=== PATIENT | male | born 1945 | race Caucasian/White ===

== ENCOUNTER 2017-05-03 14:30 | Outpatient (RCR) | payer MEDICARE, OTHER, SELFPAY ==
[2015-10-31 10:00] VITALS: BMI 34.9
[2017-04-07 00:37] VITALS: BP 115/64; PULSE 69; RESP 18; TEMP 36.7
[2017-04-12 14:43] VITALS: BP 122/70; PULSE 79; RESP 18; TEMP 36.9; BMI 56.5
--- NOTE | 2017-04-12 20:37 | PCM.WC.HP ---
(1) Nonhealing surgical wound Status: Chronic Current Visit: Yes Qualifiers: Encounter type: initial encounter Qualified Code(s): T81.89XA - Other complications of procedures, not elsewhere classified, initial encounter Code(s): T81.89XA - Other complications of procedures, not elsewhere classified, initial encounter (2) History of atrial fibrillation Status: Chronic Current Visit: Yes Code(s): Z86.79 - Personal history of other diseases of the circulatory system (3) Malnutrition Status: Chronic Current Visit: Yes Qualifiers: Malnutrition type: protein-calorie malnutrition Protein-calorie malnutrition severity: mild Qualified Code(s): E44.1 - Mild protein-calorie malnutrition Code(s): E46 - Unspecified protein-calorie malnutrition (4) Open wound of lower back Status: Chronic Current Visit: Yes Code(s): S31.000A - Unspecified open wound of lower back and pelvis without penetration into retroperitoneum, initial encounter Comment: with muscle and bone exposed s/p surgical debridement of abscess s/p lumbar spine surgery History of Present Illness Date of Service: 04/12/17 Chief Complaint: Nonhealing surgical wound of lower back History of Wound: Cuong is a 71-year-old white male who presents for treatment of nonhealing surgical wound of his lower back s/p surgical debridement for an abscess s/p lumbar spine surgery. His original surgery on his lower back was approximately 1 year ago and he has had multiple complications since that time. He recently underwent surgical debridement on 03/04/[address] Davila at [facility] in [place] and was discharged with a wound vac for healing by secondary intention with possible muscle flap closure in the future. He currently is on Augmentin for positive wound cultures. He was referred here by his Home Health nurse as she felt that his wound needed to be debrided. He follows up with his surgeon on 04/18/17 for further evaluation and recommendations as well. He denies fever, chills, nausea, vomiting, redness. He is here with his today. Past Medical History Past Medical History: Chronic Problems Chronic ulcer of right leg with fat layer exposed (Chronic) Nonhealing surgical wound (Chronic) Open wound of lower back (Chronic) with muscle and bone exposed s/p surgical debridement of abscess s/p lumbar spine surgery Lumbar disc disease (Chronic) Edema of both legs (Chronic) Leg swelling (Chronic) History of diverticulitis (Chronic) Hyperlipidemia (Chronic) Back pain at L4-L5 level (Chronic) History of non-Hodgkin's lymphoma (Chronic) Hypertension (Chronic) Shortness of breath (Chronic) Hypoxia (Chronic) History of atrial fibrillation (Chronic) Surgical wound dehiscence (Chronic) Renal insufficiency (Chronic) Soft tissue radionecrosis (Chronic) Ulcer of left heel and midfoot with fat layer exposed (Chronic) Decubitus ulcer, heel, right, unstageable (Chronic) Peripheral vascular disease (Chronic) Edema, lower extremity (Chronic) Malnutrition (Chronic) Pressure ulcer, back, lower (Chronic) Ulcer of right foot with fat layer exposed (Chronic) Decubitus ulcer of right foot, unstageable (Chronic) Peripheral vascular disease (Chronic) Ulcer of right lower extremity with fat layer exposed (Chronic) Tinea unguium (Chronic) Surgical History: - - The patient underwent partial colectomy for diverticulitis and splenectomy in 2002. Several months later, and ileostomy, which had been performed at the time of the initial surgery, was reversed. Lumbar L4-[address] Swan at the [facility] on November 02, 2015. Allergies/Adverse Reactions: Allergies sulfamethoxazole [From Bactrim] Allergy (Verified 03/29/17 13:48) Other trimethoprim [From Bactrim] Allergy (Verified 03/29/17 13:48) Other prednisone Adverse Reaction (Verified 10/26/16 16:57) Swelling Home Medications: Ambulatory Orders Medication Instructions Recorded Budesonide/Formoterol 160/4.5 2 puff INHALATION BID 02/05/16 [Symbicort 160/4.5 Mcg Inhaler (SP)] Ferrous Gluconate 240 mg PO BID 02/05/16 Folic Acid 1 mg PO QHS 02/05/16 Furosemide 40 mg PO BID PRN 02/05/16 Magnesium Oxide [Magnesium] 400 mg PO DAILY 02/05/16 Metoprolol Tartrate [Lopressor 12.5 mg PO BID 02/05/16 (beta cyndi)] Apixaban [Eliquis] 2.5 mg PO BID 03/16/16 Atorvastatin Calcium [Lipitor] 20 mg PO QHS 03/16/16 Cholecalciferol (Vitamin D3) 1,000 unit PO QHS 10/14/16 [Vitamin D3] Gabapentin [Neurontin] 100 mg PO BIDCM #60 capsule 10/25/16 Oxycodone [Oxyir] 10 mg PO BID PRN 02/13/17 - Family History Maternal Heart Disease Paternal Diabetes Lives: Spouse/ Significant Other Smoking Status: Former smoker Tobacco Use: Non-smoker Alcohol: None Drugs: None Review of Systems Constitutional: Denies: Chills, Fever, Weight Change Eyes: Denies: Pain, Vision Change HEENT: Denies: Difficulty Hearing, Difficulty Swallowing, Sinus Congestion Cardiovascular: Denies: Chest Pain, Palpitations Respiratory: Denies: Cough, Shortness of Breath Gastrointestinal: Denies: Diarrhea, Nausea, Vomiting Genitourinary: Denies: Dysuria, Hematuria Musculoskeletal: Reports: Back Pain Skin: Reports: Wounds Hematologic/ Lymphatic: Denies: Easy Bruising, Easy Bleeding - Physical Exam Vital Signs Temp Pulse Resp BP 98.4 F 79 18 122/70 H 04/12/17 14:43 04/12/17 14:43 04/12/17 14:43 04/12/17 14:43 General: Alert, Oriented x3, Cooperative, No apparent distress HEENT: Atraumatic, Normocephalic Oral: Moist Mucosa Lungs: Clear to auscultation Cardiovascular: Regular rate, Regular Rhythm Abdomen: Soft, Non Tender Extremities: - - compression stockings on LE b/l Skin: Ulcer/ Wound Wound Measurements and Assessment - Nurse 1 - General Ulcer Measurement Start: 04/12/17 14:43 Freq: Status: Active Protocol: Activity Type Activity Date Activity User E-Sign Co-Sign Detail Recorded Client Recorded Date Recorded By Document 04/12/17 14:43 DV [id number] 04/12/17 15:07 DV 04/12/17 14:43 Wound Center Nurse 1 [Ulcer Assessment Protocol: WC.WD.LOC] #7 post op lumbar ulcer -Combined with other wound No -Current Size (cm) - Length 16.2 -Current Size (cm) - Width 5.1 -Current Size (cm) - Depth 2.0 -Total Square Cm 82.62 -Date of Last Picture (Recall this 04/12/17 field) -Photo Taken Yes -Epithelialization None Present -Tunneling No -Undermining/Tunneling No -Undermining/Tunneling Starts (O' 9 clock) -Undermining/Tunneling Ends (O'clock) 2 -Maximum Distance (cm) 2.1 -Circular Undermining No -Exudate Amt Medium (34-66%) -Exudate Type Serosanguineous -Wound Margin Distinct, Outline Attached -Granulation Amt Small (1-33%) -Granulation Quality Red -Slough/Fibrin Yes -Necrosis Amt Large (67-100%) -Necrotic Tissue Type Adherent Slough -Structure Exposed Tendon Fascia Bone -Texture (Uma-wound Skin Appearance) No Abnormality Assessed -Moisture (Uma-wound Skin Appearance Assessed ) Dry/Scaly -Color (Uma-wound Skin Appearance) No Abnormality Assessed -Temperature (Uma-wound Skin No Abnormality Appearance) (Pt Warm) -Tenderness on Palpation (Uma-wound Yes Skin Appearance) -Ulcer Cleansing Rinsed/ Irrigated with Saline -Foul Odor after Cleansing No -Anesthetic Used 4% Lidocaine Solution [Edema Assessment] -Lower Limb Edema Present No WC - Nurse 2 - General Ulcer CM Notes Start: 04/12/17 14:43 Freq: Status: Active Protocol: Activity Type Activity Date Activity User E-Sign Co-Sign Detail Recorded Client Recorded Date Recorded By Document 04/12/17 15:42 [id number] 04/12/17 15:56 04/12/17 15:42 Wound Center Nurse 2 [Procedure/Treatment] #7 post op lumbar ulcer -Time 15:47 -Correct Patient Yes -Correct Side, Site, Position Yes -Correct Procedure Yes -Procedure Performed Yes -Type of Procedure Debridement -Clinical Debridement Subcutaneous -Post Debridement Size (cm) - Length 16.3 -Post Debridement Size (cm) - Width 5.2 -Post Debridement Size (cm) - Depth 2.0 -Total Square Cm 84.76 -Wound/Ulcer Outcome Not Healed -Ulcer Cleansing Rinsed/ Irrigated with Saline -Foul Odor after Cleansing No -Bioengineered Tissue No -Cetacaine Printer No -Topical Lidocaine (%) 4 -Bleeding Controlled with Pressure -Other undermining at 9-2 oclock 2. 1cm -Treatment Response Procedure Tolerated Well [See Physician Procedure note for Specifics] Pain Scale: 0-10 Numeric [Pain] -Is Patient Pain Free? Yes Psych/Mental Status: Normal Affect, Appropriate Debridement Note Post-Debridement Measurements/Treatment WC - Nurse 2 - General Ulcer CM Notes Start: 04/12/17 14:43 Freq: Status: Active Protocol: Activity Type Activity Date Activity User E-Sign Co-Sign Detail Recorded Client Recorded Date Recorded By Document 04/12/17 15:42 [id number] 04/12/17 15:56 04/12/17 15:42 Wound Center Nurse 2 #7 post op lumbar ulcer -Time 15:47 -Correct Patient Yes -Correct Side, Site, Position Yes -Correct Procedure Yes -Procedure Performed Yes -Type of Procedure Debridement -Clinical Debridement Subcutaneous -Post Debridement Size (cm) - Length 16.3 -Post Debridement Size (cm) - Width 5.2 -Post Debridement Size (cm) - Depth 2.0 -Total Square Cm 84.76 -Wound/Ulcer Outcome Not Healed -Ulcer Cleansing Rinsed/ Irrigated with Saline -Foul Odor after Cleansing No -Bioengineered Tissue No -Cetacaine Printer No -Topical Lidocaine (%) 4 -Bleeding Controlled with Pressure -Other undermining at 9-2 oclock 2. 1cm -Treatment Response Procedure Tolerated Well Pain Scale: 0-10 Numeric Is Patient Pain Free? Yes Wound debrided: post-op lumbar ulcer/wound Laterality: Not Applicable Type of Debridement: Excisional debridement Anesthesia Used: 4% Lidocaine Solution Depth: Down to and including healthy tissue, in the subcutaneous layer, to muscle, to bone Percentage of wound debrided: 100 Instrument Used: 5mm curette Tissue Removed: yellow slough and devitalized tissue Severity: Fat Layer Exposed Amount of bleeding with debridement: Mild Bleeding Controlled with: Compression and gauze Patient tolerated procedure well Assessment/Plan Active Problems Nonhealing surgical wound (Chronic) Open wound of lower back (Chronic) with muscle and bone exposed s/p surgical debridement of abscess s/p lumbar spine surgery History of atrial fibrillation (Chronic) Surgical wound dehiscence (Chronic) Malnutrition (Chronic) Assessment: chronic surgical wound dehiscence lumbar with complex abscess and recent surgical debridement. malnutrition. other multiple comorbidities. edema bilateral lower extremities. venous insufficiency. immunocompromised status. Plan: Marco As wound/ulcer was evaluated and debrided today. There is exposure of bone at the superior area of his wound/ulcer but it is not necrotic. There is thick fibrous slough present and marbled throughout the wound bed but overall the tissue appears healthy and without signs of infection currently. Will continue wound vac treatment at 125 mm Hg with protective barrier to wound bed. He will also continue Augmentin as previously prescribed. He will follow up with his surgeon next week and f/u here on Saturday unless otherwise instructed by his surgeon. He will call if he has any redness or odor or increased drainage. F/U in 1 week.
[2017-04-19 14:38] VITALS: BP 116/77; PULSE 89; RESP 24; TEMP 36.4; BMI 56.5
--- NOTE | 2017-04-19 20:30 | PCM.WC.PN ---
(1) Nonhealing surgical wound Status: Chronic Current Visit: Yes Qualifiers: Encounter type: initial encounter Qualified Code(s): T81.89XA - Other complications of procedures, not elsewhere classified, initial encounter Code(s): T81.89XA - Other complications of procedures, not elsewhere classified, initial encounter (2) History of atrial fibrillation Status: Chronic Current Visit: Yes Code(s): Z86.79 - Personal history of other diseases of the circulatory system (3) Malnutrition Status: Chronic Current Visit: Yes Qualifiers: Malnutrition type: protein-calorie malnutrition Protein-calorie malnutrition severity: mild Qualified Code(s): E44.1 - Mild protein-calorie malnutrition Code(s): E46 - Unspecified protein-calorie malnutrition (4) Open wound of lower back Status: Chronic Current Visit: Yes Code(s): S31.000A - Unspecified open wound of lower back and pelvis without penetration into retroperitoneum, initial encounter Comment: with muscle and bone exposed s/p surgical debridement of abscess s/p lumbar spine surgery Type of Wound Date of Service: 04/19/17 Chief Complaint: Nonhealing surgical wound of lower back History of Wound: Cuong is a 71-year-old white male who presents for treatment of nonhealing surgical wound of his lower back s/p surgical debridement for an abscess s/p lumbar spine surgery. His original surgery on his lower back was approximately 1 year ago and he has had multiple complications since that time. He recently underwent surgical debridement on 03/04/[address] Davila at [facility] in [place] and was discharged with a wound vac for healing by secondary intention with possible muscle flap closure in the future. He currently is on Augmentin for positive wound cultures. He was referred here by his Home Health nurse as she felt that his wound needed to be debrided. He followed up with his surgeon on 04/18/17 for further evaluation and recommendations and they plan to close the wound with a muscle flap. He denies fever, chills, nausea, vomiting, redness. He is here with his today. Progress of Wound: Cuong returns for follow up treatment of a nonhealing surgical wound of his lumbar spine s/p excisional debridement for infection of previous spinal surgery. He is tolerating the wound vac and there has been improvement in his wound. He saw his surgeon yesterday and he plans on closing the wound in approximately 4 weeks with a muscle flap as long as it continues to do well. Cuong denies any increased pain, drainage, fever or chills and continues on antibiotic treatment per ID. - Physical Exam Vital Signs Temp Pulse Resp BP 97.6 F L 89 24 H 116/77 04/19/17 14:38 04/19/17 14:38 04/19/17 14:38 04/19/17 14:38 General: Alert, Oriented x3, Cooperative, No apparent distress HEENT: Atraumatic, Normocephalic Oral: Moist Mucosa Skin: Ulcer/ Wound Wound Measurements and Assessment - Nurse 1 - General Ulcer Measurement Start: 04/12/17 14:43 Freq: Status: Active Protocol: Activity Type Activity Date Activity User E-Sign Co-Sign Detail Recorded Client Recorded Date Recorded By Document 04/19/17 14:38 SELENA [id number] 04/19/17 14:51 SELENA 04/19/17 14:38 Wound Center Nurse 1 [Ulcer Assessment Protocol: .WD.LOC] #8 post op lumbar ulcer -Combined with other wound No -Current Size (cm) - Length 17.0 -Current Size (cm) - Width 6.0 -Current Size (cm) - Depth 2.1 -Total Square Cm 102.00 -Date of Last Picture (Recall this 04/12/17 field) -Photo Taken No -Epithelialization None Present -Tunneling No -Undermining/Tunneling No -Circular Undermining No -Classification - Thickness Full Thickness with Exposed Support Structure -Change in Wound Grade/Stage No Query Text:If change please identify the Stage/Grade in the comment (ie. S2 G3) -Exudate Amt Medium (34-66%) -Exudate Type Serosanguineous -Wound Margin Distinct, Outline Attached -Granulation Amt Small (1-33%) -Granulation Quality [place] -Slough/Fibrin Yes -Necrosis Amt None Present (0 %) -Necrotic Tissue Type Adherent Slough -Structure Exposed Bone -Texture (Uma-wound Skin Appearance) No Abnormality -Moisture (Uma-wound Skin Appearance No Abnormality ) -Color (Uma-wound Skin Appearance) No Abnormality -Temperature (Uma-wound Skin No Abnormality Appearance) (Pt Warm) -Tenderness on Palpation (Uma-wound No Skin Appearance) -Ulcer Cleansing Rinsed/ Irrigated with Saline -Foul Odor after Cleansing No -Anesthetic Used 5% Lidocaine Gel - Nurse 2 - General Ulcer CM Notes Start: 04/12/17 14:43 Freq: Status: Active Protocol: Activity Type Activity Date Activity User E-Sign Co-Sign Detail Recorded Client Recorded Date Recorded By Document 04/19/17 16:21 [id number] 04/19/17 16:31 DV 04/19/17 16:21 Wound Center Nurse 2 [Procedure/Treatment] -Time 16:22 -Correct Patient Yes -Correct Side, Site, Position Yes -Correct Procedure Yes -Procedure Performed Yes -Type of Procedure Debridement -Clinical Debridement Muscle -Post Debridement Size (cm) - Length 16.6 -Post Debridement Size (cm) - Width 6.0 -Post Debridement Size (cm) - Depth 1.5 -Total Square Cm 99.60 -Wound/Ulcer Outcome Not Healed -Ulcer Cleansing Rinsed/ Irrigated with Saline -Foul Odor after Cleansing No -Bioengineered Tissue No -Cetacaine Fishtail No -Bleeding Controlled with Pressure -Treatment Response Procedure Tolerated Well [See Physician Procedure note for Specifics] Pain Scale: 0-10 Numeric [Pain] -Is Patient Pain Free? Yes Psych/Mental Status: Normal Affect, Appropriate Debridement Note Post-Debridement Measurements/Treatment - Nurse 2 - General Ulcer CM Notes Start: 04/12/17 14:43 Freq: Status: Active Protocol: Activity Type Activity Date Activity User E-Sign Co-Sign Detail Recorded Client Recorded Date Recorded By Document 04/12/17 15:42 [id number] 04/12/17 15:56 Document 04/19/17 16:21 [id number] 04/19/17 16:31 04/12/17 04/19/17 15:42 16:21 Wound Center Nurse 2 #8 post op lumbar ulcer -Time 15:47 16:22 -Correct Patient Yes Yes -Correct Side, Site, Position Yes Yes -Correct Procedure Yes Yes -Procedure Performed Yes Yes -Type of Procedure Debridement Debridement -Clinical Debridement Subcutaneous Muscle -Post Debridement Size (cm) - Length 16.3 16.6 -Post Debridement Size (cm) - Width 5.2 6.0 -Post Debridement Size (cm) - Depth 2.0 1.5 -Total Square Cm 84.76 99.60 -Wound/Ulcer Outcome Not Healed Not Healed -Ulcer Cleansing Rinsed/ Rinsed/ Irrigated with Irrigated with Saline Saline -Foul Odor after Cleansing No No -Bioengineered Tissue No No -Cetacaine Fishtail No No -Topical Lidocaine (%) 4 -Bleeding Controlled with Pressure Pressure -Other undermining at 9-2 oclock 2. 1cm -Treatment Response Procedure Procedure Tolerated Well Tolerated Well Pain Scale: 0-10 Numeric Is Patient Pain Free? Yes Yes Wound debrided: post-op lumbar ulcer Laterality: Not Applicable Type of Debridement: Excisional debridement Anesthesia Used: 4% Lidocaine Solution, 5% Lidocaine Gel Depth: Down to and including healthy tissue, in the subcutaneous layer, to muscle Percentage of wound debrided: 100 Instrument Used: 5mm curette Tissue Removed: yellow slough, devitalized tissue Severity: Necrosis of Muscle Amount of bleeding with debridement: Mild Bleeding Controlled with: Compression and gauze Patient tolerated procedure well Assessment/Plan Active Problems Nonhealing surgical wound (Chronic) Open wound of lower back (Chronic) with muscle and bone exposed s/p surgical debridement of abscess s/p lumbar spine surgery History of atrial fibrillation (Chronic) Surgical wound dehiscence (Chronic) Malnutrition (Chronic) Assessment: chronic surgical wound dehiscence lumbar with complex abscess and recent surgical debridement. malnutrition. other multiple comorbidities. edema bilateral lower extremities. venous insufficiency. immunocompromised status. Plan: Cuong's wound/ulcer was evaluated and debrided today. There is exposure of bone at the superior area of his wound/ulcer but it is not necrotic. There is thick fibrous slough present and marbled throughout the wound bed but overall the tissue appears healthy and without signs of infection currently. Will continue wound vac treatment at 125 mm Hg with protective barrier to wound bed. He will also continue Augmentin as previously prescribed. He will call if he has any redness or odor or increased drainage. F/U in 2 weeks.
[2017-05-03 14:53] VITALS: BP 141/72; PULSE 67; RESP 20; TEMP 35.8; BMI 56.5
--- NOTE | 2017-05-03 20:48 | PN.PCM_ITS ---
(1) Nonhealing surgical wound Status: Chronic Current Visit: Yes Qualifiers: Encounter type: initial encounter Qualified Code(s): T81.89XA - Other complications of procedures, not elsewhere classified, initial encounter Code(s): T81.89XA - Other complications of procedures, not elsewhere classified , initial encounter (2) History of atrial fibrillation Status: Chronic Current Visit: Yes Code(s): Z86.79 - Personal history of other diseases of the circulatory system (3) Malnutrition Status: Chronic Current Visit: Yes Qualifiers: Malnutrition type: protein-calorie malnutrition Protein-calorie malnutrition severity: mild Qualified Code(s): E44.1 - Mild protein-calorie malnutrition Code(s): E46 - Unspecified protein-calorie malnutrition (4) Open wound of lower back Status: Chronic Current Visit: Yes Code(s): S31.000A - Unspecified open wound of lower back and pelvis without penetration into retroperitoneum, initial encounter Comment: with muscle and bone exposed s/p surgical debridement of abscess s/p lumbar spine surgery Type of Wound Date of Service: 05/03/17 Chief Complaint: Nonhealing surgical wound of lower back History of Wound: Cuong is a 71-year-old white male who presents for treatment of nonhealing surgical wound of his lower back s/p surgical debridement for an abscess s/p lumbar spine surgery. His original surgery on his lower back was approximately 1 year ago and he has had multiple complications since that time. He recently underwent surgical debridement on 03/04/[address] Davila at [facility] in [place] and was discharged with a wound vac for healing by secondary intention with possible muscle flap closure in the future. He currently is on Augmentin for positive wound cultures. He was referred here by his Home Health nurse as she felt that his wound needed to be debrided. He followed up with his surgeon on 04/18/17 for further evaluation and recommendations and they plan to close the wound with a muscle flap. He denies fever, chills, nausea, vomiting, redness. He is here with his today. Progress of Wound: Cuong returns for follow up treatment of a nonhealing surgical wound of his lumbar spine s/p excisional debridement for infection of previous spinal surgery. He is tolerating the wound vac and there has been improvement in his wound. He is scheduled to have closure of his wound by his surgeon at [facility] on 05/14/17. Cuong denies any increased pain, drainage, fever or chills and continues on antibiotic treatment per ID. - Physical Exam Vital Signs Temp Pulse Resp BP 96.4 F L 67 20 H 141/72 H 05/03/17 14:53 05/03/17 14:53 05/03/17 14:53 05/03/17 14:53 General: Alert, Oriented x3, Cooperative, No apparent distress HEENT: Atraumatic, Normocephalic Oral: Moist Mucosa Skin: Ulcer/ Wound Wound Measurements and Assessment WC - Nurse 1 - General Ulcer Measurement Start: 04/12/17 14:43 Freq: Status: Active Protocol: Activity Type Activity Date Activity User E-Sign Co-Sign Detail Recorded Client Recorded Date Recorded By Document 05/03/17 14:53 DL [id number] 05/03/17 15:02 DL 05/03/17 14:53 Wound Center Nurse 1 [Ulcer Assessment Protocol: WC.WD.LOC] #8 post op lumbar ulcer -Current Size (cm) - Length 16 -Current Size (cm) - Width 5.8 -Current Size (cm) - Depth 1.1 -Total Square Cm 92.8 -Photo Taken No -Undermining/Tunneling Starts (O' 10 clock) -Undermining/Tunneling Ends (O'clock) 1 -Maximum Distance (cm) 1.4 -Exudate Amt Medium (34-66%) -Exudate Type Serosanguineous -Wound Margin Distinct, Outline Attached -Granulation Amt Medium (34-66%) -Granulation Quality Red -Necrosis Amt Medium (34-66%) -Necrotic Tissue Type Adherent Slough -Structure Exposed N/A -Texture (Uma-wound Skin Appearance) No Abnormality -Moisture (Uma-wound Skin Appearance Dry/Scaly ) -Color (Uma-wound Skin Appearance) No Abnormality -Temperature (Uma-wound Skin No Abnormality Appearance) (Pt Warm) -Tenderness on Palpation (Uma-wound No Skin Appearance) -Ulcer Cleansing Wound Cleanser -Foul Odor after Cleansing No -Anesthetic Used 4% Lidocaine Solution WC - Nurse 2 - General Ulcer CM Notes Start: 04/12/17 14:43 Freq: Status: Active Protocol: Activity Type Activity Date Activity User E-Sign Co-Sign Detail Recorded Client Recorded Date Recorded By Document 05/03/17 16:07 TM [id number] 05/03/17 16:17 05/03/17 16:07 Wound Center Nurse 2 [Procedure/Treatment] -Time 16:08 -Correct Patient Yes -Correct Side, Site, Position Yes -Correct Procedure Yes -Procedure Performed Yes -Type of Procedure Debridement -Clinical Debridement Subcutaneous -Post Debridement Size (cm) - Length 16.5 -Post Debridement Size (cm) - Width 6.0 -Post Debridement Size (cm) - Depth 1.5 -Total Square Cm 99.00 -Wound/Ulcer Outcome Not Healed -Ulcer Cleansing Rinsed/ Irrigated with Saline -Foul Odor after Cleansing No -Bioengineered Tissue No -Cetacaine [place] No -Topical Lidocaine (%) 5 -Bleeding Controlled with Pressure -Treatment Response Procedure Tolerated Well [See Physician Procedure note for Specifics] Pain Scale: 0-10 Numeric [Pain] -Is Patient Pain Free? Yes Psych/Mental Status: Normal Affect, Appropriate Debridement Note Post-Debridement Measurements/Treatment WC - Nurse 2 - General Ulcer CM Notes Start: 04/12/17 14:43 Freq: Status: Active Protocol: Activity Type Activity Date Activity User E-Sign Co-Sign Detail Recorded Client Recorded Date Recorded By Document 04/12/17 15:42 [id number] 04/12/17 15:56 Document 04/19/17 16:21 [id number] 04/19/17 16:31 DV Document 05/03/17 16:07 [id number] 05/03/17 16:17 04/12/17 04/19/17 05/03/17 15:42 16:21 16:07 Wound Center Nurse 2 #8 post op lumbar ulcer -Time 15:47 16:22 16:08 -Correct Patient Yes Yes Yes -Correct Side, Site, Position Yes Yes Yes -Correct Procedure Yes Yes Yes -Procedure Performed Yes Yes Yes -Type of Procedure Debridement Debridement Debridement -Clinical Debridement Subcutaneous Muscle Subcutaneous -Post Debridement Size (cm) - Length 16.3 16.6 16.5 -Post Debridement Size (cm) - Width 5.2 6.0 6.0 -Post Debridement Size (cm) - Depth 2.0 1.5 1.5 -Total Square Cm 84.76 99.60 99.00 -Wound/Ulcer Outcome Not Healed Not Healed Not Healed -Ulcer Cleansing Rinsed/ Rinsed/ Rinsed/ Irrigated with Irrigated with Irrigated with Saline Saline Saline -Foul Odor after Cleansing No No No -Bioengineered Tissue No No No -Cetacaine [place] No No No -Topical Lidocaine (%) 4 5 -Bleeding Controlled with Pressure Pressure Pressure -Other undermining at 9-2 oclock 2. 1cm -Treatment Response Procedure Procedure Procedure Tolerated Well Tolerated Well Tolerated Well Pain Scale: 0-10 Numeric Is Patient Pain Free? Yes Yes Yes Wound debrided: post-op lumbar ulcer Laterality: Not Applicable Type of Debridement: Excisional debridement Anesthesia Used: 4% Lidocaine Solution Depth: Down to and including healthy tissue, in the subcutaneous layer Percentage of wound debrided: 100 Instrument Used: 7mm curette Tissue Removed: yellow slough, devitalized tissue Severity: Fat Layer Exposed Amount of bleeding with debridement: Mild Bleeding Controlled with: Compression and gauze Patient tolerated procedure well Assessment/Plan Active Problems Nonhealing surgical wound (Chronic) Open wound of lower back (Chronic) with muscle and bone exposed s/p surgical debridement of abscess s/p lumbar spine surgery History of atrial fibrillation (Chronic) Surgical wound dehiscence (Chronic) Malnutrition (Chronic) Assessment: chronic surgical wound dehiscence lumbar with complex abscess and recent surgical debridement. malnutrition. other multiple comorbidities. edema bilateral lower extremities. venous insufficiency. immunocompromised status. Plan: Cuong's wound/ulcer was evaluated and debrided today. There is exposure of bone still at the superior area of his wound/ulcer but it is not necrotic. There is thick fibrous slough present and marbled throughout the wound bed but overall the tissue appears healthy and without signs of infection currently. Will continue wound vac treatment at 125 mm Hg with protective barrier to wound bed. He will also continue Augmentin as previously prescribed. He will call if he has any redness or odor or increased drainage. F/U post-operatively if necessary.
== END 2017-05-05 23:59 ==
LOC: WC 14:30
PROVIDERS: Family Provider Family Medicine; PCP Family Medicine; Visit Provider Family Medicine
DX: I87.2 Venous insufficiency (chronic) (peripheral) (principal); R60.0 Localized edema; T81.30XA Disruption of wound, unspecified, initial encounter; I48.91 Unspecified atrial fibrillation; S31.000A Unspecified open wound of lower back and pelvis without penetration into retroperitoneum, initial encounter; X58.XXXA Exposure to other specified factors, initial encounter; N18.3 Chronic kidney disease, stage 3 (moderate); D63.1 Anemia in chronic kidney disease; E44.1 Mild protein-calorie malnutrition
CPT/HCPCS: 11042; 11043; 11045; 11046; 36415; 80069; 85014; 85018; 85025; 96372; 97605; 97606; 99213; J0885; G0463

== ENCOUNTER 2017-05-31 10:17 | Outpatient (RCR) | payer MEDICARE, OTHER, SELFPAY ==
[2015-10-31 10:00] VITALS: BMI 34.9
[2017-05-06 00:58] VITALS: BP 141/72; PULSE 67; RESP 20; TEMP 35.8; BMI 56.5
[2017-05-31 13:45] VITALS: BP 119/60; PULSE 67; RESP 16; TEMP 36.6; BMI 56.5
--- NOTE | 2017-05-31 18:56 | PCM.WC.PN ---
(1) Nonhealing surgical wound Status: Chronic Current Visit: Yes Qualifiers: Encounter type: subsequent encounter Qualified Code(s): T81.89XD - Other complications of procedures, not elsewhere classified, subsequent encounter Code(s): T81.89XA - Other complications of procedures, not elsewhere classified, initial encounter (2) Open wound of lower back Status: Chronic Current Visit: Yes Code(s): S31.000A - Unspecified open wound of lower back and pelvis without penetration into retroperitoneum, initial encounter Comment: with muscle and bone exposed s/p surgical debridement of abscess s/p lumbar spine surgery (3) Lumbar disc disease Status: Chronic Current Visit: Yes Code(s): M51.9 - Unspecified thoracic, thoracolumbar and lumbosacral intervertebral disc disorder (4) History of non-Hodgkin's lymphoma Status: Chronic Current Visit: No Code(s): Z85.72 - Personal history of non-Hodgkin lymphomas (5) Soft tissue radionecrosis Status: Chronic Current Visit: No Code(s): M79.89 - Other specified soft tissue disorders; W88.8XXA - Exposure to other ionizing radiation, initial encounter Type of Wound Date of Service: 05/31/17 Chief Complaint: Nonhealing surgical wound of lower back History of Wound: Cuong is a 71-year-old white male who presents for treatment of nonhealing surgical wound of his lower back s/p surgical debridement for an abscess s/p lumbar spine surgery. His original surgery on his lower back was approximately 1 year ago and he has had multiple complications since that time. He recently underwent surgical debridement on 03/04/[address] Davila at [facility] in [place] and was discharged with a wound vac for healing by secondary intention with possible muscle flap closure in the future. He currently is on Augmentin for positive wound cultures. He was referred here by his Home Health nurse as she felt that his wound needed to be debrided. He followed up with his surgeon on 04/18/17 for further evaluation and recommendations and they plan to close the wound with a muscle flap. He denies fever, chills, nausea, vomiting, redness. He is here with his today. Progress of Wound: Cuong returns for follow up treatment of a nonhealing surgical wound of his lumbar spine s/p excisional debridement for infection of previous spinal surgery. He was scheduled to have closure of his wound by his surgeon at [facility] on 05/14/17 but his surgeon felt that there was infection present and delayed surgery. His surgeon discontinued the wound vac at Cuong's request and he has been using wet to dry dressings 2-3 times/day. Cuong denies any increased pain, drainage, fever or chills and is currently taking Keflex prescribed by surgery at [facility] for positive wound culture per Cuong. He is scheduled to see them again on 06/13/17. - Physical Exam Vital Signs Temp Pulse Resp BP 97.8 F 67 16 119/60 05/31/17 13:45 05/31/17 13:45 05/31/17 13:45 05/31/17 13:45 General: Alert, Oriented x3, Cooperative, No apparent distress HEENT: Atraumatic, Normocephalic Oral: Moist Mucosa Skin: Ulcer/ Wound Wound Measurements and Assessment WC - Nurse 1 - General Ulcer Measurement Start: 05/31/17 13:45 Freq: Status: Active Protocol: Activity Type Activity Date Activity User E-Sign Co-Sign Detail Recorded Client Recorded Date Recorded By Document 05/31/17 13:45 [facility] [id number] 05/31/17 13:56 [facility] 05/31/17 13:45 Wound Center Nurse 1 [Ulcer Assessment Protocol: ELIZABETH.WD.LOC] #8 post op lumbar ulcer -Combined with other wound No -Current Size (cm) - Length 15.6 -Current Size (cm) - Width 5.1 -Current Size (cm) - Depth 1.4 -Total Square Cm 79.56 -Date of Last Picture (Recall this 05/31/17 field) -Photo Taken Yes -Tunneling No -Undermining/Tunneling No -Exudate Amt Medium (34-66%) -Exudate Type Sanguineous -Granulation Amt Medium (34-66%) -Granulation Quality Pale Red -Slough/Fibrin Yes -Necrosis Amt Medium (34-66%) -Necrotic Tissue Type Adherent Slough -Structure Exposed N/A -Texture (Uma-wound Skin Appearance) Scarring -Moisture (Uma-wound Skin Appearance Assessed ) -Color (Uma-wound Skin Appearance) Assessed -Temperature (Uma-wound Skin No Abnormality Appearance) (Pt Warm) -Tenderness on Palpation (Uma-wound No Skin Appearance) -Ulcer Cleansing Rinsed/ Irrigated with Saline -Foul Odor after Cleansing No -Anesthetic Used 4% Lidocaine Solution - Nurse 2 - General Ulcer CM Notes Start: 05/31/17 13:45 Freq: Status: Active Protocol: Activity Type Activity Date Activity User E-Sign Co-Sign Detail Recorded Client Recorded Date Recorded By Document 05/31/17 14:32 [id number] 05/31/17 14:44 05/31/17 14:32 Wound Center Nurse 2 [Procedure/Treatment] -Time 14:32 -Correct Patient Yes -Correct Side, Site, Position Yes -Correct Procedure Yes -Procedure Performed Yes -Type of Procedure Debridement -Clinical Debridement Muscle -Post Debridement Size (cm) - Length 15.7 -Post Debridement Size (cm) - Width 5.7 -Post Debridement Size (cm) - Depth 1.5 -Total Square Cm 89.49 -Wound/Ulcer Outcome Not Healed -Ulcer Cleansing Rinsed/ Irrigated with Saline -Foul Odor after Cleansing No -Bioengineered Tissue No -Cetacaine [place] No -Topical Lidocaine (%) 5 -Bleeding Controlled with Pressure -Treatment Response Procedure Tolerated Well [See Physician Procedure note for Specifics] Pain Scale: 0-10 Numeric [Pain] -Is Patient Pain Free? Yes Psych/Mental Status: Normal Affect, Appropriate Debridement Note Post-Debridement Measurements/Treatment - Nurse 2 - General Ulcer CM Notes Start: 05/31/17 13:45 Freq: Status: Active Protocol: Activity Type Activity Date Activity User E-Sign Co-Sign Detail Recorded Client Recorded Date Recorded By Document 05/31/17 14:32 [id number] 05/31/17 14:44 05/31/17 14:32 Wound Center Nurse 2 #8 post op lumbar ulcer -Time 14:32 -Correct Patient Yes -Correct Side, Site, Position Yes -Correct Procedure Yes -Procedure Performed Yes -Type of Procedure Debridement -Clinical Debridement Muscle -Post Debridement Size (cm) - Length 15.7 -Post Debridement Size (cm) - Width 5.7 -Post Debridement Size (cm) - Depth 1.5 -Total Square Cm 89.49 -Wound/Ulcer Outcome Not Healed -Ulcer Cleansing Rinsed/ Irrigated with Saline -Foul Odor after Cleansing No -Bioengineered Tissue No -Cetacaine [place] No -Topical Lidocaine (%) 5 -Bleeding Controlled with Pressure -Treatment Response Procedure Tolerated Well Pain Scale: 0-10 Numeric Is Patient Pain Free? Yes Wound debrided: post-op lumbar ulcer Laterality: Not Applicable Type of Debridement: Excisional debridement Anesthesia Used: 4% Lidocaine Solution Depth: Down to and including healthy tissue, in the subcutaneous layer, to muscle Percentage of wound debrided: 100 Instrument Used: 5mm curette, #15 blade, Forceps Tissue Removed: yellow slough, thick fibrous slough and devitalized tissue Severity: Necrosis of Muscle Amount of bleeding with debridement: Mild Bleeding Controlled with: Compression and gauze Patient tolerated procedure well Assessment/Plan Active Problems Nonhealing surgical wound (Chronic) Open wound of lower back (Chronic) with muscle and bone exposed s/p surgical debridement of abscess s/p lumbar spine surgery Lumbar disc disease (Chronic) Assessment: chronic surgical wound dehiscence lumbar with complex abscess and recent surgical debridement. malnutrition. other multiple comorbidities. edema bilateral lower extremities. venous insufficiency. immunocompromised status. Plan: Marco As wound/ulcer was evaluated and debrided today. There is exposure of bone still at the superior area of his wound/ulcer but it is not necrotic. There is thick fibrous slough present and marbled throughout the wound bed but especially at the base of the wound but overall the tissue appears healthy and without signs of infection currently. Will continue to use wet to dry dressings as prescribed by the surgeon. Complete Keflex as prescribed by surgery. He will call if he has any redness or odor or increased drainage. F/U 1 week.
--- NOTE | 2017-05-31 19:04 | PN.PCM_ITS ---
(1) Nonhealing surgical wound Status: Chronic Current Visit: Yes Qualifiers: Encounter type: subsequent encounter Qualified Code(s): T81.89XD - Other complications of procedures, not elsewhere classified, subsequent encounter Code(s): T81.89XA - Other complications of procedures, not elsewhere classified , initial encounter (2) Open wound of lower back Status: Chronic Current Visit: Yes Code(s): S31.000A - Unspecified open wound of lower back and pelvis without penetration into retroperitoneum, initial encounter Comment: with muscle and bone exposed s/p surgical debridement of abscess s/p lumbar spine surgery (3) Lumbar disc disease Status: Chronic Current Visit: Yes Code(s): M51.9 - Unspecified thoracic, thoracolumbar and lumbosacral intervertebral disc disorder (4) History of non-Hodgkin's lymphoma Status: Chronic Current Visit: No Code(s): Z85.72 - Personal history of non- Hodgkin lymphomas (5) Soft tissue radionecrosis Status: Chronic Current Visit: No Code(s): M79.89 - Other specified soft tissue disorders; W88.8XXA - Exposure to other ionizing radiation, initial encounter Type of Wound Date of Service: 05/31/17 Chief Complaint: Nonhealing surgical wound of lower back History of Wound: Cuong is a 71-year-old white male who presents for treatment of nonhealing surgical wound of his lower back s/p surgical debridement for an abscess s/p lumbar spine surgery. His original surgery on his lower back was approximately 1 year ago and he has had multiple complications since that time. He recently underwent surgical debridement on 03/04/[address] Davila at [facility] in [place] and was discharged with a wound vac for healing by secondary intention with possible muscle flap closure in the future. He currently is on Augmentin for positive wound cultures. He was referred here by his Home Health nurse as she felt that his wound needed to be debrided. He followed up with his surgeon on 04/18/17 for further evaluation and recommendations and they plan to close the wound with a muscle flap. He denies fever, chills, nausea, vomiting, redness. He is here with his today. Progress of Wound: Cuong returns for follow up treatment of a nonhealing surgical wound of his lumbar spine s/p excisional debridement for infection of previous spinal surgery. He was scheduled to have closure of his wound by his surgeon at [facility] on 05/14/17 but his surgeon felt that there was infection present and delayed surgery. His surgeon discontinued the wound vac at Cuong's request and he has been using wet to dry dressings 2-3 times/day. Cuong denies any increased pain, drainage, fever or chills and is currently taking Keflex prescribed by surgery at [facility] for positive wound culture per Cuong. He is scheduled to see them again on 06/13/17. - Physical Exam Vital Signs Temp Pulse Resp BP 97.8 F 67 16 119/60 05/31/17 13:45 05/31/17 13:45 05/31/17 13:45 05/31/17 13:45 General: Alert, Oriented x3, Cooperative, No apparent distress HEENT: Atraumatic, Normocephalic Oral: Moist Mucosa Skin: Ulcer/ Wound Wound Measurements and Assessment WC - Nurse 1 - General Ulcer Measurement Start: 05/31/17 13:45 Freq: Status: Active Protocol: Activity Type Activity Date Activity User E-Sign Co-Sign Detail Recorded Client Recorded Date Recorded By Document 05/31/17 13:45 [facility] [id number] 05/31/17 13:56 [facility] 05/31/17 13:45 Wound Center Nurse 1 [Ulcer Assessment Protocol: ELIZABETH.WD.LOC] #8 post op lumbar ulcer -Combined with other wound No -Current Size (cm) - Length 15.6 -Current Size (cm) - Width 5.1 -Current Size (cm) - Depth 1.4 -Total Square Cm 79.56 -Date of Last Picture (Recall this 05/31/17 field) -Photo Taken Yes -Tunneling No -Undermining/Tunneling No -Exudate Amt Medium (34-66%) -Exudate Type Sanguineous -Granulation Amt Medium (34-66%) -Granulation Quality Pale Red -Slough/Fibrin Yes -Necrosis Amt Medium (34-66%) -Necrotic Tissue Type Adherent Slough -Structure Exposed N/A -Texture (Uma-wound Skin Appearance) Scarring -Moisture (Uma-wound Skin Appearance Assessed ) -Color (Uma-wound Skin Appearance) Assessed -Temperature (Uma-wound Skin No Abnormality Appearance) (Pt Warm) -Tenderness on Palpation (Uma-wound No Skin Appearance) -Ulcer Cleansing Rinsed/ Irrigated with Saline -Foul Odor after Cleansing No -Anesthetic Used 4% Lidocaine Solution - Nurse 2 - General Ulcer CM Notes Start: 05/31/17 13:45 Freq: Status: Active Protocol: Activity Type Activity Date Activity User E-Sign Co-Sign Detail Recorded Client Recorded Date Recorded By Document 05/31/17 14:32 [id number] 05/31/17 14:44 05/31/17 14:32 Wound Center Nurse 2 [Procedure/Treatment] -Time 14:32 -Correct Patient Yes -Correct Side, Site, Position Yes -Correct Procedure Yes -Procedure Performed Yes -Type of Procedure Debridement -Clinical Debridement Muscle -Post Debridement Size (cm) - Length 15.7 -Post Debridement Size (cm) - Width 5.7 -Post Debridement Size (cm) - Depth 1.5 -Total Square Cm 89.49 -Wound/Ulcer Outcome Not Healed -Ulcer Cleansing Rinsed/ Irrigated with Saline -Foul Odor after Cleansing No -Bioengineered Tissue No -Cetacaine [place] No -Topical Lidocaine (%) 5 -Bleeding Controlled with Pressure -Treatment Response Procedure Tolerated Well [See Physician Procedure note for Specifics] Pain Scale: 0-10 Numeric [Pain] -Is Patient Pain Free? Yes Psych/Mental Status: Normal Affect, Appropriate Debridement Note Post-Debridement Measurements/Treatment - Nurse 2 - General Ulcer CM Notes Start: 05/31/17 13:45 Freq: Status: Active Protocol: Activity Type Activity Date Activity User E-Sign Co-Sign Detail Recorded Client Recorded Date Recorded By Document 05/31/17 14:32 [id number] 05/31/17 14:44 05/31/17 14:32 Wound Center Nurse 2 #8 post op lumbar ulcer -Time 14:32 -Correct Patient Yes -Correct Side, Site, Position Yes -Correct Procedure Yes -Procedure Performed Yes -Type of Procedure Debridement -Clinical Debridement Muscle -Post Debridement Size (cm) - Length 15.7 -Post Debridement Size (cm) - Width 5.7 -Post Debridement Size (cm) - Depth 1.5 -Total Square Cm 89.49 -Wound/Ulcer Outcome Not Healed -Ulcer Cleansing Rinsed/ Irrigated with Saline -Foul Odor after Cleansing No -Bioengineered Tissue No -Cetacaine [place] No -Topical Lidocaine (%) 5 -Bleeding Controlled with Pressure -Treatment Response Procedure Tolerated Well Pain Scale: 0-10 Numeric Is Patient Pain Free? Yes Wound debrided: post-op lumbar ulcer Laterality: Not Applicable Type of Debridement: Excisional debridement Anesthesia Used: 4% Lidocaine Solution Depth: Down to and including healthy tissue, in the subcutaneous layer, to muscle Percentage of wound debrided: 100 Instrument Used: 5mm curette, #15 blade, Forceps Tissue Removed: yellow slough, thick fibrous slough and devitalized tissue Severity: Necrosis of Muscle Amount of bleeding with debridement: Mild Bleeding Controlled with: Compression and gauze Patient tolerated procedure well Assessment/Plan Active Problems Nonhealing surgical wound (Chronic) Open wound of lower back (Chronic) with muscle and bone exposed s/p surgical debridement of abscess s/p lumbar spine surgery Lumbar disc disease (Chronic) Assessment: chronic surgical wound dehiscence lumbar with complex abscess and recent surgical debridement. malnutrition. other multiple comorbidities. edema bilateral lower extremities. venous insufficiency. immunocompromised status. Plan: Marco As wound/ulcer was evaluated and debrided today. There is exposure of bone still at the superior area of his wound/ulcer but it is not necrotic. There is thick fibrous slough present and marbled throughout the wound bed but especially at the base of the wound but overall the tissue appears healthy and without signs of infection currently. Will continue to use wet to dry dressings as prescribed by the surgeon. Complete Keflex as prescribed by surgery. He will call if he has any redness or odor or increased drainage. F/U 1 week.
== END 2017-06-05 23:59 ==
LOC: WC 10:17
PROVIDERS: Family Provider Family Medicine; PCP Family Medicine; Visit Provider Family Medicine
DX: L59.8 Other specified disorders of the skin and subcutaneous tissue related to radiation (principal); Y84.2 Radiological procedure and radiotherapy as the cause of abnormal reaction of the patient, or of later complication, without mention of misadventure at the time of the procedure; Z85.72 Personal history of non-Hodgkin lymphomas; M51.9 Unspecified thoracic, thoracolumbar and lumbosacral intervertebral disc disorder; T81.30XA Disruption of wound, unspecified, initial encounter
CPT/HCPCS: 11043; 11046

== ENCOUNTER → 2017-06-03 11:09 | Outpatient (CLI) | payer MEDICARE, OTHER, SELFPAY ==
[2015-10-31 10:00] VITALS: BMI 34.9
[2017-06-03 11:44] VITALS: BP 116/63; PULSE 65; RESP 18; TEMP 36.4; O2SAT 99; BMI 25.9
[2017-06-03 11:56] LABS: Hematocrit 32.3 % (40-54); Hemoglobin 10.4 g/dl (13.0-16.5)
[2017-06-03 12:05] LABS: Albumin, Serum 2.6 g/dL (3.2-5.0); BUN 61 mg/dL (7-18); BUN/Creat Ratio 37.2 RATIO (10-20); Calcium,Total 8.9 mg/dL (8.5-10.1); Chloride 108 mmol/L (98-107); Creatinine, Serum 1.64 mg/dL (0.70-1.30); EST Glomerular Filtration Rate 44 mL/min (>60); Est Glom Filt Rate - Afr Amer 53 mL/min (>60); Estimated Creatinine Clearance 38.81 ml/min; Glucose 95 mg/dL (70-110); Phosphorus 3.7 mg/dL (2.5-4.9); Potassium 4.5 mmol/L (3.5-5.1); Sodium Level 138 mmol/L (136-145)
== END ==
PROVIDERS: Family Provider Family Medicine; PCP Family Medicine; Visit Provider Internal Medicine Nephrology
DX: N18.3 Chronic kidney disease, stage 3 (moderate) (principal); D63.1 Anemia in chronic kidney disease
CPT/HCPCS: 80069; 85014; 85018; 96372; J0885

== ENCOUNTER 2017-06-07 09:28 | Outpatient (RCR) | payer MEDICARE, OTHER, SELFPAY ==
[2015-10-31 10:00] VITALS: BMI 34.9
[2017-06-06 00:41] VITALS: BP 119/60; PULSE 67; RESP 16; TEMP 36.6; BMI 56.5
[2017-06-07 14:50] VITALS: BP 126/65; PULSE 76; RESP 18; TEMP 36.3; BMI 56.5
--- NOTE | 2017-06-07 19:11 | PN.PCM_ITS ---
(1) Nonhealing surgical wound Status: Chronic Current Visit: Yes Qualifiers: Encounter type: subsequent encounter Code(s): T81.89XA - Other complications of procedures, not elsewhere classified , initial encounter (2) Open wound of lower back Status: Chronic Current Visit: Yes Code(s): S31.000A - Unspecified open wound of lower back and pelvis without penetration into retroperitoneum, initial encounter Comment: with muscle and bone exposed s/p surgical debridement of abscess s/p lumbar spine surgery Type of Wound Date of Service: 06/07/17 Chief Complaint: Nonhealing surgical wound of lower back History of Wound: Cuong is a 71-year-old white male who presents for treatment of nonhealing surgical wound of his lower back s/p surgical debridement for an abscess s/p lumbar spine surgery. His original surgery on his lower back was approximately 1 year ago and he has had multiple complications since that time. He recently underwent surgical debridement on 03/04/[address] Davila at [facility] in [place] and was discharged with a wound vac for healing by secondary intention with possible muscle flap closure in the future. He currently is on Augmentin for positive wound cultures. He was referred here by his Home Health nurse as she felt that his wound needed to be debrided. He followed up with his surgeon on 04/18/17 for further evaluation and recommendations and they plan to close the wound with a muscle flap. He denies fever, chills, nausea, vomiting, redness. He is here with his today. Progress of Wound: Cuong returns for follow up treatment of a nonhealing surgical wound of his lumbar spine s/p excisional debridement for infection of previous spinal surgery. He was scheduled to have closure of his wound by his surgeon at [facility] on 05/14/17 but his surgeon felt that there was infection present and delayed surgery. His surgeon discontinued the wound vac at Cuong's request and he has been using wet to dry dressings 2-3 times/day. Cuong denies any increased pain, drainage, fever or chills and completed Keflex prescribed by surgery at [facility] for positive wound culture per Cuong. He is scheduled to see them again on 06/13/17. He has been tolerating wet to dry dressings and there is no odor or increase in drainage. - Physical Exam Vital Signs Temp Pulse Resp BP 97.3 F L 76 18 126/65 H 06/07/17 14:50 06/07/17 14:50 06/07/17 14:50 06/07/17 14:50 General: Alert, Oriented x3, Cooperative, No apparent distress HEENT: Atraumatic, Normocephalic Oral: Moist Mucosa Skin: Ulcer/ Wound Wound Measurements and Assessment WC - Nurse 1 - General Ulcer Measurement Start: 06/07/17 14:50 Freq: Status: Active Protocol: Activity Type Activity Date Activity User E-Sign Co-Sign Detail Recorded Client Recorded Date Recorded By Document 06/07/17 14:50 MW [id number] 06/07/17 15:10 MW 06/07/17 14:50 Wound Center Nurse 1 [Ulcer Assessment Protocol: ELIZABETH.WD.LOC] #8 post op lumbar ulcer -Combined with other wound No -Current Size (cm) - Length 15.5 -Current Size (cm) - Width 5.5 -Current Size (cm) - Depth 1.4 -Total Square Cm 85.25 -Photo Taken No -Epithelialization Small 1-33% -Tunneling No -Undermining/Tunneling No -Circular Undermining No -Exudate Amt Medium (34-66%) -Exudate Type Serosanguineous -Wound Margin Flat & Intact -Granulation Amt Medium (34-66%) -Granulation Quality Mellen -Slough/Fibrin No -Necrosis Amt Medium (34-66%) -Necrotic Tissue Type Adherent Slough -Structure Exposed N/A -Texture (Uma-wound Skin Appearance) Assessed Scarring -Moisture (Uma-wound Skin Appearance No Abnormality ) Assessed -Color (Uma-wound Skin Appearance) No Abnormality Assessed -Temperature (Uma-wound Skin No Abnormality Appearance) (Pt Warm) -Tenderness on Palpation (Uma-wound No Skin Appearance) -Ulcer Cleansing Rinsed/ Irrigated with Saline -Foul Odor after Cleansing No -Anesthetic Used 5% Lidocaine Gel [Edema Assessment] -Lower Limb Edema Present No - Nurse 2 - General Ulcer CM Notes Start: 06/07/17 14:50 Freq: Status: Active Protocol: Activity Type Activity Date Activity User E-Sign Co-Sign Detail Recorded Client Recorded Date Recorded By Document 06/07/17 15:22 TM [id number] 06/07/17 15:26 TM 06/07/17 15:22 Wound Center Nurse 2 [Procedure/Treatment] #8 post op lumbar ulcer -Time 15:22 -Correct Patient Yes -Correct Side, Site, Position Yes -Correct Procedure Yes -Procedure Performed Yes -Type of Procedure Debridement -Clinical Debridement Muscle -Post Debridement Size (cm) - Length 15.5 -Post Debridement Size (cm) - Width 5.5 -Post Debridement Size (cm) - Depth 1.1 -Total Square Cm 85.25 -Wound/Ulcer Outcome Not Healed -Ulcer Cleansing Rinsed/ Irrigated with Saline -Foul Odor after Cleansing No -Bioengineered Tissue No -Cetacaine Alcalde No -Topical Lidocaine (%) 5 -Bleeding Controlled with Pressure -Treatment Response Procedure Tolerated Well [See Physician Procedure note for Specifics] Pain Scale: 0-10 Numeric [Pain] -Is Patient Pain Free? Yes Psych/Mental Status: Normal Affect, Appropriate Debridement Note Post-Debridement Measurements/Treatment WC - Nurse 2 - General Ulcer CM Notes Start: 06/07/17 14:50 Freq: Status: Active Protocol: Activity Type Activity Date Activity User E-Sign Co-Sign Detail Recorded Client Recorded Date Recorded By Document 06/07/17 15:22 [id number] 06/07/17 15:26 06/07/17 15:22 Wound Center Nurse 2 #8 post op lumbar ulcer -Time 15:22 -Correct Patient Yes -Correct Side, Site, Position Yes -Correct Procedure Yes -Procedure Performed Yes -Type of Procedure Debridement -Clinical Debridement Muscle -Post Debridement Size (cm) - Length 15.5 -Post Debridement Size (cm) - Width 5.5 -Post Debridement Size (cm) - Depth 1.1 -Total Square Cm 85.25 -Wound/Ulcer Outcome Not Healed -Ulcer Cleansing Rinsed/ Irrigated with Saline -Foul Odor after Cleansing No -Bioengineered Tissue No -Cetacaine Alcalde No -Topical Lidocaine (%) 5 -Bleeding Controlled with Pressure -Treatment Response Procedure Tolerated Well Pain Scale: 0-10 Numeric Is Patient Pain Free? Yes Wound debrided: post-op lumbar ulcer Laterality: Not Applicable Type of Debridement: Excisional debridement Anesthesia Used: 4% Lidocaine Solution Depth: Down to and including healthy tissue, in the subcutaneous layer Percentage of wound debrided: 100 Instrument Used: 7mm curette Tissue Removed: yellow slough, devitalized tissue Severity: Fat Layer Exposed Amount of bleeding with debridement: Mild Bleeding Controlled with: Compression and gauze Patient tolerated procedure well Assessment/Plan Active Problems Nonhealing surgical wound (Chronic) Open wound of lower back (Chronic) with muscle and bone exposed s/p surgical debridement of abscess s/p lumbar spine surgery Assessment: chronic surgical wound dehiscence lumbar with complex abscess and recent surgical debridement. malnutrition. other multiple comorbidities. edema bilateral lower extremities. venous insufficiency. immunocompromised status. Plan: Marco As wound/ulcer was evaluated and debrided today. It is improved in size and in depth. The tissue appears healthy and without signs of infection currently. No odor is present. Will continue to use wet to dry dressings as prescribed by the surgeon. He will call if he has any redness or odor or increased drainage. F/U 2 weeks unless he has surgery.
== END 2017-07-03 23:59 ==
LOC: WC 09:28
PROVIDERS: Family Provider Family Medicine; PCP Family Medicine; Visit Provider Family Medicine
DX: T81.30XA Disruption of wound, unspecified, initial encounter (principal); R60.0 Localized edema; I87.2 Venous insufficiency (chronic) (peripheral)
CPT/HCPCS: 11043; 11046

== ENCOUNTER → 2017-06-17 10:59 | Outpatient (CLI) | payer MEDICARE, OTHER, SELFPAY ==
[2015-10-31 10:00] VITALS: BMI 34.9
[2017-06-17 11:41] LABS: Absolute Lymphocyte Count 0.91 X10^3/ul (0.83-4.51); Absolute Neutrophil Count 4.8 X10^3/uL (2.0-7.7); Basophil# 0.02 X10^3/uL; Basophil% 0.3 % (0-1); Eosinophil# 0.13 X10^3/uL; Eosinophils% 1.8 % (0-5); Hematocrit 32.5 % (40-54); Hemoglobin 10.3 g/dl (13.0-16.5); Lymphocyte # 0.91 X10^3/ul (4.0); Lymphocyte % 12.7 % (19-41); Mean Corp Hgb Conc 31.7 g/gl (32-36); Mean Corpuscular Volume 100.9 fL (80-94); Mean Platelet Vol. 9.2 fl (6.2-12.0); Monocyte# 1.32 X10^3/uL; Monocyte% 18.4 % (0-10); Neutrophil # 4.78 X10^3/uL (2.7-7.7); Neutrophil % 66.7 % (47-70); POSITIVE COUNT NO; POSITIVE DIFFERENTIAL NO; POSITIVE MORPHOLOGY NO; Platelet Count 283 K/mm3 (150-450); RBC Distribution Width CV 15.3 % (11.6-14.6); RBC Distribution Width SD 56.1 fl (35.1-43.9); Red Blood Count 3.22 M/mm3 (4.6-6.2); White Blood Count 7.2 K/mm3 (4.4-11.0)
[2017-06-17 11:58] LABS: Ferritin 95 ng/mL (26-388); Iron 57 ug/dL (65-175); Iron Binding Capacity,Total 252 ug/dL (250-450); PERCENT IRON SATURATION 22.6 % (15.0-55.0)
[2017-06-17 12:13] VITALS: BP 115/64; PULSE 71; RESP 18; TEMP 36.6; O2SAT 97; BMI 26.2
== END ==
PROVIDERS: Family Provider Family Medicine; PCP Family Medicine; Visit Provider Internal Medicine Nephrology
DX: N18.3 Chronic kidney disease, stage 3 (moderate) (principal); D63.1 Anemia in chronic kidney disease
CPT/HCPCS: 82728; 83540; 83550; 85025; 96372; J0885

== ENCOUNTER 2017-06-21 08:58 | Inpatient (IN) | payer MEDICARE, OTHER, SELFPAY ==
[2015-10-31 10:00] VITALS: BMI 34.9
[2017-06-21] VITALS (36 sets, daily range): BP systolic 107–133; BP diastolic 59–102; PULSE 99–186; RESP 15–33; TEMP 36.8–40.1; O2SAT 94–100; BMI 23.8; BMI 25.4; BMI 25.5
--- NOTE | 2017-06-21 09:01 | EKG12_ITS ---
Test Reason : ADENOSINE 12 MG Blood Pressure : / mmHG Vent. Rate : 129 BPM Atrial Rate : 129 BPM P-R Int : 170 ms QRS Dur : 130 ms QT Int : 320 ms P-R-T Axes : -16 -61 078 degrees QTc Int : 468 ms Atrial fibrillation Left axis deviation Right nonspecific intraventricular conduction delay Left anterior fascicular block Left ventricular hypertrophy Abnormal ECG Confirmed by SAMMIE HAYES, NICKY ([id number]), editor greeting card MENDEZ OSPINA ([id number]) on 06/24/2017 1:08:13 PM Referred By: Sera Haines Confirmed By:NICKY COCHRAN MD
--- NOTE | 2017-06-21 09:01 | RAD_ITS ---
STUDY: X-RAY CHEST REASON FOR EXAM: Male, 72 years old. Dyspnea. TECHNIQUE: Single AP portable view of the chest. COMPARISON: October 26, 2016 FINDINGS: Cardiac monitoring leads are present. There is mild elevation of the right hemidiaphragm. Left lung is expanded. There is mild prominence of bronchovascular markings. There is perihilar interstitial thickening and peribronchial cuffing. There is no demonstrated pleural abnormality. There is mild cardiac enlargement. Normal mediastinum and raquel. Normal visualized pulmonary arteries. There is atherosclerotic calcification of the aortic arch with tortuosity. There are diffuse degenerative changes of the visualized thoracic spine. Normal visualized ribs, clavicles, and shoulders. There is no demonstrated abnormality of the visualized soft tissue structures of the upper abdomen. RAD/Chest 1 View (Portable) IMPRESSION: 1. Increasing pulmonary congestion. 2. Mild cardiomegaly. Electronically Signed: Kalie Sanabria MD at 9:37 EST , Service support ,
[2017-06-21] MEDS: Adenosine 6 MG/2 ML Syringe IV (09:05)
--- NOTE | 2017-06-21 09:07 | EKG12_ITS ---
Test Reason : RYTHM CHANGE Blood Pressure : / mmHG Vent. Rate : 116 BPM Atrial Rate : 116 BPM P-R Int : 184 ms QRS Dur : 130 ms QT Int : 314 ms P-R-T Axes : 030 -57 063 degrees QTc Int : 436 ms Sinus tachycardia with Premature atrial complexes Right bundle branch block Left anterior fascicular block Bifascicular block Left ventricular hypertrophy Abnormal ECG Confirmed by SAMMIE HAYES, NICKY ([id number]), editor producer MENDEZ OSPINA ([id number]) on 06/24/2017 1:08:38 PM Referred By: Sera Haines Confirmed By:NICKY COCHRAN MD
--- NOTE | 2017-06-21 09:10 | CT_ITS ---
STUDY: CT BRAIN WITHOUT CONTRAST REASON FOR EXAM: Male, 72 years old. Headache. RADIATION DOSAGE (If Supplied By Facility): CTDIvol = ( 44.99 ) mGy, DLP = ( 762.36 ) mGycm TECHNIQUE: Transaxial CT imaging of the brain was performed without administration of intravenous contrast material. Multiplanar reformations are submitted for interpretation. Individualized dose optimization techniques were used for this CT. COMPARISON: CT of the head dated October 14, 2016. FINDINGS: Normal soft tissue structures. Normal calvarium. There is mild cerebral atrophy with widening of the extra-axial spaces and ventricular dilatation. There are areas of decreased attenuation within the white matter tracts of the supratentorial brain, consistent with microvascular disease changes. Small lucency visible in the right thalamus is probably related to old infarct. This appears new however since the previous CT. Normal brainstem. There is mild cerebellar atrophy. There is no intracranial hemorrhage. There is moderate atherosclerotic calcification of intracranial arteries. Appears to be some bubbly fluid in the posterior left-sided ethmoid sinus. The paranasal sinuses appear to be clear otherwise. CT/Brain/Head without Contrast IMPRESSION: 1. Chronic involutional changes of the brain. 2. 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 3. No CT evidence of acute intracranial hemorrhage. 4. Possible acute left ethmoid sinus disease. Electronically Signed: Kalie Sanabria MD at 10:30 EST , Service support ,
[2017-06-21] MEDS: Adenosine 6 MG/2 ML Syringe 12 MG IV (09:12)
[2017-06-21 09:13] LABS: Absolute Lymphocyte Count 0.87 X10^3/ul (0.83-4.51); Absolute Neutrophil Count 14.2 X10^3/uL (2.0-7.7); Basophil# 0.01 X10^3/uL; Basophil% 0.1 % (0-1); Hematocrit 38.7 % (40-54); Hemoglobin 12.9 g/dl (13.0-16.5); Lymphocyte # 0.87 X10^3/ul (4.0); Lymphocyte % 5.5 % (19-41); Mean Corp Hgb Conc 33.3 g/gl (32-36); Mean Corpuscular Hgb 32.8 pg (27.0-32.0); Mean Corpuscular Volume 98.5 fL (80-94); Monocyte# 0.75 X10^3/uL; Monocyte% 4.7 % (0-10); Neutrophil # 14.15 X10^3/uL (2.7-7.7); Neutrophil % 89.4 % (47-70); Platelet Count 286 K/mm3 (150-450); RBC Distribution Width CV 15.6 % (11.6-14.6); RBC Distribution Width SD 56.2 fl (35.1-43.9); Red Blood Count 3.93 M/mm3 (4.6-6.2); White Blood Count 15.8 K/mm3 (4.4-11.0)
[2017-06-21 09:18] LABS: POSITIVE COUNT NO; POSITIVE DIFFERENTIAL NO; POSITIVE MORPHOLOGY NO
[2017-06-21 09:33] LABS: Anion Gap 13 (5-15); BUN 67 mg/dL (7-18); Calcium,Total 9.5 mg/dL (8.5-10.1); Chloride 99 mmol/L (98-107); Creatinine, Serum 2.16 mg/dL (0.70-1.30); EST Glomerular Filtration Rate 32 mL/min (>60); Est Glom Filt Rate - Afr Amer 39 mL/min (>60); Estimated Creatinine Clearance 33.43 ml/min; Glucose 143 mg/dL (74-106); Potassium 4.4 mmol/L (3.5-5.1); Sodium Level 133 mmol/L (136-145)
[2017-06-21] MEDS: Etomidate 20 MG/10 ML Vial IV (09:35)
--- NOTE | 2017-06-21 09:39 | EKG12_ITS ---
Test Reason : ADENOSINE 6MG Blood Pressure : / mmHG Vent. Rate : 130 BPM Atrial Rate : 130 BPM P-R Int : 168 ms QRS Dur : 134 ms QT Int : 330 ms P-R-T Axes : 006 -57 081 degrees QTc Int : 485 ms Sinus tachycardia with Premature atrial complexes Right bundle branch block Left anterior fascicular block Bifascicular block Left ventricular hypertrophy with repolarization abnormality Abnormal ECG Confirmed by NOEMY COE ([id number]), editor newspaper MENDEZ OSPINA ([id number]) on 06/27/2017 2:24:23 PM Referred By: Sera Haines Confirmed By:NOEMY COE
[2017-06-21 09:41] LABS: Allen Test POS; Base Excess -4 mmol/L (-2 to +2); Bicarbonate 19.1 mmol/L (22-26); Blood Gas Specimen Type ART; O2 Delivery Device Nasal Can; PO2 82 mmHG (75-100); SITE R Radial; SO2 97 % (95-99); Time Given 933; Total Carbon Dioxide 20 mmol/L; pCO2 24.1 mmHg (35-45); pH 7.51 (7.35-7.45)
--- NOTE | 2017-06-21 09:57 | ED.VISSUMM ---
- ER Visit Summary Date of Service: 06/21/17 Chief Complaint: Not doing well per paramedics, patient and History of Present Illness: The patient is a 72 M who has altered level of consciousness and is not a good informant secondary to acuity/serious of illness. Patient is not alert and he is not oriented to day or month. Only complaint is bad headache. The facial droop according to is new. Patient denies any cardiac respiratory symptoms in spite of a heart rate of 190 and breathing 40 times a minute. He does not appear well. Capillary refill is normal; however, he has acrocyanosis of his upper and lower digits. History is very limited other than not doing well. According to brother he has not done well since back surgery 3 years ago. View of old records he has history of hypercholesterolemia, lymphedema, paroxysmal A. fib, lymphoma, renal insufficiency, peripheral vascular disease and back wound. Dr. Mauro 2 determine when last echocardiogram was done and discussed patient's case. Last echo was July 05, 2015. EF at that time was 55%. He did have one episode of atrial fibrillation in the past. He is on Eliquis. informed that he has not taken his last [address] Mauro was made aware that he had transient break in his intranodal tachycardia with 6 and 12 of adenosine. Discussed options of cardioversion versus medication. It was decided to cardiovert the patient. Physical Examination: Arrives altered level of conscious not appearing well with tachycardia and tachypnea. Capillary refill is normal. He does have acrocyanosis of all digits upper and lower extremity. Pupils are equal round reactive. Extra muscle intact. There is no icterus of the sclera. Mouth appears dry. Trach is midline. Question of JVD at 45?. Rales were noted bilaterally. Heart is rapid and regular. Abdomen is prominent multiple well-healed scars. Bowel sounds are diminished. Lower extremities reveal edema. DP and PT pulses are not palpable. He does have palpable radial pulses. He moves all extremities. Sensation appears intact. There is no clonus or Babinski sign noted. Test Results: EKG #1 reveals an infranodal tachycardia. Question wide complex versus narrow complex. There are ischemic changes noted which in my professional opinion are secondary to his rates. EKG #2 was obtained after 12 mg adenosine which revealed a sinus tachycardia with a rate of 129 and a left axis and LVH with repolarization changes. EKG #3 reveals a sinus tachycardia rate of 116 with PACs and evidence of a right bundle branch block, left anterior fascicular block and a first-degree block. Portable chest x-ray reveals borderline cardiomegaly which in my opinion is secondary to the fact that this is a portable film. There is evidence of CHF. Troponins elevated at 0.26. Lactate elevated 3.0. White count elevated 15.8 thousand with 89 segs. H&H 12.9 and 38.6. BMP is remarkable glucose 143 BUN of 67 and creatinine of 2.16. Last creatinine was 1.65. Emergency Department Course and Treatment: EKG was obtained which reveals and infranodal tachycardiac question narrow complex versus widened complex. There is ST-T wave changes, which in my professional opinion is rate dependent. Old EKG was obtained and he had an intraventricular conduction delay on prior EKG. Patient received 6 mg of adenosine once IV was established. He had transient break in his intranodal tachycardia. Since there was a transient break he was then given 12 mg. He converted to a sinus tachycardia for several minutes. He went back into a rapid complex rhythm. As previously documented Dr. Mauro was contacted and discussed cardioversion versus medication. Patient was consented for procedural sedation for cardioversion. was explained risk benefits. She was informed that I did discuss this with Dr. Mauro and in our opinion this was his best option since his chest x-ray revealed heart failure. She was explained all the risk benefits that I have seen and the most common problems. She was given opportunity ask questions. None were asked. She did sign consent form for her since he is not capable. Patient received total of 8 mg of etomidate. He was successfully cardioverted using 150 J. Total procedure time for sedation 5 minutes I was informed at 1005 that patient is in here At rhythm again with a rate of 180+. Therefore, will bolus with Cardizem and start on drip. Since patient is clinically fluid overloaded and has CHF on x-ray will treat with Lasix for diuresis. Appropriate blood work was obtained to rule out cardiac ischemia and a lactate was obtained to confirm suspicion for peripheral fusion. Treatment Plan: Will require admission to ICU with further monitoring and testing. Dr. Regan requested hospitalist to be notified. He informed me that Dr. iverson-is covering since he is in the office until noon and then will not be available. Procedures: 1. Procedural sedation (5 minutes) 2. Synchronized cardioversion 150 J 3. Critical care time 54 minutes Disposition: Admit ICU Impression: 1. Intranodal tachycardia 2. CHF 3. Elevated troponin 4. Lactic acidosis secondary to poor perfusion 5. Acute on chronic renal insufficiency 6. Hyperglycemia 7. Severe headache with new facial droop left side 8. Significant pulmonary disease with pulmonary hypertension This note was generated with [employer] dictation software. It may contain incorrect words, spelling, and punctuation that were not noted in review of the chart prior to signing ED Disposition - Plan for ED Patient: Chief Complaint: Palpitations Referrals: Bernardo Lawson DO [Primary Care Provider] -
[2017-06-21] MEDS: dilTIAZem 25 MG/5 ML Vial 20 MG IV BOLUS (10:12)
[2017-06-21] MEDS: Enoxaparin 100 MG/ML Syringe 80 MG SC (10:28)
[2017-06-21] MEDS: Furosemide 40 MG/4 ML Vial IV (10:28)
[2017-06-21 10:40] LABS: BNP,B-Type NATRIURETIC PEPTIDE > 5000.0 pg/mL (0-100)
[2017-06-21] MEDS: dilTIAZem 25 MG/5 ML Vial IV BOLUS (11:48)
--- NOTE | 2017-06-21 12:09 | PCM.HP.STD ---
Problem List (1) Open wound of lower back Status: Chronic Comment: with muscle and bone exposed s/p surgical debridement of abscess s/p lumbar spine surgery (2) Nonhealing surgical wound Status: Chronic Qualifiers: (3) Chronic ulcer of right leg with fat layer exposed Status: Chronic (4) Lumbar disc disease Status: Chronic (5) Edema of both legs Status: Chronic (6) Leg swelling Status: Chronic (7) History of diverticulitis Status: Chronic (8) Hyperlipidemia Status: Chronic (9) Back pain at L4-L5 level Status: Chronic (10) History of non-Hodgkin's lymphoma Status: Chronic (11) Hypertension Status: Chronic (12) Shortness of breath Status: Chronic (13) Hypoxia Status: Chronic (14) History of atrial fibrillation Status: Chronic (15) Hemorrhage of tongue Status: Acute (16) Surgical wound dehiscence Status: Chronic (17) Renal insufficiency Status: Chronic (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 (19) Ulcer of left heel and midfoot with fat layer exposed Status: Chronic (20) Decubitus ulcer, heel, right, unstageable Status: Chronic (21) Peripheral vascular disease Status: Chronic (22) Edema, lower extremity Status: Chronic (23) Malnutrition Status: Chronic Qualifiers: (24) Pressure ulcer, back, lower Status: Chronic (25) Ulcer of right foot with fat layer exposed Status: Chronic (26) Decubitus ulcer of right foot, unstageable Status: Chronic (27) Peripheral vascular disease Status: Chronic (28) Venous insufficiency Status: Suspected (29) Ulcer of right lower extremity with fat layer exposed Status: Chronic (30) Tinea unguium Status: Chronic (31) Confusion Status: Acute (32) Generalized weakness Status: Acute (33) Acute kidney injury superimposed on chronic kidney disease Status: Acute (34) Altered mental status, unspecified Status: Acute (35) Severe sepsis Status: Acute (36) wound sepsis of previous wound Status: Acute History of Present Illness Date of Admission: 06/21/17 Chief Complaint: Generalized weakness: Not feeling well since Saturday The patient is a 72 year old M with multiple comorbidities as listed above was sent to ER by home health nurse when patient was not feeling well and generalized systemic complaints of headache, thirsty, low urine output and altered mental status. The EMS EKG shows PSVT at 1 85 bpm, RBBB, LAFB with left axis deviation. In the ER, he was found to have PSVT with heart rate 1 90/min, respiratory rate 40/min. The patient had adenosine 6 mg and then 12 mg IV patient distal sinus tachycardia and then again PSVT and finally was given DC cardioversion 150 under etomidate sedation. Last EKG shows normal sinus rhythm at 73 bpm with QRS duration 136 ms. Patient has history of paroxysmal A. fib and on Eliquis. Chest x-ray shows peribronchial cuffing and mild hilar congestion but overall I feel patient is dehydrated with low urine output. As per the patient and his he has having low urine output, dark yellow in color for last 3-4 days and patient is thirsty.. Patient was given Lasix 40 mg IV in the ER. Started on IV Cardizem drip. Besides that he has large sacral decubitus ulcer covered with slough and has low-grade fever WITH chills at home. He was recommended by wound center, [facility] where he follows for antibiotic. Preliminary blood work shows lactic acid 3.0, creatinine 2.16, BUN 67 again suggestive of dehydration with prerenal azotemia and severe sepsis. Patient has leukocytosis with left shift. ABG done in ER shows 7.51/24/82 on 2 L of oxygen suggestive of respiratory alkalosis most probably from tachypnea. Patient is admitted in ICU. [] Past Medical History Past Medical History (Chronic Problems): Chronic Problems Open wound of lower back (Chronic) with muscle and bone exposed s/p surgical debridement of abscess s/p lumbar spine surgery Nonhealing surgical wound (Chronic) Chronic ulcer of right leg with fat layer exposed (Chronic) Lumbar disc disease (Chronic) Edema of both legs (Chronic) Leg swelling (Chronic) History of diverticulitis (Chronic) Hyperlipidemia (Chronic) Back pain at L4-L5 level (Chronic) History of non-Hodgkin's lymphoma (Chronic) Hypertension (Chronic) Shortness of breath (Chronic) Hypoxia (Chronic) History of atrial fibrillation (Chronic) Surgical wound dehiscence (Chronic) Renal insufficiency (Chronic) Soft tissue radionecrosis (Chronic) Ulcer of left heel and midfoot with fat layer exposed (Chronic) Decubitus ulcer, heel, right, unstageable (Chronic) Peripheral vascular disease (Chronic) Edema, lower extremity (Chronic) Malnutrition (Chronic) Pressure ulcer, back, lower (Chronic) Ulcer of right foot with fat layer exposed (Chronic) Decubitus ulcer of right foot, unstageable (Chronic) Peripheral vascular disease (Chronic) Ulcer of right lower extremity with fat layer exposed (Chronic) Tinea unguium (Chronic) Allergies sulfamethoxazole [From Bactrim] Allergy (Verified 06/21/17 08:58) Other trimethoprim [From Bactrim] Allergy (Verified 06/21/17 08:58) Other prednisone Adverse Reaction (Verified 06/21/17 08:58) Swelling Home Medications: Ambulatory Orders Medication Instructions Recorded Ferrous Gluconate 240 mg PO BID 02/05/16 Folic Acid 1 mg PO QHS 02/05/16 Magnesium Oxide [Magnesium] 400 mg PO DAILY 02/05/16 Metoprolol Tartrate [Lopressor 12.5 mg PO BID 02/05/16 (beta cyndi)] Apixaban [Eliquis] 2.5 mg PO BID 03/16/16 Cholecalciferol (Vitamin D3) 1,000 unit PO QHS 10/14/16 [Vitamin D3] Gabapentin [Neurontin] 100 mg PO BIDCM #60 capsule 10/25/16 Oxycodone [Oxyir] 30 mg PO DAILY 02/13/17 atorvastatin 20 mg tablet 20 mg PO QDAY #90 tab 05/16/17 Vit C/E/Zn/Coppr/Lutein/Zeaxan 2 each PO DAILY 06/21/17 [Preservision Areds 2 Softgel] Surgical History: - - The patient underwent partial colectomy for diverticulitis and splenectomy in 2002. Several months later, and ileostomy, which had been performed at the time of the initial surgery, was reversed. Lumbar L4-[address] Swan at the [facility] on November 02, 2015. Smoking Status: Former smoker - *Family History Maternal History Items: Heart Disease Paternal History Items: Diabetes Review of Systems Constitutional: Reports: Anorexia, Chills, Fever HEENT: Denies: Head Aches, Sinus Congestion, Sinus Drainage Cardiovascular: Denies: Chest Pain, Palpitations Respiratory: Reports: Shortness of Breath, Shortness of breath at rest. Denies: Cough, Sputum production Gastrointestinal: Denies: Abdominal Pain, Nausea, Vomiting Genitourinary: Denies: Dysuria Musculoskeletal: Reports: Joint Pain. Denies: Joint Tenderness Skin: Reports: Skin Changes, Wounds. Denies: Rash Neurological: Reports: Balance problems. Denies: Focal weakness, Numbness, Tingling Psychiatric: Denies: Anxiety, Depression, Homicidal Ideations, Suicidal Ideations Hematologic/ Lymphatic: Denies: Easy Bruising, Easy Bleeding VTE Information - Inpt Only VTE Present on Admission: No VTE Mechan Device Prophylaxis: SCD's VTE Pharm Prophylaxis ordered?: Yes Patient Problems: Active and Suspected Problems Altered mental status, unspecified (Acute) A-fib (Acute) Sepsis (Acute) Severe sepsis (Acute) wound sepsis of previous wound (Acute) - Physical Exam General: Cooperative, Confused, Disoriented, Lethargic HEENT: Atraumatic, PERRLA, EOMI, Normocephalic Oral: Dry Mucosa Neck: Supple, No JVD, Negative Carotid Bruits Lungs: Diminished - In right lung base mainly due to right hemidiaphragm elevation, Short of Breath Cardiovascular: Regular rate, Regular Rhythm, Normal S1, Normal S2, No murmurs Abdomen: Bowel Sounds Present, Soft, Non Tender, Non-Distended Extremities: No edema, Capillary Refill Less than 3 Seconds Skin: No rashes, Ulcer/ Wound - Large deep sacral decubitus with floor covered with slough in sacral region about 15 cm, most probably stage IV Musculoskeletal: No Tenderness to Palpation of Joints or Extremities, Arthritic Changes, Muscle Wasting Neurological: Cranial nerves II-XII grossly intact Psych/Mental Status: Normal Affect, Appropriate Vital Signs Temp Pulse Resp BP Pulse Ox 98.3 F 114 H 26 H 117/89 H 97 06/21/17 08:59 06/21/17 10:52 06/21/17 10:52 06/21/17 10:52 06/21/17 10:52 Assessment/Plan Active and Suspected Problems Altered mental status, unspecified (Acute) A-fib (Acute) Sepsis (Acute) Severe sepsis (Acute) wound sepsis of previous wound (Acute) The patient is a 72 year old M with multiple comorbidities as listed above was sent to ER by home health nurse when patient was not feeling well and generalized systemic complaints of headache, thirsty, low urine output and altered mental status. The EMS EKG shows PSVT at 1 85 bpm, RBBB, LAFB with left axis deviation. In the ER, he was found to have PSVT with heart rate 1 90/min, respiratory rate 40/min. The patient had adenosine 6 mg and then 12 mg IV patient distal sinus tachycardia and then again PSVT and finally was given DC cardioversion 150 under etomidate sedation. Last EKG shows normal sinus rhythm at 73 bpm with QRS duration 136 ms. Patient has history of paroxysmal A. fib and on Eliquis. Chest x-ray shows peribronchial cuffing and mild hilar congestion but overall I feel patient is dehydrated with low urine output. As per the patient and his he has having low urine output, dark yellow in color for last 3-4 days and patient is thirsty.. Patient was given Lasix 40 mg IV in the ER. Started on IV Cardizem drip. Besides that he has large sacral decubitus ulcer covered with slough and has low-grade fever WITH chills at home. He was recommended by wound center, [facility] where he follows for antibiotic. Preliminary blood work shows lactic acid 3.0, creatinine 2.16, BUN 67 again suggestive of dehydration with prerenal azotemia. Patient has leukocytosis with left shift. ABG done in ER shows 7.51/24/82 on 2 L of oxygen suggestive of respiratory alkalosis most probably from tachypnea. Patient is admitted in ICU. 1. Narrow complex tachycardia, PSVT converted to normal sinus rhythm: Baseline arrhythmia of paroxysmal A. fib on Eliquis. Currently, normal sinus rhythm. Patient received Lovenox 1 mg/kg body weight 1 dose in ER. Continue Eliquis 2.5 mg twice daily. On IV Cardizem drip tapered down. On metoprolol, increased to 25 mg twice daily. Repeat 2D echo. Property Custodian consulted. Textile Conversion Manager consulted. Cycle cardiac enzymes. Chronic diastolic heart failure: Patient had last echo in July 2015 and reported as EF 55% with moderate to stage II diastolic dysfunction. No regional wall motion abnormalities. Left atrium mildly enlarged. Normal right atrium. Mildly dilated right ventricle with mild global right ventricular systolic dysfunction. Mild TR, RVSP 38 mmHg. Mild diffuse aortic valve calcification, aortic sclerosis but no stenosis. 2. Acute encephalopathy probably has baseline mild cognitive impairment/dementia with generalized weakness: Most rarely patient has acute encephalopathy due to metabolic encephalopathy/infectious encephalopathy. IV fluid normal saline. Treat the underlying cause. 3. Severe sepsis (Fever, tachycardia, tachypnea) and lactic acidosis most probably from wound sepsis due to large sacral wound covered with slough, from previous surgery present on admission chronic in nature, probably stage IV: Wound care nurse and plastic surgeon consulted. Started on IV Zosyn. Needs wound debridement. Nutritional support. 4. Acute kidney injury on CKD stage III, multiple etiology including prerenal/ATN from sepsis: Patient baseline creatinine varies from 1.58-1.81. Last creatinine 1.May 1.64. Currently 2.16. Major strict input and output. Consult [facility]. 5. Severe protein calorie malnutrition: As per the patient's , his body weight was 225 pound last summer, 2016 currently 175. Lost about 50 pounds in last 7-8 months. Pre-albumin, CRP ordered. Patient is consulted. Low albumin 1.6 in October 2016. 6. Diabetes mellitus type 2 with uncontrolled hyperglycemia: Patient glucose is 143. To check before meals and at bedtime cover with NovoLog sliding scale. A1c tomorrow a.m. 7. Multiple comorbidities including chronic diastolic heart failure, lumbar disc disease, chronic venous insufficiency, peripheral vascular disease, history of decubitus ulcer of right foot in the past, dyslipidemia, history of diverticulitis: Multiple comorbidities complicates the present care. Guarded prognosis. Advanced directive: Discussed with the patient . Patient does not have living will/advanced directive. Patient and at great they do not want artificial life support/CPR in irreversible stage. Needs further discussion with the palliative care to help with further details of nutritional support. Total time 17 minutes spent in discussion regarding details of advanced directive including vasopressor, central line, feeding support. Second time, this was again discussed with the patient and his brother and they want full code for now. Clinical Impression(s) from Imaging Studies Chest X-Ray 06/21/17 09:01 IMPRESSION: 1. Increasing pulmonary congestion. 2. Mild cardiomegaly. Electronically Signed: Kalie Sanabria MD at 9:37 EST , Service support , Brain CT 06/21/17 09:10 IMPRESSION: 1. Chronic involutional changes of the brain. 2. 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 3. No CT evidence of acute intracranial hemorrhage. 4. Possible acute left ethmoid sinus disease. Laboratory Results 06/21/17 09:05: WBC 15.8 H, RBC 3.93 L, Hgb 12.9 L, Hct 38.7 L, MCV 98.5 H, MCH 32.8 H, MCHC 33.3, RDW 15.6 H, RDW Differential 56.2 H, Plt Count 286, MPV 10.0, Immature Gran % (Auto) 0.300, Neut % (Auto) 89.4 H, Lymph % (Auto) 5.5 L, [place] % (Auto) 4.7, Eos % (Auto) 0.0, Baso % (Auto) 0.1, Absolute Neuts (auto) 14.2 H, Absolute Lymphs (auto) 0.87, Total Counted Not Reportable 06/21/17 09:05: Sodium 133 L, Potassium 4.4, Chloride 99, Carbon Dioxide 21.0, Anion Gap 13, BUN 67 H, Creatinine 2.16 H, Estim Creat Clear Calc 33.43, Est GFR (MDRD) Af Amer 39 L, Est GFR (MDRD) Non-Af 32 L, BUN/Creatinine Ratio 31.0 H, Glucose 143 H, Calcium 9.5, Troponin I 0.26 H 06/21/17 09:05: B-Natriuretic Peptide > 5000.0 H 06/21/17 09:13: Lactic Acid 3.0 H 06/21/17 09:38: Specimen Type ART, Sample Site R Radial, pH 7.51 H, Bicarbonate Actual 19.1 L, POC Total CO2 20, Base Excess -4 L, O2 Saturation 97, ABG pCO2 24.1 L, ABG pO2 82, Arturo Test POS, O2 Delivery Device Nasal Can, Liter Flow 2.0, Blood Gas Notified Whom ED MD, Blood Gas Notified Time 933 Code Visit Inpatient E&M: 72915 Init Hosp L3 Procedures: 58953 Advncd Care Plan 30 Min
--- NOTE | 2017-06-21 12:21 | HP.PCM_ITS ---
Problem List (1) Open wound of lower back Status: Chronic Comment: with muscle and bone exposed s/p surgical debridement of abscess s/p lumbar spine surgery (2) Nonhealing surgical wound Status: Chronic Qualifiers: (3) Chronic ulcer of right leg with fat layer exposed Status: Chronic (4) Lumbar disc disease Status: Chronic (5) Edema of both legs Status: Chronic (6) Leg swelling Status: Chronic (7) History of diverticulitis Status: Chronic (8) Hyperlipidemia Status: Chronic (9) Back pain at L4-L5 level Status: Chronic (10) History of non-Hodgkin's lymphoma Status: Chronic (11) Hypertension Status: Chronic (12) Shortness of breath Status: Chronic (13) Hypoxia Status: Chronic (14) History of atrial fibrillation Status: Chronic (15) Hemorrhage of tongue Status: Acute (16) Surgical wound dehiscence Status: Chronic (17) Renal insufficiency Status: Chronic (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 (19) Ulcer of left heel and midfoot with fat layer exposed Status: Chronic (20) Decubitus ulcer, heel, right, unstageable Status: Chronic (21) Peripheral vascular disease Status: Chronic (22) Edema, lower extremity Status: Chronic (23) Malnutrition Status: Chronic Qualifiers: (24) Pressure ulcer, back, lower Status: Chronic (25) Ulcer of right foot with fat layer exposed Status: Chronic (26) Decubitus ulcer of right foot, unstageable Status: Chronic (27) Peripheral vascular disease Status: Chronic (28) Venous insufficiency Status: Suspected (29) Ulcer of right lower extremity with fat layer exposed Status: Chronic (30) Tinea unguium Status: Chronic (31) Confusion Status: Acute (32) Generalized weakness Status: Acute (33) Acute kidney injury superimposed on chronic kidney disease Status: Acute (34) Altered mental status, unspecified Status: Acute (35) Severe sepsis Status: Acute (36) wound sepsis of previous wound Status: Acute History of Present Illness Date of Admission: 06/21/17 Chief Complaint: Generalized weakness: Not feeling well since Saturday The patient is a 72 year old M with multiple comorbidities as listed above was sent to ER by home health nurse when patient was not feeling well and generalized systemic complaints of headache, thirsty, low urine output and altered mental status. The EMS EKG shows PSVT at 1 85 bpm, RBBB, LAFB with left axis deviation. In the ER, he was found to have PSVT with heart rate 1 90/min, respiratory rate 40/ min. The patient had adenosine 6 mg and then 12 mg IV patient distal sinus tachycardia and then again PSVT and finally was given DC cardioversion 150 under etomidate sedation. Last EKG shows normal sinus rhythm at 73 bpm with QRS duration 136 ms. Patient has history of paroxysmal A. fib and on Eliquis. Chest x-ray shows peribronchial cuffing and mild hilar congestion but overall I feel patient is dehydrated with low urine output. As per the patient and his he has having low urine output, dark yellow in color for last 3-4 days and patient is thirsty.. Patient was given Lasix 40 mg IV in the ER. Started on IV Cardizem drip. Besides that he has large sacral decubitus ulcer covered with slough and has low -grade fever WITH chills at home. He was recommended by wound center, [facility] where he follows for antibiotic. Preliminary blood work shows lactic acid 3.0, creatinine 2.16, BUN 67 again suggestive of dehydration with prerenal azotemia and severe sepsis. Patient has leukocytosis with left shift. ABG done in ER shows 7.51/24/82 on 2 L of oxygen suggestive of respiratory alkalosis most probably from tachypnea. Patient is admitted in ICU. [] Past Medical History Past Medical History (Chronic Problems): Chronic Problems Open wound of lower back (Chronic) with muscle and bone exposed s/p surgical debridement of abscess s/p lumbar spine surgery Nonhealing surgical wound (Chronic) Chronic ulcer of right leg with fat layer exposed (Chronic) Lumbar disc disease (Chronic) Edema of both legs (Chronic) Leg swelling (Chronic) History of diverticulitis (Chronic) Hyperlipidemia (Chronic) Back pain at L4-L5 level (Chronic) History of non-Hodgkin's lymphoma (Chronic) Hypertension (Chronic) Shortness of breath (Chronic) Hypoxia (Chronic) History of atrial fibrillation (Chronic) Surgical wound dehiscence (Chronic) Renal insufficiency (Chronic) Soft tissue radionecrosis (Chronic) Ulcer of left heel and midfoot with fat layer exposed (Chronic) Decubitus ulcer, heel, right, unstageable (Chronic) Peripheral vascular disease (Chronic) Edema, lower extremity (Chronic) Malnutrition (Chronic) Pressure ulcer, back, lower (Chronic) Ulcer of right foot with fat layer exposed (Chronic) Decubitus ulcer of right foot, unstageable (Chronic) Peripheral vascular disease (Chronic) Ulcer of right lower extremity with fat layer exposed (Chronic) Tinea unguium (Chronic) Allergies sulfamethoxazole [From Bactrim] Allergy (Verified 06/21/17 08:58) Other trimethoprim [From Bactrim] Allergy (Verified 06/21/17 08:58) Other prednisone Adverse Reaction (Verified 06/21/17 08:58) Swelling Home Medications: Ambulatory Orders Medication Instructions Recorded Ferrous Gluconate 240 mg PO BID 02/05/16 Folic Acid 1 mg PO QHS 02/05/16 Magnesium Oxide [Magnesium] 400 mg PO DAILY 02/05/16 Metoprolol Tartrate [Lopressor 12.5 mg PO BID 02/05/16 (beta cyndi)] Apixaban [Eliquis] 2.5 mg PO BID 03/16/16 Cholecalciferol (Vitamin D3) 1,000 unit PO QHS 10/14/16 [Vitamin D3] Gabapentin [Neurontin] 100 mg PO BIDCM #60 capsule 10/25/16 Oxycodone [Oxyir] 30 mg PO DAILY 02/13/17 atorvastatin 20 mg tablet 20 mg PO QDAY #90 tab 05/16/17 Vit C/E/Zn/Coppr/Lutein/Zeaxan 2 each PO DAILY 06/21/17 [Preservision Areds 2 Softgel] Surgical History: - - The patient underwent partial colectomy for diverticulitis and splenectomy in 2002. Several months later, and ileostomy, which had been performed at the time of the initial surgery, was reversed. Lumbar L4-[address] Swan at the [facility] on November 02, 2015. Smoking Status: Former smoker - *Family History Maternal History Items: Heart Disease Paternal History Items: Diabetes Review of Systems Constitutional: Reports: Anorexia, Chills, Fever HEENT: Denies: Head Aches, Sinus Congestion, Sinus Drainage Cardiovascular: Denies: Chest Pain, Palpitations Respiratory: Reports: Shortness of Breath, Shortness of breath at rest. Denies : Cough, Sputum production Gastrointestinal: Denies: Abdominal Pain, Nausea, Vomiting Genitourinary: Denies: Dysuria Musculoskeletal: Reports: Joint Pain. Denies: Joint Tenderness Skin: Reports: Skin Changes, Wounds. Denies: Rash Neurological: Reports: Balance problems. Denies: Focal weakness, Numbness, Tingling Psychiatric: Denies: Anxiety, Depression, Homicidal Ideations, Suicidal Ideations Hematologic/ Lymphatic: Denies: Easy Bruising, Easy Bleeding VTE Information - Inpt Only VTE Present on Admission: No VTE Mechan Device Prophylaxis: SCD's VTE Pharm Prophylaxis ordered?: Yes Patient Problems: Active and Suspected Problems Altered mental status, unspecified (Acute) A-fib (Acute) Sepsis (Acute) Severe sepsis (Acute) wound sepsis of previous wound (Acute) - Physical Exam General: Cooperative, Confused, Disoriented, Lethargic HEENT: Atraumatic, PERRLA, EOMI, Normocephalic Oral: Dry Mucosa Neck: Supple, No JVD, Negative Carotid Bruits Lungs: Diminished - In right lung base mainly due to right hemidiaphragm elevation, Short of Breath Cardiovascular: Regular rate, Regular Rhythm, Normal S1, Normal S2, No murmurs Abdomen: Bowel Sounds Present, Soft, Non Tender, Non-Distended Extremities: No edema, Capillary Refill Less than 3 Seconds Skin: No rashes, Ulcer/ Wound - Large deep sacral decubitus with floor covered with slough in sacral region about 15 cm, most probably stage IV Musculoskeletal: No Tenderness to Palpation of Joints or Extremities, Arthritic Changes, Muscle Wasting Neurological: Cranial nerves II-XII grossly intact Psych/Mental Status: Normal Affect, Appropriate Vital Signs Temp Pulse Resp BP Pulse Ox 98.3 F 114 H 26 H 117/89 H 97 06/21/17 08:59 06/21/17 10:52 06/21/17 10:52 06/21/17 10:52 06/21/17 10:52 Assessment/Plan Active and Suspected Problems Altered mental status, unspecified (Acute) A-fib (Acute) Sepsis (Acute) Severe sepsis (Acute) wound sepsis of previous wound (Acute) The patient is a 72 year old M with multiple comorbidities as listed above was sent to ER by home health nurse when patient was not feeling well and generalized systemic complaints of headache, thirsty, low urine output and altered mental status. The EMS EKG shows PSVT at 1 85 bpm, RBBB, LAFB with left axis deviation. In the ER, he was found to have PSVT with heart rate 1 90/min, respiratory rate 40/ min. The patient had adenosine 6 mg and then 12 mg IV patient distal sinus tachycardia and then again PSVT and finally was given DC cardioversion 150 under etomidate sedation. Last EKG shows normal sinus rhythm at 73 bpm with QRS duration 136 ms. Patient has history of paroxysmal A. fib and on Eliquis. Chest x-ray shows peribronchial cuffing and mild hilar congestion but overall I feel patient is dehydrated with low urine output. As per the patient and his he has having low urine output, dark yellow in color for last 3-4 days and patient is thirsty.. Patient was given Lasix 40 mg IV in the ER. Started on IV Cardizem drip. Besides that he has large sacral decubitus ulcer covered with slough and has low -grade fever WITH chills at home. He was recommended by wound center, [facility] where he follows for antibiotic. Preliminary blood work shows lactic acid 3.0, creatinine 2.16, BUN 67 again suggestive of dehydration with prerenal azotemia. Patient has leukocytosis with left shift. ABG done in ER shows 7.51/24/82 on 2 L of oxygen suggestive of respiratory alkalosis most probably from tachypnea. Patient is admitted in ICU. 1. Narrow complex tachycardia, PSVT converted to normal sinus rhythm: Baseline arrhythmia of paroxysmal A. fib on Eliquis. Currently, normal sinus rhythm. Patient received Lovenox 1 mg/kg body weight 1 dose in ER. Continue Eliquis 2.5 mg twice daily. On IV Cardizem drip tapered down. On metoprolol, increased to 25 mg twice daily. Repeat 2D echo. Improvement Specialist consulted. Soda Drier Feeder consulted. Cycle cardiac enzymes. Chronic diastolic heart failure: Patient had last echo in July 2015 and reported as EF 55% with moderate to stage II diastolic dysfunction. No regional wall motion abnormalities. Left atrium mildly enlarged. Normal right atrium. Mildly dilated right ventricle with mild global right ventricular systolic dysfunction. Mild TR, RVSP 38 mmHg. Mild diffuse aortic valve calcification, aortic sclerosis but no stenosis. 2. Acute encephalopathy probably has baseline mild cognitive impairment/ dementia with generalized weakness: Most rarely patient has acute encephalopathy due to metabolic encephalopathy/infectious encephalopathy. IV fluid normal saline. Treat the underlying cause. 3. Severe sepsis (Fever, tachycardia, tachypnea) and lactic acidosis most probably from wound sepsis due to large sacral wound covered with slough, from previous surgery present on admission chronic in nature, probably stage IV: Wound care nurse and plastic surgeon consulted. Started on IV Zosyn. Needs wound debridement. Nutritional support. 4. Acute kidney injury on CKD stage III, multiple etiology including prerenal/ ATN from sepsis: Patient baseline creatinine varies from 1.58-1.81. Last creatinine 1.May 1.64. Currently 2.16. Major strict input and output. Consult [facility]. 5. Severe protein calorie malnutrition: As per the patient's , his body weight was 225 pound last summer, 2016 currently 175. Lost about 50 pounds in last 7-8 months. Pre-albumin, CRP ordered. Patient is consulted. Low albumin 1.6 in October 2016. 6. Diabetes mellitus type 2 with uncontrolled hyperglycemia: Patient glucose is 143. To check before meals and at bedtime cover with NovoLog sliding scale. A1c tomorrow a.m. 7. Multiple comorbidities including chronic diastolic heart failure, lumbar disc disease, chronic venous insufficiency, peripheral vascular disease, history of decubitus ulcer of right foot in the past, dyslipidemia, history of diverticulitis: Multiple comorbidities complicates the present care. Guarded prognosis. Advanced directive: Discussed with the patient . Patient does not have living will/advanced directive. Patient and at great they do not want artificial life support/CPR in irreversible stage. Needs further discussion with the palliative care to help with further details of nutritional support. Total time 17 minutes spent in discussion regarding details of advanced directive including vasopressor, central line, feeding support. Second time, this was again discussed with the patient and his brother and they want full code for now. Clinical Impression(s) from Imaging Studies Chest X-Ray 06/21/17 09:01 IMPRESSION: 1. Increasing pulmonary congestion. 2. Mild cardiomegaly. Electronically Signed: Kalie Sanabria MD at 9:37 EST , Service support , Brain CT 06/21/17 09:10 IMPRESSION: 1. Chronic involutional changes of the brain. 2. 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 3. No CT evidence of acute intracranial hemorrhage. 4. Possible acute left ethmoid sinus disease. Laboratory Results 06/21/17 09:05: WBC 15.8 H, RBC 3.93 L, Hgb 12.9 L, Hct 38.7 L, MCV 98.5 H, MCH 32.8 H, MCHC 33.3, RDW 15.6 H, RDW Differential 56.2 H, Plt Count 286, MPV 10.0 , Immature Gran % (Auto) 0.300, Neut % (Auto) 89.4 H, Lymph % (Auto) 5.5 L, [place] % (Auto) 4.7, Eos % (Auto) 0.0, Baso % (Auto) 0.1, Absolute Neuts (auto) 14.2 H, Absolute Lymphs (auto) 0.87, Total Counted Not Reportable 06/21/17 09:05: Sodium 133 L, Potassium 4.4, Chloride 99, Carbon Dioxide 21.0, Anion Gap 13, BUN 67 H, Creatinine 2.16 H, Estim Creat Clear Calc 33.43, Est GFR (MDRD) Af Amer 39 L, Est GFR (MDRD) Non-Af 32 L, BUN/Creatinine Ratio 31.0 H , Glucose 143 H, Calcium 9.5, Troponin I 0.26 H 06/21/17 09:05: B-Natriuretic Peptide > 5000.0 H 06/21/17 09:13: Lactic Acid 3.0 H 06/21/17 09:38: Specimen Type ART, Sample Site R Radial, pH 7.51 H, Bicarbonate Actual 19.1 L, POC Total CO2 20, Base Excess -4 L, O2 Saturation 97, ABG pCO2 24.1 L, ABG pO2 82, Arturo Test POS, O2 Delivery Device Nasal Can, Liter Flow 2.0 , Blood Gas Notified Whom ED MD, Blood Gas Notified Time 933 Code Visit Inpatient E&M: 57332 Init Hosp L3 Procedures: 19234 Advncd Care Plan 30 Min
--- NOTE | 2017-06-21 12:49 | ECHOD_ITS ---
Reason For Study: SOB Procedure This was a 2D Doppler, Color Flow transthoracic echocardiogram. The exam was of fair technical quality due to body positioning. The study was technically difficult. Exam performed portable in ICU/CCU. Left Ventricle Mildly dilated left ventricle. Severe segmental systolic dysfunction (see wall motion). The estimated ejection fraction is 20 %. Unable to assess diastolic dysfunction. Anterio-Basal: Hypokinetic. Infero-Basal: Severely Hypokinetic. Basal inferoseptal: Akinetic. Basal anteroseptal: Severely Hypokinetic. Mid-Anterior : Severely Hypokinetic. Mid-Lateral : Severely Hypokinetic. Mid- Posterior: Akinetic. Mid-Inferior: Akinetic. Mid-inferoseptal : Akinetic. Mid-anteroseptal : Hypokinetic. Anterior [place] : Not visualized. Inferior [place] : Not visualized. Lateral [place] : Not visualized. Septal [place] : Severely Hypokinetic. Right Ventricle Mildly dilated right ventricle. Mild global right ventricular systolic dysfunction. Atria The left atrium is moderately enlarged. The right atrium is mildly enlarged. No doppler evidence for ASD. Mitral Valve There is moderate mitral annular calcification. Extension of the mitral annular calcification onto the mitral valve leaflets with partial restriction. Mild diffuse mitral valve thickening. Moderate focal mitral valve calcification of the anterior leaflet. Moderate (2+) mitral valve insufficiency. Tricuspid Valve Normal tricuspid valve. Mild tricuspid valve insufficiency. Right ventricular systolic pressure estimated to be 41 mmHg. Aortic Valve Trisinus/trileaflet aortic valve. Mild diffuse aortic valve thickening. Moderate focal aortic valve calcification. Aortic sclerosis / mild aortic valve stenosis. Pulmonic Valve Normal pulmonic valve. Trivial pulmonic valve insufficiency. Great Vessels Normal sized aortic root. Calcified aortic root. Pericardium/Pleural No pericardial effusion. MMode/2D Measurements & Calculations LVIDd: 5.4 cm IVSd: 1.0 cm LVOT diam: 2.0 cm LVIDs: 4.8 cm LVPWd: 1.0 cm LVOT area: 3.2 cm2 FS: 10.8 % Ao root diam: 3.3 cm LAV(MOD-bp): 79.2 ml LA A4 area: 24.5 cm2 LA dimension: 5.8 cm LAV(MOD-bp) Indexed: 39.3 ml/m2 LAV(MOD-sp2): 69.7 ml LAV(MOD-sp4): 77.6 ml RA A4 area: 19.8 cm2 Doppler Measurements & Calculations MV E max roberto: 85.3 cm/sec Ao V2 max: 125.0 cm/sec LV V1 max: 82.8 cm/sec Ao max P.2 mmHg LV V1 max P.7 mmHg SIGRID(V,D): 2.1 cm2 PA V2 max: 65.6 cm/sec TR max roberto: 287.0 cm/sec TR max P.2 mmHg Interpretation Summary The study was technically difficult. Mildly dilated left ventricle. Severe segmental systolic dysfunction (see wall motion). The estimated ejection fraction is 20 %. Mildly dilated right ventricle. Mild global right ventricular systolic dysfunction. The left atrium is moderately enlarged. The right atrium is mildly enlarged. There is moderate mitral annular calcification. Mild diffuse mitral valve thickening. Moderate focal mitral valve calcification of the anterior leaflet with partial restriction. Moderate (2+) mitral valve insufficiency. Mild tricuspid valve insufficiency. Aortic sclerosis / mild aortic valve stenosis. Trivial pulmonic valve insufficiency. Calcified aortic root. Echolucency c/w ascites. Right ventricular systolic pressure estimated to be 41 mmHg. Unable to assess diastolic dysfunction. Ordering Physician: Cisco Bueno Referring Physician: Bernardo Lawson Performed By: Jennifer Hernandes RDCS
[2017-06-21 13:20] LABS: Reflex Lactate? Y
--- NOTE | 2017-06-21 13:29 | CON.PCM_ITS ---
<Barrera Mendes - Last Filed: 06/22/17 07:14> Reason for Consult Date of Consultation: 06/21/17 Reason for Consultation: Severe sepsis History of Present Illness: The patient is a 72-year-old male, with a history as outlined below, who presented to the emergency department on June 21 with altered mentation, generalized malaise, SVT and general failure to thrive. Patient's reports that he has been feeling ill for the last several days. The patient has had limited to no p.o. intake over the last several days. The patient's reports that he had a back surgery completed at the [facility] several years ago, which failed to heal appropriately. This past February, the patient underwent debridement of the infected area. He has been following with the wound care center at the [facility] and had cultures obtained last week. The patient's did receive a phone call today indicating that the patient is in fact infected. The patient currently resides at home with his , will receives home health services. The home health nurse reportedly became concerned over the patient's appearance today in the degree of his tachycardia, which prompted his referral to the emergency department for evaluation. Surface echocardiogram from July 2015 revealed evidence of stage II diastolic dysfunction with an ejection fraction of 55%. Right ventricular systolic pressure was estimated to be 38 mmHg. The patient also has a history of paroxysmal atrial fibrillation. In addition, he is a known history of MARY JANE, for which she is noncompliant with the use of his home CPAP. Pulmonary function testing was also completed in June 2015 revealed the presence of a moderate mixed ventilatory defect with a symmetric reduction in diffusing capacity. On presentation to the emergency department, the patient was initially noted to be afebrile, severely tachycardic but hemodynamically stable. The patient was tachypneic but maintaining appropriate oxygen saturations on room air. Laboratory evaluation revealed elevated white blood cell count to 16,000. Chemistry profile revealed evidence of hyponatremia with a sodium of 133. He also has evidence of acute on chronic kidney disease. Serum lactate was elevated at 3.0. Troponin was increased to 0.26 with an elevated BNP to 5000. Plain film chest x-ray revealed a mild degree of pulmonary vascular congestion. 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 It appears that the patient was given 12 mg of adenosine while in the emergency department, which revealed evidence of sinus tachycardia with a rate of 129. At some point he reportedly went into some form of a rapid complex rhythm, which prompted a cardioversion to be performed. There was apparent clinical concern for a CHF exacerbation. Therefore, Lasix was administered. No fluids or antibiotics were administered. The patient was subsequently transferred to the medical intensive care unit, after being started on a Cardizem drip. Orders for a beta-cyndi were also placed. Upon my review of the patient in the intensive care unit, it was readily apparent that the patient was septic. He had a core temperature of 104.3?F. Past Medical History Past Medical History (Chronic Problems): Chronic Problems Open wound of lower back (Chronic) with muscle and bone exposed s/p surgical debridement of abscess s/p lumbar spine surgery Chronic ulcer of right leg with fat layer exposed (Chronic) Lumbar disc disease (Chronic) Edema of both legs (Chronic) Leg swelling (Chronic) History of diverticulitis (Chronic) Hyperlipidemia (Chronic) Back pain at L4-L5 level (Chronic) History of non-Hodgkin's lymphoma (Chronic) Hypertension (Chronic) Shortness of breath (Chronic) Hypoxia (Chronic) History of atrial fibrillation (Chronic) Surgical wound dehiscence (Chronic) Renal insufficiency (Chronic) Soft tissue radionecrosis (Chronic) Ulcer of left heel and midfoot with fat layer exposed (Chronic) Decubitus ulcer, heel, right, unstageable (Chronic) Peripheral vascular disease (Chronic) Edema, lower extremity (Chronic) Malnutrition (Chronic) Pressure ulcer, back, lower (Chronic) Ulcer of right foot with fat layer exposed (Chronic) Decubitus ulcer of right foot, unstageable (Chronic) Peripheral vascular disease (Chronic) Ulcer of right lower extremity with fat layer exposed (Chronic) Tinea unguium (Chronic) Allergies sulfamethoxazole [From Bactrim] Allergy (Verified 06/21/17 08:58) Other trimethoprim [From Bactrim] Allergy (Verified 06/21/17 08:58) Other prednisone Adverse Reaction (Verified 06/21/17 08:58) Swelling Home Medications: Ambulatory Orders Medication Instructions Recorded RX: Ferrous Gluconate 240 mg PO BID 02/05/16 RX: Folic Acid 1 mg PO QHS 02/05/16 RX: Magnesium Oxide [Magnesium] 400 mg PO DAILY 02/05/16 RX: Metoprolol Tartrate [Lopressor 12.5 mg PO BID 02/05/16 (beta cyndi)] RX: Apixaban [Eliquis] 2.5 mg PO BID 03/16/16 RX: Cholecalciferol (Vitamin D3) 1,000 unit PO QHS 10/14/16 [Vitamin D3] RX: Gabapentin [Neurontin] 100 mg PO BIDCM #60 capsule 10/25/16 RX: Oxycodone [Oxyir] 30 mg PO PRN PRN 02/13/17 atorvastatin 20 mg tablet 20 mg PO QDAY #90 tab 05/16/17 Vit C/E/Zn/Coppr/Lutein/Zeaxan 2 each PO DAILY 06/21/17 [Preservision Areds 2 Softgel] Surgical History: - - The patient underwent partial colectomy for diverticulitis and splenectomy in 2002. Several months later, and ileostomy, which had been performed at the time of the initial surgery, was reversed. Lumbar L4-[address] Swan at the [facility] on November 02, 2015. Smoking Status: Former smoker - *Family History Maternal History Items: Heart Disease Paternal History Items: Diabetes Review of Systems Constitutional: Reports: Anorexia, Malaise, Weakness, Fatigue Eyes: Denies: Blurred vision, Double vision HEENT: Denies: Head Aches, Sinus Congestion, Sinus Drainage Cardiovascular: Reports: Chest Pain, Palpitations Respiratory: Reports: Shortness of Breath Gastrointestinal: Denies: Abdominal Pain, Nausea, Vomiting Genitourinary: Denies: Dysuria Musculoskeletal: Reports: Back Pain Skin: Denies: Rash, Wounds Neurological: Denies: Numbness, Tingling, Focal weakness Psychiatric: Denies: Anxiety, Depression, Homicidal Ideations, Suicidal Ideations Hematologic/ Lymphatic: Denies: Easy Bruising, Easy Bleeding Patient Problems: Active and Suspected Problems Altered mental status, unspecified (Acute) A-fib (Acute) Sepsis (Acute) Severe sepsis (Acute) wound sepsis of previous wound (Acute) Objective: The patient's most recent lab work, culture data and imaging studies have all been personally reviewed. Urine and blood cultures will be ordered. Will attempt to obtain [facility] medical records regarding his recent wound cultures. - Physical Exam General: Confused, Lethargic, - - Quite ill in appearance. HEENT: Atraumatic, PERRLA, Normocephalic Oral: Dry Mucosa Neck: Supple, No Nodes, Trachea Midline Lungs: Diminished, Rales, Tachypneic Cardiovascular: Normal S1, Normal S2, No murmurs, Tachycardic Abdomen: Bowel Sounds Present, Soft, Non Tender Extremities: No clubbing, No cyanosis, Edema Skin: - - Large lumbar paraspinal ulcer/wound Musculoskeletal: No Tenderness to Palpation of Joints or Extremities Lymphatic: No Cervical, Supraclavicular, or Inguinal Adenopathy Neurological: Neuro grossly intact Vital Signs Temp Pulse Resp BP Pulse Ox 98.3 F 118 H 26 H 117/89 H 97 06/21/17 08:59 06/21/17 12:53 06/21/17 10:52 06/21/17 10:52 06/21/17 10:52 Laboratory Tests Past 24 Hrs 06/21/17 06/21/17 13:05 13:05 Urine Color Pending Urine Clarity Pending Urine pH Pending Ur Specific Milmay Pending Urine Protein Pending Urine Glucose (UA) Pending Urine Ketones Pending Urine Occult Blood Pending Urine Nitrite Pending Urine Bilirubin Pending Urine Urobilinogen Pending Ur Leukocyte Esterase Pending MRSA (PCR) Pending Labs (Last 48 Hours) 06/21/17 06/21/17 06/21/17 09:05 09:05 09:05 WBC 15.8 H RBC 3.93 L Hgb 12.9 L Hct 38.7 L MCV 98.5 H MCH 32.8 H MCHC 33.3 RDW 15.6 H RDW Differential 56.2 H Plt Count 286 MPV 10.0 Immature Gran % (Auto) 0.300 Neut % (Auto) 89.4 H Lymph % (Auto) 5.5 L [place] % (Auto) 4.7 Eos % (Auto) 0.0 Baso % (Auto) 0.1 Absolute Neuts (auto) 14.2 H Absolute Lymphs (auto) 0.87 Total Counted Not Reportable Specimen Type Sample Site pH Bicarbonate Actual POC Total CO2 Base Excess O2 Saturation ABG pCO2 ABG pO2 Arturo Test O2 Delivery Device Liter Flow Blood Gas Notified Whom Blood Gas Notified Time Sodium 133 L Potassium 4.4 Chloride 99 Carbon Dioxide 21.0 Anion Gap 13 BUN 67 H Creatinine 2.16 H Estim Creat Clear Calc 33.43 Est GFR (MDRD) Af Amer 39 L Est GFR (MDRD) Non-Af 32 L BUN/Creatinine Ratio 31.0 H Glucose 143 H Lactic Acid Calcium 9.5 Troponin I 0.26 H B-Natriuretic Peptide > 5000.0 H Urine Color Urine Clarity Urine pH Ur Specific Milmay Urine Protein Urine Glucose (UA) Urine Ketones Urine Occult Blood Urine Nitrite Urine Bilirubin Urine Urobilinogen Ur Leukocyte Esterase MRSA (PCR) 06/21/17 06/21/17 06/21/17 09:13 09:38 13:05 WBC RBC Hgb Hct MCV MCH MCHC RDW RDW Differential Plt Count MPV Immature Gran % (Auto) Neut % (Auto) Lymph % (Auto) [place] % (Auto) Eos % (Auto) Baso % (Auto) Absolute Neuts (auto) Absolute Lymphs (auto) Total Counted Specimen Type ART Sample Site R Radial pH 7.51 H Bicarbonate Actual 19.1 L POC Total CO2 20 Base Excess -4 L O2 Saturation 97 ABG pCO2 24.1 L ABG pO2 82 Arturo Test POS O2 Delivery Device Nasal Can Liter Flow 2.0 Blood Gas Notified Whom ED MD Blood Gas Notified Time 933 Sodium Potassium Chloride Carbon Dioxide Anion Gap BUN Creatinine Estim Creat Clear Calc Est GFR (MDRD) Af Amer Est GFR (MDRD) Non-Af BUN/Creatinine Ratio Glucose Lactic Acid 3.0 H Calcium Troponin I B-Natriuretic Peptide Urine Color Marlyn Urine Clarity Turbid Urine pH 5.0 Ur Specific Milmay 1.015 Urine Protein 100 H Urine Glucose (UA) Normal Urine Ketones Negative Urine Occult Blood 250 H Urine Nitrite Negative Urine Bilirubin Negative Urine Urobilinogen Normal Ur Leukocyte Esterase 100 H MRSA (PCR) 06/21/17 13:05 WBC RBC Hgb Hct MCV MCH MCHC RDW RDW Differential Plt Count MPV Immature Gran % (Auto) Neut % (Auto) Lymph % (Auto) [place] % (Auto) Eos % (Auto) Baso % (Auto) Absolute Neuts (auto) Absolute Lymphs (auto) Total Counted Specimen Type Sample Site pH Bicarbonate Actual POC Total CO2 Base Excess O2 Saturation ABG pCO2 ABG pO2 Arturo Test O2 Delivery Device Liter Flow Blood Gas Notified Whom Blood Gas Notified Time Sodium Potassium Chloride Carbon Dioxide Anion Gap BUN Creatinine Estim Creat Clear Calc Est GFR (MDRD) Af Amer Est GFR (MDRD) Non-Af BUN/Creatinine Ratio Glucose Lactic Acid Calcium Troponin I B-Natriuretic Peptide Urine Color Urine Clarity Urine pH Ur Specific Milmay Urine Protein Urine Glucose (UA) Urine Ketones Urine Occult Blood Urine Nitrite Urine Bilirubin Urine Urobilinogen Ur Leukocyte Esterase MRSA (PCR) Pending Clinical Impression(s) from Imaging Studies Chest X-Ray 06/21/17 09:01 IMPRESSION: 1. Increasing pulmonary congestion. 2. Mild cardiomegaly. Electronically Signed: Kalie Sanabria MD at 9:37 EST , Service support , Brain CT 06/21/17 09:10 IMPRESSION: 1. Chronic involutional changes of the brain. 2. 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 3. No CT evidence of acute intracranial hemorrhage. 4. Possible acute left ethmoid sinus disease. Electronically Signed: Kalie Sanabria MD at 10:30 EST , Service support , Assessment/Plan Active and Suspected Problems Altered mental status, unspecified (Acute) A-fib (Acute) Sepsis (Acute) Severe sepsis (Acute) wound sepsis of previous wound (Acute) RECOMMENDATIONS: 1. Provide IV fluid resuscitation 30 cc/kg bolus. 2. Start broad-spectrum antibiotics with vancomycin and Zosyn, pending infectious workup 3. Obtain culture data from [facility] 4. Place central venous catheter 5. Discontinue Cardizem drip and transition to amiodarone infusion. 6. Recheck serum lactate level 7. Continue to trend troponins 8. Cardiology consultation is pending 9. Continue Eliquis 10. Obtain echocardiogram IMPRESSIONS: 1. Severe sepsis secondary to lumbosacral wound / Gram negative bacteremia At this time, the patient will receive bolus supplemental IV fluids per sepsis protocol. We will trend serum lactate level. Broad-spectrum antibiotics have been initiated. Plan to repeat wound and blood cultures. Will fax a record request to the [facility] to obtain the patient's recent bacterial culture data. A central line will be placed given the tenuous nature of the patient's hemodynamics. I highly suspect that the patient's supraventricular tachycardia noted on presentation, was the consequence of underlying sepsis. 2. Metabolic/infectious encephalopathy We will continue to monitor. CT head was already completed. Anticipate improvement in mentation with treatment of the patient's underlying infection. 3. SVT/troponin elevation/heart failure with preserved ejection fraction/ history of atrial fibrillation The patient does have a history of paroxysmal atrial fibrillation, for which she is prescribed Eliquis. However, it has been several days since he has taken sudden medication. His last echocardiogram revealed an intact ejection fraction. It does appear, per documentation from the ED, that the patient was in sinus tachycardia upon presentation. Nevertheless, attempts were made in the emergency department to cardiovert the patient. It is my suspicion that his SVT as a consequence of his underlying severe sepsis. Although he initially presented to the ICU on a Cardizem drip, the medication was discontinued and he was transitioned to an amiodarone drip. Cardiology has been consulted. Echocardiogram is pending. Will trend troponins. 4. Acute on chronic kidney disease Likely secondary to #1 and relative hemodynamic instability. Garcia catheter is in place. Will monitor urine output. If the patient's creatinine and/or urine output worsen over the next 24 hours, nephrology will be consulted. As noted above, supplemental IV fluids will be administered. If needed, vasopressor support will be administered to maintain hemodynamic stability. 5. Personal history of mixed ventilatory defect/obstructive sleep apnea/ chronic lumbosacral wound/hyperlipidemia Complicates care, management, recovery and prognosis. CPAP can be initiated on a nocturnal basis, pending stability in the patient's clinical state. Wound care nurse has been consulted to see the patient. TIME: 55 minutes of critical care time, independent of procedures, was spent addressing the patient's severe sepsis, complicated lumbosacral room, gram- negative bacteremia, metabolic/infectious cephalopathy, SVT, troponin elevation , acute on chronic kidney disease, review of all data and collaboration with the care team. ([id number]) Code Visit Inpatient E&M: 01964 Init Hosp L3 <Cisco Bueno - Last Filed: 06/23/17 14:20> Problem List (1) Open wound of lower back Status: Chronic Comment: with muscle and bone exposed s/p surgical debridement of abscess s/p lumbar spine surgery (2) Nonhealing surgical wound Status: Acute Qualifiers: (3) Chronic ulcer of right leg with fat layer exposed Status: Chronic (4) Lumbar disc disease Status: Chronic (5) Edema of both legs Status: Chronic (6) Leg swelling Status: Chronic (7) History of diverticulitis Status: Chronic (8) Hyperlipidemia Status: Chronic (9) Back pain at L4-L5 level Status: Chronic (10) History of non-Hodgkin's lymphoma Status: Chronic (11) Hypertension Status: Chronic (12) Shortness of breath Status: Chronic (13) Hypoxia Status: Chronic (14) History of atrial fibrillation Status: Chronic (15) Hemorrhage of tongue Status: Acute (16) Surgical wound dehiscence Status: Chronic (17) Renal insufficiency Status: Chronic (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 (19) Ulcer of left heel and midfoot with fat layer exposed Status: Chronic (20) Decubitus ulcer, heel, right, unstageable Status: Chronic (21) Peripheral vascular disease Status: Chronic (22) Edema, lower extremity Status: Chronic (23) Malnutrition Status: Chronic Qualifiers: (24) Pressure ulcer, back, lower Status: Chronic (25) Ulcer of right foot with fat layer exposed Status: Chronic (26) Decubitus ulcer of right foot, unstageable Status: Chronic (27) Peripheral vascular disease Status: Chronic (28) Venous insufficiency Status: Suspected (29) Ulcer of right lower extremity with fat layer exposed Status: Chronic (30) Tinea unguium Status: Chronic (31) Confusion Status: Acute (32) Generalized weakness Status: Acute (33) Acute kidney injury superimposed on chronic kidney disease Status: Acute (34) Altered mental status, unspecified Status: Acute Reason for Consult History of Present Illness: The patient is a 72 year old M [] Past Medical History Allergies sulfamethoxazole [From Bactrim] Allergy (Verified 06/21/17 08:58) Other trimethoprim [From Bactrim] Allergy (Verified 06/21/17 08:58) Other prednisone Adverse Reaction (Verified 06/21/17 08:58) Swelling - Physical Exam Vital Signs Temp Pulse Resp BP Pulse Ox 98.3 F 118 H 26 H 117/89 H 97 06/21/17 08:59 06/21/17 12:53 06/21/17 10:52 06/21/17 10:52 06/21/17 10:52 Oxygen Flow Rate 2 Oxygen Delivery Method Nasal Cannula Weight: 175 lb 14.862 oz Laboratory Tests Past 24 Hrs 06/21/17 06/21/17 06/21/17 13:05 13:05 14:00 Lactic Acid Troponin I Pending Urine Color Marlyn Urine Clarity Turbid Urine pH 5.0 Ur Specific Milmay 1.015 Urine Protein 100 H Urine Glucose (UA) Normal Urine Ketones Negative Urine Occult Blood 250 H Urine Nitrite Negative Urine Bilirubin Negative Urine Urobilinogen Normal Ur Leukocyte Esterase 100 H MRSA (PCR) Pending 06/21/17 14:00 Lactic Acid Pending Troponin I Urine Color Urine Clarity Urine pH Ur Specific Milmay Urine Protein Urine Glucose (UA) Urine Ketones Urine Occult Blood Urine Nitrite Urine Bilirubin Urine Urobilinogen Ur Leukocyte Esterase MRSA (PCR) Assessment/Plan Neuro: Cardiovascular: Respiratory: Gastrointestinal: Genitourinary: ID: Hematology: Endocrine: Skin: Lines/Tubes: Checklist: Time:
[2017-06-21 13:33] LABS: Color, Urine Amber (Yellow); Glucose, Dipstick Normal (Normal); Ketone-Dipstick Negative (Negative); Leukocyte Esterase-Dipstick 100 /ul (Negative); Nitrite-Dipstick Negative (Negative); Occult Blood-Urine 250 /ul (Negative); Protein-Dipstick 100 mg/dl (Negative); Specific Gravity, Urine 1.015 (1.002-1.030); Urine Bilirubin Dipstick Negative (Negative); Urine Clarity Turbid (Clear); Urine Urobilinogen Normal (Normal)
[2017-06-21] MEDS: Lactated Ringers 1,000 ML 999 ML IV ×2 (14:09→15:04)
--- NOTE | 2017-06-21 14:21 | PCM.CONS.C ---
Problem List (1) A-fib Status: Acute Reason for Consult Date of Consultation: 06/21/17 History of Present Illness: The patient is a 72 year old M who was brought to the emergency room as the home health nurse noted him to be tachycardic. He was noted to have altered mental status. In the emergency room, the patient was apparently noted to have narrow complex tachycardia with a heart rate of more than 180. According to the ER physician notes, he received 12 mg of adenosine which showed underlying rhythm to be normal sinus rhythm. In the emergency room, the patient also had attempted electrical cardioversion done. He was then started on a diltiazem infusion which slowed his heart rate down. Presently his heart rate is ranging between 100-1 20 bpm. Graft patient denies any chest pains. According to him, he has history of atrial fibrillation in the past. Patient has a chronic wound on his back. He was culture positive and has been started on antibiotics for that. Intensive care unit has seen the patient and thinks that the patient may be septic. Patient appears distressed and is not able to give a detailed history. [] Past Medical History Allergies/Adverse Reactions: Allergies sulfamethoxazole [From Bactrim] Allergy (Verified 06/21/17 08:58) Other trimethoprim [From Bactrim] Allergy (Verified 06/21/17 08:58) Other prednisone Adverse Reaction (Verified 06/21/17 08:58) Swelling Home Medications: Ambulatory Orders Medication Instructions Recorded Ferrous Gluconate 240 mg PO BID 02/05/16 Folic Acid 1 mg PO QHS 02/05/16 Magnesium Oxide [Magnesium] 400 mg PO DAILY 02/05/16 Metoprolol Tartrate [Lopressor 12.5 mg PO BID 02/05/16 (beta cyndi)] Apixaban [Eliquis] 2.5 mg PO BID 03/16/16 Cholecalciferol (Vitamin D3) 1,000 unit PO QHS 10/14/16 [Vitamin D3] Gabapentin [Neurontin] 100 mg PO BIDCM #60 capsule 10/25/16 Oxycodone [Oxyir] 30 mg PO DAILY 02/13/17 atorvastatin 20 mg tablet 20 mg PO QDAY #90 tab 05/16/17 Vit C/E/Zn/Coppr/Lutein/Zeaxan 2 each PO DAILY 06/21/17 [Preservision Areds 2 Softgel] Past Medical History (Chronic Problems): Chronic Problems Open wound of lower back (Chronic) with muscle and bone exposed s/p surgical debridement of abscess s/p lumbar spine surgery Nonhealing surgical wound (Chronic) Chronic ulcer of right leg with fat layer exposed (Chronic) Lumbar disc disease (Chronic) Edema of both legs (Chronic) Leg swelling (Chronic) History of diverticulitis (Chronic) Hyperlipidemia (Chronic) Back pain at L4-L5 level (Chronic) History of non-Hodgkin's lymphoma (Chronic) Hypertension (Chronic) Shortness of breath (Chronic) Hypoxia (Chronic) History of atrial fibrillation (Chronic) Surgical wound dehiscence (Chronic) Renal insufficiency (Chronic) Soft tissue radionecrosis (Chronic) Ulcer of left heel and midfoot with fat layer exposed (Chronic) Decubitus ulcer, heel, right, unstageable (Chronic) Peripheral vascular disease (Chronic) Edema, lower extremity (Chronic) Malnutrition (Chronic) Pressure ulcer, back, lower (Chronic) Ulcer of right foot with fat layer exposed (Chronic) Decubitus ulcer of right foot, unstageable (Chronic) Peripheral vascular disease (Chronic) Ulcer of right lower extremity with fat layer exposed (Chronic) Tinea unguium (Chronic) Surgical History: - - The patient underwent partial colectomy for diverticulitis and splenectomy in 2002. Several months later, and ileostomy, which had been performed at the time of the initial surgery, was reversed. Lumbar L4-[address] Swan at the [facility] on November 02, 2015. - *Family History Maternal History Items: Heart Disease Paternal History Items: Diabetes Smoking Status: Former smoker Review of Systems - Review of Systems Cardiovascular: Reports: Shortness of Breath. Denies: Chest Discomfort, Chest Discomfort at Rest Skin: Reports: - - Wound on the back Subjectve: Lying flat in the bed. Complaining of back pain. Objective: Vital Signs Temp Pulse Resp BP Pulse Ox 98.3 F 118 H 26 H 117/89 H 97 06/21/17 08:59 06/21/17 12:53 06/21/17 10:52 06/21/17 10:52 06/21/17 10:52 Oxygen Flow Rate 2 Oxygen Delivery Method Nasal Cannula General: Awake, Alert, Cooperative, Ill Appearing HEENT: Atraumatic Oral: Dry Mucosa Neck: Supple Lungs: Clear to auscultation Cardiovascular: Regular Rhythm, Normal S1, Normal S2 Abdomen: Bowel Sounds Present, Soft Neurological: - - Awake. Alert. Oriented. Psych/Mental Status: - 06/21/17 13:05: Urine Color Marlyn, Urine Clarity Turbid, Urine pH 5.0, Ur Specific [place] 1.015, Urine Protein 100 H, Urine Glucose (UA) Normal, Urine Ketones Negative, Urine Occult Blood 250 H, Urine Nitrite Negative, Urine Bilirubin Negative, Urine Urobilinogen Normal, Ur Leukocyte Esterase 100 H Presently this tachycardia. EKGs revealed atrial flutter/fibrillation with rapid ventricular response Assessment/Plan 1. Atrial fibrillation with rapid ventricular response. Presently normal sinus rhythm. Patient has been ordered for an amiodarone infusion. Agree. Patient on Eliquis for anticoagulation at home continue 2. Possible sepsis next 3. Large ulcer on the back 4. Elevated P. Will review echo.
--- NOTE | 2017-06-21 14:22 | CASEMGMT ---
See RN CM Assessment. DC PLAN: undetermined. -Pt had been @ home, able to ambulate independently with cane or walker. -[facility] current for dressing changes to back -message left with DORON Jaramillo mgr to add name to list if SNF is recommended closer to dc. -CM will continue to follow and assist with dc planning. Pattie CLINTONN RN ACM
[2017-06-21 14:28] LABS: ALB/GLOB Ratio 0.4 RATIO (0.9-2.4); AST(SGOT) 31 U/L (15-37); Alanine Aminotransfer ALT/SGPT 20 U/L (16-61); Albumin, Serum 2.8 g/dL (3.2-5.0); Alkaline Phosphatase 194 U/L (45-117); Anion Gap 17 (5-15); BUN 68 mg/dL (7-18); BUN/Creat Ratio 30.5 RATIO (10-20); Calcium,Total 9.1 mg/dL (8.5-10.1); Chloride 98 mmol/L (98-107); Creatinine, Serum 2.23 mg/dL (0.70-1.30); EST Glomerular Filtration Rate 31 mL/min (>60); Est Glom Filt Rate - Afr Amer 37 mL/min (>60); Estimated Creatinine Clearance 32.38 ml/min; Globulin 6.7 g/dL (2.2-4.2); Glucose 134 mg/dL (74-106); Potassium 4.5 mmol/L (3.5-5.1); Protein, Total 9.5 g/dL (6.4-8.2); Sodium Level 133 mmol/L (136-145)
--- NOTE | 2017-06-21 14:34 | RAD_ITS ---
STUDY: X-RAY CHEST REASON FOR EXAM: Male, 72 years old. Right-sided central line placement. TECHNIQUE: Single AP portable view of the chest. COMPARISON: June 21, 2017 time stamped 9:17 AM. FINDINGS: Right-sided central line is present in the internal jugular vein and the tip of the catheter is in the superior vena cava. Cardiac monitoring leads are present. There is moderate elevation of the right hemidiaphragm. There are prominent bronchovascular markings. There are questionable interstitial consolidations. Left lung is expanded. There is no demonstrated pleural abnormality. There is mild cardiac enlargement. There are calcified mediastinal and hilar lymph nodes. Normal visualized pulmonary arteries. There is atherosclerotic calcification of the aortic arch with tortuosity. There are diffuse degenerative changes of the visualized thoracic spine. Normal visualized ribs, clavicles, and shoulders. There is no demonstrated abnormality of the visualized soft tissue structures of the upper abdomen. RAD/CXR for Line Placement IMPRESSION: 1. Mild cardiomegaly and pulmonary congestion. 2. Appropriate positioning of right-sided central line without evidence for pneumothorax. Electronically Signed: Kalie Sanabria MD at 15:10 EST , Service support ,
--- NOTE | 2017-06-21 14:40 | PCM.OP.BLANK ---
Problem List (1) Sepsis Status: Acute Operative Report Date of Procedure: 06/21/17 - TLC cath insertion Central line placement procedure note Indication: IV access/hemodynamic instability/vasoactive medications Procedure: A time-out was completed to verify correct patient, indication, medication allergies, procedure, coagulation studies, informed consent signed, and equipment needed. The patient was placed in the supine position for a central line placement to the rt IJ vein. The patients rt neck was prepped using chlorhexidine and a full body sterile drape was applied. 1% lidocaine was used to anesthetize the surrounding skin. A 7fr 16 cm blue guard triple lumen catheter introduced into the internal jugular vein using the modified Seldinger technique with the assistance of ultrasound. The catheter was threaded smoothly over the guidewire, the guidewire was removed easily, nonpulsatile blood returned. All ports were aspirated of air and flushed with sterile saline. The catheter was sutured in place and covered with an occlusive dressing impregnated with chlorhexidine. Post-procedure: The patient tolerated the procedure well. Vital signs remained stable. EBL 3 cc. No complications. Chest X Ray ordered to confirm tip placement and the absence of pneumothorax.
--- NOTE | 2017-06-21 14:47 | NURSING ---
wound photo: mid lower back
[2017-06-21 14:55] LABS: Lactic Acid 2.8 mmol/L (0.4-2.0)
[2017-06-21] MEDS: fentaNYL 100 MCG/2 ML Ampul 25 MCG IV ×3 (15:42→22:58)
[2017-06-21 16:41] LABS: International Normalized Ratio 1.9; Prothrombin Time (Protime)PT. 21.1 SECONDS (11.7-14.9)
[2017-06-21 16:42] LABS: Partial Thromboplast Time 49.1 Seconds (24.1-36.2)
[2017-06-21] MEDS: Piperacil/Tazobactam 3.375 GM/50 ML ML IV ×2 (16:47→21:44)
[2017-06-21] MEDS: Acetaminophen 650 MG Suppository RECTAL ×2 (16:48→22:58)
[2017-06-21 17:14] LABS: M R Staph aureus DNA By PCR Negative (Negative); Probe Check PASS; Specimen Processing Control PASS
[2017-06-21 17:15] LABS: M R Staph aureus DNA By PCR Negative (Negative); Probe Check PASS; Specimen Processing Control PASS; Staph aureus DNA By PCR NEGATIVE (Negative)
--- NOTE | 2017-06-21 17:18 | NURSING ---
attempted to page dr miller through the bench assembler operator. states he is not taking new consults today. will attempt to call again in AM
[2017-06-21] MEDS: 0.9% NaCl Peripheral Flush Adult/Peds IV ×2 (18:04→22:59)
[2017-06-21 18:18] LABS: Reflex Lactate? Y
[2017-06-21] MEDS: Atorvastatin Calcium 20 MG Tablet PO (21:44)
[2017-06-21] MEDS: Folic Acid 1 MG Tablet PO (21:44)
[2017-06-21] MEDS: Senna/Docusate Sodium 1 Tablet 2 TABLET PO (21:44)
[2017-06-21] MEDS: APIXABAN 2.5 MG TABLET PO (21:57)
[2017-06-21 22:24] LABS: Reflex Lactate? Y
[2017-06-22] VITALS (30 sets, daily range): BP systolic 83–127; BP diastolic 52–81; PULSE 71–98; RESP 12–26; TEMP 36.8–38.8; O2SAT 94–100
[2017-06-22 00:06] LABS: Bedside Glucose 133 mg/dL (70-110)
[2017-06-22 01:24] LABS: Lactic Acid 1.4 mmol/L (0.4-2.0)
[2017-06-22] MEDS: fentaNYL 100 MCG/2 ML Ampul 25 MCG IV (03:09)
[2017-06-22] MEDS: 0.9% NaCl Peripheral Flush Adult/Peds IV ×2 (03:09→05:07)
[2017-06-22 05:01] LABS: Hematocrit 32.3 % (40-54); Hemoglobin 10.7 g/dl (13.0-16.5); Mean Corp Hgb Conc 33.1 g/gl (32-36); Mean Corpuscular Hgb 32.3 pg (27.0-32.0); Mean Corpuscular Volume 97.6 fL (80-94); Mean Platelet Vol. 9.7 fl (6.2-12.0); Platelet Count 236 K/mm3 (150-450); RBC Distribution Width CV 15.4 % (11.6-14.6); RBC Distribution Width SD 54.6 fl (35.1-43.9); Red Blood Count 3.31 M/mm3 (4.6-6.2); White Blood Count 14.9 K/mm3 (4.4-11.0)
[2017-06-22 05:02] LABS: Scan Indicated on CBC? Y/N NO
[2017-06-22] MEDS: Piperacil/Tazobactam 3.375 GM/50 ML ML IV (05:07)
--- NOTE | 2017-06-22 05:18 | PN_ITS ---
Subjective: The patient was seen and examined at the bedside this morning. Events from the last 24 hours have been reviewed. The patient is currently febrile with a T- max noted to be 104.2?F over the last 24 hours. Fever curve is improving, nonetheless. The patient's tachycardia has significantly improved. He remains hemodynamically stable and is maintaining appropriate oxygen saturations on room air. Potassium is low this morning at 3.3. Creatinine has improved. Lactic acidemia has resolved. Troponins did peak at 1.12 and are now down trending. The patient surface echocardiogram completed yesterday did reveal the presence of severe segmental systolic dysfunction of the LV with an ejection fraction of 20%. There was also evidence of mild global RV systolic dysfunction and a right ventricular systolic pressure which was estimated to be 41 mmHg. These findings represent a significant change from his last echocardiogram in our system dated July 2015. The patient is more alert and interactive this morning. He is reporting the presence of back pain. Bacterial culture results in the [facility] were obtained overnight. A wound culture collected on June 13 for the patient's back wound revealed the presence of Streptococcus viridans. Objective: The patient's most recent lab work, culture data and imaging studies have all been personally reviewed. Urine and wound cultures are currently pending. The patient did have gram-negative rods isolated from his blood culture dated June 21. Repeat blood cultures are currently pending. Bacterial wound culture from [facility], dated June 13, revealed the presence of Streptococcus viridans. Surface echocardiogram from July 2015 revealed evidence of stage II diastolic dysfunction with an ejection fraction of 55%. Right ventricular systolic pressure was estimated to be 38 mmHg. He has a known history of MARY JANE, for which he is noncompliant with the use of his home CPAP. He is supposed to be utilizing CPAP with a pressure setting of 11 cm of water, based upon his titration study from June 2015. Pulmonary function testing was also completed in June 2015 revealed the presence of a moderate mixed ventilatory defect with a symmetric reduction in diffusing capacity. General: Alert, Cooperative, No apparent distress HEENT: Atraumatic, PERRLA, Normocephalic Oral: No Gingival or Mucosal Lesions/ Ulcerations, Dry Mucosa Neck: Supple, No Nodes, Trachea Midline, - - Central venous catheter remains in place Lungs: No rhonchi, No wheeze, Diminished, Rales Cardiovascular: Regular rate, Regular Rhythm, Normal S1, Normal S2, No murmurs Abdomen: Bowel Sounds Present, Soft, Non Tender Extremities: No clubbing, No cyanosis, Edema Skin: - - Large lumbar paraspinal ulcer/wound Musculoskeletal: - - Positive back pain Lymphatic: No Cervical, Supraclavicular, or Inguinal Adenopathy Neurological: Neuro grossly intact Psych/Mental Status: Flat Affect Vital Signs Temp Pulse Resp BP Pulse Ox 99.3 F H 82 18 108/67 99 06/22/17 05:00 06/22/17 05:00 06/22/17 05:00 06/22/17 05:00 06/22/17 05:00 Oxygen Flow Rate 2 Oxygen Delivery Method Room Air Weight: 167 lb 12.348 oz Body Mass Index (BMI) 25.4 Intake and Output for Last 24 Hours 06/20/17 06/21/17 06/22/17 23:59 23:59 23:59 Intake Total 2034 / 2034 85.6 / 85.6 Output Total 450 / 450 140 / 140 Balance 1584 / 1584 -54.4 / -54.4 Labs (Last 48 Hours) 06/21/17 06/21/17 06/21/17 13:05 13:05 13:33 WBC RBC Hgb Hct MCV MCH MCHC RDW RDW Differential Plt Count MPV PT INR APTT Sodium Potassium Chloride Carbon Dioxide Anion Gap BUN Creatinine Est GFR (MDRD) Af Amer Est GFR (MDRD) Non-Af BUN/Creatinine Ratio Glucose Lactic Acid Calcium Troponin I Urine Color Marlyn Urine Clarity Turbid Urine pH 5.0 Ur Specific [place] 1.015 Urine Protein 100 H Urine Glucose (UA) Normal Urine Ketones Negative Urine Occult Blood 250 H Urine Nitrite Negative Urine Bilirubin Negative Urine Urobilinogen Normal Ur Leukocyte Esterase 100 H S.aureus Protein A PCR NEGATIVE MRSA (PCR) Negative Negative POC Glucose 06/21/17 06/21/17 06/21/17 14:00 14:00 16:15 WBC RBC Hgb Hct MCV MCH MCHC RDW RDW Differential Plt Count MPV PT 21.1 H INR 1.9 APTT 49.1 H Sodium Potassium Chloride Carbon Dioxide Anion Gap BUN Creatinine Est GFR (MDRD) Af Amer Est GFR (MDRD) Non-Af BUN/Creatinine Ratio Glucose Lactic Acid 2.8 H Calcium Troponin I 0.71 H* Urine Color Urine Clarity Urine pH Ur Specific [place] Urine Protein Urine Glucose (UA) Urine Ketones Urine Occult Blood Urine Nitrite Urine Bilirubin Urine Urobilinogen Ur Leukocyte Esterase S.aureus Protein A PCR MRSA (PCR) POC Glucose 06/21/17 06/21/17 06/22/17 18:05 18:05 00:00 WBC RBC Hgb Hct MCV MCH MCHC RDW RDW Differential Plt Count MPV PT INR APTT Sodium Potassium Chloride Carbon Dioxide Anion Gap BUN Creatinine Est GFR (MDRD) Af Amer Est GFR (MDRD) Non-Af BUN/Creatinine Ratio Glucose Lactic Acid 2.0 Calcium Troponin I 1.12 H* Urine Color Urine Clarity Urine pH Ur Specific [place] Urine Protein Urine Glucose (UA) Urine Ketones Urine Occult Blood Urine Nitrite Urine Bilirubin Urine Urobilinogen Ur Leukocyte Esterase S.aureus Protein A PCR MRSA (PCR) POC Glucose 133 H 06/22/17 06/22/17 06/22/17 00:30 04:50 04:50 WBC 14.9 H RBC 3.31 L Hgb 10.7 L Hct 32.3 L MCV 97.6 H MCH 32.3 H MCHC 33.1 RDW 15.4 H RDW Differential 54.6 H Plt Count 236 MPV 9.7 PT INR APTT Sodium Pending Potassium Pending Chloride Pending Carbon Dioxide Pending Anion Gap Pending BUN Pending Creatinine Pending Est GFR (MDRD) Af Amer Pending Est GFR (MDRD) Non-Af Pending BUN/Creatinine Ratio Pending Glucose Pending Lactic Acid Calcium Pending Troponin I 1.00 H* Urine Color Urine Clarity Urine pH Ur Specific [place] Urine Protein Urine Glucose (UA) Urine Ketones Urine Occult Blood Urine Nitrite Urine Bilirubin Urine Urobilinogen Ur Leukocyte Esterase S.aureus Protein A PCR MRSA (PCR) POC Glucose Microbiology 06/21/17 14:30 Blood Culture (Wb) - Other Blood Culture - Preliminary Clinical Impression(s) from Imaging Studies Chest X-Ray 06/21/17 09:01 IMPRESSION: 1. Increasing pulmonary congestion. 2. Mild cardiomegaly. Electronically Signed: Kalie Sanabria MD at 9:37 EST , Service support , Brain CT 06/21/17 09:10 IMPRESSION: 1. Chronic involutional changes of the brain. 2. 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 3. No CT evidence of acute intracranial hemorrhage. 4. Possible acute left ethmoid sinus disease. Electronically Signed: Kalie Sanabria MD at 10:30 EST , Service support , Chest X-Ray 06/21/17 14:34 IMPRESSION: 1. Mild cardiomegaly and pulmonary congestion. 2. Appropriate positioning of right-sided central line without evidence for pneumothorax. Electronically Signed: Kalie Sanabria MD at 15:10 EST , Service support , Assessment/Plan Active and Suspected Problems Altered mental status, unspecified (Acute) A-fib (Acute) Sepsis (Acute) Severe sepsis (Acute) wound sepsis of previous wound (Acute) RECOMMENDATIONS: 1. No continuous supplemental IV fluids, given depressed ejection fraction noted on echocardiogram 2. Continue broad-spectrum antibiotics 3. Discontinue amiodarone drip 4. Discontinue fentanyl and start oxycodone for pain 5. Electrolyte repletion 6. Continue Eliquis 7. Speech therapy evaluation. If passes, diet can be advanced accordingly. 8. Continue Pepcid 9. Awaiting follow-up by cardiology, as the patient had a significant change in his echocardiogram findings. He may be a candidate for an ischemic evaluation during this hospital admission. IMPRESSIONS: 1. Severe sepsis secondary to lumbosacral wound / Gram negative bacteremia The patient did receive supplemental IV fluids initially and stabilized from a hemodynamic perspective. Serum lactate has normalized. Will continue broad- spectrum antibiotics, pending finalized infectious workup. I highly suspect that the patient's supraventricular tachycardia noted on presentation, was the consequence of underlying sepsis. 2. Metabolic/infectious encephalopathy Improved this morning. We will continue to monitor. CT head was already completed. 3. SVT/troponin elevation/new onset systolic heart failure/history of atrial fibrillation The patient does have a history of paroxysmal atrial fibrillation, for which he is prescribed Eliquis. Repeat echocardiogram completed during this hospital admission revealed a significant change. The patient's ejection fraction fell from approximately 55% in 2016 to 20% on this hospital admission. Cardiology is following. Amiodarone drip will be discontinued this morning. It is my suspicion that his SVT as a consequence of his underlying severe sepsis. The patient may be a candidate for an ischemic evaluation at some point during this hospital admission. 4. Acute on chronic kidney disease Improving at this time. Likely secondary to #1 and relative hemodynamic instability. Garcia catheter is in place. Will monitor urine output. If the patient's creatinine and/or urine output worsen over the next 24 hours, nephrology will be consulted. 5. Personal history of mixed ventilatory defect/obstructive sleep apnea/ chronic lumbosacral wound/hyperlipidemia Complicates care, management, recovery and prognosis. CPAP can be initiated on a nocturnal basis, pending stability in the patient's clinical state. Wound care is following. This note was generated with [employer] dictation software. It may contain incorrect words, spelling, and punctuation that were not noted in checking the note before signing. Code Visit Inpatient E&M: 57202 Subs Hosp L3
[2017-06-22 05:43] LABS: Anion Gap 11 (5-15); BUN 70 mg/dL (7-18); Calcium,Total 8.3 mg/dL (8.5-10.1); Chloride 103 mmol/L (98-107); EST Glomerular Filtration Rate 35 mL/min (>60); Est Glom Filt Rate - Afr Amer 42 mL/min (>60); Estimated Creatinine Clearance 31.83 ml/min; Glucose 128 mg/dL (74-106); Potassium 3.3 mmol/L (3.5-5.1); Sodium Level 137 mmol/L (136-145)
[2017-06-22 06:21] LABS: Bedside Glucose 117 mg/dL (70-110)
[2017-06-22] MEDS: Gabapentin 100 MG Capsule PO ×2 (08:45→16:40)
--- NOTE | 2017-06-22 09:24 | PCM.PN.HOSP ---
Patient Problems: Active and Suspected Problems Altered mental status, unspecified (Acute) A-fib (Acute) Sepsis (Acute) Severe sepsis (Acute) wound sepsis of previous wound (Acute) Subjective: Patient overall feels better. He is more awake and alert. He had T-max 104.2?F yesterday. Low-grade fever about 100.1 to 101.9 Fahrenheit patient was seen by associate financial planner. Discussed with the grout machine operator. Vitals/I&O's: Vital Signs Temp Pulse Resp BP Pulse Ox 100.0 F H 91 22 H 108/68 98 06/22/17 06:00 06/22/17 06:00 06/22/17 06:00 06/22/17 06:00 06/22/17 07:40 Oxygen Flow Rate 2 Oxygen Delivery Method Room Air Weight: 173 lb 11.588 oz Body Mass Index (BMI) 25.4 Intake and Output for Last 24 Hours 06/20/17 06/21/17 06/22/17 23:59 23:59 23:59 Intake Total 2034 / 2034 216.9 / 216.9 Output Total 450 / 450 440 / 440 Balance 1584 / 1584 -223.1 / -223.1 General: Alert, Cooperative, Confused, Lethargic HEENT: Atraumatic, PERRLA, EOMI, Normocephalic Oral: Moist Mucosa Neck: Supple, No JVD, Negative Carotid Bruits, - - Right IJ central venous catheter present had no hematoma. Lungs: Clear to auscultation, No wheeze, Diminished, Rales - Occasional fine Cardiovascular: Regular rate, Regular Rhythm, Normal S1, Normal S2, No murmurs Abdomen: Bowel Sounds Present, Soft, Non Tender, Non-Distended Extremities: No edema, Capillary Refill Less than 3 Seconds Skin: Ulcer/ Wound - Large deep sacral decubitus with floor covered with slough in sacral region about 15 cm. As per the wound nurse, Tatyana it is from the previous lumbar spinal surgery BUT not decubitus Musculoskeletal: No Tenderness to Palpation of Joints or Extremities, Arthritic Changes Neurological: Cranial nerves II-XII grossly intact Psych/Mental Status: Normal Affect, Appropriate Microbiology Past 72 Hours 06/21/17 14:30 Blood Culture (Wb) - Other Blood Culture - Preliminary Laboratory Results 06/21/17 13:05: Urine Color Marlyn, Urine Clarity Turbid, Urine pH 5.0, Ur Specific Forbes 1.015, Urine Protein 100 H, Urine Glucose (UA) Normal, Urine Ketones Negative, Urine Occult Blood 250 H, Urine Nitrite Negative, Urine Bilirubin Negative, Urine Urobilinogen Normal, Ur Leukocyte Esterase 100 H 06/21/17 13:05: MRSA (PCR) Negative 06/21/17 13:33: S.aureus Protein A PCR NEGATIVE, MRSA (PCR) Negative 06/21/17 14:00: Troponin I 0.71 H* 06/21/17 14:00: Lactic Acid 2.8 H 06/21/17 16:15: PT 21.1 H, INR 1.9, APTT 49.1 H 06/21/17 18:05: Troponin I 1.12 H* 06/21/17 18:05: Lactic Acid 2.0 06/22/17 00:00: POC Glucose 133 H 06/22/17 00:30: Troponin I 1.00 H* 06/22/17 04:50: WBC 14.9 H, RBC 3.31 L, Hgb 10.7 L, Hct 32.3 L, MCV 97.6 H, MCH 32.3 H, MCHC 33.1, RDW 15.4 H, RDW Differential 54.6 H, Plt Count 236, MPV 9.7 06/22/17 04:50: Sodium 137, Potassium 3.3 L, Chloride 103, Carbon Dioxide 23.0, Anion Gap 11, BUN 70 H, Creatinine 2.00 H, Estim Creat Clear Calc 31.83, Est GFR (MDRD) Af Amer 42 L, Est GFR (MDRD) Non-Af 35 L, BUN/Creatinine Ratio 35.0 H, Glucose 128 H, Calcium 8.3 L 06/22/17 06:13: POC Glucose 117 H Current Medications Acetaminophen (Tylenol) 650 mg RECTAL Q4H PRN PRN PRN Reason: fever, pain Last Admin: 06/21/17 22:58 Dose: 650 mg Apixaban (Eliquis) 2.5 mg PO BID [facility] Last Admin: 06/21/17 21:57 Dose: 2.5 mg Atorvastatin Calcium (Lipitor) 20 mg PO QHS [facility] Last Admin: 06/21/17 21:44 Dose: 20 mg Famotidine (Pepcid) 20 mg PO DAILY [facility] Folic Acid (Folic Acid) 1 mg PO QHS [facility] Last Admin: 06/21/17 21:44 Dose: 1 mg [facility] Last Admin: 06/22/17 08:45 Dose: 100 mg Sodium Chloride () 250 mls @ 15 mls/hr IV .[id number] PRN PRN Reason: SALINE FLUSH Sodium Chloride () 250 mls @ 15 mls/hr IV .[id number] PRN PRN Reason: SALINE FLUSH Cefepime HCl 1 gm/ Sodium (Chloride) 50 mls @ 100 mls/hr IV Q12 [facility] Potassium Chloride 40 meq/ (Sodium Chloride) 120 mls @ 100 mls/hr IV X1 ONE Stop: 06/22/17 11:11 Magnesium Hydroxide (Milk Of Magnesia) 30 ml PO DAILY PRN PRN PRN Reason: Constipation Magnesium Oxide (Mag-Ox 400) 400 mg PO DAILY [facility] Multivitamins/Minerals (Ocuvite) 2 tablet PO DAILY [facility] Oxycodone HCl (Oxycontin) 30 mg PO DAILY [facility] Oxycodone HCl (Oxyir) 5 - 10 mg PO Q4H PRN PRN PRN Reason: MOD-SEVERE PAIN (4-10/10) Psyllium Hydrophilic Mucilloid (Metamucil) 1 packet PO DAILY PRN PRN PRN Reason: CONSTIPATION Senna/Docusate Sodium (Senokot-S, Uma-Colace) 2 tablet PO BID [facility] Last Admin: 06/21/17 21:44 Dose: 2 tablet Sodium Chloride () 5 - 30 ml IV UD PRN PRN Reason: SALINE FLUSH Last Admin: 06/22/17 05:07 Dose: 20 ml Assessment/Plan Active and Suspected Problems Altered mental status, unspecified (Acute) A-fib (Acute) Sepsis (Acute) Severe sepsis (Acute) wound sepsis of previous wound (Acute) The patient is a 72 year old M with multiple comorbidities as listed above was sent to ER by home health nurse when patient was not feeling well and generalized systemic complaints of headache, thirsty, low urine output and altered mental status. The EMS EKG shows PSVT at 1 85 bpm, RBBB, LAFB with left axis deviation. In the ER, he was found to have PSVT with heart rate 1 90/min, respiratory rate 40/min. The patient had adenosine 6 mg and then 12 mg IV patient distal sinus tachycardia and then again PSVT and finally was given DC cardioversion 150 under etomidate sedation. Last EKG shows normal sinus rhythm at 73 bpm with QRS duration 136 ms. Patient has history of paroxysmal A. fib and on Eliquis. Chest x-ray shows peribronchial cuffing and mild hilar congestion but overall I feel patient is dehydrated with low urine output. As per the patient and his he has having low urine output, dark yellow in color for last 3-4 days and patient is thirsty.. Patient was given Lasix 40 mg IV in the ER. Started on IV Cardizem drip. Besides that he has large sacral decubitus ulcer covered with slough and has low-grade fever WITH chills at home. He was recommended by wound center, [facility] to go to ER for positive wound culture, drawn a week ago. Preliminary blood work shows lactic acid 3.0, creatinine 2.16, BUN 67 again suggestive of dehydration with prerenal azotemia. Patient has leukocytosis with left shift. ABG done in ER shows 7.51/24/82 on 2 L of oxygen suggestive of respiratory alkalosis most probably from tachypnea. Patient is admitted in ICU. 1. 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 Discussed with the wound nurse, Tatyana. The patient had lumbar spinal surgery approximately 1 year ago at [facility], [place]. He had postoperative complication with abscess status post debridement on 03/04/2017 at [facility] and had wound VAC. Patient had wound culture in [facility] about a week ago and was called at wound culture is positive and therefore patient was sent to ER for antibiotic. Patient follows wound center in [facility] home health nurse changes the dressing. Started on IV Zosyn and vancomycin which is changed to cefepime. Repeat lactic acid is normal. Wound culture done here shows preliminary gram-negative briana 2+. Respiratory panel negative. Needs wound debridement when patient is more stable. Nutritional support. 2. Chronic diastolic heart failure: Patient had last echo in July 2015 and reported as EF 55% with moderate to stage II diastolic dysfunction. No regional wall motion abnormalities. Left atrium mildly enlarged. Normal right atrium. Mildly dilated right ventricle with mild global right ventricular systolic dysfunction. Mild TR, RVSP 38 mmHg. Mild diffuse aortic valve calcification, aortic sclerosis but no stenosis. Repeat cardiac cath on June 21, 2017 shows EF 20% with severe segmental systolic dysfunction: Akinetic mid anteroseptal, mid inferior, mid posterior and mid inferoseptal and severely hypokinetic mid anterior and basal anteroseptal and admission details in echo report. RVSP 41 mmHg with mild TR. Moderate focal aortic valve calcification with mild aortic valve stenosis. Left atrium moderately enlarged. Right atrium mildly enlarged. On hemodynamic monitoring with strict intake and output. Acute encephalopathy probably has baseline mild cognitive impairment/dementia with generalized weakness, consistent with metabolic/infectious encephalopathy: Improved today. Treat the underlying cause. IV fluid discontinued. 3. Narrow complex tachycardia, PSVT converted to normal sinus rhythm: Baseline arrhythmia of paroxysmal A. fib on Eliquis. Currently, normal sinus rhythm. Patient received Lovenox 1 mg/kg body weight 1 dose in ER. Continue Eliquis 2.5 mg twice daily. Cardizem drip discontinued. Metoprolol discontinued. On amiodarone. 4. Acute kidney injury on CKD stage III, multiple etiology including prerenal/ATN from sepsis: Patient baseline creatinine varies from 1.58-1.81. Last creatinine 1.May 1.64. Currently 2.16. Major strict input and output. [facility] has been consulted. Kidney function slightly improved. 5. Severe protein calorie malnutrition: As per the patient's , his body weight was 225 pound last 2016 currently 175. Lost about 50 pounds in last 7-8 months. Pre-albumin, CRP ordered. Patient is consulted. Low albumin 1.6 in October 2016. 6. Diabetes mellitus type 2 with uncontrolled hyperglycemia: Patient glucose is 143. To check before meals and at bedtime cover with NovoLog sliding scale. A1c tomorrow a.m. 7. Multiple comorbidities including chronic diastolic heart failure, lumbar disc disease, chronic venous insufficiency, peripheral vascular disease, history of decubitus ulcer of right foot in the past, dyslipidemia, history of diverticulitis: Multiple comorbidities complicates the present care. Guarded prognosis. Advanced directive: Discussed with the patient . Patient does not have living will/advanced directive. For now patient wants full code. Again discussed regarding poor prognosis in view of multiple comorbidities including severe heart failure, he might be a good candidate for DNR CC arrest DVT prophylaxis: On Eliquis Clinical Impression(s) from Imaging Studies Chest X-Ray 06/21/17 09:01 IMPRESSION: 1. Increasing pulmonary congestion. 2. Mild cardiomegaly. Electronically Signed: Kalie Sanabria MD at 9:37 EST , Service support , Brain CT 06/21/17 09:10 IMPRESSION: 1. Chronic involutional changes of the brain. 2. 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 3. No CT evidence of acute intracranial hemorrhage. 4. Possible acute left ethmoid sinus disease. Laboratory Results 06/21/17 09:05: WBC 15.8 H, RBC 3.93 L, Hgb 12.9 L, Hct 38.7 L, MCV 98.5 H, MCH 32.8 H, MCHC 33.3, RDW 15.6 H, RDW Differential 56.2 H, Plt Count 286, MPV 10.0, Immature Gran % (Auto) 0.300, Neut % (Auto) 89.4 H, Lymph % (Auto) 5.5 L, [place] % (Auto) 4.7, Eos % (Auto) 0.0, Baso % (Auto) 0.1, Absolute Neuts (auto) 14.2 H, Absolute Lymphs (auto) 0.87, Total Counted Not Reportable 06/21/17 09:05: Sodium 133 L, Potassium 4.4, Chloride 99, Carbon Dioxide 21.0, Anion Gap 13, BUN 67 H, Creatinine 2.16 H, Estim Creat Clear Calc 33.43, Est GFR (MDRD) Af Amer 39 L, Est GFR (MDRD) Non-Af 32 L, BUN/Creatinine Ratio 31.0 H, Glucose 143 H, Calcium 9.5, Troponin I 0.26 H 06/21/17 09:05: B-Natriuretic Peptide > 5000.0 H 06/21/17 09:13: Lactic Acid 3.0 H 06/21/17 09:38: Specimen Type ART, Sample Site R Radial, pH 7.51 H, Bicarbonate Actual 19.1 L, POC Total CO2 20, Base Excess -4 L, O2 Saturation 97, ABG pCO2 24.1 L, ABG pO2 82, Arturo Test POS, O2 Delivery Device Nasal Can, Liter Flow 2.0, Blood Gas Notified Whom ED MD, Blood Gas Notified Time 933 Code Visit Inpatient E&M: 76619 Init Hosp L3
[2017-06-22] MEDS: Magnesium Oxide 400 MG Tablet PO (10:49)
[2017-06-22] MEDS: APIXABAN 2.5 MG TABLET PO ×2 (10:50→21:37)
[2017-06-22] MEDS: Cefepime 1 GM in 0.9% NS 50 ML Minibag Q12 IV ×2 (10:50→21:37)
[2017-06-22] MEDS: Senna/Docusate Sodium 1 Tablet 2 TABLET PO ×2 (10:50→21:37)
[2017-06-22] MEDS: oxyCODONE CR 15 MG Tablet 30 MG PO (10:50)
[2017-06-22] MEDS: Famotidine 20 MG Tablet PO (10:50)
[2017-06-22] MEDS: Acetaminophen 325 MG Tablet 650 MG PO ×2 (11:36→21:51)
[2017-06-22] MEDS: fentaNYL 25 MCG Patch TRANSDERM. (13:52)
--- NOTE | 2017-06-22 14:19 | PCM.PN.CARD ---
Subjectve: Awake. Alert. Lying flat in the bed. No apparent distress. Denies any complaints. Objective: Vital Signs Temp Pulse Resp BP Pulse Ox 100.1 F H 84 21 H 93/62 97 06/22/17 13:00 06/22/17 13:00 06/22/17 13:00 06/22/17 13:00 06/22/17 13:00 Oxygen Flow Rate 2 Oxygen Delivery Method Room Air Weight: 78.8 kg Body Mass Index (BMI) 25.4 Intake and Output for Last 24 Hours 06/20/17 06/21/17 06/22/17 23:59 23:59 23:59 Intake Total 4 / 2034 549.9 / 549.9 Output Total 450 / 450 640 / 640 Balance 1584 / 1584 -90.1 / -90.1 General: Awake, Alert, No Acute Distress, Ill Appearing Oral: Moist Mucosa Lungs: Clear to auscultation Cardiovascular: Regular Rhythm, Normal S1, Normal S2 Extremities: No edema Neurological: No Focal Motor or Sensory Deficit 06/21/17 14:00: Troponin I 0.71 H* 06/21/17 14:00: Lactic Acid 2.8 H 06/21/17 16:15: PT 21.1 H, INR 1.9, APTT 49.1 H 06/21/17 18:05: Troponin I 1.12 H* 06/21/17 18:05: Lactic Acid 2.0 06/22/17 00:30: Troponin I 1.00 H* 06/22/17 04:50: WBC 14.9 H, RBC 3.31 L, Hgb 10.7 L, Hct 32.3 L, MCV 97.6 H, MCH 32.3 H, MCHC 33.1, RDW 15.4 H, RDW Differential 54.6 H, Plt Count 236, MPV 9.7 06/22/17 04:50: Sodium 137, Potassium 3.3 L, Chloride 103, Carbon Dioxide 23.0, Anion Gap 11, BUN 70 H, Creatinine 2.00 H, Est GFR (MDRD) Af Amer 42 L, Est GFR (MDRD) Non-Af 35 L, BUN/Creatinine Ratio 35.0 H, Glucose 128 H, Calcium 8.3 L Rhythm: Normal sinus EKG: ECHO: Ejection fraction 20%. Assessment/Plan 1. Non-ST elevation myocardial infarction. Likely demand phenomenon on underlying CAD with hypoperfusion from sepsis. Patient asymptomatic. Start on low-dose aspirin graft 2. Severe LV systolic dysfunction. Ejection fraction 20%. This could be a transient phenomenon with his sepsis syndrome. Need repeat echocardiogram at a later stage once his current medical situation is improved. Likely as outpatient. No beta-blockers or MABEL inhibitors at present because of septic shock. Avoid fluid volume overload 3. Paroxysmal atrial fibrillation. Amiodarone infusion stopped. Start on p.o. amiodarone to keep in normal sinus rhythm. Continue Eliquis next 4. Sepsis/septic shock. Growing gram-negative rods in his blood. Also growing cultures from back wound. Manage as per internal medicine and intensive care 5. Renal insufficiency. Acute on chronic. Consider nephrology consult Overall prognosis remains guarded
[2017-06-22] MEDS: Amiodarone 200 MG Tablet PO (16:40)
[2017-06-22] MEDS: Aspirin E.C. 81 MG Tablet PO (16:40)
[2017-06-22] MEDS: Folic Acid 1 MG Tablet PO (21:37)
[2017-06-22] MEDS: Atorvastatin Calcium 20 MG Tablet PO (21:37)
[2017-06-22] MEDS: 0.9% NaCl IVPB Med Flush (250 mL) 15 ML IV (21:38)
[2017-06-23] VITALS (19 sets, daily range): BP systolic 87–126; BP diastolic 55–81; PULSE 58–75; RESP 11–22; TEMP 35.8–37.1; O2SAT 95–100
[2017-06-23 04:35] LABS: Absolute Neutrophil Count 8.6 X10^3/uL (2.0-7.7); Basophil# 0.01 X10^3/uL; Basophil% 0.1 % (0-1); Eosinophil# 0.02 X10^3/uL; Eosinophils% 0.2 % (0-5); Hematocrit 32.1 % (40-54); Hemoglobin 10.3 g/dl (13.0-16.5); Lymphocyte % 7.4 % (19-41); Mean Corp Hgb Conc 32.1 g/gl (32-36); Mean Corpuscular Hgb 31.8 pg (27.0-32.0); Mean Corpuscular Volume 99.1 fL (80-94); Mean Platelet Vol. 10.2 fl (6.2-12.0); Monocyte# 1.35 X10^3/uL; Monocyte% 12.5 % (0-10); Neutrophil # 8.55 X10^3/uL (2.7-7.7); Neutrophil % 79.5 % (47-70); Platelet Count 241 K/mm3 (150-450); RBC Distribution Width SD 58.3 fl (35.1-43.9); Red Blood Count 3.24 M/mm3 (4.6-6.2); White Blood Count 10.8 K/mm3 (4.4-11.0)
--- NOTE | 2017-06-23 04:35 | PCM.PN.INT ---
Subjective: The patient was seen and examined at the bedside this morning. Events from the last 24 hours have been reviewed. The patient is currently afebrile, hemodynamically stable and maintaining appropriate oxygen saturations on room air. The patient was seen by speech therapy yesterday. They recommended pur?ed texture/honey thick liquids. White blood cell count has normalized at this time. Creatinine remains stable. Potassium is low normal this morning. The patient reports feeling well, with the exception of continued low back pain. The patient is requesting to be allowed to eat ice. Objective: The patient's most recent lab work, culture data and imaging studies have all been personally reviewed. Preliminary urine culture is exhibited no growth. Wound culture collected here at [facility] on June 21 revealed the presence of a 2+ gram-negative briana. Gram-negative rods were also isolated from the patient's blood culture collected June 21. Repeat blood cultures are currently pending. Respiratory viral panel was negative. Bacterial wound culture from [facility], dated June 13, revealed the presence of Streptococcus viridans. Surface echocardiogram from July 2015 revealed evidence of stage II diastolic dysfunction with an ejection fraction of 55%. Right ventricular systolic pressure was estimated to be 38 mmHg. He has a known history of MARY JANE, for which he is noncompliant with the use of his home CPAP. He is supposed to be utilizing CPAP with a pressure setting of 11 cm of water, based upon his titration study from June 2015. Pulmonary function testing was also completed in June 2015 revealed the presence of a moderate mixed ventilatory defect with a symmetric reduction in diffusing capacity. Repeat surface echocardiogram completed June 21 revealed severe segmental systolic dysfunction with an ejection fraction of 20%. Right ventricular systolic pressure was estimated to be 41 mmHg. General: Alert, Cooperative, - - Appears uncomfortable with movement HEENT: Atraumatic, PERRLA, Normocephalic Oral: Moist Mucosa, No Gingival or Mucosal Lesions/ Ulcerations Neck: Supple, No Nodes, Trachea Midline, - - Central venous catheter remains in place Lungs: No rhonchi, No wheeze, Diminished, Rales Cardiovascular: Regular rate, Regular Rhythm, Normal S1, Normal S2, No murmurs Abdomen: Bowel Sounds Present, Soft, Non Tender Extremities: No clubbing, No cyanosis, Edema Skin: - - Large lumbar paraspinal ulcer/wound, unchanged. Lymphatic: No Cervical, Supraclavicular, or Inguinal Adenopathy Neurological: Neuro grossly intact Psych/Mental Status: Normal Affect, Appropriate Vital Signs Temp Pulse Resp BP Pulse Ox 97.3 F L 67 14 102/68 98 06/23/17 02:00 06/23/17 02:00 06/23/17 02:00 06/23/17 02:00 06/23/17 02:00 Oxygen Flow Rate 2 Oxygen Delivery Method Room Air Weight: 173 lb 11.588 oz Body Mass Index (BMI) 25.4 Intake and Output for Last 24 Hours 06/21/17 06/22/17 06/23/17 23:59 23:59 23:59 Intake Total 2034 / 2034 774.9 / 774.9 445 / 445 Output Total 450 / 450 840 / 840 225 / 225 Balance 1584 / 1584 -65.1 / -65.1 220 / 220 Labs (Last 48 Hours) 06/21/17 06/21/17 06/21/17 13:05 13:05 13:33 WBC RBC Hgb Hct MCV MCH MCHC RDW RDW Differential Plt Count MPV Neut % (Auto) Absolute Neuts (auto) Total Counted PT INR APTT Sodium Potassium Chloride Carbon Dioxide Anion Gap BUN Creatinine Estim Creat Clear Calc Est GFR (MDRD) Af Amer Est GFR (MDRD) Non-Af BUN/Creatinine Ratio Glucose Hemoglobin A1c Lactic Acid Calcium Total Bilirubin AST ALT Alkaline Phosphatase Troponin I Total Protein Albumin Urine Color Marlyn Urine Clarity Turbid Urine pH 5.0 Ur Specific [place] 1.015 Urine Protein 100 H Urine Glucose (UA) Normal Urine Ketones Negative Urine Occult Blood 250 H Urine Nitrite Negative Urine Bilirubin Negative Urine Urobilinogen Normal Ur Leukocyte Esterase 100 H S.aureus Protein A PCR NEGATIVE MRSA (PCR) Negative Negative POC Glucose 06/21/17 06/21/17 06/21/17 14:00 14:00 16:15 WBC RBC Hgb Hct MCV MCH MCHC RDW RDW Differential Plt Count MPV Neut % (Auto) Absolute Neuts (auto) Total Counted PT 21.1 H INR 1.9 APTT 49.1 H Sodium Potassium Chloride Carbon Dioxide Anion Gap BUN Creatinine Estim Creat Clear Calc Est GFR (MDRD) Af Amer Est GFR (MDRD) Non-Af BUN/Creatinine Ratio Glucose Hemoglobin A1c Lactic Acid 2.8 H Calcium Total Bilirubin AST ALT Alkaline Phosphatase Troponin I 0.71 H* Total Protein Albumin Urine Color Urine Clarity Urine pH Ur Specific [place] Urine Protein Urine Glucose (UA) Urine Ketones Urine Occult Blood Urine Nitrite Urine Bilirubin Urine Urobilinogen Ur Leukocyte Esterase S.aureus Protein A PCR MRSA (PCR) POC Glucose 06/21/17 06/21/17 06/22/17 18:05 18:05 00:00 WBC RBC Hgb Hct MCV MCH MCHC RDW RDW Differential Plt Count MPV Neut % (Auto) Absolute Neuts (auto) Total Counted PT INR APTT Sodium Potassium Chloride Carbon Dioxide Anion Gap BUN Creatinine Estim Creat Clear Calc Est GFR (MDRD) Af Amer Est GFR (MDRD) Non-Af BUN/Creatinine Ratio Glucose Hemoglobin A1c Lactic Acid 2.0 Calcium Total Bilirubin AST ALT Alkaline Phosphatase Troponin I 1.12 H* Total Protein Albumin Urine Color Urine Clarity Urine pH Ur Specific [place] Urine Protein Urine Glucose (UA) Urine Ketones Urine Occult Blood Urine Nitrite Urine Bilirubin Urine Urobilinogen Ur Leukocyte Esterase S.aureus Protein A PCR MRSA (PCR) POC Glucose 133 H 06/22/17 06/22/17 06/22/17 00:30 04:50 04:50 WBC 14.9 H RBC 3.31 L Hgb 10.7 L Hct 32.3 L MCV 97.6 H MCH 32.3 H MCHC 33.1 RDW 15.4 H RDW Differential 54.6 H Plt Count 236 MPV 9.7 Neut % (Auto) Absolute Neuts (auto) Total Counted PT INR APTT Sodium 137 Potassium 3.3 L Chloride 103 Carbon Dioxide 23.0 Anion Gap 11 BUN 70 H Creatinine 2.00 H Estim Creat Clear Calc 31.83 Est GFR (MDRD) Af Amer 42 L Est GFR (MDRD) Non-Af 35 L BUN/Creatinine Ratio 35.0 H Glucose 128 H Hemoglobin A1c Lactic Acid Calcium 8.3 L Total Bilirubin AST ALT Alkaline Phosphatase Troponin I 1.00 H* Total Protein Albumin Urine Color Urine Clarity Urine pH Ur Specific [place] Urine Protein Urine Glucose (UA) Urine Ketones Urine Occult Blood Urine Nitrite Urine Bilirubin Urine Urobilinogen Ur Leukocyte Esterase S.aureus Protein A PCR MRSA (PCR) POC Glucose 06/22/17 06/23/17 06/23/17 06:13 04:20 04:20 WBC Pending RBC Pending Hgb Pending Hct Pending MCV Pending MCH Pending MCHC Pending RDW Pending RDW Differential Pending Plt Count Pending MPV Neut % (Auto) Pending Absolute Neuts (auto) Pending Total Counted Pending PT INR APTT Sodium Pending Potassium Pending Chloride Pending Carbon Dioxide Pending Anion Gap Pending BUN Pending Creatinine Pending Estim Creat Clear Calc Est GFR (MDRD) Af Amer Pending Est GFR (MDRD) Non-Af Pending BUN/Creatinine Ratio Pending Glucose Pending Hemoglobin A1c Lactic Acid Calcium Pending Total Bilirubin Pending AST Pending ALT Pending Alkaline Phosphatase Pending Troponin I Total Protein Pending Albumin Pending Urine Color Urine Clarity Urine pH Ur Specific [place] Urine Protein Urine Glucose (UA) Urine Ketones Urine Occult Blood Urine Nitrite Urine Bilirubin Urine Urobilinogen Ur Leukocyte Esterase S.aureus Protein A PCR MRSA (PCR) POC Glucose 117 H 06/23/17 04:20 WBC RBC Hgb Hct MCV MCH MCHC RDW RDW Differential Plt Count MPV Neut % (Auto) Absolute Neuts (auto) Total Counted PT INR APTT Sodium Potassium Chloride Carbon Dioxide Anion Gap BUN Creatinine Estim Creat Clear Calc Est GFR (MDRD) Af Amer Est GFR (MDRD) Non-Af BUN/Creatinine Ratio Glucose Hemoglobin A1c Pending Lactic Acid Calcium Total Bilirubin AST ALT Alkaline Phosphatase Troponin I Total Protein Albumin Urine Color Urine Clarity Urine pH Ur Specific [place] Urine Protein Urine Glucose (UA) Urine Ketones Urine Occult Blood Urine Nitrite Urine Bilirubin Urine Urobilinogen Ur Leukocyte Esterase S.aureus Protein A PCR MRSA (PCR) POC Glucose Microbiology 06/21/17 13:33 Wound - Other Gram Stain - Final 06/21/17 13:33 Wound - Other Wound Culture - Preliminary Gram negative briana 06/21/17 15:05 Mucosa - Nasopharyngeal Respiratory Panel (PCR) - Final 06/21/17 13:05 Urine Catheter - Garcia Urine Culture - Preliminary Culture exhibits no growth. 06/21/17 14:30 Blood Culture (Wb) - Other Blood Culture - Preliminary Clinical Impression(s) from Imaging Studies Chest X-Ray 06/21/17 09:01 IMPRESSION: 1. Increasing pulmonary congestion. 2. Mild cardiomegaly. Electronically Signed: Kalie Sanabria MD at 9:37 EST , Service support , Brain CT 06/21/17 09:10 IMPRESSION: 1. Chronic involutional changes of the brain. 2. 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 3. No CT evidence of acute intracranial hemorrhage. 4. Possible acute left ethmoid sinus disease. Electronically Signed: Kalie Sanabria MD at 10:30 EST , Service support , Chest X-Ray 06/21/17 14:34 IMPRESSION: 1. Mild cardiomegaly and pulmonary congestion. 2. Appropriate positioning of right-sided central line without evidence for pneumothorax. Electronically Signed: Kalie Sanabria MD at 15:10 EST , Service support , Assessment/Plan Active and Suspected Problems Altered mental status, unspecified (Acute) A-fib (Acute) Sepsis (Acute) Severe sepsis (Acute) wound sepsis of previous wound (Acute) RECOMMENDATIONS: 1. No continuous supplemental IV fluids, given depressed ejection fraction noted on echocardiogram. 2. Vancomycin can be discontinued. Continue cefepime as ordered 3. Continue p.o. amiodarone 4. Continue fentanyl patch for pain control. Oxycodone was discontinued, as the patient reports an intolerance. 5. Electrolyte repletion 6. Continue Eliquis 7. Advance diet per speech therapy recommendations 8. Continue Pepcid 9. Cardiology to assist in the management of his depressed ejection fraction. 10. Central venous catheter can be removed IMPRESSIONS: 1. Severe sepsis secondary to gram negative wound infection and bacteremia The patient did receive supplemental IV fluids initially and stabilized from a hemodynamic perspective. Serum lactate has normalized. Vancomycin has been discontinued. Cefepime will be continued, pending finalized sensitivities. I highly suspect that the patient's supraventricular tachycardia noted on presentation, was the consequence of underlying sepsis. Dr. Cook to evaluate the patient's back wound on Saturday. Continue local wound care. 2. Metabolic/infectious encephalopathy Resolved at this time. We will continue to monitor. CT head was already completed. 3. SVT/NSTEMI/new onset systolic heart failure/history of paroxysmal atrial fibrillation The patient does have a history of paroxysmal atrial fibrillation, for which he is prescribed Eliquis. Repeat echocardiogram completed during this hospital admission revealed a significant change. The patient's ejection fraction fell from approximately 55% in 2016 to 20% on this hospital admission. Cardiology is following. The patient amiodarone has been transition to p.o. It is my suspicion that his SVT as a consequence of his underlying severe sepsis. Unclear if the patient would require an ischemic evaluation during this hospitalization versus repeat of his echocardiogram on an outpatient basis, following resolution of his current infectious process. 4. Acute on chronic kidney disease Improving at this time. Likely secondary to #1 and relative hemodynamic instability. Garcia catheter is in place. Will monitor urine output. If the patient's creatinine and/or urine output worsen over the next 24 hours, nephrology will be consulted. 5. Personal history of mixed ventilatory defect/obstructive sleep apnea/chronic lumbosacral wound/hyperlipidemia Complicates care, management, recovery and prognosis. CPAP can be initiated on a nocturnal basis, pending stability in the patient's clinical state. Wound care is following. Continue fentanyl patch for pain control. This note was generated with [employer] dictation software. It may contain incorrect words, spelling, and punctuation that were not noted in checking the note before signing. DISPOSITION: The patient is medically stable for transfer out of the intensive care unit. Code Visit Inpatient E&M: [id number] [place] [id number]
[2017-06-23 04:41] LABS: POSITIVE COUNT NO; POSITIVE DIFFERENTIAL NO; POSITIVE MORPHOLOGY NO
[2017-06-23 04:43] LABS: ALB/GLOB Ratio 0.4 RATIO (0.9-2.4); AST(SGOT) 60 U/L (15-37); Alanine Aminotransfer ALT/SGPT 33 U/L (16-61); Alkaline Phosphatase 131 U/L (45-117); Anion Gap 9 (5-15); BUN 78 mg/dL (7-18); BUN/Creat Ratio 36.1 RATIO (10-20); Calcium,Total 8.4 mg/dL (8.5-10.1); Chloride 106 mmol/L (98-107); Creatinine, Serum 2.16 mg/dL (0.70-1.30); EST Glomerular Filtration Rate 32 mL/min (>60); Est Glom Filt Rate - Afr Amer 39 mL/min (>60); Estimated Creatinine Clearance 29.47 ml/min; Globulin 5.1 g/dL (2.2-4.2); Glucose 99 mg/dL (74-106); Potassium 3.5 mmol/L (3.5-5.1); Protein, Total 7.1 g/dL (6.4-8.2); Sodium Level 139 mmol/L (136-145)
[2017-06-23] MEDS: 0.9% NaCl Peripheral Flush Adult/Peds IV (05:45)
[2017-06-23] MEDS: CHLORHEXIDINE GLUC 2% CLOTH 1 EACH TOWELETTE TOPICAL (05:48)
[2017-06-23] MEDS: Acetaminophen 325 MG Tablet 650 MG PO ×3 (06:30→19:51)
[2017-06-23 07:31] LABS: Hemoglobin A1c 5.3 % (4.2-6.3)
[2017-06-23] MEDS: Gabapentin 100 MG Capsule PO ×2 (08:16→16:54)
[2017-06-23] MEDS: Aspirin E.C. 81 MG Tablet PO (08:16)
--- NOTE | 2017-06-23 10:34 | PCM.CONS.R ---
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 Last creatinine 1.64 admitted with generalized systemic complaints of headache, thirsty, low urine output and altered mental status found to be in severe sepsis (Fever, tachycardia, tachypnea) and lactic acidosis most probably from wound sepsis due to large lumbar spinal wound with creatine peaked to 2.16 secondary to ischaemia ATN and hemodynamic perturbation with PSVT on acute on CHF r EF 55% stage II diastolic dysfunction with TR and was resuscitated with IVF and arted on IV Zosyn and vancomycin which is changed to cefepime lumbar spinal wound infection.Creatinine stabilized with good UO, Repeat lactic acid is normal. We were consulted for management of BRIANA on CKD III - Allergies Allergies: Allergies sulfamethoxazole [From Bactrim] Allergy (Verified 06/21/17 08:58) Other trimethoprim [From Bactrim] Allergy (Verified 06/21/17 08:58) Other prednisone Adverse Reaction (Verified 06/21/17 08:58) Swelling - Current Medications Current Medications: Current Medications Acetaminophen (Tylenol) 650 mg PO Q6H PRN PRN PRN Reason: pain/fever Amiodarone HCl (Cordarone) 200 mg PO DAILY [facility] Last Admin: 06/22/17 16:40 Dose: 200 mg Apixaban (Eliquis) 2.5 mg PO BID [facility] Last Admin: 06/22/17 21:37 Dose: 2.5 mg Aspirin (Ecotrin) 81 mg PO DAILY@0800 [facility] Last Admin: 06/23/17 08:16 Dose: 81 mg Atorvastatin Calcium (Lipitor) 20 mg PO QHS [facility] Last Admin: 06/22/17 21:37 Dose: 20 mg Chlorhexidine Gluconate () 1 each TOPICAL DAILY [facility] Last Admin: 06/23/17 05:48 Dose: 1 each Famotidine (Pepcid) 20 mg PO DAILY [facility] Last Admin: 06/22/17 10:50 Dose: 20 mg Fentanyl (Duragesic) 25 mcg TRANSDERM. Q3D [facility] Last Admin: 06/22/17 13:52 Dose: 25 mcg Folic Acid (Folic Acid) 1 mg PO QHS [facility] Last Admin: 06/22/17 21:37 Dose: 1 mg Gabapentin (Neurontin) 100 mg PO BIDCM [facility] Last Admin: 06/23/17 08:16 Dose: 100 mg Sodium Chloride () 250 mls @ 15 mls/hr IV .[id number] PRN PRN Reason: SALINE FLUSH Last Admin: 06/22/17 21:38 Dose: 15 mls/hr Sodium Chloride () 250 mls @ 15 mls/hr IV .[id number] PRN PRN Reason: SALINE FLUSH Cefepime HCl 1 gm/ Sodium (Chloride) 50 mls @ 100 mls/hr IV Q12 [facility] Last Admin: 06/22/17 21:37 Dose: 100 mls/hr Magnesium Hydroxide (Milk Of Magnesia) 30 ml PO DAILY PRN PRN PRN Reason: Constipation Magnesium Oxide (Mag-Ox 400) 400 mg PO DAILY [facility] Last Admin: 06/22/17 10:49 Dose: 400 mg Multivitamins/Minerals (Ocuvite) 2 tablet PO DAILY [facility] Last Admin: 06/22/17 10:50 Dose: 2 tablet Psyllium Hydrophilic Mucilloid (Metamucil) 1 packet PO DAILY PRN PRN PRN Reason: CONSTIPATION Senna/Docusate Sodium (Senokot-S, Uma-Colace) 2 tablet PO BID [facility] Last Admin: 06/22/17 21:37 Dose: 2 tablet Sodium Chloride () 5 - 30 ml IV UD PRN PRN Reason: SALINE FLUSH Last Admin: 06/23/17 05:45 Dose: 20 ml - Past Medical History Past Medical History (Chronic Problems): Chronic Problems Open wound of lower back (Chronic) with muscle and bone exposed s/p surgical debridement of abscess s/p lumbar spine surgery Chronic ulcer of right leg with fat layer exposed (Chronic) Lumbar disc disease (Chronic) Edema of both legs (Chronic) Leg swelling (Chronic) History of diverticulitis (Chronic) Hyperlipidemia (Chronic) Back pain at L4-L5 level (Chronic) History of non-Hodgkin's lymphoma (Chronic) Hypertension (Chronic) Shortness of breath (Chronic) Hypoxia (Chronic) History of atrial fibrillation (Chronic) Surgical wound dehiscence (Chronic) Renal insufficiency (Chronic) Soft tissue radionecrosis (Chronic) Ulcer of left heel and midfoot with fat layer exposed (Chronic) Decubitus ulcer, heel, right, unstageable (Chronic) Peripheral vascular disease (Chronic) Edema, lower extremity (Chronic) Malnutrition (Chronic) Pressure ulcer, back, lower (Chronic) Ulcer of right foot with fat layer exposed (Chronic) Decubitus ulcer of right foot, unstageable (Chronic) Peripheral vascular disease (Chronic) Ulcer of right lower extremity with fat layer exposed (Chronic) Tinea unguium (Chronic) - Past Surgical History Surgical History: - - The patient underwent partial colectomy for diverticulitis and splenectomy in 2002. Several months later, and ileostomy, which had been performed at the time of the initial surgery, was reversed. Lumbar L4-[address] Swan at the [facility] on November 02, 2015. - Social History Smoking Status: Former smoker - Family History Maternal History Items: Heart Disease Paternal History Items: Diabetes Review of Systems Constitutional: Reports: Chills Eyes: Reports: Vision Change HEENT: Denies: Head Aches, Sinus Congestion, Sinus Drainage Cardiovascular: Reports: Claudication, Edema, Palpitations Respiratory: Reports: Cough, Shortness of breath upon exertion Gastrointestinal: Reports: Constipation Genitourinary: Denies: Dysuria Musculoskeletal: Denies: Joint Pain, Joint Tenderness Skin: Reports: Wounds - Lumbar wound chronic Neurological: Denies: Numbness, Tingling, Focal weakness Psychiatric: Reports: Anxiety Hematologic/ Lymphatic: Reports: Adenopathy Patient Problems: Active and Suspected Problems Altered mental status, unspecified (Acute) A-fib (Acute) Sepsis (Acute) Severe sepsis (Acute) wound sepsis of previous wound (Acute) - Physical Exam General: Alert, Oriented x3, Cooperative Neck: JVD, Bilateral Lungs: Normal air movement, Rales Cardiovascular: Regular rate Abdomen: Bowel Sounds Present, Soft, Non Tender Musculoskeletal: Muscle Wasting, Tenderness, - - wound Neurological: Motor Exam 5/5 strength throughout Psych/Mental Status: Normal Affect, Appropriate Vital Signs Temp Pulse Resp BP Pulse Ox 97.3 F L 70 17 108/73 100 06/23/17 09:00 06/23/17 09:00 06/23/17 09:00 06/23/17 09:00 06/23/17 09:00 Oxygen Flow Rate 2 Oxygen Delivery Method Room Air Weight: 76.9 kg Body Mass Index (BMI) 25.4 Intake and Output for Last 24 Hours 06/21/17 06/22/17 06/23/17 23:59 23:59 23:59 Intake Total 4 / 2034 774.9 / 774.9 879.6 / 879.6 Output Total 450 / 450 840 / 840 375 / 375 Balance 1584 / 1584 -65.1 / -65.1 504.6 / 504.6 Microbiology Past 72 Hours 06/21/17 13:05 Urine Culture - Final Urine Catheter - Garcia Culture exhibits no growth. 06/21/17 13:33 Gram Stain - Final Wound - Other Wound Culture - Final Pasteurella multocida 06/21/17 15:05 Respiratory Panel (PCR) - Final Mucosa - Nasopharyngeal 06/21/17 14:30 Blood Culture - Preliminary Blood Culture (Wb) - Other Laboratory Tests Past 24 Hrs 06/23/17 06/23/17 06/23/17 04:20 04:20 04:20 WBC 10.8 RBC 3.24 L Hgb 10.3 L Hct 32.1 L MCV 99.1 H MCH 31.8 MCHC 32.1 RDW 16.0 H RDW Differential 58.3 H Plt Count 241 MPV 10.2 Immature Gran % (Auto) 0.300 Neut % (Auto) 79.5 H Lymph % (Auto) 7.4 L Wilkes % (Auto) 12.5 H Eos % (Auto) 0.2 Baso % (Auto) 0.1 Absolute Neuts (auto) 8.6 H Absolute Lymphs (auto) 0.80 L Total Counted Not Reportable Sodium 139 Potassium 3.5 Chloride 106 Carbon Dioxide 24.0 Anion Gap 9 BUN 78 H Creatinine 2.16 H Estim Creat Clear Calc 29.47 Est GFR (MDRD) Af Amer 39 L Est GFR (MDRD) Non-Af 32 L BUN/Creatinine Ratio 36.1 H Glucose 99 Hemoglobin A1c 5.3 Calcium 8.4 L Total Bilirubin 0.50 AST 60 H ALT 33 Alkaline Phosphatase 131 H Total Protein 7.1 Albumin 2.0 L Globulin 5.1 H Albumin/Globulin Ratio 0.4 L Assessment/Plan Active and Suspected Problems Altered mental status, unspecified (Acute) A-fib (Acute) Sepsis (Acute) Severe sepsis (Acute) wound sepsis of previous wound (Acute) Non oliguric BRIANA ATN on CKDIIIa BScr 1.6 now 2.16 with good UO and solute plateau-recommend IVF and and hold teetee and ARB Keep MAP>60 and avoid IV contrast-sarted on IV Zosyn and vancomycin which is changed to cefepime. Repeat lactic acid is normal. Recommend dose cefepime on eGFR <30ml/hrs. Hold metformin manage DM-2 with SSI.No need of [employer]ICE. Lumbar wound infection on abx- agree for debridement HTN tenuous hemodynamics hold all antihypertensive PRN Labetalol if SBP>160 Anemia hold IV iron in setting of infection no role of epo in acute setting DM-2 SSI
[2017-06-23] MEDS: Magnesium Oxide 400 MG Tablet PO (10:46)
[2017-06-23] MEDS: Senna/Docusate Sodium 1 Tablet 2 TABLET PO ×2 (10:46→21:13)
--- NOTE | 2017-06-23 10:46 | CON.PCM_ITS ---
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 Last creatinine 1.64 admitted with generalized systemic complaints of headache, thirsty, low urine output and altered mental status found to be in severe sepsis (Fever, tachycardia, tachypnea) and lactic acidosis most probably from wound sepsis due to large lumbar spinal wound with creatine peaked to 2.16 secondary to ischaemia ATN and hemodynamic perturbation with PSVT on acute on CHF r EF 55% stage II diastolic dysfunction with TR and was resuscitated with IVF and arted on IV Zosyn and vancomycin which is changed to cefepime lumbar spinal wound infection.Creatinine stabilized with good UO, Repeat lactic acid is normal. We were consulted for management of BRIANA on CKD III - Allergies Allergies: Allergies sulfamethoxazole [From Bactrim] Allergy (Verified 06/21/17 08:58) Other trimethoprim [From Bactrim] Allergy (Verified 06/21/17 08:58) Other prednisone Adverse Reaction (Verified 06/21/17 08:58) Swelling - Current Medications Current Medications: Current Medications Acetaminophen (Tylenol) 650 mg PO Q6H PRN PRN PRN Reason: pain/fever Amiodarone HCl (Cordarone) 200 mg PO DAILY [facility] Last Admin: 06/22/17 16:40 Dose: 200 mg Apixaban (Eliquis) 2.5 mg PO BID [facility] Last Admin: 06/22/17 21:37 Dose: 2.5 mg Aspirin (Ecotrin) 81 mg PO DAILY@0800 [facility] Last Admin: 06/23/17 08:16 Dose: 81 mg Atorvastatin Calcium (Lipitor) 20 mg PO QHS [facility] Last Admin: 06/22/17 21:37 Dose: 20 mg Chlorhexidine Gluconate () 1 each TOPICAL DAILY [facility] Last Admin: 06/23/17 05:48 Dose: 1 each Famotidine (Pepcid) 20 mg PO DAILY [facility] Last Admin: 06/22/17 10:50 Dose: 20 mg Fentanyl (Duragesic) 25 mcg TRANSDERM. Q3D [facility] Last Admin: 06/22/17 13:52 Dose: 25 mcg Folic Acid (Folic Acid) 1 mg PO QHS [facility] Last Admin: 06/22/17 21:37 Dose: 1 mg Gabapentin (Neurontin) 100 mg PO BIDCM [facility] Last Admin: 06/23/17 08:16 Dose: 100 mg Sodium Chloride () 250 mls @ 15 mls/hr IV .[id number] PRN PRN Reason: SALINE FLUSH Last Admin: 06/22/17 21:38 Dose: 15 mls/hr Sodium Chloride () 250 mls @ 15 mls/hr IV .[id number] PRN PRN Reason: SALINE FLUSH Cefepime HCl 1 gm/ Sodium (Chloride) 50 mls @ 100 mls/hr IV Q12 [facility] Last Admin: 06/22/17 21:37 Dose: 100 mls/hr Magnesium Hydroxide (Milk Of Magnesia) 30 ml PO DAILY PRN PRN PRN Reason: Constipation Magnesium Oxide (Mag-Ox 400) 400 mg PO DAILY [facility] Last Admin: 06/22/17 10:49 Dose: 400 mg Multivitamins/Minerals (Ocuvite) 2 tablet PO DAILY [facility] Last Admin: 06/22/17 10:50 Dose: 2 tablet Psyllium Hydrophilic Mucilloid (Metamucil) 1 packet PO DAILY PRN PRN PRN Reason: CONSTIPATION Senna/Docusate Sodium (Senokot-S, Uma-Colace) 2 tablet PO BID [facility] Last Admin: 06/22/17 21:37 Dose: 2 tablet Sodium Chloride () 5 - 30 ml IV UD PRN PRN Reason: SALINE FLUSH Last Admin: 06/23/17 05:45 Dose: 20 ml - Past Medical History Past Medical History (Chronic Problems): Chronic Problems Open wound of lower back (Chronic) with muscle and bone exposed s/p surgical debridement of abscess s/p lumbar spine surgery Chronic ulcer of right leg with fat layer exposed (Chronic) Lumbar disc disease (Chronic) Edema of both legs (Chronic) Leg swelling (Chronic) History of diverticulitis (Chronic) Hyperlipidemia (Chronic) Back pain at L4-L5 level (Chronic) History of non-Hodgkin's lymphoma (Chronic) Hypertension (Chronic) Shortness of breath (Chronic) Hypoxia (Chronic) History of atrial fibrillation (Chronic) Surgical wound dehiscence (Chronic) Renal insufficiency (Chronic) Soft tissue radionecrosis (Chronic) Ulcer of left heel and midfoot with fat layer exposed (Chronic) Decubitus ulcer, heel, right, unstageable (Chronic) Peripheral vascular disease (Chronic) Edema, lower extremity (Chronic) Malnutrition (Chronic) Pressure ulcer, back, lower (Chronic) Ulcer of right foot with fat layer exposed (Chronic) Decubitus ulcer of right foot, unstageable (Chronic) Peripheral vascular disease (Chronic) Ulcer of right lower extremity with fat layer exposed (Chronic) Tinea unguium (Chronic) - Past Surgical History Surgical History: - - The patient underwent partial colectomy for diverticulitis and splenectomy in 2002. Several months later, and ileostomy, which had been performed at the time of the initial surgery, was reversed. Lumbar L4-[address] Swan at the [facility] on November 02, 2015. - Social History Smoking Status: Former smoker - Family History Maternal History Items: Heart Disease Paternal History Items: Diabetes Review of Systems Constitutional: Reports: Chills Eyes: Reports: Vision Change HEENT: Denies: Head Aches, Sinus Congestion, Sinus Drainage Cardiovascular: Reports: Claudication, Edema, Palpitations Respiratory: Reports: Cough, Shortness of breath upon exertion Gastrointestinal: Reports: Constipation Genitourinary: Denies: Dysuria Musculoskeletal: Denies: Joint Pain, Joint Tenderness Skin: Reports: Wounds - Lumbar wound chronic Neurological: Denies: Numbness, Tingling, Focal weakness Psychiatric: Reports: Anxiety Hematologic/ Lymphatic: Reports: Adenopathy Patient Problems: Active and Suspected Problems Altered mental status, unspecified (Acute) A-fib (Acute) Sepsis (Acute) Severe sepsis (Acute) wound sepsis of previous wound (Acute) - Physical Exam General: Alert, Oriented x3, Cooperative Neck: JVD, Bilateral Lungs: Normal air movement, Rales Cardiovascular: Regular rate Abdomen: Bowel Sounds Present, Soft, Non Tender Musculoskeletal: Muscle Wasting, Tenderness, - - wound Neurological: Motor Exam 5/5 strength throughout Psych/Mental Status: Normal Affect, Appropriate Vital Signs Temp Pulse Resp BP Pulse Ox 97.3 F L 70 17 108/73 100 06/23/17 09:00 06/23/17 09:00 06/23/17 09:00 06/23/17 09:00 06/23/17 09:00 Oxygen Flow Rate 2 Oxygen Delivery Method Room Air Weight: 76.9 kg Body Mass Index (BMI) 25.4 Intake and Output for Last 24 Hours 06/21/17 06/22/17 06/23/17 23:59 23:59 23:59 Intake Total 4 / 2034 774.9 / 774.9 879.6 / 879.6 Output Total 450 / 450 840 / 840 375 / 375 Balance 1584 / 1584 -65.1 / -65.1 504.6 / 504.6 Microbiology Past 72 Hours 06/21/17 13:05 Urine Culture - Final Urine Catheter - Garcia Culture exhibits no growth. 06/21/17 13:33 Gram Stain - Final Wound - Other Wound Culture - Final Pasteurella multocida 06/21/17 15:05 Respiratory Panel (PCR) - Final Mucosa - Nasopharyngeal 06/21/17 14:30 Blood Culture - Preliminary Blood Culture (Wb) - Other Laboratory Tests Past 24 Hrs 06/23/17 06/23/17 06/23/17 04:20 04:20 04:20 WBC 10.8 RBC 3.24 L Hgb 10.3 L Hct 32.1 L MCV 99.1 H MCH 31.8 MCHC 32.1 RDW 16.0 H RDW Differential 58.3 H Plt Count 241 MPV 10.2 Immature Gran % (Auto) 0.300 Neut % (Auto) 79.5 H Lymph % (Auto) 7.4 L [place] % (Auto) 12.5 H Eos % (Auto) 0.2 Baso % (Auto) 0.1 Absolute Neuts (auto) 8.6 H Absolute Lymphs (auto) 0.80 L Total Counted Not Reportable Sodium 139 Potassium 3.5 Chloride 106 Carbon Dioxide 24.0 Anion Gap 9 BUN 78 H Creatinine 2.16 H Estim Creat Clear Calc 29.47 Est GFR (MDRD) Af Amer 39 L Est GFR (MDRD) Non-Af 32 L BUN/Creatinine Ratio 36.1 H Glucose 99 Hemoglobin A1c 5.3 Calcium 8.4 L Total Bilirubin 0.50 AST 60 H ALT 33 Alkaline Phosphatase 131 H Total Protein 7.1 Albumin 2.0 L Globulin 5.1 H Albumin/Globulin Ratio 0.4 L Assessment/Plan Active and Suspected Problems Altered mental status, unspecified (Acute) A-fib (Acute) Sepsis (Acute) Severe sepsis (Acute) wound sepsis of previous wound (Acute) Non oliguric BRIANA ATN on CKDIIIa BScr 1.6 now 2.16 with good UO and solute plateau-recommend IVF and and hold teetee and ARB Keep MAP>60 and avoid IV contrast -sarted on IV Zosyn and vancomycin which is changed to cefepime. Repeat lactic acid is normal. Recommend dose cefepime on eGFR <30ml/hrs. Hold metformin manage DM-2 with SSI.No need of BUSINESS COORDINATOR. Lumbar wound infection on abx- agree for debridement HTN tenuous hemodynamics hold all antihypertensive PRN Labetalol if SBP>160 Anemia hold IV iron in setting of infection no role of epo in acute setting DM-2 SSI
[2017-06-23] MEDS: Famotidine 20 MG Tablet PO (10:47)
[2017-06-23] MEDS: Amiodarone 200 MG Tablet PO (10:47)
[2017-06-23] MEDS: APIXABAN 2.5 MG TABLET PO ×2 (10:47→21:13)
[2017-06-23] MEDS: Cefepime 1 GM in 0.9% NS 50 ML Minibag Q12 IV ×2 (10:59→21:14)
--- NOTE | 2017-06-23 11:57 | PN_ITS ---
Patient Problems: Active and Suspected Problems Altered mental status, unspecified (Acute) A-fib (Acute) Sepsis (Acute) Severe sepsis (Acute) wound sepsis of previous wound (Acute) Subjective: Seen and examined in the morning and afternoon Patient is more awake and alert. Garcia catheter drains dark yellow urine. Total urine output about about 500 mL was examining the patient. Troponin slightly elevated. Patient is currently hemodynamically stable. In afternoon, nurse notified me that there is tenderness over the right sternoclavicular joint. Right clavicular area at the base of neck. Point tenderness present on the right medial end of clavicle for area just superior to medial end of right clavicle. Mild redness present. Denies pain until touched or pressed. Objective: General: Alert, Cooperative, Confused, Lethargic HEENT: Atraumatic, PERRLA, EOMI, Normocephalic Oral: Moist Mucosa Neck: Supple, No JVD, Negative Carotid Bruits, - - Right IJ central venous catheter present. There is tenderness and redness over the area just superior to right sternoclavicular joint. Lungs: Clear to auscultation, No wheeze, Diminished, Rales - Occasional fine Cardiovascular: Regular rate, Regular Rhythm, Normal S1, Normal S2, No murmurs Abdomen: Bowel Sounds Present, Soft, Non Tender, Non-Distended Extremities: No edema, Capillary Refill Less than 3 Seconds Skin: Ulcer/ Wound - Large deep sacral decubitus with floor covered with slough in sacral region about 15 cm. As per the wound nurse, Tatyana it is from the previous lumbar spinal surgery BUT not decubitus Musculoskeletal: No Tenderness to Palpation of Joints or Extremities, Arthritic Changes Neurological: Cranial nerves II-XII grossly intact Psych/Mental Status: Normal Affect, Appropriate Vitals/I&O's: Vital Signs Temp Pulse Resp BP Pulse Ox 97.3 F L 67 17 108/73 100 06/23/17 09:00 06/23/17 11:00 06/23/17 09:00 06/23/17 09:00 06/23/17 09:00 Oxygen Flow Rate 2 Oxygen Delivery Method Mechanical Ventilator Weight: 169 lb 8.568 oz Body Mass Index (BMI) 25.4 Intake and Output for Last 24 Hours 06/21/17 06/22/17 06/23/17 23:59 23:59 23:59 Intake Total 2033 / 2033 774.9 / 774.9 1247.6 / 1247.6 Output Total 450 / 450 840 / 840 500 / 500 Balance 1584 / 1584 -65.1 / -65.1 747.6 / 747.6 Microbiology Past 72 Hours 06/21/17 13:05 Urine Catheter - Garcia Urine Culture - Final Culture exhibits no growth. 06/21/17 13:33 Wound - Other Gram Stain - Final 06/21/17 13:33 Wound - Other Wound Culture - Final Pasteurella multocida 06/21/17 15:05 Mucosa - Nasopharyngeal Respiratory Panel (PCR) - Final 06/21/17 14:30 Blood Culture (Wb) - Other Blood Culture - Preliminary Laboratory Results 06/23/17 04:20: WBC 10.8, RBC 3.24 L, Hgb 10.3 L, Hct 32.1 L, MCV 99.1 H, MCH 31.8, MCHC 32.1, RDW 16.0 H, RDW Differential 58.3 H, Plt Count 241, MPV 10.2, Immature Gran % (Auto) 0.300, Neut % (Auto) 79.5 H, Lymph % (Auto) 7.4 L, [place] % (Auto) 12.5 H, Eos % (Auto) 0.2, Baso % (Auto) 0.1, Absolute Neuts (auto) 8.6 H, Absolute Lymphs (auto) 0.80 L, Total Counted Not Reportable 06/23/17 04:20: Sodium 139, Potassium 3.5, Chloride 106, Carbon Dioxide 24.0, Anion Gap 9, BUN 78 H, Creatinine 2.16 H, Estim Creat Clear Calc 29.47, Est GFR (MDRD) Af Amer 39 L, Est GFR (MDRD) Non-Af 32 L, BUN/Creatinine Ratio 36.1 H, Glucose 99, Calcium 8.4 L, Total Bilirubin 0.50, AST 60 H, ALT 33, Alkaline Phosphatase 131 H, Total Protein 7.1, Albumin 2.0 L, Globulin 5.1 H, Albumin/ Globulin Ratio 0.4 L 06/23/17 04:20: Hemoglobin A1c 5.3 Current Medications Acetaminophen (Tylenol) 650 mg PO Q6H PRN PRN PRN Reason: pain/fever Amiodarone HCl (Cordarone) 200 mg PO DAILY [facility] Last Admin: 06/23/17 10:47 Dose: 200 mg Apixaban (Eliquis) 2.5 mg PO BID [facility] Last Admin: 06/23/17 10:47 Dose: 2.5 mg Aspirin (Ecotrin) 81 mg PO DAILY@0800 [facility] Last Admin: 06/23/17 08:16 Dose: 81 mg Atorvastatin Calcium (Lipitor) 20 mg PO QHS [facility] Last Admin: 06/22/17 21:37 Dose: 20 mg Chlorhexidine Gluconate () 1 each TOPICAL DAILY [facility] Last Admin: 06/23/17 05:48 Dose: 1 each Famotidine (Pepcid) 20 mg PO DAILY [facility] Last Admin: 06/23/17 10:47 Dose: 20 mg Fentanyl (Duragesic) 25 mcg TRANSDERM. Q3D [facility] Last Admin: 06/22/17 13:52 Dose: 25 mcg Folic Acid (Folic Acid) 1 mg PO QHS [facility] Last Admin: 06/22/17 21:37 Dose: 1 [facility] Last Admin: 06/23/17 08:16 Dose: 100 mg Sodium Chloride () 250 mls @ 15 mls/hr IV .[id number] PRN PRN Reason: SALINE FLUSH Last Admin: 06/22/17 21:38 Dose: 15 mls/hr Sodium Chloride () 250 mls @ 15 mls/hr IV .[id number] PRN PRN Reason: SALINE FLUSH Cefepime HCl 1 gm/ Sodium (Chloride) 50 mls @ 100 mls/hr IV Q12 [facility] Last Admin: 06/23/17 10:59 Dose: 100 mls/hr Magnesium Hydroxide (Milk Of Magnesia) 30 ml PO DAILY PRN PRN PRN Reason: Constipation Magnesium Oxide (Mag-Ox 400) 400 mg PO DAILY [facility] Last Admin: 06/23/17 10:46 Dose: 400 mg Multivitamins/Minerals (Ocuvite) 2 tablet PO DAILY [facility] Last Admin: 06/23/17 10:47 Dose: 2 tablet Psyllium Hydrophilic Mucilloid (Metamucil) 1 packet PO DAILY PRN PRN PRN Reason: CONSTIPATION Senna/Docusate Sodium (Senokot-S, Uma-Colace) 2 tablet PO BID [facility] Last Admin: 06/23/17 10:46 Dose: 2 tablet Sodium Chloride () 5 - 30 ml IV UD PRN PRN Reason: SALINE FLUSH Last Admin: 06/23/17 05:45 Dose: 20 ml Assessment/Plan Active and Suspected Problems Altered mental status, unspecified (Acute) A-fib (Acute) Sepsis (Acute) Severe sepsis (Acute) wound sepsis of previous wound (Acute) The patient is a 72 year old M with multiple comorbidities as listed above was sent to ER by home health nurse when patient was not feeling well and generalized systemic complaints of headache, thirsty, low urine output and altered mental status. The EMS EKG shows PSVT at 1 85 bpm, RBBB, LAFB with left axis deviation. In the ER, he was found to have PSVT with heart rate 1 90/min, respiratory rate 40/ min. The patient had adenosine 6 mg and then 12 mg IV patient distal sinus tachycardia and then again PSVT and finally was given DC cardioversion 150 under etomidate sedation. Last EKG shows normal sinus rhythm at 73 bpm with QRS duration 136 ms. Patient has history of paroxysmal A. fib and on Eliquis. Chest x-ray shows peribronchial cuffing and mild hilar congestion but overall I feel patient is dehydrated with low urine output. As per the patient and his he has having low urine output, dark yellow in color for last 3-4 days and patient is thirsty.. Patient was given Lasix 40 mg IV in the ER. Started on IV Cardizem drip. Besides that he has large sacral decubitus ulcer covered with slough and has low -grade fever WITH chills at home. He was recommended by wound center, [facility] to go to ER for positive wound culture, drawn a week ago. Preliminary blood work shows lactic acid 3.0, creatinine 2.16, BUN 67 again suggestive of dehydration with prerenal azotemia. Patient has leukocytosis with left shift. ABG done in ER shows 7.51/24/82 on 2 L of oxygen suggestive of respiratory alkalosis most probably from tachypnea. Patient is admitted in ICU. 1. Severe sepsis (Fever, tachycardia, tachypnea) and lactic acidosis most probably from gram-negative, postural multocida wound sepsis due to large lumbar spinal wound covered with slough, from previous lumbar spinal surgery; present on admission, chronic in nature, not decubitus ulcer: Wound care nurse and plastic surgeon consulted. Discussed with the wound nurse, Tatyana. The patient had lumbar spinal surgery approximately 1 year ago at [facility], [place]. He had postoperative complication with abscess status post debridement on 2016 at [facility] and had wound VAC. Patient had wound culture in [facility] about a week ago and was called at wound culture is positive and therefore patient was sent to ER for antibiotic. Patient follows wound center in [facility] home health nurse changes the dressing. Started on IV Zosyn and vancomycin which is changed to cefepime. Repeat lactic acid is normal. Wound culture done here shows preliminary gram-negative briana 2+. Respiratory panel negative. Needs wound debridement when patient is more stable. Nutritional support. 2. Chronic systolic and diastolic heart failure with severe LV systolic dysfunction EF 20%: Patient had last echo in July 2015 and reported as EF 55% with moderate to stage II diastolic dysfunction. No regional wall motion abnormalities. Left atrium mildly enlarged. Normal right atrium. Mildly dilated right ventricle with mild global right ventricular systolic dysfunction. Mild TR, RVSP 38 mmHg. Mild diffuse aortic valve calcification, aortic sclerosis but no stenosis. Repeat cardiac cath on June 21, 2017 shows EF 20% with severe segmental systolic dysfunction: Akinetic mid anteroseptal, mid inferior, mid posterior and mid inferoseptal and severely hypokinetic mid anterior and basal anteroseptal and admission details in echo report. RVSP 41 mmHg with mild TR. Moderate focal aortic valve calcification with mild aortic valve stenosis. Left atrium moderately enlarged. Right atrium mildly enlarged. On hemodynamic monitoring with strict intake and output. Possible hematoma/infected hematoma, just superior to right sternoclavicular joint and the base of neck: Discussed with Dr. Poon. Ultrasound is not available today. Right neck CT scan without contrast ordered. Acute encephalopathy probably has baseline mild cognitive impairment/dementia with generalized weakness, consistent with metabolic/infectious encephalopathy: Improved today. Treat the underlying cause. IV fluid discontinued. 3. Narrow complex tachycardia, PSVT converted to normal sinus rhythm with elevated troponin/non-ST elevation SC most likely demand ischemia from underlying coronary artery disease with hypoperfusion from sepsis: Baseline arrhythmia of paroxysmal A. fib on Eliquis. Currently, normal sinus rhythm. Patient received Lovenox 1 mg/kg body weight 1 dose in ER. Continue Eliquis 2.5 mg twice daily. Cardizem drip discontinued. Metoprolol discontinued. On amiodarone. 4. Acute kidney injury on CKD stage III, multiple etiology including prerenal/ ATN from sepsis: Patient baseline creatinine varies from 1.58-1.81. Last creatinine 1.May 1.64. Currently 2.16. Major strict input and output. [facility] has been consulted. Kidney function slightly improved. 5. Severe protein calorie malnutrition: As per the patient's , his body weight was 225 pound last 2016 currently 175. Lost about 50 pounds in last 7-8 months. Pre-albumin, CRP ordered. Patient is consulted. Low albumin 1.6 in October 2016. 6. Diabetes mellitus type 2 with uncontrolled hyperglycemia: Patient glucose is 143. To check before meals and at bedtime cover with NovoLog sliding scale. A1c tomorrow a.m. 7. Multiple comorbidities including chronic diastolic heart failure, lumbar disc disease, chronic venous insufficiency, peripheral vascular disease, history of decubitus ulcer of right foot in the past, dyslipidemia, history of diverticulitis: Patient also has obstructive sleep apnea with history of mixed ventilatory defect. If needed CPAP can be initiated at night. Multiple comorbidities complicates the present care. Guarded prognosis. Advanced directive: Discussed with the patient . Patient does not have living will/advanced directive. For now patient wants full code. DVT prophylaxis: On Eliquis The patient is hemodynamically stable to transfer to floor. Clinical Impression(s) from Imaging Studies Chest X-Ray 06/21/17 09:01 IMPRESSION: 1. Increasing pulmonary congestion. 2. Mild cardiomegaly. Electronically Signed: Kalie Sanabria MD at 9:37 EST , Service support , Brain CT 06/21/17 09:10 IMPRESSION: 1. Chronic involutional changes of the brain. 2. 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 3. No CT evidence of acute intracranial hemorrhage. 4. Possible acute left ethmoid sinus disease. Microbiology Past 72 Hours 06/21/17 13:05 Urine Catheter - Garcia Urine Culture - Final Culture exhibits no growth. 06/21/17 13:33 Wound - Other Gram Stain - Final 06/21/17 13:33 Wound - Other Wound Culture - Final Pasteurella multocida 06/21/17 15:05 Mucosa - Nasopharyngeal Respiratory Panel (PCR) - Final 06/21/17 14:30 Blood Culture (Wb) - Other Blood Culture - Preliminary Laboratory Results 06/23/17 04:20: WBC 10.8, RBC 3.24 L, Hgb 10.3 L, Hct 32.1 L, MCV 99.1 H, MCH 31.8, MCHC 32.1, RDW 16.0 H, RDW Differential 58.3 H, Plt Count 241, MPV 10.2, Immature Gran % (Auto) 0.300, Neut % (Auto) 79.5 H, Lymph % (Auto) 7.4 L, [place] % (Auto) 12.5 H, Eos % (Auto) 0.2, Baso % (Auto) 0.1, Absolute Neuts (auto) 8.6 H, Absolute Lymphs (auto) 0.80 L, Total Counted Not Reportable 06/23/17 04:20: Sodium 139, Potassium 3.5, Chloride 106, Carbon Dioxide 24.0, Anion Gap 9, BUN 78 H, Creatinine 2.16 H, Estim Creat Clear Calc 29.47, Est GFR (MDRD) Af Amer 39 L, Est GFR (MDRD) Non-Af 32 L, BUN/Creatinine Ratio 36.1 H, Glucose 99, Calcium 8.4 L, Total Bilirubin 0.50, AST 60 H, ALT 33, Alkaline Phosphatase 131 H, Total Protein 7.1, Albumin 2.0 L, Globulin 5.1 H, Albumin/ Globulin Ratio 0.4 L 06/23/17 04:20: Hemoglobin A1c 5.3 Code Visit Inpatient E&M: 48335 Subs Hosp L3
--- NOTE | 2017-06-23 13:05 | PCM.PN.CARD ---
Subjectve: No complaints. Sitting up in bed. Objective: Vital Signs Temp Pulse Resp BP Pulse Ox 97.6 F L 66 17 118/75 99 06/23/17 12:00 06/23/17 12:00 06/23/17 12:00 06/23/17 12:00 06/23/17 12:00 Oxygen Flow Rate 2 Oxygen Delivery Method Room Air Weight: 76.9 kg Body Mass Index (BMI) 25.4 Intake and Output for Last 24 Hours 06/21/17 06/22/17 06/23/17 23:59 23:59 23:59 Intake Total 2033 / 4 774.9 / 774.9 1247.6 / 1247.6 Output Total 450 / 450 840 / 840 500 / 500 Balance 1584 / 1584 -65.1 / -65.1 747.6 / 747.6 General: Awake, Alert, No Acute Distress Oral: Moist Mucosa Neck: Supple Lungs: - - Few bibasilar crepitations Abdomen: Bowel Sounds Present, Soft Extremities: No edema Neurological: No Focal Motor or Sensory Deficit 06/23/17 04:20: WBC 10.8, RBC 3.24 L, Hgb 10.3 L, Hct 32.1 L, MCV 99.1 H, MCH 31.8, MCHC 32.1, RDW 16.0 H, RDW Differential 58.3 H, Plt Count 241, MPV 10.2, Immature Gran % (Auto) 0.300, Neut % (Auto) 79.5 H, Lymph % (Auto) 7.4 L, [place] % (Auto) 12.5 H, Eos % (Auto) 0.2, Baso % (Auto) 0.1, Absolute Neuts (auto) 8.6 H, Total Counted Not Reportable 06/23/17 04:20: Sodium 139, Potassium 3.5, Chloride 106, Carbon Dioxide 24.0, Anion Gap 9, BUN 78 H, Creatinine 2.16 H, Est GFR (MDRD) Af Amer 39 L, Est GFR (MDRD) Non-Af 32 L, BUN/Creatinine Ratio 36.1 H, Glucose 99, Calcium 8.4 L, Total Bilirubin 0.50 06/23/17 04:20: Hemoglobin A1c 5.3 Rhythm: Normal sinus EKG: ECHO: Stress Test: Cardiac Cath: PCI: CT Surgery: Holter monitor: EPS: PPM: CXR: Chest CT Scan: Assessment/Plan 1. Non-ST elevation myocardial infarction. Likely demand phenomenon on underlying CAD with hypoperfusion from sepsis. Patient asymptomatic. Start on low-dose aspirin 2. Severe LV systolic dysfunction. Ejection fraction 20%. This could be a transient phenomenon with his sepsis syndrome. Need repeat echocardiogram at a later stage once his current medical situation is improved. Likely as outpatient. No beta-blockers or MABEL inhibitors at present because of tenuous blood pressure. Avoid fluid volume overload 3. Paroxysmal atrial fibrillation. Started on p.o. amiodarone to keep in normal sinus rhythm. Continue Eliquis 4. Sepsis/septic shock. Resolved. Growing gram-negative rods in his blood. Also growing cultures from back wound. Manage as per internal medicine and intensive care 5. Renal insufficiency. Acute on chronic. Nephrology on consult
--- NOTE | 2017-06-23 13:15 | CT_ITS ---
STUDY: CT SOFT TISSUE NECK WITHOUT CONTRAST REASON FOR EXAM: Male, 72 years old. Hematoma right sternoclavicular joint. RADIATION DOSAGE (If Supplied By Facility): CTDIvol = ( 19.23 ) mGy, DLP = ( 431.97 ) mGycm TECHNIQUE: The patient was scanned in a multi-detector CT scanner. High resolution transaxial imaging was performed without the administration of intravenous contrast material. Sagittal and coronal images were reconstructed. Individualized dose optimization techniques were used for this CT. COMPARISON: None. FINDINGS: Thickening with fluid distention of the right sternoclavicular joint due to osteoarthropathy. Normal left sternoclavicular joint. Right IJ approach central line catheter in place and the tip is directed down towards the superior vena cava. Normal bilateral parotid glands. Normal bilateral schedule planning manager spaces. Normal bilateral parapharyngeal spaces. Atherosclerotic calcifications of the distal common carotid arteries extending to the common carotid bifurcations. No suspicious mass in both carotid sheaths. Normal bilateral sublingual and submandibular glands and spaces. Normal visualized nasopharynx. Symmetrical calcifications of both torus tubarius. Normal retropharyngeal space. Normal perivertebral space. Normal visualized bilateral faucial tonsils. The visualized tongue, tongue base and oropharynx are normal. The visualized cervical lymph nodes (levels I-) are within normal size limits, and maintain normal morphology. There is no demonstrated solid or cystic mass lesion. Normal epiglottis, bilateral vallecula and hypopharynx. The pre-epiglottic and paraglottic adipose spaces are normal. Normal visualized bilateral piriform sinuses, aryepiglottic folds, vocal cords, and arytenoid-cricoid articulations. Normal subglottic trachea. Normal bilateral lobes of the thyroid gland. Normal visualized pulmonary apices. Normal visualized paranasal sinuses. Pronounced disc height narrowing at C5-C6 and C6-C7 disc space levels with minimal anterior and posterior marginal spurs. Mild C4-C5 disc space height narrowing. No acute osseous abnormality. CT/Soft Tissue Neck without Contr IMPRESSION: 1. 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 2. No CT evidence of any suspicious mass in the suprahyoid neck and infrahyoid neck. 3. Atherosclerotic calcifications of both carotid arteries, both common carotid bifurcations in both internal carotid arteries. Additional atherosclerotic calcifications of the innominate artery and left subclavian artery. 4. Pronounced degenerative disc space height narrowing at C5-C6 and C6-C7 disc space levels with minimal anterior and posterior marginal spurs. 5. Mild C4-C5 degenerative disc space height narrowing. Electronically Signed: Otto Renteria MD at 15:56 EST , Service support ,
[2017-06-23] MEDS: Ibuprofen 400 MG Tablet PO (18:05)
[2017-06-23] MEDS: Atorvastatin Calcium 20 MG Tablet PO (21:13)
[2017-06-23] MEDS: Folic Acid 1 MG Tablet PO (21:13)
[2017-06-24] VITALS (11 sets, daily range): BP systolic 108–128; BP diastolic 56–66; PULSE 56–84; RESP 17–18; TEMP 35.6–36.8; O2SAT 94–100
[2017-06-24] MEDS: Acetaminophen 325 MG Tablet 650 MG PO ×3 (02:51→14:46)
[2017-06-24] MEDS: Ibuprofen 400 MG Tablet PO (05:36)
--- NOTE | 2017-06-24 08:18 | PCM.PROGNOTE ---
Patient Problems: Active and Suspected Problems Altered mental status, unspecified (Acute) A-fib (Acute) Sepsis (Acute) Severe sepsis (Acute) wound sepsis of previous wound (Acute) Subjective: Patient was seen and examined, he is sitting up in bed in no acute distress and eating his breakfast. He is agitated I am interrupting him for exam. Denies any chest pain, fevers, chills, nausea, vomiting, or diarrhea. Reports back pain remains but I guess it is controlled. Patient remains afebrile and hemodynamically stable. He is 100% on room air. Objective: Recent lab work and imaging reviewed. Urine culture with no growth, wound culture showed Pasteurella multocida. Preliminary blood culture 06/21/17 confirmed the same organism. The patient is on cefepime. Repeat blood cultures were drawn on 06/24 and are pending. Respiratory panel was normal. Repeat echocardiogram 06/21/17 revealed severe segmental systolic dysfunction with an ejection fraction of 20%. RVSP estimated at 41 mmHg. Patient has a known history of MARY JANE. He is noncompliant with home CPAP with a pressure setting of 11 cm of water. Last titration study June 2015. Pulmonary function tests were also completed in June 2015 and revealed the presence of a moderate mixed ventilatory defect with a symmetric reduction in diffusing capacity. He is a patient of our pulmonary medicine office, however has not maintained follow-up. - Physical Exam General: Alert, Oriented x3, - - Agitated. No conversational dyspnea HEENT: Atraumatic, Normocephalic Oral: Moist Mucosa, No Gingival or Mucosal Lesions/ Ulcerations Neck: Supple, No Nodes, Trachea Midline Lungs: - - Diminished posterior bases, no rhonchi wheezing or rales Cardiovascular: Regular rate, Regular Rhythm, Normal S1, Normal S2, No murmurs, No rub noted, No Gallop Abdomen: Bowel Sounds Present, Soft, Non Tender, Non-Distended Extremities: No clubbing, No cyanosis, No Calf Tenderness, Edema Skin: No rashes, Ulcer/ Wound - lumbar dressing C/D/I Musculoskeletal: No Tenderness to Palpation of Joints or Extremities Lymphatic: No Cervical, Supraclavicular, or Inguinal Adenopathy Neurological: Cranial nerves II-XII grossly intact, Neuro grossly intact, Motor Exam 5/5 strength throughout Psych/Mental Status: Agitated, Flat Affect, - - answers questions Vital Signs Temp Pulse Resp BP Pulse Ox 96.0 F L 56 L 18 108/61 100 06/24/17 02:22 06/24/17 07:35 06/24/17 02:22 06/24/17 02:22 06/24/17 02:22 Oxygen Flow Rate 2 Oxygen Delivery Method Room Air Weight: 178 lb 5.663 oz Body Mass Index (BMI) 25.4 Intake and Output for Last 24 Hours 06/22/17 06/23/17 06/24/17 23:59 23:59 23:59 Intake Total 774.9 / 774.9 1801.0 / 1801.0 240 / 240 Output Total 840 / 840 900 / 900 150 / 150 Balance -65.1 / -65.1 901.0 / 901.0 90 / 90 Microbiology Past 72 Hours 06/21/17 13:05 Urine Culture - Final Urine Catheter - Garcia Culture exhibits no growth. 06/21/17 13:33 Gram Stain - Final Wound - Other Wound Culture - Final Pasteurella multocida 06/21/17 15:05 Respiratory Panel (PCR) - Final Mucosa - Nasopharyngeal 06/21/17 14:30 Blood Culture - Preliminary Blood Culture (Wb) - Other Assessment/Plan Active and Suspected Problems Altered mental status, unspecified (Acute) A-fib (Acute) Sepsis (Acute) Severe sepsis (Acute) wound sepsis of previous wound (Acute) RECOMMENDATIONS: 1. No continuous supplemental IV fluids, given depressed ejection fraction 2. Continue cefepime 3. Continue p.o. amiodarone 4. Continue fentanyl patch for pain control, intolerant to oxycodone 5. Electrolyte repletion as indicated 6. Continue Eliquis and Pepcid 7. Continue modified diet per speech therapy recommendations 8. Cardiology to assist in the management of his depressed ejection fraction. IMPRESSIONS: 1. Severe sepsis secondary to gram negative wound infection and bacteremia The patient received supplemental IV fluids with subsequent hemodynamic stabilization. Serum lactate has normalized. Vancomycin has been discontinued. Cefepime will be continued, pending finalized sensitivities. I highly suspect that the patient's supraventricular tachycardia noted on presentation was the consequence of underlying sepsis. Dr. Cook to evaluate the patient's back wound on Saturday. Continue local wound care. 2. Metabolic/infectious encephalopathy Resolved at this time. We will continue to monitor. CT head was already completed. 3. SVT/NSTEMI/new onset systolic heart failure/history of paroxysmal atrial fibrillation The patient has a history of PAF and is on Eliquis. Repeat echocardiogram completed 06/21/17 revealed a significant change, the ejection fraction fell from approximately 55% in 2016 to 20%. Cardiology is following. The patient's amiodarone has been transition to p.o. Suspect SVT is a consequence of his underlying severe sepsis. Unclear if the patient would require an ischemic evaluation during this hospitalization versus repeat of his echocardiogram on an outpatient basis, following resolution of his current infectious process. Troponins were downtrending, peak was 1.12. Cardiology following. 4. Acute on chronic kidney disease Improved. Likely secondary to #1 and relative hemodynamic instability. Garcia catheter remains in place. Continue to monitor urine output. Nephrology following. 5. Personal history of mixed ventilatory defect/obstructive sleep apnea/chronic lumbosacral wound/hyperlipidemia Complicates care, management, recovery and prognosis. CPAP can be initiated on a nocturnal basis, pending stability in the patient's clinical state. Wound care is following. Continue fentanyl patch for pain control. Oxycodone was discontinued secondary to intolerance. This note was generated with [employer] dictation software. It may contain incorrect words, spelling, and punctuation that were not noted in checking the note before signing.
[2017-06-24] MEDS: Aspirin E.C. 81 MG Tablet PO (08:46)
[2017-06-24] MEDS: Gabapentin 100 MG Capsule PO ×2 (08:46→17:26)
[2017-06-24] MEDS: Cefepime 1 GM in 0.9% NS 50 ML Minibag Q12 IV (10:42)
[2017-06-24] MEDS: Senna/Docusate Sodium 1 Tablet 2 TABLET PO ×2 (10:42→21:08)
[2017-06-24] MEDS: APIXABAN 2.5 MG TABLET PO ×2 (10:43→21:07)
[2017-06-24] MEDS: Famotidine 20 MG Tablet PO (10:43)
[2017-06-24] MEDS: Amiodarone 200 MG Tablet PO (10:43)
[2017-06-24] MEDS: Magnesium Oxide 400 MG Tablet PO (10:43)
--- NOTE | 2017-06-24 15:39 | CHAPLAIN ---
Type of Pastoral Visit _x__ Initial Visit ___ Follow-up Visit ___ On-call Visit ___ General Patient Visit ___ Spiritual Assessment ___ Family Conference ___ Bereavement ___ Rapid Response ___ Code Blue ___ Other (describe below) Pastoral Care Referral From ___ Patient _x__ Family ___ Nurse ___ Physician ___ Logger All Round ___ Tank Tester ___ Other (describe below) Sacrament/Intervention ___ Active listening ___ Anointing ___ Bahai ___ Bereavement ___ Communion ___ Cindy exploration ___ ___ Life review ___ Prayer ___ Reconciliation ___ Sacrament of Sick _x__ Supportive presence ___ Wedding ___ Other (describe below) Pastoral Comments several visitors were in room at this time; offer of support made to patient; pt says that he does not need anything at this time
--- NOTE | 2017-06-24 15:56 | PCM.PN.HOSP ---
Patient Problems: Active and Suspected Problems A-fib (Acute) Severe sepsis (Acute) wound sepsis of previous wound (Acute) Bacteremia (Acute) Right hip pain (Acute) Subjective: Pains of exquisite right hip pain for the past couple days. Denies any trauma while he was here nor any trauma prior to this hospitalization but just hurts on the lateral side of his right hip. Denies any rash overlying that. Vitals/I&O's: Vital Signs Temp Pulse Resp BP Pulse Ox 36.4 C L 67 18 128/65 H 100 06/24/17 14:44 06/24/17 15:28 06/24/17 14:44 06/24/17 14:44 06/24/17 14:44 Oxygen Flow Rate 2 Oxygen Delivery Method Room Air Weight: 80.9 kg Body Mass Index (BMI) 25.4 Intake and Output for Last 24 Hours 06/22/17 06/23/17 06/24/17 23:59 23:59 23:59 Intake Total 774.9 / 774.9 1801.0 / 1801.0 945 / 945 Output Total 840 / 840 900 / 900 400 / 400 Balance -65.1 / -65.1 901.0 / 901.0 545 / 545 General: Alert, Cooperative, No apparent distress HEENT: Atraumatic, Normocephalic Neck: No Nodes, Thyroid Normal Size and Texture Lungs: Clear to auscultation, Normal air movement, No rhonchi, No wheeze Cardiovascular: Regular rate, Regular Rhythm, Normal S1, Normal S2, No murmurs Abdomen: Bowel Sounds Present, Soft, Non Tender, Non-Distended, No Hepato-splenomegaly, Passing Flatus Extremities: No edema, No Calf Tenderness Musculoskeletal: - - Pain in right hip with very mild palpation laterally. No rash overlying the area of pain. Pain with active motion of his right hip. Psych/Mental Status: Normal Affect, Appropriate Microbiology Past 72 Hours 06/21/17 14:30 Blood Culture (Wb) - Other Blood Culture - Final Pasteurella multocida 06/21/17 13:05 Urine Catheter - Garcia Urine Culture - Final Culture exhibits no growth. 06/21/17 13:33 Wound - Other Gram Stain - Final 06/21/17 13:33 Wound - Other Wound Culture - Final Pasteurella multocida 06/21/17 15:05 Mucosa - Nasopharyngeal Respiratory Panel (PCR) - Final Current Medications Acetaminophen (Tylenol) 650 mg PO Q6H PRN PRN PRN Reason: pain/fever Last Admin: 06/24/17 14:46 Dose: 650 mg Amiodarone HCl (Cordarone) 200 mg PO DAILY [facility] Last Admin: 06/24/17 10:43 Dose: 200 mg Apixaban (Eliquis) 2.5 mg PO BID [facility] Last Admin: 06/24/17 10:43 Dose: 2.5 mg Aspirin (Ecotrin) 81 mg PO DAILY@0800 [facility] Last Admin: 06/24/17 08:46 Dose: 81 mg Atorvastatin Calcium (Lipitor) 20 mg PO QHS [facility] Last Admin: 06/23/17 21:13 Dose: 20 mg Chlorhexidine Gluconate () 1 each TOPICAL DAILY [facility] Last Admin: 06/24/17 10:42 Dose: Not Given Famotidine (Pepcid) 20 mg PO DAILY [facility] Last Admin: 06/24/17 10:43 Dose: 20 mg Fentanyl (Duragesic) 25 mcg TRANSDERM. Q3D [facility] Last Admin: 06/22/17 13:52 Dose: 25 mcg Folic Acid (Folic Acid) 1 mg PO QHS [facility] Last Admin: 06/23/17 21:13 Dose: 1 mg Gabapentin (Neurontin) 100 mg PO BIDCM [facility] Last Admin: 06/24/17 08:46 Dose: 100 mg Sodium Chloride () 250 mls @ 15 mls/hr IV .[id number] PRN PRN Reason: SALINE FLUSH Last Admin: 06/22/17 21:38 Dose: 15 mls/hr Sodium Chloride () 250 mls @ 15 mls/hr IV .[id number] PRN PRN Reason: SALINE FLUSH Cefepime HCl 1 gm/ Sodium (Chloride) 50 mls @ 100 mls/hr IV Q12 [facility] Last Admin: 06/24/17 10:42 Dose: 100 mls/hr Magnesium Hydroxide (Milk Of Magnesia) 30 ml PO DAILY PRN PRN PRN Reason: Constipation Magnesium Oxide (Mag-Ox 400) 400 mg PO DAILY [facility] Last Admin: 06/24/17 10:43 Dose: 400 mg Multivitamins/Minerals (Ocuvite) 2 tablet PO DAILY [facility] Last Admin: 06/24/17 10:42 Dose: 2 tablet Psyllium Hydrophilic Mucilloid (Metamucil) 1 packet PO DAILY PRN PRN PRN Reason: CONSTIPATION Senna/Docusate Sodium (Senokot-S, Uma-Colace) 2 tablet PO BID [facility] Last Admin: 06/24/17 10:42 Dose: 2 tablet Sodium Chloride () 5 - 30 ml IV UD PRN PRN Reason: SALINE FLUSH Last Admin: 06/23/17 05:45 Dose: 20 ml Assessment/Plan Active and Suspected Problems A-fib (Acute) Severe sepsis (Acute) wound sepsis of previous wound (Acute) Bacteremia (Acute) Right hip pain (Acute) 1. Atrial fibrillation with RVR Currently normal sinus rhythm On amiodarone Anticoagulated with Eliquis 2. Severe sepsis Present on admission Secondary to infected back wound and bacteremia Clinically improving 3.Infected back wound Positive Pasteurella Will DC cefepime and transition over to Rocephin Consult infectious disease for further length of treatment and discharge medications 4. Bacteremia 1 of 2 sets positive for the pasteurella species Continue with antibiotics Repeat blood cultures drawn today, follow-up 5. Right hip pain Unclear etiology. Could be strain, fracture in even septic arthritis given the patient's bacteremia Check an x-ray for now Optimize pain control 6. Chronic kidney disease stage 3 Stable. Monitor 7. Non-STEMI Clinically stable May be a type II event given the patient's severe sepsis, atrial fibrillation with RVR and bacteremia Follow-up with cardiology as outpatient 8. Cardiomyopathy Ejection fraction of 20%, this is down from 60% from August 11, 2013. On aspirin 9. DVT prophylaxis: Patient is on Eliquis Greater than 35 minutes of which greater than 50% of time was discussing the patient's hip pain and pain control and also discussing the patient's newly diagnosed cardiomyopathy. Code Visit Inpatient E&M: [id number] [facility] Hosp L3
--- NOTE | 2017-06-24 16:13 | PN_ITS ---
Patient Problems: Active and Suspected Problems A-fib (Acute) Severe sepsis (Acute) wound sepsis of previous wound (Acute) Bacteremia (Acute) Right hip pain (Acute) Subjective: Pains of exquisite right hip pain for the past couple days. Denies any trauma while he was here nor any trauma prior to this hospitalization but just hurts on the lateral side of his right hip. Denies any rash overlying that. Vitals/I&O's: Vital Signs Temp Pulse Resp BP Pulse Ox 36.4 C L 67 18 128/65 H 100 06/24/17 14:44 06/24/17 15:28 06/24/17 14:44 06/24/17 14:44 06/24/17 14:44 Oxygen Flow Rate 2 Oxygen Delivery Method Room Air Weight: 80.9 kg Body Mass Index (BMI) 25.4 Intake and Output for Last 24 Hours 06/22/17 06/23/17 06/24/17 23:59 23:59 23:59 Intake Total 774.9 / 774.9 1801.0 / 1801.0 945 / 945 Output Total 840 / 840 900 / 900 400 / 400 Balance -65.1 / -65.1 901.0 / 901.0 545 / 545 General: Alert, Cooperative, No apparent distress HEENT: Atraumatic, Normocephalic Neck: No Nodes, Thyroid Normal Size and Texture Lungs: Clear to auscultation, Normal air movement, No rhonchi, No wheeze Cardiovascular: Regular rate, Regular Rhythm, Normal S1, Normal S2, No murmurs Abdomen: Bowel Sounds Present, Soft, Non Tender, Non-Distended, No Hepato- splenomegaly, Passing Flatus Extremities: No edema, No Calf Tenderness Musculoskeletal: - - Pain in right hip with very mild palpation laterally. No rash overlying the area of pain. Pain with active motion of his right hip. Psych/Mental Status: Normal Affect, Appropriate Microbiology Past 72 Hours 06/21/17 14:30 Blood Culture (Wb) - Other Blood Culture - Final Pasteurella multocida 06/21/17 13:05 Urine Catheter - Garcia Urine Culture - Final Culture exhibits no growth. 06/21/17 13:33 Wound - Other Gram Stain - Final 06/21/17 13:33 Wound - Other Wound Culture - Final Pasteurella multocida 06/21/17 15:05 Mucosa - Nasopharyngeal Respiratory Panel (PCR) - Final Current Medications Acetaminophen (Tylenol) 650 mg PO Q6H PRN PRN PRN Reason: pain/fever Last Admin: 06/24/17 14:46 Dose: 650 mg Amiodarone HCl (Cordarone) 200 mg PO DAILY [facility] Last Admin: 06/24/17 10:43 Dose: 200 mg Apixaban (Eliquis) 2.5 mg PO BID [facility] Last Admin: 06/24/17 10:43 Dose: 2.5 mg Aspirin (Ecotrin) 81 mg PO DAILY@0800 [facility] Last Admin: 06/24/17 08:46 Dose: 81 mg Atorvastatin Calcium (Lipitor) 20 mg PO QHS [facility] Last Admin: 06/23/17 21:13 Dose: 20 mg Chlorhexidine Gluconate () 1 each TOPICAL DAILY [facility] Last Admin: 06/24/17 10:42 Dose: Not Given Famotidine (Pepcid) 20 mg PO DAILY [facility] Last Admin: 06/24/17 10:43 Dose: 20 mg Fentanyl (Duragesic) 25 mcg TRANSDERM. Q3D [facility] Last Admin: 06/22/17 13:52 Dose: 25 mcg Folic Acid (Folic Acid) 1 mg PO QHS [facility] Last Admin: 06/23/17 21:13 Dose: 1 mg Gabapentin (Neurontin) 100 mg PO BIDCM [facility] Last Admin: 06/24/17 08:46 Dose: 100 mg Sodium Chloride () 250 mls @ 15 mls/hr IV .[id number] PRN PRN Reason: SALINE FLUSH Last Admin: 06/22/17 21:38 Dose: 15 mls/hr Sodium Chloride () 250 mls @ 15 mls/hr IV .[id number] PRN PRN Reason: SALINE FLUSH Cefepime HCl 1 gm/ Sodium (Chloride) 50 mls @ 100 mls/hr IV Q12 [facility] Last Admin: 06/24/17 10:42 Dose: 100 mls/hr Magnesium Hydroxide (Milk Of Magnesia) 30 ml PO DAILY PRN PRN PRN Reason: Constipation Magnesium Oxide (Mag-Ox 400) 400 mg PO DAILY [facility] Last Admin: 06/24/17 10:43 Dose: 400 mg Multivitamins/Minerals (Ocuvite) 2 tablet PO DAILY [facility] Last Admin: 06/24/17 10:42 Dose: 2 tablet Psyllium Hydrophilic Mucilloid (Metamucil) 1 packet PO DAILY PRN PRN PRN Reason: CONSTIPATION Senna/Docusate Sodium (Senokot-S, Uma-Colace) 2 tablet PO BID [facility] Last Admin: 06/24/17 10:42 Dose: 2 tablet Sodium Chloride () 5 - 30 ml IV UD PRN PRN Reason: SALINE FLUSH Last Admin: 06/23/17 05:45 Dose: 20 ml Assessment/Plan Active and Suspected Problems A-fib (Acute) Severe sepsis (Acute) wound sepsis of previous wound (Acute) Bacteremia (Acute) Right hip pain (Acute) 1. Atrial fibrillation with RVR * Currently normal sinus rhythm * On amiodarone * Anticoagulated with Eliquis 2. Severe sepsis * Present on admission * Secondary to infected back wound and bacteremia * Clinically improving 3.Infected back wound * Positive Pasteurella * Will DC cefepime and transition over to Rocephin * Consult infectious disease for further length of treatment and discharge medications 4. Bacteremia * 1 of 2 sets positive for the pasteurella species * Continue with antibiotics * Repeat blood cultures drawn today, follow-up 5. Right hip pain * Unclear etiology. * Could be strain, fracture in even septic arthritis given the patient's bacteremia * Check an x-ray for now * Optimize pain control 6. Chronic kidney disease stage 3 * Stable. Monitor 7. Non-STEMI * Clinically stable * May be a type II event given the patient's severe sepsis, atrial fibrillation with RVR and bacteremia * Follow-up with cardiology as outpatient 8. Cardiomyopathy * Ejection fraction of 20%, this is down from 60% from August 11, 2013. * On aspirin 9. DVT prophylaxis: Patient is on Eliquis Greater than 35 minutes of which greater than 50% of time was discussing the patient's hip pain and pain control and also discussing the patient's newly diagnosed cardiomyopathy. Code Visit Inpatient E&M: [id number] [facility] Hosp L3
--- NOTE | 2017-06-24 16:18 | RAD_ITS ---
STUDY: X-RAY - PELVIS AND RIGHT HIP REASON FOR EXAM: Male, 72 years old. Right hip pain TECHNIQUE: Radiological exam, hip, unilateral, with pelvis when performed; 2 or 3 views. COMPARISON: 04/22/2014 FINDINGS: There is a non-specific bowel gas pattern. There are atherosclerotic vascular calcifications of the pelvic arteries. Garcia catheter present. There are degenerative changes of the lumbar spine. Normal bilateral iliac wings, sacroiliac joints and visualized sacrum. Normal bilateral superior and inferior pubic rami. Normal pubic symphysis. Normal bilateral ischial tuberosities. Sclerotic dominant lesion of the right femoral neck/metaphysis with chondroid matrix. Stable appearance since 2013. Normal acetabulum. Normal hip joint. RAD/Hip 2-3 Views with Pelvis IMPRESSION: 1. No fracture or malalignment. 2. 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 Stable since 2013. Electronically Signed: Calos Nolan MD at 20:38 EST , Service support ,
[2017-06-24] MEDS: HYDROmorphone 2 MG TABLET PO (17:26)
[2017-06-24] MEDS: Ceftriaxone 1 GM/50 ML BAG IV (17:26)
[2017-06-24] MEDS: 0.9% NaCl Peripheral Flush Adult/Peds IV (17:27)
--- NOTE | 2017-06-24 17:30 | PN.RENAL_ITS ---
Patient Problems: Active and Suspected Problems A-fib (Acute) Severe sepsis (Acute) wound sepsis of previous wound (Acute) Bacteremia (Acute) Right hip pain (Acute) Subjective: Following for BRIANA on CKD. Pt denies increasing SOB. No nausea. No CP. - Physical Exam General: Alert, Oriented x3 HEENT: Atraumatic, Normocephalic Oral: Dry Mucosa Neck: Supple Lungs: Clear to auscultation Cardiovascular: Normal S1, Normal S2, No murmurs Abdomen: Soft, Non Tender Extremities: No edema Vital Signs Temp Pulse Resp BP Pulse Ox 97.6 F L 67 18 128/65 H 100 06/24/17 14:44 06/24/17 15:28 06/24/17 14:44 06/24/17 14:44 06/24/17 14:44 Oxygen Flow Rate 2 Oxygen Delivery Method Room Air Weight: 80.9 kg Body Mass Index (BMI) 25.4 Intake and Output for Last 24 Hours 06/22/17 06/23/17 06/24/17 23:59 23:59 23:59 Intake Total 774.9 / 774.9 1801.0 / 1801.0 945 / 945 Output Total 840 / 840 900 / 900 400 / 400 Balance -65.1 / -65.1 901.0 / 901.0 545 / 545 Microbiology Past 72 Hours 06/21/17 14:30 Blood Culture - Final Blood Culture (Wb) - Other Pasteurella multocida 06/21/17 13:05 Urine Culture - Final Urine Catheter - Garcia Culture exhibits no growth. 06/21/17 13:33 Gram Stain - Final Wound - Other Wound Culture - Final Pasteurella multocida 06/21/17 15:05 Respiratory Panel (PCR) - Final Mucosa - Nasopharyngeal Assessment/Plan Active and Suspected Problems A-fib (Acute) Severe sepsis (Acute) wound sepsis of previous wound (Acute) Bacteremia (Acute) Right hip pain (Acute) 1. Acute kidney injury on chronic kidney disease stage 3. baseline SCr 1.8. CKD is thought to be secondary to prior tubular and interstitial injury from ATN/ AIN. He is followed by Dr. Haines in our office. Current BRIANA is likely due to ischemic ATN. Will check urine indices. Renal function has been stable in the last 48 hrs. He is nonoliguric. No current need for dialysis. Meds were reviewed. I d/c NSAID earlier today. Other medications are OK for the current CrCl. Will follow. 2. Severe sepsis/GNR BSI. Improving. Antibiotic as per hospital medicine service. 3. hypomagnesemia. On MagOx. Check level in am. 4. NSTEMI. Likely demand ischemia. Cardiology following.
--- NOTE | 2017-06-24 17:37 | PCM.CONS.GEN ---
Reason for Consult Date of Consultation: 06/24/17 Reason for Consultation: Nonhealing infected back ulcer with exposed bone. REFERRING PHYSICIAN: Dr. Bueno. VACUUM METALIZING SUPERVISOR: Dr.. Cook. History of Present Illness: 72 year old man presents with a chronic draining lumbar back wound that developed after a microdiscectomy in October, at [facility]. The draining wound never healed. He was scheduled recently for wound closure with muscle flaps in [place]. The surgery was postponed because of persistent infection and he was sent to [facility] for continued wound care until the wound has improved to the point to proceed with muscle flap reconstruction. Patient has a history of Non-Hodgkin's Lymphoma and had radiation therapy to his back. I was asked to evaluate his nonhealing ulcer lower back for surgical options for treatment. 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) nonhealing ulcer lumbar back area Open wound of lower back (Chronic) with muscle and bone exposed s/p surgical debridement of abscess s/p lumbar spine surgery Chronic ulcer of right leg with fat layer exposed (Chronic) Lumbar disc disease (Chronic) Edema of both legs (Chronic) Leg swelling (Chronic) History of diverticulitis (Chronic) Hyperlipidemia (Chronic) Back pain at L4-L5 level (Chronic) History of non-Hodgkin's lymphoma (Chronic) Hypertension (Chronic) Shortness of breath (Chronic) Hypoxia (Chronic) History of atrial fibrillation (Chronic) Surgical wound dehiscence (Chronic) Renal insufficiency (Chronic) Soft tissue radionecrosis (Chronic) Ulcer of left heel and midfoot with fat layer exposed (Chronic) Decubitus ulcer, heel, right, unstageable (Chronic) Peripheral vascular disease (Chronic) Edema, lower extremity (Chronic) Malnutrition (Chronic) Pressure ulcer, back, lower (Chronic) Ulcer of right foot with fat layer exposed (Chronic) Decubitus ulcer of right foot, unstageable (Chronic) Peripheral vascular disease (Chronic) Ulcer of right lower extremity with fat layer exposed (Chronic) Tinea unguium (Chronic) Past Medical History Past Medical History: Hypertension. Hyperlipidemia. Renal insufficiency. 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 Atrial fibrillation. Back pain. Diverticulitis. Soft tissue radionecrosis. COPD. MARY JANE. Kidney stones. PVD. Lumbar disc disease. Surgical History: - - The patient underwent partial colectomy for diverticulitis and splenectomy in 2002. Several months later, and ileostomy, which had been performed at the time of the initial surgery, was reversed. Lumbar L4-[address] Swan at the [facility] on November 02, 2015. Allergies sulfamethoxazole [From Bactrim] Allergy (Verified 06/21/17 08:58) Other trimethoprim [From Bactrim] Allergy (Verified 06/21/17 08:58) Other prednisone Adverse Reaction (Verified 06/21/17 08:58) Swelling Current Medications Acetaminophen (Tylenol) 650 mg PO Q6H PRN Amiodarone HCl (Cordarone) 200 mg PO DAILY [facility] Apixaban (Eliquis) 2.5 mg PO BID [facility] Aspirin (Ecotrin) 81 mg PO DAILY@0800 [facility] Atorvastatin Calcium (Lipitor) 20 mg PO QHS [facility] Chlorhexidine Gluconate () 1 each TOPICAL DAILY [facility] Famotidine (Pepcid) 20 mg PO DAILY [facility] Fentanyl (Duragesic) 25 mcg TRANSDERM. Q3D [facility] Folic Acid (Folic Acid) 1 mg PO QHS [facility] Gabapentin (Neurontin) 100 mg PO TIDCM [facility] Hydromorphone HCl (Dilaudid) 2 mg PO Q4H PRN Ceftriaxone Sodium (Rocephin) 1 gm in 50 mls @ 100 mls/hr IV Q24 [facility] Lidocaine (Lidoderm Patch) 1 patch TOPICAL DAILy [facility] Magnesium Hydroxide (Milk Of Magnesia) 30 ml PO DAILY PRN Magnesium Oxide (Mag-Ox 400) 400 mg PO DAILY [facility] Multivitamins/Minerals (Ocuvite) 2 tablet PO DAILY [facility] Psyllium Hydrophilic Mucilloid (Metamucil) 1 packet PO DAILY PRN Senna/Docusate Sodium (Senokot-S, Uma-Colace) 2 tablet PO BID [facility] Home Medications: Ambulatory Orders Medication Instructions Recorded Ferrous Gluconate 240 mg PO BID 02/05/16 Folic Acid 1 mg PO QHS 02/05/16 Magnesium Oxide [Magnesium] 400 mg PO DAILY 02/05/16 Metoprolol Tartrate [Lopressor 12.5 mg PO BID 02/05/16 (beta cyndi)] Apixaban [Eliquis] 2.5 mg PO BID 03/16/16 Cholecalciferol (Vitamin D3) 1,000 unit PO QHS 10/14/16 [Vitamin D3] Gabapentin [Neurontin] 100 mg PO BIDCM #60 capsule 10/25/16 Oxycodone [Oxyir] 30 mg PO PRN PRN 02/13/17 atorvastatin 20 mg tablet 20 mg PO QDAY #90 tab 05/16/17 Vit C/E/Zn/Coppr/Lutein/Zeaxan 2 each PO DAILY 06/21/17 [Preservision Areds 2 Softgel] Psychiatric History: No pertinent psych hx Lives: Spouse/ Significant Other Smoking Status: Former smoker Alcohol: None Drugs: None - *Family History Maternal History Items: Heart Disease Paternal History Items: Diabetes Review of Systems Comment: Review of Systems. Constitutional: Reports: Malaise, Weakness, Fatigue. Denies: Fever. Eyes: Denies: Cataracts. HEENT: Denies: Nasal Congestion, Sore Throat. Cardiovascular: Denies: Chest Pain. Respiratory: Denies: Cough, Shortness of Breath. Gastrointestinal: Denies: Constipation, Diarrhea, Nausea, Vomiting. Genitourinary: Denies: Frequency, Hematuria. Musculoskeletal: Reports: Back Pain. Denies: Hand Pain, Leg Pain, Neck Pain. Skin: Reports: Wounds - has draining wound lumbar back. Neurological: Denies: Headaches. Psychiatric: Denies: Anxiety, Depression. Endocrine: Reports: Hx of Irradiation - to the lumbar spine for Non-Hodgkin's Lymphoma.. Denies: Polydipsia, Polyuria. Hematologic/ Lymphatic: Reports: Easy Bruising - patient is on Eliquis.. Denies: Hx of blood clot Patient Problems: Active and Suspected Problems A-fib (Acute) Severe sepsis (Acute) wound sepsis of previous wound (Acute) - Physical Exam General: Alert, Oriented x3 HEENT: PERRLA, EOMI Neck: Supple Lungs: Clear to auscultation Cardiovascular: Regular rate, Regular Rhythm Abdomen: Soft, Non-Distended Extremities: No clubbing, No cyanosis, Edema - in lower extremities. Skin: Ulcer/ Wound - On his lumbar back is a nonhealing draining ulcer. Measures 15 x 6 x 1.5 cm. Some bone seen superiorly. Some exudate present. No purulent drainage noted. Lymphatic: No Cervical, Supraclavicular, or Inguinal Adenopathy Neurological: Cranial nerves II-XII grossly intact Psych/Mental Status: Normal Affect, Appropriate Vital Signs Temp Pulse Resp BP Pulse Ox 97.6 F L 67 18 128/65 H 100 06/24/17 14:44 06/24/17 15:28 06/24/17 14:44 06/24/17 14:44 06/24/17 14:44 Oxygen Flow Rate 2 Oxygen Delivery Method Room Air Weight: 178 lb 5.663 oz Body Mass Index (BMI) 25.4 Intake and Output for Last 24 Hours 06/22/17 06/23/17 06/24/17 23:59 23:59 23:59 Intake Total 774.9 / 774.9 1801.0 / 1801.0 945 / 945 Output Total 840 / 840 900 / 900 400 / 400 Balance -65.1 / -65.1 901.0 / 901.0 545 / 545 Microbiology Past 72 Hours 06/21/17 14:30 Blood Culture - Final Blood Culture (Wb) - Other Pasteurella multocida 06/21/17 13:05 Urine Culture - Final Urine Catheter - Garcia Culture exhibits no growth. 06/21/17 13:33 Gram Stain - Final Wound - Other Wound Culture - Final Pasteurella multocida 06/21/17 15:05 Respiratory Panel (PCR) - Final Mucosa - Nasopharyngeal Assessment/Plan Active and Suspected Problems A-fib (Acute) Severe sepsis (Acute) wound sepsis of previous wound (Acute) Assessment/Plan Assessment: 1. Nonhealing ulcer lumbar back. 2. Late effect radiation lumbar back. 3. History of Non-Hodgkin's Lymphoma. 4. History of microdiscectomy L4-L5 in October,. Plan: Recent wound culture showed Pasteurella multocida. He is on Ceftriaxone. Wound care has been with saline dressing changes. Will change that to half strength Dakin's dressing changes twice a day. Patient needs an operative debridement which would include a partial ostectomy for osteomyelitis. Getting the infection under control is necessary before embarking on wound closure with muscle flaps. With his history of radiation therapy, he wound benefit from HBO treatments. Patient states he is not interested in HBO at this time. His states he has an appointment in [place] on . She will call them to have it moved till next week. There is no back surgeon available here at [facility]. So he would need to have this operative debridement and bone biopsy done at a tertiary center. He has been going to a Plastic Surgeon in [place]. At the time of the muscle flaps, I anticipate the need for fdc IV antibiotics, and a PICC line would be needed. Also anticipate increased metabolic demands from the infection and the debridement surgery and a Prealbumin should be checked. Will need nutritional supplementation with protein to help the healing process. At the time of his operative debridement in [place], a CT or MRI should be done to look for any deeper focus of infection. His cardiac status is decreased as well as his ejection fraction has decreased to about 20% making surgery high risk for this patient and another reason to have it done at a tertiary center. Patient was informed of the risks and complications of the procedure including alternatives to surgery. These were discussed with him personally. He voices understanding and wishes to proceed and understands his surgery would need to be done in [place]. Code Visit Inpatient E&M: 24302 Init Hosp L2 - ICD-10 - L98.496, T66.xxxS, M79.89, M54.5, Z85.72
[2017-06-24] MEDS: Folic Acid 1 MG Tablet PO (21:07)
[2017-06-24] MEDS: Atorvastatin Calcium 20 MG Tablet PO (21:07)
[2017-06-25] VITALS (11 sets, daily range): BP systolic 104–141; BP diastolic 52–69; PULSE 70–102; RESP 16–18; TEMP 36.1–37; O2SAT 95–100
[2017-06-25] MEDS: HYDROmorphone 2 MG TABLET PO ×5 (00:19→23:19)
[2017-06-25] MEDS: Acetaminophen 325 MG Tablet 650 MG PO ×2 (04:02→11:44)
[2017-06-25 04:45] LABS: Absolute Lymphocyte Count 1.09 X10^3/ul (0.83-4.51); Absolute Neutrophil Count 8.2 X10^3/uL (2.0-7.7); Basophil# 0.01 X10^3/uL; Basophil% 0.1 % (0-1); Eosinophil# 0.02 X10^3/uL; Eosinophils% 0.2 % (0-5); Hematocrit 33.2 % (40-54); Hemoglobin 10.8 g/dl (13.0-16.5); Lymphocyte # 1.09 X10^3/ul (4.0); Lymphocyte % 10.5 % (19-41); Mean Corp Hgb Conc 32.5 g/gl (32-36); Mean Corpuscular Hgb 31.9 pg (27.0-32.0); Mean Corpuscular Volume 97.9 fL (80-94); Mean Platelet Vol. 10.3 fl (6.2-12.0); Monocyte# 1.03 X10^3/uL; Neutrophil # 8.17 X10^3/uL (2.7-7.7); Neutrophil % 78.9 % (47-70); Platelet Count 308 K/mm3 (150-450); RBC Distribution Width CV 15.6 % (11.6-14.6); RBC Distribution Width SD 55.4 fl (35.1-43.9); Red Blood Count 3.39 M/mm3 (4.6-6.2); White Blood Count 10.4 K/mm3 (4.4-11.0)
[2017-06-25 04:46] LABS: POSITIVE COUNT NO; POSITIVE DIFFERENTIAL NO; POSITIVE MORPHOLOGY NO
[2017-06-25 04:48] LABS: Absolute Nucleated RBC Count 0.05 10^3/uL (0-5); NRBC Flagged by Analyzer 0.5 % (0-5)
[2017-06-25 04:57] LABS: Anion Gap 9 (5-15); BUN 71 mg/dL (7-18); BUN/Creat Ratio 34.1 RATIO (10-20); Chloride 103 mmol/L (98-107); Creatinine, Serum 2.08 mg/dL (0.70-1.30); EST Glomerular Filtration Rate 33 mL/min (>60); Est Glom Filt Rate - Afr Amer 40 mL/min (>60); Glucose 100 mg/dL (74-106); Magnesium 2.2 mg/dL (1.6-2.6); Potassium 3.5 mmol/L (3.5-5.1); Sodium Level 135 mmol/L (136-145)
[2017-06-25] MEDS: 0.9% NaCl Peripheral Flush Adult/Peds IV (05:31)
[2017-06-25] MEDS: Senna/Docusate Sodium 1 Tablet 2 TABLET PO ×2 (08:41→21:44)
[2017-06-25] MEDS: Gabapentin 100 MG Capsule PO ×3 (08:41→16:12)
[2017-06-25] MEDS: APIXABAN 2.5 MG TABLET PO ×2 (08:41→21:44)
[2017-06-25] MEDS: Aspirin E.C. 81 MG Tablet PO (08:41)
[2017-06-25] MEDS: Famotidine 20 MG Tablet PO (08:42)
[2017-06-25] MEDS: Magnesium Oxide 400 MG Tablet PO (08:42)
[2017-06-25] MEDS: Amiodarone 200 MG Tablet PO (08:43)
[2017-06-25] MEDS: Lidocaine 5% Patch 1 PATCH TOPICAL (08:43)
[2017-06-25] MEDS: Ceftriaxone 1 GM/50 ML BAG IV (08:44)
--- NOTE | 2017-06-25 10:46 | PCM.HP.ID ---
Problem List (1) Bacteremia Status: Acute Reason for Consult: (+) bcx Consulted by: Dr. Cisneros History of Present Illness: The patient is a 72 year old M with h/o NHL and radiation to spine who presented 06/21 with acute onset of weakness, fatigue, confusion. Has had non-healing ulcer on back since microdiscectomy in 2015. He was admitted to [facility] 02/2017 for closure, found to have deep infection requiring debridement and long course of po abx. Came off augmentin just a few weeks ago. Has chronic, unchanged redness/swelling/clear drainage from back. No recent inciting events or contamination of back wound; no cats/dogs in contact with wound. He was taken to ED, bcx and wound sent. Started on vanc/zosyn, changed to cefepime, wound cx and bcx now with pasteurella, and abx narrowed to ceftriaxone. Surgery consulted. He is still not feeling well, but improved compared to admission. at bedside provided most of the history. No n/v/d. Having some leg weakness. Full ROS performed and neg except as noted above. - Medical History Past Medical History (Chronic Problems): Chronic Problems Open wound of lower back (Chronic) with muscle and bone exposed s/p surgical debridement of abscess s/p lumbar spine surgery Chronic ulcer of right leg with fat layer exposed (Chronic) Lumbar disc disease (Chronic) Edema of both legs (Chronic) Leg swelling (Chronic) History of diverticulitis (Chronic) Hyperlipidemia (Chronic) Back pain at L4-L5 level (Chronic) History of non-Hodgkin's lymphoma (Chronic) Hypertension (Chronic) Shortness of breath (Chronic) Hypoxia (Chronic) History of atrial fibrillation (Chronic) Surgical wound dehiscence (Chronic) Renal insufficiency (Chronic) Soft tissue radionecrosis (Chronic) Ulcer of left heel and midfoot with fat layer exposed (Chronic) Decubitus ulcer, heel, right, unstageable (Chronic) Peripheral vascular disease (Chronic) Edema, lower extremity (Chronic) Malnutrition (Chronic) Pressure ulcer, back, lower (Chronic) Ulcer of right foot with fat layer exposed (Chronic) Decubitus ulcer of right foot, unstageable (Chronic) Peripheral vascular disease (Chronic) Ulcer of right lower extremity with fat layer exposed (Chronic) Tinea unguium (Chronic) Allergies/Adverse Reactions: Allergies sulfamethoxazole [From Bactrim] Allergy (Verified 02/16/18 08:58) Other trimethoprim [From Bactrim] Allergy (Verified 06/21/17 08:58) Other prednisone Adverse Reaction (Verified 06/21/17 08:58) Swelling Home Medications: Ambulatory Orders Medication Instructions Recorded Ferrous Gluconate 240 mg PO BID 02/05/16 Folic Acid 1 mg PO QHS 02/05/16 Magnesium Oxide [Magnesium] 400 mg PO DAILY 02/05/16 Metoprolol Tartrate [Lopressor 12.5 mg PO BID 02/05/16 (beta cyndi)] Apixaban [Eliquis] 2.5 mg PO BID 03/16/16 Cholecalciferol (Vitamin D3) 1,000 unit PO QHS 10/14/16 [Vitamin D3] Gabapentin [Neurontin] 100 mg PO BIDCM #60 capsule 10/25/16 Oxycodone [Oxyir] 30 mg PO PRN PRN 02/13/17 atorvastatin 20 mg tablet 20 mg PO QDAY #90 tab 05/16/17 Vit C/E/Zn/Coppr/Lutein/Zeaxan 2 each PO DAILY 06/21/17 [Preservision Areds 2 Softgel] - Social History SMOKING STATUS:: Former smoker Vital Signs Temp Pulse Resp BP Pulse Ox 98.1 F 82 18 104/52 L 95 06/25/17 05:26 06/25/17 07:00 06/25/17 05:26 06/25/17 05:26 06/25/17 05:26 Oxygen Flow Rate 2 Oxygen Delivery Method Room Air Weight: 80.5 kg Body Mass Index (BMI) 25.4 Microbiology Past 72 Hours 06/21/17 14:30 Blood Culture - Final Blood Culture (Wb) - Other Pasteurella multocida 06/21/17 13:05 Urine Culture - Final Urine Catheter - Garcia Culture exhibits no growth. 06/21/17 13:33 Gram Stain - Final Wound - Other Wound Culture - Final Pasteurella multocida 06/21/17 15:05 Respiratory Panel (PCR) - Final Mucosa - Nasopharyngeal Laboratory Tests Past 24 Hrs 06/25/17 06/25/17 04:30 04:30 WBC 10.4 RBC 3.39 L Hgb 10.8 L Hct 33.2 L MCV 97.9 H MCH 31.9 MCHC 32.5 RDW 15.6 H RDW Differential 55.4 H Plt Count 308 MPV 10.3 Immature Gran % (Auto) 0.300 Neut % (Auto) 78.9 H Lymph % (Auto) 10.[address] [place] % (Auto) 10.0 Eos % (Auto) 0.2 Baso % (Auto) 0.1 Absolute Neuts (auto) 8.2 H Absolute Lymphs (auto) 1.09 Total Counted Not Reportable Nucleated RBC % 0.5 Absolute Retic 0.05 Sodium 135 L Potassium 3.5 Chloride 103 Carbon Dioxide 23.0 Anion Gap 9 BUN 71 H Creatinine 2.08 H Estim Creat Clear Calc 30.60 Est GFR (MDRD) Af Amer 40 L Est GFR (MDRD) Non-Af 33 L BUN/Creatinine Ratio 34.1 H Glucose 100 Calcium 8.0 L Magnesium 2.2 - Other Studies Radiology: [] reviewed Other Studies: [] Route of nutrition/ use of supplements: [] Nutritional Intake: [] IV Site: [] Garcia Catheter: [] - Physical Exam General: Alert, Cooperative, - - ill appearing HEENT: Atraumatic, PERRLA, EOMI Neck: Supple, No Nodes, - - R neck line Lungs: Clear to auscultation, Normal air movement Cardiovascular: Regular rate, Regular Rhythm, No murmurs Abdomen: Bowel Sounds Present, Soft, Non Tender, Non-Distended Extremities: No edema Skin: Ulcer/ Wound - lumbar spine Musculoskeletal: No Tenderness to Palpation of Joints or Extremities Neurological: Cranial nerves II-XII grossly intact - Assessment/Plan Antibiotics: [] Assessment/Plan: [] Active and Suspected Problems A-fib (Acute) Severe sepsis (Acute) wound sepsis of previous wound (Acute) Severe sepsis (elevated lactate, leukocytosis, tachycardia) due to pasteurella bacteremia from lumbar spine infected ulcer - improved overall, but high concern for deep pocket of infection that will require surgical debridement. Repeat bcx sent. Cont ceftriaxone. I would favor transfer to [facility] for surgery this admission to try and obtain source control prior to placing a picc and starting fpc abx. CKD - stable Thank you, will follow.
--- NOTE | 2017-06-25 11:00 | PCM.PN.HOSP ---
Patient Problems: Active and Suspected Problems A-fib (Acute) Severe sepsis (Acute) wound sepsis of previous wound (Acute) Subjective: Patient with worsening back pain, did not sleep last night. Still with right hip pain as well. Vitals/I&O's: Vital Signs Temp Pulse Resp BP Pulse Ox 36.7 C 82 18 104/52 L 95 06/25/17 05:26 06/25/17 07:00 06/25/17 05:26 06/25/17 05:26 06/25/17 05:26 Oxygen Flow Rate 2 Oxygen Delivery Method Room Air Weight: 80.5 kg Body Mass Index (BMI) 25.4 Intake and Output for Last 24 Hours 06/23/17 06/24/17 06/25/17 23:59 23:59 23:59 Intake Total 1801.0 / 1801.0 1810 / 1810 240 / 240 Output Total 900 / 900 900 / 900 300 / 300 Balance 901.0 / 901.0 910 / 910 -60 / -60 General: Alert, - - D. Afebrile. HEENT: Atraumatic, Normocephalic Neck: No Nodes, Thyroid Normal Size and Texture Lungs: Clear to auscultation, Normal air movement, No rhonchi, No wheeze Cardiovascular: Regular rate, Regular Rhythm, Normal S1, Normal S2, No murmurs Abdomen: Bowel Sounds Present, Soft, Non Tender, Non-Distended, No Hepato-splenomegaly Extremities: No edema, No Calf Tenderness Skin: - - Back wound visualized. Packing was not removed. No erythema at the edges. Musculoskeletal: - - Paraspinal muscle tenderness on the back. Patient with exquisite tenderness with just moving slightly. Neurological: Neuro grossly intact, Muscle tone normal, - - no Clonus Psych/Mental Status: Normal Affect, Appropriate Microbiology Past 72 Hours 06/21/17 14:30 Blood Culture (Wb) - Other Blood Culture - Final Pasteurella multocida 06/21/17 13:05 Urine Catheter - Garcai Urine Culture - Final Culture exhibits no growth. 06/21/17 13:33 Wound - Other Gram Stain - Final 06/21/17 13:33 Wound - Other Wound Culture - Final Pasteurella multocida 06/21/17 15:05 Mucosa - Nasopharyngeal Respiratory Panel (PCR) - Final Laboratory Results 06/25/17 04:30: WBC 10.4, RBC 3.39 L, Hgb 10.8 L, Hct 33.2 L, MCV 97.9 H, MCH 31.9, MCHC 32.5, RDW 15.6 H, RDW Differential 55.4 H, Plt Count 308, MPV 10.3, Immature Gran % (Auto) 0.300, Neut % (Auto) 78.9 H, Lymph % (Auto) 10.5 L, [place] % (Auto) 10.0, Eos % (Auto) 0.2, Baso % (Auto) 0.1, Absolute Neuts (auto) 8.2 H, Absolute Lymphs (auto) 1.09, Total Counted Not Reportable, Nucleated RBC % 0.5, Absolute Retic 0.05 06/25/17 04:30: Sodium 135 L, Potassium 3.5, Chloride 103, Carbon Dioxide 23.0, Anion Gap 9, BUN 71 H, Creatinine 2.08 H, Estim Creat Clear Calc 30.60, Est GFR (MDRD) Af Amer 40 L, Est GFR (MDRD) Non-Af 33 L, BUN/Creatinine Ratio 34.1 H, Glucose 100, Calcium 8.0 L, Magnesium 2.2 Current Medications Acetaminophen (Tylenol) 650 mg PO Q6H PRN PRN PRN Reason: pain/fever Last Admin: 06/25/17 04:02 Dose: 650 mg Amiodarone HCl (Cordarone) 200 mg PO DAILY [facility] Last Admin: 06/25/17 08:43 Dose: 200 mg Apixaban (Eliquis) 2.5 mg PO BID [facility] Last Admin: 06/25/17 08:41 Dose: 2.5 mg Aspirin (Ecotrin) 81 mg PO DAILY@0800 [facility] Last Admin: 06/25/17 08:41 Dose: 81 mg Atorvastatin Calcium (Lipitor) 20 mg PO QHS [facility] Last Admin: 06/24/17 21:07 Dose: 20 mg Famotidine (Pepcid) 20 mg PO DAILY [facility] Last Admin: 06/25/17 08:42 Dose: 20 mg Fentanyl (Duragesic) 25 mcg TRANSDERM. Q3D [facility] Last Admin: 06/22/17 13:52 Dose: 25 mcg Folic Acid (Folic Acid) 1 mg PO QHS [facility] Last Admin: 06/24/17 21:07 Dose: 1 mg Gabapentin (Neurontin) 100 mg PO TIDCM [facility] Last Admin: 06/25/17 08:41 Dose: 100 mg Hydromorphone HCl (Dilaudid) 2 mg PO Q4H PRN PRN PRN Reason: SEVERE PAIN (6-10/10) Last Admin: 06/25/17 10:49 Dose: 2 mg Ceftriaxone Sodium (Rocephin) 1 gm in 50 mls @ 100 mls/hr IV Q24 [facility] Last Admin: 06/25/17 08:44 Dose: 100 mls/hr Lidocaine (Lidoderm Patch) 1 patch TOPICAL DAILY [facility] PRN Reason: Protocol Last Admin: 06/25/17 08:43 Dose: 1 patch Magnesium Hydroxide (Milk Of Magnesia) 30 ml PO DAILY PRN PRN PRN Reason: Constipation Magnesium Oxide (Mag-Ox 400) 400 mg PO DAILY [facility] Last Admin: 06/25/17 08:42 Dose: 400 mg Multivitamins/Minerals (Ocuvite) 2 tablet PO DAILY [facility] Last Admin: 06/25/17 08:42 Dose: 2 tablet Psyllium Hydrophilic Mucilloid (Metamucil) 1 packet PO DAILY PRN PRN PRN Reason: CONSTIPATION Senna/Docusate Sodium (Senokot-S, Uma-Colace) 2 tablet PO BID [facility] Last Admin: 06/25/17 08:41 Dose: 2 tablet Sodium Chloride () 5 - 30 ml IV UD PRN PRN Reason: SALINE FLUSH Last Admin: 06/25/17 05:31 Dose: 10 ml Sodium Hypochlorite (Dakins Solution 0.25% (1/2 Strength)) 1 applic TOPICAL BID [facility] PRN Reason: Protocol Last Admin: 06/25/17 07:25 Dose: 1 applicatio Assessment/Plan Active and Suspected Problems A-fib (Acute) Severe sepsis (Acute) wound sepsis of previous wound (Acute) 1. Atrial fibrillation with RVR Currently normal sinus rhythm On amiodarone Anticoagulated with Eliquis 2. Severe sepsis Present on admission Secondary to infected back wound and bacteremia Clinically improving 3.Infected back wound Positive Pasteurella Will DC cefepime and transition over to Rocephin Consult infectious disease for further length of treatment and discharge medications 4. Bacteremia 1 of 2 sets positive for the pasteurella species Continue with antibiotics Repeat blood cultures drawn today, follow-up 5. Right hip pain Area was negative for any fracture showed a chronic endochondroma I am concerned, given the patient's back infection that there may be a deeper infection is back so I am going to do an MRI of his back to further evaluate that. 6. Chronic kidney disease stage 3 Stable. Monitor 7. Non-STEMI Clinically stable May be a type II event given the patient's severe sepsis, atrial fibrillation with RVR and bacteremia Follow-up with cardiology as outpatient 8. Cardiomyopathy Ejection fraction of 20%, this is down from 60% from August 11, 2013. On aspirin 9. DVT prophylaxis: Patient is on Eliquis Greater than 35 minutes of which greater than 50% of time was discussing with the patient and his the patient's hip and back pain, evaluation and pain control. Code Visit Inpatient E&M: [id number] [facility] Hosp L3
--- NOTE | 2017-06-25 11:04 | PN_ITS ---
Patient Problems: Active and Suspected Problems A-fib (Acute) Severe sepsis (Acute) wound sepsis of previous wound (Acute) Subjective: Patient with worsening back pain, did not sleep last night. Still with right hip pain as well. Vitals/I&O's: Vital Signs Temp Pulse Resp BP Pulse Ox 36.7 C 82 18 104/52 L 95 06/25/17 05:26 06/25/17 07:00 06/25/17 05:26 06/25/17 05:26 06/25/17 05:26 Oxygen Flow Rate 2 Oxygen Delivery Method Room Air Weight: 80.5 kg Body Mass Index (BMI) 25.4 Intake and Output for Last 24 Hours 06/23/17 06/24/17 06/25/17 23:59 23:59 23:59 Intake Total 1801.0 / 1801.0 1810 / 1810 240 / 240 Output Total 900 / 900 900 / 900 300 / 300 Balance 901.0 / 901.0 910 / 910 -60 / -60 General: Alert, - - D. Afebrile. HEENT: Atraumatic, Normocephalic Neck: No Nodes, Thyroid Normal Size and Texture Lungs: Clear to auscultation, Normal air movement, No rhonchi, No wheeze Cardiovascular: Regular rate, Regular Rhythm, Normal S1, Normal S2, No murmurs Abdomen: Bowel Sounds Present, Soft, Non Tender, Non-Distended, No Hepato- splenomegaly Extremities: No edema, No Calf Tenderness Skin: - - Back wound visualized. Packing was not removed. No erythema at the edges. Musculoskeletal: - - Paraspinal muscle tenderness on the back. Patient with exquisite tenderness with just moving slightly. Neurological: Neuro grossly intact, Muscle tone normal, - - no Clonus Psych/Mental Status: Normal Affect, Appropriate Microbiology Past 72 Hours 06/21/17 14:30 Blood Culture (Wb) - Other Blood Culture - Final Pasteurella multocida 06/21/17 13:05 Urine Catheter - Garcia Urine Culture - Final Culture exhibits no growth. 06/21/17 13:33 Wound - Other Gram Stain - Final 06/21/17 13:33 Wound - Other Wound Culture - Final Pasteurella multocida 06/21/17 15:05 Mucosa - Nasopharyngeal Respiratory Panel (PCR) - Final Laboratory Results 06/25/17 04:30: WBC 10.4, RBC 3.39 L, Hgb 10.8 L, Hct 33.2 L, MCV 97.9 H, MCH 31.9, MCHC 32.5, RDW 15.6 H, RDW Differential 55.4 H, Plt Count 308, MPV 10.3, Immature Gran % (Auto) 0.300, Neut % (Auto) 78.9 H, Lymph % (Auto) 10.5 L, [place] % (Auto) 10.0, Eos % (Auto) 0.2, Baso % (Auto) 0.1, Absolute Neuts (auto) 8.2 H , Absolute Lymphs (auto) 1.09, Total Counted Not Reportable, Nucleated RBC % 0.5 , Absolute Retic 0.05 06/25/17 04:30: Sodium 135 L, Potassium 3.5, Chloride 103, Carbon Dioxide 23.0, Anion Gap 9, BUN 71 H, Creatinine 2.08 H, Estim Creat Clear Calc 30.60, Est GFR (MDRD) Af Amer 40 L, Est GFR (MDRD) Non-Af 33 L, BUN/Creatinine Ratio 34.1 H, Glucose 100, Calcium 8.0 L, Magnesium 2.2 Current Medications Acetaminophen (Tylenol) 650 mg PO Q6H PRN PRN PRN Reason: pain/fever Last Admin: 06/25/17 04:02 Dose: 650 mg Amiodarone HCl (Cordarone) 200 mg PO DAILY [facility] Last Admin: 06/25/17 08:43 Dose: 200 mg Apixaban (Eliquis) 2.5 mg PO BID [facility] Last Admin: 06/25/17 08:41 Dose: 2.5 mg Aspirin (Ecotrin) 81 mg PO DAILY@0800 [facility] Last Admin: 06/25/17 08:41 Dose: 81 mg Atorvastatin Calcium (Lipitor) 20 mg PO QHS [facility] Last Admin: 06/24/17 21:07 Dose: 20 mg Famotidine (Pepcid) 20 mg PO DAILY [facility] Last Admin: 06/25/17 08:42 Dose: 20 mg Fentanyl (Duragesic) 25 mcg TRANSDERM. Q3D [facility] Last Admin: 06/22/17 13:52 Dose: 25 mcg Folic Acid (Folic Acid) 1 mg PO QHS [facility] Last Admin: 06/24/17 21:07 Dose: 1 mg Gabapentin (Neurontin) 100 mg PO TIDCM [facility] Last Admin: 06/25/17 08:41 Dose: 100 mg Hydromorphone HCl (Dilaudid) 2 mg PO Q4H PRN PRN PRN Reason: SEVERE PAIN (6-10/10) Last Admin: 06/25/17 10:49 Dose: 2 mg Ceftriaxone Sodium (Rocephin) 1 gm in 50 mls @ 100 mls/hr IV Q24 [facility] Last Admin: 06/25/17 08:44 Dose: 100 mls/hr Lidocaine (Lidoderm Patch) 1 patch TOPICAL DAILY [facility] PRN Reason: Protocol Last Admin: 06/25/17 08:43 Dose: 1 patch Magnesium Hydroxide (Milk Of Magnesia) 30 ml PO DAILY PRN PRN PRN Reason: Constipation Magnesium Oxide (Mag-Ox 400) 400 mg PO DAILY [facility] Last Admin: 06/25/17 08:42 Dose: 400 mg Multivitamins/Minerals (Ocuvite) 2 tablet PO DAILY [facility] Last Admin: 06/25/17 08:42 Dose: 2 tablet Psyllium Hydrophilic Mucilloid (Metamucil) 1 packet PO DAILY PRN PRN PRN Reason: CONSTIPATION Senna/Docusate Sodium (Senokot-S, Uma-Colace) 2 tablet PO BID [facility] Last Admin: 06/25/17 08:41 Dose: 2 tablet Sodium Chloride () 5 - 30 ml IV UD PRN PRN Reason: SALINE FLUSH Last Admin: 06/25/17 05:31 Dose: 10 ml Sodium Hypochlorite (Dakins Solution 0.25% (1/2 Strength)) 1 applic TOPICAL BID [facility] PRN Reason: Protocol Last Admin: 06/25/17 07:25 Dose: 1 applicatio Assessment/Plan Active and Suspected Problems A-fib (Acute) Severe sepsis (Acute) wound sepsis of previous wound (Acute) 1. Atrial fibrillation with RVR * Currently normal sinus rhythm * On amiodarone * Anticoagulated with Eliquis 2. Severe sepsis * Present on admission * Secondary to infected back wound and bacteremia * Clinically improving 3.Infected back wound * Positive Pasteurella * Will DC cefepime and transition over to Rocephin * Consult infectious disease for further length of treatment and discharge medications 4. Bacteremia * 1 of 2 sets positive for the pasteurella species * Continue with antibiotics * Repeat blood cultures drawn today, follow-up 5. Right hip pain * Area was negative for any fracture showed a chronic endochondroma * I am concerned, given the patient's back infection that there may be a deeper infection is back so I am going to do an MRI of his back to further evaluate that. 6. Chronic kidney disease stage 3 * Stable. Monitor 7. Non-STEMI * Clinically stable * May be a type II event given the patient's severe sepsis, atrial fibrillation with RVR and bacteremia * Follow-up with cardiology as outpatient 8. Cardiomyopathy * Ejection fraction of 20%, this is down from 60% from August 11, 2013. * On aspirin 9. DVT prophylaxis: Patient is on Eliquis Greater than 35 minutes of which greater than 50% of time was discussing with the patient and his the patient's hip and back pain, evaluation and pain control. Code Visit Inpatient E&M: [id number] [facility] Hosp L3
--- NOTE | 2017-06-25 11:04 | MRI_ITS ---
STUDY: MRI LUMBAR SPINE WITHOUT CONTRAST REASON FOR EXAM: Male, 72 years old. back pain, wound infection -- recheck chronic infection low back, large open wound lower back, hx cancer 2002, last surgery lumbar 02/2017,GFR 33. TECHNIQUE: Standardized fat and water weighted pulse sequences were obtained in the sagittal and axial planes. COMPARISON: October 05, 2016 FINDINGS: T12-L1: Normal endplates. Normal disc height, hydration and morphology. Normal bilateral facet joints. Normal central canal and bilateral lateral recesses. Normal bilateral intervertebral neural foramina. Normal lumbar lordosis. There is no substantial scoliosis. Normal conus medullaris that terminates at the L1 . Again noted is a heterogeneous bone marrow signal. L1-2: Normal endplates. Normal disc height, hydration and morphology. Normal bilateral facet joints. Normal central canal and bilateral lateral recesses. Normal bilateral intervertebral neural foramina. L2-3: Normal endplates. Normal disc height, hydration and morphology. Normal bilateral facet joints. Normal central canal and bilateral lateral recesses. Normal bilateral intervertebral neural foramina. L3-4: There is minimal disc space narrowing and endplate spondylosis. There is a minimal disc bulge and facet arthropathy without significant central canal or foraminal stenosis. There is posterior soft tissue changes with soft tissue defect. There are no fluid collections L4-5: There is mild disc space narrowing and endplate spondylosis. There is a mild disc bulge asymmetric to the right with mild right foraminal stenosis. There is no significant central canal or left foraminal stenosis. There is mild facet arthropathy. There is left hemilaminectomy. There is posterior soft tissue changes with soft tissue defect. There are no fluid collections L5-S1: Again noted is a right vertebral destruction at L5 without change since the prior examination. There is now right paracentral T2 hyperintense lobulated structure which measure approximately 2.0 x 1.0 x 3.5 cm. Evaluation is limited without IV contrast. There is resulting in severe lateral recess narrowing. There is moderate central canal stenosis as well. MRI/Spine Lumbar (Routine) IMPRESSION: L5/S1: Right epidural fluid collection. Given the history of infection finding is concerning for epidural abscess. Further evaluation with contrast-enhanced examination can be obtained. N.B. : The above information has been verbally conveyed by Juan Foster MD to Dr. Ady Cisneros, Covering Physician, on 06/25/2017 14:01:13 (ET). Electronically Signed: Juan Foster MD at 13:23 EST Tel , Service support , N.B. : The above information has been verbally conveyed by Juan Foster MD to Dr. Ady Cisneros, Covering Physician, on 06/25/2017 14:01:13 (ET).
--- NOTE | 2017-06-25 11:35 | CASEMGMT ---
SW was told Palliative Care received a consult, but have not received any information on patient. [facility]OLD faxed information to Palliative Care. Aidee CARMONA MSW
--- NOTE | 2017-06-25 11:41 | NURSING ---
wound photo: lower back
[2017-06-25] MEDS: fentaNYL 25 MCG Patch TRANSDERM. (11:44)
[2017-06-25] MEDS: HYDROmorphone 1 MG/ML Syringe IV (11:44)
[2017-06-25] MEDS: LORazepam 1 MG Tablet PO (11:44)
--- NOTE | 2017-06-25 15:29 | PCM.PN.REN ---
Patient Problems: Active and Suspected Problems A-fib (Acute) Severe sepsis (Acute) wound sepsis of previous wound (Acute) Subjective: Following for BRIANA on CKD. Pt is tired. No chest pain or SOB. No edema. However, appetite is poor. - Physical Exam General: Alert, Cooperative HEENT: Atraumatic, Normocephalic Oral: Dry Mucosa Neck: Supple Lungs: Clear to auscultation Cardiovascular: Normal S1, Normal S2, No rub noted Abdomen: Bowel Sounds Present, Soft, Non Tender Extremities: No edema Vital Signs Temp Pulse Resp BP Pulse Ox 98.6 F 88 18 134/69 H 100 06/25/17 11:25 06/25/17 15:00 06/25/17 11:25 06/25/17 11:25 06/25/17 11:25 Oxygen Flow Rate 2 Oxygen Delivery Method Room Air Weight: 80.5 kg Body Mass Index (BMI) 25.4 Intake and Output for Last 24 Hours 06/23/17 06/24/17 06/25/17 23:59 23:59 23:59 Intake Total 1801.0 / 1801.0 1810 / 1810 702 / 702 Output Total 900 / 900 900 / 900 300 / 300 Balance 901.0 / 901.0 910 / 910 402 / 402 Microbiology Past 72 Hours 06/21/17 14:30 Blood Culture - Final Blood Culture (Wb) - Other Pasteurella multocida 06/21/17 13:05 Urine Culture - Final Urine Catheter - Garcia Culture exhibits no growth. 06/21/17 13:33 Gram Stain - Final Wound - Other Wound Culture - Final Pasteurella multocida 06/21/17 15:05 Respiratory Panel (PCR) - Final Mucosa - Nasopharyngeal Laboratory Tests Past 24 Hrs 06/25/17 06/25/17 04:30 04:30 WBC 10.4 RBC 3.39 L Hgb 10.8 L Hct 33.2 L MCV 97.9 H MCH 31.9 MCHC 32.5 RDW 15.6 H RDW Differential 55.4 H Plt Count 308 MPV 10.3 Immature Gran % (Auto) 0.300 Neut % (Auto) 78.9 H Lymph % (Auto) 10.5 L [place] % (Auto) 10.0 Eos % (Auto) 0.2 Baso % (Auto) 0.1 Absolute Neuts (auto) 8.2 H Absolute Lymphs (auto) 1.09 Total Counted Not Reportable Nucleated RBC % 0.5 Absolute Retic 0.05 Sodium 135 L Potassium 3.5 Chloride 103 Carbon Dioxide 23.0 Anion Gap 9 BUN 71 H Creatinine 2.08 H Estim Creat Clear Calc 30.60 Est GFR (MDRD) Af Amer 40 L Est GFR (MDRD) Non-Af 33 L BUN/Creatinine Ratio 34.1 H Glucose 100 Calcium 8.0 L Magnesium 2.2 Assessment/Plan Active and Suspected Problems A-fib (Acute) Severe sepsis (Acute) wound sepsis of previous wound (Acute) 1. Acute kidney injury on chronic kidney disease stage 3. baseline SCr 1.8. CKD is thought to be secondary to prior tubular and interstitial injury from ATN/AIN. He is followed by Dr. Haines in our office. Current BRIANA is likely due to ischemic ATN. Renal function has stabilized over the past 72 hrs. Almost back to baseline from the renal standpoint. No current need for dialysis. Keep I=O. Encouraged oral intake. Meds were reviewed. 2. Severe sepsis/GNR BSI. Improving. Antibiotic as per hospital medicine service and ID. Pt likely needs surgical debridement of back wound. Plans are being formulated by hospital med, plastic and ID services. 3. hypomagnesemia. On MagOx. Mg level is acceptable. Continue MagOx for now. 4. NSTEMI. Likely demand ischemia. Cardiology following.
[2017-06-25 19:02] LABS: Urine Sodium 31 mmol/L (Not Establ.)
[2017-06-25] MEDS: Folic Acid 1 MG Tablet PO (21:44)
[2017-06-25] MEDS: Atorvastatin Calcium 20 MG Tablet PO (21:44)
[2017-06-26] VITALS (7 sets, daily range): BP systolic 124–133; BP diastolic 64–70; PULSE 76–100; RESP 14–18; TEMP 36.8–37.6; O2SAT 95–98
[2017-06-26] MEDS: 0.9% NaCl Peripheral Flush Adult/Peds IV ×3 (04:32→18:29)
[2017-06-26 05:10] LABS: Absolute Lymphocyte Count 0.73 X10^3/ul (0.83-4.51); Absolute Neutrophil Count 10.3 X10^3/uL (2.0-7.7); Basophil# 0.01 X10^3/uL; Basophil% 0.1 % (0-1); Eosinophil# 0.01 X10^3/uL; Eosinophils% 0.1 % (0-5); Hemoglobin 10.4 g/dl (13.0-16.5); Lymphocyte # 0.73 X10^3/ul (4.0); Mean Corp Hgb Conc 32.5 g/gl (32-36); Mean Corpuscular Hgb 31.9 pg (27.0-32.0); Mean Corpuscular Volume 98.2 fL (80-94); Mean Platelet Vol. 10.5 fl (6.2-12.0); Monocyte# 1.06 X10^3/uL; Monocyte% 8.7 % (0-10); Neutrophil # 10.27 X10^3/uL (2.7-7.7); Neutrophil % 84.7 % (47-70); Platelet Count 324 K/mm3 (150-450); RBC Distribution Width CV 15.4 % (11.6-14.6); RBC Distribution Width SD 55.3 fl (35.1-43.9); Red Blood Count 3.26 M/mm3 (4.6-6.2); White Blood Count 12.1 K/mm3 (4.4-11.0)
[2017-06-26 05:11] LABS: Absolute Nucleated RBC Count 0.02 10^3/uL (0-5); NRBC Flagged by Analyzer 0.1 % (0-5); POSITIVE COUNT NO; POSITIVE DIFFERENTIAL NO; POSITIVE MORPHOLOGY NO
[2017-06-26 05:23] LABS: Anion Gap 8 (5-15); BUN 64 mg/dL (7-18); BUN/Creat Ratio 33.9 RATIO (10-20); Calcium,Total 8.1 mg/dL (8.5-10.1); Chloride 105 mmol/L (98-107); Creatinine, Serum 1.89 mg/dL (0.70-1.30); EST Glomerular Filtration Rate 37 mL/min (>60); Est Glom Filt Rate - Afr Amer 45 mL/min (>60); Estimated Creatinine Clearance 33.68 ml/min; Glucose 96 mg/dL (74-106); Potassium 3.6 mmol/L (3.5-5.1); Sodium Level 136 mmol/L (136-145)
[2017-06-26] MEDS: HYDROmorphone 2 MG TABLET PO (08:13)
[2017-06-26] MEDS: Lidocaine 5% Patch 1 PATCH TOPICAL (08:15)
[2017-06-26] MEDS: Gabapentin 100 MG Capsule PO ×3 (08:15→16:31)
[2017-06-26] MEDS: Aspirin E.C. 81 MG Tablet PO (08:15)
[2017-06-26] MEDS: Amiodarone 200 MG Tablet PO (08:15)
[2017-06-26] MEDS: APIXABAN 2.5 MG TABLET PO (08:15)
[2017-06-26] MEDS: Famotidine 20 MG Tablet PO (08:16)
[2017-06-26] MEDS: Magnesium Oxide 400 MG Tablet PO (08:16)
--- NOTE | 2017-06-26 09:17 | PCM.PN.HOSP ---
Patient Problems: Active and Suspected Problems Epidural abscess (Acute) A-fib (Acute) Severe sepsis (Acute) wound sepsis of previous wound (Acute) Subjective: Patient seen this pain is excruciating. Did not qualify if this is worse for the same as yesterday. Patient seen in the midst of getting a dressing change and had received IV Dilaudid shortly before and states that his pain is still not controlled. Vitals/I&O's: Vital Signs Temp Pulse Resp BP Pulse Ox 37.1 C 91 14 133/64 H 95 06/26/17 08:31 06/26/17 08:31 06/26/17 08:31 06/26/17 08:31 06/26/17 08:31 Oxygen Flow Rate 2 Oxygen Delivery Method Room Air Weight: 80.3 kg Body Mass Index (BMI) 25.4 Intake and Output for Last 24 Hours 06/24/17 06/25/17 06/26/17 23:59 23:59 23:59 Intake Total 1810 / 1810 1142 / 1142 Output Total 900 / 900 910 / 910 250 / 250 Balance 910 / 910 232 / 232 -250 / -250 General: Alert, - - Uncomfortable. Yelling primarily in pain but also just feeling out answers in regards to saying it is excruciating pain when asked about his level of pain. HEENT: Atraumatic, Normocephalic Neck: No Nodes, Thyroid Normal Size and Texture Lungs: Clear to auscultation, Normal air movement, No rhonchi, No wheeze Cardiovascular: Regular rate, Regular Rhythm, Normal S1, Normal S2, No murmurs Abdomen: Bowel Sounds Present, Soft, Non Tender, Non-Distended, No Hepato-splenomegaly Extremities: No edema, No Calf Tenderness Skin: - - Back wound visualized with wound care. Margins are clean. Granulation tissue noted. No laly purulence was noted. Musculoskeletal: No Tenderness to Palpation of Joints or Extremities, No Muscle Wasting Neurological: - - On examination due to pain Psych/Mental Status: Agitated Microbiology Past 72 Hours 06/24/17 08:03 Blood Culture (Wb) - Port Blood Culture - Preliminary No growth in 48 hours. 06/24/17 08:10 Blood Culture (Wb) - Anticubital Left Blood Culture - Preliminary No growth in 48 hours. 06/21/17 14:30 Blood Culture (Wb) - Other Blood Culture - Final Pasteurella multocida 06/21/17 13:05 Urine Catheter - Garcia Urine Culture - Final Culture exhibits no growth. 06/21/17 13:33 Wound - Other Gram Stain - Final 06/21/17 13:33 Wound - Other Wound Culture - Final Pasteurella multocida Laboratory Results 06/25/17 16:59: Urine Creatinine 63.10 06/25/17 16:59: Ur Random Sodium 31 06/26/17 04:30: WBC 12.1 H, RBC 3.26 L, Hgb 10.4 L, Hct 32.0 L, MCV 98.2 H, MCH 31.9, MCHC 32.5, RDW 15.4 H, RDW Differential 55.3 H, Plt Count 324, MPV 10.5, Immature Gran % (Auto) 0.400, Neut % (Auto) 84.7 H, Lymph % (Auto) 6.0 L, [place] % (Auto) 8.7, Eos % (Auto) 0.1, Baso % (Auto) 0.1, Absolute Neuts (auto) 10.3 H, Absolute Lymphs (auto) 0.73 L, Total Counted Not Reportable, Nucleated RBC % 0.1, Absolute Retic 0.02 06/26/17 04:30: Sodium 136, Potassium 3.6, Chloride 105, Carbon Dioxide 23.0, Anion Gap 8, BUN 64 H, Creatinine 1.89 H, Estim Creat Clear Calc 33.68, Est GFR (MDRD) Af Amer 45 L, Est GFR (MDRD) Non-Af 37 L, BUN/Creatinine Ratio 33.9 H, Glucose 96, Calcium 8.1 L Current Medications Acetaminophen (Tylenol) 650 mg PO Q6H PRN PRN PRN Reason: pain/fever Last Admin: 06/25/17 11:44 Dose: 650 mg Amiodarone HCl (Cordarone) 200 mg PO DAILY [facility] Last Admin: 06/26/17 08:15 Dose: 200 mg Apixaban (Eliquis) 2.5 mg PO BID [facility] Last Admin: 06/26/17 08:15 Dose: 2.5 mg Aspirin (Ecotrin) 81 mg PO DAILY@0800 [facility] Last Admin: 06/26/17 08:15 Dose: 81 mg Atorvastatin Calcium (Lipitor) 20 mg PO QHS [facility] Last Admin: 06/25/17 21:44 Dose: 20 mg Famotidine (Pepcid) 20 mg PO DAILY [facility] Last Admin: 06/26/17 08:16 Dose: 20 mg Fentanyl (Duragesic) 25 mcg TRANSDERM. Q3D [facility] Last Admin: 06/25/17 11:44 Dose: 25 mcg Folic Acid (Folic Acid) 1 mg PO QHS [facility] Last Admin: 06/25/17 21:44 Dose: 1 mg Gabapentin (Neurontin) 100 mg PO TIDCM [facility] Last Admin: 06/26/17 08:15 Dose: 100 mg Hydromorphone HCl (Dilaudid) 2 mg PO Q4H PRN PRN PRN Reason: SEVERE PAIN (6-10/10) Last Admin: 06/26/17 08:13 Dose: 2 mg Ceftriaxone Sodium (Rocephin) 1 gm in 50 mls @ 100 mls/hr IV Q24 [facility] Last Admin: 06/25/17 08:44 Dose: 100 mls/hr Lidocaine (Lidoderm Patch) 1 patch TOPICAL DAILY [facility] PRN Reason: Protocol Last Admin: 06/26/17 08:15 Dose: 1 patch Magnesium Hydroxide (Milk Of Magnesia) 30 ml PO DAILY PRN PRN PRN Reason: Constipation Magnesium Oxide (Mag-Ox 400) 400 mg PO DAILY [facility] Last Admin: 06/26/17 08:16 Dose: 400 mg Multivitamins/Minerals (Ocuvite) 2 tablet PO DAILY [facility] Last Admin: 06/26/17 08:16 Dose: 2 tablet Psyllium Hydrophilic Mucilloid (Metamucil) 1 packet PO DAILY PRN PRN PRN Reason: CONSTIPATION Senna/Docusate Sodium (Senokot-S, Uma-Colace) 2 tablet PO BID [facility] Last Admin: 06/26/17 08:16 Dose: Not Given Sodium Chloride () 5 - 30 ml IV UD PRN PRN Reason: SALINE FLUSH Last Admin: 06/26/17 04:32 Dose: 20 ml Sodium Hypochlorite (Dakins Solution 0.25% (1/2 Strength)) 1 applic TOPICAL BID [facility] PRN Reason: Protocol Last Admin: 06/26/17 08:19 Dose: 1 applicatio Assessment/Plan Active and Suspected Problems Epidural abscess (Acute) A-fib (Acute) Severe sepsis (Acute) wound sepsis of previous wound (Acute) 1. epidural abscess noted on MRI Plan is for the patient to go to the [facility] and be evaluated by neurosurgery or for definitive management. Continue with antibiotics. Given the positive wound culture and bacteremia for the same organism patient is continue with Rocephin for the pasteurella. Patient with severe pain that is not adequately relieved with the 2 mg of Dilaudid. Will increase the dose and frequency to 2-3 every 3 hours as needed from 2 mg every 4 hours as needed. Likely the epidural abscess was present on admission the patient had no imaging to validate that. Patient's pain, however, did get worse clearly during the and the . As mentioned previous documentation, patient did not want to go back to the [facility] who did the initial spine surgery and he and his are requesting [facility]. [facility] as I have been told has a bed and the patient will be transferred up there hopefully this morning but may not be into the afternoon. 2. Atrial fibrillation with RVR Currently normal sinus rhythm On amiodarone Anticoagulated with Eliquis 3. Severe sepsis Present on admission Secondary to infected back wound, epidural abscess and bacteremia 4. Infected back wound Positive Pasteurella Rocephin infectious disease following 5. Bacteremia 1 of 2 sets positive for the pasteurella species Continue with antibiotics Repeat blood cultures on the are so far negative. 6. Right hip pain xray was negative for any fracture showed a chronic endochondroma Speck that this is radicular given the epidural abscesses. 7. Chronic kidney disease stage 3 Stable. Monitor Nephrology following 8. Non-STEMI Clinically stable May be a type II event given the patient's severe sepsis, atrial fibrillation with RVR and bacteremia Follow-up with cardiology as outpatient 9. Cardiomyopathy Ejection fraction of 20%, this is down from 60% from August 11, 2013. On aspirin 9. DVT prophylaxis: Patient is on Eliquis
[2017-06-26] MEDS: Ceftriaxone 1 GM/50 ML BAG IV (09:23)
--- NOTE | 2017-06-26 09:25 | PN_ITS ---
Patient Problems: Active and Suspected Problems Epidural abscess (Acute) A-fib (Acute) Severe sepsis (Acute) wound sepsis of previous wound (Acute) Subjective: Patient seen this pain is excruciating. Did not qualify if this is worse for the same as yesterday. Patient seen in the midst of getting a dressing change and had received IV Dilaudid shortly before and states that his pain is still not controlled. Vitals/I&O's: Vital Signs Temp Pulse Resp BP Pulse Ox 37.1 C 91 14 133/64 H 95 06/26/17 08:31 06/26/17 08:31 06/26/17 08:31 06/26/17 08:31 06/26/17 08:31 Oxygen Flow Rate 2 Oxygen Delivery Method Room Air Weight: 80.3 kg Body Mass Index (BMI) 25.4 Intake and Output for Last 24 Hours 06/24/17 06/25/17 06/26/17 23:59 23:59 23:59 Intake Total 1810 / 1810 1142 / 1142 Output Total 900 / 900 910 / 910 250 / 250 Balance 910 / 910 232 / 232 -250 / -250 General: Alert, - - Uncomfortable. Yelling primarily in pain but also just feeling out answers in regards to saying it is excruciating pain when asked about his level of pain. HEENT: Atraumatic, Normocephalic Neck: No Nodes, Thyroid Normal Size and Texture Lungs: Clear to auscultation, Normal air movement, No rhonchi, No wheeze Cardiovascular: Regular rate, Regular Rhythm, Normal S1, Normal S2, No murmurs Abdomen: Bowel Sounds Present, Soft, Non Tender, Non-Distended, No Hepato- splenomegaly Extremities: No edema, No Calf Tenderness Skin: - - Back wound visualized with wound care. Margins are clean. Granulation tissue noted. No laly purulence was noted. Musculoskeletal: No Tenderness to Palpation of Joints or Extremities, No Muscle Wasting Neurological: - - On examination due to pain Psych/Mental Status: Agitated Microbiology Past 72 Hours 06/24/17 08:03 Blood Culture (Wb) - Port Blood Culture - Preliminary No growth in 48 hours. 06/24/17 08:10 Blood Culture (Wb) - Anticubital Left Blood Culture - Preliminary No growth in 48 hours. 06/21/17 14:30 Blood Culture (Wb) - Other Blood Culture - Final Pasteurella multocida 06/21/17 13:05 Urine Catheter - Garcia Urine Culture - Final Culture exhibits no growth. 06/21/17 13:33 Wound - Other Gram Stain - Final 06/21/17 13:33 Wound - Other Wound Culture - Final Pasteurella multocida Laboratory Results 06/25/17 16:59: Urine Creatinine 63.10 06/25/17 16:59: Ur Random Sodium 31 06/26/17 04:30: WBC 12.1 H, RBC 3.26 L, Hgb 10.4 L, Hct 32.0 L, MCV 98.2 H, MCH 31.9, MCHC 32.5, RDW 15.4 H, RDW Differential 55.3 H, Plt Count 324, MPV 10.5, Immature Gran % (Auto) 0.400, Neut % (Auto) 84.7 H, Lymph % (Auto) 6.0 L, [place] % (Auto) 8.7, Eos % (Auto) 0.1, Baso % (Auto) 0.1, Absolute Neuts (auto) 10.3 H , Absolute Lymphs (auto) 0.73 L, Total Counted Not Reportable, Nucleated RBC % 0.1, Absolute Retic 0.02 06/26/17 04:30: Sodium 136, Potassium 3.6, Chloride 105, Carbon Dioxide 23.0, Anion Gap 8, BUN 64 H, Creatinine 1.89 H, Estim Creat Clear Calc 33.68, Est GFR (MDRD) Af Amer 45 L, Est GFR (MDRD) Non-Af 37 L, BUN/Creatinine Ratio 33.9 H, Glucose 96, Calcium 8.1 L Current Medications Acetaminophen (Tylenol) 650 mg PO Q6H PRN PRN PRN Reason: pain/fever Last Admin: 06/25/17 11:44 Dose: 650 mg Amiodarone HCl (Cordarone) 200 mg PO DAILY [facility] Last Admin: 06/26/17 08:15 Dose: 200 mg Apixaban (Eliquis) 2.5 mg PO BID [facility] Last Admin: 06/26/17 08:15 Dose: 2.5 mg Aspirin (Ecotrin) 81 mg PO DAILY@0800 [facility] Last Admin: 06/26/17 08:15 Dose: 81 mg Atorvastatin Calcium (Lipitor) 20 mg PO QHS [facility] Last Admin: 06/25/17 21:44 Dose: 20 mg Famotidine (Pepcid) 20 mg PO DAILY [facility] Last Admin: 06/26/17 08:16 Dose: 20 mg Fentanyl (Duragesic) 25 mcg TRANSDERM. Q3D [facility] Last Admin: 06/25/17 11:44 Dose: 25 mcg Folic Acid (Folic Acid) 1 mg PO QHS [facility] Last Admin: 06/25/17 21:44 Dose: 1 mg Gabapentin (Neurontin) 100 mg PO TIDCM [facility] Last Admin: 06/26/17 08:15 Dose: 100 mg Hydromorphone HCl (Dilaudid) 2 mg PO Q4H PRN PRN PRN Reason: SEVERE PAIN (6-10/10) Last Admin: 06/26/17 08:13 Dose: 2 mg Ceftriaxone Sodium (Rocephin) 1 gm in 50 mls @ 100 mls/hr IV Q24 [facility] Last Admin: 06/25/17 08:44 Dose: 100 mls/hr Lidocaine (Lidoderm Patch) 1 patch TOPICAL DAILY [facility] PRN Reason: Protocol Last Admin: 06/26/17 08:15 Dose: 1 patch Magnesium Hydroxide (Milk Of Magnesia) 30 ml PO DAILY PRN PRN PRN Reason: Constipation Magnesium Oxide (Mag-Ox 400) 400 mg PO DAILY [facility] Last Admin: 06/26/17 08:16 Dose: 400 mg Multivitamins/Minerals (Ocuvite) 2 tablet PO DAILY [facility] Last Admin: 06/26/17 08:16 Dose: 2 tablet Psyllium Hydrophilic Mucilloid (Metamucil) 1 packet PO DAILY PRN PRN PRN Reason: CONSTIPATION Senna/Docusate Sodium (Senokot-S, Uma-Colace) 2 tablet PO BID [facility] Last Admin: 06/26/17 08:16 Dose: Not Given Sodium Chloride () 5 - 30 ml IV UD PRN PRN Reason: SALINE FLUSH Last Admin: 06/26/17 04:32 Dose: 20 ml Sodium Hypochlorite (Dakins Solution 0.25% (1/2 Strength)) 1 applic TOPICAL BID [facility] PRN Reason: Protocol Last Admin: 06/26/17 08:19 Dose: 1 applicatio Assessment/Plan Active and Suspected Problems Epidural abscess (Acute) A-fib (Acute) Severe sepsis (Acute) wound sepsis of previous wound (Acute) 1. epidural abscess * noted on MRI * Plan is for the patient to go to the [facility] and be evaluated by neurosurgery or for definitive management. * Continue with antibiotics. Given the positive wound culture and bacteremia for the same organism patient is continue with Rocephin for the pasteurella. * Patient with severe pain that is not adequately relieved with the 2 mg of Dilaudid. Will increase the dose and frequency to 2-3 every 3 hours as needed from 2 mg every 4 hours as needed. * Likely the epidural abscess was present on admission the patient had no imaging to validate that. Patient's pain, however, did get worse clearly during the and the . * As mentioned previous documentation, patient did not want to go back to the [facility] who did the initial spine surgery and he and his are requesting [facility]. [facility] as I have been told has a bed and the patient will be transferred up there hopefully this morning but may not be into the afternoon. 2. Atrial fibrillation with RVR * Currently normal sinus rhythm * On amiodarone * Anticoagulated with Eliquis 3. Severe sepsis * Present on admission * Secondary to infected back wound, epidural abscess and bacteremia 4. Infected back wound * Positive Pasteurella * Rocephin * infectious disease following 5. Bacteremia * 1 of 2 sets positive for the pasteurella species * Continue with antibiotics * Repeat blood cultures on the are so far negative. 6. Right hip pain * xray was negative for any fracture showed a chronic endochondroma * Speck that this is radicular given the epidural abscesses. 7. Chronic kidney disease stage 3 * Stable. Monitor * Nephrology following 8. Non-STEMI * Clinically stable * May be a type II event given the patient's severe sepsis, atrial fibrillation with RVR and bacteremia * Follow-up with cardiology as outpatient 9. Cardiomyopathy * Ejection fraction of 20%, this is down from 60% from August 11, 2013. * On aspirin 9. DVT prophylaxis: Patient is on Eliquis
--- NOTE | 2017-06-26 09:25 | PCM.DC.SUM ---
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) nonhealing ulcer lumbar back area Open wound of lower back (Chronic) with muscle and bone exposed s/p surgical debridement of abscess s/p lumbar spine surgery Chronic ulcer of right leg with fat layer exposed (Chronic) Lumbar disc disease (Chronic) Edema of both legs (Chronic) Leg swelling (Chronic) History of diverticulitis (Chronic) Hyperlipidemia (Chronic) Back pain at L4-L5 level (Chronic) History of non-Hodgkin's lymphoma (Chronic) Hypertension (Chronic) Shortness of breath (Chronic) Hypoxia (Chronic) History of atrial fibrillation (Chronic) Surgical wound dehiscence (Chronic) Renal insufficiency (Chronic) Soft tissue radionecrosis (Chronic) Ulcer of left heel and midfoot with fat layer exposed (Chronic) Decubitus ulcer, heel, right, unstageable (Chronic) Peripheral vascular disease (Chronic) Edema, lower extremity (Chronic) Malnutrition (Chronic) Pressure ulcer, back, lower (Chronic) Ulcer of right foot with fat layer exposed (Chronic) Decubitus ulcer of right foot, unstageable (Chronic) Peripheral vascular disease (Chronic) Ulcer of right lower extremity with fat layer exposed (Chronic) Tinea unguium (Chronic) Hospital Course and Treatment Imaging Results: Clinical Impression(s) from Imaging Studies Chest X-Ray 06/21/17 09:01 IMPRESSION: 1. Increasing pulmonary congestion. 2. Mild cardiomegaly. Electronically Signed: Kalie Sanabria MD at 9:37 EST , Service support , Brain CT 06/21/17 09:10 IMPRESSION: 1. Chronic involutional changes of the brain. 2. 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 3. No CT evidence of acute intracranial hemorrhage. 4. Possible acute left ethmoid sinus disease. Electronically Signed: Kalie Sanabria MD at 10:30 EST , Service support , Chest X-Ray 06/21/17 14:34 IMPRESSION: 1. Mild cardiomegaly and pulmonary congestion. 2. Appropriate positioning of right-sided central line without evidence for pneumothorax. Electronically Signed: Kalie Sanabria MD at 15:10 EST , Service support , Soft Tissue Neck CT 06/23/17 13:15 IMPRESSION: 1. 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 2. No CT evidence of any suspicious mass in the suprahyoid neck and infrahyoid neck. 3. Atherosclerotic calcifications of both carotid arteries, both common carotid bifurcations in both internal carotid arteries. Additional atherosclerotic calcifications of the innominate artery and left subclavian artery. 4. Pronounced degenerative disc space height narrowing at C5-C6 and C6-C7 disc space levels with minimal anterior and posterior marginal spurs. 5. Mild C4-C5 degenerative disc space height narrowing. Electronically Signed: Otto Renteria MD at 15:56 EST , Service support , Hip/Pelvis X-Ray 06/24/17 16:18 IMPRESSION: 1. No fracture or malalignment. 2. 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 Stable since 2013. Electronically Signed: Calos Nolan MD at 20:38 EST , Service support , Lumbar Spine MRI 06/25/17 11:04 IMPRESSION: L5/S1: Right epidural fluid collection. Given the history of infection finding is concerning for epidural abscess. Further evaluation with contrast-enhanced examination can be obtained. N.B. : The above information has been verbally conveyed by Juan Foster MD to Dr. Ady Cisneros, Covering Physician, on 06/25/2017 14:01:13 (ET). Electronically Signed: Juan Foster MD at 13:23 EST Tel , Service support , N.B. : The above information has been verbally conveyed by Juan Foster MD to Dr. Ady Cisneros, Covering Physician, on 06/25/2017 14:01:13 (ET). Consultations 06/21/17 12:49 Consult: Onc/Wound/pneumatic drum sander Routine Comment: Large sacral decubitus wound Dr. Mendes, CCM Dr. Poon, Cardiology Drs. Meyers and Wilber of nephrology Procedures: 2-D Echocardiogram, - - Right IJ TLC Summary of Care Provided: The patient is a 72 year old M severe sepsis, infected back wound, atrial fibrillation with RVR, non-STEMI. Subsequently patient was found to have bacteremia of the same organism infecting his back and epidural abscess. Patient is to go to the [facility] for evaluation by tooling specialist in regards to the epidural abscesses. 1. epidural abscess noted on MRI Plan is for the patient to go to the [facility] and be evaluated by neurosurgery or for definitive management. Continue with antibiotics. Given the positive wound culture and bacteremia for the same organism patient is continue with Rocephin for the pasteurella. Patient with severe pain that is not adequately relieved with the 2 mg of Dilaudid. Will increase the dose and frequency to 2-3 every 3 hours as needed from 2 mg every 4 hours as needed. Likely the epidural abscess was present on admission the patient had no imaging to validate that. Patient's pain, however, did get worse clearly during the and the . As mentioned previous documentation, patient did not want to go back to the [facility] who did the initial spine surgery and he and his are requesting [facility]. [facility] as I have been told has a bed and the patient will be transferred up there hopefully this morning but may not be into the afternoon. 2. Atrial fibrillation with RVR Currently normal sinus rhythm On amiodarone Anticoagulated with Eliquis 3. Severe sepsis Present on admission Secondary to infected back wound, epidural abscess and bacteremia 4. Infected back wound Positive Pasteurella Rocephin infectious disease following 5. Bacteremia 1 of 2 sets positive for the pasteurella species Continue with antibiotics Repeat blood cultures on the are so far negative. 6. Right hip pain xray was negative for any fracture showed a chronic endochondroma Speck that this is radicular given the epidural abscesses. 7. Chronic kidney disease stage 3 Stable. Monitor Nephrology following 8. Non-STEMI Clinically stable May be a type II event given the patient's severe sepsis, atrial fibrillation with RVR and bacteremia Follow-up with cardiology as outpatient 9. Cardiomyopathy Ejection fraction of 20%, this is down from 60% from August 11, 2013. On aspirin 9. DVT prophylaxis: Patient is on Eliquis [] Discharge Diet: Low fat/ Low Cholesterol Discharge Activity: - - Activity as directed by the medical lab tech instructor and therapist Call your doctor if you observe: Fever of 101 or Higher, Shortness of breath, - - Worsening back pain Home Medications: Medications to take at Discharge Ferrous Gluconate 240 mg PO BID 02/05/16 Folic Acid 1 mg PO QHS 02/05/16 Magnesium Oxide [Magnesium] 400 mg PO DAILY 02/05/16 Metoprolol Tartrate [Lopressor (beta yaquelin)] 12.5 mg PO BID 02/05/16 Apixaban [Eliquis] 2.5 mg PO BID 03/16/16 Cholecalciferol (Vitamin D3) [Vitamin D3] 1,000 unit PO QHS 10/14/16 Gabapentin [Neurontin] 100 mg PO BIDCM #60 capsule 10/25/16 Oxycodone [Oxyir] 30 mg PO PRN PRN 02/13/17 atorvastatin 20 mg tablet 20 mg PO QDAY #90 tab 05/16/17 Vit C/E/Zn/Coppr/Lutein/Zeaxan [Preservision Areds 2 Softgel] 2 each PO DAILY 06/21/17 Primary Care Physician: Bernardo Lawson DO [Primary Care Provider] - Within 2 Weeks Please Follow Up With: Andi Avalos MD - Cardiology When: 2-4 weeks Disposition: Acute care Hospital Minutes spent on discharge:: 35 Patient Condition:: Stable Meaningful Use Info Meaningful Use Diagnoses (Choose all that apply): AMI - AMI Aspirin given w/in 24hrs of arrival?: Yes ASA at discharge?: Yes Statins at discharge?: Yes Thierry/ARB at discharge?: No Reason Thierry/ARB not ordered:: Worsening renal disease Beta Yaquelin at discharge?: Yes Done w/ Acute [place] measure.: Yes Code Visit Inpatient E&M: 74855 Disch Hosp
--- NOTE | 2017-06-26 09:31 | DS.PCM_ITS ---
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) nonhealing ulcer lumbar back area Open wound of lower back (Chronic) with muscle and bone exposed s/p surgical debridement of abscess s/p lumbar spine surgery Chronic ulcer of right leg with fat layer exposed (Chronic) Lumbar disc disease (Chronic) Edema of both legs (Chronic) Leg swelling (Chronic) History of diverticulitis (Chronic) Hyperlipidemia (Chronic) Back pain at L4-L5 level (Chronic) History of non-Hodgkin's lymphoma (Chronic) Hypertension (Chronic) Shortness of breath (Chronic) Hypoxia (Chronic) History of atrial fibrillation (Chronic) Surgical wound dehiscence (Chronic) Renal insufficiency (Chronic) Soft tissue radionecrosis (Chronic) Ulcer of left heel and midfoot with fat layer exposed (Chronic) Decubitus ulcer, heel, right, unstageable (Chronic) Peripheral vascular disease (Chronic) Edema, lower extremity (Chronic) Malnutrition (Chronic) Pressure ulcer, back, lower (Chronic) Ulcer of right foot with fat layer exposed (Chronic) Decubitus ulcer of right foot, unstageable (Chronic) Peripheral vascular disease (Chronic) Ulcer of right lower extremity with fat layer exposed (Chronic) Tinea unguium (Chronic) Hospital Course and Treatment Imaging Results: Clinical Impression(s) from Imaging Studies Chest X-Ray 06/21/17 09:01 IMPRESSION: 1. Increasing pulmonary congestion. 2. Mild cardiomegaly. Electronically Signed: Kalie Sanabria MD at 9:37 EST , Service support , Brain CT 06/21/17 09:10 IMPRESSION: 1. Chronic involutional changes of the brain. 2. 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 3. No CT evidence of acute intracranial hemorrhage. 4. Possible acute left ethmoid sinus disease. Electronically Signed: Kalie Sanabria MD at 10:30 EST , Service support , Chest X-Ray 06/21/17 14:34 IMPRESSION: 1. Mild cardiomegaly and pulmonary congestion. 2. Appropriate positioning of right-sided central line without evidence for pneumothorax. Electronically Signed: Kalie Sanabria MD at 15:10 EST , Service support , Soft Tissue Neck CT 06/23/17 13:15 IMPRESSION: 1. 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 2. No CT evidence of any suspicious mass in the suprahyoid neck and infrahyoid neck. 3. Atherosclerotic calcifications of both carotid arteries, both common carotid bifurcations in both internal carotid arteries. Additional atherosclerotic calcifications of the innominate artery and left subclavian artery. 4. Pronounced degenerative disc space height narrowing at C5-C6 and C6-C7 disc space levels with minimal anterior and posterior marginal spurs. 5. Mild C4-C5 degenerative disc space height narrowing. Electronically Signed: Otto Renteria MD at 15:56 EST , Service support , Hip/Pelvis X-Ray 06/24/17 16:18 IMPRESSION: 1. No fracture or malalignment. 2. 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 Stable since 2013. Electronically Signed: Calos Nolan MD at 20:38 EST , Service support , Lumbar Spine MRI 06/25/17 11:04 IMPRESSION: L5/S1: Right epidural fluid collection. Given the history of infection finding is concerning for epidural abscess. Further evaluation with contrast-enhanced examination can be obtained. N.B. : The above information has been verbally conveyed by Juan Foster MD to Dr. Ady Cisneros, Covering Physician, on 06/25/2017 14:01:13 (ET). Electronically Signed: Juan Foster MD at 13:23 EST Tel , Service support , N.B. : The above information has been verbally conveyed by Juan Foster MD to Dr. Ady Cisneros, Covering Physician, on 06/25/2017 14:01:13 (ET). Consultations 06/21/17 12:49 Consult: Onc/Wound/hog raiser Routine Comment: Large sacral decubitus wound Dr. Mendes, CCM Dr. Poon, Cardiology Drs. Meyers and Wilber of nephrology Procedures: 2-D Echocardiogram, - - Right IJ TLC Summary of Care Provided: The patient is a 72 year old M severe sepsis, infected back wound, atrial fibrillation with RVR, non-STEMI. Subsequently patient was found to have bacteremia of the same organism infecting his back and epidural abscess. Patient is to go to the [facility] for evaluation by instructional design specialist in regards to the epidural abscesses. 1. epidural abscess * noted on MRI * Plan is for the patient to go to the [facility] and be evaluated by neurosurgery or for definitive management. * Continue with antibiotics. Given the positive wound culture and bacteremia for the same organism patient is continue with Rocephin for the pasteurella. * Patient with severe pain that is not adequately relieved with the 2 mg of Dilaudid. Will increase the dose and frequency to 2-3 every 3 hours as needed from 2 mg every 4 hours as needed. * Likely the epidural abscess was present on admission the patient had no imaging to validate that. Patient's pain, however, did get worse clearly during the and the . * As mentioned previous documentation, patient did not want to go back to the [facility] who did the initial spine surgery and he and his are requesting [facility]. [facility] as I have been told has a bed and the patient will be transferred up there hopefully this morning but may not be into the afternoon. 2. Atrial fibrillation with RVR * Currently normal sinus rhythm * On amiodarone * Anticoagulated with Eliquis 3. Severe sepsis * Present on admission * Secondary to infected back wound, epidural abscess and bacteremia 4. Infected back wound * Positive Pasteurella * Rocephin * infectious disease following 5. Bacteremia * 1 of 2 sets positive for the pasteurella species * Continue with antibiotics * Repeat blood cultures on the are so far negative. 6. Right hip pain * xray was negative for any fracture showed a chronic endochondroma * Speck that this is radicular given the epidural abscesses. 7. Chronic kidney disease stage 3 * Stable. Monitor * Nephrology following 8. Non-STEMI * Clinically stable * May be a type II event given the patient's severe sepsis, atrial fibrillation with RVR and bacteremia * Follow-up with cardiology as outpatient 9. Cardiomyopathy * Ejection fraction of 20%, this is down from 60% from August 11, 2013. * On aspirin 9. DVT prophylaxis: Patient is on Eliquis [] Discharge Diet: Low fat/ Low Cholesterol Discharge Activity: - - Activity as directed by the medical billing service and therapist Call your doctor if you observe: Fever of 101 or Higher, Shortness of breath, - - Worsening back pain Home Medications: Medications to take at Discharge Ferrous Gluconate 240 mg PO BID 02/05/16 Folic Acid 1 mg PO QHS 02/05/16 Magnesium Oxide [Magnesium] 400 mg PO DAILY 02/05/16 Metoprolol Tartrate [Lopressor (beta yaquelin)] 12.5 mg PO BID 02/05/16 Apixaban [Eliquis] 2.5 mg PO BID 03/16/16 Cholecalciferol (Vitamin D3) [Vitamin D3] 1,000 unit PO QHS 10/14/16 Gabapentin [Neurontin] 100 mg PO BIDCM #60 capsule 10/25/16 Oxycodone [Oxyir] 30 mg PO PRN PRN 02/13/17 atorvastatin 20 mg tablet 20 mg PO QDAY #90 tab 05/16/17 Vit C/E/Zn/Coppr/Lutein/Zeaxan [Preservision Areds 2 Softgel] 2 each PO DAILY Primary Care Physician: Bernardo Lawson DO [Primary Care Provider] - Within 2 Weeks Please Follow Up With: Andi Avalos MD - Cardiology When: 2-4 weeks Disposition: Acute care Hospital Minutes spent on discharge:: 35 Patient Condition:: Stable Meaningful Use Info Meaningful Use Diagnoses (Choose all that apply): AMI - AMI Aspirin given w/in 24hrs of arrival?: Yes ASA at discharge?: Yes Statins at discharge?: Yes Thierry/ARB at discharge?: No Reason Thierry/ARB not ordered:: Worsening renal disease Beta Yaquelin at discharge?: Yes Done w/ Acute NM measure.: Yes Code Visit Inpatient E&M: 37590 Disch Hosp
--- NOTE | 2017-06-26 10:09 | PN.ID_ITS ---
Patient Problems: Active and Suspected Problems Epidural abscess (Acute) A-fib (Acute) Severe sepsis (Acute) wound sepsis of previous wound (Acute) Subjective: Pain much worse today, no fever. - Physical Exam General: Alert, - - in pain Lungs: Clear to auscultation, Normal air movement Cardiovascular: Regular rate, Regular Rhythm Abdomen: Soft, Non Tender, Non-Distended Skin: Ulcer/ Wound - reviewed photos Vital Signs Temp Pulse Resp BP Pulse Ox 98.8 F 91 14 133/64 H 95 06/26/17 08:31 06/26/17 08:31 06/26/17 08:31 06/26/17 08:31 06/26/17 08:31 Oxygen Flow Rate 2 Oxygen Delivery Method Room Air Weight: 80.3 kg Body Mass Index (BMI) 25.4 Intake and Output for Last 24 Hours 06/24/17 06/25/17 06/26/17 23:59 23:59 23:59 Intake Total 1810 / 1810 1142 / 1142 Output Total 900 / 900 910 / 910 250 / 250 Balance 910 / 910 232 / 232 -250 / -250 Microbiology Past 72 Hours 06/24/17 08:03 Blood Culture - Preliminary Blood Culture (Wb) - Port No growth in 48 hours. 06/24/17 08:10 Blood Culture - Preliminary Blood Culture (Wb) - Anticubital Left No growth in 48 hours. 06/21/17 14:30 Blood Culture - Final Blood Culture (Wb) - Other Pasteurella multocida 06/21/17 13:05 Urine Culture - Final Urine Catheter - Garcia Culture exhibits no growth. 06/21/17 13:33 Gram Stain - Final Wound - Other Wound Culture - Final Pasteurella multocida Laboratory Tests Past 24 Hrs 06/25/17 06/25/17 06/26/17 16:59 16:59 04:30 WBC 12.1 H RBC 3.26 L Hgb 10.4 L Hct 32.0 L MCV 98.2 H MCH 31.9 MCHC 32.5 RDW 15.4 H RDW Differential 55.3 H Plt Count 324 MPV 10.5 Immature Gran % (Auto) 0.400 Neut % (Auto) 84.7 H Lymph % (Auto) 6.0 L Carver % (Auto) 8.7 Eos % (Auto) 0.1 Baso % (Auto) 0.1 Absolute Neuts (auto) 10.3 H Absolute Lymphs (auto) 0.73 L Total Counted Not Reportable Nucleated RBC % 0.1 Absolute Retic 0.02 Sodium Potassium Chloride Carbon Dioxide Anion Gap BUN Creatinine Estim Creat Clear Calc Est GFR (MDRD) Af Amer Est GFR (MDRD) Non-Af BUN/Creatinine Ratio Glucose Calcium Ur Random Sodium 31 Urine Creatinine 63.10 06/26/17 04:30 WBC RBC Hgb Hct MCV MCH MCHC RDW RDW Differential Plt Count MPV Immature Gran % (Auto) Neut % (Auto) Lymph % (Auto) Carver % (Auto) Eos % (Auto) Baso % (Auto) Absolute Neuts (auto) Absolute Lymphs (auto) Total Counted Nucleated RBC % Absolute Retic Sodium 136 Potassium 3.6 Chloride 105 Carbon Dioxide 23.0 Anion Gap 8 BUN 64 H Creatinine 1.89 H Estim Creat Clear Calc 33.68 Est GFR (MDRD) Af Amer 45 L Est GFR (MDRD) Non-Af 37 L BUN/Creatinine Ratio 33.9 H Glucose 96 Calcium 8.1 L Ur Random Sodium Urine Creatinine Route of nutrition/ use of supplements: [] Nutritional Intake: [] IV Site: [] Garcia Catheter: [] - Assessment/Plan Antibiotics: [] Assessment/Plan: [] Active and Suspected Problems A-fib (Acute) Severe sepsis (Acute) wound sepsis of previous wound (Acute) Severe sepsis (elevated lactate, leukocytosis, tachycardia) due to pasteurella bacteremia from lumbar spine infected ulcer - Pain much worse today. MRI shows epidural abscess. Needs urgent surgical intervention. Transfer to [facility] planned. Repeat bcx from 06/24 neg so far. 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 CKD - stable D/w sample case porter, will follow.
[2017-06-26] MEDS: HYDROmorphone 1 MG/ML Syringe IV ×4 (10:56→18:30)
[2017-06-26] MEDS: Carvedilol 3.125 MG TABLET PO (10:56)
--- NOTE | 2017-06-26 18:10 | NURSING ---
report called to Jevon HARDY at [facility]
== END 2017-06-26 19:10 | disposition short-term general hospital (02) | DRG 862 ==
LOC: ED 10:52 → ICU 10:57 → PCU 06-23 17:30
PROVIDERS: Internal Medicine Critical Care Medicine; Internal Medicine Nephrology; Admitting Provider Internal Medicine; Emergency Provider Emergency Medicine; Family Provider Family Medicine; PCP Family Medicine
DX: T81.4XXA Infection following a procedure, initial encounter (principal); A41.59 Other Gram-negative sepsis; I21.A1 Myocardial infarction type 2; N17.0 Acute kidney failure with tubular necrosis; G06.2 Extradural and subdural abscess, unspecified; G93.41 Metabolic encephalopathy; A28.0 Pasteurellosis; I42.9 Cardiomyopathy, unspecified; N18.3 Chronic kidney disease, stage 3 (moderate); R65.20 Severe sepsis without septic shock; I50.42 Chronic combined systolic (congestive) and diastolic (congestive) heart failure; Z87.891 Personal history of nicotine dependence; E78.5 Hyperlipidemia, unspecified; Z85.72 Personal history of non-Hodgkin lymphomas; M25.551 Pain in right hip; G47.33 Obstructive sleep apnea (adult) (pediatric); Z79.01 Long term (current) use of anticoagulants; I48.0 Paroxysmal atrial fibrillation; D64.9 Anemia, unspecified; L98.429 Non-pressure chronic ulcer of back with unspecified severity; I11.0 Hypertensive heart disease with heart failure; Z92.3 Personal history of irradiation
CPT/HCPCS: 36415; 36600; 70450; 70490; 71045; 72148; 73502; 80048; 80053; 81002; 82570; 82803; 82962; 83036; 83605; 83735; 83880; 84300; 84484; 85025; 85027; 85610; 85730; 87040; 87070; 87077; 87086; 87186; 87205; 87633; 87640; 87641; 92507; 92526; 93005; 93306; 97110; 97116; 97163; 97166; 97802; 99285; J7030; J7040; J7050; J7120; Q9957; A4216; C1751; J0153; J1940

== ENCOUNTER 2017-07-04 22:52 | Inpatient (IN) | payer MEDICARE, OTHER, SELFPAY ==
[2015-10-31 10:00] VITALS: BMI 34.9
[2017-07-04 23:06] VITALS: BP 161/83; PULSE 94; RESP 20; TEMP 36.2; O2SAT 96; BMI 24.3
[2017-07-04 23:27] VITALS: PULSE 75; O2SAT 97
--- NOTE | 2017-07-05 00:35 | NURSING ---
Pt arrived via cot from [facility] at 22:45.
[2017-07-05] MEDS: HYDROmorphone 2 MG TABLET 4 MG PO ×2 (00:52→05:09)
[2017-07-05] MEDS: 0.9% NaCl PICC Flush 10 ML IV ×3 (01:09→21:44)
[2017-07-05] MEDS: 0.9% NaCl IVPB Med Flush (250 mL) 15 ML IV (01:10)
[2017-07-05] MEDS: Gabapentin 100 MG Capsule PO ×2 (01:14→08:20)
[2017-07-05] MEDS: Atorvastatin Calcium 20 MG Tablet PO ×2 (01:14→21:44)
[2017-07-05 05:09] VITALS: BP 158/74; PULSE 99
[2017-07-05] MEDS: Metoprolol(XL)Succ 25 MG Tablet 12.5 MG PO (05:09)
[2017-07-05 06:46] LABS: Absolute Lymphocyte Count 1.11 X10^3/ul (0.83-4.51); Absolute Neutrophil Count 6.2 X10^3/uL (2.0-7.7); Basophil% 1.1 % (0-1); Eosinophil# 0.07 X10^3/uL; Eosinophils% 0.8 % (0-5); Hematocrit 27.5 % (40-54); Hemoglobin 9.1 g/dl (13.0-16.5); Lymphocyte # 1.11 X10^3/ul (4.0); Lymphocyte % 12.5 % (19-41); Mean Corp Hgb Conc 33.1 g/gl (32-36); Mean Corpuscular Hgb 32.5 pg (27.0-32.0); Mean Corpuscular Volume 98.2 fL (80-94); Mean Platelet Vol. 9.7 fl (6.2-12.0); Monocyte# 1.42 X10^3/uL; Neutrophil # 6.15 X10^3/uL (2.7-7.7); Neutrophil % 69.5 % (47-70); Platelet Count 402 K/mm3 (150-450); RBC Distribution Width CV 14.9 % (11.6-14.6); RBC Distribution Width SD 51.1 fl (35.1-43.9); White Blood Count 8.9 K/mm3 (4.4-11.0)
[2017-07-05 07:05] LABS: Anion Gap 9 (5-15); BUN 43 mg/dL (7-18); BUN/Creat Ratio 20.4 RATIO (10-20); Calcium,Total 8.8 mg/dL (8.5-10.1); Chloride 101 mmol/L (98-107); Creatinine, Serum 2.11 mg/dL (0.70-1.30); EST Glomerular Filtration Rate 33 mL/min (>60); Est Glom Filt Rate - Afr Amer 40 mL/min (>60); Estimated Creatinine Clearance 30.17 ml/min; Glucose 93 mg/dL (74-106); Potassium 4.8 mmol/L (3.5-5.1); Sodium Level 133 mmol/L (136-145)
[2017-07-05 07:10] LABS: POSITIVE COUNT NO; POSITIVE DIFFERENTIAL NO; POSITIVE MORPHOLOGY NO
--- NOTE | 2017-07-05 07:48 | PCM.HP.STD ---
Problem List (1) PSVT (paroxysmal supraventricular tachycardia) Status: Acute (2) Stage 4 decubitus ulcer Status: Chronic (3) Acute on chronic systolic heart failure Status: Acute (4) Pulmonary embolism Status: Chronic (5) Delirium Status: Acute (6) Lymphedema Status: Chronic (7) Chronic kidney disease Status: Chronic (8) Non-Hodgkin lymphoma Status: Chronic (9) A-fib Status: Acute (10) Sepsis Status: Acute (11) Hyperlipidemia Status: Chronic (12) Hypertension Status: Chronic (13) Shortness of breath Status: Chronic (14) Peripheral vascular disease Status: Chronic (15) Generalized weakness Status: Chronic History of Present Illness Date of Admission: 07/04/17 Chief Complaint: Here for rehabilitation, strengthening, wound care, prior to disposition determination. The patient is a 72 year old Male with below past medical history presented to [facility] Emergency Department 06/21/2017 not doing well. 06/21/2017 CT brain chronic involutional changes of brain, old right thalamic infarct, acute left ethmoid sinus disease. 06/21/2017 EKG sinus tachycardia with premature atrial contractions, right bundle branch block, left anterior fascicular block, bifascicular block, left ventricular hypertrophy with repolarization abnormality. Delirium, bad headache, facial droop. infranodal tachycardia, Adenosine 6MG, then 12MG given. Chest X-ray showed borderline cardiomegaly, congestive heart failure. Troponin 0.26, Lactate 3.0, WBC 15.8. Hemoglobin 12.9, Hematocrit 38.6, Glucose 143, BUN 67, Cr 2.16. Patient cardioverted successfully. IV Lasix given, Cardizem drip started. 06/21/2017 Admit to ICU Zosyn IV, Vanco IV, IV fluids, for sepsis. Eliquis, Cardizem, Metoprolol for dysrhythmia. 06/21/2017 Chest X-ray mild cardiomegaly, pulmonary congestion, right central line. 06/21/2017 Abbey Pina placed right IJ line. 06/21/2017 Echo Severe segmental systolic dysfunction. EF 20%. Right ventricular systolic pressure 41mm HG. 06/21/2017 Dr. Mendes severe sepsis secondary to lumbosacral wound. Atrial fibrillation with RVR. NSTEMI. 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 06/26/2017 Transfer to [facility] for definitive management of epidural abscess per neurosurgery. Dilaudid for severe pain. Atrial fibrillation with RVR treated with amiodarone, Eliquis. Severe sepsis treated with antibiotics, cultures growing pasturella. NSTEMI due to demand ischemia. At [facility], dressing changes done to wound. L5, S1 fluid collection extending to right nerve root, no surgical decompression. 07/04/2017 Admit to TCU for rehabilitation, strengthening, wound care, intravenous antibiotics, disposition determination. 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) nonhealing ulcer lumbar back area Open wound of lower back (Chronic) with muscle and bone exposed s/p surgical debridement of abscess s/p lumbar spine surgery Chronic ulcer of right leg with fat layer exposed (Chronic) Lumbar disc disease (Chronic) Edema of both legs (Chronic) Leg swelling (Chronic) History of diverticulitis (Chronic) Hyperlipidemia (Chronic) Back pain at L4-L5 level (Chronic) History of non-Hodgkin's lymphoma (Chronic) Hypertension (Chronic) Shortness of breath (Chronic) Hypoxia (Chronic) History of atrial fibrillation (Chronic) Surgical wound dehiscence (Chronic) Renal insufficiency (Chronic) Soft tissue radionecrosis (Chronic) Ulcer of left heel and midfoot with fat layer exposed (Chronic) Decubitus ulcer, heel, right, unstageable (Chronic) Peripheral vascular disease (Chronic) Edema, lower extremity (Chronic) Malnutrition (Chronic) Pressure ulcer, back, lower (Chronic) Ulcer of right foot with fat layer exposed (Chronic) Decubitus ulcer of right foot, unstageable (Chronic) Peripheral vascular disease (Chronic) Ulcer of right lower extremity with fat layer exposed (Chronic) Tinea unguium (Chronic) Generalized weakness (Chronic) Allergies chlorthalidone Allergy (Verified 07/04/17 23:00) Unknown ramipril [From Altace] Allergy (Verified 07/04/17 23:00) Unknown sulfamethoxazole [From Bactrim] Allergy (Verified 06/21/17 08:58) Other trazodone Allergy (Verified 07/04/17 23:00) Unknown trimethoprim [From Bactrim] Allergy (Verified 06/21/17 08:58) Other prednisone Adverse Reaction (Verified 06/21/17 08:58) Swelling Home Medications: Ambulatory Orders Medication Instructions Recorded Ferrous Gluconate 240 mg PO BID 02/05/16 Folic Acid 1 mg PO DAILY@0800 02/05/16 Magnesium Oxide [Magnesium] 400 mg PO DAILY@0800 02/05/16 Apixaban [Eliquis] 2.5 mg PO BID 03/16/16 Cholecalciferol (Vitamin D3) 1,000 unit PO DAILY@0800 10/14/16 [Vitamin D3] Acetaminophen [Tylenol] 650 mg PO Q6H PRN PRN 07/04/17 Aspirin 81 mg PO DAILY@0800 07/04/17 Atorvastatin Calcium [Lipitor] 20 mg PO QHS 07/04/17 Budesonide/Formoterol 160/4.5 2 puff INHALATION BID 07/04/17 [Symbicort 160/4.5 Mcg Inhaler (SP)] Calcium Alginate/Honey [Medihoney 1 each TP DAILY 07/04/17 3/4X12 Dressing] Cyanocobalamin [Vitamin B12] 1,000 mcg PO DAILY@0800 07/04/17 Gabapentin [Neurontin] 100 mg PO TIDCM 07/04/17 HydromorphONE [Dilaudid] 4 mg PO Q4H PRN PRN 07/04/17 Metoprolol Succinate [Toprol Xl] 12.5 mg PO DAILY 07/04/17 Piperacil/Tazobactam [Zosyn] 4.5 gm IV Q8 07/04/17 Sodium Hypochlorite [Dakins 1 applic TOPICAL DAILY 07/04/17 Solution 0.25% (1/2 Strength)] Vancomycin HCl in Dextrose 5 % 1.5 gm IV Q48H 07/04/17 [Vancomycin 1.5 Gram/250 ml-D5w] Vit C/E/Zn/Coppr/Lutein/Zeaxan 2 each PO QHS 07/04/17 [Preservision Areds 2 Softgel] Zinc Sulfate (50mg elemental) 220 mg PO DAILY 07/04/17 [Zinc Sulfate] Surgical History: colectomy - Partial., - - Splenectomy, Ileostomy reversal, L4-5 discectomy. Wound debridement 03/04/2017, 05/14/2017 at [facility]> Psychiatric History: No pertinent psych hx Lives: Spouse/ Significant Other Smoking Status: Former smoker Tobacco Use: Non-smoker Alcohol: None Drugs: None - *Family History Maternal History Items: Heart Disease Paternal History Items: Diabetes Review of Systems Constitutional: Denies: Chills, Fever, Weight Change HEENT: Denies: Head Aches, Sinus Congestion, Sinus Drainage Cardiovascular: Denies: Chest Pain, Palpitations Respiratory: Denies: Cough, Shortness of breath at rest, Sputum production Gastrointestinal: Denies: Abdominal Pain, Nausea, Vomiting Genitourinary: Denies: Dysuria Musculoskeletal: Denies: Joint Pain, Joint Tenderness Skin: Denies: Rash, Wounds Neurological: Reports: Numbness - Right hip., Tingling - Right hip.. Denies: Focal weakness Psychiatric: Denies: Anxiety, Depression, Homicidal Ideations, Suicidal Ideations Hematologic/ Lymphatic: Denies: Easy Bruising, Easy Bleeding VTE Information - Inpt Only VTE Present on Admission: No VTE Mechan Device Prophylaxis: Knee High KELLY Hose VTE Pharm Prophylaxis ordered?: No Reason prophylaxis not ordered:: Treatment Not Indicated Patient Problems: Active and Suspected Problems PSVT (paroxysmal supraventricular tachycardia) (Acute) Acute on chronic systolic heart failure (Acute) Delirium (Acute) - Physical Exam General: Alert, Oriented x3, Cooperative HEENT: Atraumatic, PERRLA, EOMI, Normocephalic Neck: Supple, No JVD, Negative Carotid Bruits Lungs: Clear to auscultation, Normal air movement Cardiovascular: Regular rate, No murmurs Abdomen: Bowel Sounds Present, Soft, Non Tender Extremities: No edema, Capillary Refill Less than 3 Seconds Skin: Ulcer/ Wound - Stage 4 lumbar wound. Musculoskeletal: No Tenderness to Palpation of Joints or Extremities Neurological: Cranial nerves II-XII grossly intact Psych/Mental Status: Normal Affect, Appropriate Vital Signs Temp Pulse Resp BP Pulse Ox 97.1 F L 99 20 H 158/74 H 97 07/04/17 23:06 07/05/17 05:09 07/04/17 23:06 07/05/17 05:09 07/04/17 23:27 Oxygen Delivery Method Room Air Weight: 72.575 kg Body Mass Index (BMI) 24.3 Laboratory Tests Past 24 Hrs 07/05/17 07/05/17 06:30 06:30 WBC 8.9 RBC 2.80 L Hgb 9.1 L Hct 27.5 L MCV 98.2 H MCH 32.5 H MCHC 33.1 RDW 14.9 H RDW Differential 51.1 H Plt Count 402 MPV 9.7 Immature Gran % (Auto) 0.100 Neut % (Auto) 69.5 Lymph % (Auto) 12.5 L [place] % (Auto) 16.0 H Eos % (Auto) 0.8 Baso % (Auto) 1.1 H Absolute Neuts (auto) 6.2 Absolute Lymphs (auto) 1.11 Total Counted Not Reportable Sodium 133 L Potassium 4.8 Chloride 101 Carbon Dioxide 23.0 Anion Gap 9 BUN 43 H Creatinine 2.11 H Estim Creat Clear Calc 30.17 Est GFR (MDRD) Af Amer 40 L Est GFR (MDRD) Non-Af 33 L BUN/Creatinine Ratio 20.4 H Glucose 93 Calcium 8.8 Assessment/Plan Active and Suspected Problems PSVT (paroxysmal supraventricular tachycardia) (Acute) Acute on chronic systolic heart failure (Acute) Delirium (Acute) 72 year old male with below past medical history hospitalized for sepsis, secondary to back wound, epidural abscess, complicated by PSVT requiring successful cardioversion, NSTEMI secondary to demand ischemia, transferred to [facility] for wound care, admitted to TCU for rehabilitation, strengthening, wound care, intravenous antibiotics, prior to disposition determination. Debility - PT/OT. Pain - Tylenol 1000MG Q8H PRN mild pain, Dilaudid 8MG Q2H PRN severe pain. Bowel - Miralax 17GM daily, Senna/colace 2 tablets BID, Dulcolax 10MG DC daily PRN. Pneumonia vaccination - Administer Prevnar 13 and/or Pneumovax 23 as necessary. DVT prophylaxis - Not necessary, Eliquis 2.5MG twice daily. CV prophylaxis - Aspirin 81MG daily. Atrial fibrillation - Metoprolol succinate 12.5MG daily, Eliquis 2.5MG BID. Hyperlipidemia - Atorvastatin 20MG QHS. Vitamin D deficiency - D3 1000IU daily, Vitamin B12 deficiency - B12 1000MCG daily. Nutrition - Ensure 120ML 4x/day, MVI daily. Iron deficiency anemia - Ferrous gluconate 325MG BID. COPD - Advair 250/50 1 puff BID. Folate deficiency - Folic Acid 1MG daily. Neuropathic pain - Increase Gabapentin to 300MG TID. Hypomagnesemia - Mag Oxide 400MG daily. Lumbar wound infection - Zosyn 3.375GM IV Q8H, Vancomycin 1.5GM IV Q8H. Wound - Dakins solution daily, consider wound vac, Tatyana Sullivan following. Zinc deficiency - Zinc 200MG daily.
--- NOTE | 2017-07-05 08:02 | HP.PCM_ITS ---
Problem List (1) PSVT (paroxysmal supraventricular tachycardia) Status: Acute (2) Stage 4 decubitus ulcer Status: Chronic (3) Acute on chronic systolic heart failure Status: Acute (4) Pulmonary embolism Status: Chronic (5) Delirium Status: Acute (6) Lymphedema Status: Chronic (7) Chronic kidney disease Status: Chronic (8) Non-Hodgkin lymphoma Status: Chronic (9) A-fib Status: Acute (10) Sepsis Status: Acute (11) Hyperlipidemia Status: Chronic (12) Hypertension Status: Chronic (13) Shortness of breath Status: Chronic (14) Peripheral vascular disease Status: Chronic (15) Generalized weakness Status: Chronic History of Present Illness Date of Admission: 07/04/17 Chief Complaint: Here for rehabilitation, strengthening, wound care, prior to disposition determination. The patient is a 72 year old Male with below past medical history presented to [facility] Emergency Department 06/21/2017 not doing well. 06/21/2017 CT brain chronic involutional changes of brain, old right thalamic infarct, acute left ethmoid sinus disease. 06/21/2017 EKG sinus tachycardia with premature atrial contractions, right bundle branch block, left anterior fascicular block, bifascicular block, left ventricular hypertrophy with repolarization abnormality. Delirium, bad headache, facial droop. infranodal tachycardia, Adenosine 6MG, then 12MG given. Chest X-ray showed borderline cardiomegaly, congestive heart failure. Troponin 0.26, Lactate 3.0, WBC 15.8. Hemoglobin 12.9, Hematocrit 38.6, Glucose 143, BUN 67, Cr 2.16. Patient cardioverted successfully. IV Lasix given, Cardizem drip started. 06/21/2017 Admit to ICU Zosyn IV, Vanco IV, IV fluids, for sepsis. Eliquis, Cardizem, Metoprolol for dysrhythmia. 06/21/2017 Chest X-ray mild cardiomegaly, pulmonary congestion, right central line. 06/21/2017 Abbey Pina placed right IJ line. 06/21/2017 Echo Severe segmental systolic dysfunction. EF 20%. Right ventricular systolic pressure 41mm HG. 06/21/2017 Dr. Mendes severe sepsis secondary to lumbosacral wound. Atrial fibrillation with RVR. NSTEMI. 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 06/26/2017 Transfer to [facility] for definitive management of epidural abscess per neurosurgery. Dilaudid for severe pain. Atrial fibrillation with RVR treated with amiodarone, Eliquis. Severe sepsis treated with antibiotics, cultures growing pasturella. NSTEMI due to demand ischemia. At [facility], dressing changes done to wound. L5, S1 fluid collection extending to right nerve root, no surgical decompression. 07/04/2017 Admit to TCU for rehabilitation, strengthening, wound care, intravenous antibiotics, disposition determination. 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) nonhealing ulcer lumbar back area Open wound of lower back (Chronic) with muscle and bone exposed s/p surgical debridement of abscess s/p lumbar spine surgery Chronic ulcer of right leg with fat layer exposed (Chronic) Lumbar disc disease (Chronic) Edema of both legs (Chronic) Leg swelling (Chronic) History of diverticulitis (Chronic) Hyperlipidemia (Chronic) Back pain at L4-L5 level (Chronic) History of non-Hodgkin's lymphoma (Chronic) Hypertension (Chronic) Shortness of breath (Chronic) Hypoxia (Chronic) History of atrial fibrillation (Chronic) Surgical wound dehiscence (Chronic) Renal insufficiency (Chronic) Soft tissue radionecrosis (Chronic) Ulcer of left heel and midfoot with fat layer exposed (Chronic) Decubitus ulcer, heel, right, unstageable (Chronic) Peripheral vascular disease (Chronic) Edema, lower extremity (Chronic) Malnutrition (Chronic) Pressure ulcer, back, lower (Chronic) Ulcer of right foot with fat layer exposed (Chronic) Decubitus ulcer of right foot, unstageable (Chronic) Peripheral vascular disease (Chronic) Ulcer of right lower extremity with fat layer exposed (Chronic) Tinea unguium (Chronic) Generalized weakness (Chronic) Allergies chlorthalidone Allergy (Verified 07/04/17 23:00) Unknown ramipril [From Altace] Allergy (Verified 07/04/17 23:00) Unknown sulfamethoxazole [From Bactrim] Allergy (Verified 06/21/17 08:58) Other trazodone Allergy (Verified 07/04/17 23:00) Unknown trimethoprim [From Bactrim] Allergy (Verified 06/21/17 08:58) Other prednisone Adverse Reaction (Verified 06/21/17 08:58) Swelling Home Medications: Ambulatory Orders Medication Instructions Recorded Ferrous Gluconate 240 mg PO BID 02/05/16 Folic Acid 1 mg PO DAILY@0800 02/05/16 Magnesium Oxide [Magnesium] 400 mg PO DAILY@0800 02/05/16 Apixaban [Eliquis] 2.5 mg PO BID 03/16/16 Cholecalciferol (Vitamin D3) 1,000 unit PO DAILY@0800 10/14/16 [Vitamin D3] Acetaminophen [Tylenol] 650 mg PO Q6H PRN PRN 07/04/17 Aspirin 81 mg PO DAILY@0800 07/04/17 Atorvastatin Calcium [Lipitor] 20 mg PO QHS 07/04/17 Budesonide/Formoterol 160/4.5 2 puff INHALATION BID 07/04/17 [Symbicort 160/4.5 Mcg Inhaler (SP)] Calcium Alginate/Honey [Medihoney 1 each TP DAILY 07/04/17 3/4X12 Dressing] Cyanocobalamin [Vitamin B12] 1,000 mcg PO DAILY@0800 07/04/17 Gabapentin [Neurontin] 100 mg PO TIDCM 07/04/17 HydromorphONE [Dilaudid] 4 mg PO Q4H PRN PRN 07/04/17 Metoprolol Succinate [Toprol Xl] 12.5 mg PO DAILY 07/04/17 Piperacil/Tazobactam [Zosyn] 4.5 gm IV Q8 07/04/17 Sodium Hypochlorite [Dakins 1 applic TOPICAL DAILY 07/04/17 Solution 0.25% (1/2 Strength)] Vancomycin HCl in Dextrose 5 % 1.5 gm IV Q48H 07/04/17 [Vancomycin 1.5 Gram/250 ml-D5w] Vit C/E/Zn/Coppr/Lutein/Zeaxan 2 each PO QHS 07/04/17 [Preservision Areds 2 Softgel] Zinc Sulfate (50mg elemental) 220 mg PO DAILY 07/04/17 [Zinc Sulfate] Surgical History: colectomy - Partial., - - Splenectomy, Ileostomy reversal, L4- 5 discectomy. Wound debridement 03/04/2017, 05/14/2017 at [facility]> Psychiatric History: No pertinent psych hx Lives: Spouse/ Significant Other Smoking Status: Former smoker Tobacco Use: Non-smoker Alcohol: None Drugs: None - *Family History Maternal History Items: Heart Disease Paternal History Items: Diabetes Review of Systems Constitutional: Denies: Chills, Fever, Weight Change HEENT: Denies: Head Aches, Sinus Congestion, Sinus Drainage Cardiovascular: Denies: Chest Pain, Palpitations Respiratory: Denies: Cough, Shortness of breath at rest, Sputum production Gastrointestinal: Denies: Abdominal Pain, Nausea, Vomiting Genitourinary: Denies: Dysuria Musculoskeletal: Denies: Joint Pain, Joint Tenderness Skin: Denies: Rash, Wounds Neurological: Reports: Numbness - Right hip., Tingling - Right hip.. Denies: Focal weakness Psychiatric: Denies: Anxiety, Depression, Homicidal Ideations, Suicidal Ideations Hematologic/ Lymphatic: Denies: Easy Bruising, Easy Bleeding VTE Information - Inpt Only VTE Present on Admission: No VTE Mechan Device Prophylaxis: Knee High KELLY Hose VTE Pharm Prophylaxis ordered?: No Reason prophylaxis not ordered:: Treatment Not Indicated Patient Problems: Active and Suspected Problems PSVT (paroxysmal supraventricular tachycardia) (Acute) Acute on chronic systolic heart failure (Acute) Delirium (Acute) - Physical Exam General: Alert, Oriented x3, Cooperative HEENT: Atraumatic, PERRLA, EOMI, Normocephalic Neck: Supple, No JVD, Negative Carotid Bruits Lungs: Clear to auscultation, Normal air movement Cardiovascular: Regular rate, No murmurs Abdomen: Bowel Sounds Present, Soft, Non Tender Extremities: No edema, Capillary Refill Less than 3 Seconds Skin: Ulcer/ Wound - Stage 4 lumbar wound. Musculoskeletal: No Tenderness to Palpation of Joints or Extremities Neurological: Cranial nerves II-XII grossly intact Psych/Mental Status: Normal Affect, Appropriate Vital Signs Temp Pulse Resp BP Pulse Ox 97.1 F L 99 20 H 158/74 H 97 07/04/17 23:06 07/05/17 05:09 07/04/17 23:06 07/05/17 05:09 07/04/17 23:27 Oxygen Delivery Method Room Air Weight: 72.575 kg Body Mass Index (BMI) 24.3 Laboratory Tests Past 24 Hrs 07/05/17 07/05/17 06:30 06:30 WBC 8.9 RBC 2.80 L Hgb 9.1 L Hct 27.5 L MCV 98.2 H MCH 32.5 H MCHC 33.1 RDW 14.9 H RDW Differential 51.1 H Plt Count 402 MPV 9.7 Immature Gran % (Auto) 0.100 Neut % (Auto) 69.5 Lymph % (Auto) 12.5 L Wilson % (Auto) 16.0 H Eos % (Auto) 0.8 Baso % (Auto) 1.1 H Absolute Neuts (auto) 6.2 Absolute Lymphs (auto) 1.11 Total Counted Not Reportable Sodium 133 L Potassium 4.8 Chloride 101 Carbon Dioxide 23.0 Anion Gap 9 BUN 43 H Creatinine 2.11 H Estim Creat Clear Calc 30.17 Est GFR (MDRD) Af Amer 40 L Est GFR (MDRD) Non-Af 33 L BUN/Creatinine Ratio 20.4 H Glucose 93 Calcium 8.8 Assessment/Plan Active and Suspected Problems PSVT (paroxysmal supraventricular tachycardia) (Acute) Acute on chronic systolic heart failure (Acute) Delirium (Acute) 72 year old male with below past medical history hospitalized for sepsis, secondary to back wound, epidural abscess, complicated by PSVT requiring successful cardioversion, NSTEMI secondary to demand ischemia, transferred to [facility] for wound care, admitted to TCU for rehabilitation, strengthening, wound care, intravenous antibiotics, prior to disposition determination. * Debility - PT/OT. * Pain - Tylenol 1000MG Q8H PRN mild pain, Dilaudid 8MG Q2H PRN severe pain. * Bowel - Miralax 17GM daily, Senna/colace 2 tablets BID, Dulcolax 10MG CT daily PRN. * Pneumonia vaccination - Administer Prevnar 13 and/or Pneumovax 23 as necessary. * DVT prophylaxis - Not necessary, Eliquis 2.5MG twice daily. * CV prophylaxis - Aspirin 81MG daily. * Atrial fibrillation - Metoprolol succinate 12.5MG daily, Eliquis 2.5MG BID. * Hyperlipidemia - Atorvastatin 20MG QHS. * Vitamin D deficiency - D3 1000IU daily, * Vitamin B12 deficiency - B12 1000MCG daily. * Nutrition - Ensure 120ML 4x/day, MVI daily. * Iron deficiency anemia - Ferrous gluconate 325MG BID. * COPD - Advair 250/50 1 puff BID. * Folate deficiency - Folic Acid 1MG daily. * Neuropathic pain - Increase Gabapentin to 300MG TID. * Hypomagnesemia - Mag Oxide 400MG daily. * Lumbar wound infection - Zosyn 3.375GM IV Q8H, Vancomycin 1.5GM IV Q8H. * Wound - Dakins solution daily, consider wound vac, Tatyana Sullivan following. * Zinc deficiency - Zinc 200MG daily.
[2017-07-05] MEDS: APIXABAN 2.5 MG TABLET PO ×2 (08:19→17:50)
[2017-07-05] MEDS: Ferrous Gluconate 325 MG Tablet PO ×2 (08:20→17:50)
[2017-07-05] MEDS: Folic Acid 1 MG Tablet PO (08:20)
[2017-07-05] MEDS: Aspirin 81 MG TAB.CHEW PO (08:20)
[2017-07-05] MEDS: Magnesium Oxide 400 MG Tablet PO (08:21)
[2017-07-05] MEDS: Multivitamins,Ther W-Minerals Tablet 1 TABLET PO (08:21)
[2017-07-05] MEDS: Cyanocobalamin 500 MCG Tablet 1000 MCG PO (08:21)
[2017-07-05] MEDS: HYDROmorphone 2 MG TABLET 8 MG PO ×4 (09:37→21:57)
--- NOTE | 2017-07-05 10:43 | NURSING ---
wound photo: mid lower back
[2017-07-05] MEDS: Gabapentin 100 MG Capsule 300 MG PO ×2 (11:52→17:50)
[2017-07-05] MEDS: Tuberculin,Purif.prot.deriv. 50 TU/ML Vial 5 ML ID (11:57)
--- NOTE | 2017-07-05 12:19 | NURSING ---
notified YIFAN Andrews of pt picc line in [place] with bleeding noted under drsg, pt reported that [facility] changed drsg 3x's yesterday before admission because of it bleeding, will cont to monitor. will be up to assess area.
--- NOTE | 2017-07-05 13:29 | NURSING ---
Called Irene Warner NP infectious disease at [facility], faxing orders now but stated that they don't have antibiotic discontinuation until follow up appt on july 31.
[2017-07-05 16:00] VITALS: BP 104/59; PULSE 72; RESP 16; TEMP 37; O2SAT 97
[2017-07-05] MEDS: Senna/Docusate Sodium 1 Tablet 2 TABLET PO (17:50)
[2017-07-05 17:54] LABS: Bacteria 0 SEEN /hpf (None Seen); Mucous, Urine 0 SEEN /hpf (<or=2+)
[2017-07-05 17:57] LABS: Color, Urine Yellow (Yellow); Glucose, Dipstick Normal (Normal); Ketone-Dipstick Negative (Negative); Leukocyte Esterase-Dipstick 25 /ul (Negative); Nitrite-Dipstick Negative (Negative); Occult Blood-Urine 250 /ul (Negative); Protein-Dipstick 30 mg/dl (Negative); Specific Gravity, Urine 1.015 (1.002-1.030); Urine Bilirubin Dipstick Negative (Negative); Urine Clarity Clear (Clear); Urine Urobilinogen Normal (Normal)
[2017-07-05 18:11] LABS: Red Blood Cells-Urine 25-50 SEEN /hpf (0-5)
[2017-07-05 18:12] LABS: Squamous Epithelial Cells - UA 0-5 SEEN /hpf (0-5); White Blood Cells 0-5 SEEN /hpf (0-5); Yeast-Urine RARE /hpf (None Seen)
[2017-07-05 19:09] LABS: Vancomycin, Random Level 26.2 ug/mL (0.0-15.0)
[2017-07-06] MEDS: HYDROmorphone 2 MG TABLET 8 MG PO ×5 (02:09→20:25)
--- NOTE | 2017-07-06 02:15 | NURSING ---
pt awake. dressing to back changed. dilaudid given for pain
[2017-07-06 05:59] VITALS: BP 121/78; PULSE 74
[2017-07-06] MEDS: APIXABAN 2.5 MG TABLET PO ×2 (05:59→17:44)
[2017-07-06] MEDS: Metoprolol(XL)Succ 25 MG Tablet 12.5 MG PO (05:59)
[2017-07-06] MEDS: Ferrous Gluconate 325 MG Tablet PO ×2 (09:04→17:44)
[2017-07-06] MEDS: Magnesium Oxide 400 MG Tablet PO (09:04)
[2017-07-06] MEDS: Cyanocobalamin 500 MCG Tablet 1000 MCG PO (09:04)
[2017-07-06] MEDS: Gabapentin 100 MG Capsule 300 MG PO ×3 (09:04→17:44)
[2017-07-06] MEDS: Multivitamins,Ther W-Minerals Tablet 1 TABLET PO (09:05)
[2017-07-06] MEDS: Aspirin 81 MG TAB.CHEW PO (09:05)
[2017-07-06] MEDS: Folic Acid 1 MG Tablet PO (09:05)
--- NOTE | 2017-07-06 14:03 | NURSING ---
Pt remains in contact precautions this shift d/t MRSA in wound, all nursing care and therapy completed in room
[2017-07-06] MEDS: 0.9% NaCl PICC Flush 10 ML IV ×2 (14:27→22:08)
[2017-07-06 15:48] VITALS: BP 135/74; PULSE 74; RESP 18; TEMP 36.7; O2SAT 98
[2017-07-06 18:57] LABS: Vancomycin, Random Level 23.5 ug/mL (0.0-15.0)
[2017-07-06] MEDS: Atorvastatin Calcium 20 MG Tablet PO (20:26)
[2017-07-06 20:30] VITALS: PULSE 71; O2SAT 95
[2017-07-07] MEDS: HYDROmorphone 2 MG TABLET 8 MG PO ×7 (01:29→23:42)
[2017-07-07 05:41] VITALS: BP 109/54; PULSE 71
[2017-07-07] MEDS: APIXABAN 2.5 MG TABLET PO ×2 (05:41→16:30)
[2017-07-07] MEDS: Metoprolol(XL)Succ 25 MG Tablet 12.5 MG PO (05:41)
[2017-07-07] MEDS: Folic Acid 1 MG Tablet PO (08:54)
[2017-07-07] MEDS: Aspirin 81 MG TAB.CHEW PO (08:54)
[2017-07-07] MEDS: Cyanocobalamin 500 MCG Tablet 1000 MCG PO (08:54)
[2017-07-07] MEDS: Multivitamins,Ther W-Minerals Tablet 1 TABLET PO (08:54)
[2017-07-07] MEDS: Ferrous Gluconate 325 MG Tablet PO ×2 (08:54→16:30)
[2017-07-07] MEDS: Gabapentin 100 MG Capsule 300 MG PO ×3 (08:54→16:30)
[2017-07-07] MEDS: Magnesium Oxide 400 MG Tablet PO (08:54)
--- NOTE | 2017-07-07 14:39 | NURSING ---
Pt requesting a probiotic, Dr. Olmedo updated and N.O. received, pt updated.
[2017-07-07 15:57] VITALS: BP 114/60; PULSE 76; RESP 18; TEMP 36.8; O2SAT 99
[2017-07-07] MEDS: 0.9% NaCl PICC Flush 10 ML IV (21:30)
[2017-07-07] MEDS: Atorvastatin Calcium 20 MG Tablet PO (21:30)
--- NOTE | 2017-07-07 22:05 | NURSING ---
Pt remains in contact isolation this shift d/t MRSA in wound. All care provided in room.
[2017-07-08] MEDS: HYDROmorphone 2 MG TABLET 8 MG PO ×5 (03:32→22:42)
[2017-07-08 06:14] VITALS: BP 121/64; PULSE 85
[2017-07-08] MEDS: APIXABAN 2.5 MG TABLET PO ×2 (06:14→17:34)
[2017-07-08] MEDS: Metoprolol(XL)Succ 25 MG Tablet 12.5 MG PO (06:14)
[2017-07-08] MEDS: 0.9% NaCl PICC Flush 10 ML IV ×2 (06:18→20:59)
[2017-07-08] MEDS: 0.9% NaCl IVPB Med Flush (250 mL) 15 ML IV (06:18)
[2017-07-08] MEDS: Aspirin 81 MG TAB.CHEW PO (08:03)
[2017-07-08] MEDS: Multivitamins,Ther W-Minerals Tablet 1 TABLET PO (08:03)
[2017-07-08] MEDS: Ferrous Gluconate 325 MG Tablet PO ×2 (08:03→17:33)
[2017-07-08] MEDS: Magnesium Oxide 400 MG Tablet PO (08:03)
[2017-07-08] MEDS: Gabapentin 100 MG Capsule 300 MG PO ×3 (08:03→17:33)
[2017-07-08] MEDS: Cyanocobalamin 500 MCG Tablet 1000 MCG PO (08:03)
[2017-07-08] MEDS: Folic Acid 1 MG Tablet PO (08:06)
--- NOTE | 2017-07-08 10:03 | NURSING ---
wound photo: mid lower back
[2017-07-08 12:44] LABS: Absolute Lymphocyte Count 1.41 X10^3/ul (0.83-4.51); Absolute Neutrophil Count 3.8 X10^3/uL (2.0-7.7); Basophil# 0.14 X10^3/uL; Basophil% 2.2 % (0-1); Eosinophil# 0.28 X10^3/uL; Eosinophils% 4.4 % (0-5); Hematocrit 24.5 % (40-54); Hemoglobin 7.8 g/dl (13.0-16.5); Lymphocyte # 1.41 X10^3/ul (4.0); Lymphocyte % 22.1 % (19-41); Mean Corp Hgb Conc 31.8 g/gl (32-36); Mean Corpuscular Hgb 31.2 pg (27.0-32.0); Mean Platelet Vol. 9.4 fl (6.2-12.0); Monocyte# 0.79 X10^3/uL; Monocyte% 12.4 % (0-10); Neutrophil # 3.76 X10^3/uL (2.7-7.7); Neutrophil % 58.7 % (47-70); Platelet Count 387 K/mm3 (150-450); RBC Distribution Width CV 15.4 % (11.6-14.6); RBC Distribution Width SD 55.2 fl (35.1-43.9); White Blood Count 6.4 K/mm3 (4.4-11.0)
[2017-07-08 12:45] LABS: POSITIVE COUNT NO; POSITIVE DIFFERENTIAL NO; POSITIVE MORPHOLOGY NO
[2017-07-08 12:46] LABS: Erythrocyte Sedimentation Rate 81 mm/hr (0-20)
[2017-07-08 12:55] LABS: Anion Gap 11 (5-15); BUN 50 mg/dL (7-18); BUN/Creat Ratio 22.6 RATIO (10-20); Calcium,Total 8.9 mg/dL (8.5-10.1); Chloride 100 mmol/L (98-107); Creatinine, Serum 2.21 mg/dL (0.70-1.30); EST Glomerular Filtration Rate 31 mL/min (>60); Est Glom Filt Rate - Afr Amer 38 mL/min (>60); Glucose 77 mg/dL (74-106); Potassium 4.4 mmol/L (3.5-5.1); Sodium Level 134 mmol/L (136-145)
[2017-07-08 12:56] LABS: Vancomycin, Random Level 17.1 ug/mL (0.0-15.0)
[2017-07-08 13:01] LABS: AST(SGOT) 46 U/L (15-37); Alanine Aminotransfer ALT/SGPT 35 U/L (16-61); Albumin, Serum 1.9 g/dL (3.2-5.0); Alkaline Phosphatase 206 U/L (45-117); Bilirubin, Direct 0.17 mg/dL (0.00-0.30); Globulin 5.9 g/dL (2.2-4.2); Protein, Total 7.8 g/dL (6.4-8.2)
--- NOTE | 2017-07-08 13:14 | PHA.PHARE_ITS ---
<Emily Van M - Last Filed: 07/08/17 13:15> Subjective/Objective Date: 07/08/17 Time: 13:14 Antibiotic: Vancomycin Type of Consult: New start Indications for Therapy: STAGE IV BACK ULCERATION Labs: Sodium 134 mmol/L (136-145) L 07/08/17 12:10 Potassium 4.4 mmol/L (3.5-5.1) 07/08/17 12:10 Chloride 100 mmol/L (98-107) 07/08/17 12:10 Carbon Dioxide 23.0 mmol/L (21.0-32.0) 07/08/17 12:10 Anion Gap 11 (5-15) 07/08/17 12:10 BUN 50 mg/dL (7-18) H 07/08/17 12:10 Creatinine 2.21 mg/dL (0.70-1.30) H 07/08/17 12:10 Est GFR (MDRD) Af Amer 38 mL/min (>60) L 07/08/17 12:10 Est GFR (MDRD) Non-Af 31 mL/min (>60) L 07/08/17 12:10 BUN/Creatinine Ratio 22.6 RATIO (10-20) H 07/08/17 12:10 Glucose 77 mg/dL (74-106) 07/08/17 12:10 Random Vancomycin 17.1 ug/mL (0.0-15.0) H 07/08/17 12:10 Estimated Creatinine Clearance: 23ML/MIN Pharmacy Plan for Drug Dosing: Pharmacy Service will continue to monitor and adjust dosing as required. Assessment/Plan: ASSESSMENT Pharmacy to manage vancomycin per verbal consult for the treatment of a stage IV back ulceration. The patient was transferred from [facility] to TCU for rehabilitation, strengthening, and wound care per admission note. While the patient was at [facility], he had MRSA (+) cultures, but upon admission to TCU, cultures have shown no growth to date. Pharmacy spoke with nursing on 07/05 regarding the patient's past vancomycin history, and it was noted the patient had a trough at [facility] 07/04 @1015, which resulted in a value of 23. Per [facility] records , the patient was then on a vancomycin regimen of 1250mg IV Q48hrs (Last dose of vancomycin given was 07/04 @1713 at [facility]), but the home medication list stated 1500mg IV Q48hrs. The patient's current SCr is 2.21 (est CrCl ~23mL/min) , which has slightly worsened since admission labs (Scr 2.11, CrCl ~30mL/min). Since the patient had an elevated trough 07/04, and got a dose of vancomycin 07/04 @1713, a random level was drawn 07/05 @1815 which came back elevated at 26.2 (24hrs from last vanco dose). Another trough was drawn 07/06 @ 1815 which came back elevated once again at 23.5 (48hrs from last vanco dose). Today, 07/08/17, a random vancomycin level was drawn at 1210, which resulted in a therapeutic value of 17.1 (91hrs from last dose). The plan will be to target a trough of 15-20 for this patient based on indication and culture data. Given the patient's worsening renal function based on labs since admission, will plan on giving a 1x dose and rechecking a trough 48hrs after dose was given to establish an appropriate frequency interval for dosing. Pharmacy will continue to monitor daily. PLAN/ RECOMMENDATIONS 1. Vancomycin 1000mg IV x1 dose (13.7mg/kg based on TBW of 72.5kg) 2. Random vancomycin level 07/10/17 @1400 (48hrs from last dose given) 3. Pharmacy will continue to monitor culture data, renal function, and labs on a daily basis and make changes/ order labs as appropriate) <Frank Olmedo Chi - Last Filed: 07/08/17 21:45> Subjective/Objective Labs: Sodium 134 mmol/L (136-145) L 07/08/17 12:10 Potassium 4.4 mmol/L (3.5-5.1) 07/08/17 12:10 Chloride 100 mmol/L (98-107) 07/08/17 12:10 Carbon Dioxide 23.0 mmol/L (21.0-32.0) 07/08/17 12:10 Anion Gap 11 (5-15) 07/08/17 12:10 BUN 50 mg/dL (7-18) H 07/08/17 12:10 Creatinine 2.21 mg/dL (0.70-1.30) H 03/05/18 12:10 Est GFR (MDRD) Af Amer 38 mL/min (>60) L 07/08/17 12:10 Est GFR (MDRD) Non-Af 31 mL/min (>60) L 07/08/17 12:10 BUN/Creatinine Ratio 22.6 RATIO (10-20) H 07/08/17 12:10 Glucose 77 mg/dL (74-106) 07/08/17 12:10 Random Vancomycin 17.1 ug/mL (0.0-15.0) H 07/08/17 12:10 Pharmacy Plan for Drug Dosing: Pharmacy Service will continue to monitor and adjust dosing as required.
--- NOTE | 2017-07-08 14:59 | PCM.PN.RX ---
<Abelardo Lara - Last Filed: 07/08/17 14:59> Progress Note - Pharmacy Subjective: [facility] Admission Objective: Allergies chlorthalidone Allergy (Verified 07/04/17 23:00) Unknown ramipril [From Altace] Allergy (Verified 07/04/17 23:00) Unknown sulfamethoxazole [From Bactrim] Allergy (Verified 06/21/17 08:58) Other trazodone Allergy (Verified 07/04/17 23:00) Unknown trimethoprim [From Bactrim] Allergy (Verified 06/21/17 08:58) Other prednisone Adverse Reaction (Verified 06/21/17 08:58) Swelling Home Medications Medication Instructions Recorded Ferrous Gluconate 240 mg PO BID 02/05/16 Folic Acid 1 mg PO DAILY@0800 02/05/16 Magnesium Oxide [Magnesium] 400 mg PO DAILY@0800 02/05/16 Apixaban [Eliquis] 2.5 mg PO BID 03/16/16 Cholecalciferol (Vitamin D3) 1,000 unit PO DAILY@0800 10/14/16 [Vitamin D3] Acetaminophen [Tylenol] 650 mg PO Q6H PRN PRN 07/04/17 Aspirin 81 mg PO DAILY@0800 07/04/17 Atorvastatin Calcium [Lipitor] 20 mg PO QHS 07/04/17 Budesonide/Formoterol 160/4.5 2 puff INHALATION BID 07/04/17 [Symbicort 160/4.5 Mcg Inhaler (SP)] Calcium Alginate/Honey [Medihoney 1 each TP DAILY 07/04/17 3/4X12 Dressing] Cyanocobalamin [Vitamin B12] 1,000 mcg PO DAILY@0800 07/04/17 Gabapentin [Neurontin] 100 mg PO TIDCM 07/04/17 HydromorphONE [Dilaudid] 4 mg PO Q4H PRN PRN 07/04/17 Metoprolol Succinate [Toprol Xl] 12.5 mg PO DAILY 07/04/17 Piperacil/Tazobactam [Zosyn] 4.5 gm IV Q8 07/04/17 Sodium Hypochlorite [Dakins 1 applic TOPICAL DAILY 07/04/17 Solution 0.25% (1/2 Strength)] Vancomycin HCl in Dextrose 5 % 1.5 gm IV Q48H 07/04/17 [Vancomycin 1.5 Gram/250 ml-D5w] Vit C/E/Zn/Coppr/Lutein/Zeaxan 2 each PO QHS 07/04/17 [Preservision Areds 2 Softgel] Zinc Sulfate (50mg elemental) 220 mg PO DAILY 07/04/17 [Zinc Sulfate] Current Medications Generic Name Dose Route Start Last Admin Trade Name Freq PRN Reason Stop Dose Admin Acetaminophen 1,000 mg 07/05/17 08:46 Tylenol PO Q8H PRN MILD PAIN (1-310) Apixaban 2.5 mg 07/05/17 06:00 07/08/17 06:14 Eliquis PO 2.5 mg BID [facility] Administration Aspirin 81 mg 07/05/17 08:00 07/08/17 08:03 Aspirin, Baby PO 81 mg DAILY@0800 [facility] Administration Atorvastatin Calcium 20 mg 07/05/17 00:01 07/07/17 21:30 Lipitor PO 20 mg QHS [facility] Administration Bisacodyl 10 mg 07/05/17 08:46 Dulcolax RECTAL DAILY PRN Constipation Cholecalciferol 1,000 unit 07/05/17 08:00 07/08/17 08:03 Vitamin D PO 1,000 unit DAILY@0800 [facility] Administration Cyanocobalamin 1,000 mcg 07/05/17 08:00 07/08/17 08:03 Vitamin B12 PO 1,000 mcg DAILY@0800 [facility] Administration Ferrous Gluconate 325 mg 07/05/17 08:00 07/08/17 08:03 Ferrous Gluconate PO 325 mg BIDCM [facility] Administration Folic Acid 1 mg 07/05/17 08:00 07/08/17 08:06 Folic Acid PO 1 mg DAILY@0800 [facility] Administration Gabapentin 300 mg 07/05/17 12:45 07/08/17 12:04 Neurontin PO 300 mg TIDCM [facility] Administration Hydromorphone HCl 8 mg 07/05/17 08:46 07/08/17 14:09 Dilaudid PO 8 mg Q2H PRN Administration SEVERE PAIN (6-10/10) Piperacillin Sod/Tazobactam Sod 3.375 gm in 50 mls @ 12.5 mls/hr 07/05/17 00:30 07/08/17 06:18 Zosyn IV 12.5 mls/hr Q8 [facility] Administration Sodium Chloride 250 mls @ 15 mls/hr 07/05/17 01:01 07/08/17 06:18 IV 15 mls/hr .[id number] PRN Administration SALINE FLUSH Lactobacillus Acidophilus 1 tablet 07/07/17 18:00 07/08/17 06:14 Acidophilus PO 1 tablet BID [facility] Administration Magnesium Oxide 400 mg 07/05/17 08:00 07/08/17 08:03 Mag-Ox 400 PO 400 mg DAILY@0800 [facility] Administration Metoprolol Succinate 12.5 mg 07/05/17 06:00 07/08/17 06:14 Toprol Xl (Beta Yaquelin) PO 12.5 mg DAILY [facility] Administration Multi-Ingredient Cream 1 applic 07/05/17 19:50 07/05/17 21:47 Eucerin TOPICAL 1 applicatio BID PRN PRN Administration FACE DRY Protocol Multivitamins/Minerals 1 tablet 07/05/17 08:00 07/08/17 08:03 Multivitamin With Minerals PO 1 tablet DAILY@0800 [facility] Administration Polyethylene Glycol 17 gm 07/06/17 06:00 07/08/17 06:12 Miralax PO Not Given DAILY [facility] Fluticasone/Salmeterol 1 puff 07/05/17 06:00 07/08/17 06:12 Advair 250/50 Mcg Diskus INHALATION Not Given BID [facility] Senna/Docusate Sodium 2 tablet 07/05/17 18:00 07/08/17 06:13 Senokot-S, Uma-Colace PO Not Given BID [facility] Sodium Chloride 10 ml 07/05/17 01:01 07/08/17 06:18 IV 10 ml UD PRN Administration PICC FLUSH Tuberculin PPD 5 tu 07/12/17 10:00 Tubersol, Aplisol, Ppd ID 07/12/17 10:01 X1 ONE Zinc Sulfate 220 mg 07/05/17 06:00 07/08/17 06:15 Zinc Sulfate PO 220 mg DAILY SOF[facility] Administration Problem List PSVT (paroxysmal supraventricular tachycardia) (Acute) Stage 4 decubitus ulcer (Chronic) Acute on chronic systolic heart failure (Acute) Pulmonary embolism (Chronic) Delirium (Acute) Lymphedema (Chronic) Chronic kidney disease (Chronic) Non-Hodgkin lymphoma (Chronic) Vital Signs Temp Pulse Resp BP Pulse Ox 98.2 F 85 18 121/64 H 99 07/07/17 15:57 07/08/17 06:14 07/07/17 15:57 07/08/17 06:14 07/07/17 15:57 Oxygen Delivery Method Room Air Weight: 72.575 kg Body Mass Index (BMI) 24.3 Sodium 134 mmol/L (136-145) L 07/08/17 12:10 Potassium 4.4 mmol/L (3.5-5.1) 07/08/17 12:10 Chloride 100 mmol/L (98-107) 07/08/17 12:10 Carbon Dioxide 23.0 mmol/L (21.0-32.0) 07/08/17 12:10 Anion Gap 11 (5-15) 07/08/17 12:10 BUN 50 mg/dL (7-18) H 07/08/17 12:10 Creatinine 2.21 mg/dL (0.70-1.30) H 07/08/17 12:10 Est GFR (MDRD) Af Amer 38 mL/min (>60) L 07/08/17 12:10 Est GFR (MDRD) Non-Af 31 mL/min (>60) L 07/08/17 12:10 BUN/Creatinine Ratio 22.6 RATIO (10-20) H 07/08/17 12:10 Glucose 77 mg/dL (74-106) 07/08/17 12:10 Random Vancomycin 17.1 ug/mL (0.0-15.0) H 07/08/17 12:10 Assessment/Plan: 1) Pain APAP for mild pain, gabapentin, hydromorphone orally. Continue to monitor daily pain scores, prn medication use. * 2) ID Piperacillin/tazobactam for wound infection. WBC wnl, afebrile. Continue to monitor s/s infection. * Please clarify stop date for piperacillin/tazobactam. 3) Cardiac/Afib Apixaban twice daily, metoprolol, ASA, atorvastatin. BP/HR within goal ranges, Hgb/Hct trending down to low end of baseline, lipids at goal except HDl below goal, heptic enzymes normal except for elevated alk phos. Continue to monitor BP/HR, renal function, electrolytes, lipids, s/s bleeding, lipids, enzymes. 4) COPD Advair inh twice daily. Continue to monitor for s/s exacerbation. 5) Nutrition Multivitamin, Zn, Mg, FA, Fe, B12, D. Continue to monitor clinically. 6) GI Lactobacillus twice daily. Continue to monitor s/s GI distress. Psychotropic Medications: None Unnecessary Medications: None Bowel Regimen: 7) Senna/s, PEG, prn bisacodyl. Continue to monitor prn medication use, for constipation/diarrhea. Date of Note:: 07/08/17 - Provider Comments Provider responsibility: Provider responsible to enter orders to implement recommendations <Frank Olmedo Chi - Last Filed: 07/08/17 21:45> Progress Note - Pharmacy Subjective: [] Objective: Allergies chlorthalidone Allergy (Verified 07/04/17 23:00) Unknown ramipril [From Altace] Allergy (Verified 07/04/17 23:00) Unknown sulfamethoxazole [From Bactrim] Allergy (Verified 06/21/17 08:58) Other trazodone Allergy (Verified 07/04/17 23:00) Unknown trimethoprim [From Bactrim] Allergy (Verified 06/21/17 08:58) Other prednisone Adverse Reaction (Verified 06/21/17 08:58) Swelling Home Medications Medication Instructions Recorded Ferrous Gluconate 240 mg PO BID 02/05/16 Folic Acid 1 mg PO DAILY@0800 02/05/16 Magnesium Oxide [Magnesium] 400 mg PO DAILY@0800 02/05/16 Apixaban [Eliquis] 2.5 mg PO BID 03/16/16 Cholecalciferol (Vitamin D3) 1,000 unit PO DAILY@0800 10/14/16 [Vitamin D3] Acetaminophen [Tylenol] 650 mg PO Q6H PRN PRN 07/04/17 Aspirin 81 mg PO DAILY@0800 07/04/17 Atorvastatin Calcium [Lipitor] 20 mg PO QHS 07/04/17 Budesonide/Formoterol 160/4.5 2 puff INHALATION BID 07/04/17 [Symbicort 160/4.5 Mcg Inhaler (SP)] Calcium Alginate/Honey [Medihoney 1 each TP DAILY 07/04/17 3/4X12 Dressing] Cyanocobalamin [Vitamin B12] 1,000 mcg PO DAILY@0800 07/04/17 Gabapentin [Neurontin] 100 mg PO TIDCM 07/04/17 HydromorphONE [Dilaudid] 4 mg PO Q4H PRN PRN 07/04/17 Metoprolol Succinate [Toprol Xl] 12.5 mg PO DAILY 07/04/17 Piperacil/Tazobactam [Zosyn] 4.5 gm IV Q8 07/04/17 Sodium Hypochlorite [Dakins 1 applic TOPICAL DAILY 07/04/17 Solution 0.25% (1/2 Strength)] Vancomycin HCl in Dextrose 5 % 1.5 gm IV Q48H 07/04/17 [Vancomycin 1.5 Gram/250 ml-D5w] Vit C/E/Zn/Coppr/Lutein/Zeaxan 2 each PO QHS 07/04/17 [Preservision Areds 2 Softgel] Zinc Sulfate (50mg elemental) 220 mg PO DAILY 07/04/17 [Zinc Sulfate] Current Medications Generic Name Dose Route Start Last Admin Trade Name Freq PRN Reason Stop Dose Admin Acetaminophen 1,000 mg 07/05/17 08:46 Tylenol PO Q8H PRN MILD PAIN (1-310) Apixaban 2.5 mg 07/05/17 06:00 07/08/17 17:34 Eliquis PO 2.5 mg BID [facility] Administration Aspirin 81 mg 07/05/17 08:00 07/08/17 08:03 Aspirin, Baby PO 81 mg DAILY@0800 [facility] Administration Atorvastatin Calcium 20 mg 07/05/17 00:01 07/08/17 19:47 Lipitor PO 20 mg QHS [facility] Administration Bisacodyl 10 mg 07/05/17 08:46 Dulcolax RECTAL DAILY PRN Constipation Cholecalciferol 1,000 unit 07/05/17 08:00 07/08/17 08:03 Vitamin D PO 1,000 unit DAILY@0800 [facility] Administration Cyanocobalamin 1,000 mcg 07/05/17 08:00 07/08/17 08:03 Vitamin B12 PO 1,000 mcg DAILY@0800 [facility] Administration Ferrous Gluconate 325 mg 07/05/17 08:00 07/08/17 17:33 Ferrous Gluconate PO 325 mg BIDCM [facility] Administration Folic Acid 1 mg 07/05/17 08:00 07/08/17 08:06 Folic Acid PO 1 mg DAILY@0800 [facility] Administration Gabapentin 300 mg 07/05/17 12:45 07/08/17 17:33 Neurontin PO 300 mg TIDCM [facility] Administration Hydromorphone HCl 8 mg 07/05/17 08:46 07/08/17 14:09 Dilaudid PO 8 mg Q2H PRN Administration SEVERE PAIN (6-10) Piperacillin Sod/Tazobactam Sod 3.375 gm in 50 mls @ 12.5 mls/hr 07/05/17 00:30 07/08/17 21:01 Zosyn IV 12.5 mls/hr Q8 SOFIA Administration Sodium Chloride 250 mls @ 15 mls/hr 07/05/17 01:01 07/08/17 06:18 IV 15 mls/hr .[id number] PRN Administration SALINE FLUSH Lactobacillus Acidophilus 1 tablet 07/07/17 18:00 07/08/17 17:33 Acidophilus PO 1 tablet BID [facility] Administration Magnesium Oxide 400 mg 07/05/17 08:00 07/08/17 08:03 Mag-Ox 400 PO 400 mg DAILY@0800 [facility] Administration Metoprolol Succinate 12.5 mg 07/05/17 06:00 07/08/17 06:14 Toprol Xl (Beta Yaquelin) PO 12.5 mg DAILY [facility] Administration Multi-Ingredient Cream 1 applic 07/05/17 19:50 07/05/17 21:47 Eucerin TOPICAL 1 applicatio BID PRN PRN Administration FACE DRY Protocol Multivitamins/Minerals 1 tablet 07/05/17 08:00 07/08/17 08:03 Multivitamin With Minerals PO 1 tablet DAILY@0800 [facility] Administration Polyethylene Glycol 17 gm 07/06/17 06:00 07/08/17 06:12 Miralax PO Not Given DAILY [facility] Polysaccharide Iron Complex 150 mg 07/09/17 08:00 [facility] Fluticasone/Salmeterol 1 puff 07/05/17 06:00 07/08/17 17:33 Advair 250/50 Mcg Diskus INHALATION Not Given BID [facility] Senna/Docusate Sodium 2 tablet 07/05/17 18:00 07/08/17 17:33 Senokot-S, Uma-Colace PO Not Given BID [facility] Sodium Chloride 10 ml 07/05/17 01:01 07/08/17 20:59 IV 10 ml UD PRN Administration PICC FLUSH Tuberculin PPD 5 tu 07/12/17 10:00 Tubersol, Aplisol, Ppd ID 07/12/17 10:01 X1 ONE Zinc Sulfate 220 mg 07/05/17 06:00 07/08/17 06:15 Zinc Sulfate PO 220 mg DAILY [facility] Administration Problem List PSVT (paroxysmal supraventricular tachycardia) (Acute) Stage 4 decubitus ulcer (Chronic) Acute on chronic systolic heart failure (Acute) Pulmonary embolism (Chronic) Delirium (Acute) Lymphedema (Chronic) Chronic kidney disease (Chronic) Non-Hodgkin lymphoma (Chronic) Vital Signs Temp Pulse Resp BP Pulse Ox 98.3 F 74 18 113/62 99 07/08/17 16:00 07/08/17 16:00 07/08/17 16:00 07/08/17 16:00 07/08/17 16:00 Oxygen Delivery Method Room Air Weight: 72.575 kg Body Mass Index (BMI) 24.3 Sodium 134 mmol/L (136-145) L 07/08/17 12:10 Potassium 4.4 mmol/L (3.5-5.1) 07/08/17 12:10 Chloride 100 mmol/L (98-107) 07/08/17 12:10 Carbon Dioxide 23.0 mmol/L (21.0-32.0) 07/08/17 12:10 Anion Gap 11 (5-15) 07/08/17 12:10 BUN 50 mg/dL (7-18) H 07/08/17 12:10 Creatinine 2.21 mg/dL (0.70-1.30) H 07/08/17 12:10 Est GFR (MDRD) Af Amer 38 mL/min (>60) L 07/08/17 12:10 Est GFR (MDRD) Non-Af 31 mL/min (>60) L 07/08/17 12:10 BUN/Creatinine Ratio 22.6 RATIO (10-20) H 07/08/17 12:10 Glucose 77 mg/dL (74-106) 07/08/17 12:10 Random Vancomycin 17.1 ug/mL (0.0-15.0) H 07/08/17 12:10 Assessment/Plan: Psychotropic Medications: Unnecessary Medications: Bowel Regimen: - Provider Comments Provider responsibility: Provider responsible to enter orders to implement recommendations Provider Comments to Recommendations by Pharmacy: Agree
--- NOTE | 2017-07-08 15:09 | PHA.CONS_ITS ---
<Abelardo Lara - Last Filed: 07/08/17 14:59> Progress Note - Pharmacy Subjective: TCU Admission Objective: Allergies chlorthalidone Allergy (Verified 07/04/17 23:00) Unknown ramipril [From Altace] Allergy (Verified 07/04/17 23:00) Unknown sulfamethoxazole [From Bactrim] Allergy (Verified 06/21/17 08:58) Other trazodone Allergy (Verified 07/04/17 23:00) Unknown trimethoprim [From Bactrim] Allergy (Verified 06/21/17 08:58) Other prednisone Adverse Reaction (Verified 06/21/17 08:58) Swelling Home Medications Medication Instructions Recorded Ferrous Gluconate 240 mg PO BID 02/05/16 Folic Acid 1 mg PO DAILY@0800 02/05/16 Magnesium Oxide [Magnesium] 400 mg PO DAILY@0800 02/05/16 Apixaban [Eliquis] 2.5 mg PO BID 03/16/16 Cholecalciferol (Vitamin D3) 1,000 unit PO DAILY@0800 10/14/16 [Vitamin D3] Acetaminophen [Tylenol] 650 mg PO Q6H PRN PRN 07/04/17 Aspirin 81 mg PO DAILY@0800 07/04/17 Atorvastatin Calcium [Lipitor] 20 mg PO QHS 07/04/17 Budesonide/Formoterol 160/4.5 2 puff INHALATION BID 07/04/17 [Symbicort 160/4.5 Mcg Inhaler (SP)] Calcium Alginate/Honey [Medihoney 1 each TP DAILY 07/04/17 3/4X12 Dressing] Cyanocobalamin [Vitamin B12] 1,000 mcg PO DAILY@0800 07/04/17 Gabapentin [Neurontin] 100 mg PO TIDCM 07/04/17 HydromorphONE [Dilaudid] 4 mg PO Q4H PRN PRN 07/04/17 Metoprolol Succinate [Toprol Xl] 12.5 mg PO DAILY 07/04/17 Piperacil/Tazobactam [Zosyn] 4.5 gm IV Q8 07/04/17 Sodium Hypochlorite [Dakins 1 applic TOPICAL DAILY 07/04/17 Solution 0.25% (1/2 Strength)] Vancomycin HCl in Dextrose 5 % 1.5 gm IV Q48H 07/04/17 [Vancomycin 1.5 Gram/250 ml-D5w] Vit C/E/Zn/Coppr/Lutein/Zeaxan 2 each PO QHS 07/04/17 [Preservision Areds 2 Softgel] Zinc Sulfate (50mg elemental) 220 mg PO DAILY 07/04/17 [Zinc Sulfate] Current Medications Generic Name Dose Route Start Last Admin Trade Name Freq PRN Reason Stop Dose Admin Acetaminophen 1,000 mg 07/05/17 08:46 Tylenol PO Q8H PRN MILD PAIN (1-310) Apixaban 2.5 mg 07/05/17 06:00 07/08/17 06:14 Eliquis PO 2.5 mg BID [facility] Administration Aspirin 81 mg 07/05/17 08:00 07/08/17 08:03 Aspirin, Baby PO 81 mg DAILY@0800 [facility] Administration Atorvastatin Calcium 20 mg 07/05/17 00:01 07/07/17 21:30 Lipitor PO 20 mg QHS [facility] Administration Bisacodyl 10 mg 07/05/17 08:46 Dulcolax RECTAL DAILY PRN Constipation Cholecalciferol 1,000 unit 07/05/17 08:00 07/08/17 08:03 Vitamin D PO 1,000 unit DAILY@0800 [facility] Administration Cyanocobalamin 1,000 mcg 07/05/17 08:00 07/08/17 08:03 Vitamin B12 PO 1,000 mcg DAILY@0800 [facility] Administration Ferrous Gluconate 325 mg 07/05/17 08:00 07/08/17 08:03 Ferrous Gluconate PO 325 mg BIDCM [facility] Administration Folic Acid 1 mg 07/05/17 08:00 07/08/17 08:06 Folic Acid PO 1 mg DAILY@0800 [facility] Administration Gabapentin 300 mg 07/05/17 12:45 07/08/17 12:04 Neurontin PO 300 mg TIDCM [facility] Administration Hydromorphone HCl 8 mg 07/05/17 08:46 07/08/17 14:09 Dilaudid PO 8 mg Q2H PRN Administration SEVERE PAIN (6-10/10) Piperacillin Sod/Tazobactam Sod 3.375 gm in 50 mls @ 12.5 mls/hr 07/05/17 00: 30 07/08/17 06:18 Zosyn IV 12.5 mls/hr Q8 [facility] Administration Sodium Chloride 250 mls @ 15 mls/hr 07/05/17 01:01 07/08/17 06:18 IV 15 mls/hr .[id number] PRN Administration SALINE FLUSH Lactobacillus Acidophilus 1 tablet 07/07/17 18:00 07/08/17 06:14 Acidophilus PO 1 tablet BID [facility] Administration Magnesium Oxide 400 mg 07/05/17 08:00 07/08/17 08:03 Mag-Ox 400 PO 400 mg DAILY@0800 [facility] Administration Metoprolol Succinate 12.5 mg 07/05/17 06:00 07/08/17 06:14 Toprol Xl (Beta Yaquelin) PO 12.5 mg DAILY [facility] Administration Multi-Ingredient Cream 1 applic 07/05/17 19:50 07/05/17 21:47 Eucerin TOPICAL 1 applicatio BID PRN PRN Administration FACE DRY Protocol Multivitamins/Minerals 1 tablet 07/05/17 08:00 07/08/17 08:03 Multivitamin With Minerals PO 1 tablet DAILY@0800 [facility] Administration Polyethylene Glycol 17 gm 07/06/17 06:00 07/08/17 06:12 Miralax PO Not Given DAILY [facility] Fluticasone/Salmeterol 1 puff 07/05/17 06:00 07/08/17 06:12 Advair 250/50 Mcg Diskus INHALATION Not Given BID [facility] Senna/Docusate Sodium 2 tablet 07/05/17 18:00 07/08/17 06:13 Senokot-S, Uma-Colace PO Not Given BID [facility] Sodium Chloride 10 ml 07/05/17 01:01 07/08/17 06:18 IV 10 ml UD PRN Administration PICC FLUSH Tuberculin PPD 5 tu 07/12/17 10:00 Tubersol, Aplisol, Ppd ID 07/12/17 10:01 X1 ONE Zinc Sulfate 220 mg 07/05/17 06:00 07/08/17 06:15 Zinc Sulfate PO 220 mg DAILY [facility] Administration Problem List PSVT (paroxysmal supraventricular tachycardia) (Acute) Stage 4 decubitus ulcer (Chronic) Acute on chronic systolic heart failure (Acute) Pulmonary embolism (Chronic) Delirium (Acute) Lymphedema (Chronic) Chronic kidney disease (Chronic) Non-Hodgkin lymphoma (Chronic) Vital Signs Temp Pulse Resp BP Pulse Ox 98.2 F 85 18 121/64 H 99 07/07/17 15:57 07/08/17 06:14 07/07/17 15:57 07/08/17 06:14 07/07/17 15:57 Oxygen Delivery Method Room Air Weight: 72.575 kg Body Mass Index (BMI) 24.3 Sodium 134 mmol/L (136-145) L 07/08/17 12:10 Potassium 4.4 mmol/L (3.5-5.1) 07/08/17 12:10 Chloride 100 mmol/L (98-107) 07/08/17 12:10 Carbon Dioxide 23.0 mmol/L (21.0-32.0) 07/08/17 12:10 Anion Gap 11 (5-15) 07/08/17 12:10 BUN 50 mg/dL (7-18) H 07/08/17 12:10 Creatinine 2.21 mg/dL (0.70-1.30) H 07/08/17 12:10 Est GFR (MDRD) Af Amer 38 mL/min (>60) L 07/08/17 12:10 Est GFR (MDRD) Non-Af 31 mL/min (>60) L 07/08/17 12:10 BUN/Creatinine Ratio 22.6 RATIO (10-20) H 07/08/17 12:10 Glucose 77 mg/dL (74-106) 07/08/17 12:10 Random Vancomycin 17.1 ug/mL (0.0-15.0) H 07/08/17 12:10 Assessment/Plan: 1) Pain APAP for mild pain, gabapentin, hydromorphone orally. Continue to monitor daily pain scores, prn medication use. * 2) ID Piperacillin/tazobactam for wound infection. WBC wnl, afebrile. Continue to monitor s/s infection. * Please clarify stop date for piperacillin/tazobactam. 3) Cardiac/Afib Apixaban twice daily, metoprolol, ASA, atorvastatin. BP/HR within goal ranges , Hgb/Hct trending down to low end of baseline, lipids at goal except HDl below goal, heptic enzymes normal except for elevated alk phos. Continue to monitor BP /HR, renal function, electrolytes, lipids, s/s bleeding, lipids, enzymes. 4) COPD Advair inh twice daily. Continue to monitor for s/s exacerbation. 5) Nutrition Multivitamin, Zn, Mg, FA, Fe, B12, D. Continue to monitor clinically. 6) GI Lactobacillus twice daily. Continue to monitor s/s GI distress. Psychotropic Medications: None Unnecessary Medications: None Bowel Regimen: 7) Senna/s, PEG, prn bisacodyl. Continue to monitor prn medication use, for constipation/diarrhea. Date of Note:: 07/08/17 - Provider Comments Provider responsibility: Provider responsible to enter orders to implement recommendations <Frank Olmedo Chi - Last Filed: 07/08/17 21:45> Progress Note - Pharmacy Subjective: [] Objective: Allergies chlorthalidone Allergy (Verified 07/04/17 23:00) Unknown ramipril [From Altace] Allergy (Verified 07/04/17 23:00) Unknown sulfamethoxazole [From Bactrim] Allergy (Verified 06/21/17 08:58) Other trazodone Allergy (Verified 07/04/17 23:00) Unknown trimethoprim [From Bactrim] Allergy (Verified 06/21/17 08:58) Other prednisone Adverse Reaction (Verified 06/21/17 08:58) Swelling Home Medications Medication Instructions Recorded Ferrous Gluconate 240 mg PO BID 02/05/16 Folic Acid 1 mg PO DAILY@0800 02/05/16 Magnesium Oxide [Magnesium] 400 mg PO DAILY@0800 02/05/16 Apixaban [Eliquis] 2.5 mg PO BID 03/16/16 Cholecalciferol (Vitamin D3) 1,000 unit PO DAILY@0800 10/14/16 [Vitamin D3] Acetaminophen [Tylenol] 650 mg PO Q6H PRN PRN 07/04/17 Aspirin 81 mg PO DAILY@0800 07/04/17 Atorvastatin Calcium [Lipitor] 20 mg PO QHS 07/04/17 Budesonide/Formoterol 160/4.5 2 puff INHALATION BID 07/04/17 [Symbicort 160/4.5 Mcg Inhaler (SP)] Calcium Alginate/Honey [Medihoney 1 each TP DAILY 07/04/17 3/4X12 Dressing] Cyanocobalamin [Vitamin B12] 1,000 mcg PO DAILY@0800 07/04/17 Gabapentin [Neurontin] 100 mg PO TIDCM 07/04/17 HydromorphONE [Dilaudid] 4 mg PO Q4H PRN PRN 07/04/17 Metoprolol Succinate [Toprol Xl] 12.5 mg PO DAILY 07/04/17 Piperacil/Tazobactam [Zosyn] 4.5 gm IV Q8 07/04/17 Sodium Hypochlorite [Dakins 1 applic TOPICAL DAILY 07/04/17 Solution 0.25% (1/2 Strength)] Vancomycin HCl in Dextrose 5 % 1.5 gm IV Q48H 07/04/17 [Vancomycin 1.5 Gram/250 ml-D5w] Vit C/E/Zn/Coppr/Lutein/Zeaxan 2 each PO QHS 07/04/17 [Preservision Areds 2 Softgel] Zinc Sulfate (50mg elemental) 220 mg PO DAILY 07/04/17 [Zinc Sulfate] Current Medications Generic Name Dose Route Start Last Admin Trade Name Freq PRN Reason Stop Dose Admin Acetaminophen 1,000 mg 07/05/17 08:46 Tylenol PO Q8H PRN MILD PAIN (1-310) Apixaban 2.5 mg 07/05/17 06:00 07/08/17 17:34 Eliquis PO 2.5 mg BID [facility] Administration Aspirin 81 mg 07/05/17 08:00 07/08/17 08:03 Aspirin, Baby PO 81 mg DAILY@0800 [facility] Administration Atorvastatin Calcium 20 mg 07/05/17 00:01 07/08/17 19:47 Lipitor PO 20 mg QHS [facility] Administration Bisacodyl 10 mg 07/05/17 08:46 Dulcolax RECTAL DAILY PRN Constipation Cholecalciferol 1,000 unit 07/05/17 08:00 07/08/17 08:03 Vitamin D PO 1,000 unit DAILY@0800 [facility] Administration Cyanocobalamin 1,000 mcg 07/05/17 08:00 07/08/17 08:03 Vitamin B12 PO 1,000 mcg DAILY@0800 [facility] Administration Ferrous Gluconate 325 mg 07/05/17 08:00 07/08/17 17:33 Ferrous Gluconate PO 325 mg BIDCM [facility] Administration Folic Acid 1 mg 07/05/17 08:00 07/08/17 08:06 Folic Acid PO 1 mg DAILY@0800 [facility] Administration Gabapentin 300 mg 07/05/17 12:45 07/08/17 17:33 Neurontin PO 300 mg TIDCM [facility] Administration Hydromorphone HCl 8 mg 07/05/17 08:46 07/08/17 14:09 Dilaudid PO 8 mg Q2H PRN Administration SEVERE PAIN (6-10) Piperacillin Sod/Tazobactam Sod 3.375 gm in 50 mls @ 12.5 mls/hr 07/05/17 00: 30 07/08/17 21:01 Zosyn IV 12.5 mls/hr Q8 [facility] Administration Sodium Chloride 250 mls @ 15 mls/hr 07/05/17 01:01 07/08/17 06:18 IV 15 mls/hr .[id number] PRN Administration SALINE FLUSH Lactobacillus Acidophilus 1 tablet 07/07/17 18:00 07/08/17 17:33 Acidophilus PO 1 tablet BID [facility] Administration Magnesium Oxide 400 mg 07/05/17 08:00 07/08/17 08:03 Mag-Ox 400 PO 400 mg DAILY@0800 [facility] Administration Metoprolol Succinate 12.5 mg 07/05/17 06:00 07/08/17 06:14 Toprol Xl (Beta Yaquelin) PO 12.5 mg DAILY [facility] Administration Multi-Ingredient Cream 1 applic 07/05/17 19:50 07/05/17 21:47 Eucerin TOPICAL 1 applicatio BID PRN PRN Administration FACE DRY Protocol Multivitamins/Minerals 1 tablet 07/05/17 08:00 07/08/17 08:03 Multivitamin With Minerals PO 1 tablet DAILY@0800 [facility] Administration Polyethylene Glycol 17 gm 07/06/17 06:00 07/08/17 06:12 Miralax PO Not Given DAILY [facility] Polysaccharide Iron Complex 150 mg 07/09/17 08:00 [facility] Fluticasone/Salmeterol 1 puff 07/05/17 06:00 07/08/17 17:33 Advair 250/50 Mcg Diskus INHALATION Not Given BID [facility] Senna/Docusate Sodium 2 tablet 07/05/17 18:00 07/08/17 17:33 Senokot-S, Uma-Colace PO Not Given BID [facility] Sodium Chloride 10 ml 07/05/17 01:01 07/08/17 20:59 IV 10 ml UD PRN Administration PICC FLUSH Tuberculin PPD 5 tu 07/12/17 10:00 Tubersol, Aplisol, Ppd ID 07/12/17 10:01 X1 ONE Zinc Sulfate 220 mg 07/05/17 06:00 07/08/17 06:15 Zinc Sulfate PO 220 mg DAILY [facility] Administration Problem List PSVT (paroxysmal supraventricular tachycardia) (Acute) Stage 4 decubitus ulcer (Chronic) Acute on chronic systolic heart failure (Acute) Pulmonary embolism (Chronic) Delirium (Acute) Lymphedema (Chronic) Chronic kidney disease (Chronic) Non-Hodgkin lymphoma (Chronic) Vital Signs Temp Pulse Resp BP Pulse Ox 98.3 F 74 18 113/62 99 07/08/17 16:00 07/08/17 16:00 07/08/17 16:00 07/08/17 16:00 07/08/17 16:00 Oxygen Delivery Method Room Air Weight: 72.575 kg Body Mass Index (BMI) 24.3 Sodium 134 mmol/L (136-145) L 07/08/17 12:10 Potassium 4.4 mmol/L (3.5-5.1) 07/08/17 12:10 Chloride 100 mmol/L (98-107) 07/08/17 12:10 Carbon Dioxide 23.0 mmol/L (21.0-32.0) 07/08/17 12:10 Anion Gap 11 (5-15) 07/08/17 12:10 BUN 50 mg/dL (7-18) H 07/08/17 12:10 Creatinine 2.21 mg/dL (0.70-1.30) H 07/08/17 12:10 Est GFR (MDRD) Af Amer 38 mL/min (>60) L 07/08/17 12:10 Est GFR (MDRD) Non-Af 31 mL/min (>60) L 07/08/17 12:10 BUN/Creatinine Ratio 22.6 RATIO (10-20) H 07/08/17 12:10 Glucose 77 mg/dL (74-106) 07/08/17 12:10 Random Vancomycin 17.1 ug/mL (0.0-15.0) H 07/08/17 12:10 Assessment/Plan: Psychotropic Medications: Unnecessary Medications: Bowel Regimen: - Provider Comments Provider responsibility: Provider responsible to enter orders to implement recommendations Provider Comments to Recommendations by Pharmacy: Agree
[2017-07-08 16:00] VITALS: BP 113/62; PULSE 74; RESP 18; TEMP 36.8; O2SAT 99
[2017-07-08] MEDS: Atorvastatin Calcium 20 MG Tablet PO (19:47)
[2017-07-09] MEDS: HYDROmorphone 2 MG TABLET 8 MG PO ×4 (03:16→21:35)
[2017-07-09 04:17] VITALS: BP 116/67; PULSE 75
[2017-07-09] MEDS: Metoprolol(XL)Succ 25 MG Tablet 12.5 MG PO (04:17)
[2017-07-09] MEDS: APIXABAN 2.5 MG TABLET PO ×2 (04:20→17:55)
[2017-07-09] MEDS: 0.9% NaCl IVPB Med Flush (250 mL) 15 ML IV (05:39)
[2017-07-09] MEDS: 0.9% NaCl PICC Flush 10 ML IV ×3 (05:44→21:36)
[2017-07-09] MEDS: Magnesium Oxide 400 MG Tablet PO (07:53)
[2017-07-09] MEDS: Gabapentin 100 MG Capsule 300 MG PO ×3 (07:53→17:54)
[2017-07-09] MEDS: Multivitamins,Ther W-Minerals Tablet 1 TABLET PO (07:53)
[2017-07-09] MEDS: Aspirin 81 MG TAB.CHEW PO (07:53)
[2017-07-09] MEDS: Folic Acid 1 MG Tablet PO (07:53)
[2017-07-09] MEDS: Iron Polysaccharide Complex 150 MG CAPSULE PO (07:53)
[2017-07-09] MEDS: Cyanocobalamin 500 MCG Tablet 1000 MCG PO (07:54)
--- NOTE | 2017-07-09 12:05 | CASEMGMT ---
Social Work Spoke with resident and resident spouse in room. Resident is requesting for this social work case manager to inquire about resident discharging home with I.V. therapy and whether or not insurance would cover the cost. Resident voicing no preference of infusion company, [facility] to be utilized. Support given. Referral made to [facility], clinical information faxed for a benefits check. No discharge date set at this time. Will continue to follow. Desi PEREZ, BEHAVIOR SPECIALIST
--- NOTE | 2017-07-09 13:23 | CASEMGMT ---
Brief interview for mental status (BIMS) and resident mood interview (PHQ-9) completed on this day. BIMS score 13/15. PHQ-9 score 09/29
[2017-07-09] MEDS: Acetaminophen 500 MG Tablet 1000 MG PO (13:57)
--- NOTE | 2017-07-09 14:53 | CASEMGMT ---
Social Work Telephone call from Ramonita CHAPARRO ([phone]). Ramonita communicating that resident out of pocket expense for home I.V therapy with the current medication would be $20/day for supplies and $89.81 per a dispense (a dispense is typically 7 days of the medication). This social media marketing specialist communicated this information to resident spouse. Planning to discuss with resident and team further on a safe discharge plan for resident at the Plan of Care Meeting on 07/10/17. Support given. Will continue to follow. Desi PEREZ, EMD TEACHER
--- NOTE | 2017-07-09 18:58 | NURSING ---
pt requesting his procrit be restarted along with dr hsu, pharmacy notified. Dr Olmedo aware and new order to restart at 10,000 units every other saturday.
[2017-07-09] MEDS: Atorvastatin Calcium 20 MG Tablet PO (19:37)
[2017-07-10] MEDS: HYDROmorphone 2 MG TABLET 8 MG PO ×5 (05:00→21:22)
[2017-07-10] MEDS: APIXABAN 2.5 MG TABLET PO ×2 (05:00→18:04)
[2017-07-10 05:09] VITALS: BP 135/75; PULSE 79
[2017-07-10] MEDS: Metoprolol(XL)Succ 25 MG Tablet 12.5 MG PO (05:09)
[2017-07-10] MEDS: Gabapentin 100 MG Capsule 300 MG PO ×3 (09:06→18:02)
[2017-07-10] MEDS: Aspirin 81 MG TAB.CHEW PO (09:07)
[2017-07-10] MEDS: Folic Acid 1 MG Tablet PO (09:08)
[2017-07-10] MEDS: Iron Polysaccharide Complex 150 MG CAPSULE PO (09:08)
[2017-07-10] MEDS: Multivitamins,Ther W-Minerals Tablet 1 TABLET PO (09:08)
[2017-07-10] MEDS: Magnesium Oxide 400 MG Tablet PO (09:08)
[2017-07-10] MEDS: Cyanocobalamin 500 MCG Tablet 1000 MCG PO (09:09)
--- NOTE | 2017-07-10 10:55 | CASEMGMT ---
Plan of care meeting held. Resident present as well as resident spouse. No discharge date set at this time. Resident wanting to discharge on 07/12/17 but aware that I.V's do not have any stop date at this time. Resident is requesting for a second opinion from Infectious Disease here at [facility], request communicated to nursing staff. Resident with the goal to discharge on 07/12/17, pending second opinion from Infectious Disease. Support given. Will continue to follow. Desi PEREZ, HITCHER
[2017-07-10 12:06] VITALS: RESP 18
--- NOTE | 2017-07-10 13:22 | NURSING ---
pt wanting to see our infectious disease group for 2nd opinion instead of traveling back to [facility]. consult order placed for Dr Major who saw him 2 weeks ago.
[2017-07-10 14:45] LABS: Vancomycin, Random Level 19.2 ug/mL (0.0-15.0)
--- NOTE | 2017-07-10 15:28 | PHA.PHARE_ITS ---
Subjective/Objective Antibiotic: Vancomycin Type of Consult: Follow-up Labs: Sodium 134 mmol/L (136-145) L 07/08/17 12:10 Potassium 4.4 mmol/L (3.5-5.1) 07/08/17 12:10 Chloride 100 mmol/L (98-107) 07/08/17 12:10 Carbon Dioxide 23.0 mmol/L (21.0-32.0) 07/08/17 12:10 Anion Gap 11 (5-15) 07/08/17 12:10 BUN 50 mg/dL (7-18) H 07/08/17 12:10 Creatinine 2.21 mg/dL (0.70-1.30) H 07/08/17 12:10 Est GFR (MDRD) Af Amer 38 mL/min (>60) L 07/08/17 12:10 Est GFR (MDRD) Non-Af 31 mL/min (>60) L 07/08/17 12:10 BUN/Creatinine Ratio 22.6 RATIO (10-20) H 07/08/17 12:10 Glucose 77 mg/dL (74-106) 07/08/17 12:10 Random Vancomycin 19.2 ug/mL (0.0-15.0) H 07/10/17 13:55 Estimated Creatinine Clearance: 23 ML/MIN Pharmacy Plan for Drug Dosing: ASSESSMENT Pharmacy to manage vancomycin per verbal consult for the treatment of a stage IV back ulceration. The patient was transferred from [facility] to TCU for rehabilitation, strengthening, and wound care per admission note. While the patient was at [facility], he had MRSA (+) cultures, but upon admission to TCU, cultures have shown no growth to date. A dose of vancomycin 1g IV x1 was given on 07/08/17, and a random trough was drawn 07/10/17 which resulted in a value of 19.2 (drawn 48hrs from last dose given ). Will plan on giving an additional 1x dose of vancomycin, draw another random 48hrs from the dose, and determine an adequate dosing interval for this patient after the level comes back on 07/12/17. Will also plan on ordering a BMP with the random level to assess the patient's renal function, since it has slightly worsened since admission labs. RECOMMENDATION/PLAN 1. Vancomycin 1g IV x1 (12.3 mg/kg based on most recent TBW of 81.25kg) 2. Random vancomycin level 07/12/17 (48hrs from last dose) 3. BMP ordered for 07/12/17 to assess renal function 4. Pharmacy will continue to monitor patient daily and make changes as appropriate
[2017-07-10 16:00] VITALS: BP 132/74; PULSE 77; RESP 18; TEMP 36.8; O2SAT 97
--- NOTE | 2017-07-10 16:25 | CHAPLAIN ---
Type of Pastoral Visit _x__ Initial Visit ___ Follow-up Visit ___ On-call Visit ___ General Patient Visit ___ Spiritual Assessment ___ Family Conference ___ Bereavement ___ Rapid Response ___ Code Blue ___ Other (describe below) Pastoral Care Referral From _x__ Patient ___ Family ___ Nurse ___ Physician ___ Steel Shot Header Operator ___ Clinical Quality Assurance Specialist ___ Other (describe below) Sacrament/Intervention _x__ Active listening ___ Anointing ___ Rastafarian ___ Bereavement ___ Communion ___ Cindy exploration ___ ___ Life review _x__ Prayer ___ Reconciliation ___ Sacrament of Sick ___ Supportive presence ___ Wedding ___ Other (describe below) Pastoral Comments
[2017-07-10] MEDS: 0.9% NaCl PICC Flush 10 ML IV (21:18)
[2017-07-10] MEDS: Atorvastatin Calcium 20 MG Tablet PO (21:23)
[2017-07-10] MEDS: Sodium Chloride 0.65% 1 SPRAY SPRAY.BTL 2 SPRAY NASAL (23:30)
[2017-07-11] MEDS: HYDROmorphone 2 MG TABLET 8 MG PO ×4 (01:34→17:27)
[2017-07-11] MEDS: 0.9% NaCl IVPB Med Flush (250 mL) 15 ML IV (05:37)
[2017-07-11 05:41] VITALS: BP 110/69; PULSE 79
[2017-07-11] MEDS: Metoprolol(XL)Succ 25 MG Tablet 12.5 MG PO (05:41)
[2017-07-11 05:57] LABS: Anion Gap 7 (5-15); BUN 53 mg/dL (7-18); BUN/Creat Ratio 22.9 RATIO (10-20); Calcium,Total 8.9 mg/dL (8.5-10.1); Chloride 102 mmol/L (98-107); Creatinine, Serum 2.31 mg/dL (0.70-1.30); EST Glomerular Filtration Rate 30 mL/min (>60); Est Glom Filt Rate - Afr Amer 36 mL/min (>60); Estimated Creatinine Clearance 27.55 ml/min; Glucose 89 mg/dL (74-106); Potassium 4.3 mmol/L (3.5-5.1); Sodium Level 134 mmol/L (136-145)
--- NOTE | 2017-07-11 07:51 | NURSING ---
AM lab work faxed by this nurse.
[2017-07-11] MEDS: Gabapentin 100 MG Capsule 300 MG PO ×3 (08:10→17:28)
[2017-07-11] MEDS: Aspirin 81 MG TAB.CHEW PO (08:11)
[2017-07-11] MEDS: Magnesium Oxide 400 MG Tablet PO (08:12)
[2017-07-11] MEDS: Iron Polysaccharide Complex 150 MG CAPSULE PO (08:12)
[2017-07-11] MEDS: Folic Acid 1 MG Tablet PO (08:12)
[2017-07-11] MEDS: Cyanocobalamin 500 MCG Tablet 1000 MCG PO (08:13)
[2017-07-11] MEDS: Multivitamins,Ther W-Minerals Tablet 1 TABLET PO (08:13)
--- NOTE | 2017-07-11 11:21 | PCM.HP.ID ---
Problem List (1) Bacteremia Status: Acute Reason for Consult: bacteremia Consulted by: Dr. 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 At [facility], repeat imaging showed improvement in collection, picc placed, and transferred to TCU on iv vanc/zosyn. ID at [facility] was Dr. Gerardo. Plan was for several weeks of iv abx, repeat MRI prior to stopping medication to gauge final duration. Pt reports pain is well controlled, working well with therapy, no fever, no issues with picc, mild loose stool. He does not want to have to travel back to [place] for follow-up appts and wants to continue iv abx at home. Full ROS performed and neg except as noted above. 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) nonhealing ulcer lumbar back area Open wound of lower back (Chronic) with muscle and bone exposed s/p surgical debridement of abscess s/p lumbar spine surgery Chronic ulcer of right leg with fat layer exposed (Chronic) Lumbar disc disease (Chronic) Edema of both legs (Chronic) Leg swelling (Chronic) History of diverticulitis (Chronic) Hyperlipidemia (Chronic) Back pain at L4-L5 level (Chronic) History of non-Hodgkin's lymphoma (Chronic) Hypertension (Chronic) Shortness of breath (Chronic) Hypoxia (Chronic) History of atrial fibrillation (Chronic) Surgical wound dehiscence (Chronic) Renal insufficiency (Chronic) Soft tissue radionecrosis (Chronic) Ulcer of left heel and midfoot with fat layer exposed (Chronic) Decubitus ulcer, heel, right, unstageable (Chronic) Peripheral vascular disease (Chronic) Edema, lower extremity (Chronic) Malnutrition (Chronic) Pressure ulcer, back, lower (Chronic) Ulcer of right foot with fat layer exposed (Chronic) Decubitus ulcer of right foot, unstageable (Chronic) Peripheral vascular disease (Chronic) Ulcer of right lower extremity with fat layer exposed (Chronic) Tinea unguium (Chronic) Generalized weakness (Chronic) Allergies/Adverse Reactions: Allergies chlorthalidone Allergy (Verified 07/04/17 23:00) Unknown ramipril [From Altace] Allergy (Verified 07/04/17 23:00) Unknown sulfamethoxazole [From Bactrim] Allergy (Verified 06/21/17 08:58) Other trazodone Allergy (Verified 07/04/17 23:00) Unknown trimethoprim [From Bactrim] Allergy (Verified 06/21/17 08:58) Other prednisone Adverse Reaction (Verified 06/21/17 08:58) Swelling Home Medications: Ambulatory Orders Medication Instructions Recorded Ferrous Gluconate 240 mg PO BID 02/05/16 Folic Acid 1 mg PO DAILY@0800 02/05/16 Magnesium Oxide [Magnesium] 400 mg PO DAILY@0800 02/05/16 Apixaban [Eliquis] 2.5 mg PO BID 03/16/16 Cholecalciferol (Vitamin D3) 1,000 unit PO DAILY@0800 10/14/16 [Vitamin D3] Acetaminophen [Tylenol] 650 mg PO Q6H PRN PRN 07/04/17 Aspirin 81 mg PO DAILY@0800 07/04/17 Atorvastatin Calcium [Lipitor] 20 mg PO QHS 07/04/17 Budesonide/Formoterol 160/4.5 2 puff INHALATION BID 07/04/17 [Symbicort 160/4.5 Mcg Inhaler (SP)] Calcium Alginate/Honey [Medihoney 1 each TP DAILY 07/04/17 3/4X12 Dressing] Cyanocobalamin [Vitamin B12] 1,000 mcg PO DAILY@0800 07/04/17 Gabapentin [Neurontin] 100 mg PO TIDCM 07/04/17 HydromorphONE [Dilaudid] 4 mg PO Q4H PRN PRN 07/04/17 Metoprolol Succinate [Toprol Xl] 12.5 mg PO DAILY 07/04/17 Sodium Hypochlorite [Dakins 1 applic TOPICAL DAILY 07/04/17 Solution 0.25% (1/2 Strength)] Vit C/E/Zn/Coppr/Lutein/Zeaxan 2 each PO QHS 07/04/17 [Preservision Areds 2 Softgel] Zinc Sulfate (50mg elemental) 220 mg PO DAILY 07/04/17 [Zinc Sulfate] Piperacil/Tazobactam [Zosyn] 3.375 gm IV Q8 20 Days #60 ml 07/11/17 Vancomycin/0.9 % Sod Chloride 1 gm IV Q48H 20 Days #10 plast..bag 07/11/17 [Vancomycin 1 G/100Ml-0.9% NaCl] - Social History SMOKING STATUS:: Former smoker Vital Signs Temp Pulse Resp BP Pulse Ox 98.2 F 79 18 110/69 97 07/10/17 16:00 07/11/17 05:41 07/10/17 16:00 07/11/17 05:41 07/10/17 16:00 Oxygen Delivery Method Room Air Weight: 81.25 kg Body Mass Index (BMI) 24.3 Microbiology Past 72 Hours 07/05/17 17:35 Urine Culture - Final Urine, Clean Catch Culture exhibits no growth. Laboratory Tests Past 24 Hrs 07/10/17 07/11/17 13:55 05:30 Sodium 134 L Potassium 4.3 Chloride 102 Carbon Dioxide 25.0 Anion Gap 7 BUN 53 H Creatinine 2.31 H Estim Creat Clear Calc 27.55 Est GFR (MDRD) Af Amer 36 L Est GFR (MDRD) Non-Af 30 L BUN/Creatinine Ratio 22.9 H Glucose 89 Calcium 8.9 Random Vancomycin 19.2 H - Other Studies Radiology: [] reviewed Other Studies: [] Route of nutrition/ use of supplements: [] Nutritional Intake: [] IV Site: [] Garcia Catheter: [] - Physical Exam General: Alert, Oriented x3, Cooperative, No apparent distress HEENT: Atraumatic, PERRLA, EOMI Neck: Supple, No Nodes Lungs: Clear to auscultation, Normal air movement Cardiovascular: Regular rate, Regular Rhythm, No murmurs Abdomen: Bowel Sounds Present, Soft, Non Tender, Non-Distended Extremities: No edema Skin: Ulcer/ Wound - wound vac in place, reviewed photos IV Site: PICC, without redness Musculoskeletal: No Tenderness to Palpation of Joints or Extremities Neurological: Cranial nerves II-XII grossly intact - Assessment/Plan Antibiotics: [] Assessment/Plan: [] Active and Suspected Problems PSVT (paroxysmal supraventricular tachycardia) (Acute) Acute on chronic systolic heart failure (Acute) Delirium (Acute) 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 Doing well on iv vanc/zosyn. Plan is for discharge home tomorrow on iv vanc 1gm q48 and iv zosyn 3.375gm q8h with tentative stop date 07/31/17. Will need repeat L-spine MRI with contrast on/after 07/24/17, as iv abx will need to be continued until abscess is resolved. Weekly bmp, cbc, vanc trough, and esr while on iv abx. ID follow-up at wound care center after MRI is done and prior to stopping iv abx. Thank you, will follow, d/w rehabilitation caseworker and nursing. Rx written for labs, abx, and MRI.
[2017-07-11] MEDS: 0.9% NaCl PICC Flush 10 ML IV (13:35)
[2017-07-11 16:00] VITALS: BP 141/70; PULSE 80; RESP 20; TEMP 36.7; O2SAT 99
--- NOTE | 2017-07-11 16:44 | CASEMGMT ---
Social Work Spoke with Infectious Disease, Dr. Major. Dr. Major agreeable to resident discharge on 07/12/17 as resident is requesting. Spoke with resident in room. Resident is requesting for discharge date to be set for 07/12/17 and is aware that there are out of pocket expenses to do the I.V therapy in the home. Staff/therapy are agreeable to discharge date. Resident to speak with [facility] on out of pocket expenses and verbally agreeing to payment. Resident requesting for home health nursing to be set up through [facility] ([facility]). Physical and Occupational therapy are also recommending for resident to have continued services within the home, resident is agreeable. Resident reporting to have all needed durable medical equipment already set up within the home. Resident spouse to provide transportation home for resident and is agreeable to discharge plan. Support given. [facility] This social [facility] making referral for prison, physical and occupational therapy. Marzena reporting to be able to do a start of care time of 1400 on 07/12/17 for the 1400 dose of the I.V therapy. Order to be completed. Resident agreeable to the start of care time and plans to be home by 1400. [facility] This [facility] communicating above information. Ramonita planning to initiate call to resident to confirm payment and is aware of start of care time being 1400 on 07/12/17. Orders for I.V antibiotics faxed to [facility]. Start of care time communicated to nursing staff. Proposed discharge date: 07/12/17 PLAN: Discharge home with spouse and home health services along with home I.V. therapy and wound care. Desi PEREZ, WEB MERCHANT
[2017-07-11] MEDS: Atorvastatin Calcium 20 MG Tablet PO (21:30)
[2017-07-12] MEDS: HYDROmorphone 2 MG TABLET 8 MG PO ×2 (03:24→10:50)
[2017-07-12 04:44] VITALS: BP 129/70; PULSE 86
[2017-07-12] MEDS: Metoprolol(XL)Succ 25 MG Tablet 12.5 MG PO (04:44)
[2017-07-12] MEDS: Gabapentin 100 MG Capsule 300 MG PO ×2 (04:45→12:00)
[2017-07-12 04:51] VITALS: BP 129/70; PULSE 86; RESP 15; O2SAT 96
[2017-07-12 06:20] VITALS: PULSE 80; RESP 15; O2SAT 94
[2017-07-12] MEDS: Acetaminophen 500 MG Tablet 1000 MG PO (06:32)
--- NOTE | 2017-07-12 08:15 | PCM.DC ---
- Discharge Diagnoses Current Active Problems: Current Active and Chronic Problems PSVT (paroxysmal supraventricular tachycardia) (Acute) Stage 4 decubitus ulcer (Chronic) Acute on chronic systolic heart failure (Acute) Pulmonary embolism (Chronic) Delirium (Acute) Lymphedema (Chronic) Chronic kidney disease (Chronic) Non-Hodgkin lymphoma (Chronic) You will use the following diet at home:: No restrictions, Regular Your food should be the consistency of: Regular Your liquids should be the consistency of: Regular/Thin Discharge Activity: Return to Normal Activity, Use Walker Weight Bearing Status: Weight bearing as tolerated Call your doctor if you observe: Fever of 101 or Higher, Inability to urinate, Inability to have a bowel movement, Shortness of breath, Chest pain, Uncontrolled pain Allergies/Adverse Reactions: Allergies chlorthalidone Allergy (Verified 07/04/17 23:00) Unknown ramipril [From Altace] Allergy (Verified 07/04/17 23:00) Unknown sulfamethoxazole [From Bactrim] Allergy (Verified 06/21/17 08:58) Other trazodone Allergy (Verified 07/04/17 23:00) Unknown trimethoprim [From Bactrim] Allergy (Verified 06/21/17 08:58) Other prednisone Adverse Reaction (Verified 06/21/17 08:58) Swelling Medications to take at Discharge Ferrous Gluconate 240 mg PO BID 02/05/16 Folic Acid 1 mg PO DAILY@0800 02/05/16 Magnesium Oxide [Magnesium] 400 mg PO DAILY@0800 02/05/16 Apixaban [Eliquis] 2.5 mg PO BID 03/16/16 Cholecalciferol (Vitamin D3) [Vitamin D3] 1,000 unit PO DAILY@0800 10/14/16 Aspirin 81 mg PO DAILY@0800 07/04/17 Atorvastatin Calcium [Lipitor] 20 mg PO QHS 07/04/17 Cyanocobalamin [Vitamin B12] 1,000 mcg PO DAILY@0800 07/04/17 Gabapentin [Neurontin] 100 mg PO TIDCM 07/04/17 Metoprolol Succinate [Toprol Xl] 12.5 mg PO DAILY 07/04/17 Sodium Hypochlorite [Dakins Solution 0.25% (1/2 Strength)] 1 applic TOPICAL DAILY 07/04/17 Vit C/E/Zn/Coppr/Lutein/Zeaxan [Preservision Areds 2 Softgel] 2 each PO QHS 07/04/17 Zinc Sulfate (50mg elemental) [Zinc Sulfate] 220 mg PO DAILY 07/04/17 Piperacil/Tazobactam [Zosyn] 3.375 gm IV Q8 20 Days #60 ml 07/11/17 Vancomycin/0.9 % Sod Chloride [Vancomycin 1 G/100Ml-0.9% NaCl] 1 gm IV Q48H 20 Days #10 plast..bag 07/11/17 0.9% Saline Lock 10 ml IV UD PRN syringe 07/12/17 Acetaminophen [Tylenol] 1,000 mg PO Q8H PRN tablet 07/12/17 HydromorphONE [Dilaudid] 8 mg PO Q2H PRN #60 tablet 07/12/17 Lactobacillus Acidophilus [Acidophilus] 1 tab PO BID #60 tab 07/12/17 Melatonin 3 mg PO QHS #30 tab 07/12/17 Mineral Oil/Petrolatum,White [Eucerin] 1 applic TOPICAL BID PRN PRN jar 07/12/17 Polyethylene Glycol 3350 [Miralax] 17 gm PO DAILY #30 packet 07/12/17 Senna/Docusate Sodium [Senokot-S] 2 tab PO BID #120 tab 07/12/17 Sodium Chloride 0.65% [[place] Nasal [place]] 2 spray NASAL BID PRN PRN spray.btl 07/12/17 The following prescriptions were given: HydromorphONE [Dilaudid] 8 mg PO Q2H PRN #60 tablet PRN Reason: Severe Pain (6-10/10) Melatonin 3 mg PO QHS #30 tab Piperacil/Tazobactam [Zosyn] 3.375 gm IV Q8 20 Days #60 ml Polyethylene Glycol 3350 [Miralax] 17 gm PO DAILY #30 packet Vancomycin/0.9 % Sod Chloride [Vancomycin 1 G/100Ml-0.9% NaCl] 1 gm IV Q48H 20 Days #10 plast..bag Lactobacillus Acidophilus [Acidophilus] 1 tab PO BID #60 tab Senna/Docusate Sodium [Senokot-S] 2 tab PO BID #120 tab Primary Care Physician: Bernardo Lawson DO [Primary Care Provider] - Please follow up with your Primary Care Physician in: 1 week. Please Follow Up With: Irene Warner CNP When: 2 weeks. Please Follow Up With: Bre Hall When: gonzález grossman w/ Dr Humphrey Please Follow Up With: Romeo Humphrey When: gonzález nelson/ Bre Hall Please Follow Up With: Micky Mauro MD When: 2 weeks. Please Follow Up With: Mathieu Nolan When: 2 weeks. Please Follow Up With: [facility] MRI Proposed Discharge Date: 07/12/17
--- NOTE | 2017-07-12 08:18 | DCINST_ITS ---
- Discharge Diagnoses Current Active Problems: Current Active and Chronic Problems PSVT (paroxysmal supraventricular tachycardia) (Acute) Stage 4 decubitus ulcer (Chronic) Acute on chronic systolic heart failure (Acute) Pulmonary embolism (Chronic) Delirium (Acute) Lymphedema (Chronic) Chronic kidney disease (Chronic) Non-Hodgkin lymphoma (Chronic) You will use the following diet at home:: No restrictions, Regular Your food should be the consistency of: Regular Your liquids should be the consistency of: Regular/Thin Discharge Activity: Return to Normal Activity, Use Walker Weight Bearing Status: Weight bearing as tolerated Call your doctor if you observe: Fever of 101 or Higher, Inability to urinate, Inability to have a bowel movement, Shortness of breath, Chest pain, Uncontrolled pain Allergies/Adverse Reactions: Allergies chlorthalidone Allergy (Verified 07/04/17 23:00) Unknown ramipril [From Altace] Allergy (Verified 07/04/17 23:00) Unknown sulfamethoxazole [From Bactrim] Allergy (Verified 06/21/17 08:58) Other trazodone Allergy (Verified 07/04/17 23:00) Unknown trimethoprim [From Bactrim] Allergy (Verified 06/21/17 08:58) Other prednisone Adverse Reaction (Verified 06/21/17 08:58) Swelling Medications to take at Discharge Ferrous Gluconate 240 mg PO BID 02/05/16 Folic Acid 1 mg PO DAILY@0800 02/05/16 Magnesium Oxide [Magnesium] 400 mg PO DAILY@0800 02/05/16 Apixaban [Eliquis] 2.5 mg PO BID 03/16/16 Cholecalciferol (Vitamin D3) [Vitamin D3] 1,000 unit PO DAILY@0800 10/14/16 Aspirin 81 mg PO DAILY@0800 07/04/17 Atorvastatin Calcium [Lipitor] 20 mg PO QHS 07/04/17 Cyanocobalamin [Vitamin B12] 1,000 mcg PO DAILY@0800 07/04/17 Gabapentin [Neurontin] 100 mg PO TIDCM 07/04/17 Metoprolol Succinate [Toprol Xl] 12.5 mg PO DAILY 07/04/17 Sodium Hypochlorite [Dakins Solution 0.25% (1/2 Strength)] 1 applic TOPICAL DAILY 07/04/17 Vit C/E/Zn/Coppr/Lutein/Zeaxan [Preservision Areds 2 Softgel] 2 each PO QHS 05/23 Zinc Sulfate (50mg elemental) [Zinc Sulfate] 220 mg PO DAILY 07/04/17 Piperacil/Tazobactam [Zosyn] 3.375 gm IV Q8 20 Days #60 ml 07/11/17 Vancomycin/0.9 % Sod Chloride [Vancomycin 1 G/100Ml-0.9% NaCl] 1 gm IV Q48H 20 Days #10 plast..bag 07/11/17 0.9% Saline Lock 10 ml IV UD PRN syringe 07/12/17 Acetaminophen [Tylenol] 1,000 mg PO Q8H PRN tablet 07/12/17 HydromorphONE [Dilaudid] 8 mg PO Q2H PRN #60 tablet 07/12/17 Lactobacillus Acidophilus [Acidophilus] 1 tab PO BID #60 tab 07/12/17 Melatonin 3 mg PO QHS #30 tab 07/12/17 Mineral Oil/Petrolatum,White [Eucerin] 1 applic TOPICAL BID PRN PRN jar Polyethylene Glycol 3350 [Miralax] 17 gm PO DAILY #30 packet 07/12/17 Senna/Docusate Sodium [Senokot-S] 2 tab PO BID #120 tab 07/12/17 Sodium Chloride 0.65% [[place] Nasal [place]] 2 spray NASAL BID PRN PRN spray.btl 07/12/17 The following prescriptions were given: HydromorphONE [Dilaudid] 8 mg PO Q2H PRN #60 tablet PRN Reason: Severe Pain (6-10/10) Melatonin 3 mg PO QHS #30 tab Piperacil/Tazobactam [Zosyn] 3.375 gm IV Q8 20 Days #60 ml Polyethylene Glycol 3350 [Miralax] 17 gm PO DAILY #30 packet Vancomycin/0.9 % Sod Chloride [Vancomycin 1 G/100Ml-0.9% NaCl] 1 gm IV Q48H 20 Days #10 plast..bag Lactobacillus Acidophilus [Acidophilus] 1 tab PO BID #60 tab Senna/Docusate Sodium [Senokot-S] 2 tab PO BID #120 tab Primary Care Physician: Bernardo Lawson DO [Primary Care Provider] - Please follow up with your Primary Care Physician in: 1 week. Please Follow Up With: Irene Warner CNP When: 2 weeks. Please Follow Up With: Bre Hall When: gonzález grossman w/ Dr Humphrey Please Follow Up With: Romeo Humphrey When: gonzález nelson/ Bre Hall Please Follow Up With: Micky Mauro MD When: 2 weeks. Please Follow Up With: Mathieu Nolan When: 2 weeks. Please Follow Up With: [facility] Proposed Discharge Date: 07/12/17
--- NOTE | 2017-07-12 08:20 | HHNOTE_ITS ---
Home Health Note - Plan Overview of reason of hospitalization: The patient is a 72 year old Male with below past medical history hospitalized for sepsis, secondary to back wound, epidural abscess, complicated by PSVT requiring successful cardioversion, NSTEMI secondary to demand ischemia, transferred to [facility] for wound care, admitted to TCU for rehabilitation, strengthening, wound care, intravenous antibiotics, prior to discharge home. [] Discharge home with spouse, home health along with IV therapy, wound care. Home health ordered. Problems: Patient was seen for PSVT (paroxysmal supraventricular tachycardia) (Acute) Stage 4 decubitus ulcer (Chronic) Acute on chronic systolic heart failure (Acute) Pulmonary embolism (Chronic) Delirium (Acute) Lymphedema (Chronic) Chronic kidney disease (Chronic) Non-Hodgkin lymphoma (Chronic) Complete List of Medical Problems PSVT (paroxysmal supraventricular tachycardia) (Acute) Stage 4 decubitus ulcer (Chronic) Acute on chronic systolic heart failure (Acute) Pulmonary embolism (Chronic) Delirium (Acute) Lymphedema (Chronic) Chronic kidney disease (Chronic) Non-Hodgkin lymphoma (Chronic) Epidural abscess (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) Altered mental status, unspecified (Acute) A-fib (Acute) Sepsis (Acute) Severe sepsis (Acute) wound sepsis of previous wound (Acute) Bacteremia (Acute) Right hip pain (Acute) Open wound of lower back (Chronic) Nonhealing surgical wound (Acute) Chronic ulcer of right leg with fat layer exposed (Chronic) Lumbar disc disease (Chronic) Edema of both legs (Chronic) Leg swelling (Chronic) History of diverticulitis (Chronic) Hyperlipidemia (Chronic) Back pain at L4-L5 level (Chronic) History of non-Hodgkin's lymphoma (Chronic) Hypertension (Chronic) Shortness of breath (Chronic) Hypoxia (Chronic) History of atrial fibrillation (Chronic) Hemorrhage of tongue (Acute) Surgical wound dehiscence (Chronic) Renal insufficiency (Chronic) Soft tissue radionecrosis (Chronic) Ulcer of left heel and midfoot with fat layer exposed (Chronic) Decubitus ulcer, heel, right, unstageable (Chronic) Peripheral vascular disease (Chronic) Edema, lower extremity (Chronic) Malnutrition (Chronic) Pressure ulcer, back, lower (Chronic) Ulcer of right foot with fat layer exposed (Chronic) Decubitus ulcer of right foot, unstageable (Chronic) Peripheral vascular disease (Chronic) Ulcer of right lower extremity with fat layer exposed (Chronic) Tinea unguium (Chronic) Confusion (Acute) Generalized weakness (Chronic) Acute kidney injury superimposed on chronic kidney disease (Acute) - Requirements and Reasons Disciplines Needed/Ordered: Senior Care, Physical Therapy Reason for Disciplines: Disease Specific Monitoring/education, Medication Management/Knowledge Deficit, Wound Care, Infusion Therapy, Labs for Short Term Therapeutic Monitoring, Gait Training, Stair Training, Fall Prevention, Home Safety/Equipment Instruction, Balance and/or Posture Training, Transfer Training Related To: Limited/Poor Endurance, Shortness of Breath with Activity, Physical Impairments, Unsteady Gait/Balance, Fall Risk Patient is unable to leave the home: Without Aid of Supportive Devices (crutches , cane, wheelchair, walker), Without the assistance of another person - Additional Disciplines Additional Disciplines Needed/Ordered: Occupational Therapy
--- NOTE | 2017-07-12 08:20 | DS.PCM_ITS ---
Discharge Date and Diagnosis - Problem List Patient Problems: Active and Suspected Problems PSVT (paroxysmal supraventricular tachycardia) (Acute) Acute on chronic systolic heart failure (Acute) Delirium (Acute) Date of Admission: 07/08/17 Date of Discharge: 07/12/17 - Primary Discharge Diagnosis Active and Suspected Problems PSVT (paroxysmal supraventricular tachycardia) (Acute) Acute on chronic systolic heart failure (Acute) Delirium (Acute) - Secondary Discharge Diagnosis Chronic Problems Stage 4 decubitus ulcer (Chronic) Pulmonary embolism (Chronic) Lymphedema (Chronic) Chronic kidney disease (Chronic) Non-Hodgkin lymphoma (Chronic) 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 radiation lumbar back for treatment of lymphoma 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) nonhealing ulcer lumbar back area Open wound of lower back (Chronic) with muscle and bone exposed s/p surgical debridement of abscess s/p lumbar spine surgery Chronic ulcer of right leg with fat layer exposed (Chronic) Lumbar disc disease (Chronic) Edema of both legs (Chronic) Leg swelling (Chronic) History of diverticulitis (Chronic) Hyperlipidemia (Chronic) Back pain at L4-L5 level (Chronic) History of non-Hodgkin's lymphoma (Chronic) Hypertension (Chronic) Shortness of breath (Chronic) Hypoxia (Chronic) History of atrial fibrillation (Chronic) Surgical wound dehiscence (Chronic) Renal insufficiency (Chronic) Soft tissue radionecrosis (Chronic) Ulcer of left heel and midfoot with fat layer exposed (Chronic) Decubitus ulcer, heel, right, unstageable (Chronic) Peripheral vascular disease (Chronic) Edema, lower extremity (Chronic) Malnutrition (Chronic) Pressure ulcer, back, lower (Chronic) Ulcer of right foot with fat layer exposed (Chronic) Decubitus ulcer of right foot, unstageable (Chronic) Peripheral vascular disease (Chronic) Ulcer of right lower extremity with fat layer exposed (Chronic) Tinea unguium (Chronic) Generalized weakness (Chronic) Hospital Course and Treatment Imaging Results: 07/05/17 00:34 Diet: Regular Diet Is pt able to select menu?: Yes Labs (Last 48 Hours) 07/10/17 07/11/17 13:55 05:30 Sodium 134 L Potassium 4.3 Chloride 102 Carbon Dioxide 25.0 Anion Gap 7 BUN 53 H Creatinine 2.31 H Estim Creat Clear Calc 27.55 Est GFR (MDRD) Af Amer 36 L Est GFR (MDRD) Non-Af 30 L BUN/Creatinine Ratio 22.9 H Glucose 89 Calcium 8.9 Random Vancomycin 19.2 H Consultations 07/05/17 Consult: Onc/Wound/electrical and instrumentation mechanic Routine Comment: Extensive abscess to lumbar, pres injury buttocks Operations: None Procedures: None Summary of Care Provided: The patient is a 72 year old Male with below past medical history hospitalized for sepsis, secondary to back wound, epidural abscess, complicated by PSVT requiring successful cardioversion, NSTEMI secondary to demand ischemia, transferred to [facility] for wound care, admitted to TCU for rehabilitation, strengthening, wound care, intravenous antibiotics, prior to discharge home. [] Discharge home with spouse, home health along with IV therapy, wound care. Home health ordered. Discharge Diet: No Restrictions Discharge Activity: Return to Normal Activity, Use Walker Weight Bearing Status: Weight bearing as tolerated Call your doctor if you observe: Fever of 101 or Higher, Inability to urinate, Inability to have a bowel movement, Shortness of breath, Chest pain, Uncontrolled pain Home Medications: Medications to take at Discharge Ferrous Gluconate 240 mg PO BID 02/05/16 Folic Acid 1 mg PO DAILY@0800 02/05/16 Magnesium Oxide [Magnesium] 400 mg PO DAILY@0800 02/05/16 Apixaban [Eliquis] 2.5 mg PO BID 03/16/16 Cholecalciferol (Vitamin D3) [Vitamin D3] 1,000 unit PO DAILY@0800 10/14/16 Aspirin 81 mg PO DAILY@0800 07/04/17 Atorvastatin Calcium [Lipitor] 20 mg PO QHS 07/04/17 Cyanocobalamin [Vitamin B12] 1,000 mcg PO DAILY@0800 07/04/17 Gabapentin [Neurontin] 100 mg PO TIDCM 07/04/17 Metoprolol Succinate [Toprol Xl] 12.5 mg PO DAILY 07/04/17 Sodium Hypochlorite [Dakins Solution 0.25% (1/2 Strength)] 1 applic TOPICAL DAILY 07/04/17 Vit C/E/Zn/Coppr/Lutein/Zeaxan [Preservision Areds 2 Softgel] 2 each PO QHS 05/23 Zinc Sulfate (50mg elemental) [Zinc Sulfate] 220 mg PO DAILY 07/04/17 Piperacil/Tazobactam [Zosyn] 3.375 gm IV Q8 20 Days #60 ml 07/11/17 Vancomycin/0.9 % Sod Chloride [Vancomycin 1 G/100Ml-0.9% NaCl] 1 gm IV Q48H 20 Days #10 plast..bag 07/11/17 0.9% Saline Lock 10 ml IV UD PRN syringe 07/12/17 Acetaminophen [Tylenol] 1,000 mg PO Q8H PRN tablet 07/12/17 HydromorphONE [Dilaudid] 8 mg PO Q2H PRN #60 tablet 07/12/17 Lactobacillus Acidophilus [Acidophilus] 1 tab PO BID #60 tab 07/12/17 Melatonin 3 mg PO QHS #30 tab 07/12/17 Mineral Oil/Petrolatum,White [Eucerin] 1 applic TOPICAL BID PRN PRN jar Polyethylene Glycol 3350 [Miralax] 17 gm PO DAILY #30 packet 07/12/17 Senna/Docusate Sodium [Senokot-S] 2 tab PO BID #120 tab 07/12/17 Sodium Chloride 0.65% [Boundary Nasal [place]] 2 spray NASAL BID PRN PRN spray.btl 07/12/17 Following Prescrptions Were Given to Patient: HydromorphONE [Dilaudid] 8 mg PO Q2H PRN #60 tablet PRN Reason: Severe Pain (6-10/10) Melatonin 3 mg PO QHS #30 tab Piperacil/Tazobactam [Zosyn] 3.375 gm IV Q8 20 Days #60 ml Polyethylene Glycol 3350 [Miralax] 17 gm PO DAILY #30 packet Vancomycin/0.9 % Sod Chloride [Vancomycin 1 G/100Ml-0.9% NaCl] 1 gm IV Q48H 20 Days #10 plast..bag Lactobacillus Acidophilus [Acidophilus] 1 tab PO BID #60 tab Senna/Docusate Sodium [Senokot-S] 2 tab PO BID #120 tab Primary Care Physician: Bernardo Lawson DO [Primary Care Provider] - Please follow up with your Primary Care Physician in: 1 week. Please Follow Up With: Irene Warner CNP When: 2 weeks. Please Follow Up With: Bre Hall When: gonzález nelson/ Dr Humphrey Please Follow Up With: Romeo Humphrey When: combo appt w/ Bre Hall Please Follow Up With: Micky Mauro MD When: 2 weeks. Please Follow Up With: Mathieu Nolan When: 2 weeks. Please Follow Up With: [facility] FOR MRI Disposition: Home with Home Health Minutes spent on discharge:: 35 Patient Condition:: Poor Meaningful Use Info Meaningful Use Diagnoses (Choose all that apply): None applicable
[2017-07-12] MEDS: Cyanocobalamin 500 MCG Tablet 1000 MCG PO (09:04)
[2017-07-12] MEDS: Multivitamins,Ther W-Minerals Tablet 1 TABLET PO (09:04)
[2017-07-12] MEDS: Magnesium Oxide 400 MG Tablet PO (09:04)
[2017-07-12] MEDS: Folic Acid 1 MG Tablet PO (09:05)
[2017-07-12] MEDS: Iron Polysaccharide Complex 150 MG CAPSULE PO (09:05)
[2017-07-12] MEDS: Aspirin 81 MG TAB.CHEW PO (09:05)
--- NOTE | 2017-07-12 09:32 | NURSING ---
wound photo: mid lower back
[2017-07-12 11:36] LABS: Anion Gap 8 (5-15); BUN 49 mg/dL (7-18); BUN/Creat Ratio 20.6 RATIO (10-20); Calcium,Total 8.7 mg/dL (8.5-10.1); Chloride 105 mmol/L (98-107); Creatinine, Serum 2.38 mg/dL (0.70-1.30); EST Glomerular Filtration Rate 29 mL/min (>60); Est Glom Filt Rate - Afr Amer 35 mL/min (>60); Estimated Creatinine Clearance 26.74 ml/min; Glucose 134 mg/dL (74-106); Potassium 3.9 mmol/L (3.5-5.1); Sodium Level 136 mmol/L (136-145)
[2017-07-12 14:03] VITALS: BP 160/66; PULSE 71; RESP 16; TEMP 36.5; O2SAT 94
--- NOTE | 2017-07-12 14:58 | PHA.PHARE_ITS ---
Consult Pharmacy has been consulted to manage selected antiobiotic: Vancomycin Type of Consult: Follow-up Suspected Infection: Skin/Soft tissue Prior Doses of Antibiotics Received/Current Regimen: 07/08/17: Vancomycin 1g IV x1 --> admin 07/08/17 @1400 07/10/17: Vancomycin 1g IV x1 --> admin 07/10/17 @1809 Labs: Sodium 136 mmol/L (136-145) 07/12/17 11:00 Potassium 3.9 mmol/L (3.5-5.1) 07/12/17 11:00 Chloride 105 mmol/L (98-107) 07/12/17 11:00 Carbon Dioxide 23.0 mmol/L (21.0-32.0) 07/12/17 11:00 Anion Gap 8 (5-15) 07/12/17 11:00 BUN 49 mg/dL (7-18) H 07/12/17 11:00 Creatinine 2.38 mg/dL (0.70-1.30) H 07/12/17 11:00 Est GFR (MDRD) Af Amer 35 mL/min (>60) L 07/12/17 11:00 Est GFR (MDRD) Non-Af 29 mL/min (>60) L 07/12/17 11:00 BUN/Creatinine Ratio 20.6 RATIO (10-20) H 07/12/17 11:00 Glucose 134 mg/dL (74-106) H 07/12/17 11:00 Random Vancomycin 20.0 ug/mL (0.0-15.0) H 07/12/17 11:00 Microbiology: Microbiology 07/05/17 17:35 Urine, Clean Catch Urine Culture - Final Culture exhibits no growth. Weight used for dosin.25 kg Goal Trough: 15-20 mcg/mL Pharmacy Plan for Drug Dosing: Pharmacy Service will continue to monitor and adjust dosing as required. Pharmacy to manage vancomycin per consult for the treatment of MRSA (+) Stage IV lumbar ulcer. The patient has been gettin gvancomycin dosing by levels. Patient to be discharged home today with home healthcare per note. A random vanco trough was drawn 41hrs since last dose which resulted in a value of 20. Given this information, pharmacy recommends the following dosing regimen/follow- up upon discharge: 1. Vancomycin 1g IV Q48hrs to start 07/12/17 @1800 2. Vancomycin trough to be drawn with every 3rd dose given (every 6 days) 3. BMP to be measured with vancomycin trough lab draws (every 6 days) to monitor renal function Discharge dosing scheme was discussed with ID physician prior to discharge, orders were placed.
--- NOTE | 2017-07-17 13:18 | MDS.RN ---
Information for the mds was obtained from review of the clinical record, interview of resident, staff, and direct observation of resident's care.
== END 2017-07-12 14:05 | disposition home health service (06) | DRG 871 ==
PROVIDERS: Admitting Provider Family Medicine Geriatric Medicine; Family Provider Family Medicine; PCP Family Medicine; Visit Provider Family Medicine Geriatric Medicine
DX: A41.9 Sepsis, unspecified organism (principal); I21.A1 Myocardial infarction type 2; G06.2 Extradural and subdural abscess, unspecified; I50.23 Acute on chronic systolic (congestive) heart failure; L89.104 Pressure ulcer of unspecified part of back, stage 4; L97.422 Non-pressure chronic ulcer of left heel and midfoot with fat layer exposed; C85.90 Non-Hodgkin lymphoma, unspecified, unspecified site; I48.0 Paroxysmal atrial fibrillation; I47.1 Supraventricular tachycardia; I13.0 Hypertensive heart and chronic kidney disease with heart failure and stage 1 through stage 4 chronic kidney disease, or unspecified chronic kidney disease; J44.9 Chronic obstructive pulmonary disease, unspecified; E78.5 Hyperlipidemia, unspecified; D50.9 Iron deficiency anemia, unspecified; Z86.711 Personal history of pulmonary embolism; N18.9 Chronic kidney disease, unspecified; I73.9 Peripheral vascular disease, unspecified; B35.1 Tinea unguium; L89.890 Pressure ulcer of other site, unstageable; Z79.899 Other long term (current) drug therapy; Z79.82 Long term (current) use of aspirin; Z79.01 Long term (current) use of anticoagulants; Z79.51 Long term (current) use of inhaled steroids; Z87.891 Personal history of nicotine dependence; Z86.14 Personal history of Methicillin resistant Staphylococcus aureus infection; I89.0 Lymphedema, not elsewhere classified
CPT/HCPCS: 36415; 80048; 80076; 80202; 81001; 85025; 85652; 86140; 87086; 97110; 97116; 97162; 97165; 97530; 97535; 97802; J0885; J7050; A4216

== ENCOUNTER → 2017-07-16 18:55 | Outpatient (CLI) | payer MEDICARE, OTHER, SELFPAY ==
[2015-10-31 10:00] VITALS: BMI 34.9
[2017-07-16 19:15] LABS: Hematocrit 23.5 % (40-54); Hemoglobin 7.5 g/dl (13.0-16.5); Mean Corp Hgb Conc 31.9 g/gl (32-36); Mean Corpuscular Hgb 31.4 pg (27.0-32.0); Mean Corpuscular Volume 98.3 fL (80-94); Platelet Count 469 K/mm3 (150-450); RBC Distribution Width SD 56.7 fl (35.1-43.9); Red Blood Count 2.39 M/mm3 (4.6-6.2); Scan Indicated on CBC? Y/N NO; White Blood Count 6.1 K/mm3 (4.4-11.0)
[2017-07-16 19:21] LABS: Anion Gap 10 (5-15); BUN 37 mg/dL (7-18); BUN/Creat Ratio 14.9 RATIO (10-20); Calcium,Total 8.6 mg/dL (8.5-10.1); Chloride 108 mmol/L (98-107); Creatinine, Serum 2.49 mg/dL (0.70-1.30); EST Glomerular Filtration Rate 27 mL/min (>60); Est Glom Filt Rate - Afr Amer 33 mL/min (>60); Glucose 80 mg/dL (74-106); Potassium 3.8 mmol/L (3.5-5.1); Sodium Level 140 mmol/L (136-145)
[2017-07-16 19:24] LABS: Vancomycin, Trough Level 21.5 ug/mL (5.0-15.0)
[2017-07-16 20:04] LABS: Erythrocyte Sedimentation Rate 95 mm/hr (0-20)
== END ==
PROVIDERS: Family Provider Family Medicine; PCP Family Medicine; Visit Provider Internal Medicine Infectious Disease
DX: G06.2 Extradural and subdural abscess, unspecified (principal)
CPT/HCPCS: 80048; 80202; 85027; 85652

== ENCOUNTER 2017-07-17 10:55 | Emergency (ER) | payer MEDICARE, OTHER, SELFPAY ==
[2015-10-31 10:00] VITALS: BMI 34.9
[2017-07-17 10:58] VITALS: BP 139/78; PULSE 70; RESP 14; TEMP 37.1; O2SAT 99; BMI 25.7
--- NOTE | 2017-07-17 11:32 | ED.DCSUM_ITS ---
- ER Visit Summary Date of Service: 07/17/17 Chief Complaint: Diarrhea History of Present Illness: The patient is a 72 M chronic history of prior lower back surgery for discectomy. He had a problem with healing wound from that surgery. Developed a infection he was seen by a plastic surgeon and treated at [facility]. 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 He was admitted to [facility] within the last week and discharged. Currently is on PICC line IV antibiotic therapy vancomycin and Zosyn. In the last 2-3 days developed significant watery diarrhea. He denies any vomiting. Denies any fever. He spoke to his ID physician and was sent into the ER. Physical Examination: Well-appearing older male. Vital signs are stable afebrile. He does not look septic or toxic. Is no acute distress. H EENT exam unremarkable. Neck nontender lungs clear to auscultation bilaterally. Heart regular rate and rhythm no murmur. Abdomen soft nontender. Nondistended normal bowel sounds no peritoneal signs. Extremities moving all 4. Neurovascular intact. Back exam is back exam is good he is a wound VAC on the lumbar spine area. It looks dry and clean. I did not take the wound VAC off. There is no surrounding cellulitis. Neurologically he is awake and alert with no focal motor deficits. Test Results: CBC shows a normal white count of 7. H&H of 7 and 23 which is his baseline chronic anemia. Electrolytes are unremarkable other than a BUN of 33 creatinine 2.4 which again is his baseline chronic renal insufficiency. Normal anion gap. C. difficile was negative. Emergency Department Course and Treatment: Patient's diarrhea C. difficile will be sent. A CBC chemistry. He will be treated with a liter normal saline. Treatment Plan: Repeat exam at 1512 patient is doing well. Remember all the test results. He will be discharged to home. Use Imodium for the diarrhea. Follow-up with his primary care physician if not improving he may need repeat stool testing to rule out C. difficile even though was negative today. Disposition: Discharge Impression: Acute diarrhea secondary to antibiotic therapy for a chronic spine wound. Dehydration Chronic anemia and chronic renal insufficiency This note was generated with [employer] software. It may contain incorrect words, spelling, and punctuation that were not noted in review of the chart prior to signing ED Disposition - Plan for ED Patient: Chief Complaint: Diarrhea Referrals: Bernardo Lawson DO [Primary Care Provider] -
[2017-07-17 12:04] LABS: Absolute Lymphocyte Count 1.35 X10^3/ul (0.83-4.51); Absolute Neutrophil Count 2.2 X10^3/uL (2.0-7.7); Basophil# 0.07 X10^3/uL; Differential Indicated SCAN CRITERIA MET; Eosinophil# 2.45 X10^3/uL; Hematocrit 23.8 % (40-54); Hemoglobin 7.6 g/dl (13.0-16.5); Lymphocyte # 1.35 X10^3/ul (4.0); Lymphocyte % 19.3 % (19-41); Mean Corp Hgb Conc 31.9 g/gl (32-36); Mean Corpuscular Hgb 31.9 pg (27.0-32.0); Mean Platelet Vol. 8.6 fl (6.2-12.0); Monocyte# 0.97 X10^3/uL; Monocyte% 13.8 % (0-10); Neutrophil # 2.16 X10^3/uL (2.7-7.7); Neutrophil % 30.8 % (47-70); POSITIVE COUNT NO; POSITIVE DIFFERENTIAL YES; POSITIVE MORPHOLOGY NO; Platelet Count 478 K/mm3 (150-450); RBC Distribution Width CV 16.2 % (11.6-14.6); RBC Distribution Width SD 55.1 fl (35.1-43.9); Red Blood Count 2.38 M/mm3 (4.6-6.2)
[2017-07-17 12:10] LABS: Anion Gap 11 (5-15); BUN 33 mg/dL (7-18); BUN/Creat Ratio 13.7 RATIO (10-20); Calcium,Total 8.6 mg/dL (8.5-10.1); Chloride 107 mmol/L (98-107); Creatinine, Serum 2.41 mg/dL (0.70-1.30); EST Glomerular Filtration Rate 28 mL/min (>60); Est Glom Filt Rate - Afr Amer 34 mL/min (>60); Estimated Creatinine Clearance 26.41 ml/min; Glucose 80 mg/dL (74-106); Potassium 4.1 mmol/L (3.5-5.1); Sodium Level 140 mmol/L (136-145)
[2017-07-17] MEDS: 0.9% Normal Saline 1,000 ML 1000 ML IV (12:13)
[2017-07-17 12:20] LABS: Differential Comment SCANNED; Hypochromasia 2+; Platelet Estimate ADEQUATE (ADEQ)
[2017-07-17 13:00] VITALS: BP 124/61; PULSE 72; RESP 18; O2SAT 98
--- NOTE | 2017-07-17 15:14 | ED.DEP ---
ED Disposition - Plan for ED Patient: Disposition: Home or Assisted Living Chief Complaint: Diarrhea Instructions: Dehydration Referrals: Bernardo Lawson DO [Primary Care Provider] - 3-5 Days if not improving Additional Instructions: Plenty fluids and rest. Imodium as needed for diarrhea. Follow-up your primary care physician if not improving you may need further testing if the diarrhea does not get better. Return to the ER if you are feeling worse.
[2017-07-17 15:37] VITALS: BP 130/77; BP 133/77; PULSE 77; RESP 16; O2SAT 99
[2017-07-18 14:54] LABS: Pathologist Review Reviewed
== END 2017-07-17 15:41 | disposition home or self-care (01) ==
PROVIDERS: Emergency Provider Emergency Medicine; Family Provider Family Medicine; PCP Family Medicine
DX: K52.1 Toxic gastroenteritis and colitis (principal); T36.95XA Adverse effect of unspecified systemic antibiotic, initial encounter; Y92.9 Unspecified place or not applicable; E86.0 Dehydration; N18.9 Chronic kidney disease, unspecified; D64.9 Anemia, unspecified; S31.000A Unspecified open wound of lower back and pelvis without penetration into retroperitoneum, initial encounter; X58.XXXA Exposure to other specified factors, initial encounter; Y93.9 Activity, unspecified; Y99.9 Unspecified external cause status; Z79.01 Long term (current) use of anticoagulants; Z79.82 Long term (current) use of aspirin; Z79.899 Other long term (current) drug therapy; Z87.891 Personal history of nicotine dependence
CPT/HCPCS: 80048; 85025; 87493; 96360; 96361; 99282; J7030; A4216

== ENCOUNTER → 2017-07-22 22:21 | Outpatient (CLI) | payer MEDICARE, OTHER, SELFPAY ==
[2015-10-31 10:00] VITALS: BMI 34.9
[2017-07-22 22:38] LABS: Hematocrit 23.7 % (40-54); Hemoglobin 7.4 g/dl (13.0-16.5); Mean Corp Hgb Conc 31.2 g/gl (32-36); Mean Corpuscular Hgb 31.4 pg (27.0-32.0); Mean Corpuscular Volume 100.4 fL (80-94); Platelet Count 367 K/mm3 (150-450); RBC Distribution Width CV 16.9 % (11.6-14.6); RBC Distribution Width SD 61.3 fl (35.1-43.9); Red Blood Count 2.36 M/mm3 (4.6-6.2); White Blood Count 8.2 K/mm3 (4.4-11.0)
[2017-07-22 22:40] LABS: Scan Indicated on CBC? Y/N NO
[2017-07-22 22:53] LABS: Anion Gap 13 (5-15); BUN 29 mg/dL (7-18); Calcium,Total 8.2 mg/dL (8.5-10.1); Chloride 104 mmol/L (98-107); Creatinine, Serum 2.64 mg/dL (0.70-1.30); EST Glomerular Filtration Rate 25 mL/min (>60); Est Glom Filt Rate - Afr Amer 31 mL/min (>60); Glucose 79 mg/dL (74-106); Potassium 3.9 mmol/L (3.5-5.1); Sodium Level 141 mmol/L (136-145)
[2017-07-22 22:57] LABS: Vancomycin, Trough Level 16.5 ug/mL (5.0-15.0)
[2017-07-22 23:09] LABS: Erythrocyte Sedimentation Rate 66 mm/hr (0-20)
== END ==
PROVIDERS: PCP Family Medicine; Visit Provider Internal Medicine Infectious Disease
DX: G06.2 Extradural and subdural abscess, unspecified (principal)
CPT/HCPCS: 80048; 80202; 85027; 85652

== ENCOUNTER → 2017-07-23 12:52 | Outpatient (CLI) | payer MEDICARE, OTHER, SELFPAY ==
[2015-10-31 10:00] VITALS: BMI 34.9
[2017-07-23 13:09] VITALS: BP 128/70; PULSE 77; RESP 18; TEMP 36.6; BMI 25.5
== END ==
PROVIDERS: Family Provider Family Medicine; PCP Family Medicine; Visit Provider Internal Medicine Nephrology
DX: N18.3 Chronic kidney disease, stage 3 (moderate) (principal); D63.1 Anemia in chronic kidney disease
CPT/HCPCS: 96372; J0885

== ENCOUNTER → 2017-07-24 12:32 | Outpatient (CLI) | payer MEDICARE, OTHER, SELFPAY ==
[2015-10-31 10:00] VITALS: BMI 34.9
--- NOTE | 2017-07-24 12:45 | MRI_ITS ---
STUDY: MRI LUMBAR SPINE WITHOUT CONTRAST REASON FOR EXAM: Male, 72 years old. Epidural abscess TECHNIQUE: Standardized fat and water weighted pulse sequences were obtained in the sagittal and axial planes. COMPARISON: June 25, 2017 FINDINGS: The previously described fluid collection in the right dorsal and lateral epidural space at the L5-S1 level has resolved. No significant residual mass effect on the thecal sac at that level. The transiting nerve roots at that level have a normal appearance. Stable remote L5 compression deformity with changes of remote osteonecrosis. No acute compression fractures. Conus medullaris terminates at the L1 level and is unremarkable. No new epidural collections are seen on this noncontrast study. Stable irregularities and heterogeneous signal abnormalities involving the L2, L3, and L4 spinous processes. Bilateral L4-5 laminectomies been performed. Multiple postoperative changes in the posterior subcutaneous tissues with wound packing in place. No pseudomeningoceles are seen. Stable disc disease. Severe foraminal stenosis on the right at the L5-S1 level. Renal cysts. MRI/Spine Lumbar (Routine) IMPRESSION: The previously described fluid collection in the right dorsal epidural space at the L5-S1 level has resolved. No new epidural collections are seen on this noncontrast study. Stable irregularities and heterogeneous signal abnormalities involving the L2, L3, and L4 spinous processes. Osteomyelitis could have this MRI appearance. Multiple postoperative changes as described. Stable disc disease. Severe foraminal stenosis on the right at the L5-S1 level. Electronically Signed: Juan Antonio De Leon MD at 4:44 EDT Tel , Service support ,
== END ==
PROVIDERS: Family Provider Family Medicine; PCP Family Medicine; Visit Provider Internal Medicine Infectious Disease
DX: G06.1 Intraspinal abscess and granuloma (principal); R58 Hemorrhage, not elsewhere classified; I48.91 Unspecified atrial fibrillation; Z79.82 Long term (current) use of aspirin; Z79.01 Long term (current) use of anticoagulants; Z79.899 Other long term (current) drug therapy; Z85.72 Personal history of non-Hodgkin lymphomas
CPT/HCPCS: 72148; 99282

== ENCOUNTER 2017-07-24 18:00 | Emergency (ER) | payer MEDICARE, OTHER, SELFPAY ==
[2015-10-31 10:00] VITALS: BMI 34.9
[2017-07-24 18:01] VITALS: BP 159/70; PULSE 74; RESP 18; TEMP 36.8; O2SAT 98; BMI 25.4
--- NOTE | 2017-07-24 18:58 | ED.RN ---
dressing appears to be dry with no bleeding noted at this time.
--- NOTE | 2017-07-24 19:00 | ED.DCSUM_ITS ---
- ER Visit Summary Date of Service: 07/24/17 Chief Complaint: Epidural abscess wound History of Present Illness: The patient is a 72 M presents with bleeding from a chronic wound of the low back. Patient had a epidural abscess that was surgically cared for at [facility]. He has been home on vancomycin and a wound VAC. He is on Eliquis. The patient had home health nurse come out today to change the dressing. They noted bleeding from the wound. They are unable to get this to stop. Advised the patient to come to the emergency room. Physical Examination: Afebrile vital signs are stable Gen: Well-nourished well-developed Head: Normocephalic atraumatic Eyes: Perrl EOMI ENT: TMs clear no rhinorrhea moist mucous membranes Neck: Supple no lymphadenopathy no JVD nontender CVS: Regular rate rhythm no murmurs normal S1-S2 Respiratory: No distress clear to auscultation bilaterally chest nontender Abdomen: Soft nontender nondistended normal bowel sounds no masses Back: There is a very large lumbar midline chronic wound. The inner tissue is pink. There is fresh clot around most of the wound. Approximately an inch above the lower end of the wound there is a pinpoint area that is actively oozing dark red blood. Extremity: Nontender no edema Skin: Normal color no rash Neuro: alert orientated ?3 CN II-XII intact normal strength sensation reflexes gait cerebellar Psych: Normal affect normal mood Emergency Department Course and Treatment: Gelfoam was placed over the area of bleeding. Followed by a compressive dressing of gauze ABD and tape. He was observed. Impression: 1. Wound bleeding This note was generated with [employer] dictation software. It may contain incorrect words, spelling, and punctuation that were not noted in review of the chart prior to signing ED Disposition - Plan for ED Patient: Chief Complaint: Wound Check Instructions: ED Wound Check Post Op Bleeding Referrals: Bernardo Lawson DO [Primary Care Provider] - Monica Wick DO [STAFF PHYSICIAN] - ( SCHEDULED)
--- NOTE | 2017-07-24 19:33 | NURSING ---
checked the wound again to see if there was bleeding. dressing looks clean and dry.
[2017-07-24 19:46] VITALS: RESP 18
--- NOTE | 2017-07-24 19:46 | NURSING ---
let the pt know per Dr. Arnett that he does not want the wound vac put back on tomorrow, want to see what they say at his wound gary on saturday and see how they want to proceed.
== END 2017-07-24 19:47 | disposition home or self-care (01) ==
PROVIDERS: Emergency Provider Emergency Medicine; Family Provider Family Medicine; PCP Family Medicine
DX: R58 Hemorrhage, not elsewhere classified (principal); I48.91 Unspecified atrial fibrillation; Z79.82 Long term (current) use of aspirin; Z79.01 Long term (current) use of anticoagulants; Z79.899 Other long term (current) drug therapy; Z85.72 Personal history of non-Hodgkin lymphomas
CPT/HCPCS: 99282

== ENCOUNTER 2017-07-30 09:00 | Outpatient (RCR) | payer MEDICARE, OTHER, SELFPAY ==
[2015-10-31 10:00] VITALS: BMI 34.9
[2017-07-19 12:55] LABS: Anion Gap 11 (5-15); BUN 27 mg/dL (7-18); BUN/Creat Ratio 11.3 RATIO (10-20); Calcium,Total 8.9 mg/dL (8.5-10.1); Chloride 106 mmol/L (98-107); Creatinine, Serum 2.39 mg/dL (0.70-1.30); EST Glomerular Filtration Rate 29 mL/min (>60); Est Glom Filt Rate - Afr Amer 34 mL/min (>60); Glucose 77 mg/dL (74-106); Sodium Level 139 mmol/L (136-145)
[2017-07-19 12:58] LABS: Vancomycin, Trough Level 19.4 ug/mL (5.0-15.0)
[2017-07-30 19:13] LABS: Hematocrit 24.2 % (40-54); Hemoglobin 7.5 g/dl (13.0-16.5); Mean Corpuscular Hgb 31.6 pg (27.0-32.0); Mean Corpuscular Volume 102.1 fL (80-94); Mean Platelet Vol. 9.7 fl (6.2-12.0); Platelet Count 368 K/mm3 (150-450); RBC Distribution Width CV 17.1 % (11.6-14.6); RBC Distribution Width SD 62.6 fl (35.1-43.9); Red Blood Count 2.37 M/mm3 (4.6-6.2); White Blood Count 10.4 K/mm3 (4.4-11.0)
[2017-07-30 19:15] LABS: Scan Indicated on CBC? Y/N NO
[2017-07-30 19:22] LABS: Anion Gap 10 (5-15); BUN 34 mg/dL (7-18); BUN/Creat Ratio 11.8 RATIO (10-20); Calcium,Total 8.8 mg/dL (8.5-10.1); Chloride 107 mmol/L (98-107); Creatinine, Serum 2.87 mg/dL (0.70-1.30); EST Glomerular Filtration Rate 23 mL/min (>60); Est Glom Filt Rate - Afr Amer 28 mL/min (>60); Glucose 99 mg/dL (74-106); Potassium 3.6 mmol/L (3.5-5.1); Sodium Level 142 mmol/L (136-145)
[2017-07-30 19:27] LABS: Vancomycin, Trough Level 14.7 ug/mL (5.0-15.0)
[2017-07-30 19:55] LABS: Erythrocyte Sedimentation Rate 83 mm/hr (0-20)
== END 2017-08-03 23:59 ==
LOC: HHLAB 09:00
PROVIDERS: Family Provider Family Medicine; PCP Family Medicine; Visit Provider Internal Medicine Infectious Disease
DX: A41.9 Sepsis, unspecified organism (principal); I47.1 Supraventricular tachycardia; I21.4 Non-ST elevation (NSTEMI) myocardial infarction; I13.0 Hypertensive heart and chronic kidney disease with heart failure and stage 1 through stage 4 chronic kidney disease, or unspecified chronic kidney disease; I50.23 Acute on chronic systolic (congestive) heart failure; N18.9 Chronic kidney disease, unspecified
CPT/HCPCS: 80048; 80202; 85027; 85652

== ENCOUNTER 2017-08-02 13:00 | Outpatient (RCR) | payer MEDICARE, OTHER, SELFPAY ==
[2015-10-31 10:00] VITALS: BMI 34.9
[2017-07-04 00:34] VITALS: BP 126/65; PULSE 76; RESP 18; TEMP 36.3; BMI 56.5
[2017-07-19 13:47] VITALS: TEMP 36.7; BMI 56.5
--- NOTE | 2017-07-19 17:39 | HP.PCM_ITS ---
(1) Nonhealing surgical wound Status: Chronic Current Visit: Yes Qualifiers: Encounter type: subsequent encounter Qualified Code(s): T81.89XD - Other complications of procedures, not elsewhere classified, subsequent encounter Code(s): T81.89XA - Other complications of procedures, not elsewhere classified , initial encounter (2) Open wound of lower back Status: Chronic Current Visit: Yes Code(s): S31.000A - Unspecified open wound of lower back and pelvis without penetration into retroperitoneum, initial encounter (3) Osteomyelitis of lumbar spine Status: Chronic Current Visit: Yes Code(s): M46.26 - Osteomyelitis of vertebra, lumbar region (4) 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 Status: Chronic Current Visit: Yes Code(s): G06.1 - Intraspinal abscess and granuloma (5) Paroxysmal atrial fibrillation Status: Chronic Current Visit: No Code(s): I48.0 - Paroxysmal atrial fibrillation (6) Chronic kidney disease Status: Chronic Current Visit: No Code(s): N18.9 - Chronic kidney disease, unspecified History of Present Illness Date of Service: 07/19/17 Chief Complaint: Nonhealing surgical wound of lower back History of Wound: Cuong is a 71-year-old white male who presents for treatment of nonhealing surgical wound of his lower back s/p surgical debridement for an abscess s/p lumbar spine surgery. His original surgery on his lower back was approximately February 2016 and he has had multiple complications since that time. He underwent surgical debridement on 03/04/[address] Davila at [facility] in [place] and was discharged with a wound vac for healing by secondary intention with possible muscle flap closure in the future. He has been scheduled several times for muscle flap closure at [facility] over the last several months but each time his surgeon has felt that there is an infection and postponed surgery. He was discontinued off of the wound vac in May and was using wet to dry dressings in preparation for surgery and was being seen here for debridements until surgery until he was again hospitalized in June 21, 2017 for sepsis, A. fib and heart failure. He was found to have an epidural abscess and osteomyelitis of L5 and ultimately was transferred to [facility] as they felt he may need surgical debridement and drainage of the abscess. At [facility] testing was repeated and the abscess had shrunk in size. He was discharged on IV antibiotics of Zosyn and Vancomycin until 07/30/17. He was also restarted on the wound vac at 125 mm Hg. He is scheduled for a repeat MRI on 07/24/17 and if abscess is resolved then they will consider surgical wound closure with muscle flap again. He denies fever, chills, nausea, vomiting, redness. He is here with his today. 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 Wound debridement 03/04/2017, 05/14/2017 at [facility]> Allergies/Adverse Reactions: Allergies chlorthalidone Allergy (Verified 07/17/17 10:57) Unknown ramipril [From Altace] Allergy (Verified 07/17/17 10:57) Unknown sulfamethoxazole [From Bactrim] Allergy (Verified 07/17/17 10:57) Other trazodone Allergy (Verified 07/17/17 10:57) Unknown trimethoprim [From Bactrim] Allergy (Verified 07/17/17 10:57) Other prednisone Adverse Reaction (Verified 07/17/17 10:57) Swelling Home Medications: Ambulatory Orders Medication Instructions Recorded Ferrous Gluconate 240 mg PO BID 02/05/16 Folic Acid 1 mg PO DAILY@0800 02/05/16 Magnesium Oxide [Magnesium] 400 mg PO DAILY@0800 02/05/16 Apixaban [Eliquis] 2.5 mg PO BID 03/16/16 Cholecalciferol (Vitamin D3) 1,000 unit PO DAILY@0800 10/14/16 [Vitamin D3] Aspirin 81 mg PO DAILY@0800 07/04/17 Atorvastatin Calcium [Lipitor] 20 mg PO QHS 07/04/17 Cyanocobalamin [Vitamin B12] 1,000 mcg PO DAILY@0800 07/04/17 Gabapentin [Neurontin] 100 mg PO TIDCM 07/04/17 Metoprolol Succinate [Toprol Xl] 12.5 mg PO DAILY 07/04/17 Sodium Hypochlorite [Dakins 1 applic TOPICAL DAILY 07/04/17 Solution 0.25% (1/2 Strength)] Vit C/E/Zn/Coppr/Lutein/Zeaxan 2 ea PO QHS 07/04/17 [Preservision Areds 2 Softgel] Zinc Sulfate (50mg elemental) 220 mg PO DAILY 07/04/17 [Zinc Sulfate] Piperacil/Tazobactam [Zosyn] 3.375 gm IV Q8 20 Days #60 ml 07/11/17 Vancomycin/0.9 % Sod Chloride 1 gm IV Q48H 20 Days #10 plast..bag 07/11/17 [Vancomycin 1 G/100Ml-0.9% NaCl] 0.9% Saline Lock 10 ml IV UD PRN syringe 07/12/17 Acetaminophen [Tylenol] 1,000 mg PO Q8H PRN tab 07/12/17 HYDROmorphone tablet [Dilaudid] 8 mg PO Q2H PRN #60 tab 07/12/17 Lactobacillus Acidophilus 1 tab PO BID #60 tab 07/12/17 [Acidophilus] Melatonin 3 mg PO QHS #30 tab 07/12/17 Mineral Oil/Petrolatum,White 1 applic TOPICAL BID PRN PRN jar 07/12/17 [Eucerin] Polyethylene Glycol 3350 [Miralax] 17 gm PO DAILY #30 packet 07/12/17 Senna/Docusate Sodium [Senokot-S] 2 tab PO BID #120 tab 07/12/17 Sodium Chloride 0.65% [Deep [place] Nasal 2 spray NASAL BID PRN PRN 07/12/17 [place]] spray.btl - Family History Maternal Family History: Family History (Last Updated 07/17/17 @ 16:05 by Marzena Jackson) Father Diabetes Heart disease Mother Heart disease Heart Disease Paternal Family History: Family History (Last Updated 07/17/17 @ 16:05 by Marzena Jackson) Father Diabetes Heart disease Mother Heart disease Diabetes Lives: Spouse/ Significant Other Smoking Status: Former smoker Tobacco Use: Non-smoker Alcohol: Rare Drugs: None Review of Systems Constitutional: Denies: Chills, Fever, Weight Change Eyes: Denies: Pain, Vision Change HEENT: Denies: Difficulty Hearing, Difficulty Swallowing, Sinus Congestion Cardiovascular: Denies: Chest Pain, Palpitations Respiratory: Denies: Cough, Shortness of Breath Gastrointestinal: Denies: Diarrhea, Nausea, Vomiting Genitourinary: Denies: Dysuria, Hematuria Musculoskeletal: Reports: Back Pain Skin: Reports: Dryness, Wounds Endocrine: Denies: Heat/ Cold Intolerance, Polydipsia, Polyuria Hematologic/ Lymphatic: Denies: Easy Bruising, Easy Bleeding - Physical Exam Vital Signs Temp Pulse Resp BP 98.0 F 76 18 126/65 H 07/19/17 13:47 07/04/17 00:34 07/04/17 00:34 07/04/17 00:34 General: Alert, Oriented x3, Cooperative, No apparent distress HEENT: Atraumatic, Normocephalic Oral: Moist Mucosa Lungs: Clear to auscultation Cardiovascular: Regular rate, Regular Rhythm Abdomen: Soft, Non Tender Extremities: Edema Skin: Ulcer/ Wound Wound Measurements and Assessment WC - Nurse 1 - General Ulcer Measurement Start: 07/19/17 10:43 Freq: Status: Active Protocol: Activity Type Activity Date Activity User E-Sign Co-Sign Detail Recorded Client Recorded Date Recorded By Document 07/19/17 13:47 DV [id number] 07/19/17 14:00 DV 07/19/17 13:47 Wound Center Nurse 1 [Ulcer Assessment] #9 Lower Lumbar- Midline -Combined with other wound No -Current Size (cm) - Length 13.5 -Current Size (cm) - Width 4.4 -Current Size (cm) - Depth 1.0 -Total Square Cm 59.40 -Photo Taken Yes -Epithelialization Medium 34-66% -Tunneling No -Undermining/Tunneling Yes -Undermining/Tunneling Starts (O' 10 clock) -Undermining/Tunneling Ends (O'clock) 1 -Maximum Distance (cm) 1.6 -Circular Undermining No -Exudate Amt Large (67-100%) -Exudate Type Serosanguineous -Wound Margin Thickened & Rolled Under -Granulation Amt Medium (34-66%) -Granulation Quality Pale Evans -Slough/Fibrin Yes -Necrosis Amt Large (67-100%) -Necrotic Tissue Type Adherent Slough -Structure Exposed Tendon Fascia Muscle -Texture (Uma-wound Skin Appearance) Assessed Excoriation Localized Edema Scarring Rash -Moisture (Uma-wound Skin Appearance Assessed ) Dry/Scaly -Color (Uma-wound Skin Appearance) Assessed Erythema -Temperature (Uma-wound Skin No Abnormality Appearance) (Pt Warm) -Tenderness on Palpation (Uma-wound Yes Skin Appearance) -Ulcer Cleansing Wound Cleanser -Foul Odor after Cleansing No -Anesthetic Used 5% Lidocaine Gel WC - Nurse 2 - General Ulcer CM Notes Start: 07/19/17 10:43 Freq: Status: Active Protocol: Activity Type Activity Date Activity User E-Sign Co-Sign Detail Recorded Client Recorded Date Recorded By Document 07/19/17 14:30 [id number] 07/19/17 14:53 07/19/17 14:30 Wound Center Nurse 2 [Procedure/Treatment] -Time 14:31 -Correct Patient Yes -Correct Side, Site, Position Yes -Correct Procedure Yes -Procedure Performed Yes -Type of Procedure Debridement -Clinical Debridement Muscle -Post Debridement Size (cm) - Length 14.0 -Post Debridement Size (cm) - Width 4.9 -Post Debridement Size (cm) - Depth 1.0 -Total Square Cm 68.60 -Wound/Ulcer Outcome Not Healed -Ulcer Cleansing Rinsed/ Irrigated with Saline -Foul Odor after Cleansing No -Bioengineered Tissue No -Topical Lidocaine (%) 5 -Bleeding Controlled with Pressure -Treatment Response Procedure Tolerated Well [See Physician Procedure note for Specifics] Pain Scale: 0-10 Numeric [Pain] -Is Patient Pain Free? Yes Psych/Mental Status: Normal Affect, Appropriate Debridement Note Post-Debridement Measurements/Treatment WC - Nurse 2 - General Ulcer CM Notes Start: 07/19/17 10:43 Freq: Status: Active Protocol: Activity Type Activity Date Activity User E-Sign Co-Sign Detail Recorded Client Recorded Date Recorded By Document 07/19/17 14:30 [id number] 07/19/17 14:53 07/19/17 14:30 Wound Center Nurse 2 #9 Lower Lumbar- Midline -Time 14:31 -Correct Patient Yes -Correct Side, Site, Position Yes -Correct Procedure Yes -Procedure Performed Yes -Type of Procedure Debridement -Clinical Debridement Muscle -Post Debridement Size (cm) - Length 14.0 -Post Debridement Size (cm) - Width 4.9 -Post Debridement Size (cm) - Depth 1.0 -Total Square Cm 68.60 -Wound/Ulcer Outcome Not Healed -Ulcer Cleansing Rinsed/ Irrigated with Saline -Foul Odor after Cleansing No -Bioengineered Tissue No -Topical Lidocaine (%) 5 -Bleeding Controlled with Pressure -Treatment Response Procedure Tolerated Well Pain Scale: 0-10 Numeric Is Patient Pain Free? Yes Wound debrided: lower lumbar - midline Laterality: Not Applicable Type of Debridement: Excisional debridement Anesthesia Used: 4% Lidocaine Solution Depth: Down to and including healthy tissue, in the subcutaneous layer Percentage of wound debrided: 100 Instrument Used: 5mm curette Tissue Removed: yellow slough and devitalized tissue Severity: Fat Layer Exposed Amount of bleeding with debridement: Mild Bleeding Controlled with: Compression and gauze, Silver Nitrate Patient tolerated procedure well Assessment/Plan Active Problems (Last Updated 07/17/17 @ 16:04 by Marzena Jackson) Nonhealing surgical wound (Chronic) Open wound of lower back (Chronic) 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 malnutrition. other multiple comorbidities. edema bilateral lower extremities. venous insufficiency. immunocompromised status. Plan: Marco As wound/ulcer was evaluated and debrided today. It is improved in size and in depth since his last visit. The tissue appears healthy and without signs of infection currently. No odor is present. Will continue wound vac at 125 mm Hg with changes three times/week. Continue IV antibiotics as directed and MRI as scheduled. He will call if he has any redness or odor or increased drainage. F/U 1 week.
[2017-07-26 12:47] VITALS: BP 133/68; PULSE 76; RESP 16; TEMP 36.6; BMI 56.5
--- NOTE | 2017-07-26 15:39 | PN.PCM_ITS ---
(1) Nonhealing surgical wound Status: Chronic Current Visit: Yes Qualifiers: Encounter type: subsequent encounter Qualified Code(s): T81.89XD - Other complications of procedures, not elsewhere classified, subsequent encounter Code(s): T81.89XA - Other complications of procedures, not elsewhere classified , initial encounter (2) Open wound of lower back Status: Chronic Current Visit: Yes Code(s): S31.000A - Unspecified open wound of lower back and pelvis without penetration into retroperitoneum, initial encounter (3) Osteomyelitis of lumbar spine Status: Chronic Current Visit: Yes Code(s): M46.26 - Osteomyelitis of vertebra, lumbar region (4) 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 Status: Chronic Current Visit: Yes Code(s): G06.1 - Intraspinal abscess and granuloma (5) Paroxysmal atrial fibrillation Status: Chronic Current Visit: Yes Code(s): I48.0 - Paroxysmal atrial fibrillation (6) Chronic kidney disease Status: Chronic Current Visit: Yes Qualifiers: Chronic kidney disease stage: stage 4 (severe) Qualified Code(s): N18.4 - Chronic kidney disease, stage 4 (severe) Code(s): N18.9 - Chronic kidney disease, unspecified Type of Wound Date of Service: 07/26/17 Chief Complaint: Nonhealing surgical wound of lower back History of Wound: Cuong is a 71-year-old white male who presents for treatment of nonhealing surgical wound of his lower back s/p surgical debridement for an abscess s/p lumbar spine surgery. His original surgery on his lower back was approximately February 2016 and he has had multiple complications since that time. He underwent surgical debridement on 03/04/[address] Davila at [facility] in [place] and was discharged with a wound vac for healing by secondary intention with possible muscle flap closure in the future. He has been scheduled several times for muscle flap closure at [facility] over the last several months but each time his surgeon has felt that there is an infection and postponed surgery. He was discontinued off of the wound vac in May and was using wet to dry dressings in preparation for surgery and was being seen here for debridements until surgery until he was again hospitalized in June 21, 2017 for sepsis, A. fib and heart failure. He was found to have an epidural abscess and osteomyelitis of L5 and ultimately was transferred to [facility] as they felt he may need surgical debridement and drainage of the abscess. At [facility] testing was repeated and the abscess had shrunk in size. He was discharged on IV antibiotics of Zosyn and Vancomycin until 07/30/17. He was also restarted on the wound vac at 125 mm Hg. He is scheduled for a repeat MRI on 07/24/17 and if abscess is resolved then they will consider surgical wound closure with muscle flap again. He denies fever, chills, nausea, vomiting, redness. He is here with his today. Progress of Wound: Cuong returns for follow up treatment of a nonhealing surgical wound of his lumbar spine s/p excisional debridement for infection of previous spinal surgery. Since his visit last week, he did have bleeding on Saturday as the nurse that changed his wound vac did not place adaptic in the wound bed and when the foam was removed he had a lot of bleeding from the distal area of the wound. He had to go to the ER and have gel foam placed as well as compressive dressing. Wound vac was held until today's visit. They used Aquacel to his wound yesterday and today until his visit. Gel foam cauterized the bleeding and he did well the last two days. Denies any increased pain or drainage or any odor. He also had an MRI repeated which showed resolution of his abscess. He will complete IV antibiotics next week and switch to oral antibiotics. He follows up with his surgeon on 08/08/2017. His hemoglobin on Saturday was 7.4. He had Procrit given to him on Saturday. - Physical Exam Vital Signs Temp Pulse Resp BP 98 F 76 16 133/68 H 07/26/17 12:47 07/26/17 12:47 07/26/17 12:47 07/26/17 12:47 General: Alert, Oriented x3, Cooperative, No apparent distress HEENT: Atraumatic, Normocephalic Oral: Moist Mucosa Skin: Ulcer/ Wound Wound Measurements and Assessment WC - Nurse 1 - General Ulcer Measurement Start: 07/19/17 10:43 Freq: Status: Active Protocol: Activity Type Activity Date Activity User E-Sign Co-Sign Detail Recorded Client Recorded Date Recorded By Document 07/26/17 12:47 BM [id number] 07/26/17 12:58 BMF 07/26/17 12:47 Wound Center Nurse 1 [Ulcer Assessment] #9 Lower Lumbar- Midline -Combined with other wound No -Current Size (cm) - Length 15 -Current Size (cm) - Width 4.9 -Current Size (cm) - Depth 1 -Total Square Cm 73.5 -Photo Taken No -Epithelialization None Present -Tunneling No -Undermining/Tunneling Yes -Undermining/Tunneling Starts (O' 9 clock) -Undermining/Tunneling Ends (O'clock) 12 -Maximum Distance (cm) 0.9 -Exudate Amt Medium (34-66%) -Exudate Type Serosanguineous -Wound Margin Distinct, Outline Attached -Granulation Amt Medium (34-66%) -Granulation Quality Red -Slough/Fibrin Yes -Necrosis Amt Medium (34-66%) -Necrotic Tissue Type Adherent Slough -Texture (Uma-wound Skin Appearance) Scarring Rash -Moisture (Uma-wound Skin Appearance Dry/Scaly ) -Color (Uma-wound Skin Appearance) Erythema -Temperature (Uma-wound Skin No Abnormality Appearance) (Pt Warm) -Tenderness on Palpation (Uma-wound Yes Skin Appearance) -Ulcer Cleansing Rinsed/ Irrigated with Saline -Foul Odor after Cleansing No -Anesthetic Used 4% Lidocaine Solution WC - Nurse 2 - General Ulcer CM Notes Start: 07/19/17 10:43 Freq: Status: Active Protocol: Activity Type Activity Date Activity User E-Sign Co-Sign Detail Recorded Client Recorded Date Recorded By Document 07/26/17 14:02 DV [id number] 07/26/17 14:18 DV 07/26/17 14:02 Wound Center Nurse 2 [Procedure/Treatment] -Time 14:03 -Correct Patient Yes -Correct Side, Site, Position Yes -Correct Procedure Yes -Procedure Performed Yes -Type of Procedure Debridement -Clinical Debridement Muscle -Post Debridement Size (cm) - Length 14.0 -Post Debridement Size (cm) - Width 5.0 -Post Debridement Size (cm) - Depth 1.0 -Total Square Cm 70.00 -Wound/Ulcer Outcome Not Healed -Ulcer Cleansing Rinsed/ Irrigated with Saline -Foul Odor after Cleansing No -Bioengineered Tissue No -Bleeding Controlled with Pressure -Treatment Response Procedure Tolerated Well [See Physician Procedure note for Specifics] Psych/Mental Status: Normal Affect, Appropriate Debridement Note Post-Debridement Measurements/Treatment WC - Nurse 2 - General Ulcer CM Notes Start: 07/19/17 10:43 Freq: Status: Active Protocol: Activity Type Activity Date Activity User E-Sign Co-Sign Detail Recorded Client Recorded Date Recorded By Document 07/19/17 14:30 TM [id number] 07/19/17 14:53 TM Document 07/26/17 14:02 DV [id number] 07/26/17 14:18 DV 07/19/17 07/26/17 14:30 14:02 Wound Center Nurse 2 #9 Lower Lumbar- Midline -Time 14:31 14:03 -Correct Patient Yes Yes -Correct Side, Site, Position Yes Yes -Correct Procedure Yes Yes -Procedure Performed Yes Yes -Type of Procedure Debridement Debridement -Clinical Debridement Muscle Muscle -Post Debridement Size (cm) - Length 14.0 14.0 -Post Debridement Size (cm) - Width 4.9 5.0 -Post Debridement Size (cm) - Depth 1.0 1.0 -Total Square Cm 68.60 70.00 -Wound/Ulcer Outcome Not Healed Not Healed -Ulcer Cleansing Rinsed/ Rinsed/ Irrigated with Irrigated with Saline Saline -Foul Odor after Cleansing No No -Bioengineered Tissue No No -Topical Lidocaine (%) 5 -Bleeding Controlled with Pressure Pressure -Treatment Response Procedure Procedure Tolerated Well Tolerated Well Pain Scale: 0-10 Numeric Is Patient Pain Free? Yes Wound debrided: lower lumbar midline Laterality: Not Applicable Type of Debridement: Excisional debridement Anesthesia Used: 4% Lidocaine Solution Depth: Down to and including healthy tissue, in the subcutaneous layer Percentage of wound debrided: 100 Instrument Used: 7mm curette Tissue Removed: yellow slough, devitalized tissue of muscle and subcutaneous tissue Severity: Necrosis of Muscle Amount of bleeding with debridement: Mild Bleeding Controlled with: Compression and gauze, Silver Nitrate Patient tolerated procedure well Assessment/Plan Active Problems (Last Updated 07/17/17 @ 16:04 by Marzena Jackson) Nonhealing surgical wound (Chronic) Open wound of lower back (Chronic) Osteomyelitis of lumbar spine (Chronic) 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 malnutrition. other multiple comorbidities. edema bilateral lower extremities. venous insufficiency. immunocompromised status. Plan: Cuong's wound/ulcer was evaluated and debrided today. It is improved in size and in depth since his last visit. The tissue appears healthy and without signs of infection currently. No odor is present. Will continue wound vac at 125 mm Hg with changes three times/week. Must have adaptic placed in wound bed prior to foam being placed. Continue IV antibiotics as directed. Abscess is resolved based on MRI results. He will call if he has any redness or odor or increased drainage. F/U 1 week.
[2017-08-02 13:56] VITALS: BP 124/74; PULSE 76; RESP 18; TEMP 36.7; BMI 56.5
--- NOTE | 2017-08-02 19:01 | PCM.WC.PN ---
(1) Nonhealing surgical wound Status: Chronic Current Visit: Yes Qualifiers: Encounter type: subsequent encounter Qualified Code(s): T81.89XD - Other complications of procedures, not elsewhere classified, subsequent encounter Code(s): T81.89XA - Other complications of procedures, not elsewhere classified, initial encounter (2) Open wound of lower back Status: Chronic Current Visit: Yes Code(s): S31.000A - Unspecified open wound of lower back and pelvis without penetration into retroperitoneum, initial encounter (3) Osteomyelitis of lumbar spine Status: Chronic Current Visit: Yes Code(s): M46.26 - Osteomyelitis of vertebra, lumbar region (4) 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 Status: Chronic Current Visit: Yes Code(s): G06.1 - Intraspinal abscess and granuloma (5) Paroxysmal atrial fibrillation Status: Chronic Current Visit: Yes Code(s): I48.0 - Paroxysmal atrial fibrillation (6) Chronic kidney disease Status: Chronic Current Visit: Yes Qualifiers: Chronic kidney disease stage: stage 4 (severe) Qualified Code(s): N18.4 - Chronic kidney disease, stage 4 (severe) Code(s): N18.9 - Chronic kidney disease, unspecified Type of Wound Date of Service: 08/02/17 Chief Complaint: Nonhealing surgical wound of lower back History of Wound: Cuong is a 71-year-old white male who presents for treatment of nonhealing surgical wound of his lower back s/p surgical debridement for an abscess s/p lumbar spine surgery. His original surgery on his lower back was approximately February 2016 and he has had multiple complications since that time. He underwent surgical debridement on 03/04/[address] Davila at [facility] in [place] and was discharged with a wound vac for healing by secondary intention with possible muscle flap closure in the future. He has been scheduled several times for muscle flap closure at [facility] over the last several months but each time his surgeon has felt that there is an infection and postponed surgery. He was discontinued off of the wound vac in May and was using wet to dry dressings in preparation for surgery and was being seen here for debridements until surgery until he was again hospitalized in June 21, 2017 for sepsis, A. fib and heart failure. He was found to have an epidural abscess and osteomyelitis of L5 and ultimately was transferred to [facility] as they felt he may need surgical debridement and drainage of the abscess. At [facility] testing was repeated and the abscess had shrunk in size. He was discharged on IV antibiotics of Zosyn and Vancomycin until 07/30/17. He was also restarted on the wound vac at 125 mm Hg. He is scheduled for a repeat MRI on 07/24/17 and if abscess is resolved then they will consider surgical wound closure with muscle flap again. He denies fever, chills, nausea, vomiting, redness. He is here with his today. Progress of Wound: Cuong returns for follow up treatment of a nonhealing surgical wound of his lumbar spine s/p excisional debridement for infection of previous spinal surgery. He had irritation of his periwound. He had bleeding of the wound today when the wound vac was taken off. The area that is bleeding is spongy and soft and approximately around L4 vertebrae. The adaptic was bunched up at the base of the wound and was soaked in blood. Denies any increased pain or drainage or any odor but due to his bleeding and the tissue texture change a wound culture was taken today. He also had an MRI repeated which showed resolution of his abscess. He completed IV antibiotics and his PICC was removed. He is taking Cefdinir oral antibiotics. He follows up with his surgeon on 08/08/2017. His hemoglobin on 07/30/17 was 7.5. He had Procrit given to him on 07/23/17. - Physical Exam Vital Signs Temp Pulse Resp BP 98.0 F 76 18 124/74 H 08/02/17 13:56 08/02/17 13:56 08/02/17 13:56 08/02/17 13:56 General: Alert, Oriented x3, Cooperative, No apparent distress HEENT: Atraumatic, Normocephalic Oral: Moist Mucosa Skin: Ulcer/ Wound Wound Measurements and Assessment WC - Nurse 1 - General Ulcer Measurement Start: 07/19/17 10:43 Freq: Status: Active Protocol: Activity Type Activity Date Activity User E-Sign Co-Sign Detail Recorded Client Recorded Date Recorded By Document 08/02/17 13:56 TM [id number] 08/02/17 14:24 TM 08/02/17 13:56 Wound Center Nurse 1 [Ulcer Assessment] #9 Lower Lumbar- Midline -Combined with other wound No -Current Size (cm) - Length 14.5 -Current Size (cm) - Width 5.0 -Current Size (cm) - Depth 0.5 -Total Square Cm 72.50 -Photo Taken No -Epithelialization Small 1-33% -Tunneling No -Undermining/Tunneling No -Circular Undermining No -Classification - Thickness Full Thickness with Exposed Support Structure -Exudate Amt Large (67-100%) -Exudate Type Serosanguineous -Wound Margin Distinct, Outline Attached -Granulation Amt Large (67-100%) -Granulation Quality Red -Slough/Fibrin Yes -Necrosis Amt Small (1-33%) -Necrotic Tissue Type Adherent Slough -Structure Exposed Fascia Muscle Fat Layer Exposed -Texture (Uma-wound Skin Appearance) Rash -Moisture (Uma-wound Skin Appearance No Abnormality ) -Color (Uma-wound Skin Appearance) Erythema -Temperature (Uma-wound Skin No Abnormality Appearance) (Pt Warm) -Tenderness on Palpation (Uma-wound No Skin Appearance) -Ulcer Cleansing Rinsed/ Irrigated with Saline -Foul Odor after Cleansing No -Anesthetic Used 5% Lidocaine Gel [Edema Assessment] -Lower Limb Edema Present No WC - Nurse 2 - General Ulcer CM Notes Start: 07/19/17 10:43 Freq: Status: Active Protocol: Activity Type Activity Date Activity User E-Sign Co-Sign Detail Recorded Client Recorded Date Recorded By Document 08/02/17 13:56 [id number] 08/02/17 14:24 08/02/17 13:56 Wound Center Nurse 2 [Procedure/Treatment] #9 Lower Lumbar- Midline -Time 14:23 -Correct Patient Yes -Correct Side, Site, Position Yes -Correct Procedure Yes -Procedure Performed Yes -Type of Procedure Debridement -Clinical Debridement Muscle -Post Debridement Size (cm) - Length 14.6 -Post Debridement Size (cm) - Width 5.0 -Post Debridement Size (cm) - Depth 0.5 -Total Square Cm 73.00 -Wound/Ulcer Outcome Not Healed -Ulcer Cleansing Rinsed/ Irrigated with Saline -Foul Odor after Cleansing No -Bioengineered Tissue No -Topical Lidocaine (%) 5 -Bleeding Controlled with Pressure -Other undermining @11 -1 1.0cm -Treatment Response Procedure Tolerated Well Psych/Mental Status: Normal Affect, Appropriate Debridement Note Post-Debridement Measurements/Treatment WC - Nurse 2 - General Ulcer CM Notes Start: 07/19/17 10:43 Freq: Status: Active Protocol: Activity Type Activity Date Activity User E-Sign Co-Sign Detail Recorded Client Recorded Date Recorded By Document 07/19/17 14:30 TM [id number] 07/19/17 14:53 TM Document 07/26/17 14:02 DV [id number] 07/26/17 14:18 DV Document 08/02/17 13:56 TM [id number] 08/02/17 14:24 TM 07/19/17 07/26/17 08/02/17 14:30 14:02 13:56 Wound Center Nurse 2 #9 Lower Lumbar- Midline -Time 14:31 14:03 14:23 -Correct Patient Yes Yes Yes -Correct Side, Site, Position Yes Yes Yes -Correct Procedure Yes Yes Yes -Procedure Performed Yes Yes Yes -Type of Procedure Debridement Debridement Debridement -Clinical Debridement Muscle Muscle Muscle -Post Debridement Size (cm) - Length 14.0 14.0 14.6 -Post Debridement Size (cm) - Width 4.9 5.0 5.0 -Post Debridement Size (cm) - Depth 1.0 1.0 0.5 -Total Square Cm 68.60 70.00 73.00 -Wound/Ulcer Outcome Not Healed Not Healed Not Healed -Ulcer Cleansing Rinsed/ Rinsed/ Rinsed/ Irrigated with Irrigated with Irrigated with Saline Saline Saline -Foul Odor after Cleansing No No No -Bioengineered Tissue No No No -Topical Lidocaine (%) 5 5 -Bleeding Controlled with Pressure Pressure Pressure -Other undermining @11 -1 1.0cm -Treatment Response Procedure Procedure Procedure Tolerated Well Tolerated Well Tolerated Well Pain Scale: 0-10 Numeric Is Patient Pain Free? Yes Wound debrided: lower lumbar - midline Laterality: Not Applicable Type of Debridement: Excisional debridement Anesthesia Used: 4% Lidocaine Solution Depth: Down to and including healthy tissue, in the subcutaneous layer Percentage of wound debrided: 100 Instrument Used: 5mm curette Tissue Removed: yellow slough, devitalized tissue Severity: Fat Layer Exposed Amount of bleeding with debridement: Mild Bleeding Controlled with: Compression and gauze, Gel Foam Patient tolerated procedure well Assessment/Plan Active Problems (Last Updated 07/17/17 @ 16:04 by Marzena Jackson) Nonhealing surgical wound (Chronic) Open wound of lower back (Chronic) Osteomyelitis of lumbar spine (Chronic) 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 malnutrition. other multiple comorbidities. edema bilateral lower extremities. venous insufficiency. immunocompromised status. Plan: Marco As wound/ulcer was evaluated and debrided today. It is improved in size and in depth since his last visit. The tissue appears healthy but there is bleeding and tissue texture change at same site. Wound culture taken to r/o infection. No odor is present. Due to the irritation surrounding his wound will hold wound vac until Saturday and have his use Aquacel to the wound bed and triamcinolone cream to the uma-wound irritation. Will continue wound vac at 125 mm Hg with changes three times/week starting again on Saturday. Must have adaptic placed in wound bed prior to foam being placed. Continue oral antibiotics as directed. Abscess is resolved based on MRI results. He will call if he has any redness or odor or increased drainage. F/U 1 week.
== END 2017-08-03 23:59 ==
LOC: WC 13:00
PROVIDERS: Family Provider Family Medicine; PCP Family Medicine; Visit Provider Family Medicine
DX: T81.30XA Disruption of wound, unspecified, initial encounter (principal); B99.8 Other infectious disease; M46.26 Osteomyelitis of vertebra, lumbar region; I48.0 Paroxysmal atrial fibrillation; N18.4 Chronic kidney disease, stage 4 (severe); G06.1 Intraspinal abscess and granuloma; R60.0 Localized edema; I87.2 Venous insufficiency (chronic) (peripheral); Z86.711 Personal history of pulmonary embolism; E78.5 Hyperlipidemia, unspecified; I73.9 Peripheral vascular disease, unspecified; I13.0 Hypertensive heart and chronic kidney disease with heart failure and stage 1 through stage 4 chronic kidney disease, or unspecified chronic kidney disease; I50.32 Chronic diastolic (congestive) heart failure; C85.90 Non-Hodgkin lymphoma, unspecified, unspecified site; Z79.899 Other long term (current) drug therapy; Z79.01 Long term (current) use of anticoagulants; Z79.82 Long term (current) use of aspirin; Z87.891 Personal history of nicotine dependence; A41.9 Sepsis, unspecified organism; I47.1 Supraventricular tachycardia; I21.4 Non-ST elevation (NSTEMI) myocardial infarction
CPT/HCPCS: 11043; 11046; 80048; 80202; 87070; 87075; 87077; 87186; 87205; 97606; 99213; G0463

== ENCOUNTER → 2017-08-06 10:48 | Outpatient (CLI) | payer MEDICARE, OTHER, SELFPAY ==
[2015-10-31 10:00] VITALS: BMI 34.9
[2017-08-06 11:20] VITALS: BP 137/71; PULSE 72; RESP 18; TEMP 37.1; O2SAT 100
[2017-08-06 11:41] LABS: Hematocrit 28.4 % (40-54)
[2017-08-06 11:50] LABS: Albumin, Serum 2.3 g/dL (3.2-5.0); BUN 34 mg/dL (7-18); BUN/Creat Ratio 14.7 RATIO (10-20); Calcium,Total 8.8 mg/dL (8.5-10.1); Chloride 107 mmol/L (98-107); Creatinine, Serum 2.32 mg/dL (0.70-1.30); EST Glomerular Filtration Rate 30 mL/min (>60); Est Glom Filt Rate - Afr Amer 36 mL/min (>60); Glucose 89 mg/dL (74-106); Phosphorus 3.8 mg/dL (2.5-4.9); Potassium 4.3 mmol/L (3.5-5.1); Sodium Level 140 mmol/L (136-145)
== END ==
PROVIDERS: Family Provider Family Medicine; PCP Family Medicine; Visit Provider Internal Medicine Nephrology
DX: N18.3 Chronic kidney disease, stage 3 (moderate) (principal); D63.1 Anemia in chronic kidney disease
CPT/HCPCS: 36415; 80069; 85014; 85018; 96372; J0885

== ENCOUNTER → 2017-08-20 10:27 | Outpatient (CLI) | payer MEDICARE, OTHER, SELFPAY ==
[2015-10-31 10:00] VITALS: BMI 34.9
[2017-08-20 11:05] VITALS: BP 131/65; PULSE 72; RESP 16; TEMP 36.8; O2SAT 99; BMI 23.6
[2017-08-20 11:05] LABS: Absolute Lymphocyte Count 1.47 X10^3/ul (0.83-4.51); Absolute Neutrophil Count 4.3 X10^3/uL (2.0-7.7); Basophil# 0.02 X10^3/uL; Basophil% 0.3 % (0-1); Eosinophil# 0.22 X10^3/uL; Eosinophils% 3.2 % (0-5); Hematocrit 28.6 % (40-54); Lymphocyte # 1.47 X10^3/ul (4.0); Lymphocyte % 21.2 % (19-41); Mean Corp Hgb Conc 31.5 g/gl (32-36); Mean Corpuscular Volume 101.8 fL (80-94); Mean Platelet Vol. 9.1 fl (6.2-12.0); Neutrophil % 62.2 % (47-70); Platelet Count 191 K/mm3 (150-450); RBC Distribution Width CV 16.2 % (11.6-14.6); RBC Distribution Width SD 60.1 fl (35.1-43.9); Red Blood Count 2.81 M/mm3 (4.6-6.2); White Blood Count 6.9 K/mm3 (4.4-11.0)
[2017-08-20 11:06] LABS: POSITIVE COUNT NO; POSITIVE DIFFERENTIAL NO; POSITIVE MORPHOLOGY NO
== END ==
PROVIDERS: Family Provider Family Medicine; PCP Family Medicine; Visit Provider Internal Medicine Nephrology
DX: N18.3 Chronic kidney disease, stage 3 (moderate) (principal); D63.1 Anemia in chronic kidney disease
CPT/HCPCS: 36415; 85025; 96372; J0885

== ENCOUNTER 2017-08-28 11:00 | Outpatient (RCR) | payer MEDICARE, OTHER, SELFPAY ==
[2015-10-31 10:00] VITALS: BMI 34.9
[2017-08-04 00:33] VITALS: BP 126/65; PULSE 76; RESP 18; TEMP 36.7; BMI 56.5
[2017-08-07 11:35] VITALS: BP 146/72; PULSE 73; RESP 16; TEMP 35.2; BMI 56.5
--- NOTE | 2017-08-07 22:18 | PCM.WC.HP ---
(1) Nonhealing surgical wound Status: Chronic Current Visit: No Qualifiers: Code(s): T81.89XA - Other complications of procedures, not elsewhere classified, initial encounter (2) Open wound of lower back Status: Chronic Current Visit: No Code(s): S31.000A - Unspecified open wound of lower back and pelvis without penetration into retroperitoneum, initial encounter (3) Osteomyelitis of lumbar spine Status: Chronic Current Visit: No Code(s): M46.26 - Osteomyelitis of vertebra, lumbar region History of Present Illness Date of Service: 08/07/17 Chief Complaint: Nonhealing surgical wound of lower back History of Wound: Mr. Marshall is a 72-yo who has been sen here at the wound center for a nonhealing surgical wound of his lower back s/p surgical debridement for an abscess s/p lumbar spine surgery. His original surgery on his lower back was approximately 18 months ago and he has had multiple complications since that time. He underwent surgical debridement on 03/04/[address] Davila at [facility] in [place] and was discharged with a wound vac for healing by secondary intention with possible muscle flap closure in the future. He followed up with his surgeon on 04/18/17 for further evaluation and recommendations and they plan to close the wound with a muscle flap. He had previously been seen by Dr. Wick however, he was transffered to my care due to her FMLA. He denies any active complaints at this time. He had a wound culture done at his last visit which grew Candidia Albicans and VRE. He is also being seen by Infectious Disease. 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 Wound debridement 03/04/2017, 05/14/2017 at [facility]> Allergies/Adverse Reactions: Allergies chlorthalidone Allergy (Verified 08/06/17 11:09) Unknown ramipril [From Altace] Allergy (Verified 08/06/17 11:09) Unknown sulfamethoxazole [From Bactrim] Allergy (Verified 08/06/17 11:09) Other trazodone Allergy (Verified 08/06/17 11:09) Unknown trimethoprim [From Bactrim] Allergy (Verified 08/06/17 11:09) Other prednisone Adverse Reaction (Verified 08/06/17 11:09) Swelling Home Medications: Ambulatory Orders Medication Instructions Recorded Ferrous Gluconate 240 mg PO BID 02/05/16 Folic Acid 1 mg PO DAILY@0800 02/05/16 Magnesium Oxide [Magnesium] 400 mg PO DAILY@0800 02/05/16 Apixaban [Eliquis] 2.5 mg PO BID 03/16/16 Cholecalciferol (Vitamin D3) 1,000 unit PO DAILY@0800 10/14/16 [Vitamin D3] Aspirin 81 mg PO DAILY@0800 07/04/17 Atorvastatin Calcium [Lipitor] 20 mg PO QHS 07/04/17 Cyanocobalamin [Vitamin B12] 1,000 mcg PO DAILY@0800 07/04/17 Gabapentin [Neurontin] 100 mg PO TIDCM 07/04/17 Metoprolol Succinate [Toprol Xl] 12.5 mg PO DAILY 07/04/17 Sodium Hypochlorite [Dakins 1 applic TOPICAL DAILY 07/04/17 Solution 0.25% (1/2 Strength)] Vit C/E/Zn/Coppr/Lutein/Zeaxan 2 ea PO QHS 07/04/17 [Preservision Areds 2 Softgel] Zinc Sulfate (50mg elemental) 220 mg PO DAILY 07/04/17 [Zinc Sulfate] 0.9% Saline Lock 10 ml IV UD PRN syringe 07/12/17 Acetaminophen [Tylenol] 1,000 mg PO Q8H PRN tab 07/12/17 Lactobacillus Acidophilus 1 tab PO BID #60 tab 07/12/17 [Acidophilus] Melatonin 3 mg PO QHS #30 tab 07/12/17 Mineral Oil/Petrolatum,White 1 applic TOPICAL BID PRN PRN jar 07/12/17 [Eucerin] Senna/Docusate Sodium [Senokot-S] 2 tab PO BID #120 tab 07/12/17 Sodium Chloride 0.65% [[place] Nasal 2 spray NASAL BID PRN PRN 07/12/17 [place]] spray.btl Oxycodone HCl 30 mg PO Q4H PRN PRN 07/23/17 Cefdinir 300 mg PO DAILY 08/06/17 - Family History Maternal Family History: Family History (Last Updated 07/17/17 @ 16:05 by Marzena Jackson) Father Diabetes Heart disease Mother Heart disease Heart Disease Paternal Family History: Family History (Last Updated 07/17/17 @ 16:05 by Marzena Jackson) Father Diabetes Heart disease Mother Heart disease Diabetes Smoking Status: Former smoker Tobacco Use: Non-smoker Review of Systems Constitutional: Denies: Anorexia, Chills, Malaise Eyes: Denies: Blurred vision, Redness Cardiovascular: Denies: Chest Pain, Chest Tightness Respiratory: Denies: Hemoptysis, Wheezing Gastrointestinal: Denies: Abdominal Pain, Hematemesis, Vomiting Skin: Denies: Jaundice - Physical Exam Vital Signs Temp Pulse Resp BP 95.3 F L 73 16 146/72 H 08/07/17 11:35 08/07/17 11:35 08/07/17 11:35 08/07/17 11:35 General: Alert, Oriented x3, Cooperative, No apparent distress HEENT: Atraumatic, Normocephalic Oral: Moist Mucosa Neck: Supple Lungs: Normal air movement Cardiovascular: Regular rate Extremities: No cyanosis Skin: Ulcer/ Wound Wound Measurements and Assessment - Nurse 1 - General Ulcer Measurement Start: 08/07/17 11:33 Freq: Status: Active Protocol: Activity Type Activity Date Activity User E-Sign Co-Sign Detail Recorded Client Recorded Date Recorded By Document 08/07/17 11:35 [facility] [id number] 08/07/17 11:44 [facility] 08/07/17 11:35 Wound Center Nurse 1 [Ulcer Assessment] #9 Lower Lumbar- Midline -Combined with other wound No -Current Size (cm) - Length 14.4 -Current Size (cm) - Width 4 -Current Size (cm) - Depth 0.7 -Total Square Cm 57.6 -Photo Taken No -Epithelialization None Present -Tunneling No -Undermining/Tunneling Yes -Undermining/Tunneling Starts (O' 6 clock) -Undermining/Tunneling Ends (O'clock) 1 -Maximum Distance (cm) 1.1 -Exudate Amt Medium (34-66%) -Exudate Type Serosanguineous -Wound Margin Distinct, Outline Attached -Granulation Amt Large (67-100%) -Granulation Quality Red -Slough/Fibrin Yes -Necrosis Amt Small (1-33%) -Necrotic Tissue Type Adherent Slough -Texture (Uma-wound Skin Appearance) Assessed Scarring -Moisture (Uma-wound Skin Appearance Assessed ) Dry/Scaly -Color (Uma-wound Skin Appearance) Assessed Erythema -Temperature (Uma-wound Skin No Abnormality Appearance) (Pt Warm) -Tenderness on Palpation (Uma-wound Yes Skin Appearance) -Ulcer Cleansing Rinsed/ Irrigated with Saline -Foul Odor after Cleansing No -Anesthetic Used 4% Lidocaine Solution WC - Nurse 2 - General Ulcer CM Notes Start: 08/07/17 11:33 Freq: Status: Active Protocol: Activity Type Activity Date Activity User E-Sign Co-Sign Detail Recorded Client Recorded Date Recorded By Document 08/07/17 12:36 DV [id number] 08/07/17 12:43 DV 08/07/17 12:36 Wound Center Nurse 2 [Procedure/Treatment] -Time 12:36 -Correct Patient Yes -Correct Side, Site, Position Yes -Correct Procedure Yes -Procedure Performed Yes -Type of Procedure Debridement -Clinical Debridement Subcutaneous -Post Debridement Size (cm) - Length 14.0 -Post Debridement Size (cm) - Width 4.8 -Post Debridement Size (cm) - Depth 1.3 -Total Square Cm 67.20 -Wound/Ulcer Outcome Not Healed -Ulcer Cleansing Rinsed/ Irrigated with Saline -Foul Odor after Cleansing No -Bioengineered Tissue No -Bleeding Controlled with Silver Nitrate -Treatment Response Procedure Tolerated Well [See Physician Procedure note for Specifics] Pain Scale: 0-10 Numeric [Pain] -Is Patient Pain Free? Yes Musculoskeletal: No Muscle Wasting Neurological: Cranial nerves II-XII grossly intact Psych/Mental Status: Normal Affect Debridement Note Post-Debridement Measurements/Treatment WC - Nurse 2 - General Ulcer CM Notes Start: 08/07/17 11:33 Freq: Status: Active Protocol: Activity Type Activity Date Activity User E-Sign Co-Sign Detail Recorded Client Recorded Date Recorded By Document 08/07/17 12:36 DV [id number] 08/07/17 12:43 DV 08/07/17 12:36 Wound Center Nurse 2 #9 Lower Lumbar- Midline -Time 12:36 -Correct Patient Yes -Correct Side, Site, Position Yes -Correct Procedure Yes -Procedure Performed Yes -Type of Procedure Debridement -Clinical Debridement Subcutaneous -Post Debridement Size (cm) - Length 14.0 -Post Debridement Size (cm) - Width 4.8 -Post Debridement Size (cm) - Depth 1.3 -Total Square Cm 67.20 -Wound/Ulcer Outcome Not Healed -Ulcer Cleansing Rinsed/ Irrigated with Saline -Foul Odor after Cleansing No -Bioengineered Tissue No -Bleeding Controlled with Silver Nitrate -Treatment Response Procedure Tolerated Well Pain Scale: 0-10 Numeric Is Patient Pain Free? Yes Wound debrided: Midline Lumbar (Spine ) area Wound Grade/Stage: Stage III Type of Debridement: Excisional debridement Anesthesia Used: 4% Lidocaine Solution Depth: Down to and including healthy tissue, in the subcutaneous layer Percentage of wound debrided: 100 Instrument Used: 7mm curette Tissue Removed: Slough and Devitalized tissue Severity: Fat Layer Exposed Amount of bleeding with debridement: Mild Bleeding Controlled with: Silver Nitrate Patient tolerated procedure well Assessment/Plan Assessment: chronic surgical wound dehiscence lumbar with complex abscess and recent surgical debridement. malnutrition. other multiple comorbidities. edema bilateral lower extremities. venous insufficiency. immunocompromised status. Plan: Mr. Marshall is here for follow up of his chronic wound. Cultures done at last visit positive for candidia Albicans and VRE. Wound however said to have been stable over the past week though patient appears to have been having a malfuctioning of his wound Vac over the last 2 days. Debridement done as documented above. Procedure was well tolerated. Wet to dry dressing for now until wound VAC is sorted out within the next 24 hours. Case/cultures discussed with Dr. Akers. Will start on Fluconazole 200mg daily x 2 weeks and Linezolid 600mg BID x 2 weeks. Follow up with Dr. Akers in the wound center in 1 week. Continue high protein diet. Follow up in 2 weeks with mi.
--- NOTE | 2017-08-07 22:29 | HP.PCM_ITS ---
(1) Nonhealing surgical wound Status: Chronic Current Visit: No Qualifiers: Code(s): T81.89XA - Other complications of procedures, not elsewhere classified , initial encounter (2) Open wound of lower back Status: Chronic Current Visit: No Code(s): S31.000A - Unspecified open wound of lower back and pelvis without penetration into retroperitoneum, initial encounter (3) Osteomyelitis of lumbar spine Status: Chronic Current Visit: No Code(s): M46.26 - Osteomyelitis of vertebra, lumbar region History of Present Illness Date of Service: 08/07/17 Chief Complaint: Nonhealing surgical wound of lower back History of Wound: Mr. Marshall is a 72-yo who has been sen here at the wound center for a nonhealing surgical wound of his lower back s/p surgical debridement for an abscess s/p lumbar spine surgery. His original surgery on his lower back was approximately 18 months ago and he has had multiple complications since that time. He underwent surgical debridement on 03/04/[address] Davila at [facility] in [place] and was discharged with a wound vac for healing by secondary intention with possible muscle flap closure in the future. He followed up with his surgeon on 04/18/17 for further evaluation and recommendations and they plan to close the wound with a muscle flap. He had previously been seen by Dr. Wick however, he was transffered to my care due to her FMLA. He denies any active complaints at this time. He had a wound culture done at his last visit which grew Candidia Albicans and VRE. He is also being seen by Infectious Disease. 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 Wound debridement 03/04/2017, 05/14/2017 at [facility]> Allergies/Adverse Reactions: Allergies chlorthalidone Allergy (Verified 08/06/17 11:09) Unknown ramipril [From Altace] Allergy (Verified 08/06/17 11:09) Unknown sulfamethoxazole [From Bactrim] Allergy (Verified 08/06/17 11:09) Other trazodone Allergy (Verified 08/06/17 11:09) Unknown trimethoprim [From Bactrim] Allergy (Verified 08/06/17 11:09) Other prednisone Adverse Reaction (Verified 08/06/17 11:09) Swelling Home Medications: Ambulatory Orders Medication Instructions Recorded Ferrous Gluconate 240 mg PO BID 02/05/16 Folic Acid 1 mg PO DAILY@0800 02/05/16 Magnesium Oxide [Magnesium] 400 mg PO DAILY@0800 02/05/16 Apixaban [Eliquis] 2.5 mg PO BID 03/16/16 Cholecalciferol (Vitamin D3) 1,000 unit PO DAILY@0800 10/14/16 [Vitamin D3] Aspirin 81 mg PO DAILY@0800 07/04/17 Atorvastatin Calcium [Lipitor] 20 mg PO QHS 07/04/17 Cyanocobalamin [Vitamin B12] 1,000 mcg PO DAILY@0800 07/04/17 Gabapentin [Neurontin] 100 mg PO TIDCM 07/04/17 Metoprolol Succinate [Toprol Xl] 12.5 mg PO DAILY 07/04/17 Sodium Hypochlorite [Dakins 1 applic TOPICAL DAILY 07/04/17 Solution 0.25% (1/2 Strength)] Vit C/E/Zn/Coppr/Lutein/Zeaxan 2 ea PO QHS 07/04/17 [Preservision Areds 2 Softgel] Zinc Sulfate (50mg elemental) 220 mg PO DAILY 07/04/17 [Zinc Sulfate] 0.9% Saline Lock 10 ml IV UD PRN syringe 07/12/17 Acetaminophen [Tylenol] 1,000 mg PO Q8H PRN tab 07/12/17 Lactobacillus Acidophilus 1 tab PO BID #60 tab 07/12/17 [Acidophilus] Melatonin 3 mg PO QHS #30 tab 07/12/17 Mineral Oil/Petrolatum,White 1 applic TOPICAL BID PRN PRN jar 07/12/17 [Eucerin] Senna/Docusate Sodium [Senokot-S] 2 tab PO BID #120 tab 07/12/17 Sodium Chloride 0.65% [[place] Nasal 2 spray NASAL BID PRN PRN 07/12/17 [place]] spray.btl Oxycodone HCl 30 mg PO Q4H PRN PRN 07/23/17 Cefdinir 300 mg PO DAILY 08/06/17 - Family History Maternal Family History: Family History (Last Updated 07/17/17 @ 16:05 by Marzena Jackson) Father Diabetes Heart disease Mother Heart disease Heart Disease Paternal Family History: Family History (Last Updated 07/17/17 @ 16:05 by Marzena Jackson) Father Diabetes Heart disease Mother Heart disease Diabetes Smoking Status: Former smoker Tobacco Use: Non-smoker Review of Systems Constitutional: Denies: Anorexia, Chills, Malaise Eyes: Denies: Blurred vision, Redness Cardiovascular: Denies: Chest Pain, Chest Tightness Respiratory: Denies: Hemoptysis, Wheezing Gastrointestinal: Denies: Abdominal Pain, Hematemesis, Vomiting Skin: Denies: Jaundice - Physical Exam Vital Signs Temp Pulse Resp BP 95.3 F L 73 16 146/72 H 08/07/17 11:35 08/07/17 11:35 08/07/17 11:35 08/07/17 11:35 General: Alert, Oriented x3, Cooperative, No apparent distress HEENT: Atraumatic, Normocephalic Oral: Moist Mucosa Neck: Supple Lungs: Normal air movement Cardiovascular: Regular rate Extremities: No cyanosis Skin: Ulcer/ Wound Wound Measurements and Assessment - Nurse 1 - General Ulcer Measurement Start: 08/07/17 11:33 Freq: Status: Active Protocol: Activity Type Activity Date Activity User E-Sign Co-Sign Detail Recorded Client Recorded Date Recorded By Document 08/07/17 11:35 [facility] [id number] 08/07/17 11:44 [facility] 08/07/17 11:35 Wound Center Nurse 1 [Ulcer Assessment] #9 Lower Lumbar- Midline -Combined with other wound No -Current Size (cm) - Length 14.4 -Current Size (cm) - Width 4 -Current Size (cm) - Depth 0.7 -Total Square Cm 57.6 -Photo Taken No -Epithelialization None Present -Tunneling No -Undermining/Tunneling Yes -Undermining/Tunneling Starts (O' 6 clock) -Undermining/Tunneling Ends (O'clock) 1 -Maximum Distance (cm) 1.1 -Exudate Amt Medium (34-66%) -Exudate Type Serosanguineous -Wound Margin Distinct, Outline Attached -Granulation Amt Large (67-100%) -Granulation Quality Red -Slough/Fibrin Yes -Necrosis Amt Small (1-33%) -Necrotic Tissue Type Adherent Slough -Texture (Uma-wound Skin Appearance) Assessed Scarring -Moisture (Uma-wound Skin Appearance Assessed ) Dry/Scaly -Color (Uma-wound Skin Appearance) Assessed Erythema -Temperature (Uma-wound Skin No Abnormality Appearance) (Pt Warm) -Tenderness on Palpation (Uma-wound Yes Skin Appearance) -Ulcer Cleansing Rinsed/ Irrigated with Saline -Foul Odor after Cleansing No -Anesthetic Used 4% Lidocaine Solution WC - Nurse 2 - General Ulcer CM Notes Start: 08/07/17 11:33 Freq: Status: Active Protocol: Activity Type Activity Date Activity User E-Sign Co-Sign Detail Recorded Client Recorded Date Recorded By Document 08/07/17 12:36 DV [id number] 08/07/17 12:43 DV 08/07/17 12:36 Wound Center Nurse 2 [Procedure/Treatment] -Time 12:36 -Correct Patient Yes -Correct Side, Site, Position Yes -Correct Procedure Yes -Procedure Performed Yes -Type of Procedure Debridement -Clinical Debridement Subcutaneous -Post Debridement Size (cm) - Length 14.0 -Post Debridement Size (cm) - Width 4.8 -Post Debridement Size (cm) - Depth 1.3 -Total Square Cm 67.20 -Wound/Ulcer Outcome Not Healed -Ulcer Cleansing Rinsed/ Irrigated with Saline -Foul Odor after Cleansing No -Bioengineered Tissue No -Bleeding Controlled with Silver Nitrate -Treatment Response Procedure Tolerated Well [See Physician Procedure note for Specifics] Pain Scale: 0-10 Numeric [Pain] -Is Patient Pain Free? Yes Musculoskeletal: No Muscle Wasting Neurological: Cranial nerves II-XII grossly intact Psych/Mental Status: Normal Affect Debridement Note Post-Debridement Measurements/Treatment WC - Nurse 2 - General Ulcer CM Notes Start: 08/07/17 11:33 Freq: Status: Active Protocol: Activity Type Activity Date Activity User E-Sign Co-Sign Detail Recorded Client Recorded Date Recorded By Document 08/07/17 12:36 DV [id number] 08/07/17 12:43 DV 08/07/17 12:36 Wound Center Nurse 2 #9 Lower Lumbar- Midline -Time 12:36 -Correct Patient Yes -Correct Side, Site, Position Yes -Correct Procedure Yes -Procedure Performed Yes -Type of Procedure Debridement -Clinical Debridement Subcutaneous -Post Debridement Size (cm) - Length 14.0 -Post Debridement Size (cm) - Width 4.8 -Post Debridement Size (cm) - Depth 1.3 -Total Square Cm 67.20 -Wound/Ulcer Outcome Not Healed -Ulcer Cleansing Rinsed/ Irrigated with Saline -Foul Odor after Cleansing No -Bioengineered Tissue No -Bleeding Controlled with Silver Nitrate -Treatment Response Procedure Tolerated Well Pain Scale: 0-10 Numeric Is Patient Pain Free? Yes Wound debrided: Midline Lumbar (Spine ) area Wound Grade/Stage: Stage III Type of Debridement: Excisional debridement Anesthesia Used: 4% Lidocaine Solution Depth: Down to and including healthy tissue, in the subcutaneous layer Percentage of wound debrided: 100 Instrument Used: 7mm curette Tissue Removed: Slough and Devitalized tissue Severity: Fat Layer Exposed Amount of bleeding with debridement: Mild Bleeding Controlled with: Silver Nitrate Patient tolerated procedure well Assessment/Plan Assessment: chronic surgical wound dehiscence lumbar with complex abscess and recent surgical debridement. malnutrition. other multiple comorbidities. edema bilateral lower extremities. venous insufficiency. immunocompromised status. Plan: Mr. Marshall is here for follow up of his chronic wound. Cultures done at last visit positive for candidia Albicans and VRE. Wound however said to have been stable over the past week though patient appears to have been having a malfuctioning of his wound Vac over the last 2 days. Debridement done as documented above. Procedure was well tolerated. Wet to dry dressing for now until wound VAC is sorted out within the next 24 hours. Case/cultures discussed with Dr. Akers. Will start on Fluconazole 200mg daily x 2 weeks and Linezolid 600mg BID x 2 weeks. Follow up with Dr. Akers in the wound center in 1 week. Continue high protein diet. Follow up in 2 weeks with ms.
[2017-08-21 11:22] VITALS: BP 119/63; PULSE 80; RESP 16; TEMP 36.6; BMI 56.5
--- NOTE | 2017-08-21 23:30 | PCM.WC.PN ---
(1) Nonhealing surgical wound Status: Chronic Current Visit: Yes Qualifiers: Code(s): T81.89XA - Other complications of procedures, not elsewhere classified, initial encounter (2) Open wound of lower back Status: Chronic Current Visit: Yes Code(s): S31.000A - Unspecified open wound of lower back and pelvis without penetration into retroperitoneum, initial encounter (3) Osteomyelitis of lumbar spine Status: Chronic Current Visit: No Code(s): M46.26 - Osteomyelitis of vertebra, lumbar region Type of Wound Date of Service: 08/21/17 Chief Complaint: Nonhealing surgical wound of lower back History of Wound: Mr. Marshall is a 72-yo who has been sen here at the wound center for a nonhealing surgical wound of his lower back s/p surgical debridement for an abscess s/p lumbar spine surgery. His original surgery on his lower back was approximately 18 months ago and he has had multiple complications since that time. He underwent surgical debridement on 03/04/[address] Davila at [facility] in [place] and was discharged with a wound vac for healing by secondary intention with possible muscle flap closure in the future. He followed up with his surgeon on 04/18/17 for further evaluation and recommendations and they plan to close the wound with a muscle flap. He had previously been seen by Dr. Wick however, he was transffered to my care due to her FMLA. He denies any active complaints at this time. He had a wound culture done at his last visit which grew Candidia Albicans and VRE. He is also being seen by Infectious Disease. Progress of Wound: No significant changes. He has completed his course of antibiotics. Scheduled to follow up with his surgeon at [facility]. - Physical Exam Vital Signs Temp Pulse Resp BP 98 F 80 16 119/63 08/21/17 11:22 08/21/17 11:22 08/21/17 11:22 08/21/17 11:22 General: Alert, Oriented x3, Cooperative, No apparent distress HEENT: Atraumatic, Normocephalic Oral: Moist Mucosa Neck: Supple Lungs: Normal air movement Skin: Ulcer/ Wound Wound Measurements and Assessment WC - Nurse 1 - General Ulcer Measurement Start: 08/07/17 11:33 Freq: Status: Active Protocol: Activity Type Activity Date Activity User E-Sign Co-Sign Detail Recorded Client Recorded Date Recorded By Document 08/21/17 11:22 [facility] [id number] 08/21/17 11:33 [facility] 08/21/17 11:22 Wound Center Nurse 1 [Ulcer Assessment] #9 Lower Lumbar- Midline -Combined with other wound No -Current Size (cm) - Length 14.6 -Current Size (cm) - Width 5.1 -Current Size (cm) - Depth 1.6 -Total Square Cm 74.46 -Date of Last Picture (Recall this 08/21/17 field) -Photo Taken Yes -Epithelialization None Present -Tunneling No -Undermining/Tunneling Yes -Undermining/Tunneling Starts (O' 10 clock) -Undermining/Tunneling Ends (O'clock) 2 -Maximum Distance (cm) 1.2 -Exudate Amt Small (1-33%) -Exudate Type Serosanguineous -Wound Margin Distinct, Outline Attached -Granulation Amt Medium (34-66%) -Granulation Quality [place] -Slough/Fibrin Yes -Necrosis Amt Medium (34-66%) -Necrotic Tissue Type Adherent Slough -Texture (Uma-wound Skin Appearance) Scarring -Moisture (Uma-wound Skin Appearance Dry/Scaly ) -Color (Uma-wound Skin Appearance) Assessed -Temperature (Uma-wound Skin No Abnormality Appearance) (Pt Warm) -Tenderness on Palpation (Uma-wound Yes Skin Appearance) -Ulcer Cleansing Rinsed/ Irrigated with Saline -Foul Odor after Cleansing No -Anesthetic Used 4% Lidocaine Solution WC - Nurse 2 - General Ulcer CM Notes Start: 08/07/17 11:33 Freq: Status: Active Protocol: Activity Type Activity Date Activity User E-Sign Co-Sign Detail Recorded Client Recorded Date Recorded By Document 08/21/17 12:31 MW [id number] 08/21/17 12:37 MW 08/21/17 12:31 Wound Center Nurse 2 [Procedure/Treatment] -Time 12:31 -Correct Patient Yes -Correct Side, Site, Position Yes -Correct Procedure Yes -Procedure Performed Yes -Type of Procedure Debridement -Clinical Debridement Subcutaneous -Post Debridement Size (cm) - Length 14.7 -Post Debridement Size (cm) - Width 5.0 -Post Debridement Size (cm) - Depth 1.0 -Total Square Cm 73.50 -Wound/Ulcer Outcome Not Healed -Ulcer Cleansing Rinsed/ Irrigated with Saline -Foul Odor after Cleansing No -Bioengineered Tissue No -Bleeding Controlled with Pressure Silver Nitrate -Treatment Response Procedure Tolerated Well [See Physician Procedure note for Specifics] Pain Scale: 0-10 Numeric [Pain] -Is Patient Pain Free? Yes Musculoskeletal: No Muscle Wasting Neurological: Cranial nerves II-XII grossly intact Debridement Note Post-Debridement Measurements/Treatment WC - Nurse 2 - General Ulcer CM Notes Start: 08/07/17 11:33 Freq: Status: Active Protocol: Activity Type Activity Date Activity User E-Sign Co-Sign Detail Recorded Client Recorded Date Recorded By Document 08/07/17 12:36 DV [id number] 08/07/17 12:43 DV Document 08/21/17 12:31 MW [id number] 08/21/17 12:37 MW 08/07/17 08/21/17 12:36 12:31 Wound Center Nurse 2 #9 Lower Lumbar- Midline -Time 12:36 12:31 -Correct Patient Yes Yes -Correct Side, Site, Position Yes Yes -Correct Procedure Yes Yes -Procedure Performed Yes Yes -Type of Procedure Debridement Debridement -Clinical Debridement Subcutaneous Subcutaneous -Post Debridement Size (cm) - Length 14.0 14.7 -Post Debridement Size (cm) - Width 4.8 5.0 -Post Debridement Size (cm) - Depth 1.3 1.0 -Total Square Cm 67.20 73.50 -Wound/Ulcer Outcome Not Healed Not Healed -Ulcer Cleansing Rinsed/ Rinsed/ Irrigated with Irrigated with Saline Saline -Foul Odor after Cleansing No No -Bioengineered Tissue No No -Bleeding Controlled with Silver Nitrate Pressure Silver Nitrate -Treatment Response Procedure Procedure Tolerated Well Tolerated Well Pain Scale: 0-10 Numeric Is Patient Pain Free? Yes Yes Wound debrided: Midline Psoterior Lumbar Ulcer Wound Grade/Stage: Stage III Anesthesia Used: 4% Lidocaine Solution Depth: Down to and including healthy tissue, in the subcutaneous layer Percentage of wound debrided: 100 Instrument Used: 7mm curette Tissue Removed: SLough and Devitalized tissude Severity: Fat Layer Exposed Amount of bleeding with debridement: Mild Bleeding Controlled with: Pressure, Silver Nitrate Patient tolerated procedure well Assessment/Plan Active Problems (Last Updated 07/17/17 @ 16:04 by Marzena Jackson) Nonhealing surgical wound (Chronic) Open wound of lower back (Chronic) Assessment: chronic surgical wound dehiscence lumbar with complex abscess and recent surgical debridement. malnutrition. other multiple comorbidities. edema bilateral lower extremities. venous insufficiency. immunocompromised status. Plan: No significant change in the past week. Dr. downing's input appreciated. Debrideemnt done as documented above. Procedure was well tolerated. Continue wound Vac. Continue high protein diet. Follow up in 1 week.
--- NOTE | 2017-08-21 23:37 | PN.PCM_ITS ---
(1) Nonhealing surgical wound Status: Chronic Current Visit: Yes Qualifiers: Code(s): T81.89XA - Other complications of procedures, not elsewhere classified , initial encounter (2) Open wound of lower back Status: Chronic Current Visit: Yes Code(s): S31.000A - Unspecified open wound of lower back and pelvis without penetration into retroperitoneum, initial encounter (3) Osteomyelitis of lumbar spine Status: Chronic Current Visit: No Code(s): M46.26 - Osteomyelitis of vertebra, lumbar region Type of Wound Date of Service: 08/21/17 Chief Complaint: Nonhealing surgical wound of lower back History of Wound: Mr. Marshall is a 72-yo who has been sen here at the wound center for a nonhealing surgical wound of his lower back s/p surgical debridement for an abscess s/p lumbar spine surgery. His original surgery on his lower back was approximately 18 months ago and he has had multiple complications since that time. He underwent surgical debridement on 03/04/[address] Davila at [facility] in [place] and was discharged with a wound vac for healing by secondary intention with possible muscle flap closure in the future. He followed up with his surgeon on 04/18/17 for further evaluation and recommendations and they plan to close the wound with a muscle flap. He had previously been seen by Dr. Wick however, he was transffered to my care due to her FMLA. He denies any active complaints at this time. He had a wound culture done at his last visit which grew Candidia Albicans and VRE. He is also being seen by Infectious Disease. Progress of Wound: No significant changes. He has completed his course of antibiotics. Scheduled to follow up with his surgeon at [facility]. - Physical Exam Vital Signs Temp Pulse Resp BP 98 F 80 16 119/63 08/21/17 11:22 08/21/17 11:22 08/21/17 11:22 08/21/17 11:22 General: Alert, Oriented x3, Cooperative, No apparent distress HEENT: Atraumatic, Normocephalic Oral: Moist Mucosa Neck: Supple Lungs: Normal air movement Skin: Ulcer/ Wound Wound Measurements and Assessment WC - Nurse 1 - General Ulcer Measurement Start: 08/07/17 11:33 Freq: Status: Active Protocol: Activity Type Activity Date Activity User E-Sign Co-Sign Detail Recorded Client Recorded Date Recorded By Document 08/21/17 11:22 [facility] [id number] 08/21/17 11:33 [facility] 08/21/17 11:22 Wound Center Nurse 1 [Ulcer Assessment] #9 Lower Lumbar- Midline -Combined with other wound No -Current Size (cm) - Length 14.6 -Current Size (cm) - Width 5.1 -Current Size (cm) - Depth 1.6 -Total Square Cm 74.46 -Date of Last Picture (Recall this 08/21/17 field) -Photo Taken Yes -Epithelialization None Present -Tunneling No -Undermining/Tunneling Yes -Undermining/Tunneling Starts (O' 10 clock) -Undermining/Tunneling Ends (O'clock) 2 -Maximum Distance (cm) 1.2 -Exudate Amt Small (1-33%) -Exudate Type Serosanguineous -Wound Margin Distinct, Outline Attached -Granulation Amt Medium (34-66%) -Granulation Quality [place] -Slough/Fibrin Yes -Necrosis Amt Medium (34-66%) -Necrotic Tissue Type Adherent Slough -Texture (Uma-wound Skin Appearance) Scarring -Moisture (Uma-wound Skin Appearance Dry/Scaly ) -Color (Uma-wound Skin Appearance) Assessed -Temperature (Uma-wound Skin No Abnormality Appearance) (Pt Warm) -Tenderness on Palpation (Uma-wound Yes Skin Appearance) -Ulcer Cleansing Rinsed/ Irrigated with Saline -Foul Odor after Cleansing No -Anesthetic Used 4% Lidocaine Solution WC - Nurse 2 - General Ulcer CM Notes Start: 08/07/17 11:33 Freq: Status: Active Protocol: Activity Type Activity Date Activity User E-Sign Co-Sign Detail Recorded Client Recorded Date Recorded By Document 08/21/17 12:31 MW [id number] 08/21/17 12:37 MW 08/21/17 12:31 Wound Center Nurse 2 [Procedure/Treatment] -Time 12:31 -Correct Patient Yes -Correct Side, Site, Position Yes -Correct Procedure Yes -Procedure Performed Yes -Type of Procedure Debridement -Clinical Debridement Subcutaneous -Post Debridement Size (cm) - Length 14.7 -Post Debridement Size (cm) - Width 5.0 -Post Debridement Size (cm) - Depth 1.0 -Total Square Cm 73.50 -Wound/Ulcer Outcome Not Healed -Ulcer Cleansing Rinsed/ Irrigated with Saline -Foul Odor after Cleansing No -Bioengineered Tissue No -Bleeding Controlled with Pressure Silver Nitrate -Treatment Response Procedure Tolerated Well [See Physician Procedure note for Specifics] Pain Scale: 0-10 Numeric [Pain] -Is Patient Pain Free? Yes Musculoskeletal: No Muscle Wasting Neurological: Cranial nerves II-XII grossly intact Debridement Note Post-Debridement Measurements/Treatment WC - Nurse 2 - General Ulcer CM Notes Start: 08/07/17 11:33 Freq: Status: Active Protocol: Activity Type Activity Date Activity User E-Sign Co-Sign Detail Recorded Client Recorded Date Recorded By Document 08/07/17 12:36 DV [id number] 08/07/17 12:43 DV Document 08/21/17 12:31 MW [id number] 08/21/17 12:37 MW 08/07/17 08/21/17 12:36 12:31 Wound Center Nurse 2 #9 Lower Lumbar- Midline -Time 12:36 12:31 -Correct Patient Yes Yes -Correct Side, Site, Position Yes Yes -Correct Procedure Yes Yes -Procedure Performed Yes Yes -Type of Procedure Debridement Debridement -Clinical Debridement Subcutaneous Subcutaneous -Post Debridement Size (cm) - Length 14.0 14.7 -Post Debridement Size (cm) - Width 4.8 5.0 -Post Debridement Size (cm) - Depth 1.3 1.0 -Total Square Cm 67.20 73.50 -Wound/Ulcer Outcome Not Healed Not Healed -Ulcer Cleansing Rinsed/ Rinsed/ Irrigated with Irrigated with Saline Saline -Foul Odor after Cleansing No No -Bioengineered Tissue No No -Bleeding Controlled with Silver Nitrate Pressure Silver Nitrate -Treatment Response Procedure Procedure Tolerated Well Tolerated Well Pain Scale: 0-10 Numeric Is Patient Pain Free? Yes Yes Wound debrided: Midline Psoterior Lumbar Ulcer Wound Grade/Stage: Stage III Anesthesia Used: 4% Lidocaine Solution Depth: Down to and including healthy tissue, in the subcutaneous layer Percentage of wound debrided: 100 Instrument Used: 7mm curette Tissue Removed: SLough and Devitalized tissude Severity: Fat Layer Exposed Amount of bleeding with debridement: Mild Bleeding Controlled with: Pressure, Silver Nitrate Patient tolerated procedure well Assessment/Plan Active Problems (Last Updated 07/17/17 @ 16:04 by Marzena Jackson) Nonhealing surgical wound (Chronic) Open wound of lower back (Chronic) Assessment: chronic surgical wound dehiscence lumbar with complex abscess and recent surgical debridement. malnutrition. other multiple comorbidities. edema bilateral lower extremities. venous insufficiency. immunocompromised status. Plan: No significant change in the past week. Dr. downing's input appreciated. Debrideemnt done as documented above. Procedure was well tolerated. Continue wound Vac. Continue high protein diet. Follow up in 1 week.
[2017-08-28 11:43] VITALS: BP 132/50; PULSE 71; RESP 18; TEMP 36.2; BMI 56.5
--- NOTE | 2017-08-28 12:03 | PCM.WC.PN ---
(1) Nonhealing surgical wound Status: Chronic Current Visit: Yes Qualifiers: Code(s): T81.89XA - Other complications of procedures, not elsewhere classified, initial encounter (2) Open wound of lower back Status: Chronic Current Visit: Yes Code(s): S31.000A - Unspecified open wound of lower back and pelvis without penetration into retroperitoneum, initial encounter (3) Osteomyelitis of lumbar spine Status: Chronic Current Visit: No Code(s): M46.26 - Osteomyelitis of vertebra, lumbar region Type of Wound Date of Service: 08/28/17 Chief Complaint: Nonhealing surgical wound of lower back History of Wound: Mr. Marshall is a 72-yo who has been sen here at the wound center for a nonhealing surgical wound of his lower back s/p surgical debridement for an abscess s/p lumbar spine surgery. His original surgery on his lower back was approximately 18 months ago and he has had multiple complications since that time. He underwent surgical debridement on 03/04/[address] Davila at [facility] in [place] and was discharged with a wound vac for healing by secondary intention with possible muscle flap closure in the future. He followed up with his surgeon on 04/18/17 for further evaluation and recommendations and they plan to close the wound with a muscle flap. He had previously been seen by Dr. Wick however, he was transffered to my care due to her FMLA. He denies any active complaints at this time. He had a wound culture done at his last visit which grew Candidia Albicans and VRE. He is also being seen by Infectious Disease. Progress of Wound: No significant changes. He has completed his course of antibiotics. Scheduled to follow up with his surgeon at [facility] tomorrow - Physical Exam Vital Signs Temp Pulse Resp BP 97.1 F L 71 18 132/50 H 08/28/17 11:43 08/28/17 11:43 08/28/17 11:43 08/28/17 11:43 General: Alert, Oriented x3, Cooperative, No apparent distress HEENT: Atraumatic, Normocephalic Oral: Moist Mucosa Neck: Supple Lungs: Normal air movement Cardiovascular: Regular rate Skin: Ulcer/ Wound Wound Measurements and Assessment WC - Nurse 1 - General Ulcer Measurement Start: 08/07/17 11:33 Freq: Status: Active Protocol: Activity Type Activity Date Activity User E-Sign Co-Sign Detail Recorded Client Recorded Date Recorded By Document 08/28/17 11:43 DV [id number] 08/28/17 11:54 DV 08/28/17 11:43 Wound Center Nurse 1 [Ulcer Assessment] #9 Lower Lumbar- Midline -Combined with other wound No -Current Size (cm) - Length 15.0 -Current Size (cm) - Width 4.9 -Current Size (cm) - Depth 0.6 -Total Square Cm 73.50 -Photo Taken No -Epithelialization Small 1-33% -Tunneling No -Undermining/Tunneling No -Circular Undermining No -Classification - Thickness Full Thickness without Exposed Support Structure -Wound Margin Distinct, Outline Attached -Granulation Amt Small (1-33%) -Granulation Quality [place] -Slough/Fibrin Yes -Necrosis Amt Large (67-100%) -Necrotic Tissue Type Adherent Slough -Structure Exposed N/A -Texture (Uma-wound Skin Appearance) Assessed Scarring -Moisture (Uma-wound Skin Appearance Assessed ) Weeping -Color (Uma-wound Skin Appearance) Assessed Mottled -Temperature (Uma-wound Skin No Abnormality Appearance) (Pt Warm) -Ulcer Cleansing Rinsed/ Irrigated with Saline -Foul Odor after Cleansing No -Anesthetic Used 5% Lidocaine Gel WC - Nurse 2 - General Ulcer CM Notes Start: 08/07/17 11:33 Freq: Status: Active Protocol: Activity Type Activity Date Activity User E-Sign Co-Sign Detail Recorded Client Recorded Date Recorded By Document 08/28/17 11:54 DV [id number] 08/28/17 12:01 DV 08/28/17 11:54 Wound Center Nurse 2 [Procedure/Treatment] -Time 11:54 -Correct Patient Yes -Correct Side, Site, Position Yes -Correct Procedure Yes -Procedure Performed Yes -Type of Procedure Debridement -Clinical Debridement Subcutaneous -Post Debridement Size (cm) - Length 15.0 -Post Debridement Size (cm) - Width 4.8 -Post Debridement Size (cm) - Depth 0.8 -Total Square Cm 72.00 -Wound/Ulcer Outcome Not Healed -Ulcer Cleansing Rinsed/ Irrigated with Saline -Foul Odor after Cleansing No -Bioengineered Tissue No -Bleeding Controlled with Pressure -Treatment Response Procedure Tolerated Well [See Physician Procedure note for Specifics] Pain Scale: 0-10 Numeric [Pain] -Is Patient Pain Free? Yes Musculoskeletal: No Muscle Wasting Neurological: Cranial nerves II-XII grossly intact Psych/Mental Status: Normal Affect Debridement Note Post-Debridement Measurements/Treatment WC - Nurse 2 - General Ulcer CM Notes Start: 08/07/17 11:33 Freq: Status: Active Protocol: Activity Type Activity Date Activity User E-Sign Co-Sign Detail Recorded Client Recorded Date Recorded By Document 08/07/17 12:36 DV [id number] 08/07/17 12:43 DV Document 08/21/17 12:31 MW [id number] 08/21/17 12:37 MW Document 08/28/17 11:54 DV [id number] 08/28/17 12:01 DV 08/07/17 08/21/17 08/28/17 12:36 12:31 11:54 Wound Center Nurse 2 #9 Lower Lumbar- Midline -Time 12:36 12:31 11:54 -Correct Patient Yes Yes Yes -Correct Side, Site, Position Yes Yes Yes -Correct Procedure Yes Yes Yes -Procedure Performed Yes Yes Yes -Type of Procedure Debridement Debridement Debridement -Clinical Debridement Subcutaneous Subcutaneous Subcutaneous -Post Debridement Size (cm) - Length 14.0 14.7 15.0 -Post Debridement Size (cm) - Width 4.8 5.0 4.8 -Post Debridement Size (cm) - Depth 1.3 1.0 0.8 -Total Square Cm 67.20 73.50 72.00 -Wound/Ulcer Outcome Not Healed Not Healed Not Healed -Ulcer Cleansing Rinsed/ Rinsed/ Rinsed/ Irrigated with Irrigated with Irrigated with Saline Saline Saline -Foul Odor after Cleansing No No No -Bioengineered Tissue No No No -Bleeding Controlled with Silver Nitrate Pressure Pressure Silver Nitrate -Treatment Response Procedure Procedure Procedure Tolerated Well Tolerated Well Tolerated Well Pain Scale: 0-10 Numeric Is Patient Pain Free? Yes Yes Yes Wound debrided: Posterior lumbar ulcer ( Midline ) Wound Grade/Stage: Stage II Anesthesia Used: 4% Lidocaine Solution, 5% Lidocaine Gel Depth: Down to and including healthy tissue, in the subcutaneous layer Percentage of wound debrided: 100 Instrument Used: 7mm curette Tissue Removed: Biofilm, slough and devitalized tissue Severity: Fat Layer Exposed Amount of bleeding with debridement: Mild Bleeding Controlled with: Pressure Patient tolerated procedure well Assessment/Plan Active Problems (Last Reviewed 08/27/17 @ 10:52 by Marzena Jackson) Nonhealing surgical wound (Chronic) Open wound of lower back (Chronic) Assessment: chronic surgical wound dehiscence lumbar with complex abscess and recent surgical debridement. malnutrition. other multiple comorbidities. edema bilateral lower extremities. venous insufficiency. immunocompromised status. Plan: No significant change in the past week. Debridement done as documented above. Procedure was well tolerated. Wet to dry for now and resume wound Vac on saturday after visit with Surgeon at [facility]. Continue high protein diet. Follow up in 1 week.
--- NOTE | 2017-08-28 12:06 | PN.PCM_ITS ---
(1) Nonhealing surgical wound Status: Chronic Current Visit: Yes Qualifiers: Code(s): T81.89XA - Other complications of procedures, not elsewhere classified , initial encounter (2) Open wound of lower back Status: Chronic Current Visit: Yes Code(s): S31.000A - Unspecified open wound of lower back and pelvis without penetration into retroperitoneum, initial encounter (3) Osteomyelitis of lumbar spine Status: Chronic Current Visit: No Code(s): M46.26 - Osteomyelitis of vertebra, lumbar region Type of Wound Date of Service: 08/28/17 Chief Complaint: Nonhealing surgical wound of lower back History of Wound: Mr. Marshall is a 72-yo who has been sen here at the wound center for a nonhealing surgical wound of his lower back s/p surgical debridement for an abscess s/p lumbar spine surgery. His original surgery on his lower back was approximately 18 months ago and he has had multiple complications since that time. He underwent surgical debridement on 03/04/[address] Davila at [facility] in [place] and was discharged with a wound vac for healing by secondary intention with possible muscle flap closure in the future. He followed up with his surgeon on 04/18/17 for further evaluation and recommendations and they plan to close the wound with a muscle flap. He had previously been seen by Dr. Wick however, he was transffered to my care due to her FMLA. He denies any active complaints at this time. He had a wound culture done at his last visit which grew Candidia Albicans and VRE. He is also being seen by Infectious Disease. Progress of Wound: No significant changes. He has completed his course of antibiotics. Scheduled to follow up with his surgeon at [facility] tomorrow - Physical Exam Vital Signs Temp Pulse Resp BP 97.1 F L 71 18 132/50 H 08/28/17 11:43 08/28/17 11:43 08/28/17 11:43 08/28/17 11:43 General: Alert, Oriented x3, Cooperative, No apparent distress HEENT: Atraumatic, Normocephalic Oral: Moist Mucosa Neck: Supple Lungs: Normal air movement Cardiovascular: Regular rate Skin: Ulcer/ Wound Wound Measurements and Assessment WC - Nurse 1 - General Ulcer Measurement Start: 08/07/17 11:33 Freq: Status: Active Protocol: Activity Type Activity Date Activity User E-Sign Co-Sign Detail Recorded Client Recorded Date Recorded By Document 08/28/17 11:43 DV [id number] 08/28/17 11:54 DV 08/28/17 11:43 Wound Center Nurse 1 [Ulcer Assessment] #9 Lower Lumbar- Midline -Combined with other wound No -Current Size (cm) - Length 15.0 -Current Size (cm) - Width 4.9 -Current Size (cm) - Depth 0.6 -Total Square Cm 73.50 -Photo Taken No -Epithelialization Small 1-33% -Tunneling No -Undermining/Tunneling No -Circular Undermining No -Classification - Thickness Full Thickness without Exposed Support Structure -Wound Margin Distinct, Outline Attached -Granulation Amt Small (1-33%) -Granulation Quality [place] Red -Slough/Fibrin Yes -Necrosis Amt Large (67-100%) -Necrotic Tissue Type Adherent Slough -Structure Exposed N/A -Texture (Uma-wound Skin Appearance) Assessed Scarring -Moisture (Uma-wound Skin Appearance Assessed ) Weeping -Color (Uma-wound Skin Appearance) Assessed Mottled -Temperature (Uma-wound Skin No Abnormality Appearance) (Pt Warm) -Ulcer Cleansing Rinsed/ Irrigated with Saline -Foul Odor after Cleansing No -Anesthetic Used 5% Lidocaine Gel WC - Nurse 2 - General Ulcer CM Notes Start: 08/07/17 11:33 Freq: Status: Active Protocol: Activity Type Activity Date Activity User E-Sign Co-Sign Detail Recorded Client Recorded Date Recorded By Document 08/28/17 11:54 DV [id number] 08/28/17 12:01 DV 08/28/17 11:54 Wound Center Nurse 2 [Procedure/Treatment] -Time 11:54 -Correct Patient Yes -Correct Side, Site, Position Yes -Correct Procedure Yes -Procedure Performed Yes -Type of Procedure Debridement -Clinical Debridement Subcutaneous -Post Debridement Size (cm) - Length 15.0 -Post Debridement Size (cm) - Width 4.8 -Post Debridement Size (cm) - Depth 0.8 -Total Square Cm 72.00 -Wound/Ulcer Outcome Not Healed -Ulcer Cleansing Rinsed/ Irrigated with Saline -Foul Odor after Cleansing No -Bioengineered Tissue No -Bleeding Controlled with Pressure -Treatment Response Procedure Tolerated Well [See Physician Procedure note for Specifics] Pain Scale: 0-10 Numeric [Pain] -Is Patient Pain Free? Yes Musculoskeletal: No Muscle Wasting Neurological: Cranial nerves II-XII grossly intact Psych/Mental Status: Normal Affect Debridement Note Post-Debridement Measurements/Treatment WC - Nurse 2 - General Ulcer CM Notes Start: 08/07/17 11:33 Freq: Status: Active Protocol: Activity Type Activity Date Activity User E-Sign Co-Sign Detail Recorded Client Recorded Date Recorded By Document 08/07/17 12:36 DV [id number] 08/07/17 12:43 DV Document 08/21/17 12:31 MW [id number] 08/21/17 12:37 MW Document 08/28/17 11:54 DV [id number] 08/28/17 12:01 DV 08/07/17 08/21/17 08/28/17 12:36 12:31 11:54 Wound Center Nurse 2 #9 Lower Lumbar- Midline -Time 12:36 12:31 11:54 -Correct Patient Yes Yes Yes -Correct Side, Site, Position Yes Yes Yes -Correct Procedure Yes Yes Yes -Procedure Performed Yes Yes Yes -Type of Procedure Debridement Debridement Debridement -Clinical Debridement Subcutaneous Subcutaneous Subcutaneous -Post Debridement Size (cm) - Length 14.0 14.7 15.0 -Post Debridement Size (cm) - Width 4.8 5.0 4.8 -Post Debridement Size (cm) - Depth 1.3 1.0 0.8 -Total Square Cm 67.20 73.50 72.00 -Wound/Ulcer Outcome Not Healed Not Healed Not Healed -Ulcer Cleansing Rinsed/ Rinsed/ Rinsed/ Irrigated with Irrigated with Irrigated with Saline Saline Saline -Foul Odor after Cleansing No No No -Bioengineered Tissue No No No -Bleeding Controlled with Silver Nitrate Pressure Pressure Silver Nitrate -Treatment Response Procedure Procedure Procedure Tolerated Well Tolerated Well Tolerated Well Pain Scale: 0-10 Numeric Is Patient Pain Free? Yes Yes Yes Wound debrided: Posterior lumbar ulcer ( Midline ) Wound Grade/Stage: Stage II Anesthesia Used: 4% Lidocaine Solution, 5% Lidocaine Gel Depth: Down to and including healthy tissue, in the subcutaneous layer Percentage of wound debrided: 100 Instrument Used: 7mm curette Tissue Removed: Biofilm, slough and devitalized tissue Severity: Fat Layer Exposed Amount of bleeding with debridement: Mild Bleeding Controlled with: Pressure Patient tolerated procedure well Assessment/Plan Active Problems (Last Reviewed 08/27/17 @ 10:52 by Marzena Jackson) Nonhealing surgical wound (Chronic) Open wound of lower back (Chronic) Assessment: chronic surgical wound dehiscence lumbar with complex abscess and recent surgical debridement. malnutrition. other multiple comorbidities. edema bilateral lower extremities. venous insufficiency. immunocompromised status. Plan: No significant change in the past week. Debridement done as documented above. Procedure was well tolerated. Wet to dry for now and resume wound Vac on saturday after visit with Surgeon at [facility]. Continue high protein diet. Follow up in 1 week.
== END 2017-09-02 23:59 ==
LOC: WC 11:00
PROVIDERS: Family Provider Family Medicine; PCP Family Medicine; Visit Provider Internal Medicine
DX: T81.31XA Disruption of external operation (surgical) wound, not elsewhere classified, initial encounter (principal); Y83.8 Other surgical procedures as the cause of abnormal reaction of the patient, or of later complication, without mention of misadventure at the time of the procedure; M46.26 Osteomyelitis of vertebra, lumbar region
CPT/HCPCS: 11042; 11045; 97605; 99213; G0463

== ENCOUNTER → 2017-08-30 12:02 | Outpatient (CLI) | payer MEDICARE, OTHER, SELFPAY ==
[2015-10-31 10:00] VITALS: BMI 34.9
== END ==
PROVIDERS: Visit Provider Family Medicine
DX: T81.4XXA Infection following a procedure, initial encounter (principal); A41.9 Sepsis, unspecified organism; G06.2 Extradural and subdural abscess, unspecified
CPT/HCPCS: 87070; 87077; 87186; 87205

== ENCOUNTER → 2017-09-03 10:53 | Outpatient (CLI) | payer MEDICARE, OTHER, SELFPAY ==
[2015-10-31 10:00] VITALS: BMI 34.9
[2017-09-03 10:55] VITALS: BP 113/62; PULSE 74; RESP 16; TEMP 36.6; O2SAT 98; BMI 23.6
[2017-09-03 11:23] LABS: Hematocrit 26.9 % (40-54); Hemoglobin 8.5 g/dl (13.0-16.5)
[2017-09-03 11:44] LABS: Albumin, Serum 2.8 g/dL (3.2-5.0); BUN 53 mg/dL (7-18); BUN/Creat Ratio 25.5 RATIO (10-20); Calcium,Total 9.4 mg/dL (8.5-10.1); Chloride 101 mmol/L (98-107); Creatinine, Serum 2.08 mg/dL (0.70-1.30); EST Glomerular Filtration Rate 33 mL/min (>60); Est Glom Filt Rate - Afr Amer 40 mL/min (>60); Ferritin 233 ng/mL (26-388); Glucose 75 mg/dL (74-106); Iron 63 ug/dL (65-175); Iron Binding Capacity,Total 232 ug/dL (250-450); PERCENT IRON SATURATION 27.2 % (15.0-55.0); Phosphorus 3.5 mg/dL (2.5-4.9); Potassium 4.2 mmol/L (3.5-5.1); Sodium Level 136 mmol/L (136-145)
== END ==
PROVIDERS: Family Provider Family Medicine; PCP Family Medicine; Visit Provider Internal Medicine Nephrology
DX: N18.3 Chronic kidney disease, stage 3 (moderate) (principal); D63.1 Anemia in chronic kidney disease
CPT/HCPCS: 36415; 80069; 82728; 83540; 83550; 85014; 85018; 96372; J0885

== ENCOUNTER → 2017-09-17 10:22 | Outpatient (CLI) | payer MEDICARE, OTHER, SELFPAY ==
[2015-10-31 10:00] VITALS: BMI 34.9
[2017-09-17 10:56] LABS: Absolute Lymphocyte Count 1.23 X10^3/ul (0.83-4.51); Absolute Neutrophil Count 3.4 X10^3/uL (2.0-7.7); Basophil# 0.03 X10^3/uL; Basophil% 0.5 % (0-1); Eosinophil# 0.34 X10^3/uL; Eosinophils% 5.5 % (0-5); Hematocrit 27.9 % (40-54); Lymphocyte # 1.23 X10^3/ul (4.0); Mean Corp Hgb Conc 32.3 g/gl (32-36); Mean Corpuscular Hgb 33.1 pg (27.0-32.0); Mean Corpuscular Volume 102.6 fL (80-94); Mean Platelet Vol. 9.1 fl (6.2-12.0); Monocyte# 1.11 X10^3/uL; Neutrophil # 3.43 X10^3/uL (2.7-7.7); Neutrophil % 55.8 % (47-70); POSITIVE COUNT NO; POSITIVE DIFFERENTIAL NO; POSITIVE MORPHOLOGY NO; Platelet Count 345 K/mm3 (150-450); RBC Distribution Width CV 15.2 % (11.6-14.6); RBC Distribution Width SD 55.2 fl (35.1-43.9); Red Blood Count 2.72 M/mm3 (4.6-6.2); White Blood Count 6.2 K/mm3 (4.4-11.0)
[2017-09-17 11:07] VITALS: BP 96/45; PULSE 70; RESP 16; TEMP 36.9; BMI 24.9
== END ==
PROVIDERS: Family Provider Family Medicine; PCP Family Medicine; Visit Provider Internal Medicine Nephrology
DX: N18.3 Chronic kidney disease, stage 3 (moderate) (principal); D63.1 Anemia in chronic kidney disease
CPT/HCPCS: 96372; 85025; J0885

== ENCOUNTER → 2017-10-01 10:25 | Outpatient (CLI) | payer MEDICARE, OTHER, SELFPAY ==
[2015-10-31 10:00] VITALS: BMI 34.9
[2017-10-01 10:49] LABS: Hematocrit 30.5 % (40-54); Hemoglobin 9.7 g/dl (13.0-16.5)
[2017-10-01 11:10] LABS: BUN 36 mg/dL (7-18); BUN/Creat Ratio 20.6 RATIO (10-20); Calcium,Total 8.7 mg/dL (8.5-10.1); Chloride 101 mmol/L (98-107); Creatinine, Serum 1.75 mg/dL (0.70-1.30); EST Glomerular Filtration Rate 41 mL/min (>60); Est Glom Filt Rate - Afr Amer 49 mL/min (>60); Glucose 91 mg/dL (74-106); Phosphorus 2.8 mg/dL (2.5-4.9); Potassium 3.7 mmol/L (3.5-5.1); Sodium Level 137 mmol/L (136-145)
[2017-10-01 11:22] VITALS: BP 114/61; PULSE 67; RESP 16; TEMP 36.9; O2SAT 98
== END ==
PROVIDERS: Family Provider Family Medicine; PCP Family Medicine; Visit Provider Internal Medicine Nephrology
DX: N18.3 Chronic kidney disease, stage 3 (moderate) (principal); D63.1 Anemia in chronic kidney disease
CPT/HCPCS: 80069; 85014; 85018; 96372; J0885

== ENCOUNTER 2017-10-02 09:00 | Outpatient (RCR) | payer MEDICARE, OTHER, SELFPAY ==
[2015-10-31 10:00] VITALS: BMI 34.9
[2017-09-03 00:30] VITALS: BP 126/65; PULSE 71; RESP 18; TEMP 36.2; BMI 56.5
[2017-09-05 10:54] VITALS: BP 106/48; PULSE 75; RESP 16; TEMP 36.4; BMI 56.5
--- NOTE | 2017-09-05 18:11 | PCM.WC.PN ---
(1) Open wound of lower back Status: Chronic Current Visit: No Code(s): S31.000A - Unspecified open wound of lower back and pelvis without penetration into retroperitoneum, initial encounter (2) Nonhealing surgical wound Status: Chronic Current Visit: No Qualifiers: Code(s): T81.89XA - Other complications of procedures, not elsewhere classified, initial encounter (3) Chronic diastolic (congestive) heart failure Status: Chronic Current Visit: No Code(s): I50.32 - Chronic diastolic (congestive) heart failure (4) Chronic kidney disease Status: Chronic Current Visit: No Qualifiers: Code(s): N18.9 - Chronic kidney disease, unspecified Type of Wound Date of Service: 09/05/17 Chief Complaint: Nonhealing surgical wound of lower back History of Wound: Mr. Marshall is a 72-yo who has been sen here at the wound center for a nonhealing surgical wound of his lower back s/p surgical debridement for an abscess s/p lumbar spine surgery. His original surgery on his lower back was approximately 18 months ago and he has had multiple complications since that time. He underwent surgical debridement on 03/04/[address] Davila at [facility] in [place] and was discharged with a wound vac for healing by secondary intention with possible muscle flap closure in the future. He followed up with his surgeon on 04/18/17 for further evaluation and recommendations and they plan to close the wound with a muscle flap. He had previously been seen by Dr. Wick however, he was transffered to my care due to her FMLA. He denies any active complaints at this time. He had a wound culture done at his last visit which grew Candidia Albicans and VRE. He is also being seen by Infectious Disease. Progress of Wound: Followed up with plastic surgeon at [facility] at that visit was noted to have copious greenish discharge. Cultures done at that visit was positive for Pseudomonas and MSSA. He has been subsequently started on levofloxacin. - Physical Exam Vital Signs Temp Pulse Resp BP 97.5 F L 75 16 106/48 L 09/05/17 10:54 09/05/17 10:54 09/05/17 10:54 09/05/17 10:54 General: Alert, Oriented x3, Cooperative, No apparent distress HEENT: Atraumatic, Normocephalic Oral: Moist Mucosa Neck: Supple Lungs: Normal air movement Cardiovascular: Regular rate Extremities: No cyanosis Skin: Ulcer/ Wound Wound Measurements and Assessment WC - Nurse 1 - General Ulcer Measurement Start: 09/05/17 10:54 Freq: Status: Active Protocol: Activity Type Activity Date Activity User E-Sign Co-Sign Detail Recorded Client Recorded Date Recorded By Document 09/05/17 10:54 [facility] [id number] 09/05/17 11:02 [facility] 09/05/17 10:54 Wound Center Nurse 1 [Ulcer Assessment] #9 Lower Lumbar- Midline -Combined with other wound No -Current Size (cm) - Length 14.5 -Current Size (cm) - Width 4.2 -Current Size (cm) - Depth 0.6 -Total Square Cm 60.90 -Photo Taken No -Epithelialization None Present -Tunneling No -Undermining/Tunneling Yes -Undermining/Tunneling Starts (O' 6 clock) -Undermining/Tunneling Ends (O'clock) 2 -Maximum Distance (cm) 1.6 -Circular Undermining No -Exudate Amt Medium (34-66%) -Exudate Type Serosanguineous -Wound Margin Distinct, Outline Attached -Granulation Amt Medium (34-66%) -Granulation Quality [place] -Slough/Fibrin Yes -Necrosis Amt Medium (34-66%) -Necrotic Tissue Type Adherent Slough -Texture (Uma-wound Skin Appearance) Scarring -Moisture (Uma-wound Skin Appearance Dry/Scaly ) -Color (Uma-wound Skin Appearance) Erythema -Temperature (Uma-wound Skin No Abnormality Appearance) (Pt Warm) -Tenderness on Palpation (Uma-wound Yes Skin Appearance) -Ulcer Cleansing Rinsed/ Irrigated with Saline -Foul Odor after Cleansing No -Anesthetic Used 4% Lidocaine Solution WC - Nurse 2 - General Ulcer CM Notes Start: 09/05/17 10:54 Freq: Status: Active Protocol: Activity Type Activity Date Activity User E-Sign Co-Sign Detail Recorded Client Recorded Date Recorded By Document 09/05/17 11:42 DV [id number] 09/05/17 11:50 DV 09/05/17 11:42 Wound Center Nurse 2 [Procedure/Treatment] -Time 11:43 -Correct Patient Yes -Correct Side, Site, Position Yes -Correct Procedure Yes -Procedure Performed Yes -Type of Procedure Debridement -Clinical Debridement Subcutaneous -Post Debridement Size (cm) - Length 14.6 -Post Debridement Size (cm) - Width 4.8 -Post Debridement Size (cm) - Depth 1.3 -Total Square Cm 70.08 -Wound/Ulcer Outcome Not Healed -Ulcer Cleansing Rinsed/ Irrigated with Saline -Foul Odor after Cleansing No -Bioengineered Tissue No -Bleeding Controlled with Pressure -Treatment Response Procedure Tolerated Well [See Physician Procedure note for Specifics] Pain Scale: 0-10 Numeric [Pain] -Is Patient Pain Free? Yes Musculoskeletal: No Muscle Wasting Neurological: Cranial nerves II-XII grossly intact Psych/Mental Status: Normal Affect Debridement Note Post-Debridement Measurements/Treatment WC - Nurse 2 - General Ulcer CM Notes Start: 09/05/17 10:54 Freq: Status: Active Protocol: Activity Type Activity Date Activity User E-Sign Co-Sign Detail Recorded Client Recorded Date Recorded By Document 09/05/17 11:42 DV [id number] 09/05/17 11:50 DV 09/05/17 11:42 Wound Center Nurse 2 #9 Lower Lumbar- Midline -Time 11:43 -Correct Patient Yes -Correct Side, Site, Position Yes -Correct Procedure Yes -Procedure Performed Yes -Type of Procedure Debridement -Clinical Debridement Subcutaneous -Post Debridement Size (cm) - Length 14.6 -Post Debridement Size (cm) - Width 4.8 -Post Debridement Size (cm) - Depth 1.3 -Total Square Cm 70.08 -Wound/Ulcer Outcome Not Healed -Ulcer Cleansing Rinsed/ Irrigated with Saline -Foul Odor after Cleansing No -Bioengineered Tissue No -Bleeding Controlled with Pressure -Treatment Response Procedure Tolerated Well Pain Scale: 0-10 Numeric Is Patient Pain Free? Yes Wound debrided: Posterior Lumbar ( Midline ) Ulcer/Surgical wound Wound Grade/Stage: Stage III Type of Debridement: Excisional debridement Anesthesia Used: 4% Lidocaine Solution Depth: Down to and including healthy tissue, in the subcutaneous layer Percentage of wound debrided: 100 Instrument Used: 5mm curette Tissue Removed: Slough and devitalized tissue Severity: Fat Layer Exposed Amount of bleeding with debridement: Mild Bleeding Controlled with: Pressure Patient tolerated procedure well Assessment/Plan Assessment: chronic surgical wound dehiscence lumbar with complex abscess and recent surgical debridement. malnutrition. other multiple comorbidities. edema bilateral lower extremities. venous insufficiency. immunocompromised status. Plan: He did follow-up in his plastic surgeon at [facility] last week and cultures done at that visit as stated above. Has been started on antibiotics per ID recommendations. Possibly repeat culture after completing antibiotics. Debridement done as documented above. Procedure was well-tolerated. Continue wound VAC, to be changed every other day. Advised patient and his on 0 manipulations of the wound VAC. Advised to call the wound center if they have any problems with a wound VAC to limit contamination of the wound surface. Continue high protein diet. Follow up in 1 week. This note was generated with [employer] dictation software. It may contain incorrect words, spelling, and punctuation that were not noted in checking the note before signing.
--- NOTE | 2017-09-05 18:17 | PN.PCM_ITS ---
(1) Open wound of lower back Status: Chronic Current Visit: No Code(s): S31.000A - Unspecified open wound of lower back and pelvis without penetration into retroperitoneum, initial encounter (2) Nonhealing surgical wound Status: Chronic Current Visit: No Qualifiers: Code(s): T81.89XA - Other complications of procedures, not elsewhere classified , initial encounter (3) Chronic diastolic (congestive) heart failure Status: Chronic Current Visit: No Code(s): I50.32 - Chronic diastolic ( congestive) heart failure (4) Chronic kidney disease Status: Chronic Current Visit: No Qualifiers: Code(s): N18.9 - Chronic kidney disease, unspecified Type of Wound Date of Service: 09/05/17 Chief Complaint: Nonhealing surgical wound of lower back History of Wound: Mr. Marshall is a 72-yo who has been sen here at the wound center for a nonhealing surgical wound of his lower back s/p surgical debridement for an abscess s/p lumbar spine surgery. His original surgery on his lower back was approximately 18 months ago and he has had multiple complications since that time. He underwent surgical debridement on 03/04/[address] Davila at [facility] in [place] and was discharged with a wound vac for healing by secondary intention with possible muscle flap closure in the future. He followed up with his surgeon on 04/18/17 for further evaluation and recommendations and they plan to close the wound with a muscle flap. He had previously been seen by Dr. Wick however, he was transffered to my care due to her FMLA. He denies any active complaints at this time. He had a wound culture done at his last visit which grew Candidia Albicans and VRE. He is also being seen by Infectious Disease. Progress of Wound: Followed up with plastic surgeon at [facility] at that visit was noted to have copious greenish discharge. Cultures done at that visit was positive for Pseudomonas and MSSA. He has been subsequently started on levofloxacin. - Physical Exam Vital Signs Temp Pulse Resp BP 97.5 F L 75 16 106/48 L 09/05/17 10:54 09/05/17 10:54 09/05/17 10:54 09/05/17 10:54 General: Alert, Oriented x3, Cooperative, No apparent distress HEENT: Atraumatic, Normocephalic Oral: Moist Mucosa Neck: Supple Lungs: Normal air movement Cardiovascular: Regular rate Extremities: No cyanosis Skin: Ulcer/ Wound Wound Measurements and Assessment WC - Nurse 1 - General Ulcer Measurement Start: 09/05/17 10:54 Freq: Status: Active Protocol: Activity Type Activity Date Activity User E-Sign Co-Sign Detail Recorded Client Recorded Date Recorded By Document 09/05/17 10:54 [facility] [id number] 09/05/17 11:02 [facility] 09/05/17 10:54 Wound Center Nurse 1 [Ulcer Assessment] #9 Lower Lumbar- Midline -Combined with other wound No -Current Size (cm) - Length 14.5 -Current Size (cm) - Width 4.2 -Current Size (cm) - Depth 0.6 -Total Square Cm 60.90 -Photo Taken No -Epithelialization None Present -Tunneling No -Undermining/Tunneling Yes -Undermining/Tunneling Starts (O' 6 clock) -Undermining/Tunneling Ends (O'clock) 2 -Maximum Distance (cm) 1.6 -Circular Undermining No -Exudate Amt Medium (34-66%) -Exudate Type Serosanguineous -Wound Margin Distinct, Outline Attached -Granulation Amt Medium (34-66%) -Granulation Quality [place] -Slough/Fibrin Yes -Necrosis Amt Medium (34-66%) -Necrotic Tissue Type Adherent Slough -Texture (Uma-wound Skin Appearance) Scarring -Moisture (Uma-wound Skin Appearance Dry/Scaly ) -Color (Uma-wound Skin Appearance) Erythema -Temperature (Uma-wound Skin No Abnormality Appearance) (Pt Warm) -Tenderness on Palpation (Uma-wound Yes Skin Appearance) -Ulcer Cleansing Rinsed/ Irrigated with Saline -Foul Odor after Cleansing No -Anesthetic Used 4% Lidocaine Solution WC - Nurse 2 - General Ulcer CM Notes Start: 09/05/17 10:54 Freq: Status: Active Protocol: Activity Type Activity Date Activity User E-Sign Co-Sign Detail Recorded Client Recorded Date Recorded By Document 09/05/17 11:42 DV [id number] 09/05/17 11:50 DV 09/05/17 11:42 Wound Center Nurse 2 [Procedure/Treatment] -Time 11:43 -Correct Patient Yes -Correct Side, Site, Position Yes -Correct Procedure Yes -Procedure Performed Yes -Type of Procedure Debridement -Clinical Debridement Subcutaneous -Post Debridement Size (cm) - Length 14.6 -Post Debridement Size (cm) - Width 4.8 -Post Debridement Size (cm) - Depth 1.3 -Total Square Cm 70.08 -Wound/Ulcer Outcome Not Healed -Ulcer Cleansing Rinsed/ Irrigated with Saline -Foul Odor after Cleansing No -Bioengineered Tissue No -Bleeding Controlled with Pressure -Treatment Response Procedure Tolerated Well [See Physician Procedure note for Specifics] Pain Scale: 0-10 Numeric [Pain] -Is Patient Pain Free? Yes Musculoskeletal: No Muscle Wasting Neurological: Cranial nerves II-XII grossly intact Psych/Mental Status: Normal Affect Debridement Note Post-Debridement Measurements/Treatment WC - Nurse 2 - General Ulcer CM Notes Start: 09/05/17 10:54 Freq: Status: Active Protocol: Activity Type Activity Date Activity User E-Sign Co-Sign Detail Recorded Client Recorded Date Recorded By Document 09/05/17 11:42 DV [id number] 09/05/17 11:50 DV 09/05/17 11:42 Wound Center Nurse 2 #9 Lower Lumbar- Midline -Time 11:43 -Correct Patient Yes -Correct Side, Site, Position Yes -Correct Procedure Yes -Procedure Performed Yes -Type of Procedure Debridement -Clinical Debridement Subcutaneous -Post Debridement Size (cm) - Length 14.6 -Post Debridement Size (cm) - Width 4.8 -Post Debridement Size (cm) - Depth 1.3 -Total Square Cm 70.08 -Wound/Ulcer Outcome Not Healed -Ulcer Cleansing Rinsed/ Irrigated with Saline -Foul Odor after Cleansing No -Bioengineered Tissue No -Bleeding Controlled with Pressure -Treatment Response Procedure Tolerated Well Pain Scale: 0-10 Numeric Is Patient Pain Free? Yes Wound debrided: Posterior Lumbar ( Midline ) Ulcer/Surgical wound Wound Grade/Stage: Stage III Type of Debridement: Excisional debridement Anesthesia Used: 4% Lidocaine Solution Depth: Down to and including healthy tissue, in the subcutaneous layer Percentage of wound debrided: 100 Instrument Used: 5mm curette Tissue Removed: Slough and devitalized tissue Severity: Fat Layer Exposed Amount of bleeding with debridement: Mild Bleeding Controlled with: Pressure Patient tolerated procedure well Assessment/Plan Assessment: chronic surgical wound dehiscence lumbar with complex abscess and recent surgical debridement. malnutrition. other multiple comorbidities. edema bilateral lower extremities. venous insufficiency. immunocompromised status. Plan: He did follow-up in his plastic surgeon at [facility] last week and cultures done at that visit as stated above. Has been started on antibiotics per ID recommendations. Possibly repeat culture after completing antibiotics. Debridement done as documented above. Procedure was well-tolerated. Continue wound VAC, to be changed every other day. Advised patient and his on 0 manipulations of the wound VAC. Advised to call the wound center if they have any problems with a wound VAC to limit contamination of the wound surface. Continue high protein diet. Follow up in 1 week. This note was generated with [employer] dictation software. It may contain incorrect words, spelling, and punctuation that were not noted in checking the note before signing.
--- NOTE | 2017-09-05 21:16 | PCM.PN.ID ---
Subjective: Feeling ok, but c/o pain across lower back. Saw plastic surgeon at [facility], told wound was infected; had wound vac off for a few days around the time of the appt. Wound cx done, turned (+) for PsA and MSSA. Levaquin started 2 days ago, has taken one dose, tolerating well so far. No fever, no n/v/d. Frustrated about repeated infections. - Physical Exam General: Alert, Cooperative, No apparent distress Lungs: Clear to auscultation, Normal air movement Cardiovascular: Regular rate, Regular Rhythm Abdomen: Soft, Non Tender, Non-Distended Skin: Ulcer/ Wound - Lumbar spine wound with no drainage, mild surrounding erythema Vital Signs Temp Pulse Resp BP 97.5 F L 75 16 106/48 L 09/05/17 10:54 09/05/17 10:54 09/05/17 10:54 09/05/17 10:54 Oxygen Delivery Method Room Air Weight: 168.8 kg Body Mass Index (BMI) 56.5 Medical Necessity - Tobacco Use Smoking Status: Former smoker Tobacco Use: Non-smoker Route of nutrition/ use of supplements: [] Nutritional Intake: [] IV Site: [] Garcia Catheter: [] - Assessment/Plan Antibiotics: [] Assessment/Plan: [] 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 Now cxs with PsA and MSSA. Having new organisms show up again raises concern for ongoing contamination of the wound. On levaquin for 2 week course. Not clear if wound care would be better at [facility], and pt wishes to remain at home. I think seeing plastic surgery here would make coordination of surgery easier in order to take advantage of periods without active infection. Will follow, d/w Dr. Hills.
--- NOTE | 2017-09-05 21:25 | PN.ID_ITS ---
Subjective: Feeling ok, but c/o pain across lower back. Saw plastic surgeon at [facility], told wound was infected; had wound vac off for a few days around the time of the appt. Wound cx done, turned (+) for PsA and MSSA. Levaquin started 2 days ago , has taken one dose, tolerating well so far. No fever, no n/v/d. Frustrated about repeated infections. - Physical Exam General: Alert, Cooperative, No apparent distress Lungs: Clear to auscultation, Normal air movement Cardiovascular: Regular rate, Regular Rhythm Abdomen: Soft, Non Tender, Non-Distended Skin: Ulcer/ Wound - Lumbar spine wound with no drainage, mild surrounding erythema Vital Signs Temp Pulse Resp BP 97.5 F L 75 16 106/48 L 09/05/17 10:54 09/05/17 10:54 09/05/17 10:54 09/05/17 10:54 Oxygen Delivery Method Room Air Weight: 168.8 kg Body Mass Index (BMI) 56.5 Medical Necessity - Tobacco Use Smoking Status: Former smoker Tobacco Use: Non-smoker Route of nutrition/ use of supplements: [] Nutritional Intake: [] IV Site: [] Garcia Catheter: [] - Assessment/Plan Antibiotics: [] Assessment/Plan: [] 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 Now cxs with PsA and MSSA. Having new organisms show up again raises concern for ongoing contamination of the wound. On levaquin for 2 week course. Not clear if wound care would be better at [facility], and pt wishes to remain at home. I think seeing plastic surgery here would make coordination of surgery easier in order to take advantage of periods without active infection. Will follow, d/w Dr. Hills.
[2017-09-11 11:06] VITALS: BP 129/70; PULSE 79; RESP 18; TEMP 36.6; BMI 56.5
--- NOTE | 2017-09-11 17:36 | PCM.WC.PN ---
(1) Open wound of lower back Status: Chronic Current Visit: No Code(s): S31.000A - Unspecified open wound of lower back and pelvis without penetration into retroperitoneum, initial encounter (2) Nonhealing surgical wound Status: Chronic Current Visit: No Qualifiers: Code(s): T81.89XA - Other complications of procedures, not elsewhere classified, initial encounter (3) Chronic diastolic (congestive) heart failure Status: Chronic Current Visit: No Code(s): I50.32 - Chronic diastolic (congestive) heart failure (4) Chronic kidney disease Status: Chronic Current Visit: No Qualifiers: Code(s): N18.9 - Chronic kidney disease, unspecified Type of Wound Date of Service: 09/11/17 Chief Complaint: Nonhealing surgical wound of lower back History of Wound: Mr. Marshall is a 72-yo who has been sen here at the wound center for a nonhealing surgical wound of his lower back s/p surgical debridement for an abscess s/p lumbar spine surgery. His original surgery on his lower back was approximately 18 months ago and he has had multiple complications since that time. He underwent surgical debridement on 03/04/[address] Davila at [facility] in [place] and was discharged with a wound vac for healing by secondary intention with possible muscle flap closure in the future. He followed up with his surgeon on 04/18/17 for further evaluation and recommendations and they plan to close the wound with a muscle flap. He had previously been seen by Dr. Wick however, he was transffered to my care due to her FMLA. He denies any active complaints at this time. He had a wound culture done at his last visit which grew Candidia Albicans and VRE. He is also being seen by Infectious Disease. Progress of Wound: Stable. No greenish drainage noted over the past week. - Physical Exam Vital Signs Temp Pulse Resp BP 97.8 F 79 18 129/70 H 09/11/17 11:06 09/11/17 11:06 09/11/17 11:06 09/11/17 11:06 General: Alert, Oriented x3, Cooperative, No apparent distress HEENT: Atraumatic, Normocephalic Oral: Moist Mucosa Neck: Supple Lungs: Normal air movement Cardiovascular: Regular rate Extremities: No cyanosis Skin: Ulcer/ Wound Wound Measurements and Assessment WC - Nurse 1 - General Ulcer Measurement Start: 09/05/17 10:54 Freq: Status: Active Protocol: Activity Type Activity Date Activity User E-Sign Co-Sign Detail Recorded Client Recorded Date Recorded By Document 09/11/17 11:06 RENITA [id number] 09/11/17 11:08 RENITA 09/11/17 11:06 Wound Center Nurse 1 [Ulcer Assessment] #9 Lower Lumbar- Midline -Combined with other wound No -Current Size (cm) - Length 14.0 -Current Size (cm) - Width 4.2 -Current Size (cm) - Depth 1.2 -Total Square Cm 58.80 -Photo Taken Yes -Epithelialization None Present -Tunneling No -Undermining/Tunneling No -Circular Undermining No -Exudate Amt Medium (34-66%) -Exudate Type Serosanguineous -Wound Margin Flat & Intact -Granulation Amt Medium (34-66%) -Granulation Quality Red -Slough/Fibrin Yes -Necrosis Amt Small (1-33%) -Necrotic Tissue Type Adherent Slough -Structure Exposed N/A -Texture (Uma-wound Skin Appearance) Assessed Scarring -Moisture (Uma-wound Skin Appearance Assessed ) Dry/Scaly -Color (Uma-wound Skin Appearance) Assessed -Temperature (Uma-wound Skin No Abnormality Appearance) (Pt Warm) -Tenderness on Palpation (Uma-wound No Skin Appearance) -Ulcer Cleansing Wound Cleanser -Foul Odor after Cleansing No -Anesthetic Used 4% Lidocaine Solution [Edema Assessment] -Lower Limb Edema Present NA - Nurse 2 - General Ulcer CM Notes Start: 09/05/17 10:54 Freq: Status: Active Protocol: Activity Type Activity Date Activity User E-Sign Co-Sign Detail Recorded Client Recorded Date Recorded By Document 09/11/17 11:47 DV [id number] 09/11/17 11:48 DV 09/11/17 11:47 Wound Center Nurse 2 [Procedure/Treatment] #9 Lower Lumbar- Midline -Time 11:47 -Correct Patient Yes -Correct Side, Site, Position Yes -Correct Procedure Yes -Procedure Performed Yes -Type of Procedure Debridement -Clinical Debridement Subcutaneous -Post Debridement Size (cm) - Length 13.8 -Post Debridement Size (cm) - Width 4.8 -Post Debridement Size (cm) - Depth 1.0 -Total Square Cm 66.24 -Wound/Ulcer Outcome Not Healed -Ulcer Cleansing Rinsed/ Irrigated with Saline -Foul Odor after Cleansing No -Bioengineered Tissue No -Bleeding Controlled with Pressure -Treatment Response Procedure Tolerated Well [See Physician Procedure note for Specifics] Pain Scale: 0-10 Numeric [Pain] -Is Patient Pain Free? Yes Musculoskeletal: No Muscle Wasting Neurological: Cranial nerves II-XII grossly intact Psych/Mental Status: Normal Affect Debridement Note Post-Debridement Measurements/Treatment WC - Nurse 2 - General Ulcer CM Notes Start: 09/05/17 10:54 Freq: Status: Active Protocol: Activity Type Activity Date Activity User E-Sign Co-Sign Detail Recorded Client Recorded Date Recorded By Document 09/05/17 11:42 DV [id number] 09/05/17 11:50 DV Document 09/11/17 11:47 DV [id number] 09/11/17 11:48 DV 09/05/17 09/11/17 11:42 11:47 Wound Center Nurse 2 #9 Lower Lumbar- Midline -Time 11:43 11:47 -Correct Patient Yes Yes -Correct Side, Site, Position Yes Yes -Correct Procedure Yes Yes -Procedure Performed Yes Yes -Type of Procedure Debridement Debridement -Clinical Debridement Subcutaneous Subcutaneous -Post Debridement Size (cm) - Length 14.6 13.8 -Post Debridement Size (cm) - Width 4.8 4.8 -Post Debridement Size (cm) - Depth 1.3 1.0 -Total Square Cm 70.08 66.24 -Wound/Ulcer Outcome Not Healed Not Healed -Ulcer Cleansing Rinsed/ Rinsed/ Irrigated with Irrigated with Saline Saline -Foul Odor after Cleansing No No -Bioengineered Tissue No No -Bleeding Controlled with Pressure Pressure -Treatment Response Procedure Procedure Tolerated Well Tolerated Well Pain Scale: 0-10 Numeric Is Patient Pain Free? Yes Yes Wound debrided: Posterior lumbar ulcer Wound Grade/Stage: Stage III Type of Debridement: Excisional debridement Anesthesia Used: 4% Lidocaine Solution Depth: Down to and including healthy tissue, in the subcutaneous layer Percentage of wound debrided: 100 Instrument Used: 7mm curette Tissue Removed: Slough and devitalized tissue Severity: Fat Layer Exposed Amount of bleeding with debridement: Mild Bleeding Controlled with: Pressure Patient tolerated procedure well Assessment/Plan Assessment: chronic surgical wound dehiscence lumbar with complex abscess and recent surgical debridement. malnutrition. other multiple comorbidities. edema bilateral lower extremities. venous insufficiency. immunocompromised status. Plan: No significant drainage in the past week. Still on on Abx. Wound bed with better granulation tissue. Debridement done as documented above. Procedure was well-tolerated. Continue wound VAC, to be changed every other day. Advised patient and his on 0 manipulations of the wound VAC. Advised to call the wound center if they have any problems with the wound VAC to limit contamination of the wound surface. Continue high protein diet. Follow up in 1 week. This note was generated with [employer] dictation software. It may contain incorrect words, spelling, and punctuation that were not noted in checking the note before signing.
--- NOTE | 2017-09-11 17:39 | PN.PCM_ITS ---
(1) Open wound of lower back Status: Chronic Current Visit: No Code(s): S31.000A - Unspecified open wound of lower back and pelvis without penetration into retroperitoneum, initial encounter (2) Nonhealing surgical wound Status: Chronic Current Visit: No Qualifiers: Code(s): T81.89XA - Other complications of procedures, not elsewhere classified , initial encounter (3) Chronic diastolic (congestive) heart failure Status: Chronic Current Visit: No Code(s): I50.32 - Chronic diastolic ( congestive) heart failure (4) Chronic kidney disease Status: Chronic Current Visit: No Qualifiers: Code(s): N18.9 - Chronic kidney disease, unspecified Type of Wound Date of Service: 09/11/17 Chief Complaint: Nonhealing surgical wound of lower back History of Wound: Mr. Marshall is a 72-yo who has been sen here at the wound center for a nonhealing surgical wound of his lower back s/p surgical debridement for an abscess s/p lumbar spine surgery. His original surgery on his lower back was approximately 18 months ago and he has had multiple complications since that time. He underwent surgical debridement on 03/04/[address] Davila at [facility] in [place] and was discharged with a wound vac for healing by secondary intention with possible muscle flap closure in the future. He followed up with his surgeon on 04/18/17 for further evaluation and recommendations and they plan to close the wound with a muscle flap. He had previously been seen by Dr. Wick however, he was transffered to my care due to her FMLA. He denies any active complaints at this time. He had a wound culture done at his last visit which grew Candidia Albicans and VRE. He is also being seen by Infectious Disease. Progress of Wound: Stable. No greenish drainage noted over the past week. - Physical Exam Vital Signs Temp Pulse Resp BP 97.8 F 79 18 129/70 H 09/11/17 11:06 09/11/17 11:06 09/11/17 11:06 09/11/17 11:06 General: Alert, Oriented x3, Cooperative, No apparent distress HEENT: Atraumatic, Normocephalic Oral: Moist Mucosa Neck: Supple Lungs: Normal air movement Cardiovascular: Regular rate Extremities: No cyanosis Skin: Ulcer/ Wound Wound Measurements and Assessment WC - Nurse 1 - General Ulcer Measurement Start: 09/05/17 10:54 Freq: Status: Active Protocol: Activity Type Activity Date Activity User E-Sign Co-Sign Detail Recorded Client Recorded Date Recorded By Document 09/11/17 11:06 RENITA [email or web address] 09/11/17 11:08 RENITA 09/11/17 11:06 Wound Center Nurse 1 [Ulcer Assessment] #9 Lower Lumbar- Midline -Combined with other wound No -Current Size (cm) - Length 14.0 -Current Size (cm) - Width 4.2 -Current Size (cm) - Depth 1.2 -Total Square Cm 58.80 -Photo Taken Yes -Epithelialization None Present -Tunneling No -Undermining/Tunneling No -Circular Undermining No -Exudate Amt Medium (34-66%) -Exudate Type Serosanguineous -Wound Margin Flat & Intact -Granulation Amt Medium (34-66%) -Granulation Quality Red -Slough/Fibrin Yes -Necrosis Amt Small (1-33%) -Necrotic Tissue Type Adherent Slough -Structure Exposed N/A -Texture (Uma-wound Skin Appearance) Assessed Scarring -Moisture (Uma-wound Skin Appearance Assessed ) Dry/Scaly -Color (Uma-wound Skin Appearance) Assessed -Temperature (Uma-wound Skin No Abnormality Appearance) (Pt Warm) -Tenderness on Palpation (Uma-wound No Skin Appearance) -Ulcer Cleansing Wound Cleanser -Foul Odor after Cleansing No -Anesthetic Used 4% Lidocaine Solution [Edema Assessment] -Lower Limb Edema Present NA - Nurse 2 - General Ulcer CM Notes Start: 09/05/17 10:54 Freq: Status: Active Protocol: Activity Type Activity Date Activity User E-Sign Co-Sign Detail Recorded Client Recorded Date Recorded By Document 09/11/17 11:47 DV [id number] 09/11/17 11:48 DV 09/11/17 11:47 Wound Center Nurse 2 [Procedure/Treatment] #9 Lower Lumbar- Midline -Time 11:47 -Correct Patient Yes -Correct Side, Site, Position Yes -Correct Procedure Yes -Procedure Performed Yes -Type of Procedure Debridement -Clinical Debridement Subcutaneous -Post Debridement Size (cm) - Length 13.8 -Post Debridement Size (cm) - Width 4.8 -Post Debridement Size (cm) - Depth 1.0 -Total Square Cm 66.24 -Wound/Ulcer Outcome Not Healed -Ulcer Cleansing Rinsed/ Irrigated with Saline -Foul Odor after Cleansing No -Bioengineered Tissue No -Bleeding Controlled with Pressure -Treatment Response Procedure Tolerated Well [See Physician Procedure note for Specifics] Pain Scale: 0-10 Numeric [Pain] -Is Patient Pain Free? Yes Musculoskeletal: No Muscle Wasting Neurological: Cranial nerves II-XII grossly intact Psych/Mental Status: Normal Affect Debridement Note Post-Debridement Measurements/Treatment WC - Nurse 2 - General Ulcer CM Notes Start: 09/05/17 10:54 Freq: Status: Active Protocol: Activity Type Activity Date Activity User E-Sign Co-Sign Detail Recorded Client Recorded Date Recorded By Document 09/05/17 11:42 DV [id number] 09/05/17 11:50 DV Document 09/11/17 11:47 DV [id number] 09/11/17 11:48 DV 09/05/17 09/11/17 11:42 11:47 Wound Center Nurse 2 #9 Lower Lumbar- Midline -Time 11:43 11:47 -Correct Patient Yes Yes -Correct Side, Site, Position Yes Yes -Correct Procedure Yes Yes -Procedure Performed Yes Yes -Type of Procedure Debridement Debridement -Clinical Debridement Subcutaneous Subcutaneous -Post Debridement Size (cm) - Length 14.6 13.8 -Post Debridement Size (cm) - Width 4.8 4.8 -Post Debridement Size (cm) - Depth 1.3 1.0 -Total Square Cm 70.08 66.24 -Wound/Ulcer Outcome Not Healed Not Healed -Ulcer Cleansing Rinsed/ Rinsed/ Irrigated with Irrigated with Saline Saline -Foul Odor after Cleansing No No -Bioengineered Tissue No No -Bleeding Controlled with Pressure Pressure -Treatment Response Procedure Procedure Tolerated Well Tolerated Well Pain Scale: 0-10 Numeric Is Patient Pain Free? Yes Yes Wound debrided: Posterior lumbar ulcer Wound Grade/Stage: Stage III Type of Debridement: Excisional debridement Anesthesia Used: 4% Lidocaine Solution Depth: Down to and including healthy tissue, in the subcutaneous layer Percentage of wound debrided: 100 Instrument Used: 7mm curette Tissue Removed: Slough and devitalized tissue Severity: Fat Layer Exposed Amount of bleeding with debridement: Mild Bleeding Controlled with: Pressure Patient tolerated procedure well Assessment/Plan Assessment: chronic surgical wound dehiscence lumbar with complex abscess and recent surgical debridement. malnutrition. other multiple comorbidities. edema bilateral lower extremities. venous insufficiency. immunocompromised status. Plan: No significant drainage in the past week. Still on on Abx. Wound bed with better granulation tissue. Debridement done as documented above. Procedure was well-tolerated. Continue wound VAC, to be changed every other day. Advised patient and his on 0 manipulations of the wound VAC. Advised to call the wound center if they have any problems with the wound VAC to limit contamination of the wound surface. Continue high protein diet. Follow up in 1 week. This note was generated with [employer] dictation software. It may contain incorrect words, spelling, and punctuation that were not noted in checking the note before signing.
[2017-09-18 12:45] VITALS: BP 133/75; PULSE 93; RESP 20; TEMP 36; BMI 56.5
--- NOTE | 2017-09-18 13:57 | PCM.WC.PN ---
(1) Open wound of lower back Status: Chronic Current Visit: No Code(s): S31.000A - Unspecified open wound of lower back and pelvis without penetration into retroperitoneum, initial encounter (2) Nonhealing surgical wound Status: Chronic Current Visit: No Qualifiers: Code(s): T81.89XA - Other complications of procedures, not elsewhere classified, initial encounter (3) Chronic diastolic (congestive) heart failure Status: Chronic Current Visit: No Code(s): I50.32 - Chronic diastolic (congestive) heart failure (4) Chronic kidney disease Status: Chronic Current Visit: No Qualifiers: Code(s): N18.9 - Chronic kidney disease, unspecified Type of Wound Date of Service: 09/18/17 Chief Complaint: Nonhealing surgical wound of lower back History of Wound: Mr. Marshall is a 72-yo who has been sen here at the wound center for a nonhealing surgical wound of his lower back s/p surgical debridement for an abscess s/p lumbar spine surgery. His original surgery on his lower back was approximately 18 months ago and he has had multiple complications since that time. He underwent surgical debridement on 03/04/[address] Davila at [facility] in [place] and was discharged with a wound vac for healing by secondary intention with possible muscle flap closure in the future. He followed up with his surgeon on 04/18/17 for further evaluation and recommendations and they plan to close the wound with a muscle flap. He had previously been seen by Dr. Wick however, he was transffered to my care due to her FMLA. He denies any active complaints at this time. He had a wound culture done at his last visit which grew Candidia Albicans and VRE. He is also being seen by Infectious Disease. Progress of Wound: Stable. Patient still having problems with the wound vac. He will like a break. - Physical Exam Vital Signs Temp Pulse Resp BP 96.8 F L 93 20 H 133/75 H 09/18/17 12:45 09/18/17 12:45 09/18/17 12:45 09/18/17 12:45 General: Alert, Oriented x3, Cooperative, No apparent distress HEENT: Atraumatic, Normocephalic Oral: Moist Mucosa Neck: Supple Lungs: Normal air movement Cardiovascular: Regular rate Abdomen: Non Tender Extremities: No cyanosis Skin: Ulcer/ Wound Wound Measurements and Assessment WC - Nurse 1 - General Ulcer Measurement Start: 09/05/17 10:54 Freq: Status: Active Protocol: Activity Type Activity Date Activity User E-Sign Co-Sign Detail Recorded Client Recorded Date Recorded By Document 09/18/17 12:45 SELENA [id number] 09/18/17 13:01 SELENA 09/18/17 12:45 Wound Center Nurse 1 [Ulcer Assessment] #9 Lower Lumbar- Midline -Combined with other wound No -Current Size (cm) - Length 14.0 -Current Size (cm) - Width 4.0 -Current Size (cm) - Depth 1.0 -Total Square Cm 56.00 -Date of Last Picture (Recall this 09/11/17 field) -Photo Taken No -Epithelialization None Present -Tunneling No -Undermining/Tunneling Yes -Undermining/Tunneling Starts (O' 6 clock) -Undermining/Tunneling Ends (O'clock) 1 -Maximum Distance (cm) 0.5 -Circular Undermining No -Classification - Thickness Full Thickness without Exposed Support Structure -Change in Wound Grade/Stage No Query Text:If change please identify the Stage/Grade in the comment (ie. S2 G3) -Exudate Amt Small (1-33%) -Exudate Type Serosanguineous -Wound Margin Distinct, Outline Attached -Granulation Amt Medium (34-66%) -Granulation Quality Pale [place] -Slough/Fibrin No -Necrosis Amt None Present (0 %) -Structure Exposed Muscle N/A -Texture (Uma-wound Skin Appearance) No Abnormality -Moisture (Uma-wound Skin Appearance No Abnormality ) -Color (Uma-wound Skin Appearance) No Abnormality -Temperature (Uma-wound Skin No Abnormality Appearance) (Pt Warm) -Tenderness on Palpation (Uma-wound No Skin Appearance) -Ulcer Cleansing Rinsed/ Irrigated with Saline -Foul Odor after Cleansing No -Anesthetic Used 4% Lidocaine Solution [Edema Assessment] -Lower Limb Edema Present NA - Nurse 2 - General Ulcer CM Notes Start: 09/05/17 10:54 Freq: Status: Active Protocol: Activity Type Activity Date Activity User E-Sign Co-Sign Detail Recorded Client Recorded Date Recorded By Document 09/18/17 13:40 DV [id number] 09/18/17 13:48 DV 09/18/17 13:40 Wound Center Nurse 2 [Procedure/Treatment] #9 Lower Lumbar- Midline -Time 13:41 -Correct Patient Yes -Correct Side, Site, Position Yes -Correct Procedure Yes -Procedure Performed Yes -Type of Procedure Debridement -Clinical Debridement Subcutaneous -Post Debridement Size (cm) - Length 13.8 -Post Debridement Size (cm) - Width 4.4 -Post Debridement Size (cm) - Depth 0.1 -Total Square Cm 60.72 -Wound/Ulcer Outcome Not Healed -Ulcer Cleansing Rinsed/ Irrigated with Saline -Foul Odor after Cleansing No -Bioengineered Tissue No -Bleeding Controlled with Pressure -Treatment Response Procedure Tolerated Well [See Physician Procedure note for Specifics] Pain Scale: 0-10 Numeric [Pain] -Is Patient Pain Free? Yes Musculoskeletal: No Muscle Wasting Neurological: Cranial nerves II-XII grossly intact Psych/Mental Status: Normal Affect Debridement Note Post-Debridement Measurements/Treatment WC - Nurse 2 - General Ulcer CM Notes Start: 09/05/17 10:54 Freq: Status: Active Protocol: Activity Type Activity Date Activity User E-Sign Co-Sign Detail Recorded Client Recorded Date Recorded By Document 09/05/17 11:42 DV [id number] 09/05/17 11:50 DV Document 09/11/17 11:47 DV [id number] 09/11/17 11:48 DV Document 09/18/17 13:40 DV [id number] 09/18/17 13:48 DV 09/05/17 09/11/17 09/18/17 11:42 11:47 13:40 Wound Center Nurse 2 #9 Lower Lumbar- Midline -Time 11:43 11:47 13:41 -Correct Patient Yes Yes Yes -Correct Side, Site, Position Yes Yes Yes -Correct Procedure Yes Yes Yes -Procedure Performed Yes Yes Yes -Type of Procedure Debridement Debridement Debridement -Clinical Debridement Subcutaneous Subcutaneous Subcutaneous -Post Debridement Size (cm) - Length 14.6 13.8 13.8 -Post Debridement Size (cm) - Width 4.8 4.8 4.4 -Post Debridement Size (cm) - Depth 1.3 1.0 0.1 -Total Square Cm 70.08 66.24 60.72 -Wound/Ulcer Outcome Not Healed Not Healed Not Healed -Ulcer Cleansing Rinsed/ Rinsed/ Rinsed/ Irrigated with Irrigated with Irrigated with Saline Saline Saline -Foul Odor after Cleansing No No No -Bioengineered Tissue No No No -Bleeding Controlled with Pressure Pressure Pressure -Treatment Response Procedure Procedure Procedure Tolerated Well Tolerated Well Tolerated Well Pain Scale: 0-10 Numeric Is Patient Pain Free? Yes Yes Yes Wound debrided: Posterior Lumbar Ulcer Wound Grade/Stage: Stage III Type of Debridement: Excisional debridement Anesthesia Used: 4% Lidocaine Solution Depth: Down to and including healthy tissue, in the subcutaneous layer Percentage of wound debrided: 100 Instrument Used: 7mm curette Tissue Removed: Slough and devitalized tissue. Severity: Fat Layer Exposed Amount of bleeding with debridement: Mild Bleeding Controlled with: Pressure Patient tolerated procedure well Assessment/Plan Assessment: chronic surgical wound dehiscence lumbar with complex abscess and recent surgical debridement. malnutrition. other multiple comorbidities. edema bilateral lower extremities. venous insufficiency. immunocompromised status. Plan: He has completed his coure of abx. No significant change or discharg appreciated today. Patient hoever has had problems with his wound vac and would like a break. Risk of infections discussed with him. He also wants a second opinion with Dr. Cook. Will set up appointment. He currently follows up with a plastic surgeon at [facility]. Debridement done as documented above. Procedure was well-tolerated. Cultures taken. Continue adaptic to wound base with moistened aqaucel over top. Cover with guaze and drape. Change daily. Good hand hygeine before touching wound. Continue high protein diet. Follow up in 1 week. This note was generated with [employer] software. It may contain incorrect words, spelling, and punctuation that were not noted in checking the note before signing.
--- NOTE | 2017-09-18 14:04 | PN.PCM_ITS ---
(1) Open wound of lower back Status: Chronic Current Visit: No Code(s): S31.000A - Unspecified open wound of lower back and pelvis without penetration into retroperitoneum, initial encounter (2) Nonhealing surgical wound Status: Chronic Current Visit: No Qualifiers: Code(s): T81.89XA - Other complications of procedures, not elsewhere classified , initial encounter (3) Chronic diastolic (congestive) heart failure Status: Chronic Current Visit: No Code(s): I50.32 - Chronic diastolic ( congestive) heart failure (4) Chronic kidney disease Status: Chronic Current Visit: No Qualifiers: Code(s): N18.9 - Chronic kidney disease, unspecified Type of Wound Date of Service: 09/18/17 Chief Complaint: Nonhealing surgical wound of lower back History of Wound: Mr. Marshall is a 72-yo who has been sen here at the wound center for a nonhealing surgical wound of his lower back s/p surgical debridement for an abscess s/p lumbar spine surgery. His original surgery on his lower back was approximately 18 months ago and he has had multiple complications since that time. He underwent surgical debridement on 03/04/[address] Davila at [facility] in [place] and was discharged with a wound vac for healing by secondary intention with possible muscle flap closure in the future. He followed up with his surgeon on 04/18/17 for further evaluation and recommendations and they plan to close the wound with a muscle flap. He had previously been seen by Dr. Wick however, he was transffered to my care due to her FMLA. He denies any active complaints at this time. He had a wound culture done at his last visit which grew Candidia Albicans and VRE. He is also being seen by Infectious Disease. Progress of Wound: Stable. Patient still having problems with the wound vac. He will like a break. - Physical Exam Vital Signs Temp Pulse Resp BP 96.8 F L 93 20 H 133/75 H 09/18/17 12:45 09/18/17 12:45 09/18/17 12:45 09/18/17 12:45 General: Alert, Oriented x3, Cooperative, No apparent distress HEENT: Atraumatic, Normocephalic Oral: Moist Mucosa Neck: Supple Lungs: Normal air movement Cardiovascular: Regular rate Abdomen: Non Tender Extremities: No cyanosis Skin: Ulcer/ Wound Wound Measurements and Assessment WC - Nurse 1 - General Ulcer Measurement Start: 09/05/17 10:54 Freq: Status: Active Protocol: Activity Type Activity Date Activity User E-Sign Co-Sign Detail Recorded Client Recorded Date Recorded By Document 09/18/17 12:45 SELENA [id number] 09/18/17 13:01 SELENA 09/18/17 12:45 Wound Center Nurse 1 [Ulcer Assessment] #9 Lower Lumbar- Midline -Combined with other wound No -Current Size (cm) - Length 14.0 -Current Size (cm) - Width 4.0 -Current Size (cm) - Depth 1.0 -Total Square Cm 56.00 -Date of Last Picture (Recall this 09/11/17 field) -Photo Taken No -Epithelialization None Present -Tunneling No -Undermining/Tunneling Yes -Undermining/Tunneling Starts (O' 6 clock) -Undermining/Tunneling Ends (O'clock) 1 -Maximum Distance (cm) 0.5 -Circular Undermining No -Classification - Thickness Full Thickness without Exposed Support Structure -Change in Wound Grade/Stage No Query Text:If change please identify the Stage/Grade in the comment (ie. S2 G3) -Exudate Amt Small (1-33%) -Exudate Type Serosanguineous -Wound Margin Distinct, Outline Attached -Granulation Amt Medium (34-66%) -Granulation Quality Pale [place] -Slough/Fibrin No -Necrosis Amt None Present (0 %) -Structure Exposed Muscle N/A -Texture (Uma-wound Skin Appearance) No Abnormality -Moisture (Uma-wound Skin Appearance No Abnormality ) -Color (Uma-wound Skin Appearance) No Abnormality -Temperature (Uma-wound Skin No Abnormality Appearance) (Pt Warm) -Tenderness on Palpation (Uma-wound No Skin Appearance) -Ulcer Cleansing Rinsed/ Irrigated with Saline -Foul Odor after Cleansing No -Anesthetic Used 4% Lidocaine Solution [Edema Assessment] -Lower Limb Edema Present NA - Nurse 2 - General Ulcer CM Notes Start: 09/05/17 10:54 Freq: Status: Active Protocol: Activity Type Activity Date Activity User E-Sign Co-Sign Detail Recorded Client Recorded Date Recorded By Document 09/18/17 13:40 DV [id number] 09/18/17 13:48 DV 09/18/17 13:40 Wound Center Nurse 2 [Procedure/Treatment] #9 Lower Lumbar- Midline -Time 13:41 -Correct Patient Yes -Correct Side, Site, Position Yes -Correct Procedure Yes -Procedure Performed Yes -Type of Procedure Debridement -Clinical Debridement Subcutaneous -Post Debridement Size (cm) - Length 13.8 -Post Debridement Size (cm) - Width 4.4 -Post Debridement Size (cm) - Depth 0.1 -Total Square Cm 60.72 -Wound/Ulcer Outcome Not Healed -Ulcer Cleansing Rinsed/ Irrigated with Saline -Foul Odor after Cleansing No -Bioengineered Tissue No -Bleeding Controlled with Pressure -Treatment Response Procedure Tolerated Well [See Physician Procedure note for Specifics] Pain Scale: 0-10 Numeric [Pain] -Is Patient Pain Free? Yes Musculoskeletal: No Muscle Wasting Neurological: Cranial nerves II-XII grossly intact Psych/Mental Status: Normal Affect Debridement Note Post-Debridement Measurements/Treatment WC - Nurse 2 - General Ulcer CM Notes Start: 09/05/17 10:54 Freq: Status: Active Protocol: Activity Type Activity Date Activity User E-Sign Co-Sign Detail Recorded Client Recorded Date Recorded By Document 09/05/17 11:42 DV [id number] 09/05/17 11:50 DV Document 09/11/17 11:47 DV [id number] 09/11/17 11:48 DV Document 09/18/17 13:40 DV [id number] 09/18/17 13:48 DV 09/05/17 09/11/17 09/18/17 11:42 11:47 13:40 Wound Center Nurse 2 #9 Lower Lumbar- Midline -Time 11:43 11:47 13:41 -Correct Patient Yes Yes Yes -Correct Side, Site, Position Yes Yes Yes -Correct Procedure Yes Yes Yes -Procedure Performed Yes Yes Yes -Type of Procedure Debridement Debridement Debridement -Clinical Debridement Subcutaneous Subcutaneous Subcutaneous -Post Debridement Size (cm) - Length 14.6 13.8 13.8 -Post Debridement Size (cm) - Width 4.8 4.8 4.4 -Post Debridement Size (cm) - Depth 1.3 1.0 0.1 -Total Square Cm 70.08 66.24 60.72 -Wound/Ulcer Outcome Not Healed Not Healed Not Healed -Ulcer Cleansing Rinsed/ Rinsed/ Rinsed/ Irrigated with Irrigated with Irrigated with Saline Saline Saline -Foul Odor after Cleansing No No No -Bioengineered Tissue No No No -Bleeding Controlled with Pressure Pressure Pressure -Treatment Response Procedure Procedure Procedure Tolerated Well Tolerated Well Tolerated Well Pain Scale: 0-10 Numeric Is Patient Pain Free? Yes Yes Yes Wound debrided: Posterior Lumbar Ulcer Wound Grade/Stage: Stage III Type of Debridement: Excisional debridement Anesthesia Used: 4% Lidocaine Solution Depth: Down to and including healthy tissue, in the subcutaneous layer Percentage of wound debrided: 100 Instrument Used: 7mm curette Tissue Removed: Slough and devitalized tissue. Severity: Fat Layer Exposed Amount of bleeding with debridement: Mild Bleeding Controlled with: Pressure Patient tolerated procedure well Assessment/Plan Assessment: chronic surgical wound dehiscence lumbar with complex abscess and recent surgical debridement. malnutrition. other multiple comorbidities. edema bilateral lower extremities. venous insufficiency. immunocompromised status. Plan: He has completed his coure of abx. No significant change or discharg appreciated today. Patient hoever has had problems with his wound vac and would like a break. Risk of infections discussed with him. He also wants a second opinion with Dr. Cook. Will set up appointment. He currently follows up with a plastic surgeon at [facility]. Debridement done as documented above. Procedure was well-tolerated. Cultures taken. Continue adaptic to wound base with moistened aqaucel over top. Cover with guaze and drape. Change daily. Good hand hygeine before touching wound. Continue high protein diet. Follow up in 1 week. This note was generated with [employer] software. It may contain incorrect words, spelling, and punctuation that were not noted in checking the note before signing.
--- NOTE | 2017-09-25 11:13 | PCM.WC.PN ---
(1) Open wound of lower back Status: Chronic Current Visit: No Code(s): S31.000A - Unspecified open wound of lower back and pelvis without penetration into retroperitoneum, initial encounter (2) Nonhealing surgical wound Status: Chronic Current Visit: No Qualifiers: Code(s): T81.89XA - Other complications of procedures, not elsewhere classified, initial encounter (3) Chronic diastolic (congestive) heart failure Status: Chronic Current Visit: No Code(s): I50.32 - Chronic diastolic (congestive) heart failure (4) Chronic kidney disease Status: Chronic Current Visit: No Qualifiers: Code(s): N18.9 - Chronic kidney disease, unspecified Type of Wound Date of Service: 09/25/17 Chief Complaint: Nonhealing surgical wound of lower back History of Wound: Mr. Marshall is a 72-yo who has been sen here at the wound center for a nonhealing surgical wound of his lower back s/p surgical debridement for an abscess s/p lumbar spine surgery. His original surgery on his lower back was approximately 18 months ago and he has had multiple complications since that time. He underwent surgical debridement on 03/04/[address] Davila at [facility] in [place] and was discharged with a wound vac for healing by secondary intention with possible muscle flap closure in the future. He followed up with his surgeon on 04/18/17 for further evaluation and recommendations and they plan to close the wound with a muscle flap. He had previously been seen by Dr. Wick however, he was transffered to my care due to her FMLA. He denies any active complaints at this time. He had a wound culture done at his last visit which grew Candidia Albicans and VRE. He is also being seen by Infectious Disease. Progress of Wound: Stable. No new complaints at this time. No increased discharge during the break/holiday. - Physical Exam Vital Signs Temp Pulse Resp BP 96.8 F L 93 20 H 133/75 H 09/18/17 12:45 09/18/17 12:45 09/18/17 12:45 09/18/17 12:45 General: Alert, Oriented x3, Cooperative, No apparent distress HEENT: Atraumatic, Normocephalic Oral: Moist Mucosa Neck: Supple Lungs: Normal air movement Extremities: No cyanosis Skin: Ulcer/ Wound Wound Measurements and Assessment WC - Nurse 2 - General Ulcer CM Notes Start: 09/05/17 10:54 Freq: Status: Active Protocol: Activity Type Activity Date Activity User E-Sign Co-Sign Detail Recorded Client Recorded Date Recorded By Document 09/25/17 08:52 DV [id number] 09/25/17 09:00 DV 09/25/17 08:52 Wound Center Nurse 2 [Procedure/Treatment] #9 Lower Lumbar- Midline -Time 08:53 -Correct Patient Yes -Correct Side, Site, Position Yes -Correct Procedure Yes -Procedure Performed Yes -Type of Procedure Debridement -Clinical Debridement Subcutaneous -Post Debridement Size (cm) - Length 13.8 -Post Debridement Size (cm) - Width 4.6 -Post Debridement Size (cm) - Depth 0.9 -Total Square Cm 63.48 -Wound/Ulcer Outcome Not Healed -Ulcer Cleansing Rinsed/ Irrigated with Saline -Foul Odor after Cleansing No -Bioengineered Tissue No -Bleeding Controlled with NA -Treatment Response Procedure Tolerated Well [See Physician Procedure note for Specifics] Pain Scale: 0-10 Numeric [Pain] -Is Patient Pain Free? Yes Musculoskeletal: No Muscle Wasting Neurological: Cranial nerves II-XII grossly intact Debridement Note Post-Debridement Measurements/Treatment WC - Nurse 2 - General Ulcer CM Notes Start: 09/05/17 10:54 Freq: Status: Active Protocol: Activity Type Activity Date Activity User E-Sign Co-Sign Detail Recorded Client Recorded Date Recorded By Document 09/05/17 11:42 DV [id number] 09/05/17 11:50 DV Document 09/11/17 11:47 DV [id number] 09/11/17 11:48 DV Document 09/18/17 13:40 DV [id number] 09/18/17 13:48 DV Document 09/25/17 08:52 DV [id number] 09/25/17 09:00 DV 09/05/17 09/11/17 09/18/17 11:42 11:47 13:40 Wound Center Nurse 2 #9 Lower Lumbar- Midline -Time 11:43 11:47 13:41 -Correct Patient Yes Yes Yes -Correct Side, Site, Position Yes Yes Yes -Correct Procedure Yes Yes Yes -Procedure Performed Yes Yes Yes -Type of Procedure Debridement Debridement Debridement -Clinical Debridement Subcutaneous Subcutaneous Subcutaneous -Post Debridement Size (cm) - Length 14.6 13.8 13.8 -Post Debridement Size (cm) - Width 4.8 4.8 4.4 -Post Debridement Size (cm) - Depth 1.3 1.0 0.1 -Total Square Cm 70.08 66.24 60.72 -Wound/Ulcer Outcome Not Healed Not Healed Not Healed -Ulcer Cleansing Rinsed/ Rinsed/ Rinsed/ Irrigated with Irrigated with Irrigated with Saline Saline Saline -Foul Odor after Cleansing No No No -Bioengineered Tissue No No No -Bleeding Controlled with Pressure Pressure Pressure -Treatment Response Procedure Procedure Procedure Tolerated Well Tolerated Well Tolerated Well Pain Scale: 0-10 Numeric Is Patient Pain Free? Yes Yes Yes 09/25/17 08:52 Wound Center Nurse 2 #9 Lower Lumbar- Midline -Time 08:53 -Correct Patient Yes -Correct Side, Site, Position Yes -Correct Procedure Yes -Procedure Performed Yes -Type of Procedure Debridement -Clinical Debridement Subcutaneous -Post Debridement Size (cm) - Length 13.8 -Post Debridement Size (cm) - Width 4.6 -Post Debridement Size (cm) - Depth 0.9 -Total Square Cm 63.48 -Wound/Ulcer Outcome Not Healed -Ulcer Cleansing Rinsed/ Irrigated with Saline -Foul Odor after Cleansing No -Bioengineered Tissue No -Bleeding Controlled with NA -Treatment Response Procedure Tolerated Well Pain Scale: 0-10 Numeric Is Patient Pain Free? Yes Wound debrided: Posterior Lumbar Wound Grade/Stage: Stage II Type of Debridement: Excisional debridement Anesthesia Used: 4% Lidocaine Solution Depth: Down to and including healthy tissue, in the subcutaneous layer Percentage of wound debrided: 100 Instrument Used: 7mm curette Tissue Removed: Slough and devitalized tissue Severity: Fat Layer Exposed Amount of bleeding with debridement: Mild Bleeding Controlled with: Pressure Patient tolerated procedure well Assessment/Plan Assessment: chronic surgical wound dehiscence lumbar with complex abscess and recent surgical debridement. malnutrition. other multiple comorbidities. edema bilateral lower extremities. venous insufficiency. immunocompromised status. Plan: No new complaints at this time. Culture done at last visit grew Corynebacterium. No previous growth of this organism. No indication for treatment per ID. Debridement done as documented above. Procedure was well-tolerated. Resume use of wound vac at 125mmHg. Ensure good hygiene and minimal contact with wound. Continue high protein diet. Follow up with Dr. Malys in 1 week. This note was generated with [employer] software. It may contain incorrect words, spelling, and punctuation that were not noted in checking the note before signing.
--- NOTE | 2017-09-25 11:19 | PN.PCM_ITS ---
(1) Open wound of lower back Status: Chronic Current Visit: No Code(s): S31.000A - Unspecified open wound of lower back and pelvis without penetration into retroperitoneum, initial encounter (2) Nonhealing surgical wound Status: Chronic Current Visit: No Qualifiers: Code(s): T81.89XA - Other complications of procedures, not elsewhere classified , initial encounter (3) Chronic diastolic (congestive) heart failure Status: Chronic Current Visit: No Code(s): I50.32 - Chronic diastolic ( congestive) heart failure (4) Chronic kidney disease Status: Chronic Current Visit: No Qualifiers: Code(s): N18.9 - Chronic kidney disease, unspecified Type of Wound Date of Service: 09/25/17 Chief Complaint: Nonhealing surgical wound of lower back History of Wound: Mr. Marshall is a 72-yo who has been sen here at the wound center for a nonhealing surgical wound of his lower back s/p surgical debridement for an abscess s/p lumbar spine surgery. His original surgery on his lower back was approximately 18 months ago and he has had multiple complications since that time. He underwent surgical debridement on 03/04/[address] Davila at [facility] in [place] and was discharged with a wound vac for healing by secondary intention with possible muscle flap closure in the future. He followed up with his surgeon on 04/18/17 for further evaluation and recommendations and they plan to close the wound with a muscle flap. He had previously been seen by Dr. Wick however, he was transffered to my care due to her FMLA. He denies any active complaints at this time. He had a wound culture done at his last visit which grew Candidia Albicans and VRE. He is also being seen by Infectious Disease. Progress of Wound: Stable. No new complaints at this time. No increased discharge during the break/holiday. - Physical Exam Vital Signs Temp Pulse Resp BP 96.8 F L 93 20 H 133/75 H 09/18/17 12:45 09/18/17 12:45 09/18/17 12:45 09/18/17 12:45 General: Alert, Oriented x3, Cooperative, No apparent distress HEENT: Atraumatic, Normocephalic Oral: Moist Mucosa Neck: Supple Lungs: Normal air movement Extremities: No cyanosis Skin: Ulcer/ Wound Wound Measurements and Assessment WC - Nurse 2 - General Ulcer CM Notes Start: 09/05/17 10:54 Freq: Status: Active Protocol: Activity Type Activity Date Activity User E-Sign Co-Sign Detail Recorded Client Recorded Date Recorded By Document 09/25/17 08:52 DV [id number] 09/25/17 09:00 DV 09/25/17 08:52 Wound Center Nurse 2 [Procedure/Treatment] #9 Lower Lumbar- Midline -Time 08:53 -Correct Patient Yes -Correct Side, Site, Position Yes -Correct Procedure Yes -Procedure Performed Yes -Type of Procedure Debridement -Clinical Debridement Subcutaneous -Post Debridement Size (cm) - Length 13.8 -Post Debridement Size (cm) - Width 4.6 -Post Debridement Size (cm) - Depth 0.9 -Total Square Cm 63.48 -Wound/Ulcer Outcome Not Healed -Ulcer Cleansing Rinsed/ Irrigated with Saline -Foul Odor after Cleansing No -Bioengineered Tissue No -Bleeding Controlled with NA -Treatment Response Procedure Tolerated Well [See Physician Procedure note for Specifics] Pain Scale: 0-10 Numeric [Pain] -Is Patient Pain Free? Yes Musculoskeletal: No Muscle Wasting Neurological: Cranial nerves II-XII grossly intact Debridement Note Post-Debridement Measurements/Treatment WC - Nurse 2 - General Ulcer CM Notes Start: 09/05/17 10:54 Freq: Status: Active Protocol: Activity Type Activity Date Activity User E-Sign Co-Sign Detail Recorded Client Recorded Date Recorded By Document 09/05/17 11:42 DV [id number] 09/05/17 11:50 DV Document 09/11/17 11:47 DV [id number] 09/11/17 11:48 DV Document 09/18/17 13:40 DV [id number] 09/18/17 13:48 DV Document 09/25/17 08:52 DV [id number] 09/25/17 09:00 DV 09/05/17 09/11/17 09/18/17 11:42 11:47 13:40 Wound Center Nurse 2 #9 Lower Lumbar- Midline -Time 11:43 11:47 13:41 -Correct Patient Yes Yes Yes -Correct Side, Site, Position Yes Yes Yes -Correct Procedure Yes Yes Yes -Procedure Performed Yes Yes Yes -Type of Procedure Debridement Debridement Debridement -Clinical Debridement Subcutaneous Subcutaneous Subcutaneous -Post Debridement Size (cm) - Length 14.6 13.8 13.8 -Post Debridement Size (cm) - Width 4.8 4.8 4.4 -Post Debridement Size (cm) - Depth 1.3 1.0 0.1 -Total Square Cm 70.08 66.24 60.72 -Wound/Ulcer Outcome Not Healed Not Healed Not Healed -Ulcer Cleansing Rinsed/ Rinsed/ Rinsed/ Irrigated with Irrigated with Irrigated with Saline Saline Saline -Foul Odor after Cleansing No No No -Bioengineered Tissue No No No -Bleeding Controlled with Pressure Pressure Pressure -Treatment Response Procedure Procedure Procedure Tolerated Well Tolerated Well Tolerated Well Pain Scale: 0-10 Numeric Is Patient Pain Free? Yes Yes Yes 09/25/17 08:52 Wound Center Nurse 2 #9 Lower Lumbar- Midline -Time 08:53 -Correct Patient Yes -Correct Side, Site, Position Yes -Correct Procedure Yes -Procedure Performed Yes -Type of Procedure Debridement -Clinical Debridement Subcutaneous -Post Debridement Size (cm) - Length 13.8 -Post Debridement Size (cm) - Width 4.6 -Post Debridement Size (cm) - Depth 0.9 -Total Square Cm 63.48 -Wound/Ulcer Outcome Not Healed -Ulcer Cleansing Rinsed/ Irrigated with Saline -Foul Odor after Cleansing No -Bioengineered Tissue No -Bleeding Controlled with NA -Treatment Response Procedure Tolerated Well Pain Scale: 0-10 Numeric Is Patient Pain Free? Yes Wound debrided: Posterior Lumbar Wound Grade/Stage: Stage II Type of Debridement: Excisional debridement Anesthesia Used: 4% Lidocaine Solution Depth: Down to and including healthy tissue, in the subcutaneous layer Percentage of wound debrided: 100 Instrument Used: 7mm curette Tissue Removed: Slough and devitalized tissue Severity: Fat Layer Exposed Amount of bleeding with debridement: Mild Bleeding Controlled with: Pressure Patient tolerated procedure well Assessment/Plan Assessment: chronic surgical wound dehiscence lumbar with complex abscess and recent surgical debridement. malnutrition. other multiple comorbidities. edema bilateral lower extremities. venous insufficiency. immunocompromised status. Plan: No new complaints at this time. Culture done at last visit grew Corynebacterium. No previous growth of this organism. No indication for treatment per ID. Debridement done as documented above. Procedure was well- tolerated. Resume use of wound vac at 125mmHg. Ensure good hygiene and minimal contact with wound. Continue high protein diet. Follow up with Dr. Malys in 1 week. This note was generated with [employer] software. It may contain incorrect words, spelling, and punctuation that were not noted in checking the note before signing.
[2017-10-02 09:20] VITALS: BP 129/63; PULSE 61; RESP 16; TEMP 36.3; BMI 56.5
--- NOTE | 2017-10-02 10:26 | PCM.WC.PN ---
(1) Open wound of lower back Status: Chronic Current Visit: Yes Code(s): S31.000A - Unspecified open wound of lower back and pelvis without penetration into retroperitoneum, initial encounter (2) Nonhealing surgical wound Status: Chronic Current Visit: Yes Qualifiers: Code(s): T81.89XA - Other complications of procedures, not elsewhere classified, initial encounter (3) Chronic diastolic (congestive) heart failure Status: Chronic Current Visit: No Code(s): I50.32 - Chronic diastolic (congestive) heart failure (4) Chronic kidney disease Status: Chronic Current Visit: No Qualifiers: Code(s): N18.9 - Chronic kidney disease, unspecified Type of Wound Date of Service: 10/02/17 Chief Complaint: Nonhealing surgical wound of lower back History of Wound: Mr. Marshall is a 72-yo who has been sen here at the wound center for a nonhealing surgical wound of his lower back s/p surgical debridement for an abscess s/p lumbar spine surgery. His original surgery on his lower back was approximately 18 months ago and he has had multiple complications since that time. He underwent surgical debridement on 03/04/[address] Davila at [facility] in [place] and was discharged with a wound vac for healing by secondary intention with possible muscle flap closure in the future. He followed up with his surgeon on 04/18/17 for further evaluation and recommendations and they plan to close the wound with a muscle flap. He had previously been seen by Dr. Wick however, he was transffered to my care due to her FMLA. He denies any active complaints at this time. He had a wound culture done at his last visit which grew Candidia Albicans and VRE. He is also being seen by Infectious Disease. Progress of Wound: Stable. No new complaints at this time. He has not had his wound Vac due to probems with his home care over the holiday. - Physical Exam Vital Signs Temp Pulse Resp BP 97.3 F L 61 16 129/63 H 10/02/17 09:20 10/02/17 09:20 10/02/17 09:20 10/02/17 09:20 General: Alert, Oriented x3, Cooperative, No apparent distress HEENT: Atraumatic, Normocephalic Oral: Moist Mucosa Neck: Supple Lungs: Normal air movement Extremities: No cyanosis Skin: Ulcer/ Wound Wound Measurements and Assessment WC - Nurse 1 - General Ulcer Measurement Start: 09/05/17 10:54 Freq: Status: Active Protocol: Activity Type Activity Date Activity User E-Sign Co-Sign Detail Recorded Client Recorded Date Recorded By Document 10/02/17 09:20 [facility] [id number] 10/02/17 09:27 [facility] 10/02/17 09:20 Wound Center Nurse 1 [Ulcer Assessment] #9 Lower Lumbar- Midline -Combined with other wound No -Current Size (cm) - Length 14.2 -Current Size (cm) - Width 4.8 -Current Size (cm) - Depth 1.4 -Total Square Cm 68.16 -Photo Taken No -Epithelialization None Present -Tunneling No -Undermining/Tunneling Yes -Undermining/Tunneling Starts (O' 10 clock) -Undermining/Tunneling Ends (O'clock) 1 -Maximum Distance (cm) 1.1 -Circular Undermining No -Exudate Amt Medium (34-66%) -Exudate Type Serosanguineous -Wound Margin Distinct, Outline Attached -Granulation Amt Small (1-33%) -Granulation Quality Red -Slough/Fibrin Yes -Necrosis Amt Large (67-100%) -Necrotic Tissue Type Adherent Slough -Texture (Uma-wound Skin Appearance) Scarring -Moisture (Uma-wound Skin Appearance Assessed ) -Color (Uma-wound Skin Appearance) Assessed -Temperature (Uma-wound Skin No Abnormality Appearance) (Pt Warm) -Tenderness on Palpation (Uma-wound Yes Skin Appearance) -Ulcer Cleansing Rinsed/ Irrigated with Saline -Foul Odor after Cleansing No -Anesthetic Used 4% Lidocaine Solution WC - Nurse 2 - General Ulcer CM Notes Start: 09/05/17 10:54 Freq: Status: Active Protocol: Activity Type Activity Date Activity User E-Sign Co-Sign Detail Recorded Client Recorded Date Recorded By Document 10/02/17 09:45 DV [id number] 10/02/17 09:48 DV 10/02/17 09:45 Wound Center Nurse 2 [Procedure/Treatment] -Time 09:46 -Correct Patient Yes -Correct Side, Site, Position Yes -Correct Procedure Yes -Procedure Performed Yes -Type of Procedure Debridement -Clinical Debridement Subcutaneous -Post Debridement Size (cm) - Length 14.0 -Post Debridement Size (cm) - Width 4.8 -Post Debridement Size (cm) - Depth 1.0 -Total Square Cm 67.20 -Wound/Ulcer Outcome Not Healed -Ulcer Cleansing Rinsed/ Irrigated with Saline -Foul Odor after Cleansing No -Bioengineered Tissue No -Bleeding Controlled with Pressure Silver Nitrate SURGIFOAM -Treatment Response Procedure Tolerated Well [See Physician Procedure note for Specifics] Pain Scale: 0-10 Numeric [Pain] -Is Patient Pain Free? Yes Musculoskeletal: No Muscle Wasting Neurological: Cranial nerves II-XII grossly intact Psych/Mental Status: Normal Affect Debridement Note Post-Debridement Measurements/Treatment WC - Nurse 2 - General Ulcer CM Notes Start: 09/05/17 10:54 Freq: Status: Active Protocol: Activity Type Activity Date Activity User E-Sign Co-Sign Detail Recorded Client Recorded Date Recorded By Document 09/05/17 11:42 DV [id number] 09/05/17 11:50 DV Document 09/11/17 11:47 DV [id number] 09/11/17 11:48 DV Document 09/18/17 13:40 DV [id number] 09/18/17 13:48 DV Document 09/25/17 08:52 DV [id number] 09/25/17 09:00 DV Document 10/02/17 09:45 DV [id number] 10/02/17 09:48 DV 09/05/17 09/11/17 09/18/17 11:42 11:47 13:40 Wound Center Nurse 2 #9 Lower Lumbar- Midline -Time 11:43 11:47 13:41 -Correct Patient Yes Yes Yes -Correct Side, Site, Position Yes Yes Yes -Correct Procedure Yes Yes Yes -Procedure Performed Yes Yes Yes -Type of Procedure Debridement Debridement Debridement -Clinical Debridement Subcutaneous Subcutaneous Subcutaneous -Post Debridement Size (cm) - Length 14.6 13.8 13.8 -Post Debridement Size (cm) - Width 4.8 4.8 4.4 -Post Debridement Size (cm) - Depth 1.3 1.0 0.1 -Total Square Cm 70.08 66.24 60.72 -Wound/Ulcer Outcome Not Healed Not Healed Not Healed -Ulcer Cleansing Rinsed/ Rinsed/ Rinsed/ Irrigated with Irrigated with Irrigated with Saline Saline Saline -Foul Odor after Cleansing No No No -Bioengineered Tissue No No No -Bleeding Controlled with Pressure Pressure Pressure -Treatment Response Procedure Procedure Procedure Tolerated Well Tolerated Well Tolerated Well Pain Scale: 0-10 Numeric Is Patient Pain Free? Yes Yes Yes 09/25/17 10/02/17 08:52 09:45 Wound Center Nurse 2 #9 Lower Lumbar- Midline -Time 08:53 09:46 -Correct Patient Yes Yes -Correct Side, Site, Position Yes Yes -Correct Procedure Yes Yes -Procedure Performed Yes Yes -Type of Procedure Debridement Debridement -Clinical Debridement Subcutaneous Subcutaneous -Post Debridement Size (cm) - Length 13.8 14.0 -Post Debridement Size (cm) - Width 4.6 4.8 -Post Debridement Size (cm) - Depth 0.9 1.0 -Total Square Cm 63.48 67.20 -Wound/Ulcer Outcome Not Healed Not Healed -Ulcer Cleansing Rinsed/ Rinsed/ Irrigated with Irrigated with Saline Saline -Foul Odor after Cleansing No No -Bioengineered Tissue No No -Bleeding Controlled with NA Pressure Silver Nitrate SURGIFOAM -Treatment Response Procedure Procedure Tolerated Well Tolerated Well Pain Scale: 0-10 Numeric Is Patient Pain Free? Yes Yes Wound debrided: Posterior Lumbar Wound Grade/Stage: Stage II Type of Debridement: Excisional debridement Anesthesia Used: 4% Lidocaine Solution Depth: Down to and including healthy tissue, in the subcutaneous layer Percentage of wound debrided: 100 Instrument Used: 7mm curette Tissue Removed: Slough and devitalized tissue Severity: Fat Layer Exposed Amount of bleeding with debridement: Moderate Bleeding Controlled with: Pressure, Silver Nitrate, Gel Foam Patient tolerated procedure well Assessment/Plan Active Problems (Last Reviewed 08/27/17 @ 10:52 by Marzena Jackson) Nonhealing surgical wound (Chronic) Open wound of lower back (Chronic) Assessment: chronic surgical wound dehiscence lumbar with complex abscess and recent surgical debridement. malnutrition. other multiple comorbidities. edema bilateral lower extremities. venous insufficiency. immunocompromised status. Plan: No new complaints at this time. No wound vac over the last week due to problems with his home health. Significant slough burden noted today. Debridement done as documented above. Procedure was well-tolerated. Cultures taken. Resume use of wound vac at 125mmHg. Ensure good hygiene and minimal contact with wound. Continue high protein diet. Follow up in 1 week. This note was generated with [employer] software. It may contain incorrect words, spelling, and punctuation that were not noted in checking the note before signing.
--- NOTE | 2017-10-02 10:29 | PN.PCM_ITS ---
(1) Open wound of lower back Status: Chronic Current Visit: Yes Code(s): S31.000A - Unspecified open wound of lower back and pelvis without penetration into retroperitoneum, initial encounter (2) Nonhealing surgical wound Status: Chronic Current Visit: Yes Qualifiers: Code(s): T81.89XA - Other complications of procedures, not elsewhere classified , initial encounter (3) Chronic diastolic (congestive) heart failure Status: Chronic Current Visit: No Code(s): I50.32 - Chronic diastolic ( congestive) heart failure (4) Chronic kidney disease Status: Chronic Current Visit: No Qualifiers: Code(s): N18.9 - Chronic kidney disease, unspecified Type of Wound Date of Service: 10/02/17 Chief Complaint: Nonhealing surgical wound of lower back History of Wound: Mr. Marshall is a 72-yo who has been sen here at the wound center for a nonhealing surgical wound of his lower back s/p surgical debridement for an abscess s/p lumbar spine surgery. His original surgery on his lower back was approximately 18 months ago and he has had multiple complications since that time. He underwent surgical debridement on 03/04/[address] Davila at [facility] in [place] and was discharged with a wound vac for healing by secondary intention with possible muscle flap closure in the future. He followed up with his surgeon on 04/18/17 for further evaluation and recommendations and they plan to close the wound with a muscle flap. He had previously been seen by Dr. Wick however, he was transffered to my care due to her FMLA. He denies any active complaints at this time. He had a wound culture done at his last visit which grew Candidia Albicans and VRE. He is also being seen by Infectious Disease. Progress of Wound: Stable. No new complaints at this time. He has not had his wound Vac due to probems with his home care over the holiday. - Physical Exam Vital Signs Temp Pulse Resp BP 97.3 F L 61 16 129/63 H 10/02/17 09:20 10/02/17 09:20 10/02/17 09:20 10/02/17 09:20 General: Alert, Oriented x3, Cooperative, No apparent distress HEENT: Atraumatic, Normocephalic Oral: Moist Mucosa Neck: Supple Lungs: Normal air movement Extremities: No cyanosis Skin: Ulcer/ Wound Wound Measurements and Assessment WC - Nurse 1 - General Ulcer Measurement Start: 09/05/17 10:54 Freq: Status: Active Protocol: Activity Type Activity Date Activity User E-Sign Co-Sign Detail Recorded Client Recorded Date Recorded By Document 10/02/17 09:20 [facility] [id number] 10/02/17 09:27 [facility] 10/02/17 09:20 Wound Center Nurse 1 [Ulcer Assessment] #9 Lower Lumbar- Midline -Combined with other wound No -Current Size (cm) - Length 14.2 -Current Size (cm) - Width 4.8 -Current Size (cm) - Depth 1.4 -Total Square Cm 68.16 -Photo Taken No -Epithelialization None Present -Tunneling No -Undermining/Tunneling Yes -Undermining/Tunneling Starts (O' 10 clock) -Undermining/Tunneling Ends (O'clock) 1 -Maximum Distance (cm) 1.1 -Circular Undermining No -Exudate Amt Medium (34-66%) -Exudate Type Serosanguineous -Wound Margin Distinct, Outline Attached -Granulation Amt Small (1-33%) -Granulation Quality Red -Slough/Fibrin Yes -Necrosis Amt Large (67-100%) -Necrotic Tissue Type Adherent Slough -Texture (Uma-wound Skin Appearance) Scarring -Moisture (Uma-wound Skin Appearance Assessed ) -Color (Uma-wound Skin Appearance) Assessed -Temperature (Uma-wound Skin No Abnormality Appearance) (Pt Warm) -Tenderness on Palpation (Uma-wound Yes Skin Appearance) -Ulcer Cleansing Rinsed/ Irrigated with Saline -Foul Odor after Cleansing No -Anesthetic Used 4% Lidocaine Solution WC - Nurse 2 - General Ulcer CM Notes Start: 09/05/17 10:54 Freq: Status: Active Protocol: Activity Type Activity Date Activity User E-Sign Co-Sign Detail Recorded Client Recorded Date Recorded By Document 10/02/17 09:45 DV [id number] 10/02/17 09:48 DV 10/02/17 09:45 Wound Center Nurse 2 [Procedure/Treatment] -Time 09:46 -Correct Patient Yes -Correct Side, Site, Position Yes -Correct Procedure Yes -Procedure Performed Yes -Type of Procedure Debridement -Clinical Debridement Subcutaneous -Post Debridement Size (cm) - Length 14.0 -Post Debridement Size (cm) - Width 4.8 -Post Debridement Size (cm) - Depth 1.0 -Total Square Cm 67.20 -Wound/Ulcer Outcome Not Healed -Ulcer Cleansing Rinsed/ Irrigated with Saline -Foul Odor after Cleansing No -Bioengineered Tissue No -Bleeding Controlled with Pressure Silver Nitrate SURGIFOAM -Treatment Response Procedure Tolerated Well [See Physician Procedure note for Specifics] Pain Scale: 0-10 Numeric [Pain] -Is Patient Pain Free? Yes Musculoskeletal: No Muscle Wasting Neurological: Cranial nerves II-XII grossly intact Psych/Mental Status: Normal Affect Debridement Note Post-Debridement Measurements/Treatment WC - Nurse 2 - General Ulcer CM Notes Start: 09/05/17 10:54 Freq: Status: Active Protocol: Activity Type Activity Date Activity User E-Sign Co-Sign Detail Recorded Client Recorded Date Recorded By Document 09/05/17 11:42 DV [id number] 09/05/17 11:50 DV Document 09/11/17 11:47 DV [id number] 09/11/17 11:48 DV Document 09/18/17 13:40 DV [id number] 09/18/17 13:48 DV Document 09/25/17 08:52 DV [id number] 09/25/17 09:00 DV Document 10/02/17 09:45 DV [id number] 10/02/17 09:48 DV 09/05/17 09/11/17 09/18/17 11:42 11:47 13:40 Wound Center Nurse 2 #9 Lower Lumbar- Midline -Time 11:43 11:47 13:41 -Correct Patient Yes Yes Yes -Correct Side, Site, Position Yes Yes Yes -Correct Procedure Yes Yes Yes -Procedure Performed Yes Yes Yes -Type of Procedure Debridement Debridement Debridement -Clinical Debridement Subcutaneous Subcutaneous Subcutaneous -Post Debridement Size (cm) - Length 14.6 13.8 13.8 -Post Debridement Size (cm) - Width 4.8 4.8 4.4 -Post Debridement Size (cm) - Depth 1.3 1.0 0.1 -Total Square Cm 70.08 66.24 60.72 -Wound/Ulcer Outcome Not Healed Not Healed Not Healed -Ulcer Cleansing Rinsed/ Rinsed/ Rinsed/ Irrigated with Irrigated with Irrigated with Saline Saline Saline -Foul Odor after Cleansing No No No -Bioengineered Tissue No No No -Bleeding Controlled with Pressure Pressure Pressure -Treatment Response Procedure Procedure Procedure Tolerated Well Tolerated Well Tolerated Well Pain Scale: 0-10 Numeric Is Patient Pain Free? Yes Yes Yes 09/25/17 10/02/17 08:52 09:45 Wound Center Nurse 2 #9 Lower Lumbar- Midline -Time 08:53 09:46 -Correct Patient Yes Yes -Correct Side, Site, Position Yes Yes -Correct Procedure Yes Yes -Procedure Performed Yes Yes -Type of Procedure Debridement Debridement -Clinical Debridement Subcutaneous Subcutaneous -Post Debridement Size (cm) - Length 13.8 14.0 -Post Debridement Size (cm) - Width 4.6 4.8 -Post Debridement Size (cm) - Depth 0.9 1.0 -Total Square Cm 63.48 67.20 -Wound/Ulcer Outcome Not Healed Not Healed -Ulcer Cleansing Rinsed/ Rinsed/ Irrigated with Irrigated with Saline Saline -Foul Odor after Cleansing No No -Bioengineered Tissue No No -Bleeding Controlled with NA Pressure Silver Nitrate SURGIFOAM -Treatment Response Procedure Procedure Tolerated Well Tolerated Well Pain Scale: 0-10 Numeric Is Patient Pain Free? Yes Yes Wound debrided: Posterior Lumbar Wound Grade/Stage: Stage II Type of Debridement: Excisional debridement Anesthesia Used: 4% Lidocaine Solution Depth: Down to and including healthy tissue, in the subcutaneous layer Percentage of wound debrided: 100 Instrument Used: 7mm curette Tissue Removed: Slough and devitalized tissue Severity: Fat Layer Exposed Amount of bleeding with debridement: Moderate Bleeding Controlled with: Pressure, Silver Nitrate, Gel Foam Patient tolerated procedure well Assessment/Plan Active Problems (Last Reviewed 08/27/17 @ 10:52 by Marzena Jackson) Nonhealing surgical wound (Chronic) Open wound of lower back (Chronic) Assessment: chronic surgical wound dehiscence lumbar with complex abscess and recent surgical debridement. malnutrition. other multiple comorbidities. edema bilateral lower extremities. venous insufficiency. immunocompromised status. Plan: No new complaints at this time. No wound vac over the last week due to problems with his home health. Significant slough burden noted today. Debridement done as documented above. Procedure was well-tolerated. Cultures taken. Resume use of wound vac at 125mmHg. Ensure good hygiene and minimal contact with wound. Continue high protein diet. Follow up in 1 week. This note was generated with [employer] software. It may contain incorrect words, spelling, and punctuation that were not noted in checking the note before signing.
== END 2017-10-03 23:59 ==
LOC: WC 09:00
PROVIDERS: Family Provider Family Medicine; PCP Family Medicine; Visit Provider Internal Medicine
DX: S31.000A Unspecified open wound of lower back and pelvis without penetration into retroperitoneum, initial encounter (principal); T81.89XA Other complications of procedures, not elsewhere classified, initial encounter; I50.32 Chronic diastolic (congestive) heart failure; N18.9 Chronic kidney disease, unspecified; I87.2 Venous insufficiency (chronic) (peripheral); R60.0 Localized edema
CPT/HCPCS: 11042; 11045; 17250; 87070; 87075; 87077; 87184; 87186; 87205; 97606

== ENCOUNTER → 2017-10-16 11:01 | Outpatient (CLI) | payer MEDICARE, OTHER, SELFPAY ==
[2015-10-31 10:00] VITALS: BMI 34.9
[2017-10-16 11:38] LABS: Absolute Lymphocyte Count 1.28 X10^3/ul (0.83-4.51); Absolute Neutrophil Count 3.6 X10^3/uL (2.0-7.7); Basophil# 0.03 X10^3/uL; Basophil% 0.5 % (0-1); Eosinophil# 0.13 X10^3/uL; Eosinophils% 2.2 % (0-5); Hematocrit 30.8 % (40-54); Lymphocyte # 1.28 X10^3/ul (4.0); Lymphocyte % 21.5 % (19-41); Mean Corp Hgb Conc 32.5 g/gl (32-36); Mean Corpuscular Hgb 32.2 pg (27.0-32.0); Mean Platelet Vol. 8.8 fl (6.2-12.0); Monocyte# 0.91 X10^3/uL; Monocyte% 15.3 % (0-10); Neutrophil # 3.61 X10^3/uL (2.7-7.7); Neutrophil % 60.5 % (47-70); Platelet Count 323 K/mm3 (150-450); RBC Distribution Width CV 14.7 % (11.6-14.6); RBC Distribution Width SD 52.6 fl (35.1-43.9); Red Blood Count 3.11 M/mm3 (4.6-6.2)
[2017-10-16 11:40] LABS: POSITIVE COUNT NO; POSITIVE DIFFERENTIAL NO; POSITIVE MORPHOLOGY NO
[2017-10-16 12:32] VITALS: BP 118/62; PULSE 67; RESP 18; TEMP 36.4; O2SAT 100; BMI 25.0
== END ==
PROVIDERS: Family Provider Family Medicine; PCP Family Medicine; Visit Provider Internal Medicine Nephrology
DX: N18.3 Chronic kidney disease, stage 3 (moderate) (principal); D63.1 Anemia in chronic kidney disease
CPT/HCPCS: 36415; 85025; 96372; J0885

== ENCOUNTER → 2017-11-01 09:51 | Outpatient (CLI) | payer MEDICARE, OTHER, SELFPAY ==
[2015-10-31 10:00] VITALS: BMI 34.9
[2017-11-01 10:22] LABS: Absolute Lymphocyte Count 1.53 X10^3/ul (0.83-4.51); Absolute Neutrophil Count 3.6 X10^3/uL (2.0-7.7); Basophil# 0.05 X10^3/uL; Basophil% 0.8 % (0-1); Eosinophil# 0.35 X10^3/uL; Eosinophils% 5.6 % (0-5); Hematocrit 31.1 % (40-54); Hemoglobin 10.3 g/dl (13.0-16.5); Lymphocyte # 1.53 X10^3/ul (4.0); Lymphocyte % 24.6 % (19-41); Mean Corp Hgb Conc 33.1 g/gl (32-36); Mean Corpuscular Hgb 33.4 pg (27.0-32.0); Mean Platelet Vol. 9.8 fl (6.2-12.0); Monocyte# 0.69 X10^3/uL; Monocyte% 11.1 % (0-10); Neutrophil % 57.7 % (47-70); Platelet Count 195 K/mm3 (150-450); RBC Distribution Width CV 14.7 % (11.6-14.6); RBC Distribution Width SD 51.5 fl (35.1-43.9); Red Blood Count 3.08 M/mm3 (4.6-6.2); White Blood Count 6.2 K/mm3 (4.4-11.0)
[2017-11-01 10:26] LABS: POSITIVE COUNT NO; POSITIVE DIFFERENTIAL NO; POSITIVE MORPHOLOGY NO
[2017-11-01 10:31] LABS: Albumin, Serum 3.2 g/dL (3.2-5.0); BUN 59 mg/dL (7-18); BUN/Creat Ratio 33.1 RATIO (10-20); Calcium,Total 9.3 mg/dL (8.5-10.1); Chloride 101 mmol/L (98-107); Creatinine, Serum 1.78 mg/dL (0.70-1.30); EST Glomerular Filtration Rate 40 mL/min (>60); Est Glom Filt Rate - Afr Amer 48 mL/min (>60); Glucose 79 mg/dL (74-106); Potassium 3.8 mmol/L (3.5-5.1); Sodium Level 136 mmol/L (136-145)
[2017-11-01 10:52] VITALS: BP 112/57; PULSE 65; RESP 18; TEMP 36.5; O2SAT 100; BMI 25.9
== END ==
PROVIDERS: Family Provider Family Medicine; PCP Family Medicine; Visit Provider Internal Medicine Nephrology
DX: N18.3 Chronic kidney disease, stage 3 (moderate) (principal); D63.1 Anemia in chronic kidney disease; T81.31XA Disruption of external operation (surgical) wound, not elsewhere classified, initial encounter; I48.0 Paroxysmal atrial fibrillation; I77.810 Thoracic aortic ectasia; T81.4XXA Infection following a procedure, initial encounter; B99.8 Other infectious disease; I27.20 Pulmonary hypertension, unspecified; I12.9 Hypertensive chronic kidney disease with stage 1 through stage 4 chronic kidney disease, or unspecified chronic kidney disease; I73.9 Peripheral vascular disease, unspecified; Z86.711 Personal history of pulmonary embolism; Z85.72 Personal history of non-Hodgkin lymphomas; Z87.891 Personal history of nicotine dependence
CPT/HCPCS: 11042; 11045; 36415; 80069; 85025; 87070; 87075; 87077; 87186; 87205; 96372; 97606; J0885

== ENCOUNTER 2017-11-01 13:00 | Outpatient (RCR) | payer MEDICARE, OTHER, SELFPAY ==
[2015-10-31 10:00] VITALS: BMI 34.9
[2017-10-04 00:31] VITALS: BP 129/63; PULSE 61; RESP 16; TEMP 36.3; BMI 56.5
[2017-10-18 12:38] VITALS: BP 137/76; PULSE 75; RESP 16; TEMP 36.4; BMI 56.5
--- NOTE | 2017-10-18 21:24 | PCM.WC.PN ---
(1) Nonhealing surgical wound Status: Chronic Current Visit: Yes Qualifiers: Encounter type: subsequent encounter Code(s): T81.89XA - Other complications of procedures, not elsewhere classified, initial encounter (2) Open wound of lower back Status: Chronic Current Visit: Yes Code(s): S31.000A - Unspecified open wound of lower back and pelvis without penetration into retroperitoneum, initial encounter (3) Chronic kidney disease Status: Chronic Current Visit: Yes Qualifiers: Chronic kidney disease stage: stage 3 (moderate) Qualified Code(s): N18.3 - Chronic kidney disease, stage 3 (moderate) Code(s): N18.9 - Chronic kidney disease, unspecified Type of Wound Date of Service: 10/18/17 Chief Complaint: Nonhealing surgical wound of lower back History of Wound: Mr. Marshall is a 72-yo who has been seen here at the wound center for a nonhealing surgical wound of his lower back s/p surgical debridement for an abscess s/p lumbar spine surgery. His original surgery on his lower back was approximately 18 months ago and he has had multiple complications since that time. He underwent surgical debridement on 03/04/[address] Davila at [facility] in [place] and was discharged with a wound vac for healing by secondary intention with possible muscle flap closure in the future. He followed up with his surgeon on 04/18/17 for further evaluation and recommendations and they plan to close the wound with a muscle flap but he continues to develop infections. He is also being seen by Infectious Disease. Progress of Wound: Cuong returns for a follow up visit for his nonhealing wound of hi slower back s/p surgical complications. He has been being treated with a wound vac and has continued to have improvements although very slowly due to his complicated case and co-morbidities. He has not been on any antibiotics for approximately 2 weeks. He has noticed increased pain and drainage at the base/distal portion of his wound. He has wanted to try a less restrictive wound vac device and his wound is to the measurements that this will be possible today. - Physical Exam Vital Signs Temp Pulse Resp BP 97.5 F L 75 16 137/76 H 10/18/17 12:38 10/18/17 12:38 10/18/17 12:38 10/18/17 12:38 General: Alert, Oriented x3, Cooperative, No apparent distress HEENT: Atraumatic, Normocephalic Skin: Ulcer/ Wound Wound Measurements and Assessment WC - Nurse 1 - General Ulcer Measurement Start: 10/18/17 12:38 Freq: Status: Active Protocol: Activity Type Activity Date Activity User E-Sign Co-Sign Detail Recorded Client Recorded Date Recorded By Document 10/18/17 12:38 CS [id number] 10/18/17 12:52 CS 10/18/17 12:38 Wound Center Nurse 1 [Ulcer Assessment] #9 Lower Lumbar- Midline -Combined with other wound No -Current Size (cm) - Length 13.8 -Current Size (cm) - Width 4.0 -Current Size (cm) - Depth 0.7 -Total Square Cm 55.20 -Epithelialization Small 1-33% -Tunneling No -Undermining/Tunneling Yes -Undermining/Tunneling Starts (O' 11 clock) -Undermining/Tunneling Ends (O'clock) 1 -Maximum Distance (cm) 1.0 -Circular Undermining No -Classification - Thickness Full Thickness without Exposed Support Structure -Exudate Amt Large (67-100%) -Exudate Type Serosanguineous -Wound Margin Distinct, Outline Attached -Granulation Amt Medium (34-66%) -Granulation Quality Red -Slough/Fibrin Yes -Necrosis Amt Medium (34-66%) -Necrotic Tissue Type Adherent Slough -Texture (Uma-wound Skin Appearance) No Abnormality Assessed -Color (Uma-wound Skin Appearance) No Abnormality Assessed -Temperature (Uma-wound Skin No Abnormality Appearance) (Pt Warm) -Tenderness on Palpation (Uam-wound Yes Skin Appearance) -Ulcer Cleansing Rinsed/ Irrigated with Saline -Foul Odor after Cleansing No -Anesthetic Used 4% Lidocaine Solution [Edema Assessment] -Lower Limb Edema Present NA WC - Nurse 2 - General Ulcer CM Notes Start: 10/18/17 12:38 Freq: Status: Active Protocol: Activity Type Activity Date Activity User E-Sign Co-Sign Detail Recorded Client Recorded Date Recorded By Document 10/18/17 13:30 DV [id number] 10/18/17 19:49 DV 10/18/17 13:30 Wound Center Nurse 2 [Procedure/Treatment] #9 Lower Lumbar- Midline -Time 13:30 -Correct Patient Yes -Correct Side, Site, Position Yes -Correct Procedure Yes -Procedure Performed Yes -Type of Procedure Debridement -Clinical Debridement Subcutaneous -Post Debridement Size (cm) - Length 14.5 -Post Debridement Size (cm) - Width 5.0 -Post Debridement Size (cm) - Depth 0.8 -Total Square Cm 72.50 -Wound/Ulcer Outcome Not Healed -Ulcer Cleansing Rinsed/ Irrigated with Saline -Foul Odor after Cleansing No -Bioengineered Tissue No -Bleeding Controlled with Pressure -Treatment Response Procedure Tolerated Well [See Physician Procedure note for Specifics] Pain Scale: 0-10 Numeric [Pain] -Is Patient Pain Free? Yes Psych/Mental Status: Normal Affect, Appropriate Debridement Note Post-Debridement Measurements/Treatment WC - Nurse 2 - General Ulcer CM Notes Start: 10/18/17 12:38 Freq: Status: Active Protocol: Activity Type Activity Date Activity User E-Sign Co-Sign Detail Recorded Client Recorded Date Recorded By Document 10/18/17 13:30 DV [id number] 10/18/17 19:49 DV 10/18/17 13:30 Wound Center Nurse 2 #9 Lower Lumbar- Midline -Time 13:30 -Correct Patient Yes -Correct Side, Site, Position Yes -Correct Procedure Yes -Procedure Performed Yes -Type of Procedure Debridement -Clinical Debridement Subcutaneous -Post Debridement Size (cm) - Length 14.5 -Post Debridement Size (cm) - Width 5.0 -Post Debridement Size (cm) - Depth 0.8 -Total Square Cm 72.50 -Wound/Ulcer Outcome Not Healed -Ulcer Cleansing Rinsed/ Irrigated with Saline -Foul Odor after Cleansing No -Bioengineered Tissue No -Bleeding Controlled with Pressure -Treatment Response Procedure Tolerated Well Pain Scale: 0-10 Numeric Is Patient Pain Free? Yes Laterality: Not Applicable Type of Debridement: Excisional debridement Anesthesia Used: 4% Lidocaine Solution Depth: Down to and including healthy tissue, in the subcutaneous layer Percentage of wound debrided: 100 Instrument Used: 5mm curette Tissue Removed: yellow slough, devitalized tissue Severity: Fat Layer Exposed Amount of bleeding with debridement: Mild Bleeding Controlled with: Compression and gauze Patient tolerated procedure well Assessment/Plan Active Problems (Last Reviewed 08/27/17 @ 10:52 by Marzena Jackson) Nonhealing surgical wound (Chronic) Open wound of lower back (Chronic) Chronic kidney disease (Chronic) Assessment: chronic surgical wound dehiscence lumbar with complex abscess and recent surgical debridement. malnutrition. other multiple comorbidities. edema bilateral lower extremities. venous insufficiency. immunocompromised status. Plan: His wound was debrided today and a culture was taken due to the increase in pain and drainage. Empirically started him back on levaquin and doxycycline that he has been taking previously until cultures are back. SNAP vac was placed today with good results. Without a vac he develops significant slough and has developed abscess and infection. It is imperative to the improvement of his wound and for potential surgical closure that he continues with vac treatment either with SNAP vac or conventional wound vac therapy. Continue wound vac at 125mmHg. Ensure good hygiene and minimal contact with wound. Continue high protein diet. Follow up in 1 week and on Saturday for [place] to change SNAP vac. This note was generated with [employer] dictation software. It may contain incorrect words, spelling, and punctuation that were not noted in checking the note before signing.
--- NOTE | 2017-10-18 21:34 | PN.PCM_ITS ---
(1) Nonhealing surgical wound Status: Chronic Current Visit: Yes Qualifiers: Encounter type: subsequent encounter Code(s): T81.89XA - Other complications of procedures, not elsewhere classified , initial encounter (2) Open wound of lower back Status: Chronic Current Visit: Yes Code(s): S31.000A - Unspecified open wound of lower back and pelvis without penetration into retroperitoneum, initial encounter (3) Chronic kidney disease Status: Chronic Current Visit: Yes Qualifiers: Chronic kidney disease stage: stage 3 (moderate) Qualified Code(s): N18.3 - Chronic kidney disease, stage 3 (moderate) Code(s): N18.9 - Chronic kidney disease, unspecified Type of Wound Date of Service: 10/18/17 Chief Complaint: Nonhealing surgical wound of lower back History of Wound: Mr. Marshall is a 72-yo who has been seen here at the wound center for a nonhealing surgical wound of his lower back s/p surgical debridement for an abscess s/p lumbar spine surgery. His original surgery on his lower back was approximately 18 months ago and he has had multiple complications since that time. He underwent surgical debridement on 03/04/[address] Davila at [facility] in [place] and was discharged with a wound vac for healing by secondary intention with possible muscle flap closure in the future. He followed up with his surgeon on 04/18/17 for further evaluation and recommendations and they plan to close the wound with a muscle flap but he continues to develop infections. He is also being seen by Infectious Disease. Progress of Wound: Cuong returns for a follow up visit for his nonhealing wound of hi slower back s/p surgical complications. He has been being treated with a wound vac and has continued to have improvements although very slowly due to his complicated case and co-morbidities. He has not been on any antibiotics for approximately 2 weeks. He has noticed increased pain and drainage at the base/ distal portion of his wound. He has wanted to try a less restrictive wound vac device and his wound is to the measurements that this will be possible today. - Physical Exam Vital Signs Temp Pulse Resp BP 97.5 F L 75 16 137/76 H 10/18/17 12:38 10/18/17 12:38 10/18/17 12:38 10/18/17 12:38 General: Alert, Oriented x3, Cooperative, No apparent distress HEENT: Atraumatic, Normocephalic Skin: Ulcer/ Wound Wound Measurements and Assessment WC - Nurse 1 - General Ulcer Measurement Start: 10/18/17 12:38 Freq: Status: Active Protocol: Activity Type Activity Date Activity User E-Sign Co-Sign Detail Recorded Client Recorded Date Recorded By Document 10/18/17 12:38 CS [id number] 10/18/17 12:52 CS 10/18/17 12:38 Wound Center Nurse 1 [Ulcer Assessment] #9 Lower Lumbar- Midline -Combined with other wound No -Current Size (cm) - Length 13.8 -Current Size (cm) - Width 4.0 -Current Size (cm) - Depth 0.7 -Total Square Cm 55.20 -Epithelialization Small 1-33% -Tunneling No -Undermining/Tunneling Yes -Undermining/Tunneling Starts (O' 11 clock) -Undermining/Tunneling Ends (O'clock) 1 -Maximum Distance (cm) 1.0 -Circular Undermining No -Classification - Thickness Full Thickness without Exposed Support Structure -Exudate Amt Large (67-100%) -Exudate Type Serosanguineous -Wound Margin Distinct, Outline Attached -Granulation Amt Medium (34-66%) -Granulation Quality Red -Slough/Fibrin Yes -Necrosis Amt Medium (34-66%) -Necrotic Tissue Type Adherent Slough -Texture (Uma-wound Skin Appearance) No Abnormality Assessed -Color (Uma-wound Skin Appearance) No Abnormality Assessed -Temperature (Uma-wound Skin No Abnormality Appearance) (Pt Warm) -Tenderness on Palpation (Uma-wound Yes Skin Appearance) -Ulcer Cleansing Rinsed/ Irrigated with Saline -Foul Odor after Cleansing No -Anesthetic Used 4% Lidocaine Solution [Edema Assessment] -Lower Limb Edema Present NA WC - Nurse 2 - General Ulcer CM Notes Start: 10/18/17 12:38 Freq: Status: Active Protocol: Activity Type Activity Date Activity User E-Sign Co-Sign Detail Recorded Client Recorded Date Recorded By Document 10/18/17 13:30 DV [id number] 10/18/17 19:49 DV 10/18/17 13:30 Wound Center Nurse 2 [Procedure/Treatment] #9 Lower Lumbar- Midline -Time 13:30 -Correct Patient Yes -Correct Side, Site, Position Yes -Correct Procedure Yes -Procedure Performed Yes -Type of Procedure Debridement -Clinical Debridement Subcutaneous -Post Debridement Size (cm) - Length 14.5 -Post Debridement Size (cm) - Width 5.0 -Post Debridement Size (cm) - Depth 0.8 -Total Square Cm 72.50 -Wound/Ulcer Outcome Not Healed -Ulcer Cleansing Rinsed/ Irrigated with Saline -Foul Odor after Cleansing No -Bioengineered Tissue No -Bleeding Controlled with Pressure -Treatment Response Procedure Tolerated Well [See Physician Procedure note for Specifics] Pain Scale: 0-10 Numeric [Pain] -Is Patient Pain Free? Yes Psych/Mental Status: Normal Affect, Appropriate Debridement Note Post-Debridement Measurements/Treatment WC - Nurse 2 - General Ulcer CM Notes Start: 10/18/17 12:38 Freq: Status: Active Protocol: Activity Type Activity Date Activity User E-Sign Co-Sign Detail Recorded Client Recorded Date Recorded By Document 10/18/17 13:30 DV [id number] 10/18/17 19:49 DV 10/18/17 13:30 Wound Center Nurse 2 #9 Lower Lumbar- Midline -Time 13:30 -Correct Patient Yes -Correct Side, Site, Position Yes -Correct Procedure Yes -Procedure Performed Yes -Type of Procedure Debridement -Clinical Debridement Subcutaneous -Post Debridement Size (cm) - Length 14.5 -Post Debridement Size (cm) - Width 5.0 -Post Debridement Size (cm) - Depth 0.8 -Total Square Cm 72.50 -Wound/Ulcer Outcome Not Healed -Ulcer Cleansing Rinsed/ Irrigated with Saline -Foul Odor after Cleansing No -Bioengineered Tissue No -Bleeding Controlled with Pressure -Treatment Response Procedure Tolerated Well Pain Scale: 0-10 Numeric Is Patient Pain Free? Yes Laterality: Not Applicable Type of Debridement: Excisional debridement Anesthesia Used: 4% Lidocaine Solution Depth: Down to and including healthy tissue, in the subcutaneous layer Percentage of wound debrided: 100 Instrument Used: 5mm curette Tissue Removed: yellow slough, devitalized tissue Severity: Fat Layer Exposed Amount of bleeding with debridement: Mild Bleeding Controlled with: Compression and gauze Patient tolerated procedure well Assessment/Plan Active Problems (Last Reviewed 08/27/17 @ 10:52 by Marzena Jackson) Nonhealing surgical wound (Chronic) Open wound of lower back (Chronic) Chronic kidney disease (Chronic) Assessment: chronic surgical wound dehiscence lumbar with complex abscess and recent surgical debridement. malnutrition. other multiple comorbidities. edema bilateral lower extremities. venous insufficiency. immunocompromised status. Plan: His wound was debrided today and a culture was taken due to the increase in pain and drainage. Empirically started him back on levaquin and doxycycline that he has been taking previously until cultures are back. SNAP vac was placed today with good results. Without a vac he develops significant slough and has developed abscess and infection. It is imperative to the improvement of his wound and for potential surgical closure that he continues with vac treatment either with SNAP vac or conventional wound vac therapy. Continue wound vac at 125mmHg. Ensure good hygiene and minimal contact with wound. Continue high protein diet. Follow up in 1 week and on Saturday for [place] to change SNAP vac. This note was generated with [employer] dictation software. It may contain incorrect words, spelling, and punctuation that were not noted in checking the note before signing.
[2017-10-21 09:12] VITALS: BP 118/57; PULSE 79; RESP 16; TEMP 36.7; BMI 56.5
[2017-10-23 11:43] VITALS: BP 119/68; PULSE 77; RESP 16; TEMP 36.8; BMI 56.5
--- NOTE | 2017-10-23 12:13 | PCM.PN.ID ---
Subjective: Increased pain, redness, and drainage from lumbar wound. No fever, not feeling well. Started on levaquin/doxy without improvement. - Physical Exam General: Cooperative, No apparent distress Lungs: Clear to auscultation, Normal air movement Cardiovascular: Regular rate, Regular Rhythm Abdomen: Soft, Non Tender, Non-Distended Skin: Ulcer/ Wound - lumbar wound, some drainage Vital Signs Temp Pulse Resp BP 98.2 F 77 16 119/68 10/23/17 11:43 10/23/17 11:43 10/23/17 11:43 10/23/17 11:43 Oxygen Delivery Method Room Air Weight: 168.8 kg Body Mass Index (BMI) 56.5 Microbiology Past 72 Hours 10/18/17 13:20 Gram Stain - Final Ulcer, Decubitus - Back Wound Culture - Final Meth. resistant Staph. aureus Corynebacterium striatum Anaerobic Culture - Final No anaerobic bacteria isolated. 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 He is to stop these abx. Start 2 week course of po linezolid 600mg bid. Reviewed med list and lab work. Stricter wound care is going to be started which should help decrease the frequency of these superficial infections. Will follow.
[2017-10-25 12:34] VITALS: BP 127/64; PULSE 61; RESP 20; TEMP 36.3; BMI 56.5
--- NOTE | 2017-10-25 16:39 | PCM.WC.PN ---
(1) Nonhealing surgical wound Status: Chronic Current Visit: Yes Qualifiers: Encounter type: subsequent encounter Code(s): T81.89XA - Other complications of procedures, not elsewhere classified, initial encounter (2) Open wound of lower back Status: Chronic Current Visit: Yes Code(s): S31.000A - Unspecified open wound of lower back and pelvis without penetration into retroperitoneum, initial encounter (3) Chronic kidney disease Status: Chronic Current Visit: Yes Qualifiers: Chronic kidney disease stage: stage 3 (moderate) Qualified Code(s): N18.3 - Chronic kidney disease, stage 3 (moderate) Code(s): N18.9 - Chronic kidney disease, unspecified (4) Cellulitis Status: Acute Current Visit: Yes Qualifiers: Site of cellulitis: trunk Site of cellulitis of trunk: back Qualified Code(s): L03.312 - Cellulitis of back [any part except buttock] Code(s): L03.90 - Cellulitis, unspecified Type of Wound Date of Service: 10/25/17 Chief Complaint: Nonhealing surgical wound of lower back History of Wound: Mr. Marshall is a 72-yo who has been seen here at the wound center for a nonhealing surgical wound of his lower back s/p surgical debridement for an abscess s/p lumbar spine surgery. His original surgery on his lower back was approximately 18 months ago and he has had multiple complications since that time. He underwent surgical debridement on 03/04/[address] Davila at [facility] in [place] and was discharged with a wound vac for healing by secondary intention with possible muscle flap closure in the future. He followed up with his surgeon on 04/18/17 for further evaluation and recommendations and they plan to close the wound with a muscle flap but he continues to develop infections. He is also being seen by Infectious Disease. Progress of Wound: Cuong returns for a follow up visit for his nonhealing wound of his lower back s/p surgical complications. He has been being treated with a wound vac and has continued to have improvements although very slowly due to his complicated case and co-morbidities. His wound culture showed MRSA and ID was consulted and he has been placed on oral Linezolid based on sensitivities. The snap vac did not work when placed last week due to the large amount of drainage that he had. Regular wound vac was placed on Saturday. He continues to have pain but less drainage at the base/distal portion of his wound. Tolerating antibiotics well. No fever or chills. - Physical Exam Vital Signs Temp Pulse Resp BP 97.4 F L 61 20 H 127/64 H 10/25/17 12:34 10/25/17 12:34 10/25/17 12:34 10/25/17 12:34 General: Alert, Oriented x3, Cooperative, No apparent distress HEENT: Atraumatic, Normocephalic Oral: Moist Mucosa Skin: Ulcer/ Wound Wound Measurements and Assessment WC - Nurse 1 - General Ulcer Measurement Start: 10/18/17 12:38 Freq: Status: Active Protocol: Activity Type Activity Date Activity User E-Sign Co-Sign Detail Recorded Client Recorded Date Recorded By Document 10/23/17 11:43 BM [id number] 10/23/17 11:53 BMF Document 10/25/17 12:34 DL [id number] 10/25/17 12:46 DL 10/23/17 10/25/17 11:43 12:34 Wound Center Nurse 1 [Ulcer Assessment] #9 Lower Lumbar- Midline -Combined with other wound No -Current Size (cm) - Length 13.7 13.8 -Current Size (cm) - Width 4.5 3.4 -Current Size (cm) - Depth 0.9 1 -Total Square Cm 61.65 46.92 -Photo Taken No No -Epithelialization None Present -Undermining/Tunneling Yes -Undermining/Tunneling Starts (O' 6 clock) -Undermining/Tunneling Ends (O'clock) 2 -Maximum Distance (cm) 1.4 -Classification - Thickness Full Thickness with Exposed Support Structure -Exudate Amt Large (67-100%) -Exudate Type Serosanguineous -Wound Margin Thickened & Rolled Under -Granulation Amt Medium (34-66%) -Granulation Quality [place] -Necrosis Amt Medium (34-66%) -Necrotic Tissue Type Adherent Slough -Structure Exposed N/A -Texture (Uma-wound Skin Appearance) Scarring -Moisture (Uma-wound Skin Appearance No Abnormality ) -Color (Uma-wound Skin Appearance) No Abnormality -Temperature (Uma-wound Skin No Abnormality Appearance) (Pt Warm) -Ulcer Cleansing Wound Cleanser -Foul Odor after Cleansing No -Anesthetic Used 4% Lidocaine Solution WC - Nurse 2 - General Ulcer CM Notes Start: 10/18/17 12:38 Freq: Status: Active Protocol: Activity Type Activity Date Activity User E-Sign Co-Sign Detail Recorded Client Recorded Date Recorded By Document 10/25/17 13:17 SELENA [id number] 10/25/17 13:46 10/25/17 13:17 Wound Center Nurse 2 [Procedure/Treatment] -Time 13:17 -Correct Patient Yes -Correct Side, Site, Position Yes -Correct Procedure Yes -Procedure Performed Yes -Type of Procedure Debridement -Clinical Debridement Muscle -Post Debridement Size (cm) - Length 14 -Post Debridement Size (cm) - Width 4.5 -Post Debridement Size (cm) - Depth 0.8 -Total Square Cm 63.0 -Wound/Ulcer Outcome Not Healed -Ulcer Cleansing Rinsed/ Irrigated with Saline -Foul Odor after Cleansing No -Bioengineered Tissue No -Topical Lidocaine (%) 4 -Lidocaine (ml) 15 -Bleeding Controlled with NA -Treatment Response Procedure Tolerated Well [See Physician Procedure note for Specifics] Pain Scale: 0-10 Numeric [Pain] -Is Patient Pain Free? Yes Psych/Mental Status: Normal Affect, Appropriate Debridement Note Post-Debridement Measurements/Treatment WC - Nurse 2 - General Ulcer CM Notes Start: 10/18/17 12:38 Freq: Status: Active Protocol: Activity Type Activity Date Activity User E-Sign Co-Sign Detail Recorded Client Recorded Date Recorded By Document 10/18/17 13:30 DV [id number] 10/18/17 19:49 DV Document 10/25/17 13:17 [id number] 10/25/17 13:46 10/18/17 10/25/17 13:30 13:17 Wound Center Nurse 2 #9 Lower Lumbar- Midline -Time 13:30 13:17 -Correct Patient Yes Yes -Correct Side, Site, Position Yes Yes -Correct Procedure Yes Yes -Procedure Performed Yes Yes -Type of Procedure Debridement Debridement -Clinical Debridement Subcutaneous Muscle -Post Debridement Size (cm) - Length 14.5 14 -Post Debridement Size (cm) - Width 5.0 4.5 -Post Debridement Size (cm) - Depth 0.8 0.8 -Total Square Cm 72.50 63.0 -Wound/Ulcer Outcome Not Healed Not Healed -Ulcer Cleansing Rinsed/ Rinsed/ Irrigated with Irrigated with Saline Saline -Foul Odor after Cleansing No No -Bioengineered Tissue No No -Topical Lidocaine (%) 4 -Lidocaine (ml) 15 -Bleeding Controlled with Pressure NA -Treatment Response Procedure Procedure Tolerated Well Tolerated Well Pain Scale: 0-10 Numeric Is Patient Pain Free? Yes Yes Wound debrided: lower lumbar midline Laterality: Not Applicable Type of Debridement: Excisional debridement Anesthesia Used: 4% Lidocaine Solution Depth: Down to and including healthy tissue, in the subcutaneous layer, to muscle Percentage of wound debrided: 100 Instrument Used: 7mm curette, #10 blade, Forceps Tissue Removed: devitalized tissue, slough, fibrous exudate Severity: Necrosis of Muscle Amount of bleeding with debridement: Mild Bleeding Controlled with: Compression and gauze Patient tolerated procedure well Assessment/Plan Active Problems (Last Reviewed 08/27/17 @ 10:52 by Marzena Jackson) Nonhealing surgical wound (Chronic) Open wound of lower back (Chronic) Cellulitis (Acute) Chronic kidney disease (Chronic) Assessment: chronic surgical wound dehiscence lumbar with complex abscess and recent surgical debridement. malnutrition. other multiple comorbidities. edema bilateral lower extremities. venous insufficiency. immunocompromised status. Plan: His wound was debrided today. He will continue Linezolid and will switch to the SNAP vac on Saturday if his drainage is improved. Without a vac he develops significant slough and has developed abscess and infection. It is imperative to the improvement of his wound and for potential surgical closure that he continues with vac treatment either with SNAP vac or conventional wound vac therapy. Continue wound vac at 125mmHg. Ensure good hygiene and minimal contact with wound. Continue high protein diet. Follow up in 1 week and on Saturday for [place] to change to SNAP vac. This note was generated with [employer] software. It may contain incorrect words, spelling, and punctuation that were not noted in checking the note before signing.
--- NOTE | 2017-10-25 16:46 | PN.PCM_ITS ---
(1) Nonhealing surgical wound Status: Chronic Current Visit: Yes Qualifiers: Encounter type: subsequent encounter Code(s): T81.89XA - Other complications of procedures, not elsewhere classified , initial encounter (2) Open wound of lower back Status: Chronic Current Visit: Yes Code(s): S31.000A - Unspecified open wound of lower back and pelvis without penetration into retroperitoneum, initial encounter (3) Chronic kidney disease Status: Chronic Current Visit: Yes Qualifiers: Chronic kidney disease stage: stage 3 (moderate) Qualified Code(s): N18.3 - Chronic kidney disease, stage 3 (moderate) Code(s): N18.9 - Chronic kidney disease, unspecified (4) Cellulitis Status: Acute Current Visit: Yes Qualifiers: Site of cellulitis: trunk Site of cellulitis of trunk: back Qualified Code(s): L03.312 - Cellulitis of back [any part except buttock] Code(s): L03.90 - Cellulitis, unspecified Type of Wound Date of Service: 10/25/17 Chief Complaint: Nonhealing surgical wound of lower back History of Wound: Mr. Marshall is a 72-yo who has been seen here at the wound center for a nonhealing surgical wound of his lower back s/p surgical debridement for an abscess s/p lumbar spine surgery. His original surgery on his lower back was approximately 18 months ago and he has had multiple complications since that time. He underwent surgical debridement on 03/04/[address] Davila at [facility] in [place] and was discharged with a wound vac for healing by secondary intention with possible muscle flap closure in the future. He followed up with his surgeon on 04/18/17 for further evaluation and recommendations and they plan to close the wound with a muscle flap but he continues to develop infections. He is also being seen by Infectious Disease. Progress of Wound: Cuong returns for a follow up visit for his nonhealing wound of his lower back s/p surgical complications. He has been being treated with a wound vac and has continued to have improvements although very slowly due to his complicated case and co-morbidities. His wound culture showed MRSA and ID was consulted and he has been placed on oral Linezolid based on sensitivities. The snap vac did not work when placed last week due to the large amount of drainage that he had. Regular wound vac was placed on Saturday. He continues to have pain but less drainage at the base/distal portion of his wound. Tolerating antibiotics well. No fever or chills. - Physical Exam Vital Signs Temp Pulse Resp BP 97.4 F L 61 20 H 127/64 H 10/25/17 12:34 10/25/17 12:34 10/25/17 12:34 10/25/17 12:34 General: Alert, Oriented x3, Cooperative, No apparent distress HEENT: Atraumatic, Normocephalic Oral: Moist Mucosa Skin: Ulcer/ Wound Wound Measurements and Assessment WC - Nurse 1 - General Ulcer Measurement Start: 10/18/17 12:38 Freq: Status: Active Protocol: Activity Type Activity Date Activity User E-Sign Co-Sign Detail Recorded Client Recorded Date Recorded By Document 10/23/17 11:43 BM [id number] 10/23/17 11:53 BMF Document 10/25/17 12:34 DL [id number] 10/25/17 12:46 DL 10/23/17 10/25/17 11:43 12:34 Wound Center Nurse 1 [Ulcer Assessment] #9 Lower Lumbar- Midline -Combined with other wound No -Current Size (cm) - Length 13.7 13.8 -Current Size (cm) - Width 4.5 3.4 -Current Size (cm) - Depth 0.9 1 -Total Square Cm 61.65 46.92 -Photo Taken No No -Epithelialization None Present -Undermining/Tunneling Yes -Undermining/Tunneling Starts (O' 6 clock) -Undermining/Tunneling Ends (O'clock) 2 -Maximum Distance (cm) 1.4 -Classification - Thickness Full Thickness with Exposed Support Structure -Exudate Amt Large (67-100%) -Exudate Type Serosanguineous -Wound Margin Thickened & Rolled Under -Granulation Amt Medium (34-66%) -Granulation Quality [place] -Necrosis Amt Medium (34-66%) -Necrotic Tissue Type Adherent Slough -Structure Exposed N/A -Texture (Uma-wound Skin Appearance) Scarring -Moisture (Uma-wound Skin Appearance No Abnormality ) -Color (Uma-wound Skin Appearance) No Abnormality -Temperature (Uma-wound Skin No Abnormality Appearance) (Pt Warm) -Ulcer Cleansing Wound Cleanser -Foul Odor after Cleansing No -Anesthetic Used 4% Lidocaine Solution WC - Nurse 2 - General Ulcer CM Notes Start: 10/18/17 12:38 Freq: Status: Active Protocol: Activity Type Activity Date Activity User E-Sign Co-Sign Detail Recorded Client Recorded Date Recorded By Document 10/25/17 13:17 SELENA [id number] 10/25/17 13:46 10/25/17 13:17 Wound Center Nurse 2 [Procedure/Treatment] -Time 13:17 -Correct Patient Yes -Correct Side, Site, Position Yes -Correct Procedure Yes -Procedure Performed Yes -Type of Procedure Debridement -Clinical Debridement Muscle -Post Debridement Size (cm) - Length 14 -Post Debridement Size (cm) - Width 4.5 -Post Debridement Size (cm) - Depth 0.8 -Total Square Cm 63.0 -Wound/Ulcer Outcome Not Healed -Ulcer Cleansing Rinsed/ Irrigated with Saline -Foul Odor after Cleansing No -Bioengineered Tissue No -Topical Lidocaine (%) 4 -Lidocaine (ml) 15 -Bleeding Controlled with NA -Treatment Response Procedure Tolerated Well [See Physician Procedure note for Specifics] Pain Scale: 0-10 Numeric [Pain] -Is Patient Pain Free? Yes Psych/Mental Status: Normal Affect, Appropriate Debridement Note Post-Debridement Measurements/Treatment WC - Nurse 2 - General Ulcer CM Notes Start: 10/18/17 12:38 Freq: Status: Active Protocol: Activity Type Activity Date Activity User E-Sign Co-Sign Detail Recorded Client Recorded Date Recorded By Document 10/18/17 13:30 DV [id number] 10/18/17 19:49 DV Document 10/25/17 13:17 [id number] 10/25/17 13:46 10/18/17 10/25/17 13:30 13:17 Wound Center Nurse 2 #9 Lower Lumbar- Midline -Time 13:30 13:17 -Correct Patient Yes Yes -Correct Side, Site, Position Yes Yes -Correct Procedure Yes Yes -Procedure Performed Yes Yes -Type of Procedure Debridement Debridement -Clinical Debridement Subcutaneous Muscle -Post Debridement Size (cm) - Length 14.5 14 -Post Debridement Size (cm) - Width 5.0 4.5 -Post Debridement Size (cm) - Depth 0.8 0.8 -Total Square Cm 72.50 63.0 -Wound/Ulcer Outcome Not Healed Not Healed -Ulcer Cleansing Rinsed/ Rinsed/ Irrigated with Irrigated with Saline Saline -Foul Odor after Cleansing No No -Bioengineered Tissue No No -Topical Lidocaine (%) 4 -Lidocaine (ml) 15 -Bleeding Controlled with Pressure NA -Treatment Response Procedure Procedure Tolerated Well Tolerated Well Pain Scale: 0-10 Numeric Is Patient Pain Free? Yes Yes Wound debrided: lower lumbar midline Laterality: Not Applicable Type of Debridement: Excisional debridement Anesthesia Used: 4% Lidocaine Solution Depth: Down to and including healthy tissue, in the subcutaneous layer, to muscle Percentage of wound debrided: 100 Instrument Used: 7mm curette, #10 blade, Forceps Tissue Removed: devitalized tissue, slough, fibrous exudate Severity: Necrosis of Muscle Amount of bleeding with debridement: Mild Bleeding Controlled with: Compression and gauze Patient tolerated procedure well Assessment/Plan Active Problems (Last Reviewed 08/27/17 @ 10:52 by Marzena Jackson) Nonhealing surgical wound (Chronic) Open wound of lower back (Chronic) Cellulitis (Acute) Chronic kidney disease (Chronic) Assessment: chronic surgical wound dehiscence lumbar with complex abscess and recent surgical debridement. malnutrition. other multiple comorbidities. edema bilateral lower extremities. venous insufficiency. immunocompromised status. Plan: His wound was debrided today. He will continue Linezolid and will switch to the SNAP vac on Saturday if his drainage is improved. Without a vac he develops significant slough and has developed abscess and infection. It is imperative to the improvement of his wound and for potential surgical closure that he continues with vac treatment either with SNAP vac or conventional wound vac therapy. Continue wound vac at 125mmHg. Ensure good hygiene and minimal contact with wound. Continue high protein diet. Follow up in 1 week and on Saturday for [place] to change to SNAP vac. This note was generated with [employer] software. It may contain incorrect words, spelling, and punctuation that were not noted in checking the note before signing.
[2017-10-28 12:05] VITALS: BP 132/63; PULSE 74; RESP 16; TEMP 36; BMI 56.5
--- NOTE | 2017-10-28 12:33 | PCM.WC.HP ---
(1) History of non-Hodgkin's lymphoma Status: Chronic Current Visit: No Code(s): Z85.72 - Personal history of non-Hodgkin lymphomas (2) Chronic kidney disease Status: Chronic Current Visit: No Qualifiers: Chronic kidney disease stage: stage 3 (moderate) Qualified Code(s): N18.3 - Chronic kidney disease, stage 3 (moderate) Code(s): N18.9 - Chronic kidney disease, unspecified (3) Nonhealing surgical wound Status: Chronic Current Visit: Yes Qualifiers: Encounter type: initial encounter Qualified Code(s): T81.89XA - Other complications of procedures, not elsewhere classified, initial encounter Code(s): T81.89XA - Other complications of procedures, not elsewhere classified, initial encounter (4) Open wound of lower back Status: Chronic Current Visit: Yes Code(s): S31.000A - Unspecified open wound of lower back and pelvis without penetration into retroperitoneum, initial encounter (5) Ascending aorta dilatation Status: Chronic Current Visit: No Code(s): I77.810 - Thoracic aortic ectasia (6) Paroxysmal atrial fibrillation Status: Chronic Current Visit: No Code(s): I48.0 - Paroxysmal atrial fibrillation (7) Pulmonary hypertension Status: Chronic Current Visit: No Code(s): I27.20 - Pulmonary hypertension, unspecified History of Present Illness Date of Service: 10/28/17 Chief Complaint: Nonhealing surgical wound of lower back History of Wound: Mr. Marshall is a 72-yo who has been seen here at the wound center for a nonhealing surgical wound of his lower back s/p surgical debridement for an abscess s/p lumbar spine surgery. His original surgery on his lower back was approximately 18 months ago and he has had multiple complications since that time. He underwent surgical debridement on 03/04/[address] Davila at [facility] in [place] and was discharged with a wound vac for healing by secondary intention with possible muscle flap closure in the future. He followed up with his surgeon on 04/18/17 for further evaluation and recommendations and they plan to close the wound with a muscle flap but he continues to develop infections. He is also being seen by Infectious Disease. On today's date, October 28, 2017, I was asked to see the patient at the wound center where he had presented as a nurse visit for a change of his wound VAC. The wound VAC is the current modality used to treat a large open surgical wound in the lumbar area. Upon changing the dressing, a small bleeding site was encountered at the lower pole of the open wound, and had not responded to manual pressure which had been applied. I was asked to see the patient for control of a small amount of bleeding at the site, which did not appear to be responding to manual pressure. Initial intervention involved the use of silver nitrate sticks, which did not appear to be effective in controlling the small amount of bleeding from the very localized site in the inferior portion of the wound. Therefore, Surgifoam applied topically, and held in place manually for several minutes. At this juncture, the bleeding appeared to be eliminated, and the site remained dry. The nursing staff was instructed to observe the area for at least several more minutes, after which reapplication of the wound VAC, with the Surgifoam remaining in place, was recommended. 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 Wound debridement 03/04/2017, 05/14/2017 at [facility]> Allergies/Adverse Reactions: Allergies chlorthalidone Allergy (Verified 08/27/17 10:46) Unknown ramipril [From Altace] Allergy (Verified 08/27/17 10:46) Unknown sulfamethoxazole [From Bactrim] Allergy (Verified 08/27/17 10:46) Other trazodone Allergy (Verified 08/27/17 10:46) Unknown trimethoprim [From Bactrim] Allergy (Verified 08/27/17 10:46) Other prednisone Adverse Reaction (Verified 08/27/17 10:46) Swelling Home Medications: Ambulatory Orders Medication Instructions Recorded Folic Acid 1 mg PO DAILY@0800 02/05/16 Magnesium Oxide [Magnesium] 400 mg PO DAILY@0800 02/05/16 Cholecalciferol (Vitamin D3) 1,000 unit PO DAILY@0800 10/14/16 [Vitamin D3] Gabapentin [Neurontin] 100 mg PO TIDCM 07/04/17 Vit C/E/Zn/Coppr/Lutein/Zeaxan 2 ea PO QHS 07/04/17 [Preservision Areds 2 Softgel] Acetaminophen [Tylenol] 1,000 mg PO Q8H PRN tab 07/12/17 Lactobacillus Acidophilus 1 tab PO BID #60 tab 07/12/17 [Acidophilus] Melatonin 3 mg PO QHS #30 tab 07/12/17 Mineral Oil/Petrolatum,White 1 applic TOPICAL BID PRN PRN jar 07/12/17 [Eucerin] Oxycodone HCl 30 mg PO Q4H PRN PRN 07/23/17 B-complex with vitamin C tablet 1 tab PO QDAY 08/27/17 apixaban 5 mg tablet 2.5 mg PO BID tab 08/27/17 ferrous fumarate 325 mg (106 mg 325 mg PO BID tab 08/27/17 iron) tablet furosemide 40 mg tablet 40 mg PO QDAY #90 tab 08/27/17 atorvastatin 20 mg tablet 20 mg PO QHS #90 tab 09/04/17 metoprolol succinate ER 25 mg 12.5 mg PO DAILY #90 tab 09/04/17 tablet,extended release 24 hr - Family History Maternal Family History: Family History (Last Reviewed 08/27/17 @ 10:52 by Marzena Jackson) Father Diabetes Heart disease Mother Heart disease Heart Disease Paternal Family History: Family History (Last Reviewed 08/27/17 @ 10:52 by Marzena Jackson) Father Diabetes Heart disease Mother Heart disease Diabetes Smoking Status: Former smoker Tobacco Use: Non-smoker Review of Systems Constitutional: Denies: Chills, Fever, Weight Change Eyes: Denies: Pain, Vision Change HEENT: Denies: Difficulty Hearing, Difficulty Swallowing, Sinus Congestion Cardiovascular: Denies: Chest Pain, Palpitations Respiratory: Denies: Cough, Shortness of Breath Gastrointestinal: Denies: Diarrhea, Nausea, Vomiting Genitourinary: Denies: Dysuria, Hematuria Endocrine: Denies: Heat/ Cold Intolerance, Polydipsia, Polyuria Hematologic/ Lymphatic: Denies: Easy Bruising, Easy Bleeding - Physical Exam Vital Signs Temp Pulse Resp BP 97.4 F L 61 20 H 127/64 H 10/25/17 12:34 10/25/17 12:34 10/25/17 12:34 10/25/17 12:34 General: Alert, Oriented x3, Cooperative, No apparent distress, Well developed, Well nourished HEENT: Atraumatic, PERRLA, EOMI, Normocephalic Oral: Moist Mucosa Neck: No JVD Lungs: Normal air movement Abdomen: Non-Distended Extremities: No clubbing, No cyanosis, No edema Skin: No rashes, - - A large open surgical wound is noted in the lumbar area. The wound appears generally pink and healthy in appearance. There is no sign of infection or cellulitis. Within the base of the wound, near the inferior pole, is a very small area of bleeding, which appeared to respond to the topical application of Surgifoam. Wound Measurements and Assessment WC - Nurse 1 - General Ulcer Measurement Start: 10/18/17 12:38 Freq: Status: Active Protocol: Activity Type Activity Date Activity User E-Sign Co-Sign Detail Recorded Client Recorded Date Recorded By Document 10/25/17 12:34 DL [id number] 10/25/17 12:46 DL 10/25/17 12:34 Wound Center Nurse 1 [Ulcer Assessment] #9 Lower Lumbar- Midline -Current Size (cm) - Length 13.8 -Current Size (cm) - Width 3.4 -Current Size (cm) - Depth 1 -Total Square Cm 46.92 -Photo Taken No -Undermining/Tunneling Yes -Undermining/Tunneling Starts (O' 6 clock) -Undermining/Tunneling Ends (O'clock) 2 -Maximum Distance (cm) 1.4 -Classification - Thickness Full Thickness with Exposed Support Structure -Exudate Amt Large (67-100%) -Exudate Type Serosanguineous -Wound Margin Thickened & Rolled Under -Granulation Amt Medium (34-66%) -Granulation Quality [place] -Necrosis Amt Medium (34-66%) -Necrotic Tissue Type Adherent Slough -Structure Exposed N/A -Texture (Uma-wound Skin Appearance) Scarring -Moisture (Uma-wound Skin Appearance No Abnormality ) -Color (Uma-wound Skin Appearance) No Abnormality -Temperature (Uma-wound Skin No Abnormality Appearance) (Pt Warm) -Ulcer Cleansing Wound Cleanser -Foul Odor after Cleansing No -Anesthetic Used 4% Lidocaine Solution WC - Nurse 2 - General Ulcer CM Notes Start: 10/18/17 12:38 Freq: Status: Active Protocol: Activity Type Activity Date Activity User E-Sign Co-Sign Detail Recorded Client Recorded Date Recorded By Document 10/25/17 13:17 SELENA [id number] 10/25/17 13:46 10/25/17 13:17 Wound Center Nurse 2 [Procedure/Treatment] -Time 13:17 -Correct Patient Yes -Correct Side, Site, Position Yes -Correct Procedure Yes -Procedure Performed Yes -Type of Procedure Debridement -Clinical Debridement Muscle -Post Debridement Size (cm) - Length 14 -Post Debridement Size (cm) - Width 4.5 -Post Debridement Size (cm) - Depth 0.8 -Total Square Cm 63.0 -Wound/Ulcer Outcome Not Healed -Ulcer Cleansing Rinsed/ Irrigated with Saline -Foul Odor after Cleansing No -Bioengineered Tissue No -Topical Lidocaine (%) 4 -Lidocaine (ml) 15 -Bleeding Controlled with NA -Treatment Response Procedure Tolerated Well [See Physician Procedure note for Specifics] Pain Scale: 0-10 Numeric [Pain] -Is Patient Pain Free? Yes Musculoskeletal: No Muscle Wasting Neurological: Cranial nerves II-XII grossly intact, Neuro grossly intact Psych/Mental Status: Normal Affect, Appropriate, Alert and oriented to time, place, person, mood and affect Debridement Note Post-Debridement Measurements/Treatment - Nurse 2 - General Ulcer CM Notes Start: 10/18/17 12:38 Freq: Status: Active Protocol: Activity Type Activity Date Activity User E-Sign Co-Sign Detail Recorded Client Recorded Date Recorded By Document 10/18/17 13:30 DV [id number] 10/18/17 19:49 DV Document 10/25/17 13:17 SELENA [id number] 10/25/17 13:46 10/18/17 10/25/17 13:30 13:17 Wound Center Nurse 2 #9 Lower Lumbar- Midline -Time 13:30 13:17 -Correct Patient Yes Yes -Correct Side, Site, Position Yes Yes -Correct Procedure Yes Yes -Procedure Performed Yes Yes -Type of Procedure Debridement Debridement -Clinical Debridement Subcutaneous Muscle -Post Debridement Size (cm) - Length 14.5 14 -Post Debridement Size (cm) - Width 5.0 4.5 -Post Debridement Size (cm) - Depth 0.8 0.8 -Total Square Cm 72.50 63.0 -Wound/Ulcer Outcome Not Healed Not Healed -Ulcer Cleansing Rinsed/ Rinsed/ Irrigated with Irrigated with Saline Saline -Foul Odor after Cleansing No No -Bioengineered Tissue No No -Topical Lidocaine (%) 4 -Lidocaine (ml) 15 -Bleeding Controlled with Pressure NA -Treatment Response Procedure Procedure Tolerated Well Tolerated Well Pain Scale: 0-10 Numeric Is Patient Pain Free? Yes Yes No debridement was completed today Assessment/Plan Active Problems (Last Reviewed 08/27/17 @ 10:52 by Marzena Jackson) Nonhealing surgical wound (Chronic) Open wound of lower back (Chronic) Cellulitis (Acute) Assessment: chronic surgical wound dehiscence lumbar with complex abscess and recent surgical debridement. malnutrition. other multiple comorbidities. edema bilateral lower extremities. Bleeding site from within wound controlled with combination of silver nitrate and Surgifoam. Bleeding appears to be controlled. venous insufficiency. immunocompromised status. Plan: As documented above, small amount of bleeding was controlled in the wound healing center today, using a combination of silver nitrate sticks and Surgifoam applied topically. These measures appeared to be effective, and the patient was discharged following reapplication of his wound VAC. He will follow-up henceforth with his regular wound healing center physician. Continue wound VAC. Continue high protein diet. Routine implemented care will continue. This note was generated with [employer] software. It may contain incorrect words, spelling, and punctuation that were not noted in checking the note before signing.
--- NOTE | 2017-10-28 12:44 | HP.PCM_ITS ---
(1) History of non-Hodgkin's lymphoma Status: Chronic Current Visit: No Code(s): Z85.72 - Personal history of non- Hodgkin lymphomas (2) Chronic kidney disease Status: Chronic Current Visit: No Qualifiers: Chronic kidney disease stage: stage 3 (moderate) Qualified Code(s): N18.3 - Chronic kidney disease, stage 3 (moderate) Code(s): N18.9 - Chronic kidney disease, unspecified (3) Nonhealing surgical wound Status: Chronic Current Visit: Yes Qualifiers: Encounter type: initial encounter Qualified Code(s): T81.89XA - Other complications of procedures, not elsewhere classified, initial encounter Code(s): T81.89XA - Other complications of procedures, not elsewhere classified , initial encounter (4) Open wound of lower back Status: Chronic Current Visit: Yes Code(s): S31.000A - Unspecified open wound of lower back and pelvis without penetration into retroperitoneum, initial encounter (5) Ascending aorta dilatation Status: Chronic Current Visit: No Code(s): I77.810 - Thoracic aortic ectasia (6) Paroxysmal atrial fibrillation Status: Chronic Current Visit: No Code(s): I48.0 - Paroxysmal atrial fibrillation (7) Pulmonary hypertension Status: Chronic Current Visit: No Code(s): I27.20 - Pulmonary hypertension, unspecified History of Present Illness Date of Service: 10/28/17 Chief Complaint: Nonhealing surgical wound of lower back History of Wound: Mr. Marshall is a 72-yo who has been seen here at the wound center for a nonhealing surgical wound of his lower back s/p surgical debridement for an abscess s/p lumbar spine surgery. His original surgery on his lower back was approximately 18 months ago and he has had multiple complications since that time. He underwent surgical debridement on 03/04/[address] Davila at [facility] in [place] and was discharged with a wound vac for healing by secondary intention with possible muscle flap closure in the future. He followed up with his surgeon on 04/18/17 for further evaluation and recommendations and they plan to close the wound with a muscle flap but he continues to develop infections. He is also being seen by Infectious Disease. On today's date, October 28, 2017, I was asked to see the patient at the wound center where he had presented as a nurse visit for a change of his wound VAC. The wound VAC is the current modality used to treat a large open surgical wound in the lumbar area. Upon changing the dressing, a small bleeding site was encountered at the lower pole of the open wound, and had not responded to manual pressure which had been applied. I was asked to see the patient for control of a small amount of bleeding at the site, which did not appear to be responding to manual pressure. Initial intervention involved the use of silver nitrate sticks, which did not appear to be effective in controlling the small amount of bleeding from the very localized site in the inferior portion of the wound. Therefore, Surgifoam applied topically, and held in place manually for several minutes. At this juncture, the bleeding appeared to be eliminated, and the site remained dry. The nursing staff was instructed to observe the area for at least several more minutes, after which reapplication of the wound VAC, with the Surgifoam remaining in place, was recommended. 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 Wound debridement 03/04/2017, 05/14/2017 at [facility]> Allergies/Adverse Reactions: Allergies chlorthalidone Allergy (Verified 08/27/17 10:46) Unknown ramipril [From Altace] Allergy (Verified 08/27/17 10:46) Unknown sulfamethoxazole [From Bactrim] Allergy (Verified 08/27/17 10:46) Other trazodone Allergy (Verified 08/27/17 10:46) Unknown trimethoprim [From Bactrim] Allergy (Verified 08/27/17 10:46) Other prednisone Adverse Reaction (Verified 08/27/17 10:46) Swelling Home Medications: Ambulatory Orders Medication Instructions Recorded Folic Acid 1 mg PO DAILY@0800 02/05/16 Magnesium Oxide [Magnesium] 400 mg PO DAILY@0800 02/05/16 Cholecalciferol (Vitamin D3) 1,000 unit PO DAILY@0800 10/14/16 [Vitamin D3] Gabapentin [Neurontin] 100 mg PO TIDCM 07/04/17 Vit C/E/Zn/Coppr/Lutein/Zeaxan 2 ea PO QHS 07/04/17 [Preservision Areds 2 Softgel] Acetaminophen [Tylenol] 1,000 mg PO Q8H PRN tab 07/12/17 Lactobacillus Acidophilus 1 tab PO BID #60 tab 07/12/17 [Acidophilus] Melatonin 3 mg PO QHS #30 tab 07/12/17 Mineral Oil/Petrolatum,White 1 applic TOPICAL BID PRN PRN jar 07/12/17 [Eucerin] Oxycodone HCl 30 mg PO Q4H PRN PRN 07/23/17 B-complex with vitamin C tablet 1 tab PO QDAY 08/27/17 apixaban 5 mg tablet 2.5 mg PO BID tab 08/27/17 ferrous fumarate 325 mg (106 mg 325 mg PO BID tab 08/27/17 iron) tablet furosemide 40 mg tablet 40 mg PO QDAY #90 tab 08/27/17 atorvastatin 20 mg tablet 20 mg PO QHS #90 tab 09/04/17 metoprolol succinate ER 25 mg 12.5 mg PO DAILY #90 tab 09/04/17 tablet,extended release 24 hr - Family History Maternal Family History: Family History (Last Reviewed 08/27/17 @ 10:52 by Marzena Jackson) Father Diabetes Heart disease Mother Heart disease Heart Disease Paternal Family History: Family History (Last Reviewed 08/27/17 @ 10:52 by Marzena Jackson) Father Diabetes Heart disease Mother Heart disease Diabetes Smoking Status: Former smoker Tobacco Use: Non-smoker Review of Systems Constitutional: Denies: Chills, Fever, Weight Change Eyes: Denies: Pain, Vision Change HEENT: Denies: Difficulty Hearing, Difficulty Swallowing, Sinus Congestion Cardiovascular: Denies: Chest Pain, Palpitations Respiratory: Denies: Cough, Shortness of Breath Gastrointestinal: Denies: Diarrhea, Nausea, Vomiting Genitourinary: Denies: Dysuria, Hematuria Endocrine: Denies: Heat/ Cold Intolerance, Polydipsia, Polyuria Hematologic/ Lymphatic: Denies: Easy Bruising, Easy Bleeding - Physical Exam Vital Signs Temp Pulse Resp BP 97.4 F L 61 20 H 127/64 H 10/25/17 12:34 10/25/17 12:34 10/25/17 12:34 10/25/17 12:34 General: Alert, Oriented x3, Cooperative, No apparent distress, Well developed, Well nourished HEENT: Atraumatic, PERRLA, EOMI, Normocephalic Oral: Moist Mucosa Neck: No JVD Lungs: Normal air movement Abdomen: Non-Distended Extremities: No clubbing, No cyanosis, No edema Skin: No rashes, - - A large open surgical wound is noted in the lumbar area. The wound appears generally pink and healthy in appearance. There is no sign of infection or cellulitis. Within the base of the wound, near the inferior pole, is a very small area of bleeding, which appeared to respond to the topical application of Surgifoam. Wound Measurements and Assessment WC - Nurse 1 - General Ulcer Measurement Start: 10/18/17 12:38 Freq: Status: Active Protocol: Activity Type Activity Date Activity User E-Sign Co-Sign Detail Recorded Client Recorded Date Recorded By Document 10/25/17 12:34 DL [id number] 10/25/17 12:46 DL 10/25/17 12:34 Wound Center Nurse 1 [Ulcer Assessment] #9 Lower Lumbar- Midline -Current Size (cm) - Length 13.8 -Current Size (cm) - Width 3.4 -Current Size (cm) - Depth 1 -Total Square Cm 46.92 -Photo Taken No -Undermining/Tunneling Yes -Undermining/Tunneling Starts (O' 6 clock) -Undermining/Tunneling Ends (O'clock) 2 -Maximum Distance (cm) 1.4 -Classification - Thickness Full Thickness with Exposed Support Structure -Exudate Amt Large (67-100%) -Exudate Type Serosanguineous -Wound Margin Thickened & Rolled Under -Granulation Amt Medium (34-66%) -Granulation Quality [place] -Necrosis Amt Medium (34-66%) -Necrotic Tissue Type Adherent Slough -Structure Exposed N/A -Texture (Uma-wound Skin Appearance) Scarring -Moisture (Uma-wound Skin Appearance No Abnormality ) -Color (Uma-wound Skin Appearance) No Abnormality -Temperature (Uma-wound Skin No Abnormality Appearance) (Pt Warm) -Ulcer Cleansing Wound Cleanser -Foul Odor after Cleansing No -Anesthetic Used 4% Lidocaine Solution WC - Nurse 2 - General Ulcer CM Notes Start: 10/18/17 12:38 Freq: Status: Active Protocol: Activity Type Activity Date Activity User E-Sign Co-Sign Detail Recorded Client Recorded Date Recorded By Document 10/25/17 13:17 SELENA [id number] 10/25/17 13:46 10/25/17 13:17 Wound Center Nurse 2 [Procedure/Treatment] -Time 13:17 -Correct Patient Yes -Correct Side, Site, Position Yes -Correct Procedure Yes -Procedure Performed Yes -Type of Procedure Debridement -Clinical Debridement Muscle -Post Debridement Size (cm) - Length 14 -Post Debridement Size (cm) - Width 4.5 -Post Debridement Size (cm) - Depth 0.8 -Total Square Cm 63.0 -Wound/Ulcer Outcome Not Healed -Ulcer Cleansing Rinsed/ Irrigated with Saline -Foul Odor after Cleansing No -Bioengineered Tissue No -Topical Lidocaine (%) 4 -Lidocaine (ml) 15 -Bleeding Controlled with NA -Treatment Response Procedure Tolerated Well [See Physician Procedure note for Specifics] Pain Scale: 0-10 Numeric [Pain] -Is Patient Pain Free? Yes Musculoskeletal: No Muscle Wasting Neurological: Cranial nerves II-XII grossly intact, Neuro grossly intact Psych/Mental Status: Normal Affect, Appropriate, Alert and oriented to time, place, person, mood and affect Debridement Note Post-Debridement Measurements/Treatment - Nurse 2 - General Ulcer CM Notes Start: 10/18/17 12:38 Freq: Status: Active Protocol: Activity Type Activity Date Activity User E-Sign Co-Sign Detail Recorded Client Recorded Date Recorded By Document 10/18/17 13:30 DV [id number] 10/18/17 19:49 DV Document 10/25/17 13:17 SELENA [id number] 10/25/17 13:46 10/18/17 10/25/17 13:30 13:17 Wound Center Nurse 2 #9 Lower Lumbar- Midline -Time 13:30 13:17 -Correct Patient Yes Yes -Correct Side, Site, Position Yes Yes -Correct Procedure Yes Yes -Procedure Performed Yes Yes -Type of Procedure Debridement Debridement -Clinical Debridement Subcutaneous Muscle -Post Debridement Size (cm) - Length 14.5 14 -Post Debridement Size (cm) - Width 5.0 4.5 -Post Debridement Size (cm) - Depth 0.8 0.8 -Total Square Cm 72.50 63.0 -Wound/Ulcer Outcome Not Healed Not Healed -Ulcer Cleansing Rinsed/ Rinsed/ Irrigated with Irrigated with Saline Saline -Foul Odor after Cleansing No No -Bioengineered Tissue No No -Topical Lidocaine (%) 4 -Lidocaine (ml) 15 -Bleeding Controlled with Pressure NA -Treatment Response Procedure Procedure Tolerated Well Tolerated Well Pain Scale: 0-10 Numeric Is Patient Pain Free? Yes Yes No debridement was completed today Assessment/Plan Active Problems (Last Reviewed 08/27/17 @ 10:52 by Marzena Jackson) Nonhealing surgical wound (Chronic) Open wound of lower back (Chronic) Cellulitis (Acute) Assessment: chronic surgical wound dehiscence lumbar with complex abscess and recent surgical debridement. malnutrition. other multiple comorbidities. edema bilateral lower extremities. Bleeding site from within wound controlled with combination of silver nitrate and Surgifoam. Bleeding appears to be controlled. venous insufficiency. immunocompromised status. Plan: As documented above, small amount of bleeding was controlled in the wound healing center today, using a combination of silver nitrate sticks and Surgifoam applied topically. These measures appeared to be effective, and the patient was discharged following reapplication of his wound VAC. He will follow -up henceforth with his regular wound healing center physician. Continue wound VAC. Continue high protein diet. Routine implemented care will continue. This note was generated with [employer] software. It may contain incorrect words, spelling, and punctuation that were not noted in checking the note before signing.
[2017-11-01 12:56] VITALS: BP 121/78; PULSE 76; RESP 18; TEMP 36.6; BMI 56.5
--- NOTE | 2017-11-01 19:34 | PCM.WC.PN ---
(1) Nonhealing surgical wound Status: Chronic Current Visit: Yes Qualifiers: Encounter type: initial encounter Qualified Code(s): T81.89XA - Other complications of procedures, not elsewhere classified, initial encounter Code(s): T81.89XA - Other complications of procedures, not elsewhere classified, initial encounter (2) Open wound of lower back Status: Chronic Current Visit: Yes Code(s): S31.000A - Unspecified open wound of lower back and pelvis without penetration into retroperitoneum, initial encounter (3) Chronic kidney disease Status: Chronic Current Visit: Yes Qualifiers: Chronic kidney disease stage: stage 3 (moderate) Qualified Code(s): N18.3 - Chronic kidney disease, stage 3 (moderate) Code(s): N18.9 - Chronic kidney disease, unspecified (4) Cellulitis Status: Acute Current Visit: Yes Qualifiers: Site of cellulitis: trunk Site of cellulitis of trunk: back Qualified Code(s): L03.312 - Cellulitis of back [any part except buttock] Code(s): L03.90 - Cellulitis, unspecified Type of Wound Date of Service: 11/01/17 Chief Complaint: Nonhealing surgical wound of lower back History of Wound: Mr. Marshall is a 72-yo who has been seen here at the wound center for a nonhealing surgical wound of his lower back s/p surgical debridement for an abscess s/p lumbar spine surgery. His original surgery on his lower back was approximately 18 months ago and he has had multiple complications since that time. He underwent surgical debridement on 03/04/[address] Davila at [facility] in [place] and was discharged with a wound vac for healing by secondary intention with possible muscle flap closure in the future. He followed up with his surgeon on 04/18/17 for further evaluation and recommendations and they plan to close the wound with a muscle flap but he continues to develop infections. He is also being seen by Infectious Disease. On today's date, October 28, 2017, I was asked to see the patient at the wound center where he had presented as a nurse visit for a change of his wound VAC. The wound VAC is the current modality used to treat a large open surgical wound in the lumbar area. Upon changing the dressing, a small bleeding site was encountered at the lower pole of the open wound, and had not responded to manual pressure which had been applied. I was asked to see the patient for control of a small amount of bleeding at the site, which did not appear to be responding to manual pressure. Initial intervention involved the use of silver nitrate sticks, which did not appear to be effective in controlling the small amount of bleeding from the very localized site in the inferior portion of the wound. Therefore, Surgifoam applied topically, and held in place manually for several minutes. At this juncture, the bleeding appeared to be eliminated, and the site remained dry. The nursing staff was instructed to observe the area for at least several more minutes, after which reapplication of the wound VAC, with the Surgifoam remaining in place, was recommended. Progress of Wound: Cuong returns for a follow up visit for his nonhealing wound of his lower back s/p surgical complications. He has been being treated with a wound vac and has continued to have improvements although very slowly due to his complicated case and co-morbidities. He is tolerating the wound vac but would like to have a more minimal device as the traditional vac is heavy and has been increasing his back pain. Snap vac was not helpful due to drainage being too much but he may benefit from a DAVID system which could accomodate his drainage better without the bulkiness of the canister. His wound culture showed MRSA and ID was consulted and he has been placed on oral Linezolid based on sensitivities. Will do a culture today to evaluate for any residual infection. He finishes his linezolid on Saturday. He continues to have pain but less drainage at the base/distal portion of his wound. Tolerating antibiotics well. No fever or chills. - Physical Exam Vital Signs Temp Pulse Resp BP 97.8 F 76 18 121/78 H 11/01/17 12:56 11/01/17 12:56 11/01/17 12:56 11/01/17 12:56 General: Alert, Oriented x3, Cooperative, No apparent distress HEENT: Atraumatic, Normocephalic Abdomen: Soft, Non Tender Skin: Ulcer/ Wound Wound Measurements and Assessment WC - Nurse 1 - General Ulcer Measurement Start: 10/18/17 12:38 Freq: Status: Active Protocol: Activity Type Activity Date Activity User E-Sign Co-Sign Detail Recorded Client Recorded Date Recorded By Document 11/01/17 12:56 [id number] 11/01/17 13:20 11/01/17 12:56 Wound Center Nurse 1 [Ulcer Assessment] #9 Lower Lumbar- Midline -Combined with other wound No -Current Size (cm) - Length 13.5 -Current Size (cm) - Width 4 -Current Size (cm) - Depth 1 -Total Square Cm 54.0 -Photo Taken No -Epithelialization None Present -Tunneling No -Undermining/Tunneling No -Circular Undermining No -Exudate Amt Small (1-33%) -Exudate Type Serosanguineous -Wound Margin Distinct, Outline Attached -Granulation Amt Medium (34-66%) -Granulation Quality Pale [place] -Slough/Fibrin Yes -Necrosis Amt Medium (34-66%) -Necrotic Tissue Type Adherent Slough -Texture (Uma-wound Skin Appearance) Scarring -Moisture (Uma-wound Skin Appearance Assessed ) -Color (Uma-wound Skin Appearance) Erythema -Temperature (Uma-wound Skin No Abnormality Appearance) (Pt Warm) -Tenderness on Palpation (Uma-wound No Skin Appearance) -Ulcer Cleansing Wound Cleanser -Foul Odor after Cleansing No -Anesthetic Used 4% Lidocaine Solution - Nurse 2 - General Ulcer CM Notes Start: 10/18/17 12:38 Freq: Status: Active Protocol: Activity Type Activity Date Activity User E-Sign Co-Sign Detail Recorded Client Recorded Date Recorded By Document 11/01/17 14:04 [id number] 11/01/17 14:13 11/01/17 14:04 Wound Center Nurse 2 [Procedure/Treatment] -Time 14:11 -Correct Patient Yes -Correct Side, Site, Position Yes -Correct Procedure Yes -Procedure Performed Yes -Type of Procedure Debridement -Clinical Debridement Subcutaneous -Post Debridement Size (cm) - Length 13.8 -Post Debridement Size (cm) - Width 4.5 -Post Debridement Size (cm) - Depth 0.5 -Total Square Cm 62.10 -Wound/Ulcer Outcome Not Healed -Ulcer Cleansing Rinsed/ Irrigated with Saline -Foul Odor after Cleansing No -Bioengineered Tissue No -Topical Lidocaine (%) 4 -Bleeding Controlled with Pressure -Treatment Response Procedure Tolerated Well [See Physician Procedure note for Specifics] Pain Scale: 0-10 Numeric [Pain] -Is Patient Pain Free? Yes Psych/Mental Status: Normal Affect, Appropriate Debridement Note Post-Debridement Measurements/Treatment - Nurse 2 - General Ulcer CM Notes Start: 10/18/17 12:38 Freq: Status: Active Protocol: Activity Type Activity Date Activity User E-Sign Co-Sign Detail Recorded Client Recorded Date Recorded By Document 10/18/17 13:30 DV [id number] 10/18/17 19:49 DV Document 10/25/17 13:17 JS [id number] 10/25/17 13:46 JS Document 11/01/17 14:04 TM [id number] 11/01/17 14:13 TM 10/18/17 10/25/17 11/01/17 13:30 13:17 14:04 Wound Center Nurse 2 #9 Lower Lumbar- Midline -Time 13:30 13:17 14:11 -Correct Patient Yes Yes Yes -Correct Side, Site, Position Yes Yes Yes -Correct Procedure Yes Yes Yes -Procedure Performed Yes Yes Yes -Type of Procedure Debridement Debridement Debridement -Clinical Debridement Subcutaneous Muscle Subcutaneous -Post Debridement Size (cm) - Length 14.5 14 13.8 -Post Debridement Size (cm) - Width 5.0 4.5 4.5 -Post Debridement Size (cm) - Depth 0.8 0.8 0.5 -Total Square Cm 72.50 63.0 62.10 -Wound/Ulcer Outcome Not Healed Not Healed Not Healed -Ulcer Cleansing Rinsed/ Rinsed/ Rinsed/ Irrigated with Irrigated with Irrigated with Saline Saline Saline -Foul Odor after Cleansing No No No -Bioengineered Tissue No No No -Topical Lidocaine (%) 4 4 -Lidocaine (ml) 15 -Bleeding Controlled with Pressure NA Pressure -Treatment Response Procedure Procedure Procedure Tolerated Well Tolerated Well Tolerated Well Pain Scale: 0-10 Numeric Is Patient Pain Free? Yes Yes Yes Wound debrided: lower lumbar midline Laterality: Not Applicable Type of Debridement: Excisional debridement Anesthesia Used: 4% Lidocaine Solution Depth: Down to and including healthy tissue, in the subcutaneous layer Percentage of wound debrided: 100 Instrument Used: 5mm curette Tissue Removed: yellow slough, devitalized tissue Severity: Fat Layer Exposed Amount of bleeding with debridement: Mild Bleeding Controlled with: Compression and gauze Patient tolerated procedure well Assessment/Plan Active Problems (Last Reviewed 08/27/17 @ 10:52 by Marzena Jackson) Nonhealing surgical wound (Chronic) Open wound of lower back (Chronic) Cellulitis (Acute) Chronic kidney disease (Chronic) Assessment: chronic surgical wound dehiscence lumbar with complex abscess and recent surgical debridement. malnutrition. other multiple comorbidities. edema bilateral lower extremities. Bleeding site from within wound controlled with combination of silver nitrate and Surgifoam. Bleeding appears to be controlled. venous insufficiency. immunocompromised status. Plan: Cuong's wound was debrided today and he tolerated this well. The wound looks healthy and bleeding was mild today. Wound culture taken and will continue treatment with wound vac and have him return on Saturday for a change and then again on Saturday. If DAVID approved then would have this placed on Saturday and changed on Saturday. Continue high protein diet. F/U in 1 week. This note was generated with [employer] dictation software. It may contain incorrect words, spelling, and punctuation that were not noted in checking the note before signing.
--- NOTE | 2017-11-01 19:42 | PN.PCM_ITS ---
(1) Nonhealing surgical wound Status: Chronic Current Visit: Yes Qualifiers: Encounter type: initial encounter Qualified Code(s): T81.89XA - Other complications of procedures, not elsewhere classified, initial encounter Code(s): T81.89XA - Other complications of procedures, not elsewhere classified , initial encounter (2) Open wound of lower back Status: Chronic Current Visit: Yes Code(s): S31.000A - Unspecified open wound of lower back and pelvis without penetration into retroperitoneum, initial encounter (3) Chronic kidney disease Status: Chronic Current Visit: Yes Qualifiers: Chronic kidney disease stage: stage 3 (moderate) Qualified Code(s): N18.3 - Chronic kidney disease, stage 3 (moderate) Code(s): N18.9 - Chronic kidney disease, unspecified (4) Cellulitis Status: Acute Current Visit: Yes Qualifiers: Site of cellulitis: trunk Site of cellulitis of trunk: back Qualified Code(s): L03.312 - Cellulitis of back [any part except buttock] Code(s): L03.90 - Cellulitis, unspecified Type of Wound Date of Service: 11/01/17 Chief Complaint: Nonhealing surgical wound of lower back History of Wound: Mr. Marshall is a 72-yo who has been seen here at the wound center for a nonhealing surgical wound of his lower back s/p surgical debridement for an abscess s/p lumbar spine surgery. His original surgery on his lower back was approximately 18 months ago and he has had multiple complications since that time. He underwent surgical debridement on 03/04/[address] Davila at [facility] in [place] and was discharged with a wound vac for healing by secondary intention with possible muscle flap closure in the future. He followed up with his surgeon on 04/18/17 for further evaluation and recommendations and they plan to close the wound with a muscle flap but he continues to develop infections. He is also being seen by Infectious Disease. On today's date, October 28, 2017, I was asked to see the patient at the wound center where he had presented as a nurse visit for a change of his wound VAC. The wound VAC is the current modality used to treat a large open surgical wound in the lumbar area. Upon changing the dressing, a small bleeding site was encountered at the lower pole of the open wound, and had not responded to manual pressure which had been applied. I was asked to see the patient for control of a small amount of bleeding at the site, which did not appear to be responding to manual pressure. Initial intervention involved the use of silver nitrate sticks, which did not appear to be effective in controlling the small amount of bleeding from the very localized site in the inferior portion of the wound. Therefore, Surgifoam applied topically, and held in place manually for several minutes. At this juncture, the bleeding appeared to be eliminated, and the site remained dry. The nursing staff was instructed to observe the area for at least several more minutes, after which reapplication of the wound VAC, with the Surgifoam remaining in place, was recommended. Progress of Wound: Cuong returns for a follow up visit for his nonhealing wound of his lower back s/p surgical complications. He has been being treated with a wound vac and has continued to have improvements although very slowly due to his complicated case and co-morbidities. He is tolerating the wound vac but would like to have a more minimal device as the traditional vac is heavy and has been increasing his back pain. Snap vac was not helpful due to drainage being too much but he may benefit from a DAVID system which could accomodate his drainage better without the bulkiness of the canister. His wound culture showed MRSA and ID was consulted and he has been placed on oral Linezolid based on sensitivities. Will do a culture today to evaluate for any residual infection. He finishes his linezolid on Saturday. He continues to have pain but less drainage at the base/distal portion of his wound. Tolerating antibiotics well. No fever or chills. - Physical Exam Vital Signs Temp Pulse Resp BP 97.8 F 76 18 121/78 H 11/01/17 12:56 11/01/17 12:56 11/01/17 12:56 11/01/17 12:56 General: Alert, Oriented x3, Cooperative, No apparent distress HEENT: Atraumatic, Normocephalic Abdomen: Soft, Non Tender Skin: Ulcer/ Wound Wound Measurements and Assessment WC - Nurse 1 - General Ulcer Measurement Start: 10/18/17 12:38 Freq: Status: Active Protocol: Activity Type Activity Date Activity User E-Sign Co-Sign Detail Recorded Client Recorded Date Recorded By Document 11/01/17 12:56 [id number] 11/01/17 13:20 11/01/17 12:56 Wound Center Nurse 1 [Ulcer Assessment] #9 Lower Lumbar- Midline -Combined with other wound No -Current Size (cm) - Length 13.5 -Current Size (cm) - Width 4 -Current Size (cm) - Depth 1 -Total Square Cm 54.0 -Photo Taken No -Epithelialization None Present -Tunneling No -Undermining/Tunneling No -Circular Undermining No -Exudate Amt Small (1-33%) -Exudate Type Serosanguineous -Wound Margin Distinct, Outline Attached -Granulation Amt Medium (34-66%) -Granulation Quality Pale [place] -Slough/Fibrin Yes -Necrosis Amt Medium (34-66%) -Necrotic Tissue Type Adherent Slough -Texture (Uma-wound Skin Appearance) Scarring -Moisture (Uma-wound Skin Appearance Assessed ) -Color (Uma-wound Skin Appearance) Erythema -Temperature (Uma-wound Skin No Abnormality Appearance) (Pt Warm) -Tenderness on Palpation (Uma-wound No Skin Appearance) -Ulcer Cleansing Wound Cleanser -Foul Odor after Cleansing No -Anesthetic Used 4% Lidocaine Solution - Nurse 2 - General Ulcer CM Notes Start: 10/18/17 12:38 Freq: Status: Active Protocol: Activity Type Activity Date Activity User E-Sign Co-Sign Detail Recorded Client Recorded Date Recorded By Document 11/01/17 14:04 [id number] 11/01/17 14:13 11/01/17 14:04 Wound Center Nurse 2 [Procedure/Treatment] -Time 14:11 -Correct Patient Yes -Correct Side, Site, Position Yes -Correct Procedure Yes -Procedure Performed Yes -Type of Procedure Debridement -Clinical Debridement Subcutaneous -Post Debridement Size (cm) - Length 13.8 -Post Debridement Size (cm) - Width 4.5 -Post Debridement Size (cm) - Depth 0.5 -Total Square Cm 62.10 -Wound/Ulcer Outcome Not Healed -Ulcer Cleansing Rinsed/ Irrigated with Saline -Foul Odor after Cleansing No -Bioengineered Tissue No -Topical Lidocaine (%) 4 -Bleeding Controlled with Pressure -Treatment Response Procedure Tolerated Well [See Physician Procedure note for Specifics] Pain Scale: 0-10 Numeric [Pain] -Is Patient Pain Free? Yes Psych/Mental Status: Normal Affect, Appropriate Debridement Note Post-Debridement Measurements/Treatment - Nurse 2 - General Ulcer CM Notes Start: 10/18/17 12:38 Freq: Status: Active Protocol: Activity Type Activity Date Activity User E-Sign Co-Sign Detail Recorded Client Recorded Date Recorded By Document 10/18/17 13:30 DV [id number] 10/18/17 19:49 DV Document 10/25/17 13:17 JS [id number] 10/25/17 13:46 JS Document 11/01/17 14:04 TM [id number] 11/01/17 14:13 TM 10/18/17 10/25/17 11/01/17 13:30 13:17 14:04 Wound Center Nurse 2 #9 Lower Lumbar- Midline -Time 13:30 13:17 14:11 -Correct Patient Yes Yes Yes -Correct Side, Site, Position Yes Yes Yes -Correct Procedure Yes Yes Yes -Procedure Performed Yes Yes Yes -Type of Procedure Debridement Debridement Debridement -Clinical Debridement Subcutaneous Muscle Subcutaneous -Post Debridement Size (cm) - Length 14.5 14 13.8 -Post Debridement Size (cm) - Width 5.0 4.5 4.5 -Post Debridement Size (cm) - Depth 0.8 0.8 0.5 -Total Square Cm 72.50 63.0 62.10 -Wound/Ulcer Outcome Not Healed Not Healed Not Healed -Ulcer Cleansing Rinsed/ Rinsed/ Rinsed/ Irrigated with Irrigated with Irrigated with Saline Saline Saline -Foul Odor after Cleansing No No No -Bioengineered Tissue No No No -Topical Lidocaine (%) 4 4 -Lidocaine (ml) 15 -Bleeding Controlled with Pressure NA Pressure -Treatment Response Procedure Procedure Procedure Tolerated Well Tolerated Well Tolerated Well Pain Scale: 0-10 Numeric Is Patient Pain Free? Yes Yes Yes Wound debrided: lower lumbar midline Laterality: Not Applicable Type of Debridement: Excisional debridement Anesthesia Used: 4% Lidocaine Solution Depth: Down to and including healthy tissue, in the subcutaneous layer Percentage of wound debrided: 100 Instrument Used: 5mm curette Tissue Removed: yellow slough, devitalized tissue Severity: Fat Layer Exposed Amount of bleeding with debridement: Mild Bleeding Controlled with: Compression and gauze Patient tolerated procedure well Assessment/Plan Active Problems (Last Reviewed 08/27/17 @ 10:52 by Marzena Jackson) Nonhealing surgical wound (Chronic) Open wound of lower back (Chronic) Cellulitis (Acute) Chronic kidney disease (Chronic) Assessment: chronic surgical wound dehiscence lumbar with complex abscess and recent surgical debridement. malnutrition. other multiple comorbidities. edema bilateral lower extremities. Bleeding site from within wound controlled with combination of silver nitrate and Surgifoam. Bleeding appears to be controlled. venous insufficiency. immunocompromised status. Plan: Cuong's wound was debrided today and he tolerated this well. The wound looks healthy and bleeding was mild today. Wound culture taken and will continue treatment with wound vac and have him return on Saturday for a change and then again on Saturday. If DAVID approved then would have this placed on Saturday and changed on Saturday. Continue high protein diet. F/U in 1 week. This note was generated with [employer] dictation software. It may contain incorrect words, spelling, and punctuation that were not noted in checking the note before signing.
== END 2017-11-02 23:59 ==
LOC: WC 13:00
PROVIDERS: Family Provider Family Medicine; PCP Family Medicine; Visit Provider Family Medicine
DX: T81.31XA Disruption of external operation (surgical) wound, not elsewhere classified, initial encounter (principal); Z85.72 Personal history of non-Hodgkin lymphomas; I48.0 Paroxysmal atrial fibrillation; I77.810 Thoracic aortic ectasia; T81.4XXA Infection following a procedure, initial encounter; B99.8 Other infectious disease; I27.20 Pulmonary hypertension, unspecified; I12.9 Hypertensive chronic kidney disease with stage 1 through stage 4 chronic kidney disease, or unspecified chronic kidney disease; Z86.711 Personal history of pulmonary embolism; I73.9 Peripheral vascular disease, unspecified; Z87.891 Personal history of nicotine dependence
CPT/HCPCS: 11042; 11043; 11045; 11046; 17250; 87070; 87075; 87077; 87186; 87205; 97606; 97608; 99212; 99213; G0463

== ENCOUNTER → 2017-11-15 09:59 | Outpatient (CLI) | payer MEDICARE, OTHER, SELFPAY ==
[2015-10-31 10:00] VITALS: BMI 34.9
[2017-11-15 10:34] LABS: Hematocrit 29.4 % (40-54); Hemoglobin 9.5 g/dl (13.0-16.5)
[2017-11-15 11:48] VITALS: BP 128/64; PULSE 68; RESP 16; TEMP 36.4; O2SAT 97
== END ==
PROVIDERS: Family Provider Family Medicine; PCP Family Medicine; Visit Provider Internal Medicine Nephrology
DX: N18.3 Chronic kidney disease, stage 3 (moderate) (principal); D63.1 Anemia in chronic kidney disease; T81.4XXA Infection following a procedure, initial encounter; L03.312 Cellulitis of back [any part except buttock and flank]; T81.30XA Disruption of wound, unspecified, initial encounter; Y83.8 Other surgical procedures as the cause of abnormal reaction of the patient, or of later complication, without mention of misadventure at the time of the procedure; I87.2 Venous insufficiency (chronic) (peripheral)
CPT/HCPCS: 11042; 11045; 36415; 85014; 85018; 87070; 87075; 87077; 87186; 87205; 96372; 97608; J0885

== ENCOUNTER → 2017-11-27 13:48 | Outpatient (CLI) | payer MEDICARE, OTHER, SELFPAY ==
[2015-10-31 10:00] VITALS: BMI 34.9
--- NOTE | 2017-11-27 13:49 | ECHOD_ITS ---
Reason For Study: SOB Procedure This was a 2D Doppler, Color Flow transthoracic echocardiogram. Exam performed in department. Left Ventricle Normal LV size. Left ventricular systolic function is normal. The estimated ejection fraction is 55 %. Transmitral doppler flow suggestive of impaired relaxation of left ventricle. Transmitral diastolic flow velocities suggest mild (stage 1) diastolic dysfunction (reversed pattern). No regional wall motion abnormalities noted. Right Ventricle Normal RV size. Normal systolic function. Atria The left atrium is mildly enlarged. Normal right atrium. Mitral Valve Normal mitral valve. Tricuspid Valve Normal tricuspid valve. Mild tricuspid valve insufficiency. Pulmonary artery systolic pressure is 36 mmHg. Aortic Valve Normal aortic valve. Pulmonic Valve Normal pulmonic valve. Great Vessels Normal aortic root. The pulmonary artery is normal size. Normal inferior vena cava. Pericardium/Pleural No pericardial effusion. MMode/2D Measurements & Calculations LVIDd: 5.5 cm IVSd: 1.00 cm LVOT diam: 2.0 cm LVIDs: 3.8 cm LVPWd: 1.1 cm LVOT area: 3.3 cm2 FS: 30.4 % Ao root diam: 4.5 cm LAV(MOD-bp): 83.9 ml Aortic Valve Planimetry: 2.1 cm2 LA dimension: 4.9 cm LAV(MOD-bp) Indexed: 44.1 ml/m2 LAV(MOD-sp2): 73.0 ml LAV(MOD-sp4): 80.3 ml LA A4 area: 22.8 cm2 RA A4 area: 12.1 cm2 Time Measurements MV dec time: 0.28 sec Doppler Measurements & Calculations MV E max real: 58.2 cm/sec Lat Peak E' Real: 11.7 cm/sec Med Peak E' Real: 4.8 cm/sec MV A max real: 92.2 cm/sec E/E' lat: 5.0 E/E' med: 12.1 MV E/A: 0.63 MV V2 max: 113.2 cm/sec MV P1/2t max real: 91.2 cm/sec Ao V2 max: 152.7 cm/sec MV max P.1 mmHg MV P1/2t: 95.9 msec Ao max P.3 mmHg MV V2 mean: 61.6 cm/sec MV dec slope: 278.5 cm/sec2 Ao V2 mean: 91.2 cm/sec MV mean P.8 mmHg MVA(P1/2t): 2.3 cm2 Ao mean P.0 mmHg MV V2 VTI: 29.1 cm Ao V2 VTI: 28.2 cm MVA(VTI): 2.9 cm2 SIGRID(I,D): 3.0 cm2 SIGRID(V,D): 2.7 cm2 LV V1 max: 126.4 cm/sec SV(LVOT): 85.5 ml PA V2 max: 104.0 cm/sec LV V1 max P.4 mmHg LV V1 mean P.1 mmHg LV V1 mean: 81.3 cm/sec LV V1 VTI: 26.2 cm TR max real: 289.5 cm/sec TR max P.5 mmHg Interpretation Summary Normal LV size. Left ventricular systolic function is normal. The estimated ejection fraction is 55 %. Transmitral doppler flow suggestive of impaired relaxation of left ventricle Transmitral diastolic flow velocities suggest mild (stage 1) diastolic dysfunction (reversed pattern). Compared to the previous the LV function has improved. Ordering Physician: Micky Mauro Referring Physician: Micky Mauro Performed By: Nicholas Ashton RCS
== END ==
PROVIDERS: Family Provider Family Medicine; PCP Family Medicine; Visit Provider Internal Medicine Cardiovascular Disease
DX: I27.21 Secondary pulmonary arterial hypertension (principal); T81.4XXA Infection following a procedure, initial encounter; L03.312 Cellulitis of back [any part except buttock and flank]; T81.30XA Disruption of wound, unspecified, initial encounter; Y83.8 Other surgical procedures as the cause of abnormal reaction of the patient, or of later complication, without mention of misadventure at the time of the procedure; I87.2 Venous insufficiency (chronic) (peripheral)
CPT/HCPCS: 11042; 11045; 87070; 87075; 87077; 87186; 87205; 93306

== ENCOUNTER → 2017-11-29 09:46 | Outpatient (CLI) | payer MEDICARE, OTHER, SELFPAY ==
[2015-10-31 10:00] VITALS: BMI 34.9
[2017-11-29 09:54] VITALS: BP 92/52; PULSE 63; RESP 16; TEMP 36.6; O2SAT 100; BMI 26.4
[2017-11-29 10:09] LABS: Hematocrit 28.3 % (40-54); Hemoglobin 8.8 g/dl (13.0-16.5)
[2017-11-29 10:30] LABS: Albumin, Serum 3.1 g/dL (3.2-5.0); BUN 39 mg/dL (7-18); Calcium,Total 8.5 mg/dL (8.5-10.1); Chloride 106 mmol/L (98-107); Creatinine, Serum 1.77 mg/dL (0.70-1.30); EST Glomerular Filtration Rate 40 mL/min (>60); Est Glom Filt Rate - Afr Amer 49 mL/min (>60); Estimated Creatinine Clearance 35.96 ml/min; Ferritin 184 ng/mL (26-388); Glucose 82 mg/dL (74-106); Iron 124 ug/dL (65-175); Iron Binding Capacity,Total 235 ug/dL (250-450); PERCENT IRON SATURATION 52.8 % (15.0-55.0); Phosphorus 4.5 mg/dL (2.5-4.9); Potassium 4.3 mmol/L (3.5-5.1); Sodium Level 140 mmol/L (136-145)
== END ==
PROVIDERS: Family Provider Family Medicine; PCP Family Medicine; Visit Provider Internal Medicine Nephrology
DX: N18.3 Chronic kidney disease, stage 3 (moderate) (principal); D63.1 Anemia in chronic kidney disease
CPT/HCPCS: 36415; 80069; 82728; 83540; 83550; 85014; 85018; 96372; 97608; 99213; J0885; G0463

== ENCOUNTER 2017-12-02 13:30 | Outpatient (RCR) | payer MEDICARE, OTHER, SELFPAY ==
[2015-10-31 10:00] VITALS: BMI 34.9
[2017-11-03 00:31] VITALS: BP 121/78; PULSE 76; RESP 18; TEMP 36.6; BMI 56.5
[2017-11-05 11:39] VITALS: BP 119/59; PULSE 69; RESP 16; TEMP 37; BMI 56.5
[2017-11-08 13:23] VITALS: BP 117/62; PULSE 61; RESP 16; TEMP 35.7; BMI 56.5
--- NOTE | 2017-11-08 19:54 | PCM.WC.PN ---
(1) Nonhealing surgical wound Status: Chronic Current Visit: Yes Qualifiers: Encounter type: subsequent encounter Qualified Code(s): T81.89XD - Other complications of procedures, not elsewhere classified, subsequent encounter Code(s): T81.89XA - Other complications of procedures, not elsewhere classified, initial encounter (2) Open wound of lower back Status: Chronic Current Visit: Yes Code(s): S31.000A - Unspecified open wound of lower back and pelvis without penetration into retroperitoneum, initial encounter (3) Cellulitis Status: Chronic Current Visit: Yes Qualifiers: Site of cellulitis: trunk Site of cellulitis of trunk: back Qualified Code(s): L03.312 - Cellulitis of back [any part except buttock] Code(s): L03.90 - Cellulitis, unspecified Type of Wound Date of Service: 11/08/17 Chief Complaint: Nonhealing surgical wound of lower back History of Wound: Mr. Marshall is a 72-yo who has been seen here at the wound center for a nonhealing surgical wound of his lower back s/p surgical debridement for an abscess s/p lumbar spine surgery. His original surgery on his lower back was approximately 18 months ago and he has had multiple complications since that time. He underwent surgical debridement on 03/04/[address] Davila at [facility] in [place] and was discharged with a wound vac for healing by secondary intention with possible muscle flap closure in the future. He followed up with his surgeon on 04/18/17 for further evaluation and recommendations and they plan to close the wound with a muscle flap but he continues to develop infections. He is also being seen by Infectious Disease. On today's date, October 28, 2017, I was asked to see the patient at the wound center where he had presented as a nurse visit for a change of his wound VAC. The wound VAC is the current modality used to treat a large open surgical wound in the lumbar area. Upon changing the dressing, a small bleeding site was encountered at the lower pole of the open wound, and had not responded to manual pressure which had been applied. I was asked to see the patient for control of a small amount of bleeding at the site, which did not appear to be responding to manual pressure. Initial intervention involved the use of silver nitrate sticks, which did not appear to be effective in controlling the small amount of bleeding from the very localized site in the inferior portion of the wound. Therefore, Surgifoam applied topically, and held in place manually for several minutes. At this juncture, the bleeding appeared to be eliminated, and the site remained dry. The nursing staff was instructed to observe the area for at least several more minutes, after which reapplication of the wound VAC, with the Surgifoam remaining in place, was recommended. Progress of Wound: Cuong returns for a follow up visit for his nonhealing wound of his lower back s/p surgical complications. He has been being treated with a wound vac and has continued to have improvements although very slowly due to his complicated case and co-morbidities. He is tolerating the wound vac but would like to have a more minimal device as the traditional vac is heavy and has been increasing his back pain. Snap vac was not helpful due to drainage being too much but he may benefit from a DAVID system which could accomodate his drainage better without the bulkiness of the canister. His wound culture continues to show MRSA and showed pseudomonas. Linezolid is being continued for 10 more days and he was started on cefdinir. He continues to have pain but less drainage at the base/distal portion of his wound. Tolerating antibiotics well. No fever or chills. - Physical Exam Vital Signs Temp Pulse Resp BP 96.2 F L 61 16 117/62 11/08/17 13:23 11/08/17 13:23 11/08/17 13:23 11/08/17 13:23 General: Alert, Oriented x3, Cooperative, No apparent distress HEENT: Atraumatic, Normocephalic Oral: Moist Mucosa Skin: Ulcer/ Wound Wound Measurements and Assessment - Nurse 1 - General Ulcer Measurement Start: 11/05/17 11:39 Freq: Status: Active Protocol: Activity Type Activity Date Activity User E-Sign Co-Sign Detail Recorded Client Recorded Date Recorded By Document 11/08/17 13:23 [facility] [id number] 11/08/17 13:37 [facility] 11/08/17 13:23 Wound Center Nurse 1 [Ulcer Assessment] #9 Lower Lumbar- Midline -Combined with other wound No -Current Size (cm) - Length 13.9 -Current Size (cm) - Width 4.0 -Current Size (cm) - Depth 0.7 -Total Square Cm 55.60 -Photo Taken No -Epithelialization None Present -Tunneling No -Undermining/Tunneling No -Circular Undermining No -Exudate Amt Medium (34-66%) -Exudate Type Sanguineous -Wound Margin Distinct, Outline Attached -Granulation Amt Large (67-100%) -Granulation Quality [place] -Slough/Fibrin Yes -Necrosis Amt Small (1-33%) -Necrotic Tissue Type Adherent Slough -Texture (Uma-wound Skin Appearance) Scarring -Moisture (Uma-wound Skin Appearance Maceration ) -Color (Uma-wound Skin Appearance) Erythema -Temperature (Uma-wound Skin No Abnormality Appearance) (Pt Warm) -Tenderness on Palpation (Uma-wound Yes Skin Appearance) -Ulcer Cleansing Wound Cleanser -Foul Odor after Cleansing No -Anesthetic Used 5% Lidocaine Gel - Nurse 2 - General Ulcer CM Notes Start: 11/05/17 11:39 Freq: Status: Active Protocol: Activity Type Activity Date Activity User E-Sign Co-Sign Detail Recorded Client Recorded Date Recorded By Document 11/08/17 14:00 [id number] 11/08/17 14:04 11/08/17 14:00 Wound Center Nurse 2 [Procedure/Treatment] -Time 14:00 -Correct Patient Yes -Correct Side, Site, Position Yes -Correct Procedure Yes -Procedure Performed Yes -Type of Procedure Debridement -Clinical Debridement Subcutaneous -Post Debridement Size (cm) - Length 14.0 -Post Debridement Size (cm) - Width 4.3 -Post Debridement Size (cm) - Depth 0.9 -Total Square Cm 60.20 -Wound/Ulcer Outcome Not Healed -Ulcer Cleansing Rinsed/ Irrigated with Saline -Foul Odor after Cleansing No -Bioengineered Tissue No -Topical Lidocaine (%) 5 -Bleeding Controlled with Pressure -Treatment Response Procedure Tolerated Well [See Physician Procedure note for Specifics] Pain Scale: 0-10 Numeric [Pain] -Is Patient Pain Free? Yes Psych/Mental Status: Normal Affect, Appropriate Debridement Note Post-Debridement Measurements/Treatment - Nurse 2 - General Ulcer CM Notes Start: 11/05/17 11:39 Freq: Status: Active Protocol: Activity Type Activity Date Activity User E-Sign Co-Sign Detail Recorded Client Recorded Date Recorded By Document 11/08/17 14:00 [id number] 11/08/17 14:04 11/08/17 14:00 Wound Center Nurse 2 #9 Lower Lumbar- Midline -Time 14:00 -Correct Patient Yes -Correct Side, Site, Position Yes -Correct Procedure Yes -Procedure Performed Yes -Type of Procedure Debridement -Clinical Debridement Subcutaneous -Post Debridement Size (cm) - Length 14.0 -Post Debridement Size (cm) - Width 4.3 -Post Debridement Size (cm) - Depth 0.9 -Total Square Cm 60.20 -Wound/Ulcer Outcome Not Healed -Ulcer Cleansing Rinsed/ Irrigated with Saline -Foul Odor after Cleansing No -Bioengineered Tissue No -Topical Lidocaine (%) 5 -Bleeding Controlled with Pressure -Treatment Response Procedure Tolerated Well Pain Scale: 0-10 Numeric Is Patient Pain Free? Yes Wound debrided: Lower lumbar, midline Laterality: Not Applicable Type of Debridement: Excisional debridement Anesthesia Used: 4% Lidocaine Solution Depth: Down to and including healthy tissue, in the subcutaneous layer Percentage of wound debrided: 100 Instrument Used: 5mm curette Tissue Removed: yellow slough, devitalized tissue Severity: Fat Layer Exposed Amount of bleeding with debridement: Mild Bleeding Controlled with: Compression and gauze Patient tolerated procedure well Assessment/Plan Active Problems (Last Reviewed 08/27/17 @ 10:52 by Marzena Jackson) Nonhealing surgical wound (Chronic) Open wound of lower back (Chronic) Cellulitis (Chronic) Assessment: chronic surgical wound dehiscence lumbar with complex abscess and recent surgical debridement. malnutrition. other multiple comorbidities. edema bilateral lower extremities. Bleeding site from within wound controlled with combination of silver nitrate and Surgifoam. Bleeding appears to be controlled. venous insufficiency. immunocompromised status. Plan: Cuong's wound was debrided today and he tolerated this well. The wound looks healthy. He is tolerating antibiotics as prescribed based on recent wound culture results. DAVID vac placed today and will be changed next Saturday unless needed to change sooner. Continue high protein diet. F/U in 1 week. This note was generated with [employer] software. It may contain incorrect words, spelling, and punctuation that were not noted in checking the note before signing.
[2017-11-11 11:11] VITALS: BP 99/59; PULSE 78; RESP 18; TEMP 36.3; BMI 56.5
[2017-11-15 13:04] VITALS: BP 145/70; PULSE 70; RESP 18; TEMP 36; BMI 56.5
--- NOTE | 2017-11-15 17:57 | PCM.WC.PN ---
(1) Nonhealing surgical wound Status: Chronic Current Visit: Yes Qualifiers: Encounter type: subsequent encounter Qualified Code(s): T81.89XD - Other complications of procedures, not elsewhere classified, subsequent encounter Code(s): T81.89XA - Other complications of procedures, not elsewhere classified, initial encounter (2) Open wound of lower back Status: Chronic Current Visit: Yes Code(s): S31.000A - Unspecified open wound of lower back and pelvis without penetration into retroperitoneum, initial encounter (3) Cellulitis Status: Chronic Current Visit: Yes Qualifiers: Site of cellulitis: trunk Site of cellulitis of trunk: back Qualified Code(s): L03.312 - Cellulitis of back [any part except buttock] Code(s): L03.90 - Cellulitis, unspecified Type of Wound Date of Service: 11/15/17 Chief Complaint: Nonhealing surgical wound of lower back History of Wound: Mr. Marshall is a 72-yo who has been seen here at the wound center for a nonhealing surgical wound of his lower back s/p surgical debridement for an abscess s/p lumbar spine surgery. His original surgery on his lower back was approximately 18 months ago and he has had multiple complications since that time. He underwent surgical debridement on 03/04/[address] Davila at [facility] in [place] and was discharged with a wound vac for healing by secondary intention with possible muscle flap closure in the future. He followed up with his surgeon on 04/18/17 for further evaluation and recommendations and they plan to close the wound with a muscle flap but he continues to develop infections. He is also being seen by Infectious Disease. On today's date, October 28, 2017, I was asked to see the patient at the wound center where he had presented as a nurse visit for a change of his wound VAC. The wound VAC is the current modality used to treat a large open surgical wound in the lumbar area. Upon changing the dressing, a small bleeding site was encountered at the lower pole of the open wound, and had not responded to manual pressure which had been applied. I was asked to see the patient for control of a small amount of bleeding at the site, which did not appear to be responding to manual pressure. Initial intervention involved the use of silver nitrate sticks, which did not appear to be effective in controlling the small amount of bleeding from the very localized site in the inferior portion of the wound. Therefore, Surgifoam applied topically, and held in place manually for several minutes. At this juncture, the bleeding appeared to be eliminated, and the site remained dry. The nursing staff was instructed to observe the area for at least several more minutes, after which reapplication of the wound VAC, with the Surgifoam remaining in place, was recommended. Progress of Wound: Cuong returns for a follow up visit for his nonhealing wound of his lower back s/p surgical complications. He has been being treated with a wound vac and has continued to have improvements although very slowly due to his complicated case and co-morbidities. He is tolerating the wound vac but would like to have a more minimal device as the traditional vac is heavy and has been increasing his back pain. Snap vac was not helpful due to drainage being too much but he may benefit from a DAVID system which did accomodate his drainage better without the bulkiness of the canister but he felt that it was malfunctioning because it was not beeping. He took this off on Saturday and used wet to dry dressings this week. Linezolid and cefdinir completed. He continues to have pain but less drainage at the base/distal portion of his wound. No fever or chills. - Physical Exam Vital Signs Temp Pulse Resp BP 96.8 F L 70 18 145/70 H 11/15/17 13:04 11/15/17 13:04 11/15/17 13:04 11/15/17 13:04 General: Alert, Oriented x3, Cooperative, No apparent distress HEENT: Atraumatic, Normocephalic Oral: Moist Mucosa Skin: Ulcer/ Wound Wound Measurements and Assessment WC - Nurse 1 - General Ulcer Measurement Start: 11/05/17 11:39 Freq: Status: Active Protocol: Activity Type Activity Date Activity User E-Sign Co-Sign Detail Recorded Client Recorded Date Recorded By Document 11/15/17 13:04 DL [id number] 11/15/17 13:15 DL 11/15/17 13:04 Wound Center Nurse 1 [Ulcer Assessment] #9 Lower Lumbar- Midline -Current Size (cm) - Length 14.2 -Current Size (cm) - Width 4.3 -Current Size (cm) - Depth 1.2 -Total Square Cm 61.06 -Photo Taken No -Undermining/Tunneling Starts (O' 10 clock) -Undermining/Tunneling Ends (O'clock) 2 -Maximum Distance (cm) 1 -Exudate Amt Large (67-100%) -Exudate Type Serosanguineous -Wound Margin Thickened & Rolled Under -Granulation Amt Small (1-33%) -Granulation Quality [place] -Necrosis Amt Large (67-100%) -Necrotic Tissue Type Adherent Slough -Structure Exposed N/A -Texture (Uma-wound Skin Appearance) Scarring -Moisture (Uma-wound Skin Appearance No Abnormality ) -Color (Uma-wound Skin Appearance) No Abnormality -Temperature (Uma-wound Skin No Abnormality Appearance) (Pt Warm) -Ulcer Cleansing Wound Cleanser -Foul Odor after Cleansing No -Anesthetic Used 4% Lidocaine Solution - Nurse 2 - General Ulcer CM Notes Start: 11/05/17 11:39 Freq: Status: Active Protocol: Activity Type Activity Date Activity User E-Sign Co-Sign Detail Recorded Client Recorded Date Recorded By Document 11/15/17 14:10 [id number] 11/15/17 14:12 11/15/17 14:10 Wound Center Nurse 2 [Procedure/Treatment] -Time 14:11 -Correct Patient Yes -Correct Side, Site, Position Yes -Correct Procedure Yes -Procedure Performed Yes -Type of Procedure Debridement -Clinical Debridement Subcutaneous -Post Debridement Size (cm) - Length 13.7 -Post Debridement Size (cm) - Width 4.8 -Post Debridement Size (cm) - Depth 0.9 -Total Square Cm 65.76 -Wound/Ulcer Outcome Not Healed -Ulcer Cleansing Rinsed/ Irrigated with Saline -Foul Odor after Cleansing No -Bioengineered Tissue No -Topical Lidocaine (%) 4 -Bleeding Controlled with Pressure -Treatment Response Procedure Tolerated Well [See Physician Procedure note for Specifics] Pain Scale: 0-10 Numeric [Pain] -Is Patient Pain Free? Yes Psych/Mental Status: Normal Affect, Appropriate Debridement Note Post-Debridement Measurements/Treatment - Nurse 2 - General Ulcer CM Notes Start: 11/05/17 11:39 Freq: Status: Active Protocol: Activity Type Activity Date Activity User E-Sign Co-Sign Detail Recorded Client Recorded Date Recorded By Document 11/08/17 14:00 [id number] 11/08/17 14:04 TM Document 11/15/17 14:10 [id number] 11/15/17 14:12 TM 11/08/17 11/15/17 14:00 14:10 Wound Center Nurse 2 #9 Lower Lumbar- Midline -Time 14:00 14:11 -Correct Patient Yes Yes -Correct Side, Site, Position Yes Yes -Correct Procedure Yes Yes -Procedure Performed Yes Yes -Type of Procedure Debridement Debridement -Clinical Debridement Subcutaneous Subcutaneous -Post Debridement Size (cm) - Length 14.0 13.7 -Post Debridement Size (cm) - Width 4.3 4.8 -Post Debridement Size (cm) - Depth 0.9 0.9 -Total Square Cm 60.20 65.76 -Wound/Ulcer Outcome Not Healed Not Healed -Ulcer Cleansing Rinsed/ Rinsed/ Irrigated with Irrigated with Saline Saline -Foul Odor after Cleansing No No -Bioengineered Tissue No No -Topical Lidocaine (%) 5 4 -Bleeding Controlled with Pressure Pressure -Treatment Response Procedure Procedure Tolerated Well Tolerated Well Pain Scale: 0-10 Numeric Is Patient Pain Free? Yes Yes Wound debrided: lower lumbar midline Laterality: Not Applicable Type of Debridement: Excisional debridement Anesthesia Used: 4% Lidocaine Solution Depth: Down to and including healthy tissue, in the subcutaneous layer Percentage of wound debrided: 100 Instrument Used: 7mm curette Tissue Removed: yellow slough, devitalized tissue Severity: Fat Layer Exposed Amount of bleeding with debridement: Mild Bleeding Controlled with: Compression and gauze Patient tolerated procedure well Assessment/Plan Active Problems (Last Reviewed 08/27/17 @ 10:52 by Marzena Jackson) Nonhealing surgical wound (Chronic) Open wound of lower back (Chronic) Cellulitis (Chronic) Assessment: chronic surgical wound dehiscence lumbar with complex abscess and recent surgical debridement. malnutrition. other multiple comorbidities. edema bilateral lower extremities. Bleeding site from within wound controlled with combination of silver nitrate and Surgifoam. Bleeding appears to be controlled. venous insufficiency. immunocompromised status. Plan: Cuong's wound was debrided today and he tolerated this well. The wound looks healthy. Wound culture done today to assess for any further infection. DAVID vac placed today and will be changed Saturday and Saturday unless needed to change sooner. Continue high protein diet. F/U in 1 week. This note was generated with [employer] software. It may contain incorrect words, spelling, and punctuation that were not noted in checking the note before signing.
[2017-11-19 08:53] VITALS: BP 120/65; PULSE 59; RESP 16; TEMP 36.6; BMI 56.5
[2017-11-22 09:02] VITALS: BP 131/60; PULSE 76; RESP 16; TEMP 36.9; BMI 56.5
[2017-11-25 11:20] VITALS: BP 146/66; PULSE 78; RESP 18; TEMP 36.7; BMI 56.5
[2017-11-27 12:12] VITALS: BP 129/69; PULSE 69; RESP 16; TEMP 36.6; BMI 56.5
--- NOTE | 2017-11-27 19:33 | PCM.WC.PN ---
(1) Nonhealing surgical wound Status: Chronic Current Visit: Yes Qualifiers: Encounter type: subsequent encounter Qualified Code(s): T81.89XD - Other complications of procedures, not elsewhere classified, subsequent encounter Code(s): T81.89XA - Other complications of procedures, not elsewhere classified, initial encounter (2) Open wound of lower back Status: Chronic Current Visit: Yes Code(s): S31.000A - Unspecified open wound of lower back and pelvis without penetration into retroperitoneum, initial encounter Type of Wound Date of Service: 11/27/17 Chief Complaint: Nonhealing surgical wound of lower back History of Wound: Mr. Marshall is a 72-yo who has been seen here at the wound center for a nonhealing surgical wound of his lower back s/p surgical debridement for an abscess s/p lumbar spine surgery. His original surgery on his lower back was approximately 18 months ago and he has had multiple complications since that time. He underwent surgical debridement on 03/04/[address] Davila at [facility] in [place] and was discharged with a wound vac for healing by secondary intention with possible muscle flap closure in the future. He followed up with his surgeon on 04/18/17 for further evaluation and recommendations and they plan to close the wound with a muscle flap but he continues to develop infections. He is also being seen by Infectious Disease. On today's date, October 28, 2017, I was asked to see the patient at the wound center where he had presented as a nurse visit for a change of his wound VAC. The wound VAC is the current modality used to treat a large open surgical wound in the lumbar area. Upon changing the dressing, a small bleeding site was encountered at the lower pole of the open wound, and had not responded to manual pressure which had been applied. I was asked to see the patient for control of a small amount of bleeding at the site, which did not appear to be responding to manual pressure. Initial intervention involved the use of silver nitrate sticks, which did not appear to be effective in controlling the small amount of bleeding from the very localized site in the inferior portion of the wound. Therefore, Surgifoam applied topically, and held in place manually for several minutes. At this juncture, the bleeding appeared to be eliminated, and the site remained dry. The nursing staff was instructed to observe the area for at least several more minutes, after which reapplication of the wound VAC, with the Surgifoam remaining in place, was recommended. Progress of Wound: Courtesy visit for Dr. Wick. No new complaints at this time. Scheduled to follow up with surgeon tomorrow. - Physical Exam Vital Signs Temp Pulse Resp BP 97.8 F 69 16 129/69 H 11/27/17 12:12 11/27/17 12:12 11/27/17 12:12 11/27/17 12:12 General: Alert, Oriented x3, Cooperative, No apparent distress HEENT: Atraumatic Oral: Moist Mucosa Neck: Supple Lungs: Normal air movement Extremities: No cyanosis Skin: Ulcer/ Wound Wound Measurements and Assessment WC - Nurse 1 - General Ulcer Measurement Start: 11/05/17 11:39 Freq: Status: Active Protocol: Activity Type Activity Date Activity User E-Sign Co-Sign Detail Recorded Client Recorded Date Recorded By Document 11/25/17 11:20 [id number] 11/25/17 11:26 TM Document 11/27/17 12:12 [facility] [id number] 11/27/17 12:17 [facility] 11/25/17 11/27/17 11:20 12:12 Wound Center Nurse 1 [Ulcer Assessment] #9 Lower Lumbar- Midline -Combined with other wound No No -Current Size (cm) - Length 13.7 14.0 -Current Size (cm) - Width 4.5 4.5 -Current Size (cm) - Depth 0.8 0.8 -Total Square Cm 61.65 63.00 -Photo Taken No No -Epithelialization Small 1-33% None Present -Tunneling No No -Undermining/Tunneling Yes No -Undermining/Tunneling Starts (O' 10 clock) -Undermining/Tunneling Ends (O'clock) 1 -Maximum Distance (cm) 0.3 -Circular Undermining No No -Classification - Thickness Full Thickness with Exposed Support Structure -Exudate Amt Large (67-100%) Large (67-100%) -Exudate Type Serosanguineous Serosanguineous -Wound Margin Distinct, Distinct, Outline Outline Attached Attached -Granulation Amt Small (1-33%) Medium (34-66%) -Granulation Quality [place] -Slough/Fibrin Yes Yes -Necrosis Amt Large (67-100%) Medium (34-66%) -Necrotic Tissue Type Adherent Slough Adherent Slough -Structure Exposed Fascia Muscle Fat Layer Exposed -Texture (Uma-wound Skin Appearance) No Abnormality Scarring Assessed -Moisture (Uma-wound Skin Appearance No Abnormality Assessed ) Assessed -Color (Uma-wound Skin Appearance) No Abnormality Erythema Assessed -Temperature (Uma-wound Skin No Abnormality No Abnormality Appearance) (Pt Warm) (Pt Warm) -Tenderness on Palpation (Uma-wound No No Skin Appearance) -Ulcer Cleansing hibiclens Rinsed/ Irrigated with Saline -Foul Odor after Cleansing No No -Anesthetic Used 4% Lidocaine Solution [Edema Assessment] -Lower Limb Edema Present No WC - Nurse 2 - General Ulcer CM Notes Start: 11/05/17 11:39 Freq: Status: Active Protocol: Activity Type Activity Date Activity User E-Sign Co-Sign Detail Recorded Client Recorded Date Recorded By Document 11/27/17 12:57 [id number] 11/27/17 13:03 11/27/17 12:57 Wound Center Nurse 2 [Procedure/Treatment] -Time 12:59 -Correct Patient Yes -Correct Side, Site, Position Yes -Correct Procedure Yes -Procedure Performed Yes -Type of Procedure Debridement -Clinical Debridement Subcutaneous -Post Debridement Size (cm) - Length 14.0 -Post Debridement Size (cm) - Width 5.0 -Post Debridement Size (cm) - Depth 0.9 -Total Square Cm 70.00 -Wound/Ulcer Outcome Not Healed -Ulcer Cleansing Rinsed/ Irrigated with Saline -Foul Odor after Cleansing No -Bleeding Controlled with Pressure -Treatment Response Procedure Tolerated Well [See Physician Procedure note for Specifics] Pain Scale: 0-10 Numeric [Pain] -Is Patient Pain Free? Yes Musculoskeletal: No Muscle Wasting Neurological: Cranial nerves II-XII grossly intact Psych/Mental Status: Normal Affect Debridement Note Post-Debridement Measurements/Treatment WC - Nurse 2 - General Ulcer CM Notes Start: 11/05/17 11:39 Freq: Status: Active Protocol: Activity Type Activity Date Activity User E-Sign Co-Sign Detail Recorded Client Recorded Date Recorded By Document 11/08/17 14:00 [id number] 11/08/17 14:04 TM Document 11/15/17 14:10 [id number] 11/15/17 14:12 TM Document 11/27/17 12:57 [id number] 11/27/17 13:03 11/08/17 11/15/17 11/27/17 14:00 14:10 12:57 Wound Center Nurse 2 #9 Lower Lumbar- Midline -Time 14:00 14:11 12:59 -Correct Patient Yes Yes Yes -Correct Side, Site, Position Yes Yes Yes -Correct Procedure Yes Yes Yes -Procedure Performed Yes Yes Yes -Type of Procedure Debridement Debridement Debridement -Clinical Debridement Subcutaneous Subcutaneous Subcutaneous -Post Debridement Size (cm) - Length 14.0 13.7 14.0 -Post Debridement Size (cm) - Width 4.3 4.8 5.0 -Post Debridement Size (cm) - Depth 0.9 0.9 0.9 -Total Square Cm 60.20 65.76 70.00 -Wound/Ulcer Outcome Not Healed Not Healed Not Healed -Ulcer Cleansing Rinsed/ Rinsed/ Rinsed/ Irrigated with Irrigated with Irrigated with Saline Saline Saline -Foul Odor after Cleansing No No No -Bioengineered Tissue No No -Topical Lidocaine (%) 5 4 -Bleeding Controlled with Pressure Pressure Pressure -Treatment Response Procedure Procedure Procedure Tolerated Well Tolerated Well Tolerated Well Pain Scale: 0-10 Numeric Is Patient Pain Free? Yes Yes Yes Wound debrided: Lower back Wound Grade/Stage: Stage III Type of Debridement: Excisional debridement Anesthesia Used: 4% Lidocaine Solution Depth: Down to and including healthy tissue, in the subcutaneous layer Percentage of wound debrided: 100 Instrument Used: 7mm curette Tissue Removed: Slough and devitalized tissue Severity: Fat Layer Exposed Amount of bleeding with debridement: Mild Bleeding Controlled with: Pressure Patient tolerated procedure well Assessment/Plan Active Problems (Last Reviewed 11/19/17 @ 16:27 by Micky Mauro MD) Nonhealing surgical wound (Chronic) Open wound of lower back (Chronic) Cellulitis (Chronic) Assessment: chronic surgical wound dehiscence lumbar with complex abscess and recent surgical debridement. malnutrition. other multiple comorbidities. edema bilateral lower extremities. Bleeding site from within wound controlled with combination of silver nitrate and Surgifoam. Bleeding appears to be controlled. venous insufficiency. immunocompromised status. Plan: Signiifcant slough burden noted today. Debridement done as documented above, procedure was well tolerated. Continue wet to dry for now until follow up with Surgeon. He states that he did not do well with the DAVID and has been doing wet to dry. Cultures taken per primary team request. Continue increased protein intake. Follow up in [address] Wick. This note was generated with [employer] dictation software. It may contain incorrect words, spelling, and punctuation that were not noted in checking the note before signing.
--- NOTE | 2017-11-27 19:38 | PN.PCM_ITS ---
(1) Nonhealing surgical wound Status: Chronic Current Visit: Yes Qualifiers: Encounter type: subsequent encounter Qualified Code(s): T81.89XD - Other complications of procedures, not elsewhere classified, subsequent encounter Code(s): T81.89XA - Other complications of procedures, not elsewhere classified , initial encounter (2) Open wound of lower back Status: Chronic Current Visit: Yes Code(s): S31.000A - Unspecified open wound of lower back and pelvis without penetration into retroperitoneum, initial encounter Type of Wound Date of Service: 11/27/17 Chief Complaint: Nonhealing surgical wound of lower back History of Wound: Mr. Marshall is a 72-yo who has been seen here at the wound center for a nonhealing surgical wound of his lower back s/p surgical debridement for an abscess s/p lumbar spine surgery. His original surgery on his lower back was approximately 18 months ago and he has had multiple complications since that time. He underwent surgical debridement on 03/04/[address] Davila at [facility] in [place] and was discharged with a wound vac for healing by secondary intention with possible muscle flap closure in the future. He followed up with his surgeon on 04/18/17 for further evaluation and recommendations and they plan to close the wound with a muscle flap but he continues to develop infections. He is also being seen by Infectious Disease. On today's date, October 28, 2017, I was asked to see the patient at the wound center where he had presented as a nurse visit for a change of his wound VAC. The wound VAC is the current modality used to treat a large open surgical wound in the lumbar area. Upon changing the dressing, a small bleeding site was encountered at the lower pole of the open wound, and had not responded to manual pressure which had been applied. I was asked to see the patient for control of a small amount of bleeding at the site, which did not appear to be responding to manual pressure. Initial intervention involved the use of silver nitrate sticks, which did not appear to be effective in controlling the small amount of bleeding from the very localized site in the inferior portion of the wound. Therefore, Surgifoam applied topically, and held in place manually for several minutes. At this juncture, the bleeding appeared to be eliminated, and the site remained dry. The nursing staff was instructed to observe the area for at least several more minutes, after which reapplication of the wound VAC, with the Surgifoam remaining in place, was recommended. Progress of Wound: Courtesy visit for Dr. Wick. No new complaints at this time. Scheduled to follow up with surgeon tomorrow. - Physical Exam Vital Signs Temp Pulse Resp BP 97.8 F 69 16 129/69 H 11/27/17 12:12 11/27/17 12:12 11/27/17 12:12 11/27/17 12:12 General: Alert, Oriented x3, Cooperative, No apparent distress HEENT: Atraumatic Oral: Moist Mucosa Neck: Supple Lungs: Normal air movement Extremities: No cyanosis Skin: Ulcer/ Wound Wound Measurements and Assessment WC - Nurse 1 - General Ulcer Measurement Start: 11/05/17 11:39 Freq: Status: Active Protocol: Activity Type Activity Date Activity User E-Sign Co-Sign Detail Recorded Client Recorded Date Recorded By Document 11/25/17 11:20 [id number] 11/25/17 11:26 TM Document 11/27/17 12:12 [facility] [id number] 11/27/17 12:17 [facility] 11/25/17 11/27/17 11:20 12:12 Wound Center Nurse 1 [Ulcer Assessment] #9 Lower Lumbar- Midline -Combined with other wound No No -Current Size (cm) - Length 13.7 14.0 -Current Size (cm) - Width 4.5 4.5 -Current Size (cm) - Depth 0.8 0.8 -Total Square Cm 61.65 63.00 -Photo Taken No No -Epithelialization Small 1-33% None Present -Tunneling No No -Undermining/Tunneling Yes No -Undermining/Tunneling Starts (O' 10 clock) -Undermining/Tunneling Ends (O'clock) 1 -Maximum Distance (cm) 0.3 -Circular Undermining No No -Classification - Thickness Full Thickness with Exposed Support Structure -Exudate Amt Large (67-100%) Large (67-100%) -Exudate Type Serosanguineous Serosanguineous -Wound Margin Distinct, Distinct, Outline Outline Attached Attached -Granulation Amt Small (1-33%) Medium (34-66%) -Granulation Quality Red Pale [place] -Slough/Fibrin Yes Yes -Necrosis Amt Large (67-100%) Medium (34-66%) -Necrotic Tissue Type Adherent Slough Adherent Slough -Structure Exposed Fascia Muscle Fat Layer Exposed -Texture (Uma-wound Skin Appearance) No Abnormality Scarring Assessed -Moisture (Uma-wound Skin Appearance No Abnormality Assessed ) Assessed -Color (Uma-wound Skin Appearance) No Abnormality Erythema Assessed -Temperature (Uma-wound Skin No Abnormality No Abnormality Appearance) (Pt Warm) (Pt Warm) -Tenderness on Palpation (Uma-wound No No Skin Appearance) -Ulcer Cleansing hibiclens Rinsed/ Irrigated with Saline -Foul Odor after Cleansing No No -Anesthetic Used 4% Lidocaine Solution [Edema Assessment] -Lower Limb Edema Present No WC - Nurse 2 - General Ulcer CM Notes Start: 11/05/17 11:39 Freq: Status: Active Protocol: Activity Type Activity Date Activity User E-Sign Co-Sign Detail Recorded Client Recorded Date Recorded By Document 11/27/17 12:57 [id number] 11/27/17 13:03 11/27/17 12:57 Wound Center Nurse 2 [Procedure/Treatment] -Time 12:59 -Correct Patient Yes -Correct Side, Site, Position Yes -Correct Procedure Yes -Procedure Performed Yes -Type of Procedure Debridement -Clinical Debridement Subcutaneous -Post Debridement Size (cm) - Length 14.0 -Post Debridement Size (cm) - Width 5.0 -Post Debridement Size (cm) - Depth 0.9 -Total Square Cm 70.00 -Wound/Ulcer Outcome Not Healed -Ulcer Cleansing Rinsed/ Irrigated with Saline -Foul Odor after Cleansing No -Bleeding Controlled with Pressure -Treatment Response Procedure Tolerated Well [See Physician Procedure note for Specifics] Pain Scale: 0-10 Numeric [Pain] -Is Patient Pain Free? Yes Musculoskeletal: No Muscle Wasting Neurological: Cranial nerves II-XII grossly intact Psych/Mental Status: Normal Affect Debridement Note Post-Debridement Measurements/Treatment WC - Nurse 2 - General Ulcer CM Notes Start: 11/05/17 11:39 Freq: Status: Active Protocol: Activity Type Activity Date Activity User E-Sign Co-Sign Detail Recorded Client Recorded Date Recorded By Document 11/08/17 14:00 [id number] 11/08/17 14:04 TM Document 11/15/17 14:10 [id number] 11/15/17 14:12 TM Document 11/27/17 12:57 [id number] 11/27/17 13:03 11/08/17 11/15/17 11/27/17 14:00 14:10 12:57 Wound Center Nurse 2 #9 Lower Lumbar- Midline -Time 14:00 14:11 12:59 -Correct Patient Yes Yes Yes -Correct Side, Site, Position Yes Yes Yes -Correct Procedure Yes Yes Yes -Procedure Performed Yes Yes Yes -Type of Procedure Debridement Debridement Debridement -Clinical Debridement Subcutaneous Subcutaneous Subcutaneous -Post Debridement Size (cm) - Length 14.0 13.7 14.0 -Post Debridement Size (cm) - Width 4.3 4.8 5.0 -Post Debridement Size (cm) - Depth 0.9 0.9 0.9 -Total Square Cm 60.20 65.76 70.00 -Wound/Ulcer Outcome Not Healed Not Healed Not Healed -Ulcer Cleansing Rinsed/ Rinsed/ Rinsed/ Irrigated with Irrigated with Irrigated with Saline Saline Saline -Foul Odor after Cleansing No No No -Bioengineered Tissue No No -Topical Lidocaine (%) 5 4 -Bleeding Controlled with Pressure Pressure Pressure -Treatment Response Procedure Procedure Procedure Tolerated Well Tolerated Well Tolerated Well Pain Scale: 0-10 Numeric Is Patient Pain Free? Yes Yes Yes Wound debrided: Lower back Wound Grade/Stage: Stage III Type of Debridement: Excisional debridement Anesthesia Used: 4% Lidocaine Solution Depth: Down to and including healthy tissue, in the subcutaneous layer Percentage of wound debrided: 100 Instrument Used: 7mm curette Tissue Removed: Slough and devitalized tissue Severity: Fat Layer Exposed Amount of bleeding with debridement: Mild Bleeding Controlled with: Pressure Patient tolerated procedure well Assessment/Plan Active Problems (Last Reviewed 11/19/17 @ 16:27 by Micky Mauro MD) Nonhealing surgical wound (Chronic) Open wound of lower back (Chronic) Cellulitis (Chronic) Assessment: chronic surgical wound dehiscence lumbar with complex abscess and recent surgical debridement. malnutrition. other multiple comorbidities. edema bilateral lower extremities. Bleeding site from within wound controlled with combination of silver nitrate and Surgifoam. Bleeding appears to be controlled. venous insufficiency. immunocompromised status. Plan: Signiifcant slough burden noted today. Debridement done as documented above, procedure was well tolerated. Continue wet to dry for now until follow up with Surgeon. He states that he did not do well with the DAVID and has been doing wet to dry. Cultures taken per primary team request. Continue increased protein intake. Follow up in [address] Wick. This note was generated with [employer] dictation software. It may contain incorrect words, spelling, and punctuation that were not noted in checking the note before signing.
[2017-11-29 09:17] VITALS: BP 111/62; PULSE 72; RESP 18; TEMP 36.5; BMI 56.5
[2017-12-02 14:12] VITALS: BP 118/69; PULSE 71; RESP 18; TEMP 37.6; BMI 56.5
== END 2017-12-03 23:59 ==
LOC: WC 13:30
PROVIDERS: Family Provider Family Medicine; PCP Family Medicine; Visit Provider Family Medicine
DX: T81.4XXA Infection following a procedure, initial encounter (principal); L03.312 Cellulitis of back [any part except buttock and flank]; T81.30XA Disruption of wound, unspecified, initial encounter; Y83.8 Other surgical procedures as the cause of abnormal reaction of the patient, or of later complication, without mention of misadventure at the time of the procedure; I87.2 Venous insufficiency (chronic) (peripheral); B95.62 Methicillin resistant Staphylococcus aureus infection as the cause of diseases classified elsewhere; B96.5 Pseudomonas (aeruginosa) (mallei) (pseudomallei) as the cause of diseases classified elsewhere
CPT/HCPCS: 11042; 11045; 87070; 87075; 87077; 87186; 87205; 97605; 97606; 97608; 99211; 99212; 99213; G0463

== ENCOUNTER → 2017-12-13 09:56 | Outpatient (CLI) | payer MEDICARE, OTHER, SELFPAY ==
[2015-10-31 10:00] VITALS: BMI 34.9
[2017-12-13 10:18] LABS: Absolute Lymphocyte Count 1.77 X10^3/ul (0.83-4.51); Absolute Neutrophil Count 3.1 X10^3/uL (2.0-7.7); Basophil# 0.04 X10^3/uL; Basophil% 0.6 % (0-1); Eosinophil# 0.31 X10^3/uL; Eosinophils% 4.9 % (0-5); Hematocrit 28.1 % (40-54); Hemoglobin 9.1 g/dl (13.0-16.5); Lymphocyte # 1.77 X10^3/ul (4.0); Lymphocyte % 27.8 % (19-41); Mean Corp Hgb Conc 32.4 g/gl (32-36); Mean Corpuscular Hgb 33.6 pg (27.0-32.0); Mean Corpuscular Volume 103.7 fL (80-94); Mean Platelet Vol. 9.2 fl (6.2-12.0); Monocyte% 17.3 % (0-10); Neutrophil # 3.14 X10^3/uL (2.7-7.7); Neutrophil % 49.2 % (47-70); Platelet Count 281 K/mm3 (150-450); RBC Distribution Width CV 15.9 % (11.6-14.6); RBC Distribution Width SD 58.9 fl (35.1-43.9); Red Blood Count 2.71 M/mm3 (4.6-6.2); White Blood Count 6.4 K/mm3 (4.4-11.0)
[2017-12-13 10:19] LABS: POSITIVE COUNT NO; POSITIVE DIFFERENTIAL NO; POSITIVE MORPHOLOGY NO
[2017-12-13 10:45] VITALS: BP 116/62; PULSE 55; RESP 16; TEMP 36.3; O2SAT 93; BMI 26.2
== END ==
PROVIDERS: Family Provider Family Medicine; PCP Family Medicine; Visit Provider Internal Medicine Nephrology
DX: N18.3 Chronic kidney disease, stage 3 (moderate) (principal); D63.1 Anemia in chronic kidney disease; T81.4XXA Infection following a procedure, initial encounter; T81.30XA Disruption of wound, unspecified, initial encounter; L03.312 Cellulitis of back [any part except buttock and flank]; Y83.8 Other surgical procedures as the cause of abnormal reaction of the patient, or of later complication, without mention of misadventure at the time of the procedure; I87.2 Venous insufficiency (chronic) (peripheral); B99.8 Other infectious disease
CPT/HCPCS: 11042; 11045; 36415; 85025; 87070; 87075; 87077; 87186; 87205; 96372; 97608; J0885

== ENCOUNTER → 2017-12-27 09:55 | Outpatient (CLI) | payer MEDICARE, OTHER, SELFPAY ==
[2015-10-31 10:00] VITALS: BMI 34.9
[2017-12-27 10:18] VITALS: BP 115/55; PULSE 69; RESP 16; TEMP 36.1; O2SAT 100; BMI 26.2
[2017-12-27 10:39] LABS: Hematocrit 29.4 % (40-54); Hemoglobin 9.7 g/dl (13.0-16.5)
[2017-12-27 10:48] LABS: BUN 44 mg/dL (7-18); Calcium,Total 8.1 mg/dL (8.5-10.1); Chloride 104 mmol/L (98-107); Creatinine, Serum 1.83 mg/dL (0.70-1.30); EST Glomerular Filtration Rate 39 mL/min (>60); Est Glom Filt Rate - Afr Amer 47 mL/min (>60); Estimated Creatinine Clearance 34.78 ml/min; Glucose 125 mg/dL (74-106); Phosphorus 2.6 mg/dL (2.5-4.9); Potassium 3.6 mmol/L (3.5-5.1); Sodium Level 139 mmol/L (136-145)
== END ==
PROVIDERS: Family Provider Family Medicine; PCP Family Medicine; Visit Provider Internal Medicine Nephrology
DX: N18.3 Chronic kidney disease, stage 3 (moderate) (principal); D63.1 Anemia in chronic kidney disease; T81.4XXA Infection following a procedure, initial encounter; L03.312 Cellulitis of back [any part except buttock and flank]; T81.30XA Disruption of wound, unspecified, initial encounter; Y83.8 Other surgical procedures as the cause of abnormal reaction of the patient, or of later complication, without mention of misadventure at the time of the procedure; I87.2 Venous insufficiency (chronic) (peripheral); B95.62 Methicillin resistant Staphylococcus aureus infection as the cause of diseases classified elsewhere
CPT/HCPCS: 11042; 11045; 36415; 80069; 85014; 85018; 87070; 87075; 87077; 87186; 87205; 96372; 97608; J0885

== ENCOUNTER → 2018-01-03 10:01 | Outpatient (CLI) | payer MEDICARE, OTHER, SELFPAY ==
[2015-10-31 10:00] VITALS: BMI 34.9
[2018-01-03 10:19] VITALS: BP 119/61; PULSE 65; RESP 16; TEMP 36.4; O2SAT 96; BMI 26.1
[2018-01-03 10:20] LABS: Absolute Lymphocyte Count 1.46 X10^3/ul (0.83-4.51); Absolute Neutrophil Count 3.5 X10^3/uL (2.0-7.7); Basophil# 0.05 X10^3/uL; Basophil% 0.8 % (0-1); Eosinophil# 0.51 X10^3/uL; Eosinophils% 7.8 % (0-5); Hematocrit 29.9 % (40-54); Hemoglobin 9.7 g/dl (13.0-16.5); Lymphocyte # 1.46 X10^3/ul (4.0); Lymphocyte % 22.2 % (19-41); Mean Corp Hgb Conc 32.4 g/gl (32-36); Mean Corpuscular Hgb 33.9 pg (27.0-32.0); Mean Corpuscular Volume 104.5 fL (80-94); Mean Platelet Vol. 9.7 fl (6.2-12.0); Monocyte# 1.03 X10^3/uL; Monocyte% 15.7 % (0-10); Neutrophil # 3.51 X10^3/uL (2.7-7.7); Neutrophil % 53.3 % (47-70); POSITIVE COUNT NO; POSITIVE DIFFERENTIAL NO; POSITIVE MORPHOLOGY NO; Platelet Count 260 K/mm3 (150-450); RBC Distribution Width CV 16.3 % (11.6-14.6); RBC Distribution Width SD 59.7 fl (35.1-43.9); Red Blood Count 2.86 M/mm3 (4.6-6.2); White Blood Count 6.6 K/mm3 (4.4-11.0)
== END ==
PROVIDERS: Family Provider Family Medicine; PCP Family Medicine; Visit Provider Internal Medicine Nephrology
DX: N18.3 Chronic kidney disease, stage 3 (moderate) (principal); D63.1 Anemia in chronic kidney disease; T81.4XXA Infection following a procedure, initial encounter; L03.312 Cellulitis of back [any part except buttock and flank]; T81.30XA Disruption of wound, unspecified, initial encounter; Y83.8 Other surgical procedures as the cause of abnormal reaction of the patient, or of later complication, without mention of misadventure at the time of the procedure; I87.2 Venous insufficiency (chronic) (peripheral); N18.9 Chronic kidney disease, unspecified; B95.62 Methicillin resistant Staphylococcus aureus infection as the cause of diseases classified elsewhere
CPT/HCPCS: 11042; 11045; 36415; 85025; 96372; 97608; J0885

== ENCOUNTER 2018-01-03 13:15 | Outpatient (RCR) | payer MEDICARE, OTHER, SELFPAY ==
[2015-10-31 10:00] VITALS: BMI 34.9
[2017-12-04 00:34] VITALS: BP 118/69; PULSE 71; RESP 18; TEMP 37.6; BMI 56.5
[2017-12-04 12:48] VITALS: BP 144/82; PULSE 65; RESP 16; TEMP 36.6; BMI 56.5
--- NOTE | 2017-12-04 13:33 | WC ---
NURSE VISIT: DAVID removed at home early this morning by patient saying device was full. Adaptic and saline-moistened gauze had been applied in the interim. DAVID disposable NWPT re-applied today. Wound bed covered with heavy white slough; vigorously cleansed with saline gauze. Adaptic placed in wound bed; coveredand packed with fluffed, saline-moistened gauze. Track Pad placed distally due to increased drainage, and leaks in this area. Seal checked following application and intact. Pump running normally. Scheduled to see Dr. Wick this Saturday
[2017-12-06 13:03] VITALS: BP 134/70; PULSE 61; RESP 16; TEMP 37.4; BMI 56.5
--- NOTE | 2017-12-06 18:17 | PCM.WC.PN ---
(1) Nonhealing surgical wound Status: Chronic Current Visit: Yes Qualifiers: Encounter type: subsequent encounter Code(s): T81.89XA - Other complications of procedures, not elsewhere classified, initial encounter (2) Open wound of lower back Status: Chronic Current Visit: Yes Code(s): S31.000A - Unspecified open wound of lower back and pelvis without penetration into retroperitoneum, initial encounter (3) Cellulitis Status: Chronic Current Visit: Yes Qualifiers: Site of cellulitis: trunk Site of cellulitis of trunk: back Qualified Code(s): L03.312 - Cellulitis of back [any part except buttock] Code(s): L03.90 - Cellulitis, unspecified (4) Chronic kidney disease Status: Chronic Current Visit: Yes Qualifiers: Chronic kidney disease stage: unspecified stage Qualified Code(s): N18.9 - Chronic kidney disease, unspecified Code(s): N18.9 - Chronic kidney disease, unspecified Type of Wound Date of Service: 12/06/17 Chief Complaint: Nonhealing surgical wound of lower back History of Wound: Mr. Marshall is a 72-yo who has been seen here at the wound center for a nonhealing surgical wound of his lower back s/p surgical debridement for an abscess s/p lumbar spine surgery. His original surgery on his lower back was approximately 18 months ago and he has had multiple complications since that time. He underwent surgical debridement on 03/04/[address] Davila at [facility] in [place] and was discharged with a wound vac for healing by secondary intention with possible muscle flap closure in the future. He followed up with his surgeon on 04/18/17 for further evaluation and recommendations and they plan to close the wound with a muscle flap but he continues to develop infections. He is also being seen by Infectious Disease. On today's date, October 28, 2017, I was asked to see the patient at the wound center where he had presented as a nurse visit for a change of his wound VAC. The wound VAC is the current modality used to treat a large open surgical wound in the lumbar area. Upon changing the dressing, a small bleeding site was encountered at the lower pole of the open wound, and had not responded to manual pressure which had been applied. I was asked to see the patient for control of a small amount of bleeding at the site, which did not appear to be responding to manual pressure. Initial intervention involved the use of silver nitrate sticks, which did not appear to be effective in controlling the small amount of bleeding from the very localized site in the inferior portion of the wound. Therefore, Surgifoam applied topically, and held in place manually for several minutes. At this juncture, the bleeding appeared to be eliminated, and the site remained dry. The nursing staff was instructed to observe the area for at least several more minutes, after which reapplication of the wound VAC, with the Surgifoam remaining in place, was recommended. Progress of Wound: Cuong is here today for follow up of his surgical wound of his lumbar spine. He saw Dr. Yarbrough last week and he felt that the wound is still infected and did not want to proceed with surgery. He performed a wound culture which was positive for Pseudomonas. A wound culture was also done here the day prior which also showed very rare growth of Pseudomonas. He was started on Ciprofloxacin. He has not had any change in pain or amount of drainage. He has been having some issues with his DAVID wound vac and has had to use a wet to dry dressing twice this week. denies fever or chills. - Physical Exam Vital Signs Temp Pulse Resp BP 99.3 F H 61 16 134/70 H 12/06/17 13:03 12/06/17 13:03 12/06/17 13:03 12/06/17 13:03 General: Alert, Oriented x3, Cooperative, No apparent distress HEENT: Atraumatic, Normocephalic Oral: Moist Mucosa Neck: Supple Skin: Ulcer/ Wound Wound Measurements and Assessment WC - Nurse 1 - General Ulcer Measurement Start: 12/04/17 12:48 Freq: Status: Active Protocol: Activity Type Activity Date Activity User E-Sign Co-Sign Detail Recorded Client Recorded Date Recorded By Document 12/04/17 12:48 JS [id number] 12/04/17 13:09 JS Document 12/06/17 13:03 CS [id number] 12/06/17 13:05 CS 12/04/17 12/06/17 12:48 13:03 Wound Center Nurse 1 [Ulcer Assessment] #9 Lower Lumbar- Midline -Combined with other wound No -Current Size (cm) - Length 14.2 14.1 -Current Size (cm) - Width 4.7 4.8 -Current Size (cm) - Depth 1.0 0.4 -Total Square Cm 66.74 67.68 -Date of Last Picture (Recall this 12/06/17 field) -Photo Taken No Yes -Epithelialization None Present Small 1-33% -Tunneling No No -Undermining/Tunneling No No -Circular Undermining No No -Classification - Thickness Full Thickness with Exposed Support Structure -Change in Wound Grade/Stage No Query Text:If change please identify the Stage/Grade in the comment (ie. S2 G3) -Exudate Amt Large (67-100%) Medium (34-66%) -Exudate Type Serosanguineous Serosanguineous -Wound Margin Distinct, Distinct, Outline Outline Attached Attached -Granulation Amt Medium (34-66%) Medium (34-66%) -Granulation Quality Pale Pale [place] -Slough/Fibrin Yes Yes -Necrosis Amt None Present (0 None Present (0 %) %) -Necrotic Tissue Type Adherent Slough Adherent Slough -Structure Exposed Fascia Muscle Fat Layer Exposed -Texture (Uma-wound Skin Appearance) No Abnormality -Moisture (Uma-wound Skin Appearance No Abnormality ) -Color (Uma-wound Skin Appearance) No Abnormality -Temperature (Uma-wound Skin No Abnormality No Abnormality Appearance) (Pt Warm) (Pt Warm) -Tenderness on Palpation (Uma-wound Yes Yes Skin Appearance) -Ulcer Cleansing Rinsed/ Wound Cleanser Irrigated with Saline -Foul Odor after Cleansing No No -Anesthetic Used 5% Lidocaine Gel [Edema Assessment] -Lower Limb Edema Present NA WC - Nurse 2 - General Ulcer CM Notes Start: 12/04/17 12:48 Freq: Status: Active Protocol: Activity Type Activity Date Activity User E-Sign Co-Sign Detail Recorded Client Recorded Date Recorded By Document 12/06/17 13:51 [id number] 12/06/17 14:18 12/06/17 13:51 Wound Center Nurse 2 [Procedure/Treatment] #9 Lower Lumbar- Midline -Time 13:51 -Correct Patient Yes -Correct Side, Site, Position Yes -Correct Procedure Yes -Procedure Performed Yes -Type of Procedure Debridement -Clinical Debridement Subcutaneous -Post Debridement Size (cm) - Length 13.9 -Post Debridement Size (cm) - Width 4.5 -Post Debridement Size (cm) - Depth 0.7 -Total Square Cm 62.55 -Wound/Ulcer Outcome Not Healed -Ulcer Cleansing Rinsed/ Irrigated with Saline -Foul Odor after Cleansing No -Bioengineered Tissue No -Topical Lidocaine (%) 5 -Bleeding Controlled with Pressure -Treatment Response Procedure Tolerated Well [See Physician Procedure note for Specifics] Pain Scale: 0-10 Numeric [Pain] -Is Patient Pain Free? Yes Psych/Mental Status: Normal Affect, Appropriate Debridement Note Post-Debridement Measurements/Treatment WC - Nurse 2 - General Ulcer CM Notes Start: 12/04/17 12:48 Freq: Status: Active Protocol: Activity Type Activity Date Activity User E-Sign Co-Sign Detail Recorded Client Recorded Date Recorded By Document 12/06/17 13:51 [id number] 12/06/17 14:18 12/06/17 13:51 Wound Center Nurse 2 #9 Lower Lumbar- Midline -Time 13:51 -Correct Patient Yes -Correct Side, Site, Position Yes -Correct Procedure Yes -Procedure Performed Yes -Type of Procedure Debridement -Clinical Debridement Subcutaneous -Post Debridement Size (cm) - Length 13.9 -Post Debridement Size (cm) - Width 4.5 -Post Debridement Size (cm) - Depth 0.7 -Total Square Cm 62.55 -Wound/Ulcer Outcome Not Healed -Ulcer Cleansing Rinsed/ Irrigated with Saline -Foul Odor after Cleansing No -Bioengineered Tissue No -Topical Lidocaine (%) 5 -Bleeding Controlled with Pressure -Treatment Response Procedure Tolerated Well Pain Scale: 0-10 Numeric Is Patient Pain Free? Yes Wound debrided: lower lumbar midline Laterality: Not Applicable Type of Debridement: Excisional debridement Anesthesia Used: 4% Lidocaine Solution Depth: Down to and including healthy tissue, in the subcutaneous layer Percentage of wound debrided: 100 Instrument Used: 5mm curette, #15 blade, Forceps Tissue Removed: yellow slough, devitalized tissue Severity: Necrosis of Muscle Amount of bleeding with debridement: Mild Bleeding Controlled with: Compression and gauze, Silver Nitrate, Gel Foam Patient tolerated procedure well Assessment/Plan Active Problems (Last Reviewed 11/19/17 @ 16:27 by Micky Mauro MD) Nonhealing surgical wound (Chronic) Open wound of lower back (Chronic) Cellulitis (Chronic) Chronic kidney disease (Chronic) Assessment: chronic surgical wound dehiscence lumbar with complex abscess and recent surgical debridement. malnutrition. other multiple comorbidities. edema bilateral lower extremities. Bleeding site from within wound controlled with combination of silver nitrate and Surgifoam. Bleeding appears to be controlled. venous insufficiency. immunocompromised status. Plan: Cuong's wound was evaluated and debrided today. There is mild improvement. Significant slough debrided today. Debridement done as documented above, procedure was well tolerated. DAVID placed again. If he continues to have problem with DAVID, may need to return to traditional wound vac therapy. Continue Cipro to treat positive wound culture. Discussed possibility of second opinion regarding surgical closure. They are considering looking into [facility]. Continue increased protein intake. F/U in 1 week for wound care and Saturday and Saturday for vac changes.
[2017-12-09 09:17] VITALS: BP 109/50; PULSE 74; RESP 16; TEMP 36.2; BMI 56.5
[2017-12-11 13:33] VITALS: BP 136/81; PULSE 71; RESP 18; TEMP 36.9; BMI 56.5
[2017-12-13 14:10] VITALS: BP 122/59; PULSE 75; RESP 16; TEMP 36.7; BMI 56.5
--- NOTE | 2017-12-13 17:48 | PCM.WC.PN ---
(1) Nonhealing surgical wound Status: Chronic Current Visit: Yes Qualifiers: Encounter type: subsequent encounter Code(s): T81.89XA - Other complications of procedures, not elsewhere classified, initial encounter (2) Open wound of lower back Status: Chronic Current Visit: Yes Code(s): S31.000A - Unspecified open wound of lower back and pelvis without penetration into retroperitoneum, initial encounter (3) Cellulitis Status: Chronic Current Visit: Yes Qualifiers: Site of cellulitis: trunk Site of cellulitis of trunk: back Qualified Code(s): L03.312 - Cellulitis of back [any part except buttock] Code(s): L03.90 - Cellulitis, unspecified (4) Chronic kidney disease Status: Chronic Current Visit: Yes Qualifiers: Chronic kidney disease stage: unspecified stage Qualified Code(s): N18.9 - Chronic kidney disease, unspecified Code(s): N18.9 - Chronic kidney disease, unspecified Type of Wound Date of Service: 12/13/17 Chief Complaint: Nonhealing surgical wound of lower back History of Wound: Mr. Marshall is a 72-yo who has been seen here at the wound center for a nonhealing surgical wound of his lower back s/p surgical debridement for an abscess s/p lumbar spine surgery. His original surgery on his lower back was approximately 18 months ago and he has had multiple complications since that time. He underwent surgical debridement on 03/04/[address] Davila at [facility] in [place] and was discharged with a wound vac for healing by secondary intention with possible muscle flap closure in the future. He followed up with his surgeon on 04/18/17 for further evaluation and recommendations and they plan to close the wound with a muscle flap but he continues to develop infections. He is also being seen by Infectious Disease. On today's date, October 28, 2017, I was asked to see the patient at the wound center where he had presented as a nurse visit for a change of his wound VAC. The wound VAC is the current modality used to treat a large open surgical wound in the lumbar area. Upon changing the dressing, a small bleeding site was encountered at the lower pole of the open wound, and had not responded to manual pressure which had been applied. I was asked to see the patient for control of a small amount of bleeding at the site, which did not appear to be responding to manual pressure. Initial intervention involved the use of silver nitrate sticks, which did not appear to be effective in controlling the small amount of bleeding from the very localized site in the inferior portion of the wound. Therefore, Surgifoam applied topically, and held in place manually for several minutes. At this juncture, the bleeding appeared to be eliminated, and the site remained dry. The nursing staff was instructed to observe the area for at least several more minutes, after which reapplication of the wound VAC, with the Surgifoam remaining in place, was recommended. Progress of Wound: Cuong is here today for follow up of his surgical wound of his lumbar spine. He saw Dr. Yarbrough yesterday and he felt that the wound is still infected and did not want to proceed with surgery. He is still on Ciprofloxacin for psuedomonas positive wound culture. He has not had any change in pain or amount of drainage. He has been having some issues with his DAVID wound vac and has had to use a wet to dry dressing once this week. denies fever or chills. He plans to get a second opinion regarding surgical closure by Dr. Marcum at [place] on 12/26/17. - Physical Exam Vital Signs Temp Pulse Resp BP 98.0 F 75 16 122/59 H 12/13/17 14:10 12/13/17 14:10 12/13/17 14:10 12/13/17 14:10 General: Alert, Oriented x3, Cooperative, No apparent distress HEENT: Atraumatic, Normocephalic Oral: Moist Mucosa Skin: Ulcer/ Wound Wound Measurements and Assessment - Nurse 1 - General Ulcer Measurement Start: 12/04/17 12:48 Freq: Status: Active Protocol: Activity Type Activity Date Activity User E-Sign Co-Sign Detail Recorded Client Recorded Date Recorded By Document 12/11/17 13:33 [id number] 12/11/17 13:36 Document 12/13/17 14:10 [id number] 12/13/17 14:11 CS 12/11/17 12/13/17 13:33 14:10 Wound Center Nurse 1 [Ulcer Assessment] #9 Lower Lumbar- Midline -Combined with other wound No No -Current Size (cm) - Length 13.5 12.7 -Current Size (cm) - Width 4.5 4.8 -Current Size (cm) - Depth 0.5 0.6 -Total Square Cm 60.75 60.96 -Photo Taken No No -Epithelialization None Present None Present -Tunneling No No -Undermining/Tunneling No No -Circular Undermining No No -Exudate Amt Large (67-100%) Medium (34-66%) -Exudate Type Serosanguineous Serosanguineous -Wound Margin Thickened & Distinct, Rolled Under Outline Attached -Granulation Amt Small (1-33%) Medium (34-66%) -Granulation Quality [place] Pale [place] -Slough/Fibrin Yes Yes -Necrosis Amt Large (67-100%) None Present (0 %) -Necrotic Tissue Type Adherent Slough Adherent Slough -Structure Exposed N/A -Texture (Uma-wound Skin Appearance) Assessed Assessed Scarring -Moisture (Uma-wound Skin Appearance Assessed No Abnormality ) Dry/Scaly Assessed -Color (Uma-wound Skin Appearance) Assessed No Abnormality Assessed -Temperature (Uma-wound Skin No Abnormality No Abnormality Appearance) (Pt Warm) (Pt Warm) -Tenderness on Palpation (Uma-wound No Yes Skin Appearance) -Ulcer Cleansing Wound Cleanser Wound Cleanser -Foul Odor after Cleansing No No -Anesthetic Used 4% Lidocaine Solution [Edema Assessment] -Lower Limb Edema Present NA NA WC - Nurse 2 - General Ulcer CM Notes Start: 12/04/17 12:48 Freq: Status: Active Protocol: Activity Type Activity Date Activity User E-Sign Co-Sign Detail Recorded Client Recorded Date Recorded By Document 12/13/17 14:37 [id number] 12/13/17 14:48 12/13/17 14:37 Wound Center Nurse 2 [Procedure/Treatment] #9 Lower Lumbar- Midline -Time 14:37 -Correct Patient Yes -Correct Side, Site, Position Yes -Correct Procedure Yes -Procedure Performed Yes -Type of Procedure Debridement -Clinical Debridement Subcutaneous -Post Debridement Size (cm) - Length 13.0 -Post Debridement Size (cm) - Width 4.6 -Post Debridement Size (cm) - Depth 0.8 -Total Square Cm 59.80 -Wound/Ulcer Outcome Not Healed -Ulcer Cleansing Rinsed/ Irrigated with Saline -Foul Odor after Cleansing No -Bioengineered Tissue No -Topical Lidocaine (%) 4 -Bleeding Controlled with Pressure -Treatment Response Procedure Tolerated Well [See Physician Procedure note for Specifics] Pain Scale: 0-10 Numeric [Pain] -Is Patient Pain Free? Yes Psych/Mental Status: Normal Affect, Appropriate Debridement Note Post-Debridement Measurements/Treatment WC - Nurse 2 - General Ulcer CM Notes Start: 12/04/17 12:48 Freq: Status: Active Protocol: Activity Type Activity Date Activity User E-Sign Co-Sign Detail Recorded Client Recorded Date Recorded By Document 12/06/17 13:51 TM [id number] 12/06/17 14:18 TM Document 12/13/17 14:37 TM [id number] 12/13/17 14:48 TM 12/06/17 12/13/17 13:51 14:37 Wound Center Nurse 2 #9 Lower Lumbar- Midline -Time 13:51 14:37 -Correct Patient Yes Yes -Correct Side, Site, Position Yes Yes -Correct Procedure Yes Yes -Procedure Performed Yes Yes -Type of Procedure Debridement Debridement -Clinical Debridement Subcutaneous Subcutaneous -Post Debridement Size (cm) - Length 13.9 13.0 -Post Debridement Size (cm) - Width 4.5 4.6 -Post Debridement Size (cm) - Depth 0.7 0.8 -Total Square Cm 62.55 59.80 -Wound/Ulcer Outcome Not Healed Not Healed -Ulcer Cleansing Rinsed/ Rinsed/ Irrigated with Irrigated with Saline Saline -Foul Odor after Cleansing No No -Bioengineered Tissue No No -Topical Lidocaine (%) 5 4 -Bleeding Controlled with Pressure Pressure -Treatment Response Procedure Procedure Tolerated Well Tolerated Well Pain Scale: 0-10 Numeric Is Patient Pain Free? Yes Yes Wound debrided: lower lumbar midline Laterality: Not Applicable Type of Debridement: Excisional debridement Anesthesia Used: 4% Lidocaine Solution Depth: Down to and including healthy tissue, in the subcutaneous layer Percentage of wound debrided: 100 Instrument Used: 7mm curette Tissue Removed: yellow slough, devitalized tissue Severity: Fat Layer Exposed Amount of bleeding with debridement: Mild Bleeding Controlled with: Compression and gauze, Gel Foam Patient tolerated procedure well Assessment/Plan Active Problems (Last Reviewed 11/19/17 @ 16:27 by Micky Mauro MD) Nonhealing surgical wound (Chronic) Open wound of lower back (Chronic) Cellulitis (Chronic) Chronic kidney disease (Chronic) Assessment: chronic surgical wound dehiscence lumbar with complex abscess and recent surgical debridement. malnutrition. other multiple comorbidities. edema bilateral lower extremities. Bleeding site from within wound controlled with combination of silver nitrate and Surgifoam. Bleeding appears to be controlled. venous insufficiency. immunocompromised status. Plan: Cuong's wound was evaluated and debrided today. There is mild improvement. Less slough present today. Debridement done as documented above, procedure was well tolerated. DAVID placed again. If he continues to have problem with DAVID, may need to return to traditional wound vac therapy. Continue Cipro to treat positive wound culture. Wound culture taken again today as his surgeon stated that it still appeared infected when he was seen yesterday. Discussed possibility of second opinion regarding surgical closure. They are going to be seen by Dr. Marcum at [place]. Continue increased protein intake. F/U in 1 week for wound care and Saturday and Saturday for vac changes.
--- NOTE | 2017-12-13 17:52 | PN.PCM_ITS ---
(1) Nonhealing surgical wound Status: Chronic Current Visit: Yes Qualifiers: Encounter type: subsequent encounter Code(s): T81.89XA - Other complications of procedures, not elsewhere classified , initial encounter (2) Open wound of lower back Status: Chronic Current Visit: Yes Code(s): S31.000A - Unspecified open wound of lower back and pelvis without penetration into retroperitoneum, initial encounter (3) Cellulitis Status: Chronic Current Visit: Yes Qualifiers: Site of cellulitis: trunk Site of cellulitis of trunk: back Qualified Code(s): L03.312 - Cellulitis of back [any part except buttock] Code(s): L03.90 - Cellulitis, unspecified (4) Chronic kidney disease Status: Chronic Current Visit: Yes Qualifiers: Chronic kidney disease stage: unspecified stage Qualified Code(s): N18.9 - Chronic kidney disease, unspecified Code(s): N18.9 - Chronic kidney disease, unspecified Type of Wound Date of Service: 12/13/17 Chief Complaint: Nonhealing surgical wound of lower back History of Wound: Mr. Marshall is a 72-yo who has been seen here at the wound center for a nonhealing surgical wound of his lower back s/p surgical debridement for an abscess s/p lumbar spine surgery. His original surgery on his lower back was approximately 18 months ago and he has had multiple complications since that time. He underwent surgical debridement on 03/04/[address] Davila at [facility] in [place] and was discharged with a wound vac for healing by secondary intention with possible muscle flap closure in the future. He followed up with his surgeon on 04/18/17 for further evaluation and recommendations and they plan to close the wound with a muscle flap but he continues to develop infections. He is also being seen by Infectious Disease. On today's date, October 28, 2017, I was asked to see the patient at the wound center where he had presented as a nurse visit for a change of his wound VAC. The wound VAC is the current modality used to treat a large open surgical wound in the lumbar area. Upon changing the dressing, a small bleeding site was encountered at the lower pole of the open wound, and had not responded to manual pressure which had been applied. I was asked to see the patient for control of a small amount of bleeding at the site, which did not appear to be responding to manual pressure. Initial intervention involved the use of silver nitrate sticks, which did not appear to be effective in controlling the small amount of bleeding from the very localized site in the inferior portion of the wound. Therefore, Surgifoam applied topically, and held in place manually for several minutes. At this juncture, the bleeding appeared to be eliminated, and the site remained dry. The nursing staff was instructed to observe the area for at least several more minutes, after which reapplication of the wound VAC, with the Surgifoam remaining in place, was recommended. Progress of Wound: Cuong is here today for follow up of his surgical wound of his lumbar spine. He saw Dr. Yarbrough yesterday and he felt that the wound is still infected and did not want to proceed with surgery. He is still on Ciprofloxacin for psuedomonas positive wound culture. He has not had any change in pain or amount of drainage. He has been having some issues with his DAVID wound vac and has had to use a wet to dry dressing once this week. denies fever or chills. He plans to get a second opinion regarding surgical closure by Dr. Marcum at [place] on 12/26/17. - Physical Exam Vital Signs Temp Pulse Resp BP 98.0 F 75 16 122/59 H 12/13/17 14:10 12/13/17 14:10 12/13/17 14:10 12/13/17 14:10 General: Alert, Oriented x3, Cooperative, No apparent distress HEENT: Atraumatic, Normocephalic Oral: Moist Mucosa Skin: Ulcer/ Wound Wound Measurements and Assessment - Nurse 1 - General Ulcer Measurement Start: 12/04/17 12:48 Freq: Status: Active Protocol: Activity Type Activity Date Activity User E-Sign Co-Sign Detail Recorded Client Recorded Date Recorded By Document 12/11/17 13:33 [id number] 12/11/17 13:36 Document 12/13/17 14:10 [id number] 12/13/17 14:11 CS 12/11/17 12/13/17 13:33 14:10 Wound Center Nurse 1 [Ulcer Assessment] #9 Lower Lumbar- Midline -Combined with other wound No No -Current Size (cm) - Length 13.5 12.7 -Current Size (cm) - Width 4.5 4.8 -Current Size (cm) - Depth 0.5 0.6 -Total Square Cm 60.75 60.96 -Photo Taken No No -Epithelialization None Present None Present -Tunneling No No -Undermining/Tunneling No No -Circular Undermining No No -Exudate Amt Large (67-100%) Medium (34-66%) -Exudate Type Serosanguineous Serosanguineous -Wound Margin Thickened & Distinct, Rolled Under Outline Attached -Granulation Amt Small (1-33%) Medium (34-66%) -Granulation Quality [place] Pale [place] -Slough/Fibrin Yes Yes -Necrosis Amt Large (67-100%) None Present (0 %) -Necrotic Tissue Type Adherent Slough Adherent Slough -Structure Exposed N/A -Texture (Uma-wound Skin Appearance) Assessed Assessed Scarring -Moisture (Uma-wound Skin Appearance Assessed No Abnormality ) Dry/Scaly Assessed -Color (Uma-wound Skin Appearance) Assessed No Abnormality Assessed -Temperature (Uma-wound Skin No Abnormality No Abnormality Appearance) (Pt Warm) (Pt Warm) -Tenderness on Palpation (Uma-wound No Yes Skin Appearance) -Ulcer Cleansing Wound Cleanser Wound Cleanser -Foul Odor after Cleansing No No -Anesthetic Used 4% Lidocaine Solution [Edema Assessment] -Lower Limb Edema Present NA NA WC - Nurse 2 - General Ulcer CM Notes Start: 12/04/17 12:48 Freq: Status: Active Protocol: Activity Type Activity Date Activity User E-Sign Co-Sign Detail Recorded Client Recorded Date Recorded By Document 12/13/17 14:37 [id number] 12/13/17 14:48 12/13/17 14:37 Wound Center Nurse 2 [Procedure/Treatment] #9 Lower Lumbar- Midline -Time 14:37 -Correct Patient Yes -Correct Side, Site, Position Yes -Correct Procedure Yes -Procedure Performed Yes -Type of Procedure Debridement -Clinical Debridement Subcutaneous -Post Debridement Size (cm) - Length 13.0 -Post Debridement Size (cm) - Width 4.6 -Post Debridement Size (cm) - Depth 0.8 -Total Square Cm 59.80 -Wound/Ulcer Outcome Not Healed -Ulcer Cleansing Rinsed/ Irrigated with Saline -Foul Odor after Cleansing No -Bioengineered Tissue No -Topical Lidocaine (%) 4 -Bleeding Controlled with Pressure -Treatment Response Procedure Tolerated Well [See Physician Procedure note for Specifics] Pain Scale: 0-10 Numeric [Pain] -Is Patient Pain Free? Yes Psych/Mental Status: Normal Affect, Appropriate Debridement Note Post-Debridement Measurements/Treatment WC - Nurse 2 - General Ulcer CM Notes Start: 12/04/17 12:48 Freq: Status: Active Protocol: Activity Type Activity Date Activity User E-Sign Co-Sign Detail Recorded Client Recorded Date Recorded By Document 12/06/17 13:51 TM [id number] 12/06/17 14:18 TM Document 12/13/17 14:37 TM [id number] 12/13/17 14:48 TM 12/06/17 12/13/17 13:51 14:37 Wound Center Nurse 2 #9 Lower Lumbar- Midline -Time 13:51 14:37 -Correct Patient Yes Yes -Correct Side, Site, Position Yes Yes -Correct Procedure Yes Yes -Procedure Performed Yes Yes -Type of Procedure Debridement Debridement -Clinical Debridement Subcutaneous Subcutaneous -Post Debridement Size (cm) - Length 13.9 13.0 -Post Debridement Size (cm) - Width 4.5 4.6 -Post Debridement Size (cm) - Depth 0.7 0.8 -Total Square Cm 62.55 59.80 -Wound/Ulcer Outcome Not Healed Not Healed -Ulcer Cleansing Rinsed/ Rinsed/ Irrigated with Irrigated with Saline Saline -Foul Odor after Cleansing No No -Bioengineered Tissue No No -Topical Lidocaine (%) 5 4 -Bleeding Controlled with Pressure Pressure -Treatment Response Procedure Procedure Tolerated Well Tolerated Well Pain Scale: 0-10 Numeric Is Patient Pain Free? Yes Yes Wound debrided: lower lumbar midline Laterality: Not Applicable Type of Debridement: Excisional debridement Anesthesia Used: 4% Lidocaine Solution Depth: Down to and including healthy tissue, in the subcutaneous layer Percentage of wound debrided: 100 Instrument Used: 7mm curette Tissue Removed: yellow slough, devitalized tissue Severity: Fat Layer Exposed Amount of bleeding with debridement: Mild Bleeding Controlled with: Compression and gauze, Gel Foam Patient tolerated procedure well Assessment/Plan Active Problems (Last Reviewed 11/19/17 @ 16:27 by Micky Mauro MD) Nonhealing surgical wound (Chronic) Open wound of lower back (Chronic) Cellulitis (Chronic) Chronic kidney disease (Chronic) Assessment: chronic surgical wound dehiscence lumbar with complex abscess and recent surgical debridement. malnutrition. other multiple comorbidities. edema bilateral lower extremities. Bleeding site from within wound controlled with combination of silver nitrate and Surgifoam. Bleeding appears to be controlled. venous insufficiency. immunocompromised status. Plan: Cuong's wound was evaluated and debrided today. There is mild improvement. Less slough present today. Debridement done as documented above, procedure was well tolerated. DAVID placed again. If he continues to have problem with DAVID, may need to return to traditional wound vac therapy. Continue Cipro to treat positive wound culture. Wound culture taken again today as his surgeon stated that it still appeared infected when he was seen yesterday. Discussed possibility of second opinion regarding surgical closure. They are going to be seen by Dr. Marcum at [place]. Continue increased protein intake. F/U in 1 week for wound care and Saturday and Saturday for vac changes.
[2017-12-16 13:29] VITALS: BP 135/77; PULSE 70; RESP 16; TEMP 37.1; BMI 56.5
[2017-12-18 11:33] VITALS: BP 115/68; PULSE 65; RESP 18; TEMP 36.4; BMI 56.5
[2017-12-20 15:09] VITALS: BP 123/55; PULSE 66; RESP 16; TEMP 36.1; BMI 56.5
--- NOTE | 2017-12-20 17:47 | PCM.WC.PN ---
(1) Nonhealing surgical wound Status: Chronic Current Visit: Yes Qualifiers: Encounter type: subsequent encounter Code(s): T81.89XA - Other complications of procedures, not elsewhere classified, initial encounter (2) Open wound of lower back Status: Chronic Current Visit: Yes Code(s): S31.000A - Unspecified open wound of lower back and pelvis without penetration into retroperitoneum, initial encounter (3) Cellulitis Status: Chronic Current Visit: Yes Qualifiers: Site of cellulitis: trunk Site of cellulitis of trunk: back Qualified Code(s): L03.312 - Cellulitis of back [any part except buttock] Code(s): L03.90 - Cellulitis, unspecified (4) Chronic kidney disease Status: Chronic Current Visit: Yes Qualifiers: Chronic kidney disease stage: unspecified stage Qualified Code(s): N18.9 - Chronic kidney disease, unspecified Code(s): N18.9 - Chronic kidney disease, unspecified Type of Wound Date of Service: 12/20/17 Chief Complaint: Nonhealing surgical wound of lower back History of Wound: Mr. Marshall is a 72-yo who has been seen here at the wound center for a nonhealing surgical wound of his lower back s/p surgical debridement for an abscess s/p lumbar spine surgery. His original surgery on his lower back was approximately 18 months ago and he has had multiple complications since that time. He underwent surgical debridement on 03/04/[address] Davila at [facility] in [place] and was discharged with a wound vac for healing by secondary intention with possible muscle flap closure in the future. He followed up with his surgeon on 04/18/17 for further evaluation and recommendations and they plan to close the wound with a muscle flap but he continues to develop infections. He is also being seen by Infectious Disease. On today's date, October 28, 2017, I was asked to see the patient at the wound center where he had presented as a nurse visit for a change of his wound VAC. The wound VAC is the current modality used to treat a large open surgical wound in the lumbar area. Upon changing the dressing, a small bleeding site was encountered at the lower pole of the open wound, and had not responded to manual pressure which had been applied. I was asked to see the patient for control of a small amount of bleeding at the site, which did not appear to be responding to manual pressure. Initial intervention involved the use of silver nitrate sticks, which did not appear to be effective in controlling the small amount of bleeding from the very localized site in the inferior portion of the wound. Therefore, Surgifoam applied topically, and held in place manually for several minutes. At this juncture, the bleeding appeared to be eliminated, and the site remained dry. The nursing staff was instructed to observe the area for at least several more minutes, after which reapplication of the wound VAC, with the Surgifoam remaining in place, was recommended. Progress of Wound: Cuong is here today for follow up of his surgical wound of his lumbar spine. He has not had any change in pain or amount of drainage. He has a positive wound culture with MRSA and was started on clindamycin on Saturday. He has had diarrhea and is taking a probiotic. He has been doing well with his DAVID wound vac. Denies fever or chills. He plans to get a second opinion regarding surgical closure by Dr. Marcum at [place] on 12/26/17. - Physical Exam Vital Signs Temp Pulse Resp BP 96.9 F L 66 16 123/55 H 12/20/17 15:09 12/20/17 15:09 12/20/17 15:09 12/20/17 15:09 General: Alert, Oriented x3, Cooperative, No apparent distress HEENT: Atraumatic, Normocephalic Oral: Moist Mucosa Skin: Ulcer/ Wound Wound Measurements and Assessment WC - Nurse 1 - General Ulcer Measurement Start: 12/04/17 12:48 Freq: Status: Active Protocol: Activity Type Activity Date Activity User E-Sign Co-Sign Detail Recorded Client Recorded Date Recorded By Document 12/18/17 11:33 RB [id number] 12/18/17 11:35 RB Document 12/20/17 15:09 CS [id number] 12/20/17 15:11 CS 12/18/17 12/20/17 11:33 15:09 Wound Center Nurse 1 [Ulcer Assessment] #9 Lower Lumbar- Midline -Combined with other wound No -Current Size (cm) - Length 12.6 -Current Size (cm) - Width 3.9 -Current Size (cm) - Depth 0.3 -Total Square Cm 49.14 -Photo Taken No -Epithelialization None Present -Tunneling No -Undermining/Tunneling No -Exudate Amt Large (67-100%) -Exudate Type Serosanguineous -Wound Margin Thickened & Distinct, Rolled Under Outline Attached -Granulation Amt Large (67-100%) Medium (34-66%) -Granulation Quality [place] Pale Red [place] -Slough/Fibrin Yes Yes -Necrosis Amt Small (1-33%) None Present (0 %) -Necrotic Tissue Type Adherent Slough Adherent Slough -Texture (Uma-wound Skin Appearance) No Abnormality Assessed -Moisture (Uma-wound Skin Appearance No Abnormality ) Assessed -Color (Uma-wound Skin Appearance) No Abnormality Assessed -Temperature (Uma-wound Skin No Abnormality Appearance) (Pt Warm) -Tenderness on Palpation (Uma-wound Yes Skin Appearance) -Ulcer Cleansing Wound Cleanser -Foul Odor after Cleansing No -Anesthetic Used 4% Lidocaine Solution [Edema Assessment] -Lower Limb Edema Present NA WC - Nurse 2 - General Ulcer CM Notes Start: 12/04/17 12:48 Freq: Status: Active Protocol: Activity Type Activity Date Activity User E-Sign Co-Sign Detail Recorded Client Recorded Date Recorded By Document 12/20/17 15:46 [id number] 12/20/17 16:01 12/20/17 15:46 Wound Center Nurse 2 [Procedure/Treatment] #9 Lower Lumbar- Midline -Time 15:46 -Correct Patient Yes -Correct Side, Site, Position Yes -Correct Procedure Yes -Procedure Performed Yes -Type of Procedure Debridement -Clinical Debridement Subcutaneous -Post Debridement Size (cm) - Length 13.8 -Post Debridement Size (cm) - Width 3.8 -Post Debridement Size (cm) - Depth 0.5 -Total Square Cm 52.44 -Wound/Ulcer Outcome Not Healed -Ulcer Cleansing Rinsed/ Irrigated with Saline -Foul Odor after Cleansing No -Bioengineered Tissue No -Topical Lidocaine (%) 4 -Bleeding Controlled with Pressure -Treatment Response Procedure Tolerated Well [See Physician Procedure note for Specifics] Pain Scale: 0-10 Numeric [Pain] -Is Patient Pain Free? Yes Psych/Mental Status: Normal Affect, Appropriate Debridement Note Post-Debridement Measurements/Treatment WC - Nurse 2 - General Ulcer CM Notes Start: 12/04/17 12:48 Freq: Status: Active Protocol: Activity Type Activity Date Activity User E-Sign Co-Sign Detail Recorded Client Recorded Date Recorded By Document 12/06/17 13:51 [id number] 12/06/17 14:18 TM Document 12/13/17 14:37 TM [id number] 12/13/17 14:48 TM Document 12/20/17 15:46 TM [id number] 12/20/17 16:01 12/06/17 12/13/17 12/20/17 13:51 14:37 15:46 Wound Center Nurse 2 #9 Lower Lumbar- Midline -Time 13:51 14:37 15:46 -Correct Patient Yes Yes Yes -Correct Side, Site, Position Yes Yes Yes -Correct Procedure Yes Yes Yes -Procedure Performed Yes Yes Yes -Type of Procedure Debridement Debridement Debridement -Clinical Debridement Subcutaneous Subcutaneous Subcutaneous -Post Debridement Size (cm) - Length 13.9 13.0 13.8 -Post Debridement Size (cm) - Width 4.5 4.6 3.8 -Post Debridement Size (cm) - Depth 0.7 0.8 0.5 -Total Square Cm 62.55 59.80 52.44 -Wound/Ulcer Outcome Not Healed Not Healed Not Healed -Ulcer Cleansing Rinsed/ Rinsed/ Rinsed/ Irrigated with Irrigated with Irrigated with Saline Saline Saline -Foul Odor after Cleansing No No No -Bioengineered Tissue No No No -Topical Lidocaine (%) 5 4 4 -Bleeding Controlled with Pressure Pressure Pressure -Treatment Response Procedure Procedure Procedure Tolerated Well Tolerated Well Tolerated Well Pain Scale: 0-10 Numeric Is Patient Pain Free? Yes Yes Yes Wound debrided: lower lumbar midline Laterality: Not Applicable Type of Debridement: Excisional debridement Anesthesia Used: 4% Lidocaine Solution Depth: Down to and including healthy tissue, in the subcutaneous layer, to muscle Percentage of wound debrided: 100 Instrument Used: 5mm curette Tissue Removed: yellow slough, devitalized tissue Severity: Fat Layer Exposed Amount of bleeding with debridement: Mild Bleeding Controlled with: Compression and gauze Patient tolerated procedure well Assessment/Plan Active Problems (Last Reviewed 11/19/17 @ 16:27 by Micky Mauro MD) Nonhealing surgical wound (Chronic) Open wound of lower back (Chronic) Cellulitis (Chronic) Chronic kidney disease (Chronic) Assessment: chronic surgical wound dehiscence lumbar with complex abscess and recent surgical debridement. malnutrition. other multiple comorbidities. edema bilateral lower extremities. Bleeding site from within wound controlled with combination of silver nitrate and Surgifoam. Bleeding appears to be controlled. venous insufficiency. immunocompromised status. Plan: Cuong's wound was evaluated and debrided today. There is mild improvement. Less slough present today. Debridement done as documented above, procedure was well tolerated. DAVID placed again. If he continues to have problem with DAVID, may need to return to traditional wound vac therapy. Continue Clindamycin to treat positive wound culture. Discussed possibility of second opinion regarding surgical closure. They are going to be seen by Dr. Marcum at [facility]. Continue increased protein intake. F/U in 1 week for wound care and Saturday and Saturday for vac changes.
[2017-12-23 11:23] VITALS: BP 119/74; PULSE 74; RESP 16; TEMP 36.9; BMI 56.5
[2017-12-25 10:25] VITALS: BP 141/72; PULSE 77; RESP 18; TEMP 37.1; BMI 56.5
[2017-12-27 13:16] VITALS: BP 131/72; PULSE 79; RESP 20; TEMP 36.6; BMI 56.5
--- NOTE | 2017-12-27 19:50 | PCM.WC.PN ---
(1) Nonhealing surgical wound Status: Chronic Current Visit: Yes Qualifiers: Encounter type: subsequent encounter Code(s): T81.89XA - Other complications of procedures, not elsewhere classified, initial encounter (2) Open wound of lower back Status: Chronic Current Visit: Yes Code(s): S31.000A - Unspecified open wound of lower back and pelvis without penetration into retroperitoneum, initial encounter (3) Cellulitis Status: Chronic Current Visit: Yes Qualifiers: Site of cellulitis: trunk Site of cellulitis of trunk: back Qualified Code(s): L03.312 - Cellulitis of back [any part except buttock] Code(s): L03.90 - Cellulitis, unspecified (4) Chronic kidney disease Status: Chronic Current Visit: Yes Qualifiers: Chronic kidney disease stage: unspecified stage Qualified Code(s): N18.9 - Chronic kidney disease, unspecified Code(s): N18.9 - Chronic kidney disease, unspecified Type of Wound Date of Service: 12/27/17 Chief Complaint: Nonhealing surgical wound of lower back History of Wound: Mr. Marshall is a 72-yo who has been seen here at the wound center for a nonhealing surgical wound of his lower back s/p surgical debridement for an abscess s/p lumbar spine surgery. His original surgery on his lower back was approximately 18 months ago and he has had multiple complications since that time. He underwent surgical debridement on 03/04/[address] Davila at [facility] in [place] and was discharged with a wound vac for healing by secondary intention with possible muscle flap closure in the future. He followed up with his surgeon on 04/18/17 for further evaluation and recommendations and they plan to close the wound with a muscle flap but he continues to develop infections. He is also being seen by Infectious Disease. On today's date, October 28, 2017, I was asked to see the patient at the wound center where he had presented as a nurse visit for a change of his wound VAC. The wound VAC is the current modality used to treat a large open surgical wound in the lumbar area. Upon changing the dressing, a small bleeding site was encountered at the lower pole of the open wound, and had not responded to manual pressure which had been applied. I was asked to see the patient for control of a small amount of bleeding at the site, which did not appear to be responding to manual pressure. Initial intervention involved the use of silver nitrate sticks, which did not appear to be effective in controlling the small amount of bleeding from the very localized site in the inferior portion of the wound. Therefore, Surgifoam applied topically, and held in place manually for several minutes. At this juncture, the bleeding appeared to be eliminated, and the site remained dry. The nursing staff was instructed to observe the area for at least several more minutes, after which reapplication of the wound VAC, with the Surgifoam remaining in place, was recommended. Progress of Wound: Cuong is here today for follow up of his surgical wound of his lumbar spine. He has not had any change in pain or amount of drainage. He completed his antibiotics. He has been doing well with his DAVID wound vac. Denies fever or chills. He saw Dr. Marcum for second opinion regarding surgical closure at [facility] center and he stated that he does not do closure that Cuong would need. He did mention doing a culture to quantify the amount of bacteria present in the wound which may be helpful to determine if surgical wound closure would be recommended. - Physical Exam Vital Signs Temp Pulse Resp BP 98 F 79 20 H 131/72 H 12/27/17 13:16 12/27/17 13:16 12/27/17 13:16 12/27/17 13:16 General: Alert, Oriented x3, Cooperative, No apparent distress HEENT: Atraumatic, Normocephalic Oral: Moist Mucosa Skin: Ulcer/ Wound Wound Measurements and Assessment WC - Nurse 1 - General Ulcer Measurement Start: 12/04/17 12:48 Freq: Status: Active Protocol: Activity Type Activity Date Activity User E-Sign Co-Sign Detail Recorded Client Recorded Date Recorded By Document 12/27/17 13:16 DL [id number] 12/27/17 13:26 DL 12/27/17 13:16 Wound Center Nurse 1 [Ulcer Assessment] #9 Lower Lumbar- Midline -Current Size (cm) - Length 14.3 -Current Size (cm) - Width 4.8 -Current Size (cm) - Depth 1.3 -Total Square Cm 68.64 -Photo Taken No -Exudate Amt Large (67-100%) -Exudate Type Yellow/Green -Wound Margin Thickened & Rolled Under -Granulation Amt Small (1-33%) -Granulation Quality [place] -Necrosis Amt Large (67-100%) -Necrotic Tissue Type Adherent Slough -Structure Exposed N/A -Texture (Uma-wound Skin Appearance) Scarring -Moisture (Uma-wound Skin Appearance No Abnormality ) -Color (Uma-wound Skin Appearance) No Abnormality -Temperature (Uma-wound Skin No Abnormality Appearance) (Pt Warm) -Tenderness on Palpation (Uma-wound No Skin Appearance) -Ulcer Cleansing Rinsed/ Irrigated with Saline -Foul Odor after Cleansing No -Anesthetic Used 4% Lidocaine Solution WC - Nurse 2 - General Ulcer CM Notes Start: 12/04/17 12:48 Freq: Status: Active Protocol: Activity Type Activity Date Activity User E-Sign Co-Sign Detail Recorded Client Recorded Date Recorded By Document 12/27/17 13:41 TM [id number] 12/27/17 13:53 12/27/17 13:41 Wound Center Nurse 2 [Procedure/Treatment] -Time 13:41 -Correct Patient Yes -Correct Side, Site, Position Yes -Correct Procedure Yes -Procedure Performed Yes -Type of Procedure Debridement -Clinical Debridement Subcutaneous -Post Debridement Size (cm) - Length 13.8 -Post Debridement Size (cm) - Width 4.4 -Post Debridement Size (cm) - Depth 0.4 -Total Square Cm 60.72 -Wound/Ulcer Outcome Not Healed -Ulcer Cleansing Rinsed/ Irrigated with Saline -Foul Odor after Cleansing No -Bioengineered Tissue No -Topical Lidocaine (%) 4 -Bleeding Controlled with Pressure -Treatment Response Procedure Tolerated Well [See Physician Procedure note for Specifics] Pain Scale: 0-10 Numeric [Pain] -Is Patient Pain Free? Yes Psych/Mental Status: Normal Affect, Appropriate Debridement Note Post-Debridement Measurements/Treatment WC - Nurse 2 - General Ulcer CM Notes Start: 12/04/17 12:48 Freq: Status: Active Protocol: Activity Type Activity Date Activity User E-Sign Co-Sign Detail Recorded Client Recorded Date Recorded By Document 12/06/17 13:51 TM [id number] 12/06/17 14:18 TM Document 12/13/17 14:37 TM [id number] 12/13/17 14:48 TM Document 12/20/17 15:46 TM [id number] 12/20/17 16:01 TM Document 12/27/17 13:41 [id number] 12/27/17 13:53 TM 12/06/17 12/13/17 12/20/17 13:51 14:37 15:46 Wound Center Nurse 2 #9 Lower Lumbar- Midline -Time 13:51 14:37 15:46 -Correct Patient Yes Yes Yes -Correct Side, Site, Position Yes Yes Yes -Correct Procedure Yes Yes Yes -Procedure Performed Yes Yes Yes -Type of Procedure Debridement Debridement Debridement -Clinical Debridement Subcutaneous Subcutaneous Subcutaneous -Post Debridement Size (cm) - Length 13.9 13.0 13.8 -Post Debridement Size (cm) - Width 4.5 4.6 3.8 -Post Debridement Size (cm) - Depth 0.7 0.8 0.5 -Total Square Cm 62.55 59.80 52.44 -Wound/Ulcer Outcome Not Healed Not Healed Not Healed -Ulcer Cleansing Rinsed/ Rinsed/ Rinsed/ Irrigated with Irrigated with Irrigated with Saline Saline Saline -Foul Odor after Cleansing No No No -Bioengineered Tissue No No No -Topical Lidocaine (%) 5 4 4 -Bleeding Controlled with Pressure Pressure Pressure -Treatment Response Procedure Procedure Procedure Tolerated Well Tolerated Well Tolerated Well Pain Scale: 0-10 Numeric Is Patient Pain Free? Yes Yes Yes 12/27/17 13:41 Wound Center Nurse 2 #9 Lower Lumbar- Midline -Time 13:41 -Correct Patient Yes -Correct Side, Site, Position Yes -Correct Procedure Yes -Procedure Performed Yes -Type of Procedure Debridement -Clinical Debridement Subcutaneous -Post Debridement Size (cm) - Length 13.8 -Post Debridement Size (cm) - Width 4.4 -Post Debridement Size (cm) - Depth 0.4 -Total Square Cm 60.72 -Wound/Ulcer Outcome Not Healed -Ulcer Cleansing Rinsed/ Irrigated with Saline -Foul Odor after Cleansing No -Bioengineered Tissue No -Topical Lidocaine (%) 4 -Bleeding Controlled with Pressure -Treatment Response Procedure Tolerated Well Pain Scale: 0-10 Numeric Is Patient Pain Free? Yes Wound debrided: lower lumbar midline Laterality: Not Applicable Type of Debridement: Excisional debridement Anesthesia Used: 4% Lidocaine Solution Depth: Down to and including healthy tissue, in the subcutaneous layer, to muscle Percentage of wound debrided: 100 Instrument Used: 5mm curette Tissue Removed: devitalized tissue, slough Severity: Fat Layer Exposed Amount of bleeding with debridement: Mild Bleeding Controlled with: Compression and gauze Patient tolerated procedure well Assessment/Plan Active Problems (Last Reviewed 11/19/17 @ 16:27 by Micky Mauro MD) Nonhealing surgical wound (Chronic) Open wound of lower back (Chronic) Cellulitis (Chronic) Chronic kidney disease (Chronic) Assessment: chronic surgical wound dehiscence lumbar with complex abscess and recent surgical debridement. malnutrition. other multiple comorbidities. edema bilateral lower extremities. Bleeding site from within wound controlled with combination of silver nitrate and Surgifoam. Bleeding appears to be controlled. venous insufficiency. immunocompromised status. Plan: Cuong's wound was evaluated and debrided today. There continues to be mild improvement. Less slough present today. Debridement done as documented above, procedure was well tolerated. Wound culture taken today. DAVID placed again. Due to his heavy bioburden and frequently positive wound cultures Cuong would benefit from treatment with Puraply AM to help with healing of his wound. Approval for use of this will be requested through his insurance. Continue increased protein intake. F/U in 1 week for wound care and Saturday and Saturday for vac changes.
[2017-12-30 13:27] VITALS: BP 140/58; PULSE 83; RESP 18; TEMP 36.3; BMI 56.5
[2018-01-01 11:54] VITALS: BP 129/74; PULSE 85; RESP 16; TEMP 36; BMI 56.5
[2018-01-03 13:10] VITALS: BP 130/74; PULSE 76; RESP 16; TEMP 36.7; BMI 56.5
--- NOTE | 2018-01-03 19:33 | PCM.WC.PN ---
(1) Nonhealing surgical wound Status: Chronic Current Visit: Yes Qualifiers: Encounter type: subsequent encounter Code(s): T81.89XA - Other complications of procedures, not elsewhere classified, initial encounter (2) Open wound of lower back Status: Chronic Current Visit: Yes Code(s): S31.000A - Unspecified open wound of lower back and pelvis without penetration into retroperitoneum, initial encounter (3) Cellulitis Status: Chronic Current Visit: Yes Qualifiers: Site of cellulitis: trunk Site of cellulitis of trunk: back Qualified Code(s): L03.312 - Cellulitis of back [any part except buttock] Code(s): L03.90 - Cellulitis, unspecified (4) Chronic kidney disease Status: Chronic Current Visit: Yes Qualifiers: Chronic kidney disease stage: unspecified stage Qualified Code(s): N18.9 - Chronic kidney disease, unspecified Code(s): N18.9 - Chronic kidney disease, unspecified Type of Wound Date of Service: 01/03/18 Chief Complaint: Nonhealing surgical wound of lower back History of Wound: Mr. Marshall is a 72-yo who has been seen here at the wound center for a nonhealing surgical wound of his lower back s/p surgical debridement for an abscess s/p lumbar spine surgery. His original surgery on his lower back was approximately 18 months ago and he has had multiple complications since that time. He underwent surgical debridement on 03/04/[address] Davila at [facility] in [place] and was discharged with a wound vac for healing by secondary intention with possible muscle flap closure in the future. He followed up with his surgeon on 04/18/17 for further evaluation and recommendations and they plan to close the wound with a muscle flap but he continues to develop infections. He is also being seen by Infectious Disease. On today's date, October 28, 2017, I was asked to see the patient at the wound center where he had presented as a nurse visit for a change of his wound VAC. The wound VAC is the current modality used to treat a large open surgical wound in the lumbar area. Upon changing the dressing, a small bleeding site was encountered at the lower pole of the open wound, and had not responded to manual pressure which had been applied. I was asked to see the patient for control of a small amount of bleeding at the site, which did not appear to be responding to manual pressure. Initial intervention involved the use of silver nitrate sticks, which did not appear to be effective in controlling the small amount of bleeding from the very localized site in the inferior portion of the wound. Therefore, Surgifoam applied topically, and held in place manually for several minutes. At this juncture, the bleeding appeared to be eliminated, and the site remained dry. The nursing staff was instructed to observe the area for at least several more minutes, after which reapplication of the wound VAC, with the Surgifoam remaining in place, was recommended. Progress of Wound: Cuong is here today for follow up of his surgical wound of his lumbar spine. He has not had any change in pain or amount of drainage. 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 He is on doxycycline and tolerating this well. He has been doing well with his DAVID wound vac. Denies fever or chills. He saw Dr. Marcum for second opinion regarding surgical closure at [facility] and he stated that he does not do closure that Cuong would need. He did mention doing a culture to quantify the amount of bacteria present in the wound which may be helpful to determine if surgical wound closure would be recommended. - Physical Exam Vital Signs Temp Pulse Resp BP 98.0 F 76 16 130/74 H 01/03/18 13:10 01/03/18 13:10 01/03/18 13:10 01/03/18 13:10 General: Alert, Oriented x3, Cooperative, No apparent distress HEENT: Atraumatic, Normocephalic Oral: Moist Mucosa Skin: Ulcer/ Wound Wound Measurements and Assessment WC - Nurse 1 - General Ulcer Measurement Start: 12/04/17 12:48 Freq: Status: Active Protocol: Activity Type Activity Date Activity User E-Sign Co-Sign Detail Recorded Client Recorded Date Recorded By Document 01/03/18 13:10 MW [id number] 01/03/18 13:27 MW 01/03/18 13:10 Wound Center Nurse 1 [Ulcer Assessment] #9 Lower Lumbar- Midline -Combined with other wound No -Current Size (cm) - Length 13.3 -Current Size (cm) - Width 4.5 -Current Size (cm) - Depth 0.4 -Total Square Cm 59.85 -Photo Taken No -Epithelialization None Present -Tunneling No -Undermining/Tunneling No -Circular Undermining No -Exudate Amt Medium (34-66%) -Exudate Type Serosanguineous -Wound Margin Distinct, Outline Attached -Granulation Amt Medium (34-66%) -Granulation Quality [place] -Slough/Fibrin Yes -Necrosis Amt Medium (34-66%) -Necrotic Tissue Type Adherent Slough -Structure Exposed N/A -Texture (Uma-wound Skin Appearance) Assessed Scarring -Moisture (Uma-wound Skin Appearance No Abnormality ) Assessed -Color (Uma-wound Skin Appearance) No Abnormality Assessed -Temperature (Uma-wound Skin No Abnormality Appearance) (Pt Warm) -Tenderness on Palpation (Uma-wound No Skin Appearance) -Ulcer Cleansing Wound Cleanser -Foul Odor after Cleansing No -Anesthetic Used 4% Lidocaine Solution [Edema Assessment] -Lower Limb Edema Present No WC - Nurse 2 - General Ulcer CM Notes Start: 12/04/17 12:48 Freq: Status: Active Protocol: Activity Type Activity Date Activity User E-Sign Co-Sign Detail Recorded Client Recorded Date Recorded By Document 01/03/18 14:00 [id number] 01/03/18 14:21 01/03/18 14:00 Wound Center Nurse 2 [Procedure/Treatment] #9 Lower Lumbar- Midline -Time 14:00 -Correct Patient Yes -Correct Side, Site, Position Yes -Correct Procedure Yes -Procedure Performed Yes -Type of Procedure Debridement -Clinical Debridement Subcutaneous -Post Debridement Size (cm) - Length 13.8 -Post Debridement Size (cm) - Width 4.5 -Post Debridement Size (cm) - Depth 0.5 -Total Square Cm 62.10 -Wound/Ulcer Outcome Not Healed -Ulcer Cleansing Rinsed/ Irrigated with Saline -Foul Odor after Cleansing No -Bioengineered Tissue No -Topical Lidocaine (%) 5 -Bleeding Controlled with Pressure -Treatment Response Procedure Tolerated Well [See Physician Procedure note for Specifics] Pain Scale: 0-10 Numeric [Pain] -Is Patient Pain Free? Yes Psych/Mental Status: Normal Affect, Appropriate Debridement Note Post-Debridement Measurements/Treatment WC - Nurse 2 - General Ulcer CM Notes Start: 12/04/17 12:48 Freq: Status: Active Protocol: Activity Type Activity Date Activity User E-Sign Co-Sign Detail Recorded Client Recorded Date Recorded By Document 12/06/17 13:51 [id number] 12/06/17 14:18 TM Document 12/13/17 14:37 TM [id number] 12/13/17 14:48 TM Document 12/20/17 15:46 TM [id number] 12/20/17 16:01 TM Document 12/27/17 13:41 TM [id number] 12/27/17 13:53 TM Document 01/03/18 14:00 TM [id number] 01/03/18 14:21 12/06/17 12/13/17 12/20/17 13:51 14:37 15:46 Wound Center Nurse 2 #9 Lower Lumbar- Midline -Time 13:51 14:37 15:46 -Correct Patient Yes Yes Yes -Correct Side, Site, Position Yes Yes Yes -Correct Procedure Yes Yes Yes -Procedure Performed Yes Yes Yes -Type of Procedure Debridement Debridement Debridement -Clinical Debridement Subcutaneous Subcutaneous Subcutaneous -Post Debridement Size (cm) - Length 13.9 13.0 13.8 -Post Debridement Size (cm) - Width 4.5 4.6 3.8 -Post Debridement Size (cm) - Depth 0.7 0.8 0.5 -Total Square Cm 62.55 59.80 52.44 -Wound/Ulcer Outcome Not Healed Not Healed Not Healed -Ulcer Cleansing Rinsed/ Rinsed/ Rinsed/ Irrigated with Irrigated with Irrigated with Saline Saline Saline -Foul Odor after Cleansing No No No -Bioengineered Tissue No No No -Topical Lidocaine (%) 5 4 4 -Bleeding Controlled with Pressure Pressure Pressure -Treatment Response Procedure Procedure Procedure Tolerated Well Tolerated Well Tolerated Well Pain Scale: 0-10 Numeric Is Patient Pain Free? Yes Yes Yes 12/27/17 01/03/18 13:41 14:00 Wound Center Nurse 2 #9 Lower Lumbar- Midline -Time 13:41 14:00 -Correct Patient Yes Yes -Correct Side, Site, Position Yes Yes -Correct Procedure Yes Yes -Procedure Performed Yes Yes -Type of Procedure Debridement Debridement -Clinical Debridement Subcutaneous Subcutaneous -Post Debridement Size (cm) - Length 13.8 13.8 -Post Debridement Size (cm) - Width 4.4 4.5 -Post Debridement Size (cm) - Depth 0.4 0.5 -Total Square Cm 60.72 62.10 -Wound/Ulcer Outcome Not Healed Not Healed -Ulcer Cleansing Rinsed/ Rinsed/ Irrigated with Irrigated with Saline Saline -Foul Odor after Cleansing No No -Bioengineered Tissue No No -Topical Lidocaine (%) 4 5 -Bleeding Controlled with Pressure Pressure -Treatment Response Procedure Procedure Tolerated Well Tolerated Well Pain Scale: 0-10 Numeric Is Patient Pain Free? Yes Yes Wound debrided: lower lumbar midline Laterality: Not Applicable Type of Debridement: Excisional debridement Anesthesia Used: 4% Lidocaine Solution Depth: Down to and including healthy tissue, in the subcutaneous layer Percentage of wound debrided: 100 Instrument Used: 5mm curette Tissue Removed: yellow slough, devitalized tissue Severity: Fat Layer Exposed Amount of bleeding with debridement: Moderate Bleeding Controlled with: Gel Foam Patient tolerated procedure well Assessment/Plan Active Problems (Last Reviewed 11/19/17 @ 16:27 by Micky Mauro MD) Nonhealing surgical wound (Chronic) Open wound of lower back (Chronic) Cellulitis (Chronic) Chronic kidney disease (Chronic) Assessment: chronic surgical wound dehiscence lumbar with complex abscess and recent surgical debridement. malnutrition. other multiple comorbidities. edema bilateral lower extremities. Bleeding site from within wound controlled with combination of silver nitrate and Surgifoam. Bleeding appears to be controlled. venous insufficiency. immunocompromised status. Plan: Cuong's wound was evaluated and debrided today. There continues to be mild improvement. Less slough present today. Debridement done as documented above, procedure was well tolerated. Will complete antibiotics for positive wound culture. DAVID placed again. Due to his heavy bioburden and frequently positive wound cultures Cuong would benefit from treatment with Puraply AM to help with healing of his wound to decrease microbial burden. Approval for use of this will be requested through his insurance. Continue increased protein intake. F/U in 1 week for wound care and Saturday and Saturday for vac changes.
== END 2018-01-03 23:59 ==
LOC: WC 13:15
PROVIDERS: Family Provider Family Medicine; PCP Family Medicine; Visit Provider Family Medicine
DX: T81.4XXA Infection following a procedure, initial encounter (principal); L03.312 Cellulitis of back [any part except buttock and flank]; T81.30XA Disruption of wound, unspecified, initial encounter; Y83.8 Other surgical procedures as the cause of abnormal reaction of the patient, or of later complication, without mention of misadventure at the time of the procedure; I87.2 Venous insufficiency (chronic) (peripheral); N18.9 Chronic kidney disease, unspecified; B95.62 Methicillin resistant Staphylococcus aureus infection as the cause of diseases classified elsewhere
CPT/HCPCS: 11042; 11045; 87070; 87075; 87077; 87186; 87205; 97606; 97607; 97608; 99211; 99212; 99213; G0463

== ENCOUNTER → 2018-01-10 09:50 | Outpatient (CLI) | payer MEDICARE, OTHER, SELFPAY ==
[2015-10-31 10:00] VITALS: BMI 34.9
[2018-01-10 10:14] LABS: Hematocrit 32.2 % (40-54); Hemoglobin 10.3 g/dl (13.0-16.5)
== END ==
PROVIDERS: Family Provider Family Medicine; PCP Family Medicine; Visit Provider Internal Medicine Nephrology
DX: T81.4XXA Infection following a procedure, initial encounter (principal); L03.312 Cellulitis of back [any part except buttock and flank]; T81.30XA Disruption of wound, unspecified, initial encounter; Y83.8 Other surgical procedures as the cause of abnormal reaction of the patient, or of later complication, without mention of misadventure at the time of the procedure; I87.2 Venous insufficiency (chronic) (peripheral); B99.8 Other infectious disease; N18.3 Chronic kidney disease, stage 3 (moderate); D63.1 Anemia in chronic kidney disease
CPT/HCPCS: 15271; 15272; 36415; 85014; 85018; 87070; 87075; 87205; Q4172

== ENCOUNTER → 2018-01-17 12:06 | Outpatient (CLI) | payer MEDICARE, OTHER, SELFPAY ==
[2015-10-31 10:00] VITALS: BMI 34.9
[2018-01-17 12:36] LABS: Absolute Lymphocyte Count 1.37 X10^3/ul (0.83-4.51); Absolute Neutrophil Count 3.6 X10^3/uL (2.0-7.7); Basophil# 0.03 X10^3/uL; Basophil% 0.5 % (0-1); Eosinophil# 0.45 X10^3/uL; Eosinophils% 7.2 % (0-5); Hematocrit 32.6 % (40-54); Hemoglobin 9.9 g/dl (13.0-16.5); Lymphocyte # 1.37 X10^3/ul (4.0); Mean Corp Hgb Conc 30.4 g/gl (32-36); Mean Corpuscular Volume 108.7 fL (80-94); Mean Platelet Vol. 9.6 fl (6.2-12.0); Monocyte% 12.8 % (0-10); Neutrophil # 3.58 X10^3/uL (2.7-7.7); Neutrophil % 57.5 % (47-70); Platelet Count 304 K/mm3 (150-450); RBC Distribution Width CV 16.9 % (11.6-14.6); RBC Distribution Width SD 67.2 fl (35.1-43.9); White Blood Count 6.2 K/mm3 (4.4-11.0)
[2018-01-17 12:39] LABS: Differential Indicated SCAN CRITERIA MET; POSITIVE COUNT NO; POSITIVE DIFFERENTIAL NO; POSITIVE MORPHOLOGY YES
[2018-01-17 12:45] LABS: Albumin, Serum 2.7 g/dL (3.2-5.0); BUN 46 mg/dL (7-18); Calcium,Total 8.7 mg/dL (8.5-10.1); Chloride 107 mmol/L (98-107); EST Glomerular Filtration Rate 25 mL/min (>60); Est Glom Filt Rate - Afr Amer 30 mL/min (>60); Glucose 133 mg/dL (74-106); Phosphorus 3.8 mg/dL (2.5-4.9); Potassium 3.3 mmol/L (3.5-5.1); Sodium Level 144 mmol/L (136-145)
[2018-01-17 15:59] VITALS: BP 114/56; PULSE 76; RESP 16; TEMP 36.7
== END ==
PROVIDERS: Family Provider Family Medicine; PCP Family Medicine; Visit Provider Internal Medicine Nephrology
DX: N18.3 Chronic kidney disease, stage 3 (moderate) (principal); D63.1 Anemia in chronic kidney disease; T81.4XXA Infection following a procedure, initial encounter; L03.312 Cellulitis of back [any part except buttock and flank]; T81.30XA Disruption of wound, unspecified, initial encounter; Y83.8 Other surgical procedures as the cause of abnormal reaction of the patient, or of later complication, without mention of misadventure at the time of the procedure; I87.2 Venous insufficiency (chronic) (peripheral); B99.8 Other infectious disease
CPT/HCPCS: 36415; 80069; 85025; 87070; 87075; 87205; 96372; J0885

== ENCOUNTER → 2018-01-20 10:43 | Outpatient (CLI) | payer MEDICARE, OTHER, SELFPAY ==
[2015-10-31 10:00] VITALS: BMI 34.9
== END ==
PROVIDERS: Family Provider Family Medicine; PCP Family Medicine; Visit Provider Family Medicine
DX: K52.9 Noninfective gastroenteritis and colitis, unspecified (principal)

== ENCOUNTER → 2018-01-31 09:54 | Outpatient (CLI) | payer MEDICARE, OTHER, SELFPAY ==
[2015-10-31 10:00] VITALS: BMI 34.9
[2018-01-31 10:02] VITALS: BP 124/62; PULSE 68; RESP 16; TEMP 36.6; O2SAT 100; BMI 26.8
[2018-01-31 10:13] LABS: Hematocrit 32.7 % (40-54); Hemoglobin 10.4 g/dl (13.0-16.5)
== END ==
PROVIDERS: Family Provider Family Medicine; PCP Family Medicine; Visit Provider Internal Medicine Nephrology
DX: N18.3 Chronic kidney disease, stage 3 (moderate) (principal); D63.1 Anemia in chronic kidney disease; T81.4XXA Infection following a procedure, initial encounter; L03.312 Cellulitis of back [any part except buttock and flank]; T81.30XA Disruption of wound, unspecified, initial encounter; Y83.8 Other surgical procedures as the cause of abnormal reaction of the patient, or of later complication, without mention of misadventure at the time of the procedure; I87.2 Venous insufficiency (chronic) (peripheral); B99.8 Other infectious disease
CPT/HCPCS: 36415; 85014; 85018; 87070; 87075; 87077; 87205; 96372; J0885

== ENCOUNTER 2018-01-31 16:15 | Outpatient (RCR) | payer MEDICARE, OTHER, SELFPAY ==
[2015-10-31 10:00] VITALS: BMI 34.9
[2018-01-04 00:46] VITALS: BP 130/74; PULSE 76; RESP 16; TEMP 36.7; BMI 56.5
[2018-01-08 10:05] VITALS: BP 120/65; PULSE 79; RESP 18; TEMP 36.2; BMI 56.5
[2018-01-10 13:45] VITALS: RESP 16; TEMP 36.9; BMI 56.5
--- NOTE | 2018-01-10 17:49 | PCM.WC.PN ---
(1) Nonhealing surgical wound Status: Chronic Current Visit: Yes Qualifiers: Encounter type: subsequent encounter Code(s): T81.89XA - Other complications of procedures, not elsewhere classified, initial encounter (2) Open wound of lower back Status: Chronic Current Visit: Yes Code(s): S31.000A - Unspecified open wound of lower back and pelvis without penetration into retroperitoneum, initial encounter (3) Cellulitis Status: Chronic Current Visit: Yes Qualifiers: Site of cellulitis: trunk Site of cellulitis of trunk: back Qualified Code(s): L03.312 - Cellulitis of back [any part except buttock] Code(s): L03.90 - Cellulitis, unspecified Type of Wound Date of Service: 01/10/18 Chief Complaint: Nonhealing surgical wound of lower back History of Wound: Mr. Marshall is a 72-yo who has been seen here at the wound center for a nonhealing surgical wound of his lower back s/p surgical debridement for an abscess s/p lumbar spine surgery. His original surgery on his lower back was approximately 18 months ago and he has had multiple complications since that time. He underwent surgical debridement on 03/04/[address] Davila at [facility] in [place] and was discharged with a wound vac for healing by secondary intention with possible muscle flap closure in the future. He followed up with his surgeon on 04/18/17 for further evaluation and recommendations and they plan to close the wound with a muscle flap but he continues to develop infections. He is also being seen by Infectious Disease. On today's date, October 28, 2017, I was asked to see the patient at the wound center where he had presented as a nurse visit for a change of his wound VAC. The wound VAC is the current modality used to treat a large open surgical wound in the lumbar area. Upon changing the dressing, a small bleeding site was encountered at the lower pole of the open wound, and had not responded to manual pressure which had been applied. I was asked to see the patient for control of a small amount of bleeding at the site, which did not appear to be responding to manual pressure. Initial intervention involved the use of silver nitrate sticks, which did not appear to be effective in controlling the small amount of bleeding from the very localized site in the inferior portion of the wound. Therefore, Surgifoam applied topically, and held in place manually for several minutes. At this juncture, the bleeding appeared to be eliminated, and the site remained dry. The nursing staff was instructed to observe the area for at least several more minutes, after which reapplication of the wound VAC, with the Surgifoam remaining in place, was recommended. Progress of Wound: Cuong is here today for follow up of his surgical wound of his lumbar spine. He has not had any change in pain or amount of drainage. He completed doxycycline and tolerated this well. He has been doing well with his DAVID wound vac. Denies fever or chills. He saw Dr. Marcum for second opinion regarding surgical closure at [facility] and he stated that he does not do closure that Cuong would need. He did mention doing a culture to quantify the amount of bacteria present in the wound which may be helpful to determine if surgical wound closure would be recommended. - Physical Exam Vital Signs Temp Pulse Resp BP 98.4 F 79 16 120/65 01/10/18 13:45 01/08/18 10:05 01/10/18 13:45 01/08/18 10:05 General: Alert, Oriented x3, Cooperative, No apparent distress HEENT: Atraumatic, Normocephalic Oral: Moist Mucosa Skin: Ulcer/ Wound Wound Measurements and Assessment WC - Nurse 1 - General Ulcer Measurement Start: 01/08/18 10:04 Freq: Status: Active Protocol: Activity Type Activity Date Activity User E-Sign Co-Sign Detail Recorded Client Recorded Date Recorded By Document 01/08/18 10:05 RB [id number] 01/08/18 10:06 RB Document 01/10/18 13:45 [id number] 01/10/18 14:00 01/08/18 01/10/18 10:05 13:45 Wound Center Nurse 1 [Ulcer Assessment] #9 Lower Lumbar- Midline -Combined with other wound No -Current Size (cm) - Length 13.6 -Current Size (cm) - Width 4.4 -Current Size (cm) - Depth 0.7 -Total Square Cm 59.84 -Photo Taken No -Epithelialization None Present -Tunneling No No -Undermining/Tunneling No No -Circular Undermining No No -Classification - Thickness Full Thickness without Exposed Support Structure -Exudate Amt Medium (34-66%) Large (67-100%) -Exudate Type Serosanguineous Serosanguineous -Wound Margin Thickened & Distinct, Rolled Under Outline Attached -Granulation Amt Large (67-100%) Medium (34-66%) -Granulation Quality [place] Pale [place] -Slough/Fibrin Yes Yes -Necrosis Amt Small (1-33%) Medium (34-66%) -Necrotic Tissue Type Adherent Slough Adherent Slough -Structure Exposed N/A -Texture (Uma-wound Skin Appearance) Assessed Scarring -Moisture (Uma-wound Skin Appearance Maceration Dry/Scaly ) -Color (Uma-wound Skin Appearance) Assessed Erythema -Temperature (Uma-wound Skin No Abnormality No Abnormality Appearance) (Pt Warm) (Pt Warm) -Tenderness on Palpation (Uma-wound No Yes Skin Appearance) -Ulcer Cleansing Wound Cleanser Wound Cleanser -Foul Odor after Cleansing No No -Anesthetic Used 4% Lidocaine Solution WC - Nurse 2 - General Ulcer CM Notes Start: 01/08/18 10:04 Freq: Status: Active Protocol: Activity Type Activity Date Activity User E-Sign Co-Sign Detail Recorded Client Recorded Date Recorded By Document 01/10/18 14:58 [id number] 01/10/18 15:02 01/10/18 14:58 Wound Center Nurse 2 [Procedure/Treatment] -Time 14:59 -Correct Patient Yes -Correct Side, Site, Position Yes -Correct Procedure Yes -Procedure Performed Yes -Type of Procedure Debridement -Clinical Debridement Subcutaneous -Post Debridement Size (cm) - Length 13.6 -Post Debridement Size (cm) - Width 4.5 -Post Debridement Size (cm) - Depth 0.5 -Total Square Cm 61.20 -Wound/Ulcer Outcome Not Healed -Ulcer Cleansing Rinsed/ Irrigated with Saline -Foul Odor after Cleansing No -Bioengineered Tissue Yes -Type of bioengineered Tissue [id number] -Expiration Date 04/23/20 -Product Lot Number [id number] -Percent Used 100 -Saline Lot Number [id number] -Topical Lidocaine (%) 4 -Bleeding Controlled with Pressure SURGIFOAM -Treatment Response Procedure Tolerated Well [See Physician Procedure note for Specifics] Pain Scale: 0-10 Numeric [Pain] -Is Patient Pain Free? Yes Psych/Mental Status: Normal Affect, Appropriate Debridement Note Post-Debridement Measurements/Treatment WC - Nurse 2 - General Ulcer CM Notes Start: 01/08/18 10:04 Freq: Status: Active Protocol: Activity Type Activity Date Activity User E-Sign Co-Sign Detail Recorded Client Recorded Date Recorded By Document 01/10/18 14:58 [id number] 01/10/18 15:02 01/10/18 14:58 Wound Center Nurse 2 #9 Lower Lumbar- Midline -Time 14:59 -Correct Patient Yes -Correct Side, Site, Position Yes -Correct Procedure Yes -Procedure Performed Yes -Type of Procedure Debridement -Clinical Debridement Subcutaneous -Post Debridement Size (cm) - Length 13.6 -Post Debridement Size (cm) - Width 4.5 -Post Debridement Size (cm) - Depth 0.5 -Total Square Cm 61.20 -Wound/Ulcer Outcome Not Healed -Ulcer Cleansing Rinsed/ Irrigated with Saline -Foul Odor after Cleansing No -Bioengineered Tissue Yes -Type of bioengineered Tissue [id number] -Expiration Date 04/23/20 -Product Lot Number [id number] -Percent Used 100 -Saline Lot Number [id number] -Topical Lidocaine (%) 4 -Bleeding Controlled with Pressure SURGIFOAM -Treatment Response Procedure Tolerated Well Pain Scale: 0-10 Numeric Is Patient Pain Free? Yes Wound debrided: lower lumbar midline Laterality: Not Applicable Type of Debridement: Excisional debridement Anesthesia Used: 4% Lidocaine Solution Depth: Down to and including healthy tissue, in the subcutaneous layer Percentage of wound debrided: 100 Instrument Used: 5mm curette Tissue Removed: yellow slough, devitalized tissue Severity: Fat Layer Exposed Amount of bleeding with debridement: Mild Bleeding Controlled with: Compression and gauze Patient tolerated procedure well Assessment/Plan Active Problems (Last Reviewed 11/19/17 @ 16:27 by Micky Mauro MD) Nonhealing surgical wound (Chronic) Open wound of lower back (Chronic) Cellulitis (Chronic) Assessment: chronic surgical wound dehiscence lumbar with complex abscess and recent surgical debridement. malnutrition. other multiple comorbidities. edema bilateral lower extremities. Bleeding site from within wound controlled with combination of silver nitrate and Surgifoam. Bleeding appears to be controlled. venous insufficiency. immunocompromised status. Plan: J[place] wound was evaluated and debrided today. There continues to be mild improvement. Surgifoam was applied to several areas of to control bleeding. Puraply was approved and applied today per navigation officer guidelines. He tolerated this well. He and his were instructed regarding leaving wound veil in place and not disturbing puraply. Dry gauze and ABD applied as secondary dressing and will be changed daily to twice daily as needed for drainage. Wound culture taken to evaluate for infection due to surrounding erythema. Due to his heavy bioburden and frequently positive wound cultures Cuong would benefit from treatment with Puraply AM to help with healing of his wound to decrease microbial burden and first application of this was done today. Continue increased protein intake. F/U in 1 week for wound care.
[2018-01-17 12:48] VITALS: BP 120/61; PULSE 98; RESP 18; TEMP 36.7; BMI 56.5
--- NOTE | 2018-01-17 20:08 | PCM.WC.PN ---
(1) Nonhealing surgical wound Status: Chronic Current Visit: Yes Qualifiers: Encounter type: subsequent encounter Code(s): T81.89XA - Other complications of procedures, not elsewhere classified, initial encounter (2) Open wound of lower back Status: Chronic Current Visit: Yes Code(s): S31.000A - Unspecified open wound of lower back and pelvis without penetration into retroperitoneum, initial encounter (3) Cellulitis Status: Chronic Current Visit: Yes Qualifiers: Site of cellulitis: trunk Site of cellulitis of trunk: back Qualified Code(s): L03.312 - Cellulitis of back [any part except buttock] Code(s): L03.90 - Cellulitis, unspecified Type of Wound Date of Service: 01/17/18 Chief Complaint: Nonhealing surgical wound of lower back History of Wound: Mr. Marshall is a 72-yo who has been seen here at the wound center for a nonhealing surgical wound of his lower back s/p surgical debridement for an abscess s/p lumbar spine surgery. His original surgery on his lower back was approximately 18 months ago and he has had multiple complications since that time. He underwent surgical debridement on 03/04/[address] Davila at [facility] in [place] and was discharged with a wound vac for healing by secondary intention with possible muscle flap closure in the future. He followed up with his surgeon on 04/18/17 for further evaluation and recommendations and they plan to close the wound with a muscle flap but he continues to develop infections. He is also being seen by Infectious Disease. On today's date, October 28, 2017, I was asked to see the patient at the wound center where he had presented as a nurse visit for a change of his wound VAC. The wound VAC is the current modality used to treat a large open surgical wound in the lumbar area. Upon changing the dressing, a small bleeding site was encountered at the lower pole of the open wound, and had not responded to manual pressure which had been applied. I was asked to see the patient for control of a small amount of bleeding at the site, which did not appear to be responding to manual pressure. Initial intervention involved the use of silver nitrate sticks, which did not appear to be effective in controlling the small amount of bleeding from the very localized site in the inferior portion of the wound. Therefore, Surgifoam applied topically, and held in place manually for several minutes. At this juncture, the bleeding appeared to be eliminated, and the site remained dry. The nursing staff was instructed to observe the area for at least several more minutes, after which reapplication of the wound VAC, with the Surgifoam remaining in place, was recommended. Progress of Wound: Cuong is here today for follow up of his surgical wound of his lumbar spine. He has not had any change in pain or amount of drainage. Wound culture last week was negative. Cuong tolerated Puraply application and dry dressings. His dressings needed to be changed twice daily at times due to drainage. Denies fever or chills. He saw Dr. Marcum for second opinion regarding surgical closure at [facility] and he stated that he does not do closure that Cuong would need. He did mention doing a culture to quantify the amount of bacteria present in the wound which may be helpful to determine if surgical wound closure would be recommended. - Physical Exam Vital Signs Temp Pulse Resp BP 98.0 F 98 18 120/61 01/17/18 12:48 01/17/18 12:48 01/17/18 12:48 01/17/18 12:48 General: Alert, Oriented x3, Cooperative, No apparent distress HEENT: Atraumatic, Normocephalic Oral: Moist Mucosa Extremities: Edema Skin: Ulcer/ Wound Wound Measurements and Assessment WC - Nurse 1 - General Ulcer Measurement Start: 01/08/18 10:04 Freq: Status: Active Protocol: Activity Type Activity Date Activity User E-Sign Co-Sign Detail Recorded Client Recorded Date Recorded By Document 01/17/18 12:48 [id number] 01/17/18 12:50 01/17/18 12:48 Wound Center Nurse 1 [Ulcer Assessment] #9 Lower Lumbar- Midline -Combined with other wound No -Current Size (cm) - Length 14.3 -Current Size (cm) - Width 4.9 -Current Size (cm) - Depth 0.6 -Total Square Cm 70.07 -Photo Taken No -Epithelialization None Present -Tunneling No -Undermining/Tunneling No -Circular Undermining No -Exudate Amt Medium (34-66%) -Exudate Type Yellow/Green -Wound Margin Distinct, Outline Attached -Granulation Amt Medium (34-66%) -Granulation Quality Pale [place] -Slough/Fibrin Yes -Necrosis Amt None Present (0 %) -Necrotic Tissue Type Adherent Slough -Texture (Uma-wound Skin Appearance) No Abnormality Assessed -Moisture (Uma-wound Skin Appearance No Abnormality ) Assessed -Color (Uma-wound Skin Appearance) Assessed Erythema -Temperature (Uma-wound Skin No Abnormality Appearance) (Pt Warm) -Tenderness on Palpation (Uma-wound Yes Skin Appearance) -Ulcer Cleansing Wound Cleanser -Foul Odor after Cleansing No -Anesthetic Used 4% Lidocaine Solution [Edema Assessment] -Lower Limb Edema Present NA - Nurse 2 - General Ulcer CM Notes Start: 01/08/18 10:04 Freq: Status: Active Protocol: Activity Type Activity Date Activity User E-Sign Co-Sign Detail Recorded Client Recorded Date Recorded By Document 01/17/18 13:19 [id number] 01/17/18 13:22 TM 01/17/18 13:19 Wound Center Nurse 2 [Procedure/Treatment] #9 Lower Lumbar- Midline -Time 13:20 -Correct Patient Yes -Correct Side, Site, Position Yes -Correct Procedure Yes -Procedure Performed Yes -Type of Procedure Debridement -Clinical Debridement Subcutaneous -Post Debridement Size (cm) - Length 14.0 -Post Debridement Size (cm) - Width 4.8 -Post Debridement Size (cm) - Depth 0.5 -Total Square Cm 67.20 -Wound/Ulcer Outcome Not Healed -Ulcer Cleansing Rinsed/ Irrigated with Saline -Foul Odor after Cleansing No -Bioengineered Tissue Yes -Type of bioengineered Tissue [id number] -Expiration Date 04/23/20 -Product Lot Number [id number] -Percent Used 100 -Saline Lot Number [id number] -Topical Lidocaine (%) 4 -Bleeding Controlled with Pressure -Treatment Response Procedure Tolerated Well [See Physician Procedure note for Specifics] Pain Scale: 0-10 Numeric [Pain] -Is Patient Pain Free? Yes Psych/Mental Status: Normal Affect, Appropriate Debridement Note Post-Debridement Measurements/Treatment - Nurse 2 - General Ulcer CM Notes Start: 01/08/18 10:04 Freq: Status: Active Protocol: Activity Type Activity Date Activity User E-Sign Co-Sign Detail Recorded Client Recorded Date Recorded By Document 01/10/18 14:58 [id number] 01/10/18 15:02 TM Document 01/17/18 13:19 [id number] 01/17/18 13:22 01/10/18 01/17/18 14:58 13:19 Wound Center Nurse 2 #9 Lower Lumbar- Midline -Time 14:59 13:20 -Correct Patient Yes Yes -Correct Side, Site, Position Yes Yes -Correct Procedure Yes Yes -Procedure Performed Yes Yes -Type of Procedure Debridement Debridement -Clinical Debridement Subcutaneous Subcutaneous -Post Debridement Size (cm) - Length 13.6 14.0 -Post Debridement Size (cm) - Width 4.5 4.8 -Post Debridement Size (cm) - Depth 0.5 0.5 -Total Square Cm 61.20 67.20 -Wound/Ulcer Outcome Not Healed Not Healed -Ulcer Cleansing Rinsed/ Rinsed/ Irrigated with Irrigated with Saline Saline -Foul Odor after Cleansing No No -Bioengineered Tissue Yes Yes -Type of bioengineered Tissue [id number] -Expiration Date 04/23/20 04/23/20 -Product Lot Number [id number] -Percent Used 100 100 -Saline Lot Number [id number] -Topical Lidocaine (%) 4 4 -Bleeding Controlled with Pressure Pressure SURGIFOAM -Treatment Response Procedure Procedure Tolerated Well Tolerated Well Pain Scale: 0-10 Numeric Is Patient Pain Free? Yes Yes Wound debrided: lower lumbar midline Laterality: Not Applicable Type of Debridement: Excisional debridement Anesthesia Used: 4% Lidocaine Solution Depth: Down to and including healthy tissue, in the subcutaneous layer Percentage of wound debrided: 100 Instrument Used: 5mm curette Tissue Removed: yellow slough, devitalized tissue Severity: Fat Layer Exposed Amount of bleeding with debridement: Moderate Bleeding Controlled with: Gel Foam Patient tolerated procedure well Assessment/Plan Active Problems (Last Reviewed 11/19/17 @ 16:27 by Micky Mauro MD) Nonhealing surgical wound (Chronic) Open wound of lower back (Chronic) Cellulitis (Chronic) Assessment: chronic surgical wound dehiscence lumbar with complex abscess and recent surgical debridement. malnutrition. other multiple comorbidities. edema bilateral lower extremities. Bleeding site from within wound controlled with combination of silver nitrate and Surgifoam. Bleeding appears to be controlled. venous insufficiency. immunocompromised status. Plan: Jairo wound was evaluated and debrided today. There continues to be mild improvement. Surgifoam was applied to several areas of to control bleeding. Puraply was applied today per hoop puncher guidelines. He tolerated this well. He and his were instructed regarding leaving wound veil in place and not disturbing puraply. Dry gauze and ABD applied as secondary dressing and will be changed daily to twice daily as needed for drainage. Wound culture taken to evaluate for infection due to continued surrounding erythema. Continue increased protein intake. F/U in 2 weeks for wound care.
--- NOTE | 2018-01-17 20:11 | PN.PCM_ITS ---
(1) Nonhealing surgical wound Status: Chronic Current Visit: Yes Qualifiers: Encounter type: subsequent encounter Code(s): T81.89XA - Other complications of procedures, not elsewhere classified , initial encounter (2) Open wound of lower back Status: Chronic Current Visit: Yes Code(s): S31.000A - Unspecified open wound of lower back and pelvis without penetration into retroperitoneum, initial encounter (3) Cellulitis Status: Chronic Current Visit: Yes Qualifiers: Site of cellulitis: trunk Site of cellulitis of trunk: back Qualified Code(s): L03.312 - Cellulitis of back [any part except buttock] Code(s): L03.90 - Cellulitis, unspecified Type of Wound Date of Service: 01/17/18 Chief Complaint: Nonhealing surgical wound of lower back History of Wound: Mr. Marshall is a 72-yo who has been seen here at the wound center for a nonhealing surgical wound of his lower back s/p surgical debridement for an abscess s/p lumbar spine surgery. His original surgery on his lower back was approximately 18 months ago and he has had multiple complications since that time. He underwent surgical debridement on 03/04/[address] Davila at [facility] in [place] and was discharged with a wound vac for healing by secondary intention with possible muscle flap closure in the future. He followed up with his surgeon on 04/18/17 for further evaluation and recommendations and they plan to close the wound with a muscle flap but he continues to develop infections. He is also being seen by Infectious Disease. On today's date, October 28, 2017, I was asked to see the patient at the wound center where he had presented as a nurse visit for a change of his wound VAC. The wound VAC is the current modality used to treat a large open surgical wound in the lumbar area. Upon changing the dressing, a small bleeding site was encountered at the lower pole of the open wound, and had not responded to manual pressure which had been applied. I was asked to see the patient for control of a small amount of bleeding at the site, which did not appear to be responding to manual pressure. Initial intervention involved the use of silver nitrate sticks, which did not appear to be effective in controlling the small amount of bleeding from the very localized site in the inferior portion of the wound. Therefore, Surgifoam applied topically, and held in place manually for several minutes. At this juncture, the bleeding appeared to be eliminated, and the site remained dry. The nursing staff was instructed to observe the area for at least several more minutes, after which reapplication of the wound VAC, with the Surgifoam remaining in place, was recommended. Progress of Wound: Cuong is here today for follow up of his surgical wound of his lumbar spine. He has not had any change in pain or amount of drainage. Wound culture last week was negative. Cuong tolerated Puraply application and dry dressings. His dressings needed to be changed twice daily at times due to drainage. Denies fever or chills. He saw Dr. Marcum for second opinion regarding surgical closure at [facility] and he stated that he does not do closure that Cuong would need. He did mention doing a culture to quantify the amount of bacteria present in the wound which may be helpful to determine if surgical wound closure would be recommended. - Physical Exam Vital Signs Temp Pulse Resp BP 98.0 F 98 18 120/61 01/17/18 12:48 01/17/18 12:48 01/17/18 12:48 01/17/18 12:48 General: Alert, Oriented x3, Cooperative, No apparent distress HEENT: Atraumatic, Normocephalic Oral: Moist Mucosa Extremities: Edema Skin: Ulcer/ Wound Wound Measurements and Assessment WC - Nurse 1 - General Ulcer Measurement Start: 01/08/18 10:04 Freq: Status: Active Protocol: Activity Type Activity Date Activity User E-Sign Co-Sign Detail Recorded Client Recorded Date Recorded By Document 01/17/18 12:48 [id number] 01/17/18 12:50 01/17/18 12:48 Wound Center Nurse 1 [Ulcer Assessment] #9 Lower Lumbar- Midline -Combined with other wound No -Current Size (cm) - Length 14.3 -Current Size (cm) - Width 4.9 -Current Size (cm) - Depth 0.6 -Total Square Cm 70.07 -Photo Taken No -Epithelialization None Present -Tunneling No -Undermining/Tunneling No -Circular Undermining No -Exudate Amt Medium (34-66%) -Exudate Type Yellow/Green -Wound Margin Distinct, Outline Attached -Granulation Amt Medium (34-66%) -Granulation Quality Pale [place] -Slough/Fibrin Yes -Necrosis Amt None Present (0 %) -Necrotic Tissue Type Adherent Slough -Texture (Uma-wound Skin Appearance) No Abnormality Assessed -Moisture (Uma-wound Skin Appearance No Abnormality ) Assessed -Color (Uma-wound Skin Appearance) Assessed Erythema -Temperature (Uma-wound Skin No Abnormality Appearance) (Pt Warm) -Tenderness on Palpation (Uma-wound Yes Skin Appearance) -Ulcer Cleansing Wound Cleanser -Foul Odor after Cleansing No -Anesthetic Used 4% Lidocaine Solution [Edema Assessment] -Lower Limb Edema Present NA - Nurse 2 - General Ulcer CM Notes Start: 01/08/18 10:04 Freq: Status: Active Protocol: Activity Type Activity Date Activity User E-Sign Co-Sign Detail Recorded Client Recorded Date Recorded By Document 01/17/18 13:19 [id number] 01/17/18 13:22 TM 01/17/18 13:19 Wound Center Nurse 2 [Procedure/Treatment] #9 Lower Lumbar- Midline -Time 13:20 -Correct Patient Yes -Correct Side, Site, Position Yes -Correct Procedure Yes -Procedure Performed Yes -Type of Procedure Debridement -Clinical Debridement Subcutaneous -Post Debridement Size (cm) - Length 14.0 -Post Debridement Size (cm) - Width 4.8 -Post Debridement Size (cm) - Depth 0.5 -Total Square Cm 67.20 -Wound/Ulcer Outcome Not Healed -Ulcer Cleansing Rinsed/ Irrigated with Saline -Foul Odor after Cleansing No -Bioengineered Tissue Yes -Type of bioengineered Tissue [id number] -Expiration Date 04/23/20 -Product Lot Number [id number] -Percent Used 100 -Saline Lot Number [id number] -Topical Lidocaine (%) 4 -Bleeding Controlled with Pressure -Treatment Response Procedure Tolerated Well [See Physician Procedure note for Specifics] Pain Scale: 0-10 Numeric [Pain] -Is Patient Pain Free? Yes Psych/Mental Status: Normal Affect, Appropriate Debridement Note Post-Debridement Measurements/Treatment - Nurse 2 - General Ulcer CM Notes Start: 01/08/18 10:04 Freq: Status: Active Protocol: Activity Type Activity Date Activity User E-Sign Co-Sign Detail Recorded Client Recorded Date Recorded By Document 01/10/18 14:58 [id number] 01/10/18 15:02 TM Document 01/17/18 13:19 [id number] 01/17/18 13:22 01/10/18 01/17/18 14:58 13:19 Wound Center Nurse 2 #9 Lower Lumbar- Midline -Time 14:59 13:20 -Correct Patient Yes Yes -Correct Side, Site, Position Yes Yes -Correct Procedure Yes Yes -Procedure Performed Yes Yes -Type of Procedure Debridement Debridement -Clinical Debridement Subcutaneous Subcutaneous -Post Debridement Size (cm) - Length 13.6 14.0 -Post Debridement Size (cm) - Width 4.5 4.8 -Post Debridement Size (cm) - Depth 0.5 0.5 -Total Square Cm 61.20 67.20 -Wound/Ulcer Outcome Not Healed Not Healed -Ulcer Cleansing Rinsed/ Rinsed/ Irrigated with Irrigated with Saline Saline -Foul Odor after Cleansing No No -Bioengineered Tissue Yes Yes -Type of bioengineered Tissue [id number] -Expiration Date 04/23/20 04/23/20 -Product Lot Number [id number] -Percent Used 100 100 -Saline Lot Number [id number] -Topical Lidocaine (%) 4 4 -Bleeding Controlled with Pressure Pressure SURGIFOAM -Treatment Response Procedure Procedure Tolerated Well Tolerated Well Pain Scale: 0-10 Numeric Is Patient Pain Free? Yes Yes Wound debrided: lower lumbar midline Laterality: Not Applicable Type of Debridement: Excisional debridement Anesthesia Used: 4% Lidocaine Solution Depth: Down to and including healthy tissue, in the subcutaneous layer Percentage of wound debrided: 100 Instrument Used: 5mm curette Tissue Removed: yellow slough, devitalized tissue Severity: Fat Layer Exposed Amount of bleeding with debridement: Moderate Bleeding Controlled with: Gel Foam Patient tolerated procedure well Assessment/Plan Active Problems (Last Reviewed 11/19/17 @ 16:27 by Micky Mauro MD) Nonhealing surgical wound (Chronic) Open wound of lower back (Chronic) Cellulitis (Chronic) Assessment: chronic surgical wound dehiscence lumbar with complex abscess and recent surgical debridement. malnutrition. other multiple comorbidities. edema bilateral lower extremities. Bleeding site from within wound controlled with combination of silver nitrate and Surgifoam. Bleeding appears to be controlled. venous insufficiency. immunocompromised status. Plan: Jairo wound was evaluated and debrided today. There continues to be mild improvement. Surgifoam was applied to several areas of to control bleeding. Puraply was applied today per skimmer reverberatory guidelines. He tolerated this well. He and his were instructed regarding leaving wound veil in place and not disturbing puraply. Dry gauze and ABD applied as secondary dressing and will be changed daily to twice daily as needed for drainage. Wound culture taken to evaluate for infection due to continued surrounding erythema. Continue increased protein intake. F/U in 2 weeks for wound care.
[2018-01-23 13:02] VITALS: BP 132/71; PULSE 76; RESP 18; TEMP 36.1; BMI 56.5
--- NOTE | 2018-01-23 19:01 | PCM.WC.PN ---
(1) Nonhealing surgical wound Status: Chronic Qualifiers: Encounter type: subsequent encounter Qualified Code(s): T81.89XD - Other complications of procedures, not elsewhere classified, subsequent encounter Code(s): T81.89XA - Other complications of procedures, not elsewhere classified, initial encounter (2) Open wound of lower back Status: Chronic Code(s): S31.000A - Unspecified open wound of lower back and pelvis without penetration into retroperitoneum, initial encounter Type of Wound Date of Service: 01/23/18 Chief Complaint: Nonhealing surgical wound of lower back History of Wound: Mr. Marshall is a 72-yo who has been seen here at the wound center for a nonhealing surgical wound of his lower back s/p surgical debridement for an abscess s/p lumbar spine surgery. His original surgery on his lower back was approximately 18 months ago and he has had multiple complications since that time. He underwent surgical debridement on 03/04/[address] Davila at [facility] in [place] and was discharged with a wound vac for healing by secondary intention with possible muscle flap closure in the future. He followed up with his surgeon on 04/18/17 for further evaluation and recommendations and they plan to close the wound with a muscle flap but he continues to develop infections. He is also being seen by Infectious Disease. On today's date, October 28, 2017, I was asked to see the patient at the wound center where he had presented as a nurse visit for a change of his wound VAC. The wound VAC is the current modality used to treat a large open surgical wound in the lumbar area. Upon changing the dressing, a small bleeding site was encountered at the lower pole of the open wound, and had not responded to manual pressure which had been applied. I was asked to see the patient for control of a small amount of bleeding at the site, which did not appear to be responding to manual pressure. Initial intervention involved the use of silver nitrate sticks, which did not appear to be effective in controlling the small amount of bleeding from the very localized site in the inferior portion of the wound. Therefore, Surgifoam applied topically, and held in place manually for several minutes. At this juncture, the bleeding appeared to be eliminated, and the site remained dry. The nursing staff was instructed to observe the area for at least several more minutes, after which reapplication of the wound VAC, with the Surgifoam remaining in place, was recommended. Progress of Wound: Courtesy visit for Dr. Wick. Cuong is here for follow-up of his nonhealing surgical wound. He has no new complaints at this time. He has had about 2 applications of Purapply. He also continues to follow-up with ID. - Physical Exam Vital Signs Temp Pulse Resp BP 96.9 F L 76 18 132/71 H 01/23/18 13:02 01/23/18 13:02 01/23/18 13:02 01/23/18 13:02 General: Alert, Oriented x3, Cooperative, No apparent distress HEENT: Atraumatic Oral: Moist Mucosa Neck: Supple Lungs: Normal air movement Abdomen: Non Tender Extremities: No cyanosis Skin: Ulcer/ Wound Wound Measurements and Assessment WC - Nurse 1 - General Ulcer Measurement Start: 01/08/18 10:04 Freq: Status: Active Protocol: Activity Type Activity Date Activity User E-Sign Co-Sign Detail Recorded Client Recorded Date Recorded By Document 01/23/18 13:02 [id number] 01/23/18 13:05 01/23/18 13:02 Wound Center Nurse 1 [Ulcer Assessment] #9 Lower Lumbar- Midline -Combined with other wound No -Current Size (cm) - Length 14.5 -Current Size (cm) - Width 4.5 -Current Size (cm) - Depth 1.0 -Total Square Cm 65.25 -Photo Taken No -Epithelialization Small 1-33% -Tunneling No -Undermining/Tunneling No -Circular Undermining No -Classification - Thickness Full Thickness without Exposed Support Structure -Exudate Amt Large (67-100%) -Exudate Type Serosanguineous -Wound Margin Distinct, Outline Attached -Granulation Amt Small (1-33%) -Granulation Quality Red -Slough/Fibrin Yes -Necrosis Amt Large (67-100%) -Necrotic Tissue Type Adherent Slough -Structure Exposed Fascia Muscle Fat Layer Exposed -Texture (Uma-wound Skin Appearance) Assessed Scarring -Moisture (Uma-wound Skin Appearance No Abnormality ) Assessed -Color (Uma-wound Skin Appearance) No Abnormality Assessed -Temperature (Uma-wound Skin No Abnormality Appearance) (Pt Warm) -Tenderness on Palpation (Uma-wound No Skin Appearance) -Ulcer Cleansing Wound Cleanser -Foul Odor after Cleansing No -Anesthetic Used 4% Lidocaine Solution [Edema Assessment] -Lower Limb Edema Present No WC - Nurse 2 - General Ulcer CM Notes Start: 01/08/18 10:04 Freq: Status: Active Protocol: Activity Type Activity Date Activity User E-Sign Co-Sign Detail Recorded Client Recorded Date Recorded By Document 01/23/18 13:10 MW [id number] 01/23/18 13:28 MW 01/23/18 13:10 Wound Center Nurse 2 [Procedure/Treatment] #9 Lower Lumbar- Midline -Time 13:11 -Correct Patient Yes -Correct Side, Site, Position Yes -Correct Procedure Yes -Procedure Performed Yes -Type of Procedure Debridement -Clinical Debridement Subcutaneous -Post Debridement Size (cm) - Length 14.0 -Post Debridement Size (cm) - Width 4.5 -Post Debridement Size (cm) - Depth 1.0 -Total Square Cm 63.00 -Wound/Ulcer Outcome Not Healed -Ulcer Cleansing Rinsed/ Irrigated with Saline -Foul Odor after Cleansing No -Bioengineered Tissue Yes -Type of bioengineered Tissue [id number] -Expiration Date 04/23/20 -Product Lot Number [id number] -Percent Used 100 -Saline Lot Number [id number] -Bleeding Controlled with Pressure -Treatment Response Procedure Tolerated Well [See Physician Procedure note for Specifics] Pain Scale: 0-10 Numeric [Pain] -Is Patient Pain Free? Yes Musculoskeletal: No Muscle Wasting Neurological: Cranial nerves II-XII grossly intact Psych/Mental Status: Normal Affect Debridement Note Post-Debridement Measurements/Treatment WC - Nurse 2 - General Ulcer CM Notes Start: 01/08/18 10:04 Freq: Status: Active Protocol: Activity Type Activity Date Activity User E-Sign Co-Sign Detail Recorded Client Recorded Date Recorded By Document 01/10/18 14:58 TM [id number] 01/10/18 15:02 TM Document 01/17/18 13:19 TM [id number] 01/17/18 13:22 TM Document 01/23/18 13:10 MW [id number] 01/23/18 13:28 MW 01/10/18 01/17/18 01/23/18 14:58 13:19 13:10 Wound Center Nurse 2 #9 Lower Lumbar- Midline -Time 14:59 13:20 13:11 -Correct Patient Yes Yes Yes -Correct Side, Site, Position Yes Yes Yes -Correct Procedure Yes Yes Yes -Procedure Performed Yes Yes Yes -Type of Procedure Debridement Debridement Debridement -Clinical Debridement Subcutaneous Subcutaneous Subcutaneous -Post Debridement Size (cm) - Length 13.6 14.0 14.0 -Post Debridement Size (cm) - Width 4.5 4.8 4.5 -Post Debridement Size (cm) - Depth 0.5 0.5 1.0 -Total Square Cm 61.20 67.20 63.00 -Wound/Ulcer Outcome Not Healed Not Healed Not Healed -Ulcer Cleansing Rinsed/ Rinsed/ Rinsed/ Irrigated with Irrigated with Irrigated with Saline Saline Saline -Foul Odor after Cleansing No No No -Bioengineered Tissue Yes Yes Yes -Type of bioengineered Tissue [id number] -Expiration Date 04/23/20 04/23/20 04/23/20 -Product Lot Number [id number] -Percent Used 100 100 100 -Saline Lot Number [id number] -Topical Lidocaine (%) 4 4 -Bleeding Controlled with Pressure Pressure Pressure SURGIFOAM -Treatment Response Procedure Procedure Procedure Tolerated Well Tolerated Well Tolerated Well Pain Scale: 0-10 Numeric Is Patient Pain Free? Yes Yes Yes Wound debrided: Lower back Wound Grade/Stage: Stage III Type of Debridement: Excisional debridement Anesthesia Used: 4% Lidocaine Solution Depth: Down to and including healthy tissue, in the subcutaneous layer Percentage of wound debrided: 100 Instrument Used: 7mm curette Tissue Removed: Slough and devitalized tissue Severity: Fat Layer Exposed Amount of bleeding with debridement: Moderate Bleeding Controlled with: Pressure, Silver Nitrate Patient tolerated procedure well Assessment/Plan Assessment: chronic surgical wound dehiscence lumbar with complex abscess and recent surgical debridement. malnutrition. other multiple comorbidities. edema bilateral lower extremities. Bleeding site from within wound controlled with combination of silver nitrate and Surgifoam. Bleeding appears to be controlled. venous insufficiency. immunocompromised status. Plan: Debridement done as documented above. Procedure was well-tolerated. Third application Puraply was done today using 100% of product. Promogran was also applied to the middle portion of wound as Purapply was was applied at the periphery. Covered with wound veil secured with Steri-Strips. ABD and gauze over top. Advised to leave in place for a week. Change outer dressing if soaked. Continue increased protein intake. F/U in [address] Wick. This note was generated with [employer] dictation software. It may contain incorrect words, spelling, and punctuation that were not noted in checking the note before signing.
--- NOTE | 2018-01-23 19:06 | PN.PCM_ITS ---
(1) Nonhealing surgical wound Status: Chronic Qualifiers: Encounter type: subsequent encounter Qualified Code(s): T81.89XD - Other complications of procedures, not elsewhere classified, subsequent encounter Code(s): T81.89XA - Other complications of procedures, not elsewhere classified , initial encounter (2) Open wound of lower back Status: Chronic Code(s): S31.000A - Unspecified open wound of lower back and pelvis without penetration into retroperitoneum, initial encounter Type of Wound Date of Service: 01/23/18 Chief Complaint: Nonhealing surgical wound of lower back History of Wound: Mr. Marshall is a 72-yo who has been seen here at the wound center for a nonhealing surgical wound of his lower back s/p surgical debridement for an abscess s/p lumbar spine surgery. His original surgery on his lower back was approximately 18 months ago and he has had multiple complications since that time. He underwent surgical debridement on 03/04/[address] Davila at [facility] in [place] and was discharged with a wound vac for healing by secondary intention with possible muscle flap closure in the future. He followed up with his surgeon on 04/18/17 for further evaluation and recommendations and they plan to close the wound with a muscle flap but he continues to develop infections. He is also being seen by Infectious Disease. On today's date, October 28, 2017, I was asked to see the patient at the wound center where he had presented as a nurse visit for a change of his wound VAC. The wound VAC is the current modality used to treat a large open surgical wound in the lumbar area. Upon changing the dressing, a small bleeding site was encountered at the lower pole of the open wound, and had not responded to manual pressure which had been applied. I was asked to see the patient for control of a small amount of bleeding at the site, which did not appear to be responding to manual pressure. Initial intervention involved the use of silver nitrate sticks, which did not appear to be effective in controlling the small amount of bleeding from the very localized site in the inferior portion of the wound. Therefore, Surgifoam applied topically, and held in place manually for several minutes. At this juncture, the bleeding appeared to be eliminated, and the site remained dry. The nursing staff was instructed to observe the area for at least several more minutes, after which reapplication of the wound VAC, with the Surgifoam remaining in place, was recommended. Progress of Wound: Courtesy visit for Dr. Wick. Cuong is here for follow-up of his nonhealing surgical wound. He has no new complaints at this time. He has had about 2 applications of Purapply. He also continues to follow-up with ID. - Physical Exam Vital Signs Temp Pulse Resp BP 96.9 F L 76 18 132/71 H 01/23/18 13:02 01/23/18 13:02 01/23/18 13:02 01/23/18 13:02 General: Alert, Oriented x3, Cooperative, No apparent distress HEENT: Atraumatic Oral: Moist Mucosa Neck: Supple Lungs: Normal air movement Abdomen: Non Tender Extremities: No cyanosis Skin: Ulcer/ Wound Wound Measurements and Assessment WC - Nurse 1 - General Ulcer Measurement Start: 01/08/18 10:04 Freq: Status: Active Protocol: Activity Type Activity Date Activity User E-Sign Co-Sign Detail Recorded Client Recorded Date Recorded By Document 01/23/18 13:02 [id number] 01/23/18 13:05 01/23/18 13:02 Wound Center Nurse 1 [Ulcer Assessment] #9 Lower Lumbar- Midline -Combined with other wound No -Current Size (cm) - Length 14.5 -Current Size (cm) - Width 4.5 -Current Size (cm) - Depth 1.0 -Total Square Cm 65.25 -Photo Taken No -Epithelialization Small 1-33% -Tunneling No -Undermining/Tunneling No -Circular Undermining No -Classification - Thickness Full Thickness without Exposed Support Structure -Exudate Amt Large (67-100%) -Exudate Type Serosanguineous -Wound Margin Distinct, Outline Attached -Granulation Amt Small (1-33%) -Granulation Quality Red -Slough/Fibrin Yes -Necrosis Amt Large (67-100%) -Necrotic Tissue Type Adherent Slough -Structure Exposed Fascia Muscle Fat Layer Exposed -Texture (Uma-wound Skin Appearance) Assessed Scarring -Moisture (Uma-wound Skin Appearance No Abnormality ) Assessed -Color (Uma-wound Skin Appearance) No Abnormality Assessed -Temperature (Uma-wound Skin No Abnormality Appearance) (Pt Warm) -Tenderness on Palpation (Uma-wound No Skin Appearance) -Ulcer Cleansing Wound Cleanser -Foul Odor after Cleansing No -Anesthetic Used 4% Lidocaine Solution [Edema Assessment] -Lower Limb Edema Present No WC - Nurse 2 - General Ulcer CM Notes Start: 01/08/18 10:04 Freq: Status: Active Protocol: Activity Type Activity Date Activity User E-Sign Co-Sign Detail Recorded Client Recorded Date Recorded By Document 01/23/18 13:10 MW [id number] 01/23/18 13:28 MW 01/23/18 13:10 Wound Center Nurse 2 [Procedure/Treatment] #9 Lower Lumbar- Midline -Time 13:11 -Correct Patient Yes -Correct Side, Site, Position Yes -Correct Procedure Yes -Procedure Performed Yes -Type of Procedure Debridement -Clinical Debridement Subcutaneous -Post Debridement Size (cm) - Length 14.0 -Post Debridement Size (cm) - Width 4.5 -Post Debridement Size (cm) - Depth 1.0 -Total Square Cm 63.00 -Wound/Ulcer Outcome Not Healed -Ulcer Cleansing Rinsed/ Irrigated with Saline -Foul Odor after Cleansing No -Bioengineered Tissue Yes -Type of bioengineered Tissue [id number] -Expiration Date 04/23/20 -Product Lot Number [id number] -Percent Used 100 -Saline Lot Number [id number] -Bleeding Controlled with Pressure -Treatment Response Procedure Tolerated Well [See Physician Procedure note for Specifics] Pain Scale: 0-10 Numeric [Pain] -Is Patient Pain Free? Yes Musculoskeletal: No Muscle Wasting Neurological: Cranial nerves II-XII grossly intact Psych/Mental Status: Normal Affect Debridement Note Post-Debridement Measurements/Treatment WC - Nurse 2 - General Ulcer CM Notes Start: 01/08/18 10:04 Freq: Status: Active Protocol: Activity Type Activity Date Activity User E-Sign Co-Sign Detail Recorded Client Recorded Date Recorded By Document 01/10/18 14:58 TM [id number] 01/10/18 15:02 TM Document 01/17/18 13:19 TM [id number] 01/17/18 13:22 TM Document 01/23/18 13:10 MW [id number] 01/23/18 13:28 MW 01/10/18 01/17/18 01/23/18 14:58 13:19 13:10 Wound Center Nurse 2 #9 Lower Lumbar- Midline -Time 14:59 13:20 13:11 -Correct Patient Yes Yes Yes -Correct Side, Site, Position Yes Yes Yes -Correct Procedure Yes Yes Yes -Procedure Performed Yes Yes Yes -Type of Procedure Debridement Debridement Debridement -Clinical Debridement Subcutaneous Subcutaneous Subcutaneous -Post Debridement Size (cm) - Length 13.6 14.0 14.0 -Post Debridement Size (cm) - Width 4.5 4.8 4.5 -Post Debridement Size (cm) - Depth 0.5 0.5 1.0 -Total Square Cm 61.20 67.20 63.00 -Wound/Ulcer Outcome Not Healed Not Healed Not Healed -Ulcer Cleansing Rinsed/ Rinsed/ Rinsed/ Irrigated with Irrigated with Irrigated with Saline Saline Saline -Foul Odor after Cleansing No No No -Bioengineered Tissue Yes Yes Yes -Type of bioengineered Tissue [id number] -Expiration Date 04/23/20 04/23/20 04/23/20 -Product Lot Number [id number] -Percent Used 100 100 100 -Saline Lot Number [id number] -Topical Lidocaine (%) 4 4 -Bleeding Controlled with Pressure Pressure Pressure SURGIFOAM -Treatment Response Procedure Procedure Procedure Tolerated Well Tolerated Well Tolerated Well Pain Scale: 0-10 Numeric Is Patient Pain Free? Yes Yes Yes Wound debrided: Lower back Wound Grade/Stage: Stage III Type of Debridement: Excisional debridement Anesthesia Used: 4% Lidocaine Solution Depth: Down to and including healthy tissue, in the subcutaneous layer Percentage of wound debrided: 100 Instrument Used: 7mm curette Tissue Removed: Slough and devitalized tissue Severity: Fat Layer Exposed Amount of bleeding with debridement: Moderate Bleeding Controlled with: Pressure, Silver Nitrate Patient tolerated procedure well Assessment/Plan Assessment: chronic surgical wound dehiscence lumbar with complex abscess and recent surgical debridement. malnutrition. other multiple comorbidities. edema bilateral lower extremities. Bleeding site from within wound controlled with combination of silver nitrate and Surgifoam. Bleeding appears to be controlled. venous insufficiency. immunocompromised status. Plan: Debridement done as documented above. Procedure was well-tolerated. Third application Puraply was done today using 100% of product. Promogran was also applied to the middle portion of wound as Purapply was was applied at the periphery. Covered with wound veil secured with Steri-Strips. ABD and gauze over top. Advised to leave in place for a week. Change outer dressing if soaked. Continue increased protein intake. F/U in [address] Wick. This note was generated with [employer] dictation software. It may contain incorrect words, spelling, and punctuation that were not noted in checking the note before signing.
[2018-01-31 16:21] VITALS: BP 119/64; PULSE 86; RESP 18; TEMP 36.4; BMI 56.5
--- NOTE | 2018-01-31 18:24 | PCM.WC.PN ---
(1) Nonhealing surgical wound Status: Chronic Current Visit: Yes Qualifiers: Encounter type: subsequent encounter Qualified Code(s): T81.89XD - Other complications of procedures, not elsewhere classified, subsequent encounter Code(s): T81.89XA - Other complications of procedures, not elsewhere classified, initial encounter (2) Open wound of lower back Status: Chronic Current Visit: Yes Code(s): S31.000A - Unspecified open wound of lower back and pelvis without penetration into retroperitoneum, initial encounter (3) Cellulitis Status: Chronic Current Visit: Yes Qualifiers: Site of cellulitis: trunk Site of cellulitis of trunk: back Qualified Code(s): L03.312 - Cellulitis of back [any part except buttock] Code(s): L03.90 - Cellulitis, unspecified Type of Wound Chief Complaint: Nonhealing surgical wound of lower back History of Wound: Mr. Marshall is a 72-yo who has been seen here at the wound center for a nonhealing surgical wound of his lower back s/p surgical debridement for an abscess s/p lumbar spine surgery. His original surgery on his lower back was approximately 18 months ago and he has had multiple complications since that time. He underwent surgical debridement on 03/04/[address] Davila at [facility] in [place] and was discharged with a wound vac for healing by secondary intention with possible muscle flap closure in the future. He followed up with his surgeon on 04/18/17 for further evaluation and recommendations and they plan to close the wound with a muscle flap but he continues to develop infections. He is also being seen by Infectious Disease as needed. Progress of Wound: Cuong is here for follow-up of his nonhealing surgical wound of his lower back. He reports having some increased pain at times but denies any odor. Possibly less drainage over the last 48 hours. He has no new complaints at this time. He has had 3 applications of Purapply. - Physical Exam Vital Signs Temp Pulse Resp BP 97.5 F L 86 18 119/64 01/31/18 16:21 01/31/18 16:21 01/31/18 16:21 01/31/18 16:21 General: Alert, Oriented x3, Cooperative, No apparent distress HEENT: Atraumatic, Normocephalic Oral: Moist Mucosa Extremities: Edema Skin: Ulcer/ Wound Wound Measurements and Assessment - Nurse 1 - General Ulcer Measurement Start: 01/08/18 10:04 Freq: Status: Active Protocol: Activity Type Activity Date Activity User E-Sign Co-Sign Detail Recorded Client Recorded Date Recorded By Document 01/31/18 16:21 WA [id number] 01/31/18 16:29 WA 01/31/18 16:21 Wound Center Nurse 1 [Ulcer Assessment] #9 Lower Lumbar- Midline -Combined with other wound No -Current Size (cm) - Length 14.4 -Current Size (cm) - Width 4.7 -Current Size (cm) - Depth 1.2 -Total Square Cm 67.68 -Photo Taken No -Epithelialization Small 1-33% -Tunneling No -Undermining/Tunneling No -Circular Undermining No -Exudate Amt Medium (34-66%) -Exudate Type Purulent -Wound Margin Thickened & Rolled Under -Granulation Amt Medium (34-66%) -Granulation Quality Pale [place] -Necrosis Amt Medium (34-66%) -Necrotic Tissue Type Adherent Slough -Texture (Uma-wound Skin Appearance) Assessed -Moisture (Uma-wound Skin Appearance Assessed ) -Color (Uma-wound Skin Appearance) Assessed -Temperature (Uma-wound Skin No Abnormality Appearance) (Pt Warm) -Tenderness on Palpation (Uma-wound No Skin Appearance) -Ulcer Cleansing Wound Cleanser -Foul Odor after Cleansing No -Anesthetic Used 4% Lidocaine Solution - Nurse 2 - General Ulcer CM Notes Start: 01/08/18 10:04 Freq: Status: Active Protocol: Activity Type Activity Date Activity User E-Sign Co-Sign Detail Recorded Client Recorded Date Recorded By Document 01/31/18 16:57 [id number] 01/31/18 17:20 01/31/18 16:57 Wound Center Nurse 2 [Procedure/Treatment] -Time 16:57 -Correct Patient Yes -Correct Side, Site, Position Yes -Correct Procedure Yes -Procedure Performed Yes -Type of Procedure Debridement -Clinical Debridement Subcutaneous -Post Debridement Size (cm) - Length 14.0 -Post Debridement Size (cm) - Width 4.5 -Post Debridement Size (cm) - Depth 0.5 -Total Square Cm 63.00 -Wound/Ulcer Outcome Not Healed -Ulcer Cleansing Rinsed/ Irrigated with Saline -Foul Odor after Cleansing No -Bioengineered Tissue Yes -Type of bioengineered Tissue [id number] -Topical Lidocaine (%) 4 -Bleeding Controlled with Pressure -Treatment Response Procedure Tolerated Well [See Physician Procedure note for Specifics] Pain Scale: 0-10 Numeric [Pain] -Is Patient Pain Free? Yes Psych/Mental Status: Normal Affect, Appropriate Debridement Note Post-Debridement Measurements/Treatment WC - Nurse 2 - General Ulcer CM Notes Start: 01/08/18 10:04 Freq: Status: Active Protocol: Activity Type Activity Date Activity User E-Sign Co-Sign Detail Recorded Client Recorded Date Recorded By Document 01/10/18 14:58 TM [id number] 01/10/18 15:02 TM Document 01/17/18 13:19 TM [id number] 01/17/18 13:22 TM Document 01/23/18 13:10 MW [id number] 01/23/18 13:28 MW Document 01/31/18 16:57 TM [id number] 01/31/18 17:20 TM 01/10/18 01/17/18 01/23/18 14:58 13:19 13:10 Wound Center Nurse 2 #9 Lower Lumbar- Midline -Time 14:59 13:20 13:11 -Correct Patient Yes Yes Yes -Correct Side, Site, Position Yes Yes Yes -Correct Procedure Yes Yes Yes -Procedure Performed Yes Yes Yes -Type of Procedure Debridement Debridement Debridement -Clinical Debridement Subcutaneous Subcutaneous Subcutaneous -Post Debridement Size (cm) - Length 13.6 14.0 14.0 -Post Debridement Size (cm) - Width 4.5 4.8 4.5 -Post Debridement Size (cm) - Depth 0.5 0.5 1.0 -Total Square Cm 61.20 67.20 63.00 -Wound/Ulcer Outcome Not Healed Not Healed Not Healed -Ulcer Cleansing Rinsed/ Rinsed/ Rinsed/ Irrigated with Irrigated with Irrigated with Saline Saline Saline -Foul Odor after Cleansing No No No -Bioengineered Tissue Yes Yes Yes -Type of bioengineered Tissue [id number] -Expiration Date 04/23/20 04/23/20 04/23/20 -Product Lot Number [id number] -Percent Used 100 100 100 -Saline Lot Number [id number] -Topical Lidocaine (%) 4 4 -Bleeding Controlled with Pressure Pressure Pressure SURGIFOAM -Treatment Response Procedure Procedure Procedure Tolerated Well Tolerated Well Tolerated Well Pain Scale: 0-10 Numeric Is Patient Pain Free? Yes Yes Yes 01/31/18 16:57 Wound Center Nurse 2 #9 Lower Lumbar- Midline -Time 16:57 -Correct Patient Yes -Correct Side, Site, Position Yes -Correct Procedure Yes -Procedure Performed Yes -Type of Procedure Debridement -Clinical Debridement Subcutaneous -Post Debridement Size (cm) - Length 14.0 -Post Debridement Size (cm) - Width 4.5 -Post Debridement Size (cm) - Depth 0.5 -Total Square Cm 63.00 -Wound/Ulcer Outcome Not Healed -Ulcer Cleansing Rinsed/ Irrigated with Saline -Foul Odor after Cleansing No -Bioengineered Tissue Yes -Type of bioengineered Tissue [id number] -Expiration Date -Product Lot Number -Percent Used -Saline Lot Number -Topical Lidocaine (%) 4 -Bleeding Controlled with Pressure -Treatment Response Procedure Tolerated Well Pain Scale: 0-10 Numeric Is Patient Pain Free? Yes Wound debrided: lower lumbar midline Laterality: Not Applicable Type of Debridement: Excisional debridement Anesthesia Used: 4% Lidocaine Solution Depth: Down to and including healthy tissue, in the subcutaneous layer Percentage of wound debrided: 100 Instrument Used: 5mm curette Tissue Removed: yellow slough, devitalized tissue Severity: Fat Layer Exposed Amount of bleeding with debridement: Moderate Bleeding Controlled with: Compression and gauze, Gel Foam Patient tolerated procedure well Assessment/Plan Active Problems (Last Reviewed 11/19/17 @ 16:27 by Micky Mauro MD) Nonhealing surgical wound (Chronic) Open wound of lower back (Chronic) Cellulitis (Chronic) Assessment: chronic surgical wound dehiscence lumbar with complex abscess and recent surgical debridement. malnutrition. other multiple comorbidities. edema bilateral lower extremities. Bleeding site from within wound controlled with combination of silver nitrate and Surgifoam. Bleeding appears to be controlled. venous insufficiency. immunocompromised status. Plan: Debridement done as documented above. Procedure was well-tolerated. Fourth application of Puraply was done today using 100% of product. Purapply was was applied to the periphery of the wound. Covered with wound veil secured with Steri-Strips. Snap-vac applied over the top of this and will be changed on Saturday or Saturday. If it stops working, would use gauze, ABDs with changes daily leaving the wound veil in place. Wound culture taken today and if negative will call to speak with surgery regarding closure. Continue increased protein intake. F/U in [address] Wick. This note was generated with [employer]ular dictation software. It may contain incorrect words, spelling, and punctuation that were not noted in checking the note before signing.
== END 2018-02-02 23:59 ==
LOC: WC 16:15
PROVIDERS: Family Provider Family Medicine; PCP Family Medicine; Visit Provider Family Medicine
DX: T81.4XXA Infection following a procedure, initial encounter (principal); L03.312 Cellulitis of back [any part except buttock and flank]; T81.30XA Disruption of wound, unspecified, initial encounter; Y83.8 Other surgical procedures as the cause of abnormal reaction of the patient, or of later complication, without mention of misadventure at the time of the procedure; I87.2 Venous insufficiency (chronic) (peripheral); B99.8 Other infectious disease; D63.1 Anemia in chronic kidney disease; N18.3 Chronic kidney disease, stage 3 (moderate)
CPT/HCPCS: 15271; 15272; 36415; 80069; 85014; 85018; 85025; 87070; 87075; 87077; 87186; 87205; 96372; 97605; 97608; J0885; Q4172

== ENCOUNTER → 2018-02-14 09:44 | Outpatient (CLI) | payer MEDICARE, OTHER, SELFPAY ==
[2015-10-31 10:00] VITALS: BMI 34.9
[2018-02-14 10:30] LABS: Absolute Lymphocyte Count 1.46 X10^3/ul (0.83-4.51); Absolute Neutrophil Count 2.7 X10^3/uL (2.0-7.7); Basophil# 0.03 X10^3/uL; Basophil% 0.5 % (0-1); Eosinophil# 0.53 X10^3/uL; Eosinophils% 9.5 % (0-5); Hematocrit 32.5 % (40-54); Hemoglobin 10.1 g/dl (13.0-16.5); Lymphocyte # 1.46 X10^3/ul (4.0); Lymphocyte % 26.2 % (19-41); Mean Corp Hgb Conc 31.1 g/gl (32-36); Mean Corpuscular Hgb 33.1 pg (27.0-32.0); Mean Corpuscular Volume 106.6 fL (80-94); Mean Platelet Vol. 9.6 fl (6.2-12.0); Monocyte# 0.81 X10^3/uL; Monocyte% 14.5 % (0-10); Neutrophil # 2.73 X10^3/uL (2.7-7.7); Neutrophil % 49.1 % (47-70); Platelet Count 297 K/mm3 (150-450); RBC Distribution Width CV 14.8 % (11.6-14.6); RBC Distribution Width SD 55.8 fl (35.1-43.9); Red Blood Count 3.05 M/mm3 (4.6-6.2); White Blood Count 5.6 K/mm3 (4.4-11.0)
[2018-02-14 10:31] LABS: POSITIVE COUNT NO; POSITIVE DIFFERENTIAL NO; POSITIVE MORPHOLOGY NO
[2018-02-14 10:35] VITALS: BP 103/55; PULSE 81; RESP 18; TEMP 36.8; O2SAT 100; BMI 26.9
[2018-02-14 11:05] LABS: Albumin, Serum 2.7 g/dL (3.2-5.0); BUN 36 mg/dL (7-18); Calcium,Total 8.4 mg/dL (8.5-10.1); Chloride 107 mmol/L (98-107); EST Glomerular Filtration Rate 35 mL/min (>60); Est Glom Filt Rate - Afr Amer 42 mL/min (>60); Estimated Creatinine Clearance 31.83 ml/min; Glucose 109 mg/dL (74-106); Phosphorus 3.6 mg/dL (2.5-4.9); Potassium 3.5 mmol/L (3.5-5.1); Sodium Level 139 mmol/L (136-145)
[2018-02-14 11:08] LABS: Ferritin 168 ng/mL (26-388); Iron 65 ug/dL (65-175); Iron Binding Capacity,Total 221 ug/dL (250-450); PERCENT IRON SATURATION 29.4 % (15.0-55.0)
== END ==
PROVIDERS: Family Provider Family Medicine; PCP Family Medicine; Referring Provider Internal Medicine Nephrology; Visit Provider Internal Medicine Nephrology
DX: N18.3 Chronic kidney disease, stage 3 (moderate) (principal); D63.1 Anemia in chronic kidney disease; T81.30XA Disruption of wound, unspecified, initial encounter; L03.312 Cellulitis of back [any part except buttock and flank]; Y83.8 Other surgical procedures as the cause of abnormal reaction of the patient, or of later complication, without mention of misadventure at the time of the procedure; I87.2 Venous insufficiency (chronic) (peripheral); B99.8 Other infectious disease
CPT/HCPCS: 15271; 36415; 80069; 82728; 83540; 83550; 85025; 87070; 87075; 87077; 87205; 96372; J0885; Q4172

== ENCOUNTER → 2018-02-20 12:10 | Outpatient (CLI) | payer MEDICARE, OTHER, SELFPAY ==
[2015-10-31 10:00] VITALS: BMI 34.9
[2018-02-20 13:29] LABS: Erythrocyte Sedimentation Rate 65 mm/hr (0-20)
== END ==
PROVIDERS: Family Provider Family Medicine; PCP Family Medicine; Referring Provider Family Medicine; Visit Provider Family Medicine
DX: T81.89XA Other complications of procedures, not elsewhere classified, initial encounter (principal); L98.499 Non-pressure chronic ulcer of skin of other sites with unspecified severity
CPT/HCPCS: 36415; 85652; 86140

== ENCOUNTER → 2018-02-21 19:09 | Outpatient (CLI) | payer MEDICARE, OTHER, SELFPAY ==
[2015-10-31 10:00] VITALS: BMI 34.9
== END ==
PROVIDERS: Family Provider Family Medicine; PCP Family Medicine; Referring Provider Family Medicine; Visit Provider Family Medicine
DX: T81.89XA Other complications of procedures, not elsewhere classified, initial encounter (principal); L98.498 Non-pressure chronic ulcer of skin of other sites with other specified severity; T81.30XA Disruption of wound, unspecified, initial encounter; L03.312 Cellulitis of back [any part except buttock and flank]; Y83.8 Other surgical procedures as the cause of abnormal reaction of the patient, or of later complication, without mention of misadventure at the time of the procedure; I87.2 Venous insufficiency (chronic) (peripheral); B99.8 Other infectious disease; N18.3 Chronic kidney disease, stage 3 (moderate)
CPT/HCPCS: 15271; 87070; 87077; 87186; 87205; Q4172

== ENCOUNTER → 2018-02-24 13:16 | Outpatient (CLI) | payer MEDICARE, OTHER, SELFPAY ==
[2015-10-31 10:00] VITALS: BMI 34.9
--- NOTE | 2018-02-24 13:19 | CT_ITS ---
STUDY: CT LUMBAR SPINE WITHOUT CONTRAST REASON FOR EXAM: Male, 72 years old. Nonhealing postop lumbar ulcer RADIATION DOSAGE (If Supplied By Facility): CTDIvol = ( 26.08 ) mGy, DLP = ( 783.63 ) mGycm TECHNIQUE: The patient was scanned in a multi detector CT scanner. High resolution transaxial imaging was performed. Images were obtained from L1 to mid sacrum. Sagittal and coronal images were reconstructed. Individualized dose optimization techniques were used for this CT. COMPARISON: Previous images of 11/22/2016 are not available for comparison. FINDINGS: Normal lumbar lordosis. There is no substantial scoliosis. There are destructive/sclerotic changes of L5. There is a slight decrease in vertical height of L3 with a mild mixed sclerotic pattern of such. There is faint sclerosis of the L1 body also. L1-2: There is endplate spondylosis at the L1-2 level. Disc spacing is preserved. There are bilateral hypertrophic degenerative facet changes. There is mild central canal stenosis caused by bulging annulus and degenerative facet changes. There is no foraminal narrowing. L2-3: There is mild endplate spondylosis. There are mild bilateral hypertrophic degenerative facet changes. There is moderately severe central canal stenosis caused by bulging annulus and ligamentum flavum hypertrophy. L3-4: There is endplate spondylosis. There are mild bilateral hypertrophic degenerative facet changes. There is severe central canal stenosis caused by degenerative facet changes, bulging annulus, and ligamentum flavum hypertrophy. Disc spacing is preserved. L4-5: Disc spacing is preserved. There are lytic changes with sclerotic reaction of the L5 body. There are mild bilateral degenerative facet changes. There are status post left L4 laminectomy changes. There is moderate central canal stenosis. There is no foraminal narrowing. L5-S1: There are mild bilateral degenerative facet changes. Disc spacing is preserved. There is no central canal stenosis or foraminal narrowing. There is a small sclerotic focus of the right iliac wing consistent with metastatic lesion. There is increased soft tissue density of the posterior paraspinous soft tissues with changes consistent with postoperative change. There is no evidence of soft tissue gas or abnormal fluid collection. CT/Spine Lumbar without Contrast IMPRESSION: Findings as described above. The previous CT of November 22, 2016 was not available for comparison. Electronically Signed: Luca Stratton MD at 17:08 EDT , Service support ,
[2018-02-24 17:04] LABS: ALB/GLOB Ratio 0.6 RATIO (0.9-2.4); AST(SGOT) 39 U/L (15-37); Alanine Aminotransfer ALT/SGPT 18 U/L (16-61); Alkaline Phosphatase 280 U/L (45-117); Anion Gap 12 (5-15); BUN 35 mg/dL (7-18); BUN/Creat Ratio 24.6 RATIO (10-20); Calcium,Total 8.6 mg/dL (8.5-10.1); Chloride 106 mmol/L (98-107); Creatinine, Serum 1.42 mg/dL (0.70-1.30); EST Glomerular Filtration Rate 52 mL/min (>60); Est Glom Filt Rate - Afr Amer 63 mL/min (>60); Globulin 5.3 g/dL (2.2-4.2); Glucose 95 mg/dL (74-106); Potassium 3.9 mmol/L (3.5-5.1); Protein, Total 8.3 g/dL (6.4-8.2); Sodium Level 142 mmol/L (136-145)
== END ==
PROVIDERS: Family Provider Family Medicine; PCP Family Medicine; Referring Provider Family Medicine; Visit Provider Family Medicine
DX: T81.89XA Other complications of procedures, not elsewhere classified, initial encounter (principal); L98.499 Non-pressure chronic ulcer of skin of other sites with unspecified severity; N18.3 Chronic kidney disease, stage 3 (moderate); R53.83 Other fatigue
CPT/HCPCS: 36415; 72131; 80053

== ENCOUNTER → 2018-02-27 13:27 | Outpatient (CLI) | payer MEDICARE, OTHER, SELFPAY ==
[2015-10-31 10:00] VITALS: BMI 34.9
[2018-02-27 15:50] LABS: Absolute Lymphocyte Count 1.32 X10^3/ul (0.83-4.51); Absolute Neutrophil Count 2.5 X10^3/uL (2.0-7.7); Basophil# 0.03 X10^3/uL; Basophil% 0.6 % (0-1); Eosinophil# 0.38 X10^3/uL; Eosinophils% 7.5 % (0-5); Hematocrit 31.9 % (40-54); Hemoglobin 9.6 g/dl (13.0-16.5); Lymphocyte # 1.32 X10^3/ul (4.0); Mean Corp Hgb Conc 30.1 g/gl (32-36); Mean Corpuscular Hgb 33.1 pg (27.0-32.0); Mean Platelet Vol. 11.2 fl (6.2-12.0); Monocyte# 0.88 X10^3/uL; Monocyte% 17.3 % (0-10); Neutrophil # 2.47 X10^3/uL (2.7-7.7); Neutrophil % 48.6 % (47-70); Platelet Count 301 K/mm3 (150-450); RBC Distribution Width CV 15.2 % (11.6-14.6); RBC Distribution Width SD 59.4 fl (35.1-43.9); White Blood Count 5.1 K/mm3 (4.4-11.0)
[2018-02-27 15:56] LABS: POSITIVE COUNT NO; POSITIVE DIFFERENTIAL NO; POSITIVE MORPHOLOGY NO
[2018-02-27 16:06] LABS: PSA,Total - Annual Screen 0.42 ng/mL (0.00-4.00)
[2018-03-03 13:08] LABS: Beta-2-Microglobulin, S 10.6 mg/L (0.6-2.4)
[2018-03-03 16:09] LABS: PROEL- A/G Ratio 0.8 (0.7-1.7); PROEL- Alpha-1 Globulin 0.3 g/dL (0.0-0.4); PROEL- Alpha-2 Globulin 0.9 g/dL (0.4-1.0); PROEL- Beta Globulin 1.1 g/dL (0.7-1.3); PROEL- Gamma Globulin 1.7 g/dL (0.4-1.8); PROEL- Globulin, Total 3.9 g/dL (2.2-3.9); PROEL- TOTAL PROTEIN 6.9 g/dL (6.0-8.5)
[2018-03-04 16:10] LABS: PROELU- Albumin, Urine 22.6 % (.); PROELU- Alpha-1-Globulin,Ur 2.6 % (.); PROELU- Alpha-2-Globulin,Ur 11.7 % (.); PROELU- Beta Globulin, Ur 27.3 % (.); PROELU- Gamma Globulin, Ur 35.9 % (.); Total Protein, Ur 14.9 mg/dL (Not Estab.)
== END ==
PROVIDERS: Family Provider Family Medicine; PCP Family Medicine; Visit Provider Family Medicine
DX: C79.51 Secondary malignant neoplasm of bone (principal); D64.9 Anemia, unspecified; Z85.72 Personal history of non-Hodgkin lymphomas; Z12.5 Encounter for screening for malignant neoplasm of prostate
CPT/HCPCS: 36415; 82232; 84153; 84165; 84166; 85025; G0103

== ENCOUNTER → 2018-02-28 10:28 | Outpatient (CLI) | payer MEDICARE, OTHER, SELFPAY ==
[2015-10-31 10:00] VITALS: BMI 34.9
[2018-02-28 10:54] LABS: Hemoglobin 9.9 g/dl (13.0-16.5)
[2018-02-28 11:14] VITALS: BP 117/64; PULSE 69; RESP 16; TEMP 35.9; O2SAT 96; BMI 27.5
== END ==
PROVIDERS: Family Provider Family Medicine; PCP Family Medicine; Referring Provider Internal Medicine Nephrology; Visit Provider Internal Medicine Nephrology
DX: N18.3 Chronic kidney disease, stage 3 (moderate) (principal); D63.1 Anemia in chronic kidney disease; T81.30XA Disruption of wound, unspecified, initial encounter; T81.49XA Infection following a procedure, other surgical site, initial encounter; Y83.8 Other surgical procedures as the cause of abnormal reaction of the patient, or of later complication, without mention of misadventure at the time of the procedure; L03.312 Cellulitis of back [any part except buttock and flank]; I87.2 Venous insufficiency (chronic) (peripheral); B99.8 Other infectious disease
CPT/HCPCS: 15271; 15272; 36415; 85014; 85018; 96372; J0885; Q4172

== ENCOUNTER 2018-02-28 13:00 | Outpatient (RCR) | payer MEDICARE, OTHER, SELFPAY ==
[2015-10-31 10:00] VITALS: BMI 34.9
[2018-02-03 00:39] VITALS: BP 119/64; PULSE 86; RESP 18; TEMP 36.4; BMI 56.5
[2018-02-04 10:03] VITALS: BP 142/70; PULSE 71; RESP 16; TEMP 36.1; BMI 56.5
[2018-02-07 14:14] VITALS: BP 113/61; PULSE 77; RESP 16; TEMP 36.8; BMI 56.5
--- NOTE | 2018-02-07 17:36 | PCM.WC.PN ---
(1) Nonhealing surgical wound Status: Chronic Current Visit: Yes Qualifiers: Encounter type: subsequent encounter Code(s): T81.89XA - Other complications of procedures, not elsewhere classified, initial encounter (2) Open wound of lower back Status: Chronic Current Visit: Yes Code(s): S31.000A - Unspecified open wound of lower back and pelvis without penetration into retroperitoneum, initial encounter (3) Cellulitis Status: Chronic Current Visit: Yes Qualifiers: Site of cellulitis: trunk Site of cellulitis of trunk: back Qualified Code(s): L03.312 - Cellulitis of back [any part except buttock] Code(s): L03.90 - Cellulitis, unspecified (4) Chronic kidney disease Status: Chronic Current Visit: Yes Qualifiers: Chronic kidney disease stage: stage 3 (moderate) Qualified Code(s): N18.3 - Chronic kidney disease, stage 3 (moderate) Code(s): N18.9 - Chronic kidney disease, unspecified Type of Wound Chief Complaint: Nonhealing surgical wound of lower back History of Wound: Mr. Marshall is a 72-yo who has been seen here at the wound center for a nonhealing surgical wound of his lower back s/p surgical debridement for an abscess s/p lumbar spine surgery. His original surgery on his lower back was approximately 18 months ago and he has had multiple complications since that time. He underwent surgical debridement on 03/04/[address] Davila at [facility] in [place] and was discharged with a wound vac for healing by secondary intention with possible muscle flap closure in the future. He followed up with his surgeon on 04/18/17 for further evaluation and recommendations and they plan to close the wound with a muscle flap but he continues to develop infections. He is also being seen by Infectious Disease as needed. Progress of Wound: Cuong is here for follow-up of his nonhealing surgical wound of his lower back. He reports having some increased pain at times but denies any odor. He had problems with snap vac leaking. Has been using gauze and ABDs. Wound cultures were positive. He has not started antibiotics and is feeling down and depressed and is considering discontinuing treatments. He has no new complaints at this time. He has had 3 applications of Purapply. - Physical Exam Vital Signs Temp Pulse Resp BP 98.2 F 77 16 113/61 10/05/18 14:14 02/07/18 14:14 02/07/18 14:14 02/07/18 14:14 General: Alert, Oriented x3, Cooperative, No apparent distress HEENT: Atraumatic, Normocephalic Oral: Moist Mucosa Skin: Ulcer/ Wound Wound Measurements and Assessment WC - Nurse 1 - General Ulcer Measurement Start: 02/04/18 10:02 Freq: Status: Active Protocol: Activity Type Activity Date Activity User E-Sign Co-Sign Detail Recorded Client Recorded Date Recorded By Document 02/07/18 14:14 CS [id number] 02/07/18 14:19 CS 02/07/18 14:14 Wound Center Nurse 1 [Ulcer Assessment] #9 Lower Lumbar- Midline -Combined with other wound No -Current Size (cm) - Length 14.2 -Current Size (cm) - Width 4.6 -Current Size (cm) - Depth 1.4 -Total Square Cm 65.32 -Date of Last Picture (Recall this 02/07/18 field) -Photo Taken Yes -Epithelialization Small 1-33% -Tunneling No -Undermining/Tunneling No -Circular Undermining No -Wound Margin Distinct, Outline Attached -Granulation Amt Medium (34-66%) -Granulation Quality Pale [place] -Slough/Fibrin Yes -Necrosis Amt None Present (0 %) -Necrotic Tissue Type Adherent Slough -Structure Exposed None/Limited to Skin Breakdown -Texture (Uma-wound Skin Appearance) Scarring -Moisture (Uma-wound Skin Appearance No Abnormality ) Assessed -Color (Uma-wound Skin Appearance) No Abnormality Assessed -Temperature (Uma-wound Skin No Abnormality Appearance) (Pt Warm) -Tenderness on Palpation (Uma-wound Yes Skin Appearance) -Ulcer Cleansing Wound Cleanser -Foul Odor after Cleansing No -Anesthetic Used 4% Lidocaine Solution [Edema Assessment] -Lower Limb Edema Present NA WC - Nurse 2 - General Ulcer CM Notes Start: 02/04/18 10:02 Freq: Status: Active Protocol: Activity Type Activity Date Activity User E-Sign Co-Sign Detail Recorded Client Recorded Date Recorded By Document 02/07/18 14:50 TM [id number] 02/07/18 14:57 TM 02/07/18 14:50 Wound Center Nurse 2 [Procedure/Treatment] #9 Lower Lumbar- Midline -Time 14:50 -Correct Patient Yes -Correct Side, Site, Position Yes -Correct Procedure Yes -Procedure Performed Yes -Type of Procedure Debridement -Clinical Debridement Subcutaneous -Post Debridement Size (cm) - Length 13.8 -Post Debridement Size (cm) - Width 4.4 -Post Debridement Size (cm) - Depth 0.5 -Total Square Cm 60.72 -Wound/Ulcer Outcome Not Healed -Ulcer Cleansing Rinsed/ Irrigated with Saline -Foul Odor after Cleansing No -Bioengineered Tissue Yes -Type of bioengineered Tissue [id number] -Expiration Date 07/25/20 -Product Lot Number [id number] -Percent Used 100 -Saline Lot Number [id number] -Topical Lidocaine (%) 4 -Bleeding Controlled with Pressure -Treatment Response Procedure Tolerated Well [See Physician Procedure note for Specifics] Pain Scale: 0-10 Numeric [Pain] -Is Patient Pain Free? Yes Psych/Mental Status: Normal Affect, Appropriate Debridement Note Post-Debridement Measurements/Treatment WC - Nurse 2 - General Ulcer CM Notes Start: 02/04/18 10:02 Freq: Status: Active Protocol: Activity Type Activity Date Activity User E-Sign Co-Sign Detail Recorded Client Recorded Date Recorded By Document 02/07/18 14:50 TM [id number] 02/07/18 14:57 TM 02/07/18 14:50 Wound Center Nurse 2 #9 Lower Lumbar- Midline -Time 14:50 -Correct Patient Yes -Correct Side, Site, Position Yes -Correct Procedure Yes -Procedure Performed Yes -Type of Procedure Debridement -Clinical Debridement Subcutaneous -Post Debridement Size (cm) - Length 13.8 -Post Debridement Size (cm) - Width 4.4 -Post Debridement Size (cm) - Depth 0.5 -Total Square Cm 60.72 -Wound/Ulcer Outcome Not Healed -Ulcer Cleansing Rinsed/ Irrigated with Saline -Foul Odor after Cleansing No -Bioengineered Tissue Yes -Type of bioengineered Tissue [id number] -Expiration Date 07/25/20 -Product Lot Number [id number] -Percent Used 100 -Saline Lot Number [id number] -Topical Lidocaine (%) 4 -Bleeding Controlled with Pressure -Treatment Response Procedure Tolerated Well Pain Scale: 0-10 Numeric Is Patient Pain Free? Yes Wound debrided: lower lumbar midline Laterality: Not Applicable Type of Debridement: Excisional debridement Anesthesia Used: 4% Lidocaine Solution Depth: Down to and including healthy tissue, in the subcutaneous layer Percentage of wound debrided: 100 Instrument Used: 5mm curette Tissue Removed: yellow slough, devitalized tissue Severity: Fat Layer Exposed Amount of bleeding with debridement: Mild Bleeding Controlled with: Compression and gauze Patient tolerated procedure well Assessment/Plan Active Problems (Last Reviewed 11/19/17 @ 16:27 by Micky Mauro MD) Nonhealing surgical wound (Chronic) Open wound of lower back (Chronic) Cellulitis (Chronic) Chronic kidney disease (Chronic) Assessment: chronic surgical wound dehiscence lumbar with complex abscess and recent surgical debridement. malnutrition. other multiple comorbidities. edema bilateral lower extremities. Bleeding site from within wound controlled with combination of silver nitrate and Surgifoam. Bleeding appears to be controlled. venous insufficiency. immunocompromised status. Plan: Debridement done as documented above. Procedure was well-tolerated. Fifth application of Puraply was done today using 100% of product. Puraply was applied to the periphery of the wound and [place] applied to center of wound. Covered with wound veil. Snap-vac applied over the top of this and will be changed on Saturday or Saturday. Jevon from [facility] offered some suggestions to help secure the drape in place and eliminate leaking. If it stops working, would use gauze, ABDs with changes daily leaving the wound veil in place. Discussed palliative treatments and encouraged discussion with his PCP. Continue increased protein intake. F/U in [address] Wick.
--- NOTE | 2018-02-07 17:41 | PN.PCM_ITS ---
(1) Nonhealing surgical wound Status: Chronic Current Visit: Yes Qualifiers: Encounter type: subsequent encounter Code(s): T81.89XA - Other complications of procedures, not elsewhere classified, initial encounter (2) Open wound of lower back Status: Chronic Current Visit: Yes Code(s): S31.000A - Unspecified open wound of lower back and pelvis without penetration into retroperitoneum, initial encounter (3) Cellulitis Status: Chronic Current Visit: Yes Qualifiers: Site of cellulitis: trunk Site of cellulitis of trunk: back Qualified Code(s): L03.312 - Cellulitis of back [any part except buttock] Code(s): L03.90 - Cellulitis, unspecified (4) Chronic kidney disease Status: Chronic Current Visit: Yes Qualifiers: Chronic kidney disease stage: stage 3 (moderate) Qualified Code(s): N18.3 - Chronic kidney disease, stage 3 (moderate) Code(s): N18.9 - Chronic kidney disease, unspecified Type of Wound Chief Complaint: Nonhealing surgical wound of lower back History of Wound: Mr. Marshall is a 72-yo who has been seen here at the wound center for a nonhealing surgical wound of his lower back s/p surgical debridement for an abscess s/p lumbar spine surgery. His original surgery on his lower back was approximately 18 months ago and he has had multiple complications since that time. He underwent surgical debridement on 03/04/[address] Davila at [facility] in [place] and was discharged with a wound vac for healing by secondary intention with possible muscle flap closure in the future. He followed up with his surgeon on 04/18/17 for further evaluation and recommendations and they plan to close the wound with a muscle flap but he continues to develop infections. He is also being seen by Infectious Disease as needed. Progress of Wound: Cuong is here for follow-up of his nonhealing surgical wound of his lower back. He reports having some increased pain at times but denies any odor. He had problems with snap vac leaking. Has been using gauze and ABDs. Wound cultures were positive. He has not started antibiotics and is feeling down and depressed and is considering discontinuing treatments. He has no new complaints at this time. He has had 3 applications of Purapply. - Physical Exam Vital Signs Temp Pulse Resp BP 98.2 F 77 16 113/61 10/05/18 14:14 02/07/18 14:14 02/07/18 14:14 02/07/18 14:14 General: Alert, Oriented x3, Cooperative, No apparent distress HEENT: Atraumatic, Normocephalic Oral: Moist Mucosa Skin: Ulcer/ Wound Wound Measurements and Assessment WC - Nurse 1 - General Ulcer Measurement Start: 02/04/18 10:02 Freq: Status: Active Protocol: Activity Type Activity Date Activity User E-Sign Co-Sign Detail Recorded Client Recorded Date Recorded By Document 02/07/18 14:14 CS [id number] 02/07/18 14:19 CS 02/07/18 14:14 Wound Center Nurse 1 [Ulcer Assessment] #9 Lower Lumbar- Midline -Combined with other wound No -Current Size (cm) - Length 14.2 -Current Size (cm) - Width 4.6 -Current Size (cm) - Depth 1.4 -Total Square Cm 65.32 -Date of Last Picture (Recall this 02/07/18 field) -Photo Taken Yes -Epithelialization Small 1-33% -Tunneling No -Undermining/Tunneling No -Circular Undermining No -Wound Margin Distinct, Outline Attached -Granulation Amt Medium (34-66%) -Granulation Quality Pale [place] -Slough/Fibrin Yes -Necrosis Amt None Present (0 %) -Necrotic Tissue Type Adherent Slough -Structure Exposed None/Limited to Skin Breakdown -Texture (Uma-wound Skin Appearance) Scarring -Moisture (Uma-wound Skin Appearance No Abnormality ) Assessed -Color (Uma-wound Skin Appearance) No Abnormality Assessed -Temperature (Uma-wound Skin No Abnormality Appearance) (Pt Warm) -Tenderness on Palpation (Uma-wound Yes Skin Appearance) -Ulcer Cleansing Wound Cleanser -Foul Odor after Cleansing No -Anesthetic Used 4% Lidocaine Solution [Edema Assessment] -Lower Limb Edema Present NA WC - Nurse 2 - General Ulcer CM Notes Start: 02/04/18 10:02 Freq: Status: Active Protocol: Activity Type Activity Date Activity User E-Sign Co-Sign Detail Recorded Client Recorded Date Recorded By Document 02/07/18 14:50 TM [id number] 02/07/18 14:57 TM 02/07/18 14:50 Wound Center Nurse 2 [Procedure/Treatment] #9 Lower Lumbar- Midline -Time 14:50 -Correct Patient Yes -Correct Side, Site, Position Yes -Correct Procedure Yes -Procedure Performed Yes -Type of Procedure Debridement -Clinical Debridement Subcutaneous -Post Debridement Size (cm) - Length 13.8 -Post Debridement Size (cm) - Width 4.4 -Post Debridement Size (cm) - Depth 0.5 -Total Square Cm 60.72 -Wound/Ulcer Outcome Not Healed -Ulcer Cleansing Rinsed/ Irrigated with Saline -Foul Odor after Cleansing No -Bioengineered Tissue Yes -Type of bioengineered Tissue [id number] -Expiration Date 07/25/20 -Product Lot Number [id number] -Percent Used 100 -Saline Lot Number [id number] -Topical Lidocaine (%) 4 -Bleeding Controlled with Pressure -Treatment Response Procedure Tolerated Well [See Physician Procedure note for Specifics] Pain Scale: 0-10 Numeric [Pain] -Is Patient Pain Free? Yes Psych/Mental Status: Normal Affect, Appropriate Debridement Note Post-Debridement Measurements/Treatment WC - Nurse 2 - General Ulcer CM Notes Start: 02/04/18 10:02 Freq: Status: Active Protocol: Activity Type Activity Date Activity User E-Sign Co-Sign Detail Recorded Client Recorded Date Recorded By Document 02/07/18 14:50 TM [id number] 02/07/18 14:57 TM 02/07/18 14:50 Wound Center Nurse 2 #9 Lower Lumbar- Midline -Time 14:50 -Correct Patient Yes -Correct Side, Site, Position Yes -Correct Procedure Yes -Procedure Performed Yes -Type of Procedure Debridement -Clinical Debridement Subcutaneous -Post Debridement Size (cm) - Length 13.8 -Post Debridement Size (cm) - Width 4.4 -Post Debridement Size (cm) - Depth 0.5 -Total Square Cm 60.72 -Wound/Ulcer Outcome Not Healed -Ulcer Cleansing Rinsed/ Irrigated with Saline -Foul Odor after Cleansing No -Bioengineered Tissue Yes -Type of bioengineered Tissue [id number] -Expiration Date 07/25/20 -Product Lot Number [id number] -Percent Used 100 -Saline Lot Number [id number] -Topical Lidocaine (%) 4 -Bleeding Controlled with Pressure -Treatment Response Procedure Tolerated Well Pain Scale: 0-10 Numeric Is Patient Pain Free? Yes Wound debrided: lower lumbar midline Laterality: Not Applicable Type of Debridement: Excisional debridement Anesthesia Used: 4% Lidocaine Solution Depth: Down to and including healthy tissue, in the subcutaneous layer Percentage of wound debrided: 100 Instrument Used: 5mm curette Tissue Removed: yellow slough, devitalized tissue Severity: Fat Layer Exposed Amount of bleeding with debridement: Mild Bleeding Controlled with: Compression and gauze Patient tolerated procedure well Assessment/Plan Active Problems (Last Reviewed 11/19/17 @ 16:27 by Micky Mauro MD) Nonhealing surgical wound (Chronic) Open wound of lower back (Chronic) Cellulitis (Chronic) Chronic kidney disease (Chronic) Assessment: chronic surgical wound dehiscence lumbar with complex abscess and recent surgical debridement. malnutrition. other multiple comorbidities. edema bilateral lower extremities. Bleeding site from within wound controlled with combination of silver nitrate and Surgifoam. Bleeding appears to be controlled. venous insufficiency. immunocompromised status. Plan: Debridement done as documented above. Procedure was well-tolerated. Fifth application of Puraply was done today using 100% of product. Puraply was applied to the periphery of the wound and Guera applied to center of wound. Covered with wound veil. Snap-vac applied over the top of this and will be changed on Saturday or Saturday. Jevon from [facility] offered some suggestions to help secure the drape in place and eliminate leaking. If it stops working, would use gauze, ABDs with changes daily leaving the wound veil in place. Discussed palliative treatments and encouraged discussion with his PCP. Continue increased protein intake. F/U in [address] Wick.
[2018-02-11 11:08] VITALS: BP 117/86; PULSE 68; RESP 18; TEMP 36.4; BMI 56.5
[2018-02-14 12:11] VITALS: BP 103/55; RESP 16; TEMP 36.2; BMI 56.5
--- NOTE | 2018-02-14 14:14 | PCM.WC.PN ---
(1) Nonhealing surgical wound Status: Chronic Current Visit: Yes Qualifiers: Encounter type: subsequent encounter Code(s): T81.89XA - Other complications of procedures, not elsewhere classified, initial encounter (2) Open wound of lower back Status: Chronic Current Visit: Yes Code(s): S31.000A - Unspecified open wound of lower back and pelvis without penetration into retroperitoneum, initial encounter (3) Cellulitis Status: Chronic Current Visit: Yes Qualifiers: Site of cellulitis: trunk Site of cellulitis of trunk: back Qualified Code(s): L03.312 - Cellulitis of back [any part except buttock] Code(s): L03.90 - Cellulitis, unspecified (4) Chronic kidney disease Status: Chronic Current Visit: Yes Qualifiers: Chronic kidney disease stage: stage 3 (moderate) Qualified Code(s): N18.3 - Chronic kidney disease, stage 3 (moderate) Code(s): N18.9 - Chronic kidney disease, unspecified Type of Wound Chief Complaint: Nonhealing surgical wound of lower back History of Wound: Mr. Marshall is a 72-yo who has been seen here at the wound center for a nonhealing surgical wound of his lower back s/p surgical debridement for an abscess s/p lumbar spine surgery. His original surgery on his lower back was approximately 18 months ago and he has had multiple complications since that time. He underwent surgical debridement on 03/04/[address] Davila at [facility] in [place] and was discharged with a wound vac for healing by secondary intention with possible muscle flap closure in the future. He followed up with his surgeon on 04/18/17 for further evaluation and recommendations and they plan to close the wound with a muscle flap but he continues to develop infections. He is also being seen by Infectious Disease as needed. Progress of Wound: Cuong is here for follow-up of his nonhealing surgical wound of his lower back. He reports having a significant amount of increased pain in the last week but denies any odor and reports less drainage. He states that it feels like it did when he had an abscess last year. He had problems with snap vac leaking again. Has been using gauze and ABDs. He has 2 days left of antibiotics. He has had 5 applications of Purapply. - Physical Exam Vital Signs Temp Pulse Resp BP 97.1 F L 68 16 103/55 L 02/14/18 12:11 02/11/18 11:08 02/14/18 12:11 02/14/18 12:11 General: Alert, Oriented x3, Cooperative, No apparent distress HEENT: Atraumatic, Normocephalic Oral: Moist Mucosa Skin: Ulcer/ Wound Wound Measurements and Assessment - Nurse 1 - General Ulcer Measurement Start: 02/04/18 10:02 Freq: Status: Active Protocol: Activity Type Activity Date Activity User E-Sign Co-Sign Detail Recorded Client Recorded Date Recorded By Document 02/14/18 12:11 [facility] [id number] 02/14/18 12:22 [facility] 02/14/18 12:11 Wound Center Nurse 1 [Ulcer Assessment] #9 Lower Lumbar- Midline -Combined with other wound No -Current Size (cm) - Length 14.7 -Current Size (cm) - Width 5.2 -Current Size (cm) - Depth 1.1 -Total Square Cm 76.44 -Photo Taken No -Epithelialization None Present -Tunneling No -Undermining/Tunneling No -Circular Undermining No -Exudate Amt Small (1-33%) -Exudate Type Sanguineous -Wound Margin Distinct, Outline Attached -Granulation Amt Medium (34-66%) -Granulation Quality Pale Red -Slough/Fibrin Yes -Necrosis Amt Medium (34-66%) -Necrotic Tissue Type Adherent Slough -Texture (Uma-wound Skin Appearance) Scarring -Moisture (Uma-wound Skin Appearance Dry/Scaly ) -Color (Uma-wound Skin Appearance) Assessed -Temperature (Uma-wound Skin No Abnormality Appearance) (Pt Warm) -Tenderness on Palpation (Uma-wound No Skin Appearance) -Ulcer Cleansing Wound Cleanser -Foul Odor after Cleansing No -Anesthetic Used 4% Lidocaine Solution - Nurse 2 - General Ulcer CM Notes Start: 02/04/18 10:02 Freq: Status: Active Protocol: Activity Type Activity Date Activity User E-Sign Co-Sign Detail Recorded Client Recorded Date Recorded By Document 02/14/18 12:40 [id number] 02/14/18 12:54 CS 02/14/18 12:40 Wound Center Nurse 2 [Procedure/Treatment] -Time 12:40 -Correct Patient Yes -Correct Side, Site, Position Yes -Correct Procedure Yes -Procedure Performed Yes -Type of Procedure Debridement -Clinical Debridement Subcutaneous -Post Debridement Size (cm) - Length 13.8 -Post Debridement Size (cm) - Width 4.2 -Post Debridement Size (cm) - Depth 0.5 -Total Square Cm 57.96 -Wound/Ulcer Outcome Healed- Graft -Ulcer Cleansing Not Cleansed -Foul Odor after Cleansing No -Type of bioengineered Tissue [id number] -Expiration Date 07/25/20 -Product Lot Number [id number] -Percent Used 100 -Bleeding Controlled with Pressure SURGIFOAM -Treatment Response Procedure Tolerated Well [See Physician Procedure note for Specifics] Pain Scale: 0-10 Numeric [Pain] -Is Patient Pain Free? No Psych/Mental Status: Normal Affect, Appropriate Debridement Note Post-Debridement Measurements/Treatment WC - Nurse 2 - General Ulcer CM Notes Start: 02/04/18 10:02 Freq: Status: Active Protocol: Activity Type Activity Date Activity User E-Sign Co-Sign Detail Recorded Client Recorded Date Recorded By Document 02/07/18 14:50 [id number] 02/07/18 14:57 Document 02/14/18 12:40 [id number] 02/14/18 12:54 02/07/18 02/14/18 14:50 12:40 Wound Center Nurse 2 #9 Lower Lumbar- Midline -Time 14:50 12:40 -Correct Patient Yes Yes -Correct Side, Site, Position Yes Yes -Correct Procedure Yes Yes -Procedure Performed Yes Yes -Type of Procedure Debridement Debridement -Clinical Debridement Subcutaneous Subcutaneous -Post Debridement Size (cm) - Length 13.8 13.8 -Post Debridement Size (cm) - Width 4.4 4.2 -Post Debridement Size (cm) - Depth 0.5 0.5 -Total Square Cm 60.72 57.96 -Wound/Ulcer Outcome Not Healed Healed- Graft -Ulcer Cleansing Rinsed/ Not Cleansed Irrigated with Saline -Foul Odor after Cleansing No No -Bioengineered Tissue Yes -Type of bioengineered Tissue [id number] -Expiration Date 07/25/20 07/25/20 -Product Lot Number [id number] -Percent Used 100 100 -Saline Lot Number [id number] -Topical Lidocaine (%) 4 -Bleeding Controlled with Pressure Pressure SURGIFOAM -Treatment Response Procedure Procedure Tolerated Well Tolerated Well Pain Scale: 0-10 Numeric Is Patient Pain Free? Yes No Wound debrided: lower lumbar midline Laterality: Not Applicable Type of Debridement: Excisional debridement Anesthesia Used: 4% Lidocaine Solution Depth: Down to and including healthy tissue, in the subcutaneous layer Percentage of wound debrided: 100 Instrument Used: 5mm curette Tissue Removed: yellow slough, devitalized tissue Severity: Fat Layer Exposed Amount of bleeding with debridement: Moderate Bleeding Controlled with: Compression and gauze, Gel Foam Patient tolerated procedure well Assessment/Plan Active Problems (Last Reviewed 11/19/17 @ 16:27 by Micky Mauro MD) Nonhealing surgical wound (Chronic) Open wound of lower back (Chronic) Cellulitis (Chronic) Chronic kidney disease (Chronic) Assessment: chronic surgical wound dehiscence lumbar with complex abscess and recent surgical debridement. malnutrition. other multiple comorbidities. edema bilateral lower extremities. Bleeding site from within wound controlled with combination of silver nitrate and Surgifoam. Bleeding appears to be controlled. venous insufficiency. immunocompromised status. Plan: Debridement done as documented above. Procedure was well-tolerated. Sixth application of Puraply was done today using 100% of product. Puraply was applied to the majority of the wound and Guera applied to center of wound. Covered with wound veil. Will continue to use gauze and ABDs with changes twice daily to the wound above the wound veil, leaving the wound veil in place. Due to increased pain, CT with contrast ordered to evaluate for abscess of his lumbar spine. Wound cultures repeated today. Order for ESR and CRP given to evaluate for deeper infection as well. Continue increased protein intake. F/U in [address] Wick.
--- NOTE | 2018-02-14 14:23 | PN.PCM_ITS ---
(1) Nonhealing surgical wound Status: Chronic Current Visit: Yes Qualifiers: Encounter type: subsequent encounter Code(s): T81.89XA - Other complications of procedures, not elsewhere classified, initial encounter (2) Open wound of lower back Status: Chronic Current Visit: Yes Code(s): S31.000A - Unspecified open wound of lower back and pelvis without penetration into retroperitoneum, initial encounter (3) Cellulitis Status: Chronic Current Visit: Yes Qualifiers: Site of cellulitis: trunk Site of cellulitis of trunk: back Qualified Code(s): L03.312 - Cellulitis of back [any part except buttock] Code(s): L03.90 - Cellulitis, unspecified (4) Chronic kidney disease Status: Chronic Current Visit: Yes Qualifiers: Chronic kidney disease stage: stage 3 (moderate) Qualified Code(s): N18.3 - Chronic kidney disease, stage 3 (moderate) Code(s): N18.9 - Chronic kidney disease, unspecified Type of Wound Chief Complaint: Nonhealing surgical wound of lower back History of Wound: Mr. Marshall is a 72-yo who has been seen here at the wound center for a nonhealing surgical wound of his lower back s/p surgical debridement for an abscess s/p lumbar spine surgery. His original surgery on his lower back was approximately 18 months ago and he has had multiple complications since that time. He underwent surgical debridement on 03/04/[address] Davila at [facility] in [place] and was discharged with a wound vac for healing by secondary intention with possible muscle flap closure in the future. He followed up with his surgeon on 04/18/17 for further evaluation and recommendations and they plan to close the wound with a muscle flap but he continues to develop infections. He is also being seen by Infectious Disease as needed. Progress of Wound: Cuong is here for follow-up of his nonhealing surgical wound of his lower back. He reports having a significant amount of increased pain in the last week but denies any odor and reports less drainage. He states that it feels like it did when he had an abscess last year. He had problems with snap vac leaking again. Has been using gauze and ABDs. He has 2 days left of antibiotics. He has had 5 applications of Purapply. - Physical Exam Vital Signs Temp Pulse Resp BP 97.1 F L 68 16 103/55 L 02/14/18 12:11 02/11/18 11:08 02/14/18 12:11 02/14/18 12:11 General: Alert, Oriented x3, Cooperative, No apparent distress HEENT: Atraumatic, Normocephalic Oral: Moist Mucosa Skin: Ulcer/ Wound Wound Measurements and Assessment - Nurse 1 - General Ulcer Measurement Start: 02/04/18 10:02 Freq: Status: Active Protocol: Activity Type Activity Date Activity User E-Sign Co-Sign Detail Recorded Client Recorded Date Recorded By Document 02/14/18 12:11 [facility] [id number] 02/14/18 12:22 [facility] 02/14/18 12:11 Wound Center Nurse 1 [Ulcer Assessment] #9 Lower Lumbar- Midline -Combined with other wound No -Current Size (cm) - Length 14.7 -Current Size (cm) - Width 5.2 -Current Size (cm) - Depth 1.1 -Total Square Cm 76.44 -Photo Taken No -Epithelialization None Present -Tunneling No -Undermining/Tunneling No -Circular Undermining No -Exudate Amt Small (1-33%) -Exudate Type Sanguineous -Wound Margin Distinct, Outline Attached -Granulation Amt Medium (34-66%) -Granulation Quality Pale Red -Slough/Fibrin Yes -Necrosis Amt Medium (34-66%) -Necrotic Tissue Type Adherent Slough -Texture (Uma-wound Skin Appearance) Scarring -Moisture (Uma-wound Skin Appearance Dry/Scaly ) -Color (Uma-wound Skin Appearance) Assessed -Temperature (Uma-wound Skin No Abnormality Appearance) (Pt Warm) -Tenderness on Palpation (Uma-wound No Skin Appearance) -Ulcer Cleansing Wound Cleanser -Foul Odor after Cleansing No -Anesthetic Used 4% Lidocaine Solution - Nurse 2 - General Ulcer CM Notes Start: 02/04/18 10:02 Freq: Status: Active Protocol: Activity Type Activity Date Activity User E-Sign Co-Sign Detail Recorded Client Recorded Date Recorded By Document 02/14/18 12:40 [id number] 02/14/18 12:54 CS 02/14/18 12:40 Wound Center Nurse 2 [Procedure/Treatment] -Time 12:40 -Correct Patient Yes -Correct Side, Site, Position Yes -Correct Procedure Yes -Procedure Performed Yes -Type of Procedure Debridement -Clinical Debridement Subcutaneous -Post Debridement Size (cm) - Length 13.8 -Post Debridement Size (cm) - Width 4.2 -Post Debridement Size (cm) - Depth 0.5 -Total Square Cm 57.96 -Wound/Ulcer Outcome Healed- Graft -Ulcer Cleansing Not Cleansed -Foul Odor after Cleansing No -Type of bioengineered Tissue [id number] -Expiration Date 07/25/20 -Product Lot Number [id number] -Percent Used 100 -Bleeding Controlled with Pressure SURGIFOAM -Treatment Response Procedure Tolerated Well [See Physician Procedure note for Specifics] Pain Scale: 0-10 Numeric [Pain] -Is Patient Pain Free? No Psych/Mental Status: Normal Affect, Appropriate Debridement Note Post-Debridement Measurements/Treatment WC - Nurse 2 - General Ulcer CM Notes Start: 02/04/18 10:02 Freq: Status: Active Protocol: Activity Type Activity Date Activity User E-Sign Co-Sign Detail Recorded Client Recorded Date Recorded By Document 02/07/18 14:50 [id number] 02/07/18 14:57 Document 02/14/18 12:40 [id number] 02/14/18 12:54 02/07/18 02/14/18 14:50 12:40 Wound Center Nurse 2 #9 Lower Lumbar- Midline -Time 14:50 12:40 -Correct Patient Yes Yes -Correct Side, Site, Position Yes Yes -Correct Procedure Yes Yes -Procedure Performed Yes Yes -Type of Procedure Debridement Debridement -Clinical Debridement Subcutaneous Subcutaneous -Post Debridement Size (cm) - Length 13.8 13.8 -Post Debridement Size (cm) - Width 4.4 4.2 -Post Debridement Size (cm) - Depth 0.5 0.5 -Total Square Cm 60.72 57.96 -Wound/Ulcer Outcome Not Healed Healed- Graft -Ulcer Cleansing Rinsed/ Not Cleansed Irrigated with Saline -Foul Odor after Cleansing No No -Bioengineered Tissue Yes -Type of bioengineered Tissue [id number] -Expiration Date 07/25/20 07/25/20 -Product Lot Number [id number] -Percent Used 100 100 -Saline Lot Number [id number] -Topical Lidocaine (%) 4 -Bleeding Controlled with Pressure Pressure SURGIFOAM -Treatment Response Procedure Procedure Tolerated Well Tolerated Well Pain Scale: 0-10 Numeric Is Patient Pain Free? Yes No Wound debrided: lower lumbar midline Laterality: Not Applicable Type of Debridement: Excisional debridement Anesthesia Used: 4% Lidocaine Solution Depth: Down to and including healthy tissue, in the subcutaneous layer Percentage of wound debrided: 100 Instrument Used: 5mm curette Tissue Removed: yellow slough, devitalized tissue Severity: Fat Layer Exposed Amount of bleeding with debridement: Moderate Bleeding Controlled with: Compression and gauze, Gel Foam Patient tolerated procedure well Assessment/Plan Active Problems (Last Reviewed 11/19/17 @ 16:27 by Micky Mauro MD) Nonhealing surgical wound (Chronic) Open wound of lower back (Chronic) Cellulitis (Chronic) Chronic kidney disease (Chronic) Assessment: chronic surgical wound dehiscence lumbar with complex abscess and recent surgical debridement. malnutrition. other multiple comorbidities. edema bilateral lower extremities. Bleeding site from within wound controlled with combination of silver nitrate and Surgifoam. Bleeding appears to be controlled. venous insufficiency. immunocompromised status. Plan: Debridement done as documented above. Procedure was well-tolerated. Sixth application of Puraply was done today using 100% of product. Puraply was applied to the majority of the wound and Guera applied to center of wound. Covered with wound veil. Will continue to use gauze and ABDs with changes twice daily to the wound above the wound veil, leaving the wound veil in place. Due to increased pain, CT with contrast ordered to evaluate for abscess of his lumbar spine. Wound cultures repeated today. Order for ESR and CRP given to evaluate for deeper infection as well. Continue increased protein intake. F/U in [address] Wick.
[2018-02-21 13:34] VITALS: BP 119/67; PULSE 68; RESP 16; TEMP 36.6; BMI 56.5
--- NOTE | 2018-02-21 18:23 | PCM.WC.PN ---
(1) Nonhealing surgical wound Status: Chronic Current Visit: Yes Qualifiers: Encounter type: subsequent encounter Code(s): T81.89XA - Other complications of procedures, not elsewhere classified, initial encounter (2) Open wound of lower back Status: Chronic Current Visit: Yes Code(s): S31.000A - Unspecified open wound of lower back and pelvis without penetration into retroperitoneum, initial encounter (3) Cellulitis Status: Chronic Current Visit: Yes Qualifiers: Site of cellulitis: trunk Site of cellulitis of trunk: back Qualified Code(s): L03.312 - Cellulitis of back [any part except buttock] Code(s): L03.90 - Cellulitis, unspecified (4) Chronic kidney disease Status: Chronic Current Visit: Yes Qualifiers: Chronic kidney disease stage: stage 3 (moderate) Qualified Code(s): N18.3 - Chronic kidney disease, stage 3 (moderate) Code(s): N18.9 - Chronic kidney disease, unspecified Type of Wound Date of Service: 02/21/18 Chief Complaint: Nonhealing surgical wound of lower back History of Wound: Mr. Marshall is a 72-yo who has been seen here at the wound center for a nonhealing surgical wound of his lower back s/p surgical debridement for an abscess s/p lumbar spine surgery. His original surgery on his lower back was approximately 18 months ago and he has had multiple complications since that time. He underwent surgical debridement on 03/04/[address] Davila at [facility] in [place] and was discharged with a wound vac for healing by secondary intention with possible muscle flap closure in the future. He followed up with his surgeon on 04/18/17 for further evaluation and recommendations and they plan to close the wound with a muscle flap but he continues to develop infections. He is also being seen by Infectious Disease as needed. Progress of Wound: Cuong is here for follow-up of his nonhealing surgical wound of his lower back. He reports having a significant amount of increased pain in the last with some pain into his legs and left foot but denies any odor and reports less drainage. His was only having to change the dressing once daily. He states that it feels like it did when he had an abscess last year. Has been using gauze and ABDs. He has completed antibiotics. He has had 6 applications of Purapply. - Physical Exam Vital Signs Temp Pulse Resp BP 97.8 F 68 16 119/67 02/21/18 13:34 02/21/18 13:34 02/21/18 13:34 02/21/18 13:34 General: Alert, Oriented x3, Cooperative, No apparent distress HEENT: Atraumatic, Normocephalic Oral: Moist Mucosa Skin: Ulcer/ Wound Wound Measurements and Assessment WC - Nurse 1 - General Ulcer Measurement Start: 02/04/18 10:02 Freq: Status: Active Protocol: Activity Type Activity Date Activity User E-Sign Co-Sign Detail Recorded Client Recorded Date Recorded By Document 02/21/18 13:34 [facility] [id number] 02/21/18 13:45 [facility] 02/21/18 13:34 Wound Center Nurse 1 [Ulcer Assessment] #9 Lower Lumbar- Midline -Combined with other wound No -Current Size (cm) - Length 14.5 -Current Size (cm) - Width 5 -Current Size (cm) - Depth 1.3 -Total Square Cm 72.5 -Photo Taken No -Epithelialization None Present -Tunneling No -Undermining/Tunneling No -Circular Undermining No -Exudate Amt Small (1-33%) -Exudate Type Serosanguineous -Wound Margin Distinct, Outline Attached -Granulation Amt Small (1-33%) -Granulation Quality Red -Slough/Fibrin Yes -Necrosis Amt Large (67-100%) -Necrotic Tissue Type Adherent Slough -Texture (Uma-wound Skin Appearance) Scarring -Moisture (Uma-wound Skin Appearance Assessed ) Dry/Scaly -Color (Uma-wound Skin Appearance) Erythema -Temperature (Uma-wound Skin No Abnormality Appearance) (Pt Warm) -Tenderness on Palpation (Uma-wound Yes Skin Appearance) -Ulcer Cleansing Wound Cleanser -Foul Odor after Cleansing No -Anesthetic Used 4% Lidocaine Solution - Nurse 2 - General Ulcer CM Notes Start: 02/04/18 10:02 Freq: Status: Active Protocol: Activity Type Activity Date Activity User E-Sign Co-Sign Detail Recorded Client Recorded Date Recorded By Document 02/21/18 13:53 [id number] 02/21/18 14:24 CS 02/21/18 13:53 Wound Center Nurse 2 [Procedure/Treatment] -Time 13:54 -Correct Patient Yes -Correct Side, Site, Position Yes -Correct Procedure Yes -Procedure Performed Yes -Type of Procedure Debridement -Clinical Debridement Subcutaneous -Post Debridement Size (cm) - Length 13.8 -Post Debridement Size (cm) - Width 4.5 -Post Debridement Size (cm) - Depth 0.5 -Total Square Cm 62.10 -Wound/Ulcer Outcome Not Healed -Ulcer Cleansing Rinsed/ Irrigated with Saline -Foul Odor after Cleansing No -Bioengineered Tissue Yes -Type of bioengineered Tissue [id number] -Expiration Date 07/25/20 -Product Lot Number [id number] -Percent Used 100 -Saline Lot Number [id number] -Bleeding Controlled with SURGIFOAM -Treatment Response Procedure Tolerated Well [See Physician Procedure note for Specifics] Pain Scale: 0-10 Numeric [Pain] -Is Patient Pain Free? No Psych/Mental Status: Normal Affect, Appropriate Debridement Note Post-Debridement Measurements/Treatment WC - Nurse 2 - General Ulcer CM Notes Start: 02/04/18 10:02 Freq: Status: Active Protocol: Activity Type Activity Date Activity User E-Sign Co-Sign Detail Recorded Client Recorded Date Recorded By Document 02/07/18 14:50 [id number] 02/07/18 14:57 Document 02/14/18 12:40 [id number] 02/14/18 12:54 CS Document 02/21/18 13:53 [id number] 02/21/18 14:24 02/07/18 02/14/18 02/21/18 14:50 12:40 13:53 Wound Center Nurse 2 #9 Lower Lumbar- Midline -Time 14:50 12:40 13:54 -Correct Patient Yes Yes Yes -Correct Side, Site, Position Yes Yes Yes -Correct Procedure Yes Yes Yes -Procedure Performed Yes Yes Yes -Type of Procedure Debridement Debridement Debridement -Clinical Debridement Subcutaneous Subcutaneous Subcutaneous -Post Debridement Size (cm) - Length 13.8 13.8 13.8 -Post Debridement Size (cm) - Width 4.4 4.2 4.5 -Post Debridement Size (cm) - Depth 0.5 0.5 0.5 -Total Square Cm 60.72 57.96 62.10 -Wound/Ulcer Outcome Not Healed Healed- Graft Not Healed -Ulcer Cleansing Rinsed/ Not Cleansed Rinsed/ Irrigated with Irrigated with Saline Saline -Foul Odor after Cleansing No No No -Bioengineered Tissue Yes Yes -Type of bioengineered Tissue [id number] -Expiration Date 07/25/20 07/25/20 07/25/20 -Product Lot Number [id number] -Percent Used 100 100 100 -Saline Lot Number [id number] -Topical Lidocaine (%) 4 -Bleeding Controlled with Pressure Pressure SURGIFOAM SURGIFOAM -Treatment Response Procedure Procedure Procedure Tolerated Well Tolerated Well Tolerated Well Pain Scale: 0-10 Numeric Is Patient Pain Free? Yes No No Wound debrided: lower lumbar midline Laterality: Not Applicable Type of Debridement: Excisional debridement Anesthesia Used: 4% Lidocaine Solution Depth: Down to and including healthy tissue, in the subcutaneous layer Percentage of wound debrided: 100 Instrument Used: 7mm curette Tissue Removed: yellow slough, devitalized tissue Severity: Fat Layer Exposed Amount of bleeding with debridement: Moderate Bleeding Controlled with: Gel Foam Patient tolerated procedure well Assessment/Plan Active Problems (Last Reviewed 11/19/17 @ 16:27 by Micky Mauro MD) Nonhealing surgical wound (Chronic) Open wound of lower back (Chronic) Cellulitis (Chronic) Chronic kidney disease (Chronic) Assessment: chronic surgical wound dehiscence lumbar with complex abscess and recent surgical debridement. malnutrition. other multiple comorbidities. edema bilateral lower extremities. Bleeding site from within wound controlled with combination of silver nitrate and Surgifoam. Bleeding appears to be controlled. venous insufficiency. immunocompromised status. Plan: Debridement done as documented above. Procedure was well-tolerated. seventh application of Puraply was done today using 100% of product. Puraply was applied to the majority of the wound and Guera applied to center of wound. Covered with wound veil. Will continue to use gauze and ABDs with changes twice daily to the wound above the wound veil, leaving the wound veil in place. Due to increased pain, CT with contrast ordered and is scheduled for Saturday to evaluate for abscess of his lumbar spine. Wound cultures repeated today, were negative last week. ESR and CRP were elevated but less than previous. Continue increased protein intake. F/U in [address] Wick.
--- NOTE | 2018-02-21 18:27 | PN.PCM_ITS ---
(1) Nonhealing surgical wound Status: Chronic Current Visit: Yes Qualifiers: Encounter type: subsequent encounter Code(s): T81.89XA - Other complications of procedures, not elsewhere classified, initial encounter (2) Open wound of lower back Status: Chronic Current Visit: Yes Code(s): S31.000A - Unspecified open wound of lower back and pelvis without penetration into retroperitoneum, initial encounter (3) Cellulitis Status: Chronic Current Visit: Yes Qualifiers: Site of cellulitis: trunk Site of cellulitis of trunk: back Qualified Code(s): L03.312 - Cellulitis of back [any part except buttock] Code(s): L03.90 - Cellulitis, unspecified (4) Chronic kidney disease Status: Chronic Current Visit: Yes Qualifiers: Chronic kidney disease stage: stage 3 (moderate) Qualified Code(s): N18.3 - Chronic kidney disease, stage 3 (moderate) Code(s): N18.9 - Chronic kidney disease, unspecified Type of Wound Date of Service: 02/21/18 Chief Complaint: Nonhealing surgical wound of lower back History of Wound: Mr. Marshall is a 72-yo who has been seen here at the wound center for a nonhealing surgical wound of his lower back s/p surgical d ebridement for an abscess s/p lumbar spine surgery. His original surgery on his lower back was approximately 18 months ago and he has had multiple complications since that time. He underwent surgical debridement on 03/04/[address] Davila at [facility] in [place] and was discharged with a wound vac for healing by secondary intention with possible muscle flap closure in the future. He followed up with his surgeon on 04/18/17 for further evaluation and recommendations and they plan to close the wound with a muscle flap but he continues to develop infections. He is also being seen by Infectious Disease as needed. Progress of Wound: Cuong is here for follow-up of his nonhealing surgical wound of his lower back. He reports having a significant amount of increased pain in the last with some pain into his legs and left foot but denies any odor and reports less drainage. His was only having to change the dressing once daily. He states that it feels like it did when he had an abscess last year. Has been using gauze and ABDs. He has completed antibiotics. He has had 6 applications of Purapply. - Physical Exam Vital Signs Temp Pulse Resp BP 97.8 F 68 16 119/67 02/21/18 13:34 02/21/18 13:34 02/21/18 13:34 02/21/18 13:34 General: Alert, Oriented x3, Cooperative, No apparent distress HEENT: Atraumatic, Normocephalic Oral: Moist Mucosa Skin: Ulcer/ Wound Wound Measurements and Assessment - Nurse 1 - General Ulcer Measurement Start: 02/04/18 10:02 Freq: Status: Active Protocol: Activity Type Activity Date Activity User E-Sign Co-Sign Detail Recorded Client Recorded Date Recorded By Document 02/21/18 13:34 [facility] [id number] 02/21/18 13:45 [facility] 02/21/18 13:34 Wound Center Nurse 1 [Ulcer Assessment] #9 Lower Lumbar- Midline -Combined with other wound No -Current Size (cm) - Length 14.5 -Current Size (cm) - Width 5 -Current Size (cm) - Depth 1.3 -Total Square Cm 72.5 -Photo Taken No -Epithelialization None Present -Tunneling No -Undermining/Tunneling No -Circular Undermining No -Exudate Amt Small (1-33%) -Exudate Type Serosanguineous -Wound Margin Distinct, Outline Attached -Granulation Amt Small (1-33%) -Granulation Quality Red -Slough/Fibrin Yes -Necrosis Amt Large (67-100%) -Necrotic Tissue Type Adherent Slough -Texture (Uma-wound Skin Appearance) Scarring -Moisture (Uma-wound Skin Appearance Assessed ) Dry/Scaly -Color (Uma-wound Skin Appearance) Erythema -Temperature (Uma-wound Skin No Abnormality Appearance) (Pt Warm) -Tenderness on Palpation (Uma-wound Yes Skin Appearance) -Ulcer Cleansing Wound Cleanser -Foul Odor after Cleansing No -Anesthetic Used 4% Lidocaine Solution - Nurse 2 - General Ulcer CM Notes Start: 02/04/18 10:02 Freq: Status: Active Protocol: Activity Type Activity Date Activity User E-Sign Co-Sign Detail Recorded Client Recorded Date Recorded By Document 02/21/18 13:53 [id number] 02/21/18 14:24 CS 02/21/18 13:53 Wound Center Nurse 2 [Procedure/Treatment] -Time 13:54 -Correct Patient Yes -Correct Side, Site, Position Yes -Correct Procedure Yes -Procedure Performed Yes -Type of Procedure Debridement -Clinical Debridement Subcutaneous -Post Debridement Size (cm) - Length 13.8 -Post Debridement Size (cm) - Width 4.5 -Post Debridement Size (cm) - Depth 0.5 -Total Square Cm 62.10 -Wound/Ulcer Outcome Not Healed -Ulcer Cleansing Rinsed/ Irrigated with Saline -Foul Odor after Cleansing No -Bioengineered Tissue Yes -Type of bioengineered Tissue [id number] -Expiration Date 07/25/20 -Product Lot Number [id number] -Percent Used 100 -Saline Lot Number [id number] -Bleeding Controlled with SURGIFOAM -Treatment Response Procedure Tolerated Well [See Physician Procedure note for Specifics] Pain Scale: 0-10 Numeric [Pain] -Is Patient Pain Free? No Psych/Mental Status: Normal Affect, Appropriate Debridement Note Post-Debridement Measurements/Treatment WC - Nurse 2 - General Ulcer CM Notes Start: 02/04/18 10:02 Freq: Status: Active Protocol: Activity Type Activity Date Activity User E-Sign Co-Sign Detail Recorded Client Recorded Date Recorded By Document 02/07/18 14:50 [id number] 02/07/18 14:57 Document 02/14/18 12:40 [id number] 02/14/18 12:54 CS Document 02/21/18 13:53 [id number] 02/21/18 14:24 02/07/18 02/14/18 02/21/18 14:50 12:40 13:53 Wound Center Nurse 2 #9 Lower Lumbar- Midline -Time 14:50 12:40 13:54 -Correct Patient Yes Yes Yes -Correct Side, Site, Position Yes Yes Yes -Correct Procedure Yes Yes Yes -Procedure Performed Yes Yes Yes -Type of Procedure Debridement Debridement Debridement -Clinical Debridement Subcutaneous Subcutaneous Subcutaneous -Post Debridement Size (cm) - Length 13.8 13.8 13.8 -Post Debridement Size (cm) - Width 4.4 4.2 4.5 -Post Debridement Size (cm) - Depth 0.5 0.5 0.5 -Total Square Cm 60.72 57.96 62.10 -Wound/Ulcer Outcome Not Healed Healed- Graft Not Healed -Ulcer Cleansing Rinsed/ Not Cleansed Rinsed/ Irrigated with Irrigated with Saline Saline -Foul Odor after Cleansing No No No -Bioengineered Tissue Yes Yes -Type of bioengineered Tissue [id number] -Expiration Date 07/25/20 07/25/20 07/25/20 -Product Lot Number [id number] -Percent Used 100 100 100 -Saline Lot Number [id number] -Topical Lidocaine (%) 4 -Bleeding Controlled with Pressure Pressure SURGIFOAM SURGIFOAM -Treatment Response Procedure Procedure Procedure Tolerated Well Tolerated Well Tolerated Well Pain Scale: 0-10 Numeric Is Patient Pain Free? Yes No No Wound debrided: lower lumbar midline Laterality: Not Applicable Type of Debridement: Excisional debridement Anesthesia Used: 4% Lidocaine Solution Depth: Down to and including healthy tissue, in the subcutaneous layer Percentage of wound debrided: 100 Instrument Used: 7mm curette Tissue Removed: yellow slough, devitalized tissue Severity: Fat Layer Exposed Amount of bleeding with debridement: Moderate Bleeding Controlled with: Gel Foam Patient tolerated procedure well Assessment/Plan Active Problems (Last Reviewed 11/19/17 @ 16:27 by Micky Mauro MD) Nonhealing surgical wound (Chronic) Open wound of lower back (Chronic) Cellulitis (Chronic) Chronic kidney disease (Chronic) Assessment: chronic surgical wound dehiscence lumbar with complex abscess and recent surgical debridement. malnutrition. other multiple comorbidities. edema bilateral lower extremities. Bleeding site from within wound controlled with combination of silver nitrate and Surgifoam. Bleeding appears to be controlled. venous insufficiency. immunocompromised status. Plan: Debridement done as documented above. Procedure was well-tolerated. seventh application of Puraply was done today using 100% of product. Puraply was applied to the majority of the wound and Guera applied to center of wound. Covered with wound veil. Will continue to use gauze and ABDs with changes twice daily to the wound above the wound veil, leaving the wound veil in place. Due to increased pain, CT with contrast ordered and is scheduled for Saturday to evaluate for abscess of his lumbar spine. Wound cultures repeated today, were negative last week. ESR and CRP were elevated but less than previous. Continue increased protein intake. F/U in [address] Wick.
[2018-02-28 14:08] VITALS: BP 114/62; PULSE 81; RESP 18; TEMP 36.8; BMI 56.5
--- NOTE | 2018-02-28 17:56 | PCM.WC.PN ---
(1) Nonhealing surgical wound Status: Chronic Current Visit: Yes Qualifiers: Encounter type: subsequent encounter Code(s): T81.89XA - Other complications of procedures, not elsewhere classified, initial encounter (2) Open wound of lower back Status: Chronic Current Visit: Yes Code(s): S31.000A - Unspecified open wound of lower back and pelvis without penetration into retroperitoneum, initial encounter (3) Cellulitis Status: Chronic Current Visit: Yes Qualifiers: Site of cellulitis: trunk Site of cellulitis of trunk: back Qualified Code(s): L03.312 - Cellulitis of back [any part except buttock] Code(s): L03.90 - Cellulitis, unspecified (4) Chronic kidney disease Status: Chronic Current Visit: Yes Qualifiers: Chronic kidney disease stage: stage 3 (moderate) Qualified Code(s): N18.3 - Chronic kidney disease, stage 3 (moderate) Code(s): N18.9 - Chronic kidney disease, unspecified Type of Wound Date of Service: 02/28/18 Chief Complaint: Nonhealing surgical wound of lower back History of Wound: Mr. Marshall is a 72-yo who has been seen here at the wound center for a nonhealing surgical wound of his lower back s/p surgical debridement for an abscess s/p lumbar spine surgery. His original surgery on his lower back was approximately 18 months ago and he has had multiple complications since that time. He underwent surgical debridement on 03/04/[address] Davila at [facility] in [place] and was discharged with a wound vac for healing by secondary intention with possible muscle flap closure in the future. He followed up with his surgeon on 04/18/17 for further evaluation and recommendations and they plan to close the wound with a muscle flap but he continues to develop infections. He is also being seen by Infectious Disease as needed. Progress of Wound: Cuong is here for follow-up of his nonhealing surgical wound of his lower back. He reports having a significant amount of increased pain in the last several weeks with some pain into his legs and left foot but denies any odor and reports less drainage. His was only having to change the dressing once daily. Has been using gauze and ABDs. Wound culture was positive for MRSA and he hasn't started antibiotics yet. Prescription for doxycycline 100 mg BID was called in to his pharmacy and he is aware that it is there for him to start. He has had 7 applications of Purapply. He had a CT of his lumbar spine on 02/24/18 which showed a sclerotic lesion in his right iliac wing that was concerning for metastatic bone lesion. He is undergoing further work up through his PCP. - Physical Exam Vital Signs Temp Pulse Resp BP 98.2 F 81 18 114/62 02/28/18 14:08 02/28/18 14:08 02/28/18 14:08 02/28/18 14:08 General: Alert, Oriented x3, Cooperative, No apparent distress HEENT: Atraumatic, Normocephalic Oral: Moist Mucosa Skin: Ulcer/ Wound Wound Measurements and Assessment WC - Nurse 1 - General Ulcer Measurement Start: 02/04/18 10:02 Freq: Status: Active Protocol: Activity Type Activity Date Activity User E-Sign Co-Sign Detail Recorded Client Recorded Date Recorded By Document 02/28/18 14:08 [id number] 02/28/18 14:10 02/28/18 14:08 Wound Center Nurse 1 [Ulcer Assessment] #9 Lower Lumbar- Midline -Combined with other wound No -Current Size (cm) - Length 14.2 -Current Size (cm) - Width 4.5 -Current Size (cm) - Depth 0.6 -Total Square Cm 63.90 -Photo Taken No -Epithelialization None Present -Tunneling No -Undermining/Tunneling No -Circular Undermining No -Classification - Thickness Full Thickness without Exposed Support Structure -Exudate Amt Medium (34-66%) -Exudate Type Serosanguineous -Wound Margin Distinct, Outline Attached -Granulation Amt Small (1-33%) -Granulation Quality Red -Slough/Fibrin Yes -Necrosis Amt Large (67-100%) -Necrotic Tissue Type Adherent Slough -Texture (Uma-wound Skin Appearance) Assessed Scarring -Moisture (Uma-wound Skin Appearance Assessed ) Maceration Weeping -Color (Uma-wound Skin Appearance) Assessed -Temperature (Uma-wound Skin No Abnormality Appearance) (Pt Warm) -Tenderness on Palpation (Uma-wound No Skin Appearance) -Ulcer Cleansing Rinsed/ Irrigated with Saline -Foul Odor after Cleansing No -Anesthetic Used 4% Lidocaine Solution WC - Nurse 2 - General Ulcer CM Notes Start: 02/04/18 10:02 Freq: Status: Active Protocol: Activity Type Activity Date Activity User E-Sign Co-Sign Detail Recorded Client Recorded Date Recorded By Document 02/28/18 14:09 MW [id number] 02/28/18 14:29 MW 02/28/18 14:09 Wound Center Nurse 2 [Procedure/Treatment] -Time 14:10 -Correct Patient Yes -Correct Side, Site, Position Yes -Correct Procedure Yes -Procedure Performed Yes -Type of Procedure Debridement -Clinical Debridement Subcutaneous -Post Debridement Size (cm) - Length 13.7 -Post Debridement Size (cm) - Width 4.5 -Post Debridement Size (cm) - Depth 0.5 -Total Square Cm 61.65 -Wound/Ulcer Outcome Not Healed -Ulcer Cleansing Rinsed/ Irrigated with Saline -Foul Odor after Cleansing No -Bioengineered Tissue Yes -Type of bioengineered Tissue [id number] -Expiration Date 07/25/20 -Product Lot Number [id number] -Percent Used 100 -Saline Lot Number [id number] -Bleeding Controlled with Pressure -Treatment Response Procedure Tolerated Well [See Physician Procedure note for Specifics] Pain Scale: 0-10 Numeric [Pain] -Is Patient Pain Free? Yes Psych/Mental Status: Normal Affect, Appropriate Debridement Note Post-Debridement Measurements/Treatment WC - Nurse 2 - General Ulcer CM Notes Start: 02/04/18 10:02 Freq: Status: Active Protocol: Activity Type Activity Date Activity User E-Sign Co-Sign Detail Recorded Client Recorded Date Recorded By Document 02/07/18 14:50 TM [id number] 02/07/18 14:57 TM Document 02/14/18 12:40 CS [id number] 02/14/18 12:54 CS Document 02/21/18 13:53 CS [id number] 02/21/18 14:24 CS Document 02/28/18 14:09 MW [id number] 02/28/18 14:29 MW 02/07/18 02/14/18 02/21/18 14:50 12:40 13:53 Wound Center Nurse 2 #9 Lower Lumbar- Midline -Time 14:50 12:40 13:54 -Correct Patient Yes Yes Yes -Correct Side, Site, Position Yes Yes Yes -Correct Procedure Yes Yes Yes -Procedure Performed Yes Yes Yes -Type of Procedure Debridement Debridement Debridement -Clinical Debridement Subcutaneous Subcutaneous Subcutaneous -Post Debridement Size (cm) - Length 13.8 13.8 13.8 -Post Debridement Size (cm) - Width 4.4 4.2 4.5 -Post Debridement Size (cm) - Depth 0.5 0.5 0.5 -Total Square Cm 60.72 57.96 62.10 -Wound/Ulcer Outcome Not Healed Healed- Graft Not Healed -Ulcer Cleansing Rinsed/ Not Cleansed Rinsed/ Irrigated with Irrigated with Saline Saline -Foul Odor after Cleansing No No No -Bioengineered Tissue Yes Yes -Type of bioengineered Tissue [id number] -Expiration Date 07/25/20 07/25/20 07/25/20 -Product Lot Number [id number] -Percent Used 100 100 100 -Saline Lot Number [id number] -Topical Lidocaine (%) 4 -Bleeding Controlled with Pressure Pressure SURGIFOAM SURGIFOAM -Treatment Response Procedure Procedure Procedure Tolerated Well Tolerated Well Tolerated Well Pain Scale: 0-10 Numeric Is Patient Pain Free? Yes No No 02/28/18 14:09 Wound Center Nurse 2 #9 Lower Lumbar- Midline -Time 14:10 -Correct Patient Yes -Correct Side, Site, Position Yes -Correct Procedure Yes -Procedure Performed Yes -Type of Procedure Debridement -Clinical Debridement Subcutaneous -Post Debridement Size (cm) - Length 13.7 -Post Debridement Size (cm) - Width 4.5 -Post Debridement Size (cm) - Depth 0.5 -Total Square Cm 61.65 -Wound/Ulcer Outcome Not Healed -Ulcer Cleansing Rinsed/ Irrigated with Saline -Foul Odor after Cleansing No -Bioengineered Tissue Yes -Type of bioengineered Tissue [id number] -Expiration Date 07/25/20 -Product Lot Number [id number] -Percent Used 100 -Saline Lot Number [id number] -Topical Lidocaine (%) -Bleeding Controlled with Pressure -Treatment Response Procedure Tolerated Well Pain Scale: 0-10 Numeric Is Patient Pain Free? Yes Wound debrided: lower lumbar midline Laterality: Not Applicable Type of Debridement: Excisional debridement Anesthesia Used: 4% Lidocaine Solution Depth: Down to and including healthy tissue, in the subcutaneous layer Percentage of wound debrided: 100 Instrument Used: 5mm curette Tissue Removed: devitalized tissue, yellow slough Severity: Fat Layer Exposed Amount of bleeding with debridement: Mild Bleeding Controlled with: Compression and gauze Patient tolerated procedure well Assessment/Plan Active Problems (Last Reviewed 11/19/17 @ 16:27 by Micky Mauro MD) Nonhealing surgical wound (Chronic) Open wound of lower back (Chronic) Cellulitis (Chronic) Chronic kidney disease (Chronic) Assessment: chronic surgical wound dehiscence lumbar with complex abscess and recent surgical debridement. malnutrition. other multiple comorbidities. edema bilateral lower extremities. Bleeding site from within wound controlled with combination of silver nitrate and Surgifoam. Bleeding appears to be controlled. venous insufficiency. immunocompromised status. Plan: Debridement done as documented above. Procedure was well-tolerated. Eighth application of Puraply was done today using 100% of product. Puraply was applied to the majority of the wound and Guera applied to center of wound. Covered with wound veil. Will continue to use gauze and ABDs with changes once-twice daily to the wound above the wound veil, leaving the wound veil in place. CT lumbar spine was negative for abscess but was concerning for possible metastatic lesion. Encouraged him to start antibiotics for positive wound culture. Continue increased protein intake. F/U in [address] Wick.
--- NOTE | 2018-02-28 18:00 | PN.PCM_ITS ---
(1) Nonhealing surgical wound Status: Chronic Current Visit: Yes Qualifiers: Encounter type: subsequent encounter Code(s): T81.89XA - Other complications of procedures, not elsewhere classified, initial encounter (2) Open wound of lower back Status: Chronic Current Visit: Yes Code(s): S31.000A - Unspecified open wound of lower back and pelvis without penetration into retroperitoneum, initial encounter (3) Cellulitis Status: Chronic Current Visit: Yes Qualifiers: Site of cellulitis: trunk Site of cellulitis of trunk: back Qualified Code(s): L03.312 - Cellulitis of back [any part except buttock] Code(s): L03.90 - Cellulitis, unspecified (4) Chronic kidney disease Status: Chronic Current Visit: Yes Qualifiers: Chronic kidney disease stage: stage 3 (moderate) Qualified Code(s): N18.3 - Chronic kidney disease, stage 3 (moderate) Code(s): N18.9 - Chronic kidney disease, unspecified Type of Wound Date of Service: 02/28/18 Chief Complaint: Nonhealing surgical wound of lower back History of Wound: Mr. Marshall is a 72-yo who has been seen here at the wound center for a nonhealing surgical wound of his lower back s/p surgical d ebridement for an abscess s/p lumbar spine surgery. His original surgery on his lower back was approximately 18 months ago and he has had multiple complications since that time. He underwent surgical debridement on 03/04/[address] Davila at [facility] in [place] and was discharged with a wound vac for healing by secondary intention with possible muscle flap closure in the future. He followed up with his surgeon on 04/18/17 for further evaluation and recommendations and they plan to close the wound with a muscle flap but he continues to develop infections. He is also being seen by Infectious Disease as needed. Progress of Wound: Cuong is here for follow-up of his nonhealing surgical wound of his lower back. He reports having a significant amount of increased pain in the last several weeks with some pain into his legs and left foot but denies any odor and reports less drainage. His was only having to change the dressing once daily. Has been using gauze and ABDs. Wound culture was positive for MRSA and he hasn't started antibiotics yet. Prescription for doxycycline 100 mg BID was called in to his pharmacy and he is aware that it is there for him to start. He has had 7 applications of Purapply. He had a CT of his lumbar spine on 02/24/18 which showed a sclerotic lesion in his right iliac wing that was concerning for metastatic bone lesion. He is undergoing further work up through his PCP. - Physical Exam Vital Signs Temp Pulse Resp BP 98.2 F 81 18 114/62 02/28/18 14:08 02/28/18 14:08 02/28/18 14:08 02/28/18 14:08 General: Alert, Oriented x3, Cooperative, No apparent distress HEENT: Atraumatic, Normocephalic Oral: Moist Mucosa Skin: Ulcer/ Wound Wound Measurements and Assessment WC - Nurse 1 - General Ulcer Measurement Start: 02/04/18 10:02 Freq: Status: Active Protocol: Activity Type Activity Date Activity User E-Sign Co-Sign Detail Recorded Client Recorded Date Recorded By Document 02/28/18 14:08 [id number] 02/28/18 14:10 02/28/18 14:08 Wound Center Nurse 1 [Ulcer Assessment] #9 Lower Lumbar- Midline -Combined with other wound No -Current Size (cm) - Length 14.2 -Current Size (cm) - Width 4.5 -Current Size (cm) - Depth 0.6 -Total Square Cm 63.90 -Photo Taken No -Epithelialization None Present -Tunneling No -Undermining/Tunneling No -Circular Undermining No -Classification - Thickness Full Thickness without Exposed Support Structure -Exudate Amt Medium (34-66%) -Exudate Type Serosanguineous -Wound Margin Distinct, Outline Attached -Granulation Amt Small (1-33%) -Granulation Quality Red -Slough/Fibrin Yes -Necrosis Amt Large (67-100%) -Necrotic Tissue Type Adherent Slough -Texture (Uma-wound Skin Appearance) Assessed Scarring -Moisture (Uma-wound Skin Appearance Assessed ) Maceration Weeping -Color (Uma-wound Skin Appearance) Assessed -Temperature (Uma-wound Skin No Abnormality Appearance) (Pt Warm) -Tenderness on Palpation (Uma-wound No Skin Appearance) -Ulcer Cleansing Rinsed/ Irrigated with Saline -Foul Odor after Cleansing No -Anesthetic Used 4% Lidocaine Solution WC - Nurse 2 - General Ulcer CM Notes Start: 02/04/18 10:02 Freq: Status: Active Protocol: Activity Type Activity Date Activity User E-Sign Co-Sign Detail Recorded Client Recorded Date Recorded By Document 02/28/18 14:09 MW [id number] 02/28/18 14:29 MW 02/28/18 14:09 Wound Center Nurse 2 [Procedure/Treatment] -Time 14:10 -Correct Patient Yes -Correct Side, Site, Position Yes -Correct Procedure Yes -Procedure Performed Yes -Type of Procedure Debridement -Clinical Debridement Subcutaneous -Post Debridement Size (cm) - Length 13.7 -Post Debridement Size (cm) - Width 4.5 -Post Debridement Size (cm) - Depth 0.5 -Total Square Cm 61.65 -Wound/Ulcer Outcome Not Healed -Ulcer Cleansing Rinsed/ Irrigated with Saline -Foul Odor after Cleansing No -Bioengineered Tissue Yes -Type of bioengineered Tissue [id number] -Expiration Date 07/25/20 -Product Lot Number [id number] -Percent Used 100 -Saline Lot Number [id number] -Bleeding Controlled with Pressure -Treatment Response Procedure Tolerated Well [See Physician Procedure note for Specifics] Pain Scale: 0-10 Numeric [Pain] -Is Patient Pain Free? Yes Psych/Mental Status: Normal Affect, Appropriate Debridement Note Post-Debridement Measurements/Treatment WC - Nurse 2 - General Ulcer CM Notes Start: 02/04/18 10:02 Freq: Status: Active Protocol: Activity Type Activity Date Activity User E-Sign Co-Sign Detail Recorded Client Recorded Date Recorded By Document 02/07/18 14:50 TM [id number] 02/07/18 14:57 Document 02/14/18 12:40 CS [id number] 02/14/18 12:54 CS Document 02/21/18 13:53 CS [id number] 02/21/18 14:24 CS Document 02/28/18 14:09 MW [id number] 02/28/18 14:29 MW 02/07/18 02/14/18 02/21/18 14:50 12:40 13:53 Wound Center Nurse 2 #9 Lower Lumbar- Midline -Time 14:50 12:40 13:54 -Correct Patient Yes Yes Yes -Correct Side, Site, Position Yes Yes Yes -Correct Procedure Yes Yes Yes -Procedure Performed Yes Yes Yes -Type of Procedure Debridement Debridement Debridement -Clinical Debridement Subcutaneous Subcutaneous Subcutaneous -Post Debridement Size (cm) - Length 13.8 13.8 13.8 -Post Debridement Size (cm) - Width 4.4 4.2 4.5 -Post Debridement Size (cm) - Depth 0.5 0.5 0.5 -Total Square Cm 60.72 57.96 62.10 -Wound/Ulcer Outcome Not Healed Healed- Graft Not Healed -Ulcer Cleansing Rinsed/ Not Cleansed Rinsed/ Irrigated with Irrigated with Saline Saline -Foul Odor after Cleansing No No No -Bioengineered Tissue Yes Yes -Type of bioengineered Tissue [id number] -Expiration Date 07/25/20 07/25/20 07/25/20 -Product Lot Number [id number] -Percent Used 100 100 100 -Saline Lot Number [id number] -Topical Lidocaine (%) 4 -Bleeding Controlled with Pressure Pressure SURGIFOAM SURGIFOAM -Treatment Response Procedure Procedure Procedure Tolerated Well Tolerated Well Tolerated Well Pain Scale: 0-10 Numeric Is Patient Pain Free? Yes No No 02/28/18 14:09 Wound Center Nurse 2 #9 Lower Lumbar- Midline -Time 14:10 -Correct Patient Yes -Correct Side, Site, Position Yes -Correct Procedure Yes -Procedure Performed Yes -Type of Procedure Debridement -Clinical Debridement Subcutaneous -Post Debridement Size (cm) - Length 13.7 -Post Debridement Size (cm) - Width 4.5 -Post Debridement Size (cm) - Depth 0.5 -Total Square Cm 61.65 -Wound/Ulcer Outcome Not Healed -Ulcer Cleansing Rinsed/ Irrigated with Saline -Foul Odor after Cleansing No -Bioengineered Tissue Yes -Type of bioengineered Tissue [id number] -Expiration Date 07/25/20 -Product Lot Number [id number] -Percent Used 100 -Saline Lot Number [id number] -Topical Lidocaine (%) -Bleeding Controlled with Pressure -Treatment Response Procedure Tolerated Well Pain Scale: 0-10 Numeric Is Patient Pain Free? Yes Wound debrided: lower lumbar midline Laterality: Not Applicable Type of Debridement: Excisional debridement Anesthesia Used: 4% Lidocaine Solution Depth: Down to and including healthy tissue, in the subcutaneous layer Percentage of wound debrided: 100 Instrument Used: 5mm curette Tissue Removed: devitalized tissue, yellow slough Severity: Fat Layer Exposed Amount of bleeding with debridement: Mild Bleeding Controlled with: Compression and gauze Patient tolerated procedure well Assessment/Plan Active Problems (Last Reviewed 11/19/17 @ 16:27 by Micky Mauro MD) Nonhealing surgical wound (Chronic) Open wound of lower back (Chronic) Cellulitis (Chronic) Chronic kidney disease (Chronic) Assessment: chronic surgical wound dehiscence lumbar with complex abscess and recent surgical debridement. malnutrition. other multiple comorbidities. edema bilateral lower extremities. Bleeding site from within wound controlled with combination of silver nitrate and Surgifoam. Bleeding appears to be controlled. venous insufficiency. immunocompromised status. Plan: Debridement done as documented above. Procedure was well-tolerated. Eighth application of Puraply was done today using 100% of product. Puraply was applied to the majority of the wound and Guera applied to center of wound. Covered with wound veil. Will continue to use gauze and ABDs with changes once- twice daily to the wound above the wound veil, leaving the wound veil in place. CT lumbar spine was negative for abscess but was concerning for possible metastatic lesion. Encouraged him to start antibiotics for positive wound culture. Continue increased protein intake. F/U in [address] Wick.
== END 2018-03-05 23:59 ==
LOC: WC 13:00
PROVIDERS: Family Provider Family Medicine; PCP Family Medicine; Visit Provider Family Medicine
DX: T81.30XA Disruption of wound, unspecified, initial encounter (principal); L03.312 Cellulitis of back [any part except buttock and flank]; Y83.8 Other surgical procedures as the cause of abnormal reaction of the patient, or of later complication, without mention of misadventure at the time of the procedure; I87.2 Venous insufficiency (chronic) (peripheral); N18.3 Chronic kidney disease, stage 3 (moderate); T81.49XA Infection following a procedure, other surgical site, initial encounter
CPT/HCPCS: 15271; 15272; 87070; 87075; 87077; 87205; 97608; 99212; 99213; Q4172; G0463

== ENCOUNTER → 2018-03-14 11:59 | Outpatient (CLI) | payer MEDICARE, OTHER, SELFPAY ==
[2015-10-31 10:00] VITALS: BMI 34.9
[2018-03-14 12:28] VITALS: BP 97/49; PULSE 64; RESP 18; TEMP 36.2; O2SAT 94; BMI 27.3
[2018-03-14 12:29] LABS: Absolute Lymphocyte Count 1.15 X10^3/ul (0.83-4.51); Absolute Neutrophil Count 4.2 X10^3/uL (2.0-7.7); Basophil# 0.04 X10^3/uL; Basophil% 0.6 % (0-1); Eosinophil# 0.25 X10^3/uL; Eosinophils% 3.7 % (0-5); Hematocrit 28.8 % (40-54); Hemoglobin 8.9 g/dl (13.0-16.5); Lymphocyte # 1.15 X10^3/ul (4.0); Lymphocyte % 17.2 % (19-41); Mean Corp Hgb Conc 30.9 g/gl (32-36); Mean Corpuscular Hgb 32.5 pg (27.0-32.0); Mean Corpuscular Volume 105.1 fL (80-94); Mean Platelet Vol. 9.4 fl (6.2-12.0); Monocyte# 1.01 X10^3/uL; Monocyte% 15.1 % (0-10); Neutrophil # 4.23 X10^3/uL (2.7-7.7); Neutrophil % 63.4 % (47-70); Platelet Count 220 K/mm3 (150-450); RBC Distribution Width CV 15.5 % (11.6-14.6); RBC Distribution Width SD 59.1 fl (35.1-43.9); Red Blood Count 2.74 M/mm3 (4.6-6.2); White Blood Count 6.7 K/mm3 (4.4-11.0)
[2018-03-14 12:33] LABS: POSITIVE COUNT NO; POSITIVE DIFFERENTIAL NO; POSITIVE MORPHOLOGY NO
[2018-03-14 12:49] LABS: Albumin, Serum 2.7 g/dL (3.2-5.0); BUN 57 mg/dL (7-18); BUN/Creat Ratio 36.3 RATIO (10-20); Calcium,Total 8.2 mg/dL (8.5-10.1); Chloride 103 mmol/L (98-107); Creatinine, Serum 1.57 mg/dL (0.70-1.30); EST Glomerular Filtration Rate 46 mL/min (>60); Est Glom Filt Rate - Afr Amer 56 mL/min (>60); Estimated Creatinine Clearance 40.54 ml/min; Glucose 98 mg/dL (74-106); Phosphorus 3.2 mg/dL (2.5-4.9); Potassium 3.8 mmol/L (3.5-5.1); Sodium Level 140 mmol/L (136-145)
== END ==
PROVIDERS: Family Provider Family Medicine; PCP Family Medicine; Referring Provider Internal Medicine Nephrology; Visit Provider Internal Medicine Nephrology
DX: N18.3 Chronic kidney disease, stage 3 (moderate) (principal); D63.1 Anemia in chronic kidney disease
CPT/HCPCS: 36415; 80069; 85025; 96372; J0885

== ENCOUNTER → 2018-04-03 12:14 | Outpatient (CLI) | payer MEDICARE, OTHER, SELFPAY ==
[2015-10-31 10:00] VITALS: BMI 34.9
[2018-03-25 14:58] VITALS: BMI 56.5
[2018-04-03 13:47] LABS: Hematocrit 28.2 % (40-54); Hemoglobin 8.8 g/dl (13.0-16.5); Mean Corp Hgb Conc 31.2 g/gl (32-36); Mean Corpuscular Volume 108.9 fL (80-94); Platelet Count 348 K/mm3 (150-450); RBC Distribution Width CV 17.4 % (11.6-14.6); RBC Distribution Width SD 66.2 fl (35.1-43.9); Red Blood Count 2.59 M/mm3 (4.6-6.2); White Blood Count 5.9 K/mm3 (4.4-11.0)
[2018-04-03 13:49] LABS: Scan Indicated on CBC? Y/N YES- FLAGS NOTED
[2018-04-03 14:15] LABS: Differential Comment SCANNED
[2018-04-03 14:19] LABS: BUN 35 mg/dL (7-18); BUN/Creat Ratio 29.4 RATIO (10-20); Calcium,Total 8.4 mg/dL (8.5-10.1); Chloride 106 mmol/L (98-107); Creatinine, Serum 1.19 mg/dL (0.70-1.30); EST Glomerular Filtration Rate 64 mL/min (>60); Est Glom Filt Rate - Afr Amer 77 mL/min (>60); Glucose 86 mg/dL (74-106); Phosphorus 2.8 mg/dL (2.5-4.9); Potassium 4.2 mmol/L (3.5-5.1); Sodium Level 139 mmol/L (136-145)
[2018-04-03 14:22] LABS: PTHIN 97.1 pg/mL (18.4-80.1); Vitamin D,25 Hydroxy 15.7 ng/mL (29.95-100.01)
--- OUTSIDE RECORDS SUMMARY | 2018-05-29 15:27 | XMS RPT_ITS ---
:1945 Author Organization OHIP Support Name Relationship Address Phone R Unavailable Unavailable Unavailable SIMONE, KAMILAH Unavailable [address] + [place] [address] R Unavailable Unavailable Unavailable SIMONE, KAMILAH Unavailable [address] + [place] [address] R Unavailable Unavailable Unavailable SIMONE, KAMILAH Unavailable [address] + [place] [address] R Unavailable Unavailable Unavailable SIMONE, KAMILAH Unavailable [address] + [place] [address] R Unavailable Unavailable Unavailable SIMONE, KAMILAH Unavailable [address] + [place] [address] R Unavailable Unavailable Unavailable SIMONE, KAMILAH Unavailable [address] + [place] [address] R Unavailable Unavailable Unavailable SIMONE, KAMILAH Unavailable [address] + [place] [address] R Unavailable Unavailable Unavailable SIMONE, KAMILAH Unavailable [address] + [place] [address] R Unavailable Unavailable Unavailable SIMONE, KAMILAH Unavailable [address] + [place] [address] R Unavailable Unavailable Unavailable SIMONE, KAMILAH Unavailable [address] + [place] [address] R Unavailable Unavailable Unavailable SIMONE, KAMILAH Unavailable [address] + [place] [address] R Unavailable Unavailable Unavailable SIMONE, KAMILAH Unavailable [address] + [place] [address] R Unavailable Unavailable Unavailable SIMONE, KAMILAH Unavailable [address] + [place] [address] R Unavailable Unavailable Unavailable SIMONE, KAMILAH Unavailable [address] + [place] [address] R Unavailable Unavailable Unavailable SIMONE, KAMILAH Unavailable [address] + [place] [address] R Unavailable Unavailable Unavailable SIMONE, KAMILAH Unavailable [address] + [place] [address] R Unavailable Unavailable Unavailable SIMONE, KAMILAH Unavailable [address] + [place] [address] R Unavailable Unavailable Unavailable SIMONE, KAMILAH Unavailable [address] + [place] [address] R Unavailable Unavailable Unavailable SIMONE, KAMILAH Unavailable [address] + [place] [address] R Unavailable Unavailable Unavailable SIMONE, KAMILAH Unavailable [address] + [place] [address] R Unavailable Unavailable Unavailable SIMONE, KAMILAH Unavailable [address] + [place] [address] R Unavailable Unavailable Unavailable SIMONE, KAMILAH Unavailable [address] + [place] [address] R Unavailable Unavailable Unavailable SIMONE, KAMILAH Unavailable [address] + [place] [address] R Unavailable Unavailable Unavailable SIMONE, KAMILAH Unavailable [address] + [place] [address] R Unavailable Unavailable Unavailable SIMONE, KAMILAH Unavailable [address] + [place] [address] R Unavailable Unavailable Unavailable SIMONE, KAMILAH Unavailable [address] + [place] [address] SIMONE, KAMILAH Unavailable Unavailable Unavailable SIMONE, CUONG Unavailable Unavailable Unavailable R Unavailable Unavailable Unavailable SIMONE, KAMILAH Unavailable [address] + [place] [address] R Unavailable Unavailable Unavailable SIMONE, KAMILAH Unavailable [address] + [place] [address] SIMONE, KAMILAH Unavailable Unavailable Unavailable SIMONE, CUONG Unavailable Unavailable Unavailable R Unavailable Unavailable Unavailable SIMONE, KAMILAH Unavailable [address] + [place] [address] R Unavailable Unavailable Unavailable SIMONE, KAMILAH Unavailable [address] + [place] [address] R Unavailable Unavailable Unavailable SIMONE, KAMILAH Unavailable [address] + [place] [address] R Unavailable Unavailable Unavailable SIMONE, KAMILAH Unavailable [address] + [place] [address] R Unavailable Unavailable Unavailable SIMONE, KAMILAH Unavailable [address] + [place] [address] R Unavailable Unavailable Unavailable SIMONE, KAMILAH Unavailable [address] + [place] [address] R Unavailable Unavailable Unavailable SIMONE, KAMILAH Unavailable [address] + [place] [address] R Unavailable Unavailable Unavailable SIMONE, KAMILAH Unavailable [address] + [place] [address] R Unavailable Unavailable Unavailable SIMONE, KAMILAH Unavailable [address] + [place] [address] R Unavailable Unavailable Unavailable SIMONE, KAMILAH Unavailable [address] + [place] [address] R Unavailable Unavailable Unavailable SIMONE, KAMILAH Unavailable [address] + [place] [address] R Unavailable Unavailable Unavailable SIMONE, KAMILAH Unavailable [address] + [place] [address] R Unavailable Unavailable Unavailable SIMONE, KAMILAH Unavailable [address] + [place] [address] R Unavailable Unavailable Unavailable SIMONE, KAMILAH Unavailable [address] + [place] [address] R Unavailable Unavailable Unavailable SIMONE, KAMILAH Unavailable [address] + [place] [address] R Unavailable Unavailable Unavailable SIMONE, KAMILAH Unavailable [address] + [place] [address] R Unavailable Unavailable Unavailable SIMONE, KAMILAH Unavailable [address] + [place] [address] R Unavailable Unavailable Unavailable SIMONE, KAMILAH Unavailable [address] + [place] [address] R Unavailable Unavailable Unavailable SIMONE, KAMILAH Unavailable [address] + [place] [address] R Unavailable Unavailable Unavailable SIMONE, KAMILAH Unavailable [address] + [place] [address] SIMONE, KAMILAH Unavailable Unavailable Unavailable SIMONE, CUONG Unavailable Unavailable Unavailable R Unavailable Unavailable Unavailable SIMONE, KAMILAH Unavailable [address] + [place] [address] R Unavailable Unavailable Unavailable SIMONE, KAMILAH Unavailable [address] + [place] [address] R Unavailable Unavailable Unavailable SIMONE, KAMILAH Unavailable [address] + [place] [address] R Unavailable Unavailable Unavailable SIMONE, KAMILAH Unavailable [address] + [place] [address] R Unavailable Unavailable Unavailable SIMONE, KAMILAH Unavailable [address] + [place] [address] R Unavailable Unavailable Unavailable SIMONE, KAMILAH Unavailable [address] + [place] [address] R Unavailable Unavailable Unavailable SIMONE, KAMILAH Unavailable [address] + [place] [address] R Unavailable Unavailable Unavailable SIMONE, KAMILAH Unavailable [address] + [place] [address] R Unavailable Unavailable Unavailable SIMONE, KAMILAH Unavailable [address] + [place] [address] R Unavailable Unavailable Unavailable SIMONE, KAMILAH Unavailable [address] + [place] [address] R Unavailable Unavailable Unavailable SIMONE, KAMILAH Unavailable [address] + [place] [address] R Unavailable Unavailable Unavailable SIMONE, KAMILAH Unavailable [address] + [place] [address] R Unavailable Unavailable Unavailable SIMONE, KAMILAH Unavailable [address] + [place] [address] R Unavailable Unavailable Unavailable SIMONE, KAMILAH Unavailable [address] + [place] [address] R Unavailable Unavailable Unavailable SIMONE, KAMILAH Unavailable [address] + [place] [address] R Unavailable Unavailable Unavailable SIMONE, KAMILAH Unavailable [address] + [place] [address] R Unavailable Unavailable Unavailable SIMONE, KAMILAH Unavailable [address] + [place] [address] R Unavailable Unavailable Unavailable SIMONE, KAMILAH Unavailable [address] + [place] [address] R Unavailable Unavailable Unavailable SIMONE, KAMILAH Unavailable [address] + [place] [address] R Unavailable Unavailable Unavailable SMIONE, KAMILAH Unavailable [address] + [place] [address] SIMONE, KAMILAH Unavailable Unavailable Unavailable SIMONE, CUONG Unavailable Unavailable Unavailable R Unavailable Unavailable Unavailable SIMONE, KAMILAH Unavailable [address] + [place] [address] R Unavailable Unavailable Unavailable SIMONE, KAMILAH Unavailable [address] + [place] [address] R Unavailable Unavailable Unavailable SIMONE, KAMILAH Unavailable [address] + [place] [address] R Unavailable Unavailable Unavailable SIMONE, KAMILAH Unavailable [address] + [place] [address] R Unavailable Unavailable Unavailable SIMONE, KAMILAH Unavailable [address] + [place] [address] R Unavailable Unavailable Unavailable SIMONE, KAMILAH Unavailable [address] + [place] [address] R Unavailable Unavailable Unavailable SIMONE, KAMILAH Unavailable [address] + [place] [address] R Unavailable Unavailable Unavailable SIMONE, KAMILAH Unavailable [address] + [place] [address] R Unavailable Unavailable Unavailable SIMONE, KAMILAH Unavailable [address] + [place] [address] R Unavailable Unavailable Unavailable SIMONE, KAMILAH Unavailable [address] + [place] [address] R Unavailable Unavailable Unavailable SIMONE, KAMILAH Unavailable [address] + [place] [address] R Unavailable Unavailable Unavailable SIMONE, KAMILAH Unavailable [address] + [place] [address] R Unavailable Unavailable Unavailable SIMONE, KAMILAH Unavailable [address] + [place] [address] R Unavailable Unavailable Unavailable SIMONE, KAMILAH Unavailable [address] + [place] [address] R Unavailable Unavailable Unavailable SIMONE, KAMILAH Unavailable [address] + [place] [address] R Unavailable Unavailable Unavailable SIMONE, KAMILAH Unavailable [address] + [place] [address] R Unavailable Unavailable Unavailable SIMONE, KAMILAH Unavailable [address] + [place] [address] R Unavailable Unavailable Unavailable SIMONE, KAMILAH Unavailable [address] + [place] [address] R Unavailable Unavailable Unavailable SIMONE, KAMILAH Unavailable [address] + [place] [address] SIMONE, KAMILAH Unavailable Unavailable Unavailable SIMONE, CUONG Unavailable Unavailable Unavailable SIMONE, KAMILAH Unavailable Unavailable Unavailable SIMONE, CUONG Unavailable Unavailable Unavailable R Unavailable Unavailable Unavailable SIMONE, KAMILAH Unavailable [address] + [place] [address] R Unavailable Unavailable Unavailable SIMONE, KAMILAH Unavailable [address] + [place] [address] R Unavailable Unavailable Unavailable SIMONE, KAMILAH Unavailable [address] + [place] [address] SIMONE, KAMILAH Unavailable Unavailable Unavailable SIMONE, CUONG Unavailable Unavailable Unavailable R Unavailable Unavailable Unavailable SIMONE, KAMILAH Unavailable [address] + [place] [address] SIMONE, KAMILAH Unavailable Unavailable Unavailable SIMONE, CUONG Unavailable Unavailable Unavailable R Unavailable Unavailable Unavailable SIMONE, KAMILAH Unavailable [address] + [place] [address] R Unavailable Unavailable Unavailable SIMONE, KAMILAH Unavailable [address] + [place] [address] R Unavailable Unavailable Unavailable SIMONE, KAMILAH Unavailable [address] + [place] [address] Care Team Providers Name Role Phone KVNG, XANDER Admitting Unavailable CHANDAWARKAR, XANDER Attending Unavailable CHANDMARIALUISA, XANDER Referring Unavailable LEXALINUS MALAVE A Primary Care Unavailable KVNG, XANDER Attending Unavailable SELF, SELF Referring Unavailable LEXA, LINUS A Primary Care Unavailable CHANDMARIALUISA, XANDER Attending Unavailable CHANDMICHELLERHARSHA, XANDER Referring Unavailable LEXA LINUS A Primary Care Unavailable KENTRELL MANCIA Attending Unavailable CHANDMARIALUISA, XANDER Referring Unavailable LEAXLINUS MALAVE A Primary Care Unavailable JAN DUMONT Referring Unavailable LEXA, LINUS A Primary Care Unavailable RADHA CALDERA Admitting Unavailable CONSULT, INFECTIOUS DISEASE Consulting Unavailable DAVY MANDUJANO Attending Unavailable KVNG, XANDER Attending Unavailable LINUS LINDQUIST A Referring Unavailable LEXALINUS MALAVE A Primary Care Unavailable KVNG, XANDER Attending Unavailable SELF, SELF Referring Unavailable LEXA, LINUS A Primary Care Unavailable MYLESAWARHARSHA, XANDER Attending Unavailable SELF, SELF Referring Unavailable LEXALINUS MALAVE A Primary Care Unavailable JAQUI MOREAU, DR. ANGELO Khalil Attending Unavailable JAQUI MOREAU, DR. ANGELO Khalil Referring Unavailable LEXA DO, DR. LINUS Khalil. Primary Care Unavailable SREEDHAR BLEVINS Attending Unavailable LEXALINUS MALAVE A Referring Unavailable KALPANA SKINNER Attending Unavailable Zunilda, Micky Attending Unavailable Zunilda Micky Referring Unavailable Lexa Linus Primary Care Unavailable Monica Wick Attending Unavailable Lexa, Linus Primary Care Unavailable Yancy, Jayaprakash Attending Unavailable Yancy, Jayaprakash Referring Unavailable Lexa, Linus Primary Care Unavailable Oleghe, Efewongbe Attending Unavailable Micky Mauro Attending Unavailable Yancy, Jayaprakash Attending Unavailable Yancy, Jayaprakash Referring Unavailable Lexa, Linus Primary Care Unavailable Yancy, Jayaprakash Attending Unavailable Yancy, Jayaprakash Referring Unavailable Lexa, Linus Primary Care Unavailable Malys, Monica Attending Unavailable Lexa, Linus Primary Care Unavailable Yancy, Jayaprakash Attending Unavailable Yancy, Jayaprakash Referring Unavailable Lexa, Linus Primary Care Unavailable Yancy, Jayaprakash Attending Unavailable Yancy, Jayaprakash Referring Unavailable Lexa, Linus Primary Care Unavailable Malys, Monica Attending Unavailable Malys, Monica Referring Unavailable Lexa, Linus Primary Care Unavailable Yancy, Jayaprakash Attending Unavailable Yancy, Jayaprakash Referring Unavailable Lexa, Linus Primary Care Unavailable Malys, Monica Attending Unavailable Lexa, Linus Primary Care Unavailable Oleghe, Efewongbe Attending Unavailable Oleghe, Efewongbe Referring Unavailable Yancy, Jayaprakash Attending Unavailable Yancy, Jayaprakash Referring Unavailable Lexa, Linus Primary Care Unavailable Oleghe, Efewongbe Attending Unavailable Oleghe, Efewongbe Referring Unavailable Malys, Monica Attending Unavailable Malys, Monica Referring Unavailable Lexa, Linus Primary Care Unavailable Malys, Monica Attending Unavailable Malys, Monica Referring Unavailable Lexa, Linus Primary Care Unavailable Malys, Monica Attending Unavailable Lexa, Linus Primary Care Unavailable Malys, Monica Referring Unavailable Lexa, Linus Attending Unavailable Lexa, Linus Primary Care Unavailable Yancy, Jayaprakash Attending Unavailable Yancy, Jayaprakash Referring Unavailable Lexa, Linus Primary Care Unavailable Malys, Monica Attending Unavailable Lexa, Linus Primary Care Unavailable Malys, Monica Referring Unavailable Yancy, Jayaprakash Attending Unavailable Yancy, Jayaprakash Referring Unavailable Lexa, Linus Primary Care Unavailable Yancy, Jayaprakash Attending Unavailable Lexa, Linus Primary Care Unavailable Yancy, Jayaprakash Referring Unavailable Yancy, Jayaprakash Attending Unavailable Yancy, Jayaprakash Referring Unavailable Lexa, Linus Primary Care Unavailable Fanny Spencer Attending Unavailable Malys, Monica Referring Unavailable Lexa, Linus Primary Care Unavailable Malys, Monica Consulting Unavailable Malys, Monica Attending Unavailable Malys, Monica Referring Unavailable Lexa, Linus Primary Care Unavailable Yancy, Jayaprakash Attending Unavailable Yancy, Jayaprakash Referring Unavailable Lexa, Linus Primary Care Unavailable Lexa, Linus Primary Care Unavailable Malys, Monica Attending Unavailable Lexa, Linus Attending Unavailable Lexa, Linus Primary Care Unavailable Yancy, Jayaprakash Attending Unavailable Lexa, Linus Primary Care Unavailable Yancy, Jayaprakash Attending Unavailable Yancy, Jayaprakash Referring Unavailable Lexa, Linus Primary Care Unavailable Malys, Monica Attending Unavailable Lexa, Linus Primary Care Unavailable Yancy, Jayaprakash Attending Unavailable Lexa, Linus Primary Care Unavailable Yancy, Jayaprakash Referring Unavailable Yancy, Jayaprakash Attending Unavailable Yancy, Jayaprakash Referring Unavailable Lexa, Linus Primary Care Unavailable Malys, Monica Attending Unavailable Lexa, Linus Primary Care Unavailable Yancy, Jayaprakash Attending Unavailable Yancy, Jayaprakash Referring Unavailable Lexa, Linus Primary Care Unavailable Lexa, Linus Primary Care Unavailable Myles, Cisco Admitting Unavailable Farooq Cook Consulting Unavailable Ady Dumont Attending Unavailable Zunilda, Micky Consulting Unavailable Barrera Mendes, D.O. Consulting Unavailable Dari Oleary Consulting Unavailable Jonathan Rogers Consulting Unavailable Dimas Major Consulting Unavailable Myles, Cisco Admitting Unavailable Solitario Poon Attending Unavailable Lexa, Linus Primary Care Unavailable Zunilda, Micky Consulting Unavailable Barrera Mendes, D.O. Consulting Unavailable Myles, Cisco Consulting Unavailable Myles, Cisco Admitting Unavailable Abbey Pina Attending Unavailable Lexa, Linus Primary Care Unavailable Zunilda, [place] Consulting Unavailable Barrera Mendes, D.O. Consulting Unavailable Myles, Cisco Consulting Unavailable Myles, Cisco Admitting Unavailable Myles, Cisco Attending Unavailable Lexa, Linus Primary Care Unavailable Zunilda, [place] Consulting Unavailable Barrera Mendes, D.O. Consulting Unavailable Myles, Cisco Consulting Unavailable Myles, Cisco Admitting Unavailable Barrera Mendes D.O. Attending Unavailable [facility] Primary Care Unavailable Zunilda, Micky Consulting Unavailable Olivier Paul.Anamaria. Consulting Unavailable Bakhous, Aziz Consulting Unavailable Ken, Jonathan Consulting Unavailable Slaby, Farooq Consulting Unavailable Myles, Cisco Consulting Unavailable Myles, Cisco Admitting Unavailable Cleve, Solitario Attending Unavailable [facility] Primary Care Unavailable Zunilda, Micky Consulting Unavailable Olivier Paul.O. Consulting Unavailable Bakhous, Aziz Consulting Unavailable Ken, Jonathan Consulting Unavailable Slaby, Farooq Consulting Unavailable Myles, Cisco Consulting Unavailable Myles, Cisco Admitting Unavailable Myles, Cisco Attending Unavailable [facility] Primary Care Unavailable Zunilda, [place] Consulting Unavailable Olivier Paul.O. Consulting Unavailable Bakhous, Aziz Consulting Unavailable Ken, Jonathan Consulting Unavailable Slaby, Faroo[place] Consulting Unavailable Myles, Cisco Consulting Unavailable Myles, Cisco Admitting Unavailable Olivier Paul.O. Attending Unavailable [facility] Primary Care Unavailable Zunilda, Micky Consulting Unavailable Olivier Paul.O. Consulting Unavailable Bakhous, Aziz Consulting Unavailable Ken, Jonathan Consulting Unavailable Slaby, Faroo[place] Consulting Unavailable Myles, Cisco Consulting Unavailable Myles, Cisco Admitting Unavailable Cleve, Solitario Attending Unavailable [facility] Primary Care Unavailable Slaby, [place] Consulting Unavailable Zunilda, [place] Consulting Unavailable Olivier Paul.O. Consulting Unavailable Bakhous, Aziz Consulting Unavailable Ken, Jonathan Consulting Unavailable Myles, Cisco Consulting Unavailable Myles, Cisco Admitting Unavailable Myles, Cisco Attending Unavailable [facility] Primary Care Unavailable Slaby, [place] Consulting Unavailable Zunilda, Micky Consulting Unavailable Olivier Paul.O. Consulting Unavailable Bakhous, Aziz Consulting Unavailable Ken, Jonathan Consulting Unavailable Myles, Cisco Consulting Unavailable Myles, Cisco Admitting Unavailable Marion Hutchison NP-C Attending Unavailable [facility] Primary Care Unavailable Slaby, [place] Consulting Unavailable Zunilda, [place] Consulting Unavailable Olivier Paul.O. Consulting Unavailable Bakhous, Aziz Consulting Unavailable Ken, Jonathan Consulting Unavailable Ady Dumont Consulting Unavailable Myles, Cisco Admitting Unavailable Javier Pat Attending Unavailable Lexa, Linus Primary Care Unavailable Slaby, [place] Consulting Unavailable Zunilda, Micky Consulting Unavailable Barrera Mendes, D.O. Consulting Unavailable Bakhous, Aziz Consulting Unavailable Ken, Jonathan Consulting Unavailable Jopperi, Ady Consulting Unavailable [facility] Admitting Unavailable Jopperi, Ady Attending Unavailable Lexa, Linus Primary Care Unavailable Slaby, [place] Consulting Unavailable Zunilda, Micky Consulting Unavailable Barrera Brown, D.O. Consulting Unavailable Bakhous, Aziz Consulting Unavailable Ken, Jonathan Consulting Unavailable Jopperi, Ady Consulting Unavailable [facility] Admitting Unavailable Jopperi, Day Attending Unavailable Lexa, Linus Primary Care Unavailable Slaby, [place] Consulting Unavailable Zunilda, Micky Consulting Unavailable Barrera Brown, D.O. Consulting Unavailable Bakhous, Aziz Consulting Unavailable Ken, Jonathan Consulting Unavailable Moriah, Dimas Consulting Unavailable Jopperi, Ady Consulting Unavailable [facility] Admitting Unavailable Joey Farooq Attending Unavailable Leax, Linus Primary Care Unavailable Slaby, [place] Consulting Unavailable Zunilda, Micky Consulting Unavailable Barrera Brown, D.O. Consulting Unavailable Bakhous, Aziz Consulting Unavailable Ken, Jonathan Consulting Unavailable Moriah, Dimas Consulting Unavailable Jopperi, Ady Consulting Unavailable [facility] Admitting Unavailable Jopperi, Ady Attending Unavailable Lexa, Linus Primary Care Unavailable Slaby, Farooq Consulting Unavailable Zunilda, [place] Consulting Unavailable Barrera Vaughn, D.O. Consulting Unavailable Bakhous, Aziz Consulting Unavailable Ken, Jonathan Consulting Unavailable Moriah, Dimas Consulting Unavailable Jopperi, Ady Consulting Unavailable Monica Wick Attending Unavailable Lexa, Linus Primary Care Unavailable Honorio, Frank Chi Admitting Unavailable Honorio, Frank Chi Attending Unavailable Lexa, Linus Primary Care Unavailable Dimas Major Consulting Unavailable Dimas Major Attending Unavailable Lexa, Linus Primary Care Unavailable Dimas Major Referring Unavailable Lexa, Linus Primary Care Unavailable Lucius Nevarez Attending Unavailable Marzena Jackson Attending Unavailable Dimas Major Attending Unavailable Dimas Major Referring Unavailable Lexa, Linus Primary Care Unavailable Dimas Major Attending Unavailable Dimas Major Referring Unavailable Lexa, Linus Primary Care Unavailable Dimas Major Attending Unavailable Yancy, Jayaprakash Attending Unavailable Yancy, Jayaprakash Referring Unavailable Lexa, Linus Primary Care Unavailable Lexa, Linus Primary Care Unavailable Andi Arnett Attending Unavailable Abbey Pina Attending Unavailable Myles, Cisco Referring Unavailable Farooq Cook Attending Unavailable Myles, Cisco Referring Unavailable Lexa, Linus Primary Care Unavailable Oleghe, Efewongbe Attending Unavailable Dimas Major Attending Unavailable Dimas Major Referring Unavailable Lexa, Linus Primary Care Unavailable Yancy, Jayaprakash Attending Unavailable Yancy, Jayaprakash Referring Unavailable Lexa, Linus Primary Care Unavailable Yancy, Jayaprakash Attending Unavailable Yancy, Jayaprakash Referring Unavailable Lexa, Linus Primary Care Unavailable Jeanne Suggs Attending Unavailable Oleghe, Efewongbe Attending Unavailable Oleghe, Efewongbe Referring Unavailable Marzena Jackson Attending Unavailable Micky Mauro Attending Unavailable Lexa, Linus Referring Unavailable Lexa, Linus Primary Care Unavailable Lexa, Linus Attending Unavailable Yancy, Jayaprakash Attending Unavailable Yancy, Jayaprakash Referring Unavailable Lexa, Linus Primary Care Unavailable Oleghe, Efewongbe Attending Unavailable Lexa, Linus Primary Care Unavailable Oleghe, Efewongbe Attending Unavailable Oleghe, Efewongbe Referring Unavailable Oleghe, Efewongbe Attending Unavailable Oleghe, Efewongbe Referring Unavailable Yancy, Jayaprakash Attending Unavailable Yancy, Jayaprakash Referring Unavailable Lexa, Linus Primary Care Unavailable Yancy, Jayaprakash Attending Unavailable Yancy, Jayaprakash Referring Unavailable Lexa, Linus Primary Care Unavailable Oleghe, Efewongbe Attending Unavailable Oleghe, Efewongbe Referring Unavailable Oleghe, Efewongbe Attending Unavailable Oleghe, Efewongbe Referring Unavailable Oleghe, Efewongbe Attending Unavailable Oleghe, Efewongbe Referring Unavailable Oleghe, Efewongbe Attending Unavailable Oleghe, Efewongbe Referring Unavailable Lexa, Linus Primary Care Unavailable Monica Wick Attending Unavailable Yancy, Jayaprakash Attending Unavailable Yancy, Jayaprakash Referring Unavailable Lexa, Linus Primary Care Unavailable Yancy, Jayaprakash Attending Unavailable Yancy, Jayaprakash Referring Unavailable Lexa, Linus Primary Care Unavailable Malys, Monica Attending Unavailable Lexa, Linus Primary Care Unavailable Yancy, Jayaprakash Attending Unavailable Yancy, Jayaprakash Referring Unavailable Lexa, Linus Primary Care Unavailable Oleghe, Efewongbe Attending Unavailable Oleghe, Efewongbe Referring Unavailable Oleghe, Efewongbe Attending Unavailable Oleghe, Efewongbe Referring Unavailable Oleghe, Efewongbe Attending Unavailable Oleghe, Efewongbe Referring Unavailable Zunilda, [place] Attending Unavailable Lexa, Linus Referring Unavailable Lexa, Linus Primary Care Unavailable Yancy, Jayaprakash Attending Unavailable Yancy, Jayaprakash Referring Unavailable Lexa, Linus Primary Care Unavailable PROBLEMS PROBLEMS DATE TYPE CONDITION / CODE ATTENDING STATUS SOURCE Unknown D63.1 - Anemia in Yancy, Active [place] chronic kidney disease / [facility] D63.1(ICD-10) Hospital Repository Unknown T81.30XA - Disruption of Monica Wick Active [place] 8 wound, unspecified, Community initial encounter / Hospital T81.30XA(ICD-10) Repository Unknown N18.3 - Chronic kidney Yancy, Active [place] 8 disease, stage 3 [facility] (moderate) / Hospital N18.3(ICD-10) Repository Unknown D64.9 - Anemia, Yancy, Active [place] 8 unspecified / [facility] D64.9(ICD-10) Hospital Repository Unknown T81.4XXA - Infection Monica Wick Active [place] 8 following a procedure, Community initial encounter / Hospital T81.4XXA(ICD-10) Repository Unknown T81.89XA - Other Oleghe, Active [place] 8 complications of [facility] procedures, not Hospital elsewhere classified, Repository initial encounter / T81.89XA(ICD-10) Unknown S31.000A - Unspecified Oleghe, Active [place] 8 open wound of lower back [facility] Community and pelvis without Hospital penetration into Repository retroperitoneum, initial encounter / S31.000A(ICD-10) Unknown K52.9 - Noninfective Malys, Monica Active [place] 8 gastroenteritis and Community colitis, unspecified / Hospital K52.9(ICD-10) Repository Admitting Follow-up / 145() KVNG, Active [place] [facility] 8 diagnosis [facility] Repository Unknown R06.09 - Other forms of Zunilda, [place] Active [place] 8 dyspnea / R06.09(ICD-10) Community Hospital Repository Unknown 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, 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 / Community I42.0(ICD-10) Hospital Repository Unknown I10 - Essential Zunilda, [place] Active [place] [facility] (primary) hypertension / Community I10(ICD-10) Hospital Repository Unknown I48.0 - Paroxysmal Zunilda, Micky Active [place] 8 atrial fibrillation / Community I48.0(ICD-10) Hospital Repository Unknown E78.00 - Pure Zunilda, [place] Active [place] 8 hypercholesterolemia, Community unspecified / Hospital E78.00(ICD-10) Repository Unknown 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, [place]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 Community hypertension / Hospital I27.21(ICD-10) Repository Unknown I50.32 - Chronic Zunilda, [place] Active [place] 8 diastolic (congestive) Community heart failure / Hospital I50.32(ICD-10) Repository Unknown E78.0 - Pure Zunilda, Micky Active [place] 8 hypercholesterolemia / Community E78.0(ICD-10) Hospital Repository Unknown A41.9 - Sepsis, Moriah, Active [place] 8 unspecified organism / [facility] A41.9(ICD-10) Hospital Repository Unknown Z00.00 - Encounter for Moriah, Active [place] 8 general adult medical [facility] examination without Hospital abnormal findings / Repository Z00.00(ICD-10) Unknown 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 8 diagnosis unspecified organism University ([facility]) / J18.1(ICD-10) [facility] Repository Admitting Acute systolic DAVY MANDUJANO Active [facility] 8 diagnosis (congestive) heart University failure (HCC) / [facility] I50.21(ICD-10) Center Repository Admitting Pasteurellosis / HUMBERTO MANDUJANO Active [facility] 8 diagnosis A28.0(ICD-10) [facility] Repository Admitting Intraspinal abscess and DAVY MANDUJANO [facility] 8 diagnosis granuloma / University G06.1(ICD-10) [facility] Repository Admitting Sepsis, unspecified DAVY MANDUJANO [facility] 8 diagnosis organism ([facility]) / University A41.9(ICD-10) [facility] Repository Admitting Other specified DAVY MANDUJANO [facility] 8 diagnosis postprocedural states / University Z98.890(ICD-10) [facility] Repository Admitting Other injury of DAVY MANDUJANO Active [place] [address] diagnosis unspecified body region, University initial encounter / [facility] T14.8XXA(ICD-10) Center Repository Admitting Local infection of the DAVY MANDUJANO Active [facility] 8 diagnosis skin and subcutaneous University tissue, unspecified / [facility] L08.9(ICD-10) Center Repository Admitting [facility]specified [facility] ([facility] / University K74.60(ICD-10) [facility] Repository Admitting Infection following a DAVY MANDUJANO Active [place] [facility] 8 diagnosis procedure, subsequent University encounter / [facility] T81.4XXD(ICD-10) Center Repository Admitting Non-Hodgkin lymphoma, [place] [address] diagnosis unspecified, unspecified University site (HCC) / [facility] C85.90(ICD-10) Center Repository Admitting Alcoholic cirrhosis of [place] [address] diagnosis liver with ascites (HCC) [facility] [place] / K70.31(ICD-10) [facility] Repository Admitting Alcohol dependence, [place] [address] diagnosis uncomplicated (HCC) / University F10.20(ICD-10) [facility] Repository Admitting Chronic kidney disease, [place] [address] diagnosis unspecified / [facility] [place] N18.9(ICD-10) [facility] Repository Admitting Chronic kidney disease, [place] [address] diagnosis stage 3 (moderate) / [facility] [place] N18.3(ICD-10) [facility] Repository Admitting Paroxysmal atrial [place] [address] diagnosis fibrillation (HCC) / [facility] [place] I48.0(ICD-10) [facility] Repository Admitting Abnormal levels of other [place] [address] diagnosis serum enzymes / [facility] [place] R74.8(ICD-10) [facility] Repository Admitting 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 / Center I25.10(ICD-10) Repository Admitting Personal history of DAVY MANDUJANO [place] [address] diagnosis pulmonary embolism / [facility] [place] Z86.711(ICD-10) [facility] Repository Admitting Personal history of DAVY MANDUJANO [place] [address] diagnosis other venous thrombosis University and embolism / [facility] Z86.718(ICD-10) Center Repository Unknown 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 Hospital involvement without Repository evidence of necrosis / L98.496(ICD-10) Unknown T66.XXXS - Radiation Farooq Cook Active [place] 8 sickness, unspecified, Community sequela / Hospital T66.XXXS(ICD-10) Repository Unknown M79.89 - Other specified Farooq Cook Active [place] 8 soft tissue disorders / Community M79.89(ICD-10) Hospital Repository Unknown M54.5 - Low back pain / Farooq Cook Active [place] 8 M54.5(ICD-10) [facility] Repository Unknown Z85.72 - Personal Farooq Cook Active [place] 8 history of non-Hodgkin Community lymphomas / Hospital Z85.72(ICD-10) Repository Admitting Wound Non-Healing / SHEAKENTRELL Santa Active [place] [address] diagnosis 582() [facility] [place] Repository Admitting Post Op Visit / 554() [facility] [address] diagnosis [facility] Repository Admitting Unspecified open wound [facility], [place] [address] diagnosis of unspecified back wall [facility] of thorax without [facility] penetration into Center thoracic cavity, Repository subsequent encounter / S21.209D(ICD-10) Admitting Other acute [facility], [place] [address] diagnosis postprocedural pain / [facility] G89.18(ICD-10) [facility] Repository Unknown N12 - LexaLinus Active [place] 7 Tubulo-interstitial Community nephritis, not specified Hospital as acute or chronic / Repository N12(ICD-10) PROCEDURES PROCEDURES No Procedure Records FoundRESULTS RESULTS CBC W/DIFF, AUTOMATED Collected: 2018 Status: F Source: [place] 1:13 PM [facility] HOSPITAL REPOSITORY TYPE CODE TESTS RESULT OUT OF RANGE REFERENCE UNITS LAB L100.1000 4.4-11.0 K/mm3 Normal WBC 5.0 LAB L100.1200 4.6-6.2 M/mm3 Low RBC 2.68 LAB L100.1300 13.0-16.5 g/dl Low HGB 9.1 LAB L100.1400 40-54 % Low HCT 28.5 LAB L100.1500 80-94 fL High MCV 106.3 LAB L100.1600 27.0-32.0 pg High MCH 34.0 LAB L100.1700 32-36 g/gl Low MCHC 31.9 LAB L100.1810 11.6-14.6 % High RDW CV 17.3 LAB L100.1820 35.1-43.9 fl High RDW SD 66.4 LAB L100.1900 150-450 K/mm3 Normal PLT 267 LAB L100.2000 6.2-12.0 fl Normal MPV 9.0 LAB L100.2100 47-70 % Normal NEUT% 68.0 LAB L100.2200 19-41 % Low LY% 16.2 LAB L100.2300 0-10 % High MONO% 11.2 LAB L100.2400 0-5 % Normal EO% 4.2 LAB L100.2500 0-1 % Normal BASO% 0.4 LAB L100.2550 0.0-0.9 % Normal IM GRAN % 0.000 Result Comment: IG% - Immature Granulocytes (promyelocytes, myelocytes and metamyelocytes) > 1% indicates that a LEFT SHIFT is Present. LAB L100.2620 2.0-7.7 X10 3/uL Absolute Neut Normal 3.4 LAB L100.2720 0.83-4.51 X10 3/ul Low Absolute Lymph 0.81 LAB L100.5500 ADEQ PLT EST Normal ADEQUATE LAB L100.7300 ANISO Normal 1+ LAB L100.7600 HYPOCHROMASIA Normal 2+ LAB L100.7800 MACROCYTE Normal 1+ Performed By: #### L100.0100 #### [facility] [address] [place], [place], [id number] RENAL PROFILE Collected: 2018 Status: F Source: [place] 1:[address] [facility] REPOSITORY TYPE CODE TESTS RESULT OUT OF RANGE REFERENCE UNITS LAB L501.0100 74-106 mg/dL Normal GLU 102 Result Comment: Fasting Glucose result from 100 to 125 mg/dL suggests IMPAIRED HOMEOSTASIS per A.D.A. criteria. Please note revised GLUCOSE reference range effective 2017. LAB L501.1000 7-18 mg/dL High BUN 28 LAB L501.1100 0.70-1.30 mg/dL Normal CREAT,SERUM 1.12 Result Comment: The validity of the calculated GFR AND GFRAA in patients over 70 years has not been determined. Clinical correlation is essential. LAB L501.1110 >60 mL/min Normal EST GFR 68 Result Comment: Non- GFR Calc LAB L501.1115 >60 mL/min Normal EST GFR - AA 82 Result Comment: GFR Calc LAB L501.1255 ml/min Normal Estimated CRCL 55.98 LAB L501.1300 10-20 RATIO High BUN/CRE 25.0 LAB L501.1800 3.2-5. g/dL Low 0 ALB 3.0 LAB L501.2200 8.5-10 mg/dL Normal .1 CA 8.5 LAB L501.2300 2.5-4. mg/dL Normal 9 PHOS 2.6 LAB L501.5300 136-14 mmol/L Normal 5 NA 136 LAB L501.5600 3.5-5. mmol/L Normal 1 K 3.6 LAB L501.5900 98-107 mmol/L Normal CL 101 LAB L501.6100 21.0-3 mmol/L Normal 2.0 CO2 28.0 Performed By: #### L500.3600 #### [facility] [address] [place], [address] CBC W/DIFF, AUTOMATED Collected: 04/08/2018 Status: F Source: [place] 12:[address] [facility] REPOSITORY TYPE CODE TESTS RESULT OUT OF RANGE REFERENCE UNITS LAB L100.1000 4.4-11.0 K/mm3 Normal WBC 6.7 LAB L100.1200 4.6-6.2 M/mm3 Low RBC 2.71 LAB L100.1300 13.0-16.5 g/dl Low HGB 9.1 LAB L100.1400 40-54 % Low HCT 28.8 LAB L100.1500 80-94 fL High MCV 106.3 LAB L100.1600 27.0-32.0 pg High MCH 33.6 LAB L100.1700 32-36 g/gl Low MCHC 31.6 LAB L100.1810 11.6-14.6 % High RDW CV 17.6 LAB L100.1820 35.1-43.9 fl High RDW SD 67.5 LAB L100.1900 150-450 K/mm3 Normal PLT 241 LAB L100.2000 6.2-12.0 fl Normal MPV 9.1 LAB L100.2100 47-70 % Normal NEUT% 67.9 LAB L100.2200 19-41 % Low LY% 16.5 LAB L100.2300 0-10 % High MONO% 12.6 LAB L100.2400 0-5 % Normal EO% 2.7 LAB L100.2500 0-1 % Normal BASO% 0.3 LAB L100.2550 0.0-0.9 % Normal IM GRAN % 0.000 Result Comment: IG% - Immature Granulocytes (promyelocytes, myelocytes and metamyelocytes) > 1% indicates that a LEFT SHIFT is Present. LAB L100.2620 2.0-7.7 X10 3/uL Absolute Neut Normal 4.6 LAB L100.2720 0.83-4.51 X10 3/ul Absolute Lymph Normal 1.11 LAB L100.5500 ADEQ PLT EST Normal ADEQUATE LAB L100.7300 ANISO Normal 1+ LAB L100.7600 HYPOCHROMASIA Normal 1+ LAB L100.7800 MACROCYTE Normal 1+ Performed By: #### L100.0100 #### [facility] [address] [place], [address] RENAL PROFILE Collected: 04/08/2018 Status: F Source: [place] 12:[address] [facility] REPOSITORY TYPE CODE TESTS RESULT OUT OF RANGE REFERENCE UNITS LAB L501.0100 74-106 mg/dL Normal GLU 98 Result Comment: Please note revised GLUCOSE reference range effective 2017. LAB L501.1000 7-18 mg/dL High BUN 31 LAB L501.1100 0.70-1.30 mg/dL Normal CREAT,SERUM 1.09 Result Comment: The validity of the calculated GFR AND GFRAA in patients over 70 years has not been determined. Clinical correlation is essential. LAB L501.1110 >60 mL/min Normal EST GFR 70 Result Comment: Non- GFR Calc LAB L501.1115 >60 mL/min Normal EST GFR - AA 85 Result Comment: GFR Calc LAB L501.1300 10-20 RATIO High BUN/CRE 28.4 LAB L501.1800 3.2-5.0 g/dL Low ALB 3.0 LAB L501.2200 8.5-10.1 mg/dL CA Normal 8.9 LAB L501.2300 2.5-4.9 mg/dL Low PHOS 2.2 LAB L501.5300 136-145 mmol/L NA Normal 139 LAB L501.5600 3.5-5.1 mmol/L K Normal 3.6 LAB L501.5900 98-107 mmol/L CL Normal 103 LAB L501.6100 21.0-32.0 mmol/L Normal CO2 26.0 Performed By: #### L500.3600 #### [facility] [address] [place], [place], [address] CBC-COMPLETE BLOOD CNT Collected: 04/03/2018 Status: F Source: [place] NO DIFF 12:[address] [facility] REPOSITORY TYPE CODE TESTS RESULT OUT OF RANGE REFERENCE UNITS LAB L100.1000 4.4-11.0 K/mm3 Normal WBC 5.9 LAB L100.1200 4.6-6.2 M/mm3 Low RBC 2.59 LAB L100.1300 13.0-16.5 g/dl Low HGB 8.8 LAB L100.1400 40-54 % Low HCT 28.2 LAB L100.1500 80-94 fL High MCV 108.9 LAB L100.1600 27.0-32.0 pg High MCH 34.0 LAB L100.1700 32-36 g/gl Low MCHC 31.2 LAB L100.1810 11.6-14.6 % High RDW CV 17.4 LAB L100.1820 35.1-43.9 fl High RDW SD 66.2 LAB L100.1900 150-450 K/mm3 Normal PLT 348 LAB L100.2000 6.2-12.0 fl Normal MPV 10.0 Performed By: #### L100.0500, L100.4500 #### [facility] [address] [place], [place], [id number] DIFFERENTIAL COMMENT Collected: 04/03/2018 Status: F Source: [place] 12:[address] [facility] REPOSITORY TYPE CODE TESTS RESULT OUT OF RANGE REFERENCE UNITS LAB L100.4500 Normal SMEAR COMMENT SCANNED Result Comment: 2+ HYPOCHROMIA 1+ ANISOCYTOSIS Performed By: #### L100.0500, L100.4500 #### [facility] [address] [place], [address] RENAL PROFILE Collected: 04/03/2018 Status: F Source: [place] 12:[address] [facility] REPOSITORY TYPE CODE TESTS RESULT OUT OF RANGE REFERENCE UNITS LAB L501.0100 74-106 mg/dL Normal GLU 86 Result Comment: Please note revised GLUCOSE reference range effective 2017. LAB L501.1000 7-18 mg/dL High BUN 35 LAB L501.1100 0.70-1.30 mg/dL Normal CREAT,SERUM 1.19 Result Comment: The validity of the calculated GFR AND GFRAA in patients over 70 years has not been determined. Clinical correlation is essential. LAB L501.1110 >60 mL/min Normal EST GFR 64 Result Comment: Non- GFR Calc LAB L501.1115 >60 mL/min Normal EST GFR - AA 77 Result Comment: GFR Calc LAB L501.1300 10-20 RATIO High BUN/CRE 29.4 LAB L501.1800 3.2-5.0 g/dL Low ALB 3.0 LAB L501.2200 8.5-10.1 mg/dL Low CA 8.4 LAB L501.2300 2.5-4.9 mg/dL Normal PHOS 2.8 LAB L501.5300 136-145 mmol/L NA Normal 139 LAB L501.5600 3.5-5.1 mmol/L K Normal 4.2 LAB L501.5900 98-107 mmol/L CL Normal 106 LAB L501.6100 21.0-32.0 mmol/L Normal CO2 22.0 Performed By: #### L500.3600 #### [facility] [address] [place], [address] PTHIN Collected: 04/03/2018 Status: F Source: [place] 12:[address] [facility] REPOSITORY TYPE CODE TESTS RESULT OUT OF RANGE REFERENCE UNITS LAB L509.1000 18.4-80.1 pg/mL High PTHIN 97.1 Performed By: #### L509.1000 #### [facility] [address] [place], [address] VITAMIN D,25 HYDROXY Collected: 04/03/2018 Status: F Source: [place] 12:[address] [facility] REPOSITORY TYPE CODE TESTS RESULT OUT OF REFERENCE UNITS RANGE LAB L506.1000 29.95-100.01 ng/mL Low Vitamin D 15.7 25-OH Result Comment: Vitamin D 25(OH) Status Range Deficiency <20 ng/mL (50nmol/L) Insuffciency 20 - 30 ng/mL (50 - 75 nmol/L) Sufficiency 30 - 100 ng/mL (75 - 250 nmol/L) Toxicity >100 ng/mL (>250 nmol/L) Performed By: #### L506.1000 #### [facility] [address] [place], [address] CNOV Observed: 04/02/2018 Status: COMPLETED Source: [place] 12:45 PM [facility] REPOSITORY Office Visit (PLASMN) CUONG MARSHALL ([id number]) 1945 M Date Time Provider Department 04/02/18 12:45 PM KALPANA SKINNER During your visit today, we recorded the following information about you: Pulse Blood pressure Weight Height 72/minute 143/66 82.1 kg 1.727 m Kalpana Skinner MD 04/04/2018 2:28 PM Signed Plastic Surgery Note CC: Consult by Dr. Blevins regarding this patient's open wound. HPI: Cuong is a 72 year old male presents to clinic today with his for evaluation of non-healing lumbar wound. S/p lumbar laminectomy due to radiation in 03/04/2017, by Dr. Sanchez. Significant medical history of Large B- cell lymphoma diagnosed in 2001, diagnosed splenectomy. Lumbar mass with bony metastases was found incidentally treated with radiation therapy. He reports multiple infections and placement of wound VACs for treatment. Currently, packing with Aquacel, dry gauze, abd for the last three months. Visits [facility] weekly in [place]; packs daily. She reports some improvement in size and amount of drainage. History of PE; taking Eliquis H/o Hodkin's Lymphoma, HTN, Paroxysmal a-fib, CHF, CKD Objective: BP 143/66 Pulse 72 Ht 172.7 cm (5' 8) Wt 82.1 kg (181 lb) BMI 27.52 kg/m? PAST MEDICAL HISTORY Diagnosis Date - Diverticulitis of colon (without mention of hemorrhage)(562.11) - Insomnia, unspecified - Lymphoma, Hodgkin's (HCC) - Unspecified essential hypertension PAST SURGICAL HISTORY Procedure Laterality Date - INS TUNNEL CVC W/O PORT >=5 10/24/2016 - LOCAL REVISION OF ILESTOMY - PAST SURGICAL HISTORY OF lymph nodes, right axilla - REMOVAL COLON/ILEOSTOMY - REMOVAL SPLEEN, TOTAL Current Outpatient Prescriptions: apixaban (ELIQUIS) 2.5 mg tab tab(s) Take 2.5 mg by mouth twice daily. Disp: Rfl: atorvastatin (LIPITOR) 20 mg tablet Take 20 mg by mouth once daily. Disp: Rfl: FERROUS SULFATE ORAL Take 326 mg by mouth twice daily. Disp: Rfl: gabapentin (NEURONTIN) 100 mg capsule Take one capsule by mouth 2-3 times daily. Disp: Rfl: oxyCODONE IR (ROXICODONE) 30 mg immediate release tablet Take 1/2-1 tablet by mouth four times daily as needed for severe pain Disp: Rfl: 0 vit A/vit C/vit E/zinc/copper (PRESERVISION AREDS ORAL) Take 2 tablets by mouth once daily. Disp: Rfl: cholecalciferol, vitamin D3, (VITAMIN D3 ORAL) Take 1 tablet by mouth once daily. Disp: Rfl: vitamin B complex (SUPER B COMPLEX ORAL) Take 1 tablet by mouth once daily. Disp: Rfl: fentaNYL (DURAGESIC) 75 mcg/hr Apply 1 Patch as directed every 72 hours. Disp: Rfl: Ferrous Gluconate (FERGON) 240 mg (27 mg iron) tablet Take 240 mg by mouth twice daily with meals. Disp: Rfl: BETA-CAROTENE,A, W-C AND E/ZN/CU (VISION-SEKOU PRESERVE ORAL) Take by mouth. Disp: Rfl: cholecalciferol (VITAMIN D) 1,000 unit tab tablet Take 1,000 Units by mouth once daily. Disp: Rfl: IRON HIGH POTENCY 240 mg (27 mg iron) tablet Disp: Rfl: lisinopril (ZESTRIL, PRINIVIL) 10 mg tablet Disp: Rfl: furosemide (LASIX) 40 mg tablet Disp: Rfl: magnesium oxide (MAG-OX) 400 mg tablet Take 400 mg by mouth once daily. Disp: Rfl: metoprolol tartrate, short acting, (LOPRESSOR) 25 mg tablet Take 1/2 tablet by mouth once daily. Disp: Rfl: oxyCODONE-acetaminophen (PERCOCET) 7.5-325 mg tablet Disp: Rfl: zaleplon (SONATA) 10 mg capsule Disp: Rfl: SYMBICORT 160-4.5 mcg/actuation inhaler Disp: Rfl: ELIQUIS 5 mg tab tab(s) Disp: Rfl: allopurinol (ZYLOPRIM) 100 mg tablet Disp: Rfl: folic acid 1 mg tablet Take 1 mg by mouth once daily. Disp: Rfl: atorvastatin 10 mg tablet Take 10 mg by mouth once daily. Disp: Rfl: cyanocobalamin (VITAMIN B-12) 1,000 mcg tab Take 1,000 mcg by mouth once daily. Disp: Rfl: No current facility-administered medications for this visit. ALLERGIES No Known Allergies ROS: Pain is 6 out of 10; Fentanyl patch daily and [place] HEENT: Negative for frequent or significant headaches, No changes in hearing or vision, no nose bleeds or other nasal problems NECK: Negative for lumps, goiter, pain and significant neck swelling RESPIRATORY: Negative for cough, hemoptysis, wheezing, COPD, dyspnea or shortness of breath CARDIOVASCULAR: CHF, Hypertension, Paroxysmal Atrial Fibrillation GI: No nausea, vomiting, or diarrhea : No history of dysuria, frequency or incontinence PE: AANDO x 3; NAD Lumbar wound is fairly shallow however with chronic nonhealing characteristics of a radiated wound. The skin to either side of the chest appears fairly soft however is difficult to tell exactly where the radiation ends a fibrinous on the wound and this was cleaned up. He certainly can shower over this. Assessment: Lumbar non healing wound, s/p laminectomy H/o DLBC H/o radiation therapy This is a difficult area anatomically. May require bilateral advancement flaps. Turndown latissimus flap may not reach. Would be nice to know the extent of the radiation from a medial to lateral standpoint. He will check on this for us. Offered hyperbaric oxygen as no attempt however the patient feels he is no way capable of doing that for claustrophobia issues. The patient was seen and examined by Dr. Skinner and the following reflects his service. Scribed by SOLA Kaye MD Referring Provider: SELF [[id number]] Allergies As of Date: 04/02/2018 Noted Allergy Reaction PREDNISONE 11/08/2016 7 - Swelling Date Reviewed: 04/02/2018 Reviewed by: Jeane Estrada Ma - Fully Assessed Reason for Visit: Consult [173] Primary Visit Diagnosis:Open wound of back, unspecified laterality, initial encounter [S21.990A] Other Visit Diagnosis:Effects of radiation, sequela [T66.XXXS] Prescriptions as of 04/02/2018 Sig: APIXABAN 2.5 MG TABLET Take 2.5 mg by mouth twice da* ATORVASTATIN 20 MG TABLET Take 20 mg by mouth once mich* FERROUS SULFATE ORAL Take 326 mg by mouth twice da* GABAPENTIN 100 MG CAPSULE Take one capsule by mouth 2-3* OXYCODONE 30 MG TABLET Take 1/2-1 tablet by mouth fo* PRESERVISION AREDS ORAL Take 2 tablets by mouth once * VITAMIN D3 ORAL Take 1 tablet by mouth once d* SUPER B COMPLEX ORAL Take 1 tablet by mouth once d* FENTANYL 75 MCG/HR TRANSDERMA* Apply 1 Patch as directed viky* FERROUS GLUCONATE 240 MG (27 * Take 240 mg by mouth twice da* VISION-SEKOU PRESERVE ORAL Take by mouth. CHOLECALCIFEROL (VITAMIN D3) * Take 1,000 Units by mouth onc* IRON HIGH POTENCY 240 MG (27 * LISINOPRIL 10 MG TABLET FUROSEMIDE 40 MG TABLET MAGNESIUM OXIDE 400 MG (241.3* Take 400 mg by mouth once tyler* METOPROLOL TARTRATE 25 MG TAB* Take 1/2 tablet by mouth once* OXYCODONE-ACETAMINOPHEN 7.5 M* ZALEPLON 10 MG CAPSULE SYMBICORT 160 MCG-4.5 MCG/ACT* ELIQUIS 5 MG TABLET ALLOPURINOL 100 MG TABLET FOLIC ACID 1 MG TABLET Take 1 mg by mouth once daily. ATORVASTATIN 10 MG TABLET Take 10 mg by mouth once mich* CYANOCOBALAMIN (VIT B-12) 1,0* Take 1,000 mcg by mouth once * Problem List As Of Date 04/02/2018 Noted Resolved SUPPURAT PERITONITIS NEC [567.2] INVALID FOR* LYMPHOMA UNSP SITE XTRNOD/SOLID ORG [C85.89] INVALID FOR* Foot pain [M79.673] INVALID FOR* Flat foot(734) [M21.40] INVALID FOR* Neuropathy due to chemotherapeutic drug (HCC) [*INVALID FOR* Encounter Status:Closed by KALPANA SKINNER MD on 04/04/18 PROGRESS Observed: 04/02/2018 Status: COMPLETED Source: [place] 8:[address] [facility] [place] REPOSITORY HNO ID: [id number] Author: Kalpana Skinner Service: (none) Author Type: Physician Type: Progress Notes Filed: 04/04/2018 2:28 PM Note Text: Plastic Surgery Note CC: Consult by Dr. Blevins regarding this patient's open wound. HPI: Cuong is a 72 year old male presents to clinic today with his for evaluation of non-healing lumbar wound. S/p lumbar laminectomy due to radiation in 03/04/2017, by Dr. Sanchez. Significant medical history of Large B- cell lymphoma diagnosed in 2001, diagnosed splenectomy. Lumbar mass with bony metastases was found incidentally treated with radiation therapy. He reports multiple infections and placement of wound VACs for treatment. Currently, packing with Aquacel, dry gauze, abd for the last three months. Visits [facility] weekly in [place]; packs daily. She reports some improvement in size and amount of drainage. History of PE; taking Eliquis H/o Hodkin's Lymphoma, HTN, Paroxysmal a-fib, CHF, CKD Objective: BP 143/66 Pulse 72 Ht 172.7 cm (5' 8) Wt 82.1 kg (181 lb) BMI 27.52 kg/m? PAST MEDICAL HISTORY Diagnosis Date - Diverticulitis of colon (without mention of hemorrhage)(562.11) - Insomnia, unspecified - Lymphoma, Hodgkin's (HCC) - Unspecified essential hypertension PAST SURGICAL HISTORY Procedure Laterality Date - INS TUNNEL CVC W/O PORT >=5 10/24/2016 - LOCAL REVISION OF ILESTOMY - PAST SURGICAL HISTORY OF lymph nodes, right axilla - REMOVAL COLON/ILEOSTOMY - REMOVAL SPLEEN, TOTAL Current Outpatient Prescriptions: apixaban (ELIQUIS) 2.5 mg tab tab(s) Take 2.5 mg by mouth twice daily. Disp: Rfl: atorvastatin (LIPITOR) 20 mg tablet Take 20 mg by mouth once daily. Disp: Rfl: FERROUS SULFATE ORAL Take 326 mg by mouth twice daily. Disp: Rfl: gabapentin (NEURONTIN) 100 mg capsule Take one capsule by mouth 2-3 times daily. Disp: Rfl: oxyCODONE IR (ROXICODONE) 30 mg immediate release tablet Take 1/2-1 tablet by mouth four times daily as needed for severe pain Disp: Rfl: 0 vit A/vit C/vit E/zinc/copper (PRESERVISION AREDS ORAL) Take 2 tablets by mouth once daily. Disp: Rfl: cholecalciferol, vitamin D3, (VITAMIN D3 ORAL) Take 1 tablet by mouth once daily. Disp: Rfl: vitamin B complex (SUPER B COMPLEX ORAL) Take 1 tablet by mouth once daily. Disp: Rfl: fentaNYL (DURAGESIC) 75 mcg/hr Apply 1 Patch as directed every 72 hours. Disp: Rfl: Ferrous Gluconate (FERGON) 240 mg (27 mg iron) tablet Take 240 mg by mouth twice daily with meals. Disp: Rfl: BETA-CAROTENE,A, W-C AND E/ZN/CU (VISION-SEKOU PRESERVE ORAL) Take by mouth. Disp: Rfl: cholecalciferol (VITAMIN D) 1,000 unit tab tablet Take 1,000 Units by mouth once daily. Disp: Rfl: IRON HIGH POTENCY 240 mg (27 mg iron) tablet Disp: Rfl: lisinopril (ZESTRIL, PRINIVIL) 10 mg tablet Disp: Rfl: furosemide (LASIX) 40 mg tablet Disp: Rfl: magnesium oxide (MAG-OX) 400 mg tablet Take 400 mg by mouth once daily. Disp: Rfl: metoprolol tartrate, short acting, (LOPRESSOR) 25 mg tablet Take 1/2 tablet by mouth once daily. Disp: Rfl: oxyCODONE-acetaminophen (PERCOCET) 7.5-325 mg tablet Disp: Rfl: zaleplon (SONATA) 10 mg capsule Disp: Rfl: SYMBICORT 160-4.5 mcg/actuation inhaler Disp: Rfl: ELIQUIS 5 mg tab tab(s) Disp: Rfl: allopurinol (ZYLOPRIM) 100 mg tablet Disp: Rfl: folic acid 1 mg tablet Take 1 mg by mouth once daily. Disp: Rfl: atorvastatin 10 mg tablet Take 10 mg by mouth once daily. Disp: Rfl: cyanocobalamin (VITAMIN B-12) 1,000 mcg tab Take 1,000 mcg by mouth once daily. Disp: Rfl: No current facility-administered medications for this visit. ALLERGIES No Known Allergies ROS: Pain is 6 out of 10; Fentanyl patch daily and [place] HEENT: Negative for frequent or significant headaches, No changes in hearing or vision, no nose bleeds or other nasal problems NECK: Negative for lumps, goiter, pain and significant neck swelling RESPIRATORY: Negative for cough, hemoptysis, wheezing, COPD, dyspnea or shortness of breath CARDIOVASCULAR: CHF, Hypertension, Paroxysmal Atrial Fibrillation GI: No nausea, vomiting, or diarrhea : No history of dysuria, frequency or incontinence PE: AANDO x 3; NAD Lumbar wound is fairly shallow however with chronic nonhealing characteristics of a radiated wound. The skin to either side of the chest appears fairly soft however is difficult to tell exactly where the radiation ends a fibrinous on the wound and this was cleaned up. He certainly can shower over this. Assessment: Lumbar non healing wound, s/p laminectomy H/o DLBC H/o radiation therapy This is a difficult area anatomically. May require bilateral advancement flaps. Turndown latissimus flap may not reach. Would be nice to know the extent of the radiation from a medial to lateral standpoint. He will check on this for us. Offered hyperbaric oxygen as no attempt however the patient feels he is no way capable of doing that for claustrophobia issues. The patient was seen and examined by Dr. Skinner and the following reflects his service. Scribed by SOLA Kaye MD CARDIOLOGY VISIT Observed: 03/27/2018 Status: F Source: [place] REPORT 10:[address] [facility] REPOSITORY [facility] [address] [place] [address] OFFICE VISIT Date of Service: 03/18/18 MR#: [id number] Acct: [id number] Name: CUONG MARSHALL Rep #: [id number] : 1945 Provider: Micky Mauro MD Age/Sex: 72/M Location: [facility] Status: Signed HPI HPI Details: CUONG MARSHALL, is a 72 M who presents to the office today for Intake Intake Visit Reasons: 4 M FU Allergies chlorthalidone Allergy (Verified 03/14/18 12:31) Unknown ramipril [From Altace] Allergy (Verified 03/14/18 12:31) Unknown sulfamethoxazole [From Bactrim] Allergy (Verified 03/14/18 12:31) Other trazodone Allergy (Verified 03/14/18 12:31) Unknown trimethoprim [From Bactrim] Allergy (Verified 03/14/18 12:31) Other prednisone Adverse Reaction (Verified 03/14/18 12:31) Swelling Medications Folic Acid 1 mg PO DAILY@0800 02/05/16 [History Confirmed 03/14/18] Magnesium Oxide [Magnesium] 400 mg PO DAILY@0800 02/05/16 [History Confirmed 03/14/18] Cholecalciferol (Vitamin D3) [Vitamin D3] 1,000 unit PO DAILY@0800 10/14/16 [History Confirmed 03/14/18] Gabapentin [Neurontin] 100 mg PO TIDCM 07/04/17 [History Confirmed 03/14/18] Vit C/E/Zn/Coppr/Lutein/Zeaxan [Preservision Areds 2 Softgel] 2 ea PO QHS 07/04/17 [History Confirmed 03/14/18] Acetaminophen [Tylenol] 1,000 mg PO Q8H PRN tab 07/12/17 [Rx Confirmed 03/14/18] Melatonin 3 mg PO QHS #30 tab 07/12/17 [Rx Confirmed 03/14/18] Oxycodone HCl 30 mg PO Q4H PRN PRN 07/23/17 [History Confirmed 03/14/18] B-complex with vitamin C tablet 1 tab PO QDAY 08/27/17 [History Confirmed 03/14/18] apixaban 5 mg tablet 2.5 mg PO BID tab 08/27/17 [History Confirmed 03/14/18] ferrous fumarate 325 mg (106 mg iron) tablet 325 mg PO BID tab 08/27/17 [History Confirmed 03/14/18] atorvastatin 20 mg tablet 20 mg PO QHS #90 tab 09/04/17 [Rx Confirmed 03/14/18] metoprolol succinate ER 25 mg tablet,extended release 24 hr 12.5 mg PO DAILY #90 tab 09/04/17 [Rx Confirmed 03/14/18] furosemide 40 mg tablet 40 mg PO QDAY #90 tab 01/13/18 [Rx Confirmed 03/14/18] Fentanyl 25 02/28/18 [History] COUNT INCLUDES THE [facility] Medical History Secondary pulmonary arterial hypertension (Chronic) Chronic combined systolic and diastolic CHF (congestive heart failure) (Chronic) Ascending aorta dilatation (Chronic) Aortic root dilatation (Chronic) PSVT (paroxysmal supraventricular tachycardia) (Chronic) Cardiomyopathy, dilated (Chronic) Paroxysmal atrial fibrillation (Chronic) Pleural effusion (Chronic) Pericardial effusion (Chronic) Pulmonary embolism (Chronic) Chronic kidney disease (Chronic) Non-Hodgkin lymphoma (Chronic) Hyperlipidemia (Chronic) Hypertension (Chronic) Peripheral vascular disease (Chronic) Ascites (Acute) Edema of lower extremity (Acute) Gout (Acute) Hepatic cirrhosis (Acute) Late effect of radiation (Acute) Open wound of lower back (Acute) Chronic ulcer of right leg with fat layer exposed (Chronic) History of DVT (deep vein thrombosis) (Chronic) History of diverticulitis (Chronic) Lumbar disc disease (Chronic) Lymphedema (Chronic) 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) MARY JANE (obstructive sleep apnea) (Chronic) Osteomyelitis (Chronic) Surgical History History of laminectomy (Chronic) History of splenectomy (Chronic) Family History Father Diabetes Heart disease Mother Heart disease Social History Smoking Status: Former smoker alcohol intake: current ROS Const Const: Negative for fatigue, weakness, night sweats, excessive sweating, frequent falls, headache(s) or daytime sleepiness Eyes Eyes: Negative for loss of peripheral vision, transient loss of vision, blind spots, double vision or blurry vision ENT ENT: Negative for headache(s), dizziness, balance problems, Nosebleed/epistaxis, tongue swelling or lip swelling Cardio Chest Pain: No Palpitations: No Edema: None Muscle aches with walking: None Resp Respiratory: Negative for SOB at rest, SOB orthopnea\SOB lying down, Cough, paroxysmal nocturnal dyspnea or SOB with activity GI GI: Negative nausea, vomiting, heartburn, black,tarry stools or bright, red blood in stools : Negative for hematuria Musc Musc: Negative for balance problems, muscle aches/ myalgia, muscle weakness or joint pain Skin Skin: Negative non-healing lesions, unusual bruising or rash Neuro Neuro: Negative for weakness, frequent falls, headache(s), double vision, dizziness, lightheadedness, orthostatic symptoms, blurry vision or lack of coordination Vikas Hematologic/Lymphatic: Negative for easy bruising or easy bleeding Endo Endo: Negative for fatigue, excessive sweating, cold intolerance, heat intolerance, increased thirst/drinking or hair loss Psych Psych: Negative for anxiety or depression Allergy Allergy/Immunology: Negative for throat swelling, Negative for tongue swelling, Negative for hives, Negative for rash, Negative for lip swelling Assessment AND Plan Medications Discontinued: atorvastatin Discontinued Reason: Order edited - [id number] mg PO QDAY 90 tabs 3RF ing original order Coding Level of Care Code No Charge Coding Level of Care Code No Charge 03/27/18 1044 <Electronically signed by Micky Mauro MD> Date Micky Mauro MD Cosigner Signature: Date (if applicable) CC: Linus Lindquist DO CBC W/DIFF, AUTOMATED Collected: 03/14/2018 Status: F Source: [place] 12:[address] [facility] REPOSITORY TYPE CODE TESTS RESULT OUT OF RANGE REFERENCE UNITS LAB L100.1000 4.4-11.0 K/mm3 Normal WBC 6.7 LAB L100.1200 4.6-6.2 M/mm3 Low RBC 2.74 LAB L100.1300 13.0-16.5 g/dl Low HGB 8.9 LAB L100.1400 40-54 % Low HCT 28.8 LAB L100.1500 80-94 fL High MCV 105.1 LAB L100.1600 27.0-32.0 pg High MCH 32.5 LAB L100.1700 32-36 g/gl Low MCHC 30.9 LAB L100.1810 11.6-14.6 % High RDW CV 15.5 LAB L100.1820 35.1-43.9 fl High RDW SD 59.1 LAB L100.1900 150-450 K/mm3 Normal PLT 220 LAB L100.2000 6.2-12.0 fl Normal MPV 9.4 LAB L100.2100 47-70 % Normal NEUT% 63.4 LAB L100.2200 19-41 % Low LY% 17.2 LAB L100.2300 0-10 % High MONO% 15.1 LAB L100.2400 0-5 % Normal EO% 3.7 LAB L100.2500 0-1 % Normal BASO% 0.6 LAB L100.2550 0.0-0.9 % Normal IM GRAN % 0.000 Result Comment: IG% - Immature Granulocytes (promyelocytes, myelocytes and metamyelocytes) > 1% indicates that a LEFT SHIFT is Present. LAB L100.2620 2.0-7.7 X10 3/uL Normal Absolute Neut 4.2 LAB L100.2720 0.83-4.51 X10 3/ul Normal Absolute Lymph 1.15 Performed By: #### L100.0100 #### [facility] [address] [place], [address] RENAL PROFILE Collected: 03/14/2018 Status: F Source: [place] 12:[address] [facility] REPOSITORY TYPE CODE TESTS RESULT OUT OF RANGE REFERENCE UNITS LAB L501.0100 74-106 mg/dL Normal GLU 98 Result Comment: Please note revised GLUCOSE reference range effective 2017. LAB L501.1000 7-18 mg/dL High BUN 57 LAB L501.1100 0.70-1.30 mg/dL High CREAT,SERUM 1.57 Result Comment: The validity of the calculated GFR AND GFRAA in patients over 70 years has not been determined. Clinical correlation is essential. LAB L501.1110 >60 mL/min Low EST GFR 46 Result Comment: Non- GFR Calc LAB L501.1115 >60 mL/min Low EST GFR - AA 56 Result Comment: GFR Calc LAB L501.1255 ml/min Normal Estimated CRCL 40.54 LAB L501.1300 10-20 RATIO High BUN/CRE 36.3 LAB L501.1800 3.2-5. g/dL Low 0 ALB 2.7 LAB L501.2200 8.5-10 mg/dL Low .1 CA 8.2 LAB L501.2300 2.5-4. mg/dL Normal 9 PHOS 3.2 LAB L501.5300 136-14 mmol/L Normal 5 NA 140 LAB L501.5600 3.5-5. mmol/L Normal 1 K 3.8 LAB L501.5900 98-107 mmol/L Normal CL 103 LAB L501.6100 21.0-3 mmol/L Normal 2.0 CO2 27.0 Performed By: #### L500.3600 #### [facility] [address] [place], [address] PROGRESS Observed: 03/11/2018 Status: COMPLETED Source: [place] 3:[address] [facility] [place] REPOSITORY HNO ID: [id number] Author: Sreedhar Blevins Service: (none) Author Type: Physician Type: Progress Notes Filed: 03/13/2018 8:28 AM Note Text: Consult requested by Dr. Oliva for my opinion and recommendations regarding sclerotic bone lesion incidentally found on imaging on a patient with a history of diffuse large B-cell lymphoma. The impression and plan will be communicated by sending this full consult note to Dr. Lindquist under separate cover letter. HPI: The patient is a 72-year-old male who was diagnosed with DLBC lymphoma, hypertension, hyperlipidemia, paroxysmal atrial fibrillation, congestive heart failure (most recent echo 11/2017; estimated LVEF 55%. Stage I diastolic dysfunction), pulmonary emboli, CKD and non-healing lumbar wound. Presented with severe lower back pain in 2001 and evidently workup demonstrated uma-lumbar mass associated with bony metastases. Records regarding his original diagnosis are not currently available but the patient did undergo a splenectomy on 01/13/2002 and the pathology was consistent with diffuse large B-cell lymphoma. He received a short course of radiation the lumbar spine and M1 on to receive R CHOP. He had complete response and has been in remission since then. He has a lumbar wound that has been complicated by multiple infections and failure to close. Evidently this started after he underwent lumbar laminectomy in 2016 and because of radiation failed to heal well. He's gone through multiple debridements and multiple courses of antibiotics and he still attends the wound care center. He's had worsening of his back pain in the last few weeks and because of that a CT scan of the lumbar spine performed on 02/24/2018 demonstrated: There are destructive/sclerotic changes of L5. There is a slight decrease in vertical height of L3 with a mild mixed sclerotic pattern of such. There is faint sclerosis of the L1 body also. L1-2: There is endplate spondylosis at the L1-2 level. Disc spacing is preserved. There are bilateral hypertrophic degenerative facet changes. There is mild central canal stenosis caused by bulging annulus and degenerative facet changes. There is no foraminal narrowing. L2-3: There is mild endplate spondylosis. There are mild bilateral hypertrophic degenerative facet changes. There is moderately severe central canal stenosis caused by bulging annulus and ligamentum flavum hypertrophy. L3-4: There is endplate spondylosis. There are mild bilateral hypertrophic degenerative facet changes. There is severe central canal stenosis caused by degenerative facet changes, bulging annulus, and ligamentum flavum hypertrophy. Disc spacing is preserved. L4-5: Disc spacing is preserved. There are lytic changes with sclerotic reaction of the L5 body. There are mild bilateral degenerative facet changes. There are status post left L4 laminectomy changes. There is moderate central canal stenosis. There is no foraminal narrowing. L5-S1: There are mild bilateral degenerative facet changes. Disc spacing is preserved. There is no central canal stenosis or foraminal narrowing. There is a small sclerotic focus of the right iliac wing consistent with metastatic lesion. There is increased soft tissue density of the posterior paraspinous soft tissues with changes consistent with postoperative change. There is no evidence of soft tissue gas or abnormal fluid collection. At the time the CT was done, the radiologist did not have access to a previous CT of the lumbar spine done in 11/22/2016 and 01/02/2016. Has not had any recent fevers. He describes his appetite is been good. He doesn't have any chest pain, chronic cough or sputum production. No wheezing. He denies abdominal pain, bloating and distention. Bowels are moving regularly. He has sensory neuropathy of both feet since the time of his original chemotherapy. Hands are not affected. He has significant lumbar pain and is not able to lie flat because of the pain. He is on a fentanyl patch, 75 ?g per hour as well as hydromorphone for breakthrough pain. He sleeps in a recliner. He has an upcoming appointment with the chronic china painter. PMH, medications and allergies personally reviewed by me today. Any changes documented in appropriate section. ROS: Constitutional: See above. Neuro: Denies MCCNONELL, vertigo and dizziness. HEENT: No recent change in voice, vision or hearing. Resp: Denies shortness of breath at rest. CVS: Denies exertional chest pain, PND, orthopnea and LE edema. GI: Denies dysgeusia. Denies symptoms of stomatitis. Denies dysphagia and odynophagia. Denies reflux as well as n/v. : Denies dysuria or gross hematuria.. Endo: Denies hot flashes. Denies polyuria and polydipsia. Denies heat and cold intolerance. Musculoskeletal: See above. Derm: Denies rash. Denies jaundice and diffuse pruritis. Heme: Denies unusual bleeding and unexplained bruising. Psych: Normal mood, but very frustrated with medical issues. PHYSICAL EXAM: Vitals: Blood pressure 119/63, pulse 80, temperature 36.9 ?C (98.5 ?F), temperature source Oral. Uncomfortable-appearing and in no acute distress. EYES: Sclerae are anicteric bilaterally. NECK: Supple. LYMPHATIC: There is no palpable cervical, supraclavicular or axillary adenopathy. RESPIRATORY: Inspiratory breath sounds are of normal intensity in all white. No rales, wheezes or rhonchi. CARDIOVASCULAR: Rhythm is regular. Normal intensity S1/S2. There is no gallop. ABDOMEN: The abdomen is nondistended. No tenderness. Extremities: No swelling or edema. SKIN: No jaundice. There is a large lumbar open wound spanning from approximately L2 to the sacral base. There is granulation tissue at the base. Not all the packing was removed during this exam. NEUROLOGIC: collection systems consultant II-XII are grossly intact. ASSESSMENT/PLAN: (M89.9) Bone lesion (primary encounter diagnosis) Assessment: -In summary the patient is a 72-year-old male who has a past medical history significant for diffuse large B-cell lymphoma treated 16 years ago with palliative radiation followed by definitive chemotherapy. Complete response was obtained. Recently he had a sclerotic lesion of the right ischium incidentally observed on the CT of the lumbar spine. -I personally reviewed his previous CT scans from 2015 2016. On the most recent scan in 2018, the radiologist of the previous films were not available for review. On my comparison, the lesion had been there dating to at least 2015. It is not therefore malignant and no further workup indicated. Plan: -No oncologic follow up scheduled at this time. (C37.774A) Wound of back, unspecified laterality, initial encounter Assessment: -Very complicated nonhealing lumbar wound with repeated episodes of polymicrobial infection/colonization. -Patient desires second opinion from plastic surgery at [facility]. Plan: -Will see if we can make arrangements for referral. Sreedhar Blevins DO CNOVSP Observed: 03/11/2018 Status: COMPLETED Source: [place] 3:00 PM [facility] REPOSITORY Visit ([place]) Office ([place]) CUONG MARSHALL ([id number]) 1945 M Date Time Provider Department 03/11/18 3:00 PM SREEDHAR BLEVINS During your visit today, we recorded the following information about you: Temperature Pulse Blood pressure 98.5 degrees 80/minute 119/63 Sreedhar Blevins DO 03/13/2018 8:28 AM Signed Consult requested by Dr. Oliva for my opinion and recommendations regarding sclerotic bone lesion incidentally found on imaging on a patient with a history of diffuse large B-cell lymphoma. The impression and plan will be communicated by sending this full consult note to Dr. Lindquist under separate cover letter. HPI: The patient is a 72-year-old male who was diagnosed with DLBC lymphoma, hypertension, hyperlipidemia, paroxysmal atrial fibrillation, congestive heart failure (most recent echo 11/2017; estimated LVEF 55%. Stage I diastolic dysfunction), pulmonary emboli, CKD and non-healing lumbar wound. Presented with severe lower back pain in 2001 and evidently workup demonstrated uma-lumbar mass associated with bony metastases. Records regarding his original diagnosis are not currently available but the patient did undergo a splenectomy on 01/13/2002 and the pathology was consistent with diffuse large B-cell lymphoma. He received a short course of radiation the lumbar spine and M1 on to receive R CHOP. He had complete response and has been in remission since then. He has a lumbar wound that has been complicated by multiple infections and failure to close. Evidently this started after he underwent lumbar laminectomy in 2016 and because of radiation failed to heal well. He's gone through multiple debridements and multiple courses of antibiotics and he still attends the wound care center. He's had worsening of his back pain in the last few weeks and because of that a CT scan of the lumbar spine performed on 02/24/2018 demonstrated: There are destructive/sclerotic changes of L5. There is a slight decrease in vertical height of L3 with a mild mixed sclerotic pattern of such. There is faint sclerosis of the L1 body also. L1-2: There is endplate spondylosis at the L1-2 level. Disc spacing is preserved. There are bilateral hypertrophic degenerative facet changes. There is mild central canal stenosis caused by bulging annulus and degenerative facet changes. There is no foraminal narrowing. L2-3: There is mild endplate spondylosis. There are mild bilateral hypertrophic degenerative facet changes. There is moderately severe central canal stenosis caused by bulging annulus and ligamentum flavum hypertrophy. L3-4: There is endplate spondylosis. There are mild bilateral hypertrophic degenerative facet changes. There is severe central canal stenosis caused by degenerative facet changes, bulging annulus, and ligamentum flavum hypertrophy. Disc spacing is preserved. L4-5: Disc spacing is preserved. There are lytic changes with sclerotic reaction of the L5 body. There are mild bilateral degenerative facet changes. There are status post left L4 laminectomy changes. There is moderate central canal stenosis. There is no foraminal narrowing. L5-S1: There are mild bilateral degenerative facet changes. Disc spacing is preserved. There is no central canal stenosis or foraminal narrowing. There is a small sclerotic focus of the right iliac wing consistent with metastatic lesion. There is increased soft tissue density of the posterior paraspinous soft tissues with changes consistent with postoperative change. There is no evidence of soft tissue gas or abnormal fluid collection. At the time the CT was done, the radiologist did not have access to a previous CT of the lumbar spine done in 11/22/2016 and 01/02/2016. Has not had any recent fevers. He describes his appetite is been good. He doesn't have any chest pain, chronic cough or sputum production. No wheezing. He denies abdominal pain, bloating and distention. Bowels are moving regularly. He has sensory neuropathy of both feet since the time of his original chemotherapy. Hands are not affected. He has significant lumbar pain and is not able to lie flat because of the pain. He is on a fentanyl patch, 75 ?g per hour as well as hydromorphone for breakthrough pain. He sleeps in a recliner. He has an upcoming appointment with the chronic china painter. PMH, medications and allergies personally reviewed by me today. Any changes documented in appropriate section. ROS: Constitutional: See above. Neuro: Denies MCCONNELL, vertigo and dizziness. HEENT: No recent change in voice, vision or hearing. Resp: Denies shortness of breath at rest. CVS: Denies exertional chest pain, PND, orthopnea and LE edema. GI: Denies dysgeusia. Denies symptoms of stomatitis. Denies dysphagia and odynophagia. Denies reflux as well as n/v. : Denies dysuria or gross hematuria.. Endo: Denies hot flashes. Denies polyuria and polydipsia. Denies heat and cold intolerance. Musculoskeletal: See above. Derm: Denies rash. Denies jaundice and diffuse pruritis. Heme: Denies unusual bleeding and unexplained bruising. Psych: Normal mood, but very frustrated with medical issues. PHYSICAL EXAM: Vitals: Blood pressure 119/63, pulse 80, temperature 36.9 ?C (98.5 ?F), temperature source Oral. Uncomfortable-appearing and in no acute distress. EYES: Sclerae are anicteric bilaterally. NECK: Supple. LYMPHATIC: There is no palpable cervical, supraclavicular or axillary adenopathy. RESPIRATORY: Inspiratory breath sounds are of normal intensity in all white. No rales, wheezes or rhonchi. CARDIOVASCULAR: Rhythm is regular. Normal intensity S1/S2. There is no gallop. ABDOMEN: The abdomen is nondistended. No tenderness. Extremities: No swelling or edema. SKIN: No jaundice. There is a large lumbar open wound spanning from approximately L2 to the sacral base. There is granulation tissue at the base. Not all the packing was removed during this exam. NEUROLOGIC: collection systems consultant II-XII are grossly intact. ASSESSMENT/PLAN: (M89.9) Bone lesion (primary encounter diagnosis) Assessment: -In summary the patient is a 72-year-old male who has a past medical history significant for diffuse large B-cell lymphoma treated 16 years ago with palliative radiation followed by definitive chemotherapy. Complete response was obtained. Recently he had a sclerotic lesion of the right ischium incidentally observed on the CT of the lumbar spine. -I personally reviewed his previous CT scans from 2015 2016. On the most recent scan in 2018, the radiologist of the previous films were not available for review. On my comparison, the lesion had been there dating to at least 2015. It is not therefore malignant and no further workup indicated. Plan: -No oncologic follow up scheduled at this time. (S21.209A) Wound of back, unspecified laterality, initial encounter Assessment: -Very complicated nonhealing lumbar wound with repeated episodes of polymicrobial infection/colonization. -Patient desires second opinion from plastic surgery at [facility]. Plan: -Will see if we can make arrangements for referral. Sreedhar Blevins DO Referring Provider: LINUS LINDQUIST [[id number]] Allergies As of Date: 03/11/2018 (No Known Allergies) Date Reviewed: 03/11/2018 Reviewed by: Claire Samaniego - Fully Assessed Reason for Visit: New Patient Evaluation [154] Primary Visit Diagnosis:Bone lesion [M89.9] Other Visit Diagnosis:Wound of back, unspecified laterality, initial encounter [S21.209A] Prescriptions as of 03/11/2018 Sig: APIXABAN 2.5 MG TABLET Take 2.5 mg by mouth twice da* ATORVASTATIN 20 MG TABLET Take 20 mg by mouth once mich* FERROUS SULFATE ORAL Take 326 mg by mouth twice da* GABAPENTIN 100 MG CAPSULE Take one capsule by mouth 2-3* OXYCODONE 30 MG TABLET Take 1/2-1 tablet by mouth fo* PRESERVISION AREDS ORAL Take 2 tablets by mouth once * VITAMIN D3 ORAL Take 1 tablet by mouth once d* SUPER B COMPLEX ORAL Take 1 tablet by mouth once d* FENTANYL 75 MCG/HR TRANSDERMA* Apply 1 Patch as directed viky* MAGNESIUM OXIDE 400 MG (241.3* Take 400 mg by mouth once tyler* METOPROLOL TARTRATE 25 MG TAB* Take 1/2 tablet by mouth once* FOLIC ACID 1 MG TABLET Take 1 mg by mouth once daily. FERROUS GLUCONATE 240 MG (27 * Take 240 mg by mouth twice da* VISION-SEKOU PRESERVE ORAL Take by mouth. CHOLECALCIFEROL (VITAMIN D3) * Take 1,000 Units by mouth onc* IRON HIGH POTENCY 240 MG (27 * LISINOPRIL 10 MG TABLET FUROSEMIDE 40 MG TABLET OXYCODONE-ACETAMINOPHEN 7.5 M* ZALEPLON 10 MG CAPSULE SYMBICORT 160 MCG-4.5 MCG/ACT* ELIQUIS 5 MG TABLET ALLOPURINOL 100 MG TABLET ATORVASTATIN 10 MG TABLET Take 10 mg by mouth once mich* CYANOCOBALAMIN (VIT B-12) 1,0* Take 1,000 mcg by mouth once * Medication notes this encounter FERROUS GLUCONATE 240 MG (27 MG IRON) TABLET >> Claire Samaniego MA 03/11/2018 3:33 PM >> CLAIRE SAMANIEGO MA Mar 11, 2018 3:33 PM No longer taking this strength. VISION-SEKOU PRESERVE ORAL >> Claire Samaniego MA 03/11/2018 3:33 PM >> CLAIRE SAMANIEGO MA Mar 11, 2018 3:33 PM Not taking CHOLECALCIFEROL (VITAMIN D3) 1,000 UNIT TABLET >> Claire Samaniego MA 03/11/2018 3:33 PM >> CLAIRE SAMANIEGO MA Mar 11, 2018 3:33 PM No longer taking this strength. IRON HIGH POTENCY 240 MG (27 MG IRON) TABLET >> Claire Samaniego MA 03/11/2018 3:34 PM >> CLAIRE SAMANIEGO MA Mar 11, 2018 3:34 PM Not taking LISINOPRIL 10 MG TABLET >> Claire Samaniego MA 03/11/2018 3:34 PM >> CLAIRE SAMANIEGO MA Mar 11, 2018 3:34 PM Not taking FUROSEMIDE 40 MG TABLET >> Claire Samaniego MA 03/11/2018 3:34 PM >> CLAIRE SAMANIEGO MA Mar 11, 2018 3:34 PM Not taking ZALEPLON 10 MG CAPSULE >> Claire Samaniego MA 03/11/2018 3:34 PM >> CLAIRE SAMANIEGO MA Mar 11, 2018 3:34 PM Not taking SYMBICORT 160 MCG-4.5 MCG/ACTUATION HFA AEROSOL INHALER >> Claire Samaniego MA 03/11/2018 3:34 PM >> CLAIRE SAMANIEGO MA Mar 11, 2018 3:34 PM Not taking ELIQUIS 5 MG TABLET >> Claire Samaniego, MA 03/11/2018 3:34 PM >> CLAIRE SAMANIEGO MA edie Mar 11, 2018 3:34 PM No longer taking this strength. ALLOPURINOL 100 MG TABLET >> Clairelan Samaniego MA 03/11/2018 3:34 PM >> CLAIRE SAMANIEGO MA Mar 11, 2018 3:34 PM Not taking ATORVASTATIN 10 MG TABLET >> Claire Samaniego MA 03/11/2018 3:35 PM >> CLAIRE SAMANIEGO MAMar 11, 2018 3:35 PM No longer taking this strength. 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 REPOSITORY Comments: LOWER LUMBAR Gram Stain Gram Stain 4+ Red Blood Cells No White Blood Cells No organisms seen Wound Culture ORGANISM 1: Pseudomonas aeroginosa Amount Growth 2+ Pseudomonas aeroginosa: REACTION Cefepime $ 4 S Ceftazidime *NF 4 S Ciprofloxacin $ <=0.25 S Gentamicin $ 4 S Imipenem *NF 2 S Levofloxacin $ 0.5 S Tobramycin $ <=1 S (NF) indicates non-formulary drug at [facility]. Approval by Infectious Disease Specialist required before non-formulary drugs may be ordered and/or dispensed. Cult, Anaerobic No anaerobic bacteria isolated. Performed By: #### M100.1500 #### [facility] [place], [address] HH, HEMOGLOBIN AND Collected: 02/28/2018 Status: F Source: [place] HEMATOCRIT 10:[address] [facility] REPOSITORY TYPE CODE TESTS RESULT OUT OF RANGE REFERENCE UNITS LAB L100.1300 13.0-16.5 g/dl Low HGB 9.9 LAB L100.1400 40-54 % Low HCT 32.0 Performed By: #### L100.0600 #### [facility] [address] [place], [place], [id number] CBC W/DIFF, AUTOMATED Collected: 02/27/2018 Status: F Source: [place] 1:[address] [facility] REPOSITORY TYPE CODE TESTS RESULT OUT OF RANGE REFERENCE UNITS LAB L100.1000 4.4-11.0 K/mm3 Normal WBC 5.1 LAB L100.1200 4.6-6.2 M/mm3 Low RBC 2.90 LAB L100.1300 13.0-16.5 g/dl Low HGB 9.6 LAB L100.1400 40-54 % Low HCT 31.9 LAB L100.1500 80-94 fL High MCV 110.0 LAB L100.1600 27.0-32.0 pg High MCH 33.1 LAB L100.1700 32-36 g/gl Low MCHC 30.1 LAB L100.1810 11.6-14.6 % High RDW CV 15.2 LAB L100.1820 35.1-43.9 fl High RDW SD 59.4 LAB L100.1900 150-450 K/mm3 Normal PLT 301 LAB L100.2000 6.2-12.0 fl Normal MPV 11.2 LAB L100.2100 47-70 % Normal NEUT% 48.6 LAB L100.2200 19-41 % Normal LY% 26.0 LAB L100.2300 0-10 % High MONO% 17.3 LAB L100.2400 0-5 % High EO% 7.5 LAB L100.2500 0-1 % Normal BASO% 0.6 LAB L100.2550 0.0-0.9 % Normal IM GRAN % 0.000 Result Comment: IG% - Immature Granulocytes (promyelocytes, myelocytes and metamyelocytes) > 1% indicates that a LEFT SHIFT is Present. LAB L100.2620 2.0-7.7 X10 3/uL Normal Absolute Neut 2.5 LAB L100.2720 0.83-4.51 X10 3/ul Normal Absolute Lymph 1.32 Performed By: #### L100.0100 #### [facility] [address] [place], [place], [address] PSA,TOTAL - ANNUAL Collected: 02/27/2018 Status: F Source: [place] SCREEN 1:[address] [facility] REPOSITORY TYPE CODE TESTS RESULT OUT OF RANGE REFERENCE UNITS LAB L501.9910 0.00-4.00 ng/mL Normal PSA,TOT 0.42 SCREEN Result Comment: This test was performed using the TPSA assay method for the [employer] App chemistry system. Values obtained with different assay methods cannot be used interchangably. When changing PSA assays in the course of monitoring a patient, additional sequential testing should be carried out to confirm baseline values. Performed By: #### L501.9910 #### [facility] [address] [place], [place], [address] [id number], S Collected: Status: F Source: [place] 02/27/2018 1:[address] [facility] REPOSITORY TYPE CODE TESTS RESULT OUT OF RANGE REFERENCE UNITS LAB L3890.5000 0.6-2.4 mg/L High B2 10.6 [id number] Result Comment: Siemens Immulite 2000 Immunochemiluminometric assay (ICMA) Performed at: - [facility] [id number] Medical Technologist Microbiology: Juan Antonio Mancera MD, Phone: [phone] Performed By: #### L3890.5000 #### [facility] (refer to report for specific site) refer to report for address and phone number PROTEIN ELECTROPH, S Collected: 02/27/2018 Status: F Source: [place] 1:[address] [facility] REPOSITORY TYPE CODE TESTS RESULT OUT OF RANGE REFERENCE UNITS LAB L3100.3500 6.0-8.5 g/dL Normal PROTEIN,TOTAL 6.9 LAB L3100.3600 2.9-4.4 g/dL Normal ALBUMIN 3.0 LAB L3100.3700 0.0-0.4 g/dL Normal ALPHA-1 GLOBUL 0.3 LAB L3100.3800 0.4-1.0 g/dL Normal ALPHA-2 GLOBUL 0.9 LAB L3100.3900 0.7-1.3 g/dL Normal BETA GLOBULIN 1.1 LAB L3100.4000 0.4-1.8 g/dL Normal GAMMA GLOBULIN 1.7 LAB L3100.4110 Normal M-SPIKE Result Comment: Not Observed LAB L3100.4200 2.2-3.9 g/dL GLOBULIN, TOTAL Normal 3.9 LAB L3100.4300 0.7-1.7 A/G RATIO Normal 0.8 LAB L3100.4320 . INTERPRETATION Normal Comment Result Comment: Protein electrophoresis scan will follow via computer, mail, or nursery school attendant delivery. LAB L3100.4340 . Normal NOTE: Comment Result Comment: The SPE pattern appears essentially unremarkable. Evidence of monoclonal protein is not apparent. Performed at: [facility] [address] [id number] Medical Technologist Microbiology: Noah Sy PhD, Phone: [phone] Performed By: #### L3100.3450 #### [facility] (refer to report for specific site) refer to report for address and phone number PROTEIN ELECTRO.UR-RANDOM Collected: Status: F Source: [place] 02/27/2018 1:[address] [facility] REPOSITORY TYPE CODE TESTS RESULT OUT OF RANGE REFERENCE UNITS LAB L3600.4100 Not Estab. mg/dL Normal 14.9 PROTEIN,UR LAB L3600.4200 . % Normal 22.6 ALBUMIN,UR LAB L3600.4300 . % Normal 2.6 LXXFM-0-COCA ,U LAB L3600.4400 . % Normal 11.7 IOKYT-7-MTUV ,U LAB L3600.4500 . % Normal BETA 27.3 GLOB,U LAB L3600.4600 . % Normal GAMMA 35.9 GLOB,U LAB L3600.4720 Normal M-SPIKE,U Result Comment: Not Observed LAB L3600.4800 . Normal NOTE Comment Result Comment: Protein electrophoresis scan will follow via computer, mail, or nursery school attendant delivery. Performed at: [facility] [address] [id number] Medical Technologist Microbiology: Noah Sy PhD, Phone: [phone] Performed By: #### L3600.4000 #### [facility] (refer to report for specific site) refer to report for address and phone number COMPREHENSIVE METABOLIC Collected: 02/24/2018 Status: F Source: [facility] 1:[address] [facility] REPOSITORY TYPE CODE TESTS RESULT OUT OF RANGE REFERENCE UNITS LAB L501.0100 74-106 mg/dL Normal GLU 95 Result Comment: Please note revised GLUCOSE reference range effective 2017. LAB L501.1000 7-18 mg/dL High BUN 35 LAB L501.1100 0.70-1.30 mg/dL High CREAT,SERUM 1.42 Result Comment: The validity of the calculated GFR AND GFRAA in patients over 70 years has not been determined. Clinical correlation is essential. LAB L501.1110 >60 mL/min Low EST GFR 52 Result Comment: Non- GFR Calc LAB L501.1115 >60 mL/min Normal EST GFR - AA 63 Result Comment: GFR Calc LAB L501.1300 10-20 RATIO High BUN/CRE 24.6 LAB L501.1500 6.4-8.2 g/dL High T PROT 8.3 LAB L501.1800 3.2-5.0 g/dL Low ALB 3.0 LAB L501.1950 2.2-4.2 g/dL High GLOB 5.3 LAB L501.2000 0.9-2.4 RATIO Low A/G 0.6 LAB L501.2200 8.5-10.1 mg/dL CA Normal 8.6 LAB L501.4100 15-37 U/L High AST 39 LAB L501.4305 45-117 U/L High ALK P 280 LAB L501.4405 16-61 U/L Normal ALT 18 LAB L501.4600 0.20-1.00 mg/dL T Normal BILI 0.50 LAB L501.5300 136-145 mmol/L NA Normal 142 LAB L501.5600 3.5-5.1 mmol/L K Normal 3.9 LAB L501.5900 98-107 mmol/L CL Normal 106 LAB L501.6100 21.0-32.0 mmol/L Normal CO2 24.0 LAB L501.6200 5-15 Normal GAP 12 Performed By: #### L500.4050 #### [facility] [address] [place], [address] SPINE LUMBAR WITHOUT Observed: 02/24/2018 Status: F Source: [place] CONTRAST 1:[address] [facility] REPOSITORY [facility] Imaging Services [address] [place] [address] Spine Lumbar without Contrast MR#: [id number] Acct: [id number] Name: CUONG MARSHALL Rep #: [id number] : 1945 M 72 From: Luca Stratton MD PCP: Linus Lindquist DO Status: REG CLI Study: Spine Lumbar without Contrast Date of Exam: 02/24/18 Exam# [id number] Ordering Dr: Monica Wick DO STUDY: CT LUMBAR SPINE WITHOUT CONTRAST REASON FOR EXAM: Male, 72 years old. Nonhealing postop lumbar ulcer RADIATION DOSAGE (If Supplied By Facility): CTDIvol = ( 26.08 ) mGy, DLP = ( 783.63 ) mGycm TECHNIQUE: The patient was scanned in a multi detector CT scanner. High resolution transaxial imaging was performed. Images were obtained from L1 to mid sacrum. Sagittal and coronal images were reconstructed. Individualized dose optimization techniques were used for this CT. COMPARISON: Previous images of 11/22/2016 are not available for comparison. FINDINGS: Normal lumbar lordosis. There is no substantial scoliosis. There are destructive/sclerotic changes of L5. There is a slight decrease in vertical height of L3 with a mild mixed sclerotic pattern of such. There is faint sclerosis of the L1 body also. L1-2: There is endplate spondylosis at the L1-2 level. Disc spacing is preserved. There are bilateral hypertrophic degenerative facet changes. There is mild central canal stenosis caused by bulging annulus and degenerative facet changes. There is no foraminal narrowing. L2-3: There is mild endplate spondylosis. There are mild bilateral hypertrophic degenerative facet changes. There is moderately severe central canal stenosis caused by bulging annulus and ligamentum flavum hypertrophy. L3-4: There is endplate spondylosis. There are mild bilateral hypertrophic degenerative facet changes. There is severe central canal stenosis caused by degenerative facet changes, bulging annulus, and ligamentum flavum hypertrophy. Disc spacing is preserved. L4-5: Disc spacing is preserved. There are lytic changes with sclerotic reaction of the L5 body. There are mild bilateral degenerative facet changes. There are status post left L4 laminectomy changes. There is moderate central canal stenosis. There is no foraminal narrowing. L5-S1: There are mild bilateral degenerative facet changes. Disc spacing is preserved. There is no central canal stenosis or foraminal narrowing. There is a small sclerotic focus of the right iliac wing consistent with metastatic lesion. There is increased soft tissue density of the posterior paraspinous soft tissues with changes consistent with postoperative change. There is no evidence of soft tissue gas or abnormal fluid collection. CT/Spine Lumbar without Contrast IMPRESSION: Findings as described above. The previous CT of November 22, 2016 was not available for comparison. Electronically Signed: Luca Stratton MD at 17:08 EDT , Service support , CC: Monica Wick DO; Linus Lindquist DO Cloth Designer: Signed Observed: 02/21/2018 Status: F Source: [place] CULTURE, WOUND 2:[address] [facility] REPOSITORY FAX RESULTS TO @[phone] CALL RESULTS TO [facility] Comments: LUMBAR ULCER Gram Stain Gram Stain No White Blood Cells No organisms seen Wound Culture #2 There are no CLSI standards for interpretation of this Drug/Organism combination. #3 RESULTS CALLED TO WOUND CENTER NURSE LINE 02/25/18 0744 Jazz Schwarz. 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 resistant Staph. aureus Amount Growth Very Rare Burkholderia cepacia: REACTION Cefepime $ 8 S Ceftazidime *NF 2 S Ceftriaxone $ 32 I Ciprofloxacin $ >=4 R Gentamicin $ <=1 S Imipenem *NF <=0.25 S Levofloxacin $ >=8 R Piperacillin/Tazobactam $$ <=4 S Tobramycin $ <=1 S Trimethoprim/Sulfametho $ 80 R (NF) indicates non-formulary drug at [facility]. Approval by Infectious Disease Specialist required before non-formulary drugs may be ordered and/or dispensed. Meth. resistant Staph. aureus: REACTION Benzylpenicillin NF >=0.5 R Cefoxitin *NF + Clindamycin $$ >=8 R Inducable Clindamycin Resistan - Erythromycin $ >=8 R Gentamicin $ <=0.5 S Levofloxacin $ >=8 R Linezolid $$$$ 2 S Oxacillin NF >=4 R Tigecycline $$$$ <=0.12 S Rifampin $$ <=0.5 S Tetracycline NF <=1 S Trimethoprim/Sulfametho $ <=10 S Vancomycin $ 1 S (NF) indicates non-formulary drug at [facility]. Approval by Infectious Disease Specialist required before non-formulary drugs may be ordered and/or dispensed. * CLSI guidelines does not recommend testing of cephalosporins. This interpretation is deduced from Beta-lactam/penicillin results. Performed By: #### M100.1400 #### [facility] [address] [facility] [place], [place], [address] ERYTHROCYTE SED RATE Collected: 02/20/2018 Status: F Source: [place] 12:[address] [facility] REPOSITORY TYPE CODE TESTS RESULT OUT OF RANGE REFERENCE UNITS LAB L102.0000 0-20 mm/hr High SED RATE 65 Performed By: #### L101.9900 #### [facility] [address] [place], [place], [address] CRP Collected: 02/20/2018 Status: F Source: [place] 12:[address] [facility] REPOSITORY TYPE CODE TESTS RESULT OUT OF RANGE REFERENCE UNITS LAB L501.6710 0.0-3.0 mg/L High 16.40 C-REACTIVE PROT Result Comment: C-Reactive Protein (CRP) provides useful information for the diagnosis, therapy and monitoring of inflammatory processes and associated diseases. For the evaluation of Relative Risk for Cardiovascular Disease, a High Sensitivity CRP (HSCRP) should be ordered. Performed By: #### L501.6710 #### [facility] [address] [facility] [place], [place], [address] Observed: 02/14/2018 Status: F Source: [place] CULTURE, DEEP WOUND 12:[address] [facility] REPOSITORY Gram Stain Gram Stain 3+ Red Blood Cells No White Blood Cells No organisms seen Wound Culture Gram positive briana suggestive of a diptheroid. Clinical correlation necessary, Possible skin contamination. There are no CLSI standards for interpretation of this Drug/Organism combination. ORGANISM 1: Gram positive briana Amount Growth Very Rare Cult, Anaerobic No growth in 5 days. Performed By: #### M100.1500 #### [facility] [address] [facility] [address] [facility] [place], [address] RENAL PROFILE Collected: 02/14/2018 Status: F Source: [place] 10:[address] [facility] REPOSITORY TYPE CODE TESTS RESULT OUT OF RANGE REFERENCE UNITS LAB L501.0100 74-106 mg/dL High GLU 109 Result Comment: Fasting Glucose result from 100 to 125 mg/dL suggests IMPAIRED HOMEOSTASIS per A.D.A. criteria. Please note revised GLUCOSE reference range effective 2017. LAB L501.1000 7-18 mg/dL High BUN 36 LAB L501.1100 0.70-1.30 mg/dL High CREAT,SERUM 2.00 Result Comment: The validity of the calculated GFR AND GFRAA in patients over 70 years has not been determined. Clinical correlation is essential. LAB L501.1110 >60 mL/min Low EST GFR 35 Result Comment: Non- GFR Calc LAB L501.1115 >60 mL/min Low EST GFR - AA 42 Result Comment: GFR Calc LAB L501.1255 ml/min Normal Estimated CRCL 31.83 LAB L501.1300 10-20 RATIO Normal BUN/CRE 18.0 LAB L501.1800 3.2-5. g/dL Low 0 ALB 2.7 LAB L501.2200 8.5-10 mg/dL Low .1 CA 8.4 LAB L501.2300 2.5-4. mg/dL Normal 9 PHOS 3.6 LAB L501.5300 136-14 mmol/L Normal 5 NA 139 LAB L501.5600 3.5-5. mmol/L Normal 1 K 3.5 LAB L501.5900 98-107 mmol/L Normal CL 107 LAB L501.6100 21.0-3 mmol/L Normal 2.0 CO2 26.0 Performed By: #### L500.3600 #### [facility] [address] [facility] [place], [place], [address] CBC W/DIFF, AUTOMATED Collected: 02/14/2018 Status: F Source: [place] 10:[address] [facility] REPOSITORY TYPE CODE TESTS RESULT OUT OF RANGE REFERENCE UNITS LAB L100.1000 4.4-11.0 K/mm3 Normal WBC 5.6 LAB L100.1200 4.6-6.2 M/mm3 Low RBC 3.05 LAB L100.1300 13.0-16.5 g/dl Low HGB 10.1 LAB L100.1400 40-54 % Low HCT 32.5 LAB L100.1500 80-94 fL High MCV 106.6 LAB L100.1600 27.0-32.0 pg High MCH 33.1 LAB L100.1700 32-36 g/gl Low MCHC 31.1 LAB L100.1810 11.6-14.6 % High RDW CV 14.8 LAB L100.1820 35.1-43.9 fl High RDW SD 55.8 LAB L100.1900 150-450 K/mm3 Normal PLT 297 LAB L100.2000 6.2-12.0 fl Normal MPV 9.6 LAB L100.2100 47-70 % Normal NEUT% 49.1 LAB L100.2200 19-41 % Normal LY% 26.2 LAB L100.2300 0-10 % High MONO% 14.5 LAB L100.2400 0-5 % High EO% 9.5 LAB L100.2500 0-1 % Normal BASO% 0.5 LAB L100.2550 0.0-0.9 % Normal IM GRAN % 0.200 Result Comment: IG% - Immature Granulocytes (promyelocytes, myelocytes and metamyelocytes) > 1% indicates that a LEFT SHIFT is Present. LAB L100.2620 2.0-7.7 X10 3/uL Normal Absolute Neut 2.7 LAB L100.2720 0.83-4.51 X10 3/ul Normal Absolute Lymph 1.46 Performed By: #### L100.0100 #### [facility] [address] [place], [address] IRON+IRON BINDING Collected: 02/14/2018 Status: F Source: [facility] 10:[address] [facility] REPOSITORY TYPE CODE TESTS RESULT OUT OF RANGE REFERENCE UNITS LAB L503.6075 250-450 ug/dL Low TIBC 221 LAB L503.6150 65-175 ug/dL IRON Normal 65 LAB L503.6250 15.0-55.0 % IRON Normal SATURATION 29.4 Performed By: #### L503.6030, L503.6550 #### [facility] [address] [place], [address] FERRITIN Collected: 02/14/2018 Status: F Source: [place] 10:[address] [facility] REPOSITORY TYPE CODE TESTS RESULT OUT OF RANGE REFERENCE UNITS LAB L503.6550 26-388 ng/mL Normal FERRITIN 168 Performed By: #### L503.6030, L503.6550 #### [facility] [address] [place], [address] Observed: 01/31/2018 Status: F Source: [place] CULTURE, DEEP WOUND 12:[address] [facility] REPOSITORY Gram Stain Gram Stain Very Rare Gram positive rods 4+ Red Blood Cells No White Blood Cells Wound Culture Copy of report sent to Infection Control Printer [id number] 02/03/18 0916 EMILY. RESULTS CALLED TO AYAD 02/03/18 0916 Jazz Schwarz. REPORT READ BACK BY SAME. ORGANISM 1: Meth. resistant Staph. 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 Approval by Infectious Disease Specialist required before non-formulary drugs may be ordered and/or dispensed. * CLSI guidelines does not recommend testing of cephalosporins. This interpretation is deduced from Beta-lactam/penicillin results. Burkholderia cepacia: REACTION Cefepime $ 8 S Ceftazidime *NF 16 I Ceftriaxone $ >=64 R Ciprofloxacin $ <=0.25 S Gentamicin $ 4 S Imipenem *NF 2 S Levofloxacin $ 1 S Piperacillin/Tazobactam $$ >=128 R Tobramycin $ <=1 S Trimethoprim/Sulfametho $ 80 R (NF) indicates non-formulary drug at [facility]. Approval by Infectious Disease Specialist required before non-formulary drugs may be ordered and/or dispensed. Cult, Anaerobic No anaerobic bacteria isolated. Performed By: #### M100.1500 #### [facility] [address] [place], [address] HH, HEMOGLOBIN AND Collected: 01/31/2018 Status: F Source: [place] HEMATOCRIT 10:[address] [facility] REPOSITORY TYPE CODE TESTS RESULT OUT OF RANGE REFERENCE UNITS LAB L100.1300 13.0-16.5 g/dl Low HGB 10.4 LAB L100.1400 40-54 % Low HCT 32.7 Performed By: #### L100.0600 #### [facility] [address] [place], [address] Observed: 01/17/2018 Status: F Source: [place] CULTURE, DEEP WOUND 1:[address] [facility] REPOSITORY Gram Stain Gram Stain 4+ Red Blood Cells Rare Gram positive cocci Rare Gram positive rods No White Blood Cells Wound Culture #2 There are no CLSI standards for interpretation of this Drug/Organism combination. ORGANISM 1: Burkholderia cepacia Amount Growth 2+ ORGANISM 2: Corynebacterium minutissimum Amount Growth 2+ Burkholderia cepacia: REACTION Cefepime $ 2 S Ceftazidime *NF 4 S Ceftriaxone $ >=64 R Ciprofloxacin $ 0.5 S Gentamicin $ 2 S Imipenem *NF 2 S Levofloxacin $ 1 S Piperacillin/Tazobactam $$ 32 I Tobramycin $ <=1 S Trimethoprim/Sulfametho $ 80 R (NF) indicates non-formulary drug at [facility]. Approval by Infectious Disease Specialist required before non-formulary drugs may be ordered and/or dispensed. Cult, Anaerobic No anaerobic bacteria isolated. Performed By: #### M100.1500 #### [facility] [address] [place], [place], [address] CBC W/DIFF, AUTOMATED Collected: 01/17/2018 Status: F Source: [place] 12:[address] [facility] REPOSITORY TYPE CODE TESTS RESULT OUT OF RANGE REFERENCE UNITS LAB L100.1000 4.4-11.0 K/mm3 Normal WBC 6.2 LAB L100.1200 4.6-6.2 M/mm3 Low RBC 3.00 LAB L100.1300 13.0-16.5 g/dl Low HGB 9.9 LAB L100.1400 40-54 % Low HCT 32.6 LAB L100.1500 80-94 fL High MCV 108.7 LAB L100.1600 27.0-32.0 pg High MCH 33.0 LAB L100.1700 32-36 g/gl Low MCHC 30.4 LAB L100.1810 11.6-14.6 % High RDW CV 16.9 LAB L100.1820 35.1-43.9 fl High RDW SD 67.2 LAB L100.1900 150-450 K/mm3 Normal PLT 304 LAB L100.2000 6.2-12.0 fl Normal MPV 9.6 LAB L100.2100 47-70 % Normal NEUT% 57.5 LAB L100.2200 19-41 % Normal LY% 22.0 LAB L100.2300 0-10 % High MONO% 12.8 LAB L100.2400 0-5 % High EO% 7.2 LAB L100.2500 0-1 % Normal BASO% 0.5 LAB L100.2550 0.0-0.9 % Normal IM GRAN % 0.000 Result Comment: IG% - Immature Granulocytes (promyelocytes, myelocytes and metamyelocytes) > 1% indicates that a LEFT SHIFT is Present. LAB L100.2620 2.0-7.7 X10 3/uL Normal Absolute Neut 3.6 LAB L100.2720 0.83-4.51 X10 3/ul Normal Absolute Lymph 1.37 Performed By: #### L100.0100 #### [facility] [address] [place], [address] RENAL PROFILE Collected: 01/17/2018 Status: F Source: [place] 12:[address] [facility] REPOSITORY TYPE CODE TESTS RESULT OUT OF RANGE REFERENCE UNITS LAB L501.0100 74-106 mg/dL High GLU 133 Result Comment: Fasting Glucose result greater than or equal to 126 mg/dL suggests DIABETES MELLITUS per A.D.A. criteria. Please note revised GLUCOSE reference range effective 2017. LAB L501.1000 7-18 mg/dL High BUN 46 LAB L501.1100 0.70-1.30 mg/dL High CREAT,SERUM 2.70 Result Comment: The validity of the calculated GFR AND GFRAA in patients over 70 years has not been determined. Clinical correlation is essential. LAB L501.1110 >60 mL/min Low EST GFR 25 Result Comment: Non- GFR Calc LAB L501.1115 >60 mL/min Low EST GFR - AA 30 Result Comment: GFR Calc LAB L501.1300 10-20 RATIO Normal BUN/CRE 17.0 LAB L501.1800 3.2-5.0 g/dL Low ALB 2.7 LAB L501.2200 8.5-10.1 mg/dL CA Normal 8.7 LAB L501.2300 2.5-4.9 mg/dL Normal PHOS 3.8 LAB L501.5300 136-145 mmol/L NA Normal 144 LAB L501.5600 3.5-5.1 mmol/L Low K 3.3 LAB L501.5900 98-107 mmol/L CL Normal 107 LAB L501.6100 21.0-32.0 mmol/L Normal CO2 26.0 Performed By: #### L500.3600 #### [facility] [address] [place], [address] Observed: 01/10/2018 Status: F Source: [place] CULTURE, DEEP WOUND 3:[address] [facility] REPOSITORY Gram Stain Gram Stain No White Blood Cells No organisms seen Wound Culture No growth aerobically. Cult, Anaerobic No growth in 5 days. Performed By: #### M100.1500 #### [facility] [address] [place], [address] HH, HEMOGLOBIN AND Collected: 01/10/2018 Status: F Source: [place] HEMATOCRIT 10:[address] [facility] REPOSITORY TYPE CODE TESTS RESULT OUT OF RANGE REFERENCE UNITS LAB L100.1300 13.0-16.5 g/dl Low HGB 10.3 LAB L100.1400 40-54 % Low HCT 32.2 Performed By: #### L100.0600 #### [facility] [address] [place], [address] CBC W/DIFF, AUTOMATED Collected: 01/03/2018 Status: F Source: [place] 10:[address] [facility] REPOSITORY TYPE CODE TESTS RESULT OUT OF RANGE REFERENCE UNITS LAB L100.1000 4.4-11.0 K/mm3 Normal WBC 6.6 LAB L100.1200 4.6-6.2 M/mm3 Low RBC 2.86 LAB L100.1300 13.0-16.5 g/dl Low HGB 9.7 LAB L100.1400 40-54 % Low HCT 29.9 LAB L100.1500 80-94 fL High MCV 104.5 LAB L100.1600 27.0-32.0 pg High MCH 33.9 LAB L100.1700 32-36 g/gl Normal MCHC 32.4 LAB L100.1810 11.6-14.6 % High RDW CV 16.3 LAB L100.1820 35.1-43.9 fl High RDW SD 59.7 LAB L100.1900 150-450 K/mm3 Normal PLT 260 LAB L100.2000 6.2-12.0 fl Normal MPV 9.7 LAB L100.2100 47-70 % Normal NEUT% 53.3 LAB L100.2200 19-41 % Normal LY% 22.2 LAB L100.2300 0-10 % High MONO% 15.7 LAB L100.2400 0-5 % High EO% 7.8 LAB L100.2500 0-1 % Normal BASO% 0.8 LAB L100.2550 0.0-0.9 % Normal IM GRAN % 0.200 Result Comment: IG% - Immature Granulocytes (promyelocytes, myelocytes and metamyelocytes) > 1% indicates that a LEFT SHIFT is Present. LAB L100.2620 2.0-7.7 X10 3/uL Normal Absolute Neut 3.5 LAB L100.2720 0.83-4.51 X10 3/ul Normal Absolute Lymph 1.46 Performed By: #### L100.0100 #### [facility] [address] [place], [address] Observed: 12/27/2017 Status: F Source: [place] CULTURE, DEEP WOUND 2:45 PM [facility] REPOSITORY Comments: LUMBAR ULCER. Gram Stain Gram Stain 4+ Red Blood Cells No White Blood Cells No organisms seen Wound Culture #3 There are no CLSI standards for interpretation of this Drug/Organism combination. RESULTS CALLED TO /Revinate50 NURSE LINE 12/30/17 0828 Martha Soto. Copy of report sent to Infection Control Printer [id number] 12/30/17 0851 DCANNON. ORGANISM 1: Meth. resistant Staph. aureus Amount Growth 1+ ORGANISM 2: Pseudomonas spp Amount Growth 1+ ORGANISM 3: Corynebacterium amycolatum Amount Growth 1+ Meth. resistant Staph. aureus: REACTION Benzylpenicillin NF >=0.5 R Cefoxitin *NF + Clindamycin $$ >=8 R Inducable Clindamycin Resistan - Erythromycin $ >=8 R Gentamicin $ <=0.5 S Levofloxacin $ >=8 R Linezolid $$$$ 2 S Oxacillin NF >=4 R Tigecycline $$$$ <=0.12 S Rifampin $$ <=0.5 S Tetracycline NF <=1 S Trimethoprim/Sulfametho $ <=10 S Vancomycin $ 1 S (NF) indicates non-formulary drug at [facility]. Approval by Infectious Disease Specialist required before non-formulary drugs may be ordered and/or dispensed. * CLSI guidelines does not recommend testing of cephalosporins. This interpretation is deduced from Beta-lactam/penicillin results. Pseudomonas spp: REACTION Ceftazidime *NF 2 S Ciprofloxacin $ 2 I Gentamicin $ <=1 S Imipenem *NF <=0.25 S Levofloxacin $ 4 I Piperacillin/Tazobactam $$ 8 S Tobramycin $ <=1 S (NF) indicates non-formulary drug at [facility]. Approval by Infectious Disease Specialist required before non-formulary drugs may be ordered and/or dispensed. Cult, Anaerobic No anaerobic bacteria isolated. Performed By: #### M100.1500 #### [facility] [address] [place], [address] HH, HEMOGLOBIN AND Collected: 12/27/2017 Status: F Source: [place] HEMATOCRIT 10:[address] [facility] REPOSITORY TYPE CODE TESTS RESULT OUT OF RANGE REFERENCE UNITS LAB L100.1300 13.0-16.5 g/dl Low HGB 9.7 LAB L100.1400 40-54 % Low HCT 29.4 Performed By: #### L100.0600 #### [facility] [address] [place], [place], [address] RENAL PROFILE Collected: 12/27/2017 Status: F Source: [place] 10:[address] [facility] REPOSITORY TYPE CODE TESTS RESULT OUT OF RANGE REFERENCE UNITS LAB L501.0100 74-106 mg/dL High GLU 125 Result Comment: Fasting Glucose result from 100 to 125 mg/dL suggests IMPAIRED HOMEOSTASIS per A.D.A. criteria. Please note revised GLUCOSE reference range effective 2017. LAB L501.1000 7-18 mg/dL High BUN 44 LAB L501.1100 0.70-1.30 mg/dL High CREAT,SERUM 1.83 Result Comment: The validity of the calculated GFR AND GFRAA in patients over 70 years has not been determined. Clinical correlation is essential. LAB L501.1110 >60 mL/min Low EST GFR 39 Result Comment: Non- GFR Calc LAB L501.1115 >60 mL/min Low EST GFR - AA 47 Result Comment: GFR Calc LAB L501.1255 ml/min Normal Estimated CRCL 34.78 LAB L501.1300 10-20 RATIO High BUN/CRE 24.0 LAB L501.1800 3.2-5. g/dL Low 0 ALB 3.0 LAB L501.2200 8.5-10 mg/dL Low .1 CA 8.1 LAB L501.2300 2.5-4. mg/dL Normal 9 PHOS 2.6 LAB L501.5300 136-14 mmol/L Normal 5 NA 139 LAB L501.5600 3.5-5. mmol/L Normal 1 K 3.6 LAB L501.5900 98-107 mmol/L Normal CL 104 LAB L501.6100 21.0-3 mmol/L Normal 2.0 CO2 23.0 Performed By: #### L500.3600 #### [facility] [address] [place], [address] Observed: 12/13/2017 Status: F Source: [place] CULTURE, DEEP WOUND 2:[address] [facility] REPOSITORY Comments: LOWER LUMBAR ULCER Gram Stain Gram Stain 2+ Red Blood Cells No White Blood Cells No organisms seen Wound Culture Copy of report sent to Infection Control Printer [id number] 12/15/17 0917 RADHIKA. RESULTS CALLED LEFT MESSAGE 12/15/17 0917 Rubia Contreras. ORGANISM 1: Meth. resistant Staph. aureus Amount Growth 3+ Meth. resistant Staph. aureus: REACTION Benzylpenicillin NF >=0.5 R Cefoxitin *NF + Clindamycin $$ <=0.25 S Inducable Clindamycin Resistan - Erythromycin $ 0.5 S Gentamicin $ <=0.5 S Levofloxacin $ >=8 R Linezolid $$$$ 2 S Oxacillin NF >=4 R Tigecycline $$$$ 0.25 S Rifampin $$ <=0.5 S Tetracycline NF >=16 R Trimethoprim/Sulfametho $ >=320 R Vancomycin $ 1 S (NF) indicates non-formulary drug at [facility]. Approval by Infectious Disease Specialist required before non-formulary drugs may be ordered and/or dispensed. * CLSI guidelines does not recommend testing of cephalosporins. This interpretation is deduced from Beta-lactam/penicillin results. Cult, Anaerobic No anaerobic bacteria isolated. Performed By: #### M100.1500 #### [facility] [address] [place], [address] CBC W/DIFF, AUTOMATED Collected: 12/13/2017 Status: F Source: [place] 10:[address] [facility] REPOSITORY TYPE CODE TESTS RESULT OUT OF RANGE REFERENCE UNITS LAB L100.1000 4.4-11.0 K/mm3 Normal WBC 6.4 LAB L100.1200 4.6-6.2 M/mm3 Low RBC 2.71 LAB L100.1300 13.0-16.5 g/dl Low HGB 9.1 LAB L100.1400 40-54 % Low HCT 28.1 LAB L100.1500 80-94 fL High MCV 103.7 LAB L100.1600 27.0-32.0 pg High MCH 33.6 LAB L100.1700 32-36 g/gl Normal MCHC 32.4 LAB L100.1810 11.6-14.6 % High RDW CV 15.9 LAB L100.1820 35.1-43.9 fl High RDW SD 58.9 LAB L100.1900 150-450 K/mm3 Normal PLT 281 LAB L100.2000 6.2-12.0 fl Normal MPV 9.2 LAB L100.2100 47-70 % Normal NEUT% 49.2 LAB L100.2200 19-41 % Normal LY% 27.8 LAB L100.2300 0-10 % High MONO% 17.3 LAB L100.2400 0-5 % Normal EO% 4.9 LAB L100.2500 0-1 % Normal BASO% 0.6 LAB L100.2550 0.0-0.9 % Normal IM GRAN % 0.200 Result Comment: IG% - Immature Granulocytes (promyelocytes, myelocytes and metamyelocytes) > 1% indicates that a LEFT SHIFT is Present. LAB L100.2620 2.0-7.7 X10 3/uL Normal Absolute Neut 3.1 LAB L100.2720 0.83-4.51 X10 3/ul Normal Absolute Lymph 1.77 Performed By: #### L100.0100 #### [facility] [address] [place], [address] ECHOCARDIOGRAM COMPLETE Observed: 12/02/2017 Status: F Source: [place] 3:[address] [facility] REPOSITORY [facility] Cardiovascular Services [address] [place] [address] Echo Complete 11/27/17 1351 MR#: [id number] Acct: [id number] Name: CUONG MARSHALL Rep #: [id number] : 1945 72 From: Micky Mauro MD Attending Dr: Zunilda HAYES,Micky Status: REG CLI Ordering Dr: Micky Mauro MD Date: 11/27/17 Location: [facility] Sex: M C Admitted: Reason For Study: SOB Procedure This was a 2D Doppler, Color Flow transthoracic echocardiogram. Exam performed in department. Left Ventricle Normal LV size. Left ventricular systolic function is normal. The estimated ejection fraction is 55 %. Transmitral doppler flow suggestive of impaired relaxation of left ventricle. Transmitral diastolic flow velocities suggest mild (stage 1) diastolic dysfunction (reversed pattern). No regional wall motion abnormalities noted. Right Ventricle Normal RV size. Normal systolic function. Atria The left atrium is mildly enlarged. Normal right atrium. Mitral Valve Normal mitral valve. Tricuspid Valve Normal tricuspid valve. Mild tricuspid valve insufficiency. Pulmonary artery systolic pressure is 36 mmHg. Aortic Valve Normal aortic valve. Pulmonic Valve Normal pulmonic valve. Great Vessels Normal aortic root. The pulmonary artery is normal size. Normal inferior vena cava. Pericardium/Pleural No pericardial effusion. MMode/2D Measurements AND Calculations LVIDd: 5.5 cm IVSd: 1.00 cm LVOT diam: 2.0 cm LVIDs: 3.8 cm LVPWd: 1.1 cm LVOT area: 3.3 cm2 FS: 30.4 % Ao root diam: 4.5 cm LAV(MOD-bp): 83.9 ml Aortic Valve Planimetry: 2.1 cm2 LA dimension: 4.9 cm LAV(MOD-bp) Indexed: 44.1 ml/m2 LAV(MOD-sp2): 73.0 ml LAV(MOD-sp4): 80.3 ml LA A4 area: 22.8 cm2 RA A4 area: 12.1 cm2 Time Measurements MV dec time: 0.28 sec Doppler Measurements AND Calculations MV E max roberto: 58.2 cm/sec Lat Peak E' Roberto: 11.7 cm/sec Med Peak E' Roberto: 4.8 cm/sec MV A max roberto: 92.2 cm/sec E/E' lat: 5.0 E/E' med: 12.1 MV E/A: 0.63 MV V2 max: 113.2 cm/sec MV P1/2t max roberto: 91.2 cm/sec Ao V2 max: 152.7 cm/sec MV max P.1 mmHg MV P1/2t: 95.9 msec Ao max P.3 mmHg MV V2 mean: 61.6 cm/sec MV dec slope: 278.5 cm/sec2 Ao V2 mean: 91.2 cm/sec MV mean P.8 mmHg MVA(P1/2t): 2.3 cm2 Ao mean P.0 mmHg MV V2 VTI: 29.1 cm Ao V2 VTI: 28.2 cm MVA(VTI): 2.9 cm2 SIGRID(I,D): 3.0 cm2 SIGRID(V,D): 2.7 cm2 LV V1 max: 126.4 cm/sec SV(LVOT): 85.5 ml PA V2 max: 104.0 cm/sec LV V1 max P.4 mmHg LV V1 mean P.1 mmHg LV V1 mean: 81.3 cm/sec LV V1 VTI: 26.2 cm TR max roberto: 289.5 cm/sec TR max P.5 mmHg Interpretation Summary Normal LV size. Left ventricular systolic function is normal. The estimated ejection fraction is 55 %. Transmitral doppler flow suggestive of impaired relaxation of left ventricle Transmitral diastolic flow velocities suggest mild (stage 1) diastolic dysfunction (reversed pattern). Compared to the previous the LV function has improved. Ordering Physician: Micky Mauro Referring Physician: Micky Mauro Performed By: Nicholas Ashton RCS 12/02/17 1515 Date Micky Mauro MD CC: Micky Mauro MD; Linus PinaLexa Date Dictated: 11/27/17 1351 Date Transcribed: 12/02/17 1516 Cloth Designer: Signed HH, HEMOGLOBIN AND Collected: 11/29/2017 Status: F Source: [place] HEMATOCRIT 9:[address] [facility] REPOSITORY TYPE CODE TESTS RESULT OUT OF RANGE REFERENCE UNITS LAB L100.1300 13.0-16.5 g/dl Low HGB 8.8 LAB L100.1400 40-54 % Low HCT 28.3 Performed By: #### L100.0600 #### [facility] [address] [place], [address] RENAL PROFILE Collected: 11/29/2017 Status: F Source: [place] 9:[address] [facility] REPOSITORY TYPE CODE TESTS RESULT OUT OF RANGE REFERENCE UNITS LAB L501.0100 74-106 mg/dL Normal GLU 82 Result Comment: Please note revised GLUCOSE reference range effective 2017. LAB L501.1000 7-18 mg/dL High BUN 39 LAB L501.1100 0.70-1.30 mg/dL High CREAT,SERUM 1.77 Result Comment: The validity of the calculated GFR AND GFRAA in patients over 70 years has not been determined. Clinical correlation is essential. LAB L501.1110 >60 mL/min Low EST GFR 40 Result Comment: Non- GFR Calc LAB L501.1115 >60 mL/min Low EST GFR - AA 49 Result Comment: GFR Calc LAB L501.1255 ml/min Normal Estimated CRCL 35.96 LAB L501.1300 10-20 RATIO High BUN/CRE 22.0 LAB L501.1800 3.2-5. g/dL Low 0 ALB 3.1 LAB L501.2200 8.5-10 mg/dL Normal .1 CA 8.5 LAB L501.2300 2.5-4. mg/dL Normal 9 PHOS 4.5 LAB L501.5300 136-14 mmol/L Normal 5 NA 140 LAB L501.5600 3.5-5. mmol/L Normal 1 K 4.3 LAB L501.5900 98-107 mmol/L Normal CL 106 LAB L501.6100 21.0-3 mmol/L Normal 2.0 CO2 28.0 Performed By: #### L500.3600, L503.6030, L503.6550 #### [facility] [address] [place], [place], [address] IRON+IRON BINDING Collected: 11/29/2017 Status: F Source: [facility] 9:[address] [facility] REPOSITORY TYPE CODE TESTS RESULT OUT OF RANGE REFERENCE UNITS LAB L503.6075 250-450 ug/dL Low TIBC 235 LAB L503.6150 65-175 ug/dL IRON Normal 124 LAB L503.6250 15.0-55.0 % IRON Normal SATURATION 52.8 Performed By: #### L500.3600, L503.6030, L503.6550 #### [facility] [address] [place], [place], [address] FERRITIN Collected: 11/29/2017 Status: F Source: [place] 9:[address] [facility] REPOSITORY TYPE CODE TESTS RESULT OUT OF RANGE REFERENCE UNITS LAB L503.6550 26-388 ng/mL Normal FERRITIN 184 Performed By: #### L500.3600, L503.6030, L503.6550 #### [facility] [address] [place], [address] Observed: 11/28/2017 Status: F Source: [facility] CULTURE -E 11:43 AM [facility] REPOSITORY SOURCE: WOUND: Lumbar COMMENT: eSwab transport medium sent MICROSCOPIC: See Routine Culture RESULT: NO ANAEROBIC GROWTH REPORT STATUS: 12/04/2017 FINAL Performed By: #### JESS #### [address] [address] Blood Cultures processed at: [facility] BACT CULTURE/DIR Observed: Status: F Source: [place] SMEAR,LESION,TISSUE,DEVICE-UHE 11/28/2017 11:41 [facility] REPOSITORY SOURCE: WOUND: Lumbar COMMENT: eSwab transport medium sent MICROSCOPIC: Neutrophils, None Red Blood Cells Present GRAM NEGATIVE BACILLI QUANTITATION: Total Microbial Growth, Moderate RESULT: PSEUDOMONAS AERUGINOSA :Identification by MALDI-TOF mass spectrometer. ---> RVW (NOTE) Identification was performed on the MALDI-TOF mass spectrometer Seeryper. This test was developed and its performance characteristics determined by The [facility] at [facility]. It has not been cleared or approved by the FDA. The laboratory is regulated under CLIA as qualified to perform high- complexity testing. This test is used for clinical purposes. It should not be regarded as investigational or for research REPORT STATUS: 12/02/2017 FINAL ORGANISM: PSEUDOMONAS AERUGINOSA SUSCEPTIBILITY PSEUDOMONAS AERUGINOSA :Identification by MALDI-TOF mass spectrometer. ANTIBIOTIC INTERPRETATION PADMINI STATUS AMIKACIN SS 4 F CEFEPIME SS 2 F CIPROFLOXACIN SS <=0.25 F GENTAMICIN SS 4 F MEROPENEM SS 2 F PIPERACILLIN/MONISHA. SS 16 F TOBRAMYCIN SS <=1 F Performed By: #### GEN #### [address] [address] Blood Cultures processed at: [facility] Observed: 11/27/2017 Status: F Source: [place] CULTURE, DEEP WOUND 1:[address] [facility] REPOSITORY Comments: LUMBAR ULCER. Gram Stain Gram Stain Very Rare White Blood Cells 2+ Red Blood Cells Very Rare Gram positive cocci Very Rare Gram negative rods Wound Culture ORGANISM 1: Pseudomonas aeroginosa Amount Growth 1+ Pseudomonas aeroginosa: REACTION Cefepime $ 2 S Ceftazidime *NF 4 S Ciprofloxacin $ <=0.25 S Gentamicin $ 2 S Imipenem *NF 2 S Levofloxacin $ 1 S Tobramycin $ <=1 S (NF) indicates non-formulary drug at [facility]. Approval by Infectious Disease Specialist required before non-formulary drugs may be ordered and/or dispensed. Cult, Anaerobic No growth in 5 days. Performed By: #### M100.1500 #### [facility] [address] [place], [address] CARDIOLOGY VISIT Observed: 11/21/2017 Status: F Source: [place] REPORT 4:[address] [facility] REPOSITORY [facility] [address] [place], [place] [address] OFFICE VISIT Date of Service: 11/19/17 MR#: [id number] Acct: [id number] Name: CUONG MARSHALL Rep #: [id number] : 1945 Provider: Micky Mauro MD Age/Sex: 72/M Location: [facility] Status: Signed HPI HPI Details: CUONG MARSHALL, is a 72 M who presents to the office today for Intake Vital Signs11/19/17 Height 5 ft 8 in 11/19/17 Weight: 171 lb 11/19/17 Body Mass Index (BMI) 25.9 11/19/17 Blood Pressure 112/67 11/19/17 Blood Pressure Location Lt brachial Intake Visit Reasons: 3 M FU Allergies chlorthalidone Allergy (Verified 08/27/17 10:46) Unknown ramipril [From Altace] Allergy (Verified 08/27/17 10:46) Unknown sulfamethoxazole [From Bactrim] Allergy (Verified 08/27/17 10:46) Other trazodone Allergy (Verified 08/27/17 10:46) Unknown trimethoprim [From Bactrim] Allergy (Verified 08/27/17 10:46) Other prednisone Adverse Reaction (Verified 08/27/17 10:46) Swelling Medications Folic Acid 1 mg PO DAILY@0800 02/05/16 [History Confirmed 11/19/17] Magnesium Oxide [Magnesium] 400 mg PO DAILY@0800 02/05/16 [History Confirmed 11/19/17] Cholecalciferol (Vitamin D3) [Vitamin D3] 1,000 unit PO DAILY@0800 10/14/16 [History Confirmed 11/19/17] Gabapentin [Neurontin] 100 mg PO TIDCM 07/04/17 [History Confirmed 11/19/17] Vit C/E/Zn/Coppr/Lutein/Zeaxan [Preservision Areds 2 Softgel] 2 ea PO QHS 07/04/17 [History Confirmed 11/19/17] Acetaminophen [Tylenol] 1,000 mg PO Q8H PRN tab 07/12/17 [Rx Confirmed 11/19/17] Melatonin 3 mg PO QHS #30 tab 07/12/17 [Rx Confirmed 11/19/17] Oxycodone HCl 30 mg PO Q4H PRN PRN 07/23/17 [History Confirmed 11/19/17] B-complex with vitamin C tablet 1 tab PO QDAY 08/27/17 [History Confirmed 11/19/17] apixaban 5 mg tablet 2.5 mg PO BID tab 08/27/17 [History Confirmed 11/19/17] ferrous fumarate 325 mg (106 mg iron) tablet 325 mg PO BID tab 08/27/17 [History Confirmed 11/19/17] furosemide 40 mg tablet 40 mg PO QDAY #90 tab 08/27/17 [Rx Confirmed 11/19/17] atorvastatin 20 mg tablet 20 mg PO QHS #90 tab 09/04/17 [Rx Confirmed 11/19/17] metoprolol succinate ER 25 mg tablet,extended release 24 hr 12.5 mg PO DAILY #90 tab 09/04/17 [Rx Confirmed 11/19/17] PFSH Medical History Secondary pulmonary arterial hypertension (Chronic) Chronic combined systolic and diastolic CHF (congestive heart failure) (Chronic) Ascending aorta dilatation (Chronic) Aortic root dilatation (Chronic) PSVT (paroxysmal supraventricular tachycardia) (Chronic) Cardiomyopathy, dilated (Chronic) Paroxysmal atrial fibrillation (Chronic) Pleural effusion (Chronic) Pericardial effusion (Chronic) Pulmonary embolism (Chronic) Chronic kidney disease (Chronic) Non-Hodgkin lymphoma (Chronic) Hyperlipidemia (Chronic) Hypertension (Chronic) Peripheral vascular disease (Chronic) Ascites (Acute) Edema of lower extremity (Acute) Gout (Acute) Hepatic cirrhosis (Acute) Late effect of radiation (Acute) Open wound of lower back (Acute) Chronic ulcer of right leg with fat layer exposed (Chronic) History of DVT (deep vein thrombosis) (Chronic) History of diverticulitis (Chronic) Lumbar disc disease (Chronic) Lymphedema (Chronic) 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) MARY JANE (obstructive sleep apnea) (Chronic) Osteomyelitis (Chronic) Surgical History History of laminectomy (Chronic) History of splenectomy (Chronic) Family History Father Diabetes Heart disease Mother Heart disease Social History Smoking Status: Former smoker alcohol intake: current ROS Const Const: Negative for fatigue, weakness, night sweats, excessive sweating, frequent falls, headache(s) or daytime sleepiness Eyes Eyes: Negative for loss of peripheral vision, transient loss of vision, blind spots, double vision or blurry vision ENT ENT: Negative for headache(s), dizziness, balance problems, Nosebleed/epistaxis, tongue swelling or lip swelling Cardio Chest Pain: No Palpitations: No Edema: None Muscle aches with walking: None Resp Respiratory: Negative for SOB at rest, SOB orthopnea\SOB lying down, Cough, paroxysmal nocturnal dyspnea or SOB with activity GI GI: Negative nausea, vomiting, heartburn, black,tarry stools or bright, red blood in stools : Negative for hematuria Musc Musc: Negative for balance problems, muscle aches/ myalgia, muscle weakness or joint pain Skin Skin: Negative non-healing lesions, unusual bruising or rash Neuro Neuro: Negative for weakness, frequent falls, headache(s), double vision, dizziness, lightheadedness, orthostatic symptoms, blurry vision or lack of coordination Vikas Hematologic/Lymphatic: Negative for easy bruising or easy bleeding Endo Endo: Negative for fatigue, excessive sweating, cold intolerance, heat intolerance, increased thirst/drinking or hair loss Psych Psych: Negative for anxiety or depression Allergy Allergy/Immunology: Negative for throat swelling, Negative for tongue swelling, Negative for hives, Negative for rash, Negative for lip swelling Assessment AND Plan Orders Orders: Plan Detail Follow Up 4 Months (tailing hand) Coding Level of Care Code Off vis,est,level 3 Coding Level of Care Code Off vis,est,level 3 11/21/17 1611 <Electronically signed by Micky Mauro MD> Date Micky Mauro MD Cosigner Signature: Date (if applicable) CC: Linus Lindquist DO CARDIOLOGY VISIT Observed: 11/19/2017 Status: F Source: [place] REPORT 4:[address] [facility] REPOSITORY [facility] [address] [place] [address] OFFICE VISIT Date of Service: 11/19/17 MR#: [id number] Acct: [id number] Name: CUONG MARSHALL Rep #: [id number] : 1945 Provider: Micky Mauro MD Age/Sex: 72/M Location: [facility] [place] Status: Signed HPI HPI Chief Complaint: Follow up Details: CUONG MARSHALL, is a 72 M who presents to the office today for follow-up of his visits. He is a gentleman with a complicated cardiac history with a cardiac component being paroxysmal atrial fibrillation, history of congestive heart failure, hypertension, hyperlipidemia, and pulmonary emboli. As you know he does have a history of non- Hodgkin's lymphoma with bony metastases, and status post chemotherapy and radiation therapy to L4-L5. He had undergone laminectomy and repeated surgeries for nonhealing wounds. At this particular time he has a wound pump for chronic osteomyelitis. He does have a history of mild left ventricular systolic dysfunction with an estimated ejection fraction of approximately 40%. He is denied any chest pain or shortness of breath or paroxysmal nocturnal dyspnea pedal edema he does get short of breath with exertion but he has had no neck arm or jaw discomfort suggest angina. His physical exam today demonstrates clear lung white regular rate and rhythm no pedal edema no carotid bruits. Intake Vital Signs11/19/17 Height 5 ft 8 in 11/19/17 Weight: 171 lb 11/19/17 Body Mass Index (BMI) 25.9 11/19/17 Blood Pressure 112/67 11/19/17 Blood Pressure Location Lt brachial Intake Visit Reasons: 3 M FU Union Organizer Required: No Is patient in pain?: No Allergies chlorthalidone Allergy (Verified 08/27/17 10:46) Unknown ramipril [From Altace] Allergy (Verified 08/27/17 10:46) Unknown sulfamethoxazole [From Bactrim] Allergy (Verified 08/27/17 10:46) Other trazodone Allergy (Verified 08/27/17 10:46) Unknown trimethoprim [From Bactrim] Allergy (Verified 08/27/17 10:46) Other prednisone Adverse Reaction (Verified 08/27/17 10:46) Swelling Medications Folic Acid 1 mg PO DAILY@0800 02/05/16 [History Confirmed 11/19/17] Magnesium Oxide [Magnesium] 400 mg PO DAILY@0800 02/05/16 [History Confirmed 11/19/17] Cholecalciferol (Vitamin D3) [Vitamin D3] 1,000 unit PO DAILY@0800 10/14/16 [History Confirmed 11/19/17] Gabapentin [Neurontin] 100 mg PO TIDCM 07/04/17 [History Confirmed 11/19/17] Vit C/E/Zn/Coppr/Lutein/Zeaxan [Preservision Areds 2 Softgel] 2 ea PO QHS 07/04/17 [History Confirmed 11/19/17] Acetaminophen [Tylenol] 1,000 mg PO Q8H PRN tab 07/12/17 [Rx Confirmed 11/19/17] Melatonin 3 mg PO QHS #30 tab 07/12/17 [Rx Confirmed 11/19/17] Oxycodone HCl 30 mg PO Q4H PRN PRN 07/23/17 [History Confirmed 11/19/17] B-complex with vitamin C tablet 1 tab PO QDAY 08/27/17 [History Confirmed 11/19/17] apixaban 5 mg tablet 2.5 mg PO BID tab 08/27/17 [History Confirmed 11/19/17] ferrous fumarate 325 mg (106 mg iron) tablet 325 mg PO BID tab 08/27/17 [History Confirmed 11/19/17] furosemide 40 mg tablet 40 mg PO QDAY #90 tab 08/27/17 [Rx Confirmed 11/19/17] atorvastatin 20 mg tablet 20 mg PO QHS #90 tab 09/04/17 [Rx Confirmed 11/19/17] metoprolol succinate ER 25 mg tablet,extended release 24 hr 12.5 mg PO DAILY #90 tab 09/04/17 [Rx Confirmed 11/19/17] Ejection fraction %: 20 to 24 PFSH Medical History Secondary pulmonary arterial hypertension (Chronic) Chronic combined systolic and diastolic CHF (congestive heart failure) (Chronic) Ascending aorta dilatation (Chronic) Aortic root dilatation (Chronic) PSVT (paroxysmal supraventricular tachycardia) (Chronic) Cardiomyopathy, dilated (Chronic) Paroxysmal atrial fibrillation (Chronic) Pleural effusion (Chronic) Pericardial effusion (Chronic) Pulmonary embolism (Chronic) Chronic kidney disease (Chronic) Non-Hodgkin lymphoma (Chronic) Hyperlipidemia (Chronic) Hypertension (Chronic) Peripheral vascular disease (Chronic) Ascites (Acute) Edema of lower extremity (Acute) Gout (Acute) Hepatic cirrhosis (Acute) Late effect of radiation (Acute) Open wound of lower back (Acute) Chronic ulcer of right leg with fat layer exposed (Chronic) History of DVT (deep vein thrombosis) (Chronic) History of diverticulitis (Chronic) Lumbar disc disease (Chronic) Lymphedema (Chronic) 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) MARY JANE (obstructive sleep apnea) (Chronic) Osteomyelitis (Chronic) Surgical History History of laminectomy (Chronic) History of splenectomy (Chronic) Family History Father Diabetes Heart disease Mother Heart disease Social History Smoking Status: Former smoker alcohol intake: current ROS Const Const: Negative for fatigue, weakness, night sweats, excessive sweating, frequent falls, headache(s) or daytime sleepiness Eyes Eyes: Negative for loss of peripheral vision, transient loss of vision, blind spots, double vision or blurry vision ENT ENT: Negative for headache(s), dizziness, balance problems, Nosebleed/epistaxis, tongue swelling or lip swelling Cardio Chest Pain: No Palpitations: No Edema: None Muscle aches with walking: None Resp Respiratory: Negative for SOB at rest, SOB orthopnea\SOB lying down, Cough, paroxysmal nocturnal dyspnea or SOB with activity GI GI: Negative nausea, vomiting, heartburn, black,tarry stools or bright, red blood in stools : Negative for hematuria Musc Musc: Negative for balance problems, muscle aches/ myalgia, muscle weakness or joint pain Skin Skin: Negative non-healing lesions, unusual bruising or rash Neuro Neuro: Negative for weakness, frequent falls, headache(s), double vision, dizziness, lightheadedness, orthostatic symptoms, blurry vision or lack of coordination Vikas Hematologic/Lymphatic: Negative for easy bruising or easy bleeding Endo Endo: Negative for fatigue, excessive sweating, cold intolerance, heat intolerance, increased thirst/drinking or hair loss Psych Psych: Negative for anxiety or depression Allergy Allergy/Immunology: Negative for throat swelling, Negative for tongue swelling, Negative for hives, Negative for rash, Negative for lip swelling Cardiology Exam Const Appearance: cooperative, healthy appearing, well developed, well groomed and no acute distress Nutritional Appearance: well nourished and average body habitus Orientation: alert, awake and oriented x3 Head Head: normal to inspection, normocephalic and atraumatic Ears: hearing grossly normal bilaterally and external ears normal Nose: external nose normal, nasal mucous membranes and turbinates normal, nares normal, septum normal, no nasal discharge Face and Sinus: face symmetric Mouth: oral mucosae normal, tongue normal, oropharynx normal and moist mucous membranes Teeth and gingiva: dentition normal Throat: posterior oropharynx normal, tonsils normal and uvula midline Eyes General: appearance normal, both eyes and all related structures Eyelids: eyelids normal Conjunctivae: conjunctivae normal Pupils: PERRL, normal by confrontation and accommodation normal EOM: EOM intact bilaterally Neck Neck: normal visual inspection, trachea midline and no JVD JVD: +5 Carotids: normal carotid upstroke and bounding pulses Chest Chest inspection: normal inspection of the chest, symmetric chest movement and normal respiratory effort Auscultation: Bilateral: Clear to Auscultation Cardio Palpation: normal PMI Rate: regular rate Rhythm: regular rhythm Heart sounds: S1 normal, S2 normal and normal, physiologic split S2; negative rub, gallop or murmur GI GI: normal to inspection, soft, no hepatosplenomegaly and bowel sounds present Neuro General: alert, awake, oriented x3, no focal sensory deficit, gait normal and moves all extremities Skin Skin: no rashes or lesions noted Extremities Pulses: Normal: Right Femoral Pulse, Left Femoral Pulse, Right Dorsalis Pedis Pulse, Left Dorsalis Pedis Pulse, Right Posterior Tibial Pulse, Left Posterior Tibial Pulse, Right Radial Pulse, Left Radial Pulse Lower Extremity Edema: None: Bilateral Musculoskel Musculoskeletal: No joint tenderness Psych Psychological: normal affect Assessment AND Plan 1. Paroxysmal atrial fibrillation I48.0 Plan He appears to be maintaining sinus rhythm on his current regimen and I would not recommend that we make any changes he remains anticoagulated with apixaban and is rate controlled with the beta-cyndi. 2. Cardiomyopathy, dilated I42.0 Plan He does have mild to moderate cardiomyopathy and he remains on the beta-cyndi. He has not been placed on an TEETEE inhibitor at this time. At this time I recommend that we obtain an echocardiogram to reassess his left ventricular function. In addition you do remember that he did have some renal insufficiency and I was hesitant to place him on an TEETEE or an ARB. 3. Essential hypertension I10 Plan His blood pressure appears to be under good control on the current medical therapy and I would not recommend that we make any changes. 4. Pure hypercholesterolemia E78.00 Plan He continues to be on the medium intensity statin which will be continued. He has not had any recent lipid profile is obtained. Thank you for allowing me to participate in the care of your patient. Please don't hesitate to call if any issues arise Plan Detail Other Orders Orders: Follow Up 4 Months (tailing hand) Coding Level of Care Code Off vis,est,level 4 Diagnoses Paroxysmal atrial fibrillation I48.0 Cardiomyopathy, dilated I42.0 Essential hypertension I10 Hypertension type: essential hypertension Pure hypercholesterolemia E78.00 Hyperlipidemia type: pure hypercholesterolemia Coding Level of Care Code Off vis,est,level 4 Diagnoses Paroxysmal atrial fibrillation I48.0 Cardiomyopathy, dilated I42.0 Essential hypertension I10 Hypertension type: essential hypertension Pure hypercholesterolemia E78.00 Hyperlipidemia type: pure hypercholesterolemia 11/19/17 1633 <Electronically signed by Micky Mauro MD> Date Micky Mauro MD Cosigner Signature: Date (if applicable) CC: Linus PinaLexa Observed: 11/15/2017 Status: F Source: [place] CULTURE, DEEP WOUND 2:[address] [facility] REPOSITORY Comments: LUMBAR ULCER Gram Stain Gram Stain 1+ White Blood Cells 1+ Red Blood Cells No organisms seen Wound Culture ORGANISM 1: Pseudomonas aeroginosa Amount Growth 1+ ORGANISM 2: Pseudomonas aeroginosa Amount Growth 1+ Pseudomonas aeroginosa: REACTION Cefepime $ 2 S Ceftazidime *NF 4 S Ciprofloxacin $ <=0.25 S Gentamicin $ <=1 S Imipenem *NF 2 S Levofloxacin $ 0.5 S Piperacillin/Tazobactam $$ 16 S Tobramycin $ <=1 S (NF) indicates non-formulary drug at [facility]. Approval by Infectious Disease Specialist required before non-formulary drugs may be ordered and/or dispensed. Pseudomonas aeroginosa: REACTION Cefepime $ 8 S Ceftazidime *NF 2 S Ciprofloxacin $ 2 I Gentamicin $ <=1 S Imipenem *NF <=0.25 S Levofloxacin $ >=8 R Tobramycin $ <=1 S (NF) indicates non-formulary drug at [facility]. Approval by Infectious Disease Specialist required before non-formulary drugs may be ordered and/or dispensed. Cult, Anaerobic No anaerobic bacteria isolated. Performed By: #### M100.1500 #### [facility] [address] [place], [address] HH, HEMOGLOBIN AND Collected: 11/15/2017 Status: F Source: [place] HEMATOCRIT 10:21 AM [facility] HOSPITAL REPOSITORY TYPE CODE TESTS RESULT OUT OF RANGE REFERENCE UNITS LAB L100.1300 13.0-16.5 g/dl Low HGB 9.5 LAB L100.1400 40-54 % Low HCT 29.4 Performed By: #### L100.0600 #### [facility] [place], [address] Observed: 11/01/2017 Status: F Source: [place] CULTURE, DEEP WOUND 2:10 PM [facility] REPOSITORY Comments: LUMBAR SPINE Gram Stain Gram Stain 2+ White Blood Cells 3+ Red Blood Cells Rare Gram positive cocci Rare Gram negative rods Wound Culture RESULTS CALLED TO SARA 11/04/17 0839 Jazz Schwarz. REPORT READ BACK BY SAME. Copy of report sent to Infection Control Printer [id number] 11/04/17 7842 EMILY. ORGANISM 1: Pseudomonas aeroginosa Amount Growth 1+ ORGANISM 2: Meth. resistant Staph. aureus Amount Growth Rare Pseudomonas aeroginosa: REACTION Cefepime $ 8 S Ceftazidime *NF <=1 S Ciprofloxacin $ 2 I Gentamicin $ <=1 S Imipenem *NF <=0.25 S Levofloxacin $ 4 I Piperacillin/Tazobactam $$ <=4 S Tobramycin $ <=1 S (NF) indicates non-formulary drug at [facility]. Approval by Infectious Disease Specialist required before non-formulary drugs may be ordered and/or dispensed. Meth. resistant Staph. aureus: REACTION Benzylpenicillin NF >=0.5 R Cefoxitin *NF + Clindamycin $$ >=8 R Inducable Clindamycin Resistan - Erythromycin $ >=8 R Gentamicin $ <=0.5 S Levofloxacin $ >=8 R Linezolid $$$$ 2 S Oxacillin NF >=4 R Tigecycline $$$$ <=0.12 S Rifampin $$ <=0.5 S Tetracycline NF >=16 R Trimethoprim/Sulfametho $ <=10 S Vancomycin $ 1 S (NF) indicates non-formulary drug at [facility]. Approval by Infectious Disease Specialist required before non-formulary drugs may be ordered and/or dispensed. * CLSI guidelines does not recommend testing of cephalosporins. This interpretation is deduced from Beta-lactam/penicillin results. Cult, Anaerobic No anaerobic bacteria isolated. Performed By: #### M100.1500 #### [facility] [address] [place], [place], [id number] CBC W/DIFF, AUTOMATED Collected: 11/01/2017 Status: F Source: [place] 9:[address] [facility] REPOSITORY TYPE CODE TESTS RESULT OUT OF RANGE REFERENCE UNITS LAB L100.1000 4.4-11.0 K/mm3 Normal WBC 6.2 LAB L100.1200 4.6-6.2 M/mm3 Low RBC 3.08 LAB L100.1300 13.0-16.5 g/dl Low HGB 10.3 LAB L100.1400 40-54 % Low HCT 31.1 LAB L100.1500 80-94 fL High MCV 101.0 LAB L100.1600 27.0-32.0 pg High MCH 33.4 LAB L100.1700 32-36 g/gl Normal MCHC 33.1 LAB L100.1810 11.6-14.6 % High RDW CV 14.7 LAB L100.1820 35.1-43.9 fl High RDW SD 51.5 LAB L100.1900 150-450 K/mm3 Normal PLT 195 LAB L100.2000 6.2-12.0 fl Normal MPV 9.8 LAB L100.2100 47-70 % Normal NEUT% 57.7 LAB L100.2200 19-41 % Normal LY% 24.6 LAB L100.2300 0-10 % High MONO% 11.1 LAB L100.2400 0-5 % High EO% 5.6 LAB L100.2500 0-1 % Normal BASO% 0.8 LAB L100.2550 0.0-0.9 % Normal IM GRAN % 0.200 Result Comment: IG% - Immature Granulocytes (promyelocytes, myelocytes and metamyelocytes) > 1% indicates that a LEFT SHIFT is Present. LAB L100.2620 2.0-7.7 X10 3/uL Normal Absolute Neut 3.6 LAB L100.2720 0.83-4.51 X10 3/ul Normal Absolute Lymph 1.53 Performed By: #### L100.0100 #### [facility] [address] [place], [place], [address] RENAL PROFILE Collected: 11/01/2017 Status: F Source: [place] 9:[address] [facility] REPOSITORY TYPE CODE TESTS RESULT OUT OF RANGE REFERENCE UNITS LAB L501.0100 74-106 mg/dL Normal GLU 79 Result Comment: Please note revised GLUCOSE reference range effective 2017. LAB L501.1000 7-18 mg/dL High BUN 59 LAB L501.1100 0.70-1.30 mg/dL High CREAT,SERUM 1.78 Result Comment: The validity of the calculated GFR AND GFRAA in patients over 70 years has not been determined. Clinical correlation is essential. LAB L501.1110 >60 mL/min Low EST GFR 40 Result Comment: Non- GFR Calc LAB L501.1115 >60 mL/min Low EST GFR - AA 48 Result Comment: GFR Calc LAB L501.1300 10-20 RATIO High BUN/CRE 33.1 LAB L501.1800 3.2-5.0 g/dL Normal ALB 3.2 LAB L501.2200 8.5-10.1 mg/dL CA Normal 9.3 LAB L501.2300 2.5-4.9 mg/dL Normal PHOS 4.0 LAB L501.5300 136-145 mmol/L NA Normal 136 LAB L501.5600 3.5-5.1 mmol/L K Normal 3.8 LAB L501.5900 98-107 mmol/L CL Normal 101 LAB L501.6100 21.0-32.0 mmol/L Normal CO2 25.0 Performed By: #### L500.3600 #### [facility] [address] [facility] [place], [address] WOUND CTR HISTORY Observed: 10/28/2017 Status: F Source: [place] AND PHYSICAL 12:[address] [facility] REPOSITORY [facility] [address] [place] [address] Wound Ctr History AND Physical 10/28/17 1233 MR#: [id number] Acct: [id number] Name: CUONG MARSHALL Rep #: [id number] : 1945 72 From: Memo Nguyễn MD PCP: Linus Lindquist DO Status: REG RCR Y Location: WC (1) History of non-Hodgkin's lymphoma Status: Chronic Current Visit: No Code(s): Z85.72 - Personal history of non-Hodgkin lymphomas (2) Chronic kidney disease Status: Chronic Current Visit: No Qualifiers: Chronic kidney disease stage: stage 3 (moderate) Qualified Code(s): N18.3 - Chronic kidney disease, stage 3 (moderate) Code(s): N18.9 - Chronic kidney disease, unspecified (3) Nonhealing surgical wound Status: Chronic Current Visit: Yes Qualifiers: Encounter type: initial encounter Qualified Code(s): T81.89XA - Other complications of procedures, not elsewhere classified, initial encounter Code(s): T81.89XA - Other complications of procedures, not elsewhere classified, initial encounter (4) Open wound of lower back Status: Chronic Current Visit: Yes Code(s): S31.000A - Unspecified open wound of lower back and pelvis without penetration into retroperitoneum, initial encounter (5) Ascending aorta dilatation Status: Chronic Current Visit: No Code(s): I77.810 - Thoracic aortic ectasia (6) Paroxysmal atrial fibrillation Status: Chronic Current Visit: No Code(s): I48.0 - Paroxysmal atrial fibrillation (7) Pulmonary hypertension Status: Chronic Current Visit: No Code(s): I27.20 - Pulmonary hypertension, unspecified History of Present Illness Date of Service: 10/28/17 Chief Complaint: Nonhealing surgical wound of lower back History of Wound: Mr. Marshall is a 72-yo who has been seen here at the wound center for a nonhealing surgical wound of his lower back s/p surgical debridement for an abscess s/p lumbar spine surgery. His original surgery on his lower back was approximately 18 months ago and he has had multiple complications since that time. He underwent surgical debridement on 03/04/[address] Davila at [facility] in [place] and was discharged with a wound vac for healing by secondary intention with possible muscle flap closure in the future. He followed up with his surgeon on 04/18/17 for further evaluation and recommendations and they plan to close the wound with a muscle flap but he continues to develop infections. He is also being seen by Infectious Disease. On today's date, October 28, 2017, I was asked to see the patient at the wound center where he had presented as a nurse visit for a change of his wound VAC. The wound VAC is the current modality used to treat a large open surgical wound in the lumbar area. Upon changing the dressing, a small bleeding site was encountered at the lower pole of the open wound, and had not responded to manual pressure which had been applied. I was asked to see the patient for control of a small amount of bleeding at the site, which did not appear to be responding to manual pressure. Initial intervention involved the use of silver nitrate sticks, which did not appear to be effective in controlling the small amount of bleeding from the very localized site in the inferior portion of the wound. Therefore, Surgifoam applied topically, and held in place manually for several minutes. At this juncture, the bleeding appeared to be eliminated, and the site remained dry. The nursing staff was instructed to observe the area for at least several more minutes, after which reapplication of the wound VAC, with the Surgifoam remaining in place, was recommended. 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 Wound debridement 03/04/2017, 05/14/2017 at [facility]> Allergies/Adverse Reactions: Allergies chlorthalidone Allergy (Verified 08/27/17 10:46) Unknown ramipril [From Altace] Allergy (Verified 08/27/17 10:46) Unknown sulfamethoxazole [From Bactrim] Allergy (Verified 08/27/17 10:46) Other trazodone Allergy (Verified 08/27/17 10:46) Unknown trimethoprim [From Bactrim] Allergy (Verified 08/27/17 10:46) Other prednisone Adverse Reaction (Verified 08/27/17 10:46) Swelling Home Medications: Ambulatory Orders Medication Instructions Recorded Folic Acid 1 mg PO DAILY@0800 02/05/16 - Family History Maternal Family History: Family History (Last Reviewed 08/27/17 @ 10:52 by Marzena Jackson) Father Diabetes Heart disease Mother Heart disease Heart Disease Paternal Family History: Family History (Last Reviewed 08/27/17 @ 10:52 by Marzena Jackson) Father Diabetes Heart disease Mother Heart disease Diabetes Smoking Status: Former smoker Tobacco Use: Non-smoker Review of Systems Constitutional: Denies: Chills, Fever, Weight Change Eyes: Denies: Pain, Vision Change HEENT: Denies: Difficulty Hearing, Difficulty Swallowing, Sinus Congestion Cardiovascular: Denies: Chest Pain, Palpitations Respiratory: Denies: Cough, Shortness of Breath Gastrointestinal: Denies: Diarrhea, Nausea, Vomiting Genitourinary: Denies: Dysuria, Hematuria Endocrine: Denies: Heat/ Cold Intolerance, Polydipsia, Polyuria Hematologic/ Lymphatic: Denies: Easy Bruising, Easy Bleeding - Physical Exam Vital Signs Temp Pulse Resp BP 97.4 F L 61 20 H 127/64 H 10/25/17 12:34 10/25/17 12:34 10/25/17 12:34 10/25/17 12:34 General: Alert, Oriented x3, Cooperative, No apparent distress, Well developed, Well nourished HEENT: Atraumatic, PERRLA, EOMI, Normocephalic Oral: Moist Mucosa Neck: No JVD Lungs: Normal air movement Abdomen: Non-Distended Extremities: No clubbing, No cyanosis, No edema Skin: No rashes, - - A large open surgical wound is noted in the lumbar area. The wound appears generally pink and healthy in appearance. There is no sign of infection or cellulitis. Within the base of the wound, near the inferior pole, is a very small area of bleeding, which appeared to respond to the topical application of Surgifoam. Wound Measurements and Assessment WC - Nurse 1 - General Ulcer Measurement Start: 10/18/17 12:38 Freq: Status: Active Protocol: Activity Type Activity Date Activity User E-Sign Co-Sign Detail Recorded Client Recorded Date Recorded By Document 10/25/17 12:34 IVANA [id number] 10/25/17 12:46 [facility] Wound Center Nurse 1 [Ulcer Assessment] #9 Lower Lumbar- Midline -Current Size (cm) - Length 13.8 WC - Nurse 2 - General Ulcer CM Notes Start: 10/18/17 12:38 Freq: Status: Active Protocol: Activity Type Activity Date Activity User E-Sign Co-Sign Detail Recorded Client Recorded Date Recorded By Document 10/25/17 13:17 SELENA [id number] 10/25/17 13:46 JS Wound Center Nurse 2 Musculoskeletal: No Muscle Wasting Neurological: Cranial nerves II-XII grossly intact, Neuro grossly intact Psych/Mental Status: Normal Affect, Appropriate, Alert and oriented to time, place, person, mood and affect Debridement Note Post-Debridement Measurements/Treatment WC - Nurse 2 - General Ulcer CM Notes Start: 10/18/17 12:38 Freq: Status: Active Protocol: Activity Type Activity Date Activity User E-Sign Co-Sign Detail Wound Center Nurse 2 #9 Lower Lumbar- Midline -Time 13:30 13:17 -Correct Patient Yes Yes No debridement was completed today Assessment/Plan Active Problems (Last Reviewed 08/27/17 @ 10:52 by Marzena Jackson) Nonhealing surgical wound (Chronic) Open wound of lower back (Chronic) Cellulitis (Acute) Assessment: chronic surgical wound dehiscence lumbar with complex abscess and recent surgical debridement. malnutrition. other multiple comorbidities. edema bilateral lower extremities. Bleeding site from within wound controlled with combination of silver nitrate and Surgifoam. Bleeding appears to be controlled. venous insufficiency. immunocompromised status. Plan: As documented above, small amount of bleeding was controlled in the wound healing center today, using a combination of silver nitrate sticks and Surgifoam applied topically. These measures appeared to be effective, and the patient was discharged following reapplication of his wound VAC. He will follow-up henceforth with his regular wound healing center physician. Continue wound VAC. Continue high protein diet. Routine implemented care will continue. This note was generated with [employer] dictation software. It may contain incorrect words, spelling, and punctuation that were not noted in checking the note before signing. 10/28/17 [id number] <Electronically signed by Memo Nguyễn MD> Date Memo Nguyễn MD CC: Signed Observed: 10/18/2017 Status: F Source: [place] CULTURE, DEEP WOUND 1:[address] [facility] Copy of report sent to Infection Control Printer [id number] 10/20/17 0859 EMILY. Comments: LUMBAR ULCER Gram Stain Gram Stain 1+ White Blood Cells 2+ Gram positive cocci 1+ Gram positive rods Wound Culture RESULTS CALLED TO WOUND CENTER NURSE LINE 10/20/17 0856 Jazz Caindora. #2 There are no CLSI standards for interpretation of this Drug/Organism combination. ORGANISM 1: Meth. resistant Staph. aureus Amount Growth 3+ ORGANISM 2: Corynebacterium striatum Amount Growth 2+ Meth. resistant Staph. aureus: REACTION Benzylpenicillin NF >=0.5 R Cefoxitin *NF + Clindamycin $$ >=8 R Inducable Clindamycin Resistan - Erythromycin $ >=8 R Gentamicin $ <=0.5 S Levofloxacin $ >=8 R Linezolid $$$$ 2 S Oxacillin NF >=4 R Tigecycline $$$$ <=0.12 S Rifampin $$ <=0.5 S Tetracycline NF >=16 R Trimethoprim/Sulfametho $ <=10 S Vancomycin $ <=0.5 S (NF) indicates non-formulary drug at [facility]. Approval by Infectious Disease Specialist required before non-formulary drugs may be ordered and/or dispensed. * CLSI guidelines does not recommend testing of cephalosporins. This interpretation is deduced from Beta-lactam/penicillin results. Cult, Anaerobic No anaerobic bacteria isolated. Performed By: #### M100.1500 #### [facility] [address] [place], [address] CBC W/DIFF, AUTOMATED Collected: 10/16/2017 Status: F Source: [place] 11:[address] [facility] TYPE CODE TESTS RESULT OUT OF RANGE REFERENCE UNITS LAB L100.1000 4.4-11.0 K/mm3 Normal WBC 6.0 LAB L100.1200 4.6-6.2 M/mm3 Low RBC 3.11 LAB L100.1300 13.0-16.5 g/dl Low HGB 10.0 LAB L100.1400 40-54 % Low HCT 30.8 LAB L100.1500 80-94 fL High MCV 99.0 LAB L100.1600 27.0-32.0 pg High MCH 32.2 LAB L100.1700 32-36 g/gl Normal MCHC 32.5 LAB L100.1810 11.6-14.6 % High RDW CV 14.7 LAB L100.1820 35.1-43.9 fl High RDW SD 52.6 LAB L100.1900 150-450 K/mm3 Normal PLT 323 LAB L100.2000 6.2-12.0 fl Normal MPV 8.8 LAB L100.2100 47-70 % Normal NEUT% 60.5 LAB L100.2200 19-41 % Normal LY% 21.5 LAB L100.2300 0-10 % High MONO% 15.3 LAB L100.2400 0-5 % Normal EO% 2.2 LAB L100.2500 0-1 % Normal BASO% 0.5 LAB L100.2550 0.0-0.9 % Normal IM GRAN % 0.000 Result Comment: IG% - Immature Granulocytes (promyelocytes, myelocytes and metamyelocytes) > 1% indicates that a LEFT SHIFT is Present. LAB L100.2620 2.0-7.7 X10 3/uL Normal Absolute Neut 3.6 LAB L100.2720 0.83-4.51 X10 3/ul Normal Absolute Lymph 1.28 Performed By: #### L100.0100 #### [facility] [place], [place], [address] Observed: 10/02/2017 Status: F Source: [place] CULTURE, DEEP WOUND 9:[address] [facility] Comments: LUMBAR ULCER. Gram Stain Gram Stain No White Blood Cells No organisms seen Wound Culture #3 There are no CLSI standards for interpretation of this Drug/Organism combination. ORGANISM 1: Staphylococcus aureus Amount Growth 2+ ORGANISM 2: Burkholderia cepacia Amount Growth 1+ ORGANISM 3: Corynebacterium striatum Amount Growth 2+ Staphylococcus aureus: REACTION Benzylpenicillin NF >=0.5 R Cefoxitin *NF - Clindamycin $$ <=0.25 S Inducable Clindamycin Resistan - Erythromycin $ <=0.25 S Gentamicin $ <=0.5 S Levofloxacin $ <=0.12 S Linezolid $$$$ 2 S Moxifloxicin *NF <=0.25 S Oxacillin NF 0.5 S Tigecycline $$$$ <=0.12 S Rifampin $$ <=0.5 S Tetracycline NF <=1 S Trimethoprim/Sulfametho $ <=10 S Vancomycin $ <=0.5 S (NF) indicates non-formulary drug at [facility]. Approval by Infectious Disease Specialist required before non-formulary drugs may be ordered and/or dispensed. * CLSI guidelines does not recommend testing of cephalosporins. This interpretation is deduced from Beta-lactam/penicillin results. Burkholderia cepacia: REACTION Aztreonam $$$ 23 S Burkholderia cepacia: REACTION Amikacin $ 8 R Aztreonam $$$ 16 I Meropenem $ 4 S (NF) indicates non-formulary drug at [facility]. Approval by Infectious Disease Specialist required before non-formulary drugs may be ordered and/or dispensed. Burkholderia cepacia: REACTION Ceftazidime *NF 16 I Ceftriaxone $ >=64 R Ciprofloxacin $ 0.5 S Gentamicin $ 2 S Imipenem *NF >=16 R Levofloxacin $ 1 S Piperacillin/Tazobactam $$ >=128 R Tobramycin $ <=1 S Trimethoprim/Sulfametho $ 80 R (NF) indicates non-formulary drug at [facility]. Approval by Infectious Disease Specialist required before non-formulary drugs may be ordered and/or dispensed. Cult, Anaerobic No anaerobic bacteria isolated. Performed By: #### M100.1500 #### [facility] [address] [place], [place], [address] HH, HEMOGLOBIN AND Collected: 10/01/2017 Status: F Source: [place] HEMATOCRIT 10:[address] [facility] TYPE CODE TESTS RESULT OUT OF RANGE REFERENCE UNITS LAB L100.1300 13.0-16.5 g/dl Low HGB 9.7 LAB L100.1400 40-54 % Low HCT 30.5 Performed By: #### L100.0600 #### [facility] [address] [place], [address] RENAL PROFILE Collected: 10/01/2017 Status: F Source: [place] 10:[address] [facility] TYPE CODE TESTS RESULT OUT OF RANGE REFERENCE UNITS LAB L501.0100 74-106 mg/dL Normal GLU 91 Result Comment: Please note revised GLUCOSE reference range effective 2017. LAB L501.1000 7-18 mg/dL High BUN 36 LAB L501.1100 0.70-1.30 mg/dL High CREAT,SERUM 1.75 Result Comment: The validity of the calculated GFR AND GFRAA in patients over 70 years has not been determined. Clinical correlation is essential. LAB L501.1110 >60 mL/min Low EST GFR 41 Result Comment: Non- GFR Calc LAB L501.1115 >60 mL/min Low EST GFR - AA 49 Result Comment: GFR Calc LAB L501.1300 10-20 RATIO High BUN/CRE 20.6 LAB L501.1800 3.2-5.0 g/dL Low ALB 3.0 LAB L501.2200 8.5-10.1 mg/dL CA Normal 8.7 LAB L501.2300 2.5-4.9 mg/dL Normal PHOS 2.8 LAB L501.5300 136-145 mmol/L NA Normal 137 LAB L501.5600 3.5-5.1 mmol/L K Normal 3.7 LAB L501.5900 98-107 mmol/L CL Normal 101 LAB L501.6100 21.0-32.0 mmol/L Normal CO2 28.0 Performed By: #### L500.3600 #### [facility] [address] [place], [place], [address] Observed: 09/18/2017 Status: F Source: [place] CULTURE, DEEP WOUND 1:[address] [facility] Comments: LOWER SPINE WOUND Gram Stain Gram Stain No White Blood Cells No organisms seen Wound Culture There are no CLSI standards for interpretation of this Drug/Organism combination. ORGANISM 1: Corynebacterium striatum Amount Growth 2+ Cult, Anaerobic No anaerobic bacteria isolated. Performed By: #### M100.1500 #### [facility] [address] [place], [place], [address] CBC W/DIFF, AUTOMATED Collected: 09/17/2017 Status: F Source: [place] 10:[address] [facility] TYPE CODE TESTS RESULT OUT OF RANGE REFERENCE UNITS LAB L100.1000 4.4-11.0 K/mm3 Normal WBC 6.2 LAB L100.1200 4.6-6.2 M/mm3 Low RBC 2.72 LAB L100.1300 13.0-16.5 g/dl Low HGB 9.0 LAB L100.1400 40-54 % Low HCT 27.9 LAB L100.1500 80-94 fL High MCV 102.6 LAB L100.1600 27.0-32.0 pg High MCH 33.1 LAB L100.1700 32-36 g/gl Normal MCHC 32.3 LAB L100.1810 11.6-14.6 % High RDW CV 15.2 LAB L100.1820 35.1-43.9 fl High RDW SD 55.2 LAB L100.1900 150-450 K/mm3 Normal PLT 345 LAB L100.2000 6.2-12.0 fl Normal MPV 9.1 LAB L100.2100 47-70 % Normal NEUT% 55.8 LAB L100.2200 19-41 % Normal LY% 20.0 LAB L100.2300 0-10 % High MONO% 18.0 LAB L100.2400 0-5 % High EO% 5.5 LAB L100.2500 0-1 % Normal BASO% 0.5 LAB L100.2550 0.0-0.9 % Normal IM GRAN % 0.200 Result Comment: IG% - Immature Granulocytes (promyelocytes, myelocytes and metamyelocytes) > 1% indicates that a LEFT SHIFT is Present. LAB L100.2620 2.0-7.7 X10 3/uL Normal Absolute Neut 3.4 LAB L100.2720 0.83-4.51 X10 3/ul Normal Absolute Lymph 1.23 Performed By: #### L100.0100 #### [facility] [address] [place], [place], [address] HH, HEMOGLOBIN AND Collected: 09/03/2017 Status: F Source: [place] HEMATOCRIT 11:[address] [facility] Order Comment: Has pt arrived? Y TYPE CODE TESTS RESULT OUT OF RANGE REFERENCE UNITS LAB L100.1300 13.0-16.5 g/dl Low HGB 8.5 LAB L100.1400 40-54 % Low HCT 26.9 Performed By: #### L100.0600, L500.3600, L503.6030, L503.6550 #### [facility] [address] [place], [place], [id number] RENAL PROFILE Collected: 09/03/2017 Status: F Source: [place] 11:[address] [facility] TYPE CODE TESTS RESULT OUT OF RANGE REFERENCE UNITS LAB L501.0100 74-106 mg/dL Normal GLU 75 Result Comment: Please note revised GLUCOSE reference range effective 2017. LAB L501.1000 7-18 mg/dL High BUN 53 LAB L501.1100 0.70-1.30 mg/dL High CREAT,SERUM 2.08 Result Comment: The validity of the calculated GFR AND GFRAA in patients over 70 years has not been determined. Clinical correlation is essential. LAB L501.1110 >60 mL/min Low EST GFR 33 Result Comment: Non- GFR Calc LAB L501.1115 >60 mL/min Low EST GFR - AA 40 Result Comment: GFR Calc LAB L501.1255 ml/min Normal Estimated CRCL 30.60 LAB L501.1300 10-20 RATIO High BUN/CRE 25.5 LAB L501.1800 3.2-5. g/dL Low 0 ALB 2.8 LAB L501.2200 8.5-10 mg/dL Normal .1 CA 9.4 LAB L501.2300 2.5-4. mg/dL Normal 9 PHOS 3.5 LAB L501.5300 136-14 mmol/L Normal 5 NA 136 LAB L501.5600 3.5-5. mmol/L Normal 1 K 4.2 LAB L501.5900 98-107 mmol/L Normal CL 101 LAB L501.6100 21.0-3 mmol/L Normal 2.0 CO2 28.0 Performed By: #### L100.0600, L500.3600, L503.6030, L503.6550 #### [facility] [address] [place], [place], [id number] IRON+IRON BINDING Collected: 09/03/2017 Status: F Source: [place] CAPACITY 11:[address] [facility] TYPE CODE TESTS RESULT OUT OF RANGE REFERENCE UNITS LAB L503.6075 250-450 ug/dL Low TIBC 232 LAB L503.6150 65-175 ug/dL Low IRON 63 LAB L503.6250 15.0-55.0 % IRON Normal SATURATION 27.2 Performed By: #### L100.0600, L500.3600, L503.6030, L503.6550 #### [facility] [address] [place], [address] FERRITIN Collected: 09/03/2017 Status: F Source: [place] 11:[address] [facility] TYPE CODE TESTS RESULT OUT OF RANGE REFERENCE UNITS LAB L503.6550 26-388 ng/mL Normal FERRITIN 233 Performed By: #### L100.0600, L500.3600, L503.6030, L503.6550 #### [facility] [address] [place], [address] Observed: 08/30/2017 Status: F Source: [place] CULTURE, WOUND 12:[address] [facility] Gram Stain Gram Stain 2+ Gram negative rods 2+ White Blood Cells Wound Culture ORGANISM 1: Pseudomonas aeroginosa Amount Growth 3+ ORGANISM 2: Staphylococcus aureus Amount Growth Rare Pseudomonas aeroginosa: REACTION Cefepime $ 4 S Ceftazidime *NF 4 S Ciprofloxacin $ <=0.25 S Gentamicin $ 2 S Imipenem *NF 2 S Levofloxacin $ 0.5 S Tobramycin $ <=1 S (NF) indicates non-formulary drug at [facility]. Approval by Infectious Disease Specialist required before non-formulary drugs may be ordered and/or dispensed. Staphylococcus aureus: REACTION Benzylpenicillin NF >=0.5 R Cefoxitin *NF - Clindamycin $$ <=0.25 S Inducable Clindamycin Resistan - Erythromycin $ <=0.25 S Gentamicin $ <=0.5 S Levofloxacin $ <=0.12 S Linezolid $$$$ 2 S Moxifloxicin *NF <=0.25 S Oxacillin NF 0.5 S Tigecycline $$$$ <=0.12 S Rifampin $$ <=0.5 S Tetracycline NF <=1 S Trimethoprim/Sulfametho $ <=10 S Vancomycin $ <=0.5 S (NF) indicates non-formulary drug at [facility]. Approval by Infectious Disease Specialist required before non-formulary drugs may be ordered and/or dispensed. * CLSI guidelines does not recommend testing of cephalosporins. This interpretation is deduced from Beta-lactam/penicillin results. Performed By: #### M100.1400 #### [facility] [address] [place], [address] CARDIOLOGY VISIT Observed: 08/27/2017 Status: F Source: [place] REPORT 11:[address] [facility] [address] [place] [address] OFFICE VISIT Date of Service: 08/27/17 MR#: [id number] Acct: [id number] Name: CUONG MARSHALL Rep #: [id number] : 1945 Provider: Micky Mauro MD Age/Sex: 72/M Location: [facility] [place] Status: Signed HPI HPI Chief Complaint: Follow-up posthospitalization visit. Details: CUONG MARSHALL, is a 72 M who presents to the office today for a follow-up visit. He is a gentleman with a complicated history with a cardiac component being paroxysmal atrial fibrillation history of congestive heart failure hypertension hyperlipidemia and pulmonary emboli. He was recently discharged from the [facility]. As you know he has had a history significant for non-Hodgkin's lymphoma as well with bony metastases status post chemotherapy and radiation therapy to L4-L5. Is also subsequent laminectomy and has had repeated surgeries for nonhealing wound. He recently was discharged after having been diagnosed with a spinal epidural abscess and L4-L5 laminectomy with chronic osteomyelitis. While he was at [facility] he had undergone an echocardiogram which demonstrated mild systolic dysfunction with an estimated ejection fraction of 39%. They had recommended outpatient ischemia evaluation to be completed by us here he was also put on a beta-cyndi. He has had no chest pain no paroxysmal nocturnal dyspnea he has had some pedal edema. He has had no neck arm or jaw discomfort suggest angina though. Intake Vital Signs08/27/17 Height 5 ft 8 in 08/27/17 Weight: 157 lb 6 oz 08/27/17 Body Mass Index (BMI) 23.9 08/27/17 Blood Pressure 110/60 Intake Visit Reasons: 6 M FU; also s/p [facility] Allergies chlorthalidone Allergy (Verified 08/27/17 10:46) Unknown ramipril [From Altace] Allergy (Verified 08/27/17 10:46) Unknown sulfamethoxazole [From Bactrim] Allergy (Verified 08/27/17 10:46) Other trazodone Allergy (Verified 08/27/17 10:46) Unknown trimethoprim [From Bactrim] Allergy (Verified 08/27/17 10:46) Other prednisone Adverse Reaction (Verified 08/27/17 10:46) Swelling Medications Folic Acid 1 mg PO DAILY@0800 02/05/16 [History Confirmed 08/27/17] Magnesium Oxide [Magnesium] 400 mg PO DAILY@0800 02/05/16 [History Confirmed 08/27/17] Cholecalciferol (Vitamin D3) [Vitamin D3] 1,000 unit PO DAILY@0800 10/14/16 [History Confirmed 08/27/17] Gabapentin [Neurontin] 100 mg PO TIDCM 07/04/17 [History Confirmed 08/27/17] Vit C/E/Zn/Coppr/Lutein/Zeaxan [Preservision Areds 2 Softgel] 2 ea PO QHS 07/04/17 [History Confirmed 08/27/17] Acetaminophen [Tylenol] 1,000 mg PO Q8H PRN tab 07/12/17 [Rx Confirmed 08/27/17] Lactobacillus Acidophilus [Acidophilus] 1 tab PO BID #60 tab 07/12/17 [Rx Confirmed 08/27/17] Melatonin 3 mg PO QHS #30 tab 07/12/17 [Rx Confirmed 08/27/17] Mineral Oil/Petrolatum,White [Eucerin] 1 applic TOPICAL BID PRN PRN jar 07/12/17 [Rx Confirmed 08/27/17] Oxycodone HCl 30 mg PO Q4H PRN PRN 07/23/17 [History Confirmed 08/27/17] B-complex with vitamin C tablet 1 tab PO QDAY 08/27/17 [History Confirmed 08/27/17] apixaban 5 mg tablet 2.5 mg PO BID tab 08/27/17 [History Confirmed 08/27/17] atorvastatin 20 mg tablet 20 mg PO QHS #90 tab 08/27/17 [Rx Confirmed 08/27/17] ferrous fumarate 325 mg (106 mg iron) tablet 325 mg PO BID tab 08/27/17 [History Confirmed 08/27/17] furosemide 40 mg tablet 40 mg PO QDAY #90 tab 08/27/17 [Rx Confirmed 08/27/17] metoprolol succinate ER 25 mg tablet,extended release 24 hr 12.5 mg PO DAILY #90 tab 08/27/17 [Rx Confirmed 08/27/17] COUNT INCLUDES THE [facility] Medical History Pulmonary hypertension (Chronic) Ascending aorta dilatation (Chronic) Aortic root dilatation (Chronic) PSVT (paroxysmal supraventricular tachycardia) (Acute) Cardiomyopathy, dilated (Chronic) Chronic diastolic (congestive) heart failure (Chronic) Paroxysmal atrial fibrillation (Chronic) Pleural effusion (Acute) Pericardial effusion (Acute) Pulmonary embolism (Chronic) Chronic kidney disease (Chronic) Non-Hodgkin lymphoma (Chronic) Hyperlipidemia (Chronic) Hypertension (Chronic) Peripheral vascular disease (Chronic) Ascites (Acute) Edema of lower extremity (Acute) Gout (Acute) Hepatic cirrhosis (Acute) Late effect of radiation (Acute) Open wound of lower back (Acute) Chronic ulcer of right leg with fat layer exposed (Chronic) History of DVT (deep vein thrombosis) (Chronic) History of diverticulitis (Chronic) Lumbar disc disease (Chronic) Lymphedema (Chronic) 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) MARY JANE (obstructive sleep apnea) (Chronic) Osteomyelitis (Chronic) Surgical History History of laminectomy (Chronic) History of splenectomy (Chronic) Family History Father Diabetes Heart disease Mother Heart disease Social History Smoking Status: Former smoker alcohol intake: current ROS Const Const: Negative for fatigue, weakness, weight gain, weight loss, frequent falls or excessive sweating Eyes Eyes: Negative for change in vision, blurry vision or transient loss of vision ENT ENT: Positive for balance problems (ambulates with a cane); negative for dizziness Cardio Chest Pain: No Edema: None Muscle aches with walking: None Resp Respiratory: Negative for SOB with activity or SOB at rest GI GI: Negative vomiting or vomiting blood/hematemesis : Negative for hematuria Musc Musc: Positive for balance problems (ambulates with a cane); negative for muscle aches/ myalgia, muscle weakness or joint pain Skin Skin: Negative non-healing lesions or rash Neuro Neuro: Negative for weakness, blurry vision, dizziness, lightheadedness, frequent falls or orthostatic symptoms Vikas Hematologic/Lymphatic: Negative for easy bleeding Endo Endo: Negative for fatigue or excessive sweating Psych Psych: Negative for anxiety or depression Allergy Allergy/Immunology: Negative for hives, Negative for rash Cardiology Exam Const Appearance: cooperative, healthy appearing, well developed, well groomed and no acute distress Nutritional Appearance: well nourished and average body habitus Orientation: alert, awake and oriented x3 Head Head: normal to inspection, normocephalic and atraumatic Ears: hearing grossly normal bilaterally and external ears normal Nose: external nose normal, nasal mucous membranes and turbinates normal, nares normal, septum normal, no nasal discharge Face and Sinus: face symmetric Mouth: oral mucosae normal, tongue normal, oropharynx normal and moist mucous membranes Teeth and gingiva: dentition normal Throat: posterior oropharynx normal, tonsils normal and uvula midline Eyes General: appearance normal, both eyes and all related structures Eyelids: eyelids normal Conjunctivae: conjunctivae normal Pupils: PERRL, normal by confrontation and accommodation normal EOM: EOM intact bilaterally Neck Neck: normal visual inspection, trachea midline and no JVD JVD: +5 Carotids: normal carotid upstroke and bounding pulses Chest Chest inspection: normal inspection of the chest, symmetric chest movement and normal respiratory effort Auscultation: Bilateral: Clear to Auscultation Cardio Palpation: normal PMI Rate: regular rate Rhythm: regular rhythm Heart sounds: S1 normal, S2 normal and normal, physiologic split S2; negative rub, gallop or murmur GI GI: normal to inspection, soft, no hepatosplenomegaly and bowel sounds present Neuro General: alert, awake, oriented x3, no focal sensory deficit, gait normal and moves all extremities Skin Skin: no rashes or lesions noted Extremities Pulses: Normal: Right Femoral Pulse, Left Femoral Pulse, Right Dorsalis Pedis Pulse, Left Dorsalis Pedis Pulse, Right Posterior Tibial Pulse, Left Posterior Tibial Pulse, Right Radial Pulse, Left Radial Pulse Lower Extremity Edema: None: Bilateral Musculoskel Musculoskeletal: No joint tenderness Psych Psychological: normal affect Assessment AND Plan 1. Cardiomyopathy, dilated I42.0 Plan He appears to have developed a cardiomyopathy which I do not think is due to coronary artery disease at this time. He is on a low-dose beta-cyndi and I recommend the addition of an TEETEE inhibitor to his regimen to see how he does. I like to see him again in a few months and at that time maybe consider adding a diuretic. At this time however I do not think that there is any reason to perform any invasive testing on him. 2. Chronic diastolic (congestive) heart failure I50.32 Plan He appears to have mild chronic congestive heart failure which appears to be a combination of systolic and diastolic dysfunction. He also does have some chronic renal disease which may be leading to fluid retention. His last creatinine was noted to be 2.3 and thus I am hesitant to add an TEETEE inhibitor to this regimen. A diuretic may be a better approach at this time. 3. Essential hypertension I10 Plan His blood pressure appears to be under good control at this time and I would not suggest making any changes to this blood pressure medication regimen. 4. Paroxysmal atrial fibrillation I48.0 Plan He has had a history of paroxysmal atrial fibrillation and remains on anticoagulation 5. Pure hypercholesterolemia E78.00; E78.0 Plan He will remain on his current dose of medium to high intensity statin. Thank you for allowing me to participate in the care of your patient. Please don't hesitate to call if any issues arise Plan Detail Other Medications New: Discontinued: sodium chloride Discontinued Reaso10 mL IV UD PRN PICC FLUSH Marzena Jackson n: Pt no longer taking sodium chloride 0.65% Discontinued2 sprays NASAL BID PRN PRN NASAL DRY Marzena Jackson Reason: Pt no longer taking NESS Follow Up 3 Months (tailing hand) Coding Level of Care Code Off vis,est,level 4 Diagnoses Cardiomyopathy, dilated I42.0 Chronic diastolic (congestive) heart failure I50.32 Essential hypertension I10 Hypertension type: essential hypertension Paroxysmal atrial fibrillation I48.0 Pure hypercholesterolemia E78.00; E78.0 Hyperlipidemia type: pure hypercholesterolemia Coding Level of Care Code Off vis,est,level 4 Diagnoses Cardiomyopathy, dilated I42.0 Chronic diastolic (congestive) heart failure I50.32 Essential hypertension I10 Hypertension type: essential hypertension Paroxysmal atrial fibrillation I48.0 Pure hypercholesterolemia E78.00; E78.0 Hyperlipidemia type: pure hypercholesterolemia 08/27/17 1121 <Electronically signed by Micky Mauro MD> Date Micky Mauro MD Cosigner Signature: Date (if applicable) CC: Linus Lindquist DO CBC W/DIFF, AUTOMATED Collected: 08/20/2017 Status: F Source: [place] 10:[address] [facility] REPOSITORY TYPE CODE TESTS RESULT OUT OF RANGE REFERENCE UNITS LAB L100.1000 4.4-11.0 K/mm3 Normal WBC 6.9 LAB L100.1200 4.6-6.2 M/mm3 Low RBC 2.81 LAB L100.1300 13.0-16.5 g/dl Low HGB 9.0 LAB L100.1400 40-54 % Low HCT 28.6 LAB L100.1500 80-94 fL High MCV 101.8 LAB L100.1600 27.0-32.0 pg Normal MCH 32.0 LAB L100.1700 32-36 g/gl Low MCHC 31.5 LAB L100.1810 11.6-14.6 % High RDW CV 16.2 LAB L100.1820 35.1-43.9 fl High RDW SD 60.1 LAB L100.1900 150-450 K/mm3 Normal PLT 191 LAB L100.2000 6.2-12.0 fl Normal MPV 9.1 LAB L100.2100 47-70 % Normal NEUT% 62.2 LAB L100.2200 19-41 % Normal LY% 21.2 LAB L100.2300 0-10 % High MONO% 13.0 LAB L100.2400 0-5 % Normal EO% 3.2 LAB L100.2500 0-1 % Normal BASO% 0.3 LAB L100.2550 0.0-0.9 % Normal IM GRAN % 0.100 Result Comment: IG% - Immature Granulocytes (promyelocytes, myelocytes and metamyelocytes) > 1% indicates that a LEFT SHIFT is Present. LAB L100.2620 2.0-7.7 X10 3/uL Normal Absolute Neut 4.3 LAB L100.2720 0.83-4.51 X10 3/ul Normal Absolute Lymph 1.47 Performed By: #### L100.0100 #### [facility] [address] [place], [address] WOUND CTR HISTORY Observed: 08/09/2017 Status: F Source: [place] AND PHYSICAL 1:[address] [facility] REPOSITORY [facility] [address] [place] [address] Wound Ctr History AND Physical 08/07/178 MR#: [id number] Acct: [id number] Name: CUONG MARSHALL Rep #: [id number] : 1945 72 From: Garrick Hills MD PCP: Linus Lindquist DO Status: REG RCR Y Location: (1) Nonhealing surgical wound Status: Chronic Current Visit: No Qualifiers: Code(s): T81.89XA - Other complications of procedures, not elsewhere classified, initial encounter (2) Open wound of lower back Status: Chronic Current Visit: No Code(s): S31.000A - Unspecified open wound of lower back and pelvis without penetration into retroperitoneum, initial encounter (3) Osteomyelitis of lumbar spine Status: Chronic Current Visit: No Code(s): M46.26 - Osteomyelitis of vertebra, lumbar region History of Present Illness Date of Service: 08/07/17 Chief Complaint: Nonhealing surgical wound of lower back History of Wound: Mr. Marshall is a 72-yo who has been sen here at the wound center for a nonhealing surgical wound of his lower back s/p surgical debridement for an abscess s/p lumbar spine surgery. His original surgery on his lower back was approximately 18 months ago and he has had multiple complications since that time. He underwent surgical debridement on 03/04/[address] Davila at [facility] in [place] and was discharged with a wound vac for healing by secondary intention with possible muscle flap closure in the future. He followed up with his surgeon on 04/18/17 for further evaluation and recommendations and they plan to close the wound with a muscle flap. He had previously been seen by Dr. Wick however, he was transffered to my care due to her FMLA. He denies any active complaints at this time. He had a wound culture done at his last visit which grew Candidia Albicans and VRE. He is also being seen by Infectious Disease. 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 Wound debridement 03/04/2017, 05/14/2017 at [facility]> Allergies/Adverse Reactions: Allergies chlorthalidone Allergy (Verified 08/06/17 11:09) Unknown ramipril [From Altace] Allergy (Verified 08/06/17 11:09) Unknown sulfamethoxazole [From Bactrim] Allergy (Verified 08/06/17 11:09) Other trazodone Allergy (Verified 08/06/17 11:09) Unknown trimethoprim [From Bactrim] Allergy (Verified 08/06/17 11:09) Other prednisone Adverse Reaction (Verified 08/06/17 11:09) Swelling Home Medications: Ambulatory Orders Medication Instructions Recorded Ferrous Gluconate 240 mg PO BID 02/05/16 Folic Acid 1 mg PO DAILY@0800 02/05/16 Magnesium Oxide [Magnesium] 400 mg PO DAILY@0800 02/05/16 Apixaban [Eliquis] 2.5 mg PO BID 03/16/16 - Family History Maternal Family History: Family History (Last Updated 07/17/17 @ 16:05 by Marzena Jackson) Father Diabetes Heart disease Mother Heart disease Heart Disease Paternal Family History: Family History (Last Updated 07/17/17 @ 16:05 by Marzena Jackson) Father Diabetes Heart disease Mother Heart disease Diabetes Smoking Status: Former smoker Tobacco Use: Non-smoker Review of Systems Constitutional: Denies: Anorexia, Chills, Malaise Eyes: Denies: Blurred vision, Redness Cardiovascular: Denies: Chest Pain, Chest Tightness Respiratory: Denies: Hemoptysis, Wheezing Gastrointestinal: Denies: Abdominal Pain, Hematemesis, Vomiting Skin: Denies: Jaundice - Physical Exam Vital Signs Temp Pulse Resp BP 95.3 F L 73 16 146/72 H 08/07/17 11:35 08/07/17 11:35 08/07/17 11:35 08/07/17 11:35 General: Alert, Oriented x3, Cooperative, No apparent distress HEENT: Atraumatic, Normocephalic Oral: Moist Mucosa Neck: Supple Lungs: Normal air movement Cardiovascular: Regular rate Extremities: No cyanosis Skin: Ulcer/ Wound Wound Measurements and Assessment WC - Nurse 1 - General Ulcer Measurement Start: 08/07/17 11:33 Freq: Status: Active Protocol: Activity Type Activity Date Activity User E-Sign Co-Sign Detail Recorded Client Recorded Date Recorded By Document 08/07/17 11:35 [facility] [id number] 08/07/17 11:44 [facility] Wound Center Nurse 1 - Nurse 2 - General Ulcer CM Notes Start: 08/07/17 11:33 Freq: Status: Active Protocol: Activity Type Activity Date Activity User E-Sign Co-Sign Detail Recorded Client Recorded Date Recorded By Document 08/07/17 12:36 DV [id number] 08/07/17 12:43 DV Musculoskeletal: No Muscle Wasting Neurological: Cranial nerves II-XII grossly intact Psych/Mental Status: Normal Affect Debridement Note Post-Debridement Measurements/Treatment - Nurse 2 - General Ulcer CM Notes Start: 08/07/17 11:33 Freq: Status: Active Protocol: Activity Type Activity Date Activity User E-Sign Co-Sign Detail Recorded Client Recorded Date Recorded By Document 08/07/17 12:36 DV [id number] 08/07/17 12:43 [facility] Wound Center Nurse 2 #9 Lower Lumbar- Midline -Time 12:36 -Correct Patient Yes -Correct Side, Site, Position Yes Wound debrided: Midline Lumbar (Spine ) area Wound Grade/Stage: Stage III Type of Debridement: Excisional debridement Anesthesia Used: 4% Lidocaine Solution Depth: Down to and including healthy tissue, in the subcutaneous layer Percentage of wound debrided: 100 Instrument Used: 7mm curette Tissue Removed: Slough and Devitalized tissue Severity: Fat Layer Exposed Amount of bleeding with debridement: Mild Bleeding Controlled with: Silver Nitrate Patient tolerated procedure well Assessment/Plan Assessment: chronic surgical wound dehiscence lumbar with complex abscess and recent surgical debridement. malnutrition. other multiple comorbidities. edema bilateral lower extremities. venous insufficiency. immunocompromised status. Plan: Mr. Marshall is here for follow up of his chronic wound. Cultures done at last visit positive for candidia Albicans and VRE. Wound however said to have been stable over the past week though patient appears to have been having a malfuctioning of his wound Vac over the last 2 days. Debridement done as documented above. Procedure was well tolerated. Wet to dry dressing for now until wound VAC is sorted out within the next 24 hours. Case/cultures discussed with Dr. Akers. Will start on Fluconazole 200mg daily x 2 weeks and Linezolid 600mg BID x 2 weeks. Follow up with Dr. Akers in the wound center in 1 week. Continue high protein diet. Follow up in 2 weeks with al. 08/09/17 1312 <Electronically signed by Garrick Hills MD> Date Garrick Hills MD CC: Signed HH, HEMOGLOBIN AND Collected: 08/06/2017 Status: F Source: [place] HEMATOCRIT 11:[address] [facility] REPOSITORY TYPE CODE TESTS RESULT OUT OF RANGE REFERENCE UNITS LAB L100.1300 13.0-16.5 g/dl Low HGB 9.0 LAB L100.1400 40-54 % Low HCT 28.4 Performed By: #### L100.0600, L500.3600 #### [facility] [address] [place], [address] RENAL PROFILE Collected: 08/06/2017 Status: F Source: HAN 11:[address] [facility] REPOSITORY TYPE CODE TESTS RESULT OUT OF RANGE REFERENCE UNITS LAB L501.0100 74-106 mg/dL Normal GLU 89 Result Comment: Please note revised GLUCOSE reference range effective 2017. LAB L501.1000 7-18 mg/dL High BUN 34 LAB L501.1100 0.70-1.30 mg/dL High CREAT,SERUM 2.32 Result Comment: The validity of the calculated GFR AND GFRAA in patients over 70 years has not been determined. Clinical correlation is essential. LAB L501.1110 >60 mL/min Low EST GFR 30 Result Comment: Non- GFR Calc LAB L501.1115 >60 mL/min Low EST GFR - AA 36 Result Comment: GFR Calc LAB L501.1300 10-20 RATIO Normal BUN/CRE 14.7 LAB L501.1800 3.2-5.0 g/dL Low ALB 2.3 LAB L501.2200 8.5-10.1 mg/dL CA Normal 8.8 LAB L501.2300 2.5-4.9 mg/dL Normal PHOS 3.8 LAB L501.5300 136-145 mmol/L NA Normal 140 LAB L501.5600 3.5-5.1 mmol/L K Normal 4.3 LAB L501.5900 98-107 mmol/L CL Normal 107 LAB L501.6100 21.0-32.0 mmol/L Normal CO2 28.0 Performed By: #### L100.0600, L500.3600 #### [facility] [address] [place], [address] Observed: 08/02/2017 Status: F Source: [place] CULTURE, DEEP WOUND 2:[address] [facility] REPOSITORY Comments: LUMBAR SPINE ULCER. Gram Stain Gram Stain 4+ Red Blood Cells Very Rare Gram positive cocci No White Blood Cells Wound Culture RESULTS CALLED TO WOUND CENTER NURSE LINE 08/07/17 Radha7 Jazz Schwarz. Copy of report sent to Infection Control Printer [id number] 08/07/17 2037 EMILY. ORGANISM 1: Presumptive C albicans Amount Growth 2+ ORGANISM 2: Vancomycin Resist. E. faecium Amount Growth 2+ Vancomycin Resist. E. faecium: REACTION Ampicillin $ >=32 R Benzylpenicillin NF >=64 R Gentamicin SYN-S S Linezolid $$$$ 2 S Tigecycline $$$$ <=0.12 S Streptomycin $ SYN-S S Vancomycin $ >=32 R (NF) indicates non-formulary drug at [facility]. Approval by Infectious Disease Specialist required before non-formulary drugs may be ordered and/or dispensed. * CLSI guidelines does not recommend testing of cephalosporins. This interpretation is deduced from Beta-lactam/penicillin results. Cult, Anaerobic No anaerobic bacteria isolated. Performed By: #### M100.1500 #### [facility] [address] [place], [place], [id number] CBC-COMPLETE BLOOD CNT Collected: 07/30/2017 Status: F Source: [place] NO DIFF 1:[address] [facility] REPOSITORY TYPE CODE TESTS RESULT OUT OF RANGE REFERENCE UNITS LAB L100.1000 4.4-11.0 K/mm3 Normal WBC 10.4 LAB L100.1200 4.6-6.2 M/mm3 Low RBC 2.37 LAB L100.1300 13.0-16.5 g/dl Low HGB 7.5 LAB L100.1400 40-54 % Low HCT 24.2 LAB L100.1500 80-94 fL High MCV 102.1 LAB L100.1600 27.0-32.0 pg Normal MCH 31.6 LAB L100.1700 32-36 g/gl Low MCHC 31.0 LAB L100.1810 11.6-14.6 % High RDW CV 17.1 LAB L100.1820 35.1-43.9 fl High RDW SD 62.6 LAB L100.1900 150-450 K/mm3 Normal PLT 368 LAB L100.2000 6.2-12.0 fl Normal MPV 9.7 Performed By: #### L100.0500, L101.9900 #### [facility] [address] [place], [place], [id number] ERYTHROCYTE SED RATE Collected: 07/30/2017 Status: F Source: [place] 1:[address] [facility] REPOSITORY TYPE CODE TESTS RESULT OUT OF RANGE REFERENCE UNITS LAB L102.0000 0-20 mm/hr High SED RATE 83 Performed By: #### L100.0500, L101.9900 #### [facility] [address] [place], [address] BASIC METABOLIC Collected: 07/30/2017 Status: F Source: [place] PROFILE (BMP) 1:[address] [facility] REPOSITORY TYPE CODE TESTS RESULT OUT OF RANGE REFERENCE UNITS LAB L501.0100 74-106 mg/dL Normal GLU 99 Result Comment: Please note revised GLUCOSE reference range effective 2017. LAB L501.1000 7-18 mg/dL High BUN 34 LAB L501.1100 0.70-1.30 mg/dL High CREAT,SERUM 2.87 Result Comment: The validity of the calculated GFR AND GFRAA in patients over 70 years has not been determined. Clinical correlation is essential. LAB L501.1110 >60 mL/min Low EST GFR 23 Result Comment: Non- GFR Calc LAB L501.1115 >60 mL/min Low EST GFR - AA 28 Result Comment: GFR Calc LAB L501.1300 10-20 RATIO Normal BUN/CRE 11.8 LAB L501.2200 8.5-10.1 mg/dL CA Normal 8.8 LAB L501.5300 136-145 mmol/L NA Normal 142 LAB L501.5600 3.5-5.1 mmol/L K Normal 3.6 LAB L501.5900 98-107 mmol/L CL Normal 107 LAB L501.6100 21.0-32.0 mmol/L Normal CO2 25.0 LAB L501.6200 5-15 Normal GAP 10 Performed By: #### L500.2500 #### [facility] [place], [address] VANCOMYCIN, TROUGH Collected: 07/30/2017 Status: F Source: [place] LEVEL 1:[address] [facility] REPOSITORY Order Comment: Time Medication is to be Given? 1300 TYPE CODE TESTS RESULT OUT OF RANGE REFERENCE UNITS LAB L501.8820 5.0-15.0 ug/mL Normal VANCO, TROUGH 14.7 Result Comment: VANCOMYCIN STANDARED DRUG THERAPY TROUGH LEVEL: 5.0 - 15.0 mg/L VANCOMYCIN HIGH INTENSITY THERAPY TROUGH LEVEL: 15.0 - 20.0 mg/L High Intensity therapy recommended for serious life threatening infections include: - Meningitis -Endocarditis -Pneumonia (Ventilator/Healtcare Associated) -Sepsis PLEASE CONTACT PHARMACY SERVICES (#[id number]) FOR INTERPRETATION OF RESULTS. Performed By: #### L501.8820 #### [facility] [address] [place], [place], [id number] BASIC METABOLIC Collected: 07/30/2017 Status: F Source: [place] PROFILE (BMP) 1:[address] [facility] REPOSITORY TYPE CODE TESTS RESULT OUT OF RANGE REFERENCE UNITS LAB L501.0100 74-106 mg/dL Normal GLU 99 Result Comment: Please note revised GLUCOSE reference range effective 2017. LAB L501.1000 7-18 mg/dL High BUN 34 LAB L501.1100 0.70-1.30 mg/dL High CREAT,SERUM 2.87 Result Comment: The validity of the calculated GFR AND GFRAA in patients over 70 years has not been determined. Clinical correlation is essential. LAB L501.1110 >60 mL/min Low EST GFR 23 Result Comment: Non- GFR Calc LAB L501.1115 >60 mL/min Low EST GFR - AA 28 Result Comment: GFR Calc LAB L501.1300 10-20 RATIO Normal BUN/CRE 11.8 LAB L501.2200 8.5-10.1 mg/dL CA Normal 8.8 LAB L501.5300 136-145 mmol/L NA Normal 142 LAB L501.5600 3.5-5.1 mmol/L K Normal 3.6 LAB L501.5900 98-107 mmol/L CL Normal 107 LAB L501.6100 21.0-32.0 mmol/L Normal CO2 25.0 LAB L501.6200 5-15 Normal GAP 10 Performed By: #### L500.2500 #### [facility] [address] [place], [place], [address] CBC-COMPLETE BLOOD CNT Collected: 07/30/2017 Status: F Source: [place] NO DIFF 1:[address] [facility] REPOSITORY TYPE CODE TESTS RESULT OUT OF RANGE REFERENCE UNITS LAB L100.1000 4.4-11.0 K/mm3 Normal WBC 10.4 LAB L100.1200 4.6-6.2 M/mm3 Low RBC 2.37 LAB L100.1300 13.0-16.5 g/dl Low HGB 7.5 LAB L100.1400 40-54 % Low HCT 24.2 LAB L100.1500 80-94 fL High MCV 102.1 LAB L100.1600 27.0-32.0 pg Normal MCH 31.6 LAB L100.1700 32-36 g/gl Low MCHC 31.0 LAB L100.1810 11.6-14.6 % High RDW CV 17.1 LAB L100.1820 35.1-43.9 fl High RDW SD 62.6 LAB L100.1900 150-450 K/mm3 Normal PLT 368 LAB L100.2000 6.2-12.0 fl Normal MPV 9.7 Performed By: #### L100.0500 #### [facility] [address] [facility] [place], [address] ERYTHROCYTE SED RATE Collected: 07/30/2017 Status: F Source: [place] 1:[address] [facility] REPOSITORY TYPE CODE TESTS RESULT OUT OF RANGE REFERENCE UNITS LAB L102.0000 0-20 mm/hr High SED RATE 83 Performed By: #### L101.9900 #### [facility] [address] [place], [address] VANCOMYCIN, TROUGH Collected: 07/30/2017 Status: F Source: [place] LEVEL 1:[address] [facility] REPOSITORY Order Comment: Time Medication is to be Given? 1300 TYPE CODE TESTS RESULT OUT OF RANGE REFERENCE UNITS LAB L501.8820 5.0-15.0 ug/mL Normal VANCO, TROUGH 14.7 Result Comment: VANCOMYCIN STANDARED DRUG THERAPY TROUGH LEVEL: 5.0 - 15.0 mg/L VANCOMYCIN HIGH INTENSITY THERAPY TROUGH LEVEL: 15.0 - 20.0 mg/L High Intensity therapy recommended for serious life threatening infections include: - Meningitis -Endocarditis -Pneumonia (Ventilator/Healtcare Associated) -Sepsis PLEASE CONTACT PHARMACY SERVICES (#[id number]) FOR INTERPRETATION OF RESULTS. Performed By: #### L501.8820 #### [facility] [address] [facility] [place], [address] EMERGENCY DEPARTMENT Observed: 07/25/2017 Status: F Source: [place] SUMMARY 12:[address] [facility] REPOSITORY [facility] Medical Records Department [address] [place] [address] Emergency Department Summary 07/24/17 1853 MR#: [id number] Acct: [id number] Name: CUONG MARSHALL Rep #: [id number] : 1945 72 From: Andi Arnett DO PCP: Linus Lindquist DO Status: DEP ER - ER Visit Summary Date of Service: 07/24/17 Chief Complaint: Epidural abscess wound History of Present Illness: The patient is a 72 M presents with bleeding from a chronic wound of the low back. Patient had a epidural abscess that was surgically cared for at [facility]. He has been home on vancomycin and a wound VAC. He is on Eliquis. The patient had home health nurse come out today to change the dressing. They noted bleeding from the wound. They are unable to get this to stop. Advised the patient to come to the emergency room. Physical Examination: Afebrile vital signs are stable Gen: Well-nourished well-developed Head: Normocephalic atraumatic Eyes: Perrl EOMI ENT: TMs clear no rhinorrhea moist mucous membranes Neck: Supple no lymphadenopathy no JVD nontender CVS: Regular rate rhythm no murmurs normal S1-S2 Respiratory: No distress clear to auscultation bilaterally chest nontender Abdomen: Soft nontender nondistended normal bowel sounds no masses Back: There is a very large lumbar midline chronic wound. The inner tissue is pink. There is fresh clot around most of the wound. Approximately an inch above the lower end of the wound there is a pinpoint area that is actively oozing dark red blood. Extremity: Nontender no edema Skin: Normal color no rash Neuro: alert orientated 3 CN II-XII intact normal strength sensation reflexes gait cerebellar Psych: Normal affect normal mood Emergency Department Course and Treatment: Gelfoam was placed over the area of bleeding. Followed by a compressive dressing of gauze ABD and tape. He was observed. Impression: 1. Wound bleeding This note was generated with [employer] dictation software. It may contain incorrect words, spelling, and punctuation that were not noted in review of the chart prior to signing ED Disposition - Plan for ED Patient: Chief Complaint: Wound Check Instructions: ED Wound Check Post Op Bleeding Referrals: Linus Lindquist DO [Primary Care Provider] - Malys,Monica, DO [STAFF PHYSICIAN] - ( SCHEDULED) What to do if you have Problems For any increased pain, shortness of breath, bleeding, nausea or vomiting, chest pain, or any unexpected problems, contact your Primary Care Provider. Call [facility] ([phone]) or report to the closest Emergency Room. Call 911 if necessary. 07/25/17 0000 <Electronically signed by Andi Arnett DO> Date Andi Arnett DO Cosigner Signature (If Indicated): Date CC: Linus Lindquist DO SPINE LUMBAR Observed: 07/24/2017 Status: F Source: [place] (ROUTINE) 12:[address] [facility] REPOSITORY [facility] Imaging Services [address] [place] [id number] Spine Lumbar (Routine) MR#: [id number] Acct: [id number] Name: CUONG MARSHALL Rep #: [id number] : 1945 M 72 From: Juan Antonio De Leon MD PCP: Linus Lindquist DO Status: REG CLI Study: Spine Lumbar (Routine) Date of Exam: 07/24/17 Exam# [id number] Ordering Dr: Dimas Major MD STUDY: MRI LUMBAR SPINE WITHOUT CONTRAST REASON FOR EXAM: Male, 72 years old. Epidural abscess TECHNIQUE: Standardized fat and water weighted pulse sequences were obtained in the sagittal and axial planes. COMPARISON: June 25, 2017 FINDINGS: The previously described fluid collection in the right dorsal and lateral epidural space at the L5-S1 level has resolved. No significant residual mass effect on the thecal sac at that level. The transiting nerve roots at that level have a normal appearance. Stable remote L5 compression deformity with changes of remote osteonecrosis. No acute compression fractures. Conus medullaris terminates at the L1 level and is unremarkable. No new epidural collections are seen on this noncontrast study. Stable irregularities and heterogeneous signal abnormalities involving the L2, L3, and L4 spinous processes. Bilateral L4-5 laminectomies been performed. Multiple postoperative changes in the posterior subcutaneous tissues with wound packing in place. No pseudomeningoceles are seen. Stable disc disease. Severe foraminal stenosis on the right at the L5-S1 level. Renal cysts. MRI/Spine Lumbar (Routine) IMPRESSION: The previously described fluid collection in the right dorsal epidural space at the L5-S1 level has resolved. No new epidural collections are seen on this noncontrast study. Stable irregularities and heterogeneous signal abnormalities involving the L2, L3, and L4 spinous processes. Osteomyelitis could have this MRI appearance. Multiple postoperative changes as described. Stable disc disease. Severe foraminal stenosis on the right at the L5-S1 level. Electronically Signed: Juan Antonio De Leon MD at 4:44 EDT Tel , Service support , CC: Linus Lindquist DO; Dimas Major MD Cloth Designer: Signed CBC-COMPLETE BLOOD CNT Collected: 07/22/2017 Status: F Source: [place] NO DIFF 4:[address] [facility] REPOSITORY TYPE CODE TESTS RESULT OUT OF RANGE REFERENCE UNITS LAB L100.1000 4.4-11.0 K/mm3 Normal WBC 8.2 LAB L100.1200 4.6-6.2 M/mm3 Low RBC 2.36 LAB L100.1300 13.0-16.5 g/dl Low HGB 7.4 LAB L100.1400 40-54 % Low HCT 23.7 LAB L100.1500 80-94 fL High MCV 100.4 LAB L100.1600 27.0-32.0 pg Normal MCH 31.4 LAB L100.1700 32-36 g/gl Low MCHC 31.2 LAB L100.1810 11.6-14.6 % High RDW CV 16.9 LAB L100.1820 35.1-43.9 fl High RDW SD 61.3 LAB L100.1900 150-450 K/mm3 Normal PLT 367 LAB L100.2000 6.2-12.0 fl Normal MPV 10.0 Performed By: #### L100.0500, L101.9900 #### [facility] [address] [place], [address] ERYTHROCYTE SED RATE Collected: 07/22/2017 Status: F Source: HAN 4:[address] [facility] REPOSITORY TYPE CODE TESTS RESULT OUT OF RANGE REFERENCE UNITS LAB L102.0000 0-20 mm/hr High SED RATE 66 Performed By: #### L100.0500, L101.9900 #### [facility] [address] [place], [address] BASIC METABOLIC Collected: 07/22/2017 Status: F Source: [place] PROFILE (BMP) 4:[address] [facility] REPOSITORY Order Comment: BLOOD NOT SPUN WITHING 2 HOURS TYPE CODE TESTS RESULT OUT OF RANGE REFERENCE UNITS LAB L501.0100 74-106 mg/dL Normal GLU 79 Result Comment: Please note revised GLUCOSE reference range effective 2017. LAB L501.1000 7-18 mg/dL High BUN 29 LAB L501.1100 0.70-1.30 mg/dL High CREAT,SERUM 2.64 Result Comment: The validity of the calculated GFR AND GFRAA in patients over 70 years has not been determined. Clinical correlation is essential. LAB L501.1110 >60 mL/min Low EST GFR 25 Result Comment: Non- GFR Calc LAB L501.1115 >60 mL/min Low EST GFR - AA 31 Result Comment: GFR Calc LAB L501.1300 10-20 RATIO Normal BUN/CRE 11.0 LAB L501.2200 8.5-10.1 mg/dL Low CA 8.2 LAB L501.5300 136-145 mmol/L NA Normal 141 LAB L501.5600 3.5-5.1 mmol/L K Normal 3.9 LAB L501.5900 98-107 mmol/L CL Normal 104 LAB L501.6100 21.0-32.0 mmol/L Normal CO2 24.0 LAB L501.6200 5-15 Normal GAP 13 Performed By: #### L500.2500 #### [facility] [address] [place], [address] VANCOMYCIN, TROUGH Collected: 07/22/2017 Status: F Source: HAN LEVEL 4:[address] [facility] REPOSITORY Order Comment: Time Medication is to be Given? 0000 TYPE CODE TESTS RESULT OUT OF REFERENCE UNITS RANGE LAB L501.8820 5.0-15.0 ug/mL High VANCO, TROUGH 16.5 Result Comment: VANCOMYCIN STANDARED DRUG THERAPY TROUGH LEVEL: 5.0 - 15.0 mg/L VANCOMYCIN HIGH INTENSITY THERAPY TROUGH LEVEL: 15.0 - 20.0 mg/L High Intensity therapy recommended for serious life threatening infections include: - Meningitis -Endocarditis -Pneumonia (Ventilator/Healtcare Associated) -Sepsis PLEASE CONTACT PHARMACY SERVICES (#[id number]) FOR INTERPRETATION OF RESULTS. Performed By: #### L501.8820 #### [facility] [address] [place], [address] WOUND CTR HISTORY Observed: 07/19/2017 Status: F Source: HAN AND PHYSICAL 6:[address] [facility] REPOSITORY [facility] [address] [place] [address] Wound Ctr History AND Physical 07/19/17 1718 MR#: [id number] Acct: [id number] Name: CUONG MARSHALL Rep #: [id number] : 1945 72 From: Monica Wick DO PCP: Linus Lindquist DO Status: REG RCR Y Location: (1) Nonhealing surgical wound Status: Chronic Current Visit: Yes Qualifiers: Encounter type: subsequent encounter Qualified Code(s): T81.89XD - Other complications of procedures, not elsewhere classified, subsequent encounter Code(s): T81.89XA - Other complications of procedures, not elsewhere classified, initial encounter (2) Open wound of lower back Status: Chronic Current Visit: Yes Code(s): S31.000A - Unspecified open wound of lower back and pelvis without penetration into retroperitoneum, initial encounter (3) Osteomyelitis of lumbar spine Status: Chronic Current Visit: Yes Code(s): M46.26 - Osteomyelitis of vertebra, lumbar region (4) 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 Status: Chronic Current Visit: Yes Code(s): G06.1 - Intraspinal abscess and granuloma (5) Paroxysmal atrial fibrillation Status: Chronic Current Visit: No Code(s): I48.0 - Paroxysmal atrial fibrillation (6) Chronic kidney disease Status: Chronic Current Visit: No Code(s): N18.9 - Chronic kidney disease, unspecified History of Present Illness Date of Service: 07/19/17 Chief Complaint: Nonhealing surgical wound of lower back History of Wound: Cuong is a 71-year-old white male who presents for treatment of nonhealing surgical wound of his lower back s/p surgical debridement for an abscess s/p lumbar spine surgery. His original surgery on his lower back was approximately February 2016 and he has had multiple complications since that time. He underwent surgical debridement on 03/04/[address] Davila at [facility] in [place] and was discharged with a wound vac for healing by secondary intention with possible muscle flap closure in the future. He has been scheduled several times for muscle flap closure at [facility] over the last several months but each time his surgeon has felt that there is an infection and postponed surgery. He was discontinued off of the wound vac in May and was using wet to dry dressings in preparation for surgery and was being seen here for debridements until surgery until he was again hospitalized in June 21, 2017 for sepsis, A. fib and heart failure. He was found to have an epidural abscess and osteomyelitis of L5 and ultimately was transferred to [facility] as they felt he may need surgical debridement and drainage of the abscess. At [facility] testing was repeated and the abscess had shrunk in size. He was discharged on IV antibiotics of Zosyn and Vancomycin until 07/30/17. He was also restarted on the wound vac at 125 mm Hg. He is scheduled for a repeat MRI on 07/24/17 and if abscess is resolved then they will consider surgical wound closure with muscle flap again. He denies fever, chills, nausea, vomiting, redness. He is here with his today. 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 Wound debridement 03/04/2017, 05/14/2017 at [facility]> Allergies/Adverse Reactions: Allergies chlorthalidone Allergy (Verified 07/17/17 10:57) Unknown ramipril [From Altace] Allergy (Verified 07/17/17 10:57) Unknown sulfamethoxazole [From Bactrim] Allergy (Verified 07/17/17 10:57) Other trazodone Allergy (Verified 07/17/17 10:57) Unknown trimethoprim [From Bactrim] Allergy (Verified 07/17/17 10:57) Other prednisone Adverse Reaction (Verified 07/17/17 10:57) Swelling Home Medications: Ambulatory Orders Medication Instructions Recorded - Family History Maternal Family History: Family History (Last Updated 07/17/17 @ 16:05 by Marzena Jackson) Father Diabetes Heart disease Mother Heart disease Heart Disease Paternal Family History: Family History (Last Updated 07/17/17 @ 16:05 by Marzena Jackson) Father Diabetes Heart disease Mother Heart disease Diabetes Lives: Spouse/ Significant Other Smoking Status: Former smoker Tobacco Use: Non-smoker Alcohol: Rare Drugs: None Review of Systems Constitutional: Denies: Chills, Fever, Weight Change Eyes: Denies: Pain, Vision Change HEENT: Denies: Difficulty Hearing, Difficulty Swallowing, Sinus Congestion Cardiovascular: Denies: Chest Pain, Palpitations Respiratory: Denies: Cough, Shortness of Breath Gastrointestinal: Denies: Diarrhea, Nausea, Vomiting Genitourinary: Denies: Dysuria, Hematuria Musculoskeletal: Reports: Back Pain Skin: Reports: Dryness, Wounds Endocrine: Denies: Heat/ Cold Intolerance, Polydipsia, Polyuria Hematologic/ Lymphatic: Denies: Easy Bruising, Easy Bleeding - Physical Exam Vital Signs Temp Pulse Resp BP 98.0 F 76 18 126/65 H 07/19/17 13:47 07/04/17 00:34 07/04/17 00:34 07/04/17 00:34 General: Alert, Oriented x3, Cooperative, No apparent distress HEENT: Atraumatic, Normocephalic Oral: Moist Mucosa Lungs: Clear to auscultation Cardiovascular: Regular rate, Regular Rhythm Abdomen: Soft, Non Tender Extremities: Edema Skin: Ulcer/ Wound Wound Measurements and Assessment WC - Nurse 1 - General Ulcer Measurement Start: 07/19/17 10:43 Freq: Status: Active Protocol: Activity Type Activity Date Activity User E-Sign Co-Sign Detail Recorded Client Recorded Date Recorded By Document 07/19/17 13:47 DV [id number] 07/19/17 14:00 DV Wound Center Nurse 1 [Ulcer Assessment] #9 Lower Lumbar- Midline -Combined with other wound No - Nurse 2 - General Ulcer CM Notes Start: 07/19/17 10:43 Freq: Status: Active Protocol: Activity Type Activity Date Activity User E-Sign Co-Sign Detail Recorded Client Recorded Date Recorded By Document 07/19/17 14:30 TM [id number] 07/19/17 14:53 Wound Center Nurse 2 Psych/Mental Status: Normal Affect, Appropriate Debridement Note Post-Debridement Measurements/Treatment WC - Nurse 2 - General Ulcer CM Notes Start: 07/19/17 10:43 Freq: Status: Active Protocol: Activity Type Activity Date Activity User E-Sign Co-Sign Detail Recorded Client Recorded Date Recorded By Document 07/19/17 14:30 TM [id number] 07/19/17 14:53 Wound Center Nurse 2 #9 Lower Lumbar- Midline -Time 14:31 -Correct Patient Yes -Correct Side, Site, Position Yes Wound debrided: lower lumbar - midline Laterality: Not Applicable Type of Debridement: Excisional debridement Anesthesia Used: 4% Lidocaine Solution Depth: Down to and including healthy tissue, in the subcutaneous layer Percentage of wound debrided: 100 Instrument Used: 5mm curette Tissue Removed: yellow slough and devitalized tissue Severity: Fat Layer Exposed Amount of bleeding with debridement: Mild Bleeding Controlled with: Compression and gauze, Silver Nitrate Patient tolerated procedure well Assessment/Plan Active Problems (Last Updated 07/17/17 @ 16:04 by Marzena Jackson) Nonhealing surgical wound (Chronic) Open wound of lower back (Chronic) 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 malnutrition. other multiple comorbidities. edema bilateral lower extremities. venous insufficiency. immunocompromised status. Plan: Cuong's wound/ulcer was evaluated and debrided today. It is improved in size and in depth since his last visit. The tissue appears healthy and without signs of infection currently. No odor is present. Will continue wound vac at 125 mm Hg with changes three times/week. Continue IV antibiotics as directed and MRI as scheduled. He will call if he has any redness or odor or increased drainage. F/U 1 week. 07/19/171801 <Electronically signed by Monica Wick DO> Date Monica Wick DO CC: Signed BASIC METABOLIC Collected: 07/19/2017 Status: F Source: [place] PROFILE (BMP) 9:[address] [facility] REPOSITORY TYPE CODE TESTS RESULT OUT OF RANGE REFERENCE UNITS LAB L501.0100 74-106 mg/dL Normal GLU 77 Result Comment: Please note revised GLUCOSE reference range effective 2017. LAB L501.1000 7-18 mg/dL High BUN 27 LAB L501.1100 0.70-1.30 mg/dL High CREAT,SERUM 2.39 Result Comment: The validity of the calculated GFR AND GFRAA in patients over 70 years has not been determined. Clinical correlation is essential. LAB L501.1110 >60 mL/min Low EST GFR 29 Result Comment: Non- GFR Calc LAB L501.1115 >60 mL/min Low EST GFR - AA 34 Result Comment: GFR Calc LAB L501.1300 10-20 RATIO Normal BUN/CRE 11.3 LAB L501.2200 8.5-10.1 mg/dL CA Normal 8.9 LAB L501.5300 136-145 mmol/L NA Normal 139 LAB L501.5600 3.5-5.1 mmol/L K Normal 4.0 LAB L501.5900 98-107 mmol/L CL Normal 106 LAB L501.6100 21.0-32.0 mmol/L Normal CO2 22.0 LAB L501.6200 5-15 Normal GAP 11 Performed By: #### L500.2500 #### [facility] [address] [place], [address] VANCOMYCIN, TROUGH Collected: 07/19/2017 Status: F Source: HAN LEVEL 9:[address] [facility] REPOSITORY Order Comment: Time Medication is to be Given? 0945 TYPE CODE TESTS RESULT OUT OF REFERENCE UNITS RANGE LAB L501.8820 5.0-15.0 ug/mL High VANCO, TROUGH 19.4 Result Comment: VANCOMYCIN STANDARED DRUG THERAPY TROUGH LEVEL: 5.0 - 15.0 mg/L VANCOMYCIN HIGH INTENSITY THERAPY TROUGH LEVEL: 15.0 - 20.0 mg/L High Intensity therapy recommended for serious life threatening infections include: - Meningitis -Endocarditis -Pneumonia (Ventilator/Healtcare Associated) -Sepsis PLEASE CONTACT PHARMACY SERVICES (#[id number]) FOR INTERPRETATION OF RESULTS. Performed By: #### L501.8820 #### [facility] [address] [place], [address] EMERGENCY DEPARTMENT Observed: 07/17/2017 Status: F Source: HAN SUMMARY 6:[address] [facility] REPOSITORY [facility] Medical Records Department [address] [facility] [address] Emergency Department Summary 07/17/17 1130 MR#: [id number] Acct: [id number] Name: CUONG MARSHALL Rep #: [id number] : 1945 72 From: Lucius Nevarez MD PCP: Linus Lindquist DO Status: DEP ER - ER Visit Summary Date of Service: 07/17/17 Chief Complaint: Diarrhea History of Present Illness: The patient is a 72 M chronic history of prior lower back surgery for discectomy. He had a problem with healing wound from that surgery. Developed a infection he was seen by a plastic surgeon and treated at [facility]. 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 He was admitted to [facility] within the last week and discharged. Currently is on PICC line IV antibiotic therapy vancomycin and Zosyn. In the last 2-3 days developed significant watery diarrhea. He denies any vomiting. Denies any fever. He spoke to his ID physician and was sent into the ER. Physical Examination: Well-appearing older male. Vital signs are stable afebrile. He does not look septic or toxic. Is no acute distress. H EENT exam unremarkable. Neck nontender lungs clear to auscultation bilaterally. Heart regular rate and rhythm no murmur. Abdomen soft nontender. Nondistended normal bowel sounds no peritoneal signs. Extremities moving all 4. Neurovascular intact. Back exam is back exam is good he is a wound VAC on the lumbar spine area. It looks dry and clean. I did not take the wound VAC off. There is no surrounding cellulitis. Neurologically he is awake and alert with no focal motor deficits. Test Results: CBC shows a normal white count of 7. H AND H of 7 and 23 which is his baseline chronic anemia. Electrolytes are unremarkable other than a BUN of 33 creatinine 2.4 which again is his baseline chronic renal insufficiency. Normal anion gap. C. difficile was negative. Emergency Department Course and Treatment: Patient's diarrhea C. difficile will be sent. A CBC chemistry. He will be treated with a liter normal saline. Treatment Plan: Repeat exam at 1512 patient is doing well. Remember all the test results. He will be discharged to home. Use Imodium for the diarrhea. Follow-up with his primary care physician if not improving he may need repeat stool testing to rule out C. difficile even though was negative today. Disposition: Discharge Impression: Acute diarrhea secondary to antibiotic therapy for a chronic spine wound. Dehydration Chronic anemia and chronic renal insufficiency This note was generated with [employer] dictation software. It may contain incorrect words, spelling, and punctuation that were not noted in review of the chart prior to signing ED Disposition - Plan for ED Patient: Chief Complaint: Diarrhea Referrals: Linus Lindquist, DO [Primary Care Provider] - What to do if you have Problems For any increased pain, shortness of breath, bleeding, nausea or vomiting, chest pain, or any unexpected problems, contact your Primary Care Provider. Call [facility] ([phone]) or report to the closest Emergency Room. Call 911 if necessary. 07/17/17 1800 <Electronically signed by Lucius Nevarez MD> Date Lucius Nevarez MD Cosigner Signature (If Indicated): Date CC: Linus Lindquist DO DISCHARGE INSTRUCTION Observed: 07/17/2017 Status: F Source: HAN 6:00 PM [facility] REPOSITORY [facility] Medical Records Department [address] [place] [address] Discharge Instruction 07/17/17 1514 MR#: [id number] Acct: [id number] Name: CUONG MARSHALL Rep #: [id number] : 1945 72 From: Lucius Nevarez MD PCP: Linus Lindquist DO Status: DEP ER ED Disposition - Plan for ED Patient: Disposition: Home or Assisted Living Chief Complaint: Diarrhea Instructions: Dehydration Referrals: Linus Lindquist DO [Primary Care Provider] - 3-5 Days if not improving Additional Instructions: Plenty fluids and rest. Imodium as needed for diarrhea. Follow-up your primary care physician if not improving you may need further testing if the diarrhea does not get better. Return to the ER if you are feeling worse. What to do if you have Problems For any increased pain, shortness of breath, bleeding, nausea or vomiting, chest pain, or any unexpected problems, contact your Primary Care Provider. Call [facility] ([phone]) or report to the closest Emergency Room. Call 911 if necessary. 07/17/17 1800 <Electronically signed by Lucius Nevarez MD> Date Lucius Nevarez MD Cosigner Signature (If Indicated): Date CC: Linus Lindquist DO Observed: 07/17/2017 Status: F Source: HAN CDIFF (MOLECULAR) 12:[address] [facility] REPOSITORY Order Date: 07/17/17 Cdiff-Molecular Normal Reference Range = Negative C. Diff DNA Negative- No toxigenic C. Diff DNA Detected NAAT METHOD Testing was performed using nucleic acid amplification Performed By: #### M100.6796 #### [facility] [address], [address] CBC W/DIFF, AUTOMATED Collected: 07/17/2017 Status: C Source: [place] 11:[address] [facility] REPOSITORY TYPE CODE TESTS RESULT OUT OF RANGE REFERENCE UNITS LAB L100.1000 4.4-11.0 K/mm3 Normal WBC 7.0 LAB L100.1200 4.6-6.2 M/mm3 Low RBC 2.38 LAB L100.1300 13.0-16.5 g/dl Low HGB 7.6 LAB L100.1400 40-54 % Low HCT 23.8 LAB L100.1500 80-94 fL High MCV 100.0 LAB L100.1600 27.0-32.0 pg Normal MCH 31.9 LAB L100.1700 32-36 g/gl Low MCHC 31.9 LAB L100.1810 11.6-14.6 % High RDW CV 16.2 LAB L100.1820 35.1-43.9 fl High RDW SD 55.1 LAB L100.1900 150-450 K/mm3 High PLT 478 LAB L100.2000 6.2-12.0 fl Normal MPV 8.6 LAB L100.2100 47-70 % Low NEUT% 30.8 LAB L100.2200 19-41 % Normal LY% 19.3 LAB L100.2300 0-10 % High MONO% 13.8 LAB L100.2400 0-5 % High EO% 35.0 LAB L100.2500 0-1 % Normal BASO% 1.0 LAB L100.2550 0.0-0.9 % Normal IM GRAN % 0.100 Result Comment: IG% - Immature Granulocytes (promyelocytes, myelocytes and metamyelocytes) > 1% indicates that a LEFT SHIFT is Present. LAB L100.2620 2.0-7.7 X10 3/uL Normal Absolute Neut 2.2 LAB L100.2720 0.83-4.51 X10 3/ul Normal Absolute Lymph 1.35 LAB L100.4500 Normal SMEAR COMMENT SCANNED Result Comment: INCREASED EOSINOPHILS NOTED LAB L100.5500 ADEQ PLT EST Normal ADEQUATE LAB L100.7600 HYPOCHROMASIA 2+ Normal LAB L100.9900 PATH REV Normal Reviewed Result Comment: Macrocytic anemia. Thrombocytosis. Clinical correlation necessary. Tone Cleveland M.D. 07/18/17 AMENDED REPORT 07/18/17 1454 PATH REV previously reported as: September james Performed By: #### L100.0100 #### [facility] [address] [facility] [place], [address] BASIC METABOLIC Collected: 07/17/2017 Status: F Source: [place] PROFILE (BMP) 11:[address] [facility] REPOSITORY TYPE CODE TESTS RESULT OUT OF RANGE REFERENCE UNITS LAB L501.0100 74-106 mg/dL Normal GLU 80 Result Comment: Please note revised GLUCOSE reference range effective 2017. LAB L501.1000 7-18 mg/dL High BUN 33 LAB L501.1100 0.70-1.30 mg/dL High CREAT,SERUM 2.41 Result Comment: The validity of the calculated GFR AND GFRAA in patients over 70 years has not been determined. Clinical correlation is essential. LAB L501.1110 >60 mL/min Low EST GFR 28 Result Comment: Non- GFR Calc LAB L501.1115 >60 mL/min Low EST GFR - AA 34 Result Comment: GFR Calc LAB L501.1255 ml/min Normal Estimated CRCL 26.41 LAB L501.1300 10-20 RATIO Normal BUN/CRE 13.7 LAB L501.2200 8.5-10 mg/dL Normal .1 CA 8.6 LAB L501.5300 136-14 mmol/L Normal 5 NA 140 LAB L501.5600 3.5-5. mmol/L Normal 1 K 4.1 LAB L501.5900 98-107 mmol/L Normal CL 107 LAB L501.6100 21.0-3 mmol/L Normal 2.0 CO2 22.0 LAB L501.6200 5-15 Normal GAP 11 Performed By: #### L500.2500 #### [facility] [address] [place], [address] CBC-COMPLETE BLOOD CNT Collected: 07/16/2017 Status: F Source: HAN NO DIFF 5:[address] [facility] REPOSITORY TYPE CODE TESTS RESULT OUT OF RANGE REFERENCE UNITS LAB L100.1000 4.4-11.0 K/mm3 Normal WBC 6.1 LAB L100.1200 4.6-6.2 M/mm3 Low RBC 2.39 LAB L100.1300 13.0-16.5 g/dl Low HGB 7.5 LAB L100.1400 40-54 % Low HCT 23.5 LAB L100.1500 80-94 fL High MCV 98.3 LAB L100.1600 27.0-32.0 pg Normal MCH 31.4 LAB L100.1700 32-36 g/gl Low MCHC 31.9 LAB L100.1810 11.6-14.6 % High RDW CV 16.0 LAB L100.1820 35.1-43.9 fl High RDW SD 56.7 LAB L100.1900 150-450 K/mm3 High PLT 469 LAB L100.2000 6.2-12.0 fl Normal MPV 9.0 Performed By: #### L100.0500, L101.9900 #### [facility] [address] [place], [place], [address] ERYTHROCYTE SED RATE Collected: 07/16/2017 Status: F Source: HAN 5:[address] [facility] REPOSITORY TYPE CODE TESTS RESULT OUT OF RANGE REFERENCE UNITS LAB L102.0000 0-20 mm/hr High SED RATE 95 Performed By: #### L100.0500, L101.9900 #### [facility] [address] [place], [place], [address] BASIC METABOLIC Collected: 07/16/2017 Status: F Source: H[place] PROFILE (BMP) 5:[address] [facility] REPOSITORY TYPE CODE TESTS RESULT OUT OF RANGE REFERENCE UNITS LAB L501.0100 74-106 mg/dL Normal GLU 80 Result Comment: Please note revised GLUCOSE reference range effective 2017. LAB L501.1000 7-18 mg/dL High BUN 37 LAB L501.1100 0.70-1.30 mg/dL High CREAT,SERUM 2.49 Result Comment: The validity of the calculated GFR AND GFRAA in patients over 70 years has not been determined. Clinical correlation is essential. LAB L501.1110 >60 mL/min Low EST GFR 27 Result Comment: Non- GFR Calc LAB L501.1115 >60 mL/min Low EST GFR - AA 33 Result Comment: GFR Calc LAB L501.1300 10-20 RATIO Normal BUN/CRE 14.9 LAB L501.2200 8.5-10.1 mg/dL CA Normal 8.6 LAB L501.5300 136-145 mmol/L NA Normal 140 LAB L501.5600 3.5-5.1 mmol/L K Normal 3.8 LAB L501.5900 98-107 mmol/L High CL 108 LAB L501.6100 21.0-32.0 mmol/L Normal CO2 22.0 LAB L501.6200 5-15 Normal GAP 10 Performed By: #### L500.2500 #### [facility] [address] [place], [place], [address] VANCOMYCIN, TROUGH Collected: 07/16/2017 Status: F Source: HAN LEVEL 5:[address] [facility] REPOSITORY Order Comment: Time Medication is to be Given? 1745 TYPE CODE TESTS RESULT OUT OF REFERENCE UNITS RANGE LAB L501.8820 5.0-15.0 ug/mL High VANCO, TROUGH 21.5 Result Comment: VANCOMYCIN STANDARED DRUG THERAPY TROUGH LEVEL: 5.0 - 15.0 mg/L VANCOMYCIN HIGH INTENSITY THERAPY TROUGH LEVEL: 15.0 - 20.0 mg/L High Intensity therapy recommended for serious life threatening infections include: - Meningitis -Endocarditis -Pneumonia (Ventilator/Healtcare Associated) -Sepsis PLEASE CONTACT PHARMACY SERVICES (#[id number]) FOR INTERPRETATION OF RESULTS. Performed By: #### L501.8820 #### [facility] [address] [place], [address] BASIC METABOLIC Collected: 07/12/2017 Status: F Source: HAN PROFILE (BMP) 11:[address] [facility] REPOSITORY Order Comment: Comments: PLEASE DRAW BMP WITH VANCO TROUGH ON 07/12/17 THANKS TYPE CODE TESTS RESULT OUT OF RANGE REFERENCE UNITS LAB L501.0100 74-106 mg/dL High GLU 134 Result Comment: Fasting Glucose result greater than or equal to 126 mg/dL suggests DIABETES MELLITUS per A.D.A. criteria. Please note revised GLUCOSE reference range effective 2017. LAB L501.1000 7-18 mg/dL High BUN 49 LAB L501.1100 0.70-1.30 mg/dL High CREAT,SERUM 2.38 Result Comment: The validity of the calculated GFR AND GFRAA in patients over 70 years has not been determined. Clinical correlation is essential. LAB L501.1110 >60 mL/min Low EST GFR 29 Result Comment: Non- GFR Calc LAB L501.1115 >60 mL/min Low EST GFR - AA 35 Result Comment: GFR Calc LAB L501.1255 ml/min Normal Estimated CRCL 26.74 LAB L501.1300 10-20 RATIO High BUN/CRE 20.6 LAB L501.2200 8.5-10 mg/dL Normal .1 CA 8.7 LAB L501.5300 136-14 mmol/L Normal 5 NA 136 LAB L501.5600 3.5-5. mmol/L Normal 1 K 3.9 LAB L501.5900 98-107 mmol/L Normal CL 105 LAB L501.6100 21.0-3 mmol/L Normal 2.0 CO2 23.0 LAB L501.6200 5-15 Normal GAP 8 Performed By: #### L500.2500 #### [facility] [address] [place], [place], [address] VANCOMYCIN, RANDOM Collected: 07/12/2017 Status: F Source: HAN LEVEL 11:[address] [facility] REPOSITORY TYPE CODE TESTS RESULT OUT OF REFERENCE UNITS RANGE LAB L501.8850 0.0-15.0 ug/mL High VANCO, RANDOM 20.0 Result Comment: VANCOMYCIN STANDARD DRUG THERAPY: CRITICAL VALUE IS > 15.0 mg/L VANCOMYCIN HIGH INTENSITY THERAPY: CRITICAL VALUE IS > 20.0 mg/L PLEASE CONTACT PHARMACY SERVICES (#[id number]) FOR INTERPRETATION OF RESULTS. THIS RESULT DOES NOT REPRESENT A PEAK OR TROUGH LEVEL FOR THIS DRUG. Performed By: #### L501.8850 #### [facility] [address] [place], [place], [address] DISCHARGE SUMMARY Observed: 07/12/2017 Status: F Source: HAN 8:[address] [facility] REPOSITORY [facility] Medical Records Department [address] [place] [address] Discharge Summary 07/12/17817 MR#: [id number] Acct: [id number] Name: CUONG MARSHALL Rep #: [id number] : 1945 72 From: Frank Olmedo MD PCP: Linus Lindquist DO Status: ADM IN Y Location: [place] [address] Discharge Date and Diagnosis - Problem List Patient Problems: Active and Suspected Problems PSVT (paroxysmal supraventricular tachycardia) (Acute) Acute on chronic systolic heart failure (Acute) Delirium (Acute) Date of Admission: 07/08/17 Date of Discharge: 07/12/17 - Primary Discharge Diagnosis Active and Suspected Problems PSVT (paroxysmal supraventricular tachycardia) (Acute) Acute on chronic systolic heart failure (Acute) Delirium (Acute) - Secondary Discharge Diagnosis Chronic Problems Stage 4 decubitus ulcer (Chronic) Pulmonary embolism (Chronic) Lymphedema (Chronic) Chronic kidney disease (Chronic) Non-Hodgkin lymphoma (Chronic) 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 radiation lumbar back for treatment of lymphoma 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) nonhealing ulcer lumbar back area Open wound of lower back (Chronic) with muscle and bone exposed s/p surgical debridement of abscess s/p lumbar spine surgery Chronic ulcer of right leg with fat layer exposed (Chronic) Lumbar disc disease (Chronic) Edema of both legs (Chronic) Leg swelling (Chronic) History of diverticulitis (Chronic) Hyperlipidemia (Chronic) Back pain at L4-L5 level (Chronic) History of non-Hodgkin's lymphoma (Chronic) Hypertension (Chronic) Shortness of breath (Chronic) Hypoxia (Chronic) History of atrial fibrillation (Chronic) Surgical wound dehiscence (Chronic) Renal insufficiency (Chronic) Soft tissue radionecrosis (Chronic) Ulcer of left heel and midfoot with fat layer exposed (Chronic) Decubitus ulcer, heel, right, unstageable (Chronic) Peripheral vascular disease (Chronic) Edema, lower extremity (Chronic) Malnutrition (Chronic) Pressure ulcer, back, lower (Chronic) Ulcer of right foot with fat layer exposed (Chronic) Decubitus ulcer of right foot, unstageable (Chronic) Peripheral vascular disease (Chronic) Ulcer of right lower extremity with fat layer exposed (Chronic) Tinea unguium (Chronic) Generalized weakness (Chronic) Hospital Course and Treatment Imaging Results: 07/05/17 00:34 Diet: Regular Diet Is pt able to select menu?: Yes Labs (Last 48 Hours) Sodium 134 L Potassium 4.3 Chloride 102 Carbon Dioxide 25.0 Anion Gap 7 BUN 53 H Creatinine 2.31 H Consultations 07/05/17 Consult: Onc/Wound/flow match 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 [] Discharge home with spouse, home health along with IV therapy, wound care. Home health ordered. Discharge Diet: No Restrictions Discharge Activity: Return to Normal Activity, Use Walker Weight Bearing Status: Weight bearing as tolerated Call your doctor if you observe: Fever of 101 or Higher, Inability to urinate, Inability to have a bowel movement, Shortness of breath, Chest pain, Uncontrolled pain Home Medications: Medications to take at Discharge Ferrous Gluconate 240 mg PO BID 02/05/16 Folic Acid 1 mg PO DAILY@0800 02/05/16 Magnesium Oxide [Magnesium] 400 mg PO DAILY@0800 02/05/16 Apixaban [Eliquis] 2.5 mg PO BID 03/16/16 Cholecalciferol (Vitamin D3) [Vitamin D3] 1,000 unit PO DAILY@0800 10/14/16 Aspirin 81 mg PO DAILY@0800 07/04/17 Atorvastatin Calcium [Lipitor] 20 mg PO QHS 07/04/17 Cyanocobalamin [Vitamin B12] 1,000 mcg PO DAILY@0800 07/04/17 Gabapentin [Neurontin] 100 mg PO TIDCM 07/04/17 Metoprolol Succinate [Toprol Xl] 12.5 mg PO DAILY 07/04/17 Sodium Hypochlorite [Dakins Solution 0.25% (1/2 Strength)] 1 applic TOPICAL DAILY 07/04/17 Vit C/E/Zn/Coppr/Lutein/Zeaxan [Preservision Areds 2 Softgel] 2 each PO QHS 07/04/17 Zinc Sulfate (50mg elemental) [Zinc Sulfate] 220 mg PO DAILY 07/04/17 Piperacil/Tazobactam [Zosyn] 3.375 gm IV Q8 20 Days #60 ml 07/11/17 Vancomycin/0.9 % Sod Chloride [Vancomycin 1 G/100Ml-0.9% NaCl] 1 gm IV Q48H 20 Days #10 plast..bag 07/11/17 0.9% Saline Lock 10 ml IV UD PRN syringe 07/12/17 Acetaminophen [Tylenol] 1,000 mg PO Q8H PRN tablet 07/12/17 HydromorphONE [Dilaudid] 8 mg PO Q2H PRN #60 tablet 07/12/17 Lactobacillus Acidophilus [Acidophilus] 1 tab PO BID #60 tab 07/12/17 Melatonin 3 mg PO QHS #30 tab 07/12/17 Mineral Oil/Petrolatum,White [Eucerin] 1 applic TOPICAL BID PRN PRN jar 07/12/17 Polyethylene Glycol 3350 [Miralax] 17 gm PO DAILY #30 packet 07/12/17 Senna/Docusate Sodium [Senokot-S] 2 tab PO BID #120 tab 07/12/17 Sodium Chloride 0.65% [Kimball Nasal [place]] 2 spray NASAL BID PRN PRN spray.btl 07/12/17 Following Prescrptions Were Given to Patient: HydromorphONE [Dilaudid] 8 mg PO Q2H PRN #60 tablet PRN Reason: Severe Pain (6-10/10) Melatonin 3 mg PO QHS #30 tab Piperacil/Tazobactam [Zosyn] 3.375 gm IV Q8 20 Days #60 ml Polyethylene Glycol 3350 [Miralax] 17 gm PO DAILY #30 packet Vancomycin/0.9 % Sod Chloride [Vancomycin 1 G/100Ml-0.9% NaCl] 1 gm IV Q48H 20 Days #10 plast..bag Lactobacillus Acidophilus [Acidophilus] 1 tab PO BID #60 tab Senna/Docusate Sodium [Senokot-S] 2 tab PO BID #120 tab Primary Care Physician: Linus Lindquist DO [Primary Care Provider] - Please follow up with your Primary Care Physician in: 1 week. Please Follow Up With: Irene Warner CNP When: 2 weeks. Please Follow Up With: Bre Hall When: gonzález appyenny w/ Dr Humphrey Please Follow Up With: Xander Humphrey When: gonzález grossman w/ Bre Hall Please Follow Up With: Micky Mauro MD When: 2 weeks. Please Follow Up With: Mathieu Nolan When: 2 weeks. Please Follow Up With: [facility] Disposition: Home with Home Health Minutes spent on discharge:: 35 Patient Condition:: Poor Meaningful Use Info Meaningful Use Diagnoses (Choose all that apply): None applicable 07/12/17819 <Electronically signed by Frank Olmedo MD> Date Frank Olmedo MD Cosigner Signature (if applicable): Date CC: Linus Lindquist DO; Frank Olmedo MD Signed HOME HEALTH PROGRESS Observed: 07/12/2017 Status: F Source: [place] NOTE 8:[address] [facility] REPOSITORY [facility] Medical Records Department [address] [place] [address] Home Health Progress Note [id number] Encounter Encounter Date: 07/12/17818 MR#: [id number] Acct: [id number] Name: CUONG MARSHALL Rep #: [id number] : 1945 72 From: Frank Olmedo MD PCP: Linus Lindquist DO Status: ADM IN Location: [place] [address] Home Health Note - Plan Overview of reason of hospitalization: The patient is a 72 year old Male with below past medical history hospitalized for sepsis, secondary to back wound, epidural abscess, complicated by PSVT requiring successful cardioversion, NSTEMI secondary to demand ischemia, transferred to [facility] for wound care, admitted to TCU for rehabilitation, strengthening, wound care, intravenous antibiotics, prior to discharge home. [] Discharge home with spouse, home health along with IV therapy, wound care. Home health ordered. Problems: Patient was seen for PSVT (paroxysmal supraventricular tachycardia) (Acute) Stage 4 decubitus ulcer (Chronic) Acute on chronic systolic heart failure (Acute) Pulmonary embolism (Chronic) Delirium (Acute) Lymphedema (Chronic) Chronic kidney disease (Chronic) Non-Hodgkin lymphoma (Chronic) Complete List of Medical Problems PSVT (paroxysmal supraventricular tachycardia) (Acute) Stage 4 decubitus ulcer (Chronic) Acute on chronic systolic heart failure (Acute) Pulmonary embolism (Chronic) Delirium (Acute) Lymphedema (Chronic) Chronic kidney disease (Chronic) Non-Hodgkin lymphoma (Chronic) Epidural abscess (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) Altered mental status, unspecified (Acute) A-fib (Acute) Sepsis (Acute) Severe sepsis (Acute) wound sepsis of previous wound (Acute) Bacteremia (Acute) Right hip pain (Acute) Open wound of lower back (Chronic) Nonhealing surgical wound (Acute) Chronic ulcer of right leg with fat layer exposed (Chronic) Lumbar disc disease (Chronic) Edema of both legs (Chronic) Leg swelling (Chronic) History of diverticulitis (Chronic) Hyperlipidemia (Chronic) Back pain at L4-L5 level (Chronic) History of non-Hodgkin's lymphoma (Chronic) Hypertension (Chronic) Shortness of breath (Chronic) Hypoxia (Chronic) History of atrial fibrillation (Chronic) Hemorrhage of tongue (Acute) Surgical wound dehiscence (Chronic) Renal insufficiency (Chronic) Soft tissue radionecrosis (Chronic) Ulcer of left heel and midfoot with fat layer exposed (Chronic) Decubitus ulcer, heel, right, unstageable (Chronic) Peripheral vascular disease (Chronic) Edema, lower extremity (Chronic) Malnutrition (Chronic) Pressure ulcer, back, lower (Chronic) Ulcer of right foot with fat layer exposed (Chronic) Decubitus ulcer of right foot, unstageable (Chronic) Peripheral vascular disease (Chronic) Ulcer of right lower extremity with fat layer exposed (Chronic) Tinea unguium (Chronic) Confusion (Acute) Generalized weakness (Chronic) Acute kidney injury superimposed on chronic kidney disease (Acute) - Requirements and Reasons Disciplines Needed/Ordered: Custodial, Physical Therapy Reason for Disciplines: Disease Specific Monitoring/education, Medication Management/Knowledge Deficit, Wound Care, Infusion Therapy, Labs for Short Term Therapeutic Monitoring, Gait Training, Stair Training, Fall Prevention, Home Safety/Equipment Instruction, Balance and/or Posture Training, Transfer Training Related To: Limited/Poor Endurance, Shortness of Breath with Activity, Physical Impairments, Unsteady Gait/Balance, Fall Risk Patient is unable to leave the home: Without Aid of Supportive Devices (crutches, cane, wheelchair, walker), Without the assistance of another person - Additional Disciplines Additional Disciplines Needed/Ordered: Occupational Therapy 07/12/17 0820 <Electronically signed by Frank Olmedo MD> Date Frank Olmedo MD Cosigner Signature (if indicated): Date CC: Signed DISCHARGE INSTRUCTION Observed: 07/12/2017 Status: F Source: [place] 8:[address] [facility] REPOSITORY [facility] Medical Records Department [address] [place] [address] Instructions for Home/Discharge Instructions 07/12/17814 MR#: [id number] Acct: [id number] Name: CUONG MARSHALL Rep #: [id number] : 1945 72 From: Frank Olmedo MD PCP: Linus Lindquist DO Status: ADM IN - Discharge Diagnoses Current Active Problems: Current Active and Chronic Problems PSVT (paroxysmal supraventricular tachycardia) (Acute) Stage 4 decubitus ulcer (Chronic) Acute on chronic systolic heart failure (Acute) Pulmonary embolism (Chronic) Delirium (Acute) Lymphedema (Chronic) Chronic kidney disease (Chronic) Non-Hodgkin lymphoma (Chronic) You will use the following diet at home:: No restrictions, Regular Your food should be the consistency of: Regular Your liquids should be the consistency of: Regular/Thin Discharge Activity: Return to Normal Activity, Use Walker Weight Bearing Status: Weight bearing as tolerated Call your doctor if you observe: Fever of 101 or Higher, Inability to urinate, Inability to have a bowel movement, Shortness of breath, Chest pain, Uncontrolled pain Allergies/Adverse Reactions: Allergies chlorthalidone Allergy (Verified 07/04/17 23:00) Unknown ramipril [From Altace] Allergy (Verified 07/04/17 23:00) Unknown sulfamethoxazole [From Bactrim] Allergy (Verified 06/21/17 08:58) Other trazodone Allergy (Verified 07/04/17 23:00) Unknown trimethoprim [From Bactrim] Allergy (Verified 06/21/17 08:58) Other prednisone Adverse Reaction (Verified 06/21/17 08:58) Swelling Medications to take at Discharge Ferrous Gluconate 240 mg PO BID 02/05/16 Folic Acid 1 mg PO DAILY@0800 02/05/16 Magnesium Oxide [Magnesium] 400 mg PO DAILY@0800 02/05/16 Apixaban [Eliquis] 2.5 mg PO BID 03/16/16 Cholecalciferol (Vitamin D3) [Vitamin D3] 1,000 unit PO DAILY@0800 10/14/16 Aspirin 81 mg PO DAILY@0800 07/04/17 Atorvastatin Calcium [Lipitor] 20 mg PO QHS 07/04/17 Cyanocobalamin [Vitamin B12] 1,000 mcg PO DAILY@0800 07/04/17 Gabapentin [Neurontin] 100 mg PO TIDCM 07/04/17 Metoprolol Succinate [Toprol Xl] 12.5 mg PO DAILY 07/04/17 Sodium Hypochlorite [Dakins Solution 0.25% (1/2 Strength)] 1 applic TOPICAL DAILY 07/04/17 Vit C/E/Zn/Coppr/Lutein/Zeaxan [Preservision Areds 2 Softgel] 2 each PO QHS 07/04/17 Zinc Sulfate (50mg elemental) [Zinc Sulfate] 220 mg PO DAILY 07/04/17 Piperacil/Tazobactam [Zosyn] 3.375 gm IV Q8 20 Days #60 ml 07/11/17 Vancomycin/0.9 % Sod Chloride [Vancomycin 1 G/100Ml-0.9% NaCl] 1 gm IV Q48H 20 Days #10 plast..bag 07/11/17 0.9% Saline Lock 10 ml IV UD PRN syringe 07/12/17 Acetaminophen [Tylenol] 1,000 mg PO Q8H PRN tablet 07/12/17 HydromorphONE [Dilaudid] 8 mg PO Q2H PRN #60 tablet 07/12/17 Lactobacillus Acidophilus [Acidophilus] 1 tab PO BID #60 tab 07/12/17 Melatonin 3 mg PO QHS #30 tab 07/12/17 Mineral Oil/Petrolatum,White [Eucerin] 1 applic TOPICAL BID PRN PRN jar 07/12/17 Polyethylene Glycol 3350 [Miralax] 17 gm PO DAILY #30 packet 07/12/17 Senna/Docusate Sodium [Senokot-S] 2 tab PO BID #120 tab 07/12/17 Sodium Chloride 0.65% [Kimball Nasal [place]] 2 spray NASAL BID PRN PRN spray.btl 07/12/17 The following prescriptions were given: HydromorphONE [Dilaudid] 8 mg PO Q2H PRN #60 tablet PRN Reason: Severe Pain (-02/12) Melatonin 3 mg PO QHS #30 tab Piperacil/Tazobactam [Zosyn] 3.375 gm IV Q8 20 Days #60 ml Polyethylene Glycol 3350 [Miralax] 17 gm PO DAILY #30 packet Vancomycin/0.9 % Sod Chloride [Vancomycin 1 G/100Ml-0.9% NaCl] 1 gm IV Q48H 20 Days #10 plast..bag Lactobacillus Acidophilus [Acidophilus] 1 tab PO BID #60 tab Senna/Docusate Sodium [Senokot-S] 2 tab PO BID #120 tab Primary Care Physician: Linus Lindquist DO [Primary Care Provider] - Please follow up with your Primary Care Physician in: 1 week. Please Follow Up With: Irene Warner CNP When: 2 weeks. Please Follow Up With: Bre Hall When: gonzález appyenny w/ Dr Humphrey Please Follow Up With: Xander Humphrey When: gonzález appyenny w/ Bre Hall Please Follow Up With: Micky Mauro MD When: 2 weeks. Please Follow Up With: Mathieu Nolan When: 2 weeks. Please Follow Up With: [facility] Proposed Discharge Date: 07/12/17 07/12/17817 <Electronically signed by Frank Olmedo MD> Date Frank Olmedo MD CC: Linus Lindquist DO; Dimas Major MD CONSULTATION Observed: 07/11/2017 Status: F Source: HAN 11:[address] [facility] REPOSITORY [facility] Medical Records Department [address] [place] [address] Consultation 07/11/17 1121 MR#: [id number] Acct: [id number] Name: CUONG MARSHALL Rep #: [id number] : 1945 72 From: Dimas Major MD PCP: Linus Lindquist DO Status: ADM IN Y Location: TCU TC3-1 ADDENDUM by Dimas Major MD on 07/11/17 at 1129 Prior cxs from [facility] were (+) for pasteurella, finegoldia, s. viridans, MSSA/MRSA, and diphtheroids. 07/11/17 1129 <Electronically signed by Dimas Major MD> Date Dimas Major MD cc: Linus Lindquist DO; Dimas Major MD * Signed Problem List (1) Bacteremia Status: Acute Reason for Consult: bacteremia Consulted by: Dr. 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 At [facility], repeat imaging showed improvement in collection, picc placed, and transferred to TCU on iv vanc/zosyn. ID at [facility] was Dr. Gerardo. Plan was for several weeks of iv abx, repeat MRI prior to stopping medication to gauge final duration. Pt reports pain is well controlled, working well with therapy, no fever, no issues with picc, mild loose stool. He does not want to have to travel back to [place] for follow-up appts and wants to continue iv abx at home. Full ROS performed and neg except as noted above. 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) nonhealing ulcer lumbar back area Open wound of lower back (Chronic) with muscle and bone exposed s/p surgical debridement of abscess s/p lumbar spine surgery Chronic ulcer of right leg with fat layer exposed (Chronic) Lumbar disc disease (Chronic) Edema of both legs (Chronic) Leg swelling (Chronic) History of diverticulitis (Chronic) Hyperlipidemia (Chronic) Back pain at L4-L5 level (Chronic) History of non-Hodgkin's lymphoma (Chronic) Hypertension (Chronic) Shortness of breath (Chronic) Hypoxia (Chronic) History of atrial fibrillation (Chronic) Surgical wound dehiscence (Chronic) Renal insufficiency (Chronic) Soft tissue radionecrosis (Chronic) Ulcer of left heel and midfoot with fat layer exposed (Chronic) Decubitus ulcer, heel, right, unstageable (Chronic) Peripheral vascular disease (Chronic) Edema, lower extremity (Chronic) Malnutrition (Chronic) Pressure ulcer, back, lower (Chronic) Ulcer of right foot with fat layer exposed (Chronic) Decubitus ulcer of right foot, unstageable (Chronic) Peripheral vascular disease (Chronic) Ulcer of right lower extremity with fat layer exposed (Chronic) Tinea unguium (Chronic) Generalized weakness (Chronic) Allergies/Adverse Reactions: Allergies chlorthalidone Allergy (Verified 07/04/17 23:00) Unknown ramipril [From Altace] Allergy (Verified 07/04/17 23:00) Unknown sulfamethoxazole [From Bactrim] Allergy (Verified 06/21/17 08:58) Other trazodone Allergy (Verified 07/04/17 23:00) Unknown trimethoprim [From Bactrim] Allergy (Verified 06/21/17 08:58) Other prednisone Adverse Reaction (Verified 06/21/17 08:58) Swelling Home Medications: Ambulatory Orders Medication Instructions Recorded Ferrous Gluconate 240 mg PO BID 02/05/16 Folic Acid 1 mg PO DAILY@0800 02/05/16 - Social History SMOKING STATUS:: Former smoker Vital Signs Temp Pulse Resp BP Pulse Ox 98.2 F 79 18 110/69 97 07/10/17 16:00 07/11/17 05:41 07/10/17 16:00 07/11/17 05:41 07/10/17 16:00 Oxygen Delivery Method Room Air Weight: 81.25 kg Body Mass Index (BMI) 24.3 Microbiology Past 72 Hours 07/05/17 17:35 Urine Culture - Final Urine, Clean Catch Culture exhibits no growth. Laboratory Tests Past 24 Hrs Sodium 134 L Potassium 4.3 Chloride 102 Carbon Dioxide 25.0 Anion Gap 7 BUN 53 H Creatinine 2.31 H - Other Studies Radiology: [] reviewed Other Studies: [] Route of nutrition/ use of supplements: [] Nutritional Intake: [] IV Site: [] Garcia Catheter: [] - Physical Exam General: Alert, Oriented x3, Cooperative, No apparent distress HEENT: Atraumatic, PERRLA, EOMI Neck: Supple, No Nodes Lungs: Clear to auscultation, Normal air movement Cardiovascular: Regular rate, Regular Rhythm, No murmurs Abdomen: Bowel Sounds Present, Soft, Non Tender, Non-Distended Extremities: No edema Skin: Ulcer/ Wound - wound vac in place, reviewed photos IV Site: PICC, without redness Musculoskeletal: No Tenderness to Palpation of Joints or Extremities Neurological: Cranial nerves II-XII grossly intact - Assessment/Plan Antibiotics: [] Assessment/Plan: [] Active and Suspected Problems PSVT (paroxysmal supraventricular tachycardia) (Acute) Acute on chronic systolic heart failure (Acute) Delirium (Acute) 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 Doing well on iv vanc/zosyn. Plan is for discharge home tomorrow on iv vanc 1gm q48 and iv zosyn 3.375gm q8h with tentative stop date 07/31/17. Will need repeat L-spine MRI with contrast on/after 07/24/17, as iv abx will need to be continued until abscess is resolved. Weekly bmp, cbc, vanc trough, and esr while on iv abx. ID follow-up at wound care center after MRI is done and prior to stopping iv abx. Thank you, will follow, d/w counseling case manager and nursing. Rx written for labs, abx, and MRI. 07/11/17 1128 <Electronically signed by Dimas Major MD> Date Dimas Major MD Cosigner Signature (if applicable): Date CC: Linus Lindquist DO; Dimas Major MD Signed BASIC METABOLIC Collected: 07/11/2017 Status: F Source: [place] PROFILE (BMP) 5:[address] [facility] REPOSITORY Order Comment: SPECIMEN OBTAINED FROM LINE DRAW TYPE CODE TESTS RESULT OUT OF RANGE REFERENCE UNITS LAB L501.0100 74-106 mg/dL Normal GLU 89 Result Comment: Please note revised GLUCOSE reference range effective 2017. LAB L501.1000 7-18 mg/dL High BUN 53 LAB L501.1100 0.70-1.30 mg/dL High CREAT,SERUM 2.31 Result Comment: The validity of the calculated GFR AND GFRAA in patients over 70 years has not been determined. Clinical correlation is essential. LAB L501.1110 >60 mL/min Low EST GFR 30 Result Comment: Non- GFR Calc LAB L501.1115 >60 mL/min Low EST GFR - AA 36 Result Comment: GFR Calc LAB L501.1255 ml/min Normal Estimated CRCL 27.55 LAB L501.1300 10-20 RATIO High BUN/CRE 22.9 LAB L501.2200 8.5-10 mg/dL Normal .1 CA 8.9 LAB L501.5300 136-14 mmol/L Low 5 NA 134 LAB L501.5600 3.5-5. mmol/L Normal 1 K 4.3 LAB L501.5900 98-107 mmol/L Normal CL 102 LAB L501.6100 21.0-3 mmol/L Normal 2.0 CO2 25.0 LAB L501.6200 5-15 Normal GAP 7 Performed By: #### L500.2500 #### [facility] [address] [place], [address] VANCOMYCIN, RANDOM Collected: 07/10/2017 Status: F Source: [place] LEVEL 1:[address] [facility] REPOSITORY TYPE CODE TESTS RESULT OUT OF REFERENCE UNITS RANGE LAB L501.8850 0.0-15.0 ug/mL High VANCO, RANDOM 19.2 Result Comment: VANCOMYCIN STANDARD DRUG THERAPY: CRITICAL VALUE IS > 15.0 mg/L VANCOMYCIN HIGH INTENSITY THERAPY: CRITICAL VALUE IS > 20.0 mg/L PLEASE CONTACT PHARMACY SERVICES (#[id number]) FOR INTERPRETATION OF RESULTS. THIS RESULT DOES NOT REPRESENT A PEAK OR TROUGH LEVEL FOR THIS DRUG. Performed By: #### L501.8850 #### [facility] [address] [place], [address] CBC W/DIFF, AUTOMATED Collected: 07/08/2017 Status: F Source: [place] 12:[address] [facility] REPOSITORY TYPE CODE TESTS RESULT OUT OF RANGE REFERENCE UNITS LAB L100.1000 4.4-11.0 K/mm3 Normal WBC 6.4 LAB L100.1200 4.6-6.2 M/mm3 Low RBC 2.50 LAB L100.1300 13.0-16.5 g/dl Low HGB 7.8 LAB L100.1400 40-54 % Low HCT 24.5 LAB L100.1500 80-94 fL High MCV 98.0 LAB L100.1600 27.0-32.0 pg Normal MCH 31.2 LAB L100.1700 32-36 g/gl Low MCHC 31.8 LAB L100.1810 11.6-14.6 % High RDW CV 15.4 LAB L100.1820 35.1-43.9 fl High RDW SD 55.2 LAB L100.1900 150-450 K/mm3 Normal PLT 387 LAB L100.2000 6.2-12.0 fl Normal MPV 9.4 LAB L100.2100 47-70 % Normal NEUT% 58.7 LAB L100.2200 19-41 % Normal LY% 22.1 LAB L100.2300 0-10 % High MONO% 12.4 LAB L100.2400 0-5 % Normal EO% 4.4 LAB L100.2500 0-1 % High BASO% 2.2 LAB L100.2550 0.0-0.9 % Normal IM GRAN % 0.200 Result Comment: IG% - Immature Granulocytes (promyelocytes, myelocytes and metamyelocytes) > 1% indicates that a LEFT SHIFT is Present. LAB L100.2620 2.0-7.7 X10 3/uL Normal Absolute Neut 3.8 LAB L100.2720 0.83-4.51 X10 3/ul Normal Absolute Lymph 1.41 Performed By: #### L100.0100, L101.9900 #### [facility] [address] [place], [place], [id number] ERYTHROCYTE SED RATE Collected: 07/08/2017 Status: F Source: [place] 12:[address] [facility] REPOSITORY TYPE CODE TESTS RESULT OUT OF RANGE REFERENCE UNITS LAB L102.0000 0-20 mm/hr High SED RATE 81 Performed By: #### L100.0100, L101.9900 #### [facility] [address] [facility] [place], [address] BASIC METABOLIC Collected: 07/08/2017 Status: F Source: [place] PROFILE (BMP) 12:[address] [facility] REPOSITORY TYPE CODE TESTS RESULT OUT OF RANGE REFERENCE UNITS LAB L501.0100 74-106 mg/dL Normal GLU 77 Result Comment: Please note revised GLUCOSE reference range effective 2017. LAB L501.1000 7-18 mg/dL High BUN 50 LAB L501.1100 0.70-1.30 mg/dL High CREAT,SERUM 2.21 Result Comment: The validity of the calculated GFR AND GFRAA in patients over 70 years has not been determined. Clinical correlation is essential. LAB L501.1110 >60 mL/min Low EST GFR 31 Result Comment: Non- GFR Calc LAB L501.1115 >60 mL/min Low EST GFR - AA 38 Result Comment: GFR Calc LAB L501.1255 ml/min Normal Estimated CRCL 28.80 LAB L501.1300 10-20 RATIO High BUN/CRE 22.6 LAB L501.2200 8.5-10 mg/dL Normal .1 CA 8.9 LAB L501.5300 136-14 mmol/L Low 5 NA 134 LAB L501.5600 3.5-5. mmol/L Normal 1 K 4.4 LAB L501.5900 98-107 mmol/L Normal CL 100 LAB L501.6100 21.0-3 mmol/L Normal 2.0 CO2 23.0 LAB L501.6200 5-15 Normal GAP 11 Performed By: #### L500.2500 #### [facility] [address] [place], [place], [id number] VANCOMYCIN, RANDOM Collected: 07/08/2017 Status: F Source: [place] 12:[address] [facility] REPOSITORY TYPE CODE TESTS RESULT OUT OF REFERENCE UNITS RANGE LAB L501.8850 0.0-15.0 ug/mL High VANCO, RANDOM 17.1 Result Comment: VANCOMYCIN STANDARD DRUG THERAPY: CRITICAL VALUE IS > 15.0 mg/L VANCOMYCIN HIGH INTENSITY THERAPY: CRITICAL VALUE IS > 20.0 mg/L PLEASE CONTACT PHARMACY SERVICES (#[id number]) FOR INTERPRETATION OF RESULTS. THIS RESULT DOES NOT REPRESENT A PEAK OR TROUGH LEVEL FOR THIS DRUG. Performed By: #### L501.8850 #### [facility] [address] [facility] [place], [place], [id number] LIVER PROFILE Collected: 07/08/2017 Status: F Source: [place] 12:[address] [facility] REPOSITORY TYPE CODE TESTS RESULT OUT OF RANGE REFERENCE UNITS LAB L501.1500 6.4-8.2 g/dL Normal T PROT 7.8 LAB L501.1800 3.2-5.0 g/dL Low ALB 1.9 LAB L501.1950 2.2-4.2 g/dL High GLOB 5.9 LAB L501.4100 15-37 U/L High AST 46 LAB L501.4305 45-117 U/L High ALK P 206 LAB L501.4405 16-61 U/L Normal ALT 35 Result Comment: Please note revised ALT reference range effective 2017. LAB L501.4600 0.20-1.00 mg/dL Normal T BILI 0.40 LAB L501.4700 0.00-0.30 mg/dL Normal D BILI 0.17 Performed By: #### L500.3400, L501.6710 #### [facility] [address] [place], [place], [id number] CRP Collected: 07/08/2017 Status: F Source: [place] 12:[address] [facility] REPOSITORY TYPE CODE TESTS RESULT OUT OF RANGE REFERENCE UNITS LAB L501.6710 0.0-3.0 mg/L High 53.80 C-REACTIVE PROT Result Comment: C-Reactive Protein (CRP) provides useful information for the diagnosis, therapy and monitoring of inflammatory processes and associated diseases. For the evaluation of Relative Risk for Cardiovascular Disease, a High Sensitivity CRP (HSCRP) should be ordered. Performed By: #### L500.3400, L501.6710 #### [facility] [address] [place], [address] VANCOMYCIN, RANDOM Collected: 07/06/2017 Status: F Source: [place] LEVEL 6:[address] [facility] REPOSITORY TYPE CODE TESTS RESULT OUT OF REFERENCE UNITS RANGE LAB L501.8850 0.0-15.0 ug/mL High VANCO, RANDOM 23.5 Result Comment: VANCOMYCIN STANDARD DRUG THERAPY: CRITICAL VALUE IS > 15.0 mg/L VANCOMYCIN HIGH INTENSITY THERAPY: CRITICAL VALUE IS > 20.0 mg/L PLEASE CONTACT PHARMACY SERVICES (#[id number]) FOR INTERPRETATION OF RESULTS. THIS RESULT DOES NOT REPRESENT A PEAK OR TROUGH LEVEL FOR THIS DRUG. Performed By: #### L501.8850 #### [facility] [address] [place], [place], [address] VANCOMYCIN, RANDOM Collected: 07/05/2017 Status: F Source: [place] LEVEL 6:[address] [facility] REPOSITORY TYPE CODE TESTS RESULT OUT OF REFERENCE UNITS RANGE LAB L501.8850 0.0-15.0 ug/mL High VANCO, RANDOM 26.2 Result Comment: VANCOMYCIN STANDARD DRUG THERAPY: CRITICAL VALUE IS > 15.0 mg/L VANCOMYCIN HIGH INTENSITY THERAPY: CRITICAL VALUE IS > 20.0 mg/L PLEASE CONTACT PHARMACY SERVICES (#[id number]) FOR INTERPRETATION OF RESULTS. THIS RESULT DOES NOT REPRESENT A PEAK OR TROUGH LEVEL FOR THIS DRUG. Performed By: #### L501.8850 #### [facility] [address] [place], [address] URINALYSIS, COMPLETE Collected: 07/05/2017 Status: F Source: [place] 5:[address] [facility] REPOSITORY Order Comment: How was Urine Obtained? CLEAN CATCH TYPE CODE TESTS RESULT OUT OF RANGE REFERENCE UNITS LAB L400.3000 Yellow COLOR Normal Yellow LAB L400.3050 Clear Normal CLARITY Clear LAB L400.3200 Normal mg/dl Normal GLUCOSE, UR Normal LAB L400.3300 Negative mg/dL Normal BILIRUBIN URINE Negative LAB L400.3400 Negative mg/dl Normal KETONE UR Negative LAB L400.3465 1.002-1.030 Normal SP.GR. DIPSTX 1.015 LAB L400.3550 5.0 - 8.0 pH UR Normal 6.0 LAB L400.3600 Negative mg/dl High PROT 30 DIPSTX LAB L400.3700 Normal mg/dl Normal UROBILI Normal LAB L400.3750 Negative Normal NITRITE UR Negative LAB L400.3780 Negative /ul High OCCULT BLOOD-UR 250 LAB L400.3800 Negative /ul High LEUK 25 ESTERASE LAB L400.4050 0-5 /hpf WBC Normal 0-5 SEEN LAB L400.4100 0-5 /hpf Normal RBC-UA 25-50 SEEN LAB L400.4150 0-5 /hpf SQUAM Normal EPI 0-5 SEEN LAB L400.4300 None Seen /hpf 0 Normal BACTERIA SEEN LAB L400.4350 <or=2+ /hpf 0 Normal MUCUS, URINE SEEN LAB L400.5200 None Seen /hpf Normal YEAST-URINE RARE Performed By: #### L400.0001 #### [facility] [address] [place], [address] Observed: 07/05/2017 Status: F Source: [place] CULTURE, URINE 5:[address] [facility] REPOSITORY Urine Culture Culture exhibits no growth. Performed By: #### M100.0650 #### [facility] [address] [place] [address], [address] HISTORY AND PHYSICAL Observed: 07/05/2017 Status: F Source: [place] EXAM 8:[address] [facility] REPOSITORY [facility] Medical Records Department [address] [place] [id number] History and Physical 07/05/17 0748 MR#: [id number] Acct: [id number] Name: CUONG MARSHALL Rep #: [id number] : 1945 72 From: Frank Olmedo MD PCP: Linus Lindquist DO Status: ADM IN Location: [facility] [id number] Problem List (1) PSVT (paroxysmal supraventricular tachycardia) Status: Acute (2) Stage 4 decubitus ulcer Status: Chronic (3) Acute on chronic systolic heart failure Status: Acute (4) Pulmonary embolism Status: Chronic (5) Delirium Status: Acute (6) Lymphedema Status: Chronic (7) Chronic kidney disease Status: Chronic (8) Non-Hodgkin lymphoma Status: Chronic (9) A-fib Status: Acute (10) Sepsis Status: Acute (11) Hyperlipidemia Status: Chronic (12) Hypertension Status: Chronic (13) Shortness of breath Status: Chronic (14) Peripheral vascular disease Status: Chronic (15) Generalized weakness Status: Chronic History of Present Illness Date of Admission: 07/04/17 Chief Complaint: Here for rehabilitation, strengthening, wound care, prior to disposition determination. The patient is a 72 year old Male with below past medical history presented to [facility] Emergency Department 06/21/2017 not doing well. 06/21/2017 CT brain chronic involutional changes of brain, old right thalamic infarct, acute left ethmoid sinus disease. 06/21/2017 EKG sinus tachycardia with premature atrial contractions, right bundle branch block, left anterior fascicular block, bifascicular block, left ventricular hypertrophy with repolarization abnormality. Delirium, bad headache, facial droop. infranodal tachycardia, Adenosine 6MG, then 12MG given. Chest X-ray showed borderline cardiomegaly, congestive heart failure. Troponin 0.26, Lactate 3.0, WBC 15.8. Hemoglobin 12.9, Hematocrit 38.6, Glucose 143, BUN 67, Cr 2.16. Patient cardioverted successfully. IV Lasix given, Cardizem drip started. 06/21/2017 Admit to ICU Zosyn IV, Vanco IV, IV fluids, for sepsis. Eliquis, Cardizem, Metoprolol for dysrhythmia. 06/21/2017 Chest X-ray mild cardiomegaly, pulmonary congestion, right central line. 06/21/2017 Abbey Pina placed right IJ line. 06/21/2017 Echo Severe segmental systolic dysfunction. EF 20%. Right ventricular systolic pressure 41mm HG. 06/21/2017 Dr. Mendes severe sepsis secondary to lumbosacral wound. Atrial fibrillation with RVR. NSTEMI. 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 06/26/2017 Transfer to [facility] for definitive management of epidural abscess per neurosurgery. Dilaudid for severe pain. Atrial fibrillation with RVR treated with amiodarone, Eliquis. Severe sepsis treated with antibiotics, cultures growing pasturella. NSTEMI due to demand ischemia. At [facility], dressing changes done to wound. L5, S1 fluid collection extending to right nerve root, no surgical decompression. 07/04/2017 Admit to TCU for rehabilitation, strengthening, wound care, intravenous antibiotics, disposition determination. 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) nonhealing ulcer lumbar back area Open wound of lower back (Chronic) with muscle and bone exposed s/p surgical debridement of abscess s/p lumbar spine surgery Chronic ulcer of right leg with fat layer exposed (Chronic) Lumbar disc disease (Chronic) Edema of both legs (Chronic) Leg swelling (Chronic) History of diverticulitis (Chronic) Hyperlipidemia (Chronic) Back pain at L4-L5 level (Chronic) History of non-Hodgkin's lymphoma (Chronic) Hypertension (Chronic) Shortness of breath (Chronic) Hypoxia (Chronic) History of atrial fibrillation (Chronic) Surgical wound dehiscence (Chronic) Renal insufficiency (Chronic) Soft tissue radionecrosis (Chronic) Ulcer of left heel and midfoot with fat layer exposed (Chronic) Decubitus ulcer, heel, right, unstageable (Chronic) Peripheral vascular disease (Chronic) Edema, lower extremity (Chronic) Malnutrition (Chronic) Pressure ulcer, back, lower (Chronic) Ulcer of right foot with fat layer exposed (Chronic) Decubitus ulcer of right foot, unstageable (Chronic) Peripheral vascular disease (Chronic) Ulcer of right lower extremity with fat layer exposed (Chronic) Tinea unguium (Chronic) Generalized weakness (Chronic) Allergies chlorthalidone Allergy (Verified 07/04/17 23:00) Unknown ramipril [From Altace] Allergy (Verified 07/04/17 23:00) Unknown sulfamethoxazole [From Bactrim] Allergy (Verified 06/21/17 08:58) Other trazodone Allergy (Verified 07/04/17 23:00) Unknown trimethoprim [From Bactrim] Allergy (Verified 06/21/17 08:58) Other prednisone Adverse Reaction (Verified 06/21/17 08:58) Swelling Home Medications: Ambulatory Orders Medication Instructions Recorded Ferrous Gluconate 240 mg PO BID 02/05/16 Folic Acid 1 mg PO DAILY@0800 02/05/16 Surgical History: colectomy - Partial., - - Splenectomy, Ileostomy reversal, L4-5 discectomy. Wound debridement 03/04/2017, 05/14/2017 at [facility]> Psychiatric History: No pertinent psych hx Lives: Spouse/ Significant Other Smoking Status: Former smoker Tobacco Use: Non-smoker Alcohol: None Drugs: None - *Family History Maternal History Items: Heart Disease Paternal History Items: Diabetes Review of Systems Constitutional: Denies: Chills, Fever, Weight Change HEENT: Denies: Head Aches, Sinus Congestion, Sinus Drainage Cardiovascular: Denies: Chest Pain, Palpitations Respiratory: Denies: Cough, Shortness of breath at rest, Sputum production Gastrointestinal: Denies: Abdominal Pain, Nausea, Vomiting Genitourinary: Denies: Dysuria Musculoskeletal: Denies: Joint Pain, Joint Tenderness Skin: Denies: Rash, Wounds Neurological: Reports: Numbness - Right hip., Tingling - Right hip.. Denies: Focal weakness Psychiatric: Denies: Anxiety, Depression, Homicidal Ideations, Suicidal Ideations Hematologic/ Lymphatic: Denies: Easy Bruising, Easy Bleeding VTE Information - Inpt Only VTE Present on Admission: No VTE Mechan Device Prophylaxis: Knee High KELLY Hose VTE Pharm Prophylaxis ordered?: No Reason prophylaxis not ordered:: Treatment Not Indicated Patient Problems: Active and Suspected Problems PSVT (paroxysmal supraventricular tachycardia) (Acute) Acute on chronic systolic heart failure (Acute) Delirium (Acute) - Physical Exam General: Alert, Oriented x3, Cooperative HEENT: Atraumatic, PERRLA, EOMI, Normocephalic Neck: Supple, No JVD, Negative Carotid Bruits Lungs: Clear to auscultation, Normal air movement Cardiovascular: Regular rate, No murmurs Abdomen: Bowel Sounds Present, Soft, Non Tender Extremities: No edema, Capillary Refill Less than 3 Seconds Skin: Ulcer/ Wound - Stage 4 lumbar wound. Musculoskeletal: No Tenderness to Palpation of Joints or Extremities Neurological: Cranial nerves II-XII grossly intact Psych/Mental Status: Normal Affect, Appropriate Vital Signs Temp Pulse Resp BP Pulse Ox 97.1 F L 99 20 H 158/74 H 97 07/04/17 23:06 07/05/17 05:09 07/04/17 23:06 07/05/17 05:09 07/04/17 23:27 Oxygen Delivery Method Room Air Weight: 72.575 kg Body Mass Index (BMI) 24.3 Laboratory Tests Past 24 Hrs WBC 8.9 RBC 2.80 L Hgb 9.1 L Hct 27.5 L MCV 98.2 H MCH 32.5 H MCHC 33.1 RDW 14.9 H Assessment/Plan Active and Suspected Problems PSVT (paroxysmal supraventricular tachycardia) (Acute) Acute on chronic systolic heart failure (Acute) Delirium (Acute) 72 year old male with below past medical history hospitalized for sepsis, secondary to back wound, epidural abscess, complicated by PSVT requiring successful cardioversion, NSTEMI secondary to demand ischemia, transferred to [facility] for wound care, admitted to TCU for rehabilitation, strengthening, wound care, intravenous antibiotics, prior to disposition determination. * Debility - PT/OT. * Pain - Tylenol 1000MG Q8H PRN mild pain, Dilaudid 8MG Q2H PRN severe pain. * Bowel - Miralax 17GM daily, Senna/colace 2 tablets BID, Dulcolax 10MG DE daily PRN. * Pneumonia vaccination - Administer Prevnar 13 and/or Pneumovax 23 as necessary. * DVT prophylaxis - Not necessary, Eliquis 2.5MG twice daily. * CV prophylaxis - Aspirin 81MG daily. * Atrial fibrillation - Metoprolol succinate 12.5MG daily, Eliquis 2.5MG BID. * Hyperlipidemia - Atorvastatin 20MG QHS. * Vitamin D deficiency - D3 1000IU daily, * Vitamin B12 deficiency - B12 1000MCG daily. * Nutrition - Ensure 120ML 4x/day, MVI daily. * Iron deficiency anemia - Ferrous gluconate 325MG BID. * COPD - Advair 250/50 1 puff BID. * Folate deficiency - Folic Acid 1MG daily. * Neuropathic pain - Increase Gabapentin to 300MG TID. * Hypomagnesemia - Mag Oxide 400MG daily. * Lumbar wound infection - Zosyn 3.375GM IV Q8H, Vancomycin 1.5GM IV Q8H. * Wound - Dakins solution daily, consider wound vac, Tatyana Sullivan following. * Zinc deficiency - Zinc 200MG daily. 07/05/17 0844 <Electronically signed by Frank Olmedo MD> Date Frank Olmedo MD Cosigner Signature: Date (if applicable) CC: Linus Lindquist DO; Frank Olmedo MD Signed BASIC METABOLIC Collected: 07/05/2017 Status: F Source: [place] PROFILE (BMP) 6:[address] [facility] REPOSITORY TYPE CODE TESTS RESULT OUT OF RANGE REFERENCE UNITS LAB L501.0100 74-106 mg/dL Normal GLU 93 Result Comment: Please note revised GLUCOSE reference range effective 2017. LAB L501.1000 7-18 mg/dL High BUN 43 LAB L501.1100 0.70-1.30 mg/dL High CREAT,SERUM 2.11 Result Comment: The validity of the calculated GFR AND GFRAA in patients over 70 years has not been determined. Clinical correlation is essential. LAB L501.1110 >60 mL/min Low EST GFR 33 Result Comment: Non- GFR Calc LAB L501.1115 >60 mL/min Low EST GFR - AA 40 Result Comment: GFR Calc LAB L501.1255 ml/min Normal Estimated CRCL 30.17 LAB L501.1300 10-20 RATIO High BUN/CRE 20.4 LAB L501.2200 8.5-10 mg/dL Normal .1 CA 8.8 LAB L501.5300 136-14 mmol/L Low 5 NA 133 LAB L501.5600 3.5-5. mmol/L Normal 1 K 4.8 LAB L501.5900 98-107 mmol/L Normal CL 101 LAB L501.6100 21.0-3 mmol/L Normal 2.0 CO2 23.0 LAB L501.6200 5-15 Normal GAP 9 Performed By: #### L500.2500 #### [facility] [address] [place], [place], [address] CBC W/DIFF, AUTOMATED Collected: 07/05/2017 Status: F Source: [place] 6:[address] [facility] REPOSITORY TYPE CODE TESTS RESULT OUT OF RANGE REFERENCE UNITS LAB L100.1000 4.4-11.0 K/mm3 Normal WBC 8.9 LAB L100.1200 4.6-6.2 M/mm3 Low RBC 2.80 LAB L100.1300 13.0-16.5 g/dl Low HGB 9.1 LAB L100.1400 40-54 % Low HCT 27.5 LAB L100.1500 80-94 fL High MCV 98.2 LAB L100.1600 27.0-32.0 pg High MCH 32.5 LAB L100.1700 32-36 g/gl Normal MCHC 33.1 LAB L100.1810 11.6-14.6 % High RDW CV 14.9 LAB L100.1820 35.1-43.9 fl High RDW SD 51.1 LAB L100.1900 150-450 K/mm3 Normal PLT 402 LAB L100.2000 6.2-12.0 fl Normal MPV 9.7 LAB L100.2100 47-70 % Normal NEUT% 69.5 LAB L100.2200 19-41 % Low LY% 12.5 LAB L100.2300 0-10 % High MONO% 16.0 LAB L100.2400 0-5 % Normal EO% 0.8 LAB L100.2500 0-1 % High BASO% 1.1 LAB L100.2550 0.0-0.9 % Normal IM GRAN % 0.100 Result Comment: IG% - Immature Granulocytes (promyelocytes, myelocytes and metamyelocytes) > 1% indicates that a LEFT SHIFT is Present. LAB L100.2620 2.0-7.7 X10 3/uL Normal Absolute Neut 6.2 LAB L100.2720 0.83-4.51 X10 3/ul Normal Absolute Lymph 1.11 Performed By: #### L100.0100 #### [facility] [address] [place], [address] VANCOMYCIN, TROUGH Collected: 07/04/2017 Status: F Source: [facility] 9:56 AM [facility] REPOSITORY TYPE CODE TESTS RESULT OUT OF REFERENCE UNITS RANGE LAB VANCTR 10.0-20.0 mcg/mL High 23.0 Vancomycin, Trough Performed By: #### VANCTR #### [facility] [address] [place] [address] [facility] [address] [place] [address] HEMOGRAM (CBC AND Collected: 07/04/2017 Status: F Source: [facility] [place]) 3:54 AM [facility] REPOSITORY TYPE CODE TESTS RESULT OUT OF REFERENCE UNITS RANGE LAB WBC 4.23-9.07 K/uL WBC Count 7.89 LAB RBC 4.63-6.08 M/uL Low RBC Count 2.78 LAB HGB 13.7-17.5 g/dL Low Hemoglobin 8.9 LAB HCT 40.1-51.0 % Low Hematocrit 27.5 LAB MCV 79.0-92.2 fL Mean Cell High Volume 98.9 LAB MCH 25.7-32.2 pg Mean Cell Hgb 32.0 LAB MCHC 32.3-36.5 g/dL Mean Cell Hgb Conc 32.4 LAB RDW 11.6-14.4 % RBC High Distribution 15.5 LAB PLT 163-337 K/uL Platelet Count High 391 LAB MPV 9.4-12.4 fL Mean Platelet Volume 10.1 LAB NRBC 0.0-0.2 /100 WBC NUCLEATED RBC 0.0 Performed By: #### HEMOGC, CHM7, MGO #### [facility] [address] [place] [address] [facility] [address] [place] [address] CHEM 7 Collected: 07/04/2017 Status: F Source: [facility] 3:54 AM [facility] REPOSITORY TYPE CODE TESTS RESULT OUT OF REFERENCE UNITS RANGE LAB BUN 7-22 mg/dL BUN High 47 LAB NA 133-143 mmol/L Low Sodium 130 LAB K 3.5-5.0 mmol/L Potassium 4.3 LAB CL 98-108 mmol/L Chloride 99 LAB CO2 22-30 mmol/L Carbon Dioxide 23 LAB GLUC 70-99 mg/dL Glucose 95 LAB CREA 0.70-1.30 mg/dL High Creatinine 2.09 LAB GAP 7-17 mmol/L Anion Gap 12 LAB BC BUN/CREA Ratio 22 LAB [facility] 278-305 mOsm/kg Osmolality 287 (Calc) LAB GFR >60 mL/min/1.73 Low sqM Est GFR,non 31 [place] Citizen LAB GFRA >60 mL/min/1.73 Low sqM Est GFR, 38 Performed By: #### HEMMAXIMILIAN MÉNDEZ7, MGO #### [facility] [address] [address] MAGNESIUM Collected: 07/04/2017 Status: F Source: [facility] 3:54 AM [facility] REPOSITORY TYPE CODE TESTS RESULT OUT OF REFERENCE UNITS RANGE LAB MG 1.6-2.6 mg/dL Magnesium 2.1 Performed By: #### SHAYNA LOMELI, MGO #### [facility] [address] [address] HEMOGRAM (CBC AND Collected: 07/03/2017 Status: F Source: [facility] [place]) 2:18 AM [facility] REPOSITORY TYPE CODE TESTS RESULT OUT OF REFERENCE UNITS RANGE LAB WBC 4.23-9.07 K/uL WBC Count High 9.65 LAB RBC 4.63-6.08 M/uL Low RBC Count 2.87 LAB HGB 13.7-17.5 g/dL Low Hemoglobin 9.4 LAB HCT 40.1-51.0 % Low Hematocrit 28.1 LAB MCV 79.0-92.2 fL Mean Cell High Volume 97.9 LAB MCH 25.7-32.2 pg Mean Cell Hgb High 32.8 LAB MCHC 32.3-36.5 g/dL Mean Cell Hgb Conc 33.5 LAB RDW 11.6-14.4 % RBC High Distribution 15.5 LAB PLT 163-337 K/uL Platelet Count High 407 LAB MPV 9.4-12.4 fL Mean Platelet Volume 10.4 LAB NRBC 0.0-0.2 /100 WBC NUCLEATED RBC 0.0 Performed By: #### HEMHONEY, JEAN-PIERREM7, MGO #### [facility] [address] [address] [facility] [address] [place] [address] CHEM 7 Collected: 07/03/2017 Status: F Source: [facility] 2:18 AM [facility] REPOSITORY TYPE CODE TESTS RESULT OUT OF REFERENCE UNITS RANGE LAB BUN 7-22 mg/dL BUN High 47 LAB NA 133-143 mmol/L Low Sodium 132 LAB K 3.5-5.0 mmol/L Potassium 4.6 LAB CL 98-108 mmol/L Chloride 100 LAB CO2 22-30 mmol/L Carbon Dioxide 22 LAB GLUC 70-99 mg/dL Glucose 99 LAB CREA 0.70-1.30 mg/dL High Creatinine 2.05 LAB GAP 7-17 mmol/L Anion Gap 15 LAB BC BUN/CREA Ratio 23 LAB [facility] 278-305 mOsm/kg Osmolality 291 (Calc) LAB GFR >60 mL/min/1.73 Low sqM Est GFR,non 32 [place] Citizen LAB GFRA >60 mL/min/1.73 Low sqM Est GFR, 39 Performed By: #### HEMOGC, CHM7, MGO #### [facility] [address] [address] MAGNESIUM Collected: 07/03/2017 Status: F Source: [facility] 2:18 AM [facility] REPOSITORY TYPE CODE TESTS RESULT OUT OF REFERENCE UNITS RANGE LAB MG 1.6-2.6 mg/dL Magnesium 2.0 Performed By: #### HEMOGC, CHM7, MGO #### [facility] [address] [address] HEMOGRAM (CBC AND Collected: 07/02/2017 Status: F Source: [facility] [place]) 3:18 AM [facility] REPOSITORY TYPE CODE TESTS RESULT OUT OF REFERENCE UNITS RANGE LAB WBC 4.23-9.07 K/uL WBC Count 8.54 LAB RBC 4.63-6.08 M/uL Low RBC Count 2.81 LAB HGB 13.7-17.5 g/dL Low Hemoglobin 9.0 LAB HCT 40.1-51.0 % Low Hematocrit 27.8 LAB MCV 79.0-92.2 fL Mean Cell High Volume 98.9 LAB MCH 25.7-32.2 pg Mean Cell Hgb 32.0 LAB MCHC 32.3-36.5 g/dL Mean Cell Hgb Conc 32.4 LAB RDW 11.6-14.4 % RBC High Distribution 15.5 LAB PLT 163-337 K/uL Platelet Count High 382 LAB MPV 9.4-12.4 fL Mean Platelet Volume 10.5 LAB NRBC 0.0-0.2 /100 WBC NUCLEATED RBC 0.0 Performed By: #### HEMJEAN-PIERRE MÉNDEZM7, MGO #### [facility] [id number] [place] [address] [address] [address] CHEM 7 Collected: 07/02/2017 Status: F Source: [facility] 3:18 [facility] REPOSITORY TYPE CODE TESTS RESULT OUT OF REFERENCE UNITS RANGE LAB BUN 7-22 mg/dL BUN High 52 LAB NA 133-143 mmol/L Sodium 134 LAB K 3.5-5.0 mmol/L Potassium 4.2 LAB CL 98-108 mmol/L Chloride 102 LAB CO2 22-30 mmol/L Carbon Dioxide 22 LAB GLUC 70-99 mg/dL Glucose 88 LAB CREA 0.70-1.30 mg/dL High Creatinine 2.19 LAB GAP 7-17 mmol/L Anion Gap 14 LAB BC BUN/CREA Ratio 24 LAB [facility] 278-305 mOsm/kg Osmolality 295 (Calc) LAB GFR >60 mL/min/1.73 Low sqM Est GFR,non 30 [place] Citizen LAB GFRA >60 mL/min/1.73 Low sqM Est GFR, 36 Performed By: #### HEMHONEY, JEAN-PIERREM7, MGO #### [facility] [id number] [place] [address] [address] MAGNESIUM Collected: 07/02/2017 Status: F Source: [facility] 3:18 [facility] REPOSITORY TYPE CODE TESTS RESULT OUT OF REFERENCE UNITS RANGE LAB MG 1.6-2.6 mg/dL Magnesium 2.1 Performed By: #### HEMHONEY, CHM7, MGO #### [facility] [address] [place] [phone] [place] [address] [place] [id number] HEMOGRAM (CBC AND Collected: 07/01/2017 Status: F Source: [facility]) 3:33 AM [facility] REPOSITORY TYPE CODE TESTS RESULT OUT OF REFERENCE UNITS RANGE LAB WBC 4.23-9.07 K/uL WBC Count 7.97 LAB RBC 4.63-6.08 M/uL Low RBC Count 3.05 LAB HGB 13.7-17.5 g/dL Low Hemoglobin 9.8 LAB HCT 40.1-51.0 % Low Hematocrit 29.8 LAB MCV 79.0-92.2 fL Mean Cell High Volume 97.7 LAB MCH 25.7-32.2 pg Mean Cell Hgb 32.1 LAB MCHC 32.3-36.5 g/dL Mean Cell Hgb Conc 32.9 LAB RDW 11.6-14.4 % RBC High Distribution 15.4 LAB PLT 163-337 K/uL Platelet Count High 389 LAB MPV 9.4-12.4 fL Mean Platelet Volume 10.1 LAB NRBC 0.0-0.2 /100 WBC NUCLEATED RBC 0.0 Performed By: #### HEMOGC, CHM7, MGO #### [facility] [address] [address] CHEM 7 Collected: 07/01/2017 Status: F Source: [facility] 3:33 AM [facility] REPOSITORY TYPE CODE TESTS RESULT OUT OF REFERENCE UNITS RANGE LAB BUN 7-22 mg/dL BUN High 52 LAB NA 133-143 mmol/L Sodium 133 LAB K 3.5-5.0 mmol/L Potassium 4.1 LAB CL 98-108 mmol/L Chloride 102 LAB CO2 22-30 mmol/L Low Carbon Dioxide 20 LAB GLUC 70-99 mg/dL Glucose 92 LAB CREA 0.70-1.30 mg/dL High Creatinine 2.07 LAB GAP 7-17 mmol/L Anion Gap 15 LAB BC BUN/CREA Ratio 25 LAB [facility] 278-305 mOsm/kg Osmolality 293 (Calc) LAB GFR >60 mL/min/1.73 Low sqM Est GFR,non 32 [place] Citizen LAB GFRA >60 mL/min/1.73 Low sqM Est GFR, 38 Performed By: #### HEMOGC, CHM7, MGO #### [facility] [address] [place] [id number] [facility] [address] [place] [id number] MAGNESIUM Collected: 07/01/2017 Status: F Source: [facility] 3:33 AM [facility] REPOSITORY TYPE CODE TESTS RESULT OUT OF REFERENCE UNITS RANGE LAB MG 1.6-2.6 mg/dL Magnesium 2.1 Performed By: #### HEMOGC, CHM7, MGO #### [facility] [address] [place] [id number] [facility] [address] [place] [address] HGB & HCT Collected: 06/30/2017 Status: F Source: [facility] 7:06 AM [facility] REPOSITORY TYPE CODE TESTS RESULT OUT OF REFERENCE UNITS RANGE LAB HGB 13.7-17.5 g/dL Low Hemoglobin 10.4 LAB HCT 40.1-51.0 % Low Hematocrit 31.8 Performed By: #### HH #### [facility] [address] [place] [id number] [facility] [address] [place] [id number] HEMOGRAM (CBC AND Collected: 06/30/2017 Status: F Source: [facility]) 2:59 AM [facility] REPOSITORY TYPE CODE TESTS RESULT OUT OF REFERENCE UNITS RANGE LAB WBC 4.23-9.07 K/uL WBC High Count 11.04 LAB RBC 4.63-6.08 M/uL Low RBC Count 2.31 LAB HGB 13.7-17.5 g/dL Low Hemoglobin 7.5 Result Comment: Results inconsistent with previous results LAB HCT 40.1-51.0 % Hematocrit Low 22.9 LAB MCV 79.0-92.2 fL Mean Cell Volume High 99.1 LAB MCH 25.7-32.2 pg Mean Cell Hgb High 32.5 LAB MCHC 32.3-36.5 g/dL Mean Cell Hgb Conc 32.8 LAB RDW 11.6-14.4 % RBC Distribution High 15.7 LAB PLT 163-337 K/uL Platelet Count High 478 LAB MPV 9.4-12.4 fL Mean Platelet Volume 10.7 LAB NRBC 0.0-0.2 /100 WBC NUCLEATED RBC 0.0 Performed By: #### HEMHONEY, CHM7, HFP, MGO, HEP3B #### [facility] [address] [place] [id number] [facility] [address] [place] [id number] CHEM 7 Collected: 06/30/2017 Status: F Source: [facility] 2:59 AM [facility] REPOSITORY TYPE CODE TESTS RESULT OUT OF REFERENCE UNITS RANGE LAB BUN 7-22 mg/dL BUN High 51 LAB NA 133-143 mmol/L Low Sodium 132 LAB K 3.5-5.0 mmol/L Potassium 4.2 LAB CL 98-108 mmol/L Chloride 102 LAB CO2 22-30 mmol/L Low Carbon Dioxide 19 LAB GLUC 70-99 mg/dL Glucose High 128 LAB CREA 0.70-1.30 mg/dL High Creatinine 2.15 LAB GAP 7-17 mmol/L Anion Gap 15 LAB BC BUN/CREA Ratio 24 LAB [facility] 278-305 mOsm/kg Osmolality 294 (Calc) LAB GFR >60 mL/min/1.73 Low sqM Est GFR,non 30 [place] Citizen LAB GFRA >60 mL/min/1.73 Low sqM Est GFR, 37 Performed By: #### HEMHONEY, JEAN-PIERREM7, HFP, MGO, HEP3B #### [facility] [address] [place] [phone] [place] [address] [place] [id number] HEPATIC FUNCTION Collected: 06/30/2017 Status: F Source: [facility] PANEL 2:59 AM [facility] REPOSITORY TYPE CODE TESTS RESULT OUT OF REFERENCE UNITS RANGE LAB ALB 3.5-5.0 g/dL Low Albumin 2.6 LAB BILD <0.3 mg/dL Bilirubin Direct 0.2 LAB BILT <1.5 mg/dL Bilirubin Total 0.5 LAB ALP 32-126 U/L Alkaline High Phosphatase 192 LAB ALT 10-52 U/L ALT 25 LAB AST 14-40 U/L AST 34 LAB TP 6.4-8.3 g/dL Total Protein 6.5 Performed By: #### HEMOGC, CHM7, HFP, MGO, HEP3B #### [facility] [address] [place] [address] [facility] [address] [place], [place] [address] MAGNESIUM Collected: 06/30/2017 Status: F Source: [facility] 2:59 AM [facility] REPOSITORY TYPE CODE TESTS RESULT OUT OF REFERENCE UNITS RANGE LAB MG 1.6-2.6 mg/dL Magnesium 2.1 Performed By: #### HEMOGC, CHM7, HFP, MGO, HEP3B #### [facility] [address] [place] [address] [facility] [address] [place], [place] [address] CHRONIC HEPATITIS B Collected: 06/30/2017 Status: F Source: [facility] PACKAGE 2:59 AM [facility] REPOSITORY TYPE CODE TESTS RESULT OUT OF REFERENCE UNITS RANGE LAB HBSAG Negative Hep B Surface Ag Negative LAB HBSAB Hep B Surface Ab Negative LAB HBCBG Negative Hep B Core Ab,Total Negative (IgG+IgM) LAB HCAB Negative Hepatitis C Negative Antibody Performed By: #### HEMOGC, CHM7, HFP, MGO, HEP3B #### [facility] [address] [place] [id number] [facility] [address] [place] [id number] US ABDOMEN RUQ/LIVER/GB Observed: 06/29/2017 Status: F Source: [facility] 2:04 PM [facility] REPOSITORY EXAM: US ABDOMEN RUQ/LIVER/GB, 06/29/2017 12:17 PM CLINICAL INDICATIONS: cirrhosis Cirrhosis; COMPARISON: None. TECHNIQUE: Real-time ultrasound evaluation of the right upper quadrant was performed utilizing a curved array transducer. Duplex scan is performed. Color flow images and spectral waveforms obtained. FINDINGS: Pancreas: The pancreas is not visualized on this examination. Liver: Liver is small and shrunken in size and demonstrates a nodular contour. There is coarsening of hepatic echotexture. Morphology suggestive of cirrhosis. There is no focal solid lesion in the hepatic parenchyma. An anechoic cyst with a thin septation is noted in the right lobe near the dome. This measures 2.7 x 3.3 x 3.3 cm. No other internal complex features. No intrahepatic biliary dilatation. Doppler ultrasound demonstrates hepatopetal flow in the main portal vein. Flow velocity is 31 cm/sec which is normal. Gall Bladder: The gallbladder is distended. There is gallbladder wall thickening, nonspecific given the liver disease and ascites. The sonographic Fall's sign was reported as negative. The common duct is normal in caliber measuring 4 mm in diameter. Right Kidney: Limited evaluation of the right kidney demonstrates no hydronephrosis. Bipolar length is 11.3 cm. There is a 2.5 x 3 x 3.3 cm cystic, exophytic lesion at the interpolar region of the right kidney. Echogenicity along the periphery of this lesion is likely artifactual. No internal solid component. Ascites: There is considerable ascites in the upper abdomen. IMPRESSION: 1. Cirrhotic morphology of the liver. No solid hepatic lesion. 2. Cyst in the right lobe of the liver near the dome. 3. Cyst at the interpolar region of the right kidney. Peripheral echogenicity in the cyst is likely artifactual. 4. Ascites. 5. Hepatopetal flow in the portal vein. GRAM (CBC AND Collected: 06/29/2017 Status: F Source: [facility]) 6:01 AM [facility] REPOSITORY TYPE CODE TESTS RESULT OUT OF REFERENCE UNITS RANGE LAB WBC 4.23-9.07 K/uL WBC Count 8.36 LAB RBC 4.63-6.08 M/uL Low RBC Count 3.23 LAB HGB 13.7-17.5 g/dL Low Hemoglobin 10.2 LAB HCT 40.1-51.0 % Low Hematocrit 31.2 LAB MCV 79.0-92.2 fL Mean Cell High Volume 96.6 LAB MCH 25.7-32.2 pg Mean Cell Hgb 31.6 LAB MCHC 32.3-36.5 g/dL Mean Cell Hgb Conc 32.7 LAB RDW 11.6-14.4 % RBC High Distribution 15.5 LAB PLT 163-337 K/uL Platelet Count High 430 LAB MPV 9.4-12.4 fL Mean Platelet Volume 10.0 LAB NRBC 0.0-0.2 /100 WBC NUCLEATED RBC 0.0 Performed By: #### HEMOGC, CHM7, HDLT, MGO #### [facility] [address] [place] [id number] CHEM 7 Collected: 06/29/2017 Status: F Source: [facility] 6:01 [facility] REPOSITORY TYPE CODE TESTS RESULT OUT OF REFERENCE UNITS RANGE LAB BUN 7-22 mg/dL BUN High 53 LAB NA 133-143 mmol/L Sodium 135 LAB K 3.5-5.0 mmol/L Potassium 4.0 LAB CL 98-108 mmol/L Chloride 103 LAB CO2 22-30 mmol/L Carbon Dioxide 23 LAB GLUC 70-99 mg/dL Glucose 85 LAB CREA 0.70-1.30 mg/dL High Creatinine 2.18 LAB GAP 7-17 mmol/L Anion Gap 13 LAB BC BUN/CREA Ratio 24 LAB [facility] 278-305 mOsm/kg Osmolality 297 (Calc) LAB GFR >60 mL/min/1.73 Low sqM Est GFR,non 30 [place] Citizen LAB GFRA >60 mL/min/1.73 Low sqM Est GFR, 36 Performed By: #### HEMOGC, CHM7, HDLT, MGO #### [facility] [address] [place] [address] [place] [address] LIPID PROFILE Collected: 06/29/2017 Status: F Source: [facility] 6:01 [facility] REPOSITORY TYPE CODE TESTS RESULT OUT OF REFERENCE UNITS RANGE LAB SHAMA <200 mg/dL Cholesterol 60 Result Comment: [<200 mg/dL: Desirable] [200-239 mg/dL: Borderline High] [>239 mg/dL: High] LAB TRIGE <150 mg/dL Triglycerides 105 Result Comment: [<150 mg/dL: Desirable] [150-199 mg/dL: Borderline] [200-499 mg/dL: High] [>500 mg/dL: Very High] LAB HDLC >40.0 mg/dL HDL Cholesterol Low 14 Result Comment: [<40 mg/dL: Low (High Risk)] [>59 mg/dL: High (Low Risk)] LAB LDL 0-99 mg/dL Calculated LDL Cholesterol 25 Result Comment: [<100 mg/dL: Optimal] [100-129 mg/dL: Near Optimal] [130-159 mg/dL: Borderline High] [160-189 mg/dL: High] [>189 mg/dL: Very High] LAB CHR <4.5 Tot CHOL/HDL 4.3 Result Comment: [<4.5: Low risk] LAB NHCHOL <130 mg/dL Non HDL Cholesterol 46 Performed By: #### HEMOGC, CHM7, HDLT, MGO #### [facility] [address] [place] [phone] [place] [address] [place] [address] MAGNESIUM Collected: 06/29/2017 Status: F Source: [facility] 6:01 AM [facility] REPOSITORY TYPE CODE TESTS RESULT OUT OF REFERENCE UNITS RANGE LAB MG 1.6-2.6 mg/dL Magnesium 2.2 Performed By: #### HEMOGC, CHM7, HDLT, MGO #### [facility] [address] [place] [phone] [place] [address] [place] [address] VANCOMYCIN, TROUGH Collected: 06/28/2017 Status: F Source: [facility] 11:40 PM [facility] REPOSITORY TYPE CODE TESTS RESULT OUT OF REFERENCE UNITS RANGE LAB VANCTR 10.0-20.0 mcg/mL High 25.0 Vancomycin, Trough Performed By: #### VANCTR #### [facility] [address] [place] [address] [address] [address] CHEST WITHOUT Observed: 06/28/2017 Status: F Source: [facility] CONTRAST 6:39 PM [facility] REPOSITORY EXAM: CT CHEST WITHOUT CONTRAST, 06/28/2017 17:37 PM COMPARISON: No Available Comparisons. CLINICAL INDICATIONS: abnormal finding on TTE; RELEVANT CLINICAL HISTORY: TECHNIQUE: Axial CT images were reconstructed from the volumetric data set, from the thoracic inlet through the adrenal glands. No intravenous contrast was used. Coronal MIP images were also reconstructed. This patient underwent a CT examination using radiation exposure as low as reasonably achievable. CTDIvol and DLP radiation exposure values for each series were: Exposure: 1; Series: 2; Anatomy: Chest; Phantom: 32 cm; CTDIvol: 7; DLP: [address] are the volume Computed Tomography (CT) Dose Index (CTDIvol) and the Dose Length Product (DLP), and are measured in units of mGy and mGy-cm, respectively. These indicators are not patient dose, but values generated from the CT scanner acquisition factors and may substantially underestimate or overestimate the absorbed dose based on patient size and other factors. FINDINGS: Lungs and Pleura: There are no areas of consolidation. There is no suspicious pulmonary nodule. Small bilateral pleural effusions with associated compressive atelectatic foci. There is no pneumothorax. Tracheobronchial tree: The central tracheobronchial tree is patent. Mediastinum/Raquel: There are no enlarged mediastinal or hilar lymph nodes. The visualized inferior aspect of the thyroid gland is unremarkable. The esophagus is decompressed and otherwise unremarkable. Axilla and Supraclavicular Regions: No axillary or supraclavicular adenopathy. Cardiovascular: Mild cardiomegaly, with asymmetric enlargement of the left- sided cardiac chambers. There is a trace pericardial effusion. There are coarse calcifications of the aortic valve leaflets, which may underlie hemodynamically significant aortic stenosis. There are extensive multivessel coronary artery calcifications. There are moderate atherosclerotic changes of the thoracic aorta and great vessels. The main pulmonary artery is enlarged, measuring up to 3.3 cm. Upper Abdomen: Atrophy and nodularity of the liver. Nonspecific hypoattenuating focus involving the medial aspect of the left hepatic lobe (series 2, image 49). Large amount of abdominal ascites. Mild atrophy of the left kidney. The patient is status post splenectomy. Atherosclerotic changes of the abdominal aorta and its tributaries. Bones and Soft Tissue: There are mild degenerative changes of the thoracic spine. There are no aggressive osseous lesions. The visualized subcutaneous tissues of the chest wall appear unremarkable. IMPRESSION: 1. Small bilateral pleural effusions with associated compressive atelectatic foci. 2. Mild cardiomegaly, with asymmetric enlargement of the left-sided cardiac chambers. 3. Extensive multivessel coronary artery disease. 4. Calcifications of the aortic valve leaflets, which may underlie hemodynamically significant aortic stenosis. 5. Enlargement of the main pulmonary artery which measures up to 3.3 cm. 6. Hepatic cirrhosis. Nonspecific hypoattenuating focus within the medial aspect of the left hepatic lobe. 7. Large amount of abdominal ascites. SPINE LUMBOSACRAL AP Observed: 06/28/2017 Status: F Source: [place] [facility] 9:31 AM [facility] REPOSITORY EXAM: XR SPINE LUMBOSACRAL AP AND LATERAL, 06/27/2017 22:05 PM COMPARISON: MRI lumbar spine dated June 28, [address] lumbar spine dated November 22, 2016 CLINICAL INDICATIONS: back pain RELEVANT CLINICAL HISTORY: STANDING; FINDINGS: 2 images obtained Vertebral: There are 5 typical lumbar spine vertebral bodies. Severe compression deformity of L5 and slight anterior wedging of T12. No spondylolisthesis. No spondylolysis. Disc: Multilevel degenerative disc disease Joint: Facet joints appear anatomically aligned. Multilevel facet hypertrophy. Atherosclerotic calcifications. There is patchy sclerosis in the partially visualized right femoral neck. IMPRESSION: 1. Compression deformities of L5 and T12 are unchanged since prior examination dated November 15, 2016 2. Multilevel degenerative disc disease. 3. Patchy sclerosis in the right femoral neck is incompletely visualized. If clinically indicated, further imaging of the right hip could be obtained. I personally viewed and interpreted these images and I have reviewed and approved this report. Observed: 06/28/2017 Status: F Source: [facility] BLOOD:ROUTINE I 9:08 AM [facility] REPOSITORY SOURCE: BLOOD, PERIPHERAL: Site not specified RESULT: NO GROWTH DAY 5 OF 5 REPORT STATUS: 07/03/2017 FINAL Performed By: #### FAST #### [address] [address] Blood Cultures processed at: [facility] Observed: 06/28/2017 Status: F Source: [facility] BLOOD: LINE ASSESSMENT 9:08 AM [facility] REPOSITORY SOURCE: VASCULAR CATHETER BLOOD: RESULT: NO GROWTH DAY 5 OF 5 REPORT STATUS: 07/03/2017 FINAL Performed By: #### LINE #### [address] [address] Blood Cultures processed at: [facility] MRI SPINE LUMBAR WITH Observed: 06/28/2017 Status: F Source: [facility] AND WITHOUT CONTRAST 9:01 AM [facility] REPOSITORY EXAM: MRI SPINE LUMBAR WITH AND WITHOUT CONTRAST, 06/28/2017 04:40 AM COMPARISON: Previous MRI from outside facility 06/25/2017, previous CT 11/22/2016 and older MRI 10/05/2016. CLINICAL INDICATIONS: 72 years Male Epidural abscess; RELEVANT CLINICAL HISTORY: Cuong Marshall is a 72 y.o. male with a significant past medical history of Non-Hodgkin's lymphoma (2002) with metastasis to bone. He had chemotherapy and radiation therapy to L4/L5 with subsequent laminectomy (11/02/2015) which was complicated by an infected, non-healing wound. He also has PMH of pressure ulcers on both feet. Patient was transferred to [facility] (06/26) for management of possible epidural abscess, chronic lumbar wound, and Pasteurella bacteremia. ? TECHNIQUE: A series of sagittal and axial multisequence images of the lumbar spine were obtained both before and after intravenous administration of gadolinium-based contrast using standard protocol. CONTRAST: gadoterate Meglumine (DOTAREM) 5 MMOL/10ML injection 3-60 mL; Route of Administration: Intravenous; Dose: 15 mL. FINDINGS: There are postoperative changes in the lower lumbar spine, with evidence of left hemilaminectomy at L4-5 level. The previous MRI from 10/05/2016 showed extensive posterior inflammation with a subcutaneous collection of gas and fluid along the incision which could be compatible with the patient's history of wound infection. On the current study, the posterior wound is open down to the muscle layer and there is fairly confluent low signal and fibrotic type enhancement along the incision and laminectomy defect site. This inflammation/fibrosis extends along the entire wound from L2 to S1 level and there is no posterior fluid collection evident currently. There is also abnormal osseous signal intensity involving the L2, L3, and L4 spinous processes, suggesting areas of chronic osteomyelitis. However, there is indeed evidence of a right anterior and right lateral epidural collection which is new since the previous postoperative MRI. And this could be compatible with abscess. It is tucked away along the right side and also involves the right L5 nerve root foramen. The size of the suspected abscess actually appears slightly smaller compared to 06/25/2017, for example see axial T2 weighted image 9 today compared to image 10 of the same sequence on the previous MRI. The mass effect on the thecal sac is slightly improved although there is still severe effect on the right L5 and S1 nerve roots. The fluid appears to track down along the right lateral epidural margin to the S1 level. No other new epidural fluid elsewhere. No anterior paravertebral fluid collection noted. There is also evidence of a chronic lesion involving the L5 vertebral body which shows an area of heterogeneous sclerosis and osseous destruction with biconcave height loss and deformity along the right side and central aspect of the vertebral body. This is consistent with the patient's history of a previous osseous lesion treated by radiation. The osseous lesion itself appears stable since the previous imaging. No new osseous destruction or new fracture identified elsewhere. The remainder of the study shows some minor degenerative changes but no significant disc herniations or spinal canal narrowing elsewhere. No disc fluid or other sign of acute discitis. IMPRESSION: Postoperative changes following previous left hemilaminectomy at L4-5. There is a chronic open wound posteriorly, with scarring/inflammation along the wound which extends from L2 through S1. There is no posterior fluid collection currently but there is abnormal osseous signal in the spinous processes suggesting chronic osteomyelitis. There is a right anterior and right lateral epidural fluid collection at the L5 and S1 levels which is suspicious for abscess. It also extends into the right L5 nerve root foramen. It is slightly decreased in size compared to 06/25/2017, with improved mass effect on the thecal sac. There is a chronic osseous lesion and chronic vertebral deformity of L5 which appears stable dating back to 10/05/2016, compatible with the patient's history of a bone lesion treated by radiation. GRAM (CBC AND Collected: 06/28/2017 Status: F Source: [facility] PLATELET) 5:55 AM [facility] REPOSITORY TYPE CODE TESTS RESULT OUT OF REFERENCE UNITS RANGE LAB WBC 4.23-9.07 K/uL WBC Count 8.42 LAB RBC 4.63-6.08 M/uL Low RBC Count 3.13 LAB HGB 13.7-17.5 g/dL Low Hemoglobin 10.1 LAB HCT 40.1-51.0 % Low Hematocrit 30.4 LAB MCV 79.0-92.2 fL Mean Cell High Volume 97.1 LAB MCH 25.7-32.2 pg Mean Cell Hgb High 32.3 LAB MCHC 32.3-36.5 g/dL Mean Cell Hgb Conc 33.2 LAB RDW 11.6-14.4 % RBC High Distribution 15.7 LAB PLT 163-337 K/uL Platelet Count High 394 LAB MPV 9.4-12.4 fL Mean Platelet Volume 10.4 LAB NRBC 0.0-0.2 /100 WBC NUCLEATED RBC 0.0 Performed By: #### HEMOGC, CHM7, MGO #### [facility] [address] [place] [id number] [place] [address] [place] [address] CHEM 7 Collected: 06/28/2017 Status: F Source: [facility] 5:55 AM [facility] REPOSITORY TYPE CODE TESTS RESULT OUT OF REFERENCE UNITS RANGE LAB BUN 7-22 mg/dL BUN High 55 LAB NA 133-143 mmol/L Sodium 134 LAB K 3.5-5.0 mmol/L Potassium 3.7 LAB CL 98-108 mmol/L Chloride 103 LAB CO2 22-30 mmol/L Carbon Dioxide 22 LAB GLUC 70-99 mg/dL Glucose 86 LAB CREA 0.70-1.30 mg/dL High Creatinine 2.01 LAB GAP 7-17 mmol/L Anion Gap 13 LAB BC BUN/CREA Ratio 27 LAB [facility] 278-305 mOsm/kg Osmolality 295 (Calc) LAB GFR >60 mL/min/1.73 Low sqM Est GFR,non 33 [place] [facility] GFRA >60 mL/min/1.73 Low sqM Est GFR, 40 Performed By: #### HEMOGC, CHM7, MGO #### [facility] [address] [place] [address] [address] [address] MAGNESIUM Collected: 06/28/2017 Status: F Source: [facility] 5:55 AM [facility] REPOSITORY TYPE CODE TESTS RESULT OUT OF REFERENCE UNITS RANGE LAB MG 1.6-2.6 mg/dL Magnesium 2.2 Performed By: #### HEMOGC, CHM7, MGO #### [facility] [address] [place] [id number] [place] [address] [place] [address] ECHOCARDIOGRAM Observed: 06/27/2017 Status: F Source: [facility] 2:44 PM [facility] REPOSITORY Patient: Cuong Marshall Med Rec#: [id number] : 1945 Date: 06/27/2017 Age: 72y Height: 173 cm / 67.5 in Weight: 79 kg / 173.8 lbs Sex: M BSA: 1.93 Type: Inpatient Loc: [facility] Referring: WERNERRADHA Reading: Ilya Mzaa DO Ship/Rec/Doc Control: Andi Posey RDCS Rhythm: Normal Sinus HR: 66 BP: 128/71 Transthoracic Echocardiogram Conclusions 1. Left ventricular cavity is mildly dilated. Global hypokinesis with the inferior segments the most affected. Cannot exclude ischemic injury. Ejection fraction moderately reduced, calculated at +/-39% 2. Left and right atrium are mildly enlarged. Right ventricle is normal in size with mild systolic dysfunction. Right heart/pulmonary artery pressure cannot be estimated. 3. Aortic valve calcifications without regurgitation nor stenosis. 4. Mitral valve annular, leaflet and subvalvular calcification. Trace regurgitation 5. Tricuspid valve annulus appears thickened and possibly calcified. Trace regurgitation. 6. Pericardial effusion, trivial and anterior. External to the pericardial space, there is a large density abutting the right atrium and ventricle with surrounding fluid seen in the short axis and subcostal views. No chamber collapse nor hemodynamic effects. Differential as listed below. Clinical correlation required. 7. Aortic root and ascending aorta are mildly enlarged. Procedure Info: Ultrasound device: Claudette. Indication: CHF eval Findings L Ventricle: The left ventricular chamber size is mildly dilated. There is no left ventricular hypertrophy. There is global dysfunction with regional wall motion abnormalities.The inferior segments are severely hypo to akinetic. Remote/recent ischemia to this region cannot be excluded. There is moderately decreased left ventricular systolic function. The left ventricular biplane EF is 39.02%. The left ventricular diastolic filling pattern is consistent with Grade I diastolic dysfunction (impaired relaxation). R Ventricle: The right ventricular cavity size is normal. The right ventricle wall thickness is normal. The right ventricular global systolic function is mildly reduced. L Atrium: The left atrium is mildly dilated. R Atrium: The right atrium is mildly dilated. Interatrial Septum: The interatrial septum is normal. Mitral V: Mitral valve leaflet mobility appears normal. The mitral valve leaflets are mildly thickened. There is mitral annular calcification. Mild mitral leaflet calcification is visualized. There is a trace of mitral regurgitation. Aortic V: The aortic valve is trileaflet. Moderate aortic leaflet calcification is visualized. Systolic excursion of the aortic valve is normal. There is no evidence of aortic regurgitation. There is no evidence of aortic stenosis. Tricuspid V: There is tricuspid annular calcification. The tricuspid valve leaflets are mildly thickened. Tricuspid valve leaflet mobility appears normal. There is a trace tricuspid regurgitation. Unable to estimate the right ventricular systolic pressure. Pulmonic V: The pulmonic valve appears normal. There is a trace pulmonic regurgitation. Aorta: There is mild dilatation of the ascending aorta. There is mild dilatation of the aortic root. Pericardium: A trivial pericardial effusion is visualized. The pericardial effusion is seen adjacent to the right ventricle.External to the pericardium, there is a large density abutting the right atrium and ventricle with surrounding fluid seen in the short axis and subcostal views. Differential includes pleural effusion with atelectactic lung, tumor, liver with surrounding ascites. Clinical correlation required. Diagnosis codes: 49381 Echocardiography, transthoracic, real-time with image documentation (2D), includes M-mode recording, when performed, complete, with spectral Doppler echocardiography, and with color flow Doppler echocardiography. ICD-10 Diagnosis Codes: *I50.40 Unspecified combined systolic (congestive) and diastolic (congestive) heart failure Measurements Name Value Normal Range Ao root diameter (MM) 4.08 cm - LA dimension (AP) MM 5.86 cm (2.7 - 4) LA:Ao ratio (MM) 1.44 ratio - Ao root diameter (MM) in2.11 cm/m2 - LA dimension (MM) index 3.04 cm/m2 - Name Value Normal Range RVID d (basal) 3.79 cm - RVID d (midcavity) 2.88 cm - RV base to apex length 10.1 cm - IVSd (2D) 0.9 cm - LVPWd (2D) 0.94 cm - IVS:LVPW ratio (2D) 0.96 ratio - LVIDd (2D) 5.73 cm (3.8 - 5.7) LVIDs (2D) 4.39 cm (2.2 - 4) LVIDd (2D) index 2.97 cm/m2 - LVIDs (2D) index 2.27 cm/m2 - LV FS (2D) 23 % (20 - 40) Aortic root diameter (2D2.11 cm/m2 - Ao root diameter (2D) 4.07 cm - Sinotubular junction 3.2 cm - Ascending Ao 3.78 cm - Name Value Normal Range LA Area 2 CH 20.9 cm2 - LA Area 4 CH 21.7 cm2 (<21) LA ESV BP (A/L) 58.9 ml - LA ESV BP (A/L) index 30.52 ml/m2 - RA AREA 4CH 19 cm2 - LV EDV SP 4CH (MOD) 100.3 ml - LV ESV SP 4CH (MOD) 59.48 ml - EF SP 4CH (MOD) 40.69 % - LV EDV SP 2CH (MOD) 102.15 ml - LV ESV SP 2CH (MOD) 64.88 ml - EF SP 2CH (MOD) 36.48 % - LV EDV BP 100.89 ml - LV ESV BP 61.52 ml - BP EF (MOD) 39.02 % - LV EDV BP index 52.29 ml/m2 - LV ESV BP index 31.88 ml/m2 - LV mass (2D) 205.28 g - LV mass (2D) index 106.36 g/m2 - Name Value Normal Range MV E-wave Vmax 0.55 m/sec - MV deceleration time 381 msec - MV A-wave Vmax 0.8 m/sec - MV E:A ratio 0.69 ratio - LV septal e' Vmax 0.05 m/sec - LV lateral e' Vmax 0.06 m/sec - LV average e' Vmax 0.06 m/sec - LV E:e' septal ratio 10.98 ratio - LV E:e' lateral ratio 9.15 ratio - LV average E:e' ratio 9.15 ratio - Name Value Normal Range AV Vmax 1.66 m/sec - AV VTI 30.4 cm - AV peak gradient 11.02 mmHg (<36) AV mean gradient 6.01 mmHg (<20) LVOT diameter 2.33 cm (1.7 - 2.5) LVOT Vmax 1.01 m/sec - LVOT VTI 17.8 cm - LVOT peak gradient 4.05 mmHg - LVOT mean gradient 1.91 mmHg - DOI (VTI) 0.59 ratio - DOI (Vmax) 0.61 ratio - SV LVOT 75.86 ml - CO LVOT 5.01 l/min - Cardiac index 2.6 l/min/m2 - SIGRID (continuity Vmax) 2.59 cm2 - SIGRID (continuity Vmax) in1.34 cm2/m2 - SIGRID (continuity VTI) 2.5 cm2 - SIGRID (continuity VTI) ind1.3 cm2/m2 - Name Value Normal Range TAPSE 1.54 - RV S' 15.9 cm/sec - Name Value Normal Range PV Vmax 0.93 m/sec (0.6 - 0.9) PV peak gradient 3.46 mmHg - (R) [place] [employer]. All Rights Reserved. The codes documented in this report are preliminary and upon ror engineer review may be revised to meet current compliance requirements. 12 LEAD ELECTROCARDIOGRAM Observed: 06/27/2017 Status: F Source: [place] 2:[address] [facility] REPOSITORY [facility] Cardiovascular Services [address] [place] [address] 12 Lead EKG 06/21/17 0908 MR#: [id number] Acct: [id number] Name: CUONG MARSHALL Rep #: [id number] : 1945 72 From: Andi Coe MD Attending Dr: Ady Dumont DO Status: DIS IN Ordering Dr: Jarad Marley MD Date: 06/21/17 Location: [facility] Sex: M C Admitted: 06/21/17 Test Reason : ADENOSINE 6MG Blood Pressure : / mmHG Vent. Rate : 130 BPM Atrial Rate : 130 BPM P-R Int : 168 ms QRS Dur : 134 ms QT Int : 330 ms P-R-T Axes : 006 -57 081 degrees QTc Int : 485 ms Sinus tachycardia with Premature atrial complexes Right bundle branch block Left anterior fascicular block Bifascicular block Left ventricular hypertrophy with repolarization abnormality Abnormal ECG Confirmed by ANDI COE ([id number]), scientific editor MENDEZ OSPINA ([id number]) on 06/27/2017 2:24:23 PM Referred By: Sera Haines Confirmed By:ANDI COE 06/27/17 1424 Date Andi Coe MD CC: Linus Lindquist DO; Jarad Marley MD Signed ESR WESTERGREN Collected: 06/27/2017 Status: F Source: [facility] 11:59 [facility] REPOSITORY TYPE CODE TESTS RESULT OUT OF REFERENCE UNITS RANGE LAB ESR <20 mm/hr ESR High Westergren 108 Performed By: #### ESR, CRP #### [facility] [address] [place] [address] [facility] [address] [place], [place] [address] C REACTIVE PROTEIN Collected: 06/27/2017 Status: F Source: [facility] 11:59 [facility] REPOSITORY TYPE CODE TESTS RESULT OUT OF REFERENCE UNITS RANGE LAB CRP <10.00 mg/L C High Reactive 133.20 Protein Performed By: #### ESR, CRP #### [facility] [address] [place] [address] [facility] [address] [place] [address] BACT CULTURE/DIR Observed: Status: F Source: [place] SMEAR,LESION,TISSUE,DEVICE-UHE 06/27/2017 10:20 [facility] REPOSITORY SOURCE: SURGICAL WOUND: Lumbar Region Tissue COMMENT: Tiny Tissue MICROSCOPIC: Neutrophils, None Mononuclear cells present NO ORGANISMS SEEN Gram Stain read at [facility] QUANTITATION: <<NOT APPLICABLE>> RESULT: NO GROWTH DAY 2 REPORT STATUS: 06/29/2017 FINAL Performed By: #### GEN #### [address] [address] Blood Cultures processed at: [facility] Observed: 06/27/2017 Status: F Source: [facility] AFB: TISSUE -[facility] 10:20 [facility] REPOSITORY SOURCE: SURGICAL WOUND: Lumbar Region Tissue COMMENT: Tiny Tissue MICROSCOPIC: No Acid Fast Bacillus Seen :Examined by Fluorochrome Stain RESULT: NO GROWTH DAY 43 OF 43 REPORT STATUS: 08/09/2017 FINAL Performed By: #### AFBT #### [address] [address] Blood Cultures processed at: [facility] XR CHEST PORTABLE Observed: 06/27/2017 Status: F Source: [facility] 9:45 AM [facility] REPOSITORY EXAM: XR CHEST PORTABLE, 06/26/2017 22:48 PM COMPARISON: No prior studies available for comparison. CLINICAL INDICATIONS: bacteremia RELEVANT CLINICAL HISTORY: FINDINGS: (Adequate technique) Tubes, Lines, and life support hardware: There is a right jugular central venous catheter with its tip at the atriocaval junction. Lungs: Consolidation in the left lower lobe, which obscures the left heart border. Right basilar atelectasis. There are no pleural effusions. There is no pneumothorax. Cardiac, mediastinum, and hilum: Obscuration of the left heart border by consolidation in the left lower lung. ... Pulmonary Vessels: Normal, without PVH Impression: 1. Left lower lobe pneumonia. ,PLATELET,DIFFERENTIAL - CCL Collected: Status: F Source: [facility] 06/27/2017 2:42 AM [facility] REPOSITORY TYPE CODE TESTS RESULT OUT OF REFERENCE UNITS RANGE LAB WBC 4.23-9.07 K/uL WBC Count 10.44 High LAB RBC 4.63-6.08 M/uL RBC Count 3.17 Low LAB HGB 13.7-17.5 g/dL Hemoglobin 10.2 Low LAB HCT 40.1-51.0 % Hematocrit 30.6 Low LAB MCV 79.0-92.2 fL Mean Cell 96.5 High Volume LAB MCH 25.7-32.2 pg Mean Cell 32.2 Hgb LAB MCHC 32.3-36.5 g/dL Mean Cell 33.3 Hgb Conc LAB RDW 11.6-14.4 % RBC 15.3 High Distribution LAB PLT 163-337 K/uL Platelet 367 High Count LAB MPV 9.4-12.4 fL Mean 10.6 Platelet Volume LAB NRBC 0.0-0.2 /100 WBC NUCLEATED 0.2 RBC LAB DTYPE Electronic DIFFERENTIAL TYPE Differential LAB IGRE % IMMATURE 0.6 GRANS % LAB SEGS % NEUTROPHIL 77.4 SEGMENTED LAB LYM % LYMPHOCYTE 8.8 % LAB MON % MONOCYTE % 12.3 LAB EOS % EOSINOPHIL 0.6 % LAB BASO % BASOPHIL % 0.3 LAB IGABS 0.00-0.03 K/uL IMMATURE 0.06 High GRANS ABSOLUTE LAB SBANS 1.78-5.38 K/uL SEGS + 8.09 High Bands,Absolute LAB ALYM 1.32-3.57 K/uL Abs Lymph 0.92 Low LAB AMONO 0.30-0.82 K/uL Abs [place] 1.28 High LAB AEOS 0.04-0.54 K/uL Abs Eos 0.06 LAB ABASO 0.01-0.08 K/uL Abs Baso 0.03 Performed By: #### CBCDFC, CA, CHM7, HFP, IPB, MGO, PTPTT, TROP #### [facility] [address] [place] [address] CALCIUM Collected: 06/27/2017 Status: F Source: [facility] 2:42 AM [facility] REPOSITORY TYPE CODE TESTS RESULT OUT OF REFERENCE UNITS RANGE LAB CA 8.6-10.5 mg/dL Low Calcium 8.4 Performed By: #### CBCDFC, CA, CHM7, HFP, IPB, MGO, PTPTT, TROP #### [facility] [address] [address] CHEM 7 Collected: 06/27/2017 Status: F Source: [facility] 2:42 [facility] REPOSITORY TYPE CODE TESTS RESULT OUT OF REFERENCE UNITS RANGE LAB BUN 7-22 mg/dL BUN High 55 LAB NA 133-143 mmol/L Sodium 135 LAB K 3.5-5.0 mmol/L Potassium 3.5 LAB CL 98-108 mmol/L Chloride 104 LAB CO2 22-30 mmol/L Carbon Dioxide 23 LAB GLUC 70-99 mg/dL Glucose High 128 LAB CREA 0.70-1.30 mg/dL High Creatinine 1.86 LAB GAP 7-17 mmol/L Anion Gap 12 LAB BC BUN/CREA Ratio 30 LAB OSMC 278-305 mOsm/kg Osmolality 299 (Calc) LAB GFR >60 mL/min/1.73 Low sqM Est GFR,non 36 [place] [facility] GFRA >60 mL/min/1.73 Low sqM Est GFR, 43 Performed By: #### CBCDFC, CA, CHM7, HFP, IPB, MGO, PTPTT, TROP #### [facility] [address] [place] [address] HEPATIC FUNCTION Collected: 06/27/2017 Status: F Source: [facility] 2:42 [facility] REPOSITORY TYPE CODE TESTS RESULT OUT OF REFERENCE UNITS RANGE LAB ALB 3.5-5.0 g/dL Low Albumin 2.5 LAB BILD <0.3 mg/dL Bilirubin Direct 0.2 LAB BILT <1.5 mg/dL Bilirubin Total 0.5 LAB ALP 32-126 U/L Alkaline High Phosphatase 168 LAB ALT 10-52 U/L ALT 26 LAB AST 14-40 U/L AST 34 LAB TP 6.4-8.3 g/dL Total Protein 6.5 Performed By: #### CBCDFC, CA, CHM7, HFP, IPB, MGO, PTPTT, TROP #### [facility] [address] [place] [address] [facility] [address] [place] [address] INORGANIC PHOSPHATE Collected: 06/27/2017 Status: F Source: [facility] 2:42 [facility] REPOSITORY TYPE CODE TESTS RESULT OUT OF REFERENCE UNITS RANGE LAB IP 2.2-4.6 mg/dL In[place] Phosphate 3.1 Performed By: #### CBCDFC, CA, CHM7, HFP, IPB, MGO, PTPTT, TROP #### [facility] [address] [place] [phone] [place] [address] [place] [address] MAGNESIUM Collected: 06/27/2017 Status: F Source: [facility] 2:42 [facility] REPOSITORY TYPE CODE TESTS RESULT OUT OF REFERENCE UNITS RANGE LAB MG 1.6-2.6 mg/dL Magnesium 2.2 Performed By: #### CBCDFC, CA, CHM7, HFP, IPB, MGO, PTPTT, TROP #### [facility] [address] [place] [address] [facility] [address] [place] [address] PT*PTT Collected: 06/27/2017 Status: F Source: [facility] 2:42 [facility] REPOSITORY TYPE CODE TESTS RESULT OUT OF RANGE REFERENCE UNITS LAB PT 11.9-14.2 sec High PT 22.1 LAB INR 0.9-1.1 High INR 2.0 LAB PTT 24.0-34.3 sec High PTT 49.1 Performed By: #### CBCDFC, CA, CHM7, HFP, IPB, MGO, PTPTT, TROP #### [facility] [address] [place] [address] [facility] [address] [place] [address] TROPONIN I Collected: 06/27/2017 Status: F Source: [facility] 2:42 [facility] REPOSITORY TYPE CODE TESTS RESULT OUT OF REFERENCE UNITS RANGE LAB BNP 0-100 pg/mL B-Type High Natriuretic 1557 Peptide Performed By: #### CBCDFC, CA, CHM7, HFP, IPB, MGO, PTPTT, TROP #### [facility] [address] [place] [address] [facility] [address] [place], [place] [address] Observed: 06/27/2017 Status: F Source: [facility] BLOOD:ROUTINE II 2:42 AM [facility] REPOSITORY SOURCE: BLOOD, PERIPHERAL: Right Forearm RESULT: NO GROWTH DAY 5 OF 5 REPORT STATUS: 07/02/2017 FINAL Performed By: #### FAST2 #### [facility] [address] [place] [address] Blood Cultures processed at: [facility] Observed: 06/27/2017 Status: F Source: [facility] BLOOD: LINE ASSESSMENT 2:42 AM [facility] REPOSITORY SOURCE: LINE, TEMPORARY CVC: RESULT: NO GROWTH DAY 5 OF 5 REPORT STATUS: 07/02/2017 FINAL Performed By: #### LINE #### [place] [address] Blood Cultures processed at: [facility] CREATININE, URINE - Collected: 06/27/2017 Status: F Source: [facility] 2:08 AM [facility] REPOSITORY TYPE CODE TESTS RESULT OUT OF RANGE REFERENCE UNITS LAB CREU1 mg/dL 64.00 Creatinine, urine mg/dL Result Comment: The reference range has not been established for random urine specimens. The test result should be integrated into the clinical context for interpretation. Performed By: #### UCRER, ULYTR, UREAR #### [facility] [address] [place] [address] [place] [address] LYTES (NA,K,CL), URINE Collected: 06/27/2017 Status: F Source: [facility] 2:08 AM [facility] REPOSITORY TYPE CODE TESTS RESULT OUT OF REFERENCE UNITS RANGE LAB NAU1 mmol/L URINE SODIUM 52 Result Comment: The reference range has not been established for random urine specimens. The test result should be integrated into the clinical context for interpretation. LAB KU1 mmol/L URINE POTASSIUM 20.8 Result Comment: The reference range has not been established for random urine specimens. The test result should be integrated into the clinical context for interpretation. LAB CLU1 mmol/L URINE CHLORIDE 43 Result Comment: The reference range has not been established for random urine specimens. The test result should be integrated into the clinical context for interpretation. Performed By: #### UCRER, ULYTR, UREAR #### [facility] [address] [place] [address] [facility] [address] [place] [address] URINE UREA NITROGEN - Collected: 06/27/2017 Status: F Source: [facility] RANDOM 2:08 AM [facility] REPOSITORY TYPE CODE TESTS RESULT OUT OF REFERENCE UNITS RANGE LAB UREA1 mg/dL Urine Urea 829 Nitrogen Performed By: #### UCRER, ULYTR, UREAR #### [facility] [address] [place] [phone] [place] [address] [place] [address] URINALYSIS REFLEX Collected: 06/27/2017 Status: F Source: [facility] CULTURE 2:08 AM [facility] REPOSITORY TYPE CODE TESTS RESULT OUT OF RANGE REFERENCE UNITS LAB ENAMEL SPRAYER Clear Appearance Urine Clear LAB SPGR 1.001-1.035 Specific [place] urine 1.020 LAB UGL Negative mg/dL Glucose Urine Negative LAB UKET Negative Ketones Urine Negative LAB UBLD Negative Blood Urine Abnormal Large LAB UPH 5.0-7.0 pH Urine 5.0 LAB UPR Negative mg/dL Protein Abnormal Urine 100 LAB UNTR Negative Nitrites Urine Negative LAB ULEU Negative Leukocyte Abnormal Esterase Trace LAB COLR YEL,DKYEL Color Yellow LAB UURO <2.0 EU/dL Urobilinogen 0.2 urine LAB UWBC 0-5 /HPF WBC Urine 0-5 LAB URBC 0-2 /HPF RBC Urine >20 LAB BACT Absent Bacteria Absent LAB UCOM COMMENT URINE Mucus LAB EPIS /HPF Squamous Epithelial Absent Performed By: #### URIN1 #### [facility] [address] [place] [id number] [place] [address] [place] [address] DISCHARGE SUMMARY Observed: 06/26/2017 Status: F Source: [place] 9:[address] [facility] REPOSITORY [facility] Medical Records Department [address] [place] [address] Discharge Summary 06/26/17 0925 MR#: [id number] Acct: [id number] Name: CUONG MARSHALL Rep #: [id number] : 1945 72 From: Ady Dumont DO PCP: Linus Lindquist DO Status: ADM IN Y Location: [place] [address] 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) nonhealing ulcer lumbar back area Open wound of lower back (Chronic) with muscle and bone exposed s/p surgical debridement of abscess s/p lumbar spine surgery Chronic ulcer of right leg with fat layer exposed (Chronic) Lumbar disc disease (Chronic) Edema of both legs (Chronic) Leg swelling (Chronic) History of diverticulitis (Chronic) Hyperlipidemia (Chronic) Back pain at L4-L5 level (Chronic) History of non-Hodgkin's lymphoma (Chronic) Hypertension (Chronic) Shortness of breath (Chronic) Hypoxia (Chronic) History of atrial fibrillation (Chronic) Surgical wound dehiscence (Chronic) Renal insufficiency (Chronic) Soft tissue radionecrosis (Chronic) Ulcer of left heel and midfoot with fat layer exposed (Chronic) Decubitus ulcer, heel, right, unstageable (Chronic) Peripheral vascular disease (Chronic) Edema, lower extremity (Chronic) Malnutrition (Chronic) Pressure ulcer, back, lower (Chronic) Ulcer of right foot with fat layer exposed (Chronic) Decubitus ulcer of right foot, unstageable (Chronic) Peripheral vascular disease (Chronic) Ulcer of right lower extremity with fat layer exposed (Chronic) Tinea unguium (Chronic) Hospital Course and Treatment Imaging Results: Clinical Impression(s) from Imaging Studies Chest X-Ray 06/21/17 09:01 IMPRESSION: 1. Increasing pulmonary congestion. 2. Mild cardiomegaly. Electronically Signed: Kalie Ospina MD at 9:37 EST , Service support , Brain CT 06/21/17 09:10 IMPRESSION: 1. Chronic involutional changes of the brain. 2. 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 3. No CT evidence of acute intracranial hemorrhage. 4. Possible acute left ethmoid sinus disease. Electronically Signed: Kalie Ospina MD at 10:30 EST , Service support , Chest X-Ray 06/21/17 14:34 IMPRESSION: 1. Mild cardiomegaly and pulmonary congestion. 2. Appropriate positioning of right-sided central line without evidence for pneumothorax. Electronically Signed: Kalie Ospina MD at 15:10 EST , Service support , Soft Tissue Neck CT 06/23/17 13:15 IMPRESSION: 1. 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 2. No CT evidence of any suspicious mass in the suprahyoid neck and infrahyoid neck. 3. Atherosclerotic calcifications of both carotid arteries, both common carotid bifurcations in both internal carotid arteries. Additional atherosclerotic calcifications of the innominate artery and left subclavian artery. 4. Pronounced degenerative disc space height narrowing at C5-C6 and C6-C7 disc space levels with minimal anterior and posterior marginal spurs. 5. Mild C4-C5 degenerative disc space height narrowing. Electronically Signed: Otto Renteria MD at 15:56 EST , Service support , Hip/Pelvis X-Ray 06/24/17 16:18 IMPRESSION: 1. No fracture or malalignment. 2. 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 Stable since 2013. Electronically Signed: Calos Nolan MD at 20:38 EST , Service support , Lumbar Spine MRI 06/25/17 11:04 IMPRESSION: L5/S1: Right epidural fluid collection. Given the history of infection finding is concerning for epidural abscess. Further evaluation with contrast-enhanced examination can be obtained. N.B. : The above information has been verbally conveyed by Juan Foster MD to Dr. Ady Dumont, Covering Physician, on 06/25/2017 14:01:13 (ET). Electronically Signed: Juan Foster MD at 13:23 EST Tel , Service support , N.B. : The above information has been verbally conveyed by Juan Foster MD to Dr. dAy Dumont, Covering Physician, on 06/25/2017 14:01:13 (ET). Consultations 06/21/17 12:49 Consult: Onc/Wound/flow match sofa cutter Routine Comment: Large sacral decubitus wound Dr. Mendes, CCM Dr. Poon, Cardiology Drs. Meyers and Wilber of nephrology Procedures: 2-D Echocardiogram, - - Right IJ TLC Summary of Care Provided: The patient is a 72 year old M severe sepsis, infected back wound, atrial fibrillation with RVR, non-STEMI. Subsequently patient was found to have bacteremia of the same organism infecting his back and epidural abscess. Patient is to go to the [facility] for evaluation by mobility specialist in regards to the epidural abscesses. 1. epidural abscess * noted on MRI * Plan is for the patient to go to the [facility] and be evaluated by neurosurgery or for definitive management. * Continue with antibiotics. Given the positive wound culture and bacteremia for the same organism patient is continue with Rocephin for the pasteurella. * Patient with severe pain that is not adequately relieved with the 2 mg of Dilaudid. Will increase the dose and frequency to 2-3 every 3 hours as needed from 2 mg every 4 hours as needed. * Likely the epidural abscess was present on admission the patient had no imaging to validate that. Patient's pain, however, did get worse clearly during the and the . * As mentioned previous documentation, patient did not want to go back to the [facility] who did the initial spine surgery and he and his are requesting [facility] as I have been told has a bed and the patient will be transferred up there hopefully this morning but may not be into the afternoon. 2. Atrial fibrillation with RVR * Currently normal sinus rhythm * On amiodarone * Anticoagulated with Eliquis 3. Severe sepsis * Present on admission * Secondary to infected back wound, epidural abscess and bacteremia 4. Infected back wound * Positive Pasteurella * Rocephin * infectious disease following 5. Bacteremia * 1 of 2 sets positive for the pasteurella species * Continue with antibiotics * Repeat blood cultures on the are so far negative. 6. Right hip pain * xray was negative for any fracture showed a chronic endochondroma * Speck that this is radicular given the epidural abscesses. 7. Chronic kidney disease stage 3 * Stable. Monitor * Nephrology following 8. Non-STEMI * Clinically stable * May be a type II event given the patient's severe sepsis, atrial fibrillation with RVR and bacteremia * Follow-up with cardiology as outpatient 9. Cardiomyopathy * Ejection fraction of 20%, this is down from 60% from August 11, 2013. * On aspirin 9. DVT prophylaxis: Patient is on Eliquis [] Discharge Diet: Low fat/ Low Cholesterol Discharge Activity: - - Activity as directed by the medical representative and therapist Call your doctor if you observe: Fever of 101 or Higher, Shortness of breath, - - Worsening back pain Home Medications: Medications to take at Discharge Ferrous Gluconate 240 mg PO BID 02/05/16 Folic Acid 1 mg PO QHS 02/05/16 Magnesium Oxide [Magnesium] 400 mg PO DAILY 02/05/16 Metoprolol Tartrate [Lopressor (beta cyndi)] 12.5 mg PO BID 02/05/16 Apixaban [Eliquis] 2.5 mg PO BID 03/16/16 Cholecalciferol (Vitamin D3) [Vitamin D3] 1,000 unit PO QHS 10/14/16 Gabapentin [Neurontin] 100 mg PO BIDCM #60 capsule 10/25/16 Oxycodone [Oxyir] 30 mg PO PRN PRN 02/13/17 atorvastatin 20 mg tablet 20 mg PO QDAY #90 tab 05/16/17 Vit C/E/Zn/Coppr/Lutein/Zeaxan [Preservision Areds 2 Softgel] 2 each PO DAILY 06/21/17 Primary Care Physician: Linus Lindquist DO [Primary Care Provider] - Within 2 Weeks Please Follow Up With: Andi Coe MD - Cardiology When: 2-4 weeks Disposition: Acute care Hospital Minutes spent on discharge:: 35 Patient Condition:: Stable Meaningful Use Info Meaningful Use Diagnoses (Choose all that apply): AMI - AMI Aspirin given w/in 24hrs of arrival?: Yes ASA at discharge?: Yes Statins at discharge?: Yes Teetee/ARB at discharge?: No Reason Teetee/ARB not ordered:: Worsening renal disease Beta Cyndi at discharge?: Yes Done w/ Acute DE measure.: Yes Code Visit Inpatient E AND M: [id number] Disch Hosp 06/26/17 0931 <Electronically signed by Ady Dumont DO> Date Ady Dumont DO Cosigner Signature (if applicable): Date CC: Ady Dumont DO; Linus Lindquist DO Signed CBC W/DIFF, AUTOMATED Collected: 06/26/2017 Status: F Source: [place] 4:[address] [facility] REPOSITORY TYPE CODE TESTS RESULT OUT OF RANGE REFERENCE UNITS LAB L100.1000 4.4-11.0 K/mm3 High WBC 12.1 LAB L100.1200 4.6-6.2 M/mm3 Low RBC 3.26 LAB L100.1300 13.0-16.5 g/dl Low HGB 10.4 LAB L100.1400 40-54 % Low HCT 32.0 LAB L100.1500 80-94 fL High MCV 98.2 LAB L100.1600 27.0-32.0 pg Normal MCH 31.9 LAB L100.1700 32-36 g/gl Normal MCHC 32.5 LAB L100.1810 11.6-14.6 % High RDW CV 15.4 LAB L100.1820 35.1-43.9 fl High RDW SD 55.3 LAB L100.1900 150-450 K/mm3 Normal PLT 324 LAB L100.2000 6.2-12.0 fl Normal MPV 10.5 LAB L100.2100 47-70 % High NEUT% 84.7 LAB L100.2200 19-41 % Low LY% 6.0 LAB L100.2300 0-10 % Normal MONO% 8.7 LAB L100.2400 0-5 % Normal EO% 0.1 LAB L100.2500 0-1 % Normal BASO% 0.1 LAB L100.2550 0.0-0.9 % Normal IM GRAN % 0.400 Result Comment: IG% - Immature Granulocytes (promyelocytes, myelocytes and metamyelocytes) > 1% indicates that a LEFT SHIFT is Present. LAB L100.2620 2.0-7.7 X10 3/uL High Absolute Neut 10.3 LAB L100.2720 0.83-4.51 X10 3/ul Low Absolute Lymph 0.73 Performed By: #### L100.0100, L100.4425 #### [facility] [address] [place], [place], [address] NRBC PANEL Collected: 06/26/2017 Status: F Source: [place] 4:[address] [facility] REPOSITORY TYPE CODE TESTS RESULT OUT OF RANGE REFERENCE UNITS LAB L100.4450 0-5 % Normal NRBC, FLAGGED 0.1 LAB L100.4455 0-5 10 3/uL Normal NRBC # 0.02 Performed By: #### L100.0100, L100.4425 #### [facility] [address] [place], [place], [address] BASIC METABOLIC Collected: 06/26/2017 Status: F Source: [place] PROFILE (BMP) 4:[address] [facility] REPOSITORY TYPE CODE TESTS RESULT OUT OF RANGE REFERENCE UNITS LAB L501.0100 74-106 mg/dL Normal GLU 96 Result Comment: Please note revised GLUCOSE reference range effective 2017. LAB L501.1000 7-18 mg/dL High BUN 64 LAB L501.1100 0.70-1.30 mg/dL High CREAT,SERUM 1.89 Result Comment: The validity of the calculated GFR AND GFRAA in patients over 70 years has not been determined. Clinical correlation is essential. LAB L501.1110 >60 mL/min Low EST GFR 37 Result Comment: Non- GFR Calc LAB L501.1115 >60 mL/min Low EST GFR - AA 45 Result Comment: GFR Calc LAB L501.1255 ml/min Normal Estimated CRCL 33.68 LAB L501.1300 10-20 RATIO High BUN/CRE 33.9 LAB L501.2200 8.5-10 mg/dL Low .1 CA 8.1 LAB L501.5300 136-14 mmol/L Normal 5 NA 136 LAB L501.5600 3.5-5. mmol/L Normal 1 K 3.6 LAB L501.5900 98-107 mmol/L Normal CL 105 LAB L501.6100 21.0-3 mmol/L Normal 2.0 CO2 23.0 LAB L501.6200 5-15 Normal GAP 8 Performed By: #### L500.2500 #### [facility] [address] [place], [address] CONSULTATION Observed: 06/25/2017 Status: F Source: [place] 8:[address] [facility] REPOSITORY [facility] Medical Records Department [address] [place] [address] Consultation 06/24/17 1737 MR#: [id number] Acct: [id number] Name: CUONG MARSHALL Rep #: [id number] : 1945 72 From: Farooq Cook MD PCP: Linus Lindquist DO Status: ADM IN Location: [place] [address]1 Reason for Consult Date of Consultation: 06/24/17 Reason for Consultation: Nonhealing infected back ulcer with exposed bone. REFERRING PHYSICIAN: Dr. Bueno. DRAPERY COUNSELOR: Dr.. Cook. History of Present Illness: 72 year old man presents with a chronic draining lumbar back wound that developed after a microdiscectomy in October, at [facility]. The draining wound never healed. He was scheduled recently for wound closure with muscle flaps in [place]. The surgery was postponed because of persistent infection and he was sent to [facility] for continued wound care until the wound has improved to the point to proceed with muscle flap reconstruction. Patient has a history of Non-Hodgkin's Lymphoma and had radiation therapy to his back. I was asked to evaluate his nonhealing ulcer lower back for surgical options for treatment. 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) nonhealing ulcer lumbar back area Open wound of lower back (Chronic) with muscle and bone exposed s/p surgical debridement of abscess s/p lumbar spine surgery Chronic ulcer of right leg with fat layer exposed (Chronic) Lumbar disc disease (Chronic) Edema of both legs (Chronic) Leg swelling (Chronic) History of diverticulitis (Chronic) Hyperlipidemia (Chronic) Back pain at L4-L5 level (Chronic) History of non-Hodgkin's lymphoma (Chronic) Hypertension (Chronic) Shortness of breath (Chronic) Hypoxia (Chronic) History of atrial fibrillation (Chronic) Surgical wound dehiscence (Chronic) Renal insufficiency (Chronic) Soft tissue radionecrosis (Chronic) Ulcer of left heel and midfoot with fat layer exposed (Chronic) Decubitus ulcer, heel, right, unstageable (Chronic) Peripheral vascular disease (Chronic) Edema, lower extremity (Chronic) Malnutrition (Chronic) Pressure ulcer, back, lower (Chronic) Ulcer of right foot with fat layer exposed (Chronic) Decubitus ulcer of right foot, unstageable (Chronic) Peripheral vascular disease (Chronic) Ulcer of right lower extremity with fat layer exposed (Chronic) Tinea unguium (Chronic) Past Medical History Past Medical History: Hypertension. Hyperlipidemia. Renal insufficiency. 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 Atrial fibrillation. Back pain. Diverticulitis. Soft tissue radionecrosis. COPD. MARY JANE. Kidney stones. PVD. Lumbar disc disease. Surgical History: - - The patient underwent partial colectomy for diverticulitis and splenectomy in 2002. Several months later, and ileostomy, which had been performed at the time of the initial surgery, was reversed. Lumbar L4-[address] Swan at the [facility] on November 02, 2015. Allergies sulfamethoxazole [From Bactrim] Allergy (Verified 06/21/17 08:58) Other trimethoprim [From Bactrim] Allergy (Verified 06/21/17 08:58) Other prednisone Adverse Reaction (Verified 06/21/17 08:58) Swelling Current Medications Acetaminophen (Tylenol) 650 mg PO Q6H PRN Amiodarone HCl (Cordarone) 200 mg PO DAILY [facility] Apixaban (Eliquis) 2.5 mg PO BID [facility] Aspirin (Ecotrin) 81 mg PO DAILY@0800 [facility] Atorvastatin Calcium (Lipitor) 20 mg PO QHS [facility] Chlorhexidine Gluconate () 1 each TOPICAL DAILY [facility] Famotidine (Pepcid) 20 mg PO DAILY [facility] Fentanyl (Duragesic) 25 mcg TRANSDERM. Q3D [facility] Folic Acid (Folic Acid) 1 mg PO QHS [facility] Gabapentin (Neurontin) 100 mg PO TIDCM [facility] Hydromorphone HCl (Dilaudid) 2 mg PO Q4H PRN Ceftriaxone Sodium (Rocephin) 1 gm in 50 mls @ 100 mls/hr IV Q24 [facility] Lidocaine (Lidoderm Patch) 1 patch TOPICAL DAILy [facility] Magnesium Hydroxide (Milk Of Magnesia) 30 ml PO DAILY PRN Magnesium Oxide (Mag-Ox 400) 400 mg PO DAILY [facility] Multivitamins/Minerals (Ocuvite) 2 tablet PO DAILY [facility] Psyllium Hydrophilic Mucilloid (Metamucil) 1 packet PO DAILY PRN Senna/Docusate Sodium (Senokot-S, Uma-Colace) 2 tablet PO BID [facility] Home Medications: Ambulatory Orders Medication Instructions Recorded Psychiatric History: No pertinent psych hx Lives: Spouse/ Significant Other Smoking Status: Former smoker Alcohol: None Drugs: None - *Family History Maternal History Items: Heart Disease Paternal History Items: Diabetes Review of Systems Comment: Review of Systems. Constitutional: Reports: Malaise, Weakness, Fatigue. Denies: Fever. Eyes: Denies: Cataracts. HEENT: Denies: Nasal Congestion, Sore Throat. Cardiovascular: Denies: Chest Pain. Respiratory: Denies: Cough, Shortness of Breath. Gastrointestinal: Denies: Constipation, Diarrhea, Nausea, Vomiting. Genitourinary: Denies: Frequency, Hematuria. Musculoskeletal: Reports: Back Pain. Denies: Hand Pain, Leg Pain, Neck Pain. Skin: Reports: Wounds - has draining wound lumbar back. Neurological: Denies: Headaches. Psychiatric: Denies: Anxiety, Depression. Endocrine: Reports: Hx of Irradiation - to the lumbar spine for Non-Hodgkin's Lymphoma.. Denies: Polydipsia, Polyuria. Hematologic/ Lymphatic: Reports: Easy Bruising - patient is on Eliquis.. Denies: Hx of blood clot Patient Problems: Active and Suspected Problems A-fib (Acute) Severe sepsis (Acute) wound sepsis of previous wound (Acute) - Physical Exam General: Alert, Oriented x3 HEENT: PERRLA, EOMI Neck: Supple Lungs: Clear to auscultation Cardiovascular: Regular rate, Regular Rhythm Abdomen: Soft, Non-Distended Extremities: No clubbing, No cyanosis, Edema - in lower extremities. Skin: Ulcer/ Wound - On his lumbar back is a nonhealing draining ulcer. Measures 15 x 6 x 1.5 cm. Some bone seen superiorly. Some exudate present. No purulent drainage noted. Lymphatic: No Cervical, Supraclavicular, or Inguinal Adenopathy Neurological: Cranial nerves II-XII grossly intact Psych/Mental Status: Normal Affect, Appropriate Vital Signs Temp Pulse Resp BP Pulse Ox 97.6 F L 67 18 128/65 H 100 06/24/17 14:44 06/24/17 15:28 06/24/17 14:44 06/24/17 14:44 06/24/17 14:44 Oxygen Flow Rate 2 Oxygen Delivery Method Room Air Weight: 178 lb 5.663 oz Body Mass Index (BMI) 25.4 Intake and Output for Last 24 Hours Intake Total 774.9 / 774.9 1801.0 / 1801.0 945 / 945 Output Total 840 / 840 900 / 900 400 / 400 Balance -65.1 / -65.1 901.0 / 901.0 545 / 545 Microbiology Past 72 Hours 06/21/17 14:30 Blood Culture - Final Blood Culture (Wb) - Other Pasteurella multocida 06/21/17 13:05 Urine Culture - Final Urine Catheter - Garcia Culture exhibits no growth. Assessment/Plan Active and Suspected Problems A-fib (Acute) Severe sepsis (Acute) wound sepsis of previous wound (Acute) Assessment/Plan Assessment: 1. Nonhealing ulcer lumbar back. 2. Late effect radiation lumbar back. 3. History of Non-Hodgkin's Lymphoma. 4. History of microdiscectomy L4-L5 in October,. Plan: Recent wound culture showed Pasteurella multocida. He is on Ceftriaxone. Wound care has been with saline dressing changes. Will change that to half strength Dakin's dressing changes twice a day. Patient needs an operative debridement which would include a partial ostectomy for osteomyelitis. Getting the infection under control is necessary before embarking on wound closure with muscle flaps. With his history of radiation therapy, he wound benefit from HBO treatments. Patient states he is not interested in HBO at this time. His states he has an appointment in [place] on . She will call them to have it moved till next week. There is no back surgeon available here at [facility]. So he would need to have this operative debridement and bone biopsy done at a tertiary center. He has been going to a Plastic Surgeon in [place]. At the time of the muscle flaps, I anticipate the need for chcf IV antibiotics, and a PICC line would be needed. Also anticipate increased metabolic demands from the infection and the debridement surgery and a Prealbumin should be checked. Will need nutritional supplementation with protein to help the healing process. At the time of his operative debridement in [place], a CT or MRI should be done to look for any deeper focus of infection. His cardiac status is decreased as well as his ejection fraction has decreased to about 20% making surgery high risk for this patient and another reason to have it done at a tertiary center. Patient was informed of the risks and complications of the procedure including alternatives to surgery. These were discussed with him personally. He voices understanding and wishes to proceed and understands his surgery would need to be done in [place]. Code Visit Inpatient E AND M: [id number] Init Hosp L2 - ICD-10 - L98.496, T66.xxxS, M79.89, M54.5, Z85.72 06/25/172029 <Electronically signed by Farooq Cook MD> Date Farooq Cook MD Cosigner Signature (if applicable): Date CC: Solitario Poon MD; Dari Oleary MD; Micky Mauro MD; Jonathan Rogers DO; Barrera Mendes D.O.; Ady Dumont DO; Farooq Cook MD; Monica Wick DO; Linus Lindquist DO; Michael Maurer MD; Cisco Bueno MD; Dimas Major MD; López Meyers MD; [facility] Signed URINE SODIUM Collected: 06/25/2017 Status: F Source: [place] 4:[address] [facility] REPOSITORY TYPE CODE TESTS RESULT OUT OF RANGE REFERENCE UNITS LAB L501.5500 Not Establ. mmol/L Normal UR NA 31 Performed By: #### L501.5500 #### [facility] [address] [place], [address] CREATININE, URINE Collected: 06/25/2017 Status: F Source: [place] 4:[address] [facility] REPOSITORY TYPE CODE TESTS RESULT OUT OF RANGE REFERENCE UNITS LAB L502.0300 NO RANGE EST. mg/dL Normal URINE 63.10 CREAT Performed By: #### L502.0300 #### [facility] [address] [place], [address] SPINE LUMBAR Observed: 06/25/2017 Status: F Source: [place] (ROUTINE) 11:[address] [facility] REPOSITORY [facility] Imaging Services [address] [place] [address] Spine Lumbar (Routine) MR#: [id number] Acct: [id number] Name: CUONG MARSHALL Rep #: [id number] : 1945 M 72 From: Juan Foster PCP: Linus Lindquist DO Status: ADM IN Study: Spine Lumbar (Routine) Date of Exam: 06/25/17 Exam# [id number] Ordering Dr: Ady Dumont DO STUDY: MRI LUMBAR SPINE WITHOUT CONTRAST REASON FOR EXAM: Male, 72 years old. back pain, wound infection -- recheck chronic infection low back, large open wound lower back, hx cancer 2002, last surgery lumbar 02/2017,GFR 33. TECHNIQUE: Standardized fat and water weighted pulse sequences were obtained in the sagittal and axial planes. COMPARISON: October 05, 2016 FINDINGS: T12-L1: Normal endplates. Normal disc height, hydration and morphology. Normal bilateral facet joints. Normal central canal and bilateral lateral recesses. Normal bilateral intervertebral neural foramina. Normal lumbar lordosis. There is no substantial scoliosis. Normal conus medullaris that terminates at the L1 . Again noted is a heterogeneous bone marrow signal. L1-2: Normal endplates. Normal disc height, hydration and morphology. Normal bilateral facet joints. Normal central canal and bilateral lateral recesses. Normal bilateral intervertebral neural foramina. L2-3: Normal endplates. Normal disc height, hydration and morphology. Normal bilateral facet joints. Normal central canal and bilateral lateral recesses. Normal bilateral intervertebral neural foramina. L3-4: There is minimal disc space narrowing and endplate spondylosis. There is a minimal disc bulge and facet arthropathy without significant central canal or foraminal stenosis. There is posterior soft tissue changes with soft tissue defect. There are no fluid collections L4-5: There is mild disc space narrowing and endplate spondylosis. There is a mild disc bulge asymmetric to the right with mild right foraminal stenosis. There is no significant central canal or left foraminal stenosis. There is mild facet arthropathy. There is left hemilaminectomy. There is posterior soft tissue changes with soft tissue defect. There are no fluid collections L5-S1: Again noted is a right vertebral destruction at L5 without change since the prior examination. There is now right paracentral T2 hyperintense lobulated structure which measure approximately 2.0 x 1.0 x 3.5 cm. Evaluation is limited without IV contrast. There is resulting in severe lateral recess narrowing. There is moderate central canal stenosis as well. MRI/Spine Lumbar (Routine) IMPRESSION: L5/S1: Right epidural fluid collection. Given the history of infection finding is concerning for epidural abscess. Further evaluation with contrast-enhanced examination can be obtained. N.B. : The above information has been verbally conveyed by Juan Foster MD to Dr. Ady Dumont, [facility] Physician, on 06/25/2017 14:01:13 (ET). Electronically Signed: Juan Foster MD at 13:23 EST Tel , Service support , N.B. : The above information has been verbally conveyed by Juan Foster MD to Dr. Ady Dumont, Covering Physician, on 06/25/2017 14:01:13 (ET). CC: Ady Dumont DO; Linus Lindquist DO Cloth Designer: Signed CONSULTATION Observed: 06/25/2017 Status: F Source: [place] 11:[address] [facility] REPOSITORY [facility] Medical Records Department [address] [place] [address] Consultation 06/25/17 1046 MR#: [id number] Acct: [id number] Name: CUONG MARSHALL Rep #: [id number] : 1945 72 From: Dimas Major MD PCP: Linus Lindquist DO Status: ADM IN Y Location: [place] [address] Problem List (1) Bacteremia Status: Acute Reason for Consult: (+) bcx Consulted by: Dr. Dumont History of Present Illness: The patient is a 72 year old M with h/o NHL and radiation to spine who presented 06/21 with acute onset of weakness, fatigue, confusion. Has had non- healing ulcer on back since microdiscectomy in 2015. He was admitted to [facility] 02/2017 for closure, found to have deep infection requiring debridement and long course of po abx. Came off augmentin just a few weeks ago. Has chronic, unchanged redness/swelling/clear drainage from back. No recent inciting events or contamination of back wound; no cats/dogs in contact with wound. He was taken to ED, bcx and wound sent. Started on vanc/zosyn, changed to cefepime, wound cx and bcx now with pasteurella, and abx narrowed to ceftriaxone. Surgery consulted. He is still not feeling well, but improved compared to admission. at bedside provided most of the history. No n/v/d. Having some leg weakness. Full ROS performed and neg except as noted above. - Medical History Past Medical History (Chronic Problems): Chronic Problems Open wound of lower back (Chronic) with muscle and bone exposed s/p surgical debridement of abscess s/p lumbar spine surgery Chronic ulcer of right leg with fat layer exposed (Chronic) Lumbar disc disease (Chronic) Edema of both legs (Chronic) Leg swelling (Chronic) History of diverticulitis (Chronic) Hyperlipidemia (Chronic) Back pain at L4-L5 level (Chronic) History of non-Hodgkin's lymphoma (Chronic) Hypertension (Chronic) Shortness of breath (Chronic) Hypoxia (Chronic) History of atrial fibrillation (Chronic) Surgical wound dehiscence (Chronic) Renal insufficiency (Chronic) Soft tissue radionecrosis (Chronic) Ulcer of left heel and midfoot with fat layer exposed (Chronic) Decubitus ulcer, heel, right, unstageable (Chronic) Peripheral vascular disease (Chronic) Edema, lower extremity (Chronic) Malnutrition (Chronic) Pressure ulcer, back, lower (Chronic) Ulcer of right foot with fat layer exposed (Chronic) Decubitus ulcer of right foot, unstageable (Chronic) Peripheral vascular disease (Chronic) Ulcer of right lower extremity with fat layer exposed (Chronic) Tinea unguium (Chronic) Allergies/Adverse Reactions: Allergies sulfamethoxazole [From Bactrim] Allergy (Verified 06/21/17 08:58) Other trimethoprim [From Bactrim] Allergy (Verified 06/21/17 08:58) Other prednisone Adverse Reaction (Verified 06/21/17 08:58) Swelling Home Medications: Ambulatory Orders Medication Instructions Recorded - Social History SMOKING STATUS:: Former smoker Vital Signs Temp Pulse Resp BP Pulse Ox 98.1 F 82 18 104/52 L 95 06/25/17 05:26 06/25/17 07:00 06/25/17 05:26 06/25/17 05:26 06/25/17 05:26 Oxygen Flow Rate 2 Oxygen Delivery Method Room Air Weight: 80.5 kg Body Mass Index (BMI) 25.4 Microbiology Past 72 Hours 06/21/17 14:30 Blood Culture - Final Blood Culture (Wb) - Other Pasteurella multocida 06/21/17 13:05 Urine Culture - Final Urine Catheter - Garcia Culture exhibits no growth. Laboratory Tests Past 24 Hrs - Other Studies Radiology: [] reviewed Other Studies: [] Route of nutrition/ use of supplements: [] Nutritional Intake: [] IV Site: [] Garcia Catheter: [] - Physical Exam General: Alert, Cooperative, - - ill appearing HEENT: Atraumatic, PERRLA, EOMI Neck: Supple, No Nodes, - - R neck line Lungs: Clear to auscultation, Normal air movement Cardiovascular: Regular rate, Regular Rhythm, No murmurs Abdomen: Bowel Sounds Present, Soft, Non Tender, Non-Distended Extremities: No edema Skin: Ulcer/ Wound - lumbar spine Musculoskeletal: No Tenderness to Palpation of Joints or Extremities Neurological: Cranial nerves II-XII grossly intact - Assessment/Plan Antibiotics: [] Assessment/Plan: [] Active and Suspected Problems A-fib (Acute) Severe sepsis (Acute) wound sepsis of previous wound (Acute) Severe sepsis (elevated lactate, leukocytosis, tachycardia) due to pasteurella bacteremia from lumbar spine infected ulcer - improved overall, but high concern for deep pocket of infection that will require surgical debridement. Repeat bcx sent. Cont ceftriaxone. I would favor transfer to [facility] for surgery this admission to try and obtain source control prior to placing a picc and starting chcf abx. CKD - stable Thank you, will follow. 06/25/17 1100 <Electronically signed by Dimas Major MD> Date Dimas Major MD Cosigner Signature (if applicable): Date CC: Dari Oleary MD; Micky Mauro MD; Jnoathan Rogers DO; Barrera Mendes D.O.; Farooq Cook MD; Linus Lindquist DO; Dimas Major MD Signed CBC W/DIFF, AUTOMATED Collected: 06/25/2017 Status: F Source: HAN 4:[address] [facility] REPOSITORY TYPE CODE TESTS RESULT OUT OF RANGE REFERENCE UNITS LAB L100.1000 4.4-11.0 K/mm3 Normal WBC 10.4 LAB L100.1200 4.6-6.2 M/mm3 Low RBC 3.39 LAB L100.1300 13.0-16.5 g/dl Low HGB 10.8 LAB L100.1400 40-54 % Low HCT 33.2 LAB L100.1500 80-94 fL High MCV 97.9 LAB L100.1600 27.0-32.0 pg Normal MCH 31.9 LAB L100.1700 32-36 g/gl Normal MCHC 32.5 LAB L100.1810 11.6-14.6 % High RDW CV 15.6 LAB L100.1820 35.1-43.9 fl High RDW SD 55.4 LAB L100.1900 150-450 K/mm3 Normal PLT 308 LAB L100.2000 6.2-12.0 fl Normal MPV 10.3 LAB L100.2100 47-70 % High NEUT% 78.9 LAB L100.2200 19-41 % Low LY% 10.5 LAB L100.2300 0-10 % Normal MONO% 10.0 LAB L100.2400 0-5 % Normal EO% 0.2 LAB L100.2500 0-1 % Normal BASO% 0.1 LAB L100.2550 0.0-0.9 % Normal IM GRAN % 0.300 Result Comment: IG% - Immature Granulocytes (promyelocytes, myelocytes and metamyelocytes) > 1% indicates that a LEFT SHIFT is Present. LAB L100.2620 2.0-7.7 X10 3/uL High Absolute Neut 8.2 LAB L100.2720 0.83-4.51 X10 3/ul Normal Absolute Lymph 1.09 Performed By: #### L100.0100, L100.4425 #### [facility] [address] [place], [place], [id number] NRBC PANEL Collected: 06/25/2017 Status: F Source: HAN 4:[address] [facility] REPOSITORY TYPE CODE TESTS RESULT OUT OF RANGE REFERENCE UNITS LAB L100.4450 0-5 % Normal NRBC, FLAGGED 0.5 LAB L100.4455 0-5 10 3/uL Normal NRBC # 0.05 Performed By: #### L100.0100, L100.4425 #### [facility] [address] [place], [place], [address] BASIC METABOLIC Collected: 06/25/2017 Status: F Source: HAN PROFILE (BMP) 4:[address] [facility] REPOSITORY TYPE CODE TESTS RESULT OUT OF RANGE REFERENCE UNITS LAB L501.0100 74-106 mg/dL Normal GLU 100 Result Comment: Fasting Glucose result from 100 to 125 mg/dL suggests IMPAIRED HOMEOSTASIS per A.D.A. criteria. Please note revised GLUCOSE reference range effective 2017. LAB L501.1000 7-18 mg/dL High BUN 71 LAB L501.1100 0.70-1.30 mg/dL High CREAT,SERUM 2.08 Result Comment: The validity of the calculated GFR AND GFRAA in patients over 70 years has not been determined. Clinical correlation is essential. LAB L501.1110 >60 mL/min Low EST GFR 33 Result Comment: Non- GFR Calc LAB L501.1115 >60 mL/min Low EST GFR - AA 40 Result Comment: GFR Calc LAB L501.1255 ml/min Normal Estimated CRCL 30.60 LAB L501.1300 10-20 RATIO High BUN/CRE 34.1 LAB L501.2200 8.5-10 mg/dL Low .1 CA 8.0 LAB L501.5300 136-14 mmol/L Low 5 NA 135 LAB L501.5600 3.5-5. mmol/L Normal 1 K 3.5 LAB L501.5900 98-107 mmol/L Normal CL 103 LAB L501.6100 21.0-3 mmol/L Normal 2.0 CO2 23.0 LAB L501.6200 5-15 Normal GAP 9 Performed By: #### L500.2500, L501.5200 #### [facility] [address] [place], [place], [address] MAGNESIUM Collected: 06/25/2017 Status: F Source: HAN 4:[address] [facility] REPOSITORY TYPE CODE TESTS RESULT OUT OF RANGE REFERENCE UNITS LAB L501.5200 1.6-2.6 mg/dL Normal MG 2.2 Result Comment: Please note revised Magnesium reference range effective 2017. Performed By: #### L500.2500, L501.5200 #### [facility] [address] [place], [place], [address] HIP 2-3 VIEWS WITH Observed: 06/24/2017 Status: F Source: HAN PELVIS 4:[address] [facility] REPOSITORY [facility] Imaging Services [address] [place] [address] Hip 2-3 Views with Pelvis MR#: [id number] Acct: [id number] Name: CUONG MARSHALL Rep #: [id number] : 1945 M 72 From: Calos Nolan MD PCP: Linus Lindquist DO Status: ADM IN Study: Hip 2-3 Views with Pelvis Date of Exam: 06/24/17 Exam# [id number] Ordering Dr: Ady Dumont DO STUDY: X-RAY - PELVIS AND RIGHT HIP REASON FOR EXAM: Male, 72 years old. Right hip pain TECHNIQUE: Radiological exam, hip, unilateral, with pelvis when performed; 2 or 3 views. COMPARISON: 04/22/2014 FINDINGS: There is a non-specific bowel gas pattern. There are atherosclerotic vascular calcifications of the pelvic arteries. Garcia catheter present. There are degenerative changes of the lumbar spine. Normal bilateral iliac wings, sacroiliac joints and visualized sacrum. Normal bilateral superior and inferior pubic rami. Normal pubic symphysis. Normal bilateral ischial tuberosities. Sclerotic dominant lesion of the right femoral neck/metaphysis with chondroid matrix. Stable appearance since 2013. Normal acetabulum. Normal hip joint. RAD/Hip 2-3 Views with Pelvis IMPRESSION: 1. No fracture or malalignment. 2. 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 Stable since 2013. Electronically Signed: Calos Nolan MD at 20:38 EST , Service support , CC: Ady Dumont DO; Linus Lindquist DO Cloth Designer: Signed 12 LEAD ELECTROCARDIOGRAM Observed: 06/24/2017 Status: F Source: [facility] Cardiovascular Services [address] [place] [address] 12 Lead EKG 06/21/17 0942 MR#: [id number] Acct: [id number] Name: CUONG MARSHALL Rep #: [id number] : 1945 72 From: Sreedhar Caraballo MD Attending Dr: Ady Dumont DO Status: ADM IN Ordering Dr: Jarad Marley MD Date: 06/21/17 Location: [facility] Sex: M C Admitted: 06/21/17 Test Reason : RYTHM CHANGE Blood Pressure : / mmHG Vent. Rate : 116 BPM Atrial Rate : 116 BPM P-R Int : 184 ms QRS Dur : 130 ms QT Int : 314 ms P-R-T Axes : 030 -57 063 degrees QTc Int : 436 ms Sinus tachycardia with Premature atrial complexes Right bundle branch block Left anterior fascicular block Bifascicular block Left ventricular hypertrophy Abnormal ECG Confirmed by SAMMIE HAYES, SREEDHAR ([id number]), scientific editor MENDEZ OSPINA ([id number]) on 06/24/2017 1:08:38 PM Referred By: Sera Haines Confirmed By:SREEDHAR CARABALLO MD 06/24/17 1308 Date Sreedhar Caraballo MD CC: Linus Lindquist DO; Jarad Marley MD Signed 12 LEAD ELECTROCARDIOGRAM Observed: 06/24/2017 Status: F Source: [place] 1:[address] [facility] REPOSITORY [facility] Cardiovascular Services [address] [place] [address] 12 Lead EKG 06/21/17 0912 MR#: [id number] Acct: [id number] Name: CUONG MARSHALL Rep #: [id number] : 1945 72 From: Sreedhar Caraballo MD Attending Dr: Ady Dumont DO Status: ADM IN Ordering Dr: Jarad Marley MD Date: 06/21/17 Location: U Sex: M C Admitted: 06/21/17 Test Reason : ADENOSINE 12 MG Blood Pressure : / mmHG Vent. Rate : 129 BPM Atrial Rate : 129 BPM P-R Int : 170 ms QRS Dur : 130 ms QT Int : 320 ms P-R-T Axes : -16 -61 078 degrees QTc Int : 468 ms Atrial fibrillation Left axis deviation Right nonspecific intraventricular conduction delay Left anterior fascicular block Left ventricular hypertrophy Abnormal ECG Confirmed by SAMMIE HAYES, SREEDHAR ([id number]), scientific editor MENDEZ OSPINA ([id number]) on 06/24/2017 1:08:13 PM Referred By: Sera Haines Confirmed By:SREEDHAR CARABALLO MD 06/24/17 1308 Date Sreedhar Caraballo MD CC: Linus Lindquist DO; Jarad Marley MD Signed Observed: 06/24/2017 Status: F Source: HAN CULTURE, BLOOD (WB) 8:[address] [facility] REPOSITORY Has pt arrived? Y BC No growth in 5 days. Performed By: #### M200.1000 #### [facility] [address] [place], [address] Observed: 06/24/2017 Status: F Source: HAN CULTURE, BLOOD (WB) 8:[address] [facility] REPOSITORY Has pt arrived? Y BC No growth in 5 days. Performed By: #### M200.1000 #### [facility] [address] [place], [address] CONSULTATION Observed: 06/23/2017 Status: F Source: HAN 2:32 PM [facility] REPOSITORY [facility] Medical Records Department [address] [place] [address] Consultation 06/21/17 1329 MR#: [id number] Acct: [id number] Name: CUONG MARSHALL Rep #: [id number] : 1945 72 From: Barrera Mendes DO PCP: Linus Lindquist DO Status: ADM IN Y Location: ICU ICU06-1 ADDENDUM by Cisco Bueno MD on 06/23/17 at 1432 Code Visit Please, disregard my cosigning as it was accidental error to open Dr. Mendes note. Discussed with Radha Fontanez, shift production associate 06/23/17 1432 <Electronically signed by Cisco Bueno MD> Date Cisco Bueno MD cc: Dari Oleary MD; Micky Mauro MD; Jonathan Rogers DO; Barrera Mendes D.O.; Farooq Cook MD; Linus Lindquist DO * Signed <Barrera Mendes - Last Filed: 06/22/17 07:14> Reason for Consult Date of Consultation: 06/21/17 Reason for Consultation: Severe sepsis History of Present Illness: The patient is a 72-year-old male, with a history as outlined below, who presented to the emergency department on June 21 with altered mentation, generalized malaise, SVT and general failure to thrive. Patient's reports that he has been feeling ill for the last several days. The patient has had limited to no p.o. intake over the last several days. The patient's reports that he had a back surgery completed at the [facility] several years ago, which failed to heal appropriately. This past February, the patient underwent debridement of the infected area. He has been following with the wound care center at the [facility] and had cultures obtained last week. The patient's did receive a phone call today indicating that the patient is in fact infected. The patient currently resides at home with his , will receives home health services. The home health nurse reportedly became concerned over the patient's appearance today in the degree of his tachycardia, which prompted his referral to the emergency department for evaluation. Surface echocardiogram from July 2015 revealed evidence of stage II diastolic dysfunction with an ejection fraction of 55%. Right ventricular systolic pressure was estimated to be 38 mmHg. The patient also has a history of paroxysmal atrial fibrillation. In addition, he is a known history of MARY JANE, for which she is noncompliant with the use of his home CPAP. Pulmonary function testing was also completed in June 2015 revealed the presence of a moderate mixed ventilatory defect with a symmetric reduction in diffusing capacity. On presentation to the emergency department, the patient was initially noted to be afebrile, severely tachycardic but hemodynamically stable. The patient was tachypneic but maintaining appropriate oxygen saturations on room air. Laboratory evaluation revealed elevated white blood cell count to 16,000. Chemistry profile revealed evidence of hyponatremia with a sodium of 133. He also has evidence of acute on chronic kidney disease. Serum lactate was elevated at 3.0. Troponin was increased to 0.26 with an elevated BNP to 5000. Plain film chest x-ray revealed a mild degree of pulmonary vascular congestion. 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 It appears that the patient was given 12 mg of adenosine while in the emergency department, which revealed evidence of sinus tachycardia with a rate of 129. At some point he reportedly went into some form of a rapid complex rhythm, which prompted a cardioversion to be performed. There was apparent clinical concern for a CHF exacerbation. Therefore, Lasix was administered. No fluids or antibiotics were administered. The patient was subsequently transferred to the medical intensive care unit, after being started on a Cardizem drip. Orders for a beta-cyndi were also placed. Upon my review of the patient in the intensive care unit, it was readily apparent that the patient was septic. He had a core temperature of 104.3 F. Past Medical History Past Medical History (Chronic Problems): Chronic Problems Open wound of lower back (Chronic) with muscle and bone exposed s/p surgical debridement of abscess s/p lumbar spine surgery Chronic ulcer of right leg with fat layer exposed (Chronic) Lumbar disc disease (Chronic) Edema of both legs (Chronic) Leg swelling (Chronic) History of diverticulitis (Chronic) Hyperlipidemia (Chronic) Back pain at L4-L5 level (Chronic) History of non-Hodgkin's lymphoma (Chronic) Hypertension (Chronic) Shortness of breath (Chronic) Hypoxia (Chronic) History of atrial fibrillation (Chronic) Surgical wound dehiscence (Chronic) Renal insufficiency (Chronic) Soft tissue radionecrosis (Chronic) Ulcer of left heel and midfoot with fat layer exposed (Chronic) Decubitus ulcer, heel, right, unstageable (Chronic) Peripheral vascular disease (Chronic) Edema, lower extremity (Chronic) Malnutrition (Chronic) Pressure ulcer, back, lower (Chronic) Ulcer of right foot with fat layer exposed (Chronic) Decubitus ulcer of right foot, unstageable (Chronic) Peripheral vascular disease (Chronic) Ulcer of right lower extremity with fat layer exposed (Chronic) Tinea unguium (Chronic) Allergies sulfamethoxazole [From Bactrim] Allergy (Verified 06/21/17 08:58) Other trimethoprim [From Bactrim] Allergy (Verified 06/21/17 08:58) Other prednisone Adverse Reaction (Verified 06/21/17 08:58) Swelling Home Medications: Ambulatory Orders Medication Instructions Recorded RX: Ferrous Gluconate 240 mg PO BID 02/05/16 Surgical History: - - The patient underwent partial colectomy for diverticulitis and splenectomy in 2002. Several months later, and ileostomy, which had been performed at the time of the initial surgery, was reversed. Lumbar L4-[address] Sawn at the [facility] on November 02, 2015. Smoking Status: Former smoker - *Family History Maternal History Items: Heart Disease Paternal History Items: Diabetes Review of Systems Constitutional: Reports: Anorexia, Malaise, Weakness, Fatigue Eyes: Denies: Blurred vision, Double vision HEENT: Denies: Head Aches, Sinus Congestion, Sinus Drainage Cardiovascular: Reports: Chest Pain, Palpitations Respiratory: Reports: Shortness of Breath Gastrointestinal: Denies: Abdominal Pain, Nausea, Vomiting Genitourinary: Denies: Dysuria Musculoskeletal: Reports: Back Pain Skin: Denies: Rash, Wounds Neurological: Denies: Numbness, Tingling, Focal weakness Psychiatric: Denies: Anxiety, Depression, Homicidal Ideations, Suicidal Ideations Hematologic/ Lymphatic: Denies: Easy Bruising, Easy Bleeding Patient Problems: Active and Suspected Problems Altered mental status, unspecified (Acute) A-fib (Acute) Sepsis (Acute) Severe sepsis (Acute) wound sepsis of previous wound (Acute) Objective: The patient's most recent lab work, culture data and imaging studies have all been personally reviewed. Urine and blood cultures will be ordered. Will attempt to obtain [facility] medical records regarding his recent wound cultures. - Physical Exam General: Confused, Lethargic, - - Quite ill in appearance. HEENT: Atraumatic, PERRLA, Normocephalic Oral: Dry Mucosa Neck: Supple, No Nodes, Trachea Midline Lungs: Diminished, Rales, Tachypneic Cardiovascular: Normal S1, Normal S2, No murmurs, Tachycardic Abdomen: Bowel Sounds Present, Soft, Non Tender Extremities: No clubbing, No cyanosis, Edema Skin: - - Large lumbar paraspinal ulcer/wound Musculoskeletal: No Tenderness to Palpation of Joints or Extremities Lymphatic: No Cervical, Supraclavicular, or Inguinal Adenopathy Neurological: Neuro grossly intact Vital Signs Temp Pulse Resp BP Pulse Ox 98.3 F 118 H 26 H 117/89 H 97 06/21/17 08:59 06/21/17 12:53 06/21/17 10:52 06/21/17 10:52 06/21/17 10:52 Laboratory Tests Past 24 Hrs Urine Color Pending Urine Clarity Pending Urine pH Pending Ur Specific [place] Pending Urine Protein Pending Urine Glucose (UA) Pending Labs (Last 48 Hours) WBC RBC Hgb Hct MCV MCH MCHC RDW RDW Differential Plt Count WBC RBC Hgb Hct Clinical Impression(s) from Imaging Studies Chest X-Ray 06/21/17 09:01 IMPRESSION: 1. Increasing pulmonary congestion. 2. Mild cardiomegaly. Electronically Signed: Kalie Osipna MD at 9:37 EST , Service support , Brain CT 06/21/17 09:10 IMPRESSION: 1. Chronic involutional changes of the brain. 2. 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 3. No CT evidence of acute intracranial hemorrhage. 4. Possible acute left ethmoid sinus disease. Electronically Signed: Kalie Ospina MD at 10:30 EST , Service support , Assessment/Plan Active and Suspected Problems Altered mental status, unspecified (Acute) A-fib (Acute) Sepsis (Acute) Severe sepsis (Acute) wound sepsis of previous wound (Acute) RECOMMENDATIONS: 1. Provide IV fluid resuscitation 30 cc/kg bolus. 2. Start broad-spectrum antibiotics with vancomycin and Zosyn, pending infectious workup 3. Obtain culture data from [facility] 4. Place central venous catheter 5. Discontinue Cardizem drip and transition to amiodarone infusion. 6. Recheck serum lactate level 7. Continue to trend troponins 8. Cardiology consultation is pending 9. Continue Eliquis 10. Obtain echocardiogram IMPRESSIONS: 1. Severe sepsis secondary to lumbosacral wound / Gram negative bacteremia At this time, the patient will receive bolus supplemental IV fluids per sepsis protocol. We will trend serum lactate level. Broad-spectrum antibiotics have been initiated. Plan to repeat wound and blood cultures. Will fax a record request to the [facility] to obtain the patient's recent bacterial culture data. A central line will be placed given the tenuous nature of the patient's hemodynamics. I highly suspect that the patient's supraventricular tachycardia noted on presentation, was the consequence of underlying sepsis. 2. Metabolic/infectious encephalopathy We will continue to monitor. CT head was already completed. Anticipate improvement in mentation with treatment of the patient's underlying infection. 3. SVT/troponin elevation/heart failure with preserved ejection fraction/history of atrial fibrillation The patient does have a history of paroxysmal atrial fibrillation, for which she is prescribed Eliquis. However, it has been several days since he has taken sudden medication. His last echocardiogram revealed an intact ejection fraction. It does appear, per documentation from the ED, that the patient was in sinus tachycardia upon presentation. Nevertheless, attempts were made in the emergency department to cardiovert the patient. It is my suspicion that his SVT as a consequence of his underlying severe sepsis. Although he initially presented to the ICU on a Cardizem drip, the medication was discontinued and he was transitioned to an amiodarone drip. Cardiology has been consulted. Echocardiogram is pending. Will trend troponins. 4. Acute on chronic kidney disease Likely secondary to #1 and relative hemodynamic instability. Garcia catheter is in place. Will monitor urine output. If the patient's creatinine and/or urine output worsen over the next 24 hours, nephrology will be consulted. As noted above, supplemental IV fluids will be administered. If needed, vasopressor support will be administered to maintain hemodynamic stability. 5. Personal history of mixed ventilatory defect/obstructive sleep apnea/chronic lumbosacral wound/hyperlipidemia Complicates care, management, recovery and prognosis. CPAP can be initiated on a nocturnal basis, pending stability in the patient's clinical state. Wound care nurse has been consulted to see the patient. TIME: 55 minutes of critical care time, independent of procedures, was spent addressing the patient's severe sepsis, complicated lumbosacral room, gram-negative bacteremia, metabolic/infectious cephalopathy, SVT, troponin elevation, acute on chronic kidney disease, review of all data and collaboration with the care team. ([id number]) Code Visit Inpatient E AND M: [id number] Init Hosp L3 <Cisco Bueno - Last Filed: 06/23/17 14:20> Problem List (1) Open wound of lower back Status: Chronic Comment: with muscle and bone exposed s/p surgical debridement of abscess s/p lumbar spine surgery (2) Nonhealing surgical wound Status: Acute Qualifiers: (3) Chronic ulcer of right leg with fat layer exposed Status: Chronic (4) Lumbar disc disease Status: Chronic (5) Edema of both legs Status: Chronic (6) Leg swelling Status: Chronic (7) History of diverticulitis Status: Chronic (8) Hyperlipidemia Status: Chronic (9) Back pain at L4-L5 level Status: Chronic (10) History of non-Hodgkin's lymphoma Status: Chronic (11) Hypertension Status: Chronic (12) Shortness of breath Status: Chronic (13) Hypoxia Status: Chronic (14) History of atrial fibrillation Status: Chronic (15) Hemorrhage of tongue Status: Acute (16) Surgical wound dehiscence Status: Chronic (17) Renal insufficiency Status: Chronic (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 (19) Ulcer of left heel and midfoot with fat layer exposed Status: Chronic (20) Decubitus ulcer, heel, right, unstageable Status: Chronic (21) Peripheral vascular disease Status: Chronic (22) Edema, lower extremity Status: Chronic (23) Malnutrition Status: Chronic Qualifiers: (24) Pressure ulcer, back, lower Status: Chronic (25) Ulcer of right foot with fat layer exposed Status: Chronic (26) Decubitus ulcer of right foot, unstageable Status: Chronic (27) Peripheral vascular disease Status: Chronic (28) Venous insufficiency Status: Suspected (29) Ulcer of right lower extremity with fat layer exposed Status: Chronic (30) Tinea unguium Status: Chronic (31) Confusion Status: Acute (32) Generalized weakness Status: Acute (33) Acute kidney injury superimposed on chronic kidney disease Status: Acute (34) Altered mental status, unspecified Status: Acute Reason for Consult History of Present Illness: The patient is a 72 year old M [] Past Medical History Allergies sulfamethoxazole [From Bactrim] Allergy (Verified 06/21/17 08:58) Other trimethoprim [From Bactrim] Allergy (Verified 06/21/17 08:58) Other prednisone Adverse Reaction (Verified 06/21/17 08:58) Swelling - Physical Exam Vital Signs Temp Pulse Resp BP Pulse Ox 98.3 F 118 H 26 H 117/89 H 97 06/21/17 08:59 06/21/17 12:53 06/21/17 10:52 06/21/17 10:52 06/21/17 10:52 Oxygen Flow Rate 2 Oxygen Delivery Method Nasal Cannula Weight: 175 lb 14.862 oz Laboratory Tests Past 24 Hrs Lactic Acid Pending Troponin I Urine Color Urine Clarity Urine pH Assessment/Plan Neuro: Cardiovascular: Respiratory: Gastrointestinal: Genitourinary: ID: Hematology: Endocrine: Skin: Lines/Tubes: Checklist: Time: 06/22/17 07 <Electronically signed by Barrera Mendes DO> Date Barrera Mendes DO 06/23/17 1430<Electronically signed by Cisco Bueno MD> Cosigner Signature (if applicable): Date Cisco Bueno MD CC: Dari Oleary MD; Micky Mauro MD; Jonathan Rogers DO; Barrera Mendes D.O.; Farooq Cook MD; Linus Lindquist DO Signed SOFT TISSUE NECK Observed: 06/23/2017 Status: F Source: HAN WITHOUT CONTR 1:[address] [facility] REPOSITORY [facility] Imaging Services [address] [place] [address] Soft Tissue Neck without Contr MR#: [id number] Acct: [id number] Name: CUONG MARSHALL Rep #: [id number] : 1945 M 72 From: Otto Renteria MD PCP: Linus Lindquist DO Status: ADM IN Study: Soft Tissue Neck without Contr Date of Exam: 06/23/17 Exam# [id number] Ordering Dr: Cisco Bueno MD STUDY: CT SOFT TISSUE NECK WITHOUT CONTRAST REASON FOR EXAM: Male, 72 years old. Hematoma right sternoclavicular joint. RADIATION DOSAGE (If Supplied By Facility): CTDIvol = ( 19.23 ) mGy, DLP = ( 431.97 ) mGycm TECHNIQUE: The patient was scanned in a multi-detector CT scanner. High resolution transaxial imaging was performed without the administration of intravenous contrast material. Sagittal and coronal images were reconstructed. Individualized dose optimization techniques were used for this CT. COMPARISON: None. FINDINGS: Thickening with fluid distention of the right sternoclavicular joint due to osteoarthropathy. Normal left sternoclavicular joint. Right IJ approach central line catheter in place and the tip is directed down towards the superior vena cava. Normal bilateral parotid glands. Normal bilateral director of premium seat sales spaces. Normal bilateral parapharyngeal spaces. Atherosclerotic calcifications of the distal common carotid arteries extending to the common carotid bifurcations. No suspicious mass in both carotid sheaths. Normal bilateral sublingual and submandibular glands and spaces. Normal visualized nasopharynx. Symmetrical calcifications of both torus tubarius. Normal retropharyngeal space. Normal perivertebral space. Normal visualized bilateral faucial tonsils. The visualized tongue, tongue base and oropharynx are normal. The visualized cervical lymph nodes (levels I-) are within normal size limits, and maintain normal morphology. There is no demonstrated solid or cystic mass lesion. Normal epiglottis, bilateral vallecula and hypopharynx. The pre-epiglottic and paraglottic adipose spaces are normal. Normal visualized bilateral piriform sinuses, aryepiglottic folds, vocal cords, and arytenoid-cricoid articulations. Normal subglottic trachea. Normal bilateral lobes of the thyroid gland. Normal visualized pulmonary apices. Normal visualized paranasal sinuses. Pronounced disc height narrowing at C5-C6 and C6-C7 disc space levels with minimal anterior and posterior marginal spurs. Mild C4-C5 disc space height narrowing. No acute osseous abnormality. CT/Soft Tissue Neck without Contr IMPRESSION: 1. 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 2. No CT evidence of any suspicious mass in the suprahyoid neck and infrahyoid neck. 3. Atherosclerotic calcifications of both carotid arteries, both common carotid bifurcations in both internal carotid arteries. Additional atherosclerotic calcifications of the innominate artery and left subclavian artery. 4. Pronounced degenerative disc space height narrowing at C5-C6 and C6-C7 disc space levels with minimal anterior and posterior marginal spurs. 5. Mild C4-C5 degenerative disc space height narrowing. Electronically Signed: Otto Renteria MD at 15:56 EST , Service support , CC: Linus Lindquist DO; Cisco Bueno MD Cloth Designer: Signed CONSULTATION Observed: 06/23/2017 Status: F Source: [place] 10:[address] [facility] REPOSITORY [facility] Medical Records Department [address] [place] [address] Consultation 06/23/17 1034 MR#: [id number] Acct: [id number] Name: CUONG MARSHALL Rep #: [id number] : 1945 72 From: López Meyers MD PCP: Linus Lindquist DO Status: ADM IN Y Location: ICU ICU06-1 Problem List (1) Severe sepsis Status: Acute (2) Nonhealing surgical wound Status: Acute Qualifiers: Consultation - Renal 06/23/17 PCP/ Referring MD: Requesting physician: [] Primary care physician: Linus Lindquist DO Reason for Consultation:: BRIANA on CKD III a with severe sepsis - History of Present Illness History of Present Illness: The patient is a 72 year old M with multiple comorbidities CKD IIIa secondary to nephrosclerosis and diabetic nephropathy with minimal prolinuria baseline creatinine varies from 1.58-1.81. Last creatinine 1.64 admitted with generalized systemic complaints of headache, thirsty, low urine output and altered mental status found to be in severe sepsis (Fever, tachycardia, tachypnea) and lactic acidosis most probably from wound sepsis due to large lumbar spinal wound with creatine peaked to 2.16 secondary to ischaemia ATN and hemodynamic perturbation with PSVT on acute on CHF r EF 55% stage II diastolic dysfunction with TR and was resuscitated with IVF and arted on IV Zosyn and vancomycin which is changed to cefepime lumbar spinal wound infection.Creatinine stabilized with good UO, Repeat lactic acid is normal. We were consulted for management of BRIANA on CKD III - Allergies Allergies: Allergies sulfamethoxazole [From Bactrim] Allergy (Verified 06/21/17 08:58) Other trimethoprim [From Bactrim] Allergy (Verified 06/21/17 08:58) Other prednisone Adverse Reaction (Verified 06/21/17 08:58) Swelling - Current Medications Current Medications: Current Medications Acetaminophen (Tylenol) 650 mg PO Q6H PRN PRN PRN Reason: pain/fever Amiodarone HCl (Cordarone) 200 mg PO DAILY [facility] Last Admin: 06/22/17 16:40 Dose: 200 mg Apixaban (Eliquis) 2.5 mg PO BID [facility] Last Admin: 06/22/17 21:37 Dose: 2.5 mg Aspirin (Ecotrin) 81 mg PO DAILY@0800 [facility] Last Admin: 06/23/17 08:16 Dose: 81 mg Atorvastatin Calcium (Lipitor) 20 mg PO QHS [facility] Last Admin: 06/22/17 21:37 Dose: 20 mg Chlorhexidine Gluconate () 1 each TOPICAL DAILY [facility] Last Admin: 06/23/17 05:48 Dose: 1 each Famotidine (Pepcid) 20 mg PO DAILY [facility] Last Admin: 06/22/17 10:50 Dose: 20 mg Fentanyl (Duragesic) 25 mcg TRANSDERM. Q3D [facility] Last Admin: 06/22/17 13:52 Dose: 25 mcg Folic Acid (Folic Acid) 1 mg PO QHS [facility] Last Admin: 06/22/17 21:37 Dose: 1 mg Gabapentin (Neurontin) 100 mg PO BIDCM [facility] Last Admin: 06/23/17 08:16 Dose: 100 mg Sodium Chloride () 250 mls @ 15 mls/hr IV .[id number] PRN PRN Reason: SALINE FLUSH Last Admin: 06/22/17 21:38 Dose: 15 mls/hr Sodium Chloride () 250 mls @ 15 mls/hr IV .[id number] PRN PRN Reason: SALINE FLUSH Cefepime HCl 1 gm/ Sodium (Chloride) 50 mls @ 100 mls/hr IV Q12 [facility] Last Admin: 06/22/17 21:37 Dose: 100 mls/hr Magnesium Hydroxide (Milk Of Magnesia) 30 ml PO DAILY PRN PRN PRN Reason: Constipation Magnesium Oxide (Mag-Ox 400) 400 mg PO DAILY [facility] Last Admin: 06/22/17 10:49 Dose: 400 mg Multivitamins/Minerals (Ocuvite) 2 tablet PO DAILY [facility] Last Admin: 06/22/17 10:50 Dose: 2 tablet Psyllium Hydrophilic Mucilloid (Metamucil) 1 packet PO DAILY PRN PRN PRN Reason: CONSTIPATION Senna/Docusate Sodium (Senokot-S, Uma-Colace) 2 tablet PO BID [facility] Last Admin: 06/22/17 21:37 Dose: 2 tablet Sodium Chloride () 5 - 30 ml IV UD PRN PRN Reason: SALINE FLUSH Last Admin: 06/23/17 05:45 Dose: 20 ml - Past Medical History Past Medical History (Chronic Problems): Chronic Problems Open wound of lower back (Chronic) with muscle and bone exposed s/p surgical debridement of abscess s/p lumbar spine surgery Chronic ulcer of right leg with fat layer exposed (Chronic) Lumbar disc disease (Chronic) Edema of both legs (Chronic) Leg swelling (Chronic) History of diverticulitis (Chronic) Hyperlipidemia (Chronic) Back pain at L4-L5 level (Chronic) History of non-Hodgkin's lymphoma (Chronic) Hypertension (Chronic) Shortness of breath (Chronic) Hypoxia (Chronic) History of atrial fibrillation (Chronic) Surgical wound dehiscence (Chronic) Renal insufficiency (Chronic) Soft tissue radionecrosis (Chronic) Ulcer of left heel and midfoot with fat layer exposed (Chronic) Decubitus ulcer, heel, right, unstageable (Chronic) Peripheral vascular disease (Chronic) Edema, lower extremity (Chronic) Malnutrition (Chronic) Pressure ulcer, back, lower (Chronic) Ulcer of right foot with fat layer exposed (Chronic) Decubitus ulcer of right foot, unstageable (Chronic) Peripheral vascular disease (Chronic) Ulcer of right lower extremity with fat layer exposed (Chronic) Tinea unguium (Chronic) - Past Surgical History Surgical History: - - The patient underwent partial colectomy for diverticulitis and splenectomy in 2002. Several months later, and ileostomy, which had been performed at the time of the initial surgery, was reversed. Lumbar L4-[address] Swan at the [facility] on November 02, 2015. - Social History Smoking Status: Former smoker - Family History Maternal History Items: Heart Disease Paternal History Items: Diabetes Review of Systems Constitutional: Reports: Chills Eyes: Reports: Vision Change HEENT: Denies: Head Aches, Sinus Congestion, Sinus Drainage Cardiovascular: Reports: Claudication, Edema, Palpitations Respiratory: Reports: Cough, Shortness of breath upon exertion Gastrointestinal: Reports: Constipation Genitourinary: Denies: Dysuria Musculoskeletal: Denies: Joint Pain, Joint Tenderness Skin: Reports: Wounds - Lumbar wound chronic Neurological: Denies: Numbness, Tingling, Focal weakness Psychiatric: Reports: Anxiety Hematologic/ Lymphatic: Reports: Adenopathy Patient Problems: Active and Suspected Problems Altered mental status, unspecified (Acute) A-fib (Acute) Sepsis (Acute) Severe sepsis (Acute) wound sepsis of previous wound (Acute) - Physical Exam General: Alert, Oriented x3, Cooperative Neck: JVD, Bilateral Lungs: Normal air movement, Rales Cardiovascular: Regular rate Abdomen: Bowel Sounds Present, Soft, Non Tender Musculoskeletal: Muscle Wasting, Tenderness, - - wound Neurological: Motor Exam 5/5 strength throughout Psych/Mental Status: Normal Affect, Appropriate Vital Signs Temp Pulse Resp BP Pulse Ox 97.3 F L 70 17 108/73 100 06/23/17 09:00 06/23/17 09:00 06/23/17 09:00 06/23/17 09:00 06/23/17 09:00 Oxygen Flow Rate 2 Oxygen Delivery Method Room Air Weight: 76.9 kg Body Mass Index (BMI) 25.4 Intake and Output for Last 24 Hours Intake Total 4 / 2034 774.9 / 774.9 879.6 / 879.6 Output Total 450 / 450 840 / 840 375 / 375 Balance 1584 / 1584 -65.1 / -65.1 504.6 / 504.6 Microbiology Past 72 Hours 06/21/17 13:05 Urine Culture - Final Urine Catheter - Garcia Culture exhibits no growth. 06/21/17 13:33 Gram Stain - Final Wound - Other Wound Culture - Final Laboratory Tests Past 24 Hrs WBC 10.8 RBC 3.24 L Hgb 10.3 L Hct 32.1 L MCV 99.1 H MCH 31.8 MCHC 32.1 RDW 16.0 H RDW Differential 58.3 H Assessment/Plan Active and Suspected Problems Altered mental status, unspecified (Acute) A-fib (Acute) Sepsis (Acute) Severe sepsis (Acute) wound sepsis of previous wound (Acute) Non oliguric BRIANA ATN on CKDIIIa BScr 1.6 now 2.16 with good UO and solute plateau-recommend IVF and and hold teetee and ARB Keep MAP>60 and avoid IV contrast- sarted on IV Zosyn and vancomycin which is changed to cefepime. Repeat lactic acid is normal. Recommend dose cefepime on eGFR <30ml/hrs. 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 Lumbar wound infection on abx- agree for debridement HTN tenuous hemodynamics hold all antihypertensive PRN Labetalol if SBP>160 Anemia hold IV iron in setting of infection no role of epo in acute setting DM-2 SSI 06/23/17 1046 <Electronically signed by López Meyers MD> Date López Meyers MD Cosigner Signature (if applicable): Date CC: Dari Oleary MD; Micky Mauro MD; Jonathan Rogers DO; Barrera Mendes D.O.; Farooq Cook MD; Linus Lindquist DO Signed CBC W/DIFF, AUTOMATED Collected: 06/23/2017 Status: F Source: [place] 4:[address] [facility] REPOSITORY TYPE CODE TESTS RESULT OUT OF RANGE REFERENCE UNITS LAB L100.1000 4.4-11.0 K/mm3 Normal WBC 10.8 LAB L100.1200 4.6-6.2 M/mm3 Low RBC 3.24 LAB L100.1300 13.0-16.5 g/dl Low HGB 10.3 LAB L100.1400 40-54 % Low HCT 32.1 LAB L100.1500 80-94 fL High MCV 99.1 LAB L100.1600 27.0-32.0 pg Normal MCH 31.8 LAB L100.1700 32-36 g/gl Normal MCHC 32.1 LAB L100.1810 11.6-14.6 % High RDW CV 16.0 LAB L100.1820 35.1-43.9 fl High RDW SD 58.3 LAB L100.1900 150-450 K/mm3 Normal PLT 241 LAB L100.2000 6.2-12.0 fl Normal MPV 10.2 LAB L100.2100 47-70 % High NEUT% 79.5 LAB L100.2200 19-41 % Low LY% 7.4 LAB L100.2300 0-10 % High MONO% 12.5 LAB L100.2400 0-5 % Normal EO% 0.2 LAB L100.2500 0-1 % Normal BASO% 0.1 LAB L100.2550 0.0-0.9 % Normal IM GRAN % 0.300 Result Comment: IG% - Immature Granulocytes (promyelocytes, myelocytes and metamyelocytes) > 1% indicates that a LEFT SHIFT is Present. LAB L100.2620 2.0-7.7 X10 3/uL High Absolute Neut 8.6 LAB L100.2720 0.83-4.51 X10 3/ul Low Absolute Lymph 0.80 Performed By: #### L100.0100 #### [facility] [address] [place], [place], [id number] COMPREHENSIVE METABOLIC Collected: 06/23/2017 Status: F Source: [facility] 4:[address] [facility] REPOSITORY TYPE CODE TESTS RESULT OUT OF RANGE REFERENCE UNITS LAB L501.0100 74-106 mg/dL Normal GLU 99 Result Comment: Please note revised GLUCOSE reference range effective 2017. LAB L501.1000 7-18 mg/dL High BUN 78 LAB L501.1100 0.70-1.30 mg/dL High CREAT,SERUM 2.16 Result Comment: The validity of the calculated GFR AND GFRAA in patients over 70 years has not been determined. Clinical correlation is essential. LAB L501.1110 >60 mL/min Low EST GFR 32 Result Comment: Non- GFR Calc LAB L501.1115 >60 mL/min Low EST GFR - AA 39 Result Comment: GFR Calc LAB L501.1255 ml/min Normal Estimated CRCL 29.47 LAB L501.1300 10-20 RATIO High BUN/CRE 36.1 LAB L501.1500 6.4-8. g/dL Normal 2 T PROT 7.1 LAB L501.1800 3.2-5. g/dL Low 0 ALB 2.0 LAB L501.1950 2.2-4. g/dL High 2 GLOB 5.1 LAB L501.2000 0.9-2. RATIO Low 4 A/G 0.4 LAB L501.2200 8.5-10 mg/dL Low .1 CA 8.4 LAB L501.4100 15-37 U/L High AST 60 LAB L501.4305 45-117 U/L High ALK P 131 LAB L501.4405 16-61 U/L Normal ALT 33 Result Comment: Please note revised ALT reference range effective 2017. LAB L501.4600 0.20-1.00 mg/dL Normal T BILI 0.50 LAB L501.5300 136-145 mmol/L Normal NA 139 LAB L501.5600 3.5-5.1 mmol/L Normal K 3.5 LAB L501.5900 98-107 mmol/L Normal CL 106 LAB L501.6100 21.0-32.0 mmol/L Normal CO2 24.0 LAB L501.6200 5-15 Normal GAP 9 Performed By: #### L500.4050 #### [facility] [address] [facility] [place], [place], [id number] HEMOGLOBIN A1C Collected: 06/23/2017 Status: F Source: [place] 4:[address] [facility] REPOSITORY TYPE CODE TESTS RESULT OUT OF RANGE REFERENCE UNITS LAB L501.9985 4.2-6.3 % Normal HGB A1C 5.3 Performed By: #### L501.9985 #### [facility] [address] [facility] [place], [place], [address] BEDSIDE GLUCOSE Collected: 06/22/2017 Status: F Source: [place] 6:[address] [facility] REPOSITORY TYPE CODE TESTS RESULT OUT OF REFERENCE UNITS RANGE LAB L501.080 70-110 mg/dL High BEDSIDE GLU 117 Result Comment: MANAGEMENT OF PATIENT CARE PER NURSING PROTOCOL Performed By: #### L501.080 #### [facility] Point of Care [address] [place], [place] [address] CBC-COMPLETE BLOOD CNT Collected: 06/22/2017 Status: F Source: [place] NO DIFF 4:[address] [facility] REPOSITORY TYPE CODE TESTS RESULT OUT OF RANGE REFERENCE UNITS LAB L100.1000 4.4-11.0 K/mm3 High WBC 14.9 LAB L100.1200 4.6-6.2 M/mm3 Low RBC 3.31 LAB L100.1300 13.0-16.5 g/dl Low HGB 10.7 LAB L100.1400 40-54 % Low HCT 32.3 LAB L100.1500 80-94 fL High MCV 97.6 LAB L100.1600 27.0-32.0 pg High MCH 32.3 LAB L100.1700 32-36 g/gl Normal MCHC 33.1 LAB L100.1810 11.6-14.6 % High RDW CV 15.4 LAB L100.1820 35.1-43.9 fl High RDW SD 54.6 LAB L100.1900 150-450 K/mm3 Normal PLT 236 LAB L100.2000 6.2-12.0 fl Normal MPV 9.7 Performed By: #### L100.0500 #### [facility] [address] [place], [place], [address] BASIC METABOLIC Collected: 06/22/2017 Status: F Source: [place] PROFILE (BMP) 4:[address] [facility] REPOSITORY TYPE CODE TESTS RESULT OUT OF RANGE REFERENCE UNITS LAB L501.0100 74-106 mg/dL High GLU 128 Result Comment: Fasting Glucose result greater than or equal to 126 mg/dL suggests DIABETES MELLITUS per A.D.A. criteria. Please note revised GLUCOSE reference range effective 2017. LAB L501.1000 7-18 mg/dL High BUN 70 LAB L501.1100 0.70-1.30 mg/dL High CREAT,SERUM 2.00 Result Comment: The validity of the calculated GFR AND GFRAA in patients over 70 years has not been determined. Clinical correlation is essential. LAB L501.1110 >60 mL/min Low EST GFR 35 Result Comment: Non- GFR Calc LAB L501.1115 >60 mL/min Low EST GFR - AA 42 Result Comment: GFR Calc LAB L501.1255 ml/min Normal Estimated CRCL 31.83 LAB L501.1300 10-20 RATIO High BUN/CRE 35.0 LAB L501.2200 8.5-10 mg/dL Low .1 CA 8.3 LAB L501.5300 136-14 mmol/L Normal 5 NA 137 LAB L501.5600 3.5-5. mmol/L Low 1 K 3.3 LAB L501.5900 98-107 mmol/L Normal CL 103 LAB L501.6100 21.0-3 mmol/L Normal 2.0 CO2 23.0 LAB L501.6200 5-15 Normal GAP 11 Performed By: #### L500.2500 #### [facility] [address] [place], [address] TROPONIN-I Collected: 06/22/2017 Status: F Source: [place] 12:[address] [facility] REPOSITORY Order Comment: 'TROP' Serial specimen #1, #2, #3, or #4: 4 TYPE CODE TESTS RESULT OUT OF RANGE REFERENCE UNITS LAB L501.4010 <0.06 ng/mL High alert 1.00 TROPONIN-I Result Comment: Critical Result(s) Called at: 01:06:21 06/22/2017 by: MELITA Vu TROPONIN-I EXPECTED VALUES <0.05 NEGATIVE 0.06 - 0.59 AT RISK OF DE > OR = 0.60 SUGGEST DE Performed By: #### L501.4010 #### [facility] [address] [place], [place], [address] BEDSIDE GLUCOSE Collected: 06/22/2017 Status: F Source: [place] 12:[address] [facility] REPOSITORY TYPE CODE TESTS RESULT OUT OF REFERENCE UNITS RANGE LAB L501.080 70-110 mg/dL High BEDSIDE GLU 133 Result Comment: MANAGEMENT OF PATIENT CARE PER NURSING PROTOCOL Performed By: #### L501.080 #### [facility] Point of Care [address] [facility] [place] [address] LACTIC ACID Collected: 06/21/2017 Status: F Source: [place] 6:[address] [facility] REPOSITORY Order Comment: Yes/No query for Sepsis Lactate Rule Y TYPE CODE TESTS RESULT OUT OF RANGE REFERENCE UNITS LAB L503.6005 0.4-2.0 mmol/L Normal LACTIC ACID 2.0 Result Comment: Critical Result(s) Called at: 19:51:36 06/21/2017 by: Sadie Natarajan to [facility] Performed By: #### L503.6005 #### [facility] [address] [facility] [facility] [place], [address] TROPONIN-I Collected: 06/21/2017 Status: F Source: [place] 6:05 [facility] REPOSITORY Order Comment: 'TROP' Serial specimen #1, #2, #3, or #4: 3 TYPE CODE TESTS RESULT OUT OF RANGE REFERENCE UNITS LAB L501.4010 <0.06 ng/mL High alert 1.12 TROPONIN-I Result Comment: Critical Result(s) Called at: 19:52:06 06/21/2017 by: Sadie Natarajan to [facility] TROPONIN-I EXPECTED VALUES <0.05 NEGATIVE 0.06 - 0.59 AT RISK OF DE > OR = 0.60 SUGGEST DE Performed By: #### L501.4010 #### [facility] [address] [facility] [place], [address] ECHOCARDIOGRAM COMPLETE Observed: 06/21/2017 Status: F Source: [place] 6:[address] [facility] REPOSITORY [facility] Cardiovascular Services [address] [place] [address] Echo Complete 06/21/17 1326 MR#: [id number] Acct: [id number] Name: CUONG MARSHALL Rep #: [id number] : 1945 72 From: Sreedhar Caraballo MD Attending Dr: Cisco Bueno MD Status: ADM IN Ordering Dr: Cisco Bueno MD Date: 06/21/17 Location: ICU Sex: M C Admitted: 06/21/17 Reason For Study: SOB Procedure This was a 2D Doppler, Color Flow transthoracic echocardiogram. The exam was of fair technical quality due to body positioning. The study was technically difficult. Exam performed portable in ICU/CCU. Left Ventricle Mildly dilated left ventricle. Severe segmental systolic dysfunction (see wall motion). The estimated ejection fraction is 20 %. Unable to assess diastolic dysfunction. Anterio-Basal: Hypokinetic. Infero-Basal: Severely Hypokinetic. Basal inferoseptal: Akinetic. Basal anteroseptal: Severely Hypokinetic. Mid-Anterior : Severely Hypokinetic. Mid-Lateral : Severely Hypokinetic. Mid- Posterior: Akinetic. Mid-Inferior: Akinetic. Mid-inferoseptal : Akinetic. Mid-anteroseptal : Hypokinetic. Anterior [place] : Not visualized. Inferior [place] : Not visualized. Lateral [place] : Not visualized. Septal [place] : Severely Hypokinetic. Right Ventricle Mildly dilated right ventricle. Mild global right ventricular systolic dysfunction. Atria The left atrium is moderately enlarged. The right atrium is mildly enlarged. No doppler evidence for ASD. Mitral Valve There is moderate mitral annular calcification. Extension of the mitral annular calcification onto the mitral valve leaflets with partial restriction. Mild diffuse mitral valve thickening. Moderate focal mitral valve calcification of the anterior leaflet. Moderate (2+) mitral valve insufficiency. Tricuspid Valve Normal tricuspid valve. Mild tricuspid valve insufficiency. Right ventricular systolic pressure estimated to be 41 mmHg. Aortic Valve Trisinus/trileaflet aortic valve. Mild diffuse aortic valve thickening. Moderate focal aortic valve calcification. Aortic sclerosis / mild aortic valve stenosis. Pulmonic Valve Normal pulmonic valve. Trivial pulmonic valve insufficiency. Great Vessels Normal sized aortic root. Calcified aortic root. Pericardium/Pleural No pericardial effusion. MMode/2D Measurements AND Calculations LVIDd: 5.4 cm IVSd: 1.0 cm LVOT diam: 2.0 cm LVIDs: 4.8 cm LVPWd: 1.0 cm LVOT area: 3.2 cm2 FS: 10.8 % Ao root diam: 3.3 cm LAV(MOD-bp): 79.2 ml LA A4 area: 24.5 cm2 LA dimension: 5.8 cm LAV(MOD-bp) Indexed: 39.3 ml/m2 LAV(MOD-sp2): 69.7 ml LAV(MOD-sp4): 77.6 ml RA A4 area: 19.8 cm2 Doppler Measurements AND Calculations MV E max roberto: 85.3 cm/sec Ao V2 max: 125.0 cm/sec LV V1 max: 82.8 cm/sec Ao max P.2 mmHg LV V1 max P.7 mmHg SIGRID(V,D): 2.1 cm2 PA V2 max: 65.6 cm/sec TR max roberto: 287.0 cm/sec TR max P.2 mmHg Interpretation Summary The study was technically difficult. Mildly dilated left ventricle. Severe segmental systolic dysfunction (see wall motion). The estimated ejection fraction is 20 %. Mildly dilated right ventricle. Mild global right ventricular systolic dysfunction. The left atrium is moderately enlarged. The right atrium is mildly enlarged. There is moderate mitral annular calcification. Mild diffuse mitral valve thickening. Moderate focal mitral valve calcification of the anterior leaflet with partial restriction. Moderate (2+) mitral valve insufficiency. Mild tricuspid valve insufficiency. Aortic sclerosis / mild aortic valve stenosis. Trivial pulmonic valve insufficiency. Calcified aortic root. Echolucency c/w ascites. Right ventricular systolic pressure estimated to be 41 mmHg. Unable to assess diastolic dysfunction. Ordering Physician: Cisco Bueno Referring Physician: Linus Lindquist Performed By: Jennifer Hernandes RDCS 06/21/17 1804 Date Sreedhar Caraballo MD CC: Linus Lindquist DO; Cisco Bueno MD Date Dictated: 06/21/17 1326 Date Transcribed: 06/21/171803 Cloth Designer: Signed HISTORY AND PHYSICAL Observed: 06/21/2017 Status: F Source: [place] EXAM 4:[address] [facility] REPOSITORY [facility] Medical Records Department [address] [place] [address] History and Physical 06/21/17 1209 MR#: [id number] Acct: [id number] Name: CUONG MARSHALL Rep #: [id number] : 1945 72 From: Cisco Bueno MD PCP: Linus Lindquist DO Status: ADM IN Y Location: ICU ICU06-1 ADDENDUM by Cisco Bueno MD on 06/21/17 at 1633 Code Visit Discussed with the clinical trials systems administrator, Dr. Mendes. We agree that patient has severe sepsis. Patient on severe sepsis protocol with IV fluid normal saline, and IV Zosyn. He added IV vancomycin. MRSA nasal screen ordered. Discussed with the patient's at the clinical situation. 06/21/17 1633 <Electronically signed by Cisco Bueno MD> Date Cisco Bueno MD cc: Linus Lindquist DO; Cisco Bueno MD * Signed Problem List (1) Open wound of lower back Status: Chronic Comment: with muscle and bone exposed s/p surgical debridement of abscess s/p lumbar spine surgery (2) Nonhealing surgical wound Status: Chronic Qualifiers: (3) Chronic ulcer of right leg with fat layer exposed Status: Chronic (4) Lumbar disc disease Status: Chronic (5) Edema of both legs Status: Chronic (6) Leg swelling Status: Chronic (7) History of diverticulitis Status: Chronic (8) Hyperlipidemia Status: Chronic (9) Back pain at L4-L5 level Status: Chronic (10) History of non-Hodgkin's lymphoma Status: Chronic (11) Hypertension Status: Chronic (12) Shortness of breath Status: Chronic (13) Hypoxia Status: Chronic (14) History of atrial fibrillation Status: Chronic (15) Hemorrhage of tongue Status: Acute (16) Surgical wound dehiscence Status: Chronic (17) Renal insufficiency Status: Chronic (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 (19) Ulcer of left heel and midfoot with fat layer exposed Status: Chronic (20) Decubitus ulcer, heel, right, unstageable Status: Chronic (21) Peripheral vascular disease Status: Chronic (22) Edema, lower extremity Status: Chronic (23) Malnutrition Status: Chronic Qualifiers: (24) Pressure ulcer, back, lower Status: Chronic (25) Ulcer of right foot with fat layer exposed Status: Chronic (26) Decubitus ulcer of right foot, unstageable Status: Chronic (27) Peripheral vascular disease Status: Chronic (28) Venous insufficiency Status: Suspected (29) Ulcer of right lower extremity with fat layer exposed Status: Chronic (30) Tinea unguium Status: Chronic (31) Confusion Status: Acute (32) Generalized weakness Status: Acute (33) Acute kidney injury superimposed on chronic kidney disease Status: Acute (34) Altered mental status, unspecified Status: Acute (35) Severe sepsis Status: Acute (36) wound sepsis of previous wound Status: Acute History of Present Illness Date of Admission: 06/21/17 Chief Complaint: Generalized weakness: Not feeling well since Saturday The patient is a 72 year old M with multiple comorbidities as listed above was sent to ER by home health nurse when patient was not feeling well and generalized systemic complaints of headache, thirsty, low urine output and altered mental status. The EMS EKG shows PSVT at 1 85 bpm, RBBB, LAFB with left axis deviation. In the ER, he was found to have PSVT with heart rate 1 90/min, respiratory rate 40/min. The patient had adenosine 6 mg and then 12 mg IV patient distal sinus tachycardia and then again PSVT and finally was given DC cardioversion 150 under etomidate sedation. Last EKG shows normal sinus rhythm at 73 bpm with QRS duration 136 ms. Patient has history of paroxysmal A. fib and on Eliquis. Chest x-ray shows peribronchial cuffing and mild hilar congestion but overall I feel patient is dehydrated with low urine output. As per the patient and his he has having low urine output, dark yellow in color for last 3-4 days and patient is thirsty.. Patient was given Lasix 40 mg IV in the ER. Started on IV Cardizem drip. Besides that he has large sacral decubitus ulcer covered with slough and has low-grade fever WITH chills at home. He was recommended by wound center, [facility] where he follows for antibiotic. Preliminary blood work shows lactic acid 3.0, creatinine 2.16, BUN 67 again suggestive of dehydration with prerenal azotemia and severe sepsis. Patient has leukocytosis with left shift. ABG done in ER shows 7.51/24/82 on 2 L of oxygen suggestive of respiratory alkalosis most probably from tachypnea. Patient is admitted in ICU. [] Past Medical History Past Medical History (Chronic Problems): Chronic Problems Open wound of lower back (Chronic) with muscle and bone exposed s/p surgical debridement of abscess s/p lumbar spine surgery Nonhealing surgical wound (Chronic) Chronic ulcer of right leg with fat layer exposed (Chronic) Lumbar disc disease (Chronic) Edema of both legs (Chronic) Leg swelling (Chronic) History of diverticulitis (Chronic) Hyperlipidemia (Chronic) Back pain at L4-L5 level (Chronic) History of non-Hodgkin's lymphoma (Chronic) Hypertension (Chronic) Shortness of breath (Chronic) Hypoxia (Chronic) History of atrial fibrillation (Chronic) Surgical wound dehiscence (Chronic) Renal insufficiency (Chronic) Soft tissue radionecrosis (Chronic) Ulcer of left heel and midfoot with fat layer exposed (Chronic) Decubitus ulcer, heel, right, unstageable (Chronic) Peripheral vascular disease (Chronic) Edema, lower extremity (Chronic) Malnutrition (Chronic) Pressure ulcer, back, lower (Chronic) Ulcer of right foot with fat layer exposed (Chronic) Decubitus ulcer of right foot, unstageable (Chronic) Peripheral vascular disease (Chronic) Ulcer of right lower extremity with fat layer exposed (Chronic) Tinea unguium (Chronic) Allergies sulfamethoxazole [From Bactrim] Allergy (Verified 06/21/17 08:58) Other trimethoprim [From Bactrim] Allergy (Verified 06/21/17 08:58) Other prednisone Adverse Reaction (Verified 06/21/17 08:58) Swelling Home Medications: Ambulatory Orders Medication Instructions Recorded Surgical History: - - The patient underwent partial colectomy for diverticulitis and splenectomy in 2002. Several months later, and ileostomy, which had been performed at the time of the initial surgery, was reversed. Lumbar L4-[address] Swan at the [facility] on November 02, 2015. Smoking Status: Former smoker - *Family History Maternal History Items: Heart Disease Paternal History Items: Diabetes Review of Systems Constitutional: Reports: Anorexia, Chills, Fever HEENT: Denies: Head Aches, Sinus Congestion, Sinus Drainage Cardiovascular: Denies: Chest Pain, Palpitations Respiratory: Reports: Shortness of Breath, Shortness of breath at rest. Denies: Cough, Sputum production Gastrointestinal: Denies: Abdominal Pain, Nausea, Vomiting Genitourinary: Denies: Dysuria Musculoskeletal: Reports: Joint Pain. Denies: Joint Tenderness Skin: Reports: Skin Changes, Wounds. Denies: Rash Neurological: Reports: Balance problems. Denies: Focal weakness, Numbness, Tingling Psychiatric: Denies: Anxiety, Depression, Homicidal Ideations, Suicidal Ideations Hematologic/ Lymphatic: Denies: Easy Bruising, Easy Bleeding VTE Information - Inpt Only VTE Present on Admission: No VTE Mechan Device Prophylaxis: SCD's VTE Pharm Prophylaxis ordered?: Yes Patient Problems: Active and Suspected Problems Altered mental status, unspecified (Acute) A-fib (Acute) Sepsis (Acute) Severe sepsis (Acute) wound sepsis of previous wound (Acute) - Physical Exam General: Cooperative, Confused, Disoriented, Lethargic HEENT: Atraumatic, PERRLA, EOMI, Normocephalic Oral: Dry Mucosa Neck: Supple, No JVD, Negative Carotid Bruits Lungs: Diminished - In right lung base mainly due to right hemidiaphragm elevation, Short of Breath Cardiovascular: Regular rate, Regular Rhythm, Normal S1, Normal S2, No murmurs Abdomen: Bowel Sounds Present, Soft, Non Tender, Non-Distended Extremities: No edema, Capillary Refill Less than 3 Seconds Skin: No rashes, Ulcer/ Wound - Large deep sacral decubitus with floor covered with slough in sacral region about 15 cm, most probably stage IV Musculoskeletal: No Tenderness to Palpation of Joints or Extremities, Arthritic Changes, Muscle Wasting Neurological: Cranial nerves II-XII grossly intact Psych/Mental Status: Normal Affect, Appropriate Vital Signs Temp Pulse Resp BP Pulse Ox 98.3 F 114 H 26 H 117/89 H 97 06/21/17 08:59 06/21/17 10:52 06/21/17 10:52 06/21/17 10:52 06/21/17 10:52 Assessment/Plan Active and Suspected Problems Altered mental status, unspecified (Acute) A-fib (Acute) Sepsis (Acute) Severe sepsis (Acute) wound sepsis of previous wound (Acute) The patient is a 72 year old M with multiple comorbidities as listed above was sent to ER by home health nurse when patient was not feeling well and generalized systemic complaints of headache, thirsty, low urine output and altered mental status. The EMS EKG shows PSVT at 1 85 bpm, RBBB, LAFB with left axis deviation. In the ER, he was found to have PSVT with heart rate 1 90/min, respiratory rate 40/min. The patient had adenosine 6 mg and then 12 mg IV patient distal sinus tachycardia and then again PSVT and finally was given DC cardioversion 150 under etomidate sedation. Last EKG shows normal sinus rhythm at 73 bpm with QRS duration 136 ms. Patient has history of paroxysmal A. fib and on Eliquis. Chest x-ray shows peribronchial cuffing and mild hilar congestion but overall I feel patient is dehydrated with low urine output. As per the patient and his he has having low urine output, dark yellow in color for last 3-4 days and patient is thirsty.. Patient was given Lasix 40 mg IV in the ER. Started on IV Cardizem drip. Besides that he has large sacral decubitus ulcer covered with slough and has low-grade fever WITH chills at home. He was recommended by wound center, [facility] where he follows for antibiotic. Preliminary blood work shows lactic acid 3.0, creatinine 2.16, BUN 67 again suggestive of dehydration with prerenal azotemia. Patient has leukocytosis with left shift. ABG done in ER shows 7.51/24/82 on 2 L of oxygen suggestive of respiratory alkalosis most probably from tachypnea. Patient is admitted in ICU. 1. Narrow complex tachycardia, PSVT converted to normal sinus rhythm: Baseline arrhythmia of paroxysmal A. fib on Eliquis. Currently, normal sinus rhythm. Patient received Lovenox 1 mg/kg body weight 1 dose in ER. Continue Eliquis 2.5 mg twice daily. On IV Cardizem drip tapered down. On metoprolol, increased to 25 mg twice daily. Repeat 2D echo. Analytical Strategist consulted. Shell Mold Bonding Machine Operator consulted. Cycle cardiac enzymes. Chronic diastolic heart failure: Patient had last echo in July 2015 and reported as EF 55% with moderate to stage II diastolic dysfunction. No regional wall motion abnormalities. Left atrium mildly enlarged. Normal right atrium. Mildly dilated right ventricle with mild global right ventricular systolic dysfunction. Mild TR, RVSP 38 mmHg. Mild diffuse aortic valve calcification, aortic sclerosis but no stenosis. 2. Acute encephalopathy probably has baseline mild cognitive impairment/dementia with generalized weakness: Most rarely patient has acute encephalopathy due to metabolic encephalopathy/infectious encephalopathy. IV fluid normal saline. Treat the underlying cause. 3. Severe sepsis (Fever, tachycardia, tachypnea) and lactic acidosis most probably from wound sepsis due to large sacral wound covered with slough, from previous surgery present on admission chronic in nature, probably stage IV: Wound care nurse and plastic surgeon consulted. Started on IV Zosyn. Needs wound debridement. Nutritional support. 4. Acute kidney injury on CKD stage III, multiple etiology including prerenal/ATN from sepsis: Patient baseline creatinine varies from 1.58-1.81. Last creatinine 1.May 1.64. Currently 2.16. Major strict input and output. Consult [place] [facility]. 5. Severe protein calorie malnutrition: As per the patient's , his body weight was 225 pound last summer, 2017 currently 175. Lost about 50 pounds in last 7-8 months. Pre-albumin, CRP ordered. Patient is consulted. Low albumin 1.6 in October 2016. 6. Diabetes mellitus type 2 with uncontrolled hyperglycemia: Patient glucose is 143. To check before meals and at bedtime cover with NovoLog sliding scale. A1c tomorrow a.m. 7. Multiple comorbidities including chronic diastolic heart failure, lumbar disc disease, chronic venous insufficiency, peripheral vascular disease, history of decubitus ulcer of right foot in the past, dyslipidemia, history of diverticulitis: Multiple comorbidities complicates the present care. Guarded prognosis. Advanced directive: Discussed with the patient . Patient does not have living will/advanced directive. Patient and at great they do not want artificial life support/CPR in irreversible stage. Needs further discussion with the palliative care to help with further details of nutritional support. Total time 17 minutes spent in discussion regarding details of advanced directive including vasopressor, central line, feeding support. Second time, this was again discussed with the patient and his brother and they want full code for now. Clinical Impression(s) from Imaging Studies Chest X-Ray 06/21/17 09:01 IMPRESSION: 1. Increasing pulmonary congestion. 2. Mild cardiomegaly. Electronically Signed: Kalie Ospina MD at 9:37 EST , Service support , Brain CT 06/21/17 09:10 IMPRESSION: 1. Chronic involutional changes of the brain. 2. 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 3. No CT evidence of acute intracranial hemorrhage. 4. Possible acute left ethmoid sinus disease. Laboratory Results 06/21/17 09:05: WBC 15.8 H, RBC 3.93 L, Hgb 12.9 L, Hct 38.7 L, MCV 98.5 H, MCH 32.8 H, MCHC 33.3, RDW 15.6 H, RDW Differential 56.2 H, Plt Count 286, MPV 10.0, Immature Gran % (Auto) 0.300, Neut % (Auto) 89.4 H, Lymph % (Auto) 5.5 L, [place] % (Auto) 4.7, Eos % (Auto) 0.0, Baso % (Auto) 0.1, Absolute Neuts (auto) 14.2 H, Absolute Lymphs (auto) 0.87, Total Counted Not Reportable 06/21/17 09:05: Sodium 133 L, Potassium 4.4, Chloride 99, Carbon Dioxide 21.0, Anion Gap 13, BUN 67 H, Creatinine 2.16 H, Estim Creat Clear Calc 33.43, Est GFR (MDRD) Af Amer 39 L, Est GFR (MDRD) Non-Af 32 L, BUN/Creatinine Ratio 31.0 H, Glucose 143 H, Calcium 9.5, Troponin I 0.26 H 06/21/17 09:05: B-Natriuretic Peptide > 5000.0 H 06/21/17 09:13: Lactic Acid 3.0 H 06/21/17 09:38: Specimen Type ART, Sample Site R Radial, pH 7.51 H, Bicarbonate Actual 19.1 L, POC Total CO2 20, Base Excess -4 L, O2 Saturation 97, ABG pCO2 24.1 L, ABG pO2 82, Werner Test POS, O2 Delivery Device Nasal Can, Liter Flow 2.0, Blood Gas Notified Whom ED , Blood Gas Notified Time 933 Code Visit Inpatient E AND M: 56100 Init Hosp L3 Procedures: 44402 Advncd Care Plan 30 Min 06/21/17 1456 <Electronically signed by Cisco Bueno MD> Date Cisco Bueno MD Cosigner Signature: Date (if applicable) CC: Linus Lindquist DO; Cisco Bueno MD Signed PROTHROMBIN TIME W/INR Collected: 06/21/2017 Status: F Source: [facility] 4:[address] [facility] REPOSITORY TYPE CODE TESTS RESULT OUT OF RANGE REFERENCE UNITS LAB L300.4150 11.7-14.9 SECONDS High PROTIME 21.1 LAB L300.4200 Normal INR 1.9 Performed By: #### L300.3900, L300.4310 #### [facility] [place], [address] PARTIAL THROMBOPLAST Collected: 06/21/2017 Status: F Source: [facility] TIME 4:[address] [facility] REPOSITORY TYPE CODE TESTS RESULT OUT OF REFERENCE UNITS RANGE LAB L300.4310 24.1-36.2 Seconds High PTT 49.1 Performed By: #### L300.3900, L300.4310 #### [facility] [address] [place], [address] Observed: 06/21/2017 Status: F Source: [place] CULTURE, BLOOD (WB) 3:[address] [facility] REPOSITORY Has pt arrived? Y BC No growth in 5 days. Performed By: #### M200.1000 #### [facility] [address] [place], [address] Observed: 06/21/2017 Status: F Source: [place] RESPIRATORY PANEL 3:[address] [facility] MOLECULAR REPOSITORY RP PANEL ADENOVIRUS Not Detected HUMAN METAPHNEUMO Not Detected INFLUENZA A Not Detected INFLUENZA A (SUBTYPE H1) Not Detected INFLUENZA A (SUBTYPE H3) Not Detected INFLUENZA B Not Detected PARAINFLUENZA 1 Not Detected PARAINFLUENZA 2 Not Detected PARAINFLUENZA 3 Not Detected PARAINFLUENZA 4 Not Detected RHINOVIRUS Not Detected RSV A Not Detected RSV B Not Detected NAAT METHOD Testing was performed using nucleic acid amplification Performed By: #### M100.638 #### [facility] [address] [place] [address], [id number] OPERATIVE REPORT Observed: 06/21/2017 Status: F Source: [place] 2:[address] [facility] REPOSITORY [facility] Medical Records Department [address] [place] [address] Operative Report 06/21/17 1440 MR#: [id number] Acct: [id number] Name: CUONG MARSHALL Rep #: [id number] : 1945 72 From: Abbey SPICER PCP: Linus Lindquist DO Status: ADM IN Y Location: ICU ICU06-1 Problem List (1) Sepsis Status: Acute Operative Report Date of Procedure: 06/21/17 - TLC cath insertion Central line placement procedure note Indication: IV access/hemodynamic instability/vasoactive medications Procedure: A time-out was completed to verify correct patient, indication, medication allergies, procedure, coagulation studies, informed consent signed, and equipment needed. The patient was placed in the supine position for a central line placement to the rt IJ vein. The patients rt neck was prepped using chlorhexidine and a full body sterile drape was applied. 1% lidocaine was used to anesthetize the surrounding skin. A 7fr 16 cm blue guard triple lumen catheter introduced into the internal jugular vein using the modified Seldinger technique with the assistance of ultrasound. The catheter was threaded smoothly over the guidewire, the guidewire was removed easily, nonpulsatile blood returned. All ports were aspirated of air and flushed with sterile saline. The catheter was sutured in place and covered with an occlusive dressing impregnated with chlorhexidine. Post-procedure: The patient tolerated the procedure well. Vital signs remained stable. EBL 3 cc. No complications. Chest X Ray ordered to confirm tip placement and the absence of pneumothorax. 06/21/17 1443 <Electronically signed by Abbey SPICER> Date Abbey SPICER CC: Abbey Pina; Micky Mauro MD; Barrera Mendes D.O.; Linus Lindquist DO Signed CXR FOR LINE PLACEMENT Observed: 06/21/2017 Status: F Source: [place] 2:[address] [facility] REPOSITORY [facility] Imaging Services [address] [place] [address] CXR for Line Placement MR#: [id number] Acct: [id number] Name: CUONG MARSHALL Rep #: [id number] : 1945 M 72 From: Kalie Ospina MD PCP: Linus Lindquist DO Status: ADM IN Study: CXR for Line Placement Date of Exam: 06/21/17 Exam# [id number] Ordering Dr: Barrera Mendes DO STUDY: X-RAY CHEST REASON FOR EXAM: Male, 72 years old. Right-sided central line placement. TECHNIQUE: Single AP portable view of the chest. COMPARISON: June 21, 2017 time stamped 9:17 AM. FINDINGS: Right-sided central line is present in the internal jugular vein and the tip of the catheter is in the superior vena cava. Cardiac monitoring leads are present. There is moderate elevation of the right hemidiaphragm. There are prominent bronchovascular markings. There are questionable interstitial consolidations. Left lung is expanded. There is no demonstrated pleural abnormality. There is mild cardiac enlargement. There are calcified mediastinal and hilar lymph nodes. Normal visualized pulmonary arteries. There is atherosclerotic calcification of the aortic arch with tortuosity. There are diffuse degenerative changes of the visualized thoracic spine. Normal visualized ribs, clavicles, and shoulders. There is no demonstrated abnormality of the visualized soft tissue structures of the upper abdomen. RAD/CXR for Line Placement IMPRESSION: 1. Mild cardiomegaly and pulmonary congestion. 2. Appropriate positioning of right-sided central line without evidence for pneumothorax. Electronically Signed: Kalie Ospina MD at 15:10 EST , Service support , CC: Barrera Mendes D.O.; Linus Lindquist DO Cloth Designer: Signed CONSULTATION Observed: 06/21/2017 Status: F Source: [place] 2:[address] [facility] REPOSITORY [facility] Medical Records Department [address] [place] [address] Consultation 06/21/17 1421 MR#: [id number] Acct: [id number] Name: CUONG MARSHALL Rep #: [id number] : 1945 72 From: Solitario Poon MD PCP: Linus Lindquist DO Status: ADM IN Y Location: ICU ICU06-1 Problem List (1) A-fib Status: Acute Reason for Consult Date of Consultation: 06/21/17 History of Present Illness: The patient is a 72 year old M who was brought to the emergency room as the home health nurse noted him to be tachycardic. He was noted to have altered mental status. In the emergency room, the patient was apparently noted to have narrow complex tachycardia with a heart rate of more than 180. According to the ER physician notes, he received 12 mg of adenosine which showed underlying rhythm to be normal sinus rhythm. In the emergency room, the patient also had attempted electrical cardioversion done. He was then started on a diltiazem infusion which slowed his heart rate down. Presently his heart rate is ranging between 100-1 20 bpm. Graft patient denies any chest pains. According to him, he has history of atrial fibrillation in the past. Patient has a chronic wound on his back. He was culture positive and has been started on antibiotics for that. Intensive care unit has seen the patient and thinks that the patient may be septic. Patient appears distressed and is not able to give a detailed history. [] Past Medical History Allergies/Adverse Reactions: Allergies sulfamethoxazole [From Bactrim] Allergy (Verified 06/21/17 08:58) Other trimethoprim [From Bactrim] Allergy (Verified 06/21/17 08:58) Other prednisone Adverse Reaction (Verified 06/21/17 08:58) Swelling Home Medications: Ambulatory Orders Medication Instructions Recorded Past Medical History (Chronic Problems): Chronic Problems Open wound of lower back (Chronic) with muscle and bone exposed s/p surgical debridement of abscess s/p lumbar spine surgery Nonhealing surgical wound (Chronic) Chronic ulcer of right leg with fat layer exposed (Chronic) Lumbar disc disease (Chronic) Edema of both legs (Chronic) Leg swelling (Chronic) History of diverticulitis (Chronic) Hyperlipidemia (Chronic) Back pain at L4-L5 level (Chronic) History of non-Hodgkin's lymphoma (Chronic) Hypertension (Chronic) Shortness of breath (Chronic) Hypoxia (Chronic) History of atrial fibrillation (Chronic) Surgical wound dehiscence (Chronic) Renal insufficiency (Chronic) Soft tissue radionecrosis (Chronic) Ulcer of left heel and midfoot with fat layer exposed (Chronic) Decubitus ulcer, heel, right, unstageable (Chronic) Peripheral vascular disease (Chronic) Edema, lower extremity (Chronic) Malnutrition (Chronic) Pressure ulcer, back, lower (Chronic) Ulcer of right foot with fat layer exposed (Chronic) Decubitus ulcer of right foot, unstageable (Chronic) Peripheral vascular disease (Chronic) Ulcer of right lower extremity with fat layer exposed (Chronic) Tinea unguium (Chronic) Surgical History: - - The patient underwent partial colectomy for diverticulitis and splenectomy in 2002. Several months later, and ileostomy, which had been performed at the time of the initial surgery, was reversed. Lumbar L4-[address] Swan at the [facility] on November 02, 2015. - *Family History Maternal History Items: Heart Disease Paternal History Items: Diabetes Smoking Status: Former smoker Review of Systems - Review of Systems Cardiovascular: Reports: Shortness of Breath. Denies: Chest Discomfort, Chest Discomfort at Rest Skin: Reports: - - Wound on the back Subjectve: Lying flat in the bed. Complaining of back pain. Objective: Vital Signs Temp Pulse Resp BP Pulse Ox 98.3 F 118 H 26 H 117/89 H 97 06/21/17 08:59 06/21/17 12:53 06/21/17 10:52 06/21/17 10:52 06/21/17 10:52 Oxygen Flow Rate 2 Oxygen Delivery Method Nasal Cannula General: Awake, Alert, Cooperative, Ill Appearing HEENT: Atraumatic Oral: Dry Mucosa Neck: Supple Lungs: Clear to auscultation Cardiovascular: Regular Rhythm, Normal S1, Normal S2 Abdomen: Bowel Sounds Present, Soft Neurological: - - Awake. Alert. Oriented. Psych/Mental Status: - 06/21/17 13:05: Urine Color Marlyn, Urine Clarity Turbid, Urine pH 5.0, Ur Specific [place] 1.015, Urine Protein 100 H, Urine Glucose (UA) Normal, Urine Ketones Negative, Urine Occult Blood 250 H, Urine Nitrite Negative, Urine Bilirubin Negative, Urine Urobilinogen Normal, Ur Leukocyte Esterase 100 H Presently this tachycardia. EKGs revealed atrial flutter/fibrillation with rapid ventricular response Assessment/Plan 1. Atrial fibrillation with rapid ventricular response. Presently normal sinus rhythm. Patient has been ordered for an amiodarone infusion. Agree. Patient on Eliquis for anticoagulation at home continue 2. Possible sepsis next 3. Large ulcer on the back 4. Elevated P. Will review echo. 06/21/17 1432 <Electronically signed by Solitario Poon MD> Date Solitario Poon MD Cosigner Signature (if applicable): Date CC: Micky Mauro MD; Barrera Mendes D.O.; Linus Lindquist DO Signed Observed: 06/21/2017 Status: F Source: [place] CULTURE, BLOOD (WB) 2:[address] [facility] REPOSITORY Has pt arrived? Y BC POSITIVE BLOOD CULTURE. AEROBIC AND ANAEROBIC BOTTLE GRAM STAIN = GRAM NEGATIVE RODS. CRITICAL VALUE VERIFIED. CALLED TO ALEX BROWN 06/22/17 0310 Melita Chisholm. RESULTS READ BACK BY SAME . ORGANISM 1: Pasteurella multocida Amount Growth Growth Pasteurella multocida: REACTION Ceftazidime *NF <=1 S Ceftriaxone $ <=1 S Ciprofloxacin $ <=0.25 S Gentamicin $ 4 S Imipenem *NF <=0.25 S Levofloxacin $ <=0.12 S Piperacillin/Tazobactam $$ <=4 S Tobramycin $ <=1 S Trimethoprim/Sulfametho $ <=20 S (NF) indicates non-formulary drug at [facility]. Approval by Infectious Disease Specialist required before non-formulary drugs may be ordered and/or dispensed. Performed By: #### M200.1000 #### [facility] [address] [place], [place], [address] TROPONIN-I Collected: 06/21/2017 Status: F Source: [place] 2:[address] [facility] REPOSITORY Order Comment: 'TROP' Serial specimen #1, #2, #3, or #4: 2 TYPE CODE TESTS RESULT OUT OF RANGE REFERENCE UNITS LAB L501.4010 <0.06 ng/mL High alert 0.71 TROPONIN-I Result Comment: Critical Result(s) Called at: 14:51:14 06/21/2017 by: Kingsley Carrasco TO NURSE ELLIOTT TROPONIN-I EXPECTED VALUES <0.05 NEGATIVE 0.06 - 0.59 AT RISK OF DE > OR = 0.60 SUGGEST DE Performed By: #### L501.4010 #### [facility] [address] [place], [place], [address] LACTIC ACID Collected: 06/21/2017 Status: F Source: [place] 2:[address] [facility] REPOSITORY Order Comment: Yes/No query for Sepsis Lactate Rule Y TYPE CODE TESTS RESULT OUT OF REFERENCE UNITS RANGE LAB L503.6005 0.4-2.0 mmol/L High LACTIC ACID 2.8 Result Comment: Critical Result(s) Called at: 14:56:00 06/21/2017 by: Kingsley ARENAS Performed By: #### L503.6005 #### [facility] [address] [place], [address] MRSA WOUND DNA BY Collected: 06/21/2017 Status: F Source: [place] PCR 1:[address] [facility] REPOSITORY TYPE CODE TESTS RESULT OUT OF RANGE REFERENCE UNITS LAB L8200.1100 Negative Normal MRSA Negative RESULT LAB L8200.1150 Negative Normal SA RESULT NEGATIVE Performed By: #### L8200.1075 #### [facility] [address] [place], [address] Observed: 06/21/2017 Status: F Source: [place] CULTURE, WOUND 1:[address] [facility] REPOS[facility]ORY Comments: lumbar wound Gram Stain Gram Stain 2+ White Blood Cells Very Rare Gram negative rods Wound Culture ORGANISM 1: Pasteurella multocida Amount Growth 2+ Pasteurella multocida: REACTION Ceftazidime *NF <=1 S Ceftriaxone $ <=1 S Ciprofloxacin $ 0.5 S Gentamicin $ <=1 S Imipenem *NF <=0.25 S Levofloxacin $ <=0.12 S Piperacillin/Tazobactam $$ <=4 S Tobramycin $ <=1 S Trimethoprim/Sulfametho $ <=20 S (NF) indicates non-formulary drug at [facility]. Approval by Infectious Disease Specialist required before non-formulary drugs may be ordered and/or dispensed. Performed By: #### M100.1400 #### [facility] [address] [place], [place], [address] URINALYSIS, ROUTINE Collected: 06/21/2017 Status: F Source: [place] (DIPSTICK) 1:[address] [facility] REPOSITORY Order Comment: Diagnosis: GARCIA COLOR OF URINE MAY AFFECT DIPSTICK RESULTS. How was Urine Obtained? SHOWER DOORS AND PANELS FABRICATOR TO SPECIFY TYPE CODE TESTS RESULT OUT OF RANGE REFERENCE UNITS LAB L400.3000 Yellow COLOR Normal Marlyn LAB L400.3050 Clear Normal CLARITY Turbid LAB L400.3200 Normal mg/dl Normal GLUCOSE, UR Normal LAB L400.3300 Negative mg/dL Normal BILIRUBIN URINE Negative LAB L400.3400 Negative mg/dl Normal KETONE UR Negative LAB L400.3465 1.002-1.030 Normal SP.GR. DIPSTX 1.015 LAB L400.3550 5.0 - 8.0 pH UR Normal 5.0 LAB L400.3600 Negative mg/dl High PROT DIPSTX 100 LAB L400.3700 Normal mg/dl Normal UROBILI Normal LAB L400.3750 Negative Normal NITRITE UR Negative LAB L400.3780 Negative /ul High OCCULT BLOOD-UR 250 LAB L400.3800 Negative /ul High LEUK ESTERASE 100 Performed By: #### L400.2011 #### [facility] [address] [place] [address], [address] M R STAPH AUREUS Collected: 06/21/2017 Status: F Source: [place] DNA BY PCR 1:05 PM [facility] TYPE CODE TESTS RESULT OUT OF RANGE REFERENCE UNITS LAB L8200.1100 Negative Normal MRSA Negative RESULT Performed By: #### L8200.1000 #### [place] [address] [facility] [address] Observed: 06/21/2017 Status: F Source: [place] CULTURE, URINE 1:[address] [facility] REPOSITORY Urine Culture Culture exhibits no growth. Performed By: #### M100.0650 #### [facility] [address] [place] [address], [address] EMERGENCY DEPARTMENT Observed: 06/21/2017 Status: F Source: [place] SUMMARY 10:[address] [facility] REPOSITORY [facility] Medical Records Department [address] [place] [address] Emergency Department Summary 06/21/17 0957 MR#: [id number] Acct: [id number] Name: CUONG MARSHALL Rep #: [id number] : 1945 72 From: Jarad Marley MD PCP: Linus Lindquist DO Status: REG ER - ER Visit Summary Date of Service: 06/21/17 Chief Complaint: Not doing well per paramedics, patient and History of Present Illness: The patient is a 72 M who has altered level of consciousness and is not a good informant secondary to acuity/serious of illness. Patient is not alert and he is not oriented to day or month. Only complaint is bad headache. The facial droop according to is new. Patient denies any cardiac respiratory symptoms in spite of a heart rate of 190 and breathing 40 times a minute. He does not appear well. Capillary refill is normal; however, he has acrocyanosis of his upper and lower digits. History is very limited other than not doing well. According to brother he has not done well since back surgery 3 years ago. View of old records he has history of hypercholesterolemia, lymphedema, paroxysmal A. fib, lymphoma, renal insufficiency, peripheral vascular disease and back wound. Dr. Mauro 2 determine when last echocardiogram was done and discussed patient's case. Last echo was July 05, 2015. EF at that time was 55%. He did have one episode of atrial fibrillation in the past. He is on Eliquis. informed that he has not taken his last [address] Mauro was made aware that he had transient break in his intranodal tachycardia with 6 and 12 of adenosine. Discussed options of cardioversion versus medication. It was decided to cardiovert the patient. Physical Examination: Arrives altered level of conscious not appearing well with tachycardia and tachypnea. Capillary refill is normal. He does have acrocyanosis of all digits upper and lower extremity. Pupils are equal round reactive. Extra muscle intact. There is no icterus of the sclera. Mouth appears dry. Trach is midline. Question of JVD at 45 . Rales were noted bilaterally. Heart is rapid and regular. Abdomen is prominent multiple well-healed scars. Bowel sounds are diminished. Lower extremities reveal edema. DP and PT pulses are not palpable. He does have palpable radial pulses. He moves all extremities. Sensation appears intact. There is no clonus or Babinski sign noted. Test Results: EKG #1 reveals an infranodal tachycardia. Question wide complex versus narrow complex. There are ischemic changes noted which in my professional opinion are secondary to his rates. EKG #2 was obtained after 12 mg adenosine which revealed a sinus tachycardia with a rate of 129 and a left axis and LVH with repolarization changes. EKG #3 reveals a sinus tachycardia rate of 116 with PACs and evidence of a right bundle branch block, left anterior fascicular block and a first-degree block. Portable chest x-ray reveals borderline cardiomegaly which in my opinion is secondary to the fact that this is a portable film. There is evidence of CHF. Troponins elevated at 0.26. Lactate elevated 3.0. White count elevated 15.8 thousand with 89 segs. H AND H 12.9 and 38.6. BMP is remarkable glucose 143 BUN of 67 and creatinine of 2.16. Last creatinine was 1.65. Emergency Department Course and Treatment: EKG was obtained which reveals and infranodal tachycardiac question narrow complex versus widened complex. There is ST-T wave changes, which in my professional opinion is rate dependent. Old EKG was obtained and he had an intraventricular conduction delay on prior EKG. Patient received 6 mg of adenosine once IV was established. He had transient break in his intranodal tachycardia. Since there was a transient break he was then given 12 mg. He converted to a sinus tachycardia for several minutes. He went back into a rapid complex rhythm. As previously documented Dr. Mauro was contacted and discussed cardioversion versus medication. Patient was consented for procedural sedation for cardioversion. was explained risk benefits. She was informed that I did discuss this with Dr. Mauro and in our opinion this was his best option since his chest x-ray revealed heart failure. She was explained all the risk benefits that I have seen and the most common problems. She was given opportunity ask questions. None were asked. She did sign consent form for her since he is not capable. Patient received total of 8 mg of etomidate. He was successfully cardioverted using 150 J. Total procedure time for sedation 5 minutes I was informed at 1005 that patient is in here At rhythm again with a rate of 180+. Therefore, will bolus with Cardizem and start on drip. Since patient is clinically fluid overloaded and has CHF on x-ray will treat with Lasix for diuresis. Appropriate blood work was obtained to rule out cardiac ischemia and a lactate was obtained to confirm suspicion for peripheral fusion. Treatment Plan: Will require admission to ICU with further monitoring and testing. Dr. Regan requested hospitalist to be notified. He informed me that re-is covering since he is in the office until noon and then will not be available. Procedures: 1. Procedural sedation (5 minutes) 2. Synchronized cardioversion 150 J 3. Critical care time 54 minutes Disposition: Admit ICU Impression: 1. Intranodal tachycardia 2. CHF 3. Elevated troponin 4. Lactic acidosis secondary to poor perfusion 5. Acute on chronic renal insufficiency 6. Hyperglycemia 7. Severe headache with new facial droop left side 8. Significant pulmonary disease with pulmonary hypertension This note was generated with [employer] software. It may contain incorrect words, spelling, and punctuation that were not noted in review of the chart prior to signing ED Disposition - Plan for ED Patient: Chief Complaint: Palpitations Referrals: Linus Lindquist, DO [Primary Care Provider] - What to do if you have Problems For any increased pain, shortness of breath, bleeding, nausea or vomiting, chest pain, or any unexpected problems, contact your Primary Care Provider. Call [facility] ([phone]) or report to the closest Emergency Room. Call 911 if necessary. 06/21/17 1022 <Electronically signed by Jarad Marley MD> Date Jarad Marley MD Cosigner Signature (If Indicated): Date CC: Linus Lindquist DO BLOOD GASES BY CPS Collected: 06/21/2017 Status: F Source: [place] 9:38 AM [facility] REPOSITORY TYPE CODE TESTS RESULT OUT OF RANGE REFERENCE UNITS LAB L9000.9990 Normal BLD GAS TYPE ART LAB L9001.1000 Normal SITE R Radial LAB L9001.1010 Normal WERNER TEST POS LAB L9001.1050 O2 Normal Delivery Dev Nasal Can LAB L9001.1055 /min Normal LPM 2.0 LAB L9001.1104 Normal Results To ED LAB L9001.1105 Normal Time Given 933 LAB L9001.1110 7.35-7.45 High pH - I-STAT 7.51 LAB L9001.1210 35-45 mmHg Low pCO2 - ISTAT 24.1 LAB L9001.1310 75-100 mmHG Normal PO2 I-STAT 82 LAB L9001.2300 22-26 mmol/L Low HCO3 ISTAT 19.1 LAB L9001.2400 -2 to +2 mmol/L Low BE ISTAT -4 LAB L9001.2415 mmol/L Normal TOTAL CO2 20 ISTAT LAB L9001.2425 95-99 % Normal SO2 ISTAT 97 Performed By: #### L9000.0800 #### [facility] Point of Care [address] [place] [address] LACTIC ACID Collected: 06/21/2017 Status: F Source: [place] 9:[address] [facility] REPOSITORY Order Comment: Yes/No query for Sepsis Lactate Rule Y TYPE CODE TESTS RESULT OUT OF REFERENCE UNITS RANGE LAB L503.6005 0.4-2.0 mmol/L High LACTIC ACID 3.0 Result Comment: Critical Result(s) Called at: 09:53:05 06/21/2017 by: Kingsley Carrasco TO JAZMYNE WALLS Performed By: #### L503.6005 #### [facility] [address] [place], [address] BRAIN/HEAD WITHOUT Observed: 06/21/2017 Status: F Source: [place] CONTRAST 9:[address] [facility] REPOSITORY [facility] Imaging Services [address] [place] [address] Brain/Head without Contrast MR#: [id number] Acct: [id number] Name: CUONG MARSHALL Rep #: [id number] : 1945 M 72 From: Kalie Ospina MD PCP: Linus Lindquist DO Status: REG ER Study: Brain/Head without Contrast Date of Exam: 06/21/17 Exam# [id number] Ordering Dr: Jarad Marley MD STUDY: CT BRAIN WITHOUT CONTRAST REASON FOR EXAM: Male, 72 years old. Headache. RADIATION DOSAGE (If Supplied By Facility): CTDIvol = ( 44.99 ) mGy, DLP = ( 762.36 ) mGycm TECHNIQUE: Transaxial CT imaging of the brain was performed without administration of intravenous contrast material. Multiplanar reformations are submitted for interpretation. Individualized dose optimization techniques were used for this CT. COMPARISON: CT of the head dated October 14, 2016. FINDINGS: Normal soft tissue structures. Normal calvarium. There is mild cerebral atrophy with widening of the extra- axial spaces and ventricular dilatation. There are areas of decreased attenuation within the white matter tracts of the supratentorial brain, consistent with microvascular disease changes. Small lucency visible in the right thalamus is probably related to old infarct. This appears new however since the previous CT. Normal brainstem. There is mild cerebellar atrophy. There is no intracranial hemorrhage. There is moderate atherosclerotic calcification of intracranial arteries. Appears to be some bubbly fluid in the posterior left-sided ethmoid sinus. The paranasal sinuses appear to be clear otherwise. CT/Brain/Head without Contrast IMPRESSION: 1. Chronic involutional changes of the brain. 2. 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 3. No CT evidence of acute intracranial hemorrhage. 4. Possible acute left ethmoid sinus disease. Electronically Signed: Kalie Ospina MD at 10:30 EST , Service support , CC: Linus Marley MD Cloth Designer: Signed CBC W/DIFF, AUTOMATED Collected: 06/21/2017 Status: F Source: [place] 9:[address] [facility] REPOSITORY TYPE CODE TESTS RESULT OUT OF RANGE REFERENCE UNITS LAB L100.1000 4.4-11.0 K/mm3 High WBC 15.8 LAB L100.1200 4.6-6.2 M/mm3 Low RBC 3.93 LAB L100.1300 13.0-16.5 g/dl Low HGB 12.9 LAB L100.1400 40-54 % Low HCT 38.7 LAB L100.1500 80-94 fL High MCV 98.5 LAB L100.1600 27.0-32.0 pg High MCH 32.8 LAB L100.1700 32-36 g/gl Normal MCHC 33.3 LAB L100.1810 11.6-14.6 % High RDW CV 15.6 LAB L100.1820 35.1-43.9 fl High RDW SD 56.2 LAB L100.1900 150-450 K/mm3 Normal PLT 286 LAB L100.2000 6.2-12.0 fl Normal MPV 10.0 LAB L100.2100 47-70 % High NEUT% 89.4 LAB L100.2200 19-41 % Low LY% 5.5 LAB L100.2300 0-10 % Normal MONO% 4.7 LAB L100.2400 0-5 % Normal EO% 0.0 LAB L100.2500 0-1 % Normal BASO% 0.1 LAB L100.2550 0.0-0.9 % Normal IM GRAN % 0.300 Result Comment: IG% - Immature Granulocytes (promyelocytes, myelocytes and metamyelocytes) > 1% indicates that a LEFT SHIFT is Present. LAB L100.2620 2.0-7.7 X10 3/uL High Absolute Neut 14.2 LAB L100.2720 0.83-4.51 X10 3/ul Normal Absolute Lymph 0.87 Performed By: #### L100.0100 #### [facility] [address] [place], [place], [address] BASIC METABOLIC Collected: 06/21/2017 Status: F Source: [place] PROFILE (BMP) 9:[address] [facility] REPOSITORY Order Comment: 'TROP' Serial specimen #1, #2, #3, or #4: 1 TYPE CODE TESTS RESULT OUT OF RANGE REFERENCE UNITS LAB L501.0100 74-106 mg/dL High GLU 143 Result Comment: Fasting Glucose result greater than or equal to 126 mg/dL suggests DIABETES MELLITUS per A.D.A. criteria. Please note revised GLUCOSE reference range effective 2017. LAB L501.1000 7-18 mg/dL High BUN 67 LAB L501.1100 0.70-1.30 mg/dL High CREAT,SERUM 2.16 Result Comment: The validity of the calculated GFR AND GFRAA in patients over 70 years has not been determined. Clinical correlation is essential. LAB L501.1110 >60 mL/min Low EST GFR 32 Result Comment: Non- GFR Calc LAB L501.1115 >60 mL/min Low EST GFR - AA 39 Result Comment: GFR Calc LAB L501.1255 ml/min Normal Estimated CRCL 33.43 LAB L501.1300 10-20 RATIO High BUN/CRE 31.0 LAB L501.2200 8.5-10 mg/dL Normal .1 CA 9.5 LAB L501.5300 136-14 mmol/L Low 5 NA 133 LAB L501.5600 3.5-5. mmol/L Normal 1 K 4.4 LAB L501.5900 98-107 mmol/L Normal CL 99 LAB L501.6100 21.0-3 mmol/L Normal 2.0 CO2 21.0 LAB L501.6200 5-15 Normal GAP 13 Performed By: #### L500.2500, L501.4010 #### [facility] [address] [place], [address] TROPONIN-I Collected: 06/21/2017 Status: F Source: [place] 9:[address] [facility] REPOSITORY Order Comment: 'TROP' Serial specimen #1, #2, #3, or #4: 1 TYPE CODE TESTS RESULT OUT OF RANGE REFERENCE UNITS LAB L501.4010 <0.06 ng/mL High 0.26 TROPONIN-I Result Comment: TROPONIN-I EXPECTED VALUES <0.05 NEGATIVE 0.06 - 0.59 AT RISK OF DE > OR = 0.60 SUGGEST DE Performed By: #### L500.2500, L501.4010 #### [facility] [address] [place], [place], [address] BNP,B-TYPE NATRIURETIC Collected: 06/21/2017 Status: F Source: [place] PEPTIDE 9:[address] [facility] REPOSITORY TYPE CODE TESTS RESULT OUT OF RANGE REFERENCE UNITS LAB L503.6620 0-100 pg/mL High B-TYPE > 5000.0 DANILO PEP Performed By: #### L503.6620 #### [facility] [address] [place], [address] COMPREHENSIVE METABOLIC Collected: 06/21/2017 Status: F Source: [place] ASIF 9:[address] [facility] REPOSITORY TYPE CODE TESTS RESULT OUT OF RANGE REFERENCE UNITS LAB L501.0100 74-106 mg/dL High GLU 134 Result Comment: Fasting Glucose result greater than or equal to 126 mg/dL suggests DIABETES MELLITUS per A.D.A. criteria. Please note revised GLUCOSE reference range effective 2017. LAB L501.1000 7-18 mg/dL High BUN 68 LAB L501.1100 0.70-1.30 mg/dL High CREAT,SERUM 2.23 Result Comment: The validity of the calculated GFR AND GFRAA in patients over 70 years has not been determined. Clinical correlation is essential. LAB L501.1110 >60 mL/min Low EST GFR 31 Result Comment: Non- GFR Calc LAB L501.1115 >60 mL/min Low EST GFR - AA 37 Result Comment: GFR Calc LAB L501.1255 ml/min Normal Estimated CRCL 32.38 LAB L501.1300 10-20 RATIO High BUN/CRE 30.5 LAB L501.1500 6.4-8. g/dL High 2 T PROT 9.5 LAB L501.1800 3.2-5. g/dL Low 0 ALB 2.8 LAB L501.1950 2.2-4. g/dL High 2 GLOB 6.7 LAB L501.2000 0.9-2. RATIO Low 4 A/G 0.4 LAB L501.2200 8.5-10 mg/dL Normal .1 CA 9.1 LAB L501.4100 15-37 U/L Normal AST 31 LAB L501.4305 45-117 U/L High ALK P 194 LAB L501.4405 16-61 U/L Normal ALT 20 Result Comment: Please note revised ALT reference range effective 2017. LAB L501.4600 0.20-1.00 mg/dL Normal T BILI 0.50 LAB L501.5300 136-145 mmol/L Low NA 133 LAB L501.5600 3.5-5.1 mmol/L Normal K 4.5 LAB L501.5900 98-107 mmol/L Normal CL 98 LAB L501.6100 21.0-32.0 mmol/L Low CO2 18.0 LAB L501.6200 5-15 High GAP 17 Performed By: #### L500.4050 #### [facility] [address] [place], [address] CHEST 1 VIEW Observed: 06/21/2017 Status: F Source: [place] (PORTABLE) 9:[address] [facility] REPOSITORY [facility] Imaging Services [address] [place] [address] Chest 1 View (Portable) MR#: [id number] Acct: [id number] Name: CUONG MARSHALL Rep #: [id number] : 1945 M 72 From: Kalie Ospina MD PCP: Linus Lindquist DO Status: REG ER Study: Chest 1 View (Portable) Date of Exam: 06/21/17 Exam# [id number] Ordering Dr: Jarad Marley MD STUDY: X-RAY CHEST REASON FOR EXAM: Male, 72 years old. Dyspnea. TECHNIQUE: Single AP portable view of the chest. COMPARISON: October 26, 2016 FINDINGS: Cardiac monitoring leads are present. There is mild elevation of the right hemidiaphragm. Left lung is expanded. There is mild prominence of bronchovascular markings. There is perihilar interstitial thickening and peribronchial cuffing. There is no demonstrated pleural abnormality. There is mild cardiac enlargement. Normal mediastinum and raquel. Normal visualized pulmonary arteries. There is atherosclerotic calcification of the aortic arch with tortuosity. There are diffuse degenerative changes of the visualized thoracic spine. Normal visualized ribs, clavicles, and shoulders. There is no demonstrated abnormality of the visualized soft tissue structures of the upper abdomen. RAD/Chest 1 View (Portable) IMPRESSION: 1. Increasing pulmonary congestion. 2. Mild cardiomegaly. Electronically Signed: Kalie Ospina MD at 9:37 EST , Service support , CC: Linus Marley MD Cloth Designer: Signed LACTIC ACID Collected: 06/21/2017 Status: F Source: [place] 12:[address] [facility] REPOSITORY TYPE CODE TESTS RESULT OUT OF RANGE REFERENCE UNITS LAB L503.6005 0.4-2.0 mmol/L Normal LACTIC ACID 1.4 Performed By: #### L503.6005 #### [facility] [place], [address] CBC W/DIFF, AUTOMATED Collected: 06/17/2017 Status: F Source: [place] 11:[address] [facility] REPOSITORY TYPE CODE TESTS RESULT OUT OF RANGE REFERENCE UNITS LAB L100.1000 4.4-11.0 K/mm3 Normal WBC 7.2 LAB L100.1200 4.6-6.2 M/mm3 Low RBC 3.22 LAB L100.1300 13.0-16.5 g/dl Low HGB 10.3 LAB L100.1400 40-54 % Low HCT 32.5 LAB L100.1500 80-94 fL High MCV 100.9 LAB L100.1600 27.0-32.0 pg Normal MCH 32.0 LAB L100.1700 32-36 g/gl Low MCHC 31.7 LAB L100.1810 11.6-14.6 % High RDW CV 15.3 LAB L100.1820 35.1-43.9 fl High RDW SD 56.1 LAB L100.1900 150-450 K/mm3 Normal PLT 283 LAB L100.2000 6.2-12.0 fl Normal MPV 9.2 LAB L100.2100 47-70 % Normal NEUT% 66.7 LAB L100.2200 19-41 % Low LY% 12.7 LAB L100.2300 0-10 % High MONO% 18.4 LAB L100.2400 0-5 % Normal EO% 1.8 LAB L100.2500 0-1 % Normal BASO% 0.3 LAB L100.2550 0.0-0.9 % Normal IM GRAN % 0.100 Result Comment: IG% - Immature Granulocytes (promyelocytes, myelocytes and metamyelocytes) > 1% indicates that a LEFT SHIFT is Present. LAB L100.2620 2.0-7.7 X10 3/uL Normal Absolute Neut 4.8 LAB L100.2720 0.83-4.51 X10 3/ul Normal Absolute Lymph 0.91 Performed By: #### L100.0100 #### [facility] [address] [place], [place], [address] IRON+IRON BINDING Collected: 06/17/2017 Status: F Source: [facility] 11:[address] [facility] REPOSITORY TYPE CODE TESTS RESULT OUT OF RANGE REFERENCE UNITS LAB L503.6075 250-450 ug/dL TIBC Normal 252 LAB L503.6150 65-175 ug/dL Low IRON 57 LAB L503.6250 15.0-55.0 % IRON Normal SATURATION 22.6 Performed By: #### L503.6030, L503.6550 #### [facility] [address] [place], [place], [address] FERRITIN Collected: 06/17/2017 Status: F Source: [place] 11:35 [facility] [place] [place] REPOSITORY TYPE CODE TESTS RESULT OUT OF RANGE REFERENCE UNITS LAB L503.6550 26-388 ng/mL Normal FERRITIN 95 Performed By: #### L503.6030, L503.6550 #### [facility] [address] [place], [place], [address] BACT CULTURE/DIR Observed: Status: F Source: [place] SMEAR,LESION,TISSUE,DEVICE-UHE 06/13/2017 12:51 [facility] REPOSITORY SOURCE: WOUND: Back Tissue COMMENT: Tiny Tissue MICROSCOPIC: Neutrophils, Light Mononuclear cells present Necrotic debris present GRAM POSITIVE COCCI QUANTITATION: Total Microbial Growth, Heavy RESULT: PASTEURELLA MULTOCIDA :Identification by MALDI-TOF mass spectrometer. Susceptibilities not routinely performed. ---> RVW ALPHA STREPTOCOCCUS, VIRIDANS GROUP ---> RVW DIPHTHEROIDS ---> RVW (NOTE) Identification was performed on the MALDI-TOF mass spectrometer Biotyper. This test was developed and its performance characteristics determined by The [facility] Laboratory at [facility]. It has not been cleared or approved by the FDA. The laboratory is regulated under CLIA as qualified to perform high- complexity testing. This test is used for cl inical purposes. It should not be regarded as investigational or for research REPORT STATUS: 06/15/2017 FINAL Performed By: #### GEN #### [address] [address] Blood Cultures processed at: [facility] HH, HEMOGLOBIN AND Collected: 06/03/2017 Status: F Source: [place] HEMATOCRIT 12:[address] [facility] REPOSITORY TYPE CODE TESTS RESULT OUT OF RANGE REFERENCE UNITS LAB L100.1300 13.0-16.5 g/dl Low HGB 10.4 LAB L100.1400 40-54 % Low HCT 32.3 Performed By: #### L100.0600 #### [facility] [address] [facility] [place], [place], [address] RENAL PROFILE Collected: 06/03/2017 Status: F Source: [place] 12:[address] [facility] REPOSITORY TYPE CODE TESTS RESULT OUT OF RANGE REFERENCE UNITS LAB L501.0100 70-110 mg/dL Normal GLU 95 LAB L501.1000 7-18 mg/dL High BUN 61 LAB L501.1100 0.70-1.30 mg/dL High 1.64 CREAT,SERUM Result Comment: The validity of the calculated GFR AND GFRAA in patients over 70 years has not been determined. Clinical correlation is essential. LAB L501.1110 >60 mL/min Low EST GFR 44 Result Comment: Non- GFR Calc LAB L501.1115 >60 mL/min Low EST GFR - AA 53 Result Comment: GFR Calc LAB L501.1255 ml/min Normal Estimated CRCL 38.81 LAB L501.1300 10-20 RATIO High BUN/CRE 37.2 LAB L501.1800 3.2-5. g/dL Low 0 ALB 2.6 LAB L501.2200 8.5-10 mg/dL Normal .1 CA 8.9 LAB L501.2300 2.5-4. mg/dL Normal 9 PHOS 3.7 LAB L501.5300 136-14 mmol/L Normal 5 NA 138 LAB L501.5600 3.5-5. mmol/L Normal 1 K 4.5 LAB L501.5900 98-107 mmol/L High CL 108 LAB L501.6100 21.0-3 mmol/L Normal 2.0 CO2 22.0 Performed By: #### L500.3600 #### [facility] [address] [place], [place], [address] CBC W/DIFF, AUTOMATED Collected: 05/20/2017 Status: F Source: [place] 11:[address] [facility] REPOSITORY TYPE CODE TESTS RESULT OUT OF RANGE REFERENCE UNITS LAB L100.1000 4.4-11.0 K/mm3 Normal WBC 6.6 LAB L100.1200 4.6-6.2 M/mm3 Low RBC 3.28 LAB L100.1300 13.0-16.5 g/dl Low HGB 10.6 LAB L100.1400 40-54 % Low HCT 33.0 LAB L100.1500 80-94 fL High MCV 100.6 LAB L100.1600 27.0-32.0 pg High MCH 32.3 LAB L100.1700 32-36 g/gl Normal MCHC 32.1 LAB L100.1810 11.6-14.6 % High RDW CV 15.0 LAB L100.1820 35.1-43.9 fl High RDW SD 53.7 LAB L100.1900 150-450 K/mm3 Normal PLT 343 LAB L100.2000 6.2-12.0 fl Normal MPV 10.4 LAB L100.2100 47-70 % Normal NEUT% 57.7 LAB L100.2200 19-41 % Low LY% 17.0 LAB L100.2300 0-10 % High MONO% 17.7 LAB L100.2400 0-5 % High EO% 6.8 LAB L100.2500 0-1 % Normal BASO% 0.6 LAB L100.2550 0.0-0.9 % Normal IM GRAN % 0.200 Result Comment: IG% - Immature Granulocytes (promyelocytes, myelocytes and metamyelocytes) > 1% indicates that a LEFT SHIFT is Present. LAB L100.2620 2.0-7.7 X10 3/uL Normal Absolute Neut 3.8 LAB L100.2720 0.83-4.51 X10 3/ul Normal Absolute Lymph 1.12 Performed By: #### L100.0100 #### [facility] [address] [facility] [address] [place], [address] BACT CULTURE/DIR Observed: Status: F Source: [place] SMEAR,LESION,TISSUE,DEVICE-UHE 05/14/2017 12:15 [facility] REPOSITORY SOURCE: WOUND: Back Lower COMMENT: Medium Tissue MICROSCOPIC: Neutrophils, Rare Red Blood Cells Present Mononuclear cells present GRAM POSITIVE COCCI Gram Stain read at [facility] QUANTITATION: Total Microbial Growth, Heavy RESULT: STAPHYLOCOCCUS AUREUS ---> RVW ALPHA STREPTOCOCCUS, VIRIDANS GROUP ---> RVW DIPHTHEROIDS ---> RVW (NOTE) ATTENTION:Rifampin must never be used alone as monotherapy for staphylococcal infection because of the rapid emergence of resistance. REPORT STATUS: 05/16/2017 FINAL ORGANISM: STAPHYLOCOCCUS AUREUS SUSCEPTIBILITY STAPHYLOCOCCUS AUREUS ANTIBIOTIC INTERPRETATION PADMINI STATUS RIFAMPIN SS <=1 F PENICILLIN R >8 F NAFCILLIN SS 0.5 F CEFAZOLIN SS <=4 F CLINDAMYCIN SS <=0.5 F TRIMETHOPRIM/SULFA. SS <=0.5/9.5 F TETRACYCLINE SS <=4 F Performed By: #### GEN #### [address] [address] Blood Cultures processed at: [facility] Observed: 05/14/2017 Status: F Source: [facility] CULTURE -E 12:15 PM [facility] REPOSITORY SOURCE: WOUND: Back Lower COMMENT: Cultures held 28 days. Medium Tissue RESULT: NO GROWTH TO DATE REPORT STATUS: 06/11/2017 FINAL Performed By: #### FUN #### [address] [address] Blood Cultures processed at: [facility] Observed: 05/14/2017 Status: F [facility] PM [facility] REPOSITORY SOURCE: WOUND: Back Lower COMMENT: Medium Tissue MICROSCOPIC: See Routine Culture QUANTITATION: Total Microbial Growth, Heavy RESULT: EDIA SPECIES :Identification by MALDI-TOF mass spectrometer. ---> RVW (NOTE) Identification was performed on the MALDI-TOF mass spectrometer Biotyper. This test was developed and its performance characteristics determined by The [facility] at [facility]. It has not been cleared or approved by the FDA. The laboratory is regulated under CLIA as qualified to perform high- complexity testing. This test is used for cl inical purposes. It should not be regarded as investigational or for research REPORT STATUS: 05/20/2017 FINAL Performed By: #### JESS #### [address] [address] Blood Cultures processed at: [facility], HEMOGLOBIN AND Collected: 05/03/2017 Status: F Source: [place] HEMATOCRIT 12:[address] [facility] REPOSITORY TYPE CODE TESTS RESULT OUT OF RANGE REFERENCE UNITS LAB L100.1300 13.0-16.5 g/dl Low HGB 10.7 LAB L100.1400 40-54 % Low HCT 34.5 Performed By: #### L100.0600 #### [facility] [address] [place], [address] RENAL PROFILE Collected: 05/03/2017 Status: F Source: [place] 12:[address] [facility] REPOSITORY TYPE CODE TESTS RESULT OUT OF RANGE REFERENCE UNITS LAB L501.0100 70-110 mg/dL Normal GLU 90 LAB L501.1000 7-18 mg/dL High BUN 48 LAB L501.1100 0.70-1.30 mg/dL High 1.53 CREAT,SERUM Result Comment: The validity of the calculated GFR AND GFRAA in patients over 70 years has not been determined. Clinical correlation is essential. LAB L501.1110 >60 mL/min Low EST GFR 48 Result Comment: Non- GFR Calc LAB L501.1115 >60 mL/min Low EST GFR - AA 58 Result Comment: GFR Calc LAB L501.1255 ml/min Normal Estimated CRCL 41.60 LAB L501.1300 10-20 RATIO High BUN/CRE 31.4 LAB L501.1800 3.4-5. g/dL Low 0 ALB 2.5 Result Comment: Please note revised Albumin AND Globulin reference range effective 2017. LAB L501.2200 8.5-10.1 mg/dL Normal CA 9.9 LAB L501.2300 2.5-4.9 mg/dL Normal PHOS 3.4 LAB L501.5300 136-145 mmol/L Normal NA 141 LAB L501.5600 3.5-5.1 mmol/L Normal K 4.2 LAB L501.5900 98-107 mmol/L High CL 109 LAB L501.6100 21.0-32.0 mmol/L Normal CO2 23.0 Performed By: #### L500.3600 #### [facility] [address] [place], [address] ALLERGIES ALLERGIES DATE TYPE / CODE NAME / CODE REACTION SEVERITY SOURCE 04/08/2018 Drug prednisone/F0060 Swelling Unknown [facility] Allergy/416 48808([facility] 183353([facility] Repository ED CT) 04/08/2018 Drug chlorthalidone/F Unknown Unknown [facility] Allergy/416 [id number]([facility] 282357(SNOM ) Repository ED CT) 04/08/2018 Drug sulfamethoxazole Other Unknown [facility] Allergy/416 /[id number]([facility] 788135(SNOM RM) Repository ED CT) 04/08/2018 Drug trimethoprim/F00 Other Unknown [facility] Allergy/723 3325074(RXNORM) Hospital 783408(SNOM Repository ED CT) 04/08/2018 Drug ramipril/U107506 Unknown Unknown [facility] Allergy/416 585(RXNORM) Hospital 875119(SNOM Repository ED CT) 04/08/2018 Drug trazodone/K36613 Unknown [facility] Allergy/416 4610(RXNORM) Hospital 182788(SNOM Repository ED CT) Drug NO [facility] Class/95544 ALLERGIES [facility] [place] 1003(SNOMED Repository CT) ENCOUNTERS ENCOUNTERS ADMIT/DISCHARGE ACCOUNT NUMBER ADMITTING ENCOUNTER LOCATION SOURCE CLASS 2018 [id number] Ambulatory General acute hospital ding:MEDOUTP Repository 04/18/2018 [id number] Ambulatory General acute hospital ding:WC Repository 04/08/2018 [id number] Ambulatory General acute hospital ding:MEDOUTP Repository 04/04/2018/04/04/20 [id number] Ambulatory [address] ding: Repository 04/03/2018 [id number] Ambulatory General acute hospital ding:LAB.FUT Repository URE 04/02/2018/04/04/20 [id number] Ambulatory [address] Repository 03/28/2018 [id number] Ambulatory General acute hospital ding:MEDOUTP Repository 03/25/2018 [id number] Ambulatory BMSBuilding: [facility] BMS.CF.[facility] Repository 03/14/2018 [id number] Ambulatory General acute hospital ding:MEDOUTP Repository 03/11/2018/03/13/20 [id number] Ambulatory [address] Repository 02/28/2018/03/05/20 [id number] Ambulatory [address] ding:WC Repository 02/28/2018 [id number] [facility] Repository 02/27/2018 [id number] [facility]ulatory [facility] ding:LAB.FUT Repository URE 02/24/2018 [id number] Ambulatory [facility] Hospital ding:CT Repository 02/21/2018 [id number] [facility] ding:[facility]SPEC Repository 02/20/2018 [id number] [facility] ding[facility]LAB Repository 02/14/2018 [id number] [facility] ding:MED[facility]P Repository 01/31/2018/02/03/20 [id number] Ambulatory [address] Hospital ding:WC Repository 01/31/2018 [id number] Ambulatory [facility] Hospital ding:MEDOUTP Repository 01/23/2018 [id number] Ambulatory BMSBuilding: [facility] Repository 01/23/2018 [id number] Ambulatory BMSBuilding: [facility] Repository 01/20/2018 [id number] [facility]ulatory [facility] ding:LAB Repository 01/17/2018 [id number] Ambulatory [facility] Hospital ding:MEDOUTP Repository 01/10/2018 [id number] Ambulatory [facility] Hospital ding:MEDOUTP Repository 01/03/2018/01/04/20 [id number] [facility] [facility] ding[facility]WC Repository 01/03/2018 [id number] [facility] ding:MEDOUTP Repository 12/27/2017 [id number] [facility]ulatory [facility] ding:MEDOUTP Repository 12/13/2017 [id number] [facility] ding:MEDOUTP Repository 12/12/2017 [id number] Ambulatory Building:[facility] Repository 12/12/2017 [id number] Ambulatory ABuilding:WD [facility] Repository 12/02/2017/12/04/19 [id number] Ambulatory [facility] Hospital ding: Repository 11/29/2017 [id number] Ambulatory [facility] Hospital ding:MEDOUTP Repository 11/28/2017 [id number] Ambulatory Building:[facility] Repository 11/27/2017 [id number] Ambulatory [facility] Hospital ding:[facility] Repository 11/27/2017 [id number] Ambulatory BMSBuilding: [facility] Repository 11/27/2017 [id number] Ambulatory BMSBuilding: [facility] Repository 11/19/2017/11/20/19 [id number] Ambulatory BMSBuilding: [facility] Repository 11/15/2017 [id number] Ambulatory [facility] Hospital ding:MEDOUTP Repository 11/01/2017/11/03/19 [id number] Ambulatory [facility] Hospital ding: Repository 11/01/2017 [id number] Ambulatory [facility] Hospital ding:MEDOUTP Repository 10/16/2017 [id number] Ambulatory [facility] Hospital ding:MEDOUTP Repository 10/09/2017 [id number] Ambulatory BMSBuilding: [facility] Repository 10/02/2017/10/04/19 [id number] Ambulatory [facility] [facility] ding: Repository 10/02/2017 [id number] Ambulatory BMSBuilding: [facility] Repository 10/01/2017 [id number] Ambulatory [facility] Hospital ding:MEDOUTP Repository 09/25/2017 [id number] Ambulatory BMSBuilding: [facility] Repository 09/25/2017 [id number] Ambulatory BMSBuilding: [facility] Repository 09/18/2017 [id number] Ambulatory BMSBuilding: [facility] Repository 09/17/2017 [id number] Ambulatory [facility] Hospital ding:MEDOUTP Repository 09/11/2017 [id number] Ambulatory BMSBuilding: [facility] Repository 09/05/2017 [id number] Ambulatory BMSBuilding: [facility] Repository 09/03/2017 [id number] [facility]ulatory [facility] ding:MEDOUTP Repository 08/30/2017 [id number] Ambulatory [facility] Hospital ding:LABSPEC Repository 08/29/2017 [id number] Ambulatory Building:[facility] Repository 08/28/2017/09/03/19 [id number] Ambulatory [address] Hospital ding: Repository 08/28/2017 [id number] Ambulatory BMSBuilding: [facility] Repository 08/27/2017/08/28/19 [id number] Ambulatory BMSBuilding: [facility] Repository 08/26/2017 [id number] [facility] 08/22/2017 [id number] Ambulatory BMS [facility] Repository 08/21/2017 [id number] Ambulatory BMSBuilding: [facility] Repository 08/20/2017 [id number] Ambulatory [facility] Hospital ding:MEDOUTP Repository 08/14/2017 [id number] Ambulatory [facility] Hospital ding:HHLAB Repository 08/07/2017 [id number] Ambulatory BMSBuilding: [facility] Repository 08/06/2017 [id number] Ambulatory [facility] Hospital ding:MEDOUTP Repository 08/02/2017/08/04/19 [id number] Ambulatory [address] [facility] ding:WC Repository 07/30/2017/08/04/19 [id number] Ambulatory [address] Hospital ding:HHLAB Repository 07/24/2017/07/25/19 [id number] Emergency [facility] Hospital ding:ED Repository 07/24/2017 [id number] [facility] Repository 07/23/2017 [id number] Ambulatory General acute hospital ding:MEDOUTP Repository 07/22/2017 [id number] Ambulatory General acute hospital ding:LABSPEC Repository 07/17/2017 [id number] Ambulatory B[facility]Building: [facility] BMS[facility] Repository 07/17/2017/07/18/19 [id number] Emergency [address] ding:ED Repository 07/16/2017 [id number] Ambulatory General acute hospital ding:LABSPEC Repository 07/04/2017/07/13/19 [id number] Frank Olmedo Inpatient [facility] Hospital ding:TCURoom Repository : QQJ61Wke: 1 06/26/2017/07/05/19 [id number] WERNER, Inpatient Building:[address] Encounter Room: [place] [address]Bed: A [facility] Repository 06/21/2017/06/26/19 [id number] [facility], Inpatient [place] [address] Encounter [facility] ding:PCURoom Repository : ELL679Arw: 1 06/21/2017 [id number] [facility], Ambulatory BMSBuilding: [facility] Repository 06/21/2017 [id number] [facility], Ambulatory BMSBuilding: [facility] BMS.CF.[facility] Repository 06/21/2017 [id number] [facility], Ambulatory B[facility]Building: [facility] Repository 06/21/2017 [id number] [facility], Ambulatory BMSBuilding: [facility] BMS.CF.[facility] Repository 06/21/2017 [id number] Myles, Ambulatory BMSBuilding: [facility] Repository 06/21/2017 [id number] [facility], Ambulatory BMSBuilding: [facility] Repository 06/21/2017 [id number] Myles, Ambulatory BMSBuilding: [facility] BMS.CF.[facility] Repository 06/21/2017 [id number] [facility], Ambulatory BMSBuilding: [facility] Repository 06/21/2017 [id number] [facility], Ambulatory BMSBuilding: [facility] Repository 06/21/2017 [id number] [facility], Ambulatory BMSBuilding: [facility] Repository 06/21/2017 [id number] [facility], Ambulatory BMSBuilding: [facility] [facility] BMS.CF.[facility] Repository 06/21/2017 [id number] [facility], Ambulatory BMSBuilding: [facility] Repository 06/21/2017 [id number] [facility], Ambulatory BMSBuilding: [facility] Repository 06/21/2017 [id number] [facility], Ambulatory BMSBuilding: [facility] BMS.CF.[facility] Repository 06/21/2017 [id number] [facility], Ambulatory BMSBuilding: [facility] BMS.[facility] Repository 06/21/2017/06/26/19 [id number] Ambulatory BMSBuilding: [facility] Repository 06/21/2017/06/26/19 [id number] Ambulatory [facility]Building: [facility] Repository 06/17/2017 [id number] Ambulatory General acute hospital ding:[facility] Repository 06/13/2017 [id number] Ambulatory Building:[address] Repository 06/13/2017 [id number] Ambulatory Building:[facility] Repository 06/07/2017/07/03/19 [id number] Ambulatory [address] ding: Repository 06/03/2017 [id number] [facility]ulatory [facility] Repository 05/31/2017/06/05/19 [id number] Ambulatory [address] Hospital ding: Repository 05/23/2017 [id number] Ambulatory Building:[facility] Repository 05/20/2017 [id number] [facility] Repository 05/14/2017/05/14/19 [id number] KVNG Ambulatory Building:[address]Room: [facility] Repository 05/03/2017/05/05/20 [id number] [facility] ding: Repository 05/03/2017 [id number] [facility] ding:MEDOUTP Repository 04/24/2017 [id number] [facility] ding:LAB.FUT Repository URE PAYERS PAYERS ENCOUNTER GUARANTOR PAYER SUBSCRIBER SOURCE 2018 CUONG [place] Primary CUONG [id number] Insurance:MEDICARE SCHUBERTDOB: [facility] ALYSA PART A BPolicy Number: [id number], [place] [id number] Repository [address]Fwf: 330) Date:2018-04-089655 () 2018 Secondary CUONG Short Insurance:HUMANA SCHUBERTDOB: [facility] COMMERCIALPolicy [id number] Hospital Number: Repository [id number] Date:[id number] [address]ZM: 2018 Tertiary NOT GIVENUNK [facility] Insurance:SELF PAY [facility] Hospital Number: Effective Repository Date:2018-04-08 04/18/2018 CUONG Chowdhury Primary CUONG Short [id number] Insurance:MEDICARE SCHUBERTDOB: [facility] ALYSA PART A BPolicy Number: [id number], [place] [id number] Repository [address]Dbi: 330) Date:2009-04-053945 () 04/18/2018 Secondary CUONG Short Insurance:HUMANA SCHUBERTDOB: [facility] [id number] Hospital Number: Repository [id number] Date:[id number] [address]ZL: 04/18/2018 Tertiary NOT GIVENUNK [facility] Insurance:SELF PAY [facility] Number: Effective Repository Date:2018-04-05 04/08/2018 CUONG Chowdhury Primary CUONG Short [id number] Insurance:MEDICARE SCHUBERTDOB: Community ALYSA PART A BPolicy Number: [id number], [place] [id number] Repository [address]Gbu: (330) Date:2018-04-049395 () 04/08/2018 Secondary CUONG Chowdhury [facility] Insurance:HUMANA SCHUBERTDOB: Community COMMERCIALPolicy [id number] Hospital Number: Repository [id number] Date:[id number] [address] [address]AZ: 04/08/2018 Tertiary NOT GIVENUNK [facility] Insurance:SELF PAY [facility] Hospital Number: Effective Repository Date:2018-04-04 04/04/2018 CUONG Chowdhury Primary CUONG Short [id number] Insurance:MEDICARE SCHUBERTDOB: Community ALYSA PART A BPolicy Number: [id number], [place] [id number] Repository [address]Blh: (196) Date:2009-04-059953 () 04/04/2018 Secondary CUONG Chowdhury [place] Insurance:HUMANA SCHUBERTDOB: [facility] [id number] Hospital Number: Repository [id number] Date:[id number] [address] [address]XE: 04/04/2018 Tertiary NOT GIVENUNK [facility] Insurance:SELF PAY [facility] Hospital Number: Effective Repository Date:2018-03-06 04/03/2018 CUONG Chowdhury Primary CUONG Short [id number] Insurance:MEDICARE SCHUBERTDOB: Community ALYSA PART A BPolicy Number: [id number], [place] [id number] Repository [address]Wcy: (330) Date:2018-03-249535 () 04/03/2018 Secondary CUONG Chowdhury [facility] Insurance:HUMANA SCHUBERTDOB: Community COMMERCIALPolicy [id number] Hospital Number: Repository [id number] Date:[id number] [address]YM: 04/03/2018 Tertiary NOT GIVENUNK [facility] Insurance:SELF PAY [facility] Hospital Number: Effective Repository Date:2018-03-24 03/28/2018 CUONG Chowdhury Primary CUONG Short [id number] Insurance:MEDICARE SCHUBERTDOB: Community ALYSA PART A BPolicy Number: [id number], [place] [id number] Repository [address]Lgq: (322) Date:2018-03-26 [id number] () 03/28/2018 Secondary CUONG Chowdhury [place] Insurance:HUMANA SCHUBERTDOB: [facility] [id number] Hospital Number: Repository [id number] Date:[id number] [address]XA: 03/28/2018 Tertiary NOT GIVENUNK [place] Insurance:SELF PAY [facility] Hospital Number: Effective Repository Date:2018-03-26 03/25/2018 CUONG Chowdhury Primary CUONG Short [id number] Insurance:MEDICARE SCHUBERTDOB: Community [place] PART A BPolicy Number: [id number], [place] [id number] Repository 77714Fiy: (567) Date:2009-04-055740 (HP) 03/25/2018 Secondary CUONG Chowdhury [place] Insurance:HUMANA SCHUBERTDOB: Community COMMERCIALPolicy [id number] Hospital Number: Repository [id number] Date:7667-93-75JM[address] [address]PA: 03/25/2018 Tertiary NOT GIVENUNK [place] Insurance:SELF PAY [facility] Hospital Number: Effective Repository Date:2018-03-25 03/14/2018 CUONG Chowdhury Primary CUONG Short [id number] Insurance:MEDICARE SCHUBERTDOB: Community [place] PART A BPolicy Number: [id number], [place] [id number] Repository 53585Wqu: 330) Date:2018-02-286905 () 03/14/2018 Secondary CUONG L [place] Insurance:HUMANA SCHUBERTDOB: Community COMMERCIALPolicy [id number] Hospital Number: Repository [id number] Date:4496-03-61PF[address] [address]GI: 03/14/2018 Tertiary NOT GIVENUNK [place] Insurance:SELF PAY [facility] Hospital Number: Effective Repository Date:2018-02-28 02/28/2018 CUONG L Primary CUONG Rojooster [id number] Insurance:MEDICARE SCHUBERTDOB: Community [place] PART A BPolicy Number: [id number], [place] [id number] Repository 98785Nod: 330) Date:2009-04-056112 () 02/28/2018 Secondary CUONG L [place] Insurance:HUMANA SCHUBERTDOB: [facility] [id number] Hospital Number: Repository [id number] Date:3862-13-57CL [address] [address]EV: 02/28/2018 Tertiary NOT GIVENUNK [place] Insurance:SELF PAY [facility] Hospital Number: Effective Repository Date:2018-02-03 02/28/2018 CUONG L Primary CUONG Chowdhury [place] [id number] Insurance:MEDICARE SCHUBERTDOB: Community [place] PART A BPolicy Number: [id number], [place] [id number] Repository 04847Dbq: 330) Date:2018-02-141907 () 02/28/2018 Secondary CUONG L [place] Insurance:HUMANA SCHUBERTDOB: [facility] COMMERCIALPolicy [id number] Hospital Number: Repository [id number] Date:5979-05-54ED [address] [address]LG: 02/28/2018 Tertiary NOT GIVENUNK [place] Insurance:SELF PAY [facility] Hospital Number: Effective Repository Date:2018-02-14 02/27/2018 CUONG Chowdhury Primary CUONG Short [id number] Insurance:MEDICARE SCHUBERTDOB: Community [place] PART A BPolicy Number: [id number], [place] [id number] Repository 22034Ujn: (339) Date:2018-02-265893 () 02/27/2018 Secondary CUONG Chowdhury [place] Insurance:HUMANA SCHUBERTDOB: [facility] [id number] Hospital Number: Repository [id number] Date:0210-35-05ZS [address] [address]MH: 02/27/2018 Tertiary NOT GIVENUNK [place] Insurance:SELF PAY [facility] Hospital Number: Effective Repository Date:2018-02-26 02/24/2018 CUONG Chowdhury Primary CUONG Rojooster [id number] Insurance:MEDICARE SCHUBERTDOB: Community [place] PART A BPolicy Number: [id number], [place] [id number] Repository 07628Zqs: (079) Date:2018-02-141640 () 02/24/2018 Secondary CUONG Chowdhury [place] Insurance:HUMANA SCHUBERTDOB: [facility] [id number] Hospital Number: Repository [id number] Date:0514-66-97DV [address] [place] [address]IC: 02/24/2018 Tertiary NOT GIVENUNK [place] Insurance:SELF PAY [facility] Hospital Number: Effective Repository Date:2018-02-14 02/21/2018 CUONG Chowdhury Primary CUONG Short [id number] Insurance:MEDICARE SCHUBERTDOB: Community [place] PART A BPolicy Number: [id number], [place] [id number] Repository 96060Dxh: (632) Date:2018-02-214653 (HP) 02/21/2018 Secondary CUONG L [place] Insurance:HUMANA SCHUBERTDOB: Community COMMERCIALPolicy [id number] Hospital Number: Repository [id number] Date:2074-07-02EK[address] [address]QC: 02/21/2018 Tertiary NOT GIVENUNK [place] Insurance:SELF PAY [facility] Hospital Number: Effective Repository Date:2018-02-21 02/20/2018 CUONG L Primary CUONG Rojooster [id number] Insurance:MEDICARE SCHUBERTDOB: Community [place] PART A BPolicy Number: [id number], [place] [id number] Repository 90759Aaa: (951) Date:2018-02-20 2016042 () 02/20/2018 Secondary CUONG L [place] Insurance:HUMANA SCHUBERTDOB: [facility] [id number] Hospital Number: Repository [id number] Date:2113-47-87OW [address] [address]HO: 02/20/2018 Tertiary NOT GIVENUNK [place] Insurance:SELF PAY [facility] Hospital Number: Effective Repository Date:2018-02-20 02/14/2018 CUONG L Primary CUONG Rojooster [id number] Insurance:MEDICARE SCHUBERTDOB: Community [place] PART A BPolicy Number: [id number], [place] [id number] Repository 49324Cig: 330) Date:2018-01-316175 (HP) 02/14/2018 Secondary CUONG L [place] Insurance:HUMANA SCHUBERTDOB: Community COMMERCIALPolicy [id number] Hospital Number: Repository [id number] Date:2487-67-60YL[address] [address]KN: 02/14/2018 Tertiary NOT GIVENUNK [place] Insurance:SELF PAY [facility] Hospital Number: Effective Repository Date:2018-01-31 01/31/2018 CUONG L Primary CUONG Chowdhury [place] [id number] Insurance:MEDICARE SCHUBERTDOB: Community [place] PART A BPolicy Number: [id number], [place] [id number] Repository 52580Jsq: (002) Date:2009-04-059506 () 01/31/2018 Secondary CUONG L [place] Insurance:HUMANA SCHUBERTDOB: [facility] [id number] Hospital Number: Repository [id number] Date:3360-11-35XY [address] [address]ZY: 01/31/2018 Tertiary NOT GIVENUNK [place] Insurance:SELF PAY [facility] Hospital Number: Effective Repository Date:2018-01-04 01/31/2018 CUONG L Primary CUONG L [place] [id number] Insurance:MEDICARE SCHUBERTDOB: Community [place] PART A BPolicy Number: [id number], [place] [id number] Repository 14334Fpt: (797) Date:2018-01-171167 () 01/31/2018 Secondary CUONG L [place] Insurance:HUMANA SCHUBERTDOB: [facility] [id number] Hospital Number: Repository [id number] Date:6792-19-86MN[address] [address]DA: 01/31/2018 Tertiary NOT GIVENUNK [place] Insurance:SELF PAY [facility] Hospital Number: Effective Repository Date:2018-01-17 01/23/2018 CUONG L Primary CUONG L [place] [id number] Insurance:MEDICARE SCHUBERTDOB: Community [place] PART A BPolicy Number: [id number], [place] [id number] Repository 09575Zqm: 330) Date:2009-04-055775 () 01/23/2018 Secondary CUONG L [place] Insurance:HUMANA SCHUBERTDOB: [facility] [id number] Hospital Number: Repository [id number] Date:7063-03-32ZC[address] [address]FR: 01/23/2018 Tertiary NOT GIVENUNK [place] Insurance:SELF PAY [facility] Hospital Number: Effective Repository Date:2018-01-23 01/23/2018 CUONG [place] Primary CUONG Short [id number] Insurance:MEDICARE SCHUBERTDOB: Community [place] PART A BPolicy Number: [id number], [place] [id number] Repository 57111Ksk: (971) Date:2009-04-050351 () 01/23/2018 Secondary CUONG [place] Insurance:HUMANA SCHUBERTDOB: [facility] [id number] Hospital Number: Repository [id number] Date:1627-96-04BG [address] [address]FP: 01/23/2018 Tertiary NOT GIVENUNK [place] Insurance:SELF PAY [facility] Hospital Number: Effective Repository Date:2018-01-23 01/20/2018 CUONG Chowdh[place] Primary CUONG Short [id number] Insurance:MEDICARE SCHUBERTDOB: Community [place] PART A BPolicy Number: [id number], [place] [id number] Repository 82240Pgw: (012) Date:2018-01-200829 () 01/20/2018 Secondary CUONG Chowdhury [place] Insurance:HUMANA SCHUBERTDOB: [facility] [id number] Hospital Number: Repository [id number] Date:6050-74-63NA [address] [address]SB: 01/20/2018 Tertiary NOT GIVENUNK [place] Insurance:SELF PAY [facility] Hospital Number: Effective Repository Date:2018-01-20 01/17/2018 CUONG [place] Primary CUONG Short [id number] Insurance:MEDICARE SCHUBERTDOB: Community [place] PART A BPolicy Number: [id number], [place] [id number] Repository 64847Cxz: 330) Date:2017-12-275949 () 01/17/2018 Secondary CUONG L [place] Insurance:HUMANA SCHUBERTDOB: Community COMMERCIALPolicy [id number] Hospital Number: Repository [id number] Date:9615-39-56PI[address] [address]JC: 01/17/2018 Tertiary NOT GIVENUNK [place] Insurance:SELF PAY [facility] Hospital Number: Effective Repository Date:2017-12-27 01/10/2018 CUONG L Primary CUONG [place] [id number] Insurance:MEDICARE SCHUBERTDOB: Community [place] PART A BPolicy Number: [id number], [place] [id number] Repository 09278Dsh: (241) Date:2018-01-03 [id number] () 01/10/2018 Secondary CUONG L [place] Insurance:HUMANA SCHUBERTDOB: [facility] COMMERCIALPolicy [id number] Hospital Number: Repository [id number] Date:4890-03-81CU [address] [address]PY: 01/10/2018 Tertiary NOT GIVENUNK [place] Insurance:SELF PAY [facility] Hospital Number: Effective Repository Date:2018-01-03 01/03/2018 CUONG L Primary CUONG Chowdhury [place] [id number] Insurance:MEDICARE SCHUBERTDOB: Community [place] PART A BPolicy Number: [id number], [place] [id number] Repository 55278Tgs: 330) Date:2009-04-05 [id number] () 01/03/2018 Secondary CUONG L [place] Insurance:HUMANA SCHUBERTDOB: Community COMMERCIALPolicy [id number] Hospital Number: Repository [id number] Date:1562-90-92ZD[address] [address]CD: 01/03/2018 Tertiary NOT GIVENUNK [place] Insurance:SELF PAY [facility] Hospital Number: Effective Repository Date:2017-12-04 01/03/2018 CUONG L Primary CUONG Chowdhury [place] [id number] Insurance:MEDICARE SCHUBERTDOB: Community [place] PART A BPolicy Number: [id number], [place] [id number] Repository 57304Nzy: 330) Date:2018-01-03 [id number] () 01/03/2018 Secondary CUONG L [place] Insurance:HUMANA SCHUBERTDOB: [facility] [id number] Hospital Number: Repository [id number] Date:6602-31-71IH [address] [address]TV: 01/03/2018 Tertiary NOT GIVENUNK [place] Insurance:SELF PAY [facility] Number: Effective Repository Date:2018-01-03 12/27/2017 CUONG L Primary CUONG L [place] [id number] Insurance:MEDICARE SCHUBERTDOB: Community [place] PART A BPolicy Number: [id number], [place] [id number] Repository 91414Hrd: 330) Date:2017-12-132704 (HP) 12/27/2017 Secondary CUONG L [place] Insurance:HUMANA SCHUBERTDOB: [facility] [id number] Hospital Number: Repository [id number] Date:1143-39-73ID[address] [address]KL: 12/27/2017 Tertiary NOT GIVENUNK [place] Insurance:SELF PAY [facility] Hospital Number: Effective Repository Date:2017-12-13 12/13/2017 CUONG L Primary CUONG L [place] [id number] Insurance:MEDICARE SCHUBERTDOB: Community [place] PART A BPolicy Number: [id number], [place] [id number] Repository 08105Xtc: 330) Date:2017-11-29 [phone] () 12/13/2017 Secondary CUONG L [place] Insurance:HUMANA SCHUBERTDOB: [facility] [id number] Hospital Number: Repository [id number] Date:6088-19-93WB[address] [address]VL: 12/13/2017 Tertiary NOT GIVENUNK [place] Insurance:SELF PAY [facility] Number: Effective Repository Date:2017-11-29 12/12/2017 CUONG Chowdh[place] Primary CUONG [facility] [facility]:MEDICARE A [facility]: [place] [id number] AND BPolicy Number: [id number] [facility] [id number] [address] [place], [place] Date:0267-28-68Tmxm [place], [place] Repository [address]Sah: (501) Name:CARE 41963Jrz: () [phone] () 12/12/[address] [facility] [place] Number: [id number] [facility] [id number] 9 [facility] Date:5353-19-38Lkup [place] Repository Name:MANAGED CARE 27312Oql: () 12/12/2017 CUONG Chowdhury Primary CUONG Chowdhury [facility]: Insurance:MEDICARE [facility]: [facility] PART BPolicy Number: [id number] Repository ALYSA [id number] 9 [place], [place] Date:2017-12-12 [place] [address]~JAYME@ 9008-48-01Ctfu 55911Dkk: (777) Rex: Name:[facility] [phone] Administrators LLCPO (HP)Tel: (000) (HP)Tel: (999) Anitha [address]308Qnfecfsab, [place] [phone] (WP) [phone] (WP) 497[address]SI: 12/12/2017 Secondary [facility] Insurance:HUMANA [facility]ERTDOB: [facility] [id number] Repository Number: [address] [place] [id number] [place] Date:2017-12-12 15276Hxv: (487) 4414-9572-64-54Xqva [phone] Name:[facility] Anitha ()Tel: (777) [address] [place] [address] [phone] () [address]XX: 12/02/2017 CUONG L Primary CUONG Short [id number] Insurance:MEDICARE SCHUBERTDOB: [facility] PART A BPolicy Number: [id number], [place] [id number] Repository 64111Jee: (180) Date:2009-04-05 [id number] () 12/02/2017 Secondary CUONG [place]dh[place] Insurance:HUMANA SCHUBERTDOB: [facility] [id number] Hospital Number: Repository [id number] Date:0535-37-04ZC[address] [address]TH: 12/02/2017 Tertiary NOT GIVENUNK [place] Insurance:SELF PAY [facility] Number: Effective Repository Date:2017-11-03 11/29/2017 CUONG L Primary CUONG Short [id number] Insurance:MEDICARE [facility]ERTDOB: [facility] BPolicy Number: [id number], [place] [id number] Repository 90930Ccv: (112) Date:2017-11-15 [phone] () 11/29/2017 Secondary COUNG L [place] Insurance:HUMANA SCHUBERTDOB: [facility] [id number] Hospital Number: Repository [id number] Date:9010-11-07YQ [address] [address]CE: 11/29/2017 Tertiary NOT GIVENUNK [place] Insurance:SELF PAY [facility] Hospital Number: Effective Repository Date:2017-11-15 11/28/2017 CUONG L Primary CUONG Chowdhury [facility] SCHUBERTDOB: Insurance:MEDICARE A SCHUBERTDOB: [place] [id number] AND BPolicy Number: [id number] [id number] [address] [place], [place] Date:0224-31-16Mvts [place], [place] Repository [address]Vxe: (322) Name:CARE 11259Dnn: (HP) 0875 (HP) 11/28/[address] [facility] Insurance:HUMANAPolicy SCHUBERTDOB: University Number: [id number] [place] [address] [id number] 9 [facility] Date:0740-31-99Zqxx [place], [place] Repository Name:MANAGED CARE 15891Uhk: (HP) 11/27/2017 CUONG Chowdhury Primary CUONG Short [id number] Insurance:MEDICARE SCHUBERTDOB: [facility] PART A BPolicy Number: [id number], [place] [id number] Repository 22035Jtx: 330) Date:2017-11-194794 () 11/27/2017 Secondary CUONG [place]dhury [place] Insurance:HUMANA SCHUBERTDOB: [facility] [id number] Hospital Number: Repository [id number] Date:1545-31-55OQ[address] [address]LZ: 11/27/2017 Tertiary NOT GIVENUNK [place] Insurance:SELF PAY [facility] Hospital Number: Effective Repository Date:2017-11-19 11/27/2017 CUONG L Primary CUONG Short [id number] Insurance:MEDICARE SCHUBERTDOB: [facility] PART A BPolicy Number: [id number], [place] [id number] Repository [address]Dhr: (487) Date:2009-04-054917 () 11/27/2017 Secondary CUONG Chowdhury [place] Insurance:HUMANA SCHUBERTDOB: [facility] [id number] Hospital Number: Repository [id number] Date:7285-71-93SD[address] [address]GR: 11/27/2017 Tertiary NOT GIVENUNK [place] Insurance:SELF PAY [facility] Hospital Number: Effective Repository Date:2017-11-27 11/27/2017 CUONG Chowdhury Primary CUONG Short [id number] Insurance:MEDICARE SCHUBERTDOB: Community [place] PART A BPolicy Number: [id number], [place] [id number] Repository 801[address]Jqn: (330) Date:2009-04-057515 () 11/27/2017 Secondary CUONG L [place] Insurance:HUMANA SCHUBERTDOB: [facility] [id number] Hospital Number: Repository [id number] Date:2738-84-18HB [address] [address]TF: 11/27/2017 Tertiary NOT GIVENUNK [place] Insurance:SELF PAY [facility] Hospital Number: Effective Repository Date:2017-11-27 11/19/2017 CUONG L Primary CUONG Rojooster [id number] Insurance:MEDICARE SCHUBERTDOB: [facility] ALYSA PART A BPolicy Number: [id number], [place] [id number] Repository 409[address]Kbf: 330) Date:2017-08-276985 () 11/19/2017 Secondary CUONG Chowdhury [place] Insurance:HUMANA SCHUBERTDOB: [facility] [id number] Hospital Number: Repository [id number] Date:6465-16-71LM [address] [address]FL: 11/19/2017 Tertiary NOT GIVENUNK [place] Insurance:SELF PAY [facility] Hospital Number: Effective Repository Date:2017-11-19 11/15/2017 CUONG L Primary CUONG Rojooster [id number] Insurance:MEDICARE SCHUBERTDOB: [facility] ALYSA PART A BPolicy Number: [id number], [place] [id number] Repository 298[address]Gpy: (330) Date:2017-11-010471 () 11/15/2017 Secondary CUONG L [place] Insurance:HUMANA SCHUBERTDOB: Community COMMERCIALPolicy [id number] Hospital Number: Repository [id number] Date:7149-66-47DQ [address] [address]OD: 11/15/2017 Tertiary NOT GIVENUNK [place] Insurance:SELF PAY [facility] Hospital Number: Effective Repository Date:2017-11-01 11/01/2017 CUONG L Primary CUONG Short [id number] Insurance:MEDICARE SCHUBERTDOB: Community [place] PART A BPolicy Number: [id number], [place] [id number] Repository 459[address]Pzr: (088) Date:2009-04-05 [phone] () 11/01/2017 Secondary CUONG L [place] Insurance:HUMANA SCHUBERTDOB: Community COMMERCIALPolicy [id number] Hospital Number: Repository [id number] Date:5018-82-33SY [address] [address]EA: 11/01/2017 Tertiary NOT GIVENUNK [place] Insurance:SELF PAY [facility] Hospital Number: Effective Repository Date:2017-10-04 11/01/2017 CUONG L Primary CUONG Short [id number] Insurance:MEDICARE SCHUBERTDOB: Community [place] PART A BPolicy Number: [id number], [place] [id number] Repository [address]Ude: (651) Date:2017-10-165830 () 11/01/2017 Secondary CUONG L [place] Insurance:HUMANA SCHUBERTDOB: Community COMMERCIALPolicy [id number] Hospital Number: Repository [id number] Date:9904-39-89AG [address] [address]WQ: 11/01/2017 Tertiary NOT GIVENUNK [place] Insurance:SELF PAY [facility] Hospital Number: Effective Repository Date:2017-10-16 10/16/2017 CUONG L Primary CUONG Short [id number] Insurance:MEDICARE SCHUBERTDOB: Community [place] PART A BPolicy Number: [id number], [place] [id number] Repository 20687Gkj: 330) Date:2017-10-010066 () 10/16/2017 Secondary CUONG Chowdhury [place] Insurance:HUMANA SCHUBERTDOB: [facility] [id number] Hospital Number: Repository [id number] Date:9649-69-11NA[address] [address]EP: 10/16/2017 Tertiary NOT GIVENUNK [place] Insurance:SELF PAY [facility] Hospital Number: Effective Repository Date:2017-10-01 10/09/2017 CUONG Chowdhury Primary CUONG Short [id number] Insurance:MEDICARE SCHUBERTDOB: Community [place] PART A BPolicy Number: [id number], [place] [id number] Repository [address]Qih: 330) Date:2009-04-051280 () 10/09/2017 Secondary CUONG Chowdhury [place] Insurance:HUMANA SCHUBERTDOB: [facility] COMMERCIALPolicy [id number] Hospital Number: Repository [id number] Date:4959-55-19OM[address] [address]FS: 10/09/2017 Tertiary NOT GIVENUNK [place] Insurance:SELF PAY [facility] Hospital Number: Effective Repository Date:2017-10-09 10/02/2017 CUONG L Primary CUONG Rojooster [id number] Insurance:MEDICARE SCHUBERTDOB: Community [place] PART A BPolicy Number: [id number], [place] [id number] Repository [address]Iuo: 330) Date:2009-04-05359 () 10/02/2017 Secondary CUONG Chowdhury [place] Insurance:HUMANA SCHUBERTDOB: [facility] [id number] Hospital Number: Repository [id number] Date:8481-03-66SZ [address] [address]IV: 10/02/2017 Tertiary NOT GIVENUNK [place] Insurance:SELF PAY [facility] Hospital Number: Effective Repository Date:2017-09-03 10/02/2017 CUONG Chowdhury Primary CUONG Short [id number] Insurance:MEDICARE SCHUBERTDOB: Community [place] PART A BPolicy Number: [id number], [place] [id number] Repository [address]52[address]Nkx: (330) Date:2009-04-057234 () 10/02/2017 Secondary CUONG Chowdhury [place] Insurance:HUMANA SCHUBERTDOB: Community COMMERCIALPolicy [id number] Hospital Number: Repository [id number] Date:3819-96-20IE[address] [address]TQ: 10/02/2017 Tertiary NOT GIVENUNK [place] Insurance:SELF PAY [facility] Hospital Number: Effective Repository Date:2017-10-02 10/01/2017 CUONG Chowdhury Primary CUONG Rojooster [id number] Insurance:MEDICARE SCHUBERTDOB: Community [place] PART A BPolicy Number: [id number], [place] [id number] Repository [address]Bei: 330) Date:2017-09-172701 () 10/01/2017 Secondary CUONG Chowdhury [place] Insurance:HUMANA SCHUBERTDOB: [facility] [id number] Hospital Number: Repository [id number] Date:3062-82-65YA[address] [address]YR: 10/01/2017 Tertiary NOT GIVENUNK [place] Insurance:SELF PAY [facility] Hospital Number: Effective Repository Date:2017-09-17 09/25/2017 CUONG Chowdhury Primary CUONG Short [id number] Insurance:MEDICARE SCHUBERTDOB: Community [place] PART A BPolicy Number: [id number], [place] [id number] Repository [address]Djb: (330) Date:2009-04-050861 () 09/25/2017 Secondary CUONG Chowdhury [place] Insurance:HUMANA SCHUBERTDOB: Community COMMERCIALPolicy [id number] Hospital Number: Repository [id number] Date:[id number] [id number]: 09/25/2017 Tertiary NOT GIVENUNK [place] Insurance:SELF PAY [facility] Number: Effective Repository Date:2017-09-25 09/25/2017 CUONG [place] Primary CUONG Short [id number] Insurance:MEDICARE SCHUBERTDOB: Community ALYSA PART A BPolicy Number: [id number] [id number] Repository [id number]: [phone]) Date:2009-04-05 [id number] () 09/25/2017 Secondary CUONG Chowdhury [place] Insurance:HUMANA SCHUBERTDOB: Community COMMERCIALPolicy [id number] Hospital Number: Repository [id number] Date:[id number] [address]NM: 09/25/2017 Tertiary NOT GIVENUNK [place] Insurance:SELF PAY [facility] Number: Effective Repository Date:2017-09-25 09/18/2017 CUONG Chowdhury Primary CUONG Short [id number] Insurance:MEDICARE SCHUBERTDOB: Community [place] PART A BPolicy Number: [id number], [place] [id number] Repository 67229Bph: 330) Date:2009-04-051726 () 09/18/2017 Secondary CUONG Chowdhury [place] Insurance:HUMANA SCHUBERTDOB: Community COMMERCIALPolicy [id number] Hospital Number: Repository [id number] Date:6354-02-24FQ[address] [address]HU: 09/18/2017 Tertiary NOT GIVENUNK [place] Insurance:SELF PAY [facility] Hospital Number: Effective Repository Date:2017-09-18 09/17/2017 CUONG Chowdhury Primary CUONG Short [id number] Insurance:MEDICARE SCHUBERTDOB: [facility] [place] PART A BPolicy Number: [id number], [place] [id number] Repository [address]Tcp: 330) Date:2017-09-039055 () 09/17/2017 Secondary CUONG Chowdhury [place] Insurance:HUMANA SCHUBERTDOB: Community COMMERCIALPolicy [id number] Hospital Number: Repository [id number] Date:4665-84-65OS[address] [address]XL: 09/17/2017 Tertiary NOT GIVENUNK [place] Insurance:SELF PAY [facility] Hospital Number: Effective Repository Date:2017-09-03 09/11/2017 CUONG Chowdhury Primary CUONG Short [id number] Insurance:MEDICARE SCHUBERTDOB: Community [place] PART A BPolicy Number: [id number], [place] [id number] Repository [address]28[address]Zye: 330) Date:2009-04-050080 () 09/11/2017 Secondary CUONG L [place] Insurance:HUMANA SCHUBERTDOB: [facility] [id number] Hospital Number: Repository [id number] Date:7521-74-16MI[address] [address]OJ: 09/11/2017 Tertiary NOT GIVENUNK [place] Insurance:SELF PAY [facility] Number: Effective Repository Date:2017-09-11 09/05/2017 CUONG L Primary CUONG Chowdhury [place] [id number] Insurance:MEDICARE SCHUBERTDOB: Community [place] PART A BPolicy Number: [id number], [place] [id number] Repository [address]Ney: 330) Date:2009-04-051308 () 09/05/2017 Secondary CUONG L [place] Insurance:HUMANA SCHUBERTDOB: [facility] COMMERCIALPolicy [id number] Hospital Number: Repository [id number] Date:8455-93-16WQ84 [address] [address]MO: 09/05/2017 Tertiary NOT GIVENUNK [place] Insurance:SELF PAY [facility] Hospital Number: Effective Repository Date:2017-09-05 09/03/2017 CUONG Chowdhury Primary CUONG Short [id number] Insurance:MEDICARE SCHUBERTDOB: Community [place] PART A BPolicy Number: [id number], [place] [id number] Repository [address]87[address]Pmh: 330) Date:2017-08-205193 (HP) 09/03/2017 Secondary CUONG Chowdhury [place] Insurance:HUMANA SCHUBERTDOB: Community COMMERCIALPolic [id number] Hospital Number: Repository [id number] Date:6660-63-96DK [address] [place] [address]WN: 09/03/2017 Tertiary NOT GIVENUNK [place] Insurance:SELF PAY [facility] Hospital Number: Effective Repository Date:2017-08-20 08/30/2017 CUONG Chowdhury Primary CUONG Rojooster [id number] Insurance:MEDICARE SCHUBERTDOB: [facility] A BPolicy Number: [id number] [place], [place] [id number] Repository [address]Ojo: (958) Date:2017-08-306953 () 08/30/2017 Secondary CUONG Chowdhury [place] Insurance:HUMANA SCHUBERTDOB: [facility] COMMERCIALPolic [id number] Hospital Number: Repository [id number] Date:8106-53-82UN[address] [address]OK: 08/30/2017 Tertiary NOT GIVENUNK [place] Insurance:SELF PAY [facility] Number: Effective Repository Date:2017-08-30 08/29/2017 CUONG Chowdhury Primary CUONG Chowdhury [facility] SCHUBERTDOB: Insurance:MEDICARE A SCHUBERTDOB: [place] [id number] AND BPolicy Number: [id number] [place] [address] [id number] [place] [address] Date:7734-17-64SneuDoss, [place] Repository 49644Etd: (561) Name:CARE 61093Ndh: (HP) [phone] () 08/29/[address] [facility] Insurance:HUMANAPolicy SCHUBERTDOB: University Number: [id number] [place] [address] [id number] [place] [address] Date:1560-03-58PcefDoss, [place] Repository Name:MANAGED CARE [id number]: () 08/28/2017 CUONG L Primary CUONG Short [id number] Insurance:MEDICARE SCHUBERTDOB: [facility] PART A BPolicy Number: [id number] [place], [place] [id number] Repository [address]Oee: 330) Date:2009-04-058230 () 08/28/2017 Secondary CUONG L [place] Insurance:HUMANA SCHUBERTDOB: [facility] [id number] Hospital Number: Repository [id number] Date:5897-07-51SI[address] [address]VQ: 08/28/2017 Tertiary NOT GIVENUNK [place] Insurance:SELF PAY [facility] Number: Effective Repository Date:2017-08-04 08/28/2017 CUONG L Primary CUONG Chowdhury [place] [id number] Insurance:MEDICARE SCHUBERTDOB: [facility] PART A BPolicy Number: [id number], [place] [id number] Repository 33648Sho: 330) Date:2009-04-052689 () 08/28/2017 Secondary CUONG L [place] Insurance:HUMANA SCHUBERTDOB: [place] [id number] Hospital Number: Repository [id number] Date:0616-71-25DU[address] [address]ZE: 08/28/2017 Tertiary NOT GIVENUNK [place] Insurance:SELF PAY [facility] Number: Effective Repository Date:2017-08-28 08/27/2017 CUONG L Primary CUONG Chowdhury [place] [id number] Insurance:MEDICARE SCHUBERTDOB: Community [place] PART A BPolicy Number: [id number] [place], [place] [id number] Repository [address]Tdu: 330) Date:2017-07-03-4759 () 08/27/2017 Secondary CUONG L [place] Insurance:HUMANA SCHUBERTDOB: [facility] [id number] Hospital Number: Repository [id number] Date:0523-10-47YP [address] [address]XP: 08/27/2017 Tertiary NOT GIVENUNK [place] Insurance:SELF PAY [facility] Number: Effective Repository Date:2017-08-27 08/26/2017 Cuong L Primary Cuong Short [id number] Insurance:MEDICARE SchubertDOB: [facility] PART A BPolicy Number: [id number], [place] [id number] Repository [address]Asj: 330) Date:2017-08-26 [phone] () 08/26/2017 Secondary Cuong [place]dhury [place] Insurance:HUMANA SchubertDOB: [facility] [id number] Hospital Number: Repository [id number] Date:8215-47-13MS[address] [address]OM: 08/26/2017 Tertiary NOT GIVENUNK [place] Insurance:SELF PAY [facility] Number: Effective Repository Date:2017-08-26 08/22/2017 Cuong L Primary Cuong [place]dhury [place] [id number] Insurance:MEDICARE SchubertDOB: [facility] A[place]sa PART A BPolicy Number: [id number], [place] [id number] Repository 44[address]Hml: 330) Date:2017-08-222447 (HP) 08/22/2017 Secondary Cuong L [place] Insurance:HUMANA SchubertDOB: [facility] [id number] Hospital Number: Repository [id number] Date:6948-81-70PX [address] [place] [address]GP: 08/22/2017 Tertiary NOT GIVENUNK [place] Insurance:SELF PAY [facility] Number: Effective Repository Date:2017-08-22 08/21/2017 CUONG Chowdhury Primary CUONG Short [id number] Insurance:MEDICARE SCHUBERTDOB: Community [place] PART A BPolicy Number: [id number], [place] [id number] Repository 640[address]Ljb: (652) Date:2009-04-05 [phone] () 08/21/2017 Secondary CUONG [place] Insurance:HUMANA SCHUBERTDOB: [facility] [id number] Hospital Number: Repository [id number] Date:4693-50-34HV [address] [place] [address]KM: 08/21/2017 Tertiary NOT GIVENUNK [place] Insurance:SELF PAY [facility] Number: Effective Repository Date:2017-08-21 08/20/2017 Cuong L Primary Cuong Short [id number] Insurance:MEDICARE SchubertDOB: [place] PART A BPolicy Number: [id number], [place] [id number] Repository 53[address]Pvq: (918) Date:2017-08-20 [id number] () 08/20/2017 Secondary Cuong Chowdhury [place] Insurance:HUMANA SchubertDOB: [facility] [id number] Hospital Number: Repository [id number] Date:1426-58-43VN [address] [place] [address]ZV: 08/20/2017 Tertiary NOT GIVENUNK [place] Insurance:SELF PAY [facility] Number: Effective Repository Date:2017-08-20 08/14/2017 Cuong L Primary Cuong Chowdhury [place] [id number] Insurance:MEDICARE SchubertDOB: Community [place] PART A BPolicy Number: [id number], [place] [id number] Repository 204[address]Hry: (155) Date:2017-07-19 [phone] (HP) 08/14/2017 Secondary Cuong Chowdhury [place] Insurance:HUMANA SchubertDOB: [facility] 3081-12-13KAK Hospital Number: Repository [id number] Date:6964-73-94MJ [address] [place] [address]HZ: 08/14/2017 Tertiary NOT GIVENUNK [place] Insurance:SELF PAY [facility] Hospital Number: Effective Repository Date:2017-08-04 08/07/2017 Cuong L Primary Cuong [place] [id number] Insurance:MEDICARE SchubertDOB: [facility] A[place] PART A olicy Number: [id number], [place] [id number] Repository 36392Slt: 330) Date:2009-04-05 [phone] () 08/07/2017 Secondary Cuong L [place] Insurance:HUMANA SchubertDOB: [facility] [id number] Hospital Number: Repository [id number] Date:1301-68-44YY [address] [place] [address]FD: 08/07/2017 Tertiary NOT GIVENUNK [place] Insurance:SELF PAY [facility] Number: Effective Repository Date:2017-08-07 08/06/2017 Cuong L Primary Cuong Chowdhury [place] [id number] Insurance:MEDICARE SchubertDOB: [facility] PART A BPolicy Number: [id number], [place] [id number] Repository 680[address]Swj: (708) Date:2017-07-23 [phone] (HP) 08/06/2017 Secondary Cuong L [place] Insurance:HUMANA SchubertDOB: [facility] [id number] Hospital Number: Repository [id number] Date:1967-90-28PE [address] [address]FN: 08/06/2017 Tertiary NOT GIVENUNK [place] Insurance:SELF PAY [facility] Number: Effective Repository Date:2017-07-23 08/02/2017 Cuong L Primary Cuong Chowdhury [place] [id number] Insurance:MEDICARE SchubertDOB: [facility] PART A BPolicy Number: [id number], [place] [id number] Repository 10[address]Adl: 330) Date:2009-04-05 [id number] () 08/02/2017 Secondary Cuong L [place] Insurance:HUMANA SchubertDOB: [facility] [id number] Hospital Number: Repository [id number] Date:6336-72-22JE[address] [address]NJ: 08/02/2017 Tertiary NOT GIVENUNK [place] Insurance:SELF PAY [facility] Number: Effective Repository Date:2017-07-04 07/30/2017 Cuong L Primary Cuong Chowdhury [place] [id number] Insurance:MEDICARE SchubertDOB: [facility] PART A BPolicy Number: [id number], [place] [id number] Repository 397[address]Epz: 330) Date:2017-07-19 [id number] () 07/30/2017 Secondary Cuong Chowdhury [place] Insurance:HUMANA SchubertDOB: [facility] [id number] Hospital Number: Repository [id number] Date:7644-28-47IP[address] [address]EE: 07/30/2017 Tertiary NOT GIVENUNK [place] Insurance:SELF PAY [facility] Hospital Number: Effective Repository Date:2017-07-19 07/24/2017 Cuong L Primary Cuong Chowdhury [place] [id number] Insurance:MEDICARE SchubertDOB: [facility] PART A BPolicy Number: [id number], [place] [id number] Repository [address]Laf: 330) Date:2017-07-249009 (HP) 07/24/2017 Secondary Cuong L [place] Insurance:HUMANA SchubertDOB: [facility] [id number] Hospital Number: Repository [id number] Date:3320-26-99QN [address] [place] [address]OG: 07/24/2017 Tertiary NOT GIVENUNK [place] Insurance:SELF PAY [facility] Number: Effective Repository Date:2017-07-24 07/24/2017 Cuong Chowdhury Primary Cuong Short [id number] Insurance:MEDICARE SchubertDOB: [facility] [place] PART A BPolicy Number: [id number], [place] [id number] Repository 885[address]Dcd: (574) Date:2017-07-12 [phone] () 07/24/2017 Secondary Cuong [place]dhury [place] Insurance:HUMANA SchubertDOB: [facility] [id number] [place] [address] Number: Repository [id number] Date:3785-92-82MP [address] [place] [address]AV: 07/24/2017 Tertiary NOT GIVENUNK [place] Insurance:SELF PAY [facility] Number: Effective Repository Date:2017-07-12 07/23/2017 Cuong L Primary Cuong [place]dhury [place] [id number] Insurance:MEDICARE SchubertDOB: [facility] [place] PART A BPolicy Number: [id number] [place] [address] [id number] Repository 87869Vai: (425) Date:2017-07-11 [id number] () 07/23/2017 Secondary Cuong L [place] Insurance:HUMANA SchubertDOB: [facility] [id number] Hospital Number: Repository [id number] Date:9216-14-41IN [address] [place] [address]MM: 07/23/2017 Tertiary NOT GIVENUNK [place] Insurance:SELF PAY [facility] Number: Effective Repository Date:2017-07-11 07/22/2017 Cuong L Primary Cuong Chowdhury [place] [id number] Insurance:MEDICARE SchubertDOB: [facility] [place] PART A BPolicy Number: [id number], [place] [id number] Repository 163[address]Fhg: (810) Date:2017-07-221546 () 07/22/2017 Secondary Cuong Chowdhury [place] Insurance:HUMANA SchubertDOB: [facility] [id number] Hospital Number: Repository [id number] Date:9686-75-41TE [address] [place] [address]YL: 07/22/2017 Tertiary NOT GIVENUNK [place] Insurance:SELF PAY [facility] Hospital Number: Effective Repository Date:2017-07-22 07/17/2017 Cuong L Primary Cuong Chowdhury [place] [id number] Insurance:MEDICARE SchubertDOB: [facility] [place] PART A BPolicy Number: [id number], [place] [id number] Repository 34564Cmk: (734) Date:2017-07-177774 () 07/17/2017 Secondary Cuong L [place] Insurance:HUMANA SchubertDOB: [facility] [id number] Hospital Number: Repository [id number] Date:5067-81-30IN [address] [place] [address]FT: 07/17/2017 Tertiary NOT GIVENUNK [place] Insurance:SELF PAY [facility] Number: Effective Repository Date:2017-07-17 07/17/2017 Cuong L Primary Cuong [place]dhury [place] [id number] Insurance:MEDICARE SchubertDOB: [facility] PART A BPolicy Number: [id number], [place] [id number] Repository 36[address]Maz: (993) Date:2017-07-17 [id number] () 07/17/2017 Secondary Cuong L [place] Insurance:HUMANA SchubertDOB: [facility] 9635-75-55KLD Hospital Number: Repository [id number] Date:6351-26-57VY [address] [place] [address]JR: 07/17/2017 Tertiary NOT GIVENUNK [place] Insurance:SELF PAY [facility] Number: Effective Repository Date:2017-07-17 07/16/2017 Cuong L Primary Cuong [place]dhury [place] [id number] Insurance:MEDICARE SchubertDOB: [facility] PART A BPolicy Number: [id number], [place] [id number] Repository 440[address]Diz: (330) Date:2017-07-162575 () 07/16/2017 Secondary Cuong L [place] Insurance:HUMANA SchubertDOB: [facility] [id number] Hospital Number: Repository [id number] Date:3696-45-94VA [address] [place] [address]DS: 07/16/2017 Tertiary NOT GIVENUNK [place] Insurance:SELF PAY [facility] Number: Effective Repository Date:2017-07-16 07/04/2017 Cuong L Primary Cuong Chowdhury [place] [id number] Insurance:MEDICARE SchubertDOB: [facility] PART A BPolicy Number: [id number], [place] [id number] Repository 30640Dwz: (586) Date:2017-07-049547 () 07/04/2017 Secondary Cuong L [place] Insurance:HUMANA SchubertDOB: [facility] [id number] Hospital Number: Repository [id number] Date:5561-56-92HI[address] [address]CP: 07/04/2017 Tertiary NOT GIVENUNK [place] Insurance:SELF PAY [facility] Number: Effective Repository Date:2017-07-04 06/26/2017 CUONG L Primary CUONG Chowdhury [facility] SCHUBERTDOB: Insurance:MEDICARE A SCHUBERTDOB: [facility] [place] [id number] AND BPolicy Number: [id number] [id number] [address] [place] [address] Date:3261-60-87UwpeDoss, [place] Repository [address]Tip: (736) Name:[facility] [address]140Hyh: (HP) [phone] () 06/26/[address] [facility] Insurance:HUMANAPolicy SCHUBERTDOB: University Number: [id number] [id number] [address] [place] [address] Date:4055-79-17SpneDoss, [place] Repository Name:MANAGED CARE [id number]: () 06/21/2017 Cuong Chowdhury Primary Cuong Short [id number] Insurance:MEDICARE SchubertDOB: [facility] PART A BPolicy Number: [id number], [place] [id number] Repository 24531Zlp: (909) Date:2017-06-216194 () 06/21/2017 Secondary Cuong Short Insurance:HUMANA SchubertDOB: [facility] [id number] Hospital Number: Repository [id number] Date:4501-61-39CC[address] [address]HX: 06/21/2017 Tertiary NOT GIVENUNK [place] Insurance:SELF PAY [facility] Hospital Number: Effective Repository Date:2017-06-21 06/21/2017 Cuong L Primary Cuong Short [id number] Insurance:MEDICARE SchubertDOB: [facility] PART A BPolicy Number: [id number], [place] [id number] Repository 30707Osn: 330) Date:2017-06-210836 () 06/21/2017 Secondary Cuong Chowdhury [place] Insurance:HUMANA SchubertDOB: [facility] COMMERCIALPolicy [id number] Hospital Number: Repository [id number] Date:1516-04-35DK[address] [address]RP: 06/21/2017 Tertiary NOT GIVENUNK [place] Insurance:SELF PAY [facility] Hospital Number: Effective Repository Date:2017-06-21 06/21/2017 Cuong L Primary Cuong Short [id number] Insurance:MEDICARE SchubertDOB: [facility] [place] PART A BPolicy Number: [id number], [place] [id number] Repository 38[address]Eui: 330) Date:2017-06-211055 () 06/21/2017 Secondary Cuong Chowdhury [place] Insurance:HUMANA SchubertDOB: Community COMMERCIALPoly [id number] Hospital Number: Repository [id number] Date:0889-11-87IE[address] [address]XW: 06/21/2017 Tertiary NOT GIVENUNK [place] Insurance:SELF PAY [facility] Number: Effective Repository Date:2017-06-21 06/21/2017 Cuong Chowdhury Primary Cuong Short [id number] Insurance:MEDICARE SchubertDOB: [facility] [place] PART A BPolicy Number: [id number], [place] [id number] Repository 77783Jct: 330) Date:2017-06-210552 () 06/21/2017 Secondary Cuong Chowdhury [place] Insurance:HUMANA SchubertDOB: [facility] COMMERCIALPolicy [id number] Hospital Number: Repository [id number] Date:3910-89-94RE [address] [place] [address]BY: 06/21/2017 Tertiary NOT GIVENUNK [place] Insurance:SELF PAY [facility] Number: Effective Repository Date:2017-06-21 06/21/2017 Cuong L Primary Cuong Rojooster [id number] Insurance:MEDICARE SchubertDOB: [facility] [place] PART A BPolicy Number: [id number], [place] [id number] Repository 19[address]Rjx: 330) Date:2017-06-212403 () 06/21/2017 Secondary Cuong Chowdhury [place] Insurance:HUMANA SchubertDOB: [facility] [id number] Hospital Number: Repository [id number] Date:5904-21-18CM [address] [address]QQ: 06/21/2017 Tertiary NOT GIVENUNK [place] Insurance:SELF PAY [facility] Hospital Number: Effective Repository Date:2017-06-21 06/21/2017 Cuong Chowdhury Primary Cuong Short [id number] Insurance:MEDICARE SchubertDOB: [facility] [place] PART A BPolicy Number: [id number], [place] [id number] Repository [address]94[address]Aix: (330) Date:2017-06-213281 () 06/21/2017 Secondary Cuong Chowdhury [place] Insurance:HUMANA SchubertDOB: Community COMMERCIALPolicy [id number] Hospital Number: Repository [id number] Date:8482-57-43GI[address] [address]DU: 06/21/2017 Tertiary NOT GIVENUNK [place] Insurance:SELF PAY [facility] Hospital Number: Effective Repository Date:2017-06-21 06/21/2017 Cuong Chowdhury Primary Cuong Rojooster [id number] Insurance:MEDICARE SchubertDOB: [facility] [place] PART A BPolicy Number: [id number], [place] [id number] Repository 090[address]Pij: 330) Date:2017-06-216319 () 06/21/2017 Secondary Cuong Chowdhury [place] Insurance:HUMANA SchubertDOB: [facility] [id number] Hospital Number: Repository [id number] Date:1864-92-06OB[address] [address]WD: 06/21/2017 Tertiary NOT GIVENUNK [place] Insurance:SELF PAY [facility] Number: Effective Repository Date:2017-06-21 06/21/2017 Cuong Chowdhury Primary Cuong Short [id number] Insurance:MEDICARE SchubertDOB: [facility] [place] PART A BPolicy Number: [id number], [place] [id number] Repository 26541Zfo: (330) Date:2017-06-21916 () 06/21/2017 Secondary Cuong L [place] Insurance:HUMANA SchubertDOB: [facility] COMMERCIALPolicy [id number] Hospital Number: Repository [id number] Date:0062-84-07LD[address] [address]OT: 06/21/2017 Tertiary NOT GIVENUNK [place] Insurance:SELF PAY [facility] Hospital Number: Effective Repository Date:2017-06-21 06/21/2017 Cuong Chowdhury Primary Cuong Short [id number] Insurance:MEDICARE SchubertDOB: [facility] [place] PART A BPolicy Number: [id number], [place] [id number] Repository 690[address]Iwy: (144) Date:2017-06-21 [phone] () 06/21/2017 Secondary Cuong Chowdhury [place] Insurance:HUMANA SchubertDOB: [facility] COMMERCIALPolicy [id number] Hospital Number: Repository [id number] Date:3227-50-63CM[address] [address]YZ: 06/21/2017 Tertiary NOT GIVENUNK [place] Insurance:SELF PAY [facility] Hospital Number: Effective Repository Date:2017-06-21 06/21/2017 Cuong Chowdhury Primary Cuong Short [id number] Insurance:MEDICARE SchubertDOB: [facility] [place] PART A BPolicy Number: [id number], [place] [id number] Repository 19592Qqw: 330) Date:2017-06-216062 () 06/21/2017 Secondary Cuong Chowdhury [place] Insurance:HUMANA SchubertDOB: [facility] COMMERCIALPolicy [id number] Hospital Number: Repository [id number] Date:2064-77-43AQ[address] [address]YA: 06/21/2017 Tertiary NOT GIVENUNK [place] Insurance:SELF PAY [facility] Hospital Number: Effective Repository Date:2017-06-21 06/21/2017 Cuong Chowdhury Primary Cuong Short [id number] Insurance:MEDICARE SchubertDOB: [facility] [place] PART A BPolicy Number: [id number], [place] [id number] Repository 23[address]Eaf: (330) Date:2017-06-212364 () 06/21/2017 Secondary Cuong [place] Insurance:HUMANA SchubertDOB: Community COMMERCIALPolicy [id number] Hospital Number: Repository [id number] Date:9553-09-87II [address] [address]ZE: 06/21/2017 Tertiary NOT GIVENUNK [place] Insurance:SELF PAY [facility] Hospital Number: Effective Repository Date:2017-06-21 06/21/2017 Cuong Chowdhury Primary Cuong Short [id number] Insurance:MEDICARE SchubertDOB: Community [place] PART A BPolicy Number: [id number], [place] [id number] Repository 15853Cpz: 330) Date:2017-06-219456 (HP) 06/21/2017 Secondary Cuong L [place] Insurance:HUMANA SchubertDOB: [facility] COMMERCIALPolicy [id number] Hospital Number: Repository [id number] Date:0830-77-00HZ[address] [address]TL: 06/21/2017 Tertiary NOT GIVENUNK [place] Insurance:SELF PAY [facility] Number: Effective Repository Date:2017-06-21 06/21/2017 Cuong L Primary Cuong Rojooster [id number] Insurance:MEDICARE SchubertDOB: Community [place] PART A BPolicy Number: [id number], [place] [id number] Repository 39006Btg: 330) Date:2017-06-210330 (HP) 06/21/2017 Secondary Cuong L Han Insurance:HUMANA SchubertDOB: [facility] COMMERCIALPolicy [id number] Hospital Number: Repository [id number] Date:2564-72-14LQ[address] [address]ZX: 06/21/2017 Tertiary NOT GIVENUNK [place] Insurance:SELF PAY [facility] Hospital Number: Effective Repository Date:2017-06-21 06/21/2017 Cuong [place] Primary Cuong Short [id number] Insurance:MEDICARE SchubertDOB: Community [place] PART A BPolicy Number: [id number], [place] [id number] Repository 04593Eyr: (330) Date:2017-06-213724 () 06/21/2017 Secondary Cuong [place] Insurance:HUMANA SchubertDOB: [facility] [id number] Hospital Number: Repository [id number] Date:7152-18-25RO[address] [address]UP: 06/21/2017 Tertiary NOT GIVENUNK [place] Insurance:SELF PAY [facility] Hospital Number: Effective Repository Date:2017-06-21 06/21/2017 Cuong [place] Primary Cuong Rojooster [id number] Insurance:MEDICARE SchubertDOB: Community [place] PART A BPolicy Number: [id number], [place] [id number] Repository 436[address]Puh: 330) Date:2017-06-213341 () 06/21/2017 Secondary Cuong [place] Insurance:HUMANA SchubertDOB: [facility] [id number] Hospital Number: Repository [id number] Date:7438-39-36QJ[address] [address]WR: 06/21/2017 Tertiary NOT GIVENUNK [place] Insurance:SELF PAY [facility] Number: Effective Repository Date:2017-06-21 06/21/2017 Cuong [place] Primary Cuong Rojooster [id number] Insurance:MEDICARE SchubertDOB: Community [place] PART A BPolicy Number: [id number], [place] [id number] Repository 414[address]Wgn: (330) Date:2017-06-21042 () 06/21/2017 Secondary Cuong L Han Insurance:HUMANA SchubertDOB: Community COMMERCIALPolicy [id number] Hospital Number: Repository [id number] Date:8671-15-88WY[address] [address]OC: 06/21/2017 Tertiary NOT GIVENUNK [place] Insurance:SELF PAY [facility] Hospital Number: Effective Repository Date:2017-06-21 06/21/2017 Cuong [place] Primary Cuong Rojooster [id number] Insurance:MEDICARE SchubertDOB: [place] PART A BPolicy Number: [id number], [place] [id number] Repository 94[address]Aqh: (470) Date:2017-06-21 [phone] () 06/21/2017 Secondary Cuong L Han Insurance:HUMANA SchubertDOB: [facility] [id number] Hospital Number: Repository [id number] Date:1694-46-36FK[address] [address]GR: 06/21/2017 Tertiary NOT GIVENUNK Han Insurance:SELF PAY [facility] Hospital Number: Effective Repository Date:2017-06-21 06/21/2017 Cuong [place] Primary Cuong Short [id number] Insurance:MEDICARE SchubertDOB: Community [place] PART A BPolicy Number: [id number], [place] [id number] Repository 20340Xmn: 330) Date:2017-06-210846 (HP) 06/21/2017 Secondary Cuong [place] Insurance:HUMANA SchubertDOB: Community COMMERCIALPolicy [id number] Hospital Number: Repository [id number] Date:2636-22-90PL[address] [address]JJ: 06/21/2017 Tertiary NOT GIVENUNK Han Insurance:SELF PAY [facility] Hospital Number: Effective Repository Date:2017-06-21 06/17/2017 Cuong L Primary Cuong Short [id number] Insurance:MEDICARE SchubertDOB: Community [place] PART A BPolicy Number: [id number], [place] [id number] Repository [address]Glc: (330) Date:2017-06-033128 () 06/17/2017 Secondary Cuong L Han Insurance:HUMANA SchubertDOB: [facility] [id number] Hospital Number: Repository [id number] Date:0443-58-71JT [address] [place] [address]QW: 06/17/2017 Tertiary NOT GIVENUNK Han Insurance:SELF PAY [facility] Hospital Number: Effective Repository Date:2017-06-03 06/13/2017 CUONG [place] Primary CUONG [facility] [facility] SCHUBERTDOB: Insurance:MEDICARE A [facility] [place] [id number] AND BPolicy Number: [id number] [facility] [id number] [address] [place] [address] Date:8286-61-59Eafn [place], [place] Repository [address]38[address]Ggw: (330) Name:CARE [id number]: () [phone] () 06/13/[address] [facility] Insurance:HUMANAPolicy [facility] [place] Number: [id number] [facility] [id number] [address] [place] [address] Date:2393-69-12Ilmj [place], [place] Repository Name:MANAGED CARE [id number]: () 06/13/2017 CUONG [place] Primary CUONG [facility] [facility] SCHUBERTDOB: Insurance:MEDICARE A [facility] [place] [id number] AND BPolicy Number: [id number] [facility] [id number] [address] [place] [address] Date:5240-96-32Ogjr [place], [place] Repository 220[address]Izc: (330) Name:CARE [id number]: (HP) 4658 (HP) 06/13/[address] [facility] Insurance:HUMANAPolicy SCHUBERTDOB: University Number: [id number] [id number] [address] [place] [address] Date:4546-78-15XfxfD[place], [place] Repository Name:MANAGED CARE [id number]: () 06/07/2017 Cuong [place] Primary Cuong Short [id number] Insurance:MEDICARE SchubertDOB: [facility] PART A BPolicy Number: [id number], [place] [id number] Repository 77253Zkm: (157) Date:2009-04-05 [phone] () 06/07/2017 Secondary Cuong Short Insurance:HUMANA SchubertDOB: [facility] [id number] Hospital Number: Repository [id number] Date:6831-82-33KX[address] [address]TF: 06/07/2017 Tertiary NOT GIVENUNK [place] Insurance:SELF PAY [facility] Hospital Number: Effective Repository Date:2017-06-06 06/03/2017 Cuong [place] Primary Cuong Short [id number] Insurance:MEDICARE SchubertDOB: [facility] PART A BPolicy Number: [id number], [place] [id number] Repository 46484Xln: (481) Date:2017-05-20 [phone] () 06/03/2017 Secondary Cuong [place] Insurance:HUMANA SchubertDOB: [facility] [id number] Hospital Number: Repository [id number] Date:5173-28-56QR [address] [place] [address]SU: 06/03/2017 Tertiary NOT GIVENUNK [place] Insurance:SELF PAY [facility] Hospital Number: Effective Repository Date:2017-05-20 05/31/2017 Cuong L Primary Cuong Short [id number] Insurance:MEDICARE SchubertDOB: [facility] PART A BPolicy Number: [id number], [place] [id number] Repository 807[address]Tja: 330) Date:2009-04-056441 () 05/31/2017 Secondary Cuong Short Insurance:HUMANA SchubertDOB: [facility] [id number] Hospital Number: Repository [id number] Date:4404-54-23YW [address] [address]LX: 05/31/2017 Tertiary NOT LORIUNK Han Insurance:SELF PAY [facility] Number: Effective Repository Date:2017-05-06 05/23/2017 CUONG [place] Primary CUONG Chowdh[facility] SCHUBERTDOB: Insurance:MEDICARE A [facility]: [place] [id number] AND BPolicy Number: [id number] [facility] [id number] [address] [place] [address] Date:2326-64-69Ktpj [place], [place] Repository 24144Lpy: (330) Name:CARE [id number]: () [phone] () 05/23/[address] [facility] Insurance:HUMANAPolicy [facility]UN[facility]ILLECYNTHIADOB: [place] Number: [id number] [facility] [id number] [address] [place] [address] Date:4472-77-46UuhpD[place], [place] Repository Name:MANAGED CARE [id number]: () 05/20/2017 Cuong [place] Primary Cuong Short [id number] Insurance:MEDICARE SchubertDOB: [facility] PART A BPolicy Number: [id number], [place] [id number] Repository 71239Ubc: 330) Date:2017-05-151389 () 05/20/2017 Secondary Cuong Short Insurance:HUMANA SchubertDOB: [facility] [id number] Hospital Number: Repository [id number] Date:9731-50-77ZC[address] [address]YT: 05/20/2017 Tertiary NOT GIVENUNK [place] Insurance:SELF PAY [facility] Hospital Number: Effective Repository Date:2017-05-15 05/14/2017 CUONG [place] Primary CUONG [facility]dh[facility] SCHUBERTDOB: Insurance:MEDICARE A SCHUBERTDOB: [place] [id number] AND BPolicy Number: [id number] [facility] [id number] [address] [place] [address] Date:6634-02-43Yful [place], [place] Repository 200[address]All: (718) Name:CARE [id number]: () [phone] () 05/14/[address] [facility] Insurance:HUMANAPolicy [facility] [place] Number: [id number] [facility] [id number] [address] [place] [address] Date:9386-80-19Ttav [place], [place] Repository Name:MANAGED CARE [id number]: () 05/03/2017 Cuong [place] Primary Cuong Short [id number] Insurance:MEDICARE SchubertDOB: [facility] PART A BPolicy Number: [id number], [place] [id number] Repository 52809Kwz: 330) Date:2009-04-05 [phone] () 05/03/2017 Secondary Cuong Short Insurance:HUMANA SchubertDOB: [facility] [id number] Hospital Number: Repository [id number] Date:2412-82-14[address] [place] [address]TR: 05/03/2017 Tertiary NOT GIVENUNK [place] Insurance:SELF PAY [facility] Hospital Number: Effective Repository Date:2017-04-07 05/03/2017 Cuong [place] Primary Cuong Short [id number] Insurance:MEDICARE SchubertDOB: [facility] [place] PART A BPolicy Number: [id number], [place] [id number] Repository 98765Xfm: (330) Date:2017-04-192405 () 05/03/2017 Secondary Cuong [place] Insurance:HUMANA SchubertDOB: [facility] [id number] Hospital Number: Repository [id number] Date:2519-63-21HS [address] [place] [address]WP: 05/03/2017 Tertiary NOT GIVENUNK [place] Insurance:SELF PAY [facility] Number: Effective Repository Date:2017-04-19 04/24/2017 Cuong L Primary Cuong Rojooster [id number] Insurance:MEDICARE SchubertDOB: [facility] PART A BPolicy Number: [id number], [place] [id number] Repository [address]Gry: (330) Date:2017-04-247803 () 04/24/2017 Secondary Cuong [place] Insurance:HUMANA SchubertDOB: [facility] [id number] Hospital Number: Repository [id number] Date:3964-77-06HQ [address] [place] [address]XQ: 04/24/2017 Tertiary NOT GIVENUNK Han Insurance:SELF PAY [facility] Number: Effective Repository Date:2017-04-24
== END ==
PROVIDERS: Family Provider Family Medicine; PCP Family Medicine; Referring Provider Internal Medicine Nephrology; Visit Provider Internal Medicine Nephrology
DX: N18.3 Chronic kidney disease, stage 3 (moderate) (principal); D64.9 Anemia, unspecified
CPT/HCPCS: 36415; 80069; 82306; 83970; 85027

== ENCOUNTER 2018-04-04 13:00 | Outpatient (RCR) | payer MEDICARE, OTHER, SELFPAY ==
[2015-10-31 10:00] VITALS: BMI 34.9
[2018-03-06 00:45] VITALS: BP 114/62; PULSE 81; RESP 18; TEMP 36.8; BMI 56.5
[2018-03-07 12:43] VITALS: BP 141/69; PULSE 77; RESP 20; TEMP 36.6; BMI 56.5
--- NOTE | 2018-03-07 17:34 | PCM.WC.PN ---
(1) Nonhealing surgical wound Status: Chronic Current Visit: Yes Qualifiers: Encounter type: subsequent encounter Code(s): T81.89XA - Other complications of procedures, not elsewhere classified, initial encounter (2) Open wound of lower back Status: Chronic Current Visit: Yes Code(s): S31.000A - Unspecified open wound of lower back and pelvis without penetration into retroperitoneum, initial encounter (3) Chronic kidney disease Status: Chronic Current Visit: Yes Qualifiers: Chronic kidney disease stage: stage 3 (moderate) Code(s): N18.9 - Chronic kidney disease, unspecified (4) Cellulitis Status: Chronic Current Visit: Yes Qualifiers: Site of cellulitis: trunk Site of cellulitis of trunk: back Qualified Code(s): L03.312 - Cellulitis of back [any part except buttock] Code(s): L03.90 - Cellulitis, unspecified Type of Wound Date of Service: 03/07/18 Chief Complaint: Nonhealing surgical wound of lower back History of Wound: Mr. Marshall is a 72-yo who has been seen here at the wound center for a nonhealing surgical wound of his lower back s/p surgical debridement for an abscess s/p lumbar spine surgery. His original surgery on his lower back was approximately 18 months ago and he has had multiple complications since that time. He underwent surgical debridement on 03/04/[address] Davila at [facility] in [place] and was discharged with a wound vac for healing by secondary intention with possible muscle flap closure in the future. He followed up with his surgeon on 04/18/17 for further evaluation and recommendations and they plan to close the wound with a muscle flap but he continues to develop infections. He is also being seen by Infectious Disease as needed. Progress of Wound: Cuong is here for follow-up of his nonhealing surgical wound of his lower back. He continues to be having a significant amount of increased pain in the last several weeks with some pain into his legs and left foot but denies any odor and reports less drainage. His was only having to change the dressing once daily. Has been using gauze and ABDs. Wound culture was positive for MRSA and he has 1 more day of antibiotics to take. He has had 8 applications of Purapply. He had a CT of his lumbar spine on 02/24/18 which showed a sclerotic lesion in his right iliac wing that was concerning for metastatic bone lesion but no signs of abscess or osteomyelitis. He is undergoing further work up through his PCP. - Physical Exam Vital Signs Temp Pulse Resp BP 98 F 77 20 H 141/69 H 03/07/18 12:43 03/07/18 12:43 03/07/18 12:43 03/07/18 12:43 General: Alert, Oriented x3, Cooperative, No apparent distress HEENT: Atraumatic, Normocephalic Oral: Moist Mucosa Skin: Ulcer/ Wound Wound Measurements and Assessment WC - Nurse 1 - General Ulcer Measurement Start: 03/07/18 12:43 Freq: Status: Active Protocol: Activity Type Activity Date Activity User E-Sign Co-Sign Detail Recorded Client Recorded Date Recorded By Document 03/07/18 12:43 AN [id number] 03/07/18 12:57 AN 03/07/18 12:43 Wound Center Nurse 1 [Ulcer Assessment] #9 Lower Lumbar- Midline -Combined with other wound No -Current Size (cm) - Length 14 -Current Size (cm) - Width 6 -Current Size (cm) - Depth 0.3 -Total Square Cm 84 -Photo Taken No -Epithelialization None Present -Tunneling No -Undermining/Tunneling No -Circular Undermining No -Classification - Thickness Full Thickness with Exposed Support Structure -Exudate Amt Large (67-100%) -Exudate Type Yellow/Green -Wound Margin Thickened -Necrosis Amt Small (1-33%) -Necrotic Tissue Type Adherent Slough WC - Nurse 2 - General Ulcer CM Notes Start: 03/07/18 12:43 Freq: Status: Active Protocol: Activity Type Activity Date Activity User E-Sign Co-Sign Detail Recorded Client Recorded Date Recorded By Document 03/07/18 13:04 CS [id number] 03/07/18 13:26 CS 03/07/18 13:04 Wound Center Nurse 2 [Procedure/Treatment] -Time 13:04 -Correct Patient Yes -Correct Side, Site, Position Yes -Correct Procedure Yes -Procedure Performed Yes -Type of Procedure Debridement -Clinical Debridement Subcutaneous -Post Debridement Size (cm) - Length 13.6 -Post Debridement Size (cm) - Width 4.3 -Post Debridement Size (cm) - Depth 0.4 -Total Square Cm 58.48 -Wound/Ulcer Outcome Not Healed -Ulcer Cleansing Rinsed/ Irrigated with Saline -Foul Odor after Cleansing No -Bioengineered Tissue Yes -Type of bioengineered Tissue [id number] -Expiration Date 08/11/20 -Product Lot Number [id number] -Percent Used 100 -Saline Lot Number [id number] -Bleeding Controlled with Pressure -Treatment Response Procedure Tolerated Well [See Physician Procedure note for Specifics] Pain Scale: 0-10 Numeric [Pain] -Is Patient Pain Free? No Psych/Mental Status: Normal Affect, Appropriate Debridement Note Post-Debridement Measurements/Treatment WC - Nurse 2 - General Ulcer CM Notes Start: 03/07/18 12:43 Freq: Status: Active Protocol: Activity Type Activity Date Activity User E-Sign Co-Sign Detail Recorded Client Recorded Date Recorded By Document 03/07/18 13:04 [id number] 03/07/18 13:26 CS 03/07/18 13:04 Wound Center Nurse 2 #9 Lower Lumbar- Midline -Time 13:04 -Correct Patient Yes -Correct Side, Site, Position Yes -Correct Procedure Yes -Procedure Performed Yes -Type of Procedure Debridement -Clinical Debridement Subcutaneous -Post Debridement Size (cm) - Length 13.6 -Post Debridement Size (cm) - Width 4.3 -Post Debridement Size (cm) - Depth 0.4 -Total Square Cm 58.48 -Wound/Ulcer Outcome Not Healed -Ulcer Cleansing Rinsed/ Irrigated with Saline -Foul Odor after Cleansing No -Bioengineered Tissue Yes -Type of bioengineered Tissue [id number] -Expiration Date 08/11/20 -Product Lot Number [id number] -Percent Used 100 -Saline Lot Number [id number] -Bleeding Controlled with Pressure -Treatment Response Procedure Tolerated Well Pain Scale: 0-10 Numeric Is Patient Pain Free? No Wound debrided: lower lumbar midline Laterality: Not Applicable Type of Debridement: Excisional debridement Anesthesia Used: 4% Lidocaine Solution Depth: Down to and including healthy tissue, in the subcutaneous layer Percentage of wound debrided: 100 Instrument Used: 7mm curette Tissue Removed: devitalized tissue, yellow slough Severity: Fat Layer Exposed Amount of bleeding with debridement: Mild Bleeding Controlled with: Compression and gauze Patient tolerated procedure well Assessment/Plan Active Problems (Last Reviewed 11/19/17 @ 16:27 by Micky Mauro MD) Nonhealing surgical wound (Chronic) Open wound of lower back (Chronic) Cellulitis (Chronic) Chronic kidney disease (Chronic) Hypertension (Chronic) Assessment: chronic surgical wound dehiscence lumbar with complex abscess and recent surgical debridement. malnutrition. other multiple comorbidities. edema bilateral lower extremities. Bleeding site from within wound controlled with combination of silver nitrate and Surgifoam. Bleeding appears to be controlled. venous insufficiency. immunocompromised status. Plan: Debridement done as documented above. Procedure was well-tolerated. Ninth application of Puraply was done today using 100% of product. Puraply was applied to the entirety of the wound. Covered with wound veil. Will continue to use gauze and ABDs with changes once-twice daily to the wound above the wound veil, leaving the wound veil in place. CT lumbar spine was negative for abscess but was concerning for possible metastatic lesion. Encouraged him to start antibiotics for positive wound culture. Continue increased protein intake. F/U in [address] Wick.
--- NOTE | 2018-03-07 17:42 | PN.PCM_ITS ---
(1) Nonhealing surgical wound Status: Chronic Current Visit: Yes Qualifiers: Encounter type: subsequent encounter Code(s): T81.89XA - Other complications of procedures, not elsewhere classified, initial encounter (2) Open wound of lower back Status: Chronic Current Visit: Yes Code(s): S31.000A - Unspecified open wound of lower back and pelvis without penetration into retroperitoneum, initial encounter (3) Chronic kidney disease Status: Chronic Current Visit: Yes Qualifiers: Chronic kidney disease stage: stage 3 (moderate) Code(s): N18.9 - Chronic kidney disease, unspecified (4) Cellulitis Status: Chronic Current Visit: Yes Qualifiers: Site of cellulitis: trunk Site of cellulitis of trunk: back Qualified Code(s): L03.312 - Cellulitis of back [any part except buttock] Code(s): L03.90 - Cellulitis, unspecified Type of Wound Date of Service: 03/07/18 Chief Complaint: Nonhealing surgical wound of lower back History of Wound: Mr. Marshall is a 72-yo who has been seen here at the wound center for a nonhealing surgical wound of his lower back s/p surgical debridement for an abscess s/p lumbar spine surgery. His original surgery on his lower back was approximately 18 months ago and he has had multiple complications since that time. He underwent surgical debridement on 03/04/[address] Davila at [facility] in [place] and was discharged with a wound vac for healing by secondary intention with possible muscle flap closure in the future. He followed up with his surgeon on 04/18/17 for further evaluation and recommendations and they plan to close the wound with a muscle flap but he continues to develop infections. He is also being seen by Infectious Disease as needed. Progress of Wound: Cuong is here for follow-up of his nonhealing surgical wound of his lower back. He continues to be having a significant amount of increased pain in the last several weeks with some pain into his legs and left foot but denies any odor and reports less drainage. His was only having to change the dressing once daily. Has been using gauze and ABDs. Wound culture was positive for MRSA and he has 1 more day of antibiotics to take. He has had 8 applications of Purapply. He had a CT of his lumbar spine on 02/24/18 which showed a sclerotic lesion in his right iliac wing that was concerning for metastatic bone lesion but no signs of abscess or osteomyelitis. He is undergoing further work up through his PCP. - Physical Exam Vital Signs Temp Pulse Resp BP 98 F 77 20 H 141/69 H 03/07/18 12:43 03/07/18 12:43 03/07/18 12:43 03/07/18 12:43 General: Alert, Oriented x3, Cooperative, No apparent distress HEENT: Atraumatic, Normocephalic Oral: Moist Mucosa Skin: Ulcer/ Wound Wound Measurements and Assessment WC - Nurse 1 - General Ulcer Measurement Start: 03/07/18 12:43 Freq: Status: Active Protocol: Activity Type Activity Date Activity User E-Sign Co-Sign Detail Recorded Client Recorded Date Recorded By Document 03/07/18 12:43 AN [id number] 03/07/18 12:57 AN 03/07/18 12:43 Wound Center Nurse 1 [Ulcer Assessment] #9 Lower Lumbar- Midline -Combined with other wound No -Current Size (cm) - Length 14 -Current Size (cm) - Width 6 -Current Size (cm) - Depth 0.3 -Total Square Cm 84 -Photo Taken No -Epithelialization None Present -Tunneling No -Undermining/Tunneling No -Circular Undermining No -Classification - Thickness Full Thickness with Exposed Support Structure -Exudate Amt Large (67-100%) -Exudate Type Yellow/Green -Wound Margin Thickened -Necrosis Amt Small (1-33%) -Necrotic Tissue Type Adherent Slough WC - Nurse 2 - General Ulcer CM Notes Start: 03/07/18 12:43 Freq: Status: Active Protocol: Activity Type Activity Date Activity User E-Sign Co-Sign Detail Recorded Client Recorded Date Recorded By Document 03/07/18 13:04 CS [id number] 03/07/18 13:26 CS 03/07/18 13:04 Wound Center Nurse 2 [Procedure/Treatment] -Time 13:04 -Correct Patient Yes -Correct Side, Site, Position Yes -Correct Procedure Yes -Procedure Performed Yes -Type of Procedure Debridement -Clinical Debridement Subcutaneous -Post Debridement Size (cm) - Length 13.6 -Post Debridement Size (cm) - Width 4.3 -Post Debridement Size (cm) - Depth 0.4 -Total Square Cm 58.48 -Wound/Ulcer Outcome Not Healed -Ulcer Cleansing Rinsed/ Irrigated with Saline -Foul Odor after Cleansing No -Bioengineered Tissue Yes -Type of bioengineered Tissue [id number] -Expiration Date 08/11/20 -Product Lot Number [id number] -Percent Used 100 -Saline Lot Number [id number] -Bleeding Controlled with Pressure -Treatment Response Procedure Tolerated Well [See Physician Procedure note for Specifics] Pain Scale: 0-10 Numeric [Pain] -Is Patient Pain Free? No Psych/Mental Status: Normal Affect, Appropriate Debridement Note Post-Debridement Measurements/Treatment WC - Nurse 2 - General Ulcer CM Notes Start: 03/07/18 12:43 Freq: Status: Active Protocol: Activity Type Activity Date Activity User E-Sign Co-Sign Detail Recorded Client Recorded Date Recorded By Document 03/07/18 13:04 [id number] 03/07/18 13:26 CS 03/07/18 13:04 Wound Center Nurse 2 #9 Lower Lumbar- Midline -Time 13:04 -Correct Patient Yes -Correct Side, Site, Position Yes -Correct Procedure Yes -Procedure Performed Yes -Type of Procedure Debridement -Clinical Debridement Subcutaneous -Post Debridement Size (cm) - Length 13.6 -Post Debridement Size (cm) - Width 4.3 -Post Debridement Size (cm) - Depth 0.4 -Total Square Cm 58.48 -Wound/Ulcer Outcome Not Healed -Ulcer Cleansing Rinsed/ Irrigated with Saline -Foul Odor after Cleansing No -Bioengineered Tissue Yes -Type of bioengineered Tissue [id number] -Expiration Date 08/11/20 -Product Lot Number [id number] -Percent Used 100 -Saline Lot Number [id number] -Bleeding Controlled with Pressure -Treatment Response Procedure Tolerated Well Pain Scale: 0-10 Numeric Is Patient Pain Free? No Wound debrided: lower lumbar midline Laterality: Not Applicable Type of Debridement: Excisional debridement Anesthesia Used: 4% Lidocaine Solution Depth: Down to and including healthy tissue, in the subcutaneous layer Percentage of wound debrided: 100 Instrument Used: 7mm curette Tissue Removed: devitalized tissue, yellow slough Severity: Fat Layer Exposed Amount of bleeding with debridement: Mild Bleeding Controlled with: Compression and gauze Patient tolerated procedure well Assessment/Plan Active Problems (Last Reviewed 11/19/17 @ 16:27 by Micky Mauro MD) Nonhealing surgical wound (Chronic) Open wound of lower back (Chronic) Cellulitis (Chronic) Chronic kidney disease (Chronic) Hypertension (Chronic) Assessment: chronic surgical wound dehiscence lumbar with complex abscess and r ecent surgical debridement. malnutrition. other multiple comorbidities. edema bilateral lower extremities. Bleeding site from within wound controlled with combination of silver nitrate and Surgifoam. Bleeding appears to be controlled. venous insufficiency. immunocompromised status. Plan: Debridement done as documented above. Procedure was well-tolerated. Ninth application of Puraply was done today using 100% of product. Puraply was applied to the entirety of the wound. Covered with wound veil. Will continue to use gauze and ABDs with changes once-twice daily to the wound above the wound veil, leaving the wound veil in place. CT lumbar spine was negative for abscess but was concerning for possible metastatic lesion. Encouraged him to start antibiotics for positive wound culture. Continue increased protein intake. F/U in [address] Wick.
[2018-03-14 13:23] VITALS: BP 97/69; PULSE 76; RESP 18; TEMP 37.2; BMI 56.5
--- NOTE | 2018-03-14 16:38 | PCM.WC.PN ---
(1) Nonhealing surgical wound Status: Chronic Current Visit: Yes Qualifiers: Encounter type: subsequent encounter Code(s): T81.89XA - Other complications of procedures, not elsewhere classified, initial encounter (2) Open wound of lower back Status: Chronic Current Visit: Yes Code(s): S31.000A - Unspecified open wound of lower back and pelvis without penetration into retroperitoneum, initial encounter (3) Chronic kidney disease Status: Chronic Current Visit: Yes Qualifiers: Chronic kidney disease stage: stage 3 (moderate) Code(s): N18.9 - Chronic kidney disease, unspecified (4) Cellulitis Status: Chronic Current Visit: Yes Qualifiers: Site of cellulitis: trunk Site of cellulitis of trunk: back Qualified Code(s): L03.312 - Cellulitis of back [any part except buttock] Code(s): L03.90 - Cellulitis, unspecified Type of Wound Date of Service: 03/14/18 Chief Complaint: Nonhealing surgical wound of lower back History of Wound: Mr. Marshall is a 72-yo who has been seen here at the wound center for a nonhealing surgical wound of his lower back s/p surgical debridement for an abscess s/p lumbar spine surgery. His original surgery on his lower back was approximately 18 months ago and he has had multiple complications since that time. He underwent surgical debridement on 03/04/[address] Davila at [facility] in [place] and was discharged with a wound vac for healing by secondary intention with possible muscle flap closure in the future. He followed up with his surgeon on 04/18/17 for further evaluation and recommendations and they plan to close the wound with a muscle flap but he continues to develop infections. He is also being seen by Infectious Disease as needed. CT 02/2018 did not show any abscess. Progress of Wound: Cuong is here for follow-up of his nonhealing surgical wound of his lower back. He continues to be having a significant amount of increased pain in with some pain into his legs and left foot. His has only been having to change the dressing once daily. Has been using gauze and ABDs. Wound culture was positive for Pseudomonas and he will start antibiotics today. He has had 9 applications of Purapply. - Physical Exam Vital Signs Temp Pulse Resp BP 98.9 F 76 18 97/69 03/14/18 13:23 03/14/18 13:23 03/14/18 13:23 03/14/18 13:23 General: Alert, Oriented x3, Cooperative, No apparent distress HEENT: Atraumatic, Normocephalic Oral: Moist Mucosa Skin: Ulcer/ Wound Wound Measurements and Assessment - Nurse 1 - General Ulcer Measurement Start: 03/07/18 12:43 Freq: Status: Active Protocol: Activity Type Activity Date Activity User E-Sign Co-Sign Detail Recorded Client Recorded Date Recorded By Document 03/14/18 13:23 AN [id number] 03/14/18 13:36 AN 03/14/18 13:23 Wound Center Nurse 1 [Ulcer Assessment] #9 Lower Lumbar- Midline -Current Size (cm) - Length 14 -Current Size (cm) - Width 5.5 -Current Size (cm) - Depth 0.3 -Total Square Cm 77.0 -Epithelialization None Present -Tunneling No -Undermining/Tunneling No -Circular Undermining No -Classification - Thickness Full Thickness without Exposed Support Structure -Exudate Amt Medium (34-66%) -Exudate Type Serous -Wound Margin Distinct, Outline Attached -Granulation Amt Small (1-33%) -Granulation Quality Red -Slough/Fibrin Yes -Necrosis Amt Large (67-100%) -Necrotic Tissue Type Adherent Slough -Structure Exposed Fat Layer Exposed -Texture (Uma-wound Skin Appearance) Scarring -Moisture (Uma-wound Skin Appearance Dry/Scaly ) -Color (Uma-wound Skin Appearance) No Abnormality -Temperature (Uma-wound Skin No Abnormality Appearance) (Pt Warm) -Tenderness on Palpation (Uma-wound Yes Skin Appearance) -Ulcer Cleansing Rinsed/ Irrigated with Saline -Anesthetic Used 4% Lidocaine Solution - Nurse 2 - General Ulcer CM Notes Start: 03/07/18 12:43 Freq: Status: Active Protocol: Activity Type Activity Date Activity User E-Sign Co-Sign Detail Recorded Client Recorded Date Recorded By Document 03/14/18 13:46 CS [id number] 03/14/18 14:10 CS 03/14/18 13:46 Wound Center Nurse 2 [Procedure/Treatment] -Time 13:46 -Correct Patient Yes -Correct Side, Site, Position Yes -Correct Procedure Yes -Procedure Performed Yes -Type of Procedure Debridement -Clinical Debridement Subcutaneous -Post Debridement Size (cm) - Length 13.7 -Post Debridement Size (cm) - Width 4.5 -Post Debridement Size (cm) - Depth 0.5 -Total Square Cm 61.65 -Wound/Ulcer Outcome Not Healed -Ulcer Cleansing Rinsed/ Irrigated with Saline -Foul Odor after Cleansing No -Bioengineered Tissue Yes -Type of bioengineered Tissue [id number] -Expiration Date 08/11/20 -Product Lot Number [id number] -Percent Used 100 -Saline Lot Number [id number] -Bleeding Controlled with Pressure SURGIFOAM -Treatment Response Procedure Tolerated Well [See Physician Procedure note for Specifics] Pain Scale: 0-10 Numeric [Pain] -Is Patient Pain Free? No Psych/Mental Status: Normal Affect, Appropriate Debridement Note Post-Debridement Measurements/Treatment WC - Nurse 2 - General Ulcer CM Notes Start: 03/07/18 12:43 Freq: Status: Active Protocol: Activity Type Activity Date Activity User E-Sign Co-Sign Detail Recorded Client Recorded Date Recorded By Document 03/07/18 13:04 [id number] 03/07/18 13:26 CS Document 03/14/18 13:46 [id number] 03/14/18 14:10 03/07/18 03/14/18 13:04 13:46 Wound Center Nurse 2 #9 Lower Lumbar- Midline -Time 13:04 13:46 -Correct Patient Yes Yes -Correct Side, Site, Position Yes Yes -Correct Procedure Yes Yes -Procedure Performed Yes Yes -Type of Procedure Debridement Debridement -Clinical Debridement Subcutaneous Subcutaneous -Post Debridement Size (cm) - Length 13.6 13.7 -Post Debridement Size (cm) - Width 4.3 4.5 -Post Debridement Size (cm) - Depth 0.4 0.5 -Total Square Cm 58.48 61.65 -Wound/Ulcer Outcome Not Healed Not Healed -Ulcer Cleansing Rinsed/ Rinsed/ Irrigated with Irrigated with Saline Saline -Foul Odor after Cleansing No No -Bioengineered Tissue Yes Yes -Type of bioengineered Tissue [id number] -Expiration Date 08/11/20 08/11/20 -Product Lot Number [id number] -Percent Used 100 100 -Saline Lot Number [id number] -Bleeding Controlled with Pressure Pressure SURGIFOAM -Treatment Response Procedure Procedure Tolerated Well Tolerated Well Pain Scale: 0-10 Numeric Is Patient Pain Free? No No Wound debrided: lower lumbar midline Laterality: Not Applicable Type of Debridement: Excisional debridement Anesthesia Used: 4% Lidocaine Solution Depth: Down to and including healthy tissue, in the subcutaneous layer Percentage of wound debrided: 100 Instrument Used: 7mm curette Tissue Removed: devitalized tissue, yellow slough Severity: Fat Layer Exposed Amount of bleeding with debridement: Mild Bleeding Controlled with: Compression and gauze Patient tolerated procedure well Assessment/Plan Active Problems (Last Reviewed 11/19/17 @ 16:27 by Micky Mauro MD) Nonhealing surgical wound (Chronic) Open wound of lower back (Chronic) Cellulitis (Chronic) Chronic kidney disease (Chronic) Hypertension (Chronic) Assessment: chronic surgical wound dehiscence lumbar with complex abscess and recent surgical debridement. malnutrition. other multiple comorbidities. edema bilateral lower extremities. Bleeding site from within wound controlled with combination of silver nitrate and Surgifoam. Bleeding appears to be controlled. venous insufficiency. immunocompromised status. Plan: Debridement done as documented above. Procedure was well-tolerated. Tenth application of Puraply was done today using 100% of product. Puraply was applied to the entirety of the wound. Covered with wound veil. Will continue to use gauze and ABDs with changes once-twice daily to the wound above the wound veil, leaving the wound veil in place. CT lumbar spine was negative for abscess but was concerning for possible metastatic lesion. Encouraged him to start antibiotics for positive wound culture. Continue increased protein intake. F/U in [address] Wick.
--- NOTE | 2018-03-14 16:43 | PN.PCM_ITS ---
(1) Nonhealing surgical wound Status: Chronic Current Visit: Yes Qualifiers: Encounter type: subsequent encounter Code(s): T81.89XA - Other complications of procedures, not elsewhere classified, initial encounter (2) Open wound of lower back Status: Chronic Current Visit: Yes Code(s): S31.000A - Unspecified open wound of lower back and pelvis without penetration into retroperitoneum, initial encounter (3) Chronic kidney disease Status: Chronic Current Visit: Yes Qualifiers: Chronic kidney disease stage: stage 3 (moderate) Code(s): N18.9 - Chronic kidney disease, unspecified (4) Cellulitis Status: Chronic Current Visit: Yes Qualifiers: Site of cellulitis: trunk Site of cellulitis of trunk: back Qualified Code(s): L03.312 - Cellulitis of back [any part except buttock] Code(s): L03.90 - Cellulitis, unspecified Type of Wound Date of Service: 03/14/18 Chief Complaint: Nonhealing surgical wound of lower back History of Wound: Mr. Marshall is a 72-yo who has been seen here at the wound center for a nonhealing surgical wound of his lower back s/p surgical debridement for an abscess s/p lumbar spine surgery. His original surgery on his lower back was approximately 18 months ago and he has had multiple complications since that time. He underwent surgical debridement on 03/04/[address] Davila at [facility] in [place] and was discharged with a wound vac for healing by secondary intention with possible muscle flap closure in the future. He followed up with his surgeon on 04/18/17 for further evaluation and recommendations and they plan to close the wound with a muscle flap but he continues to develop infections. He is also being seen by Infectious Disease as needed. CT 02/2018 did not show any abscess. Progress of Wound: Cuong is here for follow-up of his nonhealing surgical wound of his lower back. He continues to be having a significant amount of increased pain in with some pain into his legs and left foot. His has only been having to change the dressing once daily. Has been using gauze and ABDs. Wound culture was positive for Pseudomonas and he will start antibiotics today. He has had 9 applications of Purapply. - Physical Exam Vital Signs Temp Pulse Resp BP 98.9 F 76 18 97/69 03/14/18 13:23 03/14/18 13:23 03/14/18 13:23 03/14/18 13:23 General: Alert, Oriented x3, Cooperative, No apparent distress HEENT: Atraumatic, Normocephalic Oral: Moist Mucosa Skin: Ulcer/ Wound Wound Measurements and Assessment - Nurse 1 - General Ulcer Measurement Start: 03/07/18 12:43 Freq: Status: Active Protocol: Activity Type Activity Date Activity User E-Sign Co-Sign Detail Recorded Client Recorded Date Recorded By Document 03/14/18 13:23 AN [id number] 03/14/18 13:36 AN 03/14/18 13:23 Wound Center Nurse 1 [Ulcer Assessment] #9 Lower Lumbar- Midline -Current Size (cm) - Length 14 -Current Size (cm) - Width 5.5 -Current Size (cm) - Depth 0.3 -Total Square Cm 77.0 -Epithelialization None Present -Tunneling No -Undermining/Tunneling No -Circular Undermining No -Classification - Thickness Full Thickness without Exposed Support Structure -Exudate Amt Medium (34-66%) -Exudate Type Serous -Wound Margin Distinct, Outline Attached -Granulation Amt Small (1-33%) -Granulation Quality Red -Slough/Fibrin Yes -Necrosis Amt Large (67-100%) -Necrotic Tissue Type Adherent Slough -Structure Exposed Fat Layer Exposed -Texture (Uma-wound Skin Appearance) Scarring -Moisture (Uma-wound Skin Appearance Dry/Scaly ) -Color (Uma-wound Skin Appearance) No Abnormality -Temperature (Uma-wound Skin No Abnormality Appearance) (Pt Warm) -Tenderness on Palpation (Uma-wound Yes Skin Appearance) -Ulcer Cleansing Rinsed/ Irrigated with Saline -Anesthetic Used 4% Lidocaine Solution - Nurse 2 - General Ulcer CM Notes Start: 03/07/18 12:43 Freq: Status: Active Protocol: Activity Type Activity Date Activity User E-Sign Co-Sign Detail Recorded Client Recorded Date Recorded By Document 03/14/18 13:46 CS [id number] 03/14/18 14:10 CS 03/14/18 13:46 Wound Center Nurse 2 [Procedure/Treatment] -Time 13:46 -Correct Patient Yes -Correct Side, Site, Position Yes -Correct Procedure Yes -Procedure Performed Yes -Type of Procedure Debridement -Clinical Debridement Subcutaneous -Post Debridement Size (cm) - Length 13.7 -Post Debridement Size (cm) - Width 4.5 -Post Debridement Size (cm) - Depth 0.5 -Total Square Cm 61.65 -Wound/Ulcer Outcome Not Healed -Ulcer Cleansing Rinsed/ Irrigated with Saline -Foul Odor after Cleansing No -Bioengineered Tissue Yes -Type of bioengineered Tissue [id number] -Expiration Date 08/11/20 -Product Lot Number [id number] -Percent Used 100 -Saline Lot Number [id number] -Bleeding Controlled with Pressure SURGIFOAM -Treatment Response Procedure Tolerated Well [See Physician Procedure note for Specifics] Pain Scale: 0-10 Numeric [Pain] -Is Patient Pain Free? No Psych/Mental Status: Normal Affect, Appropriate Debridement Note Post-Debridement Measurements/Treatment WC - Nurse 2 - General Ulcer CM Notes Start: 03/07/18 12:43 Freq: Status: Active Protocol: Activity Type Activity Date Activity User E-Sign Co-Sign Detail Recorded Client Recorded Date Recorded By Document 03/07/18 13:04 [id number] 03/07/18 13:26 CS Document 03/14/18 13:46 [id number] 03/14/18 14:10 03/07/18 03/14/18 13:04 13:46 Wound Center Nurse 2 #9 Lower Lumbar- Midline -Time 13:04 13:46 -Correct Patient Yes Yes -Correct Side, Site, Position Yes Yes -Correct Procedure Yes Yes -Procedure Performed Yes Yes -Type of Procedure Debridement Debridement -Clinical Debridement Subcutaneous Subcutaneous -Post Debridement Size (cm) - Length 13.6 13.7 -Post Debridement Size (cm) - Width 4.3 4.5 -Post Debridement Size (cm) - Depth 0.4 0.5 -Total Square Cm 58.48 61.65 -Wound/Ulcer Outcome Not Healed Not Healed -Ulcer Cleansing Rinsed/ Rinsed/ Irrigated with Irrigated with Saline Saline -Foul Odor after Cleansing No No -Bioengineered Tissue Yes Yes -Type of bioengineered Tissue [id number] -Expiration Date 08/11/20 08/11/20 -Product Lot Number [id number] -Percent Used 100 100 -Saline Lot Number [id number] -Bleeding Controlled with Pressure Pressure SURGIFOAM -Treatment Response Procedure Procedure Tolerated Well Tolerated Well Pain Scale: 0-10 Numeric Is Patient Pain Free? No No Wound debrided: lower lumbar midline Laterality: Not Applicable Type of Debridement: Excisional debridement Anesthesia Used: 4% Lidocaine Solution Depth: Down to and including healthy tissue, in the subcutaneous layer Percentage of wound debrided: 100 Instrument Used: 7mm curette Tissue Removed: devitalized tissue, yellow slough Severity: Fat Layer Exposed Amount of bleeding with debridement: Mild Bleeding Controlled with: Compression and gauze Patient tolerated procedure well Assessment/Plan Active Problems (Last Reviewed 11/19/17 @ 16:27 by Micky Mauro MD) Nonhealing surgical wound (Chronic) Open wound of lower back (Chronic) Cellulitis (Chronic) Chronic kidney disease (Chronic) Hypertension (Chronic) Assessment: chronic surgical wound dehiscence lumbar with complex abscess and recent surgical debridement. malnutrition. other multiple comorbidities. edema bilateral lower extremities. Bleeding site from within wound controlled with combination of silver nitrate and Surgifoam. Bleeding appears to be controlled. venous insufficiency. immunocompromised status. Plan: Debridement done as documented above. Procedure was well-tolerated. Tenth application of Puraply was done today using 100% of product. Puraply was applied to the entirety of the wound. Covered with wound veil. Will continue to use gauze and ABDs with changes once-twice daily to the wound above the wound veil, leaving the wound veil in place. CT lumbar spine was negative for abscess but was concerning for possible metastatic lesion. Encouraged him to start antibiotics for positive wound culture. Continue increased protein intake. F/U in [address] Wick.
[2018-03-21 12:25] VITALS: BP 128/67; PULSE 77; RESP 16; TEMP 36.2; BMI 56.5
--- NOTE | 2018-03-21 16:49 | PCM.WC.PN ---
(1) Nonhealing surgical wound Status: Chronic Current Visit: Yes Qualifiers: Encounter type: subsequent encounter Code(s): T81.89XA - Other complications of procedures, not elsewhere classified, initial encounter (2) Open wound of lower back Status: Chronic Current Visit: Yes Code(s): S31.000A - Unspecified open wound of lower back and pelvis without penetration into retroperitoneum, initial encounter (3) Chronic kidney disease Status: Chronic Current Visit: Yes Qualifiers: Chronic kidney disease stage: stage 3 (moderate) Code(s): N18.9 - Chronic kidney disease, unspecified (4) Cellulitis Status: Chronic Current Visit: Yes Qualifiers: Site of cellulitis: trunk Site of cellulitis of trunk: back Qualified Code(s): L03.312 - Cellulitis of back [any part except buttock] Code(s): L03.90 - Cellulitis, unspecified Type of Wound Date of Service: 03/21/18 Chief Complaint: Nonhealing surgical wound of lower back History of Wound: Mr. Marshall is a 72-yo who has been seen here at the wound center for a nonhealing surgical wound of his lower back s/p surgical debridement for an abscess s/p lumbar spine surgery. His original surgery on his lower back was approximately 18 months ago and he has had multiple complications since that time. He underwent surgical debridement on 03/04/[address] Davila at [facility] in [place] and was discharged with a wound vac for healing by secondary intention with possible muscle flap closure in the future. He followed up with his surgeon on 04/18/17 for further evaluation and recommendations and they plan to close the wound with a muscle flap but he continues to develop infections. He is also being seen by Infectious Disease as needed. CT 02/2018 did not show any abscess. Progress of Wound: Cuong is here for follow-up of his nonhealing surgical wound of his lower back. He continues to be having a significant amount of increased pain in his right low back with some pain into his legs and left foot. His has only been having to change the dressing once daily. Has been using gauze and ABDs. He is almost finished with his antibiotics. He has had 10 applications of Purapply with mild improvement. He is scheduled to see a plastic surgeon at [facility] on 11/28/18. - Physical Exam Vital Signs Temp Pulse Resp BP 97.1 F L 77 16 128/67 H 03/21/18 12:25 03/21/18 12:25 03/21/18 12:25 03/21/18 12:25 General: Alert, Oriented x3, Cooperative, No apparent distress HEENT: Atraumatic, Normocephalic Oral: Moist Mucosa Skin: Ulcer/ Wound Wound Measurements and Assessment WC - Nurse 1 - General Ulcer Measurement Start: 03/07/18 12:43 Freq: Status: Active Protocol: Activity Type Activity Date Activity User E-Sign Co-Sign Detail Recorded Client Recorded Date Recorded By Document 03/21/18 12:25 MW [id number] 03/21/18 12:34 MW 03/21/18 12:25 Wound Center Nurse 1 [Ulcer Assessment] #9 Lower Lumbar- Midline -Combined with other wound No -Current Size (cm) - Length 14.2 -Current Size (cm) - Width 4.4 -Current Size (cm) - Depth 0.6 -Total Square Cm 62.48 -Photo Taken No -Epithelialization None Present -Tunneling No -Undermining/Tunneling No -Circular Undermining No -Exudate Amt Medium (34-66%) -Exudate Type Serosanguineous -Wound Margin Distinct, Outline Attached -Granulation Amt Small (1-33%) -Granulation Quality Red -Slough/Fibrin Yes -Necrosis Amt Large (67-100%) -Necrotic Tissue Type Adherent Slough -Texture (Uma-wound Skin Appearance) Scarring -Moisture (Uma-wound Skin Appearance Dry/Scaly ) -Color (Uma-wound Skin Appearance) Assessed -Temperature (Uma-wound Skin No Abnormality Appearance) (Pt Warm) -Tenderness on Palpation (Uma-wound No Skin Appearance) -Ulcer Cleansing Rinsed/ Irrigated with Saline -Foul Odor after Cleansing No -Anesthetic Used 4% Lidocaine Solution WC - Nurse 2 - General Ulcer CM Notes Start: 03/07/18 12:43 Freq: Status: Active Protocol: Activity Type Activity Date Activity User E-Sign Co-Sign Detail Recorded Client Recorded Date Recorded By Document 03/21/18 13:04 CS [id number] 03/21/18 13:19 CS 03/21/18 13:04 Wound Center Nurse 2 [Procedure/Treatment] -Time 13:07 -Correct Patient Yes -Correct Side, Site, Position Yes -Correct Procedure Yes -Procedure Performed Yes -Type of Procedure Debridement -Clinical Debridement Subcutaneous -Post Debridement Size (cm) - Length 13.7 -Post Debridement Size (cm) - Width 4.2 -Post Debridement Size (cm) - Depth 0.4 -Total Square Cm 57.54 -Wound/Ulcer Outcome Not Healed -Ulcer Cleansing Rinsed/ Irrigated with Saline -Foul Odor after Cleansing No -Bioengineered Tissue No -Bleeding Controlled with Pressure -Treatment Response Procedure Tolerated Well [See Physician Procedure note for Specifics] Pain Scale: 0-10 Numeric [Pain] -Is Patient Pain Free? Yes Psych/Mental Status: Normal Affect, Appropriate Debridement Note Post-Debridement Measurements/Treatment WC - Nurse 2 - General Ulcer CM Notes Start: 03/07/18 12:43 Freq: Status: Active Protocol: Activity Type Activity Date Activity User E-Sign Co-Sign Detail Recorded Client Recorded Date Recorded By Document 03/07/18 13:04 [id number] 03/07/18 13:26 CS Document 03/14/18 13:46 [id number] 03/14/18 14:10 CS Document 03/21/18 13:04 [id number] 03/21/18 13:19 03/07/18 03/14/18 03/21/18 13:04 13:46 13:04 Wound Center Nurse 2 #9 Lower Lumbar- Midline -Time 13:04 13:46 13:07 -Correct Patient Yes Yes Yes -Correct Side, Site, Position Yes Yes Yes -Correct Procedure Yes Yes Yes -Procedure Performed Yes Yes Yes -Type of Procedure Debridement Debridement Debridement -Clinical Debridement Subcutaneous Subcutaneous Subcutaneous -Post Debridement Size (cm) - Length 13.6 13.7 13.7 -Post Debridement Size (cm) - Width 4.3 4.5 4.2 -Post Debridement Size (cm) - Depth 0.4 0.5 0.4 -Total Square Cm 58.48 61.65 57.54 -Wound/Ulcer Outcome Not Healed Not Healed Not Healed -Ulcer Cleansing Rinsed/ Rinsed/ Rinsed/ Irrigated with Irrigated with Irrigated with Saline Saline Saline -Foul Odor after Cleansing No No No -Bioengineered Tissue Yes Yes No -Type of bioengineered Tissue [id number] -Expiration Date 08/11/20 08/11/20 -Product Lot Number [id number] -Percent Used 100 100 -Saline Lot Number [id number] -Bleeding Controlled with Pressure Pressure Pressure SURGIFOAM -Treatment Response Procedure Procedure Procedure Tolerated Well Tolerated Well Tolerated Well Pain Scale: 0-10 Numeric Is Patient Pain Free? No No Yes Wound debrided: lower lumbar midline Laterality: Not Applicable Type of Debridement: Excisional debridement Anesthesia Used: 4% Lidocaine Solution Depth: Down to and including healthy tissue, in the subcutaneous layer Percentage of wound debrided: 100 Instrument Used: 7mm curette Tissue Removed: yellow slough, devitalized tissue Severity: Fat Layer Exposed Amount of bleeding with debridement: Mild Bleeding Controlled with: Compression and gauze Patient tolerated procedure well Assessment/Plan Active Problems (Last Reviewed 11/19/17 @ 16:27 by Micky Mauro MD) Nonhealing surgical wound (Chronic) Open wound of lower back (Chronic) Cellulitis (Chronic) Chronic kidney disease (Chronic) Hypertension (Chronic) Assessment: chronic surgical wound dehiscence lumbar with complex abscess and recent surgical debridement. malnutrition. other multiple comorbidities. edema bilateral lower extremities. Bleeding site from within wound controlled with combination of silver nitrate and Surgifoam. Bleeding appears to be controlled. venous insufficiency. immunocompromised status. Plan: Debridement done as documented above. Procedure was well-tolerated. Purapply applications completed. Will have him use Aquacel Extra and will continue to use gauze and ABDs with changes once-twice daily. CT lumbar spine was negative for abscess. He has appointment scheduled for consultation with plastic surgeon at [facility] on 04/02/18. Continue increased protein intake. F/U in [address] Wick.
--- NOTE | 2018-03-21 16:54 | PN.PCM_ITS ---
(1) Nonhealing surgical wound Status: Chronic Current Visit: Yes Qualifiers: Encounter type: subsequent encounter Code(s): T81.89XA - Other complications of procedures, not elsewhere classified, initial encounter (2) Open wound of lower back Status: Chronic Current Visit: Yes Code(s): S31.000A - Unspecified open wound of lower back and pelvis without penetration into retroperitoneum, initial encounter (3) Chronic kidney disease Status: Chronic Current Visit: Yes Qualifiers: Chronic kidney disease stage: stage 3 (moderate) Code(s): N18.9 - Chronic kidney disease, unspecified (4) Cellulitis Status: Chronic Current Visit: Yes Qualifiers: Site of cellulitis: trunk Site of cellulitis of trunk: back Qualified Code(s): L03.312 - Cellulitis of back [any part except buttock] Code(s): L03.90 - Cellulitis, unspecified Type of Wound Date of Service: 03/21/18 Chief Complaint: Nonhealing surgical wound of lower back History of Wound: Mr. Marshall is a 72-yo who has been seen here at the wound center for a nonhealing surgical wound of his lower back s/p surgical debridement for an abscess s/p lumbar spine surgery. His original surgery on his lower back was approximately 18 months ago and he has had multiple complications since that time. He underwent surgical debridement on 03/04/[address] Davila at [facility] in [place] and was discharged with a wound vac for healing by secondary intention with possible muscle flap closure in the future. He followed up with his surgeon on 04/18/17 for further evaluation and recommendations and they plan to close the wound with a muscle flap but he continues to develop infections. He is also being seen by Infectious Disease as needed. CT 02/2018 did not show any abscess. Progress of Wound: Cuong is here for follow-up of his nonhealing surgical wound of his lower back. He continues to be having a significant amount of increased pain in his right low back with some pain into his legs and left foot. His has only been having to change the dressing once daily. Has been using gauze and ABDs. He is almost finished with his antibiotics. He has had 10 applications of Purapply with mild improvement. He is scheduled to [facility] a [facility]. - Physical Exam Vital Signs Temp Pulse Resp BP 97.1 F L 77 16 128/67 H 03/21/18 12:25 03/21/18 12:25 03/21/18 12:25 03/21/18 12:25 General: Alert, Oriented x3, Cooperative, No apparent distress HEENT: Atraumatic, Normocephalic Oral: Moist Mucosa Skin: Ulcer/ Wound Wound Measurements and Assessment WC - Nurse 1 - General Ulcer Measurement Start: 03/07/18 12:43 Freq: Status: Active Protocol: Activity Type Activity Date Activity User E-Sign Co-Sign Detail Recorded Client Recorded Date Recorded By Document 03/21/18 12:25 MW [id number] 03/21/18 12:34 MW 03/21/18 12:25 Wound Center Nurse 1 [Ulcer Assessment] #9 Lower Lumbar- Midline -Combined with other wound No -Current Size (cm) - Length 14.2 -Current Size (cm) - Width 4.4 -Current Size (cm) - Depth 0.6 -Total Square Cm 62.48 -Photo Taken No -Epithelialization None Present -Tunneling No -Undermining/Tunneling No -Circular Undermining No -Exudate Amt Medium (34-66%) -Exudate Type Serosanguineous -Wound Margin Distinct, Outline Attached -Granulation Amt Small (1-33%) -Granulation Quality Red -Slough/Fibrin Yes -Necrosis Amt Large (67-100%) -Necrotic Tissue Type Adherent Slough -Texture (Uma-wound Skin Appearance) Scarring -Moisture (Uma-wound Skin Appearance Dry/Scaly ) -Color (Uma-wound Skin Appearance) Assessed -Temperature (Uma-wound Skin No Abnormality Appearance) (Pt Warm) -Tenderness on Palpation (Uma-wound No Skin Appearance) -Ulcer Cleansing Rinsed/ Irrigated with Saline -Foul Odor after Cleansing No -Anesthetic Used 4% Lidocaine Solution WC - Nurse 2 - General Ulcer CM Notes Start: 03/07/18 12:43 Freq: Status: Active Protocol: Activity Type Activity Date Activity User E-Sign Co-Sign Detail Recorded Client Recorded Date Recorded By Document 03/21/18 13:04 CS [id number] 03/21/18 13:19 CS 03/21/18 13:04 Wound Center Nurse 2 [Procedure/Treatment] -Time 13:07 -Correct Patient Yes -Correct Side, Site, Position Yes -Correct Procedure Yes -Procedure Performed Yes -Type of Procedure Debridement -Clinical Debridement Subcutaneous -Post Debridement Size (cm) - Length 13.7 -Post Debridement Size (cm) - Width 4.2 -Post Debridement Size (cm) - Depth 0.4 -Total Square Cm 57.54 -Wound/Ulcer Outcome Not Healed -Ulcer Cleansing Rinsed/ Irrigated with Saline -Foul Odor after Cleansing No -Bioengineered Tissue No -Bleeding Controlled with Pressure -Treatment Response Procedure Tolerated Well [See Physician Procedure note for Specifics] Pain Scale: 0-10 Numeric [Pain] -Is Patient Pain Free? Yes Psych/Mental Status: Normal Affect, Appropriate Debridement Note Post-Debridement Measurements/Treatment WC - Nurse 2 - General Ulcer CM Notes Start: 03/07/18 12:43 Freq: Status: Active Protocol: Activity Type Activity Date Activity User E-Sign Co-Sign Detail Recorded Client Recorded Date Recorded By Document 03/07/18 13:04 [id number] 03/07/18 13:26 CS Document 03/14/18 13:46 [id number] 03/14/18 14:10 CS Document 03/21/18 13:04 [id number] 03/21/18 13:19 03/07/18 03/14/18 03/21/18 13:04 13:46 13:04 Wound Center Nurse 2 #9 Lower Lumbar- Midline -Time 13:04 13:46 13:07 -Correct Patient Yes Yes Yes -Correct Side, Site, Position Yes Yes Yes -Correct Procedure Yes Yes Yes -Procedure Performed Yes Yes Yes -Type of Procedure Debridement Debridement Debridement -Clinical Debridement Subcutaneous Subcutaneous Subcutaneous -Post Debridement Size (cm) - Length 13.6 13.7 13.7 -Post Debridement Size (cm) - Width 4.3 4.5 4.2 -Post Debridement Size (cm) - Depth 0.4 0.5 0.4 -Total Square Cm 58.48 61.65 57.54 -Wound/Ulcer Outcome Not Healed Not Healed Not Healed -Ulcer Cleansing Rinsed/ Rinsed/ Rinsed/ Irrigated with Irrigated with Irrigated with Saline Saline Saline -Foul Odor after Cleansing No No No -Bioengineered Tissue Yes Yes No -Type of bioengineered Tissue [id number] -Expiration Date 08/11/20 08/11/20 -Product Lot Number [id number] -Percent Used 100 100 -Saline Lot Number [id number] -Bleeding Controlled with Pressure Pressure Pressure SURGIFOAM -Treatment Response Procedure Procedure Procedure Tolerated Well Tolerated Well Tolerated Well Pain Scale: 0-10 Numeric Is Patient Pain Free? No No Yes Wound debrided: lower lumbar midline Laterality: Not Applicable Type of Debridement: Excisional debridement Anesthesia Used: 4% Lidocaine Solution Depth: Down to and including healthy tissue, in the subcutaneous layer Percentage of wound debrided: 100 Instrument Used: 7mm curette Tissue Removed: yellow slough, devitalized tissue Severity: Fat Layer Exposed Amount of bleeding with debridement: Mild Bleeding Controlled with: Compression and gauze Patient tolerated procedure well Assessment/Plan Active Problems (Last Reviewed 11/19/17 @ 16:27 by Micky Mauro MD) Nonhealing surgical wound (Chronic) Open wound of lower back (Chronic) Cellulitis (Chronic) Chronic kidney disease (Chronic) Hypertension (Chronic) Assessment: chronic surgical wound dehiscence lumbar with complex abscess and recent surgical debridement. malnutrition. other multiple comorbidities. edema bilateral lower extremities. Bleeding site from within wound controlled with combination of silver nitrate and Surgifoam. Bleeding appears to be controlled. venous insufficiency. immunocompromised status. Plan: Debridement done as documented above. Procedure was well-tolerated. Purapply applications completed. Will have him use Aquacel Extra and will continue to use gauze and ABDs with changes once-twice daily. CT lumbar spine was negative for abscess. He has appointment scheduled for [facility] with [facility]. Continue increased protein intake. F/U in [address] Wick.
[2018-03-25 14:58] VITALS: BP 111/55; PULSE 78; RESP 20; TEMP 36; BMI 56.5
--- NOTE | 2018-03-25 16:55 | PN.PCM_ITS ---
(1) Nonhealing surgical wound Status: Chronic Qualifiers: Encounter type: subsequent encounter Code(s): T81.89XA - Other complications of procedures, not elsewhere classified, initial encounter (2) Open wound of lower back Status: Chronic Code(s): S31.000A - Unspecified open wound of lower back and pelvis without penetration into retroperitoneum, initial encounter Type of Wound Date of Service: 03/25/18 Chief Complaint: Nonhealing surgical wound of lower back History of Wound: Mr. Marshall is a 72-yo who has been seen here at the wound center for a nonhealing surgical wound of his lower back s/p surgical debridement for an abscess s/p lumbar spine surgery. His original surgery on his lower back was approximately 18 months ago and he has had multiple complications since that time. He underwent surgical debridement on 03/04/[address] Davila at [facility] in [place] and was discharged with a wound vac for healing by secondary intention with possible muscle flap closure in the future. He followed up with his surgeon on 04/18/17 for further evaluation and recommendations and they plan to close the wound with a muscle flap but he continues to develop infections. He is also being seen by Infectious Disease as needed. CT 02/2018 did not show any abscess. Progress of Wound: This is a courtesy visit due to the . He typically sees Dr. Wick. Cuong is here for follow-up of his nonhealing surgical wound of his lower back. He continues to be having a significant amount of increased pain in his right low back with some pain into his legs and left foot. His has only been having to change the dressing once daily. Has been using gauze and ABDs. He is almost finished with his antibiotics. He has had 10 applications of Purapply with mild improvement. He is scheduled to see a plastic surgeon at [facility] on 04/02/18. - Physical Exam Vital Signs Temp Pulse Resp BP 96.8 F L 78 20 H 111/55 L 03/25/18 14:58 03/25/18 14:58 03/25/18 14:58 03/25/18 14:58 General: Alert, Oriented x3, Cooperative HEENT: Atraumatic Skin: Ulcer/ Wound - Lower back non healing surgical wound. Wound Measurements and Assessment WC - Nurse 1 - General Ulcer Measurement Start: 03/07/18 12:43 Freq: Status: Active Protocol: Activity Type Activity Date Activity User E-Sign Co-Sign Detail Recorded Client Recorded Date Recorded By Document 03/25/18 14:58 DL [id number] 03/25/18 15:07 DL 03/25/18 14:58 Wound Center Nurse 1 [Ulcer Assessment] #9 Lower Lumbar- Midline -Current Size (cm) - Length 14.3 -Current Size (cm) - Width 4 -Current Size (cm) - Depth 0.4 -Total Square Cm 57.2 -Photo Taken No -Exudate Amt Large (67-100%) -Exudate Type Yellow/Green -Wound Margin Thickened & Rolled Under -Granulation Amt None Present (0 %) -Necrosis Amt Large (67-100%) -Necrotic Tissue Type Adherent Slough -Structure Exposed N/A -Texture (Uma-wound Skin Appearance) Scarring -Moisture (Uma-wound Skin Appearance No Abnormality ) -Color (Uma-wound Skin Appearance) No Abnormality -Temperature (Uma-wound Skin No Abnormality Appearance) (Pt Warm) -Tenderness on Palpation (Uma-wound No Skin Appearance) -Ulcer Cleansing Rinsed/ Irrigated with Saline -Foul Odor after Cleansing No -Anesthetic Used 4% Lidocaine Solution WC - Nurse 2 - General Ulcer CM Notes Start: 03/07/18 12:43 Freq: Status: Active Protocol: Activity Type Activity Date Activity User E-Sign Co-Sign Detail Recorded Client Recorded Date Recorded By Document 03/25/18 15:47 [id number] 03/25/18 15:58 03/25/18 15:47 Wound Center Nurse 2 [Procedure/Treatment] -Time 15:49 -Correct Patient Yes -Correct Side, Site, Position Yes -Correct Procedure Yes -Procedure Performed Yes -Type of Procedure Debridement -Clinical Debridement Subcutaneous -Post Debridement Size (cm) - Length 14.5 -Post Debridement Size (cm) - Width 4.8 -Post Debridement Size (cm) - Depth 1.6 -Total Square Cm 69.60 -Wound/Ulcer Outcome Not Healed -Ulcer Cleansing Not Cleansed -Foul Odor after Cleansing No -Bioengineered Tissue No -Bleeding Controlled with Silver Nitrate SURGIFOAM -Treatment Response Procedure Tolerated Well [See Physician Procedure note for Specifics] Pain Scale: 0-10 Numeric [Pain] -Is Patient Pain Free? Yes Musculoskeletal: No Tenderness to Palpation of Joints or Extremities Neurological: Neuro grossly intact Psych/Mental Status: Normal Affect, Appropriate Debridement Note Post-Debridement Measurements/Treatment WC - Nurse 2 - General Ulcer CM Notes Start: 03/07/18 12:43 Freq: Status: Active Protocol: Activity Type Activity Date Activity User E-Sign Co-Sign Detail Recorded Client Recorded Date Recorded By Document 03/07/18 13:04 [id number] 03/07/18 13:26 CS Document 03/14/18 13:46 [id number] 03/14/18 14:10 CS Document 03/21/18 13:04 [id number] 03/21/18 13:19 CS Document 03/25/18 15:47 [id number] 03/25/18 15:58 03/07/18 03/14/18 03/21/18 13:04 13:46 13:04 Wound Center Nurse 2 #9 Lower Lumbar- Midline -Time 13:04 13:46 13:07 -Correct Patient Yes Yes Yes -Correct Side, Site, Position Yes Yes Yes -Correct Procedure Yes Yes Yes -Procedure Performed Yes Yes Yes -Type of Procedure Debridement Debridement Debridement -Clinical Debridement Subcutaneous Subcutaneous Subcutaneous -Post Debridement Size (cm) - Length 13.6 13.7 13.7 -Post Debridement Size (cm) - Width 4.3 4.5 4.2 -Post Debridement Size (cm) - Depth 0.4 0.5 0.4 -Total Square Cm 58.48 61.65 57.54 -Wound/Ulcer Outcome Not Healed Not Healed Not Healed -Ulcer Cleansing Rinsed/ Rinsed/ Rinsed/ Irrigated with Irrigated with Irrigated with Saline Saline Saline -Foul Odor after Cleansing No No No -Bioengineered Tissue Yes Yes No -Type of bioengineered Tissue [id number] -Expiration Date 08/11/20 08/11/20 -Product Lot Number [id number] -Percent Used 100 100 -Saline Lot Number [id number] -Bleeding Controlled with Pressure Pressure Pressure SURGIFOAM -Treatment Response Procedure Procedure Procedure Tolerated Well Tolerated Well Tolerated Well Pain Scale: 0-10 Numeric Is Patient Pain Free? No No Yes 03/25/18 15:47 Wound Center Nurse 2 #9 Lower Lumbar- Midline -Time 15:49 -Correct Patient Yes -Correct Side, Site, Position Yes -Correct Procedure Yes -Procedure Performed Yes -Type of Procedure Debridement -Clinical Debridement Subcutaneous -Post Debridement Size (cm) - Length 14.5 -Post Debridement Size (cm) - Width 4.8 -Post Debridement Size (cm) - Depth 1.6 -Total Square Cm 69.60 -Wound/Ulcer Outcome Not Healed -Ulcer Cleansing Not Cleansed -Foul Odor after Cleansing No -Bioengineered Tissue No -Type of bioengineered Tissue -Expiration Date -Product Lot Number -Percent Used -Saline Lot Number -Bleeding Controlled with Silver Nitrate SURGIFOAM -Treatment Response Procedure Tolerated Well Pain Scale: 0-10 Numeric Is Patient Pain Free? Yes Wound debrided: lower medial back Type of Debridement: Excisional debridement Anesthesia Used: 4% Lidocaine Solution Depth: Down to and including healthy tissue, in the subcutaneous layer Percentage of wound debrided: 100 Instrument Used: 5mm curette Tissue Removed: Large amount of subcutaneous tissue and slough Severity: Limited To Skin Breakdown Amount of bleeding with debridement: Moderate Bleeding Controlled with: Pressure, Compression and gauze, Silver Nitrate - Used on left medial spot and right upper spot of lower back wound., Gel Foam - Left medial portion has one area that would not stop bleeding with pressure, and silver nitrate. Gel foam used and the oozing stopped. Patient tolerated procedure well Assessment/Plan Assessment: chronic surgical wound dehiscence lumbar with complex abscess and recent surgical debridement. malnutrition. other multiple comorbidities. edema bilateral lower extremities. Bleeding site from within wound controlled with combination of silver nitrate and Surgifoam. Bleeding appears to be controlled. venous insufficiency. immunocompromised status. Plan: Debridement done as documented above. Procedure was well-tolerated. Purapply applications completed. Will have him use Aquacel Extra and will contin ue to use gauze and ABDs with changes once-twice daily. CT lumbar spine was negative for abscess. He has appointment scheduled for consultation with plastic surgeon at [facility] on 04/02/18. Continue increased protein intake. F/U in [address] Wick. Code Visit 111xxx-113xx: 22106 Charissa subq tissue 20 sq cm/< Add On Codes: 76223 Charissa subq tissue add-on - x3
[2018-04-04 13:06] VITALS: BP 125/63; PULSE 72; RESP 18; TEMP 36.5; BMI 56.5
--- NOTE | 2018-04-04 17:45 | PCM.WC.PN ---
(1) Nonhealing surgical wound Status: Chronic Current Visit: Yes Qualifiers: Encounter type: subsequent encounter Code(s): T81.89XA - Other complications of procedures, not elsewhere classified, initial encounter (2) Open wound of lower back Status: Chronic Current Visit: Yes Code(s): S31.000A - Unspecified open wound of lower back and pelvis without penetration into retroperitoneum, initial encounter (3) Chronic kidney disease Status: Chronic Current Visit: Yes Qualifiers: Chronic kidney disease stage: stage 3 (moderate) Code(s): N18.9 - Chronic kidney disease, unspecified (4) Cellulitis Status: Resolved Current Visit: No Qualifiers: Site of cellulitis: trunk Site of cellulitis of trunk: back Qualified Code(s): L03.312 - Cellulitis of back [any part except buttock] Code(s): L03.90 - Cellulitis, unspecified Type of Wound Date of Service: 04/04/18 Chief Complaint: Nonhealing surgical wound of lower back History of Wound: Mr. Marshall is a 72-yo who has been seen here at the wound center for a nonhealing surgical wound of his lower back s/p surgical debridement for an abscess s/p lumbar spine surgery. His original surgery on his lower back was approximately 18 months ago and he has had multiple complications since that time. He underwent surgical debridement on 03/04/[address] Davila at [facility] in [place] and was discharged with a wound vac for healing by secondary intention with possible muscle flap closure in the future. He followed up with his surgeon on 04/18/17 for further evaluation and recommendations and they plan to close the wound with a muscle flap but he continues to develop infections. He is also being seen by Infectious Disease as needed. CT 02/2018 did not show any abscess. Progress of Wound: Cuong is here for follow-up of his nonhealing surgical wound of his lower back. He continues to be having a significant amount of increased pain in his right low back with some pain into his legs and left foot. His has only been having to change the dressing once daily. Has been using gauze and ABDs and Aquacel. He has had 10 applications of Purapply with mild improvement. He saw a plastic surgeon at [facility] on 04/02/18 who is hopeful to close Cuong's surgical wound with a muscle flap. He requested additional records of CT scans as well as information on radiation that was done previously and will review these records and decide what to do from there. - Physical Exam Vital Signs Temp Pulse Resp BP 97.7 F L 72 18 125/63 H 04/04/18 13:06 04/04/18 13:06 04/04/18 13:06 04/04/18 13:06 General: Alert, Oriented x3, Cooperative, No apparent distress HEENT: Atraumatic, Normocephalic Oral: Moist Mucosa Skin: Ulcer/ Wound Wound Measurements and Assessment WC - Nurse 1 - General Ulcer Measurement Start: 03/07/18 12:43 Freq: Status: Active Protocol: Activity Type Activity Date Activity User E-Sign Co-Sign Detail Recorded Client Recorded Date Recorded By Document 04/04/18 13:06 AN [id number] 04/04/18 13:20 AN 04/04/18 13:06 Wound Center Nurse 1 [Ulcer Assessment] #9 Lower Lumbar- Midline -Current Size (cm) - Length 13.8 -Current Size (cm) - Width 4.5 -Current Size (cm) - Depth 0.3 -Total Square Cm 62.10 -Epithelialization None Present -Tunneling No -Undermining/Tunneling No -Circular Undermining No -Classification - Thickness Full Thickness without Exposed Support Structure -Exudate Amt Large (67-100%) -Exudate Type Yellow/Green -Wound Margin Distinct, Outline Attached -Granulation Amt Small (1-33%) -Granulation Quality Red -Slough/Fibrin Yes -Necrosis Amt Large (67-100%) -Necrotic Tissue Type Adherent Slough -Structure Exposed Fat Layer Exposed -Texture (Uma-wound Skin Appearance) Assessed -Moisture (Uma-wound Skin Appearance Assessed ) -Color (Uma-wound Skin Appearance) Assessed -Temperature (Uma-wound Skin No Abnormality Appearance) (Pt Warm) -Tenderness on Palpation (Uma-wound Yes Skin Appearance) -Ulcer Cleansing Rinsed/ Irrigated with Saline -Foul Odor after Cleansing No -Anesthetic Used 4% Lidocaine Solution WC - Nurse 2 - General Ulcer CM Notes Start: 03/07/18 12:43 Freq: Status: Active Protocol: Activity Type Activity Date Activity User E-Sign Co-Sign Detail Recorded Client Recorded Date Recorded By Document 04/04/18 13:27 [id number] 04/04/18 13:40 04/04/18 13:27 Wound Center Nurse 2 [Procedure/Treatment] -Time 13:27 -Correct Patient Yes -Correct Side, Site, Position Yes -Correct Procedure Yes -Procedure Performed Yes -Type of Procedure Debridement -Clinical Debridement Subcutaneous -Post Debridement Size (cm) - Length 13.7 -Post Debridement Size (cm) - Width 4.3 -Post Debridement Size (cm) - Depth 0.5 -Total Square Cm 58.91 -Wound/Ulcer Outcome Not Healed -Ulcer Cleansing Rinsed/ Irrigated with Saline -Foul Odor after Cleansing No -Bioengineered Tissue No -Bleeding Controlled with Pressure -Offloading No -Treatment Response Procedure Tolerated Well [See Physician Procedure note for Specifics] Pain Scale: 0-10 Numeric [Pain] -Is Patient Pain Free? Yes Psych/Mental Status: Normal Affect, Appropriate Debridement Note Post-Debridement Measurements/Treatment WC - Nurse 2 - General Ulcer CM Notes Start: 03/07/18 12:43 Freq: Status: Active Protocol: Activity Type Activity Date Activity User E-Sign Co-Sign Detail Recorded Client Recorded Date Recorded By Document 03/07/18 13:04 [id number] 03/07/18 13:26 CS Document 03/14/18 13:46 [id number] 03/14/18 14:10 CS Document 03/21/18 13:04 [id number] 03/21/18 13:19 CS Document 03/25/18 15:47 [id number] 03/25/18 15:58 CS Document 04/04/18 13:27 [id number] 04/04/18 13:40 03/07/18 03/14/18 03/21/18 13:04 13:46 13:04 Wound Center Nurse 2 #9 Lower Lumbar- Midline -Time 13:04 13:46 13:07 -Correct Patient Yes Yes Yes -Correct Side, Site, Position Yes Yes Yes -Correct Procedure Yes Yes Yes -Procedure Performed Yes Yes Yes -Type of Procedure Debridement Debridement Debridement -Clinical Debridement Subcutaneous Subcutaneous Subcutaneous -Post Debridement Size (cm) - Length 13.6 13.7 13.7 -Post Debridement Size (cm) - Width 4.3 4.5 4.2 -Post Debridement Size (cm) - Depth 0.4 0.5 0.4 -Total Square Cm 58.48 61.65 57.54 -Wound/Ulcer Outcome Not Healed Not Healed Not Healed -Ulcer Cleansing Rinsed/ Rinsed/ Rinsed/ Irrigated with Irrigated with Irrigated with Saline Saline Saline -Foul Odor after Cleansing No No No -Bioengineered Tissue Yes Yes No -Type of bioengineered Tissue [id number] -Expiration Date 08/11/20 08/11/20 -Product Lot Number [id number] -Percent Used 100 100 -Saline Lot Number [id number] -Bleeding Controlled with Pressure Pressure Pressure SURGIFOAM -Offloading -Treatment Response Procedure Procedure Procedure Tolerated Well Tolerated Well Tolerated Well Pain Scale: 0-10 Numeric Is Patient Pain Free? No No Yes 03/25/18 04/04/18 15:47 13:27 Wound Center Nurse 2 #9 Lower Lumbar- Midline -Time 15:49 13:27 -Correct Patient Yes Yes -Correct Side, Site, Position Yes Yes -Correct Procedure Yes Yes -Procedure Performed Yes Yes -Type of Procedure Debridement Debridement -Clinical Debridement Subcutaneous Subcutaneous -Post Debridement Size (cm) - Length 14.5 13.7 -Post Debridement Size (cm) - Width 4.8 4.3 -Post Debridement Size (cm) - Depth 1.6 0.5 -Total Square Cm 69.60 58.91 -Wound/Ulcer Outcome Not Healed Not Healed -Ulcer Cleansing Not Cleansed Rinsed/ Irrigated with Saline -Foul Odor after Cleansing No No -Bioengineered Tissue No No -Type of bioengineered Tissue -Expiration Date -Product Lot Number -Percent Used -Saline Lot Number -Bleeding Controlled with Silver Nitrate Pressure SURGIFOAM -Offloading No -Treatment Response Procedure Procedure Tolerated Well Tolerated Well Pain Scale: 0-10 Numeric Is Patient Pain Free? Yes Yes Wound debrided: lower lumbar midline Laterality: Not Applicable Type of Debridement: Excisional debridement Anesthesia Used: 4% Lidocaine Solution Depth: Down to and including healthy tissue, in the subcutaneous layer Percentage of wound debrided: 100 Instrument Used: 7mm curette Tissue Removed: yellow slough, devitalized tissue Severity: Fat Layer Exposed Amount of bleeding with debridement: Mild Bleeding Controlled with: Compression and gauze Patient tolerated procedure well Assessment/Plan Active Problems (Last Reviewed 11/19/17 @ 16:27 by Micky Mauro MD) Nonhealing surgical wound (Chronic) Open wound of lower back (Chronic) Chronic kidney disease (Chronic) Assessment: chronic surgical wound dehiscence lumbar with complex abscess and recent surgical debridement. malnutrition. other multiple comorbidities. edema bilateral lower extremities. Bleeding site from within wound controlled with combination of silver nitrate and Surgifoam. Bleeding appears to be controlled. venous insufficiency. immunocompromised status. Plan: Debridement done as documented above. Procedure was well-tolerated. Purapply applications completed. Will have him use Aquacel Extra and will continue to use gauze and ABDs with changes once-twice daily. CT lumbar spine was negative for abscess. Continue increased protein intake. F/U in [address] Wick.
--- NOTE | 2018-04-04 17:49 | PN.PCM_ITS ---
(1) Nonhealing surgical wound Status: Chronic Current Visit: Yes Qualifiers: Encounter type: subsequent encounter Code(s): T81.89XA - Other complications of procedures, not elsewhere classified, initial encounter (2) Open wound of lower back Status: Chronic Current Visit: Yes Code(s): S31.000A - Unspecified open wound of lower back and pelvis without penetration into retroperitoneum, initial encounter (3) Chronic kidney disease Status: Chronic Current Visit: Yes Qualifiers: Chronic kidney disease stage: stage 3 (moderate) Code(s): N18.9 - Chronic kidney disease, unspecified (4) Cellulitis Status: Resolved Current Visit: No Qualifiers: Site of cellulitis: trunk Site of cellulitis of trunk: back Qualified Code(s): L03.312 - Cellulitis of back [any part except buttock] Code(s): L03.90 - Cellulitis, unspecified Type of Wound Date of Service: 04/04/18 Chief Complaint: Nonhealing surgical wound of lower back History of Wound: Mr. Marshall is a 72-yo who has been seen here at the wound center for a nonhealing surgical wound of his lower back s/p surgical debridement for an abscess s/p lumbar spine surgery. His original surgery on his lower back was approximately 18 months ago and he has had multiple complications since that time. He underwent surgical debridement on 03/04/[address] Davila at [facility] in [place] and was discharged with a wound vac for healing by secondary intention with possible muscle flap closure in the future. He followed up with his surgeon on 04/18/17 for further evaluation and recommendations and they plan to close the wound with a muscle flap but he continues to develop infections. He is also being seen by Infectious Disease as needed. CT 02/2018 did not show any abscess. Progress of Wound: Cuong is here for follow-up of his nonhealing surgical wound of his lower back. He continues to be having a significant amount of increased pain in his right low back with some pain into his legs and left foot. His has only been having to change the dressing once daily. Has been using gauze and ABDs and Aquacel. He has had 10 applications of Purapply with mild improvement. He saw a plastic surgeon at [facility] on 04/02/18 who is hopeful to close Cuong's surgical wound with a muscle flap. He requested additional records of CT scans as well as information on radiation that was done previously and will review these records and decide what to do from there. - Physical Exam Vital Signs Temp Pulse Resp BP 97.7 F L 72 18 125/63 H 04/04/18 13:06 04/04/18 13:06 04/04/18 13:06 04/04/18 13:06 General: Alert, Oriented x3, Cooperative, No apparent distress HEENT: Atraumatic, Normocephalic Oral: Moist Mucosa Skin: Ulcer/ Wound Wound Measurements and Assessment WC - Nurse 1 - General Ulcer Measurement Start: 03/07/18 12:43 Freq: Status: Active Protocol: Activity Type Activity Date Activity User E-Sign Co-Sign Detail Recorded Client Recorded Date Recorded By Document 04/04/18 13:06 AN [id number] 04/04/18 13:20 AN 04/04/18 13:06 Wound Center Nurse 1 [Ulcer Assessment] #9 Lower Lumbar- Midline -Current Size (cm) - Length 13.8 -Current Size (cm) - Width 4.5 -Current Size (cm) - Depth 0.3 -Total Square Cm 62.10 -Epithelialization None Present -Tunneling No -Undermining/Tunneling No -Circular Undermining No -Classification - Thickness Full Thickness without Exposed Support Structure -Exudate Amt Large (67-100%) -Exudate Type Yellow/Green -Wound Margin Distinct, Outline Attached -Granulation Amt Small (1-33%) -Granulation Quality Red -Slough/Fibrin Yes -Necrosis Amt Large (67-100%) -Necrotic Tissue Type Adherent Slough -Structure Exposed Fat Layer Exposed -Texture (Uma-wound Skin Appearance) Assessed -Moisture (Uma-wound Skin Appearance Assessed ) -Color (Uma-wound Skin Appearance) Assessed -Temperature (Uma-wound Skin No Abnormality Appearance) (Pt Warm) -Tenderness on Palpation (Uma-wound Yes Skin Appearance) -Ulcer Cleansing Rinsed/ Irrigated with Saline -Foul Odor after Cleansing No -Anesthetic Used 4% Lidocaine Solution WC - Nurse 2 - General Ulcer CM Notes Start: 03/07/18 12:43 Freq: Status: Active Protocol: Activity Type Activity Date Activity User E-Sign Co-Sign Detail Recorded Client Recorded Date Recorded By Document 04/04/18 13:27 [id number] 04/04/18 13:40 04/04/18 13:27 Wound Center Nurse 2 [Procedure/Treatment] -Time 13:27 -Correct Patient Yes -Correct Side, Site, Position Yes -Correct Procedure Yes -Procedure Performed Yes -Type of Procedure Debridement -Clinical Debridement Subcutaneous -Post Debridement Size (cm) - Length 13.7 -Post Debridement Size (cm) - Width 4.3 -Post Debridement Size (cm) - Depth 0.5 -Total Square Cm 58.91 -Wound/Ulcer Outcome Not Healed -Ulcer Cleansing Rinsed/ Irrigated with Saline -Foul Odor after Cleansing No -Bioengineered Tissue No -Bleeding Controlled with Pressure -Offloading No -Treatment Response Procedure Tolerated Well [See Physician Procedure note for Specifics] Pain Scale: 0-10 Numeric [Pain] -Is Patient Pain Free? Yes Psych/Mental Status: Normal Affect, Appropriate Debridement Note Post-Debridement Measurements/Treatment WC - Nurse 2 - General Ulcer CM Notes Start: 03/07/18 12:43 Freq: Status: Active Protocol: Activity Type Activity Date Activity User E-Sign Co-Sign Detail Recorded Client Recorded Date Recorded By Document 03/07/18 13:04 [id number] 03/07/18 13:26 CS Document 03/14/18 13:46 [id number] 03/14/18 14:10 CS Document 03/21/18 13:04 [id number] 03/21/18 13:19 CS Document 03/25/18 15:47 [id number] 03/25/18 15:58 CS Document 04/04/18 13:27 [id number] 04/04/18 13:40 03/07/18 03/14/18 03/21/18 13:04 13:46 13:04 Wound Center Nurse 2 #9 Lower Lumbar- Midline -Time 13:04 13:46 13:07 -Correct Patient Yes Yes Yes -Correct Side, Site, Position Yes Yes Yes -Correct Procedure Yes Yes Yes -Procedure Performed Yes Yes Yes -Type of Procedure Debridement Debridement Debridement -Clinical Debridement Subcutaneous Subcutaneous Subcutaneous -Post Debridement Size (cm) - Length 13.6 13.7 13.7 -Post Debridement Size (cm) - Width 4.3 4.5 4.2 -Post Debridement Size (cm) - Depth 0.4 0.5 0.4 -Total Square Cm 58.48 61.65 57.54 -Wound/Ulcer Outcome Not Healed Not Healed Not Healed -Ulcer Cleansing Rinsed/ Rinsed/ Rinsed/ Irrigated with Irrigated with Irrigated with Saline Saline Saline -Foul Odor after Cleansing No No No -Bioengineered Tissue Yes Yes No -Type of bioengineered Tissue [id number] -Expiration Date 08/11/20 08/11/20 -Product Lot Number [id number] -Percent Used 100 100 -Saline Lot Number [id number] -Bleeding Controlled with Pressure Pressure Pressure SURGIFOAM -Offloading -Treatment Response Procedure Procedure Procedure Tolerated Well Tolerated Well Tolerated Well Pain Scale: 0-10 Numeric Is Patient Pain Free? No No Yes 03/25/18 04/04/18 15:47 13:27 Wound Center Nurse 2 #9 Lower Lumbar- Midline -Time 15:49 13:27 -Correct Patient Yes Yes -Correct Side, Site, Position Yes Yes -Correct Procedure Yes Yes -Procedure Performed Yes Yes -Type of Procedure Debridement Debridement -Clinical Debridement Subcutaneous Subcutaneous -Post Debridement Size (cm) - Length 14.5 13.7 -Post Debridement Size (cm) - Width 4.8 4.3 -Post Debridement Size (cm) - Depth 1.6 0.5 -Total Square Cm 69.60 58.91 -Wound/Ulcer Outcome Not Healed Not Healed -Ulcer Cleansing Not Cleansed Rinsed/ Irrigated with Saline -Foul Odor after Cleansing No No -Bioengineered Tissue No No -Type of bioengineered Tissue -Expiration Date -Product Lot Number -Percent Used -Saline Lot Number -Bleeding Controlled with Silver Nitrate Pressure SURGIFOAM -Offloading No -Treatment Response Procedure Procedure Tolerated Well Tolerated Well Pain Scale: 0-10 Numeric Is Patient Pain Free? Yes Yes Wound debrided: lower lumbar midline Laterality: Not Applicable Type of Debridement: Excisional debridement Anesthesia Used: 4% Lidocaine Solution Depth: Down to and including healthy tissue, in the subcutaneous layer Percentage of wound debrided: 100 Instrument Used: 7mm curette Tissue Removed: yellow slough, devitalized tissue Severity: Fat Layer Exposed Amount of bleeding with debridement: Mild Bleeding Controlled with: Compression and gauze Patient tolerated procedure well Assessment/Plan Active Problems (Last Reviewed 11/19/17 @ 16:27 by Micky Mauro MD) Nonhealing surgical wound (Chronic) Open wound of lower back (Chronic) Chronic kidney disease (Chronic) Assessment: chronic surgical wound dehiscence lumbar with complex abscess and recent surgical debridement. malnutrition. other multiple comorbidities. edema bilateral lower extremities. Bleeding site from within wound controlled with combination of silver nitrate and Surgifoam. Bleeding appears to be controlled. venous insufficiency. immunocompromised status. Plan: Debridement done as documented above. Procedure was well-tolerated. Purapply applications completed. Will have him use Aquacel Extra and will continue to use gauze and ABDs with changes once-twice daily. CT lumbar spine was negative for abscess. Continue increased protein intake. F/U in [address] Wick.
== END 2018-04-04 23:59 ==
LOC: WC 13:00
PROVIDERS: Family Provider Family Medicine; PCP Family Medicine; Referring Provider Family Medicine; Visit Provider Family Medicine
DX: T81.30XA Disruption of wound, unspecified, initial encounter (principal); L03.312 Cellulitis of back [any part except buttock and flank]; Y83.8 Other surgical procedures as the cause of abnormal reaction of the patient, or of later complication, without mention of misadventure at the time of the procedure; I87.2 Venous insufficiency (chronic) (peripheral); B99.8 Other infectious disease; N18.3 Chronic kidney disease, stage 3 (moderate); T81.49XA Infection following a procedure, other surgical site, initial encounter; D63.1 Anemia in chronic kidney disease
CPT/HCPCS: 11042; 11045; 15271; 15272; 36415; 80069; 85025; 87070; 87075; 87077; 87186; 87205; 96372; J0885; Q4172

== ENCOUNTER → 2018-04-08 12:51 | Outpatient (CLI) | payer MEDICARE, OTHER, SELFPAY ==
[2015-10-31 10:00] VITALS: BMI 34.9
[2018-04-04 13:06] VITALS: BMI 56.5
[2018-04-08 13:18] LABS: Absolute Lymphocyte Count 1.11 X10^3/ul (0.83-4.51); Absolute Neutrophil Count 4.6 X10^3/uL (2.0-7.7); Basophil# 0.02 X10^3/uL; Basophil% 0.3 % (0-1); Eosinophil# 0.18 X10^3/uL; Eosinophils% 2.7 % (0-5); Hematocrit 28.8 % (40-54); Hemoglobin 9.1 g/dl (13.0-16.5); Lymphocyte # 1.11 X10^3/ul (4.0); Lymphocyte % 16.5 % (19-41); Mean Corp Hgb Conc 31.6 g/gl (32-36); Mean Corpuscular Hgb 33.6 pg (27.0-32.0); Mean Corpuscular Volume 106.3 fL (80-94); Mean Platelet Vol. 9.1 fl (6.2-12.0); Monocyte# 0.85 X10^3/uL; Monocyte% 12.6 % (0-10); Neutrophil # 4.58 X10^3/uL (2.7-7.7); Neutrophil % 67.9 % (47-70); Platelet Count 241 K/mm3 (150-450); RBC Distribution Width CV 17.6 % (11.6-14.6); RBC Distribution Width SD 67.5 fl (35.1-43.9); Red Blood Count 2.71 M/mm3 (4.6-6.2); White Blood Count 6.7 K/mm3 (4.4-11.0)
[2018-04-08 13:19] LABS: Differential Indicated SCAN CRITERIA MET; POSITIVE COUNT NO; POSITIVE DIFFERENTIAL NO; POSITIVE MORPHOLOGY YES
[2018-04-08 13:26] LABS: BUN 31 mg/dL (7-18); BUN/Creat Ratio 28.4 RATIO (10-20); Calcium,Total 8.9 mg/dL (8.5-10.1); Chloride 103 mmol/L (98-107); Creatinine, Serum 1.09 mg/dL (0.70-1.30); EST Glomerular Filtration Rate 70 mL/min (>60); Est Glom Filt Rate - Afr Amer 85 mL/min (>60); Glucose 98 mg/dL (74-106); Phosphorus 2.2 mg/dL (2.5-4.9); Potassium 3.6 mmol/L (3.5-5.1); Sodium Level 139 mmol/L (136-145)
[2018-04-08 13:38] VITALS: BP 136/69; PULSE 74; RESP 16; TEMP 36.7; O2SAT 97; BMI 27.8
[2018-04-08 13:38] LABS: Platelet Estimate ADEQUATE (ADEQ)
[2018-04-08 13:39] LABS: Anisocytosis 1+; Hypochromasia 1+; Macrocytosis 1+
== END ==
PROVIDERS: Family Provider Family Medicine; PCP Family Medicine; Referring Provider Internal Medicine Nephrology; Visit Provider Internal Medicine Nephrology
DX: N18.3 Chronic kidney disease, stage 3 (moderate) (principal); D63.1 Anemia in chronic kidney disease
CPT/HCPCS: 36415; 80069; 85025; 96372; J0885

== ENCOUNTER → 2018-04-21 13:15 | Outpatient (CLI) | payer MEDICARE, OTHER, SELFPAY ==
[2015-10-31 10:00] VITALS: BMI 34.9
[2018-04-08 13:38] VITALS: BMI 27.8
[2018-04-18 12:51] VITALS: BMI 27.8
[2018-04-21 13:05] VITALS: BP 130/70; PULSE 83; RESP 18; TEMP 36.9; O2SAT 92; BMI 27.7
[2018-04-21 13:30] LABS: Absolute Lymphocyte Count 0.81 X10^3/ul (0.83-4.51); Absolute Neutrophil Count 3.4 X10^3/uL (2.0-7.7); Basophil# 0.02 X10^3/uL; Basophil% 0.4 % (0-1); Differential Indicated SCAN CRITERIA MET; Eosinophil# 0.21 X10^3/uL; Eosinophils% 4.2 % (0-5); Hematocrit 28.5 % (40-54); Hemoglobin 9.1 g/dl (13.0-16.5); Lymphocyte # 0.81 X10^3/ul (4.0); Lymphocyte % 16.2 % (19-41); Mean Corp Hgb Conc 31.9 g/gl (32-36); Mean Corpuscular Volume 106.3 fL (80-94); Monocyte# 0.56 X10^3/uL; Monocyte% 11.2 % (0-10); Neutrophil # 3.39 X10^3/uL (2.7-7.7); POSITIVE COUNT NO; POSITIVE DIFFERENTIAL NO; POSITIVE MORPHOLOGY YES; Platelet Count 267 K/mm3 (150-450); RBC Distribution Width CV 17.3 % (11.6-14.6); RBC Distribution Width SD 66.4 fl (35.1-43.9); Red Blood Count 2.68 M/mm3 (4.6-6.2)
[2018-04-21 13:40] LABS: BUN 28 mg/dL (7-18); Calcium,Total 8.5 mg/dL (8.5-10.1); Chloride 101 mmol/L (98-107); Creatinine, Serum 1.12 mg/dL (0.70-1.30); EST Glomerular Filtration Rate 68 mL/min (>60); Est Glom Filt Rate - Afr Amer 82 mL/min (>60); Estimated Creatinine Clearance 55.98 ml/min; Glucose 102 mg/dL (74-106); Phosphorus 2.6 mg/dL (2.5-4.9); Potassium 3.6 mmol/L (3.5-5.1); Sodium Level 136 mmol/L (136-145)
[2018-04-21 13:45] LABS: Anisocytosis 1+; Hypochromasia 2+; Macrocytosis 1+; Platelet Estimate ADEQUATE (ADEQ)
--- OUTSIDE RECORDS SUMMARY | 2018-07-24 04:01 | XMS RPT_ITS ---
:1945 Author Organization OHIP Support Name Relationship Address Phone R Unavailable Unavailable Unavailable SIMONE, KAMILAH Unavailable [address] + [place] [address] R Unavailable Unavailable Unavailable SIMONE, KAMILAH Unavailable [address] + [place] [address] R Unavailable Unavailable Unavailable SIMONE, KAMILAH Unavailable [address] + [place] [address] R Unavailable Unavailable Unavailable SIMONE, KAMILAH Unavailable [address] + [place] [address] R Unavailable Unavailable Unavailable SIMONE, KAMILAH Unavailable [address] + [place] [address] R Unavailable Unavailable Unavailable SIMONE, KAMILAH Unavailable [address] + [place] [address] R Unavailable Unavailable Unavailable SIMONE, KAMILAH Unavailable [address] + [place] [address] R Unavailable Unavailable Unavailable SIMONE, KAMILAH Unavailable [address] + [place] [address] R Unavailable Unavailable Unavailable SIMONE, KAMILAH Unavailable [address] + [place] [address] R Unavailable Unavailable Unavailable SIMONE, KAMILAH Unavailable [address] + [place] [address] R Unavailable Unavailable Unavailable SIMONE, KAMILAH Unavailable [address] + [place] [address] R Unavailable Unavailable Unavailable SIMONE, KAMILAH Unavailable [address] + [place] [address] R Unavailable Unavailable Unavailable SIMONE, KAMILAH Unavailable [address] + [place] [address] R Unavailable Unavailable Unavailable SIMONE, KAMILAH Unavailable [address] + [place] [address] R Unavailable Unavailable Unavailable SIMONE, KAMILAH Unavailable [address] + [place] [address] R Unavailable Unavailable Unavailable SIMONE, KAMILAH Unavailable [address] + [place] [address] R Unavailable Unavailable Unavailable SIMONE, KAMILAH Unavailable [address] + [place] [address] R Unavailable Unavailable Unavailable SIMONE, KAMILAH Unavailable [address] + [place] [address] R Unavailable Unavailable Unavailable SIMONE, KAMILAH Unavailable [address] + [place] [address] R Unavailable Unavailable Unavailable SIMONE, KAMILAH Unavailable [address] + [place] [address] R Unavailable Unavailable Unavailable SIMONE, KAMILAH Unavailable [address] + [place] [address] R Unavailable Unavailable Unavailable SIMONE, KAMILAH Unavailable [address] + [place] [address] R Unavailable Unavailable Unavailable SIMONE, KAMILAH Unavailable [address] + [place] [address] R Unavailable Unavailable Unavailable SIMONE, KAMILAH Unavailable [address] + [place] [address] R Unavailable Unavailable Unavailable SIMONE, KAMILAH Unavailable [address] + [place] [address] R Unavailable Unavailable Unavailable SIMONE, KAMILAH Unavailable [address] + [place] [address] R Unavailable Unavailable Unavailable SIMONE, KAMILAH Unavailable [address] + [place] [address] R Unavailable Unavailable Unavailable SIMONE, KAMILAH Unavailable [address] + [place] [address] R Unavailable Unavailable Unavailable SIMONE, KAMILAH Unavailable [address] + [place] [address] SIMONE, KAMILAH Unavailable Unavailable Unavailable SIMONE, CUONG Unavailable Unavailable Unavailable R Unavailable Unavailable Unavailable SIMONE, KAMILAH Unavailable [address] + [place] [address] R Unavailable Unavailable Unavailable SIMONE, KAMILAH Unavailable [address] + [place] [address] SIMONE, KAMILAH Unavailable Unavailable Unavailable SIMONE, CUONG Unavailable Unavailable Unavailable R Unavailable Unavailable Unavailable SIMONE, KAMILAH Unavailable [address] + [place] [address] R Unavailable Unavailable Unavailable SIMONE, KAMILAH Unavailable [address] + [place] [address] R Unavailable Unavailable Unavailable SIMONE, KAMILAH Unavailable [address] + [place] [address] R Unavailable Unavailable Unavailable SIMONE, KAMILAH Unavailable [address] + [place] [address] R Unavailable Unavailable Unavailable SIMONE, KAMILAH Unavailable [address] + [place] [address] R Unavailable Unavailable Unavailable SIMONE, KAMILAH Unavailable [address] + [place] [address] R Unavailable Unavailable Unavailable SIMONE, KAMILAH Unavailable [address] + [place] [address] R Unavailable Unavailable Unavailable SIMONE, KAMILAH Unavailable [address] + [place] [address] R Unavailable Unavailable Unavailable SIMONE, KAMILAH Unavailable [address] + [place] [address] R Unavailable Unavailable Unavailable SIMONE, KAMILAH Unavailable [address] + [place] [address] R Unavailable Unavailable Unavailable SIMONE, KAMILAH Unavailable [address] + [place] [address] R Unavailable Unavailable Unavailable SIMONE, KAMILAH Unavailable [address] + [place] [address] R Unavailable Unavailable Unavailable SIMONE, KAMILAH Unavailable [address] + [place] [address] R Unavailable Unavailable Unavailable SIMONE, KAMILAH Unavailable [address] + [place] [address] R Unavailable Unavailable Unavailable SIMONE, KAMILAH Unavailable [address] + [place] [address] R Unavailable Unavailable Unavailable SIMONE, KAMILAH Unavailable [address] + [place] [address] R Unavailable Unavailable Unavailable SIMONE, KAMILAH Unavailable [address] + [place] [address] R Unavailable Unavailable Unavailable SIMONE, KAMILAH Unavailable [address] + [place] [address] R Unavailable Unavailable Unavailable SIMONE, KAMILAH Unavailable [address] + [place] [address] R Unavailable Unavailable Unavailable SIMONE, KAMILAH Unavailable [address] + [place] [address] SIMONE, KAMILAH Unavailable Unavailable Unavailable SIMONE, CUONG Unavailable Unavailable Unavailable R Unavailable Unavailable Unavailable SIMONE, KAMILAH Unavailable [address] + [place] [address] R Unavailable Unavailable Unavailable SIMONE, KAMILAH Unavailable [address] + [place] [address] R Unavailable Unavailable Unavailable SIMONE, KAMILAH Unavailable [address] + [place] [address] R Unavailable Unavailable Unavailable SIMONE, KAMILAH Unavailable [address] + [place] [address] R Unavailable Unavailable Unavailable SIMONE, KAMILAH Unavailable [address] + [place] [address] R Unavailable Unavailable Unavailable SIMONE, KAMILAH Unavailable [address] + [place] [address] R Unavailable Unavailable Unavailable SIMONE, KAMILAH Unavailable [address] + [place] [address] R Unavailable Unavailable Unavailable SIMONE, KAMILAH Unavailable [address] + [place] [address] R Unavailable Unavailable Unavailable SIMONE, KAMILAH Unavailable [address] + [place] [address] R Unavailable Unavailable Unavailable SIMONE, KAMILAH Unavailable [address] + [place] [address] R Unavailable Unavailable Unavailable SIMONE, KAMILAH Unavailable [address] + [place] [address] R Unavailable Unavailable Unavailable SIMONE, KAMILAH Unavailable [address] + [place] [address] R Unavailable Unavailable Unavailable SIMONE, KAMILAH Unavailable [address] + [place] [address] R Unavailable Unavailable Unavailable SIMONE, KAMILAH Unavailable [address] + [place] [address] R Unavailable Unavailable Unavailable SIMONE, KAMILAH Unavailable [address] + [place] [address] R Unavailable Unavailable Unavailable SIMONE, KAMILAH Unavailable [address] + [place] [address] R Unavailable Unavailable Unavailable SIMONE, KAMILAH Unavailable [address] + [place] [address] R Unavailable Unavailable Unavailable SIMONE, KAMILAH Unavailable [address] + [place] [address] R Unavailable Unavailable Unavailable SIMONE, KAMILAH Unavailable [address] + [place] [address] R Unavailable Unavailable Unavailable SIMONE, KAMILAH Unavailable [address] + [place] [address] SIMONE, KAMILAH Unavailable Unavailable Unavailable SIMONE, CUONG Unavailable Unavailable Unavailable R Unavailable Unavailable Unavailable SIMONE, KAMILAH Unavailable [address] + [place] [address] R Unavailable Unavailable Unavailable SIMONE, KAMILAH Unavailable [address] + [place] [address] R Unavailable Unavailable Unavailable SIMONE, KAMILAH Unavailable [address] + [place] [address] R Unavailable Unavailable Unavailable SIMONE, KAMILAH Unavailable [address] + [place] [address] R Unavailable Unavailable Unavailable SIMONE, KAMILAH Unavailable [address] + [place] [address] R Unavailable Unavailable Unavailable SIMONE, KAMILAH Unavailable [address] + [place] [address] R Unavailable Unavailable Unavailable SIMONE, KAMILAH Unavailable [address] + [place] [address] R Unavailable Unavailable Unavailable SIMONE, KAMILAH Unavailable [address] + [place] [address] R Unavailable Unavailable Unavailable SIMONE, KAMILAH Unavailable [address] + [place] [address] R Unavailable Unavailable Unavailable SIMONE, KAMILAH Unavailable [address] + [place] [address] R Unavailable Unavailable Unavailable SIMONE, KAMILAH Unavailable [address] + [place] [address] R Unavailable Unavailable Unavailable SIMONE, KAMILAH Unavailable [address] + [place] [address] R Unavailable Unavailable Unavailable SIMONE, KAMILAH Unavailable [address] + [place] [address] R Unavailable Unavailable Unavailable SIMONE, KAMILAH Unavailable [address] + [place] [address] R Unavailable Unavailable Unavailable SIMONE, KAMILAH Unavailable [address] + [place] [address] R Unavailable Unavailable Unavailable SIMONE, KAMILAH Unavailable [address] + [place] [address] R Unavailable Unavailable Unavailable SIMONE, KAMILAH Unavailable [address] + [place] [address] R Unavailable Unavailable Unavailable SIMONE, KAMILAH Unavailable [address] + [place] [address] R Unavailable Unavailable Unavailable SIMONE, KAMILAH Unavailable [address] + [place] [address] SIMONE, KAMILAH Unavailable Unavailable Unavailable SIMONE, CUONG Unavailable Unavailable Unavailable SIMONE, KAMILAH Unavailable Unavailable Unavailable SIMONE CUONG Unavailable Unavailable Unavailable R Unavailable Unavailable Unavailable SIMONE, KAMILAH Unavailable [address] + [place] [address] R Unavailable Unavailable Unavailable SIMONE, KAMILAH Unavailable [address] + [place] [address] R Unavailable Unavailable Unavailable SIMONE, KAMILAH Unavailable [address] + [place] [address] Care Team Providers Name Role Phone WALIMONICAHitesh KALPANA Attending Unavailable SREEDHAR BLEVINS Attending Unavailable LEXA, LINUS A Referring Unavailable CHANDAWARKAR, XANDER Attending Unavailable CHANDAWARKAR, XANDER Referring Unavailable LEXA, LINUS A Primary Care Unavailable KENTRELL MANCIA Attending Unavailable CHANDAWARKAR, XANDER Referring Unavailable LEXA, LINUS A Primary Care Unavailable JAN DUMONT Referring Unavailable LEXA, LINUS A Primary Care Unavailable RADHA CALDERA Admitting Unavailable CONSULT, INFECTIOUS DISEASE Consulting Unavailable DAVY MANDUJANO Attending Unavailable CHANDAWARKAR, XANDER Attending Unavailable LEAX, LINUS A Referring Unavailable LEXA, LINUS A Primary Care Unavailable CHANDAWARKAR, XANDER Attending Unavailable SELF, SELF Referring Unavailable LEXA, LINUS A Primary Care Unavailable CHANDAWARKAR, XANDER Attending Unavailable SELF, SELF Referring Unavailable LEXA, LINUS A Primary Care Unavailable JAQUI MOREAU, DR. ANGELO Khalil Attending Unavailable JAQUI MOREAU, DR. ANGELO Khalil Referring Unavailable LEXA DO, DR. LINUS Khalil. Primary Care Unavailable Yancy, Jayaprakash Attending Unavailable Yancy, Jayaprakash Referring Unavailable Lexa, Linus Primary Care Unavailable Yancy, Jayaprakash Attending Unavailable Yancy, Jayaprakash Referring Unavailable Lexa, Linus Primary Care Unavailable Monica Wick Attending Unavailable Lexa, Linus Primary Care Unavailable Yancy, Jayaprakash Attending Unavailable Yancy, Jayaprakash Referring Unavailable Lexa, Linus Primary Care Unavailable Monica Wick Attending Unavailable Monica Wick Referring Unavailable Lexa, Linus Primary Care Unavailable Yancy, Jayaprakash Attending Unavailable Yancy, Jayaprakash Referring Unavailable Lexa, Linus Primary Care Unavailable Monica Wick Attending Unavailable Lexa, Linus Primary Care Unavailable Yancy, Jayaprakash Attending Unavailable Yancy, Jayaprakash Referring Unavailable Lexa, Linus Primary Care Unavailable Lexa, Linus Primary Care Unavailable Myles, Cisco Admitting Unavailable SlabFarooq mazariegos Consulting Unavailable Ady Dumont Attending Unavailable Zunilda, Micky Consulting Unavailable Olivier Paul.Anamaria. Consulting Unavailable Bakshaans, Aziz Consulting Unavailable KenJonathan giraldo Consulting Unavailable Dimas Major Consulting Unavailable Myles, Cisco Admitting Unavailable Cleve, Solitario Attending Unavailable Lexa, Linus Primary Care Unavailable Zunilda, Micky Consulting Unavailable Olivier Paul.O. Consulting Unavailable Myles, Cisco Consulting Unavailable Myles, Cisco Admitting Unavailable Abbey Pina Attending Unavailable Lexa, Linus Primary Care Unavailable Zunilda, Micky Consulting Unavailable Olivier Paul.O. Consulting Unavailable Myles, Cisco Consulting Unavailable Myles, Cisco Admitting Unavailable Myles, Cisco Attending Unavailable Lexa, Linus Primary Care Unavailable Zunilda, [place] Consulting Unavailable Olivier Paul.O. Consulting Unavailable Myles, Cisco Consulting Unavailable Myles, Cisco Admitting Unavailable Olivier Paul.O. Attending Unavailable Lexa, Linus Primary Care Unavailable Zunilda, [place] Consulting Unavailable Barrera Mendes, Olivier.O. Consulting Unavailable Bakhous, Aziz Consulting Unavailable Ken, Jonathan Consulting Unavailable Farooq Cook Consulting Unavailable Myles, Cisco Consulting Unavailable Myles, Cisco Admitting Unavailable Cleve, Solitario Attending Unavailable Lexa, Linus Primary Care Unavailable Zunilda, [place] Consulting Unavailable Barrera Mendes, D.O. Consulting Unavailable Bakhous, Aziz Consulting Unavailable Ken, Jonathan Consulting Unavailable Slaby, Farooq Consulting Unavailable Myles, Cisco Consulting Unavailable Myles, Cisco Admitting Unavailable Myles, Cisco Attending Unavailable Lexa, Linus Primary Care Unavailable Zunilda, [place] Consulting Unavailable Barrera Mendes, D.O. Consulting Unavailable Bakhous, Aziz Consulting Unavailable Ken, Jonathan Consulting Unavailable Farooq Cook Consulting Unavailable Myles, Cisco Consulting Unavailable Myles, Cisco Admitting Unavailable Olivier Paul.O. Attending Unavailable Lexa, Linus Primary Care Unavailable Zunilda, Micky Consulting Unavailable Barrera Mendes, D.O. Consulting Unavailable Bakhous, Aziz Consulting Unavailable Ken, Jonathan Consulting Unavailable Slaby, Farooq Consulting Unavailable Myles, Cisco Consulting Unavailable [facility], Cisco Admitting Unavailable Solitario Poon Attending Unavailable [facility] Primary Care Unavailable Slaby, Farooq Consulting Unavailable Zunilda, Micky Consulting Unavailable Olivier Paul.O. Consulting Unavailable Bakhous, Aziz Consulting Unavailable Ken, Jonathan Consulting Unavailable Myles, Cisco Consulting Unavailable [facility], Cisco Admitting Unavailable [facility], Cisco Attending Unavailable [facility] Primary Care Unavailable Slaby, Farooq Consulting Unavailable Zunilda, [place] Consulting Unavailable Barrera Mendes, Olivier.O. Consulting Unavailable Bakhous, Aziz Consulting Unavailable Ken, Jonathan Consulting Unavailable Myles, Cisco Consulting Unavailable [facility], Cisco Admitting Unavailable Marion Hutchison Attending Unavailable [facility] Primary Care Unavailable Slaby, Farooq Consulting Unavailable Zunilda, Micky Consulting Unavailable Olivier Paul.O. Consulting Unavailable Bakhous, Aziz Consulting Unavailable Ken, Jonathan Consulting Unavailable Jopperi, Ady Consulting Unavailable [facility], Cisco Admitting Unavailable Javier Pat Attending Unavailable [facility] Primary Care Unavailable Slaby, Farooq Consulting Unavailable Zunilda, [place] Consulting Unavailable Olivier Paul.O. Consulting Unavailable Bakhous, Aziz Consulting Unavailable Ken, Jonathan Consulting Unavailable Jopperi, Ady Consulting Unavailable [facility], Cisco Admitting Unavailable Jopperi, Ady Attending Unavailable [facility] Primary Care Unavailable Slaby, Farooq Consulting Unavailable Zunilda, Micky Consulting Unavailable Olivier Paul.O. Consulting Unavailable Bakhous, Aziz Consulting Unavailable Ken, Jonathan Consulting Unavailable Jopperi, Ady Consulting Unavailable [facility], Cisco Admitting Unavailable Jopperi, Ady Attending Unavailable [facility] Primary Care Unavailable Slaby, Farooq Consulting Unavailable Zunilda, [place] Consulting Unavailable Olivier Paul.O. Consulting Unavailable Bakhous, Aziz Consulting Unavailable Ken, Jonathan Consulting Unavailable Dimas Major Consulting Unavailable Jopperi, Ady Consulting Unavailable Myles, Cisco Admitting Unavailable Slaby, Farooq [facility]ending [facility] Unavailable Slaby, Farooq Consulting Unavailable Zunilda, Micky Consulting Unavailable Olivier Paul.O. Consulting Unavailable Bakhous, Aziz Consulting Unavailable Ken, Jonathan Consulting Unavailable Moriah, Dimas Consulting Unavailable Jopperi, Ady Consulting Unavailable Myles, Cisco Admitting Unavailable Edgard Dumontic Attending Unavailable Lexa, Lnius Primary Care Unavailable Farooq Cook Consulting Unavailable Zunilda, Micky Consulting Unavailable Barrera Mendes D.O. Consulting Unavailable Bakhous, Aziz Consulting Unavailable Ken, Jonathan Consulting Unavailable Moriah, Dimas Consulting Unavailable Jopperi, Ady Consulting Unavailable Monica Wick Attending Unavailable Lexa, Linus Primary Care Unavailable Honorio, Frank Chi Admitting Unavailable Honorio, Frank Chi Attending Unavailable Lexa, Linus Primary Care Unavailable Moriah, Dimas Consulting Unavailable Moriah, Dimas Attending Unavailable Lexa, Linus Primary Care Unavailable Moriah, Dimas Referring Unavailable Lexa, Linus Primary Care Unavailable Lucius Nevarez Attending Unavailable Marzena Jackson Attending Unavailable Dimas Major Attending Unavailable Moriah Dimas Referring Unavailable Lexa, Linus Primary Care Unavailable Dimas Major Attending Unavailable Moriah Dimas Referring Unavailable Lexa, Linus Primary Care Unavailable Dimas Major Attending Unavailable Yancy, Jayaprakash Attending Unavailable Yancy, Jayaprakash Referring Unavailable Lexa, Linsu Primary Care Unavailable Lexa, Linus Primary Care Unavailable Andi Arnett Attending Unavailable Abbey Pnia Attending Unavailable Myles, Cisco Referring Unavailable Farooq Cook Attending Unavailable Myles, Cisco Referring Unavailable Lexa, Linus Primary Care Unavailable Debbie Hillsbe Attending Unavailable Dimas Major Attending Unavailable Moriah Dimas Referring Unavailable Lexa, Linus Primary Care Unavailable Yancy, Jayaprakash Attending Unavailable Yancy, Jayaprakash Referring Unavailable Lexa, Linus Primary Care Unavailable Yancy, Jayaprakash Attending Unavailable Yancy, Jayaprakash Referring Unavailable Lexa, Linus Primary Care Unavailable Jeanne Suggs Attending Unavailable Garrick Hills Attending Unavailable Jeana Efewongbe Referring Unavailable Marzena Jackson Attending Unavailable [...] Jayaprakash Attending Unavailable Yancy, Jayaprakash Referring [facility] Unavailable Yancy, Jayaprakash Attending Unavailable Yancy, Jayaprakash Referring Unavailable Lexa, Linus Primary Care Unavailable Oleghe, Efewongbe Attending Unavailable Oleghe, Efewongbe Referring Unavailable Oleghe, Efewongbe Attending Unavailable Oleghe, Efewongbe Referring Unavailable Oleghe, Efewongbe Attending Unavailable Oleghe, Efewongbe Referring Unavailable Oleghe, Efewongbe Attending Unavailable Oleghe, Efewongbe Referring [facility] Unavailable Monica Wick Attending Unavailable Yancy, Jayaprakash Attending Unavailable Yancy, Jayaprakash Referring [facility]available [facility] Unavailable Yancy, Jayaprakash Attending Unavailable Yancy, Jayaprakash Referring Unavailable [facility] Unavailable Monica Wick Attending Unavailable [facility] Unavailable Yancy, Jayaprakash Attending Unavailable Yancy, Jayaprakash Referring Unavailable [facility] Unavailable Oleghe, Efewongbe Attending Unavailable Oleghe, Efewongbe Referring Unavailable Oleghe, Efewongbe Attending Unavailable Oleghe, Efewongbe Referring Unavailable Oleghe, Efewongbe Attending Unavailable Oleghe, Efewongbe Referring Unavailable Zunilda, Micky Attending Unavailable Lexa, Linus Referring [facility]available [facility] Unavailable Yancy, Jayaprakash Attending Unavailable Yancy, Jayaprakash Referring Unavailable Lexa, Linus Primary Care Unavailable Zunilda, [place] Attending Unavailable Zunilda, Micky Referring Unavailable Lexa, Linus Primary Care Unavailable Monica Wick Attending [facility] Unavailable Yancy, Jayaprakash Attending Unavailable Yancy, Jayaprakash Referring [facility]available [facility] Unavailable Oleghe, Efewongbe Attending Unavailable Zunilda, [place] Attending Unavailable Yancy, Jayaprakash Attending Unavailable Yancy, [...] Attending Unavailable Lexa, Linus Primary Care Unavailable Olelaye, Efewongbe Attending Unavailable Oleghe, Efewongbe Referring Unavailable [...] Primary Care Unavailable Malys, Monica Consulting Unavailable Monica Wick Attending Unavailable Monica Wick Referring Unavailable Lexa Linus Primary Care Unavailable Malaika [place] Attending Unavailable Malaika [place] Referring Unavailable Linus Lindquist Primary Care Unavailable PROBLEMS PROBLEMS DATE TYPE CONDITION / CODE ATTENDING STATUS SOURCE Unknown T81.30XA - Disruption of Monica Wick Active [place] 9 wound, unspecified, Community initial encounter / Hospital T81.30XA(ICD-10) Repository Unknown N18.3 - Chronic kidney Yancy, Active [place] disease, stage 3 [facility] (moderate) / Hospital N18.3(ICD-10) Repository Unknown D63.1 - Anemia in Yancy, Active [place] chronic kidney disease / [facility] D63.1(ICD-10) Hospital Repository Unknown D64.9 - Anemia, Yancy, Active [place] 8 unspecified / [facility] D64.9(ICD-10) Hospital Repository Unknown T81.4XXA - Infection Monica iWck Active [place] 8 following a procedure, Community initial encounter / Hospital T81.4XXA(ICD-10) Repository Unknown T81.89XA - Other Oleghe, Active [place] 8 complications of [facility] procedures, not Hospital elsewhere classified, Repository initial encounter / T81.89XA(ICD-10) Unknown S31.000A - Unspecified Oleghe, Active [place] 8 open wound of lower back [facility] and pelvis without Hospital penetration into Repository retroperitoneum, initial encounter / S31.000A(ICD-10) Unknown 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, unspecified / Hospital K52.9(ICD-10) Repository Admitting Follow-up / 145() KVNG, Active [place] 8 diagnosis [facility] Repository Unknown R06.09 - Other forms of Zunilda, Micky Active [place] dyspnea / R06.09(ICD-10) Community Hospital Repository Unknown 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, [place]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 / Community I42.0(ICD-10) Hospital Repository Unknown I10 - Essential Zunilda, Micky Active [place] (primary) hypertension / Community I10(ICD-10) Hospital Repository Unknown I48.0 - Paroxysmal Zunilda, [place] Active [place] atrial fibrillation / Community I48.0(ICD-10) Hospital Repository Unknown E78.00 - Pure Zunilda, [place] Active [place] 8 hypercholesterolemia, Community unspecified / Hospital E78.00(ICD-10) Repository Unknown 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, 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 / Hospital I27.21(ICD-10) Repository Unknown I50.32 - Chronic Zunilda, [place] Active [place] 8 diastolic (congestive) Community heart failure / Hospital I50.32(ICD-10) Repository Unknown E78.0 - Pure Zunilda, [place] Active [place] hypercholesterolemia / Community E78.0(ICD-10) Hospital Repository Unknown A41.9 - Sepsis, Moriah Active [place] unspecified organism / [facility] A41.9(ICD-10) Hospital Repository Unknown Z00.00 - Encounter for Moriah Active [place] 8 general adult medical [facility] examination without Hospital abnormal findings / Repository Z00.00(ICD-10) Unknown G06.1 - Intraspinal [place] Active [place] 8 abscess and granuloma / [facility] G06.1(ICD-10) Hospital Repository Unknown T81.31XA - Disruption of Honorio, Frank Chi Active [place] 8 external operation Community (surgical) wound, not Hospital elsewhere classified, Repository initial encounter / T81.31XA(ICD-10) Admitting Lobar pneumonia, DAVY MANDUJANO Active [facility] 8 diagnosis unspecified organism [place] ([facility]) / J18.1(ICD-10) [facility] Repository Admitting Acute systolic NAZIADAVY [place] Active [place] 8 diagnosis (congestive) heart University failure (HCC) / [facility] Medical I50.21(ICD-10) Center Repository Admitting Pasteurellosis / DAVY MANDUAJNO [facility] 8 diagnosis A28.0(ICD-10) University [facility] Repository Admitting Intraspinal abscess and DAVY MANDUJANO [place] [address] diagnosis granuloma / University G06.1(ICD-10) [facility] Repository Admitting Sepsis, unspecified DAVY MANDUJANO [place] [address] diagnosis organism (HCC) / University A41.9(ICD-10) [facility] Repository Admitting Unspecified open wound DAVY MANDUJANO [place] [address] diagnosis of unspecified back wall University of thorax [facility] Medical penetration into Center thoracic cavity, Repository subsequent encounter / S21.209D(ICD-10) Admitting Other specified DAVY MANDUJANO [place] [address] diagnosis postprocedural states / University Z98.890(ICD-10) [facility] Repository Admitting Other injury of DAVY MANDUJANO [place] [address] diagnosis unspecified body region, University initial encounter / [facility] Medical T14.8XXA(ICD-10) Center Repository Admitting Local infection of the DAVY MANDUJANO [place] [address] diagnosis skin and subcutaneous University tissue, unspecified / [facility] Medical L08.9(ICD-10) Center Repository Admitting Unspecified cirrhosis of DAVY MANDUJANO [place] [address] diagnosis liver (HCC) / University K74.60(ICD-10) [facility] Repository Admitting Infection following a DAVY MANDUJANO [place] [address] diagnosis procedure, subsequent University encounter / [facility] Medical T81.4XXD(ICD-10) Center Repository Admitting Non-Hodgkin lymphoma, DAVY MANDUJANO [place] [address] diagnosis unspecified, unspecified University site (HCC) / [facility] Medical C85.90(ICD-10) Center Repository Admitting Alcoholic cirrhosis of DAVY MANDUJANO [place] [address] diagnosis liver with ascites (HCC) University / K70.31(ICD-10) [facility] Repository Admitting Alcohol dependence, DAVY MANDUJANO [place] [address] diagnosis uncomplicated (HCC) / University F10.20(ICD-10) [facility] Repository Admitting Chronic kidney disease, DAVY MANDUJANO [facility] [place] diagnosis unspecified / University N18.9(ICD-10) [facility] Repository Admitting Chronic kidney disease, DAVY MANDUJANO [place] [address] diagnosis stage 3 (moderate) / University N18.3(ICD-10) [facility] Repository Admitting Paroxysmal atrial [place] [address] diagnosis fibrillation (HCC) / [place] I48.0(ICD-10) [facility] Repository Admitting Abnormal levels of other [place] [address] diagnosis serum enzymes / [place] R74.8(ICD-10) [facility] Repository Admitting 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 / Center I25.10(ICD-10) Repository Admitting Personal history of DAVY MANDUJANO [place] [address] diagnosis pulmonary embolism / [place] Z86.711(ICD-10) [facility] Repository Admitting Personal history of DAVY MANDUJANO [place] [address] diagnosis other venous thrombosis University and embolism / [facility] Z86.718(ICD-10) Center Repository Unknown 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 without Repository evidence of necrosis / L98.496(ICD-10) Unknown T66.XXXS - Radiation Farooq Cook Active [place] 8 sickness, unspecified, Community sequela / Hospital T66.XXXS(ICD-10) Repository Unknown M79.89 - Other specified Farooq Cook Active [place] 8 soft tissue disorders / Community M79.89(ICD-10) Hospital Repository Unknown M54.5 - Low back pain / Farooq Cook Active [place] 8 M54.5(ICD-10) [facility] Repository Unknown Z85.72 - Personal Farooq Cook Active [place] 8 history of non-Hodgkin Community lymphomas / Hospital Z85.72(ICD-10) Repository Admitting Wound Non-Healing / KENTRELL MANCIA Active [place] [address] diagnosis 582() [facility] Repository Admitting Post Op Visit / 554() MYLESMARIALUISA, Active [place] [address] diagnosis XANDER [facility] Repository PROCEDURES PROCEDURES No Procedure Records FoundRESULTS RESULTS HH, HEMOGLOBIN AND Collected: 05/19/2018 Status: F Source: [place] HEMATOCRIT 11:37 AM [facility] REPOSITORY TYPE CODE TESTS RESULT OUT OF RANGE REFERENCE UNITS LAB L100.1300 13.0-16.5 g/dl Low HGB 9.3 LAB L100.1400 40-54 % Low HCT 29.6 Performed By: #### L100.0600 #### [facility] [address] [place], [place] [address], [address] RENAL PROFILE Collected: 05/19/2018 Status: F Source: HAN 11:37 AM [facility] REPOSITORY TYPE CODE TESTS RESULT OUT OF RANGE REFERENCE UNITS LAB L501.0100 74-106 mg/dL Normal GLU 93 Result Comment: Please note revised GLUCOSE reference range effective 2017. LAB L501.1000 7-18 mg/dL High BUN 31 LAB L501.1100 0.70-1.30 mg/dL Normal CREAT,SERUM 1.03 Result Comment: The validity of the calculated GFR AND GFRAA in patients over 70 years has not been determined. Clinical correlation is essential. LAB L501.1110 >60 mL/min Normal EST GFR 75 Result Comment: Non- GFR Calc LAB L501.1115 >60 mL/min Normal EST GFR - AA 91 Result Comment: GFR Calc LAB L501.1300 10-20 RATIO High BUN/CRE 30.1 LAB L501.1800 3.2-5.0 g/dL Low ALB 2.9 LAB L501.2200 8.5-10.1 mg/dL Low CA 8.1 LAB L501.2300 2.5-4.9 mg/dL Normal PHOS 2.9 LAB L501.5300 136-145 mmol/L NA Normal 137 LAB L501.5600 3.5-5.1 mmol/L K Normal 4.3 LAB L501.5900 98-107 mmol/L CL Normal 101 LAB L501.6100 21.0-32.0 mmol/L Normal CO2 25.0 Performed By: #### L500.3600, L503.6030, L503.6550 #### [facility] [address]. [place], [place], [address] IRON+IRON BINDING Collected: 05/19/2018 Status: F Source: [facility] 11:37 AM [facility] REPOSITORY TYPE CODE TESTS RESULT OUT OF RANGE REFERENCE UNITS LAB L503.6075 250-450 ug/dL Low TIBC 238 LAB L503.6150 65-175 ug/dL Low IRON 59 LAB L503.6250 15.0-55.0 % IRON Normal SATURATION 24.8 Performed By: #### L500.3600, L503.6030, L503.6550 #### [facility] [address] [facility]. [place], [place], [address] FERRITIN Collected: 05/19/2018 Status: F Source: [place] 11:37 AM [facility] REPOSITORY TYPE CODE TESTS RESULT OUT OF RANGE REFERENCE UNITS LAB L503.6550 26-388 ng/mL Normal FERRITIN 182 Performed By: #### L500.3600, L503.6030, L503.6550 #### [facility] [address] [facility]. [place], [place], [address] CNPN Observed: 05/08/2018 Status: COMPLETED Source: [place] 12:00 AM [facility] REPOSITORY Telephone (PLASMN) CUONG MARSHALL ([id number]) 1945 M Date Time Provider Department 05/08/18 KALPANA SKINNER During your visit today, we recorded the following information about you: Ashly Raúlchristina [facility] 05/08/2018 3:31 PM Signed Sent a package and dr. skinner received it and was to review it and now he is wondering the next steps are please give him a call Luis Rangel, RN, RN 05/09/2018 1:59 PM Signed Spoke with patient's regarding the next steps. Dr. Skinner is still needing to hear back from radiation oncology. Informed that when he did, he would be contacting the patient. expressed understanding and appreciated the call back. Sheyla Pina [facility] 05/16/2018 10:53 AM Signed Patient calling again re: status of the next step would appreciate a call back. See message below. Please call pt at [phone] or pt [phone] Radha Corcoran Psr 05/22/2018 12:12 PM Signed Spouse is calling again. She would like a return phone call today please. [phone] Allergies As of Date: 05/08/2018 Noted Allergy Reaction PREDNISONE 11/08/2016 7 - Swelling Date Reviewed: 04/02/2018 Reviewed by: Jeane Estrada Ma - Fully Assessed Reason for Visit: dr. skinner was to review info (ct scan and records) and get [Other] Prescriptions as of 05/08/2018 Sig: APIXABAN 2.5 MG TABLET Take 2.5 [...] once * Problem List As Of Date 05/08/2018 Noted Resolved SUPPURAT PERITONITIS NEC [567.2] INVALID FOR* [facility] SITE XTRNOD/SOLID ORG [C85.89] INVALID FOR* Foot pain [M79.673] INVALID FOR* Flat foot(734) [M21.40] INVALID FOR* Neuropathy due to chemotherapeutic drug (HCC) [*INVALID FOR* Encounter Status:Closed by LUIS RANGEL on 05/09/18 HH, HEMOGLOBIN AND Collected: 05/05/2018 Status: F Source: [place] HEMATOCRIT 11:12 AM [facility] REPOSITORY TYPE CODE TESTS RESULT OUT OF RANGE REFERENCE UNITS LAB L100.1300 13.0-16.5 g/dl Low HGB 9.5 LAB L100.1400 40-54 % Low HCT 29.9 Performed By: #### L100.0600 #### [facility] [address] [place] [address], [address] CBC W/DIFF, AUTOMATED Collected: 2018 Status: F Source: [place] 1:13 PM [facility] REPOSITORY TYPE CODE TESTS RESULT OUT OF [...] Normal 1+ Performed By: #### L100.0100 #### [facility] [address] [place], [place], [address] RENAL PROFILE Collected: 2018 Status: F Source: [place] 1:13 PM [facility] REPOSITORY TYPE CODE TESTS RESULT OUT OF [...] CO2 28.0 Performed By: #### L500.3600 #### [facility] [address] [place], [address] CBC W/DIFF, AUTOMATED Collected: 04/08/2018 Status: F Source: [place] 12:55 PM [facility] REPOSITORY TYPE CODE TESTS RESULT OUT OF [...] Normal 1+ Performed By: #### L100.0100 #### [facility] [address] [place], [address] RENAL PROFILE Collected: 04/08/2018 Status: F Source: [place] 12:55 PM [facility] REPOSITORY TYPE CODE TESTS RESULT OUT OF [...] CO2 26.0 Performed By: #### L500.3600 #### [facility] [address] [facility] [place], [place], [address] CBC-COMPLETE BLOOD CNT Collected: 04/03/2018 Status: F Source: [place] NO DIFF 12:20 PM [facility] REPOSITORY TYPE CODE TESTS RESULT OUT OF [...] 10.0 Performed By: #### L100.0500, L100.4500 #### [facility] [address] [facility] [facility] [address] [facility] [address] [place], [place], [id number] DIFFERENTIAL COMMENT Collected: 04/03/2018 Status: F Source: [place] 12:20 PM [facility] REPOSITORY TYPE CODE TESTS RESULT OUT OF RANGE REFERENCE UNITS LAB L100.4500 Normal SMEAR COMMENT SCANNED Result Comment: 2+ HYPOCHROMIA 1+ ANISOCYTOSIS Performed By: #### L100.0500, L100.4500 #### [facility] [address] [place], [place], [address] RENAL PROFILE Collected: 04/03/2018 Status: F Source: [place] 12:20 PM [facility] REPOSITORY TYPE CODE TESTS RESULT OUT OF [...] CO2 22.0 Performed By: #### L500.3600 #### [facility] [address] [place], [place], [address] PTHIN Collected: 04/03/2018 Status: F Source: [place] 12:20 PM [facility] REPOSITORY TYPE CODE TESTS RESULT OUT OF RANGE REFERENCE UNITS LAB L509.1000 18.4-80.1 pg/mL High PTHIN 97.1 Performed By: #### L509.1000 #### [facility] [address] [place], [address] VITAMIN D,25 HYDROXY Collected: 04/03/2018 Status: F Source: [place] 12:20 PM [facility] REPOSITORY TYPE CODE TESTS RESULT OUT OF REFERENCE UNITS RANGE LAB L506.1000 29.95-100.01 ng/mL Low Vitamin D 15.7 25-OH Result Comment: Vitamin D 25(OH) Status Range Deficiency <20 ng/mL (50nmol/L) Insuffciency 20 - 30 ng/mL (50 - 75 nmol/L) Sufficiency 30 - 100 ng/mL (75 - 250 nmol/L) Toxicity >100 ng/mL (>250 nmol/L) Performed By: #### L506.1000 #### [facility] [address] [place], [address] CNOV Observed: 04/02/2018 Status: COMPLETED Source: [place] 12:45 PM [facility] REPOSITORY Office Visit (PLASMN) SIMONECUONG MARIE ([id number]) 1945 M Date Time Provider Department 04/02/18 [...] three months. Visits Wound Center weekly in [place]; packs daily. She reports some improvement in [...] out of 10; Fentanyl patch daily and [place] HEENT: Negative for frequent or significant headaches, [...] wound of back, unspecified laterality, initial encounter [S21.209A] Other Visit Diagnosis:Effects of radiation, sequela [T66.XXXS] [...] SUPPURAT PERITONITIS NEC [567.2] INVALID FOR* [facility] SITE XTRNOD/SOLID ORG [C85.89] INVALID FOR* Foot pain [M79.673] INVALID FOR* Flat foot(734) [M21.40] INVALID FOR* Neuropathy due to chemotherapeutic drug (HCC) [*INVALID FOR* Encounter Status:Closed by KALPANA SKINNER MD on 04/04/18 PROGRESS Observed: 04/02/2018 Status: COMPLETED Source: [place] 8:44 AM [facility] REPOSITORY HNO ID: [id number] Author: Kalpana Skinner Service: (none) Author Type: [...] three months. Visits Wound Center weekly in [place]; packs daily. She reports some improvement in [...] out of 10; Fentanyl patch daily and [place] HEENT: Negative for frequent or significant headaches, [...] CARDIOLOGY VISIT Observed: 03/27/2018 Status: F Source: [place] REPORT 10:44 AM [facility] REPOSITORY [place] [facility] [address] [place] [address]. [address] [place] [address] OFFICE VISIT Date of Service: 03/18/18 MR#: [id number] Acct: [id number] Name: CUONG MARSHALL Rep #: [id number] : 1945 Provider: Micky Mauro MD Age/Sex: 72/M Location: [facility] Status: Signed HPI HPI Details: CUONG SIMONE, is a 72 M who presents to [...] [Rx Confirmed 03/14/18] Fentanyl 25 02/28/18 [History] [facility] Medical History Secondary pulmonary arterial hypertension (Chronic) [...] Discontinued: atorvastatin Discontinued Reason: Order edited - Utjfqepdvt02 mg PO QDAY 90 tabs 3RF ing original order Coding Level of Care Code No Charge Coding Level of Care Code No Charge 03/27/18 1044 <Electronically signed by Micky Mauro MD> Date Micky Mauro MD Cosigner Signature: Date (if applicable) CC: Linus Lindquist DO CBC W/DIFF, AUTOMATED Collected: 03/14/2018 Status: F Source: [place] 12:17 PM [facility] REPOSITORY TYPE CODE TESTS RESULT OUT OF [...] Lymph 1.15 Performed By: #### L100.0100 #### [facility] [address] [place], [address] RENAL PROFILE Collected: 03/14/2018 Status: F Source: [place] 12:17 PM [facility] REPOSITORY TYPE CODE TESTS RESULT OUT OF [...] CO2 27.0 Performed By: #### L500.3600 #### [facility] [address] 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 PMH, medications and allergies personally reviewed [...] packing was removed during this exam. NEUROLOGIC: ophthalmic pathologist II-XII are grossly intact. ASSESSMENT/PLAN: (M89.9) Bone [...] oncologic follow up scheduled at this time. (S24.893C) Wound of back, unspecified laterality, initial encounter Assessment: -Very complicated nonhealing lumbar wound with repeated episodes of polymicrobial infection/colonization. -Patient desires second opinion from plastic surgery at [facility]. Plan: -Will see if we can make arrangements for referral. 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 PMH, medications and allergies personally reviewed [...] packing was removed during this exam. NEUROLOGIC: ophthalmic pathologist II-XII are grossly intact. ASSESSMENT/PLAN: (M89.9) Bone [...] desires second opinion from plastic surgery at [facility]. Plan: -Will see if we can make arrangements for referral. Sreedhar Blevins, Referring Provider: LINUS LINDQUIST [[id number]] Allergies As of Date: 03/11/2018 (No Known [...] taking ELIQUIS 5 MG TABLET >> Claire RoKIRBY lynn 03/11/2018 3:34 PM >> CLAIRE SAMANIEGO MA enzo Mar 11, 2018 3:34 PM No longer taking this strength. ALLOPURINOL 100 MG TABLET >> Clairelan Samaniego MA 03/11/2018 3:34 PM >> CLAIRE SAMANIEGO MA Mar 11, 2018 3:34 PM Not taking ATORVASTATIN 10 MG TABLET >> Claire Samaniego MA 03/11/2018 3:35 PM >> CLAIRE SAMANIEGO MA Mar 11, 2018 3:35 PM No longer taking this strength. CYANOCOBALAMIN (VIT B-12) 1,000 MCG TABLET >> Claire Samaniego MA 03/11/2018 3:35 PM >> CLAIRE SAMANIEGO MA enzo Mar 11, 2018 3:35 PM Not taking Problem List As Of Date 03/11/2018 Noted Resolved SUPPURAT PERITONITIS NEC [567.2] INVALID FOR* [facility] SITE XTRNOD/SOLID ORG [C85.89] INVALID FOR* Foot pain [M79.673] INVALID FOR* Flat foot(734) [M21.40] INVALID FOR* Neuropathy due to chemotherapeutic drug (HCC) [*INVALID FOR* Encounter Status:Closed by SREEDHAR BLEVINS DO on 03/13/18 Observed: 03/07/2018 Status: F Source: [place] CULTURE, DEEP WOUND 1:19 PM [facility] REPOSITORY Comments: LOWER LUMBAR Gram Stain Gram [...] <=1 S (NF) indicates non-formulary drug at [facility]. Approval by Infectious Disease Specialist required before non-formulary drugs may be ordered and/or dispensed. Cult, Anaerobic No anaerobic bacteria isolated. Performed By: #### M100.1500 #### [facility] [place], [address] HH, HEMOGLOBIN AND Collected: 02/28/2018 Status: F Source: [place] HEMATOCRIT 10:32 AM [facility] REPOSITORY TYPE CODE TESTS RESULT OUT OF RANGE REFERENCE UNITS LAB L100.1300 13.0-16.5 g/dl Low HGB 9.9 LAB L100.1400 40-54 % Low HCT 32.0 Performed By: #### L100.0600 #### [facility] [place], [address] CBC W/DIFF, AUTOMATED Collected: 02/27/2018 Status: F Source: [place] 1:30 PM [facility] REPOSITORY TYPE CODE TESTS RESULT OUT OF [...] Lymph 1.32 Performed By: #### L100.0100 #### [facility] [address] [place], [place], [address] PSA,TOTAL - ANNUAL Collected: 02/27/2018 Status: F Source: [place] SCREEN 1:30 PM [facility] REPOSITORY TYPE CODE TESTS RESULT OUT OF RANGE REFERENCE UNITS LAB L501.9910 0.00-4.00 ng/mL Normal PSA,TOT 0.42 SCREEN Result Comment: This test was performed using the TPSA assay method for the SPARQ chemistry system. Values obtained with different assay methods cannot be used interchangably. When changing PSA assays in the course of monitoring a patient, additional sequential testing should be carried out to confirm baseline values. Performed By: #### L501.9910 #### [facility] [address] [place], [place], [address] [id number], S Collected: Status: F Source: [place]AN 02/27/2018 1:30 PM [facility] REPOSITORY TYPE CODE TESTS RESULT OUT OF RANGE REFERENCE UNITS LAB L3890.5000 0.6-2.4 mg/L High B2 10.6 [id number] Result Comment: Siemens Immulite 2000 Immunochemiluminometric assay (ICMA) Performed at: - [address] [id number] Mediation Commissioner: Juan Antonio Mancera MD, Phone: [phone] Performed By: #### L3890.5000 #### [facility] (refer to report for specific site) refer to report for address and phone number PROTEIN ELECTROPH, S Collected: 02/27/2018 Status: F Source: [place] 1:30 PM [facility] REPOSITORY TYPE CODE TESTS RESULT OUT OF [...] scan will follow via computer, mail, or purchase request editor delivery. LAB L3100.4340 . Normal NOTE: Comment Result Comment: The SPE pattern appears essentially unremarkable. Evidence of monoclonal protein is not apparent. Performed at: [facility] [address] [id number] Mediation Commissioner: Noah Sy PhD, Phone: [phone] Performed By: #### L3100.3450 #### [facility] (refer to report for specific site) refer to report for address and phone number PROTEIN ELECTRO.UR-RANDOM Collected: Status: F Source: [place]AN 02/27/2018 1:30 PM [facility] REPOSITORY TYPE CODE TESTS RESULT OUT OF RANGE REFERENCE UNITS LAB L3600.4100 Not Estab. mg/dL Normal 14.9 PROTEIN,UR LAB L3600.4200 . % Normal 22.6 ALBUMIN,UR LAB L3600.4300 . % Normal 2.6 KIFQD-8-QPQL ,U LAB L3600.4400 . % Normal 11.7 BIKLL-2-EEWP ,U LAB L3600.4500 . % Normal BETA 27.3 GLOB,U LAB L3600.4600 . % Normal GAMMA 35.9 GLOB,U LAB L3600.4720 Normal M-SPIKE,U Result Comment: Not Observed LAB L3600.4800 . Normal NOTE Comment Result Comment: Protein electrophoresis scan will follow via computer, mail, or purchase request editor delivery. Performed at: [facility] [address] [id number] Mediation Commissioner: Noah Sy PhD, Phone: [phone] Performed By: #### L3600.4000 #### [facility] (refer to report for specific site) refer to report for address and phone number COMPREHENSIVE METABOLIC Collected: 02/24/2018 Status: F Source: [place]AN YEFRI 1:58 PM [facility] REPOSITORY TYPE CODE TESTS RESULT OUT OF [...] GAP 12 Performed By: #### L500.4050 #### [facility] [place], [address] SPINE LUMBAR WITHOUT Observed: 02/24/2018 Status: F Source: [place] CONTRAST 1:19 PM [facility] REPOSITORY [facility] Imaging Services [address] [place] [address] Spine Lumbar without Contrast MR#: [id number] Acct: [id number] Name: CUONG MARSHALL Rep #: [id number] : 1945 M 72 From: Luca Stratton MD PCP: Linus Lindquist DO Status: REG CLI Study: Spine Lumbar without Contrast Date of Exam: 02/24/18 Exam# [id number] Ordering Dr: Monica Wick DO STUDY: CT [...] CC: Monica Wick DO; Linus Lindquist DO [employer]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 Approval by Infectious Disease Specialist required [...] 1 S (NF) indicates non-formulary drug at [facility]. Approval by Infectious Disease Specialist required before non-formulary drugs may be ordered and/or dispensed. * CLSI guidelines does not recommend testing of cephalosporins. This interpretation is deduced from Beta-lactam/penicillin results. Performed By: #### M100.1400 #### [facility] [address] [place], [place], [address] ERYTHROCYTE SED RATE Collected: 02/20/2018 Status: F Source: [place] 12:16 PM [facility] REPOSITORY TYPE CODE TESTS RESULT OUT OF RANGE REFERENCE UNITS LAB L102.0000 0-20 mm/hr High SED RATE 65 Performed By: #### L101.9900 #### [facility] [address] [place], [place], [address] CRP Collected: 02/20/2018 Status: F Source: MAL[place] 12:16 PM [facility] REPOSITORY TYPE CODE TESTS RESULT OUT OF RANGE REFERENCE UNITS LAB L501.6710 0.0-3.0 mg/L High 16.40 C-REACTIVE PROT Result Comment: C-Reactive Protein (CRP) provides useful information for the diagnosis, therapy and monitoring of inflammatory processes and associated diseases. For the evaluation of Relative Risk for Cardiovascular Disease, a High Sensitivity CRP (HSCRP) should be ordered. Performed By: #### L501.6710 #### [facility] [address] [place], [place], [address] Observed: 02/14/2018 Status: F Source: MALOTT CULTURE, DEEP WOUND 12:50 PM [facility] REPOSITORY Gram Stain Gram Stain 3+ Red Blood Cells No White Blood Cells No organisms seen Wound Culture Gram positive briana suggestive of a diptheroid. Clinical correlation necessary, Possible skin contamination. There are no CLSI standards for interpretation of this Drug/Organism combination. ORGANISM 1: Gram positive briana Amount Growth Very Rare Cult, Anaerobic No growth in 5 days. Performed By: #### M100.1500 #### [facility] [place], [address] RENAL PROFILE Collected: 02/14/2018 Status: F Source: HAN 10:14 AM [facility] REPOSITORY TYPE CODE TESTS RESULT OUT OF [...] CO2 26.0 Performed By: #### L500.3600 #### [facility] [address] [place], [place], [address] CBC W/DIFF, AUTOMATED Collected: 02/14/2018 Status: F Source: HAN 10:00 AM [facility] REPOSITORY TYPE CODE TESTS RESULT OUT OF [...] Lymph 1.46 Performed By: #### L100.0100 #### [facility] [address] [place], [place], [address] IRON+IRON BINDING Collected: 02/14/2018 Status: F Source: [place] CAPACITY 10:00 AM [facility] REPOSITORY TYPE CODE TESTS RESULT OUT OF RANGE REFERENCE UNITS LAB L503.6075 250-450 ug/dL Low TIBC 221 LAB L503.6150 65-175 ug/dL IRON Normal 65 LAB L503.6250 15.0-55.0 % IRON Normal SATURATION 29.4 Performed By: #### L503.6030, L503.6550 #### [facility] [address] [place], [address] FERRITIN Collected: 02/14/2018 Status: F Source: [place] 10:00 AM [facility] REPOSITORY TYPE CODE TESTS RESULT OUT OF RANGE REFERENCE UNITS LAB L503.6550 26-388 ng/mL Normal FERRITIN 168 Performed By: #### L503.6030, L503.6550 #### [facility] [address] [place], [address] Observed: 01/31/2018 Status: F Source: [place] CULTURE, DEEP WOUND 12:00 PM [facility] REPOSITORY Gram Stain Gram Stain Very Rare Gram positive rods 4+ Red Blood Cells No White Blood Cells Wound Culture Copy of report sent to Infection Control Printer [id number] 02/03/18 0903 EMILY. RESULTS CALLED TO AYAD 02/03/18 0916 [...] <=0.5 S (NF) indicates non-formulary drug at [facility]. Approval by Infectious Disease Specialist required [...] 80 R (NF) indicates non-formulary drug at [facility]. Approval by Infectious Disease Specialist required before non-formulary drugs may be ordered and/or dispensed. Cult, Anaerobic No anaerobic bacteria isolated. Performed By: #### M100.1500 #### [facility] [address] [place], [address] HH, HEMOGLOBIN AND Collected: 01/31/2018 Status: F Source: [place] HEMATOCRIT 10:01 AM [facility] REPOSITORY TYPE CODE TESTS RESULT OUT OF RANGE REFERENCE UNITS LAB L100.1300 13.0-16.5 g/dl Low HGB 10.4 LAB L100.1400 40-54 % Low HCT 32.7 Performed By: #### L100.0600 #### [facility] [address] [place], [address] Observed: 01/17/2018 Status: F Source: [place] CULTURE, DEEP WOUND 1:10 PM [facility] REPOSITORY Gram Stain Gram Stain 4+ Red [...] 80 R (NF) indicates non-formulary drug at [facility]. Approval by Infectious Disease Specialist required before non-formulary drugs may be ordered and/or dispensed. Cult, Anaerobic No anaerobic bacteria isolated. Performed By: #### M100.1500 #### [facility] [address] [place], [address] CBC W/DIFF, AUTOMATED Collected: 01/17/2018 Status: F Source: MAL[place] 12:11 PM [facility] REPOSITORY TYPE CODE TESTS RESULT OUT OF [...] Lymph 1.37 Performed By: #### L100.0100 #### [facility] [address] [place], [address] RENAL PROFILE Collected: 01/17/2018 Status: F Source: HAN 12:11 PM [facility] REPOSITORY TYPE CODE TESTS RESULT OUT OF [...] CO2 26.0 Performed By: #### L500.3600 #### [facility] [address] [place], [address] Observed: 01/10/2018 Status: F Source: HAN CULTURE, DEEP WOUND 3:00 PM [facility] REPOSITORY Gram Stain Gram Stain No White Blood Cells No organisms seen Wound Culture No growth aerobically. Cult, Anaerobic No growth in 5 days. Performed By: #### M100.1500 #### [facility] [address] [place], [address] HH, HEMOGLOBIN AND Collected: 01/10/2018 Status: F Source: HAN HEMATOCRIT 10:05 AM [facility] REPOSITORY TYPE CODE TESTS RESULT OUT OF RANGE REFERENCE UNITS LAB L100.1300 13.0-16.5 g/dl Low HGB 10.3 LAB L100.1400 40-54 % Low HCT 32.2 Performed By: #### L100.0600 #### [facility] [address] [place], [address] CBC W/DIFF, AUTOMATED Collected: 01/03/2018 Status: F Source: HAN 10:12 AM [facility] REPOSITORY TYPE CODE TESTS RESULT OUT OF [...] Lymph 1.46 Performed By: #### L100.0100 #### [facility] [address] [place], [address] Observed: 12/27/2017 Status: F Source: [place] CULTURE, DEEP WOUND 2:45 PM [facility] REPOSITORY Comments: LUMBAR ULCER. Gram Stain Gram Stain 4+ Red Blood Cells No White Blood Cells No organisms seen Wound Culture #3 There are no CLSI standards for interpretation of this Drug/Organism combination. RESULTS CALLED TO /50 NURSE LINE 12/30/17 0895 Martha Soto. Copy of report sent to Infection Control Printer [id number] 12/30/17 0831 DCANNON. ORGANISM 1: Meth. resistant Staph. aureus [...] 1 S (NF) indicates non-formulary drug at [facility]. Approval by Infectious Disease Specialist required [...] <=1 S (NF) indicates non-formulary drug at [facility]. Approval by Infectious Disease Specialist required before non-formulary drugs may be ordered and/or dispensed. Cult, Anaerobic No anaerobic bacteria isolated. Performed By: #### M100.1500 #### [facility] [address] [place], [place], [address] HH, HEMOGLOBIN AND Collected: 12/27/2017 Status: F Source: [place] HEMATOCRIT 10:20 AM [facility] REPOSITORY TYPE CODE TESTS RESULT OUT OF RANGE REFERENCE UNITS LAB L100.1300 13.0-16.5 g/dl Low HGB 9.7 LAB L100.1400 40-54 % Low HCT 29.4 Performed By: #### L100.0600 #### [facility] [address] [place], [address] RENAL PROFILE Collected: 12/27/2017 Status: F Source: HAN 10:20 AM [facility] REPOSITORY TYPE CODE TESTS RESULT OUT OF [...] CO2 23.0 Performed By: #### L500.3600 #### [facility] [address] [place], [address] Observed: 12/13/2017 Status: F Source: [place] CULTURE, DEEP WOUND 2:45 PM [facility] REPOSITORY Comments: LOWER LUMBAR ULCER Gram Stain Gram Stain 2+ Red Blood Cells No White Blood Cells No organisms seen Wound Culture Copy of report sent to Infection Control Printer [id number] 12/15/17 6002 GURVINDERLEYDI. RESULTS CALLED LEFT MESSAGE 12/15/17 2109 Rubia Contreras. ORGANISM 1: Meth. resistant Staph. [...] 1 S (NF) indicates non-formulary drug at [facility]. Approval by Infectious Disease Specialist required before non-formulary drugs may be ordered and/or dispensed. * CLSI guidelines does not recommend testing of cephalosporins. This interpretation is deduced from Beta-lactam/penicillin results. Cult, Anaerobic No anaerobic bacteria isolated. Performed By: #### M100.1500 #### [facility] [address] [place], [address] CBC W/DIFF, AUTOMATED Collected: 12/13/2017 Status: F Source: HAN 10:12 AM [facility] REPOSITORY TYPE CODE TESTS RESULT OUT OF [...] Lymph 1.77 Performed By: #### L100.0100 #### [facility] [address] [place], [address] ECHOCARDIOGRAM COMPLETE Observed: 12/02/2017 Status: F Source: [place] 3:16 PM [facility] REPOSITORY [facility] Cardiovascular Services [address] [place] [address] Echo Complete 11/27/17 1351 MR#: [id number] Acct: [id number] Name: CUONG MARSHALL Rep #: [id number] : 1945 72 From: Micky Mauro MD Attending Dr: Zunilda HAYES,Micky Status: REG CLI Ordering Dr: Micky Mauro MD Date: 11/27/17 Location: [facility] Sex: M C Admitted: Reason For [...] Referring Physician: Micky Mauro Performed By: Nicholas Ashton, RCS 12/02/17 1515 Date Micky Mauro MD CC: Micky Mauro MD; Linus Lindquist Date Dictated: 11/27/17 1351 Date Transcribed: 12/02/17 1516 [employer] 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 HH, HEMOGLOBIN AND Collected: 11/29/2017 Status: F Source: HAN HEMATOCRIT 9:49 AM [facility] REPOSITORY TYPE CODE TESTS RESULT OUT OF RANGE REFERENCE UNITS LAB L100.1300 13.0-16.5 g/dl Low HGB 8.8 LAB L100.1400 40-54 % Low HCT 28.3 Performed By: #### L100.0600 #### [facility] [address], [address] RENAL PROFILE Collected: 11/29/2017 Status: F Source: HAN 9:49 AM [facility] REPOSITORY TYPE CODE TESTS RESULT OUT OF [...] Performed By: #### L500.3600, L503.6030, L503.6550 #### [facility] [address] [place], [address] IRON+IRON BINDING Collected: 11/29/2017 Status: F Source: HAN [facility] 9:49 AM [facility] REPOSITORY TYPE CODE TESTS RESULT OUT OF RANGE REFERENCE UNITS LAB L503.6075 250-450 ug/dL Low TIBC 235 LAB L503.6150 65-175 ug/dL IRON Normal 124 LAB L503.6250 15.0-55.0 % IRON Normal SATURATION 52.8 Performed By: #### L500.3600, L503.6030, L503.6550 #### [facility] [address] [place], [address] FERRITIN Collected: 11/29/2017 Status: F Source: HAN 9:49 AM [facility] REPOSITORY TYPE CODE TESTS RESULT OUT OF RANGE REFERENCE UNITS LAB L503.6550 26-388 ng/mL Normal FERRITIN 184 Performed By: #### L500.3600, L503.6030, L503.6550 #### [facility] [address] [place], [address] Observed: 11/28/2017 Status: F Source: [facility] CULTURE -E 11:43 AM [facility] REPOSITORY SOURCE: WOUND: Lumbar COMMENT: eSwab transport medium sent MICROSCOPIC: See Routine Culture RESULT: NO ANAEROBIC GROWTH REPORT STATUS: 12/04/2017 FINAL Performed By: #### JESS #### [address] [address] Blood Cultures processed at: [facility] BACT CULTURE/DIR Observed: Status: F Source: [place] SMEAR,LESION,TISSUE,DEVICE-UHE 11/28/2017 11:41 [facility] REPOSITORY SOURCE: WOUND: Lumbar COMMENT: eSwab transport medium sent MICROSCOPIC: Neutrophils, None Red Blood Cells Present GRAM NEGATIVE BACILLI QUANTITATION: Total Microbial Growth, Moderate RESULT: PSEUDOMONAS AERUGINOSA :Identification by MALDI-TOF mass spectrometer. ---> RVW (NOTE) Identification was performed on the MALDI-TOF mass spectrometer [employer]. This test was developed and its performance characteristics determined by The [facility] at [facility]. It has not been cleared or approved [...] <=1 F Performed By: #### GEN #### [address] [address] Blood Cultures processed at: [facility] Observed: 11/27/2017 Status: F Source: HAN CULTURE, DEEP WOUND 1:04 PM [facility] REPOSITORY Comments: LUMBAR ULCER. Gram Stain Gram [...] <=1 S (NF) indicates non-formulary drug at [facility]. Approval by Infectious Disease Specialist required before non-formulary drugs may be ordered and/or dispensed. Cult, Anaerobic No growth in 5 days. Performed By: #### M100.1500 #### [facility] [address] [place], [address] CARDIOLOGY VISIT Observed: 11/21/2017 Status: F Source: [place] REPORT 4:11 PM [facility] REPOSITORY [facility] [address] [place] [address] OFFICE VISIT Date of Service: 11/19/17 MR#: [id number] Acct: [id number] Name: CUONG MARSHALL Rep #: [id number] : 1945 Provider: Micky Mauro MD Age/Sex: 72/M Location: [facility] Status: Signed HPI HPI Details: CUONG MARSHALL, [...] Orders: Plan Detail Follow Up 4 Months (hand turner) Coding Level of Care Code Off vis,est,level 3 Coding Level of Care Code Off vis,est,level 3 11/21/17 1611 <Electronically signed by Micky Mauro MD> Date Micky Mauro MD Cosigner Signature: Date (if applicable) CC: Linus Lindquist DO CARDIOLOGY VISIT Observed: 11/19/2017 Status: F Source: [place] REPORT 4:33 PM [facility] REPOSITORY [facility] [address] [place] [address] OFFICE VISIT Date of Service: 11/19/17 MR#: [id number] Acct: [id number] Name: CUONG MARSHALL Rep #: [id number] : 1945 Provider: Micky Mauro MD Age/Sex: 72/M Location: [facility] Status: Signed HPI [facility] Chief Complaint: Follow up Details: CUONG MARSHALL, [...] brachial Intake Visit Reasons: 3 M FU Frame Repairer Required: No Is patient in pain?: No [...] Other Orders Orders: Follow Up 4 Months (hand turner) Coding Level of Care Code Off vis,est,level [...] Linus PinaLexa Observed: 11/15/2017 Status: F Source: [place] CULTURE, DEEP WOUND 2:15 PM [facility] REPOSITORY Comments: LUMBAR ULCER Gram Stain Gram [...] <=1 S (NF) indicates non-formulary drug at [facility]. Approval by Infectious Disease Specialist required before non-formulary drugs may be ordered and/or dispensed. Pseudomonas aeroginosa: REACTION Cefepime $ 8 S Ceftazidime *NF 2 S Ciprofloxacin $ 2 I Gentamicin $ <=1 S Imipenem *NF <=0.25 S Levofloxacin $ >=8 R Tobramycin $ <=1 S (NF) indicates non-formulary drug at [facility]. Approval by Infectious Disease Specialist required before non-formulary drugs may be ordered and/or dispensed. Cult, Anaerobic No anaerobic bacteria isolated. Performed By: #### M100.1500 #### [facility] [address] [place], [address] HH, HEMOGLOBIN AND Collected: 11/15/2017 Status: F Source: [place] HEMATOCRIT 10:21 AM [facility] REPOSITORY TYPE CODE TESTS RESULT OUT OF RANGE REFERENCE UNITS LAB L100.1300 13.0-16.5 g/dl Low HGB 9.5 LAB L100.1400 40-54 % Low HCT 29.4 Performed By: #### L100.0600 #### [facility] [address] [place], [address] Observed: 11/01/2017 Status: F Source: [place] CULTURE, DEEP WOUND 2:10 PM [facility] REPOSITORY Comments: LUMBAR SPINE Gram Stain Gram Stain 2+ White Blood Cells 3+ Red Blood Cells Rare Gram positive cocci Rare Gram negative rods Wound Culture RESULTS CALLED TO SARA 11/04/17 0839 Jazz Schwarz. REPORT READ BACK BY SAME. Copy of report sent to Infection Control Printer [id number] 11/04/17 0842 BENJAMÍNSowmyaJUAN CARLOS. ORGANISM 1: Pseudomonas aeroginosa Amount Growth 1+ ORGANISM 2: Meth. resistant Staph. aureus Amount Growth Rare Pseudomonas aeroginosa: REACTION Cefepime $ 8 S Ceftazidime *NF <=1 S Ciprofloxacin $ 2 I Gentamicin $ <=1 S Imipenem *NF <=0.25 S Levofloxacin $ 4 I Piperacillin/Tazobactam $$ <=4 S Tobramycin $ <=1 S (NF) indicates non-formulary drug at [facility]. Approval by Infectious Disease Specialist required [...] 1 S (NF) indicates non-formulary drug at [facility]. Approval by Infectious Disease Specialist required before non-formulary drugs may be ordered and/or dispensed. * CLSI guidelines does not recommend testing of cephalosporins. This interpretation is deduced from Beta-lactam/penicillin results. Cult, Anaerobic No anaerobic bacteria isolated. Performed By: #### M100.1500 #### [facility] [address] [place], [place], [address] CBC W/DIFF, AUTOMATED Collected: 11/01/2017 Status: F Source: HAN 9:58 AM [facility] REPOSITORY TYPE CODE TESTS RESULT OUT OF [...] Lymph 1.53 Performed By: #### L100.0100 #### [facility] [address] [place], [address] RENAL PROFILE Collected: 11/01/2017 Status: F Source: [place] 9:58 AM [facility] REPOSITORY TYPE CODE TESTS RESULT OUT OF [...] CO2 25.0 Performed By: #### L500.3600 #### [facility] [address] [facility] [place], [address] WOUND CTR HISTORY Observed: 10/28/2017 Status: F Source: HAN AND PHYSICAL 12:45 PM [facility] REPOSITORY [facility] [address] [facility] [place] [address] Wound Ctr History AND Physical 10/28/17 1233 MR#: [id number] Acct: [id number] Name: CUONG MARSHALL Rep #: [id number] : 1945 72 From: Memo Nguyễn MD PCP: Linus Lindquist DO Status: REG RCR Y Location: (1) History of non-Hodgkin's lymphoma Status: Chronic [...] 03/04/[address] Davila at [facility] in [place] and was discharged with a wound vac [...] Recorded Date Recorded By Document 10/25/17 12:34 DL [id number] 10/25/17 12:46 DL Wound Center Nurse 1 [Ulcer Assessment] #9 Lower Lumbar- Midline -Current Size (cm) - Length 13.8 WC - Nurse 2 - General Ulcer CM Notes Start: 10/18/17 12:38 Freq: Status: Active Protocol: Activity Type Activity Date Activity User E-Sign Co-Sign Detail Recorded Client Recorded Date Recorded By Document 10/25/17 13:17 [id number] 10/25/17 13:46 JS Wound Center Nurse 2 [...] will continue. This note was generated with adFreeq dictation software. It may contain incorrect words, spelling, and punctuation that were not noted in checking the note before signing. 10/28/17 8855 <Electronically signed by Memo Nguyễn MD> Date Memo Nguyễn MD CC: Signed Observed: 10/18/2017 Status: F Source: [place] CULTURE, DEEP WOUND 1:20 PM [facility] REPOSITORY Copy of report sent to Infection [...] <=0.5 S (NF) indicates non-formulary drug at [facility]. Approval by Infectious Disease Specialist required before non-formulary drugs may be ordered and/or dispensed. * CLSI guidelines does not recommend testing of cephalosporins. This interpretation is deduced from Beta-lactam/penicillin results. Cult, Anaerobic No anaerobic bacteria isolated. Performed By: #### M100.1500 #### [facility] [address] [place], [address] CBC W/DIFF, AUTOMATED Collected: 10/16/2017 Status: F Source: [place] 11:04 AM [facility] REPOSITORY TYPE CODE TESTS RESULT OUT OF [...] Lymph 1.28 Performed By: #### L100.0100 #### [facility] [address] [place] [address]. [place], [address] Observed: 10/02/2017 Status: F Source: [place] CULTURE, DEEP WOUND 9:30 AM [facility] REPOSITORY Comments: LUMBAR ULCER. Gram Stain Gram [...] <=0.5 S (NF) indicates non-formulary drug at [facility]. Approval by Infectious Disease Specialist required before non-formulary drugs may be ordered and/or dispensed. * CLSI guidelines does not recommend testing of cephalosporins. This interpretation is deduced from Beta-lactam/penicillin results. Burkholderia cepacia: REACTION Aztreonam $$$ 23 S Burkholderia cepacia: REACTION Amikacin $ 8 R Aztreonam $$$ 16 I Meropenem $ 4 S (NF) indicates non-formulary drug at [facility]. Approval by Infectious Disease Specialist required before non-formulary drugs may be ordered and/or dispensed. Burkholderia cepacia: REACTION Ceftazidime *NF 16 I Ceftriaxone $ >=64 R Ciprofloxacin $ 0.5 S Gentamicin $ 2 S Imipenem *NF >=16 R Levofloxacin $ 1 S Piperacillin/Tazobactam $$ >=128 R Tobramycin $ <=1 S Trimethoprim/Sulfametho $ 80 R (NF) indicates non-formulary drug at [facility]. Approval by Infectious Disease Specialist required before non-formulary drugs may be ordered and/or dispensed. Cult, Anaerobic No anaerobic bacteria isolated. Performed By: #### M100.1500 #### [facility] [address] [place], [place], [address] HH, HEMOGLOBIN AND Collected: 10/01/2017 Status: F Source: [place] HEMATOCRIT 10:35 AM [facility] REPOSITORY TYPE CODE TESTS RESULT OUT OF RANGE REFERENCE UNITS LAB L100.1300 13.0-16.5 g/dl Low HGB 9.7 LAB L100.1400 40-54 % Low HCT 30.5 Performed By: #### L100.0600 #### [facility] [address] [place], [place], [address] RENAL PROFILE Collected: 10/01/2017 Status: F Source: HAN 10:35 AM [facility] REPOSITORY TYPE CODE TESTS RESULT OUT OF [...] CO2 28.0 Performed By: #### L500.3600 #### [facility] [address] [place], [place], [address] Observed: 09/18/2017 Status: F Source: HAN CULTURE, DEEP WOUND 1:40 PM [facility] REPOSITORY Comments: LOWER SPINE WOUND Gram Stain Gram Stain No White Blood Cells No organisms seen Wound Culture There are no CLSI standards for interpretation of this Drug/Organism combination. ORGANISM 1: Corynebacterium striatum Amount Growth 2+ Cult, Anaerobic No anaerobic bacteria isolated. Performed By: #### M100.1500 #### [facility] [address] [facility] [place], [address] CBC W/DIFF, AUTOMATED Collected: 09/17/2017 Status: F Source: HAN 10:43 AM [facility] REPOSITORY TYPE CODE TESTS RESULT OUT OF [...] Lymph 1.23 Performed By: #### L100.0100 #### [facility] [address] [place], [address] HH, HEMOGLOBIN AND Collected: 09/03/2017 Status: F Source: HAN HEMATOCRIT 11:10 AM [facility] REPOSITORY Order Comment: Has pt arrived? Y TYPE CODE TESTS RESULT OUT OF RANGE REFERENCE UNITS LAB L100.1300 13.0-16.5 g/dl Low HGB 8.5 LAB L100.1400 40-54 % Low HCT 26.9 Performed By: #### L100.0600, L500.3600, L503.6030, L503.6550 #### [facility] [address] [place], [place], [id number] RENAL PROFILE Collected: 09/03/2017 Status: F Source: [place] 11:10 AM [facility] REPOSITORY TYPE CODE TESTS RESULT OUT OF [...] By: #### L100.0600, L500.3600, L503.6030, L503.6550 #### [facility] [address] [place], [place], [id number] IRON+IRON BINDING Collected: 09/03/2017 Status: F Source: [place] CAPACITY 11:10 AM [facility] REPOSITORY TYPE CODE TESTS RESULT OUT OF RANGE REFERENCE UNITS LAB L503.6075 250-450 ug/dL Low TIBC 232 LAB L503.6150 65-175 ug/dL Low IRON 63 LAB L503.6250 15.0-55.0 % IRON Normal SATURATION 27.2 Performed By: #### L100.0600, L500.3600, L503.6030, L503.6550 #### [facility] [address] [place], [address] FERRITIN Collected: 09/03/2017 Status: F Source: [place] 11:10 AM [facility] REPOSITORY TYPE CODE TESTS RESULT OUT OF RANGE REFERENCE UNITS LAB L503.6550 26-388 ng/mL Normal FERRITIN 233 Performed By: #### L100.0600, L500.3600, L503.6030, L503.6550 #### [facility] [address] [place], [address] Observed: 08/30/2017 Status: F Source: [place] CULTURE, WOUND 12:04 PM [facility] REPOSITORY Gram Stain Gram Stain 2+ Gram [...] <=1 S (NF) indicates non-formulary drug at [facility]. Approval by Infectious Disease Specialist required [...] <=0.5 S (NF) indicates non-formulary drug at [facility]. Approval by Infectious Disease Specialist required before non-formulary drugs may be ordered and/or dispensed. * CLSI guidelines does not recommend testing of cephalosporins. This interpretation is deduced from Beta-lactam/penicillin results. Performed By: #### M100.1400 #### [facility] [address] [place], [address] CARDIOLOGY VISIT Observed: 08/27/2017 Status: F Source: [place] REPORT 11:21 AM [facility] REPOSITORY [facility] [address] [place] [address] OFFICE VISIT Date of Service: 08/27/17 MR#: [id number] Acct: [id number] Name: CUONG MARSHALL Rep #: [id number] : 1945 Provider: Micky Mauro MD Age/Sex: 72/M Location: [facility] Status: Signed HPI HPI Chief Complaint: Follow-up posthospitalization visit. Details: CUONG MARSHALL, is a 72 M who presents to the office today for a follow-up visit. He is a gentleman with a complicated history with a cardiac component being paroxysmal atrial fibrillation history of congestive heart failure hypertension hyperlipidemia and pulmonary emboli. He was recently discharged from the [facility]. As you know he has had a history significant for non-Hodgkin's lymphoma as well with bony metastases status post chemotherapy and radiation therapy to L4-L5. Is also subsequent laminectomy and has had repeated surgeries for nonhealing wound. He recently was discharged after having been diagnosed with a spinal epidural abscess and L4-L5 laminectomy with chronic osteomyelitis. While he was at [facility] he had undergone an echocardiogram which demonstrated [...] DAILY #90 tab 08/27/17 [Rx Confirmed 08/27/17] [facility] Medical History Pulmonary hypertension (Chronic) Ascending aorta [...] longer taking NESS Follow Up 3 Months (hand turner) Coding Level of Care Code Off vis,est,level [...] 08/20/2017 Status: F Source: [place] 10:50 AM [facility] REPOSITORY TYPE CODE TESTS RESULT OUT OF [...] Lymph 1.47 Performed By: #### L100.0100 #### [facility] [address] [facility] [place], [address] WOUND CTR HISTORY Observed: 08/09/2017 Status: F Source: [place] AND PHYSICAL 1:12 PM [facility] REPOSITORY [facility] [address] [place] [address] Wound Ctr History AND Physical 08/07/172217 MR#: [id number] Acct: [id number] Name: CUONG MARSHALL Rep #: [id number] : 1945 72 From: Garrick Hills MD [...] 03/04/[address] Davila at [facility] in [place] and was discharged with a wound vac [...] Recorded Date Recorded By Document 08/07/17 11:35 [facility] [id number] 08/07/17 11:44 [facility] Wound Center Nurse 1 - Nurse 2 - General Ulcer CM Notes Start: 08/07/17 11:33 Freq: Status: Active Protocol: Activity Type Activity Date Activity User E-Sign Co-Sign Detail Recorded Client Recorded Date Recorded By Document 08/07/17 12:36 DV [id number] 08/07/17 12:43 DV Musculoskeletal: No Muscle Wasting Neurological: Cranial nerves II-XII grossly intact Psych/Mental Status: Normal Affect Debridement Note Post-Debridement Measurements/Treatment - Nurse 2 - General Ulcer CM Notes Start: 08/07/17 11:33 Freq: Status: Active Protocol: Activity Type Activity Date Activity User E-Sign Co-Sign Detail Recorded Client Recorded Date Recorded By Document 08/07/17 12:36 DV [id number] 08/07/17 12:43 DV Wound Center Nurse 2 [...] diet. Follow up in 2 weeks with wv. 08/09/17 1312 <Electronically signed by Garrick Hills MD> Date Garrick Hills MD CC: Signed HH, HEMOGLOBIN AND Collected: 08/06/2017 Status: F Source: [place] HEMATOCRIT 11:25 AM [facility] REPOSITORY TYPE CODE TESTS RESULT OUT OF RANGE REFERENCE UNITS LAB L100.1300 13.0-16.5 g/dl Low HGB 9.0 LAB L100.1400 40-54 % Low HCT 28.4 Performed By: #### L100.0600, L500.3600 #### [facility] [address] [place], [address] RENAL PROFILE Collected: 08/06/2017 Status: F Source: [place] 11:25 AM [facility] REPOSITORY TYPE CODE TESTS RESULT OUT OF [...] 28.0 Performed By: #### L100.0600, L500.3600 #### [facility] [address] [facility]. [place], [place], [address] Observed: 08/02/2017 Status: F Source: [place] CULTURE, DEEP WOUND 2:10 PM [facility] REPOSITORY Comments: LUMBAR SPINE ULCER. Gram Stain Gram Stain 4+ Red Blood Cells Very Rare Gram positive cocci No White Blood Cells Wound Culture RESULTS CALLED TO WOUND CENTER NURSE LINE 08/07/17 Shaniqua Schwarz. Copy of report sent to Infection Control Printer [id number] 08/07/17 0473 EMILY. ORGANISM 1: Presumptive C albicans Amount Growth 2+ ORGANISM 2: Vancomycin Resist. E. faecium Amount Growth 2+ Vancomycin Resist. E. faecium: REACTION Ampicillin $ >=32 R Benzylpenicillin NF >=64 R Gentamicin SYN-S S Linezolid $$$$ 2 S Tigecycline $$$$ <=0.12 S Streptomycin $ SYN-S S Vancomycin $ >=32 R (NF) indicates non-formulary drug at [facility]. Approval by Infectious Disease Specialist required before non-formulary drugs may be ordered and/or dispensed. * CLSI guidelines does not recommend testing of cephalosporins. This interpretation is deduced from Beta-lactam/penicillin results. Cult, Anaerobic No anaerobic bacteria isolated. Performed By: #### M100.1500 #### [facility] [address] [facility]. [place], [place], [id number] CBC-COMPLETE BLOOD CNT Collected: 07/30/2017 Status: F Source: [place] NO DIFF 1:00 PM [facility] REPOSITORY TYPE CODE TESTS RESULT OUT OF [...] 9.7 Performed By: #### L100.0500, L101.9900 #### [facility] [address] [facility] [address] [place], [place], [address] ERYTHROCYTE SED RATE Collected: 07/30/2017 Status: F Source: [place] 1:00 PM [facility] REPOSITORY TYPE CODE TESTS RESULT OUT OF RANGE REFERENCE UNITS LAB L102.0000 0-20 mm/hr High SED RATE 83 Performed By: #### L100.0500, L101.9900 #### [facility] [address] [place], [address] BASIC METABOLIC Collected: 07/30/2017 Status: F Source: [place] PROFILE (BMP) 1:00 PM [facility] REPOSITORY TYPE CODE TESTS RESULT OUT OF [...] GAP 10 Performed By: #### L500.2500 #### [facility] [address] [place], [address] VANCOMYCIN, TROUGH Collected: 07/30/2017 Status: F Source: [place] LEVEL 1:00 PM [facility] REPOSITORY Order Comment: Time Medication is to [...] (Ventilator/Healtcare Associated) -Sepsis PLEASE CONTACT PHARMACY SERVICES (#[id number]) FOR INTERPRETATION OF RESULTS. Performed By: #### L501.8820 #### [facility] [address] [place], [place], [address] BASIC METABOLIC Collected: 07/30/2017 Status: F Source: [place] PROFILE (BMP) 1:00 PM [facility] REPOSITORY TYPE CODE TESTS RESULT OUT OF [...] GAP 10 Performed By: #### L500.2500 #### [facility] [address] [place], [address] CBC-COMPLETE BLOOD CNT Collected: 07/30/2017 Status: F Source: [place] NO DIFF 1:00 PM [facility] REPOSITORY TYPE CODE TESTS RESULT OUT OF [...] MPV 9.7 Performed By: #### L100.0500 #### [facility] [address] [place], [address] ERYTHROCYTE SED RATE Collected: 07/30/2017 Status: F Source: [place] 1:00 PM [facility] REPOSITORY TYPE CODE TESTS RESULT OUT OF RANGE REFERENCE UNITS LAB L102.0000 0-20 mm/hr High SED RATE 83 Performed By: #### L101.9900 #### [facility] [address] [place], [address] VANCOMYCIN, TROUGH Collected: 07/30/2017 Status: F Source: [place] LEVEL 1:00 PM [facility] REPOSITORY Order Comment: Time Medication is to [...] (Ventilator/Healtcare Associated) -Sepsis PLEASE CONTACT PHARMACY SERVICES (#[id number]) FOR INTERPRETATION OF RESULTS. Performed By: #### L501.8820 #### [facility] [address] [place], [address] EMERGENCY DEPARTMENT Observed: 07/25/2017 Status: F Source: [place] SUMMARY 12:00 AM [facility] REPOSITORY [facility] Medical Records Department [address] [place] [address] Emergency Department Summary 07/24/17 1853 MR#: [id number] Acct: [id number] Name: CUONG MARSHALL Rep #: [id number] : 1945 72 From: Andi Arnett DO [...] Wound bleeding This note was generated with adFreeq dictation software. It may contain incorrect words, spelling, and punctuation that were not noted in review of the chart prior to signing ED Disposition - Plan for ED Patient: Chief Complaint: Wound Check Instructions: ED Wound Check Post Op Bleeding Referrals: Linus Lindquist DO [Primary Care Provider] - Monica Wick DO [STAFF PHYSICIAN] - ( SCHEDULED) What to do if you have Problems For any increased pain, shortness of breath, bleeding, nausea or vomiting, chest pain, or any unexpected problems, contact your Primary Care Provider. Call [facility] ([phone]) or report to the closest Emergency Room. Call 911 if necessary. 07/25/17 0000 <Electronically signed by Andi Arnett DO> Date Andi Arnett DO Cosigner Signature (If Indicated): Date CC: Linus Lindquist DO SPINE LUMBAR Observed: 07/24/2017 Status: F Source: [place] (ROUTINE) 12:45 PM [facility] REPOSITORY [facility] Imaging Services [address] [place] [address] Spine Lumbar (Routine) MR#: [id number] Acct: [id number] Name: CUONG MARSHALL Luciana Rep #: [id number] : 1945 M 72 From: Juan Antonio De Leon MD PCP: Linus Lindquist DO Status: REG CLI Study: Spine Lumbar (Routine) Date of Exam: 07/24/17 Exam# [id number] Ordering Dr: Dimas Major MD STUDY: MRI [...] Tel , Service support , CC: Linus Major MD [employer]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, [address] ERYTHROCYTE SED RATE Collected: 07/22/2017 Status: F Source: [place] 4:30 PM [facility] REPOSITORY TYPE CODE TESTS RESULT OUT OF RANGE REFERENCE UNITS LAB L102.0000 0-20 mm/hr High SED RATE 66 Performed By: #### L100.0500, L101.9900 #### [facility] [address] [facility] [place], [address] BASIC METABOLIC Collected: 07/22/2017 Status: F Source: [place] PROFILE (BMP) 4:30 PM [facility] REPOSITORY Order Comment: BLOOD NOT SPUN WITHING [...] GAP 13 Performed By: #### L500.2500 #### [facility] [address] [place], [address] VANCOMYCIN, TROUGH Collected: 07/22/2017 Status: F Source: [place] LEVEL 4:30 PM [facility] REPOSITORY Order Comment: Time Medication is to [...] (Ventilator/Healtcare Associated) -Sepsis PLEASE CONTACT PHARMACY SERVICES (#[id number]) FOR INTERPRETATION OF RESULTS. Performed By: #### L501.8820 #### [facility] [address] [place], [address] WOUND CTR HISTORY Observed: 07/19/2017 Status: F Source: H[place] AND PHYSICAL 6:02 PM [facility] REPOSITORY [facility]aling [facility] [address] [facility] [place] [address] Wound Ctr History AND Physical 07/19/17 1718 MR#: [id number] Acct: [id number] Name: CUONG MARSHALL Rep #: [id number] : 1945 72 From: Monica Wick DO PCP: Lexa PENNLinus Status: REG RCR Y Location: (1) Nonhealing [...] 03/04/[address] Davila at [facility] in [place] and was discharged with a wound vac [...] Date Recorded By Document 07/19/17 13:47 DV [id number] 07/19/17 14:00 DV Wound Center Nurse 1 [Ulcer Assessment] #9 Lower Lumbar- Midline -Combined with other wound No WC - Nurse 2 - General Ulcer CM Notes Start: 07/19/17 10:43 Freq: Status: Active Protocol: Activity Type Activity Date Activity User E-Sign Co-Sign Detail Recorded Client Recorded Date Recorded By Document 07/19/17 14:30 TM [id number] 07/19/17 14:53 Wound Center Nurse 2 Psych/Mental Status: Normal Affect, Appropriate Debridement Note Post-Debridement Measurements/Treatment WC - Nurse 2 - General Ulcer CM Notes Start: 07/19/17 10:43 Freq: Status: Active Protocol: Activity Type Activity Date Activity User E-Sign Co-Sign Detail Recorded Client Recorded Date Recorded By Document 07/19/17 14:30 TM [id number] 07/19/17 14:53 Wound Center Nurse 2 #9 [...] Collected: 07/19/2017 Status: F Source: [place] PROFILE ([facility]) 9:45 AM [facility] REPOSITORY TYPE CODE TESTS RESULT OUT OF [...] GAP 11 Performed By: #### L500.2500 #### [facility] [address] [place], [address] VANCOMYCIN, TROUGH Collected: 07/19/2017 Status: F Source: [place] LEVEL 9:45 AM [facility] REPOSITORY Order Comment: Time Medication is to [...] (Ventilator/Healtcare Associated) -Sepsis PLEASE CONTACT PHARMACY SERVICES (#[id number]) FOR INTERPRETATION OF RESULTS. Performed By: #### L501.8820 #### [facility] [address] [place], [address] EMERGENCY DEPARTMENT Observed: 07/17/2017 Status: F Source: [place] SUMMARY 6:00 PM [facility] REPOSITORY [facility] Medical Records Department [address] [facility] [place] [address] Emergency Department Summary 07/17/17 1130 MR#: [id number] Acct: [id number] Name: CUONG MARSHALL Rep #: [id number] : 1945 72 From: Lucius Nevarez MD [...] by a plastic surgeon and treated at [facility]. 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 He was admitted to [facility] within the last week and discharged. Currently [...] renal insufficiency This note was generated with adFreeq dictation software. It may contain incorrect words, [...] problems, contact your Primary Care Provider. Call [facility] ([phone]) or report to the closest Emergency Room. Call 911 if necessary. 07/17/17 1800 <Electronically signed by Lucius Nevarez MD> Date uLcius Nevarez MD Cosigner Signature (If Indicated): Date CC: Linus Lindquist DO DISCHARGE INSTRUCTION Observed: 07/17/2017 Status: F Source: HAN 6:00 PM [facility] REPOSITORY [facility] Medical Records Department [address] [place] [address] Discharge Instruction 07/17/17 1514 MR#: [id number] Acct: [id number] Name: CUONG MARSHALL Rep #: [id number] : 1945 72 From: Lucius Nevarez MD [...] problems, contact your Primary Care Provider. Call [facility] ([phone]) or report to the closest Emergency Room. Call 911 if necessary. 07/17/17 1800 <Electronically signed by Lucius Nevarez MD> Date Lucius Nevarez MD Cosigner Signature (If Indicated): Date CC: Linus Lindquist DO Observed: 07/17/2017 Status: F Source: H[place] CDIFF (MOLECULAR) 12:07 PM [facility] REPOSITORY Order Date: 07/17/17 Cdiff-Molecular Normal Reference Range = Negative C. Diff DNA Negative- No toxigenic C. Diff DNA Detected NAAT METHOD Testing was performed using nucleic acid amplification Performed By: #### M100.6796 #### [facility] [address] [place], [address] CBC W/DIFF, AUTOMATED Collected: 07/17/2017 Status: C Source: [place] 11:52 AM [facility] REPOSITORY TYPE CODE TESTS RESULT OUT OF [...] September james Performed By: #### L100.0100 #### [facility] [address] [facility]. [place], [place], [address] BASIC METABOLIC Collected: 07/17/2017 Status: F Source: [place] PROFILE (BMP) 11:52 AM [facility] REPOSITORY TYPE CODE TESTS RESULT OUT OF [...] GAP 11 Performed By: #### L500.2500 #### [facility] [address] [facility] [place], [address] CBC-COMPLETE BLOOD CNT Collected: 07/16/2017 Status: F Source: [place] NO DIFF 5:45 PM [facility] REPOSITORY TYPE CODE TESTS RESULT OUT OF [...] 9.0 Performed By: #### L100.0500, L101.9900 #### [facility] [address] [facility] [facility] [place], [place], [address] ERYTHROCYTE SED RATE Collected: 07/16/2017 Status: F Source: H[place] 5:45 PM [facility] REPOSITORY TYPE CODE TESTS RESULT OUT OF RANGE REFERENCE UNITS LAB L102.0000 0-20 mm/hr High SED RATE 95 Performed By: #### L100.0500, L101.9900 #### [facility] [address] [facility] [place], [address] BASIC METABOLIC Collected: 07/16/2017 Status: F Source: [place] PROFILE (BMP) 5:45 PM [facility] REPOSITORY TYPE CODE TESTS RESULT OUT OF [...] GAP 10 Performed By: #### L500.2500 #### [facility] [address] [place], [place], [address] VANCOMYCIN, TROUGH Collected: 07/16/2017 Status: F Source: [place] LEVEL 5:45 PM [facility] REPOSITORY Order Comment: Time Medication is to [...] (Ventilator/Healtcare Associated) -Sepsis PLEASE CONTACT PHARMACY SERVICES (#[id number]) FOR INTERPRETATION OF RESULTS. Performed By: #### L501.8820 #### [facility] [address] [place], [place], [address] BASIC METABOLIC Collected: 07/12/2017 Status: F Source: [place] PROFILE (BMP) 11:00 AM [facility] REPOSITORY Order Comment: Comments: PLEASE DRAW BMP [...] GAP 8 Performed By: #### L500.2500 #### [facility] [address] [facility] [place], [place], [address] VANCOMYCIN, RANDOM Collected: 07/12/2017 Status: F Source: [place] LEVEL 11:00 AM [facility] REPOSITORY TYPE CODE TESTS RESULT OUT OF REFERENCE UNITS RANGE LAB L501.8850 0.0-15.0 ug/mL High VANCO, RANDOM 20.0 Result Comment: VANCOMYCIN STANDARD DRUG THERAPY: CRITICAL VALUE IS > 15.0 mg/L VANCOMYCIN HIGH INTENSITY THERAPY: CRITICAL VALUE IS > 20.0 mg/L PLEASE CONTACT PHARMACY SERVICES (#[id number]) FOR INTERPRETATION OF RESULTS. THIS RESULT DOES NOT REPRESENT A PEAK OR TROUGH LEVEL FOR THIS DRUG. Performed By: #### L501.8850 #### [facility] [address] [facility]. [place], [place], [address] DISCHARGE SUMMARY Observed: 07/12/2017 Status: F Source: [place] 8:20 AM [facility] REPOSITORY [facility] Medical Records Department [address] [place] [address] Discharge Summary 07/12/17817 MR#: [id number] Acct: [id number] Name: CUONG MARSHALL Rep #: [id number] : 1945 72 From: Frank Olmedo MD PCP: Linus Lindquist DO Status: ADM IN Location: [place] [address] Discharge Date and Diagnosis - Problem List [...] H Creatinine 2.31 H Consultations 07/05/17 Consult: Onc/Wound/president practicing urologist Routine Comment: Extensive abscess to lumbar, pres [...] BID 02/05/16 Folic Acid 1 mg PO DAILY@79902/05/16 Magnesium Oxide [Magnesium] 400 mg PO DAILY@79902/05/16 Apixaban [Eliquis] 2.5 mg PO BID 03/16/16 Cholecalciferol (Vitamin D3) [Vitamin D3] 1,000 unit PO DAILY@79910/14/16 Aspirin 81 mg PO DAILY@79907/04/17 Atorvastatin Calcium [Lipitor] 20 mg PO QHS 07/04/17 Cyanocobalamin [Vitamin B12] 1,000 mcg PO DAILY@79907/04/17 Gabapentin [Neurontin] 100 mg PO TIDCM 07/04/17 [...] BID #120 tab 07/12/17 Sodium Chloride 0.65% [[place] Nasal [place]] 2 spray NASAL BID PRN PRN spray.btl [...] Please Follow Up With: Bre Hall When: combo appt w/ Dr Humphrey Please Follow Up With: Xander Humphrey When: gonzález appyenny w/ Bre Hall Please Follow Up With: Micky Mauro MD When: 2 weeks. Please Follow Up With: Mathieu Nolan When: 2 weeks. Please Follow Up With: [facility] Disposition: Home with Home Health Minutes spent on discharge:: 35 Patient Condition:: Poor Meaningful Use Info Meaningful Use Diagnoses (Choose all that apply): None applicable 07/12/17819 <Electronically signed by Frank Olmedo MD> Date Frank Olmedo MD Cosigner Signature (if applicable): Date CC: Linus Lindquist DO; Frank Olmedo MD Signed HOME HEALTH PROGRESS Observed: 07/12/2017 Status: F Source: [place] NOTE 8:20 AM [facility] REPOSITORY [facility] Medical Records Department [address] [place] [address] Home Health Progress Note Vkwl-ee-Psuj Encounter Encounter Date: 07/12/17818 MR#: [id number] Acct: [id number] Name: CUONG MARSHALL Rep #: [id number] : 1945 72 From: Frank Olmedo MD PCP: Linus Lindquist DO Status: ADM IN Location: [place] [address] Home Health Note - Plan Overview of [...] (Acute) - Requirements and Reasons Disciplines Needed/Ordered: Usp, Physical Therapy Reason for Disciplines: Disease Specific [...] Additional Disciplines Additional Disciplines Needed/Ordered: Occupational Therapy 07/12/17819 <Electronically signed by Frank Olmedo MD> Date Frank Olmedo MD Cosigner Signature (if indicated): Date CC: Signed DISCHARGE INSTRUCTION Observed: 07/12/2017 Status: F Source: [place] 8:18 AM [facility] REPOSITORY [facility] Medical Records Department [address] [place] [address] Instructions for Home/Discharge Instructions 07/12/17814 MR#: [id number] Acct: [id number] Name: CUONG MARSHALL Rep #: [id number] : 1945 72 From: Frank Olmedo MD [...] BID #120 tab 07/12/17 Sodium Chloride 0.65% [[place] Nasal [place]] 2 spray NASAL BID PRN PRN spray.btl 07/12/17 The following prescriptions were given: HydromorphONE [Dilaudid] 8 mg PO Q2H PRN #60 tablet PRN Reason: Severe Pain (6-02/12) Melatonin 3 mg PO QHS #30 tab [...] Please Follow Up With: Xander Humphrey When: combanamaria appyenny w/ [facility] Please Follow Up With: Micky Mauro MD When: 2 weeks. Please Follow Up With: Mathieu Nolan When: 2 weeks. Please Follow Up With: [facility] FOR MRI Proposed Discharge Date: 07/12/17 07/12/17817 <Electronically signed by Frank Olmedo MD> Date Frank Olmedo MD CC: Linus Lindquist DO; Dimas Major MD CONSULTATION Observed: 07/11/2017 Status: F Source: HAN 11:29 AM [facility] REPOSITORY [facility] Medical Records Department [address] [place] [address] Consultation 07/11/17 1121 MR#: [id number] Acct: [id number] Name: CUONG MARSHALL Rep #: [id number] : 1945 72 From: Dimas Major MD PCP: Linus Lindquist DO Status: ADM IN Y Location: U [facility]-1 ADDENDUM by Dimas Major MD on 07/11/17 [...] want to have to travel back to [place] for follow-up appts and wants to continue [...] iv abx. Thank you, will follow, d/w rn case management and nursing. Rx written for labs, abx, and MRI. 07/11/17 1128 <Electronically signed by Dimas Major MD> Date Dimas Major MD Cosigner Signature (if applicable): Date CC: Linus Lindquist DO; Dimas Major MD Signed BASIC METABOLIC Collected: 07/11/2017 Status: F Source: HAN PROFILE (BMP) 5:30 AM [facility] REPOSITORY Order Comment: SPECIMEN OBTAINED FROM LINE [...] GAP 7 Performed By: #### L500.2500 #### [facility] [address] [place], [address] VANCOMYCIN, RANDOM Collected: 07/10/2017 Status: F Source: HAN LEVEL 1:55 PM [facility] REPOSITORY TYPE CODE TESTS RESULT OUT OF REFERENCE UNITS RANGE LAB L501.8850 0.0-15.0 ug/mL High VANCO, RANDOM 19.2 Result Comment: VANCOMYCIN STANDARD DRUG THERAPY: CRITICAL VALUE IS > 15.0 mg/L VANCOMYCIN HIGH INTENSITY THERAPY: CRITICAL VALUE IS > 20.0 mg/L PLEASE CONTACT PHARMACY SERVICES (#1473) FOR INTERPRETATION OF RESULTS. THIS RESULT DOES NOT REPRESENT A PEAK OR TROUGH LEVEL FOR THIS DRUG. Performed By: #### L501.8850 #### [facility] [address] [place], [address] CBC W/DIFF, AUTOMATED Collected: 07/08/2017 Status: F Source: MALOTT 12:10 PM [facility] REPOSITORY TYPE CODE TESTS RESULT OUT OF [...] 1.41 Performed By: #### L100.0100, L101.9900 #### [facility] [address] [place], [address] ERYTHROCYTE SED RATE Collected: 07/08/2017 Status: F Source: HAN 12:10 PM [facility] REPOSITORY TYPE CODE TESTS RESULT OUT OF RANGE REFERENCE UNITS LAB L102.0000 0-20 mm/hr High SED RATE 81 Performed By: #### L100.0100, L101.9900 #### [facility] [address] [place], [address] BASIC METABOLIC Collected: 07/08/2017 Status: F Source: [facility] PROFILE (BMP) 12:10 PM [facility] REPOSITORY TYPE CODE TESTS RESULT OUT OF [...] GAP 11 Performed By: #### L500.2500 #### [facility] [address] [facility] [place], [address] VANCOMYCIN, RANDOM Collected: 07/08/2017 Status: F Source: [facility] 12:10 PM [facility] REPOSITORY TYPE CODE TESTS RESULT OUT OF REFERENCE UNITS RANGE LAB L501.8850 0.0-15.0 ug/mL High VANCO, RANDOM 17.1 Result Comment: VANCOMYCIN STANDARD DRUG THERAPY: CRITICAL VALUE IS > 15.0 mg/L VANCOMYCIN HIGH INTENSITY THERAPY: CRITICAL VALUE IS > 20.0 mg/L PLEASE CONTACT PHARMACY SERVICES (#3181) FOR INTERPRETATION OF RESULTS. THIS RESULT DOES NOT REPRESENT A PEAK OR TROUGH LEVEL FOR THIS DRUG. Performed By: #### L501.8850 #### [facility] [address] [facility] [place], [address] LIVER PROFILE Collected: 07/08/2017 Status: F Source: [facility] 12:10 PM [facility] REPOSITORY TYPE CODE TESTS RESULT OUT OF [...] 0.17 Performed By: #### L500.3400, L501.6710 #### [facility] [address] [place], [address] CRP Collected: 07/08/2017 Status: F Source: [facility] 12:10 PM [facility] REPOSITORY TYPE CODE TESTS RESULT OUT OF RANGE REFERENCE UNITS LAB L501.6710 0.0-3.0 mg/L High 53.80 C-REACTIVE PROT Result Comment: C-Reactive Protein (CRP) provides useful information for the diagnosis, therapy and monitoring of inflammatory processes and associated diseases. For the evaluation of Relative Risk for Cardiovascular Disease, a High Sensitivity CRP (HSCRP) should be ordered. Performed By: #### L500.3400, L501.6710 #### [facility] [address] [place], [place], [address] VANCOMYCIN, RANDOM Collected: 07/06/2017 Status: F Source: [facility] 6:18 PM [facility] REPOSITORY TYPE CODE TESTS RESULT OUT OF REFERENCE UNITS RANGE LAB L501.8850 0.0-15.0 ug/mL High VANCO, RANDOM 23.5 Result Comment: VANCOMYCIN STANDARD DRUG THERAPY: CRITICAL VALUE IS > 15.0 mg/L VANCOMYCIN HIGH INTENSITY THERAPY: CRITICAL VALUE IS > 20.0 mg/L PLEASE CONTACT PHARMACY SERVICES (#1582) FOR INTERPRETATION OF RESULTS. THIS RESULT DOES NOT REPRESENT A PEAK OR TROUGH LEVEL FOR THIS DRUG. Performed By: #### L501.8850 #### [facility] [address] [place], [place], [address] VANCOMYCIN, RANDOM Collected: 07/05/2017 Status: F Source: [facility] LEVEL 6:15 PM [facility] REPOSITORY TYPE CODE TESTS RESULT OUT OF REFERENCE UNITS RANGE LAB L501.8850 0.0-15.0 ug/mL High VANCO, RANDOM 26.2 Result Comment: VANCOMYCIN STANDARD DRUG THERAPY: CRITICAL VALUE IS > 15.0 mg/L VANCOMYCIN HIGH INTENSITY THERAPY: CRITICAL VALUE IS > 20.0 mg/L PLEASE CONTACT PHARMACY SERVICES (#7181) FOR INTERPRETATION OF RESULTS. THIS RESULT DOES NOT REPRESENT A PEAK OR TROUGH LEVEL FOR THIS DRUG. Performed By: #### L501.8850 #### [facility] [address] [place], [address] URINALYSIS, COMPLETE Collected: 07/05/2017 Status: F Source: [facility] 5:35 PM [facility] REPOSITORY Order Comment: How was Urine Obtained? [...] YEAST-URINE RARE Performed By: #### L400.0001 #### [facility] [address] [place] [address], [address] Observed: 07/05/2017 Status: F Source: [facility] CULTURE, URINE 5:35 PM [facility] REPOSITORY Urine Culture Culture exhibits no growth. Performed By: #### M100.0650 #### [facility] [address] [place] [address], [address] HISTORY AND PHYSICAL Observed: 07/05/2017 Status: F Source: [facility] EXAM 8:44 AM [facility] REPOSITORY [facility] Medical Records Department [address] [place] [address] History and Physical 07/05/17 0748 MR#: [id number] Acct: [id number] Name: CUONG MARSHALL Rep #: [id number] : 1945 72 From: Frank Olmedo MD PCP: Linus Lindquist DO Status: ADM IN Y Location: [place] [id number] Problem List (1) PSVT (paroxysmal supraventricular tachycardia) [...] with below past medical history presented to [facility] Emergency Department 06/21/2017 not doing well. [...] daily, Senna/colace 2 tablets BID, Dulcolax 10MG [place] daily PRN. * Pneumonia vaccination - Administer [...] F Source: HAN PROFILE (BMP) 6:30 AM [facility] REPOSITORY TYPE CODE TESTS RESULT OUT OF [...] GAP 9 Performed By: #### L500.2500 #### [facility] [address] [place], [place], [id number] CBC W/DIFF, AUTOMATED Collected: 07/05/2017 Status: F Source: [facility] 6:30 AM [facility] REPOSITORY TYPE CODE TESTS RESULT OUT OF [...] Lymph 1.11 Performed By: #### L100.0100 #### [facility] [address] [place], [address] VANCOMYCIN, TROUGH Collected: 07/04/2017 Status: F Source: [facility] 9:56 AM [facility] REPOSITORY TYPE CODE TESTS RESULT OUT OF REFERENCE UNITS RANGE LAB VANCTR 10.0-20.0 mcg/mL High 23.0 Vancomycin, Trough Performed By: #### VANCTR #### [facility] [address] [place] [id number] [place] [address] [place] [address] HEMOGRAM (CBC AND Collected: 07/04/2017 Status: F Source: [facility] PLATELET) 3:54 AM [facility] REPOSITORY TYPE CODE TESTS RESULT OUT OF [...] Performed By: #### HEMOGC, CHM7, MGO #### [facility] [address] [place] [address] [address] [place] [address] CHEM 7 Collected: 07/04/2017 Status: F Source: [facility] 3:54 AM [facility] REPOSITORY TYPE CODE TESTS RESULT OUT OF [...] >60 mL/min/1.73 Low sqM Est GFR,non 31 [place] LAB GFRA >60 mL/min/1.73 Low sqM Est GFR, 38 Performed By: #### HEMJEAN-PIERRE MÉNDEZM7, MGO #### [facility] [address] [place] [address] [place] [address] MAGNESIUM Collected: 07/04/2017 Status: F Source: [facility] 3:54 AM [facility] REPOSITORY TYPE CODE TESTS RESULT OUT OF REFERENCE UNITS RANGE LAB MG 1.6-2.6 mg/dL Magnesium 2.1 Performed By: #### HEMSHAYNA MÉNDEZ, MGO #### [facility] [address] [place] [address] [place] [address] HEMOGRAM (CBC AND Collected: 07/03/2017 Status: F Source: [facility] PLATELET) 2:18 AM [facility] REPOSITORY TYPE CODE TESTS RESULT OUT OF [...] By: #### HEMOGC, CHM7, MGO #### [facility] [address] [place] [address] [facility] [address] [place] [address] CHEM 7 Collected: 07/03/2017 Status: F Source: [facility] 2:18 AM [facility] REPOSITORY TYPE CODE TESTS RESULT OUT OF [...] >60 mL/min/1.73 Low sqM Est GFR,non 32 [place] [facility] GFRA >60 mL/min/1.73 Low sqM Est GFR, 39 Performed By: #### HEMOGC, CHM7, MGO #### [facility] [address] [place] [address] [address] [place] [address] MAGNESIUM Collected: 07/03/2017 Status: F Source: [facility] 2:18 AM [facility] REPOSITORY TYPE CODE TESTS RESULT OUT OF REFERENCE UNITS RANGE LAB MG 1.6-2.6 mg/dL Magnesium 2.0 Performed By: #### HEMOGC, CHM7, MGO #### [facility] [address] [place] [phone] [place] [address] [place] [address] HEMOGRAM (CBC AND Collected: 07/02/2017 Status: F Source: [facility] PLATELET) 3:18 AM [facility] REPOSITORY TYPE CODE TESTS RESULT OUT OF [...] By: #### HEMOGC, CHM7, MGO #### [facility] [address] [place] [phone] [place] [address] [place], [place] [id number] CHEM 7 Collected: 07/02/2017 Status: F Source: [facility] 3:18 AM [facility] REPOSITORY TYPE CODE TESTS RESULT OUT OF [...] >60 mL/min/1.73 Low sqM Est GFR,non 30 [place] LAB GFRA >60 mL/min/1.73 Low sqM Est GFR, 36 Performed By: #### HEMOGC, CHM7, MGO #### [facility] [address] [place] [phone] [place] [address] [place] [address] MAGNESIUM Collected: 07/02/2017 Status: F Source: [facility] 3:18 AM [facility] REPOSITORY TYPE CODE TESTS RESULT OUT OF REFERENCE UNITS RANGE LAB MG 1.6-2.6 mg/dL Magnesium 2.1 Performed By: #### HEMOGC, CHM7, MGO #### [facility] [address] [place] [phone] [place] [address] [place] [address] HEMOGRAM (CBC AND Collected: 07/01/2017 Status: F Source: [facility] PLATELET) 3:33 AM [facility] REPOSITORY TYPE CODE TESTS RESULT OUT OF [...] Performed By: #### HEMOGC, CHM7, MGO #### [facility] [address] [place] [address] CHEM 7 Collected: 07/01/2017 Status: F Source: [facility] 3:33 AM [facility] REPOSITORY TYPE CODE TESTS RESULT OUT OF [...] >60 mL/min/1.73 Low sqM Est GFR,non 32 [place] LAB GFRA >60 mL/min/1.73 Low sqM Est GFR, 38 Performed By: #### HEMOGC, CHM7, MGO #### [facility] [address] [place] [address] [facility] [address] [place] [address] MAGNESIUM Collected: 07/01/2017 Status: F Source: [facility] 3:33 AM [facility] REPOSITORY TYPE CODE TESTS RESULT OUT OF REFERENCE UNITS RANGE LAB MG 1.6-2.6 mg/dL Magnesium 2.1 Performed By: #### HEMOGC, CHM7, MGO #### [facility] [address] [place] [address] [facility] [address] [place] [address] HGB & HCT Collected: 06/30/2017 Status: F Source: [facility] 7:06 AM [facility] REPOSITORY TYPE CODE TESTS RESULT OUT OF REFERENCE UNITS RANGE LAB HGB 13.7-17.5 g/dL Low Hemoglobin 10.4 LAB HCT 40.1-51.0 % Low Hematocrit 31.8 Performed By: #### HH #### [facility] [address] [place] [phone] [place] [address] [place] [address] HEMOGRAM (CBC AND Collected: 06/30/2017 Status: F Source: [facility] PLATELET) 2:59 AM [facility] REPOSITORY TYPE CODE TESTS RESULT OUT OF [...] WBC NUCLEATED RBC 0.0 Performed By: #### YANI, JEAN-PIERREM7, HFP, MGO, HEP3B #### [facility] [address] [address] [facility] [address] [address] CHEM 7 Collected: 06/30/2017 Status: F Source: [facility] 2:59 AM [facility] REPOSITORY TYPE CODE TESTS RESULT OUT OF [...] >60 mL/min/1.73 Low sqM Est GFR,non 30 [place] LAB GFRA >60 mL/min/1.73 Low sqM Est GFR, 37 Performed By: #### YANI, JEAN-PIERREMPamela, HFP, MGO, HEP3B #### [facility] [phone] [place] [address] HEPATIC FUNCTION Collected: 06/30/2017 Status: F Source: [facility] PANEL 2:59 AM [facility] REPOSITORY TYPE CODE TESTS RESULT OUT OF REFERENCE UNITS RANGE LAB ALB 3.5-5.0 g/dL Low Albumin 2.6 LAB BILD <0.3 mg/dL Bilirubin Direct 0.2 LAB BILT <1.5 mg/dL Bilirubin Total 0.5 LAB ALP 32-126 U/L Alkaline High Phosphatase 192 LAB ALT 10-52 U/L ALT 25 LAB AST 14-40 U/L AST 34 LAB TP 6.4-8.3 g/dL Total Protein 6.5 Performed By: #### HEMCINDYC, CHM7, HFP, MGO, HEP3B #### [facility] [address] [place] [address] [facility] [address] [place] [address] MAGNESIUM Collected: 06/30/2017 Status: F Source: [facility] 2:59 AM [facility] REPOSITORY TYPE CODE TESTS RESULT OUT OF REFERENCE UNITS RANGE LAB MG 1.6-2.6 mg/dL Magnesium 2.1 Performed By: #### HEMOGC, CHM7, HFP, MGO, HEP3B #### [facility] [address] [place] [address] [facility] [address] [place], [place] [address] CHRONIC HEPATITIS B Collected: 06/30/2017 Status: F Source: [facility] PACKAGE 2:59 AM [facility] REPOSITORY TYPE CODE TESTS RESULT OUT OF REFERENCE UNITS RANGE LAB HBSAG Negative Hep B Surface Ag Negative LAB HBSAB Hep B Surface Ab Negative LAB HBCBG Negative Hep B Core Ab,Total Negative (IgG+IgM) LAB HCAB Negative Hepatitis C Negative Antibody Performed By: #### HEMOGC, CHM7, HFP, MGO, HEP3B #### [facility] [address] [place] [phone] [place] [address] [place] [address] US ABDOMEN RUQ/LIVER/GB Observed: 06/29/2017 Status: F Source: [facility] 2:04 PM [facility] REPOSITORY EXAM: US ABDOMEN RUQ/LIVER/GB, 06/29/2017 12:17 [...] (CBC AND Collected: 06/29/2017 Status: F Source: [facility]) 6:01 AM [facility] REPOSITORY TYPE CODE TESTS RESULT OUT OF [...] #### HEMOGC, CHM7, HDLT, MGO #### [facility] [phone] [place] [address] [address] CHEM 7 Collected: 06/29/2017 Status: F Source: [facility] 6:01 [facility] REPOSITORY TYPE CODE TESTS RESULT [...] >60 mL/min/1.73 Low sqM Est GFR,non 30 [place] LAB GFRA >60 mL/min/1.73 Low sqM Est GFR, 36 Performed By: #### HEMOGC, CHM7, HDLT, MGO #### [facility] [address] [place] [address] LIPID PROFILE Collected: 06/29/2017 Status: F Source: [facility] 6:01 [facility] REPOSITORY TYPE CODE TESTS RESULT [...] #### HEMOGC, CHM7, HDLT, MGO #### [facility] [address] [place] [address] [place] [address] [place] [address] MAGNESIUM Collected: 06/29/2017 Status: F Source: [facility] 6:01 AM [facility] REPOSITORY TYPE CODE TESTS RESULT OUT OF REFERENCE UNITS RANGE LAB MG 1.6-2.6 mg/dL Magnesium 2.2 Performed By: #### HEMOGC, CHM7, HDLT, MGO #### [facility] [address] [place] [address] [place] [address] VANCOMYCIN, TROUGH Collected: 06/28/2017 Status: F Source: [facility] 11:40 PM [facility] REPOSITORY TYPE CODE TESTS RESULT OUT OF REFERENCE UNITS RANGE LAB VANCTR 10.0-20.0 mcg/mL High 25.0 Vancomycin, Trough Performed By: #### VANCTR #### [facility] [address] [place] [address] [place] [address] CHEST WITHOUT Observed: 06/28/2017 Status: F Source: [facility] CONTRAST 6:39 PM [facility] REPOSITORY EXAM: CT CHEST WITHOUT CONTRAST, 06/28/2017 [...] LUMBOSACRAL AP Observed: 06/28/2017 Status: F Source: [facility] AND LATERAL 9:31 AM [facility] REPOSITORY EXAM: XR SPINE LUMBOSACRAL AP AND [...] this report. Observed: 06/28/2017 Status: F Source: [facility] BLOOD:ROUTINE I 9:08 AM [facility] REPOSITORY SOURCE: BLOOD, PERIPHERAL: Site not specified RESULT: NO GROWTH DAY 5 OF 5 REPORT STATUS: 07/03/2017 FINAL Performed By: #### LENNIE #### [address] [address] Blood Cultures processed at: [facility] Observed: 06/28/2017 Status: F Source: [facility] BLOOD: LINE ASSESSMENT 9:08 AM [facility] REPOSITORY SOURCE: VASCULAR CATHETER BLOOD: RESULT: NO GROWTH DAY 5 OF 5 REPORT STATUS: 07/03/2017 FINAL Performed By: #### LINE #### [address] [address] Blood Cultures processed at: [facility] MRI SPINE LUMBAR WITH Observed: 06/28/2017 Status: F Source: [facility] AND WITHOUT CONTRAST 9:01 AM [facility] REPOSITORY EXAM: MRI SPINE LUMBAR WITH AND [...] (CBC AND Collected: 06/28/2017 Status: F Source: [facility] PLATELET) 5:55 AM [facility] REPOSITORY TYPE CODE TESTS RESULT OUT OF [...] Performed By: #### HEMOGC, CHM7, MGO #### [facility] [address] [place] [phone] [place] [address] [address] [place] [address] CHEM 7 Collected: 06/28/2017 Status: F Source: [facility] 5:55 AM [facility] REPOSITORY TYPE CODE TESTS RESULT OUT OF [...] >60 mL/min/1.73 Low sqM Est GFR,non 33 [place] LAB GFRA >60 mL/min/1.73 Low sqM Est GFR, 40 Performed By: #### HEMOGC, JEAN-PIERREM7, MGO #### [facility] [address] [place] [address] MAGNESIUM Collected: 06/28/2017 Status: F Source: [facility] 5:55 AM [facility] REPOSITORY TYPE CODE TESTS RESULT OUT OF REFERENCE UNITS RANGE LAB MG 1.6-2.6 mg/dL Magnesium 2.2 Performed By: #### HEMOGC, CHM7, MGO #### [facility] [address] [place] [address] ECHOCARDIOGRAM Observed: 06/27/2017 Status: F Source: [facility] 2:44 PM [facility] REPOSITORY Patient: Cuong Marshall Med Rec#: [id number] : 1945 Date: 06/27/2017 Age: 72y Height: 173 cm / 67.5 in Weight: 79 kg / 173.8 lbs Sex: M BSA: 1.93 Type: Inpatient Loc: [facility] Referring: JOSHUA Reading: Ilya Maza DO Shotblast Equipment Operator: Andi Posey RDCS Rhythm: Normal Sinus HR: [...] surrounding ascites. Clinical correlation required. Diagnosis codes: 27955 Echocardiography, transthoracic, real-time with image documentation (2D), [...] PV peak gradient 3.46 mmHg - (R) [employer]. All Rights Reserved. The codes documented in this report are preliminary and upon linux system administrator review may be revised to meet current compliance requirements. 12 LEAD ELECTROCARDIOGRAM Observed: 06/27/2017 Status: F Source: [facility] 2:24 PM [facility] REPOSITORY [facility] Cardiovascular Services [address] [place] [address] 12 Lead EKG 06/21/17 0908 MR#: [id number] Acct: [id number] Name: CUONG MARSHALL Rep #: [id number] : 1945 72 From: Andi Coe MD Attending Dr: Ady Dumont DO Status: DIS IN Ordering Dr: Jarad Marley MD Date: 06/21/17 Location: [facility] Sex: M C Admitted: 06/21/17 Test Reason [...] Abnormal ECG Confirmed by ANDI COE ([id number]), metropolitan editor MENDEZ OSPINA ([id number]) on 06/27/2017 2:24:23 PM Referred By: Sera Haines Confirmed By:ANDI COE 06/27/17 1427 Date Andi Coe MD CC: Linus Lindquist DO; Jarad Marley MD Signed ESR WESTERGREN Collected: 06/27/2017 Status: F Source: [facility] 11:59 [facility] REPOSITORY TYPE CODE TESTS RESULT OUT OF REFERENCE UNITS RANGE LAB ESR <20 mm/hr ESR High Westergren 108 Performed By: #### ESR, CRP #### [facility] [address] [place] [address] [facility] [address] [place] [address] C REACTIVE PROTEIN Collected: 06/27/2017 Status: F Source: [facility] 11:59 [facility] REPOSITORY TYPE CODE TESTS RESULT OUT OF REFERENCE UNITS RANGE LAB CRP <10.00 mg/L C High Reactive 133.20 Protein Performed By: #### ESR, CRP #### [facility] [address] [place] [address] [facility] [address] [place] [address] BACT CULTURE/DIR Observed: Status: F Source: [place] [facility],LESION,TISSUE,DEVICE-[facility] 06/27/2017 10:20 [facility] REPOSITORY SOURCE: SURGICAL WOUND: Lumbar Region Tissue COMMENT: Tiny Tissue MICROSCOPIC: Neutrophils, None Mononuclear cells present NO ORGANISMS SEEN Gram Stain read at [facility] QUANTITATION: <<NOT APPLICABLE>> RESULT: NO GROWTH DAY 2 REPORT STATUS: 06/29/2017 FINAL Performed By: #### #### [address] [address] Blood Cultures processed at: [facility] Observed: 06/27/2017 Status: F Source: [facility] [employer]: TISSUE -[facility] 10:20 AM [facility] REPOSITORY SOURCE: SURGICAL WOUND: Lumbar Region Tissue COMMENT: Tiny Tissue MICROSCOPIC: No Acid Fast Bacillus Seen :Examined by Fluorochrome Stain RESULT: NO GROWTH DAY 43 OF 43 REPORT STATUS: 08/09/2017 FINAL Performed By: #### AFBT #### [address] [address] Blood Cultures processed at: [facility] XR CHEST PORTABLE Observed: 06/27/2017 Status: F Source: [facility] 9:45 AM [facility] REPOSITORY EXAM: XR CHEST PORTABLE, 06/26/2017 22:48 [...] ,PLATELET,DIFFERENTIAL - CCL Collected: Status: F Source: [facility] 06/27/2017 2:42 AM [facility] REPOSITORY TYPE CODE TESTS RESULT OUT OF [...] 0.92 Low LAB AMONO 0.30-0.82 K/uL Abs Ransom 1.28 High LAB AEOS 0.04-0.54 K/uL Abs Eos 0.06 LAB ABASO 0.01-0.08 K/uL Abs Baso 0.03 Performed By: #### CBCDFC, CA, CHM7, HFP, IPB, MGO, PTPTT, TROP #### [facility] [address] [place] [address] [place] [address] CALCIUM Collected: 06/27/2017 Status: F Source: [facility] 2:42 AM [facility] REPOSITORY TYPE CODE TESTS RESULT OUT OF REFERENCE UNITS RANGE LAB CA 8.6-10.5 mg/dL Low Calcium 8.4 Performed By: #### CBCDFC, CA, CHM7, HFP, IPB, MGO, PTPTT, TROP #### [facility] [address] [place] [address] CHEM 7 Collected: 06/27/2017 Status: F Source: [facility] 2:42 AM [facility] REPOSITORY TYPE CODE TESTS RESULT OUT OF [...] >60 mL/min/1.73 Low sqM Est GFR,non 36 Niuean LAB GFRA >60 mL/min/1.73 Low sqM Est GFR, 43 Performed By: #### CBCDFC, CA, CHM7, HFP, IPB, MGO, PTPTT, TROP #### [facility] [address] [place] [address] [place] [address] HEPATIC FUNCTION Collected: 06/27/2017 Status: F Source: [facility] PANEL 2:42 AM [facility] REPOSITORY TYPE CODE TESTS RESULT OUT OF [...] HFP, IPB, MGO, PTPTT, TROP #### [facility] [address] [place] [id number] [place] [address] [place] [address] INORGANIC PHOSPHATE Collected: 06/27/2017 Status: F Source: [facility] 2:42 AM [facility] REPOSITORY TYPE CODE TESTS RESULT OUT OF REFERENCE UNITS RANGE LAB IP 2.2-4.6 mg/dL Inorg Phosphate 3.1 Performed By: #### CBCDFC, CA, CHM7, HFP, IPB, MGO, PTPTT, TROP #### [facility] [address] [place] [address] [place] [address] MAGNESIUM Collected: 06/27/2017 Status: F Source: [facility] 2:42 AM [facility] REPOSITORY TYPE CODE TESTS RESULT OUT OF REFERENCE UNITS RANGE LAB MG 1.6-2.6 mg/dL Magnesium 2.2 Performed By: #### CBCDFC, CA, CHM7, HFP, IPB, MGO, PTPTT, TROP #### [facility] [address] [place] [phone] [place] [address] [place] [address] PT*PTT Collected: 06/27/2017 Status: F Source: [facility] 2:42 AM [facility] REPOSITORY TYPE CODE TESTS RESULT OUT OF RANGE REFERENCE UNITS LAB PT 11.9-14.2 sec High PT 22.1 LAB INR 0.9-1.1 High INR 2.0 LAB PTT 24.0-34.3 sec High PTT 49.1 Performed By: #### CBCDFC, CA, CHM7, HFP, IPB, MGO, PTPTT, TROP #### [facility] [address] [place] [phone] [place] [address] [place] [address] TROPONIN I Collected: 06/27/2017 Status: F Source: [facility] 2:42 AM [facility] REPOSITORY TYPE CODE TESTS RESULT OUT OF REFERENCE UNITS RANGE LAB BNP 0-100 pg/mL B-Type High Natriuretic 1557 Peptide Performed By: #### CBCDFC, CA, CHM7, HFP, IPB, MGO, PTPTT, TROP #### [facility] [address] [place] [address] [facility] [address] [place], [place] [address] Observed: 06/27/2017 Status: F Source: [facility] BLOOD:ROUTINE II 2:42 AM [facility] REPOSITORY SOURCE: BLOOD, PERIPHERAL: Right Forearm RESULT: NO GROWTH DAY 5 OF 5 REPORT STATUS: 07/02/2017 FINAL Performed By: #### FAST2 #### [facility] [address] [place] [address] Blood Cultures processed at: [facility] Observed: 06/27/2017 Status: F Source: [facility] BLOOD: LINE ASSESSMENT 2:42 AM [facility] REPOSITORY SOURCE: LINE, BREE CVC: RESULT: NO GROWTH DAY 5 OF 5 REPORT STATUS: 07/02/2017 FINAL Performed By: #### LINE #### [place] [address] Blood Cultures processed at: [facility] CREATININE, URINE - Collected: 06/27/2017 Status: F Source: [facility] 2:08 AM [facility] REPOSITORY TYPE CODE TESTS RESULT OUT OF RANGE REFERENCE UNITS LAB CREU1 mg/dL 64.00 Creatinine, urine mg/dL Result Comment: The reference range has not been established for random urine specimens. The test result should be integrated into the clinical context for interpretation. Performed By: #### UCRER, ULYTR, UREAR #### [facility] [place] [facility] [address] [place] [address] LYTES (NA,K,CL), URINE Collected: 06/27/2017 Status: F Source: [facility] 2:08 AM [facility] REPOSITORY TYPE CODE TESTS RESULT OUT OF [...] By: #### UCRER, ULYTR, UREAR #### [facility] [address] [place] [phone] [place] [address] [place] [address] URINE UREA NITROGEN - Collected: 06/27/2017 Status: F Source: [facility] RANDOM 2:08 AM [facility] REPOSITORY TYPE CODE TESTS RESULT OUT OF REFERENCE UNITS RANGE LAB UREA1 mg/dL Urine Urea 829 Nitrogen Performed By: #### UCRER, ULYTR, UREAR #### [facility] [address] [place] [address] [address] URINALYSIS REFLEX Collected: 06/27/2017 Status: F Source: [facility] CULTURE 2:08 AM [facility] REPOSITORY TYPE CODE TESTS RESULT OUT OF RANGE REFERENCE UNITS LAB PROPELLER MECHANIC Clear Appearance Urine Clear LAB SPGR 1.001-1.035 Specific [place] urine 1.020 LAB UGL Negative mg/dL Glucose [...] Absent Performed By: #### URIN1 #### [facility] [address] [place] [address] [place] [address] DISCHARGE SUMMARY Observed: 06/26/2017 Status: F Source: [facility] 9:31 AM [facility] REPOSITORY [facility] Medical Records Department [address] [place] [address] Discharge Summary 06/26/17 0925 MR#: [id number] Acct: [id number] Name: CUONG MARSHALL Rep #: [id number] : 1945 72 From: Ady Dumont DO PCP: Linus Lindquist DO Status: ADM IN Y Location: [place] [address] Discharge Date and Diagnosis - Problem List [...] 06/25/2017 14:01:13 (ET). Consultations 06/21/17 12:49 Consult: Onc/Wound/president practicing urologist Routine Comment: Large sacral decubitus wound Dr. [...] abscess. Patient is to go to the [facility] for evaluation by wound/ostomy clinical nurse specialist in regards to the epidural abscesses. 1. epidural abscess * noted on MRI * Plan is for the patient to go to the [facility] and be evaluated by neurosurgery or for [...] not want to go back to the [facility] who did the initial spine surgery and he and his are [facility]. [facility] as I have been told has a [...] - Activity as directed by the medical device sales and therapist Call your doctor if you [...] - Cardiology When: 2-4 weeks Disposition: Acute [facility] Minutes spent on discharge:: 35 Patient Condition:: Stable Meaningful Use Info Meaningful Use Diagnoses (Choose all that apply): AMI - AMI Aspirin given w/in 24hrs of arrival?: Yes ASA at discharge?: Yes Statins at discharge?: Yes Teetee/ARB at discharge?: No Reason Teetee/ARB not ordered:: Worsening renal disease Beta Cyndi at discharge?: Yes Done w/ Acute IN measure.: Yes Code Visit Inpatient E AND M: 89251 Disch Hosp 06/26/17930 <Electronically signed by Ady Dumont DO> Date Ady Dumont DO Cosigner Signature (if applicable): Date CC: Ady Dumont DO; Linus Lindquist DO Signed CBC W/DIFF, AUTOMATED Collected: 06/26/2017 Status: F Source: [facility] 4:30 AM [facility] REPOSITORY TYPE CODE TESTS RESULT OUT OF [...] 0.73 Performed By: #### L100.0100, L100.4425 #### [facility] [address] [facility] [facility] [address] NRBC PANEL Collected: 06/26/2017 Status: F Source: [facility] 4:30 AM [facility] REPOSITORY TYPE CODE TESTS RESULT OUT OF RANGE REFERENCE UNITS LAB L100.4450 0-5 % Normal NRBC, FLAGGED 0.1 LAB L100.4455 0-5 10 3/uL Normal NRBC # 0.02 Performed By: #### L100.0100, L100.4425 #### [facility] [address] [place], [place], [address] BASIC METABOLIC Collected: 06/26/2017 Status: F Source: [facility] PROFILE (BMP) 4:30 AM [facility] REPOSITORY TYPE CODE TESTS RESULT OUT OF [...] GAP 8 Performed By: #### L500.2500 #### [facility] [address] [facility] 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 REFERRING PHYSICIAN: Dr. Bueno. KNIT GOODS CUTTER HAND: Dr.. Cook. History of Present Illness: 72 year old man presents with a chronic draining lumbar back wound that developed after a microdiscectomy in October, at [facility]. The draining wound never healed. He was scheduled recently for wound closure with muscle flaps in [place]. The surgery was postponed because of persistent [...] partial discectomy by Dr. Swan at the [facility] on November 02, 2015. Allergies sulfamethoxazole [From Bactrim] Allergy (Verified 06/21/17 08:58) Other trimethoprim [From Bactrim] Allergy (Verified 06/21/17 08:58) Other prednisone Adverse Reaction (Verified 06/21/17 08:58) Swelling Current Medications Acetaminophen (Tylenol) 650 mg PO Q6H PRN Amiodarone HCl (Cordarone) 200 mg PO DAILY [facility] Apixaban (Eliquis) 2.5 mg PO BID [facility] Aspirin (Ecotrin) 81 mg PO DAILY@0800 [facility] Atorvastatin Calcium (Lipitor) 20 mg PO QHS [facility] Chlorhexidine Gluconate () 1 each TOPICAL DAILY [facility] Famotidine (Pepcid) 20 mg PO DAILY [facility] Fentanyl (Duragesic) 25 mcg TRANSDERM. Q3D [facility] Folic Acid (Folic Acid) 1 mg PO QHS [facility] Gabapentin (Neurontin) 100 mg PO TIDCM [facility] Hydromorphone HCl (Dilaudid) 2 mg PO Q4H PRN Ceftriaxone Sodium (Rocephin) 1 gm in 50 mls @ 100 mls/hr IV Q24 [facility] Lidocaine (Lidoderm Patch) 1 patch TOPICAL DAILy [facility] Magnesium Hydroxide (Milk Of Magnesia) 30 ml PO DAILY PRN Magnesium Oxide (Mag-Ox 400) 400 mg PO DAILY [facility] Multivitamins/Minerals (Ocuvite) 2 tablet PO DAILY [facility] Psyllium Hydrophilic Mucilloid (Metamucil) 1 packet PO DAILY PRN Senna/Docusate Sodium (Senokot-S, Uma-Colace) 2 tablet PO BID [facility] Home Medications: Ambulatory Orders Medication Instructions Recorded [...] His states he has an appointment in [place] on . She will call them to have it moved till next week. There is no back surgeon available here at [facility]. So he would need to have this operative debridement and bone biopsy done at a tertiary center. He has been going to a Plastic Surgeon in [place]. At the time of the muscle flaps, I anticipate the need for custodial IV antibiotics, and a PICC line would be needed. Also anticipate increased metabolic demands from the infection and the debridement surgery and a Prealbumin should be checked. Will need nutritional supplementation with protein to help the healing process. At the time of his operative debridement in [place], a CT or MRI should be done [...] surgery would need to be done in [place]. Code Visit Inpatient E AND M: 70291 Init Hosp L2 - ICD-10 - L98.496, [...] 06/25/2017 Status: F Source: [facility] 4:59 PM [facility] REPOSITORY TYPE CODE TESTS RESULT OUT OF RANGE REFERENCE UNITS LAB L501.5500 Not Establ. mmol/L Normal UR NA 31 Performed By: #### L501.5500 #### [facility] [address] [place], [address] CREATININE, URINE Collected: 06/25/2017 Status: F Source: [facility] 4:59 PM [facility] REPOSITORY TYPE CODE TESTS RESULT OUT OF RANGE REFERENCE UNITS LAB L502.0300 NO RANGE EST. mg/dL Normal URINE 63.10 CREAT Performed By: #### L502.0300 #### [facility] [address] [place], [address] SPINE LUMBAR Observed: 06/25/2017 Status: F Source: [facility] (ROUTINE) 11:05 AM [facility] REPOSITORY [facility] Imaging Services [address] [place] [address] Spine Lumbar (Routine) MR#: [id number] Acct: [id number] Name: CUONG MARSHALL Rep #: [id number] : 1945 M 72 From: Juan Foster PCP: Linus Lindquist DO Status: ADM IN Study: Spine Lumbar (Routine) Date of Exam: 06/25/17 Exam# [id number] Ordering Dr: Ady Dumont DO STUDY: MRI [...] Juan Foster MD to Dr. Ady Dumont, [facility] Physician, on 06/25/2017 14:01:13 (ET). Electronically Signed: Juan Foster MD at 13:23 EST Tel , Service support , N.B. : The above information has been verbally conveyed by Juan Foster MD to Dr. Ady Dumont, Covering Physician, on 06/25/2017 14:01:13 (ET). CC: Ady Dumont DO; Linus Lindquist DO Shotgun Shell 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 CONSULTATION Observed: 06/25/2017 Status: F Source: [facility] 11:00 AM [facility] Medical Records Department [address] [place] [address] Consultation 06/25/17 1046 MR#: [id number] Acct: [id number] Name: CUONG MARSHALL Rep #: [id number] : 1945 72 From: Dimas Major MD PCP: Linus Lindquist DO Status: ADM IN Y Location: [place] [address] Problem List (1) Bacteremia Status: Acute Reason [...] prior to placing a picc and starting custodial abx. CKD - stable Thank you, will follow. 06/25/17 1100 <Electronically signed by Dimas Major MD> Date Dimas Major MD Cosigner Signature (if applicable): Date CC: Dari Oleary MD; Mikcy Mauro MD; Jonathan Rogers DO; Barrera Mendes D.O.; Farooq Cook MD; Linus Lindquist DO; Dimas Major MD Signed CBC W/DIFF, AUTOMATED Collected: 06/25/2017 Status: F Source: [facility] 4:30 AM [facility] REPOSITORY TYPE CODE TESTS RESULT OUT OF [...] 1.09 Performed By: #### L100.0100, L100.4425 #### [facility] [address] [place], [place], [address] NRBC PANEL Collected: 06/25/2017 Status: F Source: [facility] 4:30 AM [facility] REPOSITORY TYPE CODE TESTS RESULT OUT OF RANGE REFERENCE UNITS LAB L100.4450 0-5 % Normal NRBC, FLAGGED 0.5 LAB L100.4455 0-5 10 3/uL Normal NRBC # 0.05 Performed By: #### L100.0100, L100.4425 #### [facility] [address] [place], [place], [address] BASIC METABOLIC Collected: 06/25/2017 Status: F Source: [facility] PROFILE (BMP) 4:30 AM [facility] REPOSITORY TYPE CODE TESTS RESULT OUT OF [...] 9 Performed By: #### L500.2500, L501.5200 #### [facility] [address] [place], [place], [address] MAGNESIUM Collected: 06/25/2017 Status: F Source: [facility] 4:30 AM [facility] REPOSITORY TYPE CODE TESTS RESULT OUT OF RANGE REFERENCE UNITS LAB L501.5200 1.6-2.6 mg/dL Normal MG 2.2 Result Comment: Please note revised Magnesium reference range effective 2017. Performed By: #### L500.2500, L501.5200 #### [facility] [address] [place], [address] HIP 2-3 VIEWS WITH Observed: 06/24/2017 Status: F Source: [facility] PELVIS 4:21 PM [facility] REPOSITORY [facility] Imaging Services [address] [place] [address] Hip 2-3 Views with Pelvis MR#: [id number] Acct: [id number] Name: CUONG MARSHALL Rep #: [id number] : 1945 M 72 From: Calos Nolan MD PCP: Linus Lindquist DO Status: ADM IN Study: Hip 2-3 Views with Pelvis Date of Exam: 06/24/17 Exam# [id number] Ordering Dr: Ady Dumont DO STUDY: X-RAY [...] CC: Ady Dumont DO; Linus Lindquist DO Shotgun Shell 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 12 LEAD ELECTROCARDIOGRAM Observed: 06/24/2017 Status: F Source: [facility] 1:09 PM [facility] REPOSITORY [facility] Cardiovascular Services [address] [place] [address] 12 Lead EKG 06/21/17 0942 MR#: [id number] Acct: [id number] Name: CUONG MARSHALL Rep #: [id number] : 1945 72 From: Sreedhar Caraballo MD [...] ECG Confirmed by SAMMIE HAYES, SREEDHAR ([id number]), metropolitan editor MENDEZ OSPINA ([id number]) on 06/24/2017 1:08:38 PM Referred By: Sera Haines Confirmed By:SREEDHAR CARABALLO MD 06/24/17 1308 Date Sreedhar Caraballo MD CC: Linus Lindquist DO; Jarad Marley MD Signed 12 LEAD ELECTROCARDIOGRAM Observed: 06/24/2017 Status: F Source: [facility] 1:08 PM [facility] REPOSITORY [facility] Cardiovascular Services [address] [place] [address] 12 Lead EKG 06/21/17 0912 MR#: [id number] Acct: [id number] Name: CUONG MARSHALL Rep #: [id number] : 1945 72 From: Sreedhar Caraballo MD Attending Dr: Ady Dumont DO Status: ADM IN Ordering Dr: Jarad Marley MD Date: 02/16/18 Location: PCU Sex: M C Admitted: 06/21/17 Test Reason [...] ventricular hypertrophy Abnormal ECG Confirmed by SAMMIE HAEYS, SREEDHAR ([id number]), metropolitan editor MENDEZ OSPINA ([id number]) on 06/24/2017 1:08:13 PM Referred By: Sera Haines Confirmed By:SREEDHAR CARABALLO MD 06/24/17 1308 Date Sreedhar Caraballo MD CC: Linus Lindquist DO; Jarad Marley MD Signed Observed: 06/24/2017 Status: F Source: [facility] CULTURE, BLOOD (WB) 8:10 AM [facility] REPOSITORY Has pt arrived? Y BC No growth in 5 days. Performed By: #### M200.1000 #### [facility] [place], [place], [address] Observed: 06/24/2017 Status: F Source: [facility] CULTURE, BLOOD (WB) 8:03 AM [facility] REPOSITORY Has pt arrived? Y BC No growth in 5 days. Performed By: #### M200.1000 #### [facility] [address] [place] [address]. [place], [address] CONSULTATION Observed: 06/23/2017 Status: F Source: [facility] 2:32 PM [facility] REPOSITORY [facility] Medical Records Department [address] [place] [address] Consultation 06/21/17 1329 MR#: [id number] Acct: [id number] Name: CUONG MARSHALL Rep #: [id number] : 1945 72 From: Barrera Mendes DO PCP: Linus Lindquist DO Status: ADM IN Y Location: ICU ICU06-1 ADDENDUM by Cisco Bueno MD on 06/23/17 at 1432 Code Visit Please, disregard my cosigning as it was accidental error to open Dr. Mnedes note. Discussed with Radha Fontanez, associate embalmer/funeral director 06/23/17 1432 <Electronically signed by Cisco Bueno [...] had a back surgery completed at the [facility] several years ago, which failed to heal appropriately. This past February, the patient underwent debridement of the infected area. He has been following with the wound care center at the [facility] and had cultures obtained last week. [...] partial discectomy by Dr. Swan at the [facility] on November 02, 2015. Smoking Status: Former [...] will be ordered. Will attempt to obtain [facility] medical records regarding his recent wound cultures. [...] Clarity Pending Urine pH Pending Ur Specific [place] Pending Urine Protein Pending Urine Glucose (UA) [...] infectious workup 3. Obtain culture data from [facility] 4. Place central venous catheter 5. [...] Will fax a record request to the [facility] to obtain the patient's recent bacterial [...] data and collaboration with the care team. ([id number]) Code Visit Inpatient E AND M: 85372 Init Hosp L3 <Cisco Bueno - Last [...] Hematology: Endocrine: Skin: Lines/Tubes: Checklist: Time: 06/22/17 0722 <Electronically signed by Barrera Mendes DO> Date Barrera Mendes DO 06/23/17 1430<Electronically signed by Cisco Bueno MD> Cosigner Signature (if applicable): Date Cisco Bueno MD CC: Dari Oleary MD; Micky Mauro MD; Jonathan Rogers DO; Barrera Mendes D.O.; Farooq Cook MD; Linus Lindquist DO Signed SOFT TISSUE NECK Observed: 06/23/2017 Status: F Source: [facility] WITHOUT CONTR 1:18 PM [facility] REPOSITORY [facility] Imaging Services [address] [place] [address] Soft Tissue Neck without Contr MR#: [id number] Acct: [id number] Name: CUONG MARSHALL Rep #: [id number] : 1945 M 72 From: Otto Renteria MD PCP: Linus Lindquist DO Status: ADM IN Study: Soft Tissue Neck without Contr Date of Exam: 06/23/17 Exam# [id number] Ordering Dr: Cisco Bueno MD STUDY: CT [...] cava. Normal bilateral parotid glands. Normal bilateral home inspector spaces. Normal bilateral parapharyngeal spaces. Atherosclerotic calcifications [...] CC: Linus Lindquist DO; Cisco Bueno MD Shotgun Shell 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 CONSULTATION Observed: 06/23/2017 Status: F Source: [facility] 10:46 AM [facility] REPOSITORY [facility] Medical Records Department [address] [place] [address] Consultation 06/23/17 1034 MR#: [id number] Acct: [id number] Name: CUONG MARSHALL Rep #: [id number] : 1945 72 From: López Meyers MD [...] (Cordarone) 200 mg PO DAILY [facility] Last Admin: 06/22/17 16:40 Dose: 200 mg Apixaban (Eliquis) 2.5 mg PO BID [facility] Last Admin: 06/22/17 21:37 Dose: 2.5 mg Aspirin (Ecotrin) 81 mg PO DAILY@0800 [facility] Last Admin: 06/23/17 08:16 Dose: 81 mg Atorvastatin Calcium (Lipitor) 20 mg PO QHS [facility] Last Admin: 06/22/17 21:37 Dose: 20 mg Chlorhexidine Gluconate () 1 each TOPICAL DAILY [facility] Last Admin: 06/23/17 05:48 Dose: 1 each Famotidine (Pepcid) 20 mg PO DAILY [facility] Last Admin: 06/22/17 10:50 Dose: 20 mg Fentanyl (Duragesic) 25 mcg TRANSDERM. Q3D [facility] Last Admin: 06/22/17 13:52 Dose: 25 mcg Folic Acid (Folic Acid) 1 mg PO QHS [facility] Last Admin: 06/22/17 21:37 Dose: 1 mg Gabapentin (Neurontin) 100 mg PO BIDCM [facility] Last Admin: 06/23/17 08:16 Dose: 100 mg Sodium Chloride () 250 mls @ 15 mls/hr IV .[id number] PRN PRN Reason: SALINE FLUSH Last Admin: 06/22/17 21:38 Dose: 15 mls/hr Sodium Chloride () 250 mls @ 15 mls/hr IV .[id number] PRN PRN Reason: SALINE FLUSH Cefepime HCl 1 gm/ Sodium (Chloride) 50 mls @ 100 mls/hr IV Q12 [facility] Last Admin: 06/22/17 21:37 Dose: 100 mls/hr Magnesium Hydroxide (Milk Of Magnesia) 30 ml PO DAILY PRN PRN PRN Reason: Constipation Magnesium Oxide (Mag-Ox 400) 400 mg PO DAILY [facility] Last Admin: 06/22/17 10:49 Dose: 400 mg Multivitamins/Minerals (Ocuvite) 2 tablet PO DAILY [facility] Last Admin: 06/22/17 10:50 Dose: 2 tablet Psyllium Hydrophilic Mucilloid (Metamucil) 1 packet PO DAILY PRN PRN PRN Reason: CONSTIPATION Senna/Docusate Sodium (Senokot-S, Uma-Colace) 2 tablet PO BID [facility] Last Admin: 06/22/17 21:37 Dose: 2 tablet [...] partial discectomy by Dr. Swan at the [facility] on November 02, 2015. 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 Lumbar wound infection on abx- agree for [...] 06/23/2017 Status: F Source: HAN 4:20 AM [facility] REPOSITORY TYPE CODE TESTS RESULT OUT OF [...] Lymph 0.80 Performed By: #### L100.0100 #### [facility] [address] [place] [address]. [place], [place], [address] COMPREHENSIVE METABOLIC Collected: 06/23/2017 Status: F Source: [facility] 4:20 AM [facility] REPOSITORY TYPE CODE TESTS RESULT OUT OF [...] GAP 9 Performed By: #### L500.4050 #### [facility] [address] [facility] [place], [address] HEMOGLOBIN A1C Collected: 06/23/2017 Status: F Source: HAN 4:20 AM [facility] REPOSITORY TYPE CODE TESTS RESULT OUT OF RANGE REFERENCE UNITS LAB L501.9985 4.2-6.3 % Normal HGB A1C 5.3 Performed By: #### L501.9985 #### [facility] [address] [facility] [place], [address] BEDSIDE GLUCOSE Collected: 06/22/2017 Status: F Source: HAN 6:13 AM [facility] REPOSITORY TYPE CODE TESTS RESULT OUT OF REFERENCE UNITS RANGE LAB L501.080 70-110 mg/dL High BEDSIDE GLU 117 Result Comment: MANAGEMENT OF PATIENT CARE PER NURSING PROTOCOL Performed By: #### L501.080 #### [facility] Point of Care [address] [place], [place] [address] CBC-COMPLETE BLOOD CNT Collected: 06/22/2017 Status: F Source: HAN NO DIFF 4:50 AM [facility] REPOSITORY TYPE CODE TESTS RESULT OUT OF [...] MPV 9.7 Performed By: #### L100.0500 #### [facility] [address] [place], [place], [address] BASIC METABOLIC Collected: 06/22/2017 Status: F Source: HAN PROFILE (BMP) 4:50 AM [facility] REPOSITORY TYPE CODE TESTS RESULT OUT OF [...] GAP 11 Performed By: #### L500.2500 #### [facility] [address] [facility] [place], [address] TROPONIN-I Collected: 06/22/2017 Status: F Source: HAN 12:30 AM [facility] REPOSITORY Order Comment: 'TROP' Serial specimen #1, #2, #3, or #4: 4 TYPE CODE TESTS RESULT OUT OF RANGE REFERENCE UNITS LAB L501.4010 <0.06 ng/mL High alert 1.00 TROPONIN-I Result Comment: Critical Result(s) Called at: 01:06:21 06/22/2017 by: MELITA Vu TROPONIN-I EXPECTED VALUES <0.05 NEGATIVE 0.06 - 0.59 AT RISK OF IN > OR = 0.60 SUGGEST IN Performed By: #### L501.4010 #### [facility] [address] [place], [address] BEDSIDE GLUCOSE Collected: 06/22/2017 Status: F Source: HAN 12:00 AM [facility] REPOSITORY TYPE CODE TESTS RESULT OUT OF REFERENCE UNITS RANGE LAB L501.080 70-110 mg/dL High BEDSIDE GLU 133 Result Comment: MANAGEMENT OF PATIENT CARE PER NURSING PROTOCOL Performed By: #### L501.080 #### [facility] Point of Care [address] [place] [address] LACTIC ACID Collected: 06/21/2017 Status: F Source: [facility] 6:05 PM [facility] REPOSITORY Order Comment: Yes/No query for Sepsis Lactate Rule Y TYPE CODE TESTS RESULT OUT OF RANGE REFERENCE UNITS LAB L503.6005 0.4-2.0 mmol/L Normal LACTIC ACID 2.0 Result Comment: Critical Result(s) Called at: 19:51:36 06/21/2017 by: Sadie Natarajan to [facility] Performed By: #### L503.6005 #### [facility] [address] [place], [address] TROPONIN-I Collected: 06/21/2017 Status: F Source: [facility] 6:05 PM [facility] REPOSITORY Order Comment: 'TROP' Serial specimen #1, #2, #3, or #4: 3 TYPE CODE TESTS RESULT OUT OF RANGE REFERENCE UNITS LAB L501.4010 <0.06 ng/mL High alert 1.12 TROPONIN-I Result Comment: Critical Result(s) Called at: 19:52:06 06/21/2017 by: Sadie [facility]atarajan to [facility] TROPONIN-I EXPECTED VALUES <0.05 NEGATIVE 0.06 - 0.59 AT RISK OF IN > OR = 0.60 SUGGEST IN Performed By: #### L501.4010 #### [facility] [address] [place], [address] ECHOCARDIOGRAM COMPLETE Observed: 06/21/2017 Status: F Source: [facility] 6:04 PM [facility] REPOSITORY [facility] Cardiovascular Services [address] [place] [address] Echo Complete 06/21/17 1326 MR#: [id number] Acct: [id number] Name: CUONG MARSHALL Rep #: [id number] : 1945 72 From: Sreedhar Caraballo MD [...] Mid-inferoseptal : Akinetic. Mid-anteroseptal : Hypokinetic. Anterior Durant : Not visualized. Inferior Durant : Not visualized. Lateral Durant : Not visualized. Septal Durant : Severely Hypokinetic. Right Ventricle Mildly dilated [...] Date Dictated: 06/21/17 1326 Date Transcribed: 06/21/171803 Shotgun Shell 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 HISTORY AND PHYSICAL Observed: 06/21/2017 Status: F Source: [facility] EXAM 4:33 PM [facility] REPOSITORY [facility] Medical Records Department [address] [place] [address] History and Physical 06/21/17 1209 MR#: [id number] Acct: [id number] Name: CUONG MARSHALL Rep #: [id number] : 1945 72 From: Cisco Bueno MD PCP: Linus Lindquist DO Status: ADM IN Y Location: ICU ICU06-1 ADDENDUM by Cisco Bueno MD on 06/21/17 at 1633 Code Visit Discussed with the family dentist, Dr. Mendes. We agree that patient has [...] partial discectomy by Dr. Swan at the [facility] on November 02, 2015. Smoking Status: Former [...] 25 mg twice daily. Repeat 2D echo. Hothouse Worker consulted. Report Clerk consulted. Cycle cardiac enzymes. Chronic diastolic heart [...] 2.16. Major strict input and output. Consult [place] [facility]. 5. Severe protein calorie malnutrition: As per the patient's , his body weight was 225 pound last summer, 2016 currently 175. Lost about 50 pounds in [...] 89.4 H, Lymph % (Auto) 5.5 L, Ransom % (Auto) 4.7, Eos % (Auto) 0.0, [...] Flow 2.0, Blood Gas Notified Whom ED MD, Blood Gas Notified Time 933 Code Visit Inpatient E AND M: 93355 Init Hosp L3 Procedures: 78574 Advncd Care Plan 30 Min 06/21/17 1456 <Electronically signed by Cisco Bueno MD> Date Cisco Bueno MD Cosigner Signature: Date (if applicable) CC: Linus Lindquist DO; Cisco Bueno MD Signed PROTHROMBIN TIME W/INR Collected: 06/21/2017 Status: F Source: [facility] 4:15 PM [facility] REPOSITORY TYPE CODE TESTS RESULT OUT OF RANGE REFERENCE UNITS LAB L300.4150 11.7-14.9 SECONDS High PROTIME 21.1 LAB L300.4200 Normal INR 1.9 Performed By: #### L300.3900, L300.4310 #### [facility] [address] [place], [address] PARTIAL THROMBOPLAST Collected: 06/21/2017 Status: F Source: HAN TIME 4:15 PM [facility] REPOSITORY TYPE CODE TESTS RESULT OUT OF REFERENCE UNITS RANGE LAB L300.4310 24.1-36.2 Seconds High PTT 49.1 Performed By: #### L300.3900, L300.4310 #### [facility] [address] [place], [address] Observed: 06/21/2017 Status: F Source: [facility]AN CULTURE, BLOOD (WB) 3:10 PM [facility] REPOSITORY Has pt arrived? Y BC No growth in 5 days. Performed By: #### M200.1000 #### [facility] [address] [place], [address] Observed: 06/21/2017 Status: F Source: HAN RESPIRATORY PANEL 3:05 PM [facility] MOLECULAR REPOSITORY RP PANEL ADENOVIRUS Not Detected [...] acid amplification Performed By: #### M100.638 #### [facility] [address] [place], [place], [address] OPERATIVE REPORT Observed: 06/21/2017 Status: F Source: HAN 2:43 PM [facility] REPOSITORY [facility] Medical Records Department [address] [place] [address] Operative Report 06/21/17 1440 MR#: [id number] Acct: [id number] Name: CUONG MARSHALL Rep #: [id number] : 1945 72 From: Abbey Pina NETWORK ARCHITECTMathewC PCP: Linus Lindquist DO Status: ADM IN [...] LINE PLACEMENT Observed: 06/21/2017 Status: F Source: [facility] 2:34 PM [facility] REPOSITORY [facility] Imaging Services [address] [place] [address] CXR for Line Placement MR#: [id number] Acct: [id number] Name: CUONG MARSHALL Rep #: [id number] : 1945 M 72 From: Kalie Ospina MD PCP: Linus Lindquist DO Status: ADM IN Study: CXR for Line Placement Date of Exam: 06/21/17 Exam# [id number] Ordering Dr: Barrera Mendes DO STUDY: X-RAY [...] CC: Barrera Mendes D.O.; Linus Lindquist DO Shotgun Shell 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 CONSULTATION Observed: 06/21/2017 Status: F Source: [facility] 2:32 PM [facility] REPOSITORY [facility] Medical Records Department [address] [place] [address] Consultation 06/21/17 1421 MR#: [id number] Acct: [id number] Name: CUONG MARSHALL Rep #: [id number] : 1945 72 From: Solitario Poon MD [...] partial discectomy by Dr. Swan at the [facility] on November 02, 2015. - *Family History [...] Clarity Turbid, Urine pH 5.0, Ur Specific [place] 1.015, Urine Protein 100 H, Urine Glucose [...] DO Signed Observed: 06/21/2017 Status: F Source: [facility] CULTURE, BLOOD (WB) 2:30 PM [facility] REPOSITORY Has pt arrived? Y BC POSITIVE [...] <=20 S (NF) indicates non-formulary drug at [facility]. Approval by Infectious Disease Specialist required before non-formulary drugs may be ordered and/or dispensed. Performed By: #### M200.1000 #### [facility] [address] [place], [address] TROPONIN-I Collected: 06/21/2017 Status: F Source: [facility] 2:00 PM [facility] REPOSITORY Order Comment: 'TROP' Serial specimen #1, #2, #3, or #4: 2 TYPE CODE TESTS RESULT OUT OF RANGE REFERENCE UNITS LAB L501.4010 <0.06 ng/mL High alert 0.71 TROPONIN-I Result Comment: Critical Result(s) Called at: 14:51:14 06/21/2017 by: Kingsley Carrasco TO NURSE ELLIOTT TROPONIN-I EXPECTED VALUES <0.05 NEGATIVE 0.06 - 0.59 AT RISK OF IN > OR = 0.60 SUGGEST IN Performed By: #### L501.4010 #### [facility] [address] [place], [address] LACTIC ACID Collected: 06/21/2017 Status: F Source: HAN 2:00 PM [facility] REPOSITORY Order Comment: Yes/No query for Sepsis Lactate Rule Y TYPE CODE TESTS RESULT OUT OF REFERENCE UNITS RANGE LAB L503.6005 0.4-2.0 mmol/L High LACTIC ACID 2.8 Result Comment: Critical Result(s) Called at: 14:56:00 06/21/2017 by: Kingsley ARENAS Performed By: #### L503.6005 #### [facility] [address] [place], [address] MRSA WOUND DNA BY Collected: 06/21/2017 Status: F Source: [facility]AN PCR 1:33 PM [facility] REPOSITORY TYPE CODE TESTS RESULT OUT OF RANGE REFERENCE UNITS LAB L8200.1100 Negative Normal MRSA Negative RESULT LAB L8200.1150 Negative Normal SA RESULT NEGATIVE Performed By: #### L8200.1075 #### [facility] [address] [place], [address] Observed: 06/21/2017 Status: F Source: [facility]AN CULTURE, WOUND 1:33 PM [facility] REPOSITORY Comments: lumbar wound Gram Stain Gram [...] <=20 S (NF) indicates non-formulary drug at [facility]. Approval by Infectious Disease Specialist required before non-formulary drugs may be ordered and/or dispensed. Performed By: #### M100.1400 #### [facility] [address] [facility] [place], [address] URINALYSIS, ROUTINE Collected: 06/21/2017 Status: F Source: [facility]AN (DIPSTICK) 1:05 PM [facility] REPOSITORY Order Comment: Diagnosis: GARCIA COLOR OF URINE MAY AFFECT DIPSTICK RESULTS. How was Urine Obtained? MANAGER COMMISSION TO SPECIFY TYPE CODE TESTS RESULT OUT [...] ESTERASE 100 Performed By: #### L400.2011 #### [facility] [place], [address] M R STAPH AUREUS Collected: 06/21/2017 Status: F Source: HAN DNA BY PCR 1:05 PM [facility] REPOSITORY TYPE CODE TESTS RESULT OUT OF RANGE REFERENCE UNITS LAB L8200.1100 Negative Normal MRSA Negative RESULT Performed By: #### L8200.1000 #### [facility] [place], [address] Observed: 06/21/2017 Status: F Source: [facility]AN CULTURE, URINE 1:05 PM [facility] REPOSITORY Urine Culture Culture exhibits no growth. Performed By: #### M100.0650 #### [facility] [address] [place] [address], [address] EMERGENCY DEPARTMENT Observed: 06/21/2017 Status: F Source: HAN SUMMARY 10:22 AM [facility] REPOSITORY [facility] Medical Records Department [address] [place] [address] Emergency Department Summary 06/21/17 0957 MR#: [id number] Acct: [id number] Name: CUONG MARSHALL Rep #: [id number] : 1945 72 From: Jarad Marley MD [...] pulmonary hypertension This note was generated with adFreeq dictation software. It may contain incorrect words, [...] problems, contact your Primary Care Provider. Call [facility] ([phone]) or report to the closest Emergency Room. Call 911 if necessary. 06/21/17 1022 <Electronically signed by Jarad Marley MD> Date Jarad Marley MD Cosigner Signature (If Indicated): Date CC: Linus Lindquist DO BLOOD GASES BY CPS Collected: 06/21/2017 Status: F Source: HAN 9:38 AM [facility] REPOSITORY TYPE CODE TESTS RESULT OUT OF [...] ISTAT 97 Performed By: #### L9000.0800 #### [facility] Point of Care [address] [place] [address] LACTIC ACID Collected: 06/21/2017 Status: F Source: [facility] 9:13 AM [facility] REPOSITORY Order Comment: Yes/No query for Sepsis Lactate Rule Y TYPE CODE TESTS RESULT OUT OF REFERENCE UNITS RANGE LAB L503.6005 0.4-2.0 mmol/L High LACTIC ACID 3.0 Result Comment: Critical Result(s) Called at: 09:53:05 06/21/2017 by: Kingsley Carrasco TO JAZMYNE WALLS Performed By: #### L503.6005 #### [facility] [address] [place], [address] BRAIN/HEAD WITHOUT Observed: 06/21/2017 Status: F Source: [facility] CONTRAST 9:11 AM [facility] REPOSITORY [facility] Imaging Services [address] [place] [address] Brain/Head without Contrast MR#: [id number] Acct: [id number] Name: CUONG MARSHALL Rep #: [id number] : 1945 M 72 From: Kalie Ospina MD PCP: Linus Lindquist DO Status: REG ER Study: Brain/Head without Contrast Date of Exam: 06/21/17 Exam# [id number] Ordering Dr: Jarad Marley MD STUDY: CT [...] Service support , CC: Linus Marley MD Shotgun Shell 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 CBC W/DIFF, AUTOMATED Collected: 06/21/2017 Status: F Source: HAN 9:05 AM [facility] REPOSITORY TYPE CODE TESTS RESULT OUT OF [...] Lymph 0.87 Performed By: #### L100.0100 #### [facility] [address] [place] [address]. [place], [place], [address] BASIC METABOLIC Collected: 06/21/2017 Status: F Source: [facility] PROFILE (BMP) 9:05 AM [facility] REPOSITORY Order Comment: 'TROP' Serial specimen #1, [...] 13 Performed By: #### L500.2500, L501.4010 #### [facility] [address] [facility] [place], [place], [address] TROPONIN-I Collected: 06/21/2017 Status: F Source: HAN 9:05 AM [facility] REPOSITORY Order Comment: 'TROP' Serial specimen #1, #2, #3, or #4: 1 TYPE CODE TESTS RESULT OUT OF RANGE REFERENCE UNITS LAB L501.4010 <0.06 ng/mL High 0.26 TROPONIN-I Result Comment: TROPONIN-I EXPECTED VALUES <0.05 NEGATIVE 0.06 - 0.59 AT RISK OF IN > OR = 0.60 SUGGEST IN Performed By: #### L500.2500, L501.4010 #### [facility] [address] [place], [place], [address] BNP,B-TYPE NATRIURETIC Collected: 06/21/2017 Status: F Source: HAN PEPTIDE 9:05 AM [facility] REPOSITORY TYPE CODE TESTS RESULT OUT OF RANGE REFERENCE UNITS LAB L503.6620 0-100 pg/mL High B-TYPE > 5000.0 DANILO PEP Performed By: #### L503.6620 #### [facility] [address] [place], [address] COMPREHENSIVE METABOLIC Collected: 06/21/2017 Status: F Source: HAN ASIF 9:05 AM [facility] REPOSITORY TYPE CODE TESTS RESULT OUT OF [...] GAP 17 Performed By: #### L500.4050 #### [facility] [address] [place], [address] CHEST 1 VIEW Observed: 06/21/2017 Status: F Source: [facility] (PORTABLE) 9:03 AM [facility] REPOSITORY [facility] Imaging Services [address] [place] [address] Chest 1 View (Portable) MR#: [id number] Acct: [id number] Name: CUONG MARSHALL Rep #: [id number] : 1945 M 72 From: Kalie Ospina MD PCP: Linus Lindquist DO Status: REG ER Study: Chest 1 View (Portable) Date of Exam: 06/21/17 Exam# [id number] Ordering Dr: Jarad Marley MD STUDY: X-RAY [...] Service support , CC: Linus Marley MD Shotgun Shell 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 LACTIC ACID Collected: 06/21/2017 Status: F Source: HAN 12:30 AM [facility] REPOSITORY TYPE CODE TESTS RESULT OUT OF RANGE REFERENCE UNITS LAB L503.6005 0.4-2.0 mmol/L Normal LACTIC ACID 1.4 Performed By: #### L503.6005 #### [facility] [place], [address] CBC W/DIFF, AUTOMATED Collected: 06/17/2017 Status: F Source: [facility] 11:35 AM [facility] REPOSITORY TYPE CODE TESTS RESULT OUT OF [...] Lymph 0.91 Performed By: #### L100.0100 #### [facility] [address] [place], [place], [address] IRON+IRON BINDING Collected: 06/17/2017 Status: F Source: [facility] 11:35 AM [facility] REPOSITORY TYPE CODE TESTS RESULT OUT OF RANGE REFERENCE UNITS LAB L503.6075 250-450 ug/dL TIBC Normal 252 LAB L503.6150 65-175 ug/dL Low IRON 57 LAB L503.6250 15.0-55.0 % IRON Normal SATURATION 22.6 Performed By: #### L503.6030, L503.6550 #### [facility] [address] [place], [place], [address] FERRITIN Collected: 06/17/2017 Status: F Source: [facility] 11:35 AM [facility] REPOSITORY TYPE CODE TESTS RESULT OUT OF RANGE REFERENCE UNITS LAB L503.6550 26-388 ng/mL Normal FERRITIN 95 Performed By: #### L503.6030, L503.6550 #### [facility] [address] [place], [place], [address] BACT CULTURE/DIR Observed: Status: F Source: [place] SMEAR,LESION,TISSUE,DEVICE-E 06/13/2017 12:51 [facility] REPOSITORY SOURCE: WOUND: Back Tissue COMMENT: Tiny [...] by [facility] at [facility]. It has not been cleared or approved by the FDA. The laboratory is regulated under CLIA as qualified to perform high- complexity testing. This test is used for cl inical purposes. It should not be regarded as investigational or for research REPORT STATUS: 06/15/2017 FINAL Performed By: #### GEN #### [facility] [address] [place] [address] Blood Cultures processed at: [facility] HH, HEMOGLOBIN AND Collected: 06/03/2017 Status: F Source: HAN HEMATOCRIT 12:00 AM [facility] REPOSITORY TYPE CODE TESTS RESULT OUT OF RANGE REFERENCE UNITS LAB L100.1300 13.0-16.5 g/dl Low HGB 10.4 LAB L100.1400 40-54 % Low HCT 32.3 Performed By: #### L100.0600 #### [facility] [address] [place], [place], [address] RENAL PROFILE Collected: 06/03/2017 Status: F Source: HAN 12:00 AM [facility] REPOSITORY TYPE CODE TESTS RESULT OUT OF [...] CO2 22.0 Performed By: #### L500.3600 #### [facility] [address] [place], [address] ALLERGIES ALLERGIES DATE TYPE / CODE NAME / CODE REACTION SEVERITY SOURCE 05/05/2018 Drug prednisone/F0060 Swelling Unknown [facility]416 65792([facility]) [facility] 429678(SNOM Repository ED CT) 05/05/2018 Drug chlorthalidone/F Unknown Unknown [facility]/416 [id number](RXNORM Hospital 716106(SNOM ) Repository ED CT) 05/05/2018 Drug sulfamethoxazole Other Unknown [facility]/416 /[id number](RX Hospital 719866(SNOM RM) Repository ED CT) 05/05/2018 Drug trimethoprim/F00 Other Unknown [facility]/085 1102335(RXNORM) Hospital 795564(SNOM Repository ED CT) 05/05/2018 Drug ramipril/[id number] Unknown Unknown [facility]/416 585(RXNORM) Hospital 975314(SNOM Repository ED CT) 05/05/2018 Drug trazodone/V78419 Unknown Unknown [facility] Allergy/416 4610(RXNORM) Hospital 192981(SNOM Repository ED CT) Drug NO KNOWN [facility] Class/08647 ALLERGIES [facility] [place] 1003(SNOMED Repository CT) ENCOUNTERS ENCOUNTERS ADMIT/DISCHARGE ACCOUNT NUMBER ADMITTING ENCOUNTER LOCATION SOURCE CLASS 05/19/2018 [id number] [facility] ding:[facility] Repository 05/16/2018 [id number] [facility] ding: Repository 05/05/2018 [id number] [facility] ding:[facility] Repository 05/02/2018/05/05/[id number] ding: Repository 2018 [id number] [facility] ding:[facility] Repository 04/08/2018 [id number] [facility] 04/04/2018/04/04/20 [id number] [facility] Rep[facility] 04/03/2018 [id number] [facility] ding[facility] Repository URE 04/02/2018/04/04/20 [id number] Ambulatory [address] Repository 03/28/2018 [id number] [facility] Repository 03/25/2018 [id number] Ambulatory [facility]: [place] [facility]MS.[facility] Repository 03/14/2018 [id number] [facility] ding[facility] Repository 03/11/2018/03/13/20 [id number] Ambulatory [address] Repository 02/28/2018/03/05/20 [id number] Amb[address] Hospital ding:WC Repository 02/28/2018 [id number] [facility] ding[facility] Repository 02/27/2018 [id number] [facility] ding[facility]LAB.[facility] Repository URE 02/24/[id number] [facility] Hospital ding:CT Repository 02/21/[id number] [facility] Hospital ding:[facility]SPEC Repository 02/20/2018 [id number] [facility] Repository 02/14/2018 [id number] [facility] ding[facility] Repository 01/31/2018/02/03/20 [id number] Ambulatory [facility] [address] Hospital ding:WC Repository 01/31/2018 [id number] [facility] 01/23/2018 [id number] Ambulatory BMSBuilding: [facility] Repository 01/23/2018 [id number] Ambulatory BMSBuilding: [place] [facility] Repository 01/20/2018 [id number] [facility]ository 01/17/2018 [id number] [facility] Repository 01/10/2018 [id number] [facility]P Repository 01/03/2018/01/04/20 [id number] Ambulatory [place] [address] [facility] Hospital ding:WC Repository 01/03/2018 [id number] [facility] [place] [facility] ding:MEDOUTP Repository 12/27/2017 [id number] [facility]MED[facility]P Repository 12/13/2017 [id number] [facility] Repository 12/12/2017 [id number] Ambulatory Building:[facility] Repository 12/12/2017 [id number] Ambulatory ABuilding:[facility] Repository 12/02/2017/12/04/19 [id number] Ambulatory [place] Han[address] Hospital ding: Repository 11/29/2017 [id number] [facility] Repository 11/28/2017 [id number] Ambulatory Building:[facility] Repository 11/27/2017 [id number] [facility] Repository 11/27/2017 [id number] Ambulatory BMSBuilding: [place] [facility] Repository 11/27/2017 [id number] Ambulatory BMSBuilding: [place] [facility] Repository 11/19/2017/11/20/19 [id number] Ambulatory BMSBuilding: [place] [facility] Repository 11/15/2017 [id number] [facility] ding[facility]MEDOUTP Repository 11/01/2017/11/03/19 [id number] Ambulatory Han Han[address] [facility] Hospital ding: Repository 11/01/2017 [id number] [facility] Repository 10/16/[id number] [facility] Hospital ding:MEDOUTP Repository 10/09/2017 [id number] Ambulatory BMSBuilding: [facility] Repository 10/02/2017/10/04/19 [id number] Ambulatory [address] Hospital ding: Repository 10/02/2017 [id number] Ambulatory BMSBuilding: [facility] Repository 10/01/[id number] [facility] Hospital ding:MEDOUTP Repository 09/25/2017 [id number] Ambulatory BMSBuilding: [facility] Repository 09/25/2017 [id number] Ambulatory BMSBuilding: [facility] Repository 09/18/2017 [id number] Ambulatory BMSBuilding: [facility] Repository 09/17/2017 [id number] Ambulatory [facility] ding:MEDOUTP Repository 09/11/2017 [id number] Ambulatory BMSBuilding: [facility] Repository 09/05/2017 [id number] Ambulatory BMSBuilding: [facility] Repository 09/03/2017 [id number] Ambulatory [facility] ding:MEDOUTP Repository 08/30/2017 [id number] Ambulatory [facility] ding:LABSPEC Repository 08/29/2017 [id number] Ambulatory Building:[facility] Repository 08/28/2017/09/03/19 [id number] Ambulatory [address] Hospital ding: Repository 08/28/2017 [id number] Ambulatory BMSBuilding: [facility] Repository 08/27/2017/08/28/19 [id number] Ambulatory BMSBuilding: [address] Repository 08/26/2017 [id number] Ambulatory BMSBuilding: [facility] Repository 08/22/2017 [id number] Ambulatory [facility] Repository 08/21/2017 [id number] Ambulatory BMSBuilding: [facility] Repository 08/20/2017 [id number] Ambulatory [facility] ding:MEDOUTP Repository 08/14/[id number] [facility] Hospital ding:HHLAB Repository 08/07/2017 [id number] Ambulatory BMSBuilding: [facility] Repository 08/06/2017 [id number] Ambulatory [facility] ding:MEDOUTP Repository 08/02/2017/08/04/19 [id number] Ambulatory [place] Han[address] ding:WC Repository 07/30/2017/08/04/19 [id number] Ambulatory [place] [address] ding:HHLAB Repository 07/24/2017/07/25/19 [id number] Emergency [address] ding:ED Repository 07/24/2017 [id number] Ambulatory [facility] ding:MRI Repository 07/23/2017 [id number] Ambulatory [facility] ding:MEDOUTP Repository 07/22/2017 [id number] Ambulatory [facility] ding:LABSPEC Repository 07/17/2017 [id number] Ambulatory BMSBuilding: [place] [facility] Repository 07/17/2017/07/18/19 [id number] Emergency [address] ding:ED Repository 07/16/2017 [id number] Ambulatory [facility] ding:LABSPEC Repository 07/04/2017/07/13/19 [id number] Frank Olmedo Inpatient Han [place] [address] [facility] ding:TCURoom Repository : KNA53Ufv: 1 06/26/2017/07/05/19 [id number] WERNER, Inpatient Building:[address] Encounter Room: [place] [address]Bed: A [facility] Repository 06/21/2017/06/26/19 [id number] Myles, Inpatient [place] 18 [facility] ding:PCURoom Repository : [id number]: 1 06/21/2017 [id number] Myles, Ambulatory BMSBuilding: [facility] Repository 06/21/2017 [id number] Myles, Ambulatory BMSBuilding: [place] [facility] BMS.CF.[facility] Repository 06/21/2017 [id number] Myles, Ambulatory BMSBuilding: [place] [facility] Repository 06/21/2017 [id number] Myles, Ambulatory BMSBuilding: [facility] BMS.CF.[facility] Repository 06/21/2017 [id number] Myles, Ambulatory BMSBuilding: [place] [facility] Repository 06/21/2017 [id number] [facility], Ambulatory BMSBuilding: [facility] Repository 06/21/2017 [id number] Myles, Ambulatory BMSBuilding: [place] [facility] BMS.CF.[facility] Repository 06/21/2017 [id number] Myles, Ambulatory BMSBuilding: [place] [facility] Repository 06/21/2017 [id number] Myles, Ambulatory BMSBuilding: [place] [facility] Repository 06/21/2017 [id number] [facility], Ambulatory BMSBuilding: [place] [facility] Repository 06/21/2017 [id number] Myles, Ambulatory BMSBuilding: [place] [facility] BMS.CF.[facility] Repository 06/21/2017 [id number] Myles, Ambulatory BMSBuilding: [facility] Repository 06/21/2017 [id number] Myles, Ambulatory BMSBuilding: [place] [facility] Repository 06/21/2017 [id number] Myles, Ambulatory BMSBuilding: [place] [facility] BMS.CF.[facility] Repository 06/21/2017 [id number] Myles, Ambulatory BMSBuilding: [place] [facility] Repository 06/21/2017/06/26/19 [id number] Ambulatory BMSBuilding: [address] Repository 06/21/2017/06/26/19 [id number] Ambulatory BMSBuilding: [address] Repository 06/17/2017 [id number] [facility] Repository 06/13/2017 [id number] Ambulatory Building:ET9 [facility] Repository 06/13/2017 [id number] Ambulatory Building:EAC [facility] Repository 06/07/2017/07/03/19 [id number] [place] [address] [place] [address] ding: Repository 06/03/2017 [id number] [facility]P Repository 05/31/2017/06/05/19 [id number] Ambulatory Han Han [address] [place] [address] ding: Repository PAYERS PAYERS ENCOUNTER GUARANTOR PAYER SUBSCRIBER SOURCE 05/19/2018 CUONG Chodwhury Primary CUONG Short [id number] Insurance:MEDICARE SCHUBERTDOB: [facility] PART A BPolicy [place]: [id number] [id number] Repository 70774Yof: 330) Date:2018-05-059037 (HP) 05/19/2018 Secondary CUONG Short Insurance:HUMANA SCHUBERTDOB: [facility] [id number] Hospital Number: Repository [id number] Date:6130-52-61PC [address] [address]TN: 05/19/2018 Tertiary NOT GIVENUNK [place] Insurance:SELF PAY [facility] Number: Effective Repository Date:2018-05-05 05/16/2018 CUONG L Primary CUONG Short [id number] Insurance:MEDICARE SCHUBERTDOB: [facility] PART A BPolicy Number: [id number], [place] [id number] Repository [address]Fqi: (330) Date:2009-04-057696 (HP) 05/16/2018 Secondary CUONG L Han Insurance:HUMANA [facility]: [facility] [id number] Hospital Number: Repository [id number] Date:1926-06-74BN [address] [place] [address]CI: 05/16/2018 Tertiary NOT GIVENUNK [place] Insurance:SELF PAY [facility] Number: Effective Repository Date:2018-05-06 05/05/2018 CUONG Chowdhury Primary CUONG Short [id number] Insurance:MEDICARE SCHUBERTDOB: Community ALYSA PART A BPolicy Number: [id number], [place] [id number] Repository [address]Gsm: (586) Date:[phone] () 05/05/2018 Secondary CUONG Chowdhury [place] Insurance:HUMANA SCHUBERTDOB: [facility] [id number] Hospital Number: Repository [id number] Date:8578-29-56KK [address] [address]ID: 05/05/2018 Tertiary NOT GIVENUNK [place] Insurance:SELF PAY [facility] Number: Effective Repository Date:2018 05/02/2018 CUONG Chowdhury Primary CUONG Short [id number] Insurance:MEDICARE SCHUBERTDOB: Community ALYSA PART A BPolicy Number: [id number], [place] [id number] Repository 268[address]Bzv: (264) Date:2009-04-05 [phone] () 05/02/2018 Secondary CUONG Chowdhury [place] Insurance:HUMANA SCHUBERTDOB: [facility] [id number] Hospital Number: Repository [id number] Date:4704-56-76HL [address] [address]NE: 05/02/2018 Tertiary NOT GIVENUNK [place] Insurance:SELF PAY [facility] Number: Effective Repository Date:2018-04-05 2018 CUONG L Primary CUONG Chowdhury Han [id number] Insurance:MEDICARE SCHUBERTDOB: [facility] ALYSA PART A BPolicy Number: [id number], [place] [id number] Repository [address]87[address]Wzq: (301) Date:2018-04-088789 () 2018 Secondary CUONG Chowdhury [place] Insurance:HUMANA SCHUBERTDOB: Community COMMERCIALPolicy [id number] Hospital Number: Repository [id number] Date:5615-55-27HW [address] [place] [address]PO: 2018 Tertiary NOT GIVENUNK Han Insurance:SELF PAY [facility] Number: Effective Repository Date:2018-04-08 04/08/2018 CUONG L Primary CUONG Rojooster [id number] Insurance:MEDICARE SCHUBERTDOB: [facility] ALYSA PART A BPolicy Number: [id number], [place] [id number] Repository [address]Gnj: 330) Date:2018-04-049689 () 04/08/2018 Secondary CUONG Chowdhury [place] Insurance:HUMANA SCHUBERTDOB: [facility] [id number] Hospital Number: Repository [id number] Date:4906-17-62QL [address] [place] [address]YV: 04/08/2018 Tertiary NOT GIVENUNK [place] Insurance:SELF PAY [facility] Number: Effective Repository Date:2018-04-04 04/04/2018 CUONG L Primary CUONG Rojooster [id number] Insurance:MEDICARE SCHUBERTDOB: [facility] ALYSA PART A BPolicy Number: [id number], [place] [id number] Repository 74751Rjd: (386) Date:2009-04-05 [phone] () 04/04/2018 Secondary CUONG Chowdhury [place] Insurance:HUMANA SCHUBERTDOB: [facility] [id number] Hospital Number: Repository [id number] Date:1794-09-51QF [address] [place] [address]MH: 04/04/2018 Tertiary NOT GIVENUNK [place] Insurance:SELF PAY [facility] Number: Effective Repository Date:2018-03-06 04/03/2018 CUONG L Primary CUONG Chowdhury [place] [id number] Insurance:MEDICARE SCHUBERTDOB: [facility] ALYSA PART A BPolicy Number: [id number], [place] [id number] Repository [address]Vld: (457) Date:2018-03-244111 () 04/03/2018 Secondary CUONG L Han Insurance:HUMANA SCHUBERTDOB: [facility] [id number] Hospital Number: Repository [id number] Date:3126-15-67AP [address] [address]DP: 04/03/2018 Tertiary NOT GIVENUNK [place] Insurance:SELF PAY [facility] Number: Effective Repository Date:2018-03-24 03/28/2018 CUONG L Primary CUONG Chowdhury Han [id number] Insurance:MEDICARE SCHUBERTDOB: [facility] PART A BPolicy Number: [id number], [place] [id number] Repository [address]60[address]Aox: (975) Date:2018-03-269088 () 03/28/2018 Secondary CUONG Chowdhury [place] Insurance:HUMANA SCHUBERTDOB: [facility] [id number] Hospital Number: Repository [id number] Date:3453-74-98MD[address] [address]QL: 03/28/2018 Tertiary NOT GIVENUNK [place] Insurance:SELF PAY [facility] Number: Effective Repository Date:2018-03-26 03/25/2018 CUONG L Primary CUONG Chowdhury Han [id number] Insurance:MEDICARE SCHUBERTDOB: [facility] PART A BPolicy Number: [id number], [place] [id number] Repository 74777Frc: 330) Date:2009-04-056890 () 03/25/2018 Secondary CUONG L Han Insurance:HUMANA SCHUBERTDOB: [facility] [id number] Hospital Number: Repository [id number] Date:3206-92-03WC [address] [place] [address]DF: 03/25/2018 Tertiary NOT GIVENUNK [place] Insurance:SELF PAY [facility] Number: Effective Repository Date:2018-03-25 03/14/2018 CUONG Chowdhury Primary CUONG Short [id number] Insurance:MEDICARE SCHUBERTDOB: Community [facility]YSA PART A BPolicy Number: [id number], [place] [id number] Repository 105[address]Vln: (284) Date:2018-02-28 [phone] () 03/14/2018 Secondary CUONG Chowdhury [place] Insurance:HUMANA SCHUBERTDOB: [facility] [id number] Hospital Number: Repository [id number] Date:5695-77-65NS [address] [address]PZ: 03/14/2018 Tertiary NOT GIVENUNK [place] Insurance:SELF PAY [facility] Number: Effective Repository Date:2018-02-28 02/28/2018 CUONG L Primary CUONG Rojooster [id number] Insurance:MEDICARE SCHUBERTDOB: Community [facility]YSA PART A BPolicy Number: [id number], [place] [id number] Repository [address]Exf: (003) Date:2009-04-05 [phone] () 02/28/2018 Secondary CUONG Chowdhury [place] Insurance:HUMANA SCHUBERTDOB: [facility] COMMERCIALPolicy [id number] Hospital Number: Repository [id number] Date:4105-86-21TU [address] [address]CV: 02/28/2018 Tertiary NOT GIVENUNK [place] Insurance:SELF PAY [facility] Number: Effective Repository Date:2018-02-03 02/28/2018 CUONG L Primary CUONG Short [id number] Insurance:MEDICARE SCHUBERTDOB: [facility] ALYSA PART A olicy Number: [id number], [place] [id number] Repository 27369Znz: (330) Date:2018-02-146716 () 02/28/2018 Secondary CUONG Chowdhury [place] Insurance:HUMANA SCHUBERTDOB: [facility] COMMERCIALPolicy [id number] Hospital Number: Repository [id number] Date:8714-86-90JS [address] [address]QX: 02/28/2018 Tertiary NOT GIVENUNK [place] Insurance:SELF PAY [facility] Number: Effective Repository Date:2018-02-14 02/27/2018 CUONG L Primary CUONG Chowdhury Han [id number] Insurance:MEDICARE SCHUBERTDOB: [facility] ALYSA PART A BPolicy Number: [id number], [place] [id number] Repository [address]Vpv: (330) Date:2018-02-263784 () 02/27/2018 Secondary CUONG Chowdhury [place] Insurance:HUMANA SCHUBERTDOB: [facility] [id number] Hospital Number: Repository [id number] Date:5512-63-18TM [address] [address]HT: 02/27/2018 Tertiary NOT GIVENUNK [place] Insurance:SELF PAY [facility] Number: Effective Repository Date:2018-02-26 02/24/2018 CUONG L Primary CUONG Chowdhury [place] [id number] Insurance:MEDICARE SCHUBERTDOB: [facility] ALYSA PART A BPolicy Number: [id number], [place] [id number] Repository 106[address]Xqh: (330) Date:2018-02-146079 () 02/24/2018 Secondary CUONG Chowdhury [place] Insurance:HUMANA SCHUBERTDOB: [facility] [id number] Hospital Number: Repository [id number] Date:5030-02-55AS [address] [address]DO: 02/24/2018 Tertiary NOT GIVENUNK [place] Insurance:SELF PAY [facility] Number: Effective Repository Date:2018-02-14 02/21/2018 CUONG L Primary CUONG Chowdhury Han [id number] Insurance:MEDICARE SCHUBERTDOB: [facility] ALYSA PART A olicy Number: [id number], [place] [id number] Repository 88[address]Nrk: (330) Date:2018-02-219594 () 02/21/2018 Secondary CUONG L Han Insurance:HUMANA SCHUBERTDOB: [facility] [id number] Hospital Number: Repository [id number] Date:0673-90-66XF [address] [address]SS: 02/21/2018 Tertiary NOT GIVENUNK [place] Insurance:SELF PAY [facility] Number: Effective Repository Date:2018-02-21 02/20/2018 CUONG L Primary CUONG Chowdhury [place] [id number] Insurance:MEDICARE SCHUBERTDOB: [facility] PART A olicy Number: [id number], [place] [id number] Repository 55569Xhn: (470) Date:2018-02-20 [phone] () 02/20/2018 Secondary CUONG L [place] Insurance:HUMANA SCHUBERTDOB: [facility] [id number] Hospital Number: Repository [id number] Date:4448-71-80DS [address] [address]OX: 02/20/2018 Tertiary NOT GIVENUNK [place] Insurance:SELF PAY [facility] Number: Effective Repository Date:2018-02-20 02/14/2018 CUONG L Primary CUONG Chowdhury [place] [id number] Insurance:MEDICARE SCHUBERTDOB: [facility] PART A olicy Number: [id number], [place] [id number] Repository 807[address]Emi: 330) Date:2018-01-31 [phone] () 02/14/2018 Secondary CUONG L [place] Insurance:HUMANA SCHUBERTDOB: [facility] [id number] Hospital Number: Repository [id number] Date:1812-59-47LY [address] [place] [address]ZE: 02/14/2018 Tertiary NOT GIVENUNK [place] Insurance:SELF PAY [facility] Number: Effective Repository Date:2018-01-31 01/31/2018 CUONG Chowdhury Primary CUONG Short [id number] Insurance:MEDICARE SCHUBERTDOB: Community ALYSA PART A BPolicy Number: [id number], [place] [id number] Repository 04509Lkj: (331) Date:2009-04-05 [phone] () 01/31/2018 Secondary CUONG Chowdhury [place] Insurance:HUMANA SCHUBERTDOB: [facility] [id number] Hospital Number: Repository [id number] Date:2273-46-43KN [address] [place] [address]BR: 01/31/2018 Tertiary NOT GIVENUNK [place] Insurance:SELF PAY [facility] Number: Effective Repository Date:2018-01-04 01/31/2018 CUONG L Primary CUONG Short [id number] Insurance:MEDICARE SCHUBERTDOB: Community ALYSA PART A BPolicy Number: [id number] [place] [address] [id number] Repository 929[address]Ibi: (667) Date:2018-01-17 [phone] () 01/31/2018 Secondary CUONG L [place] Insurance:HUMANA SCHUBERTDOB: [facility] [id number] Hospital Number: Repository [id number] Date:9699-98-56NV [address] [place] [address]JS: 01/31/2018 Tertiary NOT GIVENUNK [place] Insurance:SELF PAY [facility] Number: Effective Repository Date:2018-01-17 01/23/2018 CUONG L Primary CUONG Rojooster [id number] Insurance:MEDICARE SCHUBERTDOB: [facility] ALYSA PART A BPolicy Number: [id number] [place] [address] [id number] Repository 95406Cek: (330) Date:2009-04-052889 () 01/23/2018 Secondary CUONG Chowdhury [place] Insurance:HUMANA SCHUBERTDOB: Community COMMERCIALPolicy [id number] Hospital Number: Repository [id number] Date:0147-81-38ZK [address] [place] [address]FI: 01/23/2018 Tertiary NOT GIVENUNK [place] Insurance:SELF PAY [facility] Number: Effective Repository Date:2018-01-23 01/23/2018 CUONG L Primary CUONG Rojooster [id number] Insurance:MEDICARE SCHUBERTDOB: Community ALYSA PART A BPolicy Number: [id number], [place] [id number] Repository 16088Vrs: 330) Date:2009-04-055364 () 01/23/2018 Secondary CUONG Chowdhury [place] Insurance:HUMANA SCHUBERTDOB: [facility] [id number] Hospital Number: Repository [id number] Date:6627-01-52BA[address] [address]PC: 01/23/2018 Tertiary NOT GIVENUNK [place] Insurance:SELF PAY [facility] Number: Effective Repository Date:2018-01-23 01/20/2018 CUONG L Primary CUONG Chowdhury Han [id number] Insurance:MEDICARE SCHUBERTDOB: Community ALYSA PART A BPolicy Number: [id number], [place] [id number] Repository 78167Ebb: 330) Date:2018-01-205303 () 01/20/2018 Secondary CUONG Chowdhury [place] Insurance:HUMANA SCHUBERTDOB: [facility] [id number] Hospital Number: Repository [id number] Date:0166-98-33PX[address] [address]DA: 01/20/2018 Tertiary NOT GIVENUNK [place] Insurance:SELF PAY [facility] Number: Effective Repository Date:2018-01-20 01/17/2018 CUONG L Primary CUONG Chowdhury Han [id number] Insurance:MEDICARE SCHUBERTDOB: Community ALYSA PART A olicy Number: [id number], [place] [id number] Repository 27[address]Kgj: 330) Date:2017-12-276817 () 01/17/2018 Secondary CUONG L [place] Insurance:HUMANA SCHUBERTDOB: [facility] Center[facility] [id number] Hospital Number: Repository [id number] Date:5218-45-69SZ[address] [address]PL: 01/17/2018 Tertiary NOT GIVENUNK [place] Insurance:SELF PAY [facility] Number: Effective Repository Date:2017-12-27 01/10/2018 CUONG L Primary CUONG Chowdhury Han [id number] Insurance:MEDICARE SCHUBERTDOB: [facility] ALYSA PART A olicy Number: [id number], [place] [id number] Repository 63748Lvk: (253) Date:2018-01-031787 () 01/10/2018 Secondary CUONG Chowdhury [place] Insurance:HUMANA SCHUBERTDOB: [facility] [id number] [place] [address] Number: Repository [id number] Date:7737-40-56SO [address] [address]EE: 01/10/2018 Tertiary NOT GIVENUNK [place] Insurance:SELF PAY [facility] Number: Effective Repository Date:2018-01-03 01/03/2018 CUONG L Primary CUONG Chowdhury Han [id number] Insurance:MEDICARE SCHUBERTDOB: Community ALYSA PART A olicy Number: [id number] [place] [address] [id number] Repository 64951Huy: 330) Date:2009-04-058778 () 01/03/2018 Secondary CUONG L Han Insurance:HUMANA SCHUBERTDOB: [id number] Number: Repository [id number] Date:5711-53-42SO[address] [address]JT: 01/03/2018 Tertiary NOT GIVENUNK [place] Insurance:SELF PAY [facility] [address] [facility] Number: Effective Repository Date:2017-12-04 01/03/2018 CUONG Chowdhury Primary CUNOG Short [id number] Insurance:MEDICARE SCHUBERTDOB: Community ALYSA PART A BPolicy Number: [id number], [place] [id number] Repository [address]Ehs: (451) Date:2018-01-03 [phone] () 01/03/2018 Secondary CUONG Chowdhury [place] Insurance:HUMANA SCHUBERTDOB: [facility] [id number] Hospital Number: Repository [id number] Date:1494-04-35FC [address] [address]CB: 01/03/2018 Tertiary [place] GIVENUNK [place] Insurance:SELF PAY [facility] Number: Effective Repository Date:2018-01-03 12/27/2017 CUONG Chowdhury Primary CUONG Short [id number] Insurance:MEDICARE SCHUBERTDOB: Community ALYSA PART A BPolicy Number: [id number], [place] [id number] Repository [address]Jaw: (580) Date:2017-12-132786 () 12/27/2017 Secondary CUONG Chowdhury [place] Insurance:HUMANA SCHUBERTDOB: [facility] Centericy [id number] Hospital Number: Repository [id number] Date:4981-29-47WF[address] [address]OU: 12/27/2017 Tertiary NOT GIVENUNK [place] Insurance:SELF PAY [facility] Number: Effective Repository Date:2017-12-13 12/13/2017 CUONG L Primary CUONG Rojooster [id number] Insurance:MEDICARE SCHUBERTDOB: Community ALYSA PART A BPolicy Number: [id number] [place] [address] [id number] Repository 164[address]Wfs: (330) Date:2017-11-29-0841 (HP) 12/13/2017 Secondary CUONG Short Insurance:HUMANA SCHUBERTDOB: [facility] [id number] Hospital Number: Repository [id number] Date:0708-07-55TA [address] [place] [address]DE: 12/13/2017 Tertiary NOT GIVENUNK [place] Insurance:SELF PAY [facility] [address] Number: Effective Repository Date:2017-11-29 12/12/2017 CUONG Chowdhury Primary CUONG Chowdhury [facility] CenterUB[facility]: Insurance:MEDICARE A [facility]: [place] [id number] AND BPolicy Number: [id number] [facility] [id number] [address] [place], [place] Date:9094-09-43Xhod [place], [place] Repository [address]Nxp: (330) Name:CARE 24146Psj: (HP) -5628 () 12/12/2017 Secondary CUONG Chowdhury [facility] Insurance:[facility]ANNich[facility] Noyes [facility] HospitalTDOB: [place] Number: [id number] [facility] [id number] [address] [place] [address] Date:6631-00-94Hkcr [place] Repository Name:MANAGED CARE 46915Jfu: () 12/12/2017 CUONG Chowdhury Primary CUONG Chowdhury [facility] SystemUBERTDOB: Insurance:MEDICARE [facility]OS[facility]ITALTDOB: [facility] [id number] PART BPolicy Number: [id number] Repository [place] [id number] 9 [place], [place] Date:2017-12-12 - [place] [address]~EMWXRI86@ 0274-11-79Imzd 73382Lnq: (507) Rex: Name:[facility] [phone] Administrators LLCPO (HP)Tel: (000) (HP)Tel: (999) [address] [address], [place] 000[address] (WP) [phone] () 34644AO: 12/12/2017 Secondary CUONG [facility] Insurance:HUMANA SCHUBERTDOB: [facility] [id number] Repository Number: [address] [id number] [place] Date:2017-12-12 [address]Veq: (349) 8349-3611-01-22Dopu 2614 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 PART A BPolicy Number: [id number], [place] [id number] Repository [address]Iuw: 330) Date:2009-04-050372 () 12/02/2017 Secondary CUONG L [place] Insurance:HUMANA SCHUBERTDOB: [facility] [id number] Hospital Number: Repository [id number] Date:0235-88-52FS[address] [address]WU: 12/02/2017 Tertiary NOT GIVENUNK [place] Insurance:SELF PAY [facility] Number: Effective Repository Date:2017-11-03 11/29/2017 CUONG L Primary CUONG Short [id number] Insurance:MEDICARE SCHUBERTDOB: [facility] PART A BPolicy Number: [id number], [place] [id number] Repository [address]Hnx: 330) Date:2017-11-154964 () 11/29/2017 Secondary CUONG L [place] Insurance:HUMANA SCHUBERTDOB: [facility] [id number] Hospital Number: Repository [id number] Date:7120-98-47YT[address] [address]ED: 11/29/2017 Tertiary NOT GIVENUNK [place] Insurance:SELF PAY [facility] Number: Effective Repository Date:2017-11-15 11/28/2017 CUONG Chowdhury Primary CUONG Chowdhury [facility] SCHUBERTDOB: Insurance:MEDICARE A SCHUBERTDOB: University [id number] AND BPolicy Number: [id number] [facility] [id number] [address] [place] [address] Date:7957-82-48Nwiw [place] Repository [address]Vdp: (059) Name:CARE 10752Yiw: () [phone] () 11/28/2017 Secondary CUONG Chowdhury [facility] Insurance:HUMANAPolicy SCHUBERTDOB: University Number: [id number] [facility] [id number] [address] [place] [address] Date:1951-95-55Cvxw [place] Repository Name:MANAGED CARE 50712Tsw: () 11/27/2017 CUONG Chowdhury Primary CUONG Short [id number] Insurance:MEDICARE SCHUBERTDOB: Community ALYSA PART A BPolicy Number: [id number], [place] [id number] Repository [address]Faf: 330) Date:2017-11-19 [phone] () 11/27/2017 Secondary CUONG Chowdhury [place] Insurance:HUMANA SCHUBERTDOB: [facility] [id number] Hospital Number: Repository [id number] Date:3291-89-23RS[address] [address]RF: 11/27/2017 Tertiary NOT GIVENUNK [place] Insurance:SELF PAY [facility] Number: Effective Repository Date:2017-11-19 11/27/2017 CUONG Chowdhury Primary CUONG Short [id number] Insurance:MEDICARE SCHUBERTDOB: Community ALYSA PART A BPolicy Number: [id number], [place] [id number] Repository [address]Kbi: (904) Date:2009-04-052398 (HP) 11/27/2017 Secondary CUONG L Han Insurance:HUMANA SCHUBERTDOB: [facility]CIALGeising[facility]oms[facility] Hospitaly [id number] Hospital Number: Repository [id number] Date:3216-37-52GY[address] [address]LQ: 11/27/2017 Tertiary NOT GIVENUNK [place] Insurance:SELF PAY [facility] Number: Effective Repository Date:2017-11-27 11/27/2017 CUONG L Primary CUONG Chowdhury [place] [id number] Insurance:MEDICARE SCHUBERTDOB: Community ALYSA PART A BPolicy Number: [id number], [place] [id number] Repository [address]45[address]Qts: (330) Date:2009-04-058635 () 11/27/2017 Secondary CUONG L Han Insurance:HUMANA SCHUBERTDOB: [facility] [id number] Hospital Number: Repository [id number] Date:1682-75-44EY[address] [address]JS: 11/27/2017 Tertiary NOT GIVENUNK [place] Insurance:SELF PAY [facility] Number: Effective Repository Date:2017-11-27 11/19/2017 CUONG L Primary CUONG Chowdhury [place] [id number] Insurance:MEDICARE SCHUBERTDOB: [facility] ALYSA PART A BPolicy Number: [id number], [place] [id number] Repository 110[address]Sxj: (330) Date:2017-08-27 [phone] () 11/19/2017 Secondary CUONG L [place] Insurance:HUMANA SCHUBERTDOB: [facility] [id number] Hospital Number: Repository [id number] Date:5143-54-09CW[address] [address]CN: 11/19/2017 Tertiary NOT GIVENUNK [place] Insurance:SELF PAY [facility] Number: Effective Repository Date:2017-11-19 11/15/2017 CUONG L Primary CUONG Chowdhury Han [id number] Insurance:MEDICARE SCHUBERTDOB: Community ALYSA PART A BPolicy Number: [id number], [place] [id number] Repository 860[address]Xut: 330) Date:2017-11-01 [phone] () 11/15/2017 Secondary CUONG L [place] Insurance:HUMANA SCHUBERTDOB: [facility] [id number] Hospital Number: Repository [id number] Date:5668-87-83TF[address] [address]LP: 11/15/2017 Tertiary NOT GIVENUNK [place] Insurance:SELF PAY [facility] Number: Effective Repository Date:2017-11-01 11/01/2017 CUONG L Primary CUONG Chowdhury Han [id number] Insurance:MEDICARE SCHUBERTDOB: [facility] ALYSA PART A BPolicy Number: [id number], [place] [id number] Repository 25872Ftm: 330) Date:2009-04-05 [phone] () 11/01/2017 Secondary CUONG Chowdhury [place] Insurance:HUMANA SCHUBERTDOB: [facility] [id number] Hospital Number: Repository [id number] Date:5588-29-70ES[address] [address]WE: 11/01/2017 Tertiary NOT GIVENUNK [place] Insurance:SELF PAY [facility] Number: Effective Repository Date:2017-10-04 11/01/2017 CUONG L Primary CUONG Chowdhury [place] [id number] Insurance:MEDICARE SCHUBERTDOB: [facility] ALYSA PART A BPolicy Number: [id number], [place] [id number] Repository [address]Sva: 330) Date:2017-10-165109 () 11/01/2017 Secondary CUONG L [place] Insurance:HUMANA SCHUBERTDOB: [facility] [id number] Hospital Number: Repository [id number] Date:7273-13-26JI [address] [place] [address]PR: 11/01/2017 Tertiary NOT GIVENUNK [place] Insurance:SELF PAY [facility] Number: Effective Repository Date:2017-10-16 10/16/2017 CUONG Chowdhury Primary CUONG Short [id number] Insurance:MEDICARE SCHUBERTDOB: Community ALYSA PART A BPolicy Number: [id number], [place] [id number] Repository [address]Sfk: (572) Date:2017-10-01 [phone] () 10/16/2017 Secondary CUONG Chowdhury [place] Insurance:HUMANA SCHUBERTDOB: [facility] [id number] Hospital Number: Repository [id number] Date:9276-82-58PD [address] [place] [address]KZ: 10/16/2017 Tertiary NOT GIVENUNK [place] Insurance:SELF PAY [facility] Number: Effective Repository Date:2017-10-01 10/09/2017 CUONG L Primary CUONG Short [id number] Insurance:MEDICARE SCHUBERTDOB: Community ALYSA PART A BPolicy Number: [id number], [place] [id number] Repository 150[address]Zpp: (094) Date:2009-04-05 [phone] () 10/09/2017 Secondary CUONG Chowdhury [place] Insurance:HUMANA SCHUBERTDOB: [facility] [id number] Hospital Number: Repository [id number] Date:7055-83-09GS [address] [place] [address]MX: 10/09/2017 Tertiary NOT GIVENUNK [place] Insurance:SELF PAY [facility] Number: Effective Repository Date:2017-10-09 10/02/2017 CUONG L Primary CUONG Chowdhury [place] [id number] Insurance:MEDICARE SCHUBERTDOB: Community ALYSA PART A BPolicy Number: [id number], [place] [id number] Repository 675[address]Doc: (756) Date:2009-04-050469 () 10/02/2017 Secondary CUONG Chowdhury [place] Insurance:HUMANA SCHUBERTDOB: Community COMM[facility]CIALB[facility] Cardon Children[facility] Medical Centericy [id number] Hospital Number: Repository [id number] Date:5235-35-34OH[address] [address]JF: 10/02/2017 Tertiary NOT GIVENUNK [place] Insurance:SELF PAY [facility] Number: Effective Repository Date:2017-09-03 10/02/2017 CUONG L Primary CUONG Chowdhury [place] [id number] Insurance:MEDICARE SCHUBERTDOB: [facility] ALYSA PART A olicy Number: [id number], [place] [id number] Repository 05852Awb: 330) Date:2009-04-058682 () 10/02/2017 Secondary CUONG Chowdhury [place] Insurance:HUMANA SCHUBERTDOB: [facility] [id number] Hospital Number: Repository [id number] Date:2770-09-25ZP[address] [address]XA: 10/02/2017 Tertiary NOT GIVENUNK [place] Insurance:SELF PAY [facility] Number: Effective Repository Date:2017-10-02 10/01/2017 CUONG Chowdhury Primary CUONG Chowdhury [place] [id number] Insurance:MEDICARE SCHUBERTDOB: [facility] ALYSA PART A BPolicy Number: [id number], [place] [id number] Repository 317[address]Wjb: (659) Date:2017-09-179578 () 10/01/2017 Secondary CUONG Chowdhury [place] Insurance:HUMANA SCHUBERTDOB: [facility] [id number] Hospital Number: Repository [id number] Date:7957-23-85IO [address] [address]QV: 10/01/2017 Tertiary NOT GIVENUNK [place] Insurance:SELF PAY [facility] Number: Effective Repository Date:2017-09-17 09/25/2017 CUONG L Primary CUONG Rojooster [id number] Insurance:MEDICARE SCHUBERTDOB: Community ALYSA PART A BPolicy Number: [id number], [place] [id number] Repository [address]Fjt: 330) Date:2009-04-056905 () 09/25/2017 Secondary CUONG L Han Insurance:HUMANA SCHUBERTDOB: [facility] [id number] Hospital Number: Repository [id number] Date:4123-58-54ON [address] [address]BC: 09/25/2017 Tertiary NOT GIVENUNK [place] Insurance:SELF PAY [facility] Number: Effective Repository Date:2017-09-25 09/25/2017 CUONG L Primary CUONG Short [id number] Insurance:MEDICARE SCHUBERTDOB: [facility] ALYSA PART A BPolicy Number: [id number], [place] [id number] Repository [address]Fxp: 330) Date:2009-04-050066 () 09/25/2017 Secondary CUONG Chowhdury [place] Insurance:HUMANA SCHUBERTDOB: [facility] [id number] Hospital Number: Repository [id number] Date:0854-26-58BN[address] [address]QQ: 09/25/2017 Tertiary NOT GIVENUNK [place] Insurance:SELF PAY [facility] Number: Effective Repository Date:2017-09-25 09/18/2017 CUONG L Primary CUONG Short [id number] Insurance:MEDICARE SCHUBERTDOB: [facility] ALYSA PART A BPolicy Number: [id number], [place] [id number] Repository 166[address]Tsw: 330) Date:2009-04-051530 () 09/18/2017 Secondary CUONG L [place] Insurance:HUMANA SCHUBERTDOB: [facility] [id number] Hospital Number: Repository [id number] Date:9169-48-91UU [address] [place] [address]KA: 09/18/2017 Tertiary NOT GIVENUNK [place] Insurance:SELF PAY [facility] Number: Effective Repository Date:2017-09-18 09/17/2017 CUONG Chowdhury Primary CUONG Short [id number] Insurance:MEDICARE SCHUBERTDOB: Community ALYSA PART A BPolicy Number: [id number], [place] [id number] Repository 08694Fgg: (235) Date:2017-09-03 [phone] () 09/17/2017 Secondary CUONG Chowdhury [place] Insurance:HUMANA SCHUBERTDOB: [facility] [id number] Hospital Number: Repository [id number] Date:0343-77-83UU[address] [address]TO: 09/17/2017 Tertiary NOT GIVENUNK [place] Insurance:SELF PAY [facility] Number: Effective Repository Date:2017-09-03 09/11/2017 CUONG L Primary CUONG Chowdhury Han [id number] Insurance:MEDICARE SCHUBERTDOB: Community ALYSA PART A BPolicy Number: [id number], [place] [id number] Repository [address]Dzu: (845) Date:2009-04-05 [phone] () 09/11/2017 Secondary CUONG Chowdhury [place] Insurance:HUMANA SCHUBERTDOB: [facility] [id number] Hospital Number: Repository [id number] Date:7043-82-21UU[address] [address]GH: 09/11/2017 Tertiary NOT GIVENUNK [place] Insurance:SELF PAY [facility] Number: Effective Repository Date:2017-09-11 09/05/2017 CUONG L Primary CUONG Chowdhury Han [id number] Insurance:MEDICARE SCHUBERTDOB: Community ALYSA PART A BPolicy Number: [id number], [place] [id number] Repository 240[address]Mkr: (877) Date:2009-04-05 [phone] (HP) 09/05/2017 Secondary CUONG Chowdhury [place] Insurance:HUMANA SCHUBERTDOB: Community COMMERCIALPolicy [id number] Hospital Number: Repository [id number] Date:3214-78-50XK [address] [place] [address]AK: 09/05/2017 Tertiary NOT GIVENUNK [place] Insurance:SELF PAY [facility] Hospital Number: Effective Repository Date:2017-09-05 09/03/2017 CUONG L Primary CUONG Chowdhury Han [id number] Insurance:MEDICARE SCHUBERTDOB: [facility] ALYSA PART A BPolicy Number: [id number], [place] [id number] Repository [address]48[address]Tau: 330) Date:2017-08-20 [phone] () 09/03/2017 Secondary CUONG Chowdhury [place] Insurance:HUMANA SCHUBERTDOB: [facility] [id number] Hospital Number: Repository [id number] Date:8256-32-83IQ [address] [place] [address]RR: 09/03/2017 Tertiary NOT GIVENUNK [place] Insurance:SELF PAY [facility] Number: Effective Repository Date:2017-08-20 08/30/2017 CUONG L Primary CUONG Rojooster [id number] Insurance:MEDICARE SCHUBERTDOB: [facility] ALYSA PART A BPolicy Number: [id number], [place] [id number] Repository 94[address]Mdc: (028) Date:2017-08-30 [phone] () 08/30/2017 Secondary CUONG Chowdhury [place] Insurance:HUMANA SCHUBERTDOB: [facility] [id number] Hospital Number: Repository [id number] Date:2217-58-24UL [address] [place] [address]LM: 08/30/2017 Tertiary NOT GIVENUNK [place] Insurance:SELF PAY [facility] Number: Effective Repository Date:2017-08-30 08/29/2017 CUONG Chowdhury Primary CUONG Chowdhury [facility] SCHUBERTDOB: Insurance:MEDICARE A SCHUBERTDOB: [place] [id number] AND BPolicy Number: [id number] [facility] [id number] [address] [place] [address] Date:7653-70-17Hhfp [place], [place] Repository [address]Sol: (330) Name:CARE 94774Nof: () [phone] () 08/29/2017 Secondary CUONG Chowdhury [facility] Insurance:HUMANAPolicy SCHUBERTDOB: University Number: [id number] [facility] [id number] [address] [place] [address] Date:8430-10-18Luxc [place] Repository Name:MANAGED CARE 35222Ola: () 08/28/2017 CUONG Chowdhury Primary CUONG Short [id number] Insurance:MEDICARE SCHUBERTDOB: [facility] ALYSA PART A BPolicy Number: [id number] Quinta, [place] [id number] Repository 31716Qsg: 330) Date:2009-04-054606 () 08/28/2017 Secondary CUONG Rojooster Insurance:HUMANA SCHUBERTDOB: [facility] [id number] Hospital Number: Repository [id number] Date:1718-13-12NV[address] [address]DA: 08/28/2017 Tertiary NOT GIVENUNK [place] Insurance:SELF PAY [facility] Hospital Number: Effective Repository Date:2017-08-04 08/28/2017 CUONG Chowdhury Primary CUONG Short [id number] Insurance:MEDICARE SCHUBERTDOB: [facility] ALYSA PART A BPolicy Number: [id number], [place] [id number] Repository 37444Yly: 330) Date:2009-04-059023 () 08/28/2017 Secondary CUONG L [place] Insurance:HUMANA SCHUBERTDOB: Community COMMERCIALPolicy [id number] Hospital Number: Repository [id number] Date:6432-66-12OG [address] [address]BV: 08/28/2017 Tertiary NOT GIVENUNK [place] Insurance:SELF PAY [facility] Hospital Number: Effective Repository Date:2017-08-28 08/27/2017 CUONG L Primary UCONG Short [id number] Insurance:MEDICARE SCHUBERTDOB: Community ALYSA PART A BPolicy Number: [id number] Quinta, [place] [id number] Repository 25969Ftm: (691) Date:2017-07-03 [phone] () 08/27/2017 Secondary CUONG L Han Insurance:HUMANA SCHUBERTDOB: Community COMMERCIALPolicy [id number] Hospital Number: Repository [id number] Date:8570-17-34FY [address] [address]GH: 08/27/2017 Tertiary NOT GIVENUNK [place] Insurance:SELF PAY [facility] Hospital Number: Effective Repository Date:2017-08-27 08/26/2017 Cuong L Primary Cuong Short [id number] Insurance:MEDICARE SchubertDOB: Community [place] PART A BPolicy Number: [id number] [place], [place] [id number] Repository 340[address]Fnc: (384) Date:2017-08-265654 () 08/26/2017 Secondary Cuong L Han Insurance:HUMANA SchubertDOB: Community COMMERCIALPolicy [id number] Hospital Number: Repository [id number] Date:1138-11-15VT [address] [address]ZU: 08/26/2017 Tertiary NOT GIVENUNK [place] Insurance:SELF PAY [facility] Hospital Number: Effective Repository Date:2017-08-26 08/22/2017 Cuong L Primary Cuong Short [id number] Insurance:MEDICARE SchubertDOB: Community Alysa PART A BPolicy Number: [id number] Diego, [place] [id number] Repository 91471Ctj: (690) Date:2017-08-224713 () 08/22/2017 Secondary Cuong Chowdhury Han Insurance:HUMANA SchubertDOB: Community COMMERCIALPolicy [id number] Hospital Number: Repository [id number] Date:0044-77-76MQ[address] [address]XT: 08/22/2017 Tertiary NOT GIVENUNK [place] Insurance:SELF PAY [facility] Number: Effective Repository Date:2017-08-22 08/21/2017 CUONG Chowdhury Primary CUONG Short [id number] Insurance:MEDICARE SCHUBERTDOB: Community ALYSA PART A BPolicy Number: [id number], [place] [id number] Repository 326[address]Axb: (376) Date:2009-04-052477 () 08/21/2017 Secondary CUONG Chowdhury [place] Insurance:HUMANA SCHUBERTDOB: Community COMMERCIALPolicy [id number] Hospital Number: Repository [id number] Date:2393-11-55UY[address] [address]BZ: 08/21/2017 Tertiary NOT GIVENUNK [place] Insurance:SELF PAY [facility] Hospital Number: Effective Repository Date:2017-08-21 08/20/2017 Cuong L Primary Cuong Short [id number] Insurance:MEDICARE SchubertDOB: Community Alysa PART A BPolicy Number: [id number] [place], [place] [id number] Repository 30396Ehy: (730) Date:2017-08-208431 () 08/20/2017 Secondary Cuong Chowdhury [place] Insurance:HUMANA SchubertDOB: [id number] Number: Repository [id number] Date:[id number] [address] [address]SR: 08/20/2017 Tertiary NOT GIVENUNK Han Insurance:SELF PAY [facility]: Effective Repository Date:2017-08-20 08/14/2017 Cuong Chowdhury Primary Cuong Short [id number] Insurance:MEDICARE SchubertDOB: Community [place] PART A BPolicy Number: [id number] [place], [place] [id number] Repository 65861Hxg: (330) Date:2017-07-191080 () 08/14/2017 Secondary Cuong Chowdhury [place] Insurance:HUMANA SchubertDOB: Community COMMERCIALPolicy [id number] Hospital Number: Repository [id number] Date:9244-73-47XR[address] [address]HI: 08/14/2017 Tertiary NOT GIVENUNK [place] Insurance:SELF PAY [facility] Number[facility] Effective Repository Date:2017-08-04 08/07/2017 Cuong L Primary Cuong Rojooster [id number] Insurance:MEDICARE SchubertDOB: Community [place] PART A BPolicy Number: [id number] [place] [id number] Repository 32990Ebh: 330) Date:2009-04-05 [id number] () 08/07/2017 Secondary Cuong Chowdhury [place] Insurance:HUMANA SchubertDOB: [facility] [id number] Hospital Number: Repository [id number] Date:0049-54-72NV[address] [address]TT: 08/07/2017 Tertiary NOT GIVENUNK [place] Insurance:SELF PAY [facility] Number: Effective Repository Date:2017-08-07 08/06/2017 Cuong Chowdhury Primary Cuong Short [id number] Insurance:MEDICARE SchubertDOB: Community [place] PART A BPolicy Number: [id number] [place], [place] [id number] Repository 39424Tkk: (330) Date:2017-07-236485 () 08/06/2017 Secondary Cuong Chowdhury [place] Insurance:HUMANA SchubertDOB: Community COMMERCIALPolicy [id number] Hospital Number: Repository [id number] Date:9814-21-69NZ[address] [address]SC: 08/06/2017 Tertiary NOT GIVENUNK [place] Insurance:SELF PAY [facility] Number: Effective Repository Date:2017-07-23 08/02/2017 Cuong Chowdhury Primary Cuong Short [id number] Insurance:MEDICARE SchubertDOB: Community [place] PART A BPolicy Number: [id number] [place], [place] [id number] Repository 71105Blq: (011) Date:2009-04-05 [id number] () 08/02/2017 Secondary Cuong Chowdhury [place] Insurance:HUMANA SchubertDOB: Community COMMERCIALPolicy [id number] Hospital Number: Repository [id number] Date:8067-31-43TD[address] [address]ZP: 08/02/2017 Tertiary NOT GIVENUNK [place] Insurance:SELF PAY [facility] Number: Effective Repository Date:2017-07-04 07/30/2017 Cuong Chowdhury Primary Cuong Short [id number] Insurance:MEDICARE SchubertDOB: Community [place] PART A BPolicy Number: [id number] [place], [place] [id number] Repository 03942Lfp: 330) Date:2017-07-19 [id number] () 07/30/2017 Secondary Cuong Chowdhury [place] Insurance:HUMANA SchubertDOB: Community COMMERCIALPolicy [id number] Hospital Number: Repository [id number] Date:1863-74-29RP[address] [address]PJ: 07/30/2017 Tertiary NOT GIVENUNK [place] Insurance:SELF PAY [facility] Number: Effective Repository Date:2017-07-19 07/24/2017 Cuong L Primary Cuong Rojooster [id number] Insurance:MEDICARE SchubertDOB: Community [place] PART A BPolicy Number: [id number] Diego, [place] [id number] Repository 71819Kns: (330) Date:2017-07-242515 () 07/24/2017 Secondary Cuong Chowdhury [place] Insurance:HUMANA SchubertDOB: Community COMMERCIALPolicy [id number] Hospital Number: Repository [id number] Date:1521-66-17AY[address] [address]MN: 07/24/2017 Tertiary NOT GIVENUNK [place] Insurance:SELF PAY [facility] Number: Effective Repository Date:2017-07-24 07/24/2017 Cuong Chowdhury Primary Cuong Short [id number] Insurance:MEDICARE SchubertDOB: [place] PART A BPolicy Number: [id number] [place], [place] [id number] Repository 80588Ytr: 330) Date:2017-07-129373 () 07/24/2017 Secondary Cuong L [place] Insurance:HUMANA SchubertDOB: [facility] [id number] Hospital Number: Repository [id number] Date:4520-96-38OU[address] [address]DG: 07/24/2017 Tertiary NOT GIVENUNK [place] Insurance:SELF PAY [facility] Number: Effective Repository Date:2017-07-12 07/23/2017 Cuong L Primary Cuong Rojooster [id number] Insurance:MEDICARE SchubertDOB: Community [place] PART A BPolicy Number: [id number] [place], [place] [id number] Repository 21998Lzw: 330) Date:2017-07-118262 () 07/23/2017 Secondary Cuong L [place] Insurance:HUMANA SchubertDOB: [facility] COMMERCIALPolicy [id number] Hospital Number: Repository [id number] Date:5265-86-76CG[address] [address]CD: 07/23/2017 Tertiary NOT GIVENUNK [place] Insurance:SELF PAY [facility] Number: Effective Repository Date:2017-07-11 07/22/2017 Cuong Chowdhury Primary Cuong Short [id number] Insurance:MEDICARE SchubertDOB: [place] PART A BPolicy Number: [id number] [place], [place] [id number] Repository 99564Drg: (330) Date:2017-07-228388 () 07/22/2017 Secondary Cuong Chowdhury [place] Insurance:HUMANA SchubertDOB: [facility] [id number] Hospital Number: Repository [id number] Date:5366-17-03IO[address] [address]IV: 07/22/2017 Tertiary NOT GIVENUNK [place] Insurance:SELF PAY [facility] Number: Effective Repository Date:2017-07-22 07/17/2017 Cuong Chowdhury Primary Cuong Rojooster [id number] Insurance:MEDICARE SchubertDOB: [place] PART A BPolicy Number: [id number] [place], [place] [id number] Repository 25416Yoz: 330) Date:2017-07-173459 () 07/17/2017 Secondary Cuong Chowdhury [place] Insurance:HUMANA SchubertDOB: [facility] [id number] Hospital Number: Repository [id number] Date:5735-15-99NU[address] [address]EK: 07/17/2017 Tertiary NOT GIVENUNK [place] Insurance:SELF PAY [facility] Number: Effective Repository Date:2017-07-17 07/17/2017 Cuong Chowdhury Primary Cuong Rojooster [id number] Insurance:MEDICARE SchubertDOB: [place] PART A BPolicy Number: [id number] [place], [place] [id number] Repository 41767Wxf: (330) Date:2017-07-17585 () 07/17/2017 Secondary Cuong L [place] Insurance:HUMANA SchubertDOB: Community COMMERCIALPolicy [id number] Hospital Number: Repository [id number] Date:2914-14-70AW[address] [address]XF: 07/17/2017 Tertiary NOT GIVENUNK [place] Insurance:SELF PAY [facility] Number: Effective Repository Date:2017-07-17 07/16/2017 Cuong L Primary Cuong Chowdhury [place] [id number] Insurance:MEDICARE SchubertDOB: [place] PART A BPolicy Number: [id number] [place], [place] [id number] Repository 03554Gna: (179) Date:2017-07-16 [phone] () 07/16/2017 Secondary Cuong L [place] Insurance:HUMANA SchubertDOB: [facility] [id number] Hospital Number: Repository [id number] Date:2065-73-83SP[address] [address]QI: 07/16/2017 Tertiary NOT GIVENUNK [place] Insurance:SELF PAY [facility] Number: Effective Repository Date:2017-07-16 07/04/2017 Cuong L Primary Cuong Rojooster [id number] Insurance:MEDICARE SchubertDOB: [place] PART A BPolicy Number: [id number] [place], [place] [id number] Repository 08178Iuy: 330) Date:2017-07-049202 () 07/04/2017 Secondary Cuong L [place] Insurance:HUMANA SchubertDOB: [facility] COMMERCIALPolicy [id number] Hospital Number: Repository [id number] Date:3818-81-59SJ[address] [address]TG: 07/04/2017 Tertiary NOT GIVENUNK [place] Insurance:SELF PAY [facility] Number: Effective Repository Date:2017-07-04 06/26/2017 CUONG L Primary CUONG L [facility] SCHUBERTDOB: Insurance:MEDICARE A SCHUBERTDOB: [place] [id number] AND BPolicy Number: [id number] [facility] [id number] [address] [place] [address] Date:6823-89-51Guhc [place] Repository 16797Rdn: (645) Name:CARE [id number]: (HP) [phone] () 06/26/2017 Secondary CUONG Chowdhury [facility] Insurance:HUMANAPolicy SCHUBERTDOB: University Number: [id number] [facility] [id number] [address] [place] [address] Date:5307-37-28Ctrk [place] Repository Name:MANAGED CARE 59270Ita: () 06/21/2017 Cuong L Primary Cuong Short [id number] Insurance:MEDICARE SchubertDOB: [facility] PART A BPolicy Number: [id number] [place], [place] [id number] Repository 45909Nqs: (330) Date:2017-06-216481 () 06/21/2017 Secondary Cuong L [place] Insurance:HUMANA SchubertDOB: [facility] [id number] Hospital Number: Repository [id number] Date:7332-26-55QI [address] [place] [address]AM: 06/21/2017 Tertiary NOT GIVENUNK [place] Insurance:SELF PAY [facility] Number: Effective Repository Date:2017-06-21 06/21/2017 Cuong L Primary Cuong Short [id number] Insurance:MEDICARE SchubertDOB: [facility] PART A BPolicy Number: [id number] [place], [place] [id number] Repository 18886Sww: 330) Date:2017-06-212247 () 06/21/2017 Secondary Cuong L [place] Insurance:HUMANA SchubertDOB: [facility] [id number] Hospital Number: Repository [id number] Date:4170-57-02PL [address] [place] [address]HL: 06/21/2017 Tertiary NOT GIVENUNK [place] Insurance:SELF PAY [facility] Number: Effective Repository Date:2017-06-21 06/21/2017 Cuong Chowdhury Primary Cuong Short [id number] Insurance:MEDICARE SchubertDOB: [place] PART A BPolicy Number: [id number] [place], [place] [id number] Repository 76646Xft: (296) Date:2017-06-211524 () 06/21/2017 Secondary Cuong Chowdhury [place] Insurance:HUMANA SchubertDOB: [facility] [id number] Hospital Number: Repository [id number] Date:8464-11-10WA [address] [place] [address]QJ: 06/21/2017 Tertiary NOT GIVENUNK [place] Insurance:SELF PAY [facility] Number: Effective Repository Date:2017-06-21 06/21/2017 Cuong Chowdhury Primary Cuong Short [id number] Insurance:MEDICARE SchubertDOB: [place] PART A BPolicy Number: [id number] [place], [place] [id number] Repository 44293Paw: 330) Date:2017-06-21 [id number] () 06/21/2017 Secondary Cuong Chowdhury [place] Insurance:HUMANA SchubertDOB: [facility] [id number] Hospital Number: Repository [id number] Date:0182-15-72WM [address] [place] [address]VX: 06/21/2017 Tertiary NOT GIVENUNK [place] Insurance:SELF PAY [facility] Number: Effective Repository Date:2017-06-21 06/21/2017 Cuong L Primary Cuong Chowdhury [place] [id number] Insurance:MEDICARE SchubertDOB: [place] PART A BPolicy Number: [id number] [place], [place] [id number] Repository 09140Qcm: (758) Date:2017-06-213844 (HP) 06/21/2017 Secondary Cuong Chowdhury [place] Insurance:HUMANA SchubertDOB: [facility] [id number] Hospital Number: Repository [id number] Date:2857-46-94OM [address] [place] [address]EX: 06/21/2017 Tertiary NOT GIVENUNK [place] Insurance:SELF PAY [facility] Number: Effective Repository Date:2017-06-21 06/21/2017 Cuong Chowdhury Primary Cuong Rojooster [id number] Insurance:MEDICARE SchubertDOB: [facility] [place] PART A olicy Number: [id number] [place], [place] [id number] Repository 12311Cws: 330) Date:2017-06-210432 () 06/21/2017 Secondary Cuong Chowdhury [place] Insurance:HUMANA SchubertDOB: [facility] [id number] Hospital Number: Repository [id number] Date:7489-05-24WC [address] [place] [address]IE: 06/21/2017 Tertiary NOT GIVENUNK [place] Insurance:SELF PAY [facility] Number: Effective Repository Date:2017-06-21 06/21/2017 Cuong Chowdhury Primary Cuong Short [id number] Insurance:MEDICARE SchubertDOB: [facility] [place] PART A BPolicy Number: [id number] [place], [place] [id number] Repository 86401Ihx: 330) Date:2017-06-210478 (HP) 06/21/2017 Secondary Cuong Chowdhury [place] Insurance:HUMANA SchubertDOB: [facility] 1833-29-86OEC Hospital Number: Repository [id number] Date:9768-28-26FU [address] [place] [address]QQ: 06/21/2017 Tertiary NOT GIVENUNK [place] Insurance:SELF PAY [facility] Number: Effective Repository Date:2017-06-21 06/21/2017 Cuong L Primary Cuong Short [id number] Insurance:MEDICARE SchubertDOB: Community [place] PART A BPolicy Number: [id number] [place], [place] [id number] Repository 72321Eob: 330) Date:2017-06-21-7413 () 06/21/2017 Secondary Cuong L [place] Insurance:HUMANA SchubertDOB: [facility] [id number] Hospital Number: Repository [id number] Date:3584-06-91PO[address] [address]NP: 06/21/2017 Tertiary NOT GIVENUNK [place] Insurance:SELF PAY [facility] Number: Effective Repository Date:2017-06-21 06/21/2017 Cuong L Primary Cuong Short [id number] Insurance:MEDICARE SchubertDOB: [facility] [place] PART A BPolicy Number: [id number] [place], [place] [id number] Repository 60758Mgi: 330) Date:2017-06-211186 () 06/21/2017 Secondary Cuong Chowdhury [place] Insurance:HUMANA SchubertDOB: [facility] [id number] Hospital Number: Repository [id number] Date:3754-11-98LJ[address] [address]SO: 06/21/2017 Tertiary NOT GIVENUNK [place] Insurance:SELF PAY [facility] Number: Effective Repository Date:2017-06-21 06/21/2017 Cuong L Primary Cuong Short [id number] Insurance:MEDICARE SchubertDOB: [facility] [place] PART A BPolicy Number: [id number] [place], [place] [id number] Repository 42596Yvc: 330) Date:2017-06-212153 (HP) 06/21/2017 Secondary Cuong L [place] Insurance:HUMANA SchubertDOB: [facility] [id number] Hospital Number: Repository [id number] Date:4230-63-04IP [address] [place] [address]IF: 06/21/2017 Tertiary NOT GIVENUNK [place] Insurance:SELF PAY [facility] Number: Effective Repository Date:2017-06-21 06/21/2017 Cuong Chowdhury Primary Cuong Short [id number] Insurance:MEDICARE SchubertDOB: [place] PART A BPolicy Number: [id number] Diego, [place] [id number] Repository 17413Yhe: (174) Date:2017-06-21 [id number] () 06/21/2017 Secondary Cuong Chowdhury [place] Insurance:HUMANA SchubertDOB: [facility] [id number] Hospital Number: Repository [id number] Date:8291-67-50LU [address] [place] [address]HG: 06/21/2017 Tertiary NOT GIVENUNK [place] Insurance:SELF PAY [facility] Number: Effective Repository Date:2017-06-21 06/21/2017 Cuong L Primary Cuong Rojooster [id number] Insurance:MEDICARE SchubertDOB: [place] PART A BPolicy Number: [id number] [place], [place] [id number] Repository 71602Tsk: (834) Date:2017-06-219220 () 06/21/2017 Secondary Cuong Chowdhury [place] Insurance:HUMANA SchubertDOB: [facility] [id number] Hospital Number: Repository [id number] Date:9433-68-36FG [address] [place] [address]FF: 06/21/2017 Tertiary NOT GIVENUNK [place] Insurance:SELF PAY [facility] Number: Effective Repository Date:2017-06-21 06/21/2017 Cuong L Primary Cuong Chowdhury [place] [id number] Insurance:MEDICARE SchubertDOB: [facility] [place] PART A BPolicy Number: [id number] [place], [place] [id number] Repository 21768Ygv: (357) Date:2017-06-212875 (HP) 06/21/2017 Secondary Cuong Chowdhury [place] Insurance:HUMANA SchubertDOB: [facility] [id number] Hospital Number: Repository [id number] Date:8689-97-01IK [address] [place] [address]PU: 06/21/2017 Tertiary NOT GIVENUNK [place] Insurance:SELF PAY [facility] Number: Effective Repository Date:2017-06-21 06/21/2017 Cuong L Primary Cuong Rojooster [id number] Insurance:MEDICARE SchubertDOB: [facility] [place] PART A BPolicy Number: [id number] [place], [place] [id number] Repository 46207Rmy: 330) Date:2017-06-210041 () 06/21/2017 Secondary Cuong Chowdhury [place] Insurance:HUMANA SchubertDOB: [facility] [id number] Hospital Number: Repository [id number] Date:4525-00-67NL [address] [place] [address]BR: 06/21/2017 Tertiary NOT GIVENUNK [place] Insurance:SELF PAY [facility] Number: Effective Repository Date:2017-06-21 06/21/2017 Cuong L Primary Cuong Rojooster [id number] Insurance:MEDICARE SchubertDOB: [facility] [place] PART A BPolicy Number: [id number] [place], [place] [id number] Repository 68755Aqt: 330) Date:2017-06-217699 (HP) 06/21/2017 Secondary Cuong L [place] Insurance:HUMANA SchubertDOB: [facility] [id number] Hospital Number: Repository [id number] Date:0203-36-16MA [address] [place] [address]GR: 06/21/2017 Tertiary NOT GIVENUNK [place] Insurance:SELF PAY [facility] Number: Effective Repository Date:2017-06-21 06/21/2017 Cuong L Primary Cuong Chowdhury Han [id number] Insurance:MEDICARE SchubertDOB: [facility] [place] PART A BPolicy Number: [id number] [place], [place] [id number] Repository 99051Bkg: (457) Date:2017-06-218973 () 06/21/2017 Secondary Cuong L [place] Insurance:HUMANA SchubertDOB: [facility] [id number] Hospital Number: Repository [id number] Date:0043-28-07OE[address] [address]UZ: 06/21/2017 Tertiary NOT GIVENUNK [place] Insurance:SELF PAY [facility] Number: Effective Repository Date:2017-06-21 06/21/2017 Cuong L Primary Cuong Chowdhury [place] [id number] Insurance:MEDICARE SchubertDOB: [facility] PART A olicy Number: [id number] [place], [place] [id number] Repository 37395Nsn: 330) Date:2017-06-214234 () 06/21/2017 Secondary Cuong L [place] Insurance:HUMANA SchubertDOB: [facility] 2934QAZ Hospital Number: Repository [id number] Date:8599-09-32PE[address] [address]IX: 06/21/2017 Tertiary NOT GIVENUNK [place] Insurance:SELF PAY [facility] Number: Effective Repository Date:2017-06-21 06/21/2017 Cuong L Primary Cuong Chowdhury Han [id number] Insurance:MEDICARE SchubertDOB: [facility] PART A olicy Number: [id number] [place], [place] [id number] Repository 81772Ndm: 330) Date:2017-06-214217 (HP) 06/21/2017 Secondary Cuong L [place] Insurance:HUMANA SchubertDOB: [facility] 4788-29-10LFJ Hospital Number: Repository [id number] Date:8580-88-66ID [address] [place] [address]GJ: 06/21/2017 Tertiary NOT GIVENUNK [place] Insurance:SELF PAY [facility] [address] [facility] Number: Effective Repository Date:2017-06-21 06/17/2017 Cuong Chowdhury Primary Cuong Short [id number] Insurance:MEDICARE SchubertDOB: [facility] PART A BPolicy Number: [id number] [place], [place] [id number] Repository 76513Fal: 330) Date:2017-06-03-5258 () 06/17/2017 Secondary Cuong Chowdhury [place] Insurance:HUMANA SchubertDOB: [facility] [id number] Hospital Number: Repository [id number] Date:8894-82-24UC [address] [address]AP: 06/17/2017 Tertiary NOT GIVENUNK [place] Insurance:SELF PAY [facility] Number: Effective Repository Date:2017-06-03 06/13/2017 CUONG Chowdhury Primary CUONG Chowdhury [facility] SCHUBERTDOB: Insurance:MEDICARE A [facility] CITY[facility]ASTAB: [place] [id number] AND BPolicy Number: [id number] [facility] [id number] [address] [place] [address] Date:0107-99-33Wyqg [place], [place] Repository [address]Oyx: 330) Name:CARE 40822Mhl: () -[phone] () 06/13/2017 Secondary CUONG Chowdhury [place] Insurance:HUMANAPolicy [facility] CITYUBERTDOB: [place] Number: [id number] [facility] [id number] [address] [place] [address] Date:4373-11-15Emmk [place], [place] Repository Name:MANAGED CARE [id number]: () 06/13/2017 CUONG Chowdhury Primary CUONG Chowdhury [facility] SCHUBERTDOB: Insurance:MEDICARE A [facility] CITYTRISHATDOB: [place] [id number] AND BPolicy Number: [id number] [place] [address] [id number] [place] [address] Date:3111-14-17Zelw [place] Repository 16[address]Sbb: (330) Name:CARE [id number]: (HP) [phone] () 06/13/2017 Secondary CUONG Chowdhury [facility] Insurance:HUMANAPolicy SCHUBERTDOB: University Number: [id number] [facility] [id number] [address] [place] [address] Date:5272-00-88Hsfo [place] Repository Name:MANAGED CARE [id number]: () 06/07/2017 Cuong L Primary Cuong L Han [id number] Insurance:MEDICARE SchubertDOB: [facility] PART A BPolicy Number: [id number] [place], [place] [id number] Repository 81604Ygs: (330) Date:2009-04-054634 () 06/07/2017 Secondary Cuong L [place] Insurance:HUMANA SchubertDOB: [facility] [id number] Hospital Number: Repository [id number] Date:2893-62-51QEHE[place]ER [place] 268[address]WP: 06/07/2017 Tertiary NOT GIVENUNK [place] Insurance:SELF PAY [facility] Number: Effective Repository Date:2017-06-06 06/03/2017 Cuong L Primary Cuong L Han [id number] Insurance:MEDICARE SchubertDOB: Community [place] PART A BPolicy Number: [id number] [place], [place] [id number] Repository 72476Ibe: (330) Date:2017-05-203148 () 06/03/2017 Secondary Cuong L [place] Insurance:HUMANA SchubertDOB: [facility] [id number] Hospital Number: Repository [id number] Date:5081-84-28[place] [address]WP: 06/03/2017 Tertiary NOT GIVENUNK [place] Insurance:SELF PAY [facility] Number: Effective Repository Date:2017-05-20 05/31/2017 Cuong Chowdhury Primary Cuong Chowdhury [place] [id number] Insurance:MEDICARE SchubertDOB: [facility] [place] PART A BPolicy Number: [id number] [place], [place] [id number] Repository 77787Svs: (330) Date:2009-04-050585 () 05/31/2017 Secondary Cuong Chowdhury [place] Insurance:HUMANA SchubertDOB: [facility] 4035-30-14XWL Hospital Number: Repository [id number] Date:5577-10-75UA[address] [address]AR: 05/31/2017 Tertiary NOT GIVENUNK [place] Insurance:SELF PAY [facility] Number: Effective Repository Date:2017-05-06
== END ==
PROVIDERS: Family Provider Family Medicine; PCP Family Medicine; Referring Provider Internal Medicine Nephrology; Visit Provider Internal Medicine Nephrology
DX: N18.3 Chronic kidney disease, stage 3 (moderate) (principal); D63.1 Anemia in chronic kidney disease
CPT/HCPCS: 36415; 80069; 85025; 96372; J0885

== ENCOUNTER 2018-05-02 13:15 | Outpatient (RCR) | payer MEDICARE, OTHER, SELFPAY ==
[2015-10-31 10:00] VITALS: BMI 34.9
[2018-04-05 00:45] VITALS: BP 125/63; PULSE 72; RESP 18; TEMP 36.5
[2018-04-08 13:38] VITALS: BMI 27.8
[2018-04-11 12:30] VITALS: BP 134/71; PULSE 72; RESP 16; TEMP 36; BMI 27.8
--- NOTE | 2018-04-11 17:57 | PCM.WC.PN ---
(1) Nonhealing surgical wound Status: Chronic Current Visit: Yes Qualifiers: Encounter type: subsequent encounter Code(s): T81.89XA - Other complications of procedures, not elsewhere classified, initial encounter (2) Open wound of lower back Status: Chronic Current Visit: Yes Code(s): S31.000A - Unspecified open wound of lower back and pelvis without penetration into retroperitoneum, initial encounter (3) Chronic kidney disease Status: Chronic Current Visit: Yes Qualifiers: Chronic kidney disease stage: stage 3 (moderate) Code(s): N18.9 - Chronic kidney disease, unspecified Type of Wound Date of Service: 04/11/18 Chief Complaint: Nonhealing surgical wound of lower back History of Wound: Mr. Marshall is a 72-yo who has been seen here at the wound center for a nonhealing surgical wound of his lower back s/p surgical debridement for an abscess s/p lumbar spine surgery. His original surgery on his lower back was approximately 18 months ago and he has had multiple complications since that time. He underwent surgical debridement on 03/04/[address] Davila at [facility] in [place] and was discharged with a wound vac for healing by secondary intention with possible muscle flap closure in the future. He followed up with his surgeon on 04/18/17 for further evaluation and recommendations and they plan to close the wound with a muscle flap but he continues to develop infections. He is also being seen by Infectious Disease as needed. CT 02/2018 did not show any abscess. Progress of Wound: Cuong is here for follow-up of his nonhealing surgical wound of his lower back. He continues to be having a significant amount of increased pain in his right low back with some pain into his legs and left foot but this is felt to be from degenerative disease and unrelated to his wound based on recent CT results. His has only been having to change the dressing once daily. Has been using gauze and ABDs and Aquacel. He has had 10 applications of Purapply with mild improvement. [facility] who is hopeful to close Cuong's surgical wound with a skin flap. He requested additional records of CT scans as well as information on radiation that was done previously and will review these records and decide what to do from there. - Physical Exam Vital Signs Temp Pulse Resp BP 96.8 F L 72 16 134/71 H 04/11/18 12:30 04/11/18 12:30 04/11/18 12:30 04/11/18 12:30 General: Alert, Oriented x3, Cooperative, No apparent distress HEENT: Atraumatic, Normocephalic Oral: Moist Mucosa Extremities: Edema Skin: Ulcer/ Wound Wound Measurements and Assessment - Nurse 1 - General Ulcer Measurement Start: 04/11/18 12:30 Freq: Status: Active Protocol: Activity Type Activity Date Activity User E-Sign Co-Sign Detail Recorded Client Recorded Date Recorded By Document 04/11/18 12:30 [facility] [id number] 04/11/18 12:35 BMF 04/11/18 12:30 Wound Center Nurse 1 [Ulcer Assessment] #9 Lower Lumbar- Midline -Combined with other wound No -Current Size (cm) - Length 14 -Current Size (cm) - Width 4.5 -Current Size (cm) - Depth 0.9 -Total Square Cm 63.0 -Photo Taken No -Epithelialization None Present -Tunneling No -Undermining/Tunneling No -Circular Undermining No -Exudate Amt Large (67-100%) -Exudate Type Serosanguineous -Wound Margin Thickened & Rolled Under -Granulation Amt Small (1-33%) -Granulation Quality [place] -Slough/Fibrin Yes -Necrosis Amt Large (67-100%) -Necrotic Tissue Type Adherent Slough -Texture (Uma-wound Skin Appearance) Scarring -Moisture (Uma-wound Skin Appearance Dry/Scaly ) -Color (Uma-wound Skin Appearance) Assessed Erythema -Temperature (Uma-wound Skin No Abnormality Appearance) (Pt Warm) -Tenderness on Palpation (Uma-wound No Skin Appearance) -Ulcer Cleansing Wound Cleanser -Foul Odor after Cleansing No -Anesthetic Used 4% Lidocaine Solution WC - Nurse 2 - General Ulcer CM Notes Start: 04/11/18 12:30 Freq: Status: Active Protocol: Activity Type Activity Date Activity User E-Sign Co-Sign Detail Recorded Client Recorded Date Recorded By Document 04/11/18 12:50 [id number] 04/11/18 12:56 CS 04/11/18 12:50 Wound Center Nurse 2 [Procedure/Treatment] -Time 12:50 -Correct Patient Yes -Correct Side, Site, Position Yes -Correct Procedure Yes -Procedure Performed Yes -Type of Procedure Debridement -Clinical Debridement Subcutaneous -Post Debridement Size (cm) - Length 13.6 -Post Debridement Size (cm) - Width 4.3 -Post Debridement Size (cm) - Depth 0.5 -Total Square Cm 58.48 -Wound/Ulcer Outcome Not Healed -Ulcer Cleansing Rinsed/ Irrigated with Saline -Foul Odor after Cleansing No -Bioengineered Tissue No -Bleeding Controlled with Pressure -Offloading No -Treatment Response Procedure Tolerated Well [See Physician Procedure note for Specifics] Pain Scale: 0-10 Numeric [Pain] -Is Patient Pain Free? Yes Psych/Mental Status: Normal Affect, Appropriate Debridement Note Post-Debridement Measurements/Treatment WC - Nurse 2 - General Ulcer CM Notes Start: 04/11/18 12:30 Freq: Status: Active Protocol: Activity Type Activity Date Activity User E-Sign Co-Sign Detail Recorded Client Recorded Date Recorded By Document 04/11/18 12:50 [id number] 04/11/18 12:56 CS 04/11/18 12:50 Wound Center Nurse 2 #9 Lower Lumbar- Midline -Time 12:50 -Correct Patient Yes -Correct Side, Site, Position Yes -Correct Procedure Yes -Procedure Performed Yes -Type of Procedure Debridement -Clinical Debridement Subcutaneous -Post Debridement Size (cm) - Length 13.6 -Post Debridement Size (cm) - Width 4.3 -Post Debridement Size (cm) - Depth 0.5 -Total Square Cm 58.48 -Wound/Ulcer Outcome Not Healed -Ulcer Cleansing Rinsed/ Irrigated with Saline -Foul Odor after Cleansing No -Bioengineered Tissue No -Bleeding Controlled with Pressure -Offloading No -Treatment Response Procedure Tolerated Well Pain Scale: 0-10 Numeric Is Patient Pain Free? Yes Wound debrided: lower lumbar surgical wound - midline Laterality: Not Applicable Type of Debridement: Excisional debridement Anesthesia Used: 4% Lidocaine Solution Depth: Down to and including healthy tissue, in the subcutaneous layer Percentage of wound debrided: 100 Instrument Used: 7mm curette Tissue Removed: yellow slough, devitalized tissue Severity: Fat Layer Exposed Amount of bleeding with debridement: Mild Bleeding Controlled with: Compression and gauze Patient tolerated procedure well Assessment/Plan Active Problems (Last Reviewed 11/19/17 @ 16:27 by Micky Mauro MD) Nonhealing surgical wound (Chronic) Open wound of lower back (Chronic) Chronic kidney disease (Chronic) Assessment: chronic surgical wound dehiscence lumbar with complex abscess and recent surgical debridement. malnutrition. other multiple comorbidities. edema bilateral lower extremities. Bleeding site from within wound controlled with combination of silver nitrate and Surgifoam. Bleeding appears to be controlled. venous insufficiency. immunocompromised status. Plan: Debridement done as documented above. Procedure was well-tolerated. Purapply applications completed. Will have him use Aquacel Extra and will continue to use gauze and ABDs with changes once-twice daily. CT lumbar spine was negative for abscess/cellulitis. Continue increased protein intake. F/U in [address] Wick.
--- NOTE | 2018-04-11 18:00 | PN.PCM_ITS ---
(1) Nonhealing surgical wound Status: Chronic Current Visit: Yes Qualifiers: Encounter type: subsequent encounter Code(s): T81.89XA - Other complications of procedures, not elsewhere classified, initial encounter (2) Open wound of lower back Status: Chronic Current Visit: Yes Code(s): S31.000A - Unspecified open wound of lower back and pelvis without penetration into retroperitoneum, initial encounter (3) Chronic kidney disease Status: Chronic Current Visit: Yes Qualifiers: Chronic kidney disease stage: stage 3 (moderate) Code(s): N18.9 - Chronic kidney disease, unspecified Type of Wound Date of Service: 04/11/18 Chief Complaint: Nonhealing surgical wound of lower back History of Wound: Mr. Marshall is a 72-yo who has been seen here at the wound center for a nonhealing surgical wound of his lower back s/p surgical debridement for an abscess s/p lumbar spine surgery. His original surgery on his lower back was approximately 18 months ago and he has had multiple complications since that time. He underwent surgical debridement on 03/04/[address] Davila at [facility] in [place] and was discharged with a wound vac for healing by secondary intention with possible muscle flap closure in the future. He followed up with his surgeon on 04/18/17 for further evaluation and recommendations and they plan to close the wound with a muscle flap but he continues to develop infections. He is also being seen by Infectious Disease as needed. CT 02/2018 did not show any abscess. Progress of Wound: Cuong is here for follow-up of his nonhealing surgical wound of his lower back. He continues to be having a significant amount of increased pain in his right low back with some pain into his legs and left foot but this i s felt to be from degenerative disease and unrelated to his wound based on recent CT results. His has only been having to change the dressing once daily. Has been using gauze and ABDs and Aquacel. He has had 10 applications of Purapply with mild improvement. He saw a plastic surgeon at [facility] on 04/02/18 who is hopeful to close Cuong's surgical wound with a skin flap. He requested additional records of CT scans as well as information on radiation that was done previously and will review these records and decide what to do from there. - Physical Exam Vital Signs Temp Pulse Resp BP 96.8 F L 72 16 134/71 H 04/11/18 12:30 04/11/18 12:30 04/11/18 12:30 04/11/18 12:30 General: Alert, Oriented x3, Cooperative, No apparent distress HEENT: Atraumatic, Normocephalic Oral: Moist Mucosa Extremities: Edema Skin: Ulcer/ Wound Wound Measurements and Assessment WC - Nurse 1 - General Ulcer Measurement Start: 04/11/18 12:30 Freq: Status: Active Protocol: Activity Type Activity Date Activity User E-Sign Co-Sign Detail Recorded Client Recorded Date Recorded By Document 04/11/18 12:30 [facility] [id number] 04/11/18 12:35 BMF 04/11/18 12:30 Wound Center Nurse 1 [Ulcer Assessment] #9 Lower Lumbar- Midline -Combined with other wound No -Current Size (cm) - Length 14 -Current Size (cm) - Width 4.5 -Current Size (cm) - Depth 0.9 -Total Square Cm 63.0 -Photo Taken No -Epithelialization None Present -Tunneling No -Undermining/Tunneling No -Circular Undermining No -Exudate Amt Large (67-100%) -Exudate Type Serosanguineous -Wound Margin Thickened & Rolled Under -Granulation Amt Small (1-33%) -Granulation Quality [place] -Slough/Fibrin Yes -Necrosis Amt Large (67-100%) -Necrotic Tissue Type Adherent Slough -Texture (Uma-wound Skin Appearance) Scarring -Moisture (Uma-wound Skin Appearance Dry/Scaly ) -Color (Uma-wound Skin Appearance) Assessed Erythema -Temperature (Uma-wound Skin No Abnormality Appearance) (Pt Warm) -Tenderness on Palpation (Uma-wound No Skin Appearance) -Ulcer Cleansing Wound Cleanser -Foul Odor after Cleansing No -Anesthetic Used 4% Lidocaine Solution WC - Nurse 2 - General Ulcer CM Notes Start: 04/11/18 12:30 Freq: Status: Active Protocol: Activity Type Activity Date Activity User E-Sign Co-Sign Detail Recorded Client Recorded Date Recorded By Document 04/11/18 12:50 [id number] 04/11/18 12:56 CS 04/11/18 12:50 Wound Center Nurse 2 [Procedure/Treatment] -Time 12:50 -Correct Patient Yes -Correct Side, Site, Position Yes -Correct Procedure Yes -Procedure Performed Yes -Type of Procedure Debridement -Clinical Debridement Subcutaneous -Post Debridement Size (cm) - Length 13.6 -Post Debridement Size (cm) - Width 4.3 -Post Debridement Size (cm) - Depth 0.5 -Total Square Cm 58.48 -Wound/Ulcer Outcome Not Healed -Ulcer Cleansing Rinsed/ Irrigated with Saline -Foul Odor after Cleansing No -Bioengineered Tissue No -Bleeding Controlled with Pressure -Offloading No -Treatment Response Procedure Tolerated Well [See Physician Procedure note for Specifics] Pain Scale: 0-10 Numeric [Pain] -Is Patient Pain Free? Yes Psych/Mental Status: Normal Affect, Appropriate Debridement Note Post-Debridement Measurements/Treatment WC - Nurse 2 - General Ulcer CM Notes Start: 04/11/18 12:30 Freq: Status: Active Protocol: Activity Type Activity Date Activity User E-Sign Co-Sign Detail Recorded Client Recorded Date Recorded By Document 04/11/18 12:50 [id number] 04/11/18 12:56 CS 04/11/18 12:50 Wound Center Nurse 2 #9 Lower Lumbar- Midline -Time 12:50 -Correct Patient Yes -Correct Side, Site, Position Yes -Correct Procedure Yes -Procedure Performed Yes -Type of Procedure Debridement -Clinical Debridement Subcutaneous -Post Debridement Size (cm) - Length 13.6 -Post Debridement Size (cm) - Width 4.3 -Post Debridement Size (cm) - Depth 0.5 -Total Square Cm 58.48 -Wound/Ulcer Outcome Not Healed -Ulcer Cleansing Rinsed/ Irrigated with Saline -Foul Odor after Cleansing No -Bioengineered Tissue No -Bleeding Controlled with Pressure -Offloading No -Treatment Response Procedure Tolerated Well Pain Scale: 0-10 Numeric Is Patient Pain Free? Yes Wound debrided: lower lumbar surgical wound - midline Laterality: Not Applicable Type of Debridement: Excisional debridement Anesthesia Used: 4% Lidocaine Solution Depth: Down to and including healthy tissue, in the subcutaneous layer Percentage of wound debrided: 100 Instrument Used: 7mm curette Tissue Removed: yellow slough, devitalized tissue Severity: Fat Layer Exposed Amount of bleeding with debridement: Mild Bleeding Controlled with: Compression and gauze Patient tolerated procedure well Assessment/Plan Active Problems (Last Reviewed 11/19/17 @ 16:27 by Micky Mauro MD) Nonhealing surgical wound (Chronic) Open wound of lower back (Chronic) Chronic kidney disease (Chronic) Assessment: chronic surgical wound dehiscence lumbar with complex abscess and recent surgical debridement. malnutrition. other multiple comorbidities. edema bilateral lower extremities. Bleeding site from within wound controlled with combination of silver nitrate and Surgifoam. Bleeding appears to be controlled. venous insufficiency. immunocompromised status. Plan: Debridement done as documented above. Procedure was well-tolerated. Purapply applications completed. Will have him use Aquacel Extra and will continue to use gauze and ABDs with changes once-twice daily. CT lumbar spine w as negative for abscess/cellulitis. Continue increased protein intake. F/U in [address] Wick.
[2018-04-18 12:51] VITALS: BP 124/64; PULSE 76; RESP 18; TEMP 36.7; BMI 27.8
--- NOTE | 2018-04-18 13:54 | PCM.WC.PN ---
(1) Nonhealing surgical wound Status: Chronic Current Visit: Yes Qualifiers: Encounter type: subsequent encounter Code(s): T81.89XA - Other complications of procedures, not elsewhere classified, initial encounter (2) Open wound of lower back Status: Chronic Current Visit: Yes Code(s): S31.000A - Unspecified open wound of lower back and pelvis without penetration into retroperitoneum, initial encounter (3) Chronic kidney disease Status: Chronic Current Visit: Yes Qualifiers: Chronic kidney disease stage: stage 3 (moderate) Code(s): N18.9 - Chronic kidney disease, unspecified Type of Wound Date of Service: 04/18/18 Chief Complaint: Nonhealing surgical wound of lower back History of Wound: Mr. Marshall is a 72-yo who has been seen here at the wound center for a nonhealing surgical wound of his lower back s/p surgical debridement for an abscess s/p lumbar spine surgery. His original surgery on his lower back was approximately 18 months ago and he has had multiple complications since that time. He underwent surgical debridement on 03/04/[address] Davila at [facility] in [place] and was discharged with a wound vac for healing by secondary intention with possible muscle flap closure in the future. He followed up with his surgeon on 04/18/17 for further evaluation and recommendations and they plan to close the wound with a muscle flap but he continues to develop infections. He is also being seen by Infectious Disease as needed. CT 02/2018 did not show any abscess. Progress of Wound: Cuong is here for follow-up of his nonhealing surgical wound of his lower back. His wound is stable and shows mild improvement. He continues to be having a significant amount of increased pain in his right low back with some pain into his legs and left foot but this is felt to be from degenerative disease and unrelated to his wound based on recent CT results. His has only been having to change the dressing once daily. Has been using gauze and ABDs and Aquacel. He has had 10 applications of Purapply with mild improvement. He saw a plastic surgeon at [facility] on 04/02/18 who is hopeful to close Cuong's surgical wound with a skin flap. He requested additional records of CT scans as well as information on radiation that was done previously and will review these records and decide what to do from there. - Physical Exam Vital Signs Temp Pulse Resp BP 98.1 F 76 18 124/64 H 04/18/18 12:51 04/18/18 12:51 04/18/18 12:51 04/18/18 12:51 General: Alert, Oriented x3, Cooperative, No apparent distress HEENT: Atraumatic, Normocephalic Oral: Moist Mucosa Extremities: Edema Skin: Ulcer/ Wound Wound Measurements and Assessment WC - Nurse 1 - General Ulcer Measurement Start: 04/11/18 12:30 Freq: Status: Active Protocol: Activity Type Activity Date Activity User E-Sign Co-Sign Detail Recorded Client Recorded Date Recorded By Document 04/18/18 12:51 AN [id number] 04/18/18 13:09 AN 04/18/18 12:51 Wound Center Nurse 1 [Ulcer Assessment] #9 Lower Lumbar- Midline -Current Size (cm) - Length 14.0 -Current Size (cm) - Width 4.7 -Current Size (cm) - Depth 0.2 -Total Square Cm 65.80 -Photo Taken No -Epithelialization None Present -Classification - Thickness Full Thickness with Exposed Support Structure -Exudate Amt Medium (34-66%) -Exudate Type Serosanguineous -Wound Margin Distinct, Outline Attached -Granulation Amt Small (1-33%) -Granulation Quality Red -Slough/Fibrin Yes -Necrosis Amt Large (67-100%) -Necrotic Tissue Type Adherent Slough -Structure Exposed Fascia -Texture (Uma-wound Skin Appearance) Assessed Scarring -Moisture (Uma-wound Skin Appearance Assessed ) -Color (Uma-wound Skin Appearance) Erythema -Temperature (Uma-wound Skin No Abnormality Appearance) (Pt Warm) -Tenderness on Palpation (Uma-wound Yes Skin Appearance) -Ulcer Cleansing Rinsed/ Irrigated with Saline -Foul Odor after Cleansing No -Anesthetic Used 4% Lidocaine Solution WC - Nurse 2 - General Ulcer CM Notes Start: 04/11/18 12:30 Freq: Status: Active Protocol: Activity Type Activity Date Activity User E-Sign Co-Sign Detail Recorded Client Recorded Date Recorded By Document 04/18/18 13:19 CS [id number] 04/18/18 13:25 CS 04/18/18 13:19 Wound Center Nurse 2 [Procedure/Treatment] -Time 13:19 -Correct Patient Yes -Correct Side, Site, Position Yes -Correct Procedure Yes -Procedure Performed Yes -Type of Procedure Debridement -Clinical Debridement Subcutaneous -Post Debridement Size (cm) - Length 12.7 -Post Debridement Size (cm) - Width 4.1 -Post Debridement Size (cm) - Depth 0.5 -Total Square Cm 52.07 -Wound/Ulcer Outcome Not Healed -Ulcer Cleansing Rinsed/ Irrigated with Saline -Foul Odor after Cleansing No -Bioengineered Tissue No -Bleeding Controlled with Pressure -Offloading No -Treatment Response Procedure Tolerated Well [See Physician Procedure note for Specifics] Pain Scale: 0-10 Numeric [Pain] -Is Patient Pain Free? Yes Psych/Mental Status: Normal Affect, Appropriate Debridement Note Post-Debridement Measurements/Treatment WC - Nurse 2 - General Ulcer CM Notes Start: 04/11/18 12:30 Freq: Status: Active Protocol: Activity Type Activity Date Activity User E-Sign Co-Sign Detail Recorded Client Recorded Date Recorded By Document 04/11/18 12:50 [id number] 04/11/18 12:56 CS Document 04/18/18 13:19 [id number] 04/18/18 13:25 CS 04/11/18 04/18/18 12:50 13:19 Wound Center Nurse 2 #9 Lower Lumbar- Midline -Time 12:50 13:19 -Correct Patient Yes Yes -Correct Side, Site, Position Yes Yes -Correct Procedure Yes Yes -Procedure Performed Yes Yes -Type of Procedure Debridement Debridement -Clinical Debridement Subcutaneous Subcutaneous -Post Debridement Size (cm) - Length 13.6 12.7 -Post Debridement Size (cm) - Width 4.3 4.1 -Post Debridement Size (cm) - Depth 0.5 0.5 -Total Square Cm 58.48 52.07 -Wound/Ulcer Outcome Not Healed Not Healed -Ulcer Cleansing Rinsed/ Rinsed/ Irrigated with Irrigated with Saline Saline -Foul Odor after Cleansing No No -Bioengineered Tissue No No -Bleeding Controlled with Pressure Pressure -Offloading No No -Treatment Response Procedure Procedure Tolerated Well Tolerated Well Pain Scale: 0-10 Numeric Is Patient Pain Free? Yes Yes Wound debrided: lower lumbar midline Laterality: Not Applicable Type of Debridement: Excisional debridement Anesthesia Used: 4% Lidocaine Solution Depth: Down to and including healthy tissue, in the subcutaneous layer Percentage of wound debrided: 100 Instrument Used: 5mm curette Tissue Removed: yellow slough, devitalized tissue Severity: Fat Layer Exposed Amount of bleeding with debridement: Mild Bleeding Controlled with: Compression and gauze Patient tolerated procedure well Assessment/Plan Active Problems (Last Reviewed 11/19/17 @ 16:27 by Micky Mauro MD) Nonhealing surgical wound (Chronic) Open wound of lower back (Chronic) Chronic kidney disease (Chronic) Assessment: chronic surgical wound dehiscence lumbar with complex abscess and recent surgical debridement. malnutrition. other multiple comorbidities. edema bilateral lower extremities. Bleeding site from within wound controlled with combination of silver nitrate and Surgifoam. Bleeding appears to be controlled. venous insufficiency. immunocompromised status. Plan: Debridement done as documented above. Procedure was well-tolerated. Purapply applications completed. Will have him continue to use Aquacel Extra and will continue to use gauze and ABDs with changes once-twice daily as needed. Will consider reapplying snap vac due to decrease in drainage. CT lumbar spine was negative for abscess/cellulitis. Continue increased protein intake. F/U in [address] Wick.
--- NOTE | 2018-04-18 13:58 | PN.PCM_ITS ---
(1) Nonhealing surgical wound Status: Chronic Current Visit: Yes Qualifiers: Encounter type: subsequent encounter Code(s): T81.89XA - Other complications of procedures, not elsewhere classified, initial encounter (2) Open wound of lower back Status: Chronic Current Visit: Yes Code(s): S31.000A - Unspecified open wound of lower back and pelvis without penetration into retroperitoneum, initial encounter (3) Chronic kidney disease Status: Chronic Current Visit: Yes Qualifiers: Chronic kidney disease stage: stage 3 (moderate) Code(s): N18.9 - Chronic kidney disease, unspecified Type of Wound Date of Service: 04/18/18 Chief Complaint: Nonhealing surgical wound of lower back History of Wound: Mr. Marshall is a 72-yo who has been seen here at the wound center for a nonhealing surgical wound of his lower back s/p surgical debridement for an abscess s/p lumbar spine surgery. His original surgery on his lower back was approximately 18 months ago and he has had multiple complications since that time. He underwent surgical debridement on 03/04/[address] Davila at [facility] in [place] and was discharged with a wound vac for healing by secondary intention with possible muscle flap closure in the future. He followed up with his surgeon on 04/18/17 for further evaluation and recommendations and they plan to close the wound with a muscle flap but he continues to develop infections. He is also being seen by Infectious Disease as needed. CT 02/2018 did not show any abscess. Progress of Wound: Cuong is here for follow-up of his nonhealing surgical wound of his lower back. His wound is stable and shows mild improvement. He continues to be having a significant amount of increased pain in his right low back with some pain into his legs and left foot but this is felt to be from degenerative disease and unrelated to his wound based on recent CT results. His has only been having to change the dressing once daily. Has been using gauze and ABDs and Aquacel. He has had 10 applications of Purapply with mild improvement. He saw a plastic surgeon at [facility] on 04/02/18 who is hopeful to close Cuong's surgical wound with a skin flap. He requested additional records of CT scans as well as information on radiation that was done previously and will review these records and decide what to do from there. - Physical Exam Vital Signs Temp Pulse Resp BP 98.1 F 76 18 124/64 H 04/18/18 12:51 04/18/18 12:51 04/18/18 12:51 04/18/18 12:51 General: Alert, Oriented x3, Cooperative, No apparent distress HEENT: Atraumatic, Normocephalic Oral: Moist Mucosa Extremities: Edema Skin: Ulcer/ Wound Wound Measurements and Assessment WC - Nurse 1 - General Ulcer Measurement Start: 04/11/18 12:30 Freq: Status: Active Protocol: Activity Type Activity Date Activity User E-Sign Co-Sign Detail Recorded Client Recorded Date Recorded By Document 04/18/18 12:51 AN [id number] 04/18/18 13:09 AN 04/18/18 12:51 Wound Center Nurse 1 [Ulcer Assessment] #9 Lower Lumbar- Midline -Current Size (cm) - Length 14.0 -Current Size (cm) - Width 4.7 -Current Size (cm) - Depth 0.2 -Total Square Cm 65.80 -Photo Taken No -Epithelialization None Present -Classification - Thickness Full Thickness with Exposed Support Structure -Exudate Amt Medium (34-66%) -Exudate Type Serosanguineous -Wound Margin Distinct, Outline Attached -Granulation Amt Small (1-33%) -Granulation Quality Red -Slough/Fibrin Yes -Necrosis Amt Large (67-100%) -Necrotic Tissue Type Adherent Slough -Structure Exposed Fascia -Texture (Uma-wound Skin Appearance) Assessed Scarring -Moisture (Uma-wound Skin Appearance Assessed ) -Color (Uma-wound Skin Appearance) Erythema -Temperature (Uma-wound Skin No Abnormality Appearance) (Pt Warm) -Tenderness on Palpation (Uma-wound Yes Skin Appearance) -Ulcer Cleansing Rinsed/ Irrigated with Saline -Foul Odor after Cleansing No -Anesthetic Used 4% Lidocaine Solution WC - Nurse 2 - General Ulcer CM Notes Start: 04/11/18 12:30 Freq: Status: Active Protocol: Activity Type Activity Date Activity User E-Sign Co-Sign Detail Recorded Client Recorded Date Recorded By Document 04/18/18 13:19 CS [id number] 04/18/18 13:25 CS 04/18/18 13:19 Wound Center Nurse 2 [Procedure/Treatment] -Time 13:19 -Correct Patient Yes -Correct Side, Site, Position Yes -Correct Procedure Yes -Procedure Performed Yes -Type of Procedure Debridement -Clinical Debridement Subcutaneous -Post Debridement Size (cm) - Length 12.7 -Post Debridement Size (cm) - Width 4.1 -Post Debridement Size (cm) - Depth 0.5 -Total Square Cm 52.07 -Wound/Ulcer Outcome Not Healed -Ulcer Cleansing Rinsed/ Irrigated with Saline -Foul Odor after Cleansing No -Bioengineered Tissue No -Bleeding Controlled with Pressure -Offloading No -Treatment Response Procedure Tolerated Well [See Physician Procedure note for Specifics] Pain Scale: 0-10 Numeric [Pain] -Is Patient Pain Free? Yes Psych/Mental Status: Normal Affect, Appropriate Debridement Note Post-Debridement Measurements/Treatment WC - Nurse 2 - General Ulcer CM Notes Start: 04/11/18 12:30 Freq: Status: Active Protocol: Activity Type Activity Date Activity User E-Sign Co-Sign Detail Recorded Client Recorded Date Recorded By Document 04/11/18 12:50 [id number] 04/11/18 12:56 CS Document 04/18/18 13:19 [id number] 04/18/18 13:25 CS 04/11/18 04/18/18 12:50 13:19 Wound Center Nurse 2 #9 Lower Lumbar- Midline -Time 12:50 13:19 -Correct Patient Yes Yes -Correct Side, Site, Position Yes Yes -Correct Procedure Yes Yes -Procedure Performed Yes Yes -Type of Procedure Debridement Debridement -Clinical Debridement Subcutaneous Subcutaneous -Post Debridement Size (cm) - Length 13.6 12.7 -Post Debridement Size (cm) - Width 4.3 4.1 -Post Debridement Size (cm) - Depth 0.5 0.5 -Total Square Cm 58.48 52.07 -Wound/Ulcer Outcome Not Healed Not Healed -Ulcer Cleansing Rinsed/ Rinsed/ Irrigated with Irrigated with Saline Saline -Foul Odor after Cleansing No No -Bioengineered Tissue No No -Bleeding Controlled with Pressure Pressure -Offloading No No -Treatment Response Procedure Procedure Tolerated Well Tolerated Well Pain Scale: 0-10 Numeric Is Patient Pain Free? Yes Yes Wound debrided: lower lumbar midline Laterality: Not Applicable Type of Debridement: Excisional debridement Anesthesia Used: 4% Lidocaine Solution Depth: Down to and including healthy tissue, in the subcutaneous layer Percentage of wound debrided: 100 Instrument Used: 5mm curette Tissue Removed: yellow slough, devitalized tissue Severity: Fat Layer Exposed Amount of bleeding with debridement: Mild Bleeding Controlled with: Compression and gauze Patient tolerated procedure well Assessment/Plan Active Problems (Last Reviewed 11/19/17 @ 16:27 by Micky Mauro MD) Nonhealing surgical wound (Chronic) Open wound of lower back (Chronic) Chronic kidney disease (Chronic) Assessment: chronic surgical wound dehiscence lumbar with complex abscess and recent surgical debridement. malnutrition. other multiple comorbidities. edema bilateral lower extremities. Bleeding site from within wound controlled with combination of silver nitrate and Surgifoam. Bleeding appears to be controlled. venous insufficiency. immunocompromised status. Plan: Debridement done as documented above. Procedure was well-tolerated. Purapply applications completed. Will have him continue to use Aquacel Extra and will continue to use gauze and ABDs with changes once-twice daily as needed. Will consider reapplying snap vac due to decrease in drainage. CT lumbar spine was negative for abscess/cellulitis. Continue increased protein intake. F/U in [address] Wick.
[2018-04-25 12:36] VITALS: BP 130/57; PULSE 89; RESP 16; TEMP 36.5; BMI 27.8
--- NOTE | 2018-04-25 13:22 | PCM.WC.PN ---
(1) Nonhealing surgical wound Status: Chronic Current Visit: Yes Qualifiers: Encounter type: subsequent encounter Code(s): T81.89XA - Other complications of procedures, not elsewhere classified, initial encounter (2) Open wound of lower back Status: Chronic Current Visit: Yes Code(s): S31.000A - Unspecified open wound of lower back and pelvis without penetration into retroperitoneum, initial encounter (3) Chronic kidney disease Status: Chronic Current Visit: Yes Qualifiers: Chronic kidney disease stage: stage 3 (moderate) Code(s): N18.9 - Chronic kidney disease, unspecified Type of Wound Date of Service: 04/25/18 Chief Complaint: Nonhealing surgical wound of lower back History of Wound: Mr. aMrshall is a 72-yo who has been seen here at the wound center for a nonhealing surgical wound of his lower back s/p surgical debridement for an abscess s/p lumbar spine surgery. His original surgery on his lower back was approximately 18 months ago and he has had multiple complications since that time. He underwent surgical debridement on 03/04/[address] Davila at [facility] in [place] and was discharged with a wound vac for healing by secondary intention with possible muscle flap closure in the future. He followed up with his surgeon on 04/18/17 for further evaluation and recommendations and they plan to close the wound with a muscle flap but he continues to develop infections. He is also being seen by Infectious Disease as needed. CT 02/2018 did not show any abscess. Progress of Wound: Cuong is here for follow-up of his nonhealing surgical wound of his lower back. His wound is stable and shows mild improvement. He continues to be having a significant amount of increased pain in his right low back with some pain into his legs and left foot but this is felt to be from degenerative disease and unrelated to his wound based on recent CT results. His has only been having to change the dressing once daily. Has been using gauze and ABDs and Aquacel. He has had 10 applications of Purapply with mild improvement. He saw a plastic surgeon at [facility] on 04/02/18 who is hopeful to close Cuong's surgical wound with a skin flap. He requested additional records of CT scans as well as information on radiation that was done previously and will review these records and decide what to do from there. Denies increased drainage, odor, fever or chills. - Physical Exam Vital Signs Temp Pulse Resp BP 97.7 F L 89 16 130/57 H 04/25/18 12:36 04/25/18 12:36 04/25/18 12:36 04/25/18 12:36 General: Alert, Oriented x3, Cooperative, No apparent distress HEENT: Atraumatic, Normocephalic Oral: Moist Mucosa Extremities: Edema Skin: Ulcer/ Wound Wound Measurements and Assessment WC - Nurse 1 - General Ulcer Measurement Start: 04/11/18 12:30 Freq: Status: Active Protocol: Activity Type Activity Date Activity User E-Sign Co-Sign Detail Recorded Client Recorded Date Recorded By Document 04/25/18 12:36 [facility] [id number] 04/25/18 12:47 [facility] 04/25/18 12:36 Wound Center Nurse 1 [Ulcer Assessment] #9 Lower Lumbar- Midline -Combined with other wound No -Current Size (cm) - Length 14.4 -Current Size (cm) - Width 4.4 -Current Size (cm) - Depth 1.3 -Total Square Cm 63.36 -Date of Last Picture (Recall this 04/25/18 field) -Photo Taken Yes -Epithelialization None Present -Tunneling No -Undermining/Tunneling No -Circular Undermining No -Exudate Amt Medium (34-66%) -Exudate Type Serous -Wound Margin Thickened & Rolled Under -Granulation Amt Small (1-33%) -Granulation Quality [place] -Slough/Fibrin Yes -Necrosis Amt Large (67-100%) -Necrotic Tissue Type Adherent Slough -Texture (Uma-wound Skin Appearance) Scarring -Moisture (Uma-wound Skin Appearance Assessed ) Dry/Scaly -Color (Uma-wound Skin Appearance) Assessed -Temperature (Uma-wound Skin No Abnormality Appearance) (Pt Warm) -Tenderness on Palpation (Uma-wound No Skin Appearance) -Ulcer Cleansing Wound Cleanser -Foul Odor after Cleansing No -Anesthetic Used 4% Lidocaine Solution WC - Nurse 2 - General Ulcer CM Notes Start: 04/11/18 12:30 Freq: Status: Active Protocol: Activity Type Activity Date Activity User E-Sign Co-Sign Detail Recorded Client Recorded Date Recorded By Document 04/25/18 12:57 [id number] 04/25/18 13:02 04/25/18 12:57 Wound Center Nurse 2 [Procedure/Treatment] -Time 12:57 -Correct Patient Yes -Correct Side, Site, Position Yes -Correct Procedure Yes -Procedure Performed Yes -Type of Procedure Debridement -Clinical Debridement Subcutaneous -Post Debridement Size (cm) - Length 13.3 -Post Debridement Size (cm) - Width 4.5 -Post Debridement Size (cm) - Depth 0.5 -Total Square Cm 59.85 -Wound/Ulcer Outcome Not Healed -Ulcer Cleansing Not Cleansed -Foul Odor after Cleansing No -Bioengineered Tissue No -Bleeding Controlled with Pressure -Offloading No -Treatment Response Procedure Tolerated Well [See Physician Procedure note for Specifics] Pain Scale: 0-10 Numeric [Pain] -Is Patient Pain Free? Yes Psych/Mental Status: Normal Affect, Appropriate Debridement Note Post-Debridement Measurements/Treatment WC - Nurse 2 - General Ulcer CM Notes Start: 04/11/18 12:30 Freq: Status: Active Protocol: Activity Type Activity Date Activity User E-Sign Co-Sign Detail Recorded Client Recorded Date Recorded By Document 04/11/18 12:50 [id number] 04/11/18 12:56 CS Document 04/18/18 13:19 CS [email or web address] 04/18/18 13:25 CS Document 04/25/18 12:57 [id number] 04/25/18 13:02 04/11/18 04/18/18 04/25/18 12:50 13:19 12:57 Wound Center Nurse 2 #9 Lower Lumbar- Midline -Time 12:50 13:19 12:57 -Correct Patient Yes Yes Yes -Correct Side, Site, Position Yes Yes Yes -Correct Procedure Yes Yes Yes -Procedure Performed Yes Yes Yes -Type of Procedure Debridement Debridement Debridement -Clinical Debridement Subcutaneous Subcutaneous Subcutaneous -Post Debridement Size (cm) - Length 13.6 12.7 13.3 -Post Debridement Size (cm) - Width 4.3 4.1 4.5 -Post Debridement Size (cm) - Depth 0.5 0.5 0.5 -Total Square Cm 58.48 52.07 59.85 -Wound/Ulcer Outcome Not Healed Not Healed Not Healed -Ulcer Cleansing Rinsed/ Rinsed/ Not Cleansed Irrigated with Irrigated with Saline Saline -Foul Odor after Cleansing No No No -Bioengineered Tissue No No No -Bleeding Controlled with Pressure Pressure Pressure -Offloading No No No -Treatment Response Procedure Procedure Procedure Tolerated Well Tolerated Well Tolerated Well Pain Scale: 0-10 Numeric Is Patient Pain Free? Yes Yes Yes Wound debrided: lower lumbar midline Laterality: Not Applicable Type of Debridement: Excisional debridement Anesthesia Used: 4% Lidocaine Solution Depth: Down to and including healthy tissue, in the subcutaneous layer Percentage of wound debrided: 100 Instrument Used: 5mm curette Tissue Removed: yellow slough, devitalized tissue Severity: Fat Layer Exposed Amount of bleeding with debridement: Mild Bleeding Controlled with: Compression and gauze Patient tolerated procedure well Assessment/Plan Active Problems (Last Reviewed 11/19/17 @ 16:27 by Micky Mauro MD) Nonhealing surgical wound (Chronic) Open wound of lower back (Chronic) Chronic kidney disease (Chronic) Assessment: chronic surgical wound dehiscence lumbar with complex abscess and recent surgical debridement. malnutrition. other multiple comorbidities. edema bilateral lower extremities. Bleeding site from within wound controlled with combination of silver nitrate and Surgifoam. Bleeding appears to be controlled. venous insufficiency. immunocompromised status. Plan: Debridement done as documented above. Procedure was well-tolerated. Will have him continue to use Aquacel Extra and will continue to use gauze and ABDs with changes once-twice daily as needed. Will consider reapplying snap vac due to decrease in drainag to help with granulation and decreasing the size of the wound next week. CT lumbar spine was negative for abscess/cellulitis. Continue increased protein intake. F/U in [address] Wick.
--- NOTE | 2018-04-25 13:26 | PN.PCM_ITS ---
(1) Nonhealing surgical wound Status: Chronic Current Visit: Yes Qualifiers: Encounter type: subsequent encounter Code(s): T81.89XA - Other complications of procedures, not elsewhere classified, initial encounter (2) Open wound of lower back Status: Chronic Current Visit: Yes Code(s): S31.000A - Unspecified open wound of lower back and pelvis without penetration into retroperitoneum, initial encounter (3) Chronic kidney disease Status: Chronic Current Visit: Yes Qualifiers: Chronic kidney disease stage: stage 3 (moderate) Code(s): N18.9 - Chronic kidney disease, unspecified Type of Wound Date of Service: 04/25/18 Chief Complaint: Nonhealing surgical wound of lower back History of Wound: Mr. Marshall is a 72-yo who has been seen here at the wound center for a nonhealing surgical wound of his lower back s/p surgical debridement for an abscess s/p lumbar spine surgery. His original surgery on his lower back was approximately 18 months ago and he has had multiple complications since that time. He underwent surgical debridement on 03/04/[address] Davila at [facility] in [place] and was discharged with a wound vac for healing by secondary intention with possible muscle flap closure in the future. He followed up with his surgeon on 04/18/17 for further evaluation and recommendations and they plan to close the wound with a muscle flap but he continues to develop infections. He is also being seen by Infectious Disease as needed. CT 02/2018 did not show any abscess. Progress of Wound: Cuong is here for follow-up of his nonhealing surgical wound of his lower back. His wound is stable and shows mild improvement. He continues to be having a significant amount of increased pain in his right low back with some pain into his legs and left foot but this is felt to be from degenerative disease and unrelated to his wound based on recent CT results. His has only been having to change the dressing once daily. Has been using gauze and ABDs and Aquacel. He has had 10 applications of Purapply with mild improvement. He saw a plastic surgeon at [facility] on 04/02/18 who is hopeful to close Cuong's surgical wound with a skin flap. He requested additional records of CT scans as well as information on radiation that was done previously and will review these records and decide what to do from there. Denies increased drainage, odor, fever or chills. - Physical Exam Vital Signs Temp Pulse Resp BP 97.7 F L 89 16 130/57 H 04/25/18 12:36 04/25/18 12:36 04/25/18 12:36 04/25/18 12:36 General: Alert, Oriented x3, Cooperative, No apparent distress HEENT: Atraumatic, Normocephalic Oral: Moist Mucosa Extremities: Edema Skin: Ulcer/ Wound Wound Measurements and Assessment WC - Nurse 1 - General Ulcer Measurement Start: 04/11/18 12:30 Freq: Status: Active Protocol: Activity Type Activity Date Activity User E-Sign Co-Sign Detail Recorded Client Recorded Date Recorded By Document 04/25/18 12:36 [facility] [id number] 04/25/18 12:47 [facility] 04/25/18 12:36 Wound Center Nurse 1 [Ulcer Assessment] #9 Lower Lumbar- Midline -Combined with other wound No -Current Size (cm) - Length 14.4 -Current Size (cm) - Width 4.4 -Current Size (cm) - Depth 1.3 -Total Square Cm 63.36 -Date of Last Picture (Recall this 04/25/18 field) -Photo Taken Yes -Epithelialization None Present -Tunneling No -Undermining/Tunneling No -Circular Undermining No -Exudate Amt Medium (34-66%) -Exudate Type Serous -Wound Margin Thickened & Rolled Under -Granulation Amt Small (1-33%) -Granulation Quality [place] -Slough/Fibrin Yes -Necrosis Amt Large (67-100%) -Necrotic Tissue Type Adherent Slough -Texture (Uma-wound Skin Appearance) Scarring -Moisture (Uma-wound Skin Appearance Assessed ) Dry/Scaly -Color (Uma-wound Skin Appearance) Assessed -Temperature (Uma-wound Skin No Abnormality Appearance) (Pt Warm) -Tenderness on Palpation (Uma-wound No Skin Appearance) -Ulcer Cleansing Wound Cleanser -Foul Odor after Cleansing No -Anesthetic Used 4% Lidocaine Solution WC - Nurse 2 - General Ulcer CM Notes Start: 04/11/18 12:30 Freq: Status: Active Protocol: Activity Type Activity Date Activity User E-Sign Co-Sign Detail Recorded Client Recorded Date Recorded By Document 04/25/18 12:57 [id number] 04/25/18 13:02 04/25/18 12:57 Wound Center Nurse 2 [Procedure/Treatment] -Time 12:57 -Correct Patient Yes -Correct Side, Site, Position Yes -Correct Procedure Yes -Procedure Performed Yes -Type of Procedure Debridement -Clinical Debridement Subcutaneous -Post Debridement Size (cm) - Length 13.3 -Post Debridement Size (cm) - Width 4.5 -Post Debridement Size (cm) - Depth 0.5 -Total Square Cm 59.85 -Wound/Ulcer Outcome Not Healed -Ulcer Cleansing Not Cleansed -Foul Odor after Cleansing No -Bioengineered Tissue No -Bleeding Controlled with Pressure -Offloading No -Treatment Response Procedure Tolerated Well [See Physician Procedure note for Specifics] Pain Scale: 0-10 Numeric [Pain] -Is Patient Pain Free? Yes Psych/Mental Status: Normal Affect, Appropriate Debridement Note Post-Debridement Measurements/Treatment WC - Nurse 2 - General Ulcer CM Notes Start: 04/11/18 12:30 Freq: Status: Active Protocol: Activity Type Activity Date Activity User E-Sign Co-Sign Detail Recorded Client Recorded Date Recorded By Document 04/11/18 12:50 [id number] 04/11/18 12:56 CS Document 04/18/18 13:19 CS [id number] 04/18/18 13:25 CS Document 04/25/18 12:57 [id number] 04/25/18 13:02 04/11/18 04/18/18 04/25/18 12:50 13:19 12:57 Wound Center Nurse 2 #9 Lower Lumbar- Midline -Time 12:50 13:19 12:57 -Correct Patient Yes Yes Yes -Correct Side, Site, Position Yes Yes Yes -Correct Procedure Yes Yes Yes -Procedure Performed Yes Yes Yes -Type of Procedure Debridement Debridement Debridement -Clinical Debridement Subcutaneous Subcutaneous Subcutaneous -Post Debridement Size (cm) - Length 13.6 12.7 13.3 -Post Debridement Size (cm) - Width 4.3 4.1 4.5 -Post Debridement Size (cm) - Depth 0.5 0.5 0.5 -Total Square Cm 58.48 52.07 59.85 -Wound/Ulcer Outcome Not Healed Not Healed Not Healed -Ulcer Cleansing Rinsed/ Rinsed/ Not Cleansed Irrigated with Irrigated with Saline Saline -Foul Odor after Cleansing No No No -Bioengineered Tissue No No No -Bleeding Controlled with Pressure Pressure Pressure -Offloading No No No -Treatment Response Procedure Procedure Procedure Tolerated Well Tolerated Well Tolerated Well Pain Scale: 0-10 Numeric Is Patient Pain Free? Yes Yes Yes Wound debrided: lower lumbar midline Laterality: Not Applicable Type of Debridement: Excisional debridement Anesthesia Used: 4% Lidocaine Solution Depth: Down to and including healthy tissue, in the subcutaneous layer Percentage of wound debrided: 100 Instrument Used: 5mm curette Tissue Removed: yellow slough, devitalized tissue Severity: Fat Layer Exposed Amount of bleeding with debridement: Mild Bleeding Controlled with: Compression and gauze Patient tolerated procedure well Assessment/Plan Active Problems (Last Reviewed 11/19/17 @ 16:27 by Micky Mauro MD) Nonhealing surgical wound (Chronic) Open wound of lower back (Chronic) Chronic kidney disease (Chronic) Assessment: chronic surgical wound dehiscence lumbar with complex abscess and recent surgical debridement. malnutrition. other multiple comorbidities. edema bilateral lower extremities. Bleeding site from within wound controlled with combination of silver nitrate and Surgifoam. Bleeding appears to be controlled. venous insufficiency. immunocompromised status. Plan: Debridement done as documented above. Procedure was well-tolerated. Will have him continue to use Aquacel Extra and will continue to use gauze and ABDs with changes once-twice daily as needed. Will consider reapplying snap vac due to decrease in drainag to help with granulation and decreasing the size of the wound next week. CT lumbar spine was negative for abscess/cellulitis. Continue increased protein intake. F/U in [address] Wick.
[2018-05-02 13:11] VITALS: BP 153/68; PULSE 84; RESP 16; TEMP 36.4; BMI 27.8
--- NOTE | 2018-05-02 16:19 | PCM.WC.PN ---
(1) Nonhealing surgical wound Status: Chronic Current Visit: Yes Qualifiers: Encounter type: subsequent encounter Code(s): T81.89XA - Other complications of procedures, not elsewhere classified, initial encounter (2) Open wound of lower back Status: Chronic Current Visit: Yes Code(s): S31.000A - Unspecified open wound of lower back and pelvis without penetration into retroperitoneum, initial encounter (3) Chronic kidney disease Status: Chronic Current Visit: Yes Qualifiers: Chronic kidney disease stage: stage 3 (moderate) Code(s): N18.9 - Chronic kidney disease, unspecified Type of Wound Date of Service: 05/02/18 Chief Complaint: Nonhealing surgical wound of lower back History of Wound: Mr. Marshall is a 72-yo who has been seen here at the wound center for a nonhealing surgical wound of his lower back s/p surgical debridement for an abscess s/p lumbar spine surgery. His original surgery on his lower back was approximately 18 months ago and he has had multiple complications since that time. He underwent surgical debridement on 03/04/[address] Davila at [facility] in [place] and was discharged with a wound vac for healing by secondary intention with possible muscle flap closure in the future. He followed up with his surgeon on 04/18/17 for further evaluation and recommendations and they plan to close the wound with a muscle flap but he continues to develop infections. He is also being seen by Infectious Disease as needed. CT 02/2018 did not show any abscess. Progress of Wound: Cuong is here for follow-up of his nonhealing surgical wound of his lower back. His wound is stable and shows mild improvement. He continues to be having a significant amount of increased pain in his right low back with some pain into his legs and left foot but this is felt to be from degenerative disease and unrelated to his wound based on recent CT results. His has only been having to change the dressing once daily. Has been using gauze and ABDs and Aquacel. He has had 10 applications of Purapply with mild improvement. He saw a plastic surgeon at [facility] on 04/02/18 who is hopeful to close Cuong's surgical wound with a skin flap. He requested additional records of CT scans as well as information on radiation that was done previously and will review these records and decide what to do from there. Denies increased drainage, odor, fever or chills. - Physical Exam Vital Signs Temp Pulse Resp BP 97.5 F L 84 16 153/68 H 05/02/18 13:11 05/02/18 13:11 05/02/18 13:11 05/02/18 13:11 General: Alert, Oriented x3, Cooperative, No apparent distress HEENT: Atraumatic, Normocephalic Oral: Moist Mucosa Skin: Ulcer/ Wound Wound Measurements and Assessment WC - Nurse 1 - General Ulcer Measurement Start: 04/11/18 12:30 Freq: Status: Active Protocol: Activity Type Activity Date Activity User E-Sign Co-Sign Detail Recorded Client Recorded Date Recorded By Document 05/02/18 13:11 [facility] [id number] 05/02/18 13:16 [facility] 05/02/18 13:11 Wound Center Nurse 1 [Ulcer Assessment] #9 Lower Lumbar- Midline -Combined with other wound No -Current Size (cm) - Length 13.9 -Current Size (cm) - Width 4.2 -Current Size (cm) - Depth 0.5 -Total Square Cm 58.38 -Date of Last Picture (Recall this 05/02/18 field) -Photo Taken Yes -Epithelialization None Present -Tunneling No -Undermining/Tunneling No -Circular Undermining No -Exudate Amt Medium (34-66%) -Exudate Type Serosanguineous -Wound Margin Thickened & Rolled Under -Granulation Amt Large (67-100%) -Granulation Quality [place] -Slough/Fibrin Yes -Necrosis Amt Medium (34-66%) -Necrotic Tissue Type Adherent Slough -Texture (Uma-wound Skin Appearance) Scarring -Moisture (Uma-wound Skin Appearance Dry/Scaly ) -Color (Uma-wound Skin Appearance) Assessed -Temperature (Uma-wound Skin No Abnormality Appearance) (Pt Warm) -Tenderness on Palpation (Uma-wound No Skin Appearance) -Ulcer Cleansing Wound Cleanser -Foul Odor after Cleansing No -Anesthetic Used 4% Lidocaine Solution - Nurse 2 - General Ulcer CM Notes Start: 04/11/18 12:30 Freq: Status: Active Protocol: Activity Type Activity Date Activity User E-Sign Co-Sign Detail Recorded Client Recorded Date Recorded By Document 05/02/18 13:36 [id number] 05/02/18 13:42 05/02/18 13:36 Wound Center Nurse 2 [Procedure/Treatment] -Time 13:36 -Correct Patient Yes -Correct Side, Site, Position Yes -Correct Procedure Yes -Procedure Performed Yes -Type of Procedure Debridement -Clinical Debridement Subcutaneous -Post Debridement Size (cm) - Length 13.2 -Post Debridement Size (cm) - Width 4.2 -Post Debridement Size (cm) - Depth 0.5 -Total Square Cm 55.44 -Wound/Ulcer Outcome Not Healed -Ulcer Cleansing Not Cleansed -Foul Odor after Cleansing No -Bioengineered Tissue No -Bleeding Controlled with Pressure -Offloading No -Treatment Response Procedure Tolerated Well [See Physician Procedure note for Specifics] Pain Scale: 0-10 Numeric [Pain] -Is Patient Pain Free? Yes Psych/Mental Status: Normal Affect, Appropriate Debridement Note Post-Debridement Measurements/Treatment WC - Nurse 2 - General Ulcer CM Notes Start: 04/11/18 12:30 Freq: Status: Active Protocol: Activity Type Activity Date Activity User E-Sign Co-Sign Detail Recorded Client Recorded Date Recorded By Document 04/11/18 12:50 [id number] 04/11/18 12:56 CS Document 04/18/18 13:19 CS [id number] 04/18/18 13:25 CS Document 04/25/18 12:57 [id number] 04/25/18 13:02 CS Document 05/02/18 13:36 [id number] 05/02/18 13:42 04/11/18 04/18/18 04/25/18 12:50 13:19 12:57 Wound Center Nurse 2 #9 Lower Lumbar- Midline -Time 12:50 13:19 12:57 -Correct Patient Yes Yes Yes -Correct Side, Site, Position Yes Yes Yes -Correct Procedure Yes Yes Yes -Procedure Performed Yes Yes Yes -Type of Procedure Debridement Debridement Debridement -Clinical Debridement Subcutaneous Subcutaneous Subcutaneous -Post Debridement Size (cm) - Length 13.6 12.7 13.3 -Post Debridement Size (cm) - Width 4.3 4.1 4.5 -Post Debridement Size (cm) - Depth 0.5 0.5 0.5 -Total Square Cm 58.48 52.07 59.85 -Wound/Ulcer Outcome Not Healed Not Healed Not Healed -Ulcer Cleansing Rinsed/ Rinsed/ Not Cleansed Irrigated with Irrigated with Saline Saline -Foul Odor after Cleansing No No No -Bioengineered Tissue No No No -Bleeding Controlled with Pressure Pressure Pressure -Offloading No No No -Treatment Response Procedure Procedure Procedure Tolerated Well Tolerated Well Tolerated Well Pain Scale: 0-10 Numeric Is Patient Pain Free? Yes Yes Yes 05/02/18 13:36 Wound Center Nurse 2 #9 Lower Lumbar- Midline -Time 13:36 -Correct Patient Yes -Correct Side, Site, Position Yes -Correct Procedure Yes -Procedure Performed Yes -Type of Procedure Debridement -Clinical Debridement Subcutaneous -Post Debridement Size (cm) - Length 13.2 -Post Debridement Size (cm) - Width 4.2 -Post Debridement Size (cm) - Depth 0.5 -Total Square Cm 55.44 -Wound/Ulcer Outcome Not Healed -Ulcer Cleansing Not Cleansed -Foul Odor after Cleansing No -Bioengineered Tissue No -Bleeding Controlled with Pressure -Offloading No -Treatment Response Procedure Tolerated Well Pain Scale: 0-10 Numeric Is Patient Pain Free? Yes Wound debrided: lower lumbar midline Laterality: Not Applicable Type of Debridement: Excisional debridement Anesthesia Used: 4% Lidocaine Solution Depth: Down to and including healthy tissue, in the subcutaneous layer Percentage of wound debrided: 100 Instrument Used: 5mm curette Tissue Removed: yellow slough, devitalized tissue Severity: Fat Layer Exposed Amount of bleeding with debridement: Mild Bleeding Controlled with: Compression and gauze Patient tolerated procedure well Assessment/Plan Active Problems (Last Reviewed 11/19/17 @ 16:27 by Micky Mauro MD) Nonhealing surgical wound (Chronic) Open wound of lower back (Chronic) Chronic kidney disease (Chronic) Assessment: chronic surgical wound dehiscence lumbar with complex abscess and recent surgical debridement. malnutrition. other multiple comorbidities. edema bilateral lower extremities. Bleeding site from within wound controlled with combination of silver nitrate and Surgifoam. Bleeding appears to be controlled. venous insufficiency. immunocompromised status. Plan: Debridement done as documented above. Procedure was well-tolerated. Snap-vac applied today to help pull away drainage and decrease surface area of wound. If vac loses seal will use Aquacel Extra and will use gauze and ABDs with changes once-twice daily as needed. CT lumbar spine was negative for abscess/cellulitis. Continue increased protein intake. F/U in [address] Wick.
--- NOTE | 2018-05-02 16:23 | PN.PCM_ITS ---
(1) Nonhealing surgical wound Status: Chronic Current Visit: Yes Qualifiers: Encounter type: subsequent encounter Code(s): T81.89XA - Other complications of procedures, not elsewhere classified, initial encounter (2) Open wound of lower back Status: Chronic Current Visit: Yes Code(s): S31.000A - Unspecified open wound of lower back and pelvis without penetration into retroperitoneum, initial encounter (3) Chronic kidney disease Status: Chronic Current Visit: Yes Qualifiers: Chronic kidney disease stage: stage 3 (moderate) Code(s): N18.9 - Chronic kidney disease, unspecified Type of Wound Date of Service: 05/02/18 Chief Complaint: Nonhealing surgical wound of lower back History of Wound: Mr. Marshall is a 72-yo who has been seen here at the wound center for a nonhealing surgical wound of his lower back s/p surgical debridement for an abscess s/p lumbar spine surgery. His original surgery on his lower back was approximately 18 months ago and he has had multiple complications since that time. He underwent surgical debridement on 03/04/[address] Davila at [facility] in [place] and was discharged with a wound vac for healing by secondary intention with possible muscle flap closure in the future. He followed up with his surgeon on 04/18/17 for further evaluation and recommendations and they plan to close the wound with a muscle flap but he continues to develop infections. He is also being seen by Infectious Disease as needed. CT 02/2018 did not show any abscess. Progress of Wound: Cuong is here for follow-up of his nonhealing surgical wound of his lower back. His wound is stable and shows mild improvement. He continues to be having a significant amount of increased pain in his right low back with some pain into his legs and left foot but this is felt to be from degenerative disease and unrelated to his wound based on recent CT results. His has only been having to change the dressing once daily. Has been using gauze and ABDs and Aquacel. He has had 10 applications of Purapply with mild improvement. He saw a plastic surgeon at [facility] on 04/02/18 who is hopeful to close Cuong's surgical wound with a skin flap. He requested additional records of CT scans as well as information on radiation that was done previously and will review these records and decide what to do from there. Denies increased drainage, odor, fever or chills. - Physical Exam Vital Signs Temp Pulse Resp BP 97.5 F L 84 16 153/68 H 05/02/18 13:11 05/02/18 13:11 05/02/18 13:11 05/02/18 13:11 General: Alert, Oriented x3, Cooperative, No apparent distress HEENT: Atraumatic, Normocephalic Oral: Moist Mucosa Skin: Ulcer/ Wound Wound Measurements and Assessment WC - Nurse 1 - General Ulcer Measurement Start: 04/11/18 12:30 Freq: Status: Active Protocol: Activity Type Activity Date Activity User E-Sign Co-Sign Detail Recorded Client Recorded Date Recorded By Document 05/02/18 13:11 [facility] [id number] 05/02/18 13:16 [facility] 05/02/18 13:11 Wound Center Nurse 1 [Ulcer Assessment] #9 Lower Lumbar- Midline -Combined with other wound No -Current Size (cm) - Length 13.9 -Current Size (cm) - Width 4.2 -Current Size (cm) - Depth 0.5 -Total Square Cm 58.38 -Date of Last Picture (Recall this 05/02/18 field) -Photo Taken Yes -Epithelialization None Present -Tunneling No -Undermining/Tunneling No -Circular Undermining No -Exudate Amt Medium (34-66%) -Exudate Type Serosanguineous -Wound Margin Thickened & Rolled Under -Granulation Amt Large (67-100%) -Granulation Quality [place] -Slough/Fibrin Yes -Necrosis Amt Medium (34-66%) -Necrotic Tissue Type Adherent Slough -Texture (Uma-wound Skin Appearance) Scarring -Moisture (Uma-wound Skin Appearance Dry/Scaly ) -Color (Uma-wound Skin Appearance) Assessed -Temperature (Uma-wound Skin No Abnormality Appearance) (Pt Warm) -Tenderness on Palpation (Uma-wound No Skin Appearance) -Ulcer Cleansing Wound Cleanser -Foul Odor after Cleansing No -Anesthetic Used 4% Lidocaine Solution - Nurse 2 - General Ulcer CM Notes Start: 04/11/18 12:30 Freq: Status: Active Protocol: Activity Type Activity Date Activity User E-Sign Co-Sign Detail Recorded Client Recorded Date Recorded By Document 05/02/18 13:36 [id number] 05/02/18 13:42 05/02/18 13:36 Wound Center Nurse 2 [Procedure/Treatment] -Time 13:36 -Correct Patient Yes -Correct Side, Site, Position Yes -Correct Procedure Yes -Procedure Performed Yes -Type of Procedure Debridement -Clinical Debridement Subcutaneous -Post Debridement Size (cm) - Length 13.2 -Post Debridement Size (cm) - Width 4.2 -Post Debridement Size (cm) - Depth 0.5 -Total Square Cm 55.44 -Wound/Ulcer Outcome Not Healed -Ulcer Cleansing Not Cleansed -Foul Odor after Cleansing No -Bioengineered Tissue No -Bleeding Controlled with Pressure -Offloading No -Treatment Response Procedure Tolerated Well [See Physician Procedure note for Specifics] Pain Scale: 0-10 Numeric [Pain] -Is Patient Pain Free? Yes Psych/Mental Status: Normal Affect, Appropriate Debridement Note Post-Debridement Measurements/Treatment WC - Nurse 2 - General Ulcer CM Notes Start: 04/11/18 12:30 Freq: Status: Active Protocol: Activity Type Activity Date Activity User E-Sign Co-Sign Detail Recorded Client Recorded Date Recorded By Document 04/11/18 12:50 [id number] 04/11/18 12:56 CS Document 04/18/18 13:19 CS [id number] 04/18/18 13:25 CS Document 04/25/18 12:57 [id number] 04/25/18 13:02 CS Document 05/02/18 13:36 [id number] 05/02/18 13:42 04/11/18 04/18/18 04/25/18 12:50 13:19 12:57 Wound Center Nurse 2 #9 Lower Lumbar- Midline -Time 12:50 13:19 12:57 -Correct Patient Yes Yes Yes -Correct Side, Site, Position Yes Yes Yes -Correct Procedure Yes Yes Yes -Procedure Performed Yes Yes Yes -Type of Procedure Debridement Debridement Debridement -Clinical Debridement Subcutaneous Subcutaneous Subcutaneous -Post Debridement Size (cm) - Length 13.6 12.7 13.3 -Post Debridement Size (cm) - Width 4.3 4.1 4.5 -Post Debridement Size (cm) - Depth 0.5 0.5 0.5 -Total Square Cm 58.48 52.07 59.85 -Wound/Ulcer Outcome Not Healed Not Healed Not Healed -Ulcer Cleansing Rinsed/ Rinsed/ Not Cleansed Irrigated with Irrigated with Saline Saline -Foul Odor after Cleansing No No No -Bioengineered Tissue No No No -Bleeding Controlled with Pressure Pressure Pressure -Offloading No No No -Treatment Response Procedure Procedure Procedure Tolerated Well Tolerated Well Tolerated Well Pain Scale: 0-10 Numeric Is Patient Pain Free? Yes Yes Yes 05/02/18 13:36 Wound Center Nurse 2 #9 Lower Lumbar- Midline -Time 13:36 -Correct Patient Yes -Correct Side, Site, Position Yes -Correct Procedure Yes -Procedure Performed Yes -Type of Procedure Debridement -Clinical Debridement Subcutaneous -Post Debridement Size (cm) - Length 13.2 -Post Debridement Size (cm) - Width 4.2 -Post Debridement Size (cm) - Depth 0.5 -Total Square Cm 55.44 -Wound/Ulcer Outcome Not Healed -Ulcer Cleansing Not Cleansed -Foul Odor after Cleansing No -Bioengineered Tissue No -Bleeding Controlled with Pressure -Offloading No -Treatment Response Procedure Tolerated Well Pain Scale: 0-10 Numeric Is Patient Pain Free? Yes Wound debrided: lower lumbar midline Laterality: Not Applicable Type of Debridement: Excisional debridement Anesthesia Used: 4% Lidocaine Solution Depth: Down to and including healthy tissue, in the subcutaneous layer Percentage of wound debrided: 100 Instrument Used: 5mm curette Tissue Removed: yellow slough, devitalized tissue Severity: Fat Layer Exposed Amount of bleeding with debridement: Mild Bleeding Controlled with: Compression and gauze Patient tolerated procedure well Assessment/Plan Active Problems (Last Reviewed 11/19/17 @ 16:27 by Micky Mauro MD) Nonhealing surgical wound (Chronic) Open wound of lower back (Chronic) Chronic kidney disease (Chronic) Assessment: chronic surgical wound dehiscence lumbar with complex abscess and recent surgical debridement. malnutrition. other multiple comorbidities. edema bilateral lower extremities. Bleeding site from within wound controlled with combination of silver nitrate and Surgifoam. Bleeding appears to be controlled. venous insufficiency. immunocompromised status. Plan: Debridement done as documented above. Procedure was well-tolerated. Snap-vac applied today to help pull away drainage and decrease surface area of wound. If vac loses seal will use Aquacel Extra and will use gauze and ABDs with changes once-twice daily as needed. CT lumbar spine was negative for abscess/cellulitis. Continue increased protein intake. F/U in [address] Wick.
== END 2018-05-05 23:59 ==
LOC: WC 13:15
PROVIDERS: Family Provider Family Medicine; PCP Family Medicine; Referring Provider Family Medicine; Visit Provider Family Medicine
DX: T81.30XA Disruption of wound, unspecified, initial encounter (principal); L03.312 Cellulitis of back [any part except buttock and flank]; Y83.8 Other surgical procedures as the cause of abnormal reaction of the patient, or of later complication, without mention of misadventure at the time of the procedure; I87.2 Venous insufficiency (chronic) (peripheral); N18.3 Chronic kidney disease, stage 3 (moderate)
CPT/HCPCS: 11042; 11045; 97608

== ENCOUNTER → 2018-05-05 10:57 | Outpatient (CLI) | payer MEDICARE, OTHER, SELFPAY ==
[2015-10-31 10:00] VITALS: BMI 34.9
[2018-04-21 13:47] VITALS: BMI 27.8
[2018-05-02 13:11] VITALS: BMI 27.8
[2018-05-05 11:10] VITALS: BP 137/68; PULSE 90; RESP 16; TEMP 36.8; O2SAT 97; BMI 28.1
[2018-05-05 11:34] LABS: Hematocrit 29.9 % (40-54); Hemoglobin 9.5 g/dl (13.0-16.5)
== END ==
PROVIDERS: Family Provider Family Medicine; PCP Family Medicine; Referring Provider Internal Medicine Nephrology; Visit Provider Internal Medicine Nephrology
DX: N18.3 Chronic kidney disease, stage 3 (moderate) (principal); D63.1 Anemia in chronic kidney disease
CPT/HCPCS: 36415; 85014; 85018; 96372; J0885

== ENCOUNTER → 2018-05-19 11:27 | Outpatient (CLI) | payer MEDICARE, OTHER, SELFPAY ==
[2015-10-31 10:00] VITALS: BMI 34.9
[2018-05-05 11:10] VITALS: BMI 28.1
[2018-05-16 11:15] VITALS: BMI 27.8
[2018-05-19 11:55] VITALS: BP 128/70; PULSE 72; RESP 16; TEMP 36.3; O2SAT 93; BMI 27.8
[2018-05-19 11:58] LABS: Hematocrit 29.6 % (40-54); Hemoglobin 9.3 g/dl (13.0-16.5)
[2018-05-19 12:31] LABS: Albumin, Serum 2.9 g/dL (3.2-5.0); BUN 31 mg/dL (7-18); BUN/Creat Ratio 30.1 RATIO (10-20); Calcium,Total 8.1 mg/dL (8.5-10.1); Chloride 101 mmol/L (98-107); Creatinine, Serum 1.03 mg/dL (0.70-1.30); EST Glomerular Filtration Rate 75 mL/min (>60); Est Glom Filt Rate - Afr Amer 91 mL/min (>60); Ferritin 182 ng/mL (26-388); Glucose 93 mg/dL (74-106); Iron 59 ug/dL (65-175); Iron Binding Capacity,Total 238 ug/dL (250-450); PERCENT IRON SATURATION 24.8 % (15.0-55.0); Phosphorus 2.9 mg/dL (2.5-4.9); Potassium 4.3 mmol/L (3.5-5.1); Sodium Level 137 mmol/L (136-145)
== END ==
PROVIDERS: Family Provider Family Medicine; PCP Family Medicine; Referring Provider Internal Medicine Nephrology; Visit Provider Internal Medicine Nephrology
DX: N18.3 Chronic kidney disease, stage 3 (moderate) (principal); D63.1 Anemia in chronic kidney disease
CPT/HCPCS: 36415; 80069; 82728; 83540; 83550; 85014; 85018; 96372; J0885

== ENCOUNTER 2018-05-30 13:00 | Outpatient (RCR) | payer MEDICARE, OTHER, SELFPAY ==
[2015-10-31 10:00] VITALS: BMI 34.9
[2018-05-06 00:38] VITALS: BP 153/68; PULSE 84; RESP 16; TEMP 36.4; BMI 27.8
[2018-05-09 13:49] VITALS: BP 131/72; PULSE 80; RESP 20; TEMP 36.4; BMI 27.8
--- NOTE | 2018-05-09 18:27 | PCM.WC.PN ---
(1) Nonhealing surgical wound Status: Chronic Current Visit: Yes Qualifiers: Encounter type: subsequent encounter Code(s): T81.89XA - Other complications of procedures, not elsewhere classified, initial encounter (2) Open wound of lower back Status: Chronic Current Visit: Yes Code(s): S31.000A - Unspecified open wound of lower back and pelvis without penetration into retroperitoneum, initial encounter Type of Wound Date of Service: 05/09/18 Chief Complaint: Nonhealing surgical wound of lower back History of Wound: Mr. Marshall is a 72-yo who has been seen here at the wound center for a nonhealing surgical wound of his lower back s/p surgical debridement for an abscess s/p lumbar spine surgery. His original surgery on his lower back was approximately 18 months ago and he has had multiple complications since that time. He underwent surgical debridement on 03/04/[address] Davila at [facility] in [place] and was discharged with a wound vac for healing by secondary intention with possible muscle flap closure in the future. He followed up with his surgeon on 04/18/17 for further evaluation and recommendations and they plan to close the wound with a muscle flap but he continues to develop infections. He is also being seen by Infectious Disease as needed. CT 02/2018 did not show any abscess. Progress of Wound: Cuong is here for follow-up of his nonhealing surgical wound of his lower back. His wound is stable and shows mild improvement. The snap vac did not last past Saturday evening. He did not think that it lost suction but he could not get the suction device to turn back to green. His used Aquacel extra and gauze and ABDs. He has had 10 applications of Purapply with mild improvement. He saw a plastic surgeon at [facility] on 04/02/18 who is hopeful to close Cuong's surgical wound with a skin flap. He requested additional records of CT scans as well as information on radiation that was done previously and will review these records and decide what to do from there. Denies increased drainage, odor, fever or chills. - Physical Exam Vital Signs Temp Pulse Resp BP 97.6 F L 80 20 H 131/72 H 05/09/18 13:49 05/09/18 13:49 05/09/18 13:49 05/09/18 13:49 General: Alert, Oriented x3, Cooperative, No apparent distress HEENT: Atraumatic, Normocephalic Oral: Moist Mucosa Skin: Ulcer/ Wound Wound Measurements and Assessment - Nurse 1 - General Ulcer Measurement Start: 05/09/18 13:49 Freq: Status: Active Protocol: Activity Type Activity Date Activity User E-Sign Co-Sign Detail Recorded Client Recorded Date Recorded By Document 05/09/18 13:49 AN [id number] 05/09/18 14:04 AN 05/09/18 13:49 Wound Center Nurse 1 [Ulcer Assessment] #9 Lower Lumbar- Midline -Current Size (cm) - Length 14.4 -Current Size (cm) - Width 4.2 -Current Size (cm) - Depth 0.2 -Total Square Cm 60.48 -Photo Taken No -Epithelialization None Present -Classification - Thickness Full Thickness with Exposed Support Structure -Exudate Amt Medium (34-66%) -Exudate Type Purulent -Wound Margin Distinct, Outline Attached -Granulation Amt Small (1-33%) -Granulation Quality [place] Red -Slough/Fibrin Yes -Necrosis Amt Large (67-100%) -Necrotic Tissue Type Eschar - Nurse 2 - General Ulcer CM Notes Start: 05/09/18 13:49 Freq: Status: Active Protocol: Activity Type Activity Date Activity User E-Sign Co-Sign Detail Recorded Client Recorded Date Recorded By Document 05/09/18 14:09 [id number] 05/09/18 14:25 05/09/18 14:09 Wound Center Nurse 2 [Procedure/Treatment] -Time 14:09 -Correct Patient Yes -Correct Side, Site, Position Yes -Correct Procedure Yes -Procedure Performed Yes -Type of Procedure Debridement -Clinical Debridement Subcutaneous -Post Debridement Size (cm) - Length 13.4 -Post Debridement Size (cm) - Width 4 -Post Debridement Size (cm) - Depth 0.5 -Total Square Cm 53.6 -Wound/Ulcer Outcome Not Healed -Ulcer Cleansing Rinsed/ Irrigated with Saline -Foul Odor after Cleansing No -Bioengineered Tissue No -Bleeding Controlled with Pressure SURGIFOAM -Offloading No -Treatment Response Procedure Tolerated Well [See Physician Procedure note for Specifics] Pain Scale: 0-10 Numeric [Pain] -Is Patient Pain Free? Yes Psych/Mental Status: Normal Affect, Appropriate Debridement Note Post-Debridement Measurements/Treatment - Nurse 2 - General Ulcer CM Notes Start: 05/09/18 13:49 Freq: Status: Active Protocol: Activity Type Activity Date Activity User E-Sign Co-Sign Detail Recorded Client Recorded Date Recorded By Document 05/09/18 14:09 [id number] 05/09/18 14:25 05/09/18 14:09 Wound Center Nurse 2 #9 Lower Lumbar- Midline -Time 14:09 -Correct Patient Yes -Correct Side, Site, Position Yes -Correct Procedure Yes -Procedure Performed Yes -Type of Procedure Debridement -Clinical Debridement Subcutaneous -Post Debridement Size (cm) - Length 13.4 -Post Debridement Size (cm) - Width 4 -Post Debridement Size (cm) - Depth 0.5 -Total Square Cm 53.6 -Wound/Ulcer Outcome Not Healed -Ulcer Cleansing Rinsed/ Irrigated with Saline -Foul Odor after Cleansing No -Bioengineered Tissue No -Bleeding Controlled with Pressure SURGIFOAM -Offloading No -Treatment Response Procedure Tolerated Well Pain Scale: 0-10 Numeric Is Patient Pain Free? Yes Wound debrided: lower lumbar midline Laterality: Not Applicable Type of Debridement: Excisional debridement Anesthesia Used: 4% Lidocaine Solution Depth: Down to and including healthy tissue, in the subcutaneous layer Percentage of wound debrided: 100 Instrument Used: 7mm curette Tissue Removed: yellow slough, devitalized tissue Severity: Fat Layer Exposed Amount of bleeding with debridement: Moderate Bleeding Controlled with: Gel Foam Patient tolerated procedure well Assessment/Plan Active Problems (Last Reviewed 11/19/17 @ 16:27 by Micky Mauro MD) Nonhealing surgical wound (Chronic) Open wound of lower back (Chronic) Assessment: chronic surgical wound dehiscence lumbar with complex abscess and recent surgical debridement. malnutrition. other multiple comorbidities. edema bilateral lower extremities. Bleeding site from within wound controlled with combination of silver nitrate and Surgifoam. Bleeding appears to be controlled. venous insufficiency. immunocompromised status. Plan: Debridement done as documented above. Procedure was well-tolerated. Snap-vac applied again today with larger volume canister to help pull away drainage and decrease surface area of wound. If vac loses seal will use Aquacel Extra and will use gauze and ABDs with changes once-twice daily as needed. CT lumbar spine was negative for abscess/cellulitis. Continue increased protein intake. F/U in [address] Wick.
--- NOTE | 2018-05-09 18:31 | PN.PCM_ITS ---
(1) Nonhealing surgical wound Status: Chronic Current Visit: Yes Qualifiers: Encounter type: subsequent encounter Code(s): T81.89XA - Other complications of procedures, not elsewhere classified, initial encounter (2) Open wound of lower back Status: Chronic Current Visit: Yes Code(s): S31.000A - Unspecified open wound of lower back and pelvis without penetration into retroperitoneum, initial encounter Type of Wound Date of Service: 05/09/18 Chief Complaint: Nonhealing surgical wound of lower back History of Wound: Mr. Marshall is a 72-yo who has been seen here at the wound center for a nonhealing surgical wound of his lower back s/p surgical debridement for an abscess s/p lumbar spine surgery. His original surgery on his lower back was approximately 18 months ago and he has had multiple complications since that time. He underwent surgical debridement on 03/04/[address] Davila at [facility] in [place] and was discharged with a wound vac for healing by secondary intention with possible muscle flap closure in the future. He followed up with his surgeon on 04/18/17 for further evaluation and recommendations and they plan to close the wound with a muscle flap but he continues to develop infections. He is also being seen by Infectious Disease as needed. CT 02/2018 did not show any abscess. Progress of Wound: Cuong is here for follow-up of his nonhealing surgical wound of his lower back. His wound is stable and shows mild improvement. The snap vac did not last past Saturday evening. He did not think that it lost suction but he could not get the suction device to turn back to green. His used Aquacel extra and gauze and ABDs. He has had 10 applications of Purapply with mild improvement. He saw a plastic surgeon at the [facility] on 04/02/18 who is hopeful to close Cuong's surgical wound with a skin flap. He requested additional records of CT scans as well as information on radiation that was done previously and will review these records and decide what to do from there. Denies increased drainage, odor, fever or chills. - Physical Exam Vital Signs Temp Pulse Resp BP 97.6 F L 80 20 H 131/72 H 05/09/18 13:49 05/09/18 13:49 05/09/18 13:49 05/09/18 13:49 General: Alert, Oriented x3, Cooperative, No apparent distress HEENT: Atraumatic, Normocephalic Oral: Moist Mucosa Skin: Ulcer/ Wound Wound Measurements and Assessment - Nurse 1 - General Ulcer Measurement Start: 05/09/18 13:49 Freq: Status: Active Protocol: Activity Type Activity Date Activity User E-Sign Co-Sign Detail Recorded Client Recorded Date Recorded By Document 05/09/18 13:49 AN [id number] 05/09/18 14:04 AN 05/09/18 13:49 Wound Center Nurse 1 [Ulcer Assessment] #9 Lower Lumbar- Midline -Current Size (cm) - Length 14.4 -Current Size (cm) - Width 4.2 -Current Size (cm) - Depth 0.2 -Total Square Cm 60.48 -Photo Taken No -Epithelialization None Present -Classification - Thickness Full Thickness with Exposed Support Structure -Exudate Amt Medium (34-66%) -Exudate Type Purulent -Wound Margin Distinct, Outline Attached -Granulation Amt Small (1-33%) -Granulation Quality [place] Red -Slough/Fibrin Yes -Necrosis Amt Large (67-100%) -Necrotic Tissue Type Eschar - Nurse 2 - General Ulcer CM Notes Start: 05/09/18 13:49 Freq: Status: Active Protocol: Activity Type Activity Date Activity User E-Sign Co-Sign Detail Recorded Client Recorded Date Recorded By Document 05/09/18 14:09 [id number] 05/09/18 14:25 05/09/18 14:09 Wound Center Nurse 2 [Procedure/Treatment] -Time 14:09 -Correct Patient Yes -Correct Side, Site, Position Yes -Correct Procedure Yes -Procedure Performed Yes -Type of Procedure Debridement -Clinical Debridement Subcutaneous -Post Debridement Size (cm) - Length 13.4 -Post Debridement Size (cm) - Width 4 -Post Debridement Size (cm) - Depth 0.5 -Total Square Cm 53.6 -Wound/Ulcer Outcome Not Healed -Ulcer Cleansing Rinsed/ Irrigated with Saline -Foul Odor after Cleansing No -Bioengineered Tissue No -Bleeding Controlled with Pressure SURGIFOAM -Offloading No -Treatment Response Procedure Tolerated Well [See Physician Procedure note for Specifics] Pain Scale: 0-10 Numeric [Pain] -Is Patient Pain Free? Yes Psych/Mental Status: Normal Affect, Appropriate Debridement Note Post-Debridement Measurements/Treatment - Nurse 2 - General Ulcer CM Notes Start: 05/09/18 13:49 Freq: Status: Active Protocol: Activity Type Activity Date Activity User E-Sign Co-Sign Detail Recorded Client Recorded Date Recorded By Document 05/09/18 14:09 [id number] 05/09/18 14:25 CS 05/09/18 14:09 Wound Center Nurse 2 #9 Lower Lumbar- Midline -Time 14:09 -Correct Patient Yes -Correct Side, Site, Position Yes -Correct Procedure Yes -Procedure Performed Yes -Type of Procedure Debridement -Clinical Debridement Subcutaneous -Post Debridement Size (cm) - Length 13.4 -Post Debridement Size (cm) - Width 4 -Post Debridement Size (cm) - Depth 0.5 -Total Square Cm 53.6 -Wound/Ulcer Outcome Not Healed -Ulcer Cleansing Rinsed/ Irrigated with Saline -Foul Odor after Cleansing No -Bioengineered Tissue No -Bleeding Controlled with Pressure SURGIFOAM -Offloading No -Treatment Response Procedure Tolerated Well Pain Scale: 0-10 Numeric Is Patient Pain Free? Yes Wound debrided: lower lumbar midline Laterality: Not Applicable Type of Debridement: Excisional debridement Anesthesia Used: 4% Lidocaine Solution Depth: Down to and including healthy tissue, in the subcutaneous layer Percentage of wound debrided: 100 Instrument Used: 7mm curette Tissue Removed: yellow slough, devitalized tissue Severity: Fat Layer Exposed Amount of bleeding with debridement: Moderate Bleeding Controlled with: Gel Foam Patient tolerated procedure well Assessment/Plan Active Problems (Last Reviewed 11/19/17 @ 16:27 by Micky Mauro MD) Nonhealing surgical wound (Chronic) Open wound of lower back (Chronic) Assessment: chronic surgical wound dehiscence lumbar with complex abscess and recent surgical debridement. malnutrition. other multiple comorbidities. edema bilateral lower extremities. Bleeding site from within wound controlled with combination of silver nitrate and Surgifoam. Bleeding appears to be c ontrolled. venous insufficiency. immunocompromised status. Plan: Debridement done as documented above. Procedure was well-tolerated. Snap-vac applied again today with larger volume canister to help pull away drainage and decrease surface area of wound. If vac loses seal will use Aquacel Extra and will use gauze and ABDs with changes once-twice daily as needed. CT lumbar spine was negative for abscess/cellulitis. Continue increased protein intake. F/U in [address] Wick.
[2018-05-16 11:15] VITALS: BP 138/77; PULSE 75; RESP 16; TEMP 35.1; BMI 27.8
--- NOTE | 2018-05-16 15:58 | PCM.WC.PN ---
(1) Nonhealing surgical wound Status: Chronic Current Visit: Yes Qualifiers: Encounter type: subsequent encounter Code(s): T81.89XA - Other complications of procedures, not elsewhere classified, initial encounter (2) Open wound of lower back Status: Chronic Current Visit: Yes Code(s): S31.000A - Unspecified open wound of lower back and pelvis without penetration into retroperitoneum, initial encounter Type of Wound Date of Service: 05/16/18 Chief Complaint: Nonhealing surgical wound of lower back History of Wound: Mr. Marshall is a 72-yo who has been seen here at the wound center for a nonhealing surgical wound of his lower back s/p surgical debridement for an abscess s/p lumbar spine surgery. His original surgery on his lower back was approximately 18 months ago and he has had multiple complications since that time. He underwent surgical debridement on 03/04/[address] Davila at [facility] in [place] and was discharged with a wound vac for healing by secondary intention with possible muscle flap closure in the future. He followed up with his surgeon on 04/18/17 for further evaluation and recommendations and they plan to close the wound with a muscle flap but he continues to develop infections. He is also being seen by Infectious Disease as needed. CT 02/2018 did not show any abscess. Progress of Wound: Cuong is here for follow-up of his nonhealing surgical wound of his lower back. His wound is stable and shows mild improvement. The snap vac did not last past Saturday evening again. He did not think that it lost suction but he could not get the suction device to turn back to green. His used Aquacel extra and gauze and ABDs for the rest of the week. He has had 10 applications of Purapply with mild improvement. He saw a plastic surgeon at [facility] on 04/02/18 who is hopeful to close Cuong's surgical wound with a skin flap. He requested additional records of CT scans as well as information on radiation that was done previously. Cuong is still waiting to hear from the surgeon at [facility] and is getting discouraged because of lack of progress and communication from their office. He also has been having increased pain in his back and leg presumably from nerve impingement which he had epidural injections done this week and did not get any relief from these. Denies increased drainage, odor, fever or chills. - Physical Exam Vital Signs Temp Pulse Resp BP 95.1 F L 75 16 138/77 H 05/16/18 11:15 05/16/18 11:15 05/16/18 11:15 05/16/18 11:15 General: Alert, Oriented x3, Cooperative, No apparent distress HEENT: Atraumatic, Normocephalic Oral: Moist Mucosa Skin: Ulcer/ Wound Wound Measurements and Assessment - Nurse 1 - General Ulcer Measurement Start: 05/09/18 13:49 Freq: Status: Active Protocol: Activity Type Activity Date Activity User E-Sign Co-Sign Detail Recorded Client Recorded Date Recorded By Document 05/16/18 11:15 [facility] [id number] 05/16/18 11:27 [facility] 05/16/18 11:15 Wound Center Nurse 1 [Ulcer Assessment] #9 Lower Lumbar- Midline -Combined with other wound No -Current Size (cm) - Length 14.1 -Current Size (cm) - Width 4.3 -Current Size (cm) - Depth 0.9 -Total Square Cm 60.63 -Photo Taken No -Epithelialization None Present -Tunneling No -Undermining/Tunneling No -Circular Undermining No -Exudate Amt Medium -Exudate Type Serous -Wound Margin Thickened & Rolled Under -Granulation Amt Medium (34-66%) -Granulation Quality [place] -Slough/Fibrin Yes -Necrosis Amt Medium (34-66%) -Necrotic Tissue Type Adherent Slough -Texture (Uma-wound Skin Appearance) Assessed Scarring -Moisture (Uma-wound Skin Appearance Dry/Scaly ) -Color (Uma-wound Skin Appearance) Assessed -Temperature (Uma-wound Skin No Abnormality Appearance) (Pt Warm) -Tenderness on Palpation (Uma-wound No Skin Appearance) -Ulcer Cleansing Wound Cleanser -Foul Odor after Cleansing No -Anesthetic Used 4% Lidocaine Solution - Nurse 2 - General Ulcer CM Notes Start: 05/09/18 13:49 Freq: Status: Active Protocol: Activity Type Activity Date Activity User E-Sign Co-Sign Detail Recorded Client Recorded Date Recorded By Document 05/16/18 11:52 [id number] 05/16/18 12:08 05/16/18 11:52 Wound Center Nurse 2 [Procedure/Treatment] -Time 11:53 -Correct Patient Yes -Correct Side, Site, Position Yes -Correct Procedure Yes -Procedure Performed Yes -Type of Procedure Debridement -Clinical Debridement Subcutaneous -Post Debridement Size (cm) - Length 13.7 -Post Debridement Size (cm) - Width 4.0 -Post Debridement Size (cm) - Depth 0.4 -Total Square Cm 54.80 -Wound/Ulcer Outcome Not Healed -Ulcer Cleansing Not Cleansed -Foul Odor after Cleansing No -Bioengineered Tissue No -Bleeding Controlled with SURGIFOAM -Offloading No -Treatment Response Procedure Tolerated Well [See Physician Procedure note for Specifics] Pain Scale: 0-10 Numeric [Pain] -Is Patient Pain Free? No Psych/Mental Status: Normal Affect, Appropriate Debridement Note Post-Debridement Measurements/Treatment WC - Nurse 2 - General Ulcer CM Notes Start: 05/09/18 13:49 Freq: Status: Active Protocol: Activity Type Activity Date Activity User E-Sign Co-Sign Detail Recorded Client Recorded Date Recorded By Document 05/09/18 14:09 [id number] 05/09/18 14:25 Document 05/16/18 11:52 [id number] 05/16/18 12:08 05/09/18 05/16/18 14:09 11:52 Wound Center Nurse 2 #9 Lower Lumbar- Midline -Time 14:09 11:53 -Correct Patient Yes Yes -Correct Side, Site, Position Yes Yes -Correct Procedure Yes Yes -Procedure Performed Yes Yes -Type of Procedure Debridement Debridement -Clinical Debridement Subcutaneous Subcutaneous -Post Debridement Size (cm) - Length 13.4 13.7 -Post Debridement Size (cm) - Width 4 4.0 -Post Debridement Size (cm) - Depth 0.5 0.4 -Total Square Cm 53.6 54.80 -Wound/Ulcer Outcome Not Healed Not Healed -Ulcer Cleansing Rinsed/ Not Cleansed Irrigated with Saline -Foul Odor after Cleansing No No -Bioengineered Tissue No No -Bleeding Controlled with Pressure SURGIFOAM SURGIFOAM -Offloading No No -Treatment Response Procedure Procedure Tolerated Well Tolerated Well Pain Scale: 0-10 Numeric Is Patient Pain Free? Yes No Wound debrided: Lower lumbar midline Laterality: Not Applicable Type of Debridement: Excisional debridement Anesthesia Used: 4% Lidocaine Solution Depth: Down to and including healthy tissue, in the subcutaneous layer Percentage of wound debrided: 100 Instrument Used: 7mm curette Tissue Removed: yellow slough, devitalized tissue Severity: Fat Layer Exposed Amount of bleeding with debridement: Mild Bleeding Controlled with: Compression and gauze, Gel Foam Patient tolerated procedure well Assessment/Plan Active Problems (Last Reviewed 11/19/17 @ 16:27 by Micky Mauro MD) Nonhealing surgical wound (Chronic) Open wound of lower back (Chronic) Assessment: chronic surgical wound dehiscence lumbar with complex abscess and recent surgical debridement. malnutrition. other multiple comorbidities. edema bilateral lower extremities. Bleeding site from within wound controlled with combination of silver nitrate and Surgifoam. Bleeding appears to be controlled. venous insufficiency. immunocompromised status. Plan: Debridement done as documented above. Procedure was well-tolerated. Will continue to use Aquacel Extra and will use gauze and ABDs with changes once-twice daily as needed for drainage. CT lumbar spine was negative for abscess/cellulitis. Continue increased protein intake. F/U in [address] iWck.
--- NOTE | 2018-05-16 16:03 | PN.PCM_ITS ---
(1) Nonhealing surgical wound Status: Chronic Current Visit: Yes Qualifiers: Encounter type: subsequent encounter Code(s): T81.89XA - Other complications of procedures, not elsewhere classified, initial encounter (2) Open wound of lower back Status: Chronic Current Visit: Yes Code(s): S31.000A - Unspecified open wound of lower back and pelvis without penetration into retroperitoneum, initial encounter Type of Wound Date of Service: 05/16/18 Chief Complaint: Nonhealing surgical wound of lower back History of Wound: Mr. Marshall is a 72-yo who has been seen here at the wound center for a nonhealing surgical wound of his lower back s/p surgical debridement for an abscess s/p lumbar spine surgery. His original surgery on his lower back was approximately 18 months ago and he has had multiple complications since that time. He underwent surgical debridement on 03/04/[address] Davila at [facility] in [place] and was discharged with a wound vac for healing by secondary intention with possible muscle flap closure in the future. He followed up with his surgeon on 04/18/17 for further evaluation and recommendations and they plan to close the wound with a muscle flap but he continues to develop infections. He is also being seen by Infectious Disease as needed. CT 02/2018 did not show any abscess. Progress of Wound: Cuong is here for follow-up of his nonhealing surgical wound of his lower back. His wound is stable and shows mild improvement. The snap vac did not last past Saturday evening again. He did not think that it lost suction but he could not get the suction device to turn back to green. His used Aquacel extra and gauze and ABDs for the rest of the week. He has had 10 applications of Purapply with mild improvement. He saw a plastic surgeon at [facility] on 04/02/18 who is hopeful to close Cuong's surgical wound with a skin flap. He requested additional records of CT scans as well as information on radiation that was done previously. Cuong is still waiting to hear from the surgeon at [facility] and is getting discouraged because of lack of progress and communication from their office. He also has been having increased pain in his back and leg presumably from nerve impingement which he had epidural injections done this week and did not get any relief from these. Denies increased drainage, odor, fever or chills. - Physical Exam Vital Signs Temp Pulse Resp BP 95.1 F L 75 16 138/77 H 05/16/18 11:15 05/16/18 11:15 05/16/18 11:15 05/16/18 11:15 General: Alert, Oriented x3, Cooperative, No apparent distress HEENT: Atraumatic, Normocephalic Oral: Moist Mucosa Skin: Ulcer/ Wound Wound Measurements and Assessment - Nurse 1 - General Ulcer Measurement Start: 05/09/18 13:49 Freq: Status: Active Protocol: Activity Type Activity Date Activity User E-Sign Co-Sign Detail Recorded Client Recorded Date Recorded By Document 05/16/18 11:15 [facility] [id number] 05/16/18 11:27 [facility] 05/16/18 11:15 Wound Center Nurse 1 [Ulcer Assessment] #9 Lower Lumbar- Midline -Combined with other wound No -Current Size (cm) - Length 14.1 -Current Size (cm) - Width 4.3 -Current Size (cm) - Depth 0.9 -Total Square Cm 60.63 -Photo Taken No -Epithelialization None Present -Tunneling No -Undermining/Tunneling No -Circular Undermining No -Exudate Amt Medium -Exudate Type Serous -Wound Margin Thickened & Rolled Under -Granulation Amt Medium (34-66%) -Granulation Quality [place] -Slough/Fibrin Yes -Necrosis Amt Medium (34-66%) -Necrotic Tissue Type Adherent Slough -Texture (Uma-wound Skin Appearance) Assessed Scarring -Moisture (Uam-wound Skin Appearance Dry/Scaly ) -Color (Uma-wound Skin Appearance) Assessed -Temperature (Uma-wound Skin No Abnormality Appearance) (Pt Warm) -Tenderness on Palpation (Uma-wound No Skin Appearance) -Ulcer Cleansing Wound Cleanser -Foul Odor after Cleansing No -Anesthetic Used 4% Lidocaine Solution - Nurse 2 - General Ulcer CM Notes Start: 05/09/18 13:49 Freq: Status: Active Protocol: Activity Type Activity Date Activity User E-Sign Co-Sign Detail Recorded Client Recorded Date Recorded By Document 05/16/18 11:52 [id number] 05/16/18 12:08 05/16/18 11:52 Wound Center Nurse 2 [Procedure/Treatment] -Time 11:53 -Correct Patient Yes -Correct Side, Site, Position Yes -Correct Procedure Yes -Procedure Performed Yes -Type of Procedure Debridement -Clinical Debridement Subcutaneous -Post Debridement Size (cm) - Length 13.7 -Post Debridement Size (cm) - Width 4.0 -Post Debridement Size (cm) - Depth 0.4 -Total Square Cm 54.80 -Wound/Ulcer Outcome Not Healed -Ulcer Cleansing Not Cleansed -Foul Odor after Cleansing No -Bioengineered Tissue No -Bleeding Controlled with SURGIFOAM -Offloading No -Treatment Response Procedure Tolerated Well [See Physician Procedure note for Specifics] Pain Scale: 0-10 Numeric [Pain] -Is Patient Pain Free? No Psych/Mental Status: Normal Affect, Appropriate Debridement Note Post-Debridement Measurements/Treatment WC - Nurse 2 - General Ulcer CM Notes Start: 05/09/18 13:49 Freq: Status: Active Protocol: Activity Type Activity Date Activity User E-Sign Co-Sign Detail Recorded Client Recorded Date Recorded By Document 05/09/18 14:09 [id number] 05/09/18 14:25 Document 05/16/18 11:52 [id number] 05/16/18 12:08 05/09/18 05/16/18 14:09 11:52 Wound Center Nurse 2 #9 Lower Lumbar- Midline -Time 14:09 11:53 -Correct Patient Yes Yes -Correct Side, Site, Position Yes Yes -Correct Procedure Yes Yes -Procedure Performed Yes Yes -Type of Procedure Debridement Debridement -Clinical Debridement Subcutaneous Subcutaneous -Post Debridement Size (cm) - Length 13.4 13.7 -Post Debridement Size (cm) - Width 4 4.0 -Post Debridement Size (cm) - Depth 0.5 0.4 -Total Square Cm 53.6 54.80 -Wound/Ulcer Outcome Not Healed Not Healed -Ulcer Cleansing Rinsed/ Not Cleansed Irrigated with Saline -Foul Odor after Cleansing No No -Bioengineered Tissue No No -Bleeding Controlled with Pressure SURGIFOAM SURGIFOAM -Offloading No No -Treatment Response Procedure Procedure Tolerated Well Tolerated Well Pain Scale: 0-10 Numeric Is Patient Pain Free? Yes No Wound debrided: Lower lumbar midline Laterality: Not Applicable Type of Debridement: Excisional debridement Anesthesia Used: 4% Lidocaine Solution Depth: Down to and including healthy tissue, in the subcutaneous layer Percentage of wound debrided: 100 Instrument Used: 7mm curette Tissue Removed: yellow slough, devitalized tissue Severity: Fat Layer Exposed Amount of bleeding with debridement: Mild Bleeding Controlled with: Compression and gauze, Gel Foam Patient tolerated procedure well Assessment/Plan Active Problems (Last Reviewed 11/19/17 @ 16:27 by Micky Mauro MD) Nonhealing surgical wound (Chronic) Open wound of lower back (Chronic) Assessment: chronic surgical wound dehiscence lumbar with complex abscess and recent surgical debridement. malnutrition. other multiple comorbidities. e brittani bilateral lower extremities. Bleeding site from within wound controlled with combination of silver nitrate and Surgifoam. Bleeding appears to be controlled. venous insufficiency. immunocompromised status. Plan: Debridement done as documented above. Procedure was well-tolerated. Will continue to use Aquacel Extra and will use gauze and ABDs with changes once-tw ice daily as needed for drainage. CT lumbar spine was negative for abscess/cellulitis. Continue increased protein intake. F/U in [address] Wick.
[2018-05-30 12:34] VITALS: BP 158/62; PULSE 124; RESP 18; TEMP 35.7; BMI 27.8
--- NOTE | 2018-05-30 15:54 | PCM.WC.PN ---
(1) Nonhealing surgical wound Status: Chronic Current Visit: Yes Qualifiers: Encounter type: subsequent encounter Code(s): T81.89XA - Other complications of procedures, not elsewhere classified, initial encounter (2) Open wound of lower back Status: Chronic Current Visit: Yes Code(s): S31.000A - Unspecified open wound of lower back and pelvis without penetration into retroperitoneum, initial encounter Type of Wound Date of Service: 05/30/18 Chief Complaint: Nonhealing surgical wound of lower back History of Wound: Mr. Marshall is a 73-yo who has been seen here at the wound center for a nonhealing surgical wound of his lower back s/p surgical debridement for an abscess s/p lumbar spine surgery. His original surgery on his lower back was approximately 2016 and he has had multiple complications since that time. He underwent surgical debridement on 03/04/[address] Davila at [facility] in [place] and was discharged with a wound vac for healing by secondary intention with possible muscle flap closure in the future. He followed up with his surgeon on 04/18/17 for further evaluation and recommendations and they plan to close the wound with a muscle flap but he continues to develop infections. He is also being seen by Infectious Disease as needed. CT 02/2018 did not show any abscess. Progress of Wound: Cuong is here for follow-up of his nonhealing surgical wound of his lower back. His wound is stable and shows mild improvement. He has been tolerating Aquacel extra and gauze and ABDs. He has had 10 applications of Purapply with mild improvement. He saw a plastic surgeon at [facility] on 04/02/18 who is hopeful to close Cuong's surgical wound with a skin flap. He requested additional records of CT scans as well as information on radiation that was done previously. Cuong is still waiting to hear from the surgeon at [facility] and is getting discouraged because of lack of progress and communication from their office. He also has been having increased pain in his back and left leg presumably from nerve impingement which he had epidural injections done and did not get any relief from these. Denies increased drainage, odor, fever or chills. - Physical Exam Vital Signs Temp Pulse Resp BP 96.2 F L 124 H 18 158/62 H 05/30/18 12:34 05/30/18 12:34 05/30/18 12:34 05/30/18 12:34 General: Alert, Oriented x3, Cooperative, No apparent distress HEENT: Atraumatic, Normocephalic Oral: Moist Mucosa Extremities: Edema Skin: Ulcer/ Wound Wound Measurements and Assessment - Nurse 1 - General Ulcer Measurement Start: 05/09/18 13:49 Freq: Status: Active Protocol: Activity Type Activity Date Activity User E-Sign Co-Sign Detail Recorded Client Recorded Date Recorded By Document 05/30/18 12:34 [facility] [id number] 05/30/18 12:48 [facility] 05/30/18 12:34 Wound Center Nurse 1 [Ulcer Assessment] #9 Lower Lumbar- Midline -Combined with other wound No -Current Size (cm) - Length 14 -Current Size (cm) - Width 4.9 -Current Size (cm) - Depth 1.1 -Total Square Cm 68.6 -Photo Taken No -Epithelialization None Present -Tunneling No -Undermining/Tunneling No -Circular Undermining No -Exudate Amt Small -Exudate Type Serous -Wound Margin Thickened & Rolled Under -Granulation Amt Small (1-33%) -Granulation Quality [place] -Slough/Fibrin Yes -Necrosis Amt Large (67-100%) -Necrotic Tissue Type Adherent Slough -Texture (Uma-wound Skin Appearance) Scarring Rash -Moisture (Uma-wound Skin Appearance Dry/Scaly ) -Color (Uma-wound Skin Appearance) Assessed -Temperature (Uma-wound Skin No Abnormality Appearance) (Pt Warm) -Tenderness on Palpation (Uma-wound Yes Skin Appearance) -Ulcer Cleansing Wound Cleanser -Foul Odor after Cleansing No -Anesthetic Used 5% Lidocaine Gel - Nurse 2 - General Ulcer CM Notes Start: 05/09/18 13:49 Freq: Status: Active Protocol: Activity Type Activity Date Activity User E-Sign Co-Sign Detail Recorded Client Recorded Date Recorded By Document 05/30/18 12:58 [id number] 05/30/18 13:05 05/30/18 12:58 Wound Center Nurse 2 [Procedure/Treatment] -Time 12:58 -Correct Patient Yes -Correct Side, Site, Position Yes -Correct Procedure Yes -Procedure Performed Yes -Type of Procedure Debridement -Clinical Debridement Subcutaneous -Post Debridement Size (cm) - Length 13.8 -Post Debridement Size (cm) - Width 4.0 -Post Debridement Size (cm) - Depth 0.5 -Total Square Cm 55.20 -Wound/Ulcer Outcome Not Healed -Ulcer Cleansing Rinsed/ Irrigated with Saline -Foul Odor after Cleansing No -Bioengineered Tissue No -Bleeding Controlled with Gel Form -Offloading No -Treatment Response Procedure Tolerated Well [See Physician Procedure note for Specifics] Pain Scale: 0-10 Numeric [Pain] -Is Patient Pain Free? No Psych/Mental Status: Normal Affect, Appropriate Debridement Note Post-Debridement Measurements/Treatment WC - Nurse 2 - General Ulcer CM Notes Start: 05/09/18 13:49 Freq: Status: Active Protocol: Activity Type Activity Date Activity User E-Sign Co-Sign Detail Recorded Client Recorded Date Recorded By Document 05/09/18 14:09 [id number] 05/09/18 14:25 Document 05/16/18 11:52 [id number] 05/16/18 12:08 CS Document 05/30/18 12:58 [id number] 05/30/18 13:05 05/09/18 05/16/18 05/30/18 14:09 11:52 12:58 Wound Center Nurse 2 #9 Lower Lumbar- Midline -Time 14:09 11:53 12:58 -Correct Patient Yes Yes Yes -Correct Side, Site, Position Yes Yes Yes -Correct Procedure Yes Yes Yes -Procedure Performed Yes Yes Yes -Type of Procedure Debridement Debridement Debridement -Clinical Debridement Subcutaneous Subcutaneous Subcutaneous -Post Debridement Size (cm) - Length 13.4 13.7 13.8 -Post Debridement Size (cm) - Width 4 4.0 4.0 -Post Debridement Size (cm) - Depth 0.5 0.4 0.5 -Total Square Cm 53.6 54.80 55.20 -Wound/Ulcer Outcome Not Healed Not Healed Not Healed -Ulcer Cleansing Rinsed/ Not Cleansed Rinsed/ Irrigated with Irrigated with Saline Saline -Foul Odor after Cleansing No No No -Bioengineered Tissue No No No -Bleeding Controlled with Pressure SURGIFOAM Gel Form SURGIFOAM -Offloading No No No -Treatment Response Procedure Procedure Procedure Tolerated Well Tolerated Well Tolerated Well Pain Scale: 0-10 Numeric Is Patient Pain Free? Yes No No Wound debrided: lower lumbar midline Laterality: Not Applicable Type of Debridement: Excisional debridement Anesthesia Used: 4% Lidocaine Solution, 5% Lidocaine Gel Depth: Down to and including healthy tissue, in the subcutaneous layer Percentage of wound debrided: 100 Instrument Used: 5mm curette Tissue Removed: yellow slough, devitalized tissue Severity: Fat Layer Exposed Amount of bleeding with debridement: Mild Bleeding Controlled with: Compression and gauze Patient tolerated procedure well Assessment/Plan Active Problems (Last Reviewed 11/19/17 @ 16:27 by Micky Mauro MD) Nonhealing surgical wound (Chronic) Open wound of lower back (Chronic) Assessment: chronic surgical wound dehiscence lumbar with complex abscess and recent surgical debridement. malnutrition. other multiple comorbidities. edema bilateral lower extremities. Bleeding site from within wound controlled with combination of silver nitrate and Surgifoam. Bleeding appears to be controlled. venous insufficiency. immunocompromised status. Plan: Debridement done as documented above. Procedure was well-tolerated. Will continue to use Aquacel Extra and will use gauze and ABDs with changes once-twice daily as needed for drainage. CT lumbar spine was negative for abscess/cellulitis. Continue increased protein intake. F/U in [address] Wick.
--- NOTE | 2018-05-30 15:59 | PN.PCM_ITS ---
(1) Nonhealing surgical wound Status: Chronic Current Visit: Yes Qualifiers: Encounter type: subsequent encounter Code(s): T81.89XA - Other complications of procedures, not elsewhere classified, initial encounter (2) Open wound of lower back Status: Chronic Current Visit: Yes Code(s): S31.000A - Unspecified open wound of lower back and pelvis without penetration into retroperitoneum, initial encounter Type of Wound Date of Service: 05/30/18 Chief Complaint: Nonhealing surgical wound of lower back History of Wound: Mr. Marshall is a 73-yo who has been seen here at the wound center for a nonhealing surgical wound of his lower back s/p surgical debridement for an abscess s/p lumbar spine surgery. His original surgery on his lower back was approximately 2016 and he has had multiple complications since that time. He underwent surgical debridement on 03/04/[address] Davila at [facility] in [place] and was discharged with a wound vac for healing by secondary intention with possible muscle flap closure in the future. He followed up with his surgeon on 04/18/17 for further evaluation and recommendations and they plan to close the wound with a muscle flap but he continues to develop infections. He is also being seen by Infectious Disease as needed. CT 02/2018 did not show any abscess. Progress of Wound: Cuong is here for follow-up of his nonhealing surgical wound of his lower back. His wound is stable and shows mild improvement. He has been tolerating Aquacel extra and gauze and ABDs. He has had 10 applications of Purapply with mild improvement. He saw a plastic surgeon at [facility] on 04/02/18 who is hopeful to close Cuong's surgical wound with a skin flap. He requested additional records of CT scans as well as information on radiation that was done previously. Cuong is still waiting to hear from the surgeon at [facility] and is getting discouraged because of lack of progress and communication from their office. He also has been having increased pain in his back and left leg presumably from nerve impingement which he had epidural injections done and did not get any relief from these. Denies increased drainage, odor, fever or chills. - Physical Exam Vital Signs Temp Pulse Resp BP 96.2 F L 124 H 18 158/62 H 05/30/18 12:34 05/30/18 12:34 05/30/18 12:34 05/30/18 12:34 General: Alert, Oriented x3, Cooperative, No apparent distress HEENT: Atraumatic, Normocephalic Oral: Moist Mucosa Extremities: Edema Skin: Ulcer/ Wound Wound Measurements and Assessment - Nurse 1 - General Ulcer Measurement Start: 05/09/18 13:49 Freq: Status: Active Protocol: Activity Type Activity Date Activity User E-Sign Co-Sign Detail Recorded Client Recorded Date Recorded By Document 05/30/18 12:34 [facility] [id number] 05/30/18 12:48 [facility] 05/30/18 12:34 Wound Center Nurse 1 [Ulcer Assessment] #9 Lower Lumbar- Midline -Combined with other wound No -Current Size (cm) - Length 14 -Current Size (cm) - Width 4.9 -Current Size (cm) - Depth 1.1 -Total Square Cm 68.6 -Photo Taken No -Epithelialization None Present -Tunneling No -Undermining/Tunneling No -Circular Undermining No -Exudate Amt Small -Exudate Type Serous -Wound Margin Thickened & Rolled Under -Granulation Amt Small (1-33%) -Granulation Quality [place] -Slough/Fibrin Yes -Necrosis Amt Large (67-100%) -Necrotic Tissue Type Adherent Slough -Texture (Uma-wound Skin Appearance) Scarring Rash -Moisture (Uma-wound Skin Appearance Dry/Scaly ) -Color (Uma-wound Skin Appearance) Assessed -Temperature (Uma-wound Skin No Abnormality Appearance) (Pt Warm) -Tenderness on Palpation (Uma-wound Yes Skin Appearance) -Ulcer Cleansing Wound Cleanser -Foul Odor after Cleansing No -Anesthetic Used 5% Lidocaine Gel - Nurse 2 - General Ulcer CM Notes Start: 05/09/18 13:49 Freq: Status: Active Protocol: Activity Type Activity Date Activity User E-Sign Co-Sign Detail Recorded Client Recorded Date Recorded By Document 05/30/18 12:58 [id number] 05/30/18 13:05 05/30/18 12:58 Wound Center Nurse 2 [Procedure/Treatment] -Time 12:58 -Correct Patient Yes -Correct Side, Site, Position Yes -Correct Procedure Yes -Procedure Performed Yes -Type of Procedure Debridement -Clinical Debridement Subcutaneous -Post Debridement Size (cm) - Length 13.8 -Post Debridement Size (cm) - Width 4.0 -Post Debridement Size (cm) - Depth 0.5 -Total Square Cm 55.20 -Wound/Ulcer Outcome Not Healed -Ulcer Cleansing Rinsed/ Irrigated with Saline -Foul Odor after Cleansing No -Bioengineered Tissue No -Bleeding Controlled with Gel Form -Offloading No -Treatment Response Procedure Tolerated Well [See Physician Procedure note for Specifics] Pain Scale: 0-10 Numeric [Pain] -Is Patient Pain Free? No Psych/Mental Status: Normal Affect, Appropriate Debridement Note Post-Debridement Measurements/Treatment WC - Nurse 2 - General Ulcer CM Notes Start: 05/09/18 13:49 Freq: Status: Active Protocol: Activity Type Activity Date Activity User E-Sign Co-Sign Detail Recorded Client Recorded Date Recorded By Document 05/09/18 14:09 [id number] 05/09/18 14:25 Document 05/16/18 11:52 [id number] 05/16/18 12:08 CS Document 05/30/18 12:58 [id number] 05/30/18 13:05 05/09/18 05/16/18 05/30/18 14:09 11:52 12:58 Wound Center Nurse 2 #9 Lower Lumbar- Midline -Time 14:09 11:53 12:58 -Correct Patient Yes Yes Yes -Correct Side, Site, Position Yes Yes Yes -Correct Procedure Yes Yes Yes -Procedure Performed Yes Yes Yes -Type of Procedure Debridement Debridement Debridement -Clinical Debridement Subcutaneous Subcutaneous Subcutaneous -Post Debridement Size (cm) - Length 13.4 13.7 13.8 -Post Debridement Size (cm) - Width 4 4.0 4.0 -Post Debridement Size (cm) - Depth 0.5 0.4 0.5 -Total Square Cm 53.6 54.80 55.20 -Wound/Ulcer Outcome Not Healed Not Healed Not Healed -Ulcer Cleansing Rinsed/ Not Cleansed Rinsed/ Irrigated with Irrigated with Saline Saline -Foul Odor after Cleansing No No No -Bioengineered Tissue No No No -Bleeding Controlled with Pressure SURGIFOAM Gel Form SURGIFOAM -Offloading No No No -Treatment Response Procedure Procedure Procedure Tolerated Well Tolerated Well Tolerated Well Pain Scale: 0-10 Numeric Is Patient Pain Free? Yes No No Wound debrided: lower lumbar midline Laterality: Not Applicable Type of Debridement: Excisional debridement Anesthesia Used: 4% Lidocaine Solution, 5% Lidocaine Gel Depth: Down to and including healthy tissue, in the subcutaneous layer Percentage of wound debrided: 100 Instrument Used: 5mm curette Tissue Removed: yellow slough, devitalized tissue Severity: Fat Layer Exposed Amount of bleeding with debridement: Mild Bleeding Controlled with: Compression and gauze Patient tolerated procedure well Assessment/Plan Active Problems (Last Reviewed 11/19/17 @ 16:27 by Micky Mauro MD) Nonhealing surgical wound (Chronic) Open wound of lower back (Chronic) Assessment: chronic surgical wound dehiscence lumbar with complex abscess and recent surgical debridement. malnutrition. other multiple comorbidities. edema bilateral lower extremities. Bleeding site from within wound controlled with combination of silver nitrate and Surgifoam. Bleeding appears to be controlled. venous insufficiency. immunocompromised status. Plan: Debridement done as documented above. Procedure was well-tolerated. Will continue to use Aquacel Extra and will use gauze and ABDs with changes once- twice daily as needed for drainage. CT lumbar spine was negative for abscess/cellulitis. Continue increased protein intake. F/U in [address] Wick.
== END 2018-06-05 23:59 ==
LOC: WC 13:00
PROVIDERS: Family Provider Family Medicine; PCP Family Medicine; Referring Provider Family Medicine; Visit Provider Family Medicine
DX: T81.30XA Disruption of wound, unspecified, initial encounter (principal); L03.312 Cellulitis of back [any part except buttock and flank]; Y83.8 Other surgical procedures as the cause of abnormal reaction of the patient, or of later complication, without mention of misadventure at the time of the procedure; I87.2 Venous insufficiency (chronic) (peripheral); B99.8 Other infectious disease; N18.3 Chronic kidney disease, stage 3 (moderate)
CPT/HCPCS: 11042; 11045; 97608

== ENCOUNTER → 2018-06-02 10:56 | Outpatient (CLI) | payer MEDICARE, OTHER, SELFPAY ==
[2015-10-31 10:00] VITALS: BMI 34.9
[2018-05-19 11:55] VITALS: BMI 27.8
[2018-05-30 12:34] VITALS: BMI 27.8
[2018-06-02 11:07] VITALS: BP 123/76; PULSE 143; RESP 16; TEMP 37.2; O2SAT 92; BMI 27.8
[2018-06-02 11:54] LABS: Hematocrit 28.9 % (40-54); Hemoglobin 8.9 g/dl (13.0-16.5)
[2018-06-02 20:08] LABS: Xtra Tube EP Lab EXTRA TUBE
== END ==
PROVIDERS: Family Provider Family Medicine; PCP Family Medicine; Referring Provider Internal Medicine Nephrology; Visit Provider Internal Medicine Nephrology
DX: N18.3 Chronic kidney disease, stage 3 (moderate) (principal); D63.1 Anemia in chronic kidney disease
CPT/HCPCS: 36415; 85014; 85018; 96372; J0885

== ENCOUNTER 2018-06-02 15:30 | Inpatient (IN) | payer MEDICARE, OTHER, SELFPAY ==
[2015-10-31 10:00] VITALS: BMI 34.9
[2018-06-02] VITALS (14 sets, daily range): BP systolic 99–138; BP diastolic 51–85; PULSE 115–141; RESP 15–24; TEMP 36.6–37; O2SAT 87–100; BMI 27.8; BMI 28.5; BMI 31.1; BMI 31.2
--- NOTE | 2018-06-02 15:49 | EKG12_ITS ---
Test Reason : PALPS Blood Pressure : / mmHG Vent. Rate : 139 BPM Atrial Rate : 139 BPM P-R Int : 168 ms QRS Dur : 134 ms QT Int : 300 ms P-R-T Axes : 000 -67 064 degrees QTc Int : 456 ms Sinus tachycardia Right bundle branch block Left anterior fascicular block Bifascicular block Left ventricular hypertrophy Abnormal ECG Confirmed by SAMMIE HAYES, NICKY ([id number]), assignment desk editor MENDEZ OSPINA ([id number]) on 06/05/2018 8:13:39 AM Referred By: TAVARES Confirmed By:NICKY COCHRAN MD
--- NOTE | 2018-06-02 15:49 | CT_ITS ---
STUDY: CTA CHEST REASON FOR EXAM: Male, 73 years old. Shortness of breath. History of lymphoma with chemotherapy, bone and liver metastases. RADIATION DOSAGE (If Supplied By Facility): CTDIvol = ( 18.60 ) mGy, DLP = ( 579.24 ) mGycm TECHNIQUE: The examination was performed with the intravenous administration of 75ml ml of Isovue 370 contrast material. Post-processing of the angiographic images was performed, with multiplanar reformation and 3D reconstruction. Individualized dose optimization techniques were used for this CT. COMPARISON: 04 July 2015 FINDINGS: Normal enhancement of the main pulmonary artery and right and left pulmonary arteries. Normal enhancement of the bilateral peripheral pulmonary arteries. There is no demonstrated pulmonary embolism. There is atherosclerotic calcification of the aortic arch with tortuosity. There is no demonstrated aortic dissection. There are calcifications of the coronary arteries. Normal mediastinum. Normal hilar regions. Normal visualized trachea and bronchi. The lungs are well expanded. Normal pulmonary parenchyma. Normal pleura. Normal chest wall structures. There are degenerative changes of thoracic spine. Ascites surrounds the liver margin with limited evaluation of the liver parenchyma. Right hepatic lobe cysts hypodense structure consistent with cyst is present along the margin anteriorly measuring 2.[address]/CTA Chest W/WO Contrast IMPRESSION: 1. No evidence of pulmonary embolism or aortic dissection. No evidence of acute pulmonary process. 2. Right peripheral abdominal ascites surrounding the liver margin. Electronically Signed: Ricky Moran DO at 20:25 EST , Service support ,
--- NOTE | 2018-06-02 15:51 | VDLE_ITS ---
Reason For Study: LEG PAIN RIGHT GSV is normal. CFV is compressible, spontaneous, competent and demonstrates pulsatile venous flow. FV is compressible, spontaneous, competent and demonstrates pulsatile venous flow. POP V is compressible, spontaneous, competent and demonstrates pulsatile venous flow. T/P Trunk is compressible. PTV is compressible. RT PerV is compressible. Procedure Exam performed portable in ED. A preliminary report was called and/or faxed to ED nurse. Interpretation Summary 1. No DVT or SV in right leg. Ordering Physician: Tate Hair Referring Physician: Bernardo Lawson Performed By: Jacquelyn De Jesus RVT
--- NOTE | 2018-06-02 15:53 | ED.VISSUMM ---
- ER Visit Summary Date of Service: 06/02/18 Chief Complaint: Increased heart rate, leg swelling History of Present Illness: The patient is a 73 M who complains of increased heart rate as well as leg swelling. He does have a history of paroxysmal atrial fibrillation. He states that he noted today that his heart rate was increasing. He denies any chest pain with this but is mildly short of breath. He has noticed right leg swelling and right calf pain over the past couple of days. He does have a history of pulmonary embolism. He is on a half dose of Eliquis due to GI bleeds. He has been more stationary recently due to back pain from spinal stenosis. Physical Examination: Vital signs reviewed. HEENT exam unremarkable. Heart is tachycardic and regular without murmurs. Lungs are clear. Abdomen soft and nontender. Extremities reveal 3+ edema on the right leg and 1+ edema on the left leg. There is right calf tenderness to palpation. Skin exam reveals no changes. He has diffuse overall weakness. Test Results: EKG was A. fib with rate of 140 with a 2:1. After Cardizem his rate of 106 and in A. fib. Hemoglobin 8.7. Sodium 135. Troponin 0 0.054. BNP 833. CTA of the chest reveals no PE. There is some ascites noted. Duplex ultrasound reveals no DVT Emergency Department Course and Treatment: The patient was given Cardizem which did reveal his underlying rhythm of A. fib. His initial EKG was regular but I felt it was more of a 2-1 block. He does have a little bit of ascites on his CT of the chest. He does have peripheral edema. I feel he should be admitted for the A. fib as well as for diuresis. I spoke with the hospitalist for admission. Treatment Plan: [] Disposition: Admit Impression: A. fib with RVR This note was generated with [employer] dictation software. It may contain incorrect words, spelling, and punctuation that were not noted in review of the chart prior to signing ED Disposition - Plan for ED Patient: Chief Complaint: Palpitations Referrals: Bernardo Lawson DO [Primary Care Provider] -
[2018-06-02] MEDS: dilTIAZem 25 MG/5 ML Vial 20 MG IV BOLUS (16:46)
[2018-06-02] MEDS: Aspirin 81 MG TAB.CHEW 324 MG PO (16:46)
--- NOTE | 2018-06-02 16:51 | EKG12_ITS ---
Test Reason : REPEAT Blood Pressure : / mmHG Vent. Rate : 106 BPM Atrial Rate : 153 BPM P-R Int : 000 ms QRS Dur : 134 ms QT Int : 414 ms P-R-T Axes : 000 -56 041 degrees QTc Int : 549 ms Atrial fibrillation with rapid ventricular response Right bundle branch block Left anterior fascicular block Bifascicular block Minimal voltage criteria for LVH, may be normal variant Abnormal ECG Confirmed by SAMMIE HAYES, NICKY ([id number]), non linear editor MENDEZ OSPINA ([id number]) on 06/05/2018 8:14:57 AM Referred By: TAVARES Confirmed By:NICKY COCHRAN MD
[2018-06-02 17:10] LABS: Anion Gap 11 (5-15); BUN 36 mg/dL (7-18); BUN/Creat Ratio 24.3 RATIO (10-20); Calcium,Total 8.3 mg/dL (8.5-10.1); Chloride 97 mmol/L (98-107); Creatinine, Serum 1.48 mg/dL (0.70-1.30); EST Glomerular Filtration Rate 49 mL/min (>60); Est Glom Filt Rate - Afr Amer 60 mL/min (>60); Estimated Creatinine Clearance 42.36 ml/min; Glucose 100 mg/dL (74-106); Potassium 3.9 mmol/L (3.5-5.1); Sodium Level 135 mmol/L (136-145)
[2018-06-02 17:21] LABS: Absolute Lymphocyte Count 0.69 X10^3/ul (0.83-4.51); Absolute Neutrophil Count 3.1 X10^3/uL (2.0-7.7); Basophil# 0.04 X10^3/uL; Basophil% 0.8 % (0-1); Eosinophil# 0.05 X10^3/uL; Hematocrit 28.1 % (40-54); Hemoglobin 8.7 g/dl (13.0-16.5); Lymphocyte # 0.69 X10^3/ul (4.0); Lymphocyte % 14.1 % (19-41); Mean Corpuscular Hgb 35.2 pg (27.0-32.0); Mean Corpuscular Volume 113.8 fL (80-94); Mean Platelet Vol. 9.4 fl (6.2-12.0); Monocyte% 20.4 % (0-10); Neutrophil # 3.12 X10^3/uL (2.7-7.7); Neutrophil % 63.5 % (47-70); Platelet Count 363 K/mm3 (150-450); RBC Distribution Width CV 17.7 % (11.6-14.6); RBC Distribution Width SD 73.7 fl (35.1-43.9); Red Blood Count 2.47 M/mm3 (4.6-6.2); White Blood Count 4.9 K/mm3 (4.4-11.0)
[2018-06-02 17:25] LABS: Differential Indicated SCAN CRITERIA MET; POSITIVE COUNT NO; POSITIVE DIFFERENTIAL NO; POSITIVE MORPHOLOGY YES
[2018-06-02 17:49] LABS: Anisocytosis 1+; Hypochromasia 1+; Platelet Estimate ADEQUATE (ADEQ); Polychromasia RARE
[2018-06-02 17:50] LABS: Macrocytosis 2+
[2018-06-02 17:57] LABS: BNP,B-Type NATRIURETIC PEPTIDE 833.9 pg/mL (0-100)
--- NOTE | 2018-06-02 20:56 | PCM.HP.STD ---
Problem List (1) Atrial fibrillation with RVR Status: Acute (2) Chronic combined systolic and diastolic CHF (congestive heart failure) Status: Acute (3) History of non-Hodgkin's lymphoma Status: Chronic (4) Ascending aorta dilatation Status: Chronic (5) PSVT (paroxysmal supraventricular tachycardia) Status: Chronic (6) Cardiomyopathy, dilated Status: Chronic (7) Paroxysmal atrial fibrillation Status: Chronic (8) Chronic kidney disease Status: Chronic Qualifiers: (9) Hyperlipidemia Status: Chronic Qualifiers: (10) Hypertension Status: Chronic Qualifiers: (11) Peripheral vascular disease Status: Chronic History of Present Illness Date of Admission: 06/02/18 Chief Complaint: rapid heart rate, leg swelling The patient is a 73 year old male patient with a past medical history of paroxysmal atrial fibrillation, dilated cardiomyopathy with congestive heart failure and chronic kidney disease presents to the ER with rapid heart rate. He states his back pain has caused him to be more sedentary than usual for the past two weeks. Three days ago he notice a marked increase in lower extremity swelling. He was seen by his PCP and sent to the ER due to atrial fibrillation with a ventricular rate in the 140s. He is on low dose Eliquis already and has had gastrointestinal bleeding previously. The patient has responded to Cardizem bolus in the ER. Initial Troponin is 0.054 and BNTP is 883. He will be admitted for Atrial fibrillation with RVR and CHF exacerbation. He is not short of breath at rest. Past Medical History Past Medical History (Chronic Problems): Chronic Problems (Last Reviewed 11/19/17 @ 16:27 by Micky Mauro MD) Secondary pulmonary arterial hypertension (Chronic) Nonhealing surgical wound (Chronic) Open wound of lower back (Chronic) Osteomyelitis of lumbar spine (Chronic) 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) History of non-Hodgkin's lymphoma (Chronic) Ascending aorta dilatation (Chronic) Aortic root dilatation (Chronic) PSVT (paroxysmal supraventricular tachycardia) (Chronic) Cardiomyopathy, dilated (Chronic) Paroxysmal atrial fibrillation (Chronic) Pleural effusion (Chronic) Pericardial effusion (Chronic) Pulmonary embolism (Chronic) Chronic kidney disease (Chronic) Non-Hodgkin lymphoma (Chronic) Hyperlipidemia (Chronic) Hypertension (Chronic) Peripheral vascular disease (Chronic) Medical History: Medical History (Last Reviewed 11/19/17 @ 16:27 by Micky Mauro MD) Secondary pulmonary arterial hypertension (Chronic) I27.21 Chronic combined systolic and diastolic CHF (congestive heart failure) (Chronic) I50.42 Ascending aorta dilatation (Chronic) I77.810 Aortic root dilatation (Chronic) I77.810 PSVT (paroxysmal supraventricular tachycardia) (Chronic) I47.1 Cardiomyopathy, dilated (Chronic) I42.0 Paroxysmal atrial fibrillation (Chronic) I48.0 Pleural effusion (Chronic) J90 Pericardial effusion (Chronic) I31.3 Pulmonary embolism (Chronic) I26.99 Chronic kidney disease (Chronic) N18.9 Non-Hodgkin lymphoma (Chronic) C85.90 Hyperlipidemia (Chronic) E78.5 Hypertension (Chronic) I10 Peripheral vascular disease (Chronic) I73.9 Ascites R18.8 Edema of lower extremity R60.0 Gout M10.9 Hepatic cirrhosis K74.60 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 for treatment of lymphoma Open wound of lower back S31.000A with muscle and bone exposed s/p surgical debridement of abscess s/p lumbar spine surgery Chronic ulcer of right leg with fat layer exposed L97.912 History of DVT (deep vein thrombosis) Z86.718 History of diverticulitis Z87.19 Lumbar disc disease M51.9 Lymphedema I89.0 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 of necrosis L98.496 nonhealing ulcer lumbar back area MARY JANE (obstructive sleep apnea) G47.33 Osteomyelitis M86.9 Allergies chlorthalidone Allergy (Verified 05/05/18 11:13) Unknown ramipril [From Altace] Allergy (Verified 05/05/18 11:13) Unknown sulfamethoxazole [From Bactrim] Allergy (Verified 05/05/18 11:13) Other trazodone Allergy (Verified 05/05/18 11:13) Unknown trimethoprim [From Bactrim] Allergy (Verified 05/05/18 11:13) Other prednisone Adverse Reaction (Verified 05/05/18 11:13) Swelling Home Medications: Ambulatory Orders Medication Instructions Recorded Folic Acid 1 mg PO DAILY@0800 02/05/16 Magnesium Oxide [Magnesium] 400 mg PO DAILY@0800 02/05/16 Gabapentin [Neurontin] 100 mg PO DAILY 07/04/17 Vit C/E/Zn/Coppr/Lutein/Zeaxan 1 ea PO BID 07/04/17 [Preservision Areds 2 Softgel] apixaban 5 mg tablet 2.5 mg PO BID tab 08/27/17 ferrous fumarate 325 mg (106 mg 325 mg PO BID tab 08/27/17 iron) tablet atorvastatin 20 mg tablet 20 mg PO QHS #90 tab 09/04/17 Acetaminophen [Tylenol Arthritis] 1,300 mg PO PRN PRN 06/02/18 Furosemide 40 mg PO DAILY 06/02/18 Gabapentin [Neurontin] 200 mg PO DAILY 06/02/18 Hydromorphone HCl 4 mg PO Q4H PRN PRN 06/02/18 Melatonin 10 mg PO QHS 06/02/18 Metoprolol Succinate [Toprol Xl] 12.5 mg PO BID 06/02/18 fentaNYL patch [Duragesic Patch] 100 mcg TRANSDERM. Q72H 06/02/18 Surgical History: Surgical History (Last Reviewed 11/19/17 @ 16:27 by Micky Mauro MD) History of laminectomy Z98.890 History of splenectomy Z90.81 Surgical History: colectomy - Partial., - - Splenectomy, Ileostomy reversal, L4-5 discectomy. Wound debridement 03/04/2017, 05/14/2017 at [facility]> Smoking Status: Former smoker - *Family History Maternal Family History: Family History (Last Reviewed 11/19/17 @ 16:27 by Micky Mauro MD) Father Diabetes Heart disease Mother Heart disease History Items: Heart Disease Paternal Family History: Family History (Last Reviewed 11/19/17 @ 16:27 by Micky Mauro MD) Father Diabetes Heart disease Mother Heart disease History Items: Diabetes Review of Systems Constitutional: Denies: Chills, Fever, Weight Change HEENT: Denies: Head Aches, Sinus Congestion, Sinus Drainage Cardiovascular: Reports: Edema, Palpitations. Denies: Chest Pain Respiratory: Denies: Cough, Shortness of breath at rest, Sputum production Gastrointestinal: Denies: Abdominal Pain, Nausea, Vomiting Genitourinary: Denies: Dysuria Musculoskeletal: Denies: Joint Pain, Joint Tenderness Skin: Denies: Rash, Wounds Neurological: Denies: Numbness, Tingling, Focal weakness Psychiatric: Denies: Anxiety, Depression, Homicidal Ideations, Suicidal Ideations Hematologic/ Lymphatic: Denies: Easy Bruising, Easy Bleeding VTE Information - Inpt Only VTE Present on Admission: No VTE Mechan Device Prophylaxis: None VTE Pharm Prophylaxis ordered?: Yes Patient Problems: Active and Suspected Problems (Last Reviewed 11/19/17 @ 16:27 by Micky Mauro MD) Atrial fibrillation with RVR (Acute) - Physical Exam General: Alert, Oriented x3, Cooperative HEENT: Atraumatic, Normocephalic Neck: Supple, Negative Carotid Bruits Lungs: Normal air movement, No wheeze, No rales, Rhonchi Cardiovascular: Normal S1, Normal S2, No murmurs, Irregular Rate, Tachycardic Abdomen: Bowel Sounds Present, Soft, Non Tender Extremities: Capillary Refill Less than 3 Seconds, Edema - 4+ edema Skin: No rashes, Ulcer/ Wound - heal right lower ext 1cm diameter Musculoskeletal: No Tenderness to Palpation of Joints or Extremities Neurological: Neuro grossly intact Psych/Mental Status: Normal Affect, Appropriate Vital Signs Temp Pulse Resp BP Pulse Ox 98.6 F 120 H 18 99/56 L 97 06/02/18 15:34 06/02/18 20:08 06/02/18 20:08 06/02/18 20:08 06/02/18 20:08 Oxygen Flow Rate (L/min) 2 Oxygen Delivery Method Room Air Weight: 187 lb 6.287 oz Body Mass Index (BMI) 28.5 Laboratory Tests Past 24 Hrs 06/02/18 06/02/18 06/02/18 16:25 16:25 16:25 WBC 4.9 RBC 2.47 L Hgb 8.7 L Hct 28.1 L MCV 113.8 H MCH 35.2 H MCHC 31.0 L RDW 17.7 H RDW Differential 73.7 H Plt Count 363 MPV 9.4 Immature Gran % (Auto) 0.200 Neut % (Auto) 63.5 Lymph % (Auto) 14.1 L [place] % (Auto) 20.4 H Eos % (Auto) 1.0 Baso % (Auto) 0.8 Absolute Neuts (auto) 3.1 Absolute Lymphs (auto) 0.69 L Total Counted Not Reportable Platelet Estimate ADEQUATE Polychromasia RARE Hypochromasia 1+ Anisocytosis 1+ Macrocytosis 2+ Sodium 135 L Potassium 3.9 Chloride 97 L Carbon Dioxide 27.0 Anion Gap 11 BUN 36 H Creatinine 1.48 H Estim Creat Clear Calc 42.36 Est GFR (MDRD) Af Amer 60 Est GFR (MDRD) Non-Af 49 L BUN/Creatinine Ratio 24.3 H Glucose 100 Calcium 8.3 L Troponin I 0.054 H B-Natriuretic Peptide 833.9 H Assessment/Plan All Active Problems (Last Reviewed 11/19/17 @ 16:27 by Micky Mauro MD) Atrial fibrillation with RVR (Acute) Chronic combined systolic and diastolic CHF (congestive heart failure) (Acute) Cellulitis (Resolved) Chronic Problems (Last Reviewed 11/19/17 @ 16:27 by Micky Mauro MD) Secondary pulmonary arterial hypertension (Chronic) Nonhealing surgical wound (Chronic) Open wound of lower back (Chronic) Osteomyelitis of lumbar spine (Chronic) 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) History of non-Hodgkin's lymphoma (Chronic) Ascending aorta dilatation (Chronic) Aortic root dilatation (Chronic) PSVT (paroxysmal supraventricular tachycardia) (Chronic) Cardiomyopathy, dilated (Chronic) Paroxysmal atrial fibrillation (Chronic) Pleural effusion (Chronic) Pericardial effusion (Chronic) Pulmonary embolism (Chronic) Chronic kidney disease (Chronic) Non-Hodgkin lymphoma (Chronic) Hyperlipidemia (Chronic) Hypertension (Chronic) Peripheral vascular disease (Chronic) Plan 1. Atrial Fibrillation with RVR- consult Dr. Mauro- echo cardiogram, cycle cardiac markers. Oxygen per protocol, consider Cardizem drip if second Cardizem bolus is unsuccessful for rate control. Continue Eliquis. 2. CHF- ECHO in am, additional 40mg IV lasix , BMP in am 3. Back Pain - continue home medication 4. DVT prophylaxis - on Eliquis Code Visit Inpatient E&M: 80378 Init Hosp L3
[2018-06-02] MEDS: dilTIAZem 25 MG/5 ML Vial 10 MG IV BOLUS (20:57)
--- NOTE | 2018-06-02 21:00 | CM.ED ---
Social Work Assessment Referral Date: 06/02/18 Date of Assessment: 06/02/18 Informant: SELF-REFERRAL Reason for Consult: INITIAL ASSESSMENT Information obtained from: PATIENT AND , KAMILAH ([phone]) Living Arrangements: PATIENT LIVES HOME WITH IN A 2 STORY HOME WITH 1ST FLOOR SET UP. Supports: PATIENT HAS GOOD SUPPORT FROM FAMILY. Social/Family Stressors: PATIENT STATES HAS HAD LE PAIN AND SWELLING AND HAS NOT BEEN ABLE TO AMBULATE VERY WELL SINCE BEGINNING OF THIS MONTH. Mental Health History: PATIENT DENIES ANY HX OF MENTAL HEALTH. Substance Abuse History: PATIENT DENIES ANY HX OF SUBSTANCE ABUSE. Interventions: INITIAL ASSESSMENT PATIENT IS BEING ADMITTED. Assessment: PATIENT IS A 73 Y/O MALE WHO PRESENTS TO THE ED WITH RAPID HEART RATE AND LE SWELLING. PT WITH HX OF CHF, PAROXYSMAL AFIB, AND CHRONIC KIDNEY DISEASE. PATIENT REPORTS PCP IS DR. LINDQUIST. PATIENT STATES IS COMPLIANT WITH ALL MEDICATIONS. PATIENT DENIES ANY HX OF MENTAL HEALTH OR SUBSTANCE ABUSE. PATIENT AND REPORT RESIDE IN A 2 STORY HOME WITH 1ST FLOOR SET UP. DME IN THE HOME CONSISTS OF WALKER, CANE, AND GRAB BARS. PATIENT STATES IS NORMALLY INDEPENDENT WITH ALL ADLS AND REPORTS HAS NEEDED TO USE ASSISTIVE DEVICE MORE THAN USUAL D/T PAIN AND SWELLING IN LE. PATIENT STATES HAS INFORMATION ON ADVANCED DIRECTIVES. PATIENT AND DENY ANY NEEDS AT THIS TIME. PLAN: ADMIT ALEXANDRIA CELAYA MSW, [employer] ROOM CUSTODIAN.
[2018-06-02] MEDS: oxyCODONE 5 MG Tablet PO (21:51)
[2018-06-02] MEDS: APIXABAN 2.5 MG TABLET PO (23:31)
[2018-06-02] MEDS: Ferrous Gluconate 324 MG Tablet PO (23:31)
[2018-06-02] MEDS: Atorvastatin Calcium 20 MG Tablet PO (23:32)
[2018-06-02] MEDS: MELATONIN 10 MG TABLET PO (23:32)
[2018-06-02] MEDS: Metoprolol(XL)Succ 25 MG Tablet 12.5 MG PO (23:32)
[2018-06-02] MEDS: 0.9% NaCl Peripheral Flush Adult/Peds IV (23:33)
[2018-06-02] MEDS: Furosemide 40 MG/4 ML Vial IV (23:43)
[2018-06-03] VITALS (22 sets, daily range): BP systolic 95–152; BP diastolic 49–97; PULSE 81–138; RESP 12–23; TEMP 36.4–37.1; O2SAT 93–99
[2018-06-03] MEDS: HYDROmorphone 2 MG TABLET 4 MG PO ×5 (02:34→22:12)
--- NOTE | 2018-06-03 05:55 | ECHOCS_ITS ---
Version 2 Reason For Study: CHF Procedure This was a 2D Doppler, Color Flow transthoracic echocardiogram. The study was technically difficult. Contrast injection was performed. Exam performed portable in patient room. Left Ventricle Normal LV size. Severe segmental systolic dysfunction (see wall motion). The estimated ejection fraction is 25 %. Anterio-Basal: Hypokinetic. Basal inferoseptal: Hypokinetic. Basal anteroseptal: Hypokinetic. Mid-Anterior : Hypokinetic. Mid-Lateral : Hypokinetic. Mid-Posterior: Hypokinetic. Mid- Inferior: Hypokinetic. Mid-inferoseptal : Hypokinetic. Mid-anteroseptal : Hypokinetic. [place] : Hypokinetic. Right Ventricle Moderately dilated right ventricle. Moderate global right ventricular systolic dysfunction. Atria The left atrium is moderately enlarged. The right atrium is moderately enlarged. No doppler evidence for ASD. Bubble contrast study negative for right to left interatrial shunt. Mitral Valve There is mild mitral annular calcification. Extension of the mitral annular calcification onto the posterior mitral valve leaflet. Mild diffuse mitral valve thickening. The mitral valve chordae are thickened and/or calcified. Mild (1+) mitral valve insufficiency. Tricuspid Valve Normal tricuspid valve. Moderate (2+) tricuspid valve insufficiency. Right ventricular systolic pressure estimated to be 36 mmHg. Aortic Valve Trisinus/trileaflet aortic valve. Mild diffuse aortic valve thickening. Mild focal aortic valve calcification. Pulmonic Valve The pulmonic valve is not well visualized. Great Vessels The aortic root is not well visualized. Pericardium/Pleural No pericardial effusion. Medication Diluted definity 2ml given slow IV push to enhance endocardial definition. Performed a rapid injection of agitated mix of 9 cc saline and 1cc air to assess for atrial septal defect. MMode/2D Measurements & Calculations LVIDd: 5.0 cm IVSd: 1.1 cm LVOT diam: 2.0 cm LVIDs: 4.3 cm LVPWd: 1.1 cm FS: 14.4 % LVOT area: 3.2 cm2 LA dimension: 5.4 cm LAV(MOD-bp): 88.3 ml LVAd ap4: 37.9 cm2 LAV(MOD-bp) Indexed: 42.8 ml/m2 EDV(MOD-sp4): 140.7 ml LAV(MOD-sp2): 107.9 ml EDV(sp4-el): 146.1 ml LAV(MOD-sp4): 68.4 ml LVAs ap4: 28.2 cm2 ESV(MOD-sp4): 89.3 ml ESV(sp4-el): 91.2 ml EF(MOD-sp4): 36.6 % EF(sp4-el): 37.6 % SV(MOD-sp4): 51.4 ml SV(sp4-el): 54.9 ml LA A4 area: 23.6 cm2 RA A4 area: 22.9 cm2 Time Measurements MV dec time: 0.15 sec Doppler Measurements & Calculations MV E max real: 119.8 cm/sec Lat Peak E' Real: 12.5 cm/sec Ao V2 max: 169.7 cm/sec MV A max real: 34.2 cm/sec E/E' lat: 9.6 Ao max P.6 mmHg MV E/A: 3.5 Ao V2 mean: 119.3 cm/sec Ao mean P.4 mmHg Ao V2 VTI: 26.7 cm SIGRID(I,D): 2.3 cm2 SIGRID(V,D): 2.4 cm2 LV V1 max: 125.8 cm/sec MR max real: 319.1 cm/sec SV(LVOT): 61.7 ml LV V1 max P.3 mmHg MR max P.7 mmHg LV V1 mean P.0 mmHg LV V1 mean: 78.8 cm/sec LV V1 VTI: 19.4 cm PA V2 max: 60.8 cm/sec TR max real: 262.0 cm/sec TR max P.5 mmHg Interpretation Summary The study was technically difficult. Contrast injection was performed. Severe segmental systolic dysfunction (see wall motion). The estimated ejection fraction is 25 %. Moderately dilated right ventricle. Moderate global right ventricular systolic dysfunction. The left atrium is moderately enlarged. The right atrium is moderately enlarged. There is mild mitral annular calcification. Extension of the mitral annular calcification onto the posterior mitral valve leaflet. Mild diffuse mitral valve thickening. The mitral valve chordae are thickened and/or calcified. Mild (1+) mitral valve insufficiency. Moderate (2+) tricuspid valve insufficiency. Mild diffuse aortic valve thickening. Mild focal aortic valve calcification. Right ventricular systolic pressure estimated to be 36 mmHg. Transmitral diastolic flow velocities suggest diastolic dysfunction (pseudonormal pattern). Bubble contrast study negative for right to left interatrial shunt. Ordering Physician: Sreedhar Lozano Referring Physician: Bernardo Lawson Performed By: Nicholas Ashton RCS
[2018-06-03 06:23] LABS: Anion Gap 9 (5-15); BUN 35 mg/dL (7-18); BUN/Creat Ratio 26.3 RATIO (10-20); Calcium,Total 7.9 mg/dL (8.5-10.1); Chloride 100 mmol/L (98-107); Creatinine, Serum 1.33 mg/dL (0.70-1.30); EST Glomerular Filtration Rate 56 mL/min (>60); Est Glom Filt Rate - Afr Amer 68 mL/min (>60); Estimated Creatinine Clearance 47.14 ml/min; Glucose 92 mg/dL (74-106); Potassium 3.1 mmol/L (3.5-5.1); Sodium Level 138 mmol/L (136-145)
[2018-06-03 06:30] LABS: BNP,B-Type NATRIURETIC PEPTIDE 1057.9 pg/mL (0-100)
--- NOTE | 2018-06-03 07:25 | PCM.PN.HOSP ---
Patient Problems: Active and Suspected Problems (Last Reviewed 11/19/17 @ 16:27 by Micky Mauro MD) Atrial fibrillation with RVR (Acute) Subjective: Patient is a 73-year-old gentleman who was sent from PCPs office on account of feeling tired. He was also found to have a heart rate in the 140s EKG demonstrated A. fib with RVR admitted to the intensive care unit started on Cardizem drip consultation placed to cardiology patient was seen by Dr. Mauro patient underwent DC cardioversion this a.m. Objective: GENERAL: cooperative HEENT: Atraumatic; EYES; Anicteric, NECK; supple, normal thyroid, RESPIRATORY: Diminished to auscultation bilaterally, CARDIOVASCULAR: Regular S1 S2, GI: soft, non-tender, normoactive bowel sounds, : No Renal angle tenderness; EXTREMITIES: 1+ Plus bipedal pitting edema MUSCULOSKELETAL: Nonhealing wound involving the low back NEURO: Awake; no lateralizing signs. SKIN: Bilateral stasis dermatitis PSYCH; Normal affect Vitals/I&O's: Vital Signs Temp Pulse Resp BP Pulse Ox 97.9 F 127 H 21 H 128/82 H 97 06/03/18 07:00 06/03/18 07:00 06/03/18 07:00 06/03/18 07:00 06/03/18 07:00 Oxygen Flow Rate (L/min) 2 Oxygen Delivery Method Nasal Cannula Weight: 93.1 kg Body Mass Index (BMI) 31.1 Intake and Output for Last 24 Hours 06/01/18 06/02/18 06/03/18 23:59 23:59 23:59 Intake Total 682 / 682 Output Total 750 / 750 Balance -68 / -68 Laboratory Results 06/02/18 16:25: WBC 4.9, RBC 2.47 L, Hgb 8.7 L, Hct 28.1 L, MCV 113.8 H, MCH 35.2 H, MCHC 31.0 L, RDW 17.7 H, RDW Differential 73.7 H, Plt Count 363, MPV 9.4, Immature Gran % (Auto) 0.200, Neut % (Auto) 63.5, Lymph % (Auto) 14.1 L, [place] % (Auto) 20.4 H, Eos % (Auto) 1.0, Baso % (Auto) 0.8, Absolute Neuts (auto) 3.1, Absolute Lymphs (auto) 0.69 L, Total Counted Not Reportable, Platelet Estimate ADEQUATE, Polychromasia RARE, Hypochromasia 1+, Anisocytosis 1+, Macrocytosis 2+ 06/02/18 16:25: Sodium 135 L, Potassium 3.9, Chloride 97 L, Carbon Dioxide 27.0, Anion Gap 11, BUN 36 H, Creatinine 1.48 H, Estim Creat Clear Calc 42.36, Est GFR (MDRD) Af Amer 60, Est GFR (MDRD) Non-Af 49 L, BUN/Creatinine Ratio 24.3 H, Glucose 100, Calcium 8.3 L, Troponin I 0.054 H 06/02/18 16:25: B-Natriuretic Peptide 833.9 H 06/02/18 23:17: Troponin I 0.050 H 06/03/18 02:20: Troponin I 0.046 H 06/03/18 05:30: Sodium 138, Potassium 3.1 L, Chloride 100, Carbon Dioxide 29.0, Anion Gap 9, BUN 35 H, Creatinine 1.33 H, Estim Creat Clear Calc 47.14, Est GFR (MDRD) Af Amer 68, Est GFR (MDRD) Non-Af 56 L, BUN/Creatinine Ratio 26.3 H, Glucose 92, Calcium 7.9 L 06/03/18 05:30: B-Natriuretic Peptide 1057.9 H 06/03/18 05:30: Troponin I 0.045 Current Medications Acetaminophen (Tylenol) 500 mg PO Q8H PRN PRN PRN Reason: PAIN Apixaban (Eliquis) 2.5 mg PO BID [facility] Last Admin: 06/02/18 23:31 Dose: 2.5 mg Atorvastatin Calcium (Lipitor) 20 mg PO QHS [facility] Last Admin: 06/02/18 23:32 Dose: 20 mg Fentanyl (Duragesic Patch) 100 mcg TRANSDERM. Q72H [facility] Ferrous Gluconate (Ferrous Gluconate) 324 mg PO BID [facility] Last Admin: 06/02/18 23:31 Dose: 324 mg Folic Acid (Folic Acid) 1 mg PO DAILY@0800 [facility] Furosemide (Lasix) 40 mg PO DAILY [facility] Gabapentin (Neurontin) 200 mg PO DAILY@2200 [facility] Gabapentin (Neurontin) 100 mg PO DAILY@0800 [facility] Hydromorphone HCl (Dilaudid Tablet) 4 mg PO Q4H PRN PRN PRN Reason: PAIN Last Admin: 06/03/18 06:47 Dose: 4 mg Sodium Chloride () 250 mls @ 15 mls/hr IV .[id number] PRN PRN Reason: SALINE FLUSH Diltiazem HCl 125 mg/ Dextrose 125 mls @ 5 mls/hr IV .Q25H [facility]; Protocol Magnesium Hydroxide (Milk Of Magnesia) 30 ml PO DAILY PRN PRN Reason: Constipation Magnesium Oxide (Mag-Ox 400) 400 mg PO DAILY@0800 [facility] Melatonin (Melatonin) 10 mg PO QHS [facility] Last Admin: 06/02/18 23:32 Dose: 10 mg Metoprolol Succinate (Toprol Xl (Beta Yaquelin)) 12.5 mg PO BID [facility] Last Admin: 06/02/18 23:32 Dose: 12.5 mg Sodium Chloride () 5 - 15 ml IV UD PRN PRN Reason: SALINE FLUSH Last Admin: 06/02/18 23:33 Dose: 10 ml Medical Necessity - Tobacco Use Smoking Status: Former smoker Assessment/Plan All Active Problems (Last Reviewed 11/19/17 @ 16:27 by Micky Mauro MD) Atrial fibrillation with RVR (Acute) Chronic combined systolic and diastolic CHF (congestive heart failure) (Acute) Cellulitis (Resolved) Patient is a 73-year-old gentleman who was sent from PCPs office on account of feeling tired. He was also found to have a heart rate in the 140s EKG demonstrated A. fib with RVR admitted to the intensive care unit started on Cardizem drip consultation placed to cardiology 1. Paroxysmal atrial fibrillation with RVR patient was initially managed on Cardizem drip underwent successful DC cardioversion on 06/03/[address] Mauro. Is on systemic anticoagulation with Eliquis 2. Chronic diastolic congestive heart failure echo obtained on 11/27/2017 demonstrated EF of 55% and on Lasix did continue 3. Nonhealing surgical wound involving the low back following back surgery patient is seen at the wound care center consultation was placed to wound care nurse 4. Dyslipidemia patient is on atorvastatin did continue 5. Hypertension-blood pressure controlled, home medications continued with dose adjustment as needed 6. Non-Hodgkin's lymphoma currently in remission 7. History of PSVT 8. History of pulmonary embolism 9. Peripheral vascular disease 10. Chronic back pain Active Medications Acetaminophen (Tylenol) 500 mg PO Q8H PRN PRN PRN Reason: PAIN Apixaban (Eliquis) 2.5 mg PO BID [facility] Last Admin: 06/02/18 23:31 Dose: 2.5 mg Atorvastatin Calcium (Lipitor) 20 mg PO QHS [facility] Last Admin: 06/02/18 23:32 Dose: 20 mg Fentanyl (Duragesic Patch) 100 mcg TRANSDERM. Q72H [facility] Ferrous Gluconate (Ferrous Gluconate) 324 mg PO BID [facility] Last Admin: 06/02/18 23:31 Dose: 324 mg Folic Acid (Folic Acid) 1 mg PO DAILY@0800 [facility] Furosemide (Lasix) 40 mg PO DAILY [facility] Gabapentin (Neurontin) 200 mg PO DAILY@2200 [facility] Gabapentin (Neurontin) 100 mg PO DAILY@0800 [facility] Hydromorphone HCl (Dilaudid Tablet) 4 mg PO Q4H PRN PRN PRN Reason: PAIN Last Admin: 06/03/18 06:47 Dose: 4 mg Sodium Chloride () 250 mls @ 15 mls/hr IV .[id number] PRN PRN Reason: SALINE FLUSH Diltiazem HCl 125 mg/ Dextrose 125 mls @ 5 mls/hr IV .Q25H [facility]; Protocol Magnesium Hydroxide (Milk Of Magnesia) 30 ml PO DAILY PRN PRN Reason: Constipation Magnesium Oxide (Mag-Ox 400) 400 mg PO DAILY@0800 [facility] Melatonin (Melatonin) 10 mg PO QHS [facility] Last Admin: 06/02/18 23:32 Dose: 10 mg Metoprolol Succinate (Toprol Xl (Beta Yaquelin)) 12.5 mg PO BID [facility] Last Admin: 06/02/18 23:32 Dose: 12.5 mg Sodium Chloride () 5 - 15 ml IV UD PRN PRN Reason: SALINE FLUSH Last Admin: 06/02/18 23:33 Dose: 10 ml Clinical Impression(s) from Imaging Studies Chest CTA 06/02/18 15:49 IMPRESSION: 1. No evidence of pulmonary embolism or aortic dissection. No evidence of acute pulmonary process. 2. Right peripheral abdominal ascites surrounding the liver margin. Electronically Signed: Ricky Moran DO at 20:25 EST , Service support , Code Visit Inpatient E&M: 22876 Subs Hosp L3
--- NOTE | 2018-06-03 07:41 | PCM.CONS.C ---
Reason for Consult Date of Consultation: 06/03/18 Reason for Consultation: Shortness of breath and fast heart rate History of Present Illness: The patient is a 73 year old M with a history of nonischemic cardiomyopathy with minimal coronary artery disease who presented to the emergency room due to shortness of breath which apparently has been going on over the last month or so. He also noted that his heart rate was elevated and he said he has not been moving around due to recent back surgery. Due to the above he presented to the emergency room he was noted to be in atrial fibrillation flutter with a rapid ventricular response rate. He was also noted to have an elevated natruretic peptide as well as pedal edema. Cardiology was called about the admission and he was admitted for further evaluation he denies any chest pain or paroxysmal nocturnal dyspnea he has been wheezing. You do remember that last year he had presented with sepsis syndrome had reduced his ejection fraction to 25% and by November a repeat echocardiogram had demonstrated that his ejection fraction had normalized to 55% with stage I diastolic dysfunction. [] Past Medical History Allergies/Adverse Reactions: Allergies chlorthalidone Allergy (Verified 05/05/18 11:13) Unknown ramipril [From Altace] Allergy (Verified 05/05/18 11:13) Unknown sulfamethoxazole [From Bactrim] Allergy (Verified 05/05/18 11:13) Other trazodone Allergy (Verified 05/05/18 11:13) Unknown trimethoprim [From Bactrim] Allergy (Verified 05/05/18 11:13) Other prednisone Adverse Reaction (Verified 05/05/18 11:13) Swelling Home Medications: Ambulatory Orders Medication Instructions Recorded Folic Acid 1 mg PO DAILY@0800 02/05/16 Magnesium Oxide [Magnesium] 400 mg PO DAILY@0800 02/05/16 Gabapentin [Neurontin] 100 mg PO DAILY 07/04/17 Vit C/E/Zn/Coppr/Lutein/Zeaxan 1 ea PO BID 07/04/17 [Preservision Areds 2 Softgel] apixaban 5 mg tablet 2.5 mg PO BID tab 08/27/17 ferrous fumarate 325 mg (106 mg 325 mg PO BID tab 08/27/17 iron) tablet atorvastatin 20 mg tablet 20 mg PO QHS #90 tab 09/04/17 Acetaminophen [Tylenol Arthritis] 1,300 mg PO PRN PRN 06/02/18 Furosemide 40 mg PO DAILY 06/02/18 Gabapentin [Neurontin] 200 mg PO DAILY 06/02/18 Hydromorphone HCl 4 mg PO Q4H PRN PRN 06/02/18 Melatonin 10 mg PO QHS 06/02/18 Metoprolol Succinate [Toprol Xl] 12.5 mg PO BID 06/02/18 fentaNYL patch [Duragesic Patch] 100 mcg TRANSDERM. 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 Wound debridement 03/04/2017, 05/14/2017 at [facility]> - *Family History Maternal Family History: Family History (Last Reviewed 11/19/17 @ 16:27 by Micky Mauro MD) Father Diabetes Heart disease Mother Heart disease History Items: Heart Disease Paternal Family History: Family History (Last Reviewed 11/19/17 @ 16:27 by Micky Mauro MD) Father Diabetes Heart disease Mother Heart disease History Items: Diabetes Smoking Status: Former smoker Alcohol: None Drugs: None Review of Systems - Review of Systems General: Reports: Malaise. Denies: Fever, Fatigue, Night Sweats HEENT: Denies: Vision Change Cardiovascular: Reports: Shortness of Breath, Shortness of Breath at Rest, Shortness of Breath with Exertion, Peripheral Edema, Palpitations. Denies: Chest Discomfort, Orthopnea, PND, Lightheadedness, Dizziness, Near Syncope, Syncope Respiratory: Denies: Cough, Sputum Production, Hemoptysis Gastrointestinal: Denies: Indigestion, Hematemesis, Hematochezia, Melena Genitourinary: Denies: Dysuria, Hematuria Muscoloskeletal: Denies: Myalgias Skin: Denies: Rash Neurological: Denies: Dizziness Psychiatric: Denies: Anxiety Endocrine: Denies: Unexplained Weight Loss Hematologic/ Lymphatic: Denies: Anemia Subjectve: Patient seen and evaluated. Appears to be mildly short of breath. Objective: Vital Signs Temp Pulse Resp BP Pulse Ox 97.9 F 127 H 21 H 128/82 H 97 06/03/18 07:00 06/03/18 07:00 06/03/18 07:00 06/03/18 07:00 06/03/18 07:00 Oxygen Flow Rate (L/min) 2 Oxygen Delivery Method Nasal Cannula Weight: 205 lb 4.006 oz Body Mass Index (BMI) 31.1 Intake and Output for Last 24 Hours 06/01/18 06/02/18 06/03/18 23:59 23:59 23:59 Intake Total 682 / 682 Output Total 750 / 750 Balance -68 / -68 General: Awake, Alert, Oriented x 3 HEENT: PERRL, EOMI, Sclera Non Icteric Neck: Supple, Good ROM, No Lymph Node Enlargement Lungs: Diminished Ta Bases, Rales - Ta Bases Cardiovascular: Irregular Rhythm, Normal S1, Normal S2, No Murmurs, No Rubs, No Gallops Vascular: No Carotid Bruits, Normal Femoral Pulses, Normal Radial Pulses, Normal Dorsalis Pedal Pulse, Normal Posterior Tibial Pulses Abdomen: Bowel Sounds Present, Soft, Non Tender, No HSM, No Organomegaly Extremities: No Cyanosis, No Clubbing, Bilateral Edema +2 Musculoskeletal: No Erythema Skin: No Rashes Lymphatic: No Lymph Node Enlargement Neurological: No Focal Motor or Sensory Deficit Psych/Mental Status: Appropriate 06/02/18 16:25: WBC 4.9, RBC 2.47 L, Hgb 8.7 L, Hct 28.1 L, MCV 113.8 H, MCH 35.2 H, MCHC 31.0 L, RDW 17.7 H, RDW Differential 73.7 H, Plt Count 363, MPV 9.4, Immature Gran % (Auto) 0.200, Neut % (Auto) 63.5, Lymph % (Auto) 14.1 L, [place] % (Auto) 20.4 H, Eos % (Auto) 1.0, Baso % (Auto) 0.8, Absolute Neuts (auto) 3.1, Total Counted Not Reportable 06/02/18 16:25: Sodium 135 L, Potassium 3.9, Chloride 97 L, Carbon Dioxide 27.0, Anion Gap 11, BUN 36 H, Creatinine 1.48 H, Est GFR (MDRD) Af Amer 60, Est GFR (MDRD) Non-Af 49 L, BUN/Creatinine Ratio 24.3 H, Glucose 100, Calcium 8.3 L, Troponin I 0.054 H 06/02/18 16:25: B-Natriuretic Peptide 833.9 H 06/02/18 23:17: Troponin I 0.050 H 06/03/18 02:20: Troponin I 0.046 H 06/03/18 05:30: Sodium 138, Potassium 3.1 L, Chloride 100, Carbon Dioxide 29.0, Anion Gap 9, BUN 35 H, Creatinine 1.33 H, Est GFR (MDRD) Af Amer 68, Est GFR (MDRD) Non-Af 56 L, BUN/Creatinine Ratio 26.3 H, Glucose 92, Calcium 7.9 L 06/03/18 05:30: B-Natriuretic Peptide 1057.9 H 06/03/18 05:30: Troponin I 0.045 Rhythm: EKG: Atrial flutter with a rate of 130 bpm. ECHO: Preserved ejection fraction from November 2017 Assessment/Plan 1. Atrial fibrillation flutter Patient presents with a exacerbation of atrial fibrillation flutter. The duration is unknown. However the patient has been on apixaban and my recommendation at this time is that he continue the same. Due to the congestive heart failure it may be prudent to cardiovert him back into sinus rhythm as soon as possible. Risk benefits alternatives have been explained to him he understands and agrees to proceed. 2. Congestive heart failure-acute diastolic Patient presents with congestive heart failure which appears to be largely diastolic. He will continue with IV diuresis but the above may be helped with him going back into sinus rhythm. An echocardiogram will be performed later today to reassess his left ventricular function 3. Abnormal cardiac enzymes Patient was noted to have mildly abnormal cardiac enzymes. At this time it appears to be likely secondary to demand ischemia. We will however continue to evaluate. 4. Obstructive lung disease Patient has known history of obstructive lung disease Continue aggressive pulmonary toileting Thank you for allowing me to participate in the care of your patient. Please don't hesitate to call if any issues arise
--- NOTE | 2018-06-03 07:46 | CON.PCM_ITS ---
Reason for Consult Date of Consultation: 06/03/18 Reason for Consultation: Shortness of breath and fast heart rate History of Present Illness: The patient is a 73 year old M with a history of nonischemic cardiomyopathy with minimal coronary artery disease who presented to the emergency room due to shortness of breath which apparently has been going on over the last month or so. He also noted that his heart rate was elevated and he said he has not been moving around due to recent back surgery. Due to the above he presented to the emergency room he was noted to be in atrial fibrillation flutter with a rapid ventricular response rate. He was also noted to have an elevated natruretic peptide as well as pedal edema. Cardiology was called about the admission and he was admitted for further evaluation he denies any chest pain or paroxysmal nocturnal dyspnea he has been wheezing. You do remember that last year he had presented with sepsis syndrome had reduced his ejection fraction to 25% and by November a repeat echocardiogram had demonstrated that his ejection fraction had n ormalized to 55% with stage I diastolic dysfunction. [] Past Medical History Allergies/Adverse Reactions: Allergies chlorthalidone Allergy (Verified 05/05/18 11:13) Unknown ramipril [From Altace] Allergy (Verified 05/05/18 11:13) Unknown sulfamethoxazole [From Bactrim] Allergy (Verified 05/05/18 11:13) Other trazodone Allergy (Verified 05/05/18 11:13) Unknown trimethoprim [From Bactrim] Allergy (Verified 05/05/18 11:13) Other prednisone Adverse Reaction (Verified 05/05/18 11:13) Swelling Home Medications: Ambulatory Orders Medication Instructions Recorded Folic Acid 1 mg PO DAILY@0800 02/05/16 Magnesium Oxide [Magnesium] 400 mg PO DAILY@0800 02/05/16 Gabapentin [Neurontin] 100 mg PO DAILY 07/04/17 Vit C/E/Zn/Coppr/Lutein/Zeaxan 1 ea PO BID 07/04/17 [Preservision Areds 2 Softgel] apixaban 5 mg tablet 2.5 mg PO BID tab 08/27/17 ferrous fumarate 325 mg (106 mg 325 mg PO BID tab 08/27/17 iron) tablet atorvastatin 20 mg tablet 20 mg PO QHS #90 tab 09/04/17 Acetaminophen [Tylenol Arthritis] 1,300 mg PO PRN PRN 06/02/18 Furosemide 40 mg PO DAILY 06/02/18 Gabapentin [Neurontin] 200 mg PO DAILY 06/02/18 Hydromorphone HCl 4 mg PO Q4H PRN PRN 06/02/18 Melatonin 10 mg PO QHS 06/02/18 Metoprolol Succinate [Toprol Xl] 12.5 mg PO BID 06/02/18 fentaNYL patch [Duragesic Patch] 100 mcg TRANSDERM. 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 Wound debridement 03/04/2017, 05/14/2017 at [facility]> - *Family History Maternal Family History: Family History (Last Reviewed 11/19/17 @ 16:27 by Micky Mauro MD) Father Diabetes Heart disease Mother Heart disease History Items: Heart Disease Paternal Family History: Family History (Last Reviewed 11/19/17 @ 16:27 by Micky Mauro MD) Father Diabetes Heart disease Mother Heart disease History Items: Diabetes Smoking Status: Former smoker Alcohol: None Drugs: None Review of Systems - Review of Systems General: Reports: Malaise. Denies: Fever, Fatigue, Night Sweats HEENT: Denies: Vision Change Cardiovascular: Reports: Shortness of Breath, Shortness of Breath at Rest, Shortness of Breath with Exertion, Peripheral Edema, Palpitations. Denies: Chest Discomfort, Orthopnea, PND, Lightheadedness, Dizziness, Near Syncope, Syncope Respiratory: Denies: Cough, Sputum Production, Hemoptysis Gastrointestinal: Denies: Indigestion, Hematemesis, Hematochezia, Melena Genitourinary: Denies: Dysuria, Hematuria Muscoloskeletal: Denies: Myalgias Skin: Denies: Rash Neurological: Denies: Dizziness Psychiatric: Denies: Anxiety Endocrine: Denies: Unexplained Weight Loss Hematologic/ Lymphatic: Denies: Anemia Subjectve: Patient seen and evaluated. Appears to be mildly short of breath. Objective: Vital Signs Temp Pulse Resp BP Pulse Ox 97.9 F 127 H 21 H 128/82 H 97 06/03/18 07:00 06/03/18 07:00 06/03/18 07:00 06/03/18 07:00 06/03/18 07:00 Oxygen Flow Rate (L/min) 2 Oxygen Delivery Method Nasal Cannula Weight: 205 lb 4.006 oz Body Mass Index (BMI) 31.1 Intake and Output for Last 24 Hours 06/01/18 06/02/18 06/03/18 23:59 23:59 23:59 Intake Total 682 / 682 Output Total 750 / 750 Balance -68 / -68 General: Awake, Alert, Oriented x 3 HEENT: PERRL, EOMI, Sclera Non Icteric Neck: Supple, Good ROM, No Lymph Node Enlargement Lungs: Diminished Ta Bases, Rales - Ta Bases Cardiovascular: Irregular Rhythm, Normal S1, Normal S2, No Murmurs, No Rubs, No Gallops Vascular: No Carotid Bruits, Normal Femoral Pulses, Normal Radial Pulses, Normal Dorsalis Pedal Pulse, Normal Posterior Tibial Pulses Abdomen: Bowel Sounds Present, Soft, Non Tender, No HSM, No Organomegaly Extremities: No Cyanosis, No Clubbing, Bilateral Edema +2 Musculoskeletal: No Erythema Skin: No Rashes Lymphatic: No Lymph Node Enlargement Neurological: No Focal Motor or Sensory Deficit Psych/Mental Status: Appropriate 06/02/18 16:25: WBC 4.9, RBC 2.47 L, Hgb 8.7 L, Hct 28.1 L, MCV 113.8 H, MCH 35.2 H, MCHC 31.0 L, RDW 17.7 H, RDW Differential 73.7 H, Plt Count 363, MPV 9.4, Immature Gran % (Auto) 0.200, Neut % (Auto) 63.5, Lymph % (Auto) 14.1 L, Wilkin % (Auto) 20.4 H, Eos % (Auto) 1.0, Baso % (Auto) 0.8, Absolute Neuts (auto) 3.1, Total Counted Not Reportable 06/02/18 16:25: Sodium 135 L, Potassium 3.9, Chloride 97 L, Carbon Dioxide 27.0, Anion Gap 11, BUN 36 H, Creatinine 1.48 H, Est GFR (MDRD) Af Amer 60, Est GFR (MDRD) Non-Af 49 L, BUN/Creatinine Ratio 24.3 H, Glucose 100, Calcium 8.3 L, Troponin I 0.054 H 06/02/18 16:25: B-Natriuretic Peptide 833.9 H 06/02/18 23:17: Troponin I 0.050 H 06/03/18 02:20: Troponin I 0.046 H 06/03/18 05:30: Sodium 138, Potassium 3.1 L, Chloride 100, Carbon Dioxide 29.0, Anion Gap 9, BUN 35 H, Creatinine 1.33 H, Est GFR (MDRD) Af Amer 68, Est GFR (MDRD) Non-Af 56 L, BUN/Creatinine Ratio 26.3 H, Glucose 92, Calcium 7.9 L 06/03/18 05:30: B-Natriuretic Peptide 1057.9 H 06/03/18 05:30: Troponin I 0.045 Rhythm: EKG: Atrial flutter with a rate of 130 bpm. ECHO: Preserved ejection fraction from November 2017 Assessment/Plan 1. Atrial fibrillation flutter * Patient presents with a exacerbation of atrial fibrillation flutter. The duration is unknown. However the patient has been on apixaban and my recommendation at this time is that he continue the same. Due to the congestive heart failure it may be prudent to cardiovert him back into sinus rhythm as soon as possible. * Risk benefits alternatives have been explained to him he understands and agrees to proceed. * 2. Congestive heart failure-acute diastolic * Patient presents with congestive heart failure which appears to be largely diastolic. He will continue with IV diuresis but the above may be helped with him going back into sinus rhythm. An echocardiogram will be performed later today to reassess his left ventricular function 3. Abnormal cardiac enzymes * Patient was noted to have mildly abnormal cardiac enzymes. At this time it appears to be likely secondary to demand ischemia. We will however continue to evaluate. * 4. Obstructive lung disease * Patient has known history of obstructive lung disease * Continue aggressive pulmonary toileting * * Thank you for allowing me to participate in the care of your patient. Please don't hesitate to call if any issues arise
--- NOTE | 2018-06-03 08:09 | NURSING ---
/Dr. Mendes present in pt room 0806 HR 123, R 32 bP 121/59, 40mg propofol IV push per Dr. Mendes 0810 shock 200j HR 78, R 15, BP 121/60 SpO2 94 2lnc 0815 HR 78 R 17 BP 83/52 SpO2 95 2lnc rouses briefly, no c/o 0820 HR 74 R 16 BP 94/50 SpO2 100 2lnc to room air. monitor shows SR. 0825 HR 76 R 15 BP 94/57 SpO2 98 RA 0830 HR 77 R 15 BP 84/60 SpO2 95 RA
[2018-06-03] MEDS: Propofol 200 MG/20 ML Vial 40 MG IV BOLUS (08:10)
--- NOTE | 2018-06-03 08:20 | PCM.OP.BLANK ---
Operative Report Date of Procedure: 06/03/18 CONSCIOUS SEDATION REPORT DATE OF SERVICE: June 03, 2018 BRIEF HISTORY OF PRESENT ILLNESS: The patient is a 73-year-old male who was admitted to [facility] in atrial fibrillation with a rapid ventricular rate. He has a known history of COPD and obstructive sleep apnea. He is currently anticoagulated on Eliquis. The patient's last surface echocardiogram revealed an ejection fraction of 55%. The patient denies any previous anesthetic complications. He was deemed to be a candidate for DC cardioversion after being evaluated by cardiology. PHYSICAL EXAMINATION: VITAL SIGNS: Reviewed and were acceptable. GENERAL: The patient is an obese male, in no apparent distress, speaking in full sentences. HEENT: Normocephalic, atraumatic. Mucous membranes are moist and pink. Good mouth opening noted. Trachea is midline. MP II CHEST: S1, S2 irregularly irregular. No murmurs, rubs or gallops were noted. LUNGS: Diminished to auscultation bilaterally without appreciable wheezes, rales or rhonchi. ABDOMEN: Soft, nontender, nondistended. Positive bowel sounds. EXTREMITIES: There is no clubbing, cyanosis or edema. ASA Class: II DESCRIPTION OF PROCEDURE: After confirmation of informed consent, the patient's anesthesia plan was reviewed in detail. Propofol was chosen. Risks and benefits were reviewed and the patient agreed to proceed. At 0806, the patient was given 40 mg of propofol. The patient achieved an appropriate level of sedation and was given a 200 joule synchronized cardioversion by Dr. Mauro at the bedside. This was successful in achieving normal sinus rhythm. The patient was monitored until 0813, at which time he reached his baseline mental status and function. The patient tolerated the procedure well. COMPLICATIONS: None ESTIMATED BLOOD LOSS: None RECOMMENDATIONS: Okay to recover in usual fashion. Code Visit 9xxxx: Other Procedure See Report - [id number]
--- NOTE | 2018-06-03 08:32 | PCM.OP.BLANK ---
Operative Report Date of Procedure: 06/03/18 DC cardioversion. 73-year-old man with a history of paroxysmal atrial fibrillation who presents with congestive heart failure and atrial fibrillation flutter uncontrolled and symptomatic. Patient has been on apixaban continuously with no interruption. The patient was seen by Dr. Mendes of the critical care division and after informed consent was obtained anterior-posterior pads were applied. The patient was administered 40 mg of intravenous propofol. 200 J of synchronized DC cardioversion biphasic energy were applied with prompt reversal to sinus rhythm. Patient tolerated the procedure well. Conclusion: Continue apixaban Continue metoprolol and oral diltiazem
[2018-06-03] MEDS: Magnesium Oxide 400 MG Tablet PO (08:37)
[2018-06-03] MEDS: Folic Acid 1 MG Tablet PO (08:37)
[2018-06-03] MEDS: 0.9% NaCl Peripheral Flush Adult/Peds IV (08:38)
[2018-06-03] MEDS: Gabapentin 100 MG Capsule PO (08:42)
[2018-06-03] MEDS: dilTIAZem CD 120 MG Capsule PO (10:22)
[2018-06-03] MEDS: Ferrous Gluconate 324 MG Tablet PO ×2 (10:23→22:08)
[2018-06-03] MEDS: APIXABAN 2.5 MG TABLET PO ×2 (10:23→22:08)
[2018-06-03] MEDS: Metoprolol(XL)Succ 25 MG Tablet 12.5 MG PO (10:23)
--- NOTE | 2018-06-03 10:25 | NURSING ---
wound RN present in pt room
--- NOTE | 2018-06-03 10:38 | NURSING ---
report called to PCU credit charge authorizer
--- NOTE | 2018-06-03 10:49 | NURSING ---
to PCU 113 per WC on monitor, ICU staff in attendance
[2018-06-03] MEDS: Furosemide 40 MG/4 ML Vial IV (11:06)
--- NOTE | 2018-06-03 11:19 | NURSING ---
wound photo: Lower Back
--- NOTE | 2018-06-03 11:20 | CASEMGMT ---
Patient does not have healthcare POA or healthcare LW. Per ED SW he has information on documents. Aidee CARMONA MSW
--- NOTE | 2018-06-03 12:20 | NURSING ---
PT IS IRRITATED WITH STAFF, DEMANDING BED ALARM BE TURNED OFF. THIS RN INSTRUCTED PT WHY THE BED ALARM IS ON. PT STATED I WILL GET UP BY MYSELF ANYWAY. THIS RN REPEATED INSTRUCTION ABOUT BED ALARM AND STATED THAT IT WOULD REMAIN ON FOR PT'S SAFETY. PT'S FAMILY STATED TO THIS RN THAT BED ALARM NEEDED TO BE ON.
[2018-06-03] MEDS: Gabapentin 100 MG Capsule 200 MG PO (22:08)
[2018-06-03] MEDS: Atorvastatin Calcium 20 MG Tablet PO (22:08)
[2018-06-03] MEDS: MELATONIN 10 MG TABLET PO (22:08)
[2018-06-04] VITALS (13 sets, daily range): BP systolic 101–132; BP diastolic 62–66; PULSE 66–91; RESP 16; TEMP 36.4–37.2; O2SAT 92–96
--- NOTE | 2018-06-04 08:02 | PCM.PN.CARD ---
Subjectve: Patient seen and evaluated. Feels better than yesterday but still does not think he is going to the bathroom enough. Objective: Vital Signs Temp Pulse Resp BP Pulse Ox 97.6 F L 69 16 101/64 96 06/04/18 04:00 06/04/18 04:00 06/04/18 04:00 06/04/18 04:00 06/04/18 04:00 Oxygen Flow Rate (L/min) 2 Oxygen Delivery Method Room Air Weight: 205 lb 4.006 oz Body Mass Index (BMI) 31.1 Intake and Output for Last 24 Hours 06/02/18 06/03/18 06/04/18 23:59 23:59 23:59 Intake Total 2011 1383 / 1383 Output Total 950 / 950 Balance 1062 / 1062 1383 / 1383 General: Awake, Alert, Oriented x 3 HEENT: PERRL, EOMI, Sclera Non Icteric Neck: Supple, Good ROM, No Lymph Node Enlargement Lungs: Clear to auscultation Cardiovascular: Regular Rhythm, Normal S1, Normal S2, No Murmurs, No Rubs, No Gallops Vascular: No Carotid Bruits, Normal Femoral Pulses, Normal Radial Pulses, Normal Dorsalis Pedal Pulse, Normal Posterior Tibial Pulses Abdomen: Bowel Sounds Present, Soft, Non Tender, No HSM, No Organomegaly Extremities: No Cyanosis, No Clubbing, No edema, Bilateral Edema +2 Neurological: No Focal Motor or Sensory Deficit Psych/Mental Status: Appropriate Rhythm: EKG: ECHO: Stress Test: Cardiac Cath: PCI: CT Surgery: Holter monitor: EPS: PPM: CXR: Chest CT Scan: Medical Necessity - Tobacco Use Smoking Status: Former smoker Assessment/Plan 1. Atrial fibrillation flutter Patient presents with a exacerbation of atrial fibrillation flutter. The duration is unknown. However the patient has been on apixaban and my recommendation at this time is that he continue the same. He was cardioverted back to sinus rhythm yesterday and appears to be maintaining this. 2. Congestive heart failure-acute diastolic Patient presents with congestive heart failure which appears to be largely diastolic. He will continue with IV diuresis but the above may be helped with him going back into sinus rhythm. An echocardiogram performed demonstrated global reduction in left ventricular systolic function. The estimated ejection fraction was 25%. I suspect the above is likely due to the atrial flutter. Will recommend reassessing this after the patient has been in sinus rhythm for at least a month. If left ventricular dysfunction persists then would recommend cardiac catheterization. Will recommend continuing IV diuresis. 3. Abnormal cardiac enzymes Patient was noted to have mildly abnormal cardiac enzymes. At this time it appears to be likely secondary to demand ischemia. We will however continue to evaluate. 4. Obstructive lung disease Patient has known history of obstructive lung disease Continue aggressive pulmonary toileting Thank you for allowing me to participate in the care of your patient. Please don't hesitate to call if any issues arise
--- NOTE | 2018-06-04 08:06 | PN.CARD_ITS ---
Subjectve: Patient seen and evaluated. Feels better than yesterday but still does not think he is going to the bathroom enough. Objective: Vital Signs Temp Pulse Resp BP Pulse Ox 97.6 F L 69 16 101/64 96 06/04/18 04:00 06/04/18 04:00 06/04/18 04:00 06/04/18 04:00 06/04/18 04:00 Oxygen Flow Rate (L/min) 2 Oxygen Delivery Method Room Air Weight: 205 lb 4.006 oz Body Mass Index (BMI) 31.1 Intake and Output for Last 24 Hours 06/02/18 06/03/18 06/04/18 23:59 23:59 23:59 Intake Total 2011 1383 / 1383 Output Total 950 / 950 Balance 1062 / 1062 1383 / 1383 General: Awake, Alert, Oriented x 3 HEENT: PERRL, EOMI, Sclera Non Icteric Neck: Supple, Good ROM, No Lymph Node Enlargement Lungs: Clear to auscultation Cardiovascular: Regular Rhythm, Normal S1, Normal S2, No Murmurs, No Rubs, No Gallops Vascular: No Carotid Bruits, Normal Femoral Pulses, Normal Radial Pulses, Normal Dorsalis Pedal Pulse, Normal Posterior Tibial Pulses Abdomen: Bowel Sounds Present, Soft, Non Tender, No HSM, No Organomegaly Extremities: No Cyanosis, No Clubbing, No edema, Bilateral Edema +2 Neurological: No Focal Motor or Sensory Deficit Psych/Mental Status: Appropriate Rhythm: EKG: ECHO: Stress Test: Cardiac Cath: PCI: CT Surgery: Holter monitor: EPS: PPM: CXR: Chest CT Scan: Medical Necessity - Tobacco Use Smoking Status: Former smoker Assessment/Plan 1. Atrial fibrillation flutter * Patient presents with a exacerbation of atrial fibrillation flutter. The duration is unknown. However the patient has been on apixaban and my recommendation at this time is that he continue the same. * He was cardioverted back to sinus rhythm yesterday and appears to be maintaining this. * 2. Congestive heart failure-acute diastolic * Patient presents with congestive heart failure which appears to be largely diastolic. He will continue with IV diuresis but the above may be helped with him going back into sinus rhythm. An echocardiogram performed demonstrated global reduction in left ventricular systolic function. The estimated ejection fraction was 25%. I suspect the above is likely due to the atrial flutter. Will recommend reassessing this after the patient has been in sinus rhythm for at least a month. If left ventricular dysfunction persists then would recommend cardiac catheterization. * Will recommend continuing IV diuresis. 3. Abnormal cardiac enzymes * Patient was noted to have mildly abnormal cardiac enzymes. At this time it appears to be likely secondary to demand ischemia. We will however continue to evaluate. * 4. Obstructive lung disease * Patient has known history of obstructive lung disease * Continue aggressive pulmonary toileting * * Thank you for allowing me to participate in the care of your patient. Please don't hesitate to call if any issues arise
[2018-06-04] MEDS: Spironolactone 25 MG Tablet PO (08:34)
[2018-06-04] MEDS: HYDROmorphone 2 MG TABLET 4 MG PO ×4 (08:34→23:26)
[2018-06-04] MEDS: Folic Acid 1 MG Tablet PO (08:34)
[2018-06-04] MEDS: Magnesium Oxide 400 MG Tablet PO (08:35)
[2018-06-04] MEDS: Gabapentin 100 MG Capsule PO (08:35)
[2018-06-04] MEDS: dilTIAZem CD 120 MG Capsule PO (08:36)
[2018-06-04] MEDS: APIXABAN 2.5 MG TABLET PO ×2 (08:36→21:43)
[2018-06-04] MEDS: Ferrous Gluconate 324 MG Tablet PO ×2 (08:36→21:43)
[2018-06-04] MEDS: Furosemide 40 MG/4 ML Vial IV ×2 (08:37→17:06)
--- NOTE | 2018-06-04 09:47 | PCM.PN.HOSP ---
Patient Problems: Active and Suspected Problems (Last Reviewed 11/19/17 @ 16:27 by Micky Mauro MD) Atrial fibrillation with RVR (Acute) Subjective: Since seen breathing is still labored. Patient remains in sinus rhythm. Patient diuretic therapy adjusted. Objective: GENERAL: cooperative HEENT: Atraumatic; EYES; Anicteric, NECK; supple, normal thyroid, RESPIRATORY: Diminished to auscultation bilaterally, CARDIOVASCULAR: Regular S1 S2, GI: soft, non-tender, normoactive bowel sounds, : No Renal angle tenderness; EXTREMITIES: 1+ Plus bipedal pitting edema MUSCULOSKELETAL: Nonhealing wound involving the low back NEURO: Awake; no lateralizing signs. SKIN: Bilateral stasis dermatitis PSYCH; Normal affect Vitals/I&O's: Vital Signs Temp Pulse Resp BP Pulse Ox 97.6 F L 82 16 101/64 92 06/04/18 04:00 06/04/18 07:02 06/04/18 04:00 06/04/18 04:00 06/04/18 08:57 Oxygen Flow Rate (L/min) 2 Oxygen Delivery Method Room Air Weight: 93.1 kg Body Mass Index (BMI) 31.1 Intake and Output for Last 24 Hours 06/02/18 06/03/18 06/04/18 23:59 23:59 23:59 Intake Total 2011 1383 / 1383 Output Total 950 / 950 Balance 1062 / 1062 1383 / 1383 Current Medications Acetaminophen (Tylenol) 500 mg PO Q8H PRN PRN PRN Reason: PAIN Apixaban (Eliquis) 2.5 mg PO BID [facility] Last Admin: 06/04/18 08:36 Dose: 2.5 mg Atorvastatin Calcium (Lipitor) 20 mg PO QHS [facility] Last Admin: 06/03/18 22:08 Dose: 20 mg Diltiazem HCl (Cardizem Cd) 120 mg PO DAILY [facility] Last Admin: 06/04/18 08:36 Dose: 120 mg Fentanyl (Duragesic Patch) 100 mcg TRANSDERM. Q72H [facility] Last Admin: 06/04/18 08:43 Dose: 100 mcg Ferrous Gluconate (Ferrous Gluconate) 324 mg PO BID [facility] Last Admin: 06/04/18 08:36 Dose: 324 mg Folic Acid (Folic Acid) 1 mg PO DAILY@0800 [facility] Last Admin: 06/04/18 08:34 Dose: 1 mg Furosemide (Lasix) 40 mg IV BID@1000,1800 [facility] Last Admin: 06/04/18 08:37 Dose: 40 mg Gabapentin (Neurontin) 200 mg PO DAILY@2200 [facility] Last Admin: 06/03/18 22:08 Dose: 200 mg Gabapentin (Neurontin) 100 mg PO DAILY@0800 [facility] Last Admin: 06/04/18 08:35 Dose: 100 mg Hydromorphone HCl (Dilaudid Tablet) 4 mg PO Q4H PRN PRN PRN Reason: PAIN Last Admin: 06/04/18 08:34 Dose: 4 mg Sodium Chloride () 250 mls @ 15 mls/hr IV .[id number] PRN PRN Reason: SALINE FLUSH Sodium Chloride () 500 mls @ 15 mls/hr IV .[id number] [facility] Last Admin: 06/03/18 08:00 Dose: 15 mls/hr Magnesium Hydroxide (Milk Of Magnesia) 30 ml PO DAILY PRN PRN Reason: Constipation Magnesium Oxide (Mag-Ox 400) 400 mg PO DAILY@0800 [facility] Last Admin: 06/04/18 08:35 Dose: 400 mg Melatonin (Melatonin) 10 mg PO QHS [facility] Last Admin: 06/03/18 22:08 Dose: 10 mg Metoprolol Succinate (Toprol Xl (Beta Yaquelin)) 12.5 mg PO BID [facility] Last Admin: 06/03/18 22:10 Dose: Not Given Sodium Chloride () 5 - 15 ml IV UD PRN PRN Reason: SALINE FLUSH Last Admin: 06/03/18 08:38 Dose: 15 ml Spironolactone (Aldactone) 25 mg PO DAILY [facility] Last Admin: 06/04/18 08:34 Dose: 25 mg Medical Necessity - Tobacco Use Smoking Status: Former smoker Assessment/Plan All Active Problems (Last Reviewed 11/19/17 @ 16:27 by Micky Mauro MD) Atrial fibrillation with RVR (Acute) Chronic combined systolic and diastolic CHF (congestive heart failure) (Acute) Cellulitis (Resolved) Patient is a 73-year-old gentleman who was sent from PCPs office on account of feeling tired. He was also found to have a heart rate in the 140s EKG demonstrated A. fib with RVR admitted to the intensive care unit started on Cardizem drip consultation placed to cardiology 1. Paroxysmal atrial fibrillation with RVR patient was initially managed on Cardizem drip underwent successful DC cardioversion on 06/03/[address] Mauro. Is on systemic anticoagulation with Eliquis; patient has since remained in sinus rhythm 2. Acute systolic congestive heart failure echo obtained on 11/27/2017 demonstrated EF of 55%, repeat echo obtained on 06/03/2018 however demonstrated EF of 25% with segmental wall motion abnormalities. Patient currently on Lasix Aldactone added 3. Hypokalemia secondary to use of diuretics repleted per protocol 4. Nonhealing surgical wound involving the low back following back surgery patient is seen at the wound care center consultation was placed to wound care nurse 5. Hypertension-blood pressure controlled, home medications continued with dose adjustment as needed 6. Non-Hodgkin's lymphoma currently in remission 7. History of PSVT 8. History of pulmonary embolism 9. Peripheral vascular disease 10. Chronic back pain 11. Dyslipidemia patient is on atorvastatin did continue 12. DVT prophylaxis patient is on Eliquis Active Medications Acetaminophen (Tylenol) 500 mg PO Q8H PRN PRN PRN Reason: PAIN Apixaban (Eliquis) 2.5 mg PO BID [facility] Last Admin: 06/04/18 08:36 Dose: 2.5 mg Atorvastatin Calcium (Lipitor) 20 mg PO QHS [facility] Last Admin: 06/03/18 22:08 Dose: 20 mg Diltiazem HCl (Cardizem Cd) 120 mg PO DAILY [facility] Last Admin: 06/04/18 08:36 Dose: 120 mg Fentanyl (Duragesic Patch) 100 mcg TRANSDERM. Q72H [facility] Last Admin: 06/04/18 08:43 Dose: 100 mcg Ferrous Gluconate (Ferrous Gluconate) 324 mg PO BID [facility] Last Admin: 06/04/18 08:36 Dose: 324 mg Folic Acid (Folic Acid) 1 mg PO DAILY@0800 [facility] Last Admin: 06/04/18 08:34 Dose: 1 mg Furosemide (Lasix) 40 mg IV BID@1000,1800 [facility] Last Admin: 06/04/18 08:37 Dose: 40 mg Gabapentin (Neurontin) 200 mg PO DAILY@2200 [facility] Last Admin: 06/03/18 22:08 Dose: 200 mg Gabapentin (Neurontin) 100 mg PO DAILY@0800 [facility] Last Admin: 06/04/18 08:35 Dose: 100 mg Hydromorphone HCl (Dilaudid Tablet) 4 mg PO Q4H PRN PRN PRN Reason: PAIN Last Admin: 06/04/18 08:34 Dose: 4 mg Sodium Chloride () 250 mls @ 15 mls/hr IV .[id number] PRN PRN Reason: SALINE FLUSH Sodium Chloride () 500 mls @ 15 mls/hr IV .[id number] [facility] Last Admin: 06/03/18 08:00 Dose: 15 mls/hr Magnesium Hydroxide (Milk Of Magnesia) 30 ml PO DAILY PRN PRN Reason: Constipation Magnesium Oxide (Mag-Ox 400) 400 mg PO DAILY@0800 [facility] Last Admin: 06/04/18 08:35 Dose: 400 mg Melatonin (Melatonin) 10 mg PO QHS [facility] Last Admin: 06/03/18 22:08 Dose: 10 mg Metoprolol Succinate (Toprol Xl (Beta Yaquelin)) 12.5 mg PO BID [facility] Last Admin: 06/03/18 22:10 Dose: Not Given Sodium Chloride () 5 - 15 ml IV UD PRN PRN Reason: SALINE FLUSH Last Admin: 06/03/18 08:38 Dose: 15 ml Spironolactone (Aldactone) 25 mg PO DAILY [facility] Last Admin: 06/04/18 08:34 Dose: 25 mg Code Visit Inpatient E&M: [id number] [facility] Hosp L3
[2018-06-04 10:04] LABS: Hematocrit 27.1 % (40-54); Hemoglobin 8.4 g/dl (13.0-16.5); Mean Corpuscular Hgb 35.9 pg (27.0-32.0); Mean Corpuscular Volume 115.8 fL (80-94); Mean Platelet Vol. 9.1 fl (6.2-12.0); Platelet Count 353 K/mm3 (150-450); RBC Distribution Width CV 17.5 % (11.6-14.6); RBC Distribution Width SD 70.6 fl (35.1-43.9); Red Blood Count 2.34 M/mm3 (4.6-6.2); White Blood Count 5.4 K/mm3 (4.4-11.0)
[2018-06-04 10:05] LABS: Scan Indicated on CBC? Y/N YES- FLAGS NOTED
[2018-06-04] MEDS: Metoprolol(XL)Succ 25 MG Tablet 12.5 MG PO ×2 (10:31→21:42)
[2018-06-04 10:32] LABS: Anion Gap 8 (5-15); BUN 36 mg/dL (7-18); BUN/Creat Ratio 18.1 RATIO (10-20); Calcium,Total 8.3 mg/dL (8.5-10.1); Chloride 97 mmol/L (98-107); Creatinine, Serum 1.99 mg/dL (0.70-1.30); EST Glomerular Filtration Rate 35 mL/min (>60); Est Glom Filt Rate - Afr Amer 42 mL/min (>60); Estimated Creatinine Clearance 31.51 ml/min; Glucose 147 mg/dL (74-106); Magnesium 2.2 mg/dL (1.6-2.6); Potassium 4.3 mmol/L (3.5-5.1); Sodium Level 133 mmol/L (136-145)
[2018-06-04] MEDS: 0.9% NaCl Peripheral Flush Adult/Peds IV (17:06)
[2018-06-04] MEDS: Atorvastatin Calcium 20 MG Tablet PO (21:42)
[2018-06-04] MEDS: Gabapentin 100 MG Capsule 200 MG PO (21:42)
[2018-06-04] MEDS: MELATONIN 10 MG TABLET PO (21:43)
[2018-06-05] VITALS (15 sets, daily range): BP systolic 104–133; BP diastolic 50–65; PULSE 63–87; RESP 16–18; TEMP 36.6–37; O2SAT 92–96
[2018-06-05 06:49] LABS: Anion Gap 8 (5-15); BUN 43 mg/dL (7-18); BUN/Creat Ratio 19.1 RATIO (10-20); Calcium,Total 8.2 mg/dL (8.5-10.1); Chloride 97 mmol/L (98-107); Creatinine, Serum 2.25 mg/dL (0.70-1.30); EST Glomerular Filtration Rate 30 mL/min (>60); Est Glom Filt Rate - Afr Amer 37 mL/min (>60); Estimated Creatinine Clearance 27.87 ml/min; Glucose 96 mg/dL (74-106); Potassium 4.2 mmol/L (3.5-5.1); Sodium Level 132 mmol/L (136-145)
[2018-06-05 07:00] LABS: Hematocrit 28.5 % (40-54); Hemoglobin 8.9 g/dl (13.0-16.5); Mean Corp Hgb Conc 31.2 g/gl (32-36); Mean Corpuscular Hgb 36.3 pg (27.0-32.0); Mean Corpuscular Volume 116.3 fL (80-94); Mean Platelet Vol. 9.6 fl (6.2-12.0); Platelet Count 354 K/mm3 (150-450); RBC Distribution Width CV 17.1 % (11.6-14.6); RBC Distribution Width SD 69.7 fl (35.1-43.9); Red Blood Count 2.45 M/mm3 (4.6-6.2); White Blood Count 5.2 K/mm3 (4.4-11.0)
[2018-06-05 07:02] LABS: Scan Indicated on CBC? Y/N YES- FLAGS NOTED
[2018-06-05 07:19] LABS: Differential Comment SCAN
--- NOTE | 2018-06-05 07:21 | PN.CARD_ITS ---
Subjectve: Patient seen and evaluated. Appears to be saturating well and feels well still has some pedal edema. Objective: Vital Signs Temp Pulse Resp BP Pulse Ox 97.9 F 63 16 122/62 H 92 06/05/18 02:50 06/05/18 04:09 06/05/18 02:50 06/05/18 02:50 06/05/18 07:16 Oxygen Flow Rate (L/min) 2 Oxygen Delivery Method Room Air Weight: 205 lb 4.006 oz Body Mass Index (BMI) 31.1 Intake and Output for Last 24 Hours 06/03/18 06/04/18 06/05/18 23:59 23:59 23:59 Intake Total 2011 2573 / 2573 Output Total 950 / 950 500 / 500 150 / 150 Balance 1062 / 1062 2072 -150 / -150 General: Awake, Alert, Oriented x 3 HEENT: PERRL, EOMI, Sclera Non Icteric Neck: Supple, Good ROM, No Lymph Node Enlargement Lungs: Clear to auscultation Cardiovascular: Regular Rhythm, Normal S1, Normal S2, No Murmurs, No Rubs, No Gallops Vascular: No Carotid Bruits, Normal Femoral Pulses, Normal Radial Pulses, Normal Dorsalis Pedal Pulse, Normal Posterior Tibial Pulses Abdomen: Bowel Sounds Present, Soft, Non Tender, No HSM, No Organomegaly Extremities: No Cyanosis, No Clubbing, Bilateral Edema +2 Neurological: No Focal Motor or Sensory Deficit 06/04/18 09:40: WBC 5.4, RBC 2.34 L, Hgb 8.4 L, Hct 27.1 L, MCV 115.8 H, MCH 35.9 H, MCHC 31.0 L, RDW 17.5 H, RDW Differential 70.6 H, Plt Count 353, MPV 9.1 06/04/18 09:40: Sodium 133 L, Potassium 4.3, Chloride 97 L, Carbon Dioxide 28.0, Anion Gap 8, BUN 36 H, Creatinine 1.99 H, Est GFR (MDRD) Af Amer 42 L, Est GFR (MDRD) Non-Af 35 L, BUN/Creatinine Ratio 18.1, Glucose 147 H, Calcium 8.3 L, Magnesium 2.2 06/05/18 05:55: WBC 5.2, RBC 2.45 L, Hgb 8.9 L, Hct 28.5 L, MCV 116.3 H, MCH 36.3 H, MCHC 31.2 L, RDW 17.1 H, RDW Differential 69.7 H, Plt Count 354, MPV 9.6 06/05/18 05:55: Sodium 132 L, Potassium 4.2, Chloride 97 L, Carbon Dioxide 27.0, Anion Gap 8, BUN 43 H, Creatinine 2.25 H, Est GFR (MDRD) Af Amer 37 L, Est GFR ( MDRD) Non-Af 30 L, BUN/Creatinine Ratio 19.1, Glucose 96, Calcium 8.2 L Rhythm: EKG: ECHO: Stress Test: Cardiac Cath: PCI: CT Surgery: Holter monitor: EPS: PPM: CXR: Chest CT Scan: Medical Necessity - Tobacco Use Smoking Status: Former smoker Assessment/Plan 1. Atrial fibrillation flutter * Patient presents with a exacerbation of atrial fibrillation flutter. The duration is unknown. However the patient has been on apixaban and my recommendation at this time is that he continue the same. * He was cardioverted back to sinus rhythm yesterday and appears to be maintaining this. * 2. Congestive heart failure-acute diastolic * Patient presents with congestive heart failure which appears to be largely diastolic. He will continue with IV diuresis but the above may be helped with him going back into sinus rhythm. An echocardiogram performed demonstrated global reduction in left ventricular systolic function. The estimated ejection fraction was 25%. I suspect the above is likely due to the atrial flutter. Will recommend reassessing this after the patient has been in sinus rhythm for at least a month. If left ventricular dysfunction persists then would recommend cardiac catheterization. * Will recommend diuresis. 3. Abnormal cardiac enzymes * Patient was noted to have mildly abnormal cardiac enzymes. At this time it appears to be likely secondary to demand ischemia. We will however continue to evaluate. * 4. Obstructive lung disease * Patient has known history of obstructive lung disease * Continue aggressive pulmonary toileting * * Thank you for allowing me to participate in the care of your patient. Please don't hesitate to call if any issues arise
[2018-06-05] MEDS: HYDROmorphone 2 MG TABLET 4 MG PO (07:42)
[2018-06-05] MEDS: Metoprolol(XL)Succ 25 MG Tablet 12.5 MG PO (08:08)
[2018-06-05] MEDS: Furosemide 20 MG Tablet 60 MG PO ×2 (08:08→17:39)
[2018-06-05] MEDS: dilTIAZem CD 120 MG Capsule PO (08:09)
[2018-06-05] MEDS: Ferrous Gluconate 324 MG Tablet PO ×2 (08:09→21:49)
[2018-06-05] MEDS: Gabapentin 100 MG Capsule PO (08:09)
[2018-06-05] MEDS: Magnesium Oxide 400 MG Tablet PO (08:09)
[2018-06-05] MEDS: Folic Acid 1 MG Tablet PO (08:09)
[2018-06-05] MEDS: Spironolactone 25 MG Tablet PO (08:09)
[2018-06-05] MEDS: APIXABAN 2.5 MG TABLET PO ×2 (08:09→21:49)
--- NOTE | 2018-06-05 09:39 | PCM.PN.HOSP ---
Patient Problems: Active and Suspected Problems (Last Reviewed 11/19/17 @ 16:27 by Micky Mauro MD) Atrial fibrillation with RVR (Acute) Subjective: Patient seen still has significant edema involving both lower extremities. Patient has apparently not been compliant with his fluid intake he was educated on the need to be compliant. His creatinine however appears to be worsening probably as a result of his diuresis. Consultation placed the patient's imaging account manager Dr. Haines Objective: GENERAL: cooperative HEENT: Atraumatic; EYES; Anicteric, NECK; supple, normal thyroid, RESPIRATORY: Diminished to auscultation bilaterally, CARDIOVASCULAR: Regular S1 S2, GI: soft, non-tender, normoactive bowel sounds, : No Renal angle tenderness; EXTREMITIES: 1+ Plus bipedal pitting edema MUSCULOSKELETAL: Nonhealing wound involving the low back NEURO: Awake; no lateralizing signs. SKIN: Bilateral stasis dermatitis PSYCH; Normal affect Vitals/I&O's: Vital Signs Temp Pulse Resp BP Pulse Ox 98.0 F 80 16 116/65 95 06/05/18 07:40 06/05/18 08:08 06/05/18 07:40 06/05/18 07:40 06/05/18 07:40 Oxygen Flow Rate (L/min) 2 Oxygen Delivery Method Room Air Weight: 93.1 kg Body Mass Index (BMI) 31.1 Intake and Output for Last 24 Hours 06/03/18 06/04/18 06/05/18 23:59 23:59 23:59 Intake Total 2011 2573 / 2573 Output Total 950 / 950 500 / 500 150 / 150 Balance 1062 / 1062 2072 / 2072 -150 / -150 Laboratory Results 06/04/18 09:40: WBC 5.4, RBC 2.34 L, Hgb 8.4 L, Hct 27.1 L, MCV 115.8 H, MCH 35.9 H, MCHC 31.0 L, RDW 17.5 H, RDW Differential 70.6 H, Plt Count 353, MPV 9.1, Differential Comment 06/04/18 09:40: Sodium 133 L, Potassium 4.3, Chloride 97 L, Carbon Dioxide 28.0, Anion Gap 8, BUN 36 H, Creatinine 1.99 H, Estim Creat Clear Calc 31.51, Est GFR (MDRD) Af Amer 42 L, Est GFR (MDRD) Non-Af 35 L, BUN/Creatinine Ratio 18.1, Glucose 147 H, Calcium 8.3 L, Magnesium 2.2 06/05/18 05:55: WBC 5.2, RBC 2.45 L, Hgb 8.9 L, Hct 28.5 L, MCV 116.3 H, MCH 36.3 H, MCHC 31.2 L, RDW 17.1 H, RDW Differential 69.7 H, Plt Count 354, MPV 9.6, Differential Comment SCAN 06/05/18 05:55: Sodium 132 L, Potassium 4.2, Chloride 97 L, Carbon Dioxide 27.0, Anion Gap 8, BUN 43 H, Creatinine 2.25 H, Estim Creat Clear Calc 27.87, Est GFR (MDRD) Af Amer 37 L, Est GFR (MDRD) Non-Af 30 L, BUN/Creatinine Ratio 19.1, Glucose 96, Calcium 8.2 L Current Medications Acetaminophen (Tylenol) 500 mg PO Q8H PRN PRN PRN Reason: PAIN Apixaban (Eliquis) 2.5 mg PO BID [facility] Last Admin: 06/05/18 08:09 Dose: 2.5 mg Atorvastatin Calcium (Lipitor) 20 mg PO QHS [facility] Last Admin: 06/04/18 21:42 Dose: 20 mg Diltiazem HCl (Cardizem Cd) 120 mg PO DAILY [facility] Last Admin: 06/05/18 08:09 Dose: 120 mg Fentanyl (Duragesic Patch) 100 mcg TRANSDERM. Q72H [facility] Last Admin: 06/04/18 08:43 Dose: 100 mcg Ferrous Gluconate (Ferrous Gluconate) 324 mg PO BID [facility] Last Admin: 06/05/18 08:09 Dose: 324 mg Folic Acid (Folic Acid) 1 mg PO DAILY@0800 [facility] Last Admin: 06/05/18 08:09 Dose: 1 mg Furosemide (Lasix) 60 mg PO BID@1000,1800 [facility] Last Admin: 06/05/18 08:08 Dose: 60 mg Gabapentin (Neurontin) 200 mg PO DAILY@2200 [facility] Last Admin: 06/04/18 21:42 Dose: 200 mg Gabapentin (Neurontin) 100 mg PO DAILY@0800 [facility] Last Admin: 06/05/18 08:09 Dose: 100 mg Hydromorphone HCl (Dilaudid Tablet) 4 - 8 mg PO Q4H PRN PRN PRN Reason: PAIN Sodium Chloride () 250 mls @ 15 mls/hr IV .[id number] PRN PRN Reason: SALINE FLUSH Sodium Chloride () 500 mls @ 15 mls/hr IV .[id number] [facility] Last Admin: 06/04/18 10:48 Dose: Not Given Magnesium Hydroxide (Milk Of Magnesia) 30 ml PO DAILY PRN PRN Reason: Constipation Magnesium Oxide (Mag-Ox 400) 400 mg PO DAILY@0800 [facility] Last Admin: 06/05/18 08:09 Dose: 400 mg Melatonin (Melatonin) 10 mg PO QHS [facility] Last Admin: 06/04/18 21:43 Dose: 10 mg Metoprolol Succinate (Toprol Xl (Beta Yaquelin)) 12.5 mg PO BID [facility] Last Admin: 06/05/18 08:08 Dose: 12.5 mg Sodium Chloride () 5 - 15 ml IV UD PRN PRN Reason: SALINE FLUSH Last Admin: 06/04/18 17:06 Dose: 10 ml Spironolactone (Aldactone) 25 mg PO DAILY [facility] Last Admin: 06/05/18 08:09 Dose: 25 mg Medical Necessity - Tobacco Use Smoking Status: Former smoker Assessment/Plan All Active Problems (Last Reviewed 11/19/17 @ 16:27 by Micky Mauro MD) Atrial fibrillation with RVR (Acute) Chronic combined systolic and diastolic CHF (congestive heart failure) (Acute) Cellulitis (Resolved) Patient is a 73-year-old gentleman who was sent from PCPs office on account of feeling tired. He was also found to have a heart rate in the 140s EKG demonstrated A. fib with RVR admitted to the intensive care unit started on Cardizem drip consultation placed to cardiology 1. Paroxysmal atrial fibrillation with RVR patient was initially managed on Cardizem drip underwent successful DC cardioversion on 06/03/[address] Mauro. Is on systemic anticoagulation with Eliquis; patient has since remained in sinus rhythm 2. Acute systolic congestive heart failure echo obtained on 11/27/2017 demonstrated EF of 55%, repeat echo obtained on 06/03/2018 however demonstrated EF of 25% with segmental wall motion abnormalities. Patient currently on Lasix Aldactone added 3. Hypokalemia secondary to use of diuretics repleted per protocol 4. Chronic kidney disease stage III patient has been followed by Dr. Haines as outpatient consultation was placed to him in view of worsening creatinine following initiation of patient's diuretics 5. Hypertension-blood pressure controlled, home medications continued with dose adjustment as needed 6. Non-Hodgkin's lymphoma currently in remission 7. History of PSVT 8. History of pulmonary embolism 9. Peripheral vascular disease 10. Chronic back pain patient is on chronic opioids requested for adjustment of his Dilaudid dose back to his home dose 11. Dyslipidemia patient is on atorvastatin did continue 12. 4. Nonhealing surgical wound involving the low back following back surgery patient is seen at the wound care center consultation was placed to wound care nurse 13. DVT prophylaxis patient is on Eliquis Code Visit Inpatient E&M: [id number] [facility] Hosp L3
--- NOTE | 2018-06-05 09:44 | PN_ITS ---
Patient Problems: Active and Suspected Problems (Last Reviewed 11/19/17 @ 16:27 by Micky Mauro MD) Atrial fibrillation with RVR (Acute) Subjective: Patient seen still has significant edema involving both lower extremities. Patient has apparently not been compliant with his fluid intake he was educated on the need to be compliant. His creatinine however appears to be worsening probably as a result of his diuresis. Consultation placed the patient's sod stripper Dr. Haines Objective: GENERAL: cooperative HEENT: Atraumatic; EYES; Anicteric, NECK; supple, normal thyroid, RESPIRATORY: Diminished to auscultation bilaterally, CARDIOVASCULAR: Regular S1 S2, GI: soft, non-tender, normoactive bowel sounds, : No Renal angle tenderness; EXTREMITIES: 1+ Plus bipedal pitting edema MUSCULOSKELETAL: Nonhealing wound involving the low back NEURO: Awake; no lateralizing signs. SKIN: Bilateral stasis dermatitis PSYCH; Normal affect Vitals/I&O's: Vital Signs Temp Pulse Resp BP Pulse Ox 98.0 F 80 16 116/65 95 06/05/18 07:40 06/05/18 08:08 06/05/18 07:40 06/05/18 07:40 06/05/18 07:40 Oxygen Flow Rate (L/min) 2 Oxygen Delivery Method Room Air Weight: 93.1 kg Body Mass Index (BMI) 31.1 Intake and Output for Last 24 Hours 06/03/18 06/04/18 06/05/18 23:59 23:59 23:59 Intake Total 2011 2573 / 2573 Output Total 950 / 950 500 / 500 150 / 150 Balance 1062 / 1062 2072 / 2072 -150 / -150 Laboratory Results 06/04/18 09:40: WBC 5.4, RBC 2.34 L, Hgb 8.4 L, Hct 27.1 L, MCV 115.8 H, MCH 35.9 H, MCHC 31.0 L, RDW 17.5 H, RDW Differential 70.6 H, Plt Count 353, MPV 9.1, Differential Comment 06/04/18 09:40: Sodium 133 L, Potassium 4.3, Chloride 97 L, Carbon Dioxide 28.0, Anion Gap 8, BUN 36 H, Creatinine 1.99 H, Estim Creat Clear Calc 31.51, Est GFR (MDRD) Af Amer 42 L, Est GFR (MDRD) Non-Af 35 L, BUN/Creatinine Ratio 18.1, Glucose 147 H, Calcium 8.3 L, Magnesium 2.2 06/05/18 05:55: WBC 5.2, RBC 2.45 L, Hgb 8.9 L, Hct 28.5 L, MCV 116.3 H, MCH 36.3 H, MCHC 31.2 L, RDW 17.1 H, RDW Differential 69.7 H, Plt Count 354, MPV 9.6, Differential Comment SCAN 06/05/18 05:55: Sodium 132 L, Potassium 4.2, Chloride 97 L, Carbon Dioxide 27.0, Anion Gap 8, BUN 43 H, Creatinine 2.25 H, Estim Creat Clear Calc 27.87, Est GFR (MDRD) Af Amer 37 L, Est GFR (MDRD) Non-Af 30 L, BUN/Creatinine Ratio 19.1, Glucose 96, Calcium 8.2 L Current Medications Acetaminophen (Tylenol) 500 mg PO Q8H PRN PRN PRN Reason: PAIN Apixaban (Eliquis) 2.5 mg PO BID [facility] Last Admin: 06/05/18 08:09 Dose: 2.5 mg Atorvastatin Calcium (Lipitor) 20 mg PO QHS [facility] Last Admin: 06/04/18 21:42 Dose: 20 mg Diltiazem HCl (Cardizem Cd) 120 mg PO DAILY [facility] Last Admin: 06/05/18 08:09 Dose: 120 mg Fentanyl (Duragesic Patch) 100 mcg TRANSDERM. Q72H [facility] Last Admin: 06/04/18 08:43 Dose: 100 mcg Ferrous Gluconate (Ferrous Gluconate) 324 mg PO BID [facility] Last Admin: 06/05/18 08:09 Dose: 324 mg Folic Acid (Folic Acid) 1 mg PO DAILY@0800 [facility] Last Admin: 06/05/18 08:09 Dose: 1 mg Furosemide (Lasix) 60 mg PO BID@1000,1800 [facility] Last Admin: 06/05/18 08:08 Dose: 60 mg Gabapentin (Neurontin) 200 mg PO DAILY@2200 [facility] Last Admin: 06/04/18 21:42 Dose: 200 mg Gabapentin (Neurontin) 100 mg PO DAILY@0800 [facility] Last Admin: 06/05/18 08:09 Dose: 100 mg Hydromorphone HCl (Dilaudid Tablet) 4 - 8 mg PO Q4H PRN PRN PRN Reason: PAIN Sodium Chloride () 250 mls @ 15 mls/hr IV .[id number] PRN PRN Reason: SALINE FLUSH Sodium Chloride () 500 mls @ 15 mls/hr IV .[id number] [facility] Last Admin: 06/04/18 10:48 Dose: Not Given Magnesium Hydroxide (Milk Of Magnesia) 30 ml PO DAILY PRN PRN Reason: Constipation Magnesium Oxide (Mag-Ox 400) 400 mg PO DAILY@0800 [facility] Last Admin: 06/05/18 08:09 Dose: 400 mg Melatonin (Melatonin) 10 mg PO QHS [facility] Last Admin: 06/04/18 21:43 Dose: 10 mg Metoprolol Succinate (Toprol Xl (Beta Yaquelin)) 12.5 mg PO BID [facility] Last Admin: 06/05/18 08:08 Dose: 12.5 mg Sodium Chloride () 5 - 15 ml IV UD PRN PRN Reason: SALINE FLUSH Last Admin: 06/04/18 17:06 Dose: 10 ml Spironolactone (Aldactone) 25 mg PO DAILY [facility] Last Admin: 06/05/18 08:09 Dose: 25 mg Medical Necessity - Tobacco Use Smoking Status: Former smoker Assessment/Plan All Active Problems (Last Reviewed 11/19/17 @ 16:27 by Micky Mauro MD) Atrial fibrillation with RVR (Acute) Chronic combined systolic and diastolic CHF (congestive heart failure) (Acute) Cellulitis (Resolved) Patient is a 73-year-old gentleman who was sent from PCPs office on account of feeling tired. He was also found to have a heart rate in the 140s EKG demonstrated A. fib with RVR admitted to the intensive care unit started on Cardizem drip consultation placed to cardiology 1. Paroxysmal atrial fibrillation with RVR patient was initially managed on Cardizem drip underwent successful DC cardioversion on 06/03/[address] Mauro. Is on systemic anticoagulation with Eliquis; patient has since remained in sinus rhythm 2. Acute systolic congestive heart failure echo obtained on 11/27/2017 demonstrated EF of 55%, repeat echo obtained on 06/03/2018 however demonstrated EF of 25% with segmental wall motion abnormalities. Patient currently on Lasix Aldactone added 3. Hypokalemia secondary to use of diuretics repleted per protocol 4. Chronic kidney disease stage III patient has been followed by Dr. Haines as outpatient consultation was placed to him in view of worsening creatinine following initiation of patient's diuretics 5. Hypertension-blood pressure controlled, home medications continued with dose adjustment as needed 6. Non-Hodgkin's lymphoma currently in remission 7. History of PSVT 8. History of pulmonary embolism 9. Peripheral vascular disease 10. Chronic back pain patient is on chronic opioids requested for adjustment of his Dilaudid dose back to his home dose 11. Dyslipidemia patient is on atorvastatin did continue 12. 4. Nonhealing surgical wound involving the low back following back surgery patient is seen at the wound care center consultation was placed to wound care nurse 13. DVT prophylaxis patient is on Eliquis Code Visit Inpatient E&M: [id number] [facility] Hosp L3
--- NOTE | 2018-06-05 10:58 | NURSING ---
attempted to provide education regarding CHF and management to pt using the Ipad, but pt refused. provided heart failure booklet and zone management forms and verbally explained them. requested pt read through them, and let me know if he has any questions. pt verbalized understanding.
[2018-06-05] MEDS: HYDROmorphone 2 MG TABLET PO (13:16)
--- NOTE | 2018-06-05 14:57 | PCM.CONS.R ---
Problem List (1) Chronic kidney disease Status: Chronic Qualifiers: Consultation - Renal 06/05/18 PCP/ Referring MD: Requesting physician: Dr Reed Primary care physician: Bernardo Lawson DO Reason for Consultation:: BRIANA - History of Present Illness History of Present Illness: The patient is a 73 year old M well known to us from office. has CKD stage 3 at baseline with cr around 1.1 to 1.3. In the past he had BRIANA requiring dialysis due to AIN. AIN was likely related to a new antidepressant that was started then. has been off dialysis for almost a year now. admitted with fluid overload in setting of AFlutter s/p cardioversion - Allergies Allergies: Allergies chlorthalidone Allergy (Verified 05/05/18 11:13) Unknown ramipril [From Altace] Allergy (Verified 05/05/18 11:13) Unknown sulfamethoxazole [From Bactrim] Allergy (Verified 05/05/18 11:13) Other trazodone Allergy (Verified 05/05/18 11:13) Unknown trimethoprim [From Bactrim] Allergy (Verified 05/05/18 11:13) Other prednisone Adverse Reaction (Verified 05/05/18 11:13) Swelling - Current Medications Current Medications: Current Medications Acetaminophen (Tylenol) 500 mg PO Q8H PRN PRN PRN Reason: PAIN Apixaban (Eliquis) 2.5 mg PO BID [facility] Last Admin: 06/05/18 08:09 Dose: 2.5 mg Atorvastatin Calcium (Lipitor) 20 mg PO QHS [facility] Last Admin: 06/04/18 21:42 Dose: 20 mg Diltiazem HCl (Cardizem Cd) 120 mg PO DAILY [facility] Last Admin: 06/05/18 08:09 Dose: 120 mg Fentanyl (Duragesic Patch) 100 mcg TRANSDERM. Q72H [facility] Last Admin: 06/04/18 08:43 Dose: 100 mcg Ferrous Gluconate (Ferrous Gluconate) 324 mg PO BID [facility] Last Admin: 06/05/18 08:09 Dose: 324 mg Folic Acid (Folic Acid) 1 mg PO DAILY@0800 [facility] Last Admin: 06/05/18 08:09 Dose: 1 mg Furosemide (Lasix) 60 mg PO BID@1000,1800 [facility] Last Admin: 06/05/18 08:08 Dose: 60 mg Gabapentin (Neurontin) 200 mg PO DAILY@2200 [facility] Last Admin: 06/04/18 21:42 Dose: 200 mg Gabapentin (Neurontin) 100 mg PO DAILY@0800 [facility] Last Admin: 06/05/18 08:09 Dose: 100 mg Hydromorphone HCl (Dilaudid Tablet) 4 - 8 mg PO Q4H PRN PRN PRN Reason: PAIN Last Admin: 06/05/18 13:16 Dose: 4 mg Sodium Chloride () 250 mls @ 15 mls/hr IV .[id number] PRN PRN Reason: SALINE FLUSH Sodium Chloride () 500 mls @ 15 mls/hr IV .[id number] [facility] Last Admin: 06/04/18 10:48 Dose: Not Given Magnesium Hydroxide (Milk Of Magnesia) 30 ml PO DAILY PRN PRN Reason: Constipation Magnesium Oxide (Mag-Ox 400) 400 mg PO DAILY@0800 [facility] Last Admin: 06/05/18 08:09 Dose: 400 mg Melatonin (Melatonin) 10 mg PO QHS [facility] Last Admin: 06/04/18 21:43 Dose: 10 mg Metoprolol Succinate (Toprol Xl (Beta Yaquelin)) 12.5 mg PO BID [facility] Last Admin: 06/05/18 08:08 Dose: 12.5 mg Sodium Chloride () 5 - 15 ml IV UD PRN PRN Reason: SALINE FLUSH Last Admin: 06/04/18 17:06 Dose: 10 ml - Past Medical History Past Medical History (Chronic Problems): Chronic Problems (Last Reviewed 11/19/17 @ 16:27 by Micky Mauro MD) Secondary pulmonary arterial hypertension (Chronic) Nonhealing surgical wound (Chronic) Open wound of lower back (Chronic) Osteomyelitis of lumbar spine (Chronic) 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) History of non-Hodgkin's lymphoma (Chronic) Ascending aorta dilatation (Chronic) Aortic root dilatation (Chronic) PSVT (paroxysmal supraventricular tachycardia) (Chronic) Cardiomyopathy, dilated (Chronic) Paroxysmal atrial fibrillation (Chronic) Pleural effusion (Chronic) Pericardial effusion (Chronic) Pulmonary embolism (Chronic) Chronic kidney disease (Chronic) Non-Hodgkin lymphoma (Chronic) Hyperlipidemia (Chronic) Hypertension (Chronic) Peripheral vascular disease (Chronic) - Past Surgical History Surgical History: colectomy - Partial., - - Splenectomy, Ileostomy reversal, L4-5 discectomy. Wound debridement 03/04/2017, 05/14/2017 at [facility]> - Social History Smoking Status: Former smoker Alcohol: None Drugs: None - Family History Maternal Family History: Family History (Last Reviewed 11/19/17 @ 16:27 by Micky Mauro MD) Father Diabetes Heart disease Mother Heart disease History Items: Heart Disease Paternal Family History: Family History (Last Reviewed 11/19/17 @ 16:27 by Micky Mauro MD) Father Diabetes Heart disease Mother Heart disease History Items: Diabetes Review of Systems Constitutional: Denies: Chills, Fever, Weight Change HEENT: Denies: Head Aches, Sinus Congestion, Sinus Drainage Cardiovascular: Reports: Edema. Denies: Chest Pain, Palpitations Respiratory: Reports: Shortness of Breath, Shortness of breath at rest. Denies: Cough, Sputum production Gastrointestinal: Denies: Abdominal Pain, Nausea, Vomiting Genitourinary: Denies: Dysuria Musculoskeletal: Denies: Joint Pain, Joint Tenderness Skin: Denies: Rash, Wounds Neurological: Denies: Numbness, Tingling, Focal weakness Psychiatric: Denies: Anxiety, Depression, Homicidal Ideations, Suicidal Ideations Hematologic/ Lymphatic: Denies: Easy Bruising, Easy Bleeding Patient Problems: Active and Suspected Problems (Last Reviewed 11/19/17 @ 16:27 by Micky Mauro MD) Atrial fibrillation with RVR (Acute) - Physical Exam General: Alert, Oriented x3, Cooperative HEENT: Atraumatic, PERRLA, EOMI, Normocephalic Neck: Supple, No JVD, Negative Carotid Bruits Lungs: Clear to auscultation, Normal air movement Cardiovascular: Regular rate, No murmurs Abdomen: Bowel Sounds Present, Soft, Non Tender Extremities: Capillary Refill Less than 3 Seconds, Edema Skin: No rashes, No breakdown Musculoskeletal: No Tenderness to Palpation of Joints or Extremities Neurological: Cranial nerves II-XII grossly intact Psych/Mental Status: Normal Affect, Appropriate Vital Signs Temp Pulse Resp BP Pulse Ox 98.3 F 82 18 133/65 H 95 06/05/18 14:40 06/05/18 14:40 06/05/18 14:40 06/05/18 14:40 06/05/18 14:40 Oxygen Flow Rate (L/min) 2 Oxygen Delivery Method Room Air Weight: 93.1 kg Body Mass Index (BMI) 31.1 Intake and Output for Last 24 Hours 06/03/18 06/04/18 06/05/18 23:59 23:59 23:59 Intake Total 2011 2573 / 2573 240 / 240 Output Total 950 / 950 500 / 500 600 / 600 Balance 1062 / 1062 2072 / 207 -360 / -360 Laboratory Tests Past 24 Hrs 06/05/18 06/05/18 05:55 05:55 WBC 5.2 RBC 2.45 L Hgb 8.9 L Hct 28.5 L MCV 116.3 H MCH 36.3 H MCHC 31.2 L RDW 17.1 H RDW Differential 69.7 H Plt Count 354 MPV 9.6 Differential Comment SCAN Sodium 132 L Potassium 4.2 Chloride 97 L Carbon Dioxide 27.0 Anion Gap 8 BUN 43 H Creatinine 2.25 H Estim Creat Clear Calc 27.87 Est GFR (MDRD) Af Amer 37 L Est GFR (MDRD) Non-Af 30 L BUN/Creatinine Ratio 19.1 Glucose 96 Calcium 8.2 L Assessment/Plan All Active Problems (Last Reviewed 11/19/17 @ 16:27 by Micky Mauro MD) Atrial fibrillation with RVR (Acute) Chronic combined systolic and diastolic CHF (congestive heart failure) (Acute) Cellulitis (Resolved) BRIANA CKD stage 3. CKD stage 3 with prior baseline creatinine around 1.1 to 1.2. BRIANA this hospitalization. did received CT with contrast on 06/02 and cr started rising within next 48 hours. likely LILIBETH does not have any obstructive symptoms. Hopefully cr will peak in next 2 days CHF. EF was ok in November now down significantly. likely related to AFlutter as per cardio. s/p cardioversion. continue oral lasix for now. hold aldactone since cr is still rising. has significant edema. will increase diuretics once cr settles down anemia. gets KACEY as outpatient. continue oral Iron back infection. follows with wound centre here in [place]. used to follow with [facility] but now planning to go to [facility]. will follow
--- NOTE | 2018-06-05 15:03 | CON.PCM_ITS ---
Problem List (1) Chronic kidney disease Status: Chronic Qualifiers: Consultation - Renal 06/05/18 PCP/ Referring MD: Requesting physician: Dr Reed Primary care physician: Bernardo Lawson DO Reason for Consultation:: BRIANA - History of Present Illness History of Present Illness: The patient is a 73 year old M well known to us from office. has CKD stage 3 at baseline with cr around 1.1 to 1.3. In the past he had BRIANA requiring dialysis due to AIN. AIN was likely related to a new antidepressant that was started then. has been off dialysis for almost a year now. admitted with fluid overload in setting of AFlutter s/p cardioversion - Allergies Allergies: Allergies chlorthalidone Allergy (Verified 05/05/18 11:13) Unknown ramipril [From Altace] Allergy (Verified 05/05/18 11:13) Unknown sulfamethoxazole [From Bactrim] Allergy (Verified 05/05/18 11:13) Other trazodone Allergy (Verified 05/05/18 11:13) Unknown trimethoprim [From Bactrim] Allergy (Verified 05/05/18 11:13) Other prednisone Adverse Reaction (Verified 05/05/18 11:13) Swelling - Current Medications Current Medications: Current Medications Acetaminophen (Tylenol) 500 mg PO Q8H PRN PRN PRN Reason: PAIN Apixaban (Eliquis) 2.5 mg PO BID [facility] Last Admin: 06/05/18 08:09 Dose: 2.5 mg Atorvastatin Calcium (Lipitor) 20 mg PO QHS [facility] Last Admin: 06/04/18 21:42 Dose: 20 mg Diltiazem HCl (Cardizem Cd) 120 mg PO DAILY [facility] Last Admin: 06/05/18 08:09 Dose: 120 mg Fentanyl (Duragesic Patch) 100 mcg TRANSDERM. Q72H [facility] Last Admin: 06/04/18 08:43 Dose: 100 mcg Ferrous Gluconate (Ferrous Gluconate) 324 mg PO BID [facility] Last Admin: 06/05/18 08:09 Dose: 324 mg Folic Acid (Folic Acid) 1 mg PO DAILY@0800 [facility] Last Admin: 06/05/18 08:09 Dose: 1 mg Furosemide (Lasix) 60 mg PO BID@1000,1800 [facility] Last Admin: 06/05/18 08:08 Dose: 60 mg Gabapentin (Neurontin) 200 mg PO DAILY@2200 [facility] Last Admin: 06/04/18 21:42 Dose: 200 mg Gabapentin (Neurontin) 100 mg PO DAILY@0800 [facility] Last Admin: 06/05/18 08:09 Dose: 100 mg Hydromorphone HCl (Dilaudid Tablet) 4 - 8 mg PO Q4H PRN PRN PRN Reason: PAIN Last Admin: 06/05/18 13:16 Dose: 4 mg Sodium Chloride () 250 mls @ 15 mls/hr IV .[id number] PRN PRN Reason: SALINE FLUSH Sodium Chloride () 500 mls @ 15 mls/hr IV .[id number] [facility] Last Admin: 06/04/18 10:48 Dose: Not Given Magnesium Hydroxide (Milk Of Magnesia) 30 ml PO DAILY PRN PRN Reason: Constipation Magnesium Oxide (Mag-Ox 400) 400 mg PO DAILY@0800 [facility] Last Admin: 06/05/18 08:09 Dose: 400 mg Melatonin (Melatonin) 10 mg PO QHS [facility] Last Admin: 06/04/18 21:43 Dose: 10 mg Metoprolol Succinate (Toprol Xl (Beta Yaquelin)) 12.5 mg PO BID [facility] Last Admin: 06/05/18 08:08 Dose: 12.5 mg Sodium Chloride () 5 - 15 ml IV UD PRN PRN Reason: SALINE FLUSH Last Admin: 06/04/18 17:06 Dose: 10 ml - Past Medical History Past Medical History (Chronic Problems): Chronic Problems (Last Reviewed 11/19/17 @ 16:27 by Micky Mauro MD) Secondary pulmonary arterial hypertension (Chronic) Nonhealing surgical wound (Chronic) Open wound of lower back (Chronic) Osteomyelitis of lumbar spine (Chronic) 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) History of non-Hodgkin's lymphoma (Chronic) Ascending aorta dilatation (Chronic) Aortic root dilatation (Chronic) PSVT (paroxysmal supraventricular tachycardia) (Chronic) Cardiomyopathy, dilated (Chronic) Paroxysmal atrial fibrillation (Chronic) Pleural effusion (Chronic) Pericardial effusion (Chronic) Pulmonary embolism (Chronic) Chronic kidney disease (Chronic) Non-Hodgkin lymphoma (Chronic) Hyperlipidemia (Chronic) Hypertension (Chronic) Peripheral vascular disease (Chronic) - Past Surgical History Surgical History: colectomy - Partial., - - Splenectomy, Ileostomy reversal, L4- 5 discectomy. Wound debridement 03/04/2017, 05/14/2017 at [facility]> - Social History Smoking Status: Former smoker Alcohol: None Drugs: None - Family History Maternal Family History: Family History (Last Reviewed 11/19/17 @ 16:27 by Micky Mauro MD) Father Diabetes Heart disease Mother Heart disease History Items: Heart Disease Paternal Family History: Family History (Last Reviewed 11/19/17 @ 16:27 by Micky Mauro MD) Father Diabetes Heart disease Mother Heart disease History Items: Diabetes Review of Systems Constitutional: Denies: Chills, Fever, Weight Change HEENT: Denies: Head Aches, Sinus Congestion, Sinus Drainage Cardiovascular: Reports: Edema. Denies: Chest Pain, Palpitations Respiratory: Reports: Shortness of Breath, Shortness of breath at rest. Denies: Cough, Sputum production Gastrointestinal: Denies: Abdominal Pain, Nausea, Vomiting Genitourinary: Denies: Dysuria Musculoskeletal: Denies: Joint Pain, Joint Tenderness Skin: Denies: Rash, Wounds Neurological: Denies: Numbness, Tingling, Focal weakness Psychiatric: Denies: Anxiety, Depression, Homicidal Ideations, Suicidal Ideations Hematologic/ Lymphatic: Denies: Easy Bruising, Easy Bleeding Patient Problems: Active and Suspected Problems (Last Reviewed 11/19/17 @ 16:27 by Micky Mauro MD) Atrial fibrillation with RVR (Acute) - Physical Exam General: Alert, Oriented x3, Cooperative HEENT: Atraumatic, PERRLA, EOMI, Normocephalic Neck: Supple, No JVD, Negative Carotid Bruits Lungs: Clear to auscultation, Normal air movement Cardiovascular: Regular rate, No murmurs Abdomen: Bowel Sounds Present, Soft, Non Tender Extremities: Capillary Refill Less than 3 Seconds, Edema Skin: No rashes, No breakdown Musculoskeletal: No Tenderness to Palpation of Joints or Extremities Neurological: Cranial nerves II-XII grossly intact Psych/Mental Status: Normal Affect, Appropriate Vital Signs Temp Pulse Resp BP Pulse Ox 98.3 F 82 18 133/65 H 95 06/05/18 14:40 06/05/18 14:40 06/05/18 14:40 06/05/18 14:40 06/05/18 14:40 Oxygen Flow Rate (L/min) 2 Oxygen Delivery Method Room Air Weight: 93.1 kg Body Mass Index (BMI) 31.1 Intake and Output for Last 24 Hours 06/03/18 06/04/18 06/05/18 23:59 23:59 23:59 Intake Total 2011 2573 / 2573 240 / 240 Output Total 950 / 950 500 / 500 600 / 600 Balance 1062 / 1062 2072 / 207 -360 / -360 Laboratory Tests Past 24 Hrs 06/05/18 06/05/18 05:55 05:55 WBC 5.2 RBC 2.45 L Hgb 8.9 L Hct 28.5 L MCV 116.3 H MCH 36.3 H MCHC 31.2 L RDW 17.1 H RDW Differential 69.7 H Plt Count 354 MPV 9.6 Differential Comment SCAN Sodium 132 L Potassium 4.2 Chloride 97 L Carbon Dioxide 27.0 Anion Gap 8 BUN 43 H Creatinine 2.25 H Estim Creat Clear Calc 27.87 Est GFR (MDRD) Af Amer 37 L Est GFR (MDRD) Non-Af 30 L BUN/Creatinine Ratio 19.1 Glucose 96 Calcium 8.2 L Assessment/Plan All Active Problems (Last Reviewed 11/19/17 @ 16:27 by Micky Mauro MD) Atrial fibrillation with RVR (Acute) Chronic combined systolic and diastolic CHF (congestive heart failure) (Acute) Cellulitis (Resolved) BRIANA CKD stage 3. CKD stage 3 with prior baseline creatinine around 1.1 to 1.2. BRIANA this hospitalization. did received CT with contrast on 06/02 and cr started rising within next 48 hours. likely LILIBETH does not have any obstructive symptoms. Hopefully cr will peak in next 2 days CHF. EF was ok in November now down significantly. likely related to AFlutter as per cardio. s/p cardioversion. continue oral lasix for now. hold aldactone since cr is still rising. has significant edema. will increase diuretics once cr settles down anemia. gets KACEY as outpatient. continue oral Iron back infection. follows with wound centre here in [place]. used to follow with [facility] but now planning to go to [facility]. will follow
[2018-06-05] MEDS: Atorvastatin Calcium 20 MG Tablet PO (21:49)
[2018-06-05] MEDS: Gabapentin 100 MG Capsule 200 MG PO (21:49)
[2018-06-05] MEDS: MELATONIN 10 MG TABLET PO (21:49)
[2018-06-05] MEDS: Acetaminophen 500 MG Tablet PO (21:52)
[2018-06-06] VITALS (13 sets, daily range): BP systolic 108–130; BP diastolic 41–76; PULSE 68–91; RESP 16–18; TEMP 36.5–37.1; O2SAT 92–97
[2018-06-06] MEDS: HYDROmorphone 2 MG TABLET PO ×4 (03:16→20:50)
[2018-06-06 05:51] LABS: Anion Gap 11 (5-15); BUN 48 mg/dL (7-18); BUN/Creat Ratio 21.5 RATIO (10-20); Calcium,Total 8.6 mg/dL (8.5-10.1); Chloride 98 mmol/L (98-107); Creatinine, Serum 2.23 mg/dL (0.70-1.30); EST Glomerular Filtration Rate 31 mL/min (>60); Est Glom Filt Rate - Afr Amer 37 mL/min (>60); Estimated Creatinine Clearance 28.12 ml/min; Glucose 95 mg/dL (74-106); Sodium Level 137 mmol/L (136-145)
[2018-06-06 06:12] LABS: Hematocrit 31.3 % (40-54); Hemoglobin 9.9 g/dl (13.0-16.5); Mean Corp Hgb Conc 31.6 g/gl (32-36); Mean Corpuscular Hgb 36.1 pg (27.0-32.0); Mean Corpuscular Volume 114.2 fL (80-94); Mean Platelet Vol. 9.4 fl (6.2-12.0); Platelet Count 397 K/mm3 (150-450); RBC Distribution Width SD 68.8 fl (35.1-43.9); Red Blood Count 2.74 M/mm3 (4.6-6.2); White Blood Count 4.8 K/mm3 (4.4-11.0)
[2018-06-06 06:14] LABS: Scan Indicated on CBC? Y/N YES- FLAGS NOTED
[2018-06-06 06:43] LABS: Differential Comment SCAN
--- NOTE | 2018-06-06 08:06 | PN.CARD_ITS ---
Subjectve: Patient seen and evaluated. Appears to be doing well and walking the hallways. Objective: Vital Signs Temp Pulse Resp BP Pulse Ox 97.7 F L 90 16 118/63 94 06/06/18 03:08 06/06/18 07:55 06/06/18 03:08 06/06/18 03:08 06/06/18 03:08 Oxygen Flow Rate (L/min) 2 Oxygen Delivery Method Room Air Weight: 200 lb 6.403 oz Body Mass Index (BMI) 31.1 Intake and Output for Last 24 Hours 06/04/18 06/05/18 06/06/18 23:59 23:59 23:59 Intake Total 2573 / 2573 1000 / 1000 477 / 477 Output Total 500 / 500 900 / 900 850 / 850 Balance 2072 / 2072 100 / 100 -373 / -373 General: Awake, Alert, Oriented x 3 HEENT: PERRL, EOMI, Sclera Non Icteric Neck: Supple, Good ROM, No Lymph Node Enlargement Lungs: Clear to auscultation Cardiovascular: Regular Rhythm, Normal S1, Normal S2, No Murmurs, No Rubs, No Gallops Vascular: No Carotid Bruits, Normal Femoral Pulses, Normal Radial Pulses, Normal Dorsalis Pedal Pulse, Normal Posterior Tibial Pulses Abdomen: Bowel Sounds Present, Soft, Non Tender, No HSM, No Organomegaly Extremities: No Cyanosis, No Clubbing, No edema Neurological: No Focal Motor or Sensory Deficit 06/06/18 05:22: WBC 4.8, RBC 2.74 L, Hgb 9.9 L, Hct 31.3 L, MCV 114.2 H, MCH 36.1 H, MCHC 31.6 L, RDW 17.0 H, RDW Differential 68.8 H, Plt Count 397, MPV 9.4 06/06/18 05:22: Sodium 137, Potassium 4.0, Chloride 98, Carbon Dioxide 28.0, Anion Gap 11, BUN 48 H, Creatinine 2.23 H, Est GFR (MDRD) Af Amer 37 L, Est GFR (MDRD) Non-Af 31 L, BUN/Creatinine Ratio 21.5 H, Glucose 95, Calcium 8.6 Rhythm: EKG: ECHO: Stress Test: Cardiac Cath: PCI: CT Surgery: Holter monitor: EPS: PPM: CXR: Chest CT Scan: Medical Necessity - Tobacco Use Smoking Status: Former smoker Assessment/Plan 1. Atrial fibrillation flutter * Patient presents with a exacerbation of atrial fibrillation flutter. The duration is unknown. However the patient has been on apixaban and my recommendation at this time is that he continue the same. * He was cardioverted back to sinus rhythm yesterday and appears to be maintaining this. * 2. Congestive heart failure-acute diastolic * Patient presents with congestive heart failure which appears to be largely diastolic. He will continue with IV diuresis but the above may be helped with him going back into sinus rhythm. An echocardiogram performed demonstrated global reduction in left ventricular systolic function. The estimated ejection fraction was 25%. I suspect the above is likely due to the atrial flutter. Will recommend reassessing this after the patient has been in sinus rhythm for at least a month. If left ventricular dysfunction persists then would recommend cardiac catheterization. * Will recommend diuresis. * His creatinine appears to have stabilized. 3. Abnormal cardiac enzymes * Patient was noted to have mildly abnormal cardiac enzymes. At this time it appears to be likely secondary to demand ischemia. We will however continue to evaluate. * 4. Obstructive lung disease * Patient has known history of obstructive lung disease * Continue aggressive pulmonary toileting * * Thank you for allowing me to participate in the care of your patient. Please don't hesitate to call if any issues arise
[2018-06-06] MEDS: Magnesium Oxide 400 MG Tablet PO (08:42)
[2018-06-06] MEDS: Gabapentin 100 MG Capsule PO (08:42)
[2018-06-06] MEDS: Folic Acid 1 MG Tablet PO (08:42)
[2018-06-06] MEDS: APIXABAN 2.5 MG TABLET PO ×2 (08:43→21:05)
[2018-06-06] MEDS: dilTIAZem CD 120 MG Capsule PO (08:43)
[2018-06-06] MEDS: Ferrous Gluconate 324 MG Tablet PO ×2 (08:43→21:06)
[2018-06-06] MEDS: Furosemide 20 MG Tablet 60 MG PO ×2 (08:44→17:13)
[2018-06-06] MEDS: Metoprolol(XL)Succ 25 MG Tablet 12.5 MG PO ×2 (08:44→21:06)
--- NOTE | 2018-06-06 10:03 | PCM.PN.HOSP ---
Patient Problems: Active and Suspected Problems (Last Reviewed 11/19/17 @ 16:27 by Micky Mauro MD) Atrial fibrillation with RVR (Acute) Subjective: Patient kidney function appears to have stabilized. He was seen in consultation by Dr. Haines with nephrology Objective: GENERAL: cooperative HEENT: Atraumatic; EYES; Anicteric, NECK; supple, normal thyroid, RESPIRATORY: Diminished to auscultation bilaterally, CARDIOVASCULAR: Regular S1 S2, GI: soft, non-tender, normoactive bowel sounds, : No Renal angle tenderness; EXTREMITIES: 1+ Plus bipedal pitting edema MUSCULOSKELETAL: Nonhealing wound involving the low back NEURO: Awake; no lateralizing signs. SKIN: Bilateral stasis dermatitis PSYCH; Normal affect Vitals/I&O's: Vital Signs Temp Pulse Resp BP Pulse Ox 97.7 F L 89 16 108/41 L 94 06/06/18 03:08 06/06/18 08:44 06/06/18 03:08 06/06/18 08:44 06/06/18 03:08 Oxygen Flow Rate (L/min) 2 Oxygen Delivery Method Room Air Weight: 90.9 kg Body Mass Index (BMI) 31.1 Intake and Output for Last 24 Hours 06/04/18 06/05/18 06/06/18 23:59 23:59 23:59 Intake Total 2573 / 2573 1000 / 1000 477 / 477 Output Total 500 / 500 900 / 900 850 / 850 Balance 2072 / 2072 100 / 100 -373 / -373 Laboratory Results 06/06/18 05:22: WBC 4.8, RBC 2.74 L, Hgb 9.9 L, Hct 31.3 L, MCV 114.2 H, MCH 36.1 H, MCHC 31.6 L, RDW 17.0 H, RDW Differential 68.8 H, Plt Count 397, MPV 9.4, Differential Comment SCAN 06/06/18 05:22: Sodium 137, Potassium 4.0, Chloride 98, Carbon Dioxide 28.0, Anion Gap 11, BUN 48 H, Creatinine 2.23 H, Estim Creat Clear Calc 28.12, Est GFR (MDRD) Af Amer 37 L, Est GFR (MDRD) Non-Af 31 L, BUN/Creatinine Ratio 21.5 H, Glucose 95, Calcium 8.6 Current Medications Acetaminophen (Tylenol) 500 mg PO Q8H PRN PRN PRN Reason: PAIN Last Admin: 06/05/18 21:52 Dose: 500 mg Apixaban (Eliquis) 2.5 mg PO BID [facility] Last Admin: 06/06/18 08:43 Dose: 2.5 mg Atorvastatin Calcium (Lipitor) 20 mg PO QHS [facility] Last Admin: 06/05/18 21:49 Dose: 20 mg Diltiazem HCl (Cardizem Cd) 120 mg PO DAILY [facility] Last Admin: 06/06/18 08:43 Dose: 120 mg Fentanyl (Duragesic Patch) 100 mcg TRANSDERM. Q72H [facility] Last Admin: 06/04/18 08:43 Dose: 100 mcg Ferrous Gluconate (Ferrous Gluconate) 324 mg PO BID [facility] Last Admin: 06/06/18 08:43 Dose: 324 mg Folic Acid (Folic Acid) 1 mg PO DAILY@0800 [facility] Last Admin: 06/06/18 08:42 Dose: 1 mg Furosemide (Lasix) 60 mg PO BID@1000,1800 [facility] Last Admin: 06/06/18 08:44 Dose: 60 mg Gabapentin (Neurontin) 200 mg PO DAILY@2200 [facility] Last Admin: 06/05/18 21:49 Dose: 200 mg Gabapentin (Neurontin) 100 mg PO DAILY@0800 [facility] Last Admin: 06/06/18 08:42 Dose: 100 mg Hydromorphone HCl (Dilaudid Tablet) 4 - 8 mg PO Q4H PRN PRN PRN Reason: PAIN Last Admin: 06/06/18 08:41 Dose: 4 mg Sodium Chloride () 250 mls @ 15 mls/hr IV .[id number] PRN PRN Reason: SALINE FLUSH Sodium Chloride () 500 mls @ 15 mls/hr IV .[id number] [facility] Last Admin: 06/06/18 02:48 Dose: Not Given Magnesium Hydroxide (Milk Of Magnesia) 30 ml PO DAILY PRN PRN Reason: Constipation Magnesium Oxide (Mag-Ox 400) 400 mg PO DAILY@0800 [facility] Last Admin: 06/06/18 08:42 Dose: 400 mg Melatonin (Melatonin) 10 mg PO QHS [facility] Last Admin: 06/05/18 21:49 Dose: 10 mg Metoprolol Succinate (Toprol Xl (Beta Yaquelin)) 12.5 mg PO BID [facility] Last Admin: 06/06/18 08:44 Dose: 12.5 mg Sodium Chloride () 5 - 15 ml IV UD PRN PRN Reason: SALINE FLUSH Last Admin: 06/04/18 17:06 Dose: 10 ml Medical Necessity - Tobacco Use Smoking Status: Former smoker Assessment/Plan All Active Problems (Last Reviewed 11/19/17 @ 16:27 by Micky Mauro MD) Atrial fibrillation with RVR (Acute) Chronic combined systolic and diastolic CHF (congestive heart failure) (Acute) Cellulitis (Resolved) Patient is a 73-year-old gentleman who was sent from PCPs office on account of feeling tired. He was also found to have a heart rate in the 140s EKG demonstrated A. fib with RVR admitted to the intensive care unit started on Cardizem drip consultation placed to cardiology 1. Paroxysmal atrial fibrillation with RVR patient was initially managed on Cardizem drip underwent successful DC cardioversion on 06/03/[address] Mauro. Is on systemic anticoagulation with Eliquis; patient has since remained in sinus rhythm 2. Acute systolic congestive heart failure echo obtained on 11/27/2017 demonstrated EF of 55%, repeat echo obtained on 06/03/2018 however demonstrated EF of 25% with segmental wall motion abnormalities. Patient currently on Lasix Aldactone added; Aldactone was held in view of worsening kidney function 3. Hypokalemia secondary to use of diuretics repleted per protocol 4. Chronic kidney disease stage III patient has been followed by Dr. Haines as outpatient consultation was placed to him in view of worsening creatinine following initiation of patient's diuretics 5. Acute kidney injury suspected to be secondary to contrast-induced nephropathy consultation was placed to nephrology patient has been seen by Dr. Haines. His notes and recommendations reviewed 6. Hypertension-blood pressure controlled, home medications continued with dose adjustment as needed 7. Non-Hodgkin's lymphoma currently in remission 8. History of pulmonary embolism 9. Peripheral vascular disease 10. Chronic back pain patient is on chronic opioids requested for adjustment of his Dilaudid dose back to his home dose 11. Dyslipidemia patient is on atorvastatin did continue 12. 4. Nonhealing surgical wound involving the low back following back surgery patient is seen at the wound care center consultation was placed to wound care nurse 13. DVT prophylaxis patient is on Eliquis Code Visit Inpatient E&M: 96472 Subs Hosp L2
--- NOTE | 2018-06-06 12:41 | PN.RENAL_ITS ---
Patient Problems: Active and Suspected Problems (Last Reviewed 11/19/17 @ 16:27 by Micky Mauor MD) Atrial fibrillation with RVR (Acute) Subjective: no new complaints says he is voiding more urine output has increased significantly - Physical Exam General: Alert, Oriented x3, Cooperative HEENT: Atraumatic, PERRLA, EOMI, Normocephalic Neck: Supple, No JVD, Negative Carotid Bruits Lungs: Clear to auscultation, Normal air movement Cardiovascular: Regular rate, No murmurs Abdomen: Bowel Sounds Present, Soft, Non Tender Extremities: No edema, Capillary Refill Less than 3 Seconds Skin: No rashes, No breakdown Musculoskeletal: No Tenderness to Palpation of Joints or Extremities Neurological: Cranial nerves II-XII grossly intact Psych/Mental Status: Normal Affect, Appropriate Vital Signs Temp Pulse Resp BP Pulse Ox 98.1 F 89 16 125/58 H 92 06/06/18 11:46 06/06/18 11:46 06/06/18 11:46 06/06/18 11:46 06/06/18 11:46 Oxygen Flow Rate (L/min) 2 Oxygen Delivery Method Room Air Weight: 90.9 kg Body Mass Index (BMI) 31.1 Intake and Output for Last 24 Hours 06/04/18 06/05/18 06/06/18 23:59 23:59 23:59 Intake Total 2573 / 2573 1000 / 1000 777 / 777 Output Total 500 / 500 900 / 900 2350 / 2350 Balance 2073 / 2073 100 / 100 -1573 / -1573 Laboratory Tests Past 24 Hrs 06/06/18 06/06/18 05:22 05:22 WBC 4.8 RBC 2.74 L Hgb 9.9 L Hct 31.3 L MCV 114.2 H MCH 36.1 H MCHC 31.6 L RDW 17.0 H RDW Differential 68.8 H Plt Count 397 MPV 9.4 Differential Comment SCAN Sodium 137 Potassium 4.0 Chloride 98 Carbon Dioxide 28.0 Anion Gap 11 BUN 48 H Creatinine 2.23 H Estim Creat Clear Calc 28.12 Est GFR (MDRD) Af Amer 37 L Est GFR (MDRD) Non-Af 31 L BUN/Creatinine Ratio 21.5 H Glucose 95 Calcium 8.6 Medical Necessity - Tobacco Use Smoking Status: Former smoker Assessment/Plan All Active Problems (Last Reviewed 11/19/17 @ 16:27 by Micky Mauro MD) Atrial fibrillation with RVR (Acute) Chronic combined systolic and diastolic CHF (congestive heart failure) (Acute) Cellulitis (Resolved) BRIANA CKD stage 3. CKD stage 3 with prior baseline creatinine around 1.1 to 1.2. BRIANA this hospitalization. did received CT with contrast on 06/02 and cr started rising within next 48 hours. likely LILIBETH does not have any obstructive symptoms. Cr is about the same as yesterday. Likely peak. hopefully will recover going forward if cr stable or better tomorrow, can be discharged from renal standpoint CHF. EF was ok in November now down significantly. likely related to AFlutter as per cardio. s/p cardioversion. continue lasix 60 mg BID for now. when ready for dc add KCL 20 meq daily. current weight is about 20 lbs above baseline weight. I asked him to cut back on lasix to once a day once weight is close to baseline. anemia. gets KACEY as outpatient. continue oral Iron back infection. follows with wound centre here in [place]. used to follow with [facility] but now planning to go to [facility]. already has an appt scheduled in our office 06/30/18.
--- NOTE | 2018-06-06 13:36 | CHAPLAIN ---
Type of Pastoral Visit _x__ Initial Visit ___ Follow-up Visit ___ On-call Visit ___ General Patient Visit ___ Spiritual Assessment ___ Family Conference ___ Bereavement ___ Rapid Response ___ Code Blue ___ Other (describe below) Pastoral Care Referral From _x__ Patient ___ Family ___ Nurse ___ Physician ___ Mis Director ___ Supervisor Taping ___ Other (describe below) Sacrament/Intervention _x__ Active listening ___ Anointing ___ Christian ___ Bereavement ___ Communion ___ Cindy exploration ___ ___ Life review ___ Prayer ___ Reconciliation ___ Sacrament of Sick ___ Supportive presence ___ Wedding ___ Other (describe below) Pastoral Comments
[2018-06-06] MEDS: Gabapentin 100 MG Capsule 200 MG PO (21:05)
[2018-06-06] MEDS: Atorvastatin Calcium 20 MG Tablet PO (21:06)
[2018-06-06] MEDS: MELATONIN 10 MG TABLET PO (21:06)
[2018-06-07 03:02] VITALS: PULSE 89
[2018-06-07 03:04] VITALS: BP 105/52; PULSE 78; RESP 18; TEMP 36.8; O2SAT 95
[2018-06-07] MEDS: HYDROmorphone 2 MG TABLET PO ×2 (03:25→08:21)
[2018-06-07 07:00] VITALS: PULSE 79
[2018-06-07 07:16] LABS: Anion Gap 13 (5-15); BUN 43 mg/dL (7-18); BUN/Creat Ratio 22.5 RATIO (10-20); Calcium,Total 8.4 mg/dL (8.5-10.1); Chloride 98 mmol/L (98-107); Creatinine, Serum 1.91 mg/dL (0.70-1.30); EST Glomerular Filtration Rate 37 mL/min (>60); Est Glom Filt Rate - Afr Amer 45 mL/min (>60); Estimated Creatinine Clearance 32.83 ml/min; Glucose 98 mg/dL (74-106); Potassium 3.6 mmol/L (3.5-5.1); Sodium Level 138 mmol/L (136-145)
[2018-06-07] MEDS: Gabapentin 100 MG Capsule PO (08:23)
[2018-06-07] MEDS: Magnesium Oxide 400 MG Tablet PO (08:23)
[2018-06-07] MEDS: Folic Acid 1 MG Tablet PO ×2 (08:23→09:27)
--- NOTE | 2018-06-07 08:48 | DS.PCM_ITS ---
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) Open wound of lower back (Chronic) Osteomyelitis of lumbar spine (Chronic) 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) History of non-Hodgkin's lymphoma (Chronic) Ascending aorta dilatation (Chronic) Aortic root dilatation (Chronic) PSVT (paroxysmal supraventricular tachycardia) (Chronic) Cardiomyopathy, dilated (Chronic) Paroxysmal atrial fibrillation (Chronic) Pleural effusion (Chronic) Pericardial effusion (Chronic) Pulmonary embolism (Chronic) Chronic kidney disease (Chronic) Non-Hodgkin lymphoma (Chronic) Hyperlipidemia (Chronic) Hypertension (Chronic) Peripheral vascular disease (Chronic) Hospital Course and Treatment Imaging Results: Clinical Impression(s) from Imaging Studies Chest CTA 06/02/18 15:49 IMPRESSION: 1. No evidence of pulmonary embolism or aortic dissection. No evidence of acute pulmonary process. 2. Right peripheral abdominal ascites surrounding the liver margin. Electronically Signed: Ricky Moran DO at 20:25 EST , Service support , Consultations 06/03/18 09:32 Consult: Onc/Wound/business reporting developer Routine Comment: non healing back wound, seen at wound center Reason for Consult:: non healing back wound, seen at wound center Operations: None Summary of Care Provided: Patient is a 73-year-old gentleman who was sent from PCPs office on account of feeling tired. He was also found to have a heart rate in the 140s EKG demonstrated A. fib with RVR admitted to the intensive care unit started on Cardizem drip consultation placed to cardiology 1. Paroxysmal atrial fibrillation with RVR patient was initially managed on Cardizem drip underwent successful DC cardioversion on 06/03/[address] Mauro. Is on systemic anticoagulation with Eliquis; patient has since remained in sinus rhythm 2. Acute systolic congestive heart failure echo obtained on 11/27/2017 demonstrated EF of 55%, repeat echo obtained on 06/03/2018 however demonstrated EF of 25% with segmental wall motion abnormalities. Patient currently on Lasix Aldactone added; Aldactone was held in view of worsening kidney function, Discharged home on lasix 60mg daily 3. Hypokalemia secondary to use of diuretics repleted per protocol 4. Chronic kidney disease stage III patient has been followed by Dr. Haines as outpatient consultation was placed to him in view of worsening creatinine 5. Acute kidney injury suspected to be secondary to contrast-induced nephropathy consultation was placed to nephrology patient has been seen by Dr. Haines. His notes and recommendations reviewed kidney function was improving at the time of discharge plan is for patient to follow-up with his PCP Dr. Lawson on 06/09/2018 for repeat BMP 6. Hypertension-blood pressure controlled, home medications continued with dose adjustment as needed 7. Non-Hodgkin's lymphoma currently in remission 8. History of pulmonary embolism; on Eliquis 9. Peripheral vascular disease 10. Chronic back pain patient is on chronic opioids requested for adjustment of his Dilaudid dose back to his home dose 11. Dyslipidemia patient is on atorvastatin did continue 12. Nonhealing surgical wound involving the low back following back surgery patient is seen at the wound care center consultation was placed to wound care nurse 13. DVT prophylaxis patient is on Eliquis Patient Problems: Active and Suspected Problems (Last Reviewed 11/19/17 @ 16:27 by Micky Mauro MD) Atrial fibrillation with RVR (Acute) - Physical Exam General: Cooperative HEENT: Atraumatic Lungs: Diminished Cardiovascular: Regular rate, Regular Rhythm Musculoskeletal: No Muscle Wasting Neurological: Neuro grossly intact Psych/Mental Status: Normal Affect Vital Signs Temp Pulse Resp BP Pulse Ox 98.3 F 78 18 105/52 L 95 06/07/18 03:04 06/07/18 03:04 06/07/18 03:04 06/07/18 03:04 06/07/18 03:04 Oxygen Flow Rate (L/min) 2 Oxygen Delivery Method Room Air Weight: 89.7 kg Body Mass Index (BMI) 31.1 Intake and Output for Last 24 Hours 06/05/18 06/06/18 06/07/18 23:59 23:59 23:59 Intake Total 1000 / 1000 1617 / 1617 Output Total 900 / 900 4675 / 4675 Balance 100 / 100 -3058 / -3058 Laboratory Tests Past 24 Hrs 06/07/18 06:01 Sodium 138 Potassium 3.6 Chloride 98 Carbon Dioxide 27.0 Anion Gap 13 BUN 43 H Creatinine 1.91 H Estim Creat Clear Calc 32.83 Est GFR (MDRD) Af Amer 45 L Est GFR (MDRD) Non-Af 37 L BUN/Creatinine Ratio 22.5 H Glucose 98 Calcium 8.4 L Discharge Diet: Low fat/ Low Cholesterol Discharge Activity: Return to Normal Activity, May not drive while taking narcotic pain medications. Home Medications: Medications to take at Discharge Folic Acid 1 mg PO DAILY@0800 02/05/16 Magnesium Oxide [Magnesium] 400 mg PO DAILY@0800 02/05/16 Gabapentin [Neurontin] 100 mg PO DAILY 07/04/17 Vit C/E/Zn/Coppr/Lutein/Zeaxan [Preservision Areds 2 Softgel] 1 ea PO BID 07/04/17 apixaban 5 mg tablet 2.5 mg PO BID tab 08/27/17 ferrous fumarate 325 mg (106 mg iron) tablet 325 mg PO BID tab 08/27/17 atorvastatin 20 mg tablet 20 mg PO QHS #90 tab 09/04/17 Acetaminophen [Tylenol Arthritis] 1,300 mg PO PRN PRN 06/02/18 Gabapentin [Neurontin] 200 mg PO DAILY 06/02/18 Hydromorphone HCl 4 - 8 mg PO Q4H PRN PRN 06/02/18 Melatonin 10 mg PO QHS 06/02/18 Metoprolol Succinate [Toprol Xl] 12.5 mg PO BID 06/02/18 fentaNYL patch [Duragesic Patch] 100 mcg TRANSDERM. Q72H 06/02/18 Furosemide [Lasix] 60 mg PO DAILY #90 tablet 06/07/18 Following Prescrptions Were Given to Patient: Furosemide [Lasix] 60 mg PO DAILY #90 tablet Primary Care Physician: Bernardo Lawson DO [Primary Care Provider] - Please follow up with your Primary Care Physician in: on 06/09/18 for bmp check Disposition: Home Minutes spent on discharge:: 35 Patient Condition:: Stable Medical Necessity - Tobacco Use Smoking Status: Former smoker Meaningful Use Info Meaningful Use Diagnoses (Choose all that apply): CHF - CHF MABEL/ARB ordered at discharge?: No Reason MABEL/ARB not ordered?: Worsening renal disease Documented LVEF (%): 25 Code Visit Inpatient E&M: 22778 Disch Hosp
--- NOTE | 2018-06-07 08:48 | DCINST_ITS ---
- Discharge Diagnoses Current Active Problems: Current Active and Chronic Problems (Last Reviewed 11/19/17 @ 16:27 by Micky Mauro MD) Atrial fibrillation with RVR (Acute) You will use the following diet at home:: Cardiac Discharge Activity: Return to Normal Activity, May not drive while taking narcotic pain medications. Allergies/Adverse Reactions: Allergies chlorthalidone Allergy (Verified 05/05/18 11:13) Unknown ramipril [From Altace] Allergy (Verified 05/05/18 11:13) Unknown sulfamethoxazole [From Bactrim] Allergy (Verified 05/05/18 11:13) Other trazodone Allergy (Verified 05/05/18 11:13) Unknown trimethoprim [From Bactrim] Allergy (Verified 05/05/18 11:13) Other prednisone Adverse Reaction (Verified 05/05/18 11:13) Swelling Medications to take at Discharge Folic Acid 1 mg PO DAILY@0800 02/05/16 Magnesium Oxide [Magnesium] 400 mg PO DAILY@0800 02/05/16 Gabapentin [Neurontin] 100 mg PO DAILY 07/04/17 Vit C/E/Zn/Coppr/Lutein/Zeaxan [Preservision Areds 2 Softgel] 1 ea PO BID 07/04/17 apixaban 5 mg tablet 2.5 mg PO BID tab 08/27/17 ferrous fumarate 325 mg (106 mg iron) tablet 325 mg PO BID tab 08/27/17 atorvastatin 20 mg tablet 20 mg PO QHS #90 tab 09/04/17 Acetaminophen [Tylenol Arthritis] 1,300 mg PO PRN PRN 06/02/18 Gabapentin [Neurontin] 200 mg PO DAILY 06/02/18 Hydromorphone HCl 4 - 8 mg PO Q4H PRN PRN 06/02/18 Melatonin 10 mg PO QHS 06/02/18 Metoprolol Succinate [Toprol Xl] 12.5 mg PO BID 06/02/18 fentaNYL patch [Duragesic Patch] 100 mcg TRANSDERM. Q72H 06/02/18 Furosemide [Lasix] 60 mg PO DAILY #90 tablet 06/07/18 The following prescriptions were given: Furosemide [Lasix] 60 mg PO DAILY #90 tablet Primary Care Physician: Bernardo Lawson DO [Primary Care Provider] - Please follow up with your Primary Care Physician in: on 06/09/18 for bmp check Test Results: Test results from this visit will be discussed in further detail at your follow- up appointment, if applicable. Proposed Discharge Date: 06/07/18
[2018-06-07 09:24] VITALS: BP 130/73; PULSE 80; RESP 16; TEMP 37; O2SAT 100
[2018-06-07 09:26] VITALS: PULSE 80
[2018-06-07] MEDS: Metoprolol(XL)Succ 25 MG Tablet 12.5 MG PO (09:26)
[2018-06-07] MEDS: dilTIAZem CD 120 MG Capsule PO (09:27)
[2018-06-07] MEDS: Furosemide 20 MG Tablet 60 MG PO (09:27)
[2018-06-07] MEDS: Ferrous Gluconate 324 MG Tablet PO (09:28)
[2018-06-07] MEDS: APIXABAN 2.5 MG TABLET PO (09:28)
[2018-06-07] MEDS: Acetaminophen 500 MG Tablet PO (09:34)
[2018-06-07 11:00] VITALS: PULSE 73
--- NOTE | 2018-06-09 15:45 | CASEMGMT ---
RN [place] DC PHONE CALL DC DATE: 06/07/18 DC DISPOSITION: Home LACE/STRATA:04/08 Intro role of CM to patient via phone. Reviewed Instructions, prescriptions and f/u. No questions. Pt states he made f/u appointment with his PCP for next week. Pt states is feeling better, no care improvement suggestions given. Pattie CLINTONN RN AC
== END 2018-06-07 12:41 | disposition home or self-care (01) | DRG 264 ==
LOC: ED 16:58 → ICU 21:55 → PCU 06-04 08:11
PROVIDERS: Admitting Provider Family Medicine; Emergency Provider Emergency Medicine; Family Provider Family Medicine; PCP Family Medicine; Visit Provider Internal Medicine
DX: I48.0 Paroxysmal atrial fibrillation (principal); I50.21 Acute systolic (congestive) heart failure; C85.90 Non-Hodgkin lymphoma, unspecified, unspecified site; I13.0 Hypertensive heart and chronic kidney disease with heart failure and stage 1 through stage 4 chronic kidney disease, or unspecified chronic kidney disease; N17.9 Acute kidney failure, unspecified; T81.30XA Disruption of wound, unspecified, initial encounter; L03.312 Cellulitis of back [any part except buttock and flank]; I42.0 Dilated cardiomyopathy; E78.5 Hyperlipidemia, unspecified; J44.9 Chronic obstructive pulmonary disease, unspecified; G47.33 Obstructive sleep apnea (adult) (pediatric); I73.9 Peripheral vascular disease, unspecified; T81.89XA Other complications of procedures, not elsewhere classified, initial encounter; N18.3 Chronic kidney disease, stage 3 (moderate); D64.9 Anemia, unspecified; I27.21 Secondary pulmonary arterial hypertension; Z79.01 Long term (current) use of anticoagulants; T50.8X5A Adverse effect of diagnostic agents, initial encounter; Z87.891 Personal history of nicotine dependence; Z79.899 Other long term (current) drug therapy; Z86.711 Personal history of pulmonary embolism; G89.29 Other chronic pain; M54.9 Dorsalgia, unspecified; Y83.8 Other surgical procedures as the cause of abnormal reaction of the patient, or of later complication, without mention of misadventure at the time of the procedure; I87.2 Venous insufficiency (chronic) (peripheral); B99.8 Other infectious disease
CPT/HCPCS: 11042; 11045; 36415; 71275; 80048; 83735; 83880; 84484; 85014; 85018; 85025; 85027; 93005; 93306; 93971; 96372; 97802; 99285; J0885; J7040; Q9957; Q9967; A4216; C8929; J1940

== ENCOUNTER → 2018-06-11 11:35 | Outpatient (CLI) | payer MEDICARE, OTHER, SELFPAY ==
[2015-10-31 10:00] VITALS: BMI 34.9
[2018-06-11 11:35] VITALS: BMI 31.1
[2018-06-11 16:03] LABS: Anion Gap 12 (5-15); BUN 33 mg/dL (7-18); BUN/Creat Ratio 19.5 RATIO (10-20); Calcium,Total 8.8 mg/dL (8.5-10.1); Chloride 94 mmol/L (98-107); Creatinine, Serum 1.69 mg/dL (0.70-1.30); EST Glomerular Filtration Rate 42 mL/min (>60); Est Glom Filt Rate - Afr Amer 51 mL/min (>60); Glucose 91 mg/dL (74-106); Potassium 4.1 mmol/L (3.5-5.1); Sodium Level 135 mmol/L (136-145)
== END ==
PROVIDERS: Family Provider Family Medicine; PCP Family Medicine; Visit Provider Family Medicine
DX: N17.9 Acute kidney failure, unspecified (principal)
CPT/HCPCS: 36415; 80048

== ENCOUNTER 2018-06-16 13:57 | Inpatient (IN) | payer MEDICARE, OTHER, SELFPAY ==
[2015-10-31 10:00] VITALS: BMI 34.9
[2018-06-13 12:39] VITALS: BMI 31.1
[2018-06-16] VITALS (14 sets, daily range): BP systolic 110–148; BP diastolic 60–98; PULSE 84–95; RESP 18–21; TEMP 36.5–37.2; O2SAT 83–96; BMI 28.8; BMI 28.5; BMI 28.6
--- NOTE | 2018-06-16 14:48 | EKG12_ITS ---
Test Reason : SOB Blood Pressure : / mmHG Vent. Rate : 087 BPM Atrial Rate : 087 BPM P-R Int : 204 ms QRS Dur : 146 ms QT Int : 420 ms P-R-T Axes : 009 -63 006 degrees QTc Int : 505 ms Normal sinus rhythm Right bundle branch block Left anterior fascicular block Bifascicular block Abnormal ECG Confirmed by SHAYLA HAYES, ANGEL ([id number]), production editor MENDEZ OSPINA ([id number]) on 06/20/2018 8:49:28 AM Referred By: Charisse Couch Confirmed By:ANGEL MCGUIRE MD
--- NOTE | 2018-06-16 14:48 | RAD_ITS ---
STUDY: X-RAY CHEST REASON FOR EXAM: Male, 73 years old. Shortness of breath/dyspnea. TECHNIQUE: AP and lateral views of the chest. COMPARISON: Comparison is made with prior study dated June 21, 2017. FINDINGS: EKG electrodes are seen. Mild increased markings at the right lung base. This most likely represents atelectasis. There is no demonstrated pleural abnormality. There is mild cardiac enlargement. Normal mediastinum and raquel. Normal visualized pulmonary arteries. There is atherosclerotic calcification of the aortic arch with tortuosity. There are diffuse degenerative changes of the visualized thoracic spine. Normal visualized ribs, clavicles, and shoulders. There is no demonstrated abnormality of the visualized soft tissue structures of the upper abdomen. RAD/Chest PA and Lateral IMPRESSION: Mild degree of increased markings at the right lung base just above atelectasis. Electronically Signed: Shen Echeverria MD at 16:04 EST , Service support ,
--- NOTE | 2018-06-16 15:15 | CPS ---
Pt refused aerosol treatment but did allow AURIST to do the ekg. Dr. Darling notified.
--- NOTE | 2018-06-16 15:25 | ED.VISSUMM ---
- ER Visit Summary Date of Service: 06/16/18 Chief Complaint: Shortness of breath History of Present Illness: The patient is a 73 M who presents with shortness of breath that has been getting worse over the past 9 days. Patient states his breathing is worse with any exertion. Patient states his breathing improves with oxygen. Patient admits to a cough but denies any sputum. Patient states that is a moist cough and he feels like he needs to cough up something but is unable to produce any sputum. Patient admits to some rhinorrhea. Patient states he has had some intermittent tightness in his chest. Patient states she was recently admitted for atrial fibrillation and was cardioverted. Physical Examination: Vital signs are stable except for pulse oximeter 95% on 3 L nasal cannula. Patient is afebrile. Patient is in no acute distress. Oral mucosa is pink and moist. Neck is supple. Trachea is midline. There is no JVD noted. Heart was regular rate and rhythm. Lungs showed diffuse expiratory wheezing. Abdomen is soft nontender. Cranial nerves II through XII are intact. There are no focal motor or sensory deficits noted. The remaining physical exam is within normal limits. Test Results: EKG showed normal sinus rhythm with a rate of 87. There is a right bundle branch block and a left anterior fascicular block. There are no acute ST or T wave changes. This was unchanged compared to previous EKG. CBC was normal. Creatinine was slightly elevated at 1.4. This was improved compared to previous result. Troponin and BNP are pending. Chest x-ray shows right basilar atelectasis. There is no acute infiltrate. Lactate was elevated at 2.6. Emergency Department Course and Treatment: Patient refused a DuoNeb aerosol here. Patient was started on Levaquin 750 mg IV. Case was discussed with Dr. Couch. He recommended obtaining a BNP and troponin. Patient will likely be admitted for hypoxia. Disposition: Admit to hospital Impression: 1. Hypoxia This note was generated with [employer] dictation software. It may contain incorrect words, spelling, and punctuation that were not noted in review of the chart prior to signing ED Disposition - Plan for ED Patient: Disposition: Acute Care Hospital [facility] Diagnosis: Hypoxia Referrals: Bernardo Lawson DO [Primary Care Provider] -
--- NOTE | 2018-06-16 15:31 | ED.DCSUM_ITS ---
- ER Visit Summary Date of Service: 06/16/18 Chief Complaint: Shortness of breath History of Present Illness: The patient is a 73 M who presents with shortness of breath that has been getting worse over the past 9 days. Patient states his breathing is worse with any exertion. Patient states his breathing improves with oxygen. Patient admits to a cough but denies any sputum. Patient states that is a moist cough and he feels like he needs to cough up something but is unable to produce any sputum. Patient admits to some rhinorrhea. Patient states he has had some intermittent tightness in his chest. Patient states she was recently admitted for atrial fibrillation and was cardioverted. Physical Examination: Vital signs are stable except for pulse oximeter 95% on 3 L nasal cannula. Patient is afebrile. Patient is in no acute distress. Oral mucosa is pink and moist. Neck is supple. Trachea is midline. There is no JVD noted. Heart was regular rate and rhythm. Lungs showed diffuse expiratory wheezing. Abdomen is soft nontender. Cranial nerves II through XII are intact. There are no focal motor or sensory deficits noted. The remaining physical exam is within normal limits. Test Results: EKG showed normal sinus rhythm with a rate of 87. There is a right bundle branch block and a left anterior fascicular block. There are no acute ST or T wave changes. This was unchanged compared to previous EKG. CBC was normal. Creatinine was slightly elevated at 1.4. This was improved compared to previous result. Troponin and BNP are pending. Chest x-ray shows right basilar atelectasis. There is no acute infiltrate. Lactate was elevated at 2.6. Emergency Department Course and Treatment: Patient refused a DuoNeb aerosol here. Patient was started on Levaquin 750 mg IV. Case was discussed with Dr. Couch. He recommended obtaining a BNP and troponin. Patient will likely be admitted for hypoxia. Disposition: Admit to hospital Impression: 1. Hypoxia This note was generated with [email or web address] dictation software. It may contain incorrect words, spelling, and punctuation that were not noted in review of the chart prior to signing ED Disposition - Plan for ED Patient: Disposition: Acute Care Hospital [facility] Diagnosis: Hypoxia Referrals: Bernardo Lawson DO [Primary Care Provider] -
[2018-06-16 15:38] LABS: Absolute Lymphocyte Count 1.08 X10^3/ul (0.83-4.51); Absolute Neutrophil Count 4.2 X10^3/uL (2.0-7.7); Basophil# 0.09 X10^3/uL; Basophil% 1.4 % (0-1); Eosinophil# 0.05 X10^3/uL; Eosinophils% 0.8 % (0-5); Hematocrit 34.2 % (40-54); Hemoglobin 10.4 g/dl (13.0-16.5); Lymphocyte # 1.08 X10^3/ul (4.0); Lymphocyte % 16.3 % (19-41); Mean Corp Hgb Conc 30.4 g/gl (32-36); Mean Corpuscular Hgb 33.7 pg (27.0-32.0); Mean Corpuscular Volume 110.7 fL (80-94); Mean Platelet Vol. 9.3 fl (6.2-12.0); Monocyte# 1.16 X10^3/uL; Monocyte% 17.5 % (0-10); Neutrophil # 4.24 X10^3/uL (2.7-7.7); Neutrophil % 63.8 % (47-70); Platelet Count 408 K/mm3 (150-450); RBC Distribution Width CV 16.9 % (11.6-14.6); RBC Distribution Width SD 67.4 fl (35.1-43.9); Red Blood Count 3.09 M/mm3 (4.6-6.2); White Blood Count 6.6 K/mm3 (4.4-11.0)
[2018-06-16 15:39] LABS: Differential Indicated SCAN CRITERIA MET; POSITIVE COUNT NO; POSITIVE DIFFERENTIAL NO; POSITIVE MORPHOLOGY YES
[2018-06-16 15:49] LABS: Anion Gap 11 (5-15); BUN 31 mg/dL (7-18); BUN/Creat Ratio 22.1 RATIO (10-20); Calcium,Total 8.5 mg/dL (8.5-10.1); Chloride 97 mmol/L (98-107); EST Glomerular Filtration Rate 53 mL/min (>60); Est Glom Filt Rate - Afr Amer 64 mL/min (>60); Estimated Creatinine Clearance 44.79 ml/min; Glucose 86 mg/dL (74-106); Potassium 4.2 mmol/L (3.5-5.1); Sodium Level 137 mmol/L (136-145)
--- NOTE | 2018-06-16 15:57 | ED.RN ---
LAB RESULTED LACTIC ACID 2.6, PHYSICIAN NOTIFIED
[2018-06-16 15:59] LABS: Lactic Acid 2.6 mmol/L (0.4-2.0)
[2018-06-16 16:15] LABS: Differential Comment SCANNED
[2018-06-16] MEDS: levoFLOXacin IV 750 MG/150 ML BAG 100 MG IV (16:53)
--- NOTE | 2018-06-16 17:08 | ED.RN ---
PT REFUSING 2ND IV SITE AND CT. DR MARIE NOTIFIED
[2018-06-16 17:38] LABS: BNP,B-Type NATRIURETIC PEPTIDE 306.7 pg/mL (0-100)
--- NOTE | 2018-06-16 17:44 | ED.RN ---
CALLED LAB TO COME REDRAW PT'S BLOOD.
--- NOTE | 2018-06-16 18:14 | PCM.HP.STD ---
Problem List (1) Secondary pulmonary arterial hypertension Status: Chronic (2) Open wound of lower back Status: Chronic (3) Osteomyelitis of lumbar spine Status: Chronic (4) History of non-Hodgkin's lymphoma Status: Chronic (5) Cardiomyopathy, dilated Status: Chronic (6) Paroxysmal atrial fibrillation Status: Chronic (7) Chronic kidney disease Status: Chronic Qualifiers: (8) Hyperlipidemia Status: Chronic Qualifiers: (9) Hypertension Status: Chronic Qualifiers: (10) Peripheral vascular disease Status: Chronic History of Present Illness Date of Admission: 06/16/18 Chief Complaint: Shortness of breath. The patient is a 73 year old M with multiple medical comorbidities as mentioned above presented to the emergency room because of shortness of breath. Symptoms started around 3-4 days ago with shortness of breath mainly on minimal to moderate exertion, exaggerated by more activities, relieved by rest, associated with productive cough with minimal sputum as well as nasal congestion. He denied fever or chills. He denied orthopnea, PND or increasing bilateral leg edema. He does have chronic bilateral leg edema. Patient thinks that he caught up a viral syndrome when he was in the hospital 10 days ago for A. fib with RVR. He denied chest pain, dizziness or lightheadedness. In the emergency room, he was afebrile, heart rate was stable, blood pressure stable, pulse ox was 83% on room air, improved to 95% on 3 L. Patient never been oxygen at home. His routine blood work was remarkable for chronic anemia with stable hemoglobin, creatinine of 1.40 which is chronic as well. His lactic acid was 2.6. Troponin was negative. EKG revealed sinus rhythm with right bundle branch block, no acute ischemic changes. Chest x-ray showed no acute infiltrate, consolidation or effusion. He is being admitted for probable COPD exacerbation with hypoxia which is likely triggered by viral URTI. 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21 Ascending aorta dilatation (Chronic) I77.810 Aortic root dilatation (Chronic) I77.810 PSVT (paroxysmal supraventricular tachycardia) (Chronic) I47.1 Cardiomyopathy, dilated (Chronic) I42.0 Paroxysmal atrial fibrillation (Chronic) I48.0 Pericardial effusion (Chronic) I31.3 Pulmonary embolism (Chronic) I26.99 Chronic kidney disease (Chronic) N18.9 Non-Hodgkin lymphoma (Chronic) C85.90 Hyperlipidemia (Chronic) E78.5 Hypertension (Chronic) I10 Peripheral vascular disease (Chronic) I73.9 Ascites R18.8 Edema of lower extremity R60.0 Gout M10.9 Hepatic cirrhosis K74.60 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 for treatment of lymphoma Open wound of lower back S31.000A with muscle and bone exposed s/p surgical debridement of abscess s/p lumbar spine surgery Chronic ulcer of right leg with fat layer exposed L97.912 History of DVT (deep vein thrombosis) Z86.718 History of diverticulitis Z87.19 Lumbar disc disease M51.9 Lymphedema I89.0 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 of necrosis L98.496 nonhealing ulcer lumbar back area MARY JANE (obstructive sleep apnea) G47.33 Osteomyelitis M86.9 Allergies chlorthalidone Allergy (Verified 06/16/18 13:58) Unknown ramipril [From Altace] Allergy (Verified 06/16/18 13:58) Unknown sulfamethoxazole [From Bactrim] Allergy (Verified 06/16/18 13:58) Other trazodone Allergy (Verified 06/16/18 13:58) Unknown trimethoprim [From Bactrim] Allergy (Verified 06/16/18 13:58) Other prednisone Adverse Reaction (Verified 06/16/18 13:58) Swelling Home Medications: Ambulatory Orders Medication Instructions Recorded Folic Acid 1 mg PO DAILY@0800 02/05/16 Magnesium Oxide [Magnesium] 400 mg PO DAILY@0800 02/05/16 Gabapentin [Neurontin] 100 mg PO DAILY 07/04/17 Vit C/E/Zn/Coppr/Lutein/Zeaxan 1 ea PO BID 07/04/17 [Preservision Areds 2 Softgel] apixaban 5 mg tablet 2.5 mg PO BID tab 08/27/17 ferrous fumarate 325 mg (106 mg 325 mg PO BID tab 08/27/17 iron) tablet atorvastatin 20 mg tablet 20 mg PO QHS #90 tab 09/04/17 Acetaminophen [Tylenol Arthritis] 1,300 mg PO PRN PRN 06/02/18 Gabapentin [Neurontin] 200 mg PO DAILY 06/02/18 Hydromorphone HCl 8 mg PO Q4H PRN PRN 06/02/18 Melatonin 10 mg PO QHS 06/02/18 Metoprolol Succinate [Toprol Xl] 12.5 mg PO BID 06/02/18 fentaNYL patch [Duragesic Patch] 100 mcg TRANSDERM. Q72H 06/02/18 Potassium Chloride [K-Dur] 20 meq PO DAILY #30 tablet 06/07/18 Doxycycline Monohydrate 100 mg PO BID 06/16/18 Furosemide [Lasix] 20 mg PO TID 06/16/18 Surgical History: Surgical History (Last Reviewed 11/19/17 @ 16:27 by Micky Mauro MD) History of laminectomy Z98.890 History of splenectomy Z90.81 Surgical History: colectomy - Partial., - - Splenectomy, Ileostomy reversal, L4-5 discectomy. Wound debridement 03/04/2017, 05/14/2017 at [facility]> Psychiatric History: No pertinent psych hx Lives: Spouse/ Significant Other Smoking Status: Former smoker - *Family History Maternal Family History: Family History (Last Reviewed 11/19/17 @ 16:27 by Micky Mauro MD) Father Diabetes Heart disease Mother Heart disease History Items: Heart Disease Paternal Family History: Family History (Last Reviewed 11/19/17 @ 16:27 by Micky Mauro MD) Father Diabetes Heart disease Mother Heart disease History Items: Diabetes Review of Systems Constitutional: Reports: Weakness. Denies: Anorexia, Chills, Fever Eyes: Denies: Blurred vision, Double vision, Drainage, Redness HEENT: Denies: Difficulty Hearing, Ear Pain, Eye Pain, Nasal Congestion, Sore Throat Cardiovascular: Denies: Chest Pain, Claudication, Chest Tightness, Heaviness, Palpitations, Syncope Respiratory: Reports: Cough, Shortness of Breath, Shortness of breath upon exertion, Sputum production, Wheezing Gastrointestinal: Denies: Abdominal Pain, Constipation, Diarrhea, Nausea, Vomiting Genitourinary: Denies: Dysuria, Frequency, Hematuria Musculoskeletal: Denies: Arm Pain, Back Pain, Foot Pain Skin: Denies: Dryness, Rash Neurological: Denies: Balance problems, Double vision, Change in Speech, Slurred speech, Confusion, Headaches, Incoordination Psychiatric: Denies: Anxiety, Depression Endocrine: Denies: Change in Body Habitus, Polydipsia VTE Information - Inpt Only VTE Present on Admission: No VTE Mechan Device Prophylaxis: None VTE Pharm Prophylaxis ordered?: No - Physical Exam General: Alert, Oriented x3, Cooperative, - - Minimally short of breath. HEENT: Atraumatic, PERRLA, EOMI Oral: Moist Mucosa, No Gingival or Mucosal Lesions/ Ulcerations Neck: Supple, No JVD, Negative Carotid Bruits, Trachea Midline, Thyroid Normal Size and Texture Lungs: No rales, Diminished, Rhonchi, Short of Breath, Wheezes, - - Decreased breath sounds bilateral, bilateral expiratory wheezes, rhonchi. Cardiovascular: Regular rate, Regular Rhythm, Normal S1, Normal S2, PMI Normal Abdomen: Bowel Sounds Present, Soft, Non Tender, Non-Distended, No Hepato-splenomegaly Extremities: No clubbing, No cyanosis, Edema Skin: No rashes, Ulcer/ Wound Lymphatic: No Cervical, Supraclavicular, or Inguinal Adenopathy Neurological: Cranial nerves II-XII grossly intact, Motor Exam 5/5 strength throughout Psych/Mental Status: Normal Affect, Appropriate, Alert and oriented to time, place, person, mood and affect Vital Signs Temp Pulse Resp BP Pulse Ox 98.9 F 95 20 H 122/60 H 94 06/16/18 16:54 06/16/18 16:54 06/16/18 16:54 06/16/18 16:54 06/16/18 16:54 Oxygen Flow Rate (L/min) 3 Oxygen Delivery Method Nasal Cannula Weight: 189 lb 3.2 oz Body Mass Index (BMI) 28.8 Laboratory Tests Past 24 Hrs 06/16/18 06/16/18 06/16/18 15:15 15:15 15:15 WBC RBC Hgb Hct MCV MCH MCHC RDW RDW Differential Plt Count MPV Immature Gran % (Auto) Neut % (Auto) Lymph % (Auto) [place]ill % (Auto) Eos % (Auto) Baso % (Auto) Absolute Neuts (auto) Absolute Lymphs (auto) Total Counted Differential Comment PT Cancelled INR Cancelled APTT Cancelled Sodium Potassium Chloride Carbon Dioxide Anion Gap BUN Creatinine Estim Creat Clear Calc Est GFR (MDRD) Af Amer Est GFR (MDRD) Non-Af BUN/Creatinine Ratio Glucose Lactic Acid Calcium Troponin I 0.024 B-Natriuretic Peptide 306.7 H 06/16/18 06/16/18 06/16/18 15:19 15:19 15:19 WBC 6.6 RBC 3.09 L Hgb 10.4 L Hct 34.2 L MCV 110.7 H MCH 33.7 H MCHC 30.4 L RDW 16.9 H RDW Differential 67.4 H Plt Count 408 MPV 9.3 Immature Gran % (Auto) 0.200 Neut % (Auto) 63.8 Lymph % (Auto) 16.3 L [place] % (Auto) 17.5 H Eos % (Auto) 0.8 Baso % (Auto) 1.4 H Absolute Neuts (auto) 4.2 Absolute Lymphs (auto) 1.08 Total Counted Not Reportable Differential Comment SCANNED PT INR APTT Sodium 137 Potassium 4.2 Chloride 97 L Carbon Dioxide 29.0 Anion Gap 11 BUN 31 H Creatinine 1.40 H Estim Creat Clear Calc 44.79 Est GFR (MDRD) Af Amer 64 Est GFR (MDRD) Non-Af 53 L BUN/Creatinine Ratio 22.1 H Glucose 86 Lactic Acid 2.6 H Calcium 8.5 Troponin I B-Natriuretic Peptide 06/16/18 06/16/18 17:15 18:00 WBC RBC Hgb Hct MCV MCH MCHC RDW RDW Differential Plt Count MPV Immature Gran % (Auto) Neut % (Auto) Lymph % (Auto) Estill % (Auto) Eos % (Auto) Baso % (Auto) Absolute Neuts (auto) Absolute Lymphs (auto) Total Counted Differential Comment PT Cancelled Pending INR Cancelled Pending APTT Cancelled Pending Sodium Potassium Chloride Carbon Dioxide Anion Gap BUN Creatinine Estim Creat Clear Calc Est GFR (MDRD) Af Amer Est GFR (MDRD) Non-Af BUN/Creatinine Ratio Glucose Lactic Acid Calcium Troponin I B-Natriuretic Peptide Clinical Impression(s) from Imaging Studies Chest X-Ray 06/16/18 14:48 IMPRESSION: Mild degree of increased markings at the right lung base just above atelectasis. Electronically Signed: Shen Echeverria MD at 16:04 EST , Service support , Assessment/Plan This is a 73 years old male patient presented to the emergency room because of shortness of breath, productive cough, nasal congestion an he was found to have probable COPD exacerbation secondary to viral URTI and he is being admitted for treatment. #1 probable COPD exacerbation: Chest x-ray reviewed, no acute infiltrate, pneumonia is unlikely. No evidence of acute CHF at this time. Lactic acid is slightly elevated. Plan: Admit to PCU, cardiac monitoring, sputum culture, respiratory panel for viruses, DuoNeb every 6 hours, albuterol as needed, incentive spirometer, chest physiotherapy, start IV Levaquin empirically, repeat CBC and BMP tomorrow morning, PT OT evaluation and treatment. #2 acute hypoxic respiratory insufficiency: Secondary to above in addition to history of CHF. Patient never been oxygen at home. Pulse ox was 83% on room air. Pulse ox improved to 95% on 3 L. Plan: Oxygen by nasal cannula, bronchodilators, chest physiotherapy, incentive spirometer as above, wean off oxygen as tolerated. #3 chronic open wound on the lower back/history of lumbar spine osteomyelitis: Without evidence of acute infection. He supposed to see a plastic surgeon at [facility] [address] [place] on Saturday. Patient wanted to go and see his doctor on Saturday at 11 AM and definitely he mentioned that he does not want to miss this appointment. We will check if the patient ended up staying tomorrow and see if he can be allowed to go to his appointment on Saturday and come back to the hospital. #4 paroxysmal atrial fibrillation: Rate is controlled, blood pressure stable, continue metoprolol for rate control and Eliquis for anticoagulation. #5 hypertension: Blood pressure stable, continue Lasix and metoprolol. #6 stage III chronic kidney disease: Stable, kidney function at his baseline. Plan to repeat BMP tomorrow morning. #7 chronic anemia: Stable, continue iron supplement. #8 chronic diastolic CHF: Clinically stable, compensated. Continue metoprolol and Lasix. #9 DVT prophylaxis: Continue Eliquis. This note was generated with [employer] dictation software. It may contain incorrect words, spelling, and punctuation that were not noted in checking the note before signing. Code Visit Inpatient E&M: 07969 Init Hosp L3
[2018-06-16 18:26] LABS: International Normalized Ratio 1.5; Prothrombin Time (Protime)PT. 18.2 SECONDS (11.7-14.9)
[2018-06-16 18:27] LABS: Partial Thromboplast Time 36.2 Seconds (24.1-36.2)
[2018-06-16 19:28] LABS: Reflex Lactate? Y
[2018-06-16 20:32] LABS: Lactic Acid 2.3 mmol/L (0.4-2.0)
[2018-06-16] MEDS: Metoprolol(XL)Succ 25 MG Tablet 12.5 MG PO (22:18)
[2018-06-16] MEDS: Atorvastatin Calcium 20 MG Tablet PO (22:18)
[2018-06-16] MEDS: MELATONIN 10 MG TABLET PO (22:18)
[2018-06-16] MEDS: APIXABAN 5 MG TABLET 2.5 MG PO (22:19)
[2018-06-16] MEDS: HYDROmorphone 2 MG TABLET 8 MG PO (22:19)
[2018-06-16] MEDS: Gabapentin 100 MG Capsule 200 MG PO (22:19)
[2018-06-16] MEDS: Furosemide 20 MG Tablet PO (22:23)
[2018-06-16] MEDS: Ipratropium/Albuterol Sulfate 3 ML AMPUL.NEB INHALATION (22:44)
[2018-06-16] MEDS: 0.9% Normal Saline 1,000 ML 100 ML IV (23:35)
[2018-06-17] VITALS (21 sets, daily range): BP systolic 107–120; BP diastolic 65–78; PULSE 83–99; RESP 14–24; TEMP 36.6–37; O2SAT 82–100
[2018-06-17] MEDS: Ipratropium/Albuterol Sulfate 3 ML AMPUL.NEB INHALATION ×5 (03:14→23:14)
[2018-06-17] MEDS: HYDROmorphone 2 MG TABLET 8 MG PO ×3 (04:06→16:17)
[2018-06-17 06:15] LABS: Lactic Acid 2.2 mmol/L (0.4-2.0)
[2018-06-17] MEDS: Furosemide 20 MG Tablet PO ×3 (06:23→20:57)
[2018-06-17] MEDS: APIXABAN 5 MG TABLET 2.5 MG PO (08:32)
[2018-06-17] MEDS: Gabapentin 100 MG Capsule PO (08:33)
[2018-06-17] MEDS: predniSONE 20 MG Tablet 40 MG PO (08:33)
[2018-06-17] MEDS: Magnesium Oxide 400 MG Tablet PO (08:33)
[2018-06-17] MEDS: Ferrous Sulfate 325 MG Tablet PO ×2 (08:33→16:17)
[2018-06-17] MEDS: Metoprolol(XL)Succ 25 MG Tablet 12.5 MG PO ×2 (08:33→20:56)
[2018-06-17] MEDS: Folic Acid 1 MG Tablet PO (08:33)
[2018-06-17] MEDS: levoFLOXacin IV 500 MG/100 ML BAG 100 MG IV (08:34)
[2018-06-17 09:54] LABS: Reflex Lactate? Y
--- NOTE | 2018-06-17 10:42 | NURSING ---
wound photo: mid lower back
--- NOTE | 2018-06-17 10:43 | NURSING ---
wound photo: left lateral lower leg
--- NOTE | 2018-06-17 10:44 | NURSING ---
wound photo: left lateral heel
[2018-06-17 10:45] LABS: Absolute Lymphocyte Count 0.67 X10^3/ul (0.83-4.51); Absolute Neutrophil Count 4.7 X10^3/uL (2.0-7.7); Basophil# 0.07 X10^3/uL; Eosinophil# 0.03 X10^3/uL; Eosinophils% 0.4 % (0-5); Hematocrit 34.4 % (40-54); Hemoglobin 10.2 g/dl (13.0-16.5); Lymphocyte # 0.67 X10^3/ul (4.0); Mean Corp Hgb Conc 29.7 g/gl (32-36); Mean Corpuscular Hgb 33.7 pg (27.0-32.0); Mean Corpuscular Volume 113.5 fL (80-94); Mean Platelet Vol. 9.1 fl (6.2-12.0); Monocyte# 1.24 X10^3/uL; Monocyte% 18.6 % (0-10); Neutrophil # 4.66 X10^3/uL (2.7-7.7); Neutrophil % 69.9 % (47-70); POSITIVE COUNT NO; POSITIVE DIFFERENTIAL NO; POSITIVE MORPHOLOGY YES; Platelet Count 380 K/mm3 (150-450); RBC Distribution Width SD 70.6 fl (35.1-43.9); Red Blood Count 3.03 M/mm3 (4.6-6.2); White Blood Count 6.7 K/mm3 (4.4-11.0)
[2018-06-17 10:46] LABS: Differential Indicated SCAN CRITERIA MET
[2018-06-17 11:07] LABS: Anion Gap 8 (5-15); BUN 27 mg/dL (7-18); BUN/Creat Ratio 20.1 RATIO (10-20); Calcium,Total 7.8 mg/dL (8.5-10.1); Chloride 98 mmol/L (98-107); Creatinine, Serum 1.34 mg/dL (0.70-1.30); EST Glomerular Filtration Rate 55 mL/min (>60); Est Glom Filt Rate - Afr Amer 67 mL/min (>60); Estimated Creatinine Clearance 46.79 ml/min; Glucose 112 mg/dL (74-106); Potassium 3.3 mmol/L (3.5-5.1); Sodium Level 131 mmol/L (136-145)
[2018-06-17 11:08] LABS: Hypochromasia 1+; Macrocytosis 1+; Platelet Estimate ADEQUATE (ADEQ)
[2018-06-17 11:30] LABS: Magnesium 1.7 mg/dL (1.6-2.6)
--- NOTE | 2018-06-17 13:11 | CASEMGMT ---
Readmission chart review: Pt was initially admitted 06/02/18-06/07/18 for Afib RVR and CHF. See SW assessment completed by Suresh on 06/02/18. Pt re-admitted 06/16/18 for probable COPD exac., hypoxia, viral URI. Therapy states that no therapy is needed for pt at this time. CM to follow for home oxygen and any further discharge planning/needs. SStalesha HARDY CM
--- NOTE | 2018-06-17 14:46 | PN_ITS ---
<Kennedy Mckeon - Last Filed: 06/17/18 14:42> Subjective: SOB at rest significantly improved. Occasional cough, occasional sputum. No fever/chills. States he does have a hx of COPD. He does not see a sandwich board carrier. He has no CP. He was SOB with exertion and desaturated to 82% with ambulation. His legs are swollen however he states this is much better than when he was here with Afib 2 weeks ago. - Physical Exam General: Alert, Oriented x3, Cooperative HEENT: Atraumatic, PERRLA, EOMI, Normocephalic Neck: Supple, No JVD, Negative Carotid Bruits Lungs: Diminished, Rales - at bases Cardiovascular: Regular rate, No murmurs Abdomen: Bowel Sounds Present, Soft, Non Tender Extremities: No edema, Capillary Refill Less than 3 Seconds Skin: No rashes, No breakdown Musculoskeletal: No Tenderness to Palpation of Joints or Extremities Neurological: Cranial nerves II-XII grossly intact Psych/Mental Status: Normal Affect, Appropriate, Alert and oriented to time, place, person, mood and affect Vital Signs Temp Pulse Resp BP Pulse Ox 98.3 F 88 20 H 120/67 98 06/17/18 08:38 06/17/18 11:08 06/17/18 11:08 06/17/18 08:38 06/17/18 11:08 Oxygen Flow Rate (L/min) [ 2 AMBULATION with Oxygen] Oxygen Flow Rate (L/min) 2 Oxygen Delivery Method Nasal Cannula Weight: 188 lb 0.869 oz Body Mass Index (BMI) 28.5 Intake and Output for Last 24 Hours 06/15/18 06/16/18 06/17/18 23:59 23:59 23:59 Intake Total 797 / 797 1829 / 1829 Output Total 200 / 200 1125 / 1125 Balance 597 / 597 704 / 704 Microbiology Past 72 Hours 06/16/18 22:50 Respiratory Panel (PCR) - Final Mucosa - Nasopharyngeal RSV B Laboratory Tests Past 24 Hrs 06/16/18 06/16/18 06/16/18 15:15 15:15 15:15 WBC RBC Hgb Hct MCV MCH MCHC RDW RDW Differential Plt Count MPV Immature Gran % (Auto) Neut % (Auto) Lymph % (Auto) [place]duff[place] % (Auto) Eos % (Auto) Baso % (Auto) Absolute Neuts (auto) Absolute Lymphs (auto) Total Counted Differential Comment Platelet Estimate Hypochromasia Macrocytosis PT Cancelled INR Cancelled APTT Cancelled Sodium Potassium Chloride Carbon Dioxide Anion Gap BUN Creatinine Estim Creat Clear Calc Est GFR (MDRD) Af Amer Est GFR (MDRD) Non-Af BUN/Creatinine Ratio Glucose Lactic Acid Calcium Magnesium Troponin I 0.024 B-Natriuretic Peptide 306.7 H 06/16/18 06/16/18 06/16/18 15:19 15:19 15:19 WBC 6.6 RBC 3.09 L Hgb 10.4 L Hct 34.2 L MCV 110.7 H MCH 33.7 H MCHC 30.4 L RDW 16.9 H RDW Differential 67.4 H Plt Count 408 MPV 9.3 Immature Gran % (Auto) 0.200 Neut % (Auto) 63.8 Lymph % (Auto) 16.3 L Mcduff[place] % (Auto) 17.5 H Eos % (Auto) 0.8 Baso % (Auto) 1.4 H Absolute Neuts (auto) 4.2 Absolute Lymphs (auto) 1.08 Total Counted Not Reportable Differential Comment SCANNED Platelet Estimate Hypochromasia Macrocytosis PT INR APTT Sodium 137 Potassium 4.2 Chloride 97 L Carbon Dioxide 29.0 Anion Gap 11 BUN 31 H Creatinine 1.40 H Estim Creat Clear Calc 44.79 Est GFR (MDRD) Af Amer 64 Est GFR (MDRD) Non-Af 53 L BUN/Creatinine Ratio 22.1 H Glucose 86 Lactic Acid 2.6 H Calcium 8.5 Magnesium Troponin I B-Natriuretic Peptide 06/16/18 06/16/18 06/16/18 17:15 18:00 19:52 WBC RBC Hgb Hct MCV MCH MCHC RDW RDW Differential Plt Count MPV Immature Gran % (Auto) Neut % (Auto) Lymph % (Auto) [place]duff[place] % (Auto) Eos % (Auto) Baso % (Auto) Absolute Neuts (auto) Absolute Lymphs (auto) Total Counted Differential Comment Platelet Estimate Hypochromasia Macrocytosis PT Cancelled 18.2 H INR Cancelled 1.5 APTT Cancelled 36.2 Sodium Potassium Chloride Carbon Dioxide Anion Gap BUN Creatinine Estim Creat Clear Calc Est GFR (MDRD) Af Amer Est GFR (MDRD) Non-Af BUN/Creatinine Ratio Glucose Lactic Acid 2.3 H Calcium Magnesium Troponin I B-Natriuretic Peptide 06/17/18 06/17/18 06/17/18 05:20 10:22 10:24 WBC 6.7 RBC 3.03 L Hgb 10.2 L Hct 34.4 L MCV 113.5 H MCH 33.7 H MCHC 29.7 L RDW 17.0 H RDW Differential 70.6 H Plt Count 380 MPV 9.1 Immature Gran % (Auto) 0.100 Neut % (Auto) 69.9 Lymph % (Auto) 10.0 L [place]ff[place] % (Auto) 18.6 H Eos % (Auto) 0.4 Baso % (Auto) 1.0 Absolute Neuts (auto) 4.7 Absolute Lymphs (auto) 0.67 L Total Counted Not Reportable Differential Comment Platelet Estimate ADEQUATE Hypochromasia 1+ Macrocytosis 1+ PT INR APTT Sodium Potassium Chloride Carbon Dioxide Anion Gap BUN Creatinine Estim Creat Clear Calc Est GFR (MDRD) Af Amer Est GFR (MDRD) Non-Af BUN/Creatinine Ratio Glucose Lactic Acid 2.2 H 3.0 H Calcium Magnesium Troponin I B-Natriuretic Peptide 06/17/18 06/17/18 10:24 10:24 WBC RBC Hgb Hct MCV MCH MCHC RDW RDW Differential Plt Count MPV Immature Gran % (Auto) Neut % (Auto) Lymph % (Auto) [place] % (Auto) Eos % (Auto) Baso % (Auto) Absolute Neuts (auto) Absolute Lymphs (auto) Total Counted Differential Comment Platelet Estimate Hypochromasia Macrocytosis PT INR APTT Sodium 131 L Potassium 3.3 L Chloride 98 Carbon Dioxide 25.0 Anion Gap 8 BUN 27 H Creatinine 1.34 H Estim Creat Clear Calc 46.79 Est GFR (MDRD) Af Amer 67 Est GFR (MDRD) Non-Af 55 L BUN/Creatinine Ratio 20.1 H Glucose 112 H Lactic Acid Calcium 7.8 L Magnesium 1.7 Troponin I B-Natriuretic Peptide Medical Necessity - Tobacco Use Smoking Status: Former smoker Assessment/Plan 1. Acute presumed COPD exacerbation 2/2 acute viral syndrome - RSV-B +. Continue steroids, aerosols, IS. CXR with atelectasis. No wheezing today. Improving. Afebrile no leukocytosis or left shift. DC levaquin. He does not see a sandwich board carrier and it is unclear if he has specifically had pulmonary function testing and what the results were. 2. Chronic systolic CHF - somewhat elevated BNP - pt states edema is much improved and no effusions or congestion on CXR. Continue home lasix dose. 3. Paroxysmal Afib - cardioverted ~ 2 weeks ago. SR. Eliquis. 4. hypokalemia - replete, mag low, replete. 5. Hyponatremia - gentle fluid restriction 6. NHL - in remission 7. Hx PE - on eliquis 8. CKD III - stable. DVT ppx: eliquis DC planning: Continue PT OT, patient may need home oxygen. This patient was seen by Kennedy Mckeon PA-C under the supervision of Doctor Trent. <Nery Newman - Last Filed: 06/17/18 16:09> - Physical Exam Vital Signs Temp Pulse Resp BP Pulse Ox 98.6 F 90 18 118/67 92 06/17/18 15:11 06/17/18 15:11 06/17/18 15:11 06/17/18 15:11 06/17/18 15:11 Oxygen Flow Rate (L/min) [ 2 AMBULATION with Oxygen] Oxygen Flow Rate (L/min) 1.5 Oxygen Delivery Method Nasal Cannula Weight: 188 lb 0.869 oz Body Mass Index (BMI) 28.5 Intake and Output for Last 24 Hours 06/15/18 06/16/18 06/17/18 23:59 23:59 23:59 Intake Total 797 / 797 1829 / 1829 Output Total 200 / 200 1125 / 1125 Balance 597 / 597 704 / 704 Microbiology Past 72 Hours 06/16/18 22:50 Respiratory Panel (PCR) - Final Mucosa - Nasopharyngeal RSV B Laboratory Tests Past 24 Hrs 06/16/18 06/16/18 06/16/18 15:15 15:15 15:15 WBC RBC Hgb Hct MCV MCH MCHC RDW RDW Differential Plt Count MPV Immature Gran % (Auto) Neut % (Auto) Lymph % (Auto) [place] % (Auto) Eos % (Auto) Baso % (Auto) Absolute Neuts (auto) Absolute Lymphs (auto) Total Counted Differential Comment Platelet Estimate Hypochromasia Macrocytosis PT Cancelled INR Cancelled APTT Cancelled Sodium Potassium Chloride Carbon Dioxide Anion Gap BUN Creatinine Estim Creat Clear Calc Est GFR (MDRD) Af Amer Est GFR (MDRD) Non-Af BUN/Creatinine Ratio Glucose Lactic Acid Calcium Magnesium Troponin I 0.024 B-Natriuretic Peptide 306.7 H 06/16/18 06/16/18 06/16/18 15:19 15:19 17:15 WBC RBC Hgb Hct MCV MCH MCHC RDW RDW Differential Plt Count MPV Immature Gran % (Auto) Neut % (Auto) Lymph % (Auto) [place]du[place] % (Auto) Eos % (Auto) Baso % (Auto) Absolute Neuts (auto) Absolute Lymphs (auto) Total Counted Not Reportable Differential Comment SCANNED Platelet Estimate Hypochromasia Macrocytosis PT Cancelled INR Cancelled APTT Cancelled Sodium Potassium Chloride Carbon Dioxide Anion Gap BUN Creatinine Estim Creat Clear Calc Est GFR (MDRD) Af Amer Est GFR (MDRD) Non-Af BUN/Creatinine Ratio Glucose Lactic Acid 2.6 H Calcium Magnesium Troponin I B-Natriuretic Peptide 06/16/18 06/16/18 06/17/18 18:00 19:52 05:20 WBC RBC Hgb Hct MCV MCH MCHC RDW RDW Differential Plt Count MPV Immature Gran % (Auto) Neut % (Auto) Lymph % (Auto) [place] % (Auto) Eos % (Auto) Baso % (Auto) Absolute Neuts (auto) Absolute Lymphs (auto) Total Counted Differential Comment Platelet Estimate Hypochromasia Macrocytosis PT 18.2 H INR 1.5 APTT 36.2 Sodium Potassium Chloride Carbon Dioxide Anion Gap BUN Creatinine Estim Creat Clear Calc Est GFR (MDRD) Af Amer Est GFR (MDRD) Non-Af BUN/Creatinine Ratio Glucose Lactic Acid 2.3 H 2.2 H Calcium Magnesium Troponin I B-Natriuretic Peptide 06/17/18 06/17/18 06/17/18 10:22 10:24 10:24 WBC 6.7 RBC 3.03 L Hgb 10.2 L Hct 34.4 L MCV 113.5 H MCH 33.7 H MCHC 29.7 L RDW 17.0 H RDW Differential 70.6 H Plt Count 380 MPV 9.1 Immature Gran % (Auto) 0.100 Neut % (Auto) 69.9 Lymph % (Auto) 10.0 L [place] % (Auto) 18.6 H Eos % (Auto) 0.4 Baso % (Auto) 1.0 Absolute Neuts (auto) 4.7 Absolute Lymphs (auto) 0.67 L Total Counted Not Reportable Differential Comment Platelet Estimate ADEQUATE Hypochromasia 1+ Macrocytosis 1+ PT INR APTT Sodium 131 L Potassium 3.3 L Chloride 98 Carbon Dioxide 25.0 Anion Gap 8 BUN 27 H Creatinine 1.34 H Estim Creat Clear Calc 46.79 Est GFR (MDRD) Af Amer 67 Est GFR (MDRD) Non-Af 55 L BUN/Creatinine Ratio 20.1 H Glucose 112 H Lactic Acid 3.0 H Calcium 7.8 L Magnesium Troponin I B-Natriuretic Peptide 06/17/18 10:24 WBC RBC Hgb Hct MCV MCH MCHC RDW RDW Differential Plt Count MPV Immature Gran % (Auto) Neut % (Auto) Lymph % (Auto) [place] % (Auto) Eos % (Auto) Baso % (Auto) Absolute Neuts (auto) Absolute Lymphs (auto) Total Counted Differential Comment Platelet Estimate Hypochromasia Macrocytosis PT INR APTT Sodium Potassium Chloride Carbon Dioxide Anion Gap BUN Creatinine Estim Creat Clear Calc Est GFR (MDRD) Af Amer Est GFR (MDRD) Non-Af BUN/Creatinine Ratio Glucose Lactic Acid Calcium Magnesium 1.7 Troponin I B-Natriuretic Peptide Assessment/Plan Patient seen by Kennedy Mckeon PA-C under my supervision. Patient was admitted with a complaint of SOB and is being managed for probable acute COPD exacerbation due to acute viral syndrome. Patient seen and examined. SOB is much better, and wheezing has also improved. review of systems otherwise negative. o.e Vital Signs Height 5 ft 8 in Weight: 188 lb 0.869 oz Weight in Pounds 188.1 lbs BMI 34.9 Pulse Ox [AMBULATION with 94 Oxygen] Pulse Ox [AMBULATING on Room 82 Air] Pulse Ox [At REST on Room Air] 92 Pulse Ox 92 Temperature 98.6 F Pulse Rate 90 Respiratory Rate 18 Blood Pressure [BP] 148/73 Blood Pressure 118/67 Blood Pressure Position [BP] Semi-Fowlers Blood Pressure Position Semi-Fowlers General: Alert, Oriented x3, Cooperative, HEENT: Atraumatic, PERRLA, EOMI Oral: Moist Mucosa, No Gingival or Mucosal Lesions/ Ulcerations Neck: Supple, No JVD, Negative Carotid Bruits, Trachea Midline, Thyroid Normal Size and Texture Lungs: mildly diminished breath sounds bibasally; few wheezes anteriorly. on room air Cardiovascular: Regular rate, Regular Rhythm, Normal S1, Normal S2, PMI Normal Abdomen: Bowel Sounds Present, Soft, Non Tender, Non-Distended, No Hepato- splenomegaly Extremities: No clubbing, No cyanosis, Edema Skin: No rashes, Ulcer/ Wound Lymphatic: No Cervical, Supraclavicular, or Inguinal Adenopathy Neurological: Cranial nerves II-XII grossly intact, Motor Exam 5/5 strength throughout Psych/Mental Status: Normal Affect, Appropriate, Alert and oriented to time, pl [place], person, mood and affect Plan is to continue with breathing treatments and IV solumedrol. DC antibiotics as there is no evidence of infection. He also has hypokalemia which will be replaced, and also hyponatremia, with Na of 131. This is likely due to hypervolemic hyponatremia as BNP is mildly elevated at 307. will continue diuresing with IV lasix and monitor. Rest of management as per Kennedy Mckeon PA-C's note, which I have reviewed and agree with. Code Visit Inpatient E&M: 08206 Subs Hosp L2
[2018-06-17] MEDS: Magnesium Oxide 400 MG Tablet 800 MG PO (16:17)
[2018-06-17] MEDS: Gabapentin 100 MG Capsule 200 MG PO (20:56)
[2018-06-17] MEDS: MELATONIN 10 MG TABLET PO (20:57)
[2018-06-17] MEDS: Atorvastatin Calcium 20 MG Tablet PO (20:57)
[2018-06-17] MEDS: APIXABAN 2.5 MG TABLET PO (22:27)
[2018-06-18] VITALS (13 sets, daily range): BP systolic 116–150; BP diastolic 65–83; PULSE 80–94; RESP 16–18; TEMP 36.4–36.5; O2SAT 87–99
[2018-06-18] MEDS: HYDROmorphone 2 MG TABLET 8 MG PO ×2 (02:46→08:29)
[2018-06-18] MEDS: Ipratropium/Albuterol Sulfate 3 ML AMPUL.NEB INHALATION ×2 (03:27→10:54)
[2018-06-18] MEDS: Furosemide 20 MG Tablet PO (05:43)
[2018-06-18 06:55] LABS: Absolute Lymphocyte Count 1.05 X10^3/ul (0.83-4.51); Absolute Neutrophil Count 4.4 X10^3/uL (2.0-7.7); Basophil# 0.02 X10^3/uL; Basophil% 0.3 % (0-1); Hemoglobin 9.7 g/dl (13.0-16.5); Lymphocyte # 1.05 X10^3/ul (4.0); Lymphocyte % 16.3 % (19-41); Mean Corp Hgb Conc 31.3 g/gl (32-36); Mean Corpuscular Hgb 34.9 pg (27.0-32.0); Mean Corpuscular Volume 111.5 fL (80-94); Mean Platelet Vol. 9.9 fl (6.2-12.0); Monocyte# 1.02 X10^3/uL; Monocyte% 15.8 % (0-10); Neutrophil # 4.35 X10^3/uL (2.7-7.7); Neutrophil % 67.4 % (47-70); Platelet Count 347 K/mm3 (150-450); RBC Distribution Width CV 16.3 % (11.6-14.6); RBC Distribution Width SD 64.4 fl (35.1-43.9); Red Blood Count 2.78 M/mm3 (4.6-6.2); White Blood Count 6.5 K/mm3 (4.4-11.0)
--- NOTE | 2018-06-18 07:00 | RAD_ITS ---
STUDY: X-RAY CHEST REASON FOR EXAM: Male, 73 years old. Shortness of breath and dyspnea. TECHNIQUE: PA and lateral views of the chest. COMPARISON: Comparison is made with prior study dated June 16, 2018. FINDINGS: EKG electrodes are seen. Elevation of the right hemidiaphragm with right basilar atelectasis and/or infiltrate. There is no demonstrated pleural abnormality. Normal size heart. Normal mediastinum and raquel. Normal visualized pulmonary arteries. There is atherosclerotic calcification of the aortic arch with tortuosity. There is demineralization of the osseous structures. Normal visualized ribs, clavicles, and shoulders. There is no demonstrated abnormality of the visualized soft tissue structures of the upper abdomen. RAD/Chest PA and Lateral IMPRESSION: Right basilar atelectasis and/or infiltrate. Follow-up is recommended. Electronically Signed: Shen Echeverria MD at 11:27 EST , Service support ,
[2018-06-18 07:07] LABS: POSITIVE COUNT NO; POSITIVE DIFFERENTIAL NO; POSITIVE MORPHOLOGY NO
[2018-06-18 07:17] LABS: Anion Gap 9 (5-15); BUN 27 mg/dL (7-18); BUN/Creat Ratio 20.3 RATIO (10-20); Calcium,Total 8.7 mg/dL (8.5-10.1); Chloride 99 mmol/L (98-107); Creatinine, Serum 1.33 mg/dL (0.70-1.30); EST Glomerular Filtration Rate 56 mL/min (>60); Est Glom Filt Rate - Afr Amer 68 mL/min (>60); Estimated Creatinine Clearance 47.14 ml/min; Glucose 99 mg/dL (74-106); Sodium Level 138 mmol/L (136-145)
[2018-06-18] MEDS: Magnesium Oxide 400 MG Tablet PO (07:57)
[2018-06-18] MEDS: predniSONE 20 MG Tablet 40 MG PO (07:57)
[2018-06-18] MEDS: Folic Acid 1 MG Tablet PO (07:57)
[2018-06-18] MEDS: Ferrous Sulfate 325 MG Tablet PO (07:57)
[2018-06-18] MEDS: Metoprolol(XL)Succ 25 MG Tablet 12.5 MG PO (09:42)
[2018-06-18] MEDS: APIXABAN 2.5 MG TABLET PO (10:17)
[2018-06-18] MEDS: Gabapentin 100 MG Capsule PO (10:18)
--- NOTE | 2018-06-18 10:54 | DCINST_ITS ---
You will use the following diet at home:: Cardiac - <2 grams sodium daily Your food should be the consistency of: Regular Your liquids should be the consistency of: Regular/Thin Discharge Activity: Return to Normal Activity Allergies/Adverse Reactions: Allergies chlorthalidone Allergy (Verified 06/16/18 13:58) Unknown ramipril [From Altace] Allergy (Verified 06/16/18 13:58) Unknown sulfamethoxazole [From Bactrim] Allergy (Verified 06/16/18 13:58) Other trazodone Allergy (Verified 06/16/18 13:58) Unknown trimethoprim [From Bactrim] Allergy (Verified 06/16/18 13:58) Other prednisone Adverse Reaction (Verified 06/16/18 13:58) Swelling Medications to take at Discharge Folic Acid 1 mg PO DAILY@0800 02/05/16 Magnesium Oxide [Magnesium] 400 mg PO DAILY@0800 02/05/16 Gabapentin [Neurontin] 100 mg PO DAILY 07/04/17 Vit C/E/Zn/Coppr/Lutein/Zeaxan [Preservision Areds 2 Softgel] 1 ea PO BID 07/04/17 apixaban 5 mg tablet 2.5 mg PO BID tab 08/27/17 ferrous fumarate 325 mg (106 mg iron) tablet 325 mg PO BID tab 08/27/17 atorvastatin 20 mg tablet 20 mg PO QHS #90 tab 09/04/17 Acetaminophen [Tylenol Arthritis] 1,300 mg PO PRN PRN 06/02/18 Gabapentin [Neurontin] 200 mg PO DAILY 06/02/18 Hydromorphone HCl 8 mg PO Q4H PRN PRN 06/02/18 Melatonin 10 mg PO QHS 06/02/18 Metoprolol Succinate [Toprol Xl] 12.5 mg PO BID 06/02/18 fentaNYL patch [Duragesic Patch] 100 mcg TRANSDERM. Q72H 06/02/18 Potassium Chloride [K-Dur] 20 meq PO DAILY #30 tablet 06/07/18 Furosemide [Lasix] 20 mg PO TID 06/16/18 Acetaminophen [Tylenol Tablet] 650 mg PO Q6H PRN PRN tablet 06/18/18 Albuterol Inhaler [Ventolin Hfa] 1 puff INHALATION Q4H PRN PRN #1 inhaler 06/18/18 Prednisone 10 mg PO UD #22 tab 06/18/18 The following prescriptions were given: Albuterol Inhaler [Ventolin Hfa] 1 puff INHALATION Q4H PRN PRN #1 inhaler PRN Reason: Sob &/Or Wheezing Prednisone 10 mg PO UD #22 tab Primary Care Physician: Bernardo Lawson DO [Primary Care Provider] - Please follow up with your Primary Care Physician in: 1 week Test Results: Test results from this visit will be discussed in further detail at your follow- up appointment, if applicable. Proposed Discharge Date: 06/18/18
--- NOTE | 2018-06-18 13:11 | CASEMGMT ---
Addendum entered by Michelle Duran 06/18/18 14:47: 1445 This RN CM did reach Sharon at [facility] [place] at this time and she states that she attempted to deliver tank to pt and pt refused tank at this time. Sharon states that pt was willing to have concentrator/tanks at house but did not want tank to go home. Claudia HARDY CM Original Note: Addendum entered by Michelle Duran 06/18/18 14:43: 1419 Rupali, charge accounts audit clerk,and [employer] inquiring with this RN CM how soon O2 tank to arrive for pt at this time. They state that pt is very anxious to leave at this time. This RN CM attempted to reach [facility] [place] without success at this time. Sharon had states when called previously that they would get a tank over as soon as they could. Charge and [employer] aware at this time, voice understanding. Claudia RN [place] Original Note: Per Charissa RN, pt does qualify for home oxygen at this time. This RN CM to room to speak with pt regarding same and pt is very frustrated at this time, stating that everyone keeps telling him different things and pt mentions nebulizer and prednisone. This RN CM tried to clarify all with pt at this time and explanation of home oxygen also done at this time, pt voiced understanding and stated no preference for company but then shut down and would not speak to this RN CM any longer. Referral for 3Liters home oxygen faxed to [facility] [place] at this time and call to Sharon at [facility] [place] to notify of referral, voices understanding. Claudia AHRDY CM
--- NOTE | 2018-06-18 16:13 | PN_ITS ---
- Physical Exam General: Alert, Oriented x3, Cooperative HEENT: Atraumatic, PERRLA, EOMI, Normocephalic Neck: Supple, No JVD, Negative Carotid Bruits Lungs: Clear to auscultation, Normal air movement Cardiovascular: Regular rate, No murmurs Abdomen: Bowel Sounds Present, Soft, Non Tender Extremities: No edema, Capillary Refill Less than 3 Seconds Skin: No rashes, No breakdown Musculoskeletal: No Tenderness to Palpation of Joints or Extremities Neurological: Cranial nerves II-XII grossly intact Psych/Mental Status: Normal Affect, Appropriate, Alert and oriented to time, place, person, mood and affect Vital Signs Temp Pulse Resp BP Pulse Ox 97.6 F L 84 16 150/83 H 93 06/18/18 11:40 06/18/18 11:40 06/18/18 11:40 06/18/18 11:40 06/18/18 13:52 Oxygen Flow Rate (L/min) [ 3 AMBULATION with Oxygen] Oxygen Flow Rate (L/min) [ 0 AMBULATING on Room Air] Oxygen Flow Rate (L/min) [At 0 REST on Room Air] Oxygen Flow Rate (L/min) 1 Oxygen Delivery Method Room Air Weight: 188 lb 0.869 oz Body Mass Index (BMI) 28.5 Intake and Output for Last 24 Hours 06/16/18 06/17/18 06/18/18 23:59 23:59 23:59 Intake Total 797 / 797 2309 / 2309 480 / 480 Output Total 200 / 200 2000 / 2000 350 / 350 Balance 597 / 597 309 / 309 130 / 130 Microbiology Past 72 Hours 06/16/18 22:50 Respiratory Panel (PCR) - Final Mucosa - Nasopharyngeal RSV B Laboratory Tests Past 24 Hrs 06/18/18 06/18/18 06:15 06:15 WBC 6.5 RBC 2.78 L Hgb 9.7 L Hct 31.0 L MCV 111.5 H MCH 34.9 H MCHC 31.3 L RDW 16.3 H RDW Differential 64.4 H Plt Count 347 MPV 9.9 Immature Gran % (Auto) 0.200 Neut % (Auto) 67.4 Lymph % (Auto) 16.3 L [place] % (Auto) 15.8 H Eos % (Auto) 0.0 Baso % (Auto) 0.3 Absolute Neuts (auto) 4.4 Absolute Lymphs (auto) 1.05 Total Counted Not Reportable Sodium 138 Potassium 4.0 Chloride 99 Carbon Dioxide 30.0 Anion Gap 9 BUN 27 H Creatinine 1.33 H Estim Creat Clear Calc 47.14 Est GFR (MDRD) Af Amer 68 Est GFR (MDRD) Non-Af 56 L BUN/Creatinine Ratio 20.3 H Glucose 99 Calcium 8.7 Medical Necessity - Tobacco Use Smoking Status: Former smoker Assessment/Plan 1. Acute presumed COPD exacerbation 2/2 acute viral syndrome - RSV-B +. Continue steroids, aerosols, IS. CXR with atelectasis. No wheezing today. Improving. Afebrile no leukocytosis or left shift. DC levaquin. He does not see a medical insurance biller and it is unclear if he has specifically had pulmonary function testing and what the results were. 2. Chronic systolic CHF - somewhat elevated BNP - pt states edema is much improved and no effusions or congestion on CXR. Continue home lasix dose. 3. Paroxysmal Afib - cardioverted ~ 2 weeks ago. SR. Eliquis. 4. hypokalemia - replete, mag low, replete. 5. Hyponatremia - gentle fluid restriction 6. NHL - in remission 7. Hx PE - on eliquis 8. CKD III - stable. DVT ppx: eliquis ROSENDO planning: Continue PT OT, patient may need home oxygen. This patient was seen by Kennedy Mckeon PA-C under the supervision of Doctor Newman.
--- NOTE | 2018-06-18 16:18 | DS.PCM_ITS ---
<Kennedy Mckeon - Last Filed: 06/18/18 16:13> Discharge Date and Diagnosis Date of Admission: 06/16/18 Date of Discharge: 06/18/18 - Primary Discharge Diagnosis 1. 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) History of non-Hodgkin's lymphoma (Chronic) Ascending aorta dilatation (Chronic) Aortic root dilatation (Chronic) PSVT (paroxysmal supraventricular tachycardia) (Chronic) Cardiomyopathy, dilated (Chronic) Paroxysmal atrial fibrillation (Chronic) Pericardial effusion (Chronic) Pulmonary embolism (Chronic) Chronic kidney disease (Chronic) Non-Hodgkin lymphoma (Chronic) Hyperlipidemia (Chronic) Hypertension (Chronic) Peripheral vascular disease (Chronic) Hospital Course and Treatment Imaging Results: COPD excacerbation 2/2 acute viral syndrome RSVB Chronic systolic CHF PAFib Hypokalemia, hypomagnesemia, hyponatremia NHL Hx PE CKDIII Consultations 06/16/18 18:34 Consult: Onc/Wound/childcare provider Routine Comment: Open chronic lower back wound Operations: None Procedures: None Summary of Care Provided: Hospital Course: The patient is a 73 year old M with pmhx as above recently admitted with Afib / CHF who presents to the ER with SOB, wheezing, hypoxia, and runny nose. He had negative CXR, no leukocytosis, and was afebrile. He was felt to have an acute viral syndrome and COPD exacerbation. He was admitted, placed on o2 and given aerosols and steroids. He improved gradually and was able to be weaned off O2 at rest. Resp panel showed RSV-B. He was ambulated and required 3 lpm O2 when walking, none at rest to maintain adequate sats. He was discharged home in stable condition with steroid taper and albuterol inhaler. Follow up with PCP in 1 week. This patient was seen by Kennedy Mckeon PA-C under the supervision of Dr. Newman [] - Physical Exam General: Alert, Oriented x3, Cooperative HEENT: Atraumatic, PERRLA, EOMI, Normocephalic Neck: Supple, No JVD, Negative Carotid Bruits Lungs: Clear to auscultation, Normal air movement Cardiovascular: Regular rate, No murmurs Abdomen: Bowel Sounds Present, Soft, Non Tender Extremities: No edema, Capillary Refill Less than 3 Seconds Skin: No rashes, No breakdown Musculoskeletal: No Tenderness to Palpation of Joints or Extremities Neurological: Cranial nerves II-XII grossly intact Psych/Mental Status: Normal Affect, Appropriate Vital Signs Temp Pulse Resp BP Pulse Ox 97.6 F L 84 16 150/83 H 93 06/18/18 11:40 06/18/18 11:40 06/18/18 11:40 06/18/18 11:40 06/18/18 13:52 Oxygen Flow Rate (L/min) [ 3 AMBULATION with Oxygen] Oxygen Flow Rate (L/min) [ 0 AMBULATING on Room Air] Oxygen Flow Rate (L/min) [At 0 REST on Room Air] Oxygen Flow Rate (L/min) 1 Oxygen Delivery Method Room Air Weight: 188 lb 0.869 oz Body Mass Index (BMI) 28.5 Intake and Output for Last 24 Hours 06/16/18 06/17/18 06/18/18 23:59 23:59 23:59 Intake Total 797 / 797 2309 / 2309 480 / 480 Output Total 200 / 200 2000 / 2000 350 / 350 Balance 597 / 597 309 / 309 130 / 130 Microbiology Past 72 Hours 06/16/18 22:50 Respiratory Panel (PCR) - Final Mucosa - Nasopharyngeal RSV B Laboratory Tests Past 24 Hrs 06/18/18 06/18/18 06:15 06:15 WBC 6.5 RBC 2.78 L Hgb 9.7 L Hct 31.0 L MCV 111.5 H MCH 34.9 H MCHC 31.3 L RDW 16.3 H RDW Differential 64.4 H Plt Count 347 MPV 9.9 Immature Gran % (Auto) 0.200 Neut % (Auto) 67.4 Lymph % (Auto) 16.3 L [place] % (Auto) 15.8 H Eos % (Auto) 0.0 Baso % (Auto) 0.3 Absolute Neuts (auto) 4.4 Absolute Lymphs (auto) 1.05 Total Counted Not Reportable Sodium 138 Potassium 4.0 Chloride 99 Carbon Dioxide 30.0 Anion Gap 9 BUN 27 H Creatinine 1.33 H Estim Creat Clear Calc 47.14 Est GFR (MDRD) Af Amer 68 Est GFR (MDRD) Non-Af 56 L BUN/Creatinine Ratio 20.3 H Glucose 99 Calcium 8.7 Discharge Diet: Low fat/ Low Cholesterol, 2000 mg Sodium Diet Discharge Activity: Return to Normal Activity Home Medications: Medications to take at Discharge Folic Acid 1 mg PO DAILY@0800 02/05/16 Magnesium Oxide [Magnesium] 400 mg PO DAILY@0800 02/05/16 Gabapentin [Neurontin] 100 mg PO DAILY 07/04/17 Vit C/E/Zn/Coppr/Lutein/Zeaxan [Preservision Areds 2 Softgel] 1 ea PO BID 07/04/17 apixaban 5 mg tablet 2.5 mg PO BID tab 08/27/17 ferrous fumarate 325 mg (106 mg iron) tablet 325 mg PO BID tab 08/27/17 atorvastatin 20 mg tablet 20 mg PO QHS #90 tab 09/04/17 Acetaminophen [Tylenol Arthritis] 1,300 mg PO PRN PRN 06/02/18 Gabapentin [Neurontin] 200 mg PO DAILY 06/02/18 Hydromorphone HCl 8 mg PO Q4H PRN PRN 06/02/18 Melatonin 10 mg PO QHS 06/02/18 Metoprolol Succinate [Toprol Xl] 12.5 mg PO BID 06/02/18 fentaNYL patch [Duragesic Patch] 100 mcg TRANSDERM. Q72H 06/02/18 Potassium Chloride [K-Dur] 20 meq PO DAILY #30 tablet 06/07/18 Furosemide [Lasix] 20 mg PO TID 06/16/18 Acetaminophen [Tylenol Tablet] 650 mg PO Q6H PRN PRN tablet 06/18/18 Albuterol Inhaler [Ventolin Hfa] 1 puff INHALATION Q4H PRN PRN #1 inhaler 0 06/18/18 Prednisone 10 mg PO UD #22 tab 06/18/18 Following Prescrptions Were Given to Patient: Albuterol Inhaler [Ventolin Hfa] 1 puff INHALATION Q4H PRN PRN #1 inhaler PRN Reason: Sob &/Or Wheezing Prednisone 10 mg PO UD #22 tab Primary Care Physician: Bernardo Lawson DO [Primary Care Provider] - Please follow up with your Primary Care Physician in: 1 week Please Follow Up With: Bernardo Lawson DO Disposition: Home Minutes spent on discharge:: 35 Patient Condition:: Stable Medical Necessity - Tobacco Use Smoking Status: Former smoker Meaningful Use Info Meaningful Use Diagnoses (Choose all that apply): None applicable <Nery Newman - Last Filed: 06/18/18 16:45> Discharge Date and Diagnosis - Primary Discharge Diagnosis acute probable COPD exacerbation due to acute viral URTI 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) History of non-Hodgkin's lymphoma (Chronic) Ascending aorta dilatation (Chronic) Aortic root dilatation (Chronic) PSVT (paroxysmal supraventricular tachycardia) (Chronic) Cardiomyopathy, dilated (Chronic) Paroxysmal atrial fibrillation (Chronic) Pericardial effusion (Chronic) Pulmonary embolism (Chronic) Chronic kidney disease (Chronic) Non-Hodgkin lymphoma (Chronic) Hyperlipidemia (Chronic) Hypertension (Chronic) Peripheral vascular disease (Chronic) Hospital Course and Treatment Consultations 06/16/18 18:34 Consult: Onc/Wound/childcare provider Routine Comment: Open chronic lower back wound Summary of Care Provided: Patient seen by Kennedy Mckeon PA-C under my supervision. The patient is a 73 year old M admitted with a complaint of shortness of breath and is being managed for probable acute COPD exacerbation due to respiratory tract infection due to RSV. Patient seen and examined today and was feeling much better. He was off oxygen and shortness of breath had resolved. Review of systems otherwise negative. Labs and vitals reviewed. Review of signs otherwise negative. o/e: Vital Signs Height 5 ft 8 in Weight: 188 lb 0.869 oz Weight in Pounds 188.1 lbs BMI 34.9 Pulse Ox [AMBULATION with 91 Oxygen] Pulse Ox [AMBULATING on Room 87 Air] Pulse Ox [At REST on Room Air] 93 Pulse Ox 93 Temperature 97.6 F Pulse Rate 84 Respiratory Rate 16 Blood Pressure [BP] 148/73 Blood Pressure 150/83 Blood Pressure Position [BP] Semi-Fowlers Blood Pressure Position Sitting General: Alert, Oriented x3, Cooperative, HEENT: Atraumatic, PERRLA, EOMI Oral: Moist Mucosa, No Gingival or Mucosal Lesions/ Ulcerations Neck: Supple, No JVD, Negative Carotid Bruits, Trachea Midline, Thyroid Normal Size and Texture Lungs: mildly diminished breath sounds bibasally; few wheezes anteriorly. on room air Cardiovascular: Regular rate, Regular Rhythm, Normal S1, Normal S2, PMI Normal Abdomen: Bowel Sounds Present, Soft, Non Tender, Non-Distended, No Hepato- splenomegaly Extremities: No clubbing, No cyanosis, Edema Skin: No rashes, Ulcer/ Wound Lymphatic: No Cervical, Supraclavicular, or Inguinal Adenopathy Neurological: Cranial nerves II-XII grossly intact, Motor Exam 5/5 strength throughout Psych/Mental Status: Normal Affect, Appropriate, Alert and oriented to time, place, person, mood and affect Plan is to discharge patient home with a tapering dose of steroids. Patient qualify for home oxygen as his saturation dropped to 87% while ambulating on room air. He needed up to 3 L of oxygen to maintain saturation above 90%. Patient however refused to take oxygen tank, she said the tongue was too big and did not want to wait for a small attempt to be delivered to him. This will be delivered to him at home. He is to follow-up with his primary care doctor. Rest of management as per Kennedy Mckeon PA-C's note, which I have reviewed and agree with. [] - Physical Exam Vital Signs Temp Pulse Resp BP Pulse Ox 97.6 F L 84 16 150/83 H 93 06/18/18 11:40 06/18/18 11:40 06/18/18 11:40 06/18/18 11:40 06/18/18 13:52 Oxygen Flow Rate (L/min) [ 3 AMBULATION with Oxygen] Oxygen Flow Rate (L/min) [ 0 AMBULATING on Room Air] Oxygen Flow Rate (L/min) [At 0 REST on Room Air] Oxygen Flow Rate (L/min) 1 Oxygen Delivery Method Room Air Weight: 188 lb 0.869 oz Body Mass Index (BMI) 28.5 Intake and Output for Last 24 Hours 06/16/18 06/17/18 06/18/18 23:59 23:59 23:59 Intake Total 797 / 797 2309 / 2309 480 / 480 Output Total 200 / 200 1999 / 1999 350 / 350 Balance 597 / 597 309 / 309 130 / 130 Microbiology Past 72 Hours 06/16/18 22:50 Respiratory Panel (PCR) - Final Mucosa - Nasopharyngeal RSV B Laboratory Tests Past 24 Hrs 06/18/18 06/18/18 06:15 06:15 WBC 6.5 RBC 2.78 L Hgb 9.7 L Hct 31.0 L MCV 111.5 H MCH 34.9 H MCHC 31.3 L RDW 16.3 H RDW Differential 64.4 H Plt Count 347 MPV 9.9 Immature Gran % (Auto) 0.200 Neut % (Auto) 67.4 Lymph % (Auto) 16.3 L [place] % (Auto) 15.8 H Eos % (Auto) 0.0 Baso % (Auto) 0.3 Absolute Neuts (auto) 4.4 Absolute Lymphs (auto) 1.05 Total Counted Not Reportable Sodium 138 Potassium 4.0 Chloride 99 Carbon Dioxide 30.0 Anion Gap 9 BUN 27 H Creatinine 1.33 H Estim Creat Clear Calc 47.14 Est GFR (MDRD) Af Amer 68 Est GFR (MDRD) Non-Af 56 L BUN/Creatinine Ratio 20.3 H Glucose 99 Calcium 8.7 Code Visit Inpatient E&M: 78049 Disch Hosp
--- NOTE | 2018-06-19 15:35 | CASEMGMT ---
ANTONY GARIBAY Discharge Follow-Up Phone Call. Lace:?11? Strata: 3 Discharge Date: 06/18/18 Adm Dx:?? Probable COPD Exac, Hypoxia, Viral URI. Attempted discharge follow-up phone call. No answer. Message left for pt to return call to SHRIMP PICKERAlisa HARDY CM, if he has any questions about discharge instructions, medications, appts, or any other concerns. Phone number provided. Alexander GUTIERRES RN CM
== END 2018-06-18 14:39 | disposition home or self-care (01) | DRG 191 ==
LOC: ED 17:21 → PCU 18:25
PROVIDERS: Hospitalist; Physician Assistant; Admitting Provider Hospitalist; Emergency Provider Emergency Medicine; Family Provider Family Medicine; PCP Family Medicine; Referring Provider Hospitalist; Visit Provider Student in an Organized Health Care Education/Training Program
DX: J44.1 Chronic obstructive pulmonary disease with (acute) exacerbation (principal); I13.0 Hypertensive heart and chronic kidney disease with heart failure and stage 1 through stage 4 chronic kidney disease, or unspecified chronic kidney disease; C85.90 Non-Hodgkin lymphoma, unspecified, unspecified site; E87.1 Hypo-osmolality and hyponatremia; I50.22 Chronic systolic (congestive) heart failure; I42.0 Dilated cardiomyopathy; T81.30XA Disruption of wound, unspecified, initial encounter; L03.312 Cellulitis of back [any part except buttock and flank]; I48.0 Paroxysmal atrial fibrillation; N18.3 Chronic kidney disease, stage 3 (moderate); E87.6 Hypokalemia; I27.21 Secondary pulmonary arterial hypertension; T81.89XA Other complications of procedures, not elsewhere classified, initial encounter; E78.5 Hyperlipidemia, unspecified; I73.9 Peripheral vascular disease, unspecified; Z79.01 Long term (current) use of anticoagulants; J06.9 Acute upper respiratory infection, unspecified; Z86.711 Personal history of pulmonary embolism; B97.4 Respiratory syncytial virus as the cause of diseases classified elsewhere; Y83.8 Other surgical procedures as the cause of abnormal reaction of the patient, or of later complication, without mention of misadventure at the time of the procedure; I87.2 Venous insufficiency (chronic) (peripheral); B99.8 Other infectious disease
CPT/HCPCS: 11042; 11045; 36415; 71046; 80048; 83605; 83735; 83880; 84484; 85025; 85610; 85730; 87633; 93005; 94640; 94667; 97161; 97166; 97802; 99284; J7030; J7050; A4216

== ENCOUNTER → 2018-06-23 10:53 | Outpatient (CLI) | payer MEDICARE, OTHER, SELFPAY ==
[2015-10-31 10:00] VITALS: BMI 34.9
[2018-06-02 11:07] VITALS: BMI 27.8
[2018-06-16 18:35] VITALS: BMI 28.5
[2018-06-23 11:33] LABS: Absolute Lymphocyte Count 1.11 X10^3/ul (0.83-4.51); Absolute Neutrophil Count 6.1 X10^3/uL (2.0-7.7); Basophil# 0.01 X10^3/uL; Basophil% 0.1 % (0-1); Hematocrit 32.3 % (40-54); Hemoglobin 10.5 g/dl (13.0-16.5); Lymphocyte # 1.11 X10^3/ul (4.0); Lymphocyte % 13.4 % (19-41); Mean Corp Hgb Conc 32.5 g/gl (32-36); Mean Corpuscular Hgb 35.4 pg (27.0-32.0); Mean Corpuscular Volume 108.8 fL (80-94); Mean Platelet Vol. 9.3 fl (6.2-12.0); Neutrophil # 6.14 X10^3/uL (2.7-7.7); Neutrophil % 73.9 % (47-70); Platelet Count 409 K/mm3 (150-450); RBC Distribution Width CV 16.7 % (11.6-14.6); Red Blood Count 2.97 M/mm3 (4.6-6.2); White Blood Count 8.3 K/mm3 (4.4-11.0)
[2018-06-23 11:34] LABS: POSITIVE COUNT NO; POSITIVE DIFFERENTIAL NO; POSITIVE MORPHOLOGY NO
[2018-06-23 11:42] VITALS: BP 127/73; PULSE 79; RESP 16; TEMP 36.4; O2SAT 93; BMI 28.3
[2018-06-23 11:56] LABS: Albumin, Serum 2.8 g/dL (3.2-5.0); BUN 43 mg/dL (7-18); BUN/Creat Ratio 31.2 RATIO (10-20); Calcium,Total 8.2 mg/dL (8.5-10.1); Chloride 103 mmol/L (98-107); Creatinine, Serum 1.38 mg/dL (0.70-1.30); EST Glomerular Filtration Rate 54 mL/min (>60); Est Glom Filt Rate - Afr Amer 65 mL/min (>60); Estimated Creatinine Clearance 45.43 ml/min; Glucose 94 mg/dL (74-106); Phosphorus 2.2 mg/dL (2.5-4.9); Potassium 4.1 mmol/L (3.5-5.1); Sodium Level 141 mmol/L (136-145)
== END ==
PROVIDERS: Family Provider Family Medicine; PCP Family Medicine; Referring Provider Internal Medicine Nephrology; Visit Provider Internal Medicine Nephrology
DX: N18.3 Chronic kidney disease, stage 3 (moderate) (principal); D63.1 Anemia in chronic kidney disease
CPT/HCPCS: 36415; 80069; 85025; 96372; J0885

== ENCOUNTER 2018-06-27 12:30 | Outpatient (RCR) | payer MEDICARE, OTHER, SELFPAY ==
[2015-10-31 10:00] VITALS: BMI 34.9
[2018-06-06 01:02] VITALS: BP 158/62; PULSE 124; RESP 18; TEMP 35.7
[2018-06-11 11:35] VITALS: BMI 31.1
[2018-06-13 12:39] VITALS: BP 139/67; PULSE 91; RESP 18; TEMP 36.1; BMI 31.1
--- NOTE | 2018-06-13 17:50 | PCM.WC.PN ---
(1) Nonhealing surgical wound Status: Chronic Current Visit: Yes Qualifiers: Encounter type: subsequent encounter Code(s): T81.89XA - Other complications of procedures, not elsewhere classified, initial encounter (2) Open wound of lower back Status: Chronic Current Visit: Yes Code(s): S31.000A - Unspecified open wound of lower back and pelvis without penetration into retroperitoneum, initial encounter (3) Chronic kidney disease Status: Chronic Current Visit: Yes Qualifiers: Chronic kidney disease stage: stage 3 (moderate) Code(s): N18.9 - Chronic kidney disease, unspecified Type of Wound Date of Service: 06/13/18 Chief Complaint: Nonhealing surgical wound of lower back History of Wound: Mr. Marshall is a 73-yo who has been seen here at the wound center for a nonhealing surgical wound of his lower back s/p surgical debridement for an abscess s/p lumbar spine surgery. His original surgery on his lower back was approximately 2016 and he has had multiple complications since that time. He underwent surgical debridement on 03/04/[address] Davila at [facility] in [place] and was discharged with a wound vac for healing by secondary intention with possible muscle flap closure in the future. He followed up with his surgeon on 04/18/17 for further evaluation and recommendations and they plan to close the wound with a muscle flap but he continues to develop infections. He is also being seen by Infectious Disease as needed. CT 02/2018 did not show any abscess. Progress of Wound: Cuong is here for follow-up of his nonhealing surgical wound of his lower back. His wound remains stable and continues to show mild improvement. He has been tolerating Aquacel extra and gauze and ABDs. He was hospitalized recently for CHF. He was seen by his PCP for follow up and started on doxycycline for cellulitis of his left leg surrounding an eschar that occurred while he was in the hospital due to lower extremity edema. He has had 10 applications of Purapply with mild improvement. He saw a plastic surgeon at [facility] on 04/02/18 who is hopeful to close Cuong's surgical wound with a skin flap. He requested additional records of CT scans as well as information on radiation that was done previously. Cuong is scheduled to see the surgeon at [facility] this coming week. He has been having increased pain in his back and left leg presumably from nerve impingement which he had epidural injections done and did not get any relief from these. Denies increased drainage, odor, fever or chills. - Physical Exam Vital Signs Temp Pulse Resp BP 96.9 F L 91 18 139/67 H 06/13/18 12:39 06/13/18 12:39 06/13/18 12:39 06/13/18 12:39 General: Alert, Oriented x3, Cooperative, No apparent distress HEENT: Atraumatic, Normocephalic Oral: Moist Mucosa Extremities: Edema Skin: Ulcer/ Wound Wound Measurements and Assessment WC - Nurse 1 - General Ulcer Measurement Start: 06/13/18 12:37 Freq: Status: Active Protocol: Activity Type Activity Date Activity User E-Sign Co-Sign Detail Recorded Client Recorded Date Recorded By Document 06/13/18 12:39 [facility] [id number] 06/13/18 12:49 [facility] 06/13/18 12:39 Wound Center Nurse 1 [Ulcer Assessment] #9 Lower Lumbar- Midline -Combined with other wound No -Current Size (cm) - Length 14 -Current Size (cm) - Width 4.5 -Current Size (cm) - Depth 1.1 -Total Square Cm 63.0 -Photo Taken No -Epithelialization None Present -Tunneling No -Undermining/Tunneling No -Circular Undermining No -Exudate Amt Large -Exudate Type Serosanguineous -Wound Margin Thickened & Rolled Under -Granulation Amt Small (1-33%) -Granulation Quality [place] -Slough/Fibrin Yes -Necrosis Amt Large (67-100%) -Necrotic Tissue Type Adherent Slough -Texture (Uma-wound Skin Appearance) Assessed Scarring -Moisture (Uma-wound Skin Appearance Assessed ) Dry/Scaly -Color (Uma-wound Skin Appearance) Assessed -Temperature (Uma-wound Skin No Abnormality Appearance) (Pt Warm) -Tenderness on Palpation (Uma-wound No Skin Appearance) -Ulcer Cleansing Wound Cleanser -Foul Odor after Cleansing No -Anesthetic Used 4% Lidocaine Solution WC - Nurse 2 - General Ulcer CM Notes Start: 06/13/18 12:37 Freq: Status: Active Protocol: Activity Type Activity Date Activity User E-Sign Co-Sign Detail Recorded Client Recorded Date Recorded By Document 06/13/18 13:03 DV [id number] 06/13/18 13:15 DV 02/08/19 13:03 Wound Center Nurse 2 [Procedure/Treatment] -Time 13:04 -Correct Patient Yes -Correct Side, Site, Position Yes -Correct Procedure Yes -Procedure Performed Yes -Type of Procedure Debridement -Clinical Debridement Subcutaneous -Post Debridement Size (cm) - Length 13.6 -Post Debridement Size (cm) - Width 4.5 -Post Debridement Size (cm) - Depth 0.5 -Total Square Cm 61.20 -Wound/Ulcer Outcome Not Healed -Ulcer Cleansing Rinsed/ Irrigated with Saline -Foul Odor after Cleansing No -Bioengineered Tissue No -Bleeding Controlled with Pressure -Treatment Response Procedure Tolerated Well [See Physician Procedure note for Specifics] Pain Scale: 0-10 Numeric [Pain] -Is Patient Pain Free? Yes Psych/Mental Status: Normal Affect, Appropriate Debridement Note Post-Debridement Measurements/Treatment WC - Nurse 2 - General Ulcer CM Notes Start: 06/13/18 12:37 Freq: Status: Active Protocol: Activity Type Activity Date Activity User E-Sign Co-Sign Detail Recorded Client Recorded Date Recorded By Document 06/13/18 13:03 DV [id number] 06/13/18 13:15 DV 06/13/18 13:03 Wound Center Nurse 2 #9 Lower Lumbar- Midline -Time 13:04 -Correct Patient Yes -Correct Side, Site, Position Yes -Correct Procedure Yes -Procedure Performed Yes -Type of Procedure Debridement -Clinical Debridement Subcutaneous -Post Debridement Size (cm) - Length 13.6 -Post Debridement Size (cm) - Width 4.5 -Post Debridement Size (cm) - Depth 0.5 -Total Square Cm 61.20 -Wound/Ulcer Outcome Not Healed -Ulcer Cleansing Rinsed/ Irrigated with Saline -Foul Odor after Cleansing No -Bioengineered Tissue No -Bleeding Controlled with Pressure -Treatment Response Procedure Tolerated Well Pain Scale: 0-10 Numeric Is Patient Pain Free? Yes Wound debrided: lower lumbar midline Laterality: Not Applicable Type of Debridement: Excisional debridement Anesthesia Used: 4% Lidocaine Solution Depth: Down to and including healthy tissue, in the subcutaneous layer Percentage of wound debrided: 100 Instrument Used: 5mm curette Tissue Removed: yellow slough, devitalized tissue Severity: Fat Layer Exposed Amount of bleeding with debridement: Mild Bleeding Controlled with: Compression and gauze Patient tolerated procedure well Assessment/Plan Active Problems (Last Reviewed 11/19/17 @ 16:27 by Micky Mauro MD) Nonhealing surgical wound (Chronic) Open wound of lower back (Chronic) Chronic kidney disease (Chronic) Assessment: chronic surgical wound dehiscence lumbar with complex abscess and recent surgical debridement. malnutrition. other multiple comorbidities. edema bilateral lower extremities. Bleeding site from within wound controlled with combination of silver nitrate and Surgifoam. Bleeding appears to be controlled. venous insufficiency. immunocompromised status. Plan: Debridement done as documented above. Procedure was well-tolerated. Will continue to use Aquacel Extra and will use gauze and ABDs with changes once-twice daily as needed for drainage. Complete doxycycline for cellulitis left lower leg - which looks improved. CT lumbar spine was negative for abscess/cellulitis. Continue increased protein intake. F/U in [address] Wcik.
--- NOTE | 2018-06-13 17:54 | PN.PCM_ITS ---
(1) Nonhealing surgical wound Status: Chronic Current Visit: Yes Qualifiers: Encounter type: subsequent encounter Code(s): T81.89XA - Other complications of procedures, not elsewhere classified, initial encounter (2) Open wound of lower back Status: Chronic Current Visit: Yes Code(s): S31.000A - Unspecified open wound of lower back and pelvis without penetration into retroperitoneum, initial encounter (3) Chronic kidney disease Status: Chronic Current Visit: Yes Qualifiers: Chronic kidney disease stage: stage 3 (moderate) Code(s): N18.9 - Chronic kidney disease, unspecified Type of Wound Date of Service: 06/13/18 Chief Complaint: Nonhealing surgical wound of lower back History of Wound: Mr. Marshall is a 73-yo who has been seen here at the wound center for a nonhealing surgical wound of his lower back s/p surgical debridement for an abscess s/p lumbar spine surgery. His original surgery on his lower back was approximately 2016 and he has had multiple complications since that time. He underwent surgical debridement on 03/04/[address] Davila at [facility] in [place] and was discharged with a wound vac for healing by secondary intention with possible muscle flap closure in the future. He followed up with his surgeon on 04/18/17 for further evaluation and recommendations and they plan to close the wound with a muscle flap but he continues to develop infections. He is also being seen by Infectious Disease as needed. CT 02/2018 did not show any abscess. Progress of Wound: Cuong is here for follow-up of his nonhealing surgical wound of his lower back. His wound remains stable and continues to show mild improvement. He has been tolerating Aquacel extra and gauze and ABDs. He was hospitalized recently for CHF. He was seen by his PCP for follow up and started on doxycycline for cellulitis of his left leg surrounding an eschar that occurred while he was in the hospital due to lower extremity edema. He has had 10 applications of Purapply with mild improvement. He saw a plastic surgeon at [facility] [place] on 04/02/18 who is hopeful to close Cuong's surgical wound with a skin flap. He requested additional records of CT scans as well as information on radiation that was done previously. Cuong is scheduled to see the surgeon at [facility] this coming week. He has been having increased pain in his back and left leg presumably from nerve impingement which he had epidural injections done and did not get any relief from these. Denies increased drainage, odor, fever or chills. - Physical Exam Vital Signs Temp Pulse Resp BP 96.9 F L 91 18 139/67 H 06/13/18 12:39 06/13/18 12:39 06/13/18 12:39 06/13/18 12:39 General: Alert, Oriented x3, Cooperative, No apparent distress HEENT: Atraumatic, Normocephalic Oral: Moist Mucosa Extremities: Edema Skin: Ulcer/ Wound Wound Measurements and Assessment WC - Nurse 1 - General Ulcer Measurement Start: 06/13/18 12:37 Freq: Status: Active Protocol: Activity Type Activity Date Activity User E-Sign Co-Sign Detail Recorded Client Recorded Date Recorded By Document 06/13/18 12:39 [facility] [id number] 06/13/18 12:49 [facility] 06/13/18 12:39 Wound Center Nurse 1 [Ulcer Assessment] #9 Lower Lumbar- Midline -Combined with other wound No -Current Size (cm) - Length 14 -Current Size (cm) - Width 4.5 -Current Size (cm) - Depth 1.1 -Total Square Cm 63.0 -Photo Taken No -Epithelialization None Present -Tunneling No -Undermining/Tunneling No -Circular Undermining No -Exudate Amt Large -Exudate Type Serosanguineous -Wound Margin Thickened & Rolled Under -Granulation Amt Small (1-33%) -Granulation Quality [place] -Slough/Fibrin Yes -Necrosis Amt Large (67-100%) -Necrotic Tissue Type Adherent Slough -Texture (Uma-wound Skin Appearance) Assessed Scarring -Moisture (Uma-wound Skin Appearance Assessed ) Dry/Scaly -Color (Uma-wound Skin Appearance) Assessed -Temperature (Uma-wound Skin No Abnormality Appearance) (Pt Warm) -Tenderness on Palpation (Uma-wound No Skin Appearance) -Ulcer Cleansing Wound Cleanser -Foul Odor after Cleansing No -Anesthetic Used 4% Lidocaine Solution WC - Nurse 2 - General Ulcer CM Notes Start: 06/13/18 12:37 Freq: Status: Active Protocol: Activity Type Activity Date Activity User E-Sign Co-Sign Detail Recorded Client Recorded Date Recorded By Document 06/13/18 13:03 DV [id number] 06/13/18 13:15 DV 02/08/19 13:03 Wound Center Nurse 2 [Procedure/Treatment] -Time 13:04 -Correct Patient Yes -Correct Side, Site, Position Yes -Correct Procedure Yes -Procedure Performed Yes -Type of Procedure Debridement -Clinical Debridement Subcutaneous -Post Debridement Size (cm) - Length 13.6 -Post Debridement Size (cm) - Width 4.5 -Post Debridement Size (cm) - Depth 0.5 -Total Square Cm 61.20 -Wound/Ulcer Outcome Not Healed -Ulcer Cleansing Rinsed/ Irrigated with Saline -Foul Odor after Cleansing No -Bioengineered Tissue No -Bleeding Controlled with Pressure -Treatment Response Procedure Tolerated Well [See Physician Procedure note for Specifics] Pain Scale: 0-10 Numeric [Pain] -Is Patient Pain Free? Yes Psych/Mental Status: Normal Affect, Appropriate Debridement Note Post-Debridement Measurements/Treatment WC - Nurse 2 - General Ulcer CM Notes Start: 06/13/18 12:37 Freq: Status: Active Protocol: Activity Type Activity Date Activity User E-Sign Co-Sign Detail Recorded Client Recorded Date Recorded By Document 06/13/18 13:03 DV [id number] 06/13/18 13:15 DV 06/13/18 13:03 Wound Center Nurse 2 #9 Lower Lumbar- Midline -Time 13:04 -Correct Patient Yes -Correct Side, Site, Position Yes -Correct Procedure Yes -Procedure Performed Yes -Type of Procedure Debridement -Clinical Debridement Subcutaneous -Post Debridement Size (cm) - Length 13.6 -Post Debridement Size (cm) - Width 4.5 -Post Debridement Size (cm) - Depth 0.5 -Total Square Cm 61.20 -Wound/Ulcer Outcome Not Healed -Ulcer Cleansing Rinsed/ Irrigated with Saline -Foul Odor after Cleansing No -Bioengineered Tissue No -Bleeding Controlled with Pressure -Treatment Response Procedure Tolerated Well Pain Scale: 0-10 Numeric Is Patient Pain Free? Yes Wound debrided: lower lumbar midline Laterality: Not Applicable Type of Debridement: Excisional debridement Anesthesia Used: 4% Lidocaine Solution Depth: Down to and including healthy tissue, in the subcutaneous layer Percentage of wound debrided: 100 Instrument Used: 5mm curette Tissue Removed: yellow slough, devitalized tissue Severity: Fat Layer Exposed Amount of bleeding with debridement: Mild Bleeding Controlled with: Compression and gauze Patient tolerated procedure well Assessment/Plan Active Problems (Last Reviewed 11/19/17 @ 16:27 by Micky Mauro MD) Nonhealing surgical wound (Chronic) Open wound of lower back (Chronic) Chronic kidney disease (Chronic) Assessment: chronic surgical wound dehiscence lumbar with complex abscess and recent surgical debridement. malnutrition. other multiple comorbidities. edema bilateral lower extremities. Bleeding site from within wound controlled with combination of silver nitrate and Surgifoam. Bleeding appears to be controlled. venous insufficiency. immunocompromised status. Plan: Debridement done as documented above. Procedure was well-tolerated. Will continue to use Aquacel Extra and will use gauze and ABDs with changes once- twice daily as needed for drainage. Complete doxycycline for cellulitis left lower leg - which looks improved. CT lumbar spine was negative for abscess/cellulitis. Continue increased protein intake. F/U in [address] Wick.
[2018-06-27 12:36] VITALS: BP 146/83; PULSE 77; RESP 18; TEMP 36.2; BMI 31.1
--- NOTE | 2018-06-27 18:34 | PCM.WC.PN ---
(1) Nonhealing surgical wound Status: Chronic Current Visit: Yes Qualifiers: Encounter type: subsequent encounter Code(s): T81.89XA - Other complications of procedures, not elsewhere classified, initial encounter (2) Open wound of lower back Status: Chronic Current Visit: Yes Code(s): S31.000A - Unspecified open wound of lower back and pelvis without penetration into retroperitoneum, initial encounter (3) Chronic kidney disease Status: Chronic Current Visit: Yes Qualifiers: Code(s): N18.9 - Chronic kidney disease, unspecified Type of Wound Date of Service: 06/27/18 Chief Complaint: Nonhealing surgical wound of lower back History of Wound: Mr. Marshall is a 73-yo who has been seen here at the wound center for a nonhealing surgical wound of his lower back s/p surgical debridement for an abscess s/p lumbar spine surgery. His original surgery on his lower back was approximately 2015 and he has had multiple complications since that time. He underwent surgical debridement on 03/04/[address] Davila at [facility] in [place] and was discharged with a wound vac for healing by secondary intention with possible muscle flap closure in the future. He followed up with his surgeon on 04/18/17 for further evaluation and recommendations and they plan to close the wound with a muscle flap but he continues to develop infections. He is also being seen by Infectious Disease as needed. CT 02/2018 did not show any abscess. Progress of Wound: Cuong is here for follow-up of his nonhealing surgical wound of his lower back. His wound remains stable and continues to show mild improvement. He has been tolerating Aquacel extra and gauze and ABDs. He was hospitalized recently for CHF and respiratory failure from RSV. He has had 10 applications of Purapply with mild improvement. He saw a plastic surgeon at [facility] on 04/02/18 who is hopeful to close Cuong's surgical wound with a skin flap. He requested additional records of CT scans as well as information on radiation that was done previously. Cuong is scheduled to see the surgeon at [facility] this coming week. He has been having increased pain in his back and left leg presumably from nerve impingement. Denies increased drainage, odor, fever or chills. - Physical Exam Vital Signs Temp Pulse Resp BP 97.1 F L 77 18 146/83 H 06/27/18 12:36 06/27/18 12:36 06/27/18 12:36 06/27/18 12:36 General: Alert, Oriented x3, Cooperative, No apparent distress HEENT: Atraumatic, Normocephalic Oral: Moist Mucosa Skin: Ulcer/ Wound Wound Measurements and Assessment - Nurse 1 - General Ulcer Measurement Start: 06/13/18 12:37 Freq: Status: Active Protocol: Activity Type Activity Date Activity User E-Sign Co-Sign Detail Recorded Client Recorded Date Recorded By Document 06/27/18 12:36 [facility] [id number] 06/27/18 12:46 [facility] 06/27/18 12:36 Wound Center Nurse 1 [Ulcer Assessment] #9 Lower Lumbar- Midline -Combined with other wound No -Current Size (cm) - Length 13 -Current Size (cm) - Width 4.7 -Current Size (cm) - Depth 0.4 -Total Square Cm 61.1 -Date of Last Picture (Recall this 06/27/18 field) -Photo Taken Yes -Epithelialization None Present -Tunneling No -Undermining/Tunneling No -Circular Undermining No -Wound Margin Thickened & Rolled Under -Granulation Amt Small (1-33%) -Granulation Quality Red -Slough/Fibrin Yes -Necrosis Amt Medium (34-66%) -Necrotic Tissue Type Adherent Slough -Texture (Uma-wound Skin Appearance) Scarring Rash -Moisture (Uma-wound Skin Appearance Dry/Scaly ) -Color (Uma-wound Skin Appearance) Assessed Erythema -Temperature (Uma-wound Skin No Abnormality Appearance) (Pt Warm) -Tenderness on Palpation (Uma-wound Yes Skin Appearance) -Ulcer Cleansing Rinsed/ Irrigated with Saline -Foul Odor after Cleansing No -Anesthetic Used 4% Lidocaine Solution WC - Nurse 2 - General Ulcer CM Notes Start: 06/13/18 12:37 Freq: Status: Active Protocol: Activity Type Activity Date Activity User E-Sign Co-Sign Detail Recorded Client Recorded Date Recorded By Document 06/27/18 13:08 DV [id number] 06/27/18 13:45 DV 06/27/18 13:08 Wound Center Nurse 2 [Procedure/Treatment] -Time 13:35 -Correct Patient Yes -Correct Side, Site, Position Yes -Correct Procedure Yes -Procedure Performed Yes -Type of Procedure Debridement -Clinical Debridement Subcutaneous -Post Debridement Size (cm) - Length 13.2 -Post Debridement Size (cm) - Width 4.2 -Post Debridement Size (cm) - Depth 0.4 -Total Square Cm 55.44 -Wound/Ulcer Outcome Not Healed -Ulcer Cleansing Rinsed/ Irrigated with Saline -Foul Odor after Cleansing No -Bioengineered Tissue No -Bleeding Controlled with Pressure -Offloading No -Treatment Response Procedure Tolerated Well [See Physician Procedure note for Specifics] Pain Scale: 0-10 Numeric [Pain] -Is Patient Pain Free? Yes Psych/Mental Status: Normal Affect, Appropriate Debridement Note Post-Debridement Measurements/Treatment WC - Nurse 2 - General Ulcer CM Notes Start: 06/13/18 12:37 Freq: Status: Active Protocol: Activity Type Activity Date Activity User E-Sign Co-Sign Detail Recorded Client Recorded Date Recorded By Document 06/13/18 13:03 DV [id number] 06/13/18 13:15 DV Document 06/27/18 13:08 DV [id number] 06/27/18 13:45 DV 06/13/18 06/27/18 13:03 13:08 Wound Center Nurse 2 #9 Lower Lumbar- Midline -Time 13:04 13:35 -Correct Patient Yes Yes -Correct Side, Site, Position Yes Yes -Correct Procedure Yes Yes -Procedure Performed Yes Yes -Type of Procedure Debridement Debridement -Clinical Debridement Subcutaneous Subcutaneous -Post Debridement Size (cm) - Length 13.6 13.2 -Post Debridement Size (cm) - Width 4.5 4.2 -Post Debridement Size (cm) - Depth 0.5 0.4 -Total Square Cm 61.20 55.44 -Wound/Ulcer Outcome Not Healed Not Healed -Ulcer Cleansing Rinsed/ Rinsed/ Irrigated with Irrigated with Saline Saline -Foul Odor after Cleansing No No -Bioengineered Tissue No No -Bleeding Controlled with Pressure Pressure -Offloading No -Treatment Response Procedure Procedure Tolerated Well Tolerated Well Pain Scale: 0-10 Numeric Is Patient Pain Free? Yes Yes Wound debrided: lower lumbar midline Laterality: Not Applicable Type of Debridement: Excisional debridement Anesthesia Used: 4% Lidocaine Solution Depth: Down to and including healthy tissue, in the subcutaneous layer Percentage of wound debrided: 100 Instrument Used: 5mm curette Tissue Removed: yellow slough, devitalized tissue Severity: Fat Layer Exposed Amount of bleeding with debridement: Mild Bleeding Controlled with: Compression and gauze Patient tolerated procedure well Assessment/Plan Active Problems (Last Updated 06/16/18 @ 18:13 by Charisse Couch MD) Nonhealing surgical wound (Chronic) Open wound of lower back (Chronic) Chronic kidney disease (Chronic) Assessment: chronic surgical wound dehiscence lumbar with complex abscess and recent surgical debridement. malnutrition. other multiple comorbidities. edema bilateral lower extremities. Bleeding site from within wound controlled with combination of silver nitrate and Surgifoam. Bleeding appears to be controlled. venous insufficiency. immunocompromised status. Plan: Debridement done as documented above. Procedure was well-tolerated. Will continue to use Aquacel Extra and will use gauze and ABDs with changes once-twice daily as needed for drainage. CT lumbar spine was negative for abscess/cellulitis. Continue increased protein intake. F/U in [address] Wick.
--- NOTE | 2018-06-27 18:38 | PN.PCM_ITS ---
(1) Nonhealing surgical wound Status: Chronic Current Visit: Yes Qualifiers: Encounter type: subsequent encounter Code(s): T81.89XA - Other complications of procedures, not elsewhere classified, initial encounter (2) Open wound of lower back Status: Chronic Current Visit: Yes Code(s): S31.000A - Unspecified open wound of lower back and pelvis without penetration into retroperitoneum, initial encounter (3) Chronic kidney disease Status: Chronic Current Visit: Yes Qualifiers: Code(s): N18.9 - Chronic kidney disease, unspecified Type of Wound Date of Service: 06/27/18 Chief Complaint: Nonhealing surgical wound of lower back History of Wound: Mr. Marshall is a 73-yo who has been seen here at the wound center for a nonhealing surgical wound of his lower back s/p surgical debridement for an abscess s/p lumbar spine surgery. His original surgery on his lower back was approximately 2015 and he has had multiple complications since that time. He underwent surgical debridement on 03/04/[address] Davila at [facility] in [place] and was discharged with a wound vac for healing by secondary intention with possible muscle flap closure in the future. He followed up with h is surgeon on 04/18/17 for further evaluation and recommendations and they plan to close the wound with a muscle flap but he continues to develop infections. He is also being seen by Infectious Disease as needed. CT 02/2018 did not show any abscess. Progress of Wound: Cuong is here for follow-up of his nonhealing surgical wound of his lower back. His wound remains stable and continues to show mild improvement. He has been tolerating Aquacel extra and gauze and ABDs. He was hospitalized recently for CHF and respiratory failure from RSV. He has had 10 applications of Purapply with mild improvement. He saw a plastic surgeon at [facility] on 04/02/18 who is hopeful to close Cuong's surgical wound with a skin flap. He requested additional records of CT scans as well as information on radiation that was done previously. Cuong is scheduled to see the surgeon at [facility] this coming week. He has been having increased pain in his back and left leg presumably from nerve impingement. Denies increased drainage, odor, fever or chills. - Physical Exam Vital Signs Temp Pulse Resp BP 97.1 F L 77 18 146/83 H 06/27/18 12:36 06/27/18 12:36 06/27/18 12:36 06/27/18 12:36 General: Alert, Oriented x3, Cooperative, No apparent distress HEENT: Atraumatic, Normocephalic Oral: Moist Mucosa Skin: Ulcer/ Wound Wound Measurements and Assessment WC - Nurse 1 - General Ulcer Measurement Start: 06/13/18 12:37 Freq: Status: Active Protocol: Activity Type Activity Date Activity User E-Sign Co-Sign Detail Recorded Client Recorded Date Recorded By Document 06/27/18 12:36 [facility] [id number] 06/27/18 12:46 [facility] 06/27/18 12:36 Wound Center Nurse 1 [Ulcer Assessment] #9 Lower Lumbar- Midline -Combined with other wound No -Current Size (cm) - Length 13 -Current Size (cm) - Width 4.7 -Current Size (cm) - Depth 0.4 -Total Square Cm 61.1 -Date of Last Picture (Recall this 06/27/18 field) -Photo Taken Yes -Epithelialization None Present -Tunneling No -Undermining/Tunneling No -Circular Undermining No -Wound Margin Thickened & Rolled Under -Granulation Amt Small (1-33%) -Granulation Quality Red -Slough/Fibrin Yes -Necrosis Amt Medium (34-66%) -Necrotic Tissue Type Adherent Slough -Texture (Uma-wound Skin Appearance) Scarring Rash -Moisture (Uma-wound Skin Appearance Dry/Scaly ) -Color (Uma-wound Skin Appearance) Assessed Erythema -Temperature (Uam-wound Skin No Abnormality Appearance) (Pt Warm) -Tenderness on Palpation (Uma-wound Yes Skin Appearance) -Ulcer Cleansing Rinsed/ Irrigated with Saline -Foul Odor after Cleansing No -Anesthetic Used 4% Lidocaine Solution WC - Nurse 2 - General Ulcer CM Notes Start: 06/13/18 12:37 Freq: Status: Active Protocol: Activity Type Activity Date Activity User E-Sign Co-Sign Detail Recorded Client Recorded Date Recorded By Document 06/27/18 13:08 DV [id number] 06/27/18 13:45 DV 06/27/18 13:08 Wound Center Nurse 2 [Procedure/Treatment] -Time 13:35 -Correct Patient Yes -Correct Side, Site, Position Yes -Correct Procedure Yes -Procedure Performed Yes -Type of Procedure Debridement -Clinical Debridement Subcutaneous -Post Debridement Size (cm) - Length 13.2 -Post Debridement Size (cm) - Width 4.2 -Post Debridement Size (cm) - Depth 0.4 -Total Square Cm 55.44 -Wound/Ulcer Outcome Not Healed -Ulcer Cleansing Rinsed/ Irrigated with Saline -Foul Odor after Cleansing No -Bioengineered Tissue No -Bleeding Controlled with Pressure -Offloading No -Treatment Response Procedure Tolerated Well [See Physician Procedure note for Specifics] Pain Scale: 0-10 Numeric [Pain] -Is Patient Pain Free? Yes Psych/Mental Status: Normal Affect, Appropriate Debridement Note Post-Debridement Measurements/Treatment WC - Nurse 2 - General Ulcer CM Notes Start: 06/13/18 12:37 Freq: Status: Active Protocol: Activity Type Activity Date Activity User E-Sign Co-Sign Detail Recorded Client Recorded Date Recorded By Document 06/13/18 13:03 DV [id number] 06/13/18 13:15 DV Document 06/27/18 13:08 DV [id number] 06/27/18 13:45 DV 06/13/18 06/27/18 13:03 13:08 Wound Center Nurse 2 #9 Lower Lumbar- Midline -Time 13:04 13:35 -Correct Patient Yes Yes -Correct Side, Site, Position Yes Yes -Correct Procedure Yes Yes -Procedure Performed Yes Yes -Type of Procedure Debridement Debridement -Clinical Debridement Subcutaneous Subcutaneous -Post Debridement Size (cm) - Length 13.6 13.2 -Post Debridement Size (cm) - Width 4.5 4.2 -Post Debridement Size (cm) - Depth 0.5 0.4 -Total Square Cm 61.20 55.44 -Wound/Ulcer Outcome Not Healed Not Healed -Ulcer Cleansing Rinsed/ Rinsed/ Irrigated with Irrigated with Saline Saline -Foul Odor after Cleansing No No -Bioengineered Tissue No No -Bleeding Controlled with Pressure Pressure -Offloading No -Treatment Response Procedure Procedure Tolerated Well Tolerated Well Pain Scale: 0-10 Numeric Is Patient Pain Free? Yes Yes Wound debrided: lower lumbar midline Laterality: Not Applicable Type of Debridement: Excisional debridement Anesthesia Used: 4% Lidocaine Solution Depth: Down to and including healthy tissue, in the subcutaneous layer Percentage of wound debrided: 100 Instrument Used: 5mm curette Tissue Removed: yellow slough, devitalized tissue Severity: Fat Layer Exposed Amount of bleeding with debridement: Mild Bleeding Controlled with: Compression and gauze Patient tolerated procedure well Assessment/Plan Active Problems (Last Updated 06/16/18 @ 18:13 by Charisse Couch MD) Nonhealing surgical wound (Chronic) Open wound of lower back (Chronic) Chronic kidney disease (Chronic) Assessment: chronic surgical wound dehiscence lumbar with complex abscess and recent surgical debridement. malnutrition. other multiple comorbidities. edema bilateral lower extremities. Bleeding site from within wound controlled with combination of silver nitrate and Surgifoam. Bleeding appears to be controlled. venous insufficiency. immunocompromised status. Plan: Debridement done as documented above. Procedure was well-tolerated. Will continue to use Aquacel Extra and will use gauze and ABDs with changes once- twice daily as needed for drainage. CT lumbar spine was negative for abscess/cellulitis. Continue increased protein intake. F/U in [address] Wick.
== END 2018-07-03 23:59 ==
LOC: WC 12:30
PROVIDERS: Family Provider Family Medicine; PCP Family Medicine; Referring Provider Family Medicine; Visit Provider Family Medicine
DX: T81.30XA Disruption of wound, unspecified, initial encounter (principal); L03.312 Cellulitis of back [any part except buttock and flank]; Y83.8 Other surgical procedures as the cause of abnormal reaction of the patient, or of later complication, without mention of misadventure at the time of the procedure; I87.2 Venous insufficiency (chronic) (peripheral); B99.8 Other infectious disease; N18.3 Chronic kidney disease, stage 3 (moderate)
CPT/HCPCS: 11042; 11045

== ENCOUNTER → 2018-07-07 10:44 | Outpatient (CLI) | payer MEDICARE, OTHER, SELFPAY ==
[2015-10-31 10:00] VITALS: BMI 34.9
[2018-06-23 11:42] VITALS: BMI 28.3
[2018-07-04 12:50] VITALS: BMI 31.1
[2018-07-07 10:53] VITALS: BP 128/63; PULSE 84; RESP 16; TEMP 35.8; O2SAT 93; BMI 28.5
[2018-07-07 11:19] LABS: Hematocrit 30.8 % (40-54); Hemoglobin 9.5 g/dl (13.0-16.5)
== END ==
PROVIDERS: Family Provider Family Medicine; PCP Family Medicine; Referring Provider Internal Medicine Nephrology; Visit Provider Internal Medicine Nephrology
DX: N18.3 Chronic kidney disease, stage 3 (moderate) (principal); D63.1 Anemia in chronic kidney disease
CPT/HCPCS: 36415; 85014; 85018; 96372; J0885

== ENCOUNTER → 2018-07-21 10:54 | Outpatient (CLI) | payer MEDICARE, OTHER, SELFPAY ==
[2015-10-31 10:00] VITALS: BMI 34.9
[2018-07-07 10:53] VITALS: BMI 28.5
[2018-07-18 12:44] VITALS: BP 146/79; PULSE 89; RESP 18; TEMP 36.4; BMI 28.7
[2018-07-21 11:19] LABS: Hematocrit 30.2 % (40-54); Hemoglobin 9.2 g/dl (13.0-16.5)
[2018-07-21 11:31] LABS: BUN 33 mg/dL (7-18); Creatinine, Serum 1.48 mg/dL (0.70-1.30); EST Glomerular Filtration Rate 49 mL/min (>60); Estimated Creatinine Clearance 42.36 ml/min; Glucose 110 mg/dL (74-106)
[2018-07-21 11:32] LABS: Albumin, Serum 2.5 g/dL (3.2-5.0); BUN/Creat Ratio 22.3 RATIO (10-20); Calcium,Total 8.1 mg/dL (8.5-10.1); Chloride 98 mmol/L (98-107); Est Glom Filt Rate - Afr Amer 60 mL/min (>60); Phosphorus 3.2 mg/dL (2.5-4.9); Potassium 3.4 mmol/L (3.5-5.1); Sodium Level 137 mmol/L (136-145)
[2018-07-21 11:54] VITALS: BP 123/56; PULSE 73; RESP 18; TEMP 36.4; O2SAT 91; BMI 28.7
== END ==
PROVIDERS: Family Provider Family Medicine; PCP Family Medicine; Referring Provider Internal Medicine Nephrology; Visit Provider Internal Medicine Nephrology
DX: N18.3 Chronic kidney disease, stage 3 (moderate) (principal); D63.1 Anemia in chronic kidney disease
CPT/HCPCS: 36415; 80069; 85014; 85018; 96372; J0885

== ENCOUNTER 2018-08-01 12:45 | Outpatient (RCR) | payer MEDICARE, OTHER, SELFPAY ==
[2015-10-31 10:00] VITALS: BMI 34.9
[2018-07-04 00:50] VITALS: BP 146/83; PULSE 77; RESP 18; TEMP 36.2
[2018-07-04 12:50] VITALS: BP 112/56; PULSE 83; RESP 16; TEMP 37.1; BMI 31.1
--- NOTE | 2018-07-04 18:22 | PN.PCM_ITS ---
(1) Nonhealing surgical wound Status: Chronic Current Visit: Yes Qualifiers: Encounter type: subsequent encounter Code(s): T81.89XA - Other complications of procedures, not elsewhere classified, initial encounter (2) Open wound of lower back Status: Chronic Current Visit: Yes Code(s): S31.000A - Unspecified open wound of lower back and pelvis without penetration into retroperitoneum, initial encounter Type of Wound Date of Service: 07/04/18 Chief Complaint: Nonhealing surgical wound of lower back History of Wound: Mr. Marshall is a 73-yo who has been seen here at the wound center for a nonhealing surgical wound of his lower back s/p surgical debridement for an abscess s/p lumbar spine surgery. His original surgery on his lower back was approximately 2016 and he has had multiple complications since that time. He underwent surgical debridement on 03/04/[address] Davila at [facility] in [place] and was discharged with a wound vac for healing by secondary intention with possible muscle flap closure in the future. He followed up with his surgeon on 04/18/17 for further evaluation and recommendations and they plan to close the wound with a muscle flap but he continues to develop infections. He is also being seen by Infectious Disease as needed. CT 02/2018 did not show any abscess. Progress of Wound: Cuong is here for follow-up of his nonhealing surgical wound of his lower back. His wound remains stable and continues to show mild improvement. He has been tolerating Aquacel extra and gauze and ABDs. He has had 10 applications of Purapply with mild improvement. He saw a plastic surgeon at [facility] on 04/02/18 who is hopeful to close Cuong's surgical wound with a skin flap. He requested additional records of CT scans as well as information on radiation that was done previously. Cuong is scheduled to see the surgeon at [facility]. He has been having increased pain in his back and left leg presumably from nerve impingement. Denies increased drainage, odor, fever or chills. - Physical Exam Vital Signs Temp Pulse Resp BP 98.7 F 83 16 112/56 L 07/04/18 12:50 07/04/18 12:50 07/04/18 12:50 07/04/18 12:50 General: Alert, Oriented x3, Cooperative, No apparent distress HEENT: Atraumatic, Normocephalic Oral: Moist Mucosa Skin: Ulcer/ Wound Wound Measurements and Assessment WC - Nurse 1 - General Ulcer Measurement Start: 07/04/18 12:50 Freq: Status: Active Protocol: Activity Type Activity Date Activity User E-Sign Co-Sign Detail Recorded Client Recorded Date Recorded By Document 07/04/18 12:50 [facility] [id number] 07/04/18 12:59 [facility] 07/04/18 12:50 Wound Center Nurse 1 [Ulcer Assessment] #9 Lower Lumbar- Midline -Combined with other wound No -Current Size (cm) - Length 14 -Current Size (cm) - Width 4.5 -Current Size (cm) - Depth 1.7 -Total Square Cm 63.0 -Date of Last Picture (Recall this 07/04/18 field) -Photo Taken Yes -Epithelialization None Present -Tunneling No -Undermining/Tunneling No -Circular Undermining No -Exudate Amt Large -Exudate Type Serosanguineous -Wound Margin Thickened & Rolled Under -Granulation Amt Small (1-33%) -Granulation Quality [place] -Slough/Fibrin Yes -Necrosis Amt Large (67-100%) -Necrotic Tissue Type Adherent Slough -Texture (Uma-wound Skin Appearance) Scarring -Moisture (Uma-wound Skin Appearance Assessed ) -Color (Uma-wound Skin Appearance) Assessed -Temperature (Uma-wound Skin No Abnormality Appearance) (Pt Warm) -Tenderness on Palpation (Uma-wound Yes Skin Appearance) -Ulcer Cleansing Rinsed/ Irrigated with Saline -Foul Odor after Cleansing No -Anesthetic Used 4% Lidocaine Solution WC - Nurse 2 - General Ulcer CM Notes Start: 07/04/18 12:50 Freq: Status: Active Protocol: Activity Type Activity Date Activity User E-Sign Co-Sign Detail Recorded Client Recorded Date Recorded By Document 07/04/18 13:54 DV [id number] 07/04/18 14:02 DV 07/04/18 13:54 Wound Center Nurse 2 [Procedure/Treatment] -Time 13:55 -Correct Patient Yes -Correct Side, Site, Position Yes -Correct Procedure Yes -Procedure Performed Yes -Type of Procedure Debridement -Clinical Debridement Subcutaneous -Post Debridement Size (cm) - Length 13.3 -Post Debridement Size (cm) - Width 4.3 -Post Debridement Size (cm) - Depth 0.4 -Total Square Cm 57.19 -Wound/Ulcer Outcome Not Healed -Ulcer Cleansing Rinsed/ Irrigated with Saline -Foul Odor after Cleansing No -Bioengineered Tissue No -Bleeding Controlled with Pressure -Offloading No -Treatment Response Procedure Tolerated Well [See Physician Procedure note for Specifics] Pain Scale: 0-10 Numeric [Pain] -Is Patient Pain Free? Yes Psych/Mental Status: Normal Affect, Appropriate Debridement Note Post-Debridement Measurements/Treatment WC - Nurse 2 - General Ulcer CM Notes Start: 07/04/18 12:50 Freq: Status: Active Protocol: Activity Type Activity Date Activity User E-Sign Co-Sign Detail Recorded Client Recorded Date Recorded By Document 07/04/18 13:54 DV [id number] 07/04/18 14:02 DV 07/04/18 13:54 Wound Center Nurse 2 #9 Lower Lumbar- Midline -Time 13:55 -Correct Patient Yes -Correct Side, Site, Position Yes -Correct Procedure Yes -Procedure Performed Yes -Type of Procedure Debridement -Clinical Debridement Subcutaneous -Post Debridement Size (cm) - Length 13.3 -Post Debridement Size (cm) - Width 4.3 -Post Debridement Size (cm) - Depth 0.4 -Total Square Cm 57.19 -Wound/Ulcer Outcome Not Healed -Ulcer Cleansing Rinsed/ Irrigated with Saline -Foul Odor after Cleansing No -Bioengineered Tissue No -Bleeding Controlled with Pressure -Offloading No -Treatment Response Procedure Tolerated Well Pain Scale: 0-10 Numeric Is Patient Pain Free? Yes Wound debrided: lower lumbar midline Laterality: Not Applicable Type of Debridement: Excisional debridement Anesthesia Used: 4% Lidocaine Solution Depth: Down to and including healthy tissue, in the subcutaneous layer Percentage of wound debrided: 100 Instrument Used: 5mm curette Tissue Removed: yellow slough, devitalized tissue Severity: Fat Layer Exposed Amount of bleeding with debridement: Mild Bleeding Controlled with: Compression and gauze Patient tolerated procedure well Assessment/Plan Active Problems (Last Updated 06/16/18 @ 18:13 by Charisse Couch MD) Nonhealing surgical wound (Chronic) Open wound of lower back (Chronic) Assessment: chronic surgical wound dehiscence lumbar with complex abscess and recent surgical debridement. malnutrition. other multiple comorbidities. edema bilateral lower extremities. Bleeding site from within wound controlled with combination of silver nitrate and Surgifoam. Bleeding appears to be controlled. venous insufficiency. immunocompromised status. Plan: Debridement done as documented above. Procedure was well-tolerated. Will continue to use Aquacel Extra and will use gauze and ABDs with changes once- twice daily as needed for drainage. CT lumbar spine was negative for abscess/cellulitis. Continue increased protein intake. F/U in [address] Wick.
[2018-07-11 12:58] VITALS: BP 124/69; PULSE 92; RESP 16; TEMP 35.7; BMI 31.1
--- NOTE | 2018-07-11 17:22 | PCM.WC.PN ---
(1) Nonhealing surgical wound Status: Chronic Current Visit: Yes Qualifiers: Encounter type: subsequent encounter Code(s): T81.89XA - Other complications of procedures, not elsewhere classified, initial encounter (2) Open wound of lower back Status: Chronic Current Visit: Yes Code(s): S31.000A - Unspecified open wound of lower back and pelvis without penetration into retroperitoneum, initial encounter Type of Wound Date of Service: 07/11/18 Chief Complaint: Nonhealing surgical wound of lower back History of Wound: Mr. Marshall is a 73-yo who has been seen here at the wound center for a nonhealing surgical wound of his lower back s/p surgical debridement for an abscess s/p lumbar spine surgery. His original surgery on his lower back was approximately 2016 and he has had multiple complications since that time. He underwent surgical debridement on 03/04/[address] Davila at [facility] in [place] and was discharged with a wound vac for healing by secondary intention with possible muscle flap closure in the future. He followed up with his surgeon on 04/18/17 for further evaluation and recommendations and they plan to close the wound with a muscle flap but he continues to develop infections. He is also being seen by Infectious Disease as needed. CT 02/2018 did not show any abscess. Progress of Wound: Cuong is here for follow-up of his nonhealing surgical wound of his lower back. His wound remains stable and continues to show mild improvement. He has been tolerating Aquacel extra and gauze and ABDs. He has had 10 applications of Purapply with mild improvement. He saw a plastic surgeon at [facility] on 04/02/18 who is hopeful to close Cuong's surgical wound with a skin flap. He requested additional records of CT scans as well as information on radiation that was done previously. Cuong is scheduled to see the surgeon at [facility]. He has been having increased pain in his back and left leg presumably from nerve impingement. Denies increased drainage, odor, fever or chills. - Physical Exam Vital Signs Temp Pulse Resp BP 96.2 F L 92 16 124/69 H 07/11/18 12:58 07/11/18 12:58 07/11/18 12:58 07/11/18 12:58 General: Alert, Oriented x3, Cooperative, No apparent distress HEENT: Atraumatic, Normocephalic Oral: Moist Mucosa Skin: Ulcer/ Wound Wound Measurements and Assessment WC - Nurse 1 - General Ulcer Measurement Start: 07/04/18 12:50 Freq: Status: Active Protocol: Activity Type Activity Date Activity User E-Sign Co-Sign Detail Recorded Client Recorded Date Recorded By Document 07/11/18 12:58 [facility] [id number] 07/11/18 13:03 [facility] 07/11/18 12:58 Wound Center Nurse 1 [Ulcer Assessment] #9 Lower Lumbar- Midline -Combined with other wound No -Current Size (cm) - Length 14.1 -Current Size (cm) - Width 4.5 -Current Size (cm) - Depth 0.2 -Total Square Cm 63.45 -Photo Taken No -Tunneling No -Undermining/Tunneling No -Circular Undermining No -Exudate Amt Medium -Exudate Type Serosanguineous -Wound Margin Thickened & Rolled Under -Granulation Amt Small (1-33%) -Granulation Quality [place] -Necrosis Amt Large (67-100%) -Necrotic Tissue Type Adherent Slough -Structure Exposed Muscle -Texture (Uma-wound Skin Appearance) Assessed -Moisture (Uma-wound Skin Appearance Assessed ) -Color (Uma-wound Skin Appearance) Assessed -Temperature (Uma-wound Skin No Abnormality Appearance) (Pt Warm) -Tenderness on Palpation (Uma-wound No Skin Appearance) -Ulcer Cleansing Wound Cleanser -Foul Odor after Cleansing No -Anesthetic Used 4% Lidocaine Solution [Edema Assessment] -Lower Limb Edema Present NA WC - Nurse 2 - General Ulcer CM Notes Start: 07/04/18 12:50 Freq: Status: Active Protocol: Activity Type Activity Date Activity User E-Sign Co-Sign Detail Recorded Client Recorded Date Recorded By Document 07/11/18 13:41 DV [id number] 07/11/18 14:01 DV 07/11/18 13:41 Wound Center Nurse 2 [Procedure/Treatment] #9 Lower Lumbar- Midline -Time 13:42 -Correct Patient Yes -Correct Side, Site, Position Yes -Correct Procedure Yes -Procedure Performed Yes -Type of Procedure Debridement -Clinical Debridement Subcutaneous -Post Debridement Size (cm) - Length 13.3 -Post Debridement Size (cm) - Width 4.3 -Post Debridement Size (cm) - Depth 0.4 -Total Square Cm 57.19 -Wound/Ulcer Outcome Not Healed -Ulcer Cleansing Rinsed/ Irrigated with Saline -Foul Odor after Cleansing No -Bleeding Controlled with Pressure -Offloading No -Treatment Response Procedure Tolerated Well [See Physician Procedure note for Specifics] Pain Scale: 0-10 Numeric [Pain] -Is Patient Pain Free? Yes Psych/Mental Status: Normal Affect, Appropriate Debridement Note Post-Debridement Measurements/Treatment WC - Nurse 2 - General Ulcer CM Notes Start: 07/04/18 12:50 Freq: Status: Active Protocol: Activity Type Activity Date Activity User E-Sign Co-Sign Detail Recorded Client Recorded Date Recorded By Document 07/04/18 13:54 DV [id number] 07/04/18 14:02 DV Document 07/11/18 13:41 DV [id number] 07/11/18 14:01 DV 07/04/18 07/11/18 13:54 13:41 Wound Center Nurse 2 #9 Lower Lumbar- Midline -Time 13:55 13:42 -Correct Patient Yes Yes -Correct Side, Site, Position Yes Yes -Correct Procedure Yes Yes -Procedure Performed Yes Yes -Type of Procedure Debridement Debridement -Clinical Debridement Subcutaneous Subcutaneous -Post Debridement Size (cm) - Length 13.3 13.3 -Post Debridement Size (cm) - Width 4.3 4.3 -Post Debridement Size (cm) - Depth 0.4 0.4 -Total Square Cm 57.19 57.19 -Wound/Ulcer Outcome Not Healed Not Healed -Ulcer Cleansing Rinsed/ Rinsed/ Irrigated with Irrigated with Saline Saline -Foul Odor after Cleansing No No -Bioengineered Tissue No -Bleeding Controlled with Pressure Pressure -Offloading No No -Treatment Response Procedure Procedure Tolerated Well Tolerated Well Pain Scale: 0-10 Numeric Is Patient Pain Free? Yes Yes Wound debrided: Lower lumbar midline Laterality: Not Applicable Type of Debridement: Excisional debridement Anesthesia Used: 4% Lidocaine Solution Depth: Down to and including healthy tissue, in the subcutaneous layer Percentage of wound debrided: 100 Instrument Used: 5mm curette Tissue Removed: yellow slough, devitalized tissue Severity: Fat Layer Exposed Amount of bleeding with debridement: Mild Bleeding Controlled with: Compression and gauze Patient tolerated procedure well Assessment/Plan Active Problems (Last Updated 06/16/18 @ 18:13 by Charisse Couch MD) Nonhealing surgical wound (Chronic) Open wound of lower back (Chronic) Assessment: chronic surgical wound dehiscence lumbar with complex abscess and recent surgical debridement. malnutrition. other multiple comorbidities. edema bilateral lower extremities. Bleeding site from within wound controlled with combination of silver nitrate and Surgifoam. Bleeding appears to be controlled. venous insufficiency. immunocompromised status. Plan: Debridement done as documented above. Procedure was well-tolerated. Will continue to use Aquacel Extra and will use gauze and ABDs with changes once-twice daily as needed for drainage. CT lumbar spine was negative for abscess/cellulitis. Continue increased protein intake. F/U in [address] Wick.
--- NOTE | 2018-07-18 17:05 | PCM.WC.PN ---
(1) Nonhealing surgical wound Status: Chronic Current Visit: Yes Qualifiers: Encounter type: subsequent encounter Code(s): T81.89XA - Other complications of procedures, not elsewhere classified, initial encounter (2) Open wound of lower back Status: Chronic Current Visit: Yes Code(s): S31.000A - Unspecified open wound of lower back and pelvis without penetration into retroperitoneum, initial encounter Type of Wound Date of Service: 07/18/18 Chief Complaint: Nonhealing surgical wound of lower back History of Wound: Mr. Marshall is a 73-yo who has been seen here at the wound center for a nonhealing surgical wound of his lower back s/p surgical debridement for an abscess s/p lumbar spine surgery. His original surgery on his lower back was approximately 2016 and he has had multiple complications since that time. He underwent surgical debridement on 03/04/[address] Davila at [facility] in [place] and was discharged with a wound vac for healing by secondary intention with possible muscle flap closure in the future. He followed up with his surgeon on 04/18/17 for further evaluation and recommendations and they plan to close the wound with a muscle flap but he continues to develop infections. He is also being seen by Infectious Disease as needed. CT 02/2018 did not show any abscess. Progress of Wound: Cuong is here for follow-up of his nonhealing surgical wound of his lower back. His wound remains stable and continues to show mild improvement. He has been tolerating Aquacel extra and gauze and ABDs. He has had 10 applications of Purapply with mild improvement. He saw a plastic surgeon at [facility] on 04/02/18 who is hopeful to close Cuong's surgical wound with a skin flap. He requested additional records of CT scans as well as information on radiation that was done previously. Cuong is scheduled to see the surgeon at [facility] again on August 27, 2018. He has been having increased pain in his back and left leg presumably from nerve impingement. Denies increased drainage, odor, fever or chills. - Physical Exam Vital Signs Temp Pulse Resp BP 96.2 F L 92 16 124/69 H 07/11/18 12:58 07/11/18 12:58 07/11/18 12:58 07/11/18 12:58 General: Alert, Oriented x3, Cooperative, No apparent distress HEENT: Atraumatic, Normocephalic Oral: Moist Mucosa Skin: Ulcer/ Wound Wound Measurements and Assessment WC - Nurse 2 - General Ulcer CM Notes Start: 07/04/18 12:50 Freq: Status: Active Protocol: Activity Type Activity Date Activity User E-Sign Co-Sign Detail Recorded Client Recorded Date Recorded By Document 07/18/18 13:16 DV [id number] 07/18/18 13:28 DV 07/18/18 13:16 Wound Center Nurse 2 [Procedure/Treatment] #9 Lower Lumbar- Midline -Time 13:17 -Correct Patient Yes -Correct Side, Site, Position Yes -Correct Procedure Yes -Procedure Performed Yes -Type of Procedure Debridement -Clinical Debridement Subcutaneous -Post Debridement Size (cm) - Length 13.3 -Post Debridement Size (cm) - Width 4.3 -Post Debridement Size (cm) - Depth 0.4 -Total Square Cm 57.19 -Wound/Ulcer Outcome Amputation -Ulcer Cleansing Rinsed/ Irrigated with Saline -Foul Odor after Cleansing No -Bioengineered Tissue No -Bleeding Controlled with Pressure -Offloading No -Treatment Response Procedure Tolerated Well [See Physician Procedure note for Specifics] Pain Scale: 0-10 Numeric [Pain] -Is Patient Pain Free? Yes Psych/Mental Status: Normal Affect, Appropriate Debridement Note Post-Debridement Measurements/Treatment WC - Nurse 2 - General Ulcer CM Notes Start: 07/04/18 12:50 Freq: Status: Active Protocol: Activity Type Activity Date Activity User E-Sign Co-Sign Detail Recorded Client Recorded Date Recorded By Document 07/04/18 13:54 DV [id number] 07/04/18 14:02 DV Document 07/11/18 13:41 DV [id number] 07/11/18 14:01 DV Document 07/18/18 13:16 DV [id number] 07/18/18 13:28 DV 07/04/18 07/11/18 07/18/18 13:54 13:41 13:16 Wound Center Nurse 2 #9 Lower Lumbar- Midline -Time 13:55 13:42 13:17 -Correct Patient Yes Yes Yes -Correct Side, Site, Position Yes Yes Yes -Correct Procedure Yes Yes Yes -Procedure Performed Yes Yes Yes -Type of Procedure Debridement Debridement Debridement -Clinical Debridement Subcutaneous Subcutaneous Subcutaneous -Post Debridement Size (cm) - Length 13.3 13.3 13.3 -Post Debridement Size (cm) - Width 4.3 4.3 4.3 -Post Debridement Size (cm) - Depth 0.4 0.4 0.4 -Total Square Cm 57.19 57.19 57.19 -Wound/Ulcer Outcome Not Healed Not Healed Amputation -Ulcer Cleansing Rinsed/ Rinsed/ Rinsed/ Irrigated with Irrigated with Irrigated with Saline Saline Saline -Foul Odor after Cleansing No No No -Bioengineered Tissue No No -Bleeding Controlled with Pressure Pressure Pressure -Offloading No No No -Treatment Response Procedure Procedure Procedure Tolerated Well Tolerated Well Tolerated Well Pain Scale: 0-10 Numeric Is Patient Pain Free? Yes Yes Yes Wound debrided: lower lumbar midline Laterality: Not Applicable Type of Debridement: Excisional debridement Anesthesia Used: 4% Lidocaine Solution Depth: Down to and including healthy tissue, in the subcutaneous layer Percentage of wound debrided: 100 Instrument Used: 5mm curette Tissue Removed: yellow slough, devitalized tissue Severity: Fat Layer Exposed Amount of bleeding with debridement: Mild Bleeding Controlled with: Compression and gauze Patient tolerated procedure well Assessment/Plan Active Problems (Last Updated 06/16/18 @ 18:13 by Charisse Couch MD) Nonhealing surgical wound (Chronic) Open wound of lower back (Chronic) Assessment: chronic surgical wound dehiscence lumbar with complex abscess and recent surgical debridement. malnutrition. other multiple comorbidities. edema bilateral lower extremities. Bleeding site from within wound controlled with combination of silver nitrate and Surgifoam. Bleeding appears to be controlled. venous insufficiency. immunocompromised status. Plan: Debridement done as documented above. Procedure was well-tolerated. Will continue to use Aquacel Extra and will use gauze and ABDs with changes once-twice daily as needed for drainage. CT lumbar spine was negative for abscess/cellulitis. Continue increased protein intake. F/U in [address] Wick.
--- NOTE | 2018-07-18 17:08 | PN.PCM_ITS ---
(1) Nonhealing surgical wound Status: Chronic Current Visit: Yes Qualifiers: Encounter type: subsequent encounter Code(s): T81.89XA - Other complications of procedures, not elsewhere classified, initial encounter (2) Open wound of lower back Status: Chronic Current Visit: Yes Code(s): S31.000A - Unspecified open wound of lower back and pelvis without penetration into retroperitoneum, initial encounter Type of Wound Date of Service: 07/18/18 Chief Complaint: Nonhealing surgical wound of lower back History of Wound: Mr. Marshall is a 73-yo who has been seen here at the wound center for a nonhealing surgical wound of his lower back s/p surgical debridement for an abscess s/p lumbar spine surgery. His original surgery on his lower back was approximately 2016 and he has had multiple complications since that time. He underwent surgical debridement on 03/04/[address] Davila at [facility] in [place] and was discharged with a wound vac for healing by secondary intention with possible muscle flap closure in the future. He followed up with his surgeon on 04/18/17 for further evaluation and recommendations and they plan to close the wound with a muscle flap but he continues to develop infections. He is also being seen by Infectious Disease as needed. CT 02/2018 did not show any abscess. Progress of Wound: Cuong is here for follow-up of his nonhealing surgical wound of his lower back. His wound remains stable and continues to show mild improvement. He has been tolerating Aquacel extra and gauze and ABDs. He has had 10 applications of Purapply with mild improvement. He saw a plastic surgeon at [facility] on 04/02/18 who is hopeful to close Cuong's surgical wound with a skin flap. He requested additional records of CT scans as well as information on radiation that was done previously. Cuong is scheduled to see the surgeon at [facility] again on August 27, 2018. He has been having increased pain in his back and left leg presumably from nerve impingement. Denies increased drainage, odor, fever or chills. - Physical Exam Vital Signs Temp Pulse Resp BP 96.2 F L 92 16 124/69 H 07/11/18 12:58 07/11/18 12:58 07/11/18 12:58 07/11/18 12:58 General: Alert, Oriented x3, Cooperative, No apparent distress HEENT: Atraumatic, Normocephalic Oral: Moist Mucosa Skin: Ulcer/ Wound Wound Measurements and Assessment WC - Nurse 2 - General Ulcer CM Notes Start: 07/04/18 12:50 Freq: Status: Active Protocol: Activity Type Activity Date Activity User E-Sign Co-Sign Detail Recorded Client Recorded Date Recorded By Document 07/18/18 13:16 DV [id number] 07/18/18 13:28 DV 07/18/18 13:16 Wound Center Nurse 2 [Procedure/Treatment] #9 Lower Lumbar- Midline -Time 13:17 -Correct Patient Yes -Correct Side, Site, Position Yes -Correct Procedure Yes -Procedure Performed Yes -Type of Procedure Debridement -Clinical Debridement Subcutaneous -Post Debridement Size (cm) - Length 13.3 -Post Debridement Size (cm) - Width 4.3 -Post Debridement Size (cm) - Depth 0.4 -Total Square Cm 57.19 -Wound/Ulcer Outcome Amputation -Ulcer Cleansing Rinsed/ Irrigated with Saline -Foul Odor after Cleansing No -Bioengineered Tissue No -Bleeding Controlled with Pressure -Offloading No -Treatment Response Procedure Tolerated Well [See Physician Procedure note for Specifics] Pain Scale: 0-10 Numeric [Pain] -Is Patient Pain Free? Yes Psych/Mental Status: Normal Affect, Appropriate Debridement Note Post-Debridement Measurements/Treatment WC - Nurse 2 - General Ulcer CM Notes Start: 07/04/18 12:50 Freq: Status: Active Protocol: Activity Type Activity Date Activity User E-Sign Co-Sign Detail Recorded Client Recorded Date Recorded By Document 07/04/18 13:54 DV [id number] 07/04/18 14:02 DV Document 07/11/18 13:41 DV [id number] 07/11/18 14:01 DV Document 07/18/18 13:16 DV [id number] 07/18/18 13:28 DV 07/04/18 07/11/18 07/18/18 13:54 13:41 13:16 Wound Center Nurse 2 #9 Lower Lumbar- Midline -Time 13:55 13:42 13:17 -Correct Patient Yes Yes Yes -Correct Side, Site, Position Yes Yes Yes -Correct Procedure Yes Yes Yes -Procedure Performed Yes Yes Yes -Type of Procedure Debridement Debridement Debridement -Clinical Debridement Subcutaneous Subcutaneous Subcutaneous -Post Debridement Size (cm) - Length 13.3 13.3 13.3 -Post Debridement Size (cm) - Width 4.3 4.3 4.3 -Post Debridement Size (cm) - Depth 0.4 0.4 0.4 -Total Square Cm 57.19 57.19 57.19 -Wound/Ulcer Outcome Not Healed Not Healed Amputation -Ulcer Cleansing Rinsed/ Rinsed/ Rinsed/ Irrigated with Irrigated with Irrigated with Saline Saline Saline -Foul Odor after Cleansing No No No -Bioengineered Tissue No No -Bleeding Controlled with Pressure Pressure Pressure -Offloading No No No -Treatment Response Procedure Procedure Procedure Tolerated Well Tolerated Well Tolerated Well Pain Scale: 0-10 Numeric Is Patient Pain Free? Yes Yes Yes Wound debrided: lower lumbar midline Laterality: Not Applicable Type of Debridement: Excisional debridement Anesthesia Used: 4% Lidocaine Solution Depth: Down to and including healthy tissue, in the subcutaneous layer Percentage of wound debrided: 100 Instrument Used: 5mm curette Tissue Removed: yellow slough, devitalized tissue Severity: Fat Layer Exposed Amount of bleeding with debridement: Mild Bleeding Controlled with: Compression and gauze Patient tolerated procedure well Assessment/Plan Active Problems (Last Updated 06/16/18 @ 18:13 by Charisse Couch MD) Nonhealing surgical wound (Chronic) Open wound of lower back (Chronic) Assessment: chronic surgical wound dehiscence lumbar with complex abscess and recent surgical debridement. malnutrition. other multiple comorbidities. edema bilateral lower extremities. Bleeding site from within wound controlled with combination of silver nitrate and Surgifoam. Bleeding appears to be controlled. venous insufficiency. immunocompromised status. Plan: Debridement done as documented above. Procedure was well-tolerated. Will continue to use Aquacel Extra and will use gauze and ABDs with changes once- twice daily as needed for drainage. CT lumbar spine was negative for abscess/cellulitis. Continue increased protein intake. F/U in [address] Wick.
[2018-07-25 12:51] VITALS: BP 109/59; PULSE 90; RESP 20; TEMP 36.8; BMI 31.1
--- NOTE | 2018-07-25 17:08 | PCM.WC.PN ---
(1) Nonhealing surgical wound Status: Chronic Current Visit: Yes Qualifiers: Encounter type: subsequent encounter Code(s): T81.89XA - Other complications of procedures, not elsewhere classified, initial encounter (2) Open wound of lower back Status: Chronic Current Visit: Yes Code(s): S31.000A - Unspecified open wound of lower back and pelvis without penetration into retroperitoneum, initial encounter Type of Wound Date of Service: 07/25/18 Chief Complaint: Nonhealing surgical wound of lower back History of Wound: Mr. Marshall is a 73-yo who has been seen here at the wound center for a nonhealing surgical wound of his lower back s/p surgical debridement for an abscess s/p lumbar spine surgery. His original surgery on his lower back was approximately 2016 and he has had multiple complications since that time. He underwent surgical debridement on 03/04/[address] Davila at [facility] in [place] and was discharged with a wound vac for healing by secondary intention with possible muscle flap closure in the future. He followed up with his surgeon on 04/18/17 for further evaluation and recommendations and they plan to close the wound with a muscle flap but he continues to develop infections. He is also being seen by Infectious Disease as needed. CT 02/2018 did not show any abscess. Progress of Wound: Cuong is here for follow-up of his nonhealing surgical wound of his lower back. His wound remains stable and continues to show mild improvement. He has been tolerating Aquacel extra and gauze and ABDs and KerraMaxCare. He has had 10 applications of Purapply with mild improvement. He saw a plastic surgeon at [facility] on 04/02/18 who is hopeful to close Cuong's surgical wound with a skin flap. He requested additional records of CT scans as well as information on radiation that was done previously. Cuong is scheduled to see the surgeon at [facility] again on August 27, 2018. He has been having increased pain in his back and left leg presumably from nerve impingement. Denies increased drainage, odor, fever or chills. - Physical Exam Vital Signs Temp Pulse Resp BP 98.3 F 90 20 H 109/59 L 07/25/18 12:51 07/25/18 12:51 07/25/18 12:51 07/25/18 12:51 General: Alert, Oriented x3, Cooperative, No apparent distress HEENT: Atraumatic, Normocephalic Oral: Moist Mucosa Skin: Ulcer/ Wound Wound Measurements and Assessment WC - Nurse 1 - General Ulcer Measurement Start: 07/04/18 12:50 Freq: Status: Active Protocol: Activity Type Activity Date Activity User E-Sign Co-Sign Detail Recorded Client Recorded Date Recorded By Document 07/25/18 12:51 DL [id number] 07/25/18 12:58 DL 07/25/18 12:51 Wound Center Nurse 1 [Ulcer Assessment] #9 Lower Lumbar- Midline -Current Size (cm) - Length 13.3 -Current Size (cm) - Width 4.6 -Current Size (cm) - Depth 0.4 -Total Square Cm 61.18 -Photo Taken No -Exudate Amt Medium -Exudate Type Serosanguineous -Wound Margin Thickened & Rolled Under -Granulation Amt Small (1-33%) -Granulation Quality [place] -Necrosis Amt Large (67-100%) -Necrotic Tissue Type Adherent Slough -Structure Exposed N/A -Texture (Uma-wound Skin Appearance) Scarring -Moisture (Uma-wound Skin Appearance No Abnormality ) -Color (Uma-wound Skin Appearance) No Abnormality -Temperature (Uma-wound Skin No Abnormality Appearance) (Pt Warm) -Tenderness on Palpation (Uma-wound No Skin Appearance) -Ulcer Cleansing Wound Cleanser -Foul Odor after Cleansing No -Anesthetic Used 4% Lidocaine Solution - Nurse 2 - General Ulcer CM Notes Start: 07/04/18 12:50 Freq: Status: Active Protocol: Activity Type Activity Date Activity User E-Sign Co-Sign Detail Recorded Client Recorded Date Recorded By Document 07/25/18 13:24 DV [id number] 07/25/18 13:31 DV 07/25/18 13:24 Wound Center Nurse 2 [Procedure/Treatment] -Time 13:27 -Correct Patient Yes -Correct Side, Site, Position Yes -Correct Procedure Yes -Procedure Performed Yes -Type of Procedure Debridement -Clinical Debridement Subcutaneous -Post Debridement Size (cm) - Length 13.3 -Post Debridement Size (cm) - Width 4.3 -Post Debridement Size (cm) - Depth 0.4 -Total Square Cm 57.19 -Wound/Ulcer Outcome Failed Flap -Ulcer Cleansing Rinsed/ Irrigated with Saline -Foul Odor after Cleansing No -Bioengineered Tissue No -Bleeding Controlled with NA -Treatment Response Procedure Tolerated Well [See Physician Procedure note for Specifics] Pain Scale: 0-10 Numeric [Pain] -Is Patient Pain Free? Yes Psych/Mental Status: Normal Affect, Appropriate Debridement Note Post-Debridement Measurements/Treatment WC - Nurse 2 - General Ulcer CM Notes Start: 07/04/18 12:50 Freq: Status: Active Protocol: Activity Type Activity Date Activity User E-Sign Co-Sign Detail Recorded Client Recorded Date Recorded By Document 07/04/18 13:54 DV [id number] 07/04/18 14:02 DV Document 07/11/18 13:41 DV [id number] 07/11/18 14:01 DV Document 07/18/18 13:16 DV [id number] 07/18/18 13:28 DV Document 07/25/18 13:24 DV [id number] 07/25/18 13:31 DV 07/04/18 07/11/18 07/18/18 13:54 13:41 13:16 Wound Center Nurse 2 #9 Lower Lumbar- Midline -Time 13:55 13:42 13:17 -Correct Patient Yes Yes Yes -Correct Side, Site, Position Yes Yes Yes -Correct Procedure Yes Yes Yes -Procedure Performed Yes Yes Yes -Type of Procedure Debridement Debridement Debridement -Clinical Debridement Subcutaneous Subcutaneous Subcutaneous -Post Debridement Size (cm) - Length 13.3 13.3 13.3 -Post Debridement Size (cm) - Width 4.3 4.3 4.3 -Post Debridement Size (cm) - Depth 0.4 0.4 0.4 -Total Square Cm 57.19 57.19 57.19 -Wound/Ulcer Outcome Not Healed Not Healed Amputation -Ulcer Cleansing Rinsed/ Rinsed/ Rinsed/ Irrigated with Irrigated with Irrigated with Saline Saline Saline -Foul Odor after Cleansing No No No -Bioengineered Tissue No No -Bleeding Controlled with Pressure Pressure Pressure -Offloading No No No -Treatment Response Procedure Procedure Procedure Tolerated Well Tolerated Well Tolerated Well Pain Scale: 0-10 Numeric Is Patient Pain Free? Yes Yes Yes 07/25/18 13:24 Wound Center Nurse 2 #9 Lower Lumbar- Midline -Time 13:27 -Correct Patient Yes -Correct Side, Site, Position Yes -Correct Procedure Yes -Procedure Performed Yes -Type of Procedure Debridement -Clinical Debridement Subcutaneous -Post Debridement Size (cm) - Length 13.3 -Post Debridement Size (cm) - Width 4.3 -Post Debridement Size (cm) - Depth 0.4 -Total Square Cm 57.19 -Wound/Ulcer Outcome Failed Flap -Ulcer Cleansing Rinsed/ Irrigated with Saline -Foul Odor after Cleansing No -Bioengineered Tissue No -Bleeding Controlled with NA -Offloading -Treatment Response Procedure Tolerated Well Pain Scale: 0-10 Numeric Is Patient Pain Free? Yes Wound debrided: Lower lumbar midline Laterality: Not Applicable Type of Debridement: Excisional debridement Anesthesia Used: 4% Lidocaine Solution Depth: Down to and including healthy tissue, in the subcutaneous layer Percentage of wound debrided: 100 Instrument Used: 5mm curette Tissue Removed: yellow slough, devitalized tissue Severity: Fat Layer Exposed Amount of bleeding with debridement: Mild Bleeding Controlled with: Compression and gauze Patient tolerated procedure well Assessment/Plan Active Problems (Last Updated 06/16/18 @ 18:13 by Charisse Couch MD) Nonhealing surgical wound (Chronic) Open wound of lower back (Chronic) Assessment: chronic surgical wound dehiscence lumbar with complex abscess and recent surgical debridement. malnutrition. other multiple comorbidities. edema bilateral lower extremities. Bleeding site from within wound controlled with combination of silver nitrate and Surgifoam. Bleeding appears to be controlled. venous insufficiency. immunocompromised status. Plan: Debridement done as documented above. Procedure was well-tolerated. He would benefit from application of Theraskin to close his wound/improve the size of his wound if it isn't closed by a plastic surgeon. Will continue to use Aquacel Extra and will use gauze, KerraMaxCare with changes once daily for moderate-large amount of drainage. Continue increased protein intake. F/U in [address] Wick.
--- NOTE | 2018-07-25 17:13 | PN.PCM_ITS ---
(1) Nonhealing surgical wound Status: Chronic Current Visit: Yes Qualifiers: Encounter type: subsequent encounter Code(s): T81.89XA - Other complications of procedures, not elsewhere classified, initial encounter (2) Open wound of lower back Status: Chronic Current Visit: Yes Code(s): S31.000A - Unspecified open wound of lower back and pelvis without penetration into retroperitoneum, initial encounter Type of Wound Date of Service: 07/25/18 Chief Complaint: Nonhealing surgical wound of lower back History of Wound: Mr. Marshall is a 73-yo who has been seen here at the wound center for a nonhealing surgical wound of his lower back s/p surgical debridement for an abscess s/p lumbar spine surgery. His original surgery on his lower back was approximately 2016 and he has had multiple complications since that time. He underwent surgical debridement on 03/04/[address] Davila at [facility] in [place] and was discharged with a wound vac for healing by secondary intention with possible muscle flap closure in the future. He followed up with his surgeon on 04/18/17 for further evaluation and recommendations and they plan to close the wound with a muscle flap but he continues to develop infections. He is also being seen by Infectious Disease as needed. CT 02/2018 did not show any abscess. Progress of Wound: Cuong is here for follow-up of his nonhealing surgical wound of his lower back. His wound remains stable and continues to show mild improvement. He has been tolerating Aquacel extra and gauze and ABDs and KerraMaxCare. He has had 10 applications of Purapply with mild improvement. He saw a plastic surgeon at [facility] on 04/02/18 who is hopeful to close Cuong's surgical wound with a skin flap. He requested additional records of CT scans as well as information on radiation that was done previously. Cuong is scheduled to see the surgeon at [facility] again on August 27, 2018. He has been having increased pain in his back and left leg presumably from nerve impingement. Denies increased drainage, odor, fever or chills. - Physical Exam Vital Signs Temp Pulse Resp BP 98.3 F 90 20 H 109/59 L 07/25/18 12:51 07/25/18 12:51 07/25/18 12:51 07/25/18 12:51 General: Alert, Oriented x3, Cooperative, No apparent distress HEENT: Atraumatic, Normocephalic Oral: Moist Mucosa Skin: Ulcer/ Wound Wound Measurements and Assessment WC - Nurse 1 - General Ulcer Measurement Start: 07/04/18 12:50 Freq: Status: Active Protocol: Activity Type Activity Date Activity User E-Sign Co-Sign Detail Recorded Client Recorded Date Recorded By Document 07/25/18 12:51 DL [id number] 07/25/18 12:58 DL 07/25/18 12:51 Wound Center Nurse 1 [Ulcer Assessment] #9 Lower Lumbar- Midline -Current Size (cm) - Length 13.3 -Current Size (cm) - Width 4.6 -Current Size (cm) - Depth 0.4 -Total Square Cm 61.18 -Photo Taken No -Exudate Amt Medium -Exudate Type Serosanguineous -Wound Margin Thickened & Rolled Under -Granulation Amt Small (1-33%) -Granulation Quality [place] -Necrosis Amt Large (67-100%) -Necrotic Tissue Type Adherent Slough -Structure Exposed N/A -Texture (Uma-wound Skin Appearance) Scarring -Moisture (Uma-wound Skin Appearance No Abnormality ) -Color (Uma-wound Skin Appearance) No Abnormality -Temperature (Uma-wound Skin No Abnormality Appearance) (Pt Warm) -Tenderness on Palpation (Uma-wound No Skin Appearance) -Ulcer Cleansing Wound Cleanser -Foul Odor after Cleansing No -Anesthetic Used 4% Lidocaine Solution - Nurse 2 - General Ulcer CM Notes Start: 07/04/18 12:50 Freq: Status: Active Protocol: Activity Type Activity Date Activity User E-Sign Co-Sign Detail Recorded Client Recorded Date Recorded By Document 07/25/18 13:24 DV [id number] 07/25/18 13:31 DV 07/25/18 13:24 Wound Center Nurse 2 [Procedure/Treatment] -Time 13:27 -Correct Patient Yes -Correct Side, Site, Position Yes -Correct Procedure Yes -Procedure Performed Yes -Type of Procedure Debridement -Clinical Debridement Subcutaneous -Post Debridement Size (cm) - Length 13.3 -Post Debridement Size (cm) - Width 4.3 -Post Debridement Size (cm) - Depth 0.4 -Total Square Cm 57.19 -Wound/Ulcer Outcome Failed Flap -Ulcer Cleansing Rinsed/ Irrigated with Saline -Foul Odor after Cleansing No -Bioengineered Tissue No -Bleeding Controlled with NA -Treatment Response Procedure Tolerated Well [See Physician Procedure note for Specifics] Pain Scale: 0-10 Numeric [Pain] -Is Patient Pain Free? Yes Psych/Mental Status: Normal Affect, Appropriate Debridement Note Post-Debridement Measurements/Treatment WC - Nurse 2 - General Ulcer CM Notes Start: 07/04/18 12:50 Freq: Status: Active Protocol: Activity Type Activity Date Activity User E-Sign Co-Sign Detail Recorded Client Recorded Date Recorded By Document 07/04/18 13:54 DV [id number] 07/04/18 14:02 DV Document 07/11/18 13:41 DV [id number] 07/11/18 14:01 DV Document 07/18/18 13:16 DV [id number] 07/18/18 13:28 DV Document 07/25/18 13:24 DV [id number] 07/25/18 13:31 DV 07/04/18 07/11/18 07/18/18 13:54 13:41 13:16 Wound Center Nurse 2 #9 Lower Lumbar- Midline -Time 13:55 13:42 13:17 -Correct Patient Yes Yes Yes -Correct Side, Site, Position Yes Yes Yes -Correct Procedure Yes Yes Yes -Procedure Performed Yes Yes Yes -Type of Procedure Debridement Debridement Debridement -Clinical Debridement Subcutaneous Subcutaneous Subcutaneous -Post Debridement Size (cm) - Length 13.3 13.3 13.3 -Post Debridement Size (cm) - Width 4.3 4.3 4.3 -Post Debridement Size (cm) - Depth 0.4 0.4 0.4 -Total Square Cm 57.19 57.19 57.19 -Wound/Ulcer Outcome Not Healed Not Healed Amputation -Ulcer Cleansing Rinsed/ Rinsed/ Rinsed/ Irrigated with Irrigated with Irrigated with Saline Saline Saline -Foul Odor after Cleansing No No No -Bioengineered Tissue No No -Bleeding Controlled with Pressure Pressure Pressure -Offloading No No No -Treatment Response Procedure Procedure Procedure Tolerated Well Tolerated Well Tolerated Well Pain Scale: 0-10 Numeric Is Patient Pain Free? Yes Yes Yes 07/25/18 13:24 Wound Center Nurse 2 #9 Lower Lumbar- Midline -Time 13:27 -Correct Patient Yes -Correct Side, Site, Position Yes -Correct Procedure Yes -Procedure Performed Yes -Type of Procedure Debridement -Clinical Debridement Subcutaneous -Post Debridement Size (cm) - Length 13.3 -Post Debridement Size (cm) - Width 4.3 -Post Debridement Size (cm) - Depth 0.4 -Total Square Cm 57.19 -Wound/Ulcer Outcome Failed Flap -Ulcer Cleansing Rinsed/ Irrigated with Saline -Foul Odor after Cleansing No -Bioengineered Tissue No -Bleeding Controlled with NA -Offloading -Treatment Response Procedure Tolerated Well Pain Scale: 0-10 Numeric Is Patient Pain Free? Yes Wound debrided: Lower lumbar midline Laterality: Not Applicable Type of Debridement: Excisional debridement Anesthesia Used: 4% Lidocaine Solution Depth: Down to and including healthy tissue, in the subcutaneous layer Percentage of wound debrided: 100 Instrument Used: 5mm curette Tissue Removed: yellow slough, devitalized tissue Severity: Fat Layer Exposed Amount of bleeding with debridement: Mild Bleeding Controlled with: Compression and gauze Patient tolerated procedure well Assessment/Plan Active Problems (Last Updated 06/16/18 @ 18:13 by Charisse Couch MD) Nonhealing surgical wound (Chronic) Open wound of lower back (Chronic) Assessment: chronic surgical wound dehiscence lumbar with complex abscess and recent surgical debridement. malnutrition. other multiple comorbidities. edema bilateral lower extremities. Bleeding site from within wound controlled with combination of silver nitrate and Surgifoam. Bleeding appears to be controlled. venous insufficiency. immunocompromised status. Plan: Debridement done as documented above. Procedure was well-tolerated. He would benefit from application of Theraskin to close his wound/improve the size of his wound if it isn't closed by a plastic surgeon. Will continue to use Aquacel Extra and will use gauze, KerraMaxCare with changes once daily for moderate-large amount of drainage. Continue increased protein intake. F/U in [address] Wick.
[2018-08-01 12:49] VITALS: BP 115/73; PULSE 110; TEMP 36.1; BMI 31.1
--- NOTE | 2018-08-01 17:48 | PCM.WC.PN ---
(1) Nonhealing surgical wound Status: Chronic Current Visit: Yes Qualifiers: Encounter type: subsequent encounter Code(s): T81.89XA - Other complications of procedures, not elsewhere classified, initial encounter (2) Open wound of lower back Status: Chronic Current Visit: Yes Code(s): S31.000A - Unspecified open wound of lower back and pelvis without penetration into retroperitoneum, initial encounter Type of Wound Date of Service: 08/01/18 Chief Complaint: Nonhealing surgical wound of lower back History of Wound: Mr. Marshall is a 73-yo who has been seen here at the wound center for a nonhealing surgical wound of his lower back s/p surgical debridement for an abscess s/p lumbar spine surgery. His original surgery on his lower back was approximately 2016 and he has had multiple complications since that time. He underwent surgical debridement on 03/04/[address] Davila at [facility] in [place] and was discharged with a wound vac for healing by secondary intention with possible muscle flap closure in the future. He followed up with his surgeon on 04/18/17 for further evaluation and recommendations and they plan to close the wound with a muscle flap but he continues to develop infections. He is also being seen by Infectious Disease as needed. CT 02/2018 did not show any abscess. Progress of Wound: Cuong is here for follow-up of his nonhealing surgical wound of his lower back. His wound remains stable and continues to show mild improvement. He has been tolerating Aquacel extra and gauze and ABDs and KerraMaxCare. He has had 10 applications of Purapply with mild improvement. He saw a plastic surgeon at [facility] on 04/02/18 who is hopeful to close Cuong's surgical wound with a skin flap. He requested additional records of CT scans as well as information on radiation that was done previously. Cuong is scheduled to see the surgeon at [facility] again on August 27, 2018. He has been having increased pain in his back and left leg presumably from nerve impingement. Denies increased drainage, odor, fever or chills. - Physical Exam Vital Signs Temp Pulse Resp BP 97 F L 110 H 20 H 115/73 08/01/18 12:49 08/01/18 12:49 07/25/18 12:51 08/01/18 12:49 General: Alert, Oriented x3, Cooperative, No apparent distress HEENT: Atraumatic, Normocephalic Oral: Moist Mucosa Skin: Ulcer/ Wound Wound Measurements and Assessment - Nurse 1 - General Ulcer Measurement Start: 07/04/18 12:50 Freq: Status: Active Protocol: Activity Type Activity Date Activity User E-Sign Co-Sign Detail Recorded Client Recorded Date Recorded By Document 08/01/18 12:49 [facility] [id number] 08/01/18 12:56 [facility] 08/01/18 12:49 Wound Center Nurse 1 [Ulcer Assessment] #9 Lower Lumbar- Midline -Combined with other wound No -Current Size (cm) - Length 14 -Current Size (cm) - Width 4.5 -Current Size (cm) - Depth 0.3 -Total Square Cm 63.0 -Date of Last Picture (Recall this 08/01/18 field) -Photo Taken Yes -Epithelialization None Present -Tunneling No -Undermining/Tunneling No -Circular Undermining No -Exudate Amt Medium -Exudate Type Serosanguineous -Wound Margin Thickened & Rolled Under -Granulation Amt Small (1-33%) -Granulation Quality Red -Slough/Fibrin Yes -Necrosis Amt Large (67-100%) -Necrotic Tissue Type Adherent Slough -Texture (Uma-wound Skin Appearance) Assessed Scarring -Moisture (Uma-wound Skin Appearance Assessed ) Dry/Scaly -Color (Uma-wound Skin Appearance) Assessed -Temperature (Uma-wound Skin No Abnormality Appearance) (Pt Warm) -Tenderness on Palpation (Uma-wound No Skin Appearance) -Ulcer Cleansing Rinsed/ Irrigated with Saline -Foul Odor after Cleansing No -Anesthetic Used 4% Lidocaine Solution - Nurse 2 - General Ulcer CM Notes Start: 07/04/18 12:50 Freq: Status: Active Protocol: Activity Type Activity Date Activity User E-Sign Co-Sign Detail Recorded Client Recorded Date Recorded By Document 08/01/18 13:20 DV [id number] 08/01/18 13:37 DV 08/01/18 13:20 Wound Center Nurse 2 [Procedure/Treatment] -Time 13:26 -Correct Patient Yes -Correct Side, Site, Position Yes -Correct Procedure Yes -Procedure Performed Yes -Type of Procedure Debridement -Clinical Debridement Subcutaneous -Post Debridement Size (cm) - Length 13.3 -Post Debridement Size (cm) - Width 4.3 -Post Debridement Size (cm) - Depth 0.4 -Total Square Cm 57.19 -Wound/Ulcer Outcome Not Healed -Ulcer Cleansing Rinsed/ Irrigated with Saline -Foul Odor after Cleansing No -Bioengineered Tissue Yes -Type of bioengineered Tissue THERASKIN -Expiration Date 02/02/22 -Product Lot Number [id number], [id number] -Percent Used 100 -Saline Lot Number [id number] -Topical Lidocaine (%) 5 -Bleeding Controlled with SURGIFOAM -Offloading No -Treatment Response Procedure Tolerated Well [See Physician Procedure note for Specifics] Pain Scale: 0-10 Numeric [Pain] -Is Patient Pain Free? Yes Psych/Mental Status: Normal Affect, Appropriate Debridement Note Post-Debridement Measurements/Treatment WC - Nurse 2 - General Ulcer CM Notes Start: 07/04/18 12:50 Freq: Status: Active Protocol: Activity Type Activity Date Activity User E-Sign Co-Sign Detail Recorded Client Recorded Date Recorded By Document 07/04/18 13:54 DV [id number] 07/04/18 14:02 DV Document 07/11/18 13:41 DV [id number] 07/11/18 14:01 DV Document 07/18/18 13:16 DV [id number] 07/18/18 13:28 DV Document 07/25/18 13:24 DV [id number] 07/25/18 13:31 DV Document 08/01/18 13:20 DV [id number] 08/01/18 13:37 DV 07/04/18 07/11/18 07/18/18 13:54 13:41 13:16 Wound Center Nurse 2 #9 Lower Lumbar- Midline -Time 13:55 13:42 13:17 -Correct Patient Yes Yes Yes -Correct Side, Site, Position Yes Yes Yes -Correct Procedure Yes Yes Yes -Procedure Performed Yes Yes Yes -Type of Procedure Debridement Debridement Debridement -Clinical Debridement Subcutaneous Subcutaneous Subcutaneous -Post Debridement Size (cm) - Length 13.3 13.3 13.3 -Post Debridement Size (cm) - Width 4.3 4.3 4.3 -Post Debridement Size (cm) - Depth 0.4 0.4 0.4 -Total Square Cm 57.19 57.19 57.19 -Wound/Ulcer Outcome Not Healed Not Healed Amputation -Ulcer Cleansing Rinsed/ Rinsed/ Rinsed/ Irrigated with Irrigated with Irrigated with Saline Saline Saline -Foul Odor after Cleansing No No No -Bioengineered Tissue No No -Type of bioengineered Tissue -Expiration Date -Product Lot Number -Percent Used -Saline Lot Number -Topical Lidocaine (%) -Bleeding Controlled with Pressure Pressure Pressure -Offloading No No No -Treatment Response Procedure Procedure Procedure Tolerated Well Tolerated Well Tolerated Well Pain Scale: 0-10 Numeric Is Patient Pain Free? Yes Yes Yes 07/25/18 08/01/18 13:24 13:20 Wound Center Nurse 2 #9 Lower Lumbar- Midline -Time 13:27 13:26 -Correct Patient Yes Yes -Correct Side, Site, Position Yes Yes -Correct Procedure Yes Yes -Procedure Performed Yes Yes -Type of Procedure Debridement Debridement -Clinical Debridement Subcutaneous Subcutaneous -Post Debridement Size (cm) - Length 13.3 13.3 -Post Debridement Size (cm) - Width 4.3 4.3 -Post Debridement Size (cm) - Depth 0.4 0.4 -Total Square Cm 57.19 57.19 -Wound/Ulcer Outcome Failed Flap Not Healed -Ulcer Cleansing Rinsed/ Rinsed/ Irrigated with Irrigated with Saline Saline -Foul Odor after Cleansing No No -Bioengineered Tissue No Yes -Type of bioengineered Tissue [place]ER[place]IN -Expiration Date 02/02/22 -Product Lot Number [id number], [id number] -Percent Used 100 -Saline Lot Number [id number] -Topical Lidocaine (%) 5 -Bleeding Controlled with NA SURGIFOAM -Offloading No -Treatment Response Procedure Procedure Tolerated Well Tolerated Well Pain Scale: 0-10 Numeric Is Patient Pain Free? Yes Yes Wound debrided: Lower lumbar midline Laterality: Not Applicable Type of Debridement: Excisional debridement Anesthesia Used: 4% Lidocaine Solution Depth: Down to and including healthy tissue, in the subcutaneous layer Percentage of wound debrided: 100 Instrument Used: 5mm curette Tissue Removed: yellow slough, devitalized tissue Severity: Fat Layer Exposed Amount of bleeding with debridement: Mild Bleeding Controlled with: Compression and gauze Patient tolerated procedure well Assessment/Plan Active Problems (Last Updated 06/16/18 @ 18:13 by Charisse Couch MD) Nonhealing surgical wound (Chronic) Open wound of lower back (Chronic) Assessment: chronic surgical wound dehiscence lumbar with complex abscess and recent surgical debridement. malnutrition. other multiple comorbidities. edema bilateral lower extremities. Bleeding site from within wound controlled with combination of silver nitrate and Surgifoam. Bleeding appears to be controlled. venous insufficiency. immunocompromised status. Plan: Debridement done as documented above. Procedure was well-tolerated. Theraskin was applied to his wound per strap cutter guidelines using 2 theraskin grafts to cover the entirety of his wound. Approximately 20% of the second Theraskin graft was trimmed and disposed of to fit the wound bed. Theraskin grafts were sutured in place. Will continue to use gauze, KerraMaxCare with changes once daily for moderate-large amount of drainage. Continue increased protein intake. F/U in [address] Wick.
--- NOTE | 2018-08-01 17:57 | PN.PCM_ITS ---
(1) Nonhealing surgical wound Status: Chronic Current Visit: Yes Qualifiers: Encounter type: subsequent encounter Code(s): T81.89XA - Other complications of procedures, not elsewhere classified, initial encounter (2) Open wound of lower back Status: Chronic Current Visit: Yes Code(s): S31.000A - Unspecified open wound of lower back and pelvis without penetration into retroperitoneum, initial encounter Type of Wound Date of Service: 08/01/18 Chief Complaint: Nonhealing surgical wound of lower back History of Wound: Mr. Marshall is a 73-yo who has been seen here at the wound center for a nonhealing surgical wound of his lower back s/p surgical debridement for an abscess s/p lumbar spine surgery. His original surgery on his lower back was approximately 2016 and he has had multiple complications since that time. He underwent surgical debridement on 03/04/[address] Davila at [facility] in [place] and was discharged with a wound vac for healing by secondary intention with possible muscle flap closure in the future. He followed up with his surgeon on 04/18/17 for further evaluation and recommendations and they plan to close the wound with a muscle flap but he continues to develop infections. He is also being seen by Infectious Disease as needed. CT 02/2018 did not show any abscess. Progress of Wound: Cuong is here for follow-up of his nonhealing surgical wound of his lower back. His wound remains stable and continues to show mild improvement. He has been tolerating Aquacel extra and gauze and ABDs and KerraMaxCare. He has had 10 applications of Purapply with mild improvement. He saw a plastic surgeon at [facility] on 04/02/18 who is hopeful to close Cuong's surgical wound with a skin flap. He requested additional records of CT scans as well as information on radiation that was done previously. Cuong is scheduled to see the surgeon at [facility] again on August 27, 2018. He has been having increased pain in his back and left leg presumably from nerve impingement. Denies increased drainage, odor, fever or chills. - Physical Exam Vital Signs Temp Pulse Resp BP 97 F L 110 H 20 H 115/73 08/01/18 12:49 08/01/18 12:49 07/25/18 12:51 08/01/18 12:49 General: Alert, Oriented x3, Cooperative, No apparent distress HEENT: Atraumatic, Normocephalic Oral: Moist Mucosa Skin: Ulcer/ Wound Wound Measurements and Assessment - Nurse 1 - General Ulcer Measurement Start: 07/04/18 12:50 Freq: Status: Active Protocol: Activity Type Activity Date Activity User E-Sign Co-Sign Detail Recorded Client Recorded Date Recorded By Document 08/01/18 12:49 [facility] [id number] 08/01/18 12:56 [facility] 08/01/18 12:49 Wound Center Nurse 1 [Ulcer Assessment] #9 Lower Lumbar- Midline -Combined with other wound No -Current Size (cm) - Length 14 -Current Size (cm) - Width 4.5 -Current Size (cm) - Depth 0.3 -Total Square Cm 63.0 -Date of Last Picture (Recall this 08/01/18 field) -Photo Taken Yes -Epithelialization None Present -Tunneling No -Undermining/Tunneling No -Circular Undermining No -Exudate Amt Medium -Exudate Type Serosanguineous -Wound Margin Thickened & Rolled Under -Granulation Amt Small (1-33%) -Granulation Quality Red -Slough/Fibrin Yes -Necrosis Amt Large (67-100%) -Necrotic Tissue Type Adherent Slough -Texture (Uma-wound Skin Appearance) Assessed Scarring -Moisture (Uma-wound Skin Appearance Assessed ) Dry/Scaly -Color (Uma-wound Skin Appearance) Assessed -Temperature (Uma-wound Skin No Abnormality Appearance) (Pt Warm) -Tenderness on Palpation (Uma-wound No Skin Appearance) -Ulcer Cleansing Rinsed/ Irrigated with Saline -Foul Odor after Cleansing No -Anesthetic Used 4% Lidocaine Solution - Nurse 2 - General Ulcer CM Notes Start: 07/04/18 12:50 Freq: Status: Active Protocol: Activity Type Activity Date Activity User E-Sign Co-Sign Detail Recorded Client Recorded Date Recorded By Document 08/01/18 13:20 DV [id number] 08/01/18 13:37 DV 08/01/18 13:20 Wound Center Nurse 2 [Procedure/Treatment] -Time 13:26 -Correct Patient Yes -Correct Side, Site, Position Yes -Correct Procedure Yes -Procedure Performed Yes -Type of Procedure Debridement -Clinical Debridement Subcutaneous -Post Debridement Size (cm) - Length 13.3 -Post Debridement Size (cm) - Width 4.3 -Post Debridement Size (cm) - Depth 0.4 -Total Square Cm 57.19 -Wound/Ulcer Outcome Not Healed -Ulcer Cleansing Rinsed/ Irrigated with Saline -Foul Odor after Cleansing No -Bioengineered Tissue Yes -Type of bioengineered Tissue [place]ER[place]IN -Expiration Date 02/02/22 -Product Lot Number [id number], [id number] -Percent Used 100 -Saline Lot Number [id number] -Topical Lidocaine (%) 5 -Bleeding Controlled with SURGIFOAM -Offloading No -Treatment Response Procedure Tolerated Well [See Physician Procedure note for Specifics] Pain Scale: 0-10 Numeric [Pain] -Is Patient Pain Free? Yes Psych/Mental Status: Normal Affect, Appropriate Debridement Note Post-Debridement Measurements/Treatment WC - Nurse 2 - General Ulcer CM Notes Start: 07/04/18 12:50 Freq: Status: Active Protocol: Activity Type Activity Date Activity User E-Sign Co-Sign Detail Recorded Client Recorded Date Recorded By Document 07/04/18 13:54 DV [id number] 07/04/18 14:02 DV Document 07/11/18 13:41 DV [id number] 07/11/18 14:01 DV Document 07/18/18 13:16 DV [id number] 07/18/18 13:28 DV Document 07/25/18 13:24 DV [id number] 07/25/18 13:31 DV Document 08/01/18 13:20 DV [id number] 08/01/18 13:37 DV 07/04/18 07/11/18 07/18/18 13:54 13:41 13:16 Wound Center Nurse 2 #9 Lower Lumbar- Midline -Time 13:55 13:42 13:17 -Correct Patient Yes Yes Yes -Correct Side, Site, Position Yes Yes Yes -Correct Procedure Yes Yes Yes -Procedure Performed Yes Yes Yes -Type of Procedure Debridement Debridement Debridement -Clinical Debridement Subcutaneous Subcutaneous Subcutaneous -Post Debridement Size (cm) - Length 13.3 13.3 13.3 -Post Debridement Size (cm) - Width 4.3 4.3 4.3 -Post Debridement Size (cm) - Depth 0.4 0.4 0.4 -Total Square Cm 57.19 57.19 57.19 -Wound/Ulcer Outcome Not Healed Not Healed Amputation -Ulcer Cleansing Rinsed/ Rinsed/ Rinsed/ Irrigated with Irrigated with Irrigated with Saline Saline Saline -Foul Odor after Cleansing No No No -Bioengineered Tissue No No -Type of bioengineered Tissue -Expiration Date -Product Lot Number -Percent Used -Saline Lot Number -Topical Lidocaine (%) -Bleeding Controlled with Pressure Pressure Pressure -Offloading No No No -Treatment Response Procedure Procedure Procedure Tolerated Well Tolerated Well Tolerated Well Pain Scale: 0-10 Numeric Is Patient Pain Free? Yes Yes Yes 07/25/18 08/01/18 13:24 13:20 Wound Center Nurse 2 #9 Lower Lumbar- Midline -Time 13:27 13:26 -Correct Patient Yes Yes -Correct Side, Site, Position Yes Yes -Correct Procedure Yes Yes -Procedure Performed Yes Yes -Type of Procedure Debridement Debridement -Clinical Debridement Subcutaneous Subcutaneous -Post Debridement Size (cm) - Length 13.3 13.3 -Post Debridement Size (cm) - Width 4.3 4.3 -Post Debridement Size (cm) - Depth 0.4 0.4 -Total Square Cm 57.19 57.19 -Wound/Ulcer Outcome Failed Flap Not Healed -Ulcer Cleansing Rinsed/ Rinsed/ Irrigated with Irrigated with Saline Saline -Foul Odor after Cleansing No No -Bioengineered Tissue No Yes -Type of bioengineered Tissue [place]ER[place]IN -Expiration Date 02/02/22 -Product Lot Number [id number], [id number] -Percent Used 100 -Saline Lot Number [id number] -Topical Lidocaine (%) 5 -Bleeding Controlled with NA SURGIFOAM -Offloading No -Treatment Response Procedure Procedure Tolerated Well Tolerated Well Pain Scale: 0-10 Numeric Is Patient Pain Free? Yes Yes Wound debrided: Lower lumbar midline Laterality: Not Applicable Type of Debridement: Excisional debridement Anesthesia Used: 4% Lidocaine Solution Depth: Down to and including healthy tissue, in the subcutaneous layer Percentage of wound debrided: 100 Instrument Used: 5mm curette Tissue Removed: yellow slough, devitalized tissue Severity: Fat Layer Exposed Amount of bleeding with debridement: Mild Bleeding Controlled with: Compression and gauze Patient tolerated procedure well Assessment/Plan Active Problems (Last Updated 06/16/18 @ 18:13 by Charisse Couch MD) Nonhealing surgical wound (Chronic) Open wound of lower back (Chronic) Assessment: chronic surgical wound dehiscence lumbar with complex abscess and recent surgical debridement. malnutrition. other multiple comorbidities. edema bilateral lower extremities. Bleeding site from within wound controlled with combination of silver nitrate and Surgifoam. Bleeding appears to be cont rolled. venous insufficiency. immunocompromised status. Plan: Debridement done as documented above. Procedure was well-tolerated. Theraskin was applied to his wound per treasury representative guidelines using 2 theraskin grafts to cover the entirety of his wound. Approximately 20% of the second Theraskin graft was trimmed and disposed of to fit the wound bed. Theraskin grafts were sutured in place. Will continue to use gauze, KerraMaxCare with changes once daily for moderate-large amount of drainage. Continue increased protein intake. F/U in [address] Wick.
== END 2018-08-03 23:59 ==
LOC: WC 12:45
PROVIDERS: Family Provider Family Medicine; PCP Family Medicine; Referring Provider Family Medicine; Visit Provider Family Medicine
DX: T81.30XA Disruption of wound, unspecified, initial encounter (principal); L03.312 Cellulitis of back [any part except buttock and flank]; Y83.8 Other surgical procedures as the cause of abnormal reaction of the patient, or of later complication, without mention of misadventure at the time of the procedure; I87.2 Venous insufficiency (chronic) (peripheral)
CPT/HCPCS: 11042; 11045; 15271; 15272; Q4121

== ENCOUNTER → 2018-08-04 10:48 | Outpatient (CLI) | payer MEDICARE, OTHER, SELFPAY ==
[2015-10-31 10:00] VITALS: BMI 34.9
[2018-07-21 11:54] VITALS: BMI 28.7
[2018-08-01 12:49] VITALS: BMI 31.1
[2018-08-04 11:35] LABS: Hemoglobin 8.4 g/dl (13.0-16.5)
[2018-08-04 11:45] LABS: Albumin, Serum 2.2 g/dL (3.2-5.0); BUN 25 mg/dL (7-18); BUN/Creat Ratio 19.2 RATIO (10-20); Calcium,Total 8.1 mg/dL (8.5-10.1); Chloride 102 mmol/L (98-107); EST Glomerular Filtration Rate 57 mL/min (>60); Est Glom Filt Rate - Afr Amer 69 mL/min (>60); Ferritin 216 ng/mL (26-388); Glucose 105 mg/dL (74-106); Iron 96 ug/dL (65-175); Iron Binding Capacity,Total 168 ug/dL (250-450); Phosphorus 2.1 mg/dL (2.5-4.9); Potassium 3.5 mmol/L (3.5-5.1); Sodium Level 141 mmol/L (136-145)
[2018-08-04 11:57] VITALS: BP 115/62; PULSE 86; RESP 16; TEMP 36.6; O2SAT 99; BMI 28.8
[2018-08-04] MEDS: Epoetin Alfa-epbx 40,000 UNIT/ML 24000 UNIT SC (12:11)
== END ==
PROVIDERS: Family Provider Family Medicine; PCP Family Medicine; Referring Provider Internal Medicine Nephrology; Visit Provider Internal Medicine Nephrology
DX: N18.3 Chronic kidney disease, stage 3 (moderate) (principal); D63.1 Anemia in chronic kidney disease
CPT/HCPCS: 36415; 80069; 82728; 83540; 83550; 85014; 85018; 96372; J0885; Q5106

== ENCOUNTER → 2018-08-22 10:18 | Outpatient (CLI) | payer MEDICARE, OTHER, SELFPAY ==
[2015-10-31 10:00] VITALS: BMI 34.9
[2018-08-04 11:57] VITALS: BMI 28.8
[2018-08-15 12:29] VITALS: BMI 28.8
[2018-08-22 10:40] VITALS: BP 97/49; PULSE 70; RESP 16; TEMP 37.1; O2SAT 95; BMI 28.8
[2018-08-22 10:47] LABS: Hematocrit 28.3 % (40-54); Hemoglobin 8.6 g/dl (13.0-16.5)
[2018-08-22] MEDS: Epoetin Alfa-epbx 40,000 UNIT/ML 24000 UNIT SC (11:02)
[2018-08-22 11:08] LABS: BUN 29 mg/dL (7-18); BUN/Creat Ratio 20.1 RATIO (10-20); Calcium,Total 8.2 mg/dL (8.5-10.1); Chloride 103 mmol/L (98-107); Creatinine, Serum 1.44 mg/dL (0.70-1.30); EST Glomerular Filtration Rate 51 mL/min (>60); Est Glom Filt Rate - Afr Amer 62 mL/min (>60); Ferritin 194 ng/mL (26-388); Glucose 107 mg/dL (74-106); Iron 110 ug/dL (65-175); Iron Binding Capacity,Total 160 ug/dL (250-450); Phosphorus 2.9 mg/dL (2.5-4.9); Potassium 3.7 mmol/L (3.5-5.1); Sodium Level 140 mmol/L (136-145)
== END ==
PROVIDERS: Family Provider Family Medicine; PCP Family Medicine; Referring Provider Internal Medicine Nephrology; Visit Provider Internal Medicine Nephrology
DX: N18.3 Chronic kidney disease, stage 3 (moderate) (principal); D63.1 Anemia in chronic kidney disease
CPT/HCPCS: 36415; 80069; 82728; 83540; 83550; 85014; 85018; 96372; Q5106

== ENCOUNTER 2018-08-29 08:00 | Outpatient (RCR) | payer MEDICARE, OTHER, SELFPAY ==
[2015-10-31 10:00] VITALS: BMI 34.9
[2018-08-04 00:45] VITALS: BP 115/73; PULSE 110; RESP 20; TEMP 36.1
[2018-08-04 11:57] VITALS: BMI 28.8
[2018-08-08 12:36] VITALS: BP 141/77; PULSE 104; RESP 18; TEMP 36.3; BMI 28.8
--- NOTE | 2018-08-08 18:20 | PCM.WC.PN ---
(1) Nonhealing surgical wound Status: Chronic Current Visit: Yes Qualifiers: Encounter type: subsequent encounter Code(s): T81.89XA - Other complications of procedures, not elsewhere classified, initial encounter (2) Open wound of lower back Status: Chronic Current Visit: Yes Code(s): S31.000A - Unspecified open wound of lower back and pelvis without penetration into retroperitoneum, initial encounter Type of Wound Date of Service: 08/08/18 Chief Complaint: Nonhealing surgical wound of lower back History of Wound: Mr. Marshall is a 73-yo who has been seen here at the wound center for a nonhealing surgical wound of his lower back s/p surgical debridement for an abscess s/p lumbar spine surgery. His original surgery on his lower back was approximately 2016 and he has had multiple complications since that time. He underwent surgical debridement on 03/04/[address] Davila at [facility] in [place] and was discharged with a wound vac for healing by secondary intention with possible muscle flap closure in the future. He followed up with his surgeon on 04/18/17 for further evaluation and recommendations and they plan to close the wound with a muscle flap but he continues to develop infections. He is also being seen by Infectious Disease as needed. CT 02/2018 did not show any abscess. Progress of Wound: Cuong is here for follow-up of his nonhealing surgical wound of his lower back. His wound remains stable and continues to show mild improvement. He tolerated treatment with Theraskin but only 1/2 of the Theraskin became incorporated into his wound. He has been tolerating Aquacel extra and gauze and ABDs and KerraMaxCare. He has had 10 applications of Purapply with mild improvement. He saw a plastic surgeon at [facility] on 04/02/18 who is hopeful to close Cuong's surgical wound with a skin flap. He requested additional records of CT scans as well as information on radiation that was done previously. Cuong is scheduled to see the surgeon at [facility] again on August 27, 2018. He has been having increased pain in his back and left leg presumably from nerve impingement. Denies increased drainage, odor, fever or chills. - Physical Exam Vital Signs Temp Pulse Resp BP 97.3 F L 104 H 18 141/77 H 08/08/18 12:36 08/08/18 12:36 08/08/18 12:36 08/08/18 12:36 General: Alert, Oriented x3, Cooperative, No apparent distress HEENT: Atraumatic, Normocephalic Oral: Moist Mucosa Extremities: Edema Skin: Ulcer/ Wound Wound Measurements and Assessment WC - Nurse 1 - General Ulcer Measurement Start: 08/08/18 12:36 Freq: Status: Active Protocol: Activity Type Activity Date Activity User E-Sign Co-Sign Detail Recorded Client Recorded Date Recorded By Document 08/08/18 12:36 MW [id number] 08/08/18 12:43 MW 08/08/18 12:36 Wound Center Nurse 1 [Ulcer Assessment] #9 Lower Lumbar- Midline -Combined with other wound No -Current Size (cm) - Length 14.2 -Current Size (cm) - Width 4.4 -Current Size (cm) - Depth 0.2 -Total Square Cm 62.48 -Photo Taken No -Epithelialization None Present -Tunneling No -Undermining/Tunneling No -Circular Undermining No -Exudate Amt Large -Exudate Type Yellow/Green -Wound Margin Distinct, Outline Attached -Granulation Amt Small (1-33%) -Granulation Quality [place] -Slough/Fibrin Yes -Necrosis Amt Large (67-100%) -Necrotic Tissue Type Adherent Slough -Structure Exposed N/A -Texture (Uma-wound Skin Appearance) Assessed Scarring -Moisture (Uma-wound Skin Appearance No Abnormality ) Assessed -Color (Uma-wound Skin Appearance) No Abnormality Erythema -Temperature (Uma-wound Skin No Abnormality Appearance) (Pt Warm) -Tenderness on Palpation (Uma-wound No Skin Appearance) -Ulcer Cleansing soap and water -Foul Odor after Cleansing Yes -Anesthetic Used 4% Lidocaine Solution [Edema Assessment] -Lower Limb Edema Present No WC - Nurse 2 - General Ulcer CM Notes Start: 08/08/18 12:36 Freq: Status: Active Protocol: Activity Type Activity Date Activity User E-Sign Co-Sign Detail Recorded Client Recorded Date Recorded By Document 08/08/18 13:13 DV [id number] 08/08/18 13:21 DV 08/08/18 13:13 Wound Center Nurse 2 [Procedure/Treatment] #9 Lower Lumbar- Midline -Time 13:14 -Correct Patient Yes -Correct Side, Site, Position Yes -Correct Procedure Yes -Procedure Performed Yes -Type of Procedure Debridement -Clinical Debridement Subcutaneous -Post Debridement Size (cm) - Length 13.6 -Post Debridement Size (cm) - Width 4.2 -Post Debridement Size (cm) - Depth 0.4 -Total Square Cm 57.12 -Wound/Ulcer Outcome Not Healed -Ulcer Cleansing Rinsed/ Irrigated with Saline -Foul Odor after Cleansing No -Bioengineered Tissue No -Bleeding Controlled with Pressure -Offloading No -Treatment Response Procedure Tolerated Well [See Physician Procedure note for Specifics] Pain Scale: 0-10 Numeric [Pain] -Is Patient Pain Free? Yes Psych/Mental Status: Normal Affect, Appropriate Debridement Note Post-Debridement Measurements/Treatment WC - Nurse 2 - General Ulcer CM Notes Start: 08/08/18 12:36 Freq: Status: Active Protocol: Activity Type Activity Date Activity User E-Sign Co-Sign Detail Recorded Client Recorded Date Recorded By Document 08/08/18 13:13 DV [id number] 08/08/18 13:21 DV 08/08/18 13:13 Wound Center Nurse 2 #9 Lower Lumbar- Midline -Time 13:14 -Correct Patient Yes -Correct Side, Site, Position Yes -Correct Procedure Yes -Procedure Performed Yes -Type of Procedure Debridement -Clinical Debridement Subcutaneous -Post Debridement Size (cm) - Length 13.6 -Post Debridement Size (cm) - Width 4.2 -Post Debridement Size (cm) - Depth 0.4 -Total Square Cm 57.12 -Wound/Ulcer Outcome Not Healed -Ulcer Cleansing Rinsed/ Irrigated with Saline -Foul Odor after Cleansing No -Bioengineered Tissue No -Bleeding Controlled with Pressure -Offloading No -Treatment Response Procedure Tolerated Well Pain Scale: 0-10 Numeric Is Patient Pain Free? Yes Wound debrided: lower lumbar midline Laterality: Not Applicable Type of Debridement: Excisional debridement Anesthesia Used: 4% Lidocaine Solution Depth: Down to and including healthy tissue, in the subcutaneous layer Percentage of wound debrided: 100 Instrument Used: 5mm curette Tissue Removed: yellow slough, devitalized tissue Severity: Fat Layer Exposed Amount of bleeding with debridement: Mild Bleeding Controlled with: Compression and gauze Patient tolerated procedure well Assessment/Plan Active Problems (Last Updated 06/16/18 @ 18:13 by Charisse Couch MD) Nonhealing surgical wound (Chronic) Open wound of lower back (Chronic) Assessment: chronic surgical wound dehiscence lumbar with complex abscess and recent surgical debridement. malnutrition. other multiple comorbidities. edema bilateral lower extremities. Bleeding site from within wound controlled with combination of silver nitrate and Surgifoam. Bleeding appears to be controlled. venous insufficiency. immunocompromised status. Plan: Debridement done as documented above. Procedure was well-tolerated. Theraskin was not debrided but the rest of his wound was debrided. Wound veil will be placed over the Theraskin and will continue to use Aquacel, gauze, and KerraMaxCare with changes once daily for moderate-large amount of drainage. Continue increased protein intake. F/U in [address] Wick.
--- NOTE | 2018-08-08 18:30 | PN.PCM_ITS ---
(1) Nonhealing surgical wound Status: Chronic Current Visit: Yes Qualifiers: Encounter type: subsequent encounter Code(s): T81.89XA - Other complications of procedures, not elsewhere classified, initial encounter (2) Open wound of lower back Status: Chronic Current Visit: Yes Code(s): S31.000A - Unspecified open wound of lower back and pelvis without penetration into retroperitoneum, initial encounter Type of Wound Date of Service: 08/08/18 Chief Complaint: Nonhealing surgical wound of lower back History of Wound: Mr. Marshall is a 73-yo who has been seen here at the wound center for a nonhealing surgical wound of his lower back s/p surgical debridement for an abscess s/p lumbar spine surgery. His original surgery on his lower back was approximately 2016 and he has had multiple complications since that time. He underwent surgical debridement on 03/04/[address] Davila at [facility] in [place] and was discharged with a wound vac for healing by secondary intention with possible muscle flap closure in the future. He followed up with his surgeon on 04/18/17 for further evaluation and recommendations and they plan to close the wound with a muscle flap but he continues to develop infections. He is also being seen by Infectious Disease as needed. CT 02/2018 did not show any abscess. Progress of Wound: Cuong is here for follow-up of his nonhealing surgical wound of his lower back. His wound remains stable and continues to show mild improvement. He tolerated treatment with Theraskin but only 1/2 of the Theraskin became incorporated into his wound. He has been tolerating Aquacel extra and gauze and ABDs and KerraMaxCare. He has had 10 applications of Purapply with mild improvement. He saw a plastic surgeon at [facility] on 04/02/18 who is hopeful to close Cuong's surgical wound with a skin flap. He requested additional records of CT scans as well as information on radiation that was done previously. Cuong is scheduled to see the surgeon at [facility] again on August 27, 2018. He has been having increased pain in his back and left leg presumably from nerve impingement. Denies increased drainage, odor, fever or chills. - Physical Exam Vital Signs Temp Pulse Resp BP 97.3 F L 104 H 18 141/77 H 08/08/18 12:36 08/08/18 12:36 08/08/18 12:36 08/08/18 12:36 General: Alert, Oriented x3, Cooperative, No apparent distress HEENT: Atraumatic, Normocephalic Oral: Moist Mucosa Extremities: Edema Skin: Ulcer/ Wound Wound Measurements and Assessment WC - Nurse 1 - General Ulcer Measurement Start: 08/08/18 12:36 Freq: Status: Active Protocol: Activity Type Activity Date Activity User E-Sign Co-Sign Detail Recorded Client Recorded Date Recorded By Document 08/08/18 12:36 MW [id number] 08/08/18 12:43 MW 08/08/18 12:36 Wound Center Nurse 1 [Ulcer Assessment] #9 Lower Lumbar- Midline -Combined with other wound No -Current Size (cm) - Length 14.2 -Current Size (cm) - Width 4.4 -Current Size (cm) - Depth 0.2 -Total Square Cm 62.48 -Photo Taken No -Epithelialization None Present -Tunneling No -Undermining/Tunneling No -Circular Undermining No -Exudate Amt Large -Exudate Type Yellow/Green -Wound Margin Distinct, Outline Attached -Granulation Amt Small (1-33%) -Granulation Quality [place] -Slough/Fibrin Yes -Necrosis Amt Large (67-100%) -Necrotic Tissue Type Adherent Slough -Structure Exposed N/A -Texture (Uma-wound Skin Appearance) Assessed Scarring -Moisture (Uma-wound Skin Appearance No Abnormality ) Assessed -Color (Uma-wound Skin Appearance) No Abnormality Erythema -Temperature (Uma-wound Skin No Abnormality Appearance) (Pt Warm) -Tenderness on Palpation (Uma-wound No Skin Appearance) -Ulcer Cleansing soap and water -Foul Odor after Cleansing Yes -Anesthetic Used 4% Lidocaine Solution [Edema Assessment] -Lower Limb Edema Present No WC - Nurse 2 - General Ulcer CM Notes Start: 08/08/18 12:36 Freq: Status: Active Protocol: Activity Type Activity Date Activity User E-Sign Co-Sign Detail Recorded Client Recorded Date Recorded By Document 08/08/18 13:13 DV [id number] 08/08/18 13:21 DV 08/08/18 13:13 Wound Center Nurse 2 [Procedure/Treatment] #9 Lower Lumbar- Midline -Time 13:14 -Correct Patient Yes -Correct Side, Site, Position Yes -Correct Procedure Yes -Procedure Performed Yes -Type of Procedure Debridement -Clinical Debridement Subcutaneous -Post Debridement Size (cm) - Length 13.6 -Post Debridement Size (cm) - Width 4.2 -Post Debridement Size (cm) - Depth 0.4 -Total Square Cm 57.12 -Wound/Ulcer Outcome Not Healed -Ulcer Cleansing Rinsed/ Irrigated with Saline -Foul Odor after Cleansing No -Bioengineered Tissue No -Bleeding Controlled with Pressure -Offloading No -Treatment Response Procedure Tolerated Well [See Physician Procedure note for Specifics] Pain Scale: 0-10 Numeric [Pain] -Is Patient Pain Free? Yes Psych/Mental Status: Normal Affect, Appropriate Debridement Note Post-Debridement Measurements/Treatment WC - Nurse 2 - General Ulcer CM Notes Start: 08/08/18 12:36 Freq: Status: Active Protocol: Activity Type Activity Date Activity User E-Sign Co-Sign Detail Recorded Client Recorded Date Recorded By Document 08/08/18 13:13 DV [id number] 08/08/18 13:21 DV 08/08/18 13:13 Wound Center Nurse 2 #9 Lower Lumbar- Midline -Time 13:14 -Correct Patient Yes -Correct Side, Site, Position Yes -Correct Procedure Yes -Procedure Performed Yes -Type of Procedure Debridement -Clinical Debridement Subcutaneous -Post Debridement Size (cm) - Length 13.6 -Post Debridement Size (cm) - Width 4.2 -Post Debridement Size (cm) - Depth 0.4 -Total Square Cm 57.12 -Wound/Ulcer Outcome Not Healed -Ulcer Cleansing Rinsed/ Irrigated with Saline -Foul Odor after Cleansing No -Bioengineered Tissue No -Bleeding Controlled with Pressure -Offloading No -Treatment Response Procedure Tolerated Well Pain Scale: 0-10 Numeric Is Patient Pain Free? Yes Wound debrided: lower lumbar midline Laterality: Not Applicable Type of Debridement: Excisional debridement Anesthesia Used: 4% Lidocaine Solution Depth: Down to and including healthy tissue, in the subcutaneous layer Percentage of wound debrided: 100 Instrument Used: 5mm curette Tissue Removed: yellow slough, devitalized tissue Severity: Fat Layer Exposed Amount of bleeding with debridement: Mild Bleeding Controlled with: Compression and gauze Patient tolerated procedure well Assessment/Plan Active Problems (Last Updated 06/16/18 @ 18:13 by Charisse Couch MD) Nonhealing surgical wound (Chronic) Open wound of lower back (Chronic) Assessment: chronic surgical wound dehiscence lumbar with complex abscess and recent surgical debridement. malnutrition. other multiple comorbidities. edema bilateral lower extremities. Bleeding site from within wound controlled with combination of silver nitrate and Surgifoam. Bleeding appears to be controlled. venous insufficiency. immunocompromised status. Plan: Debridement done as documented above. Procedure was well-tolerated. Theraskin was not debrided but the rest of his wound was debrided. Wound veil will be placed over the Theraskin and will continue to use Aquacel, gauze, and KerraMaxCare with changes once daily for moderate-large amount of drainage. Continue increased protein intake. F/U in [address] Wick.
[2018-08-15 12:29] VITALS: BP 148/76; PULSE 96; RESP 16; TEMP 36.1; BMI 28.8
--- NOTE | 2018-08-15 16:24 | PCM.WC.PN ---
(1) Nonhealing surgical wound Status: Chronic Current Visit: Yes Qualifiers: Encounter type: subsequent encounter Code(s): T81.89XA - Other complications of procedures, not elsewhere classified, initial encounter (2) Open wound of lower back Status: Chronic Current Visit: Yes Code(s): S31.000A - Unspecified open wound of lower back and pelvis without penetration into retroperitoneum, initial encounter Type of Wound Date of Service: 08/15/18 Chief Complaint: Nonhealing surgical wound of lower back History of Wound: Mr. Marshall is a 73-yo who has been seen here at the wound center for a nonhealing surgical wound of his lower back s/p surgical debridement for an abscess s/p lumbar spine surgery. His original surgery on his lower back was approximately 2016 and he has had multiple complications since that time. He underwent surgical debridement on 03/04/[address] Davila at [facility] in [place] and was discharged with a wound vac for healing by secondary intention with possible muscle flap closure in the future. He followed up with his surgeon on 04/18/17 for further evaluation and recommendations and they plan to close the wound with a muscle flap but he continues to develop infections. He is also being seen by Infectious Disease as needed. CT 02/2018 did not show any abscess. Progress of Wound: Cuong is here for follow-up of his nonhealing surgical wound of his lower back. His wound is showing improvement with application of Theraskin. He has had 10 applications of Purapply with mild improvement. He saw a plastic surgeon at [facility] on 04/02/18 who is hopeful to close Cuong's surgical wound with a skin flap. He requested additional records of CT scans as well as information on radiation that was done previously. Cuong is scheduled to see the surgeon at [facility] again on August 27, 2018. He has been having increased pain in his back and left leg presumably from nerve impingement. Denies increased drainage, odor, fever or chills. - Physical Exam Vital Signs Temp Pulse Resp BP 97 F L 96 16 148/76 H 08/15/18 12:29 08/15/18 12:29 08/15/18 12:29 08/15/18 12:29 General: Alert, Oriented x3, Cooperative, No apparent distress HEENT: Atraumatic, Normocephalic Oral: Moist Mucosa Skin: Ulcer/ Wound Wound Measurements and Assessment - Nurse 1 - General Ulcer Measurement Start: 08/08/18 12:36 Freq: Status: Active Protocol: Activity Type Activity Date Activity User E-Sign Co-Sign Detail Recorded Client Recorded Date Recorded By Document 08/15/18 12:29 [facility] [id number] 08/15/18 12:34 [facility] 08/15/18 12:29 Wound Center Nurse 1 [Ulcer Assessment] #9 Lower Lumbar- Midline -Combined with other wound No -Current Size (cm) - Length 13.5 -Current Size (cm) - Width 4.7 -Current Size (cm) - Depth 0.8 -Total Square Cm 63.45 -Date of Last Picture (Recall this 08/15/18 field) -Photo Taken Yes -Epithelialization None Present -Tunneling No -Undermining/Tunneling No -Circular Undermining No -Exudate Amt Medium -Exudate Type Serosanguineous -Wound Margin Thickened & Rolled Under -Granulation Amt Medium (34-66%) -Granulation Quality [place] -Slough/Fibrin Yes -Necrosis Amt Medium (34-66%) -Necrotic Tissue Type Adherent Slough -Texture (Uma-wound Skin Appearance) Assessed Scarring -Moisture (Uma-wound Skin Appearance Assessed ) Dry/Scaly -Color (Uma-wound Skin Appearance) Assessed Erythema -Temperature (Uma-wound Skin No Abnormality Appearance) (Pt Warm) -Tenderness on Palpation (Uma-wound No Skin Appearance) -Ulcer Cleansing Wound Cleanser -Foul Odor after Cleansing No -Anesthetic Used 4% Lidocaine Solution WC - Nurse 2 - General Ulcer CM Notes Start: 08/08/18 12:36 Freq: Status: Active Protocol: Activity Type Activity Date Activity User E-Sign Co-Sign Detail Recorded Client Recorded Date Recorded By Document 08/15/18 12:59 DV [id number] 08/15/18 13:07 DV 08/15/18 12:59 Wound Center Nurse 2 [Procedure/Treatment] -Time 13:00 -Correct Patient Yes -Correct Side, Site, Position Yes -Correct Procedure Yes -Procedure Performed Yes -Type of Procedure Debridement -Clinical Debridement Subcutaneous -Post Debridement Size (cm) - Length 13.1 -Post Debridement Size (cm) - Width 4.0 -Post Debridement Size (cm) - Depth 0.4 -Total Square Cm 52.40 -Wound/Ulcer Outcome Not Healed -Ulcer Cleansing Rinsed/ Irrigated with Saline -Foul Odor after Cleansing No -Bioengineered Tissue Yes -Type of bioengineered Tissue THERASKIN -Expiration Date 02/26/22 -Product Lot Number [id number]/ [id number] -Percent Used 100 -Saline Lot Number [id number] -Topical Lidocaine (%) 5 -Bleeding Controlled with Pressure -Offloading No -Treatment Response Procedure Tolerated Well [See Physician Procedure note for Specifics] Pain Scale: 0-10 Numeric [Pain] -Is Patient Pain Free? Yes Psych/Mental Status: Normal Affect, Appropriate Debridement Note Post-Debridement Measurements/Treatment WC - Nurse 2 - General Ulcer CM Notes Start: 08/08/18 12:36 Freq: Status: Active Protocol: Activity Type Activity Date Activity User E-Sign Co-Sign Detail Recorded Client Recorded Date Recorded By Document 08/08/18 13:13 DV [id number] 08/08/18 13:21 DV Document 08/15/18 12:59 DV [id number] 08/15/18 13:07 DV 08/08/18 08/15/18 13:13 12:59 Wound Center Nurse 2 #9 Lower Lumbar- Midline -Time 13:14 13:00 -Correct Patient Yes Yes -Correct Side, Site, Position Yes Yes -Correct Procedure Yes Yes -Procedure Performed Yes Yes -Type of Procedure Debridement Debridement -Clinical Debridement Subcutaneous Subcutaneous -Post Debridement Size (cm) - Length 13.6 13.1 -Post Debridement Size (cm) - Width 4.2 4.0 -Post Debridement Size (cm) - Depth 0.4 0.4 -Total Square Cm 57.12 52.40 -Wound/Ulcer Outcome Not Healed Not Healed -Ulcer Cleansing Rinsed/ Rinsed/ Irrigated with Irrigated with Saline Saline -Foul Odor after Cleansing No No -Bioengineered Tissue No Yes -Type of bioengineered Tissue THERASKIN -Expiration Date 02/26/22 -Product Lot Number [id number]/ [id number] -Percent Used 100 -Saline Lot Number [id number] -Topical Lidocaine (%) 5 -Bleeding Controlled with Pressure Pressure -Offloading No No -Treatment Response Procedure Procedure Tolerated Well Tolerated Well Pain Scale: 0-10 Numeric Is Patient Pain Free? Yes Yes Wound debrided: lower lumbar midline Laterality: Not Applicable Type of Debridement: Excisional debridement Anesthesia Used: 4% Lidocaine Solution Depth: Down to and including healthy tissue, in the subcutaneous layer Percentage of wound debrided: 100 Instrument Used: 5mm curette Tissue Removed: yellow slough, devitalized tissue Severity: Fat Layer Exposed Amount of bleeding with debridement: Mild Bleeding Controlled with: Compression and gauze Patient tolerated procedure well Assessment/Plan Active Problems (Last Updated 06/16/18 @ 18:13 by Charisse Couch MD) Nonhealing surgical wound (Chronic) Open wound of lower back (Chronic) Assessment: chronic surgical wound dehiscence lumbar with complex abscess and recent surgical debridement. malnutrition. other multiple comorbidities. edema bilateral lower extremities. Bleeding site from within wound controlled with combination of silver nitrate and Surgifoam. Bleeding appears to be controlled. venous insufficiency. immunocompromised status. Plan: Debridement done as documented above. Procedure was well-tolerated. Residual Theraskin was debrided from initial application. Theraskin #2 was applied to the wound bed. 2 grafts (78 square cm) were placed to cover the entirety of his wound bed and dermabond and 3-0 nylon suture was used to secure Theraskin in place. Wound veil placed over the Theraskin and gauze bolstered over the wound veil and secured with the tails of the sutures tied down and will continue to use Aquacel, gauze, and KerraMaxCare with changes once daily for moderate-large amount of drainage over the gauze. Continue increased protein intake. F/U in [address] iWck.
--- NOTE | 2018-08-15 16:31 | PN.PCM_ITS ---
(1) Nonhealing surgical wound Status: Chronic Current Visit: Yes Qualifiers: Encounter type: subsequent encounter Code(s): T81.89XA - Other complications of procedures, not elsewhere classified, initial encounter (2) Open wound of lower back Status: Chronic Current Visit: Yes Code(s): S31.000A - Unspecified open wound of lower back and pelvis without penetration into retroperitoneum, initial encounter Type of Wound Date of Service: 08/15/18 Chief Complaint: Nonhealing surgical wound of lower back History of Wound: Mr. Marshall is a 73-yo who has been seen here at the wound center for a nonhealing surgical wound of his lower back s/p surgical debridement for an abscess s/p lumbar spine surgery. His original surgery on his lower back was approximately 2016 and he has had multiple complications since that time. He underwent surgical debridement on 03/04/[address] Davila at [facility] in [place] and was discharged with a wound vac for healing by secondary intention with possible muscle flap closure in the future. He followed up with his surgeon on 04/18/17 for further evaluation and recommendations and they plan to close the wound with a muscle flap but he continues to develop infections. He is also being seen by Infectious Disease as needed. CT 02/2018 did not show any abscess. Progress of Wound: Cuong is here for follow-up of his nonhealing surgical wound of his lower back. His wound is showing improvement with application of Theraskin. He has had 10 applications of Purapply with mild improvement. He saw a plastic surgeon at [facility] on 04/02/18 who is hopeful to close Cuong's surgical wound with a skin flap. He requested additional records of CT scans as well as information on radiation that was done previously. Cuong is scheduled to see the surgeon at [facility] again on August 27, 2018. He has been having increased pain in his back and left leg presumably from nerve impingement. Denies increased drainage, odor, fever or chills. - Physical Exam Vital Signs Temp Pulse Resp BP 97 F L 96 16 148/76 H 08/15/18 12:29 08/15/18 12:29 08/15/18 12:29 08/15/18 12:29 General: Alert, Oriented x3, Cooperative, No apparent distress HEENT: Atraumatic, Normocephalic Oral: Moist Mucosa Skin: Ulcer/ Wound Wound Measurements and Assessment - Nurse 1 - General Ulcer Measurement Start: 08/08/18 12:36 Freq: Status: Active Protocol: Activity Type Activity Date Activity User E-Sign Co-Sign Detail Recorded Client Recorded Date Recorded By Document 08/15/18 12:29 [facility] [id number] 08/15/18 12:34 [facility] 08/15/18 12:29 Wound Center Nurse 1 [Ulcer Assessment] #9 Lower Lumbar- Midline -Combined with other wound No -Current Size (cm) - Length 13.5 -Current Size (cm) - Width 4.7 -Current Size (cm) - Depth 0.8 -Total Square Cm 63.45 -Date of Last Picture (Recall this 08/15/18 field) -Photo Taken Yes -Epithelialization None Present -Tunneling No -Undermining/Tunneling No -Circular Undermining No -Exudate Amt Medium -Exudate Type Serosanguineous -Wound Margin Thickened & Rolled Under -Granulation Amt Medium (34-66%) -Granulation Quality [place] -Slough/Fibrin Yes -Necrosis Amt Medium (34-66%) -Necrotic Tissue Type Adherent Slough -Texture (Uma-wound Skin Appearance) Assessed Scarring -Moisture (Uma-wound Skin Appearance Assessed ) Dry/Scaly -Color (Uma-wound Skin Appearance) Assessed Erythema -Temperature (Uma-wound Skin No Abnormality Appearance) (Pt Warm) -Tenderness on Palpation (Uma-wound No Skin Appearance) -Ulcer Cleansing Wound Cleanser -Foul Odor after Cleansing No -Anesthetic Used 4% Lidocaine Solution WC - Nurse 2 - General Ulcer CM Notes Start: 08/08/18 12:36 Freq: Status: Active Protocol: Activity Type Activity Date Activity User E-Sign Co-Sign Detail Recorded Client Recorded Date Recorded By Document 08/15/18 12:59 DV [id number] 08/15/18 13:07 DV 08/15/18 12:59 Wound Center Nurse 2 [Procedure/Treatment] -Time 13:00 -Correct Patient Yes -Correct Side, Site, Position Yes -Correct Procedure Yes -Procedure Performed Yes -Type of Procedure Debridement -Clinical Debridement Subcutaneous -Post Debridement Size (cm) - Length 13.1 -Post Debridement Size (cm) - Width 4.0 -Post Debridement Size (cm) - Depth 0.4 -Total Square Cm 52.40 -Wound/Ulcer Outcome Not Healed -Ulcer Cleansing Rinsed/ Irrigated with Saline -Foul Odor after Cleansing No -Bioengineered Tissue Yes -Type of bioengineered Tissue THERASKIN -Expiration Date 02/26/22 -Product Lot Number [id number]/ [id number] -Percent Used 100 -Saline Lot Number [id number] -Topical Lidocaine (%) 5 -Bleeding Controlled with Pressure -Offloading No -Treatment Response Procedure Tolerated Well [See Physician Procedure note for Specifics] Pain Scale: 0-10 Numeric [Pain] -Is Patient Pain Free? Yes Psych/Mental Status: Normal Affect, Appropriate Debridement Note Post-Debridement Measurements/Treatment WC - Nurse 2 - General Ulcer CM Notes Start: 08/08/18 12:36 Freq: Status: Active Protocol: Activity Type Activity Date Activity User E-Sign Co-Sign Detail Recorded Client Recorded Date Recorded By Document 08/08/18 13:13 DV [id number] 08/08/18 13:21 DV Document 08/15/18 12:59 DV [id number] 08/15/18 13:07 DV 08/08/18 08/15/18 13:13 12:59 Wound Center Nurse 2 #9 Lower Lumbar- Midline -Time 13:14 13:00 -Correct Patient Yes Yes -Correct Side, Site, Position Yes Yes -Correct Procedure Yes Yes -Procedure Performed Yes Yes -Type of Procedure Debridement Debridement -Clinical Debridement Subcutaneous Subcutaneous -Post Debridement Size (cm) - Length 13.6 13.1 -Post Debridement Size (cm) - Width 4.2 4.0 -Post Debridement Size (cm) - Depth 0.4 0.4 -Total Square Cm 57.12 52.40 -Wound/Ulcer Outcome Not Healed Not Healed -Ulcer Cleansing Rinsed/ Rinsed/ Irrigated with Irrigated with Saline Saline -Foul Odor after Cleansing No No -Bioengineered Tissue No Yes -Type of bioengineered Tissue THERASKIN -Expiration Date 02/26/22 -Product Lot Number [id number]/ [id number] -Percent Used 100 -Saline Lot Number [id number] -Topical Lidocaine (%) 5 -Bleeding Controlled with Pressure Pressure -Offloading No No -Treatment Response Procedure Procedure Tolerated Well Tolerated Well Pain Scale: 0-10 Numeric Is Patient Pain Free? Yes Yes Wound debrided: lower lumbar midline Laterality: Not Applicable Type of Debridement: Excisional debridement Anesthesia Used: 4% Lidocaine Solution Depth: Down to and including healthy tissue, in the subcutaneous layer Percentage of wound debrided: 100 Instrument Used: 5mm curette Tissue Removed: yellow slough, devitalized tissue Severity: Fat Layer Exposed Amount of bleeding with debridement: Mild Bleeding Controlled with: Compression and gauze Patient tolerated procedure well Assessment/Plan Active Problems (Last Updated 06/16/18 @ 18:13 by Charisse Couch MD) Nonhealing surgical wound (Chronic) Open wound of lower back (Chronic) Assessment: chronic surgical wound dehiscence lumbar with complex abscess and recent surgical debridement. malnutrition. other multiple comorbidities. edema bilateral lower extremities. Bleeding site from within wound controlled with combination of silver nitrate and Surgifoam. Bleeding appears to be controlled. venous insufficiency. immunocompromised status. Plan: Debridement done as documented above. Procedure was well-tolerated. Residual Theraskin was debrided from initial application. Theraskin #2 was applied to the wound bed. 2 grafts (78 square cm) were placed to cover the entirety of his wound bed and dermabond and 3-0 nylon suture was used to secure Theraskin in place. Wound veil placed over the Theraskin and gauze bolstered over the wound veil and secured with the tails of the sutures tied down and will continue to use Aquacel, gauze, and KerraMaxCare with changes once daily for moderate-large amount of drainage over the gauze. Continue increased protein intake. F/U in [address] Wick.
[2018-08-22 12:36] VITALS: BP 112/72; PULSE 90; RESP 16; TEMP 35.4; BMI 28.8
--- NOTE | 2018-08-22 12:41 | WC ---
THERASKIN LEFT IN PLACE. ONLY REMOVED OUTER DRSG PER DR JONES INSTRUCTION.
--- NOTE | 2018-08-22 14:21 | PN.PCM_ITS ---
(1) Nonhealing surgical wound Status: Chronic Current Visit: Yes Qualifiers: Encounter type: subsequent encounter Qualified Code(s): T81.89XD - Other complications of procedures, not elsewhere classified, subsequent encounter Code(s): T81.89XA - Other complications of procedures, not elsewhere classified, initial encounter (2) Open wound of lower back Status: Chronic Current Visit: Yes Code(s): S31.000A - Unspecified open wound of lower back and pelvis without penetration into retroperitoneum, initial encounter (3) Venous stasis ulcer of heel with fat layer exposed Status: Acute Current Visit: Yes Qualifiers: Varicose vein presence: with varicose veins Laterality: left Qualified Code(s): I83.024 - Varicose veins of left lower extremity with ulcer of heel and midfoot; L97.422 - Non-pressure chronic ulcer of left heel and midfoot with fat layer exposed Code(s): I83.004 - Varicose veins of unspecified lower extremity with ulcer of heel and midfoot; L97.402 - Non-pressure chronic ulcer of unspecified heel and midfoot with fat layer exposed Type of Wound Date of Service: 08/22/18 Chief Complaint: Nonhealing surgical wound of lower back, ulcer of left heel History of Wound: Mr. Marshall is a 73-yo who has been seen here at the wound center for a nonhealing surgical wound of his lower back s/p surgical debridement for an abscess s/p lumbar spine surgery. His original surgery on his lower back was approximately 2016 and he has had multiple complications since that time. He underwent surgical debridement on 03/04/[address] Davila at [facility] in [place] and was discharged with a wound vac for healing by secondary intention with possible muscle flap closure in the future. He followed up with his surgeon on 04/18/17 for further evaluation and recommendations and they plan to close the wound with a muscle flap but he continues to develop infections. He is also being seen by Infectious Disease as needed. CT 02/2018 did not show any abscess. Progress of Wound: Cuong is here for follow-up of his nonhealing surgical wound of his lower back. His wound is showing improvement with application of Theraskin. Theraskin application #2 is intact to the whole wound bed with incorporation. He continues to have heavy drainage from his wound. He has a new wound on his left heel that was seen by Dr. Galaviz at his podiatry visit. It is from a callus. She debrided it on Saturday in her office. They have just been using band aids. There is a moderate amount of drainage. He has had 10 applications of Purapply with mild improvement. He saw a plastic surgeon at [facility] on 04/02/18 who is hopeful to close Cuong's surgical wound with a skin flap. He requested additional records of CT scans as well as information on radiation that was done previously. Cuong is scheduled to see the surgeon at [facility] again on August 27, 2018. He has been having increased pain in his back and left leg presumably from nerve impingement. Denies increased drainage, odor, fever or chills. - Physical Exam Vital Signs Temp Pulse Resp BP 95.7 F L 90 16 112/72 08/22/18 12:36 08/22/18 12:36 08/22/18 12:36 08/22/18 12:36 General: Alert, Oriented x3, Cooperative, No apparent distress HEENT: Atraumatic, Normocephalic Oral: Moist Mucosa Extremities: Edema Skin: Ulcer/ Wound Wound Measurements and Assessment WC - Nurse 1 - General Ulcer Measurement Start: 08/08/18 12:36 Freq: Status: Active Protocol: Activity Type Activity Date Activity User E-Sign Co-Sign Detail Recorded Client Recorded Date Recorded By Document 08/22/18 12:36 [facility] [id number] 08/22/18 12:41 [facility] 08/22/18 12:36 Wound Center Nurse 1 [Ulcer Assessment] #9 Lower Lumbar- Midline -Combined with other wound No -Current Size (cm) - Length 0.1 -Current Size (cm) - Width 0.1 -Current Size (cm) - Depth 0.1 -Total Square Cm 0.01 -Photo Taken No WC - Nurse 2 - General Ulcer CM Notes Start: 08/08/18 12:36 Freq: Status: Active Protocol: Activity Type Activity Date Activity User E-Sign Co-Sign Detail Recorded Client Recorded Date Recorded By Document 08/22/18 13:04 DV [id number] 08/22/18 13:07 DV 08/22/18 13:04 Wound Center Nurse 2 [Procedure/Treatment] #10 Left Heel -Time 13:06 -Correct Patient Yes -Correct Side, Site, Position Yes -Correct Procedure No -Procedure Performed No -Wound/Ulcer Outcome Not Healed #9 Lower Lumbar- Midline -Time 13:05 -Correct Patient Yes -Correct Side, Site, Position Yes -Correct Procedure No -Procedure Performed No -Wound/Ulcer Outcome Not Healed [See Physician Procedure note for Specifics] Pain Scale: 0-10 Numeric [Pain] -Is Patient Pain Free? Yes Psych/Mental Status: Normal Affect, Appropriate Debridement Note Post-Debridement Measurements/Treatment WC - Nurse 2 - General Ulcer CM Notes Start: 08/08/18 12:36 Freq: Status: Active Protocol: Activity Type Activity Date Activity User E-Sign Co-Sign Detail Recorded Client Recorded Date Recorded By Document 08/08/18 13:13 DV [id number] 08/08/18 13:21 DV Document 08/15/18 12:59 DV [id number] 08/15/18 13:07 DV Document 08/22/18 13:04 DV [id number] 08/22/18 13:07 DV 08/08/18 08/15/18 08/22/18 13:13 12:59 13:04 Wound Center Nurse 2 #10 Left Heel -Time 13:06 -Correct Patient Yes -Correct Side, Site, Position Yes -Correct Procedure No -Procedure Performed No -Wound/Ulcer Outcome Not Healed #9 Lower Lumbar- Midline -Time 13:14 13:00 13:05 -Correct Patient Yes Yes Yes -Correct Side, Site, Position Yes Yes Yes -Correct Procedure Yes Yes No -Procedure Performed Yes Yes No -Type of Procedure Debridement Debridement -Clinical Debridement Subcutaneous Subcutaneous -Post Debridement Size (cm) - Length 13.6 13.1 -Post Debridement Size (cm) - Width 4.2 4.0 -Post Debridement Size (cm) - Depth 0.4 0.4 -Total Square Cm 57.12 52.40 -Wound/Ulcer Outcome Not Healed Not Healed Not Healed -Ulcer Cleansing Rinsed/ Rinsed/ Irrigated with Irrigated with Saline Saline -Foul Odor after Cleansing No No -Bioengineered Tissue No Yes -Type of bioengineered Tissue THERASKIN -Expiration Date 02/26/22 -Product Lot Number [id number]/ [id number] -Percent Used 100 -Saline Lot Number [id number] -Topical Lidocaine (%) 5 -Bleeding Controlled with Pressure Pressure -Offloading No No -Treatment Response Procedure Procedure Tolerated Well Tolerated Well Pain Scale: 0-10 Numeric Is Patient Pain Free? Yes Yes Yes Wound debrided: left heel Laterality: Left No debridement was completed today - Additional Wound Wound debrided: lower lumbar midline Laterality: Not Applicable Operative Diagnosis: no debridement completed today Assessment/Plan Active Problems (Last Updated 06/16/18 @ 18:13 by Charisse Couch MD) Venous stasis ulcer of heel with fat layer exposed (Acute) Nonhealing surgical wound (Chronic) Open wound of lower back (Chronic) Assessment: chronic surgical wound dehiscence lumbar with complex abscess and recent surgical debridement. malnutrition. other multiple comorbidities. edema bilateral lower extremities. Bleeding site from within wound controlled with combination of silver nitrate and Surgifoam. Bleeding appears to be controlled. venous insufficiency. immunocompromised status. Plan: Evaluated Cuong's wounds today and Theraskin #2 is incorporating well and adhered to his wound bed completely. Dermabond and 3-0 nylon suture was intact. Wound veil was again placed over the Theraskin and gauze bolstered over the wound veil and secured with the tails of the sutures tied down and will continue to use Aquacel, gauze, and KerraMaxCare with changes once daily for heavy amount of drainage over the gauze. His left heel will use Aquacel Ag over the wound with dressings changed daily for moderate to large amount of drainage. Continue increased protein intake. F/U in [address] Wick.
[2018-08-29 08:15] VITALS: BP 116/50; PULSE 85; RESP 18; TEMP 36.2; BMI 28.8
--- NOTE | 2018-08-29 10:04 | PCM.WC.PN ---
(1) Nonhealing surgical wound Status: Chronic Current Visit: Yes Qualifiers: Encounter type: subsequent encounter Qualified Code(s): T81.89XD - Other complications of procedures, not elsewhere classified, subsequent encounter Code(s): T81.89XA - Other complications of procedures, not elsewhere classified, initial encounter (2) Open wound of lower back Status: Chronic Current Visit: Yes Code(s): S31.000A - Unspecified open wound of lower back and pelvis without penetration into retroperitoneum, initial encounter (3) Venous stasis ulcer of heel with fat layer exposed Status: Chronic Current Visit: Yes Qualifiers: Varicose vein presence: with varicose veins Laterality: left Qualified Code(s): I83.024 - Varicose veins of left lower extremity with ulcer of heel and midfoot; L97.422 - Non-pressure chronic ulcer of left heel and midfoot with fat layer exposed Code(s): I83.004 - Varicose veins of unspecified lower extremity with ulcer of heel and midfoot; L97.402 - Non-pressure chronic ulcer of unspecified heel and midfoot with fat layer exposed Type of Wound Date of Service: 08/29/18 Chief Complaint: Nonhealing surgical wound of lower back, ulcer of left heel History of Wound: Mr. Marshall is a 73-yo who has been seen here at the wound center for a nonhealing surgical wound of his lower back s/p surgical debridement for an abscess s/p lumbar spine surgery. His original surgery on his lower back was approximately 2016 and he has had multiple complications since that time. He underwent surgical debridement on 03/04/[address] aDvila at [facility] in [place] and was discharged with a wound vac for healing by secondary intention with possible muscle flap closure in the future. He followed up with his surgeon on 04/18/17 for further evaluation and recommendations and they plan to close the wound with a muscle flap but he continues to develop infections. He is also being seen by Infectious Disease as needed. CT 02/2018 did not show any abscess. Progress of Wound: Cuong is here for follow-up of his nonhealing surgical wound of his lower back. His wound is showing improvement with application of Theraskin. Theraskin application #2 is intact to the whole wound bed with incorporation. He continues to have heavy drainage from his wound. He is tolerating aquacel exrta to his heel. There is a moderate amount of drainage. He has had 10 applications of Purapply to his lower back wound with mild improvement. He saw a plastic surgeon at [facility] on 04/02/18 who is hopeful to close Cuong's surgical wound with a skin flap. He requested additional records of CT scans as well as information on radiation that was done previously. Cuong saw the surgeon at [facility] again on August 27, 2018 and he does not think a skin flap would be an option but talked about doing a skin graft from his thight to the lower back. He has been having increased pain in his back and left leg presumably from nerve impingement. Denies increased drainage, odor, fever or chills. - Physical Exam Vital Signs Temp Pulse Resp BP 97.1 F L 85 18 116/50 L 08/29/18 08:15 08/29/18 08:15 08/29/18 08:15 08/29/18 08:15 General: Alert, Oriented x3, Cooperative, No apparent distress HEENT: Atraumatic, Normocephalic Oral: Moist Mucosa Extremities: Edema Skin: Ulcer/ Wound Wound Measurements and Assessment WC - Nurse 1 - General Ulcer Measurement Start: 08/08/18 12:36 Freq: Status: Active Protocol: Activity Type Activity Date Activity User E-Sign Co-Sign Detail Recorded Client Recorded Date Recorded By Document 08/29/18 08:15 DV [id number] 08/29/18 08:39 DV 08/29/18 08:15 Wound Center Nurse 1 [Ulcer Assessment] #10 Left Heel -Combined with other wound No -Current Size (cm) - Length 2.0 -Current Size (cm) - Width 0.3 -Current Size (cm) - Depth 0.2 -Total Square Cm 0.60 -Photo Taken No -Epithelialization None Present -Tunneling No -Undermining/Tunneling No -Circular Undermining No -Classification - Thickness Full Thickness without Exposed Support Structure -Wound Margin Flat & Intact -Granulation Amt None Present (0 %) -Granulation Quality N/A -Slough/Fibrin Yes -Necrosis Amt Small (1-33%) -Necrotic Tissue Type Adherent Slough -Structure Exposed None/Limited to Skin Breakdown -Texture (Uma-wound Skin Appearance) Assessed Localized Edema -Moisture (Uma-wound Skin Appearance Assessed ) Maceration Weeping -Color (Uma-wound Skin Appearance) Assessed Erythema -Temperature (Uma-wound Skin No Abnormality Appearance) (Pt Warm) -Tenderness on Palpation (Uma-wound No Skin Appearance) -Ulcer Cleansing Rinsed/ Irrigated with Saline -Foul Odor after Cleansing No -Anesthetic Used 5% Lidocaine Gel #9 Lower Lumbar- Midline -Combined with other wound No -Current Size (cm) - Length 13.1 -Current Size (cm) - Width 4.0 -Current Size (cm) - Depth 0.4 -Total Square Cm 52.40 -Photo Taken No -Epithelialization Small 1-33% -Tunneling No -Undermining/Tunneling No -Circular Undermining No -Exudate Amt Large -Exudate Type Serosanguineous -Wound Margin Indistinct, Non -Visible -Granulation Amt Small (1-33%) -Granulation Quality Pale Red -Slough/Fibrin Yes -Necrosis Amt Large (67-100%) -Necrotic Tissue Type Adherent Slough -Structure Exposed Muscle Fat Layer Exposed -Texture (Uma-wound Skin Appearance) Localized Edema Scarring -Moisture (Uma-wound Skin Appearance Assessed ) Weeping -Color (Uma-wound Skin Appearance) No Abnormality Assessed -Temperature (Uma-wound Skin No Abnormality Appearance) (Pt Warm) -Tenderness on Palpation (Uma-wound No Skin Appearance) -Ulcer Cleansing Rinsed/ Irrigated with Saline -Foul Odor after Cleansing Yes -Anesthetic Used 4% Lidocaine Solution 5% Lidocaine Gel [Edema Assessment] -Lower Limb Edema Present No WC - Nurse 2 - General Ulcer CM Notes Start: 08/08/18 12:36 Freq: Status: Active Protocol: Activity Type Activity Date Activity User E-Sign Co-Sign Detail Recorded Client Recorded Date Recorded By Document 08/29/18 08:39 DV [id number] 08/29/18 09:09 DV 08/29/18 08:39 Wound Center Nurse 2 [Procedure/Treatment] #10 Left Heel -Time 08:40 -Correct Patient Yes -Correct Side, Site, Position Yes -Correct Procedure Yes -Procedure Performed Yes -Type of Procedure Debridement -Clinical Debridement Subcutaneous -Post Debridement Size (cm) - Length 0.2 -Post Debridement Size (cm) - Width 2.2 -Post Debridement Size (cm) - Depth 0.1 -Total Square Cm 0.44 -Wound/Ulcer Outcome Not Healed -Ulcer Cleansing Rinsed/ Irrigated with Saline -Foul Odor after Cleansing No -Bioengineered Tissue No -Bleeding Controlled with Pressure -Offloading No -Treatment Response Procedure Tolerated Well #9 Lower Lumbar- Midline -Time 08:41 -Correct Patient Yes -Correct Side, Site, Position Yes -Correct Procedure Yes -Procedure Performed Yes -Type of Procedure Debridement -Clinical Debridement Subcutaneous -Post Debridement Size (cm) - Length 13.2 -Post Debridement Size (cm) - Width 4.2 -Post Debridement Size (cm) - Depth 0.4 -Total Square Cm 55.44 -Wound/Ulcer Outcome Not Healed -Bleeding Controlled with Pressure SURGIFOAM -Offloading No -Treatment Response Procedure Tolerated Well [See Physician Procedure note for Specifics] Pain Scale: 0-10 Numeric [Pain] -Is Patient Pain Free? Yes Psych/Mental Status: Normal Affect, Appropriate Debridement Note Post-Debridement Measurements/Treatment WC - Nurse 2 - General Ulcer CM Notes Start: 08/08/18 12:36 Freq: Status: Active Protocol: Activity Type Activity Date Activity User E-Sign Co-Sign Detail Recorded Client Recorded Date Recorded By Document 08/08/18 13:13 DV [id number] 08/08/18 13:21 DV Document 08/15/18 12:59 DV [id number] 08/15/18 13:07 DV Document 08/22/18 13:04 DV [id number] 08/22/18 13:07 DV Document 08/29/18 08:39 DV [id number] 08/29/18 09:09 DV 08/08/18 08/15/18 08/22/18 13:13 12:59 13:04 Wound Center Nurse 2 #10 Left Heel -Time 13:06 -Correct Patient Yes -Correct Side, Site, Position Yes -Correct Procedure No -Procedure Performed No -Type of Procedure -Clinical Debridement -Post Debridement Size (cm) - Length -Post Debridement Size (cm) - Width -Post Debridement Size (cm) - Depth -Total Square Cm -Wound/Ulcer Outcome Not Healed -Ulcer Cleansing -Foul Odor after Cleansing -Bioengineered Tissue -Bleeding Controlled with -Offloading -Treatment Response #9 Lower Lumbar- Midline -Time 13:14 13:00 13:05 -Correct Patient Yes Yes Yes -Correct Side, Site, Position Yes Yes Yes -Correct Procedure Yes Yes No -Procedure Performed Yes Yes No -Type of Procedure Debridement Debridement -Clinical Debridement Subcutaneous Subcutaneous -Post Debridement Size (cm) - Length 13.6 13.1 -Post Debridement Size (cm) - Width 4.2 4.0 -Post Debridement Size (cm) - Depth 0.4 0.4 -Total Square Cm 57.12 52.40 -Wound/Ulcer Outcome Not Healed Not Healed Not Healed -Ulcer Cleansing Rinsed/ Rinsed/ Irrigated with Irrigated with Saline Saline -Foul Odor after Cleansing No No -Bioengineered Tissue No Yes -Type of bioengineered Tissue THERASKIN -Expiration Date 02/26/22 -Product Lot Number [id number]/ [id number] -Percent Used 100 -Saline Lot Number [id number] -Topical Lidocaine (%) 5 -Bleeding Controlled with Pressure Pressure -Offloading No No -Treatment Response Procedure Procedure Tolerated Well Tolerated Well Pain Scale: 0-10 Numeric Is Patient Pain Free? Yes Yes Yes 08/29/18 08:39 Wound Center Nurse 2 #10 Left Heel -Time 08:40 -Correct Patient Yes -Correct Side, Site, Position Yes -Correct Procedure Yes -Procedure Performed Yes -Type of Procedure Debridement -Clinical Debridement Subcutaneous -Post Debridement Size (cm) - Length 0.2 -Post Debridement Size (cm) - Width 2.2 -Post Debridement Size (cm) - Depth 0.1 -Total Square Cm 0.44 -Wound/Ulcer Outcome Not Healed -Ulcer Cleansing Rinsed/ Irrigated with Saline -Foul Odor after Cleansing No -Bioengineered Tissue No -Bleeding Controlled with Pressure -Offloading No -Treatment Response Procedure Tolerated Well #9 Lower Lumbar- Midline -Time 08:41 -Correct Patient Yes -Correct Side, Site, Position Yes -Correct Procedure Yes -Procedure Performed Yes -Type of Procedure Debridement -Clinical Debridement Subcutaneous -Post Debridement Size (cm) - Length 13.2 -Post Debridement Size (cm) - Width 4.2 -Post Debridement Size (cm) - Depth 0.4 -Total Square Cm 55.44 -Wound/Ulcer Outcome Not Healed -Ulcer Cleansing -Foul Odor after Cleansing -Bioengineered Tissue -Type of bioengineered Tissue -Expiration Date -Product Lot Number -Percent Used -Saline Lot Number -Topical Lidocaine (%) -Bleeding Controlled with Pressure SURGIFOAM -Offloading No -Treatment Response Procedure Tolerated Well Pain Scale: 0-10 Numeric Is Patient Pain Free? Yes Wound debrided: left heel Laterality: Left Type of Debridement: Excisional debridement Anesthesia Used: 4% Lidocaine Solution, 5% Lidocaine Gel Depth: Down to and including healthy tissue, in the subcutaneous layer Percentage of wound debrided: 100 Instrument Used: 3mm curette Tissue Removed: yellow slough, devitalized tissue Severity: Fat Layer Exposed Amount of bleeding with debridement: Mild Bleeding Controlled with: Compression and gauze Patient tolerated procedure well - Additional Wound Wound debrided: lower lumbar midline Laterality: Not Applicable Type of Debridement: Excisional debridement Anesthesia Used: 4% Lidocaine Solution, 5% Lidocaine Gel Depth: Down to and including healthy tissue, in the subcutaneous layer Percentage of wound debrided: 100 Instrument Used: 5mm curette Tissue Removed: Theraskin residual, yellow slough and devitalized tissue Severity: Fat Layer Exposed Amount of bleeding with debridement: Mild Bleeding Controlled with: Compression and gauze Patient tolerated procedure: Patient tolerated procedure well Assessment/Plan Active Problems (Last Updated 06/16/18 @ 18:13 by Charisse Couch MD) Venous stasis ulcer of heel with fat layer exposed (Chronic) Nonhealing surgical wound (Chronic) Open wound of lower back (Chronic) Assessment: chronic surgical wound dehiscence lumbar with complex abscess and recent surgical debridement. malnutrition. other multiple comorbidities. edema bilateral lower extremities. Bleeding site from within wound controlled with combination of silver nitrate and Surgifoam. Bleeding appears to be controlled. venous insufficiency. immunocompromised status. Plan: Evaluated Cuong's wounds today and debrided Theraskin #2 and his left heel. There has been some improvement in the edges of his lumbar wound. His heel wound was slightly macerated this morning. Theraskin #3 applied per weir fisher guidelines post debridement and secured with Dermabond and 3-0 nylon suture. Wound veil was again placed over the Theraskin and gauze bolstered over the wound veil and secured with the tails of the sutures tied down and will continue to use Aquacel, gauze, and KerraMaxCare with changes once daily for heavy amount of drainage over the gauze. His left heel will change to Guera over the wound with dressings changed daily for moderate to large amount of drainage. Continue increased protein intake. F/U in [address] Wick.
--- NOTE | 2018-08-29 10:11 | PN.PCM_ITS ---
(1) Nonhealing surgical wound Status: Chronic Current Visit: Yes Qualifiers: Encounter type: subsequent encounter Qualified Code(s): T81.89XD - Other complications of procedures, not elsewhere classified, subsequent encounter Code(s): T81.89XA - Other complications of procedures, not elsewhere classified, initial encounter (2) Open wound of lower back Status: Chronic Current Visit: Yes Code(s): S31.000A - Unspecified open wound of lower back and pelvis without penetration into retroperitoneum, initial encounter (3) Venous stasis ulcer of heel with fat layer exposed Status: Chronic Current Visit: Yes Qualifiers: Varicose vein presence: with varicose veins Laterality: left Qualified Code(s): I83.024 - Varicose veins of left lower extremity with ulcer of heel and midfoot; L97.422 - Non-pressure chronic ulcer of left heel and midfoot with fat layer exposed Code(s): I83.004 - Varicose veins of unspecified lower extremity with ulcer of heel and midfoot; L97.402 - Non-pressure chronic ulcer of unspecified heel and midfoot with fat layer exposed Type of Wound Date of Service: 08/29/18 Chief Complaint: Nonhealing surgical wound of lower back, ulcer of left heel History of Wound: Mr. Marshall is a 73-yo who has been seen here at the wound center for a nonhealing surgical wound of his lower back s/p surgical debridement for an abscess s/p lumbar spine surgery. His original surgery on his lower back was approximately 2016 and he has had multiple complications since that time. He underwent surgical debridement on 03/04/[address] Davila at [facility] in [place] and was discharged with a wound vac for healing by secondary intention with possible muscle flap closure in the future. He followed up with his surgeon on 04/18/17 for further evaluation and recommendations and they plan to close the wound with a muscle flap but he continues to develop infections. He is also being seen by Infectious Disease as needed. CT 02/2018 did not show any abscess. Progress of Wound: Cuong is here for follow-up of his nonhealing surgical wound of his lower back. His wound is showing improvement with application of Theraskin. Theraskin application #2 is intact to the whole wound bed with incorporation. He continues to have heavy drainage from his wound. He is tolerating aquacel exrta to his heel. There is a moderate amount of drainage. He has had 10 applications of Purapply to his lower back wound with mild improvement. He saw a plastic [facility] on 04/[facility]18 who is hopeful to close Cuong's surgical wound with a skin flap. He requested additional records of CT scans as well as information on radiation that was done previously. Cuong saw the surgeon at [facility] again on August 27, 2018 and he does not think a skin flap would be an option but talked about doing a skin graft from his thight to the lower back. He has been having increased pain in his back and left leg presumably from nerve impingement. Denies increased drainage, odor, fever or chills. - Physical Exam Vital Signs Temp Pulse Resp BP 97.1 F L 85 18 116/50 L 08/29/18 08:15 08/29/18 08:15 08/29/18 08:15 08/29/18 08:15 General: Alert, Oriented x3, Cooperative, No apparent distress HEENT: Atraumatic, Normocephalic Oral: Moist Mucosa Extremities: Edema Skin: Ulcer/ Wound Wound Measurements and Assessment WC - Nurse 1 - General Ulcer Measurement Start: 08/08/18 12:36 Freq: Status: Active Protocol: Activity Type Activity Date Activity User E-Sign Co-Sign Detail Recorded Client Recorded Date Recorded By Document 08/29/18 08:15 DV [id number] 08/29/18 08:39 DV 08/29/18 08:15 Wound Center Nurse 1 [Ulcer Assessment] #10 Left Heel -Combined with other wound No -Current Size (cm) - Length 2.0 -Current Size (cm) - Width 0.3 -Current Size (cm) - Depth 0.2 -Total Square Cm 0.60 -Photo Taken No -Epithelialization None Present -Tunneling No -Undermining/Tunneling No -Circular Undermining No -Classification - Thickness Full Thickness without Exposed Support Structure -Wound Margin Flat & Intact -Granulation Amt None Present (0 %) -Granulation Quality N/A -Slough/Fibrin Yes -Necrosis Amt Small (1-33%) -Necrotic Tissue Type Adherent Slough -Structure Exposed None/Limited to Skin Breakdown -Texture (Uma-wound Skin Appearance) Assessed Localized Edema -Moisture (Uma-wound Skin Appearance Assessed ) Maceration Weeping -Color (Uma-wound Skin Appearance) Assessed Erythema -Temperature (Uma-wound Skin No Abnormality Appearance) (Pt Warm) -Tenderness on Palpation (Uma-wound No Skin Appearance) -Ulcer Cleansing Rinsed/ Irrigated with Saline -Foul Odor after Cleansing No -Anesthetic Used 5% Lidocaine Gel #9 Lower Lumbar- Midline -Combined with other wound No -Current Size (cm) - Length 13.1 -Current Size (cm) - Width 4.0 -Current Size (cm) - Depth 0.4 -Total Square Cm 52.40 -Photo Taken No -Epithelialization Small 1-33% -Tunneling No -Undermining/Tunneling No -Circular Undermining No -Exudate Amt Large -Exudate Type Serosanguineous -Wound Margin Indistinct, Non -Visible -Granulation Amt Small (1-33%) -Granulation Quality Pale Red -Slough/Fibrin Yes -Necrosis Amt Large (67-100%) -Necrotic Tissue Type Adherent Slough -Structure Exposed Muscle Fat Layer Exposed -Texture (Uma-wound Skin Appearance) Localized Edema Scarring -Moisture (Uma-wound Skin Appearance Assessed ) Weeping -Color (Uma-wound Skin Appearance) No Abnormality Assessed -Temperature (Uma-wound Skin No Abnormality Appearance) (Pt Warm) -Tenderness on Palpation (Uma-wound No Skin Appearance) -Ulcer Cleansing Rinsed/ Irrigated with Saline -Foul Odor after Cleansing Yes -Anesthetic Used 4% Lidocaine Solution 5% Lidocaine Gel [Edema Assessment] -Lower Limb Edema Present No WC - Nurse 2 - General Ulcer CM Notes Start: 08/08/18 12:36 Freq: Status: Active Protocol: Activity Type Activity Date Activity User E-Sign Co-Sign Detail Recorded Client Recorded Date Recorded By Document 08/29/18 08:39 DV [id number] 08/29/18 09:09 DV 08/29/18 08:39 Wound Center Nurse 2 [Procedure/Treatment] #10 Left Heel -Time 08:40 -Correct Patient Yes -Correct Side, Site, Position Yes -Correct Procedure Yes -Procedure Performed Yes -Type of Procedure Debridement -Clinical Debridement Subcutaneous -Post Debridement Size (cm) - Length 0.2 -Post Debridement Size (cm) - Width 2.2 -Post Debridement Size (cm) - Depth 0.1 -Total Square Cm 0.44 -Wound/Ulcer Outcome Not Healed -Ulcer Cleansing Rinsed/ Irrigated with Saline -Foul Odor after Cleansing No -Bioengineered Tissue No -Bleeding Controlled with Pressure -Offloading No -Treatment Response Procedure Tolerated Well #9 Lower Lumbar- Midline -Time 08:41 -Correct Patient Yes -Correct Side, Site, Position Yes -Correct Procedure Yes -Procedure Performed Yes -Type of Procedure Debridement -Clinical Debridement Subcutaneous -Post Debridement Size (cm) - Length 13.2 -Post Debridement Size (cm) - Width 4.2 -Post Debridement Size (cm) - Depth 0.4 -Total Square Cm 55.44 -Wound/Ulcer Outcome Not Healed -Bleeding Controlled with Pressure SURGIFOAM -Offloading No -Treatment Response Procedure Tolerated Well [See Physician Procedure note for Specifics] Pain Scale: 0-10 Numeric [Pain] -Is Patient Pain Free? Yes Psych/Mental Status: Normal Affect, Appropriate Debridement Note Post-Debridement Measurements/Treatment WC - Nurse 2 - General Ulcer CM Notes Start: 08/08/18 12:36 Freq: Status: Active Protocol: Activity Type Activity Date Activity User E-Sign Co-Sign Detail Recorded Client Recorded Date Recorded By Document 08/08/18 13:13 DV [id number] 08/08/18 13:21 DV Document 08/15/18 12:59 DV [id number] 08/15/18 13:07 DV Document 08/22/18 13:04 DV [id number] 08/22/18 13:07 DV Document 08/29/18 08:39 DV [email or web address] 08/29/18 09:09 DV 08/08/18 08/15/18 08/22/18 13:13 12:59 13:04 Wound Center Nurse 2 #10 Left Heel -Time 13:06 -Correct Patient Yes -Correct Side, Site, Position Yes -Correct Procedure No -Procedure Performed No -Type of Procedure -Clinical Debridement -Post Debridement Size (cm) - Length -Post Debridement Size (cm) - Width -Post Debridement Size (cm) - Depth -Total Square Cm -Wound/Ulcer Outcome Not Healed -Ulcer Cleansing -Foul Odor after Cleansing -Bioengineered Tissue -Bleeding Controlled with -Offloading -Treatment Response #9 Lower Lumbar- Midline -Time 13:14 13:00 13:05 -Correct Patient Yes Yes Yes -Correct Side, Site, Position Yes Yes Yes -Correct Procedure Yes Yes No -Procedure Performed Yes Yes No -Type of Procedure Debridement Debridement -Clinical Debridement Subcutaneous Subcutaneous -Post Debridement Size (cm) - Length 13.6 13.1 -Post Debridement Size (cm) - Width 4.2 4.0 -Post Debridement Size (cm) - Depth 0.4 0.4 -Total Square Cm 57.12 52.40 -Wound/Ulcer Outcome Not Healed Not Healed Not Healed -Ulcer Cleansing Rinsed/ Rinsed/ Irrigated with Irrigated with Saline Saline -Foul Odor after Cleansing No No -Bioengineered Tissue No Yes -Type of bioengineered Tissue THERASKIN -Expiration Date 02/26/22 -Product Lot Number [id number]/ [id number] -Percent Used 100 -Saline Lot Number [id number] -Topical Lidocaine (%) 5 -Bleeding Controlled with Pressure Pressure -Offloading No No -Treatment Response Procedure Procedure Tolerated Well Tolerated Well Pain Scale: 0-10 Numeric Is Patient Pain Free? Yes Yes Yes 08/29/18 08:39 Wound Center Nurse 2 #10 Left Heel -Time 08:40 -Correct Patient Yes -Correct Side, Site, Position Yes -Correct Procedure Yes -Procedure Performed Yes -Type of Procedure Debridement -Clinical Debridement Subcutaneous -Post Debridement Size (cm) - Length 0.2 -Post Debridement Size (cm) - Width 2.2 -Post Debridement Size (cm) - Depth 0.1 -Total Square Cm 0.44 -Wound/Ulcer Outcome Not Healed -Ulcer Cleansing Rinsed/ Irrigated with Saline -Foul Odor after Cleansing No -Bioengineered Tissue No -Bleeding Controlled with Pressure -Offloading No -Treatment Response Procedure Tolerated Well #9 Lower Lumbar- Midline -Time 08:41 -Correct Patient Yes -Correct Side, Site, Position Yes -Correct Procedure Yes -Procedure Performed Yes -Type of Procedure Debridement -Clinical Debridement Subcutaneous -Post Debridement Size (cm) - Length 13.2 -Post Debridement Size (cm) - Width 4.2 -Post Debridement Size (cm) - Depth 0.4 -Total Square Cm 55.44 -Wound/Ulcer Outcome Not Healed -Ulcer Cleansing -Foul Odor after Cleansing -Bioengineered Tissue -Type of bioengineered Tissue -Expiration Date -Product Lot Number -Percent Used -Saline Lot Number -Topical Lidocaine (%) -Bleeding Controlled with Pressure SURGIFOAM -Offloading No -Treatment Response Procedure Tolerated Well Pain Scale: 0-10 Numeric Is Patient Pain Free? Yes Wound debrided: left heel Laterality: Left Type of Debridement: Excisional debridement Anesthesia Used: 4% Lidocaine Solution, 5% Lidocaine Gel Depth: Down to and including healthy tissue, in the subcutaneous layer Percentage of wound debrided: 100 Instrument Used: 3mm curette Tissue Removed: yellow slough, devitalized tissue Severity: Fat Layer Exposed Amount of bleeding with debridement: Mild Bleeding Controlled with: Compression and gauze Patient tolerated procedure well - Additional Wound Wound debrided: lower lumbar midline Laterality: Not Applicable Type of Debridement: Excisional debridement Anesthesia Used: 4% Lidocaine Solution, 5% Lidocaine Gel Depth: Down to and including healthy tissue, in the subcutaneous layer Percentage of wound debrided: 100 Instrument Used: 5mm curette Tissue Removed: Theraskin residual, yellow slough and devitalized tissue Severity: Fat Layer Exposed Amount of bleeding with debridement: Mild Bleeding Controlled with: Compression and gauze Patient tolerated procedure: Patient tolerated procedure well Assessment/Plan Active Problems (Last Updated 06/16/18 @ 18:13 by Charisse Couch MD) Venous stasis ulcer of heel with fat layer exposed (Chronic) Nonhealing surgical wound (Chronic) Open wound of lower back (Chronic) Assessment: chronic surgical wound dehiscence lumbar with complex abscess and recent surgical debridement. malnutrition. other multiple comorbidities. edema bilateral lower extremities. Bleeding site from within wound controlled with combination of silver nitrate and Surgifoam. Bleeding appears to be controlled. venous insufficiency. immunocompromised status. Plan: Evaluated Cuong's wounds today and debrided Theraskin #2 and his left heel. There has been some improvement in the edges of his lumbar wound. His heel wound was slightly macerated this morning. Theraskin #3 applied per director of corporate sponsorships guidelines post debridement and secured with Dermabond and 3-0 nylon suture. Wound veil was again placed over the Theraskin and gauze bolstered over the wound veil and secured with the tails of the sutures tied down and will continue to use Aquacel, gauze, and KerraMaxCare with changes once daily for heavy amount of drainage over the gauze. His left heel will change to Guera over the wound with dressings changed daily for moderate to large amount of drainage. Continue increased protein intake. F/U in [address] Wick.
== END 2018-09-02 23:59 ==
LOC: WC 08:00
PROVIDERS: Family Provider Family Medicine; PCP Family Medicine; Referring Provider Family Medicine; Visit Provider Family Medicine
DX: T81.30XA Disruption of wound, unspecified, initial encounter (principal); L03.312 Cellulitis of back [any part except buttock and flank]; Y83.8 Other surgical procedures as the cause of abnormal reaction of the patient, or of later complication, without mention of misadventure at the time of the procedure; I87.2 Venous insufficiency (chronic) (peripheral)
CPT/HCPCS: 11042; 11045; 15271; 15272; 36415; 80069; 82728; 83540; 83550; 85014; 85018; 96372; 99213; Q4121; G0463; Q5106

== ENCOUNTER → 2018-09-08 14:29 | Outpatient (CLI) | payer MEDICARE, OTHER, SELFPAY ==
[2015-10-31 10:00] VITALS: BMI 34.9
[2018-08-15 12:29] VITALS: BMI 28.8
[2018-09-05 12:38] VITALS: BMI 28.8
[2018-09-08 14:47] VITALS: BP 114/62; PULSE 83; RESP 16; TEMP 36.8; O2SAT 94; BMI 28.5
[2018-09-08 14:51] LABS: Hematocrit 27.2 % (40-54); Hemoglobin 8.4 g/dl (13.0-16.5)
[2018-09-08] MEDS: Epoetin Alfa-epbx 40,000 UNIT/ML 26000 UNIT SC (15:25)
== END ==
PROVIDERS: Family Provider Family Medicine; PCP Family Medicine; Referring Provider Internal Medicine Nephrology; Visit Provider Internal Medicine Nephrology
DX: N18.3 Chronic kidney disease, stage 3 (moderate) (principal); D63.1 Anemia in chronic kidney disease
CPT/HCPCS: 36415; 85014; 85018; 96372; Q5106

== ENCOUNTER → 2018-09-22 14:28 | Outpatient (CLI) | payer MEDICARE, OTHER, SELFPAY ==
[2015-10-31 10:00] VITALS: BMI 34.9
[2018-09-08 14:47] VITALS: BMI 28.5
[2018-09-19 12:40] VITALS: BMI 28.8
[2018-09-22 14:42] VITALS: BP 101/52; PULSE 86; RESP 16; O2SAT 96; BMI 28.1
[2018-09-22 14:53] LABS: Hematocrit 26.3 % (40-54); Hemoglobin 8.1 g/dl (13.0-16.5)
[2018-09-22 15:05] LABS: Albumin, Serum 1.9 g/dL (3.2-5.0); BUN 22 mg/dL (7-18); BUN/Creat Ratio 14.4 RATIO (10-20); Calcium,Total 7.6 mg/dL (8.5-10.1); Chloride 104 mmol/L (98-107); Creatinine, Serum 1.53 mg/dL (0.70-1.30); EST Glomerular Filtration Rate 48 mL/min (>60); Est Glom Filt Rate - Afr Amer 57 mL/min (>60); Estimated Creatinine Clearance 40.98 ml/min; Glucose 121 mg/dL (74-106); Phosphorus 2.9 mg/dL (2.5-4.9); Potassium 3.8 mmol/L (3.5-5.1); Sodium Level 138 mmol/L (136-145)
[2018-09-22] MEDS: Epoetin Alfa-epbx 40,000 UNIT/ML 26000 UNIT SC (15:08)
== END ==
PROVIDERS: Family Provider Family Medicine; PCP Family Medicine; Visit Provider Internal Medicine Nephrology
DX: N18.3 Chronic kidney disease, stage 3 (moderate) (principal); D63.1 Anemia in chronic kidney disease
CPT/HCPCS: 36415; 80069; 85014; 85018; 96372; Q5106

== ENCOUNTER 2018-10-03 12:30 | Outpatient (RCR) | payer MEDICARE, OTHER, SELFPAY ==
[2015-10-31 10:00] VITALS: BMI 34.9
[2018-09-03 00:56] VITALS: BP 116/50; PULSE 85; RESP 18; TEMP 36.2
[2018-09-05 12:38] VITALS: BP 123/71; PULSE 90; RESP 16; TEMP 36.5; BMI 28.8
--- NOTE | 2018-09-05 14:21 | PCM.WC.PN ---
(1) Venous stasis ulcer of heel with fat layer exposed Status: Chronic Current Visit: Yes Qualifiers: Varicose vein presence: with varicose veins Laterality: left Qualified Code(s): I83.024 - Varicose veins of left lower extremity with ulcer of heel and midfoot; L97.422 - Non-pressure chronic ulcer of left heel and midfoot with fat layer exposed Code(s): I83.004 - Varicose veins of unspecified lower extremity with ulcer of heel and midfoot; L97.402 - Non-pressure chronic ulcer of unspecified heel and midfoot with fat layer exposed (2) Nonhealing surgical wound Status: Chronic Current Visit: Yes Qualifiers: Encounter type: subsequent encounter Code(s): T81.89XA - Other complications of procedures, not elsewhere classified, initial encounter Type of Wound Date of Service: 09/05/18 Chief Complaint: Nonhealing surgical wound of lower back, ulcer of left heel History of Wound: Mr. Marshall is a 73-yo who has been seen here at the wound center for a nonhealing surgical wound of his lower back s/p surgical debridement for an abscess s/p lumbar spine surgery. His original surgery on his lower back was approximately 2016 and he has had multiple complications since that time. He underwent surgical debridement on 03/04/[address] Davila at [facility] in [place] and was discharged with a wound vac for healing by secondary intention with possible muscle flap closure in the future. He followed up with his surgeon on 04/18/17 for further evaluation and recommendations and they plan to close the wound with a muscle flap but he continues to develop infections. He is also being seen by Infectious Disease as needed. CT 02/2018 did not show any abscess. Progress of Wound: Cuong is here for follow-up of his nonhealing surgical wound of his lower back. His wound is showing improvement with application of Theraskin. Theraskin application #3 is intact to the whole wound bed with incorporation. He continues to have heavy drainage from his wound. He is tolerating Guera to his heel. There is a moderate amount of drainage. He has had 10 applications of Purapply to his lower back wound with mild improvement. He saw a plastic surgeon at [facility] on 04/02/18 who is hopeful to close Cuong's surgical wound with a skin flap. He requested additional records of CT scans as well as information on radiation that was done previously. Cuong saw the surgeon at [facility] again on August 27, 2018 and he does not think a skin flap would be an option but talked about doing a skin graft from his thight to the lower back. He has been having increased pain in his back and left leg presumably from nerve impingement. Denies increased drainage, odor, fever or chills. - Physical Exam Vital Signs Temp Pulse Resp BP 97.7 F L 90 16 123/71 H 09/05/18 12:38 09/05/18 12:38 09/05/18 12:38 09/05/18 12:38 General: Alert, Oriented x3, Cooperative, No apparent distress HEENT: Atraumatic, Normocephalic Oral: Moist Mucosa Extremities: Edema Skin: Ulcer/ Wound Wound Measurements and Assessment WC - Nurse 1 - General Ulcer Measurement Start: 09/05/18 12:38 Freq: Status: Active Protocol: Activity Type Activity Date Activity User E-Sign Co-Sign Detail Recorded Client Recorded Date Recorded By Document 09/05/18 12:38 [facility] [id number] 09/05/18 12:46 [facility] 09/05/18 12:38 Wound Center Nurse 1 [Ulcer Assessment] #10 Left Heel -Combined with other wound No -Current Size (cm) - Length 0.2 -Current Size (cm) - Width 0.2 -Current Size (cm) - Depth 0.1 -Total Square Cm 0.04 -Photo Taken No -Epithelialization Medium 34-66% -Tunneling No -Undermining/Tunneling No -Circular Undermining No -Exudate Amt Small -Exudate Type Serous -Wound Margin Distinct, Outline Attached -Granulation Amt Large (67-100%) -Granulation Quality Eliza -Slough/Fibrin No -Necrosis Amt None Present (0 %) -Texture (Uma-wound Skin Appearance) Scarring -Moisture (Uma-wound Skin Appearance Assessed ) Maceration -Color (Uma-wound Skin Appearance) Erythema Palor -Temperature (Uma-wound Skin No Abnormality Appearance) (Pt Warm) -Tenderness on Palpation (Uma-wound No Skin Appearance) -Ulcer Cleansing Rinsed/ Irrigated with Saline -Foul Odor after Cleansing No -Anesthetic Used 5% Lidocaine Gel #9 Lower Lumbar- Midline -Combined with other wound No -Current Size (cm) - Length 0.1 -Current Size (cm) - Width 0.1 -Current Size (cm) - Depth 0.1 -Total Square Cm 0.01 -Photo Taken No WC - Nurse 2 - General Ulcer CM Notes Start: 09/05/18 12:38 Freq: Status: Active Protocol: Activity Type Activity Date Activity User E-Sign Co-Sign Detail Recorded Client Recorded Date Recorded By Document 09/05/18 13:12 DV [id number] 09/05/18 13:17 DV 09/05/18 13:12 Wound Center Nurse 2 [Procedure/Treatment] #10 Left Heel -Time 13:13 -Correct Patient Yes -Correct Side, Site, Position Yes -Correct Procedure Yes -Procedure Performed Yes -Type of Procedure Debridement -Clinical Debridement Subcutaneous -Post Debridement Size (cm) - Length 1.0 -Post Debridement Size (cm) - Width 0.1 -Post Debridement Size (cm) - Depth 0.1 -Total Square Cm 0.10 -Wound/Ulcer Outcome Not Healed -Bleeding Controlled with Pressure -Offloading No -Treatment Response Procedure Tolerated Well [See Physician Procedure note for Specifics] Pain Scale: 0-10 Numeric [Pain] -Is Patient Pain Free? Yes Psych/Mental Status: Normal Affect, Appropriate Debridement Note Post-Debridement Measurements/Treatment ELIZABETH - Nurse 2 - General Ulcer CM Notes Start: 09/05/18 12:38 Freq: Status: Active Protocol: Activity Type Activity Date Activity User E-Sign Co-Sign Detail Recorded Client Recorded Date Recorded By Document 09/05/18 13:12 DV [id number] 09/05/18 13:17 DV 09/05/18 13:12 Wound Center Nurse 2 #10 Left Heel -Time 13:13 -Correct Patient Yes -Correct Side, Site, Position Yes -Correct Procedure Yes -Procedure Performed Yes -Type of Procedure Debridement -Clinical Debridement Subcutaneous -Post Debridement Size (cm) - Length 1.0 -Post Debridement Size (cm) - Width 0.1 -Post Debridement Size (cm) - Depth 0.1 -Total Square Cm 0.10 -Wound/Ulcer Outcome Not Healed -Bleeding Controlled with Pressure -Offloading No -Treatment Response Procedure Tolerated Well Pain Scale: 0-10 Numeric Is Patient Pain Free? Yes Wound debrided: left heel Laterality: Left Type of Debridement: Excisional debridement Anesthesia Used: 4% Lidocaine Solution, 5% Lidocaine Gel Depth: Down to and including healthy tissue Percentage of wound debrided: 100 Instrument Used: 3mm curette Tissue Removed: yellow slough, devitalized tissue Severity: Fat Layer Exposed Amount of bleeding with debridement: Mild Bleeding Controlled with: Compression and gauze Patient tolerated procedure well - Additional Wound Wound debrided: lower lumbar midline Laterality: Not Applicable Operative Diagnosis: no debridement was completed due to allowing Theraskin to incoorporate Assessment/Plan Active Problems (Last Updated 06/16/18 @ 18:13 by Charisse Couch MD) Venous stasis ulcer of heel with fat layer exposed (Chronic) Nonhealing surgical wound (Chronic) Assessment: chronic surgical wound dehiscence lumbar with complex abscess and recent surgical debridement. malnutrition. other multiple comorbidities. edema bilateral lower extremities. Bleeding site from within wound controlled with combination of silver nitrate and Surgifoam. Bleeding appears to be controlled. venous insufficiency. immunocompromised status. Plan: Evaluated Cuong's wounds today and debrided his left heel. There has been some improvement in the edges of his lumbar wound and Theraskin is intact. His heel wound is much improved. Wound veil was again placed over the Theraskin and gauze bolstered over the wound veil and secured with the tails of the sutures tied down and will continue to use Aquacel, gauze, and KerraMaxCare with changes once daily for heavy amount of drainage over the gauze. His left heel will change to Guera over the wound with dressings changed daily for moderate to large amount of drainage. Continue increased protein intake. F/U in [address] Wick.
--- NOTE | 2018-09-05 14:25 | PN.PCM_ITS ---
(1) Venous stasis ulcer of heel with fat layer exposed Status: Chronic Current Visit: Yes Qualifiers: Varicose vein presence: with varicose veins Laterality: left Qualified Code(s): I83.024 - Varicose veins of left lower extremity with ulcer of heel and midfoot; L97.422 - Non-pressure chronic ulcer of left heel and midfoot with fat layer exposed Code(s): I83.004 - Varicose veins of unspecified lower extremity with ulcer of heel and midfoot; L97.402 - Non-pressure chronic ulcer of unspecified heel and midfoot with fat layer exposed (2) Nonhealing surgical wound Status: Chronic Current Visit: Yes Qualifiers: Encounter type: subsequent encounter Code(s): T81.89XA - Other complications of procedures, not elsewhere classified, initial encounter Type of Wound Date of Service: 09/05/18 Chief Complaint: Nonhealing surgical wound of lower back, ulcer of left heel History of Wound: Mr. [place] is a 73-yo who has been seen here at the wound center for a nonhealing surgical wound of his lower back s/p surgical debridement for an abscess s/p lumbar spine surgery. His original surgery on his lower back was approximately 2016 and he has had multiple complications since that time. He underwent surgical debridement on 03/04/[address] Davila at [facility] in [place] and was discharged with a wound vac for healing by secondary intention with possible muscle flap closure in the future. He followed up with his surgeon on 04/18/17 for further evaluation and recommendations and they plan to close the wound with a muscle flap but he continues to develop infections. He is also being seen by Infectious Disease as needed. CT 02/2018 did not show any abscess. Progress of Wound: Cuong is here for follow-up of his nonhealing surgical wound of his lower back. His wound is showing improvement with application of Theraskin. Theraskin application #3 is intact to the whole wound bed with incorporation. He continues to have heavy drainage from his wound. He is tolerating Guera to his heel. There is a moderate amount of drainage. He has had 10 applications of Purapply to his lower back wound with mild improvement. He saw a plastic surgeon at [facility] on 04/02/18 who is hopeful to close Cuong's surgical wound with a skin flap. He requested additional records of CT scans as well as information on radiation that was done previously. Cuong saw the surgeon at [facility] again on August 27, 2018 and he does not think a skin flap would be an option but talked about doing a skin graft from his thight to the lower back. He has been having increased pain in his back and left leg presumably from nerve impingement. Denies increased drainage, odor, fever or chills. - Physical Exam Vital Signs Temp Pulse Resp BP 97.7 F L 90 16 123/71 H 09/05/18 12:38 09/05/18 12:38 09/05/18 12:38 09/05/18 12:38 General: Alert, Oriented x3, Cooperative, No apparent distress HEENT: Atraumatic, Normocephalic Oral: Moist Mucosa Extremities: Edema Skin: Ulcer/ Wound Wound Measurements and Assessment WC - Nurse 1 - General Ulcer Measurement Start: 09/05/18 12:38 Freq: Status: Active Protocol: Activity Type Activity Date Activity User E-Sign Co-Sign Detail Recorded Client Recorded Date Recorded By Document 09/05/18 12:38 [facility] [id number] 09/05/18 12:46 [facility] 09/05/18 12:38 Wound Center Nurse 1 [Ulcer Assessment] #10 Left Heel -Combined with other wound No -Current Size (cm) - Length 0.2 -Current Size (cm) - Width 0.2 -Current Size (cm) - Depth 0.1 -Total Square Cm 0.04 -Photo Taken No -Epithelialization Medium 34-66% -Tunneling No -Undermining/Tunneling No -Circular Undermining No -Exudate Amt Small -Exudate Type Serous -Wound Margin Distinct, Outline Attached -Granulation Amt Large (67-100%) -Granulation Quality [place] -Slough/Fibrin No -Necrosis Amt None Present (0 %) -Texture (Uma-wound Skin Appearance) Scarring -Moisture (Uma-wound Skin Appearance Assessed ) Maceration -Color (Uma-wound Skin Appearance) Erythema Palor -Temperature (Uma-wound Skin No Abnormality Appearance) (Pt Warm) -Tenderness on Palpation (Uma-wound No Skin Appearance) -Ulcer Cleansing Rinsed/ Irrigated with Saline -Foul Odor after Cleansing No -Anesthetic Used 5% Lidocaine Gel #9 Lower Lumbar- Midline -Combined with other wound No -Current Size (cm) - Length 0.1 -Current Size (cm) - Width 0.1 -Current Size (cm) - Depth 0.1 -Total Square Cm 0.01 -Photo Taken No WC - Nurse 2 - General Ulcer CM Notes Start: 09/05/18 12:38 Freq: Status: Active Protocol: Activity Type Activity Date Activity User E-Sign Co-Sign Detail Recorded Client Recorded Date Recorded By Document 09/05/18 13:12 DV [id number] 09/05/18 13:17 DV 09/05/18 13:12 Wound Center Nurse 2 [Procedure/Treatment] #10 Left Heel -Time 13:13 -Correct Patient Yes -Correct Side, Site, Position Yes -Correct Procedure Yes -Procedure Performed Yes -Type of Procedure Debridement -Clinical Debridement Subcutaneous -Post Debridement Size (cm) - Length 1.0 -Post Debridement Size (cm) - Width 0.1 -Post Debridement Size (cm) - Depth 0.1 -Total Square Cm 0.10 -Wound/Ulcer Outcome Not Healed -Bleeding Controlled with Pressure -Offloading No -Treatment Response Procedure Tolerated Well [See Physician Procedure note for Specifics] Pain Scale: 0-10 Numeric [Pain] -Is Patient Pain Free? Yes Psych/Mental Status: Normal Affect, Appropriate Debridement Note Post-Debridement Measurements/Treatment ELIZABETH - Nurse 2 - General Ulcer CM Notes Start: 09/05/18 12:38 Freq: Status: Active Protocol: Activity Type Activity Date Activity User E-Sign Co-Sign Detail Recorded Client Recorded Date Recorded By Document 09/05/18 13:12 DV [id number] 09/05/18 13:17 DV 09/05/18 13:12 Wound Center Nurse 2 #10 Left Heel -Time 13:13 -Correct Patient Yes -Correct Side, Site, Position Yes -Correct Procedure Yes -Procedure Performed Yes -Type of Procedure Debridement -Clinical Debridement Subcutaneous -Post Debridement Size (cm) - Length 1.0 -Post Debridement Size (cm) - Width 0.1 -Post Debridement Size (cm) - Depth 0.1 -Total Square Cm 0.10 -Wound/Ulcer Outcome Not Healed -Bleeding Controlled with Pressure -Offloading No -Treatment Response Procedure Tolerated Well Pain Scale: 0-10 Numeric Is Patient Pain Free? Yes Wound debrided: left heel Laterality: Left Type of Debridement: Excisional debridement Anesthesia Used: 4% Lidocaine Solution, 5% Lidocaine Gel Depth: Down to and including healthy tissue Percentage of wound debrided: 100 Instrument Used: 3mm curette Tissue Removed: yellow slough, devitalized tissue Severity: Fat Layer Exposed Amount of bleeding with debridement: Mild Bleeding Controlled with: Compression and gauze Patient tolerated procedure well - Additional Wound Wound debrided: lower lumbar midline Laterality: Not Applicable Operative Diagnosis: no debridement was completed due to allowing Theraskin to incoorporate Assessment/Plan Active Problems (Last Updated 06/16/18 @ 18:13 by Charisse Couch MD) Venous stasis ulcer of heel with fat layer exposed (Chronic) Nonhealing surgical wound (Chronic) Assessment: chronic surgical wound dehiscence lumbar with complex abscess and recent surgical debridement. malnutrition. other multiple comorbidities. edema bilateral lower extremities. Bleeding site from within wound controlled with combination of silver nitrate and Surgifoam. Bleeding appears to be controlled. venous insufficiency. immunocompromised status. Plan: Evaluated Cuong's wounds today and debrided his left heel. There has been some improvement in the edges of his lumbar wound and Theraskin is intact. His heel wound is much improved. Wound veil was again placed over the Theraskin and gauze bolstered over the wound veil and secured with the tails of the sutures tied down and will continue to use Aquacel, gauze, and KerraMaxCare with changes once daily for heavy amount of drainage over the gauze. His left heel will change to Guera over the wound with dressings changed daily for moderate to large amount of drainage. Continue increased protein intake. F/U in [address] Wick.
[2018-09-12 12:31] VITALS: BP 145/74; PULSE 98; RESP 18; TEMP 36.6; BMI 28.8
--- NOTE | 2018-09-12 12:43 | WC ---
RICHARD LEFT INTACT TO LUMBAR WOUND. SUTURES REMAIN INTACT.
--- NOTE | 2018-09-12 14:15 | PCM.WC.PN ---
(1) Venous stasis ulcer of heel with fat layer exposed Status: Chronic Current Visit: Yes Qualifiers: Varicose vein presence: with varicose veins Laterality: left Qualified Code(s): I83.024 - Varicose veins of left lower extremity with ulcer of heel and midfoot; L97.422 - Non-pressure chronic ulcer of left heel and midfoot with fat layer exposed Code(s): I83.004 - Varicose veins of unspecified lower extremity with ulcer of heel and midfoot; L97.402 - Non-pressure chronic ulcer of unspecified heel and midfoot with fat layer exposed (2) Nonhealing surgical wound Status: Chronic Current Visit: Yes Qualifiers: Encounter type: subsequent encounter Code(s): T81.89XA - Other complications of procedures, not elsewhere classified, initial encounter Type of Wound Date of Service: 09/12/18 Chief Complaint: Nonhealing surgical wound of lower back, ulcer of left heel History of Wound: Mr. [place] is a 73-yo who has been seen here at the wound center for a nonhealing surgical wound of his lower back s/p surgical debridement for an abscess s/p lumbar spine surgery. His original surgery on his lower back was approximately 2016 and he has had multiple complications since that time. He underwent surgical debridement on 03/04/[address] Davila at [facility] in [place] and was discharged with a wound vac for healing by secondary intention with possible muscle flap closure in the future. He followed up with his surgeon on 04/18/17 for further evaluation and recommendations and they plan to close the wound with a muscle flap but he continues to develop infections. He is also being seen by Infectious Disease as needed. CT 02/2018 did not show any abscess. Progress of Wound: Cuong is here for follow-up of his nonhealing surgical wound of his lower back. His wound is showing improvement with application of Theraskin. Theraskin application #3 is intact to the whole wound bed with incorporation and there is epitheliazation of the edges of the wound. He continues to have heavy drainage from his wound. He is tolerating Guera to his heel and it is improved in size. There is a moderate amount of drainage. He has had 10 applications of Purapply to his lower back wound with mild improvement. He saw a plastic surgeon at [facility] on 04/02/18 who is hopeful to close Cuong's surgical wound with a skin flap. He requested additional records of CT scans as well as information on radiation that was done previously. Cuong saw the surgeon at [facility] again on August 27, 2018 and he does not think a skin flap would be an option but talked about doing a skin graft from his thight to the lower back. He has been having increased pain in his back and left leg presumably from nerve impingement. Denies increased drainage, odor, fever or chills. - Physical Exam Vital Signs Temp Pulse Resp BP 98 F 98 18 145/74 H 09/12/18 12:31 09/12/18 12:31 09/12/18 12:31 09/12/18 12:31 General: Alert, Oriented x3, Cooperative, No apparent distress HEENT: Atraumatic, Normocephalic Oral: Moist Mucosa Extremities: Edema Skin: Ulcer/ Wound Wound Measurements and Assessment WC - Nurse 1 - General Ulcer Measurement Start: 09/05/18 12:38 Freq: Status: Active Protocol: Activity Type Activity Date Activity User E-Sign Co-Sign Detail Recorded Client Recorded Date Recorded By Document 09/12/18 12:31 [facility] [id number] 09/12/18 12:43 [facility] 09/12/18 12:31 Wound Center Nurse 1 [Ulcer Assessment] #10 Left Heel -Combined with other wound No -Current Size (cm) - Length 0.1 -Current Size (cm) - Width 0.9 -Current Size (cm) - Depth 0.1 -Total Square Cm 0.09 -Photo Taken No -Epithelialization Small 1-33% -Tunneling No -Undermining/Tunneling No -Circular Undermining No -Exudate Amt Medium -Exudate Type Serous -Wound Margin Flat & Intact -Granulation Amt Small (1-33%) -Granulation Quality Red -Slough/Fibrin Yes -Necrosis Amt Medium (34-66%) -Necrotic Tissue Type Adherent Slough -Texture (Uma-wound Skin Appearance) Assessed Scarring -Moisture (Uma-wound Skin Appearance Assessed ) Maceration -Color (Uma-wound Skin Appearance) Assessed Erythema Palor -Temperature (Uma-wound Skin No Abnormality Appearance) (Pt Warm) -Tenderness on Palpation (Uma-wound No Skin Appearance) -Ulcer Cleansing Rinsed/ Irrigated with Saline -Foul Odor after Cleansing No -Anesthetic Used 5% Lidocaine Gel #9 Lower Lumbar- Midline -Combined with other wound No -Current Size (cm) - Length 0.1 -Current Size (cm) - Width 0.1 -Current Size (cm) - Depth 0.1 -Total Square Cm 0.01 -Photo Taken No WC - Nurse 2 - General Ulcer CM Notes Start: 09/05/18 12:38 Freq: Status: Active Protocol: Activity Type Activity Date Activity User E-Sign Co-Sign Detail Recorded Client Recorded Date Recorded By Document 09/12/18 13:32 DV [id number] 09/12/18 13:45 DV 09/12/18 13:32 Wound Center Nurse 2 [Procedure/Treatment] #10 Left Heel -Time 13:32 -Correct Patient Yes -Correct Side, Site, Position Yes -Correct Procedure Yes -Procedure Performed Yes -Type of Procedure Debridement -Clinical Debridement Subcutaneous -Post Debridement Size (cm) - Length 0.1 -Post Debridement Size (cm) - Width 1.2 -Post Debridement Size (cm) - Depth 0.1 -Total Square Cm 0.12 -Wound/Ulcer Outcome Not Healed -Ulcer Cleansing Rinsed/ Irrigated with Saline -Foul Odor after Cleansing No -Bioengineered Tissue No -Bleeding Controlled with Pressure -Offloading No -Treatment Response Procedure Tolerated Well #9 Lower Lumbar- Midline -Time 13:33 -Correct Patient Yes -Correct Side, Site, Position Yes -Correct Procedure Yes -Procedure Performed Yes -Type of Procedure Debridement -Clinical Debridement Subcutaneous -Post Debridement Size (cm) - Length 13.3 -Post Debridement Size (cm) - Width 4.2 -Post Debridement Size (cm) - Depth 0.4 -Total Square Cm 55.86 -Wound/Ulcer Outcome Not Healed -Ulcer Cleansing Rinsed/ Irrigated with Saline -Foul Odor after Cleansing No -Bioengineered Tissue No -Bleeding Controlled with Pressure SURGIFOAM -Offloading No -Treatment Response Procedure Tolerated Well [See Physician Procedure note for Specifics] Pain Scale: 0-10 Numeric [Pain] -Is Patient Pain Free? Yes Psych/Mental Status: Normal Affect, Appropriate Debridement Note Post-Debridement Measurements/Treatment ELIZABETH - Nurse 2 - General Ulcer CM Notes Start: 09/05/18 12:38 Freq: Status: Active Protocol: Activity Type Activity Date Activity User E-Sign Co-Sign Detail Recorded Client Recorded Date Recorded By Document 09/05/18 13:12 DV [id number] 09/05/18 13:17 DV Document 09/12/18 13:32 DV [id number] 09/12/18 13:45 DV 09/05/18 09/12/18 13:12 13:32 Wound Center Nurse 2 #10 Left Heel -Time 13:13 13:32 -Correct Patient Yes Yes -Correct Side, Site, Position Yes Yes -Correct Procedure Yes Yes -Procedure Performed Yes Yes -Type of Procedure Debridement Debridement -Clinical Debridement Subcutaneous Subcutaneous -Post Debridement Size (cm) - Length 1.0 0.1 -Post Debridement Size (cm) - Width 0.1 1.2 -Post Debridement Size (cm) - Depth 0.1 0.1 -Total Square Cm 0.10 0.12 -Wound/Ulcer Outcome Not Healed Not Healed -Ulcer Cleansing Rinsed/ Irrigated with Saline -Foul Odor after Cleansing No -Bioengineered Tissue No -Bleeding Controlled with Pressure Pressure -Offloading No No -Treatment Response Procedure Procedure Tolerated Well Tolerated Well #9 Lower Lumbar- Midline -Time 13:33 -Correct Patient Yes -Correct Side, Site, Position Yes -Correct Procedure Yes -Procedure Performed Yes -Type of Procedure Debridement -Clinical Debridement Subcutaneous -Post Debridement Size (cm) - Length 13.3 -Post Debridement Size (cm) - Width 4.2 -Post Debridement Size (cm) - Depth 0.4 -Total Square Cm 55.86 -Wound/Ulcer Outcome Not Healed -Ulcer Cleansing Rinsed/ Irrigated with Saline -Foul Odor after Cleansing No -Bioengineered Tissue No -Bleeding Controlled with Pressure SURGIFOAM -Offloading No -Treatment Response Procedure Tolerated Well Pain Scale: 0-10 Numeric Is Patient Pain Free? Yes Yes Wound debrided: left heel Laterality: Left Type of Debridement: Excisional debridement Anesthesia Used: 4% Lidocaine Solution Depth: Down to and including healthy tissue, in the subcutaneous layer Percentage of wound debrided: 100 Instrument Used: 5mm curette Tissue Removed: yellow slough, devitalized tissue Severity: Fat Layer Exposed Amount of bleeding with debridement: Mild Bleeding Controlled with: Compression and gauze Patient tolerated procedure well - Additional Wound Wound debrided: lower lumbar midline Laterality: Not Applicable Type of Debridement: Excisional debridement Anesthesia Used: 4% Lidocaine Solution Depth: Down to and including healthy tissue, in the subcutaneous layer Percentage of wound debrided: 100 Instrument Used: 5mm curette Tissue Removed: yellow slough, devitalized tissue Severity: Fat Layer Exposed Amount of bleeding with debridement: Mild Bleeding Controlled with: Compression and gauze Patient tolerated procedure: Patient tolerated procedure well Assessment/Plan Active Problems (Last Updated 06/16/18 @ 18:13 by Charisse Couch MD) Venous stasis ulcer of heel with fat layer exposed (Chronic) Nonhealing surgical wound (Chronic) Assessment: chronic surgical wound dehiscence lumbar with complex abscess and recent surgical debridement. malnutrition. other multiple comorbidities. edema bilateral lower extremities. Bleeding site from within wound controlled with combination of silver nitrate and Surgifoam. Bleeding appears to be controlled. venous insufficiency. immunocompromised status. Plan: Evaluated Cuong's wounds today and debrided his left heel. There has been some improvement in the edges of his lumbar wound and Theraskin was well tolerated. There is some erythema surrounding the wound and an odor. A wound culture was taken and will treat if needed based on wound culture results. His heel ulcer is improved. Will continue to use Aquacel, ABD, and KerraMaxCare with changes once daily for heavy amount of drainage of his lumbar wound. His left heel will continue to use Guera over the wound with dressings changed daily for moderate to large amount of drainage. Continue increased protein intake. F/U in [address] Wick.
--- NOTE | 2018-09-12 14:20 | PN.PCM_ITS ---
(1) Venous stasis ulcer of heel with fat layer exposed Status: Chronic Current Visit: Yes Qualifiers: Varicose vein presence: with varicose veins Laterality: left Qualified Code(s): I83.024 - Varicose veins of left lower extremity with ulcer of heel and midfoot; L97.422 - Non-pressure chronic ulcer of left heel and midfoot with fat layer exposed Code(s): I83.004 - Varicose veins of unspecified lower extremity with ulcer of heel and midfoot; L97.402 - Non-pressure chronic ulcer of unspecified heel and midfoot with fat layer exposed (2) Nonhealing surgical wound Status: Chronic Current Visit: Yes Qualifiers: Encounter type: subsequent encounter Code(s): T81.89XA - Other complications of procedures, not elsewhere classified, initial encounter Type of Wound Date of Service: 09/12/18 Chief Complaint: Nonhealing surgical wound of lower back, ulcer of left heel History of Wound: Mr. Marshall is a 73-yo who has been seen here at the wound center for a nonhealing surgical wound of his lower back s/p surgical debridement for an abscess s/p lumbar spine surgery. His original surgery on his lower back was approximately 2016 and he has had multiple complications since that time. He underwent surgical debridement on 03/04/[address] Davila at [facility] in [place] and was discharged with a wound vac for healing by secondary intention with possible muscle flap closure in the future. He followed up with his surgeon on 04/18/17 for further evaluation and recommendations and they plan to close the wound with a muscle flap but he continues to develop infections. He is also being seen by Infectious Disease as needed. CT 02/2018 did not show any abscess. Progress of Wound: Cuong is here for follow-up of his nonhealing surgical wound of his lower back. His wound is showing improvement with application of Theraskin. Theraskin application #3 is intact to the whole wound bed with incorporation and there is epitheliazation of the edges of the wound. He continues to have heavy drainage from his wound. He is tolerating Guera to his heel and it is improved in size. There is a moderate amount of drainage. He has had 10 applications of Purapply to his lower back wound with mild improvement. He saw a plastic surgeon at [facility] on 04/02/18 who is hopeful to close Cuong's surgical wound with a skin flap. He requested additional records of CT scans as well as information on radiation that was done previously. Cuong saw the surgeon at [facility] again on August 27, 2018 and he does not think a skin flap would be an option but talked about doing a skin graft from his thight to the lower back. He has been having increased pain in his back and left leg presumably from nerve impingement. Denies increased drainage, odor, fever or chills. - Physical Exam Vital Signs Temp Pulse Resp BP 98 F 98 18 145/74 H 09/12/18 12:31 09/12/18 12:31 09/12/18 12:31 09/12/18 12:31 General: Alert, Oriented x3, Cooperative, No apparent distress HEENT: Atraumatic, Normocephalic Oral: Moist Mucosa Extremities: Edema Skin: Ulcer/ Wound Wound Measurements and Assessment WC - Nurse 1 - General Ulcer Measurement Start: 09/05/18 12:38 Freq: Status: Active Protocol: Activity Type Activity Date Activity User E-Sign Co-Sign Detail Recorded Client Recorded Date Recorded By Document 09/12/18 12:31 [facility] [id number] 09/12/18 12:43 [facility] 09/12/18 12:31 Wound Center Nurse 1 [Ulcer Assessment] #10 Left Heel -Combined with other wound No -Current Size (cm) - Length 0.1 -Current Size (cm) - Width 0.9 -Current Size (cm) - Depth 0.1 -Total Square Cm 0.09 -Photo Taken No -Epithelialization Small 1-33% -Tunneling No -Undermining/Tunneling No -Circular Undermining No -Exudate Amt Medium -Exudate Type Serous -Wound Margin Flat & Intact -Granulation Amt Small (1-33%) -Granulation Quality Red -Slough/Fibrin Yes -Necrosis Amt Medium (34-66%) -Necrotic Tissue Type Adherent Slough -Texture (Uma-wound Skin Appearance) Assessed Scarring -Moisture (Uma-wound Skin Appearance Assessed ) Maceration -Color (Uma-wound Skin Appearance) Assessed Erythema Palor -Temperature (Uma-wound Skin No Abnormality Appearance) (Pt Warm) -Tenderness on Palpation (Uma-wound No Skin Appearance) -Ulcer Cleansing Rinsed/ Irrigated with Saline -Foul Odor after Cleansing No -Anesthetic Used 5% Lidocaine Gel #9 Lower Lumbar- Midline -Combined with other wound No -Current Size (cm) - Length 0.1 -Current Size (cm) - Width 0.1 -Current Size (cm) - Depth 0.1 -Total Square Cm 0.01 -Photo Taken No WC - Nurse 2 - General Ulcer CM Notes Start: 09/05/18 12:38 Freq: Status: Active Protocol: Activity Type Activity Date Activity User E-Sign Co-Sign Detail Recorded Client Recorded Date Recorded By Document 09/12/18 13:32 DV [id number] 09/12/18 13:45 DV 09/12/18 13:32 Wound Center Nurse 2 [Procedure/Treatment] #10 Left Heel -Time 13:32 -Correct Patient Yes -Correct Side, Site, Position Yes -Correct Procedure Yes -Procedure Performed Yes -Type of Procedure Debridement -Clinical Debridement Subcutaneous -Post Debridement Size (cm) - Length 0.1 -Post Debridement Size (cm) - Width 1.2 -Post Debridement Size (cm) - Depth 0.1 -Total Square Cm 0.12 -Wound/Ulcer Outcome Not Healed -Ulcer Cleansing Rinsed/ Irrigated with Saline -Foul Odor after Cleansing No -Bioengineered Tissue No -Bleeding Controlled with Pressure -Offloading No -Treatment Response Procedure Tolerated Well #9 Lower Lumbar- Midline -Time 13:33 -Correct Patient Yes -Correct Side, Site, Position Yes -Correct Procedure Yes -Procedure Performed Yes -Type of Procedure Debridement -Clinical Debridement Subcutaneous -Post Debridement Size (cm) - Length 13.3 -Post Debridement Size (cm) - Width 4.2 -Post Debridement Size (cm) - Depth 0.4 -Total Square Cm 55.86 -Wound/Ulcer Outcome Not Healed -Ulcer Cleansing Rinsed/ Irrigated with Saline -Foul Odor after Cleansing No -Bioengineered Tissue No -Bleeding Controlled with Pressure SURGIFOAM -Offloading No -Treatment Response Procedure Tolerated Well [See Physician Procedure note for Specifics] Pain Scale: 0-10 Numeric [Pain] -Is Patient Pain Free? Yes Psych/Mental Status: Normal Affect, Appropriate Debridement Note Post-Debridement Measurements/Treatment ELIZABETH - Nurse 2 - General Ulcer CM Notes Start: 09/05/18 12:38 Freq: Status: Active Protocol: Activity Type Activity Date Activity User E-Sign Co-Sign Detail Recorded Client Recorded Date Recorded By Document 09/05/18 13:12 DV [id number] 09/05/18 13:17 DV Document 09/12/18 13:32 DV [id number] 09/12/18 13:45 DV 09/05/18 09/12/18 13:12 13:32 Wound Center Nurse 2 #10 Left Heel -Time 13:13 13:32 -Correct Patient Yes Yes -Correct Side, Site, Position Yes Yes -Correct Procedure Yes Yes -Procedure Performed Yes Yes -Type of Procedure Debridement Debridement -Clinical Debridement Subcutaneous Subcutaneous -Post Debridement Size (cm) - Length 1.0 0.1 -Post Debridement Size (cm) - Width 0.1 1.2 -Post Debridement Size (cm) - Depth 0.1 0.1 -Total Square Cm 0.10 0.12 -Wound/Ulcer Outcome Not Healed Not Healed -Ulcer Cleansing Rinsed/ Irrigated with Saline -Foul Odor after Cleansing No -Bioengineered Tissue No -Bleeding Controlled with Pressure Pressure -Offloading No No -Treatment Response Procedure Procedure Tolerated Well Tolerated Well #9 Lower Lumbar- Midline -Time 13:33 -Correct Patient Yes -Correct Side, Site, Position Yes -Correct Procedure Yes -Procedure Performed Yes -Type of Procedure Debridement -Clinical Debridement Subcutaneous -Post Debridement Size (cm) - Length 13.3 -Post Debridement Size (cm) - Width 4.2 -Post Debridement Size (cm) - Depth 0.4 -Total Square Cm 55.86 -Wound/Ulcer Outcome Not Healed -Ulcer Cleansing Rinsed/ Irrigated with Saline -Foul Odor after Cleansing No -Bioengineered Tissue No -Bleeding Controlled with Pressure SURGIFOAM -Offloading No -Treatment Response Procedure Tolerated Well Pain Scale: 0-10 Numeric Is Patient Pain Free? Yes Yes Wound debrided: left heel Laterality: Left Type of Debridement: Excisional debridement Anesthesia Used: 4% Lidocaine Solution Depth: Down to and including healthy tissue, in the subcutaneous layer Percentage of wound debrided: 100 Instrument Used: 5mm curette Tissue Removed: yellow slough, devitalized tissue Severity: Fat Layer Exposed Amount of bleeding with debridement: Mild Bleeding Controlled with: Compression and gauze Patient tolerated procedure well - Additional Wound Wound debrided: lower lumbar midline Laterality: Not Applicable Type of Debridement: Excisional debridement Anesthesia Used: 4% Lidocaine Solution Depth: Down to and including healthy tissue, in the subcutaneous layer Percentage of wound debrided: 100 Instrument Used: 5mm curette Tissue Removed: yellow slough, devitalized tissue Severity: Fat Layer Exposed Amount of bleeding with debridement: Mild Bleeding Controlled with: Compression and gauze Patient tolerated procedure: Patient tolerated procedure well Assessment/Plan Active Problems (Last Updated 06/16/18 @ 18:13 by Charisse Couch MD) Venous stasis ulcer of heel with fat layer exposed (Chronic) Nonhealing surgical wound (Chronic) Assessment: chronic surgical wound dehiscence lumbar with complex abscess and recent surgical debridement. malnutrition. other multiple comorbidities. edema bilateral lower extremities. Bleeding site from within wound controlled with combination of silver nitrate and Surgifoam. Bleeding appears to be controlled. venous insufficiency. immunocompromised status. Plan: Evaluated Cuong's wounds today and debrided his left heel. There has been some improvement in the edges of his lumbar wound and Theraskin was well tolerated. There is some erythema surrounding the wound and an odor. A wound culture was taken and will treat if needed based on wound culture results. His heel ulcer is improved. Will continue to use Aquacel, ABD, and KerraMaxCare with changes once daily for heavy amount of drainage of his lumbar wound. His left heel will continue to use Guera over the wound with dressings changed daily for moderate to large amount of drainage. Continue increased protein intake. F/U in [address] Wick.
[2018-09-19 12:40] VITALS: BP 122/66; PULSE 92; RESP 18; TEMP 36.7; BMI 28.8
--- NOTE | 2018-09-19 13:38 | PN.PCM_ITS ---
(1) Venous stasis ulcer of heel with fat layer exposed Status: Chronic Current Visit: Yes Qualifiers: Varicose vein presence: with varicose veins Laterality: left Qualified Code(s): I83.024 - Varicose veins of left lower extremity with ulcer of heel and midfoot; L97.422 - Non-pressure chronic ulcer of left heel and midfoot with fat layer exposed Code(s): I83.004 - Varicose veins of unspecified lower extremity with ulcer of heel and midfoot; L97.402 - Non-pressure chronic ulcer of unspecified heel and midfoot with fat layer exposed (2) Nonhealing surgical wound Status: Chronic Current Visit: Yes Qualifiers: Encounter type: subsequent encounter Code(s): T81.89XA - Other complications of procedures, not elsewhere classified, initial encounter Type of Wound Date of Service: 09/19/18 Chief Complaint: Nonhealing surgical wound of lower back, ulcer of left heel History of Wound: Mr. Marshall is a 73-yo who has been seen here at the wound center for a nonhealing surgical wound of his lower back s/p surgical debridement for an abscess s/p lumbar spine surgery. His original surgery on his lower back was approximately 2016 and he has had multiple complications since that time. He underwent surgical debridement on 03/04/[address] Davila at [facility] in [place] and was discharged with a wound vac for healing by secondary intention with possible muscle flap closure in the future. He followed up with his surgeon on 04/18/17 for further evaluation and recommendations and they plan to close the wound with a muscle flap but he continues to develop infections. He is also being seen by Infectious Disease as needed. CT 02/2018 did not show any abscess. Progress of Wound: Cuong is here for follow-up of his nonhealing surgical wound of his lower back. His wound is showing improvement with application of Theraskin. He had positive wound cultures last week and was started on ciprofloxacin and Flagyl. He is tolerating antibiotic treatment. He continues to have heavy drainage from his wound. He is tolerating Guera to his heel and it is improved in size. There is a moderate amount of drainage. He has had 10 applications of Purapply to his lower back wound with mild improvement. He saw a plastic surgeon at [facility] on 04/02/18 who is hopeful to close Cuong's surgical wound with a skin flap. He requested additional records of CT scans as well as information on radiation that was done previously. Cuong saw the surgeon at [facility] again on August 27, 2018 and he does not think a skin flap would be an option but talked about doing a skin graft from his thight to the lower back. He has been having increased pain in his back and left leg presumably from nerve impingement. Denies increased drainage, odor, fever or chills. - Physical Exam Vital Signs Temp Pulse Resp BP 98.0 F 92 18 122/66 H 09/19/18 12:40 09/19/18 12:40 09/19/18 12:40 09/19/18 12:40 General: Alert, Oriented x3, Cooperative, No apparent distress HEENT: Atraumatic, Normocephalic Oral: Moist Mucosa Extremities: Edema Skin: Ulcer/ Wound Wound Measurements and Assessment WC - Nurse 1 - General Ulcer Measurement Start: 09/05/18 12:38 Freq: Status: Active Protocol: Activity Type Activity Date Activity User E-Sign Co-Sign Detail Recorded Client Recorded Date Recorded By Document 09/19/18 12:40 [id number] 09/19/18 12:46 09/19/18 12:40 Wound Center Nurse 1 [Ulcer Assessment] #10 Left Heel -Combined with other wound No -Current Size (cm) - Length 1.1 -Current Size (cm) - Width 0.2 -Current Size (cm) - Depth 0.1 -Total Square Cm 0.22 -Photo Taken No -Epithelialization Small 1-33% -Tunneling No -Undermining/Tunneling No -Circular Undermining No -Exudate Amt None Present -Wound Margin Distinct, Outline Attached -Granulation Amt Medium (34-66%) -Granulation Quality Pale [place] -Slough/Fibrin Yes -Necrosis Amt Medium (34-66%) -Necrotic Tissue Type Adherent Slough -Structure Exposed None/Limited to Skin Breakdown -Texture (Uma-wound Skin Appearance) Callus -Moisture (Uma-wound Skin Appearance Assessed ) Maceration -Color (Uma-wound Skin Appearance) No Abnormality Assessed -Temperature (Uma-wound Skin No Abnormality Appearance) (Pt Warm) -Tenderness on Palpation (Uma-wound Yes Skin Appearance) -Ulcer Cleansing Rinsed/ Irrigated with Saline -Foul Odor after Cleansing No -Anesthetic Used 4% Lidocaine Solution #9 Lower Lumbar- Midline -Combined with other wound No -Current Size (cm) - Length 14.9 -Current Size (cm) - Width 4.7 -Current Size (cm) - Depth 0.6 -Total Square Cm 70.03 -Photo Taken No -Epithelialization None Present -Tunneling No -Undermining/Tunneling No -Circular Undermining No -Wound Margin Thickened & Rolled Under -Slough/Fibrin Yes -Necrosis Amt Medium (34-66%) -Necrotic Tissue Type Adherent Slough -Texture (Uma-wound Skin Appearance) Scarring -Moisture (Uma-wound Skin Appearance No Abnormality ) Assessed -Color (Uma-wound Skin Appearance) Assessed Erythema -Temperature (Uma-wound Skin No Abnormality Appearance) (Pt Warm) -Tenderness on Palpation (Uma-wound Yes Skin Appearance) -Ulcer Cleansing Rinsed/ Irrigated with Saline -Foul Odor after Cleansing No -Anesthetic Used 4% Lidocaine Solution [Edema Assessment] -Lower Limb Edema Present NA WC - Nurse 2 - General Ulcer CM Notes Start: 09/05/18 12:38 Freq: Status: Active Protocol: Activity Type Activity Date Activity User E-Sign Co-Sign Detail Recorded Client Recorded Date Recorded By Document 09/19/18 13:00 DV [id number] 09/19/18 13:13 DV 09/19/18 13:00 Wound Center Nurse 2 [Procedure/Treatment] #10 Left Heel -Time 13:01 -Correct Patient Yes -Correct Side, Site, Position Yes -Correct Procedure Yes -Procedure Performed Yes -Type of Procedure Debridement -Clinical Debridement Subcutaneous -Post Debridement Size (cm) - Length 0.2 -Post Debridement Size (cm) - Width 1.0 -Post Debridement Size (cm) - Depth 0.1 -Total Square Cm 0.20 -Wound/Ulcer Outcome Not Healed -Ulcer Cleansing Rinsed/ Irrigated with Saline -Foul Odor after Cleansing No -Bioengineered Tissue No -Bleeding Controlled with Pressure -Offloading No -Treatment Response Procedure Tolerated Well #9 Lower Lumbar- Midline -Time 13:01 -Correct Patient Yes -Correct Side, Site, Position Yes -Correct Procedure Yes -Procedure Performed Yes -Type of Procedure Debridement -Clinical Debridement Subcutaneous -Post Debridement Size (cm) - Length 13.3 -Post Debridement Size (cm) - Width 4.0 -Post Debridement Size (cm) - Depth 0.4 -Total Square Cm 53.20 -Wound/Ulcer Outcome Not Healed -Ulcer Cleansing Rinsed/ Irrigated with Saline -Foul Odor after Cleansing No -Bioengineered Tissue No -Bleeding Controlled with Pressure -Offloading No -Treatment Response Procedure Tolerated Well [See Physician Procedure note for Specifics] Pain Scale: 0-10 Numeric [Pain] -Is Patient Pain Free? Yes Psych/Mental Status: Normal Affect, Appropriate Debridement Note Post-Debridement Measurements/Treatment WC - Nurse 2 - General Ulcer CM Notes Start: 09/05/18 12:38 Freq: Status: Active Protocol: Activity Type Activity Date Activity User E-Sign Co-Sign Detail Recorded Client Recorded Date Recorded By Document 09/05/18 13:12 DV [id number] 09/05/18 13:17 DV Document 09/12/18 13:32 DV [id number] 09/12/18 13:45 DV Document 09/19/18 13:00 DV [id number] 09/19/18 13:13 DV 09/05/18 09/12/18 09/19/18 13:12 13:32 13:00 Wound Center Nurse 2 #10 Left Heel -Time 13:13 13:32 13:01 -Correct Patient Yes Yes Yes -Correct Side, Site, Position Yes Yes Yes -Correct Procedure Yes Yes Yes -Procedure Performed Yes Yes Yes -Type of Procedure Debridement Debridement Debridement -Clinical Debridement Subcutaneous Subcutaneous Subcutaneous -Post Debridement Size (cm) - Length 1.0 0.1 0.2 -Post Debridement Size (cm) - Width 0.1 1.2 1.0 -Post Debridement Size (cm) - Depth 0.1 0.1 0.1 -Total Square Cm 0.10 0.12 0.20 -Wound/Ulcer Outcome Not Healed Not Healed Not Healed -Ulcer Cleansing Rinsed/ Rinsed/ Irrigated with Irrigated with Saline Saline -Foul Odor after Cleansing No No -Bioengineered Tissue No No -Bleeding Controlled with Pressure Pressure Pressure -Offloading No No No -Treatment Response Procedure Procedure Procedure Tolerated Well Tolerated Well Tolerated Well #9 Lower Lumbar- Midline -Time 13:33 13:01 -Correct Patient Yes Yes -Correct Side, Site, Position Yes Yes -Correct Procedure Yes Yes -Procedure Performed Yes Yes -Type of Procedure Debridement Debridement -Clinical Debridement Subcutaneous Subcutaneous -Post Debridement Size (cm) - Length 13.3 13.3 -Post Debridement Size (cm) - Width 4.2 4.0 -Post Debridement Size (cm) - Depth 0.4 0.4 -Total Square Cm 55.86 53.20 -Wound/Ulcer Outcome Not Healed Not Healed -Ulcer Cleansing Rinsed/ Rinsed/ Irrigated with Irrigated with Saline Saline -Foul Odor after Cleansing No No -Bioengineered Tissue No No -Bleeding Controlled with Pressure Pressure SURGIFOAM -Offloading No No -Treatment Response Procedure Procedure Tolerated Well Tolerated Well Pain Scale: 0-10 Numeric Is Patient Pain Free? Yes Yes Yes Wound debrided: left heel Laterality: Left Type of Debridement: Excisional debridement Anesthesia Used: 4% Lidocaine Solution Depth: Down to and including healthy tissue, in the subcutaneous layer Percentage of wound debrided: 100 Instrument Used: 5mm curette Tissue Removed: yellow slough, devitalized tissue Severity: Fat Layer Exposed Amount of bleeding with debridement: Mild Bleeding Controlled with: Compression and gauze Patient tolerated procedure well - Additional Wound Wound debrided: lower lumbar midline Laterality: Not Applicable Type of Debridement: Excisional debridement Anesthesia Used: 4% Lidocaine Solution, 5% Lidocaine Gel Depth: Down to and including healthy tissue, in the subcutaneous layer Percentage of wound debrided: 100 Instrument Used: 7mm curette Tissue Removed: yellow slough, devitalized tissue Severity: Fat Layer Exposed Amount of bleeding with debridement: Moderate Bleeding Controlled with: Compression and gauze, Gel Foam Patient tolerated procedure: Patient tolerated procedure well Assessment/Plan Active Problems (Last Updated 06/16/18 @ 18:13 by Charisse Couch MD) Venous stasis ulcer of heel with fat layer exposed (Chronic) Nonhealing surgical wound (Chronic) Assessment: chronic surgical wound dehiscence lumbar with complex abscess and recent surgical debridement. malnutrition. other multiple comorbidities. edema bilateral lower extremities. Bleeding site from within wound controlled with combination of silver nitrate and Surgifoam. Bleeding appears to be controlled. venous insufficiency. immunocompromised status. Plan: Evaluated Cuong's wounds today and debrided his left heel ulcer and lumbar wound. There has been some improvement in the edges of his lumbar wound. There is no further odor from his wound. Erythema and tenderness is still present. His heel ulcer is improved. Will continue to use Aquacel, ABD, and KerraMaxCare with changes once daily for heavy amount of drainage of his lumbar wound. His left heel will continue to use Guera over the wound with dressings changed daily for moderate to large amount of drainage. Continue increased protein intake. F/U in [address] Wick and plan for application of Theraskin.
[2018-09-26 12:35] VITALS: BP 130/71; PULSE 84; RESP 18; TEMP 36; BMI 28.8
--- NOTE | 2018-09-26 19:22 | PCM.WC.PN ---
(1) Venous stasis ulcer of heel with fat layer exposed Status: Chronic Current Visit: Yes Qualifiers: Varicose vein presence: with varicose veins Laterality: left Qualified Code(s): I83.024 - Varicose veins of left lower extremity with ulcer of heel and midfoot; L97.422 - Non-pressure chronic ulcer of left heel and midfoot with fat layer exposed Code(s): I83.004 - Varicose veins of unspecified lower extremity with ulcer of heel and midfoot; L97.402 - Non-pressure chronic ulcer of unspecified heel and midfoot with fat layer exposed (2) Nonhealing surgical wound Status: Chronic Current Visit: Yes Qualifiers: Encounter type: subsequent encounter Code(s): T81.89XA - Other complications of procedures, not elsewhere classified, initial encounter Type of Wound Date of Service: 09/26/18 Chief Complaint: Nonhealing surgical wound of lower back, ulcer of left heel History of Wound: Mr. Marshall is a 73-yo who has been seen here at the wound center for a nonhealing surgical wound of his lower back s/p surgical debridement for an abscess s/p lumbar spine surgery. His original surgery on his lower back was approximately 2016 and he has had multiple complications since that time. He underwent surgical debridement on 03/04/[address] Davila at [facility] in [place] and was discharged with a wound vac for healing by secondary intention with possible muscle flap closure in the future. He followed up with his surgeon on 04/18/17 for further evaluation and recommendations and they plan to close the wound with a muscle flap but he continues to develop infections. He is also being seen by Infectious Disease as needed. CT 02/2018 did not show any abscess. Progress of Wound: Cuong is here for follow-up of his nonhealing surgical wound of his lower back. His wound is showing improvement with applications of Theraskin. He tolerated antibiotic treatment. He continues to have heavy drainage from his wound. He is tolerating Guera to his heel and it is improved in size. There is a moderate amount of drainage. He has had 10 applications of Purapply to his lower back wound with mild improvement. He saw a plastic surgeon at [facility] on 04/02/18 who is hopeful to close Cuong's surgical wound with a skin flap. He requested additional records of CT scans as well as information on radiation that was done previously. Cuong saw the surgeon at [facility] again on August 27, 2018 and he does not think a skin flap would be an option but talked about doing a skin graft from his thigh to the lower back. He has been having increased pain in his back and left leg presumably from nerve impingement. Denies increased drainage, odor, fever or chills. - Physical Exam Vital Signs Temp Pulse Resp BP 96.8 F L 84 18 130/71 H 09/26/18 12:35 09/26/18 12:35 09/26/18 12:35 09/26/18 12:35 General: Alert, Oriented x3, Cooperative, No apparent distress HEENT: Atraumatic, Normocephalic Oral: Moist Mucosa Neck: Supple Extremities: Edema Skin: Ulcer/ Wound Wound Measurements and Assessment WC - Nurse 1 - General Ulcer Measurement Start: 09/05/18 12:38 Freq: Status: Active Protocol: Activity Type Activity Date Activity User E-Sign Co-Sign Detail Recorded Client Recorded Date Recorded By Document 09/26/18 12:35 [facility] [id number] 09/26/18 12:48 [facility] 09/26/18 12:35 Wound Center Nurse 1 [Ulcer Assessment] #10 Left Heel -Combined with other wound No -Current Size (cm) - Length 0.1 -Current Size (cm) - Width 1 -Current Size (cm) - Depth 0.2 -Total Square Cm 0.1 -Photo Taken No -Epithelialization Medium 34-66% -Tunneling No -Undermining/Tunneling No -Circular Undermining No -Exudate Amt None Present -Wound Margin Flat & Intact -Granulation Amt Large (67-100%) -Granulation Quality Pale Normal -Slough/Fibrin No -Necrosis Amt None Present (0 %) -Texture (Uma-wound Skin Appearance) Assessed Scarring -Moisture (Uma-wound Skin Appearance Assessed ) -Color (Uma-wound Skin Appearance) Assessed Erythema -Temperature (Uma-wound Skin No Abnormality Appearance) (Pt Warm) -Tenderness on Palpation (Uma-wound No Skin Appearance) -Ulcer Cleansing Rinsed/ Irrigated with Saline -Foul Odor after Cleansing No -Anesthetic Used 4% Lidocaine Solution #9 Lower Lumbar- Midline -Combined with other wound No -Current Size (cm) - Length 14 -Current Size (cm) - Width 4.2 -Current Size (cm) - Depth 0.1 -Total Square Cm 58.8 -Photo Taken No -Epithelialization None Present -Tunneling No -Undermining/Tunneling No -Circular Undermining No -Exudate Amt Large -Exudate Type Yellow/Green -Wound Margin Thickened & Rolled Under -Granulation Amt Medium (34-66%) -Granulation Quality Pale Normal -Slough/Fibrin Yes -Necrosis Amt Medium (34-66%) -Necrotic Tissue Type Adherent Slough -Texture (Uma-wound Skin Appearance) Assessed Scarring -Moisture (Uma-wound Skin Appearance Assessed ) -Color (Uma-wound Skin Appearance) Assessed -Temperature (Uma-wound Skin No Abnormality Appearance) (Pt Warm) -Tenderness on Palpation (Uma-wound No Skin Appearance) -Ulcer Cleansing Wound Cleanser -Foul Odor after Cleansing No -Anesthetic Used 4% Lidocaine Solution WC - Nurse 2 - General Ulcer CM Notes Start: 09/05/18 12:38 Freq: Status: Active Protocol: Activity Type Activity Date Activity User E-Sign Co-Sign Detail Recorded Client Recorded Date Recorded By Document 09/26/18 13:04 DV [id number] 09/26/18 13:22 DV 09/26/18 13:04 Wound Center Nurse 2 [Procedure/Treatment] #10 Left Heel -Time 13:11 -Correct Patient Yes -Correct Side, Site, Position Yes -Correct Procedure Yes -Procedure Performed Yes -Type of Procedure Debridement -Clinical Debridement Subcutaneous -Post Debridement Size (cm) - Length 0.1 -Post Debridement Size (cm) - Width 0.8 -Post Debridement Size (cm) - Depth 0.1 -Total Square Cm 0.08 -Wound/Ulcer Outcome Not Healed -Ulcer Cleansing Rinsed/ Irrigated with Saline -Foul Odor after Cleansing No -Bioengineered Tissue No -Bleeding Controlled with Pressure -Offloading No -Treatment Response Procedure Tolerated Well #9 Lower Lumbar- Midline -Time 13:15 -Correct Patient Yes -Correct Side, Site, Position Yes -Correct Procedure Yes -Procedure Performed Yes -Type of Procedure Debridement -Clinical Debridement Subcutaneous -Post Debridement Size (cm) - Length 13.2 -Post Debridement Size (cm) - Width 4.2 -Post Debridement Size (cm) - Depth 0.4 -Total Square Cm 55.44 -Wound/Ulcer Outcome Not Healed -Ulcer Cleansing Rinsed/ Irrigated with Saline -Foul Odor after Cleansing No -Bioengineered Tissue No -Bleeding Controlled with Pressure -Offloading No -Treatment Response Procedure Tolerated Well [See Physician Procedure note for Specifics] Pain Scale: 0-10 Numeric [Pain] -Is Patient Pain Free? Yes Psych/Mental Status: Normal Affect, Appropriate Debridement Note Post-Debridement Measurements/Treatment WC - Nurse 2 - General Ulcer CM Notes Start: 09/05/18 12:38 Freq: Status: Active Protocol: Activity Type Activity Date Activity User E-Sign Co-Sign Detail Recorded Client Recorded Date Recorded By Document 09/05/18 13:12 DV [id number] 09/05/18 13:17 DV Document 09/12/18 13:32 DV [id number] 09/12/18 13:45 DV Document 09/19/18 13:00 DV [id number] 09/19/18 13:13 DV Document 09/26/18 13:04 DV [id number] 09/26/18 13:22 DV 09/05/18 09/12/18 09/19/18 13:12 13:32 13:00 Wound Center Nurse 2 #10 Left Heel -Time 13:13 13:32 13:01 -Correct Patient Yes Yes Yes -Correct Side, Site, Position Yes Yes Yes -Correct Procedure Yes Yes Yes -Procedure Performed Yes Yes Yes -Type of Procedure Debridement Debridement Debridement -Clinical Debridement Subcutaneous Subcutaneous Subcutaneous -Post Debridement Size (cm) - Length 1.0 0.1 0.2 -Post Debridement Size (cm) - Width 0.1 1.2 1.0 -Post Debridement Size (cm) - Depth 0.1 0.1 0.1 -Total Square Cm 0.10 0.12 0.20 -Wound/Ulcer Outcome Not Healed Not Healed Not Healed -Ulcer Cleansing Rinsed/ Rinsed/ Irrigated with Irrigated with Saline Saline -Foul Odor after Cleansing No No -Bioengineered Tissue No No -Bleeding Controlled with Pressure Pressure Pressure -Offloading No No No -Treatment Response Procedure Procedure Procedure Tolerated Well Tolerated Well Tolerated Well #9 Lower Lumbar- Midline -Time 13:33 13:01 -Correct Patient Yes Yes -Correct Side, Site, Position Yes Yes -Correct Procedure Yes Yes -Procedure Performed Yes Yes -Type of Procedure Debridement Debridement -Clinical Debridement Subcutaneous Subcutaneous -Post Debridement Size (cm) - Length 13.3 13.3 -Post Debridement Size (cm) - Width 4.2 4.0 -Post Debridement Size (cm) - Depth 0.4 0.4 -Total Square Cm 55.86 53.20 -Wound/Ulcer Outcome Not Healed Not Healed -Ulcer Cleansing Rinsed/ Rinsed/ Irrigated with Irrigated with Saline Saline -Foul Odor after Cleansing No No -Bioengineered Tissue No No -Bleeding Controlled with Pressure Pressure SURGIFOAM -Offloading No No -Treatment Response Procedure Procedure Tolerated Well Tolerated Well Pain Scale: 0-10 Numeric Is Patient Pain Free? Yes Yes Yes 09/26/18 13:04 Wound Center Nurse 2 #10 Left Heel -Time 13:11 -Correct Patient Yes -Correct Side, Site, Position Yes -Correct Procedure Yes -Procedure Performed Yes -Type of Procedure Debridement -Clinical Debridement Subcutaneous -Post Debridement Size (cm) - Length 0.1 -Post Debridement Size (cm) - Width 0.8 -Post Debridement Size (cm) - Depth 0.1 -Total Square Cm 0.08 -Wound/Ulcer Outcome Not Healed -Ulcer Cleansing Rinsed/ Irrigated with Saline -Foul Odor after Cleansing No -Bioengineered Tissue No -Bleeding Controlled with Pressure -Offloading No -Treatment Response Procedure Tolerated Well #9 Lower Lumbar- Midline -Time 13:15 -Correct Patient Yes -Correct Side, Site, Position Yes -Correct Procedure Yes -Procedure Performed Yes -Type of Procedure Debridement -Clinical Debridement Subcutaneous -Post Debridement Size (cm) - Length 13.2 -Post Debridement Size (cm) - Width 4.2 -Post Debridement Size (cm) - Depth 0.4 -Total Square Cm 55.44 -Wound/Ulcer Outcome Not Healed -Ulcer Cleansing Rinsed/ Irrigated with Saline -Foul Odor after Cleansing No -Bioengineered Tissue No -Bleeding Controlled with Pressure -Offloading No -Treatment Response Procedure Tolerated Well Pain Scale: 0-10 Numeric Is Patient Pain Free? Yes Wound debrided: left heel Laterality: Left Type of Debridement: Excisional debridement Anesthesia Used: 4% Lidocaine Solution, 5% Lidocaine Gel Depth: Down to and including healthy tissue, in the subcutaneous layer Percentage of wound debrided: 100 Instrument Used: 3mm curette Tissue Removed: yellow slough, devitalized tissue Severity: Fat Layer Exposed Amount of bleeding with debridement: Mild Bleeding Controlled with: Compression and gauze Patient tolerated procedure well - Additional Wound Wound debrided: lower lumbar - midline Laterality: Not Applicable Type of Debridement: Excisional debridement Anesthesia Used: 4% Lidocaine Solution, 5% Lidocaine Gel Depth: Down to and including healthy tissue, in the subcutaneous layer Percentage of wound debrided: 100 Instrument Used: 5mm curette Tissue Removed: yellow slough, devitalized tissue Severity: Fat Layer Exposed Amount of bleeding with debridement: Mild Bleeding Controlled with: Compression and gauze Patient tolerated procedure: Patient tolerated procedure well Assessment/Plan Active Problems (Last Updated 06/16/18 @ 18:13 by Charisse Couch MD) Venous stasis ulcer of heel with fat layer exposed (Chronic) Nonhealing surgical wound (Chronic) Assessment: chronic surgical wound dehiscence lumbar with complex abscess and recent surgical debridement. malnutrition. other multiple comorbidities. edema bilateral lower extremities. Bleeding site from within wound controlled with combination of silver nitrate and Surgifoam. Bleeding appears to be controlled. venous insufficiency. immunocompromised status. Plan: Evaluated Cuong's wounds today and debrided his left heel ulcer and lumbar wound. There has been some improvement in the edges of his lumbar wound. There is no further odor from his wound. Erythema and tenderness is improved. His heel ulcer is improved. Will continue to use Aquacel, ABD, and KerraMaxCare with changes once daily for heavy amount of drainage of his lumbar wound. His left heel will continue to use Guera over the wound with dressings changed daily for moderate to large amount of drainage. Continue increased protein intake. F/U in [address] Wick and plan for application of Theraskin.
--- NOTE | 2018-09-26 19:26 | PN.PCM_ITS ---
(1) Venous stasis ulcer of heel with fat layer exposed Status: Chronic Current Visit: Yes Qualifiers: Varicose vein presence: with varicose veins Laterality: left Qualified Code(s): I83.024 - Varicose veins of left lower extremity with ulcer of heel and midfoot; L97.422 - Non-pressure chronic ulcer of left heel and midfoot with fat layer exposed Code(s): I83.004 - Varicose veins of unspecified lower extremity with ulcer of heel and midfoot; L97.402 - Non-pressure chronic ulcer of unspecified heel and midfoot with fat layer exposed (2) Nonhealing surgical wound Status: Chronic Current Visit: Yes Qualifiers: Encounter type: subsequent encounter Code(s): T81.89XA - Other complications of procedures, not elsewhere classified, initial encounter Type of Wound Date of Service: 09/26/18 Chief Complaint: Nonhealing surgical wound of lower back, ulcer of left heel History of Wound: Mr. Marshall is a 73-yo who has been seen here at the wound center for a nonhealing surgical wound of his lower back s/p surgical debridement for an abscess s/p lumbar spine surgery. His original surgery on his lower back was approximately 2016 and he has had multiple complications since that time. He underwent surgical debridement on 03/04/[address] Davila at [facility] in [place] and was discharged with a wound vac for healing by secondary intention with possible muscle flap closure in the future. He followed up with his surgeon on 04/18/17 for further evaluation and recommendations and they plan to close the wound with a muscle flap but he continues to develop infections. He is also being seen by Infectious Disease as needed. CT 02/2018 did not show any abscess. Progress of Wound: Cuong is here for follow-up of his nonhealing surgical wound of his lower back. His wound is showing improvement with applications of Theraskin. He tolerated antibiotic treatment. He continues to have heavy drainage from his wound. He is tolerating Guera to his heel and it is improved in size. There is a moderate amount of drainage. He has had 10 applications of Purapply to his lower back wound with mild improvement. He saw a plastic surgeon at [facility] on 04/02/18 who is hopeful to close Cuong's surgical wound with a skin flap. He requested additional records of CT scans as well as information on radiation that was done previously. Cuong saw the surgeon at [facility] again on August 27, 2018 and he does not think a skin flap would be an option but talked about doing a skin graft from his thigh to the lower back. He has been having increased pain in his back and left leg presumably from nerve impingement. Denies increased drainage, odor, fever or chills. - Physical Exam Vital Signs Temp Pulse Resp BP 96.8 F L 84 18 130/71 H 09/26/18 12:35 09/26/18 12:35 09/26/18 12:35 09/26/18 12:35 General: Alert, Oriented x3, Cooperative, No apparent distress HEENT: Atraumatic, Normocephalic Oral: Moist Mucosa Neck: Supple Extremities: Edema Skin: Ulcer/ Wound Wound Measurements and Assessment WC - Nurse 1 - General Ulcer Measurement Start: 09/05/18 12:38 Freq: Status: Active Protocol: Activity Type Activity Date Activity User E-Sign Co-Sign Detail Recorded Client Recorded Date Recorded By Document 09/26/18 12:35 [facility] [id number] 09/26/18 12:48 [facility] 09/26/18 12:35 Wound Center Nurse 1 [Ulcer Assessment] #10 Left Heel -Combined with other wound No -Current Size (cm) - Length 0.1 -Current Size (cm) - Width 1 -Current Size (cm) - Depth 0.2 -Total Square Cm 0.1 -Photo Taken No -Epithelialization Medium 34-66% -Tunneling No -Undermining/Tunneling No -Circular Undermining No -Exudate Amt None Present -Wound Margin Flat & Intact -Granulation Amt Large (67-100%) -Granulation Quality Pale [place] -Slough/Fibrin No -Necrosis Amt None Present (0 %) -Texture (Uma-wound Skin Appearance) Assessed Scarring -Moisture (Uma-wound Skin Appearance Assessed ) -Color (Uma-wound Skin Appearance) Assessed Erythema -Temperature (Uma-wound Skin No Abnormality Appearance) (Pt Warm) -Tenderness on Palpation (Mua-wound No Skin Appearance) -Ulcer Cleansing Rinsed/ Irrigated with Saline -Foul Odor after Cleansing No -Anesthetic Used 4% Lidocaine Solution #9 Lower Lumbar- Midline -Combined with other wound No -Current Size (cm) - Length 14 -Current Size (cm) - Width 4.2 -Current Size (cm) - Depth 0.1 -Total Square Cm 58.8 -Photo Taken No -Epithelialization None Present -Tunneling No -Undermining/Tunneling No -Circular Undermining No -Exudate Amt Large -Exudate Type Yellow/Green -Wound Margin Thickened & Rolled Under -Granulation Amt Medium (34-66%) -Granulation Quality Pale [place] -Slough/Fibrin Yes -Necrosis Amt Medium (34-66%) -Necrotic Tissue Type Adherent Slough -Texture (Uma-wound Skin Appearance) Assessed Scarring -Moisture (Uma-wound Skin Appearance Assessed ) -Color (Uma-wound Skin Appearance) Assessed -Temperature (Uma-wound Skin No Abnormality Appearance) (Pt Warm) -Tenderness on Palpation (Uma-wound No Skin Appearance) -Ulcer Cleansing Wound Cleanser -Foul Odor after Cleansing No -Anesthetic Used 4% Lidocaine Solution WC - Nurse 2 - General Ulcer CM Notes Start: 09/05/18 12:38 Freq: Status: Active Protocol: Activity Type Activity Date Activity User E-Sign Co-Sign Detail Recorded Client Recorded Date Recorded By Document 09/26/18 13:04 DV [id number] 09/26/18 13:22 DV 09/26/18 13:04 Wound Center Nurse 2 [Procedure/Treatment] #10 Left Heel -Time 13:11 -Correct Patient Yes -Correct Side, Site, Position Yes -Correct Procedure Yes -Procedure Performed Yes -Type of Procedure Debridement -Clinical Debridement Subcutaneous -Post Debridement Size (cm) - Length 0.1 -Post Debridement Size (cm) - Width 0.8 -Post Debridement Size (cm) - Depth 0.1 -Total Square Cm 0.08 -Wound/Ulcer Outcome Not Healed -Ulcer Cleansing Rinsed/ Irrigated with Saline -Foul Odor after Cleansing No -Bioengineered Tissue No -Bleeding Controlled with Pressure -Offloading No -Treatment Response Procedure Tolerated Well #9 Lower Lumbar- Midline -Time 13:15 -Correct Patient Yes -Correct Side, Site, Position Yes -Correct Procedure Yes -Procedure Performed Yes -Type of Procedure Debridement -Clinical Debridement Subcutaneous -Post Debridement Size (cm) - Length 13.2 -Post Debridement Size (cm) - Width 4.2 -Post Debridement Size (cm) - Depth 0.4 -Total Square Cm 55.44 -Wound/Ulcer Outcome Not Healed -Ulcer Cleansing Rinsed/ Irrigated with Saline -Foul Odor after Cleansing No -Bioengineered Tissue No -Bleeding Controlled with Pressure -Offloading No -Treatment Response Procedure Tolerated Well [See Physician Procedure note for Specifics] Pain Scale: 0-10 Numeric [Pain] -Is Patient Pain Free? Yes Psych/Mental Status: Normal Affect, Appropriate Debridement Note Post-Debridement Measurements/Treatment WC - Nurse 2 - General Ulcer CM Notes Start: 09/05/18 12:38 Freq: Status: Active Protocol: Activity Type Activity Date Activity User E-Sign Co-Sign Detail Recorded Client Recorded Date Recorded By Document 09/05/18 13:12 DV [id number] 09/05/18 13:17 DV Document 09/12/18 13:32 DV [id number] 09/12/18 13:45 DV Document 09/19/18 13:00 DV [id number] 09/19/18 13:13 DV Document 09/26/18 13:04 DV [id number] 09/26/18 13:22 DV 09/05/18 09/12/18 09/19/18 13:12 13:32 13:00 Wound Center Nurse 2 #10 Left Heel -Time 13:13 13:32 13:01 -Correct Patient Yes Yes Yes -Correct Side, Site, Position Yes Yes Yes -Correct Procedure Yes Yes Yes -Procedure Performed Yes Yes Yes -Type of Procedure Debridement Debridement Debridement -Clinical Debridement Subcutaneous Subcutaneous Subcutaneous -Post Debridement Size (cm) - Length 1.0 0.1 0.2 -Post Debridement Size (cm) - Width 0.1 1.2 1.0 -Post Debridement Size (cm) - Depth 0.1 0.1 0.1 -Total Square Cm 0.10 0.12 0.20 -Wound/Ulcer Outcome Not Healed Not Healed Not Healed -Ulcer Cleansing Rinsed/ Rinsed/ Irrigated with Irrigated with Saline Saline -Foul Odor after Cleansing No No -Bioengineered Tissue No No -Bleeding Controlled with Pressure Pressure Pressure -Offloading No No No -Treatment Response Procedure Procedure Procedure Tolerated Well Tolerated Well Tolerated Well #9 Lower Lumbar- Midline -Time 13:33 13:01 -Correct Patient Yes Yes -Correct Side, Site, Position Yes Yes -Correct Procedure Yes Yes -Procedure Performed Yes Yes -Type of Procedure Debridement Debridement -Clinical Debridement Subcutaneous Subcutaneous -Post Debridement Size (cm) - Length 13.3 13.3 -Post Debridement Size (cm) - Width 4.2 4.0 -Post Debridement Size (cm) - Depth 0.4 0.4 -Total Square Cm 55.86 53.20 -Wound/Ulcer Outcome Not Healed Not Healed -Ulcer Cleansing Rinsed/ Rinsed/ Irrigated with Irrigated with Saline Saline -Foul Odor after Cleansing No No -Bioengineered Tissue No No -Bleeding Controlled with Pressure Pressure SURGIFOAM -Offloading No No -Treatment Response Procedure Procedure Tolerated Well Tolerated Well Pain Scale: 0-10 Numeric Is Patient Pain Free? Yes Yes Yes 09/26/18 13:04 Wound Center Nurse 2 #10 Left Heel -Time 13:11 -Correct Patient Yes -Correct Side, Site, Position Yes -Correct Procedure Yes -Procedure Performed Yes -Type of Procedure Debridement -Clinical Debridement Subcutaneous -Post Debridement Size (cm) - Length 0.1 -Post Debridement Size (cm) - Width 0.8 -Post Debridement Size (cm) - Depth 0.1 -Total Square Cm 0.08 -Wound/Ulcer Outcome Not Healed -Ulcer Cleansing Rinsed/ Irrigated with Saline -Foul Odor after Cleansing No -Bioengineered Tissue No -Bleeding Controlled with Pressure -Offloading No -Treatment Response Procedure Tolerated Well #9 Lower Lumbar- Midline -Time 13:15 -Correct Patient Yes -Correct Side, Site, Position Yes -Correct Procedure Yes -Procedure Performed Yes -Type of Procedure Debridement -Clinical Debridement Subcutaneous -Post Debridement Size (cm) - Length 13.2 -Post Debridement Size (cm) - Width 4.2 -Post Debridement Size (cm) - Depth 0.4 -Total Square Cm 55.44 -Wound/Ulcer Outcome Not Healed -Ulcer Cleansing Rinsed/ Irrigated with Saline -Foul Odor after Cleansing No -Bioengineered Tissue No -Bleeding Controlled with Pressure -Offloading No -Treatment Response Procedure Tolerated Well Pain Scale: 0-10 Numeric Is Patient Pain Free? Yes Wound debrided: left heel Laterality: Left Type of Debridement: Excisional debridement Anesthesia Used: 4% Lidocaine Solution, 5% Lidocaine Gel Depth: Down to and including healthy tissue, in the subcutaneous layer Percentage of wound debrided: 100 Instrument Used: 3mm curette Tissue Removed: yellow slough, devitalized tissue Severity: Fat Layer Exposed Amount of bleeding with debridement: Mild Bleeding Controlled with: Compression and gauze Patient tolerated procedure well - Additional Wound Wound debrided: lower lumbar - midline Laterality: Not Applicable Type of Debridement: Excisional debridement Anesthesia Used: 4% Lidocaine Solution, 5% Lidocaine Gel Depth: Down to and including healthy tissue, in the subcutaneous layer Percentage of wound debrided: 100 Instrument Used: 5mm curette Tissue Removed: yellow slough, devitalized tissue Severity: Fat Layer Exposed Amount of bleeding with debridement: Mild Bleeding Controlled with: Compression and gauze Patient tolerated procedure: Patient tolerated procedure well Assessment/Plan Active Problems (Last Updated 06/16/18 @ 18:13 by Charisse Couch MD) Venous stasis ulcer of heel with fat layer exposed (Chronic) Nonhealing surgical wound (Chronic) Assessment: chronic surgical wound dehiscence lumbar with complex abscess and recent surgical debridement. malnutrition. other multiple comorbidities. edema bilateral lower extremities. Bleeding site from within wound controlled with combination of silver nitrate and Surgifoam. Bleeding appears to be controlled. venous insufficiency. immunocompromised status. Plan: Evaluated Cuong's wounds today and debrided his left heel ulcer and lumbar wound. There has been some improvement in the edges of his lumbar wound. There is no further odor from his wound. Erythema and tenderness is improved. His heel ulcer is improved. Will continue to use Aquacel, ABD, and KerraMaxCare with changes once daily for heavy amount of drainage of his lumbar wound. His left heel will continue to use Guera over the wound with dressings changed daily for moderate to large amount of drainage. Continue increased protein intake. F/U in [address] Wick and plan for application of Theraskin.
[2018-10-03 12:40] VITALS: BP 111/60; PULSE 90; RESP 16; TEMP 36.9; BMI 28.8
--- NOTE | 2018-10-03 15:32 | PCM.WC.PN ---
(1) Venous stasis ulcer of heel with fat layer exposed Status: Chronic Current Visit: Yes Qualifiers: Varicose vein presence: with varicose veins Laterality: left Qualified Code(s): I83.024 - Varicose veins of left lower extremity with ulcer of heel and midfoot; L97.422 - Non-pressure chronic ulcer of left heel and midfoot with fat layer exposed Code(s): I83.004 - Varicose veins of unspecified lower extremity with ulcer of heel and midfoot; L97.402 - Non-pressure chronic ulcer of unspecified heel and midfoot with fat layer exposed (2) Nonhealing surgical wound Status: Chronic Current Visit: Yes Qualifiers: Encounter type: subsequent encounter Code(s): T81.89XA - Other complications of procedures, not elsewhere classified, initial encounter Type of Wound Date of Service: 10/03/18 Chief Complaint: Nonhealing surgical wound of lower back, ulcer of left heel History of Wound: Mr. Marshall is a 73-yo who has been seen here at the wound center for a nonhealing surgical wound of his lower back s/p surgical debridement for an abscess s/p lumbar spine surgery. His original surgery on his lower back was approximately 2016 and he has had multiple complications since that time. He underwent surgical debridement on 03/04/[address] Davila at [facility] in [place] and was discharged with a wound vac for healing by secondary intention with possible muscle flap closure in the future. He followed up with his surgeon on 04/18/17 for further evaluation and recommendations and they plan to close the wound with a muscle flap but he continues to develop infections. He is also being seen by Infectious Disease as needed. CT 02/2018 did not show any abscess. Progress of Wound: Cuong is here for follow-up of his nonhealing surgical wound of his lower back. His wound is showing improvement with applications of Theraskin. He continues to have very heavy drainage from his wound. He is tolerating Guera to his heel and it is healed. He has had 10 applications of Purapply to his lower back wound with mild improvement. He saw a plastic surgeon at [facility] on 04/02/18 who is hopeful to close Cuong's surgical wound with a skin flap. He requested additional records of CT scans as well as information on radiation that was done previously. Cuong saw the surgeon at [facility] again on August 27, 2018 and he does not think a skin flap would be an option but talked about doing a skin graft from his thigh to the lower back. He has been having increased pain in his back and left leg presumably from nerve impingement. Denies increased drainage, odor, fever or chills. - Physical Exam Vital Signs Temp Pulse Resp BP 98.4 F 90 16 111/60 10/03/18 12:40 10/03/18 12:40 10/03/18 12:40 10/03/18 12:40 General: Alert, Oriented x3, Cooperative, No apparent distress HEENT: Atraumatic, Normocephalic Oral: Moist Mucosa Extremities: Edema Skin: Ulcer/ Wound Wound Measurements and Assessment WC - Nurse 1 - General Ulcer Measurement Start: 09/05/18 12:38 Freq: Status: Active Protocol: Activity Type Activity Date Activity User E-Sign Co-Sign Detail Recorded Client Recorded Date Recorded By Document 10/03/18 12:40 [facility] [id number] 10/03/18 12:54 [facility] 10/03/18 12:40 Wound Center Nurse 1 [Ulcer Assessment] #10 Left Heel -Combined with other wound No -Current Size (cm) - Length 0.1 -Current Size (cm) - Width 1.2 -Current Size (cm) - Depth 0.2 -Total Square Cm 0.12 -Photo Taken No -Epithelialization None Present -Tunneling No -Undermining/Tunneling No -Circular Undermining No -Exudate Amt None Present -Wound Margin Distinct, Outline Attached -Granulation Amt Large (67-100%) -Granulation Quality [place] -Slough/Fibrin No -Necrosis Amt None Present (0 %) -Texture (Uma-wound Skin Appearance) Assessed Scarring -Moisture (Uma-wound Skin Appearance Assessed ) Dry/Scaly -Color (Uma-wound Skin Appearance) Assessed -Temperature (Uma-wound Skin No Abnormality Appearance) (Pt Warm) -Tenderness on Palpation (Uma-wound No Skin Appearance) -Ulcer Cleansing Rinsed/ Irrigated with Saline -Foul Odor after Cleansing No -Anesthetic Used 4% Lidocaine Solution #9 Lower Lumbar- Midline -Combined with other wound No -Current Size (cm) - Length 14.1 -Current Size (cm) - Width 4.4 -Current Size (cm) - Depth 0.1 -Total Square Cm 62.04 -Photo Taken No -Epithelialization Small 1-33% -Tunneling No -Undermining/Tunneling No -Circular Undermining No -Exudate Amt Large -Exudate Type Yellow/Green -Wound Margin Thickened & Rolled Under -Granulation Amt Small (1-33%) -Granulation Quality Red -Slough/Fibrin Yes -Necrosis Amt Large (67-100%) -Necrotic Tissue Type Adherent Slough -Texture (Uma-wound Skin Appearance) Assessed Scarring -Moisture (Uma-wound Skin Appearance Assessed ) Dry/Scaly -Color (Uma-wound Skin Appearance) Assessed -Temperature (Uma-wound Skin No Abnormality Appearance) (Pt Warm) -Tenderness on Palpation (Uma-wound No Skin Appearance) -Ulcer Cleansing Wound Cleanser -Foul Odor after Cleansing No -Anesthetic Used 4% Lidocaine Solution WC - Nurse 2 - General Ulcer CM Notes Start: 09/05/18 12:38 Freq: Status: Active Protocol: Activity Type Activity Date Activity User E-Sign Co-Sign Detail Recorded Client Recorded Date Recorded By Document 10/03/18 13:10 MW [id number] 10/03/18 13:27 MW 10/03/18 13:10 Wound Center Nurse 2 [Procedure/Treatment] #10 Left Heel -Time 13:12 -Correct Patient Yes -Correct Side, Site, Position Yes -Correct Procedure Yes -Procedure Performed No -Post Debridement Size (cm) - Length 0 -Post Debridement Size (cm) - Width 0 -Post Debridement Size (cm) - Depth 0 -Total Square Cm 0 -Wound/Ulcer Outcome Healed- Epithelialized #9 Lower Lumbar- Midline -Time 13:13 -Correct Patient Yes -Correct Side, Site, Position Yes -Correct Procedure Yes -Procedure Performed Yes -Type of Procedure Debridement -Clinical Debridement Subcutaneous -Post Debridement Size (cm) - Length 13.0 -Post Debridement Size (cm) - Width 4.0 -Post Debridement Size (cm) - Depth 0.4 -Total Square Cm 52.00 -Wound/Ulcer Outcome Not Healed -Ulcer Cleansing Rinsed/ Irrigated with Saline -Foul Odor after Cleansing No -Bioengineered Tissue No -Bleeding Controlled with Pressure -Offloading No -Treatment Response Procedure Tolerated Well [See Physician Procedure note for Specifics] Pain Scale: 0-10 Numeric [Pain] -Is Patient Pain Free? Yes Psych/Mental Status: Normal Affect, Appropriate Debridement Note Post-Debridement Measurements/Treatment WC - Nurse 2 - General Ulcer CM Notes Start: 09/05/18 12:38 Freq: Status: Active Protocol: Activity Type Activity Date Activity User E-Sign Co-Sign Detail Recorded Client Recorded Date Recorded By Document 09/05/18 13:12 DV [id number] 09/05/18 13:17 DV Document 09/12/18 13:32 DV [id number] 09/12/18 13:45 DV Document 09/19/18 13:00 DV [id number] 09/19/18 13:13 DV Document 09/26/18 13:04 DV [id number] 09/26/18 13:22 DV Document 10/03/18 13:10 MW [id number] 10/03/18 13:27 MW 09/05/18 09/12/18 09/19/18 13:12 13:32 13:00 Wound Center Nurse 2 #10 Left Heel -Time 13:13 13:32 13:01 -Correct Patient Yes Yes Yes -Correct Side, Site, Position Yes Yes Yes -Correct Procedure Yes Yes Yes -Procedure Performed Yes Yes Yes -Type of Procedure Debridement Debridement Debridement -Clinical Debridement Subcutaneous Subcutaneous Subcutaneous -Post Debridement Size (cm) - Length 1.0 0.1 0.2 -Post Debridement Size (cm) - Width 0.1 1.2 1.0 -Post Debridement Size (cm) - Depth 0.1 0.1 0.1 -Total Square Cm 0.10 0.12 0.20 -Wound/Ulcer Outcome Not Healed Not Healed Not Healed -Ulcer Cleansing Rinsed/ Rinsed/ Irrigated with Irrigated with Saline Saline -Foul Odor after Cleansing No No -Bioengineered Tissue No No -Bleeding Controlled with Pressure Pressure Pressure -Offloading No No No -Treatment Response Procedure Procedure Procedure Tolerated Well Tolerated Well Tolerated Well #9 Lower Lumbar- Midline -Time 13:33 13:01 -Correct Patient Yes Yes -Correct Side, Site, Position Yes Yes -Correct Procedure Yes Yes -Procedure Performed Yes Yes -Type of Procedure Debridement Debridement -Clinical Debridement Subcutaneous Subcutaneous -Post Debridement Size (cm) - Length 13.3 13.3 -Post Debridement Size (cm) - Width 4.2 4.0 -Post Debridement Size (cm) - Depth 0.4 0.4 -Total Square Cm 55.86 53.20 -Wound/Ulcer Outcome Not Healed Not Healed -Ulcer Cleansing Rinsed/ Rinsed/ Irrigated with Irrigated with Saline Saline -Foul Odor after Cleansing No No -Bioengineered Tissue No No -Bleeding Controlled with Pressure Pressure SURGIFOAM -Offloading No No -Treatment Response Procedure Procedure Tolerated Well Tolerated Well Pain Scale: 0-10 Numeric Is Patient Pain Free? Yes Yes Yes 09/26/18 10/03/18 13:04 13:10 Wound Center Nurse 2 #10 Left Heel -Time 13:11 13:12 -Correct Patient Yes Yes -Correct Side, Site, Position Yes Yes -Correct Procedure Yes Yes -Procedure Performed Yes No -Type of Procedure Debridement -Clinical Debridement Subcutaneous -Post Debridement Size (cm) - Length 0.1 0 -Post Debridement Size (cm) - Width 0.8 0 -Post Debridement Size (cm) - Depth 0.1 0 -Total Square Cm 0.08 0 -Wound/Ulcer Outcome Not Healed Healed- Epithelialized -Ulcer Cleansing Rinsed/ Irrigated with Saline -Foul Odor after Cleansing No -Bioengineered Tissue No -Bleeding Controlled with Pressure -Offloading No -Treatment Response Procedure Tolerated Well #9 Lower Lumbar- Midline -Time 13:15 13:13 -Correct Patient Yes Yes -Correct Side, Site, Position Yes Yes -Correct Procedure Yes Yes -Procedure Performed Yes Yes -Type of Procedure Debridement Debridement -Clinical Debridement Subcutaneous Subcutaneous -Post Debridement Size (cm) - Length 13.2 13.0 -Post Debridement Size (cm) - Width 4.2 4.0 -Post Debridement Size (cm) - Depth 0.4 0.4 -Total Square Cm 55.44 52.00 -Wound/Ulcer Outcome Not Healed Not Healed -Ulcer Cleansing Rinsed/ Rinsed/ Irrigated with Irrigated with Saline Saline -Foul Odor after Cleansing No No -Bioengineered Tissue No No -Bleeding Controlled with Pressure Pressure -Offloading No No -Treatment Response Procedure Procedure Tolerated Well Tolerated Well Pain Scale: 0-10 Numeric Is Patient Pain Free? Yes Yes Wound debrided: left heel Laterality: Left No debridement was completed today - the ulcer is healed - Additional Wound Wound debrided: lower lumbar midline Laterality: Not Applicable Type of Debridement: Excisional debridement Anesthesia Used: 4% Lidocaine Solution Depth: Down to and including healthy tissue, in the subcutaneous layer Percentage of wound debrided: 100 Instrument Used: 5mm curette Tissue Removed: yellow slough, devitalized tissue Severity: Fat Layer Exposed Amount of bleeding with debridement: Moderate Bleeding Controlled with: Compression and gauze, Gel Foam Patient tolerated procedure: Patient tolerated procedure well Assessment/Plan Active Problems (Last Updated 06/16/18 @ 18:13 by Charisse Couch MD) Venous stasis ulcer of heel with fat layer exposed (Chronic) Nonhealing surgical wound (Chronic) Assessment: chronic surgical wound dehiscence lumbar with complex abscess and recent surgical debridement. malnutrition. other multiple comorbidities. edema bilateral lower extremities. Bleeding site from within wound controlled with combination of silver nitrate and Surgifoam. Bleeding appears to be controlled. venous insufficiency. immunocompromised status. Plan: Evaluated Cuong's wounds today and debrided his lumbar wound. There has been some improvement in the edges of his lumbar wound. There is no further odor from his wound. Erythema and tenderness is improved. His heel ulcer is improved. His reports increased drainage. Will continue to use Aquacel, ABD, and KerraMaxCare with changes once daily for heavy amount of drainage of his lumbar wound. His left heel is healed. Continue increased protein intake. F/U in [address] Wick and plan for application of Theraskin.
--- NOTE | 2018-10-03 15:37 | PN.PCM_ITS ---
(1) Venous stasis ulcer of heel with fat layer exposed Status: Chronic Current Visit: Yes Qualifiers: Varicose vein presence: with varicose veins Laterality: left Qualified Code(s): I83.024 - Varicose veins of left lower extremity with ulcer of heel and midfoot; L97.422 - Non-pressure chronic ulcer of left heel and midfoot with fat layer exposed Code(s): I83.004 - Varicose veins of unspecified lower extremity with ulcer of heel and midfoot; L97.402 - Non-pressure chronic ulcer of unspecified heel and midfoot with fat layer exposed (2) Nonhealing surgical wound Status: Chronic Current Visit: Yes Qualifiers: Encounter type: subsequent encounter Code(s): T81.89XA - Other complications of procedures, not elsewhere classified, initial encounter Type of Wound Date of Service: 10/03/18 Chief Complaint: Nonhealing surgical wound of lower back, ulcer of left heel History of Wound: Mr. Marshall is a 73-yo who has been seen here at the wound center for a nonhealing surgical wound of his lower back s/p surgical debridement for an abscess s/p lumbar spine surgery. His original surgery on his lower back was approximately 2016 and he has had multiple complications since that time. He underwent surgical debridement on 03/04/[address] Davila at [facility] in [place] and was discharged with a wound vac for healing by secondary intention with possible muscle flap closure in the future. He followed up with his surgeon on 04/18/17 for further evaluation and recommendations and they plan to close the wound with a muscle flap but he continues to develop infections. He is also being seen by Infectious Disease as needed. CT 02/2018 did not show any abscess. Progress of Wound: Cuong is here for follow-up of his nonhealing surgical wound of his lower back. His wound is showing improvement with applications of Theraskin. He continues to have very heavy drainage from his wound. He is tolerating Guera to his heel and it is healed. He has had 10 applications of Purapply to his lower back wound with mild improvement. He saw a plastic surgeon at [facility] on 04/02/18 who is hopeful to close Cuong's surgical wound with a skin flap. He requested additional records of CT scans as well as information on radiation that was done previously. Cuong saw the surgeon at [facility] again on August 27, 2018 and he does not think a skin flap would be an option but talked about doing a skin graft from his thigh to the lower back. He has been having increased pain in his back and left leg presumably from nerve impingement. Denies increased drainage, odor, fever or chills. - Physical Exam Vital Signs Temp Pulse Resp BP 98.4 F 90 16 111/60 10/03/18 12:40 10/03/18 12:40 10/03/18 12:40 10/03/18 12:40 General: Alert, Oriented x3, Cooperative, No apparent distress HEENT: Atraumatic, Normocephalic Oral: Moist Mucosa Extremities: Edema Skin: Ulcer/ Wound Wound Measurements and Assessment WC - Nurse 1 - General Ulcer Measurement Start: 09/05/18 12:38 Freq: Status: Active Protocol: Activity Type Activity Date Activity User E-Sign Co-Sign Detail Recorded Client Recorded Date Recorded By Document 10/03/18 12:40 [facility] [id number] 10/03/18 12:54 [facility] 10/03/18 12:40 Wound Center Nurse 1 [Ulcer Assessment] #10 Left Heel -Combined with other wound No -Current Size (cm) - Length 0.1 -Current Size (cm) - Width 1.2 -Current Size (cm) - Depth 0.2 -Total Square Cm 0.12 -Photo Taken No -Epithelialization None Present -Tunneling No -Undermining/Tunneling No -Circular Undermining No -Exudate Amt None Present -Wound Margin Distinct, Outline Attached -Granulation Amt Large (67-100%) -Granulation Quality [place] -Slough/Fibrin No -Necrosis Amt None Present (0 %) -Texture (Uma-wound Skin Appearance) Assessed Scarring -Moisture (Uma-wound Skin Appearance Assessed ) Dry/Scaly -Color (Uma-wound Skin Appearance) Assessed -Temperature (Uma-wound Skin No Abnormality Appearance) (Pt Warm) -Tenderness on Palpation (Uma-wound No Skin Appearance) -Ulcer Cleansing Rinsed/ Irrigated with Saline -Foul Odor after Cleansing No -Anesthetic Used 4% Lidocaine Solution #9 Lower Lumbar- Midline -Combined with other wound No -Current Size (cm) - Length 14.1 -Current Size (cm) - Width 4.4 -Current Size (cm) - Depth 0.1 -Total Square Cm 62.04 -Photo Taken No -Epithelialization Small 1-33% -Tunneling No -Undermining/Tunneling No -Circular Undermining No -Exudate Amt Large -Exudate Type Yellow/Green -Wound Margin Thickened & Rolled Under -Granulation Amt Small (1-33%) -Granulation Quality Red -Slough/Fibrin Yes -Necrosis Amt Large (67-100%) -Necrotic Tissue Type Adherent Slough -Texture (Uma-wound Skin Appearance) Assessed Scarring -Moisture (Uma-wound Skin Appearance Assessed ) Dry/Scaly -Color (Uma-wound Skin Appearance) Assessed -Temperature (Uma-wound Skin No Abnormality Appearance) (Pt Warm) -Tenderness on Palpation (Uma-wound No Skin Appearance) -Ulcer Cleansing Wound Cleanser -Foul Odor after Cleansing No -Anesthetic Used 4% Lidocaine Solution WC - Nurse 2 - General Ulcer CM Notes Start: 09/05/18 12:38 Freq: Status: Active Protocol: Activity Type Activity Date Activity User E-Sign Co-Sign Detail Recorded Client Recorded Date Recorded By Document 10/03/18 13:10 MW [id number] 10/03/18 13:27 MW 10/03/18 13:10 Wound Center Nurse 2 [Procedure/Treatment] #10 Left Heel -Time 13:12 -Correct Patient Yes -Correct Side, Site, Position Yes -Correct Procedure Yes -Procedure Performed No -Post Debridement Size (cm) - Length 0 -Post Debridement Size (cm) - Width 0 -Post Debridement Size (cm) - Depth 0 -Total Square Cm 0 -Wound/Ulcer Outcome Healed- Epithelialized #9 Lower Lumbar- Midline -Time 13:13 -Correct Patient Yes -Correct Side, Site, Position Yes -Correct Procedure Yes -Procedure Performed Yes -Type of Procedure Debridement -Clinical Debridement Subcutaneous -Post Debridement Size (cm) - Length 13.0 -Post Debridement Size (cm) - Width 4.0 -Post Debridement Size (cm) - Depth 0.4 -Total Square Cm 52.00 -Wound/Ulcer Outcome Not Healed -Ulcer Cleansing Rinsed/ Irrigated with Saline -Foul Odor after Cleansing No -Bioengineered Tissue No -Bleeding Controlled with Pressure -Offloading No -Treatment Response Procedure Tolerated Well [See Physician Procedure note for Specifics] Pain Scale: 0-10 Numeric [Pain] -Is Patient Pain Free? Yes Psych/Mental Status: Normal Affect, Appropriate Debridement Note Post-Debridement Measurements/Treatment WC - Nurse 2 - General Ulcer CM Notes Start: 09/05/18 12:38 Freq: Status: Active Protocol: Activity Type Activity Date Activity User E-Sign Co-Sign Detail Recorded Client Recorded Date Recorded By Document 09/05/18 13:12 DV [id number] 09/05/18 13:17 DV Document 09/12/18 13:32 DV [id number] 09/12/18 13:45 DV Document 09/19/18 13:00 DV [id number] 09/19/18 13:13 DV Document 09/26/18 13:04 DV [id number] 09/26/18 13:22 DV Document 10/03/18 13:10 MW [id number] 10/03/18 13:27 MW 09/05/18 09/12/18 09/19/18 13:12 13:32 13:00 Wound Center Nurse 2 #10 Left Heel -Time 13:13 13:32 13:01 -Correct Patient Yes Yes Yes -Correct Side, Site, Position Yes Yes Yes -Correct Procedure Yes Yes Yes -Procedure Performed Yes Yes Yes -Type of Procedure Debridement Debridement Debridement -Clinical Debridement Subcutaneous Subcutaneous Subcutaneous -Post Debridement Size (cm) - Length 1.0 0.1 0.2 -Post Debridement Size (cm) - Width 0.1 1.2 1.0 -Post Debridement Size (cm) - Depth 0.1 0.1 0.1 -Total Square Cm 0.10 0.12 0.20 -Wound/Ulcer Outcome Not Healed Not Healed Not Healed -Ulcer Cleansing Rinsed/ Rinsed/ Irrigated with Irrigated with Saline Saline -Foul Odor after Cleansing No No -Bioengineered Tissue No No -Bleeding Controlled with Pressure Pressure Pressure -Offloading No No No -Treatment Response Procedure Procedure Procedure Tolerated Well Tolerated Well Tolerated Well #9 Lower Lumbar- Midline -Time 13:33 13:01 -Correct Patient Yes Yes -Correct Side, Site, Position Yes Yes -Correct Procedure Yes Yes -Procedure Performed Yes Yes -Type of Procedure Debridement Debridement -Clinical Debridement Subcutaneous Subcutaneous -Post Debridement Size (cm) - Length 13.3 13.3 -Post Debridement Size (cm) - Width 4.2 4.0 -Post Debridement Size (cm) - Depth 0.4 0.4 -Total Square Cm 55.86 53.20 -Wound/Ulcer Outcome Not Healed Not Healed -Ulcer Cleansing Rinsed/ Rinsed/ Irrigated with Irrigated with Saline Saline -Foul Odor after Cleansing No No -Bioengineered Tissue No No -Bleeding Controlled with Pressure Pressure SURGIFOAM -Offloading No No -Treatment Response Procedure Procedure Tolerated Well Tolerated Well Pain Scale: 0-10 Numeric Is Patient Pain Free? Yes Yes Yes 09/26/18 10/03/18 13:04 13:10 Wound Center Nurse 2 #10 Left Heel -Time 13:11 13:12 -Correct Patient Yes Yes -Correct Side, Site, Position Yes Yes -Correct Procedure Yes Yes -Procedure Performed Yes No -Type of Procedure Debridement -Clinical Debridement Subcutaneous -Post Debridement Size (cm) - Length 0.1 0 -Post Debridement Size (cm) - Width 0.8 0 -Post Debridement Size (cm) - Depth 0.1 0 -Total Square Cm 0.08 0 -Wound/Ulcer Outcome Not Healed Healed- Epithelialized -Ulcer Cleansing Rinsed/ Irrigated with Saline -Foul Odor after Cleansing No -Bioengineered Tissue No -Bleeding Controlled with Pressure -Offloading No -Treatment Response Procedure Tolerated Well #9 Lower Lumbar- Midline -Time 13:15 13:13 -Correct Patient Yes Yes -Correct Side, Site, Position Yes Yes -Correct Procedure Yes Yes -Procedure Performed Yes Yes -Type of Procedure Debridement Debridement -Clinical Debridement Subcutaneous Subcutaneous -Post Debridement Size (cm) - Length 13.2 13.0 -Post Debridement Size (cm) - Width 4.2 4.0 -Post Debridement Size (cm) - Depth 0.4 0.4 -Total Square Cm 55.44 52.00 -Wound/Ulcer Outcome Not Healed Not Healed -Ulcer Cleansing Rinsed/ Rinsed/ Irrigated with Irrigated with Saline Saline -Foul Odor after Cleansing No No -Bioengineered Tissue No No -Bleeding Controlled with Pressure Pressure -Offloading No No -Treatment Response Procedure Procedure Tolerated Well Tolerated Well Pain Scale: 0-10 Numeric Is Patient Pain Free? Yes Yes Wound debrided: left heel Laterality: Left No debridement was completed today - the ulcer is healed - Additional Wound Wound debrided: lower lumbar midline Laterality: Not Applicable Type of Debridement: Excisional debridement Anesthesia Used: 4% Lidocaine Solution Depth: Down to and including healthy tissue, in the subcutaneous layer Percentage of wound debrided: 100 Instrument Used: 5mm curette Tissue Removed: yellow slough, devitalized tissue Severity: Fat Layer Exposed Amount of bleeding with debridement: Moderate Bleeding Controlled with: Compression and gauze, Gel Foam Patient tolerated procedure: Patient tolerated procedure well Assessment/Plan Active Problems (Last Updated 06/16/18 @ 18:13 by Charisse Couch MD) Venous stasis ulcer of heel with fat layer exposed (Chronic) Nonhealing surgical wound (Chronic) Assessment: chronic surgical wound dehiscence lumbar with complex abscess and recent surgical debridement. malnutrition. other multiple comorbidities. edema bilateral lower extremities. Bleeding site from within wound controlled with combination of silver nitrate and Surgifoam. Bleeding appears to be controlled. venous insufficiency. immunocompromised status. Plan: Evaluated Cuong's wounds today and debrided his lumbar wound. There has been some improvement in the edges of his lumbar wound. There is no further odor from his wound. Erythema and tenderness is improved. His heel ulcer is improved. His reports increased drainage. Will continue to use Aquacel, ABD, and KerraMaxCare with changes once daily for heavy amount of drainage of his lumbar wound. His left heel is healed. Continue increased protein intake. F/U in [address] Wick and plan for application of Theraskin.
== END 2018-10-03 23:59 ==
LOC: WC 12:30
PROVIDERS: Family Provider Family Medicine; PCP Family Medicine; Referring Provider Family Medicine; Visit Provider Family Medicine
DX: T81.31XA Disruption of external operation (surgical) wound, not elsewhere classified, initial encounter (principal); Y83.8 Other surgical procedures as the cause of abnormal reaction of the patient, or of later complication, without mention of misadventure at the time of the procedure; L03.312 Cellulitis of back [any part except buttock and flank]; I83.024 Varicose veins of left lower extremity with ulcer of heel and midfoot; L97.422 Non-pressure chronic ulcer of left heel and midfoot with fat layer exposed; I87.2 Venous insufficiency (chronic) (peripheral)
CPT/HCPCS: 11042; 11045; 87070; 87075; 87077; 87186; 87205

== ENCOUNTER → 2018-10-06 14:25 | Outpatient (CLI) | payer MEDICARE, OTHER, SELFPAY ==
[2015-10-31 10:00] VITALS: BMI 34.9
[2018-09-22 14:42] VITALS: BMI 28.1
[2018-10-03 12:40] VITALS: BMI 28.8
[2018-10-03 15:42] LABS: Hematocrit 24.4 % (40-54); Hemoglobin 7.6 g/dl (13.0-16.5); Mean Corp Hgb Conc 31.1 g/gl (32-36); Mean Corpuscular Hgb 34.7 pg (27.0-32.0); Mean Corpuscular Volume 111.4 fL (80-94); Mean Platelet Vol. 9.9 fl (6.2-12.0); Platelet Count 291 K/mm3 (150-450); RBC Distribution Width CV 19.4 % (11.6-14.6); RBC Distribution Width SD 76.7 fl (35.1-43.9); Red Blood Count 2.19 M/mm3 (4.6-6.2); White Blood Count 6.4 K/mm3 (4.4-11.0)
[2018-10-03 15:44] LABS: BUN 20 mg/dL (7-18); BUN/Creat Ratio 14.6 RATIO (10-20); Calcium,Total 7.7 mg/dL (8.5-10.1); Chloride 102 mmol/L (98-107); Creatinine, Serum 1.37 mg/dL (0.70-1.30); EST Glomerular Filtration Rate 54 mL/min (>60); Est Glom Filt Rate - Afr Amer 65 mL/min (>60); Glucose 83 mg/dL (74-106); Phosphorus 2.8 mg/dL (2.5-4.9); Potassium 4.2 mmol/L (3.5-5.1); Sodium Level 137 mmol/L (136-145)
[2018-10-03 15:55] LABS: PTHIN 141.5 pg/mL (18.4-80.1); Vitamin D,25 Hydroxy 18.5 ng/mL (29.95-100.01)
[2018-10-03 19:12] LABS: Scan Indicated on CBC? Y/N YES- FLAGS NOTED
[2018-10-06] MEDS: Epoetin Alfa-epbx 40,000 UNIT/ML 28000 UNIT SC (14:47)
[2018-10-06 14:51] VITALS: BP 109/57; PULSE 89; RESP 18; TEMP 36.8; O2SAT 98; BMI 28.8
== END ==
PROVIDERS: Family Provider Family Medicine; PCP Family Medicine; Referring Provider Internal Medicine Nephrology; Visit Provider Internal Medicine Nephrology
DX: N18.3 Chronic kidney disease, stage 3 (moderate) (principal); D63.1 Anemia in chronic kidney disease
CPT/HCPCS: 36415; 80069; 82306; 83970; 85027; 96372; Q5106

== ENCOUNTER → 2018-10-20 13:03 | Outpatient (CLI) | payer MEDICARE, OTHER, SELFPAY ==
[2015-10-31 10:00] VITALS: BMI 34.9
[2018-10-06 14:41] VITALS: BMI 28.1
[2018-10-17 15:11] VITALS: BMI 28.8
[2018-10-20 13:10] VITALS: BP 121/65; PULSE 87; RESP 16; TEMP 37.1; O2SAT 95; BMI 29.6
[2018-10-20 13:21] LABS: Hematocrit 24.7 % (40-54); Hemoglobin 7.6 g/dl (13.0-16.5)
[2018-10-20 13:33] LABS: Albumin, Serum 1.8 g/dL (3.2-5.0); BUN 21 mg/dL (7-18); Calcium,Total 7.7 mg/dL (8.5-10.1); Chloride 104 mmol/L (98-107); Creatinine, Serum 1.31 mg/dL (0.70-1.30); EST Glomerular Filtration Rate 57 mL/min (>60); Est Glom Filt Rate - Afr Amer 69 mL/min (>60); Estimated Creatinine Clearance 47.86 ml/min; Glucose 98 mg/dL (74-106); Phosphorus 2.4 mg/dL (2.5-4.9); Potassium 4.2 mmol/L (3.5-5.1); Sodium Level 140 mmol/L (136-145)
[2018-10-20] MEDS: Epoetin Alfa-epbx 40,000 UNIT/ML 28000 UNIT SC (13:47)
== END ==
PROVIDERS: Family Provider Family Medicine; PCP Family Medicine; Referring Provider Internal Medicine Nephrology; Visit Provider Internal Medicine Nephrology
DX: N18.3 Chronic kidney disease, stage 3 (moderate) (principal); D63.1 Anemia in chronic kidney disease
CPT/HCPCS: 36415; 80069; 85014; 85018; 96372; Q5106

== ENCOUNTER 2018-10-31 15:00 | Outpatient (RCR) | payer MEDICARE, OTHER, SELFPAY ==
[2015-10-31 10:00] VITALS: BMI 34.9
[2018-10-04 00:42] VITALS: BP 111/60; PULSE 90; RESP 16; TEMP 36.9
[2018-10-06 14:51] VITALS: BMI 28.8
[2018-10-10 15:13] VITALS: RESP 16; TEMP 37.5; BMI 28.8
--- NOTE | 2018-10-10 17:35 | PCM.WC.PN ---
(1) Nonhealing surgical wound Status: Chronic Current Visit: Yes Qualifiers: Encounter type: subsequent encounter Code(s): T81.89XA - Other complications of procedures, not elsewhere classified, initial encounter (2) Open wound of lower back Status: Chronic Current Visit: Yes Code(s): S31.000A - Unspecified open wound of lower back and pelvis without penetration into retroperitoneum, initial encounter Type of Wound Date of Service: 10/10/18 Chief Complaint: Nonhealing surgical wound of lower back, ulcer of left heel History of Wound: Mr. Marshall is a 73-yo who has been seen here at the wound center for a nonhealing surgical wound of his lower back s/p surgical debridement for an abscess s/p lumbar spine surgery. His original surgery on his lower back was approximately 2016 and he has had multiple complications since that time. He underwent surgical debridement on 03/04/[address] Davila at [facility] in [place] and was discharged with a wound vac for healing by secondary intention with possible muscle flap closure in the future. He followed up with his surgeon on 04/18/17 for further evaluation and recommendations and they plan to close the wound with a muscle flap but he continues to develop infections. He is also being seen by Infectious Disease as needed. CT 02/2018 did not show any abscess. Progress of Wound: Cuong is here for follow-up of his nonhealing surgical wound of his lower back. His wound is showing improvement with applications of Theraskin. He continues to have very heavy drainage from his wound. He has had 10 applications of Purapply to his lower back wound with mild improvement. He saw a plastic surgeon at [facility] on 04/02/18 who is hopeful to close Cuong's surgical wound with a skin flap. He requested additional records of CT scans as well as information on radiation that was done previously. Cuong saw the surgeon at [facility] [place] again on August 27, 2018 and he does not think a skin flap would be an option but talked about doing a skin graft from his thigh to the lower back. He has been having increased pain in his back and left leg presumably from nerve impingement. Denies increased drainage, odor, fever or chills. - Physical Exam Vital Signs Temp Pulse Resp BP 99.5 F H 90 16 111/60 10/10/18 15:13 10/04/18 00:42 10/10/18 15:13 10/04/18 00:42 General: Alert, Oriented x3, Cooperative, No apparent distress HEENT: Atraumatic, Normocephalic Oral: Moist Mucosa Neck: Supple Extremities: Edema Skin: Ulcer/ Wound Wound Measurements and Assessment WC - Nurse 1 - General Ulcer Measurement Start: 10/10/18 15:13 Freq: Status: Active Protocol: Activity Type Activity Date Activity User E-Sign Co-Sign Detail Recorded Client Recorded Date Recorded By Document 10/10/18 15:13 [facility] [id number] 10/10/18 15:29 [facility] 10/10/18 15:13 Wound Center Nurse 1 [Ulcer Assessment] #9 Lower Lumbar- Midline -Combined with other wound No -Current Size (cm) - Length 14 -Current Size (cm) - Width 4.4 -Current Size (cm) - Depth 0.2 -Total Square Cm 61.6 -Date of Last Picture (Recall this 10/10/18 field) -Photo Taken Yes -Epithelialization Small 1-33% -Tunneling No -Undermining/Tunneling No -Circular Undermining No -Exudate Amt Large -Exudate Type Serosanguineous -Wound Margin Distinct, Outline Attached -Granulation Amt Medium (34-66%) -Granulation Quality [place] -Slough/Fibrin Yes -Necrosis Amt Medium (34-66%) -Necrotic Tissue Type Adherent Slough -Texture (Uma-wound Skin Appearance) Assessed Scarring -Moisture (Uma-wound Skin Appearance Assessed ) Dry/Scaly -Color (Uma-wound Skin Appearance) Assessed -Temperature (Uma-wound Skin No Abnormality Appearance) (Pt Warm) -Tenderness on Palpation (Uma-wound No Skin Appearance) -Ulcer Cleansing Wound Cleanser -Foul Odor after Cleansing No -Anesthetic Used 4% Lidocaine Solution WC - Nurse 2 - General Ulcer CM Notes Start: 10/10/18 15:13 Freq: Status: Active Protocol: Activity Type Activity Date Activity User E-Sign Co-Sign Detail Recorded Client Recorded Date Recorded By Document 10/10/18 15:44 [id number] 10/10/18 16:06 DV 10/10/18 15:44 Wound Center Nurse 2 [Procedure/Treatment] -Time 15:53 -Correct Patient Yes -Correct Side, Site, Position Yes -Correct Procedure Yes -Procedure Performed Yes -Type of Procedure Debridement -Clinical Debridement Subcutaneous -Post Debridement Size (cm) - Length 13.8 -Post Debridement Size (cm) - Width 4.0 -Post Debridement Size (cm) - Depth 0.4 -Total Square Cm 55.20 -Wound/Ulcer Outcome Not Healed -Ulcer Cleansing Rinsed/ Irrigated with Saline -Foul Odor after Cleansing No -Bioengineered Tissue No -Expiration Date 01/04/23 -Product Lot Number [id number]/ [id number] -Percent Used 100 -Saline Lot Number [id number] -Bleeding Controlled with Pressure SURGIFOAM -Offloading No -Treatment Response Procedure Tolerated Well [See Physician Procedure note for Specifics] Pain Scale: 0-10 Numeric [Pain] -Is Patient Pain Free? Yes Psych/Mental Status: Normal Affect, Appropriate Debridement Note Post-Debridement Measurements/Treatment WC - Nurse 2 - General Ulcer CM Notes Start: 10/10/18 15:13 Freq: Status: Active Protocol: Activity Type Activity Date Activity User E-Sign Co-Sign Detail Recorded Client Recorded Date Recorded By Document 10/10/18 15:44 DV [id number] 10/10/18 16:06 DV 10/10/18 15:44 Wound Center Nurse 2 #9 Lower Lumbar- Midline -Time 15:53 -Correct Patient Yes -Correct Side, Site, Position Yes -Correct Procedure Yes -Procedure Performed Yes -Type of Procedure Debridement -Clinical Debridement Subcutaneous -Post Debridement Size (cm) - Length 13.8 -Post Debridement Size (cm) - Width 4.0 -Post Debridement Size (cm) - Depth 0.4 -Total Square Cm 55.20 -Wound/Ulcer Outcome Not Healed -Ulcer Cleansing Rinsed/ Irrigated with Saline -Foul Odor after Cleansing No -Bioengineered Tissue No -Expiration Date 01/04/23 -Product Lot Number [id number]/ [id number] -Percent Used 100 -Saline Lot Number [id number] -Bleeding Controlled with Pressure SURGIFOAM -Offloading No -Treatment Response Procedure Tolerated Well Pain Scale: 0-10 Numeric Is Patient Pain Free? Yes Wound debrided: lower lumbar midline Laterality: Not Applicable Type of Debridement: Excisional debridement Anesthesia Used: 4% Lidocaine Solution Depth: Down to and including healthy tissue, in the subcutaneous layer Percentage of wound debrided: 100 Instrument Used: 5mm curette Tissue Removed: yellow slough, devitalized tissue Severity: Fat Layer Exposed Amount of bleeding with debridement: Moderate Bleeding Controlled with: Compression and gauze, Gel Foam Patient tolerated procedure well Assessment/Plan Active Problems (Last Updated 06/16/18 @ 18:13 by Charisse Couch MD) Nonhealing surgical wound (Chronic) Open wound of lower back (Chronic) Assessment: chronic surgical wound dehiscence lumbar with complex abscess and recent surgical debridement. malnutrition. other multiple comorbidities. edema bilateral lower extremities. Bleeding site from within wound controlled with combination of silver nitrate and Surgifoam. Bleeding appears to be controlled. venous insufficiency. immunocompromised status. Plan: Evaluated Cuong's wounds today and debrided his lumbar wound. There has been some improvement in the edges of his lumbar wound. There is no further odor from his wound. Erythema and tenderness is improved. Theraskin applied today per log hooker guidelines to hus lumbar nonhealing sirgical wound and secured with dermabond at the edges. Wound veil used to cover and gauze packed into the wound. Will continue to use Aquacel and KerraMaxCare with changes once daily for heavy amount of drainage of his lumbar wound. Continue increased protein intake. F/U in [address] Wick.
--- NOTE | 2018-10-10 17:42 | PN.PCM_ITS ---
(1) Nonhealing surgical wound Status: Chronic Current Visit: Yes Qualifiers: Encounter type: subsequent encounter Code(s): T81.89XA - Other complications of procedures, not elsewhere classified, initial encounter (2) Open wound of lower back Status: Chronic Current Visit: Yes Code(s): S31.000A - Unspecified open wound of lower back and pelvis without penetration into retroperitoneum, initial encounter Type of Wound Date of Service: 10/10/18 Chief Complaint: Nonhealing surgical wound of lower back, ulcer of left heel History of Wound: Mr. Marshall is a 73-yo who has been seen here at the wound center for a nonhealing surgical wound of his lower back s/p surgical debr idement for an abscess s/p lumbar spine surgery. His original surgery on his lower back was approximately 2016 and he has had multiple complications since that time. He underwent surgical debridement on 03/04/[address] Davila at [facility] in [place] and was discharged with a wound vac for healing by secondary intention with possible muscle flap closure in the future. He followed up with his surgeon on 04/18/17 for further evaluation and recommendations and they plan to close the wound with a muscle flap but he continues to develop infections. He is also being seen by Infectious Disease as needed. CT 02/2018 did not show any abscess. Progress of Wound: Cuong is here for follow-up of his nonhealing surgical wound of his lower back. His wound is showing improvement with applications of Theraskin. He continues to have very heavy drainage from his wound. He has had 10 applications of Purapply to his lower back wound with mild improvement. He saw a plastic surgeon at [facility] on 04/02/18 who is hopeful to close Cuong's surgical wound with a skin flap. He requested additional records of CT scans as well as information on radiation that was done previously. Cuong saw the surgeon at [facility] again on August 27, 2018 and he does not think a skin flap would be an option but talked about doing a skin graft from his thigh to the lower back. He has been having increased pain in his back and left leg presumably from nerve impingement. Denies increased drainage, odor, fever or chills. - Physical Exam Vital Signs Temp Pulse Resp BP 99.5 F H 90 16 111/60 10/10/18 15:13 10/04/18 00:42 10/10/18 15:13 10/04/18 00:42 General: Alert, Oriented x3, Cooperative, No apparent distress HEENT: Atraumatic, Normocephalic Oral: Moist Mucosa Neck: Supple Extremities: Edema Skin: Ulcer/ Wound Wound Measurements and Assessment WC - Nurse 1 - General Ulcer Measurement Start: 10/10/18 15:13 Freq: Status: Active Protocol: Activity Type Activity Date Activity User E-Sign Co-Sign Detail Recorded Client Recorded Date Recorded By Document 10/10/18 15:13 [facility] [id number] 10/10/18 15:29 [facility] 10/10/18 15:13 Wound Center Nurse 1 [Ulcer Assessment] #9 Lower Lumbar- Midline -Combined with other wound No -Current Size (cm) - Length 14 -Current Size (cm) - Width 4.4 -Current Size (cm) - Depth 0.2 -Total Square Cm 61.6 -Date of Last Picture (Recall this 10/10/18 field) -Photo Taken Yes -Epithelialization Small 1-33% -Tunneling No -Undermining/Tunneling No -Circular Undermining No -Exudate Amt Large -Exudate Type Serosanguineous -Wound Margin Distinct, Outline Attached -Granulation Amt Medium (34-66%) -Granulation Quality [place] -Slough/Fibrin Yes -Necrosis Amt Medium (34-66%) -Necrotic Tissue Type Adherent Slough -Texture (Uma-wound Skin Appearance) Assessed Scarring -Moisture (Uma-wound Skin Appearance Assessed ) Dry/Scaly -Color (Uma-wound Skin Appearance) Assessed -Temperature (Uma-wound Skin No Abnormality Appearance) (Pt Warm) -Tenderness on Palpation (Uma-wound No Skin Appearance) -Ulcer Cleansing Wound Cleanser -Foul Odor after Cleansing No -Anesthetic Used 4% Lidocaine Solution WC - Nurse 2 - General Ulcer CM Notes Start: 10/10/18 15:13 Freq: Status: Active Protocol: Activity Type Activity Date Activity User E-Sign Co-Sign Detail Recorded Client Recorded Date Recorded By Document 10/10/18 15:44 [id number] 10/10/18 16:06 DV 10/10/18 15:44 Wound Center Nurse 2 [Procedure/Treatment] -Time 15:53 -Correct Patient Yes -Correct Side, Site, Position Yes -Correct Procedure Yes -Procedure Performed Yes -Type of Procedure Debridement -Clinical Debridement Subcutaneous -Post Debridement Size (cm) - Length 13.8 -Post Debridement Size (cm) - Width 4.0 -Post Debridement Size (cm) - Depth 0.4 -Total Square Cm 55.20 -Wound/Ulcer Outcome Not Healed -Ulcer Cleansing Rinsed/ Irrigated with Saline -Foul Odor after Cleansing No -Bioengineered Tissue No -Expiration Date 01/04/23 -Product Lot Number [id number]/ [id number] -Percent Used 100 -Saline Lot Number [id number] -Bleeding Controlled with Pressure SURGIFOAM -Offloading No -Treatment Response Procedure Tolerated Well [See Physician Procedure note for Specifics] Pain Scale: 0-10 Numeric [Pain] -Is Patient Pain Free? Yes Psych/Mental Status: Normal Affect, Appropriate Debridement Note Post-Debridement Measurements/Treatment WC - Nurse 2 - General Ulcer CM Notes Start: 10/10/18 15:13 Freq: Status: Active Protocol: Activity Type Activity Date Activity User E-Sign Co-Sign Detail Recorded Client Recorded Date Recorded By Document 10/10/18 15:44 DV [id number] 10/10/18 16:06 DV 10/10/18 15:44 Wound Center Nurse 2 #9 Lower Lumbar- Midline -Time 15:53 -Correct Patient Yes -Correct Side, Site, Position Yes -Correct Procedure Yes -Procedure Performed Yes -Type of Procedure Debridement -Clinical Debridement Subcutaneous -Post Debridement Size (cm) - Length 13.8 -Post Debridement Size (cm) - Width 4.0 -Post Debridement Size (cm) - Depth 0.4 -Total Square Cm 55.20 -Wound/Ulcer Outcome Not Healed -Ulcer Cleansing Rinsed/ Irrigated with Saline -Foul Odor after Cleansing No -Bioengineered Tissue No -Expiration Date 01/04/23 -Product Lot Number [id number]/ [id number] -Percent Used 100 -Saline Lot Number [id number] -Bleeding Controlled with Pressure SURGIFOAM -Offloading No -Treatment Response Procedure Tolerated Well Pain Scale: 0-10 Numeric Is Patient Pain Free? Yes Wound debrided: lower lumbar midline Laterality: Not Applicable Type of Debridement: Excisional debridement Anesthesia Used: 4% Lidocaine Solution Depth: Down to and including healthy tissue, in the subcutaneous layer Percentage of wound debrided: 100 Instrument Used: 5mm curette Tissue Removed: yellow slough, devitalized tissue Severity: Fat Layer Exposed Amount of bleeding with debridement: Moderate Bleeding Controlled with: Compression and gauze, Gel Foam Patient tolerated procedure well Assessment/Plan Active Problems (Last Updated 06/16/18 @ 18:13 by Charisse Couch MD) Nonhealing surgical wound (Chronic) Open wound of lower back (Chronic) Assessment: chronic surgical wound dehiscence lumbar with complex abscess and recent surgical debridement. malnutrition. other multiple comorbidities. edema bilateral lower extremities. Bleeding site from within wound controlled with combination of silver nitrate and Surgifoam. Bleeding appears to be controlled. venous insufficiency. immunocompromised status. Plan: Evaluated Cuong's wounds today and debrided his lumbar wound. There has been some improvement in the edges of his lumbar wound. There is no further odor from his wound. Erythema and tenderness is improved. Theraskin applied today per explosives operator guidelines to hus lumbar nonhealing sirgical wound and secured with dermabond at the edges. Wound veil used to cover and gauze packed into the wound. Will continue to use Aquacel and KerraMaxCare with changes once daily for heavy amount of drainage of his lumbar wound. Continue increased protein intake. F/U in [address] Wick.
[2018-10-17 15:11] VITALS: BP 138/70; PULSE 105; RESP 16; TEMP 36.8; BMI 28.8
--- NOTE | 2018-10-17 15:19 | WC ---
theraskin/dermabond left intact. per pt, half of it fell out at home.
--- NOTE | 2018-10-17 19:36 | PCM.WC.PN ---
(1) Nonhealing surgical wound Status: Chronic Current Visit: Yes Qualifiers: Encounter type: subsequent encounter Code(s): T81.89XA - Other complications of procedures, not elsewhere classified, initial encounter (2) Open wound of lower back Status: Chronic Current Visit: Yes Code(s): S31.000A - Unspecified open wound of lower back and pelvis without penetration into retroperitoneum, initial encounter Type of Wound Date of Service: 10/17/18 Chief Complaint: Nonhealing surgical wound of lower back, ulcer of left heel History of Wound: Mr. Marshall is a 73-yo who has been seen here at the wound center for a nonhealing surgical wound of his lower back s/p surgical debridement for an abscess s/p lumbar spine surgery. His original surgery on his lower back was approximately 2016 and he has had multiple complications since that time. He underwent surgical debridement on 03/04/[address] Davila at [facility] in [place] and was discharged with a wound vac for healing by secondary intention with possible muscle flap closure in the future. He followed up with his surgeon on 04/18/17 for further evaluation and recommendations and they plan to close the wound with a muscle flap but he continues to develop infections. He is also being seen by Infectious Disease as needed. CT 02/2018 did not show any abscess. Progress of Wound: Cuong is here for follow-up of his nonhealing surgical wound of his lower back. His wound is showing mild improvement with applications of Theraskin. He continues to have very heavy drainage from his wound. He has had 10 applications of Purapply to his lower back wound with mild improvement. He saw a plastic surgeon at [facility] on 04/02/18 who is hopeful to close Cuong's surgical wound with a skin flap. He requested additional records of CT scans as well as information on radiation that was done previously. Cuong saw the surgeon at [facility] again on August 27, 2018 and he does not think a skin flap would be an option but talked about doing a skin graft from his thigh to the lower back. He has been having increased pain in his back and left leg presumably from nerve impingement. Denies increased drainage, odor, fever or chills. - Physical Exam Vital Signs Temp Pulse Resp BP 98.2 F 105 H 16 138/70 H 10/17/18 15:11 10/17/18 15:11 10/17/18 15:11 10/17/18 15:11 General: Alert, Oriented x3, Cooperative, No apparent distress HEENT: Atraumatic, Normocephalic Oral: Moist Mucosa Neck: Supple Lungs: Clear to auscultation Cardiovascular: Regular rate, Regular Rhythm Extremities: Edema Skin: Ulcer/ Wound Wound Measurements and Assessment - Nurse 1 - General Ulcer Measurement Start: 10/10/18 15:13 Freq: Status: Active Protocol: Activity Type Activity Date Activity User E-Sign Co-Sign Detail Recorded Client Recorded Date Recorded By Document 10/17/18 15:11 [facility] [id number] 10/17/18 15:19 [facility] 10/17/18 15:11 Wound Center Nurse 1 [Ulcer Assessment] #9 Lower Lumbar- Midline -Combined with other wound No -Current Size (cm) - Length 0.1 -Current Size (cm) - Width 0.1 -Current Size (cm) - Depth 0.1 -Total Square Cm 0.01 -Photo Taken No -Epithelialization None Present -Tunneling No -Undermining/Tunneling No -Circular Undermining No -Exudate Amt Large -Exudate Type Serosanguineous -Wound Margin Thickened & Rolled Under -Granulation Amt Small (1-33%) -Granulation Quality [place] -Slough/Fibrin Yes -Necrosis Amt Large (67-100%) -Necrotic Tissue Type Adherent Slough -Texture (Uma-wound Skin Appearance) Assessed Scarring -Moisture (Uma-wound Skin Appearance Assessed ) Dry/Scaly -Color (Uma-wound Skin Appearance) Assessed -Temperature (Uma-wound Skin No Abnormality Appearance) (Pt Warm) -Tenderness on Palpation (Uma-wound No Skin Appearance) -Ulcer Cleansing Wound Cleanser WC - Nurse 2 - General Ulcer CM Notes Start: 10/10/18 15:13 Freq: Status: Active Protocol: Activity Type Activity Date Activity User E-Sign Co-Sign Detail Recorded Client Recorded Date Recorded By Document 10/17/18 16:14 DV [id number] 10/17/18 16:22 DV 10/17/18 16:14 Wound Center Nurse 2 [Procedure/Treatment] -Time 16:17 -Correct Patient Yes -Correct Side, Site, Position Yes -Correct Procedure Yes -Procedure Performed Yes -Type of Procedure Debridement -Clinical Debridement Subcutaneous Selective -Post Debridement Size (cm) - Length 13.8 -Post Debridement Size (cm) - Width 4.0 -Post Debridement Size (cm) - Depth 0.4 -Total Square Cm 55.20 -Wound/Ulcer Outcome Not Healed -Ulcer Cleansing Rinsed/ Irrigated with Saline -Foul Odor after Cleansing No -Bioengineered Tissue No -Bleeding Controlled with Pressure -Treatment Response Procedure Tolerated Well [See Physician Procedure note for Specifics] Pain Scale: 0-10 Numeric [Pain] -Is Patient Pain Free? Yes Psych/Mental Status: Normal Affect, Appropriate Debridement Note Post-Debridement Measurements/Treatment WC - Nurse 2 - General Ulcer CM Notes Start: 10/10/18 15:13 Freq: Status: Active Protocol: Activity Type Activity Date Activity User E-Sign Co-Sign Detail Recorded Client Recorded Date Recorded By Document 10/10/18 15:44 DV [id number] 10/10/18 16:06 DV Document 10/17/18 16:14 DV [id number] 10/17/18 16:22 DV 10/10/18 10/17/18 15:44 16:14 Wound Center Nurse 2 #9 Lower Lumbar- Midline -Time 15:53 16:17 -Correct Patient Yes Yes -Correct Side, Site, Position Yes Yes -Correct Procedure Yes Yes -Procedure Performed Yes Yes -Type of Procedure Debridement Debridement -Clinical Debridement Subcutaneous Subcutaneous Selective -Post Debridement Size (cm) - Length 13.8 13.8 -Post Debridement Size (cm) - Width 4.0 4.0 -Post Debridement Size (cm) - Depth 0.4 0.4 -Total Square Cm 55.20 55.20 -Wound/Ulcer Outcome Not Healed Not Healed -Ulcer Cleansing Rinsed/ Rinsed/ Irrigated with Irrigated with Saline Saline -Foul Odor after Cleansing No No -Bioengineered Tissue No No -Expiration Date 01/04/23 -Product Lot Number [id number]/ [id number] -Percent Used 100 -Saline Lot Number [id number] -Bleeding Controlled with Pressure Pressure SURGIFOAM -Offloading No -Treatment Response Procedure Procedure Tolerated Well Tolerated Well Pain Scale: 0-10 Numeric Is Patient Pain Free? Yes Yes Wound debrided: lower lumbar midline Laterality: Not Applicable Type of Debridement: Selective debridement Anesthesia Used: 4% Lidocaine Solution Depth: Down to and including healthy tissue Percentage of wound debrided: 50 Instrument Used: 5mm curette Tissue Removed: yellow slough, devitalized tissue Severity: Fat Layer Exposed Amount of bleeding with debridement: Mild Bleeding Controlled with: Compression and gauze Patient tolerated procedure well Assessment/Plan Active Problems (Last Updated 06/16/18 @ 18:13 by Charisse Couch MD) Nonhealing surgical wound (Chronic) Open wound of lower back (Chronic) Assessment: chronic surgical wound dehiscence lumbar with complex abscess and recent surgical debridement. malnutrition. other multiple comorbidities. edema bilateral lower extremities. Bleeding site from within wound controlled with combination of silver nitrate and Surgifoam. Bleeding appears to be controlled. venous insufficiency. immunocompromised status. Plan: Evaluated Cuong's wounds today and debrided his lumbar wound above where Theraskin was still adherant. There has been some improvement in the edges of his lumbar wound. There is no further odor from his wound. Erythema and tenderness aurrounding his wound has recurred and is very itchy. Will continue to use Aquacel and KerraMaxCare with changes once daily for heavy amount of drainage of his lumbar wound. Continue increased protein intake. F/U in [address] Wick.
--- NOTE | 2018-10-17 19:39 | PN.PCM_ITS ---
(1) Nonhealing surgical wound Status: Chronic Current Visit: Yes Qualifiers: Encounter type: subsequent encounter Code(s): T81.89XA - Other complications of procedures, not elsewhere classified, initial encounter (2) Open wound of lower back Status: Chronic Current Visit: Yes Code(s): S31.000A - Unspecified open wound of lower back and pelvis without penetration into retroperitoneum, initial encounter Type of Wound Date of Service: 10/17/18 Chief Complaint: Nonhealing surgical wound of lower back, ulcer of left heel History of Wound: Mr. Marshall is a 73-yo who has been seen here at the wound center for a nonhealing surgical wound of his lower back s/p surgical debr idement for an abscess s/p lumbar spine surgery. His original surgery on his lower back was approximately 2016 and he has had multiple complications since that time. He underwent surgical debridement on 03/04/[address] Davila at [facility] in [place] and was discharged with a wound vac for healing by secondary intention with possible muscle flap closure in the future. He followed up with his surgeon on 04/18/17 for further evaluation and recommendations and they plan to close the wound with a muscle flap but he continues to develop infections. He is also being seen by Infectious Disease as needed. CT 02/2018 did not show any abscess. Progress of Wound: Cuong is here for follow-up of his nonhealing surgical wound of his lower back. His wound is showing mild improvement with applications of Theraskin. He continues to have very heavy drainage from his wound. He has had 10 applications of Purapply to his lower back wound with mild improvement. He saw a plastic surgeon at [facility] on 04/02/18 who is hopeful to close Cuong's surgical wound with a skin flap. He requested additional records of CT scans as well as information on radiation that was done previously. Cuong saw the surgeon at [facility] again on August 27, 2018 and he does not think a skin flap would be an option but talked about doing a skin graft from his thigh to the lower back. He has been having increased pain in his back and left leg presumably from nerve impingement. Denies increased drainage, odor, fever or chills. - Physical Exam Vital Signs Temp Pulse Resp BP 98.2 F 105 H 16 138/70 H 10/17/18 15:11 10/17/18 15:11 10/17/18 15:11 10/17/18 15:11 General: Alert, Oriented x3, Cooperative, No apparent distress HEENT: Atraumatic, Normocephalic Oral: Moist Mucosa Neck: Supple Lungs: Clear to auscultation Cardiovascular: Regular rate, Regular Rhythm Extremities: Edema Skin: Ulcer/ Wound Wound Measurements and Assessment - Nurse 1 - General Ulcer Measurement Start: 10/10/18 15:13 Freq: Status: Active Protocol: Activity Type Activity Date Activity User E-Sign Co-Sign Detail Recorded Client Recorded Date Recorded By Document 10/17/18 15:11 [facility] [id number] 10/17/18 15:19 [facility] 10/17/18 15:11 Wound Center Nurse 1 [Ulcer Assessment] #9 Lower Lumbar- Midline -Combined with other wound No -Current Size (cm) - Length 0.1 -Current Size (cm) - Width 0.1 -Current Size (cm) - Depth 0.1 -Total Square Cm 0.01 -Photo Taken No -Epithelialization None Present -Tunneling No -Undermining/Tunneling No -Circular Undermining No -Exudate Amt Large -Exudate Type Serosanguineous -Wound Margin Thickened & Rolled Under -Granulation Amt Small (1-33%) -Granulation Quality Red -Slough/Fibrin Yes -Necrosis Amt Large (67-100%) -Necrotic Tissue Type Adherent Slough -Texture (Uma-wound Skin Appearance) Assessed Scarring -Moisture (Uma-wound Skin Appearance Assessed ) Dry/Scaly -Color (Uma-wound Skin Appearance) Assessed -Temperature (Uma-wound Skin No Abnormality Appearance) (Pt Warm) -Tenderness on Palpation (Uma-wound No Skin Appearance) -Ulcer Cleansing Wound Cleanser WC - Nurse 2 - General Ulcer CM Notes Start: 10/10/18 15:13 Freq: Status: Active Protocol: Activity Type Activity Date Activity User E-Sign Co-Sign Detail Recorded Client Recorded Date Recorded By Document 10/17/18 16:14 DV [id number] 10/17/18 16:22 DV 10/17/18 16:14 Wound Center Nurse 2 [Procedure/Treatment] -Time 16:17 -Correct Patient Yes -Correct Side, Site, Position Yes -Correct Procedure Yes -Procedure Performed Yes -Type of Procedure Debridement -Clinical Debridement Subcutaneous Selective -Post Debridement Size (cm) - Length 13.8 -Post Debridement Size (cm) - Width 4.0 -Post Debridement Size (cm) - Depth 0.4 -Total Square Cm 55.20 -Wound/Ulcer Outcome Not Healed -Ulcer Cleansing Rinsed/ Irrigated with Saline -Foul Odor after Cleansing No -Bioengineered Tissue No -Bleeding Controlled with Pressure -Treatment Response Procedure Tolerated Well [See Physician Procedure note for Specifics] Pain Scale: 0-10 Numeric [Pain] -Is Patient Pain Free? Yes Psych/Mental Status: Normal Affect, Appropriate Debridement Note Post-Debridement Measurements/Treatment WC - Nurse 2 - General Ulcer CM Notes Start: 10/10/18 15:13 Freq: Status: Active Protocol: Activity Type Activity Date Activity User E-Sign Co-Sign Detail Recorded Client Recorded Date Recorded By Document 10/10/18 15:44 DV [id number] 10/10/18 16:06 DV Document 10/17/18 16:14 DV [id number] 10/17/18 16:22 DV 10/10/18 10/17/18 15:44 16:14 Wound Center Nurse 2 #9 Lower Lumbar- Midline -Time 15:53 16:17 -Correct Patient Yes Yes -Correct Side, Site, Position Yes Yes -Correct Procedure Yes Yes -Procedure Performed Yes Yes -Type of Procedure Debridement Debridement -Clinical Debridement Subcutaneous Subcutaneous Selective -Post Debridement Size (cm) - Length 13.8 13.8 -Post Debridement Size (cm) - Width 4.0 4.0 -Post Debridement Size (cm) - Depth 0.4 0.4 -Total Square Cm 55.20 55.20 -Wound/Ulcer Outcome Not Healed Not Healed -Ulcer Cleansing Rinsed/ Rinsed/ Irrigated with Irrigated with Saline Saline -Foul Odor after Cleansing No No -Bioengineered Tissue No No -Expiration Date 01/04/23 -Product Lot Number [id number]/ [id number] -Percent Used 100 -Saline Lot Number [id number] -Bleeding Controlled with Pressure Pressure SURGIFOAM -Offloading No -Treatment Response Procedure Procedure Tolerated Well Tolerated Well Pain Scale: 0-10 Numeric Is Patient Pain Free? Yes Yes Wound debrided: lower lumbar midline Laterality: Not Applicable Type of Debridement: Selective debridement Anesthesia Used: 4% Lidocaine Solution Depth: Down to and including healthy tissue Percentage of wound debrided: 50 Instrument Used: 5mm curette Tissue Removed: yellow slough, devitalized tissue Severity: Fat Layer Exposed Amount of bleeding with debridement: Mild Bleeding Controlled with: Compression and gauze Patient tolerated procedure well Assessment/Plan Active Problems (Last Updated 06/16/18 @ 18:13 by Charisse Couch MD) Nonhealing surgical wound (Chronic) Open wound of lower back (Chronic) Assessment: chronic surgical wound dehiscence lumbar with complex abscess and recent surgical debridement. malnutrition. other multiple comorbidities. edema bilateral lower extremities. Bleeding site from within wound controlled with combination of silver nitrate and Surgifoam. Bleeding appears to be controlled. venous insufficiency. immunocompromised status. Plan: Evaluated Cuong's wounds today and debrided his lumbar wound above where Theraskin was still adherant. There has been some improvement in the edges of his lumbar wound. There is no further odor from his wound. Erythema and tenderness aurrounding his wound has recurred and is very itchy. Will continue to use Aquacel and KerraMaxCare with changes once daily for heavy amount of drainage of his lumbar wound. Continue increased protein intake. F/U in [address] Wick.
[2018-10-24 12:37] VITALS: BP 128/62; PULSE 91; RESP 18; TEMP 36; BMI 28.8
--- NOTE | 2018-10-24 14:40 | PCM.WC.PN ---
(1) Nonhealing surgical wound Status: Chronic Current Visit: Yes Qualifiers: Encounter type: subsequent encounter Qualified Code(s): T81.89XD - Other complications of procedures, not elsewhere classified, subsequent encounter Code(s): T81.89XA - Other complications of procedures, not elsewhere classified, initial encounter (2) Open wound of lower back Status: Chronic Current Visit: Yes Code(s): S31.000A - Unspecified open wound of lower back and pelvis without penetration into retroperitoneum, initial encounter (3) Candidal dermatitis Status: Acute Current Visit: Yes Code(s): B37.2 - Candidiasis of skin and nail Type of Wound Date of Service: 10/24/18 Chief Complaint: Nonhealing surgical wound of lower back History of Wound: Mr. Marshall is a 73-yo who has been seen here at the wound center for a nonhealing surgical wound of his lower back s/p surgical debridement for an abscess s/p lumbar spine surgery. His original surgery on his lower back was approximately 2016 and he has had multiple complications since that time. He underwent surgical debridement on 03/04/[address] Davila at [facility] in [place] and was discharged with a wound vac for healing by secondary intention with possible muscle flap closure in the future. He followed up with his surgeon on 04/18/17 for further evaluation and recommendations and they plan to close the wound with a muscle flap but he continues to develop infections. He is also being seen by Infectious Disease as needed. CT 02/2018 did not show any abscess. Progress of Wound: Cuong is here for follow-up of his nonhealing surgical wound of his lower back. His wound is showing mild improvement with applications of Theraskin. He has some periwound erythema and itching. He continues to have very heavy drainage from his wound. He has had 10 applications of Purapply to his lower back wound with mild improvement. He saw a plastic surgeon at [facility] on 04/02/18 who is hopeful to close Cuong's surgical wound with a skin flap. He requested additional records of CT scans as well as information on radiation that was done previously. Cuong saw the surgeon at [facility] again on August 27, 2018 and he does not think a skin flap would be an option but talked about doing a skin graft from his thigh to the lower back. He has been having increased pain in his back and left leg presumably from nerve impingement. Denies increased drainage, odor, fever or chills. - Physical Exam Vital Signs Temp Pulse Resp BP 96.8 F L 91 18 128/62 H 10/24/18 12:37 10/24/18 12:37 10/24/18 12:37 10/24/18 12:37 General: Alert, Oriented x3, Cooperative, No apparent distress HEENT: Atraumatic, Normocephalic Oral: Moist Mucosa Extremities: Edema Skin: Ulcer/ Wound, Rash Present Wound Measurements and Assessment WC - Nurse 1 - General Ulcer Measurement Start: 10/10/18 15:13 Freq: Status: Active Protocol: Activity Type Activity Date Activity User E-Sign Co-Sign Detail Recorded Client Recorded Date Recorded By Document 10/24/18 12:37 [facility] [id number] 10/24/18 12:44 [facility] 10/24/18 12:37 Wound Center Nurse 1 [Ulcer Assessment] #9 Lower Lumbar- Midline -Combined with other wound No -Current Size (cm) - Length 14 -Current Size (cm) - Width 4 -Current Size (cm) - Depth 0.1 -Total Square Cm 56 -Photo Taken No -Epithelialization Small 1-33% -Tunneling No -Undermining/Tunneling No -Circular Undermining No -Exudate Amt Large -Exudate Type Serosanguineous -Wound Margin Thickened & Rolled Under -Granulation Amt Medium (34-66%) -Granulation Quality Red -Slough/Fibrin Yes -Necrosis Amt Medium (34-66%) -Necrotic Tissue Type Adherent Slough -Texture (Uma-wound Skin Appearance) Assessed, Scarring -Moisture (Uma-wound Skin Appearance Assessed,Dry/ ) Scaly -Color (Uma-wound Skin Appearance) Assessed, Erythema -Temperature (Uma-wound Skin No Abnormality Appearance) (Pt Warm) -Tenderness on Palpation (Uma-wound No Skin Appearance) -Ulcer Cleansing Wound Cleanser -Foul Odor after Cleansing No -Anesthetic Used 4% Lidocaine Solution WC - Nurse 2 - General Ulcer CM Notes Start: 10/10/18 15:13 Freq: Status: Active Protocol: Activity Type Activity Date Activity User E-Sign Co-Sign Detail Recorded Client Recorded Date Recorded By Document 10/24/18 12:54 AN [id number] 10/24/18 13:09 AN 10/24/18 12:54 Wound Center Nurse 2 [Procedure/Treatment] -Time 12:55 -Correct Patient Yes -Correct Side, Site, Position Yes -Correct Procedure Yes -Procedure Performed Yes -Type of Procedure Debridement -Clinical Debridement Subcutaneous -Post Debridement Size (cm) - Length 12.8 -Post Debridement Size (cm) - Width 4.3 -Post Debridement Size (cm) - Depth 0.4 -Total Square Cm 55.04 -Wound/Ulcer Outcome Not Healed -Ulcer Cleansing Rinsed/ Irrigated with Saline -Foul Odor after Cleansing Yes, Due to Product Use -Bioengineered Tissue No -Bleeding Controlled with Pressure -Treatment Response Procedure Tolerated Well [See Physician Procedure note for Specifics] Pain Scale: 0-10 Numeric [Pain] -Is Patient Pain Free? Yes Psych/Mental Status: Normal Affect, Appropriate Debridement Note Post-Debridement Measurements/Treatment WC - Nurse 2 - General Ulcer CM Notes Start: 10/10/18 15:13 Freq: Status: Active Protocol: Activity Type Activity Date Activity User E-Sign Co-Sign Detail Recorded Client Recorded Date Recorded By Document 10/10/18 15:44 DV [id number] 10/10/18 16:06 DV Document 10/17/18 16:14 DV [id number] 10/17/18 16:22 DV Document 10/24/18 12:54 AN [id number] 10/24/18 13:09 AN 10/10/18 10/17/18 10/24/18 15:44 16:14 12:54 Wound Center Nurse 2 #9 Lower Lumbar- Midline -Time 15:53 16:17 12:55 -Correct Patient Yes Yes Yes -Correct Side, Site, Position Yes Yes Yes -Correct Procedure Yes Yes Yes -Procedure Performed Yes Yes Yes -Type of Procedure Debridement Debridement Debridement -Clinical Debridement Subcutaneous Subcutaneous, Subcutaneous Selective -Post Debridement Size (cm) - Length 13.8 13.8 12.8 -Post Debridement Size (cm) - Width 4.0 4.0 4.3 -Post Debridement Size (cm) - Depth 0.4 0.4 0.4 -Total Square Cm 55.20 55.20 55.04 -Wound/Ulcer Outcome Not Healed Not Healed Not Healed -Ulcer Cleansing Rinsed/ Rinsed/ Rinsed/ Irrigated with Irrigated with Irrigated with Saline Saline Saline -Foul Odor after Cleansing No No Yes, Due to Product Use -Bioengineered Tissue No No No -Expiration Date 01/04/23 -Product Lot Number [id number]/ [id number] -Percent Used 100 -Saline Lot Number [id number] -Bleeding Controlled with Pressure, Pressure Pressure SURGIFOAM -Offloading No -Treatment Response Procedure Procedure Procedure Tolerated Well Tolerated Well Tolerated Well Pain Scale: 0-10 Numeric Is Patient Pain Free? Yes Yes Yes Wound debrided: lower lumbar midline Laterality: Not Applicable Type of Debridement: Excisional debridement Anesthesia Used: 4% Lidocaine Solution Depth: Down to and including healthy tissue, in the subcutaneous layer Percentage of wound debrided: 100 Instrument Used: 5mm curette Tissue Removed: yellow slough, devitalized tissue Severity: Fat Layer Exposed Amount of bleeding with debridement: Mild Bleeding Controlled with: Compression and gauze Patient tolerated procedure well Assessment/Plan Active Problems (Last Updated 06/16/18 @ 18:13 by Charisse Couch MD) Candidal dermatitis (Acute) Nonhealing surgical wound (Chronic) Open wound of lower back (Chronic) Assessment: chronic surgical wound dehiscence lumbar with complex abscess and recent surgical debridement. malnutrition. other multiple comorbidities. edema bilateral lower extremities. Bleeding site from within wound controlled with combination of silver nitrate and Surgifoam. Bleeding appears to be controlled. venous insufficiency. immunocompromised status. Plan: Evaluated Cuong's wounds today and debrided his lumbar wound. Theraskin debrided from his wound bed. There has been some improvement in the edges of his lumbar wound. There is no further odor from his wound. Erythema and tenderness aurrounding his wound has recurred and is very itchy. RX for diflucan sent to pharmacy. Will continue to use Aquacel and KerraMaxCare with changes once daily for heavy amount of drainage of his lumbar wound. Continue increased protein intake. F/U in [address] Wick.
[2018-10-31 14:40] VITALS: BP 158/86; PULSE 107; RESP 16; TEMP 37.4; BMI 28.8
--- NOTE | 2018-10-31 16:41 | PCM.WC.PN ---
(1) Nonhealing surgical wound Status: Chronic Current Visit: Yes Qualifiers: Encounter type: subsequent encounter Qualified Code(s): T81.89XD - Other complications of procedures, not elsewhere classified, subsequent encounter Code(s): T81.89XA - Other complications of procedures, not elsewhere classified, initial encounter (2) Open wound of lower back Status: Chronic Current Visit: Yes Code(s): S31.000A - Unspecified open wound of lower back and pelvis without penetration into retroperitoneum, initial encounter (3) Candidal dermatitis Status: Resolved Current Visit: Yes Code(s): B37.2 - Candidiasis of skin and nail (4) Cellulitis and abscess of trunk Status: Acute Current Visit: Yes Code(s): L03.319 - Cellulitis of trunk, unspecified; L02.219 - Cutaneous abscess of trunk, unspecified Type of Wound Date of Service: 10/31/18 Chief Complaint: Nonhealing surgical wound of lower back History of Wound: Mr. Marshall is a 73-yo who has been seen here at the wound center for a nonhealing surgical wound of his lower back s/p surgical debridement for an abscess s/p lumbar spine surgery. His original surgery on his lower back was approximately 2016 and he has had multiple complications since that time. He underwent surgical debridement on 03/04/[address] Davila at [facility] in [place] and was discharged with a wound vac for healing by secondary intention with possible muscle flap closure in the future. He followed up with his surgeon on 04/18/17 for further evaluation and recommendations and they plan to close the wound with a muscle flap but he continues to develop infections. He is also being seen by Infectious Disease as needed. CT 02/2018 did not show any abscess. Progress of Wound: Cuong is here for follow-up of his nonhealing surgical wound of his lower back. His wound is showing mild improvement with applications of Theraskin. He has some periwound erythema and itching. He does have an odor this week. He continues to have very heavy drainage from his wound. He has had 10 applications of Purapply to his lower back wound with mild improvement. Cuong saw the surgeon at [facility] again on August 27, 2018 and he does not think a skin flap would be an option but talked about doing a skin graft from his thigh to the lower back. He has been having increased pain in his back and left leg presumably from nerve impingement. Denies increased drainage, fever or chills. - Physical Exam Vital Signs Temp Pulse Resp BP 99.3 F H 107 H 16 158/86 H 10/31/18 14:40 10/31/18 14:40 10/31/18 14:40 10/31/18 14:40 General: Alert, Oriented x3, Cooperative, No apparent distress HEENT: Atraumatic, Normocephalic Oral: Moist Mucosa Extremities: Edema Skin: Ulcer/ Wound Wound Measurements and Assessment WC - Nurse 1 - General Ulcer Measurement Start: 10/10/18 15:13 Freq: Status: Active Protocol: Activity Type Activity Date Activity User E-Sign Co-Sign Detail Recorded Client Recorded Date Recorded By Document 10/31/18 14:40 BMF [id number] 10/31/18 14:50 BMF 10/31/18 14:40 Wound Center Nurse 1 [Ulcer Assessment] #9 Lower Lumbar- Midline -Combined with other wound No -Current Size (cm) - Length 14 -Current Size (cm) - Width 4 -Current Size (cm) - Depth 0.4 -Total Square Cm 56 -Photo Taken No -Epithelialization None Present -Tunneling No -Undermining/Tunneling No -Circular Undermining No -Exudate Amt Large -Exudate Type Serosanguineous -Wound Margin Thickened & Rolled Under -Granulation Amt Small (1-33%) -Granulation Quality [place] -Slough/Fibrin Yes -Necrosis Amt Large (67-100%) -Necrotic Tissue Type Adherent Slough -Texture (Uma-wound Skin Appearance) Assessed, Scarring -Moisture (Uma-wound Skin Appearance Assessed ) -Color (Uma-wound Skin Appearance) Assessed, Erythema -Temperature (Uma-wound Skin No Abnormality Appearance) (Pt Warm) -Tenderness on Palpation (Uma-wound Yes Skin Appearance) -Ulcer Cleansing SOAP AND WATER -Foul Odor after Cleansing No -Anesthetic Used 4% Lidocaine Solution WC - Nurse 2 - General Ulcer CM Notes Start: 10/10/18 15:13 Freq: Status: Active Protocol: Activity Type Activity Date Activity User E-Sign Co-Sign Detail Recorded Client Recorded Date Recorded By Document 10/31/18 14:58 MW [id number] 10/31/18 15:20 MW 10/31/18 14:58 Wound Center Nurse 2 [Procedure/Treatment] -Time 15:00 -Correct Patient Yes -Correct Side, Site, Position Yes -Correct Procedure Yes -Procedure Performed Yes -Type of Procedure Debridement -Clinical Debridement Subcutaneous -Post Debridement Size (cm) - Length 12.8 -Post Debridement Size (cm) - Width 4.3 -Post Debridement Size (cm) - Depth 0.4 -Total Square Cm 55.04 -Wound/Ulcer Outcome Not Healed -Ulcer Cleansing Rinsed/ Irrigated with Saline -Foul Odor after Cleansing No -Bioengineered Tissue Yes -Type of bioengineered Tissue [place] -Bleeding Controlled with Pressure -Offloading No -Treatment Response Procedure Tolerated Well [See Physician Procedure note for Specifics] Pain Scale: 0-10 Numeric [Pain] -Is Patient Pain Free? Yes Psych/Mental Status: Normal Affect, Appropriate Debridement Note Post-Debridement Measurements/Treatment WC - Nurse 2 - General Ulcer CM Notes Start: 10/10/18 15:13 Freq: Status: Active Protocol: Activity Type Activity Date Activity User E-Sign Co-Sign Detail Recorded Client Recorded Date Recorded By Document 10/10/18 15:44 DV [id number] 10/10/18 16:06 DV Document 10/17/18 16:14 DV [id number] 10/17/18 16:22 DV Document 10/24/18 12:54 AN [id number] 10/24/18 13:09 AN Document 10/31/18 14:58 MW [id number] 10/31/18 15:20 MW 10/10/18 10/17/18 10/24/18 15:44 16:14 12:54 Wound Center Nurse 2 #9 Lower Lumbar- Midline -Time 15:53 16:17 12:55 -Correct Patient Yes Yes Yes -Correct Side, Site, Position Yes Yes Yes -Correct Procedure Yes Yes Yes -Procedure Performed Yes Yes Yes -Type of Procedure Debridement Debridement Debridement -Clinical Debridement Subcutaneous Subcutaneous, Subcutaneous Selective -Post Debridement Size (cm) - Length 13.8 13.8 12.8 -Post Debridement Size (cm) - Width 4.0 4.0 4.3 -Post Debridement Size (cm) - Depth 0.4 0.4 0.4 -Total Square Cm 55.20 55.20 55.04 -Wound/Ulcer Outcome Not Healed Not Healed Not Healed -Ulcer Cleansing Rinsed/ Rinsed/ Rinsed/ Irrigated with Irrigated with Irrigated with Saline Saline Saline -Foul Odor after Cleansing No No Yes, Due to Product Use -Bioengineered Tissue No No No -Type of bioengineered Tissue -Expiration Date 01/04/23 -Product Lot Number [id number]/ [id number] -Percent Used 100 -Saline Lot Number [id number] -Bleeding Controlled with Pressure, Pressure Pressure SURGIFOAM -Offloading No -Treatment Response Procedure Procedure Procedure Tolerated Well Tolerated Well Tolerated Well Pain Scale: 0-10 Numeric Is Patient Pain Free? Yes Yes Yes 10/31/18 14:58 Wound Center Nurse 2 #9 Lower Lumbar- Midline -Time 15:00 -Correct Patient Yes -Correct Side, Site, Position Yes -Correct Procedure Yes -Procedure Performed Yes -Type of Procedure Debridement -Clinical Debridement Subcutaneous -Post Debridement Size (cm) - Length 12.8 -Post Debridement Size (cm) - Width 4.3 -Post Debridement Size (cm) - Depth 0.4 -Total Square Cm 55.04 -Wound/Ulcer Outcome Not Healed -Ulcer Cleansing Rinsed/ Irrigated with Saline -Foul Odor after Cleansing No -Bioengineered Tissue Yes -Type of bioengineered Tissue [place] -Expiration Date -Product Lot Number -Percent Used -Saline Lot Number -Bleeding Controlled with Pressure -Offloading No -Treatment Response Procedure Tolerated Well Pain Scale: 0-10 Numeric Is Patient Pain Free? Yes Wound debrided: lower lumbar midline Laterality: Not Applicable Type of Debridement: Excisional debridement Anesthesia Used: 4% Lidocaine Solution Depth: Down to and including healthy tissue, in the subcutaneous layer Percentage of wound debrided: 100 Instrument Used: 5mm curette Tissue Removed: yellow slough, devitalized tissue Severity: Fat Layer Exposed Amount of bleeding with debridement: Mild Bleeding Controlled with: Compression and gauze Patient tolerated procedure well Assessment/Plan Active Problems (Last Updated 06/16/18 @ 18:13 by Charisse Couch MD) Cellulitis and abscess of trunk (Acute) Nonhealing surgical wound (Chronic) Open wound of lower back (Chronic) Assessment: chronic surgical wound dehiscence lumbar with complex abscess and recent surgical debridement. malnutrition. other multiple comorbidities. edema bilateral lower extremities. Bleeding site from within wound controlled with combination of silver nitrate and Surgifoam. Bleeding appears to be controlled. venous insufficiency. immunocompromised status. Plan: Evaluated Cuong's wounds today and debrided his lumbar wound. There has been some improvement in the edges of his lumbar wound. There is odor from his wound. Culture taken and will treat based on results. Will continue to use Aquacel and KerraMaxCare with changes once daily for heavy amount of drainage of his lumbar wound. Continue increased protein intake. F/U in [address] Wick.
== END 2018-11-02 23:59 ==
LOC: WC 15:00
PROVIDERS: Family Provider Family Medicine; PCP Family Medicine; Referring Provider Family Medicine; Visit Provider Family Medicine
DX: T81.31XA Disruption of external operation (surgical) wound, not elsewhere classified, initial encounter (principal); L03.312 Cellulitis of back [any part except buttock and flank]; Y83.8 Other surgical procedures as the cause of abnormal reaction of the patient, or of later complication, without mention of misadventure at the time of the procedure; I87.2 Venous insufficiency (chronic) (peripheral)
CPT/HCPCS: 11042; 11045; 15271; 15272; 87070; 87075; 87077; 87186; 87205; Q4121

== ENCOUNTER → 2018-11-10 12:26 | Outpatient (CLI) | payer MEDICARE, OTHER, SELFPAY ==
[2015-10-31 10:00] VITALS: BMI 34.9
[2018-10-20 13:10] VITALS: BMI 29.6
[2018-11-07 11:06] VITALS: BMI 29.6
[2018-11-10 13:24] LABS: Hematocrit 23.3 % (40-54); Hemoglobin 7.3 g/dl (13.0-16.5)
[2018-11-10 13:27] LABS: Albumin, Serum 1.6 g/dL (3.2-5.0); BUN 23 mg/dL (7-18); BUN/Creat Ratio 16.1 RATIO (10-20); Calcium,Total 7.5 mg/dL (8.5-10.1); Chloride 109 mmol/L (98-107); Creatinine, Serum 1.43 mg/dL (0.70-1.30); EST Glomerular Filtration Rate 51 mL/min (>60); Est Glom Filt Rate - Afr Amer 62 mL/min (>60); Glucose 96 mg/dL (74-106); Magnesium 2.4 mg/dL (1.6-2.6); Phosphorus 4.3 mg/dL (2.5-4.9); Potassium 4.5 mmol/L (3.5-5.1); Sodium Level 141 mmol/L (136-145)
[2018-11-10] MEDS: Epoetin Alfa-epbx 40,000 UNIT/ML 30000 UNIT SC (13:39)
[2018-11-10 13:47] VITALS: BP 119/55; PULSE 76; RESP 16; TEMP 36.4; O2SAT 94; BMI 29.6
[2018-11-10 15:23] LABS: Absolute Lymphocyte Count 1.33 X10^3/ul (0.83-4.51); Absolute Neutrophil Count 2.5 X10^3/uL (2.0-7.7); Basophil% 1.6 % (0-1); Lymphocyte # 1.33 X10^3/ul (4.0); Lymphocyte % 26.4 % (19-41); Mean Corp Hgb Conc 31.6 g/gl (32-36); Mean Corpuscular Hgb 35.9 pg (27.0-32.0); Mean Corpuscular Volume 113.6 fL (80-94); Monocyte# 0.88 X10^3/uL; Monocyte% 17.5 % (0-10); Neutrophil % 49.5 % (47-70); Platelet Count 311 K/mm3 (150-450); RBC Distribution Width CV 18.7 % (11.6-14.6); RBC Distribution Width SD 74.6 fl (35.1-43.9); Red Blood Count 2.06 M/mm3 (4.6-6.2)
[2018-11-10 15:24] LABS: Basophil# 0.08 X10^3/uL; Differential Indicated SCAN CRITERIA MET; Eosinophil# 0.25 X10^3/uL; POSITIVE COUNT NO; POSITIVE DIFFERENTIAL NO; POSITIVE MORPHOLOGY YES
[2018-11-10 15:47] LABS: Differential Comment SCANNED
[2018-11-10 21:04] LABS: Xtra Tube EP Lab EXTRA TUBE
== END ==
PROVIDERS: Family Provider Family Medicine; PCP Family Medicine; Referring Provider Internal Medicine Nephrology; Visit Provider Internal Medicine Nephrology
DX: N18.3 Chronic kidney disease, stage 3 (moderate) (principal); D63.1 Anemia in chronic kidney disease; S21.209A Unspecified open wound of unspecified back wall of thorax without penetration into thoracic cavity, initial encounter; R53.1 Weakness; M79.604 Pain in right leg; M79.605 Pain in left leg
CPT/HCPCS: 36415; 80069; 83735; 85014; 85018; 85025; 86140; 96372; Q5106

== ENCOUNTER → 2018-11-24 12:15 | Outpatient (CLI) | payer MEDICARE, OTHER, SELFPAY ==
[2015-10-31 10:00] VITALS: BMI 34.9
[2018-11-07 11:06] VITALS: BMI 29.6
[2018-11-24 13:13] LABS: Hemoglobin 7.4 g/dL (13.0-16.5)
[2018-11-24] MEDS: Epoetin Alfa-epbx 40,000 UNIT/ML 30000 UNIT SC (13:34)
[2018-11-24 13:42] VITALS: BP 113/62; PULSE 72; RESP 18; TEMP 36.4; O2SAT 96; BMI 29.6
== END ==
PROVIDERS: Family Provider Family Medicine; PCP Family Medicine; Referring Provider Internal Medicine Nephrology; Visit Provider Internal Medicine Nephrology
DX: N18.3 Chronic kidney disease, stage 3 (moderate) (principal); D63.1 Anemia in chronic kidney disease
CPT/HCPCS: 36415; 85014; 85018; 96372; Q5106

== ENCOUNTER 2018-11-28 14:30 | Outpatient (RCR) | payer MEDICARE, OTHER, SELFPAY ==
[2015-10-31 10:00] VITALS: BMI 34.9
[2018-11-03 00:28] VITALS: BP 158/86; PULSE 107; RESP 16; TEMP 37.4; BMI 29.6
[2018-11-07 11:06] VITALS: BP 133/75; PULSE 86; RESP 18; TEMP 36.4; BMI 29.6
--- NOTE | 2018-11-07 12:34 | PCM.WC.PN ---
(1) Cellulitis and abscess of trunk Status: Acute Current Visit: Yes Code(s): L03.319 - Cellulitis of trunk, unspecified; L02.219 - Cutaneous abscess of trunk, unspecified (2) Nonhealing surgical wound Status: Chronic Current Visit: Yes Qualifiers: Encounter type: subsequent encounter Code(s): T81.89XA - Other complications of procedures, not elsewhere classified, initial encounter (3) Open wound of lower back Status: Chronic Current Visit: Yes Code(s): S31.000A - Unspecified open wound of lower back and pelvis without penetration into retroperitoneum, initial encounter Type of Wound Date of Service: 11/07/18 Chief Complaint: Nonhealing surgical wound of lower back History of Wound: Mr. Marshall is a 73-yo who has been seen here at the wound center for a nonhealing surgical wound of his lower back s/p surgical debridement for an abscess s/p lumbar spine surgery. His original surgery on his lower back was approximately 2016 and he has had multiple complications since that time. He underwent surgical debridement on 03/04/[address] Davila at [facility] in [place] and was discharged with a wound vac for healing by secondary intention with possible muscle flap closure in the future. He followed up with his surgeon on 04/18/17 for further evaluation and recommendations and they plan to close the wound with a muscle flap but he continues to develop infections. He is also being seen by Infectious Disease as needed. CT 02/2018 did not show any abscess. Progress of Wound: Cuong is here for follow-up of his nonhealing surgical wound of his lower back. His wound is showing mild improvement with applications of Theraskin. Wound cultures were done last week and showed pseudomonas, mrsa and anaerobic bacteria. He continues to have very heavy drainage from his wound. He has had 10 applications of Purapply to his lower back wound with mild improvement. Cuong saw the surgeon at [facility] again on August 27, 2018 and he does not think a skin flap would be an option but talked about doing a skin graft from his thigh to the lower back. He has been having increased pain in his back and left leg presumably from nerve impingement. Denies increased drainage, fever or chills. - Physical Exam Vital Signs Temp Pulse Resp BP 97.5 F L 86 18 133/75 H 11/07/18 11:06 11/07/18 11:06 11/07/18 11:06 11/07/18 11:06 General: Alert, Oriented x3, Cooperative, No apparent distress HEENT: Atraumatic, Normocephalic Oral: Moist Mucosa Neck: Supple Extremities: Edema Skin: Ulcer/ Wound Wound Measurements and Assessment ELIZABETH - Nurse 1 - General Ulcer Measurement Start: 11/07/18 11:06 Freq: Status: Active Protocol: Activity Type Activity Date Activity User E-Sign Co-Sign Detail Recorded Client Recorded Date Recorded By Document 11/07/18 11:06 BS [id number] 11/07/18 11:12 BS 11/07/18 11:06 Wound Center Nurse 1 [Ulcer Assessment] #9 Lower Lumbar- Midline -Current Size (cm) - Length 13.5 -Current Size (cm) - Width 4.5 -Current Size (cm) - Depth 0.4 -Total Square Cm 60.75 -Photo Taken No -Classification - Thickness Full Thickness without Exposed Support Structure -Granulation Amt Small (1-33%) -Granulation Quality [place],Red -Slough/Fibrin Yes -Necrotic Tissue Type Adherent Slough -Structure Exposed Fat Layer Exposed -Texture (Uma-wound Skin Appearance) Assessed, Scarring -Moisture (Uma-wound Skin Appearance Assessed, ) Maceration -Color (Uma-wound Skin Appearance) Assessed -Temperature (Uma-wound Skin No Abnormality Appearance) (Pt Warm) -Tenderness on Palpation (Uma-wound No Skin Appearance) -Ulcer Cleansing Rinsed/ Irrigated with Saline -Foul Odor after Cleansing No -Anesthetic Used 4% Lidocaine Solution ELIZABETH - Nurse 2 - General Ulcer CM Notes Start: 11/07/18 11:06 Freq: Status: Active Protocol: Activity Type Activity Date Activity User E-Sign Co-Sign Detail Recorded Client Recorded Date Recorded By Document 11/07/18 12:00 DV [id number] 11/07/18 12:03 DV 11/07/18 12:00 Wound Center Nurse 2 [Procedure/Treatment] -Time 12:00 -Correct Patient Yes -Correct Side, Site, Position Yes -Correct Procedure Yes -Procedure Performed Yes -Type of Procedure Debridement -Clinical Debridement Subcutaneous -Post Debridement Size (cm) - Length 13.3 -Post Debridement Size (cm) - Width 3.8 -Post Debridement Size (cm) - Depth 0.4 -Total Square Cm 50.54 -Wound/Ulcer Outcome Not Healed -Ulcer Cleansing Rinsed/ Irrigated with Saline -Foul Odor after Cleansing No -Bioengineered Tissue No -Bleeding Controlled with Pressure -Offloading No -Treatment Response Procedure Tolerated Well [See Physician Procedure note for Specifics] Pain Scale: 0-10 Numeric [Pain] -Is Patient Pain Free? Yes Psych/Mental Status: Normal Affect, Appropriate Debridement Note Post-Debridement Measurements/Treatment WC - Nurse 2 - General Ulcer CM Notes Start: 11/07/18 11:06 Freq: Status: Active Protocol: Activity Type Activity Date Activity User E-Sign Co-Sign Detail Recorded Client Recorded Date Recorded By Document 11/07/18 12:00 DV [id number] 11/07/18 12:03 DV 11/07/18 12:00 Wound Center Nurse 2 #9 Lower Lumbar- Midline -Time 12:00 -Correct Patient Yes -Correct Side, Site, Position Yes -Correct Procedure Yes -Procedure Performed Yes -Type of Procedure Debridement -Clinical Debridement Subcutaneous -Post Debridement Size (cm) - Length 13.3 -Post Debridement Size (cm) - Width 3.8 -Post Debridement Size (cm) - Depth 0.4 -Total Square Cm 50.54 -Wound/Ulcer Outcome Not Healed -Ulcer Cleansing Rinsed/ Irrigated with Saline -Foul Odor after Cleansing No -Bioengineered Tissue No -Bleeding Controlled with Pressure -Offloading No -Treatment Response Procedure Tolerated Well Pain Scale: 0-10 Numeric Is Patient Pain Free? Yes Wound debrided: Lower lumbar midline Laterality: Not Applicable Type of Debridement: Excisional debridement Anesthesia Used: 4% Lidocaine Solution, 5% Lidocaine Gel Depth: Down to and including healthy tissue, in the subcutaneous layer Percentage of wound debrided: 100 Instrument Used: 5mm curette Tissue Removed: yellow slough, devitalized tissue Severity: Fat Layer Exposed Amount of bleeding with debridement: Moderate Bleeding Controlled with: Compression and gauze, Gel Foam Patient tolerated procedure well Assessment/Plan Active Problems (Last Updated 06/16/18 @ 18:13 by Charisse Couch MD) Cellulitis and abscess of trunk (Acute) Nonhealing surgical wound (Chronic) Open wound of lower back (Chronic) Assessment: chronic surgical wound dehiscence lumbar with complex abscess and recent surgical debridement. malnutrition. other multiple comorbidities. edema bilateral lower extremities. Bleeding site from within wound controlled with combination of silver nitrate and Surgifoam. Bleeding appears to be controlled. venous insufficiency. immunocompromised status. Plan: Evaluated Cuong's wounds today and debrided his lumbar wound. There has been some improvement in the edges of his lumbar wound. He was started on clindamycin and ciprofloxacin for treatment of wound culture results and states that he is not taking them. He is aware of consequences of not taking the antibiotics. Will continue to use Aquacel and KerraMaxCare with changes once daily for heavy amount of drainage of his lumbar wound. Continue increased protein intake. F/U in [address] Wick.
[2018-11-14 11:11] VITALS: BP 107/55; PULSE 97; RESP 16; TEMP 36.2; BMI 29.6
--- NOTE | 2018-11-14 13:32 | PN.PCM_ITS ---
(1) Cellulitis and abscess of trunk Status: Chronic Current Visit: Yes Code(s): L03.319 - Cellulitis of trunk, unspecified; L02.219 - Cutaneous abscess of trunk, unspecified (2) Nonhealing surgical wound Status: Chronic Current Visit: Yes Qualifiers: Encounter type: subsequent encounter Code(s): T81.89XA - Other complications of procedures, not elsewhere classified, initial encounter (3) Open wound of lower back Status: Chronic Current Visit: Yes Code(s): S31.000A - Unspecified open wound of lower back and pelvis without penetration into retroperitoneum, initial encounter Type of Wound Date of Service: 11/14/18 Chief Complaint: Nonhealing surgical wound of lower back History of Wound: Mr. Marshall is a 73-yo who has been seen here at the wound center for a nonhealing surgical wound of his lower back s/p surgical debridement for an abscess s/p lumbar spine surgery. His original surgery on his lower back was approximately 2016 and he has had multiple complications since that time. He underwent surgical debridement on 03/04/[address] Davila at [facility] in [place] and was discharged with a wound vac for healing by secondary intention with possible muscle flap closure in the future. He followed up with his surgeon on 04/18/17 for further evaluation and recommendations and they plan to close the wound with a muscle flap but he continues to develop infections. He is also being seen by Infectious Disease as needed. CT 02/2018 did not show any abscess. Progress of Wound: Cuong is here for follow-up of his nonhealing surgical wound o f his lower back. His wound was showing mild improvement with applications of Theraskin. Wound cultures were done 2 weeks ago and showed pseudomonas, mrsa and anaerobic bacteria. He was unable to tolerate the antibiotics and stopped taking them. There is currently no odor. He continues to have very heavy drainage from his wound. He has had 10 applications of Purapply to his lower back wound with mild improvement. Cuong saw the surgeon at [facility] again on August 27, 2018 and he does not think a skin flap would be an option but talked about doing a skin graft from his thigh to the lower back. He has been having increased pain in his back and left leg presumably from nerve impingement. Denies increased drainage, fever or chills. - Physical Exam Vital Signs Temp Pulse Resp BP 97.1 F L 97 16 107/55 L 11/14/18 11:11 11/14/18 11:11 11/14/18 11:11 11/14/18 11:11 General: Alert, Oriented x3, Cooperative, No apparent distress HEENT: Atraumatic, Normocephalic Oral: Moist Mucosa Neck: Supple Lungs: Clear to auscultation Cardiovascular: Regular rate, Regular Rhythm Skin: Ulcer/ Wound Wound Measurements and Assessment WC - Nurse 1 - General Ulcer Measurement Start: 11/07/18 11:06 Freq: Status: Active Protocol: Activity Type Activity Date Activity User E-Sign Co-Sign Detail Recorded Client Recorded Date Recorded By Document 11/14/18 11:11 [facility] [id number] 11/14/18 11:17 [facility] 11/14/18 11:11 Wound Center Nurse 1 [Ulcer Assessment] #9 Lower Lumbar- Midline -Combined with other wound No -Current Size (cm) - Length 14 -Current Size (cm) - Width 4.4 -Current Size (cm) - Depth 0.4 -Total Square Cm 61.6 -Photo Taken No -Epithelialization None Present -Tunneling No -Undermining/Tunneling No -Circular Undermining No -Exudate Amt Large -Exudate Type Serosanguineous -Wound Margin Thickened & Rolled Under -Granulation Amt Small (1-33%) -Granulation Quality [place] -Slough/Fibrin Yes -Necrosis Amt Large (67-100%) -Necrotic Tissue Type Adherent Slough -Texture (Uma-wound Skin Appearance) Assessed, Scarring -Moisture (Uma-wound Skin Appearance Assessed, ) Maceration,Dry/ Scaly -Color (Uma-wound Skin Appearance) Assessed,Palor -Temperature (Uma-wound Skin No Abnormality Appearance) (Pt Warm) -Tenderness on Palpation (Uma-wound No Skin Appearance) -Ulcer Cleansing Wound Cleanser -Foul Odor after Cleansing No -Anesthetic Used 4% Lidocaine Solution WC - Nurse 2 - General Ulcer CM Notes Start: 11/07/18 11:06 Freq: Status: Active Protocol: Activity Type Activity Date Activity User E-Sign Co-Sign Detail Recorded Client Recorded Date Recorded By Document 11/14/18 11:41 DV [id number] 11/14/18 11:56 DV 11/14/18 11:41 Wound Center Nurse 2 [Procedure/Treatment] -Time 11:50 -Correct Patient Yes -Correct Side, Site, Position Yes -Correct Procedure Yes -Procedure Performed Yes -Type of Procedure Debridement -Clinical Debridement Subcutaneous -Post Debridement Size (cm) - Length 13.2 -Post Debridement Size (cm) - Width 4.3 -Post Debridement Size (cm) - Depth 0.4 -Total Square Cm 56.76 -Wound/Ulcer Outcome Not Healed -Ulcer Cleansing Rinsed/ Irrigated with Saline -Foul Odor after Cleansing No -Bioengineered Tissue No -Bleeding Controlled with Pressure -Offloading No -Treatment Response Procedure Tolerated Well [See Physician Procedure note for Specifics] Pain Scale: 0-10 Numeric [Pain] -Is Patient Pain Free? Yes Psych/Mental Status: Normal Affect, Appropriate Debridement Note Post-Debridement Measurements/Treatment WC - Nurse 2 - General Ulcer CM Notes Start: 11/07/18 11:06 Freq: Status: Active Protocol: Activity Type Activity Date Activity User E-Sign Co-Sign Detail Recorded Client Recorded Date Recorded By Document 11/07/18 12:00 DV [id number] 11/07/18 12:03 DV Document 11/14/18 11:41 DV [id number] 11/14/18 11:56 DV 11/07/18 11/14/18 12:00 11:41 Wound Center Nurse 2 #9 Lower Lumbar- Midline -Time 12:00 11:50 -Correct Patient Yes Yes -Correct Side, Site, Position Yes Yes -Correct Procedure Yes Yes -Procedure Performed Yes Yes -Type of Procedure Debridement Debridement -Clinical Debridement Subcutaneous Subcutaneous -Post Debridement Size (cm) - Length 13.3 13.2 -Post Debridement Size (cm) - Width 3.8 4.3 -Post Debridement Size (cm) - Depth 0.4 0.4 -Total Square Cm 50.54 56.76 -Wound/Ulcer Outcome Not Healed Not Healed -Ulcer Cleansing Rinsed/ Rinsed/ Irrigated with Irrigated with Saline Saline -Foul Odor after Cleansing No No -Bioengineered Tissue No No -Bleeding Controlled with Pressure Pressure -Offloading No No -Treatment Response Procedure Procedure Tolerated Well Tolerated Well Pain Scale: 0-10 Numeric Is Patient Pain Free? Yes Yes Wound debrided: lower lumbar midline Laterality: Not Applicable Type of Debridement: Excisional debridement Anesthesia Used: 4% Lidocaine Solution, 5% Lidocaine Gel Depth: Down to and including healthy tissue, in the subcutaneous layer Percentage of wound debrided: 100 Instrument Used: 5mm curette Tissue Removed: yellow slough, devitalized tissue Severity: Fat Layer Exposed Amount of bleeding with debridement: Mild Bleeding Controlled with: Compression and gauze Patient tolerated procedure well Assessment/Plan Active Problems (Last Updated 11/12/18 @ 19:05 by Paloma Jennings) Cardiomyopathy in diseases classified elsewhere (Chronic) Essential (primary) hypertension (Chronic) Assessment: chronic surgical wound dehiscence lumbar with complex abscess and recent surgical debridement. malnutrition. other multiple comorbidities. edema bilateral lower extremities. Bleeding site from within wound controlled with combination of silver nitrate and Surgifoam. Bleeding appears to be controlled. venous insufficiency. immunocompromised status. Plan: Evaluated Cuong's wounds today and debrided his lumbar wound. There has been some improvement in the edges of his lumbar wound. Will continue to use Aquacel and KerraMaxCare with changes once daily for heavy amount of drainage of his lumbar wound. Continue increased protein intake. F/U in [address] Wick.
[2018-11-21 11:03] VITALS: BP 127/71; PULSE 94; RESP 16; TEMP 36.3; BMI 29.6
--- NOTE | 2018-11-21 13:36 | PCM.WC.PN ---
(1) Cellulitis and abscess of trunk Status: Chronic Current Visit: Yes Code(s): L03.319 - Cellulitis of trunk, unspecified; L02.219 - Cutaneous abscess of trunk, unspecified (2) Nonhealing surgical wound Status: Chronic Current Visit: Yes Qualifiers: Encounter type: subsequent encounter Code(s): T81.89XA - Other complications of procedures, not elsewhere classified, initial encounter (3) Open wound of lower back Status: Chronic Current Visit: Yes Code(s): S31.000A - Unspecified open wound of lower back and pelvis without penetration into retroperitoneum, initial encounter Type of Wound Date of Service: 11/21/18 Chief Complaint: Nonhealing surgical wound of lower back History of Wound: Mr. Marshall is a 73-yo who has been seen here at the wound center for a nonhealing surgical wound of his lower back s/p surgical debridement for an abscess s/p lumbar spine surgery. His original surgery on his lower back was approximately 2016 and he has had multiple complications since that time. He underwent surgical debridement on 03/04/[address] Davila at [facility] in [place] and was discharged with a wound vac for healing by secondary intention with possible muscle flap closure in the future. He followed up with his surgeon on 04/18/17 for further evaluation and recommendations and they plan to close the wound with a muscle flap but he continues to develop infections. He is also being seen by Infectious Disease as needed. CT 02/2018 did not show any abscess. Progress of Wound: Cuong is here for follow-up of his nonhealing surgical wound of his lower back. His wound was showing mild improvement with applications of Theraskin but it kept getting infected. He continues to have very heavy drainage from his wound. He has had 10 applications of Purapply to his lower back wound with mild improvement. Cuong saw the surgeon at [facility] [place] again on August 27, 2018 and he does not think a skin flap would be an option but talked about doing a skin graft from his thigh to the lower back. He has been having increased pain in his back and left leg presumably from nerve impingement. Denies increased drainage, fever or chills. - Physical Exam Vital Signs Temp Pulse Resp BP 97.3 F L 94 16 127/71 H 11/21/18 11:03 11/21/18 11:03 11/21/18 11:03 11/21/18 11:03 General: Alert, Oriented x3, Cooperative, No apparent distress HEENT: Atraumatic, Normocephalic Oral: Moist Mucosa Neck: Supple Lungs: Clear to auscultation Cardiovascular: Regular rate, Regular Rhythm Abdomen: Soft, Non Tender, Obese Extremities: Edema Skin: Ulcer/ Wound Wound Measurements and Assessment WC - Nurse 1 - General Ulcer Measurement Start: 11/07/18 11:06 Freq: Status: Active Protocol: Activity Type Activity Date Activity User E-Sign Co-Sign Detail Recorded Client Recorded Date Recorded By Document 11/21/18 11:03 CS [id number] 11/21/18 11:08 CS 11/21/18 11:03 Wound Center Nurse 1 [Ulcer Assessment] #9 Lower Lumbar- Midline -Combined with other wound No -Current Size (cm) - Length 14 -Current Size (cm) - Width 4.2 -Current Size (cm) - Depth 0.4 -Total Square Cm 58.8 -Photo Taken No -Epithelialization None Present -Tunneling No -Undermining/Tunneling No -Circular Undermining No -Exudate Amt Large -Exudate Type Yellow/Green -Wound Margin Thickened & Rolled Under -Granulation Amt Medium (34-66%) -Granulation Quality [place] -Slough/Fibrin Yes -Necrosis Amt None Present (0 %) -Necrotic Tissue Type Adherent Slough -Structure Exposed None/Limited to Skin Breakdown -Texture (Uma-wound Skin Appearance) Scarring -Moisture (Uma-wound Skin Appearance No Abnormality, ) Assessed -Color (Uma-wound Skin Appearance) No Abnormality, Assessed -Temperature (Uma-wound Skin No Abnormality Appearance) (Pt Warm) -Tenderness on Palpation (Uma-wound Yes Skin Appearance) -Ulcer Cleansing Rinsed/ Irrigated with Saline -Foul Odor after Cleansing Yes -Anesthetic Used 4% Lidocaine Solution [Edema Assessment] -Lower Limb Edema Present NA WC - Nurse 2 - General Ulcer CM Notes Start: 11/07/18 11:06 Freq: Status: Active Protocol: Activity Type Activity Date Activity User E-Sign Co-Sign Detail Recorded Client Recorded Date Recorded By Document 11/21/18 12:27 DV [id number] 11/21/18 12:42 DV 11/21/18 12:27 Wound Center Nurse 2 [Procedure/Treatment] # 11 Left Heel -Time 12:39 -Correct Patient Yes -Correct Side, Site, Position Yes -Correct Procedure Yes -Procedure Performed Yes -Type of Procedure Debridement -Clinical Debridement Subcutaneous -Post Debridement Size (cm) - Length 0.7 -Post Debridement Size (cm) - Width 0.3 -Post Debridement Size (cm) - Depth 0.2 -Total Square Cm 0.21 -Wound/Ulcer Outcome Not Healed -Ulcer Cleansing Rinsed/ Irrigated with Saline -Foul Odor after Cleansing No -Bioengineered Tissue No -Bleeding Controlled with Pressure -Offloading No -Treatment Response Procedure Tolerated Well #9 Lower Lumbar- Midline -Time 12:27 -Correct Patient Yes -Correct Side, Site, Position Yes -Correct Procedure Yes -Procedure Performed Yes -Type of Procedure Debridement -Clinical Debridement Subcutaneous -Post Debridement Size (cm) - Length 12.8 -Post Debridement Size (cm) - Width 3.7 -Post Debridement Size (cm) - Depth 0.4 -Total Square Cm 47.36 -Wound/Ulcer Outcome Not Healed -Ulcer Cleansing Rinsed/ Irrigated with Saline -Foul Odor after Cleansing No -Bioengineered Tissue No -Bleeding Controlled with Pressure, SURGIFOAM -Offloading No -Treatment Response Procedure Tolerated Well [See Physician Procedure note for Specifics] Pain Scale: 0-10 Numeric [Pain] -Is Patient Pain Free? Yes Psych/Mental Status: Normal Affect, Appropriate Debridement Note Post-Debridement Measurements/Treatment WC - Nurse 2 - General Ulcer CM Notes Start: 11/07/18 11:06 Freq: Status: Active Protocol: Activity Type Activity Date Activity User E-Sign Co-Sign Detail Recorded Client Recorded Date Recorded By Document 11/07/18 12:00 DV [id number] 11/07/18 12:03 DV Document 11/14/18 11:41 DV [id number] 11/14/18 11:56 DV Document 11/21/18 12:27 DV [id number] 11/21/18 12:42 DV 11/07/18 11/14/18 11/21/18 12:00 11:41 12:27 Wound Center Nurse 2 # 11 Left Heel -Time 12:39 -Correct Patient Yes -Correct Side, Site, Position Yes -Correct Procedure Yes -Procedure Performed Yes -Type of Procedure Debridement -Clinical Debridement Subcutaneous -Post Debridement Size (cm) - Length 0.7 -Post Debridement Size (cm) - Width 0.3 -Post Debridement Size (cm) - Depth 0.2 -Total Square Cm 0.21 -Wound/Ulcer Outcome Not Healed -Ulcer Cleansing Rinsed/ Irrigated with Saline -Foul Odor after Cleansing No -Bioengineered Tissue No -Bleeding Controlled with Pressure -Offloading No -Treatment Response Procedure Tolerated Well #9 Lower Lumbar- Midline -Time 12:00 11:50 12:27 -Correct Patient Yes Yes Yes -Correct Side, Site, Position Yes Yes Yes -Correct Procedure Yes Yes Yes -Procedure Performed Yes Yes Yes -Type of Procedure Debridement Debridement Debridement -Clinical Debridement Subcutaneous Subcutaneous Subcutaneous -Post Debridement Size (cm) - Length 13.3 13.2 12.8 -Post Debridement Size (cm) - Width 3.8 4.3 3.7 -Post Debridement Size (cm) - Depth 0.4 0.4 0.4 -Total Square Cm 50.54 56.76 47.36 -Wound/Ulcer Outcome Not Healed Not Healed Not Healed -Ulcer Cleansing Rinsed/ Rinsed/ Rinsed/ Irrigated with Irrigated with Irrigated with Saline Saline Saline -Foul Odor after Cleansing No No No -Bioengineered Tissue No No No -Bleeding Controlled with Pressure Pressure Pressure, SURGIFOAM -Offloading No No No -Treatment Response Procedure Procedure Procedure Tolerated Well Tolerated Well Tolerated Well Pain Scale: 0-10 Numeric Is Patient Pain Free? Yes Yes Yes Wound debrided: left heel Laterality: Left Type of Debridement: Excisional debridement Anesthesia Used: 4% Lidocaine Solution, 5% Lidocaine Gel Depth: Down to and including healthy tissue, in the subcutaneous layer Percentage of wound debrided: 100 Instrument Used: 5mm curette Tissue Removed: yellow slough, devitalized tissue Severity: Fat Layer Exposed Amount of bleeding with debridement: Mild Bleeding Controlled with: Compression and gauze Patient tolerated procedure well - Additional Wound Wound debrided: lower lumbar midline Laterality: Not Applicable Type of Debridement: Excisional debridement Anesthesia Used: 4% Lidocaine Solution, 5% Lidocaine Gel Depth: Down to and including healthy tissue, in the subcutaneous layer Percentage of wound debrided: 100 Instrument Used: 5mm curette Tissue Removed: yellow slough, devitalized tissue Severity: Fat Layer Exposed Amount of bleeding with debridement: Mild Bleeding Controlled with: Compression and gauze Patient tolerated procedure: Patient tolerated procedure well Assessment/Plan Assessment: chronic surgical wound dehiscence lumbar with complex abscess and recent surgical debridement. malnutrition. other multiple comorbidities. edema bilateral lower extremities. Bleeding site from within wound controlled with combination of silver nitrate and Surgifoam. Bleeding appears to be controlled. venous insufficiency. immunocompromised status. Plan: Evaluated Cuong's wounds today and debrided his lumbar wound. There has been some improvement in the edges of his lumbar wound. Will continue to use Aquacel and KerraMaxCare with changes once daily for heavy amount of drainage of his lumbar wound. Continue increased protein intake. F/U in [address] Wick.
== END 2018-12-03 23:59 ==
LOC: WC 14:30
PROVIDERS: Family Provider Family Medicine; PCP Family Medicine; Referring Provider Family Medicine; Visit Provider Family Medicine
DX: T81.31XA Disruption of external operation (surgical) wound, not elsewhere classified, initial encounter (principal); L03.312 Cellulitis of back [any part except buttock and flank]; Y83.8 Other surgical procedures as the cause of abnormal reaction of the patient, or of later complication, without mention of misadventure at the time of the procedure; I87.2 Venous insufficiency (chronic) (peripheral); L97.422 Non-pressure chronic ulcer of left heel and midfoot with fat layer exposed
CPT/HCPCS: 11042; 11045

== ENCOUNTER → 2018-12-09 13:27 | Outpatient (CLI) | payer MEDICARE, OTHER, SELFPAY ==
[2015-10-31 10:00] VITALS: BMI 34.9
[2018-11-21 11:03] VITALS: BMI 29.6
[2018-12-05 12:43] VITALS: BMI 29.6
[2018-12-09 13:44] VITALS: BP 97/52; PULSE 76; RESP 16; TEMP 37.2; O2SAT 93
[2018-12-09 13:56] LABS: Absolute Lymphocyte Count 1.31 X10^3/uL (0.83-4.51); Absolute Neutrophil Count 3.9 X10^3/uL (2.0-7.7); Basophil# 0.04 X10^3/uL; Basophil% 0.6 % (0-1); Eosinophil# 0.27 X10^3/uL; Hematocrit 26.4 % (40-54); Hemoglobin 8.6 g/dL (13.0-16.5); Lymphocyte # 1.31 X10^3/ul (4.0); Lymphocyte % 19.4 % (19-41); Mean Corp Hgb Conc 32.6 g/dL (32-36); Mean Corpuscular Hgb 37.7 pg (27.0-32.0); Mean Corpuscular Volume 115.8 fL (80-94); Mean Platelet Vol. 9.7 fl (6.2-12.0); Monocyte% 17.7 % (0-10); NRBC Flagged by Analyzer 0 % (0-5); Neutrophil # 3.93 X10^3/uL (2.7-7.7); POSITIVE MORPHOLOGY YES; Platelet Count 225 K/mm3 (150-450); RBC Distribution Width CV 16.9 % (11.6-14.6); RBC Distribution Width SD 72.5 fl (35.1-43.9); Red Blood Count 2.28 M/mm3 (4.6-6.2); White Blood Count 6.8 K/mm3 (4.4-11.0)
[2018-12-09 13:57] LABS: Differential Indicated SCAN CRITERIA MET
[2018-12-09 14:10] LABS: Albumin, Serum 1.9 g/dL (3.2-5.0); BUN 19 mg/dL (7-18); BUN/Creat Ratio 13.4 RATIO (10-20); Chloride 105 mmol/L (98-107); Creatinine, Serum 1.42 mg/dL (0.70-1.30); EST Glomerular Filtration Rate 52 mL/min (>60); Est Glom Filt Rate - Afr Amer 63 mL/min (>60); Glucose 97 mg/dL (74-106); Phosphorus 3.2 mg/dL (2.5-4.9); Potassium 4.3 mmol/L (3.5-5.1); Sodium Level 138 mmol/L (136-145)
[2018-12-09 14:16] LABS: Anisocytosis 1+; Platelet Estimate ADEQUATE (ADEQ)
[2018-12-09 14:17] LABS: Red Cell Morphology N CHROM NORMAL (NORM C&C)
[2018-12-09] MEDS: Epoetin Alfa-epbx 40,000 UNIT/ML 32000 UNIT SC (14:19)
== END ==
PROVIDERS: Family Provider Family Medicine; PCP Family Medicine; Referring Provider Internal Medicine Nephrology; Visit Provider Internal Medicine Nephrology
DX: N18.3 Chronic kidney disease, stage 3 (moderate) (principal); D63.1 Anemia in chronic kidney disease
CPT/HCPCS: 36415; 80069; 85025; 96372; Q5106

== ENCOUNTER → 2018-12-22 10:55 | Outpatient (CLI) | payer MEDICARE, OTHER, SELFPAY ==
[2015-10-31 10:00] VITALS: BMI 34.9
[2018-12-05 12:43] VITALS: BMI 29.6
[2018-12-19 08:35] VITALS: BMI 29.6
[2018-12-22 11:18] LABS: Hematocrit 24.9 % (40-54)
[2018-12-22 11:34] VITALS: BP 102/64; PULSE 90; RESP 16; TEMP 36.9; BMI 29.6
[2018-12-22] MEDS: Epoetin Alfa-epbx 40,000 UNIT/ML 32000 UNIT SC (12:09)
[2018-12-22 19:16] LABS: Xtra Tube EP Lab EXTRA TUBE
== END ==
PROVIDERS: Family Provider Family Medicine; PCP Family Medicine; Referring Provider Internal Medicine Nephrology; Visit Provider Internal Medicine Nephrology
DX: N18.3 Chronic kidney disease, stage 3 (moderate) (principal); D63.1 Anemia in chronic kidney disease
CPT/HCPCS: 36415; 85014; 85018; 96372; Q5106

== ENCOUNTER 2019-01-02 12:30 | Outpatient (RCR) | payer MEDICARE, OTHER, SELFPAY ==
[2015-10-31 10:00] VITALS: BMI 34.9
[2018-11-24 13:42] VITALS: BMI 29.6
[2018-12-04 00:34] VITALS: BP 127/71; PULSE 94; RESP 16; TEMP 36.3
[2018-12-05 12:43] VITALS: BP 110/61; PULSE 73; TEMP 36.6; BMI 29.6
--- NOTE | 2018-12-05 18:23 | PN.PCM_ITS ---
(1) Wound, surgical, nonhealing Status: Chronic Current Visit: Yes Qualifiers: Encounter type: subsequent encounter Qualified Code(s): T81.89XD - Other complications of procedures, not elsewhere classified, subsequent encounter Code(s): T81.89XA - Other complications of procedures, not elsewhere classified, initial encounter (2) Status post lumbar laminectomy Status: Chronic Current Visit: Yes Code(s): Z98.890 - Other specified postprocedural states (3) Cardiomyopathy in diseases classified elsewhere Status: Chronic Current Visit: Yes Code(s): I43 - Cardiomyopathy in diseases classified elsewhere (4) Paroxysmal atrial fibrillation Status: Chronic Current Visit: Yes Code(s): I48.0 - Paroxysmal atrial fibrillation (5) Hyperlipidemia Status: Chronic Current Visit: Yes Qualifiers: Hyperlipidemia type: unspecified Qualified Code(s): E78.5 - Hyperlipidemia, unspecified Code(s): E78.5 - Hyperlipidemia, unspecified Type of Wound Date of Service: 12/05/18 Chief Complaint: Nonhealing surgical wound of lower back History of Wound: Mr. Marshall is a 73-yo who [facility] nonhealing surgical wound of his lower back s/p surgical debridement for an abscess s/p lumbar spine surgery. His original surgery on his lower back was approximately 2016 and he has had multiple complications since that time. He underwent surgical debridement on 03/04/[address] Davila at [facility] in [place] and was discharged with a wound vac for healing by secondary intention with possible muscle flap closure in the future. He followed up with his surgeon on 04/18/17 for further evaluation and recommendations and they plan to close the wound with a muscle flap but he continues to develop infections. He is also being seen by Infectious Disease as needed. CT 02/2018 did not show any abscess. Progress of Wound: Cuong is here for follow-up of his nonhealing surgical wound of his lower back. His wound was showing mild improvement with applications of Theraskin but it kept getting infected, so we discontinued this treatment. He continues to have very heavy drainage from his wound. He has had 10 applications of Purapply to his lower back wound with mild improvement which were completed 03/21/2018. Cuong saw the surgeon at [facility] again on August 27, 2018 and he does not think a skin flap would be an option but talked about doing a skin graft from his thigh to the lower back. He has been having increased pain in his back and left leg presumably from nerve impingement. Denies increased drainage, fever or chills. - Physical Exam Vital Signs Temp Pulse Resp BP 98 F 73 16 110/61 12/05/18 12:43 12/05/18 12:43 12/04/18 00:34 12/05/18 12:43 General: Alert, Oriented x3, Cooperative, No apparent distress HEENT: Atraumatic, Normocephalic Oral: Moist Mucosa Extremities: Edema Skin: Ulcer/ Wound Wound Measurements and Assessment WC - Nurse 1 - General Ulcer Measurement Start: 12/05/18 12:38 Freq: Status: Active Protocol: Activity Type Activity Date Activity User E-Sign Co-Sign Detail Recorded Client Recorded Date Recorded By Document 12/05/18 12:43 DV [id number] 12/05/18 13:06 DV 12/05/18 12:43 Wound Center Nurse 1 [Ulcer Assessment] #9 Lower Lumbar- Midline -Combined with other wound No -Current Size (cm) - Length 14 -Current Size (cm) - Width 4.4 -Current Size (cm) - Depth 0.8 -Total Square Cm 61.6 -Photo Taken No -Tunneling No -Undermining/Tunneling No -Circular Undermining No -Exudate Amt Large -Exudate Type Purulent -Wound Margin Fibrotic Scar, Thickened Scar -Granulation Amt Medium (34-66%) -Granulation Quality [place] -Slough/Fibrin Yes -Structure Exposed None/Limited to Skin Breakdown -Texture (Uma-wound Skin Appearance) Assessed, Localized Edema -Moisture (Uma-wound Skin Appearance No Abnormality, ) Assessed -Color (Uma-wound Skin Appearance) Assessed,Palor -Temperature (Uma-wound Skin No Abnormality Appearance) (Pt Warm) -Tenderness on Palpation (Uma-wound No Skin Appearance) -Foul Odor after Cleansing No -Anesthetic Used 4% Lidocaine Solution WC - Nurse 2 - General Ulcer CM Notes Start: 12/05/18 12:38 Freq: Status: Active Protocol: Activity Type Activity Date Activity User E-Sign Co-Sign Detail Recorded Client Recorded Date Recorded By Document 12/05/18 13:13 DV [id number] 12/05/18 13:31 DV 12/05/18 13:13 Wound Center Nurse 2 [Procedure/Treatment] # 11 Left Heel -Time 13:25 -Correct Patient Yes -Correct Side, Site, Position Yes -Correct Procedure No -Procedure Performed No #9 Lower Lumbar- Midline -Time 13:25 -Correct Patient Yes -Correct Side, Site, Position Yes -Correct Procedure Yes -Procedure Performed Yes -Type of Procedure Debridement -Clinical Debridement Subcutaneous -Post Debridement Size (cm) - Length 13.7 -Post Debridement Size (cm) - Width 3.7 -Post Debridement Size (cm) - Depth 0.4 -Total Square Cm 50.69 -Wound/Ulcer Outcome Not Healed -Bleeding Controlled with Pressure -Offloading No -Treatment Response Procedure Tolerated Well [See Physician Procedure note for Specifics] Pain Scale: 0-10 Numeric [Pain] -Is Patient Pain Free? Yes Psych/Mental Status: Normal Affect, Appropriate Debridement Note Post-Debridement Measurements/Treatment WC - Nurse 2 - General Ulcer CM Notes Start: 12/05/18 12:38 Freq: Status: Active Protocol: Activity Type Activity Date Activity User E-Sign Co-Sign Detail Recorded Client Recorded Date Recorded By Document 12/05/18 13:13 DV [id number] 12/05/18 13:31 DV 12/05/18 13:13 Wound Center Nurse 2 # 11 Left Heel -Time 13:25 -Correct Patient Yes -Correct Side, Site, Position Yes -Correct Procedure No -Procedure Performed No #9 Lower Lumbar- Midline -Time 13:25 -Correct Patient Yes -Correct Side, Site, Position Yes -Correct Procedure Yes -Procedure Performed Yes -Type of Procedure Debridement -Clinical Debridement Subcutaneous -Post Debridement Size (cm) - Length 13.7 -Post Debridement Size (cm) - Width 3.7 -Post Debridement Size (cm) - Depth 0.4 -Total Square Cm 50.69 -Wound/Ulcer Outcome Not Healed -Bleeding Controlled with Pressure -Offloading No -Treatment Response Procedure Tolerated Well Pain Scale: 0-10 Numeric Is Patient Pain Free? Yes Wound debrided: left heel Laterality: Left No debridement was completed today - pt. refused - Additional Wound Wound debrided: lower lumbar midline Laterality: Not Applicable Type of Debridement: Excisional debridement Anesthesia Used: 4% Lidocaine Solution Depth: Down to and including healthy tissue, in the subcutaneous layer, to muscle Percentage of wound debrided: 100 Instrument Used: 5mm curette Tissue Removed: yellow slough, devitalized tissue Severity: Fat Layer Exposed Amount of bleeding with debridement: Moderate Bleeding Controlled with: Compression and gauze, Gel Foam Patient tolerated procedure: Patient tolerated procedure well Assessment/Plan Active Problems (Last Updated 11/12/18 @ 19:05 by Paloma Jennings) Wound, surgical, nonhealing (Chronic) Status post lumbar laminectomy (Chronic) Cardiomyopathy in diseases classified elsewhere (Chronic) Paroxysmal atrial fibrillation (Chronic) Hyperlipidemia (Chronic) Assessment: chronic surgical wound dehiscence lumbar with complex abscess and recent surgical debridement. malnutrition. other multiple comorbidities. edema bilateral lower extremities. Bleeding site from within wound controlled with combination of silver nitrate and Surgifoam. Bleeding appears to be controlled. venous insufficiency. immunocompromised status. Plan: Evaluated Cuong's wounds today and debrided his lumbar wound. There has been some improvement in the edges of his lumbar wound. Wound culture taken today to evaluate for infection to be able to clear him for injection by pain management for his back/hip pain. Will continue to use Aquacel and KerraMaxCare with changes once daily for heavy amount of drainage of his lumbar wound. Continue increased protein intake. F/U in [address] Wick.
[2018-12-12 12:37] VITALS: BP 127/65; PULSE 86; RESP 20; TEMP 36; BMI 29.6
--- NOTE | 2018-12-12 17:34 | PN.PCM_ITS ---
(1) Wound, surgical, nonhealing Status: Chronic Current Visit: Yes Qualifiers: Encounter type: subsequent encounter Qualified Code(s): T81.89XD - Other complications of procedures, not elsewhere classified, subsequent encounter Code(s): T81.89XA - Other complications of procedures, not elsewhere classified, initial encounter (2) Status post lumbar laminectomy Status: Chronic Current Visit: Yes Code(s): Z98.890 - Other specified postprocedural states (3) Cardiomyopathy in diseases classified elsewhere Status: Chronic Current Visit: Yes Code(s): I43 - Cardiomyopathy in diseases classified elsewhere (4) Paroxysmal atrial fibrillation Status: Chronic Current Visit: Yes Code(s): I48.0 - Paroxysmal atrial fibrillation (5) Hyperlipidemia Status: Chronic Current Visit: Yes Qualifiers: Hyperlipidemia type: unspecified Qualified Code(s): E78.5 - Hyperlipidemia, unspecified Code(s): E78.5 - Hyperlipidemia, unspecified Type of Wound Date of Service: 12/12/18 Chief Complaint: Nonhealing surgical wound of lower back History of Wound: Mr. Marshall is a 73-yo who has been seen here at the wound ce [facility] for a nonhealing surgical wound of his lower back s/p surgical debridement for an abscess s/p lumbar spine surgery. His original surgery on his lower back was approximately 2016 and he has had multiple complications since that time. He underwent surgical debridement on 03/04/[address] Davila at [facility] in [place] and was discharged with a wound vac for healing by secondary intention with possible muscle flap closure in the future. He followed up with his surgeon on 04/18/17 for further evaluation and recommendations and they plan to close the wound with a muscle flap but he continues to develop infections. He is also being seen by Infectious Disease as needed. CT 02/2018 did not show any abscess. Progress of Wound: Cuong is here for follow-up of his nonhealing surgical wound of his lower back. His wound was showing mild improvement with applications of Theraskin but it kept getting infected, so we discontinued this treatment. He continues to have very heavy drainage from his wound. He has had 10 applications of Purapply to his lower back wound with mild improvement which were completed 03/21/2018. Cuong saw the surgeon at [facility] again on August 27, 2018 and he does not think a skin flap would be an option but talked about doing a skin graft from his thigh to the lower back. He has been having increased pain in his back and left leg presumably from nerve impingement. Denies increased drainage, fever or chills. - Physical Exam Vital Signs Temp Pulse Resp BP 96.8 F L 86 20 H 127/65 H 12/12/18 12:37 12/12/18 12:37 12/12/18 12:37 12/12/18 12:37 General: Alert, Oriented x3, Cooperative, No apparent distress HEENT: Atraumatic, Normocephalic Oral: Moist Mucosa Lungs: Clear to auscultation Extremities: Edema Skin: Ulcer/ Wound Wound Measurements and Assessment WC - Nurse 1 - General Ulcer Measurement Start: 12/05/18 12:38 Freq: Status: Active Protocol: Activity Type Activity Date Activity User E-Sign Co-Sign Detail Recorded Client Recorded Date Recorded By Document 12/12/18 12:37 DL [id number] 12/12/18 12:45 DL 12/12/18 12:37 Wound Center Nurse 1 [Ulcer Assessment] #9 Lower Lumbar- Midline -Current Size (cm) - Length 13.5 -Current Size (cm) - Width 4.2 -Current Size (cm) - Depth 0.4 -Total Square Cm 56.70 -Photo Taken No -Exudate Amt Large -Exudate Type Yellow/Green -Wound Margin Thickened -Granulation Amt Small (1-33%) -Granulation Quality [place] -Necrosis Amt Large (67-100%) -Necrotic Tissue Type Adherent Slough -Structure Exposed N/A -Texture (Uma-wound Skin Appearance) Scarring -Moisture (Uma-wound Skin Appearance No Abnormality ) -Color (Uma-wound Skin Appearance) Rubor -Temperature (Uma-wound Skin No Abnormality Appearance) (Pt Warm) -Tenderness on Palpation (Uma-wound No Skin Appearance) -Ulcer Cleansing Wound Cleanser -Foul Odor after Cleansing No -Anesthetic Used 4% Lidocaine Solution - Nurse 2 - General Ulcer CM Notes Start: 12/05/18 12:38 Freq: Status: Active Protocol: Activity Type Activity Date Activity User E-Sign Co-Sign Detail Recorded Client Recorded Date Recorded By Document 12/12/18 13:19 DV [id number] 12/12/18 13:31 DV 12/12/18 13:19 Wound Center Nurse 2 [Procedure/Treatment] -Time 13:23 -Correct Patient Yes -Correct Side, Site, Position Yes -Correct Procedure Yes -Procedure Performed Yes -Type of Procedure Debridement -Clinical Debridement Subcutaneous -Post Debridement Size (cm) - Length 13.0 -Post Debridement Size (cm) - Width 3.7 -Post Debridement Size (cm) - Depth 0.1 -Total Square Cm 48.10 -Wound/Ulcer Outcome Not Healed -Ulcer Cleansing Rinsed/ Irrigated with Saline -Foul Odor after Cleansing No -Bioengineered Tissue No -Bleeding Controlled with Pressure -Treatment Response Procedure Tolerated Well [See Physician Procedure note for Specifics] Pain Scale: 0-10 Numeric [Pain] -Is Patient Pain Free? Yes Psych/Mental Status: Normal Affect, Appropriate Debridement Note Post-Debridement Measurements/Treatment WC - Nurse 2 - General Ulcer CM Notes Start: 12/05/18 12:38 Freq: Status: Active Protocol: Activity Type Activity Date Activity User E-Sign Co-Sign Detail Recorded Client Recorded Date Recorded By Document 12/05/18 13:13 DV [id number] 12/05/18 13:31 DV Document 12/12/18 13:19 DV [id number] 12/12/18 13:31 DV 12/05/18 12/12/18 13:13 13:19 Wound Center Nurse 2 # 11 Left Heel -Time 13:25 -Correct Patient Yes -Correct Side, Site, Position Yes -Correct Procedure No -Procedure Performed No #9 Lower Lumbar- Midline -Time 13:25 13:23 -Correct Patient Yes Yes -Correct Side, Site, Position Yes Yes -Correct Procedure Yes Yes -Procedure Performed Yes Yes -Type of Procedure Debridement Debridement -Clinical Debridement Subcutaneous Subcutaneous -Post Debridement Size (cm) - Length 13.7 13.0 -Post Debridement Size (cm) - Width 3.7 3.7 -Post Debridement Size (cm) - Depth 0.4 0.1 -Total Square Cm 50.69 48.10 -Wound/Ulcer Outcome Not Healed Not Healed -Ulcer Cleansing Rinsed/ Irrigated with Saline -Foul Odor after Cleansing No -Bioengineered Tissue No -Bleeding Controlled with Pressure Pressure -Offloading No -Treatment Response Procedure Procedure Tolerated Well Tolerated Well Pain Scale: 0-10 Numeric Is Patient Pain Free? Yes Yes Wound debrided: lower lumbar midline Laterality: Not Applicable Type of Debridement: Excisional debridement Anesthesia Used: 4% Lidocaine Solution Depth: Down to and including healthy tissue, in the subcutaneous layer Percentage of wound debrided: 100 Instrument Used: 7mm curette Tissue Removed: yellow slough, devitalized tissue Severity: Fat Layer Exposed Amount of bleeding with debridement: Mild Bleeding Controlled with: Compression and gauze Patient tolerated procedure well Assessment/Plan Active Problems (Last Updated 11/12/18 @ 19:05 by Paloma Jennings) Wound, surgical, nonhealing (Chronic) Status post lumbar laminectomy (Chronic) Cardiomyopathy in diseases classified elsewhere (Chronic) Paroxysmal atrial fibrillation (Chronic) Hyperlipidemia (Chronic) Assessment: chronic surgical wound dehiscence lumbar with complex abscess and recent surgical debridement. malnutrition. other multiple comorbidities. edema bilateral lower extremities. Bleeding site from within wound controlled with combination of silver nitrate and Surgifoam. Bleeding appears to be controlled. venous insufficiency. immunocompromised status. Plan: Evaluated Cuong's wounds today and debrided his lumbar wound. There has been some improvement in the edges of his lumbar wound. Wound culture was positive for Pseudomonas and he has started on ciprofloxacin. Will try using acetic acid wet to dry dressing of gauze and then KerraMaxCare with changes once daily for heavy amount of drainage of his lumbar wound. Continue increased protein intake. F/U in [address] Wick.
[2018-12-19 08:35] VITALS: BP 138/79; PULSE 89; RESP 16; TEMP 36.4; BMI 29.6
--- NOTE | 2018-12-19 12:05 | PCM.WC.PN ---
(1) Wound, surgical, nonhealing Status: Chronic Current Visit: Yes Qualifiers: Encounter type: subsequent encounter Qualified Code(s): T81.89XD - Other complications of procedures, not elsewhere classified, subsequent encounter Code(s): T81.89XA - Other complications of procedures, not elsewhere classified, initial encounter (2) Status post lumbar laminectomy Status: Chronic Current Visit: Yes Code(s): Z98.890 - Other specified postprocedural states (3) Cardiomyopathy in diseases classified elsewhere Status: Chronic Current Visit: Yes Code(s): I43 - Cardiomyopathy in diseases classified elsewhere (4) Paroxysmal atrial fibrillation Status: Chronic Current Visit: Yes Code(s): I48.0 - Paroxysmal atrial fibrillation (5) Hyperlipidemia Status: Chronic Current Visit: Yes Qualifiers: Hyperlipidemia type: unspecified Qualified Code(s): E78.5 - Hyperlipidemia, unspecified Code(s): E78.5 - Hyperlipidemia, unspecified Type of Wound Date of Service: 12/19/18 Chief Complaint: Nonhealing surgical wound of lower back History of Wound: Mr. Marshall is a 73-yo who has been seen here at the wound center for a nonhealing surgical wound of his lower back s/p surgical debridement for an abscess s/p lumbar spine surgery. His original surgery on his lower back was approximately 2016 and he has had multiple complications since that time. He underwent surgical debridement on 03/04/[address] Davila at [facility] in [place] and was discharged with a wound vac for healing by secondary intention with possible muscle flap closure in the future. He followed up with his surgeon on 04/18/17 for further evaluation and recommendations and they plan to close the wound with a muscle flap but he continues to develop infections. He is also being seen by Infectious Disease as needed. CT 02/2018 did not show any abscess. Progress of Wound: Cuong is here for follow-up of his nonhealing surgical wound of his lower back. He tyolerated ascetic acid dressings and is tolerating ciprofloxacin for Pseudomonas infection. His wound was showing mild improvement with applications of Theraskin but it kept getting infected, so we discontinued this treatment. He continues to have very heavy drainage from his wound. He has had 10 applications of Purapply to his lower back wound with mild improvement which were completed 03/21/2018. Cuong saw the surgeon at [facility] again on August 27, 2018 and he does not think a skin flap would be an option but talked about doing a skin graft from his thigh to the lower back. He has been having increased pain in his back and left leg presumably from nerve impingement. Denies increased drainage, fever or chills. - Physical Exam Vital Signs Temp Pulse Resp BP 97.6 F L 89 16 138/79 H 12/19/18 08:35 12/19/18 08:35 12/19/18 08:35 12/19/18 08:35 General: Alert, Oriented x3, Cooperative, No apparent distress HEENT: Atraumatic, Normocephalic Oral: Moist Mucosa Abdomen: Soft Extremities: Edema Skin: Ulcer/ Wound Wound Measurements and Assessment WC - Nurse 1 - General Ulcer Measurement Start: 12/05/18 12:38 Freq: Status: Active Protocol: Activity Type Activity Date Activity User E-Sign Co-Sign Detail Recorded Client Recorded Date Recorded By Document 12/19/18 08:35 DV [id number] 12/19/18 08:52 DV 12/19/18 08:35 Wound Center Nurse 1 [Ulcer Assessment] #9 Lower Lumbar- Midline -Combined with other wound No -Current Size (cm) - Length 14.0 -Current Size (cm) - Width 5.0 -Current Size (cm) - Depth 0.4 -Total Square Cm 70.00 -Photo Taken No -Epithelialization None Present -Tunneling No -Undermining/Tunneling No -Circular Undermining No -Classification - Thickness Full Thickness without Exposed Support Structure -Exudate Amt Large -Exudate Type Serosanguineous -Wound Margin Thickened & Rolled Under -Granulation Amt Small (1-33%) -Granulation Quality Red -Slough/Fibrin Yes -Necrosis Amt Large (67-100%) -Necrotic Tissue Type Adherent Slough -Structure Exposed None/Limited to Skin Breakdown -Texture (Uma-wound Skin Appearance) Assessed, Scarring,Rash -Moisture (Uma-wound Skin Appearance Assessed, ) Weeping -Color (Uma-wound Skin Appearance) No Abnormality, Assessed -Temperature (Uma-wound Skin No Abnormality Appearance) (Pt Warm) -Tenderness on Palpation (Uma-wound No Skin Appearance) -Foul Odor after Cleansing No -Anesthetic Used 4% Lidocaine Solution WC - Nurse 2 - General Ulcer CM Notes Start: 12/05/18 12:38 Freq: Status: Active Protocol: Activity Type Activity Date Activity User E-Sign Co-Sign Detail Recorded Client Recorded Date Recorded By Document 12/19/18 08:35 DV [id number] 12/19/18 08:52 DV 12/19/18 08:35 Pain Scale: 0-10 Numeric [Pain] -Is Patient Pain Free? Yes Wound Center Nurse 2 [Procedure/Treatment] #9 Lower Lumbar- Midline -Time 08:41 -Correct Patient Yes -Correct Side, Site, Position Yes -Correct Procedure Yes -Procedure Performed Yes -Type of Procedure Debridement -Clinical Debridement Subcutaneous -Post Debridement Size (cm) - Length 12.8 -Post Debridement Size (cm) - Width 3.8 -Post Debridement Size (cm) - Depth 0.4 -Total Square Cm 48.64 -Wound/Ulcer Outcome Not Healed -Ulcer Cleansing Rinsed/ Irrigated with Saline -Foul Odor after Cleansing No -Bioengineered Tissue No -Bleeding Controlled with Pressure -Offloading No -Treatment Response Procedure Tolerated Well [See Physician Procedure note for Specifics] Psych/Mental Status: Normal Affect, Appropriate Debridement Note Post-Debridement Measurements/Treatment WC - Nurse 2 - General Ulcer CM Notes Start: 12/05/18 12:38 Freq: Status: Active Protocol: Activity Type Activity Date Activity User E-Sign Co-Sign Detail Recorded Client Recorded Date Recorded By Document 12/05/18 13:13 DV [id number] 12/05/18 13:31 DV Document 12/12/18 13:19 DV [id number] 12/12/18 13:31 DV Document 12/19/18 08:35 DV [id number] 12/19/18 08:52 DV 12/05/18 12/12/18 12/19/18 13:13 13:19 08:35 Wound Center Nurse 2 # 11 Left Heel -Time 13:25 -Correct Patient Yes -Correct Side, Site, Position Yes -Correct Procedure No -Procedure Performed No #9 Lower Lumbar- Midline -Time 13:25 13:23 08:41 -Correct Patient Yes Yes Yes -Correct Side, Site, Position Yes Yes Yes -Correct Procedure Yes Yes Yes -Procedure Performed Yes Yes Yes -Type of Procedure Debridement Debridement Debridement -Clinical Debridement Subcutaneous Subcutaneous Subcutaneous -Post Debridement Size (cm) - Length 13.7 13.0 12.8 -Post Debridement Size (cm) - Width 3.7 3.7 3.8 -Post Debridement Size (cm) - Depth 0.4 0.1 0.4 -Total Square Cm 50.69 48.10 48.64 -Wound/Ulcer Outcome Not Healed Not Healed Not Healed -Ulcer Cleansing Rinsed/ Rinsed/ Irrigated with Irrigated with Saline Saline -Foul Odor after Cleansing No No -Bioengineered Tissue No No -Bleeding Controlled with Pressure Pressure Pressure -Offloading No No -Treatment Response Procedure Procedure Procedure Tolerated Well Tolerated Well Tolerated Well Pain Scale: 0-10 Numeric Is Patient Pain Free? Yes Yes Yes Wound debrided: lower lumbar midline Laterality: Not Applicable Type of Debridement: Excisional debridement Anesthesia Used: 4% Lidocaine Solution Depth: Down to and including healthy tissue, in the subcutaneous layer Percentage of wound debrided: 100 Instrument Used: 7mm curette Tissue Removed: yellow slough, devitalized tissue Severity: Fat Layer Exposed Amount of bleeding with debridement: Mild Bleeding Controlled with: Compression and gauze Patient tolerated procedure well Assessment/Plan Active Problems (Last Updated 11/12/18 @ 19:05 by Paloma Jennings) Wound, surgical, nonhealing (Chronic) Status post lumbar laminectomy (Chronic) Cardiomyopathy in diseases classified elsewhere (Chronic) Paroxysmal atrial fibrillation (Chronic) Hyperlipidemia (Chronic) Assessment: chronic surgical wound dehiscence lumbar with complex abscess and recent surgical debridement. malnutrition. other multiple comorbidities. edema bilateral lower extremities. Bleeding site from within wound controlled with combination of silver nitrate and Surgifoam. Bleeding appears to be controlled. venous insufficiency. immunocompromised status. Plan: Evaluated Cuong's wounds today and debrided his lumbar wound. There has been some improvement in the edges of his lumbar wound. Will complete course of ciprofloxacin tomorrow. Wound culture taken today. Will continue using acetic acid wet to dry dressing of gauze and then KerraMaxCare with changes once daily for heavy amount of drainage of his lumbar wound. Continue increased protein intake. F/U in [address] Wick.
[2018-12-26 12:38] VITALS: BP 108/57; PULSE 81; RESP 18; TEMP 36.6; BMI 29.6
--- NOTE | 2018-12-26 13:13 | PCM.PN.ID ---
Subjective: Feeling ok, no fever, back stable. Off abx for past week. - Physical Exam General: Alert, Cooperative, No apparent distress Lungs: Clear to auscultation, Normal air movement Cardiovascular: Regular rate, Regular Rhythm Abdomen: Soft, Non Tender, Non-Distended Skin: Ulcer/ Wound - Lumbar ulcer, no purulence, no surrounding erythema Vital Signs Temp Pulse Resp BP 97.9 F 81 18 108/57 L 12/26/18 12:38 12/26/18 12:38 12/26/18 12:38 12/26/18 12:38 Oxygen Delivery Method Room Air Weight: 168.8 kg Body Mass Index (BMI) 29.6 Microbiology Past 72 Hours 12/19/18 08:15 Gram Stain - Final Wound Abcess - Abdominal Wound Culture - Final Corynebacterium minutissimum Propionibacterium propionicum Meth. resistant Staph. aureus Streptococcus agalactiae (B) Pseudomonas aeroginosa#2 Pseudomonas aeroginosa Anaerobic Culture - Final Anaerobic cocci Medical Necessity - Tobacco Use Smoking Status: Former smoker Tobacco Use: Non-smoker Route of nutrition/ use of supplements: [] Nutritional Intake: [] IV Site: [] Garcia Catheter: [] - Assessment/Plan Antibiotics: [] Assessment/Plan: [] Lumbar ulcer - chronic bacterial colonization. Recent wound cx with MRSA, PsA x2, corynebacterium, propionibacter, GBS, and anaerobes. Stable since stopping abx a week ago. Does not appear to be infected currently. Wound cx with negative gram stain for bacteria or wbc. Recommend watching off of abx. Ok for hip injection from ID perspective. Could consider course of iv abx prior to any future flap or graft placement. Will follow as needed, d/w Dr. Wick.
--- NOTE | 2018-12-26 17:41 | PN.PCM_ITS ---
(1) Wound, surgical, nonhealing Status: Chronic Current Visit: Yes Qualifiers: Encounter type: subsequent encounter Qualified Code(s): T81.89XD - Other complications of procedures, not elsewhere classified, subsequent encounter Code(s): T81.89XA - Other complications of procedures, not elsewhere classified, initial encounter (2) Status post lumbar laminectomy Status: Chronic Current Visit: Yes Code(s): Z98.890 - Other specified postprocedural states (3) Cardiomyopathy in diseases classified elsewhere Status: Chronic Current Visit: Yes Code(s): I43 - Cardiomyopathy in diseases classified elsewhere (4) Paroxysmal atrial fibrillation Status: Chronic Current Visit: Yes Code(s): I48.0 - Paroxysmal atrial fibrillation (5) Hyperlipidemia Status: Chronic Current Visit: Yes Qualifiers: Hyperlipidemia type: unspecified Qualified Code(s): E78.5 - Hyperlipidemia, unspecified Code(s): E78.5 - Hyperlipidemia, unspecified Type of Wound Date of Service: 12/26/18 Chief Complaint: Nonhealing surgical wound of lower back History of Wound: Mr. Marshall is a 73-yo who has been seen here at the wound [facility] for a nonhealing surgical wound of his lower back s/p surgical debridement for an abscess s/p lumbar spine surgery. His original surgery on his lower back was approximately 2016 and he has had multiple complications since that time. He underwent surgical debridement on 03/04/[address] Davila at [facility] in [place] and was discharged with a wound vac for healing by secondary intention with possible muscle flap closure in the future. He followed up with his surgeon on 04/18/17 for further evaluation and recommendations and they plan to close the wound with a muscle flap but he continues to develop infections. He is also being seen by Infectious Disease as needed. CT 02/2018 did not show any abscess. Progress of Wound: Cuong is here for follow-up of his nonhealing surgical wound of his lower back. He is tolerating ascetic acid dressings and completed course of ciprofloxacin for a positive wound culture. Unfortunately, a follow up wound culture performed while he was still taking ciprofloxacin showed multiple bacteria present but without signs of active infection such as white blood cells and initial gram stain also did not show any bacteria. Dr. Major was consulted and saw him today and agrees that there is not an active infection and that there is no contraindication to Cuong having an injection done by pain management. His wound was showing mild improvement with applications of Theraskin but it kept getting infected, so we discontinued this treatment. He continues to have very heavy drainage from his wound. He has had 10 applications of Purapply to his lower back wound with mild improvement which were completed 03/21/2018. Cuong saw the surgeon at [facility] again on August 27, 2018 and he does not think a skin flap would be an option but talked about doing a skin graft from his thigh to the lower back. He has been having increased pain in his back and left leg presumably from nerve impingement. Denies increased drainage, fever or chills. - Physical Exam Vital Signs Temp Pulse Resp BP 97.9 F 81 18 108/57 L 12/26/18 12:38 12/26/18 12:38 12/26/18 12:38 12/26/18 12:38 General: Alert, Oriented x3, Cooperative, No apparent distress HEENT: Atraumatic, Normocephalic Oral: Moist Mucosa Extremities: Edema Skin: Ulcer/ Wound Wound Measurements and Assessment WC - Nurse 1 - General Ulcer Measurement Start: 12/05/18 12:38 Freq: Status: Active Protocol: Activity Type Activity Date Activity User E-Sign Co-Sign Detail Recorded Client Recorded Date Recorded By Document 12/26/18 12:38 DL [id number] 12/26/18 12:48 DL 12/26/18 12:38 Wound Center Nurse 1 [Ulcer Assessment] #9 Lower Lumbar- Midline -Current Size (cm) - Length 13.2 -Current Size (cm) - Width 4.6 -Current Size (cm) - Depth 0.4 -Total Square Cm 60.72 -Photo Taken No -Exudate Amt Medium -Exudate Type Serosanguineous -Wound Margin Thickened -Granulation Amt Small (1-33%) -Granulation Quality [place] -Necrosis Amt Large (67-100%) -Necrotic Tissue Type Adherent Slough -Structure Exposed Fat Layer Exposed -Texture (Uma-wound Skin Appearance) Scarring -Moisture (Uma-wound Skin Appearance No Abnormality ) -Color (Uma-wound Skin Appearance) No Abnormality -Temperature (Uma-wound Skin No Abnormality Appearance) (Pt Warm) -Tenderness on Palpation (Uma-wound No Skin Appearance) -Ulcer Cleansing Wound Cleanser -Foul Odor after Cleansing No -Anesthetic Used 4% Lidocaine Solution - Nurse 2 - General Ulcer CM Notes Start: 12/05/18 12:38 Freq: Status: Active Protocol: Activity Type Activity Date Activity User E-Sign Co-Sign Detail Recorded Client Recorded Date Recorded By Document 12/26/18 12:54 MW [id number] 12/26/18 13:12 MW 12/26/18 12:54 Wound Center Nurse 2 [Procedure/Treatment] -Time 12:54 -Correct Patient Yes -Correct Side, Site, Position Yes -Correct Procedure Yes -Procedure Performed Yes -Type of Procedure Debridement -Clinical Debridement Subcutaneous -Post Debridement Size (cm) - Length 12.9 -Post Debridement Size (cm) - Width 4.0 -Post Debridement Size (cm) - Depth 0.4 -Total Square Cm 51.60 -Wound/Ulcer Outcome Not Healed -Ulcer Cleansing Rinsed/ Irrigated with Saline -Foul Odor after Cleansing No -Bioengineered Tissue No -Bleeding Controlled with Pressure -Offloading No -Treatment Response Procedure Tolerated Well [See Physician Procedure note for Specifics] Pain Scale: 0-10 Numeric [Pain] -Is Patient Pain Free? Yes Psych/Mental Status: Normal Affect, Appropriate Debridement Note Post-Debridement Measurements/Treatment - Nurse 2 - General Ulcer CM Notes Start: 12/05/18 12:38 Freq: Status: Active Protocol: Activity Type Activity Date Activity User E-Sign Co-Sign Detail Recorded Client Recorded Date Recorded By Document 12/05/18 13:13 DV [id number] 12/05/18 13:31 DV Document 12/12/18 13:19 DV [id number] 12/12/18 13:31 DV Document 12/19/18 08:35 DV [id number] 12/19/18 08:52 DV Document 12/26/18 12:54 MW [id number] 12/26/18 13:12 MW 12/05/18 12/12/18 12/19/18 13:13 13:19 08:35 Wound Center Nurse 2 # 11 Left Heel -Time 13:25 -Correct Patient Yes -Correct Side, Site, Position Yes -Correct Procedure No -Procedure Performed No #9 Lower Lumbar- Midline -Time 13:25 13:23 08:41 -Correct Patient Yes Yes Yes -Correct Side, Site, Position Yes Yes Yes -Correct Procedure Yes Yes Yes -Procedure Performed Yes Yes Yes -Type of Procedure Debridement Debridement Debridement -Clinical Debridement Subcutaneous Subcutaneous Subcutaneous -Post Debridement Size (cm) - Length 13.7 13.0 12.8 -Post Debridement Size (cm) - Width 3.7 3.7 3.8 -Post Debridement Size (cm) - Depth 0.4 0.1 0.4 -Total Square Cm 50.69 48.10 48.64 -Wound/Ulcer Outcome Not Healed Not Healed Not Healed -Ulcer Cleansing Rinsed/ Rinsed/ Irrigated with Irrigated with Saline Saline -Foul Odor after Cleansing No No -Bioengineered Tissue No No -Bleeding Controlled with Pressure Pressure Pressure -Offloading No No -Treatment Response Procedure Procedure Procedure Tolerated Well Tolerated Well Tolerated Well Pain Scale: 0-10 Numeric Is Patient Pain Free? Yes Yes Yes 12/26/18 12:54 Wound Center Nurse 2 # 11 Left Heel -Time -Correct Patient -Correct Side, Site, Position -Correct Procedure -Procedure Performed #9 Lower Lumbar- Midline -Time 12:54 -Correct Patient Yes -Correct Side, Site, Position Yes -Correct Procedure Yes -Procedure Performed Yes -Type of Procedure Debridement -Clinical Debridement Subcutaneous -Post Debridement Size (cm) - Length 12.9 -Post Debridement Size (cm) - Width 4.0 -Post Debridement Size (cm) - Depth 0.4 -Total Square Cm 51.60 -Wound/Ulcer Outcome Not Healed -Ulcer Cleansing Rinsed/ Irrigated with Saline -Foul Odor after Cleansing No -Bioengineered Tissue No -Bleeding Controlled with Pressure -Offloading No -Treatment Response Procedure Tolerated Well Pain Scale: 0-10 Numeric Is Patient Pain Free? Yes Wound debrided: lower lumbar midline Laterality: Not Applicable Type of Debridement: Excisional debridement Anesthesia Used: 4% Lidocaine Solution Depth: Down to and including healthy tissue, in the subcutaneous layer Percentage of wound debrided: 100 Instrument Used: 7mm curette Tissue Removed: devitalized tissue, yellow slough Severity: Fat Layer Exposed Amount of bleeding with debridement: Moderate Bleeding Controlled with: Compression and gauze, Gel Foam Patient tolerated procedure well Assessment/Plan Active Problems (Last Updated 11/12/18 @ 19:05 by Paloma Jennings) Wound, surgical, nonhealing (Chronic) Status post lumbar laminectomy (Chronic) Cardiomyopathy in diseases classified elsewhere (Chronic) Paroxysmal atrial fibrillation (Chronic) Hyperlipidemia (Chronic) Assessment: 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 malnutrition. other multiple comorbidities. edema bilateral lower extremities. venous insufficiency. immunocompromised status. Plan: Evaluated Cuong's wounds today and debrided his lumbar wound. There continues to be some improvement in the edges of his lumbar wound. Wound cultures were positive from last week but both ID and myself feel that this is not active infection and that he would be safe to proceed with having injection by pain management. Will continue using acetic acid wet to dry dressing of gauze and then KerraMaxCare with changes once daily for heavy amount of drainage of his lumbar wound. Continue increased protein intake. F/U in [address] Wick.
[2019-01-02 13:16] VITALS: BP 120/56; PULSE 86; RESP 18; TEMP 36.3; BMI 29.6
--- NOTE | 2019-01-02 18:21 | PN.PCM_ITS ---
(1) Wound, surgical, nonhealing Status: Chronic Current Visit: Yes Qualifiers: Encounter type: subsequent encounter Qualified Code(s): T81.89XD - Other complications of procedures, not elsewhere classified, subsequent encounter Code(s): T81.89XA - Other complications of procedures, not elsewhere classified, initial encounter (2) Status post lumbar laminectomy Status: Chronic Current Visit: Yes Code(s): Z98.890 - Other specified postprocedural states (3) Cardiomyopathy in diseases classified elsewhere Status: Chronic Current Visit: Yes Code(s): I43 - Cardiomyopathy in diseases classified elsewhere (4) Paroxysmal atrial fibrillation Status: Chronic Current Visit: Yes Code(s): I48.0 - Paroxysmal atrial fibrillation (5) Hyperlipidemia Status: Chronic Current Visit: Yes Qualifiers: Hyperlipidemia type: unspecified Qualified Code(s): E78.5 - Hyperlipidemia, unspecified Code(s): E78.5 - Hyperlipidemia, unspecified Type of Wound Date of Service: 01/02/19 Chief Complaint: Nonhealing surgical wound of lower back History of Wound: Mr. Marshall is a 73-yo who has been seen here at the wound [facility] for a nonhealing surgical wound of his lower back s/p surgical debridement for an abscess s/p lumbar spine surgery. His original surgery on his lower back was approximately 2016 and he has had multiple complications since that time. He underwent surgical debridement on 03/04/[address] Davila at [facility] in [place] and was discharged with a wound vac for healing by secondary intention with possible muscle flap closure in the future. He followed up with his surgeon on 04/18/17 for further evaluation and recommendations and they plan to close the wound with a muscle flap but he continues to develop infections. He is also being seen by Infectious Disease as needed. CT 02/2018 did not show any abscess. Progress of Wound: Cuong is here for follow-up of his nonhealing surgical wound of his lower back. He is tolerating acetic acid dressings and his reports decreased drainage this week. Dr. Major was consulted and saw him today and agrees that there is not an active infection and that there is no contraindication to Cuong having an injection done by pain management. His wound was showing mild improvement with applications of Theraskin but it kept getting infected, so we discontinued this treatment. He continues to have very heavy drainage from his wound. He has had 10 applications of Purapply to his lower back wound with mild improvement which were completed 03/21/2018. Cuong saw the surgeon at [facility] again on August 27, 2018 and he does not think a skin flap would be an option but talked about doing a skin graft from his thigh to the lower back. He has been having increased pain in his back and left leg presumably from nerve impingement. Denies increased drainage, fever or chills. - Physical Exam Vital Signs Temp Pulse Resp BP 97.3 F L 86 18 120/56 L 01/02/19 13:16 01/02/19 13:16 01/02/19 13:16 01/02/19 13:16 General: Alert, Oriented x3, Cooperative, No apparent distress HEENT: Atraumatic, Normocephalic Oral: Moist Mucosa Skin: Ulcer/ Wound Wound Measurements and Assessment WC - Nurse 1 - General Ulcer Measurement Start: 12/05/18 12:38 Freq: Status: Active Protocol: Activity Type Activity Date Activity User E-Sign Co-Sign Detail Recorded Client Recorded Date Recorded By Document 01/02/19 13:16 [id number] 01/02/19 13:18 RB 01/02/19 13:16 Wound Center Nurse 1 [Ulcer Assessment] #9 Lower Lumbar- Midline -Combined with other wound No -Current Size (cm) - Length 14 -Current Size (cm) - Width 4.5 -Current Size (cm) - Depth 0.5 -Total Square Cm 63.0 -Tunneling No -Undermining/Tunneling No -Circular Undermining No -Exudate Amt Medium -Exudate Type Serosanguineous -Wound Margin Thickened & Rolled Under -Granulation Amt Large (67-100%) -Granulation Quality [place] -Slough/Fibrin Yes -Necrosis Amt Small (1-33%) -Necrotic Tissue Type Adherent Slough -Structure Exposed N/A -Texture (Uma-wound Skin Appearance) Assessed -Moisture (Uma-wound Skin Appearance Assessed ) -Color (Uma-wound Skin Appearance) Assessed -Temperature (Uma-wound Skin No Abnormality Appearance) (Pt Warm) -Tenderness on Palpation (Uma-wound No Skin Appearance) -Ulcer Cleansing Wound Cleanser -Foul Odor after Cleansing No -Anesthetic Used 4% Lidocaine Solution WC - Nurse 2 - General Ulcer CM Notes Start: 12/05/18 12:38 Freq: Status: Active Protocol: Activity Type Activity Date Activity User E-Sign Co-Sign Detail Recorded Client Recorded Date Recorded By Document 01/02/19 13:23 MW [id number] 01/02/19 13:43 MW 01/02/19 13:23 Wound Center Nurse 2 [Procedure/Treatment] -Time 13:23 -Correct Patient Yes -Correct Side, Site, Position Yes -Correct Procedure Yes -Procedure Performed Yes -Type of Procedure Debridement -Clinical Debridement Subcutaneous -Post Debridement Size (cm) - Length 12.7 -Post Debridement Size (cm) - Width 4.1 -Post Debridement Size (cm) - Depth 0.1 -Total Square Cm 52.07 -Wound/Ulcer Outcome Not Healed -Ulcer Cleansing Rinsed/ Irrigated with Saline -Foul Odor after Cleansing No -Bioengineered Tissue No -Bleeding Controlled with Pressure -Offloading No -Treatment Response Procedure Tolerated Well [See Physician Procedure note for Specifics] Pain Scale: 0-10 Numeric [Pain] -Is Patient Pain Free? Yes Psych/Mental Status: Normal Affect, Appropriate Debridement Note Post-Debridement Measurements/Treatment WC - Nurse 2 - General Ulcer CM Notes Start: 12/05/18 12:38 Freq: Status: Active Protocol: Activity Type Activity Date Activity User E-Sign Co-Sign Detail Recorded Client Recorded Date Recorded By Document 12/05/18 13:13 DV [id number] 12/05/18 13:31 DV Document 12/12/18 13:19 DV [id number] 12/12/18 13:31 DV Document 12/19/18 08:35 DV [id number] 12/19/18 08:52 DV Document 12/26/18 12:54 MW [id number] 12/26/18 13:12 MW Document 01/02/19 13:23 MW [id number] 01/02/19 13:43 MW 12/05/18 12/12/18 12/19/18 13:13 13:19 08:35 Wound Center Nurse 2 # 11 Left Heel -Time 13:25 -Correct Patient Yes -Correct Side, Site, Position Yes -Correct Procedure No -Procedure Performed No #9 Lower Lumbar- Midline -Time 13:25 13:23 08:41 -Correct Patient Yes Yes Yes -Correct Side, Site, Position Yes Yes Yes -Correct Procedure Yes Yes Yes -Procedure Performed Yes Yes Yes -Type of Procedure Debridement Debridement Debridement -Clinical Debridement Subcutaneous Subcutaneous Subcutaneous -Post Debridement Size (cm) - Length 13.7 13.0 12.8 -Post Debridement Size (cm) - Width 3.7 3.7 3.8 -Post Debridement Size (cm) - Depth 0.4 0.1 0.4 -Total Square Cm 50.69 48.10 48.64 -Wound/Ulcer Outcome Not Healed Not Healed Not Healed -Ulcer Cleansing Rinsed/ Rinsed/ Irrigated with Irrigated with Saline Saline -Foul Odor after Cleansing No No -Bioengineered Tissue No No -Bleeding Controlled with Pressure Pressure Pressure -Offloading No No -Treatment Response Procedure Procedure Procedure Tolerated Well Tolerated Well Tolerated Well Pain Scale: 0-10 Numeric Is Patient Pain Free? Yes Yes Yes 12/26/18 01/02/19 12:54 13:23 Wound Center Nurse 2 # 11 Left Heel -Time -Correct Patient -Correct Side, Site, Position -Correct Procedure -Procedure Performed #9 Lower Lumbar- Midline -Time 12:54 13:23 -Correct Patient Yes Yes -Correct Side, Site, Position Yes Yes -Correct Procedure Yes Yes -Procedure Performed Yes Yes -Type of Procedure Debridement Debridement -Clinical Debridement Subcutaneous Subcutaneous -Post Debridement Size (cm) - Length 12.9 12.7 -Post Debridement Size (cm) - Width 4.0 4.1 -Post Debridement Size (cm) - Depth 0.4 0.1 -Total Square Cm 51.60 52.07 -Wound/Ulcer Outcome Not Healed Not Healed -Ulcer Cleansing Rinsed/ Rinsed/ Irrigated with Irrigated with Saline Saline -Foul Odor after Cleansing No No -Bioengineered Tissue No No -Bleeding Controlled with Pressure Pressure -Offloading No No -Treatment Response Procedure Procedure Tolerated Well Tolerated Well Pain Scale: 0-10 Numeric Is Patient Pain Free? Yes Yes Wound debrided: lower lumbar midline Laterality: Not Applicable Type of Debridement: Excisional debridement Anesthesia Used: 4% Lidocaine Solution Depth: Down to and including healthy tissue, in the subcutaneous layer Percentage of wound debrided: 100 Instrument Used: 7mm curette Tissue Removed: yellow slough, devitalized tissue Severity: Fat Layer Exposed Amount of bleeding with debridement: Moderate Bleeding Controlled with: Compression and gauze, Gel Foam Patient tolerated procedure well Assessment/Plan Active Problems (Last Updated 11/12/18 @ 19:05 by Paloma Jennings) Wound, surgical, nonhealing (Chronic) Status post lumbar laminectomy (Chronic) Cardiomyopathy in diseases classified elsewhere (Chronic) Paroxysmal atrial fibrillation (Chronic) Hyperlipidemia (Chronic) Assessment: 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 malnutrition. other multiple comorbidities. edema bilateral lower extremities. venous insufficiency. immunocompromised status. Plan: Evaluated Cuong's wounds today and debrided his lumbar wound. There continues to be improvement in the edges of his lumbar wound. Will try application of Santyl to his wound and cover with Hydrofoam dressing then KerraMaxCare with changes once daily for heavy amount of drainage of his lumbar wound. Continue increased protein intake. F/U in [address] Wick.
== END 2019-01-03 23:59 ==
LOC: WC 12:30
PROVIDERS: Family Provider Family Medicine; PCP Family Medicine; Referring Provider Family Medicine; Visit Provider Family Medicine
DX: T81.31XA Disruption of external operation (surgical) wound, not elsewhere classified, initial encounter (principal); Y83.8 Other surgical procedures as the cause of abnormal reaction of the patient, or of later complication, without mention of misadventure at the time of the procedure; I48.0 Paroxysmal atrial fibrillation; E78.5 Hyperlipidemia, unspecified; I87.2 Venous insufficiency (chronic) (peripheral); I42.9 Cardiomyopathy, unspecified
CPT/HCPCS: 11042; 11045; 87070; 87075; 87076; 87077; 87186; 87205

== ENCOUNTER → 2019-01-09 10:53 | Outpatient (CLI) | payer MEDICARE, OTHER, SELFPAY ==
[2015-10-31 10:00] VITALS: BMI 34.9
[2018-12-22 11:34] VITALS: BMI 29.6
[2019-01-02 13:16] VITALS: BMI 29.6
[2019-01-09 11:14] VITALS: BP 110/50; PULSE 87; RESP 16; TEMP 36.6; O2SAT 92; BMI 30.4
[2019-01-09 11:23] LABS: Absolute Neutrophil Count 3.6 X10^3/uL (2.0-7.7); Basophil# 0.05 X10^3/uL; Basophil% 0.8 % (0-1); Eosinophil# 0.36 X10^3/uL; Eosinophils% 5.6 % (0-5); Hematocrit 25.5 % (40-54); Hemoglobin 8.3 g/dL (13.0-16.5); Lymphocyte % 20.2 % (19-41); Mean Corp Hgb Conc 32.5 g/dL (32-36); Mean Corpuscular Hgb 37.1 pg (27.0-32.0); Mean Corpuscular Volume 113.8 fL (80-94); Mean Platelet Vol. 9.8 fl (6.2-12.0); Monocyte# 1.14 X10^3/uL; Monocyte% 17.7 % (0-10); NRBC Flagged by Analyzer 0 % (0-5); Neutrophil # 3.56 X10^3/uL (2.7-7.7); Neutrophil % 55.2 % (47-70); POSITIVE MORPHOLOGY YES; Platelet Count 290 K/mm3 (150-450); RBC Distribution Width CV 17.2 % (11.6-14.6); Red Blood Count 2.24 M/mm3 (4.6-6.2); White Blood Count 6.4 K/mm3 (4.4-11.0)
[2019-01-09 11:32] LABS: Albumin, Serum 1.9 g/dL (3.2-5.0); BUN 23 mg/dL (7-18); BUN/Creat Ratio 16.7 RATIO (10-20); Calcium,Total 8.1 mg/dL (8.5-10.1); Chloride 105 mmol/L (98-107); Creatinine, Serum 1.38 mg/dL (0.70-1.30); EST Glomerular Filtration Rate 53 mL/min (>60); Est Glom Filt Rate - Afr Amer 65 mL/min (>60); Estimated Creatinine Clearance 45.43 ml/min; Glucose 103 mg/dL (74-106); Phosphorus 2.7 mg/dL (2.5-4.9); Potassium 4.4 mmol/L (3.5-5.1); Sodium Level 139 mmol/L (136-145)
[2019-01-09 11:47] LABS: Differential Indicated SCAN CRITERIA MET
[2019-01-09] MEDS: Epoetin Alfa-epbx 40,000 UNIT/ML 34000 UNIT SC (12:10)
== END ==
PROVIDERS: Family Provider Family Medicine; PCP Family Medicine; Referring Provider Internal Medicine Nephrology; Visit Provider Internal Medicine Nephrology
DX: N18.3 Chronic kidney disease, stage 3 (moderate) (principal); D63.1 Anemia in chronic kidney disease; T81.30XA Disruption of wound, unspecified, initial encounter; Y83.8 Other surgical procedures as the cause of abnormal reaction of the patient, or of later complication, without mention of misadventure at the time of the procedure; I87.2 Venous insufficiency (chronic) (peripheral)
CPT/HCPCS: 11042; 36415; 80069; 85025; 96372; Q5106

== ENCOUNTER 2019-01-23 13:00 | Outpatient (RCR) | payer MEDICARE, OTHER, SELFPAY ==
[2015-10-31 10:00] VITALS: BMI 34.9
[2019-01-04 00:29] VITALS: BP 120/56; PULSE 86; RESP 18; TEMP 36.3
[2019-01-09 11:14] VITALS: BMI 30.4
[2019-01-09 13:08] VITALS: BP 124/64; PULSE 87; RESP 18; BMI 30.4
--- NOTE | 2019-01-09 18:20 | PN.PCM_ITS ---
(1) Wound, surgical, nonhealing Status: Chronic Current Visit: Yes Qualifiers: Encounter type: subsequent encounter Code(s): T81.89XA - Other complications of procedures, not elsewhere classified, initial encounter (2) Status post lumbar laminectomy Status: Chronic Current Visit: Yes Code(s): Z98.890 - Other specified postprocedural states Type of Wound Date of Service: 01/09/19 Chief Complaint: Nonhealing surgical wound of lower back History of Wound: Mr. Marshall is a 73-yo who has been seen here at the wound center for a nonhealing surgical wound of his lower back s/p surgical debridement for an abscess s/p lumbar spine surgery. His original surgery on his lower back was approximately 2016 and he has had multiple complications since that time. He underwent surgical debridement on 03/04/[address] Davila at [facility] in [place] and was discharged with a wound vac for healing by secondary intention with possible muscle flap closure in the future. He followed up with his surgeon on 04/18/17 for further evaluation and recommendations and they plan to close the wound with a muscle flap but he continues to develop infections. He is also being seen by Infectious Disease as needed. CT 02/2018 did not show any abscess. Progress of Wound: Cuong is here for follow-up of his nonhealing surgical wound of his lower back. He is tolerating acetic acid dressings buit he has erythema surrounding his wound with severe itching. He did not receive Santyl - cost was too expensive. His wound was showing mild improvement with applications of Theraskin but it kept getting infected, so we discontinued this treatment. He continues to have very heavy drainage from his wound. He has had 10 applications of Purapply to his lower back wound with mild improvement which were completed 03/21/2018. Cuong saw the surgeon at [facility] again on August 27, 2018 and he does not think a skin flap would be an option but talked about doing a skin graft from his thigh to the lower back. He has been having increased pain in his back and left leg presumably from nerve impingement. Denies increased drainage, fever or chills. - Physical Exam Vital Signs Temp Pulse Resp BP 97.3 F L 87 18 124/64 H 01/04/19 00:29 01/09/19 13:08 01/09/19 13:08 01/09/19 13:08 General: Alert, Oriented x3, Cooperative, No apparent distress HEENT: Atraumatic, Normocephalic Oral: Moist Mucosa Skin: Ulcer/ Wound Wound Measurements and Assessment WC - Nurse 1 - General Ulcer Measurement Start: 01/09/19 13:08 Freq: Status: Active Protocol: Activity Type Activity Date Activity User E-Sign Co-Sign Detail Recorded Client Recorded Date Recorded By Document 01/09/19 13:08 [id number] 01/09/19 13:33 01/09/19 13:08 Wound Center Nurse 1 [Ulcer Assessment] #9 Lower Lumbar- Midline -Combined with other wound No -Photo Taken No -Epithelialization None Present -Undermining/Tunneling No -Circular Undermining No -Classification - Thickness Full Thickness with Exposed Support Structure -Exudate Amt Medium -Exudate Type Purulent -Wound Margin Thickened & Rolled Under -Granulation Amt Small (1-33%) -Granulation Quality Red -Slough/Fibrin Yes -Necrosis Amt Small (1-33%) -Necrotic Tissue Type Adherent Slough -Structure Exposed Bone -Texture (Uma-wound Skin Appearance) Assessed, Friable -Moisture (Uma-wound Skin Appearance Assessed, ) Maceration -Color (Uma-wound Skin Appearance) Assessed,Palor -Temperature (Uma-wound Skin No Abnormality Appearance) (Pt Warm) -Tenderness on Palpation (Uma-wound Yes Skin Appearance) -Ulcer Cleansing Rinsed/ Irrigated with Saline -Foul Odor after Cleansing No -Anesthetic Used 4% Lidocaine Solution [Edema Assessment] -Lower Limb Edema Present No WC - Nurse 2 - General Ulcer CM Notes Start: 01/09/19 13:08 Freq: Status: Active Protocol: Activity Type Activity Date Activity User E-Sign Co-Sign Detail Recorded Client Recorded Date Recorded By Document 01/09/19 14:04 [id number] 01/09/19 14:10 01/09/19 14:04 Wound Center Nurse 2 [Procedure/Treatment] #9 Lower Lumbar- Midline -Correct Patient Yes -Correct Side, Site, Position Yes -Correct Procedure Yes -Procedure Performed Yes -Type of Procedure Debridement -Clinical Debridement Subcutaneous, Muscle,Bone -Post Debridement Size (cm) - Length 13.7 -Post Debridement Size (cm) - Width 4.0 -Post Debridement Size (cm) - Depth 0.4 -Total Square Cm 54.80 -Wound/Ulcer Outcome Not Healed -Ulcer Cleansing Rinsed/ Irrigated with Saline -Foul Odor after Cleansing No -Bioengineered Tissue No -Bleeding Controlled with Pressure, SURGIFOAM -Treatment Response Procedure Tolerated Well [See Physician Procedure note for Specifics] Pain Scale: 0-10 Numeric [Pain] -Is Patient Pain Free? No Psych/Mental Status: Normal Affect, Appropriate Debridement Note Post-Debridement Measurements/Treatment WC - Nurse 2 - General Ulcer CM Notes Start: 01/09/19 13:08 Freq: Status: Active Protocol: Activity Type Activity Date Activity User E-Sign Co-Sign Detail Recorded Client Recorded Date Recorded By Document 01/09/19 14:04 [id number] 01/09/19 14:10 01/09/19 14:04 Wound Center Nurse 2 #9 Lower Lumbar- Midline -Correct Patient Yes -Correct Side, Site, Position Yes -Correct Procedure Yes -Procedure Performed Yes -Type of Procedure Debridement -Clinical Debridement Subcutaneous, Muscle,Bone -Post Debridement Size (cm) - Length 13.7 -Post Debridement Size (cm) - Width 4.0 -Post Debridement Size (cm) - Depth 0.4 -Total Square Cm 54.80 -Wound/Ulcer Outcome Not Healed -Ulcer Cleansing Rinsed/ Irrigated with Saline -Foul Odor after Cleansing No -Bioengineered Tissue No -Bleeding Controlled with Pressure, SURGIFOAM -Treatment Response Procedure Tolerated Well Pain Scale: 0-10 Numeric Is Patient Pain Free? No Wound debrided: lower lumbar midline Laterality: Not Applicable Type of Debridement: Excisional debridement Anesthesia Used: 4% Lidocaine Solution Depth: Down to and including healthy tissue, in the subcutaneous layer Percentage of wound debrided: 100 Instrument Used: 7mm curette Tissue Removed: yellow slough, devitalized tissue Severity: Fat Layer Exposed Amount of bleeding with debridement: Moderate Bleeding Controlled with: Gel Foam Patient tolerated procedure well Assessment/Plan Active Problems (Last Updated 11/12/18 @ 19:05 by Paloma Jennings) Wound, surgical, nonhealing (Chronic) Status post lumbar laminectomy (Chronic) Assessment: 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 malnutrition. other multiple comorbidities. edema bilateral lower extremities. venous insufficiency. immunocompromised status. Plan: Evaluated Cuong's wound today and debrided his lumbar wound. There continues to be improvement in the edges of his lumbar wound. WIll treat for possible yeast infection with Diflucan 200 mg x 1. If no improvement in the periwound erythema then I would do wound culture and treat with antibiotics. Also, possibility of irritation from acetic acid. Will alternate dressings with Aquacel and acetic acid. Will cover with KerraMaxCare and wound drape with changes once daily for heavy amount of drainage of his lumbar wound. Continue increased protein intake. F/U in [address] Wick.
[2019-01-16 13:59] VITALS: BMI 30.4
--- NOTE | 2019-01-16 19:19 | PCM.WC.PN ---
(1) Wound, surgical, nonhealing Status: Chronic Qualifiers: Encounter type: subsequent encounter Qualified Code(s): T81.89XD - Other complications of procedures, not elsewhere classified, subsequent encounter Code(s): T81.89XA - Other complications of procedures, not elsewhere classified, initial encounter (2) Status post lumbar laminectomy Status: Chronic Code(s): Z98.890 - Other specified postprocedural states Type of Wound Date of Service: 01/23/19 Chief Complaint: Nonhealing surgical wound of lower back History of Wound: Mr. Marshall is a 73-yo who has been seen here at the wound center for a nonhealing surgical wound of his lower back s/p surgical debridement for an abscess s/p lumbar spine surgery. His original surgery on his lower back was approximately 2016 and he has had multiple complications since that time. He underwent surgical debridement on 03/04/[address] Davila at [facility] in [place] and was discharged with a wound vac for healing by secondary intention with possible muscle flap closure in the future. He followed up with his surgeon on 04/18/17 for further evaluation and recommendations and they plan to close the wound with a muscle flap but he continues to develop infections. He is also being seen by Infectious Disease as needed. CT 02/2018 did not show any abscess. Progress of Wound: Cuong is here for follow-up of his nonhealing surgical wound of his lower back. His spencer-wound erythema improved after treatment with fluconazole and holding acetic acid dressings this week. He did not receive Santyl - cost was too expensive. His wound was showing mild improvement with applications of Theraskin but it kept getting infected, so we discontinued this treatment. He continues to have very heavy drainage from his wound. He has had 10 applications of Purapply to his lower back wound with mild improvement which were completed 03/21/2018. Cuong saw the surgeon at [facility] again on August 27, 2018 and he does not think a skin flap would be an option but talked about doing a skin graft from his thigh to the lower back. He has been having increased pain in his back and left leg presumably from nerve impingement. Denies increased drainage, fever or chills. - Physical Exam Vital Signs Temp Pulse Resp BP 97.3 F L 87 18 124/64 H 01/04/19 00:29 01/09/19 13:08 01/09/19 13:08 01/09/19 13:08 General: Alert, Oriented x3, Cooperative, No apparent distress HEENT: Atraumatic, Normocephalic Oral: Moist Mucosa Extremities: Edema Skin: Ulcer/ Wound Wound Measurements and Assessment WC - Nurse 1 - General Ulcer Measurement Start: 01/09/19 13:08 Freq: Status: Active Protocol: Activity Type Activity Date Activity User E-Sign Co-Sign Detail Recorded Client Recorded Date Recorded By Document 01/16/19 13:59 [id number] 01/16/19 14:03 01/16/19 13:59 Wound Center Nurse 1 [Ulcer Assessment] # 11 Left Heel -Combined with other wound No #9 Lower Lumbar- Midline -Combined with other wound No -Current Size (cm) - Length 13.7 -Current Size (cm) - Width 4 -Current Size (cm) - Depth 0.4 -Total Square Cm 54.8 -Photo Taken No -Epithelialization None Present -Tunneling No -Undermining/Tunneling No -Circular Undermining No -Classification - Thickness Full Thickness without Exposed Support Structure -Change in Wound Grade/Stage No Query Text:If change please identify the Stage/Grade in the comment (ie. S2 G3) -Exudate Amt Large -Exudate Type Serosanguineous -Wound Margin Distinct, Outline Attached -Granulation Amt None Present (0 %) -Granulation Quality N/A -Slough/Fibrin Yes -Necrosis Amt Large (67-100%) -Necrotic Tissue Type Adherent Slough -Structure Exposed Bone -Texture (Spencer-wound Skin Appearance) No Abnormality, Assessed -Moisture (Spencer-wound Skin Appearance No Abnormality, ) Assessed -Color (Spencer-wound Skin Appearance) Assessed, Erythema -Temperature (Spencer-wound Skin No Abnormality Appearance) (Pt Warm) -Tenderness on Palpation (Spencer-wound No Skin Appearance) -Foul Odor after Cleansing No -Anesthetic Used 5% Lidocaine Gel [Edema Assessment] -Lower Limb Edema Present No WC - Nurse 2 - General Ulcer CM Notes Start: 01/09/19 13:08 Freq: Status: Active Protocol: Activity Type Activity Date Activity User E-Sign Co-Sign Detail Recorded Client Recorded Date Recorded By Document 01/16/19 13:59 [id number] 01/16/19 14:03 01/16/19 13:59 Pain Scale: 0-10 Numeric [Pain] -Is Patient Pain Free? No Wound Center Nurse 2 [See Physician Procedure note for Specifics] Psych/Mental Status: Normal Affect, Appropriate Debridement Note Post-Debridement Measurements/Treatment WC - Nurse 2 - General Ulcer CM Notes Start: 01/09/19 13:08 Freq: Status: Active Protocol: Activity Type Activity Date Activity User E-Sign Co-Sign Detail Recorded Client Recorded Date Recorded By Document 01/09/19 14:04 [id number] 01/09/19 14:10 Document 01/16/19 13:59 [id number] 01/16/19 14:03 01/09/19 01/16/19 14:04 13:59 Wound Center Nurse 2 #9 Lower Lumbar- Midline -Correct Patient Yes yes -Correct Side, Site, Position Yes yes -Correct Procedure Yes yes -Procedure Performed Yes yes -Type of Procedure Debridement debridement -Clinical Debridement Subcutaneous, subcutaneuos Muscle,Bone -Post Debridement Size (cm) - Length 13.7 13.7 -Post Debridement Size (cm) - Width 4.0 4.0 -Post Debridement Size (cm) - Depth 0.4 0.4 -Total Square Cm 54.80 54.80 -Wound/Ulcer Outcome Not Healed not healed -Ulcer Cleansing Rinsed/ Irrigated with Saline -Foul Odor after Cleansing No -Bioengineered Tissue No -Bleeding Controlled with Pressure, SURGIFOAM -Treatment Response Procedure Tolerated Well Pain Scale: 0-10 Numeric Is Patient Pain Free? No No Wound debrided: lower lumbar midline Laterality: Not Applicable Type of Debridement: Excisional debridement Anesthesia Used: 4% Lidocaine Solution Depth: Down to and including healthy tissue, in the subcutaneous layer, to muscle Percentage of wound debrided: 100 Instrument Used: 7mm curette Tissue Removed: yellow slough, devitalized tissue Severity: Fat Layer Exposed Amount of bleeding with debridement: Mild Bleeding Controlled with: Compression and gauze, Silver Nitrate, Gel Foam Patient tolerated procedure well Assessment/Plan Assessment: 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 malnutrition. other multiple comorbidities. edema bilateral lower extremities. venous insufficiency. immunocompromised status. Plan: Evaluated Cuong's wound today and debrided his lumbar wound. There has been minimal improvement in his wound but it continues to look free of infection. His periwound area is less erythematous. Will alternate dressings with Aquacel and acetic acid. Will cover with KerraMaxCare and wound drape with changes once daily for heavy amount of drainage of his lumbar wound. Continue increased protein intake. F/U in [address] Wick.
[2019-01-23 13:41] VITALS: BP 124/70; PULSE 84; RESP 20; TEMP 35.9; BMI 30.4
--- NOTE | 2019-01-23 17:52 | PN.PCM_ITS ---
(1) Wound, surgical, nonhealing Status: Chronic Current Visit: Yes Qualifiers: Encounter type: subsequent encounter Qualified Code(s): T81.89XD - Other complications of procedures, not elsewhere classified, subsequent encounter Code(s): T81.89XA - Other complications of procedures, not elsewhere classified, initial encounter (2) Status post lumbar laminectomy Status: Chronic Current Visit: Yes Code(s): Z98.890 - Other specified postprocedural states Type of Wound Date of Service: 01/23/19 Chief Complaint: Nonhealing surgical wound of lower back History of Wound: Mr. Marshall is a 73-yo who has been seen here at the wound center for a nonhealing surgical wound of his lower back s/p surgical debridement for an abscess s/p lumbar spine surgery. His original surgery on his lower back was approximately 2015 and he has had multiple complications since that time. He underwent surgical debridement on 03/04/[address] Davila at [facility] in [place] and was discharged with a wound vac for healing by secondary intention with possible muscle flap closure in the future. He followed up with his surgeon on 04/18/17 for further evaluation and recommendations and they plan to close the wound with a muscle flap but he continues to develop infections. He is also being seen by Infectious Disease as needed. CT 02/2018 did not show any abscess. Progress of Wound: Cuong is here for follow-up of his nonhealing surgical wound of his lower back. He started using Santyl 2 days ago. He has had increased pain of his wound and in his low back/legs. His denies significant increase in drainage. Still very heavy. His wound was showing mild improvement with applications of Theraskin but it kept getting infected, so we discontinued this treatment. He continues to have very heavy drainage from his wound. He has had 10 applications of Purapply to his lower back wound with mild improvement which were completed 03/21/2018. Cuong saw the surgeon at [facility] again on August 27, 2018 and he does not think a skin flap would be an option but talked about doing a skin graft from his thigh to the lower back. He has been having increased pain in his back and left leg presumably from nerve impingement. Denies increased drainage, fever or chills. - Physical Exam Vital Signs Temp Pulse Resp BP 96.6 F L 84 20 H 124/70 H 01/23/19 13:41 01/23/19 13:41 01/23/19 13:41 01/23/19 13:41 General: Alert, Oriented x3, Cooperative, No apparent distress HEENT: Atraumatic, Normocephalic Oral: Moist Mucosa Neck: Supple Extremities: Edema Skin: Ulcer/ Wound Wound Measurements and Assessment WC - Nurse 1 - General Ulcer Measurement Start: 01/09/19 13:08 Freq: Status: Active Protocol: Activity Type Activity Date Activity User E-Sign Co-Sign Detail Recorded Client Recorded Date Recorded By Document 01/23/19 13:41 [id number] 01/23/19 14:14 01/23/19 13:41 Wound Center Nurse 1 [Ulcer Assessment] # 11 Left Heel -Combined with other wound No #9 Lower Lumbar- Midline -Combined with other wound No -Photo Taken No -Epithelialization Medium 34-66% -Undermining/Tunneling No -Circular Undermining No -Classification - Thickness Full Thickness with Exposed Support Structure -Change in Wound Grade/Stage No Query Text:If change please identify the Stage/Grade in the comment (ie. S2 G3) -Exudate Amt Medium -Exudate Type Serosanguineous -Wound Margin Distinct, Outline Attached -Granulation Amt Medium (34-66%) -Granulation Quality [place] -Slough/Fibrin Yes -Necrosis Amt Medium (34-66%) -Necrotic Tissue Type Adherent Slough -Structure Exposed Tendon,Fascia, Muscle -Texture (Uma-wound Skin Appearance) Assessed, Localized Edema -Moisture (Uma-wound Skin Appearance No Abnormality, ) Assessed -Color (Uma-wound Skin Appearance) Assessed,Palor -Temperature (Uma-wound Skin No Abnormality Appearance) (Pt Warm) -Tenderness on Palpation (Uma-wound No Skin Appearance) -Ulcer Cleansing soap and water -Foul Odor after Cleansing No -Anesthetic Used 5% Lidocaine Gel [Edema Assessment] -Lower Limb Edema Present No WC - Nurse 2 - General Ulcer CM Notes Start: 01/09/19 13:08 Freq: Status: Active Protocol: Activity Type Activity Date Activity User E-Sign Co-Sign Detail Recorded Client Recorded Date Recorded By Document 01/23/19 13:41 [id number] 01/23/19 14:14 01/23/19 13:41 Pain Scale: 0-10 Numeric [Pain] -Is Patient Pain Free? No Wound Center Nurse 2 [Procedure/Treatment] # 11 Left Heel -Bleeding Controlled with Pressure -Offloading No -Treatment Response Procedure Tolerated Well #9 Lower Lumbar- Midline -Correct Patient Yes -Correct Side, Site, Position Yes -Correct Procedure Yes -Procedure Performed Yes -Type of Procedure Debridement -Clinical Debridement Subcutaneous -Post Debridement Size (cm) - Length 13.8 -Post Debridement Size (cm) - Width 4.0 -Post Debridement Size (cm) - Depth 0.4 -Total Square Cm 55.20 -Wound/Ulcer Outcome Not Healed -Ulcer Cleansing Rinsed/ Irrigated with Saline -Foul Odor after Cleansing No -Bioengineered Tissue No -Bleeding Controlled with Pressure -Offloading No -Treatment Response Procedure Tolerated Well [See Physician Procedure note for Specifics] Psych/Mental Status: Normal Affect, Appropriate Debridement Note Post-Debridement Measurements/Treatment WC - Nurse 2 - General Ulcer CM Notes Start: 01/09/19 13:08 Freq: Status: Active Protocol: Activity Type Activity Date Activity User E-Sign Co-Sign Detail Recorded Client Recorded Date Recorded By Document 01/09/19 14:04 [id number] 01/09/19 14:10 Document 01/16/19 13:59 [id number] 01/16/19 14:03 Document 01/23/19 13:41 [id number] 01/23/19 14:14 01/09/19 01/16/19 01/23/19 14:04 13:59 13:41 Wound Center Nurse 2 # 11 Left Heel -Bleeding Controlled with Pressure -Offloading No -Treatment Response Procedure Tolerated Well #9 Lower Lumbar- Midline -Correct Patient Yes Yes -Correct Side, Site, Position Yes Yes -Correct Procedure Yes Yes -Procedure Performed Yes Yes -Type of Procedure Debridement Debridement -Clinical Debridement Subcutaneous, Subcutaneous Muscle,Bone -Post Debridement Size (cm) - Length 13.7 13.8 -Post Debridement Size (cm) - Width 4.0 4.0 -Post Debridement Size (cm) - Depth 0.4 0.4 -Total Square Cm 54.80 55.20 -Wound/Ulcer Outcome Not Healed Not Healed -Ulcer Cleansing Rinsed/ Rinsed/ Irrigated with Irrigated with Saline Saline -Foul Odor after Cleansing No No -Bioengineered Tissue No No -Bleeding Controlled with Pressure, Pressure SURGIFOAM -Offloading No -Treatment Response Procedure Procedure Tolerated Well Tolerated Well Pain Scale: 0-10 Numeric Is Patient Pain Free? No No No Wound debrided: lower lumbar midline Laterality: Not Applicable Type of Debridement: Excisional debridement Anesthesia Used: 4% Lidocaine Solution, 5% Lidocaine Gel Depth: Down to and including healthy tissue, in the subcutaneous layer, to muscle Percentage of wound debrided: 100 Instrument Used: 7mm curette Tissue Removed: yellow slough, devitalized tissue Severity: Fat Layer Exposed Amount of bleeding with debridement: Moderate Bleeding Controlled with: Compression and gauze, Gel Foam Patient tolerated procedure well Assessment/Plan Active Problems (Last Updated 11/12/18 @ 19:05 by Paloma Jennings) Wound, surgical, nonhealing (Chronic) Status post lumbar laminectomy (Chronic) Assessment: 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 malnutrition. other multiple comorbidities. edema bilateral lower extremities. venous insufficiency. immunocompromised status. Plan: Evaluated Cuong's wound today and debrided his lumbar wound. There has been minimal improvement in his wound and it is still erythematous around his wound and has become more painful. Will treat him with antibiotics and if no improvement will do culture of wound. Will alternate dressings with Aquacel and acetic acid with Santyl to the base of his wound. Will cover with KerraMaxCare and wound drape with changes once daily for heavy amount of drainage of his lumbar wound. Continue increased protein intake. F/U in [address] Wick.
== END 2019-02-02 23:59 ==
LOC: WC 13:00
PROVIDERS: Family Provider Family Medicine; PCP Family Medicine; Referring Provider Family Medicine; Visit Provider Family Medicine
DX: T81.30XA Disruption of wound, unspecified, initial encounter (principal); Y83.8 Other surgical procedures as the cause of abnormal reaction of the patient, or of later complication, without mention of misadventure at the time of the procedure; I87.2 Venous insufficiency (chronic) (peripheral)
CPT/HCPCS: 11042; 36415; 80069; 85025; 96372; 97602; Q5106

== ENCOUNTER → 2019-01-26 10:55 | Outpatient (CLI) | payer MEDICARE, OTHER, SELFPAY ==
[2015-10-31 10:00] VITALS: BMI 34.9
[2019-01-09 11:14] VITALS: BMI 30.4
[2019-01-23 13:41] VITALS: BMI 30.4
[2019-01-26 11:16] LABS: Hematocrit 23.4 % (40-54); Hemoglobin 7.2 g/dL (13.0-16.5)
[2019-01-26 11:36] VITALS: BP 106/52; PULSE 80; RESP 16; O2SAT 98; BMI 30.4
--- NOTE | 2019-01-26 11:49 | NURSING ---
PT REMINDED THAT PER DR. ZAMORANO'S ORDER AND PROTOCOL, HE SHOULD BE GETTING WEEKLY RETACRIT INJECTIONS. PATIENT REFUSES, WANTS TO STAY BIWEEKLY
[2019-01-26] MEDS: Epoetin Alfa-epbx 40,000 UNIT/ML 34000 UNIT SC (11:53)
== END ==
PROVIDERS: Family Provider Family Medicine; PCP Family Medicine; Referring Provider Internal Medicine Nephrology; Visit Provider Internal Medicine Nephrology
DX: N18.3 Chronic kidney disease, stage 3 (moderate) (principal); D63.1 Anemia in chronic kidney disease
CPT/HCPCS: 36415; 85014; 85018; 96372; Q5106

== ENCOUNTER 2019-02-09 09:19 | Day surgery (SDC) | payer MEDICARE, OTHER, SELFPAY ==
[2015-10-31 10:00] VITALS: BMI 34.9
[2019-02-06 13:04] VITALS: BMI 30.4
[2019-02-09 10:00] VITALS: BP 128/60; PULSE 77; RESP 15; TEMP 36.8; O2SAT 96; BMI 30.5
[2019-02-09] MEDS: Lactated Ringers 1,000 ML 100 ML IV (10:10)
[2019-02-09] MEDS: MethylPREDNISolone Acetate 80 MG/ML Vial (10:34)
[2019-02-09] MEDS: Bupivacaine 0.25% 30 ML Vial (10:34)
[2019-02-09 10:44] VITALS: BP 128/60; BP 99/48; PULSE 86; RESP 16; TEMP 37.1; O2SAT 96
[2019-02-09 10:50] VITALS: BP 100/50; BP 128/60; PULSE 85; RESP 18; O2SAT 95
--- NOTE | 2019-02-09 10:50 | RAD_ITS ---
PROCEDURE: Caudal block injection DATE OF EXAMINATION: 02/09/2019 INDICATION: Male, 73 years old. Pain PHYSICIAN: Dr. Lucius Villanueva FLUOROSCOPY TIME (if supplied): (0:08) minutes/seconds RADIATION DOSAGE (If Supplied By Facility): ( 3.84 ) mGy A call block injection was performed under the direction of Dr. Villanueva and 2 films were submitted for interpretation showing some contrast material in the spinal canal of the sacrum. Images and is procedure was completed to Dr. Villanueva satisfaction. RAD/Fluor Guidance for Spine Inj IMPRESSION: A caudal block injection was performed under the direction of Dr. Villanueva as described above. Electronically Signed: Wade Raza, at 11:58 EDT Tel , Service support ,
[2019-02-09 10:55] VITALS: BP 114/63; BP 128/60; PULSE 86; RESP 18; O2SAT 96
[2019-02-09 10:56] VITALS: BP 116/68; BP 128/60; PULSE 87; RESP 18; TEMP 37.1; O2SAT 98
--- NOTE | 2019-02-09 12:34 | OP.PCM_ITS ---
Report of Operation Date of Procedure: 02/09/19 Description of Surgical Findings:: PREOPERATIVE DIAGNOSIS: Lumbosacral radiculopathy, lumbosacral degenerative disc disease, lumbosacral spinal stenosis POSTOPERATIVE DIAGNOSIS: Lumbar sacral radiculopathy, lumbosacral degenerative disc disease, lumbosacral spinal stenosis PROCEDURE PERFORMED: Caudal epidural steroid injection. ANESTHESIA: MAC. BLOOD LOSS: Minimal. COMPLICATIONS: None. DESCRIPTION OF PROCEDURE: History and physical of today was reviewed. Risks and benefits of the procedure were explained. The patient understood and agreed to proceed. Informed consent was obtained. IV inserted per routine protocol. The patient was taken to the operating room and placed in the prone position with a pillow positioned underneath the abdomen. The lower back and tailbone area was prepped and draped in a sterile fashion using iodine x3. Under f luoroscopy guidance on a lateral view, the caudal space was identified. The skin and subcutaneous tissue was anesthetized with approximately 3 mL of 1% lidocaine using a 25-gauge regular needle. Under direct visualization with fluoroscopy, using a 22-gauge 3-1/2-inch spinal needle, the needle was advanced via the skin through the sacral hiatus. The tip of the needle was passed through the sacrococcygeal ligament and advanced to approximately S4 area. After negative aspiration of blood or CSF, a total of 3 mL of contrast was injected to confirm correct placement of the needle as well as cephalad spread. The spread was followed to approximately L5 area. After confirmation on AP as well as lateral view and repeated negative aspiration, a total of 15 mL of preservative-free 0.125% Marcaine with 80 mg of Depo-Medrol was injected easily. The needle was then removed intact. The patient experienced no sign or symptoms of intrathecal or intravascular injection. The patient experienced no paresthesia. The procedure was completed without any apparent difficulty or any complications. The patient appeared to tolerate it well. ASSESSMENT AND PLAN: This is an 73-year-old male with lumbosacral radiculopathy, lumbosacral degenerative disc disease, lumbosacral spinal stenosis status post caudal epidural steroid injection patient will continue his current medications patient found approximately 2 weeks for reevaluation.
[2019-02-09 14:24] VITALS: BP 128/60
== END 2019-02-09 14:26 | disposition home or self-care (01) ==
LOC: SDC 09:19 → AC 09:21
PROVIDERS: Family Provider Family Medicine; PCP Family Medicine; Referring Provider Anesthesiology Pain Medicine; Visit Provider Anesthesiology Pain Medicine
PROC: 3E0S3BZ Introduction of Anesthetic Agent into Epidural Space, Percutaneous Approach (ICD-10-PCS; CPT 62282; principal; 2019-02-09 10:45)
DX: M51.17 Intervertebral disc disorders with radiculopathy, lumbosacral region (principal); M51.26 Other intervertebral disc displacement, lumbar region; M96.1 Postlaminectomy syndrome, not elsewhere classified; M48.07 Spinal stenosis, lumbosacral region; I13.0 Hypertensive heart and chronic kidney disease with heart failure and stage 1 through stage 4 chronic kidney disease, or unspecified chronic kidney disease; I50.9 Heart failure, unspecified; N18.9 Chronic kidney disease, unspecified; D64.9 Anemia, unspecified; I48.91 Unspecified atrial fibrillation; M10.9 Gout, unspecified; J45.909 Unspecified asthma, uncomplicated; J44.9 Chronic obstructive pulmonary disease, unspecified; E78.5 Hyperlipidemia, unspecified; G47.33 Obstructive sleep apnea (adult) (pediatric); M19.90 Unspecified osteoarthritis, unspecified site; I73.9 Peripheral vascular disease, unspecified; E55.9 Vitamin D deficiency, unspecified; F17.200 Nicotine dependence, unspecified, uncomplicated; Z79.891 Long term (current) use of opiate analgesic; Z79.01 Long term (current) use of anticoagulants; Z79.899 Other long term (current) drug therapy; Z86.718 Personal history of other venous thrombosis and embolism; Z86.711 Personal history of pulmonary embolism
CPT/HCPCS: 62323; 64483; 77003; J7120; J3490

== ENCOUNTER → 2019-02-10 13:46 | Outpatient (CLI) | payer MEDICARE, OTHER, SELFPAY ==
[2015-10-31 10:00] VITALS: BMI 34.9
[2019-01-26 11:36] VITALS: BMI 30.4
[2019-02-09 10:00] VITALS: BMI 30.5
[2019-02-10 14:21] LABS: Absolute Lymphocyte Count 1.11 X10^3/uL (0.83-4.51); Absolute Neutrophil Count 5.9 X10^3/uL (2.0-7.7); Basophil# 0.03 X10^3/uL; Basophil% 0.4 % (0-1); Eosinophil# 0.04 X10^3/uL; Eosinophils% 0.5 % (0-5); Hematocrit 21.9 % (40-54); Lymphocyte # 1.11 X10^3/ul (4.0); Lymphocyte % 13.8 % (19-41); Mean Corpuscular Hgb 38.3 pg (27.0-32.0); Mean Corpuscular Volume 119.7 fL (80-94); Mean Platelet Vol. 10.6 fl (6.2-12.0); Monocyte# 0.95 X10^3/uL; Monocyte% 11.8 % (0-10); NRBC Flagged by Analyzer 0.9 % (0-5); Neutrophil # 5.88 X10^3/uL (2.7-7.7); Neutrophil % 72.9 % (47-70); POSITIVE MORPHOLOGY YES; Platelet Count 215 K/mm3 (150-450); RBC Distribution Width CV 20.2 % (11.6-14.6); RBC Distribution Width SD 86.8 fl (35.1-43.9); Red Blood Count 1.83 M/mm3 (4.6-6.2); White Blood Count 8.1 K/mm3 (4.4-11.0)
[2019-02-10 14:28] LABS: Differential Indicated SCAN CRITERIA MET
[2019-02-10 14:38] LABS: BUN 29 mg/dL (7-18); BUN/Creat Ratio 20.9 RATIO (10-20); Calcium,Total 8.2 mg/dL (8.5-10.1); Chloride 104 mmol/L (98-107); Creatinine, Serum 1.39 mg/dL (0.70-1.30); EST Glomerular Filtration Rate 53 mL/min (>60); Est Glom Filt Rate - Afr Amer 64 mL/min (>60); Ferritin 115 ng/mL (26-388); Glucose 100 mg/dL (74-106); Iron 38 ug/dL (65-175); Iron Binding Capacity,Total 196 ug/dL (250-450); PERCENT IRON SATURATION 19.4 % (15.0-55.0); Phosphorus 2.8 mg/dL (2.5-4.9); Potassium 4.3 mmol/L (3.5-5.1); Sodium Level 138 mmol/L (136-145)
[2019-02-10] MEDS: Epoetin Alfa-epbx 40,000 UNIT/ML 36000 UNIT SC (14:53)
[2019-02-10 15:07] VITALS: BP 104/58; PULSE 81; RESP 16; O2SAT 98; BMI 30.5
== END ==
PROVIDERS: Family Provider Family Medicine; PCP Family Medicine; Referring Provider Internal Medicine Nephrology; Visit Provider Internal Medicine Nephrology
DX: N18.3 Chronic kidney disease, stage 3 (moderate) (principal); D63.1 Anemia in chronic kidney disease
CPT/HCPCS: 36415; 80069; 82728; 83540; 83550; 85025; 96372; Q5106

== ENCOUNTER 2019-02-20 12:30 | Outpatient (RCR) | payer MEDICARE, OTHER, SELFPAY ==
[2015-10-31 10:00] VITALS: BMI 34.9
[2019-01-26 11:36] VITALS: BMI 30.4
[2019-02-03 00:32] VITALS: BP 124/70; PULSE 84; RESP 20; TEMP 35.9
[2019-02-06 13:04] VITALS: BP 140/67; PULSE 88; RESP 16; BMI 30.4
--- NOTE | 2019-02-06 13:20 | WC ---
PT REFUSED FOR NURSE TO LOOK AT [facility].
--- NOTE | 2019-02-06 17:58 | PCM.WC.PN ---
(1) Wound, surgical, nonhealing Status: Chronic Current Visit: Yes Qualifiers: Encounter type: subsequent encounter Code(s): T81.89XA - Other complications of procedures, not elsewhere classified, initial encounter (2) Status post lumbar laminectomy Status: Chronic Current Visit: Yes Code(s): Z98.890 - Other specified postprocedural states Type of Wound Date of Service: 02/06/19 Chief Complaint: Nonhealing surgical wound of lower back History of Wound: Mr. Marshall is a 73-yo who has been seen here at the wound center for a nonhealing surgical wound of his lower back s/p surgical debridement for an abscess s/p lumbar spine surgery. His original surgery on his lower back was approximately 2016 and he has had multiple complications since that time. He underwent surgical debridement on 03/04/[address] aDvila at [facility] in [place] and was discharged with a wound vac for healing by secondary intention with possible muscle flap closure in the future. He followed up with his surgeon on 04/18/17 for further evaluation and recommendations and they plan to close the wound with a muscle flap but he continues to develop infections. He is also being seen by Infectious Disease as needed. CT 02/2018 did not show any abscess. Progress of Wound: Cuong is here for follow-up of his nonhealing surgical wound of his lower back. He was ill last week so hasn't been seen foor 2 weeks. He tolerated course of antibiotics and his denies reports decrease in drainage, although drainage is still very heavy. His wound was showing mild improvement with applications of Theraskin but it kept getting infected, so we discontinued this treatment. He continues to have very heavy drainage from his wound. He has had 10 applications of Purapply to his lower back wound with mild improvement which were completed 03/21/2018. Cuong saw the surgeon at [facility] again on August 27, 2018 and he does not think a skin flap would be an option but talked about doing a skin graft from his thigh to the lower back. He has been having increased pain in his back and left leg presumably from nerve impingement. Denies increased drainage, fever or chills. - Physical Exam Vital Signs Temp Pulse Resp BP 96.6 F L 88 16 140/67 H 02/03/19 00:32 02/06/19 13:04 02/06/19 13:04 02/06/19 13:04 General: Alert, Oriented x3, Cooperative, No apparent distress HEENT: Atraumatic, Normocephalic Oral: Moist Mucosa Extremities: Edema Skin: Ulcer/ Wound Wound Measurements and Assessment - Nurse 1 - General Ulcer Measurement Start: 02/06/19 13:03 Freq: Status: Active Protocol: Activity Type Activity Date Activity User E-Sign Co-Sign Detail Recorded Client Recorded Date Recorded By Document 02/06/19 13:04 [facility] [id number] 02/06/19 13:20 BMF 02/06/19 13:04 Wound Center Nurse 1 [Ulcer Assessment] #9 Lower Lumbar- Midline -Combined with other wound No -Current Size (cm) - Length 14.2 -Current Size (cm) - Width 4.3 -Current Size (cm) - Depth 0.2 -Total Square Cm 61.06 -Photo Taken No -Epithelialization None Present -Tunneling No -Undermining/Tunneling No -Circular Undermining No -Exudate Amt Large -Exudate Type Serosanguineous -Wound Margin Thickened & Rolled Under -Granulation Amt Small (1-33%) -Slough/Fibrin Yes -Necrosis Amt Large (67-100%) -Necrotic Tissue Type Adherent Slough -Texture (Uma-wound Skin Appearance) Assessed, Scarring -Moisture (Uma-wound Skin Appearance Assessed ) -Color (Uma-wound Skin Appearance) Assessed -Temperature (Uma-wound Skin No Abnormality Appearance) (Pt Warm) -Tenderness on Palpation (Uma-wound No Skin Appearance) -Ulcer Cleansing SOAP AND WATER -Foul Odor after Cleansing No -Anesthetic Used 4% Lidocaine Solution - Nurse 2 - General Ulcer CM Notes Start: 02/06/19 13:03 Freq: Status: Active Protocol: Activity Type Activity Date Activity User E-Sign Co-Sign Detail Recorded Client Recorded Date Recorded By Document 02/06/19 13:44 MW [id number] 02/06/19 13:59 MW 02/06/19 13:44 Wound Center Nurse 2 [Procedure/Treatment] -Time 13:46 -Correct Patient Yes -Correct Side, Site, Position Yes -Correct Procedure Yes -Procedure Performed Yes -Type of Procedure Debridement -Clinical Debridement Subcutaneous -Post Debridement Size (cm) - Length 12.8 -Post Debridement Size (cm) - Width 3.5 -Post Debridement Size (cm) - Depth 0.4 -Total Square Cm 44.80 -Wound/Ulcer Outcome Not Healed -Ulcer Cleansing Rinsed/ Irrigated with Saline -Foul Odor after Cleansing No -Bioengineered Tissue No -Bleeding Controlled with Pressure -Offloading No -Treatment Response Procedure Tolerated Well [See Physician Procedure note for Specifics] Pain Scale: 0-10 Numeric [Pain] -Is Patient Pain Free? Yes Psych/Mental Status: Normal Affect, Appropriate Debridement Note Post-Debridement Measurements/Treatment WC - Nurse 2 - General Ulcer CM Notes Start: 02/06/19 13:03 Freq: Status: Active Protocol: Activity Type Activity Date Activity User E-Sign Co-Sign Detail Recorded Client Recorded Date Recorded By Document 02/06/19 13:44 MW [id number] 02/06/19 13:59 MW 02/06/19 13:44 Wound Center Nurse 2 #9 Lower Lumbar- Midline -Time 13:46 -Correct Patient Yes -Correct Side, Site, Position Yes -Correct Procedure Yes -Procedure Performed Yes -Type of Procedure Debridement -Clinical Debridement Subcutaneous -Post Debridement Size (cm) - Length 12.8 -Post Debridement Size (cm) - Width 3.5 -Post Debridement Size (cm) - Depth 0.4 -Total Square Cm 44.80 -Wound/Ulcer Outcome Not Healed -Ulcer Cleansing Rinsed/ Irrigated with Saline -Foul Odor after Cleansing No -Bioengineered Tissue No -Bleeding Controlled with Pressure -Offloading No -Treatment Response Procedure Tolerated Well Pain Scale: 0-10 Numeric Is Patient Pain Free? Yes Wound debrided: lower lumbar midline Laterality: Not Applicable Type of Debridement: Excisional debridement Anesthesia Used: 4% Lidocaine Solution Depth: Down to and including healthy tissue, in the subcutaneous layer Percentage of wound debrided: 100 Instrument Used: 7mm curette Tissue Removed: yellow slough, devitalized tissue Severity: Fat Layer Exposed Amount of bleeding with debridement: Moderate Bleeding Controlled with: Compression and gauze, Gel Foam Patient tolerated procedure well Assessment/Plan Active Problems (Last Updated 11/12/18 @ 19:05 by Paloma Jennings) Wound, surgical, nonhealing (Chronic) Status post lumbar laminectomy (Chronic) Assessment: 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 malnutrition. other multiple comorbidities. edema bilateral lower extremities. venous insufficiency. immunocompromised status. Plan: Evaluated Cuong's wound today and debrided his lumbar wound. There has been mild improvement in his wound and no further periwound erythema. He is scheduled to receive an injection for his back/hip pain. Will continue to alternate dressings with Aquacel and acetic acid with Santyl to the base of his wound. Will cover with KerraMaxCare and wound drape with changes once daily for heavy amount of drainage of his lumbar wound. Continue increased protein intake. F/U in [address] Wick.
[2019-02-13 14:06] VITALS: BP 133/85; PULSE 74; RESP 18; BMI 30.4
--- NOTE | 2019-02-13 19:28 | PCM.WC.PN ---
(1) Wound, surgical, nonhealing Status: Chronic Current Visit: Yes Qualifiers: Encounter type: subsequent encounter Code(s): T81.89XA - Other complications of procedures, not elsewhere classified, initial encounter (2) Status post lumbar laminectomy Status: Chronic Current Visit: Yes Code(s): Z98.890 - Other specified postprocedural states Type of Wound Date of Service: 02/13/19 Chief Complaint: Nonhealing surgical wound of lower back History of Wound: Mr. Marshall is a 73-yo who has been seen here at the wound center for a nonhealing surgical wound of his lower back s/p surgical debridement for an abscess s/p lumbar spine surgery. His original surgery on his lower back was approximately 2016 and he has had multiple complications since that time. He underwent surgical debridement on 03/04/[address] Davila at [facility] in [place] and was discharged with a wound vac for healing by secondary intention with possible muscle flap closure in the future. He followed up with his surgeon on 04/18/17 for further evaluation and recommendations and they plan to close the wound with a muscle flap but he continues to develop infections. He is also being seen by Infectious Disease as needed. CT 02/2018 did not show any abscess. Progress of Wound: Cuong is here for follow-up of his nonhealing surgical wound of his lower back. His reports decrease in drainage, although drainage is still very heavy. He has been tolerating dressings of Santyl and acetic acid but he does not wish to continue using Santyl as it is expensive. His wound was showing mild improvement with applications of Theraskin but it kept getting infected, so we discontinued this treatment. He continues to have very heavy drainage from his wound. He has had 10 applications of Purapply to his lower back wound with mild improvement which were completed 03/21/2018. Cuong saw the surgeon at [facility] again on August 27, 2018 and he does not think a skin flap would be an option but talked about doing a skin graft from his thigh to the lower back. He has been having increased pain in his back and left leg presumably from nerve impingement. Denies increased drainage, fever or chills. - Physical Exam Vital Signs Temp Pulse Resp BP 96.6 F L 74 18 133/85 H 02/03/19 00:32 02/13/19 14:06 02/13/19 14:06 02/13/19 14:06 General: Alert, Oriented x3, Cooperative, No apparent distress HEENT: Atraumatic, Normocephalic Oral: Moist Mucosa Extremities: Edema Skin: Ulcer/ Wound Wound Measurements and Assessment WC - Nurse 1 - General Ulcer Measurement Start: 02/06/19 13:03 Freq: Status: Active Protocol: Activity Type Activity Date Activity User E-Sign Co-Sign Detail Recorded Client Recorded Date Recorded By Document 02/13/19 14:06 [id number] 02/13/19 14:09 02/13/19 14:06 Wound Center Nurse 1 [Ulcer Assessment] #9 Lower Lumbar- Midline -Combined with other wound No -Current Size (cm) - Length 12.6 -Current Size (cm) - Width 4.8 -Current Size (cm) - Depth 4 -Total Square Cm 60.48 -Photo Taken No -Epithelialization None Present -Undermining/Tunneling No -Circular Undermining No -Classification - Thickness Full Thickness with Exposed Support Structure -Change in Wound Grade/Stage No Query Text:If change please identify the Stage/Grade in the comment (ie. S2 G3) -Exudate Amt Medium -Exudate Type Serosanguineous -Wound Margin Distinct, Outline Attached -Granulation Amt None Present (0 %) -Granulation Quality N/A -Slough/Fibrin Yes -Necrosis Amt Medium (34-66%) -Necrotic Tissue Type Adherent Slough -Structure Exposed Fascia -Texture (Uma-wound Skin Appearance) No Abnormality, Assessed -Moisture (Uma-wound Skin Appearance No Abnormality, ) Assessed -Color (Uma-wound Skin Appearance) Assessed, Erythema -Temperature (Uma-wound Skin No Abnormality Appearance) (Pt Warm) -Tenderness on Palpation (Uma-wound No Skin Appearance) -Ulcer Cleansing Rinsed/ Irrigated with Saline -Foul Odor after Cleansing No -Anesthetic Used 5% Lidocaine Gel [Edema Assessment] -Lower Limb Edema Present No WC - Nurse 2 - General Ulcer CM Notes Start: 02/06/19 13:03 Freq: Status: Active Protocol: Activity Type Activity Date Activity User E-Sign Co-Sign Detail Recorded Client Recorded Date Recorded By Document 02/13/19 14:38 MW [id number] 02/13/19 14:54 MW 02/13/19 14:38 Wound Center Nurse 2 [Procedure/Treatment] #9 Lower Lumbar- Midline -Time 14:39 -Correct Patient Yes -Correct Side, Site, Position Yes -Correct Procedure Yes -Procedure Performed Yes -Type of Procedure Debridement -Clinical Debridement Subcutaneous -Post Debridement Size (cm) - Length 12.8 -Post Debridement Size (cm) - Width 3.8 -Post Debridement Size (cm) - Depth 0.4 -Total Square Cm 48.64 -Wound/Ulcer Outcome Not Healed -Ulcer Cleansing Rinsed/ Irrigated with Saline -Foul Odor after Cleansing No -Bioengineered Tissue No -Bleeding Controlled with Pressure -Offloading No -Treatment Response Procedure Tolerated Well [See Physician Procedure note for Specifics] Pain Scale: 0-10 Numeric [Pain] -Is Patient Pain Free? Yes Psych/Mental Status: Normal Affect, Appropriate Debridement Note Post-Debridement Measurements/Treatment WC - Nurse 2 - General Ulcer CM Notes Start: 02/06/19 13:03 Freq: Status: Active Protocol: Activity Type Activity Date Activity User E-Sign Co-Sign Detail Recorded Client Recorded Date Recorded By Document 02/06/19 13:44 MW [id number] 02/06/19 13:59 MW Document 02/13/19 14:38 MW [id number] 02/13/19 14:54 MW 02/06/19 02/13/19 13:44 14:38 Wound Center Nurse 2 #9 Lower Lumbar- Midline -Time 13:46 14:39 -Correct Patient Yes Yes -Correct Side, Site, Position Yes Yes -Correct Procedure Yes Yes -Procedure Performed Yes Yes -Type of Procedure Debridement Debridement -Clinical Debridement Subcutaneous Subcutaneous -Post Debridement Size (cm) - Length 12.8 12.8 -Post Debridement Size (cm) - Width 3.5 3.8 -Post Debridement Size (cm) - Depth 0.4 0.4 -Total Square Cm 44.80 48.64 -Wound/Ulcer Outcome Not Healed Not Healed -Ulcer Cleansing Rinsed/ Rinsed/ Irrigated with Irrigated with Saline Saline -Foul Odor after Cleansing No No -Bioengineered Tissue No No -Bleeding Controlled with Pressure Pressure -Offloading No No -Treatment Response Procedure Procedure Tolerated Well Tolerated Well Pain Scale: 0-10 Numeric Is Patient Pain Free? Yes Yes Wound debrided: lower lumbar midline Laterality: Not Applicable Type of Debridement: Excisional debridement Anesthesia Used: 4% Lidocaine Solution Depth: Down to and including healthy tissue, in the subcutaneous layer Percentage of wound debrided: 100 Instrument Used: 7mm curette Tissue Removed: yellow slough, devitalized tissue Severity: Fat Layer Exposed Amount of bleeding with debridement: Mild Bleeding Controlled with: Compression and gauze Patient tolerated procedure well Assessment/Plan Active Problems (Last Updated 11/12/18 @ 19:05 by Paloma Jennings) Wound, surgical, nonhealing (Chronic) Status post lumbar laminectomy (Chronic) Assessment: 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 malnutrition. other multiple comorbidities. edema bilateral lower extremities. venous insufficiency. immunocompromised status. Plan: Evaluated Cuong's wound and debrided his lumbar wound. There has been mild improvement in his wound and no further periwound erythema. Will continue to alternate dressings with Aquacel and acetic acid to the base of his wound. Will cover with KerraMaxCare and wound drape with changes once daily for heavy amount of drainage of his lumbar wound. Continue increased protein intake. F/U in [address] Wick.
[2019-02-20 12:38] VITALS: BP 138/89; PULSE 80; RESP 18; TEMP 36.4; BMI 30.4
--- NOTE | 2019-02-20 18:29 | PCM.WC.PN ---
(1) Wound, surgical, nonhealing Status: Chronic Current Visit: Yes Qualifiers: Encounter type: subsequent encounter Code(s): T81.89XA - Other complications of procedures, not elsewhere classified, initial encounter (2) Status post lumbar laminectomy Status: Chronic Current Visit: Yes Code(s): Z98.890 - Other specified postprocedural states Type of Wound Date of Service: 02/20/19 Chief Complaint: Nonhealing surgical wound of lower back History of Wound: Mr. Marshall is a 73-yo who has been seen here at the wound center for a nonhealing surgical wound of his lower back s/p surgical debridement for an abscess s/p lumbar spine surgery. His original surgery on his lower back was approximately 2016 and he has had multiple complications since that time. He underwent surgical debridement on 03/04/[address] Davila at [facility] in [place] and was discharged with a wound vac for healing by secondary intention with possible muscle flap closure in the future. He followed up with his surgeon on 04/18/17 for further evaluation and recommendations and they plan to close the wound with a muscle flap but he continues to develop infections. He is also being seen by Infectious Disease as needed. CT 02/2018 did not show any abscess. Progress of Wound: Cuong is here for follow-up of his nonhealing surgical wound of his lower back. His reports decrease in drainage, although drainage is still very heavy. He has been tolerating Aquacel and acetic acid dressings. He has been having increased erythema surrounding his wound. His wound was showing mild improvement with applications of Theraskin but it kept getting infected, so we discontinued this treatment. He continues to have very heavy drainage from his wound. He has had 10 applications of Purapply to his lower back wound with mild improvement which were completed 03/21/2018. Cuong saw the surgeon at [facility] again on August 27, 2018 and he does not think a skin flap would be an option but talked about doing a skin graft from his thigh to the lower back. He has been having increased pain in his back and left leg presumably from nerve impingement. Denies increased drainage, fever or chills. - Physical Exam Vital Signs Temp Pulse Resp BP 97.5 F L 80 18 138/89 H 02/20/19 12:38 02/20/19 12:38 02/20/19 12:38 02/20/19 12:38 General: Alert, Oriented x3, Cooperative, No apparent distress HEENT: Atraumatic, Normocephalic Oral: Moist Mucosa Extremities: Edema Skin: Ulcer/ Wound Wound Measurements and Assessment - Nurse 1 - General Ulcer Measurement Start: 02/06/19 13:03 Freq: Status: Active Protocol: Activity Type Activity Date Activity User E-Sign Co-Sign Detail Recorded Client Recorded Date Recorded By Document 02/20/19 12:38 [facility] [id number] 02/20/19 12:49 [facility] 02/20/19 12:38 Wound Center Nurse 1 [Ulcer Assessment] #9 Lower Lumbar- Midline -Combined with other wound No -Current Size (cm) - Length 13.8 -Current Size (cm) - Width 4.5 -Current Size (cm) - Depth 0.2 -Total Square Cm 62.10 -Photo Taken No -Epithelialization None Present -Tunneling No -Undermining/Tunneling No -Circular Undermining No -Exudate Amt Large -Exudate Type Yellow/Green -Wound Margin Thickened & Rolled Under -Granulation Amt Small (1-33%) -Granulation Quality [place] -Slough/Fibrin Yes -Necrosis Amt Large (67-100%) -Necrotic Tissue Type Adherent Slough -Texture (Uma-wound Skin Appearance) Assessed, Excoriation, Scarring,Rash -Moisture (Uma-wound Skin Appearance Assessed ) -Color (Uma-wound Skin Appearance) Assessed, Erythema -Temperature (Uma-wound Skin No Abnormality Appearance) (Pt Warm) -Tenderness on Palpation (Uma-wound Yes Skin Appearance) -Ulcer Cleansing soap and water -Foul Odor after Cleansing No -Anesthetic Used 4% Lidocaine Solution - Nurse 2 - General Ulcer CM Notes Start: 02/06/19 13:03 Freq: Status: Active Protocol: Activity Type Activity Date Activity User E-Sign Co-Sign Detail Recorded Client Recorded Date Recorded By Document 02/20/19 13:14 [id number] 02/20/19 13:18 02/20/19 13:14 Wound Center Nurse 2 [Procedure/Treatment] -Time 13:14 -Correct Patient Yes -Correct Side, Site, Position Yes -Correct Procedure Yes -Procedure Performed Yes -Type of Procedure Debridement -Clinical Debridement Subcutaneous -Post Debridement Size (cm) - Length 13 -Post Debridement Size (cm) - Width 3.7 -Post Debridement Size (cm) - Depth 0.4 -Total Square Cm 48.1 -Wound/Ulcer Outcome Not Healed -Ulcer Cleansing Rinsed/ Irrigated with Saline -Foul Odor after Cleansing No -Bioengineered Tissue No -Bleeding Controlled with Pressure, SURGIFOAM -Offloading No -Treatment Response Procedure Tolerated Well [See Physician Procedure note for Specifics] Pain Scale: 0-10 Numeric [Pain] -Is Patient Pain Free? No Psych/Mental Status: Normal Affect, Appropriate Debridement Note Post-Debridement Measurements/Treatment WC - Nurse 2 - General Ulcer CM Notes Start: 02/06/19 13:03 Freq: Status: Active Protocol: Activity Type Activity Date Activity User E-Sign Co-Sign Detail Recorded Client Recorded Date Recorded By Document 02/06/19 13:44 MW [id number] 02/06/19 13:59 MW Document 02/13/19 14:38 MW [id number] 02/13/19 14:54 MW Document 02/20/19 13:14 [id number] 02/20/19 13:18 02/06/19 02/13/19 02/20/19 13:44 14:38 13:14 Wound Center Nurse 2 #9 Lower Lumbar- Midline -Time 13:46 14:39 13:14 -Correct Patient Yes Yes Yes -Correct Side, Site, Position Yes Yes Yes -Correct Procedure Yes Yes Yes -Procedure Performed Yes Yes Yes -Type of Procedure Debridement Debridement Debridement -Clinical Debridement Subcutaneous Subcutaneous Subcutaneous -Post Debridement Size (cm) - Length 12.8 12.8 13 -Post Debridement Size (cm) - Width 3.5 3.8 3.7 -Post Debridement Size (cm) - Depth 0.4 0.4 0.4 -Total Square Cm 44.80 48.64 48.1 -Wound/Ulcer Outcome Not Healed Not Healed Not Healed -Ulcer Cleansing Rinsed/ Rinsed/ Rinsed/ Irrigated with Irrigated with Irrigated with Saline Saline Saline -Foul Odor after Cleansing No No No -Bioengineered Tissue No No No -Bleeding Controlled with Pressure Pressure Pressure, SURGIFOAM -Offloading No No No -Treatment Response Procedure Procedure Procedure Tolerated Well Tolerated Well Tolerated Well Pain Scale: 0-10 Numeric Is Patient Pain Free? Yes Yes No Wound debrided: lower lumbar midline Laterality: Not Applicable Type of Debridement: Excisional debridement Anesthesia Used: 4% Lidocaine Solution Depth: Down to and including healthy tissue, in the subcutaneous layer Percentage of wound debrided: 100 Instrument Used: 7mm curette Tissue Removed: yellow slough, devitalized tissue Severity: Fat Layer Exposed Amount of bleeding with debridement: Mild Bleeding Controlled with: Compression and gauze Patient tolerated procedure well Assessment/Plan Active Problems (Last Updated 11/12/18 @ 19:05 by Paloma Jennings) Wound, surgical, nonhealing (Chronic) Status post lumbar laminectomy (Chronic) Assessment: 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 malnutrition. other multiple comorbidities. edema bilateral lower extremities. venous insufficiency. immunocompromised status. Plan: Evaluated Cuong's wound and debrided his lumbar wound. There has been mild improvement in his wound but has developed periwound erythema again. Will continue to alternate dressings with Aquacel and acetic acid to the base of his wound. Will cover with KerraMaxCare and wound drape with changes once daily for heavy amount of drainage of his lumbar wound. Continue increased protein intake. F/U in [address] Wick.
== END 2019-03-05 23:59 ==
LOC: WC 12:30
PROVIDERS: Family Provider Family Medicine; PCP Family Medicine; Referring Provider Family Medicine; Visit Provider Family Medicine
DX: T81.30XA Disruption of wound, unspecified, initial encounter (principal); Y83.8 Other surgical procedures as the cause of abnormal reaction of the patient, or of later complication, without mention of misadventure at the time of the procedure; I87.2 Venous insufficiency (chronic) (peripheral)
CPT/HCPCS: 11042; 11045

== ENCOUNTER → 2019-02-23 13:53 | Outpatient (CLI) | payer MEDICARE, OTHER, SELFPAY ==
[2015-10-31 10:00] VITALS: BMI 34.9
[2019-02-09 10:00] VITALS: BMI 30.5
[2019-02-20 12:38] VITALS: BMI 30.4
[2019-02-23 14:11] LABS: Hematocrit 22.8 % (40-54)
[2019-02-23 14:20] VITALS: BP 122/74; PULSE 78; RESP 16; TEMP 36.7; O2SAT 98; BMI 30.4
[2019-02-23] MEDS: Epoetin Alfa-epbx 40,000 UNIT/ML 36000 UNIT SC (14:31)
== END ==
PROVIDERS: Family Provider Family Medicine; PCP Family Medicine; Referring Provider Internal Medicine Nephrology; Visit Provider Internal Medicine Nephrology
DX: N18.3 Chronic kidney disease, stage 3 (moderate) (principal); D63.1 Anemia in chronic kidney disease
CPT/HCPCS: 85014; 85018; 96372; Q5106

== ENCOUNTER 2019-02-28 17:41 | Inpatient (IN) | payer MEDICARE, OTHER, SELFPAY ==
[2015-10-31 10:00] VITALS: BMI 34.9
[2019-02-23 14:20] VITALS: BMI 30.4
[2019-02-28 17:42] VITALS: BP 132/68; PULSE 82; RESP 16; TEMP 36.1; O2SAT 93; BMI 30.7
[2019-02-28 17:50] VITALS: BMI 34.6
--- NOTE | 2019-02-28 18:09 | RAD_ITS ---
STUDY: X-RAY CHEST REASON FOR EXAM: Male, 73 years old. Chest pain and SOB. TECHNIQUE: Portable chest. COMPARISON: 06/18/2018. FINDINGS: Low lung volumes on the right. The lungs are clear and expanded. There is no demonstrated pleural abnormality. Normal size heart. Normal mediastinum and raquel. Normal visualized pulmonary arteries. Normal visualized aortic arch and descending thoracic aorta. Normal visualized thoracic spine. Normal visualized ribs, clavicles, and shoulders. There is no demonstrated abnormality of the visualized soft tissue structures of the upper abdomen. RAD/Chest 1 View (Portable) IMPRESSION: No acute findings. Electronically Signed: Ailyn Garcia MD at 19:14 EDT Tel , Service support ,
--- NOTE | 2019-02-28 18:09 | EKG12_ITS ---
Test Reason : EDEMA Blood Pressure : / mmHG Vent. Rate : 079 BPM Atrial Rate : 079 BPM P-R Int : 186 ms QRS Dur : 140 ms QT Int : 400 ms P-R-T Axes : 009 -52 -06 degrees QTc Int : 458 ms Normal sinus rhythm Right bundle branch block Left anterior fascicular block Bifascicular block Abnormal ECG Confirmed by SHAYLA HAYES, ANGEL ([id number]), manuscript editor MADDISON ROSA ([id number]) on 03/03/2019 11:22:18 AM Referred By: ANN Confirmed By:ANGEL MCGUIRE MD
--- NOTE | 2019-02-28 18:10 | ED.DCSUM_ITS ---
- ER Visit Summary Date of Service: 02/28/19 Chief Complaint: Bilateral leg swelling intermittent shortness of breath History of Present Illness: The patient is a 73 M 3 of anemia, A. fib, CHF, renal insufficiency and prior lymphoma in 2002 which is reportedly resolved. Patient had a prior splenectomy and partial colon resection. Patient states that for the last several days he has had increasing swelling both lower extremities and intermittent shortness of breath. No chest pain. No fever or chills. Has not been hospitalized recently. He states he has never been hospitalized for CHF. He is on furosemide and his primary care physician recently increased it. That has been now for 5 days and is progressively getting worse. Patient states he normally weighs around 202 pounds and we have his weight at 227 pounds currently. About 25 pounds of water weight. Physical Examination: Older male no acute distress coming by family. Vital signs stable afebrile. Pulse ox 93% on room air no signs of hypoxia. HEENT exam unremarkable. Neck nontender no JVD. Lungs clear to auscultation bilaterally. Heart regular rhythm no murmur. Rate about 80 abdomen soft nontender normal bowel sounds no peritoneal signs. Extremities moves all 4. 1+ pitting edema both lower extremities. Equal symmetrical. Calves nontender no cords. Neurologically awake alert with no focal motor deficits. Test Results:. Chronic changes. Cardiomegaly. Elevated right hemidiaphragm. EKG sinus rhythm rate of 79 with a right bundle and left anterior fascicular block. No acute change from a prior EKG from June. White count 6. Hemoglobin is 7 that is his baseline chronic anemia. Electrolytes unremarkable gap of 9. BUN of 41 creatinine 1.48 along his baseline also. He has chronic renal insufficiency. Troponin normal. BNP 1203. Emergency Department Course and Treatment: Elderly male with intermittent mild shortness of breath and bilateral lower extremity edema. Patient is elderly and progressively worse in spite of his home diuretic dose being increased for 5+ days. He is also put on about 25 pounds of fluid weight. He and I and his discussed his care and labs and I will speak to the hospitalist about admission for IV diuretics. Treatment Plan: Patient will be given a dose of IV Lasix prior to admission. Disposition: Admission Impression: Bilateral pedal edema Progressively worsening CHF with outpatient failure History of cardiomyopathy with an EF of 25% Chronic anemia Chronic renal sufficiency This note was generated with [employer] dictation software. It may contain incorrect words, spelling, and punctuation that were not noted in review of the chart prior to signing ED Disposition - Plan for ED Patient: Referrals: Bernardo Lawson DO [Primary Care Provider] -
[2019-02-28 18:39] LABS: Absolute Lymphocyte Count 0.99 X10^3/uL (0.83-4.51); Basophil# 0.05 X10^3/uL; Basophil% 0.8 % (0-1); Eosinophil# 0.17 X10^3/uL; Eosinophils% 2.6 % (0-5); Hematocrit 23.1 % (40-54); Hemoglobin 7.1 g/dL (13.0-16.5); Lymphocyte # 0.99 X10^3/ul (4.0); Lymphocyte % 15.2 % (19-41); Mean Corp Hgb Conc 30.7 g/dL (32-36); Mean Corpuscular Hgb 37.8 pg (27.0-32.0); Mean Corpuscular Volume 122.9 fL (80-94); Mean Platelet Vol. 10.8 fl (6.2-12.0); Monocyte# 1.25 X10^3/uL; Monocyte% 19.2 % (0-10); Neutrophil # 4.01 X10^3/uL (2.7-7.7); Neutrophil % 61.6 % (47-70); POSITIVE MORPHOLOGY YES; Platelet Count 202 K/mm3 (150-450); RBC Distribution Width CV 20.5 % (11.6-14.6); RBC Distribution Width SD 89.5 fl (35.1-43.9); Red Blood Count 1.88 M/mm3 (4.6-6.2); White Blood Count 6.5 K/mm3 (4.4-11.0)
[2019-02-28 18:40] LABS: Differential Indicated SCAN CRITERIA MET; NRBC Flagged by Analyzer 2.2 % (0-5)
[2019-02-28 18:57] LABS: Anion Gap 9 (5-15); BUN 41 mg/dL (7-18); BUN/Creat Ratio 27.7 RATIO (10-20); Calcium,Total 8.1 mg/dL (8.5-10.1); Chloride 102 mmol/L (98-107); Creatinine, Serum 1.48 mg/dL (0.70-1.30); EST Glomerular Filtration Rate 49 mL/min (>60); Est Glom Filt Rate - Afr Amer 60 mL/min (>60); Estimated Creatinine Clearance 42.36 ml/min; Glucose 90 mg/dL (74-106); Potassium 4.4 mmol/L (3.5-5.1); Sodium Level 138 mmol/L (136-145)
[2019-02-28 19:08] LABS: BNP,B-Type NATRIURETIC PEPTIDE 1203.5 pg/mL (0-100)
[2019-02-28 19:14] LABS: Platelet Estimate ADEQUATE (ADEQ)
[2019-02-28 19:15] LABS: Anisocytosis 3+; Macrocytosis 4+; Target Cells 1+
[2019-02-28 19:17] LABS: Hypochromasia 1+
[2019-02-28 19:24] LABS: Differential Comment SCANNED
--- NOTE | 2019-02-28 19:25 | HP.PCM_ITS ---
Problem List (1) Systolic heart failure Status: Acute History of Present Illness Date of Admission: 02/28/19 Chief Complaint: Bilateral leg swelling The patient is a 73 year old M with a significant history of Hepatic cirrhosis; tobacco abuse; alcoholism; HTN; CKD and paroxysmal Afib who presented to the emergency department with increased swelling of his bilateral legs that started about 5 days ago. Associated with his symptoms is shortness of breath. He has some shortness of breath at rest which markedly increases with exertion. He denies orthopnea or paroxysmal nocturnal dyspnea. He reports about 20 pounds weight gain in 1 week. He is not on home oxygen. He reported that although his Lasix has been increased to 20 mg p.o. thrice daily at home his symptoms has progressively worsened. At the emergency department his BNP was found to be severely elevated. Past Medical History Past Medical History (Chronic Problems): Chronic Problems (Last Reviewed 02/28/19 @ 22:50 by Nate Mead MD) Wound, surgical, nonhealing (Chronic) Status post lumbar laminectomy (Chronic) Cardiomyopathy in diseases classified elsewhere (Chronic) Essential (primary) hypertension (Chronic) Secondary pulmonary arterial hypertension (Chronic) PSVT (paroxysmal supraventricular tachycardia) (Chronic) Paroxysmal atrial fibrillation (Chronic) Pulmonary embolism (Chronic) Hyperlipidemia (Chronic) Medical History: Medical History (Last Reviewed 02/28/19 @ 22:50 by Nate Mead MD) Cardiomyopathy in diseases classified elsewhere (Chronic) I43 Essential (primary) hypertension (Chronic) I10 Secondary pulmonary arterial hypertension (Chronic) I27.21 PSVT (paroxysmal supraventricular tachycardia) (Chronic) I47.1 Paroxysmal atrial fibrillation (Chronic) I48.0 Pulmonary embolism (Chronic) I26.99 Hyperlipidemia (Chronic) E78.5 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 G06.1 Aortic root dilatation I77.810 Ascending aorta dilatation I77.810 Ascites R18.8 Candidal dermatitis B37.2 Cellulitis and abscess of trunk L03.319, L02.219 Chronic kidney disease N18.9 Chronic ulcer of right leg with fat layer exposed L97.912 Edema of lower extremity R60.0 Gout M10.9 Hepatic cirrhosis K74.60 History of DVT (deep vein thrombosis) Z86.718 History of diverticulitis Z87.19 History of non-Hodgkin's lymphoma Z85.72 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 for treatment of lymphoma Lumbar disc disease M51.9 Lymphedema I89.0 Non-Hodgkin lymphoma C85.90 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 of necrosis L98.496 nonhealing ulcer lumbar back area Nonhealing surgical wound T81.89XA MARY JANE (obstructive sleep apnea) G47.33 Open wound of lower back S31.000A with muscle and bone exposed s/p surgical debridement of abscess s/p lumbar spine surgery Open wound of lower back S31.000A Osteomyelitis M86.9 Osteomyelitis of lumbar spine M46.26 Pericardial effusion I31.3 Peripheral vascular disease I73.9 Venous stasis ulcer of heel with fat layer exposed I83.004, L97.402 Allergies chlorthalidone Allergy (Verified 02/28/19 17:52) Unknown ramipril [From Altace] Allergy (Verified 02/28/19 17:52) Unknown sulfamethoxazole [From Bactrim] Allergy (Verified 02/28/19 17:52) Other trazodone Allergy (Verified 02/28/19 17:52) Unknown trimethoprim [From Bactrim] Allergy (Verified 02/28/19 17:52) Other prednisone Adverse Reaction (Verified 02/28/19 17:52) Swelling Home Medications: Ambulatory Orders Medication Instructions Recorded Folic Acid 1 mg PO DAILY@0800 02/05/16 Magnesium Oxide [Magnesium] 400 mg PO DAILY@0800 02/05/16 Gabapentin [Neurontin] 300 mg PO DAILY 07/04/17 Vit C/E/Zn/Coppr/Lutein/Zeaxan 1 ea PO BID 07/04/17 [Preservision Areds 2 Softgel] apixaban 5 mg tablet 2.5 mg PO BID tab 08/27/17 ferrous fumarate 325 mg (106 mg 325 mg PO BID tab 08/27/17 iron) tablet Acetaminophen [Tylenol Arthritis] 1,300 mg PO PRN PRN 06/02/18 Hydromorphone HCl 4 - 8 mg PO Q4H PRN PRN 06/02/18 fentaNYL patch [Duragesic Patch] 100 mcg TRANSDERM. Q72H PRN 06/02/18 Potassium Chloride [K-Dur] 20 meq PO DAILY #30 tablet 06/07/18 Furosemide [Lasix] 20 mg PO TID 06/16/18 Acetaminophen [Tylenol Tablet] 650 mg PO Q6H PRN PRN tablet 06/18/18 atorvastatin 20 mg tablet 20 mg PO QHS #90 tab 07/14/18 metoprolol succinate ER 25 mg 12.5 mg PO BID #45 tab 09/25/18 tablet,extended release 24 hr Gabapentin 600 mg PO QHS 02/28/19 Surgical History: Surgical History (Last Reviewed 03/01/19 @ 01:06 by Nate Mead MD) History of laminectomy Z98.890 History of splenectomy Z90.81 Surgical History: colectomy - Partial., - - Splenectomy, Ileostomy reversal, L4- 5 discectomy. Wound debridement 03/04/2017, 05/14/2017 at [facility]> Psychiatric History: No pertinent psych hx Lives: Spouse/ Significant Other Smoking Status: Current some day smoker Tobacco Use: Cigars - *Family History Maternal Family History: Family History (Last Reviewed 03/01/19 @ 01:06 by Nate Mead MD) Father Diabetes Heart disease Mother Heart disease History Items: Heart Disease Paternal Family History: Family History (Last Reviewed 03/01/19 @ 01:06 by Nate Mead MD) Father Diabetes Heart disease Mother Heart disease History Items: Diabetes Review of Systems Constitutional: Reports: Weight Change - Reports about 20 pound weight gain within 1 week.. Denies: Chills, Fever HEENT: Denies: Head Aches, Sinus Congestion, Sinus Drainage Cardiovascular: Reports: Edema. Denies: Chest Pain, Palpitations Respiratory: Reports: Shortness of Breath, Shortness of breath at rest, Shortness of breath upon exertion. Denies: Cough, Sputum production Gastrointestinal: Denies: Abdominal Pain, Nausea, Vomiting Genitourinary: Denies: Dysuria Musculoskeletal: Denies: Joint Pain, Joint Tenderness Skin: Denies: Rash, Wounds Neurological: Denies: Numbness, Tingling, Focal weakness Psychiatric: Denies: Anxiety, Depression, Homicidal Ideations, Suicidal Ideations Hematologic/ Lymphatic: Denies: Easy Bruising, Easy Bleeding VTE Information - Inpt Only VTE Present on Admission: No VTE Mechan Device Prophylaxis: None VTE Pharm Prophylaxis ordered?: No Reason prophylaxis not ordered:: Treatment Not Indicated - Apixaban continued Patient Problems: Active and Suspected Problems (Last Reviewed 02/28/19 @ 22:50 by Nate Mead MD) Systolic heart failure (Acute) - Physical Exam Vitals/I&O's: Vital Signs Temp Pulse Resp BP Pulse Ox 97.0 F L 82 16 132/68 H 93 02/28/19 17:42 02/28/19 17:42 02/28/19 17:42 02/28/19 17:42 02/28/19 17:42 Oxygen Delivery Method Room Air Weight: 103.2 kg Body Mass Index (BMI) 34.6 General: Alert, Oriented x3, Cooperative HEENT: Atraumatic, PERRLA, EOMI, Normocephalic Neck: Supple, No JVD, Negative Carotid Bruits Lungs: Clear to auscultation, Normal air movement Cardiovascular: Regular rate, No murmurs Abdomen: Bowel Sounds Present, Soft, Non Tender Extremities: Capillary Refill Less than 3 Seconds, Edema - +1 on feet. His bilateral legs and feet feet is erythematous and tight. Skin: No rashes, No breakdown, - - His bilateral legs and feet feet is erythematous and tight. Musculoskeletal: No Tenderness to Palpation of Joints or Extremities, Tenderness - Bilateral legs and feet Neurological: Cranial nerves II-XII grossly intact Psych/Mental Status: Normal Affect, Appropriate Laboratory Results 02/28/19 18:30: WBC 6.5, RBC 1.88 L, Hgb 7.1 L, Hct 23.1 L, MCV 122.9 H, MCH 37.8 H, MCHC 30.7 L, RDW Std Deviation 89.5 H, RDW Coeff of Reggie 20.5 H, Plt Count 202, MPV 10.8, Immature Gran % (Auto) 0.600, Neut % (Auto) 61.6, Lymph % (Auto) 15.2 L, [place] % (Auto) 19.2 H, Eos % (Auto) 2.6, Baso % (Auto) 0.8, Absolute Neuts (auto) 4.0, Absolute Lymphs (auto) 0.99, Nucleated RBC % 2.2, Differential Comment SCANNED, Diff Path Review September, Platelet Estimate AD EQUATE, Hypochromasia 1+, Anisocytosis 3+, Macrocytosis 4+, Target Cells 1+ 02/28/19 18:30: Sodium 138, Potassium 4.4, Chloride 102, Carbon Dioxide 27.0, Anion Gap 9, BUN 41 H, Creatinine 1.48 H, Estim Creat Clear Calc 42.36, Est GFR (MDRD) Af Amer 60, Est GFR (MDRD) Non-Af 49 L, BUN/Creatinine Ratio 27.7 H, Glucose 90, Calcium 8.1 L, Troponin I 0.016 02/28/19 18:30: B-Natriuretic Peptide 1203.5 H Assessment/Plan All Active Problems (Last Reviewed 02/28/19 @ 22:50 by Nate Mead MD) Systolic heart failure (Acute) The patient is a 73 year old M with a significant history of Hepatic cirrhosis; tobacco abuse; alcoholism; HTN; CKD and paroxysmal Afib who presented to the emergency department with increased swelling of his bilateral legs; increasing weight; shortness of breath and found to have elevated BNP consistent with acute on chronic systolic heart failure. Acute on chronic systolic heart failure Reported increased leg swelling and shortness of breath. BNP on presentation was 1,203.5. Review of previous records shows severely elevated BNP on presentation compared to previous. Chest x-ray did not show any acute pathology Echocardiogram on 06/03/2018 showed an ejection fraction of 25% with multiple areas of hypokinesia. Moderately dilated right ventricle. Moderate global right ventricular systolic dysfunction. Left atrium was moderately enlarged. Right atrium was moderately enlarged. Moderate 2+ tricuspid valve insufficiency. Right ventricular systolic pressure was estimated to be 36 mmHg. Received Lasix 40 mg IV push x1. Continue patient on Lasix 40 mg IV twice daily. Will continue home potassium supplementation. Place on monitored bed on PCU Weight on admission to the floor; and then daily Strict I&O's EKG independently reviewed confirms bifascicular block. Left axis deviation and right bundle branch block. Monitor electrolytes Trend blood pressure Metoprolol continued. Of note patient has allergy to ramipril. Patient may be a candidate for other guideline directed heart failure medications and/or pacemaker. Patient may need to follow-up with family development extension specialist at least on discharge. He may be a candidate for other guideline CHF medication and/or pacemaker. Titrate diuretics and heart failure/blood pressure medications with blood pressure. His bilateral legs do not look overly edematous; no need for Kerlix roll and teetee wrap to bilateral lower extremities. His bilateral legs rather looks tight with very minimal pitting edema, not more than 1+ Chronic anemia On presentation his hemoglobin was 7.1. Of note patient take routine shots (?epogen) CBC in a.m. Consider transfusion if hemoglobin is 7 or less than 8 and patient continues to have shortness of breath. Will type and screen Proximal A. fib On presentation patient was in sinus rhythm Apixaban continued. Metoprolol continued Alcoholism Reported he drinks about 5 glasses of vodka per day. Will put on CIWA protocol with as needed Ativan; multivitamin; and thiamine. Continue home folic acid. CKD stage III Stable Tobacco abuse Previously he used to smoke cigarettes. Now he has quit smoking cigarettes. Occasionally he smokes cigars. Counseled. DVT prophylaxis Not indicated since patient is on is about eliquis for A. fib. Eliquis continued. Code Visit Inpatient E&M: 04279 Init Hosp L3
[2019-02-28] MEDS: Furosemide 40 MG/4 ML Vial IV (19:36)
[2019-02-28 19:44] VITALS: PULSE 83
[2019-02-28 20:05] VITALS: BMI 33.6; BMI 34.6
[2019-02-28 20:50] VITALS: BP 134/64; PULSE 88; RESP 18; TEMP 37; O2SAT 99
[2019-02-28 21:08] VITALS: O2SAT 99
[2019-02-28] MEDS: APIXABAN 2.5 MG TABLET PO (21:10)
[2019-02-28] MEDS: Atorvastatin Calcium 20 MG Tablet PO (21:10)
[2019-02-28] MEDS: HYDROmorphone 2 MG TABLET 8 MG PO (21:11)
[2019-02-28] MEDS: Gabapentin 600 MG Tablet PO (22:06)
[2019-03-01] VITALS (17 sets, daily range): BP systolic 109–127; BP diastolic 51–80; PULSE 78–151; RESP 16–18; TEMP 36.3–37; O2SAT 95–100
[2019-03-01 06:38] LABS: Absolute Lymphocyte Count 1.05 X10^3/uL (0.83-4.51); Absolute Neutrophil Count 3.4 X10^3/uL (2.0-7.7); Basophil# 0.05 X10^3/uL; Basophil% 0.8 % (0-1); Eosinophil# 0.16 X10^3/uL; Eosinophils% 2.7 % (0-5); Hematocrit 20.6 % (40-54); Hemoglobin 6.6 g/dL (13.0-16.5); Lymphocyte # 1.05 X10^3/ul (4.0); Lymphocyte % 17.8 % (19-41); Mean Corpuscular Hgb 38.6 pg (27.0-32.0); Mean Corpuscular Volume 120.5 fL (80-94); Mean Platelet Vol. 11.2 fl (6.2-12.0); Monocyte# 1.16 X10^3/uL; Monocyte% 19.7 % (0-10); Neutrophil # 3.43 X10^3/uL (2.7-7.7); Neutrophil % 58.3 % (47-70); POSITIVE MORPHOLOGY YES; Platelet Count 182 K/mm3 (150-450); RBC Distribution Width CV 20.3 % (11.6-14.6); RBC Distribution Width SD 88.2 fl (35.1-43.9); Red Blood Count 1.71 M/mm3 (4.6-6.2); White Blood Count 5.9 K/mm3 (4.4-11.0)
[2019-03-01 06:43] LABS: Differential Indicated SCAN CRITERIA MET; NRBC Flagged by Analyzer 2.4 % (0-5)
[2019-03-01 06:50] LABS: Anion Gap 5 (5-15); BUN 40 mg/dL (7-18); BUN/Creat Ratio 27.8 RATIO (10-20); Calcium,Total 7.6 mg/dL (8.5-10.1); Chloride 103 mmol/L (98-107); Creatinine, Serum 1.44 mg/dL (0.70-1.30); EST Glomerular Filtration Rate 51 mL/min (>60); Est Glom Filt Rate - Afr Amer 62 mL/min (>60); Estimated Creatinine Clearance 43.54 ml/min; Glucose 87 mg/dL (74-106); Potassium 3.9 mmol/L (3.5-5.1); Sodium Level 140 mmol/L (136-145)
[2019-03-01] MEDS: Acetaminophen 325 MG Tablet 650 MG PO ×3 (07:01→21:53)
[2019-03-01 07:15] LABS: Anisocytosis 2+; Hypochromasia 3+; Macrocytosis 2+; Platelet Estimate ADEQUATE (ADEQ); Target Cells RARE
[2019-03-01 08:08] LABS: Iron 57 ug/dL (65-175); Iron Binding Capacity,Total 187 ug/dL (250-450); PERCENT IRON SATURATION 30.5 % (15.0-55.0)
[2019-03-01] MEDS: APIXABAN 2.5 MG TABLET PO ×2 (08:31→21:53)
[2019-03-01] MEDS: Magnesium Oxide 400 MG Tablet PO (08:31)
[2019-03-01] MEDS: Thiamine Hydrochloride 100 MG Tablet PO (08:31)
[2019-03-01] MEDS: Multivitamins,Ther W-Minerals Tablet 1 TABLET PO (08:31)
[2019-03-01] MEDS: Folic Acid 1 MG Tablet PO (08:31)
[2019-03-01] MEDS: Gabapentin 300 MG Capsule PO (08:33)
[2019-03-01] MEDS: Furosemide 40 MG/4 ML Vial IV ×2 (08:33→17:22)
[2019-03-01] MEDS: Metoprolol(XL)Succ 25 MG Tablet 12.5 MG PO (08:34)
[2019-03-01] MEDS: 0.9% Saline Lock 10 ML Syringe IV ×2 (08:35→17:22)
[2019-03-01] MEDS: HYDROmorphone 2 MG TABLET 8 MG PO ×2 (09:33→17:40)
--- NOTE | 2019-03-01 10:38 | ECHOD_ITS ---
Reason For Study: CHF Procedure This was a 2D Doppler, Color Flow transthoracic echocardiogram. Exam performed portable in patient room. Left Ventricle Normal LV size. Mild concentric left ventricular hypertrophy. The estimated ejection fraction is 55 %. Left ventricular systolic function is lower limits of normal. No regional wall motion abnormalities noted. Right Ventricle Moderately dilated right ventricle. Mild to moderate global right ventricular systolic dysfunction. Atria The left atrium is severely enlarged. The right atrium is moderately enlarged. Mitral Valve Normal mitral valve. Tricuspid Valve Normal tricuspid valve. Moderate (2+) eccentric tricuspid valve insufficiency. Pulmonary artery systolic pressure is 46 mmHg. Aortic Valve Trisinus/trileaflet aortic valve. Moderate focal aortic valve calcification. Aortic sclerosis, no stenosis. Pulmonic Valve Normal pulmonic valve. Great Vessels Mildly dilated aortic root. The pulmonary artery is normal size. Normal inferior vena cava. Pericardium/Pleural No pericardial effusion. MMode/2D Measurements & Calculations LVIDd: 5.4 cm IVSd: 1.4 cm Ao root diam: 3.8 cm LVIDs: 4.2 cm LVPWd: 1.3 cm RVDd: 4.5 cm FS: 22.3 % LAV(MOD-bp): 107.0 ml LA A4 area: 31.1 cm2 LA dimension(2D): 5.3 cm LAV(MOD-bp) Indexed: 50.1 ml/m2 LAV(MOD-sp2): 89.5 ml LAV(MOD-sp4): 123.2 ml RA A4 area: 25.2 cm2 Time Measurements MV dec time: 0.18 sec Doppler Measurements & Calculations MV E max real: 134.9 cm/sec Lat Peak E' Real: 10.1 cm/sec Med Peak E' Real: 6.5 cm/sec MV A max real: 102.4 cm/sec E/E' lat: 13.3 E/E' med: 20.9 MV E/A: 1.3 Ao V2 max: 203.7 cm/sec LV V1 max: 126.0 cm/sec PA V2 max: 109.0 cm/sec Ao max P.6 mmHg LV V1 max P.3 mmHg Ao V2 mean: 135.6 cm/sec LV V1 mean P.2 mmHg Ao mean P.1 mmHg LV V1 mean: 84.6 cm/sec Ao V2 VTI: 39.7 cm LV V1 VTI: 25.2 cm TR max real: 316.3 cm/sec TR max P.7 mmHg Interpretation Summary Normal LV size. Mild concentric left ventricular hypertrophy. The estimated ejection fraction is 55 %. Left ventricular systolic function is lower limits of normal. Moderate (2+) eccentric tricuspid valve insufficiency. Pulmonary artery systolic pressure is 46 mmHg. Moderate focal aortic valve calcification. Aortic sclerosis, no stenosis. Compared to previous study, the left ventricular systolic function has improved.. Ordering Physician: Bernardo Bray Referring Physician: Bernardo Lawson Performed By: Rbuia Coelho RDCS, RVT
--- NOTE | 2019-03-01 13:41 | PN_ITS ---
Patient Problems: Active and Suspected Problems (Last Reviewed 02/28/19 @ 22:50 by Nate Mead MD) Systolic heart failure (Acute) Subjective: Patient was seen and examined today, his was present during my examination. Patient states his breathing is improved since admission. Patient is currently on 2 L via nasal cannula. I discussed his medical condition with him and his today, the patient stated that he was not aware that his EF was 25%, he remembers seeing cardiology early this year but states he was not given an appointment to return for another visit. Patient states that he has chronic lower leg edema. Patient underwent cardioversion earlier this year. - Physical Exam Vitals/I&O's: Vital Signs Temp Pulse Resp BP Pulse Ox 97.9 F 86 16 121/55 H 99 03/01/19 13:11 03/01/19 13:11 03/01/19 13:11 03/01/19 13:11 03/01/19 13:11 Oxygen Flow Rate (L/min) 2 Oxygen Delivery Method Nasal Cannula Weight: 100.8 kg Body Mass Index (BMI) 33.6 Intake and Output for Last 24 Hours 02/27/19 02/28/19 03/01/19 23:59 23:59 23:59 Intake Total 500 / 500 Output Total 1500 / 1500 Balance -1000 / -1000 General: Alert, Oriented x3, Cooperative, No apparent distress, Well developed HEENT: Atraumatic, PERRLA, EOMI, Normocephalic Oral: Moist Mucosa Neck: Supple, Trachea Midline, Thyroid Normal Size and Texture Lungs: Clear to auscultation, No rhonchi, No wheeze, No rales, Diminished Cardiovascular: Regular rate, Regular Rhythm, Normal S1, Normal S2, No murmurs, No Ectopic Activity, PMI Normal, No rub noted, No Gallop Abdomen: Bowel Sounds Present, Soft, Non Tender, Non-Distended Extremities: Capillary Refill Less than 3 Seconds, Edema - There is noted to be +2 mm pitting edema in the pretibial areas bilaterally and the ankles bilaterally Skin: No rashes, No breakdown Musculoskeletal: No Tenderness to Palpation of Joints or Extremities Neurological: Cranial nerves II-XII grossly intact, Neuro grossly intact, Sensory exam intact to light touch and pain, Coordination normal Psych/Mental Status: Normal Affect, Appropriate, Alert and oriented to time, place, person, mood and affect Laboratory Results 02/28/19 18:30: WBC 6.5, RBC 1.88 L, Hgb 7.1 L, Hct 23.1 L, MCV 122.9 H, MCH 37.8 H, MCHC 30.7 L, RDW Std Deviation 89.5 H, RDW Coeff of Reggie 20.5 H, Plt Count 202, MPV 10.8, Immature Gran % (Auto) 0.600, Neut % (Auto) 61.6, Lymph % (Auto) 15.2 L, [place] % (Auto) 19.2 H, Eos % (Auto) 2.6, Baso % (Auto) 0.8, Absolute Neuts (auto) 4.0, Absolute Lymphs (auto) 0.99, Nucleated RBC % 2.2, Differential Comment SCANNED, Diff Path Review September, Platelet Estimate ADEQUATE, Hypochromasia 1+, Anisocytosis 3+, Macrocytosis 4+, Target Cells 1+ 02/28/19 18:30: Sodium 138, Potassium 4.4, Chloride 102, Carbon Dioxide 27.0, Anion Gap 9, BUN 41 H, Creatinine 1.48 H, Estim Creat Clear Calc 42.36, Est GFR (MDRD) Af Amer 60, Est GFR (MDRD) Non-Af 49 L, BUN/Creatinine Ratio 27.7 H, Glucose 90, Calcium 8.1 L, Troponin I 0.016 02/28/19 18:30: B-Natriuretic Peptide 1203.5 H 02/28/19 23:04: Blood Type O POSITIVE, Antibody Screen NEGATIVE 02/28/19 23:04: Crossmatch See Detail 03/01/19 05:43: WBC 5.9, RBC 1.71 L, Hgb 6.6 L, Hct 20.6 L, MCV 120.5 H, MCH 38.6 H, MCHC 32.0, RDW Std Deviation 88.2 H, RDW Coeff of Reggie 20.3 H, Plt Count 182, MPV 11.2, Immature Gran % (Auto) 0.700, Neut % (Auto) 58.3, Lymph % (Auto) 17.8 L, [place] % (Auto) 19.7 H, Eos % (Auto) 2.7, Baso % (Auto) 0.8, Absolute N euts (auto) 3.4, Absolute Lymphs (auto) 1.05, Nucleated RBC % 2.4, Platelet Estimate ADEQUATE, Hypochromasia 3+, Anisocytosis 2+, Macrocytosis 2+, Target Cells RARE 03/01/19 05:43: Sodium 140, Potassium 3.9, Chloride 103, Carbon Dioxide 32.0, Anion Gap 5, BUN 40 H, Creatinine 1.44 H, Estim Creat Clear Calc 43.54, Est GFR (MDRD) Af Amer 62, Est GFR (MDRD) Non-Af 51 L, BUN/Creatinine Ratio 27.8 H, Glucose 87, Calcium 7.6 L 03/01/19 05:43: Iron 57 L, TIBC 187 L, Iron Saturation 30.5 Current Medications Acetaminophen (Tylenol) 650 mg PO Q6H PRN PRN PRN Reason: Pain Score 1-3/Temp > 100.7 F Last Admin: 03/01/19 07:01 Dose: 650 mg Documented by: Apixaban (Eliquis) 2.5 mg PO BID [facility] Last Admin: 03/01/19 08:31 Dose: 2.5 mg Documented by: Atorvastatin Calcium (Lipitor) 20 mg PO QHS [facility] Last Admin: 02/28/19 21:10 Dose: 20 mg Documented by: Bisacodyl (Dulcolax) 5 mg PO DAILY PRN PRN PRN Reason: Constipation Dextrose (D50w Syringe) 0 gm IV X1 PRN; Protocol PRN Reason: Hypoglycemia Furosemide (Lasix) 40 mg IV BIDLX [facility] Last Admin: 03/01/19 08:33 Dose: 40 mg Documented by: Gabapentin (Neurontin) 300 mg PO DAILY [facility] Last Admin: 03/01/19 08:33 Dose: 300 mg Documented by: Gabapentin (Neurontin) 600 mg PO QHS [facility] Glucagon () 1 mg IM .X1 PRN PRN Reason: Hypoglycemia Hydromorphone HCl (Dilaudid Tablet) 8 mg PO Q4H PRN PRN PRN Reason: Pain Score 1-10/10 Last Admin: 03/01/19 09:33 Dose: 8 mg Documented by: Sodium Chloride () 250 mls @ 15 mls/hr IV .[id number] PRN PRN Reason: Saline Flush Magnesium Oxide (Mag-Ox 400) 400 mg PO DAILY@0800 [facility] Last Admin: 03/01/19 08:31 Dose: 400 mg Documented by: Metoprolol Succinate (Toprol Xl (Beta Yaquelin)) 12.5 mg PO DAILY [facility] Last Admin: 03/01/19 08:34 Dose: 12.5 mg Documented by: Multivitamins/Minerals (Multivitamin With Minerals) 1 tablet PO DAILYCM [facility] Last Admin: 03/01/19 08:31 Dose: 1 tablet Documented by: Nutritional Formula (Lactose Free) (Ensure Enlive) 120 ml PO 4X/DAY [facility] Last Admin: 03/01/19 08:33 Dose: 120 ml Documented by: Ondansetron HCl (Zofran) 4 mg IV Q8H PRN PRN PRN Reason: NAUSEA/VOMITING Potassium Chloride (K-Dur) 20 meq PO DAILY [facility] Last Admin: 03/01/19 08:33 Dose: 20 meq Documented by: Sodium Chloride () 10 - 40 ml IV UD PRN PRN Reason: SALINE FLUSH Last Admin: 03/01/19 08:35 Dose: 10 ml Documented by: Medical Necessity - Tobacco Use Smoking Status: Current some day smoker Tobacco Use: Cigars Assessment/Plan All Active Problems (Last Reviewed 02/28/19 @ 22:50 by Nate Mead MD) Systolic heart failure (Acute) #1 acute systolic congestive heart failure-continue IV diuresis at this time, I have decided to add Cozaar 25 mg daily to his medications, I will monitor his renal functions. #2 chronic kidney disease stage III-patient follows with a home health registered nurse currently #3 iron deficiency anemia-patient's serum iron was 57 and his TIBC was low at 187. I will give the patient IV Venofer today and tomorrow #4 cardiomyopathy-type unknown, could be secondary to a rate dependent cardiomyopathy (patient at one time was in atrial fibrillation)-patient will undergo an echocardiogram tomorrow, if his EF is still low, he will need to see cardiology for possible cardiac catheterization-I discussed this with him and he is not against undergoing further testing and procedures if necessary. 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
[2019-03-01] MEDS: Losartan Potassium 25 MG Tablet PO (14:33)
[2019-03-01] MEDS: Atorvastatin Calcium 20 MG Tablet PO (21:53)
[2019-03-01] MEDS: Gabapentin 600 MG Tablet PO (21:53)
[2019-03-02] VITALS (7 sets, daily range): BP systolic 113–129; BP diastolic 60–76; PULSE 73–87; RESP 16–18; TEMP 36.6–36.9; O2SAT 93–98
[2019-03-02] MEDS: HYDROmorphone 2 MG TABLET 8 MG PO ×2 (02:29→12:01)
[2019-03-02] MEDS: 0.9% Saline Lock 10 ML Syringe IV (02:32)
[2019-03-02 04:03] LABS: Magnesium 2.2 mg/dL (1.6-2.6)
[2019-03-02 04:42] LABS: Hematocrit 26.1 % (40-54)
[2019-03-02 04:56] LABS: Anion Gap 6 (5-15); BUN 37 mg/dL (7-18); BUN/Creat Ratio 24.8 RATIO (10-20); Calcium,Total 7.9 mg/dL (8.5-10.1); Chloride 105 mmol/L (98-107); Creatinine, Serum 1.49 mg/dL (0.70-1.30); EST Glomerular Filtration Rate 49 mL/min (>60); Est Glom Filt Rate - Afr Amer 59 mL/min (>60); Estimated Creatinine Clearance 42.08 ml/min; Glucose 95 mg/dL (74-106); Potassium 3.6 mmol/L (3.5-5.1); Sodium Level 142 mmol/L (136-145)
[2019-03-02] MEDS: Magnesium Oxide 400 MG Tablet PO (09:55)
[2019-03-02] MEDS: Multivitamins,Ther W-Minerals Tablet 1 TABLET PO (09:55)
[2019-03-02] MEDS: APIXABAN 2.5 MG TABLET PO (09:56)
[2019-03-02] MEDS: Losartan Potassium 25 MG Tablet PO (09:56)
[2019-03-02] MEDS: Gabapentin 300 MG Capsule PO (09:57)
[2019-03-02] MEDS: Metoprolol(XL)Succ 25 MG Tablet 12.5 MG PO (09:58)
[2019-03-02] MEDS: Acetaminophen 325 MG Tablet 650 MG PO (10:00)
[2019-03-02] MEDS: Furosemide 40 MG/4 ML Vial IV (10:08)
--- NOTE | 2019-03-02 11:25 | CASEMGMT ---
RN CM Assessment Introduced role of RN CM to patient's Yolanda at bedside as patient is sleeping currently.?Information obtained from at bedside. Yolanda agrees to participate in RN CM Assessment. ?Care providers, pharmacy, and demographics verified. Presentation: Last several days increased swelling both LE and intermittent SOB. 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 Prior Splenectomy and partial colon resection. Admit Dx: Acute exacerbation of HF Re-Admit: No Barriers/Issues: states that patient has a scale and used to weigh himself all the time before but has a wound on his back and gait imbalance that he cannot get on scale now. States he does not walk much at baseline. Unaware of any fluid or sodium restriction that patient should be on. States has a book that they can read on HF and feels comfortable s/w Dr Mauro regarding any fluid or sodium restrictions patient should be following. Spoke about CCN and refusing at this time with plan as noted. States challenge of getting patient to follow restrictions. Educated some on foods with fluids and states that patient was not eating much and kept eating grapes. PCP: Bernardo Lawson Specialists: Cardio- Dr Mauro, Nephro- Dr Haines Preferred Pharmacy: [facility]. Uses [facility] for Maintenance Medications. Insurance: [employer], [facility] Commercial Rx Benefit:?Yes ?LNOK: Yolanda Marshall LW/HPOA: None. Declines offered information or services. Aware can return as an outpatient to complete with the dept. Living Arrangements:? Lives with in a 2 story home, LL set up. 1 step to enter and ramp. ADL?s: Ambulates with walker and cane, independent with ADLs Transportation: , denies any transportation issues or concerns. DME: [employer], [employer]. Denies any other DME. HHC: Past with [facility] SN[facility]: Past at [facility] Goal: Home and does not think will have any needs. Denies any issues/concerns/or questions with DC planning at this time. Aware CM remains available for any emerging needs. DC PLAN: Home with no anticipated needs identified at this time. SHANA Lynch
[2019-03-02 11:48] LABS: Pathologist Review Reviewed
[2019-03-02 11:49] LABS: Pathologist Review Reviewed
--- NOTE | 2019-03-02 12:04 | PCM.DC ---
- Discharge Diagnoses Current Active Problems: Current Active and Chronic Problems (Last Reviewed 02/28/19 @ 22:50 by Nate Mead MD) Systolic heart failure (Acute) You will use the following diet at home:: No restrictions Your food should be the consistency of: Regular Your liquids should be the consistency of: Regular/Thin Discharge Activity: Return to Normal Activity Weight Bearing Status: Full weight bearing Allergies/Adverse Reactions: Allergies chlorthalidone Allergy (Verified 02/28/19 20:31) Unknown ramipril [From Altace] Allergy (Verified 02/28/19 20:31) Unknown sulfamethoxazole [From Bactrim] Allergy (Verified 02/28/19 20:31) Other trazodone Allergy (Verified 02/28/19 20:31) Unknown trimethoprim [From Bactrim] Allergy (Verified 02/28/19 20:31) Other prednisone Adverse Reaction (Verified 02/28/19 20:31) Swelling only in big doses Medications to take at Discharge Folic Acid 1 mg PO DAILY@0800 02/05/16 Magnesium Oxide [Magnesium] 400 mg PO DAILY@0800 02/05/16 Gabapentin [Neurontin] 300 mg PO DAILY 07/04/17 Vit C/E/Zn/Coppr/Lutein/Zeaxan [Preservision Areds 2 Softgel] 1 ea PO BID 07/04/17 apixaban 5 mg tablet 2.5 mg PO BID tab 08/27/17 ferrous fumarate 325 mg (106 mg iron) tablet 325 mg PO BID tab 08/27/17 Acetaminophen [Tylenol Arthritis] 1,300 mg PO PRN PRN 06/02/18 Hydromorphone HCl 4 - 8 mg PO Q4H PRN PRN 06/02/18 fentaNYL patch [Duragesic Patch] 100 mcg TRANSDERM. Q72H PRN 06/02/18 Potassium Chloride [K-Dur] 20 meq PO DAILY #30 tablet 06/07/18 Acetaminophen [Tylenol Tablet] 650 mg PO Q6H PRN PRN tablet 06/18/18 atorvastatin 20 mg tablet 20 mg PO QHS #90 tab 07/14/18 metoprolol succinate ER 25 mg tablet,extended release 24 hr 12.5 mg PO BID #45 tab 09/25/18 Gabapentin 600 mg PO QHS 02/28/19 Furosemide [Lasix] 40 mg PO BID #60 tab 03/02/19 The following prescriptions were given: Furosemide [Lasix] 40 mg PO BID #60 tab Transmission Status: Pending to [id number] Primary Care Physician: Bernardo Lawson DO [Primary Care Provider] - Please follow up with your Primary Care Physician in: at next appointment Test Results: Test results from this visit will be discussed in further detail at your follow-up appointment, if applicable. Please Follow Up With: Micky Mauro MD When: in one month
--- NOTE | 2019-03-03 08:00 | PCM.DC.SUM ---
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 #8 pulmonary hypertension - Secondary Discharge Diagnosis Chronic Problems (Last Reviewed 02/28/19 @ 22:50 by Nate Mead MD) Wound, surgical, nonhealing (Chronic) Status post lumbar laminectomy (Chronic) Cardiomyopathy in diseases classified elsewhere (Chronic) Essential (primary) hypertension (Chronic) Secondary pulmonary arterial hypertension (Chronic) PSVT (paroxysmal supraventricular tachycardia) (Chronic) Paroxysmal atrial fibrillation (Chronic) Pulmonary embolism (Chronic) Hyperlipidemia (Chronic) Hospital Course and Treatment Consultations 02/28/19 23:03 Consult: Onc/Wound/bisque cleaner Routine Comment: laminectomy Operations: None Procedures: 2-D Echocardiogram Summary of Care Provided: The patient is a 73 year old M was seen in the emergency room at [facility] with a chief complaint of bilateral leg swelling and shortness of breath. Patient had a history of congestive heart failure which was previously treated, he had underwent a cardioversion earlier this year for atrial fibrillation. At that time, echocardiogram was performed which showed the patient have a decreased ejection fraction of 25%-this echocardiogram was not repeated this year. Evaluation in the emergency room included a chest x-ray which showed evidence of an elevated right hemidiaphragm, cardiomegaly, but no acute edema. However, patient's beta natruretic peptide was elevated at 1203 and this was felt to represent congestive heart failure. Patient's chemistry profile showed an elevated creatinine and BUN-patient however has a history of chronic kidney disease. Patient was given IV Lasix, he was admitted to PCU and monitored. Patient underwent an echocardiogram on 03/02/2019, it revealed his ejection fraction to be normal and he had evidence of moderate pulmonary hypertension. Patient had episodes of SVT which were asymptomatic and short during his hospitalization, he also had episodes of paroxysmal atrial fibrillation which were short and asymptomatic. These were not related to any activity. On 03/02/2019, patient was seen and examined: On examination he appeared in good health and spirits. Vital signs as documented. Skin warm and dry and without overt rashes. Neck without JVD. Lungs clear. Heart exam notable for regular rhythm, normal sounds and absence of murmurs, rubs or gallops. Abdomen unremarkable and without evidence of organomegaly, masses, or abdominal aortic enlargement. Extremities nonedematous. Neuro: Cranial nerves II through XII are grossly intact, no focal motor deficits were noted, sensation to light touch and pinprick intact. Psych: Patient is alert and oriented x3, he does not appear anxious or depressed On 03/02/2019, patient was seen and examined and felt to be in stable condition for discharge home. - Physical Exam Vitals/I&O's: Vital Signs Temp Pulse Resp BP Pulse Ox 98.5 F 87 18 113/63 93 03/02/19 13:50 03/02/19 13:50 03/02/19 13:50 03/02/19 13:50 03/02/19 13:50 Oxygen Flow Rate (L/min) 1 Oxygen Delivery Method Room Air Weight: 100.9 kg Body Mass Index (BMI) 33.6 Intake and Output for Last 24 Hours 03/01/19 03/02/19 03/03/19 23:59 23:59 23:59 Intake Total 1460 / 1460 550 / 550 Output Total 2675 / 2675 660 / 660 Balance -1215 / -1215 -110 / -110 Laboratory Results 02/28/19 18:30: Diff Path Review Reviewed 03/01/19 05:43: Diff Path Review Reviewed Discharge Activity: Return to Normal Activity Weight Bearing Status: Full weight bearing Home Medications: Medications to take at Discharge Folic Acid 1 mg PO DAILY@0800 02/05/16 Magnesium Oxide [Magnesium] 400 mg PO DAILY@0800 02/05/16 Gabapentin [Neurontin] 300 mg PO DAILY 07/04/17 Vit C/E/Zn/Coppr/Lutein/Zeaxan [Preservision Areds 2 Softgel] 1 ea PO BID 07/04/17 apixaban 5 mg tablet 2.5 mg PO BID tab 08/27/17 ferrous fumarate 325 mg (106 mg iron) tablet 325 mg PO BID tab 08/27/17 Acetaminophen [Tylenol Arthritis] 1,300 mg PO PRN PRN 06/02/18 Hydromorphone HCl 4 - 8 mg PO Q4H PRN PRN 06/02/18 fentaNYL patch [Duragesic Patch] 100 mcg TRANSDERM. Q72H PRN 06/02/18 Potassium Chloride [K-Dur] 20 meq PO DAILY #30 tablet 06/07/18 Acetaminophen [Tylenol Tablet] 650 mg PO Q6H PRN PRN tablet 06/18/18 atorvastatin 20 mg tablet 20 mg PO QHS #90 tab 07/14/18 metoprolol succinate ER 25 mg tablet,extended release 24 hr 12.5 mg PO BID #45 tab 09/25/18 Gabapentin 600 mg PO QHS 02/28/19 Furosemide [Lasix] 40 mg PO BID #60 tab 03/02/19 Following Prescrptions Were Given to Patient: Furosemide [Lasix] 40 mg PO BID #60 tab Transmission Status: Received by [id number] Primary Care Physician: Bernardo Lawson DO [Primary Care Provider] - Please follow up with your Primary Care Physician in: at next appointment Please Follow Up With: Micky Mauro MD When: in one month Please Follow Up With: Bernardo Lawson DO Disposition: Home Minutes spent on discharge:: 32 Patient Condition:: Stable Medical Necessity - Tobacco Use Smoking Status: Current some day smoker Tobacco Use: Cigars Meaningful Use Info Meaningful Use Diagnoses (Choose all that apply): CHF - CHF MABEL/ARB ordered at discharge?: No Reason MABEL/ARB not ordered?: Allergy - Patient had a normal ejection fraction and did not require an MABEL or an ARB Documented LVEF (%): 55 Code Visit Inpatient E&M: 92416 Disch Hosp
--- NOTE | 2019-03-03 13:26 | CASEMGMT ---
ANTONY GARIBAY DC PHONE CALL DC DATE: 03/02/19 DC Disposition: Home Diagnosis on Discharge: CHF LACE/STRATA: 02/05 Intro role of CM to patient via phone. Pt states he had prescription filled, understands instructions and no questions. Has f/u appt with PCP and Dr. Zunilda curtis. Pt states his care was excellent, however the bed was not comfortable. Pattie GUTIERRES RN AC
== END 2019-03-02 15:05 | disposition home or self-care (01) | DRG 291 ==
LOC: ED 18:21 → PCU 19:42
PROVIDERS: Admitting Provider Hospitalist; Emergency Provider Emergency Medicine; Family Provider Family Medicine; PCP Family Medicine; Visit Provider Internal Medicine
DX: I13.0 Hypertensive heart and chronic kidney disease with heart failure and stage 1 through stage 4 chronic kidney disease, or unspecified chronic kidney disease (principal); I50.33 Acute on chronic diastolic (congestive) heart failure; I47.1 Supraventricular tachycardia; N18.3 Chronic kidney disease, stage 3 (moderate); D50.9 Iron deficiency anemia, unspecified; F10.20 Alcohol dependence, uncomplicated; F17.290 Nicotine dependence, other tobacco product, uncomplicated; M47.816 Spondylosis without myelopathy or radiculopathy, lumbar region; E78.5 Hyperlipidemia, unspecified; I42.9 Cardiomyopathy, unspecified; I48.0 Paroxysmal atrial fibrillation; I27.21 Secondary pulmonary arterial hypertension
CPT/HCPCS: 36415; 71045; 80048; 83540; 83550; 83735; 83880; 84484; 85014; 85018; 85025; 86850; 86900; 86901; 86920; 93005; 93306; 97161; 97165; 97802; 99285; J1756; J7040; P9016; Q9957; A4216; J1940

== ENCOUNTER → 2019-03-20 12:36 | Outpatient (CLI) | payer MEDICARE, OTHER, SELFPAY ==
[2015-10-31 10:00] VITALS: BMI 34.9
[2019-03-16 14:45] VITALS: BMI 33.4
== END ==
PROVIDERS: Family Provider Family Medicine; PCP Family Medicine; Referring Provider Internal Medicine Medical Oncology; Visit Provider Internal Medicine Medical Oncology
DX: D64.9 Anemia, unspecified (principal); T81.30XA Disruption of wound, unspecified, initial encounter; Y83.8 Other surgical procedures as the cause of abnormal reaction of the patient, or of later complication, without mention of misadventure at the time of the procedure; I87.2 Venous insufficiency (chronic) (peripheral)
CPT/HCPCS: 11042; 11045; 82274

== ENCOUNTER 2019-03-27 10:00 | Outpatient (RCR) | payer MEDICARE, OTHER, SELFPAY ==
[2015-10-31 10:00] VITALS: BMI 34.9
[2019-02-28 20:05] VITALS: BMI 33.6
[2019-03-06 00:34] VITALS: BP 138/89; PULSE 80; RESP 18; TEMP 36.4
[2019-03-06 13:03] VITALS: BP 154/86; PULSE 94; RESP 18; TEMP 36.3; BMI 33.6
--- NOTE | 2019-03-06 20:08 | PN.PCM_ITS ---
(1) Wound, surgical, nonhealing Status: Chronic Current Visit: Yes Qualifiers: Encounter type: subsequent encounter Code(s): T81.89XA - Other complications of procedures, not elsewhere classified, initial encounter (2) Status post lumbar laminectomy Status: Chronic Current Visit: Yes Code(s): Z98.890 - Other specified postprocedural states Type of Wound Date of Service: 03/06/19 Chief Complaint: Nonhealing surgical wound of lower back History of Wound: Mr. Marshall is a 73-yo who has been seen here at the wound center for a nonhealing surgical wound of his lower back s/p surgical debridement for an abscess s/p lumbar spine surgery. His original surgery on his lower back was approximately 2016 and he has had multiple complications since that time. He underwent surgical debridement on 03/04/[address] Davila at [facility] in [place] and was discharged with a wound vac for healing by secondary intention with possible muscle flap closure in the future. He followed up with his surgeon on 04/18/17 for further evaluation and recommendations and they plan to close the wound with a muscle flap but he continues to develop infections. He is also being seen by Infectious Disease as needed. CT 02/2018 did not show any abscess. Progress of Wound: Cuong is here for follow-up of his nonhealing surgical wound of his lower back. His reports decrease in drainage, although drainage is still very heavy. He has been tolerating Aquacel and acetic acid dressings. Triamcinolone cream has helped with the irritation of the periwound area. His wound was showing mild improvement with applications of Theraskin but it kept getting infected, so we discontinued this treatment. He continues to have very heavy drainage from his wound. He has had 10 applications of Purapply to his lower back wound with mild improvement which were completed 03/21/2018. Cuong saw the surgeon at [facility] again on August 27, 2018 and he does not think a skin flap would be an option but talked about doing a skin graft from his thigh to the lower back. He has been having increased pain in his back and left leg presumably from nerve impingement. Denies increased drainage, fever or chills. - Physical Exam Vital Signs Temp Pulse Resp BP 97.3 F L 94 18 154/86 H 03/06/19 13:03 03/06/19 13:03 03/06/19 13:03 03/06/19 13:03 General: Alert, Oriented x3, Cooperative, No apparent distress HEENT: Atraumatic, Normocephalic Oral: Moist Mucosa Lungs: Clear to auscultation Extremities: Edema Skin: Ulcer/ Wound Wound Measurements and Assessment WC - Nurse 1 - General Ulcer Measurement Start: 03/06/19 13:02 Freq: Status: Active Protocol: Activity Type Activity Date Activity User E-Sign Co-Sign Detail Recorded Client Recorded Date Recorded By Document 03/06/19 13:03 RB [id number] 03/06/19 13:14 RB 03/06/19 13:03 Wound Center Nurse 1 [Ulcer Assessment] #9 Lower Lumbar- Midline -Combined with other wound No -Current Size (cm) - Length 13.7 -Current Size (cm) - Width 4.5 -Current Size (cm) - Depth 0.4 -Total Square Cm 61.65 -Tunneling No -Undermining/Tunneling No -Circular Undermining No -Exudate Amt Large -Exudate Type Serosanguineous -Wound Margin Thickened & Rolled Under -Granulation Amt Medium (34-66%) -Granulation Quality [place] -Slough/Fibrin Yes -Necrosis Amt Large (67-100%) -Necrotic Tissue Type Adherent Slough -Structure Exposed N/A -Texture (Uma-wound Skin Appearance) Assessed, Friable -Moisture (Uma-wound Skin Appearance Assessed ) -Color (Uma-wound Skin Appearance) Assessed -Temperature (Uma-wound Skin No Abnormality Appearance) (Pt Warm) -Tenderness on Palpation (Uma-wound No Skin Appearance) -Ulcer Cleansing Wound Cleanser -Foul Odor after Cleansing No -Anesthetic Used 4% Lidocaine Solution WC - Nurse 2 - General Ulcer CM Notes Start: 03/06/19 13:02 Freq: Status: Active Protocol: Activity Type Activity Date Activity User E-Sign Co-Sign Detail Recorded Client Recorded Date Recorded By Document 03/06/19 13:23 [id number] 03/06/19 13:39 03/06/19 13:23 Wound Center Nurse 2 [Procedure/Treatment] -Time 13:25 -Correct Patient Yes -Correct Side, Site, Position Yes -Correct Procedure Yes -Procedure Performed Yes -Type of Procedure Debridement -Clinical Debridement Muscle -Post Debridement Size (cm) - Length 12.5 -Post Debridement Size (cm) - Width 4 -Post Debridement Size (cm) - Depth 0.4 -Total Square Cm 50.0 -Wound/Ulcer Outcome Not Healed -Ulcer Cleansing Rinsed/ Irrigated with Saline -Foul Odor after Cleansing No -Bioengineered Tissue No -Bleeding Controlled with Pressure -Treatment Response Procedure Tolerated Well [See Physician Procedure note for Specifics] Pain Scale: 0-10 Numeric [Pain] -Is Patient Pain Free? No Psych/Mental Status: Normal Affect, Appropriate Debridement Note Post-Debridement Measurements/Treatment WC - Nurse 2 - General Ulcer CM Notes Start: 03/06/19 13:02 Freq: Status: Active Protocol: Activity Type Activity Date Activity User E-Sign Co-Sign Detail Recorded Client Recorded Date Recorded By Document 03/06/19 13:23 [id number] 03/06/19 13:39 03/06/19 13:23 Wound Center Nurse 2 #9 Lower Lumbar- Midline -Time 13:25 -Correct Patient Yes -Correct Side, Site, Position Yes -Correct Procedure Yes -Procedure Performed Yes -Type of Procedure Debridement -Clinical Debridement Muscle -Post Debridement Size (cm) - Length 12.5 -Post Debridement Size (cm) - Width 4 -Post Debridement Size (cm) - Depth 0.4 -Total Square Cm 50.0 -Wound/Ulcer Outcome Not Healed -Ulcer Cleansing Rinsed/ Irrigated with Saline -Foul Odor after Cleansing No -Bioengineered Tissue No -Bleeding Controlled with Pressure -Treatment Response Procedure Tolerated Well Pain Scale: 0-10 Numeric Is Patient Pain Free? No Wound debrided: lower lumbar midline Laterality: Not Applicable Type of Debridement: Excisional debridement Anesthesia Used: 4% Lidocaine Solution, 5% Lidocaine Gel Depth: Down to and including healthy tissue, in the subcutaneous layer Percentage of wound debrided: 100 Instrument Used: 7mm curette Tissue Removed: yellow slough, devitalized tissue Severity: Fat Layer Exposed Amount of bleeding with debridement: Moderate Bleeding Controlled with: Compression and gauze, Gel Foam Patient tolerated procedure well Assessment/Plan Active Problems (Last Reviewed 03/01/19 @ 01:06 by Nate Mead MD) Wound, surgical, nonhealing (Chronic) Status post lumbar laminectomy (Chronic) Assessment: 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 malnutrition. other multiple comorbidities. edema bilateral lower extremities. venous insufficiency. immunocompromised status. Plan: Evaluated Cuong's wound and debrided his lumbar wound. There has been mild improvement in his wound. Will continue to alternate dressings with Aquacel and acetic acid to the base of his wound. Will cover with KerraMaxCare and wound drape with changes once daily for heavy amount of drainage of his lumbar wound. Continue increased protein intake. F/U in [address] Wick.
--- NOTE | 2019-03-13 19:00 | PN.PCM_ITS ---
(1) Wound, surgical, nonhealing Status: Chronic Current Visit: Yes Qualifiers: Encounter type: subsequent encounter Code(s): T81.89XA - Other complications of procedures, not elsewhere classified, initial encounter (2) Status post lumbar laminectomy Status: Chronic Current Visit: Yes Code(s): Z98.890 - Other specified postprocedural states Type of Wound Date of Service: 03/13/19 Chief Complaint: Nonhealing surgical wound of lower back History of Wound: Mr. Marshall is a 73-yo who has been seen here at the wound center for a nonhealing surgical wound of his lower back s/p surgical debridement for an abscess s/p lumbar spine surgery. His original surgery on his lower back was approximately 2016 and he has had multiple complications since that time. He underwent surgical debridement on 03/04/[address] Davila at [facility] in [place] and was discharged with a wound vac for healing by secondary intention with possible muscle flap closure in the future. He followed up with his surgeon on 04/18/17 for further evaluation and recommendations and they plan to close the wound with a muscle flap but he continues to develop infections. He is also being seen by Infectious Disease as needed. CT 02/2018 did not show any abscess. Progress of Wound: Cuong is here for follow-up of his nonhealing surgical wound of his lower back. His reports mild decrease in drainage, although drainage is still very heavy. He has been tolerating Aquacel and acetic acid dressings. Triamcinolone cream has helped with the irritation of the periwound area. His wound was showing mild improvement with applications of Theraskin but it kept getting infected, so we discontinued this treatment. He continues to have very heavy drainage from his wound. He has had 10 applications of Purapply to his lower back wound with mild improvement which were completed 03/21/2018. Cuong saw the surgeon at [facility] again on August 27, 2018 and he does not think a skin flap would be an option but talked about doing a skin graft from his thigh to the lower back. He has been having increased pain in his back and left leg presumably from nerve impingement. Denies increased drainage, fever or chills. - Physical Exam Vital Signs Temp Pulse Resp BP 97.3 F L 94 18 154/86 H 03/06/19 13:03 03/06/19 13:03 03/06/19 13:03 03/06/19 13:03 General: Alert, Oriented x3, Cooperative, No apparent distress HEENT: Atraumatic, Normocephalic Oral: Moist Mucosa Extremities: Edema Skin: Ulcer/ Wound Psych/Mental Status: Normal Affect, Appropriate Debridement Note Post-Debridement Measurements/Treatment WC - Nurse 2 - General Ulcer CM Notes Start: 03/06/19 13:02 Freq: Status: Active Protocol: Activity Type Activity Date Activity User E-Sign Co-Sign Detail Recorded Client Recorded Date Recorded By Document 03/06/19 13:23 [id number] 03/06/19 13:39 03/06/19 13:23 Wound Center Nurse 2 #9 Lower Lumbar- Midline -Time 13:25 -Correct Patient Yes -Correct Side, Site, Position Yes -Correct Procedure Yes -Procedure Performed Yes -Type of Procedure Debridement -Clinical Debridement Muscle -Post Debridement Size (cm) - Length 12.5 -Post Debridement Size (cm) - Width 4 -Post Debridement Size (cm) - Depth 0.4 -Total Square Cm 50.0 -Wound/Ulcer Outcome Not Healed -Ulcer Cleansing Rinsed/ Irrigated with Saline -Foul Odor after Cleansing No -Bioengineered Tissue No -Bleeding Controlled with Pressure -Treatment Response Procedure Tolerated Well Pain Scale: 0-10 Numeric Is Patient Pain Free? No Wound debrided: Lower lumbar midline Laterality: Not Applicable Type of Debridement: Excisional debridement Anesthesia Used: 4% Lidocaine Solution Depth: Down to and including healthy tissue, in the subcutaneous layer Percentage of wound debrided: 100 Instrument Used: 7mm curette Tissue Removed: yellow slough, devitalized tissue Severity: Fat Layer Exposed Amount of bleeding with debridement: Moderate Bleeding Controlled with: Compression and gauze, Gel Foam Patient tolerated procedure well Assessment/Plan Active Problems (Last Reviewed 03/01/19 @ 01:06 by Nate Mead MD) Wound, surgical, nonhealing (Chronic) Status post lumbar laminectomy (Chronic) Assessment: 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 malnutrition. other multiple comorbidities. edema bilateral lower extremities. venous insufficiency. immunocompromised status. Plan: Evaluated Cuong's wound and debrided his lumbar wound. There has been mild improvement in his wound. Will continue to alternate dressings with Aquacel and acetic acid to the base of his wound. Will cover with KerraMaxCare and wound drape with changes once daily for heavy amount of drainage of his lumbar wound. Continue increased protein intake. F/U in [address] Wick.
[2019-03-20 12:25] VITALS: BP 118/64; PULSE 88; RESP 18; TEMP 37.1; BMI 33.6
--- NOTE | 2019-03-20 19:40 | PCM.WC.PN ---
(1) Wound, surgical, nonhealing Status: Chronic Current Visit: Yes Qualifiers: Encounter type: subsequent encounter Code(s): T81.89XA - Other complications of procedures, not elsewhere classified, initial encounter (2) Status post lumbar laminectomy Status: Chronic Current Visit: Yes Code(s): Z98.890 - Other specified postprocedural states Type of Wound Date of Service: 03/20/19 Chief Complaint: Nonhealing surgical wound of lower back History of Wound: Mr. Marshall is a 73-yo who has been seen here at the wound center for a nonhealing surgical wound of his lower back s/p surgical debridement for an abscess s/p lumbar spine surgery. His original surgery on his lower back was approximately 2016 and he has had multiple complications since that time. He underwent surgical debridement on 03/04/[address] Davila at [facility] in [place] and was discharged with a wound vac for healing by secondary intention with possible muscle flap closure in the future. He followed up with his surgeon on 04/18/17 for further evaluation and recommendations and they plan to close the wound with a muscle flap but he continues to develop infections. He is also being seen by Infectious Disease as needed. CT 02/2018 did not show any abscess. Progress of Wound: Cuong is here for follow-up of his nonhealing surgical wound of his lower back. His reports decrease in drainage, although drainage is still very heavy. He has been tolerating Aquacel and acetic acid dressings. Triamcinolone cream has helped with the irritation of the periwound area. He continues to have very heavy drainage from his wound. He has had 10 applications of Purapply to his lower back wound with mild improvement which were completed 03/21/2018. Cuong saw the surgeon at [facility] again on August 27, 2018 and he does not think a skin flap would be an option but talked about doing a skin graft from his thigh to the lower back. He has been having increased pain in his back and left leg presumably from nerve impingement. Denies increased drainage, fever or chills. - Physical Exam Vital Signs Temp Pulse Resp BP 98.7 F 88 18 118/64 03/20/19 12:25 03/20/19 12:25 03/20/19 12:25 03/20/19 12:25 General: Alert, Oriented x3, Cooperative, No apparent distress HEENT: Atraumatic, Normocephalic Oral: Moist Mucosa Neck: Supple Lungs: Clear to auscultation, Normal air movement Cardiovascular: Regular rate, Regular Rhythm Extremities: Edema Skin: Ulcer/ Wound Wound Measurements and Assessment WC - Nurse 1 - General Ulcer Measurement Start: 03/06/19 13:02 Freq: Status: Active Protocol: Activity Type Activity Date Activity User E-Sign Co-Sign Detail Recorded Client Recorded Date Recorded By Document 03/20/19 12:39 [id number] 03/20/19 13:00 03/20/19 12:39 Wound Center Nurse 1 [Ulcer Assessment] #9 Lower Lumbar- Midline -Combined with other wound No -Current Size (cm) - Length 12.8 -Current Size (cm) - Width 4.4 -Current Size (cm) - Depth 0.4 -Total Square Cm 56.32 -Date of Last Picture (Recall this 03/20/19 field) -Photo Taken Yes -Undermining/Tunneling No -Circular Undermining No -Classification - Thickness Full Thickness with Exposed Support Structure -Change in Wound Grade/Stage No Query Text:If change please identify the Stage/Grade in the comment (ie. S2 G3) -Exudate Type Purulent -Wound Margin Thickened & Rolled Under -Granulation Amt Medium (34-66%) -Granulation Quality [place] -Slough/Fibrin Yes -Necrosis Amt None Present (0 %) -Necrotic Tissue Type Adherent Slough -Structure Exposed Tendon,Fascia, Muscle -Texture (Uma-wound Skin Appearance) No Abnormality, Assessed -Moisture (Uma-wound Skin Appearance Assessed, ) Weeping -Color (Uma-wound Skin Appearance) Assessed, Erythema -Temperature (Uma-wound Skin No Abnormality Appearance) (Pt Warm) -Tenderness on Palpation (Uma-wound No Skin Appearance) -Ulcer Cleansing soap & water -Foul Odor after Cleansing No -Anesthetic Used 4% Lidocaine Solution [Edema Assessment] -Lower Limb Edema Present No WC - Nurse 2 - General Ulcer CM Notes Start: 03/06/19 13:02 Freq: Status: Active Protocol: Activity Type Activity Date Activity User E-Sign Co-Sign Detail Recorded Client Recorded Date Recorded By Document 03/20/19 13:13 VANI [id number] 03/20/19 13:25 DV 03/20/19 13:13 Wound Center Nurse 2 [Procedure/Treatment] #9 Lower Lumbar- Midline -Time 13:17 -Correct Patient Yes -Correct Side, Site, Position Yes -Correct Procedure Yes -Procedure Performed Yes -Type of Procedure Debridement -Clinical Debridement Subcutaneous -Post Debridement Size (cm) - Length 12.7 -Post Debridement Size (cm) - Width 3.8 -Post Debridement Size (cm) - Depth 0.4 -Total Square Cm 48.26 -Wound/Ulcer Outcome Not Healed -Ulcer Cleansing Rinsed/ Irrigated with Saline -Foul Odor after Cleansing No -Bioengineered Tissue No -Bleeding Controlled with Pressure -Offloading No -Treatment Response Procedure Tolerated Well [See Physician Procedure note for Specifics] Pain Scale: 0-10 Numeric [Pain] -Is Patient Pain Free? Yes Psych/Mental Status: Normal Affect, Appropriate Debridement Note Post-Debridement Measurements/Treatment WC - Nurse 2 - General Ulcer CM Notes Start: 03/06/19 13:02 Freq: Status: Active Protocol: Activity Type Activity Date Activity User E-Sign Co-Sign Detail Recorded Client Recorded Date Recorded By Document 03/06/19 13:23 [id number] 03/06/19 13:39 MD Document 03/20/19 13:13 DV [id number] 03/20/19 13:25 DV 03/06/19 03/20/19 13:23 13:13 Wound Center Nurse 2 #9 Lower Lumbar- Midline -Time 13:25 13:17 -Correct Patient Yes Yes -Correct Side, Site, Position Yes Yes -Correct Procedure Yes Yes -Procedure Performed Yes Yes -Type of Procedure Debridement Debridement -Clinical Debridement Muscle Subcutaneous -Post Debridement Size (cm) - Length 12.5 12.7 -Post Debridement Size (cm) - Width 4 3.8 -Post Debridement Size (cm) - Depth 0.4 0.4 -Total Square Cm 50.0 48.26 -Wound/Ulcer Outcome Not Healed Not Healed -Ulcer Cleansing Rinsed/ Rinsed/ Irrigated with Irrigated with Saline Saline -Foul Odor after Cleansing No No -Bioengineered Tissue No No -Bleeding Controlled with Pressure Pressure -Offloading No -Treatment Response Procedure Procedure Tolerated Well Tolerated Well Pain Scale: 0-10 Numeric Is Patient Pain Free? No Yes Wound debrided: lower lumbar midline Laterality: Not Applicable Type of Debridement: Excisional debridement Anesthesia Used: 4% Lidocaine Solution, 5% Lidocaine Gel Depth: Down to and including healthy tissue, in the subcutaneous layer Percentage of wound debrided: 100 Instrument Used: 7mm curette Tissue Removed: yellow slough, devitalized tissue Severity: Fat Layer Exposed Amount of bleeding with debridement: Mild Bleeding Controlled with: Compression and gauze Patient tolerated procedure well Assessment/Plan Active Problems (Last Reviewed 03/01/19 @ 01:06 by Nate Mead MD) Wound, surgical, nonhealing (Chronic) Status post lumbar laminectomy (Chronic) Assessment: 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 malnutrition. other multiple comorbidities. edema bilateral lower extremities. venous insufficiency. immunocompromised status. Plan: Evaluated Cuong's wound and debrided his lumbar wound. There has been mild improvement in his wound. Will continue to alternate dressings with Aquacel and acetic acid to the base of his wound. Will cover with KerraMaxCare and wound drape with changes once daily for heavy amount of drainage of his lumbar wound. Continue increased protein intake. F/U in [address] Wick.
[2019-03-27 10:10] VITALS: BP 122/63; PULSE 93; RESP 16; TEMP 36.6; BMI 33.6
--- NOTE | 2019-03-27 10:57 | PCM.WC.PN ---
(1) Wound, surgical, nonhealing Status: Chronic Current Visit: Yes Qualifiers: Encounter type: subsequent encounter Qualified Code(s): T81.89XD - Other complications of procedures, not elsewhere classified, subsequent encounter Code(s): T81.89XA - Other complications of procedures, not elsewhere classified, initial encounter (2) Status post lumbar laminectomy Status: Chronic Current Visit: Yes Code(s): Z98.890 - Other specified postprocedural states Type of Wound Date of Service: 03/27/19 Chief Complaint: Nonhealing surgical wound of lower back History of Wound: Mr. Marshall is a 73-yo who has been seen here at the wound center for a nonhealing surgical wound of his lower back s/p surgical debridement for an abscess s/p lumbar spine surgery. His original surgery on his lower back was approximately 2015 and he has had multiple complications since that time. He underwent surgical debridement on 03/04/[address] Davila at [facility] in [place] and was discharged with a wound vac for healing by secondary intention with possible muscle flap closure in the future. He followed up with his surgeon on 04/18/17 for further evaluation and recommendations and they plan to close the wound with a muscle flap but he continues to develop infections. He is also being seen by Infectious Disease as needed. CT 02/2018 did not show any abscess. Progress of Wound: Cuong is here for follow-up of his nonhealing surgical wound of his lower back. His reports decrease in drainage, although drainage is still very heavy. He has been tolerating Aquacel and acetic acid dressings. Triamcinolone cream has helped with the irritation of the periwound area. He continues to have very heavy drainage from his wound. He has had 10 applications of Purapply to his lower back wound with mild improvement which were completed 03/21/2018. Cuong saw the surgeon at [facility] again on August 27, 2018 and he does not think a skin flap would be an option but talked about doing a skin graft from his thigh to the lower back. He has been having increased pain in his back and left leg presumably from nerve impingement. Denies increased drainage, fever or chills. - Physical Exam Vital Signs Temp Pulse Resp BP 97.8 F 93 16 122/63 H 03/27/19 10:10 03/27/19 10:10 03/27/19 10:10 03/27/19 10:10 General: Alert, Oriented x3, Cooperative, No apparent distress HEENT: Atraumatic, Normocephalic Oral: Moist Mucosa Neck: Supple Extremities: Edema Skin: Ulcer/ Wound Wound Measurements and Assessment WC - Nurse 1 - General Ulcer Measurement Start: 03/06/19 13:02 Freq: Status: Active Protocol: Activity Type Activity Date Activity User E-Sign Co-Sign Detail Recorded Client Recorded Date Recorded By Document 03/27/19 10:10 [facility] [id number] 03/27/19 10:14 [facility] 03/27/19 10:10 Wound Center Nurse 1 [Ulcer Assessment] #9 Lower Lumbar- Midline -Combined with other wound No -Current Size (cm) - Length 13.5 -Current Size (cm) - Width 4 -Current Size (cm) - Depth 0.4 -Total Square Cm 54.0 -Photo Taken No -Epithelialization Small 1-33% -Tunneling No -Undermining/Tunneling No -Circular Undermining No -Wound Margin Thickened & Rolled Under -Granulation Amt Large (67-100%) -Granulation Quality [place] -Slough/Fibrin Yes -Necrosis Amt Small (1-33%) -Necrotic Tissue Type Adherent Slough -Texture (Uma-wound Skin Appearance) Assessed, Excoriation, Scarring -Moisture (Uma-wound Skin Appearance Assessed ) -Color (Uma-wound Skin Appearance) Assessed, Erythema -Temperature (Uma-wound Skin No Abnormality Appearance) (Pt Warm) -Tenderness on Palpation (Uma-wound Yes Skin Appearance) -Ulcer Cleansing SOAPY WATER -Foul Odor after Cleansing No -Anesthetic Used 4% Lidocaine Solution WC - Nurse 2 - General Ulcer CM Notes Start: 03/06/19 13:02 Freq: Status: Active Protocol: Activity Type Activity Date Activity User E-Sign Co-Sign Detail Recorded Client Recorded Date Recorded By Document 03/27/19 10:32 DV [id number] 03/27/19 10:35 DV 03/27/19 10:32 Wound Center Nurse 2 [Procedure/Treatment] -Time 10:32 -Correct Patient Yes -Correct Side, Site, Position Yes -Correct Procedure Yes -Procedure Performed Yes -Type of Procedure Debridement -Clinical Debridement Subcutaneous -Post Debridement Size (cm) - Length 12.8 -Post Debridement Size (cm) - Width 3.8 -Post Debridement Size (cm) - Depth 0.4 -Total Square Cm 48.64 -Wound/Ulcer Outcome Not Healed -Ulcer Cleansing Rinsed/ Irrigated with Saline -Foul Odor after Cleansing No -Bioengineered Tissue No -Bleeding Controlled with Pressure -Offloading No [See Physician Procedure note for Specifics] Pain Scale: 0-10 Numeric [Pain] -Is Patient Pain Free? Yes Psych/Mental Status: Normal Affect, Appropriate Debridement Note Post-Debridement Measurements/Treatment WC - Nurse 2 - General Ulcer CM Notes Start: 03/06/19 13:02 Freq: Status: Active Protocol: Activity Type Activity Date Activity User E-Sign Co-Sign Detail Recorded Client Recorded Date Recorded By Document 03/06/19 13:23 [id number] 03/06/19 13:39 MD Document 03/20/19 13:13 DV [id number] 03/20/19 13:25 DV Document 03/27/19 10:32 DV [id number] 03/27/19 10:35 DV 03/06/19 03/20/19 03/27/19 13:23 13:13 10:32 Wound Center Nurse 2 #9 Lower Lumbar- Midline -Time 13:25 13:17 10:32 -Correct Patient Yes Yes Yes -Correct Side, Site, Position Yes Yes Yes -Correct Procedure Yes Yes Yes -Procedure Performed Yes Yes Yes -Type of Procedure Debridement Debridement Debridement -Clinical Debridement Muscle Subcutaneous Subcutaneous -Post Debridement Size (cm) - Length 12.5 12.7 12.8 -Post Debridement Size (cm) - Width 4 3.8 3.8 -Post Debridement Size (cm) - Depth 0.4 0.4 0.4 -Total Square Cm 50.0 48.26 48.64 -Wound/Ulcer Outcome Not Healed Not Healed Not Healed -Ulcer Cleansing Rinsed/ Rinsed/ Rinsed/ Irrigated with Irrigated with Irrigated with Saline Saline Saline -Foul Odor after Cleansing No No No -Bioengineered Tissue No No No -Bleeding Controlled with Pressure Pressure Pressure -Offloading No No -Treatment Response Procedure Procedure Tolerated Well Tolerated Well Pain Scale: 0-10 Numeric Is Patient Pain Free? No Yes Yes Wound debrided: lower lumbar midline Type of Debridement: Excisional debridement Anesthesia Used: 4% Lidocaine Solution, 5% Lidocaine Gel Depth: Down to and including healthy tissue, in the subcutaneous layer Percentage of wound debrided: 100 Instrument Used: 7mm curette Tissue Removed: yellow slough, devitalized tissue Severity: Fat Layer Exposed Amount of bleeding with debridement: Mild Bleeding Controlled with: Compression and gauze Patient tolerated procedure well Assessment/Plan Active Problems (Last Reviewed 03/23/19 @ 14:53 by Senia Jackson) Wound, surgical, nonhealing (Chronic) Status post lumbar laminectomy (Chronic) Assessment: 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 malnutrition. other multiple comorbidities. edema bilateral lower extremities. venous insufficiency. immunocompromised status. Plan: Evaluated Cuong's wound and debrided his lumbar wound. There has been mild improvement in his wound. Will continue to alternate dressings with Aquacel and acetic acid to the base of his wound. Will cover with KerraMaxCare and wound drape with changes once daily for heavy amount of drainage of his lumbar wound. Continue increased protein intake. F/U in [address] Wick due to the .
== END 2019-04-04 23:59 ==
LOC: WC 10:00
PROVIDERS: Family Provider Family Medicine; PCP Family Medicine; Referring Provider Family Medicine; Visit Provider Family Medicine
DX: T81.30XA Disruption of wound, unspecified, initial encounter (principal); Y83.8 Other surgical procedures as the cause of abnormal reaction of the patient, or of later complication, without mention of misadventure at the time of the procedure; I87.2 Venous insufficiency (chronic) (peripheral); T81.89XA Other complications of procedures, not elsewhere classified, initial encounter
CPT/HCPCS: 11042; 11045

== ENCOUNTER 2019-04-03 23:30 | Emergency (ER) | payer MEDICARE, OTHER, SELFPAY ==
[2015-10-31 10:00] VITALS: BMI 34.9
[2019-03-30 12:18] VITALS: BMI 33.4
[2019-04-03 23:31] VITALS: BP 144/75; PULSE 95; RESP 18; TEMP 36.7; O2SAT 91; BMI 34.4
--- NOTE | 2019-04-03 23:47 | ED.DCSUM_ITS ---
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 No loss of consciousness. Denies any other injuries except for the laceration to the back of his head. He is on Eliquis because of DVTs, pulmonary emboli, and atrial fibrillation. He denies having a headache. Tetanus Immunization: 5-10 years Prior similar symptoms: No Recent Illness/Hospitalization: No - Past Medical History (1) Anemia Status: Chronic (2) Essential (primary) hypertension Status: Chronic (3) History of non-Hodgkin's lymphoma Status: Chronic (4) Hyperlipidemia Status: Chronic (5) Hypogammaglobulinemia Status: Chronic (6) PSVT (paroxysmal supraventricular tachycardia) Status: Chronic (7) Paroxysmal atrial fibrillation Status: Chronic (8) Pulmonary embolism Status: Chronic (9) Right bundle branch block (RBBB) Status: Chronic (10) Secondary pulmonary arterial hypertension Status: Chronic (11) Non-ischemic cardiomyopathy Status: Resolved Past Medical History - Allergies and Home Meds Allergies/Adverse Reactions: Allergies chlorthalidone Allergy (Verified 04/03/19 23:34) Unknown ramipril [From Altace] Allergy (Verified 04/03/19 23:34) Unknown sulfamethoxazole [From Bactrim] Allergy (Verified 04/03/19 23:34) Other trazodone Allergy (Verified 04/03/19 23:34) Unknown trimethoprim [From Bactrim] Allergy (Verified 04/03/19 23:34) Other prednisone Adverse Reaction (Verified 04/03/19 23:34) Swelling only in big doses Primary Care Physician: Bernardo Lawson DO [Primary Care Provider] - Surgical History: colectomy - Partial., - - Splenectomy, Ileostomy reversal, L4- 5 discectomy. Wound debridement 03/04/2017, 05/14/2017 at [facility]> Lives: Spouse/ Significant Other Smoking Status: Former smoker - Family History Maternal Family History: Family History (Last Reviewed 03/30/19 @ 15:16 by Micky Mauro MD) Father Diabetes Heart disease Mother Heart disease Family History: Reports: Heart Disease Paternal Family History: Family History (Last Reviewed 03/30/19 @ 15:16 by Micky Mauro MD) Father Diabetes Heart disease Mother Heart disease Family History: Reports: Diabetes Review of Systems General: Denies: Chills, Fever, Sweats Eyes: Denies: Visual changes - bilaterally, Diplopia ENT: Denies: Rhinorrhea, Sore throat Cardiovascular: Denies: Chest pain, Palpitations Respiratory: Denies: Dyspnea, Cough, Dyspnea on exertion Gastrointestinal: Denies: Abdominal pain, Nausea, Vomiting, Diarrhea, Melena, Hematochezia Genitourinary: Denies: Dysuria, Hematuria, Frequency Musculoskeletal: Reports: Swelling - BLE chronic. Denies: Neck pain, Back pain, Extremity Pain Skin: Reports: Wounds. Denies: Rash Neurological: Denies: Headache, Weakness, Numbness Physical Exam Vital Signs/Narrative: Vital Signs Temp Pulse Resp BP Pulse Ox 04/03/19 23:31 98.0 F 95 18 144/75 H 91 Inital Vital Signs reviewed: Yes General: Well nourished, Well developed Head: Normocephalic, Trauma - right high occipital, Tenderness - occipital at laceration; no crepitance/depression Eyes: Perrl, EOMI ENT: TM's clear, No hemotympanum or drainage, No trauma. Negative for: Otorrhea, Nasal trauma Neck: Nontender, Full ROM. Negative for: Spinal Tenderness Cardiovascular: Regular rate, Regular rhythm Respiratory: No distress, CTA bilaterally, Chest nontender Abdomen: Soft, Nontender, Nondistended, Normal bowel sounds Back: Nontender Skin: Normal color, No rash, Trauma - 3.5 linear clean-appearing full-thickness right high-occipital scalp laceration. galea intact. Neurological: Alert, Oriented x3, Cranial nerves II-XII grossly intact, Normal Strength, Normal Sensation, Normal Gait Psychological: Normal affect, Normal Mood - Glascow Coma Scale Eye Opening: Spontaneous Motor: Obeys Commands Verbal: Oriented Coma Scale Total: 15 Diagnostic/Tx/Re-eval Clinical Impression(s) from Imaging Studies Brain CT 04/04/19 23:45 IMPRESSION: No fracture or intracranial hemorrhage. Electronically Signed: Juan Antonio De Leon MD at 0:19 EST Tel , Service support , - Medical Decision Making CT negative. Patient was observed due to ER volume, and did not develop any symptoms of a head injury. Laceration was repaired, follow-up 5-6 days for staple removal. Laceration scalp Length: 3 cm Depth: Skin Shape: Linear Prep: Sterile Conditions, Chlorhexadine Laceration Repair: Lidocaine with epi - local, 4cc Irrigated (ml): 30 Number of Sutures/Misael: 4 Stitch Description: - - skin misael Comment: Good skin edge apposition and hemostasis. ED Disposition - Plan for ED Patient: Disposition: Home or Assisted Living Diagnosis: Fall from slipping, Occipital scalp laceration, Closed head injury without loss of consciousness Instructions: HEAD INJURY, No Wake-Up (Adult), LACERATION, Scalp Referrals: Bernardo Lawson DO [Primary Care Provider] - 5 Days for suture removal (or ER)
[2019-04-03] MEDS: Lidocaine/Epi/Tetracaine 50 ML 1 APPLIC TOPICAL (23:55)
[2019-04-04 02:50] VITALS: BP 113/68; PULSE 85; RESP 16; O2SAT 97
--- NOTE | 2019-04-04 02:51 | ED.RN ---
THIS NURSE REVIEWED D/C INSTRUCTIONS WITH PT AND . BOTH VERBALIZED UNDERSTANDING OF INSTRUCTIONS. PT ASSISTED TO THE W/C AND THEN TO THE CAR WITH 2 STAFF ASSIST. PT DENIES FURTHER NEEDS OR QUESTIONS AT THIS TIME
--- NOTE | 2019-04-04 23:45 | CT_ITS ---
STUDY: CT BRAIN WITHOUT CONTRAST REASON FOR EXAM: Male, 73 years old. Fall, laceration, headache RADIATION DOSAGE (If Supplied By Facility): CTDIvol = ( 44.99 ) mGy, DLP = ( 779.24 ) mGycm TECHNIQUE: Transaxial CT imaging of the brain was performed without administration of intravenous contrast material. Individualized dose optimization techniques were used for this CT. COMPARISON: 06/21/2017 FINDINGS: Right posterior scalp injury. Normal calvarium. Bilateral lens replacements. Normal size ventricles and extra-axial spaces for the patient's age. There are areas of decreased attenuation within the white matter tracts of the supratentorial brain, consistent with microvascular disease changes. Age-related changes of the basal ganglia. Normal brainstem. Normal cerebellum. There is no intracranial hemorrhage. There are no findings of an acute ischemic infarction. Normal visualized paranasal sinuses. Bilateral tonsilloliths. CT/Brain/Head without Contrast IMPRESSION: No fracture or intracranial hemorrhage. Electronically Signed: Juan Antonio De Leon MD at 0:19 EST Tel , Service support ,
== END 2019-04-04 02:52 | disposition home or self-care (01) ==
PROVIDERS: Emergency Provider Emergency Medicine; Family Provider Family Medicine; PCP Family Medicine
DX: S01.01XA Laceration without foreign body of scalp, initial encounter (principal); W01.0XXA Fall on same level from slipping, tripping and stumbling without subsequent striking against object, initial encounter; Y93.9 Activity, unspecified; Y92.9 Unspecified place or not applicable; Y99.9 Unspecified external cause status; I48.0 Paroxysmal atrial fibrillation; D80.1 Nonfamilial hypogammaglobulinemia; I10 Essential (primary) hypertension; E78.5 Hyperlipidemia, unspecified; I47.1 Supraventricular tachycardia; I45.10 Unspecified right bundle-branch block; I27.21 Secondary pulmonary arterial hypertension; Z88.2 Allergy status to sulfonamides; Z88.1 Allergy status to other antibiotic agents; Z79.01 Long term (current) use of anticoagulants; Z86.711 Personal history of pulmonary embolism; Z86.718 Personal history of other venous thrombosis and embolism; Z85.72 Personal history of non-Hodgkin lymphomas; Z87.891 Personal history of nicotine dependence; Z90.49 Acquired absence of other specified parts of digestive tract; Z90.81 Acquired absence of spleen
CPT/HCPCS: 12002; 70450; 99284

== ENCOUNTER → 2019-04-07 08:51 | Outpatient (CLI) | payer MEDICARE, OTHER, SELFPAY ==
[2015-10-31 10:00] VITALS: BMI 34.9
[2019-03-23 14:58] VITALS: BMI 33.4
[2019-04-03 23:31] VITALS: BMI 34.4
[2019-04-07] VITALS (10 sets, daily range): BP systolic 80–142; BP diastolic 32–93; PULSE 84–91; RESP 12–24; TEMP 36.8; O2SAT 91–98; BMI 33.4
--- NOTE | 2019-04-07 | BMB_PTH ---
PATIENT: CHINTAN NICHOLS LOC: [place] U#:[id number] AGE/SX: 79/M ROOM: RE04/07/[address]: Dr. Nate Contreras MD : 1945 BED: DIS: SPEC #: [id number] RECD: 04/07/19 00:00 STATUS: CLAUDIA REKiley #: [id number] KATE: 04/07/19 00:[address]: Nate Contreras DEPT: BONE MARROW RECD BY: Bryan Apodaca ENTERED: 04/08/19 08:20 SP TYPE: BMB OTHR DR: Dr. Bernardo Lawson, DO Tissues: A - Bone marrow, NOS B - Bone marrow, NOS C - Bone marrow, NOS Procedures: Decalcification bone/plaque Bone Marrow Aspiration Bone Marrow Core Biopsy Iron Stain Bone Marrow HEADER OPERATION: Bone marrow biopsy and aspiration PRE-OP DIAGNOSIS: Persistent macrocytic anemia, increased IgG level; MDS/multiple myeloma TISSUE SUBMITTED: A - Core, B - Clot, C - Smears, and send outs (flow, cytogenetics, FISH x2) BONE MARROW DIAGNOSIS Bone marrow biopsy, clot and aspirate smears: Consistent with plasma cell dyscrasia. See Comment. AM:ricky 04/15/19 COMMENT Immunohistochemistry reveals a slight kappa restriction. Multiple myeloma FISH panel was unable to be performed due to insufficient number of plasma cells. Chromosomal analysis is pending and will be reported as an addendum. Immunohistochemistry ([id number]) supports the above diagnosis. Case has been reviewed in consultation with Dr. Cleveland who concurs with the above diagnosis. IDC:SJ BONE MARROW STUDY Slides are reviewed. CBC DATE: 04/07/19 WBC 7.7; RBC 2.48; HGB 9.2; HCT 28.1; MCV 113.3; RDW 19.0; PLTS 280,000 SEGS 56%; LYMPHS 20.2%; MONOS 17.5%; EOS 5.4%; BASOS 0.5% PERIPHERAL SMEAR: Submitted. RBC: Macrocytic anemia WBC: Relative mature monocytosis PLTS: Normomorphic BONE MARROW ASPIRATE DIFFERENTIAL: Unable to perform differential as specimen is markedly hemodilute ASPIRATE FINDINGS: Site: N/S Rare minute spicule noted Cellular M/E ratio: N/A (Normal 1.5 - 4.0) Megakaryocytes: Adequate Erythropoiesis: Normoblastic CORE BIOPSY FINDINGS: Site: N/S Adequacy: No Cellularity %: N/A M/E ratio: N/A Comment: No core biopsy present, rare blood clot only. ASPIRATE CLOT FINDINGS: Site: N/S Marrow Particles: Many Cellularity %: 50% M/E ratio: Within normal limits Megakaryocytes: Adequate Granuloma(s): Not identified Lymphoid aggregate(s): Not identified Atypical infiltrate(s): Plasma cell increased (15-20%), appear mature. Comment: Consistent with plasma cell dyscrasia SPECIAL STAINS (with matched controls): Iron: Rare stainable iron Reticulin: Within normal limits PAS: Highlights myeloid elements and megakaryocytes. BONE MARROW GROSS A - Received is a container labeled with the patient's name and designated bone marrow. The specimen consists of a minute brownish fragment measuring <0.1 cm in greatest dimension. The specimen is totally submitted in one cassette after decalcification. B - Received labeled with the patient's name and designated bone marrow is a specimen that consists of approximately 6 cc of bloody fluid that on filtration yields multiple minute fragments of blood clots measuring in aggregate 1.5 x 0.3 x <0.1 cm. The specimen is totally submitted in one cassette. C - Also received are 12 unstained and _ peripheral stained slides. The unstained slides are submitted for appropriate staining. Also received are two green top tubes which are sent to our reference lab for flow, cytogenetics, MDS FISH and MM FISH. / YANIV:altagracia 04/07/19 TC: 0 CPT: 07750, 33230, 16956 x2, 13154 x3, 98970 ADDENDUM ADDENDUM ADDENDUM ADDENDUM ADDENDUM ADDENDUM ADDENDUM ADDENDUM ADDENDUM ADDENDUM 04/20/2019 10:14 ADDENDUM 04/20/2019 10:14 ADDENDUM 04/20/2019 10:14 ADDENDUM 04/20/2019 10:14 ADDENDUM 04/20/2019 10:14 CYTOGENETICS REPORT FROM [facility] CYTOGENETIC RESULT: No mitotic activity MDS FISH PANEL FISH RESULT: Normal MDS panel Please see complete report in e-chart or EMR for further details
--- NOTE | 2019-04-07 | IMM_PTH ---
PATIENT: CHINTAN NICHOLS LOC: CT U#:[id number] AGE/SX: 79/M ROOM: RE04/07/[address]: Dr. Nate Contreras MD : 1945 BED: DIS: SPEC #: [id number] RECD: 04/08/19 10:09 STATUS: CLAUDIA REQ #: [id number] KATE: 04/07/19 00:[address]: Nate Contreras DEPT: IMMUNOHISTOCHEMISTRY RECD BY: Pebbles Warner ENTERED: 04/08/19 10:11 SP TYPE: IMMUNO OTHR DR: Dr. Bernardo Lawson DO Tissues: B - Bone marrow of iliac crest Procedures: CD138 (add) CD20 (add) CD3 (add) CD45 (add) CD5 (add) CD79A (add) KAPPA (add) LAMBDA (add) Pankeratin (initial) BCL-2 (initial) PHYSICIAN & INSTITUTION [place] [id number] SPECIMEN INFORMATION: Tissue Source: B - Bone marrow clot Clinical Info: Macrocytic anemia, increased IgG Specimen Number: [id number] CPT code: 09623, 73620 x9 METHODOLOGY: Deparaffinized sections of prefer/formalin-fixed tissue or PAP/DQ stained slides are incubated with monoclonal/polyclonal antibodies/oligonucleotide probes. Localization is made via biotin free immunoperoxidase method. Appropriate controls are performed and reacted as expected. Results on target cell population are indicated in the following table: RESULTS: ANTIBODY / CLONE RESULT Block B AE1-3 (AE1/AE3/PCK26) negative CD3 (PS1) negative CD5 (SP10) negative CD20 (L26) negative CD45 (RP2/18) negative CD79a (11E3) positive CD138 (B-A38) positive [place] (polyclonal) positive Lambda (polyclonal) negative BCL-2 (bcl-2/100/D5) negative These tests were developed and their performance characteristics determined by [facility]. They may not have been cleared or approved by the U.S. Food and Drug Administration. The FDA has determined that such clearance or approval is not necessary. The above immunohistochemical/dualISH markers are ordered and reviewed by the Pathologist. INTERPRETATION: B. 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 Cleveland who concurs with the above diagnosis. IDC:[email or web address] AM:pearl 04/15/19
--- NOTE | 2019-04-07 09:11 | CT_ITS ---
PROCEDURE: CT GUIDED BONE MARROW biopsy of the left superior iliac crest. DATE: April 07, 2019. INDICATION: Male, 73 years old. Multiple myeloma. PHYSICIAN: Shen Echeverria M.D. RADIATION DOSAGE (If Supplied By Facility): CTDIvol = ( 15.2 ) mGy, DLP = ( 242.59 ) mGycm. Individualized dose optimization techniques were utilized. PROCEDURE: The risks, benefits, and alternatives to the procedure were explained to the patient. The specific risk of hemorrhage requiring further treatment or intervention was detailed and accepted. Follow-up instructions were discussed with the patient as well. Written informed consent was obtained. The patient was brought into the CT suite and placed in the right side down decubitus position. . An appropriate entry site was identified. The overlying skin was prepped and draped in the usual sterile fashion. 1% lidocaine was administered subcutaneously for local anesthesia. Conscious sedation was performed. Conscious sedation was started at 11:05 AM and terminated at 11:13 AM. The patient received 1 mg of Versed and 25 mcg of fentanyl intravenously. The patient was monitored independently by the department nurse. Under CT guidance, a bone marrow biopsy and bone marrow aspirates were performed utilizing an 11-gauge bone marrow core biopsy needle system. The specimens were then placed in the appropriate fluid and transported to the laboratory for analysis. Hemostasis was obtained. The patient tolerated the procedure well without immediate complications. CT/Biopsy/Inj or Needle Placement IMPRESSION: Successful CT guided left iliac bone marrow biopsy and aspirate, as described above. Conscious sedation protocol was followed. Electronically Signed: Shen Echeverria, at 12:39 EST , Service support ,
[2019-04-07 09:15] LABS: Absolute Lymphocyte Count 1.56 X10^3/uL (0.83-4.51); Absolute Neutrophil Count 4.3 X10^3/uL (2.0-7.7); Basophil# 0.04 X10^3/uL; Basophil% 0.5 % (0-1); Eosinophil# 0.42 X10^3/uL; Eosinophils% 5.4 % (0-5); Hematocrit 28.1 % (40-54); Hemoglobin 9.2 g/dL (13.0-16.5); Lymphocyte # 1.56 X10^3/ul (4.0); Lymphocyte % 20.2 % (19-41); Mean Corp Hgb Conc 32.7 g/dL (32-36); Mean Corpuscular Hgb 37.1 pg (27.0-32.0); Mean Corpuscular Volume 113.3 fL (80-94); Mean Platelet Vol. 10.2 fl (6.2-12.0); Monocyte# 1.35 X10^3/uL; Monocyte% 17.5 % (0-10); NRBC Flagged by Analyzer 0.3 % (0-5); Neutrophil # 4.32 X10^3/uL (2.7-7.7); POSITIVE MORPHOLOGY YES; Platelet Count 280 K/mm3 (150-450); RBC Distribution Width SD 79.2 fl (35.1-43.9); Red Blood Count 2.48 M/mm3 (4.6-6.2); White Blood Count 7.7 K/mm3 (4.4-11.0)
[2019-04-07 09:27] LABS: Differential Indicated SCAN CRITERIA MET
[2019-04-07 09:29] LABS: International Normalized Ratio 1.9; Prothrombin Time (Protime)PT. 21.6 SECONDS (11.7-14.9)
[2019-04-07 09:30] LABS: Partial Thromboplast Time 36.6 Seconds (24.1-36.2)
[2019-04-07 09:44] LABS: Anisocytosis 1+; Target Cells 1+
[2019-04-07 09:46] LABS: Anion Gap 6 (5-15); BUN 31 mg/dL (7-18); BUN/Creat Ratio 18.6 RATIO (10-20); Calcium,Total 8.1 mg/dL (8.5-10.1); Chloride 101 mmol/L (98-107); Creatinine, Serum 1.67 mg/dL (0.70-1.30); EST Glomerular Filtration Rate 43 mL/min (>60); Est Glom Filt Rate - Afr Amer 52 mL/min (>60); Glucose 98 mg/dL (74-106); Potassium 4.4 mmol/L (3.5-5.1); Sodium Level 140 mmol/L (136-145)
[2019-04-07] MEDS: Midazolam 2 MG/2 ML Syringe IV (11:05)
[2019-04-07] MEDS: fentaNYL 100 MCG/2 ML Ampul IV (11:06)
== END ==
PROVIDERS: Internal Medicine Cardiovascular Disease; Family Provider Family Medicine; PCP Family Medicine; Referring Provider Internal Medicine Medical Oncology; Visit Provider Internal Medicine Medical Oncology
DX: Z01.818 Encounter for other preprocedural examination (principal); C90.00 Multiple myeloma not having achieved remission; D46.9 Myelodysplastic syndrome, unspecified; D53.9 Nutritional anemia, unspecified; D80.3 Selective deficiency of immunoglobulin G [IgG] subclasses; I42.8 Other cardiomyopathies
CPT/HCPCS: 38221; 36415; 77012; 80048; 85025; 85610; 85730; 88305; 88311; 88313; 88341; 88342; 99156; J7040; A4216

== ENCOUNTER → 2019-04-09 12:29 | Outpatient (CLI) | payer MEDICARE, OTHER, SELFPAY ==
[2015-10-31 10:00] VITALS: BMI 34.9
[2019-03-23 14:58] VITALS: BMI 33.4
[2019-04-07 09:39] VITALS: BMI 33.4
--- NOTE | 2019-04-09 12:30 | RAD_ITS ---
STUDY: X-RAY BONE SURVEY COMPLETE REASON FOR EXAM: Male, 73 years old. h/o cancer [id number] ? multiple myeloma non healing wound in lumbar area from lumbar surgery TECHNIQUE: Frontal view of the chest One view of the pelvis was obtained. views of the cervical spine were obtained. views of the thoracic spine were obtained. views of the lumbar spine were obtained. views of the femur. views of the humerus. : views of the skull were obtained. COMPARISON: None. FINDINGS: CHEST: The lungs are clear and expanded. There is no demonstrated pleural abnormality. There is nonspecific elevation of the right hemidiaphragm. Normal size heart. Normal mediastinum and raquel. Normal visualized pulmonary arteries. There is atherosclerotic calcification of the aortic arch with tortuosity. Normal visualized thoracic spine. Normal visualized ribs, clavicles, and shoulders. There is no demonstrated abnormality of the visualized soft tissue structures of the upper abdomen. PELVIS: There is a non-specific bowel gas pattern. Normal visualized soft tissue structures. Normal bilateral iliac wings, sacroiliac joints and visualized sacrum. Normal visualized bilateral superior and inferior pubic rami. Normal pubic symphysis. Normal ischial tuberosities. Normal visualized right femoral head. Normal right acetabulum. Normal right hip joint. Normal visualized left femoral head. Normal left acetabulum. Normal left hip joint. CERVICAL SPINE: Normal anterior atlantoaxial articulation. Normal odontoid process. There is reversal of the normal cervical lordosis. There is anterolisthesis of C4 on C5 by approximately 2.5 mm that appears secondary to degenerative change. There is marked disc height loss at C4-5 and C5-6. Marginal osteophytes are also seen at these levels. There is mild multilevel facet arthropathy.. There are atherosclerotic vascular calcifications of the carotid arteries. THORACIC SPINE: Normal kyphosis of the thoracic spine. There is no substantial scoliosis. There also appears mild anterior compression of T11. Marginal osteophytes are seen at T10-T11 and T11-T12 anteriorly. There is vacuum disc phenomenon at T10-T11 multilevel marginal osteophytes are also seen throughout most prominent in the mid thoracic region. No lytic or blastic lesions. The soft tissue structures are unremarkable. LUMBAR SPINE: Normal lumbar lordosis. There is no substantial scoliosis. There is a normal alignment of the vertebrae. There is vertebral body compression deformity of L3 by greater than 50% with Schmorl''s nodes associated with both the superior and inferior endplates. There is vacuum disc phenomenon both above and below this vertebral body and there is subchondral air seen within the anterior inferior subchondral region of the vertebral body. This suggests that this is most likely a benign, perhaps an osteoporotic compression deformity. The posterior margin of the vertebral body appears preserved with no retropulsion. . There is subtle compression of the right lateral aspect of L5 with right lateral marginal osteophyte. There is sclerosis. No involvement of the posterior elements. There is atherosclerotic calcification of the abdominal aorta without a demonstrated aneurysm. 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 Normal visualized soft tissue structure. There are atherosclerotic vascular calcifications. LEFT FEMUR: Normal visualized femur. Normal visualized soft tissue structure. There are atherosclerotic vascular calcifications. RIGHT HUMERUS : Not imaged Imaging of both the right and left forearms reveal no evident focal osseous lytic lesion. Vascular calcifications are seen bilaterally. LEFT HUMERUS:Normal visualized humerus. There is no demonstrated fracture or osseous destructive process. There is no demonstrated soft tissue abnormality. SKULL: Skin kristy are noted in association with the posterior right lateral calvarium. Normal osseous calvarium. Normal visualized facial bones. Normal visualized paranasal sinuses. RAD/Bone Survey Comp(Axial&Append) IMPRESSION: No focal lytic lesions to suggest multiple myeloma. There does appear a lesion of the proximal right femur, the appearance most consistent with that of enchondroma and there is lumbar vertebral body compression. Please note that the right humerus was not imaged. An addendum can be made to this report should this be submitted. Pending Final Proof Editing
--- NOTE | 2019-04-09 12:36 | BD_ITS ---
STUDY: DUAL ENERGY X-RAY ABSORPTIOMETRY / DXA REASON FOR EXAM: Male, 73 years old. Anemia. Loss of height. TECHNIQUE: Bone Mineral Density (BMD) measurements of both forearms were obtained. COMPARISON: None. FINDINGS: Right Forearm: g/cm2 (0.786) / T-score (-2.2) / Z-score (-1.2) Left Forearm: g/cm2 (0.788) / T-score (-2.1) / Z-score (-1.1) BD/Dexa Bone Density/Append Skel IMPRESSION: The patient is considered osteopenic as outlined below according to World [employer]icio Organization (WHO) criteria with a high fracture risk. Reference Information: The T-score is the number of standard deviations above or below the standard which is normal for young adults at their peak bone mineral density. The World Health Organization (WHO) interprets the T-scores as follows: Above -1 Normal bone density Between -1 and -2.5 Osteopenia Equal to / or below -2.5 Osteoporosis As a practical clinical guideline, osteopenia may be graded as follows: Mild -1 through -1.5 Moderate -1.6 through -2.0 Severe -2.1 through -2.4 The Z-score is the number of standard deviations above or below age-matched controls. A Z-score of less than -1.5 would be considered abnormal. References: 1. NIH Osteoporosis and Related Bone Diseases http://www.osteo.org 2. International Society for Clinical Densitometry http://www.iscd.org 3. National Osteoporosis Foundation http://www.nof.org Electronically Signed: Shen Echeverria, at 15:23 EST , Service support ,
== END ==
PROVIDERS: Family Provider Family Medicine; PCP Family Medicine; Referring Provider Internal Medicine Medical Oncology; Visit Provider Internal Medicine Medical Oncology
DX: M85.80 Other specified disorders of bone density and structure, unspecified site (principal); D64.9 Anemia, unspecified; M25.78 Osteophyte, vertebrae; D80.3 Selective deficiency of immunoglobulin G [IgG] subclasses; R29.890 Loss of height; Z85.79 Personal history of other malignant neoplasms of lymphoid, hematopoietic and related tissues
CPT/HCPCS: 77075; 77080; 77081

== ENCOUNTER → 2019-04-20 13:39 | Outpatient (CLI) | payer MEDICARE, OTHER, SELFPAY ==
[2015-10-31 10:00] VITALS: BMI 34.9
[2019-04-17 10:05] VITALS: BMI 33.4
[2019-04-20 15:12] LABS: Erythrocyte Sedimentation Rate 84 mm/hr (0-20)
[2019-04-20 15:15] LABS: Absolute Lymphocyte Count 1.67 X10^3/uL (0.83-4.51); Absolute Neutrophil Count 6.1 X10^3/uL (2.0-7.7); Basophil# 0.06 X10^3/uL; Basophil% 0.6 % (0-1); Differential Indicated SCAN CRITERIA MET; Eosinophil# 0.26 X10^3/uL; Eosinophils% 2.6 % (0-5); Hematocrit 23.8 % (40-54); Hemoglobin 7.4 g/dL (13.0-16.5); Lymphocyte # 1.67 X10^3/ul (4.0); Lymphocyte % 16.8 % (19-41); Mean Corp Hgb Conc 31.1 g/dL (32-36); Mean Corpuscular Hgb 36.1 pg (27.0-32.0); Mean Corpuscular Volume 116.1 fL (80-94); Mean Platelet Vol. 11.3 fl (6.2-12.0); Monocyte% 18.1 % (0-10); NRBC Flagged by Analyzer 0.2 % (0-5); Neutrophil # 6.11 X10^3/uL (2.7-7.7); Neutrophil % 61.4 % (47-70); POSITIVE DIFFERENTIAL YES; POSITIVE MORPHOLOGY YES; Platelet Count 261 K/mm3 (150-450); RBC Distribution Width CV 19.8 % (11.6-14.6); RBC Distribution Width SD 85.5 fl (35.1-43.9); Red Blood Count 2.05 M/mm3 (4.6-6.2)
[2019-04-20 15:23] LABS: International Normalized Ratio 2.1; Prothrombin Time (Protime)PT. 23.9 SECONDS (11.7-14.9)
[2019-04-20 15:50] LABS: Anisocytosis 2+; Differential Comment SCANNED; Macrocytosis 3+; Platelet Estimate ADEQUATE (ADEQ)
[2019-04-20 15:51] LABS: Target Cells 1+
== END ==
PROVIDERS: Family Provider Family Medicine; PCP Family Medicine; Visit Provider Family Medicine
DX: M79.10 Myalgia, unspecified site (principal); R79.1 Abnormal coagulation profile; Z51.81 Encounter for therapeutic drug level monitoring
CPT/HCPCS: 36415; 85025; 85610; 85652; 86140

== ENCOUNTER 2019-04-21 11:30 | Inpatient (IN) | payer MEDICARE, OTHER, SELFPAY ==
[2015-10-31 10:00] VITALS: BMI 34.9
[2019-04-17 10:05] VITALS: BMI 33.4
[2019-04-21] VITALS (11 sets, daily range): BP systolic 98–137; BP diastolic 50–98; PULSE 73–92; RESP 12–20; TEMP 36.7–37.2; O2SAT 91–100; BMI 32.8; BMI 32.9; BMI 31.8
--- NOTE | 2019-04-21 12:04 | CT_ITS ---
STUDY: CT BRAIN WITHOUT CONTRAST REASON FOR EXAM: Male, 74 years old. Confusion and generalized weakness. History of falls. RADIATION DOSAGE (If Supplied By Facility): CTDIvol = ( 44.99 ) mGy, DLP = ( 745.49 ) mGycm TECHNIQUE: Transaxial CT imaging of the brain was performed without administration of intravenous contrast material. Individualized dose optimization techniques were used for this CT. COMPARISON: Comparison is made with prior study dated April 04, 2019. FINDINGS: Normal soft tissue structures. Normal calvarium. There is mild cerebral atrophy with widening of the extra-axial spaces and ventricular dilatation. Normal white matter tracts of the cerebral hemispheres. Normal basal ganglia and thalami. Normal brainstem. Normal cerebellum. There is no intracranial hemorrhage. There are no findings of an acute ischemic infarction. Normal visualized paranasal sinuses. CT/Brain/Head without Contrast IMPRESSION: Chronic involutional changes of the brain. Electronically Signed: Shen Echeverria, at 14:44 EST , Service support ,
--- NOTE | 2019-04-21 12:04 | RAD_ITS ---
STUDY: X-RAY CHEST REASON FOR EXAM: Male, 74 years old. Cough. Generalized weakness. TECHNIQUE: Single AP portable view of the chest. COMPARISON: Comparison is made with prior study dated February 28, 2019. FINDINGS: EKG lead tubes are seen. Stable elevation of the right hemidiaphragm. Scattered calcified granulomas. There is no demonstrated pleural abnormality. There is moderate cardiac enlargement. Normal mediastinum and raquel. Normal visualized pulmonary arteries. There is atherosclerotic calcification of the aortic arch with tortuosity. There are diffuse degenerative changes of the visualized thoracic spine. There is degenerative osteoarthritis of the bilateral shoulders. There is no demonstrated abnormality of the visualized soft tissue structures of the upper abdomen. RAD/Chest 1 View (Portable) IMPRESSION: Cardia megaly. Electronically Signed: Shen Echeverria, at 14:45 EST , Service support ,
--- NOTE | 2019-04-21 12:05 | EKG12_ITS ---
Test Reason : BACKPAIN Blood Pressure : / mmHG Vent. Rate : 091 BPM Atrial Rate : 091 BPM P-R Int : 190 ms QRS Dur : 126 ms QT Int : 392 ms P-R-T Axes : 021 -51 057 degrees QTc Int : 482 ms Normal sinus rhythm Right bundle branch block Left anterior fascicular block Bifascicular block Abnormal ECG Confirmed by NOHELIA HAYES, JIM ([id number]), commercial production editor MADDISON ROSA ([id number]) on 04/27/2019 11:51:05 AM Referred By: Cisco Bueno Confirmed By:STERLING POZO MD
--- NOTE | 2019-04-21 12:07 | RAD_ITS ---
STUDY: X-RAY - RIGHT FOOT CLINICAL: Male, 74 years old. Foot pain. Recent fall. TECHNIQUE: 3 view(s) of the foot. COMPARISON: Comparison is made with prior study dated December 12, 2016. FINDINGS: There is an enthesophyte involving the posterior superior calcaneus at the site of insertion of the Achilles tendon. Small plantar spur. Degenerative changes of the tarsal bones. Normal metatarsi. Normal metatarsophalangeal joint of the great toe. Normal tibial and fibular sesamoid bones. Normal interphalangeal joint of the great toe. Normal phalanges of the great toe. Normal second through fifth metatarsophalangeal joints. Primary total deformity of the metatarsal phalangeal joints. There is non-specific soft tissue swelling of the foot. Vascular calcification. RAD/Foot min 3 Views IMPRESSION: Diffuse soft tissue swelling and vascular calcification. Hammertoe deformity of the metatarsophalangeal joints. No fracture is seen. Electronically Signed: Shen Echeverria, at 14:48 EST , Service support ,
--- NOTE | 2019-04-21 12:14 | ED.VIS.GEN ---
History of Present Illness Chief Complaint: Weakness Informant: Patient, Significant Other Onset: Weeks - 1 Context: Gradual Onset Narrative: Patient is a 74-year-old male presenting with increased weakness as well as jerking movements and right foot pain. For the past week patient has been more weak and confused. He is also had these jerking movements of his hands and feet. He is never had anything like this before. He had routine blood work ordered yesterday which showed a hemoglobin of 7.4 and an ESR of 84 as well as a CRP of 24.9. Chart review also shows that patient's hemoglobin at the beginning of this month was 9.2 however he does have a history of anemia. Patient states he has had multiple blood transfusions in the past. PCP states that they were concerned for hepatic encephalopathy possibly associated with his polymyalgia. Patient is unaware of any history of liver failure. He is on Eliquis for history of atrial fibrillation. He denies any black or bloody stools. He denies any associated nausea or vomiting. Patient did have a fall last night at home. He fell out of bed and fell onto his back. He denies hitting his head. He is complaining of right foot pain which he says he injured when he fell. He denies any other complaints at this time. Past Medical History - Allergies and Home Meds Allergies/Adverse Reactions: Allergies chlorthalidone Allergy (Verified 04/21/19 11:32) Unknown ramipril [From Altace] Allergy (Verified 04/21/19 11:32) Unknown sulfamethoxazole [From Bactrim] Allergy (Verified 04/21/19 11:32) Other trazodone Allergy (Verified 04/21/19 11:32) Unknown trimethoprim [From Bactrim] Allergy (Verified 04/21/19 11:32) Other prednisone Adverse Reaction (Verified 04/21/19 11:32) Swelling only in big doses Primary Care Physician: Bernardo Lawson DO [Primary Care Provider] - Past Medical History: - - History of PE, atrial fibrillation, anemia, congestive heart failure?diastolic, nonischemic cardiomyopathy, hypertension, hyperlipidemia, history of non-Hodgkin's lymphoma Surgical History: colectomy - Partial., - - Splenectomy, Ileostomy reversal, L4-5 discectomy. Wound debridement 03/04/2017, 05/14/2017 at [facility]> Smoking Status: Former smoker - Family History Maternal Family History: Family History (Last Reviewed 03/30/19 @ 15:16 by Micky Mauro MD) Father Diabetes Heart disease Mother Heart disease Family History: Reports: Heart Disease Paternal Family History: Family History (Last Reviewed 03/30/19 @ 15:16 by Micky Mauro MD) Father Diabetes Heart disease Mother Heart disease Family History: Reports: Diabetes Review of Systems General: Reports: Malaise. Denies: Chills, Fever, Sweats Eyes: Denies: Visual changes - bilaterally, Diplopia ENT: Reports: - - Nose bleeds . Denies: Rhinorrhea, Sore throat Cardiovascular: Denies: Chest pain, Palpitations Respiratory: Reports: Cough. Denies: Dyspnea, Sputum, Dyspnea on exertion Gastrointestinal: Denies: Abdominal pain, Nausea, Vomiting, Diarrhea, Melena, Hematochezia Genitourinary: Denies: Dysuria, Hematuria, Frequency Musculoskeletal: Reports: Myalgias, Extremity Pain - right foot. Denies: Back pain Skin: Denies: Rash, Wounds Neurological: Reports: - - Jerking movement over hands and feet . Denies: Headache, Weakness, Numbness Hematologic: Reports: Easy bleeding Physical Exam Vital Signs/Narrative: Vital Signs Temp Pulse Resp BP Pulse Ox 04/21/19 11:33 98.1 F 90 18 137/71 H 91 04/21/19 11:31 93 Inital Vital Signs reviewed: Yes General: Well nourished, Well developed, No Acute Distress Head: Normocephalic, Atraumatic Eyes: Perrl, EOMI, Pale conjunctiva ENT: Moist mucous membranes, No rhinorrhea, TM's clear, - - Blood in the right nares, no active bleeding Neck: Supple, Nontender, No JVD Cardiovascular: Regular rate, Regular rhythm, No murmurs Respiratory: No distress, Chest nontender, Rhonchi. Negative for: Decreased Air Movement Abdomen: Soft, Nontender, Nondistended, Normal bowel sounds Back: Nontender, Normal Inspection Extremities: No edema, Tenderness - Tender to palpation right lateral midfoot, no obvious deformity present, Edema - Chronic appearing peripheral edema of the lower extremities Skin: Normal color, No rash, - - Chronic wound lower back Neurological: Alert, Cranial nerves II-XII grossly intact, Normal Strength, Normal Sensation, Confused, - - Asterixis present Psychological: Normal affect, Normal Mood Diagnostic/Tx/Re-eval Chest X-Ray - ED: 1 View, Read by ED Physician, Read by Radiologist, No Acute Disease, Cardiomegaly Clinical Impression(s) from Imaging Studies Brain CT 04/21/19 12:04 IMPRESSION: Chronic involutional changes of the brain. Electronically Signed: Shen Juwan, at 14:44 EST , Service support , Chest X-Ray 04/21/19 12:04 IMPRESSION: Cardia megaly. Electronically Signed: Shen Echeverria, at 14:45 EST , Service support , Foot X-Ray 04/21/19 12:07 IMPRESSION: Diffuse soft tissue swelling and vascular calcification. Hammertoe deformity of the metatarsophalangeal joints. No fracture is seen. Electronically Signed: Shen Juwan, at 14:48 EST , Service support , Laboratory Data 04/21/19 04/21/19 04/21/19 12:25 12:25 12:25 WBC 10.6 RBC 2.08 L Hgb 7.7 L Hct 23.6 L MCV 113.5 H MCH 37.0 H MCHC 32.6 RDW Std Deviation 79.8 H RDW Coeff of Reggie 19.9 H Plt Count 266 MPV 11.9 Immature Gran % (Auto) 0.500 Neut % (Auto) 65.4 Lymph % (Auto) 13.1 L [place] % (Auto) 19.2 H Eos % (Auto) 1.3 Baso % (Auto) 0.5 Absolute Neuts (auto) 6.9 Absolute Lymphs (auto) 1.39 Nucleated RBC % 0 Platelet Estimate ADEQUATE Plt Morphology Comment CLUMPED Polychromasia 1+ Hypochromasia 2+ Basophilic Stippling 1+ Anisocytosis 1+ Macrocytosis 1+ Target Cells 1+ [place] Bodies RARE PT Cancelled INR Cancelled APTT Cancelled Sodium Cancelled Potassium Cancelled Chloride Cancelled Carbon Dioxide Cancelled Anion Gap Cancelled BUN Cancelled Creatinine Cancelled Estim Creat Clear Calc Cancelled Est GFR (MDRD) Af Amer Cancelled Est GFR (MDRD) Non-Af Cancelled BUN/Creatinine Ratio Cancelled Glucose Cancelled Lactic Acid Calcium Cancelled Total Bilirubin Cancelled Direct Bilirubin Cancelled AST Cancelled ALT Cancelled Alkaline Phosphatase Cancelled Ammonia Total Creatine Kinase Troponin I Cancelled Total Protein Cancelled Albumin Cancelled Globulin Cancelled Urine Color Urine Clarity Urine pH Ur Specific [place] Urine Protein Urine Glucose (UA) Urine Ketones Urine Occult Blood Urine Nitrite Urine Bilirubin Urine Urobilinogen Ur Leukocyte Esterase Urine RBC Urine WBC Ur Squamous Epith Cells Urine Bacteria Urine Mucus 04/21/19 04/21/19 04/21/19 12:25 12:25 12:25 WBC RBC Hgb Hct MCV MCH MCHC RDW Std Deviation RDW Coeff of Reggie Plt Count MPV Immature Gran % (Auto) Neut % (Auto) Lymph % (Auto) [place] % (Auto) Eos % (Auto) Baso % (Auto) Absolute Neuts (auto) Absolute Lymphs (auto) Nucleated RBC % Platelet Estimate Plt Morphology Comment Polychromasia Hypochromasia Basophilic Stippling Anisocytosis Macrocytosis Target Cells [place] Bodies PT INR APTT Sodium Potassium Chloride Carbon Dioxide Anion Gap BUN Creatinine Estim Creat Clear Calc Est GFR (MDRD) Af Amer Est GFR (MDRD) Non-Af BUN/Creatinine Ratio Glucose Lactic Acid Cancelled Calcium Total Bilirubin Direct Bilirubin AST ALT Alkaline Phosphatase Ammonia Cancelled Total Creatine Kinase Cancelled Troponin I Total Protein Albumin Globulin Urine Color Urine Clarity Urine pH Ur Specific [place] Urine Protein Urine Glucose (UA) Urine Ketones Urine Occult Blood Urine Nitrite Urine Bilirubin Urine Urobilinogen Ur Leukocyte Esterase Urine RBC Urine WBC Ur Squamous Epith Cells Urine Bacteria Urine Mucus 04/21/19 04/21/19 04/21/19 12:48 13:00 13:00 WBC RBC Hgb Hct MCV MCH MCHC RDW Std Deviation RDW Coeff of Reggie Plt Count MPV Immature Gran % (Auto) Neut % (Auto) Lymph % (Auto) [place] % (Auto) Eos % (Auto) Baso % (Auto) Absolute Neuts (auto) Absolute Lymphs (auto) Nucleated RBC % Platelet Estimate Plt Morphology Comment Polychromasia Hypochromasia Basophilic Stippling Anisocytosis Macrocytosis Target Cells [place] Bodies PT Cancelled INR Cancelled APTT Cancelled Sodium 139 Potassium 5.0 Chloride 102 Carbon Dioxide 31.0 Anion Gap 6 BUN 47 H Creatinine 2.30 H Estim Creat Clear Calc 26.85 Est GFR (MDRD) Af Amer 36 L Est GFR (MDRD) Non-Af 30 L BUN/Creatinine Ratio 20.4 H Glucose 95 Lactic Acid Calcium 7.3 L Total Bilirubin 0.90 Direct Bilirubin 0.49 H AST 47 H ALT 14 L Alkaline Phosphatase 124 H Ammonia Total Creatine Kinase 233 Troponin I 0.057 H Total Protein 7.0 Albumin 1.5 L Globulin 5.5 H Urine Color Yellow Urine Clarity Sl. Cloudy Urine pH 7.0 Ur Specific [place] 1.010 Urine Protein Negative Urine Glucose (UA) Normal Urine Ketones Negative Urine Occult Blood Negative Urine Nitrite Negative Urine Bilirubin Negative Urine Urobilinogen Normal Ur Leukocyte Esterase Negative Urine RBC 0 SEEN Urine WBC 0 SEEN Ur Squamous Epith Cells 0-5 SEEN Urine Bacteria RARE Urine Mucus 0 SEEN 04/21/19 04/21/19 04/21/19 13:40 13:50 13:50 WBC RBC Hgb Hct MCV MCH MCHC RDW Std Deviation RDW Coeff of Reggie Plt Count MPV Immature Gran % (Auto) Neut % (Auto) Lymph % (Auto) [place] % (Auto) Eos % (Auto) Baso % (Auto) Absolute Neuts (auto) Absolute Lymphs (auto) Nucleated RBC % Platelet Estimate Plt Morphology Comment Polychromasia Hypochromasia Basophilic Stippling Anisocytosis Macrocytosis Target Cells [place] Bodies PT 26.3 H INR 2.4 APTT 40.5 H Sodium Potassium Chloride Carbon Dioxide Anion Gap BUN Creatinine Estim Creat Clear Calc Est GFR (MDRD) Af Amer Est GFR (MDRD) Non-Af BUN/Creatinine Ratio Glucose Lactic Acid 1.6 Calcium Total Bilirubin Direct Bilirubin AST ALT Alkaline Phosphatase Ammonia 81.0 H Total Creatine Kinase Troponin I Total Protein Albumin Globulin Urine Color Urine Clarity Urine pH Ur Specific [place] Urine Protein Urine Glucose (UA) Urine Ketones Urine Occult Blood Urine Nitrite Urine Bilirubin Urine Urobilinogen Ur Leukocyte Esterase Urine RBC Urine WBC Ur Squamous Epith Cells Urine Bacteria Urine Mucus - Rhythm Strip Rhythm Strip: Sinus Rhythm Rate: 91 Ectopy: None - EKG Initial EKG Interpretation: Sinus Rhythm - 91, RBBB, LAFB, - - Normal intervals Left axis deviation T wave inversions in V1 through V3 Prior: Unchanged - From 02/28/2019 - Medical Decision Making Patient is evaluated for increased confusion and a new tremor. On physical exam he is slow to respond but is oriented. He does have a hand flapping tremor and his physical exam is concerning for encephalopathy. Patient discussed with his PCP who tells me that patient has a history of alcohol abuse and drinks about 5 liquor drinks a night. He does have a history of fatty liver. He does not have a known history of cirrhosis however. Patient is anemic but he appears near his baseline. Is probably combination of his Eliquis and his wound care requiring frequent debridements. His troponin is mildly elevated. Is not complain of any chest pain. In light of his pathologic INR, anemia and Eliquis use I did not give him aspirin. He does not have any dynamic EKG changes. He does have an elevated creatinine. This is concerning for hepatorenal syndrome. He is given 500 cc of fluid in the emergency room. His ammonia is elevated. He will require lactulose admission for new onset hepatic encephalopathy and likely cirrhosis of the liver. Head CT is unremarkable as well as his chest x-ray which shows a stable cardiomegaly. He is hemodynamically stable in the emergency room. He is agreeable with this plan as well as his . ED Disposition - Plan for ED Patient: Disposition: Acute Care Hospital [facility] Diagnosis: Hepatic encephalopathy, History of alcohol consumption, Acute kidney injury superimposed on chronic kidney disease, Elevated INR, Elevated troponin, Hyperammonemia, Contracture, right foot, Chronic anemia Referrals: Bernardo Lawson DO [Primary Care Provider] -
[2019-04-21 12:42] LABS: Absolute Lymphocyte Count 1.39 X10^3/uL (0.83-4.51); Absolute Neutrophil Count 6.9 X10^3/uL (2.0-7.7); Basophil# 0.05 X10^3/uL; Basophil% 0.5 % (0-1); Eosinophil# 0.14 X10^3/uL; Eosinophils% 1.3 % (0-5); Hematocrit 23.6 % (40-54); Hemoglobin 7.7 g/dL (13.0-16.5); Lymphocyte # 1.39 X10^3/ul (4.0); Lymphocyte % 13.1 % (19-41); Mean Corp Hgb Conc 32.6 g/dL (32-36); Mean Corpuscular Volume 113.5 fL (80-94); Mean Platelet Vol. 11.9 fl (6.2-12.0); Monocyte# 2.04 X10^3/uL; Monocyte% 19.2 % (0-10); NRBC Flagged by Analyzer 0 % (0-5); Neutrophil # 6.94 X10^3/uL (2.7-7.7); Neutrophil % 65.4 % (47-70); POSITIVE DIFFERENTIAL YES; POSITIVE MORPHOLOGY YES; Platelet Count 266 K/mm3 (150-450); RBC Distribution Width CV 19.9 % (11.6-14.6); RBC Distribution Width SD 79.8 fl (35.1-43.9); Red Blood Count 2.08 M/mm3 (4.6-6.2); White Blood Count 10.6 K/mm3 (4.4-11.0)
[2019-04-21 12:52] LABS: Differential Indicated SCAN CRITERIA MET
[2019-04-21 12:53] LABS: Mucous, Urine 0 SEEN /hpf (<or=2+); Red Blood Cells-Urine 0 SEEN /hpf (0-5); White Blood Cells 0 SEEN /hpf (0-5)
[2019-04-21 12:55] LABS: Color, Urine Yellow (Yellow); Glucose, Dipstick Normal (Normal); Ketone-Dipstick Negative (Negative); Leukocyte Esterase-Dipstick Negative /ul (Negative); Nitrite-Dipstick Negative (Negative); Occult Blood-Urine Negative /ul (Negative); Protein-Dipstick Negative (Negative); Urine Bilirubin Dipstick Negative (Negative); Urine Clarity Sl. Cloudy (Clear); Urine Urobilinogen Normal (Normal)
[2019-04-21 13:08] LABS: Bacteria RARE /hpf (None Seen); Squamous Epithelial Cells - UA 0-5 SEEN /hpf (0-5)
[2019-04-21 13:12] LABS: Anisocytosis 1+; Basophilic Stippling 1+; Howell-Jolly Body RARE; Hypochromasia 2+; Macrocytosis 1+; Platelet Estimate ADEQUATE (ADEQ); Platelet Morphology CLUMPED; Polychromasia 1+; Target Cells 1+
[2019-04-21 13:28] LABS: AST(SGOT) 47 U/L (15-37); Alanine Aminotransfer ALT/SGPT 14 U/L (16-61); Albumin, Serum 1.5 g/dL (3.2-5.0); Alkaline Phosphatase 124 U/L (45-117); Anion Gap 6 (5-15); BUN 47 mg/dL (7-18); BUN/Creat Ratio 20.4 RATIO (10-20); Bilirubin, Direct 0.49 mg/dL (0.00-0.30); CPK Total, Creatine Kinase 233 U/L (39-308); Calcium,Total 7.3 mg/dL (8.5-10.1); Chloride 102 mmol/L (98-107); EST Glomerular Filtration Rate 30 mL/min (>60); Est Glom Filt Rate - Afr Amer 36 mL/min (>60); Estimated Creatinine Clearance 26.85 ml/min; Globulin 5.5 g/dL (2.2-4.2); Glucose 95 mg/dL (74-106); Sodium Level 139 mmol/L (136-145)
[2019-04-21 14:20] LABS: International Normalized Ratio 2.4; Prothrombin Time (Protime)PT. 26.3 SECONDS (11.7-14.9)
[2019-04-21 14:21] LABS: Partial Thromboplast Time 40.5 Seconds (24.1-36.2)
[2019-04-21 14:43] LABS: Lactic Acid 1.6 mmol/L (0.4-1.9)
--- NOTE | 2019-04-21 15:17 | NURSING ---
PCU [facility]
--- NOTE | 2019-04-21 15:22 | HP.PCM_ITS ---
<Kennedy Mckeon - Last Filed: 04/21/19 15:22> History of Present Illness Date of Admission: 04/21/19 Chief Complaint: tremor The patient is a 74 year old M with pmhx of heavy drinking, chronic diastolic CHF, CKDIII for which he sees Dr. Haines, Paroxysma Afib, pSVT, nonischemic CM, Hx DVT/PE, pulmonary HTN, HLD, chronic anemia (pt of Dr. Contreras), who presented to the ER with c/o tremor. He has also become gradually more confused and weak over the past week. He has a hx of alcoholism, and continues to drink about 5 shots of vodka nightly, no additional beer/wine. He has no nausea vomiting, or abdominal pain. He denies any black stools. He has no prior hx of liver disease, and he denies that he has an alcohol problem, and also does not have any intention to quit drinking at discharge. He has generalized shaking in the ER, and has hand flapping. He has elevated ammonia, abnormal LFTs, BRIANA, and indeterminant troponin. ] Past Medical History Past Medical History (Chronic Problems): Chronic Problems (Last Reviewed 03/30/19 @ 15:16 by Micky Mauro MD) 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 (Chronic) Acute kidney injury superimposed on chronic kidney disease (Chronic) Chronic anemia (Chronic) Acute on chronic diastolic (congestive) heart failure (Chronic) Paroxysmal atrial fibrillation (Chronic) PSVT (paroxysmal supraventricular tachycardia) (Chronic) Secondary pulmonary arterial hypertension (Chronic) Right bundle branch block (RBBB) (Chronic) Essential (primary) hypertension (Chronic) Hyperlipidemia (Chronic) Pulmonary embolism (Chronic) History of non-Hodgkin's lymphoma (Chronic) Anemia (Chronic) Hypogammaglobulinemia (Chronic) Open wound of lower back (Chronic) with muscle and bone exposed s/p surgical debridement of abscess s/p lumbar spine surgery Medical History: Medical History (Last Reviewed 03/30/19 @ 15:16 by Micky Mauro MD) Acute on chronic diastolic (congestive) heart failure (Chronic) I50.33 Non-ischemic cardiomyopathy (Resolved) I42.8 Paroxysmal atrial fibrillation (Chronic) I48.0 PSVT (paroxysmal supraventricular tachycardia) (Chronic) I47.1 Secondary pulmonary arterial hypertension (Chronic) I27.21 Right bundle branch block (RBBB) (Chronic) I45.10 Essential (primary) hypertension (Chronic) I10 Hyperlipidemia (Chronic) E78.5 Pulmonary embolism (Chronic) I26.99 History of non-Hodgkin's lymphoma (Chronic) Z85.72 Anemia (Chronic) D64.9 Hypogammaglobulinemia (Chronic) D80.1 Open wound of lower back (Chronic) S31.000A with muscle and bone exposed s/p surgical debridement of abscess s/p lumbar spine surgery 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 G06.1 Aortic root dilatation I77.810 Ascending aorta dilatation I77.810 Ascites R18.8 Candidal dermatitis B37.2 Cellulitis and abscess of trunk L03.319, L02.219 Chronic kidney disease N18.9 Chronic ulcer of right leg with fat layer exposed L97.912 Gout M10.9 Hepatic cirrhosis K74.60 History of DVT (deep vein thrombosis) Z86.718 History of diverticulitis Z87.19 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 for treatment of lymphoma Lumbar disc disease M51.9 Lymphedema I89.0 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 of necrosis L98.496 nonhealing ulcer lumbar back area Nonhealing surgical wound T81.89XA MARY JANE (obstructive sleep apnea) G47.33 Open wound of lower back S31.000A Osteomyelitis M86.9 Osteomyelitis of lumbar spine M46.26 Pericardial effusion I31.3 Peripheral vascular disease I73.9 Venous stasis ulcer of heel with fat layer exposed I83.004, L97.402 Wound, surgical, nonhealing T81.89XA Acute on chronic systolic (congestive) heart failure (Inactive) I50.23 Edema of lower extremity R60.0 Allergies chlorthalidone Allergy (Verified 04/21/19 11:32) Unknown ramipril [From Altace] Allergy (Verified 04/21/19 11:32) Unknown sulfamethoxazole [From Bactrim] Allergy (Verified 04/21/19 11:32) Other trazodone Allergy (Verified 04/21/19 11:32) Unknown trimethoprim [From Bactrim] Allergy (Verified 04/21/19 11:32) Other prednisone Adverse Reaction (Verified 04/21/19 11:32) Swelling only in big doses Home Medications: Ambulatory Orders Medication Instructions Recorded Folic Acid 1 mg PO DAILY@0800 02/05/16 Magnesium Oxide [Magnesium] 400 mg PO DAILY@0800 02/05/16 Vit C/E/Zn/Coppr/Lutein/Zeaxan 1 ea PO BID 07/04/17 [Preservision Areds 2 Softgel] ferrous fumarate 325 mg (106 mg 325 mg PO BID tab 08/27/17 iron) tablet Hydromorphone HCl 4 - 8 mg PO Q4H PRN PRN 06/02/18 fentaNYL patch [Duragesic Patch] 100 mcg TRANSDERM. Q72H PRN 06/02/18 Acetaminophen [Tylenol Tablet] 650 mg PO Q6H PRN PRN tab 06/18/18 atorvastatin 20 mg tablet 20 mg PO QHS #90 tab 07/14/18 Gabapentin 600 mg PO QHS 02/28/19 Cholecalciferol (Vitamin D3) 1,000 unit PO DAILY 03/16/19 [Vitamin D3] metoprolol succinate 25 mg 25 mg PO DAILY #90 tab 03/30/19 tablet,extended release 24 hr spironolactone 50 mg tablet 50 mg PO DAILY #60 tab 03/30/19 Furosemide 60 mg PO BID 04/03/19 Apixaban [Eliquis] 2.5 mg PO BID 04/07/19 Gabapentin [Neurontin] 300 mg PO DAILY 04/21/19 Surgical History: Surgical History (Last Reviewed 04/21/19 @ 15:41 by RIKY Beaulieu) Status post lumbar laminectomy Z98.890 History of laminectomy Z98.890 History of splenectomy Z90.81 Surgical History: colectomy - Partial., - - Splenectomy, Ileostomy reversal, L4- 5 discectomy. Wound debridement 03/04/2017, 05/14/2017 at [facility]> Psychiatric History: No pertinent psych hx Lives: Spouse/ Significant Other Smoking Status: Former smoker Tobacco Use: Non-smoker Alcohol: Heavy Drugs: None - *Family History Maternal Family History: Family History (Last Reviewed 04/21/19 @ 15:40 by RIKY Beaulieu) Father Diabetes Heart disease Mother Heart disease History Items: Heart Disease Paternal Family History: Family History (Last Reviewed 04/21/19 @ 15:40 by RIKY Beaulieu) Father Diabetes Heart disease Mother Heart disease History Items: Diabetes Review of Systems Constitutional: Reports: Malaise, Weakness, Fatigue. Denies: Chills, Fever, Weight Change Eyes: Denies: Blurred vision, Double vision, Vision Change HEENT: Denies: Head Aches, Sinus Congestion, Sinus Drainage Cardiovascular: Denies: Chest Pain, Chest Tightness, Heaviness, Light Headedness, Palpitations Respiratory: Denies: Cough, Shortness of Breath, Shortness of breath at rest, Sputum production, Wheezing Gastrointestinal: Denies: Abdominal Pain, Nausea, Vomiting Genitourinary: Denies: Dysuria Musculoskeletal: Denies: Joint Pain, Joint Tenderness Skin: Denies: Rash, Wounds Neurological: Denies: Numbness, Tingling, Focal weakness Psychiatric: Denies: Anxiety, Depression, Homicidal Ideations, Suicidal Ideations Hematologic/ Lymphatic: Denies: Easy Bruising, Easy Bleeding VTE Information - Inpt Only VTE Present on Admission: No VTE Mechan Device Prophylaxis: None VTE Pharm Prophylaxis ordered?: Yes - Physical Exam Vitals/I&O's: Vital Signs Temp Pulse Resp BP Pulse Ox 98.1 F 86 20 H 115/98 H 95 04/21/19 11:33 04/21/19 14:19 04/21/19 14:19 04/21/19 14:19 04/21/19 14:19 Oxygen Flow Rate (L/min) 2 Oxygen Delivery Method Room Air Weight: 216 lb 4.375 oz Body Mass Index (BMI) 32.8 Intake and Output for Last 24 Hours 04/19/19 04/20/19 04/21/19 23:59 23:59 23:59 Intake Total 500 / 500 Balance 500 / 500 General: Alert, Oriented x3, Cooperative HEENT: Atraumatic, PERRLA, EOMI, Normocephalic Neck: Supple, No JVD, Negative Carotid Bruits Lungs: Clear to auscultation, Normal air movement Cardiovascular: Regular rate, No murmurs Abdomen: Bowel Sounds Present, Soft, Non Tender, Obese Extremities: No edema, Capillary Refill Less than 3 Seconds Skin: No rashes, No breakdown, - - BL LE erythema, mild edema, dry skin. Musculoskeletal: No Tenderness to Palpation of Joints or Extremities Neurological: Cranial nerves II-XII grossly intact, - - + asterixis Psych/Mental Status: Normal Affect, Appropriate, Alert and oriented to time, place, person, mood and affect Laboratory Results 04/21/19 12:25: WBC 10.6, RBC 2.08 L, Hgb 7.7 L, Hct 23.6 L, MCV 113.5 H, MCH 37.0 H, MCHC 32.6, RDW Std Deviation 79.8 H, RDW Coeff of Reggie 19.9 H, Plt Count 266, MPV 11.9, Immature Gran % (Auto) 0.500, Neut % (Auto) 65.4, Lymph % (Auto) 13.1 L, Atlantic % (Auto) 19.2 H, Eos % (Auto) 1.3, Baso % (Auto) 0.5, Absolute Neuts (auto) 6.9, Absolute Lymphs (auto) 1.39, Nucleated RBC % 0, Platelet Estimate ADEQUATE, Plt Morphology Comment CLUMPED, Polychromasia 1+, Hypochromasia 2+, Basophilic Stippling 1+, Anisocytosis 1+, Macrocytosis 1+, Target Cells 1+, [place] Bodies RARE 04/21/19 12:25: PT Cancelled, INR Cancelled, APTT Cancelled 04/21/19 12:25: Sodium Cancelled, Potassium Cancelled, Chloride Cancelled, Carbon Dioxide Cancelled, Anion Gap Cancelled, BUN Cancelled, Creatinine Cancelled, Estim Creat Clear Calc Cancelled, Est GFR (MDRD) Af Amer Cancelled, Est GFR (MDRD) Non-Af Cancelled, BUN/Creatinine Ratio Cancelled, Glucose Cancelled, Calcium Cancelled, Total Bilirubin Cancelled, Direct Bilirubin Cancelled, AST Cancelled, ALT Cancelled, Alkaline Phosphatase Cancelled, Troponin I Cancelled, Total Protein Cancelled, Albumin Cancelled, Globulin Cancelled 04/21/19 12:25: Lactic Acid Cancelled 04/21/19 12:25: Total Creatine Kinase Cancelled 04/21/19 12:25: Ammonia Cancelled 04/21/19 12:48: Urine Color Yellow, Urine Clarity Sl. Cloudy, Urine pH 7.0, Ur Specific [place] 1.010, Urine Protein Negative, Urine Glucose (UA) Normal, Urine Ketones Negative, Urine Occult Blood Negative, Urine Nitrite Negative, Urine Bilirubin Negative, Urine Urobilinogen Normal, Ur Leukocyte Esterase Negative, U rine RBC 0 SEEN, Urine WBC 0 SEEN, Ur Squamous Epith Cells 0-5 SEEN, Urine Bacteria RARE, Urine Mucus 0 SEEN 04/21/19 13:00: PT Cancelled, INR Cancelled, APTT Cancelled 04/21/19 13:00: Sodium 139, Potassium 5.0, Chloride 102, Carbon Dioxide 31.0, Anion Gap 6, BUN 47 H, Creatinine 2.30 H, Estim Creat Clear Calc 26.85, Est GFR (MDRD) Af Amer 36 L, Est GFR (MDRD) Non-Af 30 L, BUN/Creatinine Ratio 20.4 H, Glucose 95, Calcium 7.3 L, Total Bilirubin 0.90, Direct Bilirubin 0.49 H, AST 47 H, ALT 14 L, Alkaline Phosphatase 124 H, Total Creatine Kinase 233, Troponin I 0.057 H, Total Protein 7.0, Albumin 1.5 L, Globulin 5.5 H 04/21/19 13:40: Ammonia 81.0 H 04/21/19 13:50: Lactic Acid 1.6 04/21/19 13:50: PT 26.3 H, INR 2.4, APTT 40.5 H Assessment/Plan All Active Problems (Last Reviewed 03/30/19 @ 15:16 by Micky Mauro MD) Hepatic encephalopathy (Acute) History of alcohol consumption (Acute) Elevated INR (Acute) Elevated troponin (Acute) Hyperammonemia (Acute) Contracture, right foot (Acute) Non-ischemic cardiomyopathy (Resolved) 1. Hepatic encephalopathy - 2/2 alcoholism. Ammonia 81. + Asterixis. No prior hx. Mildly abnormal LFTs. Start lactulose. Check RUQ US. No N/V/D black stools, or abd pain. With increasing confusion and weakness will temporarily hold his gabapentin, fentanyl, and dilaudid. PRN pain medications ordered, titrate up from there if mentation ok. hold statin. total CK normal. -CT brain chronic changes, CXR cardiomegaly, UA negative. 2. BRIANA - likely hepatorenal, consult Dr. Haines, hold nephrotoxins. Gentle IV fluids (hx CM) 3. Alcoholism - drinks 5 shots vodka nightly. Initiate CIWA protocol, PRN ativan, IV thiamine, po folate, MVI. Check Mag/phos. He expresses no intention of quitting and states he has never had a drinking problem. 4. Indeterminate troponin - possibly 2/2 BRIANA, will cycle and check AM EKG. EKG with no acute changes. 5. Hx DVT/PE - continue eliquis 6. Chronic anemia - pt of Dr. Contreras - trend. Continue eliquis for now. Continue iron. 7. Debility / Fall - ankle pain - xray negative. 8. Chronic LE wounds - follows at wound care center - wound care consult. 9. Hx nonischemic CM, HTN, HLD, pulmonary htn - lasix/aldactone held for BRIANA. 10. Hx pAfib/pSVT - metoprolol DC planning: PTOT DVT ppx: eliquis This patient was seen by Kennedy Mckeon PA-C under the supervision of Dr. Bueno. <Cisco Bueno - Last Filed: 04/21/19 17:30> History of Present Illness The patient is a 74 year old M history of chronic alcohol use for past 50 years about 5 shots of vodka daily came to ER with tremors, confusion and generalized weakness. As per the , patient is confused, tremors and has gait incoordination. He is oriented to time, place and person. Patient has chronic prostatic anemia probably secondary to chronic alcohol use. H&H 7.7/23.6, MCV 1 at 13, platelet count 266 Denied nausea vomiting, GI bleed. [] Past Medical History Medical History: Medical History (Last Reviewed 03/30/19 @ 15:16 by Micky Mauro MD) Acute on chronic diastolic (congestive) heart failure (Chronic) I50.33 Non-ischemic cardiomyopathy (Resolved) I42.8 Paroxysmal atrial fibrillation (Chronic) I48.0 PSVT (paroxysmal supraventricular tachycardia) (Chronic) I47.1 Secondary pulmonary arterial hypertension (Chronic) I27.21 Right bundle branch block (RBBB) (Chronic) I45.10 Essential (primary) hypertension (Chronic) I10 Hyperlipidemia (Chronic) E78.5 Pulmonary embolism (Chronic) I26.99 History of non-Hodgkin's lymphoma (Chronic) Z85.72 Anemia (Chronic) D64.9 Hypogammaglobulinemia (Chronic) D80.1 Open wound of lower back (Chronic) S31.000A with muscle and bone exposed s/p surgical debridement of abscess s/p lumbar spine surgery 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 G06.1 Aortic root dilatation I77.810 Ascending aorta dilatation I77.810 Ascites R18.8 Candidal dermatitis B37.2 Cellulitis and abscess of trunk L03.319, L02.219 Chronic kidney disease N18.9 Chronic ulcer of right leg with fat layer exposed L97.912 Gout M10.9 Hepatic cirrhosis K74.60 History of DVT (deep vein thrombosis) Z86.718 History of diverticulitis Z87.19 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 for treatment of lymphoma Lumbar disc disease M51.9 Lymphedema I89.0 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 of necrosis L98.496 nonhealing ulcer lumbar back area Nonhealing surgical wound T81.89XA MARY JANE (obstructive sleep apnea) G47.33 Open wound of lower back S31.000A Osteomyelitis M86.9 Osteomyelitis of lumbar spine M46.26 Pericardial effusion I31.3 Peripheral vascular disease I73.9 Venous stasis ulcer of heel with fat layer exposed I83.004, L97.402 Wound, surgical, nonhealing T81.89XA Acute on chronic systolic (congestive) heart failure (Inactive) I50.23 Edema of lower extremity R60.0 Allergies chlorthalidone Allergy (Verified 04/21/19 11:32) Unknown ramipril [From Altace] Allergy (Verified 04/21/19 11:32) Unknown sulfamethoxazole [From Bactrim] Allergy (Verified 04/21/19 11:32) Other trazodone Allergy (Verified 04/21/19 11:32) Unknown trimethoprim [From Bactrim] Allergy (Verified 04/21/19 11:32) Other prednisone Adverse Reaction (Verified 04/21/19 11:32) Swelling only in big doses Surgical History: Surgical History (Last Reviewed 04/21/19 @ 15:41 by RIKY Beaulieu) Status post lumbar laminectomy Z98.890 History of laminectomy Z98.890 History of splenectomy Z90.81 - *Family History Maternal Family History: Family History (Last Reviewed 04/21/19 @ 15:40 by RIKY Beaulieu) Father Diabetes Heart disease Mother Heart disease Paternal Family History: Family History (Last Reviewed 04/21/19 @ 15:40 by RIKY Beaulieu) Father Diabetes Heart disease Mother Heart disease Review of Systems Constitutional: Reports: Malaise, Weakness, Fatigue HEENT: Denies: Head Aches, Sinus Congestion, Sinus Drainage Cardiovascular: Denies: Chest Pain, Palpitations Respiratory: Denies: Cough, Shortness of breath at rest, Sputum production Gastrointestinal: Denies: Abdominal Pain, Nausea, Vomiting Genitourinary: Denies: Dysuria, Frequency, Hematuria Musculoskeletal: Denies: Joint Pain, Joint Tenderness Skin: Denies: Rash, Wounds Neurological: Reports: Balance problems, Confusion, Incoordination, - - Recent fall. Denies: Blurred vision, Double vision, Slurred speech, Focal weakness, Numbness, Tingling Psychiatric: Denies: Anxiety, Depression, Homicidal Ideations, Suicidal Ideations Hematologic/ Lymphatic: Denies: Easy Bruising, Easy Bleeding VTE Information - Inpt Only VTE Present on Admission: No VTE Mechan Device Prophylaxis: None VTE Pharm Prophylaxis ordered?: Yes - Physical Exam Vitals/I&O's: Vital Signs Temp Pulse Resp BP Pulse Ox 98.9 F 84 12 102/50 L 92 04/21/19 16:49 04/21/19 16:49 04/21/19 16:49 04/21/19 16:49 04/21/19 16:49 Oxygen Flow Rate (L/min) 2 Oxygen Delivery Method Room Air Weight: 209 lb 14.081 oz Body Mass Index (BMI) 31.8 Intake and Output for Last 24 Hours 04/19/19 04/20/19 04/21/19 23:59 23:59 23:59 Intake Total 500 / 500 Balance 500 / 500 General: Alert, Oriented x3, Cooperative HEENT: Atraumatic, PERRLA, EOMI, Normocephalic Neck: Supple, No JVD, Negative Carotid Bruits Lungs: Clear to auscultation, No rhonchi, No wheeze, No rales, Diminished Cardiovascular: Regular rate, Regular Rhythm, Normal S1, Normal S2, No murmurs Abdomen: Bowel Sounds Present, Soft, Non Tender, Non-Distended, Obese Extremities: No edema, Capillary Refill Less than 3 Seconds Skin: Ulcer/ Wound - Chronic nonhealing postoperative wound in the back, chronic in nature with dressing on. Purulent staining on the dressing. Has since 2016 after back surgery., - - BL LE erythema, mild edema, dry skin. Musculoskeletal: No Tenderness to Palpation of Joints or Extremities Neurological: Cranial nerves II-XII grossly intact, Deep Tendon Reflexes 2+/4 and Symmetrical, Neuro grossly intact, - Psych/Mental Status: Normal Affect, Appropriate, Agitated, Anxious, Alert and oriented to time, place, person, mood and affect Laboratory Results 04/21/19 12:25: WBC 10.6, RBC 2.08 L, Hgb 7.7 L, Hct 23.6 L, MCV 113.5 H, MCH 37.0 H, MCHC 32.6, RDW Std Deviation 79.8 H, RDW Coeff of Reggie 19.9 H, Plt Count 266, MPV 11.9, Immature Gran % (Auto) 0.500, Neut % (Auto) 65.4, Lymph % (Auto) 13.1 L, [place] % (Auto) 19.2 H, Eos % (Auto) 1.3, Baso % (Auto) 0.5, Absolute Neuts (auto) 6.9, Absolute Lymphs (auto) 1.39, Nucleated RBC % 0, Platelet Estimate ADEQUATE, Plt Morphology Comment CLUMPED, Polychromasia 1+, Hypochromasia 2+, Basophilic Stippling 1+, Anisocytosis 1+, Macrocytosis 1+, Target Cells 1+, [place] Bodies RARE 04/21/19 12:25: PT Cancelled, INR Cancelled, APTT Cancelled 04/21/19 12:25: Sodium Cancelled, Potassium Cancelled, Chloride Cancelled, Carbon Dioxide Cancelled, Anion Gap Cancelled, BUN Cancelled, Creatinine Cancelled, Estim Creat Clear Calc Cancelled, Est GFR (MDRD) Af Amer Cancelled, Est GFR (MDRD) Non-Af Cancelled, BUN/Creatinine Ratio Cancelled, Glucose Cancelled, Calcium Cancelled, Total Bilirubin Cancelled, Direct Bilirubin Cancelled, AST Cancelled, ALT Cancelled, Alkaline Phosphatase Cancelled, Troponin I Cancelled, Total Protein Cancelled, Albumin Cancelled, Globulin Cancelled 04/21/19 12:25: Lactic Acid Cancelled 04/21/19 12:25: Total Creatine Kinase Cancelled 04/21/19 12:25: Ammonia Cancelled 04/21/19 12:48: Urine Color Yellow, Urine Clarity Sl. Cloudy, Urine pH 7.0, Ur Specific [place] 1.010, Urine Protein Negative, Urine Glucose (UA) Normal, Urine Ketones Negative, Urine Occult Blood Negative, Urine Nitrite Negative, Urine Bilirubin Negative, Urine Urobilinogen Normal, Ur Leukocyte Esterase Negative, Urine RBC 0 SEEN, Urine WBC 0 SEEN, Ur Squamous Epith Cells 0-5 SEEN, Urine Bacteria RARE, Urine Mucus 0 SEEN 04/21/19 13:00: PT Cancelled, INR Cancelled, APTT Cancelled 04/21/19 13:00: Sodium 139, Potassium 5.0, Chloride 102, Carbon Dioxide 31.0, Anion Gap 6, BUN 47 H, Creatinine 2.30 H, Estim Creat Clear Calc 26.85, Est GFR (MDRD) Af Amer 36 L, Est GFR (MDRD) Non-Af 30 L, BUN/Creatinine Ratio 20.4 H, Glucose 95, Calcium 7.3 L, Total Bilirubin 0.90, Direct Bilirubin 0.49 H, AST 47 H, ALT 14 L, Alkaline Phosphatase 124 H, Total Creatine Kinase 233, Troponin I 0.057 H, Total Protein 7.0, Albumin 1.5 L, Globulin 5.5 H 04/21/19 13:00: Phosphorus Pending, Magnesium Pending 04/21/19 13:40: Ammonia 81.0 H 04/21/19 13:50: Lactic Acid 1.6 04/21/19 13:50: PT 26.3 H, INR 2.4, APTT 40.5 H Current Medications Apixaban (Eliquis) 2.5 mg PO BID [facility] Cholecalciferol (Vitamin D) [facility] Ferrous Sulfate (Ferrous Sulfate) 325 [facility] Last Admin: 04/21/19 17:09 Dose: Not Given Documented by: Folic Acid (Folic Acid) 1 mg PO DAILY@0800 [facility] Stop: 04/23/19 08:01 Last Admin: 04/21/19 16:58 Dose: Not Given Documented by: Sodium Chloride () 1,000 mls @ 75 mls/hr IV .[id number] [facility] Last Admin: 04/21/19 17:13 Dose: 75 mls/hr Documented by: Lactulose (Chronulac, Cephulac) 20 gm PO BID [facility] Last Admin: 04/21/19 17:13 Dose: 20 gm Documented by: Lorazepam (Ativan) 2 mg PO Q2H PRN PRN; Protocol PRN Reason: CIWA score > 8 but <15 Lorazepam (Ativan) 2 mg PO UD PRN; Protocol PRN Reason: CIWA score >/=15. Lorazepam (Ativan) 2 mg IV Q2H PRN PRN; Protocol PRN Reason: CIWA score > 8 but <15 Lorazepam (Ativan) 2 mg IV UD PRN; Protocol PRN Reason: CIWA score >/=15. Magnesium Oxide (Mag-Ox 400) 400 mg PO DAILY@0800 [facility] Metoprolol Succinate (Toprol Xl (Beta Yaquelin)) 25 mg PO DAILY [facility] Multivitamins/Minerals (Multivitamin With Minerals) 1 tablet [facility]ILY[facility] Ondansetron HCl (Zofran) 8 mg PO Q8H PRN PRN PRN Reason: NAUSEA Oxycodone HCl (Oxyir) 5 mg PO Q6H PRN PRN PRN Reason: Pain Score 6-10/10 Thiamine HCl (Vitamin B1) [facility] Stop: 04/24/19 08:01 Last Admin: 04/21/19 16:58 Dose: Not Given Documented by: Assessment/Plan This patient was seen in conjunction with Kennedy LAN. I have independently interviewed and examined the patient and reviewed pertinent history, examination findings, laboratory and plan of management. I have reviewed the note and agree with the documented findings with the few additional points. In brief, patient is admitted for acute encephalopathy most probably hepatic encephalopathy along with metabolic encephalopathy: Ammonia level is elevated. Patient has elevated INR 2.4, total bili normal, AST 47, ALT 14, CK 233. Albumin 1.5, globulin 5.5 suggestive of reversal of A/G ratio. Patient is on Eliquis for paroxysmal A. fib. Echo in February 2019 shows LV systolic function EF 55% lower limit of normal. No regional wall motion abnormality. Moderately dilated RV with mild to moderate global RV systolic dysfunction. LA severely enlarged. Right atrium moderately enlarged. Echo finding is consistent with right-sided heart failure along with diastolic heart failure/nonischemic cardiomyopathy. Started on lactulose and Xifaxan. Monitor LFT. Patient also has acute kidney injury on CKD stage III. Previous BUN/creatinine February 2019 37/1.49. Currently 47/2.3. Hold diuretics and nephrotoxic medication. Monitor intake and output and daily electrolytes and kidney function. Patient also had fall yesterday. PT OT Patient has chronic nonhealing ulcer of the back after back surgery. Wound care nurse consulted. Patient has chronic microcytic anemia and history of non-Hodgkin's lymphoma status post splenectomy. He follows Dr. Contreras I have discussed my assessment with Kennedy LAN and orders have been reviewed. Clinical Impression(s) from Imaging Studies Brain CT 04/21/19 12:04 IMPRESSION: Chronic involutional changes of the brain. Chest X-Ray 04/21/19 12:04 IMPRESSION: Cardia megaly. Foot X-Ray 04/21/19 12:07 IMPRESSION: Diffuse soft tissue swelling and vascular calcification. Hammertoe deformity of the metatarsophalangeal joints. No fracture is seen. And Code Visit Inpatient E&M: [id number] Init Hosp L3
[2019-04-21] MEDS: 0.9% Normal Saline 1,000 ML 75 ML IV (17:13)
[2019-04-21] MEDS: Lactulose 20 GM/30 ML UDC PO (17:13)
[2019-04-21 17:35] LABS: Magnesium 2.7 mg/dL (1.6-2.6); Phosphorus 4.7 mg/dL (2.5-4.9)
[2019-04-21] MEDS: oxyCODONE 5 MG Tablet PO (18:00)
[2019-04-21] MEDS: APIXABAN 2.5 MG TABLET PO (21:26)
[2019-04-22] VITALS (15 sets, daily range): BP systolic 103–131; BP diastolic 51–78; PULSE 66–97; RESP 17–20; TEMP 36.7–37.2; O2SAT 92–98
[2019-04-22] MEDS: oxyCODONE 5 MG Tablet PO ×4 (00:06→22:26)
[2019-04-22 05:33] LABS: Absolute Lymphocyte Count 1.53 X10^3/uL (0.83-4.51); Absolute Neutrophil Count 5.6 X10^3/uL (2.0-7.7); Basophil# 0.04 X10^3/uL; Basophil% 0.4 % (0-1); Eosinophil# 0.21 X10^3/uL; Eosinophils% 2.3 % (0-5); Hematocrit 19.9 % (40-54); Hemoglobin 6.5 g/dL (13.0-16.5); Lymphocyte # 1.53 X10^3/ul (4.0); Lymphocyte % 16.6 % (19-41); Mean Corp Hgb Conc 32.7 g/dL (32-36); Mean Corpuscular Hgb 37.1 pg (27.0-32.0); Mean Corpuscular Volume 113.7 fL (80-94); Mean Platelet Vol. 10.6 fl (6.2-12.0); Monocyte# 1.73 X10^3/uL; Monocyte% 18.8 % (0-10); NRBC Flagged by Analyzer 0.2 % (0-5); Neutrophil # 5.63 X10^3/uL (2.7-7.7); Neutrophil % 61.4 % (47-70); POSITIVE DIFFERENTIAL YES; POSITIVE MORPHOLOGY YES; Platelet Count 221 K/mm3 (150-450); RBC Distribution Width CV 19.9 % (11.6-14.6); RBC Distribution Width SD 81.3 fl (35.1-43.9); Red Blood Count 1.75 M/mm3 (4.6-6.2); White Blood Count 9.2 K/mm3 (4.4-11.0)
[2019-04-22 05:44] LABS: Differential Indicated SCAN CRITERIA MET
--- NOTE | 2019-04-22 05:55 | EKG12_ITS ---
Test Reason : AM EKG Blood Pressure : / mmHG Vent. Rate : 083 BPM Atrial Rate : 083 BPM P-R Int : 186 ms QRS Dur : 136 ms QT Int : 418 ms P-R-T Axes : 013 -54 062 degrees QTc Int : 491 ms Normal sinus rhythm Right bundle branch block Left anterior fascicular block Bifascicular block Abnormal ECG When compared with ECG of 21-APR-2019 12:46, MANUAL COMPARISON REQUIRED, DATA IS UNCONFIRMED Confirmed by NOHELIA HAYES, JIM ([id number]), state editor MENDEZ OSPINA ([id number]) on 04/27/2019 12:54:43 PM Referred By: Cisco Bueno Confirmed By:STERLING POZO MD
[2019-04-22 05:56] LABS: ALB/GLOB Ratio 0.3 RATIO (0.9-2.4); AST(SGOT) 39 U/L (15-37); Alanine Aminotransfer ALT/SGPT 13 U/L (16-61); Albumin, Serum 1.3 g/dL (3.2-5.0); Alkaline Phosphatase 111 U/L (45-117); Anion Gap 2 (5-15); BUN 44 mg/dL (7-18); BUN/Creat Ratio 21.4 RATIO (10-20); Calcium,Total 7.1 mg/dL (8.5-10.1); Chloride 106 mmol/L (98-107); Creatinine, Serum 2.06 mg/dL (0.70-1.30); EST Glomerular Filtration Rate 34 mL/min (>60); Est Glom Filt Rate - Afr Amer 41 mL/min (>60); Estimated Creatinine Clearance 29.98 ml/min; Glucose 87 mg/dL (74-106); Potassium 4.5 mmol/L (3.5-5.1); Protein, Total 6.3 g/dL (6.4-8.2); Sodium Level 140 mmol/L (136-145)
[2019-04-22 05:58] LABS: International Normalized Ratio 2.4; Prothrombin Time (Protime)PT. 25.9 SECONDS (11.7-14.9)
[2019-04-22] MEDS: 0.9% Normal Saline 1,000 ML 75 ML IV (06:17)
[2019-04-22 06:44] LABS: Anisocytosis 1+; Differential Comment SCANNED; Hypochromasia 2+; Polychromasia 1+
[2019-04-22 08:03] LABS: Iron 79 ug/dL (65-175); Iron Binding Capacity,Total 142 ug/dL (250-450); PERCENT IRON SATURATION 55.6 % (15.0-55.0)
[2019-04-22] MEDS: Folic Acid 1 MG Tablet PO (10:10)
[2019-04-22] MEDS: Magnesium Oxide 400 MG Tablet PO (10:10)
[2019-04-22] MEDS: Ferrous Sulfate 325 MG Tablet PO ×2 (10:10→16:03)
[2019-04-22] MEDS: Thiamine Hydrochloride 100 MG Tablet PO ×2 (10:10→16:03)
[2019-04-22] MEDS: Lactulose 20 GM/30 ML UDC PO ×3 (10:11→22:26)
[2019-04-22] MEDS: Metoprolol(XL)Succ 25 MG Tablet PO (10:11)
[2019-04-22] MEDS: APIXABAN 2.5 MG TABLET PO (10:11)
--- NOTE | 2019-04-22 11:52 | CASEMGMT ---
RN CM Assessment Presentation: encephalopathy Intro role of CM and purpose of RN CM assessment to patient and his . Pt is irritable, short with answers. RN CM took time to speak with him re: his previous admissio and home situation. Per pt and , they are managing at home, but pt has had falls. Demographics, PCP and Pharmacy verified. Pt states he did not feel well informed re: tests ordered. RN CM offered to have PA or physician speak with pt, He declined. Dr. Bray updated pt may have questions re: testing. PCP: Dr. Bernardo Lawson Specialists: Dr. Mauro, cardiology, Dr. Contreras, oncology, Dr. Haines, nephrology Preferred Pharmacy: [facility] Insurance: [facility] Prescription Benefit: yes LNOK: , Yolanda Marshall Living Arrangements: Lives in two story home with first floor set up. is available to help if needed. PT/OT ordered, evaluations pendig. Transportation: or pt's brother drive DME: rollator, walker, cane. Denies Home oxygen. HHC/SNF: TCU past, HHC in past Patient DC goals: Home on dc DC PLAN: Home on discharge. PT/OT evaluations pending. Pattie HARDY BSN ACM
--- NOTE | 2019-04-22 12:14 | NURSING ---
Addendum entered by Tatyana Sullivan 04/22/19 12:15: left arm Original Note: wound photo:
--- NOTE | 2019-04-22 12:17 | NURSING ---
wound photo: left lateral heel
--- NOTE | 2019-04-22 12:18 | NURSING ---
wound photo: right medial heel
--- NOTE | 2019-04-22 12:19 | NURSING ---
wound photo: mid lower back
--- NOTE | 2019-04-22 13:21 | PN_ITS ---
Patient Problems: Active and Suspected Problems (Last Reviewed 03/30/19 @ 15:16 by Micky Mauro MD) Hepatic encephalopathy (Acute) History of alcohol consumption (Acute) Elevated INR (Acute) Elevated troponin (Acute) Hyperammonemia (Acute) Contracture, right foot (Acute) Reason for Visit: confusion, tremor Subjective: Pt somewhat more alert, less drowsy, more talkative then yesterday. No abd pain, nausea, vomiting. 2 BM last night, 1 today - states normal consistency. Tremor in upper extremities less frequent. No fevers, chills, dizziness, LH. A/Ox3 Vitals/I&O's: Vital Signs Temp Pulse Resp BP Pulse Ox 98.1 F 88 18 117/77 98 04/22/19 13:05 04/22/19 13:05 04/22/19 13:05 04/22/19 13:05 04/22/19 13:05 Oxygen Flow Rate (L/min) 2 Oxygen Delivery Method Room Air Weight: 204 lb 12.951 oz Body Mass Index (BMI) 31.8 Intake and Output for Last 24 Hours 04/20/19 04/21/19 04/22/19 23:59 23:59 23:59 Intake Total 1503.75 / 1503.75 822.5 / 822.5 Output Total 500 / 500 Balance 1503.75 / 1503.75 322.5 / 322.5 General: Alert, Oriented x3, Cooperative HEENT: Atraumatic, PERRLA, EOMI, Normocephalic Neck: Supple, No JVD, Negative Carotid Bruits Lungs: Clear to auscultation, Normal air movement Cardiovascular: Regular rate, No murmurs Abdomen: Bowel Sounds Present, Soft, Non Tender Extremities: No edema, Capillary Refill Less than 3 Seconds Skin: No rashes, No breakdown Musculoskeletal: No Tenderness to Palpation of Joints or Extremities Neurological: Cranial nerves II-XII grossly intact, - - upper extremity tremor Psych/Mental Status: Normal Affect, Appropriate, Alert and oriented to time, place, person, mood and affect Laboratory Results 04/21/19 13:00: Sodium 139, Potassium 5.0, Chloride 102, Carbon Dioxide 31.0, Anion Gap 6, BUN 47 H, Creatinine 2.30 H, Estim Creat Clear Calc 26.85, Est GFR (MDRD) Af Amer 36 L, Est GFR (MDRD) Non-Af 30 L, BUN/Creatinine Ratio 20.4 H, Glucose 95, Calcium 7.3 L, Total Bilirubin 0.90, Direct Bilirubin 0.49 H, AST 47 H, ALT 14 L, Alkaline Phosphatase 124 H, Total Creatine Kinase 233, Troponin I 0.057 H, Total Protein 7.0, Albumin 1.5 L, Globulin 5.5 H 04/21/19 13:00: Phosphorus 4.7, Magnesium 2.7 H 04/21/19 13:40: Ammonia 81.0 H 04/21/19 13:50: Lactic Acid 1.6 04/21/19 13:50: PT 26.3 H, INR 2.4, APTT 40.5 H 04/21/19 17:30: Troponin I 0.082 H 04/21/19 19:55: Troponin I 0.081 H 04/22/19 05:20: WBC 9.2, RBC 1.75 L, Hgb 6.5 L, Hct 19.9 L, MCV 113.7 H, MCH 37.1 H, MCHC 32.7, RDW Std Deviation 81.3 H, RDW Coeff of Reggie 19.9 H, Plt Count 221, MPV 10.6, Immature Gran % (Auto) 0.500, Neut % (Auto) 61.4, Lymph % (Auto) 16.6 L, [place] % (Auto) 18.8 H, Eos % (Auto) 2.3, Baso % (Auto) 0.4, Absolute Neuts (auto) 5.6, Absolute Lymphs (auto) 1.53, Nucleated RBC % 0.2, Differential Comment SCANNED, Polychromasia 1+, Hypochromasia 2+, Anisocytosis 1+ 04/22/19 05:20: Sodium 140, Potassium 4.5, Chloride 106, Carbon Dioxide 32.0, Anion Gap 2 L, BUN 44 H, Creatinine 2.06 H, Estim Creat Clear Calc 29.98, Est GFR (MDRD) Af Amer 41 L, Est GFR (MDRD) Non-Af 34 L, BUN/Creatinine Ratio 21.4 H , Glucose 87, Calcium 7.1 L, Total Bilirubin 0.80, AST 39 H, ALT 13 L, Alkaline Phosphatase 111, Total Protein 6.3 L, Albumin 1.3 L, Globulin 5.0 H, Albumin/Globulin Ratio 0.3 L 04/22/19 05:20: Ammonia 52.0 H 04/22/19 05:20: PT 25.9 H, INR 2.4 04/22/19 05:20: Iron 79, TIBC 142 L, Iron Saturation 55.6 H 04/22/19 06:25: Blood Type O POSITIVE, Antibody Screen NEGATIVE, Crossmatch See Detail Current Medications Cholecalciferol (Vitamin [facility]) [facility] Last Admin: 04/22/19 10:10 Dose: 1,000 unit Documented by: Ferrous Sulfate (Ferrous Sulfate) [facility] Last Admin: 04/22/19 10:10 Dose: 325 mg Documented by: Folic Acid (Folic Acid) 1 mg PO DAILY@0800 [facility] Stop: 04/23/19 08:01 Last Admin: 04/22/19 10:10 Dose: 1 mg Documented by: Sodium Chloride () 1,000 mls @ 75 mls/hr IV .[id number] [facility] Last Infusion: 04/22/19 13:09 Dose: 75 mls/hr Documented by: Sodium Chloride () 250 mls @ 15 mls/hr IV .[id number] PRN PRN Reason: Saline Flush Sodium Chloride () 250 mls @ 15 mls/hr IV .[id number] PRN PRN Reason: Additional IVPB Infusion Lactulose (Chronulac, Cephulac) 20 gm PO TID [facility] Lorazepam (Ativan) 2 mg PO Q2H PRN PRN; Protocol PRN Reason: CIWA score > 8 but <15 Lorazepam (Ativan) 2 mg PO UD PRN; Protocol PRN Reason: CIWA score >/=15. Lorazepam (Ativan) 2 mg IV Q2H PRN PRN; Protocol PRN Reason: CIWA score > 8 but <15 Lorazepam (Ativan) 2 mg IV UD PRN; Protocol PRN Reason: CIWA score >/=15. Magnesium Oxide (Mag-Ox 400) 400 mg PO DAILY@0800 [facility] Last Admin: 04/22/19 10:10 Dose: 400 mg Documented by: Metoprolol Succinate (Toprol Xl (Beta Yaquelin)) 25 mg PO DAILY [facility] Last Admin: 04/22/19 10:11 Dose: 25 mg Documented by: Multivitamins/Minerals (Multivitamin With Minerals) [facility] Last Admin: 04/22/19 10:10 Dose: Not Given Documented by: Ondansetron HCl (Zofran) 8 mg PO Q8H PRN PRN PRN Reason: NAUSEA Oxycodone HCl (Oxyir) 5 mg PO Q6H PRN PRN PRN Reason: Pain Score 6-10/10 Last Admin: 04/22/19 09:11 Dose: 5 mg Documented by: Sodium Chloride () 10 - 40 ml IV UD PRN PRN Reason: SALINE FLUSH Thiamine HCl (Vitamin B1) [facility] Stop: 04/24/19 08:01 Last Admin: 04/22/19 10:10 Dose: 100 mg Documented by: STROKE Vital Signs/Narrative: Vital Signs Temp Pulse Resp BP Pulse Ox 04/22/19 13:05 98.1 F 88 18 117/77 98 04/22/19 12: 98.3 F 72 18 131/70 H 92 04/22/19 11:19 98.1 F 84 20 H 103/57 L 95 04/22/19 10:19 98.0 F 89 18 116/51 L 93 04/22/19 10:11 89 04/22/19 10:04 98.2 F 89 18 111/53 L 92 Medical Necessity - Tobacco Use Smoking Status: Former smoker Tobacco Use: Non-smoker Assessment/Plan All Active Problems (Last Reviewed 03/30/19 @ 15:16 by Micky Mauro MD) Hepatic encephalopathy (Acute) History of alcohol consumption (Acute) Elevated INR (Acute) Elevated troponin (Acute) Hyperammonemia (Acute) Contracture, right foot (Acute) Non-ischemic cardiomyopathy (Resolved) 1. Hepatic encephalopathy - 2/2 alcoholism. Ammonia 81 --> 52. Tremor present but improved. Mentation improving. Increased Presented with increasing confusion and weakness: temporarily holding his gabapentin, fentanyl, and dilaudid. PRN pain medications ordered, titrate up from there if mentation ok. hold statin. total CK normal. -CT brain chronic changes, CXR cardiomegaly, UA negative. -INR 2.4 2/2 liver dysfunction -RUQ US done. Ascites, heterogenous liver appearance -Titrate up lactulose to 3 loose stools today. 2. BRIANA - likely hepatorenal, consult Dr. Haines, hold nephrotoxins. Gentle IV fluids (hx CM). Improving. 3. Alcoholism - drinks 5 shots vodka nightly. Initiate CIWA protocol, PRN ativan, IV thiamine, po folate, MVI. Check Mag/phos. He expresses no intention of quitting and states he has never had a drinking problem. 4. Indeterminate troponin - possibly 2/2 BRIANA, repeat without significant elevation, repeat EKG negative. 5. Hx DVT/PE - hod eliquis with hemoccult stools. autoanticoagulated. 6. Chronic anemia - pt of Dr. Contreras. Recent + Hemoccult. Stop eliquis. INR 2.4 from liver failure. Consider Gen Surg c/s for GI workup. Recent bone marrow bx negative for Multiple myeloma. Macrocytic. Recent Folate and B12 with no deficiency. Iron normal, Sat high, TIBC low. Continue PO iron. Hgb 7.7--> 6.5. T&C 1 unit PRBC. 7. Debility / Fall - ankle pain - xray negative. 8. Chronic back wound - follows at wound care center - wound care consult. 9. Hx nonischemic CM, HTN, HLD, pulmonary htn - lasix/aldactone held for BRIANA. 10. Hx pAfib/pSVT - metoprolol. Again eliquis held for #6. 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 Hx non hodgkins lymphoma, hodgkins lymphoma - in remission. 13. Recent bone marrow bx - negative for multiple myeloma. DC planning: PTOT DVT ppx: eliquis held. inr 2.4 SCDs. This patient was seen by Kennedy Mckeon PA-C under the supervision of Dr. Bray
--- NOTE | 2019-04-22 13:26 | CON.PCM_ITS ---
Problem List (1) Acute kidney injury superimposed on chronic kidney disease Status: Chronic Consultation - Renal 04/22/19 PCP/ Referring MD: Requesting physician: Dr Bueno Primary care physician: Bernardo Lawson DO Reason for Consultation:: BRIANA - History of Present Illness History of Present Illness: The patient is a 74 year old M with known to us. Known history of CKD stage III with baseline creatinine around 1.3-1.5. Admitted to the hospital with confusion. Diagnosed with possible hepatic encephalopathy. New onset cirrhosis likely related to alcohol. Renal consulted for acute renal failure. Baseline creatinine is around 1.5 and this increased to 2.3 at the time of admission. Severely anemic. Receiving blood transfusion now. Has moderate amount of lower extremity edema and abdominal distention. . - Allergies Allergies: Allergies chlorthalidone Allergy (Verified 04/21/19 11:32) Unknown ramipril [From Altace] Allergy (Verified 04/21/19 11:32) Unknown sulfamethoxazole [From Bactrim] Allergy (Verified 04/21/19 11:32) Other trazodone Allergy (Verified 04/21/19 11:32) Unknown trimethoprim [From Bactrim] Allergy (Verified 04/21/19 11:32) Other prednisone Adverse Reaction (Verified 04/21/19 11:32) Swelling only in big doses - Current Medications Current Medications: Current Medications Cholecalciferol (Vitamin D) 1,000 unit PO DAILYCM [facility] Last Admin: 04/22/19 10:10 Dose: 1,000 unit Documented by: Ferrous Sulfate (Ferrous Sulfate) 325 mg PO BIDCM [facility] Last Admin: 04/22/19 10:10 Dose: 325 mg Documented by: Folic Acid (Folic Acid) 1 mg PO DAILY@0800 [facility] Stop: 04/23/19 08:01 Last Admin: 04/22/19 10:10 Dose: 1 mg Documented by: Furosemide (Lasix) 40 mg PO BID@1000,1800 [facility] Sodium Chloride () 1,000 mls @ 75 mls/hr IV .[id number] [facility] Last Infusion: 04/22/19 13:09 Dose: 75 mls/hr Documented by: Sodium Chloride () 250 mls @ 15 mls/hr IV .[id number] PRN PRN Reason: Saline Flush Sodium Chloride () 250 mls @ 15 mls/hr IV .[id number] PRN PRN Reason: Additional IVPB Infusion Lactulose (Chronulac, Cephulac) 20 gm PO TID [facility] Lorazepam (Ativan) 2 mg PO Q2H PRN PRN; Protocol PRN Reason: CIWA score > 8 but <15 Lorazepam (Ativan) 2 mg PO UD PRN; Protocol PRN Reason: CIWA score >/=15. Lorazepam (Ativan) 2 mg IV Q2H PRN PRN; Protocol PRN Reason: CIWA score > 8 but <15 Lorazepam (Ativan) 2 mg IV UD PRN; Protocol PRN Reason: CIWA score >/=15. Magnesium Oxide (Mag-Ox 400) 400 mg PO DAILY@0800 [facility] Last Admin: 04/22/19 10:10 Dose: 400 mg Documented by: Metoprolol Succinate (Toprol Xl (Beta Yaquelin)) 25 mg PO DAILY [facility] Last Admin: 04/22/19 10:11 Dose: 25 mg Documented by: Multivitamins/Minerals ([facility]ivitamin With Minerals) [facility] Last Admin: 04/22/19 10:10 Dose: Not Given Documented by: Ondansetron HCl (Zofran) 8 mg PO Q8H PRN PRN PRN Reason: NAUSEA Oxycodone HCl (Oxyir) 5 mg PO Q6H PRN PRN PRN Reason: Pain Score 6-10/10 Last Admin: 04/22/19 09:11 Dose: 5 mg Documented by: Sodium Chloride () 10 - 40 ml IV UD PRN PRN Reason: SALINE FLUSH Thiamine HCl (Vitamin B1) 100 mg PO BIDCM [facility] Stop: 04/24/19 08:01 Last Admin: 04/22/19 10:10 Dose: 100 mg Documented by: - Past Medical History Past Medical History (Chronic Problems): Chronic Problems (Last Reviewed 03/30/19 @ 15:16 by Micky Mauro MD) 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 (Chronic) Acute kidney injury superimposed on chronic kidney disease (Chronic) Chronic anemia (Chronic) Acute on chronic diastolic (congestive) heart failure (Chronic) Paroxysmal atrial fibrillation (Chronic) PSVT (paroxysmal supraventricular tachycardia) (Chronic) Secondary pulmonary arterial hypertension (Chronic) Right bundle branch block (RBBB) (Chronic) Essential (primary) hypertension (Chronic) Hyperlipidemia (Chronic) Pulmonary embolism (Chronic) History of non-Hodgkin's lymphoma (Chronic) Anemia (Chronic) Hypogammaglobulinemia (Chronic) Open wound of lower back (Chronic) with muscle and bone exposed s/p surgical debridement of abscess s/p lumbar spine surgery - Past Surgical History Surgical History: colectomy - Partial., - - Splenectomy, Ileostomy reversal, L4- 5 discectomy. Wound debridement 03/04/2017, 05/14/2017 at [facility]> - Social History Smoking Status: Former smoker Alcohol: Heavy Drugs: None - Family History Maternal Family History: Family History (Last Reviewed 04/21/19 @ 15:40 by RIKY Beaulieu) Father Diabetes Heart disease Mother Heart disease History Items: Heart Disease Paternal Family History: Family History (Last Reviewed 04/21/19 @ 15:40 by RIKY Beaulieu) Father Diabetes Heart disease Mother Heart disease History Items: Diabetes Review of Systems Constitutional: Denies: Chills, Fever, Weight Change HEENT: Denies: Head Aches, Sinus Congestion, Sinus Drainage Cardiovascular: Denies: Chest Pain, Palpitations Respiratory: Denies: Cough, Shortness of breath at rest, Sputum production Gastrointestinal: Denies: Abdominal Pain, Nausea, Vomiting Genitourinary: Denies: Dysuria Musculoskeletal: Denies: Joint Pain, Joint Tenderness Skin: Denies: Rash, Wounds Neurological: Denies: Numbness, Tingling, Focal weakness Psychiatric: Denies: Anxiety, Depression, Homicidal Ideations, Suicidal Ideations Hematologic/ Lymphatic: Denies: Easy Bruising, Easy Bleeding Patient Problems: Active and Suspected Problems (Last Reviewed 03/30/19 @ 15:16 by Micky Mauro MD) Hepatic encephalopathy (Acute) History of alcohol consumption (Acute) Elevated INR (Acute) Elevated troponin (Acute) Hyperammonemia (Acute) Contracture, right foot (Acute) - Physical Exam Vitals/I&O's: Vital Signs Temp Pulse Resp BP Pulse Ox 98.1 F 88 18 117/77 98 04/22/19 13:05 04/22/19 13:05 04/22/19 13:05 04/22/19 13:05 04/22/19 13:05 Oxygen Flow Rate (L/min) 2 Oxygen Delivery Method Room Air Weight: 92.9 kg Body Mass Index (BMI) 31.8 Intake and Output for Last 24 Hours 04/20/19 04/21/19 04/22/19 23:59 23:59 23:59 Intake Total 1503.75 / 1503.75 822.5 / 822.5 Output Total 500 / 500 Balance 1503.75 / 1503.75 322.5 / 322.5 General: Alert, Oriented x3, Cooperative HEENT: Atraumatic, PERRLA, EOMI, Normocephalic Neck: Supple, No JVD, Negative Carotid Bruits Lungs: Clear to auscultation, Normal air movement Cardiovascular: Regular rate, No murmurs Abdomen: Bowel Sounds Present, Soft, Non Tender Extremities: Capillary Refill Less than 3 Seconds, Edema Skin: No rashes, No breakdown Musculoskeletal: No Tenderness to Palpation of Joints or Extremities Neurological: Cranial nerves II-XII grossly intact Psych/Mental Status: Normal Affect, Appropriate Laboratory Results 04/21/19 13:00: Sodium 139, Potassium 5.0, Chloride 102, Carbon Dioxide 31.0, Anion Gap 6, BUN 47 H, Creatinine 2.30 H, Estim Creat Clear Calc 26.85, Est GFR (MDRD) Af Amer 36 L, Est GFR (MDRD) Non-Af 30 L, BUN/Creatinine Ratio 20.4 H, Glucose 95, Calcium 7.3 L, Total Bilirubin 0.90, Direct Bilirubin 0.49 H, AST 47 H, ALT 14 L, Alkaline Phosphatase 124 H, Total Creatine Kinase 233, Troponin I 0.057 H, Total Protein 7.0, Albumin 1.5 L, Globulin 5.5 H 04/21/19 13:00: Phosphorus 4.7, Magnesium 2.7 H 04/21/19 13:40: Ammonia 81.0 H 04/21/19 13:50: Lactic Acid 1.6 04/21/19 13:50: PT 26.3 H, INR 2.4, APTT 40.5 H 04/21/19 17:30: Troponin I 0.082 H 04/21/19 19:55: Troponin I 0.081 H 04/22/19 05:20: WBC 9.2, RBC 1.75 L, Hgb 6.5 L, Hct 19.9 L, MCV 113.7 H, MCH 37.1 H, MCHC 32.7, RDW Std Deviation 81.3 H, RDW Coeff of Reggie 19.9 H, Plt Count 221, MPV 10.6, Immature Gran % (Auto) 0.500, Neut % (Auto) 61.4, Lymph % (Auto) 16.6 L, [place] % (Auto) 18.8 H, Eos % (Auto) 2.3, Baso % (Auto) 0.4, Absolute Neuts (auto) 5.6, Absolute Lymphs (auto) 1.53, Nucleated RBC % 0.2, Differential Comment SCANNED, Polychromasia 1+, Hypochromasia 2+, Anisocytosis 1+ 04/22/19 05:20: Sodium 140, Potassium 4.5, Chloride 106, Carbon Dioxide 32.0, Anion Gap 2 L, BUN 44 H, Creatinine 2.06 H, Estim Creat Clear Calc 29.98, Est GFR (MDRD) Af Amer 41 L, Est GFR (MDRD) Non-Af 34 L, BUN/Creatinine Ratio 21.4 H , Glucose 87, Calcium 7.1 L, Total Bilirubin 0.80, AST 39 H, ALT 13 L, Alkaline Phosphatase 111, Total Protein 6.3 L, Albumin 1.3 L, Globulin 5.0 H, Albumin/Globulin Ratio 0.3 L 04/22/19 05:20: Ammonia 52.0 H 04/22/19 05:20: PT 25.9 H, INR 2.4 04/22/19 05:20: Iron 79, TIBC 142 L, Iron Saturation 55.6 H 04/22/19 06:25: Blood Type O POSITIVE, Antibody Screen NEGATIVE, Crossmatch See Detail Current Medications Cholecalcifer[facility] ([facility]itamin [facility]) [facility] Last Admin: 04/22/19 10:10 Dose: 1,000 unit Documented by: Ferrous Sulfate (Ferrous Sulfate) [facility] Last Admin: 04/22/19 10:10 Dose: 325 mg Documented by: Folic Acid (Folic Acid) 1 mg PO DAILY@0800 [facility] Stop: 04/23/19 08:01 Last Admin: 04/22/19 10:10 Dose: 1 mg Documented by: Furosemide (Lasix) 40 mg PO BID@1000,1800 [facility] Sodium Chloride () 1,000 mls @ 75 mls/hr IV .[id number] [facility] Last Infusion: 04/22/19 13:09 Dose: 75 mls/hr Documented by: Sodium Chloride () 250 mls @ 15 mls/hr IV .[id number] PRN PRN Reason: Saline Flush Sodium Chloride () 250 mls @ 15 mls/hr IV .[id number] PRN PRN Reason: Additional IVPB Infusion Lactulose (Chronulac, Cephulac) 20 gm PO TID [facility] Lorazepam (Ativan) 2 mg PO Q2H PRN PRN; Protocol PRN Reason: CIWA score > 8 but <15 Lorazepam (Ativan) 2 mg PO UD PRN; Protocol PRN Reason: CIWA score >/=15. Lorazepam (Ativan) 2 mg IV Q2H PRN PRN; Protocol PRN Reason: CIWA score > 8 but <15 Lorazepam (Ativan) 2 mg IV UD PRN; Protocol PRN Reason: CIWA score >/=15. Magnesium Oxide (Mag-Ox 400) 400 mg PO DAILY@0800 [facility] Last Admin: 04/22/19 10:10 Dose: 400 mg Documented by: Metoprolol Succinate (Toprol Xl (Beta Yaquelin)) 25 mg PO DAILY [facility] Last Admin: 04/22/19 10:11 Dose: 25 mg Documented by: Multivitamins/Minerals (Multivitamin With Minerals) [facility] Last Admin: 04/22/19 10:10 Dose: Not Given Documented by: Ondansetron HCl (Zofran) 8 mg PO Q8H PRN PRN PRN Reason: NAUSEA Oxycodone HCl (Oxyir) 5 mg PO Q6H PRN PRN PRN Reason: Pain Score 6-10/10 Last Admin: 04/22/19 09:11 Dose: 5 mg Documented by: Sodium Chloride () 10 - 40 ml IV UD PRN PRN Reason: SALINE FLUSH Thiamine HCl (Vitamin B1) [facility] Stop: 04/24/19 08:01 Last Admin: 04/22/19 10:10 Dose: 100 mg Documented by: Assessment/Plan All Active Problems (Last Reviewed 03/30/19 @ 15:16 by Micky Mauro MD) Hepatic encephalopathy (Acute) History of alcohol consumption (Acute) Elevated INR (Acute) Elevated troponin (Acute) Hyperammonemia (Acute) Contracture, right foot (Acute) Non-ischemic cardiomyopathy (Resolved) Acute on chronic renal failure. Likely hemodynamic. Abdominal ultrasound without any hydronephrosis. Urine analysis is fairly benign. Blood pressure is acceptable. Creatinine is better today. Anemia. Severe. He had significant persistent erythropoietin as outpatient. Recently saw hematology here. Bone marrow biopsy was done on the third of this month. Reviewed report. Possible plasma cell dyscrasia. Edema. Resume oral Lasix 40 mg twice daily. Cirrhosis. Apparently he has been drinking more recently. Advised about alcohol cessation.
--- NOTE | 2019-04-22 16:31 | US_ITS ---
STUDY: ABDOMINAL ULTRASOUND - RIGHT UPPER QUADRANT REASON FOR VISIT: Male, 74 years old patient has a history of cirrhosis. TECHNIQUE: Ultrasound evaluation of the right upper quadrant was performed with real-time and static celaya-scale imaging. TECHNICAL QUALITY: Adequate. COMPARISON: None. FINDINGS: Liver: The liver measures 15.8 cm. There is a heterogeneous echogenicity of the liver. The bile ducts are within normal limits. There is hepatic color flow. The direction of portal flow is hepatopetal. There is a 3.9 cm x 3 cm x 2.6 cm cyst in the dome of the right lower liver. Gallbladder: Normal distended gallbladder. The gallbladder wall is slightly thickened and measures 3.7 mm. There is a negative sonographic Fall''s sign. There is no pericholecystic fluid. There are no gallstones. Common Bile Duct (C.B.D.): The common bile duct is not visualized due to overlying bowel gas. Pancreas: There is nonvisualization of the pancreas due to overlying bowel gas. Right Kidney: Normal size of the right kidney. The right kidney measures 9.5 cm x 5.5 cm x 3.5 cm. There is thinning of the renal cortex. The right cortex measures 0.8 cm. There is a 2.5 cm x 2.8 cm x 2.3 cm cyst. There is no right hydronephrosis. Ascites. US/Abdomen Limited IMPRESSION: Heterogeneous appearance of the liver. Ascites. Electronically Signed: Shen Echeverria, at 12:31 EST , Service support ,
[2019-04-22] MEDS: Furosemide 40 MG Tablet PO (17:30)
[2019-04-22] MEDS: MELATONIN 3 MG TABLET PO (23:27)
[2019-04-23] MEDS: 0.9% Normal Saline 1,000 ML 75 ML IV (01:16)
[2019-04-23 03:20] VITALS: BP 94/50; PULSE 89; PULSE 95; RESP 18; TEMP 36.7; O2SAT 95
[2019-04-23] MEDS: oxyCODONE 5 MG Tablet PO ×2 (05:57→13:41)
[2019-04-23] MEDS: Lactulose 20 GM/30 ML UDC PO (05:58)
[2019-04-23 06:33] LABS: Absolute Lymphocyte Count 1.35 X10^3/uL (0.83-4.51); Absolute Neutrophil Count 6.5 X10^3/uL (2.0-7.7); Basophil# 0.04 X10^3/uL; Basophil% 0.4 % (0-1); Eosinophil# 0.22 X10^3/uL; Eosinophils% 2.2 % (0-5); Hematocrit 24.3 % (40-54); Hemoglobin 8.1 g/dL (13.0-16.5); Lymphocyte # 1.35 X10^3/ul (4.0); Lymphocyte % 13.6 % (19-41); Mean Corp Hgb Conc 33.3 g/dL (32-36); Mean Corpuscular Hgb 35.8 pg (27.0-32.0); Mean Corpuscular Volume 107.5 fL (80-94); Mean Platelet Vol. 10.3 fl (6.2-12.0); Monocyte# 1.78 X10^3/uL; Monocyte% 17.9 % (0-10); NRBC Flagged by Analyzer 0.2 % (0-5); Neutrophil # 6.51 X10^3/uL (2.7-7.7); Neutrophil % 65.4 % (47-70); POSITIVE DIFFERENTIAL YES; POSITIVE MORPHOLOGY YES; Platelet Count 286 K/mm3 (150-450); RBC Distribution Width CV 22.5 % (11.6-14.6); RBC Distribution Width SD 87.8 fl (35.1-43.9); Red Blood Count 2.26 M/mm3 (4.6-6.2)
[2019-04-23 06:37] LABS: Differential Indicated SCAN CRITERIA MET
[2019-04-23 06:40] LABS: International Normalized Ratio 1.8; Prothrombin Time (Protime)PT. 21.1 SECONDS (11.7-14.9)
[2019-04-23 06:53] VITALS: PULSE 88
[2019-04-23 06:53] LABS: ALB/GLOB Ratio 0.3 RATIO (0.9-2.4); AST(SGOT) 51 U/L (15-37); Alanine Aminotransfer ALT/SGPT 15 U/L (16-61); Albumin, Serum 1.5 g/dL (3.2-5.0); Alkaline Phosphatase 116 U/L (45-117); Anion Gap 4 (5-15); BUN 36 mg/dL (7-18); BUN/Creat Ratio 19.1 RATIO (10-20); Calcium,Total 7.6 mg/dL (8.5-10.1); Chloride 111 mmol/L (98-107); Creatinine, Serum 1.88 mg/dL (0.70-1.30); EST Glomerular Filtration Rate 37 mL/min (>60); Est Glom Filt Rate - Afr Amer 45 mL/min (>60); Estimated Creatinine Clearance 32.85 ml/min; Globulin 5.3 g/dL (2.2-4.2); Glucose 98 mg/dL (74-106); Potassium 3.9 mmol/L (3.5-5.1); Protein, Total 6.8 g/dL (6.4-8.2); Sodium Level 145 mmol/L (136-145)
[2019-04-23 07:28] LABS: Anisocytosis 1+; Differential Comment SCANNED
[2019-04-23 09:20] VITALS: BP 115/50; PULSE 91; RESP 20; TEMP 37.1; O2SAT 100
[2019-04-23 10:17] VITALS: PULSE 91
[2019-04-23] MEDS: Multivitamins,Ther W-Minerals Tablet 1 TABLET PO (10:17)
[2019-04-23] MEDS: Metoprolol(XL)Succ 25 MG Tablet PO (10:17)
[2019-04-23] MEDS: Ferrous Sulfate 325 MG Tablet PO (10:17)
[2019-04-23] MEDS: Magnesium Oxide 400 MG Tablet PO (10:17)
[2019-04-23] MEDS: Furosemide 40 MG Tablet PO (10:17)
[2019-04-23] MEDS: Thiamine Hydrochloride 100 MG Tablet PO (10:17)
[2019-04-23] MEDS: Folic Acid 1 MG Tablet PO (10:18)
--- NOTE | 2019-04-23 11:47 | PCM.DC ---
- Discharge Diagnoses Current Active Problems: Current Active and Chronic Problems (Last Reviewed 03/30/19 @ 15:16 by Micky Mauro MD) Hepatic encephalopathy (Acute) History of alcohol consumption (Acute) Acute kidney injury superimposed on chronic kidney disease (Chronic) Elevated INR (Acute) Elevated troponin (Acute) Hyperammonemia (Acute) Contracture, right foot (Acute) Chronic anemia (Chronic) You will use the following diet at home:: No restrictions Discharge Activity: Return to Normal Activity Call your doctor if you observe: Shortness of breath, Dizziness, Fainting spells, Chest pain Additional Instructions: HOLD home Eliquis regimen until further evaluation by hematology. May resume upon approval per hematology. Allergies/Adverse Reactions: Allergies chlorthalidone Allergy (Verified 04/21/19 11:32) Unknown ramipril [From Altace] Allergy (Verified 04/21/19 11:32) Unknown sulfamethoxazole [From Bactrim] Allergy (Verified 04/21/19 11:32) Other trazodone Allergy (Verified 04/21/19 11:32) Unknown trimethoprim [From Bactrim] Allergy (Verified 04/21/19 11:32) Other prednisone Adverse Reaction (Verified 04/21/19 11:32) Swelling only in big doses Medications to take at Discharge Folic Acid 1 mg PO DAILY@0800 02/05/16 Magnesium Oxide [Magnesium] 400 mg PO DAILY@0800 02/05/16 Vit C/E/Zn/Coppr/Lutein/Zeaxan [Preservision Areds 2 Softgel] 1 ea PO BID 07/04/17 ferrous fumarate 325 mg (106 mg iron) tablet 325 mg PO BID tab 08/27/17 Acetaminophen [Tylenol Tablet] 650 mg PO Q6H PRN PRN tab 06/18/18 atorvastatin 20 mg tablet 20 mg PO QHS #90 tab 07/14/18 Gabapentin 600 mg PO QHS 02/28/19 Cholecalciferol (Vitamin D3) [Vitamin D3] 1,000 unit PO DAILY 03/16/19 metoprolol succinate 25 mg tablet,extended release 24 hr 25 mg PO DAILY #90 tab 03/30/19 Apixaban [Eliquis] 2.5 mg PO BID 04/07/19 Gabapentin [Neurontin] 300 mg PO DAILY 04/21/19 Furosemide [Lasix] 40 mg PO BID@1000,1800 #60 tab 04/23/19 Lactulose [Chronulac] 20 gm PO BID #60 udc 04/23/19 The following prescriptions were given: Lactulose [Chronulac] 20 gm PO BID #60 udc Transmission Status: Pending to [facility] Furosemide [Lasix] 40 mg PO BID@1000,1800 #60 tab Transmission Status: Pending to [facility] Primary Care Physician: Bernardo Lawson DO [Primary Care Provider] - Please follow up with your Primary Care Physician in: 1 Week Test Results: Test results from this visit will be discussed in further detail at your follow-up appointment, if applicable. Please Follow Up With: Nate Contreras MD When: 1 Week Please Follow Up With: Sera Haines MD When: 1 Week Please Follow Up With: Micky Mauro MD When: As scheduled, 05/21/2019 Proposed Discharge Date: 04/23/19
--- NOTE | 2019-04-23 12:59 | DS.PCM_ITS ---
Discharge Date and Diagnosis Date of Admission: 04/21/19 Date of Discharge: 04/23/19 - Primary Discharge Diagnosis Active and Suspected Problems (Last Reviewed 03/30/19 @ 15:16 by Micky Mauro MD) 1. Hepatic encephalopathy secondary to chronic alcohol abuse 2. Acute kidney injury on chronic kidney disease stage III 3. Chronic alcoholism 4. Indeterminate troponin, ACS ruled out 5. History of DVT/PE 6. Acute on chronic anemia 7. History of paroxysmal atrial fibrillation/paroxysmal SVT 8. History of nonischemic cardiomyopathy 9. Hypertension 10. 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 (Chronic) Acute kidney injury superimposed on chronic kidney disease (Chronic) Chronic anemia (Chronic) Acute on chronic diastolic (congestive) heart failure (Chronic) Paroxysmal atrial fibrillation (Chronic) PSVT (paroxysmal supraventricular tachycardia) (Chronic) Secondary pulmonary arterial hypertension (Chronic) Right bundle branch block (RBBB) (Chronic) Essential (primary) hypertension (Chronic) Hyperlipidemia (Chronic) Pulmonary embolism (Chronic) History of non-Hodgkin's lymphoma (Chronic) Anemia (Chronic) Hypogammaglobulinemia (Chronic) Open wound of lower back (Chronic) with muscle and bone exposed s/p surgical debridement of abscess s/p lumbar spine surgery Hospital Course and Treatment Imaging Results: Diagnostic Data Brain CT 04/21/19 12:04 IMPRESSION: Chronic involutional changes of the brain. Electronically Signed: Shen Echeverria, at 14:44 EST , Service support , Chest X-Ray 04/21/19 12:04 IMPRESSION: Cardia ladariusly. Electronically Signed: Shen Echeverria, at 14:45 EST , Service support , Foot X-Ray 04/21/19 12:07 IMPRESSION: Diffuse soft tissue swelling and vascular calcification. Hammertoe deformity of the metatarsophalangeal joints. No fracture is seen. Electronically Signed: Shen Echeverria, at 14:48 EST , Service support , Abdomen Ultrasound 04/22/19 16:31 IMPRESSION: Heterogeneous appearance of the liver. Ascites. Electronically Signed: Shen Echeverria, at 12:31 EST , Service support , Consultations 04/21/19 16:31 Consult: Onc/Wound/gunner's mate Routine Comment: Dr. Irving/Dr. Haines- Nephrology Operations: None Procedures: None Summary of Care Provided: The patient is a 74 year old M admitted 04/21/2018 due to tremor. 1. Hepatic encephalopathy secondary to chronic alcohol abuse-ammonia 81 on admission, repeat 52. Encephalopathy resolved. Brain CT without acute process. Chest x-ray unremarkable. Urinalysis negative. Right upper quadrant ultrasound demonstrates ascites, heterogeneous liver appearance. Discharged on lactulose 20 mg twice daily. 2. Acute kidney injury on chronic kidney disease stage III-likely prerenal, improved. Home Lasix regimen decreased to 40 mg twice daily at discharge. Follow-up with nephrology in 1 week. 3. Chronic alcoholism-strongly encouraged cessation. 4. Indeterminate troponin, ACS ruled out-EKG without ST-T changes. Suspect secondary to acute kidney injury. 5. History of DVT/PE-continue to hold Eliquis at discharge pending further work- up for anemia. 6. Acute on chronic anemia-recent bone marrow biopsy negative for multiple myeloma. Following with hematology, Dr. Contreras. Recent Hemoccult positive stool 03/19/2019. Patient reports he had an upper and lower scope at [facility] in 2017 which did not demonstrate any etiology for anemia. He declines repeat scope during admission. Recommend continued outpatient follow-up with hematology. Patient did receive 1 unit PRBC for hemoglobin 6.5. Hemoglobin 8.1 at discharge. 7. History of paroxysmal atrial fibrillation/paroxysmal SVT-Eliquis on hold as noted above. Continue home metoprolol regimen. 8. History of nonischemic cardiomyopathy-echocardiogram February 2019 demonstrated an EF of 55%, moderate tricuspid valve insufficiency, pulmonary artery systolic pressure 46 mmHg. 9. Hypertension-stable, continue metoprolol regimen. 10. Hyperlipidemia-continue statin regimen. 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 History of non-Hodgkin's lymphoma General: Alert, Oriented x3, Cooperative HEENT: Atraumatic, PERRLA, EOMI, Normocephalic Neck: Supple, No JVD, Negative Carotid Bruits Lungs: Clear to auscultation, Normal air movement Cardiovascular: Regular rate, No murmurs Abdomen: Bowel Sounds Present, Soft, Non Tender Extremities: No edema, Capillary Refill Less than 3 Seconds Skin: No rashes, No breakdown Musculoskeletal: No Tenderness to Palpation of Joints or Extremities Neurological: Cranial nerves II-XII grossly intact Psych/Mental Status: Normal Affect, Appropriate Patient seen and examined prior to discharge. Physical assessment as noted above. Patient is stable for discharge with follow up recommendations as noted above. This patient was seen by DANNIELLE Melgar under the supervision of Dr. Bray. - Physical Exam Vitals/I&O's: Vital Signs Temp Pulse Resp BP Pulse Ox 98.8 F 91 20 H 115/50 L 100 04/23/19 09:20 04/23/19 10:17 04/23/19 09:20 04/23/19 09:20 04/23/19 09:20 Oxygen Flow Rate (L/min) 2 Oxygen Delivery Method Room Air Weight: 201 lb 0.985 oz Body Mass Index (BMI) 31.8 Intake and Output for Last 24 Hours 04/21/19 04/22/19 04/23/19 23:59 23:59 23:59 Intake Total 1503.75 / 1503.75 1062.5 / 1062.5 1852.5 / 1852.5 Output Total 500 / 500 325 / 325 Balance 1503.75 / 1503.75 562.5 / 562.5 1527.5 / 1527.5 Laboratory Results 04/22/19 06:25: Crossmatch See Detail 04/23/19 06:15: WBC 10.0, RBC 2.26 L, Hgb 8.1 L, Hct 24.3 L, MCV 107.5 H D, MCH 35.8 H, MCHC 33.3, RDW Std Deviation 87.8 H, RDW Coeff of Reggie 22.5 H, Plt Count 286, MPV 10.3, Immature Gran % (Auto) 0.500, Neut % (Auto) 65.4, Lymph % (Auto) 13.6 L, [place] % (Auto) 17.9 H, Eos % (Auto) 2.2, Baso % (Auto) 0.4, Absolute Neuts (auto) 6.5, Absolute Lymphs (auto) 1.35, Nucleated RBC % 0.2, Differential Comment SCANNED, Anisocytosis 1+ 04/23/19 06:15: Sodium 145, Potassium 3.9, Chloride 111 H, Carbon Dioxide 30.0, Anion Gap 4 L, BUN 36 H, Creatinine 1.88 H, Estim Creat Clear Calc 32.85, Est GFR (MDRD) Af Amer 45 L, Est GFR (MDRD) Non-Af 37 L, BUN/Creatinine Ratio 19.1, Glucose 98, Calcium 7.6 L, Total Bilirubin 0.80, AST 51 H, ALT 15 L, Alkaline Phosphatase 116, Total Protein 6.8, Albumin 1.5 L, Globulin 5.3 H, Albumin/Globulin Ratio 0.3 L 04/23/19 06:15: PT 21.1 H, INR 1.8 Current Medications Cholecalciferol (Vitamin D) [facility] Admin: 04/23/19 10:18 Dose: 1,000 unit Documented by: Ferrous Sulfate (Ferrous Sulfate) [facility] Last Admin: 04/23/19 10:17 Dose: 325 mg Documented by: Furosemide (Lasix) 40 mg PO BID@1000,1800 [facility] Last Admin: 04/23/19 10:17 Dose: 40 mg Documented by: Sodium Chloride () 1,000 mls @ 75 mls/hr IV .[id number] [facility] Last Admin: 04/23/19 01:16 Dose: 75 mls/hr Documented by: Sodium Chloride () 250 mls @ 15 mls/hr IV .[id number] PRN PRN Reason: Saline Flush Sodium Chloride () 250 mls @ 15 mls/hr IV .[id number] PRN PRN Reason: Additional IVPB Infusion Lactulose (Chronulac, Cephulac) 20 gm PO TID [facility] Last Admin: 04/23/19 05:58 Dose: 20 gm Documented by: Lorazepam (Ativan) 2 mg PO Q2H PRN PRN; Protocol PRN Reason: CIWA score > 8 but <15 Lorazepam (Ativan) 2 mg PO UD PRN; Protocol PRN Reason: CIWA score >/=15. Lorazepam (Ativan) 2 mg IV Q2H PRN PRN; Protocol PRN Reason: CIWA score > 8 but <15 Lorazepam (Ativan) 2 mg IV UD PRN; Protocol PRN Reason: CIWA score >/=15. Magnesium Oxide (Mag-Ox 400) 400 mg PO DAILY@0800 [facility] Last Admin: 04/23/19 10:17 Dose: 400 mg Documented by: Melatonin (Melatonin) 3 mg PO QHS PRN PRN PRN Reason: INSOMNIA Last Admin: 04/22/19 23:27 Dose: 3 mg Documented by: Metoprolol Succinate (Toprol Xl (Beta Yaquelin)) 25 mg PO DAILY [facility] Last Admin: 04/23/19 10:17 Dose: 25 mg Documented by: Multivitamins/Minerals (Multivitamin With Minerals) [facility] tablet [facility] Last Admin: 04/23/19 10:17 Dose: 1 tablet Documented by: Ondansetron HCl (Zofran) 8 mg PO Q8H PRN PRN PRN Reason: NAUSEA Oxycodone HCl (Oxyir) 5 mg PO Q6H PRN PRN PRN Reason: Pain Score 6-10/10 Last Admin: 04/23/19 05:57 Dose: 5 mg Documented by: Sodium Chloride () 10 - 40 ml IV UD PRN PRN Reason: SALINE FLUSH Thiamine HCl (Vitamin B1) [facility] Stop: 04/24/19 08:01 Last Admin: 04/23/19 10:17 Dose: 100 mg Documented by: Discharge Diet: No Restrictions Discharge Activity: Return to Normal Activity Call your doctor if you observe: Shortness of breath, Dizziness, Fainting s pells, Chest pain Home Medications: Medications to take at Discharge Folic Acid 1 mg PO DAILY@0800 02/05/16 Magnesium Oxide [Magnesium] 400 mg PO DAILY@0800 02/05/16 Vit C/E/Zn/Coppr/Lutein/Zeaxan [Preservision Areds 2 Softgel] 1 ea PO BID 07/04/17 ferrous fumarate 325 mg (106 mg iron) tablet 325 mg PO BID tab 08/27/17 Acetaminophen [Tylenol Tablet] 650 mg PO Q6H PRN PRN tab 06/18/18 atorvastatin 20 mg tablet 20 mg PO QHS #90 tab 07/14/18 Gabapentin 600 mg PO QHS 02/28/19 Cholecalciferol (Vitamin D3) [Vitamin D3] 1,000 unit PO DAILY 03/16/19 metoprolol succinate 25 mg tablet,extended release 24 hr 25 mg PO DAILY #90 tab 03/30/19 Apixaban [Eliquis] 2.5 mg PO BID 04/07/19 Gabapentin [Neurontin] 300 mg PO DAILY 04/21/19 Furosemide [Lasix] 40 mg PO BID@1000,1800 #60 tab 04/23/19 Lactulose [Chronulac] 20 gm PO BID #60 udc 04/23/19 Following Prescrptions Were Given to Patient: Lactulose [Chronulac] 20 gm PO BID #60 udc Transmission Status: Received by [facility] Furosemide [Lasix] 40 mg PO BID@1000,1800 #60 tab Transmission Status: Received by [facility] Primary Care Physician: Bernardo Lawson DO [Primary Care Provider] - Please follow up with your Primary Care Physician in: 1 Week Please Follow Up With: Nate Contreras MD When: 1 Week Please Follow Up With: Sera Haines MD When: 1 Week Please Follow Up With: Micky Mauro MD When: As scheduled, 05/21/2019 Disposition: Home Minutes spent on discharge:: 35 Patient Condition:: Stable Medical Necessity - Tobacco Use Smoking Status: Former smoker Tobacco Use: Non-smoker Meaningful Use Info Meaningful Use Diagnoses (Choose all that apply): None applicable
[2019-04-23 15:20] VITALS: BP 122/65; PULSE 80; RESP 18; TEMP 36.9; O2SAT 100
--- NOTE | 2019-04-23 15:26 | PCM.PN.REN ---
Subjective: no new complaints - Physical Exam Vitals/I&O's: Vital Signs Temp Pulse Resp BP Pulse Ox 98.8 F 91 20 H 115/50 L 100 04/23/19 09:20 04/23/19 10:17 04/23/19 09:20 04/23/19 09:20 04/23/19 09:20 Oxygen Flow Rate (L/min) 2 Oxygen Delivery Method Room Air Weight: 91.2 kg Body Mass Index (BMI) 31.8 Intake and Output for Last 24 Hours 04/21/19 04/22/19 04/23/19 23:59 23:59 23:59 Intake Total 1503.75 / 1503.75 1062.5 / 1062.5 2852.5 / 2852.5 Output Total 500 / 500 325 / 325 Balance 1503.75 / 1503.75 562.5 / 562.5 2527.5 / 2527.5 General: Alert, Oriented x3, Cooperative HEENT: Atraumatic, PERRLA, EOMI, Normocephalic Neck: Supple, No JVD, Negative Carotid Bruits Lungs: Clear to auscultation, Normal air movement Cardiovascular: Regular rate, No murmurs Abdomen: Bowel Sounds Present, Soft, Non Tender Extremities: No edema, Capillary Refill Less than 3 Seconds Skin: No rashes, No breakdown Musculoskeletal: No Tenderness to Palpation of Joints or Extremities Neurological: Cranial nerves II-XII grossly intact Psych/Mental Status: Normal Affect, Appropriate Laboratory Results 04/23/19 06:15: WBC 10.0, RBC 2.26 L, Hgb 8.1 L, Hct 24.3 L, MCV 107.5 H D, MCH 35.8 H, MCHC 33.3, RDW Std Deviation 87.8 H, RDW Coeff of Reggie 22.5 H, Plt Count 286, MPV 10.3, Immature Gran % (Auto) 0.500, Neut % (Auto) 65.4, Lymph % (Auto) 13.6 L, [place] % (Auto) 17.9 H, Eos % (Auto) 2.2, Baso % (Auto) 0.4, Absolute Neuts (auto) 6.5, Absolute Lymphs (auto) 1.35, Nucleated RBC % 0.2, Differential Comment SCANNED, Anisocytosis 1+ 04/23/19 06:15: Sodium 145, Potassium 3.9, Chloride 111 H, Carbon Dioxide 30.0, Anion Gap 4 L, BUN 36 H, Creatinine 1.88 H, Estim Creat Clear Calc 32.85, Est GFR (MDRD) Af Amer 45 L, Est GFR (MDRD) Non-Af 37 L, BUN/Creatinine Ratio 19.1, Glucose 98, Calcium 7.6 L, Total Bilirubin 0.80, AST 51 H, ALT 15 L, Alkaline Phosphatase 116, Total Protein 6.8, Albumin 1.5 L, Globulin 5.3 H, Albumin/Globulin Ratio 0.3 L 04/23/19 06:15: PT 21.1 H, INR 1.8 Current Medications Cholecalcifer[facility] ([facility]itamin [facility]) [facility] Admin: 04/23/19 10:18 Dose: 1,000 unit Documented by: Ferrous Sulfate (Ferrous Sulfate) 325 mg PO BIDCM [facility] Last Admin: 04/23/19 10:17 Dose: 325 mg Documented by: Furosemide (Lasix) 40 mg PO BID@1000,1800 [facility] Last Admin: 04/23/19 10:17 Dose: 40 mg Documented by: Sodium Chloride () 1,000 mls @ 75 mls/hr IV .[id number] [facility] Last Infusion: 04/23/19 14:36 Dose: Infused Documented by: Sodium Chloride () 250 mls @ 15 mls/hr IV .[id number] PRN PRN Reason: Saline Flush Sodium Chloride () 250 mls @ 15 mls/hr IV .[id number] PRN PRN Reason: Additional IVPB Infusion Lactulose (Chronulac, Cephulac) 20 gm PO TID [facility] Last Admin: 04/23/19 13:39 Dose: Not Given Documented by: Lorazepam (Ativan) 2 mg PO Q2H PRN PRN; Protocol PRN Reason: CIWA score > 8 but <15 Lorazepam (Ativan) 2 mg PO UD PRN; Protocol PRN Reason: CIWA score >/=15. Lorazepam (Ativan) 2 mg IV Q2H PRN PRN; Protocol PRN Reason: CIWA score > 8 but <15 Lorazepam (Ativan) 2 mg IV UD PRN; Protocol PRN Reason: CIWA score >/=15. Magnesium Oxide (Mag-Ox 400) 400 mg PO DAILY@0800 [facility] Last Admin: 04/23/19 10:17 Dose: 400 mg Documented by: Melatonin (Melatonin) 3 mg PO QHS PRN PRN PRN Reason: INSOMNIA Last Admin: 04/22/19 23:27 Dose: 3 mg Documented by: Metoprolol Succinate (Toprol Xl (Beta Yaquelin)) 25 mg PO DAILY [facility] Last Admin: 04/23/19 10:17 Dose: 25 mg Documented by: Multivitamins/Minerals (Multivitamin With Minerals) [facility] Last Admin: 04/23/19 10:17 Dose: 1 tablet Documented by: Ondansetron HCl (Zofran) 8 mg PO Q8H PRN PRN PRN Reason: NAUSEA Oxycodone HCl (Oxyir) 5 mg PO Q6H PRN PRN PRN Reason: Pain Score 6-10/10 Last Admin: 04/23/19 13:41 Dose: 5 mg Documented by: Sodium Chloride () 10 - 40 ml IV UD PRN PRN Reason: SALINE FLUSH Thiamine HCl ([facility]itamin B1) [facility] Stop: 04/24/19 08:01 Last Admin: 04/23/19 10:17 Dose: 100 mg Documented by: Medical Necessity - Tobacco Use Smoking Status: Former smoker Tobacco Use: Non-smoker Assessment/Plan All Active Problems (Last Reviewed 03/30/19 @ 15:16 by Micky Mauro MD) Hepatic encephalopathy (Acute) History of alcohol consumption (Acute) Elevated INR (Acute) Elevated troponin (Acute) Hyperammonemia (Acute) Contracture, right foot (Acute) Non-ischemic cardiomyopathy (Resolved) Acute on chronic renal failure. Likely hemodynamic. Abdominal ultrasound without any hydronephrosis. Urine analysis is fairly benign. Blood pressure is acceptable. Creatinine is better today. Anemia. Severe. He had significant persistent erythropoietin as outpatient. Recently saw hematology here. Bone marrow biopsy was done on the third of this month. Reviewed report. Possible plasma cell dyscrasia. Edema. Resume oral Lasix 40 mg twice daily. Cirrhosis. Apparently he has been drinking more recently. Advised about alcohol cessation. dc today
--- NOTE | 2019-04-24 16:57 | CASEMGMT ---
ANTONY GARIBAY Discharge Follow-Up Phone Call. Chaya: 12 Strata: 4 Discharge Date: 04/23/19 Adm Dx: Hepatic Encephalopathy Call to pt to inquire about how he has been doing since being discharged from the hospital. Pt stated, I seem to be doing okay. Pt states he does have some questions about the medications he had been on prior to coming into the hospital and some changes that were made. He stated he does not wish to discuss these questions with ANTONY GARIBAY at this time, that he plans on addressing his questions with his PCP. He states he was able to pickling solution maker the new prescriptions. He denies having any other questions about the discharge instructions or follow-up appts. ANTONY GARIBAY thanked pt for choosing [facility] ANTONY GARIBAY
== END 2019-04-23 15:50 | disposition home or self-care (01) | DRG 433 ==
LOC: ED 15:27 → PCU 16:09
PROVIDERS: Physician Assistant; Admitting Provider Internal Medicine; Emergency Provider Emergency Medicine; Family Provider Family Medicine; PCP Family Medicine; Referring Provider Internal Medicine; Visit Provider Internal Medicine
DX: K70.40 Alcoholic hepatic failure without coma (principal); N17.9 Acute kidney failure, unspecified; I13.0 Hypertensive heart and chronic kidney disease with heart failure and stage 1 through stage 4 chronic kidney disease, or unspecified chronic kidney disease; I50.32 Chronic diastolic (congestive) heart failure; F10.20 Alcohol dependence, uncomplicated; K70.30 Alcoholic cirrhosis of liver without ascites; N18.3 Chronic kidney disease, stage 3 (moderate); D64.9 Anemia, unspecified; M24.574 Contracture, right foot; Z85.72 Personal history of non-Hodgkin lymphomas; Z87.891 Personal history of nicotine dependence; Z90.81 Acquired absence of spleen; E78.5 Hyperlipidemia, unspecified; I27.21 Secondary pulmonary arterial hypertension; Z86.718 Personal history of other venous thrombosis and embolism; I07.1 Rheumatic tricuspid insufficiency; R79.89 Other specified abnormal findings of blood chemistry; I45.10 Unspecified right bundle-branch block; M79.10 Myalgia, unspecified site; R79.1 Abnormal coagulation profile
CPT/HCPCS: 36415; 70450; 71045; 73630; 76705; 80048; 80053; 80076; 81001; 82140; 82550; 83540; 83550; 83605; 83735; 84100; 84484; 85025; 85610; 85652; 85730; 86140; 86850; 86900; 86901; 86920; 86922; 93005; 97162; 97166; 97802; 99285; J7030; J7040; P9040; A4216

== ENCOUNTER 2019-05-01 14:30 | Outpatient (RCR) | payer MEDICARE, OTHER, SELFPAY ==
[2015-10-31 10:00] VITALS: BMI 34.9
[2019-04-05 00:27] VITALS: BP 122/63; PULSE 93; RESP 16; TEMP 36.6
[2019-04-07 09:39] VITALS: BMI 33.4
[2019-04-10 10:35] VITALS: BP 110/60; PULSE 80; RESP 18; TEMP 37.1; BMI 33.4
--- NOTE | 2019-04-10 11:47 | PCM.WC.PN ---
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 Marshall is a 73-yo who has been seen here at the wound center for a nonhealing surgical wound of his lower back s/p surgical debridement for an abscess s/p lumbar spine surgery. His original surgery on his lower back was approximately 2015 and he has had multiple complications since that time. He underwent surgical debridement on 03/04/[address] Davila at [facility] in [place] and was discharged with a wound vac for healing by secondary intention with possible muscle flap closure in the future. He followed up with his surgeon on 04/18/17 for further evaluation and recommendations and they plan to close the wound with a muscle flap but he continues to develop infections. He is also being seen by Infectious Disease as needed. CT 02/2018 did not show any abscess. Progress of Wound: Cuong is here for follow-up of his nonhealing surgical wound of his lower back. His reports decrease in drainage, although drainage is still very heavy. He fell last week and lacerated his scalp and was seen in the ER and 4 kristy were placed to close the skin of his left parietal scalp. His also notes that the ulcer to his left lateral heel has opened again and is draining heavily. She was applying Guera to this but ran out. Denies pain or odor. He has been tolerating Aquacel and acetic acid dressings. Triamcinolone cream has helped with the irritation of the periwound area. He continues to have very heavy drainage from his wound. He has had 10 applications of Purapply to his lower back wound with mild improvement which were completed 03/21/2018. Cuong saw the surgeon at [facility] again on August 27, 2018 and he does not think a skin flap would be an option but talked about doing a skin graft from his thigh to the lower back. He has been having increased pain in his back and left leg presumably from nerve impingement. Denies increased drainage, fever or chills. - Physical Exam Vital Signs Temp Pulse Resp BP 98.7 F 80 18 110/60 04/10/19 10:35 04/10/19 10:35 04/10/19 10:35 04/10/19 10:35 General: Alert, Oriented x3, Cooperative, No apparent distress HEENT: Atraumatic, Normocephalic Oral: Moist Mucosa Extremities: Edema Skin: Ulcer/ Wound, - - laceration left parietal scalp intact, [address] Wound Measurements and Assessment WC - Nurse 1 - General Ulcer Measurement Start: 04/10/19 10:34 Freq: Status: Active Protocol: Activity Type Activity Date Activity User E-Sign Co-Sign Detail Recorded Client Recorded Date Recorded By Document 04/10/19 10:35 DV [id number] 04/10/19 10:48 DV 04/10/19 10:35 Wound Center Nurse 1 [Ulcer Assessment] #12 Lateral Left Heel -Combined with other wound No -Current Size (cm) - Length 1.7 -Current Size (cm) - Width 0.5 -Current Size (cm) - Depth 0.3 -Total Square Cm 0.85 -Photo Taken Yes -Epithelialization None Present -Tunneling No -Undermining/Tunneling No -Circular Undermining No -Classification - Thickness Full Thickness without Exposed Support Structure -Exudate Type Serosanguineous -Wound Margin Indistinct, Non -Visible -Granulation Amt None Present (0 %) -Granulation Quality N/A -Slough/Fibrin No -Necrosis Amt Medium (34-66%) -Necrotic Tissue Type Adherent Slough -Structure Exposed None/Limited to Skin Breakdown -Texture (Uma-wound Skin Appearance) Assessed, Scarring -Moisture (Uma-wound Skin Appearance Assessed, ) Maceration, Weeping -Color (Uma-wound Skin Appearance) Assessed,Palor -Temperature (Uma-wound Skin No Abnormality Appearance) (Pt Warm) -Tenderness on Palpation (Uma-wound No Skin Appearance) -Ulcer Cleansing Rinsed/ Irrigated with Saline -Foul Odor after Cleansing No -Anesthetic Used 4% Lidocaine Solution #9 Lower Lumbar- Midline -Combined with other wound No -Current Size (cm) - Length 12.0 -Current Size (cm) - Width 4.0 -Current Size (cm) - Depth 0.4 -Total Square Cm 48.00 -Photo Taken No -Epithelialization None Present -Tunneling No -Undermining/Tunneling No -Circular Undermining No -Classification - Thickness Full Thickness without Exposed Support Structure -Exudate Amt Medium -Exudate Type Serous -Wound Margin Thickened & Rolled Under -Granulation Amt Small (1-33%) -Granulation Quality Hyndman -Slough/Fibrin Yes -Necrosis Amt Large (67-100%) -Necrotic Tissue Type Adherent Slough -Structure Exposed None/Limited to Skin Breakdown -Texture (Uma-wound Skin Appearance) No Abnormality, Assessed -Moisture (Uma-wound Skin Appearance No Abnormality, ) Assessed -Color (Uma-wound Skin Appearance) No Abnormality, Assessed -Temperature (Uma-wound Skin No Abnormality Appearance) (Pt Warm) -Tenderness on Palpation (Uma-wound No Skin Appearance) -Foul Odor after Cleansing No -Anesthetic Used 4% Lidocaine Solution [Edema Assessment] -Lower Limb Edema Present No WC - Nurse 2 - General Ulcer CM Notes Start: 04/10/19 10:34 Freq: Status: Active Protocol: Activity Type Activity Date Activity User E-Sign Co-Sign Detail Recorded Client Recorded Date Recorded By Document 04/10/19 10:35 DV [id number] 04/10/19 10:48 DV 04/10/19 10:35 Pain Scale: 0-10 Numeric [Pain] -Is Patient Pain Free? Yes Wound Center Nurse 2 [Procedure/Treatment] #12 Lateral Left Heel -Time 10:50 -Correct Patient Yes -Correct Side, Site, Position Yes -Correct Procedure Yes -Procedure Performed Yes -Type of Procedure Debridement -Clinical Debridement Subcutaneous -Post Debridement Size (cm) - Length 1.7 -Post Debridement Size (cm) - Width 0.5 -Post Debridement Size (cm) - Depth 0.3 -Total Square Cm 0.85 -Wound/Ulcer Outcome Not Healed -Ulcer Cleansing Rinsed/ Irrigated with Saline -Foul Odor after Cleansing No -Bioengineered Tissue No -Bleeding Controlled with Pressure -Offloading No -Treatment Response Procedure Tolerated Well #9 Lower Lumbar- Midline -Time 10:48 -Correct Patient Yes -Correct Side, Site, Position Yes -Correct Procedure Yes -Procedure Performed Yes -Type of Procedure Debridement -Clinical Debridement Subcutaneous -Post Debridement Size (cm) - Length 12.5 -Post Debridement Size (cm) - Width 3.8 -Post Debridement Size (cm) - Depth 0.4 -Total Square Cm 47.50 -Wound/Ulcer Outcome Not Healed [See Physician Procedure note for Specifics] Psych/Mental Status: Normal Affect, Appropriate Debridement Note Post-Debridement Measurements/Treatment WC - Nurse 2 - General Ulcer CM Notes Start: 04/10/19 10:34 Freq: Status: Active Protocol: Activity Type Activity Date Activity User E-Sign Co-Sign Detail Recorded Client Recorded Date Recorded By Document 04/10/19 10:35 DV [id number] 04/10/19 10:48 DV 04/10/19 10:35 Pain Scale: 0-10 Numeric Is Patient Pain Free? Yes Wound Center Nurse 2 #12 Lateral Left Heel -Time 10:50 -Correct Patient Yes -Correct Side, Site, Position Yes -Correct Procedure Yes -Procedure Performed Yes -Type of Procedure Debridement -Clinical Debridement Subcutaneous -Post Debridement Size (cm) - Length 1.7 -Post Debridement Size (cm) - Width 0.5 -Post Debridement Size (cm) - Depth 0.3 -Total Square Cm 0.85 -Wound/Ulcer Outcome Not Healed -Ulcer Cleansing Rinsed/ Irrigated with Saline -Foul Odor after Cleansing No -Bioengineered Tissue No -Bleeding Controlled with Pressure -Offloading No -Treatment Response Procedure Tolerated Well #9 Lower Lumbar- Midline -Time 10:48 -Correct Patient Yes -Correct Side, Site, Position Yes -Correct Procedure Yes -Procedure Performed Yes -Type of Procedure Debridement -Clinical Debridement Subcutaneous -Post Debridement Size (cm) - Length 12.5 -Post Debridement Size (cm) - Width 3.8 -Post Debridement Size (cm) - Depth 0.4 -Total Square Cm 47.50 -Wound/Ulcer Outcome Not Healed Wound debrided: left lateral heel Laterality: Left Type of Debridement: Excisional debridement Anesthesia Used: 4% Lidocaine Solution, 5% Lidocaine Gel Depth: Down to and including healthy tissue, in the subcutaneous layer Percentage of wound debrided: 100 Instrument Used: 5mm curette Tissue Removed: yellow slough, devitalized tissue Severity: Fat Layer Exposed Amount of bleeding with debridement: Mild Bleeding Controlled with: Compression and gauze Patient tolerated procedure well - Additional Wound Wound debrided: lower lumbar midline Laterality: Not Applicable Type of Debridement: Excisional debridement Anesthesia Used: 4% Lidocaine Solution, 5% Lidocaine Gel Depth: Down to and including healthy tissue, in the subcutaneous layer Percentage of wound debrided: 100 Instrument Used: 7mm curette Tissue Removed: yellwo slough, devitalized tissue Severity: Fat Layer Exposed Amount of bleeding with debridement: Mild Bleeding Controlled with: Compression and gauze Patient tolerated procedure: Patient tolerated procedure well Assessment/Plan Active Problems (Last Reviewed 03/30/19 @ 15:16 by Micky Mauro MD) 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 malnutrition. other multiple comorbidities. edema bilateral lower extremities. venous insufficiency. immunocompromised status. Plan: Evaluated Cuong's wound and debrided his lumbar wound. There has been mild improvement in his wound. Will continue to alternate dressings with Aquacel and acetic acid to the base of his wound. Will cover with KerraMaxCare and wound drape with changes once daily for heavy amount of drainage of his lumbar wound. His left heel will be treated with Aquacel extra for heavy drainage with changes daily. 4 kristy removed easily with staple remover from his left scalp. Laceration clean dry and intact. Continue increased protein intake. F/U in [address] Wick.
[2019-04-17 10:05] VITALS: BP 109/66; PULSE 91; RESP 20; TEMP 36.4; BMI 33.4
--- NOTE | 2019-04-17 13:18 | PCM.WC.PN ---
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 Marshall is a 73-yo who has been seen here at the wound center for a nonhealing surgical wound of his lower back s/p surgical debridement for an abscess s/p lumbar spine surgery. His original surgery on his lower back was approximately 2016 and he has had multiple complications since that time. He underwent surgical debridement on 03/04/[address] Davila at [facility] in [place] and was discharged with a wound vac for healing by secondary intention with possible muscle flap closure in the future. He followed up with his surgeon on 04/18/17 for further evaluation and recommendations and they plan to close the wound with a muscle flap but he continues to develop infections. He is also being seen by Infectious Disease as needed. CT 02/2018 did not show any abscess. Progress of Wound: Cuong is here for follow-up of his nonhealing surgical wound of his lower back. His reports same amount of drainage, drainage is still very heavy. His ulcer to his left lateral heel is draining a little less, but still has moderate drainage. He tolerated Aquacel dressing. Denies pain or odor. He has been tolerating Aquacel alternating with acetic acid dressings to his back. Triamcinolone cream has helped with the irritation of the periwound area. He continues to have very heavy drainage from his wound. He has had 10 applications of Purapply to his lower back wound with mild improvement which were completed 03/21/2018. Cuong saw the surgeon at [facility] again on August 27, 2018 and he does not think a skin flap would be an option but talked about doing a skin graft from his thigh to the lower back. He has been having increased pain in his back and left leg presumably from nerve impingement. Denies increased drainage, fever or chills. - Physical Exam Vital Signs Temp Pulse Resp BP 97.6 F L 91 20 H 109/66 04/17/19 10:05 04/17/19 10:05 04/17/19 10:05 04/17/19 10:05 General: Alert, Oriented x3, Cooperative, No apparent distress HEENT: Atraumatic, Normocephalic Oral: Moist Mucosa Extremities: Edema Skin: Ulcer/ Wound Wound Measurements and Assessment WC - Nurse 1 - General Ulcer Measurement Start: 04/10/19 10:34 Freq: Status: Active Protocol: Activity Type Activity Date Activity User E-Sign Co-Sign Detail Recorded Client Recorded Date Recorded By Document 04/17/19 10:05 IVANA [id number] 04/17/19 10:17 DL 04/17/19 10:05 Wound Center Nurse 1 [Ulcer Assessment] #12 Lateral Left Heel -Current Size (cm) - Length 1.1 -Current Size (cm) - Width 0.4 -Current Size (cm) - Depth 0.3 -Total Square Cm 0.44 -Photo Taken No -Exudate Amt Small -Exudate Type Serosanguineous -Wound Margin Distinct, Outline Attached -Granulation Amt Small (1-33%) -Granulation Quality L[place] -Necrosis Amt Small (1-33%) -Necrotic Tissue Type Adherent Slough -Structure Exposed N/A -Texture (Uma-wound Skin Appearance) Scarring -Moisture (Uma-wound Skin Appearance Dry/Scaly ) -Color (Uma-wound Skin Appearance) No Abnormality -Temperature (Uma-wound Skin No Abnormality Appearance) (Pt Warm) -Tenderness on Palpation (Uma-wound No Skin Appearance) -Ulcer Cleansing Wound Cleanser -Foul Odor after Cleansing No -Anesthetic Used 4% Lidocaine Solution #9 Lower Lumbar- Midline -Current Size (cm) - Length 13.6 -Current Size (cm) - Width 4.1 -Current Size (cm) - Depth 0.2 -Total Square Cm 55.76 -Photo Taken No -Exudate Amt Medium -Exudate Type Serosanguineous -Wound Margin Thickened & Rolled Under -Granulation Amt Medium (34-66%) -Granulation Quality [place],Red -Necrosis Amt Medium (34-66%) -Structure Exposed N/A -Texture (Uma-wound Skin Appearance) Scarring -Moisture (Uma-wound Skin Appearance No Abnormality ) -Color (Uma-wound Skin Appearance) No Abnormality -Temperature (Uma-wound Skin No Abnormality Appearance) (Pt Warm) -Tenderness on Palpation (Uma-wound No Skin Appearance) -Ulcer Cleansing Wound Cleanser -Foul Odor after Cleansing No -Anesthetic Used 4% Lidocaine Solution WC - Nurse 2 - General Ulcer CM Notes Start: 04/10/19 10:34 Freq: Status: Active Protocol: Activity Type Activity Date Activity User E-Sign Co-Sign Detail Recorded Client Recorded Date Recorded By Document 04/17/19 10:32 MW [id number] 04/17/19 10:55 MW 04/17/19 10:32 Wound Center Nurse 2 [Procedure/Treatment] #12 Lateral Left Heel -Time 10:33 -Correct Patient Yes -Correct Side, Site, Position Yes -Correct Procedure Yes -Procedure Performed Yes -Type of Procedure Debridement -Clinical Debridement Subcutaneous -Post Debridement Size (cm) - Length 1.5 -Post Debridement Size (cm) - Width 0.5 -Post Debridement Size (cm) - Depth 0.3 -Total Square Cm 0.75 -Wound/Ulcer Outcome Not Healed -Ulcer Cleansing Rinsed/ Irrigated with Saline -Foul Odor after Cleansing No -Bioengineered Tissue No -Bleeding Controlled with Pressure -Offloading No -Treatment Response Procedure Tolerated Well #9 Lower Lumbar- Midline -Time 10:33 -Correct Patient Yes -Correct Side, Site, Position Yes -Correct Procedure Yes -Procedure Performed Yes -Type of Procedure Debridement -Clinical Debridement Subcutaneous -Post Debridement Size (cm) - Length 12.8 -Post Debridement Size (cm) - Width 3.8 -Post Debridement Size (cm) - Depth 0.4 -Total Square Cm 48.64 -Wound/Ulcer Outcome Not Healed -Ulcer Cleansing Rinsed/ Irrigated with Saline -Foul Odor after Cleansing No -Bioengineered Tissue No -Bleeding Controlled with Pressure -Offloading No -Treatment Response Procedure Tolerated Well [See Physician Procedure note for Specifics] Pain Scale: 0-10 Numeric [Pain] -Is Patient Pain Free? Yes Psych/Mental Status: Normal Affect, Appropriate Debridement Note Post-Debridement Measurements/Treatment WC - Nurse 2 - General Ulcer CM Notes Start: 04/10/19 10:34 Freq: Status: Active Protocol: Activity Type Activity Date Activity User E-Sign Co-Sign Detail Recorded Client Recorded Date Recorded By Document 04/10/19 10:35 DV [id number] 04/10/19 10:48 DV Document 04/17/19 10:32 MW [id number] 04/17/19 10:55 MW 04/10/19 04/17/19 10:35 10:32 Pain Scale: 0-10 Numeric Is Patient Pain Free? Yes Yes Wound Center Nurse 2 #12 Lateral Left Heel -Time 10:50 10:33 -Correct Patient Yes Yes -Correct Side, Site, Position Yes Yes -Correct Procedure Yes Yes -Procedure Performed Yes Yes -Type of Procedure Debridement Debridement -Clinical Debridement Subcutaneous Subcutaneous -Post Debridement Size (cm) - Length 1.7 1.5 -Post Debridement Size (cm) - Width 0.5 0.5 -Post Debridement Size (cm) - Depth 0.3 0.3 -Total Square Cm 0.85 0.75 -Wound/Ulcer Outcome Not Healed Not Healed -Ulcer Cleansing Rinsed/ Rinsed/ Irrigated with Irrigated with Saline Saline -Foul Odor after Cleansing No No -Bioengineered Tissue No No -Bleeding Controlled with Pressure Pressure -Offloading No No -Treatment Response Procedure Procedure Tolerated Well Tolerated Well #9 Lower Lumbar- Midline -Time 10:48 10:33 -Correct Patient Yes Yes -Correct Side, Site, Position Yes Yes -Correct Procedure Yes Yes -Procedure Performed Yes Yes -Type of Procedure Debridement Debridement -Clinical Debridement Subcutaneous Subcutaneous -Post Debridement Size (cm) - Length 12.5 12.8 -Post Debridement Size (cm) - Width 3.8 3.8 -Post Debridement Size (cm) - Depth 0.4 0.4 -Total Square Cm 47.50 48.64 -Wound/Ulcer Outcome Not Healed Not Healed -Ulcer Cleansing Rinsed/ Irrigated with Saline -Foul Odor after Cleansing No -Bioengineered Tissue No -Bleeding Controlled with Pressure -Offloading No -Treatment Response Procedure Tolerated Well Wound debrided: left lateral heel Laterality: Left Type of Debridement: Excisional debridement Anesthesia Used: 4% Lidocaine Solution, 5% Lidocaine Gel Depth: Down to and including healthy tissue, in the subcutaneous layer Percentage of wound debrided: 100 Instrument Used: 3mm curette Tissue Removed: yellow slough, devitalized tissue Severity: Fat Layer Exposed Amount of bleeding with debridement: Moderate Bleeding Controlled with: Compression and gauze, Gel Foam Patient tolerated procedure well - Additional Wound Wound debrided: lower lumbar midline Laterality: Not Applicable Type of Debridement: Excisional debridement Anesthesia Used: 4% Lidocaine Solution Depth: Down to and including healthy tissue, in the subcutaneous layer Percentage of wound debrided: 100 Instrument Used: 7mm curette Tissue Removed: yellow slough, devitalized tissue Severity: Fat Layer Exposed Amount of bleeding with debridement: Mild Bleeding Controlled with: Compression and gauze, Gel Foam Patient tolerated procedure: Patient tolerated procedure well Assessment/Plan Active Problems (Last Reviewed 03/30/19 @ 15:16 by Micky Mauro MD) 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 malnutrition. other multiple comorbidities. edema bilateral lower extremities. venous insufficiency. immunocompromised status. Plan: Evaluated Cuong's wounds and debrided his wounds. There has been mild improvement in his wounds. Will continue to alternate dressings with Aquacel and acetic acid to his back wound. Will cover with KerraMaxCare and wound drape with changes once daily for heavy amount of drainage of his lumbar wound. His left heel will be treated with Aquacel extra for heavy drainage with changes daily. Continue increased protein intake. F/U in [address] Wick.
[2019-05-01 14:42] VITALS: BP 135/54; PULSE 82; RESP 16; TEMP 37.3; BMI 33.4
--- NOTE | 2019-05-01 18:02 | PN.PCM_ITS ---
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 Marshall is a 73-yo who has been seen here at the wound center for a nonhealing surgical wound of his lower back s/p surgical debridement for an abscess s/p lumbar spine surgery. His original surgery on his lower back was approximately 2016 and he has had multiple complications since that time. He underwent surgical debridement on 03/04/[address] Davila at [facility] in [place] and was discharged with a wound vac for healing by secondary intention with possible muscle flap closure in the future. He followed up with his surgeon on 04/18/17 for further evaluation and recommendations and they plan to close the wound with a muscle flap but he continues to develop infections. He is also being seen by Infectious Disease as needed. CT 02/2018 did not show any abscess. Progress of Wound: Cuong is here for follow-up of his nonhealing surgical wound of his lower back. His reports about the same amount of drainage, drainage is still very heavy. Since his last visit he was hospitalized for weakness and diagnosed with hepatic encephalopathy. He also fell and has a skin tear to his left elbow which they have been treating with adaptic. His ulcer to his left lateral heel is draining a little less, but still has moderate drainage. He tolerated Aquacel dressing. Denies pain or odor. He has been tolerating Aquacel alternating with acetic acid dressings to his back. Triamcinolone cream has helped with the irritation of the periwound area. He continues to have very heavy drainage from his wound. He has had 10 applications of Purapply to his lower back wound with mild improvement which were completed 03/21/2018. Cuong saw the surgeon at [facility] again on August 27, 2018 and he does not think a skin flap would be an option but talked about doing a skin graft from his thigh to the lower back. He has been having increased pain in his back and left leg presumably from nerve impingement. Denies increased drainage, fever or chills. - Physical Exam Vital Signs Temp Pulse Resp BP 99.1 F 82 16 135/54 H 05/01/19 14:42 05/01/19 14:42 05/01/19 14:42 05/01/19 14:42 General: Alert, Oriented x3, Cooperative, No apparent distress HEENT: Atraumatic, Normocephalic Oral: Moist Mucosa Abdomen: Obese Extremities: Edema Skin: Ulcer/ Wound Wound Measurements and Assessment WC - Nurse 1 - General Ulcer Measurement Start: 04/10/19 10:34 Freq: Status: Active Protocol: Activity Type Activity Date Activity User E-Sign Co-Sign Detail Recorded Client Recorded Date Recorded By Document 05/01/19 14:42 [facility] [id number] 05/01/19 14:52 [facility] 05/01/19 14:42 Wound Center Nurse 1 [Ulcer Assessment] #13 L lateral elbow -Combined with other wound No -Current Size (cm) - Length 3.9 -Current Size (cm) - Width 3 -Current Size (cm) - Depth 0.1 -Total Square Cm 11.7 -Photo Taken Yes -Tunneling No -Undermining/Tunneling No -Circular Undermining No -Exudate Amt Small -Exudate Type Serosanguineous -Wound Margin Thickened & Rolled Under -Granulation Amt Large (67-100%) -Granulation Quality [place] -Slough/Fibrin Yes -Necrosis Amt Small (1-33%) -Necrotic Tissue Type Adherent Slough -Structure Exposed N/A -Texture (Uma-wound Skin Appearance) Assessed, Friable -Moisture (Uma-wound Skin Appearance Assessed ) -Color (Uma-wound Skin Appearance) Assessed -Temperature (Uma-wound Skin No Abnormality Appearance) (Pt Warm) -Tenderness on Palpation (Uma-wound No Skin Appearance) -Ulcer Cleansing Wound Cleanser -Foul Odor after Cleansing No -Anesthetic Used 5% Lidocaine Gel #12 Lateral Left Heel -Combined with other wound No -Current Size (cm) - Length 0.3 -Current Size (cm) - Width 1 -Current Size (cm) - Depth 0.2 -Total Square Cm 0.3 -Tunneling No -Undermining/Tunneling No -Circular Undermining No -Exudate Amt Small -Exudate Type Serosanguineous -Wound Margin Thickened -Granulation Amt Medium (34-66%) -Granulation Quality [place] -Slough/Fibrin Yes -Necrosis Amt Small (1-33%) -Necrotic Tissue Type Adherent Slough -Texture (Uma-wound Skin Appearance) Assessed,Callus -Moisture (Uma-wound Skin Appearance Assessed ) -Color (Uma-wound Skin Appearance) Assessed -Temperature (Uma-wound Skin No Abnormality Appearance) (Pt Warm) -Tenderness on Palpation (Uma-wound No Skin Appearance) -Ulcer Cleansing Rinsed/ Irrigated with Saline -Foul Odor after Cleansing No -Anesthetic Used 5% Lidocaine Gel #9 Lower Lumbar- Midline -Combined with other wound No -Current Size (cm) - Length 13.5 -Current Size (cm) - Width 4 -Current Size (cm) - Depth 0.1 -Total Square Cm 54.0 -Date of Last Picture (Recall this 05/01/19 field) -Photo Taken Yes -Epithelialization None Present -Tunneling No -Undermining/Tunneling No -Circular Undermining No -Exudate Amt Medium -Exudate Type Serosanguineous -Wound Margin Thickened & Rolled Under -Granulation Amt Small (1-33%) -Granulation Quality Pale,[place] -Slough/Fibrin Yes -Necrosis Amt Medium (34-66%) -Necrotic Tissue Type Adherent Slough -Texture (Uma-wound Skin Appearance) Assessed, Scarring -Moisture (Uma-wound Skin Appearance Assessed,Dry/ ) Scaly -Color (Uma-wound Skin Appearance) Assessed -Temperature (Uma-wound Skin No Abnormality Appearance) (Pt Warm) -Tenderness on Palpation (Uma-wound Yes Skin Appearance) -Ulcer Cleansing soapy water -Foul Odor after Cleansing No -Anesthetic Used 4% Lidocaine Solution WC - Nurse 2 - General Ulcer CM Notes Start: 04/10/19 10:34 Freq: Status: Active Protocol: Activity Type Activity Date Activity User E-Sign Co-Sign Detail Recorded Client Recorded Date Recorded By Document 05/01/19 15:07 MW [id number] 05/01/19 15:25 MW 05/01/19 15:07 Wound Center Nurse 2 [Procedure/Treatment] #13 L lateral elbow -Time 15:09 -Correct Patient Yes -Correct Side, Site, Position Yes -Correct Procedure Yes -Procedure Performed Yes -Type of Procedure Debridement -Clinical Debridement Subcutaneous -Post Debridement Size (cm) - Length 3.7 -Post Debridement Size (cm) - Width 2.2 -Post Debridement Size (cm) - Depth 0.1 -Total Square Cm 8.14 -Wound/Ulcer Outcome Not Healed -Ulcer Cleansing Rinsed/ Irrigated with Saline -Foul Odor after Cleansing No -Bioengineered Tissue No -Bleeding Controlled with Pressure -Offloading No -Treatment Response Procedure Tolerated Well #12 Lateral Left Heel -Time 15:09 -Correct Patient Yes -Correct Side, Site, Position Yes -Correct Procedure Yes -Procedure Performed Yes -Type of Procedure Debridement -Clinical Debridement Subcutaneous -Post Debridement Size (cm) - Length 1.0 -Post Debridement Size (cm) - Width 0.4 -Post Debridement Size (cm) - Depth 0.2 -Total Square Cm 0.40 -Wound/Ulcer Outcome Not Healed -Ulcer Cleansing Rinsed/ Irrigated with Saline -Foul Odor after Cleansing No -Bioengineered Tissue No -Bleeding Controlled with Pressure -Offloading No -Treatment Response Procedure Tolerated Well #9 Lower Lumbar- Midline -Time 15:08 -Correct Patient Yes -Correct Side, Site, Position Yes -Correct Procedure Yes -Procedure Performed Yes -Type of Procedure Debridement -Clinical Debridement Subcutaneous -Post Debridement Size (cm) - Length 13.0 -Post Debridement Size (cm) - Width 3.8 -Post Debridement Size (cm) - Depth 0.4 -Total Square Cm 49.40 -Wound/Ulcer Outcome Not Healed -Ulcer Cleansing Rinsed/ Irrigated with Saline -Foul Odor after Cleansing No -Bioengineered Tissue No -Bleeding Controlled with Pressure -Offloading No -Treatment Response Procedure Tolerated Well [See Physician Procedure note for Specifics] Pain Scale: 0-10 Numeric [Pain] -Is Patient Pain Free? Yes Psych/Mental Status: Normal Affect, Appropriate Debridement Note Post-Debridement Measurements/Treatment WC - Nurse 2 - General Ulcer CM Notes Start: 04/10/19 10:34 Freq: Status: Active Protocol: Activity Type Activity Date Activity User E-Sign Co-Sign Detail Recorded Client Recorded Date Recorded By Document 04/10/19 10:35 DV [id number] 04/10/19 10:48 DV Document 04/17/19 10:32 MW [id number] 04/17/19 10:55 MW Document 05/01/19 15:07 MW [id number] 05/01/19 15:25 MW 04/10/19 04/17/19 05/01/19 10:35 10:32 15:07 Pain Scale: 0-10 Numeric Is Patient Pain Free? Yes Yes Yes Wound Center Nurse 2 #13 L lateral elbow -Time 15:09 -Correct Patient Yes -Correct Side, Site, Position Yes -Correct Procedure Yes -Procedure Performed Yes -Type of Procedure Debridement -Clinical Debridement Subcutaneous -Post Debridement Size (cm) - Length 3.7 -Post Debridement Size (cm) - Width 2.2 -Post Debridement Size (cm) - Depth 0.1 -Total Square Cm 8.14 -Wound/Ulcer Outcome Not Healed -Ulcer Cleansing Rinsed/ Irrigated with Saline -Foul Odor after Cleansing No -Bioengineered Tissue No -Bleeding Controlled with Pressure -Offloading No -Treatment Response Procedure Tolerated Well #12 Lateral Left Heel -Time 10:50 10:33 15:09 -Correct Patient Yes Yes Yes -Correct Side, Site, Position Yes Yes Yes -Correct Procedure Yes Yes Yes -Procedure Performed Yes Yes Yes -Type of Procedure Debridement Debridement Debridement -Clinical Debridement Subcutaneous Subcutaneous Subcutaneous -Post Debridement Size (cm) - Length 1.7 1.5 1.0 -Post Debridement Size (cm) - Width 0.5 0.5 0.4 -Post Debridement Size (cm) - Depth 0.3 0.3 0.2 -Total Square Cm 0.85 0.75 0.40 -Wound/Ulcer Outcome Not Healed Not Healed Not Healed -Ulcer Cleansing Rinsed/ Rinsed/ Rinsed/ Irrigated with Irrigated with Irrigated with Saline Saline Saline -Foul Odor after Cleansing No No No -Bioengineered Tissue No No No -Bleeding Controlled with Pressure Pressure Pressure -Offloading No No No -Treatment Response Procedure Procedure Procedure Tolerated Well Tolerated Well Tolerated Well #9 Lower Lumbar- Midline -Time 10:48 10:33 15:08 -Correct Patient Yes Yes Yes -Correct Side, Site, Position Yes Yes Yes -Correct Procedure Yes Yes Yes -Procedure Performed Yes Yes Yes -Type of Procedure Debridement Debridement Debridement -Clinical Debridement Subcutaneous Subcutaneous Subcutaneous -Post Debridement Size (cm) - Length 12.5 12.8 13.0 -Post Debridement Size (cm) - Width 3.8 3.8 3.8 -Post Debridement Size (cm) - Depth 0.4 0.4 0.4 -Total Square Cm 47.50 48.64 49.40 -Wound/Ulcer Outcome Not Healed Not Healed Not Healed -Ulcer Cleansing Rinsed/ Rinsed/ Irrigated with Irrigated with Saline Saline -Foul Odor after Cleansing No No -Bioengineered Tissue No No -Bleeding Controlled with Pressure Pressure -Offloading No No -Treatment Response Procedure Procedure Tolerated Well Tolerated Well Wound debrided: left lateral elbow Laterality: Left Type of Debridement: Excisional debridement Anesthesia Used: 4% Lidocaine Solution, 5% Lidocaine Gel Depth: Down to and including healthy tissue, in the subcutaneous layer Percentage of wound debrided: 100 Instrument Used: 5mm curette Tissue Removed: yellow slough, devitalized tissue Severity: Fat Layer Exposed Amount of bleeding with debridement: Mild Bleeding Controlled with: Compression and gauze Patient tolerated procedure well - Additional Wound Wound debrided: left lateral heel Laterality: Left Type of Debridement: Excisional debridement Anesthesia Used: 4% Lidocaine Solution, 5% Lidocaine Gel Depth: Down to and including healthy tissue, in the subcutaneous layer Percentage of wound debrided: 100 Instrument Used: 3mm curette Tissue Removed: yellow slough, devitalized tissue Severity: Fat Layer Exposed Amount of bleeding with debridement: Mild Bleeding Controlled with: Compression and gauze Patient tolerated procedure: Patient tolerated procedure well - Additional Wound Wound debrided: lower lumbar midline Laterality: Not Applicable Type of Debridement: Excisional debridement Anesthesia Used: 4% Lidocaine Solution, 5% Lidocaine Gel Depth: Down to and including healthy tissue, in the subcutaneous layer Percentage of wound debrided: 100 Instrument Used: 7mm curette Tissue Removed: yellow slough, devitalized tissue Severity: Fat Layer Exposed Amount of bleeding with debridement: Mild Bleeding Controlled with: Compression and gauze Patient tolerated procedure: Patient tolerated procedure well Assessment/Plan Assessment: 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 malnutrition. other multiple comorbidities. edema bilateral lower extremities. venous insufficiency. immunocompromised status. Plan: Evaluated and debrided his wounds. There has been mild improvement in his wounds. Will continue to alternate dressings with Aquacel and acetic acid to his back wound. Will cover with KerraMaxCare and wound drape with changes once daily for heavy amount of drainage of his lumbar wound. His left heel will be treated with Aquacel extra for heavy drainage with changes daily. His left elbow will continue to be dressed with adaptic and gauze changed daily. Continue increased protein intake. F/U in [address] Wick.
== END 2019-05-05 23:59 ==
LOC: WC 14:30
PROVIDERS: Family Provider Family Medicine; PCP Family Medicine; Referring Provider Family Medicine; Visit Provider Family Medicine
DX: T81.89XA Other complications of procedures, not elsewhere classified, initial encounter (principal); Y83.8 Other surgical procedures as the cause of abnormal reaction of the patient, or of later complication, without mention of misadventure at the time of the procedure; S01.01XA Laceration without foreign body of scalp, initial encounter; W19.XXXA Unspecified fall, initial encounter; I83.028 Varicose veins of left lower extremity with ulcer other part of lower leg; L97.822 Non-pressure chronic ulcer of other part of left lower leg with fat layer exposed
CPT/HCPCS: 11042; 11045; 99213; G0463

== ENCOUNTER → 2019-05-12 10:17 | Outpatient (CLI) | payer MEDICARE, OTHER, SELFPAY ==
[2015-10-31 10:00] VITALS: BMI 34.9
[2019-05-08 11:28] VITALS: BMI 31.8
[2019-05-12 10:46] LABS: Absolute Lymphocyte Count 1.66 X10^3/uL (0.83-4.51); Absolute Neutrophil Count 4.1 X10^3/uL (2.0-7.7); Basophil# 0.06 X10^3/uL; Basophil% 0.8 % (0-1); Eosinophil# 0.45 X10^3/uL; Eosinophils% 6.1 % (0-5); Hematocrit 27.7 % (40-54); Hemoglobin 8.9 g/dL (13.0-16.5); Lymphocyte # 1.66 X10^3/ul (4.0); Lymphocyte % 22.6 % (19-41); Mean Corp Hgb Conc 32.1 g/dL (32-36); Mean Corpuscular Volume 105.7 fL (80-94); Mean Platelet Vol. 9.8 fl (6.2-12.0); Monocyte# 1.08 X10^3/uL; Monocyte% 14.7 % (0-10); NRBC Flagged by Analyzer 0 % (0-5); Neutrophil # 4.07 X10^3/uL (2.7-7.7); Neutrophil % 55.7 % (47-70); POSITIVE MORPHOLOGY YES; Platelet Count 342 K/mm3 (150-450); RBC Distribution Width CV 16.9 % (11.6-14.6); RBC Distribution Width SD 65.6 fl (35.1-43.9); Red Blood Count 2.62 M/mm3 (4.6-6.2); White Blood Count 7.3 K/mm3 (4.4-11.0)
[2019-05-12 10:51] LABS: Differential Indicated SCAN CRITERIA MET
[2019-05-12 10:56] LABS: International Normalized Ratio 1.3
[2019-05-12 11:17] LABS: ALB/GLOB Ratio 0.3 RATIO (0.9-2.4); AST(SGOT) 36 U/L (15-37); Alanine Aminotransfer ALT/SGPT 15 U/L (16-61); Albumin, Serum 1.6 g/dL (3.2-5.0); Alkaline Phosphatase 115 U/L (45-117); Anion Gap 4 (5-15); BUN 23 mg/dL (7-18); BUN/Creat Ratio 15.5 RATIO (10-20); Calcium,Total 8.2 mg/dL (8.5-10.1); Chloride 105 mmol/L (98-107); Creatinine, Serum 1.48 mg/dL (0.70-1.30); EST Glomerular Filtration Rate 49 mL/min (>60); Est Glom Filt Rate - Afr Amer 60 mL/min (>60); Globulin 6.2 g/dL (2.2-4.2); Glucose 106 mg/dL (74-106); Potassium 3.7 mmol/L (3.5-5.1); Protein, Total 7.8 g/dL (6.4-8.2); Sodium Level 140 mmol/L (136-145)
[2019-05-12 11:24] LABS: Anisocytosis 1+; Hypochromasia 2+; Macrocytosis 1+; Platelet Estimate ADEQUATE (ADEQ); Target Cells 1+
== END ==
PROVIDERS: Family Provider Family Medicine; PCP Family Medicine; Referring Provider Family Medicine; Visit Provider Family Medicine
DX: D64.9 Anemia, unspecified (principal); K72.90 Hepatic failure, unspecified without coma; K74.60 Unspecified cirrhosis of liver; Z51.81 Encounter for therapeutic drug level monitoring
CPT/HCPCS: 36415; 80053; 82140; 85025; 85610

== ENCOUNTER 2019-06-05 11:30 | Outpatient (RCR) | payer MEDICARE, OTHER, SELFPAY ==
[2015-10-31 10:00] VITALS: BMI 34.9
[2019-05-06 00:24] VITALS: BP 135/54; PULSE 82; RESP 16; TEMP 37.3; BMI 31.8
[2019-05-08 11:28] VITALS: BMI 31.8
--- NOTE | 2019-05-08 14:03 | PCM.WC.PN ---
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 Marshall is a 73-yo who has been seen here at the wound center for a nonhealing surgical wound of his lower back s/p surgical debridement for an abscess s/p lumbar spine surgery. His original surgery on his lower back was approximately 2016 and he has had multiple complications since that time. He underwent surgical debridement on 03/04/[address] Davila at [facility] in [place] and was discharged with a wound vac for healing by secondary intention with possible muscle flap closure in the future. He followed up with his surgeon on 04/18/17 for further evaluation and recommendations and they plan to close the wound with a muscle flap but he continues to develop infections. He is also being seen by Infectious Disease as needed. CT 02/2018 did not show any abscess. Progress of Wound: Cuong is here for follow-up of his nonhealing surgical wound of his lower back. His reports same amount of drainage, drainage is still very heavy. His left elbow is healed. His ulcer to his left lateral heel is draining a little less, but still has moderate drainage. He is tolerating Aquacel dressing. Denies pain or odor. He has been tolerating Aquacel alternating with acetic acid dressings to his back. Triamcinolone cream has helped with the irritation of the periwound area. He continues to have very heavy drainage from his wound. He has had 10 applications of Purapply to his lower back wound with mild improvement which were completed 03/21/2018. Cuong saw the surgeon at [facility] again on August 27, 2018 and he does not think a skin flap would be an option but talked about doing a skin graft from his thigh to the lower back. He has been having increased pain in his back and left leg presumably from nerve impingement. Denies increased drainage, fever or chills. - Physical Exam Vital Signs Temp Pulse Resp BP 99.1 F 82 16 135/54 H 05/06/19 00:24 05/06/19 00:24 05/06/19 00:24 05/06/19 00:24 General: Alert, Oriented x3, Cooperative, No apparent distress HEENT: Atraumatic, Normocephalic Oral: Moist Mucosa Extremities: Edema Skin: Ulcer/ Wound Wound Measurements and Assessment WC - Nurse 1 - General Ulcer Measurement Start: 05/08/19 11:28 Freq: Status: Active Protocol: Activity Type Activity Date Activity User E-Sign Co-Sign Detail Recorded Client Recorded Date Recorded By Document 05/08/19 11:28 RENITA [id number] 05/08/19 11:46 RENITA 05/08/19 11:28 Wound Center Nurse 1 [Ulcer Assessment] #13 L lateral elbow -Combined with other wound No -Current Size (cm) - Length 0 -Current Size (cm) - Width 0 -Current Size (cm) - Depth 0 -Total Square Cm 0 -Photo Taken Yes -Epithelialization Large 67-100% -Tunneling No -Undermining/Tunneling No -Circular Undermining No -Exudate Amt Small -Exudate Type Serosanguineous -Wound Margin Flat & Intact -Granulation Amt Large (67-100%) #12 Lateral Left Heel -Combined with other wound No -Current Size (cm) - Length 0.8 -Current Size (cm) - Width 0.3 -Current Size (cm) - Depth 0.1 -Total Square Cm 0.24 -Photo Taken No -Epithelialization Small 1-33% -Tunneling No -Undermining/Tunneling No -Circular Undermining No -Exudate Amt Small -Exudate Type Serosanguineous -Wound Margin Flat & Intact -Granulation Amt Medium (34-66%) -Granulation Quality [place] -Slough/Fibrin Yes -Necrosis Amt Medium (34-66%) -Necrotic Tissue Type Adherent Slough -Structure Exposed N/A -Texture (Uma-wound Skin Appearance) Assessed -Moisture (Uma-wound Skin Appearance Assessed,Dry/ ) Scaly -Color (Uma-wound Skin Appearance) Assessed -Temperature (Uma-wound Skin No Abnormality Appearance) (Pt Warm) -Tenderness on Palpation (Uma-wound Yes Skin Appearance) -Ulcer Cleansing Rinsed/ Irrigated with Saline -Foul Odor after Cleansing No -Anesthetic Used 4% Lidocaine Solution #9 Lower Lumbar- Midline -Combined with other wound No -Current Size (cm) - Length 14 -Current Size (cm) - Width 4.3 -Current Size (cm) - Depth 0.6 -Total Square Cm 60.2 -Photo Taken No -Epithelialization None Present -Tunneling No -Undermining/Tunneling No -Circular Undermining No -Exudate Amt Large -Exudate Type Serosanguineous -Wound Margin Flat & Intact -Granulation Amt Medium (34-66%) -Granulation Quality Red -Slough/Fibrin Yes -Necrosis Amt Medium (34-66%) -Necrotic Tissue Type Adherent Slough -Structure Exposed Bone -Texture (Uma-wound Skin Appearance) Assessed -Moisture (Uma-wound Skin Appearance Assessed ) -Color (Uma-wound Skin Appearance) Assessed -Temperature (Uma-wound Skin No Abnormality Appearance) (Pt Warm) -Tenderness on Palpation (Uma-wound No Skin Appearance) -Ulcer Cleansing Wound Cleanser -Foul Odor after Cleansing No -Anesthetic Used 4% Lidocaine Solution [Edema Assessment] -Left Calf (cm) 44.6 -Left Ankle (cm) 27.2 WC - Nurse 2 - General Ulcer CM Notes Start: 05/08/19 11:28 Freq: Status: Active Protocol: Activity Type Activity Date Activity User E-Sign Co-Sign Detail Recorded Client Recorded Date Recorded By Document 05/08/19 12:03 MW [id number] 05/08/19 12:20 MW 05/08/19 12:03 Wound Center Nurse 2 [Procedure/Treatment] #13 L lateral elbow -Time 12:06 -Correct Patient Yes -Correct Side, Site, Position Yes -Correct Procedure Yes -Procedure Performed No -Post Debridement Size (cm) - Length 0 -Post Debridement Size (cm) - Width 0 -Post Debridement Size (cm) - Depth 0 -Total Square Cm 0 -Wound/Ulcer Outcome Healed- Epithelialized #12 Lateral Left Heel -Time 12:06 -Correct Patient Yes -Correct Side, Site, Position Yes -Correct Procedure Yes -Procedure Performed Yes -Type of Procedure Debridement -Clinical Debridement Subcutaneous -Post Debridement Size (cm) - Length 0.3 -Post Debridement Size (cm) - Width 0.7 -Post Debridement Size (cm) - Depth 0.2 -Total Square Cm 0.21 -Wound/Ulcer Outcome Not Healed -Ulcer Cleansing Rinsed/ Irrigated with Saline -Foul Odor after Cleansing No -Bioengineered Tissue No -Bleeding Controlled with Pressure -Offloading No -Treatment Response Procedure Tolerated Well #9 Lower Lumbar- Midline -Time 12:06 -Correct Patient Yes -Correct Side, Site, Position Yes -Correct Procedure Yes -Procedure Performed Yes -Type of Procedure Debridement -Clinical Debridement Subcutaneous -Post Debridement Size (cm) - Length 12.8 -Post Debridement Size (cm) - Width 3.8 -Post Debridement Size (cm) - Depth 0.4 -Total Square Cm 48.64 -Wound/Ulcer Outcome Not Healed -Ulcer Cleansing Rinsed/ Irrigated with Saline -Foul Odor after Cleansing No -Bioengineered Tissue No -Bleeding Controlled with Pressure -Offloading No -Treatment Response Procedure Tolerated Well [See Physician Procedure note for Specifics] Pain Scale: 0-10 Numeric [Pain] -Is Patient Pain Free? Yes Psych/Mental Status: Normal Affect, Appropriate Debridement Note Post-Debridement Measurements/Treatment WC - Nurse 2 - General Ulcer CM Notes Start: 05/08/19 11:28 Freq: Status: Active Protocol: Activity Type Activity Date Activity User E-Sign Co-Sign Detail Recorded Client Recorded Date Recorded By Document 05/08/19 12:03 MW [id number] 05/08/19 12:20 MW 05/08/19 12:03 Wound Center Nurse 2 #13 L lateral elbow -Time 12:06 -Correct Patient Yes -Correct Side, Site, Position Yes -Correct Procedure Yes -Procedure Performed No -Post Debridement Size (cm) - Length 0 -Post Debridement Size (cm) - Width 0 -Post Debridement Size (cm) - Depth 0 -Total Square Cm 0 -Wound/Ulcer Outcome Healed- Epithelialized #12 Lateral Left Heel -Time 12:06 -Correct Patient Yes -Correct Side, Site, Position Yes -Correct Procedure Yes -Procedure Performed Yes -Type of Procedure Debridement -Clinical Debridement Subcutaneous -Post Debridement Size (cm) - Length 0.3 -Post Debridement Size (cm) - Width 0.7 -Post Debridement Size (cm) - Depth 0.2 -Total Square Cm 0.21 -Wound/Ulcer Outcome Not Healed -Ulcer Cleansing Rinsed/ Irrigated with Saline -Foul Odor after Cleansing No -Bioengineered Tissue No -Bleeding Controlled with Pressure -Offloading No -Treatment Response Procedure Tolerated Well #9 Lower Lumbar- Midline -Time 12:06 -Correct Patient Yes -Correct Side, Site, Position Yes -Correct Procedure Yes -Procedure Performed Yes -Type of Procedure Debridement -Clinical Debridement Subcutaneous -Post Debridement Size (cm) - Length 12.8 -Post Debridement Size (cm) - Width 3.8 -Post Debridement Size (cm) - Depth 0.4 -Total Square Cm 48.64 -Wound/Ulcer Outcome Not Healed -Ulcer Cleansing Rinsed/ Irrigated with Saline -Foul Odor after Cleansing No -Bioengineered Tissue No -Bleeding Controlled with Pressure -Offloading No -Treatment Response Procedure Tolerated Well Pain Scale: 0-10 Numeric Is Patient Pain Free? Yes Wound debrided: left latreal elbow Laterality: Left No debridement was completed today - wound is healed - Additional Wound Wound debrided: left heel Laterality: Left Type of Debridement: Excisional debridement Anesthesia Used: 4% Lidocaine Solution, 5% Lidocaine Gel Depth: Down to and including healthy tissue, in the subcutaneous layer Percentage of wound debrided: 100 Instrument Used: 3mm curette Tissue Removed: yellow slough, devitalized tissue Severity: Fat Layer Exposed Amount of bleeding with debridement: Mild Bleeding Controlled with: Compression and gauze Patient tolerated procedure: Patient tolerated procedure well - Additional Wound Wound debrided: lower lumbar midline Laterality: Not Applicable Type of Debridement: Excisional debridement Anesthesia Used: 4% Lidocaine Solution, 5% Lidocaine Gel Depth: Down to and including healthy tissue, in the subcutaneous layer, to muscle Percentage of wound debrided: 100 Instrument Used: 7mm curette Tissue Removed: yellow slough, devitalized tissue Severity: Fat Layer Exposed Amount of bleeding with debridement: Mild Bleeding Controlled with: Compression and gauze Patient tolerated procedure: Patient tolerated procedure well Assessment/Plan Active Problems (Last Reviewed 03/30/19 @ 15:16 by Micky Mauro MD) 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 malnutrition. other multiple comorbidities. edema bilateral lower extremities. venous insufficiency. immunocompromised status. Plan: Evaluated and debrided his wounds. There has been mild improvement in his wounds. Will continue to alternate dressings with Aquacel and acetic acid to his back wound. His left elbow is healed. Will cover with KerraMaxCare and wound drape with changes once daily for heavy amount of drainage of his lumbar wound. His left heel will be treated with Aquacel extra for heavy drainage with changes daily. Continue increased protein intake. F/U in [address] Wick.
[2019-05-22 11:52] VITALS: BP 126/83; PULSE 86; RESP 16; TEMP 35.6; BMI 31.8
--- NOTE | 2019-05-22 17:58 | PN.PCM_ITS ---
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 Status: Chronic Current Visit: Yes Code(s): I83.025 - 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; L97.529 - Non-pressure chronic ulcer of other part of left foot with unspecified severity (3) Open wound of lower back Status: Chronic Current Visit: Yes Code(s): S31.000A - Unspecified open wound of lower back and pelvis without penetration into retroperitoneum, initial encounter Comment: with muscle and bone exposed s/p surgical debridement of abscess s/p lumbar spine surgery Type of Wound Date of Service: 05/22/19 Chief Complaint: Nonhealing surgical wound of lower back History of Wound: Mr. Marshall is a 73-yo who has been seen here at the wound center for a nonhealing surgical wound of his lower back s/p surgical debridement for an abscess s/p lumbar spine surgery. His original surgery on his lower back was approximately 2016 and he has had multiple complications since that time. He underwent surgical debridement on 03/04/[address] Davila at [facility] in [place] and was discharged with a wound vac for healing by secondary intention with possible muscle flap closure in the future. He followed up with his surgeon on 04/18/17 for further evaluation and recommendations and they plan to close the wound with a muscle flap but he continues to develop infections. He is also being seen by Infectious Disease as needed. CT 02/2018 did not show any abscess. Progress of Wound: Cuong is here for follow-up of his nonhealing surgical wound of his lower back. His reports same amount of drainage, drainage is still very heavy. His left elbow is healed. His ulcer to his left lateral heel is draining a little less, but still has moderate drainage. He is tolerating Aquacel dressing. Denies pain or odor. He has been tolerating Aquacel alternating with acetic acid dressings to his back. Triamcinolone cream has helped with the irritation of the periwound area. He continues to have very heavy drainage from his wound. He has had 10 applications of Purapply to his lower back wound with mild improvement which were completed 03/21/2018. Cuong saw the surgeon at [facility] again on August 27, 2018 and he does not think a skin flap would be an option but talked about doing a skin graft from his thigh to the lower back. He has been having increased pain in his back and left leg presumably from nerve impingement. Denies increased drainage, fever or chills. - Physical Exam Vital Signs Temp Pulse Resp BP 96.0 F L 86 16 126/83 H 05/22/19 11:52 05/22/19 11:52 05/22/19 11:52 05/22/19 11:52 General: Alert, Oriented x3, Cooperative, No apparent distress HEENT: Atraumatic, Normocephalic Oral: Moist Mucosa Extremities: Edema Skin: Ulcer/ Wound Wound Measurements and Assessment WC - Nurse 1 - General Ulcer Measurement Start: 05/08/19 11:28 Freq: Status: Active Protocol: Activity Type Activity Date Activity User E-Sign Co-Sign Detail Recorded Client Recorded Date Recorded By Document 05/22/19 11:52 MW [id number] 05/22/19 12:05 MW 05/22/19 11:52 Wound Center Nurse 1 [Ulcer Assessment] #12 Lateral Left Heel -Combined with other wound No -Current Size (cm) - Length 0.9 -Current Size (cm) - Width 0.4 -Current Size (cm) - Depth 0.1 -Total Square Cm 0.36 -Photo Taken No -Epithelialization None Present -Tunneling No -Undermining/Tunneling No -Circular Undermining No -Exudate Amt Small -Exudate Type Serous -Wound Margin Flat & Intact -Granulation Amt Small (1-33%) -Granulation Quality Pale -Slough/Fibrin Yes -Necrosis Amt Medium (34-66%) -Necrotic Tissue Type Adherent Slough -Structure Exposed N/A -Texture (Uma-wound Skin Appearance) Assessed, Scarring -Moisture (Uma-wound Skin Appearance Assessed,Dry/ ) Scaly -Color (Uma-wound Skin Appearance) Assessed,Rubor -Temperature (Uma-wound Skin No Abnormality Appearance) (Pt Warm) -Tenderness on Palpation (Uma-wound Yes Skin Appearance) -Ulcer Cleansing Rinsed/ Irrigated with Saline -Foul Odor after Cleansing No -Anesthetic Used 4% Lidocaine Solution #9 Lower Lumbar- Midline -Combined with other wound No -Current Size (cm) - Length 13.6 -Current Size (cm) - Width 4.5 -Current Size (cm) - Depth 0.4 -Total Square Cm 61.20 -Photo Taken No -Epithelialization None Present -Tunneling No -Undermining/Tunneling No -Circular Undermining No -Exudate Amt Large -Exudate Type Serosanguineous -Wound Margin Distinct, Outline Attached -Granulation Amt Medium (34-66%) -Granulation Quality Pale -Slough/Fibrin Yes -Necrosis Amt Medium (34-66%) -Necrotic Tissue Type Adherent Slough -Structure Exposed N/A -Texture (Uma-wound Skin Appearance) Assessed, Scarring -Moisture (Uma-wound Skin Appearance No Abnormality, ) Assessed -Color (Uma-wound Skin Appearance) No Abnormality, Assessed -Temperature (Uma-wound Skin No Abnormality Appearance) (Pt Warm) -Tenderness on Palpation (Uma-wound No Skin Appearance) -Ulcer Cleansing soap and water -Foul Odor after Cleansing No -Anesthetic Used 5% Lidocaine Gel [Edema Assessment] -Lower Limb Edema Present No WC - Nurse 2 - General Ulcer CM Notes Start: 05/08/19 11:28 Freq: Status: Active Protocol: Activity Type Activity Date Activity User E-Sign Co-Sign Detail Recorded Client Recorded Date Recorded By Document 05/22/19 12:21 DV [id number] 05/22/19 12:32 DV 05/22/19 12:21 Wound Center Nurse 2 [Procedure/Treatment] #12 Lateral Left Heel -Time 12:21 -Correct Patient Yes -Correct Side, Site, Position Yes -Correct Procedure Yes -Procedure Performed Yes -Type of Procedure Debridement -Clinical Debridement Subcutaneous -Post Debridement Size (cm) - Length 1.0 -Post Debridement Size (cm) - Width 0.4 -Post Debridement Size (cm) - Depth 0.2 -Total Square Cm 0.40 -Wound/Ulcer Outcome Not Healed -Ulcer Cleansing Rinsed/ Irrigated with Saline -Foul Odor after Cleansing No -Bioengineered Tissue No -Bleeding Controlled with Pressure -Offloading No -Treatment Response Procedure Tolerated Well #9 Lower Lumbar- Midline -Time 12:22 -Correct Patient Yes -Correct Side, Site, Position Yes -Correct Procedure Yes -Procedure Performed Yes -Type of Procedure Debridement -Clinical Debridement Subcutaneous -Post Debridement Size (cm) - Length 12.8 -Post Debridement Size (cm) - Width 3.9 -Post Debridement Size (cm) - Depth 0.4 -Total Square Cm 49.92 -Wound/Ulcer Outcome Not Healed -Ulcer Cleansing Rinsed/ Irrigated with Saline -Foul Odor after Cleansing No -Bioengineered Tissue No -Bleeding Controlled with Pressure -Offloading No -Treatment Response Procedure Tolerated Well [See Physician Procedure note for Specifics] Pain Scale: 0-10 Numeric [Pain] -Is Patient Pain Free? Yes Psych/Mental Status: Normal Affect, Appropriate Debridement Note Post-Debridement Measurements/Treatment WC - Nurse 2 - General Ulcer CM Notes Start: 05/08/19 11:28 Freq: Status: Active Protocol: Activity Type Activity Date Activity User E-Sign Co-Sign Detail Recorded Client Recorded Date Recorded By Document 05/08/19 12:03 MW [id number] 05/08/19 12:20 MW Document 05/22/19 12:21 DV [id number] 05/22/19 12:32 DV 05/08/19 05/22/19 12:03 12:21 Wound Center Nurse 2 #13 L lateral elbow -Time 12:06 -Correct Patient Yes -Correct Side, Site, Position Yes -Correct Procedure Yes -Procedure Performed No -Post Debridement Size (cm) - Length 0 -Post Debridement Size (cm) - Width 0 -Post Debridement Size (cm) - Depth 0 -Total Square Cm 0 -Wound/Ulcer Outcome Healed- Epithelialized #12 Lateral Left Heel -Time 12:06 12:21 -Correct Patient Yes Yes -Correct Side, Site, Position Yes Yes -Correct Procedure Yes Yes -Procedure Performed Yes Yes -Type of Procedure Debridement Debridement -Clinical Debridement Subcutaneous Subcutaneous -Post Debridement Size (cm) - Length 0.3 1.0 -Post Debridement Size (cm) - Width 0.7 0.4 -Post Debridement Size (cm) - Depth 0.2 0.2 -Total Square Cm 0.21 0.40 -Wound/Ulcer Outcome Not Healed Not Healed -Ulcer Cleansing Rinsed/ Rinsed/ Irrigated with Irrigated with Saline Saline -Foul Odor after Cleansing No No -Bioengineered Tissue No No -Bleeding Controlled with Pressure Pressure -Offloading No No -Treatment Response Procedure Procedure Tolerated Well Tolerated Well #9 Lower Lumbar- Midline -Time 12:06 12:22 -Correct Patient Yes Yes -Correct Side, Site, Position Yes Yes -Correct Procedure Yes Yes -Procedure Performed Yes Yes -Type of Procedure Debridement Debridement -Clinical Debridement Subcutaneous Subcutaneous -Post Debridement Size (cm) - Length 12.8 12.8 -Post Debridement Size (cm) - Width 3.8 3.9 -Post Debridement Size (cm) - Depth 0.4 0.4 -Total Square Cm 48.64 49.92 -Wound/Ulcer Outcome Not Healed Not Healed -Ulcer Cleansing Rinsed/ Rinsed/ Irrigated with Irrigated with Saline Saline -Foul Odor after Cleansing No No -Bioengineered Tissue No No -Bleeding Controlled with Pressure Pressure -Offloading No No -Treatment Response Procedure Procedure Tolerated Well Tolerated Well Pain Scale: 0-10 Numeric Is Patient Pain Free? Yes Yes Wound debrided: lateral left heel Laterality: Left Type of Debridement: Excisional debridement Anesthesia Used: 4% Lidocaine Solution, 5% Lidocaine Gel Depth: Down to and including healthy tissue, in the subcutaneous layer Percentage of wound debrided: 100 Instrument Used: 3mm curette Tissue Removed: yellow slough, devitalized tissue Severity: Fat Layer Exposed Amount of bleeding with debridement: Mild Bleeding Controlled with: Compression and gauze Patient tolerated procedure well - Additional Wound Wound debrided: lower lumbar midline Laterality: Not Applicable Type of Debridement: Excisional debridement Anesthesia Used: 4% Lidocaine Solution, 5% Lidocaine Gel Depth: Down to and including healthy tissue, in the subcutaneous layer, to muscle Percentage of wound debrided: 100 Instrument Used: 7mm curette Tissue Removed: yellow slough, devitalized tissue Severity: Fat Layer Exposed Amount of bleeding with debridement: Moderate Bleeding Controlled with: Compression and gauze, Gel Foam Patient tolerated procedure: Patient tolerated procedure well Assessment/Plan Assessment: 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 malnutrition. other multiple comorbidities. edema bilateral lower extremities. venous insufficiency. immunocompromised status. Plan: Evaluated and debrided his wounds. There has been mild improvement in his wounds. Will continue to alternate dressings with Aquacel and acetic acid to his back wound. Will cover with KerraMaxCare and wound drape with changes once daily for heavy amount of drainage of his lumbar wound. His left heel will be treated with Aquacel extra for heavy drainage with changes daily. Continue increased protein intake. F/U in [address] Wick.
[2019-06-05 11:54] VITALS: BP 125/63; PULSE 85; RESP 18; TEMP 36.1; BMI 31.8
--- NOTE | 2019-06-05 18:37 | PN.PCM_ITS ---
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 Marshall is a 73-yo who has been seen here at the wound center for a nonhealing surgical wound of his lower back s/p surgical debridement for an abscess s/p lumbar spine surgery. His original surgery on his lower back was approximately 2016 and he has had multiple complications since that time. He underwent surgical debridement on 03/04/[address] Davila at [facility] in [place] and was discharged with a wound vac for healing by secondary intention with possible muscle flap closure in the future. He followed up with his surgeon on 04/18/17 for further evaluation and recommendations and they plan to close the wound with a muscle flap but he continues to develop infections. He is also being seen by Infectious Disease as needed. CT 02/2018 did not show any abscess. Progress of Wound: Coung is here for follow-up of his nonhealing surgical wound of his lower back. His reports same amount of drainage, drainage is still very heavy. His ulcer to his left lateral heel is draining a little less, but still has moderate drainage. He is tolerating Aquacel dressing. Denies pain or odor. He has been tolerating Aquacel alternating with acetic acid dressings to his back. Triamcinolone cream has helped with the irritation of the periwound area. He continues to have very heavy drainage from his wound. He has had 10 applications of Purapply to his lower back wound with mild improvement which were completed 03/21/2018. Cuong saw the surgeon at [facility] again on August 27, 2018 and he does not think a skin flap would be an option but talked about doing a skin graft from his thigh to the lower back. He has been having increased pain in his back and left leg presumably from nerve impingement. Denies increased drainage, fever or chills. - Physical Exam Vital Signs Temp Pulse Resp BP 97 F L 85 18 125/63 H 06/05/19 11:54 06/05/19 11:54 06/05/19 11:54 06/05/19 11:54 General: Alert, Oriented x3, Cooperative, No apparent distress HEENT: Atraumatic, Normocephalic Oral: Moist Mucosa Extremities: Edema Skin: Ulcer/ Wound Wound Measurements and Assessment WC - Nurse 1 - General Ulcer Measurement Start: 05/08/19 11:28 Freq: Status: Active Protocol: Activity Type Activity Date Activity User E-Sign Co-Sign Detail Recorded Client Recorded Date Recorded By Document 06/05/19 11:54 RB [id number] 06/05/19 11:57 RB 06/05/19 11:54 Wound Center Nurse 1 [Ulcer Assessment] #12 Lateral Left Heel -Combined with other wound No -Current Size (cm) - Length 0.8 -Current Size (cm) - Width 0.5 -Current Size (cm) - Depth 0.2 -Total Square Cm 0.40 -Tunneling No -Undermining/Tunneling No -Circular Undermining No -Exudate Amt Small -Exudate Type Serosanguineous -Wound Margin Flat & Intact -Granulation Amt Medium (34-66%) -Granulation Quality [place] -Slough/Fibrin Yes -Necrosis Amt Small (1-33%) -Necrotic Tissue Type Adherent Slough -Structure Exposed N/A -Texture (Uma-wound Skin Appearance) Assessed,Callus -Moisture (Uma-wound Skin Appearance Assessed,Dry/ ) Scaly -Color (Uma-wound Skin Appearance) Assessed -Temperature (Uma-wound Skin No Abnormality Appearance) (Pt Warm) -Tenderness on Palpation (Uma-wound No Skin Appearance) -Ulcer Cleansing Wound Cleanser -Foul Odor after Cleansing No -Anesthetic Used 4% Lidocaine Solution #9 Lower Lumbar- Midline -Combined with other wound No -Current Size (cm) - Length 14 -Current Size (cm) - Width 4.5 -Current Size (cm) - Depth 0.4 -Total Square Cm 63.0 -Tunneling No -Undermining/Tunneling No -Circular Undermining No -Exudate Amt Medium -Exudate Type Serosanguineous -Wound Margin Thickened & Rolled Under -Granulation Amt Medium (34-66%) -Granulation Quality [place] -Slough/Fibrin Yes -Necrosis Amt Small (1-33%) -Necrotic Tissue Type Adherent Slough -Structure Exposed N/A -Texture (Uma-wound Skin Appearance) Scarring -Moisture (Uma-wound Skin Appearance Assessed ) -Color (Uma-wound Skin Appearance) Assessed -Temperature (Uma-wound Skin No Abnormality Appearance) (Pt Warm) -Tenderness on Palpation (Uma-wound No Skin Appearance) -Ulcer Cleansing Wound Cleanser -Foul Odor after Cleansing No -Anesthetic Used 4% Lidocaine Solution WC - Nurse 2 - General Ulcer CM Notes Start: 05/08/19 11:28 Freq: Status: Active Protocol: Activity Type Activity Date Activity User E-Sign Co-Sign Detail Recorded Client Recorded Date Recorded By Document 06/05/19 12:28 DV [id number] 06/05/19 12:44 DV 06/05/19 12:28 Wound Center Nurse 2 [Procedure/Treatment] #12 Lateral Left Heel -Time 12:32 -Correct Patient Yes -Correct Side, Site, Position Yes -Correct Procedure Yes -Procedure Performed Yes -Type of Procedure Debridement -Clinical Debridement Subcutaneous -Post Debridement Size (cm) - Length 0.9 -Post Debridement Size (cm) - Width 0.3 -Post Debridement Size (cm) - Depth 0.2 -Total Square Cm 0.27 -Wound/Ulcer Outcome Not Healed -Ulcer Cleansing Rinsed/ Irrigated with Saline -Foul Odor after Cleansing No -Bioengineered Tissue No -Bleeding Controlled with Pressure -Offloading No -Treatment Response Procedure Tolerated Well #9 Lower Lumbar- Midline -Time 12:33 -Correct Patient Yes -Correct Side, Site, Position Yes -Correct Procedure Yes -Procedure Performed Yes -Type of Procedure Debridement -Clinical Debridement Subcutaneous -Post Debridement Size (cm) - Length 12.8 -Post Debridement Size (cm) - Width 4.0 -Post Debridement Size (cm) - Depth 0.4 -Total Square Cm 51.20 -Wound/Ulcer Outcome Not Healed -Ulcer Cleansing Rinsed/ Irrigated with Saline -Foul Odor after Cleansing No -Bioengineered Tissue No -Bleeding Controlled with Pressure -Offloading No -Treatment Response Procedure Tolerated Well [See Physician Procedure note for Specifics] Pain Scale: 0-10 Numeric [Pain] -Is Patient Pain Free? Yes Psych/Mental Status: Normal Affect, Appropriate Debridement Note Post-Debridement Measurements/Treatment WC - Nurse 2 - General Ulcer CM Notes Start: 05/08/19 11:28 Freq: Status: Active Protocol: Activity Type Activity Date Activity User E-Sign Co-Sign Detail Recorded Client Recorded Date Recorded By Document 05/08/19 12:03 MW [id number] 05/08/19 12:20 MW Document 05/22/19 12:21 DV [id number] 05/22/19 12:32 DV Document 06/05/19 12:28 DV [id number] 06/05/19 12:44 DV 05/08/19 05/22/19 06/05/19 12:03 12:21 12:28 Wound Center Nurse 2 #13 L lateral elbow -Time 12:06 -Correct Patient Yes -Correct Side, Site, Position Yes -Correct Procedure Yes -Procedure Performed No -Post Debridement Size (cm) - Length 0 -Post Debridement Size (cm) - Width 0 -Post Debridement Size (cm) - Depth 0 -Total Square Cm 0 -Wound/Ulcer Outcome Healed- Epithelialized #12 Lateral Left Heel -Time 12:06 12:21 12:32 -Correct Patient Yes Yes Yes -Correct Side, Site, Position Yes Yes Yes -Correct Procedure Yes Yes Yes -Procedure Performed Yes Yes Yes -Type of Procedure Debridement Debridement Debridement -Clinical Debridement Subcutaneous Subcutaneous Subcutaneous -Post Debridement Size (cm) - Length 0.3 1.0 0.9 -Post Debridement Size (cm) - Width 0.7 0.4 0.3 -Post Debridement Size (cm) - Depth 0.2 0.2 0.2 -Total Square Cm 0.21 0.40 0.27 -Wound/Ulcer Outcome Not Healed Not Healed Not Healed -Ulcer Cleansing Rinsed/ Rinsed/ Rinsed/ Irrigated with Irrigated with Irrigated with Saline Saline Saline -Foul Odor after Cleansing No No No -Bioengineered Tissue No No No -Bleeding Controlled with Pressure Pressure Pressure -Offloading No No No -Treatment Response Procedure Procedure Procedure Tolerated Well Tolerated Well Tolerated Well #9 Lower Lumbar- Midline -Time 12:06 12:22 12:33 -Correct Patient Yes Yes Yes -Correct Side, Site, Position Yes Yes Yes -Correct Procedure Yes Yes Yes -Procedure Performed Yes Yes Yes -Type of Procedure Debridement Debridement Debridement -Clinical Debridement Subcutaneous Subcutaneous Subcutaneous -Post Debridement Size (cm) - Length 12.8 12.8 12.8 -Post Debridement Size (cm) - Width 3.8 3.9 4.0 -Post Debridement Size (cm) - Depth 0.4 0.4 0.4 -Total Square Cm 48.64 49.92 51.20 -Wound/Ulcer Outcome Not Healed Not Healed Not Healed -Ulcer Cleansing Rinsed/ Rinsed/ Rinsed/ Irrigated with Irrigated with Irrigated with Saline Saline Saline -Foul Odor after Cleansing No No No -Bioengineered Tissue No No No -Bleeding Controlled with Pressure Pressure Pressure -Offloading No No No -Treatment Response Procedure Procedure Procedure Tolerated Well Tolerated Well Tolerated Well Pain Scale: 0-10 Numeric Is Patient Pain Free? Yes Yes Yes Wound debrided: left lower heel Laterality: Left Type of Debridement: Excisional debridement Anesthesia Used: 4% Lidocaine Solution, 5% Lidocaine Gel Depth: Down to and including healthy tissue, in the subcutaneous layer Percentage of wound debrided: 100 Instrument Used: 3mm curette Tissue Removed: yellow slough and devitalized tissue Severity: Fat Layer Exposed Amount of bleeding with debridement: Mild Bleeding Controlled with: Compression and gauze Patient tolerated procedure well - Additional Wound Wound debrided: lower lumbar midline Laterality: Not Applicable Type of Debridement: Excisional debridement Anesthesia Used: 4% Lidocaine Solution, 5% Lidocaine Gel Depth: Down to and including healthy tissue, in the subcutaneous layer Percentage of wound debrided: 100 Instrument Used: 5mm curette Tissue Removed: yellow slough and devitalized tissue Severity: Fat Layer Exposed Amount of bleeding with debridement: Mild Bleeding Controlled with: Compression and gauze Patient tolerated procedure: Patient tolerated procedure well Assessment/Plan Assessment: 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 malnutrition. other multiple comorbidities. edema bilateral lower extremities. venous insufficiency. immunocompromised status. Plan: Evaluated and debrided his wounds. There has been mild improvement in his wounds. Will continue to alternate dressings with Aquacel and acetic acid to his back wound. Will cover with KerraMaxCare and wound drape with changes once daily for heavy amount of drainage of his lumbar wound. His left heel will be treated with Aquacel extra for heavy drainage with changes daily. Continue increased protein intake. F/U in [address] Wick.
== END 2019-06-05 23:59 ==
LOC: WC 11:30
PROVIDERS: Family Provider Family Medicine; PCP Family Medicine; Referring Provider Family Medicine; Visit Provider Family Medicine
DX: I83.024 Varicose veins of left lower extremity with ulcer of heel and midfoot (principal); L97.422 Non-pressure chronic ulcer of left heel and midfoot with fat layer exposed; T81.31XA Disruption of external operation (surgical) wound, not elsewhere classified, initial encounter; Y83.8 Other surgical procedures as the cause of abnormal reaction of the patient, or of later complication, without mention of misadventure at the time of the procedure; I87.2 Venous insufficiency (chronic) (peripheral); R60.0 Localized edema
CPT/HCPCS: 11042; 11045

== ENCOUNTER 2019-07-03 11:00 | Outpatient (RCR) | payer MEDICARE, OTHER, SELFPAY ==
[2015-10-31 10:00] VITALS: BMI 34.9
[2019-06-06 00:29] VITALS: BP 125/63; PULSE 85; RESP 18; TEMP 36.1; BMI 29.5
[2019-06-19 11:14] VITALS: BP 147/75; PULSE 80; RESP 18; TEMP 36.1; BMI 29.5
--- NOTE | 2019-06-19 15:37 | PN.PCM_ITS ---
(1) Non-healing surgical wound Status: Chronic Current Visit: Yes Qualifiers: Encounter type: subsequent encounter Qualified Code(s): T81.89XD - Other complications of procedures, not elsewhere classified, subsequent encounter Code(s): T81.89XA - Other complications of procedures, not elsewhere classified, initial encounter (2) Open wound of lumbar region with complication Status: Chronic Current Visit: Yes Code(s): S31.000A - Unspecified open wound of lower back and pelvis without penetration into retroperitoneum, initial encounter Comment: h/o osteomyelitis and is chronic nonhealing surgical wound s/p lumbar decompression surgery Type of Wound Date of Service: 06/19/19 Chief Complaint: Nonhealing surgical wound of lower back History of Wound: Mr. Marshall is a 73-yo who has been seen here at the wound center for a nonhealing surgical wound of his lower back s/p surgical debridement for an abscess s/p lumbar spine surgery. His original surgery on his lower back was approximately 2016 and he has had multiple complications since that time. He underwent surgical debridement on 03/04/[address] Davila at [facility] in [place] and was discharged with a wound vac for healing by secondary intention with possible muscle flap closure in the future. He followed up with his surgeon on 04/18/17 for further evaluation and recommendations and they plan to close the wound with a muscle flap but he continues to develop infections. He is also being seen by Infectious Disease as needed. CT 02/2018 did not show any abscess. Progress of Wound: Cuong is here for follow-up of his nonhealing surgical wound of his lower back. His reports same amount of drainage as previous, drainage is still very heavy. His ulcer to his left lateral heel is draining a little less, but still has moderate drainage. He is tolerating Aquacel dressing. Denies pain or odor. He has been tolerating Aquacel alternating with acetic acid dressings to his back. Triamcinolone cream has helped with the irritation of the periwound area. He continues to have very heavy drainage from his wound. He has had 10 applications of Purapply to his lower back wound with mild improvement which were completed 03/21/2018. Cuong saw the surgeon at [facility] again on August 27, 2018 and he does not think a skin flap would be an option but talked about doing a skin graft from his thigh to the lower back. He has been having increased pain in his back and left leg presumably from nerve impingement. Denies increased drainage, fever or chills. - Physical Exam Vital Signs Temp Pulse Resp BP 96.9 F L 80 18 147/75 H 06/19/19 11:14 06/19/19 11:14 06/19/19 11:14 06/19/19 11:14 General: Alert, Oriented x3, Cooperative, No apparent distress HEENT: Atraumatic, Normocephalic Oral: Moist Mucosa Extremities: Edema Wound Measurements and Assessment WC - Nurse 1 - General Ulcer Measurement Start: 06/19/19 11:14 Freq: Status: Active Protocol: Activity Type Activity Date Activity User E-Sign Co-Sign Detail Recorded Client Recorded Date Recorded By Document 06/19/19 11:14 RB [id number] 06/19/19 11:16 RB 06/19/19 11:14 Wound Center Nurse 1 [Ulcer Assessment] #12 Lateral Left Heel -Combined with other wound No -Current Size (cm) - Length 0.3 -Current Size (cm) - Width 0.3 -Current Size (cm) - Depth 0.1 -Total Square Cm 0.09 -Photo Taken No -Tunneling No -Undermining/Tunneling No -Circular Undermining No -Exudate Amt Small -Exudate Type Serosanguineous -Wound Margin Thickened -Granulation Amt Medium (34-66%) -Granulation Quality [place] -Slough/Fibrin Yes -Necrosis Amt Small (1-33%) -Necrotic Tissue Type Adherent Slough -Structure Exposed N/A -Texture (Uma-wound Skin Appearance) Assessed,Callus -Moisture (Uma-wound Skin Appearance Assessed ) -Color (Uma-wound Skin Appearance) Assessed -Temperature (Uma-wound Skin No Abnormality Appearance) (Pt Warm) -Tenderness on Palpation (Uma-wound No Skin Appearance) -Ulcer Cleansing Wound Cleanser -Foul Odor after Cleansing No -Anesthetic Used 5% Lidocaine Gel #9 Lower Lumbar- Midline -Combined with other wound No -Current Size (cm) - Length 13.5 -Current Size (cm) - Width 4.5 -Current Size (cm) - Depth 0.2 -Total Square Cm 60.75 -Tunneling No -Undermining/Tunneling No -Circular Undermining No -Exudate Amt Large -Exudate Type Serosanguineous -Wound Margin Thickened & Rolled Under -Granulation Amt Large (67-100%) -Granulation Quality [place] -Slough/Fibrin Yes -Necrosis Amt Small (1-33%) -Necrotic Tissue Type Adherent Slough -Structure Exposed N/A -Texture (Uma-wound Skin Appearance) Assessed, Scarring -Moisture (Uma-wound Skin Appearance Assessed ) -Color (Uma-wound Skin Appearance) Assessed -Temperature (Uma-wound Skin No Abnormality Appearance) (Pt Warm) -Tenderness on Palpation (Uma-wound No Skin Appearance) -Ulcer Cleansing Wound Cleanser -Foul Odor after Cleansing No -Anesthetic Used 4% Lidocaine Solution WC - Nurse 2 - General Ulcer CM Notes Start: 06/19/19 11:14 Freq: Status: Active Protocol: Activity Type Activity Date Activity User E-Sign Co-Sign Detail Recorded Client Recorded Date Recorded By Document 06/19/19 11:21 MW [id number] 06/19/19 11:44 MW 06/19/19 11:21 Wound Center Nurse 2 [Procedure/Treatment] #12 Lateral Left Heel -Time 11:29 -Correct Patient Yes -Correct Side, Site, Position Yes -Correct Procedure Yes -Procedure Performed Yes -Type of Procedure Debridement -Clinical Debridement Subcutaneous -Post Debridement Size (cm) - Length 0.8 -Post Debridement Size (cm) - Width 0.3 -Post Debridement Size (cm) - Depth 0.2 -Total Square Cm 0.24 -Wound/Ulcer Outcome Not Healed -Ulcer Cleansing Rinsed/ Irrigated with Saline -Foul Odor after Cleansing No -Bioengineered Tissue No -Bleeding Controlled with Pressure -Offloading No -Treatment Response Procedure Tolerated Well #9 Lower Lumbar- Midline -Time 11:25 -Correct Patient Yes -Correct Side, Site, Position Yes -Correct Procedure Yes -Procedure Performed Yes -Type of Procedure Debridement -Clinical Debridement Subcutaneous -Post Debridement Size (cm) - Length 13.0 -Post Debridement Size (cm) - Width 4.0 -Post Debridement Size (cm) - Depth 0.4 -Total Square Cm 52.00 -Wound/Ulcer Outcome Not Healed -Ulcer Cleansing Rinsed/ Irrigated with Saline -Foul Odor after Cleansing No -Bioengineered Tissue No -Bleeding Controlled with Pressure -Offloading No -Treatment Response Procedure Tolerated Well [See Physician Procedure note for Specifics] Pain Scale: 0-10 Numeric [Pain] -Is Patient Pain Free? Yes Psych/Mental Status: Normal Affect, Appropriate Debridement Note Post-Debridement Measurements/Treatment WC - Nurse 2 - General Ulcer CM Notes Start: 06/19/19 11:14 Freq: Status: Active Protocol: Activity Type Activity Date Activity User E-Sign Co-Sign Detail Recorded Client Recorded Date Recorded By Document 06/19/19 11:21 MW [id number] 06/19/19 11:44 MW 06/19/19 11:21 Wound Center Nurse 2 #12 Lateral Left Heel -Time 11:29 -Correct Patient Yes -Correct Side, Site, Position Yes -Correct Procedure Yes -Procedure Performed Yes -Type of Procedure Debridement -Clinical Debridement Subcutaneous -Post Debridement Size (cm) - Length 0.8 -Post Debridement Size (cm) - Width 0.3 -Post Debridement Size (cm) - Depth 0.2 -Total Square Cm 0.24 -Wound/Ulcer Outcome Not Healed -Ulcer Cleansing Rinsed/ Irrigated with Saline -Foul Odor after Cleansing No -Bioengineered Tissue No -Bleeding Controlled with Pressure -Offloading No -Treatment Response Procedure Tolerated Well #9 Lower Lumbar- Midline -Time 11:25 -Correct Patient Yes -Correct Side, Site, Position Yes -Correct Procedure Yes -Procedure Performed Yes -Type of Procedure Debridement -Clinical Debridement Subcutaneous -Post Debridement Size (cm) - Length 13.0 -Post Debridement Size (cm) - Width 4.0 -Post Debridement Size (cm) - Depth 0.4 -Total Square Cm 52.00 -Wound/Ulcer Outcome Not Healed -Ulcer Cleansing Rinsed/ Irrigated with Saline -Foul Odor after Cleansing No -Bioengineered Tissue No -Bleeding Controlled with Pressure -Offloading No -Treatment Response Procedure Tolerated Well Pain Scale: 0-10 Numeric Is Patient Pain Free? Yes Wound debrided: lateral left heel Laterality: Left Type of Debridement: Excisional debridement Anesthesia Used: 4% Lidocaine Solution, 5% Lidocaine Gel Depth: Down to and including healthy tissue, in the subcutaneous layer Percentage of wound debrided: 100 Instrument Used: 3mm curette Tissue Removed: yellow slough, devitalized tissue Severity: Fat Layer Exposed Amount of bleeding with debridement: Mild Bleeding Controlled with: Compression and gauze Patient tolerated procedure well - Additional Wound Wound debrided: lower lumbar midline Laterality: Not Applicable Type of Debridement: Excisional debridement Anesthesia Used: 4% Lidocaine Solution, 5% Lidocaine Gel Depth: Down to and including healthy tissue, in the subcutaneous layer, to muscle Percentage of wound debrided: 100 Instrument Used: 7mm curette Tissue Removed: yellow slough, devitalized tissue Severity: Fat Layer Exposed Amount of bleeding with debridement: Moderate Bleeding Controlled with: Compression and gauze, Gel Foam Patient tolerated procedure: Patient tolerated procedure well Assessment/Plan Active Problems (Last Reviewed 05/21/19 @ 14:12 by Micky Mauro MD) Non-healing surgical wound (Chronic) Open wound of lumbar region with complication (Chronic) h/o osteomyelitis and is chronic nonhealing surgical wound s/p lumbar decompression surgery Assessment: 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 malnutrition. other multiple comorbidities. edema bilateral lower extremities. venous insufficiency. immunocompromised status. Plan: Evaluated and debrided his wounds. There continues to be mild improvement in his wounds. Will continue to alternate dressings with Aquacel and acetic acid to his back wound. Will cover with KerraMaxCare and wound drape with changes once daily for heavy amount of drainage of his lumbar wound. His left heel will be treated with Guera for heavy drainage with changes daily. Continue increased protein intake. F/U in [address] Wick.
[2019-07-03 11:08] VITALS: RESP 16; TEMP 36.5; BMI 29.5
--- NOTE | 2019-07-05 18:32 | PCM.WC.PN ---
(1) Non-healing surgical wound Status: Chronic Qualifiers: Encounter type: subsequent encounter Qualified Code(s): T81.89XD - Other complications of procedures, not elsewhere classified, subsequent encounter Code(s): T81.89XA - Other complications of procedures, not elsewhere classified, initial encounter (2) Open wound of lumbar region with complication Status: Chronic Code(s): S31.000A - Unspecified open wound of lower back and pelvis without penetration into retroperitoneum, initial encounter Comment: h/o osteomyelitis and is chronic nonhealing surgical wound s/p lumbar decompression surgery Type of Wound Date of Service: 07/03/19 Chief Complaint: Nonhealing surgical wound of lower back History of Wound: Mr. Marshall is a 73-yo who has been seen here at the wound center for a nonhealing surgical wound of his lower back s/p surgical debridement for an abscess s/p lumbar spine surgery. His original surgery on his lower back was approximately 2016 and he has had multiple complications since that time. He underwent surgical debridement on 03/04/[address] Davila at [facility] in [place] and was discharged with a wound vac for healing by secondary intention with possible muscle flap closure in the future. He followed up with his surgeon on 04/18/17 for further evaluation and recommendations and they plan to close the wound with a muscle flap but he continues to develop infections. He is also being seen by Infectious Disease as needed. CT 02/2018 did not show any abscess. Progress of Wound: Cuong is here for follow-up of his nonhealing surgical wound of his lower back. His reports same amount of drainage as previous, drainage is still very heavy. His ulcer to his left lateral heel is draining a little less, but still has moderate drainage. He is tolerating Aquacel dressing. Denies pain or odor. He has been tolerating Aquacel alternating with acetic acid dressings to his back. Triamcinolone cream has helped with the irritation of the periwound area. He continues to have very heavy drainage from his wound. He has had 10 applications of Purapply to his lower back wound with mild improvement which were completed 03/21/2018. Cuong saw the surgeon at [facility] again on August 27, 2018 and he does not think a skin flap would be an option but talked about doing a skin graft from his thigh to the lower back. He has been having increased pain in his back and left leg presumably from nerve impingement. Denies increased drainage, fever or chills. - Physical Exam Vital Signs Temp Pulse Resp BP 97.7 F L 80 16 147/75 H 07/03/19 11:08 06/19/19 11:14 07/03/19 11:08 06/19/19 11:14 General: Alert, Oriented x3, Cooperative, No apparent distress HEENT: Atraumatic, Normocephalic Oral: Moist Mucosa Abdomen: Soft, Non Tender Extremities: Edema Skin: Ulcer/ Wound Wound Measurements and Assessment WC - Nurse 1 - General Ulcer Measurement Start: 06/19/19 11:14 Freq: Status: Active Protocol: Activity Type Activity Date Activity User E-Sign Co-Sign Detail Recorded Client Recorded Date Recorded By Document 07/03/19 11:08 [facility] [id number] 07/03/19 11:20 [facility] 07/03/19 11:08 Wound Center Nurse 1 [Ulcer Assessment] #12 Lateral Left Heel -Combined with other wound No -Current Size (cm) - Length 0.3 -Current Size (cm) - Width 0.9 -Current Size (cm) - Depth 0.2 -Total Square Cm 0.27 -Photo Taken No -Epithelialization None Present -Tunneling No -Undermining/Tunneling No -Circular Undermining No -Exudate Amt None Present -Wound Margin Distinct, Outline Attached -Granulation Amt Medium (34-66%) -Granulation Quality Red -Slough/Fibrin Yes -Necrosis Amt Small (1-33%) -Necrotic Tissue Type Adherent Slough -Texture (Uma-wound Skin Appearance) Assessed, Scarring -Moisture (Uma-wound Skin Appearance Assessed,Dry/ ) Scaly -Color (Uma-wound Skin Appearance) Assessed -Temperature (Uma-wound Skin No Abnormality Appearance) (Pt Warm) -Tenderness on Palpation (Uma-wound No Skin Appearance) -Ulcer Cleansing Rinsed/ Irrigated with Saline -Foul Odor after Cleansing No -Anesthetic Used 5% Lidocaine Gel #9 Lower Lumbar- Midline -Combined with other wound No -Current Size (cm) - Length 13.8 -Current Size (cm) - Width 4.1 -Current Size (cm) - Depth 0.4 -Total Square Cm 56.58 -Photo Taken No -Epithelialization None Present -Tunneling No -Undermining/Tunneling No -Circular Undermining No -Exudate Amt Large -Exudate Type Serosanguineous -Wound Margin Thickened & Rolled Under -Granulation Amt Medium (34-66%) -Granulation Quality Pale,Red -Slough/Fibrin Yes -Necrosis Amt Medium (34-66%) -Necrotic Tissue Type Adherent Slough -Texture (Uma-wound Skin Appearance) Assessed, Scarring -Moisture (Uma-wound Skin Appearance Assessed ) -Color (Uma-wound Skin Appearance) Assessed, Erythema -Temperature (Uma-wound Skin No Abnormality Appearance) (Pt Warm) -Tenderness on Palpation (Uma-wound No Skin Appearance) -Ulcer Cleansing SOAPY WATER -Foul Odor after Cleansing No -Anesthetic Used 4% Lidocaine Solution WC - Nurse 2 - General Ulcer CM Notes Start: 06/19/19 11:14 Freq: Status: Active Protocol: Activity Type Activity Date Activity User E-Sign Co-Sign Detail Recorded Client Recorded Date Recorded By Document 07/03/19 11:31 MW [id number] 07/03/19 11:52 MW 07/03/19 11:31 Wound Center Nurse 2 [Procedure/Treatment] #12 Lateral Left Heel -Time 11:33 -Correct Patient Yes -Correct Side, Site, Position Yes -Correct Procedure Yes -Procedure Performed Yes -Type of Procedure Debridement -Clinical Debridement Subcutaneous -Post Debridement Size (cm) - Length 0.3 -Post Debridement Size (cm) - Width 0.7 -Post Debridement Size (cm) - Depth 0.2 -Total Square Cm 0.21 -Wound/Ulcer Outcome Not Healed -Ulcer Cleansing Rinsed/ Irrigated with Saline -Foul Odor after Cleansing No -Bioengineered Tissue No -Bleeding Controlled with Pressure -Offloading No -Treatment Response Procedure Tolerated Well #9 Lower Lumbar- Midline -Time 11:32 -Correct Patient Yes -Correct Side, Site, Position Yes -Correct Procedure Yes -Procedure Performed Yes -Type of Procedure Debridement -Clinical Debridement Subcutaneous -Post Debridement Size (cm) - Length 13.0 -Post Debridement Size (cm) - Width 4.0 -Post Debridement Size (cm) - Depth 0.4 -Total Square Cm 52.00 -Wound/Ulcer Outcome Not Healed -Ulcer Cleansing Rinsed/ Irrigated with Saline -Foul Odor after Cleansing No -Bioengineered Tissue No -Bleeding Controlled with Pressure -Offloading No -Treatment Response Procedure Tolerated Well [See Physician Procedure note for Specifics] Pain Scale: 0-10 Numeric [Pain] -Is Patient Pain Free? Yes Psych/Mental Status: Normal Affect, Appropriate Debridement Note Post-Debridement Measurements/Treatment WC - Nurse 2 - General Ulcer CM Notes Start: 06/19/19 11:14 Freq: Status: Active Protocol: Activity Type Activity Date Activity User E-Sign Co-Sign Detail Recorded Client Recorded Date Recorded By Document 06/19/19 11:21 MW [id number] 06/19/19 11:44 MW Document 07/03/19 11:31 MW [id number] 07/03/19 11:52 MW 06/19/19 07/03/19 11:21 11:31 Wound Center Nurse 2 #12 Lateral Left Heel -Time 11:29 11:33 -Correct Patient Yes Yes -Correct Side, Site, Position Yes Yes -Correct Procedure Yes Yes -Procedure Performed Yes Yes -Type of Procedure Debridement Debridement -Clinical Debridement Subcutaneous Subcutaneous -Post Debridement Size (cm) - Length 0.8 0.3 -Post Debridement Size (cm) - Width 0.3 0.7 -Post Debridement Size (cm) - Depth 0.2 0.2 -Total Square Cm 0.24 0.21 -Wound/Ulcer Outcome Not Healed Not Healed -Ulcer Cleansing Rinsed/ Rinsed/ Irrigated with Irrigated with Saline Saline -Foul Odor after Cleansing No No -Bioengineered Tissue No No -Bleeding Controlled with Pressure Pressure -Offloading No No -Treatment Response Procedure Procedure Tolerated Well Tolerated Well #9 Lower Lumbar- Midline -Time 11:25 11:32 -Correct Patient Yes Yes -Correct Side, Site, Position Yes Yes -Correct Procedure Yes Yes -Procedure Performed Yes Yes -Type of Procedure Debridement Debridement -Clinical Debridement Subcutaneous Subcutaneous -Post Debridement Size (cm) - Length 13.0 13.0 -Post Debridement Size (cm) - Width 4.0 4.0 -Post Debridement Size (cm) - Depth 0.4 0.4 -Total Square Cm 52.00 52.00 -Wound/Ulcer Outcome Not Healed Not Healed -Ulcer Cleansing Rinsed/ Rinsed/ Irrigated with Irrigated with Saline Saline -Foul Odor after Cleansing No No -Bioengineered Tissue No No -Bleeding Controlled with Pressure Pressure -Offloading No No -Treatment Response Procedure Procedure Tolerated Well Tolerated Well Pain Scale: 0-10 Numeric Is Patient Pain Free? Yes Yes Wound debrided: left lateral foot Laterality: Left Type of Debridement: Excisional debridement Anesthesia Used: 4% Lidocaine Solution, 5% Lidocaine Gel Depth: Down to and including healthy tissue, in the subcutaneous layer Percentage of wound debrided: 100 Instrument Used: 3mm curette Tissue Removed: yellow slough, devitalized tissue Severity: Fat Layer Exposed Amount of bleeding with debridement: Mild Bleeding Controlled with: Compression and gauze Patient tolerated procedure well - Additional Wound Wound debrided: lower lumbar midline Laterality: Not Applicable Type of Debridement: Excisional debridement Anesthesia Used: 4% Lidocaine Solution, 5% Lidocaine Gel Depth: Down to and including healthy tissue, in the subcutaneous layer, to muscle Percentage of wound debrided: 100 Instrument Used: 5mm curette Tissue Removed: yellow slough, devitalized tissue Severity: Fat Layer Exposed Amount of bleeding with debridement: Mild Bleeding Controlled with: Compression and gauze Patient tolerated procedure: Patient tolerated procedure well Assessment/Plan Assessment: 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 malnutrition. other multiple comorbidities. edema bilateral lower extremities. venous insufficiency. immunocompromised status. Plan: Evaluated and debrided his wounds. There continues to be mild improvement in his wounds. Will continue to alternate dressings with Aquacel and acetic acid to his back wound. Will cover with KerraMaxCare and wound drape with changes once daily for heavy amount of drainage of his lumbar wound. His left heel will be treated with Guera for heavy drainage with changes daily. Continue increased protein intake. F/U in [address] Wick.
--- NOTE | 2019-07-15 09:30 | WC ---
spoke with Marzena martinez Bradley to find out the status of order and was informed it would be shipped out today
== END 2019-07-04 23:59 ==
LOC: WC 11:00
PROVIDERS: Family Provider Family Medicine; PCP Family Medicine; Referring Provider Family Medicine; Visit Provider Family Medicine
DX: T81.31XA Disruption of external operation (surgical) wound, not elsewhere classified, initial encounter (principal); Y83.8 Other surgical procedures as the cause of abnormal reaction of the patient, or of later complication, without mention of misadventure at the time of the procedure; L97.422 Non-pressure chronic ulcer of left heel and midfoot with fat layer exposed; I87.2 Venous insufficiency (chronic) (peripheral)
CPT/HCPCS: 11042; 11045

== ENCOUNTER 2019-07-31 11:00 | Outpatient (RCR) | payer MEDICARE, OTHER, SELFPAY ==
[2015-10-31 10:00] VITALS: BMI 34.9
[2019-07-05 00:24] VITALS: BP 147/75; PULSE 80; RESP 16; TEMP 36.5
[2019-07-17 11:38] VITALS: BP 127/61; PULSE 83; RESP 16; TEMP 36.4; BMI 29.5
--- NOTE | 2019-07-17 18:15 | PN.PCM_ITS ---
(1) Non-healing surgical wound Status: Chronic Current Visit: Yes Qualifiers: Encounter type: subsequent encounter Code(s): T81.89XA - Other complications of procedures, not elsewhere classified, initial encounter (2) Open wound of lumbar region with complication Status: Chronic Current Visit: Yes Code(s): S31.000A - Unspecified open wound of lower back and pelvis without penetration into retroperitoneum, initial encounter Comment: h/o osteomyelitis and is chronic nonhealing surgical wound s/p lumbar decompression surgery Type of Wound Date of Service: 07/17/19 Chief Complaint: Nonhealing surgical wound of lower back History of Wound: Mr. Marshall is a 73-yo who has been seen here at the wound center for a nonhealing surgical wound of his lower back s/p surgical debridement for an abscess s/p lumbar spine surgery. His original surgery on his lower back was approximately 2015 and he has had multiple complications since that time. He underwent surgical debridement on 03/04/[address] Davila at [facility] in [place] and was discharged with a wound vac for healing by secondary intention with possible muscle flap closure in the future. He followed up with his surgeon on 04/18/17 for further evaluation and recommendations and they plan to close the wound with a muscle flap but he continues to develop infections. He is also being seen by Infectious Disease as needed. CT 02/2018 did not show any abscess. Progress of Wound: Cuong is here for follow-up of his nonhealing surgical wound of his lower back. His reports same amount of drainage as previous, drainage is still very heavy. His ulcer to his left lateral heel is draining a little less, but still has moderate drainage. He is tolerating Aquacel dressing. Denies pain or odor. He has been tolerating Aquacel alternating with acetic acid dressings to his back. Triamcinolone cream has helped with the irritation of the periwound area. He continues to have very heavy drainage from his wound. He has had 10 applications of Purapply to his lower back wound with mild improvement which were completed 03/21/2018. Cuong saw the surgeon at [facility] again on August 27, 2018 and he does not think a skin flap would be an option but talked about doing a skin graft from his thigh to the lower back. He has been having increased pain in his back and left leg presumably from nerve impingement. Denies increased drainage, fever or chills. - Physical Exam Vital Signs Temp Pulse Resp BP 97.6 F L 83 16 127/61 H 07/17/19 11:38 07/17/19 11:38 07/17/19 11:38 07/17/19 11:38 General: Alert, Oriented x3, Cooperative, No apparent distress HEENT: Atraumatic, Normocephalic Oral: Moist Mucosa Extremities: Edema Skin: Ulcer/ Wound Wound Measurements and Assessment WC - Nurse 1 - General Ulcer Measurement Start: 07/17/19 11:38 Freq: Status: Active Protocol: Activity Type Activity Date Activity User E-Sign Co-Sign Detail Recorded Client Recorded Date Recorded By Document 07/17/19 11:38 MW [id number] 07/17/19 11:46 MW 07/17/19 11:38 Wound Center Nurse 1 [Ulcer Assessment] #12 Lateral Left Heel -Combined with other wound No -Current Size (cm) - Length 0.1 -Current Size (cm) - Width 0.4 -Current Size (cm) - Depth 0.3 -Total Square Cm 0.04 -Photo Taken No -Epithelialization None Present -Tunneling No -Undermining/Tunneling No -Circular Undermining No -Exudate Amt Small -Exudate Type Serous -Wound Margin Distinct, Outline Attached -Granulation Amt Small (1-33%) -Granulation Quality Rafael Gonzalez -Slough/Fibrin Yes -Necrosis Amt Small (1-33%) -Necrotic Tissue Type Adherent Slough -Texture (Uma-wound Skin Appearance) Assessed,Callus ,Scarring -Moisture (Uma-wound Skin Appearance Assessed, ) Maceration -Color (Uma-wound Skin Appearance) Assessed -Temperature (Uma-wound Skin No Abnormality Appearance) (Pt Warm) -Tenderness on Palpation (Uma-wound No Skin Appearance) -Ulcer Cleansing Rinsed/ Irrigated with Saline -Foul Odor after Cleansing No -Anesthetic Used 4% Lidocaine Solution #9 Lower Lumbar- Midline -Combined with other wound No -Current Size (cm) - Length 14.2 -Current Size (cm) - Width 4.1 -Current Size (cm) - Depth 0.4 -Total Square Cm 58.22 -Photo Taken No -Epithelialization None Present -Tunneling No -Undermining/Tunneling No -Circular Undermining No -Exudate Amt Small -Exudate Type Yellow/Green -Wound Margin Thickened & Rolled Under -Granulation Amt Medium (34-66%) -Granulation Quality Pale,Red -Slough/Fibrin Yes -Necrosis Amt Small (1-33%) -Necrotic Tissue Type Adherent Slough -Texture (Mua-wound Skin Appearance) Assessed, Scarring -Moisture (Uma-wound Skin Appearance Assessed ) -Color (Uma-wound Skin Appearance) Assessed -Temperature (Uma-wound Skin No Abnormality Appearance) (Pt Warm) -Tenderness on Palpation (Uma-wound No Skin Appearance) -Ulcer Cleansing Rinsed/ Irrigated with Saline -Foul Odor after Cleansing No -Anesthetic Used 4% Lidocaine Solution WC - Nurse 2 - General Ulcer CM Notes Start: 07/17/19 11:38 Freq: Status: Active Protocol: Activity Type Activity Date Activity User E-Sign Co-Sign Detail Recorded Client Recorded Date Recorded By Document 07/17/19 12:03 DV [id number] 07/17/19 12:12 DV 07/17/19 12:03 Wound Center Nurse 2 [Procedure/Treatment] #12 Lateral Left Heel -Time 12:06 -Correct Patient Yes -Correct Side, Site, Position Yes -Correct Procedure Yes -Procedure Performed Yes -Type of Procedure Debridement -Clinical Debridement Subcutaneous -Post Debridement Size (cm) - Length 0.3 -Post Debridement Size (cm) - Width 0.7 -Post Debridement Size (cm) - Depth 0.2 -Total Square Cm 0.21 -Wound/Ulcer Outcome Not Healed -Ulcer Cleansing Rinsed/ Irrigated with Saline -Foul Odor after Cleansing No -Bioengineered Tissue No -Bleeding Controlled with Pressure -Offloading No -Treatment Response Procedure Tolerated Well #9 Lower Lumbar- Midline -Time 12:06 -Correct Patient Yes -Correct Side, Site, Position Yes -Correct Procedure Yes -Procedure Performed Yes -Type of Procedure Debridement -Clinical Debridement Subcutaneous -Post Debridement Size (cm) - Length 13.8 -Post Debridement Size (cm) - Width 3.8 -Post Debridement Size (cm) - Depth 0.4 -Total Square Cm 52.44 -Wound/Ulcer Outcome Not Healed -Ulcer Cleansing Rinsed/ Irrigated with Saline -Foul Odor after Cleansing No -Bioengineered Tissue No -Bleeding Controlled with Pressure -Offloading No -Treatment Response Procedure Tolerated Well [See Physician Procedure note for Specifics] Pain Scale: 0-10 Numeric [Pain] -Is Patient Pain Free? Yes Psych/Mental Status: Normal Affect, Appropriate Debridement Note Post-Debridement Measurements/Treatment WC - Nurse 2 - General Ulcer CM Notes Start: 07/17/19 11:38 Freq: Status: Active Protocol: Activity Type Activity Date Activity User E-Sign Co-Sign Detail Recorded Client Recorded Date Recorded By Document 07/17/19 12:03 DV [id number] 07/17/19 12:12 DV 07/17/19 12:03 Wound Center Nurse 2 #12 Lateral Left Heel -Time 12:06 -Correct Patient Yes -Correct Side, Site, Position Yes -Correct Procedure Yes -Procedure Performed Yes -Type of Procedure Debridement -Clinical Debridement Subcutaneous -Post Debridement Size (cm) - Length 0.3 -Post Debridement Size (cm) - Width 0.7 -Post Debridement Size (cm) - Depth 0.2 -Total Square Cm 0.21 -Wound/Ulcer Outcome Not Healed -Ulcer Cleansing Rinsed/ Irrigated with Saline -Foul Odor after Cleansing No -Bioengineered Tissue No -Bleeding Controlled with Pressure -Offloading No -Treatment Response Procedure Tolerated Well #9 Lower Lumbar- Midline -Time 12:06 -Correct Patient Yes -Correct Side, Site, Position Yes -Correct Procedure Yes -Procedure Performed Yes -Type of Procedure Debridement -Clinical Debridement Subcutaneous -Post Debridement Size (cm) - Length 13.8 -Post Debridement Size (cm) - Width 3.8 -Post Debridement Size (cm) - Depth 0.4 -Total Square Cm 52.44 -Wound/Ulcer Outcome Not Healed -Ulcer Cleansing Rinsed/ Irrigated with Saline -Foul Odor after Cleansing No -Bioengineered Tissue No -Bleeding Controlled with Pressure -Offloading No -Treatment Response Procedure Tolerated Well Pain Scale: 0-10 Numeric Is Patient Pain Free? Yes Wound debrided: lateral left heel Laterality: Left Type of Debridement: Excisional debridement Anesthesia Used: 4% Lidocaine Solution, 5% Lidocaine Gel Depth: Down to and including healthy tissue, in the subcutaneous layer Percentage of wound debrided: 100 Instrument Used: 3mm curette Tissue Removed: yellow slough, devitalized tissue Severity: Fat Layer Exposed Amount of bleeding with debridement: Mild Bleeding Controlled with: Compression and gauze Patient tolerated procedure well - Additional Wound Wound debrided: lower lumbar midline Laterality: Not Applicable Type of Debridement: Excisional debridement Anesthesia Used: 4% Lidocaine Solution Depth: Down to and including healthy tissue, in the subcutaneous layer, to muscle Percentage of wound debrided: 100 Instrument Used: 7mm curette Tissue Removed: yellow slough, devitalized tissue Severity: Fat Layer Exposed Amount of bleeding with debridement: Mild Bleeding Controlled with: Compression and gauze Patient tolerated procedure: Patient tolerated procedure well Assessment/Plan Active Problems (Last Reviewed 05/21/19 @ 14:[address] Micky Mauro MD) Non-healing surgical wound (Chronic) Open wound of lumbar region with complication (Chronic) h/o osteomyelitis and is chronic nonhealing surgical wound s/p lumbar decompression surgery Assessment: 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 malnutrition. other multiple comorbidities. edema bilateral lower extremities. venous insufficiency. immunocompromised status. Plan: Evaluated and debrided his wounds. There continues to be mild improvement in his wounds. Will continue to alternate dressings with Aquacel and acetic acid to his back wound. Will cover with KerraMaxCare and wound drape with changes once daily for heavy amount of drainage of his lumbar wound. His left heel will be treated with Guera for heavy drainage with changes daily. Continue increased protein intake. F/U in [address] Wick.
[2019-07-31 11:25] VITALS: BP 126/68; PULSE 76; RESP 16; TEMP 36.6; BMI 29.5
--- NOTE | 2019-07-31 16:52 | PN.PCM_ITS ---
(1) Non-healing surgical wound Status: Chronic Current Visit: Yes Qualifiers: Encounter type: subsequent encounter Code(s): T81.89XA - Other complications of procedures, not elsewhere classified, initial encounter (2) Open wound of lumbar region with complication Status: Chronic Current Visit: Yes Code(s): S31.000A - Unspecified open wound of lower back and pelvis without penetration into retroperitoneum, initial encounter Comment: h/o osteomyelitis and is chronic nonhealing surgical wound s/p lumbar decompression surgery Type of Wound Date of Service: 07/31/19 Chief Complaint: Nonhealing surgical wound of lower back History of Wound: Mr. Marshall is a 73-yo who has been seen here at the wound center for a nonhealing surgical wound of his lower back s/p surgical debridement for an abscess s/p lumbar spine surgery. His original surgery on his lower back was approximately 2015 and he has had multiple complications since that time. He underwent surgical debridement on 03/04/[address] Davila at [facility] in [place] and was discharged with a wound vac for healing by secondary intention with possible muscle flap closure in the future. He followed up with his surgeon on 04/18/17 for further evaluation and recommendations and they plan to close the wound with a muscle flap but he continues to develop infections. He is also being seen by Infectious Disease as needed. CT 02/2018 did not show any abscess. Progress of Wound: Cuong is here for follow-up of his nonhealing surgical wound of his lower back. His reports same amount of drainage as previous, drainage is still very heavy. His ulcer to his left lateral heel is draining a little less, but still has moderate drainage. He is tolerating Aquacel dressing. Denies pain or odor. He has been tolerating Aquacel alternating with acetic acid dressings to his back. Triamcinolone cream has helped with the irritation of the periwound area. He continues to have very heavy drainage from his wound. He has had 10 applications of Purapply to his lower back wound with mild improvement which were completed 03/21/2018. Cuong saw the surgeon at [facility] again on August 27, 2018 and he does not think a skin flap would be an option but talked about doing a skin graft from his thigh to the lower back. He has been having increased pain in his back and left leg presumably from nerve impingement. Denies increased drainage, fever or chills. - Physical Exam Vital Signs Temp Pulse Resp BP 97.8 F 76 16 126/68 H 07/31/19 11:25 07/31/19 11:25 07/31/19 11:25 07/31/19 11:25 General: Alert, Oriented x3, Cooperative, No apparent distress HEENT: Atraumatic, Normocephalic Oral: Moist Mucosa Neck: Supple Abdomen: Obese Extremities: Edema Skin: Ulcer/ Wound Wound Measurements and Assessment WC - Nurse 1 - General Ulcer Measurement Start: 07/17/19 11:38 Freq: Status: Active Protocol: Activity Type Activity Date Activity User E-Sign Co-Sign Detail Recorded Client Recorded Date Recorded By Document 07/31/19 11:25 CP [id number] 07/31/19 11:37 CP 07/31/19 11:25 Wound Center Nurse 1 [Ulcer Assessment] #12 Lateral Left Heel -Current Size (cm) - Length 0.1 -Current Size (cm) - Width 0.1 -Current Size (cm) - Depth 0.1 -Total Square Cm 0.01 -Granulation Amt None Present (0 %) -Slough/Fibrin Yes -Necrosis Amt Large (67-100%) -Necrotic Tissue Type Adherent Slough -Structure Exposed N/A -Texture (Uma-wound Skin Appearance) No Abnormality -Moisture (Uma-wound Skin Appearance Dry/Scaly ) -Color (Uma-wound Skin Appearance) No Abnormality -Temperature (Uma-wound Skin No Abnormality Appearance) (Pt Warm) -Tenderness on Palpation (Uma-wound No Skin Appearance) -Ulcer Cleansing Rinsed/ Irrigated with Saline -Foul Odor after Cleansing No -Anesthetic Used 4% Lidocaine Solution #9 Lower Lumbar- Midline -Current Size (cm) - Length 13.8 -Current Size (cm) - Width 4.9 -Current Size (cm) - Depth 0.4 -Total Square Cm 67.62 -Epithelialization None Present -Tunneling No -Undermining/Tunneling No -Exudate Amt Small -Exudate Type Serosanguineous -Wound Margin Thickened & Rolled Under -Granulation Amt Large (67-100%) -Granulation Quality [place] -Slough/Fibrin Yes -Necrosis Amt Small (1-33%) -Necrotic Tissue Type Adherent Slough -Structure Exposed N/A -Texture (Uma-wound Skin Appearance) No Abnormality -Moisture (Uma-wound Skin Appearance No Abnormality ) -Color (Uma-wound Skin Appearance) No Abnormality -Temperature (Uma-wound Skin No Abnormality Appearance) (Pt Warm) -Tenderness on Palpation (Uma-wound No Skin Appearance) -Ulcer Cleansing Rinsed/ Irrigated with Saline -Foul Odor after Cleansing No -Anesthetic Used 4% Lidocaine Solution ELIZABETH - Nurse 2 - General Ulcer CM Notes Start: 07/17/19 11:38 Freq: Status: Active Protocol: Activity Type Activity Date Activity User E-Sign Co-Sign Detail Recorded Client Recorded Date Recorded By Document 07/31/19 11:46 DV [id number] 07/31/19 12:01 DV 07/31/19 11:46 Wound Center Nurse 2 [Procedure/Treatment] #12 Lateral Left Heel -Time 11:49 -Correct Patient Yes -Correct Side, Site, Position Yes -Correct Procedure Yes -Procedure Performed Yes -Type of Procedure Debridement -Clinical Debridement Subcutaneous -Post Debridement Size (cm) - Length 0.2 -Post Debridement Size (cm) - Width 0.5 -Post Debridement Size (cm) - Depth 0.1 -Total Square Cm 0.10 -Wound/Ulcer Outcome Not Healed -Ulcer Cleansing Rinsed/ Irrigated with Saline -Foul Odor after Cleansing No -Bioengineered Tissue No -Bleeding Controlled with Pressure -Offloading No -Treatment Response Procedure Tolerated Well #9 Lower Lumbar- Midline -Time 11:49 -Correct Patient Yes -Correct Side, Site, Position Yes -Correct Procedure Yes -Procedure Performed Yes -Type of Procedure Debridement -Clinical Debridement Subcutaneous -Post Debridement Size (cm) - Length 13.8 -Post Debridement Size (cm) - Width 3.8 -Post Debridement Size (cm) - Depth 0.4 -Total Square Cm 52.44 -Wound/Ulcer Outcome Not Healed -Ulcer Cleansing Rinsed/ Irrigated with Saline -Foul Odor after Cleansing No -Bioengineered Tissue No -Bleeding Controlled with Pressure -Offloading No -Treatment Response Procedure Tolerated Well [See Physician Procedure note for Specifics] Pain Scale: 0-10 Numeric [Pain] -Is Patient Pain Free? Yes Psych/Mental Status: Normal Affect, Appropriate Debridement Note Post-Debridement Measurements/Treatment ELIZABETH - Nurse 2 - General Ulcer CM Notes Start: 07/17/19 11:38 Freq: Status: Active Protocol: Activity Type Activity Date Activity User E-Sign Co-Sign Detail Recorded Client Recorded Date Recorded By Document 07/17/19 12:03 DV [id number] 07/17/19 12:12 DV Document 07/31/19 11:46 DV [id number] 07/31/19 12:01 DV 07/17/19 07/31/19 12:03 11:46 Wound Center Nurse 2 #12 Lateral Left Heel -Time 12:06 11:49 -Correct Patient Yes Yes -Correct Side, Site, Position Yes Yes -Correct Procedure Yes Yes -Procedure Performed Yes Yes -Type of Procedure Debridement Debridement -Clinical Debridement Subcutaneous Subcutaneous -Post Debridement Size (cm) - Length 0.3 0.2 -Post Debridement Size (cm) - Width 0.7 0.5 -Post Debridement Size (cm) - Depth 0.2 0.1 -Total Square Cm 0.21 0.10 -Wound/Ulcer Outcome Not Healed Not Healed -Ulcer Cleansing Rinsed/ Rinsed/ Irrigated with Irrigated with Saline Saline -Foul Odor after Cleansing No No -Bioengineered Tissue No No -Bleeding Controlled with Pressure Pressure -Offloading No No -Treatment Response Procedure Procedure Tolerated Well Tolerated Well #9 Lower Lumbar- Midline -Time 12:06 11:49 -Correct Patient Yes Yes -Correct Side, Site, Position Yes Yes -Correct Procedure Yes Yes -Procedure Performed Yes Yes -Type of Procedure Debridement Debridement -Clinical Debridement Subcutaneous Subcutaneous -Post Debridement Size (cm) - Length 13.8 13.8 -Post Debridement Size (cm) - Width 3.8 3.8 -Post Debridement Size (cm) - Depth 0.4 0.4 -Total Square Cm 52.44 52.44 -Wound/Ulcer Outcome Not Healed Not Healed -Ulcer Cleansing Rinsed/ Rinsed/ Irrigated with Irrigated with Saline Saline -Foul Odor after Cleansing No No -Bioengineered Tissue No No -Bleeding Controlled with Pressure Pressure -Offloading No No -Treatment Response Procedure Procedure Tolerated Well Tolerated Well Pain Scale: 0-10 Numeric Is Patient Pain Free? Yes Yes Wound debrided: lower lumbar midline Type of Debridement: Excisional debridement Anesthesia Used: 4% Lidocaine Solution, 5% Lidocaine Gel Depth: Down to and including healthy tissue, in the subcutaneous layer, to muscle Percentage of wound debrided: 100 Instrument Used: 5mm curette Tissue Removed: yellow slough, devitalized tissue Severity: Fat Layer Exposed Amount of bleeding with debridement: Mild Bleeding Controlled with: Compression and gauze Patient tolerated procedure well - Additional Wound Wound debrided: left lateral heel Laterality: Left Type of Debridement: Excisional debridement Anesthesia Used: 4% Lidocaine Solution, 5% Lidocaine Gel Depth: Down to and including healthy tissue, in the subcutaneous layer Percentage of wound debrided: 100 Instrument Used: 3mm curette Tissue Removed: yellow slough, devitalized tissue Severity: Fat Layer Exposed Amount of bleeding with debridement: Mild Bleeding Controlled with: Compression and gauze Patient tolerated procedure: Patient tolerated procedure well Assessment/Plan Active Problems (Last Reviewed 05/21/19 @ 14:[address] Micky Mauro MD) Non-healing surgical wound (Chronic) Open wound of lumbar region with complication (Chronic) h/o osteomyelitis and is chronic nonhealing surgical wound s/p lumbar decompression surgery Assessment: 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 malnutrition. other multiple comorbidities. edema bilateral lower extremities. venous insufficiency. immunocompromised status. Plan: Evaluated and debrided his wounds. There continues to be mild improvement in his wounds. Will continue to alternate dressings with Aquacel and acetic acid to his back wound. Will cover with KerraMaxCare and wound drape with changes once daily for heavy amount of drainage of his lumbar wound. His left heel will be treated with Guera for heavy drainage with changes daily. Continue increased protein intake. F/U in [address] Wick.
== END 2019-08-04 23:59 ==
LOC: WC 11:00
PROVIDERS: Family Provider Family Medicine; PCP Family Medicine; Referring Provider Family Medicine; Visit Provider Family Medicine
DX: T81.31XA Disruption of external operation (surgical) wound, not elsewhere classified, initial encounter (principal); Y83.8 Other surgical procedures as the cause of abnormal reaction of the patient, or of later complication, without mention of misadventure at the time of the procedure; I87.2 Venous insufficiency (chronic) (peripheral); L97.422 Non-pressure chronic ulcer of left heel and midfoot with fat layer exposed; R60.0 Localized edema
CPT/HCPCS: 11042; 11045

== ENCOUNTER → 2019-08-12 11:30 | Outpatient (CLI) | payer MEDICARE, OTHER, SELFPAY ==
[2015-10-31 10:00] VITALS: BMI 34.9
[2019-07-31 11:25] VITALS: BMI 29.5
[2019-08-16 12:07] LABS: Testosterone, Free 1.37 ng/dL (5.00-21.00)
[2019-08-16 15:55] LABS: Testosterone, % Free 1.85 % (1.50-4.20); Testosterone, Total 74 ng/dL (264-916)
== END ==
PROVIDERS: PCP Family Medicine; Referring Provider Family Medicine; Visit Provider Family Medicine
DX: E29.1 Testicular hypofunction (principal)
CPT/HCPCS: 36415; 84146; 84402; 84403

== ENCOUNTER 2019-08-14 08:48 | Outpatient (RCR) | payer MEDICARE, OTHER, SELFPAY ==
[2015-10-31 10:00] VITALS: BMI 34.9
[2019-08-05 00:21] VITALS: BP 126/68; PULSE 76; RESP 16; TEMP 36.6
[2019-08-14 11:24] VITALS: BP 127/61; PULSE 82; RESP 18; TEMP 36.3; BMI 29.5
--- NOTE | 2019-08-14 18:32 | PN.PCM_ITS ---
(1) Non-healing surgical wound Status: Chronic Current Visit: Yes Qualifiers: Encounter type: subsequent encounter Qualified Code(s): T81.89XD - Other complications of procedures, not elsewhere classified, subsequent encounter Code(s): T81.89XA - Other complications of procedures, not elsewhere classified, initial encounter (2) Open wound of lumbar region with complication Status: Chronic Current Visit: Yes Code(s): S31.000A - Unspecified open wound of lower back and pelvis without penetration into retroperitoneum, initial encounter Comment: h/o osteomyelitis and is chronic nonhealing surgical wound s/p lumbar decompression surgery Type of Wound Date of Service: 08/14/19 Chief Complaint: Nonhealing surgical wound of lower back History of Wound: Mr. Marshall is a 73-yo who has been seen here at the wound center for a nonhealing surgical wound of his lower back s/p surgical debridement for an abscess s/p lumbar spine surgery. His original surgery on his lower back was approximately 2016 and he has had multiple complications since that time. He underwent surgical debridement on 03/04/[address] Davila at [facility] in [place] and was discharged with a wound vac for healing by secondary intention with possible muscle flap closure in the future. He followed up with his surgeon on 04/18/17 for further evaluation and recommendations and they plan to close the wound with a muscle flap but he continues to develop infections. He is also being seen by Infectious Disease as needed. CT 02/2018 did not show any abscess. Progress of Wound: Cuong is here for follow-up of his nonhealing surgical wound of his lower back. His reports same amount of drainage as previous, drainage is still very heavy. His ulcer to his left lateral heel is draining a little less, but still has moderate drainage. He is tolerating Aquacel dressing. Denies pain or odor. He has been tolerating Aquacel alternating with acetic acid dressings to his back. Triamcinolone cream has helped with the irritation of the periwound area. He continues to have very heavy drainage from his wound. He has had 10 applications of Purapply to his lower back wound with mild improvement which were completed 03/21/2018. Cuong saw the surgeon at [facility] again on August 27, 2018 and he does not think a skin flap would be an option but talked about doing a skin graft from his thigh to the lower back. He has been having increased pain in his back and left leg presumably from nerve impingement. Denies increased drainage, fever or chills. - Physical Exam Vital Signs Temp Pulse Resp BP 97.3 F L 82 18 127/61 H 08/14/19 11:24 08/14/19 11:24 08/14/19 11:24 08/14/19 11:24 General: Alert, Oriented x3, Cooperative, No apparent distress HEENT: Atraumatic, Normocephalic Oral: Moist Mucosa Extremities: Edema Skin: Ulcer/ Wound Wound Measurements and Assessment WC - Nurse 1 - General Ulcer Measurement Start: 08/14/19 11:23 Freq: Status: Active Protocol: Activity Type Activity Date Activity User E-Sign Co-Sign Detail Recorded Client Recorded Date Recorded By Document 08/14/19 11:24 RB [id number] 08/14/19 11:26 RB 08/14/19 11:24 Wound Center Nurse 1 [Ulcer Assessment] #12 Lateral Left Heel -Combined with other wound No -Current Size (cm) - Length 0.1 -Current Size (cm) - Width 0.1 -Current Size (cm) - Depth 0.1 -Total Square Cm 0.01 -Tunneling No -Undermining/Tunneling No -Circular Undermining No -Exudate Amt Small -Exudate Type Serosanguineous -Wound Margin Flat & Intact -Granulation Amt Medium (34-66%) -Granulation Quality [place] -Slough/Fibrin Yes -Necrosis Amt Small (1-33%) -Necrotic Tissue Type Adherent Slough -Structure Exposed N/A -Texture (Uma-wound Skin Appearance) Callus -Moisture (Uma-wound Skin Appearance Dry/Scaly ) -Color (Uma-wound Skin Appearance) Assessed -Temperature (Uma-wound Skin No Abnormality Appearance) (Pt Warm) -Tenderness on Palpation (Uma-wound No Skin Appearance) -Ulcer Cleansing Wound Cleanser -Foul Odor after Cleansing No -Anesthetic Used 4% Lidocaine Solution #9 Lower Lumbar- Midline -Current Size (cm) - Length 13.5 -Current Size (cm) - Width 5.3 -Current Size (cm) - Depth 0.4 -Total Square Cm 71.55 -Tunneling No -Undermining/Tunneling No -Circular Undermining No -Exudate Amt Large -Exudate Type Serosanguineous -Wound Margin Thickened & Rolled Under -Granulation Amt Medium (34-66%) -Granulation Quality [place] -Slough/Fibrin Yes -Necrosis Amt Medium (34-66%) -Necrotic Tissue Type Adherent Slough -Structure Exposed N/A -Texture (Uma-wound Skin Appearance) Assessed -Moisture (Uma-wound Skin Appearance Assessed ) -Color (Uma-wound Skin Appearance) Assessed -Temperature (Uma-wound Skin No Abnormality Appearance) (Pt Warm) -Tenderness on Palpation (Uma-wound No Skin Appearance) -Ulcer Cleansing Wound Cleanser -Foul Odor after Cleansing No -Anesthetic Used 4% Lidocaine Solution WC - Nurse 2 - General Ulcer CM Notes Start: 08/14/19 11:23 Freq: Status: Active Protocol: Activity Type Activity Date Activity User E-Sign Co-Sign Detail Recorded Client Recorded Date Recorded By Document 08/14/19 12:12 DV [id number] 08/14/19 12:20 DV 08/14/19 12:12 Wound Center Nurse 2 [Procedure/Treatment] #12 Lateral Left Heel -Time 12:12 -Correct Patient Yes -Correct Side, Site, Position Yes -Correct Procedure Yes -Procedure Performed Yes -Type of Procedure Debridement -Clinical Debridement Selective -Post Debridement Size (cm) - Length 0.2 -Post Debridement Size (cm) - Width 0.6 -Post Debridement Size (cm) - Depth 0.1 -Total Square Cm 0.12 -Wound/Ulcer Outcome Not Healed -Ulcer Cleansing Rinsed/ Irrigated with Saline -Foul Odor after Cleansing No -Bioengineered Tissue No -Bleeding Controlled with Pressure -Offloading Yes -Type of Offloading Surgical Shoe -Treatment Response Procedure Tolerated Well #9 Lower Lumbar- Midline -Time 12:15 -Correct Patient Yes -Correct Side, Site, Position Yes -Correct Procedure Yes -Procedure Performed Yes -Type of Procedure Debridement -Clinical Debridement Subcutaneous -Post Debridement Size (cm) - Length 12.8 -Post Debridement Size (cm) - Width 3.4 -Post Debridement Size (cm) - Depth 0.4 -Total Square Cm 43.52 -Wound/Ulcer Outcome Not Healed -Ulcer Cleansing Rinsed/ Irrigated with Saline -Foul Odor after Cleansing No -Bioengineered Tissue No -Bleeding Controlled with Pressure -Offloading Yes -Type of Offloading Surgical Shoe -Treatment Response Procedure Tolerated Well [See Physician Procedure note for Specifics] Pain Scale: 0-10 Numeric [Pain] -Is Patient Pain Free? Yes Psych/Mental Status: Normal Affect, Appropriate Debridement Note Post-Debridement Measurements/Treatment WC - Nurse 2 - General Ulcer CM Notes Start: 08/14/19 11:23 Freq: Status: Active Protocol: Activity Type Activity Date Activity User E-Sign Co-Sign Detail Recorded Client Recorded Date Recorded By Document 08/14/19 12:12 DV [id number] 08/14/19 12:20 DV 08/14/19 12:12 Wound Center Nurse 2 #12 Lateral Left Heel -Time 12:12 -Correct Patient Yes -Correct Side, Site, Position Yes -Correct Procedure Yes -Procedure Performed Yes -Type of Procedure Debridement -Clinical Debridement Selective -Post Debridement Size (cm) - Length 0.2 -Post Debridement Size (cm) - Width 0.6 -Post Debridement Size (cm) - Depth 0.1 -Total Square Cm 0.12 -Wound/Ulcer Outcome Not Healed -Ulcer Cleansing Rinsed/ Irrigated with Saline -Foul Odor after Cleansing No -Bioengineered Tissue No -Bleeding Controlled with Pressure -Offloading Yes -Type of Offloading Surgical Shoe -Treatment Response Procedure Tolerated Well #9 Lower Lumbar- Midline -Time 12:15 -Correct Patient Yes -Correct Side, Site, Position Yes -Correct Procedure Yes -Procedure Performed Yes -Type of Procedure Debridement -Clinical Debridement Subcutaneous -Post Debridement Size (cm) - Length 12.8 -Post Debridement Size (cm) - Width 3.4 -Post Debridement Size (cm) - Depth 0.4 -Total Square Cm 43.52 -Wound/Ulcer Outcome Not Healed -Ulcer Cleansing Rinsed/ Irrigated with Saline -Foul Odor after Cleansing No -Bioengineered Tissue No -Bleeding Controlled with Pressure -Offloading Yes -Type of Offloading Surgical Shoe -Treatment Response Procedure Tolerated Well Pain Scale: 0-10 Numeric Is Patient Pain Free? Yes Wound debrided: lower lumbar midline Laterality: Not Applicable Type of Debridement: Excisional debridement Anesthesia Used: 4% Lidocaine Solution Depth: Down to and including healthy tissue, in the subcutaneous layer, to muscle Percentage of wound debrided: 100 Instrument Used: 7mm curette Tissue Removed: yellow slough, devitalized tissue Severity: Fat Layer Exposed Amount of bleeding with debridement: Moderate Bleeding Controlled with: Compression and gauze, Gel Foam Patient tolerated procedure well - Additional Wound Wound debrided: left lateral heel Laterality: Left Type of Debridement: Selective debridement Anesthesia Used: 4% Lidocaine Solution Depth: Down to and including healthy tissue, in the subcutaneous layer Percentage of wound debrided: 100 Instrument Used: 3mm curette Tissue Removed: yellow slough, devitalized tissue Severity: Fat Layer Exposed Amount of bleeding with debridement: Mild Bleeding Controlled with: Compression and gauze Patient tolerated procedure: Patient tolerated procedure well Assessment/Plan Active Problems (Last Reviewed 05/21/19 @ 14:[address] Micky Mauro MD) Non-healing surgical wound (Chronic) Open wound of lumbar region with complication (Chronic) h/o osteomyelitis and is chronic nonhealing surgical wound s/p lumbar decompression surgery Assessment: 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 malnutrition. other multiple comorbidities. edema bilateral lower extremities. venous insufficiency. immunocompromised status. Plan: Evaluated and debrided his wounds. There continues to be mild improvement in his wounds. Will continue to alternate dressings with Aquacel and acetic acid to his back wound. Will cover with KerraMaxCare and wound drape with changes once daily for heavy amount of drainage of his lumbar wound. His left heel will be treated with Guera for heavy drainage with changes daily. Continue increased protein intake. F/U in [address] Wick.
== END 2019-09-03 23:59 ==
LOC: WC 08:48
PROVIDERS: Family Provider Family Medicine; PCP Family Medicine; Referring Provider Family Medicine; Visit Provider Family Medicine
DX: T81.31XA Disruption of external operation (surgical) wound, not elsewhere classified, initial encounter (principal); Y83.8 Other surgical procedures as the cause of abnormal reaction of the patient, or of later complication, without mention of misadventure at the time of the procedure; I87.2 Venous insufficiency (chronic) (peripheral); L97.422 Non-pressure chronic ulcer of left heel and midfoot with fat layer exposed; R60.0 Localized edema
CPT/HCPCS: 11042; 11045; 97597

== ENCOUNTER 2019-10-02 11:00 | Outpatient (RCR) | payer MEDICARE, OTHER, SELFPAY ==
[2015-10-31 10:00] VITALS: BMI 34.9
[2019-08-21 09:38] VITALS: BMI 28.9
[2019-09-04 00:08] VITALS: BP 127/61; PULSE 82; RESP 18; TEMP 36.3
[2019-09-04 11:16] VITALS: BP 126/67; PULSE 73; RESP 18; TEMP 36.2; BMI 28.9
--- NOTE | 2019-09-04 17:28 | PN.PCM_ITS ---
(1) Non-healing surgical wound Status: Chronic Current Visit: Yes Qualifiers: Encounter type: subsequent encounter Code(s): T81.89XA - Other complications of procedures, not elsewhere classified, initial encounter (2) Open wound of lumbar region with complication Status: Chronic Current Visit: Yes Code(s): S31.000A - Unspecified open wound of lower back and pelvis without penetration into retroperitoneum, initial encounter Comment: h/o osteomyelitis and is chronic nonhealing surgical wound s/p lumbar decompression surgery Type of Wound Date of Service: 09/04/19 Chief Complaint: Nonhealing surgical wound of lower back History of Wound: Mr. Marshall is a 73-yo who has been seen here at the wound center for a nonhealing surgical wound of his lower back s/p surgical debridement for an abscess s/p lumbar spine surgery. His original surgery on his lower back was approximately 2015 and he has had multiple complications since that time. He underwent surgical debridement on 03/04/[address] Davila at [facility] in [place] and was discharged with a wound vac for healing by secondary intention with possible muscle flap closure in the future. He followed up with his surgeon on 04/18/17 for further evaluation and recommendations and they plan to close the wound with a muscle flap but he continues to develop infections. He is also being seen by Infectious Disease as needed. CT 02/2018 did not show any abscess. Progress of Wound: Cuong is here for follow-up of his nonhealing surgical wound of his lower back. His reports same amount of drainage as previous, drainage is still very heavy. His ulcer to his left lateral heel is draining a little less, but still has moderate drainage. He is tolerating Guera dressing. Denies pain or odor. He has been tolerating Aquacel alternating with acetic acid dressings to his back. Triamcinolone cream has helped with the irritation of the periwound area. He continues to have very heavy drainage from his lumbar surgical wound. He has had 10 applications of Purapply to his lower back wound with mild improvement which were completed 03/21/2018. Cuong saw the surgeon at [facility] on August 27, 2018 and he does not think a skin flap would be an option but talked about doing a skin graft from his thigh to the lower back. He has been having increased pain in his back and left leg presumably from nerve impingement. Denies increased drainage, fever or chills. - Physical Exam Vital Signs Temp Pulse Resp BP 97.2 F L 73 18 126/67 H 09/04/19 11:16 09/04/19 11:16 09/04/19 11:16 09/04/19 11:16 General: Alert, Oriented x3, Cooperative, No apparent distress HEENT: Atraumatic, Normocephalic Oral: Moist Mucosa Abdomen: Obese Extremities: Edema Skin: Ulcer/ Wound Wound Measurements and Assessment WC - Nurse 1 - General Ulcer Measurement Start: 09/04/19 11:15 Freq: Status: Active Protocol: Activity Type Activity Date Activity User E-Sign Co-Sign Detail Recorded Client Recorded Date Recorded By Document 09/04/19 11:16 MW [id number] 09/04/19 11:37 MW 09/04/19 11:16 Wound Center Nurse 1 [Ulcer Assessment] #12 Lateral Left Heel -Combined with other wound No -Current Size (cm) - Length 0.1 -Current Size (cm) - Width 0.1 -Current Size (cm) - Depth 0.1 -Total Square Cm 0.01 -Photo Taken No -Epithelialization Large 67-100% -Tunneling No -Undermining/Tunneling No -Circular Undermining No -Exudate Amt None Present -Wound Margin Flat & Intact -Granulation Amt None Present (0 %) -Granulation Quality N/A -Slough/Fibrin No -Necrosis Amt None Present (0 %) -Structure Exposed N/A -Texture (Uma-wound Skin Appearance) Assessed, Localized Edema -Moisture (Uma-wound Skin Appearance Assessed,Dry/ ) Scaly -Color (Uma-wound Skin Appearance) No Abnormality, Assessed -Temperature (Uma-wound Skin No Abnormality Appearance) (Pt Warm) -Tenderness on Palpation (Uma-wound Yes Skin Appearance) -Ulcer Cleansing SOAP AND WATER -Foul Odor after Cleansing No -Anesthetic Used 5% Lidocaine Gel #9 Lower Lumbar- Midline -Combined with other wound No -Current Size (cm) - Length 13.6 -Current Size (cm) - Width 3.5 -Current Size (cm) - Depth 0.4 -Total Square Cm 47.60 -Date of Last Picture (Recall this 09/04/19 field) -Photo Taken Yes -Epithelialization Small 1-33% -Tunneling No -Undermining/Tunneling No -Circular Undermining No -Exudate Amt Large -Exudate Type Yellow/Green -Wound Margin Distinct, Outline Attached -Granulation Amt Medium (34-66%) -Granulation Quality [place] -Slough/Fibrin Yes -Necrosis Amt Medium (34-66%) -Necrotic Tissue Type Adherent Slough -Structure Exposed N/A -Texture (Uma-wound Skin Appearance) Assessed, Scarring -Moisture (Uma-wound Skin Appearance No Abnormality, ) Assessed -Color (Uma-wound Skin Appearance) No Abnormality, Assessed -Temperature (Uma-wound Skin No Abnormality Appearance) (Pt Warm) -Tenderness on Palpation (Uma-wound Yes Skin Appearance) -Ulcer Cleansing SOAP AND WATER -Foul Odor after Cleansing No -Anesthetic Used 4% Lidocaine Solution [Edema Assessment] -Lower Limb Edema Present No WC - Nurse 2 - General Ulcer CM Notes Start: 09/04/19 11:15 Freq: Status: Active Protocol: Activity Type Activity Date Activity User E-Sign Co-Sign Detail Recorded Client Recorded Date Recorded By Document 09/04/19 11:47 DV [id number] 09/04/19 12:08 DV 09/04/19 11:47 Wound Center Nurse 2 [Procedure/Treatment] #12 Lateral Left Heel -Time 11:47 -Correct Patient Yes -Correct Side, Site, Position Yes -Correct Procedure No -Procedure Performed No -Post Debridement Size (cm) - Length 0.2 -Post Debridement Size (cm) - Width 0.1 -Post Debridement Size (cm) - Depth 0.1 -Total Square Cm 0.02 -Wound/Ulcer Outcome Not Healed #9 Lower Lumbar- Midline -Time 11:48 -Correct Patient Yes -Correct Side, Site, Position Yes -Correct Procedure Yes -Procedure Performed Yes -Type of Procedure Debridement -Clinical Debridement Subcutaneous -Post Debridement Size (cm) - Length 12.8 -Post Debridement Size (cm) - Width 3.8 -Post Debridement Size (cm) - Depth 0.4 -Total Square Cm 48.64 -Wound/Ulcer Outcome Not Healed -Ulcer Cleansing Rinsed/ Irrigated with Saline -Foul Odor after Cleansing No -Bioengineered Tissue No -Bleeding Controlled with Pressure -Offloading No -Treatment Response Procedure Tolerated Well [See Physician Procedure note for Specifics] Pain Scale: 0-10 Numeric [Pain] -Is Patient Pain Free? Yes Psych/Mental Status: Normal Affect, Appropriate Debridement Note Post-Debridement Measurements/Treatment WC - Nurse 2 - General Ulcer CM Notes Start: 09/04/19 11:15 Freq: Status: Active Protocol: Activity Type Activity Date Activity User E-Sign Co-Sign Detail Recorded Client Recorded Date Recorded By Document 09/04/19 11:47 DV [id number] 09/04/19 12:08 DV 09/04/19 11:47 Wound Center Nurse 2 #12 Lateral Left Heel -Time 11:47 -Correct Patient Yes -Correct Side, Site, Position Yes -Correct Procedure No -Procedure Performed No -Post Debridement Size (cm) - Length 0.2 -Post Debridement Size (cm) - Width 0.1 -Post Debridement Size (cm) - Depth 0.1 -Total Square Cm 0.02 -Wound/Ulcer Outcome Not Healed #9 Lower Lumbar- Midline -Time 11:48 -Correct Patient Yes -Correct Side, Site, Position Yes -Correct Procedure Yes -Procedure Performed Yes -Type of Procedure Debridement -Clinical Debridement Subcutaneous -Post Debridement Size (cm) - Length 12.8 -Post Debridement Size (cm) - Width 3.8 -Post Debridement Size (cm) - Depth 0.4 -Total Square Cm 48.64 -Wound/Ulcer Outcome Not Healed -Ulcer Cleansing Rinsed/ Irrigated with Saline -Foul Odor after Cleansing No -Bioengineered Tissue No -Bleeding Controlled with Pressure -Offloading No -Treatment Response Procedure Tolerated Well Pain Scale: 0-10 Numeric Is Patient Pain Free? Yes Wound debrided: lateral left heel Laterality: Left Type of Debridement: Selective debridement Anesthesia Used: 4% Lidocaine Solution Depth: Down to and including healthy tissue, in the subcutaneous layer Percentage of wound debrided: 100 Instrument Used: - - gauze Tissue Removed: yellow slough, devitalized tissue Severity: Fat Layer Exposed Amount of bleeding with debridement: Mild Bleeding Controlled with: Compression and gauze Patient tolerated procedure well - Additional Wound Wound debrided: lower lumbar surgical wound Laterality: Not Applicable Type of Debridement: Excisional debridement Anesthesia Used: 4% Lidocaine Solution Depth: Down to and including healthy tissue, in the subcutaneous layer, to muscle Percentage of wound debrided: 100 Instrument Used: 7mm curette Tissue Removed: yellow slough, devitalized tissue Severity: Fat Layer Exposed Amount of bleeding with debridement: Mild Bleeding Controlled with: Compression and gauze Patient tolerated procedure: Patient tolerated procedure well Assessment/Plan Active Problems (Last Reviewed 08/21/19 @ 10:[address] Micky Mauro MD) Non-healing surgical wound (Chronic) Open wound of lumbar region with complication (Chronic) h/o osteomyelitis and is chronic nonhealing surgical wound s/p lumbar decompression surgery Assessment: 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 malnutrition. other multiple comorbidities. edema bilateral lower extremities. venous insufficiency. immunocompromised status. Plan: Evaluated and debrided his wounds. There continues to be mild improvement in his wounds. Will continue to alternate dressings with Aquacel and acetic acid to his back wound. Will cover with KerraMaxCare and wound drape with changes once daily for heavy amount of drainage of his lumbar wound. His left heel will be treated with Guera for heavy drainage with changes daily. Continue increased protein intake. F/U in [address] Wick.
[2019-09-18 11:58] VITALS: BP 141/84; PULSE 88; RESP 18; TEMP 36.8; BMI 28.9
--- NOTE | 2019-09-18 17:53 | PCM.WC.PN ---
(1) Non-healing surgical wound Status: Chronic Current Visit: Yes Qualifiers: Encounter type: subsequent encounter Qualified Code(s): T81.89XD - Other complications of procedures, not elsewhere classified, subsequent encounter Code(s): T81.89XA - Other complications of procedures, not elsewhere classified, initial encounter (2) Open wound of lumbar region with complication Status: Chronic Current Visit: Yes Code(s): S31.000A - Unspecified open wound of lower back and pelvis without penetration into retroperitoneum, initial encounter Comment: h/o osteomyelitis and is chronic nonhealing surgical wound s/p lumbar decompression surgery Type of Wound Date of Service: 09/18/19 Chief Complaint: Nonhealing surgical wound of lower back History of Wound: Mr. Marshall is a 73-yo who has been seen here at the wound center for a nonhealing surgical wound of his lower back s/p surgical debridement for an abscess s/p lumbar spine surgery. His original surgery on his lower back was approximately 2016 and he has had multiple complications since that time. He underwent surgical debridement on 03/04/[address] Davila at [facility] in [place] and was discharged with a wound vac for healing by secondary intention with possible muscle flap closure in the future. He followed up with his surgeon on 04/18/17 for further evaluation and recommendations and they plan to close the wound with a muscle flap but he continues to develop infections. He is also being seen by Infectious Disease as needed. CT 02/2018 did not show any abscess. Progress of Wound: Cuong is here for follow-up of his nonhealing surgical wound of his lower back. His reports same amount of drainage as previous, drainage is still very heavy. His ulcer to his left lateral heel is draining a little less, but still has moderate drainage. He is tolerating Guera dressing. Denies pain or odor. He has been tolerating Aquacel alternating with acetic acid dressings to his back. Triamcinolone cream has helped with the irritation of the periwound area. He continues to have very heavy drainage from his lumbar surgical wound. He has had 10 applications of Purapply to his lower back wound with mild improvement which were completed 03/21/2018. Cuong saw the surgeon at [facility] on August 27, 2018 and he does not think a skin flap would be an option but talked about doing a skin graft from his thigh to the lower back. He has been having increased pain in his back and left leg presumably from nerve impingement. Denies increased drainage, fever or chills. - Physical Exam Vital Signs Temp Pulse Resp BP 98.3 F 88 18 141/84 H 09/18/19 11:58 09/18/19 11:58 09/18/19 11:58 09/18/19 11:58 General: Alert, Oriented x3, Cooperative, No apparent distress HEENT: Atraumatic, Normocephalic Oral: Moist Mucosa Extremities: Edema Skin: Ulcer/ Wound Wound Measurements and Assessment WC - Nurse 1 - General Ulcer Measurement Start: 09/04/19 11:15 Freq: Status: Active Protocol: Activity Type Activity Date Activity User E-Sign Co-Sign Detail Recorded Client Recorded Date Recorded By Document 09/18/19 11:58 PL [id number] 09/18/19 12:09 PL 09/18/19 11:58 Wound Center Nurse 1 [Ulcer Assessment] #12 Lateral Left Heel -Current Size (cm) - Length 0.2 -Current Size (cm) - Width 0.1 -Current Size (cm) - Depth 0.1 -Total Square Cm 0.02 -Photo Taken No -Epithelialization None Present -Tunneling No -Undermining/Tunneling No -Exudate Amt None Present -Granulation Amt Large (67-100%) -Granulation Quality [place] -Slough/Fibrin Yes -Necrosis Amt Small (1-33%) -Necrotic Tissue Type Adherent Slough -Temperature (Uma-wound Skin No Abnormality Appearance) (Pt Warm) -Ulcer Cleansing Rinsed/ Irrigated with Saline -Foul Odor after Cleansing No -Anesthetic Used 4% Lidocaine Solution #9 Lower Lumbar- Midline -Current Size (cm) - Length 14.0 -Current Size (cm) - Width 4.0 -Current Size (cm) - Depth 0.4 -Total Square Cm 56.00 -Photo Taken No -Epithelialization None Present -Tunneling No -Undermining/Tunneling No -Circular Undermining No -Exudate Amt Large -Exudate Type Serosanguineous -Granulation Amt Medium (34-66%) -Granulation Quality [place] -Slough/Fibrin No -Necrosis Amt Medium (34-66%) -Necrotic Tissue Type Adherent Slough -Texture (Uma-wound Skin Appearance) No Abnormality -Moisture (Uma-wound Skin Appearance No Abnormality ) -Color (Uma-wound Skin Appearance) No Abnormality -Temperature (Uma-wound Skin No Abnormality Appearance) (Pt Warm) -Tenderness on Palpation (Uma-wound No Skin Appearance) -Ulcer Cleansing Soap and water -Foul Odor after Cleansing No -Anesthetic Used 4% Lidocaine Solution ELIZABETH - Nurse 2 - General Ulcer CM Notes Start: 09/04/19 11:15 Freq: Status: Active Protocol: Activity Type Activity Date Activity User E-Sign Co-Sign Detail Recorded Client Recorded Date Recorded By Document 09/18/19 13:10 DV [id number] 09/18/19 13:20 DV 09/18/19 13:10 Wound Center Nurse 2 [Procedure/Treatment] #12 Lateral Left Heel -Time 13:13 -Correct Patient Yes -Correct Side, Site, Position Yes -Correct Procedure No -Procedure Performed No -Wound/Ulcer Outcome Not Healed -Ulcer Cleansing Rinsed/ Irrigated with Saline -Foul Odor after Cleansing No -Bioengineered Tissue No -Bleeding Controlled with Pressure -Offloading No -Treatment Response Procedure Tolerated Well #9 Lower Lumbar- Midline -Time 13:14 -Correct Patient Yes -Correct Side, Site, Position Yes -Correct Procedure Yes -Procedure Performed Yes -Type of Procedure Debridement -Clinical Debridement Subcutaneous -Post Debridement Size (cm) - Length 12.8 -Post Debridement Size (cm) - Width 3.8 -Post Debridement Size (cm) - Depth 0.4 -Total Square Cm 48.64 -Wound/Ulcer Outcome Not Healed -Ulcer Cleansing Rinsed/ Irrigated with Saline -Foul Odor after Cleansing No -Bioengineered Tissue No -Bleeding Controlled with Pressure -Offloading No -Treatment Response Procedure Tolerated Well [See Physician Procedure note for Specifics] Pain Scale: 0-10 Numeric [Pain] -Is Patient Pain Free? Yes Psych/Mental Status: Normal Affect, Appropriate Debridement Note Post-Debridement Measurements/Treatment ELIZABETH - Nurse 2 - General Ulcer CM Notes Start: 09/04/19 11:15 Freq: Status: Active Protocol: Activity Type Activity Date Activity User E-Sign Co-Sign Detail Recorded Client Recorded Date Recorded By Document 09/04/19 11:47 DV [id number] 09/04/19 12:08 DV Document 09/18/19 13:10 DV [id number] 09/18/19 13:20 DV 09/04/19 09/18/19 11:47 13:10 Wound Center Nurse 2 #12 Lateral Left Heel -Time 11:47 13:13 -Correct Patient Yes Yes -Correct Side, Site, Position Yes Yes -Correct Procedure No No -Procedure Performed No No -Post Debridement Size (cm) - Length 0.2 -Post Debridement Size (cm) - Width 0.1 -Post Debridement Size (cm) - Depth 0.1 -Total Square Cm 0.02 -Wound/Ulcer Outcome Not Healed Not Healed -Ulcer Cleansing Rinsed/ Irrigated with Saline -Foul Odor after Cleansing No -Bioengineered Tissue No -Bleeding Controlled with Pressure -Offloading No -Treatment Response Procedure Tolerated Well #9 Lower Lumbar- Midline -Time 11:48 13:14 -Correct Patient Yes Yes -Correct Side, Site, Position Yes Yes -Correct Procedure Yes Yes -Procedure Performed Yes Yes -Type of Procedure Debridement Debridement -Clinical Debridement Subcutaneous Subcutaneous -Post Debridement Size (cm) - Length 12.8 12.8 -Post Debridement Size (cm) - Width 3.8 3.8 -Post Debridement Size (cm) - Depth 0.4 0.4 -Total Square Cm 48.64 48.64 -Wound/Ulcer Outcome Not Healed Not Healed -Ulcer Cleansing Rinsed/ Rinsed/ Irrigated with Irrigated with Saline Saline -Foul Odor after Cleansing No No -Bioengineered Tissue No No -Bleeding Controlled with Pressure Pressure -Offloading No No -Treatment Response Procedure Procedure Tolerated Well Tolerated Well Pain Scale: 0-10 Numeric Is Patient Pain Free? Yes Yes Wound debrided: left heel Laterality: Left No debridement was completed today - no slough present - Additional Wound Wound debrided: lower lumbar midline Laterality: Not Applicable Type of Debridement: Excisional debridement Anesthesia Used: 4% Lidocaine Solution Depth: Down to and including healthy tissue, in the subcutaneous layer, to muscle Percentage of wound debrided: 100 Instrument Used: 7mm curette Tissue Removed: yellow slough, devitalized tissue Severity: Fat Layer Exposed Amount of bleeding with debridement: Mild Bleeding Controlled with: Compression and gauze Patient tolerated procedure: Patient tolerated procedure well Assessment/Plan Active Problems (Last Reviewed 08/21/19 @ 10:[address] Micky Mauro MD) Non-healing surgical wound (Chronic) Open wound of lumbar region with complication (Chronic) h/o osteomyelitis and is chronic nonhealing surgical wound s/p lumbar decompression surgery Assessment: 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 malnutrition. other multiple comorbidities. edema bilateral lower extremities. venous insufficiency. immunocompromised status. Plan: Evaluated and debrided his wounds. There continues to be mild improvement in his wounds. Will continue to alternate dressings with Aquacel and acetic acid to his back wound. Will cover with KerraMaxCare and wound drape with changes once daily for heavy amount of drainage of his lumbar wound. His left heel will be treated with Guera for heavy drainage with changes daily. Continue increased protein intake. F/U in [address] Wick.
[2019-10-02 11:42] VITALS: BP 137/73; PULSE 82; RESP 18; TEMP 36.4; BMI 28.9
--- NOTE | 2019-10-02 18:40 | PCM.WC.PN ---
(1) Non-healing surgical wound Status: Chronic Current Visit: Yes Qualifiers: Encounter type: subsequent encounter Qualified Code(s): T81.89XD - Other complications of procedures, not elsewhere classified, subsequent encounter Code(s): T81.89XA - Other complications of procedures, not elsewhere classified, initial encounter (2) Open wound of lumbar region with complication Status: Chronic Current Visit: Yes Code(s): S31.000A - Unspecified open wound of lower back and pelvis without penetration into retroperitoneum, initial encounter Comment: h/o osteomyelitis and is chronic nonhealing surgical wound s/p lumbar decompression surgery Type of Wound Date of Service: 10/02/19 Chief Complaint: Nonhealing surgical wound of lower back History of Wound: Mr. Marshall is a 73-yo who has been seen here at the wound center for a nonhealing surgical wound of his lower back s/p surgical debridement for an abscess s/p lumbar spine surgery. His original surgery on his lower back was approximately 2016 and he has had multiple complications since that time. He underwent surgical debridement on 03/04/[address] Davila at [facility] in [place] and was discharged with a wound vac for healing by secondary intention with possible muscle flap closure in the future. He followed up with his surgeon on 04/18/17 for further evaluation and recommendations and they plan to close the wound with a muscle flap but he continues to develop infections. He is also being seen by Infectious Disease as needed. CT 02/2018 did not show any abscess. Progress of Wound: Cuong is here for follow-up of his nonhealing surgical wound of his lower back. His reports same amount of drainage as previous, drainage is still very heavy. There is an odor the last 2 days per his . His ulcer to his left lateral heel is draining a little less, but still has moderate drainage. He is tolerating Guera dressing. Denies pain or odor. He has been tolerating Aquacel alternating with acetic acid dressings to his back. Triamcinolone cream has helped with the irritation of the periwound area. He continues to have very heavy drainage from his lumbar surgical wound. He has had 10 applications of Purapply to his lower back wound with mild improvement which were completed 03/21/2018. Cuong saw the surgeon at [facility] on August 27, 2018 and he does not think a skin flap would be an option but talked about doing a skin graft from his thigh to the lower back. He has been having increased pain in his back and left leg presumably from nerve impingement. Denies increased drainage, fever or chills. - Physical Exam Vital Signs Temp Pulse Resp BP 97.6 F L 82 18 137/73 H 10/02/19 11:42 10/02/19 11:42 10/02/19 11:42 10/02/19 11:42 General: Alert, Oriented x3, Cooperative, No apparent distress HEENT: Atraumatic, Normocephalic Oral: Moist Mucosa Abdomen: Obese Extremities: Edema Skin: Ulcer/ Wound Wound Measurements and Assessment WC - Nurse 1 - General Ulcer Measurement Start: 09/04/19 11:15 Freq: Status: Active Protocol: Activity Type Activity Date Activity User E-Sign Co-Sign Detail Recorded Client Recorded Date Recorded By Document 10/02/19 11:42 RB [id number] 10/02/19 11:43 RB 10/02/19 11:42 Wound Center Nurse 1 [Ulcer Assessment] #9 Lower Lumbar- Midline -Combined with other wound No -Current Size (cm) - Length 13 -Current Size (cm) - Width 4.5 -Current Size (cm) - Depth 0.3 -Total Square Cm 58.5 -Photo Taken Yes -Tunneling No -Undermining/Tunneling No -Circular Undermining No -Exudate Amt Large -Exudate Type Serosanguineous -Wound Margin Thickened & Rolled Under -Granulation Amt Medium (34-66%) -Granulation Quality [place] -Slough/Fibrin Yes -Necrosis Amt Medium (34-66%) -Necrotic Tissue Type Adherent Slough -Structure Exposed N/A -Texture (Uma-wound Skin Appearance) Scarring -Moisture (Uma-wound Skin Appearance Maceration ) -Color (Uma-wound Skin Appearance) Assessed -Temperature (Uma-wound Skin No Abnormality Appearance) (Pt Warm) -Tenderness on Palpation (Uma-wound No Skin Appearance) -Ulcer Cleansing Wound Cleanser -Foul Odor after Cleansing Yes -Anesthetic Used 4% Lidocaine Solution WC - Nurse 2 - General Ulcer CM Notes Start: 09/04/19 11:15 Freq: Status: Active Protocol: Activity Type Activity Date Activity User E-Sign Co-Sign Detail Recorded Client Recorded Date Recorded By Document 10/02/19 11:45 DV [id number] 10/02/19 12:01 DV 10/02/19 11:45 Wound Center Nurse 2 [Procedure/Treatment] #12 Lateral Left Heel -Time 11:50 -Correct Patient Yes -Correct Side, Site, Position Yes -Correct Procedure No -Procedure Performed No -Wound/Ulcer Outcome Not Healed #9 Lower Lumbar- Midline -Time 11:50 -Correct Patient Yes -Correct Side, Site, Position Yes -Correct Procedure Yes -Procedure Performed Yes -Type of Procedure Debridement -Clinical Debridement Subcutaneous -Post Debridement Size (cm) - Length 13.6 -Post Debridement Size (cm) - Width 3.6 -Post Debridement Size (cm) - Depth 0.4 -Total Square Cm 48.96 [See Physician Procedure note for Specifics] Pain Scale: 0-10 Numeric [Pain] -Is Patient Pain Free? Yes Psych/Mental Status: Normal Affect, Appropriate Debridement Note Post-Debridement Measurements/Treatment WC - Nurse 2 - General Ulcer CM Notes Start: 09/04/19 11:15 Freq: Status: Active Protocol: Activity Type Activity Date Activity User E-Sign Co-Sign Detail Recorded Client Recorded Date Recorded By Document 09/04/19 11:47 DV [id number] 09/04/19 12:08 DV Document 09/18/19 13:10 DV [id number] 09/18/19 13:20 DV Document 10/02/19 11:45 DV [id number] 10/02/19 12:01 DV 09/04/19 09/18/19 10/02/19 11:47 13:10 11:45 Wound Center Nurse 2 #12 Lateral Left Heel -Time 11:47 13:13 11:50 -Correct Patient Yes Yes Yes -Correct Side, Site, Position Yes Yes Yes -Correct Procedure No No No -Procedure Performed No No No -Post Debridement Size (cm) - Length 0.2 -Post Debridement Size (cm) - Width 0.1 -Post Debridement Size (cm) - Depth 0.1 -Total Square Cm 0.02 -Wound/Ulcer Outcome Not Healed Not Healed Not Healed -Ulcer Cleansing Rinsed/ Irrigated with Saline -Foul Odor after Cleansing No -Bioengineered Tissue No -Bleeding Controlled with Pressure -Offloading No -Treatment Response Procedure Tolerated Well #9 Lower Lumbar- Midline -Time 11:48 13:14 11:50 -Correct Patient Yes Yes Yes -Correct Side, Site, Position Yes Yes Yes -Correct Procedure Yes Yes Yes -Procedure Performed Yes Yes Yes -Type of Procedure Debridement Debridement Debridement -Clinical Debridement Subcutaneous Subcutaneous Subcutaneous -Post Debridement Size (cm) - Length 12.8 12.8 13.6 -Post Debridement Size (cm) - Width 3.8 3.8 3.6 -Post Debridement Size (cm) - Depth 0.4 0.4 0.4 -Total Square Cm 48.64 48.64 48.96 -Wound/Ulcer Outcome Not Healed Not Healed -Ulcer Cleansing Rinsed/ Rinsed/ Irrigated with Irrigated with Saline Saline -Foul Odor after Cleansing No No -Bioengineered Tissue No No -Bleeding Controlled with Pressure Pressure -Offloading No No -Treatment Response Procedure Procedure Tolerated Well Tolerated Well Pain Scale: 0-10 Numeric Is Patient Pain Free? Yes Yes Yes Wound debrided: lateral left heel Laterality: Left No debridement was completed today - patient deferred treatment of the heel today - Additional Wound Wound debrided: lower lumbar midline Laterality: Not Applicable Type of Debridement: Excisional debridement Anesthesia Used: 4% Lidocaine Solution, 5% Lidocaine Gel Depth: Down to and including healthy tissue, in the subcutaneous layer, to muscle Percentage of wound debrided: 100 Instrument Used: 5mm curette Tissue Removed: Yellow slough, devitalized tissue Severity: Fat Layer Exposed Amount of bleeding with debridement: Moderate Bleeding Controlled with: Compression and gauze, Gel Foam Patient tolerated procedure: Patient tolerated procedure well Assessment/Plan Active Problems (Last Reviewed 08/21/19 @ 10:[address] Micky Mauro MD) Non-healing surgical wound (Chronic) Open wound of lumbar region with complication (Chronic) h/o osteomyelitis and is chronic nonhealing surgical wound s/p lumbar decompression surgery Assessment: 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 malnutrition. other multiple comorbidities. edema bilateral lower extremities. venous insufficiency. immunocompromised status. Plan: Evaluated and debrided his lumbar wound. There continues to be mild improvement in his wounds. Will continue to alternate dressings with Aquacel and acetic acid to his back wound. No significant erythema or odor appreciated on exam after dressings were removed. If odor persists they were instructed to contact center/provider for antibiotic treatment. Will cover with KerraMaxCare or ABDs and wound drape with changes once daily for heavy amount of drainage of his lumbar wound. His left heel will continue to be treated with Guera for heavy drainage with changes daily. Continue increased protein intake. F/U in [address] Wick.
== END 2019-10-04 23:59 ==
LOC: WC 11:00
PROVIDERS: Family Provider Family Medicine; PCP Family Medicine; Referring Provider Family Medicine; Visit Provider Family Medicine
DX: T81.31XA Disruption of external operation (surgical) wound, not elsewhere classified, initial encounter (principal); S31.000A Unspecified open wound of lower back and pelvis without penetration into retroperitoneum, initial encounter; Y83.8 Other surgical procedures as the cause of abnormal reaction of the patient, or of later complication, without mention of misadventure at the time of the procedure; I87.2 Venous insufficiency (chronic) (peripheral); R60.0 Localized edema
CPT/HCPCS: 11042; 11045

== ENCOUNTER → 2019-10-19 13:21 | Outpatient (CLI) | payer MEDICARE, OTHER, SELFPAY ==
[2015-10-31 10:00] VITALS: BMI 34.9
[2019-10-16 11:40] VITALS: BMI 28.9
[2019-10-19 15:24] LABS: Absolute Lymphocyte Count 1.18 X10^3/uL (0.83-4.51); Absolute Neutrophil Count 3.4 X10^3/uL (2.0-7.7); Basophil# 0.04 X10^3/uL; Basophil% 0.7 % (0-1); Eosinophil# 0.39 X10^3/uL; Eosinophils% 6.5 % (0-5); Hematocrit 31.9 % (40-54); Hemoglobin 10.4 g/dL (13.0-16.5); Lymphocyte # 1.18 X10^3/ul (4.0); Lymphocyte % 19.6 % (19-41); Mean Corp Hgb Conc 32.6 g/dL (32-36); Mean Corpuscular Hgb 35.6 pg (27.0-32.0); Mean Corpuscular Volume 109.2 fL (80-94); Mean Platelet Vol. 10.9 fl (6.2-12.0); Monocyte% 16.6 % (0-10); NRBC Flagged by Analyzer 0.3 % (0-5); Neutrophil # 3.39 X10^3/uL (2.7-7.7); Neutrophil % 56.4 % (47-70); POSITIVE MORPHOLOGY YES; Platelet Count 218 K/mm3 (150-450); RBC Distribution Width CV 16.8 % (11.6-14.6); RBC Distribution Width SD 66.8 fl (35.1-43.9); Red Blood Count 2.92 M/mm3 (4.6-6.2)
[2019-10-19 15:35] LABS: ALB/GLOB Ratio 0.4 RATIO (0.9-2.4); AST(SGOT) 24 U/L (15-37); Alanine Aminotransfer ALT/SGPT 15 U/L (16-61); Albumin, Serum 2.5 g/dL (3.2-5.0); Alkaline Phosphatase 118 U/L (45-117); Anion Gap 9 (5-15); BUN 44 mg/dL (7-18); BUN/Creat Ratio 24.7 RATIO (10-20); Calcium,Total 8.2 mg/dL (8.5-10.1); Chloride 99 mmol/L (98-107); Creatinine, Serum 1.78 mg/dL (0.70-1.30); EST Glomerular Filtration Rate 40 mL/min (>60); Est Glom Filt Rate - Afr Amer 48 mL/min (>60); Globulin 5.9 g/dL (2.2-4.2); Glucose 109 mg/dL (74-106); Protein, Total 8.4 g/dL (6.4-8.2); Sodium Level 135 mmol/L (136-145)
[2019-10-19 16:07] LABS: Differential Indicated SCAN CRITERIA MET
[2019-10-19 18:58] LABS: Anisocytosis 1+; Platelet Estimate ADEQUATE (ADEQ); Red Cell Morphology N CHROM NORMAL (NORM C&C)
== END ==
PROVIDERS: PCP Family Medicine; Visit Provider Family Medicine
DX: D64.9 Anemia, unspecified (principal); K74.60 Unspecified cirrhosis of liver; Z51.81 Encounter for therapeutic drug level monitoring
CPT/HCPCS: 36415; 80053; 85025

== ENCOUNTER 2019-10-30 11:00 | Outpatient (RCR) | payer MEDICARE, OTHER, SELFPAY ==
[2015-10-31 10:00] VITALS: BMI 34.9
[2019-10-05 00:20] VITALS: BP 137/73; PULSE 82; RESP 18; TEMP 36.4
[2019-10-16 11:40] VITALS: BP 148/75; PULSE 83; RESP 18; TEMP 36.6; BMI 28.9
--- NOTE | 2019-10-16 18:26 | PN.PCM_ITS ---
(1) Non-healing surgical wound Status: Chronic Qualifiers: Encounter type: subsequent encounter Code(s): T81.89XA - Other complications of procedures, not elsewhere classified, initial encounter (2) Open wound of lumbar region with complication Status: Chronic Code(s): S31.000A - Unspecified open wound of lower back and pelvis without penetration into retroperitoneum, initial encounter Comment: h/o osteomyelitis and is chronic nonhealing surgical wound s/p lumbar decompression surgery Type of Wound Date of Service: 10/16/19 Chief Complaint: Nonhealing surgical wound of lower back History of Wound: Mr. Marshall is a 73-yo who has been seen here at the wound center for a nonhealing surgical wound of his lower back s/p surgical debridement for an abscess s/p lumbar spine surgery. His original surgery on his lower back was approximately 2015 and he has had multiple complications since that time. He underwent surgical debridement on 03/04/[address] Davila at [facility] in [place] and was discharged with a wound vac for healing by secondary intention with possible muscle flap closure in the future. He followed up with his surgeon on 04/18/17 for further evaluation and recommendations and they plan to close the wound with a muscle flap but he continues to develop infections. He is also being seen by Infectious Disease as needed. CT 02/2018 did not show any abscess. Progress of Wound: Cuong is here for follow-up of his nonhealing surgical wound of his lower back. His reports same amount of drainage as previous, drainage is still very heavy. There is an odor the last 2 days per his . His ulcer to his left lateral heel is draining a little less, but still has moderate drainage. He is tolerating Guera dressing. Denies pain or odor. He has been tolerating Aquacel alternating with acetic acid dressings to his back. Triamcinolone cream has helped with the irritation of the periwound area. He continues to have very heavy drainage from his lumbar surgical wound. He has had 10 applications of Purapply to his lower back wound with mild improvement which were completed 03/21/2018. Cuong saw the surgeon at [facility] on August 27, 2018 and he does not think a skin flap would be an option but talked about doing a skin graft from his thigh to the lower back. He has been having increased pain in his back and left leg presumably from nerve impingement. Denies increased drainage, fever or chills. - Physical Exam Vital Signs Temp Pulse Resp BP 97.8 F 83 18 148/75 H 10/16/19 11:40 10/16/19 11:40 10/16/19 11:40 10/16/19 11:40 General: Alert, Oriented x3, Cooperative, No apparent distress HEENT: Atraumatic, Normocephalic Oral: Moist Mucosa Skin: Ulcer/ Wound Wound Measurements and Assessment WC - Nurse 1 - General Ulcer Measurement Start: 10/16/19 11:40 Freq: Status: Active Protocol: Activity Type Activity Date Activity User E-Sign Co-Sign Detail Recorded Client Recorded Date Recorded By Document 10/16/19 11:40 MW [id number] 10/16/19 11:42 MW 10/16/19 11:40 Wound Center Nurse 1 [Ulcer Assessment] #9 Lower Lumbar- Midline -Combined with other wound No -Current Size (cm) - Length 13.3 -Current Size (cm) - Width 3.8 -Current Size (cm) - Depth 0.4 -Total Square Cm 50.54 -Photo Taken No -Epithelialization None Present -Tunneling No -Undermining/Tunneling No -Circular Undermining No -Exudate Amt Large -Exudate Type Serosanguineous -Wound Margin Thickened & Rolled Under -Granulation Amt Medium (34-66%) -Granulation Quality [place] -Slough/Fibrin Yes -Necrosis Amt Medium (34-66%) -Necrotic Tissue Type Adherent Slough -Structure Exposed N/A -Texture (Uma-wound Skin Appearance) Assessed, Scarring -Moisture (Uma-wound Skin Appearance Assessed, ) Maceration -Color (Uma-wound Skin Appearance) No Abnormality, Assessed -Temperature (Uma-wound Skin No Abnormality Appearance) (Pt Warm) -Tenderness on Palpation (Uma-wound Yes Skin Appearance) -Ulcer Cleansing soap and water -Foul Odor after Cleansing No -Anesthetic Used 4% Lidocaine Solution [Edema Assessment] -Lower Limb Edema Present No Psych/Mental Status: Normal Affect, Appropriate Debridement Note post-debridement measurements width 3.0 cm length 12.8 cm depth 0.4 cm Wound debrided: lower lumbar wound Laterality: Not Applicable Type of Debridement: Excisional debridement Anesthesia Used: 4% Lidocaine Solution Depth: Down to and including healthy tissue, in the subcutaneous layer Percentage of wound debrided: 100 Instrument Used: 7mm curette Tissue Removed: yellow slough, devitalized tissue Severity: Fat Layer Exposed Amount of bleeding with debridement: Mild Bleeding Controlled with: Compression and gauze Patient tolerated procedure well Assessment/Plan Active Problems (Last Reviewed 08/21/19 @ 10:[address] Micky Mauro MD) Non-healing surgical wound (Chronic) Open wound of lumbar region with complication (Chronic) h/o osteomyelitis and is chronic nonhealing surgical wound s/p lumbar decompression surgery Assessment: 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 malnutrition. other multiple comorbidities. edema bilateral lower extremities. venous insufficiency. immunocompromised status. Plan: Evaluated and debrided his lumbar wound. There continues to be mild improvement in his wounds. Wound culture taken today and will treat based on results. Will continue to alternate dressings with Aquacel and acetic acid to his back wound. No significant erythema or odor appreciated on exam after dressings were removed. If odor persists they were instructed to contact center/provider for antibiotic treatment. Will cover with KerraMaxCare or ABDs and wound drape with changes once daily for heavy amount of drainage of his lumbar wound. Continue increased protein intake. F/U in [address] Wick.
[2019-10-30 12:04] VITALS: BP 130/64; PULSE 86; RESP 16; TEMP 37.1; BMI 28.9
--- NOTE | 2019-10-30 18:02 | PCM.WC.PN ---
(1) Non-healing surgical wound Status: Chronic Qualifiers: Encounter type: subsequent encounter Code(s): T81.89XA - Other complications of procedures, not elsewhere classified, initial encounter (2) Open wound of lumbar region with complication Status: Chronic Code(s): S31.000A - Unspecified open wound of lower back and pelvis without penetration into retroperitoneum, initial encounter Comment: h/o osteomyelitis and is chronic nonhealing surgical wound s/p lumbar decompression surgery Type of Wound Date of Service: 10/30/19 Chief Complaint: Nonhealing surgical wound of lower back History of Wound: Mr. Marshall is a 73-yo who has been seen here at the wound center for a nonhealing surgical wound of his lower back s/p surgical debridement for an abscess s/p lumbar spine surgery. His original surgery on his lower back was approximately 2015 and he has had multiple complications since that time. He underwent surgical debridement on 03/04/[address] Davila at [facility] in [place] and was discharged with a wound vac for healing by secondary intention with possible muscle flap closure in the future. He followed up with his surgeon on 04/18/17 for further evaluation and recommendations and they plan to close the wound with a muscle flap but he continues to develop infections. He is also being seen by Infectious Disease as needed. CT 02/2018 did not show any abscess. Progress of Wound: Cuong is here for follow-up of his nonhealing surgical wound of his lower back. His reports same amount of drainage as previous, drainage is still very heavy. He has been tolerating Aquacel alternating with acetic acid dressings to his back. Triamcinolone cream has helped with the irritation of the periwound area. He continues to have very heavy drainage from his lumbar surgical wound. He has had 10 applications of Purapply to his lower back wound with mild improvement which were completed 03/21/2018. Cuong saw the surgeon at [facility] on August 27, 2018 and he does not think a skin flap would be an option but talked about doing a skin graft from his thigh to the lower back. He has been having increased pain in his back and left leg presumably from nerve impingement. Denies increased drainage, fever or chills. - Physical Exam Vital Signs Temp Pulse Resp BP 98.7 F 86 16 130/64 H 10/30/19 12:04 10/30/19 12:04 10/30/19 12:04 10/30/19 12:04 General: Alert, Oriented x3, Cooperative, No apparent distress HEENT: Atraumatic, Normocephalic Oral: Moist Mucosa Skin: Ulcer/ Wound Wound Measurements and Assessment WC - Nurse 1 - General Ulcer Measurement Start: 10/16/19 11:40 Freq: Status: Active Protocol: Activity Type Activity Date Activity User E-Sign Co-Sign Detail Recorded Client Recorded Date Recorded By Document 10/30/19 12:04 RENITA [id number] 10/30/19 12:08 RENITA 10/30/19 12:04 Wound Center Nurse 1 [Ulcer Assessment] #9 Lower Lumbar- Midline -Combined with other wound No -Current Size (cm) - Length 13.2 -Current Size (cm) - Width 4.4 -Current Size (cm) - Depth 0.1 -Total Square Cm 58.08 -Photo Taken No -Epithelialization Small 1-33% -Tunneling No -Undermining/Tunneling No -Circular Undermining No -Exudate Amt Large -Exudate Type Serosanguineous -Wound Margin Flat & Intact -Granulation Amt Small (1-33%) -Granulation Quality Pale,[place] -Slough/Fibrin Yes -Necrosis Amt Large (67-100%) -Necrotic Tissue Type Adherent Slough -Structure Exposed N/A -Texture (Uma-wound Skin Appearance) Assessed, Scarring -Moisture (Uma-wound Skin Appearance Assessed,Dry/ ) Scaly -Color (Uma-wound Skin Appearance) Assessed -Temperature (Uma-wound Skin No Abnormality Appearance) (Pt Warm) -Ulcer Cleansing Rinsed/ Irrigated with Saline -Foul Odor after Cleansing No -Anesthetic Used 4% Lidocaine Solution [Edema Assessment] -Lower Limb Edema Present NA WC - Nurse 2 - General Ulcer CM Notes Start: 10/16/19 11:40 Freq: Status: Active Protocol: Activity Type Activity Date Activity User E-Sign Co-Sign Detail Recorded Client Recorded Date Recorded By Document 10/30/19 12:23 VANI [id number] 10/30/19 12:34 VANI 10/30/19 12:23 Wound Center Nurse 2 [Procedure/Treatment] #9 Lower Lumbar- Midline -Time 12:25 -Correct Patient Yes -Correct Side, Site, Position Yes -Correct Procedure Yes -Procedure Performed Yes -Type of Procedure Debridement -Clinical Debridement Subcutaneous -Post Debridement Size (cm) - Length 12.8 -Post Debridement Size (cm) - Width 3.5 -Post Debridement Size (cm) - Depth 0.4 -Total Square Cm 44.80 -Wound/Ulcer Outcome Not Healed -Ulcer Cleansing Rinsed/ Irrigated with Saline -Foul Odor after Cleansing No -Bioengineered Tissue No -Bleeding Controlled with Pressure -Offloading No -Treatment Response Procedure Tolerated Well [See Physician Procedure note for Specifics] Pain Scale: 0-10 Numeric [Pain] -Is Patient Pain Free? Yes Psych/Mental Status: Normal Affect, Appropriate Debridement Note Post-Debridement Measurements/Treatment WC - Nurse 2 - General Ulcer CM Notes Start: 10/16/19 11:40 Freq: Status: Active Protocol: Activity Type Activity Date Activity User E-Sign Co-Sign Detail Recorded Client Recorded Date Recorded By Document 10/30/19 12:23 DV [id number] 10/30/19 12:34 DV 10/30/19 12:23 Wound Center Nurse 2 #9 Lower Lumbar- Midline -Time 12:25 -Correct Patient Yes -Correct Side, Site, Position Yes -Correct Procedure Yes -Procedure Performed Yes -Type of Procedure Debridement -Clinical Debridement Subcutaneous -Post Debridement Size (cm) - Length 12.8 -Post Debridement Size (cm) - Width 3.5 -Post Debridement Size (cm) - Depth 0.4 -Total Square Cm 44.80 -Wound/Ulcer Outcome Not Healed -Ulcer Cleansing Rinsed/ Irrigated with Saline -Foul Odor after Cleansing No -Bioengineered Tissue No -Bleeding Controlled with Pressure -Offloading No -Treatment Response Procedure Tolerated Well Pain Scale: 0-10 Numeric Is Patient Pain Free? Yes Wound debrided: lower lumbar midline Laterality: Not Applicable Type of Debridement: Excisional debridement Anesthesia Used: 4% Lidocaine Solution Depth: Down to and including healthy tissue, in the subcutaneous layer Percentage of wound debrided: 100 Instrument Used: 7mm curette Tissue Removed: yellow slough, devitalized tissue Severity: Fat Layer Exposed Amount of bleeding with debridement: Mild Bleeding Controlled with: Compression and gauze Patient tolerated procedure well Assessment/Plan Active Problems (Last Reviewed 08/21/19 @ 10:[address] Micky Mauro MD) Non-healing surgical wound (Chronic) Open wound of lumbar region with complication (Chronic) h/o osteomyelitis and is chronic nonhealing surgical wound s/p lumbar decompression surgery Assessment: 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 malnutrition. other multiple comorbidities. edema bilateral lower extremities. venous insufficiency. immunocompromised status. Plan: Evaluated and debrided his lumbar wound. There continues to be mild improvement in his wounds. Will continue to alternate dressings with Aquacel and acetic acid to his back wound. No significant erythema or odor appreciated on exam after dressings were removed. If odor persists they were instructed to contact center/provider for antibiotic treatment. Will cover with KerraMaxCare or ABDs and wound drape with changes once daily for heavy amount of drainage of his lumbar wound. His left heel will continue to be treated with Geura for heavy drainage with changes daily. Continue increased protein intake. F/U in [address] Wick.
== END 2019-11-03 23:59 ==
LOC: WC 11:00
PROVIDERS: Family Provider Family Medicine; PCP Family Medicine; Referring Provider Family Medicine; Visit Provider Family Medicine
DX: T81.31XA Disruption of external operation (surgical) wound, not elsewhere classified, initial encounter (principal); Y83.8 Other surgical procedures as the cause of abnormal reaction of the patient, or of later complication, without mention of misadventure at the time of the procedure; I87.2 Venous insufficiency (chronic) (peripheral); R60.0 Localized edema
CPT/HCPCS: 11042; 11045; 87070; 87075; 87077; 87186; 87205

== ENCOUNTER 2019-11-27 13:30 | Outpatient (RCR) | payer MEDICARE, OTHER, SELFPAY ==
[2015-10-31 10:00] VITALS: BMI 34.9
[2019-11-04 00:20] VITALS: BP 130/64; PULSE 86; RESP 16; TEMP 37.1
[2019-11-13 13:48] VITALS: BP 139/86; PULSE 83; RESP 18; TEMP 36.6; BMI 28.9
[2019-11-27 13:46] VITALS: BP 128/67; PULSE 82; RESP 20; TEMP 37.5; BMI 28.9
--- NOTE | 2019-11-27 16:35 | PN.PCM_ITS ---
(1) Non-healing surgical wound Status: Chronic Current Visit: Yes Qualifiers: Encounter type: subsequent encounter Code(s): T81.89XA - Other complications of procedures, not elsewhere classified, initial encounter (2) Open wound of lumbar region with complication Status: Chronic Current Visit: Yes Code(s): S31.000A - Unspecified open wound of lower back and pelvis without penetration into retroperitoneum, initial encounter Comment: h/o osteomyelitis and is chronic nonhealing surgical wound s/p lumbar decompression surgery Type of Wound Date of Service: 11/27/19 Chief Complaint: Nonhealing surgical wound of lower back History of Wound: Mr. Marshall is a 73-yo who has been seen here at the wound center for a nonhealing surgical wound of his lower back s/p surgical debridement for an abscess s/p lumbar spine surgery. His original surgery on his lower back was approximately 2015 and he has had multiple complications since that time. He underwent surgical debridement on 03/04/[address] Davila at [facility] in [place] and was discharged with a wound vac for healing by secondary intention with possible muscle flap closure in the future. He followed up with his surgeon on 04/18/17 for further evaluation and recommendations and they plan to close the wound with a muscle flap but he continues to develop infections. He is also being seen by Infectious Disease as needed. CT 02/2018 did not show any abscess. Progress of Wound: Cuong is here for follow-up of his nonhealing surgical wound of his lower back. His reports same amount of drainage as previous, drainage is very heavy. Denies pain or odor. He has been tolerating Aquacel alternating with acetic acid dressings to his back. Triamcinolone cream has helped with the irritation of the periwound area. He continues to have very heavy drainage from his lumbar surgical wound. He has had 10 applications of Purapply to his lower back wound with mild improvement which were completed 03/21/2018. Cuong saw the surgeon at [facility] on August 27, 2018 and he does not think a skin flap would be an option but talked about doing a skin graft from his thigh to the lower back. He has been having increased pain in his back and left leg presumably from nerve impingement. Denies increased drainage, fever or chills. - Physical Exam Vital Signs Temp Pulse Resp BP 99.5 F H 82 20 H 128/67 H 11/27/19 13:46 11/27/19 13:46 11/27/19 13:46 11/27/19 13:46 General: Alert, Oriented x3, Cooperative, No apparent distress HEENT: Atraumatic, Normocephalic Oral: Moist Mucosa Extremities: Edema Skin: Ulcer/ Wound Wound Measurements and Assessment - Nurse 1 - General Ulcer Measurement Start: 11/13/19 13:48 Freq: Status: Active Protocol: Activity Type Activity Date Activity User E-Sign Co-Sign Detail Recorded Client Recorded Date Recorded By Document 11/27/19 13:46 DL [id number] 11/27/19 13:51 DL 11/27/19 13:46 Wound Center Nurse 1 [Ulcer Assessment] #9 Lower Lumbar- Midline -Current Size (cm) - Length 12.5 -Current Size (cm) - Width 4 -Current Size (cm) - Depth 0.2 -Total Square Cm 50.0 -Photo Taken No -Exudate Amt Medium -Exudate Type Serosanguineous -Wound Margin Thickened & Rolled Under -Granulation Amt Medium (34-66%) -Granulation Quality Red -Necrosis Amt Medium (34-66%) -Necrotic Tissue Type Adherent Slough -Structure Exposed N/A -Texture (Uma-wound Skin Appearance) Scarring -Moisture (Uma-wound Skin Appearance No Abnormality ) -Color (Uma-wound Skin Appearance) No Abnormality -Temperature (Uma-wound Skin No Abnormality Appearance) (Pt Warm) -Tenderness on Palpation (Uma-wound No Skin Appearance) -Ulcer Cleansing Wound Cleanser -Foul Odor after Cleansing No -Anesthetic Used 4% Lidocaine Solution - Nurse 2 - General Ulcer CM Notes Start: 11/13/19 13:48 Freq: Status: Active Protocol: Activity Type Activity Date Activity User E-Sign Co-Sign Detail Recorded Client Recorded Date Recorded By Document 11/27/19 13:58 DV [id number] 11/27/19 14:10 DV 11/27/19 13:58 Wound Center Nurse 2 [Procedure/Treatment] -Time 13:58 -Correct Patient Yes -Correct Side, Site, Position Yes -Correct Procedure Yes -Procedure Performed Yes -Type of Procedure Debridement -Clinical Debridement Subcutaneous -Post Debridement Size (cm) - Length 12.8 -Post Debridement Size (cm) - Width 3.5 -Post Debridement Size (cm) - Depth 0.4 -Total Square (cm) 44.80 -Wound/Ulcer Outcome Not Healed -Ulcer Cleansing Rinsed/ Irrigated with Saline -Foul Odor after Cleansing No -Bioengineered Tissue No -Bleeding Controlled with Pressure -Offloading No -Treatment Response Procedure Tolerated Well [See Physician Procedure note for Specifics] Pain Scale: 0-10 Numeric [Pain] -Is Patient Pain Free? Yes Psych/Mental Status: Normal Affect, Appropriate Debridement Note Post-Debridement Measurements/Treatment WC - Nurse 2 - General Ulcer CM Notes Start: 11/13/19 13:48 Freq: Status: Active Protocol: Activity Type Activity Date Activity User E-Sign Co-Sign Detail Recorded Client Recorded Date Recorded By Document 11/13/19 13:59 DV [id number] 11/13/19 14:22 DV Document 11/27/19 13:58 DV [id number] 11/27/19 14:10 DV 11/13/19 11/27/19 13:59 13:58 Wound Center Nurse 2 #9 Lower Lumbar- Midline -Time 14:01 13:58 -Correct Patient Yes Yes -Correct Side, Site, Position Yes Yes -Correct Procedure Yes Yes -Procedure Performed Yes Yes -Type of Procedure Debridement Debridement -Clinical Debridement Subcutaneous Subcutaneous -Post Debridement Size (cm) - Length 12.7 12.8 -Post Debridement Size (cm) - Width 3.5 3.5 -Post Debridement Size (cm) - Depth 0.4 0.4 -Total Square (cm) 44.45 44.80 -Wound/Ulcer Outcome Not Healed Not Healed -Ulcer Cleansing Rinsed/ Rinsed/ Irrigated with Irrigated with Saline Saline -Foul Odor after Cleansing No No -Bioengineered Tissue No No -Bleeding Controlled with Pressure Pressure -Offloading No -Treatment Response Procedure Procedure Tolerated Well Tolerated Well Pain Scale: 0-10 Numeric Is Patient Pain Free? Yes Yes Wound debrided: lower lumbar midline Laterality: Not Applicable Type of Debridement: Excisional debridement Anesthesia Used: 4% Lidocaine Solution Depth: Down to and including healthy tissue, in the subcutaneous layer, to muscle Percentage of wound debrided: 100 Instrument Used: 5mm curette Tissue Removed: Yellow slough, devitalized tissue Severity: Fat Layer Exposed Amount of bleeding with debridement: Mild Bleeding Controlled with: Compression and gauze Patient tolerated procedure well Assessment/Plan Active Problems (Last Reviewed 08/21/19 @ 10:[address] Micky Mauro MD) Non-healing surgical wound (Chronic) Open wound of lumbar region with complication (Chronic) h/o osteomyelitis and is chronic nonhealing surgical wound s/p lumbar decompression surgery Assessment: 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 malnutrition. other multiple comorbidities. edema bilateral lower extremities. venous insufficiency. immunocompromised status. Plan: Evaluated and debrided his lumbar wound. There continues to be mild improvement in his wound. Will continue to alternate dressings with Aquacel and acetic acid to his back wound. No significant erythema or odor appreciated on exam after dressings were removed. If odor persists they were instructed to contact center/provider for antibiotic treatment. Will cover with KerraMaxCare or ABDs and wound drape with changes once daily for heavy amount of drainage of his lumbar wound. Continue increased protein intake. F/U in [address] Wick.
== END 2019-12-04 23:59 ==
LOC: WC 13:30
PROVIDERS: Family Provider Family Medicine; PCP Family Medicine; Referring Provider Family Medicine; Visit Provider Family Medicine
DX: T81.30XA Disruption of wound, unspecified, initial encounter (principal); Y83.9 Surgical procedure, unspecified as the cause of abnormal reaction of the patient, or of later complication, without mention of misadventure at the time of the procedure; Z79.01 Long term (current) use of anticoagulants; Z79.899 Other long term (current) drug therapy; I87.2 Venous insufficiency (chronic) (peripheral); R60.0 Localized edema
CPT/HCPCS: 11042; 11045

== ENCOUNTER → 2019-12-21 13:32 | Outpatient (CLI) | payer MEDICARE, OTHER, SELFPAY ==
[2015-10-31 10:00] VITALS: BMI 34.9
[2019-12-18 13:26] VITALS: BMI 28.9
[2019-12-21 15:38] LABS: Erythrocyte Sedimentation Rate 51 mm/hr (0-20)
[2019-12-21 15:42] LABS: Absolute Lymphocyte Count 1.08 X10^3/uL (0.83-4.51); Basophil# 0.05 X10^3/uL; Basophil% 0.9 % (0-1); Eosinophil# 0.26 X10^3/uL; Eosinophils% 4.6 % (0-5); Hematocrit 34.8 % (40-54); Hemoglobin 11.1 g/dL (13.0-16.5); Lymphocyte # 1.08 X10^3/ul (4.0); Lymphocyte % 19.3 % (19-41); Mean Corp Hgb Conc 31.9 g/dL (32-36); Mean Corpuscular Hgb 34.9 pg (27.0-32.0); Mean Corpuscular Volume 109.4 fL (80-94); Mean Platelet Vol. 11.7 fl (6.2-12.0); Monocyte# 1.21 X10^3/uL; Monocyte% 21.6 % (0-10); NRBC Flagged by Analyzer 0.4 % (0-5); Neutrophil # 2.97 X10^3/uL (2.7-7.7); Neutrophil % 53.1 % (47-70); POSITIVE MORPHOLOGY YES; Platelet Count 143 K/mm3 (150-450); RBC Distribution Width SD 72.1 fl (35.1-43.9); Red Blood Count 3.18 M/mm3 (4.6-6.2); White Blood Count 5.6 K/mm3 (4.4-11.0)
[2019-12-21 15:47] LABS: Differential Indicated SCAN CRITERIA MET
[2019-12-21 16:00] LABS: ALB/GLOB Ratio 0.5 RATIO (0.9-2.4); AST(SGOT) 30 U/L (15-37); Alanine Aminotransfer ALT/SGPT 18 U/L (16-61); Albumin, Serum 2.6 g/dL (3.2-5.0); Alkaline Phosphatase 118 U/L (45-117); Anion Gap 7 (5-15); BUN 36 mg/dL (7-18); BUN/Creat Ratio 20.2 RATIO (10-20); Calcium,Total 8.2 mg/dL (8.5-10.1); Chloride 97 mmol/L (98-107); Creatinine, Serum 1.78 mg/dL (0.70-1.30); EST Glomerular Filtration Rate 40 mL/min (>60); Est Glom Filt Rate - Afr Amer 48 mL/min (>60); Globulin 5.5 g/dL (2.2-4.2); Glucose 99 mg/dL (74-106); Potassium 4.2 mmol/L (3.5-5.1); Protein, Total 8.1 g/dL (6.4-8.2); Sodium Level 135 mmol/L (136-145)
[2019-12-21 16:13] LABS: Differential Comment SCANNED
== END ==
PROVIDERS: PCP Family Medicine; Visit Provider Family Medicine
DX: N18.3 Chronic kidney disease, stage 3 (moderate) (principal); M54.5 Low back pain; D64.9 Anemia, unspecified
CPT/HCPCS: 36415; 80053; 85025; 85652; 86140

== ENCOUNTER → 2019-12-29 15:36 | Outpatient (CLI) | payer MEDICARE, OTHER, SELFPAY ==
[2015-10-31 10:00] VITALS: BMI 34.9
[2019-12-18 13:26] VITALS: BMI 28.9
--- NOTE | 2019-12-29 15:38 | CT_ITS ---
STUDY: CT LUMBAR SPINE WITH CONTRAST REASON FOR EXAM: Male, 74 years old. LOW BACK PAIN/CHRONIC OPEN LUMBAR WOUND SINCE LAMINECTOMY 2 YR AGO. Hx of lymphoma, asthma, gout and HLD. Prior splenectomy, laminectomy. RADIATION DOSAGE (If Supplied By Facility): CTDIvol = ( 19.23 ) mGy, DLP = ( 877.5 ) mGycm TECHNIQUE: The patient was scanned in a multi detector CT scanner. High resolution transaxial imaging was performed following the intravenous administration of IV 100mL Isovue-370. Images were obtained from T11 to lower sacrum. Sagittal and coronal images were reconstructed. Individualized dose optimization techniques were used for this CT. COMPARISON: Prior study of 02/24/2018 FINDINGS: Normal lumbar lordosis. There is no substantial scoliosis. There are again demonstrated sclerotic/destructive changes of the L5 vertebral body stable in the interval. There is been further compression deformity with sclerosis of L3. Minimal sclerosis of the anterior aspect of L1 is also noted, similar to the previous study. There is diffuse endplate spondylosis of the lumbar spine. L1-2: There are bilateral hypertrophic degenerative facet changes. Disc spacing is preserved. There is vacuum disc phenomenon anteriorly. There is mild central canal stenosis caused by posterior annular bulging and hypertrophic facet changes. There is no foraminal narrowing. L2-3: Disc spacing is preserved. There is vacuum disc phenomenon. There are bilateral degenerative facet changes. There is posterior annular bulging. There is moderately severe central canal stenosis caused by hypertrophic facet changes, posterior annular bulging, and ligamentum flavum hypertrophy. There is no foraminal narrowing. L3-4: There are bilateral hypertrophic degenerative facet changes. There is severe central canal stenosis caused by ligamentum flavum hypertrophy, degenerative facet changes, and posterior annular bulging. There is no foraminal narrowing. L4-5: Disc spacing is preserved. There are bilateral hypertrophic degenerative facet changes. There is mild central canal stenosis caused by hypertrophic facet changes, posterior annular bulging, and ligamentum flavum hypertrophy. Status post left L5 hemilaminectomy changes are noted. L5-S1: There are bilateral degenerative facet changes. There is mild bilateral foraminal narrowing. There is no central canal stenosis. Disc spacing is preserved. There is skin defect of the mid posterior spinal region consistent with postoperative change. There are sclerotic changes of the L3 and L4 spinous processes. There is no evidence of soft tissue abscess or abnormal fluid collection in the region. CT/Spine Lumbar WITH Contrast IMPRESSION: Postsurgical and degenerative changes of the lumbar spine as detailed above. There has been further interval compression deformity with sclerosis of L3 when compared to the study of 02/24/2018. No other significant interval changes apparent. Electronically Signed: Luca Stratton MD at 21:47 EDT , Service support ,
== END ==
PROVIDERS: PCP Family Medicine; Referring Provider Family Medicine; Visit Provider Family Medicine
DX: M54.9 Dorsalgia, unspecified (principal); M54.5 Low back pain; G89.29 Other chronic pain; S21.20 Unspecified open wound of back wall of thorax without penetration into thoracic cavity; X58.XXXA Exposure to other specified factors, initial encounter; Y93.9 Activity, unspecified; Y92.9 Unspecified place or not applicable; Y99.9 Unspecified external cause status
CPT/HCPCS: 72132; Q9967

== ENCOUNTER 2020-01-01 13:00 | Outpatient (RCR) | payer MEDICARE, OTHER, SELFPAY ==
[2015-10-31 10:00] VITALS: BMI 34.9
[2019-12-05 00:21] VITALS: BP 128/67; PULSE 82; RESP 20; TEMP 37.5
[2019-12-18 13:26] VITALS: BP 141/63; PULSE 77; RESP 18; TEMP 36.3; BMI 28.9
--- NOTE | 2019-12-19 15:40 | PN.PCM_ITS ---
(1) Non-healing surgical wound Status: Chronic Current Visit: Yes Qualifiers: Encounter type: subsequent encounter Code(s): T81.89XA - Other complications of procedures, not elsewhere classified, initial encounter (2) Open wound of lumbar region with complication Status: Chronic Current Visit: Yes Code(s): S31.000A - Unspecified open wound of lower back and pelvis without penetration into retroperitoneum, initial encounter Comment: h/o osteomyelitis and is chronic nonhealing surgical wound s/p lumbar decompression surgery Type of Wound Date of Service: 12/18/19 Chief Complaint: Nonhealing surgical wound of lower back History of Wound: Mr. Marshall is a 73-yo who has been seen here at the wound center for a nonhealing surgical wound of his lower back s/p surgical debridement for an abscess s/p lumbar spine surgery. His original surgery on his lower back was approximately 2015 and he has had multiple complications since that time. He underwent surgical debridement on 03/04/[address] Davila at [facility] in [place] and was discharged with a wound vac for healing by secondary intention with possible muscle flap closure in the future. He followed up with his surgeon on 04/18/17 for further evaluation and recommendations and they plan to close the wound with a muscle flap but he continues to develop infections. He is also being seen by Infectious Disease as needed. CT 02/2018 did not show any abscess. Progress of Wound: Cuong is here for follow-up of his nonhealing surgical wound of his lower back. His reports same amount of drainage as previous, drainage is very heavy. Denies pain or odor. He has been tolerating Aquacel alternating with acetic acid dressings to his back. Triamcinolone cream has helped with the irritation of the periwound area. He continues to have very heavy drainage from his lumbar surgical wound. He has had 10 applications of Purapply to his lower back wound with mild improvement which were completed 03/21/2018. Cuong saw the surgeon at [facility] on August 27, 2018 and he does not think a skin flap would be an option but talked about doing a skin graft from his thigh to the lower back. He has been having increased pain in his back and left leg presumably from nerve impingement. Denies increased drainage, fever or chills. - Physical Exam Vital Signs Temp Pulse Resp BP 97.3 F L 77 18 141/63 H 12/18/19 13:26 12/18/19 13:26 12/18/19 13:26 12/18/19 13:26 General: Alert, Oriented x3, Cooperative, No apparent distress HEENT: Atraumatic, Normocephalic Oral: Moist Mucosa Abdomen: Obese Extremities: Edema Wound Measurements and Assessment WC - Nurse 1 - General Ulcer Measurement Start: 12/18/19 13:25 Freq: Status: Active Protocol: Activity Type Activity Date Activity User E-Sign Co-Sign Detail Recorded Client Recorded Date Recorded By Document 12/18/19 13:26 RB [id number] 12/18/19 13:28 RB 12/18/19 13:26 Wound Center Nurse 1 [Ulcer Assessment] #9 Lower Lumbar- Midline -Combined with other wound No -Current Size (cm) - Length 13 -Current Size (cm) - Width 4 -Current Size (cm) - Depth 0.2 -Total Square Cm 52 -Tunneling No -Undermining/Tunneling No -Circular Undermining No -Exudate Amt Large -Exudate Type Serosanguineous -Wound Margin Flat & Intact -Granulation Amt Large (67-100%) -Granulation Quality Red -Slough/Fibrin Yes -Necrosis Amt Small (1-33%) -Necrotic Tissue Type Adherent Slough -Structure Exposed N/A -Texture (Uma-wound Skin Appearance) Assessed, Scarring -Moisture (Uma-wound Skin Appearance Assessed ) -Color (Uma-wound Skin Appearance) Assessed -Temperature (Uma-wound Skin No Abnormality Appearance) (Pt Warm) -Tenderness on Palpation (Uma-wound No Skin Appearance) -Ulcer Cleansing Wound Cleanser -Foul Odor after Cleansing No -Anesthetic Used 4% Lidocaine Solution WC - Nurse 2 - General Ulcer CM Notes Start: 12/18/19 13:25 Freq: Status: Active Protocol: Activity Type Activity Date Activity User E-Sign Co-Sign Detail Recorded Client Recorded Date Recorded By Document 12/18/19 13:34 MW [id number] 12/18/19 13:55 MW 12/18/19 13:34 Wound Center Nurse 2 [Procedure/Treatment] -Time 13:34 -Correct Patient Yes -Correct Side, Site, Position Yes -Correct Procedure Yes -Procedure Performed Yes -Type of Procedure Debridement -Clinical Debridement Subcutaneous -Post Debridement Size (cm) - Length 12.8 -Post Debridement Size (cm) - Width 3.6 -Post Debridement Size (cm) - Depth 0.4 -Total Square (cm) 46.08 -Wound/Ulcer Outcome Not Healed -Ulcer Cleansing Rinsed/ Irrigated with Saline -Foul Odor after Cleansing No -Bioengineered Tissue No -Bleeding Controlled with Pressure -Offloading No -Treatment Response Procedure Tolerated Well [See Physician Procedure note for Specifics] Pain Scale: 0-10 Numeric [Pain] -Is Patient Pain Free? Yes Psych/Mental Status: Normal Affect, Appropriate Debridement Note Post-Debridement Measurements/Treatment WC - Nurse 2 - General Ulcer CM Notes Start: 12/18/19 13:25 Freq: Status: Active Protocol: Activity Type Activity Date Activity User E-Sign Co-Sign Detail Recorded Client Recorded Date Recorded By Document 12/18/19 13:34 MW [id number] 12/18/19 13:55 MW 12/18/19 13:34 Wound Center Nurse 2 #9 Lower Lumbar- Midline -Time 13:34 -Correct Patient Yes -Correct Side, Site, Position Yes -Correct Procedure Yes -Procedure Performed Yes -Type of Procedure Debridement -Clinical Debridement Subcutaneous -Post Debridement Size (cm) - Length 12.8 -Post Debridement Size (cm) - Width 3.6 -Post Debridement Size (cm) - Depth 0.4 -Total Square (cm) 46.08 -Wound/Ulcer Outcome Not Healed -Ulcer Cleansing Rinsed/ Irrigated with Saline -Foul Odor after Cleansing No -Bioengineered Tissue No -Bleeding Controlled with Pressure -Offloading No -Treatment Response Procedure Tolerated Well Pain Scale: 0-10 Numeric Is Patient Pain Free? Yes Wound debrided: lower ute=mbar midline Laterality: Not Applicable Type of Debridement: Excisional debridement Anesthesia Used: 4% Lidocaine Solution Depth: Down to and including healthy tissue, in the subcutaneous layer, to muscle Percentage of wound debrided: 100 Instrument Used: 5mm curette Tissue Removed: yellow slough, devitalized tissue Severity: Fat Layer Exposed Amount of bleeding with debridement: Mild Bleeding Controlled with: Compression and gauze, Gel Foam Patient tolerated procedure well Assessment/Plan Active Problems (Last Reviewed 08/21/19 @ 10:[address] Micky Mauro MD) Non-healing surgical wound (Chronic) Open wound of lumbar region with complication (Chronic) h/o osteomyelitis and is chronic nonhealing surgical wound s/p lumbar decompression surgery Assessment: 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 malnutrition. other multiple comorbidities. edema bilateral lower extremities. venous insufficiency. immunocompromised status. Plan: Evaluated and debrided his lumbar wound. There continues to be mild improvement in his wound. Will continue to alternate dressings with Aquacel and acetic acid to his back wound. No significant erythema or odor appreciated on exam after dressings were removed. If odor persists they were instructed to contact center/provider for antibiotic treatment. Will cover with KerraMaxCare or ABDs and wound drape with changes once daily for heavy amount of drainage of his lumbar wound. Continue increased protein intake. F/U in [address] Wick.
[2020-01-01 12:58] VITALS: BP 146/71; PULSE 81; RESP 16; TEMP 36.6; BMI 28.9
--- NOTE | 2020-01-01 17:30 | PN.PCM_ITS ---
(1) Non-healing surgical wound Status: Chronic Current Visit: Yes Qualifiers: Encounter type: subsequent encounter Code(s): T81.89XA - Other complications of procedures, not elsewhere classified, initial encounter (2) Open wound of lumbar region with complication Status: Chronic Current Visit: Yes Code(s): S31.000A - Unspecified open wound of lower back and pelvis without penetration into retroperitoneum, initial encounter Comment: h/o osteomyelitis and is chronic nonhealing surgical wound s/p lumbar decompression surgery Type of Wound Date of Service: 01/01/20 Chief Complaint: Nonhealing surgical wound of lower back History of Wound: Mr. Marshall is a 73-yo who has been seen here at the wound center for a nonhealing surgical wound of his lower back s/p surgical debridement for an abscess s/p lumbar spine surgery. His original surgery on his lower back was approximately 2015 and he has had multiple complications since that time. He underwent surgical debridement on 03/04/[address] Davila at [facility] in [place] and was discharged with a wound vac for healing by secondary intention with possible muscle flap closure in the future. He followed up with his surgeon on 04/18/17 for further evaluation and recommendations and they plan to close the wound with a muscle flap but he continues to develop infections. He is also being seen by Infectious Disease as needed. CT 02/2018 did not show any abscess. Progress of Wound: Cuong is here for follow-up of his nonhealing surgical wound of his lower back. His reports same amount of drainage as previous, drainage is very heavy. Denies pain or odor. He has been tolerating Aquacel alternating with acetic acid dressings to his back. Triamcinolone cream has helped with the irritation of the periwound area. He continues to have very heavy drainage from his lumbar surgical wound. He has had 10 applications of Purapply to his lower back wound with mild improvement which were completed 03/21/2018. Cuong saw the surgeon at [facility] on August 27, 2018 and he does not think a skin flap would be an option but talked about doing a skin graft from his thigh to the lower back. He has been having increased pain in his back and left leg presumably from nerve impingement. Denies increased drainage, fever or chills. - Physical Exam Vital Signs Temp Pulse Resp BP 97.8 F 81 16 146/71 H 08/28/20 12:58 01/01/20 12:58 01/01/20 12:58 01/01/20 12:58 General: Alert, Oriented x3, Cooperative, No apparent distress HEENT: Atraumatic, Normocephalic Oral: Moist Mucosa Skin: Ulcer/ Wound Wound Measurements and Assessment - Nurse 1 - General Ulcer Measurement Start: 12/18/19 13:25 Freq: Status: Active Protocol: Activity Type Activity Date Activity User E-Sign Co-Sign Detail Recorded Client Recorded Date Recorded By Document 01/01/20 12:58 BM [id number] 01/01/20 13:07 BM 01/01/20 12:58 Wound Center Nurse 1 [Ulcer Assessment] #9 Lower Lumbar- Midline -Combined with other wound No -Current Size (cm) - Length 14 -Current Size (cm) - Width 3.8 -Current Size (cm) - Depth 0.2 -Total Square Cm 53.2 -Photo Taken No -Epithelialization None Present -Tunneling No -Undermining/Tunneling No -Circular Undermining No -Exudate Amt Large -Exudate Type Serosanguineous -Wound Margin Thickened & Rolled Under -Granulation Amt Small (1-33%) -Granulation Quality Red -Slough/Fibrin Yes -Necrosis Amt Large (67-100%) -Necrotic Tissue Type Adherent Slough -Texture (Uma-wound Skin Appearance) Assessed, Scarring -Moisture (Uam-wound Skin Appearance Assessed ) -Color (Uma-wound Skin Appearance) Assessed, Erythema -Temperature (Uma-wound Skin No Abnormality Appearance) (Pt Warm) -Tenderness on Palpation (Uma-wound No Skin Appearance) -Ulcer Cleansing soapy water -Foul Odor after Cleansing No -Anesthetic Used 4% Lidocaine Solution - Nurse 2 - General Ulcer CM Notes Start: 01/01/20 13:17 Freq: Status: Active Protocol: Activity Type Activity Date Activity User E-Sign Co-Sign Detail Recorded Client Recorded Date Recorded By Document 01/01/20 13:17 MW [id number] 01/01/20 13:32 MW 01/01/20 13:17 Wound Center Nurse 2 [Procedure/Treatment] -Time 13:17 -Correct Patient Yes -Correct Side, Site, Position Yes -Correct Procedure Yes -Procedure Performed Yes -Type of Procedure Debridement -Clinical Debridement Subcutaneous -Tissue Removed Subcutaneous -Post Debridement (cm) - Length 12.6 -Post Debridement (cm) - Width 3.6 -Post Debridement (cm) - Depth 0.2 -Total Square (Post) (cm) 45.36 -Area of Debridement (cm) - Length 12.6 -Area of Debridement (cm) - Width 3.6 -Total Square (Area) (cm) 45.36 -Tunneling No -Undermining/Tunneling No -Circular Undermining No -Wound/Ulcer Outcome Not Healed -Ulcer Cleansing Rinsed/ Irrigated with Saline -Foul Odor after Cleansing No -Bioengineered Tissue No -Bleeding Controlled with Pressure, SURGIFOAM -Offloading No -Treatment Response Procedure Tolerated Well -Debridement - Subq, 1st 20sq cm Yes -Debridement, SubQ, ea addt'l 20sq cm 2 or part thereof [See Physician Procedure note for Specifics] Pain Scale: 0-10 Numeric [Pain] -Is Patient Pain Free? Yes - Nurse 3 - General Ulcer D/C NN Start: 01/01/20 13:43 Freq: Status: Active Protocol: Activity Type Activity Date Activity User E-Sign Co-Sign Detail Recorded Client Recorded Date Recorded By Document 01/01/20 13:43 [facility] [id number] 01/01/20 13:44 [facility] 01/01/20 13:43 Wound Care Nurse 3 [Wound Dressing] #9 Lower Lumbar- Midline -Ulcer Cleansing Rinsed/ Irrigated with Saline -Foul Odor after Cleansing No -Primary Dressing Applied Aquacel Extra, Surgifoam -Primary Dressing Covered/Secured Dry Gauze, with Secured with Tape,Other -Other Covering edward drape -Aquacel Extra 1 -Surgifoam 12-7mm (3/4 x 2 3/8) 4 [Post Procedure Tolerated] -Treatment Response Procedure Tolerated Well Pain Scale: 0-10 Numeric [Pain] -Is Patient Pain Free? Yes - Visit Discharge [Visit Discharge Information] -Discharge Condition Stable -Ambulatory Status Ambulatory,Cane -Transportation Private Auto -Accompanied by Psych/Mental Status: Normal Affect, Appropriate Debridement Note Post-Debridement Measurements/Treatment ELIZABETH - Nurse 2 - General Ulcer CM Notes Start: 01/01/20 13:17 Freq: Status: Active Protocol: Activity Type Activity Date Activity User E-Sign Co-Sign Detail Recorded Client Recorded Date Recorded By Document 01/01/20 13:17 [id number] 01/01/20 13:32 01/01/20 13:17 Wound Center Nurse 2 #9 Lower Lumbar- Midline -Time 13:17 -Correct Patient Yes -Correct Side, Site, Position Yes -Correct Procedure Yes -Procedure Performed Yes -Type of Procedure Debridement -Clinical Debridement Subcutaneous -Tissue Removed Subcutaneous -Post Debridement (cm) - Length 12.6 -Post Debridement (cm) - Width 3.6 -Post Debridement (cm) - Depth 0.2 -Total Square (Post) (cm) 45.36 -Area of Debridement (cm) - Length 12.6 -Area of Debridement (cm) - Width 3.6 -Total Square (Area) (cm) 45.36 -Tunneling No -Undermining/Tunneling No -Circular Undermining No -Wound/Ulcer Outcome Not Healed -Ulcer Cleansing Rinsed/ Irrigated with Saline -Foul Odor after Cleansing No -Bioengineered Tissue No -Bleeding Controlled with Pressure, SURGIFOAM -Offloading No -Treatment Response Procedure Tolerated Well -Debridement - Subq, 1st 20sq cm Yes -Debridement, SubQ, ea addt'l 20sq cm 2 or part thereof Pain Scale: 0-10 Numeric Is Patient Pain Free? Yes - Nurse 3 - General Ulcer D/C NN Start: 01/01/20 13:43 Freq: Status: Active Protocol: Activity Type Activity Date Activity User E-Sign Co-Sign Detail Recorded Client Recorded Date Recorded By Document 01/01/20 13:43 [facility] [id number] 01/01/20 13:44 [facility] 01/01/20 13:43 Wound Care Nurse 3 #9 Lower Lumbar- Midline -Ulcer Cleansing Rinsed/ Irrigated with Saline -Foul Odor after Cleansing No -Primary Dressing Applied Aquacel Extra, Surgifoam -Primary Dressing Covered/Secured with Dry Gauze, Secured with Tape,Other -Other Covering edward drape -Aquacel Extra 1 -Surgifoam 12-7mm (3/4 x 2 3/8) 4 Treatment Response Procedure Tolerated Well Pain Scale: 0-10 Numeric Is Patient Pain Free? Yes - Visit Discharge Discharge Condition Stable Ambulatory Status Ambulatory,Cane Transportation Private Auto Accompanied by Wound debrided: lower lumbar midline Laterality: Not Applicable Type of Debridement: Excisional debridement Anesthesia Used: 4% Lidocaine Solution, 5% Lidocaine Gel Depth: Down to and including healthy tissue, in the subcutaneous layer Percentage of wound debrided: 100 Instrument Used: 7mm curette Tissue Removed: Yellow slough, devitalized tissue Severity: Fat Layer Exposed Amount of bleeding with debridement: Moderate Bleeding Controlled with: Compression and gauze, Gel Foam Patient tolerated procedure well Assessment/Plan Active Problems (Last Reviewed 08/21/19 @ 10:[address] Micky Mauro MD) Non-healing surgical wound (Chronic) Open wound of lumbar region with complication (Chronic) h/o osteomyelitis and is chronic nonhealing surgical wound s/p lumbar decompression surgery Assessment: 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 malnutrition. other multiple comorbidities. edema bilateral lower extremities. venous insufficiency. immunocompromised status. Plan: Evaluated and debrided his lumbar wound. There continues to be mild improvement in his wound. Will continue to alternate dressings with Aquacel and acetic acid to his back wound. No significant erythema or odor appreciated on exam after dressings were removed. Will cover with KerraMaxCare or ABDs and wound drape with changes once daily for heavy amount of drainage of his lumbar wound. Continue increased protein intake. F/U in [address] Wick.
== END 2020-01-04 23:59 ==
LOC: WC 13:00
PROVIDERS: Family Provider Family Medicine; PCP Family Medicine; Referring Provider Family Medicine; Visit Provider Family Medicine
DX: T81.30XA Disruption of wound, unspecified, initial encounter (principal); S31.000A Unspecified open wound of lower back and pelvis without penetration into retroperitoneum, initial encounter; Y83.9 Surgical procedure, unspecified as the cause of abnormal reaction of the patient, or of later complication, without mention of misadventure at the time of the procedure; Y92.9 Unspecified place or not applicable; I87.2 Venous insufficiency (chronic) (peripheral); Z79.01 Long term (current) use of anticoagulants; Z79.899 Other long term (current) drug therapy
CPT/HCPCS: 11042; 11045

== ENCOUNTER 2020-01-29 12:30 | Outpatient (RCR) | payer MEDICARE, OTHER, SELFPAY ==
[2015-10-31 10:00] VITALS: BMI 34.9
[2020-01-05 00:26] VITALS: BP 146/71; PULSE 81; RESP 16; TEMP 36.6
[2020-01-15 13:34] VITALS: BP 117/54; PULSE 81; RESP 16; TEMP 36.2; BMI 28.9
--- NOTE | 2020-01-15 15:34 | PN.PCM_ITS ---
(1) Non-healing surgical wound Status: Chronic Qualifiers: Encounter type: subsequent encounter Code(s): T81.89XA - Other complications of procedures, not elsewhere classified, initial encounter (2) Open wound of lumbar region with complication Status: Chronic Code(s): S31.000A - Unspecified open wound of lower back and pelvis without penetration into retroperitoneum, initial encounter Comment: h/o osteomyelitis and is chronic nonhealing surgical wound s/p lumbar decompression surgery Type of Wound Date of Service: 01/15/20 Chief Complaint: Nonhealing surgical wound of lower back History of Wound: Mr. Marshall is a 73-yo who has been seen here at the wound center for a nonhealing surgical wound of his lower back s/p surgical debridement for an abscess s/p lumbar spine surgery. His original surgery on his lower back was approximately 2016 and he has had multiple complications since that time. He underwent surgical debridement on 03/04/[address] Davila at [facility] in [place] and was discharged with a wound vac for healing by secondary intention with possible muscle flap closure in the future. He followed up with his surgeon on 04/18/17 for further evaluation and recommendations and they plan to close the wound with a muscle flap but he continues to develop infections. He is also being seen by Infectious Disease as needed. CT 02/2018 did not show any abscess. Progress of Wound: Cuong is here for follow-up of his nonhealing surgical wound of his lower back. His reports same amount of drainage as previous, drainage is very heavy. Denies pain or odor. He has been tolerating Aquacel alternating with acetic acid dressings to his back. Triamcinolone cream has helped with the irritation of the periwound area. He continues to have very heavy drainage from his lumbar surgical wound. He has had 10 applications of Purapply to his lower back wound with mild improvement which were completed 03/21/2018. Cuong saw the surgeon at [facility] on August 27, 2018 and he does not think a skin flap would be an option but talked about doing a skin g raft from his thigh to the lower back. He has been having increased pain in his back and left leg presumably from nerve impingement. Denies increased drainage, fever or chills. - Physical Exam Vital Signs Temp Pulse Resp BP 97.2 F L 81 16 117/54 L 01/15/20 13:34 01/15/20 13:34 01/15/20 13:34 01/15/20 13:34 General: Alert, Oriented x3, Cooperative, No apparent distress HEENT: Atraumatic, Normocephalic Oral: Moist Mucosa Skin: Ulcer/ Wound Wound Measurements and Assessment WC - Nurse 1 - General Ulcer Measurement Start: 01/15/20 13:34 Freq: Status: Active Protocol: Activity Type Activity Date Activity User E-Sign Co-Sign Detail Recorded Client Recorded Date Recorded By Document 01/15/20 13:34 [facility] [id number] 01/15/20 13:46 BMF 01/15/20 13:34 Wound Center Nurse 1 [Ulcer Assessment] #9 Lower Lumbar- Midline -Combined with other wound No -Current Size (cm) - Length 13.7 -Current Size (cm) - Width 4 -Current Size (cm) - Depth 0.2 -Total Square Cm 54.8 -Photo Taken No -Epithelialization None Present -Tunneling No -Undermining/Tunneling No -Circular Undermining No -Exudate Amt Medium -Exudate Type Yellow/Green -Wound Margin Thickened & Rolled Under -Granulation Amt Medium (34-66%) -Granulation Quality [place] -Slough/Fibrin Yes -Necrosis Amt Medium (34-66%) -Necrotic Tissue Type Adherent Slough -Texture (Uma-wound Skin Appearance) Assessed, Excoriation, Scarring -Moisture (Uma-wound Skin Appearance Assessed,Dry/ ) Scaly -Color (Uma-wound Skin Appearance) Assessed, Erythema -Temperature (Uma-wound Skin No Abnormality Appearance) (Pt Warm) -Tenderness on Palpation (Uma-wound No Skin Appearance) -Ulcer Cleansing soapy water -Foul Odor after Cleansing No -Anesthetic Used 4% Lidocaine Solution WC - Nurse 2 - General Ulcer CM Notes Start: 01/15/20 13:34 Freq: Status: Active Protocol: Activity Type Activity Date Activity User E-Sign Co-Sign Detail Recorded Client Recorded Date Recorded By Document 01/15/20 13:56 MW [id number] 01/15/20 14:15 MW 01/15/20 13:56 Wound Center Nurse 2 [Procedure/Treatment] -Time 13:57 -Correct Patient Yes -Correct Side, Site, Position Yes -Correct Procedure Yes -Procedure Performed Yes -Type of Procedure Debridement -Clinical Debridement Subcutaneous -Tissue Removed Subcutaneous -Post Debridement (cm) - Length 12.5 -Post Debridement (cm) - Width 3.5 -Post Debridement (cm) - Depth 0.2 -Total Square (Post) (cm) 43.75 -Area of Debridement (cm) - Length 12.5 -Area of Debridement (cm) - Width 3.5 -Total Square (Area) (cm) 43.75 -Tunneling No -Undermining/Tunneling No -Circular Undermining No -Wound/Ulcer Outcome Not Healed -Ulcer Cleansing Rinsed/ Irrigated with Saline -Foul Odor after Cleansing No -Bioengineered Tissue No -Bleeding Controlled with Pressure -Offloading No -Debridement - Subq, 1st 20sq cm Yes -Debridement, SubQ, ea addt'l 20sq cm 2 or part thereof [See Physician Procedure note for Specifics] Pain Scale: 0-10 Numeric [Pain] -Is Patient Pain Free? Yes - Nurse 3 - General Ulcer D/C NN Start: 01/15/20 13:34 Freq: Status: Active Protocol: Activity Type Activity Date Activity User E-Sign Co-Sign Detail Recorded Client Recorded Date Recorded By Document 01/15/20 14:16 [facility] [id number] 01/15/20 14:17 [facility] 01/15/20 14:16 Wound Care Nurse 3 [Wound Dressing] #9 Lower Lumbar- Midline -Ulcer Cleansing Rinsed/ Irrigated with Saline -Foul Odor after Cleansing No -Primary Dressing Applied Aquacel Extra -Primary Dressing Covered/Secured Secured with with Tape,Other -Other Covering abd -Aquacel Extra 1 [Post Procedure Tolerated] -Treatment Response Procedure Tolerated Well Pain Scale: 0-10 Numeric [Pain] -Is Patient Pain Free? Yes - Visit Discharge [Visit Discharge Information] -Discharge Condition Stable -Ambulatory Status Ambulatory,Cane -Transportation Private Auto -Accompanied by Psych/Mental Status: Normal Affect, Appropriate Debridement Note Post-Debridement Measurements/Treatment - Nurse 2 - General Ulcer CM Notes Start: 01/15/20 13:34 Freq: Status: Active Protocol: Activity Type Activity Date Activity User E-Sign Co-Sign Detail Recorded Client Recorded Date Recorded By Document 01/15/20 13:56 [id number] 01/15/20 14:15 01/15/20 13:56 Wound Center Nurse 2 #9 Lower Lumbar- Midline -Time 13:57 -Correct Patient Yes -Correct Side, Site, Position Yes -Correct Procedure Yes -Procedure Performed Yes -Type of Procedure Debridement -Clinical Debridement Subcutaneous -Tissue Removed Subcutaneous -Post Debridement (cm) - Length 12.5 -Post Debridement (cm) - Width 3.5 -Post Debridement (cm) - Depth 0.2 -Total Square (Post) (cm) 43.75 -Area of Debridement (cm) - Length 12.5 -Area of Debridement (cm) - Width 3.5 -Total Square (Area) (cm) 43.75 -Tunneling No -Undermining/Tunneling No -Circular Undermining No -Wound/Ulcer Outcome Not Healed -Ulcer Cleansing Rinsed/ Irrigated with Saline -Foul Odor after Cleansing No -Bioengineered Tissue No -Bleeding Controlled with Pressure -Offloading No -Debridement - Subq, 1st 20sq cm Yes -Debridement, SubQ, ea addt'l 20sq cm 2 or part thereof Pain Scale: 0-10 Numeric Is Patient Pain Free? Yes - Nurse 3 - General Ulcer D/C NN Start: 01/15/20 13:34 Freq: Status: Active Protocol: Activity Type Activity Date Activity User E-Sign Co-Sign Detail Recorded Client Recorded Date Recorded By Document 01/15/20 14:16 [facility] [id number] 01/15/20 14:17 [facility] 01/15/20 14:16 Wound Care Nurse 3 #9 Lower Lumbar- Midline -Ulcer Cleansing Rinsed/ Irrigated with Saline -Foul Odor after Cleansing No -Primary Dressing Applied Aquacel Extra -Primary Dressing Covered/Secured with Secured with Tape,Other -Other Covering abd -Aquacel Extra 1 Treatment Response Procedure Tolerated Well Pain Scale: 0-10 Numeric Is Patient Pain Free? Yes - Visit Discharge Discharge Condition Stable Ambulatory Status Ambulatory,Cane Transportation Private Auto Accompanied by Wound debrided: lower lumbar midline Laterality: Not Applicable Type of Debridement: Excisional debridement Anesthesia Used: 4% Lidocaine Solution, 5% Lidocaine Gel Depth: Down to and including healthy tissue, in the subcutaneous layer, to muscle Percentage of wound debrided: 100 Instrument Used: 5mm curette Tissue Removed: Yellow slough, devitalized tissue Severity: Fat Layer Exposed Amount of bleeding with debridement: Moderate Bleeding Controlled with: Compression and gauze, Gel Foam Patient tolerated procedure well Assessment/Plan Assessment: 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 malnutrition. other multiple comorbidities. edema bilateral lower extremities. venous insufficiency. immunocompromised status. Plan: Evaluated and debrided his lumbar wound. There continues to be mild improvement in his wound. Will continue to alternate dressings with Aquacel and acetic acid to his back wound. No significant erythema or odor appreciated on exam after dressings were removed. Will cover with KerraMaxCare or ABDs and wound drape with changes once daily for heavy amount of drainage of his lumbar wound. Continue increased protein intake. F/U in [address] Wick.
[2020-01-29 12:38] VITALS: BP 110/53; PULSE 95; RESP 18; TEMP 36.1; BMI 28.9
--- NOTE | 2020-01-29 14:23 | PCM.WC.PN ---
(1) Non-healing surgical wound Status: Chronic Current Visit: Yes Qualifiers: Encounter type: subsequent encounter Code(s): T81.89XA - Other complications of procedures, not elsewhere classified, initial encounter (2) Open wound of lumbar region with complication Status: Chronic Current Visit: Yes Code(s): S31.000A - Unspecified open wound of lower back and pelvis without penetration into retroperitoneum, initial encounter Comment: h/o osteomyelitis and is chronic nonhealing surgical wound s/p lumbar decompression surgery Type of Wound Date of Service: 01/29/20 Chief Complaint: Nonhealing surgical wound of lower back History of Wound: Mr. Marshall is a 73-yo who has been seen here at the wound center for a nonhealing surgical wound of his lower back s/p surgical debridement for an abscess s/p lumbar spine surgery. His original surgery on his lower back was approximately 2015 and he has had multiple complications since that time. He underwent surgical debridement on 03/04/[address] Davila at [facility] in [place] and was discharged with a wound vac for healing by secondary intention with possible muscle flap closure in the future. He followed up with his surgeon on 04/18/17 for further evaluation and recommendations and they plan to close the wound with a muscle flap but he continues to develop infections. He is also being seen by Infectious Disease as needed. CT 02/2018 did not show any abscess. Progress of Wound: Cuong is here for follow-up of his nonhealing surgical wound of his lower back. His reports same amount of drainage as previous, drainage is very heavy. Denies pain or odor. He has been tolerating Aquacel alternating with acetic acid dressings to his back. Triamcinolone cream has helped with the irritation of the periwound area. He continues to have very heavy drainage from his lumbar surgical wound. He has had 10 applications of Purapply to his lower back wound with mild improvement which were completed 03/21/2018. Cuong saw the surgeon at [facility] on August 27, 2018 and he does not think a skin flap would be an option but talked about doing a skin graft from his thigh to the lower back. He has been having increased pain in his back and left leg presumably from nerve impingement. Denies increased drainage, fever or chills. - Physical Exam Vital Signs Temp Pulse Resp BP 97 F L 95 18 110/53 L 01/29/20 12:38 01/29/20 12:38 01/29/20 12:38 01/29/20 12:38 General: Alert, Oriented x3, Cooperative, No apparent distress HEENT: Atraumatic, Normocephalic Oral: Moist Mucosa Skin: Ulcer/ Wound Wound Measurements and Assessment WC - Nurse 1 - General Ulcer Measurement Start: 01/15/20 13:34 Freq: Status: Active Protocol: Activity Type Activity Date Activity User E-Sign Co-Sign Detail Recorded Client Recorded Date Recorded By Document 01/29/20 12:38 RB [id number] 01/29/20 12:40 RB 01/29/20 12:38 Wound Center Nurse 1 [Ulcer Assessment] #9 Lower Lumbar- Midline -Combined with other wound No -Current Size (cm) - Length 12.5 -Current Size (cm) - Width 4 -Current Size (cm) - Depth 0.2 -Total Square Cm 50.0 -Tunneling No -Undermining/Tunneling No -Circular Undermining No -Exudate Amt Large -Exudate Type Serosanguineous -Wound Margin Thickened & Rolled Under -Granulation Amt Medium (34-66%) -Granulation Quality [place] -Slough/Fibrin Yes -Necrosis Amt Medium (34-66%) -Necrotic Tissue Type Adherent Slough -Structure Exposed N/A -Texture (Uma-wound Skin Appearance) Assessed, Excoriation, Scarring -Moisture (Uma-wound Skin Appearance Assessed ) -Color (Uma-wound Skin Appearance) Assessed -Temperature (Uma-wound Skin No Abnormality Appearance) (Pt Warm) -Tenderness on Palpation (Uma-wound No Skin Appearance) -Ulcer Cleansing Wound Cleanser -Foul Odor after Cleansing Yes -Anesthetic Used 4% Lidocaine Solution WC - Nurse 2 - General Ulcer CM Notes Start: 01/15/20 13:34 Freq: Status: Active Protocol: Activity Type Activity Date Activity User E-Sign Co-Sign Detail Recorded Client Recorded Date Recorded By Document 01/29/20 13:08 MW [id number] 01/29/20 13:10 MW 01/29/20 13:08 Wound Center Nurse 2 [Procedure/Treatment] -Time 13:09 -Correct Patient Yes -Correct Side, Site, Position Yes -Correct Procedure Yes -Procedure Performed Yes -Type of Procedure Debridement -Clinical Debridement Subcutaneous -Tissue Removed Subcutaneous -Post Debridement (cm) - Length 12.4 -Post Debridement (cm) - Width 3.8 -Post Debridement (cm) - Depth 0.2 -Total Square (Post) (cm) 47.12 -Area of Debridement (cm) - Length 12.4 -Area of Debridement (cm) - Width 3.8 -Total Square (Area) (cm) 47.12 -Tunneling No -Undermining/Tunneling No -Circular Undermining No -Wound/Ulcer Outcome Not Healed -Ulcer Cleansing Rinsed/ Irrigated with Saline -Foul Odor after Cleansing No -Bioengineered Tissue No -Bleeding Controlled with Pressure -Offloading No -Debridement - Subq, 1st 20sq cm Yes -Debridement, SubQ, ea addt'l 20sq cm 2 or part thereof [See Physician Procedure note for Specifics] Pain Scale: 0-10 Numeric [Pain] -Is Patient Pain Free? Yes WC - Nurse 3 - General Ulcer D/C NN Start: 01/15/20 13:34 Freq: Status: Active Protocol: Activity Type Activity Date Activity User E-Sign Co-Sign Detail Recorded Client Recorded Date Recorded By Document 01/29/20 13:14 MW [id number] 01/29/20 13:15 MW 01/29/20 13:14 Wound Care Nurse 3 [Wound Dressing] #9 Lower Lumbar- Midline -Ulcer Cleansing Rinsed/ Irrigated with Saline -Foul Odor after Cleansing No -Negative Pressure Wound Therapy N/A -Primary Dressing Applied Aquacel Extra -Primary Dressing Covered/Secured Dry Gauze with -Other Covering abd pads, drape -Aquacel Extra 1 Teaching: Wound Center [Wound Center Education] (Items with an * have Printed Materials Available- Please identify what is given to patient under the Teaching materials given to patient and caregiver Section. Dressing Your Wound -Person Taught Patient,Family -Teaching Method Discussion, Demonstration -Response to teaching Verbalize understanding WC - Visit Discharge [Visit Discharge Information] -Discharge Condition Stable -Ambulatory Status Ambulatory,Cane -Transportation Private Auto -Accompanied by -Medication Reconcilliation completed No & provided to patient/care provider -Clinical Summary of Care Provided Yes Psych/Mental Status: Normal Affect, Appropriate Debridement Note Post-Debridement Measurements/Treatment WC - Nurse 2 - General Ulcer CM Notes Start: 01/15/20 13:34 Freq: Status: Active Protocol: Activity Type Activity Date Activity User E-Sign Co-Sign Detail Recorded Client Recorded Date Recorded By Document 01/15/20 13:56 MW [id number] 01/15/20 14:15 MW Document 01/29/20 13:08 MW [id number] 01/29/20 13:10 MW 01/15/20 01/29/20 13:56 13:08 Wound Center Nurse 2 #9 Lower Lumbar- Midline -Time 13:57 13:09 -Correct Patient Yes Yes -Correct Side, Site, Position Yes Yes -Correct Procedure Yes Yes -Procedure Performed Yes Yes -Type of Procedure Debridement Debridement -Clinical Debridement Subcutaneous Subcutaneous -Tissue Removed Subcutaneous Subcutaneous -Post Debridement (cm) - Length 12.5 12.4 -Post Debridement (cm) - Width 3.5 3.8 -Post Debridement (cm) - Depth 0.2 0.2 -Total Square (Post) (cm) 43.75 47.12 -Area of Debridement (cm) - Length 12.5 12.4 -Area of Debridement (cm) - Width 3.5 3.8 -Total Square (Area) (cm) 43.75 47.12 -Tunneling No No -Undermining/Tunneling No No -Circular Undermining No No -Wound/Ulcer Outcome Not Healed Not Healed -Ulcer Cleansing Rinsed/ Rinsed/ Irrigated with Irrigated with Saline Saline -Foul Odor after Cleansing No No -Bioengineered Tissue No No -Bleeding Controlled with Pressure Pressure -Offloading No No -Debridement - Subq, 1st 20sq cm Yes Yes -Debridement, SubQ, ea addt'l 20sq cm 2 2 or part thereof Pain Scale: 0-10 Numeric Is Patient Pain Free? Yes Yes WC - Nurse 3 - General Ulcer D/C NN Start: 01/15/20 13:34 Freq: Status: Active Protocol: Activity Type Activity Date Activity User E-Sign Co-Sign Detail Recorded Client Recorded Date Recorded By Document 01/15/20 14:16 [facility] [id number] 01/15/20 14:17 [facility] Document 01/29/20 13:14 MW [id number] 01/29/20 13:15 MW 01/15/20 01/29/20 14:16 13:14 Wound Care Nurse 3 #9 Lower Lumbar- Midline -Ulcer Cleansing Rinsed/ Rinsed/ Irrigated with Irrigated with Saline Saline -Foul Odor after Cleansing No No -Negative Pressure Wound Therapy N/A -Primary Dressing Applied Aquacel Extra Aquacel Extra -Primary Dressing Covered/Secured with Secured with Dry Gauze Tape,Other -Other Covering abd abd pads, drape -Aquacel Extra 1 1 Treatment Response Procedure Tolerated Well Pain Scale: 0-10 Numeric Is Patient Pain Free? Yes Teaching: Wound Center Dressing Your Wound -Person Taught Patient,Family -Teaching Method Discussion, Demonstration -Response to teaching Verbalize understanding WC - Visit Discharge Discharge Condition Stable Stable Ambulatory Status Ambulatory,Cane Ambulatory,Cane Transportation Private Auto Private Auto Accompanied by Medication Reconcilliation completed & No provided to patient/care provider Clinical Summary of Care Provided Yes Wound debrided: lower lumbar midline Laterality: Not Applicable Type of Debridement: Excisional debridement Anesthesia Used: 4% Lidocaine Solution Depth: Down to and including healthy tissue, in the subcutaneous layer, to muscle Percentage of wound debrided: 100 Instrument Used: 7mm curette Tissue Removed: Yellow slough, devitalized tissue Severity: Fat Layer Exposed Amount of bleeding with debridement: Moderate Bleeding Controlled with: Compression and gauze Patient tolerated procedure well Assessment/Plan Active Problems (Last Reviewed 08/21/19 @ 10:[address] Micky Mauro MD) Non-healing surgical wound (Chronic) Open wound of lumbar region with complication (Chronic) h/o osteomyelitis and is chronic nonhealing surgical wound s/p lumbar decompression surgery Assessment: 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 malnutrition. other multiple comorbidities. edema bilateral lower extremities. venous insufficiency. immunocompromised status. Plan: Evaluated and debrided his lumbar wound. There continues to be mild improvement in his wound. Will continue to alternate dressings with Aquacel and acetic acid to his back wound. Wound culture taken today and will treat based on results. Will cover with KerraMaxCare or ABDs and wound drape with changes once daily for heavy amount of drainage of his lumbar wound. Continue increased protein intake. F/U in [address] Wick.
== END 2020-02-03 23:59 ==
LOC: WC 12:30
PROVIDERS: Family Provider Family Medicine; PCP Family Medicine; Referring Provider Family Medicine; Visit Provider Family Medicine
DX: T81.31XA Disruption of external operation (surgical) wound, not elsewhere classified, initial encounter (principal); S31.000A Unspecified open wound of lower back and pelvis without penetration into retroperitoneum, initial encounter; I87.2 Venous insufficiency (chronic) (peripheral); R60.0 Localized edema; Z79.01 Long term (current) use of anticoagulants; Z79.899 Other long term (current) drug therapy
CPT/HCPCS: 11042; 11045; 87070; 87075; 87077; 87186; 87205

== ENCOUNTER 2020-02-26 13:00 | Outpatient (RCR) | payer MEDICARE, OTHER, SELFPAY ==
[2015-10-31 10:00] VITALS: BMI 34.9
[2020-02-04 00:26] VITALS: BP 110/53; PULSE 95; RESP 18; TEMP 36.1
[2020-02-26 13:01] VITALS: BP 151/85; PULSE 114; RESP 18; TEMP 36.1; BMI 28.9
--- NOTE | 2020-02-26 15:41 | PCM.WC.PN ---
(1) Non-healing surgical wound Status: Chronic Qualifiers: Encounter type: subsequent encounter Code(s): T81.89XA - Other complications of procedures, not elsewhere classified, initial encounter (2) Open wound of lumbar region with complication Status: Chronic Code(s): S31.000A - Unspecified open wound of lower back and pelvis without penetration into retroperitoneum, initial encounter Comment: h/o osteomyelitis and is chronic nonhealing surgical wound s/p lumbar decompression surgery Type of Wound Date of Service: 02/26/20 Chief Complaint: Nonhealing surgical wound of lower back History of Wound: Mr. Marshall is a 73-yo who has been seen here at the wound center for a nonhealing surgical wound of his lower back s/p surgical debridement for an abscess s/p lumbar spine surgery. His original surgery on his lower back was approximately 2016 and he has had multiple complications since that time. He underwent surgical debridement on 03/04/[address] Davila at [facility] in [place] and was discharged with a wound vac for healing by secondary intention with possible muscle flap closure in the future. He followed up with his surgeon on 04/18/17 for further evaluation and recommendations and they plan to close the wound with a muscle flap but he continues to develop infections. He is also being seen by Infectious Disease as needed. CT 02/2018 did not show any abscess. Progress of Wound: Cuong is here for follow-up of his nonhealing surgical wound of his lower back. His reports same amount of drainage as previous, drainage is very heavy. Denies pain or odor. He has been tolerating Aquacel alternating with acetic acid dressings to his back. Triamcinolone cream has helped with the irritation of the periwound area. He continues to have very heavy drainage from his lumbar surgical wound. He has had 10 applications of Purapply to his lower back wound with mild improvement which were completed 03/21/2018. Cuong saw the surgeon at [facility] on August 27, 2018 and he does not think a skin flap would be an option but talked about doing a skin graft from his thigh to the lower back. He has been having increased pain in his back and left leg presumably from nerve impingement. Denies increased drainage, fever or chills. - Physical Exam Vital Signs Temp Pulse Resp BP 96.9 F L 114 H 18 151/85 H 02/26/20 13:01 02/26/20 13:01 02/26/20 13:01 02/26/20 13:01 General: Alert, Oriented x3, Cooperative, No apparent distress HEENT: Atraumatic, Normocephalic Oral: Moist Mucosa Skin: Ulcer/ Wound Wound Measurements and Assessment - Nurse 1 - General Ulcer Measurement Start: 02/26/20 13:01 Freq: Status: Active Protocol: Activity Type Activity Date Activity User E-Sign Co-Sign Detail Recorded Client Recorded Date Recorded By Document 02/26/20 13:01 [facility] [id number] 02/26/20 13:12 BMF 02/26/20 13:01 Wound Center Nurse 1 [Ulcer Assessment] #9 Lower Lumbar- Midline -Combined with other wound No -Current Size (cm) - Length 12.5 -Current Size (cm) - Width 3.7 -Current Size (cm) - Depth 0.1 -Total Square Cm 46.25 -Photo Taken No -Epithelialization None Present -Tunneling No -Undermining/Tunneling No -Circular Undermining No -Exudate Amt Large -Exudate Type Serosanguineous -Wound Margin Distinct, Outline Attached -Granulation Amt Small (1-33%) -Granulation Quality [place] -Slough/Fibrin Yes -Necrosis Amt Large (67-100%) -Necrotic Tissue Type Adherent Slough -Texture (Uma-wound Skin Appearance) Assessed, Scarring -Moisture (Uma-wound Skin Appearance Assessed ) -Color (Uma-wound Skin Appearance) Assessed -Temperature (Uma-wound Skin No Abnormality Appearance) (Pt Warm) -Tenderness on Palpation (Uma-wound No Skin Appearance) -Ulcer Cleansing soapy water -Foul Odor after Cleansing No -Anesthetic Used 4% Lidocaine Solution - Nurse 2 - General Ulcer CM Notes Start: 02/26/20 13:01 Freq: Status: Active Protocol: Activity Type Activity Date Activity User E-Sign Co-Sign Detail Recorded Client Recorded Date Recorded By Document 02/26/20 01:20 MW [id number] 02/26/20 13:45 MW 02/26/20 01:20 Wound Center Nurse 2 [Procedure/Treatment] -Time 01:20 -Correct Patient Yes -Correct Side, Site, Position Yes -Correct Procedure Yes -Procedure Performed Yes -Type of Procedure Debridement -Clinical Debridement Subcutaneous -Tissue Removed Subcutaneous -Post Debridement (cm) - Length 11.5 -Post Debridement (cm) - Width 3.0 -Post Debridement (cm) - Depth 0.2 -Total Square (Post) (cm) 34.50 -Area of Debridement (cm) - Length 11.5 -Area of Debridement (cm) - Width 3.0 -Total Square (Area) (cm) 34.50 -Tunneling No -Undermining/Tunneling No -Circular Undermining No -Wound/Ulcer Outcome Not Healed -Ulcer Cleansing Rinsed/ Irrigated with Saline -Foul Odor after Cleansing No -Bioengineered Tissue No -Bleeding Controlled with Pressure, SURGIFOAM -Offloading No -Debridement - Subq, 1st 20sq cm Yes -Debridement, SubQ, ea addt'l 20sq cm 1 or part thereof [See Physician Procedure note for Specifics] Pain Scale: 0-10 Numeric [Pain] -Is Patient Pain Free? Yes - Nurse 3 - General Ulcer D/C NN Start: 02/26/20 13:01 Freq: Status: Active Protocol: Activity Type Activity Date Activity User E-Sign Co-Sign Detail Recorded Client Recorded Date Recorded By Document 02/26/20 13:36 [facility] [id number] 02/26/20 13:37 [facility] 02/26/20 13:36 Wound Care Nurse 3 [Wound Dressing] #9 Lower Lumbar- Midline -Ulcer Cleansing Rinsed/ Irrigated with Saline -Foul Odor after Cleansing No -Primary Dressing Applied Aquacel Extra -Primary Dressing Covered/Secured Secured with with Tape,Other -Other Covering abd pads, drape -Aquacel Extra 1 [Post Procedure Tolerated] -Treatment Response Procedure Tolerated Well Pain Scale: 0-10 Numeric [Pain] -Is Patient Pain Free? Yes - Visit Discharge [Visit Discharge Information] -Discharge Condition Stable -Ambulatory Status Ambulatory,Cane -Transportation Private Auto -Accompanied by Psych/Mental Status: Normal Affect, Appropriate Debridement Note Post-Debridement Measurements/Treatment - Nurse 2 - General Ulcer CM Notes Start: 02/26/20 13:01 Freq: Status: Active Protocol: Activity Type Activity Date Activity User E-Sign Co-Sign Detail Recorded Client Recorded Date Recorded By Document 02/26/20 01:20 MW [id number] 02/26/20 13:45 MW 02/26/20 01:20 Wound Center Nurse 2 #9 Lower Lumbar- Midline -Time 01:20 -Correct Patient Yes -Correct Side, Site, Position Yes -Correct Procedure Yes -Procedure Performed Yes -Type of Procedure Debridement -Clinical Debridement Subcutaneous -Tissue Removed Subcutaneous -Post Debridement (cm) - Length 11.5 -Post Debridement (cm) - Width 3.0 -Post Debridement (cm) - Depth 0.2 -Total Square (Post) (cm) 34.50 -Area of Debridement (cm) - Length 11.5 -Area of Debridement (cm) - Width 3.0 -Total Square (Area) (cm) 34.50 -Tunneling No -Undermining/Tunneling No -Circular Undermining No -Wound/Ulcer Outcome Not Healed -Ulcer Cleansing Rinsed/ Irrigated with Saline -Foul Odor after Cleansing No -Bioengineered Tissue No -Bleeding Controlled with Pressure, SURGIFOAM -Offloading No -Debridement - Subq, 1st 20sq cm Yes -Debridement, SubQ, ea addt'l 20sq cm 1 or part thereof Pain Scale: 0-10 Numeric Is Patient Pain Free? Yes - Nurse 3 - General Ulcer D/C NN Start: 02/26/20 13:01 Freq: Status: Active Protocol: Activity Type Activity Date Activity User E-Sign Co-Sign Detail Recorded Client Recorded Date Recorded By Document 02/26/20 13:36 [facility] [id number] 02/26/20 13:37 [facility] 02/26/20 13:36 Wound Care Nurse 3 #9 Lower Lumbar- Midline -Ulcer Cleansing Rinsed/ Irrigated with Saline -Foul Odor after Cleansing No -Primary Dressing Applied Aquacel Extra -Primary Dressing Covered/Secured with Secured with Tape,Other -Other Covering abd pads, drape -Aquacel Extra 1 Treatment Response Procedure Tolerated Well Pain Scale: 0-10 Numeric Is Patient Pain Free? Yes WC - Visit Discharge Discharge Condition Stable Ambulatory Status Ambulatory,Cane Transportation Private Auto Accompanied by Wound debrided: lower lumbar midline Laterality: Not Applicable Type of Debridement: Excisional debridement Anesthesia Used: 4% Lidocaine Solution Depth: Down to and including healthy tissue, in the subcutaneous layer Percentage of wound debrided: 100 Instrument Used: 5mm curette Tissue Removed: Yellow slough, devitalized tissue Severity: Fat Layer Exposed Amount of bleeding with debridement: Mild Bleeding Controlled with: Compression and gauze Patient tolerated procedure well Assessment/Plan Assessment: 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 malnutrition. other multiple comorbidities. edema bilateral lower extremities. venous insufficiency. immunocompromised status. Plan: Evaluated and debrided his lumbar wound. There continues to be mild improvement in his wound. Will continue to alternate dressings with Aquacel and acetic acid to his back wound. Wound culture taken today and will treat based on results. Will cover with KerraMaxCare or ABDs and wound drape with changes once daily for heavy amount of drainage of his lumbar wound. Continue increased protein intake. F/U in [address] Wick.
== END 2020-03-05 23:59 ==
LOC: WC 13:00
PROVIDERS: Family Provider Family Medicine; PCP Family Medicine; Referring Provider Family Medicine; Visit Provider Family Medicine
DX: T81.31XA Disruption of external operation (surgical) wound, not elsewhere classified, initial encounter (principal); S31.000A Unspecified open wound of lower back and pelvis without penetration into retroperitoneum, initial encounter; Y83.9 Surgical procedure, unspecified as the cause of abnormal reaction of the patient, or of later complication, without mention of misadventure at the time of the procedure; Y92.9 Unspecified place or not applicable; I87.2 Venous insufficiency (chronic) (peripheral); R60.0 Localized edema; Z79.899 Other long term (current) drug therapy
CPT/HCPCS: 11042; 11045

== ENCOUNTER 2020-03-11 08:02 | Outpatient (RCR) | payer MEDICARE, OTHER, SELFPAY ==
[2015-10-31 10:00] VITALS: BMI 34.9
[2020-03-06 00:17] VITALS: BP 151/85; PULSE 114; RESP 18; TEMP 36.1
[2020-03-10 13:08] VITALS: BMI 31.9
== END 2020-04-04 23:59 ==
LOC: WC 08:02
PROVIDERS: Family Provider Family Medicine; PCP Family Medicine; Referring Provider Family Medicine; Visit Provider Family Medicine
DX: Z09 Encounter for follow-up examination after completed treatment for conditions other than malignant neoplasm (principal)

== ENCOUNTER 2020-03-14 07:38 | Inpatient (IN) | payer MEDICARE, OTHER, SELFPAY ==
[2015-10-31 10:00] VITALS: BMI 34.9
[2020-03-10 13:08] VITALS: BMI 31.9
[2020-03-14] VITALS (24 sets, daily range): BP systolic 97–158; BP diastolic 60–97; PULSE 122–146; RESP 18–38; TEMP 36.6–38.6; O2SAT 89–99; BMI 33.6; BMI 33.5
--- NOTE | 2020-03-14 07:50 | ED.RN ---
PT IS VERY RUDE AND SHORT WITH STAFF.
--- NOTE | 2020-03-14 08:03 | ED.RN ---
IV ATTEMPTED IN RIGHT FOREARM. SOME BLOOD DRAWN. PT WHILE DRAWING BLOOD PT STATES YOU GUYS ARE COMING AT ME TOO FAST. CALL MY . YOU NEED TO TURN THE HEAT UP. PT MOVED HIS ARM AND THE IV PULLED OUT
--- NOTE | 2020-03-14 08:15 | EKG12_ITS ---
Test Reason : SOB Blood Pressure : / mmHG Vent. Rate : 140 BPM Atrial Rate : 140 BPM P-R Int : 128 ms QRS Dur : 138 ms QT Int : 312 ms P-R-T Axes : 103 -62 090 degrees QTc Int : 476 ms Sinus tachycardia Right bundle branch block Left anterior fascicular block Bifascicular block Abnormal ECG Confirmed by SAMMIE HAYES, NICKY ([id number]), industrial editor MADDISON ROSA ([id number]) on 03/16/2020 8:53:32 AM Referred By: EFRAIN Confirmed By:NICKY COCHRAN MD
--- NOTE | 2020-03-14 08:16 | ED.DCSUM_ITS ---
History of Present Illness Chief Complaint: Shortness of Breath Informant: Patient Onset: Days - couple Activity at onset: - - gradual onset Timing: Continuous Quality: - - short of breath Current Severity: Moderate Maximum Severity: Severe Worsened by: Coughing, Exertion Relieved by: Oxygen - here in ER, Rest Associated Symptoms: Clear sputum, Cough Chest Pain: None Narrative: 74-year-old male has been sick with chills, cough, gradually worsening shortness of breath over the last couple days. When asked about his medical history a lot of medical problems but not able to discuss specifics. He states he is on Eliquis. No history of COPD. Lives with his who is not ill. Patient presents during the national coronavirus emergency declaration/pandemic. He denies any known contact with anyone infected with COVID-19. He denies traveling out of the immediate area recently. - Past Medical History (1) Chronic combined systolic and diastolic CHF (congestive heart failure) Status: Chronic (2) Essential (primary) hypertension Status: Chronic (3) Hepatic cirrhosis Status: Chronic (4) History of non-Hodgkin's lymphoma Status: Chronic (5) Hypergammaglobulinemia Status: Chronic (6) Hyperlipidemia Status: Chronic (7) Iron deficiency anemia Status: Chronic (8) PSVT (paroxysmal supraventricular tachycardia) Status: Chronic (9) Paroxysmal atrial fibrillation Status: Chronic (10) Recurrent deep vein thrombosis (DVT) Status: Chronic (11) Secondary pulmonary arterial hypertension Status: Chronic Past Medical History - Allergies and Home Meds Allergies/Adverse Reactions: Allergies chlorthalidone Allergy (Verified 03/14/20 07:40) Unknown ramipril [From Altace] Allergy (Verified 03/14/20 07:40) Unknown sulfamethoxazole [From Bactrim] Allergy (Verified 03/14/20 07:40) Other trazodone Allergy (Verified 03/14/20 07:40) Unknown trimethoprim [From Bactrim] Allergy (Verified 03/14/20 07:40) Other prednisone Adverse Reaction (Verified 03/14/20 07:40) Swelling only in big doses Surgical History: colectomy - Partial., - - Splenectomy, Ileostomy reversal, L4- 5 discectomy. Wound debridement 03/04/2017, 05/14/2017 at [facility]> Lives: Spouse/ Significant Other Smoking Status: Current every day smoker Alcohol: Occasional - 3 shots of vodka per day usually - Family History Maternal Family History: Family History (Last Reviewed 03/10/20 @ 13:[address] Micky Mauro MD) Father Diabetes Heart disease Mother Heart disease Family History: Reports: Heart Disease Paternal Family History: Family History (Last Reviewed 03/10/20 @ 13:[address] Micky Mauro MD) Father Diabetes Heart disease Mother Heart disease Family History: Reports: Diabetes Review of Systems General: Reports: Chills, Malaise. Denies: Fever Eyes: Denies: Visual changes - bilaterally, Diplopia ENT: Denies: Bilateral ear pain, Rhinorrhea, Sore throat Cardiovascular: Denies: Chest pain, Palpitations Respiratory: Reports: Dyspnea, Cough, Sputum - phlegm nonbloody Gastrointestinal: Reports: Nausea, Vomiting. Denies: Abdominal pain, Diarrhea, Melena, Hematochezia Genitourinary: Denies: Dysuria, Hematuria, Frequency Musculoskeletal: Reports: Myalgias, Back pain - chronic, unchanged, Swelling - chronic BLE, unchanged. Denies: Neck pain, Extremity Pain Skin: Reports: Wounds - back chronic. Denies: Rash Neurological: Denies: Headache, Weakness, Numbness Physical Exam Vital Signs/Narrative: Vital Signs Temp Pulse Resp BP Pulse Ox 03/14/20 07:44 144 H 38 H 03/14/20 07:41 99.8 F H 144 H 25 H 158/97 H 89 Inital Vital Signs reviewed: Yes General: Well nourished, Well developed, No Acute Distress Head: Normocephalic, Atraumatic Eyes: Perrl, EOMI ENT: Moist mucous membranes, No rhinorrhea Neck: Supple, Nontender, No lymphadenopathy, No JVD Cardiovascular: No murmurs, Irregular, Tachycardia Respiratory: No distress, Chest nontender, Rales - left Abdomen: Soft, Nontender, Nondistended, Normal bowel sounds Back: Nontender, Normal Inspection. Negative for: CVA tenderness Extremities: Nontender, Edema - BLE 1-2+, symmetric, w/ dark discoloration c/w stasis dermatitis; no induration or tenderness. Negative for: Calf Tenderness Skin: Normal color, No rash Neurological: Alert, Oriented x3, Cranial nerves II-XII grossly intact, Normal Strength, Normal Sensation Psychological: Normal affect, Normal Mood Diagnostic/Tx/Re-eval Impressions Chest X-Ray 03/14/20 09:05 IMPRESSION: Lingular consolidation. Radiographic follow-up is recommended. Electronically Signed: Shen Echeverria, at 9:46 EST , Service support , 03/14/20 09:05 Chest 1 View (Portable) [RAD] Stat Laboratory Results 03/14/20 03/14/20 03/14/20 08:25 08:25 08:25 WBC 14.4 H RBC 2.84 L Hgb 10.5 L Hct 32.2 L MCV 113.4 H MCH 37.0 H MCHC 32.6 RDW Std Deviation 76.2 H RDW Coeff of Reggie 18.6 H Plt Count 274 MPV 10.2 Immature Gran % (Auto) 0.600 Neut % (Auto) 88.1 H Lymph % (Auto) 2.6 L [place] % (Auto) 8.6 Eos % (Auto) 0.0 Baso % (Auto) 0.1 Absolute Neuts (auto) 12.6 H Absolute Lymphs (auto) 0.37 L Nucleated RBC % 0.1 Platelet Estimate ADEQUATE Polychromasia RARE Hypochromasia 1+ Anisocytosis 1+ Macrocytosis 2+ PT 21.5 H INR 1.9 APTT 39.1 H Sodium 136 Potassium 4.3 Chloride 101 Carbon Dioxide 27.0 Anion Gap 8 BUN 71 H Creatinine 2.94 H Estim Creat Clear Calc 21.00 Est GFR (MDRD) Af Amer 27 L Est GFR (MDRD) Non-Af 22 L BUN/Creatinine Ratio 24.1 H Glucose 123 H Lactic Acid Calcium 8.8 Total Bilirubin 0.80 AST 26 ALT 17 Alkaline Phosphatase 96 Troponin I 0.197 H B-Natriuretic Peptide Total Protein 8.6 H Albumin 2.3 L Globulin 6.3 H Albumin/Globulin Ratio 0.4 L Urine Color Urine Clarity Urine pH Ur Specific [place] Urine Protein Urine Glucose (UA) Urine Ketones Urine Occult Blood Urine Nitrite Urine Bilirubin Urine Urobilinogen Ur Leukocyte Esterase 03/14/20 03/14/20 03/14/20 08:25 08:25 09:25 WBC RBC Hgb Hct MCV MCH MCHC RDW Std Deviation RDW Coeff of Reggie Plt Count MPV Immature Gran % (Auto) Neut % (Auto) Lymph % (Auto) [place] % (Auto) Eos % (Auto) Baso % (Auto) Absolute Neuts (auto) Absolute Lymphs (auto) Nucleated RBC % Platelet Estimate Polychromasia Hypochromasia Anisocytosis Macrocytosis PT INR APTT Sodium Potassium Chloride Carbon Dioxide Anion Gap BUN Creatinine Estim Creat Clear Calc Est GFR (MDRD) Af Amer Est GFR (MDRD) Non-Af BUN/Creatinine Ratio Glucose Lactic Acid 2.0 Calcium Total Bilirubin AST ALT Alkaline Phosphatase Troponin I B-Natriuretic Peptide 2666.1 H Total Protein Albumin Globulin Albumin/Globulin Ratio Urine Color Yellow Urine Clarity Clear Urine pH 5.0 Ur Specific [place] 1.015 Urine Protein 30 H Urine Glucose (UA) Normal Urine Ketones 5 H Urine Occult Blood 25 H Urine Nitrite Negative Urine Bilirubin Negative Urine Urobilinogen Normal Ur Leukocyte Esterase 25 H - Rhythm Strip Rhythm Strip: Sinus Tach Rate: 130 Ectopy: PAC(s) - EKG Initial EKG Interpretation: No Acute Injury Pattern, Sinus Tachycardia, RBBB, LAFB, - - nonconducted PAC Prior: Unchanged Treatment - Dyspnea: Oxygen, Albuterol Repeat Evaluation: Improved - Medical Decision Making Patient has a lobar pneumonia, meets criteria for severe sepsis. Clinically he looks ill, but is 93% on 2 L nasal cannula. His Covid test is pending as he presents during the pandemic. He has BRIANA and is given a little bit of IV fluid, I did not make him worse although his BNP came back very elevated, which also may be related to his renal insufficiency. His troponin is nonspecifically elevated, I suspect due to subendocardial injury due to hypoxemia, as is EKG shows no acute injury pattern. His x-ray looks more like pneumonia, as does his clinical picture, then acute decompensated congestive heart failure. Plan is for admission to PCU assuming his Covid comes back negative. COVID-19 test returned negative. Patient was given oral hydromorphone since that is what I take for my chronic back pain. ED Disposition - Plan for ED Patient: Disposition: [facility] Diagnosis: Sepsis due to pneumonia, Acute kidney injury, Chronic combined systolic and diastolic CHF (congestive heart failure), Hypoxemia, Elevated troponin
[2020-03-14] MEDS: Albuterol 2.5 MG/3 ML VIAL.NEB. INHALATION ×2 (08:30→19:35)
[2020-03-14] MEDS: Acetaminophen 325 MG Tablet 650 MG PO ×2 (08:45→18:35)
[2020-03-14] MEDS: Ondansetron 4 MG/2 ML Vial IV (08:45)
[2020-03-14 08:48] LABS: Absolute Lymphocyte Count 0.37 X10^3/uL (0.83-4.51); Absolute Neutrophil Count 12.6 X10^3/uL (2.0-7.7); Basophil# 0.02 X10^3/uL; Basophil% 0.1 % (0-1); Hematocrit 32.2 % (40-54); Hemoglobin 10.5 g/dL (13.0-16.5); Lymphocyte # 0.37 X10^3/ul (4.0); Lymphocyte % 2.6 % (19-41); Mean Corp Hgb Conc 32.6 g/dL (32-36); Mean Corpuscular Volume 113.4 fL (80-94); Mean Platelet Vol. 10.2 fl (6.2-12.0); Monocyte# 1.23 X10^3/uL; Monocyte% 8.6 % (0-10); NRBC Flagged by Analyzer 0.1 % (0-5); Neutrophil # 12.64 X10^3/uL (2.7-7.7); Neutrophil % 88.1 % (47-70); POSITIVE DIFFERENTIAL YES; POSITIVE MORPHOLOGY YES; Platelet Count 274 K/mm3 (150-450); RBC Distribution Width CV 18.6 % (11.6-14.6); RBC Distribution Width SD 76.2 fl (35.1-43.9); Red Blood Count 2.84 M/mm3 (4.6-6.2); White Blood Count 14.4 K/mm3 (4.4-11.0)
[2020-03-14 08:49] LABS: Differential Indicated SCAN CRITERIA MET
--- NOTE | 2020-03-14 08:51 | ED.RN ---
pt continues to be irritable and complain about anything staff needs to do regarding his care.
[2020-03-14 09:04] LABS: International Normalized Ratio 1.9; Prothrombin Time (Protime)PT. 21.5 SECONDS (11.7-14.9)
[2020-03-14 09:05] LABS: Partial Thromboplast Time 39.1 Seconds (24.1-36.2)
--- NOTE | 2020-03-14 09:05 | RAD_ITS ---
STUDY: X-RAY CHEST REASON FOR EXAM: Male, 74 years old. SHORT OF BREATH X A COUPLE DAYS, PRODUCTIVE COUGH TECHNIQUE: Single AP portable view of the chest. COMPARISON: Comparison is made with prior study dated 04/21/2019. FINDINGS: EKG electrodes are seen. The now with evidence of consolidation in the lingular segment of the left upper lobe. Radiographic follow-up is recommended. Stable mild increased markings at the right lung base suggestive of scarring. Stable elevation of the right hemidiaphragm. Normal size heart. Normal mediastinum and raquel. Normal visualized pulmonary arteries. There is atherosclerotic calcification of the aortic arch with tortuosity. There are diffuse degenerative changes of the visualized thoracic spine. Normal visualized ribs, clavicles, and shoulders. There is no demonstrated abnormality of the visualized soft tissue structures of the upper abdomen. RAD/Chest 1 View (Portable) IMPRESSION: Lingular consolidation. Radiographic follow-up is recommended. Electronically Signed: Shen Echeverria, at 9:46 EST , Service support ,
[2020-03-14 09:11] LABS: ALB/GLOB Ratio 0.4 RATIO (0.9-2.4); AST(SGOT) 26 U/L (15-37); Alanine Aminotransfer ALT/SGPT 17 U/L (16-61); Albumin, Serum 2.3 g/dL (3.2-5.0); Alkaline Phosphatase 96 U/L (45-117); Anion Gap 8 (5-15); BUN 71 mg/dL (7-18); BUN/Creat Ratio 24.1 RATIO (10-20); Calcium,Total 8.8 mg/dL (8.5-10.1); Chloride 101 mmol/L (98-107); Creatinine, Serum 2.94 mg/dL (0.70-1.30); EST Glomerular Filtration Rate 22 mL/min (>60); Est Glom Filt Rate - Afr Amer 27 mL/min (>60); Globulin 6.3 g/dL (2.2-4.2); Glucose 123 mg/dL (74-106); Potassium 4.3 mmol/L (3.5-5.1); Protein, Total 8.6 g/dL (6.4-8.2); Sodium Level 136 mmol/L (136-145)
[2020-03-14 09:17] LABS: Anisocytosis 1+; Hypochromasia 1+; Macrocytosis 2+; Platelet Estimate ADEQUATE (ADEQ); Polychromasia RARE
[2020-03-14 09:34] LABS: Mucous, Urine 0 SEEN /hpf (<or=2+)
[2020-03-14] MEDS: Ceftriaxone 1 GM/50 ML BAG IV (09:46)
[2020-03-14 09:47] LABS: Color, Urine Yellow (Yellow); Glucose, Dipstick Normal (Normal); Ketone-Dipstick 5 mg/dl (Negative); Leukocyte Esterase-Dipstick 25 /ul (Negative); Nitrite-Dipstick Negative (Negative); Occult Blood-Urine 25 /ul (Negative); Protein-Dipstick 30 mg/dl (Negative); Specific Gravity, Urine 1.015 (1.002-1.030); Urine Bilirubin Dipstick Negative (Negative); Urine Clarity Clear (Clear); Urine Urobilinogen Normal (Normal)
[2020-03-14 09:55] LABS: Bacteria 1+ /hpf (None Seen); Red Blood Cells-Urine 0-5 SEEN /hpf (0-5); Squamous Epithelial Cells - UA 0-5 SEEN /hpf (0-5); White Blood Cells 0-5 SEEN /hpf (0-5)
[2020-03-14] MEDS: HYDROmorphone 2 MG TABLET PO (10:42)
[2020-03-14 12:36] LABS: Reflex Lactate? Y
[2020-03-14] MEDS: Ceftriaxone 1 GM/50 mL Premix x1 IV (13:09)
[2020-03-14] MEDS: Metoprolol(XL)Succ 50 MG Tablet PO (13:09)
[2020-03-14] MEDS: Furosemide 40 MG Tablet PO (13:09)
[2020-03-14] MEDS: 0.9% Saline Lock 10 ML Syringe IV (13:12)
[2020-03-14 13:38] LABS: Lactic Acid 1.5 mmol/L (0.4-1.9)
--- NOTE | 2020-03-14 14:15 | PCM.HP.STD ---
Problem List (1) Sepsis due to pneumonia Status: Acute (2) Acute kidney injury Status: Acute (3) Hypoxemia Status: Acute (4) Elevated troponin Status: Acute (5) Paroxysmal atrial fibrillation Status: Chronic (6) Right ventricular dilation Status: Chronic (7) Right ventricular systolic dysfunction Status: Chronic (8) Non-ischemic cardiomyopathy Status: Chronic (9) PSVT (paroxysmal supraventricular tachycardia) Status: Chronic (10) Chronic combined systolic and diastolic CHF (congestive heart failure) Status: Chronic (11) Secondary pulmonary arterial hypertension Status: Chronic (12) Right bundle branch block (RBBB) Status: Chronic (13) Essential (primary) hypertension Status: Chronic (14) Hyperlipidemia Status: Chronic Qualifiers: Hyperlipidemia type: unspecified Qualified Code(s): E78.5 - Hyperlipidemia, unspecified (15) Hepatic cirrhosis Status: Chronic (16) History of non-Hodgkin's lymphoma Status: Chronic (17) Hypergammaglobulinemia Status: Chronic (18) Iron deficiency anemia Status: Chronic Qualifiers: Iron deficiency anemia type: unspecified iron deficiency Qualified Code(s): D50.9 - Iron deficiency anemia, unspecified (19) Plasma cell dyscrasia Status: Chronic (20) EtOH dependence Status: Chronic (21) Non-healing surgical wound Status: Chronic Qualifiers: Encounter type: subsequent encounter Qualified Code(s): T81.89XD - Other complications of procedures, not elsewhere classified, subsequent encounter (22) Open wound of lumbar region with complication Status: Chronic Comment: h/o osteomyelitis and is chronic nonhealing surgical wound s/p lumbar decompression surgery (23) Recurrent deep vein thrombosis (DVT) Status: Chronic History of Present Illness Date of Admission: 03/14/20 Chief Complaint: Shortness of breath. The patient is a 74 year old M who presents emergency room due to shortness of breath. Patient states he began having shortness of breath approximately 3 days ago. He states it is worsened since that time. Patient not forthcoming during HPI, answers questioning briefly. Denies exposure to sick contacts. Reports cough with occasional production of sputum. Reports intermittent fever at home. Lives with his at home who he states is not ill. He does not wear oxygen at home. Denies underlying lung disease. Reports associated fatigue, weakness. Denies nausea, vomiting, diarrhea. Denies other associated complaints. He has a past medical history of non-Hodgkin's lymphoma, hypertension, hyperlipidemia, nonischemic cardiomyopathy, paroxysmal atrial fibrillation/paroxysmal SVT, chronic anemia, history of DVT/PE, chronic alcoholism, chronic kidney disease stage III. Past Medical History Past Medical History (Chronic Problems): Chronic Problems (Last Reviewed 03/10/20 @ 13:[address] Micky Mauro MD) Paroxysmal atrial fibrillation (Chronic) Right ventricular dilation (Chronic) Right ventricular systolic dysfunction (Chronic) Non-ischemic cardiomyopathy (Chronic) PSVT (paroxysmal supraventricular tachycardia) (Chronic) Chronic combined systolic and diastolic CHF (congestive heart failure) (Chronic) Secondary pulmonary arterial hypertension (Chronic) Right bundle branch block (RBBB) (Chronic) Essential (primary) hypertension (Chronic) Hyperlipidemia (Chronic) Hepatic cirrhosis (Chronic) History of non-Hodgkin's lymphoma (Chronic) Hypergammaglobulinemia (Chronic) Iron deficiency anemia (Chronic) Plasma cell dyscrasia (Chronic) EtOH dependence (Chronic) Non-healing surgical wound (Chronic) Open wound of lumbar region with complication (Chronic) h/o osteomyelitis and is chronic nonhealing surgical wound s/p lumbar decompression surgery Recurrent deep vein thrombosis (DVT) (Chronic) Medical History: Medical History (Last Reviewed 03/10/20 @ 13:[address] Micky Mauro MD) Paroxysmal atrial fibrillation (Chronic) I48.0 Right ventricular dilation (Chronic) I51.7 Right ventricular systolic dysfunction (Chronic) I51.9 Non-ischemic cardiomyopathy (Chronic) I42.8 PSVT (paroxysmal supraventricular tachycardia) (Chronic) I47.1 Chronic combined systolic and diastolic CHF (congestive heart failure) (Chronic) I50.42 Secondary pulmonary arterial hypertension (Chronic) I27.21 Right bundle branch block (RBBB) (Chronic) I45.10 Essential (primary) hypertension (Chronic) I10 Hyperlipidemia (Chronic) E78.5 Hepatic cirrhosis (Chronic) K74.60 History of non-Hodgkin's lymphoma (Chronic) Z85.72 Hypergammaglobulinemia (Chronic) D89.2 Iron deficiency anemia (Chronic) D50.9 Plasma cell dyscrasia (Chronic) E88.09 EtOH dependence (Chronic) F10.20 Non-healing surgical wound (Chronic) T81.89XA Open wound of lumbar region with complication (Chronic) S31.000A h/o osteomyelitis and is chronic nonhealing surgical wound s/p lumbar decompression surgery Recurrent deep vein thrombosis (DVT) (Chronic) I82.409 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 G06.1 Acute kidney injury superimposed on chronic kidney disease N17.9, N18.9 Ascites R18.8 Candidal dermatitis B37.2 Cellulitis and abscess of trunk L03.319, L02.219 Chronic kidney disease N18.9 Chronic ulcer of right leg with fat layer exposed L97.912 Contracture, right foot M24.574 Gout M10.9 History of alcohol consumption Z87.898 History of diverticulitis Z87.19 Hyperammonemia E72.20 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 for treatment of lymphoma Low testosterone in male R79.89 Lumbar disc disease M51.9 Lymphedema I89.0 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 of necrosis L98.496 nonhealing ulcer lumbar back area MARY JANE (obstructive sleep apnea) G47.33 Osteomyelitis of lumbar spine M46.26 Peripheral vascular disease I73.9 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 I83.025, L97.529 Venous stasis ulcer of heel with fat layer exposed I83.004, L97.402 Elevated troponin R79.89 History of pulmonary embolus (PE) Onset Date: 2004 Z86.711 Pericardial effusion I31.3 Aortic root dilatation I77.810 Ascending aorta dilatation I77.810 Acute on chronic diastolic (congestive) heart failure (Inactive) I50.33 Acute on chronic systolic (congestive) heart failure (Inactive) I50.23 Edema of lower extremity R60.0 Hepatic encephalopathy K72.90 Pulmonary embolism (Inactive) I26.99 Allergies chlorthalidone Allergy (Verified 03/14/20 07:40) Unknown ramipril [From Altace] Allergy (Verified 03/14/20 07:40) Unknown sulfamethoxazole [From Bactrim] Allergy (Verified 03/14/20 07:40) Other trazodone Allergy (Verified 03/14/20 07:40) Unknown trimethoprim [From Bactrim] Allergy (Verified 03/14/20 07:40) Other prednisone Adverse Reaction (Verified 03/14/20 07:40) Swelling only in big doses Home Medications: Ambulatory Orders Medication Instructions Recorded Folic Acid 1 mg PO DAILY@0800 02/05/16 Magnesium Oxide [Magnesium] 400 mg PO DAILY@0800 02/05/16 Vit C/E/Zn/Coppr/Lutein/Zeaxan 1 ea PO DAILY 07/04/17 [Preservision Areds 2 Softgel] Gabapentin 600 mg PO QHS 02/28/19 Apixaban [Eliquis] 2.5 mg PO BID 04/07/19 Gabapentin [Neurontin] 300 mg PO DAILY 04/21/19 hydromorphone 4 mg tablet 4 - 8 mg PO Q4H PRN tab 05/21/19 atorvastatin 20 mg tablet 20 mg PO QHS #90 tab 08/05/19 multivitamin 1 tab PO DAILY 03/10/20 testosterone cypionate 100 mg/mL 100 mg IM Q2W ml 03/10/20 intramuscular oil Cholecalciferol (VIT D3) [Vitamin 1,000 unit PO DAILY 03/14/20 D] Furosemide 60 mg PO BID 03/14/20 Lactulose [Chronulac, Cephulac] 20 gm PO BID PRN PRN 03/14/20 Metoprolol Succinate 50 mg PO DAILY 03/14/20 Surgical History: Surgical History (Last Reviewed 03/14/20 @ 14:17 by Sena Jackson GERMAN PROFESSOR, GERMAN PROFESSOR-C) History of laminectomy Z98.890 History of splenectomy Z90.81 Surgical History: colectomy - Partial., - - Splenectomy, Ileostomy reversal, L4-5 discectomy. Wound debridement 03/04/2017, 05/14/2017 at [facility]> Psychiatric History: No pertinent psych hx Lives: Spouse/ Significant Other Smoking Status: Current every day smoker Alcohol: Occasional - 3 shots of vodka per day usually Drugs: None - *Family History Maternal Family History: Family History (Last Reviewed 03/10/20 @ 13:[address] Micky Mauro MD) Father Diabetes Heart disease Mother Heart disease History Items: Heart Disease Paternal Family History: Family History (Last Reviewed 03/10/20 @ 13:[address] Micky Mauro MD) Father Diabetes Heart disease Mother Heart disease History Items: Diabetes Review of Systems Constitutional: Reports: Fever, Malaise, Fatigue. Denies: Chills, Weight Change HEENT: Denies: Head Aches, Sinus Congestion, Sinus Drainage Cardiovascular: Denies: Chest Pain, Palpitations Respiratory: Reports: Cough, Shortness of Breath, Sputum production Gastrointestinal: Denies: Abdominal Pain, Nausea, Vomiting Genitourinary: Denies: Dysuria Musculoskeletal: Denies: Joint Pain, Joint Tenderness Skin: Reports: - - Chronic lumbar back wound. Denies: Rash Neurological: Denies: Numbness, Tingling, Focal weakness Psychiatric: Denies: Anxiety, Depression, Homicidal Ideations, Suicidal Ideations Hematologic/ Lymphatic: Denies: Easy Bruising, Easy Bleeding VTE Information - Inpt Only VTE Present on Admission: No VTE Mechan Device Prophylaxis: None VTE Pharm Prophylaxis ordered?: Yes Patient Problems: Active and Suspected Problems (Last Reviewed 03/10/20 @ 13:[address] Micky Mauro MD) Sepsis due to pneumonia (Acute) Acute kidney injury (Acute) Hypoxemia (Acute) Elevated troponin (Acute) - Physical Exam Vitals/I&O's: Vital Signs Temp Pulse Resp BP Pulse Ox 98.7 F 133 H 20 H 101/66 98 03/14/20 11:59 03/14/20 13:09 03/14/20 11:59 03/14/20 11:59 03/14/20 11:59 Oxygen Flow Rate (L/min) 5 Oxygen Delivery Method Nasal Cannula Weight: 220 lb 3.869 oz Body Mass Index (BMI) 33.5 Intake and Output for Last 24 Hours 03/12/20 03/13/20 03/14/20 23:59 23:59 23:59 Intake Total 805 / 805 Balance 805 / 805 General: Alert, Oriented x3, Cooperative HEENT: Atraumatic, PERRLA, EOMI, Normocephalic Neck: Supple, No JVD, Negative Carotid Bruits Lungs: Diminished, - - Faint crackles bilateral bases Cardiovascular: Regular rate, No murmurs Abdomen: Bowel Sounds Present, Soft, Non Tender, Non-Distended Extremities: No clubbing, No cyanosis, No edema, Capillary Refill Less than 3 Seconds Skin: No rashes, No breakdown, - - Chronic lumbar back wound, dressing intact. Musculoskeletal: No Tenderness to Palpation of Joints or Extremities Neurological: Cranial nerves II-XII grossly intact, Neuro grossly intact Psych/Mental Status: Flat Affect Microbiology Past 72 Hours 03/14/20 09:30 Urine, Clean Catch Legionella Antigen - Final 03/14/20 09:30 Urine, Clean Catch Streptococcus pneumoniae Antigen (M - Final Laboratory Results 03/14/20 08:25: WBC 14.4 H, RBC 2.84 L, Hgb 10.5 L, Hct 32.2 L, MCV 113.4 H, MCH 37.0 H, MCHC 32.6, RDW Std Deviation 76.2 H, RDW Coeff of Reggie 18.6 H, Plt Count 274, MPV 10.2, Immature Gran % (Auto) 0.600, Neut % (Auto) 88.1 H, Lymph % (Auto) 2.6 L, [place] % (Auto) 8.6, Eos % (Auto) 0.0, Baso % (Auto) 0.1, Absolute Neuts (auto) 12.6 H, Absolute Lymphs (auto) 0.37 L, Nucleated RBC % 0.1, Platelet Estimate ADEQUATE, Polychromasia RARE, Hypochromasia 1+, Anisocytosis 1+, Macrocytosis 2+ 03/14/20 08:25: PT 21.5 H, INR 1.9, APTT 39.1 H 03/14/20 08:25: Sodium 136, Potassium 4.3, Chloride 101, Carbon Dioxide 27.0, Anion Gap 8, BUN 71 H, Creatinine 2.94 H, Estim Creat Clear Calc 21.00, Est GFR (MDRD) Af Amer 27 L, Est GFR (MDRD) Non-Af 22 L, BUN/Creatinine Ratio 24.1 H, Glucose 123 H, Calcium 8.8, Total Bilirubin 0.80, AST 26, ALT 17, Alkaline Phosphatase 96, Troponin I 0.197 H, Total Protein 8.6 H, Albumin 2.3 L, Globulin 6.3 H, Albumin/Globulin Ratio 0.4 L 03/14/20 08:25: Lactic Acid 2.0 03/14/20 08:25: B-Natriuretic Peptide 2666.1 H 03/14/20 08:30: COVID-19 ([place]) Not Detected 03/14/20 09:25: Urine Color Yellow, Urine Clarity Clear, Urine pH 5.0, Ur Specific [place] 1.015, Urine Protein 30 H, Urine Glucose (UA) Normal, Urine Ketones 5 H, Urine Occult Blood 25 H, Urine Nitrite Negative, Urine Bilirubin Negative, Urine Urobilinogen Normal, Ur Leukocyte Esterase 25 H, Urine RBC 0-5 SEEN, Urine WBC 0-5 SEEN, Ur Squamous Epith Cells 0-5 SEEN, Urine Bacteria 1+, Urine Mucus 0 SEEN 03/14/20 12:50: Lactic Acid 1.5 Current Medications Acetaminophen (Acetaminophen 325 Mg Tablet) 650 mg PO Q6H PRN PRN PRN Reason: Pain Score 1-10/Temp > 100.7 F Albuterol Sulfate (Albuterol 2.5 Mg/3 Ml Vial.Neb.) 2.5 mg INHALATION Q6HWA.RT [place] Albuterol Sulfate (Albuterol 2.5 Mg/3 Ml Vial.Neb.) 2.5 mg INHALATION Q2H PRN PRN PRN Reason: DYSPNEA Apixaban (Apixaban 2.5 Mg Tablet) 2.5 mg PO BID [place] Atorvastatin Calcium (Atorvastatin Calcium 20 Mg Tablet) 20 mg PO QHS [facility] Furosemide (Furosemide 40 Mg Tablet) 40 mg PO BID@1000,1800 [facility] Last Admin: 03/14/20 13:09 Dose: 40 mg Documented by: Gabapentin (Gabapentin 600 Mg Tablet) 600 mg PO QHS [facility] Gabapentin (Gabapentin 300 Mg Capsule) 300 mg PO DAILY [facility] Hydromorphone HCl (Hydromorphone 2 Mg Tablet) 4 mg PO Q6H PRN PRN Reason: PAIN 1-10 OR FEVER Ceftriaxone Sodium 2 gm/ (Sodium Chloride) 50 mls @ 100 mls/hr IV Q24H [facility] Azithromycin 500 mg/ Dextrose 255 mls @ 250 mls/hr IV Q24 [facility] Stop: 03/20/20 10:01 Sodium Chloride () 250 mls @ 15 mls/hr IV .[id number] PRN PRN Reason: Saline Flush Sodium Chloride () 250 mls @ 15 mls/hr IV .[id number] PRN PRN Reason: Additional IVPB Infusion Magnesium Chloride (Magnesium Chloride 64 Mg Delay Rel.Tablet) 128 mg PO DAILY@0800 [facility] Metoprolol Succinate (Metoprolol(Xl)Succ 50 Mg Tablet) 50 mg PO DAILY [facility] Last Admin: 03/14/20 13:09 Dose: 50 mg Documented by: Ondansetron HCl (Ondansetron 4 Mg/2 Ml Vial) 4 mg IV Q8H PRN PRN PRN Reason: NAUSEA/VOMITING Sodium Chloride (0.9% Saline Lock 10 Ml Syringe) 10 - 40 ml IV UD PRN PRN Reason: SALINE FLUSH Last Admin: 03/14/20 13:12 Dose: 10 ml Documented by: Assessment/Plan All Active Problems (Last Reviewed 03/10/20 @ 13:[address] Micky Mauro MD) Sepsis due to pneumonia (Acute) Acute kidney injury (Acute) Hypoxemia (Acute) Elevated troponin (Acute) Elevated INR (Resolved) Skin tear of left elbow without complication (Resolved) 1. Acute hypoxic respiratory insufficiency secondary to community-acquired lingular pneumonia-IV azithromycin and IV Rocephin. Albuterol DuoNeb aerosols. Urine for strep and Legionella negative. Blood cultures pending. Continue supplement oxygen to maintain O2 at above 90%. 2. Sepsis, secondary to community-acquired lingular pneumonia-treatment per above. 3. Acute kidney injury on chronic kidney disease stage III-IV fluids, trend BMP. 4. Indeterminate troponin-patient denies chest pain. Trend enzymes. Patient has a history of abnormal troponin during prior admissions. 5. Nonhealing surgical wound of lower back-following at [facility]. Patient had surgical debridement for abscess following lumbar spine surgery. Original surgery was in 2016 and since then he has had multiple complications. Wound RN consult. 6. Chronic alcoholism with hepatic cirrhosis-continue lactulose, Lasix. 7. 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 8. Chronic anemia-Following with hematology, Dr. Prah. Pantoja. 9. History of paroxysmal atrial fibrillation/paroxysmal SVT-continue Eliquis, metoprolol. 10. History of nonischemic cardiomyopathy-echocardiogram February 2019 demonstrated an EF of 55%, moderate tricuspid valve insufficiency, pulmonary artery systolic pressure 46 mmHg. Patient previously had an EF of 25% which improved as noted. 11. Hypertension-stable, continue metoprolol regimen. 12. Hyperlipidemia-continue statin regimen. 13. History of non-Hodgkin's lymphoma status post splenectomy DVT prophylaxis- Eliquis This patient was seen by DANNIELLE Melgar under the supervision of Dr. Bray.
--- NOTE | 2020-03-14 14:28 | NURSING ---
this RN did not order dietary supplement because pt states that he doesn't want it while he is here
--- NOTE | 2020-03-14 14:45 | NURSING ---
wound photo: mid lower back
[2020-03-14 16:37] LABS: Magnesium 2.7 mg/dL (1.6-2.6)
[2020-03-14] MEDS: Metoprolol Tartrate 5 MG/5 ML Vial IV (18:05)
[2020-03-14] MEDS: 0.9% Normal Saline 1,000 ML 75 ML IV (19:14)
[2020-03-14] MEDS: Gabapentin 600 MG Tablet PO (22:56)
[2020-03-14] MEDS: Atorvastatin Calcium 20 MG Tablet PO (22:57)
[2020-03-14] MEDS: APIXABAN 2.5 MG TABLET PO (22:57)
[2020-03-15] VITALS (47 sets, daily range): BP systolic 67–173; BP diastolic 49–152; PULSE 104–141; RESP 15–29; TEMP 36.3–38.2; O2SAT 87–100
--- NOTE | 2020-03-15 00:01 | EKG12_ITS ---
Test Reason : RHYTHM CHANGE Blood Pressure : / mmHG Vent. Rate : 137 BPM Atrial Rate : 137 BPM P-R Int : 130 ms QRS Dur : 140 ms QT Int : 332 ms P-R-T Axes : 096 -56 090 degrees QTc Int : 501 ms Sinus tachycardia Right bundle branch block Left anterior fascicular block Bifascicular block Abnormal ECG Confirmed by SAMMIE HAYES, NICKY ([id number]), online content editor MADDISON ROSA ([id number]) on 03/16/2020 9:05:26 AM Referred By: DR AMOR Confirmed By:NICKY COCHRAN MD
[2020-03-15] MEDS: Albuterol 2.5 MG/3 ML VIAL.NEB. INHALATION ×2 (00:22→07:21)
[2020-03-15] MEDS: 0.9% Saline Lock 10 ML Syringe IV ×3 (01:06→15:50)
[2020-03-15] MEDS: dilTIAZem 25 MG/5 ML Vial 10 MG IV BOLUS (01:06)
[2020-03-15] MEDS: HYDROmorphone 2 MG TABLET 4 MG PO (02:14)
[2020-03-15] MEDS: Acetaminophen 325 MG Tablet 650 MG PO ×2 (02:50→22:02)
[2020-03-15 06:08] LABS: Absolute Neutrophil Count 12.2 X10^3/uL (2.0-7.7); Basophil# 0.01 X10^3/uL; Basophil% 0.1 % (0-1); Hematocrit 30.5 % (40-54); Hemoglobin 9.6 g/dL (13.0-16.5); Lymphocyte % 2.9 % (19-41); Mean Corp Hgb Conc 31.5 g/dL (32-36); Mean Corpuscular Hgb 36.5 pg (27.0-32.0); Mean Platelet Vol. 10.4 fl (6.2-12.0); Monocyte# 1.06 X10^3/uL; Monocyte% 7.7 % (0-10); NRBC Flagged by Analyzer 0.1 % (0-5); Neutrophil # 12.18 X10^3/uL (2.7-7.7); Neutrophil % 88.5 % (47-70); POSITIVE DIFFERENTIAL YES; POSITIVE MORPHOLOGY YES; Platelet Count 228 K/mm3 (150-450); RBC Distribution Width CV 18.6 % (11.6-14.6); RBC Distribution Width SD 77.6 fl (35.1-43.9); Red Blood Count 2.63 M/mm3 (4.6-6.2); White Blood Count 13.8 K/mm3 (4.4-11.0)
[2020-03-15 06:22] LABS: Differential Indicated SCAN CRITERIA MET
[2020-03-15 06:30] LABS: Anion Gap 6 (5-15); BUN 72 mg/dL (7-18); BUN/Creat Ratio 24.9 RATIO (10-20); Calcium,Total 8.2 mg/dL (8.5-10.1); Chloride 104 mmol/L (98-107); Creatinine, Serum 2.89 mg/dL (0.70-1.30); EST Glomerular Filtration Rate 23 mL/min (>60); Est Glom Filt Rate - Afr Amer 28 mL/min (>60); Estimated Creatinine Clearance 21.37 ml/min; Glucose 101 mg/dL (74-106); Potassium 4.1 mmol/L (3.5-5.1); Sodium Level 137 mmol/L (136-145)
[2020-03-15 06:46] LABS: Differential Comment SCANNED; Hypochromasia RARE; Polychromasia RARE
--- NOTE | 2020-03-15 07:57 | CPS ---
treatment elevated hr. talked to nursing and they said they would touch base with the drPhilip about making tx's prn.
[2020-03-15] MEDS: Metoprolol(XL)Succ 50 MG Tablet PO (08:39)
[2020-03-15] MEDS: Furosemide 40 MG Tablet PO (08:39)
[2020-03-15] MEDS: Magnesium Chloride 64 MG Delay Rel.Tablet 128 MG PO (08:39)
[2020-03-15] MEDS: APIXABAN 2.5 MG TABLET PO ×2 (08:39→22:03)
[2020-03-15] MEDS: Gabapentin 300 MG Capsule PO (08:40)
[2020-03-15] MEDS: 0.9% Normal Saline 1,000 ML 75 ML IV (10:07)
[2020-03-15] MEDS: 0.9% Normal Saline 1,000 ML 500 ML IV (10:30)
--- NOTE | 2020-03-15 12:05 | NURSING ---
Pt incontinent of a large loose brown stool. patient cleaned and new green pad placed under patient. Mepilex dressing remains in place at this time. no stool contamination noted.
--- NOTE | 2020-03-15 13:27 | PN_ITS ---
Patient Problems: Active and Suspected Problems (Last Reviewed 03/10/20 @ 13:[address] Micky Mauro MD) Sepsis due to pneumonia (Acute) Acute kidney injury (Acute) Hypoxemia (Acute) Elevated troponin (Acute) Subjective: Patient seen and examined. Flat affect. Reports improvement in breathing. Denies chest pain, palpitations. Low-grade fever overnight. - Physical Exam Vitals/I&O's: Vital Signs Temp Pulse Resp BP Pulse Ox 99.1 F 110 H 21 H 88/64 L 90 03/15/20 12:00 03/15/20 12:30 03/15/20 12:30 03/15/20 12:30 03/15/20 12:30 Oxygen Flow Rate (L/min) 5 Oxygen Delivery Method Nasal Cannula Weight: 220 lb 3.869 oz Body Mass Index (BMI) 33.5 Intake and Output for Last 24 Hours 03/13/20 03/14/20 03/15/20 23:59 23:59 23:59 Intake Total 1595 / 1595 2688.00 / 2688.00 Output Total 300 / 300 425 / 425 Balance 1295 / 1295 2263.00 / 2263.00 General: Alert, Oriented x3, Cooperative HEENT: Atraumatic, PERRLA, EOMI, Normocephalic Oral: Dry Mucosa Neck: Supple, No JVD, Negative Carotid Bruits Lungs: Clear to auscultation, Diminished Cardiovascular: - - Atrial flutter, tachycardic Abdomen: Bowel Sounds Present, Soft, Non Tender, Non-Distended Extremities: No clubbing, No cyanosis, No edema, Capillary Refill Less than 3 Seconds Skin: No rashes, No breakdown Musculoskeletal: No Tenderness to Palpation of Joints or Extremities Neurological: Cranial nerves II-XII grossly intact, Neuro grossly intact Psych/Mental Status: Flat Affect Microbiology Past 72 Hours 03/14/20 09:30 Urine, Clean Catch Legionella Antigen - Final 03/14/20 09:30 Urine, Clean Catch Streptococcus pneumoniae Antigen (M - Final Laboratory Results 03/14/20 08:25: Magnesium 2.7 H 03/14/20 12:50: Lactic Acid 1.5 03/15/20 05:30: WBC 13.8 H, RBC 2.63 L, Hgb 9.6 L, Hct 30.5 L, MCV 116.0 H, MCH 36.5 H, MCHC 31.5 L, RDW Std Deviation 77.6 H, RDW Coeff of Reggie 18.6 H, Plt Cou nt 228, MPV 10.4, Immature Gran % (Auto) 0.800, Neut % (Auto) 88.5 H, Lymph % (Auto) 2.9 L, [place] % (Auto) 7.7, Eos % (Auto) 0.0, Baso % (Auto) 0.1, Absolute Neuts (auto) 12.2 H, Absolute Lymphs (auto) 0.40 L, Nucleated RBC % 0.1, Differential Comment SCANNED, Polychromasia RARE, Hypochromasia RARE 03/15/20 05:30: Sodium 137, Potassium 4.1, Chloride 104, Carbon Dioxide 27.0, Anion Gap 6, BUN 72 H, Creatinine 2.89 H, Estim Creat Clear Calc 21.37, Est GFR (MDRD) Af Amer 28 L, Est GFR (MDRD) Non-Af 23 L, BUN/Creatinine Ratio 24.9 H, Glucose 101, Calcium 8.2 L Current Medications Acetaminophen (Acetaminophen 325 Mg Tablet) 650 mg PO Q6H PRN PRN PRN Reason: Pain Score 1-10/Temp > 100.7 F Last Admin: 03/15/20 02:50 Dose: 650 mg Documented by: Albuterol Sulfate (Albuterol 2.5 Mg/3 Ml Vial.Neb.) 2.5 mg INHALATION Q6HWA.RT [facility] Last Admin: 03/15/20 07:21 Dose: 2.5 mg Documented by: Albuterol Sulfate (Albuterol 2.5 Mg/3 Ml Vial.Neb.) 2.5 mg INHALATION Q2H PRN PRN PRN Reason: DYSPNEA Apixaban (Apixaban 2.5 Mg Tablet) 2.5 mg PO BID [facility] Last Admin: 03/15/20 08:39 Dose: 2.5 mg Documented by: Atorvastatin Calcium (Atorvastatin Calcium 20 Mg Tablet) 20 mg PO QHS [facility] Last Admin: 03/14/20 22:57 Dose: 20 mg Documented by: Furosemide (Furosemide 40 Mg Tablet) 40 mg PO BID@1000,1800 [facility] Last Admin: 03/15/20 08:39 Dose: 40 mg Documented by: Gabapentin (Gabapentin 600 Mg Tablet) 600 mg PO QHS [facility] Last Admin: 03/14/20 22:56 Dose: 600 mg Documented by: Gabapentin (Gabapentin 300 Mg Capsule) 300 mg PO DAILY [facility] Last Admin: 03/15/20 08:40 Dose: 300 mg Documented by: Hydromorphone HCl (Hydromorphone 2 Mg Tablet) 4 mg PO Q6H PRN PRN Reason: PAIN 1-10 OR FEVER Last Admin: 03/15/20 02:14 Dose: 4 mg Documented by: Ceftriaxone Sodium 2 gm/ (Sodium Chloride) 50 mls @ 100 mls/hr IV Q24H [facility] Last Infusion: 03/15/20 12:54 Dose: Infused Documented by: Azithromycin 500 mg/ Dextrose 255 mls @ 250 mls/hr IV Q24 [facility] Stop: 03/20/20 10:01 Last Infusion: 03/15/20 10:08 Dose: Infused Documented by: Sodium Chloride () 250 mls @ 15 mls/hr IV .[id number] PRN PRN Reason: Saline Flush Sodium Chloride () 250 mls @ 15 mls/hr IV .[id number] PRN PRN Reason: Additional IVPB Infusion Sodium Chloride () 1,000 mls @ 75 mls/hr IV .[id number] [facility] Last Infusion: 03/15/20 10:30 Dose: 0 mls/hr Documented by: Sodium Chloride () 500 mls @ 500 mls/hr IV .Q1H [facility] Stop: 03/15/20 13:52 Magnesium Chloride (Magnesium Chloride 64 Mg Delay Rel.Tablet) 128 mg PO DAILY@0800 [facility] Last Admin: 03/15/20 08:39 Dose: 128 mg Documented by: Metoprolol Succinate (Metoprolol(Xl)Succ 50 Mg Tablet) 50 mg PO DAILY [facility] Last Admin: 03/15/20 08:39 Dose: 50 mg Documented by: Ondansetron HCl (Ondansetron 4 Mg/2 Ml Vial) 4 mg IV Q8H PRN PRN PRN Reason: NAUSEA/VOMITING Sodium Chloride (0.9% Saline Lock 10 Ml Syringe) 10 - 40 ml IV UD PRN PRN Reason: SALINE FLUSH Last Admin: 03/15/20 02:40 Dose: 10 ml Documented by: Medical Necessity - Tobacco Use Smoking Status: Current every day smoker Assessment/Plan All Active Problems (Last Reviewed 03/10/20 @ 13:[address] Micky Mauro MD) Sepsis due to pneumonia (Acute) Acute kidney injury (Acute) Hypoxemia (Acute) Elevated troponin (Acute) Elevated INR (Resolved) Skin tear of left elbow without complication (Resolved) 1. Acute hypoxic respiratory insufficiency secondary to community-acquired lingular pneumonia-IV azithromycin and IV Rocephin. Albuterol DuoNeb aerosols. Urine for strep and Legionella negative. Blood cultures and sputum culture pending. Continue supplement oxygen to maintain O2 at above 90%. 2. Sepsis, secondary to community-acquired lingular pneumonia-treatment per above. 3. Acute kidney injury on chronic kidney disease stage III- trending down, repeat BMP in a.m. 4. Indeterminate troponin-patient denies chest pain. Patient has a history of abnormal troponin during prior admissions. 5. Nonhealing surgical wound of lower back-following at [facility]. Patient had surgical debridement for abscess following lumbar spine surgery. Original surgery was in 2015 and since then he has had multiple complications. Wound RN consult. 6. History of paroxysmal atrial fibrillation/atrial flutter/paroxysmal SVT- continue Eliquis. Currently atrial flutter, tachycardic. Patient placed on IV Cardizem drip overnight. Rate now improved. Increase home metoprolol regimen to 50 mg daily. 7. 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 8. Chronic anemia-Following with hematology, Dr. Contreras. Scarlett. 9. Chronic alcoholism with hepatic cirrhosis-continue lactulose, Lasix. 10. History of nonischemic cardiomyopathy-echocardiogram February 2019 demonstrated an EF of 55%, moderate tricuspid valve insufficiency, pulmonary artery systolic pressure 46 mmHg. Patient previously had an EF of 25% which improved as noted. 11. Hypertension-stable, continue metoprolol regimen. 12. Hyperlipidemia-continue statin regimen. 13. History of non-Hodgkin's lymphoma status post splenectomy DVT prophylaxis- Eliquis This patient was seen by DANNIELLE Melgar under the supervision of Dr. Bray.
--- NOTE | 2020-03-15 14:08 | CASEMGMT ---
RN [place] assessment: Face to Face with patient for initial transition planning/care coordination assessment. RN CM introduced self and role at [facility], pt voices understanding and consents to assessment at this time. Pt is sitting up in bed in no distress at this time. Pt is A/Ox4 at this time and answers all questions appropriately at this time. Pt is irritable and short with answers at this time. Care providers, pharmacy, and demographics verified at this time. Presentation: SOB x couple days, productive cough Admitting dx: Left pna, sepsis PCP: Renny Specialists: Zunilda, cardio Preferred Pharmacy: [facility] Insurance: MCR A/B, [employer] Prescription Benefit: [employer] Living Will/HPOA: Pt states does not have LW/HPOA and declines AD info at this time, stating 'I have it at home.' LNOK: Yolanda Marshall, Living Arrangements: Pt states lives with on main level of 2 story home and states no concerns at home at this time. Pt states is independent with ADL's. Transportation: Pt states drives self and states no transportation concerns at this time. DME/HHC: Pt states has grab bars and states no need for any further DME at this time. Pt states no hx of HHC or SNF in the past. Pt states no concerns with going home at time of discharge but gets angry at RN [place] for asking this question and states 'what do you need to know that for?' Pt states is retired. Pt states smokes cigars during the summer and drinks 2-3 liquor drinks daily. Pt states no further concerns/needs at this time. CM to follow for any further discharge planning/needs. Advised pt to ask for CM if any further questions/concerns/needs arise, voices understanding. As this RN CM leaving room, pt states angrily, 'What do you need all that for any way?' This RN CM explained that we are trying to facilitate a safe, successful discharge for pt and to figure out if there is anything we can help him with. Pt Goal: Home Plan: Home [place] RN [place]
--- NOTE | 2020-03-15 15:40 | RAD_ITS ---
STUDY: X-RAY CHEST REASON FOR EXAM: Male, 74 years old. hx of pneumonia, sepsis. TECHNIQUE: Single AP portable view of the chest. COMPARISON: 03/14/2020 FINDINGS: No change in the alveolar opacity in the lower left lung which silhouettes left heart border consistent with lingular pneumonia. Poor inspiration with some bibasilar atelectasis. Slightly elevated right hemidiaphragm which is unchanged. There is moderate cardiac enlargement. Normal mediastinum and raquel. Normal visualized pulmonary arteries. Normal visualized aortic arch and descending thoracic aorta. Normal visualized thoracic spine. Normal visualized ribs, clavicles, and shoulders. There is no demonstrated abnormality of the visualized soft tissue structures of the upper abdomen. RAD/Chest 1 View (Portable) IMPRESSION: 1. No change in lingular pneumonia. 2. Poor inspiration with some bibasilar atelectasis per Electronically Signed: Jorgito Enamorado MD at 16:15 EST Tel , Service support ,
[2020-03-15] MEDS: 0.9% Normal Saline 1,000 ML 999 ML IV (15:49)
[2020-03-15 16:23] LABS: Absolute Lymphocyte Count 0.42 X10^3/uL (0.83-4.51); Absolute Neutrophil Count 12.3 X10^3/uL (2.0-7.7); Basophil# 0.02 X10^3/uL; Basophil% 0.1 % (0-1); Hematocrit 30.5 % (40-54); Hemoglobin 9.4 g/dL (13.0-16.5); Lymphocyte # 0.42 X10^3/ul (4.0); Mean Corp Hgb Conc 30.8 g/dL (32-36); Mean Corpuscular Hgb 36.6 pg (27.0-32.0); Mean Corpuscular Volume 118.7 fL (80-94); Mean Platelet Vol. 10.4 fl (6.2-12.0); Monocyte# 1.24 X10^3/uL; Monocyte% 8.8 % (0-10); NRBC Flagged by Analyzer 0.1 % (0-5); Neutrophil # 12.31 X10^3/uL (2.7-7.7); Neutrophil % 87.5 % (47-70); POSITIVE DIFFERENTIAL YES; POSITIVE MORPHOLOGY YES; Platelet Count 221 K/mm3 (150-450); RBC Distribution Width SD 82.2 fl (35.1-43.9); Red Blood Count 2.57 M/mm3 (4.6-6.2); White Blood Count 14.1 K/mm3 (4.4-11.0)
[2020-03-15 16:32] LABS: Anion Gap 7 (5-15); BUN 75 mg/dL (7-18); BUN/Creat Ratio 24.8 RATIO (10-20); Calcium,Total 8.2 mg/dL (8.5-10.1); Chloride 104 mmol/L (98-107); Creatinine, Serum 3.02 mg/dL (0.70-1.30); EST Glomerular Filtration Rate 22 mL/min (>60); Est Glom Filt Rate - Afr Amer 26 mL/min (>60); Estimated Creatinine Clearance 20.45 ml/min; Glucose 108 mg/dL (74-106); Potassium 4.5 mmol/L (3.5-5.1); Sodium Level 138 mmol/L (136-145)
[2020-03-15 16:35] LABS: Differential Indicated SCAN CRITERIA MET
[2020-03-15 16:45] LABS: Lactic Acid 1.5 mmol/L (0.4-1.9)
[2020-03-15 17:00] LABS: Anisocytosis 1+; Differential Comment SCANNED
[2020-03-15] MEDS: 0.9% Normal Saline 1,000 ML 150 ML IV (17:15)
[2020-03-15] MEDS: Metoprolol(XL)Succ 25 MG Tablet PO (17:15)
[2020-03-15] MEDS: 0.9% Normal Saline 1,000 ML 100 ML IV (21:30)
[2020-03-15] MEDS: Atorvastatin Calcium 20 MG Tablet PO (22:03)
[2020-03-15] MEDS: Gabapentin 600 MG Tablet PO (22:03)
[2020-03-16] VITALS (61 sets, daily range): BP systolic 63–111; BP diastolic 48–74; PULSE 92–133; RESP 12–37; TEMP 36.2–36.9; O2SAT 88–100
[2020-03-16] MEDS: 0.9% Normal Saline 1,000 ML 999 ML IV (01:03)
--- NOTE | 2020-03-16 01:45 | NURSING ---
MD Mead up to nursing station, this RN notified Dr. Mead of concern regarding pt's low bp's, HR in afib RVR sustained in 120's, noted JVD, lasix was held on hi and multiple boluses had been given throughout the day to improve bp without success. Additionally pt has noted periods of intermittent apnea on 4L O2. Asked that pt be seen by .
--- NOTE | 2020-03-16 01:49 | RAD_ITS ---
STUDY: X-RAY CHEST REASON FOR EXAM: Male, 74 years old. INCREASED SOB TECHNIQUE: Single AP portable view of the chest. COMPARISON: 03/15/2020 FINDINGS: The lungs are cl Ill-defined subpleural groundglass opacities are seen more prominent in the lung bases , may represent atypical pneumonia or viral pneumonia (COVID-19 ?). ear and expanded. There is no demonstrated pleural abnormality. Normal size heart. Normal mediastinum and raquel. Normal visualized pulmonary arteries. Normal visualized aortic arch and descending thoracic aorta. Normal visualized thoracic spine. Normal visualized ribs, clavicles, and shoulders. There is no demonstrated abnormality of the visualized soft tissue structures of the upper abdomen. RAD/Chest 1 View (Portable) IMPRESSION: Ill-defined subpleural groundglass opacities are seen more prominent in the lung lingula, may represent atypical pneumonia or viral pneumonia (COVID-19 ?). Electronically Signed: Dereck Rojo, at 3:31 EST Tel , Service support ,
--- NOTE | 2020-03-16 02:41 | PN_ITS ---
Progress Note Patient systolic blood pressure less than 90. 1 L normal saline ordered and given but the systolic blood pressure remains less than 90. Received 5,800 ml NSS since 03/15/2020. She was examined at the bedside. Patient later went x3. Has an S1-S2 present. Abdomen soft nontender nondistended. Bilateral legs with edema Impression: severe sepsis and A. fib with RVR Ceftriaxone azithromycin continue Stop metoprolol and Lasix for now. Transfer to intensive care unit and start patient on Levophed Manager Of Compliance consult. STROKE Vital Signs/Narrative: Vital Signs Temp Pulse Resp BP BP Pulse Ox 03/16/20 01:46 98.3 F 125 H 21 H 79/65 L 94 03/16/20 00:30 127 H 20 H 78/59 L 95 03/16/20 00:28 97.1 F L 125 H 19 H 77/61 L 95 03/15/20 23:36 97.3 F L 124 H 24 H 67/55 L 87 03/15/20 23:00 121 H 22 H 82/57 L 93
--- NOTE | 2020-03-16 03:41 | NURSING ---
Telephone report called to Katia Haywood RN in ICU at this time. She states okay to transport pt up.
--- NOTE | 2020-03-16 04:10 | NURSING ---
Pt transported to ICU per this RN and GILBERT Driscoll.
[2020-03-16 04:40] LABS: Anion Gap 7 (5-15); BUN 72 mg/dL (7-18); BUN/Creat Ratio 24.1 RATIO (10-20); Calcium,Total 7.3 mg/dL (8.5-10.1); Chloride 107 mmol/L (98-107); Creatinine, Serum 2.99 mg/dL (0.70-1.30); EST Glomerular Filtration Rate 22 mL/min (>60); Est Glom Filt Rate - Afr Amer 26 mL/min (>60); Estimated Creatinine Clearance 20.65 ml/min; Glucose 90 mg/dL (74-106); Sodium Level 138 mmol/L (136-145)
[2020-03-16 04:42] LABS: Hematocrit 29.9 % (40-54); Hemoglobin 8.9 g/dL (13.0-16.5); Mean Corp Hgb Conc 29.8 g/dL (32-36); Mean Corpuscular Hgb 36.3 pg (27.0-32.0); Mean Platelet Vol. 10.2 fl (6.2-12.0); POSITIVE MORPHOLOGY YES; Platelet Count 203 K/mm3 (150-450); RBC Distribution Width CV 19.1 % (11.6-14.6); RBC Distribution Width SD 85.2 fl (35.1-43.9); Red Blood Count 2.45 M/mm3 (4.6-6.2); White Blood Count 11.6 K/mm3 (4.4-11.0)
[2020-03-16] MEDS: 0.9% Saline Lock 10 ML Syringe IV (04:45)
[2020-03-16 05:09] LABS: Scan Indicated on CBC? Y/N YES- FLAGS NOTED
[2020-03-16 05:29] LABS: Differential Comment SCANNED
--- NOTE | 2020-03-16 07:45 | EKG12_ITS ---
Test Reason : Blood Pressure : / mmHG Vent. Rate : 127 BPM Atrial Rate : 133 BPM P-R Int : 124 ms QRS Dur : 142 ms QT Int : 356 ms P-R-T Axes : 097 -56 127 degrees QTc Int : 517 ms Sinus tachycardia Right bundle branch block Left anterior fascicular block Bifascicular block Abnormal ECG When compared with ECG of 15-MAR-2020 00:16, MANUAL COMPARISON REQUIRED, DATA IS UNCONFIRMED Confirmed by SHAYLA HAYES, ANGEL ([id number]), makeup editor MADDISON ROSA ([id number]) on 03/17/2020 12:50:59 PM Referred By: [place] Confirmed By:ANGEL MCGUIRE MD
[2020-03-16] MEDS: 0.9% Normal Saline 1,000 ML 100 ML IV (09:00)
--- NOTE | 2020-03-16 10:22 | CON.PCM_ITS ---
Problem List (1) Sepsis due to pneumonia Status: Acute (2) Acute kidney injury Status: Acute (3) Hypoxemia Status: Acute (4) Paroxysmal atrial fibrillation Status: Chronic (5) Right ventricular dilation Status: Chronic (6) Non-ischemic cardiomyopathy Status: Chronic (7) Chronic combined systolic and diastolic CHF (congestive heart failure) Status: Chronic (8) Secondary pulmonary arterial hypertension Status: Chronic (9) Essential (primary) hypertension Status: Chronic (10) Hyperlipidemia Status: Chronic Qualifiers: Hyperlipidemia type: unspecified Qualified Code(s): E78.5 - Hyperlipidemia, unspecified (11) Hepatic cirrhosis Status: Chronic (12) History of non-Hodgkin's lymphoma Status: Chronic (13) Non-healing surgical wound Status: Chronic Qualifiers: Encounter type: subsequent encounter Qualified Code(s): T81.89XD - Other complications of procedures, not elsewhere classified, subsequent encounter (14) Recurrent deep vein thrombosis (DVT) Status: Chronic Reason for Consult Date of Consultation: 03/16/20 Reason for Consultation: Septic shock History of Present Illness: The patient is a 74 year old M, with past medical history listed below, who pre sented [facility] 03/14/2020 secondary to fever, chills and worsening shortness of breath. Patient is a very poor historian, so obtaining history was primarily through the electronic medical record. Patient reportedly is supposed to be on Eliquis at baseline. Patient reportedly has had progressive shortness of breath with coughing productive of thick brown sputum. Patient is unable to describe exact onset. On presentation in the ER, patient was noted to be 99.8 ?F and tachycardic at 144 bpm with blood pressure 158/97 and a saturation of 89%. Laboratory work-up showed a leukocytosis of 14.4, elevated INR at 1.9 and renal insufficiency with a BUN of 71 and creatinine of 2.9. Troponin was slightly elevated at 0.197, but LFTs were within normal limits. BNP was elevated at 2666 and urinalysis was relatively unremarkable. Chest x-ray had shown a lobar pneumonia and clinically he looked ill despite requiring only 2 L nasal cannula. Patient was admitted to the PCU for further evaluation. Overnight, patient started to develop hypotension. Patient was given 1 L normal saline, but overall has received over 6 L of saline since admission to the hospital. Patient was continued on ceftriaxone and azithromycin, but did have to be started on Levophed through a peripheral line. This morning, patient is unable to provide much additional history. Patient has been seen previously with sepsis secondary to a back wound, but did not recognize that we had cared for him previously. Patient was alert and oriented to himself only and unable to provide additional information. Telemetry is showing a flutter with 2-1 block. Patient was able to come off of Levophed this morning, but is requiring 4 L nasal cannula to maintain saturations. Unable to obtain review of systems secondary to patient's mental status. Past Medical History Past Medical History (Chronic Problems): Chronic Problems (Last Reviewed 03/10/20 @ 13:[address] Micky Mauro MD) Paroxysmal atrial fibrillation (Chronic) Right ventricular dilation (Chronic) Right ventricular systolic dysfunction (Chronic) Non-ischemic cardiomyopathy (Chronic) PSVT (paroxysmal supraventricular tachycardia) (Chronic) Chronic combined systolic and diastolic CHF (congestive heart failure) (Chronic) Secondary pulmonary arterial hypertension (Chronic) Right bundle branch block (RBBB) (Chronic) Essential (primary) hypertension (Chronic) Hyperlipidemia (Chronic) Hepatic cirrhosis (Chronic) History of non-Hodgkin's lymphoma (Chronic) Hypergammaglobulinemia (Chronic) Iron deficiency anemia (Chronic) Plasma cell dyscrasia (Chronic) EtOH dependence (Chronic) Non-healing surgical wound (Chronic) Open wound of lumbar region with complication (Chronic) h/o osteomyelitis and is chronic nonhealing surgical wound s/p lumbar decompression surgery Recurrent deep vein thrombosis (DVT) (Chronic) Medical History: Medical History (Last Reviewed 03/10/20 @ 13:[address] Micky Mauro MD) Paroxysmal atrial fibrillation (Chronic) I48.0 Right ventricular dilation (Chronic) I51.7 Right ventricular systolic dysfunction (Chronic) I51.9 Non-ischemic cardiomyopathy (Chronic) I42.8 PSVT (paroxysmal supraventricular tachycardia) (Chronic) I47.1 Chronic combined systolic and diastolic CHF (congestive heart failure) (Chronic) I50.42 Secondary pulmonary arterial hypertension (Chronic) I27.21 Right bundle branch block (RBBB) (Chronic) I45.10 Essential (primary) hypertension (Chronic) I10 Hyperlipidemia (Chronic) E78.5 Hepatic cirrhosis (Chronic) K74.60 History of non-Hodgkin's lymphoma (Chronic) Z85.72 Hypergammaglobulinemia (Chronic) D89.2 Iron deficiency anemia (Chronic) D50.9 Plasma cell dyscrasia (Chronic) E88.09 EtOH dependence (Chronic) F10.20 Non-healing surgical wound (Chronic) T81.89XA Open wound of lumbar region with complication (Chronic) S31.000A h/o osteomyelitis and is chronic nonhealing surgical wound s/p lumbar decompression surgery Recurrent deep vein thrombosis (DVT) (Chronic) I82.409 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 G06.1 Acute kidney injury superimposed on chronic kidney disease N17.9, N18.9 Ascites R18.8 Candidal dermatitis B37.2 Cellulitis and abscess of trunk L03.319, L02.219 Chronic kidney disease N18.9 Chronic ulcer of right leg with fat layer exposed L97.912 Contracture, right foot M24.574 Gout M10.9 History of alcohol consumption Z87.898 History of diverticulitis Z87.19 Hyperammonemia E72.20 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 for treatment of lymphoma Low testosterone in male R79.89 Lumbar disc disease M51.9 Lymphedema I89.0 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 of necrosis L98.496 nonhealing ulcer lumbar back area MARY JANE (obstructive sleep apnea) G47.33 Osteomyelitis of lumbar spine M46.26 Peripheral vascular disease I73.9 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 I83.025, L97.529 Venous stasis ulcer of heel with fat layer exposed I83.004, L97.402 Elevated troponin R79.89 History of pulmonary embolus (PE) Onset Date: 2004 Z86.711 Pericardial effusion I31.3 Aortic root dilatation I77.810 Ascending aorta dilatation I77.810 Acute on chronic diastolic (congestive) heart failure (Inactive) I50.33 Acute on chronic systolic (congestive) heart failure (Inactive) I50.23 Edema of lower extremity R60.0 Hepatic encephalopathy K72.90 Pulmonary embolism (Inactive) I26.99 Allergies chlorthalidone Allergy (Verified 03/14/20 07:40) Unknown ramipril [From Altace] Allergy (Verified 03/14/20 07:40) Unknown sulfamethoxazole [From Bactrim] Allergy (Verified 03/14/20 07:40) Other trazodone Allergy (Verified 03/14/20 07:40) Unknown trimethoprim [From Bactrim] Allergy (Verified 03/14/20 07:40) Other prednisone Adverse Reaction (Verified 03/14/20 07:40) Swelling only in big doses Home Medications: Ambulatory Orders Medication Instructions Recorded Folic Acid 1 mg PO DAILY@0800 02/05/16 Magnesium Oxide [Magnesium] 400 mg PO DAILY@0800 02/05/16 Vit C/E/Zn/Coppr/Lutein/Zeaxan 1 ea PO DAILY 07/04/17 [Preservision Areds 2 Softgel] Gabapentin 600 mg PO QHS 02/28/19 Apixaban [Eliquis] 2.5 mg PO BID 04/07/19 Gabapentin [Neurontin] 300 mg PO DAILY 04/21/19 hydromorphone 4 mg tablet 4 - 8 mg PO Q4H PRN tab 05/21/19 atorvastatin 20 mg tablet 20 mg PO QHS #90 tab 08/05/19 multivitamin 1 tab PO DAILY 03/10/20 testosterone cypionate 100 mg/mL 100 mg IM Q2W ml 03/10/20 intramuscular oil Cholecalciferol (VIT D3) [Vitamin 1,000 unit PO DAILY 03/14/20 D] Furosemide 60 mg PO BID 03/14/20 Lactulose [Chronulac, Cephulac] 20 gm PO BID PRN PRN 03/14/20 Metoprolol Succinate 50 mg PO DAILY 03/14/20 Surgical History: Surgical History (Last Reviewed 03/14/20 @ 14:17 by Sena Jackson [employer]AT CLEANING SUPERVISOR, BOAT CLEANING SUPERVISOR-C) History of laminectomy Z98.890 History of splenectomy Z90.81 Surgical History: colectomy - Partial., - - Splenectomy, Ileostomy reversal, L4- 5 discectomy. Wound debridement 03/04/2017, 05/14/2017 at [facility]> Psychiatric History: No pertinent psych hx Lives: Spouse/ Significant Other Smoking Status: Current every day smoker Alcohol: Occasional - 3 shots of vodka per day usually Drugs: None - *Family History Maternal Family History: Family History (Last Reviewed 03/10/20 @ 13:[address] Micky Mauro MD) Father Diabetes Heart disease Mother Heart disease History Items: Heart Disease Paternal Family History: Family History (Last Reviewed 03/10/20 @ 13:[address] Micky Mauro MD) Father Diabetes Heart disease Mother Heart disease History Items: Diabetes Review of Systems Unable to obtain accurate/complete ROS d/t: See HPI Patient Problems: Active and Suspected Problems (Last Reviewed 03/10/20 @ 13:[address] Micky Mauro MD) Sepsis due to pneumonia (Acute) Acute kidney injury (Acute) Hypoxemia (Acute) Elevated troponin (Acute) Objective: All imaging was personally reviewed. Review of the medical record shows patient does follow with Dr. Mauro in the heart group. Patient has had history of nonischemic cardiomyopathy with an EF of 25% that improved to 55% and also has a history of non-Hodgkin's lymphoma status post splenectomy. Per Dr. Mauro's recommendation, patient has had hepatic encephalopathy secondary to alcohol abuse in the past and has been noted to have heart rates routinely in the 120s. - Physical Exam Vitals/I&O's: Vital Signs Temp Pulse Resp BP Pulse Ox 36.4 C L 126 H 25 H 94/74 100 03/16/20 08:27 03/16/20 09:00 03/16/20 09:00 03/16/20 09:00 03/16/20 09:19 Oxygen Flow Rate (L/min) 3 Oxygen Delivery Method Nasal Cannula Weight: 105.4 kg Body Mass Index (BMI) 33.5 Intake and Output for Last 24 Hours 03/14/20 03/15/20 03/16/20 23:59 23:59 23:59 Intake Total 1595 / 1595 5266.75 / 5266.75 Output Total 300 / 300 425 / 425 0 / 0 Balance 1295 / 1295 4841.75 / 4841.75 General: Alert, Confused, Disoriented, - - Appears older than stated age. Obese. HEENT: Atraumatic, PERRLA, EOMI, Normocephalic, - - Slight scleral injection without icterus Oral: Moist Mucosa, No Gingival or Mucosal Lesions/ Ulcerations Neck: Supple, No Nodes, Trachea Midline, JVD, Right Lungs: Diminished, Rhonchi - Left base, Wheezes - Sporadic Cardiovascular: Normal S1, Normal S2, No murmurs, Irregular Rate, No rub noted, No Gallop, Tachycardic Abdomen: Bowel Sounds Present, Soft, Non Tender, Non-Distended, Obese Extremities: No clubbing, No cyanosis, - - Vascular insufficiency changes bilaterally Musculoskeletal: No Tenderness to Palpation of Joints or Extremities Lymphatic: No Cervical, Supraclavicular, or Inguinal Adenopathy Neurological: Cranial nerves II-XII grossly intact, Neuro grossly intact, Motor Exam 5/5 strength throughout Psych/Mental Status: Flat Affect, Restless Microbiology Past 72 Hours 03/14/20 09:25 Interface Orders Urine Culture - Final GPC Poss Enterococcus sp Gram negative briana 03/14/20 08:25 Blood Culture (Wb) - Right Forearm Blood Culture - Pr eliminary No growth in 48 hours. 03/14/20 07:50 Blood Culture (Wb) - Right Forearm Blood Culture - Preliminary No growth in 48 hours. 03/15/20 15:40 Stool C. difficile DNA Amplification - Final 03/14/20 09:30 Urine, Clean Catch Legionella Antigen - Final 03/14/20 09:30 Urine, Clean Catch Streptococcus pneumoniae Antigen (M - F inal Laboratory Results 03/15/20 15:50: Sodium 138, Potassium 4.5, Chloride 104, Carbon Dioxide 27.0, Anion Gap 7, BUN 75 H, Creatinine 3.02 H, Estim Creat Clear Calc 20.45, Est GFR (MDRD) Af Amer 26 L, Est GFR (MDRD) Non-Af 22 L, BUN/Creatinine Ratio 24.8 H, Glucose 108 H, Calcium 8.2 L 03/15/20 15:50: WBC 14.1 H, RBC 2.57 L, Hgb 9.4 L, Hct 30.5 L, MCV 118.7 H, MCH 36.6 H, MCHC 30.8 L, RDW Std Deviation 82.2 H, RDW Coeff of Reggie 19.0 H, Plt Count 221, MPV 10.4, Immature Gran % (Auto) 0.600, Neut % (Auto) 87.5 H, Lymph % (Auto) 3.0 L, Surry % (Auto) 8.8, Eos % (Auto) 0.0, Baso % (Auto) 0.1, Absolute Neuts (auto) 12.3 H, Absolute Lymphs (auto) 0.42 L, Nucleated RBC % 0.1, Differential Comment SCANNED, Anisocytosis 1+ 03/15/20 15:50: Lactic Acid 1.5 03/16/20 04:15: WBC 11.6 H, RBC 2.45 L, Hgb 8.9 L, Hct 29.9 L, MCV 122.0 H, MCH 36.3 H, MCHC 29.8 L, RDW Std Deviation 85.2 H, RDW Coeff of Reggie 19.1 H, Plt Count 203, MPV 10.2, Differential Comment SCANNED 03/16/20 04:15: Sodium 138, Potassium 4.0, Chloride 107, Carbon Dioxide 24.0, Anion Gap 7, BUN 72 H, Creatinine 2.99 H, Estim Creat Clear Calc 20.65, Est GFR (MDRD) Af Amer 26 L, Est GFR (MDRD) Non-Af 22 L, BUN/Creatinine Ratio 24.1 H, Glucose 90, Calcium 7.3 L Current Medications Acetaminophen (Acetaminophen 325 Mg Tablet) 650 mg PO Q6H PRN PRN PRN Reason: Pain Score 1-10/Temp > 100.7 F Last Admin: 03/15/20 22:02 Dose: 650 mg Documented by: Albuterol Sulfate (Albuterol 2.5 Mg/3 Ml Vial.Neb.) 2.5 mg INHALATION Q2H PRN PRN PRN Reason: DYSPNEA Apixaban (Apixaban 2.5 Mg Tablet) 2.5 mg PO BID [facility] Last Admin: 03/15/20 22:03 Dose: 2.5 mg Documented by: Atorvastatin Calcium (Atorvastatin Calcium 20 Mg Tablet) 20 mg PO QHS [facility] Last Admin: 03/15/20 22:03 Dose: 20 mg Documented by: Gabapentin (Gabapentin 600 Mg Tablet) 600 mg PO QHS [facility] Last Admin: 03/15/20 22:03 Dose: 600 mg Documented by: Gabapentin (Gabapentin 300 Mg Capsule) 300 mg PO DAILY [facility] Last Admin: 03/15/20 08:40 Dose: 300 mg Documented by: Hydromorphone HCl (Hydromorphone 2 Mg Tablet) 4 mg PO Q6H PRN PRN Reason: PAIN 1-10 OR FEVER Last Admin: 03/15/20 02:14 Dose: 4 mg Documented by: Ceftriaxone Sodium 2 gm/ (Sodium Chloride) 50 mls @ 100 mls/hr IV Q24H [facility] Last Infusion: 03/15/20 12:54 Dose: Infused Documented by: Azithromycin 500 mg/ Dextrose 255 mls @ 250 mls/hr IV Q24 [facility] Stop: 03/20/20 10:01 Last Infusion: 03/15/20 10:08 Dose: Infused Documented by: Sodium Chloride () 250 mls @ 15 mls/hr IV .[id number] PRN PRN Reason: Saline Flush Sodium Chloride () 250 mls @ 15 mls/hr IV .[id number] PRN PRN Reason: Additional IVPB Infusion Sodium Chloride () 1,000 mls @ 100 mls/hr IV .Q10H [facility] Last Admin: 03/16/20 09:00 Dose: 100 mls/hr Documented by: Norepinephrine Bitartrate 8 mg (/ Sodium Chloride) 250 mls @ 9.375 mls/hr CONT INF .[id number] SOFIA; Protocol Last Titration: 03/16/20 07:45 Dose: 5 mcg/min, 9.4 mls/hr Documented by: Magnesium Chloride (Magnesium Chloride 64 Mg Delay Rel.Tablet) 128 mg PO DAILY@0800 [facility] Last Admin: 03/15/20 08:39 Dose: 128 mg Documented by: Ondansetron HCl (Ondansetron 4 Mg/2 Ml Vial) 4 mg IV Q8H PRN PRN PRN Reason: NAUSEA/VOMITING Sodium Chloride (0.9% Saline Lock 10 Ml Syringe) 10 - 40 ml IV UD PRN PRN Reason: SALINE FLUSH Last Admin: 03/16/20 04:45 Dose: 10 ml Documented by: Clinical Impression(s) from Imaging Studies Chest X-Ray 03/15/20 15:40 IMPRESSION: 1. No change in lingular pneumonia. 2. Poor inspiration with some bibasilar atelectasis per Electronically Signed: Jorgito Enamorado MD at 16:15 EST Tel , Service support , Chest X-Ray 03/16/20 01:49 IMPRESSION: Ill-defined subpleural groundglass opacities are seen more prominent in the lung lingula, may represent atypical pneumonia or viral pneumonia (COVID-19 ?). Electronically Signed: Dereck Rojo, at 3:31 EST Tel , Service support , Assessment/Plan Active and Suspected Problems (Last Reviewed 03/10/20 @ 13:[address] Micky Mauro MD) Sepsis due to pneumonia (Acute) Acute kidney injury (Acute) Hypoxemia (Acute) Elevated troponin (Acute) RECOMMENDATIONS: 1. Consider cardiology consultation 2. Use fluid boluses instead of maintenance fluids for hydration 3. Wean oxygen as tolerated 4. Possible need for central line 5. Initiate CIWA protocol IMPRESSIONS: 1. Septic shock secondary to left lower lobe pneumonia Patient does have a significant left lower lobe infiltrate noted on chest x-ray. Patient has had pulmonary function tests suggesting restriction in the past. Patient does have purulent sputum. Patient would be at increased risk for bacteremia given his history of splenectomy. Clinical suspicion would be for a gram-negative pneumonia versus other infection. Continue current antibiotics pending culture data. 2. Acute hypoxic respiratory insufficiency secondary to community-acquired left lower lobe pneumonia Patient appears to be doing okay on 4 L nasal cannula. Some concern given his history of congestive heart failure and RVR that patient will have multifactorial respiratory failure. Patient is unable to give a CODE STATUS at this time. We will continue to monitor respiratory status. Do not believe patient will tolerate BiPAP well given his current mental status. 3. Acute kidney injury on CKD stage IV Patient's baseline appears to be about 1.8 and patient has been around 3 throughout the hospitalization. Patient would be at risk for hepatorenal syndrome given history of drinking. Prerenal etiology would also be a consideration. Will defer to primary service on whether nephrology needs to be involved, but no indication at this time for renal replacement therapy. 4. History of A. fib/flutter with RVR/cardiomyopathy Patient is followed by Dr. Mauro as an outpatient. Clinical suspicion for a need for amiodarone versus digoxin to control current symptomatology. Cons ider cardiology consultation as initiation of pressors and congestive heart failure will complicate overall condition. 5. History of DVT/PE on Eliquis Patient is on Eliquis at baseline. Patient does appear to have slightly distended abdomen and may have an element of ascites. We will hold off on a paracentesis for now, but this may need to be evaluated in the future. 6. Delirium with history of alcohol abuse Patient with acute metabolic encephalopathy from possible alcohol withdrawal. Tremor was noted. Will initiate CIWA protocol. 7. Hypertension/hyperlipidemia/history of non-Hodgkin's lymphoma status post splenectomy Complicates care, management, recovery and prognosis. Discontinue baseline antihypertensive medications. Recommend cardiology evaluation with possible amiodarone drip for rate control. Addendum 1543: Patient with decreasing mentation through the day. Multiple ABGs showed CO2 retention despite addition of AVAPS BiPAP. Discussed with patient's and patient was to be intubated. Patient was intubated using 20 mg of etomidate on the first attempt using direct laryngoscopy with a MAC 4?0 blade. A 7.5 endotracheal tube was advanced to 24 cm and secured. Resulting chest x-ray showed good position. Appropriate orders were placed. Patient also had a central line placed to facilitate pressor agents. TIME: 76 minutes critical care time spent addressing patient's septic shock, hypoxic respiratory insufficiency, acute kidney injury, A. fib with RVR, possible alcohol withdrawal, review of all data and collaboration with care team (8 AM to 10:40 AM, 1 PM to 3:43 PM) 9xxxx: [id number] Critical care first hour [facility] Codes - Hospitalists' Procedures Procedures: 61121 Critial Care Addl 30 Min
[2020-03-16] MEDS: APIXABAN 2.5 MG TABLET PO ×2 (10:34→21:44)
[2020-03-16] MEDS: Magnesium Chloride 64 MG Delay Rel.Tablet 128 MG PO (10:34)
[2020-03-16] MEDS: Gabapentin 300 MG Capsule PO (10:35)
[2020-03-16] MEDS: HYDROmorphone 2 MG TABLET 4 MG PO (10:41)
--- NOTE | 2020-03-16 11:40 | NURSING ---
This RN entered room to turn pt. Pt observed staring blankly to the R side and breathing shallow. Arouses when name called loudly. Pt seems agitated with care especially with repeated stimulation. Pt able to answer yes/no questions appropriately, knows he is in the hospital and denies any changes in vision. Oxygen increased to 6L d/t hypoxia in low 80s w/ shallow breaths. Dr. Pat notified of findings/recent dilaudid administration and ordered an ABG before consideration of narcan. VSS at this time except for borderline low BP. Will continue to monitor.
--- NOTE | 2020-03-16 12:20 | NURSING ---
Pt placed on NRB.
--- NOTE | 2020-03-16 12:39 | CPS ---
Critical values Dr. Funes informed about the values.
[2020-03-16 12:45] LABS: Allen Test Positive; Base Excess -3 mmol/L (-2 to +2); Bicarbonate 25.6 mmol/L (22-26); Blood Gas Specimen Type ART; FI02 100; O2 Delivery Device NRB; PO2 238 mmHG (75-100); SITE R Brach; SO2 100 % (95-99); Total Carbon Dioxide 28 mmol/L; pCO2 74.6 mmHg (35-45); pH 7.14 (7.35-7.45)
--- NOTE | 2020-03-16 12:48 | PN_ITS ---
Patient Problems: Active and Suspected Problems (Last Reviewed 03/10/20 @ 13:[address] Micky Mauro MD) Sepsis due to pneumonia (Acute) Acute kidney injury (Acute) Hypoxemia (Acute) Elevated troponin (Acute) Subjective: Feels a little bit better, though weak. Had to be transferred to the ICU for hypotension overnight. He was started on Levophed which has already been discontinued. Vitals/I&O's: Vital Signs Temp Pulse Resp BP Pulse Ox 97.2 F L 124 H 25 H 93/48 L 96 03/16/20 11:48 03/16/20 11:53 03/16/20 11:48 03/16/20 11:48 03/16/20 11:48 Oxygen Flow Rate (L/min) 6 Oxygen Delivery Method Nasal Cannula Weight: 232 lb 5.875 oz Body Mass Index (BMI) 33.5 Intake and Output for Last 24 Hours 03/14/20 03/15/20 03/16/20 23:59 23:59 23:59 Intake Total 1595 / 1595 5266.75 / 5266.75 2524.57 / 2524.57 Output Total 300 / 300 425 / 425 0 / 0 Balance 1295 / 1295 4841.75 / 4841.75 2524.57 / 2524.57 General: Alert, Confused, Disoriented HEENT: Atraumatic, PERRLA, EOMI, Normocephalic Oral: Moist Mucosa Neck: Supple, No JVD Lungs: Normal air movement, Diminished, Rhonchi, Wheezes Cardiovascular: Regular Rhythm, Normal S1, Normal S2, No murmurs, Tachycardic Abdomen: Soft, Non Tender, Non-Distended, No Hepato-splenomegaly Extremities: No edema, Capillary Refill Less than 3 Seconds Skin: No rashes, No breakdown Neurological: Neuro grossly intact, Sensory exam intact to light touch and pain Psych/Mental Status: Anxious, Flat Affect Microbiology Past 72 Hours 03/15/20 08:55 Sputum, Expectorated/Coughed Gram Stain - Final 03/15/20 08:55 Sputum, Expectorated/Coughed Respiratory Culture - Preliminary Appears to be normal respiratory ignacio. Further studies to follow. 03/14/20 09:25 Interface Orders Urine Culture - Final GPC Poss Enterococcus sp Gram negative briana 03/14/20 08:25 Blood Culture (Wb) - Right Forearm Blood Culture - Preliminary No growth in 48 hours. 03/14/20 07:50 Blood Culture (Wb) - Right Forearm Blood Culture - Preliminary No growth in 48 hours. 03/15/20 15:40 Stool C. difficile DNA Amplification - Final 03/14/20 09:30 Urine, Clean Catch Legionella Antigen - Final 03/14/20 09:30 Urine, Clean Catch Streptococcus pneumoniae Antigen (M - Final Laboratory Results 03/15/20 15:50: Sodium 138, Potassium 4.5, Chloride 104, Carbon Dioxide 27.0, Anion Gap 7, BUN 75 H, Creatinine 3.02 H, Estim Creat Clear Calc 20.45, Est GFR (MDRD) Af Amer 26 L, Est GFR (MDRD) Non-Af 22 L, BUN/Creatinine Ratio 24.8 H, Glucose 108 H, Calcium 8.2 L 03/15/20 15:50: WBC 14.1 H, RBC 2.57 L, Hgb 9.4 L, Hct 30.5 L, MCV 118.7 H, MCH 36.6 H, MCHC 30.8 L, RDW Std Deviation 82.2 H, RDW Coeff of Reggie 19.0 H, Plt Count 221, MPV 10.4, Immature Gran % (Auto) 0.600, Neut % (Auto) 87.5 H, Lymph % (Auto) 3.0 L, [place] % (Auto) 8.8, Eos % (Auto) 0.0, Baso % (Auto) 0.1, Absolute Neuts (auto) 12.3 H, Absolute Lymphs (auto) 0.42 L, Nucleated RBC % 0.1, Diff erential Comment SCANNED, Anisocytosis 1+ 03/15/20 15:50: Lactic Acid 1.5 03/16/20 04:15: WBC 11.6 H, RBC 2.45 L, Hgb 8.9 L, Hct 29.9 L, MCV 122.0 H, MCH 36.3 H, MCHC 29.8 L, RDW Std Deviation 85.2 H, RDW Coeff of Reggie 19.1 H, Plt Count 203, MPV 10.2, Differential Comment SCANNED 03/16/20 04:15: Sodium 138, Potassium 4.0, Chloride 107, Carbon Dioxide 24.0, Anion Gap 7, BUN 72 H, Creatinine 2.99 H, Estim Creat Clear Calc 20.65, Est GFR (MDRD) Af Amer 26 L, Est GFR (MDRD) Non-Af 22 L, BUN/Creatinine Ratio 24.1 H, Glucose 90, Calcium 7.3 L 03/16/20 12:38: Specimen Type ART, Sample Site R Brach, pH 7.14 L*, Bicarbonate Actual 25.6, Total CO2 28, Base Excess -3 L, O2 Saturation 100 H, O2 % 100, ABG pCO2 74.6 H*, ABG pO2 238 H, Arturo Test Positive, O2 Delivery Device NRB Current Medications Acetaminophen (Acetaminophen 325 Mg Tablet) 650 mg PO Q6H PRN PRN PRN Reason: Pain Score 1-10/Temp > 100.7 F Last Admin: 03/15/20 22:02 Dose: 650 mg Documented by: Albuterol Sulfate (Albuterol 2.5 Mg/3 Ml Vial.Neb.) 2.5 mg INHALATION Q2H PRN PRN PRN Reason: DYSPNEA Apixaban (Apixaban 2.5 Mg Tablet) 2.5 mg PO BID [facility] Last Admin: 03/16/20 10:34 Dose: 2.5 mg Documented by: Atorvastatin Calcium (Atorvastatin Calcium 20 Mg Tablet) 20 mg PO QHS [facility] Last Admin: 03/15/20 22:03 Dose: 20 mg Documented by: Folic Acid (Folic Acid 1 Mg Tablet) 1 mg PO DAILY@0800 [facility] Stop: 03/18/20 08:01 Gabapentin (Gabapentin 600 Mg Tablet) 600 mg PO QHS [facility] Last Admin: 03/15/20 22:03 Dose: 600 mg Documented by: Gabapentin (Gabapentin 300 Mg Capsule) 300 mg PO DAILY [facility] Last Admin: 03/16/20 10:35 Dose: 300 mg Documented by: Hydromorphone HCl (Hydromorphone 2 Mg Tablet) 4 mg PO Q6H PRN PRN Reason: PAIN 1-10 OR FEVER Last Admin: 03/16/20 10:41 Dose: 4 mg Documented by: Ceftriaxone Sodium 2 gm/ (Sodium Chloride) 50 mls @ 100 mls/hr IV Q24H [facility] Last Admin: 03/16/20 12:43 Dose: 100 mls/hr Documented by: Azithromycin 500 mg/ Dextrose 255 mls @ 250 mls/hr IV Q24 [facility] Stop: 03/20/20 10:01 Last Infusion: 03/16/20 12:21 Dose: Infused Documented by: Sodium Chloride () 250 mls @ 15 mls/hr IV .[id number] PRN PRN Reason: Saline Flush Sodium Chloride () 250 mls @ 15 mls/hr IV .[id number] PRN PRN Reason: Additional IVPB Infusion Sodium Chloride () 1,000 mls @ 100 mls/hr IV .Q10H [facility] Last Infusion: 03/16/20 12:00 Dose: 100 mls/hr Documented by: Norepinephrine Bitartrate 8 mg (/ Sodium Chloride) 250 mls @ 9.375 mls/hr CONT INF .[id number] [facility]; Protocol Last Titration: 03/16/20 08:30 Dose: 0 mcg/min, 0 mls/hr Documented by: Lorazepam (Lorazepam 1 Mg Tablet) 2 mg PO Q2H PRN PRN; Protocol PRN Reason: CIWA score > 8 but <15 Lorazepam (Lorazepam 1 Mg Tablet) 2 mg PO UD PRN; Protocol PRN Reason: CIWA score >/=15. Lorazepam (Lorazepam 2 Mg/Ml Syringe) 2 mg IV Q2H PRN PRN; Protocol PRN Reason: CIWA score > 8 but <15 Lorazepam (Lorazepam 2 Mg/Ml Syringe) 2 mg IV UD PRN; Protocol PRN Reason: CIWA score >/=15. Magnesium Chloride (Magnesium Chloride 64 Mg Delay Rel.Tablet) 128 mg PO DAILY @0800 [facility] Last Admin: 03/16/20 10:34 Dose: 128 mg Documented by: Ondansetron HCl (Ondansetron 4 Mg/2 Ml Vial) 4 mg IV Q8H PRN PRN PRN Reason: NAUSEA/VOMITING Sodium Chloride (0.9% Saline Lock 10 Ml Syringe) 10 - 40 ml IV UD PRN PRN Reason: SALINE FLUSH Last Admin: 03/16/20 04:45 Dose: 10 ml Documented by: Thiamine HCl (Thiamine Hydrochloride 100 Mg Tablet) 100 mg PO BIDCM [facility] Stop: 03/18/20 17:01 STROKE Vital Signs/Narrative: Vital Signs Temp Pulse Resp BP Pulse Ox 03/16/20 11:53 124 H 03/16/20 11:48 97.2 F L 125 H 25 H 93/48 L 96 03/16/20 10:00 128 H 29 H 90/66 100 03/16/20 09:19 100 03/16/20 09:00 126 H 25 H 94/74 97 03/16/20 08:51 125 H 97 Medical Necessity - Tobacco Use Smoking Status: Current every day smoker Assessment/Plan All Active Problems (Last Reviewed 03/10/20 @ 13:[address] Micky Mauro MD) Sepsis due to pneumonia (Acute) Acute kidney injury (Acute) Hypoxemia (Acute) Elevated troponin (Acute) Elevated INR (Resolved) Skin tear of left elbow without complication (Resolved) 1. 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 History of paroxysmal A. fib/A-flutter/HTN/HLD/indeterminate troponin/nonischemic cardiomyopathy -His troponin was slightly elevated to 0.197 his BNP on admission was 2666, the troponin was likely secondary to his tachycardia as well as sepsis -When able we will need to restart his Lasix -We will continue to hold his blood pressure medication -In 2019, EF was 55% with pulmonary artery systolic pressure 46 mmHg 3. History of DVT/PE -Stable -Continue with Eliquis 4. Nonhealing surgical wounds of his lower back -We will consult wound care nurse for evaluation -These are secondary to surgical debridement for an abscess following lumbar spine surgery 5. Chronic alcoholic cirrhosis/anemia of chronic disease -Hold his Lasix and his lactulose secondary to his septic shock -His anemia is at baseline likely related to his cirrhosis as well as his c hronic kidney disease DVT prophylaxis- Eliquis Inpatient E&M: 74187 Subs Hosp L2
--- NOTE | 2020-03-16 14:06 | CPS ---
Dr. Funes was notified of the critical gas
[2020-03-16 14:11] LABS: Allen Test Positive; Base Excess -4 mmol/L (-2 to +2); Bicarbonate 24.9 mmol/L (22-26); Blood Gas Specimen Type ART; FI02 50; Mode BiLevel; O2 Delivery Device BiPAP; PEEP 5; PO2 66 mmHG (75-100); RR 16; SITE L Radial; SO2 86 % (95-99); Total Carbon Dioxide 27 mmol/L; Vt 475; pCO2 68.9 mmHg (35-45); pH 7.17 (7.35-7.45)
--- NOTE | 2020-03-16 14:24 | NURSING ---
Call placed to pt's Yolanda, discussed need for intubation at this time. Pt stated she wanted to speak with son and get back to us temitope.
--- NOTE | 2020-03-16 14:33 | RAD_ITS ---
STUDY: X-RAY CHEST REASON FOR EXAM: Male, 74 years old. CENTRAL LINE PLACEMENT. IMAGE VIEWED BY DR. URRUTIA. TECHNIQUE: Single AP portable view of the chest. COMPARISON: 03/16/2020 FINDINGS: Interval placement of a right internal jugular deep venous line with tip the catheter overlying the right brachiocephalic vein and no pneumothorax. Poor inspiration with some bibasilar atelectasis. There is no demonstrated pleural abnormality. There is moderate cardiac enlargement. Normal mediastinum and raquel. Normal visualized pulmonary arteries. Normal visualized aortic arch and descending thoracic aorta. Normal visualized thoracic spine. Normal visualized ribs, clavicles, and shoulders. There is no demonstrated abnormality of the visualized soft tissue structures of the upper abdomen. RAD/CXR for Line Placement IMPRESSION: Interval placement of right internal jugular deep venous line with tip of the catheter overlying the right brachiocephalic vein and no pneumothorax. Electronically Signed: Jorgito Enamorado MD at 15:05 EST Tel , Service support ,
--- NOTE | 2020-03-16 14:40 | PCM.OPRPT ---
Report of Operation Date of Procedure: 03/16/20 Surgery/Procedure Performed:: Triple-lumen catheter insertion Description of Surgical Findings:: Central line placement procedure note Indication: IV access/hemodynamic instability/vasoactive medications Procedure: A time-out was completed to verify correct patient, indication, medication allergies, procedure, coagulation studies, informed consent signed, and equipment needed. The patient was placed in the supine position for a central line placement to the rt IJ vein. The patients rt neck was prepped using chlorhexidine and a full body sterile drape was applied. 1% lidocaine was used to anesthetize the surrounding skin. A 7fr 16 cm blue guard triple lumen catheter introduced into the internal jugular vein using the modified Seldinger technique with the assistance of ultrasound. The catheter was threaded smoothly over the guidewire, the guidewire was removed easily, nonpulsatile blood returned. All ports were aspirated of air and flushed with sterile saline. The catheter was sutured in place and covered with an occlusive dressing impregnated with chlorhexidine. Post-procedure: The patient tolerated the procedure well. Vital signs remained stable. EBL 7cc. No complications. Chest X Ray ordered to confirm tip placement and the absence of pneumothorax. Procedures: [id number] Insert Non-tunnel CV Cath
[2020-03-16] MEDS: Etomidate 20 MG/10 ML Vial IV (15:00)
--- NOTE | 2020-03-16 15:03 | RAD_ITS ---
STUDY: X-RAY CHEST REASON FOR EXAM: Male, 74 years old. ETT, OG AND LINE PLACEMENT TECHNIQUE: Single AP portable view of the chest. COMPARISON: 03/16/2020 at 1435 FINDINGS: Interval placement of endotracheal tube with the tip approximately 2 cm above the osmany. Interval placement of nasogastric tube with the tip below the diaphragm. Right internal jugular deep venous line which is unchanged. No change in the alveolar opacity in the lower left lung consistent with left lower lobe pneumonia. There is no demonstrated pleural abnormality. There is moderate cardiac enlargement. Normal mediastinum and raquel. Normal visualized pulmonary arteries. Normal visualized aortic arch and descending thoracic aorta. Normal visualized thoracic spine. Normal visualized ribs, clavicles, and shoulders. There is no demonstrated abnormality of the visualized soft tissue structures of the upper abdomen. RAD/Chest 1 View (Portable) IMPRESSION: 1. Interval placement of endotracheal tube with the tip approximately 2 cm above the osmany. 2. Interval placement of nasogastric tube with the tip below the diaphragm. 3. Right internal jugular deep venous line which is unchanged. 4. No change in left lower lobe pneumonia per Electronically Signed: Jorgito Enamorado MD at 15:34 EST Tel , Service support ,
[2020-03-16] MEDS: Propofol 10MG/Ml 1,000 MG/100 ML Bottle 6.3 MG CONT INF (15:05)
[2020-03-16] MEDS: Folic Acid 1 MG Tablet PO (17:18)
[2020-03-16] MEDS: Thiamine Hydrochloride 100 MG Tablet PO (17:18)
[2020-03-16 17:50] LABS: CPK Total, Creatine Kinase 29 U/L (39-308); Triglycerides 65 mg/dL
[2020-03-16] MEDS: Amiodarone 360 MG in Dextrose 5% Viaflo Bag 192.8 ML 33.3 MG CONT INF (19:06)
[2020-03-16 20:41] LABS: Allen Test Positive; Base Excess -5 mmol/L (-2 to +2); Blood Gas Specimen Type ART; FI02 50; Mode AC; O2 Delivery Device Adult Vent; PEEP 5; PO2 94 mmHG (75-100); RR 12; SITE R Radial; SO2 96 % (95-99); Total Carbon Dioxide 24 mmol/L; Vt 450; pCO2 49.6 mmHg (35-45); pH 7.25 (7.35-7.45)
--- NOTE | 2020-03-16 21:19 | CPS ---
patient weaned to .40%
[2020-03-16] MEDS: Atorvastatin Calcium 20 MG Tablet PO (21:44)
[2020-03-16] MEDS: Gabapentin 600 MG Tablet PO (21:45)
[2020-03-16] MEDS: Chlorhexidine 15 ML PO (22:00)
[2020-03-17] VITALS (66 sets, daily range): BP systolic 86–126; BP diastolic 57–82; PULSE 105–131; RESP 12–19; TEMP 36.6–37.5; O2SAT 87–99; BMI 35.3
[2020-03-17] MEDS: Amiodarone 360 MG in Dextrose 5% Viaflo Bag 192.8 ML 16.7 MG CONT INF ×2 (01:00→12:34)
[2020-03-17] MEDS: Propofol 10MG/Ml 1,000 MG/100 ML Bottle 6.3 MG CONT INF (03:00)
--- NOTE | 2020-03-17 03:36 | CPS ---
PATIENT WEANED TO .35%
--- NOTE | 2020-03-17 04:58 | CPS ---
NURSING INFORMED RT THAT SCREEN WAS A FAIL DUE TO AGITATION.
[2020-03-17 05:34] LABS: Absolute Lymphocyte Count 0.46 X10^3/uL (0.83-4.51); Absolute Neutrophil Count 8.8 X10^3/uL (2.0-7.7); Basophil# 0.03 X10^3/uL; Basophil% 0.3 % (0-1); Eosinophil# 0.02 X10^3/uL; Eosinophils% 0.2 % (0-5); Hematocrit 34.8 % (40-54); Hemoglobin 10.8 g/dL (13.0-16.5); Lymphocyte # 0.46 X10^3/ul (4.0); Lymphocyte % 4.5 % (19-41); Mean Corpuscular Hgb 36.2 pg (27.0-32.0); Mean Corpuscular Volume 116.8 fL (80-94); Mean Platelet Vol. 10.9 fl (6.2-12.0); Monocyte% 8.7 % (0-10); NRBC Flagged by Analyzer 0.4 % (0-5); Neutrophil # 8.82 X10^3/uL (2.7-7.7); Neutrophil % 85.5 % (47-70); POSITIVE DIFFERENTIAL YES; POSITIVE MORPHOLOGY YES; Platelet Count 227 K/mm3 (150-450); RBC Distribution Width CV 18.8 % (11.6-14.6); RBC Distribution Width SD 80.5 fl (35.1-43.9); Red Blood Count 2.98 M/mm3 (4.6-6.2); White Blood Count 10.3 K/mm3 (4.4-11.0)
[2020-03-17 05:47] LABS: Differential Indicated SCAN CRITERIA MET
[2020-03-17 05:51] LABS: ALB/GLOB Ratio 0.3 RATIO (0.9-2.4); AST(SGOT) 62 U/L (15-37); Alanine Aminotransfer ALT/SGPT 26 U/L (16-61); Albumin, Serum 1.6 g/dL (3.2-5.0); Alkaline Phosphatase 74 U/L (45-117); Anion Gap 9 (5-15); BUN 84 mg/dL (7-18); BUN/Creat Ratio 24.1 RATIO (10-20); Calcium,Total 7.8 mg/dL (8.5-10.1); Chloride 107 mmol/L (98-107); Creatinine, Serum 3.49 mg/dL (0.70-1.30); EST Glomerular Filtration Rate 18 mL/min (>60); Est Glom Filt Rate - Afr Amer 22 mL/min (>60); Estimated Creatinine Clearance 17.69 ml/min; Globulin 5.7 g/dL (2.2-4.2); Glucose 111 mg/dL (74-106); Potassium 4.8 mmol/L (3.5-5.1); Protein, Total 7.3 g/dL (6.4-8.2); Sodium Level 138 mmol/L (136-145)
[2020-03-17 06:07] LABS: Anisocytosis 2+; Differential Comment SCANNED; Macrocytosis 2+; Platelet Estimate ADEQUATE (ADEQ)
--- NOTE | 2020-03-17 07:33 | PN_ITS ---
Subjective: Patient did okay overnight. Patient did have a lower heart rate with initiation of amiodarone, but still remains tachycardic. Patient also remains on Levophed at 16. Patient had a spontaneous awakening trial this morning, but was discontinued secondary to a heart rate of greater than 130. Patient becomes agitated with waking and has not follow commands on my evaluation. General: - - Intubated and sedated. Not following commands. Good vent synchrony noted. HEENT: Atraumatic, PERRLA, EOMI, Normocephalic, - - No scleral icterus or injection noted Oral: No Gingival or Mucosal Lesions/ Ulcerations, Dry Mucosa Neck: Supple, No JVD, No Nodes, Trachea Midline, - - Some oozing noted around central line site Lungs: No rales, Diminished, Rhonchi - Left base, Wheezes - Sporadic Cardiovascular: Normal S1, Normal S2, No murmurs, No rub noted, No Gallop, Tachycardic Abdomen: Bowel Sounds Present, Soft, Non Tender, Non-Distended, Obese Extremities: No cyanosis, Edema Skin: - - No change compared to previous Musculoskeletal: No Tenderness to Palpation of Joints or Extremities Lymphatic: No Cervical, Supraclavicular, or Inguinal Adenopathy Neurological: Cranial nerves II-XII grossly intact, Neuro grossly intact, Motor Exam 5/5 strength throughout Psych/Mental Status: Flat Affect, Impulsive Vital Signs Temp Pulse Resp BP Pulse Ox 36.9 C 110 H 13 102/69 97 03/17/20 07:00 03/17/20 07:15 03/17/20 07:00 03/17/20 07:15 03/17/20 07:00 Oxygen Flow Rate (L/min) 6 Oxygen Delivery Method Mechanical Ventilator Weight: 105.4 kg Body Mass Index (BMI) 33.5 Intake and Output for Last 24 Hours 03/15/20 03/16/20 03/17/20 23:59 23:59 23:59 Intake Total 5266.75 / 5266.75 3219.31 / 3301.41 534.40 / 534.40 Output Total 425 / 425 160 / 160 130 / 130 Balance 4841.75 / 4841.75 3059.31 / 3141.41 404.40 / 404.40 Labs (Last 48 Hours) 03/15/20 03/15/20 03/15/20 15:50 15:50 15:50 WBC 14.1 H RBC 2.57 L Hgb 9.4 L Hct 30.5 L MCV 118.7 H MCH 36.6 H MCHC 30.8 L RDW Std Deviation 82.2 H RDW Coeff of Reggie 19.0 H Plt Count 221 MPV 10.4 Immature Gran % (Auto) 0.600 Neut % (Auto) 87.5 H Lymph % (Auto) 3.0 L [place] % (Auto) 8.8 Eos % (Auto) 0.0 Baso % (Auto) 0.1 Absolute Neuts (auto) 12.3 H Absolute Lymphs (auto) 0.42 L Nucleated RBC % 0.1 Differential Comment SCANNED Platelet Estimate Anisocytosis 1+ Macrocytosis Specimen Type Sample Site pH Bicarbonate Actual Total CO2 Base Excess O2 Saturation O2 % ABG pCO2 ABG pO2 Arturo Test Respiration Rate O2 Delivery Device Vent Mode Tidal Volume POC PEEP Sodium 138 Potassium 4.5 Chloride 104 Carbon Dioxide 27.0 Anion Gap 7 BUN 75 H Creatinine 3.02 H Estim Creat Clear Calc 20.45 Est GFR (MDRD) Af Amer 26 L Est GFR (MDRD) Non-Af 22 L BUN/Creatinine Ratio 24.8 H Glucose 108 H Lactic Acid 1.5 Calcium 8.2 L Total Bilirubin AST ALT Alkaline Phosphatase Total Creatine Kinase Total Protein Albumin Globulin Albumin/Globulin Ratio Triglycerides 03/16/20 03/16/20 03/16/20 04:15 04:15 04:15 WBC 11.6 H RBC 2.45 L Hgb 8.9 L Hct 29.9 L MCV 122.0 H MCH 36.3 H MCHC 29.8 L RDW Std Deviation 85.2 H RDW Coeff of Reggie 19.1 H Plt Count 203 MPV 10.2 Immature Gran % (Auto) Neut % (Auto) Lymph % (Auto) [place] % (Auto) Eos % (Auto) Baso % (Auto) Absolute Neuts (auto) Absolute Lymphs (auto) Nucleated RBC % Differential Comment SCANNED Platelet Estimate Anisocytosis Macrocytosis Specimen Type Sample Site pH Bicarbonate Actual Total CO2 Base Excess O2 Saturation O2 % ABG pCO2 ABG pO2 Arturo Test Respiration Rate O2 Delivery Device Vent Mode Tidal Volume POC PEEP Sodium 138 Potassium 4.0 Chloride 107 Carbon Dioxide 24.0 Anion Gap 7 BUN 72 H Creatinine 2.99 H Estim Creat Clear Calc 20.65 Est GFR (MDRD) Af Amer 26 L Est GFR (MDRD) Non-Af 22 L BUN/Creatinine Ratio 24.1 H Glucose 90 Lactic Acid Calcium 7.3 L Total Bilirubin AST ALT Alkaline Phosphatase Total Creatine Kinase 29 L Total Protein Albumin Globulin Albumin/Globulin Ratio Triglycerides 65 03/16/20 03/16/20 03/16/20 12:38 14:05 20:33 WBC RBC Hgb Hct MCV MCH MCHC RDW Std Deviation RDW Coeff of Reggie Plt Count MPV Immature Gran % (Auto) Neut % (Auto) Lymph % (Auto) [place] % (Auto) Eos % (Auto) Baso % (Auto) Absolute Neuts (auto) Absolute Lymphs (auto) Nucleated RBC % Differential Comment Platelet Estimate Anisocytosis Macrocytosis Specimen Type ART ART ART Sample Site R Brach L Radial R Radial pH 7.14 L* 7.17 L* 7.25 L Bicarbonate Actual 25.6 24.9 22.0 Total CO2 28 27 24 Base Excess -3 L -4 L -5 L O2 Saturation 100 H 86 L 96 O2 % 100 50 50 ABG pCO2 74.6 H* 68.9 H* 49.6 H ABG pO2 238 H 66 L 94 Arturo Test Positive Positive Positive Respiration Rate 16 12 O2 Delivery Device NRB BiPAP Adult Vent Vent Mode BiLevel AC Tidal Volume 475 450 POC PEEP 5 5 Sodium Potassium Chloride Carbon Dioxide Anion Gap BUN Creatinine Estim Creat Clear Calc Est GFR (MDRD) Af Amer Est GFR (MDRD) Non-Af BUN/Creatinine Ratio Glucose Lactic Acid Calcium Total Bilirubin AST ALT Alkaline Phosphatase Total Creatine Kinase Total Protein Albumin Globulin Albumin/Globulin Ratio Triglycerides 03/17/20 03/17/20 05:05 05:05 WBC 10.3 RBC 2.98 L Hgb 10.8 L Hct 34.8 L MCV 116.8 H MCH 36.2 H MCHC 31.0 L RDW Std Deviation 80.5 H RDW Coeff of Reggie 18.8 H Plt Count 227 MPV 10.9 Immature Gran % (Auto) 0.800 Neut % (Auto) 85.5 H Lymph % (Auto) 4.5 L [place] % (Auto) 8.7 Eos % (Auto) 0.2 Baso % (Auto) 0.3 Absolute Neuts (auto) 8.8 H Absolute Lymphs (auto) 0.46 L Nucleated RBC % 0.4 Differential Comment SCANNED Platelet Estimate ADEQUATE Anisocytosis 2+ Macrocytosis 2+ Specimen Type Sample Site pH Bicarbonate Actual Total CO2 Base Excess O2 Saturation O2 % ABG pCO2 ABG pO2 Arturo Test Respiration Rate O2 Delivery Device Vent Mode Tidal Volume POC PEEP Sodium 138 Potassium 4.8 Chloride 107 Carbon Dioxide 22.0 Anion Gap 9 BUN 84 H Creatinine 3.49 H Estim Creat Clear Calc 17.69 Est GFR (MDRD) Af Amer 22 L Est GFR (MDRD) Non-Af 18 L BUN/Creatinine Ratio 24.1 H Glucose 111 H Lactic Acid Calcium 7.8 L Total Bilirubin 0.40 AST 62 H ALT 26 Alkaline Phosphatase 74 Total Creatine Kinase Total Protein 7.3 Albumin 1.6 L Globulin 5.7 H Albumin/Globulin Ratio 0.3 L Triglycerides Microbiology 03/16/20 09:15 Sputum, Expectorated/Coughed Gram Stain - Final 03/15/20 08:55 Sputum, Expectorated/Coughed Gram Stain - Final 03/15/20 08:55 Sputum, Expectorated/Coughed Respiratory Culture - Preliminary Appears to be normal respiratory ignacio. Further studies to follow. 03/14/20 09:25 Interface Orders Urine Culture - Final GPC Poss Enterococcus sp Gram negative briana 03/14/20 08:25 Blood Culture (Wb) - Right Forearm Blood Culture - Preliminary No growth in 48 hours. 03/14/20 07:50 Blood Culture (Wb) - Right Forearm Blood Culture - Preliminary No growth in 48 hours. 03/15/20 15:40 Stool C. difficile DNA Amplification - Final Clinical Impression(s) from Imaging Studies Chest X-Ray 03/16/20 14:33 IMPRESSION: Interval placement of right internal jugular deep venous line with tip of the catheter overlying the right brachiocephalic vein and no pneumothorax. Electronically Signed: Jorgito Enamorado MD at 15:05 EST Tel , Service support , Chest X-Ray 03/16/20 15:03 IMPRESSION: 1. Interval placement of endotracheal tube with the tip approximately 2 cm above the osmany. 2. Interval placement of nasogastric tube with the tip below the diaphragm. 3. Right internal jugular deep venous line which is unchanged. 4. No change in left lower lobe pneumonia per Electronically Signed: Jorgito Enamorado MD at 15:34 EST Tel , Service support , Medical Necessity - Tobacco Use Smoking Status: Current every day smoker Assessment/Plan All Active Problems (Last Reviewed 03/10/20 @ 13:[address] Micky Mauro MD) Sepsis due to pneumonia (Acute) Acute kidney injury (Acute) Hypoxemia (Acute) Elevated troponin (Acute) Elevated INR (Resolved) Skin tear of left elbow without complication (Resolved) RECOMMENDATIONS: 1. Continue amiodarone drip. Possibly obtain cardiology input 2. Wean Levophed as tolerated 3. Wean oxygen as tolerated 4. Possibly obtain nephrology consult tomorrow if kidney function continues to worsen 5. Continue antibiotics pending culture data IMPRESSIONS: 1. Septic shock secondary to left lower lobe pneumonia Patient does have a significant left lower lobe infiltrate noted on chest x-ray. Patient has had pulmonary function tests suggesting restriction in the past. Patient has multiple cultures pending including an expectorated and a tracheal aspirate. Patient would be at increased risk for bacteremia given his history of splenectomy. Clinical suspicion would be for a gram-negative pneumonia versus other infection. Continue current antibiotics pending culture data. Continue current antibiotics for now as leukocytosis and fever curve appear to be improving. 2. Acute hypoxic respiratory insufficiency secondary to community-acquired left lower lobe pneumonia Patient with hypercarbic respiratory failure developing yesterday. Uncle ar if this is related to worsening renal function, severe sepsis, lower lobe pneumonia or medications. Patient appears to have responded to intubation appropriately. Continue with spontaneous breathing and awakening trials per protocol. 3. Acute kidney injury on CKD stage IV Patient's baseline appears to be about 1.8 and patient has been around 3 throughout the hospitalization. Patient would be at risk for hepatorenal syndrome given history of drinking. Prerenal etiology would also be a consideration. Renal function is slightly worse today, but this may be s econdary to hypotension. If not improved by tomorrow, anticipate nephrology consult with possible hemodialysis. 4. History of A. fib/flutter with RVR/cardiomyopathy Patient is followed by Dr. Mauro as an outpatient. Clinical suspicion for a need for amiodarone versus digoxin to control current symptomatology. Consider cardiology consultation as initiation of pressors and congestive heart failure will complicate overall condition. Patient does appear to be improved on amiodarone 5. History of DVT/PE on Eliquis Patient is on Eliquis at baseline. Patient does appear to have slightly distended abdomen and may have an element of ascites. We will hold off on a paracentesis for now, but this may need to be evaluated in the future. 6. Delirium with history of alcohol abuse Patient with acute metabolic encephalopathy from possible alcohol withdrawal. Tremor was noted. Patient currently on systemic sedation, so CIWA protocol is not indicated 7. Hypertension/hyperlipidemia/history of non-Hodgkin's lymphoma status post splenectomy Complicates care, management, recovery and prognosis. Discontinue baseline antihypertensive medications. Recommend cardiology evaluation with possible amiodarone drip for rate control. TIME: 34 minutes critical care time spent addressing patient's septic shock, hypoxic respiratory insufficiency, acute kidney injury, A. fib with RVR, possible alcohol withdrawal, review of all data and collaboration with care team (6:30 AM to 7:30 AM) [phone]: [id number] Critical care first hour
[2020-03-17] MEDS: Chlorhexidine 15 ML PO ×2 (10:43→22:48)
[2020-03-17] MEDS: Thiamine Hydrochloride 100 MG Tablet GT ×2 (10:44→18:13)
[2020-03-17] MEDS: APIXABAN 2.5 MG TABLET GT ×2 (10:44→22:28)
[2020-03-17] MEDS: Gabapentin 300 MG Capsule GT (10:44)
[2020-03-17] MEDS: Folic Acid 1 MG Tablet GT (10:50)
[2020-03-17] MEDS: Magnesium Chloride 64 MG Delay Rel.Tablet 128 MG PO (10:50)
--- NOTE | 2020-03-17 10:53 | PCM.PN.HOSP ---
Patient Problems: Active and Suspected Problems (Last Reviewed 03/10/20 @ 13:[address] Micky Mauro MD) Sepsis due to pneumonia (Acute) Acute kidney injury (Acute) Hypoxemia (Acute) Elevated troponin (Acute) Subjective: Did and sedated, he does open his eyes and is able to follow simple commands. No issues overnight Vitals/I&O's: Vital Signs Temp Pulse Resp BP Pulse Ox 98.3 F 129 H 15 108/69 96 03/17/20 08:00 03/17/20 10:00 03/17/20 10:00 03/17/20 10:00 03/17/20 10:00 Oxygen Flow Rate (L/min) 6 Oxygen Delivery Method Mechanical Ventilator Weight: 232 lb 5.875 oz Body Mass Index (BMI) 33.5 Intake and Output for Last 24 Hours 03/15/20 03/16/20 03/17/20 23:59 23:59 23:59 Intake Total 5266.75 / 5266.75 3219.31 / 3301.41 688.49 / 688.49 Output Total 425 / 425 160 / 160 130 / 130 Balance 4841.75 / 4841.75 3059.31 / 3141.41 558.49 / 558.49 General: Intubated and sedated but arousable HEENT: Atraumatic, PERRLA, normocephalic Oral: Moist Mucosa Neck: Supple, No JVD Lungs: Normal air movement, Diminished, Rhonchi, Wheezes Cardiovascular: Regular Rhythm, Normal S1, Normal S2, No murmurs, Tachycardic Abdomen: Soft, Non Tender, Non-Distended, No Hepato-splenomegaly Extremities: No edema, Capillary Refill Less than 3 Seconds Skin: No rashes, No breakdown Neurological: Intubated and sedated Psych/Mental Status: Intubated and sedated Microbiology Past 72 Hours 03/16/20 15:12 Sputum, Induced/Lukens Gram Stain - Final 03/15/20 08:55 Sputum, Expectorated/Coughed Gram Stain - Final 03/15/20 08:55 Sputum, Expectorated/Coughed Respiratory Culture - Final Mixed normal respiratory ignacio. No Streptococcus pneumoniae, beta-hemolytic Streptococcus or Staphylococcus aureus isolated. 03/16/20 09:15 Sputum, Expectorated/Coughed Gram Stain - Final 03/14/20 09:25 Interface Orders Urine Culture - Final GPC Poss Enterococcus sp Gram negative briana 03/14/20 08:25 Blood Culture (Wb) - Right Forearm Blood Culture - Preliminary No growth in 48 hours. 03/14/20 07:50 Blood Culture (Wb) - Right Forearm Blood Culture - Preliminary No growth in 48 hours. 03/15/20 15:40 Stool C. difficile DNA Amplification - Final 03/14/20 09:30 Urine, Clean Catch Legionella Antigen - Final 03/14/20 09:30 Urine, Clean Catch Streptococcus pneumoniae Antigen (M - Final Laboratory Results 03/16/20 04:15: Total Creatine Kinase 29 L, Triglycerides 65 03/16/20 12:38: Specimen Type ART, Sample Site R Brach, pH 7.14 L*, Bicarbonate Actual 25.6, Total CO2 28, Base Excess -3 L, O2 Saturation 100 H, O2 % 100, ABG pCO2 74.6 H*, ABG pO2 238 H, Arturo Test Positive, O2 Delivery Device NRB 03/16/20 14:05: Specimen Type ART, Sample Site L Radial, pH 7.17 L*, Bicarbonate Actual 24.9, Total CO2 27, Base Excess -4 L, O2 Saturation 86 L, O2 % 50, ABG pCO2 68.9 H*, ABG pO2 66 L, Arturo Test Positive, Respiration Rate 16, O2 Delivery Device BiPAP, Vent Mode BiLevel, Tidal Volume 475, POC PEEP 5 03/16/20 20:33: Specimen Type ART, Sample Site R Radial, pH 7.25 L, Bicarbonate Actual 22.0, Total CO2 24, Base Excess -5 L, O2 Saturation 96, O2 % 50, ABG pCO2 49.6 H, ABG pO2 94, Arturo Test Positive, Respiration Rate 12, O2 Delivery Device Adult Vent, Vent Mode AC, Tidal Volume 450, POC PEEP 5 03/17/20 05:05: WBC 10.3, RBC 2.98 L, Hgb 10.8 L, Hct 34.8 L, MCV 116.8 H, MCH 36.2 H, MCHC 31.0 L, RDW Std Deviation 80.5 H, RDW Coeff of Reggie 18.8 H, Plt Count 227, MPV 10.9, Immature Gran % (Auto) 0.800, Neut % (Auto) 85.5 H, Lymph % (Auto) 4.5 L, [place] % (Auto) 8.7, Eos % (Auto) 0.2, Baso % (Auto) 0.3, Absolute Neuts (auto) 8.8 H, Absolute Lymphs (auto) 0.46 L, Nucleated RBC % 0.4, Differential Comment SCANNED, Platelet Estimate ADEQUATE, Anisocytosis 2+, Macrocytosis 2+ 03/17/20 05:05: Sodium 138, Potassium 4.8, Chloride 107, Carbon Dioxide 22.0, Anion Gap 9, BUN 84 H, Creatinine 3.49 H, Estim Creat Clear Calc 17.69, Est GFR (MDRD) Af Amer 22 L, Est GFR (MDRD) Non-Af 18 L, BUN/Creatinine Ratio 24.1 H, Glucose 111 H, Calcium 7.8 L, Total Bilirubin 0.40, AST 62 H, ALT 26, Alkaline Phosphatase 74, Total Protein 7.3, Albumin 1.6 L, Globulin 5.7 H, Albumin/Globulin Ratio 0.3 L Current Medications Acetaminophen (Acetaminophen 650 Mg/20 Ml Udc) 650 mg GT Q6H PRN PRN PRN Reason: Pain Score 1-10/Temp > 100.7 F Albuterol Sulfate (Albuterol 2.5 Mg/3 Ml Vial.Neb.) 2.5 mg INHALATION Q2H PRN PRN PRN Reason: DYSPNEA Apixaban (Apixaban 2.5 Mg Tablet) 2.5 mg GT BID [facility] Last Admin: 03/17/20 10:44 Dose: 2.5 mg Documented by: Atorvastatin Calcium (Atorvastatin Calcium 20 Mg Tablet) 20 mg GT QHS [facility] Chlorhexidine Gluconate (Chlorhexidine 15 Ml) 15 ml PO BID [facility] Last Admin: 03/17/20 10:43 Dose: 15 ml Documented by: Folic Acid (Folic Acid 1 Mg Tablet) 1 mg GT DAILY@0800 [facility] Stop: 03/18/20 08:01 Last Admin: 03/17/20 10:50 Dose: 1 mg Documented by: Gabapentin (Gabapentin 600 Mg Tablet) 600 mg GT QHS [facility] Gabapentin (Gabapentin 300 Mg Capsule) 300 mg GT DAILY [facility] Last Admin: 03/17/20 10:44 Dose: 300 mg Documented by: Ceftriaxone Sodium 2 gm/ (Sodium Chloride) 50 mls @ 100 mls/hr IV Q24H [facility] Last Infusion: 03/16/20 13:13 Dose: Infused Documented by: Azithromycin 500 mg/ Dextrose 255 mls @ 250 mls/hr IV Q24 [facility] Stop: 03/20/20 10:01 Last Infusion: 03/16/20 12:21 Dose: Infused Documented by: Sodium Chloride () 250 mls @ 15 mls/hr IV .[id number] PRN PRN Reason: Saline Flush Last Admin: 03/17/20 10:50 Dose: 15 mls/hr Documented by: Sodium Chloride () 250 mls @ 15 mls/hr IV .[id number] PRN PRN Reason: Additional IVPB Infusion Norepinephrine Bitartrate 8 mg (/ Sodium Chloride) 250 mls @ 9.375 mls/hr CONT INF .[id number] [facility]; Protocol Last Admin: 03/17/20 10:41 Dose: 15 mcg/min, 28.1 mls/hr Documented by: Propofol (Diprivan) 1,000 mg in 100 mls @ 6.324 mls/hr CONT INF .Q12H [facility]; Protocol Last Titration: 03/17/20 09:00 Dose: 15 mcg/kg/min, 9.5 mls/hr Documented by: Fentanyl Citrate 1,000 mcg/ (Sodium Chloride) 100 mls @ 5 mls/hr CONT INF .Q20H [facility]; Protocol Last Titration: 03/17/20 09:00 Dose: 50 mcg/hr, 5 mls/hr Documented by: Amiodarone HCl 360 mg/ (Dextrose) 200 mls @ 16.667 mls/hr CONT INF .Q12H [facility] Stop: 03/17/20 18:29 Last Infusion: 03/17/20 09:00 Dose: 0.5 mg/min, 16.7 mls/hr Documented by: Pantoprazole Sodium 40 mg/ (Sodium Chloride) 110 mls @ 330 mls/hr IV Q12 [facility] Lorazepam (Lorazepam 2 Mg/Ml Syringe) 2 mg IV Q2H PRN PRN; Protocol PRN Reason: CIWA score > 8 but <15 Lorazepam (Lorazepam 2 Mg/Ml Syringe) 2 mg IV UD PRN; Protocol PRN Reason: CIWA score >/=15. Lorazepam (Lorazepam 1 Mg Tablet) 2 mg GT Q2H PRN PRN; Protocol PRN Reason: CIWA score > 8 but <15 Lorazepam (Lorazepam 1 Mg Tablet) 2 mg GT UD PRN; Protocol PRN Reason: CIWA score >/=15. Magnesium Chloride (Magnesium Chloride 64 Mg Delay Rel.Tablet) 128 mg PO DAILY@0800 [facility] Last Admin: 03/17/20 10:50 Dose: 128 mg Documented by: Ondansetron HCl (Ondansetron 4 Mg/2 Ml Vial) 4 mg IV Q8H PRN PRN PRN Reason: NAUSEA/VOMITING Sodium Chloride (0.9% Saline Lock 10 Ml Syringe) 10 - 40 ml IV UD PRN PRN Reason: SALINE FLUSH Last Admin: 03/16/20 04:45 Dose: 10 ml Documented by: Thiamine HCl (Thiamine Hydrochloride 100 Mg Tablet) 100 mg GT BIDCM [facility] Stop: 03/19/20 08:01 Last Admin: 03/17/20 10:44 Dose: 100 mg Documented by: STROKE Vital Signs/Narrative: Vital Signs Temp Pulse Resp BP Pulse Ox 03/17/20 10:00 129 H 15 108/69 96 03/17/20 09:00 117 H 16 126/69 H 95 03/17/20 08:30 120 H 19 H 119/67 95 03/17/20 08:00 98.3 F 116 H 12 115/69 96 03/17/20 07:57 106 H 13 96 03/17/20 07:30 108 H 14 116/67 95 03/17/20 07:15 110 H 102/69 03/17/20 07:00 98.4 F 108 H 13 102/75 97 Medical Necessity - Tobacco Use Smoking Status: Current every day smoker Assessment/Plan All Active Problems (Last Reviewed 03/10/20 @ 13:[address] Micky Mauro MD) Sepsis due to pneumonia (Acute) Acute kidney injury (Acute) Hypoxemia (Acute) Elevated troponin (Acute) Elevated INR (Resolved) Skin tear of left elbow without complication (Resolved) 1. 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 History of paroxysmal A. fib/A-flutter/HTN/HLD/indeterminate troponin/nonischemic cardiomyopathy -His troponin was slightly elevated to 0.197 his BNP on admission was 2666, the troponin was likely secondary to his tachycardia as well as sepsis -When able we will need to restart his Lasix -Was started on amiodarone yesterday for his elevated heart rate. -In 2019, EF was 55% with pulmonary artery systolic pressure 46 mmHg 3. History of DVT/PE -Stable -Continue with Eliquis 4. Nonhealing surgical wounds of his lower back -We will consult wound care nurse for evaluation -These are secondary to surgical debridement for an abscess following lumbar spine surgery 5. Chronic alcoholic cirrhosis/anemia of chronic disease -Hold his Lasix and his lactulose secondary to his septic shock -His anemia is at baseline likely related to his cirrhosis as well as his chronic kidney disease DVT: Eliquis Inpatient E&M: 44852 Subs Hosp L2
--- NOTE | 2020-03-17 11:43 | NT.THERAPY_ITS ---
Nutrition Therapy Report - History Nutrition Services has been consulted to:: Manage enteral nutrition Current diet / nutrition support order:: NPO - Anthropometric Measurements Height:: 5 ft 8 in Weight:: 105.4 kg Body Mass Index (BMI):: 35.3 - Relevant Labs Relevant Labs:: WBC 11.6 K/mm3 (4.4-11.0) H 03/16/20 04:15 RBC 2.98 M/mm3 (4.6-6.2) L 03/17/20 05:05 Hgb 10.8 g/dL (13.0-16.5) L 03/17/20 05:05 Hct 34.8 % (40-54) L 03/17/20 05:05 MCV 116.8 fL (80-94) H 03/17/20 05:05 MCH 36.2 pg (27.0-32.0) H 03/17/20 05:05 MCHC 31.0 g/dL (32-36) L 03/17/20 05:05 RDW Std Deviation 80.5 fl (35.1-43.9) H 03/17/20 05:05 RDW Coeff of Reggie 18.8 % (11.6-14.6) H 03/17/20 05:05 Neut % (Auto) 85.5 % (47-70) H 03/17/20 05:05 Lymph % (Auto) 4.5 % (19-41) L 03/17/20 05:05 Absolute Neuts (auto) 8.8 X10^3/uL (2.0-7.7) H 03/17/20 05:05 Absolute Lymphs (auto) 0.46 X10^3/uL (0.83-4.51) L 03/17/20 05:05 PT 21.5 SECONDS (11.7-14.9) H 03/14/20 08:25 APTT 39.1 Seconds (24.1-36.2) H 03/14/20 08:25 BUN 84 mg/dL (7-18) H 03/17/20 05:05 Creatinine 3.49 mg/dL (0.70-1.30) H 03/17/20 05:05 Est GFR (MDRD) Af Amer 22 mL/min (>60) L 03/17/20 05:05 Est GFR (MDRD) Non-Af 18 mL/min (>60) L 03/17/20 05:05 BUN/Creatinine Ratio 24.1 RATIO (10-20) H 03/17/20 05:05 Glucose 111 mg/dL (74-106) H 03/17/20 05:05 Calcium 7.8 mg/dL (8.5-10.1) L 03/17/20 05:05 Magnesium 2.7 mg/dL (1.6-2.6) H 03/14/20 08:25 AST 62 U/L (15-37) H 03/17/20 05:05 Total Creatine Kinase 29 U/L (39-308) L 03/16/20 04:15 Troponin I 0.197 ng/mL (<0.045) H 03/14/20 08:25 B-Natriuretic Peptide 2666.1 pg/mL (0-100) H 03/14/20 08:25 Total Protein 8.6 g/dL (6.4-8.2) H 03/14/20 08:25 Albumin 1.6 g/dL (3.2-5.0) L 03/17/20 05:05 Globulin 5.7 g/dL (2.2-4.2) H 03/17/20 05:05 Albumin/Globulin Ratio 0.3 RATIO (0.9-2.4) L 03/17/20 05:05 - Assessment Food / Nutrition-Related History:: Discussed in ICU rounds. Intubated yesterday d/t resp. failure. Okay to start enteral nutrition support via OGT. No new wt. - Nutrition Diagnosis Problem / Etiology / Signs & Symptoms (PES):: Pt w/ inadequate oral intake related to resp. failure as evidenced by NPO status. Evidence of Malnutrition Exists:: No - Nutrition Intervention Nutrition Prescription:: Re-estimated nutritional needs using ASPEN guidelines for critically ill, morbidly obese patients: 7526-9873 calories (22-25 darwin javi/kg IBW (70kg)) and 140-175 g protein (2.0-2.5 g protein/kg IBW). - Food / Nutrient Delivery Interventions Summary of nutrition intervention:: Will order enteral nutrition support and Jackson BID via OGT. Nutrition support ordered as / adjusted to:: Vital HP at 70mL/hour w/ 75mL H2O flush every 4 hours to provide 1680 calories, 146 g protein, and 1854mL total fluid per day. Tube feeds to be administed via gravity bag. Total formula per day: 1680mL. Recommend start at 120mL for first 4 hours (approx 10 drops/minute, 3 drops per 15 seconds); for next 4 hours, 180mL (approx 15 drops/minute, 4 drops per 15 seconds); for next 4 hours 240mL (approx 20 drops/minute, 5 drops per 15 seconds); goal rate is 280mL per 4 hours (approx 23 drops/minute, 6 drops per 15 seconds). Will add Jackson BID via OGT d/t wounds. - MNT Monitoring Further MNT monitoring and evaluation required?: Yes MNT Follow-up in:: 1-2 days
[2020-03-17] MEDS: Vital High Protein 1,000 ML 70 ML GT ×2 (13:22→20:54)
[2020-03-17] MEDS: Propofol 10MG/Ml 1,000 MG/100 ML Bottle 9.5 MG CONT INF ×2 (13:35→23:19)
[2020-03-17] MEDS: Juven (unflavored) Packet 1 PACKET GT (18:13)
[2020-03-17 18:21] LABS: Bedside Glucose 93 mg/dL (70-110)
--- NOTE | 2020-03-17 18:25 | NURSING ---
education re chronic illness deferred till acute illness resolving
[2020-03-17] MEDS: Atorvastatin Calcium 20 MG Tablet GT (22:29)
[2020-03-17] MEDS: Gabapentin 600 MG Tablet GT (22:34)
[2020-03-18] VITALS (52 sets, daily range): BP systolic 82–113; BP diastolic 52–72; PULSE 90–128; RESP 12–28; TEMP 36.7–37.7; O2SAT 87–100
[2020-03-18] MEDS: Vital High Protein 1,000 ML 70 ML GT ×5 (00:47→19:51)
[2020-03-18 00:51] LABS: Bedside Glucose 125 mg/dL (70-110)
[2020-03-18] MEDS: Amiodarone 360 MG in Dextrose 5% Viaflo Bag 192.8 ML 16.7 MG CONT INF ×2 (01:03→12:35)
[2020-03-18] MEDS: 0.9% Saline Lock 10 ML Syringe IV ×2 (01:05→05:02)
[2020-03-18 05:13] LABS: Absolute Lymphocyte Count 0.41 X10^3/uL (0.83-4.51); Basophil# 0.01 X10^3/uL; Basophil% 0.1 % (0-1); Eosinophils% 1.1 % (0-5); Hematocrit 29.2 % (40-54); Hemoglobin 9.4 g/dL (13.0-16.5); Lymphocyte # 0.41 X10^3/ul (4.0); Lymphocyte % 4.5 % (19-41); Mean Corp Hgb Conc 32.2 g/dL (32-36); Mean Corpuscular Volume 111.9 fL (80-94); Mean Platelet Vol. 10.8 fl (6.2-12.0); Monocyte# 0.54 X10^3/uL; Monocyte% 5.9 % (0-10); NRBC Flagged by Analyzer 0.7 % (0-5); Neutrophil # 8.04 X10^3/uL (2.7-7.7); Neutrophil % 87.6 % (47-70); POSITIVE DIFFERENTIAL YES; POSITIVE MORPHOLOGY YES; Platelet Count 191 K/mm3 (150-450); RBC Distribution Width CV 18.2 % (11.6-14.6); RBC Distribution Width SD 74.4 fl (35.1-43.9); Red Blood Count 2.61 M/mm3 (4.6-6.2); White Blood Count 9.2 K/mm3 (4.4-11.0)
[2020-03-18 05:24] LABS: Differential Indicated SCAN CRITERIA MET
[2020-03-18 05:29] LABS: Anisocytosis 2+; Differential Comment SCANNED; Hypochromasia RARE; Macrocytosis 2+; Platelet Estimate ADEQUATE (ADEQ)
[2020-03-18 05:35] LABS: Anion Gap 7 (5-15); BUN 87 mg/dL (7-18); BUN/Creat Ratio 27.6 RATIO (10-20); Calcium,Total 7.6 mg/dL (8.5-10.1); Chloride 107 mmol/L (98-107); Creatinine, Serum 3.15 mg/dL (0.70-1.30); EST Glomerular Filtration Rate 21 mL/min (>60); Est Glom Filt Rate - Afr Amer 25 mL/min (>60); Glucose 116 mg/dL (74-106); Magnesium 2.5 mg/dL (1.6-2.6); Phosphorus 3.5 mg/dL (2.5-4.9); Potassium 3.4 mmol/L (3.5-5.1); Sodium Level 138 mmol/L (136-145)
--- NOTE | 2020-03-18 07:11 | PN_ITS ---
Subjective: Patient did okay overnight. Levophed requirements have improved. Patient did qualify for spontaneous breathing trial this morning, but unfortunately did develop significant tachycardia and tachypnea after approximately 45 minutes. Patient was placed back on sedation, but did not report any pain. Patient has tolerated tube feeds. General: No apparent distress, - - Intubated and sedated. Good vent synchrony. HEENT: Atraumatic, PERRLA, EOMI, Normocephalic, - - Slight scleral injection without icterus Oral: Moist Mucosa, No Gingival or Mucosal Lesions/ Ulcerations Neck: Supple, No JVD, No Nodes, Trachea Midline Lungs: Diminished, Rhonchi - Left base Cardiovascular: Normal S1, Normal S2, Irregular Rate, No rub noted, No Gallop, Tachycardic Abdomen: Bowel Sounds Present, Soft, Non Tender, Non-Distended, Obese Extremities: No clubbing, No cyanosis, Edema Skin: - - No change compared to previous Musculoskeletal: No Tenderness to Palpation of Joints or Extremities Lymphatic: No Cervical, Supraclavicular, or Inguinal Adenopathy Neurological: Cranial nerves II-XII grossly intact, Neuro grossly intact Psych/Mental Status: Flat Affect, Impulsive, Restless Vital Signs Temp Pulse Resp BP Pulse Ox 37.7 C H 128 H 28 H 113/72 97 03/18/20 06:00 03/18/20 06:00 03/18/20 06:00 03/18/20 06:00 03/18/20 06:00 Oxygen Flow Rate (L/min) 6 Oxygen Delivery Method Mechanical Ventilator Weight: 107 kg Body Mass Index (BMI) 35.3 Intake and Output for Last 24 Hours 03/16/20 03/17/20 03/18/20 23:59 23:59 23:59 Intake Total 3219.31 / 3301.41 2132.52 / 2396.44 511.20 / 511.20 Output Total 160 / 160 775 / 805 355 / 355 Balance 3059.31 / 3141.41 1357.52 / 1591.44 156.20 / 156.20 Labs (Last 48 Hours) 03/16/20 03/16/20 03/16/20 04:15 12:38 14:05 WBC RBC Hgb Hct MCV MCH MCHC RDW Std Deviation RDW Coeff of Reggie Plt Count MPV Immature Gran % (Auto) Neut % (Auto) Lymph % (Auto) [place] % (Auto) Eos % (Auto) Baso % (Auto) Absolute Neuts (auto) Absolute Lymphs (auto) Nucleated RBC % Differential Comment Platelet Estimate Hypochromasia Anisocytosis Macrocytosis Specimen Type ART ART Sample Site R Brach L Radial pH 7.14 L* 7.17 L* Bicarbonate Actual 25.6 24.9 Total CO2 28 27 Base Excess -3 L -4 L O2 Saturation 100 H 86 L O2 % 100 50 ABG pCO2 74.6 H* 68.9 H* ABG pO2 238 H 66 L Arturo Test Positive Positive Respiration Rate 16 O2 Delivery Device NRB BiPAP Vent Mode BiLevel Tidal Volume 475 POC PEEP 5 Sodium Potassium Chloride Carbon Dioxide Anion Gap BUN Creatinine Estim Creat Clear Calc Est GFR (MDRD) Af Amer Est GFR (MDRD) Non-Af BUN/Creatinine Ratio Glucose Calcium Phosphorus Magnesium Total Bilirubin AST ALT Alkaline Phosphatase Total Creatine Kinase 29 L Total Protein Albumin Globulin Albumin/Globulin Ratio Triglycerides 65 POC Glucose 03/16/20 03/17/20 03/17/20 20:33 05:05 05:05 WBC 10.3 RBC 2.98 L Hgb 10.8 L Hct 34.8 L MCV 116.8 H MCH 36.2 H MCHC 31.0 L RDW Std Deviation 80.5 H RDW Coeff of Reggie 18.8 H Plt Count 227 MPV 10.9 Immature Gran % (Auto) 0.800 Neut % (Auto) 85.5 H Lymph % (Auto) 4.5 L [place] % (Auto) 8.7 Eos % (Auto) 0.2 Baso % (Auto) 0.3 Absolute Neuts (auto) 8.8 H Absolute Lymphs (auto) 0.46 L Nucleated RBC % 0.4 Differential Comment SCANNED Platelet Estimate ADEQUATE Hypochromasia Anisocytosis 2+ Macrocytosis 2+ Specimen Type ART Sample Site R Radial pH 7.25 L Bicarbonate Actual 22.0 Total CO2 24 Base Excess -5 L O2 Saturation 96 O2 % 50 ABG pCO2 49.6 H ABG pO2 94 Arturo Test Positive Respiration Rate 12 O2 Delivery Device Adult Vent Vent Mode AC Tidal Volume 450 POC PEEP 5 Sodium 138 Potassium 4.8 Chloride 107 Carbon Dioxide 22.0 Anion Gap 9 BUN 84 H Creatinine 3.49 H Estim Creat Clear Calc 17.69 Est GFR (MDRD) Af Amer 22 L Est GFR (MDRD) Non-Af 18 L BUN/Creatinine Ratio 24.1 H Glucose 111 H Calcium 7.8 L Phosphorus Magnesium Total Bilirubin 0.40 AST 62 H ALT 26 Alkaline Phosphatase 74 Total Creatine Kinase Total Protein 7.3 Albumin 1.6 L Globulin 5.7 H Albumin/Globulin Ratio 0.3 L Triglycerides POC Glucose 03/17/20 03/18/20 03/18/20 18:12 00:05 05:00 WBC 9.2 RBC 2.61 L Hgb 9.4 L Hct 29.2 L MCV 111.9 H MCH 36.0 H MCHC 32.2 RDW Std Deviation 74.4 H RDW Coeff of Reggie 18.2 H Plt Count 191 MPV 10.8 Immature Gran % (Auto) 0.800 Neut % (Auto) 87.6 H Lymph % (Auto) 4.5 L [place] % (Auto) 5.9 Eos % (Auto) 1.1 Baso % (Auto) 0.1 Absolute Neuts (auto) 8.0 H Absolute Lymphs (auto) 0.41 L Nucleated RBC % 0.7 Differential Comment SCANNED Platelet Estimate ADEQUATE Hypochromasia RARE Anisocytosis 2+ Macrocytosis 2+ Specimen Type Sample Site pH Bicarbonate Actual Total CO2 Base Excess O2 Saturation O2 % ABG pCO2 ABG pO2 Arturo Test Respiration Rate O2 Delivery Device Vent Mode Tidal Volume POC PEEP Sodium Potassium Chloride Carbon Dioxide Anion Gap BUN Creatinine Estim Creat Clear Calc Est GFR (MDRD) Af Amer Est GFR (MDRD) Non-Af BUN/Creatinine Ratio Glucose Calcium Phosphorus Magnesium Total Bilirubin AST ALT Alkaline Phosphatase Total Creatine Kinase Total Protein Albumin Globulin Albumin/Globulin Ratio Triglycerides POC Glucose 93 125 H 03/18/20 05:00 WBC RBC Hgb Hct MCV MCH MCHC RDW Std Deviation RDW Coeff of Reggie Plt Count MPV Immature Gran % (Auto) Neut % (Auto) Lymph % (Auto) [place] % (Auto) Eos % (Auto) Baso % (Auto) Absolute Neuts (auto) Absolute Lymphs (auto) Nucleated RBC % Differential Comment Platelet Estimate Hypochromasia Anisocytosis Macrocytosis Specimen Type Sample Site pH Bicarbonate Actual Total CO2 Base Excess O2 Saturation O2 % ABG pCO2 ABG pO2 Arturo Test Respiration Rate O2 Delivery Device Vent Mode Tidal Volume POC PEEP Sodium 138 Potassium 3.4 L Chloride 107 Carbon Dioxide 24.0 Anion Gap 7 BUN 87 H Creatinine 3.15 H Estim Creat Clear Calc 19.60 Est GFR (MDRD) Af Amer 25 L Est GFR (MDRD) Non-Af 21 L BUN/Creatinine Ratio 27.6 H Glucose 116 H Calcium 7.6 L Phosphorus 3.5 Magnesium 2.5 Total Bilirubin AST ALT Alkaline Phosphatase Total Creatine Kinase Total Protein Albumin Globulin Albumin/Globulin Ratio Triglycerides POC Glucose Microbiology 03/16/20 15:12 Sputum, Induced/Lukens Gram Stain - Final 03/16/20 15:12 Sputum, Induced/Lukens Respiratory Culture - Preliminary Culture exhibits no growth. 03/16/20 09:15 Sputum, Expectorated/Coughed Gram Stain - Final 03/16/20 09:15 Sputum, Expectorated/Coughed Respiratory Culture - Preliminary Staphylococcus aureus 03/15/20 08:55 Sputum, Expectorated/Coughed Gram Stain - Final 03/15/20 08:55 Sputum, Expectorated/Coughed Respiratory Culture - Final Mixed normal respiratory ignacio. No Streptococcus pneumoniae, beta-hemolytic Streptococcus or Staphylococcus aureus isolated. 03/14/20 09:25 Interface Orders Urine Culture - Final GPC Poss Enterococcus sp Gram negative briana 03/14/20 08:25 Blood Culture (Wb) - Right Forearm Blood Culture - Preliminary No growth in 48 hours. 03/14/20 07:50 Blood Culture (Wb) - Right Forearm Blood Culture - Preliminary No growth in 48 hours. Medical Necessity - Tobacco Use Smoking Status: Current every day smoker Assessment/Plan All Active Problems (Last Reviewed 03/10/20 @ 13:[address] Micky Mauro MD) Sepsis due to pneumonia (Acute) Acute kidney injury (Acute) Hypoxemia (Acute) Elevated troponin (Acute) Elevated INR (Resolved) Skin tear of left elbow without complication (Resolved) RECOMMENDATIONS: 1. Consider transition to p.o. amiodarone. Possibly obtain cardiology input 2. Wean Levophed as tolerated 3. Wean oxygen as tolerated 4. Continue to support blood pressure and monitor renal function 5. Continue antibiotics pending culture data 6. Spontaneous breathing and awakening trials per protocol IMPRESSIONS: 1. Septic shock secondary to left lower lobe pneumonia Patient does have a significant left lower lobe infiltrate noted on chest x-ray. Patient has had pulmonary function tests suggesting restriction in the past. Patient has multiple cultures pending including an expectorated and a tracheal aspirate. Patient would be at increased risk for bacteremia given his history of splenectomy. Multiple cultures have been positive, but patient appears to be improving on current regimen. Continue current antibiotics pending culture data. 2. Acute hypoxic respiratory insufficiency secondary to community-acquired left lower lobe pneumonia Patient with hypercarbic respiratory failure developing shortly after arrival to the intensive care unit. Unclear if this is related to worsening renal function, severe sepsis, lower lobe pneumonia or medications. Patient appears to have responded to intubation appropriately. Continue with spontaneous breathing and awakening trials per protocol. 3. Acute kidney injury on CKD stage IV Patient's baseline appears to be about 1.8 and patient has been around 3 throughout the hospitalization. Patient would be at risk for hepatorenal syndrome given history of drinking. Prerenal etiology would also be a consideration. Renal function is improving today 4. History of A. fib/flutter with RVR/cardiomyopathy Patient is followed by Dr. Mauro as an outpatient. Clinical suspicion for a need for amiodarone versus digoxin to control current symptomatology. Consider cardiology consultation as initiation of pressors and congestive heart failure will complicate overall condition. Patient does appear to be improved on amiodarone. This can likely be transition to p.o. from my perspective 5. History of DVT/PE on Eliquis Patient is on Eliquis at baseline. Patient does appear to have slightly distended abdomen and may have an element of ascites. We will hold off on a paracentesis for now, but this may need to be evaluated in the future. 6. Delirium with history of alcohol abuse Patient with acute metabolic encephalopathy from possible alcohol withdrawal. Tremor was noted. Patient currently on systemic sedation, so CIWA protocol is not indicated 7. Hypertension/hyperlipidemia/history of non-Hodgkin's lymphoma status post splenectomy Complicates care, management, recovery and prognosis. Discontinue baseline antihypertensive medications. TIME: 40 minutes critical care time spent addressing patient's septic shock, hypoxic respiratory insufficiency, acute kidney injury, A. fib with RVR, possible alcohol withdrawal, review of all data and collaboration with care team (6 AM to 7 AM) [phone]: [id number] Critical care first hour
[2020-03-18 08:11] LABS: Bedside Glucose 101 mg/dL (70-110)
[2020-03-18] MEDS: Propofol 10MG/Ml 1,000 MG/100 ML Bottle 9.6 MG CONT INF ×2 (09:44→20:43)
--- NOTE | 2020-03-18 10:17 | PN_ITS ---
Patient Problems: Active and Suspected Problems (Last Reviewed 03/10/20 @ 13:[address] Micky Mauro MD) Sepsis due to pneumonia (Acute) Acute kidney injury (Acute) Hypoxemia (Acute) Elevated troponin (Acute) Subjective: Intubated and sedated, no issues overnight, tolerated his spontaneous breathing trial today for about an hour before he developed tachycardia. Vitals/I&O's: Vital Signs Temp Pulse Resp BP Pulse Ox 99.9 F H 108 H 17 91/61 95 03/18/20 08:00 03/18/20 10:00 03/18/20 10:00 03/18/20 10:00 03/18/20 09:40 Oxygen Flow Rate (L/min) 6 Oxygen Delivery Method Mechanical Ventilator Weight: 235 lb 14.314 oz Body Mass Index (BMI) 35.3 Intake and Output for Last 24 Hours 03/16/20 03/17/20 03/18/20 23:59 23:59 23:59 Intake Total 3219.31 / 3301.41 2132.52 / 2396.44 815.91 / 815.91 Output Total 160 / 160 775 / 805 355 / 355 Balance 3059.31 / 3141.41 1357.52 / 1591.44 460.91 / 460.91 General: Intubated and sedated but arousable HEENT: Atraumatic, PERRLA, normocephalic Oral: Moist Mucosa Neck: Supple, No JVD Lungs: Normal air movement, Diminished, Rhonchi, Wheezes Cardiovascular: Regular Rhythm, Normal S1, Normal S2, No murmurs, Tachycardic Abdomen: Soft, Non Tender, Non-Distended, No Hepato-splenomegaly Extremities: No edema, Capillary Refill Less than 3 Seconds Skin: No rashes, No breakdown Neurological: Intubated and sedated Psych/Mental Status: Intubated and sedated Microbiology Past 72 Hours 03/16/20 09:15 Sputum, Expectorated/Coughed Gram Stain - Final 03/16/20 09:15 Sputum, Expectorated/Coughed Respiratory Culture - Preliminary Staphylococcus aureus 03/16/20 15:12 Sputum, Induced/Lukens Gram Stain - Final 03/16/20 15:12 Sputum, Induced/Lukens Respiratory Culture - Preliminary Culture exhibits no growth. 03/15/20 08:55 Sputum, Expectorated/Coughed Gram Stain - Final 03/15/20 08:55 Sputum, Expectorated/Coughed Respiratory Culture - Final Mixed normal respiratory ignacio. No Streptococcus pneumoniae, beta-hemolytic Streptococcus or Staphylococcus aureus isolated. 03/14/20 09:25 Interface Orders Urine Culture - Final GPC Poss Enterococcus sp Gram negative briana 03/14/20 08:25 Blood Culture (Wb) - Right Forearm Blood Culture - Preliminary No growth in 48 hours. 03/14/20 07:50 Blood Culture (Wb) - Right Forearm Blood Culture - Preliminary No growth in 48 hours. 03/15/20 15:40 Stool C. difficile DNA Amplification - Final Laboratory Results 03/17/20 18:12: POC Glucose 93 03/18/20 00:05: POC Glucose 125 H 03/18/20 05:00: WBC 9.2, RBC 2.61 L, Hgb 9.4 L, Hct 29.2 L, MCV 111.9 H, MCH 36.0 H, MCHC 32.2, RDW Std Deviation 74.4 H, RDW Coeff of Reggie 18.2 H, Plt Count 191, MPV 10.8, Immature Gran % (Auto) 0.800, Neut % (Auto) 87.6 H, Lymph % (Auto) 4.5 L, [place] % (Auto) 5.9, Eos % (Auto) 1.1, Baso % (Auto) 0.1, Absolute Neuts (auto) 8.0 H, Absolute Lymphs (auto) 0.41 L, Nucleated RBC % 0.7, Differential Comment SCANNED, Platelet Estimate ADEQUATE, Hypochromasia RARE, Anisocytosis 2+, Macrocytosis 2+ 03/18/20 05:00: Sodium 138, Potassium 3.4 L, Chloride 107, Carbon Dioxide 24.0, Anion Gap 7, BUN 87 H, Creatinine 3.15 H, Estim Creat Clear Calc 19.60, Est GFR (MDRD) Af Amer 25 L, Est GFR (MDRD) Non-Af 21 L, BUN/Creatinine Ratio 27.6 H, Glucose 116 H, Calcium 7.6 L, Phosphorus 3.5, Magnesium 2.5 03/18/20 06:34: POC Glucose 101 Current Medications Acetaminophen (Acetaminophen 650 Mg/20 Ml Udc) 650 mg GT Q6H PRN PRN PRN Reason: Pain Score 1-10/Temp > 100.7 F Albuterol Sulfate (Albuterol 2.5 Mg/3 Ml Vial.Neb.) 2.5 mg INHALATION Q2H PRN PRN PRN Reason: DYSPNEA Apixaban (Apixaban 2.5 Mg Tablet) 2.5 mg GT BID [facility] Last Admin: 03/17/20 22:28 Dose: 2.5 mg Documented by: Atorvastatin Calcium (Atorvastatin Calcium 20 Mg Tablet) 20 mg GT QHS [facility] Last Admin: 03/17/20 22:29 Dose: 20 mg Documented by: Chlorhexidine Gluconate (Chlorhexidine 15 Ml) 15 ml PO BID [facility] Last Admin: 03/17/20 22:48 Dose: 15 ml Documented by: Gabapentin (Gabapentin 600 Mg Tablet) 600 mg GT QHS [facility] Last Admin: 03/17/20 22:34 Dose: 600 mg Documented by: Gabapentin (Gabapentin 300 Mg Capsule) 300 mg GT DAILY [facility] Last Admin: 03/17/20 10:44 Dose: 300 mg Documented by: Ceftriaxone Sodium 2 gm/ (Sodium Chloride) 50 mls @ 100 mls/hr IV Q24H [facility] Last Infusion: 03/17/20 13:34 Dose: Infused Documented by: Azithromycin 500 mg/ Dextrose 255 mls @ 250 mls/hr IV Q24 [facility] Stop: 03/20/20 10:01 Last Infusion: 03/17/20 12:28 Dose: Infused Documented by: Sodium Chloride () 250 mls @ 15 mls/hr IV .[id number] PRN PRN Reason: Saline Flush Last Infusion: 03/18/20 09:00 Dose: 15 mls/hr Documented by: Sodium Chloride () 250 mls @ 15 mls/hr IV .[id number] PRN PRN Reason: Additional IVPB Infusion Norepinephrine Bitartrate 8 mg (/ Sodium Chloride) 250 mls @ 9.375 mls/hr CONT INF .[id number] SOFIA; Protocol Last Titration: 03/18/20 10:00 Dose: 7 mcg/min, 13.1 mls/hr Documented by: Propofol (Diprivan) 1,000 mg in 100 mls @ 6.42 mls/hr CONT INF .Q12H [facility]; Protocol Last Titration: 03/18/20 10:00 Dose: 15 mcg/kg/min, 9.6 mls/hr Documented by: Fentanyl Citrate 1,000 mcg/ (Sodium Chloride) 100 mls @ 5 mls/hr CONT INF .Q20H [facility]; Protocol Last Titration: 03/18/20 10:00 Dose: 50 mcg/hr, 5 mls/hr Documented by: Pantoprazole Sodium 40 mg/ (Sodium Chloride) 110 mls @ 330 mls/hr IV Q12 [facility] Last Infusion: 03/17/20 22:51 Dose: Infused Documented by: Amiodarone HCl 360 mg/ (Dextrose) 200 mls @ 16.667 mls/hr CONT INF .Q12H [facility] Last Infusion: 03/18/20 10:00 Dose: 0.5 mg/min, 16.7 mls/hr Documented by: Enteral Nutritional Formula (Vital High Protein) 1,000 mls @ 70 mls/hr GT .[id number] [facility] Last Admin: 03/18/20 06:20 Dose: 70 mls/hr Documented by: Insulin Human Lispro (Insulin Lispro 100 Unit/Ml Insuln.Pen) 0 unit SC Q6 [facility]; Protocol Last Admin: 03/18/20 06:35 Dose: Not Given Documented by: L-Arginine/L-Glutamine/Calcium HMB (Jackson (Unflavored) Packet) 1 packet GT BIDCM [facility] Last Admin: 03/17/20 18:13 Dose: 1 packet Documented by: Lorazepam (Lorazepam 2 Mg/Ml Syringe) 2 mg IV Q2H PRN PRN; Protocol PRN Reason: CIWA score > 8 but <15 Lorazepam (Lorazepam 2 Mg/Ml Syringe) 2 mg IV UD PRN; Protocol PRN Reason: CIWA score >/=15. Lorazepam (Lorazepam 1 Mg Tablet) 2 mg GT Q2H PRN PRN; Protocol PRN Reason: CIWA score > 8 but <15 Lorazepam (Lorazepam 1 Mg Tablet) 2 mg GT UD PRN; Protocol PRN Reason: CIWA score >/=15. Magnesium Chloride (Magnesium Chloride 64 Mg Delay Rel.Tablet) 128 mg PO DAILY@0800 [facility] Last Admin: 03/17/20 10:50 Dose: 128 mg Documented by: Ondansetron HCl (Ondansetron 4 Mg/2 Ml Vial) 4 mg IV Q8H PRN PRN PRN Reason: NAUSEA/VOMITING Sodium Chloride (0.9% Saline Lock 10 Ml Syringe) 10 - 40 ml IV UD PRN PRN Reason: SALINE FLUSH Last Admin: 03/18/20 05:02 Dose: 10 ml Documented by: Thiamine HCl (Thiamine Hydrochloride 100 Mg Tablet) 100 mg GT BIDCM SOFIA Stop: 03/19/20 08:01 Last Admin: 03/17/20 18:13 Dose: 100 mg Documented by: STROKE Vital Signs/Narrative: Vital Signs Temp Pulse Resp BP Pulse Ox 03/18/20 10:00 108 H 17 91/61 03/18/20 09:40 100 16 95 03/18/20 09:00 105 H 19 H 100/54 L 03/18/20 08:00 99.9 F H 111 H 22 H 100/62 95 03/18/20 07:25 102 H 22 H 98 03/18/20 07:00 114 H 17 95/59 L 97 Medical Necessity - Tobacco Use Smoking Status: Current every day smoker Assessment/Plan All Active Problems (Last Reviewed 03/10/20 @ 13:[address] Micky Mauro MD) Sepsis due to pneumonia (Acute) Acute kidney injury (Acute) Hypoxemia (Acute) Elevated troponin (Acute) Elevated INR (Resolved) Skin tear of left elbow without complication (Resolved) 1. 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 History of paroxysmal A. fib/A-flutter/HTN/HLD/indeterminate troponin/nonischemic cardiomyopathy -His troponin was slightly elevated to 0.197 his BNP on admission was 2666, the troponin was likely secondary to his tachycardia as well as sepsis -When able we will need to restart his Lasix -Was started on amiodarone yesterday for his elevated heart rate. -In 2019, EF was 55% with pulmonary artery systolic pressure 46 mmHg 3. History of DVT/PE -Stable -Continue with Shailesh 4. Nonhealing surgical wounds of his lower back -We will consult wound care nurse for evaluation -These are secondary to surgical debridement for an abscess following lumbar spine surgery 5. Chronic alcoholic cirrhosis/anemia of chronic disease -Hold his Lasix and his lactulose secondary to his septic shock -His anemia is at baseline likely related to his cirrhosis as well as his chronic kidney disease DVT: Shailesh Inpatient E&M: [id number] Subs Hosp L2
--- NOTE | 2020-03-18 10:53 | PCM.CONS.R ---
Consultation - Renal 03/18/20 PCP/ Referring MD: Requesting physician: Javier Pat MD Primary care physician: Dr. Bernardo Lawson DO Reason for Consultation:: BRIANA on CKD - History of Present Illness History of Present Illness: The patient is a 74 year old M [with past history of CKD stage 3, T2DM, HTN, atrial fibrillation, cirrhosis and hyperlipidemia. The patient was admitted on 03/14/20 with septic shock and acute respiratory failure due to LLL pneumonia. The patient is currently on ventilator and is sedated, so history is obtained from chart review and discussion with other providers. Nephrology is asked to see the patient because of BRIANA on CKD. The patient is followed by my partner, Dr. Haines, for CKD. His SCr has been around 1.8 at baseline prior to this admission. He does have a remote history of tubular necrosis and did require dialysis for a short time. The patient presented with SCr of 2.9 on 03/14/20. His SCr was 3.49 yesterday, and is 3.15 today. His UOP is 775 mL in the last 24 hrs. The patient remains on pressor (NE drip at 7 mcg/min). There has been no exposure to IV contrast or NSAID. - Allergies Allergies: Allergies chlorthalidone Allergy (Verified 03/14/20 07:40) Unknown ramipril [From Altace] Allergy (Verified 03/14/20 07:40) Unknown sulfamethoxazole [From Bactrim] Allergy (Verified 03/14/20 07:40) Other trazodone Allergy (Verified 03/14/20 07:40) Unknown trimethoprim [From Bactrim] Allergy (Verified 03/14/20 07:40) Other prednisone Adverse Reaction (Verified 03/14/20 07:40) Swelling only in big doses - Current Medications Current Medications: Current Medications Acetaminophen (Acetaminophen 650 Mg/20 Ml Udc) 650 mg GT Q6H PRN PRN PRN Reason: Pain Score 1-10/Temp > 100.7 F Albuterol Sulfate (Albuterol 2.5 Mg/3 Ml Vial.Neb.) 2.5 mg INHALATION Q2H PRN PRN PRN Reason: DYSPNEA Apixaban (Apixaban 2.5 Mg Tablet) 2.5 mg GT BID [facility] Last Admin: 03/17/20 22:28 Dose: 2.5 mg Documented by: Atorvastatin Calcium (Atorvastatin Calcium 20 Mg Tablet) 20 mg GT QHS [facility] Last Admin: 03/17/20 22:29 Dose: 20 mg Documented by: Chlorhexidine Gluconate (Chlorhexidine 15 Ml) 15 ml PO BID [facility] Last Admin: 03/17/20 22:48 Dose: 15 ml Documented by: Gabapentin (Gabapentin 600 Mg Tablet) 600 mg GT QHS [facility] Last Admin: 03/17/20 22:34 Dose: 600 mg Documented by: Gabapentin (Gabapentin 300 Mg Capsule) 300 mg GT DAILY [facility] Last Admin: 03/17/20 10:44 Dose: 300 mg Documented by: Ceftriaxone Sodium 2 gm/ (Sodium Chloride) 50 mls @ 100 mls/hr IV Q24H [facility] Last Infusion: 03/17/20 13:34 Dose: Infused Documented by: Azithromycin 500 mg/ Dextrose 255 mls @ 250 mls/hr IV Q24 [facility] Stop: 03/20/20 10:01 Last Infusion: 03/17/20 12:28 Dose: Infused Documented by: Sodium Chloride () 250 mls @ 15 mls/hr IV .[id number] PRN PRN Reason: Saline Flush Last Infusion: 03/18/20 10:27 Dose: 0 mls/hr Documented by: Sodium Chloride () 250 mls @ 15 mls/hr IV .[id number] PRN PRN Reason: Additional IVPB Infusion Norepinephrine Bitartrate 8 mg (/ Sodium Chloride) 250 mls @ 9.375 mls/hr CONT INF .[id number] SOFIA; Protocol Last Titration: 03/18/20 10:00 Dose: 7 mcg/min, 13.1 mls/hr Documented by: Propofol (Diprivan) 1,000 mg in 100 mls @ 6.42 mls/hr CONT INF .Q12H [facility]; Protocol Last Titration: 03/18/20 10:00 Dose: 15 mcg/kg/min, 9.6 mls/hr Documented by: Fentanyl Citrate 1,000 mcg/ (Sodium Chloride) 100 mls @ 5 mls/hr CONT INF .Q20H [facility]; Protocol Last Titration: 03/18/20 10:00 Dose: 50 mcg/hr, 5 mls/hr Documented by: Pantoprazole Sodium 40 mg/ (Sodium Chloride) 110 mls @ 330 mls/hr IV Q12 [facility] Last Admin: 03/18/20 10:27 Dose: 330 mls/hr Documented by: Amiodarone HCl 360 mg/ (Dextrose) 200 mls @ 16.667 mls/hr CONT INF .Q12H [facility] Last Infusion: 03/18/20 10:00 Dose: 0.5 mg/min, 16.7 mls/hr Documented by: Enteral Nutritional Formula (Vital High Protein) 1,000 mls @ 70 mls/hr GT .[id number] [facility] Last Admin: 03/18/20 06:20 Dose: 70 mls/hr Documented by: Insulin Human Lispro (Insulin Lispro 100 Unit/Ml Insuln.Pen) 0 unit SC Q6 [facility]; Protocol Last Admin: 03/18/20 06:35 Dose: Not Given Documented by: L-Arginine/L-Glutamine/Calcium HMB ([facility] (Unflav[facility]) [facility]) [facility] Last Admin: 03/17/20 18:13 Dose: 1 packet Documented by: Lorazepam (Lorazepam 2 Mg/Ml Syringe) 2 mg IV Q2H PRN PRN; Protocol PRN Reason: CIWA score > 8 but <15 Lorazepam (Lorazepam 2 Mg/Ml Syringe) 2 mg IV UD PRN; Protocol PRN Reason: CIWA score >/=15. Lorazepam (Lorazepam 1 Mg Tablet) 2 mg GT Q2H PRN PRN; Protocol PRN Reason: CIWA score > 8 but <15 Lorazepam (Lorazepam 1 Mg Tablet) 2 mg GT UD PRN; Protocol PRN Reason: CIWA score >/=15. Magnesium Chloride (Magnesium Chloride 64 Mg Delay Rel.Tablet) 128 mg PO DAILY@0800 [facility] Last Admin: 03/17/20 10:50 Dose: 128 mg Documented by: Ondansetron HCl (Ondansetron 4 Mg/2 Ml Vial) 4 mg IV Q8H PRN PRN PRN Reason: NAUSEA/VOMITING Sodium Chloride (0.9% Saline Lock 10 Ml Syringe) 10 - 40 ml IV UD PRN PRN Reason: SALINE FLUSH Last Admin: 03/18/20 05:02 Dose: 10 ml Documented by: Thiamine HCl (Thiamine Hydrochloride 100 Mg Tablet) [facility] Stop: 03/19/20 08:01 Last Admin: 03/17/20 18:13 Dose: 100 mg Documented by: - Past Medical History Past Medical History (Chronic Problems): Chronic Problems (Last Reviewed 03/10/20 @ 13:[address] Micky Mauro MD) Paroxysmal atrial fibrillation (Chronic) Right ventricular dilation (Chronic) Right ventricular systolic dysfunction (Chronic) Non-ischemic cardiomyopathy (Chronic) PSVT (paroxysmal supraventricular tachycardia) (Chronic) Chronic combined systolic and diastolic CHF (congestive heart failure) (Chronic) Secondary pulmonary arterial hypertension (Chronic) Right bundle branch block (RBBB) (Chronic) Essential (primary) hypertension (Chronic) Hyperlipidemia (Chronic) Hepatic cirrhosis (Chronic) History of non-Hodgkin's lymphoma (Chronic) Hypergammaglobulinemia (Chronic) Iron deficiency anemia (Chronic) Plasma cell dyscrasia (Chronic) EtOH dependence (Chronic) Non-healing surgical wound (Chronic) Open wound of lumbar region with complication (Chronic) h/o osteomyelitis and is chronic nonhealing surgical wound s/p lumbar decompression surgery Recurrent deep vein thrombosis (DVT) (Chronic) - Past Surgical History Surgical History: colectomy - Partial., - - Splenectomy, Ileostomy reversal, L4-5 discectomy. Wound debridement 03/04/2017, 05/14/2017 at [facility]> - Social History Smoking Status: Current every day smoker Alcohol: Occasional - 3 shots of vodka per day usually Drugs: None - Family History Maternal Family History: Family History (Last Reviewed 03/10/20 @ 13:[address] Micky Mauro MD) Father Diabetes Heart disease Mother Heart disease History Items: Heart Disease Paternal Family History: Family History (Last Reviewed 03/10/20 @ 13:[address] Micky Mauro MD) Father Diabetes Heart disease Mother Heart disease History Items: Diabetes Review of Systems Unable to obtain accurate/complete ROS d/t: due to sedation and patient is on ventilator Patient Problems: Active and Suspected Problems (Last Reviewed 03/10/20 @ 13:[address] Micky Mauro MD) Sepsis due to pneumonia (Acute) Acute kidney injury (Acute) Hypoxemia (Acute) Elevated troponin (Acute) - Physical Exam Vitals/I&O's: Vital Signs Temp Pulse Resp BP Pulse Ox 99.9 F H 108 H 17 91/61 95 03/18/20 08:00 03/18/20 10:00 03/18/20 10:00 03/18/20 10:00 03/18/20 09:40 Oxygen Flow Rate (L/min) 6 Oxygen Delivery Method Mechanical Ventilator Weight: 107 kg Body Mass Index (BMI) 35.3 Intake and Output for Last 24 Hours 03/16/20 03/17/20 03/18/20 23:59 23:59 23:59 Intake Total 3219.31 / 3301.41 2132.52 / 2396.44 837.66 / 837.66 Output Total 160 / 160 775 / 805 355 / 355 Balance 3059.31 / 3141.41 1357.52 / 1591.44 482.66 / 482.66 General: - - Sedated on ventilator. NAD. HEENT: Atraumatic, PERRLA, Normocephalic Oral: Moist Mucosa, - - Intubated Neck: Supple Lungs: Rhonchi - bilaterally Cardiovascular: Irregular Rate - and rhythm Abdomen: Bowel Sounds Present, Soft, Non Tender Extremities: No clubbing, No cyanosis, No edema Skin: No rashes Musculoskeletal: No Muscle Wasting Lymphatic: No Cervical, Supraclavicular, or Inguinal Adenopathy Microbiology Past 72 Hours 03/16/20 15:12 Sputum, Induced/Lukens Gram Stain - Final 03/16/20 15:12 Sputum, Induced/Lukens Respiratory Culture - Preliminary Staphylococcus aureus 03/16/20 09:15 Sputum, Expectorated/Coughed Gram Stain - Final 03/16/20 09:15 Sputum, Expectorated/Coughed Respiratory Culture - Preliminary Staphylococcus aureus 03/15/20 08:55 Sputum, Expectorated/Coughed Gram Stain - Final 03/15/20 08:55 Sputum, Expectorated/Coughed Respiratory Culture - Final Mixed normal respiratory ignacio. No Streptococcus pneumoniae, beta-hemolytic Streptococcus or Staphylococcus aureus isolated. 03/14/20 09:25 Interface Orders Urine Culture - Final GPC Poss Enterococcus sp Gram negative briana 03/14/20 08:25 Blood Culture (Wb) - Right Forearm Blood Culture - Preliminary No growth in 48 hours. 03/14/20 07:50 Blood Culture (Wb) - Right Forearm Blood Culture - Preliminary No growth in 48 hours. 03/15/20 15:40 Stool C. difficile DNA Amplification - Final Laboratory Results 03/17/20 18:12: POC Glucose 93 03/18/20 00:05: POC Glucose 125 H 03/18/20 05:00: WBC 9.2, RBC 2.61 L, Hgb 9.4 L, Hct 29.2 L, MCV 111.9 H, MCH 36.0 H, MCHC 32.2, RDW Std Deviation 74.4 H, RDW Coeff of Reggie 18.2 H, Plt Count 191, MPV 10.8, Immature Gran % (Auto) 0.800, Neut % (Auto) 87.6 H, Lymph % (Auto) 4.5 L, Aurora % (Auto) 5.9, Eos % (Auto) 1.1, Baso % (Auto) 0.1, Absolute Neuts (auto) 8.0 H, Absolute Lymphs (auto) 0.41 L, Nucleated RBC % 0.7, Differential Comment SCANNED, Platelet Estimate ADEQUATE, Hypochromasia RARE, Anisocytosis 2+, Macrocytosis 2+ 03/18/20 05:00: Sodium 138, Potassium 3.4 L, Chloride 107, Carbon Dioxide 24.0, Anion Gap 7, BUN 87 H, Creatinine 3.15 H, Estim Creat Clear Calc 19.60, Est GFR (MDRD) Af Amer 25 L, Est GFR (MDRD) Non-Af 21 L, BUN/Creatinine Ratio 27.6 H, Glucose 116 H, Calcium 7.6 L, Phosphorus 3.5, Magnesium 2.5 03/18/20 06:34: POC Glucose 101 Current Medications Acetaminophen (Acetaminophen 650 Mg/20 Ml Udc) 650 mg GT Q6H PRN PRN PRN Reason: Pain Score 1-10/Temp > 100.7 F Albuterol Sulfate (Albuterol 2.5 Mg/3 Ml Vial.Neb.) 2.5 mg INHALATION Q2H PRN PRN PRN Reason: DYSPNEA Apixaban (Apixaban 2.5 Mg Tablet) 2.5 mg GT BID [facility] Last Admin: 03/17/20 22:28 Dose: 2.5 mg Documented by: Atorvastatin Calcium (Atorvastatin Calcium 20 Mg Tablet) 20 mg GT QHS [facility] Last Admin: 03/17/20 22:29 Dose: 20 mg Documented by: Chlorhexidine Gluconate (Chlorhexidine 15 Ml) 15 ml PO BID [facility] Last Admin: 03/17/20 22:48 Dose: 15 ml Documented by: Gabapentin (Gabapentin 600 Mg Tablet) 600 mg GT QHS [facility] Last Admin: 03/17/20 22:34 Dose: 600 mg Documented by: Gabapentin (Gabapentin 300 Mg Capsule) 300 mg GT DAILY [facility] Last Admin: 03/17/20 10:44 Dose: 300 mg Documented by: Ceftriaxone Sodium 2 gm/ (Sodium Chloride) 50 mls @ 100 mls/hr IV Q24H [facility] Last Infusion: 03/17/20 13:34 Dose: Infused Documented by: Azithromycin 500 mg/ Dextrose 255 mls @ 250 mls/hr IV Q24 [facility] Stop: 03/20/20 10:01 Last Infusion: 03/17/20 12:28 Dose: Infused Documented by: Sodium Chloride () 250 mls @ 15 mls/hr IV .[id number] PRN PRN Reason: Saline Flush Last Infusion: 03/18/20 10:27 Dose: 0 mls/hr Documented by: Sodium Chloride () 250 mls @ 15 mls/hr IV .[id number] PRN PRN Reason: Additional IVPB Infusion Norepinephrine Bitartrate 8 mg (/ Sodium Chloride) 250 mls @ 9.375 mls/hr CONT INF .[id number] [facility]; Protocol Last Titration: 03/18/20 10:00 Dose: 7 mcg/min, 13.1 mls/hr Documented by: Propofol (Diprivan) 1,000 mg in 100 mls @ 6.42 mls/hr CONT INF .Q12H [facility]; Protocol Last Titration: 03/18/20 10:00 Dose: 15 mcg/kg/min, 9.6 mls/hr Documented by: Fentanyl Citrate 1,000 mcg/ (Sodium Chloride) 100 mls @ 5 mls/hr CONT INF .Q20H [facility]; Protocol Last Titration: 03/18/20 10:00 Dose: 50 mcg/hr, 5 mls/hr Documented by: Pantoprazole Sodium 40 mg/ (Sodium Chloride) 110 mls @ 330 mls/hr IV Q12 [facility] Last Admin: 03/18/20 10:27 Dose: 330 mls/hr Documented by: Amiodarone HCl 360 mg/ (Dextrose) 200 mls @ 16.667 mls/hr CONT INF .Q12H [facility] Last Infusion: 03/18/20 10:00 Dose: 0.5 mg/min, 16.7 mls/hr Documented by: Enteral Nutritional Formula (Vital High Protein) 1,000 mls @ 70 mls/hr GT .[id number] [facility] Last Admin: 03/18/20 06:20 Dose: 70 mls/hr Documented by: Insulin Human Lispro (Insulin Lispro 100 Unit/Ml Insuln.Pen) 0 unit SC Q6 [facility]; Protocol Last Admin: 03/18/20 06:35 Dose: Not Given Documented by: L-Arginine/L-Glutamine/Calcium HMB ([facility] (Unflavored) Packet) [facility] Last Admin: 03/17/20 18:13 Dose: 1 packet Documented by: Lorazepam (Lorazepam 2 Mg/Ml Syringe) 2 mg IV Q2H PRN PRN; Protocol PRN Reason: CIWA score > 8 but <15 Lorazepam (Lorazepam 2 Mg/Ml Syringe) 2 mg IV UD PRN; Protocol PRN Reason: CIWA score >/=15. Lorazepam (Lorazepam 1 Mg Tablet) 2 mg GT Q2H PRN PRN; Protocol PRN Reason: CIWA score > 8 but <15 Lorazepam (Lorazepam 1 Mg Tablet) 2 mg GT UD PRN; Protocol PRN Reason: CIWA score >/=15. Magnesium Chloride (Magnesium Chloride 64 Mg Delay Rel.Tablet) 128 mg PO DAILY@0800 [facility] Last Admin: 03/17/20 10:50 Dose: 128 mg Documented by: Ondansetron HCl (Ondansetron 4 Mg/2 Ml Vial) 4 mg IV Q8H PRN PRN PRN Reason: NAUSEA/VOMITING Sodium Chloride (0.9% Saline Lock 10 Ml Syringe) 10 - 40 ml IV UD PRN PRN Reason: SALINE FLUSH Last Admin: 03/18/20 05:02 Dose: 10 ml Documented by: Thiamine HCl (Thiamine Hydrochloride 100 Mg Tablet) [facility] Stop: 03/19/20 08:01 Last Admin: 03/17/20 18:13 Dose: 100 mg Documented by: Assessment/Plan All Active Problems (Last Reviewed 03/10/20 @ 13:[address] Micky Mauro MD) Sepsis due to pneumonia (Acute) Acute kidney injury (Acute) Hypoxemia (Acute) Elevated troponin (Acute) Elevated INR (Resolved) Skin tear of left elbow without complication (Resolved) 1. Acute kidney injury on chronic kidney disease stage 3. Baseline SCr has been around 1.8 mg/dL. BRIANA is due to ischemic ATN related to septic shock. Renal function is stable and the pt is not oliguric. There is some signs of renal function improvement (SCr did decrease in the last 24 hrs). So, no need for [employer] APPRENTICE today. However, the pt is still at risk for further renal injury since he is still on IV pressor. Current medications are reviewed and are appropriately dosed for the current CrCl. Will continue to follow with you. 2. Hypokalemia. Mild. Replaced as per ICU team since pt has afib. Recheck K and Mg in am. 3. Anemia. Multifactorial. 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 Will hold off on restarting KACEY since it does not work well in the setting of infection. Will reconsider in the future. 4. Septic shock. Pt has LLL pneumonia. On IV pressor which is being weaned. On antibiotic as per sort manager and hospitalist. 5. Acute hypoxic respiratory failure. Ventilator dependent. Management as per sort manager.
[2020-03-18] MEDS: Thiamine Hydrochloride 100 MG Tablet GT ×2 (11:03→16:10)
[2020-03-18] MEDS: APIXABAN 2.5 MG TABLET GT ×2 (11:03→22:11)
[2020-03-18] MEDS: Gabapentin 300 MG Capsule GT (11:03)
[2020-03-18] MEDS: Chlorhexidine 15 ML PO ×2 (11:04→22:10)
[2020-03-18] MEDS: Juven (unflavored) Packet 1 PACKET GT ×2 (11:04→16:10)
[2020-03-18] MEDS: Folic Acid 1 MG Tablet GT (11:04)
[2020-03-18] MEDS: Magnesium Chloride 64 MG Delay Rel.Tablet 128 MG PO (11:10)
[2020-03-18] MEDS: Insulin Lispro 100 UNIT/ML INSULN.PEN SC (12:32)
[2020-03-18 12:45] LABS: Bedside Glucose 168 mg/dL (70-110)
[2020-03-18 18:41] LABS: Bedside Glucose 128 mg/dL (70-110)
[2020-03-18] MEDS: Menthol/Lanolin/Calamine/Znox 113 GM Tube 1 APPLIC TOPICAL (20:13)
[2020-03-18] MEDS: Atorvastatin Calcium 20 MG Tablet GT (22:11)
[2020-03-18] MEDS: Gabapentin 600 MG Tablet GT (22:11)
[2020-03-19] VITALS (36 sets, daily range): BP systolic 90–116; BP diastolic 45–80; PULSE 70–128; RESP 12–30; TEMP 35.7–37.4; O2SAT 90–995
[2020-03-19] MEDS: Vital High Protein 1,000 ML 70 ML GT ×2 (00:11→04:18)
[2020-03-19] MEDS: Amiodarone 360 MG in Dextrose 5% Viaflo Bag 192.8 ML 16.7 MG CONT INF (01:14)
[2020-03-19 01:21] LABS: Bedside Glucose 149 mg/dL (70-110)
[2020-03-19 05:50] LABS: Albumin, Serum 1.5 g/dL (3.2-5.0); BUN 91 mg/dL (7-18); BUN/Creat Ratio 33.1 RATIO (10-20); Calcium,Total 7.6 mg/dL (8.5-10.1); Chloride 110 mmol/L (98-107); Creatinine, Serum 2.75 mg/dL (0.70-1.30); EST Glomerular Filtration Rate 24 mL/min (>60); Est Glom Filt Rate - Afr Amer 29 mL/min (>60); Estimated Creatinine Clearance 22.45 ml/min; Glucose 131 mg/dL (74-106); Magnesium 2.3 mg/dL (1.6-2.6); Phosphorus 2.7 mg/dL (2.5-4.9); Potassium 3.5 mmol/L (3.5-5.1); Sodium Level 140 mmol/L (136-145)
[2020-03-19 06:01] LABS: Allen Test Positive; Base Excess -5 mmol/L (-2 to +2); Bicarbonate 20.3 mmol/L (22-26); Blood Gas Specimen Type ART; FI02 25; Mode CPAP/PS; O2 Delivery Device Adult Vent; PEEP 5; PO2 61 mmHG (75-100); PS 5; SITE L Radial; SO2 91 % (95-99); Total Carbon Dioxide 21 mmol/L; pCO2 33.3 mmHg (35-45); pH 7.39 (7.35-7.45)
[2020-03-19] MEDS: TITRATION PARAMETER CHANGE 1 EACH IV (06:47)
[2020-03-19 06:51] LABS: Bedside Glucose 119 mg/dL (70-110)
--- NOTE | 2020-03-19 07:14 | PCM.PN.INT ---
Subjective: Patient did okay overnight. Patient remains on Levophed at 5, but heart rate has been better controlled. Patient was able to pass a spontaneous breathing trial this morning was successfully extubated. General: Alert, Oriented x3, Cooperative, - - Appears older than stated age. HEENT: Atraumatic, PERRLA, EOMI, Normocephalic, - - Scleral injection without icterus Oral: Moist Mucosa, No Gingival or Mucosal Lesions/ Ulcerations Neck: Supple, No Nodes, Trachea Midline, - - Right IJ is clean, dry and intact Lungs: No wheeze, No rales, Diminished, Rhonchi - Left face Cardiovascular: Normal S1, Normal S2, No murmurs, Irregular Rate, No rub noted, No Gallop, - - A. fib noted on telemetry Abdomen: Bowel Sounds Present, Soft, Non Tender, Non-Distended, Obese Extremities: No clubbing, No cyanosis, Edema Skin: - - No change from previous Musculoskeletal: No Tenderness to Palpation of Joints or Extremities Lymphatic: No Cervical, Supraclavicular, or Inguinal Adenopathy Neurological: Cranial nerves II-XII grossly intact, Neuro grossly intact, Motor Exam 5/5 strength throughout Psych/Mental Status: Anxious, Restless Vital Signs Temp Pulse Resp BP Pulse Ox 36.9 C 114 H 28 H 116/72 97 03/19/20 06:00 03/19/20 06:00 03/19/20 06:00 03/19/20 06:00 03/19/20 06:00 Oxygen Flow Rate (L/min) 6 Oxygen Delivery Method Mechanical Ventilator Weight: 107.6 kg Body Mass Index (BMI) 35.3 Intake and Output for Last 24 Hours 03/17/20 03/18/20 03/19/20 23:59 23:59 23:59 Intake Total 2132.52 / 2396.44 2355.58 / 2462.66 400.19 / 400.19 Output Total 775 / 805 1155 / 1295 465 / 465 Balance 1357.52 / 1591.44 1200.58 / 1167.66 -64.81 / -64.81 Labs (Last 48 Hours) 03/17/20 03/18/20 03/18/20 18:12 00:05 05:00 WBC 9.2 RBC 2.61 L Hgb 9.4 L Hct 29.2 L MCV 111.9 H MCH 36.0 H MCHC 32.2 RDW Std Deviation 74.4 H RDW Coeff of Reggie 18.2 H Plt Count 191 MPV 10.8 Immature Gran % (Auto) 0.800 Neut % (Auto) 87.6 H Lymph % (Auto) 4.5 L [place] % (Auto) 5.9 Eos % (Auto) 1.1 Baso % (Auto) 0.1 Absolute Neuts (auto) 8.0 H Absolute Lymphs (auto) 0.41 L Nucleated RBC % 0.7 Differential Comment SCANNED Platelet Estimate ADEQUATE Hypochromasia RARE Anisocytosis 2+ Macrocytosis 2+ Specimen Type Sample Site pH Bicarbonate Actual Total CO2 Base Excess O2 Saturation O2 % ABG pCO2 ABG pO2 Arturo Test O2 Delivery Device Vent Mode POC PEEP POC Pressure Suppt Sodium Potassium Chloride Carbon Dioxide Anion Gap BUN Creatinine Estim Creat Clear Calc Est GFR (MDRD) Af Amer Est GFR (MDRD) Non-Af BUN/Creatinine Ratio Glucose Calcium Phosphorus Magnesium Albumin POC Glucose 93 125 H 03/18/20 03/18/20 03/18/20 05:00 06:34 12:28 WBC RBC Hgb Hct MCV MCH MCHC RDW Std Deviation RDW Coeff of Reggie Plt Count MPV Immature Gran % (Auto) Neut % (Auto) Lymph % (Auto) [place] % (Auto) Eos % (Auto) Baso % (Auto) Absolute Neuts (auto) Absolute Lymphs (auto) Nucleated RBC % Differential Comment Platelet Estimate Hypochromasia Anisocytosis Macrocytosis Specimen Type Sample Site pH Bicarbonate Actual Total CO2 Base Excess O2 Saturation O2 % ABG pCO2 ABG pO2 Arturo Test O2 Delivery Device Vent Mode POC PEEP POC Pressure Suppt Sodium 138 Potassium 3.4 L Chloride 107 Carbon Dioxide 24.0 Anion Gap 7 BUN 87 H Creatinine 3.15 H Estim Creat Clear Calc 19.60 Est GFR (MDRD) Af Amer 25 L Est GFR (MDRD) Non-Af 21 L BUN/Creatinine Ratio 27.6 H Glucose 116 H Calcium 7.6 L Phosphorus 3.5 Magnesium 2.5 Albumin POC Glucose 101 168 H 03/18/20 03/19/20 03/19/20 18:35 00:06 05:20 WBC RBC Hgb Hct MCV MCH MCHC RDW Std Deviation RDW Coeff of Reggie Plt Count MPV Immature Gran % (Auto) Neut % (Auto) Lymph % (Auto) [place] % (Auto) Eos % (Auto) Baso % (Auto) Absolute Neuts (auto) Absolute Lymphs (auto) Nucleated RBC % Differential Comment Platelet Estimate Hypochromasia Anisocytosis Macrocytosis Specimen Type Sample Site pH Bicarbonate Actual Total CO2 Base Excess O2 Saturation O2 % ABG pCO2 ABG pO2 Arturo Test O2 Delivery Device Vent Mode POC PEEP POC Pressure Suppt Sodium 140 Potassium 3.5 Chloride 110 H Carbon Dioxide 24.0 Anion Gap BUN 91 H Creatinine 2.75 H Estim Creat Clear Calc 22.45 Est GFR (MDRD) Af Amer 29 L Est GFR (MDRD) Non-Af 24 L BUN/Creatinine Ratio 33.1 H Glucose 131 H Calcium 7.6 L Phosphorus 2.7 Magnesium 2.3 Albumin 1.5 L POC Glucose 128 H 149 H 03/19/20 03/19/20 05:54 06:24 WBC RBC Hgb Hct MCV MCH MCHC RDW Std Deviation RDW Coeff of Reggie Plt Count MPV Immature Gran % (Auto) Neut % (Auto) Lymph % (Auto) [place] % (Auto) Eos % (Auto) Baso % (Auto) Absolute Neuts (auto) Absolute Lymphs (auto) Nucleated RBC % Differential Comment Platelet Estimate Hypochromasia Anisocytosis Macrocytosis Specimen Type ART Sample Site L Radial pH 7.39 Bicarbonate Actual 20.3 L Total CO2 21 Base Excess -5 L O2 Saturation 91 L O2 % 25 ABG pCO2 33.3 L ABG pO2 61 L Arturo Test Positive O2 Delivery Device Adult Vent Vent Mode CPAP/PS POC PEEP 5 POC Pressure Suppt 5 Sodium Potassium Chloride Carbon Dioxide Anion Gap BUN Creatinine Estim Creat Clear Calc Est GFR (MDRD) Af Amer Est GFR (MDRD) Non-Af BUN/Creatinine Ratio Glucose Calcium Phosphorus Magnesium Albumin POC Glucose 119 H Microbiology 03/16/20 15:12 Sputum, Induced/Lukens Gram Stain - Final 03/16/20 15:12 Sputum, Induced/Lukens Respiratory Culture - Preliminary Staphylococcus aureus 03/16/20 09:15 Sputum, Expectorated/Coughed Gram Stain - Final 03/16/20 09:15 Sputum, Expectorated/Coughed Respiratory Culture - Preliminary Staphylococcus aureus 03/15/20 08:55 Sputum, Expectorated/Coughed Gram Stain - Final 03/15/20 08:55 Sputum, Expectorated/Coughed Respiratory Culture - Final Mixed normal respiratory ignacio. No Streptococcus pneumoniae, beta-hemolytic Streptococcus or Staphylococcus aureus isolated. Medical Necessity - Tobacco Use Smoking Status: Current every day smoker Assessment/Plan All Active Problems (Last Reviewed 03/10/20 @ 13:[address] Micky Mauro MD) Sepsis due to pneumonia (Acute) Acute kidney injury (Acute) Hypoxemia (Acute) Elevated troponin (Acute) Elevated INR (Resolved) Skin tear of left elbow without complication (Resolved) RECOMMENDATIONS: 1. Finish current bag on amiodarone drip and then initiate amiodarone 200 mg daily 2. Wean Levophed as tolerated 3. Wean oxygen as tolerated 4. Continue to support blood pressure and monitor renal function. Appreciate nephrology input 5. Continue antibiotics anticipating a 10-day course 6. Bedside swallow evaluation. Okay to switch to p.o. Protonix if tolerates swallow eval IMPRESSIONS: 1. Septic shock secondary to left lower lobe pneumonia Patient does have a significant left lower lobe infiltrate noted on chest x-ray. Patient has had pulmonary function tests suggesting restriction in the past. Patient has multiple cultures positive including an expectorated and a tracheal aspirate showing staph aureus. Patient would be at increased risk for bacteremia given his history of splenectomy. Multiple cultures have been positive, but patient appears to be improving on current regimen. Continue current antibiotics with plans to complete a 10-day course 2. Acute hypoxic respiratory insufficiency secondary to community-acquired left lower lobe pneumonia Patient with hypercarbic respiratory failure developing shortly after arrival to the intensive care unit. Unclear if this is related to worsening renal function, severe sepsis, lower lobe pneumonia or medications. Patient appears to have responded to intubation appropriately. Careful administration of narcotics 3. Acute kidney injury on CKD stage IV Patient's baseline appears to be about 1.8 and patient has been around 3 throughout the hospitalization. Patient would be at risk for hepatorenal syndrome given history of drinking. Prerenal etiology would also be a consideration. Renal function is improving today. Appreciate renal input 4. History of A. fib/flutter with RVR/cardiomyopathy Patient is followed by Dr. Mauro as an outpatient. Patient appears to have responded to amiodarone. Will transition to p.o. tomorrow. Consider cardiology consultation as initiation of pressors and congestive heart failure will complicate overall condition. Patient does appear to be improved on amiodarone. 5. History of DVT/PE on Eliquis Patient is on Eliquis at baseline. Patient does appear to have slightly distended abdomen and may have an element of ascites. We will hold off on a paracentesis for now, but this may need to be evaluated in the future. 6. Delirium with history of alcohol abuse Patient with acute metabolic encephalopathy from possible alcohol withdrawal. Tremor was noted. Patient currently on systemic sedation, so CIWA protocol is not indicated 7. Hypertension/hyperlipidemia/history of non-Hodgkin's lymphoma status post splenectomy Complicates care, management, recovery and prognosis. Discontinue baseline antihypertensive medications. TIME: 35 minutes critical care time spent addressing patient's septic shock, hypoxic respiratory insufficiency, acute kidney injury, A. fib with RVR, possible alcohol withdrawal, review of all data and collaboration with care team (5:30 AM to 6:30 AM) 9xxxx: [id number] Critical care first hour
--- NOTE | 2020-03-19 11:36 | PCM.PN.HOSP ---
Patient Problems: Active and Suspected Problems (Last Reviewed 03/10/20 @ 13:[address] Micky Mauro MD) Sepsis due to pneumonia (Acute) Acute kidney injury (Acute) Hypoxemia (Acute) Elevated troponin (Acute) Subjective: Extubated this morning and doing well. Had multiple discussions with him about not being able to go home today as he is still too weak and will likely need to be transferred to a senior living at discharge Vitals/I&O's: Vital Signs Temp Pulse Resp BP Pulse Ox 98.7 F 120 H 25 H 113/71 93 03/19/20 07:00 03/19/20 07:00 03/19/20 07:00 03/19/20 07:00 03/19/20 10:38 Oxygen Flow Rate (L/min) 2 Oxygen Delivery Method Nasal Cannula Weight: 237 lb 3.478 oz Body Mass Index (BMI) 35.3 Intake and Output for Last 24 Hours 03/17/20 03/18/20 03/19/20 23:59 23:59 23:59 Intake Total 2132.52 / 2396.44 2355.58 / 2462.66 409.59 / 409.59 Output Total 775 / 805 1155 / 1295 465 / 465 Balance 1357.52 / 1591.44 1200.58 / 1167.66 -55.41 / -55.41 General: Alert, oriented x3, no acute distress HEENT: Atraumatic, PERRLA, EOMI, normocephalic Oral: Moist Mucosa Neck: Supple, No JVD Lungs: Normal air movement, Diminished, Rhonchi, Wheezes Cardiovascular: Regular Rhythm, Normal S1, Normal S2, No murmurs, Tachycardic Abdomen: Soft, Non Tender, Non-Distended, No Hepato-splenomegaly Extremities: No edema, Capillary Refill Less than 3 Seconds Skin: No rashes, No breakdown Neurological: Neuro grossly intact, sensation intact Psych/Mental Status: Flat affect Microbiology Past 72 Hours 03/14/20 08:25 Blood Culture (Wb) - Right Forearm Blood Culture - Final No growth in 5 days. 03/16/20 15:12 Sputum, Induced/Lukens Gram Stain - Final 03/16/20 15:12 Sputum, Induced/Lukens Respiratory Culture - Final Meth. resistant Staph. aureus 03/16/20 09:15 Sputum, Expectorated/Coughed Gram Stain - Final 03/16/20 09:15 Sputum, Expectorated/Coughed Respiratory Culture - Final Meth. resistant Staph. aureus 03/15/20 08:55 Sputum, Expectorated/Coughed Gram Stain - Final 03/15/20 08:55 Sputum, Expectorated/Coughed Respiratory Culture - Final Mixed normal respiratory ignacio. No Streptococcus pneumoniae, beta-hemolytic Streptococcus or Staphylococcus aureus isolated. 03/14/20 09:25 Interface Orders Urine Culture - Final GPC Poss Enterococcus sp Gram negative briana 03/14/20 07:50 Blood Culture (Wb) - Right Forearm Blood Culture - Preliminary No growth in 48 hours. Laboratory Results 03/18/20 12:28: POC Glucose 168 H 03/18/20 18:35: POC Glucose 128 H 03/19/20 00:06: POC Glucose 149 H 03/19/20 05:20: Sodium 140, Potassium 3.5, Chloride 110 H, Carbon Dioxide 24.0, BUN 91 H, Creatinine 2.75 H, Estim Creat Clear Calc 22.45, Est GFR (MDRD) Af Amer 29 L, Est GFR (MDRD) Non-Af 24 L, BUN/Creatinine Ratio 33.1 H, Glucose 131 H, Calcium 7.6 L, Phosphorus 2.7, Magnesium 2.3, Albumin 1.5 L 03/19/20 05:54: Specimen Type ART, Sample Site L Radial, pH 7.39, Bicarbonate Actual 20.3 L, Total CO2 21, Base Excess -5 L, O2 Saturation 91 L, O2 % 25, ABG pCO2 33.3 L, ABG pO2 61 L, Arturo Test Positive, O2 Delivery Device Adult Vent, Vent Mode CPAP/PS, POC PEEP 5, POC Pressure Suppt 5 03/19/20 06:24: POC Glucose 119 H Current Medications Acetaminophen (Acetaminophen 650 Mg/20 Ml Udc) 650 mg GT Q6H PRN PRN PRN Reason: Pain Score 1-10/Temp > 100.7 F Albuterol Sulfate (Albuterol 2.5 Mg/3 Ml Vial.Neb.) 2.5 mg INHALATION Q2H PRN PRN PRN Reason: DYSPNEA Amiodarone HCl (Amiodarone 200 Mg Tablet) 200 mg PO DAILY SOFIA Apixaban (Apixaban 2.5 Mg Tablet) 2.5 mg GT BID [facility] Last Admin: 03/18/20 22:11 Dose: 2.5 mg Documented by: Atorvastatin Calcium (Atorvastatin Calcium 20 Mg Tablet) 20 mg GT QHS [facility] Last Admin: 03/18/20 22:11 Dose: 20 mg Documented by: Calamine/Phenol (Menthol/Lanolin/Calamine/Znox 113 Gm Tube) 1 applic TOPICAL BID [facility]; Protocol Last Admin: 03/18/20 20:13 Dose: 1 applic Documented by: Chlorhexidine Gluconate (Chlorhexidine 15 Ml) 15 ml PO BID [facility] Last Admin: 03/18/20 22:10 Dose: 15 ml Documented by: Gabapentin (Gabapentin 600 Mg Tablet) 600 mg GT QHS [facility] Last Admin: 03/18/20 22:11 Dose: 600 mg Documented by: Gabapentin (Gabapentin 300 Mg Capsule) 300 mg GT DAILY [facility] Last Admin: 03/18/20 11:03 Dose: 300 mg Documented by: Hydromorphone HCl (Hydromorphone 2 Mg Tablet) 2 mg PO Q4H PRN PRN PRN Reason: Pain Score 4-10 Ceftriaxone Sodium 2 gm/ (Sodium Chloride) 50 mls @ 100 mls/hr IV Q24H [facility] Last Infusion: 03/18/20 13:30 Dose: Infused Documented by: Sodium Chloride () 250 mls @ 15 mls/hr IV .[id number] PRN PRN Reason: Saline Flush Last Admin: 03/18/20 22:21 Dose: 15 mls/hr Documented by: Sodium Chloride () 250 mls @ 15 mls/hr IV .[id number] PRN PRN Reason: Additional IVPB Infusion Norepinephrine Bitartrate 8 mg (/ Sodium Chloride) 250 mls @ 9.375 mls/hr CONT INF .[id number] [facility]; Protocol Last Titration: 03/19/20 07:00 Dose: 5 mcg/min, 9.4 mls/hr Documented by: Pantoprazole Sodium 40 mg/ (Sodium Chloride) 110 mls @ 330 mls/hr IV Q12 [facility] Last Infusion: 03/18/20 22:29 Dose: Infused Documented by: Amiodarone HCl 360 mg/ (Dextrose) 200 mls @ 16.667 mls/hr CONT INF .Q12H [facility] Last Infusion: 03/19/20 07:00 Dose: 0.5 mg/min, 16.7 mls/hr Documented by: Insulin Human Lispro (Insulin Lispro 100 Unit/Ml Insuln.Pen) 0 unit [facility]; Protocol L-Arginine/L-Glutamine/Calcium HMB (Jackson (Unflavored) Packet) 1 packet GT BIDCM [facility] Last Admin: 03/18/20 16:10 Dose: 1 packet Documented by: Lorazepam (Lorazepam 2 Mg/Ml Syringe) 2 mg IV Q2H PRN PRN; Protocol PRN Reason: CIWA score > 8 but <15 Lorazepam (Lorazepam 2 Mg/Ml Syringe) 2 mg IV UD PRN; Protocol PRN Reason: CIWA score >/=15. Lorazepam (Lorazepam 1 Mg Tablet) 2 mg GT Q2H PRN PRN; Protocol PRN Reason: CIWA score > 8 but <15 Lorazepam (Lorazepam 1 Mg Tablet) 2 mg GT UD PRN; Protocol PRN Reason: CIWA score >/=15. Magnesium Chloride (Magnesium Chloride 64 Mg Delay Rel.Tablet) 128 mg PO DAILY@0800 [facility] Last Admin: 03/18/20 11:10 Dose: 128 mg Documented by: Ondansetron HCl (Ondansetron 4 Mg/2 Ml Vial) 4 mg IV Q8H PRN PRN PRN Reason: NAUSEA/VOMITING Sodium Chloride (0.9% Saline Lock 10 Ml Syringe) 10 - 40 ml IV UD PRN PRN Reason: SALINE FLUSH Last Admin: 03/18/20 05:02 Dose: 10 ml Documented by: STROKE Vital Signs/Narrative: Vital Signs Pulse Ox 03/19/20 10:38 93 03/19/20 10:37 93 Medical Necessity - Tobacco Use Smoking Status: Current every day smoker Assessment/Plan All Active Problems (Last Reviewed 03/10/20 @ 13:[address] Micky Mauro MD) Sepsis due to pneumonia (Acute) Acute kidney injury (Acute) Hypoxemia (Acute) Elevated troponin (Acute) Elevated INR (Resolved) Skin tear of left elbow without complication (Resolved) 1. Septic shock and acute hypoxic respiratory failure secondary to community-acquired pneumonia in the left lower lobe secondary to a likely gram-positive organism/BRIANA on CKD 3 -He was started on azithromycin and Rocephin, he does have a history of splenectomy secondary to non-Hodgkin's lymphoma -He had his blood pressure dropped, he was on metoprolol, Cardizem, and Lasix secondary to his a flutter these were all discontinued however after fluid bolus his blood pressure did not come up therefore he was transferred to the ICU and started on Levophed -Continue with Levophed, the chandelier maker has been consulted and appreciate his assistance -We will continue to monitor his renal function, and hold any nephrotoxic agents 2. History of paroxysmal A. fib/A-flutter/HTN/HLD/indeterminate troponin/nonischemic cardiomyopathy -His troponin was slightly elevated to 0.197 his BNP on admission was 2666, the troponin was likely secondary to his tachycardia as well as sepsis -When able we will need to restart his Lasix -Was started on amiodarone yesterday for his elevated heart rate. -In 2019, EF was 55% with pulmonary artery systolic pressure 46 mmHg 3. History of DVT/PE -Stable -Continue with Eliquis 4. Nonhealing surgical wounds of his lower back -We will consult wound care nurse for evaluation -These are secondary to surgical debridement for an abscess following lumbar spine surgery 5. Chronic alcoholic cirrhosis/anemia of chronic disease -Hold his Lasix and his lactulose secondary to his septic shock -His anemia is at baseline likely related to his cirrhosis as well as his chronic kidney disease DVT: Shailesh Inpatient E&M: 59017 Subs Hosp L2
[2020-03-19] MEDS: HYDROmorphone 2 MG TABLET PO ×2 (11:56→22:11)
--- NOTE | 2020-03-19 12:01 | CM.UR ---
Participated in interdisciplinary rounds this am. Patient is currently on 4 liters of oxygen. Is a co2 retainer so they will try to decrease o2 more. Having diarrhea. Plan is to change to PO amiodarone once current IV amiodarone bag is empty. Remains in afib. Has chronic back pain and a chronic wound. Sputum + staph, awaiting sensitivity. Care management will continue to follow for discharge planning. Guanako Huddleston RN, CCM.
[2020-03-19] MEDS: Menthol/Lanolin/Calamine/Znox 113 GM Tube 1 APPLIC TOPICAL ×2 (12:47→22:13)
[2020-03-19 13:16] LABS: Bedside Glucose 101 mg/dL (70-110)
[2020-03-19] MEDS: Pantoprazole Sodium 20 MG Tablet PO ×2 (14:10→22:12)
[2020-03-19] MEDS: Gabapentin 300 MG Capsule GT ×2 (14:10→22:12)
[2020-03-19] MEDS: APIXABAN 2.5 MG TABLET GT ×2 (14:10→22:12)
[2020-03-19] MEDS: Linezolid 600 MG Tablet PO ×2 (14:12→22:12)
[2020-03-19] MEDS: Magnesium Chloride 64 MG Delay Rel.Tablet 128 MG PO (14:18)
--- NOTE | 2020-03-19 16:26 | NURSING ---
ed re chronic illness deferred till acute illness resolving
[2020-03-19] MEDS: Juven (unflavored) Packet 1 PACKET GT (16:50)
[2020-03-19] MEDS: 0.9% Saline Lock 10 ML Syringe IV (16:50)
[2020-03-19 17:25] LABS: Bedside Glucose 105 mg/dL (70-110)
--- NOTE | 2020-03-19 19:33 | PCM.PN.REN ---
Patient Problems: Active and Suspected Problems (Last Reviewed 03/10/20 @ 13:[address] Micky Mauro MD) Sepsis due to pneumonia (Acute) Acute kidney injury (Acute) Hypoxemia (Acute) Elevated troponin (Acute) Subjective: Following for BRIANA on CKD. Pt is extubated. He is mildly confused. He denies CP or SOB. - Physical Exam Vitals/I&O's: Vital Signs Temp Pulse Resp BP Pulse Ox 99.3 F H 115 H 25 H 110/78 93 03/19/20 18:00 03/19/20 18:00 03/19/20 18:00 03/19/20 18:00 03/19/20 18:00 Oxygen Flow Rate (L/min) 1 Oxygen Delivery Method Nasal Cannula Weight: 107.6 kg Body Mass Index (BMI) 35.3 Intake and Output for Last 24 Hours 03/17/20 03/18/20 03/19/20 23:59 23:59 23:59 Intake Total 2132.52 / 2396.44 2355.58 / 2462.66 757.40 / 757.40 Output Total 775 / 805 1155 / 1295 815 / 815 Balance 1357.52 / 1591.44 1200.58 / 1167.66 -57.60 / -57.60 General: Alert, Cooperative, Confused HEENT: Atraumatic Oral: Moist Mucosa Neck: Supple Lungs: Clear to auscultation - anteriorly Cardiovascular: Normal S1, Normal S2, No murmurs Abdomen: Bowel Sounds Present, Soft, Non Tender Extremities: No edema Microbiology Past 72 Hours 03/14/20 07:50 Blood Culture (Wb) - Right Forearm Blood Culture - Final No growth in 5 days. 03/14/20 08:25 Blood Culture (Wb) - Right Forearm Blood Culture - Final No growth in 5 days. 03/16/20 15:12 Sputum, Induced/Lukens Gram Stain - Final 03/16/20 15:12 Sputum, Induced/Lukens Respiratory Culture - Final Meth. resistant Staph. aureus 03/16/20 09:15 Sputum, Expectorated/Coughed Gram Stain - Final 03/16/20 09:15 Sputum, Expectorated/Coughed Respiratory Culture - Final Meth. resistant Staph. aureus 03/15/20 08:55 Sputum, Expectorated/Coughed Gram Stain - Final 03/15/20 08:55 Sputum, Expectorated/Coughed Respiratory Culture - Final Mixed normal respiratory ignacio. No Streptococcus pneumoniae, beta-hemolytic Streptococcus or Staphylococcus aureus isolated. Laboratory Results 03/19/20 00:06: POC Glucose 149 H 03/19/20 05:20: Sodium 140, Potassium 3.5, Chloride 110 H, Carbon Dioxide 24.0, BUN 91 H, Creatinine 2.75 H, Estim Creat Clear Calc 22.45, Est GFR (MDRD) Af Amer 29 L, Est GFR (MDRD) Non-Af 24 L, BUN/Creatinine Ratio 33.1 H, Glucose 131 H, Calcium 7.6 L, Phosphorus 2.7, Magnesium 2.3, Albumin 1.5 L 03/19/20 05:54: Specimen Type ART, Sample Site L Radial, pH 7.39, Bicarbonate Actual 20.3 L, Total CO2 21, Base Excess -5 L, O2 Saturation 91 L, O2 % 25, ABG pCO2 33.3 L, ABG pO2 61 L, Arturo Test Positive, O2 Delivery Device Adult Vent, Vent Mode CPAP/PS, POC PEEP 5, POC Pressure Suppt 5 03/19/20 06:24: POC Glucose 119 H 03/19/20 13:05: POC Glucose 101 03/19/20 16:50: POC Glucose 105 Current Medications Acetaminophen (Acetaminophen 650 Mg/20 Ml Udc) 650 mg GT Q6H PRN PRN PRN Reason: Pain Score 1-10/Temp > 100.7 F Albuterol Sulfate (Albuterol 2.5 Mg/3 Ml Vial.Neb.) 2.5 mg INHALATION Q2H PRN PRN PRN Reason: DYSPNEA Amiodarone HCl (Amiodarone 200 Mg Tablet) 200 mg PO DAILY [facility] Last Admin: 03/19/20 12:48 Dose: Not Given Documented by: Apixaban (Apixaban 2.5 Mg Tablet) 2.5 mg GT BID [facility] Last Admin: 03/19/20 14:10 Dose: 2.5 mg Documented by: Atorvastatin Calcium (Atorvastatin Calcium 20 Mg Tablet) 20 mg GT QHS [facility] Last Admin: 03/18/20 22:11 Dose: 20 mg Documented by: Calamine/Phenol (Menthol/Lanolin/Calamine/Znox 113 Gm Tube) 1 applic TOPICAL BID SOFIA; Protocol Last Admin: 03/19/20 12:47 Dose: 1 applic Documented by: Gabapentin (Gabapentin 600 Mg Tablet) 600 mg GT QHS [facility] Last Admin: 03/18/20 22:11 Dose: 600 mg Documented by: Gabapentin (Gabapentin 300 Mg Capsule) 300 mg GT DAILY [facility] Last Admin: 03/19/20 14:10 Dose: 300 mg Documented by: Hydromorphone HCl (Hydromorphone 2 Mg Tablet) 2 mg PO Q4H PRN PRN PRN Reason: Pain Score 4-10 Last Admin: 03/19/20 11:56 Dose: 2 mg Documented by: Ceftriaxone Sodium 2 gm/ (Sodium Chloride) 50 mls @ 100 mls/hr IV Q24H [facility] Last Infusion: 03/19/20 13:28 Dose: Infused Documented by: Sodium Chloride () 250 mls @ 15 mls/hr IV .[id number] PRN PRN Reason: Saline Flush Last Admin: 03/18/20 22:21 Dose: 15 mls/hr Documented by: Sodium Chloride () 250 mls @ 15 mls/hr IV .[id number] PRN PRN Reason: Additional IVPB Infusion Insulin Human Lispro (Insulin Lispro 100 Unit/Ml Insuln.Pen) 0 unit SC ACHS [facility]; Protocol Last Admin: 03/19/20 16:51 Dose: Not Given Documented by: L-Arginine/L-Glutamine/Calcium HMB (Jackson (Unflavored) Packet) [facility] Last Admin: 03/19/20 16:50 Dose: 1 packet Documented by: Linezolid (Linezolid 600 Mg Tablet) 600 mg PO BID [facility] Last Admin: 03/19/20 14:12 Dose: 600 mg Documented by: Lorazepam (Lorazepam 2 Mg/Ml Syringe) 2 mg IV Q2H PRN PRN; Protocol PRN Reason: CIWA score > 8 but <15 Lorazepam (Lorazepam 2 Mg/Ml Syringe) 2 mg IV UD PRN; Protocol PRN Reason: CIWA score >/=15. Lorazepam (Lorazepam 1 Mg Tablet) 2 mg GT Q2H PRN PRN; Protocol PRN Reason: CIWA score > 8 but <15 Lorazepam (Lorazepam 1 Mg Tablet) 2 mg GT UD PRN; Protocol PRN Reason: CIWA score >/=15. Magnesium Chloride (Magnesium Chloride 64 Mg Delay Rel.Tablet) 128 mg PO DAILY@0800 [facility] Last Admin: 03/19/20 14:18 Dose: 128 mg Documented by: Ondansetron HCl (Ondansetron 4 Mg/2 Ml Vial) 4 mg IV Q8H PRN PRN PRN Reason: NAUSEA/VOMITING Pantoprazole Sodium (Pantoprazole Sodium 20 Mg Tablet) 20 mg PO BID [facility] Last Admin: 03/19/20 14:10 Dose: 20 mg Documented by: Sodium Chloride (0.9% Saline Lock 10 Ml Syringe) 10 - 40 ml IV UD PRN PRN Reason: SALINE FLUSH Last Admin: 03/19/20 16:50 Dose: 40 ml Documented by: Medical Necessity - Tobacco Use Smoking Status: Current every day smoker Assessment/Plan All Active Problems (Last Reviewed 03/10/20 @ 13:[address] Micky Mauro MD) Sepsis due to pneumonia (Acute) Acute kidney injury (Acute) Hypoxemia (Acute) Elevated troponin (Acute) Elevated INR (Resolved) Skin tear of left elbow without complication (Resolved) 1. Acute kidney injury on chronic kidney disease stage 3. Baseline SCr has been around 1.8 mg/dL. BRIANA is due to ischemic ATN related to septic shock. Renal function is improving. Pt is not oliguric. No need for RETAIL STOCK CLERK today. Current medications are reviewed and are appropriately dosed for the current CrCl. Will continue to follow with you. 2. Hypokalemia. Better today. Replaced as per ICU team since pt has afib. Mg is OK. Recheck K in am. 3. Anemia. Multifactorial. 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 Will hold off on restarting KACEY since it does not work well in the setting of infection. Will reconsider in the future. 4. Septic shock. Pt has LLL pneumonia. 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 5. Acute hypoxic respiratory failure. Off ventilator. Pulmonary management as per shore working supervisor.
[2020-03-19] MEDS: Gabapentin 600 MG Tablet GT (22:16)
[2020-03-19] MEDS: Atorvastatin Calcium 20 MG Tablet GT (22:16)
[2020-03-20] VITALS (18 sets, daily range): BP systolic 94–121; BP diastolic 60–76; PULSE 107–130; RESP 16–25; TEMP 36.3–37; O2SAT 91–98
[2020-03-20 02:01] LABS: Bedside Glucose 91 mg/dL (70-110)
--- NOTE | 2020-03-20 02:18 | NURSING ---
At this assessment, small orange circular pill identified as hydromorphone 2mg was discovered on top of patient's flat sheet in bed. Pt. was observed taking pills out of medicine cup during last medication pass. Unknown which medication pass this pill originated from. Upon assessment, pt. is resting comfortably and has no complaints of pain at this time. Hydromorphone 2mg wasted in accudose and placed in [facility]. Witnessed by Estrella Arteaga.
[2020-03-20] MEDS: Acetaminophen 325 MG Tablet 650 MG PO (05:00)
--- NOTE | 2020-03-20 05:27 | NURSING ---
Administered PRN Tylenol order for back pain 12/13. Patient swallowed first tablet fine. Coughed up second tablet along with phlegm. Discarded intact second tablet and removed additional tablet from ICU accudose. Pt. took tablet with applesauce, no issues for complete PRN Tylenol 650mg (2tabs).
[2020-03-20 05:34] LABS: Absolute Lymphocyte Count 0.39 X10^3/uL (0.83-4.51); Basophil# 0.04 X10^3/uL; Basophil% 0.4 % (0-1); Eosinophil# 0.16 X10^3/uL; Eosinophils% 1.5 % (0-5); Hematocrit 29.6 % (40-54); Hemoglobin 9.1 g/dL (13.0-16.5); Lymphocyte # 0.39 X10^3/ul (4.0); Lymphocyte % 3.7 % (19-41); Mean Corp Hgb Conc 30.7 g/dL (32-36); Mean Corpuscular Hgb 35.7 pg (27.0-32.0); Mean Corpuscular Volume 116.1 fL (80-94); Mean Platelet Vol. 11.3 fl (6.2-12.0); Monocyte# 0.72 X10^3/uL; Monocyte% 6.9 % (0-10); NRBC Flagged by Analyzer 0 % (0-5); Neutrophil # 9.04 X10^3/uL (2.7-7.7); Neutrophil % 86.9 % (47-70); POSITIVE DIFFERENTIAL YES; POSITIVE MORPHOLOGY YES; Platelet Count 202 K/mm3 (150-450); RBC Distribution Width CV 18.6 % (11.6-14.6); RBC Distribution Width SD 79.4 fl (35.1-43.9); Red Blood Count 2.55 M/mm3 (4.6-6.2); White Blood Count 10.4 K/mm3 (4.4-11.0)
[2020-03-20 05:36] LABS: Differential Indicated SCAN CRITERIA MET
[2020-03-20 05:47] LABS: Albumin, Serum 1.7 g/dL (3.2-5.0); BUN 90 mg/dL (7-18); BUN/Creat Ratio 32.3 RATIO (10-20); Calcium,Total 8.3 mg/dL (8.5-10.1); Chloride 110 mmol/L (98-107); Creatinine, Serum 2.79 mg/dL (0.70-1.30); EST Glomerular Filtration Rate 24 mL/min (>60); Est Glom Filt Rate - Afr Amer 29 mL/min (>60); Estimated Creatinine Clearance 22.13 ml/min; Glucose 98 mg/dL (74-106); Magnesium 2.4 mg/dL (1.6-2.6); Phosphorus 3.9 mg/dL (2.5-4.9); Potassium 3.8 mmol/L (3.5-5.1); Sodium Level 141 mmol/L (136-145)
[2020-03-20 05:56] LABS: Differential Comment SCANNED; Hypochromasia 2+; Macrocytosis 3+
--- NOTE | 2020-03-20 07:24 | PN_ITS ---
Subjective: Patient did well overnight. Patient was demanding discharge earlier today because it is my body and I feel good. Patient is still requiring minimal nasal cannula oxygen to maintain saturations. No fevers were noted overnight and patient has remained hemodynamically stable. Patient did have some episodes of tachycardia, but these tended to be associated with agitation. General: Alert, Oriented x3, Cooperative - Intermittently, - - Appears anxious. Sometimes picking at his skin. HEENT: Atraumatic, PERRLA, EOMI, Normocephalic, - - Slight scleral injection without icterus Oral: Moist Mucosa, No Gingival or Mucosal Lesions/ Ulcerations Neck: Supple, No Nodes, Trachea Midline, - - IJ is clean, dry and intact Lungs: No rhonchi, No wheeze, Diminished, Rales, - - Symmetric expansion. Cough with deep inhalation Cardiovascular: Normal S1, Normal S2, No murmurs, No rub noted, No Gallop, Tachycardic Abdomen: Bowel Sounds Present, Soft, Non Tender, Non-Distended, Obese Extremities: No cyanosis, Edema Skin: - - No change from previous Musculoskeletal: No Tenderness to Palpation of Joints or Extremities Lymphatic: No Cervical, Supraclavicular, or Inguinal Adenopathy Neurological: Cranial nerves II-XII grossly intact, Neuro grossly intact, Motor Exam 5/5 strength throughout Psych/Mental Status: Anxious, Impulsive, Restless Vital Signs Temp Pulse Resp BP Pulse Ox 36.8 C 118 H 22 H 116/68 94 03/20/20 06:00 03/20/20 07:00 03/20/20 07:00 03/20/20 07:00 03/20/20 07:00 Oxygen Flow Rate (L/min) 1 Oxygen Delivery Method Nasal Cannula Weight: 109.4 kg Body Mass Index (BMI) 35.3 Intake and Output for Last 24 Hours 03/18/20 03/19/20 03/20/20 23:59 23:59 23:59 Intake Total 2355.58 / 2462.66 1157.40 / 1157.40 150 / 150 Output Total 1155 / 1295 1065 / 1065 250 / 250 Balance 1200.58 / 1167.66 92.40 / 92.40 -100 / -100 Labs (Last 48 Hours) 03/18/20 03/18/20 03/18/20 06:34 12:28 18:35 WBC RBC Hgb Hct MCV MCH MCHC RDW Std Deviation RDW Coeff of Reggie Plt Count MPV Immature Gran % (Auto) Neut % (Auto) Lymph % (Auto) [place] % (Auto) Eos % (Auto) Baso % (Auto) Absolute Neuts (auto) Absolute Lymphs (auto) Nucleated RBC % Differential Comment Hypochromasia Macrocytosis Specimen Type Sample Site pH Bicarbonate Actual Total CO2 Base Excess O2 Saturation O2 % ABG pCO2 ABG pO2 Arturo Test O2 Delivery Device Vent Mode POC PEEP POC Pressure Suppt Sodium Potassium Chloride Carbon Dioxide BUN Creatinine Estim Creat Clear Calc Est GFR (MDRD) Af Amer Est GFR (MDRD) Non-Af BUN/Creatinine Ratio Glucose Calcium Phosphorus Magnesium Albumin POC Glucose 101 168 H 128 H 03/19/20 03/19/20 03/19/20 00:06 05:20 05:54 WBC RBC Hgb Hct MCV MCH MCHC RDW Std Deviation RDW Coeff of Reggie Plt Count MPV Immature Gran % (Auto) Neut % (Auto) Lymph % (Auto) [place] % (Auto) Eos % (Auto) Baso % (Auto) Absolute Neuts (auto) Absolute Lymphs (auto) Nucleated RBC % Differential Comment Hypochromasia Macrocytosis Specimen Type ART Sample Site L Radial pH 7.39 Bicarbonate Actual 20.3 L Total CO2 21 Base Excess -5 L O2 Saturation 91 L O2 % 25 ABG pCO2 33.3 L ABG pO2 61 L Arturo Test Positive O2 Delivery Device Adult Vent Vent Mode CPAP/PS POC PEEP 5 POC Pressure Suppt 5 Sodium 140 Potassium 3.5 Chloride 110 H Carbon Dioxide 24.0 BUN 91 H Creatinine 2.75 H Estim Creat Clear Calc 22.45 Est GFR (MDRD) Af Amer 29 L Est GFR (MDRD) Non-Af 24 L BUN/Creatinine Ratio 33.1 H Glucose 131 H Calcium 7.6 L Phosphorus 2.7 Magnesium 2.3 Albumin 1.5 L POC Glucose 149 H 03/19/20 03/19/20 03/19/20 06:24 13:05 16:50 WBC RBC Hgb Hct MCV MCH MCHC RDW Std Deviation RDW Coeff of Reggie Plt Count MPV Immature Gran % (Auto) Neut % (Auto) Lymph % (Auto) [place] % (Auto) Eos % (Auto) Baso % (Auto) Absolute Neuts (auto) Absolute Lymphs (auto) Nucleated RBC % Differential Comment Hypochromasia Macrocytosis Specimen Type Sample Site pH Bicarbonate Actual Total CO2 Base Excess O2 Saturation O2 % ABG pCO2 ABG pO2 Arturo Test O2 Delivery Device Vent Mode POC PEEP POC Pressure Suppt Sodium Potassium Chloride Carbon Dioxide BUN Creatinine Estim Creat Clear Calc Est GFR (MDRD) Af Amer Est GFR (MDRD) Non-Af BUN/Creatinine Ratio Glucose Calcium Phosphorus Magnesium Albumin POC Glucose 119 H 101 105 03/19/20 03/20/20 03/20/20 22:51 05:20 05:20 WBC 10.4 RBC 2.55 L Hgb 9.1 L Hct 29.6 L MCV 116.1 H MCH 35.7 H MCHC 30.7 L RDW Std Deviation 79.4 H RDW Coeff of Reggie 18.6 H Plt Count 202 MPV 11.3 Immature Gran % (Auto) 0.600 Neut % (Auto) 86.9 H Lymph % (Auto) 3.7 L [place] % (Auto) 6.9 Eos % (Auto) 1.5 Baso % (Auto) 0.4 Absolute Neuts (auto) 9.0 H Absolute Lymphs (auto) 0.39 L Nucleated RBC % 0 Differential Comment SCANNED Hypochromasia 2+ Macrocytosis 3+ Specimen Type Sample Site pH Bicarbonate Actual Total CO2 Base Excess O2 Saturation O2 % ABG pCO2 ABG pO2 Arturo Test O2 Delivery Device Vent Mode POC PEEP POC Pressure Suppt Sodium 141 Potassium 3.8 Chloride 110 H Carbon Dioxide 25.0 BUN 90 H Creatinine 2.79 H Estim Creat Clear Calc 22.13 Est GFR (MDRD) Af Amer 29 L Est GFR (MDRD) Non-Af 24 L BUN/Creatinine Ratio 32.3 H Glucose 98 Calcium 8.3 L Phosphorus 3.9 Magnesium 2.4 Albumin 1.7 L POC Glucose 91 Microbiology 03/14/20 07:50 Blood Culture (Wb) - Right Forearm Blood Culture - Final No growth in 5 days. 03/14/20 08:25 Blood Culture (Wb) - Right Forearm Blood Culture - Final No growth in 5 days. 03/16/20 15:12 Sputum, Induced/Lukens Gram Stain - Final 03/16/20 15:12 Sputum, Induced/Lukens Respiratory Culture - Final Meth. resistant Staph. aureus 03/16/20 09:15 Sputum, Expectorated/Coughed Gram Stain - Final 03/16/20 09:15 Sputum, Expectorated/Coughed Respiratory Culture - Final Meth. resistant Staph. aureus Medical Necessity - Tobacco Use Smoking Status: Current every day smoker Assessment/Plan All Active Problems (Last Reviewed 03/10/20 @ 13:[address] Micky Mauro MD) Sepsis due to pneumonia (Acute) Acute kidney injury (Acute) Hypoxemia (Acute) Elevated troponin (Acute) Elevated INR (Resolved) Skin tear of left elbow without complication (Resolved) RECOMMENDATIONS: 1. Continue p.o. amiodarone 2. Encourage incentive spirometer and wean oxygen as tolerated 3. Okay to discontinue ceftriaxone at 7 days, but will need an additional 9 days of Zyvox 4. Continue to support blood pressure and monitor renal function. Appreciate nephrology input 5. Okay to leave the intensive care unit from my perspective IMPRESSIONS: 1. Septic shock secondary to left lower lobe pneumonia Patient does have a significant left lower lobe infiltrate noted on chest x-ray. Patient has had pulmonary function tests suggesting restriction in the past. Patient has multiple cultures positive including an expectorated and a tracheal aspirate showing staph aureus. Patient improved on ceftriaxone, blood cultures are now showing MRSA. Some concern for a partially treated pneumonia. Patient was placed on Zyvox yesterday and this can likely be continued to complete a total 10-day course. Gram-negative's in the urine and MSSA are likely treated by the ceftriaxone and this can be discontinued at 7 days from my perspective. 2. Acute hypoxic respiratory insufficiency secondary to community-acquired left lower lobe pneumonia Patient with hypercarbic respiratory failure developing shortly after arrival to the intensive care unit. Unclear if this is related to worsening renal function, severe sepsis, lower lobe pneumonia or medications. Patient appears to have responded to intubation appropriately. Careful administration of narcotics. Clinical suspicion for residual oxygen requirements secondary to atelectasis secondary to noncompliance with incentive spirometer 3. Acute kidney injury on CKD stage IV Patient's baseline appears to be about 1.8 and patient has been around 3 throughout the hospitalization. Patient would be at risk for hepatorenal syndrome given history of drinking. Prerenal etiology would also be a consideration. Renal function is stable today. Defer to renal on whether Garcia can be discontinued 4. History of A. fib/flutter with RVR/cardiomyopathy Patient is followed by Dr. Mauro as an outpatient. Patient appears to have responded to p.o. amiodarone. Patient can likely follow-up with cardiology as an outpatient 5. History of DVT/PE on Eliquis Patient is on Eliquis at baseline. Patient does appear to have slightly distended abdomen and may have an element of ascites. We will hold off on a paracentesis for now, but this may need to be evaluated in the future. 6. Delirium with history of alcohol abuse Patient with acute metabolic encephalopathy from possible alcohol withdrawal. Tremor was noted. Patient currently on systemic sedation, so CIWA protocol is not indicated 7. Hypertension/hyperlipidemia/history of non-Hodgkin's lymphoma status post splenectomy Complicates care, management, recovery and prognosis. Discontinue baseline antihypertensive medications. Inpatient E&M: [id number] [facility] L[facility]
[2020-03-20] MEDS: Juven (unflavored) Packet 1 PACKET PO ×2 (08:16→16:43)
[2020-03-20] MEDS: Pantoprazole Sodium 20 MG Tablet PO ×2 (08:17→21:32)
[2020-03-20] MEDS: APIXABAN 2.5 MG TABLET PO ×2 (08:17→22:11)
[2020-03-20] MEDS: Linezolid 600 MG Tablet PO ×2 (08:17→21:32)
[2020-03-20] MEDS: Amiodarone 200 MG Tablet PO (08:17)
[2020-03-20] MEDS: Gabapentin 300 MG Capsule PO (08:18)
[2020-03-20] MEDS: Menthol/Lanolin/Calamine/Znox 113 GM Tube 1 APPLIC TOPICAL ×3 (08:18→21:28)
[2020-03-20] MEDS: HYDROmorphone 2 MG TABLET PO ×2 (08:22→18:37)
[2020-03-20] MEDS: Magnesium Chloride 64 MG Delay Rel.Tablet 128 MG PO (08:22)
[2020-03-20 08:36] LABS: Bedside Glucose 85 mg/dL (70-110)
--- NOTE | 2020-03-20 11:42 | PN_ITS ---
Patient Problems: Active and Suspected Problems (Last Reviewed 03/10/20 @ 13:[address] Micky Mauro MD) Sepsis due to pneumonia (Acute) Acute kidney injury (Acute) Hypoxemia (Acute) Elevated troponin (Acute) Subjective: No medical issues overnight. Behavior continues to be an issue with him demanding to leave even though he is unable to stand up on his own. Vitals/I&O's: Vital Signs Temp Pulse Resp BP Pulse Ox 98.2 F 115 H 22 H 116/68 94 03/20/20 06:00 03/20/20 11:00 03/20/20 07:00 03/20/20 07:00 03/20/20 07:00 Oxygen Flow Rate (L/min) 1 Oxygen Delivery Method Nasal Cannula Weight: 241 lb 2.971 oz Body Mass Index (BMI) 35.3 Intake and Output for Last 24 Hours 03/18/20 03/19/20 03/20/20 23:59 23:59 23:59 Intake Total 2355.58 / 2462.66 1157.40 / 1157.40 650 / 650 Output Total 1155 / 1295 1065 / 1065 250 / 250 Balance 1200.58 / 1167.66 92.40 / 92.40 400 / 400 General: Alert, oriented x3, no acute distress HEENT: Atraumatic, PERRLA, EOMI, normocephalic Oral: Moist Mucosa Neck: Supple, No JVD Lungs: Normal air movement, Diminished, Rhonchi, Wheezes Cardiovascular: Regular Rhythm, Normal S1, Normal S2, No murmurs, Tachycardic Abdomen: Soft, Non Tender, Non-Distended, No Hepato-splenomegaly Extremities: No edema, Capillary Refill Less than 3 Seconds Skin: No rashes, No breakdown Neurological: Neuro grossly intact, sensation intact Psych/Mental Status: Flat affect Microbiology Past 72 Hours 03/14/20 07:50 Blood Culture (Wb) - Right Forearm Blood Culture - Final No growth in 5 days. 03/14/20 08:25 Blood Culture (Wb) - Right Forearm Blood Culture - Final No growth in 5 days. 03/16/20 15:12 Sputum, Induced/Lukens Gram Stain - Final 03/16/20 15:12 Sputum, Induced/Lukens Respiratory Culture - Final Meth. resistant Staph. aureus 03/16/20 09:15 Sputum, Expectorated/Coughed Gram Stain - Final 03/16/20 09:15 Sputum, Expectorated/Coughed Respiratory Culture - Final Meth. resistant Staph. aureus 03/15/20 08:55 Sputum, Expectorated/Coughed Gram Stain - Final 03/15/20 08:55 Sputum, Expectorated/Coughed Respiratory Culture - Final Mixed normal respiratory ignacio. No Streptococcus pneumoniae, beta-hemolytic Streptococcus or Staphylococcus aureus isolated. Laboratory Results 03/19/20 13:05: POC Glucose 101 03/19/20 16:50: POC Glucose 105 03/19/20 22:51: POC Glucose 91 03/20/20 05:20: Sodium 141, Potassium 3.8, Chloride 110 H, Carbon Dioxide 25.0, BUN 90 H, Creatinine 2.79 H, Estim Creat Clear Calc 22.13, Est GFR (MDRD) Af Amer 29 L, Est GFR (MDRD) Non-Af 24 L, BUN/Creatinine Ratio 32.3 H, Glucose 98, Calcium 8.3 L, Phosphorus 3.9, Magnesium 2.4, Albumin 1.7 L 03/20/20 05:20: WBC 10.4, RBC 2.55 L, Hgb 9.1 L, Hct 29.6 L, MCV 116.1 H, MCH 35.7 H, MCHC 30.7 L, RDW Std Deviation 79.4 H, RDW Coeff of Reggie 18.6 H, Plt Count 202, MPV 11.3, Immature Gran % (Auto) 0.600, Neut % (Auto) 86.9 H, Lymph % (Auto) 3.7 L, Mora % (Auto) 6.9, Eos % (Auto) 1.5, Baso % (Auto) 0.4, Absolute Neuts (auto) 9.0 H, Absolute Lymphs (auto) 0.39 L, Nucleated RBC % 0, Differential Comment SCANNED, Hypochromasia 2+, Macrocytosis 3+ 03/20/20 08:14: POC Glucose 85 Current Medications Acetaminophen (Acetaminophen 325 Mg Tablet) 650 mg PO Q6H PRN PRN PRN Reason: Pain Score 1-10/Temp > 100.7 F Last Admin: 03/20/20 05:00 Dose: 650 mg Documented by: Albuterol Sulfate (Albuterol 2.5 Mg/3 Ml Vial.Neb.) 2.5 mg INHALATION Q2H PRN PRN PRN Reason: DYSPNEA Amiodarone HCl (Amiodarone 200 Mg Tablet) 200 mg PO DAILY [facility] Last Admin: 03/20/20 08:17 Dose: 200 mg Documented by: Apixaban (Apixaban 2.5 Mg Tablet) 2.5 mg PO BID [facility] Last Admin: 03/20/20 08:17 Dose: 2.5 mg Documented by: Atorvastatin Calcium (Atorvastatin Calcium 20 Mg Tablet) 20 mg PO QHS [facility] Calamine/Phenol (Menthol/Lanolin/Calamine/Znox 113 Gm Tube) 1 applic TOPICAL TID [facility]; Protocol Gabapentin (Gabapentin 600 Mg Tablet) 600 mg PO QHS [facility] Gabapentin (Gabapentin 300 Mg Capsule) 300 mg PO DAILY [facility] Last Admin: 03/20/20 08:18 Dose: 300 mg Documented by: Hydromorphone HCl (Hydromorphone 2 Mg Tablet) 2 mg PO Q4H PRN PRN PRN Reason: Pain Score 4-10 Last Admin: 03/20/20 08:22 Dose: 2 mg Documented by: Ceftriaxone Sodium 2 gm/ (Sodium Chloride) 50 mls @ 100 mls/hr IV Q24H [facility] Last Infusion: 03/19/20 13:28 Dose: Infused Documented by: Sodium Chloride () 250 mls @ 15 mls/hr IV .[id number] PRN PRN Reason: Saline Flush Last Infusion: 03/19/20 15:02 Dose: Infused Documented by: Sodium Chloride () 250 mls @ 15 mls/hr IV .[id number] PRN PRN Reason: Additional IVPB Infusion Insulin Human Lispro (Insulin Lispro 100 Unit/Ml Insuln.Pen) 0 unit SC [facility]; Protocol Last Admin: 03/20/20 08:15 Dose: Not Given Documented by: L-Arginine/L-Glutamine/Calcium HMB (Jackson (Unflavored) Packet) [facility] Last Admin: 03/20/20 08:16 Dose: 1 packet Documented by: Lidocaine HCl (Lidocaine Jelly 2% Tube 30 Ml) 0.25 tube TOPICAL TID [facility]; Protocol Linezolid (Linezolid 600 Mg Tablet) 600 mg PO BID [facility] Last Admin: 03/20/20 08:17 Dose: 600 mg Documented by: Magnesium Chloride (Magnesium Chloride 64 Mg Delay Rel.Tablet) 128 mg PO DAILY@0800 [facility] Last Admin: 03/20/20 08:22 Dose: 128 mg Documented by: Ondansetron HCl (Ondansetron 4 Mg/2 Ml Vial) 4 mg IV Q8H PRN PRN PRN Reason: NAUSEA/VOMITING Pantoprazole Sodium (Pantoprazole Sodium 20 Mg Tablet) 20 mg PO BID [facility] Last Admin: 03/20/20 08:17 Dose: 20 mg Documented by: Sodium Chloride (0.9% Saline Lock 10 Ml Syringe) 10 - 40 ml IV UD PRN PRN Reason: SALINE FLUSH Last Admin: 03/19/20 16:50 Dose: 40 ml Documented by: STROKE Vital Signs/Narrative: Vital Signs Pulse 03/20/20 11:00 115 H Medical Necessity - Tobacco Use Smoking Status: Current every day smoker Assessment/Plan All Active Problems (Last Reviewed 03/10/20 @ 13:[address] Micky Mauro MD) Sepsis due to pneumonia (Acute) Acute kidney injury (Acute) Hypoxemia (Acute) Elevated troponin (Acute) Elevated INR (Resolved) Skin tear of left elbow without complication (Resolved) 1. 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 History of paroxysmal A. fib/A-flutter/HTN/HLD/indeterminate troponin/nonischemic cardiomyopathy -His troponin was slightly elevated to 0.197 his BNP on admission was 2666, the troponin was likely secondary to his tachycardia as well as sepsis -When able we will need to restart his Lasix -Was started on IV amiodarone and transition to oral amiodarone -In 2019, EF was 55% with pulmonary artery systolic pressure 46 mmHg 3. History of DVT/PE -Stable -Continue with Eliquis 4. Nonhealing surgical wounds of his lower back -We will consult wound care nurse for evaluation -These are secondary to surgical debridement for an abscess following lumbar spine surgery 5. Chronic alcoholic cirrhosis/anemia of chronic disease -Hold his Lasix and his lactulose secondary to his septic shock -His anemia is at baseline likely related to his cirrhosis as well as his chronic kidney disease DVT: Shailesh Inpatient E&M: 25018 Subs Hosp L2
[2020-03-20] MEDS: 0.9% Saline Lock 10 ML Syringe IV (12:30)
[2020-03-20 12:36] LABS: Bedside Glucose 122 mg/dL (70-110)
--- NOTE | 2020-03-20 15:12 | NURSING ---
report called to MS3 RN, to [id number]
[2020-03-20 17:26] LABS: Bedside Glucose 130 mg/dL (70-110)
--- NOTE | 2020-03-20 19:56 | PN.RENAL_ITS ---
Patient Problems: Active and Suspected Problems (Last Reviewed 03/10/20 @ 13:[address] Micky Mauro MD) Sepsis due to pneumonia (Acute) Acute kidney injury (Acute) Hypoxemia (Acute) Elevated troponin (Acute) Subjective: Following for BRIANA on CKD. Pt denies CP, SOB at rest. has SOB with exertion. Appetite is poor. - Physical Exam Vitals/I&O's: Vital Signs Temp Pulse Resp BP Pulse Ox 97.6 F L 113 H 20 H 106/73 98 03/20/20 15:56 03/20/20 16:32 03/20/20 16:00 03/20/20 15:56 03/20/20 16:00 Oxygen Flow Rate (L/min) 1 Oxygen Delivery Method Nasal Cannula Weight: 109.4 kg Body Mass Index (BMI) 35.3 Intake and Output for Last 24 Hours 03/18/20 03/19/20 03/20/20 23:59 23:59 23:59 Intake Total 2355.58 / 2462.66 1157.40 / 1157.40 1060 / 1060 Output Total 1155 / 1295 1065 / 1065 800 / 800 Balance 1200.58 / 1167.66 92.40 / 92.40 260 / 260 General: Alert, Confused HEENT: Atraumatic, PERRLA, EOMI Oral: Moist Mucosa Neck: Supple Lungs: Clear to auscultation Cardiovascular: Normal S1, Normal S2, No murmurs Abdomen: Bowel Sounds Present, Soft, Non Tender Extremities: Edema - 1+ LE Microbiology Past 72 Hours 03/14/20 07:50 Blood Culture (Wb) - Right Forearm Blood Culture - Final No growth in 5 days. 03/14/20 08:25 Blood Culture (Wb) - Right Forearm Blood Culture - Final No growth in 5 days. 03/16/20 15:12 Sputum, Induced/Lukens Gram Stain - Final 03/16/20 15:12 Sputum, Induced/Lukens Respiratory Culture - Final Meth. resistant Staph. aureus 03/16/20 09:15 Sputum, Expectorated/Coughed Gram Stain - Final 03/16/20 09:15 Sputum, Expectorated/Coughed Respiratory Culture - Final Meth. resistant Staph. aureus Laboratory Results 03/19/20 22:51: POC Glucose 91 03/20/20 05:20: Sodium 141, Potassium 3.8, Chloride 110 H, Carbon Dioxide 25.0, BUN 90 H, Creatinine 2.79 H, Estim Creat Clear Calc 22.13, Est GFR (MDRD) Af Amer 29 L, Est GFR (MDRD) Non-Af 24 L, BUN/Creatinine Ratio 32.3 H, Glucose 98, Calcium 8.3 L, Phosphorus 3.9, Magnesium 2.4, Albumin 1.7 L 03/20/20 05:20: WBC 10.4, RBC 2.55 L, Hgb 9.1 L, Hct 29.6 L, MCV 116.1 H, MCH 35.7 H, MCHC 30.7 L, RDW Std Deviation 79.4 H, RDW Coeff of Reggie 18.6 H, Plt Count 202, MPV 11.3, Immature Gran % (Auto) 0.600, Neut % (Auto) 86.9 H, Lymph % (Auto) 3.7 L, [place] % (Auto) 6.9, Eos % (Auto) 1.5, Baso % (Auto) 0.4, Absolute Neuts (auto) 9.0 H, Absolute Lymphs (auto) 0.39 L, Nucleated RBC % 0, Differential Comment SCANNED, Hypochromasia 2+, Macrocytosis 3+ 03/20/20 08:14: POC Glucose 85 03/20/20 12:24: POC Glucose 122 H 03/20/20 16:40: POC Glucose 130 H Current Medications Acetaminophen (Acetaminophen 325 Mg Tablet) 650 mg PO Q6H PRN PRN PRN Reason: Pain Score 1-10/Temp > 100.7 F Last Admin: 03/20/20 05:00 Dose: 650 mg Documented by: Albuterol Sulfate (Albuterol 2.5 Mg/3 Ml Vial.Neb.) 2.5 mg INHALATION Q2H PRN PRN PRN Reason: DYSPNEA Amiodarone HCl (Amiodarone 200 Mg Tablet) 200 mg PO DAILY [facility] Last Admin: 03/20/20 08:17 Dose: 200 mg Documented by: Apixaban (Apixaban 2.5 Mg Tablet) 2.5 mg PO BID [facility] Last Admin: 03/20/20 08:17 Dose: 2.5 mg Documented by: Atorvastatin Calcium (Atorvastatin Calcium 20 Mg Tablet) 20 mg PO QHS [facility] Calamine/Phenol (Menthol/Lanolin/Calamine/Znox 113 Gm Tube) 1 applic TOPICAL TID [facility]; Protocol Last Admin: 03/20/20 15:30 Dose: 1 applicatio Documented by: Gabapentin (Gabapentin 600 Mg Tablet) 600 mg PO QHS [facility] Gabapentin (Gabapentin 300 Mg Capsule) 300 mg PO DAILY [facility] Last Admin: 03/20/20 08:18 Dose: 300 mg Documented by: Hydromorphone HCl (Hydromorphone 2 Mg Tablet) 2 mg PO Q4H PRN PRN PRN Reason: Pain Score 4-10 Last Admin: 03/20/20 18:37 Dose: 2 mg Documented by: Ceftriaxone Sodium 2 gm/ (Sodium Chloride) 50 mls @ 100 mls/hr IV Q24H [facility] Last Admin: 03/20/20 12:29 Dose: 100 mls/hr Documented by: Sodium Chloride () 250 mls @ 15 mls/hr IV .[id number] PRN PRN Reason: Saline Flush Last Infusion: 03/19/20 15:02 Dose: Infused Documented by: Sodium Chloride () 250 mls @ 15 mls/hr IV .[id number] PRN PRN Reason: Additional IVPB Infusion Insulin Human Lispro (Insulin Lispro 100 Unit/Ml Insuln.Pen) 0 unit SC [facility]; Protocol Last Admin: 03/20/20 16:41 Dose: Not Given Documented by: L-Arginine/L-Glutamine/Calcium HMB (Jackson (Unflavored) [facility]) [facility] Last Admin: 03/20/20 16:43 Dose: 1 packet Documented by: Lidocaine HCl (Lidocaine Jelly 2% Tube 30 Ml) 0.25 tube TOPICAL TID [facility]; Protocol Last Admin: 03/20/20 15:30 Dose: 0.25 tube Documented by: Linezolid (Linezolid 600 Mg Tablet) 600 mg PO BID [facility] Last Admin: 03/20/20 08:17 Dose: 600 mg Documented by: Magnesium Chloride (Magnesium Chloride 64 Mg Delay Rel.Tablet) 128 mg PO DAILY@0800 [facility] Last Admin: 03/20/20 08:22 Dose: 128 mg Documented by: Ondansetron HCl (Ondansetron 4 Mg/2 Ml Vial) 4 mg IV Q8H PRN PRN PRN Reason: NAUSEA/VOMITING Pantoprazole Sodium (Pantoprazole Sodium 20 Mg Tablet) 20 mg PO BID [facility] Last Admin: 03/20/20 08:17 Dose: 20 mg Documented by: Sodium Chloride (0.9% Saline Lock 10 Ml Syringe) 10 - 40 ml IV UD PRN PRN Reason: SALINE FLUSH Last Admin: 03/20/20 12:30 Dose: 30 ml Documented by: Medical Necessity - Tobacco Use Smoking Status: Current every day smoker Assessment/Plan All Active Problems (Last Reviewed 03/10/20 @ 13:[address] Micky Mauro MD) Sepsis due to pneumonia (Acute) Acute kidney injury (Acute) Hypoxemia (Acute) Elevated troponin (Acute) Elevated INR (Resolved) Skin tear of left elbow without complication (Resolved) 1. Acute kidney injury on chronic kidney disease stage 3. Baseline SCr has been around 1.8 mg/dL. BRIANA is due to ischemic ATN related to septic shock. Renal function is stable in the past 24 hrs. Pt is not oliguric. No need for PROGRAM SUPPORT SPECIALIST today. Current medications are reviewed and are appropriately dosed for the current CrC l. Will continue to follow with you. 2. Hypokalemia. Resolved. K is better today. Mg is OK. Recheck K in am. 3. Anemia. Multifactorial. 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 Will hold off on restarting KACEY since it does not work well in the setting of infection. Will reconsider in the future. 4. Severe sepsis. Improved. Off pressors. Pt has LLL pneumonia. On antibiotic as per v belt builder and hospitalist. 5. Acute hypoxic respiratory failure. Off ventilator. Pulmonary management as per v belt builder.
[2020-03-20] MEDS: Atorvastatin Calcium 20 MG Tablet PO (21:32)
[2020-03-20] MEDS: Gabapentin 600 MG Tablet PO (21:32)
[2020-03-20 22:20] LABS: Bedside Glucose 106 mg/dL (70-110)
[2020-03-21] VITALS (26 sets, daily range): BP systolic 60–110; BP diastolic 42–78; PULSE 104–132; RESP 14–28; TEMP 36.3–37.3; O2SAT 35–97
[2020-03-21] MEDS: HYDROmorphone 2 MG TABLET PO ×3 (03:04→15:19)
[2020-03-21] MEDS: Menthol/Lanolin/Calamine/Znox 113 GM Tube 1 APPLIC TOPICAL ×2 (05:44→14:20)
[2020-03-21 05:50] LABS: Albumin, Serum 1.8 g/dL (3.2-5.0); BUN 94 mg/dL (7-18); BUN/Creat Ratio 32.9 RATIO (10-20); Calcium,Total 8.2 mg/dL (8.5-10.1); Chloride 111 mmol/L (98-107); Creatinine, Serum 2.86 mg/dL (0.70-1.30); EST Glomerular Filtration Rate 23 mL/min (>60); Est Glom Filt Rate - Afr Amer 28 mL/min (>60); Estimated Creatinine Clearance 21.59 ml/min; Glucose 106 mg/dL (74-106); Phosphorus 4.1 mg/dL (2.5-4.9); Potassium 4.1 mmol/L (3.5-5.1); Sodium Level 141 mmol/L (136-145)
[2020-03-21 06:41] LABS: Bedside Glucose 90 mg/dL (70-110)
--- NOTE | 2020-03-21 08:23 | NURSING ---
wound photo: mid lower back
--- NOTE | 2020-03-21 08:32 | PN_ITS ---
Patient Problems: Active and Suspected Problems (Last Reviewed 03/10/20 @ 13:[address] Micky Mauro MD) Sepsis due to pneumonia (Acute) Acute kidney injury (Acute) Hypoxemia (Acute) Elevated troponin (Acute) Reason for Visit: MRSA pneumonia Subjective: Patient is a 74-year-old gentleman admitted with progressive shortness of breath and assessment of septic shock and acute hypoxic respiratory failure secondary to pneumonia made Objective: GENERAL: Dyspneic at rest HEENT: Atraumatic; EYES; Anicteric, Normal Conjunctiva NECK; supple, normal thyroid, RESPIRATORY: Diminished to auscultation CARDIOVASCULAR: Regular S1 S2, GI: soft, normoactive bowel sounds, : No Renal angle tenderness; EXTREMITIES: No edema, no clubbing, MUSCULOSKELETAL: no muscle waisting NEURO: Awake; no lateralizing signs. SKIN: No Rash PSYCH; Flat affect Vitals/I&O's: Vital Signs Temp Pulse Resp BP Pulse Ox 97.8 F 118 H 20 H 101/62 96 03/21/20 05:41 03/21/20 05:41 03/21/20 05:41 03/21/20 05:41 03/21/20 05:41 Oxygen Flow Rate (L/min) 1 Oxygen Delivery Method Nasal Cannula Weight: 110.7 kg Body Mass Index (BMI) 35.3 Intake and Output for Last 24 Hours 03/19/20 03/20/20 03/21/20 23:59 23:59 23:59 Intake Total 1157.40 / 1157.40 1260 / 1260 200 / 200 Output Total 1065 / 1065 1000 / 1000 175 / 175 Balance 92.40 / 92.40 260 / 260 25 / 25 Microbiology Past 72 Hours 03/14/20 07:50 Blood Culture (Wb) - Right Forearm Blood Culture - Final No growth in 5 days. 03/14/20 08:25 Blood Culture (Wb) - Right Forearm Blood Culture - Final No growth in 5 days. 03/16/20 15:12 Sputum, Induced/Lukens Gram Stain - Final 03/16/20 15:12 Sputum, Induced/Lukens Respiratory Culture - Final Meth. resistant Staph. aureus 03/16/20 09:15 Sputum, Expectorated/Coughed Gram Stain - Final 03/16/20 09:15 Sputum, Expectorated/Coughed Respiratory Culture - Final Meth. resistant Staph. aureus Laboratory Results 03/20/20 08:14: POC Glucose 85 03/20/20 12:24: POC Glucose 122 H 03/20/20 16:40: POC Glucose 130 H 03/20/20 22:11: POC Glucose 106 03/21/20 05:00: Sodium 141, Potassium 4.1, Chloride 111 H, Carbon Dioxide 24.0, BUN 94 H, Creatinine 2.86 H, Estim Creat Clear Calc 21.59, Est GFR (MDRD) Af Amer 28 L, Est GFR (MDRD) Non-Af 23 L, BUN/Creatinine Ratio 32.9 H, Glucose 106, Calcium 8.2 L, Phosphorus 4.1, Albumin 1.8 L 03/21/20 06:37: POC Glucose 90 Current Medications Acetaminophen (Acetaminophen 325 Mg Tablet) 650 mg PO Q6H PRN PRN PRN Reason: Pain Score 1-10/Temp > 100.7 F Last Admin: 03/20/20 05:00 Dose: 650 mg Documented by: Albuterol Sulfate (Albuterol 2.5 Mg/3 Ml Vial.Neb.) 2.5 mg INHALATION Q2H PRN PRN PRN Reason: DYSPNEA Amiodarone HCl (Amiodarone 200 Mg Tablet) 200 mg PO DAILY [facility] Last Admin: 03/20/20 08:17 Dose: 200 mg Documented by: Apixaban (Apixaban 2.5 Mg Tablet) 2.5 mg PO BID [facility] Last Admin: 03/20/20 22:11 Dose: 2.5 mg Documented by: Atorvastatin Calcium (Atorvastatin Calcium 20 Mg Tablet) 20 mg PO QHS [facility] Last Admin: 03/20/20 21:32 Dose: 20 mg Documented by: Calamine/Phenol (Menthol/Lanolin/Calamine/Znox 113 Gm Tube) 1 applic TOPICAL TID [facility]; Protocol Last Admin: 03/21/20 05:44 Dose: 1 applicatio Documented by: Gabapentin (Gabapentin 600 Mg Tablet) 600 mg PO QHS [facility] Last Admin: 03/20/20 21:32 Dose: 600 mg Documented by: Gabapentin (Gabapentin 300 Mg Capsule) 300 mg PO DAILY [facility] Last Admin: 03/20/20 08:18 Dose: 300 mg Documented by: Hydromorphone HCl (Hydromorphone 2 Mg Tablet) 2 mg PO Q4H PRN PRN PRN Reason: Pain Score 4-10 Last Admin: 03/21/20 03:04 Dose: 2 mg Documented by: Ceftriaxone Sodium 2 gm/ (Sodium Chloride) 50 mls @ 100 mls/hr IV Q24H [facility] Last Infusion: 03/20/20 12:59 Dose: Infused Documented by: Sodium Chloride () 250 mls @ 15 mls/hr IV .[id number] PRN PRN Reason: Saline Flush Last Infusion: 03/19/20 15:02 Dose: Infused Documented by: Sodium Chloride () 250 mls @ 15 mls/hr IV .[id number] PRN PRN Reason: Additional IVPB Infusion Insulin Human Lispro (Insulin Lispro 100 Unit/Ml Insuln.Pen) 0 unit SC [facility]; Protocol Last Admin: 03/21/20 06:39 Dose: Not Given Documented by: L-Arginine/L-Glutamine/Calcium HMB ([place] ([facility]flavored) [facility]) [facility] Last Admin: 03/20/20 16:43 Dose: 1 packet Documented by: Lidocaine HCl (Lidocaine Jelly 2% Tube 30 Ml) 0.25 tube TOPICAL TID [facility]; Protocol Last Admin: 03/21/20 05:44 Dose: 0.25 tube Documented by: Linezolid (Linezolid 600 Mg Tablet) 600 mg PO BID [facility] Last Admin: 03/20/20 21:32 Dose: 600 mg Documented by: Magnesium Chloride (Magnesium Chloride 64 Mg Delay Rel.Tablet) 128 mg PO DAILY@0800 [facility] Last Admin: 03/20/20 08:22 Dose: 128 mg Documented by: Ondansetron HCl (Ondansetron 4 Mg/2 Ml Vial) 4 mg IV Q8H PRN PRN PRN Reason: NAUSEA/VOMITING Pantoprazole Sodium (Pantoprazole Sodium 20 Mg Tablet) 20 mg PO BID [facility] Last Admin: 03/20/20 21:32 Dose: 20 mg Documented by: Sodium Chloride (0.9% Saline Lock 10 Ml Syringe) 10 - 40 ml IV UD PRN PRN Reason: SALINE FLUSH Last Admin: 03/20/20 12:30 Dose: 30 ml Documented by: STROKE Vital Signs/Narrative: Vital Signs Temp Pulse Resp BP Pulse Ox 03/21/20 05:41 97.8 F 118 H 20 H 101/62 96 03/21/20 04:46 97.8 F 116 H 22 H 98/78 96 Medical Necessity - Tobacco Use Smoking Status: Current every day smoker Assessment/Plan All Active Problems (Last Reviewed 03/10/20 @ 13:[address] Micky Mauro MD) Sepsis due to pneumonia (Acute) Acute kidney injury (Acute) Hypoxemia (Acute) Elevated troponin (Acute) Elevated INR (Resolved) Skin tear of left elbow without complication (Resolved) Patient is a 74-year-old gentleman admitted with progressive shortness of breath and assessment of septic shock and acute hypoxic respiratory failure secondary to pneumonia made 1. Septic shock -secondary to MRSA pneumonia septic shock now resolved . Acute hypoxic respiratory failure ?Patient was initially managed on the vent extubated on 03/19/2020 3. MRSA pneumonia ?Patient managed with Zyvox as stated above presented with septic shock and acute hypoxic respiratory failure 4. Paroxysmal A. fib ?Rate controlled on systemic anticoagulation with Eliquis rate controlled with amiodarone and beta-blockers 5. History of previous venous thromboembolism (PE/DVT) ?Patient is on Eliquis 6. Dyslipidemia -Patient is on statin therapy, continued at home dose 7. Hypertension - Blood pressure controlled, home medications continued with dose adjustment as needed 8. Non healing surgical wound involving his back ?Consult placed to wound care nurse 9. Morbid obesity - With a BMI of 37 patient was counseled on weight reduction 10. GERD ?On PPI 11. Acute kidney injury superimposed on chronic kidney disease stage III ?This was attributed to ischemic ATN related to septic shock. Nephrology on board following 12. Chronic alcoholic cirrhosis ?Patient is on lactulose and Lasix held in view of patient presenting complaints 13. Anemia - Secondary to chronic disorder monitoring H&H and transfuse if patient becomes symptomatic or hemoglobin falls below 7 14. DVT prophylaxis ?Eliquis 15. Physical deconditioning - Requested for PT OT eval and dialysis social worker to assist with discharge planning Advance planning; did discuss with the patient and family regarding advanced directives as well as CODE STATUS. Did explain the various scenarios involved ( FULL CODE, DNR CCA, DNR CCA with no intubation, and DNR CC and what each meant) patient elected to full code with CPR and intubation if warranted. Order was placed. Time spent on discussion 18 minutes. Inpatient E&M: 95193 Subs Hosp L2 Procedures: 57053 Advncd Care Plan 30 Min
[2020-03-21] MEDS: Juven (unflavored) Packet 1 PACKET PO ×2 (08:34→17:00)
[2020-03-21] MEDS: Pantoprazole Sodium 20 MG Tablet PO ×2 (08:35→22:40)
[2020-03-21] MEDS: Gabapentin 300 MG Capsule PO (08:35)
[2020-03-21] MEDS: APIXABAN 2.5 MG TABLET PO ×2 (08:35→22:40)
[2020-03-21] MEDS: Amiodarone 200 MG Tablet PO ×2 (08:35→23:53)
[2020-03-21] MEDS: Magnesium Chloride 64 MG Delay Rel.Tablet 128 MG PO (08:35)
[2020-03-21] MEDS: Linezolid 600 MG Tablet PO (08:35)
--- NOTE | 2020-03-21 09:34 | PCM.PN.REN ---
Patient Problems: Active and Suspected Problems (Last Reviewed 03/10/20 @ 13:[address] Micky Mauro MD) Sepsis due to pneumonia (Acute) Acute kidney injury (Acute) Hypoxemia (Acute) Elevated troponin (Acute) Subjective: denied worsening breathing. No chest pain. No N/V not eating well - Physical Exam Vitals/I&O's: Vital Signs Temp Pulse Resp BP Pulse Ox 97.6 F L 130 H 22 H 110/61 95 03/21/20 08:25 03/21/20 08:25 03/21/20 08:25 03/21/20 08:25 03/21/20 08:25 Oxygen Flow Rate (L/min) 2 Oxygen Delivery Method Nasal Cannula Weight: 110.7 kg Body Mass Index (BMI) 35.3 Intake and Output for Last 24 Hours 03/19/20 03/20/20 03/21/20 23:59 23:59 23:59 Intake Total 1157.40 / 1157.40 1260 / 1260 200 / 200 Output Total 1065 / 1065 1000 / 1000 175 / 175 Balance 92.40 / 92.40 260 / 260 25 / 25 General: Alert, Oriented x3 HEENT: Atraumatic Oral: Moist Mucosa, No Gingival or Mucosal Lesions/ Ulcerations Neck: Supple, No JVD, Negative Carotid Bruits Lungs: Clear to auscultation, Normal air movement, No rhonchi Cardiovascular: Regular rate, Regular Rhythm, Normal S1, Normal S2 Abdomen: Bowel Sounds Present, Soft, Non Tender Extremities: Edema - +1 edema of LE Musculoskeletal: No Tenderness to Palpation of Joints or Extremities Lymphatic: No Cervical, Supraclavicular, or Inguinal Adenopathy Neurological: Cranial nerves II-XII grossly intact, Neuro grossly intact Psych/Mental Status: Normal Affect Microbiology Past 72 Hours 03/14/20 07:50 Blood Culture (Wb) - Right Forearm Blood Culture - Final No growth in 5 days. 03/14/20 08:25 Blood Culture (Wb) - Right Forearm Blood Culture - Final No growth in 5 days. 03/16/20 15:12 Sputum, Induced/Lukens Gram Stain - Final 03/16/20 15:12 Sputum, Induced/Lukens Respiratory Culture - Final Meth. resistant Staph. aureus 03/16/20 09:15 Sputum, Expectorated/Coughed Gram Stain - Final 03/16/20 09:15 Sputum, Expectorated/Coughed Respiratory Culture - Final Meth. resistant Staph. aureus Laboratory Results 03/20/20 12:24: POC Glucose 122 H 03/20/20 16:40: POC Glucose 130 H 03/20/20 22:11: POC Glucose 106 03/21/20 05:00: Sodium 141, Potassium 4.1, Chloride 111 H, Carbon Dioxide 24.0, BUN 94 H, Creatinine 2.86 H, Estim Creat Clear Calc 21.59, Est GFR (MDRD) Af Amer 28 L, Est GFR (MDRD) Non-Af 23 L, BUN/Creatinine Ratio 32.9 H, Glucose 106, Calcium 8.2 L, Phosphorus 4.1, Albumin 1.8 L 03/21/20 06:37: POC Glucose 90 Current Medications Acetaminophen (Acetaminophen 325 Mg Tablet) 650 mg PO Q6H PRN PRN PRN Reason: Pain Score 1-10/Temp > 100.7 F Last Admin: 03/20/20 05:00 Dose: 650 mg Documented by: Albuterol Sulfate (Albuterol 2.5 Mg/3 Ml Vial.Neb.) 2.5 mg INHALATION Q2H PRN PRN PRN Reason: DYSPNEA Amiodarone HCl (Amiodarone 200 Mg Tablet) 200 mg PO DAILY [facility] Last Admin: 03/21/20 08:35 Dose: 200 mg Documented by: Apixaban (Apixaban 2.5 Mg Tablet) 2.5 mg PO BID [facility] Last Admin: 03/21/20 08:35 Dose: 2.5 mg Documented by: Atorvastatin Calcium (Atorvastatin Calcium 20 Mg Tablet) 20 mg PO QHS [facility] Last Admin: 03/20/20 21:32 Dose: 20 mg Documented by: Calamine/Phenol (Menthol/Lanolin/Calamine/Znox 113 Gm Tube) 1 applic TOPICAL TID [facility]; Protocol Last Admin: 03/21/20 05:44 Dose: 1 applicatio Documented by: Gabapentin (Gabapentin 600 Mg Tablet) 600 mg PO QHS [facility] Last Admin: 03/20/20 21:32 Dose: 600 mg Documented by: Gabapentin (Gabapentin 300 Mg Capsule) 300 mg PO DAILY [facility] Last Admin: 03/21/20 08:35 Dose: 300 mg Documented by: Hydromorphone HCl (Hydromorphone 2 Mg Tablet) 2 mg PO Q4H PRN PRN PRN Reason: Pain Score 4-10 Last Admin: 03/21/20 08:35 Dose: 2 mg Documented by: Ceftriaxone Sodium 2 gm/ (Sodium Chloride) 50 mls @ 100 mls/hr IV Q24H [facility] Last Infusion: 03/20/20 12:59 Dose: Infused Documented by: Sodium Chloride () 250 mls @ 15 mls/hr IV .[id number] PRN PRN Reason: Saline Flush Last Infusion: 03/19/20 15:02 Dose: Infused Documented by: Sodium Chloride () 250 mls @ 15 mls/hr IV .[id number] PRN PRN Reason: Additional IVPB Infusion Insulin Human Lispro (Insulin Lispro 100 Unit/Ml Insuln.Pen) 0 unit SC [facility]; Protocol Last Admin: 03/21/20 06:39 Dose: Not Given Documented by: L-Arginine/L-Glutamine/Calcium HMB ([facility] ([facility]flavored) [facility]) [facility] Last Admin: 03/21/20 08:34 Dose: 1 packet Documented by: Lidocaine HCl (Lidocaine Jelly 2% Tube 30 Ml) 0.25 tube TOPICAL TID [facility]; Protocol Last Admin: 03/21/20 05:44 Dose: 0.25 tube Documented by: Linezolid (Linezolid 600 Mg Tablet) 600 mg PO BID [facility] Last Admin: 03/21/20 08:35 Dose: 600 mg Documented by: Magnesium Chloride (Magnesium Chloride 64 Mg Delay Rel.Tablet) 128 mg PO DAILY@0800 [facility] Last Admin: 03/21/20 08:35 Dose: 128 mg Documented by: Ondansetron HCl (Ondansetron 4 Mg/2 Ml Vial) 4 mg IV Q8H PRN PRN PRN Reason: NAUSEA/VOMITING Pantoprazole Sodium (Pantoprazole Sodium 20 Mg Tablet) 20 mg PO BID [facility] Last Admin: 03/21/20 08:35 Dose: 20 mg Documented by: Sodium Chloride (0.9% Saline Lock 10 Ml Syringe) 10 - 40 ml IV UD PRN PRN Reason: SALINE FLUSH Last Admin: 03/20/20 12:30 Dose: 30 ml Documented by: Medical Necessity - Tobacco Use Smoking Status: Current every day smoker Assessment/Plan All Active Problems (Last Reviewed 03/10/20 @ 13:[address] Micky Mauro MD) Sepsis due to pneumonia (Acute) Acute kidney injury (Acute) Hypoxemia (Acute) Elevated troponin (Acute) Elevated INR (Resolved) Skin tear of left elbow without complication (Resolved) 1. Acute kidney injury on chronic kidney disease stage 3. Baseline SCr has been around 1.8 mg/dL. BRIANA is due to ischemic ATN related to septic shock. Renal function is stable in the past 48 hrs. Pt is not oliguric. No need for ACCOUNT SUPPORT REP today. Ok to remove matthews cath Current medications are reviewed and are appropriately dosed for the current CrCl. Will continue to follow with you. 2. Hypokalemia. Resolved. Mg is OK. Recheck K in am. 3. Anemia. Multifactorial. 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 Will hold off on restarting KACEY since it does not work well in the setting of infection. Will reconsider in the future. 4. Severe sepsis. Improved. Off pressors. Pt has LLL pneumonia. On antibiotic as per hospitalist.
--- NOTE | 2020-03-21 11:24 | CASEMGMT ---
Addendum entered by Michelle Duckworth 03/21/20 13:20: SW provided pt with list of HHC and SNF that accept pt's insurance. Original Note: Social Work Note SW met with pt to continue discussion of discharge plans. Pt states that he feels safe to return home and that he will be able to manage at home. SW asked pt about going to SNF for short term rehabilitation and pt denied. Pt states he would be agreeable to HHC at discharge. SW asked pt about substance abuse hx. Pt denied any substance abuse hx. SW specifically asked about ETOH use/abuse and pt denied. GOLD updated RN CM that pt is requesting HHC at discharge. GOLD and RN CM to continue to follow along for discharge plans. Michelle Duckworth CATTYMAN, MALE IMPERSONATOR
[2020-03-21 11:25] LABS: Bedside Glucose 113 mg/dL (70-110)
[2020-03-21] MEDS: 0.9% Saline Lock 10 ML Syringe IV ×2 (12:30→18:48)
[2020-03-21 17:15] LABS: Bedside Glucose 138 mg/dL (70-110)
[2020-03-21 17:55] LABS: Allen Test Positive; Base Excess -4 mmol/L (-2 to +2); Bicarbonate 24.6 mmol/L (22-26); Blood Gas Specimen Type ART; O2 Delivery Device Cannula; PO2 88 mmHG (75-100); SITE R Radial; SO2 94 % (95-99); Total Carbon Dioxide 27 mmol/L; pCO2 64.7 mmHg (35-45); pH 7.19 (7.35-7.45)
--- NOTE | 2020-03-21 19:22 | NURSING ---
pt transferred down to ICU bed 7 via bed, report given to Inez RN.
[2020-03-21 20:45] LABS: Allen Test Positive; Base Excess -4 mmol/L (-2 to +2); Bicarbonate 22.7 mmol/L (22-26); Blood Gas Specimen Type ART; FI02 25; O2 Delivery Device BiPAP; PEEP 8; PO2 59 mmHG (75-100); PS 18; RR 14; SITE L Radial; SO2 87 % (95-99); Total Carbon Dioxide 24 mmol/L; Vt 500; pCO2 47.8 mmHg (35-45); pH 7.29 (7.35-7.45)
[2020-03-21 21:47] LABS: Probe Check PASS; Specimen Processing Control PASS
[2020-03-21] MEDS: Metoprolol Tartrate 5 MG/5 ML Vial 2.5 MG IV (23:53)
[2020-03-21] MEDS: dexAMETHasone 4 MG/ML Vial 6 MG IV (23:53)
[2020-03-22] VITALS (37 sets, daily range): BP systolic 70–117; BP diastolic 49–83; PULSE 98–139; RESP 12–31; TEMP 36.7–37.3; O2SAT 25–99
[2020-03-22] MEDS: Menthol/Lanolin/Calamine/Znox 113 GM Tube 1 APPLIC TOPICAL ×4 (03:34→20:18)
[2020-03-22] MEDS: Acetaminophen 325 MG Tablet 650 MG PO (05:04)
[2020-03-22 05:17] LABS: Absolute Lymphocyte Count 0.27 X10^3/uL (0.83-4.51); Absolute Neutrophil Count 8.8 X10^3/uL (2.0-7.7); Basophil# 0.02 X10^3/uL; Basophil% 0.2 % (0-1); Differential Indicated SCAN CRITERIA MET; Eosinophil# 0.01 X10^3/uL; Eosinophils% 0.1 % (0-5); Hematocrit 30.3 % (40-54); Hemoglobin 9.4 g/dL (13.0-16.5); Lymphocyte # 0.27 X10^3/ul (4.0); Lymphocyte % 2.9 % (19-41); Mean Corpuscular Hgb 36.3 pg (27.0-32.0); Mean Platelet Vol. 10.9 fl (6.2-12.0); Monocyte# 0.14 X10^3/uL; Monocyte% 1.5 % (0-10); NRBC Flagged by Analyzer 0.2 % (0-5); Neutrophil # 8.83 X10^3/uL (2.7-7.7); Neutrophil % 94.8 % (47-70); POSITIVE DIFFERENTIAL YES; POSITIVE MORPHOLOGY YES; Platelet Count 265 K/mm3 (150-450); RBC Distribution Width CV 18.8 % (11.6-14.6); RBC Distribution Width SD 81.8 fl (35.1-43.9); Red Blood Count 2.59 M/mm3 (4.6-6.2); White Blood Count 9.3 K/mm3 (4.4-11.0)
[2020-03-22 05:21] LABS: Bedside Glucose 79 mg/dL (70-110)
[2020-03-22 05:33] LABS: Anion Gap 9 (5-15); BUN 95 mg/dL (7-18); BUN/Creat Ratio 30.3 RATIO (10-20); Calcium,Total 8.3 mg/dL (8.5-10.1); Chloride 111 mmol/L (98-107); Creatinine, Serum 3.14 mg/dL (0.70-1.30); EST Glomerular Filtration Rate 21 mL/min (>60); Est Glom Filt Rate - Afr Amer 25 mL/min (>60); Estimated Creatinine Clearance 19.67 ml/min; Glucose 102 mg/dL (74-106); Potassium 4.6 mmol/L (3.5-5.1); Sodium Level 142 mmol/L (136-145)
[2020-03-22 06:00] LABS: Differential Comment SCANNED
--- NOTE | 2020-03-22 07:19 | PN_ITS ---
Patient Problems: Active and Suspected Problems (Last Reviewed 03/10/20 @ 13:[address] Micky Mauro MD) Sepsis due to pneumonia (Acute) Acute kidney injury (Acute) Hypoxemia (Acute) Elevated troponin (Acute) Reason for Visit: Acute hypoxic respiratory failure Subjective: Patient is a 74-year-old gentleman admitted with progressive shortness of breath and assessment of septic shock and acute hypoxic respiratory failure secondary to pneumonia made Patient was transferred to the intensive care unit following deterioration in his clinical condition. ABGs obtained demonstrated respiratory acidosis with hypercapnia placed on noninvasive ventilation. Patient was also found to be slightly hypotensive resuscitated with IV fluids. His kidney function has since worsened. Prior to patient being transferred he was tested for COVID-19 which came back positive consult subsequently placed in ID Objective: GENERAL: Dyspneic at rest HEENT: Atraumatic; EYES; Anicteric, Normal Conjunctiva NECK; supple, normal thyroid, RESPIRATORY: Diminished to auscultation CARDIOVASCULAR: Regular S1 S2, GI: soft, normoactive bowel sounds, : No Renal angle tenderness; EXTREMITIES: No edema, no clubbing, MUSCULOSKELETAL: no muscle waisting NEURO: Awake; no lateralizing signs. SKIN: No Rash PSYCH; Flat affect Vitals/I&O's: Vital Signs Temp Pulse Resp BP Pulse Ox 98.7 F 131 H 25 H 114/73 94 03/22/20 06:00 03/22/20 06:00 03/22/20 06:00 03/22/20 06:00 03/22/20 06:00 Oxygen Flow Rate (L/min) 4 Oxygen Delivery Method Nasal Cannula Weight: 109.3 kg Body Mass Index (BMI) 35.3 Intake and Output for Last 24 Hours 03/20/20 03/21/20 03/22/20 23:59 23:59 23:59 Intake Total 1260 / 1260 1371.25 / 1371.25 Output Total 1000 / 1000 375 / 375 70 / 70 Balance 260 / 260 996.25 / 996.25 -70 / -70 Microbiology Past 72 Hours 03/22/20 00:20 Urine Catheter - Garcia Legionella Antigen - Final 03/22/20 00:20 Urine Catheter - Garcia Streptococcus pneumoniae Antigen (M - Final 03/21/20 20:00 Mucosa - Nasopharyngeal - Final 03/14/20 07:50 Blood Culture (Wb) - Right Forearm Blood Culture - Final No growth in 5 days. 03/14/20 08:25 Blood Culture (Wb) - Right Forearm Blood Culture - Final No growth in 5 days. 03/16/20 15:12 Sputum, Induced/Lukens Gram Stain - Final 03/16/20 15:12 Sputum, Induced/Lukens Respiratory Culture - Final Meth. resistant Staph. aureus 03/16/20 09:15 Sputum, Expectorated/Coughed Gram Stain - Final 03/16/20 09:15 Sputum, Expectorated/Coughed Respiratory Culture - Final Meth. resistant Staph. aureus Laboratory Results 03/21/20 11:13: POC Glucose 113 H 03/21/20 16:53: POC Glucose 138 H 03/21/20 17:51: Specimen Type ART, Sample Site R Radial, pH 7.19 L*, Bicarbonate Actual 24.6, Total CO2 27, Base Excess -4 L, O2 Saturation 94 L, ABG pCO2 64.7 H , ABG pO2 88, Arturo Test Positive, O2 Delivery Device Cannula, Liter Flow 3.0 03/21/20 19:50: Lactic Acid 1.0 03/21/20 20:00: COVID-19 ([place]) Positive 03/21/20 20:38: Specimen Type ART, Sample Site L Radial, pH 7.29 L, Bicarbonate Actual 22.7, Total CO2 24, Base Excess -4 L, O2 Saturation 87 L, O2 % 25, ABG pCO2 47.8 H, ABG pO2 59 L, Arturo Test Positive, Respiration Rate 14, O2 Delivery Device BiPAP, Tidal Volume 500, POC PEEP 8, POC Pressure Suppt 18 03/21/20 22:33: POC Glucose 79 03/22/20 04:55: WBC 9.3, RBC 2.59 L, Hgb 9.4 L, Hct 30.3 L, MCV 117.0 H, MCH 36.3 H, MCHC 31.0 L, RDW Std Deviation 81.8 H, RDW Coeff of Reggie 18.8 H, Plt Count 265, MPV 10.9, Immature Gran % (Auto) 0.500, Neut % (Auto) 94.8 H, Lymph % (Auto) 2.9 L, [place] % (Auto) 1.5, Eos % (Auto) 0.1, Baso % (Auto) 0.2, Absolute Neuts (auto) 8.8 H, Absolute Lymphs (auto) 0.27 L, Nucleated RBC % 0.2, Differential Comment SCANNED 03/22/20 04:55: Sodium 142, Potassium 4.6, Chloride 111 H, Carbon Dioxide 22.0, Anion Gap 9, BUN 95 H, Creatinine 3.14 H, Estim Creat Clear Calc 19.67, Est GFR (MDRD) Af Amer 25 L, Est GFR (MDRD) Non-Af 21 L, BUN/Creatinine Ratio 30.3 H, Glucose 102, Calcium 8.3 L Current Medications Acetaminophen (Acetaminophen 325 Mg Tablet) 650 mg PO Q6H PRN PRN PRN Reason: Pain Score 1-10/Temp > 100.7 F Last Admin: 03/22/20 05:04 Dose: 650 mg Documented by: Albuterol Sulfate (Albuterol 2.5 Mg/3 Ml Vial.Neb.) 2.5 mg INHALATION Q2H PRN PRN PRN Reason: DYSPNEA Amiodarone HCl (Amiodarone 200 Mg Tablet) 200 mg PO BID [facility] Last Admin: 03/21/20 23:53 Dose: 200 mg Documented by: Apixaban (Apixaban 2.5 Mg Tablet) 2.5 mg PO BID [facility] Last Admin: 03/21/20 22:40 Dose: 2.5 mg Documented by: Atorvastatin Calcium (Atorvastatin Calcium 20 Mg Tablet) 20 mg PO QHS [facility] Last Admin: 03/21/20 23:00 Dose: Not Given Documented by: Calamine/Phenol (Menthol/Lanolin/Calamine/Znox 113 Gm Tube) 1 applic TOPICAL TID [facility]; Protocol Last Admin: 03/22/20 03:34 Dose: 1 applicatio Documented by: Dexamethasone Sodium Phosphate (Dexamethasone 4 Mg/Ml Vial) 6 mg IV DAILY [facility] Stop: 03/30/20 10:01 Last Admin: 03/21/20 23:53 Dose: 6 mg Documented by: Gabapentin (Gabapentin 600 Mg Tablet) 600 mg PO QHS [facility] Last Admin: 03/21/20 23:00 Dose: Not Given Documented by: Gabapentin (Gabapentin 300 Mg Capsule) 300 mg PO DAILY [facility] Last Admin: 03/21/20 08:35 Dose: 300 mg Documented by: Hydromorphone HCl (Hydromorphone 2 Mg Tablet) 2 mg PO Q4H PRN PRN PRN Reason: Pain Score 4-10 Last Admin: 03/21/20 15:19 Dose: 2 mg Documented by: Ceftriaxone Sodium 2 gm/ (Sodium Chloride) 50 mls @ 100 mls/hr IV Q24H [facility] Last Infusion: 03/21/20 13:00 Dose: Infused Documented by: Sodium Chloride () 250 mls @ 15 mls/hr IV .[id number] PRN PRN Reason: Saline Flush Last Infusion: 03/21/20 14:23 Dose: 0 mls/hr Documented by: Sodium Chloride () 250 mls @ 15 mls/hr IV .[id number] PRN PRN Reason: Additional IVPB Infusion Insulin Human Lispro (Insulin Lispro 100 Unit/Ml Insuln.Pen) 0 unit SC [facility]; Protocol Last Admin: 03/22/20 07:07 Dose: Not Given Documented by: L-Arginine/L-Glutamine/Calcium HMB ([place] (Unflavored) Packet) [facility] Last Admin: 03/21/20 17:00 Dose: 1 packet Documented by: Lidocaine HCl (Lidocaine Jelly 2% Tube 30 Ml) 0.25 tube TOPICAL TID [facility]; Protocol Last Admin: 03/21/20 23:30 Dose: 0.25 tube Documented by: Linezolid (Linezolid 600 Mg Tablet) 600 mg PO BID [facility] Last Admin: 03/21/20 23:00 Dose: Not Given Documented by: Magnesium Chloride (Magnesium Chloride 64 Mg Delay Rel.Tablet) 128 mg PO DAILY@0800 [facility] Last Admin: 03/21/20 08:35 Dose: 128 mg Documented by: Ondansetron HCl (Ondansetron 4 Mg/2 Ml Vial) 4 mg IV Q8H PRN PRN PRN Reason: NAUSEA/VOMITING Pantoprazole Sodium (Pantoprazole Sodium 20 Mg Tablet) 20 mg PO BID [facility] Last Admin: 03/21/20 22:40 Dose: 20 mg Documented by: Sodium Chloride (0.9% Saline Lock 10 Ml Syringe) 10 - 40 ml IV UD PRN PRN Reason: SALINE FLUSH Last Admin: 03/21/20 18:48 Dose: 10 ml Documented by: STROKE Vital Signs/Narrative: Vital Signs Temp Pulse Resp BP Pulse Ox 03/22/20 06:00 98.7 F 131 H 25 H 114/73 94 03/22/20 05:53 94 03/22/20 05:00 98.9 F 137 H 24 H 109/82 H 92 03/22/20 04:00 98.8 F 128 H 23 H 99/83 H 25 Medical Necessity - Tobacco Use Smoking Status: Current every day smoker Assessment/Plan All Active Problems (Last Reviewed 03/10/20 @ 13:[address] Micky Mauro MD) Sepsis due to pneumonia (Acute) Acute kidney injury (Acute) Hypoxemia (Acute) Elevated troponin (Acute) Elevated INR (Resolved) Skin tear of left elbow without complication (Resolved) Patient is a 74-year-old gentleman admitted with progressive shortness of breath and assessment of septic shock and acute hypoxic respiratory failure secondary to pneumonia made 1. Septic shock -secondary to MRSA pneumonia septic shock now resolved -03/22/2020; repeat lactic acid camee back wnl 2. Acute hypoxic hypercapnic respiratory failure ?Patient was initially managed on the vent extubated on 03/19/2020 -03/22/2020 Patient was transferred to the intensive care unit following deterioration in his clinical condition. ABGs obtained demonstrated respiratory acidosis with hypercapnia placed on noninvasive ventilation?BiPAP. Patient was also found to be slightly hypotensive resuscitated with IV fluids. His kidney function has since worsened 3. MRSA pneumonia ?Patient managed with Zyvox as stated above presented with septic shock and acute hypoxic respiratory failure 4. COVID-19 pneumonitis ?Diagnosed after almost a week of hospital stay. Consult placed to ID. Patient started on Decadron 5. Paroxysmal A. fib ?Rate controlled on systemic anticoagulation with Eliquis rate controlled with amiodarone and beta-blockers 6. Dyslipidemia -Patient is on statin therapy, continued at home dose 7. Hypertension - Blood pressure controlled, home medications continued with dose adjustment as needed 8. Non healing surgical wound involving his back ?Consult placed to wound care nurse 9. Morbid obesity - With a BMI of 37 patient was counseled on weight reduction 10. GERD ?On PPI 11. Acute kidney injury superimposed on chronic kidney disease stage III ?This was attributed to ischemic ATN related to septic shock. Nephrology on board following 12. Chronic alcoholic cirrhosis ?Patient is on lactulose and Lasix held in view of patient presenting complaints 13. Anemia - Secondary to chronic disorder monitoring H&H and transfuse if patient becomes symptomatic or hemoglobin falls below 7 14. 5. History of previous venous thromboembolism (PE/DVT) ?Patient is on Eliquis 15. Physical deconditioning - Requested for PT OT eval and aids social worker to assist with discharge planning 16. Chronic pain syndrome ?Patient was high doses of dilaudid; doses adjusted 17. DVT prophylaxis ?Eliquis Inpatient E&M: [id number] [facility] L3
[2020-03-22 07:36] LABS: Bedside Glucose 107 mg/dL (70-110)
[2020-03-22] MEDS: dexAMETHasone 4 MG/ML Vial 6 MG IV (08:30)
[2020-03-22] MEDS: Juven (unflavored) Packet 1 PACKET PO ×2 (08:30→16:51)
[2020-03-22] MEDS: Magnesium Chloride 64 MG Delay Rel.Tablet 128 MG PO (08:30)
[2020-03-22] MEDS: APIXABAN 2.5 MG TABLET PO ×2 (08:30→20:02)
[2020-03-22] MEDS: Amiodarone 200 MG Tablet PO ×2 (08:30→20:02)
[2020-03-22] MEDS: 0.9% Saline Lock 10 ML Syringe IV ×3 (08:30→23:36)
[2020-03-22] MEDS: Pantoprazole Sodium 20 MG Tablet PO ×2 (08:30→20:02)
[2020-03-22] MEDS: Gabapentin 300 MG Capsule PO (08:30)
--- NOTE | 2020-03-22 08:30 | PCM.PN.INT ---
Subjective: The patient was seen and examined at the bedside this morning. Events from the last 24 hours have been reviewed. The patient is currently afebrile, hemodynamically stable and maintaining appropriate oxygen saturations on 4 L/min via nasal cannula. The patient was initially transferred out of the intensive care unit on Saturday after being extubated over the weekend. Last evening, the patient apparently developed some somnolence and hemodynamic instability, which prompted his transfer back to the medical intensive care unit. An arterial blood gas had been obtained on 3 L/min and revealed a pH of 7.19 with a corresponding PCO2 of 65 and PO2 of 88. The patient was placed on BiPAP therapy with subsequent improvement in his overall clinical state. Objective: The patient's most recent lab work, culture data and imaging studies have all been personally reviewed. Urine culture dated March 14 was positive for Enterococcus. Sputum culture dated March 16 was positive for MRSA. Coronavirus PCR on March 14 was negative. However, follow-up coronavirus PCR on March 21 was positive. General: Alert, No apparent distress HEENT: Atraumatic, Normocephalic Oral: No Gingival or Mucosal Lesions/ Ulcerations Neck: Supple, No Nodes, Trachea Midline Lungs: Diminished Cardiovascular: Normal S1, Normal S2, Irregular Rate, Tachycardic Abdomen: Bowel Sounds Present, Soft, Non Tender, Obese Extremities: No clubbing, No cyanosis, Edema Skin: - - No significant change from previous Musculoskeletal: No Muscle Wasting Lymphatic: No Cervical, Supraclavicular, or Inguinal Adenopathy Neurological: Neuro grossly intact Psych/Mental Status: Anxious, Impulsive Vital Signs Temp Pulse Resp BP Pulse Ox 98.9 F 122 H 20 H 110/64 92 03/22/20 07:00 03/22/20 07:00 03/22/20 07:00 03/22/20 07:00 03/22/20 07:00 Oxygen Flow Rate (L/min) 4 Oxygen Delivery Method Nasal Cannula Weight: 240 lb 15.444 oz Body Mass Index (BMI) 35.3 Intake and Output for Last 24 Hours 03/20/20 03/21/20 03/22/20 23:59 23:59 23:59 Intake Total 1260 / 1260 1371.25 / 1371.25 Output Total 1000 / 1000 375 / 375 245 / 245 Balance 260 / 260 996.25 / 996.25 -245 / -245 Labs (Last 48 Hours) 03/20/20 03/20/20 03/20/20 08:14 12:24 16:40 WBC RBC Hgb Hct MCV MCH MCHC RDW Std Deviation RDW Coeff of Reggie Plt Count MPV Immature Gran % (Auto) Neut % (Auto) Lymph % (Auto) [place] % (Auto) Eos % (Auto) Baso % (Auto) Absolute Neuts (auto) Absolute Lymphs (auto) Nucleated RBC % Differential Comment Specimen Type Sample Site pH Bicarbonate Actual Total CO2 Base Excess O2 Saturation O2 % ABG pCO2 ABG pO2 Arturo Test Respiration Rate O2 Delivery Device Liter Flow Tidal Volume POC PEEP POC Pressure Suppt Sodium Potassium Chloride Carbon Dioxide Anion Gap BUN Creatinine Estim Creat Clear Calc Est GFR (MDRD) Af Amer Est GFR (MDRD) Non-Af BUN/Creatinine Ratio Glucose Lactic Acid Calcium Phosphorus Albumin COVID-19 ([place]) POC Glucose 85 122 H 130 H 03/20/20 03/21/20 03/21/20 22:11 05:00 06:37 WBC RBC Hgb Hct MCV MCH MCHC RDW Std Deviation RDW Coeff of Reggie Plt Count MPV Immature Gran % (Auto) Neut % (Auto) Lymph % (Auto) [place] % (Auto) Eos % (Auto) Baso % (Auto) Absolute Neuts (auto) Absolute Lymphs (auto) Nucleated RBC % Differential Comment Specimen Type Sample Site pH Bicarbonate Actual Total CO2 Base Excess O2 Saturation O2 % ABG pCO2 ABG pO2 Arturo Test Respiration Rate O2 Delivery Device Liter Flow Tidal Volume POC PEEP POC Pressure Suppt Sodium 141 Potassium 4.1 Chloride 111 H Carbon Dioxide 24.0 Anion Gap BUN 94 H Creatinine 2.86 H Estim Creat Clear Calc 21.59 Est GFR (MDRD) Af Amer 28 L Est GFR (MDRD) Non-Af 23 L BUN/Creatinine Ratio 32.9 H Glucose 106 Lactic Acid Calcium 8.2 L Phosphorus 4.1 Albumin 1.8 L COVID-19 ([place]) POC Glucose 106 90 03/21/20 03/21/20 03/21/20 11:13 16:53 17:51 WBC RBC Hgb Hct MCV MCH MCHC RDW Std Deviation RDW Coeff of Reggie Plt Count MPV Immature Gran % (Auto) Neut % (Auto) Lymph % (Auto) [place] % (Auto) Eos % (Auto) Baso % (Auto) Absolute Neuts (auto) Absolute Lymphs (auto) Nucleated RBC % Differential Comment Specimen Type ART Sample Site R Radial pH 7.19 L* Bicarbonate Actual 24.6 Total CO2 27 Base Excess -4 L O2 Saturation 94 L O2 % ABG pCO2 64.7 H ABG pO2 88 Arturo Test Positive Respiration Rate O2 Delivery Device Cannula Liter Flow 3.0 Tidal Volume POC PEEP POC Pressure Suppt Sodium Potassium Chloride Carbon Dioxide Anion Gap BUN Creatinine Estim Creat Clear Calc Est GFR (MDRD) Af Amer Est GFR (MDRD) Non-Af BUN/Creatinine Ratio Glucose Lactic Acid Calcium Phosphorus Albumin COVID-19 ([place]) POC Glucose 113 H 138 H 03/21/20 03/21/20 03/21/20 19:50 20:00 20:38 WBC RBC Hgb Hct MCV MCH MCHC RDW Std Deviation RDW Coeff of Reggie Plt Count MPV Immature Gran % (Auto) Neut % (Auto) Lymph % (Auto) [place] % (Auto) Eos % (Auto) Baso % (Auto) Absolute Neuts (auto) Absolute Lymphs (auto) Nucleated RBC % Differential Comment Specimen Type ART Sample Site L Radial pH 7.29 L Bicarbonate Actual 22.7 Total CO2 24 Base Excess -4 L O2 Saturation 87 L O2 % 25 ABG pCO2 47.8 H ABG pO2 59 L Arturo Test Positive Respiration Rate 14 O2 Delivery Device BiPAP Liter Flow Tidal Volume 500 POC PEEP 8 POC Pressure Suppt 18 Sodium Potassium Chloride Carbon Dioxide Anion Gap BUN Creatinine Estim Creat Clear Calc Est GFR (MDRD) Af Amer Est GFR (MDRD) Non-Af BUN/Creatinine Ratio Glucose Lactic Acid 1.0 Calcium Phosphorus Albumin COVID-19 ([place]) Positive POC Glucose 03/21/20 03/22/20 03/22/20 22:33 04:55 04:55 WBC 9.3 RBC 2.59 L Hgb 9.4 L Hct 30.3 L MCV 117.0 H MCH 36.3 H MCHC 31.0 L RDW Std Deviation 81.8 H RDW Coeff of Reggie 18.8 H Plt Count 265 MPV 10.9 Immature Gran % (Auto) 0.500 Neut % (Auto) 94.8 H Lymph % (Auto) 2.9 L [place] % (Auto) 1.5 Eos % (Auto) 0.1 Baso % (Auto) 0.2 Absolute Neuts (auto) 8.8 H Absolute Lymphs (auto) 0.27 L Nucleated RBC % 0.2 Differential Comment SCANNED Specimen Type Sample Site pH Bicarbonate Actual Total CO2 Base Excess O2 Saturation O2 % ABG pCO2 ABG pO2 Arturo Test Respiration Rate O2 Delivery Device Liter Flow Tidal Volume POC PEEP POC Pressure Suppt Sodium 142 Potassium 4.6 Chloride 111 H Carbon Dioxide 22.0 Anion Gap 9 BUN 95 H Creatinine 3.14 H Estim Creat Clear Calc 19.67 Est GFR (MDRD) Af Amer 25 L Est GFR (MDRD) Non-Af 21 L BUN/Creatinine Ratio 30.3 H Glucose 102 Lactic Acid Calcium 8.3 L Phosphorus Albumin COVID-19 ([place]) POC Glucose 79 03/22/20 06:55 WBC RBC Hgb Hct MCV MCH MCHC RDW Std Deviation RDW Coeff of Reggie Plt Count MPV Immature Gran % (Auto) Neut % (Auto) Lymph % (Auto) [place] % (Auto) Eos % (Auto) Baso % (Auto) Absolute Neuts (auto) Absolute Lymphs (auto) Nucleated RBC % Differential Comment Specimen Type Sample Site pH Bicarbonate Actual Total CO2 Base Excess O2 Saturation O2 % ABG pCO2 ABG pO2 Arturo Test Respiration Rate O2 Delivery Device Liter Flow Tidal Volume POC PEEP POC Pressure Suppt Sodium Potassium Chloride Carbon Dioxide Anion Gap BUN Creatinine Estim Creat Clear Calc Est GFR (MDRD) Af Amer Est GFR (MDRD) Non-Af BUN/Creatinine Ratio Glucose Lactic Acid Calcium Phosphorus Albumin COVID-19 ([place]) POC Glucose 107 Microbiology 03/22/20 00:20 Urine Catheter - Garcia Legionella Antigen - Final 03/22/20 00:20 Urine Catheter - Garcia Streptococcus pneumoniae Antigen (M - Final 03/21/20 20:00 Mucosa - Nasopharyngeal - Final Clinical Impression(s) from Imaging Studies Chest X-Ray 03/14/20 09:05 IMPRESSION: Lingular consolidation. Radiographic follow-up is recommended. Electronically Signed: Shen Echeverria, at 9:46 EST , Service support , Chest X-Ray 03/15/20 15:40 IMPRESSION: 1. No change in lingular pneumonia. 2. Poor inspiration with some bibasilar atelectasis per Electronically Signed: Jorgito Enamorado MD at 16:15 EST Tel , Service support , Chest X-Ray 03/16/20 01:49 IMPRESSION: Ill-defined subpleural groundglass opacities are seen more prominent in the lung lingula, may represent atypical pneumonia or viral pneumonia (COVID-19 ?). Electronically Signed: Dereck Rojo, at 3:31 EST Tel , Service support , Chest X-Ray 03/16/20 14:33 IMPRESSION: Interval placement of right internal jugular deep venous line with tip of the catheter overlying the right brachiocephalic vein and no pneumothorax. Electronically Signed: Jorgito Enamorado MD at 15:05 EST Tel , Service support , Chest X-Ray 03/16/20 15:03 IMPRESSION: 1. Interval placement of endotracheal tube with the tip approximately 2 cm above the osmany. 2. Interval placement of nasogastric tube with the tip below the diaphragm. 3. Right internal jugular deep venous line which is unchanged. 4. No change in left lower lobe pneumonia per Electronically Signed: Jorgito Enamorado MD at 15:34 EST Tel , Service support , Medical Necessity - Tobacco Use Smoking Status: Current every day smoker Assessment/Plan All Active Problems (Last Reviewed 03/10/20 @ 13:[address] Micky Mauro MD) Sepsis due to pneumonia (Acute) Acute kidney injury (Acute) Hypoxemia (Acute) Elevated troponin (Acute) COVID-19 (Acute) Elevated INR (Resolved) Skin tear of left elbow without complication (Resolved) RECOMMENDATIONS: 1. Resume beta-cyndi and continue amiodarone. 2. Infectious diseases consultation is pending. Continue antimicrobials accordingly. 3. Continue Decadron 6 mg daily. 4. Cautious use of Dilaudid. 5. Continue AVAPS with naps and nightly, given history of MARY JANE. 6. Continue Eliquis. 7. Wean supplemental oxygen to maintain saturations at or above 90%. 8. Encourage incentive spirometer use and mobilize patient as tolerated. IMPRESSIONS: 1. Acute hypoxemic respiratory failure Likely multifactorial in etiology with community-acquired and COVID-19 pneumonia contributing, along with atrial fibrillation with rapid ventricular rate. The patient is currently on appropriate antimicrobials, with infectious disease consultation pending. Continue Decadron as ordered. The patient would not be a remdesivir candidate given his underlying renal function. Continue supplemental oxygen to maintain saturations at or above 90%. Recommend BiPAP/AVAPS, at a minimum, with sleep. 2. Septic shock secondary to left lower lobe pneumonia The patient is currently hemodynamically stable without vasopressor requirement. Continue current supportive measures as noted above. 3. Acute kidney injury on CKD stage IV Clinical concern for ischemic ATN in the setting of septic shock. Nephrology is currently following. Continue current supportive measures. 4. History of A. fib/flutter with RVR/cardiomyopathy The patient is followed by Dr. Mauro as an outpatient. Recommend the patient receive his beta-cyndi dose today and be continued on amiodarone. If he remains uncontrolled from a rate perspective, recommend cardiology consultation. 5. History of DVT/PE on Eliquis Continue Eliquis per outpatient medication regimen. 6. Hypertension/hyperlipidemia/history of non-Hodgkin's lymphoma status post splenectomy Complicates care, management, recovery and prognosis. Physical therapy on hold due to tenuous respiratory status. This note was generated with [employer] dictation software. It may contain incorrect words, spelling, and punctuation that were not noted in checking the note before signing. Inpatient E&M: 112[address] [facility] Hosp L3
--- NOTE | 2020-03-22 09:12 | PN.RENAL_ITS ---
Patient Problems: Active and Suspected Problems (Last Reviewed 03/10/20 @ 13:[address] Micky Mauro MD) Sepsis due to pneumonia (Acute) Acute kidney injury (Acute) Hypoxemia (Acute) Elevated troponin (Acute) Subjective: Patient was moved to ICU for hypoxia and low BP. received IVF and BP is better tested positive for COVID-19 Not seen or examined today to limit exposure to COVID-19 and to preserve PPE - Physical Exam Vitals/I&O's: Vital Signs Temp Pulse Resp BP Pulse Ox 98.9 F 122 H 20 H 110/64 92 03/22/20 07:00 03/22/20 07:00 03/22/20 07:00 03/22/20 07:00 03/22/20 07:00 Oxygen Flow Rate (L/min) 4 Oxygen Delivery Method Nasal Cannula Weight: 109.3 kg Body Mass Index (BMI) 35.3 Intake and Output for Last 24 Hours 03/20/20 03/21/20 03/22/20 23:59 23:59 23:59 Intake Total 1260 / 1260 1371.25 / 1371.25 Output Total 1000 / 1000 375 / 375 245 / 245 Balance 260 / 260 996.25 / 996.25 -245 / -245 Comment: No physical exam was performed due to COVID-19 infection Microbiology Past 72 Hours 03/22/20 00:20 Urine Catheter - Garcia Legionella Antigen - Final 03/22/20 00:20 Urine Catheter - Garcia Streptococcus pneumoniae Antigen (M - Final 03/21/20 20:00 Mucosa - Nasopharyngeal - Final 03/14/20 07:50 Blood Culture (Wb) - Right Forearm Blood Culture - Final No growth in 5 days. 03/14/20 08:25 Blood Culture (Wb) - Right Forearm Blood Culture - Final No growth in 5 days. 03/16/20 15:12 Sputum, Induced/[place] Gram Stain - Final 03/16/20 15:12 Sputum, Induced/[place] Respiratory Culture - Final Meth. resistant Staph. aureus 03/16/20 09:15 Sputum, Expectorated/Coughed Gram Stain - Final 03/16/20 09:15 Sputum, Expectorated/Coughed Respiratory Culture - Final Meth. resistant Staph. aureus Laboratory Results 03/21/20 11:13: POC Glucose 113 H 03/21/20 16:53: POC Glucose 138 H 03/21/20 17:51: Specimen Type ART, Sample Site R Radial, pH 7.19 L*, Bicarbonate Actual 24.6, Total CO2 27, Base Excess -4 L, O2 Saturation 94 L, ABG pCO2 64.7 H , ABG pO2 88, Arturo Test Positive, O2 Delivery Device Cannula, Liter Flow 3.0 03/21/20 19:50: Lactic Acid 1.0 03/21/20 20:00: COVID-19 ([place]) Positive 03/21/20 20:38: Specimen Type ART, Sample Site L Radial, pH 7.29 L, Bicarbonate Actual 22.7, Total CO2 24, Base Excess -4 L, O2 Saturation 87 L, O2 % 25, ABG pCO2 47.8 H, ABG pO2 59 L, Arturo Test Positive, Respiration Rate 14, O2 Delivery Device BiPAP, Tidal Volume 500, POC PEEP 8, POC Pressure Suppt 18 03/21/20 22:33: POC Glucose 79 03/22/20 04:55: WBC 9.3, RBC 2.59 L, Hgb 9.4 L, Hct 30.3 L, MCV 117.0 H, MCH 36.3 H, MCHC 31.0 L, RDW Std Deviation 81.8 H, RDW Coeff of Reggie 18.8 H, Plt Count 265, MPV 10.9, Immature Gran % (Auto) 0.500, Neut % (Auto) 94.8 H, Lymph % (Auto) 2.9 L, [place] % (Auto) 1.5, Eos % (Auto) 0.1, Baso % (Auto) 0.2, Absolute Neuts (auto) 8.8 H, Absolute Lymphs (auto) 0.27 L, Nucleated RBC % 0.2, Differential Comment SCANNED 03/22/20 04:55: Sodium 142, Potassium 4.6, Chloride 111 H, Carbon Dioxide 22.0, Anion Gap 9, BUN 95 H, Creatinine 3.14 H, Estim Creat Clear Calc 19.67, Est GFR (MDRD) Af Amer 25 L, Est GFR (MDRD) Non-Af 21 L, BUN/Creatinine Ratio 30.3 H, Glucose 102, Calcium 8.3 L 03/22/20 06:55: POC Glucose 107 Current Medications Acetaminophen (Acetaminophen 325 Mg Tablet) 650 mg PO Q6H PRN PRN PRN Reason: Pain Score 1-10/Temp > 100.7 F Last Admin: 03/22/20 05:04 Dose: 650 mg Documented by: Albuterol Sulfate (Albuterol 2.5 Mg/3 Ml Vial.Neb.) 2.5 mg INHALATION Q2H PRN PRN PRN Reason: DYSPNEA Amiodarone HCl (Amiodarone 200 Mg Tablet) 200 mg PO BID [facility] Last Admin: 03/21/20 23:53 Dose: 200 mg Documented by: Apixaban (Apixaban 2.5 Mg Tablet) 2.5 mg PO BID [facility] Last Admin: 03/21/20 22:40 Dose: 2.5 mg Documented by: Atorvastatin Calcium (Atorvastatin Calcium 20 Mg Tablet) 20 mg PO QHS [facility] Last Admin: 03/21/20 23:00 Dose: Not Given Documented by: Calamine/Phenol (Menthol/Lanolin/Calamine/Znox 113 Gm Tube) 1 applic TOPICAL TID [facility]; Protocol Last Admin: 03/22/20 06:50 Dose: 1 applicatio Documented by: Dexamethasone Sodium Phosphate (Dexamethasone 4 Mg/Ml Vial) 6 mg IV DAILY [facility] Stop: 03/30/20 10:01 Last Admin: 03/21/20 23:53 Dose: 6 mg Documented by: Gabapentin (Gabapentin 600 Mg Tablet) 600 mg PO QHS [facility] Last Admin: 03/21/20 23:00 Dose: Not Given Documented by: Gabapentin (Gabapentin 300 Mg Capsule) 300 mg PO DAILY [facility] Last Admin: 03/21/20 08:35 Dose: 300 mg Documented by: Hydromorphone HCl (Hydromorphone 2 Mg Tablet) 2 mg PO Q4H PRN PRN PRN Reason: Pain Score 4-10 Last Admin: 03/21/20 15:19 Dose: 2 mg Documented by: Ceftriaxone Sodium 2 gm/ (Sodium Chloride) 50 mls @ 100 mls/hr IV Q24H [facility] Last Infusion: 03/21/20 13:00 Dose: Infused Documented by: Sodium Chloride () 250 mls @ 15 mls/hr IV .[id number] PRN PRN Reason: Saline Flush Last Infusion: 03/21/20 14:23 Dose: 0 mls/hr Documented by: Sodium Chloride () 250 mls @ 15 mls/hr IV .[id number] PRN PRN Reason: Additional IVPB Infusion Insulin Human Lispro (Insulin Lispro 100 Unit/Ml Insuln.Pen) 0 unit SC ACHS [facility]; Protocol Last Admin: 03/22/20 07:07 Dose: Not Given Documented by: L-Arginine/L-Glutamine/Calcium HMB ([place] ([facility]flavored) Packet) [facility] Last Admin: 03/21/20 17:00 Dose: 1 packet Documented by: Lidocaine HCl (Lidocaine Jelly 2% Tube 30 Ml) 0.25 tube TOPICAL TID [facility]; Protocol Last Admin: 03/22/20 06:50 Dose: 0.25 tube Documented by: Linezolid (Linezolid 600 Mg Tablet) 600 mg PO BID [facility] Last Admin: 03/21/20 23:00 Dose: Not Given Documented by: Magnesium Chloride (Magnesium Chloride 64 Mg Delay Rel.Tablet) 128 mg PO DAILY@0800 [facility] Last Admin: 03/21/20 08:35 Dose: 128 mg Documented by: Ondansetron HCl (Ondansetron 4 Mg/2 Ml Vial) 4 mg IV Q8H PRN PRN PRN Reason: NAUSEA/VOMITING Pantoprazole Sodium (Pantoprazole Sodium 20 Mg Tablet) 20 mg PO BID [facility] Last Admin: 03/21/20 22:40 Dose: 20 mg Documented by: Sodium Chloride (0.9% Saline Lock 10 Ml Syringe) 10 - 40 ml IV UD PRN PRN Reason: SALINE FLUSH Last Admin: 03/21/20 18:48 Dose: 10 ml Documented by: Medical Necessity - Tobacco Use Smoking Status: Current every day smoker Assessment/Plan All Active Problems (Last Reviewed 03/10/20 @ 13:[address] Micky Mauro MD) Sepsis due to pneumonia (Acute) Acute kidney injury (Acute) Hypoxemia (Acute) Elevated troponin (Acute) Elevated INR (Resolved) Skin tear of left elbow without complication (Resolved) 1. Acute kidney injury on chronic kidney disease stage 3. Baseline SCr has been around 1.8 mg/dL. BRIANA is due to ischemic ATN related to septic shock. Cr increased in the last 24 hrs likely from hemodynamic instability No need for SOLE RUFFER today. Keep MAP >65 Monitor RFP 2. Hypokalemia. Resolved. Mg is OK. Recheck K in am. 3. Anemia. Multifactorial. 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 Will hold off on restarting KACEY since it does not work well in the setting of infection. Will reconsider in the future. 4. Severe sepsis. Improved. Off pressors. Pt has LLL pneumonia and UTI. On antibiotic as per hospitalist. 5- COVID-19 infection with hypoxia. as per ID/ICU
--- NOTE | 2020-03-22 10:06 | NURSING ---
received report from Rut HARDY assuming care of patient at this point
[2020-03-22] MEDS: Linezolid 600 MG Tablet PO ×2 (11:36→20:02)
[2020-03-22] MEDS: Metoprolol(XL)Succ 50 MG Tablet PO (11:36)
[2020-03-22] MEDS: Insulin Lispro 100 UNIT/ML INSULN.PEN SC ×2 (11:39→16:50)
[2020-03-22] MEDS: HYDROmorphone 2 MG TABLET PO ×2 (11:40→20:02)
--- NOTE | 2020-03-22 11:50 | CASEMGMT ---
SW participated in ICU rounds, pt now has COVID. SW/CM will continue to follow for appropriate discharge plan. KIM Mendosa
[2020-03-22 11:55] LABS: Bedside Glucose 158 mg/dL (70-110)
--- NOTE | 2020-03-22 16:16 | PCM.HP.ID ---
Problem List (1) COVID-19 Status: Acute Reason for Consult: covid Consulted by: Dr. Reed History of Present Illness: The patient is a 74 year old M with CKD, presented 03/14 with several days of fever, cough, dyspnea, and brown sputum. Found to have septic shock, intubated, seen by pulm and neph. Sputum with MRSA, initial covid was neg. Extubated 3-4 days ago, moved out of icu, now with worsening mental status, oxygenation. Reports some aches, diarrhea prior to admit. Reports has been healthy. No sick contacts. Now back in icu, dex started due to repeat covid (+). Full ROS performed and neg except as noted above. - Medical History Past Medical History (Chronic Problems): Chronic Problems (Last Reviewed 03/10/20 @ 13:[address] Micky Mauro MD) Paroxysmal atrial fibrillation (Chronic) Right ventricular dilation (Chronic) Right ventricular systolic dysfunction (Chronic) Non-ischemic cardiomyopathy (Chronic) PSVT (paroxysmal supraventricular tachycardia) (Chronic) Chronic combined systolic and diastolic CHF (congestive heart failure) (Chronic) Secondary pulmonary arterial hypertension (Chronic) Right bundle branch block (RBBB) (Chronic) Essential (primary) hypertension (Chronic) Hyperlipidemia (Chronic) Hepatic cirrhosis (Chronic) History of non-Hodgkin's lymphoma (Chronic) Hypergammaglobulinemia (Chronic) Iron deficiency anemia (Chronic) Plasma cell dyscrasia (Chronic) EtOH dependence (Chronic) Non-healing surgical wound (Chronic) Open wound of lumbar region with complication (Chronic) h/o osteomyelitis and is chronic nonhealing surgical wound s/p lumbar decompression surgery Recurrent deep vein thrombosis (DVT) (Chronic) Allergies/Adverse Reactions: Allergies chlorthalidone Allergy (Verified 03/14/20 07:40) Unknown ramipril [From Altace] Allergy (Verified 03/14/20 07:40) Unknown sulfamethoxazole [From Bactrim] Allergy (Verified 03/14/20 07:40) Other trazodone Allergy (Verified 03/14/20 07:40) Unknown trimethoprim [From Bactrim] Allergy (Verified 03/14/20 07:40) Other prednisone Adverse Reaction (Verified 03/14/20 07:40) Swelling only in big doses Home Medications: Ambulatory Orders Medication Instructions Recorded Folic Acid 1 mg PO DAILY@0800 02/05/16 Magnesium Oxide [Magnesium] 400 mg PO DAILY@0800 02/05/16 Vit C/E/Zn/Coppr/Lutein/Zeaxan 1 ea PO DAILY 07/04/17 [Preservision Areds 2 Softgel] Gabapentin 600 mg PO QHS 02/28/19 Apixaban [Eliquis] 2.5 mg PO BID 04/07/19 Gabapentin [Neurontin] 300 mg PO DAILY 04/21/19 hydromorphone 4 mg tablet 4 - 8 mg PO Q4H PRN tab 05/21/19 atorvastatin 20 mg tablet 20 mg PO QHS #90 tab 08/05/19 multivitamin 1 tab PO DAILY 03/10/20 testosterone cypionate 100 mg/mL 100 mg IM Q2W ml 03/10/20 intramuscular oil Cholecalciferol (VIT D3) [Vitamin 1,000 unit PO DAILY 03/14/20 D] Furosemide 60 mg PO BID 03/14/20 Lactulose [Chronulac, Cephulac] 20 gm PO BID PRN PRN 03/14/20 Metoprolol Succinate 50 mg PO DAILY 03/14/20 - Social History SMOKING STATUS:: Former smoker Vital Signs Temp Pulse Resp BP Pulse Ox 99.1 F 120 H 25 H 101/67 97 03/22/20 16:00 03/22/20 16:00 03/22/20 16:00 03/22/20 16:00 03/22/20 16:00 Oxygen Flow Rate (L/min) 10 Oxygen Delivery Method Nasal Cannula Weight: 109.3 kg Body Mass Index (BMI) 35.3 Microbiology Past 72 Hours 03/22/20 00:20 Legionella Antigen - Final Urine Catheter - Garcia Streptococcus pneumoniae Antigen (M - Final 03/21/20 20:00 - Final Mucosa - Nasopharyngeal 03/14/20 07:50 Blood Culture - Final Blood Culture (Wb) - Right Forearm No growth in 5 days. Laboratory Tests Past 24 Hrs 03/21/20 03/21/20 03/21/20 17:51 19:50 20:00 WBC RBC Hgb Hct MCV MCH MCHC RDW Std Deviation RDW Coeff of Reggie Plt Count MPV Immature Gran % (Auto) Neut % (Auto) Lymph % (Auto) [place] % (Auto) Eos % (Auto) Baso % (Auto) Absolute Neuts (auto) Absolute Lymphs (auto) Nucleated RBC % Differential Comment Specimen Type ART Sample Site R Radial pH 7.19 L* Bicarbonate Actual 24.6 Total CO2 27 Base Excess -4 L O2 Saturation 94 L O2 % ABG pCO2 64.7 H ABG pO2 88 Arturo Test Positive Respiration Rate O2 Delivery Device Cannula Liter Flow 3.0 Tidal Volume POC PEEP POC Pressure Suppt Sodium Potassium Chloride Carbon Dioxide Anion Gap BUN Creatinine Estim Creat Clear Calc Est GFR (MDRD) Af Amer Est GFR (MDRD) Non-Af BUN/Creatinine Ratio Glucose Lactic Acid 1.0 Calcium COVID-19 ([place]) Positive Blood Type 03/21/20 03/22/20 03/22/20 20:38 04:55 04:55 WBC 9.3 RBC 2.59 L Hgb 9.4 L Hct 30.3 L MCV 117.0 H MCH 36.3 H MCHC 31.0 L RDW Std Deviation 81.8 H RDW Coeff of Reggie 18.8 H Plt Count 265 MPV 10.9 Immature Gran % (Auto) 0.500 Neut % (Auto) 94.8 H Lymph % (Auto) 2.9 L [place] % (Auto) 1.5 Eos % (Auto) 0.1 Baso % (Auto) 0.2 Absolute Neuts (auto) 8.8 H Absolute Lymphs (auto) 0.27 L Nucleated RBC % 0.2 Differential Comment SCANNED Specimen Type ART Sample Site L Radial pH 7.29 L Bicarbonate Actual 22.7 Total CO2 24 Base Excess -4 L O2 Saturation 87 L O2 % 25 ABG pCO2 47.8 H ABG pO2 59 L Arturo Test Positive Respiration Rate 14 O2 Delivery Device BiPAP Liter Flow Tidal Volume 500 POC PEEP 8 POC Pressure Suppt 18 Sodium 142 Potassium 4.6 Chloride 111 H Carbon Dioxide 22.0 Anion Gap 9 BUN 95 H Creatinine 3.14 H Estim Creat Clear Calc 19.67 Est GFR (MDRD) Af Amer 25 L Est GFR (MDRD) Non-Af 21 L BUN/Creatinine Ratio 30.3 H Glucose 102 Lactic Acid Calcium 8.3 L COVID-19 ([place]) Blood Type 03/22/20 15:25 WBC RBC Hgb Hct MCV MCH MCHC RDW Std Deviation RDW Coeff of Reggie Plt Count MPV Immature Gran % (Auto) Neut % (Auto) Lymph % (Auto) [place] % (Auto) Eos % (Auto) Baso % (Auto) Absolute Neuts (auto) Absolute Lymphs (auto) Nucleated RBC % Differential Comment Specimen Type Sample Site pH Bicarbonate Actual Total CO2 Base Excess O2 Saturation O2 % ABG pCO2 ABG pO2 Arturo Test Respiration Rate O2 Delivery Device Liter Flow Tidal Volume POC PEEP POC Pressure Suppt Sodium Potassium Chloride Carbon Dioxide Anion Gap BUN Creatinine Estim Creat Clear Calc Est GFR (MDRD) Af Amer Est GFR (MDRD) Non-Af BUN/Creatinine Ratio Glucose Lactic Acid Calcium COVID-19 ([place]) Blood Type Pending - Other Studies Radiology: [] reviewed Other Studies: [] Route of nutrition/ use of supplements: [] Nutritional Intake: [] IV Site: [] Garcia Catheter: [] - Physical Exam General: Alert, Oriented x3, Cooperative, - - ill appearing HEENT: Atraumatic, PERRLA, EOMI Neck: Supple, No Nodes Lungs: Diminished, Rhonchi Cardiovascular: Regular rate, Regular Rhythm Abdomen: Soft, Non Tender, Non-Distended Extremities: No edema Skin: No rashes IV Site: Peripheral, without redness Musculoskeletal: No Tenderness to Palpation of Joints or Extremities Neurological: Cranial nerves II-XII grossly intact - Assessment/Plan Antibiotics: [] Assessment/Plan: [] Active and Suspected Problems (Last Reviewed 03/10/20 @ 13:[address] Micky Mauro MD) Sepsis due to pneumonia (Acute) Acute kidney injury (Acute) Hypoxemia (Acute) Elevated troponin (Acute) covid with hypoxia and MRSA pneumonia - moved back to icu. Repeat covid (+), not clear if this represents ongoing infection since prior to presentation, hospital onset, or still incubating disease. Employee health has been contacted and contact tracing being done. On dex. Not a candidate for remdesivir due to GFR. Reviewed EUA and risk/benefit of plasma with him, and we agree to start it. Cont linezolid and ceftriaxone. Will get sputum cx. Will follow, thank you, d/w Dr. Mendes and Dr. Reed
[2020-03-22 17:15] LABS: Bedside Glucose 150 mg/dL (70-110)
[2020-03-22] MEDS: Atorvastatin Calcium 20 MG Tablet PO (20:01)
[2020-03-22] MEDS: Gabapentin 600 MG Tablet PO (20:02)
--- NOTE | 2020-03-22 23:20 | PCM.HOSP.N ---
Hospitalist Note Patient with increased lethargy, difficult to arouse. Patient earlier with concern for retention as had been on high flow during the day, placed on BIPAP, also noted increased HR with atrial fibrillation with RVR, increased amiodarone from daily to BID with improvement, RR improved on BIPAP, 94% but now more lethargic. ABG requested. Maintaining airway. Will review ABG with RT once resulted. If airway concerns may necessitate re-intubation.
[2020-03-23] VITALS (53 sets, daily range): BP systolic 64–130; BP diastolic 42–83; PULSE 89–120; RESP 14–28; TEMP 36–37; O2SAT 92–100
[2020-03-23 00:01] LABS: Base Excess -6 mmol/L (-2 to +2); Bicarbonate 21.8 mmol/L (22-26); Blood Gas Specimen Type ART; FI02 30; O2 Delivery Device BiPAP; PEEP 10; PO2 77 mmHG (75-100); PS 6; RR 12; SITE L Radial; SO2 92 % (95-99); Total Carbon Dioxide 23 mmol/L; pCO2 52.6 mmHg (35-45); pH 7.23 (7.35-7.45)
[2020-03-23] MEDS: 0.9% Saline Lock 10 ML Syringe IV ×3 (03:36→20:31)
[2020-03-23 03:57] LABS: Absolute Lymphocyte Count 0.32 X10^3/uL (0.83-4.51); Absolute Neutrophil Count 9.4 X10^3/uL (2.0-7.7); Basophil# 0.01 X10^3/uL; Basophil% 0.1 % (0-1); Differential Indicated SCAN CRITERIA MET; Hematocrit 31.7 % (40-54); Hemoglobin 9.6 g/dL (13.0-16.5); Lymphocyte # 0.32 X10^3/ul (4.0); Lymphocyte % 3.2 % (19-41); Mean Corp Hgb Conc 30.3 g/dL (32-36); Mean Corpuscular Volume 118.7 fL (80-94); Mean Platelet Vol. 10.9 fl (6.2-12.0); Monocyte# 0.35 X10^3/uL; Monocyte% 3.4 % (0-10); NRBC Flagged by Analyzer 0.2 % (0-5); Neutrophil % 92.6 % (47-70); POSITIVE DIFFERENTIAL YES; POSITIVE MORPHOLOGY YES; Platelet Count 322 K/mm3 (150-450); RBC Distribution Width SD 82.9 fl (35.1-43.9); Red Blood Count 2.67 M/mm3 (4.6-6.2); White Blood Count 10.2 K/mm3 (4.4-11.0)
[2020-03-23 04:14] LABS: Differential Comment SCANNED; Target Cells RARE
[2020-03-23 04:16] LABS: ALB/GLOB Ratio 0.4 RATIO (0.9-2.4); AST(SGOT) 29 U/L (15-37); Alanine Aminotransfer ALT/SGPT 46 U/L (16-61); Albumin, Serum 2.1 g/dL (3.2-5.0); Alkaline Phosphatase 106 U/L (45-117); Anion Gap 6 (5-15); BUN 107 mg/dL (7-18); BUN/Creat Ratio 29.6 RATIO (10-20); Calcium,Total 8.6 mg/dL (8.5-10.1); Chloride 111 mmol/L (98-107); Creatinine, Serum 3.62 mg/dL (0.70-1.30); EST Glomerular Filtration Rate 18 mL/min (>60); Est Glom Filt Rate - Afr Amer 21 mL/min (>60); Estimated Creatinine Clearance 17.06 ml/min; Globulin 5.8 g/dL (2.2-4.2); Glucose 134 mg/dL (74-106); Potassium 4.8 mmol/L (3.5-5.1); Protein, Total 7.9 g/dL (6.4-8.2); Sodium Level 141 mmol/L (136-145)
[2020-03-23] MEDS: Menthol/Lanolin/Calamine/Znox 113 GM Tube 1 APPLIC TOPICAL ×3 (04:43→22:35)
--- NOTE | 2020-03-23 06:57 | PN_ITS ---
Subjective: The patient was seen and examined at the bedside this morning. Events from the last 24 hours have been reviewed. Overnight, per report from nursing staff, upon receiving his p.o. Dilaudid dose last night the patient experienced a drop in blood pressures, for which he received IV fluid boluses. The patient was also noted to have decreased mentation as well. His hemodynamics did not respond to the fluid challenge and the patient was therefore placed on Levophed at 5 mcg/min. He did receive convalescent plasma yesterday as well. The patient's BUN and creatinine have worsened today. He is currently documented to be overall net +14 L for the hospital admission. Objective: The patient's most recent lab work, culture data and imaging studies have all been personally reviewed. Urine culture dated March 14 was positive for Enterococcus. Sputum culture dated March 16 was positive for MRSA. Coronavirus PCR on March 14 was negative. However, follow-up coronavirus PCR on March 21 was positive. General: Alert, No apparent distress, - - Currently sitting upright in bed with BiPAP in place. HEENT: Atraumatic, Normocephalic Oral: Dry Mucosa Neck: Supple, No Nodes, Trachea Midline, - - Central venous catheter in place Lungs: Diminished, Tachypneic Cardiovascular: Normal S1, Normal S2, Tachycardic Abdomen: Bowel Sounds Present, Soft, Non Tender, Obese Extremities: No clubbing, No cyanosis, Edema Musculoskeletal: No Muscle Wasting Lymphatic: No Cervical, Supraclavicular, or Inguinal Adenopathy Neurological: Neuro grossly intact Psych/Mental Status: Normal Affect Vital Signs Temp Pulse Resp BP Pulse Ox 97.6 F L 100 16 115/69 97 03/23/20 06:00 03/23/20 06:00 03/23/20 06:00 03/23/20 06:00 03/23/20 06:00 Oxygen Flow Rate (L/min) 7 Oxygen Delivery Method Bi-pap Weight: 242 lb 15.19 oz Body Mass Index (BMI) 35.3 Intake and Output for Last 24 Hours 03/21/20 03/22/20 03/23/20 23:59 23:59 23:59 Intake Total 1371.25 / 1371.25 640 / 640 1162.62 / 1162.62 Output Total 375 / 375 720 / 720 75 / 75 Balance 996.25 / 996.25 -80 / -80 1087.62 / 1087.62 Labs (Last 48 Hours) 03/21/20 03/21/20 03/21/20 11:13 16:53 17:51 WBC RBC Hgb Hct MCV MCH MCHC RDW Std Deviation RDW Coeff of Reggie Plt Count MPV Immature Gran % (Auto) Neut % (Auto) Lymph % (Auto) [place] % (Auto) Eos % (Auto) Baso % (Auto) Absolute Neuts (auto) Absolute Lymphs (auto) Nucleated RBC % Differential Comment Target Cells Specimen Type ART Sample Site R Radial pH 7.19 L* Bicarbonate Actual 24.6 Total CO2 27 Base Excess -4 L O2 Saturation 94 L O2 % ABG pCO2 64.7 H ABG pO2 88 Arturo Test Positive Respiration Rate O2 Delivery Device Cannula Liter Flow 3.0 Tidal Volume POC PEEP POC Pressure Suppt Sodium Potassium Chloride Carbon Dioxide Anion Gap BUN Creatinine Estim Creat Clear Calc Est GFR (MDRD) Af Amer Est GFR (MDRD) Non-Af BUN/Creatinine Ratio Glucose Lactic Acid Calcium Total Bilirubin AST ALT Alkaline Phosphatase Total Protein Albumin Globulin Albumin/Globulin Ratio COVID-19 ([place]) POC Glucose 113 H 138 H Blood Type 03/21/20 03/21/20 03/21/20 19:50 20:00 20:38 WBC RBC Hgb Hct MCV MCH MCHC RDW Std Deviation RDW Coeff of Reggie Plt Count MPV Immature Gran % (Auto) Neut % (Auto) Lymph % (Auto) [place] % (Auto) Eos % (Auto) Baso % (Auto) Absolute Neuts (auto) Absolute Lymphs (auto) Nucleated RBC % Differential Comment Target Cells Specimen Type ART Sample Site L Radial pH 7.29 L Bicarbonate Actual 22.7 Total CO2 24 Base Excess -4 L O2 Saturation 87 L O2 % 25 ABG pCO2 47.8 H ABG pO2 59 L Arturo Test Positive Respiration Rate 14 O2 Delivery Device BiPAP Liter Flow Tidal Volume 500 POC PEEP 8 POC Pressure Suppt 18 Sodium Potassium Chloride Carbon Dioxide Anion Gap BUN Creatinine Estim Creat Clear Calc Est GFR (MDRD) Af Amer Est GFR (MDRD) Non-Af BUN/Creatinine Ratio Glucose Lactic Acid 1.0 Calcium Total Bilirubin AST ALT Alkaline Phosphatase Total Protein Albumin Globulin Albumin/Globulin Ratio COVID-19 ([place]) Positive POC Glucose Blood Type 03/21/20 03/22/20 03/22/20 22:33 04:55 04:55 WBC 9.3 RBC 2.59 L Hgb 9.4 L Hct 30.3 L MCV 117.0 H MCH 36.3 H MCHC 31.0 L RDW Std Deviation 81.8 H RDW Coeff of Reggie 18.8 H Plt Count 265 MPV 10.9 Immature Gran % (Auto) 0.500 Neut % (Auto) 94.8 H Lymph % (Auto) 2.9 L [place] % (Auto) 1.5 Eos % (Auto) 0.1 Baso % (Auto) 0.2 Absolute Neuts (auto) 8.8 H Absolute Lymphs (auto) 0.27 L Nucleated RBC % 0.2 Differential Comment SCANNED Target Cells Specimen Type Sample Site pH Bicarbonate Actual Total CO2 Base Excess O2 Saturation O2 % ABG pCO2 ABG pO2 Arturo Test Respiration Rate O2 Delivery Device Liter Flow Tidal Volume POC PEEP POC Pressure Suppt Sodium 142 Potassium 4.6 Chloride 111 H Carbon Dioxide 22.0 Anion Gap 9 BUN 95 H Creatinine 3.14 H Estim Creat Clear Calc 19.67 Est GFR (MDRD) Af Amer 25 L Est GFR (MDRD) Non-Af 21 L BUN/Creatinine Ratio 30.3 H Glucose 102 Lactic Acid Calcium 8.3 L Total Bilirubin AST ALT Alkaline Phosphatase Total Protein Albumin Globulin Albumin/Globulin Ratio COVID-19 ([place]) POC Glucose 79 Blood Type 03/22/20 03/22/20 03/22/20 06:55 11:25 15:25 WBC RBC Hgb Hct MCV MCH MCHC RDW Std Deviation RDW Coeff of Reggie Plt Count MPV Immature Gran % (Auto) Neut % (Auto) Lymph % (Auto) [place] % (Auto) Eos % (Auto) Baso % (Auto) Absolute Neuts (auto) Absolute Lymphs (auto) Nucleated RBC % Differential Comment Target Cells Specimen Type Sample Site pH Bicarbonate Actual Total CO2 Base Excess O2 Saturation O2 % ABG pCO2 ABG pO2 Arturo Test Respiration Rate O2 Delivery Device Liter Flow Tidal Volume POC PEEP POC Pressure Suppt Sodium Potassium Chloride Carbon Dioxide Anion Gap BUN Creatinine Estim Creat Clear Calc Est GFR (MDRD) Af Amer Est GFR (MDRD) Non-Af BUN/Creatinine Ratio Glucose Lactic Acid Calcium Total Bilirubin AST ALT Alkaline Phosphatase Total Protein Albumin Globulin Albumin/Globulin Ratio COVID-19 ([place]) POC Glucose 107 158 H Blood Type O POSITIVE 03/22/20 03/22/20 03/23/20 16:48 23:54 03:30 WBC 10.2 RBC 2.67 L Hgb 9.6 L Hct 31.7 L MCV 118.7 H MCH 36.0 H MCHC 30.3 L RDW Std Deviation 82.9 H RDW Coeff of Reggie 19.0 H Plt Count 322 MPV 10.9 Immature Gran % (Auto) 0.700 Neut % (Auto) 92.6 H Lymph % (Auto) 3.2 L [place] % (Auto) 3.4 Eos % (Auto) 0.0 Baso % (Auto) 0.1 Absolute Neuts (auto) 9.4 H Absolute Lymphs (auto) 0.32 L Nucleated RBC % 0.2 Differential Comment SCANNED Target Cells RARE Specimen Type ART Sample Site L Radial pH 7.23 L Bicarbonate Actual 21.8 L Total CO2 23 Base Excess -6 L O2 Saturation 92 L O2 % 30 ABG pCO2 52.6 H ABG pO2 77 Arturo Test Respiration Rate 12 O2 Delivery Device BiPAP Liter Flow Tidal Volume POC PEEP 10 POC Pressure Suppt 6 Sodium Potassium Chloride Carbon Dioxide Anion Gap BUN Creatinine Estim Creat Clear Calc Est GFR (MDRD) Af Amer Est GFR (MDRD) Non-Af BUN/Creatinine Ratio Glucose Lactic Acid Calcium Total Bilirubin AST ALT Alkaline Phosphatase Total Protein Albumin Globulin Albumin/Globulin Ratio COVID-19 ([place]) POC Glucose 150 H Blood Type 03/23/20 03:30 WBC RBC Hgb Hct MCV MCH MCHC RDW Std Deviation RDW Coeff of Reggie Plt Count MPV Immature Gran % (Auto) Neut % (Auto) Lymph % (Auto) [place] % (Auto) Eos % (Auto) Baso % (Auto) Absolute Neuts (auto) Absolute Lymphs (auto) Nucleated RBC % Differential Comment Target Cells Specimen Type Sample Site pH Bicarbonate Actual Total CO2 Base Excess O2 Saturation O2 % ABG pCO2 ABG pO2 Arturo Test Respiration Rate O2 Delivery Device Liter Flow Tidal Volume POC PEEP POC Pressure Suppt Sodium 141 Potassium 4.8 Chloride 111 H Carbon Dioxide 24.0 Anion Gap 6 BUN 107 H* Creatinine 3.62 H Estim Creat Clear Calc 17.06 Est GFR (MDRD) Af Amer 21 L Est GFR (MDRD) Non-Af 18 L BUN/Creatinine Ratio 29.6 H Glucose 134 H Lactic Acid Calcium 8.6 Total Bilirubin 0.30 AST 29 ALT 46 Alkaline Phosphatase 106 Total Protein 7.9 Albumin 2.1 L Globulin 5.8 H Albumin/Globulin Ratio 0.4 L COVID-19 ([place]) POC Glucose Blood Type Microbiology 03/22/20 00:20 Urine Catheter - Garcia Legionella Antigen - Final 03/22/20 00:20 Urine Catheter - Garcia Streptococcus pneumoniae Antigen (M - Final 03/21/20 20:00 Mucosa - Nasopharyngeal - Final Clinical Impression(s) from Imaging Studies Chest X-Ray 03/14/20 09:05 IMPRESSION: Lingular consolidation. Radiographic follow-up is recommended. Electronically Signed: Shen Echeverria, at 9:46 EST , Service support , Chest X-Ray 03/15/20 15:40 IMPRESSION: 1. No change in lingular pneumonia. 2. Poor inspiration with some bibasilar atelectasis per Electronically Signed: Jorgito Enamorado MD at 16:15 EST Tel , Service support , Chest X-Ray 03/16/20 01:49 IMPRESSION: Ill-defined subpleural groundglass opacities are seen more prominent in the lung lingula, may represent atypical pneumonia or viral pneumonia (COVID-19 ?). Electronically Signed: Dereck Rojo, at 3:31 EST Tel , Service support , Chest X-Ray 03/16/20 14:33 IMPRESSION: Interval placement of right internal jugular deep venous line with tip of the catheter overlying the right brachiocephalic vein and no pneumothorax. Electronically Signed: Jorgito Enamorado MD at 15:05 EST Tel , Service support , Chest X-Ray 03/16/20 15:03 IMPRESSION: 1. Interval placement of endotracheal tube with the tip approximately 2 cm above the osmany. 2. Interval placement of nasogastric tube with the tip below the diaphragm. 3. Right internal jugular deep venous line which is unchanged. 4. No change in left lower lobe pneumonia per Electronically Signed: Jorgito Enamorado MD at 15:34 EST Tel , Service support , Medical Necessity - Tobacco Use Smoking Status: Current every day smoker Assessment/Plan All Active Problems (Last Reviewed 03/10/20 @ 13:[address] Micky Mauro MD) Sepsis due to pneumonia (Acute) Acute kidney injury (Acute) Hypoxemia (Acute) Elevated troponin (Acute) COVID-19 (Acute) Elevated INR (Resolved) Skin tear of left elbow without complication (Resolved) RECOMMENDATIONS: 1. Continue beta-cyndi and amiodarone. 2. Continue antimicrobials per infectious diseases recommendations. 3. Continue Decadron 6 mg daily x10 days. 4. Continue BiPAP as ordered and wean FiO2 to maintain oxygen saturations at or above 90%. 5. Discontinue Dilaudid completely. 6. Continue Levophed and wean to maintain a mean arterial pressure at or above 65 mmHg. 7. Continue Eliquis. IMPRESSIONS: 1. Acute hypoxemic respiratory failure Likely multifactorial in etiology with community-acquired and COVID-19 pneumonia contributing, along with atrial fibrillation with rapid ventricular rate. The patient is currently on appropriate antimicrobials, with infectious diseases following. The patient did receive convalescent plasma. Continue Decadron as ordered. The patient would not be a remdesivir candidate given his underlying renal function. Continue BiPAP therapy as ordered with plans to wean FiO2 to maintain oxygen saturations at or above 90%. 2. Distributive shock Again, likely multifactorial in etiology with underlying sepsis and hemodynamic impacts of opiate pain medications contributing. The patient is currently on low-dose Levophed to maintain hemodynamic stability. We will continue to wean to maintain a mean arterial pressure at or above 65 mmHg. At this time, I would recommend discontinuation of Dilaudid. 3. Acute kidney injury on CKD stage IV Clinical concern for ischemic ATN in the setting of septic shock. Nephrology is currently following. Continue current supportive measures. 4. History of A. fib/flutter with RVR/cardiomyopathy The patient is followed by Dr. Mauro as an outpatient. Will plan to continue beta-blockade and amiodarone as ordered. 5. History of DVT/PE on Eliquis Continue Eliquis per outpatient medication regimen. 6. Hypertension/hyperlipidemia/history of non-Hodgkin's lymphoma status post splenectomy Complicates care, management, recovery and prognosis. Physical therapy on hold due to tenuous respiratory status. CODE status: Discussed CODE status at length including difference between FULL code, DNR-CCA and DNR-CC status. Following discussions about the differences in these status, patient requested DNR CCA/DNI CODE STATUS. TIME: 34 minutes of critical care time, independent of procedures, was spent addressing the patient's acute hypoxemic respiratory failure, distributive shock, acute kidney injury, atrial fibrillation, review of all data and collaboration with the care team. [id number]) [id number] Critical care first hour
--- NOTE | 2020-03-23 07:39 | PN_ITS ---
Patient Problems: Active and Suspected Problems (Last Reviewed 03/10/20 @ 13:[address] Micky Mauro MD) Sepsis due to pneumonia (Acute) Acute kidney injury (Acute) Hypoxemia (Acute) Elevated troponin (Acute) COVID-19 (Acute) Reason for Visit: Acute hypoxic respiratory failure Acute COVID-19 pneumonitis MRSA pneumonia Subjective: Patient was found to be significantly lethargic during the night. He also went into A. fib with RVR necessitating increasing dose of his amiodarone. Patient was placed on noninvasive ventilation BiPAP . Patient clinical condition continues to worsen. He has significant azotemia Objective: GENERAL: on BiPAP HEENT: Atraumatic; EYES; Anicteric, Normal Conjunctiva NECK; supple, normal thyroid, RESPIRATORY: Diminished to auscultation CARDIOVASCULAR: Irregular S1-S2 tachycardic GI: soft, normoactive bowel sounds, : No Renal angle tenderness; EXTREMITIES: No edema, no clubbing, MUSCULOSKELETAL: no muscle waisting NEURO: Awake; no lateralizing signs. SKIN: No Rash PSYCH; Flat affect Vitals/I&O's: Vital Signs Temp Pulse Resp BP Pulse Ox 97.5 F L 101 H 28 H 103/83 H 95 03/23/20 07:00 03/23/20 07:00 03/23/20 07:00 03/23/20 07:00 03/23/20 07:00 Oxygen Flow Rate (L/min) 7 Oxygen Delivery Method Bi-pap Weight: 110.2 kg Body Mass Index (BMI) 35.3 Intake and Output for Last 24 Hours 03/21/20 03/22/20 03/23/20 23:59 23:59 23:59 Intake Total 1371.25 / 1371.25 640 / 640 1172.02 / 1172.02 Output Total 375 / 375 720 / 720 75 / 75 Balance 996.25 / 996.25 -80 / -80 1097.02 / 1097.02 Microbiology Past 72 Hours 03/22/20 00:20 Urine Catheter - Garcia Legionella Antigen - Final 03/22/20 00:20 Urine Catheter - Garcia Streptococcus pneumoniae Antigen (M - Final 03/21/20 20:00 Mucosa - Nasopharyngeal - Final Laboratory Results 03/22/20 11:25: POC Glucose 158 H 03/22/20 15:25: Blood Type O POSITIVE 03/22/20 16:48: POC Glucose 150 H 03/22/20 23:54: Specimen Type ART, Sample Site L Radial, pH 7.23 L, Bicarbonate Actual 21.8 L, Total CO2 23, Base Excess -6 L, O2 Saturation 92 L, O2 % 30, ABG pCO2 52.6 H, ABG pO2 77, Respiration Rate 12, O2 Delivery Device BiPAP, POC PEEP 10, POC Pressure Suppt 6 03/23/20 03:30: WBC 10.2, RBC 2.67 L, Hgb 9.6 L, Hct 31.7 L, MCV 118.7 H, MCH 36.0 H, MCHC 30.3 L, RDW Std Deviation 82.9 H, RDW Coeff of Reggie 19.0 H, Plt Count 322, MPV 10.9, Immature Gran % (Auto) 0.700, Neut % (Auto) 92.6 H, Lymph % (Auto) 3.2 L, Saunders % (Auto) 3.4, Eos % (Auto) 0.0, Baso % (Auto) 0.1, Absolute Neuts (auto) 9.4 H, Absolute Lymphs (auto) 0.32 L, Nucleated RBC % 0.2, Differential Comment SCANNED, Target Cells RARE 03/23/20 03:30: Sodium 141, Potassium 4.8, Chloride 111 H, Carbon Dioxide 24.0, Anion Gap 6, BUN 107 H*, Creatinine 3.62 H, Estim Creat Clear Calc 17.06, Est GFR (MDRD) Af Amer 21 L, Est GFR (MDRD) Non-Af 18 L, BUN/Creatinine Ratio 29.6 H , Glucose 134 H, Calcium 8.6, Total Bilirubin 0.30, AST 29, ALT 46, Alkaline Phosphatase 106, Total Protein 7.9, Albumin 2.1 L, Globulin 5.8 H, Albumin/Globulin Ratio 0.4 L Current Medications Acetaminophen (Acetaminophen 325 Mg Tablet) 650 mg PO Q6H PRN PRN PRN Reason: Pain Score 1-10/Temp > 100.7 F Last Admin: 03/22/20 05:04 Dose: 650 mg Documented by: Albuterol Sulfate (Albuterol 2.5 Mg/3 Ml Vial.Neb.) 2.5 mg INHALATION Q2H PRN PRN PRN Reason: DYSPNEA Amiodarone HCl (Amiodarone 200 Mg Tablet) 200 mg PO BID [facility] Last Admin: 03/22/20 20:02 Dose: 200 mg Documented by: Apixaban (Apixaban 2.5 Mg Tablet) 2.5 mg PO BID [facility] Last Admin: 03/22/20 20:02 Dose: 2.5 mg Documented by: Atorvastatin Calcium (Atorvastatin Calcium 20 Mg Tablet) 20 mg PO QHS [facility] Last Admin: 03/22/20 20:01 Dose: 20 mg Documented by: Calamine/Phenol (Menthol/Lanolin/Calamine/Znox 113 Gm Tube) 1 applic TOPICAL TID [facility]; Protocol Last Admin: 03/23/20 04:43 Dose: 1 applicatio Documented by: Dexamethasone Sodium Phosphate (Dexamethasone 4 Mg/Ml Vial) 6 mg IV DAILY [facility] Stop: 03/30/20 10:01 Last Admin: 03/22/20 08:30 Dose: 6 mg Documented by: Gabapentin (Gabapentin 600 Mg Tablet) 600 mg PO QHS [facility] Last Admin: 03/22/20 20:02 Dose: 600 mg Documented by: Gabapentin (Gabapentin 300 Mg Capsule) 300 mg PO DAILY [facility] Last Admin: 03/22/20 08:30 Dose: 300 mg Documented by: Hydromorphone HCl (Hydromorphone 2 Mg Tablet) 2 mg PO Q6H PRN PRN PRN Reason: Pain Score 4-10 Last Admin: 03/22/20 20:02 Dose: 2 mg Documented by: Ceftriaxone Sodium 2 gm/ (Sodium Chloride) 50 mls @ 100 mls/hr IV Q24H [facility] Last Infusion: 03/22/20 12:06 Dose: Infused Documented by: Sodium Chloride () 250 mls @ 15 mls/hr IV .[id number] PRN PRN Reason: Saline Flush Last Infusion: 03/21/20 14:23 Dose: 0 mls/hr Documented by: Sodium Chloride () 250 mls @ 15 mls/hr IV .[id number] PRN PRN Reason: Additional IVPB Infusion Norepinephrine Bitartrate 8 mg (/ Sodium Chloride) 250 mls @ 9.375 mls/hr CONT INF .[id number] [facility]; Protocol Last Titration: 03/23/20 07:00 Dose: 5 mcg/min, 9.4 mls/hr Documented by: Insulin Human Lispro (Insulin Lispro 100 Unit/Ml Insuln.Pen) 0 unit SC ACHS [facility]; Protocol Last Admin: 03/22/20 20:06 Dose: Not Given Documented by: L-Arginine/L-Glutamine/Calcium HMB (Jackson (Unflavored) Packet) 1 packet PO BIDCM [facility] Last Admin: 03/22/20 16:51 Dose: 1 packet Documented by: Lidocaine HCl (Lidocaine Jelly 2% Tube 30 Ml) 0.25 tube TOPICAL TID [facility]; Protocol Last Admin: 03/23/20 04:43 Dose: 0.25 tube Documented by: Linezolid (Linezolid 600 Mg Tablet) 600 mg PO BID [facility] Last Admin: 03/22/20 20:02 Dose: 600 mg Documented by: Magnesium Chloride (Magnesium Chloride 64 Mg Delay Rel.Tablet) 128 mg PO OBINNA LY@0800 [facility] Last Admin: 03/22/20 08:30 Dose: 128 mg Documented by: Metoprolol Succinate (Metoprolol(Xl)Succ 50 Mg Tablet) 50 mg PO DAILY [facility] Last Admin: 03/22/20 11:36 Dose: 50 mg Documented by: Ondansetron HCl (Ondansetron 4 Mg/2 Ml Vial) 4 mg IV Q8H PRN PRN PRN Reason: NAUSEA/VOMITING Pantoprazole Sodium (Pantoprazole Sodium 20 Mg Tablet) 20 mg PO BID [facility] Last Admin: 03/22/20 20:02 Dose: 20 mg Documented by: Sodium Chloride (0.9% Saline Lock 10 Ml Syringe) 10 - 40 ml IV UD PRN PRN Reason: SALINE FLUSH Last Admin: 03/23/20 03:36 Dose: 20 ml Documented by: STROKE Vital Signs/Narrative: Vital Signs Temp Pulse Resp BP Pulse Ox 03/23/20 07:00 97.5 F L 101 H 28 H 103/83 H 95 03/23/20 06:00 97.6 F L 100 16 115/69 97 03/23/20 05:00 97.5 F L 111 H 18 99/72 99 03/23/20 04:10 103 H 21 H 96 03/23/20 04:01 103 H 03/23/20 04:00 97.2 F L 104 H 20 H 111/82 H 97 Medical Necessity - Tobacco Use Smoking Status: Current every day smoker Assessment/Plan All Active Problems (Last Reviewed 03/10/20 @ 13:[address] Micky Mauro MD) Sepsis due to pneumonia (Acute) Acute kidney injury (Acute) Hypoxemia (Acute) Elevated troponin (Acute) COVID-19 (Acute) Elevated INR (Resolved) Skin tear of left elbow without complication (Resolved) Patient is a 74-year-old gentleman admitted with progressive shortness of breath and assessment of septic shock and acute hypoxic respiratory failure secondary to pneumonia made 1. Septic shock -secondary to MRSA pneumonia septic shock now resolved -03/22/2020; repeat lactic acid came back wnl 2. Acute hypoxic hypercapnic respiratory failure ?Patient was initially managed on the vent extubated on 03/19/2020 -03/22/2020 Patient was transferred to the intensive care unit following deterioration in his clinical condition. ABGs obtained demonstrated respiratory acidosis with hypercapnia placed on noninvasive ventilation?BiPAP. Patient was also found to be slightly hypotensive resuscitated with IV fluids. His kidney function has since worsened -03/23/2020 patient was found to be significantly lethargic the day prior. He also went into A. fib with RVR necessitating increasing dose of his amiodarone. Patient was placed on noninvasive ventilation BiPAP due to significant hypercapnia with subsequent lethargy. Patient remains on BiPAP. Had a discussion with patient's regarding his current condition. Patient will have a discussion with the via FaceTime and decide on his CODE STATUS. 3. MRSA pneumonia ?Patient managed with Zyvox as stated above presented with septic shock and acute hypoxic respiratory failure 4. COVID-19 pneumonitis ?Diagnosed after almost a week of hospital stay. Consult placed to ID. Patient started on Decadron -03/23/2020: Patient was seen in consultation by ID patient did receive c onvalescent plasma. Already on Decadron 5. Paroxysmal A. fib ?Rate controlled on systemic anticoagulation with Eliquis rate controlled with amiodarone and beta-blockers -03/23/2020. Patient went into A. fib with RVR his amiodarone dose increased 6. Dyslipidemia -Patient is on statin therapy, continued at home dose 7. Hypertension - Blood pressure controlled, home medications continued with dose adjustment as needed 8. Non healing surgical wound involving his back ?Consult placed to wound care nurse 9. Morbid obesity - With a BMI of 37 patient was counseled on weight reduction 10. GERD ?On PPI 11. Acute kidney injury superimposed on chronic kidney disease stage III ?This was attributed to ischemic ATN related to septic shock. Nephrology on board following -03/23/2020; patient kidney function continues to worsen 12. Chronic alcoholic cirrhosis ?Patient is on lactulose and Lasix held in view of patient presenting complaints 13. Anemia - Secondary to chronic disorder monitoring H&H and transfuse if patient becomes symptomatic or hemoglobin falls below 7 14. History of previous venous thromboembolism (PE/DVT) ?Patient is on Eliquis 15. Physical deconditioning - Requested for PT OT eval and social sciences research scientist to assist with discharge planning 16. Chronic pain syndrome ?Patient was high doses of dilaudid; doses adjusted 17. DVT prophylaxis ?Eliquis Patient prognosis; guarded Had a discussion with patient's regarding his current clinical condition plan is for family meeting via FaceTime to decide CODE STATUS Inpatient E&M: [id number] Subs Hosp L3
--- NOTE | 2020-03-23 10:30 | NURSING ---
This RN speaking w/pt and his via [employer]. disc at length O2/CO2 requirements, bipap, AirVo, high flow nc, labs, possible need for dialysis if BUN/Creat don't decrease (per Dr. Oleary), pt/ wishes re: CPR, defibrillation, intubation, DNRCC/CNRCC-A/full code. After disc both pt and his decide DNRCC-A, DNI w/re-eval in a few days if he is not improved. Pt states to his , he loves her very much but is tired and over this whole thing. She indicates understanding. many questions answered, reassurance given. Dr. Mendes/Derek notified above.
--- NOTE | 2020-03-23 10:44 | PN.RENAL_ITS ---
Patient Problems: Active and Suspected Problems (Last Reviewed 03/10/20 @ 13:[address] Micky Mauro MD) Sepsis due to pneumonia (Acute) Acute kidney injury (Acute) Hypoxemia (Acute) Elevated troponin (Acute) COVID-19 (Acute) Subjective: Patient is still in ICU. started on levophed last night . currently on 5 mcg/min making urine. On BiPAP this am Patient was not examined this morning to limit exposure to COVID-19 viral infection and to preserve PPE patient' clinical status was discussed with Dr. Mendes and ICU nurse - Physical Exam Vitals/I&O's: Vital Signs Temp Pulse Resp BP Pulse Ox 97.5 F L 93 26 H 103/83 H 96 03/23/20 07:00 03/23/20 09:30 03/23/20 09:30 03/23/20 07:00 03/23/20 09:30 Oxygen Flow Rate (L/min) 7 Oxygen Delivery Method Bi-pap Weight: 110.2 kg Body Mass Index (BMI) 35.3 Intake and Output for Last 24 Hours 03/21/20 03/22/20 03/23/20 23:59 23:59 23:59 Intake Total 1371.25 / 1371.25 640 / 640 1172.02 / 1172.02 Output Total 375 / 375 720 / 720 75 / 75 Balance 996.25 / 996.25 -80 / -80 1097.02 / 1097.02 Microbiology Past 72 Hours 03/22/20 00:20 Urine Catheter - Garcia Legionella Antigen - Final 03/22/20 00:20 Urine Catheter - Garcia Streptococcus pneumoniae Antigen (M - Final 03/21/20 20:00 Mucosa - Nasopharyngeal - Final Laboratory Results 03/22/20 11:25: POC Glucose 158 H 03/22/20 15:25: Blood Type O POSITIVE 03/22/20 16:48: POC Glucose 150 H 03/22/20 23:54: Specimen Type ART, Sample Site L Radial, pH 7.23 L, Bicarbonate Actual 21.8 L, Total CO2 23, Base Excess -6 L, O2 Saturation 92 L, O2 % 30, ABG pCO2 52.6 H, ABG pO2 77, Respiration Rate 12, O2 Delivery Device BiPAP, POC PEEP 10, POC Pressure Suppt 6 03/23/20 03:30: WBC 10.2, RBC 2.67 L, Hgb 9.6 L, Hct 31.7 L, MCV 118.7 H, MCH 36.0 H, MCHC 30.3 L, RDW Std Deviation 82.9 H, RDW Coeff of Reggie 19.0 H, Plt Count 322, MPV 10.9, Immature Gran % (Auto) 0.700, Neut % (Auto) 92.6 H, Lymph % (Auto) 3.2 L, [place] % (Auto) 3.4, Eos % (Auto) 0.0, Baso % (Auto) 0.1, Absolute Neuts (auto) 9.4 H, Absolute Lymphs (auto) 0.32 L, Nucleated RBC % 0.2, Differential Comment SCANNED, Target Cells RARE 03/23/20 03:30: Sodium 141, Potassium 4.8, Chloride 111 H, Carbon Dioxide 24.0, Anion Gap 6, BUN 107 H*, Creatinine 3.62 H, Estim Creat Clear Calc 17.06, Est GFR (MDRD) Af Amer 21 L, Est GFR (MDRD) Non-Af 18 L, BUN/Creatinine Ratio 29.6 H , Glucose 134 H, Calcium 8.6, Total Bilirubin 0.30, AST 29, ALT 46, Alkaline Phosphatase 106, Total Protein 7.9, Albumin 2.1 L, Globulin 5.8 H, Albumin/Globulin Ratio 0.4 L Current Medications Acetaminophen (Acetaminophen 325 Mg Tablet) 650 mg PO Q6H PRN PRN PRN Reason: Pain Score 1-10/Temp > 100.7 F Last Admin: 03/22/20 05:04 Dose: 650 mg Documented by: Albuterol Sulfate (Albuterol 2.5 Mg/3 Ml Vial.Neb.) 2.5 mg INHALATION Q2H PRN PRN PRN Reason: DYSPNEA Amiodarone HCl (Amiodarone 200 Mg Tablet) 200 mg PO BID [facility] Last Admin: 03/22/20 20:02 Dose: 200 mg Documented by: Apixaban (Apixaban 5 Mg Tablet) 5 mg PO BID [facility] Atorvastatin Calcium (Atorvastatin Calcium 20 Mg Tablet) 20 mg PO QHS [facility] Last Admin: 03/22/20 20:01 Dose: 20 mg Documented by: Calamine/Phenol (Menthol/Lanolin/Calamine/Znox 113 Gm Tube) 1 applic TOPICAL TID [facility]; Protocol Last Admin: 03/23/20 04:43 Dose: 1 applicatio Documented by: Dexamethasone Sodium Phosphate (Dexamethasone 4 Mg/Ml Vial) 6 mg IV DAILY [facility] Stop: 03/30/20 10:01 Last Admin: 03/22/20 08:30 Dose: 6 mg Documented by: Gabapentin (Gabapentin 600 Mg Tablet) 600 mg PO QHS [facility] Last Admin: 03/22/20 20:02 Dose: 600 mg Documented by: Gabapentin (Gabapentin 300 Mg Capsule) 300 mg PO DAILY [facility] Last Admin: 03/22/20 08:30 Dose: 300 mg Documented by: Ceftriaxone Sodium 2 gm/ (Sodium Chloride) 50 mls @ 100 mls/hr IV Q24H [facility] Last Infusion: 03/22/20 12:06 Dose: Infused Documented by: Sodium Chloride () 250 mls @ 15 mls/hr IV .[id number] PRN PRN Reason: Saline Flush Last Infusion: 03/21/20 14:23 Dose: 0 mls/hr Documented by: Sodium Chloride () 250 mls @ 15 mls/hr IV .[id number] PRN PRN Reason: Additional IVPB Infusion Norepinephrine Bitartrate 8 mg (/ Sodium Chloride) 250 mls @ 9.375 mls/hr CONT INF .[id number] [facility]; Protocol Last Titration: 03/23/20 07:00 Dose: 5 mcg/min, 9.4 mls/hr Documented by: Insulin Human Lispro (Insulin Lispro 100 Unit/Ml Insuln.Pen) 0 unit SC [facility]; Protocol Last Admin: 03/23/20 08:58 Dose: Not Given Documented by: L-Arginine/L-Glutamine/Calcium HMB (Jackson (Unflavored) Packet) [facility] Last Admin: 03/22/20 16:51 Dose: 1 packet Documented by: Lidocaine HCl (Lidocaine Jelly 2% Tube 30 Ml) 0.25 tube TOPICAL TID [facility]; Protocol Last Admin: 03/23/20 04:43 Dose: 0.25 tube Documented by: Linezolid (Linezolid 600 Mg Tablet) 600 mg PO BID [facility] Last Admin: 03/22/20 20:02 Dose: 600 mg Documented by: Magnesium Chloride (Magnesium Chloride 64 Mg Delay Rel.Tablet) 128 mg PO DAILY@0800 [facility] Last Admin: 03/22/20 08:30 Dose: 128 mg Documented by: Metoprolol Succinate (Metoprolol(Xl)Succ 50 Mg Tablet) 50 mg PO DAILY [facility] Last Admin: 03/22/20 11:36 Dose: 50 mg Documented by: Ondansetron HCl (Ondansetron 4 Mg/2 Ml Vial) 4 mg IV Q8H PRN PRN PRN Reason: NAUSEA/VOMITING Pantoprazole Sodium (Pantoprazole Sodium 20 Mg Tablet) 20 mg PO BID [facility] Last Admin: 03/22/20 20:02 Dose: 20 mg Documented by: Sodium Chloride (0.9% Saline Lock 10 Ml Syringe) 10 - 40 ml IV UD PRN PRN Reason: SALINE FLUSH Last Admin: 03/23/20 03:36 Dose: 20 ml Documented by: Medical Necessity - Tobacco Use Smoking Status: Current every day smoker Assessment/Plan All Active Problems (Last Reviewed 03/10/20 @ 13:[address] Micky Mauro MD) Sepsis due to pneumonia (Acute) Acute kidney injury (Acute) Hypoxemia (Acute) Elevated troponin (Acute) COVID-19 (Acute) Elevated INR (Resolved) Skin tear of left elbow without complication (Resolved) 1. Acute kidney injury on chronic kidney disease stage 3. Baseline SCr has been around 1.8 mg/dL. BRIANA is due to ischemic ATN related to septic shock. BRIANA improved but patient is not experiencing 2nd BRIANA likely BRIANA from hemodynamic shock Cr and BUN are rising. Non oliguric No indication for CESSATION SYSTEMS OUTREACH SPECIALIST today but patient might need it in the coming 24-48 hrs Keep MAP >65 Monitor RFP and UOP 2- Septic shock. O levophed drip this am Improved. On ceftriaxone IV as per ICU team 3- COVID-19 infection with hypoxia. On dexamethasone On BiPAP. as per ICU team d/w Dr. Mendes
[2020-03-23] MEDS: APIXABAN 5 MG TABLET PO ×2 (13:27→20:16)
[2020-03-23] MEDS: Juven (unflavored) Packet 1 PACKET PO ×2 (13:28→20:13)
[2020-03-23] MEDS: dexAMETHasone 4 MG/ML Vial 6 MG IV (13:29)
[2020-03-23] MEDS: Magnesium Chloride 64 MG Delay Rel.Tablet 128 MG PO (13:29)
[2020-03-23] MEDS: Amiodarone 200 MG Tablet PO ×2 (13:30→20:16)
[2020-03-23] MEDS: Linezolid 600 MG Tablet PO ×2 (13:30→20:21)
[2020-03-23] MEDS: Pantoprazole Sodium 20 MG Tablet PO ×2 (13:31→20:16)
[2020-03-23] MEDS: Gabapentin 300 MG Capsule PO (13:32)
[2020-03-23] MEDS: Acetaminophen 325 MG Tablet 650 MG PO ×2 (13:38→20:51)
[2020-03-23 14:11] LABS: Bedside Glucose 124 mg/dL (70-110)
--- NOTE | 2020-03-23 15:07 | PCM.PN.ID ---
Patient Problems: Active and Suspected Problems (Last Reviewed 03/10/20 @ 13:[address] Micky Mauro MD) Sepsis due to pneumonia (Acute) Acute kidney injury (Acute) Hypoxemia (Acute) Elevated troponin (Acute) COVID-19 (Acute) Subjective: Feeling better today, no fever, breathing improved - Physical Exam Vitals/I&O's: Vital Signs Temp Pulse Resp BP Pulse Ox 98.4 F 120 H 24 H 110/67 97 03/23/20 14:00 03/23/20 14:00 03/23/20 14:00 03/23/20 14:00 03/23/20 14:00 Oxygen Flow Rate (L/min) 5 Oxygen Delivery Method Nasal Cannula Weight: 110.2 kg Body Mass Index (BMI) 35.3 Intake and Output for Last 24 Hours 03/21/20 03/22/20 03/23/20 23:59 23:59 23:59 Intake Total 1371.25 / 1371.25 640 / 640 1213.17 / 1213.17 Output Total 375 / 375 720 / 720 75 / 75 Balance 996.25 / 996.25 -80 / -80 1138.17 / 1138.17 General: Alert, Cooperative, No apparent distress Lungs: Diminished Cardiovascular: Regular rate, Regular Rhythm Abdomen: Soft, Non Tender, Non-Distended Skin: No rashes Microbiology Past 72 Hours 03/22/20 00:20 Urine Catheter - Garcia Legionella Antigen - Final 03/22/20 00:20 Urine Catheter - Garcia Streptococcus pneumoniae Antigen (M - Final 03/21/20 20:00 Mucosa - Nasopharyngeal - Final Laboratory Results 03/22/20 15:25: Blood Type O POSITIVE 03/22/20 16:48: POC Glucose 150 H 03/22/20 23:54: Specimen Type ART, Sample Site L Radial, pH 7.23 L, Bicarbonate Actual 21.8 L, Total CO2 23, Base Excess -6 L, O2 Saturation 92 L, O2 % 30, ABG pCO2 52.6 H, ABG pO2 77, Respiration Rate 12, O2 Delivery Device BiPAP, POC PEEP 10, POC Pressure Suppt 6 03/23/20 03:30: WBC 10.2, RBC 2.67 L, Hgb 9.6 L, Hct 31.7 L, MCV 118.7 H, MCH 36.0 H, MCHC 30.3 L, RDW Std Deviation 82.9 H, RDW Coeff of Reggie 19.0 H, Plt Count 322, MPV 10.9, Immature Gran % (Auto) 0.700, Neut % (Auto) 92.6 H, Lymph % (Auto) 3.2 L, [place] % (Auto) 3.4, Eos % (Auto) 0.0, Baso % (Auto) 0.1, Absolute Neuts (auto) 9.4 H, Absolute Lymphs (auto) 0.32 L, Nucleated RBC % 0.2, Differential Comment SCANNED, Target Cells RARE 03/23/20 03:30: Sodium 141, Potassium 4.8, Chloride 111 H, Carbon Dioxide 24.0, Anion Gap 6, BUN 107 H*, Creatinine 3.62 H, Estim Creat Clear Calc 17.06, Est GFR (MDRD) Af Amer 21 L, Est GFR (MDRD) Non-Af 18 L, BUN/Creatinine Ratio 29.6 H, Glucose 134 H, Calcium 8.6, Total Bilirubin 0.30, AST 29, ALT 46, Alkaline Phosphatase 106, Total Protein 7.9, Albumin 2.1 L, Globulin 5.8 H, Albumin/Globulin Ratio 0.4 L 03/23/20 13:24: POC Glucose 124 H Current Medications Acetaminophen (Acetaminophen 325 Mg Tablet) 650 mg PO Q6H PRN PRN PRN Reason: Pain Score 1-10/Temp > 100.7 F Last Admin: 03/23/20 13:38 Dose: 650 mg Documented by: Albuterol Sulfate (Albuterol 2.5 Mg/3 Ml Vial.Neb.) 2.5 mg INHALATION Q2H PRN PRN PRN Reason: DYSPNEA Amiodarone HCl (Amiodarone 200 Mg Tablet) 200 mg PO BID [facility] Last Admin: 03/23/20 13:30 Dose: 200 mg Documented by: Apixaban (Apixaban 5 Mg Tablet) 5 mg PO BID [facility] Last Admin: 03/23/20 13:27 Dose: 5 mg Documented by: Atorvastatin Calcium (Atorvastatin Calcium 20 Mg Tablet) 20 mg PO QHS [facility] Last Admin: 03/22/20 20:01 Dose: 20 mg Documented by: Calamine/Phenol (Menthol/Lanolin/Calamine/Znox 113 Gm Tube) 1 applic TOPICAL TID [facility]; Protocol Last Admin: 03/23/20 04:43 Dose: 1 applicatio Documented by: Dexamethasone Sodium Phosphate (Dexamethasone 4 Mg/Ml Vial) 6 mg IV DAILY [facility] Stop: 03/30/20 10:01 Last Admin: 03/23/20 13:29 Dose: 6 mg Documented by: Gabapentin (Gabapentin 600 Mg Tablet) 600 mg PO QHS [facility] Last Admin: 03/22/20 20:02 Dose: 600 mg Documented by: Gabapentin (Gabapentin 300 Mg Capsule) 300 mg PO DAILY [facility] Last Admin: 03/23/20 13:32 Dose: 300 mg Documented by: Ceftriaxone Sodium 2 gm/ (Sodium Chloride) 50 mls @ 100 mls/hr IV Q24H [facility] Last Admin: 03/23/20 13:52 Dose: 100 mls/hr Documented by: Sodium Chloride () 250 mls @ 15 mls/hr IV .[id number] PRN PRN Reason: Saline Flush Last Infusion: 03/21/20 14:23 Dose: 0 mls/hr Documented by: Sodium Chloride () 250 mls @ 15 mls/hr IV .[id number] PRN PRN Reason: Additional IVPB Infusion Norepinephrine Bitartrate 8 mg (/ Sodium Chloride) 250 mls @ 9.375 mls/hr CONT INF .[id number] [facility]; Protocol Last Titration: 03/23/20 14:00 Dose: 3 mcg/min, 5.6 mls/hr Documented by: Insulin Human Lispro (Insulin Lispro 100 Unit/Ml Insuln.Pen) 0 unit SC [facility]; Protocol Last Admin: 03/23/20 13:00 Dose: Not Given Documented by: L-Arginine/L-Glutamine/Calcium HMB ([place] (Unflavored) Packet) [facility] Last Admin: 03/23/20 13:28 Dose: 1 packet Documented by: Lidocaine HCl (Lidocaine Jelly 2% Tube 30 Ml) 0.25 tube TOPICAL TID [facility]; Protocol Last Admin: 03/23/20 04:43 Dose: 0.25 tube Documented by: Linezolid (Linezolid 600 Mg Tablet) 600 mg PO BID [facility] Last Admin: 03/23/20 13:30 Dose: 600 mg Documented by: Magnesium Chloride (Magnesium Chloride 64 Mg Delay Rel.Tablet) 128 mg PO DAILY@0800 [facility] Last Admin: 03/23/20 13:29 Dose: 128 mg Documented by: Metoprolol Succinate (Metoprolol(Xl)Succ 50 Mg Tablet) 50 mg PO DAILY [facility] Last Admin: 03/23/20 13:44 Dose: Not Given Documented by: Ondansetron HCl (Ondansetron 4 Mg/2 Ml Vial) 4 mg IV Q8H PRN PRN PRN Reason: NAUSEA/VOMITING Pantoprazole Sodium (Pantoprazole Sodium 20 Mg Tablet) 20 mg PO BID [facility] Last Admin: 03/23/20 13:31 Dose: 20 mg Documented by: Sodium Chloride (0.9% Saline Lock 10 Ml Syringe) 10 - 40 ml IV UD PRN PRN Reason: SALINE FLUSH Last Admin: 03/23/20 13:26 Dose: 20 ml Documented by: Medical Necessity - Tobacco Use Smoking Status: Current every day smoker Route of nutrition/ use of supplements: [] Nutritional Intake: [] IV Site: [] Garcia Catheter: [] - Assessment/Plan Antibiotics: [] Assessment/Plan: [] Active and Suspected Problems (Last Reviewed 03/10/20 @ 13:[address] Micky Mauro MD) Sepsis due to pneumonia (Acute) Acute kidney injury (Acute) Hypoxemia (Acute) Elevated troponin (Acute) covid with hypoxia and MRSA pneumonia - moved back to icu. Repeat covid (+). On dex. Got plasma 03/22. Feeling better. On 6L NC. Cont linezolid and ceftriaxone for now. Ucx pending. UAg neg. Will follow
[2020-03-23] MEDS: TITRATION PARAMETER CHANGE 1 EACH IV (15:24)
--- NOTE | 2020-03-23 18:18 | NURSING ---
ed re chronic illness deferred till acute illness resolving
[2020-03-23 19:51] LABS: Bedside Glucose 122 mg/dL (70-110)
[2020-03-23] MEDS: Gabapentin 600 MG Tablet PO (20:16)
[2020-03-23] MEDS: Atorvastatin Calcium 20 MG Tablet PO (20:16)
[2020-03-23 22:05] LABS: Bedside Glucose 148 mg/dL (70-110)
[2020-03-24] VITALS (27 sets, daily range): BP systolic 87–128; BP diastolic 47–88; PULSE 89–119; RESP 14–25; TEMP 36.3–36.9; O2SAT 6–99
[2020-03-24] MEDS: Alteplase 2 MG/2 ML Vial IV (02:09)
[2020-03-24] MEDS: Acetaminophen 325 MG Tablet 650 MG PO ×2 (03:09→22:51)
[2020-03-24] MEDS: Menthol/Lanolin/Calamine/Znox 113 GM Tube 1 APPLIC TOPICAL ×2 (03:09→14:34)
[2020-03-24] MEDS: 0.9% Saline Lock 10 ML Syringe IV ×3 (03:09→10:37)
[2020-03-24 03:49] LABS: Absolute Lymphocyte Count 0.28 X10^3/uL (0.83-4.51); Absolute Neutrophil Count 10.1 X10^3/uL (2.0-7.7); Basophil# 0.01 X10^3/uL; Basophil% 0.1 % (0-1); Hematocrit 28.1 % (40-54); Hemoglobin 8.5 g/dL (13.0-16.5); Lymphocyte # 0.28 X10^3/ul (4.0); Lymphocyte % 2.6 % (19-41); Mean Corp Hgb Conc 30.2 g/dL (32-36); Mean Corpuscular Hgb 36.2 pg (27.0-32.0); Mean Corpuscular Volume 119.6 fL (80-94); Mean Platelet Vol. 10.7 fl (6.2-12.0); Monocyte# 0.37 X10^3/uL; Monocyte% 3.4 % (0-10); NRBC Flagged by Analyzer 0.4 % (0-5); Neutrophil # 10.06 X10^3/uL (2.7-7.7); Neutrophil % 93.3 % (47-70); POSITIVE DIFFERENTIAL YES; POSITIVE MORPHOLOGY YES; Platelet Count 305 K/mm3 (150-450); RBC Distribution Width CV 18.8 % (11.6-14.6); RBC Distribution Width SD 83.2 fl (35.1-43.9); Red Blood Count 2.35 M/mm3 (4.6-6.2); White Blood Count 10.8 K/mm3 (4.4-11.0)
[2020-03-24 03:51] LABS: Differential Indicated SCAN CRITERIA MET
[2020-03-24 04:09] LABS: ALB/GLOB Ratio 0.4 RATIO (0.9-2.4); AST(SGOT) 33 U/L (15-37); Alanine Aminotransfer ALT/SGPT 44 U/L (16-61); Alkaline Phosphatase 93 U/L (45-117); Anion Gap 6 (5-15); BUN 124 mg/dL (7-18); BUN/Creat Ratio 30.6 RATIO (10-20); Calcium,Total 8.3 mg/dL (8.5-10.1); Chloride 112 mmol/L (98-107); Creatinine, Serum 4.05 mg/dL (0.70-1.30); EST Glomerular Filtration Rate 15 mL/min (>60); Est Glom Filt Rate - Afr Amer 19 mL/min (>60); Estimated Creatinine Clearance 15.25 ml/min; Globulin 5.1 g/dL (2.2-4.2); Glucose 121 mg/dL (74-106); Potassium 4.8 mmol/L (3.5-5.1); Protein, Total 7.1 g/dL (6.4-8.2); Sodium Level 141 mmol/L (136-145)
[2020-03-24 04:27] LABS: Differential Comment SCANNED; Target Cells RARE
--- NOTE | 2020-03-24 06:17 | PCM.PN.INT ---
Subjective: The patient was seen and examined at the bedside this morning. Events from the last 24 hours have been reviewed. The patient is currently afebrile, hemodynamically stable and maintaining appropriate oxygen saturations on supplemental oxygen via nasal cannula. The patient was able to be weaned off of Levophed completely yesterday. He was maintained on AVAPS, but was able to be weaned to supplemental oxygen via nasal cannula this morning. He denies any significant resting shortness of breath. Renal function and urine output continue to worsen. The patient remains on Eliquis, antimicrobials and Decadron. He is currently documented to be overall net +14.8 L for the hospital admission. Objective: The patient's most recent lab work, culture data and imaging studies have all been personally reviewed. Urine culture dated March 14 was positive for Enterococcus. Sputum culture dated March 16 was positive for MRSA. Coronavirus PCR on March 14 was negative. However, follow-up coronavirus PCR on March 21 was positive. General: Alert, Cooperative, No apparent distress HEENT: Atraumatic, Normocephalic Oral: Dry Mucosa Neck: Supple, No Nodes, Trachea Midline Lungs: Diminished Cardiovascular: Normal S1, Normal S2, Tachycardic Abdomen: Bowel Sounds Present, Soft, Non Tender, Obese Extremities: No clubbing, No cyanosis, Edema Musculoskeletal: No Muscle Wasting Lymphatic: No Cervical, Supraclavicular, or Inguinal Adenopathy Neurological: Cranial nerves II-XII grossly intact, Neuro grossly intact Psych/Mental Status: Normal Affect Vital Signs Temp Pulse Resp BP Pulse Ox 97.4 F L 97 16 93/57 L 99 03/24/20 05:00 03/24/20 05:00 03/24/20 05:00 03/24/20 05:00 03/24/20 05:00 Oxygen Flow Rate (L/min) 3 Oxygen Delivery Method Bi-pap Weight: 247 lb 12.793 oz Body Mass Index (BMI) 35.3 Intake and Output for Last 24 Hours 03/22/20 03/23/20 03/24/20 23:59 23:59 23:59 Intake Total 640 / 640 1767.05 / 1767.05 321.25 / 321.25 Output Total 720 / 720 205 / 205 60 / 60 Balance -80 / -80 1562.05 / 1562.05 261.25 / 261.25 Labs (Last 48 Hours) 03/22/20 03/22/20 03/22/20 06:55 11:25 15:25 WBC RBC Hgb Hct MCV MCH MCHC RDW Std Deviation RDW Coeff of Reggie Plt Count MPV Immature Gran % (Auto) Neut % (Auto) Lymph % (Auto) [place] % (Auto) Eos % (Auto) Baso % (Auto) Absolute Neuts (auto) Absolute Lymphs (auto) Nucleated RBC % Differential Comment Target Cells Specimen Type Sample Site pH Bicarbonate Actual Total CO2 Base Excess O2 Saturation O2 % ABG pCO2 ABG pO2 Respiration Rate O2 Delivery Device POC PEEP POC Pressure Suppt Sodium Potassium Chloride Carbon Dioxide Anion Gap BUN Creatinine Estim Creat Clear Calc Est GFR (MDRD) Af Amer Est GFR (MDRD) Non-Af BUN/Creatinine Ratio Glucose Calcium Total Bilirubin AST ALT Alkaline Phosphatase Total Protein Albumin Globulin Albumin/Globulin Ratio POC Glucose 107 158 H Blood Type O POSITIVE 03/22/20 03/22/20 03/23/20 16:48 23:54 03:30 WBC 10.2 RBC 2.67 L Hgb 9.6 L Hct 31.7 L MCV 118.7 H MCH 36.0 H MCHC 30.3 L RDW Std Deviation 82.9 H RDW Coeff of Reggie 19.0 H Plt Count 322 MPV 10.9 Immature Gran % (Auto) 0.700 Neut % (Auto) 92.6 H Lymph % (Auto) 3.2 L [place] % (Auto) 3.4 Eos % (Auto) 0.0 Baso % (Auto) 0.1 Absolute Neuts (auto) 9.4 H Absolute Lymphs (auto) 0.32 L Nucleated RBC % 0.2 Differential Comment SCANNED Target Cells RARE Specimen Type ART Sample Site L Radial pH 7.23 L Bicarbonate Actual 21.8 L Total CO2 23 Base Excess -6 L O2 Saturation 92 L O2 % 30 ABG pCO2 52.6 H ABG pO2 77 Respiration Rate 12 O2 Delivery Device BiPAP POC PEEP 10 POC Pressure Suppt 6 Sodium Potassium Chloride Carbon Dioxide Anion Gap BUN Creatinine Estim Creat Clear Calc Est GFR (MDRD) Af Amer Est GFR (MDRD) Non-Af BUN/Creatinine Ratio Glucose Calcium Total Bilirubin AST ALT Alkaline Phosphatase Total Protein Albumin Globulin Albumin/Globulin Ratio POC Glucose 150 H Blood Type 03/23/20 03/23/20 03/23/20 03:30 13:24 17:48 WBC RBC Hgb Hct MCV MCH MCHC RDW Std Deviation RDW Coeff of Reggie Plt Count MPV Immature Gran % (Auto) Neut % (Auto) Lymph % (Auto) [place] % (Auto) Eos % (Auto) Baso % (Auto) Absolute Neuts (auto) Absolute Lymphs (auto) Nucleated RBC % Differential Comment Target Cells Specimen Type Sample Site pH Bicarbonate Actual Total CO2 Base Excess O2 Saturation O2 % ABG pCO2 ABG pO2 Respiration Rate O2 Delivery Device POC PEEP POC Pressure Suppt Sodium 141 Potassium 4.8 Chloride 111 H Carbon Dioxide 24.0 Anion Gap 6 BUN 107 H* Creatinine 3.62 H Estim Creat Clear Calc 17.06 Est GFR (MDRD) Af Amer 21 L Est GFR (MDRD) Non-Af 18 L BUN/Creatinine Ratio 29.6 H Glucose 134 H Calcium 8.6 Total Bilirubin 0.30 AST 29 ALT 46 Alkaline Phosphatase 106 Total Protein 7.9 Albumin 2.1 L Globulin 5.8 H Albumin/Globulin Ratio 0.4 L POC Glucose 124 H 122 H Blood Type 03/23/20 03/24/20 03/24/20 20:10 03:15 03:15 WBC 10.8 RBC 2.35 L Hgb 8.5 L Hct 28.1 L MCV 119.6 H MCH 36.2 H MCHC 30.2 L RDW Std Deviation 83.2 H RDW Coeff of Reggie 18.8 H Plt Count 305 MPV 10.7 Immature Gran % (Auto) 0.600 Neut % (Auto) 93.3 H Lymph % (Auto) 2.6 L [place] % (Auto) 3.4 Eos % (Auto) 0.0 Baso % (Auto) 0.1 Absolute Neuts (auto) 10.1 H Absolute Lymphs (auto) 0.28 L Nucleated RBC % 0.4 Differential Comment SCANNED Target Cells RARE Specimen Type Sample Site pH Bicarbonate Actual Total CO2 Base Excess O2 Saturation O2 % ABG pCO2 ABG pO2 Respiration Rate O2 Delivery Device POC PEEP POC Pressure Suppt Sodium 141 Potassium 4.8 Chloride 112 H Carbon Dioxide 23.0 Anion Gap 6 BUN 124 H* Creatinine 4.05 H Estim Creat Clear Calc 15.25 Est GFR (MDRD) Af Amer 19 L Est GFR (MDRD) Non-Af 15 L BUN/Creatinine Ratio 30.6 H Glucose 121 H Calcium 8.3 L Total Bilirubin 0.30 AST 33 ALT 44 Alkaline Phosphatase 93 Total Protein 7.1 Albumin 2.0 L Globulin 5.1 H Albumin/Globulin Ratio 0.4 L POC Glucose 148 H Blood Type Microbiology 03/22/20 00:20 Urine Catheter - Garcia Legionella Antigen - Final 03/22/20 00:20 Urine Catheter - Garcia Streptococcus pneumoniae Antigen (M - Final Clinical Impression(s) from Imaging Studies Chest X-Ray 03/14/20 09:05 IMPRESSION: Lingular consolidation. Radiographic follow-up is recommended. Electronically Signed: Shen Juwan, at 9:46 EST , Service support , Chest X-Ray 03/15/20 15:40 IMPRESSION: 1. No change in lingular pneumonia. 2. Poor inspiration with some bibasilar atelectasis per Electronically Signed: Jorgito Enamorado MD at 16:15 EST Tel , Service support , Chest X-Ray 03/16/20 01:49 IMPRESSION: Ill-defined subpleural groundglass opacities are seen more prominent in the lung lingula, may represent atypical pneumonia or viral pneumonia (COVID-19 ?). Electronically Signed: Dereck Rojo, at 3:31 EST Tel , Service support , Chest X-Ray 03/16/20 14:33 IMPRESSION: Interval placement of right internal jugular deep venous line with tip of the catheter overlying the right brachiocephalic vein and no pneumothorax. Electronically Signed: Jorgito Enamorado MD at 15:05 EST Tel , Service support , Chest X-Ray 03/16/20 15:03 IMPRESSION: 1. Interval placement of endotracheal tube with the tip approximately 2 cm above the osmany. 2. Interval placement of nasogastric tube with the tip below the diaphragm. 3. Right internal jugular deep venous line which is unchanged. 4. No change in left lower lobe pneumonia per Electronically Signed: Jorgito Enamorado MD at 15:34 EST Tel , Service support , Medical Necessity - Tobacco Use Smoking Status: Current every day smoker Assessment/Plan All Active Problems (Last Reviewed 03/10/20 @ 13:[address] Micky Mauro MD) Sepsis due to pneumonia (Acute) Acute kidney injury (Acute) Hypoxemia (Acute) Elevated troponin (Acute) COVID-19 (Acute) Elevated INR (Resolved) Skin tear of left elbow without complication (Resolved) RECOMMENDATIONS: 1. Continue beta-cyndi and amiodarone. 2. Continue antimicrobials per infectious diseases recommendations. 3. Continue Decadron 6 mg daily x10 days. 4. Continue BiPAP nightly and with naps. 5. Continue Eliquis. 6. Will defer decision for dialysis to nephrology and patient. IMPRESSIONS: 1. Acute hypoxemic respiratory failure Likely multifactorial in etiology with community-acquired and COVID-19 pneumonia contributing, along with atrial fibrillation with rapid ventricular rate. The patient is currently on appropriate antimicrobials, with infectious diseases following. The patient did receive convalescent plasma. Continue Decadron as ordered. The patient would not be a remdesivir candidate given his underlying renal function. Continue to wean supplemental oxygen to maintain saturations at or above 90%. Encourage incentive spirometer use and mobilize patient as tolerated. 2. Distributive shock Resolved. Again, likely multifactorial in etiology with underlying sepsis and hemodynamic impacts of opiate pain medications contributing. At this time, the patient has been weaned from continuous Levophed support. He remains hemodynamically stable. Dilaudid has been discontinued. 3. Acute kidney injury on CKD stage IV Clinical concern for ischemic ATN in the setting of septic shock. Nephrology is currently following. Continue current supportive measures. The patient may require dialysis support in the next 24 hours. 4. History of A. fib/flutter with RVR/cardiomyopathy The patient is followed by Dr. Mauro as an outpatient. Will plan to continue beta-blockade and amiodarone as ordered. 5. History of DVT/PE on Eliquis Continue Eliquis per outpatient medication regimen. 6. Hypertension/hyperlipidemia/history of non-Hodgkin's lymphoma status post splenectomy Complicates care, management, recovery and prognosis. Physical therapy to work with the patient. CODE status: Discussed CODE status at length including difference between FULL code, DNR-CCA and DNR-CC status. Following discussions about the differences in these status, patient requested DNR CCA/DNI CODE STATUS. This note was generated with [employer] dictation software. It may contain incorrect words, spelling, and punctuation that were not noted in checking the note before signing. Inpatient E&M: 13844 Subs Hosp L3
--- NOTE | 2020-03-24 07:26 | PN_ITS ---
Patient Problems: Active and Suspected Problems (Last Reviewed 03/10/20 @ 13:[address] Micky Mauro MD) Sepsis due to pneumonia (Acute) Acute kidney injury (Acute) Hypoxemia (Acute) Elevated troponin (Acute) COVID-19 (Acute) Reason for Visit: Acute hypoxic respiratory failure Acute COVID-19 pneumonitis MRSA pneumonia Subjective: 03/24/2020 -Patient CODE STATUS was changed from full code to DNR CCA no intubation after a virtual family meeting - Patient seen in the ICU has worsening azotemia with BUN up to 124. Did discuss with patient and nephrology about possibly initiating dialysis patient was of a discussion with the prior to arriving at the decision Objective: GENERAL: on BiPAP HEENT: Atraumatic; EYES; Anicteric, Normal Conjunctiva NECK; supple, normal thyroid, RESPIRATORY: Diminished to auscultation CARDIOVASCULAR: Irregular S1-S2 tachycardic GI: soft, normoactive bowel sounds, : No Renal angle tenderness; EXTREMITIES: No edema, no clubbing, MUSCULOSKELETAL: no muscle waisting NEURO: Awake; no lateralizing signs. SKIN: No Rash PSYCH; Flat affect Vitals/I&O's: Vital Signs Temp Pulse Resp BP Pulse Ox 97.3 F L 112 H 22 H 113/88 H 99 03/24/20 06:00 03/24/20 06:00 03/24/20 06:00 03/24/20 06:00 03/24/20 06:00 Oxygen Flow Rate (L/min) 3 Oxygen Delivery Method Bi-pap Weight: 112.4 kg Body Mass Index (BMI) 35.3 Intake and Output for Last 24 Hours 03/22/20 03/23/20 03/24/20 23:59 23:59 23:59 Intake Total 640 / 640 1767.05 / 1767.05 321.25 / 321.25 Output Total 720 / 720 205 / 205 100 / 100 Balance -80 / -80 1562.05 / 1562.05 221.25 / 221.25 Microbiology Past 72 Hours 03/22/20 00:20 Urine Catheter - Garcia Legionella Antigen - Final 03/22/20 00:20 Urine Catheter - Garcia Streptococcus pneumoniae Antigen (M - Final 03/21/20 20:00 Mucosa - Nasopharyngeal - Final Laboratory Results 03/23/20 13:24: POC Glucose 124 H 03/23/20 17:48: POC Glucose 122 H 03/23/20 20:10: POC Glucose 148 H 03/24/20 03:15: WBC 10.8, RBC 2.35 L, Hgb 8.5 L, Hct 28.1 L, MCV 119.6 H, MCH 36.2 H, MCHC 30.2 L, RDW Std Deviation 83.2 H, RDW Coeff of Reggie 18.8 H, Plt Count 305, MPV 10.7, Immature Gran % (Auto) 0.600, Neut % (Auto) 93.3 H, Lymph % (Auto) 2.6 L, [place] % (Auto) 3.4, Eos % (Auto) 0.0, Baso % (Auto) 0.1, Absolute Neuts (auto) 10.1 H, Absolute Lymphs (auto) 0.28 L, Nucleated RBC % 0.4, Differential Comment SCANNED, Target Cells RARE 03/24/20 03:15: Sodium 141, Potassium 4.8, Chloride 112 H, Carbon Dioxide 23.0, Anion Gap 6, BUN 124 H*, Creatinine 4.05 H, Estim Creat Clear Calc 15.25, Est GFR (MDRD) Af Amer 19 L, Est GFR (MDRD) Non-Af 15 L, BUN/Creatinine Ratio 30.6 H , Glucose 121 H, Calcium 8.3 L, Total Bilirubin 0.30, AST 33, ALT 44, Alkaline Phosphatase 93, Total Protein 7.1, Albumin 2.0 L, Globulin 5.1 H, Albumin/Globulin Ratio 0.4 L Current Medications Acetaminophen (Acetaminophen 325 Mg Tablet) 650 mg PO Q6H PRN PRN PRN Reason: Pain Score 1-10/Temp > 100.7 F Last Admin: 03/24/20 03:09 Dose: 650 mg Documented by: Albuterol Sulfate (Albuterol 2.5 Mg/3 Ml Vial.Neb.) 2.5 mg INHALATION Q2H PRN PRN PRN Reason: DYSPNEA Amiodarone HCl (Amiodarone 200 Mg Tablet) 200 mg PO BID [facility] Last Admin: 03/23/20 20:16 Dose: 200 mg Documented by: Apixaban (Apixaban 5 Mg Tablet) 5 mg PO BID [facility] Last Admin: 03/23/20 20:16 Dose: 5 mg Documented by: Atorvastatin Calcium (Atorvastatin Calcium 20 Mg Tablet) 20 mg PO QHS [facility] Last Admin: 03/23/20 20:16 Dose: 20 mg Documented by: Calamine/Phenol (Menthol/Lanolin/Calamine/Znox 113 Gm Tube) 1 applic TOPICAL TID [facility]; Protocol Last Admin: 03/24/20 03:09 Dose: 1 applicatio Documented by: Dexamethasone Sodium Phosphate (Dexamethasone 4 Mg/Ml Vial) 6 mg IV DAILY [facility] Stop: 03/30/20 10:01 Last Admin: 03/23/20 13:29 Dose: 6 mg Documented by: Gabapentin (Gabapentin 600 Mg Tablet) 600 mg PO QHS [facility] Last Admin: 03/23/20 20:16 Dose: 600 mg Documented by: Gabapentin (Gabapentin 300 Mg Capsule) 300 mg PO DAILY [facility] Last Admin: 03/23/20 13:32 Dose: 300 mg Documented by: Ceftriaxone Sodium 2 gm/ (Sodium Chloride) 50 mls @ 100 mls/hr IV Q24H [facility] Last Infusion: 03/23/20 14:22 Dose: Infused Documented by: Sodium Chloride () 250 mls @ 15 mls/hr IV .[id number] PRN PRN Reason: Saline Flush Last Infusion: 03/24/20 03:00 Dose: 0 mls/hr Documented by: Sodium Chloride () 250 mls @ 15 mls/hr IV .[id number] PRN PRN Reason: Additional IVPB Infusion Norepinephrine Bitartrate 8 mg (/ Sodium Chloride) 250 mls @ 5.625 mls/hr CONT INF .[id number] [facility]; Protocol Last Titration: 03/23/20 17:30 Dose: 0 mcg/min, 0 mls/hr Documented by: Insulin Human Lispro (Insulin Lispro 100 Unit/Ml Insuln.Pen) 0 unit SC ACHS [facility]; Protocol Last Admin: 03/23/20 20:17 Dose: Not Given Documented by: L-Arginine/L-Glutamine/Calcium HMB (Jackson (Unflavored) Packet) 1 packet PO BIDCM [facility] Last Admin: 03/23/20 20:13 Dose: 1 packet Documented by: Lidocaine HCl (Lidocaine Jelly 2% Tube 30 Ml) 0.25 tube TOPICAL TID [facility]; Protocol Last Admin: 03/24/20 03:10 Dose: 0.25 tube Documented by: Linezolid (Linezolid 600 Mg Tablet) 600 mg PO BID [facility] Last Admin: 03/23/20 20:21 Dose: 600 mg Documented by: Magnesium Chloride (Magnesium Chloride 64 Mg Delay Rel.Tablet) 128 mg PO DAILY@0800 [facility] Last Admin: 03/23/20 13:29 Dose: 128 mg Documented by: Metoprolol Succinate (Metoprolol(Xl)Succ 50 Mg Tablet) 50 mg PO DAILY [facility] Last Admin: 03/23/20 13:44 Dose: Not Given Documented by: Ondansetron HCl (Ondansetron 4 Mg/2 Ml Vial) 4 mg IV Q8H PRN PRN PRN Reason: NAUSEA/VOMITING Pantoprazole Sodium (Pantoprazole Sodium 20 Mg Tablet) 20 mg PO BID [facility] Last Admin: 03/23/20 20:16 Dose: 20 mg Documented by: Sodium Chloride (0.9% Saline Lock 10 Ml Syringe) 10 - 40 ml IV UD PRN PRN Reason: SALINE FLUSH Last Admin: 03/24/20 03:09 Dose: 20 ml Documented by: STROKE Vital Signs/Narrative: Vital Signs Temp Pulse Resp BP Pulse Ox 03/24/20 06:00 97.3 F L 112 H 22 H 113/88 H 99 03/24/20 05:00 97.4 F L 97 16 93/57 L 99 03/24/20 04:05 114 H 18 99 03/24/20 04:00 97.5 F L 98 18 99/69 98 03/24/20 03:40 98 Medical Necessity - Tobacco Use Smoking Status: Current every day smoker Assessment/Plan All Active Problems (Last Reviewed 03/10/20 @ 13:[address] Micky Mauro MD) Sepsis due to pneumonia (Acute) Acute kidney injury (Acute) Hypoxemia (Acute) Elevated troponin (Acute) COVID-19 (Acute) Elevated INR (Resolved) Skin tear of left elbow without complication (Resolved) Patient is a 74-year-old gentleman admitted with progressive shortness of breath and assessment of septic shock and acute hypoxic respiratory failure secondary to pneumonia made 1. Septic shock -secondary to MRSA pneumonia septic shock now resolved -03/22/2020; repeat lactic acid came back wnl 2. Acute hypoxic hypercapnic respiratory failure ?Patient was initially managed on the vent extubated on 03/19/2020 -03/22/2020 Patient was transferred to the intensive care unit following deterioration in his clinical condition. ABGs obtained demonstrated respiratory acidosis with hypercapnia placed on noninvasive ventilation?BiPAP. Patient was also found to be slightly hypotensive resuscitated with IV fluids. His kidney function has since worsened -03/23/2020 patient was found to be significantly lethargic the day prior. He also went into A. fib with RVR necessitating increasing dose of his amiodarone. Patient was placed on noninvasive ventilation BiPAP due to significant hypercapnia with subsequent lethargy. Patient remains on BiPAP. Had a discussion with patient's regarding his current condition. Patient will have a discussion with the via FaceTime and decide on his CODE STATUS. -03/24/2020. Patient CODE STATUS was changed from full code to DNR CCA no intubation after a virtual family meeting patient weaned off from noninvasive ventilation BiPAP down to nasal cannula 3. MRSA pneumonia ?Patient managed with Zyvox as stated above presented with septic shock and acute hypoxic respiratory failure 4. COVID-19 pneumonitis ?Diagnosed after almost a week of hospital stay. Consult placed to ID. Patient started on Decadron -03/23/2020: Patient was seen in consultation by ID patient did receive convalescent plasma. Already on Decadron 5. Acute kidney injury superimposed on chronic kidney disease stage III ?This was attributed to ischemic ATN related to septic shock. Nephrology on board following -03/23/2020; patient kidney function continues to worsen --03/24/2020 patient seen in the ICU has worsening azotemia with BUN up to 124. Did discuss with patient and nephrology about possibly initiating dialysis patient was of a discussion with the prior to arriving at the decision 6. Paroxysmal A. fib ?Rate controlled on systemic anticoagulation with Eliquis rate controlled with amiodarone and beta-blockers -03/23/2020. Patient went into A. fib with RVR his amiodarone dose increased 7. Hypertension - Blood pressure controlled, home medications continued with dose adjustment as needed 8. Non healing surgical wound involving his back ?Consult placed to wound care nurse 9. Morbid obesity - With a BMI of 37 patient was counseled on weight reduction 10. GERD ?On PPI 11. Dyslipidemia -Patient is on statin therapy, continued at home dose 12. Chronic alcoholic cirrhosis ?Patient is on lactulose and Lasix held in view of patient presenting complaints 13. Anemia - Secondary to chronic disorder monitoring H&H and transfuse if patient becomes symptomatic or hemoglobin falls below 7 14. History of previous venous thromboembolism (PE/DVT) ?Patient is on Eliquis 15. Physical deconditioning - Requested for PT OT eval and pediatric social worker to assist with discharge planning 16. Chronic pain syndrome ?Patient was high doses of dilaudid; doses adjusted 17. DVT prophylaxis ?Eliquis Advance planning; Had a discussion with patient's regarding his current clinical condition plan is for family meeting via [facility] to decide CODE STATUS patient elected to change his CODE STATUS from full code to DNR CCA no intubation order was placed. Time spent on discussion 18 minutes. Inpatient E&M: 75356 Subs Hosp L3 Procedures: 25011 Advncd Care Plan 30 Min
[2020-03-24] MEDS: Juven (unflavored) Packet 1 PACKET PO ×2 (08:39→16:55)
[2020-03-24] MEDS: APIXABAN 5 MG TABLET PO ×2 (08:40→22:51)
[2020-03-24] MEDS: Gabapentin 300 MG Capsule PO (08:40)
[2020-03-24] MEDS: Magnesium Chloride 64 MG Delay Rel.Tablet 128 MG PO (08:40)
[2020-03-24] MEDS: Amiodarone 200 MG Tablet PO ×2 (08:40→22:50)
[2020-03-24] MEDS: Linezolid 600 MG Tablet PO ×2 (08:41→22:51)
[2020-03-24] MEDS: Metoprolol(XL)Succ 50 MG Tablet PO (08:41)
[2020-03-24] MEDS: Pantoprazole Sodium 20 MG Tablet PO ×2 (08:41→22:51)
[2020-03-24] MEDS: dexAMETHasone 4 MG/ML Vial 6 MG IV (08:41)
--- NOTE | 2020-03-24 10:05 | PN.RENAL_ITS ---
Patient Problems: Active and Suspected Problems (Last Reviewed 03/10/20 @ 13:[address] Micky Mauro MD) Sepsis due to pneumonia (Acute) Acute kidney injury (Acute) Hypoxemia (Acute) Elevated troponin (Acute) COVID-19 (Acute) Subjective: talked to the patient over phone regarding starting HD. 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 on NC No nausea No vomiting - Physical Exam Vitals/I&O's: Vital Signs Temp Pulse Resp BP Pulse Ox 97.4 F L 110 H 22 H 111/47 L 98 03/24/20 09:00 03/24/20 09:00 03/24/20 09:00 03/24/20 09:00 03/24/20 09:00 Oxygen Flow Rate (L/min) 3 Oxygen Delivery Method Nasal Cannula Weight: 112.4 kg Body Mass Index (BMI) 35.3 Intake and Output for Last 24 Hours 03/22/20 03/23/20 03/24/20 23:59 23:59 23:59 Intake Total 640 / 640 1767.05 / 1767.05 621.25 / 621.25 Output Total 720 / 720 205 / 205 100 / 100 Balance -80 / -80 1562.05 / 1562.05 521.25 / 521.25 Comment: Patient was not examined to limit exposure to COVID-19 infection Microbiology Past 72 Hours 03/22/20 00:20 Urine Catheter - Garcia Urine Culture - Final Culture exhibits no growth. 03/22/20 00:20 Urine Catheter - Garcia Legionella Antigen - Final 03/22/20 00:20 Urine Catheter - Garcia Streptococcus pneumoniae Antigen (M - Final 03/21/20 23:05 Blood Culture (Wb) - No Site/Description Given Blood Culture - Preliminary No growth in 48 hours. 03/21/20 23:55 Blood Culture (Wb) - No Site/Description Given Blood Culture - Preliminary No growth in 48 hours. 03/21/20 20:00 Mucosa - Nasopharyngeal - Final Laboratory Results 03/23/20 13:24: POC Glucose 124 H 03/23/20 17:48: POC Glucose 122 H 03/23/20 20:10: POC Glucose 148 H 03/24/20 03:15: WBC 10.8, RBC 2.35 L, Hgb 8.5 L, Hct 28.1 L, MCV 119.6 H, MCH 36.2 H, MCHC 30.2 L, RDW Std Deviation 83.2 H, RDW Coeff of Reggie 18.8 H, Plt Count 305, MPV 10.7, Immature Gran % (Auto) 0.600, Neut % (Auto) 93.3 H, Lymph % (Auto) 2.6 L, [place] % (Auto) 3.4, Eos % (Auto) 0.0, Baso % (Auto) 0.1, Absolute Neuts (auto) 10.1 H, Absolute Lymphs (auto) 0.28 L, Nucleated RBC % 0.4, Differential Comment SCANNED, Target Cells RARE 03/24/20 03:15: Sodium 141, Potassium 4.8, Chloride 112 H, Carbon Dioxide 23.0, Anion Gap 6, BUN 124 H*, Creatinine 4.05 H, Estim Creat Clear Calc 15.25, Est GFR (MDRD) Af Amer 19 L, Est GFR (MDRD) Non-Af 15 L, BUN/Creatinine Ratio 30.6 H , Glucose 121 H, Calcium 8.3 L, Total Bilirubin 0.30, AST 33, ALT 44, Alkaline Phosphatase 93, Total Protein 7.1, Albumin 2.0 L, Globulin 5.1 H, Albumin/Globulin Ratio 0.4 L Current Medications Acetaminophen (Acetaminophen 325 Mg Tablet) 650 mg PO Q6H PRN PRN PRN Reason: Pain Score 1-10/Temp > 100.7 F Last Admin: 03/24/20 03:09 Dose: 650 mg Documented by: Albuterol Sulfate (Albuterol 2.5 Mg/3 Ml Vial.Neb.) 2.5 mg INHALATION Q2H PRN PRN PRN Reason: DYSPNEA Amiodarone HCl (Amiodarone 200 Mg Tablet) 200 mg PO BID [facility] Last Admin: 03/24/20 08:40 Dose: 200 mg Documented by: Apixaban (Apixaban 5 Mg Tablet) 5 mg PO BID [facility] Last Admin: 03/24/20 08:40 Dose: 5 mg Documented by: Atorvastatin Calcium (Atorvastatin Calcium 20 Mg Tablet) 20 mg PO QHS [facility] Last Admin: 03/23/20 20:16 Dose: 20 mg Documented by: Calamine/Phenol (Menthol/Lanolin/Calamine/Znox 113 Gm Tube) 1 applic TOPICAL TID [facility]; Protocol Last Admin: 03/24/20 03:09 Dose: 1 applicatio Documented by: Dexamethasone Sodium Phosphate (Dexamethasone 4 Mg/Ml Vial) 6 mg IV DAILY [facility] Stop: 03/30/20 10:01 Last Admin: 03/24/20 08:41 Dose: 6 mg Documented by: Furosemide (Furosemide 100 Mg/10 Ml Vial) 80 mg IV X1 ONE Stop: 03/24/20 10:01 Gabapentin (Gabapentin 600 Mg Tablet) 600 mg PO QHS [facility] Last Admin: 03/23/20 20:16 Dose: 600 mg Documented by: Gabapentin (Gabapentin 300 Mg Capsule) 300 mg PO DAILY [facility] Last Admin: 03/24/20 08:40 Dose: 300 mg Documented by: Sodium Chloride () 250 mls @ 15 mls/hr IV .[id number] PRN PRN Reason: Saline Flush Last Infusion: 03/24/20 03:00 Dose: 0 mls/hr Documented by: Sodium Chloride () 250 mls @ 15 mls/hr IV .[id number] PRN PRN Reason: Additional IVPB Infusion Insulin Human Lispro (Insulin Lispro 100 Unit/Ml Insuln.Pen) 0 unit SC ACHS [facility]; Protocol Last Admin: 03/24/20 08:37 Dose: Not Given Documented by: L-Arginine/L-Glutamine/Calcium HMB ([place] ([facility]fl[facility]) [facility] Last Admin: 03/24/20 08:39 Dose: 1 packet Documented by: Lidocaine HCl (Lidocaine Jelly 2% Tube 30 Ml) 0.25 tube TOPICAL TID [facility]; Protocol Last Admin: 03/24/20 03:10 Dose: 0.25 tube Documented by: Linezolid (Linezolid 600 Mg Tablet) 600 mg PO BID [facility] Last Admin: 03/24/20 08:41 Dose: 600 mg Documented by: Magnesium Chloride (Magnesium Chloride 64 Mg Delay Rel.Tablet) 128 mg PO DAILY@0800 [facility] Last Admin: 03/24/20 08:40 Dose: 128 mg Documented by: Metoprolol Succinate (Metoprolol(Xl)Succ 50 Mg Tablet) 50 mg PO DAILY [facility] Last Admin: 03/24/20 08:41 Dose: 50 mg Documented by: Ondansetron HCl (Ondansetron 4 Mg/2 Ml Vial) 4 mg IV Q8H PRN PRN PRN Reason: NAUSEA/VOMITING Pantoprazole Sodium (Pantoprazole Sodium 20 Mg Tablet) 20 mg PO BID [facility] Last Admin: 03/24/20 08:41 Dose: 20 mg Documented by: Sodium Chloride (0.9% Saline Lock 10 Ml Syringe) 10 - 40 ml IV UD PRN PRN Reason: SALINE FLUSH Last Admin: 03/24/20 08:44 Dose: 10 ml Documented by: Medical Necessity - Tobacco Use Smoking Status: Current every day smoker Assessment/Plan All Active Problems (Last Reviewed 03/10/20 @ 13:[address] Micky Mauro MD) Sepsis due to pneumonia (Acute) Acute kidney injury (Acute) Hypoxemia (Acute) Elevated troponin (Acute) COVID-19 (Acute) Elevated INR (Resolved) Skin tear of left elbow without complication (Resolved) 1. Acute kidney injury on chronic kidney disease stage 3. Baseline SCr has been around 1.8 mg/dL. BRIANA is due to ischemic ATN related to septic shock. BRIANA improved but patient has been experiencing 2nd BRIANA likely from ATN again related to septic shock/COVID-19 infection Cr and BUN are rising.BUN > 120. Cr up to 4.0. Oliguric LICENSE ISSUER is indicated. waiting for his final decision after discussing with his Will give lasix 80 mg IV one time Keep MAP >65 Monitor RFP and UOP 2- Septic shock.Improved. off levophed ID is following for Abx 3- COVID-19 infection with hypoxia. On dexamethasone On NC this am will aim for UF 2 L with HD session if he agrees d/w Dr. Mendes and Dr. Reed Please call if any question at [phone]
[2020-03-24] MEDS: Furosemide 100 MG/10 ML Vial 80 MG IV (10:30)
[2020-03-24] MEDS: Insulin Lispro 100 UNIT/ML INSULN.PEN SC ×2 (10:33→16:54)
[2020-03-24 11:03] LABS: International Normalized Ratio 2.1; Prothrombin Time (Protime)PT. 22.7 SECONDS (11.7-14.9)
--- NOTE | 2020-03-24 11:12 | PCM.PN.ID ---
Patient Problems: Active and Suspected Problems (Last Reviewed 03/10/20 @ 13:[address] Micky Mauro MD) Sepsis due to pneumonia (Acute) Acute kidney injury (Acute) Hypoxemia (Acute) Elevated troponin (Acute) COVID-19 (Acute) Subjective: Feeling ok, started HD, no fever - Physical Exam Vitals/I&O's: Vital Signs Temp Pulse Resp BP Pulse Ox 97.8 F 116 H 20 H 119/65 95 03/24/20 11:00 03/24/20 11:00 03/24/20 11:00 03/24/20 11:00 03/24/20 11:00 Oxygen Flow Rate (L/min) 3 Oxygen Delivery Method Nasal Cannula Weight: 112.4 kg Body Mass Index (BMI) 35.3 Intake and Output for Last 24 Hours 03/22/20 03/23/20 03/24/20 23:59 23:59 23:59 Intake Total 640 / 640 1767.05 / 1767.05 621.25 / 621.25 Output Total 720 / 720 205 / 205 100 / 100 Balance -80 / -80 1562.05 / 1562.05 521.25 / 521.25 General: Alert, Cooperative, No apparent distress Lungs: Diminished Cardiovascular: Tachycardic Abdomen: Soft, Non Tender, Non-Distended Skin: No rashes Microbiology Past 72 Hours 03/22/20 00:20 Urine Catheter - Garcia Urine Culture - Final Culture exhibits no growth. 03/22/20 00:20 Urine Catheter - Garcia Legionella Antigen - Final 03/22/20 00:20 Urine Catheter - Garcia Streptococcus pneumoniae Antigen (M - Final 03/21/20 23:05 Blood Culture (Wb) - No Site/Description Given Blood Culture - Preliminary No growth in 48 hours. 03/21/20 23:55 Blood Culture (Wb) - No Site/Description Given Blood Culture - Preliminary No growth in 48 hours. 03/21/20 20:00 Mucosa - Nasopharyngeal - Final Laboratory Results 03/23/20 13:24: POC Glucose 124 H 03/23/20 17:48: POC Glucose 122 H 03/23/20 20:10: POC Glucose 148 H 03/24/20 03:15: WBC 10.8, RBC 2.35 L, Hgb 8.5 L, Hct 28.1 L, MCV 119.6 H, MCH 36.2 H, MCHC 30.2 L, RDW Std Deviation 83.2 H, RDW Coeff of Reggie 18.8 H, Plt Count 305, MPV 10.7, Immature Gran % (Auto) 0.600, Neut % (Auto) 93.3 H, Lymph % (Auto) 2.6 L, [place] % (Auto) 3.4, Eos % (Auto) 0.0, Baso % (Auto) 0.1, Absolute Neuts (auto) 10.1 H, Absolute Lymphs (auto) 0.28 L, Nucleated RBC % 0.4, Differential Comment SCANNED, Target Cells RARE 03/24/20 03:15: Sodium 141, Potassium 4.8, Chloride 112 H, Carbon Dioxide 23.0, Anion Gap 6, BUN 124 H*, Creatinine 4.05 H, Estim Creat Clear Calc 15.25, Est GFR (MDRD) Af Amer 19 L, Est GFR (MDRD) Non-Af 15 L, BUN/Creatinine Ratio 30.6 H, Glucose 121 H, Calcium 8.3 L, Total Bilirubin 0.30, AST 33, ALT 44, Alkaline Phosphatase 93, Total Protein 7.1, Albumin 2.0 L, Globulin 5.1 H, Albumin/Globulin Ratio 0.4 L 03/24/20 10:30: PT 22.7 H, INR 2.1 Current Medications Acetaminophen (Acetaminophen 325 Mg Tablet) 650 mg PO Q6H PRN PRN PRN Reason: Pain Score 1-10/Temp > 100.7 F Last Admin: 03/24/20 03:09 Dose: 650 mg Documented by: Albuterol Sulfate (Albuterol 2.5 Mg/3 Ml Vial.Neb.) 2.5 mg INHALATION Q2H PRN PRN PRN Reason: DYSPNEA Amiodarone HCl (Amiodarone 200 Mg Tablet) 200 mg PO BID [facility] Last Admin: 03/24/20 08:40 Dose: 200 mg Documented by: Apixaban (Apixaban 5 Mg Tablet) 5 mg PO BID [facility] Last Admin: 03/24/20 08:40 Dose: 5 mg Documented by: Atorvastatin Calcium (Atorvastatin Calcium 20 Mg Tablet) 20 mg PO QHS [facility] Last Admin: 03/23/20 20:16 Dose: 20 mg Documented by: Calamine/Phenol (Menthol/Lanolin/Calamine/Znox 113 Gm Tube) 1 applic TOPICAL TID [facility]; Protocol Last Admin: 03/24/20 03:09 Dose: 1 applicatio Documented by: Dexamethasone Sodium Phosphate (Dexamethasone 4 Mg/Ml Vial) 6 mg IV DAILY [facility] Stop: 03/30/20 10:01 Last Admin: 03/24/20 08:41 Dose: 6 mg Documented by: Gabapentin (Gabapentin 600 Mg Tablet) 600 mg PO QHS [facility] Last Admin: 03/23/20 20:16 Dose: 600 mg Documented by: Sodium Chloride () 250 mls @ 15 mls/hr IV .[id number] PRN PRN Reason: Saline Flush Last Infusion: 03/24/20 03:00 Dose: 0 mls/hr Documented by: Sodium Chloride () 250 mls @ 15 mls/hr IV .[id number] PRN PRN Reason: Additional IVPB Infusion Insulin Human Lispro (Insulin Lispro 100 Unit/Ml Insuln.Pen) 0 unit SC ACHS [facility]; Protocol Last Admin: 03/24/20 10:33 Dose: 1 u Documented by: L-Arginine/L-Glutamine/Calcium HMB (Jackson (Unflavored) Packet) 1 packet PO BIDCM [facility] Last Admin: 03/24/20 08:39 Dose: 1 packet Documented by: Lidocaine HCl (Lidocaine Jelly 2% Tube 30 Ml) 0.25 tube TOPICAL TID [facility]; Protocol Last Admin: 03/24/20 03:10 Dose: 0.25 tube Documented by: Linezolid (Linezolid 600 Mg Tablet) 600 mg PO BID [facility] Last Admin: 03/24/20 08:41 Dose: 600 mg Documented by: Magnesium Chloride (Magnesium Chloride 64 Mg Delay Rel.Tablet) 128 mg PO DAILY@0800 [facility] Last Admin: 03/24/20 08:40 Dose: 128 mg Documented by: Metoprolol Succinate (Metoprolol(Xl)Succ 50 Mg Tablet) 50 mg PO DAILY [facility] Last Admin: 03/24/20 08:41 Dose: 50 mg Documented by: Ondansetron HCl (Ondansetron 4 Mg/2 Ml Vial) 4 mg IV Q8H PRN PRN PRN Reason: NAUSEA/VOMITING Pantoprazole Sodium (Pantoprazole Sodium 20 Mg Tablet) 20 mg PO BID [facility] Last Admin: 03/24/20 08:41 Dose: 20 mg Documented by: Sodium Chloride (0.9% Saline Lock 10 Ml Syringe) 10 - 40 ml IV UD PRN PRN Reason: SALINE FLUSH Last Admin: 03/24/20 10:37 Dose: 10 ml Documented by: Medical Necessity - Tobacco Use Smoking Status: Current every day smoker Route of nutrition/ use of supplements: [] Nutritional Intake: [] IV Site: [] Garcia Catheter: [] - Assessment/Plan Antibiotics: [] Assessment/Plan: [] Active and Suspected Problems (Last Reviewed 03/10/20 @ 13:[address] Micky Mauro MD) Sepsis due to pneumonia (Acute) Acute kidney injury (Acute) Hypoxemia (Acute) Elevated troponin (Acute) covid with hypoxia and MRSA pneumonia - moved back to icu. Repeat covid (+). On dex. Got plasma 03/22. Feeling better. On 3L NC. Cont linezolid, started 03/19. Ucx neg. UAg neg. Stop ceftriaxone. Started HD. Will follow
[2020-03-24 14:06] LABS: Bedside Glucose 176 mg/dL (70-110)
[2020-03-24 17:10] LABS: Bedside Glucose 157 mg/dL (70-110)
--- NOTE | 2020-03-24 21:05 | NURSING ---
Pt. transferred to [facility] [address] Falk's order.
[2020-03-24] MEDS: Gabapentin 600 MG Tablet PO (22:51)
[2020-03-24] MEDS: Atorvastatin Calcium 20 MG Tablet PO (22:51)
[2020-03-25] VITALS (16 sets, daily range): BP systolic 77–96; BP diastolic 38–61; PULSE 66–122; RESP 18–24; TEMP 35.9–37; O2SAT 92–100
[2020-03-25 00:56] LABS: Bedside Glucose 125 mg/dL (70-110)
[2020-03-25 07:15] LABS: Bedside Glucose 117 mg/dL (70-110)
[2020-03-25 08:01] LABS: Absolute Lymphocyte Count 0.36 X10^3/uL (0.83-4.51); Absolute Neutrophil Count 10.9 X10^3/uL (2.0-7.7); Basophil# 0.01 X10^3/uL; Basophil% 0.1 % (0-1); Hematocrit 34.4 % (40-54); Hemoglobin 9.5 g/dL (13.0-16.5); Lymphocyte # 0.36 X10^3/ul (4.0); Lymphocyte % 2.9 % (19-41); Mean Corp Hgb Conc 27.6 g/dL (32-36); Mean Corpuscular Volume 130.3 fL (80-94); Mean Platelet Vol. 10.7 fl (6.2-12.0); Monocyte# 0.95 X10^3/uL; Monocyte% 7.7 % (0-10); NRBC Flagged by Analyzer 0.6 % (0-5); Neutrophil # 10.88 X10^3/uL (2.7-7.7); Neutrophil % 88.8 % (47-70); POSITIVE DIFFERENTIAL YES; POSITIVE MORPHOLOGY YES; Platelet Count 295 K/mm3 (150-450); RBC Distribution Width CV 19.5 % (11.6-14.6); RBC Distribution Width SD 94.3 fl (35.1-43.9); Red Blood Count 2.64 M/mm3 (4.6-6.2); White Blood Count 12.3 K/mm3 (4.4-11.0)
[2020-03-25 08:07] LABS: ALB/GLOB Ratio 0.4 RATIO (0.9-2.4); AST(SGOT) 33 U/L (15-37); Alanine Aminotransfer ALT/SGPT 45 U/L (16-61); Albumin, Serum 2.2 g/dL (3.2-5.0); Alkaline Phosphatase 90 U/L (45-117); Anion Gap 5 (5-15); BUN 137 mg/dL (7-18); BUN/Creat Ratio 29.1 RATIO (10-20); Calcium,Total 8.4 mg/dL (8.5-10.1); Chloride 115 mmol/L (98-107); EST Glomerular Filtration Rate 13 mL/min (>60); Est Glom Filt Rate - Afr Amer 16 mL/min (>60); Estimated Creatinine Clearance 13.14 ml/min; Globulin 5.2 g/dL (2.2-4.2); Glucose 117 mg/dL (74-106); Potassium 5.6 mmol/L (3.5-5.1); Protein, Total 7.4 g/dL (6.4-8.2); Sodium Level 140 mmol/L (136-145)
[2020-03-25 08:14] LABS: Differential Indicated SCAN CRITERIA MET
[2020-03-25 08:53] LABS: Differential Comment SCANNED; Macrocytosis 3+; Target Cells 1+
[2020-03-25 08:55] LABS: Crenated RBC RARE
--- NOTE | 2020-03-25 10:14 | PCM.PN.REN ---
Patient Problems: Active and Suspected Problems (Last Reviewed 03/10/20 @ 13:[address] Micky Mauro MD) Sepsis due to pneumonia (Acute) Acute kidney injury (Acute) Hypoxemia (Acute) Elevated troponin (Acute) COVID-19 (Acute) Subjective: Patient is confused today d/w patient nurse - Physical Exam Vitals/I&O's: Vital Signs Temp Pulse Resp BP Pulse Ox 97.6 F L 95 20 H 90/45 L 100 03/25/20 08:22 03/25/20 08:22 03/25/20 08:22 03/25/20 08:22 03/25/20 08:22 Oxygen Flow Rate (L/min) 4 Oxygen Delivery Method Nasal Cannula Weight: 112.8 kg Body Mass Index (BMI) 35.3 Intake and Output for Last 24 Hours 03/23/20 03/24/20 03/25/20 23:59 23:59 23:59 Intake Total 1767.05 / 1767.05 1393.25 / 1393.25 0 / 0 Output Total 205 / 205 240 / 240 50 / 50 Balance 1562.05 / 1562.05 1153.25 / 1153.25 -50 / -50 Comment: Patient was not seen or examined to limit expoure to COVID-19 infection Microbiology Past 72 Hours 03/22/20 00:20 Urine Catheter - Garcia Urine Culture - Final Culture exhibits no growth. 03/22/20 00:20 Urine Catheter - Garcia Legionella Antigen - Final 03/22/20 00:20 Urine Catheter - Garcia Streptococcus pneumoniae Antigen (M - Final 03/21/20 23:05 Blood Culture (Wb) - No Site/Description Given Blood Culture - Preliminary No growth in 48 hours. 03/21/20 23:55 Blood Culture (Wb) - No Site/Description Given Blood Culture - Preliminary No growth in 48 hours. Laboratory Results 03/24/20 10:26: POC Glucose 176 H 03/24/20 10:30: PT 22.7 H, INR 2.1 03/24/20 16:52: POC Glucose 157 H 03/24/20 22:44: POC Glucose 125 H 03/25/20 06:55: POC Glucose 117 H 03/25/20 07:32: WBC 12.3 H, RBC 2.64 L, Hgb 9.5 L, Hct 34.4 L, MCV 130.3 H D, MCH 36.0 H, MCHC 27.6 L D, RDW Std Deviation 94.3 H, RDW Coeff of Reggie 19.5 H, Plt Count 295, MPV 10.7, Immature Gran % (Auto) 0.500, Neut % (Auto) 88.8 H, Lymph % (Auto) 2.9 L, Worth % (Auto) 7.7, Eos % (Auto) 0.0, Baso % (Auto) 0.1, Absolute Neuts (auto) 10.9 H, Absolute Lymphs (auto) 0.36 L, Nucleated RBC % 0.6, Differential Comment SCANNED, Macrocytosis 3+, Target Cells 1+, Crenated Cell RARE 03/25/20 07:32: Sodium 140, Potassium 5.6 H, Chloride 115 H, Carbon Dioxide 20.0 L, Anion Gap 5, BUN 137 H*, Creatinine 4.70 H, Estim Creat Clear Calc 13.14, Est GFR (MDRD) Af Amer 16 L, Est GFR (MDRD) Non-Af 13 L, BUN/Creatinine Ratio 29.1 H, Glucose 117 H, Calcium 8.4 L, Total Bilirubin 0.40, AST 33, ALT 45, Alkaline Phosphatase 90, Total Protein 7.4, Albumin 2.2 L, Globulin 5.2 H, Albumin/Globulin Ratio 0.4 L Current Medications Acetaminophen (Acetaminophen 325 Mg Tablet) 650 mg PO Q6H PRN PRN PRN Reason: Pain Score 1-10/Temp > 100.7 F Last Admin: 03/24/20 22:51 Dose: 650 mg Documented by: Albuterol Sulfate (Albuterol 2.5 Mg/3 Ml Vial.Neb.) 2.5 mg INHALATION Q2H PRN PRN PRN Reason: DYSPNEA Amiodarone HCl (Amiodarone 200 Mg Tablet) 200 mg PO BID [facility] Last Admin: 03/24/20 22:50 Dose: 200 mg Documented by: Apixaban (Apixaban 5 Mg Tablet) 5 mg PO BID [facility] Last Admin: 03/24/20 22:51 Dose: 5 mg Documented by: Atorvastatin Calcium (Atorvastatin Calcium 20 Mg Tablet) 20 mg PO QHS [facility] Last Admin: 03/24/20 22:51 Dose: 20 mg Documented by: Calamine/Phenol (Menthol/Lanolin/Calamine/Znox 113 Gm Tube) 1 applic TOPICAL TID [facility]; Protocol Last Admin: 03/25/20 07:03 Dose: Not Given Documented by: Dexamethasone Sodium Phosphate (Dexamethasone 4 Mg/Ml Vial) 6 mg IV DAILY [facility] Stop: 03/30/20 10:01 Last Admin: 03/24/20 08:41 Dose: 6 mg Documented by: Gabapentin (Gabapentin 600 Mg Tablet) 600 mg PO QHS [facility] Last Admin: 03/24/20 22:51 Dose: 600 mg Documented by: Sodium Chloride () 250 mls @ 15 mls/hr IV .[id number] PRN PRN Reason: Saline Flush Last Infusion: 03/24/20 23:29 Dose: Infused Documented by: Sodium Chloride () 250 mls @ 15 mls/hr IV .[id number] PRN PRN Reason: Additional IVPB Infusion Insulin Human Lispro (Insulin Lispro 100 Unit/Ml Insuln.Pen) 0 unit SC ACHS [facility]; Protocol Last Admin: 03/25/20 06:56 Dose: Not Given Documented by: L-Arginine/L-Glutamine/Calcium HMB (Jackson (Unflavored) Packet) 1 packet PO BIDCM [facility] Last Admin: 03/24/20 16:55 Dose: 1 packet Documented by: Lidocaine HCl (Lidocaine Jelly 2% Tube 30 Ml) 0.25 tube TOPICAL TID [facility]; Protocol Last Admin: 03/25/20 07:03 Dose: Not Given Documented by: Linezolid (Linezolid 600 Mg Tablet) 600 mg PO BID [facility] Last Admin: 03/24/20 22:51 Dose: 600 mg Documented by: Magnesium Chloride (Magnesium Chloride 64 Mg Delay Rel.Tablet) 128 mg PO DAILY@0800 [facility] Last Admin: 03/24/20 08:40 Dose: 128 mg Documented by: Metoprolol Succinate (Metoprolol(Xl)Succ 50 Mg Tablet) 50 mg PO DAILY [facility] Last Admin: 03/24/20 08:41 Dose: 50 mg Documented by: Ondansetron HCl (Ondansetron 4 Mg/2 Ml Vial) 4 mg IV Q8H PRN PRN PRN Reason: NAUSEA/VOMITING Pantoprazole Sodium (Pantoprazole Sodium 20 Mg Tablet) 20 mg PO BID [facility] Last Admin: 03/24/20 22:51 Dose: 20 mg Documented by: Sodium Chloride (0.9% Saline Lock 10 Ml Syringe) 10 - 40 ml IV UD PRN PRN Reason: SALINE FLUSH Last Admin: 03/24/20 10:37 Dose: 10 ml Documented by: Medical Necessity - Tobacco Use Smoking Status: Current every day smoker Assessment/Plan All Active Problems (Last Reviewed 03/10/20 @ 13:[address] Micky Mauro MD) Sepsis due to pneumonia (Acute) Acute kidney injury (Acute) Hypoxemia (Acute) Elevated troponin (Acute) COVID-19 (Acute) Elevated INR (Resolved) Skin tear of left elbow without complication (Resolved) 1. Acute kidney injury on chronic kidney disease stage 3. Baseline SCr has been around 1.8 mg/dL. Initial BRIANA was from ischemic ATN related to septic shock. BRIANA improved with increased UOP However, patient had 2nd septic shock with COVID-19 pneumonia which caused 2nd BRIANA likely from ATN Cr and BUN are rising.BUN > 35. Cr up to 4.7. Oliguric [employer] is indicated. d/w with patient's Mrs. Yolanda Marshall who agreed to pursue HD HD today after placing HD access. surgery team to be consulted by the hospitalist service Keep MAP >65 2- Septic shock.Improved. off levophed ID is following for Abx 3- COVID-19 infection with hypoxia. On dexamethasone will aim for UF 2 L with HD session today Please call if any question at [phone]
[2020-03-25] MEDS: Amiodarone 200 MG Tablet PO (11:03)
[2020-03-25] MEDS: Metoprolol(XL)Succ 50 MG Tablet PO (11:03)
[2020-03-25 11:20] LABS: Bedside Glucose 103 mg/dL (70-110)
[2020-03-25] MEDS: dexAMETHasone 4 MG/ML Vial 6 MG IV (11:57)
[2020-03-25] MEDS: 0.9% Saline Lock 10 ML Syringe IV (11:58)
--- NOTE | 2020-03-25 12:08 | PCM.PN.PUL ---
Patient Problems: Active and Suspected Problems (Last Reviewed 03/10/20 @ 13:[address] Micky Mauro MD) Sepsis due to pneumonia (Acute) Acute kidney injury (Acute) Hypoxemia (Acute) Elevated troponin (Acute) COVID-19 (Acute) Subjective: The patient was seen and examined at the bedside this morning. Events from the last 24 hours have been reviewed. The patient is currently afebrile, hemodynamically stable and maintaining appropriate oxygen saturations on 4L/min via nasal cannula. The patient remains on Eliquis, antimicrobials and Decadron. There are plans to proceed with dialysis, given worsening renal insufficiency. Objective: The patient's most recent lab work, culture data and imaging studies have all been personally reviewed. Urine culture dated March 14 was positive for Enterococcus. Sputum culture dated March 16 was positive for MRSA. Coronavirus PCR on March 14 was negative. However, follow-up coronavirus PCR on March 21 was positive. - Physical Exam Vitals/I&O's: Vital Signs Temp Pulse Resp BP Pulse Ox 97.8 F 122 H 18 90/55 L 93 03/25/20 10:58 03/25/20 11:03 03/25/20 10:58 03/25/20 10:58 03/25/20 10:58 Oxygen Flow Rate (L/min) 3.5 Oxygen Delivery Method Nasal Cannula Weight: 248 lb 10.903 oz Body Mass Index (BMI) 35.3 Intake and Output for Last 24 Hours 03/23/20 03/24/20 03/25/20 23:59 23:59 23:59 Intake Total 1767.05 / 1767.05 1393.25 / 1393.25 150 / 150 Output Total 205 / 205 240 / 240 50 / 50 Balance 1562.05 / 1562.05 1153.25 / 1153.25 100 / 100 General: Alert, Confused HEENT: Atraumatic, Normocephalic Oral: No Gingival or Mucosal Lesions/ Ulcerations Neck: Supple, No Nodes, Trachea Midline Lungs: Diminished Cardiovascular: Irregular Rate, Tachycardic Abdomen: Bowel Sounds Present, Soft, Non Tender, Obese Extremities: No clubbing, No cyanosis, Edema Skin: - - No significant change from previous Musculoskeletal: No Muscle Wasting Lymphatic: No Cervical, Supraclavicular, or Inguinal Adenopathy Neurological: Neuro grossly intact Psych/Mental Status: Flat Affect Labs (Last 48 Hours) 03/23/20 03/23/20 03/23/20 13:24 17:48 20:10 WBC RBC Hgb Hct MCV MCH MCHC RDW Std Deviation RDW Coeff of Reggie Plt Count MPV Immature Gran % (Auto) Neut % (Auto) Lymph % (Auto) Lamar % (Auto) Eos % (Auto) Baso % (Auto) Absolute Neuts (auto) Absolute Lymphs (auto) Nucleated RBC % Differential Comment Macrocytosis Target Cells Crenated Cell PT INR Sodium Potassium Chloride Carbon Dioxide Anion Gap BUN Creatinine Estim Creat Clear Calc Est GFR (MDRD) Af Amer Est GFR (MDRD) Non-Af BUN/Creatinine Ratio Glucose Calcium Total Bilirubin AST ALT Alkaline Phosphatase Total Protein Albumin Globulin Albumin/Globulin Ratio POC Glucose 124 H 122 H 148 H 03/24/20 03/24/20 03/24/20 03:15 03:15 10:26 WBC 10.8 RBC 2.35 L Hgb 8.5 L Hct 28.1 L MCV 119.6 H MCH 36.2 H MCHC 30.2 L RDW Std Deviation 83.2 H RDW Coeff of Reggie 18.8 H Plt Count 305 MPV 10.7 Immature Gran % (Auto) 0.600 Neut % (Auto) 93.3 H Lymph % (Auto) 2.6 L Lamar % (Auto) 3.4 Eos % (Auto) 0.0 Baso % (Auto) 0.1 Absolute Neuts (auto) 10.1 H Absolute Lymphs (auto) 0.28 L Nucleated RBC % 0.4 Differential Comment SCANNED Macrocytosis Target Cells RARE Crenated Cell PT INR Sodium 141 Potassium 4.8 Chloride 112 H Carbon Dioxide 23.0 Anion Gap 6 BUN 124 H* Creatinine 4.05 H Estim Creat Clear Calc 15.25 Est GFR (MDRD) Af Amer 19 L Est GFR (MDRD) Non-Af 15 L BUN/Creatinine Ratio 30.6 H Glucose 121 H Calcium 8.3 L Total Bilirubin 0.30 AST 33 ALT 44 Alkaline Phosphatase 93 Total Protein 7.1 Albumin 2.0 L Globulin 5.1 H Albumin/Globulin Ratio 0.4 L POC Glucose 176 H 03/24/20 03/24/20 03/24/20 10:30 16:52 22:44 WBC RBC Hgb Hct MCV MCH MCHC RDW Std Deviation RDW Coeff of Reggie Plt Count MPV Immature Gran % (Auto) Neut % (Auto) Lymph % (Auto) Lamar % (Auto) Eos % (Auto) Baso % (Auto) Absolute Neuts (auto) Absolute Lymphs (auto) Nucleated RBC % Differential Comment Macrocytosis Target Cells Crenated Cell PT 22.7 H INR 2.1 Sodium Potassium Chloride Carbon Dioxide Anion Gap BUN Creatinine Estim Creat Clear Calc Est GFR (MDRD) Af Amer Est GFR (MDRD) Non-Af BUN/Creatinine Ratio Glucose Calcium Total Bilirubin AST ALT Alkaline Phosphatase Total Protein Albumin Globulin Albumin/Globulin Ratio POC Glucose 157 H 125 H 03/25/20 03/25/20 03/25/20 06:55 07:32 07:32 WBC 12.3 H RBC 2.64 L Hgb 9.5 L Hct 34.4 L MCV 130.3 H D MCH 36.0 H MCHC 27.6 L D RDW Std Deviation 94.3 H RDW Coeff of Reggie 19.5 H Plt Count 295 MPV 10.7 Immature Gran % (Auto) 0.500 Neut % (Auto) 88.8 H Lymph % (Auto) 2.9 L Lamar % (Auto) 7.7 Eos % (Auto) 0.0 Baso % (Auto) 0.1 Absolute Neuts (auto) 10.9 H Absolute Lymphs (auto) 0.36 L Nucleated RBC % 0.6 Differential Comment SCANNED Macrocytosis 3+ Target Cells 1+ Crenated Cell RARE PT INR Sodium 140 Potassium 5.6 H Chloride 115 H Carbon Dioxide 20.0 L Anion Gap 5 BUN 137 H* Creatinine 4.70 H Estim Creat Clear Calc 13.14 Est GFR (MDRD) Af Amer 16 L Est GFR (MDRD) Non-Af 13 L BUN/Creatinine Ratio 29.1 H Glucose 117 H Calcium 8.4 L Total Bilirubin 0.40 AST 33 ALT 45 Alkaline Phosphatase 90 Total Protein 7.4 Albumin 2.2 L Globulin 5.2 H Albumin/Globulin Ratio 0.4 L POC Glucose 117 H 03/25/20 11:12 WBC RBC Hgb Hct MCV MCH MCHC RDW Std Deviation RDW Coeff of Reggie Plt Count MPV Immature Gran % (Auto) Neut % (Auto) Lymph % (Auto) Lamar % (Auto) Eos % (Auto) Baso % (Auto) Absolute Neuts (auto) Absolute Lymphs (auto) Nucleated RBC % Differential Comment Macrocytosis Target Cells Crenated Cell PT INR Sodium Potassium Chloride Carbon Dioxide Anion Gap BUN Creatinine Estim Creat Clear Calc Est GFR (MDRD) Af Amer Est GFR (MDRD) Non-Af BUN/Creatinine Ratio Glucose Calcium Total Bilirubin AST ALT Alkaline Phosphatase Total Protein Albumin Globulin Albumin/Globulin Ratio POC Glucose 103 Microbiology 03/24/20 Unknown Sputum, Expectorated/Coughed Gram Stain - Final 03/24/20 Unknown Sputum, Expectorated/Coughed Respiratory Culture - Preliminary Yeast Like Organism 03/22/20 00:20 Urine Catheter - Garcia Urine Culture - Final Culture exhibits no growth. 03/22/20 00:20 Urine Catheter - Garcia Legionella Antigen - Final 03/22/20 00:20 Urine Catheter - Garcia Streptococcus pneumoniae Antigen (M - Final 03/21/20 23:05 Blood Culture (Wb) - No Site/Description Given Blood Culture - Preliminary No growth in 48 hours. 03/21/20 23:55 Blood Culture (Wb) - No Site/Description Given Blood Culture - Preliminary No growth in 48 hours. Clinical Impression(s) from Imaging Studies Chest X-Ray 03/14/20 09:05 IMPRESSION: Lingular consolidation. Radiographic follow-up is recommended. Electronically Signed: Shen Echeverria, at 9:46 EST , Service support , Chest X-Ray 03/15/20 15:40 IMPRESSION: 1. No change in lingular pneumonia. 2. Poor inspiration with some bibasilar atelectasis per Electronically Signed: Jorgito Enamorado MD at 16:15 EST Tel , Service support , Chest X-Ray 03/16/20 01:49 IMPRESSION: Ill-defined subpleural groundglass opacities are seen more prominent in the lung lingula, may represent atypical pneumonia or viral pneumonia (COVID-19 ?). Electronically Signed: Dereck Rojo, at 3:31 EST Tel , Service support , Chest X-Ray 03/16/20 14:33 IMPRESSION: Interval placement of right internal jugular deep venous line with tip of the catheter overlying the right brachiocephalic vein and no pneumothorax. Electronically Signed: Jorgito Enamorado MD at 15:05 EST Tel , Service support , Chest X-Ray 03/16/20 15:03 IMPRESSION: 1. Interval placement of endotracheal tube with the tip approximately 2 cm above the osmany. 2. Interval placement of nasogastric tube with the tip below the diaphragm. 3. Right internal jugular deep venous line which is unchanged. 4. No change in left lower lobe pneumonia per Electronically Signed: Jorgito Enamorado MD at 15:34 EST Tel , Service support , Current Medications Acetaminophen (Acetaminophen 325 Mg Tablet) 650 mg PO Q6H PRN PRN PRN Reason: Pain Score 1-10/Temp > 100.7 F Last Admin: 03/24/20 22:51 Dose: 650 mg Documented by: Albuterol Sulfate (Albuterol 2.5 Mg/3 Ml Vial.Neb.) 2.5 mg INHALATION Q2H PRN PRN PRN Reason: DYSPNEA Amiodarone HCl (Amiodarone 200 Mg Tablet) 200 mg PO BID [facility] Last Admin: 03/25/20 11:03 Dose: 200 mg Documented by: Apixaban (Apixaban 5 Mg Tablet) 5 mg PO BID [facility] Last Admin: 03/25/20 11:23 Dose: Not Given Documented by: Atorvastatin Calcium (Atorvastatin Calcium 20 Mg Tablet) 20 mg PO QHS [facility] Last Admin: 03/24/20 22:51 Dose: 20 mg Documented by: Calamine/Phenol (Menthol/Lanolin/Calamine/Znox 113 Gm Tube) 1 applic TOPICAL TID [facility]; Protocol Last Admin: 03/25/20 07:03 Dose: Not Given Documented by: Dexamethasone Sodium Phosphate (Dexamethasone 4 Mg/Ml Vial) 6 mg IV DAILY [facility] Stop: 03/30/20 10:01 Last Admin: 03/25/20 11:57 Dose: 6 mg Documented by: Gabapentin (Gabapentin 600 Mg Tablet) 600 mg PO QHS [facility] Last Admin: 03/24/20 22:51 Dose: 600 mg Documented by: Sodium Chloride () 250 mls @ 15 mls/hr IV .[id number] PRN PRN Reason: Saline Flush Last Infusion: 03/24/20 23:29 Dose: Infused Documented by: Sodium Chloride () 250 mls @ 15 mls/hr IV .[id number] PRN PRN Reason: Additional IVPB Infusion Insulin Human Lispro (Insulin Lispro 100 Unit/Ml Insuln.Pen) 0 unit SC ACHS [facility]; Protocol Last Admin: 03/25/20 11:23 Dose: Not Given Documented by: L-Arginine/L-Glutamine/Calcium [facility] Last Admin: 03/25/20 11:23 Dose: Not Given Documented by: Lidocaine HCl (Lidocaine Jelly 2% Tube 30 Ml) 0.25 tube TOPICAL TID [facility]; Protocol Last Admin: 03/25/20 07:03 Dose: Not Given Documented by: Linezolid (Linezolid 600 Mg Tablet) 600 mg PO BID [facility] Last Admin: 03/25/20 11:23 Dose: Not Given Documented by: Magnesium Chloride (Magnesium Chloride 64 Mg Delay Rel.Tablet) 128 mg PO DAILY@0800 [facility] Last Admin: 03/25/20 11:23 Dose: Not Given Documented by: Metoprolol Succinate (Metoprolol(Xl)Succ 50 Mg Tablet) 50 mg PO DAILY [facility] Last Admin: 03/25/20 11:03 Dose: 50 mg Documented by: Ondansetron HCl (Ondansetron 4 Mg/2 Ml Vial) 4 mg IV Q8H PRN PRN PRN Reason: NAUSEA/VOMITING Pantoprazole Sodium (Pantoprazole Sodium 20 Mg Tablet) 20 mg PO BID [facility] Last Admin: 03/25/20 11:23 Dose: Not Given Documented by: Sodium Chloride (0.9% Saline Lock 10 Ml Syringe) 10 - 40 ml IV UD PRN PRN Reason: SALINE FLUSH Last Admin: 03/25/20 11:58 Dose: 10 ml Documented by: Medical Necessity - Tobacco Use Smoking Status: Current every day smoker Assessment/Plan All Active Problems (Last Reviewed 03/10/20 @ 13:[address] Micky Mauro MD) Sepsis due to pneumonia (Acute) Acute kidney injury (Acute) Hypoxemia (Acute) Elevated troponin (Acute) COVID-19 (Acute) Elevated INR (Resolved) Skin tear of left elbow without complication (Resolved) RECOMMENDATIONS: 1. Continue beta-cyndi and amiodarone. 2. Continue antimicrobials per infectious diseases recommendations. 3. Continue Decadron 6 mg daily x10 days. 4. Continue BiPAP nightly and with naps. 5. Continue Eliquis. 6. Wean supplemental oxygen to maintain saturations at or above 90%. 7. Plans for hemodialysis per nephrology recommendations. IMPRESSIONS: 1. Acute hypoxemic respiratory failure Likely multifactorial in etiology with community-acquired and COVID-19 pneumonia contributing, along with atrial fibrillation with rapid ventricular rate. The patient is currently on appropriate antimicrobials, with infectious diseases following. The patient did receive convalescent plasma. Continue Decadron as ordered. The patient would not be a remdesivir candidate given his underlying renal function. Continue to wean supplemental oxygen to maintain saturations at or above 90%. Encourage incentive spirometer use and mobilize patient as tolerated. 2. Distributive shock Resolved. Again, likely multifactorial in etiology with underlying sepsis and hemodynamic impacts of opiate pain medications contributing. At this time, the patient has been weaned from continuous Levophed support. He remains hemodynamically stable. Dilaudid has been discontinued. 3. Acute kidney injury on CKD stage IV Clinical concern for ischemic ATN in the setting of septic shock. Nephrology is currently following. Continue current supportive measures. Plan to proceed with temporary hemodialysis catheter placement. 4. History of A. fib/flutter with RVR/cardiomyopathy The patient is followed by Dr. Mauro as an outpatient. Will plan to continue beta-blockade and amiodarone as ordered. 5. History of DVT/PE on Eliquis Continue Eliquis per outpatient medication regimen. 6. Hypertension/hyperlipidemia/history of non-Hodgkin's lymphoma status post splenectomy Complicates care, management, recovery and prognosis. Physical therapy to work with the patient. CODE status: Discussed CODE status at length including difference between FULL code, DNR-CCA and DNR-CC status. Following discussions about the differences in these status, patient requested DNR CCA/DNI CODE STATUS. This note was generated with [employer]ude[employer] software. It may contain incorrect words, spelling, and punctuation that were not noted in checking the note before signing. Inpatient E&M: 89021 Subs Hosp L2
[2020-03-25] MEDS: Acetaminophen 325 MG Tablet 650 MG PO (12:41)
[2020-03-25] MEDS: Menthol/Lanolin/Calamine/Znox 113 GM Tube 1 APPLIC TOPICAL ×2 (13:29→23:25)
--- NOTE | 2020-03-25 13:33 | PCM.CONS.GEN ---
Reason for Consult Date of Consultation: 03/29/20 History of Present Illness: The patient is a 74 year old M With acute on chronic kidney disease. Patient originally came in Covid positive, pneumonia, also had septic shock during this hospitalization.Patient has been having worsening kidney function and was agreeable for dialysis.Currently consent was obtained per the as it was felt the patient may not be able to give consent however when discussing with patient he did state he was agreeable to dialysis and the catheter. Patient's current BNP when is 137 and creatinine is 4.7 Past Medical History Past Medical History (Chronic Problems): Chronic Problems (Last Reviewed 03/10/20 @ 13:[address] Micky Mauro MD) Paroxysmal atrial fibrillation (Chronic) Right ventricular dilation (Chronic) Right ventricular systolic dysfunction (Chronic) Non-ischemic cardiomyopathy (Chronic) PSVT (paroxysmal supraventricular tachycardia) (Chronic) Chronic combined systolic and diastolic CHF (congestive heart failure) (Chronic) Secondary pulmonary arterial hypertension (Chronic) Right bundle branch block (RBBB) (Chronic) Essential (primary) hypertension (Chronic) Hyperlipidemia (Chronic) Hepatic cirrhosis (Chronic) History of non-Hodgkin's lymphoma (Chronic) Hypergammaglobulinemia (Chronic) Iron deficiency anemia (Chronic) Plasma cell dyscrasia (Chronic) EtOH dependence (Chronic) Non-healing surgical wound (Chronic) Open wound of lumbar region with complication (Chronic) h/o osteomyelitis and is chronic nonhealing surgical wound s/p lumbar decompression surgery Recurrent deep vein thrombosis (DVT) (Chronic) Medical History: Medical History (Last Reviewed 03/10/20 @ 13:[address] Micky Mauro MD) Paroxysmal atrial fibrillation (Chronic) I48.0 Right ventricular dilation (Chronic) I51.7 Right ventricular systolic dysfunction (Chronic) I51.9 Non-ischemic cardiomyopathy (Chronic) I42.8 PSVT (paroxysmal supraventricular tachycardia) (Chronic) I47.1 Chronic combined systolic and diastolic CHF (congestive heart failure) (Chronic) I50.42 Secondary pulmonary arterial hypertension (Chronic) I27.21 Right bundle branch block (RBBB) (Chronic) I45.10 Essential (primary) hypertension (Chronic) I10 Hyperlipidemia (Chronic) E78.5 Hepatic cirrhosis (Chronic) K74.60 History of non-Hodgkin's lymphoma (Chronic) Z85.72 Hypergammaglobulinemia (Chronic) D89.2 Iron deficiency anemia (Chronic) D50.9 Plasma cell dyscrasia (Chronic) E88.09 EtOH dependence (Chronic) F10.20 Non-healing surgical wound (Chronic) T81.89XA Open wound of lumbar region with complication (Chronic) S31.000A h/o osteomyelitis and is chronic nonhealing surgical wound s/p lumbar decompression surgery Recurrent deep vein thrombosis (DVT) (Chronic) I82.409 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 G06.1 Acute kidney injury superimposed on chronic kidney disease N17.9, N18.9 Ascites R18.8 Candidal dermatitis B37.2 Cellulitis and abscess of trunk L03.319, L02.219 Chronic kidney disease N18.9 Chronic ulcer of right leg with fat layer exposed L97.912 Contracture, right foot M24.574 Gout M10.9 History of alcohol consumption Z87.898 History of diverticulitis Z87.19 Hyperammonemia E72.20 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 for treatment of lymphoma Low testosterone in male R79.89 Lumbar disc disease M51.9 Lymphedema I89.0 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 of necrosis L98.496 nonhealing ulcer lumbar back area MARY JANE (obstructive sleep apnea) G47.33 Osteomyelitis of lumbar spine M46.26 Peripheral vascular disease I73.9 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 I83.025, L97.529 Venous stasis ulcer of heel with fat layer exposed I83.004, L97.402 Elevated troponin R79.89 History of pulmonary embolus (PE) Onset Date: 2004 Z86.711 Pericardial effusion I31.3 Aortic root dilatation I77.810 Ascending aorta dilatation I77.810 Acute on chronic diastolic (congestive) heart failure (Inactive) I50.33 Acute on chronic systolic (congestive) heart failure (Inactive) I50.23 Edema of lower extremity R60.0 Hepatic encephalopathy K72.90 Pulmonary embolism (Inactive) I26.99 Allergies chlorthalidone Allergy (Verified 03/14/20 07:40) Unknown ramipril [From Altace] Allergy (Verified 03/14/20 07:40) Unknown sulfamethoxazole [From Bactrim] Allergy (Verified 03/14/20 07:40) Other trazodone Allergy (Verified 03/14/20 07:40) Unknown trimethoprim [From Bactrim] Allergy (Verified 03/14/20 07:40) Other prednisone Adverse Reaction (Verified 03/14/20 07:40) Swelling only in big doses Home Medications: Ambulatory Orders Medication Instructions Recorded Folic Acid 1 mg PO DAILY@0800 02/05/16 Magnesium Oxide [Magnesium] 400 mg PO DAILY@0800 02/05/16 Vit C/E/Zn/Coppr/Lutein/Zeaxan 1 ea PO DAILY 07/04/17 [Preservision Areds 2 Softgel] Gabapentin 600 mg PO QHS 02/28/19 Apixaban [Eliquis] 2.5 mg PO BID 04/07/19 Gabapentin [Neurontin] 300 mg PO DAILY 04/21/19 hydromorphone 4 mg tablet 4 - 8 mg PO Q4H PRN tab 05/21/19 atorvastatin 20 mg tablet 20 mg PO QHS #90 tab 08/05/19 multivitamin 1 tab PO DAILY 03/10/20 testosterone cypionate 100 mg/mL 100 mg IM Q2W ml 03/10/20 intramuscular oil Cholecalciferol (VIT D3) [Vitamin 1,000 unit PO DAILY 03/14/20 D] Furosemide 60 mg PO BID 03/14/20 Lactulose [Chronulac, Cephulac] 20 gm PO BID PRN PRN 03/14/20 Metoprolol Succinate 50 mg PO DAILY 03/14/20 Surgical History: Surgical History (Last Reviewed 03/14/20 @ 14:17 by Sena Jackson [employer], [employer]) History of laminectomy Z98.890 History of splenectomy Z90.81 Surgical History: colectomy - Partial., - - Splenectomy, Ileostomy reversal, L4-5 discectomy. Wound debridement 03/04/2017, 05/14/2017 at [facility]> Psychiatric History: No pertinent psych hx Lives: Spouse/ Significant Other Smoking Status: Current every day smoker Alcohol: Occasional - 3 shots of vodka per day usually Drugs: None - *Family History Maternal Family History: Family History (Last Reviewed 03/10/20 @ 13:[address] Micky Mauro MD) Father Diabetes Heart disease Mother Heart disease History Items: Heart Disease Paternal Family History: Family History (Last Reviewed 03/10/20 @ 13:[address] Micky Mauro MD) Father Diabetes Heart disease Mother Heart disease History Items: Diabetes Review of Systems Constitutional: Denies: Fever Cardiovascular: Denies: Chest Pain Respiratory: Reports: Shortness of breath at rest Gastrointestinal: Denies: Abdominal Pain Skin: Denies: Jaundice Psychiatric: Reports: Depression Hematologic/ Lymphatic: Reports: Easy Bruising, Easy Bleeding Patient Problems: Active and Suspected Problems (Last Reviewed 03/10/20 @ 13:[address] Micky Mauro MD) Sepsis due to pneumonia (Acute) Acute kidney injury (Acute) Hypoxemia (Acute) Elevated troponin (Acute) COVID-19 (Acute) - Physical Exam Vitals/I&O's: Vital Signs Temp Pulse Resp BP Pulse Ox 98.6 F 84 20 H 90/60 99 03/25/20 13:26 03/25/20 13:26 03/25/20 13:26 03/25/20 13:26 03/25/20 13:26 Oxygen Flow Rate (L/min) 4 Oxygen Delivery Method Nasal Cannula Weight: 248 lb 10.903 oz Body Mass Index (BMI) 35.3 Intake and Output for Last 24 Hours 03/23/20 03/24/20 03/25/20 23:59 23:59 23:59 Intake Total 1767.05 / 1767.05 1393.25 / 1393.25 150 / 150 Output Total 205 / 205 240 / 240 50 / 50 Balance 1562.05 / 1562.05 1153.25 / 1153.25 100 / 100 General: Alert, No apparent distress Lungs: Normal air movement Cardiovascular: Regular rate Abdomen: Soft, Non Tender, Non-Distended Extremities: No clubbing, No cyanosis Neurological: Cranial nerves II-XII grossly intact Psych/Mental Status: Flat Affect Microbiology Past 72 Hours 03/24/20 Unknown Sputum, Expectorated/Coughed Gram Stain - Final 03/24/20 Unknown Sputum, Expectorated/Coughed Respiratory Culture - Preliminary Yeast Like Organism 03/22/20 00:20 Urine Catheter - Garcia Urine Culture - Final Culture exhibits no growth. 03/22/20 00:20 Urine Catheter - Garcia Legionella Antigen - Final 03/22/20 00:20 Urine Catheter - Garcia Streptococcus pneumoniae Antigen (M - Final 03/21/20 23:05 Blood Culture (Wb) - No Site/Description Given Blood Culture - Preliminary No growth in 48 hours. 03/21/20 23:55 Blood Culture (Wb) - No Site/Description Given Blood Culture - Preliminary No growth in 48 hours. Laboratory Results 03/24/20 10:26: POC Glucose 176 H 03/24/20 16:52: POC Glucose 157 H 03/24/20 22:44: POC Glucose 125 H 03/25/20 06:55: POC Glucose 117 H 03/25/20 07:32: WBC 12.3 H, RBC 2.64 L, Hgb 9.5 L, Hct 34.4 L, MCV 130.3 H D, MCH 36.0 H, MCHC 27.6 L D, RDW Std Deviation 94.3 H, RDW Coeff of Reggie 19.5 H, Plt Count 295, MPV 10.7, Immature Gran % (Auto) 0.500, Neut % (Auto) 88.8 H, Lymph % (Auto) 2.9 L, Woodson % (Auto) 7.7, Eos % (Auto) 0.0, Baso % (Auto) 0.1, Absolute Neuts (auto) 10.9 H, Absolute Lymphs (auto) 0.36 L, Nucleated RBC % 0.6, Differential Comment SCANNED, Macrocytosis 3+, Target Cells 1+, Crenated Cell RARE 03/25/20 07:32: Sodium 140, Potassium 5.6 H, Chloride 115 H, Carbon Dioxide 20.0 L, Anion Gap 5, BUN 137 H*, Creatinine 4.70 H, Estim Creat Clear Calc 13.14, Est GFR (MDRD) Af Amer 16 L, Est GFR (MDRD) Non-Af 13 L, BUN/Creatinine Ratio 29.1 H, Glucose 117 H, Calcium 8.4 L, Total Bilirubin 0.40, AST 33, ALT 45, Alkaline Phosphatase 90, Total Protein 7.4, Albumin 2.2 L, Globulin 5.2 H, Albumin/Globulin Ratio 0.4 L 03/25/20 11:12: POC Glucose 103 Current Medications Acetaminophen (Acetaminophen 325 Mg Tablet) 650 mg PO Q6H PRN PRN PRN Reason: Pain Score 1-10/Temp > 100.7 F Last Admin: 03/25/20 12:41 Dose: 650 mg Documented by: Albuterol Sulfate (Albuterol 2.5 Mg/3 Ml Vial.Neb.) 2.5 mg INHALATION Q2H PRN PRN PRN Reason: DYSPNEA Amiodarone HCl (Amiodarone 200 Mg Tablet) 200 mg PO BID [facility] Last Admin: 03/25/20 11:03 Dose: 200 mg Documented by: Apixaban (Apixaban 5 Mg Tablet) 5 mg PO BID [facility] Last Admin: 03/25/20 11:23 Dose: Not Given Documented by: Atorvastatin Calcium (Atorvastatin Calcium 20 Mg Tablet) 20 mg PO QHS [facility] Last Admin: 03/24/20 22:51 Dose: 20 mg Documented by: Calamine/Phenol (Menthol/Lanolin/Calamine/Znox 113 Gm Tube) 1 applic TOPICAL TID [facility]; Protocol Last Admin: 03/25/20 13:29 Dose: 1 applicatio Documented by: Dexamethasone Sodium Phosphate (Dexamethasone 4 Mg/Ml Vial) 6 mg IV DAILY [facility] Stop: 03/30/20 10:01 Last Admin: 03/25/20 11:57 Dose: 6 mg Documented by: Gabapentin (Gabapentin 600 Mg Tablet) 600 mg PO QHS [facility] Last Admin: 03/24/20 22:51 Dose: 600 mg Documented by: Sodium Chloride () 250 mls @ 15 mls/hr IV .[id number] PRN PRN Reason: Saline Flush Last Infusion: 03/24/20 23:29 Dose: Infused Documented by: Sodium Chloride () 250 mls @ 15 mls/hr IV .[id number] PRN PRN Reason: Additional IVPB Infusion Insulin Human Lispro (Insulin Lispro 100 Unit/Ml Insuln.Pen) 0 unit SC ACHS [facility]; Protocol Last Admin: 03/25/20 11:23 Dose: Not Given Documented by: L-Arginine/L-Glutamine/Calcium HMB (Jackson (Unflavored) Packet) 1 packet PO BIDCM [facility] Last Admin: 03/25/20 11:23 Dose: Not Given Documented by: Lidocaine HCl (Lidocaine Jelly 2% Tube 30 Ml) 0.25 tube TOPICAL TID [facility]; Protocol Last Admin: 03/25/20 13:29 Dose: 0.25 tube Documented by: Linezolid (Linezolid 600 Mg Tablet) 600 mg PO BID [facility] Last Admin: 03/25/20 11:23 Dose: Not Given Documented by: Magnesium Chloride (Magnesium Chloride 64 Mg Delay Rel.Tablet) 128 mg PO DAILY@0800 [facility] Last Admin: 03/25/20 11:23 Dose: Not Given Documented by: Metoprolol Succinate (Metoprolol(Xl)Succ 50 Mg Tablet) 50 mg PO DAILY [facility] Last Admin: 03/25/20 11:03 Dose: 50 mg Documented by: Ondansetron HCl (Ondansetron 4 Mg/2 Ml Vial) 4 mg IV Q8H PRN PRN PRN Reason: NAUSEA/VOMITING Pantoprazole Sodium (Pantoprazole Sodium 20 Mg Tablet) 20 mg PO BID [facility] Last Admin: 03/25/20 11:23 Dose: Not Given Documented by: Sodium Chloride (0.9% Saline Lock 10 Ml Syringe) 10 - 40 ml IV UD PRN PRN Reason: SALINE FLUSH Last Admin: 03/25/20 11:58 Dose: 10 ml Documented by: Assessment/Plan All Active Problems (Last Reviewed 03/10/20 @ 13:[address] Micky Mauro MD) Sepsis due to pneumonia (Acute) Acute kidney injury (Acute) Hypoxemia (Acute) Elevated troponin (Acute) COVID-19 (Acute) Elevated INR (Resolved) Skin tear of left elbow without complication (Resolved) 74 y/o M with BRIANA on CKD request for dialysis catheter, +COVID 1. Will plan to place Right IJ dialysis temporary catheter. Consent was obtain from the patients , Yolanda. Will attempt to place a wire in the pre-existing RIJ triple lumen then dilate for dialysis catheter, if that doesn't work will do a new stick after removing the triple lumen. Pt last got eliquis yesterday evening. Will plan to schedule tunnelled dialysis catheter next week, will have eliquis held for 2 days before. Diana Rabago M.D. Pager: [phone] [facility] [address] [place] [address], Outpatient [facility], [address] [place] [id number] Office: [phone] Inpatient E&M: 50708 Init Hosp L3
[2020-03-25] MEDS: Heparin 10,000 UNITS/10 ML Vial IV ×2 (15:02→23:20)
--- NOTE | 2020-03-25 15:10 | RAD_ITS ---
STUDY: X-RAY CHEST REASON FOR EXAM: Male, 74 years old. Line placement TECHNIQUE: Single AP portable view of the chest. COMPARISON: Comparison is made with prior study dated 03/16/2020. FINDINGS: A right-sided jugular venous catheter has been placed with the tip at the junction of these superior vena cava and right atrium. Small bilateral pleural effusions with bibasilar atelectasis and/or infiltrates worse on the left side. This is superimposed on a mild degree of vascular congestion. There is mild cardiac enlargement. Normal mediastinum and raquel. Normal visualized pulmonary arteries. There is atherosclerotic calcification of the aortic arch with tortuosity. RAD/CXR for Line Placement IMPRESSION: The tip of the right internal jugular venous catheter is at the junction of the superior vena cava and right atrium. Small bilateral pleural effusions with bibasilar atelectasis worse on the left side superimposed on CHF. Electronically Signed: Shen Echeverria, at 15:24 EST , Service support ,
--- NOTE | 2020-03-25 15:20 | OP.PCM_ITS ---
Report of Operation Date of Procedure: 03/25/20 Pre-Operative Diagnosis: Acute on chronic kidney disease requesting dialysis catheter Post-Operative Diagnosis: Same Surgery/Procedure Performed:: Insertion of right IJ Temporary dialysis line. Use of ultrasound Type of Anesthesia:: Local Estimated Blood Loss (mL): 10 cc Description of Procedure: Procedure: A time-out was completed to verify correct patient, indication, medication allergies, procedure, coagulation studies, informed consent signed, and equipment needed. The patient was placed in the supine position for a Dialysis catheter placement to the right IJ vein. Patient had a previous right triple-lumen catheter this was prepped with Betadine.The patients right neck was also prepped using chlorhexidine and a full body sterile drape was applied. 1% lidocaine was used to anesthetize the surrounding skin. Initially attempted to place a guidewire down the brown port however it was meeting resistance.Thus the triple lumen catheter was removed area was prepped with Betadine. A 12 [place] 16cm [employer] Lot [id number] REF [id number] Temporary hemodialysis catheter introduced into the internal jugular vein using the sree fied Seldinger technique with the assistance of ultrasound. The site was dilated up twice in a stepwise fashion. The catheter was threaded smoothly over the guidewire, the guidewire was removed easily, nonpulsatile blood returned. All ports were aspirated of air and flushed with sterile saline Then flushed with 1:10,000 heparin 1.3 mL to each port. The catheter was sutured in place and covered with an occlusive dressing impregnated with chlorhexidine. Patient tolerated procedure well.Chest x-ray showed good position of the catheter no pneumothorax. Grafts/Implants Used: 12 [place] 16cm [employer] Lot [id number] REF [id number] - Complications none
--- NOTE | 2020-03-25 17:04 | PCM.PN.HOSP ---
Patient Problems: Active and Suspected Problems (Last Reviewed 03/10/20 @ 13:[address] Micky Mauro MD) Sepsis due to pneumonia (Acute) Acute kidney injury (Acute) Hypoxemia (Acute) Elevated troponin (Acute) COVID-19 (Acute) Subjective: Would like to proceed with dialysis. He is frustrated with how long is taken to get better and he is reticent about going to a senior care facility on discharge Vitals/I&O's: Vital Signs Temp Pulse Resp BP Pulse Ox 97.8 F 79 18 90/52 L 95 03/25/20 16:48 03/25/20 16:48 03/25/20 16:48 03/25/20 16:48 03/25/20 16:48 Oxygen Flow Rate (L/min) 4 Oxygen Delivery Method Nasal Cannula Weight: 248 lb 10.903 oz Body Mass Index (BMI) 35.3 Intake and Output for Last 24 Hours 03/23/20 03/24/20 03/25/20 23:59 23:59 23:59 Intake Total 1767.05 / 1767.05 1393.25 / 1393.25 250 / 250 Output Total 205 / 205 240 / 240 50 / 50 Balance 1562.05 / 1562.05 1153.25 / 1153.25 200 / 200 General: Alert, oriented x3, no acute distress HEENT: Atraumatic, PERRLA, EOMI, normocephalic Oral: Moist Mucosa Neck: Supple, No JVD Lungs: Normal air movement, Diminished, Rhonchi, Wheezes Cardiovascular: Regular Rhythm, Normal S1, Normal S2, No murmurs, Tachycardic Abdomen: Soft, Non Tender, Non-Distended, No Hepato-splenomegaly Extremities: No edema, Capillary Refill Less than 3 Seconds Skin: No rashes, No breakdown Neurological: Neuro grossly intact, sensation intact Psych/Mental Status: Flat affect Microbiology Past 72 Hours 03/24/20 Unknown Sputum, Expectorated/Coughed Gram Stain - Final 03/24/20 Unknown Sputum, Expectorated/Coughed Respiratory Culture - Preliminary Yeast Like Organism 03/22/20 00:20 Urine Catheter - Garcia Urine Culture - Final Culture exhibits no growth. 03/22/20 00:20 Urine Catheter - Garcia Legionella Antigen - Final 03/22/20 00:20 Urine Catheter - Garcia Streptococcus pneumoniae Antigen (M - Final 03/21/20 23:05 Blood Culture (Wb) - No Site/Description Given Blood Culture - Preliminary No growth in 48 hours. 03/21/20 23:55 Blood Culture (Wb) - No Site/Description Given Blood Culture - Preliminary No growth in 48 hours. Laboratory Results 03/24/20 16:52: POC Glucose 157 H 03/24/20 22:44: POC Glucose 125 H 03/25/20 06:55: POC Glucose 117 H 03/25/20 07:32: WBC 12.3 H, RBC 2.64 L, Hgb 9.5 L, Hct 34.4 L, MCV 130.3 H D, MCH 36.0 H, MCHC 27.6 L D, RDW Std Deviation 94.3 H, RDW Coeff of Reggie 19.5 H, Plt Count 295, MPV 10.7, Immature Gran % (Auto) 0.500, Neut % (Auto) 88.8 H, Lymph % (Auto) 2.9 L, [place] % (Auto) 7.7, Eos % (Auto) 0.0, Baso % (Auto) 0.1, Absolute Neuts (auto) 10.9 H, Absolute Lymphs (auto) 0.36 L, Nucleated RBC % 0.6, Differential Comment SCANNED, Macrocytosis 3+, Target Cells 1+, Crenated Cell RARE 03/25/20 07:32: Sodium 140, Potassium 5.6 H, Chloride 115 H, Carbon Dioxide 20.0 L, Anion Gap 5, BUN 137 H*, Creatinine 4.70 H, Estim Creat Clear Calc 13.14, Est GFR (MDRD) Af Amer 16 L, Est GFR (MDRD) Non-Af 13 L, BUN/Creatinine Ratio 29.1 H, Glucose 117 H, Calcium 8.4 L, Total Bilirubin 0.40, AST 33, ALT 45, Alkaline Phosphatase 90, Total Protein 7.4, Albumin 2.2 L, Globulin 5.2 H, Albumin/Globulin Ratio 0.4 L 03/25/20 11:12: POC Glucose 103 Current Medications Acetaminophen (Acetaminophen 325 Mg Tablet) 650 mg PO Q6H PRN PRN PRN Reason: Pain Score 1-10/Temp > 100.7 F Last Admin: 03/25/20 12:41 Dose: 650 mg Documented by: Albuterol Sulfate (Albuterol 2.5 Mg/3 Ml Vial.Neb.) 2.5 mg INHALATION Q2H PRN PRN PRN Reason: DYSPNEA Amiodarone HCl (Amiodarone 200 Mg Tablet) 200 mg PO BID [facility] Last Admin: 03/25/20 11:03 Dose: 200 mg Documented by: Apixaban (Apixaban 5 Mg Tablet) 5 mg PO BID [facility] Last Admin: 03/25/20 11:23 Dose: Not Given Documented by: Atorvastatin Calcium (Atorvastatin Calcium 20 Mg Tablet) 20 mg PO QHS [facility] Last Admin: 03/24/20 22:51 Dose: 20 mg Documented by: Calamine/Phenol (Menthol/Lanolin/Calamine/Znox 113 Gm Tube) 1 applic TOPICAL TID [facility]; Protocol Last Admin: 03/25/20 13:29 Dose: 1 applicatio Documented by: Dexamethasone Sodium Phosphate (Dexamethasone 4 Mg/Ml Vial) 6 mg IV DAILY [facility] Stop: 03/30/20 10:01 Last Admin: 03/25/20 11:57 Dose: 6 mg Documented by: Gabapentin (Gabapentin 600 Mg Tablet) 600 mg PO QHS [facility] Last Admin: 03/24/20 22:51 Dose: 600 mg Documented by: Sodium Chloride () 250 mls @ 15 mls/hr IV .[id number] PRN PRN Reason: Saline Flush Last Infusion: 03/24/20 23:29 Dose: Infused Documented by: Sodium Chloride () 250 mls @ 15 mls/hr IV .[id number] PRN PRN Reason: Additional IVPB Infusion Insulin Human Lispro (Insulin Lispro 100 Unit/Ml Insuln.Pen) 0 unit SC [facility]; Protocol Last Admin: 03/25/20 16:45 Dose: Not Given Documented by: L-Arginine/L-Glutamine/Calcium HMB (Jackson (Unflavored) Packet) 1 packet PO BIDCM [facility] Last Admin: 03/25/20 16:46 Dose: Not Given Documented by: Lidocaine HCl (Lidocaine Jelly 2% Tube 30 Ml) 0.25 tube TOPICAL TID [facility]; Protocol Last Admin: 03/25/20 13:29 Dose: 0.25 tube Documented by: Magnesium Chloride (Magnesium Chloride 64 Mg Delay Rel.Tablet) 128 mg PO DAILY@0800 [facility] Last Admin: 03/25/20 11:23 Dose: Not Given Documented by: Metoprolol Succinate (Metoprolol(Xl)Succ 50 Mg Tablet) 50 mg PO DAILY [facility] Last Admin: 03/25/20 11:03 Dose: 50 mg Documented by: Ondansetron HCl (Ondansetron 4 Mg/2 Ml Vial) 4 mg IV Q8H PRN PRN PRN Reason: NAUSEA/VOMITING Pantoprazole Sodium (Pantoprazole Sodium 20 Mg Tablet) 20 mg PO BID [facility] Last Admin: 03/25/20 11:23 Dose: Not Given Documented by: Sodium Chloride (0.9% Saline Lock 10 Ml Syringe) 10 - 40 ml IV UD PRN PRN Reason: SALINE FLUSH Last Admin: 03/25/20 11:58 Dose: 10 ml Documented by: STROKE Vital Signs/Narrative: Vital Signs Temp Pulse Resp BP Pulse Ox 03/25/20 16:48 97.8 F 79 18 90/52 L 95 03/25/20 15:16 98.1 F 67 20 H 94/51 L 92 03/25/20 13:26 98.6 F 84 20 H 90/60 99 Medical Necessity - Tobacco Use Smoking Status: Current every day smoker Assessment/Plan All Active Problems (Last Reviewed 03/10/20 @ 13:[address] Micky Mauro MD) Sepsis due to pneumonia (Acute) Acute kidney injury (Acute) Hypoxemia (Acute) Elevated troponin (Acute) COVID-19 (Acute) Elevated INR (Resolved) Skin tear of left elbow without complication (Resolved) 1. 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 History of paroxysmal A. fib/A-flutter/HTN/HLD/indeterminate troponin/nonischemic cardiomyopathy -His troponin was slightly elevated to 0.197 his BNP on admission was 2666, the troponin was likely secondary to his tachycardia as well as sepsis -When able we will need to restart his Lasix -Was started on IV amiodarone and transition to oral amiodarone -In 2019, EF was 55% with pulmonary artery systolic pressure 46 mmHg 3. History of DVT/PE -Stable -Continue with Eliquis 4. Nonhealing surgical wounds of his lower back -We will consult wound care nurse for evaluation -These are secondary to surgical debridement for an abscess following lumbar spine surgery 5. Chronic alcoholic cirrhosis/anemia of chronic disease -Hold his Lasix and his lactulose secondary to his septic shock -His anemia is at baseline likely related to his cirrhosis as well as his chronic kidney disease 6. GERD -Stable -Continue with PPI DVT: Eliquis [facility] E[facility]M: [id number]
[2020-03-25 17:06] LABS: Bedside Glucose 105 mg/dL (70-110)
--- NOTE | 2020-03-25 17:08 | PN.ID_ITS ---
Patient Problems: Active and Suspected Problems (Last Reviewed 03/10/20 @ 13:[address] Micky Mauro MD) Sepsis due to pneumonia (Acute) Acute kidney injury (Acute) Hypoxemia (Acute) Elevated troponin (Acute) COVID-19 (Acute) Subjective: Frustrated about starting dialysis, not feeling well. - Physical Exam Vitals/I&O's: Vital Signs Temp Pulse Resp BP Pulse Ox 97.8 F 79 18 90/52 L 95 03/25/20 16:48 03/25/20 16:48 03/25/20 16:48 03/25/20 16:48 03/25/20 16:48 Oxygen Flow Rate (L/min) 4 Oxygen Delivery Method Nasal Cannula Weight: 112.8 kg Body Mass Index (BMI) 35.3 Intake and Output for Last 24 Hours 03/23/20 03/24/20 03/25/20 23:59 23:59 23:59 Intake Total 1767.05 / 1767.05 1393.25 / 1393.25 250 / 250 Output Total 205 / 205 240 / 240 50 / 50 Balance 1562.05 / 1562.05 1153.25 / 1153.25 200 / 200 General: Cooperative, No apparent distress Lungs: Clear to auscultation, Diminished Cardiovascular: Regular rate, Regular Rhythm Abdomen: Soft, Non Tender, Non-Distended Skin: No rashes Microbiology Past 72 Hours 03/24/20 Unknown Sputum, Expectorated/Coughed Gram Stain - Final 03/24/20 Unknown Sputum, Expectorated/Coughed Respiratory Culture - Preliminary Yeast Like Organism 03/22/20 00:20 Urine Catheter - Garcia Urine Culture - Final Culture exhibits no growth. 03/22/20 00:20 Urine Catheter - Garcia Legionella Antigen - Final 03/22/20 00:20 Urine Catheter - Garcia Streptococcus pneumoniae Antigen (M - Final 03/21/20 23:05 Blood Culture (Wb) - No Site/Description Given Blood Culture - Preliminary No growth in 48 hours. 03/21/20 23:55 Blood Culture (Wb) - No Site/Description Given Blood Culture - Preliminary No growth in 48 hours. Laboratory Results 03/24/20 16:52: POC Glucose 157 H 03/24/20 22:44: POC Glucose 125 H 03/25/20 06:55: POC Glucose 117 H 03/25/20 07:32: WBC 12.3 H, RBC 2.64 L, Hgb 9.5 L, Hct 34.4 L, MCV 130.3 H D, MCH 36.0 H, MCHC 27.6 L D, RDW Std Deviation 94.3 H, RDW Coeff of Reggie 19.5 H, Plt Count 295, MPV 10.7, Immature Gran % (Auto) 0.500, Neut % (Auto) 88.8 H, Lymph % (Auto) 2.9 L, [place] % (Auto) 7.7, Eos % (Auto) 0.0, Baso % (Auto) 0.1, Absolute Neuts (auto) 10.9 H, Absolute Lymphs (auto) 0.36 L, Nucleated RBC % 0.6, Differential Comment SCANNED, Macrocytosis 3+, Target Cells 1+, Crenated Cell RARE 03/25/20 07:32: Sodium 140, Potassium 5.6 H, Chloride 115 H, Carbon Dioxide 20.0 L, Anion Gap 5, BUN 137 H*, Creatinine 4.70 H, Estim Creat Clear Calc 13.14, Est GFR (MDRD) Af Amer 16 L, Est GFR (MDRD) Non-Af 13 L, BUN/Creatinine Ratio 29.1 H , Glucose 117 H, Calcium 8.4 L, Total Bilirubin 0.40, AST 33, ALT 45, Alkaline Phosphatase 90, Total Protein 7.4, Albumin 2.2 L, Globulin 5.2 H, Albumin/Globulin Ratio 0.4 L 03/25/20 11:12: POC Glucose 103 03/25/20 16:45: POC Glucose 105 Current Medications Acetaminophen (Acetaminophen 325 Mg Tablet) 650 mg PO Q6H PRN PRN PRN Reason: Pain Score 1-10/Temp > 100.7 F Last Admin: 03/25/20 12:41 Dose: 650 mg Documented by: Albuterol Sulfate (Albuterol 2.5 Mg/3 Ml Vial.Neb.) 2.5 mg INHALATION Q2H PRN PRN PRN Reason: DYSPNEA Amiodarone HCl (Amiodarone 200 Mg Tablet) 200 mg PO BID [facility] Last Admin: 03/25/20 11:03 Dose: 200 mg Documented by: Apixaban (Apixaban 5 Mg Tablet) 5 mg PO BID [facility] Last Admin: 03/25/20 11:23 Dose: Not Given Documented by: Atorvastatin Calcium (Atorvastatin Calcium 20 Mg Tablet) 20 mg PO QHS [facility] Last Admin: 03/24/20 22:51 Dose: 20 mg Documented by: Calamine/Phenol (Menthol/Lanolin/Calamine/Znox 113 Gm Tube) 1 applic TOPICAL TID [facility]; Protocol Last Admin: 03/25/20 13:29 Dose: 1 applicatio Documented by: Dexamethasone Sodium Phosphate (Dexamethasone 4 Mg/Ml Vial) 6 mg IV DAILY [facility] Stop: 03/30/20 10:01 Last Admin: 03/25/20 11:57 Dose: 6 mg Documented by: Gabapentin (Gabapentin 600 Mg Tablet) 600 mg PO QHS [facility] Last Admin: 03/24/20 22:51 Dose: 600 mg Documented by: Sodium Chloride () 250 mls @ 15 mls/hr IV .[id number] PRN PRN Reason: Saline Flush Last Infusion: 03/24/20 23:29 Dose: Infused Documented by: Sodium Chloride () 250 mls @ 15 mls/hr IV .[id number] PRN PRN Reason: Additional IVPB Infusion Insulin Human Lispro (Insulin Lispro 100 Unit/Ml Insuln.Pen) 0 unit SC [facility]; Protocol Last Admin: 03/25/20 16:45 Dose: Not Given Documented by: L-Arginine/L-Glutamine/Calcium HMB ([place] ([facility]fl[facility]) [facility] Last Admin: 03/25/20 16:46 Dose: Not Given Documented by: Lidocaine HCl (Lidocaine Jelly 2% Tube 30 Ml) 0.25 tube TOPICAL TID [facility]; Protocol Last Admin: 03/25/20 13:29 Dose: 0.25 tube Documented by: Magnesium Chloride (Magnesium Chloride 64 Mg Delay Rel.Tablet) 128 mg PO DAILY@0800 [facility] Last Admin: 03/25/20 11:23 Dose: Not Given Documented by: Metoprolol Succinate (Metoprolol(Xl)Succ 50 Mg Tablet) 50 mg PO DAILY [facility] Last Admin: 03/25/20 11:03 Dose: 50 mg Documented by: Ondansetron HCl (Ondansetron 4 Mg/2 Ml Vial) 4 mg IV Q8H PRN PRN PRN Reason: NAUSEA/VOMITING Pantoprazole Sodium (Pantoprazole Sodium 20 Mg Tablet) 20 mg PO BID [facility] Last Admin: 03/25/20 11:23 Dose: Not Given Documented by: Sodium Chloride (0.9% Saline Lock 10 Ml Syringe) 10 - 40 ml IV UD PRN PRN Reason: SALINE FLUSH Last Admin: 03/25/20 11:58 Dose: 10 ml Documented by: Medical Necessity - Tobacco Use Smoking Status: Current every day smoker Route of nutrition/ use of supplements: [] Nutritional Intake: [] IV Site: [] Garcia Catheter: [] - Assessment/Plan Antibiotics: [] Assessment/Plan: [] Active and Suspected Problems (Last Reviewed 03/10/20 @ 13:[address] Micky Mauro MD) Sepsis due to pneumonia (Acute) Acute kidney injury (Acute) Hypoxemia (Acute) Elevated troponin (Acute) covid with hypoxia and MRSA pneumonia - moved back to icu. Repeat covid (+). On dex. Got plasma 03/22. Feeling better overall. Will stop linezoid, started 03/19. Ucx neg. UAg neg. Started HD. Will follow
[2020-03-25 23:35] LABS: Bedside Glucose 101 mg/dL (70-110)
--- NOTE | 2020-03-25 23:36 | DIALYSIS ---
Pt tolerated 2hr HD tx w/ BP low throughout; net UF -1000ml. See flow record for tx data.
[2020-03-26] VITALS (16 sets, daily range): BP systolic 79–97; BP diastolic 42–53; PULSE 63–82; RESP 18–22; TEMP 36.3–36.9; O2SAT 74–99
--- NOTE | 2020-03-26 01:28 | NURSING ---
This RN attempted to start IV x 2, unsuccessful. laser beam color scanner operator attempted x 2, unsuccessful. No IV access to pt. at this time.
[2020-03-26] MEDS: Menthol/Lanolin/Calamine/Znox 113 GM Tube 1 APPLIC TOPICAL ×3 (06:38→21:00)
[2020-03-26 06:45] LABS: Bedside Glucose 90 mg/dL (70-110)
[2020-03-26] MEDS: Acetaminophen 325 MG Tablet 650 MG PO ×2 (06:45→18:22)
[2020-03-26 08:25] LABS: Absolute Lymphocyte Count 0.44 X10^3/uL (0.83-4.51); Absolute Neutrophil Count 8.2 X10^3/uL (2.0-7.7); Hematocrit 30.6 % (40-54); Lymphocyte # 0.44 X10^3/ul (4.0); Lymphocyte % 4.6 % (19-41); Mean Corp Hgb Conc 29.4 g/dL (32-36); Mean Corpuscular Hgb 35.3 pg (27.0-32.0); Mean Platelet Vol. 10.6 fl (6.2-12.0); Monocyte# 0.86 X10^3/uL; NRBC Flagged by Analyzer 0.5 % (0-5); Neutrophil # 8.15 X10^3/uL (2.7-7.7); Neutrophil % 85.8 % (47-70); POSITIVE DIFFERENTIAL YES; POSITIVE MORPHOLOGY YES; Platelet Count 260 K/mm3 (150-450); Red Blood Count 2.55 M/mm3 (4.6-6.2); White Blood Count 9.5 K/mm3 (4.4-11.0)
[2020-03-26 08:43] LABS: Differential Indicated SCAN CRITERIA MET
[2020-03-26 09:12] LABS: ALB/GLOB Ratio 0.4 RATIO (0.9-2.4); AST(SGOT) 29 U/L (15-37); Alanine Aminotransfer ALT/SGPT 46 U/L (16-61); Albumin, Serum 2.4 g/dL (3.2-5.0); Alkaline Phosphatase 91 U/L (45-117); Anion Gap 4 (5-15); BUN 120 mg/dL (7-18); BUN/Creat Ratio 25.5 RATIO (10-20); Calcium,Total 8.1 mg/dL (8.5-10.1); Chloride 109 mmol/L (98-107); EST Glomerular Filtration Rate 13 mL/min (>60); Est Glom Filt Rate - Afr Amer 16 mL/min (>60); Estimated Creatinine Clearance 13.14 ml/min; Globulin 5.4 g/dL (2.2-4.2); Glucose 119 mg/dL (74-106); Potassium 5.1 mmol/L (3.5-5.1); Protein, Total 7.8 g/dL (6.4-8.2); Sodium Level 138 mmol/L (136-145)
[2020-03-26 09:13] LABS: Hepatitis B Surface Antibody Non-Reactive; Hepatitis B Surface Antigen Non-Reactive (Nonreactive)
[2020-03-26] MEDS: Amiodarone 200 MG Tablet PO (09:21)
[2020-03-26] MEDS: Magnesium Chloride 64 MG Delay Rel.Tablet 128 MG PO (09:21)
[2020-03-26] MEDS: Pantoprazole Sodium 20 MG Tablet PO ×2 (09:22→21:01)
[2020-03-26] MEDS: dexAMETHasone 4 MG Tablet 6 MG PO (09:22)
[2020-03-26] MEDS: Juven (unflavored) Packet 1 PACKET PO (09:28)
[2020-03-26 09:51] LABS: Anisocytosis 2+; Differential Comment SCANNED
[2020-03-26 09:52] LABS: Macrocytosis 1+; Microcytosis 1+
--- NOTE | 2020-03-26 10:24 | PCM.PN.REN ---
Patient Problems: Active and Suspected Problems (Last Reviewed 03/10/20 @ 13:[address] Micky Mauro MD) Sepsis due to pneumonia (Acute) Acute kidney injury (Acute) Hypoxemia (Acute) Elevated troponin (Acute) COVID-19 (Acute) Subjective: no new events - Physical Exam Vitals/I&O's: Vital Signs Temp Pulse Resp BP Pulse Ox 97.5 F L 63 20 H 89/44 L 74 03/26/20 08:42 03/26/20 09:29 03/26/20 08:42 03/26/20 09:29 03/26/20 08:42 Oxygen Flow Rate (L/min) 6 Oxygen Delivery Method Room Air Weight: 109.5 kg Body Mass Index (BMI) 35.3 Intake and Output for Last 24 Hours 03/24/20 03/25/20 03/26/20 23:59 23:59 23:59 Intake Total 1393.25 / 1393.25 370 / 370 120 / 120 Output Total 240 / 240 1110 / 1110 Balance 1153.25 / 1153.25 -740 / -740 100 / 100 General: Alert, Cooperative, No apparent distress HEENT: Atraumatic, PERRLA, EOMI, Normocephalic Neck: Supple, No JVD, Negative Carotid Bruits Lungs: Clear to auscultation, Normal air movement Cardiovascular: Regular rate, No murmurs Abdomen: Bowel Sounds Present, Soft, Non Tender Extremities: No edema, Capillary Refill Less than 3 Seconds Skin: No rashes, No breakdown Musculoskeletal: No Tenderness to Palpation of Joints or Extremities Neurological: Cranial nerves II-XII grossly intact Psych/Mental Status: Normal Affect, Appropriate Microbiology Past 72 Hours 03/24/20 Unknown Sputum, Expectorated/Coughed Gram Stain - Final 03/24/20 Unknown Sputum, Expectorated/Coughed Respiratory Culture - Final Presumptive C albicans 03/22/20 00:20 Urine Catheter - Garcia Urine Culture - Final Culture exhibits no growth. 03/22/20 00:20 Urine Catheter - Garcia Legionella Antigen - Final 03/22/20 00:20 Urine Catheter - Garcia Streptococcus pneumoniae Antigen (M - Final 03/21/20 23:05 Blood Culture (Wb) - No Site/Description Given Blood Culture - Preliminary No growth in 48 hours. 03/21/20 23:55 Blood Culture (Wb) - No Site/Description Given Blood Culture - Preliminary No growth in 48 hours. Laboratory Results 03/25/20 11:12: POC Glucose 103 03/25/20 16:45: POC Glucose 105 03/25/20 21:15: Hep B Core Total Ab Pending 03/25/20 21:15: Hep Bs Antigen Non-Reactive, Hep Bs Antibody Non-Reactive 03/25/20 23:23: POC Glucose 101 03/26/20 06:36: POC Glucose 90 03/26/20 08:07: WBC 9.5, RBC 2.55 L, Hgb 9.0 L, Hct 30.6 L, MCV 120.0 H D, MCH 35.3 H, MCHC 29.4 L D, RDW Std Deviation 84.0 H, RDW Coeff of Reggie 19.0 H, Plt Count 260, MPV 10.6, Immature Gran % (Auto) 0.600, Neut % (Auto) 85.8 H, Lymph % (Auto) 4.6 L, [place] % (Auto) 9.0, Eos % (Auto) 0.0, Baso % (Auto) 0.0, Absolute Neuts (auto) 8.2 H, Absolute Lymphs (auto) 0.44 L, Nucleated RBC % 0.5, Differential Comment SCANNED, Anisocytosis 2+, Microcytosis 1+, Macrocytosis 1+ 03/26/20 08:07: Sodium 138, Potassium 5.1, Chloride 109 H, Carbon Dioxide 25.0, Anion Gap 4 L, BUN 120 H*, Creatinine 4.70 H, Estim Creat Clear Calc 13.14, Est GFR (MDRD) Af Amer 16 L, Est GFR (MDRD) Non-Af 13 L, BUN/Creatinine Ratio 25.5 H, Glucose 119 H, Calcium 8.1 L, Total Bilirubin 0.40, AST 29, ALT 46, Alkaline Phosphatase 91, Total Protein 7.8, Albumin 2.4 L, Globulin 5.4 H, Albumin/Globulin Ratio 0.4 L Current Medications Acetaminophen (Acetaminophen 325 Mg Tablet) 650 mg PO Q6H PRN PRN PRN Reason: Pain Score 1-10/Temp > 100.7 F Last Admin: 03/26/20 06:45 Dose: 650 mg Documented by: Albuterol Sulfate (Albuterol 2.5 Mg/3 Ml Vial.Neb.) 2.5 mg INHALATION Q2H PRN PRN PRN Reason: DYSPNEA Amiodarone HCl (Amiodarone 200 Mg Tablet) 200 mg PO BID [facility] Last Admin: 03/26/20 09:21 Dose: 200 mg Documented by: Apixaban (Apixaban 5 Mg Tablet) 5 mg PO BID [facility] Last Admin: 03/26/20 09:29 Dose: Not Given Documented by: Atorvastatin Calcium (Atorvastatin Calcium 20 Mg Tablet) 20 mg PO QHS [facility] Last Admin: 03/25/20 23:26 Dose: Not Given Documented by: Calamine/Phenol (Menthol/Lanolin/Calamine/Znox 113 Gm Tube) 1 applic TOPICAL TID [facility]; Protocol Last Admin: 03/26/20 06:38 Dose: 1 applicatio Documented by: Dexamethasone (Dexamethasone 4 Mg Tablet) 6 mg PO DAILY [facility] Stop: 04/04/20 10:01 Last Admin: 03/26/20 09:22 Dose: 6 mg Documented by: Gabapentin (Gabapentin 600 Mg Tablet) 600 mg PO QHS [facility] Last Admin: 03/25/20 23:26 Dose: Not Given Documented by: Sodium Chloride () 250 mls @ 15 mls/hr IV .[id number] PRN PRN Reason: Saline Flush Last Infusion: 03/24/20 23:29 Dose: Infused Documented by: Sodium Chloride () 250 mls @ 15 mls/hr IV .[id number] PRN PRN Reason: Additional IVPB Infusion Insulin Human Lispro (Insulin Lispro 100 Unit/Ml Insuln.Pen) 0 unit SC [facility]; Protocol Last Admin: 03/26/20 06:38 Dose: Not Given Documented by: L-Arginine/L-Glutamine/Calcium HMB ([place] (Unflavored) Packet) 1 packet [facility]CM [facility] Last Admin: 03/26/20 09:28 Dose: 1 packet Documented by: Lidocaine HCl (Lidocaine Jelly 2% Tube 30 Ml) 0.25 tube TOPICAL TID [facility]; Protocol Last Admin: 03/26/20 06:38 Dose: 0.25 tube Documented by: Magnesium Chloride (Magnesium Chloride 64 Mg Delay Rel.Tablet) 128 mg PO DAILY@0800 [facility] Last Admin: 03/26/20 09:21 Dose: 128 mg Documented by: Metoprolol Succinate (Metoprolol(Xl)Succ 50 Mg Tablet) 50 mg PO DAILY [facility] Last Admin: 03/26/20 09:29 Dose: Not Given Documented by: Ondansetron HCl (Ondansetron 4 Mg/2 Ml Vial) 4 mg IV Q8H PRN PRN PRN Reason: NAUSEA/VOMITING Pantoprazole Sodium (Pantoprazole Sodium 20 Mg Tablet) 20 mg PO BID [facility] Last Admin: 03/26/20 09:22 Dose: 20 mg Documented by: Sodium Chloride (0.9% Saline Lock 10 Ml Syringe) 10 - 40 ml IV UD PRN PRN Reason: SALINE FLUSH Last Admin: 03/25/20 11:58 Dose: 10 ml Documented by: Medical Necessity - Tobacco Use Smoking Status: Current every day smoker Assessment/Plan All Active Problems (Last Reviewed 03/10/20 @ 13:[address] Micky Mauro MD) Sepsis due to pneumonia (Acute) Acute kidney injury (Acute) Hypoxemia (Acute) Elevated troponin (Acute) COVID-19 (Acute) Elevated INR (Resolved) Skin tear of left elbow without complication (Resolved) 1. Acute kidney injury on chronic kidney disease stage 3. Baseline SCr has been around 1.8 mg/dL. Initial BRIANA was from ischemic ATN related to septic shock. BRIANA improved with increased UOP However, patient had 2nd septic shock with COVID-19 pneumonia which caused 2nd BRIANA likely from ATN DEVELOPMENTAL PSYCHOLOGIST initiated yesterday. HD today 2- Septic shock.Improved. off levophed ID is following for Abx 3- COVID-19 infection with hypoxia. On dexamethasone UF as tolerated
[2020-03-26 11:50] LABS: Bedside Glucose 108 mg/dL (70-110)
--- NOTE | 2020-03-26 13:36 | PCM.PN.HOSP ---
Patient Problems: Active and Suspected Problems (Last Reviewed 03/10/20 @ 13:[address] Micky Mauro MD) Sepsis due to pneumonia (Acute) Acute kidney injury (Acute) Hypoxemia (Acute) Elevated troponin (Acute) COVID-19 (Acute) Subjective: Feels little bit better today after dialysis yesterday. His BUN has improved. No issues overnight Vitals/I&O's: Vital Signs Temp Pulse Resp BP Pulse Ox 97.5 F L 70 20 H 89/44 L 74 03/26/20 08:42 03/26/20 11:00 03/26/20 08:42 03/26/20 09:29 03/26/20 08:42 Oxygen Flow Rate (L/min) 6 Oxygen Delivery Method Room Air Weight: 241 lb 6.499 oz Body Mass Index (BMI) 35.3 Intake and Output for Last 24 Hours 03/24/20 03/25/20 03/26/20 23:59 23:59 23:59 Intake Total 1393.25 / 1393.25 370 / 370 240 / 240 Output Total 240 / 240 1110 / 1110 95 / 95 Balance 1153.25 / 1153.25 -740 / -740 145 / 145 General: Alert, oriented x3, no acute distress HEENT: Atraumatic, PERRLA, EOMI, normocephalic Oral: Moist Mucosa Neck: Supple, No JVD Lungs: Normal air movement, Diminished, no rhonchi, no wheezes Cardiovascular: Regular rate, regular Rhythm, Normal S1, Normal S2, No murmurs Abdomen: Soft, Non Tender, Non-Distended, No Hepato-splenomegaly Extremities: No edema, Capillary Refill Less than 3 Seconds Skin: No rashes, No breakdown Neurological: Neuro grossly intact, sensation intact Psych/Mental Status: Flat affect Microbiology Past 72 Hours 03/26/20 09:45 Stool Stool Occult Blood (PADMINI) - Final 03/24/20 Unknown Sputum, Expectorated/Coughed Gram Stain - Final 03/24/20 Unknown Sputum, Expectorated/Coughed Respiratory Culture - Final Presumptive C albicans 03/22/20 00:20 Urine Catheter - Garcia Urine Culture - Final Culture exhibits no growth. 03/22/20 00:20 Urine Catheter - Garcia Legionella Antigen - Final 03/22/20 00:20 Urine Catheter - Garcia Streptococcus pneumoniae Antigen (M - Final 03/21/20 23:05 Blood Culture (Wb) - No Site/Description Given Blood Culture - Preliminary No growth in 48 hours. 03/21/20 23:55 Blood Culture (Wb) - No Site/Description Given Blood Culture - Preliminary No growth in 48 hours. Laboratory Results 03/25/20 16:45: POC Glucose 105 03/25/20 21:15: Hep B Core Total Ab Pending 03/25/20 21:15: Hep Bs Antigen Non-Reactive, Hep Bs Antibody Non-Reactive 03/25/20 23:23: POC Glucose 101 03/26/20 06:36: POC Glucose 90 03/26/20 08:07: WBC 9.5, RBC 2.55 L, Hgb 9.0 L, Hct 30.6 L, MCV 120.0 H D, MCH 35.3 H, MCHC 29.4 L D, RDW Std Deviation 84.0 H, RDW Coeff of Reggie 19.0 H, Plt Count 260, MPV 10.6, Immature Gran % (Auto) 0.600, Neut % (Auto) 85.8 H, Lymph % (Auto) 4.6 L, [place] % (Auto) 9.0, Eos % (Auto) 0.0, Baso % (Auto) 0.0, Absolute Neuts (auto) 8.2 H, Absolute Lymphs (auto) 0.44 L, Nucleated RBC % 0.5, Differential Comment SCANNED, Anisocytosis 2+, Microcytosis 1+, Macrocytosis 1+ 03/26/20 08:07: Sodium 138, Potassium 5.1, Chloride 109 H, Carbon Dioxide 25.0, Anion Gap 4 L, BUN 120 H*, Creatinine 4.70 H, Estim Creat Clear Calc 13.14, Est GFR (MDRD) Af Amer 16 L, Est GFR (MDRD) Non-Af 13 L, BUN/Creatinine Ratio 25.5 H, Glucose 119 H, Calcium 8.1 L, Total Bilirubin 0.40, AST 29, ALT 46, Alkaline Phosphatase 91, Total Protein 7.8, Albumin 2.4 L, Globulin 5.4 H, Albumin/Globulin Ratio 0.4 L 03/26/20 11:23: POC Glucose 108 Current Medications Acetaminophen (Acetaminophen 325 Mg Tablet) 650 mg PO Q6H PRN PRN PRN Reason: Pain Score 1-10/Temp > 100.7 F Last Admin: 03/26/20 06:45 Dose: 650 mg Documented by: Albuterol Sulfate (Albuterol 2.5 Mg/3 Ml Vial.Neb.) 2.5 mg INHALATION Q2H PRN PRN PRN Reason: DYSPNEA Amiodarone HCl (Amiodarone 200 Mg Tablet) 200 mg PO BID [facility] Last Admin: 03/26/20 09:21 Dose: 200 mg Documented by: Apixaban (Apixaban 5 Mg Tablet) 5 mg PO BID [facility] Last Admin: 03/26/20 09:29 Dose: Not Given Documented by: Atorvastatin Calcium (Atorvastatin Calcium 20 Mg Tablet) 20 mg PO QHS [facility] Last Admin: 03/25/20 23:26 Dose: Not Given Documented by: Calamine/Phenol (Menthol/Lanolin/Calamine/Znox 113 Gm Tube) 1 applic TOPICAL TID [facility]; Protocol Last Admin: 03/26/20 06:38 Dose: 1 applicatio Documented by: Dexamethasone (Dexamethasone 4 Mg Tablet) 6 mg PO DAILY [facility] Stop: 04/04/20 10:01 Last Admin: 03/26/20 09:22 Dose: 6 mg Documented by: Gabapentin (Gabapentin 600 Mg Tablet) 600 mg PO QHS [facility] Last Admin: 03/25/20 23:26 Dose: Not Given Documented by: Sodium Chloride () 250 mls @ 15 mls/hr IV .[id number] PRN PRN Reason: Saline Flush Last Infusion: 03/24/20 23:29 Dose: Infused Documented by: Sodium Chloride () 250 mls @ 15 mls/hr IV .[id number] PRN PRN Reason: Additional IVPB Infusion Insulin Human Lispro (Insulin Lispro 100 Unit/Ml Insuln.Pen) 0 unit SC ACHS [facility]; Protocol Last Admin: 03/26/20 11:30 Dose: Not Given Documented by: L-Arginine/L-Glutamine/Calcium HMB ([facility] ([facility]flav[facility]) [facility]) [facility] Last Admin: 03/26/20 09:28 Dose: 1 packet Documented by: Lidocaine HCl (Lidocaine Jelly 2% Tube 30 Ml) 0.25 tube TOPICAL TID [facility]; Protocol Last Admin: 03/26/20 06:38 Dose: 0.25 tube Documented by: Magnesium Chloride (Magnesium Chloride 64 Mg Delay Rel.Tablet) 128 mg PO DAILY@0800 [facility] Last Admin: 03/26/20 09:21 Dose: 128 mg Documented by: Metoprolol Succinate (Metoprolol(Xl)Succ 50 Mg Tablet) 50 mg PO DAILY [facility] Last Admin: 03/26/20 09:29 Dose: Not Given Documented by: Ondansetron HCl (Ondansetron 4 Mg/2 Ml Vial) 4 mg IV Q8H PRN PRN PRN Reason: NAUSEA/VOMITING Pantoprazole Sodium (Pantoprazole Sodium 20 Mg Tablet) 20 mg PO BID [facility] Last Admin: 03/26/20 09:22 Dose: 20 mg Documented by: Sodium Chloride (0.9% Saline Lock 10 Ml Syringe) 10 - 40 ml IV UD PRN PRN Reason: SALINE FLUSH Last Admin: 03/25/20 11:58 Dose: 10 ml Documented by: STROKE Vital Signs/Narrative: Vital Signs Pulse 03/26/20 11:00 70 Medical Necessity - Tobacco Use Smoking Status: Current every day smoker Assessment/Plan All Active Problems (Last Reviewed 03/10/20 @ 13:[address] Micky Mauro MD) Sepsis due to pneumonia (Acute) Acute kidney injury (Acute) Hypoxemia (Acute) Elevated troponin (Acute) COVID-19 (Acute) Elevated INR (Resolved) Skin tear of left elbow without complication (Resolved) 1. 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 History of paroxysmal A. fib/A-flutter/HTN/HLD/indeterminate troponin/nonischemic cardiomyopathy -His troponin was slightly elevated to 0.197 his BNP on admission was 2666, the troponin was likely secondary to his tachycardia as well as sepsis -When able we will need to restart his Lasix -Was started on IV amiodarone and transition to oral amiodarone -In 2019, EF was 55% with pulmonary artery systolic pressure 46 mmHg 3. History of DVT/PE -Stable -Continue with Eliquis 4. Nonhealing surgical wounds of his lower back -We will consult wound care nurse for evaluation -These are secondary to surgical debridement for an abscess following lumbar spine surgery 5. Chronic alcoholic cirrhosis/anemia of chronic disease and anemia secondary to gross hematuria -Hold his Lasix and his lactulose secondary to his septic shock -His anemia is at baseline likely related to his cirrhosis as well as his chronic kidney disease -Is also concerned for a fecal occult however this was negative -We will continue with intermittent irrigation of his Garcia and if it does not clear up in a day or 2 will consider having urology evaluate him -Hemoglobin is stable at around 9. 2 days ago was 8.5 then yesterday was 9.5. We will continue to monitor, given the hematuria, will hold his Eliquis until it stops 6. GERD -Stable -Continue with PPI DVT: SCDs Inpatient E&M: [id number] [facility] Hosp L2
[2020-03-26 15:21] LABS: Bedside Glucose 92 mg/dL (70-110)
--- NOTE | 2020-03-26 18:04 | CPS ---
critical values entered by student RT Brandon Sanabria, on 03/21/2020 @ 17:48, values given to RN and Doc
[2020-03-26] MEDS: Gabapentin 600 MG Tablet PO (21:01)
[2020-03-26] MEDS: Atorvastatin Calcium 20 MG Tablet PO (21:01)
[2020-03-26 22:30] LABS: Bedside Glucose 120 mg/dL (70-110)
[2020-03-27] VITALS (12 sets, daily range): BP systolic 94–118; BP diastolic 46–63; PULSE 63–113; RESP 16–18; TEMP 36.3–36.7; O2SAT 95–98
[2020-03-27] MEDS: Acetaminophen 325 MG Tablet 650 MG PO ×2 (03:30→11:14)
[2020-03-27] MEDS: Menthol/Lanolin/Calamine/Znox 113 GM Tube 1 APPLIC TOPICAL ×3 (05:47→21:01)
[2020-03-27 06:04] LABS: Absolute Lymphocyte Count 0.27 X10^3/uL (0.83-4.51); Absolute Neutrophil Count 8.1 X10^3/uL (2.0-7.7); Basophil# 0.01 X10^3/uL; Basophil% 0.1 % (0-1); Hemoglobin 8.4 g/dL (13.0-16.5); Lymphocyte # 0.27 X10^3/ul (4.0); Mean Corpuscular Hgb 35.3 pg (27.0-32.0); Mean Corpuscular Volume 117.6 fL (80-94); Mean Platelet Vol. 10.8 fl (6.2-12.0); Monocyte# 0.75 X10^3/uL; Monocyte% 8.2 % (0-10); Neutrophil # 8.07 X10^3/uL (2.7-7.7); Neutrophil % 88.3 % (47-70); POSITIVE DIFFERENTIAL YES; POSITIVE MORPHOLOGY YES; Platelet Count 217 K/mm3 (150-450); RBC Distribution Width CV 18.4 % (11.6-14.6); RBC Distribution Width SD 79.7 fl (35.1-43.9); Red Blood Count 2.38 M/mm3 (4.6-6.2); White Blood Count 9.1 K/mm3 (4.4-11.0)
[2020-03-27 06:24] LABS: Differential Indicated SCAN CRITERIA MET
[2020-03-27 06:35] LABS: ALB/GLOB Ratio 0.5 RATIO (0.9-2.4); AST(SGOT) 25 U/L (15-37); Alanine Aminotransfer ALT/SGPT 40 U/L (16-61); Albumin, Serum 2.4 g/dL (3.2-5.0); Alkaline Phosphatase 82 U/L (45-117); Anion Gap 7 (5-15); BUN 81 mg/dL (7-18); BUN/Creat Ratio 22.5 RATIO (10-20); Calcium,Total 7.7 mg/dL (8.5-10.1); Chloride 100 mmol/L (98-107); EST Glomerular Filtration Rate 18 mL/min (>60); Est Glom Filt Rate - Afr Amer 21 mL/min (>60); Estimated Creatinine Clearance 17.15 ml/min; Globulin 4.8 g/dL (2.2-4.2); Glucose 93 mg/dL (74-106); Potassium 4.5 mmol/L (3.5-5.1); Protein, Total 7.2 g/dL (6.4-8.2); Sodium Level 134 mmol/L (136-145)
[2020-03-27 07:05] LABS: Bedside Glucose 97 mg/dL (70-110)
[2020-03-27 07:15] LABS: Anisocytosis 1+; Macrocytosis 2+; Platelet Estimate ADEQUATE (ADEQ)
[2020-03-27] MEDS: Magnesium Chloride 64 MG Delay Rel.Tablet 128 MG PO (08:37)
[2020-03-27] MEDS: Juven (unflavored) Packet 1 PACKET PO ×2 (08:37→17:54)
[2020-03-27] MEDS: dexAMETHasone 4 MG Tablet 6 MG PO (08:37)
[2020-03-27] MEDS: Pantoprazole Sodium 20 MG Tablet PO ×2 (08:38→20:56)
[2020-03-27 11:50] LABS: Bedside Glucose 139 mg/dL (70-110)
[2020-03-27 12:48] LABS: Bacteria 0 SEEN /hpf (None Seen); Mucous, Urine 0 SEEN /hpf (<or=2+); Squamous Epithelial Cells - UA 0 SEEN /hpf (0-5); White Blood Cells 0 SEEN /hpf (0-5)
[2020-03-27 13:07] LABS: Color, Urine Red (Yellow); Glucose, Dipstick Normal (Normal); Ketone-Dipstick 15 mg/dl (Negative); Leukocyte Esterase-Dipstick Negative /ul (Negative); Nitrite-Dipstick Negative (Negative); Occult Blood-Urine 150 /ul (Negative); Protein-Dipstick 500 mg/dl (Negative); Specific Gravity, Urine 1.015 (1.002-1.030); Urine Bilirubin Dipstick Negative (Negative); Urine Clarity Turbid (Clear); Urine Urobilinogen Normal (Normal)
[2020-03-27 13:18] LABS: Red Blood Cells-Urine > 100 SEEN /hpf (0-5)
--- NOTE | 2020-03-27 14:20 | PN.RENAL_ITS ---
Patient Problems: Active and Suspected Problems (Last Reviewed 03/10/20 @ 13:[address] Micky Mauro MD) Sepsis due to pneumonia (Acute) Acute kidney injury (Acute) Hypoxemia (Acute) Elevated troponin (Acute) COVID-19 (Acute) Subjective: no new events Objective: exam minimized due to covid - Physical Exam Vitals/I&O's: Vital Signs Temp Pulse Resp BP Pulse Ox 97.4 F L 86 18 107/50 L 96 03/27/20 08:00 03/27/20 11:01 03/27/20 08:00 03/27/20 08:00 03/27/20 08:00 Oxygen Flow Rate (L/min) 6 Oxygen Delivery Method Nasal Cannula Weight: 109.089 kg Body Mass Index (BMI) 35.3 Intake and Output for Last 24 Hours 03/25/20 03/26/20 03/27/20 23:59 23:59 23:59 Intake Total 370 / 370 360 / 480 410 / 410 Output Total 1110 / 1110 120 / 130 125 / 125 Balance -740 / -740 240 / 350 285 / 285 Microbiology Past 72 Hours 03/21/20 23:05 Blood Culture (Wb) - No Site/Description Given Blood Culture - Final No growth in 5 days. 03/21/20 23:55 Blood Culture (Wb) - No Site/Description Given Blood Culture - Final No growth in 5 days. 03/26/20 09:45 Stool Stool Occult Blood (PADMINI) - Final 03/24/20 Unknown Sputum, Expectorated/Coughed Gram Stain - Final 03/24/20 Unknown Sputum, Expectorated/Coughed Respiratory Culture - Final Presumptive C albicans 03/22/20 00:20 Urine Catheter - Garcia Urine Culture - Final Culture exhibits no growth. 03/22/20 00:20 Urine Catheter - Garcia Legionella Antigen - Final 03/22/20 00:20 Urine Catheter - Garcia Streptococcus pneumoniae Antigen (M - Final Laboratory Results 03/26/20 15:11: POC Glucose 92 03/26/20 21:05: POC Glucose 120 H 03/27/20 04:55: WBC 9.1, RBC 2.38 L, Hgb 8.4 L, Hct 28.0 L, MCV 117.6 H, MCH 35.3 H, MCHC 30.0 L, RDW Std Deviation 79.7 H, RDW Coeff of Reggie 18.4 H, Plt Count 217, MPV 10.8, Immature Gran % (Auto) 0.400, Neut % (Auto) 88.3 H, Lymph % (Auto) 3.0 L, [place] % (Auto) 8.2, Eos % (Auto) 0.0, Baso % (Auto) 0.1, Absolute Neuts (auto) 8.1 H, Absolute Lymphs (auto) 0.27 L, Nucleated RBC % 1.0, Differential Comment COMMENT, Platelet Estimate ADEQUATE, Anisocytosis 1+, Macrocytosis 2+ 03/27/20 04:55: Sodium 134 L, Potassium 4.5, Chloride 100, Carbon Dioxide 27.0, Anion Gap 7, BUN 81 H, Creatinine 3.60 H, Estim Creat Clear Calc 17.15, Est GFR (MDRD) Af Amer 21 L, Est GFR (MDRD) Non-Af 18 L, BUN/Creatinine Ratio 22.5 H, Glucose 93, Calcium 7.7 L, Total Bilirubin 0.30, AST 25, ALT 40, Alkaline Phosphatase 82, Total Protein 7.2, Albumin 2.4 L, Globulin 4.8 H, Albumin/Globulin Ratio 0.5 L 03/27/20 06:55: POC Glucose 97 03/27/20 11:23: POC Glucose 139 H 03/27/20 12:40: Urine Color Red, Urine Clarity Turbid, Urine pH 7.0, Ur Specific [place] 1.015, Urine Protein 500 H, Urine Glucose (UA) Normal, Urine Ketones 15 H, Urine Occult Blood 150 H, Urine Nitrite Negative, Urine Bilirubin Negative, Urine Urobilinogen Normal, Ur Leukocyte Esterase Negative, Urine RBC > 100 SEEN, Urine WBC 0 SEEN, Ur Squamous Epith Cells 0 SEEN, Urine Bacteria 0 SEEN, Urine Mucus 0 SEEN Current Medications Acetaminophen (Acetaminophen 325 Mg Tablet) 650 mg PO Q6H PRN PRN PRN Reason: Pain Score 1-10/Temp > 100.7 F Last Admin: 03/27/20 11:14 Dose: 650 mg Documented by: Albuterol Sulfate (Albuterol 2.5 Mg/3 Ml Vial.Neb.) 2.5 mg INHALATION Q2H PRN PRN PRN Reason: DYSPNEA Apixaban (Apixaban 5 Mg Tablet) 5 mg PO BID [facility] Last Admin: 03/27/20 08:38 Dose: Not Given Documented by: Atorvastatin Calcium (Atorvastatin Calcium 20 Mg Tablet) 20 mg PO QHS [facility] Last Admin: 03/26/20 21:01 Dose: 20 mg Documented by: Calamine/Phenol (Menthol/Lanolin/Calamine/Znox 113 Gm Tube) 1 applic TOPICAL TID [facility]; Protocol Last Admin: 03/27/20 05:47 Dose: 1 applicatio Documented by: Dexamethasone (Dexamethasone 4 Mg Tablet) 6 mg PO DAILY [facility] Stop: 04/04/20 10:01 Last Admin: 03/27/20 08:37 Dose: 6 mg Documented by: Gabapentin (Gabapentin 600 Mg Tablet) 600 mg PO QHS [facility] Last Admin: 03/26/20 21:01 Dose: 600 mg Documented by: Sodium Chloride () 250 mls @ 15 mls/hr IV .[id number] PRN PRN Reason: Saline Flush Last Infusion: 03/24/20 23:29 Dose: Infused Documented by: Sodium Chloride () 250 mls @ 15 mls/hr IV .[id number] PRN PRN Reason: Additional IVPB Infusion Insulin Human Lispro (Insulin Lispro 100 Unit/Ml Insuln.Pen) 0 unit SC [facility]; Protocol Last Admin: 03/27/20 11:24 Dose: Not Given Documented by: L-Arginine/L-Glutamine/Calcium HMB ([place] (Unflavored) Packet) [facility] Last Admin: 03/27/20 08:37 Dose: 1 packet Documented by: Lidocaine HCl (Lidocaine Jelly 2% Tube 30 Ml) 0.25 tube TOPICAL TID [facility]; Protocol Last Admin: 03/27/20 05:47 Dose: 0.25 tube Documented by: Magnesium Chloride (Magnesium Chloride 64 Mg Delay Rel.Tablet) 128 mg PO DAILY@0800 [facility] Last Admin: 03/27/20 08:37 Dose: 128 mg Documented by: Ondansetron HCl (Ondansetron 4 Mg/2 Ml Vial) 4 mg IV Q8H PRN PRN PRN Reason: NAUSEA/VOMITING Pantoprazole Sodium (Pantoprazole Sodium 20 Mg Tablet) 20 mg PO BID [facility] Last Admin: 03/27/20 08:38 Dose: 20 mg Documented by: Sodium Chloride (0.9% Saline Lock 10 Ml Syringe) 10 - 40 ml IV UD PRN PRN Reason: SALINE FLUSH Last Admin: 03/25/20 11:58 Dose: 10 ml Documented by: Medical Necessity - Tobacco Use Smoking Status: Current every day smoker Assessment/Plan All Active Problems (Last Reviewed 03/10/20 @ 13:[address] Micky Mauro MD) Sepsis due to pneumonia (Acute) Acute kidney injury (Acute) Hypoxemia (Acute) Elevated troponin (Acute) COVID-19 (Acute) Elevated INR (Resolved) Skin tear of left elbow without complication (Resolved) 1. Acute kidney injury on chronic kidney disease stage 3. Baseline SCr has been around 1.8 mg/dL. Initial BRIANA was from ischemic ATN related to septic shock. BIRANA improved with increased UOP However, patient had 2nd septic shock with COVID-19 pneumonia which caused 2nd BRIANA likely from ATN RN WELLNESS initiated next HD tomorrow 2- Septic shock.Improved. off levophed ID is following for Abx 3- COVID-19 infection with hypoxia. On dexamethasone UF as tolerated
--- NOTE | 2020-03-27 15:52 | PCM.PN.HOSP ---
Patient Problems: Active and Suspected Problems (Last Reviewed 03/10/20 @ 13:[address] Micky Mauro MD) Sepsis due to pneumonia (Acute) Acute kidney injury (Acute) Hypoxemia (Acute) Elevated troponin (Acute) COVID-19 (Acute) Subjective: Still apathetic and depressed. Breathing about the same maintaining his oxygen sats on 6 L. No new events overnight Vitals/I&O's: Vital Signs Temp Pulse Resp BP Pulse Ox 98.1 F 106 H 16 115/55 L 95 03/27/20 15:29 03/27/20 15:29 03/27/20 15:29 03/27/20 15:29 03/27/20 15:29 Oxygen Flow Rate (L/min) 6 Oxygen Delivery Method Nasal Cannula Weight: 240 lb 8 oz Body Mass Index (BMI) 35.3 Intake and Output for Last 24 Hours 03/25/20 03/26/20 03/27/20 23:59 23:59 23:59 Intake Total 370 / 370 360 / 480 410 / 410 Output Total 1110 / 1110 120 / 130 125 / 125 Balance -740 / -740 240 / 350 285 / 285 General: Alert, oriented x3, no acute distress HEENT: Atraumatic, PERRLA, EOMI, normocephalic Oral: Moist Mucosa Neck: Supple, No JVD Lungs: Normal air movement, Diminished, no rhonchi, no wheezes Cardiovascular: Regular rate, regular Rhythm, Normal S1, Normal S2, No murmurs Abdomen: Soft, Non Tender, Non-Distended, No Hepato-splenomegaly Extremities: No edema, Capillary Refill Less than 3 Seconds Skin: No rashes, No breakdown Neurological: Neuro grossly intact, sensation intact Psych/Mental Status: Flat affect Microbiology Past 72 Hours 03/21/20 23:05 Blood Culture (Wb) - No Site/Description Given Blood Culture - Final No growth in 5 days. 03/21/20 23:55 Blood Culture (Wb) - No Site/Description Given Blood Culture - Final No growth in 5 days. 03/26/20 09:45 Stool Stool Occult Blood (PADMINI) - Final 03/24/20 Unknown Sputum, Expectorated/Coughed Gram Stain - Final 03/24/20 Unknown Sputum, Expectorated/Coughed Respiratory Culture - Final Presumptive C albicans Laboratory Results 03/26/20 21:05: POC Glucose 120 H 03/27/20 04:55: WBC 9.1, RBC 2.38 L, Hgb 8.4 L, Hct 28.0 L, MCV 117.6 H, MCH 35.3 H, MCHC 30.0 L, RDW Std Deviation 79.7 H, RDW Coeff of Reggie 18.4 H, Plt Count 217, MPV 10.8, Immature Gran % (Auto) 0.400, Neut % (Auto) 88.3 H, Lymph % (Auto) 3.0 L, [place] % (Auto) 8.2, Eos % (Auto) 0.0, Baso % (Auto) 0.1, Absolute Neuts (auto) 8.1 H, Absolute Lymphs (auto) 0.27 L, Nucleated RBC % 1.0, Differential Comment COMMENT, Platelet Estimate ADEQUATE, Anisocytosis 1+, Macrocytosis 2+ 03/27/20 04:55: Sodium 134 L, Potassium 4.5, Chloride 100, Carbon Dioxide 27.0, Anion Gap 7, BUN 81 H, Creatinine 3.60 H, Estim Creat Clear Calc 17.15, Est GFR (MDRD) Af Amer 21 L, Est GFR (MDRD) Non-Af 18 L, BUN/Creatinine Ratio 22.5 H, Glucose 93, Calcium 7.7 L, Total Bilirubin 0.30, AST 25, ALT 40, Alkaline Phosphatase 82, Total Protein 7.2, Albumin 2.4 L, Globulin 4.8 H, Albumin/Globulin Ratio 0.5 L 03/27/20 06:55: POC Glucose 97 03/27/20 11:23: POC Glucose 139 H 03/27/20 12:40: Urine Color Red, Urine Clarity Turbid, Urine pH 7.0, Ur Specific [place] 1.015, Urine Protein 500 H, Urine Glucose (UA) Normal, Urine Ketones 15 H, Urine Occult Blood 150 H, Urine Nitrite Negative, Urine Bilirubin Negative, Urine Urobilinogen Normal, Ur Leukocyte Esterase Negative, Urine RBC > 100 SEEN, Urine WBC 0 SEEN, Ur Squamous Epith Cells 0 SEEN, Urine Bacteria 0 SEEN, Urine Mucus 0 SEEN Current Medications Acetaminophen (Acetaminophen 325 Mg Tablet) 650 mg PO Q6H PRN PRN PRN Reason: Pain Score 1-10/Temp > 100.7 F Last Admin: 03/27/20 11:14 Dose: 650 mg Documented by: Albuterol Sulfate (Albuterol 2.5 Mg/3 Ml Vial.Neb.) 2.5 mg INHALATION Q2H PRN PRN PRN Reason: DYSPNEA Apixaban (Apixaban 5 Mg Tablet) 5 mg PO BID [facility] Last Admin: 03/27/20 08:38 Dose: Not Given Documented by: Atorvastatin Calcium (Atorvastatin Calcium 20 Mg Tablet) 20 mg PO QHS [facility] Last Admin: 03/26/20 21:01 Dose: 20 mg Documented by: Calamine/Phenol (Menthol/Lanolin/Calamine/Znox 113 Gm Tube) 1 applic TOPICAL TID [facility]; Protocol Last Admin: 03/27/20 05:47 Dose: 1 applicatio Documented by: Dexamethasone (Dexamethasone 4 Mg Tablet) 6 mg PO DAILY [facility] Stop: 04/04/20 10:01 Last Admin: 03/27/20 08:37 Dose: 6 mg Documented by: Gabapentin (Gabapentin 600 Mg Tablet) 600 mg PO QHS [facility] Last Admin: 03/26/20 21:01 Dose: 600 mg Documented by: Sodium Chloride () 250 mls @ 15 mls/hr IV .[id number] PRN PRN Reason: Saline Flush Last Infusion: 03/24/20 23:29 Dose: Infused Documented by: Sodium Chloride () 250 mls @ 15 mls/hr IV .[id number] PRN PRN Reason: Additional IVPB Infusion Insulin Human Lispro (Insulin Lispro 100 Unit/Ml Insuln.Pen) 0 unit SC [facility]; Protocol Last Admin: 03/27/20 11:24 Dose: Not Given Documented by: L-Arginine/L-Glutamine/Calcium HMB ([place] (Unflavored) Packet) 1 packet PO BIDCM [facility] Last Admin: 03/27/20 08:37 Dose: 1 packet Documented by: Lidocaine HCl (Lidocaine Jelly 2% Tube 30 Ml) 0.25 tube TOPICAL TID [facility]; Protocol Last Admin: 03/27/20 05:47 Dose: 0.25 tube Documented by: Magnesium Chloride (Magnesium Chloride 64 Mg Delay Rel.Tablet) 128 mg PO DAILY@0800 [facility] Last Admin: 03/27/20 08:37 Dose: 128 mg Documented by: Ondansetron HCl (Ondansetron 4 Mg/2 Ml Vial) 4 mg IV Q8H PRN PRN PRN Reason: NAUSEA/VOMITING Pantoprazole Sodium (Pantoprazole Sodium 20 Mg Tablet) 20 mg PO BID [facility] Last Admin: 03/27/20 08:38 Dose: 20 mg Documented by: Sodium Chloride (0.9% Saline Lock 10 Ml Syringe) 10 - 40 ml IV UD PRN PRN Reason: SALINE FLUSH Last Admin: 03/25/20 11:58 Dose: 10 ml Documented by: STROKE Vital Signs/Narrative: Vital Signs Temp Pulse Resp BP Pulse Ox 03/27/20 15:29 98.1 F 106 H 16 115/55 L 95 Medical Necessity - Tobacco Use Smoking Status: Current every day smoker Assessment/Plan All Active Problems (Last Reviewed 03/10/20 @ 13:[address] Micky Mauro MD) Sepsis due to pneumonia (Acute) Acute kidney injury (Acute) Hypoxemia (Acute) Elevated troponin (Acute) COVID-19 (Acute) Elevated INR (Resolved) Skin tear of left elbow without complication (Resolved) 1. 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 -He had his blood pressure dropped, he was on metoprolol, Cardizem, and Lasix secondary to his a flutter these were all discontinued however after fluid bolus his blood pressure did not come up therefore he was transferred to the ICU and started on Levophed -Levophed has been discontinued and his antibiotics were adjusted to add Zyvox secondary to his MRSA culture data, completed antimicrobials -We will continue to monitor his renal function, and hold any nephrotoxic agents, he did have a dialysis catheter placed and is received 2 treatments with dialysis so far and seems to be doing better, his BUN has improved and his creatinine has come down from 4.7-3.6 -On 6 L nasal cannula and encouraging incentive spirometer -He did test positive for COVID-19 2. History of paroxysmal A. fib/A-flutter/HTN/HLD/indeterminate troponin/nonischemic cardiomyopathy -His troponin was slightly elevated to 0.197 his BNP on admission was 2666, the troponin was likely secondary to his tachycardia as well as sepsis -When able we will need to restart his Lasix -Was started on IV amiodarone and transition to oral amiodarone however with initiation of dialysis, his blood pressure was dropping therefore his metoprolol and amiodarone were both held -In 2019, EF was 55% with pulmonary artery systolic pressure 46 mmHg 3. History of DVT/PE -Stable -Continue with Eliquis 4. Nonhealing surgical wounds of his lower back -We will consult wound care nurse for evaluation -These are secondary to surgical debridement for an abscess following lumbar spine surgery 5. Chronic alcoholic cirrhosis/anemia of chronic disease and anemia secondary to gross hematuria -Hold his Lasix and his lactulose secondary to his septic shock -His anemia is at baseline likely related to his cirrhosis as well as his chronic kidney disease -Is also concerned for a fecal occult however this was negative -We will continue with intermittent irrigation of his Garcia and if it does not clear up in a day or 2 will consider having urology evaluate him -Hemoglobin is stable at around 9. 6. GERD -Stable -Continue with PPI Dispo: Had a 20-minute discussion with him and his on advanced care planning. We discussed topics such as going to a fci versus hospice. He would prefer to go to a fci when stable to see if you get stronger and give it if a few weeks, if at that point he does not improve then they will reevaluate the role for hospice. DVT: SCDs Inpatient E&M: 09698 Subs Hosp L2 Procedures: 87891 Advncd Care Plan 30 Min
[2020-03-27] MEDS: 0.9% Saline Lock 10 ML Syringe IV (17:53)
[2020-03-27 18:06] LABS: Bedside Glucose 155 mg/dL (70-110)
[2020-03-27] MEDS: Atorvastatin Calcium 20 MG Tablet PO (20:56)
[2020-03-27] MEDS: Gabapentin 600 MG Tablet PO (20:56)
[2020-03-27 21:51] LABS: Bedside Glucose 151 mg/dL (70-110)
[2020-03-28] VITALS (13 sets, daily range): BP systolic 102–133; BP diastolic 52–82; PULSE 92–108; RESP 16–24; TEMP 35.6–36.8; O2SAT 94–100; BMI 36.6
[2020-03-28] MEDS: Acetaminophen 325 MG Tablet 650 MG PO ×4 (00:22→21:46)
[2020-03-28] MEDS: Menthol/Lanolin/Calamine/Znox 113 GM Tube 1 APPLIC TOPICAL ×3 (06:45→21:47)
[2020-03-28 07:16] LABS: Absolute Lymphocyte Count 0.26 X10^3/uL (0.83-4.51); Absolute Neutrophil Count 9.6 X10^3/uL (2.0-7.7); Basophil# 0.01 X10^3/uL; Basophil% 0.1 % (0-1); Hematocrit 26.7 % (40-54); Hemoglobin 8.1 g/dL (13.0-16.5); Lymphocyte # 0.26 X10^3/ul (4.0); Lymphocyte % 2.4 % (19-41); Mean Corp Hgb Conc 30.3 g/dL (32-36); Mean Corpuscular Hgb 35.4 pg (27.0-32.0); Mean Corpuscular Volume 116.6 fL (80-94); Monocyte# 0.72 X10^3/uL; Monocyte% 6.8 % (0-10); NRBC Flagged by Analyzer 0.9 % (0-5); Neutrophil % 90.1 % (47-70); POSITIVE DIFFERENTIAL YES; POSITIVE MORPHOLOGY YES; Platelet Count 213 K/mm3 (150-450); RBC Distribution Width CV 18.2 % (11.6-14.6); RBC Distribution Width SD 78.5 fl (35.1-43.9); Red Blood Count 2.29 M/mm3 (4.6-6.2); White Blood Count 10.7 K/mm3 (4.4-11.0)
[2020-03-28 07:21] LABS: Bedside Glucose 128 mg/dL (70-110)
[2020-03-28 07:28] LABS: Differential Indicated SCAN CRITERIA MET
[2020-03-28 07:43] LABS: ALB/GLOB Ratio 0.5 RATIO (0.9-2.4); AST(SGOT) 24 U/L (15-37); Alanine Aminotransfer ALT/SGPT 39 U/L (16-61); Albumin, Serum 2.3 g/dL (3.2-5.0); Alkaline Phosphatase 81 U/L (45-117); Anion Gap 9 (5-15); BUN 104 mg/dL (7-18); Chloride 101 mmol/L (98-107); Globulin 4.9 g/dL (2.2-4.2); Glucose 108 mg/dL (74-106); Potassium 4.9 mmol/L (3.5-5.1); Protein, Total 7.2 g/dL (6.4-8.2); Sodium Level 134 mmol/L (136-145)
[2020-03-28 07:47] LABS: Anisocytosis 1+; Target Cells RARE
--- NOTE | 2020-03-28 11:02 | CASEMGMT ---
[place] Nurse Practitioner spoke with patient and let him know that there are no local SNF's accepting COVID patients. He advised that SW talk with his . SW called patient's , introduced self and role at [facility]. SW explained that there are no local SNF's accepting COVID patients. SW also told her there are 2 near [place] that actually do dialysis in the facility. SW told her the name of the 2 facilities. She would look at them online and get back with SW. SW gave her SW's phone number. Plan: d/c to SNF when ready. Await 's input on which SNF and then need accepting facility. Aidee CARMONA MSW
--- NOTE | 2020-03-28 11:54 | PCM.PN.SRG ---
Patient Problems: Active and Suspected Problems (Last Reviewed 03/10/20 @ 13:[address] Micky Mauro MD) Sepsis due to pneumonia (Acute) Acute kidney injury (Acute) Hypoxemia (Acute) Elevated troponin (Acute) COVID-19 (Acute) Subjective: Reviewed chart and discussed patient with nursing. Due to Covid positive did not walk in the room as I had previously discussed the catheter with the patient and his . - Physical Exam Vitals/I&O's: Vital Signs Temp Pulse Resp BP Pulse Ox 98.0 F 98 24 H 115/56 L 97 03/28/20 09:13 03/28/20 09:13 03/28/20 09:13 03/28/20 09:13 03/28/20 09:13 Oxygen Flow Rate (L/min) 5 Oxygen Delivery Method Nasal Cannula Weight: 240 lb 15.444 oz Body Mass Index (BMI) 35.3 Intake and Output for Last 24 Hours 03/26/20 03/27/20 03/28/20 23:59 23:59 23:59 Intake Total 360 / 480 670 / 670 100 / 100 Output Total 120 / 130 300 / 300 200 / 200 Balance 240 / 350 370 / 370 -100 / -100 Microbiology Past 72 Hours 03/21/20 23:05 Blood Culture (Wb) - No Site/Description Given Blood Culture - Final No growth in 5 days. 03/21/20 23:55 Blood Culture (Wb) - No Site/Description Given Blood Culture - Final No growth in 5 days. 03/26/20 09:45 Stool Stool Occult Blood (PADMINI) - Final 03/24/20 Unknown Sputum, Expectorated/Coughed Gram Stain - Final 03/24/20 Unknown Sputum, Expectorated/Coughed Respiratory Culture - Final Presumptive C albicans Laboratory Results 03/27/20 12:40: Urine Color Red, Urine Clarity Turbid, Urine pH 7.0, Ur Specific [place] 1.015, Urine Protein 500 H, Urine Glucose (UA) Normal, Urine Ketones 15 H, Urine Occult Blood 150 H, Urine Nitrite Negative, Urine Bilirubin Negative, Urine Urobilinogen Normal, Ur Leukocyte Esterase Negative, Urine RBC > 100 SEEN, Urine WBC 0 SEEN, Ur Squamous Epith Cells 0 SEEN, Urine Bacteria 0 SEEN, Urine Mucus 0 SEEN 03/27/20 17:41: POC Glucose 155 H 03/27/20 20:59: POC Glucose 151 H 03/28/20 06:28: WBC 10.7, RBC 2.29 L, Hgb 8.1 L, Hct 26.7 L, MCV 116.6 H, MCH 35.4 H, MCHC 30.3 L, RDW Std Deviation 78.5 H, RDW Coeff of Reggie 18.2 H, Plt Count 213, MPV 11.0, Immature Gran % (Auto) 0.600, Neut % (Auto) 90.1 H, Lymph % (Auto) 2.4 L, [place] % (Auto) 6.8, Eos % (Auto) 0.0, Baso % (Auto) 0.1, Absolute Neuts (auto) 9.6 H, Absolute Lymphs (auto) 0.26 L, Nucleated RBC % 0.9, Anisocytosis 1+, Target Cells RARE 03/28/20 06:28: Sodium 134 L, Potassium 4.9, Chloride 101, Carbon Dioxide 24.0, Anion Gap 9, BUN 104 H*, Creatinine 4.45 H, Estim Creat Clear Calc 13.88, Est GFR (MDRD) Af Amer 17 L, Est GFR (MDRD) Non-Af 14 L, BUN/Creatinine Ratio 23.4 H, Glucose 108 H, Calcium 8.0 L, Total Bilirubin 0.30, AST 24, ALT 39, Alkaline Phosphatase 81, Total Protein 7.2, Albumin 2.3 L, Globulin 4.9 H, Albumin/Globulin Ratio 0.5 L 03/28/20 06:48: POC Glucose 128 H Current Medications Acetaminophen (Acetaminophen 325 Mg Tablet) 650 mg PO Q6H PRN PRN PRN Reason: Pain Score 1-10/Temp > 100.7 F Last Admin: 03/28/20 06:46 Dose: 650 mg Documented by: Albuterol Sulfate (Albuterol 2.5 Mg/3 Ml Vial.Neb.) 2.5 mg INHALATION Q2H PRN PRN PRN Reason: DYSPNEA Apixaban (Apixaban 5 Mg Tablet) 5 mg PO BID [facility] Last Admin: 03/27/20 20:55 Dose: Not Given Documented by: Atorvastatin Calcium (Atorvastatin Calcium 20 Mg Tablet) 20 mg PO QHS [facility] Last Admin: 03/27/20 20:56 Dose: 20 mg Documented by: Calamine/Phenol (Menthol/Lanolin/Calamine/Znox 113 Gm Tube) 1 applic TOPICAL TID [facility]; Protocol Last Admin: 03/28/20 06:45 Dose: 1 applicatio Documented by: Dexamethasone (Dexamethasone 4 Mg Tablet) 6 mg PO DAILY [facility] Stop: 04/04/20 10:01 Last Admin: 03/27/20 08:37 Dose: 6 mg Documented by: Gabapentin (Gabapentin 600 Mg Tablet) 600 mg PO QHS [facility] Last Admin: 03/27/20 20:56 Dose: 600 mg Documented by: Sodium Chloride () 250 mls @ 15 mls/hr IV .[id number] PRN PRN Reason: Saline Flush Last Infusion: 03/24/20 23:29 Dose: Infused Documented by: Sodium Chloride () 250 mls @ 15 mls/hr IV .[id number] PRN PRN Reason: Additional IVPB Infusion Insulin Human Lispro (Insulin Lispro 100 Unit/Ml Insuln.Pen) 0 unit SC ACHS [facility]; Protocol Last Admin: 03/28/20 06:49 Dose: Not Given Documented by: L-Arginine/L-Glutamine/Calcium HMB ([place] (Unflavored) Packet) [facility] Last Admin: 03/27/20 17:54 Dose: 1 packet Documented by: Lidocaine HCl (Lidocaine Jelly 2% Tube 30 Ml) 0.25 tube TOPICAL TID [facility]; Protocol Last Admin: 03/28/20 06:46 Dose: 0.25 tube Documented by: Magnesium Chloride (Magnesium Chloride 64 Mg Delay Rel.Tablet) 128 mg PO DAILY@0800 [facility] Last Admin: 03/27/20 08:37 Dose: 128 mg Documented by: Ondansetron HCl (Ondansetron 4 Mg/2 Ml Vial) 4 mg IV Q8H PRN PRN PRN Reason: NAUSEA/VOMITING Pantoprazole Sodium (Pantoprazole Sodium 20 Mg Tablet) 20 mg PO BID [facility] Last Admin: 03/27/20 20:56 Dose: 20 mg Documented by: Sodium Chloride (0.9% Saline Lock 10 Ml Syringe) 10 - 40 ml IV UD PRN PRN Reason: SALINE FLUSH Last Admin: 03/27/20 17:53 Dose: 40 ml Documented by: Medical Necessity - Tobacco Use Smoking Status: Current every day smoker Assessment/Plan All Active Problems (Last Reviewed 11/05/20 @ 13:[address] Micky Mauro MD) Sepsis due to pneumonia (Acute) Acute kidney injury (Acute) Hypoxemia (Acute) Elevated troponin (Acute) COVID-19 (Acute) Elevated INR (Resolved) Skin tear of left elbow without complication (Resolved) 74 y/o M with BRIANA on CKD request for dialysis catheter, +COVID 1. Will have patient's temporary dialysis line pulled after dialysis today and we will plan for a tunneled dialysis catheter in the OR tomorrow. Scheduled at 7:30 AM tomorrow. Previously discussed tunnel dialysis catheter with patient's as well as patient. Diana Rabago M.D. Pager: [phone] [facility] [address] [place] [address], [facility], [address] [place] [address] Office: [phone]
[2020-03-28 12:00] LABS: Bedside Glucose 130 mg/dL (70-110)
--- NOTE | 2020-03-28 12:45 | PN_ITS ---
<ManuelSena EARLY LEARNING TEACHER - Last Filed: 03/28/20 13:12> Patient Problems: Active and Suspected Problems (Last Reviewed 03/10/20 @ 13:[address] Micky blanchard MD) Sepsis due to pneumonia (Acute) Acute kidney injury (Acute) Hypoxemia (Acute) Elevated troponin (Acute) COVID-19 (Acute) Subjective: Patient seen and examined. He denies current symptoms or complaints. Agreeable to SNF at discharge. - Physical Exam Vitals/I&O's: Vital Signs Temp Pulse Resp BP Pulse Ox 98.0 F 98 24 H 115/56 L 97 03/28/20 09:13 03/28/20 09:13 03/28/20 09:13 03/28/20 09:13 03/28/20 09:13 Oxygen Flow Rate (L/min) 5 Oxygen Delivery Method Nasal Cannula Weight: 240 lb 15.444 oz Body Mass Index (BMI) 35.3 Intake and Output for Last 24 Hours 03/26/20 03/27/20 03/28/20 23:59 23:59 23:59 Intake Total 360 / 480 670 / 670 100 / 100 Output Total 120 / 130 300 / 300 200 / 200 Balance 240 / 350 370 / 370 -100 / -100 General: Alert, Oriented x3, Cooperative HEENT: Atraumatic, PERRLA, EOMI, Normocephalic Oral: Dry Mucosa Neck: Supple, No JVD, Negative Carotid Bruits Lungs: Clear to auscultation, Diminished Cardiovascular: No murmurs, - - A. fib, rate controlled Abdomen: Bowel Sounds Present, Soft, Non Tender, Non-Distended Extremities: No clubbing, No cyanosis, No edema, Capillary Refill Less than 3 Seconds Skin: - - Mid back chronic wound, dressing intact. Musculoskeletal: No Tenderness to Palpation of Joints or Extremities Neurological: Cranial nerves II-XII grossly intact, Neuro grossly intact Psych/Mental Status: Flat Affect Microbiology Past 72 Hours 03/21/20 23:05 Blood Culture (Wb) - No Site/Description Given Blood Culture - Final No growth in 5 days. 03/21/20 23:55 Blood Culture (Wb) - No Site/Description Given Blood Culture - Final No growth in 5 days. 03/26/20 09:45 Stool Stool Occult Blood (PADMINI) - Final 03/24/20 Unknown Sputum, Expectorated/Coughed Gram Stain - Final 03/24/20 Unknown Sputum, Expectorated/Coughed Respiratory Culture - Final Presumptive C albicans Laboratory Results 03/27/20 12:40: Urine Color Red, Urine Clarity Turbid, Urine pH 7.0, Ur Specific [place] 1.015, Urine Protein 500 H, Urine Glucose (UA) Normal, Urine Ketones 15 H, Urine Occult Blood 150 H, Urine Nitrite Negative, Urine Bilirubin Negative, Urine Urobilinogen Normal, Ur Leukocyte Esterase Negative, Urine RBC > 100 SEEN, Urine WBC 0 SEEN, Ur Squamous Epith Cells 0 SEEN, Urine Bacteria 0 SEEN, Urine Mucus 0 SEEN 03/27/20 17:41: POC Glucose 155 H 03/27/20 20:59: POC Glucose 151 H 03/28/20 06:28: WBC 10.7, RBC 2.29 L, Hgb 8.1 L, Hct 26.7 L, MCV 116.6 H, MCH 35.4 H, MCHC 30.3 L, RDW Std Deviation 78.5 H, RDW Coeff of Reggie 18.2 H, Plt Count 213, MPV 11.0, Immature Gran % (Auto) 0.600, Neut % (Auto) 90.1 H, Lymph % (Auto) 2.4 L, [place] % (Auto) 6.8, Eos % (Auto) 0.0, Baso % (Auto) 0.1, Absolute Neuts (auto) 9.6 H, Absolute Lymphs (auto) 0.26 L, Nucleated RBC % 0.9, Anisocytosis 1+, Target Cells RARE 03/28/20 06:28: Sodium 134 L, Potassium 4.9, Chloride 101, Carbon Dioxide 24.0, Anion Gap 9, BUN 104 H*, Creatinine 4.45 H, Estim Creat Clear Calc 13.88, Est GFR (MDRD) Af Amer 17 L, Est GFR (MDRD) Non-Af 14 L, BUN/Creatinine Ratio 23.4 H , Glucose 108 H, Calcium 8.0 L, Total Bilirubin 0.30, AST 24, ALT 39, Alkaline Phosphatase 81, Total Protein 7.2, Albumin 2.3 L, Globulin 4.9 H, Albumin/Globulin Ratio 0.5 L 03/28/20 06:48: POC Glucose 128 H 03/28/20 11:23: POC Glucose 130 H Current Medications Acetaminophen (Acetaminophen 325 Mg Tablet) 650 mg PO Q6H PRN PRN PRN Reason: Pain Score 1-10/Temp > 100.7 F Last Admin: 03/28/20 06:46 Dose: 650 mg Documented by: Albuterol Sulfate (Albuterol 2.5 Mg/3 Ml Vial.Neb.) 2.5 mg INHALATION Q2H PRN PRN PRN Reason: DYSPNEA Apixaban (Apixaban 5 Mg Tablet) 5 mg PO BID [facility] Last Admin: 03/27/20 20:55 Dose: Not Given Documented by: Atorvastatin Calcium (Atorvastatin Calcium 20 Mg Tablet) 20 mg PO QHS [facility] Last Admin: 03/27/20 20:56 Dose: 20 mg Documented by: Calamine/Phenol (Menthol/Lanolin/Calamine/Znox 113 Gm Tube) 1 applic TOPICAL TID [facility]; Protocol Last Admin: 03/28/20 06:45 Dose: 1 applicatio Documented by: Dexamethasone (Dexamethasone 4 Mg Tablet) 6 mg PO DAILY [facility] Stop: 04/04/20 10:01 Last Admin: 03/27/20 08:37 Dose: 6 mg Documented by: Gabapentin (Gabapentin 600 Mg Tablet) 600 mg PO QHS [facility] Last Admin: 03/27/20 20:56 Dose: 600 mg Documented by: Sodium Chloride () 250 mls @ 15 mls/hr IV .[id number] PRN PRN Reason: Saline Flush Last Infusion: 03/24/20 23:29 Dose: Infused Documented by: Sodium Chloride () 250 mls @ 15 mls/hr IV .[id number] PRN PRN Reason: Additional IVPB Infusion Insulin Human Lispro (Insulin Lispro 100 Unit/Ml Insuln.Pen) 0 unit SC [facility]; Protocol Last Admin: 03/28/20 06:49 Dose: Not Given Documented by: L-Arginine/L-Glutamine/Calcium HMB ([place] (Unflavored) Packet) [facility] Last Admin: 03/27/20 17:54 Dose: 1 packet Documented by: Lidocaine HCl (Lidocaine Jelly 2% Tube 30 Ml) 0.25 tube TOPICAL TID [facility]; Protocol Last Admin: 03/28/20 06:46 Dose: 0.25 tube Documented by: Magnesium Chloride (Magnesium Chloride 64 Mg Delay Rel.Tablet) 128 mg PO DAILY@0800 [facility] Last Admin: 03/27/20 08:37 Dose: 128 mg Documented by: Ondansetron HCl (Ondansetron 4 Mg/2 Ml Vial) 4 mg IV Q8H PRN PRN PRN Reason: NAUSEA/VOMITING Pantoprazole Sodium (Pantoprazole Sodium 20 Mg Tablet) 20 mg PO BID [facility] Last Admin: 03/27/20 20:56 Dose: 20 mg Documented by: Sodium Chloride (0.9% Saline Lock 10 Ml Syringe) 10 - 40 ml IV UD PRN PRN Reason: SALINE FLUSH Last Admin: 03/27/20 17:53 Dose: 40 ml Documented by: Medical Necessity - Tobacco Use Smoking Status: Current every day smoker Assessment/Plan All Active Problems (Last Reviewed 03/10/20 @ 13:[address] Micky Mauro MD) Sepsis due to pneumonia (Acute) Acute kidney injury (Acute) Hypoxemia (Acute) Elevated troponin (Acute) COVID-19 (Acute) Elevated INR (Resolved) Skin tear of left elbow without complication (Resolved) 1. Acute hypoxic respiratory failure secondary to MRSA pneumonia and COVID-19 pneumonia-ID and pulmonary medicine consulted. On dexamethasone. Received plasma 03/22/2020. Linezolid course completed. Continue supplement oxygen to maintain O2 sat above 90%. 2. Septic shock-secondary to above. Resolved. 3. Acute kidney injury on chronic kidney disease stage III-nephrology following. Acute kidney injury secondary to ischemic ATN from septic shock. General surgery following. Plan to [place] temporary dialysis line after dialysis today and patient will go for tunneled dialysis catheter tomorrow. 4. Chronic alcoholism with hepatic cirrhosis- lactulose, Lasix have been held due to hypotension. 5. Nonhealing surgical wound of lower back-following at wound center. Patient had surgical debridement for abscess following lumbar spine surgery. Original surgery was in 2016 and since then he has had multiple complications. Wound RN consult. 6. History of paroxysmal atrial fibrillation/atrial flutter/paroxysmal SVT- continue Eliquis. Off of beta-cyndi due to hypotension. 7. 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 8. Chronic anemia-Following with hematology, Dr. Prah. Pantoja. 9. History of nonischemic cardiomyopathy-echocardiogram February 2019 demonstrated an EF of 55%, moderate tricuspid valve insufficiency, pulmonary artery systolic pressure 46 mmHg. Patient previously had an EF of 25% which improved as noted. 10. Hypertension-stable. 11. Hyperlipidemia-continue statin regimen. 12. History of non-Hodgkin's lymphoma status post splenectomy DVT prophylaxis- Eliquis Discharge planning: SNF when medically stable, pending facility acceptance/pre- cert. This patient was seen by DANNIELLE Melgar under the supervision of Dr. Cisneros. <Ady Cisneros - Last Filed: 03/28/20 16:30> - Physical Exam Vitals/I&O's: Vital Signs Temp Pulse Resp BP Pulse Ox 35.6 C L 100 18 102/62 98 03/28/20 15:00 03/28/20 15:00 03/28/20 15:00 03/28/20 15:00 03/28/20 13:15 Oxygen Flow Rate (L/min) 5 Oxygen Delivery Method Nasal Cannula Weight: 109.3 kg Body Mass Index (BMI) 35.3 Intake and Output for Last 24 Hours 03/26/20 03/27/20 03/28/20 23:59 23:59 23:59 Intake Total 360 / 480 670 / 670 340 / 340 Output Total 120 / 130 300 / 300 1740 / 1740 Balance 240 / 350 370 / 370 -1400 / -1400 General: Alert, Cooperative HEENT: Atraumatic, Normocephalic Oral: Dry Mucosa Lungs: Clear to auscultation, Diminished Cardiovascular: No murmurs, - Abdomen: Bowel Sounds Present, Soft, Non Tender, Non-Distended Skin: - Psych/Mental Status: Flat Affect Microbiology Past 72 Hours 03/21/20 23:05 Blood Culture (Wb) - No Site/Description Given Blood Culture - Final No growth in 5 days. 03/21/20 23:55 Blood Culture (Wb) - No Site/Description Given Blood Culture - Final No growth in 5 days. 03/26/20 09:45 Stool Stool Occult Blood (PADMINI) - Final 03/24/20 Unknown Sputum, Expectorated/Coughed Gram Stain - Final 03/24/20 Unknown Sputum, Expectorated/Coughed Respiratory Culture - Final Presumptive C albicans Laboratory Results 03/25/20 21:15: Hep B Core Total Ab Negative 03/27/20 17:41: POC Glucose 155 H 03/27/20 20:59: POC Glucose 151 H 03/28/20 06:28: WBC 10.7, RBC 2.29 L, Hgb 8.1 L, Hct 26.7 L, MCV 116.6 H, MCH 35.4 H, MCHC 30.3 L, RDW Std Deviation 78.5 H, RDW Coeff of Reggie 18.2 H, Plt Count 213, MPV 11.0, Immature Gran % (Auto) 0.600, Neut % (Auto) 90.1 H, Lymph % (Auto) 2.4 L, [place] % (Auto) 6.8, Eos % (Auto) 0.0, Baso % (Auto) 0.1, Absolute Neuts (auto) 9.6 H, Absolute Lymphs (auto) 0.26 L, Nucleated RBC % 0.9, Anisocytosis 1+, Target Cells RARE 03/28/20 06:28: Sodium 134 L, Potassium 4.9, Chloride 101, Carbon Dioxide 24.0, Anion Gap 9, BUN 104 H*, Creatinine 4.45 H, Estim Creat Clear Calc 13.88, Est GFR (MDRD) Af Amer 17 L, Est GFR (MDRD) Non-Af 14 L, BUN/Creatinine Ratio 23.4 H , Glucose 108 H, Calcium 8.0 L, Total Bilirubin 0.30, AST 24, ALT 39, Alkaline Phosphatase 81, Total Protein 7.2, Albumin 2.3 L, Globulin 4.9 H, Albumin/Globulin Ratio 0.5 L 03/28/20 06:48: POC Glucose 128 H 03/28/20 11:23: POC Glucose 130 H Current Medications Acetaminophen (Acetaminophen 325 Mg Tablet) 650 mg PO Q6H PRN PRN PRN Reason: Pain Score 1-10/Temp > 100.7 F Last Admin: 03/28/20 13:05 Dose: 650 mg Documented by: Albuterol Sulfate (Albuterol 2.5 Mg/3 Ml Vial.Neb.) 2.5 mg INHALATION Q2H PRN PRN PRN Reason: DYSPNEA Apixaban (Apixaban 5 Mg Tablet) 5 mg PO BID [facility] Last Admin: 03/28/20 16:05 Dose: Not Given Documented by: Atorvastatin Calcium (Atorvastatin Calcium 20 Mg Tablet) 20 mg PO QHS [facility] Last Admin: 03/27/20 20:56 Dose: 20 mg Documented by: Calamine/Phenol (Menthol/Lanolin/Calamine/Znox 113 Gm Tube) 1 applic TOPICAL TID [facility]; Protocol Last Admin: 03/28/20 16:07 Dose: 1 applicatio Documented by: Dexamethasone (Dexamethasone 4 Mg Tablet) 6 mg PO DAILY [facility] Stop: 03/30/20 10:01 Last Admin: 03/28/20 16:04 Dose: 6 mg Documented by: Gabapentin (Gabapentin 600 Mg Tablet) 600 mg PO QHS [facility] Last Admin: 03/27/20 20:56 Dose: 600 mg Documented by: Sodium Chloride () 250 mls @ 15 mls/hr IV .[id number] PRN PRN Reason: Saline Flush Last Infusion: 03/24/20 23:29 Dose: Infused Documented by: Sodium Chloride () 250 mls @ 15 mls/hr IV .[id number] PRN PRN Reason: Additional IVPB Infusion Insulin Human Lispro (Insulin Lispro 100 Unit/Ml Insuln.Pen) 0 unit SC ACHS [facility]; Protocol Last Admin: 03/28/20 16:09 Dose: Not Given Documented by: L-Arginine/L-Glutamine/Calcium HMB ([place] (Unflavored) Packet) 1 packet PO BIDCM [facility] Last Admin: 03/28/20 16:06 Dose: Not Given Documented by: Lidocaine HCl (Lidocaine Jelly 2% Tube 30 Ml) 0.25 tube TOPICAL TID [facility]; Protocol Last Admin: 03/28/20 16:09 Dose: 0.25 tube Documented by: Magnesium Chloride (Magnesium Chloride 64 Mg Delay Rel.Tablet) 128 mg PO DAILY@0800 [facility] Last Admin: 03/28/20 16:06 Dose: 128 mg Documented by: Ondansetron HCl (Ondansetron 4 Mg/2 Ml Vial) 4 mg IV Q8H PRN PRN PRN Reason: NAUSEA/VOMITING Pantoprazole Sodium (Pantoprazole Sodium 20 Mg Tablet) 20 mg PO BID [facility] Last Admin: 03/28/20 16:05 Dose: 20 mg Documented by: Sodium Chloride (0.9% Saline Lock 10 Ml Syringe) 10 - 40 ml IV UD PRN PRN Reason: SALINE FLUSH Last Admin: 03/27/20 17:53 Dose: 40 ml Documented by: Assessment/Plan Patient seen and examined independently. Data reviewed. I agree with the above note by the nurse practitioner. 1. Acute hypoxic respiratory failure secondary to MRSA pneumonia and COVID-19. 2. Septic shock: Resolved 3. Acute kidney injury: Likely related to ATN but still requiring dialysis. Patient to have a tunneled dialysis catheter on the . Inpatient E&M: 41765 Subs Hosp L2
[2020-03-28 14:28] LABS: Hepatitis B Core Ab Total Negative (Negative)
--- NOTE | 2020-03-28 15:16 | CASEMGMT ---
SW received a call from patient's . She asked if Hospice was an option. SW told her it is, but that would mean patient will not get dialysis or any other treatments. She was not aware he would not do dialysis if he was on Hospice. She said she just does not like the idea of him going to some place they don't know in [place]. GOLD listened and provided support. Aidee TOVAR
--- NOTE | 2020-03-28 15:38 | DIALYSIS ---
Pt tolerated 3.5hr HD tx fairly well, w/ occasional drops in SBP. Net UF -1300ml. RIJ CVC dc'd post tx intact and w/o difficulty. Pressure held x 10mins, hemostasis achieved. No bleeding or new bruising noted. DSD applied. See flow record for tx data.
[2020-03-28] MEDS: dexAMETHasone 4 MG Tablet 6 MG PO (16:04)
[2020-03-28] MEDS: Pantoprazole Sodium 20 MG Tablet PO ×2 (16:05→21:46)
[2020-03-28] MEDS: Magnesium Chloride 64 MG Delay Rel.Tablet 128 MG PO (16:06)
[2020-03-28 16:30] LABS: Bedside Glucose 111 mg/dL (70-110)
--- NOTE | 2020-03-28 16:31 | PCM.PN.REN ---
Patient Problems: Active and Suspected Problems (Last Reviewed 03/10/20 @ 13:[address] Micky Mauro MD) Sepsis due to pneumonia (Acute) Acute kidney injury (Acute) Hypoxemia (Acute) Elevated troponin (Acute) COVID-19 (Acute) Subjective: no new events - Physical Exam Vitals/I&O's: Vital Signs Temp Pulse Resp BP Pulse Ox 96.1 F L 100 18 102/62 98 03/28/20 15:00 03/28/20 15:00 03/28/20 15:00 03/28/20 15:00 03/28/20 13:15 Oxygen Flow Rate (L/min) 5 Oxygen Delivery Method Nasal Cannula Weight: 109.3 kg Body Mass Index (BMI) 35.3 Intake and Output for Last 24 Hours 03/26/20 03/27/20 03/28/20 23:59 23:59 23:59 Intake Total 360 / 480 670 / 670 340 / 340 Output Total 120 / 130 300 / 300 1740 / 1740 Balance 240 / 350 370 / 370 -1400 / -1400 General: Alert, Oriented x3, Cooperative HEENT: Atraumatic, PERRLA, EOMI, Normocephalic Neck: Supple, No JVD, Negative Carotid Bruits Lungs: Clear to auscultation, Normal air movement Cardiovascular: Regular rate, No murmurs Abdomen: Bowel Sounds Present, Soft, Non Tender Extremities: No edema, Capillary Refill Less than 3 Seconds Skin: No rashes, No breakdown Musculoskeletal: No Tenderness to Palpation of Joints or Extremities Neurological: Cranial nerves II-XII grossly intact Psych/Mental Status: Normal Affect, Appropriate Microbiology Past 72 Hours 03/21/20 23:05 Blood Culture (Wb) - No Site/Description Given Blood Culture - Final No growth in 5 days. 03/21/20 23:55 Blood Culture (Wb) - No Site/Description Given Blood Culture - Final No growth in 5 days. 03/26/20 09:45 Stool Stool Occult Blood (PADMINI) - Final 03/24/20 Unknown Sputum, Expectorated/Coughed Gram Stain - Final 03/24/20 Unknown Sputum, Expectorated/Coughed Respiratory Culture - Final Presumptive C albicans Laboratory Results 03/25/20 21:15: Hep B Core Total Ab Negative 03/27/20 17:41: POC Glucose 155 H 03/27/20 20:59: POC Glucose 151 H 03/28/20 06:28: WBC 10.7, RBC 2.29 L, Hgb 8.1 L, Hct 26.7 L, MCV 116.6 H, MCH 35.4 H, MCHC 30.3 L, RDW Std Deviation 78.5 H, RDW Coeff of Reggie 18.2 H, Plt Count 213, MPV 11.0, Immature Gran % (Auto) 0.600, Neut % (Auto) 90.1 H, Lymph % (Auto) 2.4 L, Bibb % (Auto) 6.8, Eos % (Auto) 0.0, Baso % (Auto) 0.1, Absolute Neuts (auto) 9.6 H, Absolute Lymphs (auto) 0.26 L, Nucleated RBC % 0.9, Anisocytosis 1+, Target Cells RARE 03/28/20 06:28: Sodium 134 L, Potassium 4.9, Chloride 101, Carbon Dioxide 24.0, Anion Gap 9, BUN 104 H*, Creatinine 4.45 H, Estim Creat Clear Calc 13.88, Est GFR (MDRD) Af Amer 17 L, Est GFR (MDRD) Non-Af 14 L, BUN/Creatinine Ratio 23.4 H, Glucose 108 H, Calcium 8.0 L, Total Bilirubin 0.30, AST 24, ALT 39, Alkaline Phosphatase 81, Total Protein 7.2, Albumin 2.3 L, Globulin 4.9 H, Albumin/Globulin Ratio 0.5 L 03/28/20 06:48: POC Glucose 128 H 03/28/20 11:23: POC Glucose 130 H 03/28/20 16:08: POC Glucose 111 H Current Medications Acetaminophen (Acetaminophen 325 Mg Tablet) 650 mg PO Q6H PRN PRN PRN Reason: Pain Score 1-10/Temp > 100.7 F Last Admin: 03/28/20 13:05 Dose: 650 mg Documented by: Albuterol Sulfate (Albuterol 2.5 Mg/3 Ml Vial.Neb.) 2.5 mg INHALATION Q2H PRN PRN PRN Reason: DYSPNEA Apixaban (Apixaban 5 Mg Tablet) 5 mg PO BID [facility] Last Admin: 03/28/20 16:05 Dose: Not Given Documented by: Atorvastatin Calcium (Atorvastatin Calcium 20 Mg Tablet) 20 mg PO QHS [facility] Last Admin: 03/27/20 20:56 Dose: 20 mg Documented by: Calamine/Phenol (Menthol/Lanolin/Calamine/Znox 113 Gm Tube) 1 applic TOPICAL TID [facility]; Protocol Last Admin: 03/28/20 16:07 Dose: 1 applicatio Documented by: Dexamethasone (Dexamethasone 4 Mg Tablet) 6 mg PO DAILY [facility] Stop: 03/30/20 10:01 Last Admin: 03/28/20 16:04 Dose: 6 mg Documented by: Gabapentin (Gabapentin 600 Mg Tablet) 600 mg PO QHS [facility] Last Admin: 03/27/20 20:56 Dose: 600 mg Documented by: Sodium Chloride () 250 mls @ 15 mls/hr IV .[id number] PRN PRN Reason: Saline Flush Last Infusion: 03/24/20 23:29 Dose: Infused Documented by: Sodium Chloride () 250 mls @ 15 mls/hr IV .[id number] PRN PRN Reason: Additional IVPB Infusion Insulin Human Lispro (Insulin Lispro 100 Unit/Ml Insuln.Pen) 0 unit SC [facility]; Protocol Last Admin: 03/28/20 16:09 Dose: Not Given Documented by: L-Arginine/L-Glutamine/Calcium HMB (Jackson (Unflavored) Packet) 1 packet PO BIDCM [facility] Last Admin: 03/28/20 16:06 Dose: Not Given Documented by: Lidocaine HCl (Lidocaine Jelly 2% Tube 30 Ml) 0.25 tube TOPICAL TID [facility]; Protocol Last Admin: 03/28/20 16:09 Dose: 0.25 tube Documented by: Magnesium Chloride (Magnesium Chloride 64 Mg Delay Rel.Tablet) 128 mg PO DAILY@0800 [facility] Last Admin: 03/28/20 16:06 Dose: 128 mg Documented by: Ondansetron HCl (Ondansetron 4 Mg/2 Ml Vial) 4 mg IV Q8H PRN PRN PRN Reason: NAUSEA/VOMITING Pantoprazole Sodium (Pantoprazole Sodium 20 Mg Tablet) 20 mg PO BID [facility] Last Admin: 03/28/20 16:05 Dose: 20 mg Documented by: Sodium Chloride (0.9% Saline Lock 10 Ml Syringe) 10 - 40 ml IV UD PRN PRN Reason: SALINE FLUSH Last Admin: 03/27/20 17:53 Dose: 40 ml Documented by: Medical Necessity - Tobacco Use Smoking Status: Current every day smoker Assessment/Plan All Active Problems (Last Reviewed 03/10/20 @ 13:[address] Micky Mauro MD) Sepsis due to pneumonia (Acute) Acute kidney injury (Acute) Hypoxemia (Acute) Elevated troponin (Acute) COVID-19 (Acute) Elevated INR (Resolved) Skin tear of left elbow without complication (Resolved) 1. Acute kidney injury on chronic kidney disease stage 3. Baseline SCr has been around 1.8 mg/dL. Initial BRIANA was from ischemic ATN related to septic shock. 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 off levophed ID is following for Abx 3- COVID-19 infection with hypoxia. On dexamethasone UF as tolerated
[2020-03-28 17:05] LABS: BUN/Creat Ratio 83.2 RATIO (10-20); Creatinine, Serum 1.25 mg/dL (0.70-1.30); EST Glomerular Filtration Rate 60 mL/min (>60); Est Glom Filt Rate - Afr Amer 73 mL/min (>60)
--- NOTE | 2020-03-28 17:05 | CASEMGMT ---
RN CM Note: referral packet started for dialysis @ SNF. Call to [facility]. Their Dialysis company is [facility]. Admission Liason is Bruce Sepulveda Phone numbers are and . -The [facility] use [facility]. -Dialysis will need set up with company prior to discharge to facility. Pattie CLINTONN RN ACM
--- NOTE | 2020-03-28 21:00 | NURSING ---
pt frequently using call light, very anxious. support provided. hospitalist was in at shift change to talk with pt and provided support. was requesting sleeping pill or nerve pill. IV hadol administered- see JUL.
[2020-03-28] MEDS: 0.9% Saline Lock 10 ML Syringe IV ×2 (21:45→21:47)
[2020-03-28] MEDS: Haloperidol Lactate 5 MG/ML Vial 2 MG IV (21:45)
[2020-03-28] MEDS: Gabapentin 600 MG Tablet PO (21:46)
[2020-03-28] MEDS: Atorvastatin Calcium 20 MG Tablet PO (21:46)
[2020-03-28 22:11] LABS: Bedside Glucose 126 mg/dL (70-110)
[2020-03-29] VITALS (20 sets, daily range): BP systolic 98–138; BP diastolic 50–108; PULSE 86–124; RESP 16–31; TEMP 36.1–36.7; O2SAT 92–100; BMI 36.6
--- NOTE | 2020-03-29 03:43 | NURSING ---
PT HAS BEEN UP ALL NIGHT. NO SLEEPING. 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 PT ANXIOUS. HALDOL GIVEN EARLIER WITH NO SLEEP AND REMAINS RESTLESS.. PT FIDGETING IN BED WITH CALL DAMON. INFORMED PT WHEN WE WILL RETURN AND PT CONTINUES TO ABUSE THE CALL DAMON. PT CALLED OUT ABOUT WHEN HIS SURGERY IS PT HAS BEEN TOLD MANY TIMES. PT REMOVES HIS BLANKETS THEN CALLS TO BE COVERED BACK UP.
[2020-03-29] MEDS: 0.9% Saline Lock 10 ML Syringe IV (04:32)
--- NOTE | 2020-03-29 04:33 | NURSING ---
PT ASKED TO SPEAK TO MD. PT SAID HE WANTS TO DISCHARGED TODAY EITHER TO ECF OR HOME. I AM TIRED OF BEING HERE.
[2020-03-29] MEDS: Menthol/Lanolin/Calamine/Znox 113 GM Tube 1 APPLIC TOPICAL ×3 (06:05→20:55)
[2020-03-29 06:17] LABS: Absolute Lymphocyte Count 0.17 X10^3/uL (0.83-4.51); Absolute Neutrophil Count 11.2 X10^3/uL (2.0-7.7); Basophil# 0.01 X10^3/uL; Basophil% 0.1 % (0-1); Hematocrit 25.8 % (40-54); Hemoglobin 7.9 g/dL (13.0-16.5); Lymphocyte # 0.17 X10^3/ul (4.0); Lymphocyte % 1.4 % (19-41); Mean Corp Hgb Conc 30.6 g/dL (32-36); Mean Corpuscular Hgb 35.9 pg (27.0-32.0); Mean Corpuscular Volume 117.3 fL (80-94); Mean Platelet Vol. 10.9 fl (6.2-12.0); Monocyte# 0.47 X10^3/uL; Monocyte% 3.9 % (0-10); NRBC Flagged by Analyzer 0.8 % (0-5); Neutrophil # 11.24 X10^3/uL (2.7-7.7); Neutrophil % 94.1 % (47-70); POSITIVE DIFFERENTIAL YES; POSITIVE MORPHOLOGY YES; Platelet Count 154 K/mm3 (150-450); RBC Distribution Width CV 18.1 % (11.6-14.6)
[2020-03-29 06:25] LABS: Bedside Glucose 110 mg/dL (70-110)
[2020-03-29 06:26] LABS: Differential Indicated SCAN CRITERIA MET
[2020-03-29 06:44] LABS: ALB/GLOB Ratio 0.6 RATIO (0.9-2.4); AST(SGOT) 28 U/L (15-37); Alanine Aminotransfer ALT/SGPT 41 U/L (16-61); Albumin, Serum 2.5 g/dL (3.2-5.0); Alkaline Phosphatase 85 U/L (45-117); Anion Gap 6 (5-15); BUN 65 mg/dL (7-18); BUN/Creat Ratio 18.7 RATIO (10-20); Calcium,Total 7.5 mg/dL (8.5-10.1); Chloride 99 mmol/L (98-107); Creatinine, Serum 3.47 mg/dL (0.70-1.30); EST Glomerular Filtration Rate 18 mL/min (>60); Est Glom Filt Rate - Afr Amer 22 mL/min (>60); Globulin 4.2 g/dL (2.2-4.2); Glucose 113 mg/dL (74-106); Potassium 4.6 mmol/L (3.5-5.1); Protein, Total 6.7 g/dL (6.4-8.2); Sodium Level 134 mmol/L (136-145)
[2020-03-29 06:47] LABS: Differential Comment SCANNED; Hypochromasia RARE
--- NOTE | 2020-03-29 07:05 | ED.RN ---
DR MOCTEZUMA CALLED TO SEE IF WAS NOTIFIED OF PT HAVING A DIALYSIS CATH. THIS NURSE CALLED AND NOTIFIED OF CATH BEING PLACED THIS AM AND GOT PERMISSION OVER THE PHONE FROM HER ALSO.
[2020-03-29] MEDS: Lidocaine 1% (20 ml mdv) 20 ML Vial (08:04)
[2020-03-29] MEDS: Bupiv/Epi 0.25% 30 ML Vial (08:04)
[2020-03-29] MEDS: Cefazolin 1 GM/5 ML Vial (08:05)
--- NOTE | 2020-03-29 08:30 | RAD_ITS ---
EXAM DESCRIPTION: PORTABLE AP CHEST CLINICAL HISTORY: 74 years Male, Hemodiaylysis Cath insertion, did not order post op chest xray. Hemodiaylysis Cath insertion, did not order post op chest xray. COMPARISON: Previous chest x-ray obtained on 03/25/2020 FINDINGS: A single fluoroscopic image was performed utilizing 79 KVP and 2.90 MA. A right IJ hemodialysis catheter is noted in place projecting over the lateral aspect of the superior vena cava. A right PICC line is also seen in place with its tip at the cavoatrial junction. Only the superior mediastinum was visualized which appears to be normal. The superior lungs are also seen and appear to be normal. The lung bases were not visualized on this single C-arm x-ray. RAD/Chest 1 View IMPRESSION: A single C-arm x-ray is noted with a hemodialysis catheter and a right PICC line catheter in place in good position. Electronically Signed: Wade Raza, at 10:38 EST Tel , Service support ,
--- NOTE | 2020-03-29 09:07 | PCM.OPRPT ---
Report of Operation Date of Procedure: 03/29/20 Pre-Operative Diagnosis: Acute on Chronic kidney disease Post-Operative Diagnosis: Same Surgery/Procedure Performed:: Insertion of right IJ dialysis catheter Type of Anesthesia:: Local MAC Anesthesiologist: Ady Mitchell Special Medications: ancef 2 grams IV x 1 Estimated Blood Loss (mL): 20 cc Fluids Replaced: per anesthesia Description of Procedure: After informed consent was given, the patient was brought to the operating room and placed in the supine position. Appropriate time out protocol was followedIncluding for Covid positive. He was then given IV conscious sedation for anesthesia. The patient's right upper chest and neck were then prepped with a surgical skin preparation and sterile surgical drapes were placed. After proper landmarks were ascertained, the skin at the upper right chest area was then infiltrated with 1:1 mixture of 1% lidocaine with epinephrine and 0.5% maricaine. A needle trocar was then inserted into the [right] internal jugular vein with ultrasound guidance-multiple vessels were viewed with u/s and the right IJ was chosen-- and there was good aspiration of venous blood. A wire was then threaded into the needle trocar and this was visualized under fluoroscopy to ensure that the wire was in the superior vena cava. Once this was done, then the needle trocar was removed. A small incision was made with an 11 blade knife at the wire entrance site. The dilator x2 with the introducer sheath attached was then placed over the wire into the right internal jugular vein via the Seldinger technique and this was visualized under fluoroscopy. Next the introducer and sheath were in proper position as visualized by fluoroscopy. The location of the cuffed was estimated on the skin, an incision was made with a 15 blade scalpel. The 14.5 Fr x 19 cm Palindrome dual lumen (Lot [id number]) was tunneled from the chest incision to the right neck incision. The sheath was removed. The catheter was placed through the introducer and was positioned with its tip at the junction of the superior vena cava and the right atrium as visualized under fluoroscopy. The cuff of the catheter was in the subcutaneous tissue. The catheter flushed and radha well with saline. Catheter was also flushed with 1.6 cc of 1-10,000 of heparin. Hemostasis was assured. Silver dressing was placed at the catheter exit site. Catheter was sutured with 3-0 nylon sutures. The neck incision was sutured with interrupted 3-0 Vicryl interrupted sutures x2 and Steri-Strips were placed. A large OpSite was placed over the catheter site after a silver dressing was applied and a small OpSite over the neck incision. The patient tolerated the procedure well. Grafts/Implants Used: 14.5 Fr x 19 cm Palindrome dual lumen (Lot [id number]) - Complications none - Admit VTE Documentation VTE Present on Admission: Yes VTE Mechan Device Prophylaxis: SCD's
[2020-03-29] MEDS: dexAMETHasone 4 MG Tablet 6 MG PO (09:58)
[2020-03-29] MEDS: Magnesium Chloride 64 MG Delay Rel.Tablet 128 MG PO (09:58)
[2020-03-29] MEDS: Pantoprazole Sodium 20 MG Tablet PO ×2 (09:58→20:58)
--- NOTE | 2020-03-29 10:24 | CASEMGMT ---
SW called patient's . SW asked if she had decided which facility she would prefer. She was hesitant. SW expressed understanding that it is difficult to send him somewhere she does not know. SW told her that patient is at least able to speak up if something is wrong. [facility]. SW told her that we just need to know as the 2 facilities use 2 different dialysis companies so we needed to know which dialysis company to send the referral to. SW told her it would not be today. SHAWN Shetty said she spoke with patient and he now wants Hospice. She will call patient's and let SW know. Aidee TOVAR
[2020-03-29 11:35] LABS: Bedside Glucose 134 mg/dL (70-110)
[2020-03-29] MEDS: Acetaminophen 325 MG Tablet 650 MG PO ×2 (12:00→20:57)
--- NOTE | 2020-03-29 12:01 | CASEMGMT ---
Addendum entered by Aidee Lopez 03/29/20 13:52: GOLD spoke with Hemal from [facility] and they cannot do on site dialysis with Acute patients. SW called [facility] and they cannot do onsite dialysis with Acute patients. GOLD will continue to work with team on a d/c plan. Aidee TOVAR Original Note: STATION JAILER spoke with patient's after she spoke with her family and they would like to proceed with patient going to a [facility] and seeing how he does. GOLD then called [facility] and left a message requesting a return call. Aidee CARMONA DIRECTOR [employer]
--- NOTE | 2020-03-29 12:48 | PN_ITS ---
<Snea Jackson TELLER VAULT - Last Filed: 03/29/20 12:54> Patient Problems: Active and Suspected Problems (Last Reviewed 03/10/20 @ 13:[address] Micky blanchard MD) Sepsis due to pneumonia (Acute) Acute kidney injury (Acute) Hypoxemia (Acute) Elevated troponin (Acute) COVID-19 (Acute) Subjective: Patient seen and examined. Per nursing, patient very anxious overnight and calling out frequently. Discussed with patient plan of care which per discussion with includes SNF at discharge. Patient states he would like to go home and mentioned hospice services. Spoke with regarding hospice and she then called patient to discuss amongst themselves. They would like to proceed with SNF as planned and if patient does not improve, will consider hospice consult at that time. Patient denies new complaints. - Physical Exam Vitals/I&O's: Vital Signs Temp Pulse Resp BP Pulse Ox 97.6 F L 86 18 110/50 L 95 03/29/20 09:56 03/29/20 09:56 03/29/20 09:56 03/29/20 09:56 03/29/20 09:56 Oxygen Flow Rate (L/min) 5 Oxygen Delivery Method Nasal Cannula Weight: 236 lb 5.369 oz Body Mass Index (BMI) 36.6 Intake and Output for Last 24 Hours 03/27/20 03/28/20 03/29/20 23:59 23:59 23:59 Intake Total 670 / 670 580 / 700 180 / 180 Output Total 300 / 300 1890 / 1940 175 / 175 Balance 370 / 370 -1310 / -1240 5 / 5 General: Oriented x3, Cooperative, No apparent distress HEENT: Atraumatic, PERRLA, EOMI, Normocephalic Oral: Dry Mucosa Neck: Supple, No JVD, Negative Carotid Bruits Lungs: Clear to auscultation Cardiovascular: - - Atrial fibrillation, rate controlled Abdomen: Bowel Sounds Present, Soft, Non Tender, Non-Distended Extremities: No clubbing, No cyanosis, No edema, Capillary Refill Less than 3 Seconds Skin: - - Mid back chronic wound, dressing intact. Musculoskeletal: No Tenderness to Palpation of Joints or Extremities Neurological: Cranial nerves II-XII grossly intact, Neuro grossly intact Psych/Mental Status: Flat Affect Microbiology Past 72 Hours 03/21/20 23:05 Blood Culture (Wb) - No Site/Description Given Blood Culture - Final No growth in 5 days. 03/21/20 23:55 Blood Culture (Wb) - No Site/Description Given Blood Culture - Final No growth in 5 days. 03/26/20 09:45 Stool Stool Occult Blood (PADMINI) - Final 03/24/20 Unknown Sputum, Expectorated/Coughed Gram Stain - Final 03/24/20 Unknown Sputum, Expectorated/Coughed Respiratory Culture - Final Presumptive C albicans Laboratory Results 03/25/20 21:15: Hep B Core Total Ab Negative 03/28/20 06:28: Creatinine 1.25, Estim Creat Clear Calc 49.40, Est GFR (MDRD) Af Amer 73, Est GFR (MDRD) Non-Af 60, BUN/Creatinine Ratio 83.2 H 03/28/20 16:08: POC Glucose 111 H 03/28/20 21:53: POC Glucose 126 H 03/29/20 06:04: POC Glucose 110 03/29/20 06:05: WBC 12.0 H, RBC 2.20 L, Hgb 7.9 L, Hct 25.8 L, MCV 117.3 H, MCH 35.9 H, MCHC 30.6 L, RDW Std Deviation 78.0 H, RDW Coeff of Reggie 18.1 H, Plt Count 154, MPV 10.9, Immature Gran % (Auto) 0.500, Neut % (Auto) 94.1 H, Lymph % (Auto) 1.4 L, Livingston % (Auto) 3.9, Eos % (Auto) 0.0, Baso % (Auto) 0.1, Absolute Neuts (auto) 11.2 H, Absolute Lymphs (auto) 0.17 L, Nucleated RBC % 0.8, Differential Comment SCANNED, Hypochromasia RARE 03/29/20 06:05: Sodium 134 L, Potassium 4.6, Chloride 99, Carbon Dioxide 29.0, Anion Gap 6, BUN 65 H, Creatinine 3.47 H, Estim Creat Clear Calc 17.80, Est GFR (MDRD) Af Amer 22 L, Est GFR (MDRD) Non-Af 18 L, BUN/Creatinine Ratio 18.7, Glucose 113 H, Calcium 7.5 L, Total Bilirubin 0.40, AST 28, ALT 41, Alkaline Phosphatase 85, Total Protein 6.7, Albumin 2.5 L, Globulin 4.2, Albumin/Globulin Ratio 0.6 L 03/29/20 11:26: POC Glucose 134 H Current Medications Acetaminophen (Acetaminophen 325 Mg Tablet) 650 mg PO Q6H PRN PRN PRN Reason: Pain Score 1-10/Temp > 100.7 F Last Admin: 03/29/20 12:00 Dose: 650 mg Documented by: Albuterol Sulfate (Albuterol 2.5 Mg/3 Ml Vial.Neb.) 2.5 mg INHALATION Q2H PRN PRN PRN Reason: DYSPNEA Apixaban (Apixaban 5 Mg Tablet) 5 mg PO BID [facility] Last Admin: 03/28/20 16:05 Dose: Not Given Documented by: Atorvastatin Calcium (Atorvastatin Calcium 20 Mg Tablet) 20 mg PO QHS [facility] Last Admin: 03/28/20 21:46 Dose: 20 mg Documented by: Calamine/Phenol (Menthol/Lanolin/Calamine/Znox 113 Gm Tube) 1 applic TOPICAL TID [facility]; Protocol Last Admin: 03/29/20 06:05 Dose: 1 applicatio Documented by: Dexamethasone (Dexamethasone 4 Mg Tablet) 6 mg PO DAILY [facility] Stop: 03/30/20 10:01 Last Admin: 03/29/20 09:58 Dose: 6 mg Documented by: Gabapentin (Gabapentin 600 Mg Tablet) 600 mg PO QHS [facility] Last Admin: 03/28/20 21:46 Dose: 600 mg Documented by: Sodium Chloride () 250 mls @ 15 mls/hr IV .[id number] PRN PRN Reason: Saline Flush Last Infusion: 03/24/20 23:29 Dose: Infused Documented by: Sodium Chloride () 250 mls @ 15 mls/hr IV .[id number] PRN PRN Reason: Additional IVPB Infusion Sodium Chloride () 500 mls @ 30 mls/hr IV .[id number] [facility] Last Admin: 03/29/20 07:40 Dose: 30 mls/hr Documented by: Insulin Human Lispro (Insulin Lispro 100 Unit/Ml Insuln.Pen) 0 unit SC ACHS [facility]; Protocol Last Admin: 03/29/20 11:38 Dose: Not Given Documented by: L-Arginine/L-Glutamine/Calcium HMB (Jackson (Unflavored) Packet) 1 packet PO BIDCM [facility] Last Admin: 03/29/20 09:57 Dose: Not Given Documented by: Lidocaine HCl (Lidocaine Jelly 2% Tube 30 Ml) 0.25 tube TOPICAL TID [facility]; Protocol Last Admin: 03/29/20 06:05 Dose: 0.25 tube Documented by: Magnesium Chloride (Magnesium Chloride 64 Mg Delay Rel.Tablet) 128 mg PO DAILY@0800 [facility] Last Admin: 03/29/20 09:58 Dose: 128 mg Documented by: Ondansetron HCl (Ondansetron 4 Mg/2 Ml Vial) 4 mg IV Q8H PRN PRN PRN Reason: NAUSEA/VOMITING Pantoprazole Sodium (Pantoprazole Sodium 20 Mg Tablet) 20 mg PO BID [facility] Last Admin: 03/29/20 09:58 Dose: 20 mg Documented by: Sodium Chloride (0.9% Saline Lock 10 Ml Syringe) 10 - 40 ml IV UD PRN PRN Reason: SALINE FLUSH Last Admin: 03/29/20 04:32 Dose: 30 ml Documented by: Medical Necessity - Tobacco Use Smoking Status: Current every day smoker Assessment/Plan All Active Problems (Last Reviewed 03/10/20 @ 13:[address] Micky Mauro MD) Sepsis due to pneumonia (Acute) Acute kidney injury (Acute) Hypoxemia (Acute) Elevated troponin (Acute) COVID-19 (Acute) Elevated INR (Resolved) Skin tear of left elbow without complication (Resolved) 1. Acute hypoxic respiratory failure secondary to MRSA pneumonia and COVID-19 pneumonia-ID and pulmonary medicine consulted. On dexamethasone. Received plasma 03/22/2020. Linezolid course completed. Continue supplement oxygen to maintain O2 sat above 90%. 2. Septic shock-secondary to above. Resolved. 3. Acute kidney injury on chronic kidney disease stage III-nephrology following. Acute kidney injury secondary to ischemic ATN from septic shock. General surgery following. Tunneled dialysis catheter placed this morning. Continue dialysis per nephrology. 4. Chronic alcoholism with hepatic cirrhosis- lactulose, Lasix have been held due to hypotension. 5. Nonhealing surgical wound of lower back-following at wound center. Patient had surgical debridement for abscess following lumbar spine surgery. Original surgery was in 2016 and since then he has had multiple complications. Wound RN consult. 6. History of paroxysmal atrial fibrillation/atrial flutter/paroxysmal SVT-con tinue Eliquis. Off of beta-cyndi due to hypotension. 7. 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 8. Chronic anemia-Following with hematology, Dr. Prah. Pantoja. 9. History of nonischemic cardiomyopathy-echocardiogram February 2019 demonstrated an EF of 55%, moderate tricuspid valve insufficiency, pulmonary artery systolic pressure 46 mmHg. Patient previously had an EF of 25% which improved as noted. 10. Hypertension-stable. 11. Hyperlipidemia-continue statin regimen. 12. History of non-Hodgkin's lymphoma status post splenectomy DVT prophylaxis- Eliquis Discharge planning: SNF pending acceptance, patient and family considering hospice however would like to attempt to rehab at SNF prior to making this decision This patient was seen by DANNIELLE Melgar under the supervision of Dr. Cisneros. <Ady Cisneros - Last Filed: 03/29/20 13:22> - Physical Exam Vitals/I&O's: Vital Signs Temp Pulse Resp BP Pulse Ox 36.4 C L 86 18 110/50 L 95 03/29/20 09:56 03/29/20 09:56 03/29/20 09:56 03/29/20 09:56 03/29/20 09:56 Oxygen Flow Rate (L/min) 5 Oxygen Delivery Method Nasal Cannula Weight: 107.2 kg Body Mass Index (BMI) 36.6 Intake and Output for Last 24 Hours 03/27/20 03/28/20 03/29/20 23:59 23:59 23:59 Intake Total 670 / 670 580 / 700 180 / 180 Output Total 300 / 300 1890 / 1940 175 / 175 Balance 370 / 370 -1310 / -1240 5 / 5 General: Oriented x3, No apparent distress HEENT: Atraumatic, Normocephalic Oral: Dry Mucosa Neck: Supple, Negative Carotid Bruits Lungs: Clear to auscultation Cardiovascular: - Abdomen: Bowel Sounds Present, Soft, Non Tender, Non-Distended Extremities: No edema, No Calf Tenderness Skin: - Microbiology Past 72 Hours 03/21/20 23:05 Blood Culture (Wb) - No Site/Description Given Blood Culture - Final No growth in 5 days. 03/21/20 23:55 Blood Culture (Wb) - No Site/Description Given Blood Culture - Final No growth in 5 days. 03/26/20 09:45 Stool Stool Occult Blood (PADMINI) - Final 03/24/20 Unknown Sputum, Expectorated/Coughed Gram Stain - Final 03/24/20 Unknown Sputum, Expectorated/Coughed Respiratory Culture - Final Presumptive C albicans Laboratory Results 03/25/20 21:15: Hep B Core Total Ab Negative 03/28/20 06:28: Creatinine 1.25, Estim Creat Clear Calc 49.40, Est GFR (MDRD) Af Amer 73, Est GFR (MDRD) Non-Af 60, BUN/Creatinine Ratio 83.2 H 03/28/20 16:08: POC Glucose 111 H 03/28/20 21:53: POC Glucose 126 H 03/29/20 06:04: POC Glucose 110 03/29/20 06:05: WBC 12.0 H, RBC 2.20 L, Hgb 7.9 L, Hct 25.8 L, MCV 117.3 H, MCH 35.9 H, MCHC 30.6 L, RDW Std Deviation 78.0 H, RDW Coeff of Reggie 18.1 H, Plt Count 154, MPV 10.9, Immature Gran % (Auto) 0.500, Neut % (Auto) 94.1 H, Lymph % (Auto) 1.4 L, Livingston % (Auto) 3.9, Eos % (Auto) 0.0, Baso % (Auto) 0.1, Absolute Neuts (auto) 11.2 H, Absolute Lymphs (auto) 0.17 L, Nucleated RBC % 0.8, Differential Comment SCANNED, Hypochromasia RARE 03/29/20 06:05: Sodium 134 L, Potassium 4.6, Chloride 99, Carbon Dioxide 29.0, Anion Gap 6, BUN 65 H, Creatinine 3.47 H, Estim Creat Clear Calc 17.80, Est GFR (MDRD) Af Amer 22 L, Est GFR (MDRD) Non-Af 18 L, BUN/Creatinine Ratio 18.7, Glucose 113 H, Calcium 7.5 L, Total Bilirubin 0.40, AST 28, ALT 41, Alkaline Phosphatase 85, Total Protein 6.7, Albumin 2.5 L, Globulin 4.2, Albumin/Globulin Ratio 0.6 L 03/29/20 11:26: POC Glucose 134 H Current Medications Acetaminophen (Acetaminophen 325 Mg Tablet) 650 mg PO Q6H PRN PRN PRN Reason: Pain Score 1-10/Temp > 100.7 F Last Admin: 03/29/20 12:00 Dose: 650 mg Documented by: Albuterol Sulfate (Albuterol 2.5 Mg/3 Ml Vial.Neb.) 2.5 mg INHALATION Q2H PRN PRN PRN Reason: DYSPNEA Apixaban (Apixaban 5 Mg Tablet) 5 mg PO BID [facility] Last Admin: 03/28/20 16:05 Dose: Not Given Documented by: Atorvastatin Calcium (Atorvastatin Calcium 20 Mg Tablet) 20 mg PO QHS [facility] Last Admin: 03/28/20 21:46 Dose: 20 mg Documented by: Calamine/Phenol (Menthol/Lanolin/Calamine/Znox 113 Gm Tube) 1 applic TOPICAL TID [facility]; Protocol Last Admin: 03/29/20 12:51 Dose: 1 applicatio Documented by: Dexamethasone (Dexamethasone 4 Mg Tablet) 6 mg PO DAILY [facility] Stop: 03/30/20 10:01 Last Admin: 03/29/20 09:58 Dose: 6 mg Documented by: Gabapentin (Gabapentin 600 Mg Tablet) 600 mg PO QHS [facility] Last Admin: 03/28/20 21:46 Dose: 600 mg Documented by: Sodium Chloride () 250 mls @ 15 mls/hr IV .[id number] PRN PRN Reason: Saline Flush Last Infusion: 03/24/20 23:29 Dose: Infused Documented by: Sodium Chloride () 250 mls @ 15 mls/hr IV .[id number] PRN PRN Reason: Additional IVPB Infusion Sodium Chloride () 500 mls @ 30 mls/hr IV .[id number] [facility] Last Admin: 03/29/20 07:40 Dose: 30 mls/hr Documented by: Insulin Human Lispro (Insulin Lispro 100 Unit/Ml Insuln.Pen) 0 unit SC ACHS [facility]; Protocol Last Admin: 03/29/20 11:38 Dose: Not Given Documented by: L-Arginine/L-Glutamine/Calcium HMB ([facility] ([facility]flav[facility]) [facility]) [facility] Last Admin: 03/29/20 09:57 Dose: Not Given Documented by: Lidocaine HCl (Lidocaine Jelly 2% Tube 30 Ml) 0.25 tube TOPICAL TID [facility]; Protocol Last Admin: 03/29/20 12:52 Dose: 0.25 tube Documented by: Magnesium Chloride (Magnesium Chloride 64 Mg Delay Rel.Tablet) 128 mg PO DAILY@0800 [facility] Last Admin: 03/29/20 09:58 Dose: 128 mg Documented by: Ondansetron HCl (Ondansetron 4 Mg/2 Ml Vial) 4 mg IV Q8H PRN PRN PRN Reason: NAUSEA/VOMITING Pantoprazole Sodium (Pantoprazole Sodium 20 Mg Tablet) 20 mg PO BID [facility] Last Admin: 03/29/20 09:58 Dose: 20 mg Documented by: Sodium Chloride (0.9% Saline Lock 10 Ml Syringe) 10 - 40 ml IV UD PRN PRN Reason: SALINE FLUSH Last Admin: 03/29/20 04:32 Dose: 30 ml Documented by: Assessment/Plan Patient seen and examined independently. Data reviewed. I agree with the above note by the nurse practitioner. 1. Acute hypoxic respiratory failure secondary to MRSA pneumonia and COVID-19. 2. Septic shock: Resolved 3. Acute kidney injury: Likely related to ATN but still requiring dialysis. Patient to have a tunneled dialysis catheter on the . Inpatient E&M: 25647 Subs Hosp L2
--- NOTE | 2020-03-29 14:04 | CASEMGMT ---
SW spoke with RN PHOENXI and LITIGATION ASSISTANT and we discussed patient going to an LTACH. SW called patient's and let her know that the 2 nursing facilities SW spoke with her about are not able to take patient's that are on Acute dialysis. SW then discussed LTACH with her and she was in agreement with proceeding with LTACH. She said that actually would make her feels better. She was open to [facility] located in [facility]. SW told her someone will be in touch with her to keep her updated. Juliana HARDY CM is working on referral. Aidee CARMONA RETAIL CLIENT SOLUTIONS ANALYST
--- NOTE | 2020-03-29 14:36 | CASEMGMT ---
ANTONY GARIBAY NOTE: Call placed to june Juan liaison @ [facility] and referral made. Yessica made aware pt is new dialysis pt, COVID + (tested on 03/21) and is medically ready for discharge. She states, if they are able to accept pt, the earliest they can accept pt is 03/31. Referral packet faxed to [facility] at this time. Awaiting acceptance. [facility]: PH: [phone] PH: (intake) [phone] Alexander GUTIERRES RN CM
[2020-03-29] MEDS: Insulin Lispro 100 UNIT/ML INSULN.PEN SC ×2 (16:10→21:04)
[2020-03-29 16:46] LABS: Bedside Glucose 183 mg/dL (70-110)
--- NOTE | 2020-03-29 19:48 | NURSING ---
Pt transitioned from NRB to 15L high flow nasal cannula at this time. Continuous pulse ox in place.
[2020-03-29] MEDS: ALPRAZolam 0.5 MG Tablet PO (20:56)
[2020-03-29] MEDS: Atorvastatin Calcium 20 MG Tablet PO (20:58)
[2020-03-29] MEDS: Gabapentin 600 MG Tablet PO (20:58)
--- NOTE | 2020-03-29 22:22 | NURSING ---
Garcia flushed with 50 mL saline at this time.
[2020-03-30] VITALS (12 sets, daily range): BP systolic 87–110; BP diastolic 52–77; PULSE 101–122; RESP 12–32; TEMP 36.5–36.7; O2SAT 88–100
[2020-03-30 00:16] LABS: Bedside Glucose 164 mg/dL (70-110)
--- NOTE | 2020-03-30 00:16 | CPS ---
NURSING INFORMED RT THAT PATIENT KEEPS REMOVING NRB MASK AND DESATURTING.
[2020-03-30] MEDS: Menthol/Lanolin/Calamine/Znox 113 GM Tube 1 APPLIC TOPICAL (06:33)
--- NOTE | 2020-03-30 06:44 | NURSING ---
Garcia irrigated with 50 mL saline at this time.
[2020-03-30 07:00] LABS: Bedside Glucose 119 mg/dL (70-110)
--- NOTE | 2020-03-30 07:50 | NURSING ---
MD in to see and evaluate patient, discussed with this RN about plan to notify family and recommend patient to go hospice care.
[2020-03-30 08:20] LABS: Hematocrit 26.9 % (40-54); Mean Corp Hgb Conc 29.7 g/dL (32-36); Mean Corpuscular Hgb 35.6 pg (27.0-32.0); Mean Corpuscular Volume 119.6 fL (80-94); POSITIVE MORPHOLOGY YES; Platelet Count 158 K/mm3 (150-450); RBC Distribution Width CV 18.5 % (11.6-14.6); RBC Distribution Width SD 81.3 fl (35.1-43.9); Red Blood Count 2.25 M/mm3 (4.6-6.2); White Blood Count 11.9 K/mm3 (4.4-11.0)
--- NOTE | 2020-03-30 08:20 | NURSING ---
Spoke with over phone about plans for patient to begin hospice care. was then educated on process for visitation. Explained need to appropriate PPE and for her to remain in patients room for the full length of visit.
[2020-03-30 08:43] LABS: Anion Gap 9 (5-15); BUN 65 mg/dL (7-18); BUN/Creat Ratio 18.5 RATIO (10-20); Calcium,Total 7.6 mg/dL (8.5-10.1); Chloride 100 mmol/L (98-107); Creatinine, Serum 3.51 mg/dL (0.70-1.30); EST Glomerular Filtration Rate 18 mL/min (>60); Est Glom Filt Rate - Afr Amer 22 mL/min (>60); Estimated Creatinine Clearance 17.59 ml/min; Glucose 107 mg/dL (74-106); Potassium 6.3 mmol/L (3.5-5.1); Sodium Level 132 mmol/L (136-145)
--- NOTE | 2020-03-30 08:44 | CASEMGMT ---
Addendum entered by Juliana Woo 03/30/20 09:25: Call received back from Yessica stating she received the VM re: cancellation of referral. Original Note: ANTONY GARIBAY NOTE: Call placed to Yessica @ [facility]. No answer. VM left re: cancellation of referral. Alexander GUTIERRES RN CM
[2020-03-30 09:03] LABS: Scan Indicated on CBC? Y/N YES- FLAGS NOTED
--- NOTE | 2020-03-30 09:17 | CASEMGMT ---
Addendum entered by Aidee Lopez 03/30/20 09:25: Per Dr Cisneros, Dr Rogers gave the okay for patient to move to the inpatient Hospice Unit. Aidee CARMONA RISK REDUCTION COUNSELOR Original Note: Per membership secretary physician spoke with patient's and she has chosen Hospice as patient had a decline overnight. Patient's came in to be with patient. SW called Hospice and spoke with Tatyana letting her know is at [facility] with patient. She asked that hospitalist call Dr Rogers. SW gave this information to Dr Cisneros. Plan: Likely Inpatient H[facility]ice at [facility] Aidee CARMONA RISK REDUCTION COUNSELOR
--- NOTE | 2020-03-30 09:28 | DCINST_ITS ---
- Discharge Diagnoses Current Active Problems: Current Active and Chronic Problems (Last Reviewed 03/10/20 @ 13:[address] Micky Mauro MD) Sepsis due to pneumonia (Acute) Acute kidney injury (Acute) Hypoxemia (Acute) Elevated troponin (Acute) COVID-19 (Acute) Paroxysmal atrial fibrillation (Chronic) Right ventricular dilation (Chronic) Right ventricular systolic dysfunction (Chronic) Non-ischemic cardiomyopathy (Chronic) PSVT (paroxysmal supraventricular tachycardia) (Chronic) Chronic combined systolic and diastolic CHF (congestive heart failure) (Chronic) Secondary pulmonary arterial hypertension (Chronic) Right bundle branch block (RBBB) (Chronic) Essential (primary) hypertension (Chronic) Hyperlipidemia (Chronic) Hepatic cirrhosis (Chronic) History of non-Hodgkin's lymphoma (Chronic) Hypergammaglobulinemia (Chronic) Iron deficiency anemia (Chronic) Plasma cell dyscrasia (Chronic) EtOH dependence (Chronic) Non-healing surgical wound (Chronic) Open wound of lumbar region with complication (Chronic) h/o osteomyelitis and is chronic nonhealing surgical wound s/p lumbar decompression surgery Recurrent deep vein thrombosis (DVT) (Chronic) You will use the following diet at home:: No restrictions Allergies/Adverse Reactions: Allergies chlorthalidone Allergy (Verified 03/14/20 07:40) Unknown ramipril [From Altace] Allergy (Verified 03/14/20 07:40) Unknown sulfamethoxazole [From Bactrim] Allergy (Verified 03/14/20 07:40) Other trazodone Allergy (Verified 03/14/20 07:40) Unknown trimethoprim [From Bactrim] Allergy (Verified 03/14/20 07:40) Other prednisone Adverse Reaction (Verified 03/14/20 07:40) Swelling only in big doses Medications to take at Discharge Gabapentin 600 mg PO QHS 02/28/19 Acetaminophen [Tylenol Tablet] 650 mg PO Q6H PRN PRN tablet 03/30/20 Albuterol Aerosols [Ventolin Aerosols] 2.5 mg INHALATION Q2H PRN PRN vial.neb. 03/30/20 Atropine [Atropisol] 4 drp PO Q3H PRN PRN bottle 03/30/20 DiphenhydrAMINE [Benadryl] 25 mg PO Q4H PRN PRN capsule 03/30/20 Guaifenesin [Robitussin] 10 - 20 ml PO Q4H PRN PRN udc 03/30/20 Haloperidol [Haldol] 1 mg PO Q2H PRN PRN tablet 03/30/20 Lidocaine 2% [Xylocaine Jelly] 0.25 tube TOPICAL TID tube 03/30/20 Loperamide [Imodium] 2 mg PO UD PRN capsule 03/30/20 Lorazepam [Ativan] 0.5 mg SL/PO Q3H PRN PRN tab 03/30/20 Mag Hydrox/Al Hydrox/Simeth [Mylanta II] 30 ml PO Q4H PRN PRN udc 03/30/20 Ondansetron [Zofran] 4 mg IV Q8H PRN PRN vial 03/30/20 Pantoprazole Sodium [Protonix] 20 mg PO BID tablet 03/30/20 proMETHazine tablet [Phenergan tablet] 12.5 mg PO Q6H PRN PRN tablet 03/30/20 Primary Care Physician: Bernardo Lawson DO [Primary Care Provider] - Test Results: Test results from this visit will be discussed in further detail at your follow- up appointment, if applicable. Proposed Discharge Date: 03/30/20
--- NOTE | 2020-03-30 09:29 | DS.PCM_ITS ---
Discharge Date and Diagnosis - Problem List Patient Problems: Active and Suspected Problems (Last Reviewed 03/10/20 @ 13:[address] Micky Mauro MD) Sepsis due to pneumonia (Acute) Acute kidney injury (Acute) Hypoxemia (Acute) Elevated troponin (Acute) COVID-19 (Acute) Date of Admission: 03/14/20 Date of Discharge: 03/30/20 - Primary Discharge Diagnosis Acute Problems: Active Problems (Last Reviewed 03/10/20 @ 13:[address] Micky Mauro MD) Sepsis due to pneumonia (Acute) Acute kidney injury (Acute) Hypoxemia (Acute) Elevated troponin (Acute) COVID-19 (Acute) - Secondary Discharge Diagnosis Chronic Problems: Chronic Problems (Last Reviewed 03/10/20 @ 13:[address] Micky Mauro MD) Paroxysmal atrial fibrillation (Chronic) Right ventricular dilation (Chronic) Right ventricular systolic dysfunction (Chronic) Non-ischemic cardiomyopathy (Chronic) PSVT (paroxysmal supraventricular tachycardia) (Chronic) Chronic combined systolic and diastolic CHF (congestive heart failure) (Chronic) Secondary pulmonary arterial hypertension (Chronic) Right bundle branch block (RBBB) (Chronic) Essential (primary) hypertension (Chronic) Hyperlipidemia (Chronic) Hepatic cirrhosis (Chronic) History of non-Hodgkin's lymphoma (Chronic) Hypergammaglobulinemia (Chronic) Iron deficiency anemia (Chronic) Plasma cell dyscrasia (Chronic) EtOH dependence (Chronic) Non-healing surgical wound (Chronic) Open wound of lumbar region with complication (Chronic) h/o osteomyelitis and is chronic nonhealing surgical wound s/p lumbar decompression surgery Recurrent deep vein thrombosis (DVT) (Chronic) Hospital Course and Treatment Imaging Results: Clinical Impression(s) from Imaging Studies Chest X-Ray 03/14/20 09:05 IMPRESSION: Lingular consolidation. Radiographic follow-up is recommended. Electronically Signed: Shen Echeverria, at 9:46 EST , Service support , Chest X-Ray 03/15/20 15:40 IMPRESSION: 1. No change in lingular pneumonia. 2. Poor inspiration with some bibasilar atelectasis per Electronically Signed: Jorgito Enamorado MD at 16:15 EST Tel , Service support , Chest X-Ray 03/16/20 01:49 IMPRESSION: Ill-defined subpleural groundglass opacities are seen more prominent in the lung lingula, may represent atypical pneumonia or viral pneumonia (COVID-19 ?). Electronically Signed: Dereck Rojo, at 3:31 EST Tel , Service support , Chest X-Ray 03/16/20 14:33 IMPRESSION: Interval placement of right internal jugular deep venous line with tip of the catheter overlying the right brachiocephalic vein and no pneumothorax. Electronically Signed: Jorgito Enamorado MD at 15:05 EST Tel , Service support , Chest X-Ray 03/16/20 15:03 IMPRESSION: 1. Interval placement of endotracheal tube with the tip approximately 2 cm above the osmany. 2. Interval placement of nasogastric tube with the tip below the diaphragm. 3. Right internal jugular deep venous line which is unchanged. 4. No change in left lower lobe pneumonia per Electronically Signed: Jorgito Enamorado MD at 15:34 EST Tel , Service support , Chest X-Ray 03/25/20 15:10 IMPRESSION: The tip of the right internal jugular venous catheter is at the junction of the superior vena cava and right atrium. Small bilateral pleural effusions with bibasilar atelectasis worse on the left side superimposed on CHF. Electronically Signed: Shen Echeverria, at 15:24 EST , Service support , Chest X-Ray 03/29/20 08:30 IMPRESSION: A single C-arm x-ray is noted with a hemodialysis catheter and a right PICC line catheter in place in good position. Electronically Signed: Wade Raza, at 10:38 EST Tel , Service support , Consultations 03/14/20 13:13 Consult: Onc/Wound/cardiothoracic physiotherapist Routine Comment: Wilber Oleary Dasari: nephrology [facility]: general surgery Bi Mendes: [facility] Operations: None, - - tunnelled dialysis catheter. Procedures: Central line placement, Dialysis Summary of Care Provided: The patient is a 74 year old M on 14 March with shortness of breath. Patient was found to have pneumonia, initially Covid negative. Patient was found to lutz ve an MRSA pneumonia. Complicating this he did develop acute kidney injury and was seen by nephrology. Dialysis was eventually initiated and patient did have a tunneled dialysis catheter eventually placed on the prior to that he had a temporary dialysis catheter. On the , patient did test positive for COVID-19 and was started on treatment for such. But patient overall remained stable. Eventually plan was the patient to go to a snf facility that would do dialysis and accept Covid 19 patients. However we were unable to find any and then we are looking at long-term acute care facilities. On the morning of the , patient became unresponsive, hypotensive and appeared ashen. I discussed with the patient's , Yolanda, and explained his situation. Prior to that patient was already DNR [facility] arrest no intubation. I told her I did not know specifically what was going on with him but he did not look well and that he did not look like he would survive what ever insult was occurring. I did recommend hospice which she was immediately on board with. Patient previously, when he was alert, had been mentioning to other staff about the possibility of hospice. Patient will be transferred to the inpatient hospice center. I did discuss the case with Dr. Rogers and updated them on the information about the patient. [] Patient Problems: Active and Suspected Problems (Last Reviewed 03/10/20 @ 13:[address] Micky Mauro MD) Sepsis due to pneumonia (Acute) Acute kidney injury (Acute) Hypoxemia (Acute) Elevated troponin (Acute) COVID-19 (Acute) - Physical Exam Vitals/I&O's: Vital Signs Temp Pulse Resp BP Pulse Ox 36.6 C 102 H 24 H 87/52 L 100 03/30/20 07:58 03/30/20 07:58 03/30/20 07:58 03/30/20 07:58 03/30/20 07:58 Oxygen Flow Rate (L/min) 20 Oxygen Delivery Method Bi-pap Weight: 106 kg Body Mass Index (BMI) 36.6 Intake and Output for Last 24 Hours 03/28/20 03/29/20 03/30/20 23:59 23:59 23:59 Intake Total 580 / 700 1270 / 1270 0 / 0 Output Total 1890 / 1940 335 / 335 8 / 8 Balance -1310 / -1240 935 / 935 -8 / -8 General: - - unresponsive. afebrile. ashen appearance. HEENT: Atraumatic, Normocephalic Oral: Moist Mucosa, No Gingival or Mucosal Lesions/ Ulcerations Neck: No Nodes, Thyroid Normal Size and Texture Lungs: Diminished, - - coarse breath sounds Cardiovascular: Regular rate, Regular Rhythm, Normal S1, Normal S2, No murmurs Abdomen: Bowel Sounds Present, Soft, Non Tender, Non-Distended, No Hepato- splenomegaly Extremities: No edema, No Calf Tenderness Microbiology Past 72 Hours 03/21/20 23:05 Blood Culture (Wb) - No Site/Description Given Blood Culture - Final No growth in 5 days. 03/21/20 23:55 Blood Culture (Wb) - No Site/Description Given Blood Culture - Final No growth in 5 days. Laboratory Results 03/29/20 11:26: POC Glucose 134 H 03/29/20 16:08: POC Glucose 183 H 03/29/20 21:03: POC Glucose 164 H 03/30/20 06:29: POC Glucose 119 H 03/30/20 08:04: WBC 11.9 H, RBC 2.25 L, Hgb 8.0 L, Hct 26.9 L, MCV 119.6 H, MCH 35.6 H, MCHC 29.7 L, RDW Std Deviation 81.3 H, RDW Coeff of Reggie 18.5 H, Plt Count 158, MPV 12.0 03/30/20 08:04: Sodium 132 L, Potassium 6.3 H*, Chloride 100, Carbon Dioxide 23.0, Anion Gap 9, BUN 65 H, Creatinine 3.51 H, Estim Creat Clear Calc 17.59, Est GFR (MDRD) Af Amer 22 L, Est GFR (MDRD) Non-Af 18 L, BUN/Creatinine Ratio 18.5, Glucose 107 H, Calcium 7.6 L Current Medications Acetaminophen (Acetaminophen 325 Mg Tablet) 650 mg PO Q6H PRN PRN PRN Reason: Pain Score 1-10/Temp > 100.7 F Last Admin: 03/29/20 20:57 Dose: 650 mg Documented by: Al Hydroxide/Mg Hydroxide (Mag Hydrox/Al Hydrox/Simeth 30 Ml Udc) 30 ml PO Q4H PRN PRN PRN Reason: Epigastric Distress Albuterol Sulfate (Albuterol 2.5 Mg/3 Ml Vial.Neb.) 2.5 mg INHALATION Q2H PRN PRN PRN Reason: DYSPNEA Atropine Sulfate (Atropine Sulfate 1% 2 Ml Bottle) 4 drop PO Q3H PRN PRN PRN Reason: Congestion Calamine/Phenol (Menthol/Lanolin/Calamine/Znox 113 Gm Tube) 1 applic TOPICAL TID [facility]; Protocol Last Admin: 03/30/20 06:33 Dose: 1 applicatio Documented by: Dexamethasone (Dexamethasone 4 Mg Tablet) 6 mg PO DAILY [facility] Stop: 03/30/20 10:01 Last Admin: 03/29/20 09:58 Dose: 6 mg Documented by: Diphenhydramine HCl (Diphenhydramine 25 Mg Capsule) 25 mg PO Q4H PRN PRN PRN Reason: Extrapyridimal Spasm/Itching Gabapentin (Gabapentin 600 Mg Tablet) 600 mg PO QHS [facility] Last Admin: 03/29/20 20:58 Dose: 600 mg Documented by: Guaifenesin (Guaifenesin 10 Ml Udc (200mg/10ml)) 10 - 20 ml PO Q4H PRN PRN PRN Reason: Productive Cough Haloperidol (Haloperidol 1 Mg Tablet) 1 mg PO Q2H PRN PRN PRN Reason: Opioid Induced Nausa/Vomiting Sodium Chloride () 250 mls @ 15 mls/hr IV .[id number] PRN PRN Reason: Saline Flush Last Infusion: 03/24/20 23:29 Dose: Infused Documented by: Sodium Chloride () 250 mls @ 15 mls/hr IV .[id number] PRN PRN Reason: Additional IVPB Infusion Sodium Chloride () 500 mls @ 30 mls/hr IV .[id number] [facility] Last Admin: 03/29/20 23:37 Dose: Not Given Documented by: Insulin Human Lispro (Insulin Lispro 100 Unit/Ml Insuln.Pen) 0 unit SC ACHS [facility]; Protocol Last Admin: 03/30/20 06:34 Dose: Not Given Documented by: L-Arginine/L-Glutamine/Calcium HMB (Jackson (Unflavored) Packet) 1 packet PO BIDCM [facility] Last Admin: 03/29/20 16:18 Dose: Not Given Documented by: Lidocaine HCl (Lidocaine Jelly 2% Tube 30 Ml) 0.25 tube TOPICAL TID [facility]; Protocol Last Admin: 03/30/20 06:33 Dose: 0.25 tube Documented by: Loperamide HCl (Loperamide 2 Mg Capsule) 2 mg PO UD PRN PRN Reason: After each liquid stool Lorazepam (Lorazepam 0.5 Mg Tablet) 0.5 mg SL/PO Q3H PRN PRN PRN Reason: Restlessness/Anxiety Magnesium Chloride (Magnesium Chloride 64 Mg Delay Rel.Tablet) 128 mg PO DAILY@0800 [facility] Last Admin: 03/29/20 09:58 Dose: 128 mg Documented by: Ondansetron HCl (Ondansetron 4 Mg/2 Ml Vial) 4 mg IV Q8H PRN PRN PRN Reason: NAUSEA/VOMITING Pantoprazole Sodium (Pantoprazole Sodium 20 Mg Tablet) 20 mg PO BID [facility] Last Admin: 03/29/20 20:58 Dose: 20 mg Documented by: Promethazine HCl (Promethazine 25 Mg Tablet) 12.5 mg PO Q6H PRN PRN PRN Reason: UNSPECIFIED NAUSEA/VOMITING Sodium Chloride (0.9% Saline Lock 10 Ml Syringe) 10 - 40 ml IV UD PRN PRN Reason: SALINE FLUSH Last Admin: 03/29/20 04:32 Dose: 30 ml Documented by: Discharge Diet: No Restrictions Home Medications: Medications to take at Discharge Gabapentin 600 mg PO QHS 02/28/19 Acetaminophen [Tylenol Tablet] 650 mg PO Q6H PRN PRN tablet 03/30/20 Albuterol Aerosols [Ventolin Aerosols] 2.5 mg INHALATION Q2H PRN PRN vial.neb. 03/30/20 Atropine [Atropisol] 4 drp PO Q3H PRN PRN bottle 03/30/20 DiphenhydrAMINE [Benadryl] 25 mg PO Q4H PRN PRN capsule 03/30/20 Guaifenesin [Robitussin] 10 - 20 ml PO Q4H PRN PRN udc 03/30/20 Haloperidol [Haldol] 1 mg PO Q2H PRN PRN tablet 03/30/20 Lidocaine 2% [Xylocaine Jelly] 0.25 tube TOPICAL TID tube 03/30/20 Loperamide [Imodium] 2 mg PO UD PRN capsule 03/30/20 Lorazepam [Ativan] 0.5 mg SL/PO Q3H PRN PRN tab 03/30/20 Mag Hydrox/Al Hydrox/Simeth [Mylanta II] 30 ml PO Q4H PRN PRN udc 03/30/20 Ondansetron [Zofran] 4 mg IV Q8H PRN PRN vial 03/30/20 Pantoprazole Sodium [Protonix] 20 mg PO BID tablet 03/30/20 proMETHazine tablet [Phenergan tablet] 12.5 mg PO Q6H PRN PRN tablet 03/30/20 Primary Care Physician: Bernardo Lawson DO [Primary Care Provider] - Disposition: Hospice Medical Facility Minutes spent on discharge:: 45 Patient Condition:: Poor Medical Necessity - Tobacco Use Smoking Status: Current every day smoker Meaningful Use Info Meaningful Use Diagnoses (Choose all that apply): None applicable Inpatient E&M: 21764 Disch Hosp
== END 2020-03-30 10:30 | disposition hospice, inpatient (51) | DRG 871 ==
LOC: ED 09:33 → PCU 11:26 → ICU 03-16 03:43 → MS3 03-21 07:19 → ICU 03-21 19:37 → PCU 03-24 22:03
PROVIDERS: Family Medicine; Internal Medicine; Internal Medicine Critical Care Medicine; Internal Medicine Nephrology; Nurse Practitioner Family; Surgery; Admitting Provider Internal Medicine; Emergency Provider Emergency Medicine; PCP Family Medicine
PROC: 0JH63XZ Insertion of Tunneled Vascular Access Device into Chest Subcutaneous Tissue and Fascia, Percutaneous Approach (ICD-10-PCS; principal; 2020-03-29 07:15)
DX: A41.02 Sepsis due to Methicillin resistant Staphylococcus aureus (principal); J15.212 Pneumonia due to Methicillin resistant Staphylococcus aureus; R65.21 Severe sepsis with septic shock; G93.41 Metabolic encephalopathy; J96.01 Acute respiratory failure with hypoxia; J96.02 Acute respiratory failure with hypercapnia; N17.0 Acute kidney failure with tubular necrosis; U07.1 COVID-19; J12.89 Other viral pneumonia; R57.8 Other shock; I13.0 Hypertensive heart and chronic kidney disease with heart failure and stage 1 through stage 4 chronic kidney disease, or unspecified chronic kidney disease; I50.42 Chronic combined systolic (congestive) and diastolic (congestive) heart failure; I47.1 Supraventricular tachycardia; I42.8 Other cardiomyopathies; N18.4 Chronic kidney disease, stage 4 (severe); E87.2 Acidosis; N39.0 Urinary tract infection, site not specified; E87.6 Hypokalemia; K21.9 Gastro-esophageal reflux disease without esophagitis; G89.4 Chronic pain syndrome; R31.0 Gross hematuria; R65.20 Severe sepsis without septic shock; K70.30 Alcoholic cirrhosis of liver without ascites; D63.1 Anemia in chronic kidney disease; I27.21 Secondary pulmonary arterial hypertension; I48.0 Paroxysmal atrial fibrillation; D50.9 Iron deficiency anemia, unspecified; E78.5 Hyperlipidemia, unspecified; F10.20 Alcohol dependence, uncomplicated; F17.200 Nicotine dependence, unspecified, uncomplicated; E66.01 Morbid (severe) obesity due to excess calories; Z68.37 Body mass index [BMI] 37.0-37.9, adult; Z79.01 Long term (current) use of anticoagulants; Z79.899 Other long term (current) drug therapy; Z86.718 Personal history of other venous thrombosis and embolism; Z86.711 Personal history of pulmonary embolism; Z85.72 Personal history of non-Hodgkin lymphomas; Z90.81 Acquired absence of spleen; Z90.49 Acquired absence of other specified parts of digestive tract
CPT/HCPCS: 31500; 31720; 36415; 36569; 36600; 71045; 76000; 80048; 80053; 80069; 81001; 82274; 82550; 82803; 82962; 83605; 83735; 83880; 84100; 84478; 84484; 85025; 85027; 85610; 85730; 86704; 86706; 86900; 86901; 87040; 87070; 87077; 87086; 87088; 87186; 87205; 87340; 87449; 87493; 87632; 87635; 90937; 93005; 94002; 94003; 94640; 94660; 97110; 97116; 97162; 97167; 97530; 97535; 97802; 97803; 99251; 99285; J2997; J7030; J7040; J7050; A4216; C1750; C1751; C1752; G0257; G0463; J0696; J1940; J2405; J3010; U0002